=== PATIENT | male | born 1965 | race Caucasian/White ===

== ENCOUNTER → 2017-09-06 10:21 | Outpatient (POV) | payer BC, SELFPAY ==
[2017-09-06 10:32] VITALS: BP 177/105; PULSE 80; RESP 18; O2SAT 98
--- NOTE | 2017-09-06 13:16 | HMH.PMCON ---
Assessment and Plan (1) Degenerative disc disease Current visit: Yes Status: Chronic Category: Medical - Assessment and plan all Dx Assessment and Plan for all problems:: Patient is not a narcotic candidate I encouraged him to keep his neurosurgical appointment. I discussed possible interventional treatment such as injections and nerve stimulation. Patient is uninterested in that at this time. This note was dictated using voice recognition software and may contain errors or omissions HPI - Data of Consult Consult date: 09/06/17 Requesting Physician: Bing Mejia APRN Primary Care Provider: Randy Escalante Family Provider: Silvio Klein - Consult Narrative Reason for consult: low back pain History of present illness: Mr. Hurley is a 52 year old male who presents today for consultation in regards to his low back pain. Patient has an appointment with Dr. Goodson on the for consultation. Patient does have an MRI showing degenerative disc disease and spondylosis. Patient also has a disc protrusion at L5-L6. Patient rates his pain 8 out of 10 today. Patient is on Lyrica 150 mg 1 p.o. twice daily. Patient states that this does not help. Patient's tried and failed chiropractic therapy along with physical therapy. Patient states that lifting increases his pain while heat and rest decreases pain. Patient states most of it in his low back radiating down his left leg. States he is unable to take any injection therapy due to his diabetes. Patient states he is concerned about this. Patient was getting narcotics from pain management in [place] however he was discharged due to failed pill count. I discussed with the patient that we will be unable to continue writing narcotic medications but we will be more than happy to do injective therapies along with potential nerve stimulation in the future. Patient is uninterested in this at this time. CC: Bing Mejia APRN [facility] History I have reviewed the patient's past medical history: Yes 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: Reports:: Diabetes Mellitus Type 2, Hyperlipidemia, Hypertension Denies:: Diabetes Mellitus Type 1 Other 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: Reports: Arthritis Other Surgeries: Yes: Cholecystectomy - *Social History Smoking Status: Current every day smoker Tobacco Type: cigarettes # Packs/Day (cigarettes): 2 Alcohol Intake: never Occupational Status: employed Housing: house - Psychiatric History Expresses thoughts of harming self/others: None Suicide Plan Description: No Plan *Family Hx:: Unable to obtain Review of Systems - Review of Systems ROS General: no recent weight change, no fever, no sleep disturbances Respiratory: no cough, no shortness of air, no recurring pulmonary infections Cardiovascular/Peripheral Vascular: No chest pain, No palpitations, no edema, no shortness of breath. Gastrointestinal: no incontinence, normal bowel movements reported Genitourinary: no incontinence Musculoskeletal: Back pain Psychiatric: normal mood/ affect Neurological: [denies weakness in extremities], [denies balance issues] Meds Allergies Allergy/AdvReac Type Severity Reaction Status Date / Time No Known Allergies Allergy Unverified 03/16/17 14:11 Objective Vital signs: Pulse Resp BP Pulse Ox 80 18 177/105 98 09/06/17 10:32 09/06/17 10:32 09/06/17 10:32 09/06/17 10:32 Narrative: Physical Exam General: Alert and oriented x3, no acute distress, pleasant and cooperative, [on room air] Lungs: Resps E/U, Symmetrical chest expansion, Eyes: PERRL Musculoskeletal: Flexion and extension of lumbar spine somewhat guarded secondary to pain, deep tendon reflexes normal, strength in upper and lower extremities [5/5], [abnormal gait noted] Neurological: speech clear, drafter marine equal, no gross sensory deficits Opioid Risk Tool - Opioid Risk Tool-Male Family hx alcohol abuse: N Family hx illegal drugs: N Family hx rx
--- NOTE | 2017-09-06 13:19 | P.CONS_ITS ---
Assessment and Plan (1) Degenerative disc disease Current visit: Yes Status: Chronic Category: Medical - Assessment and plan all Dx Assessment and Plan for all problems:: Patient is not a narcotic candidate I encouraged him to keep his neurosurgical appointment. I discussed possible interventional treatment such as injections and nerve stimulation. Patient is uninterested in that at this time. This note was dictated using voice recognition software and may contain errors or omissions HPI - Data of Consult Consult date: 09/06/17 Requesting Physician: Bing Mejia APRN Primary Care Provider: Randy Escalante Family Provider: Silvio Klein - Consult Narrative Reason for consult: low back pain History of present illness: Mr. Hurley is a 52 year old male who presents today for consultation in regards to his low back pain. Patient has an appointment with Dr. Goodson on the for consultation. Patient does have an MRI showing degenerative disc disease and spondylosis. Patient also has a disc protrusion at L5-L6. Patient rates his pain 8 out of 10 today. Patient is on Lyrica 150 mg 1 p.o. twice daily. Patient states that this does not help. Patient's tried and failed chiropractic therapy along with physical therapy. Patient states that lifting increases his pain while heat and rest decreases pain. Patient states most of it in his low back radiating down his left leg. States he is unable to take any injection therapy due to his diabetes. Patient states he is concerned about this. Patient was getting narcotics from pain management in [place] however he was discharged due to failed pill count. I discussed with the patient that we will be unable to continue writing narcotic medications but we will be more than happy to do injective therapies along with potential nerve stimulation in the future. Patient is uninterested in this at this time. CC: Bing Mejia APRN [facility] History I have reviewed the patient's past medical history: Yes 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: Reports:: Diabetes Mellitus Type 2, Hyperlipidemia, Hypertension Denies:: Diabetes Mellitus Type 1 Other 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: Reports: Arthritis Other Surgeries: Yes: Cholecystectomy - *Social History Smoking Status: Current every day smoker Tobacco Type: cigarettes # Packs/Day (cigarettes): 2 Alcohol Intake: never Occupational Status: employed Housing: house - Psychiatric History Expresses thoughts of harming self/others: None Suicide Plan Description: No Plan *Family Hx:: Unable to obtain Review of Systems - Review of Systems ROS General: no recent weight change, no fever, no sleep disturbances Respiratory: no cough, no shortness of air, no recurring pulmonary infections Cardiovascular/Peripheral Vascular: No chest pain, No palpitations, no edema, no shortness of breath. Gastrointestinal: no incontinence, normal bowel movements reported Genitourinary: no incontinence Musculoskeletal: Back pain Psychiatric: normal mood/ affect Neurological: [denies weakness in extremities], [denies balance issues] Meds Allergies Allergy/AdvReac Type Severity Reaction Status Date / Time No Known Allergies Allergy Unverified 03/16/17 14:11 Objective Vital signs: Pulse Resp BP Pulse Ox 80 18 177/105 98 09/06/17 10:32 09/06/17 10:32 09/06/17 10:32 09/06/17 10:32 Narrative: Physical Exam General: Alert and
== END ==
PROVIDERS: Family Provider Internal Medicine; PCP Family Medicine; Visit Provider Clinical Nurse Specialist Family Health
DX: M51.36 Other intervertebral disc degeneration, lumbar region (principal)
CPT/HCPCS: 99202

== ENCOUNTER 2023-04-06 04:21 | Inpatient (IN) | payer MEDICARE, MEDICAID, SELFPAY ==
[2023-04-06 04:26] VITALS: PULSE 60
--- NOTE | 2023-04-06 04:29 | PC.NURSE ---
pt arrived to floor at this time
[2023-04-06 04:44] VITALS: BMI 28.3
[2023-04-06] MEDS: FUROSEMIDE 40MG/4ML VIAL 40 MG IV ×3 (04:54→15:51)
[2023-04-06 05:00] VITALS: BP 136/80; PULSE 68; RESP 20; TEMP 36.6; O2SAT 100
--- NOTE | 2023-04-06 05:13 | P.HP_ITS ---
History of Present Illness *Admission Date: 04/06/23 *Reason for visit:: Elevated troponin *History of present illness: This is a 57-year-old male with past medical history of COPD, CAD, HTN, HLD, DM, CHF, former smoker who presents as a transfer from [facility] for further evaluation of NSTEMI. Patient reportedly was admitted to [facility] this week with CHF exacerbation. He was IV diuresed and sent home. He was home less than 12 hours before he woke up with extreme shortness of breath again. He presented to the ER at [facility] and respiratory distress requiring CPAP. He underwent DuoNeb, IV Lasix and Solu-Medrol and had improvement in respiratory symptoms. He denies any chest pain at the time of his episode and still denies chest pain. He also reports that he was worked up recently at for evaluation of troponins and was told that his heart workup was okay Emergency department workup was notable for elevated troponin of 1406 with a change to 1449. Given patient's elevated troponins. Patient was transferred here for further evaluation of NSTEMI. Attempts were made prior to transfer here to transfer to but they were on diversion. Dr. Mcfadden called prior to transfer and is agreeable to see patient here. [facility] Disclaimer: The information contained in this section may have been updated after the patient was seen, as this information can be updated by other users. 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 (Updated 04/06/23 @ 14:21 by Enedelia Ron APRN) Above knee amputation of left lower extremity Asthma Atypical angina CAD in [place] artery Congestive heart failure COPD (chronic obstructive pulmonary disease) Diabetes mellitus Diabetes mellitus, type 2 History of left heart catheterization (LHC) Hyperlipidemia Hypertension Surgical History (Updated 04/06/23 @ 05:28 by MARGE Winchester) History of cholecystectomy Family History (Updated 04/06/23 @ 05:28 by MARGE Winchester) Family history of cancer Social History (Updated 04/06/23 @ 05:28 by MARGE Winchester) Smoking Status: Former smoker tobacco type: cigarettes packs per day: 2 alcohol intake: never current occupational status: employed and disabled Travel in the last 8 weeks: None housing: house current occupational exposures/hazards: No Review of Systems Constitutional Constitutional: Reports system reviewed and no additional complaints, except as documented, Reports body ache(s) and Reports chills Eyes Eyes: Reports system reviewed and no additional complaints, except as documented ENT Ears, Nose, Mouth, and Throat: Reports system reviewed and no additional complaints, except as documented *Cardiovascular Cardiovascular: Reports dyspnea, Reports dyspnea on exertion and Reports edema *Respiratory Respiratory: Reports dyspnea and Reports dyspnea on exertion *Gastrointestinal Gastrointestinal: Reports system reviewed and no additional complaints, except as documented *Genitourinary Genitourinary: Reports system reviewed and no additional complaints, except as documented *Musculoskeletal Musculoskeletal: Reports system reviewed and no additional complaints, except as documented *Neurologic Neurologic: Reports system reviewed and no additional complaints, except as documented Meds Home Medications and Allergies Home Medications Medication Instructions Recorded Confirmed Type atorvastatin 80 mg tablet 80 mg PO DAILY 09/06/17 04/06/23 History gabapentin 600 mg tablet 600 mg PO TID 09/06/17 04/06/23 History albuterol sulfate 90 mcg/actuation 1 puff inhalation DAILYP PRN 04/06/23 04/06/23 History aerosol inhaler Shortness Of Breath Or Wheezing aspirin 81 mg chewable tablet 81 mg PO DAILY 04/06/23 04/06/23 History carvedilol 12.5 mg tablet 12.5 mg PO BID 04/06/23 04/06/23 History dapagliflozin propanediol 10 mg 10 mg PO DAILY 04/06/23 04/06/23 History tablet (Farxiga) entecavir 0.5 mg tablet 0.5 mg PO DIRECTED 04/06/23 04/06/23 History furosemide 40 mg tablet 40 mg PO DAILY 04/06/23 04/06/23 History hydralazine 50 mg tablet 50 mg PO TID 04/06/23 04/06/23 History hydrochlorothiazide 25 mg tablet 25 mg PO DAILY 04/06/23 04/06/23 History insulin aspart U-100 100 unit/mL 5 unit SQ TIDWMEAL 04/06/23 04/06/23 History (3 mL) subcutaneous pen (Novolog FlexPen U-100 Insulin aspart) insulin detemir U-100 100 unit/mL 13 unit SQ HS 04/06/23 04/06/23 History (3 mL) subcutaneous pen (Levemir FlexPen) isosorbide mononitrate 60 mg 60 mg PO DAILY 04/06/23 04/06/23 History tablet,extended release 24 hr loperamide 2 mg capsule 2 mg PO DAILYP PRN Diarrhea 04/06/23 04/06/23 History nitroglycerin 0.4 mg sublingual 0.4 mg sublingual Q5M PRN Chest 04/06/23 04/06/23 History tablet Pain umeclidinium 62.5 mcg/actuation 1 inh inhalation DAILY 04/06/23 04/06/23 History blister powder for inhalation (Incruse Ellipta) New Prescriptions to Start Prescriptions: Allergies Allergy/AdvReac Type Severity Reaction Status Date / Time No Known Allergies Allergy Unverified 03/16/17 14:11 Exam Data for Last 24 hours I & O for Last 24 hours: Intake & Output 04/03/23 04/04/23 04/05/23 04/06/23 23:59 23:59 23:59 23:59 Weight 94.801 kg Constitutional Constitutional: no acute distress *Routine HEENT Exam Head: Present normocephalic and atraumatic Eye: Present EOMI and PERRL ENT: Present mucous membranes moist *Routine Neck Exam Neck: Present supple, full ROM and JVD *Routine Respiratory Exam Respiratory: Present wheezes and normal respiratory effort Comments: Requiring 6 L nasal *Routine Cardiovascular Exam Cardiovascular: Present RRR, Normal S1 and Normal S2 *Routine Abdominal Exam Abdominal: Present soft and normoactive bowel sounds *Routine Rectal Exam Rectal:: deferred *Routine Genitalia Exam Genitalia:: deferred *Routine Extremities Exam Extremities: Present full ROM, normal capillary refill and amputation (Left AKA) *Routine Skin Exam Skin: Present intact and dry *Routine Neurological Exam Neurological: Present alert, oriented X3 and CN II-XII intact Assessment and Plan *Assessment and plan (1) Acute exacerbation of CHF (congestive heart failure): Status: Acute Qualifiers: Heart failure type: unspecified Qualified Code(s): I50.9 - Heart failure, unspecified Category: Medical Code(s): I50.9 - Heart failure, unspecified (2) Non-STEMI (non-ST elevated myocardial infarction): Status: Acute Category: Medical Code(s): I21.4 - Non-ST elevation (NSTEMI) myocardial infarction (3) COPD (chronic obstructive pulmonary disease): Status: Acute Qualifiers: COPD type: chronic bronchitis Chronic bronchitis type: unspecified Dann lified Code(s): J42 - Unspecified chronic bronchitis Category: Medical Code(s): J44.9 - Chronic obstructive pulmonary disease, unspecified (4) Hypertension: Status: Acute Qualifiers: Hypertension type: primary hypertension Qualified Code(s): I10 - Essential (primary) hypertension Category: Medical Code(s): I10 - Essential (primary) hypertension (5) Diabetes mellitus: Status: Acute Qualifiers: Diabetes mellitus complication status: without complication Diabetes mellitus medical terminologist insulin use: with medical terminologist use Diabetes mellitus type: type 2 Qualified Code(s): E11.9 - Type 2 diabetes mellitus without complications; Z79.4 - assisted (current) use of insulin Category: Medical Code(s): E11.9 - Type 2 diabetes mellitus without complications Plan Case discussed with ER physician, request admission for further management of CHF exacerbation, NSTEMI, KKOO versus CKD. Medicine agreed to admit. CHF exacerbation, unspecified Edema of the right lower extremity with pulmonary vascular congestion on x-ray BNP elevated at outside hospital at 1000 Will initiate IV Lasix twice daily Formal echo in a.m. NSTEMI Likely demand given respiratory distress at outside hospital Does have a history of CAD with last stent placement 7 years ago Cardiology consulted Trend tropinins, initial troponin elevated Continue Heparin gtt Nitro for chest pain EKG for worsenign or new chest pain Continue ASA daily Continue antiplatelet therapy A1c and Lipid panel pending HTN HLD CAD Continue DAPT Continue carvedilol Continue statin medication Continue amlodipine DM2 Continue long acting and sliding scale insulin A1C pending DVT PPx Heparin gtt Full Code Rounded on patient after nurse practitioner. Personally examined and interviewed patient. Agree with exam findings and care plan as documented. Cardiology consulted. Will hold on heart cath today given creatinine. Working on obtaining records from [facility] to see if this is his baseline. Patient making urine. A1c 7.5. Troponin stable at 1.6. BNP severely elevated at 43,000
[2023-04-06] MEDS: HEPARIN SODIUM,PORCINE/D5W 500 ML 20 UNIT IV (05:32)
[2023-04-06 05:41] LABS: Basophils % 0.1 % (0.1-2.0); Eosinophils % 0.1 % (0.1-12.0); Hemoglobin 10.3 g/dL (14.1-18.0); Lymphocytes # 0.7 K/mm3 (0.7-4.5); Lymphocytes % 9.2 % (10-50); Mean Corpuscular HGB Conc 33.2 g/dL (31.8-35.4); Mean Corpuscular Hemoglobin 29.7 pg (27.0-31.2); Mean Corpuscular Volume 89.6 fl (80-94); Mean Platelet Volume 9.8 fl (7.4-10.4); Monocytes # 0.1 K/mm3 (0.1-1.0); Monocytes % 1.3 % (1.7-9.3); Neutrophils # 6.7 K/mm3 (1.8-7.8); Neutrophils % 89.3 % (37.0-80.0); Platelet Count 185 K/mm3 (142-424); Red Blood Count 3.47 M/mm3 (4.60-6.20); Red Cell Distribution Width 14.8 % (11.5-17.5); White Blood Count 7.5 K/mm3 (4.8-10.8)
[2023-04-06 05:42] LABS: MANUAL DIFFERENTIAL MANUAL DIFFERENTIAL (MANUAL DIFF)
[2023-04-06 05:47] LABS: Lactic Acid 1.3 mmol/L (0.7-2.1)
[2023-04-06 05:48] LABS: Anion Gap 11.8 mEq/L (5-15); Blood Urea Nitrogen 68 mg/dl (9-20); Calcium 7.9 mg/dl (8.4-10.2); Carbon Dioxide 24 mmol/L (22.0-30.0); Chloride 102 mmol/L (98-107); Chol/HDL Ratio 2.4 (1-3.5); Cholesterol 184 mg/dl (140-200); Creatinine Clearance Estimated 39 mL/min (50-200); Estimated Glomerular Filt Rate 23 ml/min (>60); GFR (African American) 27 ML/MIN (>60); Glucose 292 mg/dl (74-100); HDL Cholesterol 77 mg/dl (40-60); Potassium 4.8 mmoL/L (3.5-5.1); Sodium 133 mmol/L (136-145); Triglycerides 65 mg/dl (30-150); VLDL Cholesterol 13 mg/dL (0-40)
[2023-04-06 05:50] LABS: Lymphocytes % 10 % (10-50); Monocytes % 2 % (2-9); Neutrophils % 88 % (42-76); Platelet Estimate Normal; Prothrombin Time 11.8 seconds (10.1-12.5); RBC Morphology Normal; Total Cells Counted 100
[2023-04-06 05:55] LABS: Hemoglobin A1C 7.5 % (4.0-6.0)
[2023-04-06 06:05] LABS: Procalcitonin 0.169 ng/mL (0.0-2.0)
[2023-04-06 06:12] LABS: POC Glucose,Bedside 310 (70-110)
[2023-04-06 06:14] LABS: Troponin I 1.59 ng/ml (0.00-0.034)
--- NOTE | 2023-04-06 06:19 | ECG_ITS ---
APPROVED REPORT Exam: Resting ECG HR:72 bpm ECG Measurements Heart Rate 72 AXES DE 146 P 51 QRSd 110 QRS -3 QT 425 T 167 QTc [address] DEVIATION AND MODERATE T-WAVE ABNORMALITY, CONSIDER LATERAL ISCHEMIA [-0.1+ mV T-WAVE IN I/aVL/V5/V6] ABNORMAL ECG UNCONFIRMED REPORT Electronically signed by : Ajay Ware MD 04/06/2023 20:39:15
[2023-04-06] MEDS: humaLOG 100 UNITS/ML 3ML VIAL (SSI) SQ ×4 (06:20→20:28)
--- NOTE | 2023-04-06 06:39 | PC.NURSE ---
Pt A&Ox4. Pt has not complained of any pain since arriving to the floor. Above knee amputation to the left leg. Right leg 1+ edema, dry, flaky skin noted to extremity, with some scabs on the lower leg. Lung sounds wheezing. Bowel sounds active. Pt started on heparin drip per Roman from pharmacy.
--- NOTE | 2023-04-06 07:49 | HMH.PHAHEP ---
[facility] Pharmacy Heparin Dosing Demographic Data Admission date:: 04/06/23 Date: 04/06/23 Time: 07:49 Allergies Allergy/AdvReac Type Severity Reaction Status Date / Time No Known Allergies Allergy Unverified 03/16/17 14:11 Height: 1.83 m Weight: 94.8 kg Indication Medication therapy:: Heparin Current Active Problems (Updated 04/08/23 @ 08:11 by Marco Antonio Valentine MD) Anemia (Acute) Acute blood loss anemia (Acute) HFrEF (heart failure with reduced ejection fraction) (Acute) Peripheral arterial disease (Acute) Congestive heart failure (Acute) Atypical angina (Acute) Hyperlipidemia (Acute) Diabetes mellitus (Acute) COPD (chronic obstructive pulmonary disease) (Acute) Hypertension (Acute) CAD in [place] artery (Acute) Non-STEMI (non-ST elevated myocardial infarction) (Acute) Acute exacerbation of CHF (congestive heart failure) (Acute) CVA?: No Bleeding problem?: No Kidney disease?: No LA?: No Desired PTT range:: 50-75 seconds Labs Anticoagulation Lab Results:: 04/06/23 05:31 Hgb 10.3 L Hct 31.0 L Plt Count 185 Monitoring Dose Monitor 1: Date: 04/06/23 Time: 05:30 PTT Result:: 47.0 Infusion Rate:: 1,000 UNITS/HR Dose Monitor 2: Date: 04/06/23 Time: 11:30 PTT Result:: 42.3 Infusion Rate:: INCREASE RATE TO 1,200 UNITS/HR Comment:: 3,000 UNIT BOLUS Dose Monitor 3: Date: 04/06/23 Time: 18:30 PTT Result:: 65.9 Infusion Rate:: 1,200 UNITS/HR Dose Monitor 4: Date: 04/07/23 Time: 01:30 PTT Result:: 24.4 Infusion Rate:: 1,200 UNITS/HR Comment:: 4,000 UNIT BOLUS. PATIENT'S IV HAD INFILTRATED. Dose Monitor 5: Date: 04/07/23 Time: 09:10 PTT Result:: 62.0 Infusion Rate:: 1,200 UNITS/HR Dose Monitor 6: Date: 04/07/23 Time: 16:07 PTT Result:: 53.5 Infusion Rate:: 1,200 UNITS/HR Dose Monitor 7: Date: 04/07/23 Time: 22:02 PTT Result:: 51.3 Infusion Rate:: 1,200 UNITS/HR Dose Monitor 8: Date: 04/08/23 Time: 04:10 PTT Result:: 50.4 Infusion Rate:: 1,200 UNITS/HR Dose Monitor 9: Date: 04/08/23 Time: 11:15 PTT Result:: 56.7 Infusion Rate:: 1,200 UNITS/HR Dose Monitor 10: Date: 04/08/23 Time: 20:27 Comment:: DRIP STOPPED AFTER CATH Core Measures Is INR > or = 2 at discharge?: No Most Recent Labs:: Laboratory Results - last 24 hr 04/06/23 05:31: WBC 7.5, RBC 3.47 L, Hgb 10.3 L, Hct 31.0 L, MCV 89.6, MCH 29.7, MCHC 33.2, RDW 14.8, Plt Count 185, MPV 9.8, Neut % (Auto) 89.3 H, Lymph % (Auto) 9.2 L, [place] % (Auto) 1.3 L, Eos % (Auto) 0.1, Baso % (Auto) 0.1, Neut # (Auto) 6.7, Lymph # (Auto) 0.7, [place] # (Auto) 0.1, Eos # (Auto) 0.0, Baso # (Auto) 0.0, Total Counted 100, Neutrophils % (Manual) 88 H, Lymphocytes % (Manual) 10, Monocytes % (Manual) 2, Platelet Estimate Normal, RBC Morphology Normal, PT 11.8, INR 1.10, APTT 47.0 H, Sodium 133 L, Potassium 4.8, Chloride 102, Carbon Dioxide 24, Anion Gap 11.8, BUN 68 H, Creatinine 2.90 H, Estimated Creat Clear 39, Estimated GFR 23 L, Est GFR ( Amer) 27 L, Glucose 292 H, Hemoglobin A1c 7.5 H, Lactate 1.3, Calcium 7.9 L, Troponin I 1.59 H, Triglycerides 65, Cholesterol 184, LDL Cholesterol Direct 80.60 L, VLDL Cholesterol 13, HDL Cholesterol 77 H, Cholesterol/HDL Ratio 2.4, Procalcitonin 0.169 04/06/23 06:00: POC Glucose 310 H* If INR was < than 2.0 why was therapy stopped?: DRIP STOPPED AFTER CATH Were Heparin and Warfarin started on the same day?: No If not, why?: DRIP STOPPED AFTER CATH
[2023-04-06 08:00] VITALS: BP 148/81; PULSE 60; PULSE 71; RESP 19; TEMP 36.5; O2SAT 100
[2023-04-06] MEDS: CLOPIDOGREL 75MG TAB 75 MG PO (09:12)
[2023-04-06] MEDS: CARVEDILOL 6.25MG TABLET 6.25 MG PO ×2 (09:12→20:28)
[2023-04-06] MEDS: GABAPENTIN 300MG CAPSULE 300 MG PO ×3 (09:12→20:28)
[2023-04-06] MEDS: ISOSORBIDE MONO 60MG TAB.ER.24H 60 MG PO (09:12)
[2023-04-06] MEDS: ASPIRIN 81MG CHEWABLE TABLET 81 MG PO (09:13)
[2023-04-06 09:15] LABS: NT Pro Brain Natriuretic Pep. 42600 pg/mL (0-125)
[2023-04-06 09:20] LABS: Troponin I 1.59 ng/ml (0.00-0.034)
--- OUTSIDE RECORDS SUMMARY | 2023-04-06 10:20 | XMS_ITS | Continuity of Care Document ---
Author Name Unknown Address [address] [place] [address] [phone] Organization [facility] Phone Care Team Providers Care Medical Imaging Technologist Name Role Phone JOSE ORLANDO Admitting DECLINED, PCP Primary Care Unavailable JOSE ORLANDO Unavailable JOSE ORLANDO Primary Attending ALLERGIES AND ADVERSE REACTIONS ALLERGIES AND ADVERSE REACTIONS Code System Allergy Substance Adverse Reaction Date Reaction (Severity) Comment Status Reported By Updated By [id number] RXNorm PENICILLIN Rash (Moderate) active [id number] on March 23, 2023 8:30:57 AM UT FAMILY HISTORY RELATION: Father Status: Cause of : Malignant neoplastic disease Age at : 60 SNOMED-CT Diagnosis Age At Onset [id number] Malignant neoplastic disease RELATION: Mother Status: Cause of : Congestive heart failure Age at : 58 SNOMED-CT Diagnosis Age At Onset [id number] Congestive heart failure RESULTS Patient: WANDER JONES RAY Date of : May [birth year] LABORATORY RESULTS ORDER 200: ARTERIAL BLOOD GA S (LOINC: 49638-5) ORDER DATE: March 23, 2023 8:27:00 AM UTC Specimen Source: Whole Blood PERFORMING LAB: [address] [id number] Result Comment: Final Result Date: March 23, 2023 8:45:00 AM UTC (TECH: TS1) LOINC TEST FLAG [place] [address]-7 Specimen source subject [Type] N ARTERIAL March 23, 2023 8:45:00 AM UTC (TECH: TS1) 25831-0 Arterial patency Wrist artery --pre arterial puncture N YES March 23, 2023 8:45:00 AM UTC (TECH: TS1) 2744-1 pH of Arterial blood L 7.340 7.35 - 7. 45 March 23, 2023 8:45:00 AM UTC (TECH: TS1) 2019-8 Carbon dioxide [Partial pressure] in Arterial blood H 58 mmHg 35 mmHg - 45 mmHg March 23, 2023 8:45:00 AM UTC (TECH: TS1) 2703-7 Oxygen [Partial pressure] in Arterial blood H 188.0 mmHg 80 mmHg - 100 mmHg March 23, 2023 8:45:00 AM UTC (TECH: TS1) 11065-4 Bicarbonate [Moles/volume] standard in Arterial blood H 28.2 mEq/L 21 mEq/L - 25 mEq/L March 23, 2023 8:45:00 AM UTC (TECH: TS1) 59005-4 Base excess standard in Arterial blood by calculation N 4.1 March 23, 2023 8:45:00 AM UTC (TECH: TS1) 2714-4 Fractional oxyhemoglobin in Arterial blood N 100 % March 23, 2023 8:45:00 AM UTC (TECH: TS1) 3150-0 Inhaled oxygen concentration N 100.0 % March 23, 2023 8:45:00 AM UTC (TECH: TS1) 06497-9 Oxygen gas flow Oxygen delivery system N BIPAP March 23, 2023 8:45:00 AM UTC (TECH: TS1) 10989-3 Room temperature N 37.0 Dec emb 2022 8:45:00 AM UTC (TECH: TS1) ORDER 300: B-TYPE NATRIURETI C PEPTIDE BNP (LOINC: 46844-5) ORDER DATE: March 23, 2023 8:27:00 AM UT Specimen Source: Whole Blood PERFORMING LAB: [address] [id number] Result Comment: Final Result Date: March 23, 2023 9:19:00 AM UT (TECH: RJV) LOINC TEST FLAG [place] [address]-7 Natriuretic peptide B [Mass/volume] in Serum or Plasma H 1770.0 pg/mL 0.0 pg/mL - 100 pg/mL March 23, 2023 9:19:00 AM UTC (TECH: RJV) ORDER 600: CBC AUTO W DIFF ( LOINC: 35244-0) ORDER DATE: March 23, 2023 8:27:00 AM UTC Specimen Source: Whole Blood PERFORMING LAB: [address] [id number] Result Comment: Final Result Date: March 23, 2023 8:59:00 AM UTC (TECH: [employer]) LOINC TEST FLAG RESULT REFERENCE RANGE UPDA YOAV BY 6690-2 Leukocytes [#/volume] in Blood by Automated count H 14.7 10^3/uL 4.5 10^3/uL - 11.5 10^3/uL March 23, 2023 8:59:00 AM UTC (TECH: [employer]) 789-8 Erythrocytes [#/volume] in Blood by Automated count N 4.37 10^6/uL 4.25 10^6/uL - 5.57 10^6/uL March 23, 2023 8:59:00 AM UTC (TECH: [employer]) 718-7 Hemoglobin [Mass/volume] in Blood L 12.3 g/dL 13.5 g/dL - 17.2 g/dL March 23, 2023 8:59:00 AM UTC (TECH: [employer]) 24235-5 Hematocrit [Volume Fraction] of Blood L 39.5 % 42.0 % - 52.0 % March 23, 2023 8:59:00 AM UTC (TECH: [employer]) 787-2 Erythrocyte mean corpuscular volume [Entitic volume] by Automated count N 90.4 fl 80 fl - 95 fl March 23, 2023 8:59:00 AM UTC (TECH: [employer]) 53371-7 Erythrocyte mean corpuscular hemoglobin [Entitic mass] in Blood from [place] by Automated count N 28.1 pg 27.0 pg - 34.0 pg March 23, 2023 8:59:00 AM UTC (TECH: [employer]) 03602-1 Erythrocyte mean corpuscular hemoglobin concentration [Mass/volume] in Blood from [place] by Automated count L 31.1 g/dL 32.0 g/dL - 36.0 g/dL March 23, 2023 8:59:00 AM UTC (TECH: [employer]) 38257-2 Platelets [#/volume] in Blood N 337 10^3/uL 150 10^3/uL - 450 10^3/uL March 23, 2023 8:59:00 AM UTC (TECH: [employer]) 33649-2 Erythrocyte distribution width [Ratio] N 13.9 % 12.3 % - 15.1 % March 23, 2023 8:59:00 AM UTC (TECH: RJV) 51326-3 Platelet mean volume [Entitic volume] in Blood by Automated count H 11.6 fl 7.4 fl - 10.4 fl March 23, 2023 8:59:00 AM UTC (TECH: RJV) 72612-4 Granulocytes/100 leukocytes in Blood by Automated count N 41.0 % 40 % - 75 % March 23, 2023 8:59:00 AM UTC (TECH: RJV) 736-9 Lymphocytes/100 leukocytes in Blood by Automated count N 45.8 % 15 % - 57 % March 23, 2023 8:59:00 AM UTC (TECH: RJV) 5905-5 Monocytes/100 leukocytes in Blood by Automated count N 11.0 % 4.0 % - 12.0 % March 23, 2023 8:59:00 AM UTC (TECH: RJV) 713-8 Eosinophils/100 leukocytes in Blood by Automated count N 1.2 % 0.0 % - 4.0 % March 23, 2023 8:59:00 AM UTC (TECH: RJV) 706-2 Basophils/100 leukocytes in Blood by Automated count N 0.5 % 0.0 % - 1.0 % March 23, 2023 8:59:00 AM UTC (TECH: RJV) 56689-9 Immature granulocytes [#/volume] in Blood N 0.5 % 0.0 % - 0.8 % March 23, 2023 8:59:00 AM UTC (TECH: RJV) 61706-0 Granulocytes [#/volume] in Blood by Automated count N 6.04 10^3/uL March 23, 2023 8:59:00 AM UTC (TECH: RJV) 731-0 Lymphocytes [#/volume] in Blood by Automated count N 6.74 10^3/uL March 23, 2023 8:59:00 AM UTC (TECH: RJV) 742-7 Monocytes [#/volume] in Blood by Automated count N 1.62 10^3/uL March 23, 2023 8:59:00 AM UTC (TECH: RJV) 711-2 Eosinophils [#/volume] in Blood by Automated count N 0.17 10^3/uL March 23, 2023 8:59:00 AM UT (TECH: [employer]) 704-7 Basophils [#/volume] in Blood by Automated count N 0.07 10^3/uL March 23, 2023 8:59:00 AM UT (TECH: [employer]) 30147-1 Immature granulocytes [#/volume] in Blood N 0.08 10^3/uL March 23, 2023 8:59:00 AM UT (TECH: [employer]) 81525-0 Manual differential performed [Presence] in Blood N NO March 23, 2023 8:59:00 AM UT (TECH: [employer]) ORDER 700: COMP METABOLIC PA LINDA (LOINC: 98425-7) ORDER DATE: March 23, 2023 8:27:00 AM UT Specimen Source: Plasma PERFORMING LAB: [address] [id number] Result Comment: Final Result Date: March 23, 2023 9:13:00 AM UT (TECH: [employer]) LOINC TEST FLAG RESULT REFERENCE RANGE UPDA YOAV BY 2951-2 Sodium [Moles/volume ] in Serum or Plasma N 143 mmol/L 136 mmol/L - 145 mmol/L March 23, 2023 9:13:00 AM UT (TECH: [employer]) 2823-3 Potassium [Moles/volume] in Serum or Plasma N 4.7 mmol/L 3.5 mmol/L - 5.1 mmol/L March 23, 2023 9:13:00 AM UT (TECH: [employer]) 5-0 Chloride [Moles/volu me] in Serum or Plasma N 105 mmol/L 98 mmol/L - 107 mmol/L March 23, 2023 9:13:00 AM UT (TECH: [employer]) 8-9 Carbon dioxide, tota l [Moles/volume] in Serum or Plasma N 30 mmol/L 21 mmol/L - 32 mmol/L March 23, 2023 9:13:00 AM UT (TECH: [employer]) 75391-9 Anion gap 3 in Serum or Plasma N 8.0 March 23, 2023 9:13:00 AM UT (TECH: [employer]) 2345-7 Glucose [Mass/volume ] in Serum or Plasma H 287 mg/dL 70 mg/dL - 110 mg/dL March 23, 2023 9:13:00 AM [facility] (TECH: [employer]) 3094-0 Urea nitrogen [Mass/volume] in Serum or Plasma H 67 mg/dL 7 mg/dL - 18 mg/dL March 23, 2023 9:13:00 AM [facility] (TECH: [employer]) 2160-0 Creatinine [Mass/volume] in Serum or Plasma H 3.4 mg/dL 0.8 mg/dL - 1.3 mg/dL March 23, 2023 9:13:00 AM [facility] (TECH: [employer]) 3097-3 Urea nitrogen/Creatinine [Mass Ratio] in Serum or Plasma N 19.7 Ratio 9 Ratio - 21 Ratio March 23, 2023 9:13:00 AM [facility] ([employer]: [employer]) 30505-5 Glomerular filtratio n rate/1.73 sq M.predicted by Creatinine-based formula (MDRD) L 20 mL/min >60 March 23, 2023 9:13:00 AM [facility] (TECH: [employer]) 2885-2 Protein [Mass/volume ] in Serum or Plasma N 7.0 g/dL 6.4 g/dL - 8.2 g/dL March 23, 2023 9:13:00 AM [facility] (TECH: [employer]) 1751-7 Albumin [Mass/volume ] in Serum or Plasma L 3.1 g/dL 3.4 g/dL - 5.0 g/dL March 23, 2023 9:13:00 AM [facility] ([employer]: [employer]) 61013-5 Calcium [Mass/volume ] in Serum or Plasma N 8.7 mg/dL 8.5 mg/dL - 10.1 mg/dL March 23, 2023 9:13:00 AM [facility] (TECH: [employer]) 51446-6 Calcium [Mass/volume ] corrected for total protein in Serum or Plasma N 9.4 mg/dL 8.5 mg/dL - 10.1 mg/dL March 23, 2023 9:13:00 AM [facility] (TECH: [employer]) 1975-2 Bilirubin.total [Mass/volume] in Serum or Plasma N 0.6 mg/dL 0.4 mg/dL - 1.5 mg/dL March 23, 2023 9:13:00 AM [facility] (TECH: RJV) 1920-8 Aspartate aminotransferase [Enzymatic activity/volume] in Serum or Plasma H 48 U/L 15 U/L - 37 U/L March 23, 2023 9:13:00 AM UT (TECH: [employer]) 1742-6 Alanine aminotransferase [Enzymatic activity/volume] in Serum or Plasma N 31 U/L 12 U/L - 78 U/L March 23, 2023 9:13:00 AM UT (TECH: [employer]) 6768-6 Alkaline phosphatase [Enzymatic activity/volume] in Serum or Plasma H 232 U/L 50 U/L - 170 U/L March 23, 2023 9:13:00 AM UT (TECH: [employer]) ORDER 800: CK MB (LOINC: 326 73-6) ORDER DATE: March 23, 2023 8:27:00 AM UT Specimen Source: Plasma PERFORMING LAB: [place] [address] Result Comment: Final Result Date: March 23, 2023 9:13:00 AM [facility] (TECH: [employer]) LOINC TEST FLAG [place] [address]-4 Creatine kinase.MB [Enzymatic activity/volume] in Serum or Plasma N 2.3 ng/mL 0.0 ng/mL - 3.6 ng/mL March 23, 2023 9:13:00 AM UT (TECH: [employer]) ORDER 900: D-DIMER QUANTITAT ADAM (LOINC: 7799-0) ORDER DATE: March 23, 2023 8:27:00 AM UT Specimen Source: Plasma PERFORMING LAB: [address] [id number] Result Comment: Final Result Date: March 23, 2023 9:12:00 AM UT (TECH: [employer]) LOINC TEST FLAG RESULT REFERENCE RANGE UPDA YOAV BY 7799-0 Fibrin D-dimer [Units/volume] in Platelet poor plasma HH 1467.26 ng/mL 0 ng/mL - 500 ng/mL March 23, 2023 9:12:00 AM UT (TECH: RJV) ORDER 1000: LACTIC ACID (PARI NC: 96173-2) ORDER DATE: March 23, 2023 8:27:00 AM UT Specimen Source: Serum/Plasm a PERFORMING LAB: [place] [address] Result Comment: Final Result Date: March 23, 2023 9:19:00 AM UTC (TECH: RJV) LOINC TEST FLAG [place] [address]-5 Lactate [Mass/volume] in Serum or Plasma H 2.1 mmole/L 0.4 mmole/L - 2.0 mmole/L March 23, 2023 9:19:00 AM UTC (TECH: RJV) ORDER 1100: PT PROTHROMBIN T VINCENT W INR (LOINC: 80950-2) ORDER DATE: March 23, 2023 8:27:00 AM UTC Specimen Source: Plasma PERFORMING LAB: [address] [id number] Result Comment: Final Result Date: March 23, 2023 8:59:00 AM UTC (TECH: RJV) LOINC TEST FLAG [place] [address]-9 INR in Platelet poor plasma or blood by Coagulation assay N 10.0 seconds 9.1 seconds - 12.0 seconds March 23, 2023 8:59:00 AM UTC (TECH: RJV) 6301-6 INR in Platelet poor plasma by Coagulation assay N 0.91 0.9 - 1.1 March 23, 2023 8:59:00 AM UTC (TECH: RJV) ORDER 1200: PTT PARTIAL THRO MB TIME (LOINC: 62132-7) ORDER DATE: March 23, 2023 8:27:00 AM UTC Specimen Source: Plasma PERFORMING LAB: [address] [id number] Result Comment: Final Result Date: March 23, 2023 8:59:00 AM UTC (TECH: RJV) LOINC TEST FLAG [place] [address]-7 Activated partial thromboplastin time (aPTT) in Platelet poor plasma by Coagulation assay L 20.5 seconds 24.5 seconds - 32.8 seconds March 23, 2023 8:59:00 AM UTC (TECH: RJV) ORDER 1300: TROPONIN QUANT ( LOINC: 87683-1) ORDER DATE: March 23, 2023 8:27:00 AM UTC Specimen Source: Plasma PERFORMING LAB: [address] [id number] Result Comment: Final Result Date: March 23, 2023 9:14:00 AM UTC (TECH: RJV) LOINC TEST FLAG [place] [address]-3 Troponin I.cardiac panel - Serum or Plasma by High sensitivity method HH 138 ng/L 0 ng/L - 76 ng/L March 23, 2023 9:14:00 AM UTC (TECH: [employer]) ORDER 1400: INFLUENZA A/B SC REEN (LOINC: 94930-2) ORDER DATE: March 23, 2023 8:27:00 AM UTC Specimen Source: Swab PERFORMING LAB: [address] [id number] Result Comment: Final Result Date: March 23, 2023 9:11:00 AM UTC (TECH: [employer]) LOINC TEST FLAG [place] [address]-2 Influenza virus A Ag [Presence] in Nose N negative NEGATIVE March 23, 2023 9:11:00 AM UTC (TECH: [employer]) 26764-5 Haemophilus influenzae B Ag [Presence] in Serum N negative NEGATIVE March 23, 2023 9:11:00 AM UTC (TECH: [employer]) 99065-0 Internal control result N PASS PASS March 23, 2023 9:11:00 AM UTC (TECH: [employer]) ORDER 1500: UA AND MICRO/CUL T IF INDICATED (LOINC: 50608-0) ORDER DATE: March 23, 2023 8:27:00 AM UTC Specimen Source: URINE PERFORMING LAB: [address] [id number] Result Comment: Final Result Date: March 23, 2023 9:47:00 AM UTC (TECH: [employer]) LOINC TEST FLAG RESULT REFERENCE RANGE UPDA YOAV BY 5778-6 Color of Urine N STRAW YELLOW Decem 2022 9:47:00 AM UTC (TECH: RJV) 5767-9 Appearance of Urine N CLEAR CLEAR March 23, 2023 9:47:00 AM UTC (TECH: RJV) 5792-7 Glucose [Mass/volume] in Urine by Test strip N 100 NORMAL March 23, 2023 9:47:00 AM UTC (TECH: RJV) 00053-8 Bilirubin.total [Mass/volume] in Urine by Automated test strip N NEGATIVE NEGATIVE March 23, 2023 9:47:00 AM UTC (TECH: RJV) 5797-6 Ketones [Mass/volume] in Urine by Test strip N NEGATIVE NEGATIVE March 23, 2023 9:47:00 AM UTC (TECH: [employer]) 2965-2 Specific gravity of Urine N 1.010 1.005 - 1.035 March 23, 2023 9:47:00 AM UTC (TECH: [employer]) 43407-2 Erythrocytes [#/volume] in Urine by Automated test strip N 25 (1+) /mcL NEGATIVE March 23, 2023 9:47:00 AM UTC (TECH: [employer]) 57932-7 pH of Urine by Automated test strip N 6.00 5.0 - 7.5 March 23, 2023 9:47:00 AM UTC (TECH: [employer]) 31345-6 Protein [Presence] in Urine by Test strip N 30 (1+) mg/dL NEGATIVE March 23, 2023 9:47:00 AM UTC (TECH: [employer]) 88760-9 Urobilinogen [Mass/volume] in Urine by Automated test strip N NORM NORMAL March 23, 2023 9:47:00 AM UTC (TECH: [employer]) 99765-0 Nitrate [Presence] in Urine N NEGATIVE NEGATIVE March 23, 2023 9:47:00 AM UTC (TECH: [employer]) 34382-1 Leukocytes [#/volume] in Urine by Test strip N NEGATIVE NEGATIVE March 23, 2023 9:47:00 AM UTC (TECH: [employer]) 92096-6 Other elements in Urine sediment N NOT REQUIRED March 23, 2023 9:47:00 AM UTC (TECH: [employer]) 65186-1 Microscopic observation [Identifier] in Urine sediment by Light microscopy N YES March 23, 2023 9:47:00 AM UTC (TECH: [employer]) 07962-7 Erythrocytes [#/area] in Urine sediment by Microscopy high power field N 1-5 0-3 March 23, 2023 9:47:00 AM UTC (TECH: [employer]) 5821-4 Leukocytes [#/area] in Urine sediment by Microscopy high power field N NONE SEEN NONE SEEN March 23, 2023 9:47:00 AM UTC (TECH: [employer]) 55664-4 Epithelial cells.squamous [#/area] in Urine sediment by Microscopy high power field N NONE SEEN NONE SEEN March 23, 2023 9:47:00 AM UTC (TECH: [employer]) 5769-5 Bacteria [#/area] in Urine sediment by Microscopy high power field N NONE SEEN NONE SEEN March 23, 2023 9:47:00 AM UTC (TECH: RJV) ORDER 1600: SARS-COV-2 SOLAN A IN HOUSE (LOINC: 44169-2) ORDER DATE: March 23, 2023 8:27:00 AM UTC Specimen Source: Nasopharyng eal PERFORMING LAB: [place] [address] Result Comment: Final Result Date: March 23, 2023 9:57:00 AM UTC (TECH: RJV) LOINC TEST FLAG [place] [address]-1 SARS-CoV-2 (COVID-19) RNA [Presence] in Respiratory specimen by MAE with probe detection N NEGATIVE NEGATIVE March 23, 2023 9:57:00 AM UTC (TECH: RJV) ORDER 1900: ALCOHOL QUANT (L OINC: 5645-7) ORDER DATE: March 23, 2023 8:29:00 AM UTC Specimen Source: Serum/Plasm a PERFORMING LAB: [place] [address] Result Comment: Final Result Date: March 23, 2023 9:14:00 AM UTC (TECH: RJV) LOINC TEST FLAG RESULT REFERENCE RANGE UPDA YOAV BY 5645-7 Ethanol [Mass/volume] in Urine N <3 mg/dL 0 mg/dL - 10 mg/dL March 23, 2023 9:14:00 AM UTC (TECH: RJV) ORDER 2100: TROPONIN I 1 LARISSA R PROTOCOL (LOINC: 06064-9) ORDER DATE: March 23, 2023 8:31:00 AM UTC Specimen Source: Plasma PERFORMING LAB: [address] [id number] Result Comment: Final Result Date: March 23, 2023 9:50:00 AM UTC (TECH: RJV) LOINC TEST [place] [address]-5 Troponin I.cardiac panel - Serum or Plasma by High sensitivity method HH 135 ng/L 0 ng/L - 76 ng/L March 23, 2023 9:50:00 AM UTC (TECH: RJV) ORDER 2200: URINE DRUG SCREE N - MEDTOX (LOINC: 77564-7) ORDER DATE: March 23, 2023 9:15:00 AM UTC Specimen Source: URINE PERFORMING LAB: [address] [id number] Result Comment: Final Result Date: March 23, 2023 9:48:00 AM UTC (TECH: RJV) LOINC TEST FLAG RESULT REFERENCE RANGE UPDATED BY 3530-3 Tetrahydrocannabinol [Mass/volume] in Urine N NEGATIVE NEGATIVE March 23, 2023 9:48:00 AM UTC (TECH: RJV) 3937-0 Phencyclidine [Mass/ volume] in Urine N NEGATIVE NEGATIVE March 23, 2023 9:48:00 AM UTC (TECH: RJV) 3398-5 Cocaine [Mass/volume] in Urine N NEGATIVE NEGATIVE March 23, 2023 9:48:00 AM UTC (TECH: RJV) 48824-7 Methylenedioxymetham phetamine [Mass/volume] in Urine N NEGATIVE NEGATIVE March 23, 2023 9:48:00 AM UTC (TECH: RJV) 8220-6 Opiates [Mass/volume] in Urine N NEGATIVE NEGATIVE March 23, 2023 9:48:00 AM UTC (TECH: RJV) 22122-5 Amphetamine [Mass/vo lume] in Urine N NEGATIVE NEGATIVE March 23, 2023 9:48:00 AM UTC (TECH: RJV) 9428-4 Benzodiazepines [Mas s/volume] in Urine N NEGATIVE NEGATIVE March 23, 2023 9:48:00 AM UTC (TECH: RJV) 29226-7 Tricyclic antidepres sants [Mass/volume] in Urine N NEGATIVE NEGATIVE March 23, 2023 9:48:00 AM UTC (TECH: RJV) 3774-7 Methadone [Mass/volume] in Urine N NEGATIV E NEGATIVE March 23, 2023 9:48:00 AM UTC (TECH: RJV) 9426-8 Barbiturates [Mass/v olume] in Urine N NEGATIVE NEGATIVE March 23, 2023 9:48:00 AM UTC (TECH: RJV) 43754-9 Oxycodone [Mass/volume] in Urine N NEGATIV E NEGATIVE March 23, 2023 9:48:00 AM UTC (TECH: RJV) 3415-7 Buprenorphine [Mass/ volume] in Urine N NEGATIVE NEGATIVE March 23, 2023 9:48:00 AM UT (TECH: RJV) ORDER 2300: LACTIC ACID 3 HR REFLEX (LOINC: 68861-2) ORDER DATE: March 23, 2023 9:19:00 AM UT Specimen Source: Plasma PERFORMING LAB: [address] [id number] Result Comment: Final Result Date: March 23, 2023 11:45:00 AM UT (TECH: LT) LOINC TEST FLAG [place] [address]-2 Lactate [Moles/volume] in Plasma venous N 0.8 MMOLE/L 0.4 MMOLE/L - 2.0 MMOLE/L March 23, 2023 11:45:00 AM UT (TECH: LT) LABORATORY NARRATIVE RESULTS Information is not available RADIOLOGY RESULTS ORDER 1700: CHEST SINGLE VIE W/PORTABLE (LOINC: 81144-1) ORDER DATE: March 23, 2023 8:27:00 AM UT PATHOLOGY NARRATIVE RESULTS Information is not available MICROBIOLOGY RESULTS No Micro Labs/Results Exist for Patient BLOOD ADMIN RESULTS Information is not available TREATMENT PLAN DISCHARGE MEDICATIONS Status RXNORM Medication Dose Route Frequency Dates Comments U pdated By Patient discharge medication information is not available. PATIENT OPEN ORDERS Code System Description Frequency Occurrences Priority [place] [address]-0 [facility] Stat March 23, 2023 8:26:00 AM [facility] JOSE JACKSON [id number] on March 23, 2023 8:26:00 AM [facility] 600-7 INC Bacteria identified in Blood by Culture ONE TIME 0 Stat March 23, 2023 8:27:00 AM [facility] JOSE DO 5011 on March 23, 2023 8:27:00 AM [facility] 600-7 LOINC Bacteria identified in Blood by Culture ONE TIME 0 Stat March 23, 2023 8:27:00 AM [facility] 5011 on March 23, 2023 8:27:00 AM [facility] 11887-9 [facility] 0 Stat March 23, 2023 8:31:00 AM [facility] 5011 on March 23, 2023 8:31:00 AM [facility] 74654-2 [facility] Clinical sepsis symptoms present [ESRD] ONE TIME 0 Routine March 23, 2023 9:19:00 AM [facility] DARION JOHNSON on March 23, 2023 9:19:00 AM [facility] SCHEDULED PROCEDURES Code System Description Status Scheduled Date Upd ated By Patient scheduled procedure information is not available. MEDICATIONS HOME MEDICATIONS Status RXNORM Medication Dose Route Frequency Dates Comments R eported By Updated By Active 141874 amLODIPine Besylate Tablet 10 MG 10.0 MG PO DAILY Last Dose: [id number] on March 23, 2023 8:30:58 AM [facility] Active ASPIR-LOW 81.0 MG PO DAILY Last Dose: [id number] on March 23, 2023 8:30:59 AM [facility] Active 341116 atorvastatin calcium (LIPITOR) 40.0 MG PO DAILY Last Dose: [id number] on March 23, 2023 8:30:59 AM [facility] Active 454659 Carvedilol Tablet 6.25 MG 6.25 MG PO BID Last Dose: [id number] on March 23, 2023 8:30:59 AM [facility] Active 861726 Clopidogrel Bisulfate Tablet 75 MG 75.0 MG PO DAILY Last Dose: [id number] on March 23, 2023 8:31:00 AM [facility] Active 790801 Entecavir Tablet 0.5 MG 0.5 GM PO Q72H Last Dose: [id number] on March 23, 2023 8:31:00 AM [facility] Active 755762 Furosemide Tablet 20 MG 20.0 MG PO DAILY Last Dose: [id number] on March 23, 2023 8:31:00 AM [facility] Active 828415 Gabapentin Tablet 600 MG 600.0 MG PO TID Last Dose: [id number] on March 23, 2023 8:31:00 AM [facility] Active 897992 isosorbide mononitrate SR 24HR 60.0 MG PO DAILY Last Dose: [id number] on March 23, 2023 8:31:00 AM [facility] Active 255993 Levemir Solution 100 UNIT/ML 12.0 UNT SUBCUT BEDTIME Last Dose: [id number] on March 23, 2023 8:31:00 AM [facility] Active 002140 Nitroglycerin Tablet 0.4 MG 0.4 MG SUBLING [id number] Last Dose: Max 3 doses [id number] on March 23, 2023 8:31:00 AM [facility] Active 2866027 NovoLOG FlexPen Solution Pen-injector 100 UNIT/ML 5.0 UNT SUBCUT TIDWM Last Dose: [id number] on March 23, 2023 8:31:01 AM UTC DISCHARGE MEDICATIONS Status RXNORM Medication Dose Route Frequency Dates Comments Physic maia Updated By No Discharge Medication Info rmation Available INPATIENT MEDICATIONS Status RXNORM Medication Dose Route Frequency Rate Quantity Dates Comments Physician Updated By Discont inued aspirin childrens chewable 81 MG CHEW 81.0 MG BY MOUTH ONE TIME ONLY Start: [facility] 2022 9:18:0 0 AM UTC End: [facility] 2022 9:18:0 0 AM [facility] on March 23, 2023 9:17:00 AM UTC Discont inued [id number] sodium chloride MINI-BAG PLUS 0.9 % 100 ML MBP KEMI 100.0 ML INTRAV ENOUS ONE TIME ONLY Start: [facility] 2022 9:48:0 0 AM UTC End: [facility] 2022 9:48:0 0 AM [facility] on March 23, 2023 9:46:00 AM UTC Discont inued [id number] cefTRIAXone (ROCEPHIN) 2 GM SOLR 2.0 GM ONE TIME ONLY Start: [facility] 2022 9:48:0 0 AM UTC End: [facility] 2022 9:48:0 0 AM [facility] on March 23, 2023 9:46:00 AM UTC Discont inued [id number] cefepime (MAXIPIME) 1 GM SOLR 1.0 GM ONE TIME ONLY Start: [facility] 2022 9:48:0 0 AM UTC End: [facility] 2022 9:48:0 0 AM [facility] on March 23, 2023 9:47:00 AM UTC Discont inued [id number] hydrALAZINE (APRESOLINE ) 25 MG TABS 25.0 MG BY MOUTH ONE TIME ONLY Start: [facility] 2022 10:04: 00 AM UTC End: [facility] 2022 10:04: 00 AM [facility] on March 23, 2023 10:03:00 AM UTC Discont inued [id number] amLODIPine (NORVASC) 5 MG TABS 5.0 MG BY MOUTH ONE TIME ONLY [facility] 10:[facility] 00 AM [facility] 10[facility]04[facility] 00 [facility] on March 23, 2023 10:04:00 AM UTC Discont inued 120153 isosorbide dinitrate (ISORDIL) 20 MG TABS 20.0 MG BY MOUTH ONE TIME ONLY [facility] 10:10: 00 AM UTC [facility] 10:10: 00 AM [facility] on March 23, 2023 10:08:00 AM UTC Discont inued [id number] losartan potassium (COZAAR) 50 MG TABS 50.0 MG BY MOUTH ONE TIME ONLY Start: [facility] er 2022 10:10: 00 AM UTC [facility] 10[facility]10: 00 [facility] March [facility], 2023 10:08:00 AM UTC Discont inued [id number] LEVOFLOXACI N IN D5W 750 MG/150ML SOLN 750.0 MG INTRAV ENOUS ONE TIME ONLY Start: [facility] er 2022 10:30: 00 AM UTC End: [facility] 10:30: 00 AM [facility] ED on March 23, 2023 10:29:00 AM UTC Discont inued [id number] DUONEB 0.5-2.5 MG/3 ML SOLN 1.0 NEB INHALE D ONE TIME ONLY [facility] 12:40: 00 PM UTC [facility] 12:40: 00 PM [facility] on March 23, 2023 12:40:00 PM UTC Discont inued 907657 furosemide (LASIX) 40 MG TABS 40.0 MG BY MOUTH ONE TIME ONLY [facility] 12:46: 00 PM UTC [facility] 12:46: 00 PM [facility] on March 23, 2023 12:46:00 PM UT SOCIAL HISTORY SOCIAL HISTORY SNOMED-CT Social History Element Description Effective Dates Offered Cessation Comment UpdatedBy [id number] Historical Tobacco smoking status Former Smoker End: February 18, 2023 5:00:00 AM UT Not Applicable [id number] on March 21, 2023 3:04:25 PM UT [id number] Historical Tobacco smoking status Current Every Day Smoker Refused [id number] on February 01, 2023 3:49:56 PM UT SOCIAL HISTORY - Gender Sex: Male SOCIAL HISTORY - Sexual Behavior Sexual Orientation Gender Identity SNOMED-CT Description SNO MED -CT Description Activity Level No of Partners Partner Type UpdatedBy VITAL SIGNS PATIENT VITAL SIGNS This section displays the mo st recent value for each vital sign as of March 23, 2023 1:55:06 PM UT Loinc Code Vital Sign Activity Date Result Updated By 8310-5 Body temperature March 23 8:22:00 AM UTC 97.8 [degF] [id number] on March 23, 2023 8:27:15 AM UT 8462-4 Diastolic blood pressure March 23, 2023 12:45:00 PM UTC 74.0 mm[Hg] [id number] on March 23, 2023 12:51:55 PM UT 8867-4 Heart rate March 23 12:45:00 PM UTC 80 /min [id number] on March 23, 2023 12:51:[place] [address]-5 Oxygen saturation in Arterial blood by Pulse oximetry March 23, 2023 12:45:00 PM UTC 99.0 % [id number] on March 23, 2023 12:51:55 PM UT 9279-1 Respiratory rate March 23 12:45:00 PM UTC 17 /min [id number] on March 23, 2023 12:51:55 PM UT 8480-6 Systolic blood pressure March 23, 2023 12:45:00 PM UTC 139.0 mm[Hg] [id number] on March 23, 2023 12:51:55 PM UT PEDIATRIC GROWTH CHART - VITAL SIGNS This section displays Head C ircumference Percentile, Weight for Length Percentile and BMI Percentile Loinc Code Pediatric Measure Age (Months) Result Updat ed By HEALTH CONCERNS Problems Concern Status Health Concern problem infor mation not available. Smoking Status Status Years Used Consumed packs p er day Health Concern smoking histo ry information not available. Family History Concern Status Health Concern family histor y information not available. ENCOUNTERS ENCOUNTER INFORMATION Reason for Visit SHORTNESS OF BREATH Admission March 23, 2023 8:16:00 AM [facility] [id number] Discharge March 23, 2023 12:55:00 PM UT C ANOTHER SHORT-TERM [facility] ENCOUNTER DIAGNOSES Notes information is not bartolome ilable. Code System Diagnosis Onset Date Diagnosis information is not available. ABSTRACT DIAGNOSES Code System Diagnosis Updated By Abstract Diagnosis informati on is not available. CARE TEAM Care Medical Imaging Technologist Role JOSE ORLANDO Admitting PCP DECLINED Primary Care JOSE ORLANDO Referring JOSE ORLANDO Primary Attending CARE TEAM CARE rigging man Role on Team Status Start Date End Date Update d By DARION GARCIA DO Referring normal February 8:22:48 AM UT March 23, 2023 12:55:00 PM UT [id number] on March 23, 2023 8:22:48 AM [facility] DARION GARCIA DO Attending normal February 8:22:48 AM UT March 23, 2023 12:55:00 PM UTC [id number] on March 23, 2023 8:22:48 AM [facility] DARION GARCIA DO Admitting normal February 8:22:47 AM UTC March 23, 2023 12:55:00 PM UTC [id number] on March 23, 2023 8:22:48 AM UT DECLINED PCP PCP normal March 23, 2023 8:17:17 AM UTC March 23, 2023 12:55:00 PM UTC [id number] on March 23, 2023 8:22:48 AM [facility]
--- OUTSIDE RECORDS SUMMARY | 2023-04-06 10:20 | XMS_ITS | Continuity of Care Document ---
Author Name Unknown Address [address] [place] [phone] [facility] Phone Care Team Providers Care Developer Automatic Name Role Phone DAVION, NEETA E Unavailable Unavailable DAVION, NEETA E Primary Attending Unavailable DECLINED, PCP Primary Care Unavailable DAVION NEETA E Admitting Unavailable ALLERGIES AND ADVERSE REACTIONS ALLERGIES AND ADVERSE REACTIONS Code System Allergy Substance Adverse Reaction Date Reaction (Severity) Comment Status Reported By Updated By [id number] RXNorm PENICILLIN Rash (Moderate) active [id number] on April 06, 2023 4:35:56 AM UTC FAMILY HISTORY RELATION: Father Status: Cause of : Malignant neoplastic disease Age at : 60 SNOMED-CT Diagnosis Age At Onset [id number] Malignant neoplastic disease RELATION: Mother Status: Cause of : Congestive heart failure Age at : 58 SNOMED-CT Diagnosis Age At Onset [id number] Congestive heart failure RESULTS Patient: WANDER VANN Date of : [birth year] LABORATORY RESULTS ORDER 100: ARTERIAL BLOOD GA S (LOINC: 60877-4) ORDER DATE: April 06, 2023 4:35:00 AM UTC Specimen Source: Whole Blood PERFORMING LAB: [address] [id number] Result Comment: Final Result Date: April 06, 2023 5:14:00 AM UTC (TECH: TS1) LOINC TEST [place] [address]-5 Specimen source subject [Type] N ARTERIAL April 06, 2023 5:14:00 AM UTC (TECH: TS1) 72931-7 Arterial patency Wrist artery --pre arterial puncture N YES April 06, 2023 5:14:00 AM UTC (TECH: TS1) 60319-3 Body site N RIGHT RADIAL April 06, 2023 5:14:00 AM UTC (TECH: TS1) 2744-1 pH of Arterial blood N 7.400 7.35 - 7. 45 April 06, 2023 5:14:00 AM UTC (TECH: TS1) 2019-8 Carbon dioxide [Partial pressure] in Arterial blood N 44 mmHg 35 mmHg - 45 mmHg April 06, 2023 5:14:00 AM UTC (TECH: TS1) 2703-7 Oxygen [Partial pressure] in Arterial blood L 78.0 mmHg 80 mmHg - 100 mmHg April 06, 2023 5:14:00 AM UTC (TECH: TS1) 40456-8 Bicarbonate [Moles/volume] standard in Arterial blood H 26.5 mEq/L 21 mEq/L - 25 mEq/L April 06, 2023 5:14:00 AM UTC (TECH: TS1) 28687-8 Base excess standard in Arterial blood by calculation N 2.1 April 06, 2023 5:14:00 AM UTC (TECH: TS1) 2714-4 Fractional oxyhemoglobin in Arterial blood N 95 % April 06, 2023 5:14:00 AM UTC (TECH: TS1) 3150-0 Inhaled oxygen concentration N 60.0 % April 06, 2023 5:14:00 AM UTC (TECH: TS1) 09965-1 Oxygen gas flow Oxygen delivery system N BIPAP April 06, 2023 5:14:00 AM UTC (TECH: TS1) 47479-7 Room temperature N 37.0 Eric [facility] 2023 5:14:00 AM UTC (TECH: TS1) ORDER 200: CBC AUTO W DIFF ( LOINC: 63709-3) ORDER DATE: April 06, 2023 4:41:00 AM UTC Specimen Source: Whole Blood PERFORMING LAB: [address] [id number] Result Comment: Final Result Date: April 06, 2023 5:05:00 AM UTC (TECH: RJV) LOINC TEST FLAG RESULT REFERENCE RANGE UPDA YOAV BY 6690-2 Leukocytes [#/volume] in Blood by Automated count N 6.6 10^3/uL 4.5 10^3/uL - 11.5 10^3/uL April 06, 2023 5:05:00 AM UTC (TECH: RJV) 789-8 Erythrocytes [#/volume] in Blood by Automated count L 3.43 10^6/uL 4.25 10^6/uL - 5.57 10^6/uL April 06, 2023 5:05:00 AM UTC (TECH: NearWoo) 718-7 Hemoglobin [Mass/volume] in Blood L 9.8 g/dL 13.5 g/dL - 17.2 g/dL April 06, 2023 5:05:00 AM UTC (TECH: NearWoo) 70613-5 Hematocrit [Volume Fraction] of Blood L 29.7 % 42.0 % - 52.0 % April 06, 2023 5:05:00 AM UTC (TECH: NearWoo) 787-2 Erythrocyte mean corpuscular volume [Entitic volume] by Automated count N 86.6 fl 80 fl - 95 fl April 06, 2023 5:05:00 AM UTC (TECH: NearWoo) 41789-7 Erythrocyte mean corpuscular hemoglobin [Entitic mass] in Blood from Fetus by Automated count N 28.6 pg 27.0 pg - 34.0 pg April 06, 2023 5:05:00 AM UTC (TECH: NearWoo) 11026-9 Erythrocyte mean corpuscular hemoglobin concentration [Mass/volume] in Blood from Fetus by Automated count N 33.0 g/dL 32.0 g/dL - 36.0 g/dL April 06, 2023 5:05:00 AM UTC (TECH: NearWoo) 85805-3 Platelets [#/volume] in Blood N 171 10^3/uL 150 10^3/uL - 450 10^3/uL April 06, 2023 5:05:00 AM UTC (TECH: NearWoo) 94118-9 Erythrocyte distribution width [Ratio] N 13.3 % 12.3 % - 15.1 % April 06, 2023 5:05:00 AM UTC (TECH: NearWoo) 85893-5 Platelet mean volume [Entitic volume] in Blood by Automated count H 11.8 fl 7.4 fl - 10.4 fl April 06, 2023 5:05:00 AM UTC (TECH: NearWoo) 83808-9 Granulocytes/100 leukocytes in Blood by Automated count H 75.7 % 40 % - 75 % April 06, 2023 5:05:00 AM UTC (TECH: NearWoo) 736-9 Lymphocytes/100 leukocytes in Blood by Automated count N 17.9 % 15 % - 57 % April 06, 2023 5:05:00 AM UTC (TECH: RJV) 5905-5 Monocytes/100 leukocytes in Blood by Automated count N 5.8 % 4.0 % - 12.0 % April 06, 2023 5:05:00 AM UTC (TECH: RJV) 713-8 Eosinophils/100 leukocytes in Blood by Automated count N 0.2 % 0.0 % - 4.0 % April 06, 2023 5:05:00 AM UTC (TECH: RJV) 706-2 Basophils/100 leukocytes in Blood by Automated count N 0.2 % 0.0 % - 1.0 % April 06, 2023 5:05:00 AM UTC (TECH: RJV) 80956-4 Immature granulocytes [#/volume] in Blood N 0.2 % 0.0 % - 0.8 % April 06, 2023 5:05:00 AM UTC (TECH: RJV) 18682-7 Granulocytes [#/volume] in Blood by Automated count N 5.01 10^3/uL April 06, 2023 5:05:00 AM UTC (TECH: RJV) 731-0 Lymphocytes [#/volume] in Blood by Automated count N 1.18 10^3/uL April 06, 2023 5:05:00 AM UTC (TECH: RJV) 742-7 Monocytes [#/volume] in Blood by Automated count N 0.38 10^3/uL April 06, 2023 5:05:00 AM UTC (TECH: RJV) 711-2 Eosinophils [#/volume] in Blood by Automated count N 0.01 10^3/uL April 06, 2023 5:05:00 AM UTC (TECH: RJV) 704-7 Basophils [#/volume] in Blood by Automated count N 0.01 10^3/uL April 06, 2023 5:05:00 AM UTC (TECH: RJV) 18943-0 Immature granulocytes [#/volume] in Blood N 0.01 10^3/uL April 06, 2023 5:05:00 AM UTC (TECH: RJV) 97159-2 Manual differential performed [Presence] in Blood N NO April 06, 2023 5:05:00 AM UTC (TECH: RJV) ORDER 300: COMP METABOLIC PA LINDA (LOINC: 61989-6) ORDER DATE: April 06, 2023 4:41:00 AM UTC Specimen Source: Serum/Plasm a PERFORMING LAB: [address] [id number] Result Comment: Final Result Date: April 06, 2023 5:18:00 AM UT (TECH: RJV) LOINC TEST FLAG RESULT REFERENCE RANGE UPDA YOAV BY 2951-2 Sodium [Moles/volume ] in Serum or Plasma N 139 mmol/L 136 mmol/L - 145 mmol/L April 06, 2023 5:18:00 AM UT (TECH: EvergigV) 2823-3 Potassium [Moles/volume] in Serum or Plasma N 4.4 mmol/L 3.5 mmol/L - 5.1 mmol/L April 06, 2023 5:18:00 AM UT (TECH: RJV) 2075-0 Chloride [Moles/volu me] in Serum or Plasma N 101 mmol/L 98 mmol/L - 107 mmol/L April 06, 2023 5:18:00 AM UT (TECH: RJV) 8-9 Carbon dioxide, tota l [Moles/volume] in Serum or Plasma N 27 mmol/L 21 mmol/L - 32 mmol/L April 06, 2023 5:18:00 AM UT (TECH: EvergigV) 71750-3 Anion gap 3 in Serum or Plasma N 11.0 April 06, 2023 5:18:00 AM UT (TECH: RJV) 2345-7 Glucose [Mass/volume ] in Serum or Plasma H 237 mg/dL 70 mg/dL - 110 mg/dL April 06, 2023 5:18:00 AM UT (TECH: RJV) 3094-0 Urea nitrogen [Mass/volume] in Serum or Plasma H 84 mg/dL 7 mg/dL - 18 mg/dL April 06, 2023 5:18:00 AM UT (TECH: RJV) 2160-0 Creatinine [Mass/volume] in Serum or Plasma H 3.8 mg/dL 0.8 mg/dL - 1.3 mg/dL April 06, 2023 5:18:00 AM UT (TECH: RJV) 3097-3 Urea nitrogen/Creatinine [Mass Ratio] in Serum or Plasma H 22.1 Ratio 9 Ratio - 21 Ratio April 06, 2023 5:18:00 AM UT (Readyforce: NearWoo) 03197-4 Glomerular filtratio n rate/1.73 sq M.predicted by Creatinine-based formula (MDRD) L 18 mL/min >60 April 06, 2023 5:18:00 AM UT (TECH: NearWoo) 2885-2 Protein [Mass/volume ] in Serum or Plasma L 6.3 g/dL 6.4 g/dL - 8.2 g/dL April 06, 2023 5:18:00 AM UT (TECH: NearWoo) 1751-7 Albumin [Mass/volume ] in Serum or Plasma L 2.9 g/dL 3.4 g/dL - 5.0 g/dL April 06, 2023 5:18:00 AM [facility] (Readyforce: NearWoo) 95084-0 Calcium [Mass/volume ] in Serum or Plasma L 8.4 mg/dL 8.5 mg/dL - 10.1 mg/dL April 06, 2023 5:18:00 AM [facility] (Readyforce: NearWoo) 69828-6 Calcium [Mass/volume ] corrected for total protein in Serum or Plasma N 9.3 mg/dL 8.5 mg/dL - 10.1 mg/dL April 06, 2023 5:18:00 AM UT (Readyforce: NearWoo) 1975-2 Bilirubin.total [Mass/volume] in Serum or Plasma N 0.6 mg/dL 0.4 mg/dL - 1.5 mg/dL April 06, 2023 5:18:00 AM UT (TECH: NearWoo) 1920-8 Aspartate aminotransferase [Enzymatic activity/volume] in Serum or Plasma N 32 U/L 15 U/L - 37 U/L April 06, 2023 5:18:00 AM UT (TECH: NearWoo) 1742-6 Alanine aminotransferase [Enzymatic activity/volume] in Serum or Plasma N 25 U/L 12 U/L - 78 U/L April 06, 2023 5:18:00 AM UT (TECH: NearWoo) 6768-6 Alkaline phosphatase [Enzymatic activity/volume] in Serum or Plasma N 163 U/L 50 U/L - 170 U/L April 06, 2023 5:18:00 AM UTC (TECH: RJV) ORDER 400: TROPONIN I 1 HOUR PROTOCOL (LOINC: 28890-1) ORDER DATE: April 06, 2023 4:41:00 AM UTC Specimen Source: Plasma PERFORMING LAB: [address] [id number] Result Comment: Final Result Date: April 06, 2023 6:19:00 AM UTC (TECH: RJV) LOINC TEST FLAG [place] [address]-8 Troponin I.cardiac panel - Serum or Plasma by High sensitivity method HH 1446 ng/L 0 ng/L - 76 ng/L April 06 6:19:00 AM UTC (TECH: RJV) ORDER 500: TROPONIN QUANT (L OINC: 36759-7) ORDER DATE: April 06, 2023 4:41:00 AM UTC Specimen Source: Serum/Plasm a PERFORMING LAB: [address] [id number] Result Comment: Final Result Date: April 06, 2023 5:19:00 AM UTC (TECH: RJV) LOINC TEST [place] [address]-1 Troponin I.cardiac panel - Serum or Plasma by High sensitivity method HH 1409 ng/L 0 ng/L - 76 ng/L April 06 5:19:00 AM UT (TECH: RJV) ORDER 600: B-TYPE NATRIURETI C PEPTIDE BNP (LOINC: 21764-6) ORDER DATE: April 06, 2023 4:41:00 AM UTC Specimen Source: Whole Blood PERFORMING LAB: [address] [id number] Result Comment: Final Result Date: April 06, 2023 5:23:00 AM UTC (TECH: RJV) LOINC TEST FLAG [place] [address]-6 Natriuretic peptide B [Mass/volume] in Serum or Plasma H 1690.0 pg/mL 0.0 pg/mL - 100 pg/mL April 06, 2023 5:23:00 AM UT (TECH: RJV) ORDER 700: LACTIC ACID (LOIN C: 93942-6) ORDER DATE: April 06, 2023 4:41:00 AM UTC Specimen Source: Serum/Plasm a PERFORMING LAB: [address] [id number] Result Comment: Final Result Date: April 06, 2023 5:23:00 AM [facility] (TECH: RJV) [facility] TEST FLAG [place] [address]-7 Lactate [Mass/volume] in Serum or Plasma N 0.9 mmole/L 0.4 mmole/L - 2.0 mmole/L April 06, 2023 5:23:00 AM [facility] (TECH: RJV) LABORATORY NARRATIVE RESULTS Information is not available RADIOLOGY RESULTS Information is not available PATHOLOGY NARRATIVE RESULTS Information is not available MICROBIOLOGY RESULTS No Micro Labs/Results Exist for Patient BLOOD ADMIN RESULTS Information is not available TREATMENT PLAN DISCHARGE MEDICATIONS Status RXNORM Medication Dose Route Frequency Dates Comments U pdated By Patient discharge medication information is not available. PATIENT OPEN ORDERS Code System Description Frequency Occurrences Priority [place] [address] [facility] EKG study ONE TIME 0 Stat April 06, 2023 5:34:00 AM [facility] DAVION Castillo MD [id number] on April 06, 2023 5:34:00 AM [facility] 82496-1 [facility] Chest X-ray AP portable single view ONE TIME 0 Stat April 06, 2023 7:22:00 AM [facility] DAVION Castillo MD [id number] on April 06, 2023 7:36:00 AM [facility] 45149-6 [facility] EKG study ONE TIME 0 Stat April 06, 2023 7:28:00 AM [facility] DAVION Castillo MD [id number] on April 06, 2023 7:28:00 AM [facility] SCHEDULED PROCEDURES Code System Description Status Scheduled Date Upd ated By Patient scheduled procedure information is not available. MEDICATIONS HOME MEDICATIONS Status RXNORM Medication Dose Route Frequency Dates Comments R eported By Updated By Active [id number] Albuterol Sulfate HFA Inhalation Aerosol Solution 108 (90 Base) MCG/ACT 2.0 PUF INHALED Q4HPRN Last Dose: [id number] on April 06, 2023 4:35:56 AM [facility] Active 807807 amLODIPine Besylate Tablet 10 MG 10.0 MG PO DAILY Last Dose: [id number] on April 06, 2023 4:35:56 AM [facility] Active ASPIR-LOW 81.0 MG PO DAILY Last Dose: [id number] on April 06, 2023 4:35:56 AM [facility] Active 998966 atorvastatin calcium (LIPITOR) 40.0 MG PO DAILY Last Dose: [id number] on April 06, 2023 4:35:57 AM [facility] Active 056811 Carvedilol Tablet 6.25 MG 6.25 MG PO BID Last Dose: [id number] on April 06, 2023 4:35:57 AM [facility] Active 182175 Clopidogrel Bisulfate Tablet 75 MG 75.0 MG PO DAILY Last Dose: [id number] on April 06, 2023 4:35:57 AM [facility] Active 140063 Entecavir Tablet 0.5 MG 0.5 GM PO Q72H Last Dose: [id number] on April 06, 2023 4:35:57 AM [facility] Active 599334 Furosemide Tablet 40 MG 1.0 TAB PO DAILY Last Dose: [id number] on April 06, 2023 4:35:57 AM [facility] Active 276978 Gabapentin Tablet 600 MG 600.0 MG PO TID Last Dose: [id number] on April 06, 2023 4:35:57 AM [facility] Active 789030 isosorbide mononitrate SR 24HR 60.0 MG PO DAILY Last Dose: [id number] on April 06, 2023 4:35:57 AM [facility] Active 703274 Levemir Solution 100 UNIT/ML 12.0 UNT SUBCUT BEDTIME Last Dose: [id number] on April 06, 2023 4:35:57 AM [facility] Active 902665 Losartan Potassium Tablet 50 MG 1.0 TAB PO DAILY Last Dose: [id number] on April 06, 2023 4:35:57 AM [facility] Active 010209 Nitroglycerin Tablet 0.4 MG 0.4 MG SUBLING [id number] Last Dose: Max 3 doses [id number] on April 06, 2023 4:35:58 AM [facility] Active 7422987 NovoLOG FlexPen Solution Pen-injector 100 UNIT/ML 5.0 UNT SUBCUT TIDWM Last Dose: [id number] on April 06, 2023 4:35:58 AM [facility] DISCHARGE MEDICATIONS Status RXNORM Medication Dose Route Frequency Dates Comments Physic maia Updated By No Discharge Medication Info rmation Available INPATIENT MEDICATIONS Status RXNORM Medication Dose Route Frequency Rate Quantity Dates Comments Physician Updated [facility] 042790 nitroglycer in oint (NITRO-BID) 2 % OINT 1.0 IN TOPICA L ONE TIME ONLY Start: 2023 4:58:0 0 AM UTC End: 2023 4:58:0 0 AM UTC DAVION Castillo MD INTERF[facility] ED on April 06, 2023 4:56:00 AM UTC Discont inued 8779570 HEPARIN DRIP 52931 UNIT/ 1/2NS SOLN 20628 .0 UNT INTRAV ENOUS ONE TIME ONLY Start: 2023 7:47:0 0 AM UTC End: 2023 7:47:0 0 AM UTC DAVION Castillo MD [facility] ED on April 06, 2023 7:46:00 AM UTC Discont inued 3654758 heparin sodium (porcine) 5000 UNIT/ML SOLN 5000. 0 UNT SUBCUT ANEOUS ONE TIME ONLY Start: 2023 7:57:0 0 AM UTC End: 2023 7:57:0 0 AM UTC DAVION Castillo MD [facility] ED on April 06, 2023 7:55:00 AM UTC SOCIAL HISTORY SOCIAL HISTORY SNOMED-CT Social History Element Description Effective Dates Offered Cessation Comment UpdatedBy [id number] Historical Tobacco smoking status Former Smoker [id number] on April 02, 2023 9:54:08 AM UTC [id number] Historical Tobacco smoking status Current Every Day Smoker Refused [id number] on February 01, 2023 3:49:56 PM UTC SOCIAL HISTORY - Gender Sex: Male SOCIAL HISTORY - Sexual Behavior Sexual Orientation Gender Identity SNOMED-CT Description SNO MED -CT Description Activity Level No of Partners Partner Type UpdatedBy VITAL SIGNS PATIENT VITAL SIGNS This section displays the mo st recent value for each vital sign as of April 06, 2023 9:57:05 AM UT Loinc Code Vital Sign Activity Date Result Updated By 8310-5 Body temperature April 06, 2023 4:29:00 AM UTC 98.1 [degF] [id number] on April 06, 2023 4:31:59 AM UTC 8462-4 Diastolic blood pressure April 06, 2023 5:00:00 AM UTC 78.0 mm[Hg] [id number] on April 06, 2023 7:17:35 AM UTC 8867-4 Heart rate April 06, 2023 8:00:00 AM UTC 62 /min [id number] on April 06, 2023 8:28:41 AM [facility] 54818-4 Oxygen saturation in Arterial blood by Pulse oximetry April 06, 2023 8:00:00 AM UTC 100.0 % [id number] on April 06, 2023 8:28:41 AM [facility] 9279-1 Respiratory rate April 06, 2023 4:29:00 AM UTC 95 /min [id number] on April 06, 2023 4:31:59 AM [facility] 8480-6 Systolic blood pressure April 06, 2023 5:00:00 AM UTC 141.0 mm[Hg] [id number] on April 06, 2023 7:17:35 AM [facility] PEDIATRIC GROWTH CHART - VITAL SIGNS This [...] available. ENCOUNTERS ENCOUNTER INFORMATION Reason for Visit DIFFICULTY BREATHING Admission April 06, 2023 4:25:00 AM [place] B [address] [address] Discharge April 06, 2023 8:57:00 AM [facility] ENCOUNTER DIAGNOSES Notes information is not bartolome ilable. Code System Diagnosis Onset Date Diagnosis information is not available. ABSTRACT DIAGNOSES Code System Diagnosis Updated By Abstract Diagnosis informati on is not available. CARE TEAM Care Developer Automatic Role NEETA RICARDO Referring NEETA RICARDO Primary Attending PCP DECLINED Primary Care NEETA RICARDO Admitting CARE TEAM CARE rod placer Role on Team Status Start Date End Date Update d By DAVION Castillo MD Referring normal April 06, 2023 4:49:31 AM [facility] April 06, 2023 8:57:00 AM [facility] [id number] on April 06, 2023 4:49:31 AM [facility] DAVION Castillo MD Attending normal April 06, 2023 4:49:31 AM [facility] April 06, 2023 8:57:00 AM [facility] [id number] on April 06, 2023 4:49:31 AM [facility] DAVION Castillo MD Admitting normal April 06, 2023 4:49:31 AM [place] April 06, 2023 8:57:00 AM [facility] [id number] on April 06, 2023 4:49:31 AM [place] DECLINED PCP PCP normal April 06, 2023 4:25:52 AM [place] April 06, 2023 8:57:00 AM [facility] [id number] on April 06, 2023 4:49:31 AM [facility]
--- OUTSIDE RECORDS SUMMARY | 2023-04-06 10:20 | XMS_ITS | Continuity of Care Document ---
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 Phone TIAN ARMENDARIZ Admitting DECLINED, PCP Primary Care Unavailable TIAN ARMENDARIZ Unavailable TIAN ARMENDARIZ Primary Attending ALLERGIES AND ADVERSE REACTIONS ALLERGIES AND ADVERSE REACTIONS Code System Allergy Substance Adverse Reaction Date Reaction (Severity) Comment Status Reported By Updated By [id number] RXNorm PENICILLIN Rash (Moderate) active [id number] on February 03, 2023 8:20:15 AM UT FAMILY HISTORY RELATION: Father Status: Cause of : Malignant neoplastic disease Age at : 60 SNOMED-CT Diagnosis Age At Onset [id number] Malignant neoplastic disease RELATION: Mother Status: Cause of : Congestive heart failure Age at : 58 SNOMED-CT Diagnosis Age At Onset [id number] Congestive heart failure RESULTS Patient: WANDER VANN Date of : May [birth year] LABORATORY RESULTS ORDER 200: ARTERIAL BLOOD GA S (LOINC: 70567-7) ORDER DATE: February 03, 2023 8:17:00 AM UTC Specimen Source: Whole Blood PERFORMING LAB: [address] [id number] Result Comment: Final Result Date: February 03, 2023 9:17:00 AM UTC (TECH: TS1) LOINC TEST FLAG [place] [address]-7 Specimen source subject [Type] N ARTERIAL February 03, 2023 9:17:00 AM UTC (TECH: TS1) 87370-3 Arterial patency Wrist artery --pre arterial puncture N YES February 03, 2023 9:17:00 AM UTC (TECH: TS1) 42136-0 Body site N RIGHT RADIAL Novembe r 2022 9:17:00 AM UTC (TECH: TS1) 2744-1 pH of Arterial blood LL 7.260 7.35 - 7. 45 February 03, 2023 9:17:00 AM UTC (TECH: TS1) 2019-8 Carbon dioxide [Partial pressure] in Arterial blood H 57 mmHg 35 mmHg - 45 mmHg February 03, 2023 9:17:00 AM UTC (TECH: TS1) 2703-7 Oxygen [Partial pressure] in Arterial blood L 67.0 mmHg 80 mmHg - 100 mmHg February 03, 2023 9:17:00 AM UTC (TECH: TS1) 59149-7 Bicarbonate [Moles/volume] standard in Arterial blood N 23.0 mEq/L 21 mEq/L - 25 mEq/L February 03, 2023 9:17:00 AM UTC (TECH: TS1) 85422-5 Base excess standard in Arterial blood by calculation N -2.3 February 03, 2023 9:17:00 AM UTC (TECH: TS1) 2714-4 Fractional oxyhemoglobin in Arterial blood N 90 % February 03, 2023 9:17:00 AM UTC (TECH: TS1) 3150-0 Inhaled oxygen concentration N 70.0 % February 03, 2023 9:17:00 AM UTC (TECH: TS1) 89783-8 Oxygen gas flow Oxygen delivery system N BIPAP February 03, 2023 9:17:00 AM UTC (TECH: TS1) 92249-0 Room temperature N 37.0 Nov [facility] 2022 9:17:00 AM UTC (TECH: TS1) ORDER 300: CBC AUTO W DIFF ( LOINC: 45316-0) ORDER DATE: February 03, 2023 8:17:00 AM UTC Specimen Source: Whole Blood PERFORMING LAB: [address] [id number] Result Comment: Final Result Date: February 03, 2023 8:28:00 AM UTC (TECH: RJV) LOINC TEST FLAG RESULT REFERENCE RANGE UPDA YOAV BY 6690-2 Leukocytes [#/volume] in Blood by Automated count H 21.9 10^3/uL 4.5 10^3/uL - 11.5 10^3/uL February 03, 2023 8:28:00 AM UTC (TECH: RJV) 789-8 Erythrocytes [#/volume] in Blood by Automated count N 4.78 10^6/uL 4.25 10^6/uL - 5.57 10^6/uL February 03, 2023 8:28:00 AM UTC (TECH: DramaFever) 718-7 Hemoglobin [Mass/volume] in Blood N 13.7 g/dL 13.5 g/dL - 17.2 g/dL February 03, 2023 8:28:00 AM UTC (TECH: DramaFever) 15569-6 Hematocrit [Volume Fraction] of Blood N 42.9 % 42.0 % - 52.0 % February 03, 2023 8:28:00 AM UTC (TECH: DramaFever) 787-2 Erythrocyte mean corpuscular volume [Entitic volume] by Automated count N 89.7 fl 80 fl - 95 fl February 03, 2023 8:28:00 AM UTC (TECH: DramaFever) 58897-7 Erythrocyte mean corpuscular hemoglobin [Entitic mass] in Blood from Fetus by Automated count N 28.7 pg 27.0 pg - 34.0 pg February 03, 2023 8:28:00 AM UTC (TECH: DramaFever) 91862-9 Erythrocyte mean corpuscular hemoglobin concentration [Mass/volume] in Blood from Fetus by Automated count L 31.9 g/dL 32.0 g/dL - 36.0 g/dL February 03, 2023 8:28:00 AM UTC (TECH: DramaFever) 32061-6 Platelets [#/volume] in Blood N 333 10^3/uL 150 10^3/uL - 450 10^3/uL February 03, 2023 8:28:00 AM UTC (TECH: DramaFever) 59337-1 Erythrocyte distribution width [Ratio] N 14.2 % 12.3 % - 15.1 % February 03, 2023 8:28:00 AM UTC (TECH: DramaFever) 78397-3 Platelet mean volume [Entitic volume] in Blood by Automated count H 11.4 fl 7.4 fl - 10.4 fl February 03, 2023 8:28:00 AM UTC (TECH: DramaFever) 45952-9 Granulocytes/100 leukocytes in Blood by Automated count H 83.0 % 40 % - 75 % February 03, 2023 8:28:00 AM UTC (TECH: RJV) 736-9 Lymphocytes/100 leukocytes in Blood by Automated count L 11.3 % 15 % - 57 % February 03, 2023 8:28:00 AM UTC (TECH: RJV) 5905-5 Monocytes/100 leukocytes in Blood by Automated count N 5.2 % 4.0 % - 12.0 % February 03, 2023 8:28:00 AM UTC (TECH: RJV) 713-8 Eosinophils/100 leukocytes in Blood by Automated count N 0.0 % 0.0 % - 4.0 % February 03, 2023 8:28:00 AM UTC (TECH: RJV) 706-2 Basophils/100 leukocytes in Blood by Automated count N 0.0 % 0.0 % - 1.0 % February 03, 2023 8:28:00 AM UTC (TECH: RJV) 06710-4 Immature granulocytes [#/volume] in Blood N 0.5 % 0.0 % - 0.8 % February 03, 2023 8:28:00 AM UTC (TECH: RJV) 94058-3 Granulocytes [#/volume] in Blood by Automated count N 18.14 10^3/uL February 03, 2023 8:28:00 AM UTC (TECH: RJV) 731-0 Lymphocytes [#/volume] in Blood by Automated count N 2.48 10^3/uL February 03, 2023 8:28:00 AM UTC (TECH: RJV) 742-7 Monocytes [#/volume] in Blood by Automated count N 1.13 10^3/uL February 03, 2023 8:28:00 AM UTC (TECH: RJV) 711-2 Eosinophils [#/volume] in Blood by Automated count N 0.00 10^3/uL February 03, 2023 8:28:00 AM UTC (TECH: RJV) 704-7 Basophils [#/volume] in Blood by Automated count N 0.01 10^3/uL February 03, 2023 8:28:00 AM UTC (TECH: RJV) 57972-7 Immature granulocytes [#/volume] in Blood N 0.12 10^3/uL February 03, 2023 8:28:00 AM UTC (TECH: RJV) 50800-0 Manual differential performed [Presence] in Blood N NO February 03, 2023 8:28:00 AM UT (TECH: DramaFever) ORDER 400: COMP METABOLIC PA LINDA (LOINC: 92620-2) ORDER DATE: February 03, 2023 8:17:00 AM UT Specimen Source: Serum/Plasm a PERFORMING LAB: [address] [id number] Result Comment: Final Result Date: February 03, 2023 8:49:00 AM UT (TECH: DramaFever) LOINC TEST FLAG RESULT REFERENCE RANGE UPDA YOAV BY 2951-2 Sodium [Moles/volume ] in Serum or Plasma N 139 mmol/L 136 mmol/L - 145 mmol/L February 03, 2023 8:49:00 AM UT (TECH: DramaFever) 2823-3 Potassium [Moles/volume] in Serum or Plasma H 5.3 mmol/L 3.5 mmol/L - 5.1 mmol/L February 03, 2023 8:49:00 AM UT (TECH: DramaFever) 2075-0 Chloride [Moles/volu me] in Serum or Plasma N 102 mmol/L 98 mmol/L - 107 mmol/L February 03, 2023 8:49:00 AM UT (TECH: DramaFever) 2027-9 Carbon dioxide, tota l [Moles/volume] in Serum or Plasma N 26 mmol/L 21 mmol/L - 32 mmol/L February 03, 2023 8:49:00 AM UT (TECH: DramaFever) 27602-5 Anion gap 3 in Serum or Plasma N 11.0 February 03, 2023 8:49:00 AM UT (TECH: beSUCCESSV) 2345-7 Glucose [Mass/volume ] in Serum or Plasma H 236 mg/dL 70 mg/dL - 110 mg/dL February 03, 2023 8:49:00 AM UT (TECH: DramaFever) 3094-0 Urea nitrogen [Mass/volume] in Serum or Plasma H 72 mg/dL 7 mg/dL - 18 mg/dL February 03, 2023 8:49:00 AM UT (TECH: beSUCCESSV) 2160-0 Creatinine [Mass/volume] in Serum or Plasma H 3.8 mg/dL 0.8 mg/dL - 1.3 mg/dL February 03, 2023 8:49:00 AM UTC ([employer]: DramaFever) 3097-3 Urea nitrogen/Creatinine [Mass Ratio] in Serum or Plasma N 18.9 Ratio 9 Ratio - 21 Ratio February 03, 2023 8:49:00 AM [facility] ([employer]: DramaFever) 21106-0 Glomerular filtratio n rate/1.73 sq M.predicted by Creatinine-based formula (MDRD) L 18 mL/min >60 February 03, 2023 8:49:00 AM [facility] (TECH: DramaFever) 2885-2 Protein [Mass/volume ] in Serum or Plasma N 7.5 g/dL 6.4 g/dL - 8.2 g/dL February 03, 2023 8:49:00 AM [facility] ([employer]: DramaFever) 1751-7 Albumin [Mass/volume ] in Serum or Plasma L 2.9 g/dL 3.4 g/dL - 5.0 g/dL February 03, 2023 8:49:00 AM [facility] ([employer]: DramaFever) 52173-8 Calcium [Mass/volume ] in Serum or Plasma N 8.6 mg/dL 8.5 mg/dL - 10.1 mg/dL February 03, 2023 8:49:00 AM [facility] ([employer]: DramaFever) 99818-5 Calcium [Mass/volume ] corrected for total protein in Serum or Plasma N 9.5 mg/dL 8.5 mg/dL - 10.1 mg/dL February 03, 2023 8:49:00 AM [facility] ([employer]: DramaFever) 1975-2 Bilirubin.total [Mass/volume] in Serum or Plasma N 0.4 mg/dL 0.4 mg/dL - 1.5 mg/dL February 03, 2023 8:49:00 AM [facility] (TECH: DramaFever) 1920-8 Aspartate aminotransferase [Enzymatic activity/volume] in Serum or Plasma H 38 U/L 15 U/L - 37 U/L February 03, 2023 8:49:00 AM [facility] ([employer]: Drama[employer]ever) 1742-6 Alanine aminotransferase [Enzymatic activity/volume] in Serum or Plasma N 17 U/L 12 U/L - 78 U/L February 03, 2023 8:49:00 AM [facility] (TECH: DramaFever) 6768-6 Alkaline phosphatase [Enzymatic activity/volume] in Serum or Plasma N 155 U/L 50 U/L - 170 U/L February 03, 2023 8:49:00 AM UTC (TECH: RJV) ORDER 700: LACTIC ACID (LOIN C: 75914-8) ORDER DATE: February 03, 2023 8:17:00 AM UTC Specimen Source: Serum/Plasm a PERFORMING LAB: [address] [id number] Result Comment: Final Result Date: February 03, 2023 8:40:00 AM UTC (TECH: RJV) LOINC TEST FLAG [place] [address]-4 Lactate [Mass/volume] in Serum or Plasma H 2.4 mmole/L 0.4 mmole/L - 2.0 mmole/L February 03, 2023 8:40:00 AM UTC (TECH: RJV) ORDER 800: PT PROTHROMBIN TI ME W INR (LOINC: 87463-0) ORDER DATE: February 03, 2023 8:17:00 AM UTC Specimen Source: Plasma PERFORMING LAB: [address] [id number] Result Comment: Final Result Date: February 03, 2023 8:35:00 AM UTC (TECH: RJV) LOINC TEST [place] [address]-9 INR in Platelet poor plasma or blood by Coagulation assay N 10.2 seconds 9.3 seconds - 11.4 seconds February 03, 2023 8:35:00 AM UTC (TECH: RJV) 6301-6 INR in Platelet poor plasma by Coagulation assay N 0.96 0.9 - 1.1 February 03, 2023 8:35:00 AM UTC (TECH: RJV) ORDER 900: PTT PARTIAL THROM B TIME (LOINC: 20312-9) ORDER DATE: February 03, 2023 8:17:00 AM UTC Specimen Source: Plasma PERFORMING LAB: [address] [id number] Result Comment: Final Result Date: February 03, 2023 8:35:00 AM UTC (TECH: RJV) LOINC TEST FLAG [place] [address]-6 Activated partial thromboplastin time (aPTT) in Platelet poor plasma by Coagulation assay L 21.9 seconds 24.5 seconds - 32.8 seconds February 03, 2023 8:35:00 AM UTC (TECH: RJV) ORDER 1000: PROCALCITONIN (L OINC: 10588-4) ORDER DATE: February 03, 2023 8:17:00 AM UTC Specimen Source: Serum/Plasm a PERFORMING LAB: [address] [id number] Result Comment: Final Result Date: February 03, 2023 9:41:00 AM UTC (TECH: RJV) LOINC TEST [place] [address]-2 Procalcitonin [Mass/volume] in Serum or Plasma N 0.29 ng/ml 0.00 ng/ml - 0.5 ng/ml February 03, 2023 9:41:00 AM UTC (TECH: RJV) ORDER 1100: UA AND MICRO/CUL T IF INDICATED (LOINC: 02762-8) ORDER DATE: February 03, 2023 8:17:00 AM UTC Specimen Source: URINE PERFORMING LAB: [address] [id number] Result Comment: Final Result Date: February 03, 2023 9:06:00 AM UTC (TECH: beSUCCESSV) LOINC TEST FLAG RESULT REFERENCE RANGE UPDA YOAV BY 5778-6 Color of Urine N YELLOW YELLOW Novem 2022 9:04:00 AM UTC (TECH: RJV) 5767-9 Appearance of Urine N CLEAR CLEAR February 03, 2023 9:04:00 AM UTC (TECH: RJV) 5792-7 Glucose [Mass/volume] in Urine by Test strip N 50 NORMAL February 03, 2023 9:04:00 AM UTC (TECH: DramaFever) 86515-1 Bilirubin.total [Mass/volume] in Urine by Automated test strip N NEGATIVE NEGATIVE February 03, 2023 9:04:00 AM UTC (TECH: RJV) 5797-6 Ketones [Mass/volume] in Urine by Test strip N NEGATIVE NEGATIVE February 03, 2023 9:04:00 AM UTC (TECH: RJV) 2965-2 Specific gravity of Urine N 1.025 1.005 - 1.035 February 03, 2023 9:04:00 AM UTC (TECH: RJV) 58958-4 Erythrocytes [#/volume] in Urine by Automated test strip N 150 (3+) /mcL NEGATIVE February 03, 2023 9:04:00 AM UTC (TECH: DramaFever) 31516-2 pH of Urine by Automated test strip N 5.00 5.0 - 7.5 February 03, 2023 9:04:00 AM UTC (TECH: DramaFever) 45322-2 Protein [Presence] in Urine by Test strip N 100 (2+) mg/dL NEGATIVE February 03, 2023 9:04:00 AM UTC (TECH: DramaFever) 45019-2 Urobilinogen [Mass/volume] in Urine by Automated test strip N NORM NORMAL February 03, 2023 9:04:00 AM UTC (TECH: DramaFever) 87664-6 Nitrate [Presence] in Urine N NEGATIVE NEGATIVE February 03, 2023 9:04:00 AM UTC (TECH: DramaFever) 21700-5 Leukocytes [#/volume] in Urine by Test strip N NEGATIVE NEGATIVE February 03, 2023 9:04:00 AM UTC (TECH: DramaFever) 36836-7 Other elements in Urine sediment N NOT REQUIRED February 03, 2023 9:04:00 AM UTC (TECH: DramaFever) 40276-1 Microscopic observation [Identifier] in Urine sediment by Light microscopy N YES February 03, 2023 9:04:00 AM UTC (TECH: DramaFever) 17745-0 Erythrocytes [#/area] in Urine sediment by Microscopy high power field N 5-10 0-3 February 03, 2023 9:04:00 AM UTC (TECH: DramaFever) 5821-4 Leukocytes [#/area] in Urine sediment by Microscopy high power field N 1-5 NONE SEEN February 03, 2023 9:06:00 AM UTC (TECH: DramaFever) 97067-0 Epithelial cells.squamous [#/area] in Urine sediment by Microscopy high power field N RARE NONE SEEN February 03, 2023 9:04:00 AM UTC (TECH: DramaFever) 5769-5 Bacteria [#/area] in Urine sediment by Microscopy high power field N NONE SEEN NONE SEEN February 03, 2023 9:04:00 AM UTC (TECH: DramaFever) 96303-9 Fine Granular Casts [Presence] in Urine sediment by Light microscopy N RARE NONE SEEN February 03, 2023 9:04:00 AM UTC (TECH: DramaFever) 8246-1 Amorphous sediment [Presence] in Urine sediment by Light microscopy TRACE NONE SEEN February 03, 2023 9:04:00 AM UT (TECH: RJV) ORDER 1500: B-TYPE NATRIURET IC PEPTIDE BNP (LOINC: 95351-6) ORDER DATE: February 03, 2023 8:20:00 AM UTC Specimen Source: Whole Blood PERFORMING LAB: [address] [id number] Result Comment: Final Result Date: February 03, 2023 8:48:00 AM UTC (TECH: RJV) LOINC TEST FLAG [place] [address]-2 Natriuretic peptide B [Mass/volume] in Serum or Plasma H 1590.0 pg/mL 0.0 pg/mL - 100 pg/mL February 03, 2023 8:48:00 AM UT (TECH: RJV) ORDER 1600: TROPONIN QUANT ( LOINC: 25420-4) ORDER DATE: February 03, 2023 8:32:00 AM UTC Specimen Source: Plasma PERFORMING LAB: [address] [id number] Result Comment: Final Result Date: February 03, 2023 8:50:00 AM UT (TECH: RJV) LOINC TEST FLAG [place] [address]-1 Troponin I.cardiac p reed - Serum or Plasma by High sensitivity method HH 906 ng/L 0 ng/L - 76 ng/L February 03, 2023 8:50:00 AM UT (TECH: RJV) LABORATORY NARRATIVE RESULTS Information is [...] Priority [place] [address]-0 [facility] Biphasic positive airway pressure (BIPAP) activ ONE TIME 0 Stat February 03, 2023 8:13:00 AM UT KALA Dao MD [id number] on February 03, 2023 8:13:00 AM [facility] 600-7 [facility] Bacteria identified in Blood by Culture ONE TIME 0 Stat February 03, 2023 8:17:00 AM [facility] KALA Dao MD 473 on February 03, 2023 8:17:00 AM [facility] 600-7 [facility] Bacteria identified in Blood by Culture ONE TIME 0 Stat February 03, 2023 8:17:00 AM [facility] KALA Dao MD 473 on February 03, 2023 8:17:00 AM [facility] 03664-9 [facility] EKG study ONE TIME 0 Stat February 03, 2023 8:17:00 AM [facility] KALA Dao MD 473 on February 03, 2023 8:17:00 AM [facility] 25769-9 [facility] Clinical sepsis symptoms present [ESRD] ONE TIME 0 Stat February 03, 2023 8:17:00 AM [facility] KALA Dao MD 473 on February 03, 2023 8:17:00 AM [facility] 34040-3 [facility] Chest X-ray AP portable single view ONE TIME 0 Stat February 03, 2023 8:17:00 AM [facility] KALA Dao MD [id number] on February 03, 2023 8:59:00 AM [facility] 12371-1 [facility] Clinical sepsis symptoms present [ESRD] ONE TIME 0 Routine February 03, 2023 8:40:00 AM [facility] KALA Dao MD [id number] on February 03, 2023 8:40:00 AM [facility] SCHEDULED PROCEDURES Code System Description Status Scheduled Date Upd ated By Patient scheduled procedure information is not available. MEDICATIONS HOME MEDICATIONS Status RXNORM Medication Dose Route Frequency Dates Comments R eported By Updated By Active amLODIPine (NORVASC) 10.0 MG PO DAILY Last Dose: [id number] on February 03, 2023 8:20:16 AM [facility] Active Aspirin 81 Tablet Chewable 81 MG 1.0 TAB PO DAILY Last Dose: [id number] on February 03, 2023 8:20:18 AM [facility] Active 999200 atorvastatin calcium (LIPITOR) 40.0 MG PO DAILY Last Dose: [id number] on February 03, 2023 8:20:18 AM [facility] Active 101968 Carvedilol Tablet 6.25 MG 1.0 TAB PO BID Last Dose: [id number] on February 03, 2023 8:20:18 AM [facility] Active 117151 Clopidogrel Bisulfate Tablet 75 MG 1.0 TAB PO DAILY Last Dose: [id number] on February 03, 2023 8:20:20 AM [facility] Active 025368 Entecavir Tablet 1 MG 0.5 MG PO DAILY Last Dose: [id number] on February 03, 2023 8:20:20 AM UT Active gabapentin (NEURONTIN) 600.0 MG PO TID Last Dose: [id number] on February 03, 2023 8:20:21 AM UT Active hydrochlorothi azide (HCTZ) 25.0 MG PO DAILY Last Dose: [id number] on February 03, 2023 8:20:21 AM UT Active losartan potassium (COZAAR) 50.0 MG PO BID Last Dose: [id number] on February 03, 2023 8:20:21 AM UT Active 437330 Nitroglycerin Tablet 0.4 MG 1.0 TAB SUBLING [id number] Last Dose: Max 3 doses [id number] on February 03, 2023 8:20:22 AM [facility] Active 2589663 NovoLOG FlexPen Solution Pen-injector 100 UNIT/ML 20.0 UNT SUBCUT TID Last Dose: [id number] on February 03, 2023 8:20:22 AM UT DISCHARGE MEDICATIONS Status RXNORM Medication Dose Route Frequency Dates Comments Physic maia Updated By No Discharge Medication Info rmation Available INPATIENT MEDICATIONS Status RXNORM Medication Dose Route Frequency Rate Quantity Dates Comments Physician Updated By Discont inued 6103252 LORazepam (ATIVAN) 2 MG/ML SOLN 2.0 MG IV PUSH ONE TIME ONLY Start: 2022 8:25:0 0 AM UT End: 2022 8:25:0 0 AM UT KALA Dao MD INTERFAC ED on February 03, 2023 8:24:00 AM UT Discont inued 0536439 furosemide 40mg vial (LASIX) 10 MG/ML SOLN 40.0 MG IV PUSH ONE TIME ONLY Start: 2022 8:43:0 0 AM UTC End: 2022 8:43:0 0 AM UTC KALA Dao MD INTERFAC ED on February 03, 2023 8:41:00 AM UT Discont inued 3974660 sodium chloride MINI-BAG PLUS 0.9 % 100 ML MBP KEMI 100.0 ML INTRAV ENOUS ONE TIME ONLY Start: 2022 8:47:0 0 AM UTC End: 2022 8:47:0 0 AM UT KALA Dao MD INTERFAC ED on February 03, 2023 8:45:00 AM UTC Discont inued 3770232 cefTRIAXone (ROCEPHIN) 1 GM SOLR 1.0 GM ONE TIME ONLY Start: 2022 8:47:0 0 AM UTC End: 2022 8:47:0 0 AM UTC KALA Dao MD INTERFAC ED on February 03, 2023 8:46:00 AM UTC Discont inued 8409038 azithromyci n (ZITHROMAX) 500 MG SOLR 500.0 MG INTRAV ENOUS ONE TIME ONLY Start: 2022 8:47:0 0 AM UTC End: 2022 8:47:0 0 AM UTC KALA Dao MD INTERFAC ED on February 03, 2023 8:46:00 AM UTC Discont inued 422789 nitroglycer in oint (NITRO-BID) 2 % OINT 1.0 IN TOPICA L ONE TIME ONLY Start: 2022 9:13:0 0 AM UTC End: 2022 9:13:0 0 AM UTC KALA Dao MD INTERFAC ED on February 03, 2023 9:12:00 AM UT SOCIAL HISTORY SOCIAL HISTORY SNOMED-CT Social History Element Description Effective Dates Offered Cessation Comment UpdatedBy [id number] Historical Tobacco smoking status Current Every Day Smoker Refused [id number] on February 01, 2023 3:49:56 PM UT [id number] Historical Tobacco smoking status Former Smoker [id number] on March 01, 2017 7:49:12 AM UT SOCIAL HISTORY - Gender Sex: Male SOCIAL HISTORY - Sexual Behavior Sexual Orientation Gender Identity SNOMED-CT Description SNO MED -CT Description Activity Level No of Partners Partner Type UpdatedBy VITAL SIGNS PATIENT VITAL SIGNS This section displays the mo st recent value for each vital sign as of February 03, 2023 11:51:04 AM [facility] Loinc Code Vital Sign Activity Date Result Updated By 8310-5 Body temperature February 03 8:29:00 AM UTC 97.0 [degF] [id number] on February 03, 2023 8:29:38 AM [place] 8462-4 Diastolic blood pressure February 03, 2023 8:30:00 AM UTC 79.0 mm[Hg] [id number] on February 03, 2023 9:02:37 AM [facility] 8867-4 Heart rate February 03, 2023 10:44:00 AM UTC 83 /min [id number] on February 03, 2023 10:46:19 AM [facility] 65143-9 Oxygen saturation in Arterial blood by Pulse oximetry February 03, 2023 10:44:00 AM UTC 96.0 % [id number] on February 03, 2023 10:46:19 AM [facility] 9279-1 Respiratory rate February 03 8:03:00 AM UTC 30 /min [id number] on February 03, 2023 8:34:37 AM [facility] 8480-6 Systolic blood pressure February 03, 2023 8:30:00 AM UTC 136.0 mm[Hg] [id number] on February 03, 2023 9:02:37 AM [facility] PEDIATRIC GROWTH CHART - VITAL SIGNS This [...] available. ENCOUNTERS ENCOUNTER INFORMATION Reason for Visit SOB Admission February 03, 2023 8:03:[address] [id number] Discharge February 03, 2023 10:51:00 AM [facility] ANOTHER SHORT-TERM [facility] HOSPITAL ENCOUNTER DIAGNOSES Notes information is not bartolome ilable. Code System Diagnosis Onset Date Diagnosis information is not available. ABSTRACT DIAGNOSES Code System Diagnosis Updated By Abstract Diagnosis informati on is not available. 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 TIAN ARMENDARIZ Admitting PCP DECLINED Primary Care TIAN ARMENDARIZ Referring TIAN ARMENDARIZ Primary Attending CARE TEAM CARE spanish translator Role on Team Status Start Date End Date Update d By KALA Dao MD Referring normal January 8:08:05 AM [facility] February 03, 2023 10:51:00 AM [facility] [id number] on February 03, 2023 8:08:05 AM [facility] KALA Dao MD Attending normal January 8:08:05 AM [facility] February 03, 2023 10:51:00 AM [facility] [id number] on February 03, 2023 8:08:05 AM [facility] KALA Dao MD Admitting normal January 8:08:05 AM [facility] February 03, 2023 10:51:00 AM [facility] [id number] on February 03, 2023 8:08:05 AM [facility] DECLINED PCP PCP normal February 03 8:04:09 AM [facility] February 03, 2023 10:51:00 AM [facility] [id number] on February 03, 2023 8:08:05 AM [facility]
--- OUTSIDE RECORDS SUMMARY | 2023-04-06 10:20 | XMS_ITS | Continuity of Care Document ---
Author Name Unknown Address [address], [place] [id number] Organization [facility] [employer] Phone Care Team Providers Care Teacher Lip Reading Name Role Phone KEISHA ANDINO Primary Attending KEISHA ANDINO Unavailable KEISHA ANDINO Admitting DECLINED, PCP Primary Care Unavailable ALLERGIES AND ADVERSE REACTIONS ALLERGIES AND ADVERSE REACTIONS Code System Allergy Substance Adverse Reaction Date Reaction (Severity) Comment Status Reported By Updated By [id number] RXNorm PENICILLIN Rash (Moderate) active [id number] on March 20, 2023 4:11:46 PM UT ASSESSMENTS Congestive heart failure ; Chronic obstructive lung disease ; Coronary arteriosclerosis ; Hypertensive disorder ; Hyperlipidemia ; Myocardial infarction ; Nonalcoholic steatohepatitis ; Diabetes mellitus ; Neuropathy ; FAMILY HISTORY RELATION: Father Status: Cause of : Malignant neoplastic disease Age at : 60 SNOMED-CT Diagnosis Age At Onset [id number] Malignant neoplastic disease RELATION: Mother Status: Cause of : Congestive heart failure Age at : 58 SNOMED-CT Diagnosis Age At Onset [id number] Congestive heart failure PROBLEMS PATIENT PROBLEMS Code Description/Comments Status Updated By [id number] Congestive heart failure active euf 9798 on March 20, 2023 3:45:36 PM [facility] [id number] Chronic obstructive lung disease active [id number] on March 20, 2023 5:51:12 PM UT [id number] Coronary arteriosclerosis active HG E4588 on March 20, 2023 5:51:27 PM UT [id number] Hypertensive disorder active [id number] 8 on March 20, 2023 5:51:38 PM UT [id number] Hyperlipidemia active ODS6622 on 2022 5:52:17 PM UT [id number] Myocardial infarction active [id number] 8 on March 20, 2023 5:52:38 PM UT [id number] Nonalcoholic steatohepatitis active [id number] on March 20, 2023 5:52:56 PM UT [id number] Diabetes mellitus active [id number] on March 20, 2023 5:53:04 PM UT [id number] Neuropathy active WHN1265 on Dece mb2022 5:53:16 PM UT RESULTS Patient: WANDER VANN Date of : [birth year] LABORATORY RESULTS ORDER 100: COMP METABOLIC PA LINDA (LOINC: 49848-8) ORDER DATE: March 20, 2023 10:41:00 AM UT Specimen Source: Serum/Plasm a PERFORMING LAB: [address] [id number] Result Comment: Final Result Date: March 20, 2023 11:11:00 AM [facility] (TECH: [facility]) LOINC TEST FLAG RESULT REFERENCE RANGE UPDA YOAV BY 2951-2 Sodium [Moles/volume ] in Serum or Plasma N 145 mmol/L 136 mmol/L - 145 mmol/L March 20, 2023 11:11:00 AM UT (TECH: [facility]) 2823-3 Potassium [Moles/volume] in Serum or Plasma N 4.5 mmol/L 3.5 mmol/L - 5.1 mmol/L March 20, 2023 11:11:00 AM [facility] ([facility]) 2075-0 Chloride [Moles/volu me] in Serum or Plasma N 107 mmol/L 98 mmol/L - 107 mmol/L March 20, 2023 11:11:00 AM [facility]) 8-9 Carbon dioxide, tota l [Moles/volume] in Serum or Plasma N 29 mmol/L 21 mmol/L - 32 mmol/L March 20, 2023 11:11:00 AM UT (TECH: [facility]) 05989-2 Anion gap 3 in Serum or Plasma N 9.0 March 20, 2023 11:11:00 AM [facility] ([facility] 2345-7 Glucose [Mass/volume ] in Serum or Plasma H 164 mg/dL 70 mg/dL - 110 mg/dL March 20, 2023 11:11:00 AM UT (TECH: [facility]) 3094-0 Urea nitrogen [Mass/volume] in Serum or Plasma H 42 mg/dL 7 mg/dL - 18 mg/dL March 20, 2023 11:11:00 AM [facility] (TECH: [facility]) 2160-0 Creatinine [Mass/volume] in Serum or Plasma H 2.5 mg/dL 0.8 mg/dL - 1.3 mg/dL March 20, 2023 11:11:00 AM [facility] ([place]) 3097-3 Urea nitrogen/Creatinine [Mass Ratio] in Serum or Plasma N 16.8 Ratio 9 Ratio - 21 Ratio March 20, 2023 11:11:00 AM [facility] ([employer]: [facility]) 70389-9 Glomerular filtratio n rate/1.73 sq M.predicted by Creatinine-based formula (MDRD) L 29 mL/min >60 March 20, 2023 11:11:00 AM [facility] ([employer]: [facility]) 2885-2 Protein [Mass/volume ] in Serum or Plasma N 6.9 g/dL 6.4 g/dL - 8.2 g/dL March 20, 2023 11:11:00 AM [facility] ([employer]: [facility]) 1751-7 Albumin [Mass/volume ] in Serum or Plasma L 2.8 g/dL 3.4 g/dL - 5.0 g/dL March 20, 2023 11:11:00 AM [facility] ([place]) 96285-8 Calcium [Mass/volume ] in Serum or Plasma N 8.7 mg/dL 8.5 mg/dL - 10.1 mg/dL March 20, 2023 11:11:00 AM [facility] ([employer]: [facility]) 84702-1 Calcium [Mass/volume ] corrected for total protein in Serum or Plasma N 9.7 mg/dL 8.5 mg/dL - 10.1 mg/dL March 20, 2023 11:11:00 AM [facility] ([employer]: [facility]) 1975-2 Bilirubin.total [Mass/volume] in Serum or Plasma N 0.8 mg/dL 0.4 mg/dL - 1.5 mg/dL March 20, 2023 11:11:00 AM [facility] (TECH: [facility]) 1920-8 Aspartate aminotransferase [Enzymatic activity/volume] in Serum or Plasma H 39 U/L 15 U/L - 37 U/L March 20, 2023 11:11:00 AM [facility] (TECH: [facility]) 1742-6 Alanine aminotransferase [Enzymatic activity/volume] in Serum or Plasma N 25 U/L 12 U/L - 78 U/L March 20, 2023 11:11:00 AM UT (TECH: [facility]) 6768-6 Alkaline phosphatase [Enzymatic activity/volume] in Serum or Plasma H 204 U/L 50 U/L - 170 U/L March 20, 2023 11:11:00 AM UT (TECH: [facility]) ORDER 200: CBC AUTO W DIFF ( LOINC: 56478-5) ORDER DATE: March 20, 2023 10:41:00 AM UT Specimen Source: Whole Blood PERFORMING LAB: [address] [id number] Result Comment: Final Result Date: March 20, 2023 10:55:00 AM UT (TECH: [facility]) LOINC TEST FLAG RESULT REFERENCE RANGE UPDA YOAV BY 6690-2 Leukocytes [#/volume] in Blood by Automated count N 11.0 10^3/uL 4.5 10^3/uL - 11.5 10^3/uL March 20, 2023 10:55:00 AM UT (TECH: [facility]) 789-8 Erythrocytes [#/volume] in Blood by Automated count N 4.55 10^6/uL 4.25 10^6/uL - 5.57 10^6/uL March 20, 2023 10:55:00 AM UT (TECH: [facility]) 718-7 Hemoglobin [Mass/volume] in Blood L 12.9 g/dL 13.5 g/dL - 17.2 g/dL March 20, 2023 10:55:00 AM [facility] (TECH: [facility]) 86192-6 Hematocrit [Volume Fraction] of Blood L 40.6 % 42.0 % - 52.0 % March 20, 2023 10:55:00 AM UTC (TECH: [facility]) 787-2 Erythrocyte mean corpuscular volume [Entitic volume] by Automated count N 89.2 fl 80 fl - 95 fl March 20, 2023 10:55:00 AM [place] (TECH: [facility]) 92804-9 Erythrocyte mean corpuscular hemoglobin [Entitic mass] in Blood from [place] by Automated count N 28.4 pg 27.0 pg - 34.0 pg March 20, 2023 10:55:00 AM UTC (TECH: [facility]) 49548-7 Erythrocyte mean corpuscular hemoglobin concentration [Mass/volume] in Blood from [place] by Automated count L 31.8 g/dL 32.0 g/dL - 36.0 g/dL March 20, 2023 10:55:00 AM UTC (TECH: [facility]) 13612-2 Platelets [#/volume] in Blood N 317 10^3/uL 150 10^3/uL - 450 10^3/uL March 20, 2023 10:55:00 AM UTC (TECH: [facility]) 07952-5 Erythrocyte distribution width [Ratio] N 13.8 % 12.3 % - 15.1 % March 20, 2023 10:55:00 AM UTC (TECH: [facility]) 41799-0 Platelet mean volume [Entitic volume] in Blood by Automated count H 11.2 fl 7.4 fl - 10.4 fl March 20, 2023 10:55:00 AM UTC (TECH: [facility]) 66016-7 Granulocytes/100 leukocytes in Blood by Automated count N 42.7 % 40 % - 75 % March 20, 2023 10:55:00 AM UTC (TECH: [facility]) 736-9 Lymphocytes/100 leukocytes in Blood by Automated count N 47.5 % 15 % - 57 % March 20, 2023 10:55:00 AM UTC (TECH: [facility]) 5905-5 Monocytes/100 leukocytes in Blood by Automated count N 6.8 % 4.0 % - 12.0 % March 20, 2023 10:55:00 AM UTC (TECH: [facility]) 713-8 Eosinophils/100 leukocytes in Blood by Automated count N 2.0 % 0.0 % - 4.0 % March 20, 2023 10:55:00 AM UTC (TECH: [facility]) 706-2 Basophils/100 leukocytes in Blood by Automated count N 0.5 % 0.0 % - 1.0 % March 20, 2023 10:55:00 AM UTC (TECH: [facility]) 71024-0 Immature granulocytes [#/volume] in Blood N 0.5 % 0.0 % - 0.8 % March 20, 2023 10:55:00 AM UTC (TECH: [facility]) 40387-6 Granulocytes [#/volume] in Blood by Automated count N 4.70 10^3/uL March 20, 2023 10:55:00 AM UTC (TECH: [facility]) 731-0 Lymphocytes [#/volume] in Blood by Automated count N 5.22 10^3/uL March 20, 2023 10:55:00 AM UTC (TECH: [facility]) 742-7 Monocytes [#/volume] in Blood by Automated count N 0.75 10^3/uL March 20, 2023 10:55:00 AM UTC (TECH: [facility]) 711-2 Eosinophils [#/volume] in Blood by Automated count N 0.22 10^3/uL March 20, 2023 10:55:00 AM UTC (TECH: AC) 704-7 Basophils [#/volume] in Blood by Automated count N 0.06 10^3/uL March 20, 2023 10:55:00 AM UTC (TECH: [facility]) 33880-9 Immature granulocytes [#/volume] in Blood N 0.05 10^3/uL March 20, 2023 10:55:00 AM UTC (TECH: AC) 86894-0 Manual differential performed [Presence] in Blood N NO March 20, 2023 10:55:00 AM UTC (TECH: AC) ORDER 400: TROPONIN QUANT (L OINC: 00607-6) ORDER DATE: March 20, 2023 10:41:00 AM UTC Specimen Source: Serum/Plasm a PERFORMING LAB: [address] [id number] Result Comment: Final Result Date: March 20, 2023 11:12:00 AM UTC (TECH: [facility]) LOINC TEST [place] [address]-6 Troponin I.cardiac panel - Serum or Plasma by High sensitivity method HH 316 ng/L 0 ng/L - 76 ng/L March 20, 2023 11:12:00 AM UTC (TECH: [facility]) ORDER 500: MAGNESIUM (LOINC: 89326-0) ORDER DATE: March 20, 2023 10:41:00 AM UTC Specimen Source: Serum/Plasm a PERFORMING LAB: [address] [id number] Result Comment: Final Result Date: March 20, 2023 11:12:00 AM UTC (TECH: [facility]) LOINC TEST [place] [address]-0 Magnesium [Mass/volume] in Serum or Plasma N 2.1 mg/dL 1.8 mg/dL - 2.4 mg/dL March 20, 2023 11:12:00 AM UTC (TECH: [facility]) ORDER 600: LACTIC ACID (LOIN C: 60740-4) ORDER DATE: March 20, 2023 10:41:00 AM UTC Specimen Source: Serum/Plasm a PERFORMING LAB: [address] [id number] Result Comment: Final Result Date: March 20, 2023 11:12:00 AM UTC (TECH: [facility]) LOINC TEST FLAG [place] [address]-7 Lactate [Mass/volume] in Serum or Plasma N 1.8 mmole/L 0.4 mmole/L - 2.0 mmole/L March 20, 2023 11:12:00 AM UTC (TECH: [facility]) ORDER 1200: TROPONIN I 1 LARISSA R PROTOCOL (LOINC: 97552-9) ORDER DATE: March 20, 2023 12:10:00 PM UTC Specimen Source: Plasma PERFORMING LAB: [address] [id number] Result Comment: Final Result Date: March 20, 2023 12:39:00 PM UTC (TECH: [facility]) LOINC TEST [place] [address]-1 Troponin I.cardiac panel - Serum or Plasma by High sensitivity method HH 295 ng/L 0 ng/L - 76 ng/L March 20, 2023 12:39:00 PM UTC (TECH: [facility]) ORDER 1300: B-TYPE NATRIURET IC PEPTIDE BNP (LOINC: 17924-3) ORDER DATE: March 20, 2023 12:10:00 PM UTC Specimen Source: Whole Blood PERFORMING LAB: [address] [id number] Result Comment: Final Result Date: March 20, 2023 12:34:00 PM UTC (TECH: [facility]) LOINC TEST FLAG [place] [address]-5 Natriuretic peptide B [Mass/volume] in Serum or Plasma H 2900.0 pg/mL 0.0 pg/mL - 100 pg/mL March 20, 2023 12:34:00 PM UTC (TECH: [facility]) ORDER 1400: PROCALCITONIN (L OINC: 30381-9) ORDER DATE: March 20, 2023 12:11:00 PM UTC Specimen Source: Serum/Plasm a PERFORMING LAB: [address] [id number] Result Comment: Final Result Date: March 20, 2023 12:35:00 PM UTC (TECH: [facility]) LOINC TEST FLAG [place] [address]-4 Procalcitonin [Mass/volume] in Serum or Plasma N <0.05 ng/ml 0.00 ng/ml - 0.5 ng/ml March 20, 2023 12:35:00 PM UTC (TECH: [facility]) ORDER 3100: COMP METABOLIC P CECILIA (LOINC: 09763-2) ORDER DATE: March 20, 2023 3:49:00 PM UTC Specimen Source: Serum/Plasm a PERFORMING LAB: [address] [id number] Result Comment: Final Result Date: March 21, 2023 11:49:00 AM UTC (TECH: [facility]) LOINC TEST FLAG RESULT REFERENCE RANGE UPDA YOAV BY 2951-2 Sodium [Moles/volume ] in Serum or Plasma N 139 mmol/L 136 mmol/L - 145 mmol/L March 21, 2023 11:49:00 AM UTC (TECH: [facility]) 2823-3 Potassium [Moles/volume] in Serum or Plasma N 4.8 mmol/L 3.5 mmol/L - 5.1 mmol/L March 21, 2023 11:49:00 AM UT (TECH: [facility]) 5-0 Chloride [Moles/volu me] in Serum or Plasma N 105 mmol/L 98 mmol/L - 107 mmol/L March 21, 2023 11:49:00 AM UTC (TECH: [facility]) 8-9 Carbon dioxide, tota l [Moles/volume] in Serum or Plasma N 26 mmol/L 21 mmol/L - 32 mmol/L March 21, 2023 11:49:00 AM UT (TECH: [facility]) 22788-4 Anion gap 3 in Serum or Plasma N 8.0 March 21, 2023 11:49:00 AM UT (TECH: [facility]) 2345-7 Glucose [Mass/volume ] in Serum or Plasma H 135 mg/dL 70 mg/dL - 110 mg/dL March 21, 2023 11:49:00 AM [facility] (TECH: [facility]) 3094-0 Urea nitrogen [Mass/volume] in Serum or Plasma H 65 mg/dL 7 mg/dL - 18 mg/dL March 21, 2023 11:49:00 AM [facility] (TECH: [facility]) 2160-0 Creatinine [Mass/volume] in Serum or Plasma H 3.3 mg/dL 0.8 mg/dL - 1.3 mg/dL March 21, 2023 11:49:00 AM [facility] (TECH: [facility]) 3097-3 Urea nitrogen/Creatinine [Mass Ratio] in Serum or Plasma N 19.7 Ratio 9 Ratio - 21 Ratio March 21, 2023 11:49:00 AM [facility] ([employer]: [facility]) 93733-1 Glomerular filtratio n rate/1.73 sq M.predicted by Creatinine-based formula (MDRD) L 21 mL/min >60 March 21, 2023 11:49:00 AM [facility] (TECH: [facility]) 2885-2 Protein [Mass/volume ] in Serum or Plasma L 5.4 g/dL 6.4 g/dL - 8.2 g/dL March 21, 2023 11:49:00 AM [facility] ([employer]: [facility]) 1751-7 Albumin [Mass/volume ] in Serum or Plasma L 2.3 g/dL 3.4 g/dL - 5.0 g/dL March 21, 2023 11:49:00 AM [facility] ([employer]: [facility]) 05009-6 Calcium [Mass/volume ] in Serum or Plasma L 8.3 mg/dL 8.5 mg/dL - 10.1 mg/dL March 21, 2023 11:49:00 AM [facility] ([employer]: [facility]) 60659-0 Calcium [Mass/volume ] corrected for total protein in Serum or Plasma N 9.7 mg/dL 8.5 mg/dL - 10.1 mg/dL March 21, 2023 11:49:00 AM [facility] ([employer]: [facility]) 1975-2 Bilirubin.total [Mass/volume] in Serum or Plasma N 0.5 mg/dL 0.4 mg/dL - 1.5 mg/dL March 21, 2023 11:49:00 AM [facility] (TECH: [facility]) 1920-8 Aspartate aminotransferase [Enzymatic activity/volume] in Serum or Plasma N 26 U/L 15 U/L - 37 U/L March 21, 2023 11:49:00 AM UTC (TECH: [facility]) 1742-6 Alanine aminotransferase [Enzymatic activity/volume] in Serum or Plasma N 18 U/L 12 U/L - 78 U/L March 21, 2023 11:49:00 AM UTC (TECH: [facility]) 6768-6 Alkaline phosphatase [Enzymatic activity/volume] in Serum or Plasma N 139 U/L 50 U/L - 170 U/L March 21, 2023 11:49:00 AM UTC (TECH: [facility]) ORDER 3200: MAGNESIUM (LOINC : 66405-9) ORDER DATE: March 20, 2023 3:49:00 PM UTC Specimen Source: Serum/Plasm a PERFORMING LAB: [address] [id number] Result Comment: Final Result Date: March 21, 2023 11:49:00 AM UTC (TECH: [facility]) LOINC TEST FLAG [place] [address]-6 Magnesium [Mass/volume] in Serum or Plasma N 2.0 mg/dL 1.8 mg/dL - 2.4 mg/dL March 21, 2023 11:49:00 AM UTC (TECH: [facility]) ORDER 3300: GLUCOSE BLD METE R (LOINC: 38842-9) ORDER DATE: March 20, 2023 5:05:00 PM UTC Specimen Source: Whole Blood PERFORMING LAB: [address] [id number] Result Comment: March 20, 2023 5:05:00 PM UTC Test performed by: [id number] ; Instrument: [id number] Final Result Date: March 20, 2023 5:05:00 PM UTC (TECH: [facility]) LOINC TEST FLAG [place] [address]-0 Glucose [Mass/volume] in Capillary blood by Glucometer H 167 mg/dl 70 mg/dl - 115 mg/dl March 20, 2023 5:05:00 PM UTC (TECH: [facility]) ORDER 3800: GLUCOSE BLD METE R (LOINC: 94891-4) ORDER DATE: March 20, 2023 9:08:00 PM UTC Specimen Source: Whole Blood PERFORMING LAB: [address] [id number] Result Comment: March 20, 2023 9:09:00 PM UTC Test performed by: [id number] ; Instrument: [id number] Final Result Date: March 20, 2023 9:08:00 PM UTC (TECH: [facility]) LOINC TEST FLAG [place] [address]-7 Glucose [Mass/volume] in Capillary blood by Glucometer H 351 mg/dl 70 mg/dl - 115 mg/dl March 20, 2023 9:08:00 PM UTC (TECH: [facility]) ORDER 4100: GLUCOSE BLD METE R (LOINC: 09227-8) ORDER DATE: March 21, 2023 1:12:00 AM UTC Specimen Source: Whole Blood PERFORMING LAB: [address] [id number] Result Comment: March 21, 2023 1:16:00 AM UTC Test performed by: [id number] ; Instrument: [id number] Final Result Date: March 21, 2023 1:12:00 AM UTC (TECH: [facility]) LOINC TEST FLAG [place] [address]-2 Glucose [Mass/volume] in Capillary blood by Glucometer H 418 mg/dl 70 mg/dl - 115 mg/dl March 21, 2023 1:12:00 AM UTC (TECH: [facility]) ORDER 4200: GLUCOSE BLD METE R (LOINC: 41784-8) ORDER DATE: March 21, 2023 2:15:00 AM UTC Specimen Source: Whole Blood PERFORMING LAB: [address] [id number] Result Comment: March 21, 2023 2:55:00 AM UTC Test performed by: [id number] ; Instrument: [id number] Final Result Date: March 21, 2023 2:15:00 AM UTC (TECH: [facility]) LOINC TEST FLAG [place] [address]-9 Glucose [Mass/volume] in Capillary blood by Glucometer H 393 mg/dl 70 mg/dl - 115 mg/dl March 21, 2023 2:15:00 AM UTC (TECH: [facility]) ORDER 4300: GLUCOSE BLD METE R (LOINC: 43225-0) ORDER DATE: March 21, 2023 4:11:00 AM UTC Specimen Source: Whole Blood PERFORMING LAB: [address] [id number] Result Comment: March 21, 2023 8:03:00 AM UTC Test performed by: [id number] ; Instrument: [id number] Final Result Date: March 21, 2023 4:11:00 AM UTC (TECH: [facility]) [facility] TEST FLAG [place]ULT [place] [address]-4 Glucose [Mass/volume ] in Capillary blood by Glucometer H 250 mg/dl 70 mg/dl - 115 mg/dl February 4:11:00 AM UTC (TECH: [facility]) LABORATORY NARRATIVE RESULTS Information is not available RADIOLOGY RESULTS ORDER 700: CHEST SINGLE VIEW /PORTABLE ([facility]: 09517-9) ORDER DATE: March 20, 2023 10:41:00 AM UTC PATHOLOGY NARRATIVE RESULTS Information is not available MICROBIOLOGY RESULTS No Micro Labs/Results Exist for Patient BLOOD ADMIN RESULTS Information is not available TREATMENT PLAN DISCHARGE MEDICATIONS Status RXNORM Medication Dose Route Frequency Dates Comments U pdated By Patient discharge medication information is not available. PATIENT OPEN ORDERS Code System Description Frequency Occurrences Priority [place] [address]-2 [facility] EKG study ONE TIME 0 Stat March 20, 2023 10:41:00 AM [facility] ALBINO HERNANDEZ MD [id number] on March 20, 2023 10:41:00 AM [place] 600-7 [facility] Bacteria identified in Blood by Culture ONE TIME 0 Stat March 20, 2023 10:42:00 AM [facility] ALBINO HERNANDEZ MD [id number] on March 20, 2023 5:00:00 AM UT 600-7 LOINC Bacteria identified in Blood by Culture ONE TIME 0 Stat March 20, 2023 10:42:00 AM [facility] ALBINO HERNANDEZ MD [id number] on March 20, 2023 10:03:[place] [address]-6 LOINC Biphasic positive airway pressure (BIPAP) activ ONE TIME 0 Routine March 20, 2023 11:09:00 AM [facility] ALBINO HERNANDEZ MD [id number] on March 20, 2023 11:09:00 AM [facility] 71395-7 LOINC Admitted as an inpatient ONE TIME 0 Stat March 20, 2023 1:55:00 PM UT MARLENA Reynoso MD 2255 on March 20, 2023 1:55:00 PM UT RFSO2 [facility] CARDIOPULMO NARY OXYGEN ONE TIME 0 Stat March 20, 2023 1:55:00 PM UT MARLENA Reynoso MD 2255 on March 20, 2023 1:55:[place] [address]-9 LOINC Provider orders ONE TIME 0 Stat March 20, 2023 1:55:00 PM UT MARLENA Reynoso MD 2255 on March 20, 2023 1:55:[place] [address]-0 LOINC Diagnosis ONE TIME 0 Stat March 20, 2023 1:55:00 PM UT MARLENA Reynoso MD 2255 on March 20, 2023 1:55:00 PM UT 8716-3 [facility] Vital signs ONE TIME 0 Stat March 20, 2023 1:55:00 PM UT MARLENA Reynoso MD 2255 on March 20, 2023 1:55:[place] [address]-9 [facility] Current activity level ONE TIME 0 Stat March 20, 2023 1:55:00 PM UT MARLENA Reynoso MD 2255 on March 20, 2023 1:55:[place] [address]-1 LOINC Condition ONE TIME 0 Stat March 20, 2023 1:55:00 PM [place] MARLENA Reynoso MD 2255 on March 20, 2023 1:55:[place] [address]-9 LOINC Diet [Type] ONE TIME 0 Stat March 20, 2023 1:55:00 PM UT MARLENA Ryenoso MD 2255 on March 20, 2023 1:55:[place] [address]-1 LOINC Admission Information ONE TIME 0 Routine March 20, 2023 3:45:00 PM UT THU Reynoso MD [id number] on March 20, 2023 3:49:00 PM UT 143058-5 LOINC Cardiopulmo nary resuscitati on orders ONE TIME 0 Routine March 20, 2023 3:45:00 PM UT THU Reynoso MD [id number] on March 20, 2023 3:49:[place] [address]-7 LOINC Provider orders ONE TIME 0 Routine March 20, 2023 3:45:00 PM UT THU Reynoso MD [id number] on March 20, 2023 3:49:00 PM [facility] 081856-5 LOINC Inspiratory reserve [Volume] Respiratory system ONE TIME 0 Routine March 20, 2023 3:45:00 PM [facility] THU Reynoso MD [id number] on March 20, 2023 3:49:00 PM [facility] 97599-4 LOINC Diet [Type] ONE TIME 0 Routine March 20, 2023 3:45:00 PM [facility] THU Reynoso MD [id number] on March 20, 2023 3:49:00 PM [facility] 90315-3 LOINC History of Tobacco use ONE TIME 0 Routine March 20, 2023 3:45:00 PM [facility] THU Reynoso MD [id number] on March 20, 2023 3:49:00 PM [facility] RFSO2 [facility] CARDIOPULMO NARY OXYGEN ONE TIME 0 Routine March 20, 2023 3:45:00 PM [facility] THU Reynoso MD [id number] on March 20, 2023 3:49:00 PM [facility] 07847-9 [facility] CBC W Auto Differentia l panel - Blood IN AM 1 Routine March 21, 2023 10:00:00 AM [facility] THU Reynoso MD [id number] on March 21, 2023 10:55:00 AM [facility] CONSCR [facility] CONSULT CARDIAC REHAB ONE TIME 0 Routine March 20, 2023 6:39:00 PM [facility] THU Reynoso MD [id number] on March 20, 2023 6:39:00 PM [facility] REQNUT [facility] CONSULT HAND TOUCH UP PAINTER ONE TIME 0 Routine March 20, 2023 6:39:00 PM [facility] THU Reynoso MD [id number] on March 20, 2023 6:39:00 PM [facility] CONSPR [facility] CONSULT PULMONARY REHAB ONE TIME 0 Routine March 20, 2023 6:39:00 PM [facility] THU Reynoso MD [id number] on March 20, 2023 6:39:00 PM [facility] CONCOPD [facility] COPD EDUCATION FROM [employer] ONE TIME 0 Routine March 20, 2023 6:39:00 PM [facility] THU Reynoso MD [id number] on March 20, 2023 6:39:00 PM [facility] [id number] [facility] (C) OXYGEN PER DAY ONE TIME 0 Routine March 20, 2023 11:03:00 PM [facility] THU Reynoso MD [id number] on March 20, 2023 11:03:00 PM [facility] 03366-5 [facility] Risk for venous thromboembo lism ONE TIME 0 Routine March 21, 2023 12:07:00 AM [facility] THU Reynoso MD [id number] on March 21, 2023 12:07:00 AM [facility] [id number] [facility] Collection method - Specimen ONE TIME 0 Routine March 21, 2023 10:00:00 AM [facility] THU Reynoso MD [id number] on March 21, 2023 10:55:00 AM [facility] SCHEDULED PROCEDURES Code System Description Status Scheduled Date Upd ated By Patient scheduled procedure information is not available. MEDICATIONS HOME MEDICATIONS Status RXNORM Medication Dose Route Frequency Dates Comments R eported By Updated By Active 021497 atorvastatin calcium (LIPITOR) 40.0 MG PO DAILY Last Dose: [id number] on March 20, 2023 11:00:32 AM [facility] Active 096037 Carvedilol Tablet 6.25 MG 6.25 MG PO BID Last Dose: [id number] on March 20, 2023 4:23:07 PM [facility] Active 863820 Clopidogrel Bisulfate Tablet 75 MG 75.0 MG PO DAILY Last Dose: [id number] on March 20, 2023 4:23:17 PM [facility] Active [id number] Furosemide Tablet 20 MG 20.0 MG PO DAILY Last Dose: [id number] on March 20, 2023 4:24:22 PM [facility] Active 174491 Nitroglycerin Tablet 0.4 MG 0.4 MG SUBLING [id number] Last Dose: Max 3 doses [id number] on March 20, 2023 4:25:05 PM [facility] Active [id number] NovoLOG FlexPen Solution Pen-injector 100 UNIT/ML 5.0 UNT SUBCUT TIDWM Last Dose: [id number] on March 20, 2023 3:44:54 PM [facility] Active 047205 Levemir Subcutaneous Solution 100 UNIT/ML 12.0 UNT SUBCUT BEDTIME Last Dose: PATIENT [id number] on March 20, 2023 3:44:49 PM [facility] Active 989527 amLODIPine Besylate Oral Tablet 10 MG 10.0 MG PO DAILY Last Dose: [id number] on March 20, 2023 4:22:09 PM [facility] Active [id number] ASPIR-LOW 81.0 MG PO DAILY Last Dose: [id number] on March 20, 2023 4:22:42 PM [place] Active 547371 Entecavir Oral Tablet 0.5 MG 0.5 GM PO Q72H Last Dose: [id number] on March 20, 2023 4:23:59 PM UT Active 595410 Gabapentin Oral Tablet 600 MG 600.0 MG PO TID Last Dose: [id number] on March 20, 2023 4:24:48 PM UT DISCHARGE MEDICATIONS Status RXNORM Medication Dose Route Frequency Dates Comments Physic maia Updated By No Discharge Medication Info rmation Available INPATIENT MEDICATIONS Status RXNORM Medication Dose Route Frequency Rate Quantity Dates Comments Physician Updated By Discont inued [id number] nitroglycer in SL (NITROSTAT) 0.4 MG SUBL 0.4 MG SUBLIN GUAL ONE TIME ONLY Start: [facility] er 2022 10:40: 00 AM UT End: [facility] er 2022 10:40: 00 AM UT ALBINO HERNANDEZ MD INTERFAC ED on March 20, 2023 10:40:00 AM UT Discont inued [id number] LORazepam (ATIVAN) 2 MG/ML SOLN 2.0 MG IV PUSH ONE TIME ONLY Start: [facility] er 2022 10:44: 00 AM UT End: [facility] er 2022 10:44: 00 AM UT ALBINO HERNANDEZ MD INTERFAC ED on March 20, 2023 10:43:00 AM UT Discont inued [id number] furosemide 40mg vial (LASIX) 10 MG/ML SOLN 40.0 MG IV PUSH ONE TIME ONLY Start: [facility] er 2022 10:46: 00 AM UT End: [facility] er 2022 10:46: 00 AM UT ALBINO HERNANDEZ MD INTERFAC ED on March 20, 2023 10:45:00 AM UT Discont inued [id number] amLODIPine (NORVASC) 5 MG TABS 5.0 MG BY MOUTH ONE TIME ONLY Start: [facility] er 2022 12:02: 00 PM UT End: [facility] er 2022 12:02: 00 PM UT ALBINO HERNANDEZ MD INTERFAC ED on March 20, 2023 12:01:00 PM UTC Discont inued [id number] furosemide 40mg vial (LASIX) 10 MG/ML SOLN 40.0 MG IV PUSH ONE TIME ONLY Start: [facility] 2022 12:02: 00 PM UTC End: [facility] 2022 12:02: 00 PM UTC ALBINO HERNANDEZ MD INTERFAC ED on March 20, 2023 12:02:00 PM UTC Discont inued [id number] hydrALAZINE (APRESOLINE ) 25 MG TABS 25.0 MG BY MOUTH ONE TIME ONLY Start: [facility] 2022 12:48: 00 PM UTC End: [facility] er 2022 12:48: 00 PM UTC ALBINO HERNANDEZ MD INTERFAC ED on March 20, 2023 12:47:00 PM UTC Discont inued [id number] metolazone (ZAROXOLYN) 5 MG TABS 5.0 MG BY MOUTH ONE TIME ONLY Start: [facility] 2022 1:06:0 0 PM UTC End: [facility] er 2022 1:06:0 0 PM UTC ALBINO HERNANDEZ MD INTERFAC ED on March 20, 2023 1:05:00 PM UTC Discont inued [id number] losartan potassium (COZAAR) 50 MG TABS 50.0 MG BY MOUTH ONE TIME ONLY Start: [facility] 2022 1:06:0 0 PM UTC End: [facility] er 2022 1:06:0 0 PM UTC ALBINO HERNANDEZ MD INTERFAC ED on March 20, 2023 1:06:00 PM UTC Discont inued [id number] isosorbide mononitrate SR 24HR 60 MG TB24 60.0 MG BY MOUTH ONE TIME ONLY Start: [facility] 2022 1:19:0 0 PM UTC End: [facility] 2022 1:19:0 0 PM UTC ALBINO HERNANDEZ MD INTERFAC ED on March 20, 2023 1:18:00 PM UTC Active 226678 carvedilol (COREG) 6.25 MG TABS 6.25 MG BY MOUTH TWICE A DAY Start: [facility] 2022 2:00:0 0 AM UTC End: Januar y 2023 2:00:0 0 PM UTC THU Reynoso MD [id number] on March 20, 2023 3:44:00 PM UTC Discont inued Aspirin 81 Tablet Chewable 81 MG 1.0 TAB BY MOUTH ONCE DAILY Start: [facility] er 2022 2:00:0 0 PM UTC End: [facility] er 2022 2:00:0 0 PM UTC THU Reynoso MD [id number] on March 20, 2023 4:12:00 PM UTC Discont inued gabapentin (NEURONTIN) 600.0 MG BY MOUTH THREE TIMES A DAY Start: [facility] er 2022 8:00:0 0 PM UTC End: [facility] er 2022 8:00:0 0 PM UTC THU Reynoso MD [id number] on March 20, 2023 4:16:00 PM UTC Active 520611 atorvastati n calcium (LIPITOR) 40 MG TABS 40.0 MG BY MOUTH ONCE DAILY Start: [facility] 2022 2:00:0 0 PM UTC End: 2023 2:00:0 0 PM UTC THU Reynoso MD [id number] on March 20, 2023 3:44:00 PM UTC Discont inued amLODIPine (NORVASC) 10.0 MG BY MOUTH ONCE DAILY Start: [facility] 2022 2:00:0 0 PM UTC End: [facility] 2022 2:00:0 0 PM UTC THU Reynoso MD [id number] on March 20, 2023 4:12:00 PM UTC Active 603706 clopidogrel (PLAVIX) 75 MG TABS 75.0 MG BY MOUTH ONCE DAILY Start: [facility] 2022 2:00:0 0 PM UTC End: r y 2023 2:00:0 0 PM UTC THU Reynoso MD [id number] on March 20, 2023 3:44:00 PM UTC Discont inued Levemir Subcutaneou s Solution 100 UNIT/ML 12.0 UNT SUBCUT ANEOUS AT BEDTIME Start: [facility] er 2022 2:00:0 0 AM UTC End: [facility] er 2022 2:00:0 0 AM UTC THU Reynoso MD [id number] on March 20, 2023 4:18:00 PM UTC Active 631745 insulin lispro(DAVID LOG) 100 UNIT/ML SOLN 1.0 UNT SUBCUT ANEOUS SLIDING SCALE NEEDED Start: [facility] er 2022 3:45:0 0 PM UTC End: Maruar y 2023 3:44:0 0 PM UTC THU Reynoso MD [id number] on March 20, 2023 3:45:00 PM UTC Active 0125722 dextrose SYR (D50) PFS 50 % SOLN 50.0 ML IV PUSH NEEDED Start: [facility] er 2022 3:45:0 0 PM UTC End: Maruar y 2023 3:44:0 0 PM UTC THU Reynoso MD [id number] on March 20, 2023 3:45:00 PM UTC Active MONOJECT FLUSH SYRINGE 0.9 % SOLN 10.0 ML IV FLUSH TWICE A DAY Start: [facility] er 2022 2:00:0 0 AM UTC End: r 2023 2:00:0 0 PM UTC THU Reynoso MD [id number] on March 20, 2023 3:47:00 PM UTC Active 324308 hydrALAZINE (APRESOLINE ) 20 MG/ML SOLN 10.0 MG IV PUSH EVERY FOUR HOURS NEEDED Start: [facility] er 2022 3:45:0 0 PM UTC End: 2023 3:44:0 0 PM UTC THU Reynoso MD [id number] on March 20, 2023 3:47:00 PM UTC Active 7850945 LABETALOL 5 MG/ML SOLN 10.0 MG IV PUSH EVERY TWO HOURS NEEDED Start: [facility] er 2022 3:45:0 0 PM UTC End: Maruar y 2023 3:44:0 0 PM UTC THU Reynoso MD [id number] on March 20, 2023 3:47:00 PM UTC Active 706514 ACETAMINOPH EN 325 MG TABS 650.0 MG BY MOUTH EVERY SIX HOURS NEEDED Start: [facility] er 2022 3:45:0 0 PM UTC End: Maruar y 2023 3:44:0 0 PM UTC THU Reynoso MD [id number] on March 20, 2023 3:47:00 PM UTC Active 587979 traZODone (DESYREL) 50 MG TABS 50.0 MG BY MOUTH AT BEDTIME NEEDED Start: [facility] er 2022 3:45:0 0 PM UTC End: 2023 3:44:0 0 PM UTC THU Reynoso MD [id number] on March 20, 2023 3:47:00 PM UTC Active 885423 enoxaparin (LOVENOX) 30 MG/0.3ML SOSY 30.0 MG SUBCUT ANEOUS ONCE DAILY Start: [facility] er 2022 2:00:0 0 PM UTC End: 2023 2:00:0 0 PM UTC THU Reynoso MD [id number] on March 20, 2023 3:47:00 PM UTC Active 1385942 ondansetron (ZOFRAN) 4 MG/2ML SOLN 4.0 MG IV PUSH EVERY EIGHT HOURS NEEDED Start: [facility] er 2022 3:45:0 0 PM UTC End: 2023 3:44:0 0 PM UTC THU Reynoso MD [id number] on March 20, 2023 3:47:00 PM UTC Active 470117 ondansetron (ZOFRAN) 4 MG TBDP 4.0 MG SUBLIN GUAL EVERY EIGHT HOURS NEEDED Start: [facility] er 2022 3:45:0 0 PM UTC End: 2023 3:44:0 0 PM UTC THU Reynoso MD [id number] on March 20, 2023 3:47:00 PM UTC Discont inued 7763220 furosemide 40mg vial (LASIX) 10 MG/ML SOLN 80.0 MG IV PUSH ONCE DAILY Start: [facility] er 2022 2:00:0 0 PM UTC End: [facility] er 2022 2:00:0 0 PM UTC THU Reynoso MD [id number] on March 20, 2023 4:16:00 PM UTC Active 192912 isosorbide mononitrate SR 24HR 60 MG TB24 60.0 MG BY MOUTH ONCE DAILY Start: [facility] 2022 3:48:0 0 PM UTC End: 2023 2:00:0 0 PM UTC THU Reynoso MD [id number] on March 20, 2023 3:48:00 PM UTC Active 042012 hydrALAZINE (APRESOLINE ) 25 MG TABS 50.0 MG BY MOUTH THREE TIMES A DAY Start: [facility] 2022 3:48:0 0 PM UTC End: 2023 2:00:0 0 AM UTC THU Reynoso MD [id number] on March 20, 2023 3:48:00 PM UTC Active 420577 amLODIPine (NORVASC) 5 MG TABS 10.0 MG BY MOUTH ONCE DAILY Start: [facility] 2022 2:00:0 0 PM UTC End: 2023 2:00:0 0 PM UTC THU Reynoso MD [id number] on March 20, 2023 4:12:00 PM UTC Active 1267590 ASPIR-LOW 81 MG TBEC 81.0 MG BY MOUTH ONCE DAILY Start: [facility] 2022 2:00:0 0 PM UTC End: 2023 2:00:0 0 PM UTC THU Reynoso MD [id number] on March 20, 2023 4:12:00 PM UTC Active 0237811 furosemide 100mg vial (LASIX) 10 MG/ML SOLN 80.0 MG IV PUSH ONCE DAILY Start: [facility] 2022 2:00:0 0 PM UTC End: 2023 2:00:0 0 PM UTC THU Reynoso MD [id number] on March 20, 2023 4:16:00 PM UTC Active 769926 gabapentin (NEURONTIN) 300 MG CAPS 600.0 MG BY MOUTH THREE TIMES A DAY Start: [facility] 2022 8:00:0 0 PM UTC End: 2023 2:00:0 0 PM UTC THU Reynoso MD [id number] on March 20, 2023 4:16:00 PM UTC Active 0814816 insulin glargine-YF GN 100 UNIT/ML SOLN 12.0 UNT SUBCUT ANEOUS AT BEDTIME Start: [facility] 2022 2:00:0 0 AM UTC End: Zoyar y 2023 2:00:0 0 AM UTC THU Reynoso MD [id number] on March 20, 2023 4:18:00 PM UTC SOCIAL HISTORY SOCIAL HISTORY SNOMED-CT Social History Element Description Effective Dates Offered Cessation Comment UpdatedBy [id number] Current Tobacco smoking status Former Smoker End: February 18, 2023 5:00:00 AM UTC Not Applicable [id number] on March 20, 2023 5:46:03 PM UTC [id number] Historical Tobacco smoking status Current Every Day Smoker Refused [id number] on February 01, 2023 3:49:56 PM UTC SOCIAL HISTORY - Gender Sex: Male SOCIAL HISTORY - Sexual Behavior Sexual Orientation Gender Identity SNOMED-CT Description SNO MED -CT Description Activity Level No of Partners Partner Type UpdatedBy VITAL SIGNS PATIENT VITAL SIGNS This section displays the mo st recent value for each vital sign as of March 22, 2023 2:14:48 AM UTC Loinc Code Vital Sign Activity Date Result Updated By 8302-2 Body height March 20 5:44:57 PM UTC 177.8 cm (70.0 in) [id number] on March 20, 2023 5:44:57 PM UTC 33076-2 Body mass index (BMI ) [Ratio] March 20, 2023 5:44:57 PM UTC 27.833 kg/m2 [id number] on March 20, 2023 5:44:57 PM UTC 3140-1 Body Surface Area Derived From Formula March 20, 2023 5:44:57 PM UTC 2.0605 m2 [id number] on March 20, 2023 5:44:57 PM UTC 8310-5 Body temperature March 21 8:54:00 AM UTC 98.3 [degF] [id number] on March 21, 2023 8:54:30 AM UTC 99505-8 Body weight Measured February 5:44:57 PM UTC 87.997 kg (194.0 lb) [id number] on March 20, 2023 5:44:57 PM UTC 8462-4 Diastolic blood pressure March 21, 2023 8:54:00 AM UTC 70.0 mm[Hg] [id number] on March 21, 2023 8:54:30 AM [facility] 8867-4 Heart rate March 21 8:54:00 AM UT 75 /min [id number] on March 21, 2023 8:54:30 AM [facility] 01591-5 Oxygen saturation in Arterial blood by Pulse oximetry March 21, 2023 8:54:00 AM UT 98.0 % [id number] on March 21, 2023 8:54:30 AM [facility] 9279-1 Respiratory rate March 21 8:54:00 AM UT 16 /min [id number] on March 21, 2023 8:54:30 AM [facility] 74531-2 Spirometry panel March 21 12:32:00 AM UT 8.0 {score} [id number] on March 21, 2023 3:03:02 AM [facility] 8480-6 Systolic blood pressure March 21, 2023 8:54:00 AM UT 138.0 mm[Hg] [id number] on March 21, 2023 8:54:30 AM [facility] PEDIATRIC GROWTH CHART - VITAL SIGNS This section displays Head C ircumference Percentile, Weight for Length Percentile and BMI Percentile Loinc Code Pediatric Measure Age (Months) Result Updat ed By GOALS PATIENT GOALS Goal Assigned Date Updated By *ROBERT VIRAMONTES JR WILL RECE [facility] FOR MED-SURG March 20, 2023 [id number] on February 272022 6:42:03 PM UT *ROBERT VIRAMONTES JR WILL SILVA IN FREE FROM FALLS March 20, 2023 [id number] on March 20, 2023 6:42:04 PM UT *ROBERT VIRAMONTES JR WILL SILVA IN FREE OF VTE March 20, 2023 [id number] on March 20, 2023 6:42:04 PM UT *ROBERT VIRAMONTES JR WILL RECE [facility] FOR VTE March 20, 2023 [id number] on March 20 6:42:04 PM UT *ROBERT VIRAMONTES JR WILL RECI GAGANDEEP ORAL CARE EVERY SHIFT March 20, 2023 [id number] on March 20, 2023 6:42:04 PM UT *ROBERT VIRAMONTES JR MAINTAINS OPTIMAL GAS EXCHANGE March 20, 2023 [id number] on March 20, 2023 6:46:03 PM UT *ROBERT VIRAMONTES JR MAINTAINS ADEQUATE FLUID VOLUME AND ELECTROLYTE BALANCE March 20, 2023 [id number] on [facility] 2022 6:46:04 PM UTC *ROBERT VIRAMONTES JR WILL MAIN TAIN ADEQUATE NUTRITION FOR BODY REQUIREMENTS March 20, 2023 [id number] on March 20, 2023 6:46:04 PM UTC *ROBERT VIRAMONTES JR OR FAMILY VERBALIZES OR DEMONSTRATES KNOWLEDGE OF DIABETES March 20, 2023 [id number] on March 20, 2023 6:46:04 PM UTC *ROBERT VIRAMONTES JR WILL RECE [facility] FOR BRONCHIAL HYGIENE March 20, 2023 [id number] on March 20, 2023 10:09:17 PM UTC *ROBERT VIRAMONTES JR WILL BE A SSESSED FOR CARDIOPULMONARY FUNCTION March 20, 2023 [id number] on March 20 10:09:17 PM UTC *ROBERT VIRAMONTES JR WILL RECE [facility] FOR OXYGEN MONITORING March 20, 2023 [id number] on March 20, 2023 10:09:17 PM UTC HEALTH CONCERNS Problems Concern Status Health Concern problem infor mation not available. Smoking Status Status Years Used Consumed packs p er day Health Concern smoking histo ry information not available. Family History Concern Status Health Concern family histor y information not available. ENCOUNTERS ENCOUNTER INFORMATION Reason for Visit PULMONARY EDEMA Admission March 20, 2023 1:57:[address] [id number] Discharge Patient Not Discharg ed ENCOUNTER DIAGNOSES Notes information is not bartolome ilable. Code System Diagnosis Onset Date Diagnosis information is not available. ABSTRACT DIAGNOSES Code System Diagnosis Updated By Abstract Diagnosis informati on is not available. CARE TEAM Care Teacher Lip Reading Role KEISHA ANDINO Primary Attending KEISHA ANDINO Referring KEISHA ANDINO Admitting PCP DECLINED Primary [facility] [place] [facility] DISCHARGE INSTRUCTION DISCHARGE INSTRUCTION Encounter [id number] Admit Date March 20, 2023 1: 57:00 PM UT HISTORY AND PHYSICAL NOTE HISTORY AND PHYSICAL NOTE Note Title Nurse Intake Note Date Of Service March 20, 2023 5: 50:40 PM UTC Created By [id number] on March 20, 2023 5:50:40 PM UTC Signed By [id number] on March 20, 2023 5:53:58 PM UT Problems Chronic obstructive lung disease Coronary arteriosclerosis Neuropathy Past 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 Headache, FEQUENT Non-alcoholic fatty liver Neuropathy Coronary arteriosclerosis Smoker H/O: depression Jaundice Restless legs Essential hypertension Hyperlipidemia Atelectasis, following procedure done at hospital per patient Congestive heart failure Type 2 diabetes mellitus Chronic obstructive lung disease Coronary artery finding Myocardial infarction @ 2014 Past Surgical History Cholecystectomy in 1998 Closure of amputation stump of right below knee amputation Cardiac catheterization, STENTS Colonoscopy Family History Parents Father Malignant neoplastic disease @ 60 Malignant neoplastic disease Mother Congestive heart failure @ 58 Congestive heart failure Social History tobacco use Former Smoker, 0 yrs, Ended , Smoking Cessation Not Applicable alcohol use No Known Use drug use No Known Use marital status sexual behavior Identifies as Male education Some College Procedures and Surgeries (Current Encounter) None Electronically signed by AMISH Carvalho RN RN on 1253 Note Title Admission History an d Physical Date Of Service March 20, 2023 3: 51:20 PM UTC Created By [id number] on March 20, 2023 3:51:20 PM UTC Signed By [id number] on March 20, 2023 4:01:12 PM UTC Chief Complaint Shortness of air History of Present Illness 57-year-old gentleman with poorly-controlled insulin-dependent diabetes mellitus, related peripheral neuropathy and peripheral vascular disease status post L AKA, tobacco abuse, coronary artery disease, HFrEF (32% 02/18 EDD @ [facility]), AI/MR, essential hypertension, COPD, NAFLD, Chronic Hepatitis B, CKD IIIreturns to emergency department with 24 hour history of severe dyspnea while at rest and certainly made worse with any exertion. He also describes orthopnea. No other exacerbating or alleviating factors. No other associated symptoms. ROS: Denies headache vision changes, focal weakness or numbness rash myalgias new arthralgias chest pain palpitations night sweats weight changes easy bruisability early satiety dyspepsia melena constipation diarrhea hematuria or dysuria. The balance systems have been reviewed and are negative. Past 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 Headache, FEQUENT Non-alcoholic fatty liver Neuropathy Coronary arteriosclerosis Smoker H/O: depression Jaundice Restless legs Essential hypertension Hyperlipidemia Atelectasis, following procedure done at hospital per patient Congestive heart failure Type 2 diabetes mellitus Chronic obstructive lung disease Coronary artery finding Myocardial infarction @ 2014 Past Surgical History Cholecystectomy in 1998 Closure of amputation stump of right below knee amputation Cardiac catheterization, STENTS Colonoscopy Social History alcohol use No Known Use drug use No Known Use marital status sexual behavior Identifies as Male education Some College Family History Parents Father Malignant neoplastic disease @ 60 Malignant neoplastic disease Mother Congestive heart failure @ 58 Congestive heart failure Allergies PENICILLIN - Rash Home Medications amLODIPine (NORVASC) Dose: 10 MG BY MOUTH ONCE DAILY Aspirin 81 Tablet Chewable 81 MG Dose: 1 TAB BY MOUTH ONCE DAILY atorvastatin calcium (LIPITOR) Dose: 40 MG BY MOUTH ONCE DAILY Carvedilol Tablet 6.25 MG Dose: 1 TAB BY MOUTH TWICE A DAY Clopidogrel Bisulfate Tablet 75 MG Dose: 1 TAB BY MOUTH ONCE DAILY Entecavir Tablet 1 MG Dose: 0.5 MG BY MOUTH EVERY 72 HOURS Furosemide Tablet 20 MG Dose: 1 TAB BY MOUTH ONCE DAILY gabapentin (NEURONTIN) Dose: 600 MG BY MOUTH THREE TIMES A DAY Levemir Subcutaneous Solution 100 UNIT/ML Dose: 12 UNT SUBCUTANEOUS AT BEDTIME Nitroglycerin Tablet 0.4 MG Dose: 1 TAB SUBLINGUAL EVERY FIVE MINUTES NEEDED NovoLOG FlexPen Solution Pen-injector 100 UNIT/ML Dose: 5 UNT SUBCUTANEOUS THREE TIMES DAILY WITH MEALS Vital Signs 0933 HR 79 RR 19 BP 145 / 88 O2Sat 99 0830 BP 154 / 92 0819 HR 78 0600 O2Sat 89 0542 T 98.1 RR 28 Physical Exam General Alert, Acute respiratory distress Negative For: Lethargic Neck Jugular Venous Distention Negative For: Bruit Respiratory Symmetry of chest movement, Tachypnea Bilateral Wheezing, Rhonchi Cardiovascular Normal first heart sound, S>1<, Normal second heart sound, S>2< Negative For: Systolic murmur, Tachycardia Abdomen Abdomen soft, Bowel sounds normal Negative For: Abdominal tenderness Musculoskelatal Normal Tone Left AKA Peripheral Vascular/Extremities Brawny discoloration of chronic venous stasis. Trace dorsalis pedis pulse palpable. Left AKA of course. Lab Results 0713 Chemistry TROPONIN 295 (H) 0544 Chemistry SODIUM 145 K 4.5 CHLORIDE 107 CO2 29 A GAP 9.0 GLUCOSE 164 (H) BUN 42 (H) CREA 2.5 (H) BUN/CREA 16.8 EGFR 29 (L) PROTEIN 6.9 ALBUMIN 2.8 (L) CALCIUM 8.7 ZENAIDA COR 9.7 BILI TOT 0.8 AST/SGOT 39 (H) ALT/SGPT 25 ALK PHOS 204 (H) MG 2.1 TROPONIN 316 (H) LACTATE 1.8 44 Special Chemistry PROCALCI <0.05 44 Hematology WBC 11.0 RBC 4.55 HGB 12.9 (L) HCT 40.6 (L) MCV 89.2 MCH 28.4 MCHC 31.8 (L) PLT S 317 RDW 13.8 MPV 11.2 (H) GRAN% 42.7 LYMPH% 47.5 MONO% 6.8 EOS% 2.0 BASO% 0.5 IG% 0.5 GRAN# 4.70 LYMPH# 5.22 MONO# 0.75 EOS# 0.22 BASO# 0.06 IG# 0.05 MANDIFF? No 0544 Triage Meter BNP 2900.0 (H) Procedures and Surgeries None Assessment/Plan 57-year-old gentleman with poorly-controlled insulin-dependent diabetes mellitus, related peripheral neuropathy and peripheral vascular disease status post L AKA, tobacco abuse, coronary artery disease, HFrEF (32% 02/18 EDD @ [facility]), AI/MR, essential hypertension, COPD, NAFLD, Chronic Hepatitis B, CKD III 1. Acute on chronic hypoxemic respiratory failure due to 2. Acute on chronic systolic congestive heart failure 3. COPD with exacerbation 4. Acute renal failure overlying chronic kidney disease stage 3 C due to cardiorenal 5. Valvular heart disease with aortic insufficiency and mitral regurgitation 6. Nonalcoholic fatty liver disease and chronic hepatitis-B 7. Poorly-controlled insulin-dependent diabetes mellitus with neuropathy and peripheral vascular disease and nephropathy 8. Acute non ST segment elevation MO Differential includes atypical infection, STEMI, pulmonary embolism. He had a protracted ER treatment course and although there has been some interval improvement attributable to afterload reduction and diuresis, he is still requiring BiPAP upon arrival to the floor. Continue afterload reduction with hydralazine and long-acting nitrates as well as his home regimen of beta-stacy which may need to be reduced. Will also treat non STEMI with aspirin, Plavix and Lovenox. Although he does not need heart catheterization urgently I do think optimization of his kidney function in the near term and heart catheterization within the next couple weeks is indicated. He will need an aggressive medical regimen to keep him out of trouble between now and then. Time Spent With Patient Time Spent with Patient: [50] Minutes Medication Reconciliation Certification: I have utilized all available immediate resources to obtain, update, or review the patient's current medications. Advance Care Planning Certification: [] I confirmed that the patient's Advance Care Plan is present, code status is documented or surrogate decision make is listed in the patient's medical record. [] The patient's Advance Care Plan is not present because: [] I confirmed today that the patient does not wish or was not able to name a surrogate decision maker or provide an Advance Care Plan Electronically signed by THU RED on 1101 CARE TEAM CARE real estate recruiter Role on Team Status Start Date End Date Update d By THU RED Referring normal March 20, 2023 1:58:15 PM [facility] [id number] on March 20, 2023 1:58:15 PM [facility] THU RED Attending normal March 20, 2023 1:58:15 PM [facility] [id number] on March 20, 2023 1:58:15 PM [facility] THU RED Admitting normal March 20, 2023 1:58:15 PM [facility] [id number] on March 20, 2023 1:58:15 PM [facility] ALBINO HERNANDEZ MD Referring normal March 20, 2023 1:41:30 PM [facility] March 20, 2023 1:57:56 PM [facility] [id number] on March 20, 2023 1:58:15 PM [facility] ALBINO HERNANDEZ MD Attending normal March 20, 2023 1:41:30 PM [facility] March 20, 2023 1:57:56 PM [facility] [id number] on March 20, 2023 1:58:15 PM [facility] ALBINO HERNANDEZ MD Admitting normal March 20, 2023 1:41:30 PM [facility] March 20, 2023 1:57:56 PM [facility] [id number] on March 20, 2023 1:58:15 PM UTC DECLINED PCP PCP normal March 20, 2023 10:38:30 AM UTC March 20, 2023 1:57:56 PM [facility] [id number] on March 20, 2023 1:58:15 PM [facility]
--- OUTSIDE RECORDS SUMMARY | 2023-04-06 10:20 | XMS_ITS | Continuity of Care Document ---
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 Role Phone KEISHA ANDINO Primary Attending KEISHA ANDINO Unavailable KEISHA ANDINO Admitting DECLINED, PCP Primary Care Unavailable ALLERGIES AND ADVERSE REACTIONS ALLERGIES AND ADVERSE REACTIONS Code System Allergy Substance Adverse Reaction Date Reaction (Severity) Comment Status Reported By Updated By [id number] RXNorm PENICILLIN Rash (Moderate) active [id number] on March 20, 2023 4:11:46 PM UTC ASSESSMENTS Congestive heart failure ; Chronic obstructive lung disease ; Coronary arteriosclerosis ; Hypertensive disorder ; Hyperlipidemia ; Myocardial infarction ; Nonalcoholic steatohepatitis ; Diabetes mellitus ; Neuropathy ; FAMILY HISTORY RELATION: Father Status: Cause of : Malignant neoplastic disease Age at : 60 SNOMED-CT Diagnosis Age At Onset [id number] Malignant neoplastic disease RELATION: Mother Status: Cause of : Congestive heart failure Age at : 58 SNOMED-CT Diagnosis Age At Onset [id number] Congestive heart failure FUNCTIONAL STATUS Note Title Nurse Discharge Note Date Of Service March 21, 2023 4: 36:46 PM UTC Created By [id number] on March 21, 2023 4:36:46 PM UTC Signed By [id number] on March 21, 2023 4:37:13 PM UTC FUNCTIONAL STATUS Section: Functional Status Comments: MENTAL STATUS Note Title Nurse Discharge Note Date Of Service March 21, 2023 4: 36:46 PM UTC Created By [id number] on March 21, 2023 4:36:46 PM UTC Signed By [id number] on March 21, 2023 4:37:13 PM UTC MENTAL STATUS Section: Cognitive Status Comments: PROBLEMS PATIENT PROBLEMS Code Description/Comments Status Updated By [id number] Congestive heart failure active euf [id number] on March 20, 2023 3:45:36 PM UT [id number] Chronic obstructive lung disease active [id number] on March 20, 2023 5:51:12 PM UT [id number] Coronary arteriosclerosis active HG E4588 on March 20, 2023 5:51:27 PM UT [id number] Hypertensive disorder active [id number] on March 20, 2023 5:51:38 PM UT [id number] Hyperlipidemia active [id number] on 2022 5:52:17 PM UT [id number] Myocardial infarction active [id number] 8 on March 20, 2023 5:52:38 PM UT [id number] Nonalcoholic steatohepatitis active [id number] on March 20, 2023 5:52:56 PM UT [id number] Diabetes mellitus active [id number] on March 20, 2023 5:53:04 PM UT [id number] Neuropathy active [id number] on 2022 5:53:16 PM [place] RESULTS Patient: WANDER VANN Date of : [birth year] LABORATORY RESULTS ORDER 100: COMP METABOLIC PA LINDA (LOINC: 27581-3) ORDER DATE: March 20, 2023 10:41:00 AM [place] Specimen Source: Serum/Plasm a PERFORMING LAB: [address] [id number] Result Comment: Final Result Date: March 20, 2023 11:11:00 AM [facility] (TECH: [employer]) LOINC TEST FLAG RESULT REFERENCE RANGE UPDA YOAV BY 2951-2 Sodium [Moles/volume ] in Serum or Plasma N 145 mmol/L 136 mmol/L - 145 mmol/L March 20, 2023 11:11:00 AM [facility] (TECH: KSM) 2823-3 Potassium [Moles/volume] in Serum or Plasma N 4.5 mmol/L 3.5 mmol/L - 5.1 mmol/L March 20, 2023 11:11:00 AM [facility] (TECH: KSM) 5-0 Chloride [Moles/volu me] in Serum or Plasma N 107 mmol/L 98 mmol/L - 107 mmol/L March 20, 2023 11:11:00 AM [facility] (TECH: KSM) 2027-9 Carbon dioxide, tota l [Moles/volume] in Serum or Plasma N 29 mmol/L 21 mmol/L - 32 mmol/L March 20, 2023 11:11:00 AM [facility] ([employer]: Measy) 73023-3 Anion gap 3 in Serum or Plasma N 9.0 March 20, 2023 11:11:00 AM [facility] (TECH: Measy) 2345-7 Glucose [Mass/volume ] in Serum or Plasma H 164 mg/dL 70 mg/dL - 110 mg/dL March 20, 2023 11:11:00 AM [facility] (TECH: Measy) 3094-0 Urea nitrogen [Mass/volume] in Serum or Plasma H 42 mg/dL 7 mg/dL - 18 mg/dL March 20, 2023 11:11:00 AM [facility] (TECH: Measy) 2160-0 Creatinine [Mass/volume] in Serum or Plasma H 2.5 mg/dL 0.8 mg/dL - 1.3 mg/dL March 20, 2023 11:11:00 AM [facility] ([employer]: Measy) 3097-3 Urea nitrogen/Creatinine [Mass Ratio] in Serum or Plasma N 16.8 Ratio 9 Ratio - 21 Ratio March 20, 2023 11:11:00 AM [facility] ([employer]: Measy) 07758-3 Glomerular filtratio n rate/1.73 sq M.predicted by Creatinine-based formula (MDRD) L 29 mL/min >60 March 20, 2023 11:11:00 AM [facility] (TECH: Measy) 2885-2 Protein [Mass/volume ] in Serum or Plasma N 6.9 g/dL 6.4 g/dL - 8.2 g/dL March 20, 2023 11:11:00 AM [facility] (TECH: Measy) 1751-7 Albumin [Mass/volume ] in Serum or Plasma L 2.8 g/dL 3.4 g/dL - 5.0 g/dL March 20, 2023 11:11:00 AM [facility] (TECH: Measy) 08351-8 Calcium [Mass/volume ] in Serum or Plasma N 8.7 mg/dL 8.5 mg/dL - 10.1 mg/dL March 20, 2023 11:11:00 AM [facility] (TECH: Measy) 01184-8 Calcium [Mass/volume ] corrected for total protein in Serum or Plasma N 9.7 mg/dL 8.5 mg/dL - 10.1 mg/dL March 20, 2023 11:11:00 AM [facility] (TECH: Measy) 1975-2 Bilirubin.total [Mass/volume] in Serum or Plasma N 0.8 mg/dL 0.4 mg/dL - 1.5 mg/dL March 20, 2023 11:11:00 AM [facility] (TECH: Measy) 1920-8 Aspartate aminotransferase [Enzymatic activity/volume] in Serum or Plasma H 39 U/L 15 U/L - 37 U/L March 20, 2023 11:11:00 AM [facility] (TECH: Measy) 1742-6 Alanine aminotransferase [Enzymatic activity/volume] in Serum or Plasma N 25 U/L 12 U/L - 78 U/L March 20, 2023 11:11:00 AM [facility] (TECH: Measy) 6768-6 Alkaline phosphatase [Enzymatic activity/volume] in Serum or Plasma H 204 U/L 50 U/L - 170 U/L March 20, 2023 11:11:00 AM [facility] (TECH: Measy) ORDER 200: CBC AUTO W DIFF ( LOINC: 65095-8) ORDER DATE: March 20, 2023 10:41:00 AM [place] Specimen Source: Whole Blood PERFORMING LAB: [address] [id number] Result Comment: Final Result Date: March 20, [...] 17.2 g/dL March 20, 2023 10:55:00 AM UTC (TECH: AC) 43098-7 Hematocrit [Volume Fraction] of Blood L 40.6 % 42.0 % - 52.0 % March 20, 2023 10:55:00 AM UTC (TECH: AC) 787-2 Erythrocyte mean corpuscular volume [Entitic volume] by Automated count N 89.2 fl 80 fl - 95 fl March 20, 2023 10:55:00 AM UTC (TECH: AC) 22001-0 Erythrocyte mean corpuscular hemoglobin [Entitic mass] in Blood from Fetus by Automated count N 28.4 pg 27.0 pg - 34.0 pg March 20, 2023 10:55:00 AM UTC (TECH: AC) 68243-0 Erythrocyte mean corpuscular hemoglobin concentration [Mass/volume] in Blood from Fetus by Automated count L 31.8 g/dL 32.0 g/dL - 36.0 g/dL March 20, 2023 10:55:00 AM UTC (TECH: AC) 55359-6 Platelets [#/volume] in Blood N 317 10^3/uL 150 10^3/uL - 450 10^3/uL March 20, 2023 10:55:00 AM UTC (TECH: AC) 96273-6 Erythrocyte distribution width [Ratio] N 13.8 % 12.3 % - 15.1 % March 20, 2023 10:55:00 AM UTC (TECH: AC) 18441-5 Platelet mean volume [Entitic volume] in Blood by Automated count H 11.2 fl 7.4 fl - 10.4 fl March 20, 2023 10:55:00 AM UTC (TECH: AC) 88701-7 Granulocytes/100 leukocytes in Blood by Automated count [...] 20, 2023 10:55:00 AM UTC (TECH: AC) 53353-7 Immature granulocytes [#/volume] in Blood N 0.5 % 0.0 % - 0.8 % March 20, 2023 10:55:00 AM UTC (TECH: AC) 15280-6 Granulocytes [#/volume] in Blood by Automated count [...] 20, 2023 10:55:00 AM UTC (TECH: AC) 70066-4 Immature granulocytes [#/volume] in Blood N 0.05 10^3/uL March 20, 2023 10:55:00 AM UTC (TECH: AC) 48328-2 Manual differential performed [Presence] in Blood N NO March 20, 2023 10:55:00 AM UTC (TECH: AC) ORDER 400: TROPONIN QUANT (L OINC: 88906-0) ORDER DATE: March 20, 2023 10:41:00 AM UTC Specimen Source: Serum/Plasm a PERFORMING LAB: [address] [id number] Result Comment: Final Result Date: March 20, 2023 11:12:00 AM UTC (TECH: KSM) LOINC TEST [place] [address]-1 Troponin I.cardiac panel - Serum or Plasma by High sensitivity method HH 316 ng/L 0 ng/L - 76 ng/L March 20, 2023 11:12:00 AM UTC (TECH: [employer]) ORDER 500: MAGNESIUM (LOINC: 65332-4) ORDER DATE: March 20, 2023 10:41:00 AM UTC Specimen Source: Serum/Plasm a PERFORMING LAB: [address] [id number] Result Comment: Final Result Date: March 20, 2023 11:12:00 AM UTC (TECH: KSM) LOINC TEST [place] [address]-0 Magnesium [Mass/volume] in Serum or Plasma N 2.1 mg/dL 1.8 mg/dL - 2.4 mg/dL March 20, 2023 11:12:00 AM UTC (TECH: KSM) ORDER 600: LACTIC ACID (LOIN C: 65019-0) ORDER DATE: March 20, 2023 10:41:00 AM UTC Specimen Source: Serum/Plasm a PERFORMING LAB: [address] [id number] Result Comment: Final Result Date: March 20, 2023 11:12:00 AM UTC (TECH: KSM) LOINC TEST [place] [address]-0 Lactate [Mass/volume] in Serum or Plasma N 1.8 mmole/L 0.4 mmole/L - 2.0 mmole/L March 20, 2023 11:12:00 AM UTC (TECH: KSM) ORDER 1200: TROPONIN I 1 LARISSA R PROTOCOL (LOINC: 25514-6) ORDER DATE: March 20, 2023 12:10:00 PM UTC Specimen Source: Plasma PERFORMING LAB: [address] [id number] Result Comment: Final Result Date: March 20, 2023 12:39:00 PM UTC (TECH: KSM) LOINC TEST FLAG [place] [address]-8 Troponin I.cardiac panel - Serum or Plasma by High sensitivity method HH 295 ng/L 0 ng/L - 76 ng/L March 20, 2023 12:39:00 PM UTC (TECH: KSM) ORDER 1300: B-TYPE NATRIURET IC PEPTIDE BNP (LOINC: 70468-5) ORDER DATE: March 20, 2023 12:10:00 PM UTC Specimen Source: Whole Blood PERFORMING LAB: [address] [id number] Result Comment: Final Result Date: March 20, 2023 12:34:00 PM UTC (TECH: KSM) LOINC TEST FLAG [place] [address]-1 Natriuretic peptide B [Mass/volume] in Serum or Plasma H 2900.0 pg/mL 0.0 pg/mL - 100 pg/mL March 20, 2023 12:34:00 PM UTC (TECH: KSM) ORDER 1400: PROCALCITONIN (L OINC: 08346-5) ORDER DATE: March 20, 2023 12:11:00 PM UTC Specimen Source: Serum/Plasm a PERFORMING LAB: [address] [id number] Result Comment: Final Result Date: March 20, 2023 12:35:00 PM UTC (TECH: KSM) LOINC TEST FLAG [place] [address]-4 Procalcitonin [Mass/volume] in Serum or Plasma N <0.05 ng/ml 0.00 ng/ml - 0.5 ng/ml March 20, 2023 12:35:00 PM UTC (TECH: KSM) ORDER 3000: CBC AUTO W DIFF (LOINC: 65527-2) ORDER DATE: March 20, 2023 3:49:00 PM UTC Specimen Source: Whole Blood PERFORMING LAB: [address] [id number] Result Comment: Final Result Date: March 21, 2023 11:50:00 AM UTC (TECH: KSM) LOINC TEST FLAG RESULT REFERENCE RANGE UPDA YOAV BY 6690-2 Leukocytes [#/volume] in Blood by Automated count N 8.4 10^3/uL 4.5 10^3/uL - 11.5 10^3/uL March 21, 2023 11:50:00 AM UTC (TECH: KSM) 789-8 Erythrocytes [#/volume] in Blood by Automated count L 3.33 10^6/uL 4.25 10^6/uL - 5.57 10^6/uL March 21, 2023 11:50:00 AM UTC (TECH: KSM) 718-7 Hemoglobin [Mass/volume] in Blood L 9.6 g/dL 13.5 g/dL - 17.2 g/dL March 21, 2023 11:50:00 AM UTC (TECH: Measy) 28789-0 Hematocrit [Volume Fraction] of Blood L 28.8 % 42.0 % - 52.0 % March 21, 2023 11:50:00 AM UTC (TECH: Measy) 787-2 Erythrocyte mean corpuscular volume [Entitic volume] by Automated count N 86.5 fl 80 fl - 95 fl March 21, 2023 11:50:00 AM UTC (TECH: Measy) 62522-0 Erythrocyte mean corpuscular hemoglobin [Entitic mass] in Blood from Fetus by Automated count N 28.8 pg 27.0 pg - 34.0 pg March 21, 2023 11:50:00 AM UTC (TECH: Measy) 30507-1 Erythrocyte mean corpuscular hemoglobin concentration [Mass/volume] in Blood from Fetus by Automated count N 33.3 g/dL 32.0 g/dL - 36.0 g/dL March 21, 2023 11:50:00 AM UTC (TECH: Measy) 01307-0 Platelets [#/volume] in Blood N 194 10^3/uL 150 10^3/uL - 450 10^3/uL March 21, 2023 11:50:00 AM UTC (TECH: Measy) 96631-7 Erythrocyte distribution width [Ratio] N 13.5 % 12.3 % - 15.1 % March 21, 2023 11:50:00 AM UTC (TECH: Measy) 95804-1 Platelet mean volume [Entitic volume] in Blood by Automated count H 11.5 fl 7.4 fl - 10.4 fl March 21, 2023 11:50:00 AM UTC (TECH: Measy) 02631-3 Granulocytes/100 leukocytes in Blood by Automated count H 76.3 % 40 % - 75 % March 21, 2023 11:50:00 AM UTC (TECH: Measy) 736-9 Lymphocytes/100 leukocytes in Blood by Automated count N 15.9 % 15 % - 57 % March 21, 2023 11:50:00 AM UTC (TECH: Measy) 5905-5 Monocytes/100 leukocytes in Blood by Automated count N 7.5 % 4.0 % - 12.0 % March 21, 2023 11:50:00 AM UTC (TECH: KSM) 713-8 Eosinophils/100 leukocytes in Blood by Automated count N 0.1 % 0.0 % - 4.0 % March 21, 2023 11:50:00 AM UTC (TECH: KSM) 706-2 Basophils/100 leukocytes in Blood by Automated count N 0.1 % 0.0 % - 1.0 % March 21, 2023 11:50:00 AM UTC (TECH: KSM) 41871-9 Immature granulocytes [#/volume] in Blood N 0.1 % 0.0 % - 0.8 % March 21, 2023 11:50:00 AM UTC (TECH: KSM) 74528-8 Granulocytes [#/volume] in Blood by Automated count N 6.39 10^3/uL March 21, 2023 11:50:00 AM UTC (TECH: KSM) 731-0 Lymphocytes [#/volume] in Blood by Automated count N 1.33 10^3/uL March 21, 2023 11:50:00 AM UTC (TECH: KSM) 742-7 Monocytes [#/volume] in Blood by Automated count N 0.63 10^3/uL March 21, 2023 11:50:00 AM UTC (TECH: KSM) 711-2 Eosinophils [#/volume] in Blood by Automated count N 0.01 10^3/uL March 21, 2023 11:50:00 AM UTC (TECH: KSM) 704-7 Basophils [#/volume] in Blood by Automated count N 0.01 10^3/uL March 21, 2023 11:50:00 AM UTC (TECH: [employer]) 13687-2 Immature granulocytes [#/volume] in Blood N 0.01 10^3/uL March 21, 2023 11:50:00 AM UTC (TECH: KSM) 13107-7 Manual differential performed [Presence] in Blood N NO March 21, 2023 11:50:00 AM UTC (TECH: KSM) ORDER 3100: COMP METABOLIC P CECILIA (LOINC: 56175-0) ORDER DATE: March 20, 2023 3:49:00 PM UTC Specimen Source: Serum/Plasm a PERFORMING LAB: [address] [id number] Result Comment: Final Result Date: March 21, 2023 11:49:00 AM UT (TECH: Measy) LOINC TEST FLAG RESULT REFERENCE RANGE UPDA YOAV BY 2951-2 Sodium [Moles/volume ] in Serum or Plasma N 139 mmol/L 136 mmol/L - 145 mmol/L March 21, 2023 11:49:00 AM UTC (TECH: Measy) 2823-3 Potassium [Moles/volume] in Serum or Plasma N 4.8 mmol/L 3.5 mmol/L - 5.1 mmol/L March 21, 2023 11:49:00 AM UTC (TECH: Measy) 2075-0 Chloride [Moles/volu me] in Serum or Plasma N 105 mmol/L 98 mmol/L - 107 mmol/L March 21, 2023 11:49:00 AM UT (TECH: Measy) 2027-9 Carbon dioxide, tota l [Moles/volume] in Serum or Plasma N 26 mmol/L 21 mmol/L - 32 mmol/L March 21, 2023 11:49:00 AM [facility] (TECH: Measy) 37350-7 Anion gap 3 in Serum or Plasma N 8.0 March 21, 2023 11:49:00 AM UT (TECH: Measy) 2345-7 Glucose [Mass/volume ] in Serum or Plasma H 135 mg/dL 70 mg/dL - 110 mg/dL March 21, 2023 11:49:00 AM UT (TECH: Measy) 3094-0 Urea nitrogen [Mass/volume] in Serum or Plasma H 65 mg/dL 7 mg/dL - 18 mg/dL March 21, 2023 11:49:00 AM UTC (TECH: Measy) 2160-0 Creatinine [Mass/volume] in Serum or Plasma H 3.3 mg/dL 0.8 mg/dL - 1.3 mg/dL March 21, 2023 11:49:00 AM UTC (TECH: [employer]) 3097-3 Urea nitrogen/Creatinine [Mass Ratio] in Serum or Plasma N 19.7 Ratio 9 Ratio - 21 Ratio March 21, 2023 11:49:00 AM UTC (TECH: Measy) 63324-8 Glomerular filtratio n rate/1.73 sq M.predicted by Creatinine-based formula (MDRD) L 21 mL/min >60 March 21, 2023 11:49:00 AM UT (TECH: Measy) 2885-2 Protein [Mass/volume ] in Serum or Plasma L 5.4 g/dL 6.4 g/dL - 8.2 g/dL March 21, 2023 11:49:00 AM UT (TECH: Measy) 1751-7 Albumin [Mass/volume ] in Serum or Plasma L 2.3 g/dL 3.4 g/dL - 5.0 g/dL March 21, 2023 11:49:00 AM UT (TECH: Measy) 22276-5 Calcium [Mass/volume ] in Serum or Plasma L 8.3 mg/dL 8.5 mg/dL - 10.1 mg/dL March 21, 2023 11:49:00 AM UT (TECH: Measy) 68386-9 Calcium [Mass/volume ] corrected for total protein in Serum or Plasma N 9.7 mg/dL 8.5 mg/dL - 10.1 mg/dL March 21, 2023 11:49:00 AM UT (TECH: Measy) 1975-2 Bilirubin.total [Mass/volume] in Serum or Plasma N 0.5 mg/dL 0.4 mg/dL - 1.5 mg/dL March 21, 2023 11:49:00 AM UT (TECH: Measy) 1920-8 Aspartate aminotransferase [Enzymatic activity/volume] in Serum or Plasma N 26 U/L 15 U/L - 37 U/L March 21, 2023 11:49:00 AM UT (TECH: Measy) 1742-6 Alanine aminotransferase [Enzymatic activity/volume] in Serum or Plasma N 18 U/L 12 U/L - 78 U/L March 21, 2023 11:49:00 AM UT (TECH: Measy) 6768-6 Alkaline phosphatase [Enzymatic activity/volume] in Serum or Plasma N 139 U/L 50 U/L - 170 U/L March 21, 2023 11:49:00 AM UT (TECH: Measy) ORDER 3200: MAGNESIUM (LOINC : 19550-9) ORDER DATE: March 20, 2023 3:49:00 PM UT Specimen Source: Serum/Plasm a PERFORMING LAB: [address] [id number] Result Comment: Final Result Date: March 21, 2023 11:49:00 AM UTC (TECH: KSM) LOINC TEST FLAG [place] [address]-1 Magnesium [Mass/volume] in Serum or Plasma N 2.0 mg/dL 1.8 mg/dL - 2.4 mg/dL March 21, 2023 11:49:00 AM UTC (TECH: KSM) ORDER 3300: GLUCOSE BLD METE R (LOINC: 47102-1) ORDER DATE: March 20, 2023 5:05:00 PM UTC Specimen Source: Whole Blood PERFORMING LAB: [address] [id number] Result Comment: March 20, 2023 5:05:00 PM UTC Test performed by: [id number] ; Instrument: [id number] Final Result Date: March 20, 2023 5:05:00 PM UTC (TECH: HL7) LOINC TEST FLAG [place] [address]-1 Glucose [Mass/volume] in Capillary blood by Glucometer H 167 mg/dl 70 mg/dl - 115 mg/dl March 20, 2023 5:05:00 PM UTC (TECH: HL7) ORDER 3800: GLUCOSE BLD METE R (LOINC: 02745-2) ORDER DATE: March 20, 2023 9:08:00 PM UTC Specimen Source: Whole Blood PERFORMING LAB: [address] [id number] Result Comment: March 20, 2023 9:09:00 PM UTC Test performed by: [id number] ; Instrument: [id number] Final Result Date: March 20, 2023 9:08:00 PM UTC (TECH: HL7) LOINC TEST FLAG [place] [address]-8 Glucose [Mass/volume] in Capillary blood by Glucometer H 351 mg/dl 70 mg/dl - 115 mg/dl March 20, 2023 9:08:00 PM UTC (TECH: HL7) ORDER 4100: GLUCOSE BLD METE R (LOINC: 90261-8) ORDER DATE: March 21, 2023 1:12:00 AM UTC Specimen Source: Whole Blood PERFORMING LAB: [address] [id number] Result Comment: March 21, 2023 1:16:00 AM UTC Test performed by: [id number] ; Instrument: [id number] Final Result Date: March 21, 2023 1:12:00 AM UTC (TECH: HL7) LOINC TEST FLAG [place] [address]-9 Glucose [Mass/volume] in Capillary blood by Glucometer H 418 mg/dl 70 mg/dl - 115 mg/dl March 21, 2023 1:12:00 AM UTC (TECH: HL7) ORDER 4200: GLUCOSE BLD METE R (LOINC: 24216-1) ORDER DATE: March 21, 2023 2:15:00 AM UTC Specimen Source: Whole Blood PERFORMING LAB: [address] [id number] Result Comment: March 21, 2023 2:55:00 AM UTC Test performed by: [id number] ; Instrument: [id number] Final Result Date: March 21, 2023 2:15:00 AM UTC (TECH: HL7) LOINC TEST FLAG [place] [address]-0 Glucose [Mass/volume] in Capillary blood by Glucometer H 393 mg/dl 70 mg/dl - 115 mg/dl March 21, 2023 2:15:00 AM UTC (TECH: HL7) ORDER 4300: GLUCOSE BLD METE R (LOINC: 92505-7) ORDER DATE: March 21, 2023 4:11:00 AM UTC Specimen Source: Whole Blood PERFORMING LAB: [address] [id number] Result Comment: March 21, 2023 8:03:00 AM UTC Test performed by: [id number] ; Instrument: [id number] Final Result Date: March 21, 2023 4:11:00 AM UTC (TECH: HL7) LOINC TEST FLAG [place] [address]-8 Glucose [Mass/volume ] in Capillary blood by Glucometer H 250 mg/dl 70 mg/dl - 115 mg/dl February 4:11:00 AM UTC (TECH: HL7) LABORATORY NARRATIVE RESULTS Information is not available RADIOLOGY RESULTS ORDER 700: CHEST SINGLE VIEW /PORTABLE (LOINC: 96651-2) ORDER DATE: March 20, 2023 10:41:00 AM [facility] PATHOLOGY NARRATIVE RESULTS Information is not available MICROBIOLOGY RESULTS No Micro Labs/Results Exist for Patient BLOOD ADMIN RESULTS Information is not available TREATMENT PLAN DISCHARGE MEDICATIONS Status RXNORM Medication Dose Route Frequency Dates Comments U pdated By Continued 152046 Levemir Subcutaneous Solution 100 UNIT/ML 12 UNT SUBCUTANEOU S AT BEDTIME Prescribe d: March 21, 2023 4:11:04 PM [facility] [id number] on March 21, 2023 4:11:04 PM [facility] Continued 089096 isosorbide mononitrate SR 24HR 60 MG BY MOUTH ONCE DAILY Prescribe d: March 21, 2023 4:11:04 PM [facility] [id number] on March 21, 2023 4:11:04 PM [facility] Continued 3700871 NovoLOG FlexPen Solution Pen-injector 100 UNIT/ML 5 UNT SUBCUTANEOU S THREE TIMES DAILY WITH MEALS Prescribe d: March 21, 2023 4:11:04 PM [facility] [id number] on March 21, 2023 4:11:04 PM [facility] Continued 055849 Gabapentin Oral Tablet 600 MG 600 MG BY MOUTH THREE TIMES A DAY Prescribe d: March 21, 2023 4:11:04 PM [facility] [id number] on March 21, 2023 4:11:04 PM [facility] Continued 818294 Entecavir Oral Tablet 0.5 MG 0.5 GM BY MOUTH EVERY 72 HOURS Prescribe d: March 21, 2023 4:11:04 PM [facility] [id number] on March 21, 2023 4:11:04 PM [facility] Continued 888137 Furosemide Tablet 20 MG 20 MG BY MOUTH ONCE DAILY Prescribe d: March 21, 2023 4:11:04 PM [facility] [id number] on March 21, 2023 4:11:04 PM [facility] Continued 376449 Carvedilol Tablet 6.25 MG 6.25 MG BY MOUTH TWICE A DAY Prescribe d: March 21, 2023 4:11:04 PM [facility] [id number] on March 21, 2023 4:11:04 PM [facility] Continued 436417 Clopidogrel Bisulfate Tablet 75 MG 75 MG BY MOUTH ONCE DAILY Prescribe d: March 21, 2023 4:11:04 PM [facility] [id number] on March 21, 2023 4:11:04 PM [facility] Continued 011768 Nitroglyceri n Tablet 0.4 MG 0.4 MG SUBLINGUAL EVERY FIVE MINUTES NEEDED Prescribe d: March 21, 2023 4:11:04 PM [facility] Max 3 doses [id number] on March 21, 2023 4:11:04 PM [facility] Continued 795553 ASPIR-LOW 81 MG BY MOUTH ONCE DAILY Prescrib e d: March 21, 2023 4:11:04 PM [facility] [id number] on March 21, 2023 4:11:04 PM [facility] Continued 647403 amLODIPine Besylate Oral Tablet 10 MG 10 MG BY MOUTH ONCE DAILY Prescribe d: March 21, 2023 4:11:04 PM [facility] [id number] on March 21, 2023 4:11:04 PM [facility] Continued 677731 atorvastatin calcium (LIPITOR) 40 MG BY MOUTH ONCE DAILY Prescribe d: March 21, 2023 4:11:04 PM [facility] [id number] on March 21, 2023 4:11:04 PM [facility] PATIENT OPEN ORDERS Code System Description Frequency Occurrences Priority [place] [address]-1 [facility] EKG study ONE TIME 0 Stat March 20, 2023 10:41:00 AM [facility] ALBINO HERNANDEZ MD [id number] on March 20, 2023 10:41:00 AM [facility] 600-7 [facility] Bacteria identified in Blood by Culture ONE TIME 0 Stat March 20, 2023 10:42:00 AM [facility] ALBINO HERNANDEZ MD [id number] on March 20, 2023 5:00:00 AM [facility] 600-7 [facility] Bacteria identified in Blood by Culture ONE TIME 0 Stat March 20, 2023 10:42:00 AM [facility] ALBINO HERNANDEZ MD [id number] on March 20, 2023 10:03:00 AM [facility] 81407-3 [facility] Biphasic positive airway pressure (BIPAP) activ ONE TIME 0 Routine March 20, 2023 11:09:00 AM [facility] ALBINO HERNANDEZ MD [id number] on March 20, 2023 11:09:00 AM [facility] 92942-6 [facility] Admitted as an inpatient ONE TIME 0 Stat March 20, 2023 1:55:00 PM [facility] MARLENA Reynoso MD 2256 on March 20, 2023 1:55:00 PM [facility] [id number] [facility] CONSULT CARDIOPULMO NARY OXYGEN ONE TIME 0 Stat March 20, 2023 1:55:00 PM [facility] MARLENA Reynoso MD 2255 on March 20, 2023 1:55:[place] [address]-9 [facility] Provider orders ONE TIME 0 Stat March 20, 2023 1:55:00 PM [facility] MARLENA Reynoso MD 2255 on March 20, 2023 1:55:[place] [address]-9 [facility] Diagnosis ONE TIME 0 Stat March 20, 2023 1:55:00 PM [facility] MARLENA Reynoso MD 2255 on March 20, 2023 1:55:00 PM [place] 8716-3 [facility] Vital signs ONE TIME 0 Stat March 20, 2023 1:55:00 PM [facility] MAR[facility]NA Reynoso MD 2255 on March 20, 2023 1:55:[place] [address]-5 [facility] Current activity level ONE TIME 0 Stat March 20, 2023 1:55:00 PM [facility] MAR[facility]NA Reynoso MD 2255 on March 20, 2023 1:55:[place] [address]-6 [facility] Condition ONE TIME 0 Stat March 20, 2023 1:55:00 PM [facility] MAR[facility] Reynoso MD 2255 on March 20, 2023 1:55:[place] [address]-7 [facility] Diet [Type] ONE TIME 0 Stat March 20, 2023 1:55:00 PM [facility] MAR[facility]NA Reynoso MD 2255 on March 20, 2023 1:55:[place] [address]-6 [facility] Admission Information ONE TIME 0 Routine March 20, 2023 3:45:00 PM [facility]U Reynoso MD [id number] on March 20, 2023 3:49:00 PM [place] 500460-5 [facility] Cardiopulmo nary resuscitati on orders ONE TIME 0 Routine March 20, 2023 3:45:00 PM [place] THU Reynoso MD [id number] on March 20, 2023 3:49:[place] [address]-9 [facility] Provider orders ONE TIME 0 Routine March 20, 2023 3:45:00 PM [place] THU Reynoso MD [id number] on March 20, 2023 3:49:00 PM UT 871342-1 [facility] Inspiratory reserve [Volume] Respiratory system ONE TIME 0 Routine March 20, 2023 3:45:00 PM [facility] THU Reynoso MD [id number] on March 20, 2023 3:49:00 PM [facility] 53392-6 [facility] Diet [Type] ONE TIME 0 Routine March 20, 2023 3:45:00 PM [facility] THU Reynoso MD [id number] on March 20, 2023 3:49:00 PM [facility] 71425-4 [facility] History of Tobacco use ONE TIME 0 Routine March 20, 2023 3:45:00 PM [facility] THU Reynoso MD [id number] on March 20, 2023 3:49:00 PM [facility] [id number] [facility] CONSULT CARDIOPULMO NARY OXYGEN ONE TIME 0 Routine March 20, 2023 3:45:00 PM [facility] THU Reynoso MD [id number] on March 20, 2023 3:49:00 PM [facility] CONSCR [facility] CONSULT CARDIAC REHAB ONE TIME 0 Routine March 20, 2023 6:39:00 PM [facility] THU Reynoso MD [id number] on March 20, 2023 6:39:00 PM [facility] REQNUT [facility] CONSULT END FINDER TWISTING DEPARTMENT ONE TIME 0 Routine March 20, 2023 6:39:00 PM [facility] THU Reynoso MD [id number] on March 20, 2023 6:39:00 PM [facility] CONSPR [facility] CONSULT PULMONARY REHAB ONE TIME 0 Routine March 20, 2023 6:39:00 PM [facility] THU Reynoso MD [id number] on March 20, 2023 6:39:00 PM [facility] CONCOPD [facility] COPD EDUCATION FROM EXITCARE ONE TIME 0 Routine March 20, 2023 6:39:00 PM [facility] THU Reynoso MD [id number] on March 20, 2023 6:39:00 PM [facility] [id number] [facility] (C) OXYGEN PER DAY ONE TIME 0 Routine March 20, 2023 11:03:00 PM [facility] THU Reynoso MD [id number] on March 20, 2023 11:03:00 PM [facility] 80663-2 [facility] Risk for venous thromboembo lism ONE TIME 0 Routine March 21, 2023 12:07:00 AM [facility] THU Reynoso MD [id number] on March 21, 2023 12:07:00 AM [facility] 91463-5 [facility] Collection method - Specimen ONE TIME 0 Routine March 21, 2023 10:00:00 AM [facility] THU Reynoso MD [id number] on March 21, 2023 10:55:00 AM [facility] 15060-3 [facility] Risk for venous thromboembo lism ONE TIME 0 Routine March 21, 2023 1:15:00 PM [facility] THU Reynoso MD [id number] on March 21, 2023 1:15:00 PM [facility] 87568-9 [facility] Provider orders ONE TIME 0 Routine March 21, 2023 4:11:00 PM [facility] THU Reynoso MD [id number] on March 21, 2023 4:12:00 PM [facility] 66917-6 [facility] History of Tobacco use ONE TIME 0 Routine March 21, 2023 4:11:00 PM [facility] THU Reynoso MD [id number] on March 21, 2023 4:12:00 PM [facility] 87091-2 [facility] Diet [Type] ONE TIME 0 Routine March 21, 2023 4:11:00 PM [facility] THU Reynoso MD [id number] on March 21, 2023 4:12:00 PM [facility] 96744-6 [facility] Discharge diagnosis Narrative ONE TIME 0 Routine March 21, 2023 4:11:00 PM [facility] THU Reynoso MD [id number] on March 21, 2023 4:12:00 PM [facility] SCHEDULED PROCEDURES Code System Description Status Scheduled Date Upd ated By Patient scheduled procedure information is not available. MEDICATIONS HOME MEDICATIONS Status RXNORM Medication Dose Route Frequency Dates Comments R eported By Updated By Active [id number] atorvastatin calcium (LIPITOR) 40.0 MG PO DAILY Last Dose: [id number] on March 20, 2023 11:00:32 AM [facility] Active 217880 Carvedilol Tablet 6.25 MG 6.25 MG PO BID Last Dose: [id number] on March 20, 2023 4:23:07 PM [facility] Active 790506 Clopidogrel Bisulfate Tablet 75 MG 75.0 MG PO DAILY Last Dose: [id number] on March 20, 2023 4:23:17 PM [facility] Active 337102 Furosemide Tablet 20 MG 20.0 MG PO DAILY Last Dose: [id number] on March 20, 2023 4:24:22 PM [facility] Active 587373 Nitroglycerin Tablet 0.4 MG 0.4 MG SUBLING [id number] Last Dose: Max 3 doses [id number] on March 21, 2023 4:10:16 PM [place] Active [id number] NovoLOG FlexPen Solution Pen-injector 100 UNIT/ML 5.0 UNT SUBCUT TIDWM Last Dose: [id number] on March 20, 2023 3:44:54 PM UT Active 280730 Levemir Subcutaneous Solution 100 UNIT/ML 12.0 UNT SUBCUT BEDTIME Last Dose: PATIENT [id number] on March 20, 2023 3:44:49 PM [place] Active 834675 amLODIPine Besylate Oral Tablet 10 MG 10.0 MG PO DAILY Last Dose: [id number] on March 20, 2023 4:22:09 PM UT Active 1633737 ASPIR-LOW 81.0 MG PO DAILY Last Dose: [id number] on March 20, 2023 4:22:42 PM UT Active 320580 Entecavir Oral Tablet 0.5 MG 0.5 GM PO Q72H Last Dose: [id number] on March 20, 2023 4:23:59 PM UT Active 735069 Gabapentin Oral Tablet 600 MG 600.0 MG PO TID Last Dose: [id number] on March 20, 2023 4:24:48 PM [facility] DISCHARGE MEDICATIONS Status RXNORM Medication Dose Route Frequency Dates Comments Physic maia Updated By Continue d 643647 Levemir Subcutaneous Solution 100 UNIT/ML 12.0 UNT SUBCUTA NEOUS AT BEDTIME Prescri bed: [facility] 2022 4:11:04 PM [place] THU Reynoso MD PHY [id number] on March 21, 2023 4:11:04 PM [facility] Continue d 630667 isosorbide mononitrate SR 24HR 60.0 MG BY MOUTH ONCE DAILY Prescri bed: [facility] 2022 4:11:04 PM [place] THU Reynoso MD PHY [id number] on March 21, 2023 4:11:04 PM [facility] Continue d 5863224 NovoLOG FlexPen Solution Pen-injector 100 UNIT/ML 5.0 UNT SUBCUTA NEOUS THREE TIMES DAILY WITH MEALS Prescri bed: [facility] 2022 4:11:04 PM [facility] THU Reynoso MD PHY [id number] on March 21, 2023 4:11:04 PM UTC Continue d 021960 Gabapentin Oral Tablet 600 MG 600.0 MG BY MOUTH THREE TIMES A DAY Prescri bed: [facility] 2022 4:11:04 PM [place] THU Reynoso MD PHY [id number] on March 21, 2023 4:11:04 PM UTC Continue d 465998 Entecavir Oral Tablet 0.5 MG 0.5 GM BY MOUTH EVERY 72 HOURS Prescri bed: [facility] 2022 4:11:04 PM [place] THU Reynoso MD PHY [id number] on March 21, 2023 4:11:04 PM UTC Continue d 613544 Furosemide Tablet 20 MG 20.0 MG BY MOUTH ONCE DAILY Prescri bed: [facility] 2022 4:11:04 PM [place] THU Reynoso MD, PHY [id number] on March 21, 2023 4:11:04 PM UT Continue d 137053 Carvedilol Tablet 6.25 MG 6.25 MG BY MOUTH TWICE A DAY Prescri bed: [facility] 2022 4:11:04 PM [place] THU Reynoso MD PHY [id number] on March 21, 2023 4:11:04 PM UTC Continue d 756873 Clopidogrel Bisulfate Tablet 75 MG 75.0 MG BY MOUTH ONCE DAILY Prescri bed: [facility] 2022 4:11:04 PM [place] THU Reynoso MD PHY [id number] on March 21, 2023 4:11:04 PM UTC Continue d 386676 Nitroglyceri n Tablet 0.4 MG 0.4 MG SUBLING UAL EVERY FIVE MINUTES NEEDED Prescri bed: [facility] 2022 4:11:04 PM UT Max 3 doses THU Reynoso MD PHY [id number] on March 21, 2023 4:11:04 PM UTC Continue d 104416 ASPIR-LOW 81.0 MG BY MOUTH ONCE DAILY Prescri bed: [facility] 2022 4:11:04 PM [place] THU Reynoso MD PHY [id number] on March 21, 2023 4:11:04 PM UTC Continue d 395902 amLODIPine Besylate Oral Tablet 10 MG 10.0 MG BY MOUTH ONCE DAILY Prescri bed: [facility] 2022 4:11:04 PM [place] THU Reynoso MD PHY [id number] on March 21, 2023 4:11:04 PM [facility] Continue d 622447 atorvastatin calcium (LIPITOR) 40.0 MG BY MOUTH ONCE DAILY Prescri bed: [facility] 2022 4:11:04 PM [facility] THU Reynoso MD PHY [id number] on March 21, 2023 4:11:04 PM [facility] INPATIENT MEDICATIONS Status RXNORM Medication Dose Route Frequency Rate Quantity Dates Comments Physician Updated By Discont inued [id number] nitroglycer in SL (NITROSTAT) 0.4 MG SUBL 0.4 MG SUBLIN GUAL ONE TIME ONLY Start: [facility] 2022 10:40: 00 AM [place] End: [facility] 2022 10:40: 00 AM [facility] ALBINO HERNANDEZ MD INTERFAC ED on March 20, 2023 10:40:00 AM [place] Discont inued [id number] LORazepam (ATIVAN) 2 MG/ML SOLN 2.0 MG IV PUSH ONE TIME ONLY Start: [facility] er 2022 10:44: 00 AM UT End: [facility] 2022 10:44: 00 AM [place] ALBINO HERNANDEZ MD INTERFAC ED on March 20, 2023 10:43:00 AM UT Discont inued [id number] furosemide 40mg vial (LASIX) 10 MG/ML SOLN 40.0 MG IV PUSH ONE TIME ONLY Start: [facility] er 2022 10:46: 00 AM UTC End: [facility] 2022 10:46: 00 AM [place] ALBINO HERNANDEZ MD INTERFAC ED on March 20, 2023 10:45:00 AM UT Discont inued [id number] amLODIPine (NORVASC) 5 MG TABS 5.0 MG BY MOUTH ONE TIME ONLY Start: [facility] 2022 12:02: 00 PM UTC End: [facility] 2022 12:02: 00 PM [place] ALBINO HERNANDEZ MD INTERFAC ED on March 20, 2023 12:01:00 PM UT Discont inued [id number] furosemide 40mg vial (LASIX) 10 MG/ML SOLN 40.0 MG IV PUSH ONE TIME ONLY Start: [facility] 2022 12:02: 00 PM UTC End: [facility] 2022 12:02: 00 PM UTC ALBINO HERNANDEZ MD INTERFAC ED on March 20, 2023 12:02:00 PM UTC Discont inued 117699 hydrALAZINE (APRESOLINE ) 25 MG TABS 25.0 MG BY MOUTH ONE TIME ONLY Start: [facility] 2022 12:48: 00 PM UTC End: [facility] 2022 12:48: 00 PM UTC ALBINO HERNANDEZ MD INTERFAC ED on March 20, 2023 12:47:00 PM UTC Discont inued [id number] metolazone (ZAROXOLYN) 5 MG TABS 5.0 MG BY MOUTH ONE TIME ONLY Start: [facility] 2022 1:06:0 0 PM UTC End: [facility] 2022 1:06:0 0 PM UTC ALBINO HERNANDEZ MD INTERFAC ED on March 20, 2023 1:05:00 PM UTC Discont inued 768764 losartan potassium (COZAAR) 50 MG TABS 50.0 MG BY MOUTH ONE TIME ONLY Start: [facility] 2022 1:06:0 0 PM UTC End: [facility] 2022 1:06:0 0 PM UTC ALBINO HERNANDEZ MD INTERFAC ED on March 20, 2023 1:06:00 PM UTC Discont inued 826356 isosorbide mononitrate SR 24HR 60 MG TB24 60.0 MG BY MOUTH ONE TIME ONLY Start: [facility] 2022 1:19:0 0 PM UTC End: [facility] 2022 1:19:0 0 PM UTC ALBINO HERNANDEZ MD INTERFAC ED on March 20, 2023 1:18:00 PM UTC Active 249707 carvedilol (COREG) 6.25 MG TABS 6.25 MG BY MOUTH TWICE A DAY Start: [facility] 2022 2:00:0 0 AM UTC End: [facility] 2022 5:00:0 0 PM UTC THU Reynoso MD [id number] on March 20, 2023 3:44:00 PM UTC Discont inued Aspirin 81 Tablet Chewable 81 MG 1.0 TAB BY MOUTH ONCE DAILY Start: [facility] 2022 2:00:0 0 PM UTC End: [facility] 2022 2:00:0 0 PM UTC THU Reynoso MD [id number] on March 20, 2023 4:12:00 PM UTC Discont inued gabapentin (NEURONTIN) 600.0 MG BY MOUTH THREE TIMES A DAY Start: [facility] 2022 8:00:0 0 PM UTC End: [facility] 2022 8:00:0 0 PM UTC THU Reynoso MD [id number] on March 20, 2023 4:16:00 PM UTC Active 856208 atorvastati n calcium (LIPITOR) 40 MG TABS 40.0 MG BY MOUTH ONCE DAILY Start: [facility] 2022 2:00:0 0 PM UTC End: [facility] 2022 5:00:0 0 PM UTC THU Reynoso MD [id number] on March 20, 2023 3:44:00 PM UTC Discont inued amLODIPine (NORVASC) 10.0 MG BY MOUTH ONCE DAILY Start: [facility] 2022 2:00:0 0 PM UTC End: [facility] 2022 2:00:0 0 PM UTC THU Reynoso MD [id number] on March 20, 2023 4:12:00 PM UTC Active 903886 clopidogrel (PLAVIX) 75 MG TABS 75.0 MG BY MOUTH ONCE DAILY Start: [facility] 2022 2:00:0 0 PM UTC End: [facility] 2022 5:00:0 0 PM UTC THU Reynoso MD [id number] on March 20, 2023 3:44:00 PM UTC Discont inued Levemir Subcutaneou s Solution 100 UNIT/ML 12.0 UNT SUBCUT ANEOUS AT BEDTIME Start: [facility] 2022 2:00:0 0 AM UTC End: [facility] 2022 2:00:0 0 AM UTC THU Reynoso MD [id number] on March 20, 2023 4:18:00 PM UTC Discont inued [id number] insulin lispro(DAVID LOG) 100 UNIT/ML SOLN 1.0 UNT SUBCUT ANEOUS SLIDING SCALE NEEDED Start: [facility] 2022 3:45:0 0 PM UTC End: [facility] 20[facility] 4:11:0 4 PM UTC THU Reynoso MD [id number] on March 20, 2023 3:45:00 PM UTC Discont inued 3002676 dextrose SYR (D50) PFS 50 % SOLN 50.0 ML IV PUSH NEEDED Start: [facility] 2022 3:45:0 0 PM UTC End: [facility] 2022 4:11:0 4 PM UTC THU Reynoso MD [id number] on March 20, 2023 3:45:00 PM UTC Discont inued MONOJECT FLUSH SYRINGE 0.9 % SOLN 10.0 ML IV FLUSH TWICE A DAY Start: [facility] 2022 2:00:0 0 AM UTC End: [facility] 2022 4:11:0 4 PM UTC THU Reynoso MD [id number] on March 20, 2023 3:47:00 PM UTC Discont inued 866083 hydrALAZINE (APRESOLINE ) 20 MG/ML SOLN 10.0 MG IV PUSH EVERY FOUR HOURS NEEDED Start: [facility] 2022 3:45:0 0 PM UTC End: [facility] 2022 4:11:0 4 PM UTC THU Reynoso MD [id number] on March 20, 2023 3:47:00 PM UTC Discont inued [id number] LABETALOL 5 MG/ML SOLN 10.0 MG IV PUSH EVERY TWO HOURS NEEDED Start: [facility] 2022 3:45:0 0 PM UTC End: [facility] 2022 4:11:0 4 PM UTC THU Reynoso MD [id number] on March 20, 2023 3:47:00 PM UTC Discont inued 623895 ACETAMINOPH EN 325 MG TABS 650.0 MG BY MOUTH EVERY SIX HOURS NEEDED Start: [facility] 2022 3:45:0 0 PM UTC End: [facility] 2022 4:11:0 4 PM UTC THU Reynoso MD [id number] on March 20, 2023 3:47:00 PM UTC Discont inued [id number] traZODone (DESYREL) 50 MG TABS 50.0 MG BY MOUTH AT BEDTIME NEEDED Start: [facility] 2022 3:45:0 0 PM UTC End: [facility] 2022 4:11:0 4 PM UTC THU Reynoso MD [id number] on March 20, 2023 3:47:00 PM UTC Discont inued 871211 enoxaparin (LOVENOX) 30 MG/0.3ML SOSY 30.0 MG SUBCUT ANEOUS ONCE DAILY Start: [facility] 2022 2:00:0 0 PM UTC End: [facility] 2022 4:11:0 4 PM UTC THU Reynoso MD [id number] on March 20, 2023 3:47:00 PM UTC Discont inued [id number] ondansetron (ZOFRAN) 4 MG/2ML SOLN 4.0 MG IV PUSH EVERY EIGHT HOURS NEEDED Start: [facility] 2022 3:45:0 0 PM UTC End: [facility] 2022 4:11:0 4 PM UTC THU Reynoso MD [id number] on March 20, 2023 3:47:00 PM UTC Discont inued 260804 ondansetron (ZOFRAN) 4 MG TBDP 4.0 MG SUBLIN GUAL EVERY EIGHT HOURS NEEDED Start: [facility] 2022 3:45:0 0 PM UTC End: [facility] 2022 4:11:0 4 PM UTC THU Reynoso MD [id number] on March 20, 2023 3:47:00 PM UTC Discont inued [id number] furosemide 40mg vial (LASIX) 10 MG/ML SOLN 80.0 MG IV PUSH ONCE DAILY Start: [facility] 2022 2:00:0 0 PM UTC End: [facility] 2022 2:00:0 0 PM UTC THU Reynoso MD [id number] on March 20, 2023 4:16:00 PM UTC Active 787951 isosorbide mononitrate SR 24HR 60 MG TB24 60.0 MG BY MOUTH ONCE DAILY Start: [facility] 2022 3:48:0 0 PM UTC End: [facility] 2022 5:00:0 0 PM UTC THU Reynoso MD [id number] on March 20, 2023 3:48:00 PM UTC Discont inued [id number] hydrALAZINE (APRESOLINE ) 25 MG TABS 50.0 MG BY MOUTH THREE TIMES A DAY Start: [facility] 2022 3:48:0 0 PM UTC End: [facility] 2022 4:11:0 4 PM UTC THU Reynoso MD [id number] on March 20, 2023 3:48:00 PM UTC Discont inued [id number] amLODIPine (NORVASC) 5 MG TABS 10.0 MG BY MOUTH ONCE DAILY Start: [facility] 2022 2:00:0 0 PM UTC End: [facility] 2022 4:11:0 4 PM UTC THU Reynoso MD [id number] on March 20, 2023 4:12:00 PM UTC Active 3519408 ASPIR-LOW 81 MG TBEC 81.0 MG BY MOUTH ONCE DAILY Start: [facility] 2022 2:00:0 0 PM UTC End: [facility] 2022 5:00:0 0 PM UTC THU Reynoso MD [id number] on March 20, 2023 4:12:00 PM UTC Discont inued [id number] furosemide 100mg vial (LASIX) 10 MG/ML SOLN 80.0 MG IV PUSH ONCE DAILY Start: [facility] 2022 2:00:0 0 PM UTC End: [facility] 2022 2:00:0 0 PM UTC THU Reynoso MD [id number] on March 21, 2023 1:19:00 PM UTC Discont inued [id number] gabapentin (NEURONTIN) 300 MG CAPS 600.0 MG BY MOUTH THREE TIMES A DAY Start: [facility] 2022 8:00:0 0 PM UTC End: [facility] 2022 4:11:0 4 PM UTC THU Reynoso MD [id number] on March 20, 2023 4:16:00 PM UTC Discont inued 7257045 insulin glargine-YF GN 100 UNIT/ML SOLN 12.0 UNT SUBCUT ANEOUS AT BEDTIME Start: [facility] 2022 2:00:0 0 AM UTC End: [facility] 2022 2:06:2 6 PM UTC THU Reynoso MD [id number] on March 21, 2023 2:06:00 PM UTC Discont inued [id number] furosemide 40mg vial (LASIX) 10 MG/ML SOLN 80.0 MG IV PUSH ONCE DAILY Start: [facility] 2022 2:00:0 0 PM UTC End: [facility] 2022 2:06:2 6 PM UTC THU Reynoso MD [id number] on March 21, 2023 2:06:00 PM UTC Discont inued 9951720 insulin glargine-YF GN 100 UNIT/ML SOLN 20.0 UNT SUBCUT ANEOUS AT BEDTIME Start: [facility] 2022 4:11:0 4 PM UTC End: [facility] 2022 4:11:0 4 PM UTC THU Reynoso MD [id number] on March 21, 2023 2:05:00 PM UTC Active *PATIENT INFORMATION MISC 1.0 EA SEE COMMEN TS NEEDED Start: [facility] 2022 4:11:0 0 PM UTC End: [facility] 2022 5:00:0 0 PM UTC THU Reynoso MD [id number] on March 21, 2023 4:12:00 PM UTC SOCIAL HISTORY SOCIAL HISTORY SNOMED-CT Social History Element Description Effective Dates Offered Cessation Comment UpdatedBy [id number] Current Tobacco smoking status Former Smoker End: February 18, 2023 5:00:00 AM UTC Not Applicable [id number] on March 21, 2023 3:04:25 PM UT [id number] Historical Tobacco smoking status Current Every Day Smoker Refused [id number] on February 01, 2023 3:49:56 PM [place] SOCIAL HISTORY - Gender Sex: Male SOCIAL HISTORY - Sexual Behavior Sexual Orientation Gender Identity SNOMED-CT Description SNO MED -CT Description Activity Level No of Partners Partner Type UpdatedBy VITAL SIGNS PATIENT VITAL SIGNS This section displays the mo st recent value for each vital sign as of March 21, 2023 6:00:19 PM [place] Loinc Code Vital Sign Activity Date Result Updated By 8302-2 Body height March 20 5:44:57 PM UTC 177.8 cm (70.0 in) [id number] on March 20, 2023 5:44:57 PM UTC 91666-3 Body mass index (BMI ) [Ratio] March 20, 2023 5:44:57 PM UTC 27.833 kg/m2 [id number] on March 20, 2023 5:44:57 PM UTC 3140-1 Body Surface Area Derived From Formula March 20, 2023 5:44:57 PM UTC 2.0605 m2 [id number] on March 20, 2023 5:44:57 PM UTC 8310-5 Body temperature March 21 12:09:00 PM UTC 97.4 [degF] [id number] on March 21, 2023 12:18:01 PM UTC 90003-5 Body weight Measured February 5:44:57 PM UTC 87.997 kg (194.0 lb) [id number] on March 20, 2023 5:44:57 PM UTC 8462-4 Diastolic blood pressure March 21, 2023 12:09:00 PM UTC 71.0 mm[Hg] [id number] on March 21, 2023 12:18:01 PM UTC 8867-4 Heart rate March 21 1:36:00 PM UTC 82 /min [id number] on March 21, 2023 1:36:14 PM UTC 30421-1 Oxygen saturation in Arterial blood by Pulse oximetry March 21, 2023 1:36:00 PM UTC 96.0 % [id number] on March 21, 2023 1:36:14 PM UTC 9279-1 Respiratory rate March 21 1:36:00 PM UTC 14 /min [id number] on March 21, 2023 1:36:14 PM UTC 53786-9 Spirometry panel March 21 1:36:00 PM UTC 10.0 {score} [id number] on March 21, 2023 1:36:14 PM UTC 8480-6 Systolic blood pressure March 21, 2023 12:09:00 PM UTC 140.0 mm[Hg] [id number] on March 21, 2023 12:18:01 PM UTC PEDIATRIC GROWTH CHART - VITAL SIGNS This section displays Head C ircumference Percentile, Weight for Length Percentile and BMI Percentile Loinc Code Pediatric Measure Age (Months) Result Updat ed By GOALS PATIENT GOALS Goal Assigned Date Updated By *ROBERT VIRAMONTES JR MAINTAINS OPTIMAL GAS EXCHANGE March 20, 2023 [id number] on March 20, 2023 6:46:03 PM UT *ROBERT VIRAMONTES JR OR FAMILY VERBALIZES OR DEMONSTRATES KNOWLEDGE OF DIABETES March 20, 2023 [id number] on March 20, 2023 6:46:04 PM UTC *ROBERT VIRAMONTES JR WILL RECE [facility] FOR BRONCHIAL HYGIENE March 20, 2023 [id number] on March 20, 2023 10:09:17 PM UT *ROBERT VIRAMONTES JR WILL BE A SSESSED FOR CARDIOPULMONARY FUNCTION March 20, 2023 [id number] on March 20 023 10:09:17 PM UT *ROBERT VIRAMONTES JR WILL RECE [facility] FOR OXYGEN MONITORING March 20, 2023 [id number] on March 20, 2023 10:09:17 PM [place] HEALTH CONCERNS Problems Concern Status Health Concern problem infor mation not available. Smoking Status Status Years Used Consumed packs p er day Health Concern smoking histo ry information not available. Family History Concern Status Health Concern family histor y information not available. ENCOUNTERS ENCOUNTER INFORMATION Reason for Visit PULMONARY EDEMA Admission March 20, 2023 1:57:[address] [address] Discharge March 21, 2023 5:00:00 PM [facility] DISCHARGED TO HOME OR SELF CARE ENCOUNTER DIAGNOSES Notes information is not bartolome ilable. Code System Diagnosis Onset Date Diagnosis information is not available. ABSTRACT DIAGNOSES Code System Diagnosis Updated By Abstract Diagnosis informati on is not available. CARE TEAM Care Monotype Machinist Role KEISHA ANDINO Primary Attending KEISHA ANDINO Referring KEISHA ANDINO Admitting PCP DECLINED Primary Care HOSPITAL DISCHARGE INSTRUCTION DISCHARGE INSTRUCTION Encounter [id number] Admit Date March 20, 2023 1: 57:00 PM [place] Discharge Date March 21, 2023 5: 00:00 PM [facility] HISTORY AND PHYSICAL NOTE HISTORY AND PHYSICAL NOTE Note Title Nurse Intake Note Date Of Service March 20, 2023 5: 50:40 PM UT Created By [id number] on March 20, 2023 5:50:40 PM UT Signed By [id number] on March 20, 2023 5:53:58 PM UT [...] 2023 3: 51:20 PM UTC Created By [id number] on March 20, 2023 3:51:20 PM UTC Signed By [id number] on March 20, 2023 4:01:12 PM UTC Chief Complaint Shortness of air History of Present Illness 57-year-old gentleman with poorly-controlled insulin-dependent diabetes mellitus, related peripheral neuropathy and peripheral vascular disease status post L AKA, tobacco abuse, coronary artery disease, HFrEF (32% 02/18 EDD @ [facility]), AI/MR, essential hypertension, COPD, NAFLD, [...] artery disease, HFrEF (32% 02/18 EDD @ [facility]), AI/MR, essential hypertension, COPD, NAFLD, [...] nephropathy 8. Acute non ST segment elevation [place] Differential includes atypical infection, STEMI, pulmonary embolism. [...] Electronically signed by THU RED on 1101 DISCHARGE SUMMARY NOTE DISCHARGE SUMMARY NOTE Note Title Nurse Discharge Note Date Of Service March 21, 2023 4: 36:46 PM UTC Created By [id number] on March 21, 2023 4:36:46 PM UTC Signed By [id number] on March 21, 2023 4:37:13 PM UTC Cognitive Status Alert, Oriented x4 Functional Status Difficulty performing ADL's Discharge Diagnosis Neuropathy Diabetes mellitus Nonalcoholic steatohepatitis Myocardial infarction Hyperlipidemia Hypertensive disorder Coronary arteriosclerosis Chronic obstructive lung disease Congestive heart failure Electronically signed by AMISH Mitchell RN on 1137 CARE TEAM CARE size maker Role on Team Status Start Date End Date Update d By THU RED Referring normal March 20, 2023 1:58:15 PM [place] March 21, 2023 5:00:00 PM [facility] [id number] on March 20, 2023 1:58:15 PM [facility] THU RED Attending normal March 20, 2023 1:58:15 PM [facility] March 21, 2023 5:00:00 PM [facility] [id number] on March 20, 2023 1:58:15 PM [facility] THU RED Admitting normal March 20, 2023 1:58:15 PM [facility] March 21, 2023 5:00:00 PM [facility] [id number] on March 20, 2023 1:58:15 PM UTC ALBINO HERNANDEZ MD Referring normal March 20, 2023 1:41:30 PM UTC March 20, 2023 1:57:56 PM UTC [id number] on March 20, 2023 1:58:15 PM UTC ALBINO HERNANDEZ MD Attending normal March 20, 2023 1:41:30 PM UTC March 20, 2023 1:57:56 PM UTC [id number] on March 20, 2023 1:58:15 PM UTC ALBINO HERNANDEZ MD Admitting normal March 20, 2023 1:41:30 PM UTC March 20, 2023 1:57:56 PM UTC [id number] on March 20, 2023 1:58:15 PM UTC DECLINED PCP PCP normal March 20, 2023 10:38:30 AM UTC March 20, 2023 1:57:56 PM UTC [id number] on March 20, 2023 1:58:15 PM UTC
--- OUTSIDE RECORDS SUMMARY | 2023-04-06 10:21 | XMS_ITS | Continuity of Care Document ---
Author Name Unknown Address [address] [place] [phone] Organization [facility] Phone Care Team Providers Care Stock Roller Name Role Phone JOSE ORLANDO Admitting DECLINED, PCP Primary Care Unavailable JOSE ORLANDO Unavailable JOSE ORLANDO Primary Attending ALLERGIES AND ADVERSE REACTIONS ALLERGIES AND ADVERSE REACTIONS Code System Allergy Substance Adverse Reaction Date Reaction (Severity) Comment Status Reported By Updated By [id number] RXNorm PENICILLIN Rash (Moderate) active [id number] on March 23, 2023 8:30:57 AM UT FAMILY HISTORY RELATION: Father Status: Cause of : Malignant neoplastic disease Age at : 60 SNOMED-CT Diagnosis Age At Onset [id number] Malignant neoplastic disease RELATION: Mother Status: Cause of : Congestive heart failure Age at : 58 SNOMED-CT Diagnosis Age At Onset [id number] Congestive heart failure RESULTS Patient: WANDER JONES RAY Date of : May [birth year] LABORATORY RESULTS ORDER 200: ARTERIAL BLOOD GA S (LOINC: 22396-6) ORDER DATE: March 23, 2023 8:27:00 AM UTC Specimen Source: Whole Blood PERFORMING LAB: [address] [id number] Result Comment: Final Result Date: March 23, 2023 8:45:00 AM UTC (TECH: TS1) LOINC TEST [place] [address]-9 Specimen source subject [Type] N ARTERIAL March 23, 2023 8:45:00 AM UTC (TECH: TS1) 71565-2 Arterial patency Wrist artery --pre arterial puncture [...] 23, 2023 8:45:00 AM UTC (TECH: TS1) 56307-6 Bicarbonate [Moles/volume] standard in Arterial blood H 28.2 mEq/L 21 mEq/L - 25 mEq/L March 23, 2023 8:45:00 AM UTC (TECH: TS1) 35131-6 Base excess standard in Arterial blood by calculation N 4.1 March 23, 2023 8:45:00 AM UTC (TECH: TS1) 2714-4 Fractional oxyhemoglobin in Arterial blood N 100 % March 23, 2023 8:45:00 AM UTC (TECH: TS1) 3150-0 Inhaled oxygen concentration N 100.0 % March 23, 2023 8:45:00 AM UTC (TECH: TS1) 69838-6 Oxygen gas flow Oxygen delivery system N BIPAP March 23, 2023 8:45:00 AM UTC (TECH: TS1) 20223-0 Room temperature N 37.0 Dec emb 2022 8:45:00 AM UTC (TECH: TS1) ORDER 300: B-TYPE NATRIURETI C PEPTIDE BNP (LOINC: 92502-8) ORDER DATE: March 23, 2023 8:27:00 AM UT Specimen Source: Whole Blood PERFORMING LAB: [address] [id number] Result Comment: Final Result Date: March 23, 2023 9:19:00 AM UT (TECH: RJV) LOINC TEST FLAG [place] [address]-3 Natriuretic peptide B [Mass/volume] in Serum or Plasma H 1770.0 pg/mL 0.0 pg/mL - 100 pg/mL March 23, 2023 9:19:00 AM UTC (TECH: RJV) ORDER 600: CBC AUTO W DIFF ( LOINC: 48542-6) ORDER DATE: March 23, 2023 8:27:00 AM UTC Specimen Source: Whole Blood PERFORMING LAB: [address] [id number] Result Comment: Final Result Date: March 23, 2023 8:59:00 AM UTC (TECH: [employer]) LOINC TEST FLAG RESULT REFERENCE RANGE UPDA YOAV BY 6690-2 Leukocytes [#/volume] in Blood by Automated count H 14.7 10^3/uL 4.5 10^3/uL - 11.5 10^3/uL March 23, 2023 8:59:00 AM UTC (TECH: [employer]) 789-8 Erythrocytes [#/volume] in Blood by Automated count N 4.37 10^6/uL 4.25 10^6/uL - 5.57 10^6/uL March 23, 2023 8:59:00 AM UTC (TECH: [employer]) 718-7 Hemoglobin [Mass/volume] in Blood L 12.3 g/dL 13.5 g/dL - 17.2 g/dL March 23, 2023 8:59:00 AM UTC (TECH: [employer]) 07481-5 Hematocrit [Volume Fraction] of Blood L 39.5 % 42.0 % - 52.0 % March 23, 2023 8:59:00 AM UTC (TECH: [employer]) 787-2 Erythrocyte mean corpuscular volume [Entitic volume] by Automated count N 90.4 fl 80 fl - 95 fl March 23, 2023 8:59:00 AM UTC (TECH: [employer]) 70349-5 Erythrocyte mean corpuscular hemoglobin [Entitic mass] in Blood from [place]etus by Automated count N 28.1 pg 27.0 pg - 34.0 pg March 23, 2023 8:59:00 AM UTC (TECH: [employer]) 08179-9 Erythrocyte mean corpuscular hemoglobin concentration [Mass/volume] in Blood from Fetus by Automated count L 31.1 g/dL 32.0 g/dL - 36.0 g/dL March 23, 2023 8:59:00 AM UTC (TECH: [employer]) 04699-3 Platelets [#/volume] in Blood N 337 10^3/uL 150 10^3/uL - 450 10^3/uL March 23, 2023 8:59:00 AM UTC (TECH: [employer]) 32404-3 Erythrocyte distribution width [Ratio] N 13.9 % 12.3 % - 15.1 % March 23, 2023 8:59:00 AM UTC (TECH: RJV) 71761-4 Platelet mean volume [Entitic volume] in Blood by Automated count H 11.6 fl 7.4 fl - 10.4 fl March 23, 2023 8:59:00 AM UTC (TECH: RJV) 36365-8 Granulocytes/100 leukocytes in Blood by Automated count [...] 23, 2023 8:59:00 AM UTC (TECH: RJV) 52768-3 Immature granulocytes [#/volume] in Blood N 0.5 % 0.0 % - 0.8 % March 23, 2023 8:59:00 AM UTC (TECH: RJV) 03023-9 Granulocytes [#/volume] in Blood by Automated count [...] March 23, 2023 8:59:00 AM UT (TECH: [employer]) 704-7 Basophils [#/volume] in Blood by Automated count N 0.07 10^3/uL March 23, 2023 8:59:00 AM UT (TECH: [employer]) 47901-8 Immature granulocytes [#/volume] in Blood N 0.08 10^3/uL March 23, 2023 8:59:00 AM UT (TECH: [employer]) 68468-6 Manual differential performed [Presence] in Blood N NO March 23, 2023 8:59:00 AM UT (TECH: [employer]) ORDER 700: COMP METABOLIC PA LINDA (LOINC: 87445-0) ORDER DATE: March 23, 2023 8:27:00 AM UT Specimen Source: Plasma PERFORMING LAB: [address] [id number] Result Comment: Final Result Date: March 23, 2023 9:13:00 AM UT (TECH: [employer]) LOINC TEST FLAG RESULT REFERENCE RANGE UPDA YOAV BY 2951-2 Sodium [Moles/volume ] in Serum or Plasma N 143 mmol/L 136 mmol/L - 145 mmol/L March 23, 2023 9:13:00 AM UT (TECH: [employer]) 2823-3 Potassium [Moles/volume] in Serum or Plasma N 4.7 mmol/L 3.5 mmol/L - 5.1 mmol/L March 23, 2023 9:13:00 AM UT (TECH: [employer]) 5-0 Chloride [Moles/volu me] in Serum or Plasma N 105 mmol/L 98 mmol/L - 107 mmol/L March 23, 2023 9:13:00 AM UT (TECH: [employer]) 8-9 Carbon dioxide, tota l [Moles/volume] in Serum or Plasma N 30 mmol/L 21 mmol/L - 32 mmol/L March 23, 2023 9:13:00 AM UT (TECH: [employer]) 15636-5 Anion gap 3 in Serum or Plasma N 8.0 March 23, 2023 9:13:00 AM UT (TECH: [employer]) 2345-7 Glucose [Mass/volume ] in Serum or Plasma H 287 mg/dL 70 mg/dL - 110 mg/dL March 23, 2023 9:13:00 AM [facility] (TECH: [employer]) 3094-0 Urea nitrogen [Mass/volume] in Serum or Plasma H 67 mg/dL 7 mg/dL - 18 mg/dL March 23, 2023 9:13:00 AM [facility] (TECH: [employer]) 2160-0 Creatinine [Mass/volume] in Serum or Plasma H 3.4 mg/dL 0.8 mg/dL - 1.3 mg/dL March 23, 2023 9:13:00 AM [facility] (TECH: [employer]) 3097-3 Urea nitrogen/Creatinine [Mass Ratio] in Serum or Plasma N 19.7 Ratio 9 Ratio - 21 Ratio March 23, 2023 9:13:00 AM [facility] ([employer]: [employer]) 60953-9 Glomerular filtratio n rate/1.73 sq M.predicted by Creatinine-based formula (MDRD) L 20 mL/min >60 March 23, 2023 9:13:00 AM [facility] (TECH: [employer]) 2885-2 Protein [Mass/volume ] in Serum or Plasma N 7.0 g/dL 6.4 g/dL - 8.2 g/dL March 23, 2023 9:13:00 AM [facility] (TECH: [employer]) 1751-7 Albumin [Mass/volume ] in Serum or Plasma L 3.1 g/dL 3.4 g/dL - 5.0 g/dL March 23, 2023 9:13:00 AM [facility] ([employer]: [employer]) 68813-7 Calcium [Mass/volume ] in Serum or Plasma N 8.7 mg/dL 8.5 mg/dL - 10.1 mg/dL March 23, 2023 9:13:00 AM [facility] (TECH: [employer]) 67198-6 Calcium [Mass/volume ] corrected for total protein in Serum or Plasma N 9.4 mg/dL 8.5 mg/dL - 10.1 mg/dL March 23, 2023 9:13:00 AM [facility] (TECH: [employer]) 1975-2 Bilirubin.total [Mass/volume] in Serum or Plasma N 0.6 mg/dL 0.4 mg/dL - 1.5 mg/dL March 23, 2023 9:13:00 AM [facility] (TECH: RJV) 1920-8 Aspartate aminotransferase [Enzymatic activity/volume] in Serum or Plasma H 48 U/L 15 U/L - 37 U/L March 23, 2023 9:13:00 AM UT (TECH: [employer]) 1742-6 Alanine aminotransferase [Enzymatic activity/volume] in Serum or Plasma N 31 U/L 12 U/L - 78 U/L March 23, 2023 9:13:00 AM UT (TECH: [employer]) 6768-6 Alkaline phosphatase [Enzymatic activity/volume] in Serum or Plasma H 232 U/L 50 U/L - 170 U/L March 23, 2023 9:13:00 AM UT (TECH: [employer]) ORDER 800: CK MB (LOINC: 326 73-6) ORDER DATE: March 23, 2023 8:27:00 AM UT Specimen Source: Plasma PERFORMING LAB: [place] [id number] Result Comment: Final Result Date: March 23, 2023 9:13:00 AM [facility] (TECH: [employer]) LOINC TEST [place] [address]-9 Creatine kinase.MB [Enzymatic activity/volume] in Serum or Plasma N 2.3 ng/mL 0.0 ng/mL - 3.6 ng/mL March 23, 2023 9:13:00 AM UT (TECH: [employer]) ORDER 900: D-DIMER QUANTITAT ADAM (LOINC: 7799-0) ORDER DATE: March 23, 2023 8:27:00 AM UT Specimen Source: Plasma PERFORMING LAB: [address] [id number] Result Comment: Final Result Date: March 23, 2023 9:12:00 AM UT (TECH: [employer]) LOINC TEST FLAG RESULT REFERENCE RANGE UPDA YOAV BY 7799-0 Fibrin D-dimer [Units/volume] in Platelet poor plasma HH 1467.26 ng/mL 0 ng/mL - 500 ng/mL March 23, 2023 9:12:00 AM UT (TECH: RJV) ORDER 1000: LACTIC ACID (PARI NC: 67767-4) ORDER DATE: March 23, 2023 8:27:00 AM UT Specimen Source: Serum/Plasm a PERFORMING LAB: [place] [id number] Result Comment: Final Result Date: March 23, 2023 9:19:00 AM UTC (TECH: RJV) LOINC TEST [place] [address]-4 Lactate [Mass/volume] in Serum or Plasma H 2.1 mmole/L 0.4 mmole/L - 2.0 mmole/L March 23, 2023 9:19:00 AM UTC (TECH: RJV) ORDER 1100: PT PROTHROMBIN T VINCENT W INR (LOINC: 27636-0) ORDER DATE: March 23, 2023 8:27:00 AM UTC Specimen Source: Plasma PERFORMING LAB: [address] [id number] Result Comment: Final Result Date: March 23, 2023 8:59:00 AM UTC (TECH: RJV) LOINC TEST [place] [address]-7 INR in Platelet poor plasma or blood by Coagulation assay N 10.0 seconds 9.1 seconds - 12.0 seconds March 23, 2023 8:59:00 AM UTC (TECH: RJV) 6301-6 INR in Platelet poor plasma by Coagulation assay N 0.91 0.9 - 1.1 March 23, 2023 8:59:00 AM UTC (TECH: RJV) ORDER 1200: PTT PARTIAL THRO MB TIME (LOINC: 79891-8) ORDER DATE: March 23, 2023 8:27:00 AM UTC Specimen Source: Plasma PERFORMING LAB: [address] [id number] Result Comment: Final Result Date: March 23, 2023 8:59:00 AM UTC (TECH: RJV) LOINC TEST [place] [address]-6 Activated partial thromboplastin time (aPTT) in Platelet poor plasma by Coagulation assay L 20.5 seconds 24.5 seconds - 32.8 seconds March 23, 2023 8:59:00 AM UTC (TECH: RJV) ORDER 1300: TROPONIN QUANT ( LOINC: 19672-5) ORDER DATE: March 23, 2023 8:27:00 AM UTC Specimen Source: Plasma PERFORMING LAB: [address] [id number] Result Comment: Final Result Date: March 23, 2023 9:14:00 AM UTC (TECH: RJV) LOINC TEST [place] [address]-8 Troponin I.cardiac panel - Serum or Plasma by High sensitivity method HH 138 ng/L 0 ng/L - 76 ng/L March 23, 2023 9:14:00 AM UTC (TECH: [employer]) ORDER 1400: INFLUENZA A/B SC REEN (LOINC: 65283-8) ORDER DATE: March 23, 2023 8:27:00 AM UTC Specimen Source: Swab PERFORMING LAB: [address] [id number] Result Comment: Final Result Date: March 23, 2023 9:11:00 AM UTC (TECH: [employer]) LOINC TEST [place] [address]-2 Influenza virus A Ag [Presence] in Nose N negative NEGATIVE March 23, 2023 9:11:00 AM UTC (TECH: [employer]) 80385-5 Haemophilus influenzae B Ag [Presence] in Serum N negative NEGATIVE March 23, 2023 9:11:00 AM UTC (TECH: [employer]) 41556-4 Internal control result N PASS PASS March 23, 2023 9:11:00 AM UTC (TECH: [employer]) ORDER 1500: UA AND MICRO/CUL T IF INDICATED (LOINC: 08095-9) ORDER DATE: March 23, 2023 8:27:00 AM UTC Specimen Source: URINE PERFORMING LAB: [address] [id number] Result Comment: Final Result Date: March 23, 2023 9:47:00 AM UTC (TECH: [employer]) LOINC TEST FLAG RESULT REFERENCE RANGE UPDA YOAV BY 5778-6 Color of Urine N STRAW YELLOW Decem 2022 9:47:00 AM UTC (TECH: RJV) 5767-9 Appearance of Urine N CLEAR CLEAR March 23, 2023 9:47:00 AM UTC (TECH: RJV) 5792-7 Glucose [Mass/volume] in Urine by Test strip N 100 NORMAL March 23, 2023 9:47:00 AM UTC (TECH: RJV) 11526-4 Bilirubin.total [Mass/volume] in Urine by Automated test strip N NEGATIVE NEGATIVE March 23, 2023 9:47:00 AM UTC (TECH: RJV) 5797-6 Ketones [Mass/volume] in Urine by Test strip N NEGATIVE NEGATIVE March 23, 2023 9:47:00 AM UTC (TECH: [employer]) 2965-2 Specific gravity of Urine N 1.010 1.005 - 1.035 March 23, 2023 9:47:00 AM UTC (TECH: [employer]) 35088-9 Erythrocytes [#/volume] in Urine by Automated test strip N 25 (1+) /mcL NEGATIVE March 23, 2023 9:47:00 AM UTC (TECH: [employer]) 64593-5 pH of Urine by Automated test strip N 6.00 5.0 - 7.5 March 23, 2023 9:47:00 AM UTC (TECH: [employer]) 60438-8 Protein [Presence] in Urine by Test strip N 30 (1+) mg/dL NEGATIVE March 23, 2023 9:47:00 AM UTC (TECH: [employer]) 54982-7 Urobilinogen [Mass/volume] in Urine by Automated test strip N NORM NORMAL March 23, 2023 9:47:00 AM UTC (TECH: [employer]) 29400-4 Nitrate [Presence] in Urine N NEGATIVE NEGATIVE March 23, 2023 9:47:00 AM UTC (TECH: [employer]) 25964-9 Leukocytes [#/volume] in Urine by Test strip N NEGATIVE NEGATIVE March 23, 2023 9:47:00 AM UTC (TECH: [employer]) 96520-0 Other elements in Urine sediment N NOT REQUIRED March 23, 2023 9:47:00 AM UTC (TECH: [employer]) 31735-7 Microscopic observation [Identifier] in Urine sediment by Light microscopy N YES March 23, 2023 9:47:00 AM UTC (TECH: [employer]) 54877-8 Erythrocytes [#/area] in Urine sediment by Microscopy high power field N 1-5 0-3 March 23, 2023 9:47:00 AM UTC (TECH: [employer]) 5821-4 Leukocytes [#/area] in Urine sediment by Microscopy high power field N NONE SEEN NONE SEEN March 23, 2023 9:47:00 AM UTC (TECH: [employer]) 28957-2 Epithelial cells.squamous [#/area] in Urine sediment by Microscopy high power field N NONE SEEN NONE SEEN March 23, 2023 9:47:00 AM UTC (TECH: [employer]) 5769-5 Bacteria [#/area] in Urine sediment by Microscopy high power field N NONE SEEN NONE SEEN March 23, 2023 9:47:00 AM UTC (TECH: RJV) ORDER 1600: SARS-COV-2 SOLAN A IN HOUSE (LOINC: 05194-7) ORDER DATE: March 23, 2023 8:27:00 AM UTC Specimen Source: Nasopharyng eal PERFORMING LAB: [place] [id number] Result Comment: Final Result Date: March 23, 2023 9:57:00 AM UTC (TECH: RJV) LOINC TEST FLAG [place] [address]-5 SARS-CoV-2 (COVID-19) RNA [Presence] in Respiratory specimen by MAE with probe detection N NEGATIVE NEGATIVE March 23, 2023 9:57:00 AM UTC (TECH: RJV) ORDER 1900: ALCOHOL QUANT (L OINC: 5645-7) ORDER DATE: March 23, 2023 8:29:00 AM UTC Specimen Source: Serum/Plasm a PERFORMING LAB: [place] [id number] Result Comment: Final Result Date: March 23, 2023 9:14:00 AM UTC (TECH: RJV) LOINC TEST FLAG RESULT REFERENCE RANGE UPDA YOAV BY 5645-7 Ethanol [Mass/volume] in Urine N <3 mg/dL 0 mg/dL - 10 mg/dL March 23, 2023 9:14:00 AM UTC (TECH: RJV) ORDER 2100: TROPONIN I 1 LARISSA R PROTOCOL (LOINC: 14163-7) ORDER DATE: March 23, 2023 8:31:00 AM UTC Specimen Source: Plasma PERFORMING LAB: [address] [id number] Result Comment: Final Result Date: March 23, 2023 9:50:00 AM UTC (TECH: RJV) LOINC TEST [place] [address]-5 Troponin I.cardiac panel - Serum or Plasma by High sensitivity method HH 135 ng/L 0 ng/L - 76 ng/L March 23, 2023 9:50:00 AM UTC (TECH: RJV) ORDER 2200: URINE DRUG SCREE N - MEDTOX (LOINC: 49541-4) ORDER DATE: March 23, 2023 9:15:00 AM UTC Specimen Source: URINE PERFORMING LAB: [address] [id number] Result Comment: Final Result Date: March 23, 2023 9:48:00 AM UTC (TECH: RJV) LOINC TEST FLAG RESULT REFERENCE RANGE UPDA YOAV BY 3530-3 Tetrahydrocannabinol [Mass/volume] in Urine N NEGATIVE NEGATIVE March 23, 2023 9:48:00 AM UTC (TECH: RJV) 3937-0 Phencyclidine [Mass/ volume] in Urine N NEGATIVE NEGATIVE March 23, 2023 9:48:00 AM UTC (TECH: RJV) 3398-5 Cocaine [Mass/volume] in Urine N NEGATIVE NEGATIVE March 23, 2023 9:48:00 AM UTC (TECH: RJV) 11607-0 Methylenedioxymetham phetamine [Mass/volume] in Urine N NEGATIVE NEGATIVE March 23, 2023 9:48:00 AM UTC (TECH: RJV) 8220-6 Opiates [Mass/volume] in Urine N NEGATIVE NEGATIVE March 23, 2023 9:48:00 AM UTC (TECH: RJV) 13735-5 Amphetamine [Mass/volume] in Urine N NEGAT ADAM NEGATIVE March 23, 2023 9:48:00 AM UTC (TECH: RJV) 9428-4 Benzodiazepines [Mas s/volume] in Urine N NEGATIVE NEGATIVE March 23, 2023 9:48:00 AM UTC (TECH: RJV) 50748-2 Tricyclic antidepres sants [Mass/volume] in Urine N NEGATIVE NEGATIVE March 23, 2023 9:48:00 AM UTC (TECH: RJV) 3774-7 Methadone [Mass/volume] in Urine N NEGATIV E NEGATIVE March 23, 2023 9:48:00 AM UTC (TECH: RJV) 9426-8 Barbiturates [Mass/volume] in Urine N NEGA TIVE NEGATIVE March 23, 2023 9:48:00 AM UTC (TECH: RJV) 44294-4 Oxycodone [Mass/volume] in Urine N NEGATIV E NEGATIVE March 23, 2023 9:48:00 AM UTC (TECH: RJV) 3415-7 Buprenorphine [Mass/ volume] in Urine N NEGATIVE NEGATIVE March 23, 2023 9:48:00 AM UT (TECH: HUGH) LABORATORY NARRATIVE RESULTS Information is not available [...] Priority [place] [address]-3 LOINC EKG study ONE TIME 0 Stat March 23, 2023 8:26:00 AM [facility] JOSE [id number] on March 23, 2023 8:26:00 AM [facility] 600-7 LOINC Bacteria identified in Blood by Culture ONE TIME 0 Stat March 23, 2023 8:27:00 AM [facility] 5011 on March 23, 2023 8:27:00 AM [facility] 600-7 LOINC Bacteria identified in Blood by Culture ONE TIME 0 Stat March 23, 2023 8:27:00 AM [facility] 5011 on March 23, 2023 8:27:00 AM [facility] 58024-6 [facility] Chest X-ray AP portable single view ONE TIME 0 Stat March 23, 2023 8:27:00 AM [facility] [id number] on March 23, 2023 8:38:00 AM [facility] 59578-8 [facility] EKG study ONE TIME 0 Stat March 23, 2023 8:31:00 AM [facility] 5011 on March 23, 2023 8:31:00 AM [facility] 71111-3 [facility] Lactate [Moles/volum e] in Plasma venous ONE TIME 0 Routine March 23, 2023 11:15:00 AM [facility] [id number] on March 23, 2023 9:20:00 AM [facility] 38786-1 [facility] Clinical sepsis symptoms present [ESRD] ONE TIME 0 Routine March 23, 2023 9:19:00 AM [facility] DSRULE on March 23, 2023 9:19:00 AM [facility] SCHEDULED PROCEDURES Code System Description Status Scheduled Date Upd ated By Patient scheduled procedure information is not available. MEDICATIONS HOME MEDICATIONS Status RXNORM Medication Dose Route Frequency Dates Comments R eported By Updated By Active 180884 amLODIPine Besylate Tablet 10 MG 10.0 MG PO DAILY Last Dose: [id number] on March 23, 2023 8:30:58 AM [facility] Active ASPIR-LOW 81.0 MG PO DAILY Last Dose: [id number] on March 23, 2023 8:30:59 AM [facility] Active 447845 atorvastatin calcium (LIPITOR) 40.0 MG PO DAILY Last Dose: [id number] on March 23, 2023 8:30:59 AM [facility] Active 192887 Carvedilol Tablet 6.25 MG 6.25 MG PO BID Last Dose: [id number] on March 23, 2023 8:30:59 AM [facility] Active 897706 Clopidogrel Bisulfate Tablet 75 MG 75.0 MG PO DAILY Last Dose: [id number] on March 23, 2023 8:31:00 AM [facility] Active 171540 Entecavir Tablet 0.5 MG 0.5 GM PO Q72H Last Dose: [id number] on March 23, 2023 8:31:00 AM [facility] Active 309122 Furosemide Tablet 20 MG 20.0 MG PO DAILY Last Dose: [id number] on March 23, 2023 8:31:00 AM [facility] Active 494583 Gabapentin Tablet 600 MG 600.0 MG PO TID Last Dose: [id number] on March 23, 2023 8:31:00 AM [facility] Active 632680 isosorbide mononitrate SR 24HR 60.0 MG PO DAILY Last Dose: [id number] on March 23, 2023 8:31:00 AM [facility] Active 681829 Levemir Solution 100 UNIT/ML 12.0 UNT SUBCUT BEDTIME Last Dose: [id number] on March 23, 2023 8:31:00 AM [facility] Active 377547 Nitroglycerin Tablet 0.4 MG 0.4 MG SUBLING [id number] Last Dose: Max 3 doses [id number] on March 23, 2023 8:31:00 AM [facility] Active 9239225 NovoLOG FlexPen Solution Pen-injector 100 UNIT/ML 5.0 UNT SUBCUT TIDWM Last Dose: [id number] on March 23, 2023 8:31:01 AM [facility] DISCHARGE MEDICATIONS Status RXNORM Medication Dose Route Frequency Dates Comments Physic maia Updated By No Discharge Medication Info rmation Available INPATIENT MEDICATIONS Status RXNORM Medication Dose Route Frequency Rate Quantity Dates Comments Physician Updated By Discont inued aspirin childrens chewable 81 MG CHEW 81.0 MG BY MOUTH ONE TIME ONLY Start: [facility] 2022 9:18:0 0 AM UTC End: [facility] 20[facility] 9:18:0 0 [facility] March [facility], [facility] 9:17:00 AM UTC Discont inued 7697335 sodium chloride MINI-BAG PLUS 0.9 % 100 ML MBP KEMI 100.0 ML INTRAV ENOUS ONE TIME ONLY Start: [facility] 2022 9:48:0 0 AM UTC End: [facility] 2022 9:48:0 0 AM UTC [facility] on March 23, 2023 9:46:00 AM UTC Discont inued [id number] cefTRIAXone (ROCEPHIN) 2 GM SOLR 2.0 GM ONE TIME ONLY Start: [facility] 2022 9:48:0 0 AM UTC End: [facility] 2022 9:48:0 0 AM UTC [facility] on March 23, 2023 9:46:00 AM UTC Discont inued 0686720 cefepime (MAXIPIME) 1 GM SOLR 1.0 GM ONE TIME ONLY Start: [facility] 2022 9:48:0 0 AM UTC End: [facility] 2022 9:48:0 0 [facility] March 23, 2023 9:47:00 AM [facility] SOCIAL HISTORY SOCIAL HISTORY SNOMED-CT Social History Element Description Effective Dates Offered Cessation Comment UpdatedBy [id number] Historical Tobacco smoking status Former Smoker End: February 18, 2023 5:00:00 AM UT Not Applicable [id number] on March 21, 2023 3:04:25 PM UT [id number] Historical Tobacco smoking status Current Every Day Smoker Refused [id number] on February 01, 2023 3:49:56 PM UT SOCIAL HISTORY - Gender Sex: Male SOCIAL HISTORY - Sexual Behavior Sexual Orientation Gender Identity SNOMED-CT Description SNO MED -CT Description Activity Level No of Partners Partner Type UpdatedBy VITAL SIGNS PATIENT VITAL SIGNS This section displays the mo st recent value for each vital sign as of March 24, 2023 2:14:48 AM [facility] Loinc Code Vital Sign Activity Date Result Updated By 8310-5 Body temperature March 23 8:22:00 AM UTC 97.8 [degF] [id number] on March 23, 2023 8:27:15 AM UTC 8462-4 Diastolic blood pressure March 23, 2023 8:30:00 AM UTC 90.0 mm[Hg] [id number] on March 23, 2023 9:15:27 AM [place] 8867-4 Heart rate March 23 8:22:00 AM UTC 98 /min [id number] on March 23, 2023 8:27:15 AM [facility] 80792-6 Oxygen saturation in Arterial blood by Pulse oximetry March 23, 2023 8:22:00 AM UTC 100.0 % [id number] on March 23, 2023 8:27:15 AM [facility] 9279-1 Respiratory rate March 23 8:22:00 AM UTC 24 /min [id number] on March 23, 2023 8:27:15 AM [place] 8480-6 Systolic blood pressure March 23, 2023 8:30:00 AM UTC 164.0 mm[Hg] [id number] on March 23, 2023 9:15:27 AM [facility] PEDIATRIC GROWTH [...] BREATH Admission March 23, 2023 8:16:[address] [address] Discharge Patient Not Discharg ed ENCOUNTER DIAGNOSES Notes information is not bartolome ilable. Code System Diagnosis Onset Date Diagnosis information is not available. ABSTRACT DIAGNOSES Code System Diagnosis Updated By Abstract Diagnosis informati on is not available. CARE TEAM Care Stock Roller Role JOSE ORLANDO Admitting PCP DECLINED Primary Care JOSE ORLANDO Referring JOSE ORLANDO Primary Attending CARE TEAM CARE information assurance officer Role on Team Status Start Date End Date Update d By DARION GARCIA DO Referring normal February 8:22:48 AM [facility] [id number] on March 23, 2023 8:22:48 AM [facility] DARION GARCIA DO Attending normal February 8:22:48 AM [facility] [id number] on March 23, 2023 8:22:48 AM [facility] DARION GARCIA DO Admitting normal February 8:22:47 AM [facility] [id number] on March 23, 2023 8:22:48 AM [facility] DECLINED PCP PCP normal March 23 8:17:17 AM [facility] [facility] [id number] on March 23, 2023 8:22:48 AM [facility]
--- OUTSIDE RECORDS SUMMARY | 2023-04-06 10:21 | XMS_ITS | Continuity of Care Document ---
Author Name Unknown Address [address], [place] [id number] Organization [facility] Phone Care Team Providers Care Junior Copywriter Name Role Phone KEISHA ANDINO Primary Attending KEISHA ANDINO Unavailable KEISHA ANDINO Admitting DECLINED, PCP Primary Care Unavailable ALLERGIES AND ADVERSE REACTIONS ALLERGIES AND ADVERSE REACTIONS Code System Allergy Substance Adverse Reaction Date Reaction (Severity) Comment Status Reported By Updated By [id number] RXNorm PENICILLIN Rash (Moderate) active [id number] on March 23, 2023 8:30:57 AM UTC ASSESSMENTS Congestive heart failure ; Chronic obstructive lung disease ; Coronary arteriosclerosis ; Hypertensive disorder ; Hyperlipidemia ; Myocardial infarction ; Nonalcoholic steatohepatitis ; Diabetes mellitus ; Neuropathy ; FAMILY HISTORY RELATION: Father Status: Cause of : Malignant neoplastic disease Age at : 60 SNOMED-CT Diagnosis Age At Onset [id number] Malignant neoplastic disease RELATION: Mother Status: Cause of : Congestive heart failure Age at : 58 SNOMED-CT Diagnosis Age At Onset [id number] Congestive heart failure FUNCTIONAL STATUS Note Title Nurse Discharge Note Date Of Service March 21, 2023 4: 36:46 PM UTC Created By [id number] on March 21, 2023 4:36:46 PM UTC Signed By [id number] on March 21, 2023 4:37:13 PM UTC FUNCTIONAL STATUS Section: Functional Status Comments: MENTAL STATUS Note Title Nurse Discharge Note Date Of Service March 21, 2023 4: 36:46 PM UTC Created By [id number] on March 21, 2023 4:36:46 PM UTC Signed By [id number] on March 21, 2023 4:37:13 PM UTC MENTAL STATUS Section: Cognitive Status Comments: PROBLEMS PATIENT PROBLEMS Code Description/Comments Status Updated By [id number] Congestive heart failure active euf 9798 on March 20, 2023 3:45:36 PM UT [id number] Chronic obstructive lung disease active [id number] on March 20, 2023 5:51:12 PM UT [id number] Coronary arteriosclerosis active HG E4588 on March 20, 2023 5:51:27 PM UT [id number] Hypertensive disorder active [id number] 8 on March 20, 2023 5:51:38 PM UT [id number] Hyperlipidemia active [id number] on 2022 5:52:17 PM UT [id number] Myocardial infarction active [id number] 8 on March 20, 2023 5:52:38 PM UT [id number] Nonalcoholic steatohepatitis active ZEC1929 on March 20, 2023 5:52:56 PM UT [id number] Diabetes mellitus active [id number] on March 20, 2023 5:53:04 PM UT [id number] Neuropathy active [id number] on 2022 5:53:16 PM [place] RESULTS Patient: WANDER VANN Date of : [birth year] LABORATORY RESULTS ORDER 100: COMP METABOLIC PA LINDA (LOINC: 33597-0) ORDER DATE: March 20, 2023 10:41:00 AM [place] Specimen Source: Serum/Plasm a PERFORMING LAB: [address] [id number] Result Comment: Final Result Date: March 20, 2023 11:11:00 AM [facility] (TECH: [employer]) LOINC TEST FLAG RESULT REFERENCE RANGE UPDA [...] 32 mmol/L March 20, 2023 11:11:00 AM [facility] ([employer]: [employer]) 29616-3 Anion gap 3 in Serum or Plasma N 9.0 March 20, 2023 11:11:00 AM [facility] (TECH: [employer]) 2345-7 Glucose [Mass/volume ] in Serum or Plasma H 164 mg/dL 70 mg/dL - 110 mg/dL March 20, 2023 11:11:00 AM [facility] (TECH: [employer]) 3094-0 Urea nitrogen [Mass/volume] in Serum or Plasma H 42 mg/dL 7 mg/dL - 18 mg/dL March 20, 2023 11:11:00 AM [facility] (TECH: [employer]) 2160-0 Creatinine [Mass/volume] in Serum or Plasma H 2.5 mg/dL 0.8 mg/dL - 1.3 mg/dL March 20, 2023 11:11:00 AM [facility] ([employer]: [employer]) 3097-3 Urea nitrogen/Creatinine [Mass Ratio] in Serum or Plasma N 16.8 Ratio 9 Ratio - 21 Ratio March 20, 2023 11:11:00 AM [facility] ([employer]: [employer]) 56528-1 Glomerular filtratio n rate/1.73 sq M.predicted by Creatinine-based formula (MDRD) L 29 mL/min >60 March 20, 2023 11:11:00 AM [facility] (TECH: [employer]) 2885-2 Protein [Mass/volume ] in Serum or Plasma N 6.9 g/dL 6.4 g/dL - 8.2 g/dL March 20, 2023 11:11:00 AM [facility] (TECH: [employer]) 1751-7 Albumin [Mass/volume ] in Serum or Plasma L 2.8 g/dL 3.4 g/dL - 5.0 g/dL March 20, 2023 11:11:00 AM [facility] (TECH: [employer]) 70731-4 Calcium [Mass/volume ] in Serum or Plasma N 8.7 mg/dL 8.5 mg/dL - 10.1 mg/dL March 20, 2023 11:11:00 AM [facility] (TECH: [employer]) 04818-9 Calcium [Mass/volume ] corrected for total protein in Serum or Plasma N 9.7 mg/dL 8.5 mg/dL - 10.1 mg/dL March 20, 2023 11:11:00 AM [facility] (TECH: [employer]) 1975-2 Bilirubin.total [Mass/volume] in Serum or Plasma N 0.8 mg/dL 0.4 mg/dL - 1.5 mg/dL March 20, 2023 11:11:00 AM [facility] (TECH: [employer]) 1920-8 Aspartate aminotransferase [Enzymatic activity/volume] in Serum or Plasma H 39 U/L 15 U/L - 37 U/L March 20, 2023 11:11:00 AM [facility] (TECH: [employer]) 1742-6 Alanine aminotransferase [Enzymatic activity/volume] in Serum or Plasma N 25 U/L 12 U/L - 78 U/L March 20, 2023 11:11:00 AM [facility] (TECH: [employer]) 6768-6 Alkaline phosphatase [Enzymatic activity/volume] in Serum or Plasma H 204 U/L 50 U/L - 170 U/L March 20, 2023 11:11:00 AM [facility] (TECH: [employer]) ORDER 200: CBC AUTO W DIFF ( LOINC: 76825-6) ORDER DATE: March 20, 2023 10:41:00 AM [place] Specimen Source: Whole Blood PERFORMING LAB: [address] [id number] Result Comment: Final Result Date: March 20, [...] 20, 2023 10:55:00 AM UTC (TECH: AC) 46394-5 Hematocrit [Volume Fraction] of Blood L 40.6 % 42.0 % - 52.0 % March 20, 2023 10:55:00 AM UTC (TECH: AC) 787-2 Erythrocyte mean corpuscular volume [Entitic volume] by Automated count N 89.2 fl 80 fl - 95 fl March 20, 2023 10:55:00 AM UTC (TECH: AC) 72540-5 Erythrocyte mean corpuscular hemoglobin [Entitic mass] in Blood from Fetus by Automated count N 28.4 pg 27.0 pg - 34.0 pg March 20, 2023 10:55:00 AM UTC (TECH: AC) 10189-5 Erythrocyte mean corpuscular hemoglobin concentration [Mass/volume] in Blood from Fetus by Automated count L 31.8 g/dL 32.0 g/dL - 36.0 g/dL March 20, 2023 10:55:00 AM UTC (TECH: AC) 56592-0 Platelets [#/volume] in Blood N 317 10^3/uL 150 10^3/uL - 450 10^3/uL March 20, 2023 10:55:00 AM UTC (TECH: AC) 95237-5 Erythrocyte distribution width [Ratio] N 13.8 % 12.3 % - 15.1 % March 20, 2023 10:55:00 AM UTC (TECH: AC) 31501-3 Platelet mean volume [Entitic volume] in Blood by Automated count H 11.2 fl 7.4 fl - 10.4 fl March 20, 2023 10:55:00 AM UTC (TECH: AC) 44314-5 Granulocytes/100 leukocytes in Blood by Automated count [...] 20, 2023 10:55:00 AM UTC (TECH: AC) 33754-2 Immature granulocytes [#/volume] in Blood N 0.5 % 0.0 % - 0.8 % March 20, 2023 10:55:00 AM UTC (TECH: AC) 38502-0 Granulocytes [#/volume] in Blood by Automated count [...] 20, 2023 10:55:00 AM UTC (TECH: AC) 09153-4 Immature granulocytes [#/volume] in Blood N 0.05 10^3/uL March 20, 2023 10:55:00 AM UTC (TECH: AC) 14314-1 Manual differential performed [Presence] in Blood N NO March 20, 2023 10:55:00 AM UTC (TECH: AC) ORDER 400: TROPONIN QUANT (L OINC: 80116-7) ORDER DATE: March 20, 2023 10:41:00 AM UTC Specimen Source: Serum/Plasm a PERFORMING LAB: [address] [id number] Result Comment: Final Result Date: March 20, 2023 11:12:00 AM UTC (TECH: KSM) LOINC TEST [place] [address]-8 Troponin I.cardiac panel - Serum or Plasma by High sensitivity method HH 316 ng/L 0 ng/L - 76 ng/L March 20, 2023 11:12:00 AM UTC (TECH: [employer]) ORDER 500: MAGNESIUM (LOINC: 82686-3) ORDER DATE: March 20, 2023 10:41:00 AM UTC Specimen Source: Serum/Plasm a PERFORMING LAB: [address] [id number] Result Comment: Final Result Date: March 20, 2023 11:12:00 AM UTC (TECH: KSM) LOINC TEST [place] [address]-5 Magnesium [Mass/volume] in Serum or Plasma N 2.1 mg/dL 1.8 mg/dL - 2.4 mg/dL March 20, 2023 11:12:00 AM UTC (TECH: KSM) ORDER 600: LACTIC ACID (LOIN C: 70498-7) ORDER DATE: March 20, 2023 10:41:00 AM UTC Specimen Source: Serum/Plasm a PERFORMING LAB: [address] [id number] Result Comment: Final Result Date: March 20, 2023 11:12:00 AM UTC (TECH: KSM) LOINC TEST [place] [address]-2 Lactate [Mass/volume] in Serum or Plasma N 1.8 mmole/L 0.4 mmole/L - 2.0 mmole/L March 20, 2023 11:12:00 AM UTC (TECH: KSM) ORDER 1200: TROPONIN I 1 LARISSA R PROTOCOL (LOINC: 03981-7) ORDER DATE: March 20, 2023 12:10:00 PM UTC Specimen Source: Plasma PERFORMING LAB: [address] [id number] Result Comment: Final Result Date: March 20, 2023 12:39:00 PM UTC (TECH: KSM) LOINC TEST [place] [address]-8 Troponin I.cardiac panel - Serum or Plasma by High sensitivity method HH 295 ng/L 0 ng/L - 76 ng/L March 20, 2023 12:39:00 PM UTC (TECH: KSM) ORDER 1300: B-TYPE NATRIURET IC PEPTIDE BNP (LOINC: 45376-0) ORDER DATE: March 20, 2023 12:10:00 PM UTC Specimen Source: Whole Blood PERFORMING LAB: [address] [id number] Result Comment: Final Result Date: March 20, 2023 12:34:00 PM UTC (TECH: KSM) LOINC TEST FLAG [place] [address]-5 Natriuretic peptide B [Mass/volume] in Serum or Plasma H 2900.0 pg/mL 0.0 pg/mL - 100 pg/mL March 20, 2023 12:34:00 PM UTC (TECH: KSM) ORDER 1400: PROCALCITONIN (L OINC: 04261-1) ORDER DATE: March 20, 2023 12:11:00 PM UTC Specimen Source: Serum/Plasm a PERFORMING LAB: [address] [id number] Result Comment: Final Result Date: March 20, 2023 12:35:00 PM UTC (TECH: KSM) LOINC TEST [place] [address]-6 Procalcitonin [Mass/volume] in Serum or Plasma N <0.05 ng/ml 0.00 ng/ml - 0.5 ng/ml March 20, 2023 12:35:00 PM UTC (TECH: KSM) ORDER 3000: CBC AUTO W DIFF (LOINC: 30261-4) ORDER DATE: March 20, 2023 3:49:00 PM UTC Specimen Source: Whole Blood PERFORMING LAB: [address] [id number] Result Comment: Final Result Date: March 21, [...] March 21, 2023 11:50:00 AM UTC (TECH: [employer]) 54458-5 Hematocrit [Volume Fraction] of Blood L 28.8 % 42.0 % - 52.0 % March 21, 2023 11:50:00 AM UTC (TECH: [employer]) 787-2 Erythrocyte mean corpuscular volume [Entitic volume] by Automated count N 86.5 fl 80 fl - 95 fl March 21, 2023 11:50:00 AM UTC (TECH: [employer]) 71762-0 Erythrocyte mean corpuscular hemoglobin [Entitic mass] in Blood from Fetus by Automated count N 28.8 pg 27.0 pg - 34.0 pg March 21, 2023 11:50:00 AM UTC (TECH: [employer]) 50092-1 Erythrocyte mean corpuscular hemoglobin concentration [Mass/volume] in Blood from Fetus by Automated count N 33.3 g/dL 32.0 g/dL - 36.0 g/dL March 21, 2023 11:50:00 AM UTC (TECH: [employer]) 46145-8 Platelets [#/volume] in Blood N 194 10^3/uL 150 10^3/uL - 450 10^3/uL March 21, 2023 11:50:00 AM UTC (TECH: [employer]) 39060-6 Erythrocyte distribution width [Ratio] N 13.5 % 12.3 % - 15.1 % March 21, 2023 11:50:00 AM UTC (TECH: [employer]) 37659-9 Platelet mean volume [Entitic volume] in Blood by Automated count H 11.5 fl 7.4 fl - 10.4 fl March 21, 2023 11:50:00 AM UTC (TECH: [employer]) 31826-7 Granulocytes/100 leukocytes in Blood by Automated count H 76.3 % 40 % - 75 % March 21, 2023 11:50:00 AM UTC (TECH: [employer]) 736-9 Lymphocytes/100 leukocytes in Blood by Automated count N 15.9 % 15 % - 57 % March 21, 2023 11:50:00 AM UTC (TECH: [employer]) 5905-5 Monocytes/100 leukocytes in Blood by Automated [...] 21, 2023 11:50:00 AM UTC (TECH: KSM) 15545-6 Immature granulocytes [#/volume] in Blood N 0.1 % 0.0 % - 0.8 % March 21, 2023 11:50:00 AM UTC (TECH: KSM) 91314-0 Granulocytes [#/volume] in Blood by Automated count [...] March 21, 2023 11:50:00 AM UTC (TECH: Interview RocketM) 25826-8 Immature granulocytes [#/volume] in Blood N 0.01 10^3/uL March 21, 2023 11:50:00 AM UTC (TECH: KSM) 97881-6 Manual differential performed [Presence] in Blood N NO March 21, 2023 11:50:00 AM UTC (TECH: KSM) ORDER 3100: COMP METABOLIC P CECILIA (LOINC: 58940-6) ORDER DATE: March 20, 2023 3:49:00 PM UTC Specimen Source: Serum/Plasm a PERFORMING LAB: [address] [id number] Result Comment: Final Result Date: March 21, 2023 11:49:00 AM UT (TECH: [employer]) LOINC TEST FLAG RESULT REFERENCE RANGE UPDA YOAV BY 2951-2 Sodium [Moles/volume ] in Serum or Plasma N 139 mmol/L 136 mmol/L - 145 mmol/L March 21, 2023 11:49:00 AM UTC (TECH: [employer]) 2823-3 Potassium [Moles/volume] in Serum or Plasma N 4.8 mmol/L 3.5 mmol/L - 5.1 mmol/L March 21, 2023 11:49:00 AM UTC (TECH: [employer]) 2075-0 Chloride [Moles/volu me] in Serum or Plasma N 105 mmol/L 98 mmol/L - 107 mmol/L March 21, 2023 11:49:00 AM UT (TECH: [employer]) 2027-9 Carbon dioxide, tota l [Moles/volume] in Serum or Plasma N 26 mmol/L 21 mmol/L - 32 mmol/L March 21, 2023 11:49:00 AM UT (TECH: [employer]) 94733-9 Anion gap 3 in Serum or Plasma N 8.0 March 21, 2023 11:49:00 AM UT (TECH: [employer]) 2345-7 Glucose [Mass/volume ] in Serum or Plasma H 135 mg/dL 70 mg/dL - 110 mg/dL March 21, 2023 11:49:00 AM UT (TECH: [employer]) 3094-0 Urea nitrogen [Mass/volume] in Serum or Plasma H 65 mg/dL 7 mg/dL - 18 mg/dL March 21, 2023 11:49:00 AM UTC (TECH: [employer]) 2160-0 Creatinine [Mass/volume] in Serum or Plasma H 3.3 mg/dL 0.8 mg/dL - 1.3 mg/dL March 21, 2023 11:49:00 AM UTC (TECH: Interview Rocket[employer]) 3097-3 Urea nitrogen/Creatinine [Mass Ratio] in Serum or Plasma N 19.7 Ratio 9 Ratio - 21 Ratio March 21, 2023 11:49:00 AM UTC (TECH: [employer]) 02359-0 Glomerular filtratio n rate/1.73 sq M.predicted by Creatinine-based formula (MDRD) L 21 mL/min >60 March 21, 2023 11:49:00 AM UT (TECH: [employer]) 2885-2 Protein [Mass/volume ] in Serum or Plasma L 5.4 g/dL 6.4 g/dL - 8.2 g/dL March 21, 2023 11:49:00 AM UT (TECH: [employer]) 1751-7 Albumin [Mass/volume ] in Serum or Plasma L 2.3 g/dL 3.4 g/dL - 5.0 g/dL March 21, 2023 11:49:00 AM UT (TECH: [employer]) 87661-5 Calcium [Mass/volume ] in Serum or Plasma L 8.3 mg/dL 8.5 mg/dL - 10.1 mg/dL March 21, 2023 11:49:00 AM UT (TECH: [employer]) 06664-5 Calcium [Mass/volume ] corrected for total protein in Serum or Plasma N 9.7 mg/dL 8.5 mg/dL - 10.1 mg/dL March 21, 2023 11:49:00 AM UT (TECH: [employer]) 1975-2 Bilirubin.total [Mass/volume] in Serum or Plasma N 0.5 mg/dL 0.4 mg/dL - 1.5 mg/dL March 21, 2023 11:49:00 AM UT (TECH: [employer]) 1920-8 Aspartate aminotransferase [Enzymatic activity/volume] in Serum or Plasma N 26 U/L 15 U/L - 37 U/L March 21, 2023 11:49:00 AM UT (TECH: [employer]) 1742-6 Alanine aminotransferase [Enzymatic activity/volume] in Serum or Plasma N 18 U/L 12 U/L - 78 U/L March 21, 2023 11:49:00 AM UT (TECH: [employer]) 6768-6 Alkaline phosphatase [Enzymatic activity/volume] in Serum or Plasma N 139 U/L 50 U/L - 170 U/L March 21, 2023 11:49:00 AM UT (TECH: [employer]) ORDER 3200: MAGNESIUM (LOINC : 92107-9) ORDER DATE: March 20, 2023 3:49:00 PM UT Specimen Source: Serum/Plasm a PERFORMING LAB: [address] [id number] Result Comment: Final Result Date: March 21, 2023 11:49:00 AM UTC (TECH: KSM) LOINC TEST FLAG [place] [address]-7 Magnesium [Mass/volume] in Serum or Plasma N 2.0 mg/dL 1.8 mg/dL - 2.4 mg/dL March 21, 2023 11:49:00 AM UTC (TECH: KSM) ORDER 3300: GLUCOSE BLD METE R (LOINC: 74835-1) ORDER DATE: March 20, 2023 5:05:00 PM UTC Specimen Source: Whole Blood PERFORMING LAB: [address] [id number] Result Comment: March 20, 2023 5:05:00 PM UTC Test performed by: [id number] ; Instrument: [id number] Final Result Date: March 20, 2023 5:05:00 PM UTC (TECH: HL7) LOINC TEST FLAG [place] [address]-8 Glucose [Mass/volume] in Capillary blood by Glucometer H 167 mg/dl 70 mg/dl - 115 mg/dl March 20, 2023 5:05:00 PM UTC (TECH: HL7) ORDER 3800: GLUCOSE BLD METE R (LOINC: 36842-2) ORDER DATE: March 20, 2023 9:08:00 PM UTC Specimen Source: Whole Blood PERFORMING LAB: [address] [id number] Result Comment: March 20, 2023 9:09:00 PM UTC Test performed by: [id number] ; Instrument: [id number] Final Result Date: March 20, 2023 9:08:00 PM UTC (TECH: HL7) LOINC TEST [place] [address]-7 Glucose [Mass/volume] in Capillary blood by Glucometer H 351 mg/dl 70 mg/dl - 115 mg/dl March 20, 2023 9:08:00 PM UTC (TECH: HL7) ORDER 4100: GLUCOSE BLD METE R (LOINC: 23265-8) ORDER DATE: March 21, 2023 1:12:00 AM UTC Specimen Source: Whole Blood PERFORMING LAB: [address] [id number] Result Comment: March 21, 2023 1:16:00 AM UTC Test performed by: [id number] ; Instrument: [id number] Final Result Date: March 21, 2023 1:12:00 AM UTC (TECH: HL7) LOINC TEST FLAG [place] [address]-9 Glucose [Mass/volume] in Capillary blood by Glucometer H 418 mg/dl 70 mg/dl - 115 mg/dl March 21, 2023 1:12:00 AM UTC (TECH: HL7) ORDER 4200: GLUCOSE BLD METE R (LOINC: 76987-3) ORDER DATE: March 21, 2023 2:15:00 AM UTC Specimen Source: Whole Blood PERFORMING LAB: [address] [id number] Result Comment: March 21, 2023 2:55:00 AM UTC Test performed by: [id number] ; Instrument: [id number] Final Result Date: March 21, 2023 2:15:00 AM UTC (TECH: HL7) LOINC TEST FLAG [place] [address]-3 Glucose [Mass/volume] in Capillary blood by Glucometer H 393 mg/dl 70 mg/dl - 115 mg/dl March 21, 2023 2:15:00 AM UTC (TECH: HL7) ORDER 4300: GLUCOSE BLD METE R (LOINC: 88098-5) ORDER DATE: March 21, 2023 4:11:00 AM UTC Specimen Source: Whole Blood PERFORMING LAB: [address] [id number] Result Comment: March 21, 2023 8:03:00 AM UTC Test performed by: [id number] ; Instrument: [id number] Final Result Date: March 21, 2023 4:11:00 AM UTC (TECH: HL7) LOINC TEST FLAG [place] [address]-2 Glucose [Mass/volume ] in Capillary blood by Glucometer H 250 mg/dl 70 mg/dl - 115 mg/dl February 4:11:00 AM UTC (TECH: HL7) LABORATORY NARRATIVE RESULTS Information is not available RADIOLOGY RESULTS ORDER 700: CHEST SINGLE VIEW /PORTABLE (LOINC: 87962-3) ORDER DATE: March 20, 2023 10:41:00 AM [facility] PATHOLOGY NARRATIVE RESULTS Information is not available MICROBIOLOGY RESULTS No Micro Labs/Results Exist for Patient BLOOD ADMIN RESULTS Information is not available TREATMENT PLAN DISCHARGE MEDICATIONS Status RXNORM Medication Dose Route Frequency Dates Comments U pdated By Continued 081890 Levemir Subcutaneous Solution 100 UNIT/ML 12 UNT SUBCUTANEOU S AT BEDTIME Prescribe d: March 21, 2023 4:11:04 PM [facility] [id number] on March 21, 2023 4:11:04 PM [facility] Continued 973172 isosorbide mononitrate SR 24HR 60 MG BY MOUTH ONCE DAILY Prescribe d: March 21, 2023 4:11:04 PM [facility] [id number] on March 21, 2023 4:11:04 PM [facility] Continued 6079332 NovoLOG FlexPen Solution Pen-injector 100 UNIT/ML 5 UNT SUBCUTANEOU S THREE TIMES DAILY WITH MEALS Prescribe d: March 21, 2023 4:11:04 PM [facility] [id number] on March 21, 2023 4:11:04 PM [facility] Continued 098298 Gabapentin Oral Tablet 600 MG 600 MG BY MOUTH THREE TIMES A DAY Prescribe d: March 21, 2023 4:11:04 PM [facility] [id number] on March 21, 2023 4:11:04 PM [facility] Continued 368948 Entecavir Oral Tablet 0.5 MG 0.5 GM BY MOUTH EVERY 72 HOURS Prescribe d: March 21, 2023 4:11:04 PM [facility] [id number] on March 21, 2023 4:11:04 PM [facility] Continued 967650 Furosemide Tablet 20 MG 20 MG BY MOUTH ONCE DAILY Prescribe d: March 21, 2023 4:11:04 PM [facility] [id number] on March 21, 2023 4:11:04 PM [facility] Continued 007459 Carvedilol Tablet 6.25 MG 6.25 MG BY MOUTH TWICE A DAY Prescribe d: March 21, 2023 4:11:04 PM [facility] [id number] on March 21, 2023 4:11:04 PM [facility] Continued 611225 Clopidogrel Bisulfate Tablet 75 MG 75 MG BY MOUTH ONCE DAILY Prescribe d: March 21, 2023 4:11:04 PM [facility] [id number] on March 21, 2023 4:11:04 PM [facility] Continued 545132 Nitroglyceri n Tablet 0.4 MG 0.4 MG SUBLINGUAL EVERY FIVE MINUTES NEEDED Prescribe d: March 21, 2023 4:11:04 PM [facility] Max 3 doses [id number] on March 21, 2023 4:11:04 PM [facility] Continued 725511 ASPIR-LOW 81 MG BY MOUTH ONCE DAILY Prescrib e d: March 21, 2023 4:11:04 PM [place] [id number] on March 21, 2023 4:11:04 PM [facility] Continued 822402 amLODIPine Besylate Oral Tablet 10 MG 10 MG BY MOUTH ONCE DAILY Prescribe d: March 21, 2023 4:11:04 PM [facility] [id number] on March 21, 2023 4:11:04 PM [facility] Continued 021389 atorvastatin calcium (LIPITOR) 40 MG BY MOUTH ONCE DAILY Prescribe d: March 21, 2023 4:11:04 PM [facility] [id number] on March 21, 2023 4:11:04 PM [facility] PATIENT OPEN ORDERS Code System Description Frequency Occurrences Priority [place] [address]-7 [facility] EKG study ONE TIME 0 Stat March 20, 2023 10:41:00 AM [facility] ALBINO HERNANDEZ MD 4970 on March 20, 2023 10:41:00 AM [facility] 600-7 [facility] Bacteria identified in Blood by Culture ONE TIME 0 Stat March 20, 2023 10:42:00 AM [facility] ALBINO HERNANDEZ MD [id number] on March 20, 2023 5:00:00 AM [facility] 600-7 [facility] Bacteria identified in Blood by Culture ONE TIME 0 Stat March 20, 2023 10:42:00 AM [facility] ALBINO HERNANDEZ MD [id number] on March 20, 2023 10:03:00 AM [facility] 39947-8 [facility] Biphasic positive airway pressure (BIPAP) activ ONE TIME 0 Routine March 20, 2023 11:09:00 AM [facility] ALBINO HERNANDEZ MD [id number] on March 20, 2023 11:09:00 AM [facility] 77861-6 [facility] Admitted as an inpatient ONE TIME 0 Stat March 20, 2023 1:55:00 PM [facility] MARLENA Reynoso MD 2256 on March 20, 2023 1:55:00 PM [facility] [id number] [facility] CONSULT CARDIOPULMO NARY OXYGEN ONE TIME 0 Stat March 20, 2023 1:55:00 PM [facility] MARLENA Reynoso MD 2255 on March 20, 2023 1:55:[place] [address]-3 [facility] Provider orders ONE TIME 0 Stat March 20, 2023 1:55:00 PM [place] MARLENA Reynoso MD 2255 on March 20, 2023 1:55:[place] [address]-6 LOINC Diagnosis ONE TIME 0 Stat March 20, 2023 1:55:00 PM [place] MARLENA Reynoso MD 2255 on March 20, 2023 1:55:00 PM [place] 8716-3 [facility] Vital signs ONE TIME 0 Stat March 20, 2023 1:55:00 PM [place] MARLENA Reynoso MD 2255 on March 20, 2023 1:55:[place] [address]-3 [facility] Current activity level ONE TIME 0 Stat March 20, 2023 1:55:00 PM [place] MARLENA Reynoso MD 2255 on March 20, 2023 1:55:[place] [address]-1 [facility] Condition ONE TIME 0 Stat March 20, 2023 1:55:00 PM [place] MARLENA Reynoso MD 2255 on March 20, 2023 1:55:[place] [address]-3 [facility] Diet [Type] ONE TIME 0 Stat March 20, 2023 1:55:00 PM [place] MARLENA Reynoso MD 2255 on March 20, 2023 1:55:[place] [address]-8 [facility] Admission Information ONE TIME 0 Routine March 20, 2023 3:45:00 PM [place] THU Reynoso MD [id number] on March 20, 2023 3:49:00 PM UT 378980-1 [facility] Cardiopulmo nary resuscitati on orders ONE TIME 0 Routine March 20, 2023 3:45:00 PM [facility] THU Reynoso MD [id number] on March 20, 2023 3:49:[place] [address]-0 [facility] Provider orders ONE TIME 0 Routine March 20, 2023 3:45:00 PM [facility] THU Reynoso MD [id number] on March 20, 2023 3:49:00 PM UT [id number] [facility] Inspiratory reserve [Volume] Respiratory system ONE TIME 0 Routine March 20, 2023 3:45:00 PM [facility] THU Reynoso MD [id number] on March 20, 2023 3:49:00 PM [facility] 93281-6 [facility] Diet [Type] ONE TIME 0 Routine March 20, 2023 3:45:00 PM [facility] THU Reynoso MD [id number] on March 20, 2023 3:49:00 PM [facility] 50163-4 [facility] History of Tobacco use ONE TIME 0 Routine March 20, 2023 3:45:00 PM [facility] THU Reynoso MD [id number] on March 20, 2023 3:49:00 PM [facility] [id number] [facility] CONSULT CARDIOPULMO NARY OXYGEN ONE TIME 0 Routine March 20, 2023 3:45:00 PM [facility] THU Reynoso MD [id number] on March 20, 2023 3:49:00 PM [facility] CONSCR [facility] CONSULT CARDIAC REHAB ONE TIME 0 Routine March 20, 2023 6:39:00 PM [facility] THU Reynoso MD [id number] on March 20, 2023 6:39:00 PM [facility] REQNUT [facility] CONSULT GENERAL SALES MANAGER ONE TIME 0 Routine March 20, 2023 6:39:00 PM [facility] THU Reynoso MD [id number] on March 20, 2023 6:39:00 PM [facility] CONSPR [facility] CONSULT PULMONARY REHAB ONE TIME 0 Routine March 20, 2023 6:39:00 PM [facility] THU Reynoso MD [id number] on March 20, 2023 6:39:00 PM [facility] CONCOPD [facility] COPD EDUCATION FROM EXITCARE ONE TIME 0 Routine March 20, 2023 6:39:00 PM [facility] THU Reynoso MD [id number] on March 20, 2023 6:39:00 PM [facility] [id number] [facility] (C) OXYGEN PER DAY ONE TIME 0 Routine March 20, 2023 11:03:00 PM [facility] THU Reynoso MD [id number] on March 20, 2023 11:03:00 PM [facility] 50397-0 [facility] Risk for venous thromboembo lism ONE TIME 0 Routine March 21, 2023 12:07:00 AM [facility] THU Reynoso MD [id number] on March 21, 2023 12:07:00 AM [facility] 08598-5 [facility] Collection method - Specimen ONE TIME 0 Routine March 21, 2023 10:00:00 AM [facility] THU Reynoso MD [id number] on March 21, 2023 10:55:00 AM [facility] 47836-7 [facility] Risk for venous thromboembo lism ONE TIME 0 Routine March 21, 2023 1:15:00 PM [facility] THU Reynoso MD [id number] on March 21, 2023 1:15:00 PM [facility] 25266-8 [facility] Provider orders ONE TIME 0 Routine March 21, 2023 4:11:00 PM [facility] THU Reynoso MD [id number] on March 21, 2023 4:12:00 PM [facility] 32301-3 [facility] History of Tobacco use ONE TIME 0 Routine March 21, 2023 4:11:00 PM [facility] THU Reynoso MD [id number] on March 21, 2023 4:12:00 PM [facility] 83291-4 [facility] Diet [Type] ONE TIME 0 Routine March 21, 2023 4:11:00 PM [facility] THU Reynoso MD [id number] on March 21, 2023 4:12:00 PM [facility] 94402-6 [facility] Discharge diagnosis Narrative ONE TIME 0 Routine March 21, 2023 4:11:00 PM [facility] THU Reynoso MD [id number] on March 21, 2023 4:12:00 PM [facility] SCHEDULED PROCEDURES Code System Description Status Scheduled Date Upd ated By Patient scheduled procedure information is not available. 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 Acute on chronic hypoxemic respiratory failure due to 2. Acute on chronic systolic congestive heart failure3. COPD with exacerbation4. Acute renal failure overlying chronic kidney disease stage 3 C due to cardiorenal5. Valvular heart disease with aortic insufficiency and mitral regurgitation6. Nonalcoholic fatty liver disease and chronic hepatitis-B7. Poorly-controlled insulin-dependent diabetes mellitus with neuropathy and peripheral vascular disease and nephropathy8. Acute non ST segment elevation [place] Differential includes atypical infection, STEMI, pulmonary embolism. He had a protracted ER treatment course and although there has been some interval improvement attributable to afterload reduction and diuresis, he is still requiring BiPAP upon arrival to the floor. Continue afterload reduction with hydralazine and long- acting nitrates as well as his home regimen [...] him out of trouble between now and then.Hospitalization: As above, this severely chronically ill gentleman with very likely critical coronary artery disease, advanced chronic kidney disease, poorly-controlled diabetes mellitus, medical noncompliance, chronic ischemic and valvular cardiomyopathy came in with acute hypoxemic respiratory failure requiring BiPAP due to CHF exacerbation and non ST segment elevation VT. the plan was to treat him medically for both non STEMI as well as his CHF exacerbation. He received IV Lasix, beta-stacy, aspirin, Plavix, Lovenox and aggressive afterload reduction resulting in complete symptom relief. He also had a modest increase in his serum creatinine attributed to this diuresis. I had recommended he stay through the holiday weekend so that I could optimize his kidney function and that he could be more directly and more assuredly referred for heart catheterization which he does need. However, despite counseling otherwise he is insistent upon returning home today. MEDICATIONS HOME MEDICATIONS Status RXNORM Medication Dose Route Frequency Dates Comments R eported By Updated By Active [id number] atorvastatin calcium (LIPITOR) 40.0 MG PO DAILY Last Dose: [id number] on March 20, 2023 11:00:32 AM [facility] Active [id number] Carvedilol Tablet 6.25 MG 6.25 MG PO BID Last Dose: [id number] on March 20, 2023 4:23:07 PM [facility] Active 638963 Clopidogrel Bisulfate Tablet 75 MG 75.0 MG PO DAILY Last Dose: [id number] on March 20, 2023 4:23:17 PM [facility] Active 575665 Furosemide Tablet 20 MG 20.0 MG PO DAILY Last Dose: [id number] on March 20, 2023 4:24:22 PM [place] Active 352651 Nitroglycerin Tablet 0.4 MG 0.4 MG SUBLING [id number] Last Dose: Max 3 doses [id number] on March 21, 2023 4:10:16 PM [place] Active [id number] NovoLOG FlexPen Solution Pen-injector 100 UNIT/ML 5.0 UNT SUBCUT TIDWM Last Dose: [id number] on March 20, 2023 3:44:54 PM [place] Active [id number] Levemir Subcutaneous Solution 100 UNIT/ML 12.0 UNT SUBCUT BEDTIME Last Dose: PATIENT [id number] on March 20, 2023 3:44:49 PM [place] Active [id number] amLODIPine Besylate Oral Tablet 10 MG 10.0 MG PO DAILY Last Dose: [id number] on March 20, 2023 4:22:09 PM [place] Active [id number] ASPIR-LOW 81.0 MG PO DAILY Last Dose: [id number] on March 20, 2023 4:22:42 PM [place] Active [id number] Entecavir Oral Tablet 0.5 MG 0.5 GM PO Q72H Last Dose: [id number] on March 20, 2023 4:23:59 PM [place] Active [id number] Gabapentin Oral Tablet 600 MG 600.0 MG PO TID Last Dose: [id number] on March 20, 2023 4:24:48 PM [facility] DISCHARGE MEDICATIONS Status RXNORM Medication Dose Route Frequency Dates Comments Physic maia Updated By Continue d [id number] Levemir Subcutaneous Solution 100 UNIT/ML 12.0 UNT SUBCUTA NEOUS AT BEDTIME Prescri bed: [facility] 2022 4:11:04 PM [place] THU Reynoso MD PHY [id number] on March 21, 2023 4:11:04 PM [facility] Continue d 178184 isosorbide mononitrate SR 24HR 60.0 MG BY MOUTH ONCE DAILY Prescri bed: [facility] 2022 4:11:04 PM [facility] THU Reynoso MD PHY [id number] on March 21, 2023 4:11:04 PM [facility] Continue d [id number] NovoLOG FlexPen Solution Pen-injector 100 UNIT/ML 5.0 UNT SUBCUTA NEOUS THREE TIMES DAILY WITH MEALS Prescri bed: [facility] 2022 4:11:04 PM [place] THU Reynoso MD PHY [id number] on March 21, 2023 4:11:04 PM UTC Continue d [id number] Gabapentin Oral Tablet 600 MG 600.0 MG BY MOUTH THREE TIMES A DAY Prescri bed: [facility] 2022 4:11:04 PM [place] THU Reynoso MD, PHY [id number] on March 21, 2023 4:11:04 PM UTC Continue d [id number] Entecavir Oral Tablet 0.5 MG 0.5 GM BY MOUTH EVERY 72 HOURS Prescri bed: [facility] 2022 4:11:04 PM [place] THU Reynoso MD, PHY [id number] on March 21, 2023 4:11:04 PM UTC Continue d [id number] Furosemide Tablet 20 MG 20.0 MG BY MOUTH ONCE DAILY Prescri bed: [facility] 2022 4:11:04 PM [place] THU Reynoso MD PHY [id number] on March 21, 2023 4:11:04 PM UTC Continue d [id number] Carvedilol Tablet 6.25 MG 6.25 MG BY MOUTH TWICE A DAY Prescri bed: [facility] 2022 4:11:04 PM [place] THU Reynoso MD PHY [id number] on March 21, 2023 4:11:04 PM UTC Continue d 852818 Clopidogrel Bisulfate Tablet 75 MG 75.0 MG BY MOUTH ONCE DAILY Prescri bed: [facility] 2022 4:11:04 PM [place] THU Reynoso MD PHY [id number] on March 21, 2023 4:11:04 PM UTC Continue d [id number] Nitroglyceri n Tablet 0.4 MG 0.4 MG SUBLING UAL EVERY FIVE MINUTES NEEDED Prescri bed: [facility] 2022 4:11:04 PM UTC Max 3 doses THU Reynoso MD PHY [id number] on March 21, 2023 4:11:04 PM UTC Continue d [id number] ASPIR-LOW 81.0 MG BY MOUTH ONCE DAILY Prescri bed: [facility] 2022 4:11:04 PM [place] THU Reynoso MD PHY [id number] on March 21, 2023 4:11:04 PM UTC Continue d [id number] amLODIPine Besylate Oral Tablet 10 MG 10.0 MG BY MOUTH ONCE DAILY Prescri bed: [facility] 2022 4:11:04 PM [place] THU Reynoso MD, PHY [id number] on March 21, 2023 4:11:04 PM [facility] Continue d [id number] atorvastatin calcium (LIPITOR) 40.0 MG BY MOUTH ONCE DAILY Prescri bed: [facility] 2022 4:11:04 PM [facility] THU Reynoso MD, PHY [id number] on March 21, 2023 4:11:04 PM [facility] INPATIENT MEDICATIONS Status RXNORM Medication Dose Route Frequency Rate Quantity Dates Comments Physician Updated By Discont inued [id number] nitroglycer in SL (NITROSTAT) 0.4 MG SUBL 0.4 MG SUBLIN GUAL ONE TIME ONLY Start: [facility] 2022 10:40: 00 AM UTC End: [facility] 2022 10:40: 00 AM [place] ALBINO HERNANDEZ MD INTERFAC ED on March 20, 2023 10:40:00 AM [place] Discont inued [id number] LORazepam (ATIVAN) 2 MG/ML SOLN 2.0 MG IV PUSH ONE TIME ONLY Start: [facility] er 2022 10:44: 00 AM UTC End: [facility] er 2022 10:44: 00 AM UTC ALBINO HERNANDEZ MD INTERFAC ED on March 20, 2023 10:43:00 AM UTC Discont inued [id number] furosemide 40mg vial (LASIX) 10 MG/ML SOLN 40.0 MG IV PUSH ONE TIME ONLY Start: [facility] er 2022 10:46: 00 AM UTC End: [facility] er 2022 10:46: 00 AM UTC ALBINO HERNANDEZ MD INTERFAC ED on March 20, 2023 10:45:00 AM UTC Discont inued [id number] amLODIPine (NORVASC) 5 MG TABS 5.0 MG BY MOUTH ONE TIME ONLY Start: [facility] er 2022 12:02: 00 PM UTC End: [facility] er 2022 12:02: 00 PM UTC ALBINO HERNANDEZ MD INTERFAC ED on March 20, 2023 12:01:00 PM UTC Discont inued [id number] furosemide 40mg vial (LASIX) 10 MG/ML SOLN 40.0 MG IV PUSH ONE TIME ONLY Start: [facility] 12:02: 00 PM UTC End: [facility] 2022 12:02: 00 PM UTC ALBINO HERNANDEZ MD INTERFAC ED on March 20, 2023 12:02:00 PM UTC Discont inued [id number] hydrALAZINE (APRESOLINE ) 25 MG TABS 25.0 MG BY MOUTH ONE TIME ONLY Start: [facility] 2022 12:48: 00 PM UTC End: [facility] 2022 12:48: 00 PM UTC ALBINO HERNANDEZ MD INTERFAC ED on March 20, 2023 12:47:00 PM UTC Discont inued [id number] metolazone (ZAROXOLYN) 5 MG TABS 5.0 MG BY MOUTH ONE TIME ONLY Start: [facility] 20[facility] 1:06:0 0 PM UTC End: [facility] 2022 1:06:0 0 PM UTC ALBINO HERNANDEZ MD INTERFAC ED on March 20, 2023 1:05:00 PM UTC Discont inued [id number] losartan potassium (COZAAR) 50 MG TABS 50.0 MG BY MOUTH ONE TIME ONLY Start: [facility] 2022 1:06:0 0 PM UTC End: [facility] 2022 1:06:0 0 PM UTC ALBINO HERNANDEZ MD INTERFAC ED on March 20, 2023 1:06:00 PM UTC Discont inued [id number] isosorbide mononitrate SR 24HR 60 MG TB24 60.0 MG BY MOUTH ONE TIME ONLY Start: [facility] 2022 1:19:0 0 PM UTC End: [facility] 2022 1:19:0 0 PM UTC ALBINO HERNANDEZ MD INTERFAC ED on March 20, 2023 1:18:00 PM UTC Discont inued [id number] carvedilol (COREG) 6.25 MG TABS 6.25 MG BY MOUTH TWICE A DAY Start: [facility] 20[facility] 2:00:0 0 AM UTC End: [facility] 2022 5:00:0 0 PM UTC THU Reynoso MD [id number] on March 22, 2023 5:25:00 AM UTC Discont inued Aspirin 81 Tablet Chewable 81 MG 1.0 TAB BY MOUTH ONCE DAILY Start: [facility] 2022 2:00:0 0 PM UTC End: [facility] 2022 2:00:0 0 PM UTC THU Reynoso MD [id number] on March 20, 2023 4:12:00 PM UTC Discont inued gabapentin (NEURONTIN) 600.0 MG BY MOUTH THREE TIMES A DAY Start: [facility] 2022 8:00:0 0 PM UTC End: [facility] 2022 8:00:0 0 PM UTC THU Reynoso MD [id number] on March 20, 2023 4:16:00 PM UTC Discont inued [id number] atorvastati n calcium (LIPITOR) 40 MG TABS 40.0 MG BY MOUTH ONCE DAILY Start: [facility] 2022 2:00:0 0 PM UTC End: [facility] 2022 5:00:0 0 PM UTC THU Reynoso MD [id number] on March 22, 2023 5:25:00 AM UTC Discont inued amLODIPine (NORVASC) 10.0 MG BY MOUTH ONCE DAILY Start: [facility] 2022 2:00:0 0 PM UTC End: [facility] 2022 2:00:0 0 PM UTC THU Reynoso MD [id number] on March 20, 2023 4:12:00 PM UTC Discont inued [id number] clopidogrel (PLAVIX) 75 MG TABS 75.0 MG BY MOUTH ONCE DAILY Start: [facility] 2022 2:00:0 0 PM UTC End: [facility] 2022 5:00:0 0 PM UTC THU Reynoso MD [id number] on March 22, 2023 5:25:00 AM UTC Discont inued Levemir Subcutaneou s Solution 100 UNIT/ML 12.0 UNT SUBCUT ANEOUS AT BEDTIME Start: [facility] 2022 2:00:0 0 AM UTC End: [facility] 2022 2:00:0 0 AM UTC THU Reynoso MD [id number] on March 20, 2023 4:18:00 PM UTC Discont inued [id number] insulin lispro(DAVID LOG) 100 UNIT/ML SOLN 1.0 UNT SUBCUT ANEOUS SLIDING SCALE NEEDED Start: [facility] 2022 3:45:0 0 PM UTC End: [facility] 2022 4:11:0 4 PM UTC THU Reynoso MD [id number] on March 22, 2023 5:25:00 AM UTC Discont inued [id number] dextrose SYR (D50) PFS 50 % SOLN 50.0 ML IV PUSH NEEDED Start: [facility] 2022 3:45:0 0 PM UTC End: [facility] 2022 4:11:0 4 PM UTC THU Reynoso MD [id number] on March 22, 2023 5:25:00 AM UTC Discont inued MONOJECT FLUSH SYRINGE 0.9 % SOLN 10.0 ML IV FLUSH TWICE A DAY Start: [facility] 2022 2:00:0 0 AM UTC End: [facility] 2022 4:11:0 4 PM UTC THU Reynoso MD [id number] on March 22, 2023 5:25:00 AM UTC Discont inued [id number] hydrALAZINE (APRESOLINE ) 20 MG/ML SOLN 10.0 MG IV PUSH EVERY FOUR HOURS NEEDED Start: [facility] 2022 3:45:0 0 PM UTC End: [facility] 2022 4:11:0 4 PM UTC THU Reynoso MD [id number] on March 22, 2023 5:25:00 AM UTC Discont inued [id number] LABETALOL 5 MG/ML SOLN 10.0 MG IV PUSH EVERY TWO HOURS NEEDED Start: [facility] 2022 3:45:0 0 PM UTC End: [facility] 2022 4:11:0 4 PM UTC THU Reynoso MD [id number] on March 22, 2023 5:25:00 AM UTC Discont inued [id number] ACETAMINOPH EN 325 MG TABS 650.0 MG BY MOUTH EVERY SIX HOURS NEEDED Start: [facility] 2022 3:45:0 0 PM UTC End: [facility] 2022 4:11:0 4 PM UTC THU Reynoso MD [id number] on March 22, 2023 5:25:00 AM UTC Discont inued [id number] traZODone (DESYREL) 50 MG TABS 50.0 MG BY MOUTH AT BEDTIME NEEDED Start: [facility] 2022 3:45:0 0 PM UTC End: [facility] 2022 4:11:0 4 PM UTC THU Reynoso MD [id number] on March 22, 2023 5:25:00 AM UTC Discont inued [id number] enoxaparin (LOVENOX) 30 MG/0.3ML SOSY 30.0 MG SUBCUT ANEOUS ONCE DAILY Start: [facility] 20[facility] 2:00:0 0 PM UTC End: [facility] 2022 4:11:0 4 PM UTC THU Reynoso MD [id number] on March 22, 2023 5:25:00 AM UTC Discont inued [id number] ondansetron (ZOFRAN) 4 MG/2ML SOLN 4.0 MG IV PUSH EVERY EIGHT HOURS NEEDED Start: [facility] 2022 3:45:0 0 PM UTC End: [facility] 2022 4:11:0 4 PM UTC THU Reynoso MD [id number] on March 22, 2023 5:25:00 AM UTC Discont inued [id number] ondansetron (ZOFRAN) 4 MG TBDP 4.0 MG SUBLIN GUAL EVERY EIGHT HOURS NEEDED Start: [facility] 2022 3:45:0 0 PM UTC End: [facility] 2022 4:11:0 4 PM UTC THU Reynoso MD [id number] on March 22, 2023 5:25:00 AM UTC Discont inued [id number] furosemide 40mg vial (LASIX) 10 MG/ML SOLN 80.0 MG IV PUSH ONCE DAILY Start: [facility] 2022 2:00:0 0 PM UTC End: [facility] 2022 2:00:0 0 PM UTC THU Reynoso MD [id number] on March 20, 2023 4:16:00 PM UTC Discont inued [id number] isosorbide mononitrate SR 24HR 60 MG TB24 60.0 MG BY MOUTH ONCE DAILY Start: [facility] er 2022 3:48:0 0 PM UTC End: [facility] er 2022 5:00:0 0 PM UTC THU Reynoso MD [id number] on March 22, 2023 5:25:00 AM UTC Discont inued [id number] hydrALAZINE (APRESOLINE ) 25 MG TABS 50.0 MG BY MOUTH THREE TIMES A DAY Start: [facility] er 2022 3:48:0 0 PM UTC End: [facility] er 2022 4:11:0 4 PM UTC THU Reynoso MD [id number] on March 22, 2023 5:25:00 AM UTC Discont inued [id number] amLODIPine (NORVASC) 5 MG TABS 10.0 MG BY MOUTH ONCE DAILY Start: [facility] er 2022 2:00:0 0 PM UTC End: [facility] er 2022 4:11:0 4 PM UTC THU Reynoso MD [id number] on March 22, 2023 5:25:00 AM UTC Discont inued [id number] ASPIR-LOW 81 MG TBEC 81.0 MG BY MOUTH ONCE DAILY Start: [facility] er 2022 2:00:0 0 PM UTC End: [facility] er 2022 5:00:0 0 PM UTC THU Reynoso MD [id number] on March 22, 2023 5:25:00 AM UTC Discont inued [id number] furosemide 100mg vial (LASIX) 10 MG/ML SOLN 80.0 MG IV PUSH ONCE DAILY Start: [facility] er 2022 2:00:0 0 PM UTC End: [facility] er 2022 2:00:0 0 PM UTC THU Reynoso MD [id number] on March 21, 2023 1:19:00 PM UTC Discont inued [id number] gabapentin (NEURONTIN) 300 MG CAPS 600.0 MG BY MOUTH THREE TIMES A DAY Start: [facility] er 2022 8:00:0 0 PM UTC End: [facility] er 2022 4:11:0 4 PM UTC THU Reynoso MD [id number] on March 22, 2023 5:25:00 AM UTC Discont inued [id number] insulin glargine-YF GN 100 UNIT/ML SOLN 12.0 UNT SUBCUT ANEOUS AT BEDTIME Start: [facility] 2022 2:00:0 0 AM UTC End: [facility] 2022 2:06:2 6 PM UTC THU Reynoso MD [id number] on March 21, 2023 2:06:00 PM UTC Discont inued [id number] furosemide 40mg vial (LASIX) 10 MG/ML SOLN 80.0 MG IV PUSH ONCE DAILY Start: [facility] 2022 2:00:0 0 PM UTC End: [facility] er 2022 2:06:2 6 PM UTC THU Reynoso MD [id number] on March 21, 2023 2:06:00 PM UTC Discont inued [id number] insulin glargine-YF GN 100 UNIT/ML SOLN 20.0 UNT SUBCUT ANEOUS AT BEDTIME Start: [facility] 2022 4:11:0 4 PM UTC End: [facility] 2022 4:11:0 4 PM UTC THU Reynoso MD [id number] on March 22, 2023 5:25:00 AM UTC Discont inued *PATIENT INFORMATION MISC 1.0 EA SEE COMMEN TS NEEDED Start: [facility] 2022 4:11:0 0 PM UTC End: [facility] 2022 5:00:0 0 PM UTC THU Reynoso MD [id number] on March 22, 2023 5:25:00 AM UTC SOCIAL HISTORY SOCIAL HISTORY SNOMED-CT Social History Element Description Effective Dates Offered Cessation Comment UpdatedBy [id number] Current Tobacco smoking status Former Smoker End: February 18, 2023 5:00:00 AM UTC Not Applicable [id number] on March 21, 2023 3:04:25 PM UT [id number] Historical Tobacco smoking status Current Every Day Smoker Refused [id number] on February 01, 2023 3:49:56 PM [place] SOCIAL HISTORY - Gender Sex: Male SOCIAL HISTORY - Sexual Behavior Sexual Orientation Gender Identity SNOMED-CT Description SNO MED -CT Description Activity Level No of Partners Partner Type UpdatedBy VITAL SIGNS PATIENT VITAL SIGNS This section displays the mo st recent value for each vital sign as of March 23, 2023 5:47:44 PM UTC Loinc Code Vital Sign Activity Date Result Updated By 8302-2 Body height March 20 5:44:57 PM UTC 177.8 cm (70.0 in) [id number] on March 20, 2023 5:44:57 PM UTC 26206-3 Body mass index (BMI ) [Ratio] March 20, 2023 5:44:57 PM UTC 27.833 kg/m2 [id number] on March 20, 2023 5:44:57 PM UTC 3140-1 Body Surface Area Derived From Formula March 20, 2023 5:44:57 PM UTC 2.0605 m2 [id number] on March 20, 2023 5:44:57 PM UTC 8310-5 Body temperature March 21 12:09:00 PM UTC 97.4 [degF] [id number] on March 21, 2023 12:18:01 PM UTC 30867-6 Body weight Measured February 5:44:57 PM UTC 87.997 kg (194.0 lb) [id number] on March 20, 2023 5:44:57 PM UTC 8462-4 Diastolic blood pressure March 21, 2023 12:09:00 PM UTC 71.0 mm[Hg] [id number] on March 21, 2023 12:18:01 PM UTC 8867-4 Heart rate March 21 1:36:00 PM UTC 82 /min [id number] on March 21, 2023 1:36:14 PM UTC 12704-7 Oxygen saturation in Arterial blood by Pulse oximetry March 21, 2023 1:36:00 PM UTC 96.0 % [id number] on March 21, 2023 1:36:14 PM UTC 9279-1 Respiratory rate March 21 1:36:00 PM UTC 14 /min [id number] on March 21, 2023 1:36:14 PM UTC 14565-2 Spirometry panel March 21 1:36:00 PM UTC 10.0 {score} [id number] on March 21, 2023 1:36:14 PM UTC 8480-6 Systolic blood pressure March 21, 2023 12:09:00 PM UTC 140.0 mm[Hg] [id number] on March 21, 2023 12:18:01 PM [facility] PEDIATRIC GROWTH CHART - VITAL SIGNS This section displays Head C ircumference Percentile, Weight for Length Percentile and BMI Percentile Loinc Code Pediatric Measure Age (Months) Result Updat ed By GOALS PATIENT GOALS Goal Assigned Date Updated By *ROBERT VIRAMONTES JR MAINTAINS OPTIMAL GAS EXCHANGE March 20, 2023 [id number] on March 20, 2023 6:46:03 PM [facility] *ROBERT VIRAMONTES JR OR FAMILY VERBALIZES OR DEMONSTRATES KNOWLEDGE OF DIABETES March 20, 2023 [id number] on March 20, 2023 6:46:04 PM [facility] HEALTH CONCERNS Problems Concern Status Health Concern problem infor mation not available. Smoking Status Status Years Used Consumed packs p er day Health Concern smoking histo ry information not available. Family History Concern Status Health Concern family histor y information not available. ENCOUNTERS ENCOUNTER INFORMATION Reason for Visit PULMONARY EDEMA Admission March 20, 2023 3:49:[address] [address] Discharge March 21, 2023 5:00:00 PM [facility] DISCHARGED TO HOME OR SELF CARE ENCOUNTER DIAGNOSES Notes information is not bartolome ilable. Code System Diagnosis Onset Date Diagnosis information is not available. ABSTRACT DIAGNOSES Code System Diagnosis Updated By I13.0 ICD10 HYPERTENSIVE HEA RT AND CHRONIC KIDNEY DISEASE WITH HEART FAILURE AND STAGE 1 THROUGH STAGE 4 CHRONIC KIDNEY DISEASE, OR UNSPECIFIED CHRONIC KIDNEY DISEASE [id number] on March 23, 2023 5:47:04 PM [facility] I13.0 ICD10 HYPERTENSIVE HEA RT AND CHRONIC KIDNEY DISEASE WITH HEART FAILURE AND STAGE 1 THROUGH STAGE 4 CHRONIC KIDNEY DISEASE, OR UNSPECIFIED CHRONIC KIDNEY DISEASE [id number] on March 23, 2023 5:47:04 PM [facility] I50.23 ICD10 ACUTE ON CHRONIC SYSTOLIC (CONGESTIVE) HEART FAILURE [id number] on March 23, 2023 5:47:04 PM [facility] I21.4 ICD10 NON-ST ELEVATION (NSTEMI) MYOCARDIAL INFARCTION [id number] on March 23, 2023 5:47:04 PM [facility] J96.21 ICD10 ACUTE AND CHRONI C RESPIRATORY FAILURE WITH HYPOXIA [id number] on March 23, 2023 5:47:04 PM [facility] B18.1 ICD10 CHRONIC VIRAL HE PATITIS B WITHOUT DELTA-AGENT [id number] on March 23, 2023 5:47:04 PM UTC N17.9 ICD10 ACUTE KIDNEY FAILURE, UNSPEC IFIED [id number] on March 23, 2023 5:47:04 PM UTC N18.30 ICD10 CHRONIC KIDNEY D ISEASE, STAGE 3 UNSPECIFIED [id number] on March 23, 2023 5:47:04 PM UTC E11.22 ICD10 TYPE 2 DIABETES MELLITUS WITH DIABETIC CHRONIC KIDNEY DISEASE [id number] on March 23, 2023 5:47:04 PM UTC 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, UNSPECIFIED [id number] on March 23, 2023 5:47:04 PM [place] E11.51 ICD10 TYPE 2 DIABETES MELLITUS WITH DIABETIC PERIPHERAL ANGIOPATHY WITHOUT GANGRENE [id number] on March 23, 2023 5:47:04 PM UT Z89.612 ICD10 ACQUIRED ABSENCE OF LEFT LEG ABOVE KNEE [id number] on March 23, 2023 5:47:04 PM UT F17.200 ICD10 NICOTINE DEPENDE NCE, UNSPECIFIED, UNCOMPLICATED [id number] on March 23, 2023 5:47:04 PM UT I25.10 ICD10 ATHEROSCLEROTIC HEART DISEASE OF [place] CORONARY ARTERY WITHOUT ANGINA PECTORIS [id number] on March 23, 2023 5:47:04 PM UT I08.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 [id number] on March 23, 2023 5:47:04 PM UT J44.9 ICD10 CHRONIC OBSTRUCT ADAM PULMONARY DISEASE, UNSPECIFIED [id number] on March 23, 2023 5:47:04 PM [place] Z91.199 ICD10 PATIENT'S NONCOM PLIANCE WITH OTHER MEDICAL TREATMENT AND REGIMEN DUE TO UNSPECIFIED REASON [id number] on March 23, 2023 5:47:04 PM [place] I25.5 ICD10 ISCHEMIC CARDIOMYOPATHY [id number] on March 23, 2023 5:47:04 PM UT Z79.82 ICD10 [facility] (CURRENT) USE OF A SPIRIN [id number] on March 23, 2023 5:47:04 PM [place] Z79.899 ICD10 OTHER [facility] (CURRENT) DR RAJENDRA THERAPY [id number] on March 23, 2023 5:47:04 PM UT Z79.02 ICD10 MCFP (CURRE NT) USE OF ANTITHROMBOTICS/ANTIPLATELETS [id number] on March 23, 2023 5:47:04 PM UTC E78.00 ICD10 PURE HYPERCHOLESTEROLEMIA, U NSPECIFIED [id number] on March 23, 2023 5:47:04 PM UTC Z95.5 ICD10 PRESENCE OF NEETA NARY ANGIOPLASTY IMPLANT AND GRAFT [id number] on March 23, 2023 5:47:04 PM UTC G25.81 ICD10 RESTLESS LEGS SYNDROME [id number] on March 23, 2023 5:47:04 PM UTC 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 NSULIN [id number] on March 23, 2023 5:47:04 PM UTC CARE TEAM Care Junior Copywriter Role KEISHA ANDINO Primary Attending KEISHA ANDINO Referring KEISHA ANDINO Admitting PCP DECLINED Primary Care HOSPITAL DISCHARGE INSTRUCTION DISCHARGE INSTRUCTION Encounter [id number] Admit Date March 20, 2023 3: 49:00 PM UTC Discharge Date March 21, 2023 5: 00:00 PM UTC HISTORY AND PHYSICAL NOTE HISTORY AND PHYSICAL NOTE Note Title Nurse Intake Note Date Of Service March 20, 2023 5: 50:40 PM UTC Created By [id number] on March 20, 2023 5:50:40 PM UTC Signed By [id number] on March 20, 2023 5:53:58 PM UTC Problems Chronic obstructive lung disease Coronary arteriosclerosis Neuropathy Past 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 Headache, FEQUENT Non-alcoholic fatty liver Neuropathy Coronary arteriosclerosis Smoker H/O: depression Jaundice Restless legs Essential hypertension Hyperlipidemia Atelectasis, following procedure done at hospital per patient Congestive heart failure Type 2 diabetes mellitus Chronic obstructive lung disease Coronary artery finding Myocardial infarction @ 2015 Past Surgical History Cholecystectomy in 1998 Closure [...] 2023 3: 51:20 PM UTC Created By [id number] on March 20, 2023 3:51:20 PM [facility] Signed By [id number] on March 20, 2023 4:01:12 PM [facility] Chief Complaint Shortness of air History of Present Illness 57-year-old gentleman with poorly-controlled insulin-dependent diabetes mellitus, related peripheral neuropathy and peripheral vascular disease status post L AKA, tobacco abuse, coronary artery disease, HFrEF (32% 02/18 EDD @ [facility]), 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, essential hypertension, COPD, NAFLD, Chronic Hepatitis [...] Lab Results 0713 Chemistry TROPONIN 295 (H) 05 Chemistry SODIUM 145 K 4.5 CHLORIDE 107 CO2 29 A GAP 9.0 GLUCOSE 164 (H) BUN 42 (H) CREA 2.5 (H) BUN/CREA 16.8 EGFR 29 (L) PROTEIN 6.9 ALBUMIN 2.8 (L) CALCIUM 8.7 ZENAIDA COR 9.7 BILI TOT 0.8 AST/SGOT 39 (H) ALT/SGPT 25 ALK PHOS 204 (H) MG 2.1 TROPONIN 316 (H) LACTATE 1.8 0544 Special Chemistry PROCALCI <0.05 05 Hematology WBC 11.0 RBC 4.55 HGB 12.9 [...] artery disease, HFrEF (32% 02/18 EDD @ [facility]), 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 Acute non ST segment elevation VT Differential includes atypical infection, STEMI, pulmonary embolism. He had a protracted ER treatment course and although there has been some interval improvement attributable to afterload reduction and diuresis, he is still requiring BiPAP upon arrival to the floor. Continue afterload reduction with hydralazine and long-acting nitrates as well as his home regimen of beta-stcay which may need to be reduced. Will [...] SUMMARY NOTE DISCHARGE SUMMARY NOTE Note Title Discharge Summary Date Of Service March 21, 2023 7: 44:01 PM UTC Created By [email or web address] on March 21, 2023 7:44:01 PM UTC Signed By [id number] on March 21, 2023 7:47:11 PM UTC Admit Date Admit Date: Discharge Date Discharge Date: Patient Care Team Admitting Provider: THU RED Attending Provider:THU RED Consulting Provider: Hospital Course 57-year-old gentleman with poorly-controlled insulin-dependent diabetes mellitus, related peripheral neuropathy and peripheral vascular disease status post L AKA, tobacco abuse, coronary artery disease, HFrEF (32% 02/18 EDD @ [facility]), 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 Acute non ST segment elevation VT Differential includes atypical infection, STEMI, pulmonary embolism. [...] out of trouble between now and then. Hospitalization: As above, this severely chronically ill gentleman with very likely critical coronary artery disease, advanced chronic kidney disease, poorly-controlled diabetes mellitus, medical noncompliance, chronic ischemic and valvular cardiomyopathy came in with acute hypoxemic respiratory failure requiring BiPAP due to CHF exacerbation and non ST segment elevation VT. the plan was to treat him medically for both non STEMI as well as his CHF exacerbation. He received IV Lasix, beta-stacy, aspirin, Plavix, Lovenox and aggressive afterload reduction resulting in complete symptom relief. He also had a modest increase in his serum creatinine attributed to this diuresis. I had recommended he stay through the holiday weekend so that I could optimize his kidney function and that he could be more directly and more assuredly referred for heart catheterization which he does need. However, despite counseling otherwise he is insistent upon returning home today. Vital Signs 0836 HR 82 RR 14 O2Sat 96 0709 T 97.4 HR 86 RR 18 BP 140 / 71 O2Sat 99 0354 T 98.3 BP 138 / 70 Intake and Output previous current encounter day day cumulative Intake 5879 756 3966 Output 700 1000 1700 Balance 620 (-640) (-20) Physical Exam General Alert Negative For: Acute respiratory distress, Lethargic Neck Negative For: Jugular Venous Distention, Bruit Respiratory Symmetry of chest movement Bilateral Rhonchi Negative For: Tachypnea, Wheezing Cardiovascular Normal first heart sound, S>1<, Normal second heart sound, S>2< Negative For: Systolic murmur, Tachycardia Abdomen Abdomen soft, Bowel sounds normal Negative For: Abdominal tenderness Musculoskelatal Normal Tone Left AKA Peripheral Vascular/Extremities Brawny discoloration of chronic venous stasis. Trace dorsalis pedis pulse palpable. Left AKA of course. Lab Results 0555 Chemistry SODIUM 139 K 4.8 CHLORIDE 105 CO2 26 A GAP 8.0 GLUCOSE 135 (H) BUN 65 (H) CREA 3.3 (H) BUN/CREA 19.7 EGFR 21 (L) PROTEIN 5.4 (L) ALBUMIN 2.3 (L) CALCIUM 8.3 (L) ZENAIDA COR 9.7 BILI TOT 0.5 AST/SGOT 26 ALT/SGPT 18 ALK PHOS 139 MG 2.0 0548 Hematology WBC 8.4 RBC 3.33 (L) HGB 9.6 (L) HCT 28.8 (L) MCV 86.5 MCH 28.8 MCHC 33.3 PLT S 194 RDW 13.5 MPV 11.5 (H) GRAN% 76.3 (H) LYMPH% 15.9 MONO% 7.5 EOS% 0.1 BASO% 0.1 IG% 0.1 GRAN# 6.39 LYMPH# 1.33 MONO# 0.63 EOS# 0.01 BASO# 0.01 IG# 0.01 MANDIFF? No 2311 Point Of Care GLUMETER 250 (H) 2114 Point Of Care GLUMETER 393 (H) 2011 Point Of Care GLUMETER 418 (H) 1608 Point Of Care GLUMETER 351 (H) Procedures and Surgeries None Condition at Discharge Good Discharge Medications <style size='11'>amLODIPine Besylate Oral Tablet 10 MG</style><style size='9' forecolor='#875920'>10 MG BY MOUTH ONCE DAILY </style> <style size='11'>ASPIR-LOW</style><style size='9' forecolor='#835332'>81 MG BY MOUTH ONCE DAILY </style> <style size='11'>atorvastatin calcium (LIPITOR)</style><style size='9' forecolor='#702512'>40 MG BY MOUTH ONCE DAILY </style> <style size='11'>Carvedilol Tablet 6.25 MG</style><style size='9' forecolor='#968653'>6.25 MG BY MOUTH TWICE A DAY </style> <style size='11'>Clopidogrel Bisulfate Tablet 75 MG</style><style size='9' forecolor='#110414'>75 MG BY MOUTH ONCE DAILY </style> <style size='11'>Entecavir Oral Tablet 0.5 MG</style><style size='9' forecolor='#910865'>0.5 GM BY MOUTH EVERY 72 HOURS </style> <style size='11'>Furosemide Tablet 20 MG</style><style size='9' forecolor='#919153'>20 MG BY MOUTH ONCE DAILY (ePrescribed by THU RED on 1111)</style> <style size='11'>Gabapentin Oral Tablet 600 MG</style><style size='9' forecolor='#110915'>600 MG BY MOUTH THREE TIMES A DAY </style> <style size='11'>isosorbide mononitrate SR 24HR</style><style size='9' forecolor='#517654'>60 MG BY MOUTH ONCE DAILY (ePrescribed by THU RED on 1111)</style> <style size='11'>Levemir Subcutaneous Solution 100 UNIT/ML</style><style size='9' forecolor='#397390'>12 UNT SUBCUTANEOUS AT BEDTIME </style> <style size='11'>Nitroglycerin Tablet 0.4 MG</style><style size='9' forecolor='#122824'>0.4 MG SUBLINGUAL EVERY FIVE MINUTES NEEDED for CHEST PAIN </style> <style size='11'>NovoLOG FlexPen Solution Pen-injector 100 UNIT/ML</style><style size='9' forecolor='#128882'>5 UNT SUBCUTANEOUS THREE TIMES DAILY WITH MEALS </style> Discharge Instructions Basic metabolic panel on Wednesday. Follow-up PCP. Diabetic 2 g sodium restricted diet. Daily weights. FSBS q.a.c. and HS. Time spent with Patient 35 minutes Electronically signed by THU RED on 3186 Note Title Nurse Discharge Note Date Of Service March 21, 2023 4: 36:46 PM UTC Created By [email or web address] on March 21, 2023 4:36:46 PM UTC Signed By [id number] on March 21, 2023 4:37:13 PM UTC Cognitive Status Alert, Oriented x4 Functional Status Difficulty performing ADL's Discharge Diagnosis Neuropathy Diabetes mellitus Nonalcoholic steatohepatitis Myocardial infarction Hyperlipidemia Hypertensive disorder Coronary arteriosclerosis Chronic obstructive lung disease Congestive heart failure Electronically signed by AMISH Mitchell RN on 1137 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 Role on Team Status Start Date End Date Update d By THU RED Referring normal March 20, 2023 1:58:15 PM UTC March 20, 2023 5:00:00 AM UTC [id number] on March 20, 2023 1:58:15 PM UTC THU RED Attending normal March 20, 2023 1:58:15 PM UTC March 20, 2023 5:00:00 AM UTC [id number] on March 20, 2023 1:58:15 PM UTC THU RED Admitting normal March 20, 2023 1:58:15 PM UTC March 20, 2023 5:00:00 AM UTC [id number] on March 20, 2023 1:58:15 PM UTC ALBINO HERNANDEZ MD Referring normal March 20, 2023 1:41:30 PM UTC March 20, 2023 1:57:56 PM UTC [id number] on March 20, 2023 1:58:15 PM UTC ALBINO HERNANDEZ MD Attending normal March 20, 2023 1:41:30 PM UTC March 20, 2023 1:57:56 PM UTC [id number] on March 20, 2023 1:58:15 PM UTC ALBINO HERNANDEZ MD Admitting normal March 20, 2023 1:41:30 PM UTC March 20, 2023 1:57:56 PM UTC [id number] on March 20, 2023 1:58:15 PM UTC DECLINED PCP PCP normal March 20, 2023 10:38:30 AM UTC March 20, 2023 1:57:56 PM UTC [id number] on March 20, 2023 1:58:15 PM UTC
--- OUTSIDE RECORDS SUMMARY | 2023-04-06 10:21 | XMS_ITS | Continuity of Care Document ---
Author Name Unknown Address [address] [place] [address] [phone] Organization [facility] Phone Care Team Providers Care Eligibility Manager Name Role Phone JOSE ORLANDO Admitting DECLINED, PCP Primary Care Unavailable JOSE ORLANDO Unavailable JOSE ORLANDO Primary Attending ALLERGIES AND ADVERSE REACTIONS ALLERGIES AND ADVERSE REACTIONS Code System Allergy Substance Adverse Reaction Date Reaction (Severity) Comment Status Reported By Updated By [id number] RXNorm PENICILLIN Rash (Moderate) active [id number] on March 23, 2023 8:30:57 AM UT FAMILY HISTORY RELATION: Father Status: Cause of : Malignant neoplastic disease Age at : 60 SNOMED-CT Diagnosis Age At Onset [id number] Malignant neoplastic disease RELATION: Mother Status: Cause of : Congestive heart failure Age at : 58 SNOMED-CT Diagnosis Age At Onset [id number] Congestive heart failure RESULTS Patient: WANDER JONES RAY Date of : [birth year] LABORATORY RESULTS ORDER 200: ARTERIAL BLOOD GA S (LOINC: 94221-8) ORDER DATE: March 23, 2023 8:27:00 AM UTC Specimen Source: Whole Blood PERFORMING LAB: [address] [id number] Result Comment: Final Result Date: March 23, 2023 8:45:00 AM UTC (TECH: TS1) LOINC TEST FLAG [place] [address]-7 Specimen source subject [Type] N ARTERIAL March 23, 2023 8:45:00 AM UTC (TECH: TS1) 97205-3 Arterial patency Wrist artery --pre arterial puncture [...] 23, 2023 8:45:00 AM UTC (TECH: TS1) 39723-2 Bicarbonate [Moles/volume] standard in Arterial blood H 28.2 mEq/L 21 mEq/L - 25 mEq/L March 23, 2023 8:45:00 AM UTC (TECH: TS1) 58159-3 Base excess standard in Arterial blood by calculation N 4.1 March 23, 2023 8:45:00 AM UTC (TECH: TS1) 2714-4 Fractional oxyhemoglobin in Arterial blood N 100 % March 23, 2023 8:45:00 AM UTC (TECH: TS1) 3150-0 Inhaled oxygen concentration N 100.0 % March 23, 2023 8:45:00 AM UTC (TECH: TS1) 96234-1 Oxygen gas flow Oxygen delivery system N BIPAP March 23, 2023 8:45:00 AM UTC (TECH: TS1) 31054-3 Room temperature N 37.0 Dec emb 2022 8:45:00 AM UTC (TECH: TS1) ORDER 300: B-TYPE NATRIURETI C PEPTIDE BNP (LOINC: 21527-8) ORDER DATE: March 23, 2023 8:27:00 AM UT Specimen Source: Whole Blood PERFORMING LAB: [address] [id number] Result Comment: Final Result Date: March 23, 2023 9:19:00 AM UT (TECH: RJV) LOINC TEST FLAG [place] [address]-8 Natriuretic peptide B [Mass/volume] in Serum or Plasma H 1770.0 pg/mL 0.0 pg/mL - 100 pg/mL March 23, 2023 9:19:00 AM UTC (TECH: RJV) ORDER 600: CBC AUTO W DIFF ( LOINC: 44296-2) ORDER DATE: March 23, 2023 8:27:00 AM UTC Specimen Source: Whole Blood PERFORMING LAB: [address] [id number] Result Comment: Final Result Date: March 23, 2023 8:59:00 AM UTC (TECH: Hittahem) LOINC TEST FLAG RESULT REFERENCE RANGE UPDA YOAV BY 6690-2 Leukocytes [#/volume] in Blood by Automated count H 14.7 10^3/uL 4.5 10^3/uL - 11.5 10^3/uL March 23, 2023 8:59:00 AM UTC (TECH: Hittahem) 789-8 Erythrocytes [#/volume] in Blood by Automated count N 4.37 10^6/uL 4.25 10^6/uL - 5.57 10^6/uL March 23, 2023 8:59:00 AM UTC (TECH: Hittahem) 718-7 Hemoglobin [Mass/volume] in Blood L 12.3 g/dL 13.5 g/dL - 17.2 g/dL March 23, 2023 8:59:00 AM UTC (TECH: Hittahem) 88035-5 Hematocrit [Volume Fraction] of Blood L 39.5 % 42.0 % - 52.0 % March 23, 2023 8:59:00 AM UTC (TECH: Hittahem) 787-2 Erythrocyte mean corpuscular volume [Entitic volume] by Automated count N 90.4 fl 80 fl - 95 fl March 23, 2023 8:59:00 AM UTC (TECH: Hittahem) 88992-1 Erythrocyte mean corpuscular hemoglobin [Entitic mass] in Blood from Fetus by Automated count N 28.1 pg 27.0 pg - 34.0 pg March 23, 2023 8:59:00 AM UTC (TECH: Hittahem) 07384-3 Erythrocyte mean corpuscular hemoglobin concentration [Mass/volume] in Blood from Fetus by Automated count L 31.1 g/dL 32.0 g/dL - 36.0 g/dL March 23, 2023 8:59:00 AM UTC (TECH: Hittahem) 81025-9 Platelets [#/volume] in Blood N 337 10^3/uL 150 10^3/uL - 450 10^3/uL March 23, 2023 8:59:00 AM UTC (TECH: Hittahem) 90086-9 Erythrocyte distribution width [Ratio] N 13.9 % 12.3 % - 15.1 % March 23, 2023 8:59:00 AM UTC (TECH: RJV) 54078-9 Platelet mean volume [Entitic volume] in Blood by Automated count H 11.6 fl 7.4 fl - 10.4 fl March 23, 2023 8:59:00 AM UTC (TECH: RJV) 51803-0 Granulocytes/100 leukocytes in Blood by Automated count [...] 23, 2023 8:59:00 AM UTC (TECH: RJV) 12216-9 Immature granulocytes [#/volume] in Blood N 0.5 % 0.0 % - 0.8 % March 23, 2023 8:59:00 AM UTC (TECH: RJV) 19316-3 Granulocytes [#/volume] in Blood by Automated count [...] March 23, 2023 8:59:00 AM UT (TECH: Hittahem) 704-7 Basophils [#/volume] in Blood by Automated count N 0.07 10^3/uL March 23, 2023 8:59:00 AM UT (TECH: Hittahem) 92990-1 Immature granulocytes [#/volume] in Blood N 0.08 10^3/uL March 23, 2023 8:59:00 AM UT (TECH: Hittahem) 29452-7 Manual differential performed [Presence] in Blood N NO March 23, 2023 8:59:00 AM UT (TECH: Hittahem) ORDER 700: COMP METABOLIC PA LINDA (LOINC: 17012-0) ORDER DATE: March 23, 2023 8:27:00 AM UT Specimen Source: Plasma PERFORMING LAB: [address] [id number] Result Comment: Final Result Date: March 23, 2023 9:13:00 AM UT (TECH: Hittahem) LOINC TEST FLAG RESULT REFERENCE RANGE UPDA YOAV BY 2951-2 Sodium [Moles/volume ] in Serum or Plasma N 143 mmol/L 136 mmol/L - 145 mmol/L March 23, 2023 9:13:00 AM UT (TECH: Hittahem) 2823-3 Potassium [Moles/volume] in Serum or Plasma N 4.7 mmol/L 3.5 mmol/L - 5.1 mmol/L March 23, 2023 9:13:00 AM UT (TECH: Hittahem) 5-0 Chloride [Moles/volu me] in Serum or Plasma N 105 mmol/L 98 mmol/L - 107 mmol/L March 23, 2023 9:13:00 AM UT (TECH: foc.usV) 8-9 Carbon dioxide, tota l [Moles/volume] in Serum or Plasma N 30 mmol/L 21 mmol/L - 32 mmol/L March 23, 2023 9:13:00 AM UT (TECH: Hittahem) 94692-9 Anion gap 3 in Serum or Plasma N 8.0 March 23, 2023 9:13:00 AM UT (TECH: foc.usV) 2345-7 Glucose [Mass/volume ] in Serum or Plasma H 287 mg/dL 70 mg/dL - 110 mg/dL March 23, 2023 9:13:00 AM [facility] (TECH: Hittahem) 3094-0 Urea nitrogen [Mass/volume] in Serum or Plasma H 67 mg/dL 7 mg/dL - 18 mg/dL March 23, 2023 9:13:00 AM [facility] (TECH: foc.usV) 2160-0 Creatinine [Mass/volume] in Serum or Plasma H 3.4 mg/dL 0.8 mg/dL - 1.3 mg/dL March 23, 2023 9:13:00 AM [facility] (TECH: Hittahem) 3097-3 Urea nitrogen/Creatinine [Mass Ratio] in Serum or Plasma N 19.7 Ratio 9 Ratio - 21 Ratio March 23, 2023 9:13:00 AM [facility] ([employer]: Hittahem) 57561-7 Glomerular filtratio n rate/1.73 sq M.predicted by Creatinine-based formula (MDRD) L 20 mL/min >60 March 23, 2023 9:13:00 AM [facility] (TECH: Hittahem) 2885-2 Protein [Mass/volume ] in Serum or Plasma N 7.0 g/dL 6.4 g/dL - 8.2 g/dL March 23, 2023 9:13:00 AM [facility] (TECH: Hittahem) 1751-7 Albumin [Mass/volume ] in Serum or Plasma L 3.1 g/dL 3.4 g/dL - 5.0 g/dL March 23, 2023 9:13:00 AM [facility] ([employer]: Hittahem) 86591-9 Calcium [Mass/volume ] in Serum or Plasma N 8.7 mg/dL 8.5 mg/dL - 10.1 mg/dL March 23, 2023 9:13:00 AM [facility] (TECH: Hittahem) 91405-1 Calcium [Mass/volume ] corrected for total protein in Serum or Plasma N 9.4 mg/dL 8.5 mg/dL - 10.1 mg/dL March 23, 2023 9:13:00 AM [facility] (TECH: Hittahem) 1975-2 Bilirubin.total [Mass/volume] in Serum or Plasma N 0.6 mg/dL 0.4 mg/dL - 1.5 mg/dL March 23, 2023 9:13:00 AM [facility] (TECH: RJV) 1920-8 Aspartate aminotransferase [Enzymatic activity/volume] in Serum or Plasma H 48 U/L 15 U/L - 37 U/L March 23, 2023 9:13:00 AM UT (TECH: foc.usV) 1742-6 Alanine aminotransferase [Enzymatic activity/volume] in Serum or Plasma N 31 U/L 12 U/L - 78 U/L March 23, 2023 9:13:00 AM UT (TECH: Hittahem) 6768-6 Alkaline phosphatase [Enzymatic activity/volume] in Serum or Plasma H 232 U/L 50 U/L - 170 U/L March 23, 2023 9:13:00 AM UT (TECH: foc.usV) ORDER 800: CK MB (LOINC: 326 73-6) ORDER DATE: March 23, 2023 8:27:00 AM UT Specimen Source: Plasma PERFORMING LAB: [place] [id number] Result Comment: Final Result Date: March 23, 2023 9:13:00 AM [facility] (TECH: Hittahem) LOINC TEST FLAG [place] [address]-5 Creatine kinase.MB [Enzymatic activity/volume] in Serum or Plasma N 2.3 ng/mL 0.0 ng/mL - 3.6 ng/mL March 23, 2023 9:13:00 AM UT (TECH: foc.usV) ORDER 900: D-DIMER QUANTITAT ADAM (LOINC: 7799-0) ORDER DATE: March 23, 2023 8:27:00 AM UT Specimen Source: Plasma PERFORMING LAB: [address] [id number] Result Comment: Final Result Date: March 23, 2023 9:12:00 AM UT (TECH: foc.usV) LOINC TEST FLAG RESULT REFERENCE RANGE UPDA YOAV BY 7799-0 Fibrin D-dimer [Units/volume] in Platelet poor plasma HH 1467.26 ng/mL 0 ng/mL - 500 ng/mL March 23, 2023 9:12:00 AM UT (TECH: RJV) ORDER 1000: LACTIC ACID (PARI NC: 33103-0) ORDER DATE: March 23, 2023 8:27:00 AM UT Specimen Source: Serum/Plasm a PERFORMING LAB: [place] [id number] Result Comment: Final Result Date: March 23, 2023 9:19:00 AM UTC (TECH: RJV) LOINC TEST [place] [address]-0 Lactate [Mass/volume] in Serum or Plasma H 2.1 mmole/L 0.4 mmole/L - 2.0 mmole/L March 23, 2023 9:19:00 AM UTC (TECH: RJV) ORDER 1100: PT PROTHROMBIN T VINCENT W INR (LOINC: 35297-2) ORDER DATE: March 23, 2023 8:27:00 AM UTC Specimen Source: Plasma PERFORMING LAB: [address] [id number] Result Comment: Final Result Date: March 23, 2023 8:59:00 AM UTC (TECH: RJV) LOINC TEST [place] [address]-9 INR in Platelet poor plasma or blood by Coagulation assay N 10.0 seconds 9.1 seconds - 12.0 seconds March 23, 2023 8:59:00 AM UTC (TECH: RJV) 6301-6 INR in Platelet poor plasma by Coagulation assay N 0.91 0.9 - 1.1 March 23, 2023 8:59:00 AM UTC (TECH: RJV) ORDER 1200: PTT PARTIAL THRO MB TIME (LOINC: 74000-8) ORDER DATE: March 23, 2023 8:27:00 AM UTC Specimen Source: Plasma PERFORMING LAB: [address] [id number] Result Comment: Final Result Date: March 23, 2023 8:59:00 AM UTC (TECH: RJV) LOINC TEST FLAG [place] [address]-5 Activated partial thromboplastin time (aPTT) in Platelet poor plasma by Coagulation assay L 20.5 seconds 24.5 seconds - 32.8 seconds March 23, 2023 8:59:00 AM UTC (TECH: RJV) ORDER 1300: TROPONIN QUANT ( LOINC: 89544-1) ORDER DATE: March 23, 2023 8:27:00 AM UTC Specimen Source: Plasma PERFORMING LAB: [address] [id number] Result Comment: Final Result Date: March 23, 2023 9:14:00 AM UTC (TECH: RJV) LOINC TEST FLAG [place] [address]-2 Troponin I.cardiac panel - Serum or Plasma by High sensitivity method HH 138 ng/L 0 ng/L - 76 ng/L March 23, 2023 9:14:00 AM UTC (TECH: foc.usV) ORDER 1400: INFLUENZA A/B SC REEN (LOINC: 14394-8) ORDER DATE: March 23, 2023 8:27:00 AM UTC Specimen Source: Swab PERFORMING LAB: [address] [id number] Result Comment: Final Result Date: March 23, 2023 9:11:00 AM UTC (TECH: foc.usV) LOINC TEST [place] [address]-5 Influenza virus A Ag [Presence] in Nose N negative NEGATIVE March 23, 2023 9:11:00 AM UTC (TECH: foc.usV) 49535-0 Haemophilus influenzae B Ag [Presence] in Serum N negative NEGATIVE March 23, 2023 9:11:00 AM UTC (TECH: Hittahem) 65587-3 Internal control result N PASS PASS March 23, 2023 9:11:00 AM UTC (TECH: foc.usV) ORDER 1500: UA AND MICRO/CUL T IF INDICATED (LOINC: 59718-5) ORDER DATE: March 23, 2023 8:27:00 AM UTC Specimen Source: URINE PERFORMING LAB: [address] [id number] Result Comment: Final Result Date: March 23, 2023 9:47:00 AM UTC (TECH: foc.usV) LOINC TEST FLAG RESULT REFERENCE RANGE UPDA YOAV BY 5778-6 Color of Urine N STRAW YELLOW Decem 2022 9:47:00 AM UTC (TECH: RJV) 5767-9 Appearance of Urine N CLEAR CLEAR March 23, 2023 9:47:00 AM UTC (TECH: RJV) 5792-7 Glucose [Mass/volume] in Urine by Test strip N 100 NORMAL March 23, 2023 9:47:00 AM UTC (TECH: RJV) 16852-2 Bilirubin.total [Mass/volume] in Urine by Automated test strip N NEGATIVE NEGATIVE March 23, 2023 9:47:00 AM UTC (TECH: RJV) 5797-6 Ketones [Mass/volume] in Urine by Test strip N NEGATIVE NEGATIVE March 23, 2023 9:47:00 AM UTC (TECH: Hittahem) 2965-2 Specific gravity of Urine N 1.010 1.005 - 1.035 March 23, 2023 9:47:00 AM UTC (TECH: Hittahem) 30183-4 Erythrocytes [#/volume] in Urine by Automated test strip N 25 (1+) /mcL NEGATIVE March 23, 2023 9:47:00 AM UTC (TECH: Hittahem) 71700-2 pH of Urine by Automated test strip N 6.00 5.0 - 7.5 March 23, 2023 9:47:00 AM UTC (TECH: Hittahem) 43049-6 Protein [Presence] in Urine by Test strip N 30 (1+) mg/dL NEGATIVE March 23, 2023 9:47:00 AM UTC (TECH: Hittahem) 14308-6 Urobilinogen [Mass/volume] in Urine by Automated test strip N NORM NORMAL March 23, 2023 9:47:00 AM UTC (TECH: Hittahem) 27656-9 Nitrate [Presence] in Urine N NEGATIVE NEGATIVE March 23, 2023 9:47:00 AM UTC (TECH: Hittahem) 47858-8 Leukocytes [#/volume] in Urine by Test strip N NEGATIVE NEGATIVE March 23, 2023 9:47:00 AM UTC (TECH: Hittahem) 65618-1 Other elements in Urine sediment N NOT REQUIRED March 23, 2023 9:47:00 AM UTC (TECH: Hittahem) 94749-3 Microscopic observation [Identifier] in Urine sediment by Light microscopy N YES March 23, 2023 9:47:00 AM UTC (TECH: Hittahem) 79708-8 Erythrocytes [#/area] in Urine sediment by Microscopy high power field N 1-5 0-3 March 23, 2023 9:47:00 AM UTC (TECH: foc.usV) 5821-4 Leukocytes [#/area] in Urine sediment by Microscopy high power field N NONE SEEN NONE SEEN March 23, 2023 9:47:00 AM UTC (TECH: foc.usV) 32966-7 Epithelial cells.squamous [#/area] in Urine sediment by Microscopy high power field N NONE SEEN NONE SEEN March 23, 2023 9:47:00 AM UTC (TECH: [employer]) 5769-5 Bacteria [#/area] in Urine sediment by Microscopy high power field N NONE SEEN NONE SEEN March 23, 2023 9:47:00 AM UTC (TECH: RJV) ORDER 1600: SARS-COV-2 SOLAN A IN HOUSE (LOINC: 09316-9) ORDER DATE: March 23, 2023 8:27:00 AM UTC Specimen Source: Nasopharyng eal PERFORMING LAB: [place] [address] Result Comment: Final Result Date: March 23, 2023 9:57:00 AM UTC (TECH: RJV) LOINC TEST FLAG [place] [address]-9 SARS-CoV-2 (COVID-19) RNA [Presence] in Respiratory specimen by MAE with probe detection N NEGATIVE NEGATIVE March 23, 2023 9:57:00 AM UTC (TECH: RJV) ORDER 1900: ALCOHOL QUANT (L OINC: 5645-7) ORDER DATE: March 23, 2023 8:29:00 AM UTC Specimen Source: Serum/Plasm a PERFORMING LAB: [place] [id number] Result Comment: Final Result Date: March 23, 2023 9:14:00 AM UTC (TECH: RJV) LOINC TEST FLAG RESULT REFERENCE RANGE UPDA YOAV BY 5645-7 Ethanol [Mass/volume] in Urine N <3 mg/dL 0 mg/dL - 10 mg/dL March 23, 2023 9:14:00 AM UTC (TECH: RJV) ORDER 2100: TROPONIN I 1 LARISSA R PROTOCOL (LOINC: 00616-2) ORDER DATE: March 23, 2023 8:31:00 AM UTC Specimen Source: Plasma PERFORMING LAB: [address] [id number] Result Comment: Final Result Date: March 23, 2023 9:50:00 AM UTC (TECH: RJV) LOINC TEST FLAG [place] [address]-5 Troponin I.cardiac panel - Serum or Plasma by High sensitivity method HH 135 ng/L 0 ng/L - 76 ng/L March 23, 2023 9:50:00 AM UTC (TECH: RJV) ORDER 2200: URINE DRUG SCREE N - MEDTOX (LOINC: 82686-3) ORDER DATE: March 23, 2023 9:15:00 AM UTC Specimen Source: URINE PERFORMING LAB: [address] [id number] Result Comment: Final Result Date: March 23, [...] 23, 2023 9:48:00 AM UTC (TECH: RJV) 69583-1 Methylenedioxymetham phetamine [Mass/volume] in Urine N NEGATIVE NEGATIVE March 23, 2023 9:48:00 AM UTC (TECH: RJV) 8220-6 Opiates [Mass/volume] in Urine N NEGATIVE NEGATIVE March 23, 2023 9:48:00 AM UTC (TECH: RJV) 91880-9 Amphetamine [Mass/vo lume] in Urine N NEGATIVE NEGATIVE March 23, 2023 9:48:00 AM UTC (TECH: RJV) 9428-4 Benzodiazepines [Mas s/volume] in Urine N NEGATIVE NEGATIVE March 23, 2023 9:48:00 AM UTC (TECH: RJV) 35544-9 Tricyclic antidepres sants [Mass/volume] in Urine N NEGATIVE NEGATIVE March 23, 2023 9:48:00 AM UTC (TECH: RJV) 3774-7 Methadone [Mass/volume] in Urine N NEGATIV E NEGATIVE March 23, 2023 9:48:00 AM UTC (TECH: RJV) 9426-8 Barbiturates [Mass/v olume] in Urine N NEGATIVE NEGATIVE March 23, 2023 9:48:00 AM UTC (TECH: RJV) 78738-7 Oxycodone [Mass/volume] in Urine N NEGATIV E NEGATIVE March 23, 2023 9:48:00 AM UTC (TECH: RJV) 3415-7 Buprenorphine [Mass/ volume] in Urine N NEGATIVE NEGATIVE March 23, 2023 9:48:00 AM UT (TECH: RJV) ORDER 2300: LACTIC ACID 3 HR REFLEX (LOINC: 99074-9) ORDER DATE: March 23, 2023 9:19:00 AM UT Specimen Source: Plasma PERFORMING LAB: [address] [id number] Result Comment: Final Result Date: March 23, 2023 11:45:00 AM UT (TECH: LT) LOINC TEST FLAG [place] [address]-1 Lactate [Moles/volume] in Plasma venous N 0.8 MMOLE/L 0.4 MMOLE/L - 2.0 MMOLE/L March 23, 2023 11:45:00 AM UT (TECH: LT) LABORATORY NARRATIVE RESULTS Information is not available RADIOLOGY RESULTS ORDER 1700: CHEST SINGLE VIE W/PORTABLE (LOINC: 31090-2) ORDER DATE: March 23, 2023 8:27:00 AM [...] Priority [place] [address] [facility] EKG study ONE TIME 0 Stat March 23, 2023 8:26:00 AM [facility] JOSE JACKSON [id number] on March 23, 2023 8:26:00 AM [facility] 600-7 INC Bacteria identified in Blood by Culture ONE TIME 0 Stat March 23, 2023 8:27:00 AM [facility] JOSE DO 5011 on March 23, 2023 8:27:00 AM [facility] 600-7 LOINC Bacteria identified in Blood by Culture ONE TIME 0 Stat March 23, 2023 8:27:00 AM [facility] 5[facility] on March 23, 2023 8:27:00 AM [facility] 52327-8 [facility] EKG study ONE TIME 0 Stat March 23, 2023 8:31:00 AM [facility] 5011 on March 23, 2023 8:31:00 AM [facility] 36277-4 [facility] Clinical sepsis symptoms present [ESRD] ONE TIME 0 Routine March 23, 2023 9:19:00 AM [facility] DARION JOHNSON on March 23, 2023 9:19:00 AM [facility] SCHEDULED PROCEDURES Code System Description Status Scheduled Date Upd ated By Patient scheduled procedure information is not available. MEDICATIONS HOME MEDICATIONS Status RXNORM Medication Dose Route Frequency Dates Comments R eported By Updated By Active 468424 amLODIPine Besylate Tablet 10 MG 10.0 MG PO DAILY Last Dose: [id number] on March 23, 2023 8:30:58 AM [facility] Active ASPIR-LOW 81.0 MG PO DAILY Last Dose: [id number] on March 23, 2023 8:30:59 AM [facility] Active 438282 atorvastatin calcium (LIPITOR) 40.0 MG PO DAILY Last Dose: [id number] on March 23, 2023 8:30:59 AM [facility] Active 200571 Carvedilol Tablet 6.25 MG 6.25 MG PO BID Last Dose: [id number] on March 23, 2023 8:30:59 AM [facility] Active 900610 Clopidogrel Bisulfate Tablet 75 MG 75.0 MG PO DAILY Last Dose: [id number] on March 23, 2023 8:31:00 AM [facility] Active 454484 Entecavir Tablet 0.5 MG 0.5 GM PO Q72H Last Dose: [id number] on March 23, 2023 8:31:00 AM [facility] Active 411991 Furosemide Tablet 20 MG 20.0 MG PO DAILY Last Dose: [id number] on March 23, 2023 8:31:00 AM [facility] Active 060793 Gabapentin Tablet 600 MG 600.0 MG PO TID Last Dose: [id number] on March 23, 2023 8:31:00 AM [facility] Active 974122 isosorbide mononitrate SR 24HR 60.0 MG PO DAILY Last Dose: [id number] on March 23, 2023 8:31:00 AM [facility] Active 037119 Levemir Solution 100 UNIT/ML 12.0 UNT SUBCUT BEDTIME Last Dose: [id number] on March 23, 2023 8:31:00 AM [facility] Active 677890 Nitroglycerin Tablet 0.4 MG 0.4 MG SUBLING [id number] Last Dose: Max 3 doses [id number] on March 23, 2023 8:31:00 AM [facility] Active 0825882 NovoLOG FlexPen Solution Pen-injector 100 UNIT/ML 5.0 UNT SUBCUT TIDWM Last Dose: [id number] on March 23, 2023 8:31:01 AM UTC DISCHARGE MEDICATIONS Status RXNORM Medication Dose Route Frequency Dates Comments Physic maia Updated By No Discharge Medication Info rmation Available INPATIENT MEDICATIONS Status RXNORM Medication Dose Route Frequency Rate Quantity Dates Comments Physician Updated By Discont inued aspirin childrens chewable 81 MG CHEW 81.0 MG BY MOUTH ONE TIME ONLY Start: [facility] 2022 9:18:0 0 AM UTC End: [facility] 2022 9:18:0 0 AM [facility] ED on March 23, 2023 9:17:00 AM UTC Discont inued 3921025 sodium chloride MINI-BAG PLUS 0.9 % 100 ML MBP KEMI 100.0 ML INTRAV ENOUS ONE TIME ONLY Start: [facility] 2022 9:48:0 0 AM UTC End: [facility] 2022 9:48:0 0 AM [facility] on March 23, 2023 9:46:00 AM UTC Discont inued 7708251 cefTRIAXone (ROCEPHIN) 2 GM SOLR 2.0 GM ONE TIME ONLY Start: [facility] 2022 9:48:0 0 AM UTC End: [facility] 2022 9:48:0 0 AM [facility] ED on March 23, 2023 9:46:00 AM UTC Discont inued 5058404 cefepime (MAXIPIME) 1 GM SOLR 1.0 GM ONE TIME ONLY Start: [facility] 2022 9:48:0 0 AM UTC End: [facility] 2022 9:48:0 0 AM [facility] INTER[facility]AC ED on March 23, 2023 9:47:00 AM UTC Discont inued 741826 hydrALAZINE (APRESOLINE ) 25 MG TABS 25.0 MG BY MOUTH ONE TIME ONLY Start: [facility] 2022 10:04: 00 AM UTC End: [facility] 2022 10:04: 00 AM [facility] ED on March 23, 2023 10:03:00 AM UTC Discont inued 624015 amLODIPine (NORVASC) 5 MG TABS 5.0 MG BY MOUTH ONE TIME ONLY [facility]: 00 AM [facility] 10:04: 00 AM [facility] ED on March 23, 2023 10:04:00 AM UTC Discont inued 263625 isosorbide dinitrate (ISORDIL) 20 MG TABS 20.0 MG BY MOUTH ONE TIME ONLY [facility] 10:10: 00 AM UTC [facility] 10:10: 00 AM [facility] ED on March 23, 2023 10:08:00 AM UTC Discont inued 976144 losartan potassium (COZAAR) 50 MG TABS 50.0 MG BY MOUTH ONE TIME ONLY Start: [facility] 2022 10:10: 00 AM UTC [facility]23 10:08:00 AM UTC Discont inued [id number] LEVOFLOXACI N IN D5W 750 MG/150ML SOLN 750.0 MG INTRAV ENOUS ONE TIME ONLY Start: [facility] [place] [facility] er 2022 10:30: 00 AM UTC End[facility] 10:30: 00 AM [facility] ED on March 23, 2023 10:29:00 AM UTC Discont inued [id number] DUONEB 0.5-2.5 MG/3 ML SOLN 1.0 NEB INHALE D ONE TIME ONLY [facility] 12:40: 00 PM UTC End[facility] 12:40: 00 PM [facility] ED on March 23, 2023 12:40:00 PM UTC Discont inued [id number] furosemide (LASIX) 40 MG TABS 40.0 MG BY MOUTH ONE TIME ONLY [facility] 12:46: 00 PM UTC [facility] 12:46: 00 PM [facility] ED on March 23, 2023 12:46:00 PM [place] SOCIAL HISTORY SOCIAL HISTORY SNOMED-CT Social History Element Description Effective Dates Offered Cessation Comment UpdatedBy [id number] Historical Tobacco smoking status Former Smoker End: February 18, 2023 5:00:00 AM [place] Not Applicable [id number] on March 21, 2023 3:04:25 PM [place] [id number] Historical Tobacco smoking status Current Every Day Smoker Refused [id number] on February 01, 2023 3:49:56 PM [place] SOCIAL HISTORY - Gender Sex: Male SOCIAL HISTORY - Sexual Behavior Sexual Orientation Gender Identity SNOMED-CT Description SNO MED -CT Description Activity Level No of Partners Partner Type UpdatedBy VITAL SIGNS PATIENT VITAL SIGNS This section displays the mo st recent value for each vital sign as of March 25, 2023 10:33:33 AM [place] Loinc Code Vital Sign Activity Date Result Updated By 8310-5 Body temperature March 23 8:22:45 AM UTC 97.8 [degF] [id number] on March 24, 2023 12:56:14 PM UT 8462-4 Diastolic blood pressure March 23, 2023 12:45:06 PM UTC 74.0 mm[Hg] [id number] on March 24, 2023 12:56:54 PM UT 8867-4 Heart rate March 23 12:45:06 PM UTC 80 /min [id number] on March 24, 2023 12:56:[place] [address]-8 Oxygen saturation in Arterial blood by Pulse oximetry March 23, 2023 12:45:06 PM UTC 99.0 % [id number] on March 24, 2023 12:56:54 PM UT 9279-1 Respiratory rate March 23 12:45:06 PM UTC 17 /min [id number] on March 24, 2023 12:56:54 PM UT 8480-6 Systolic blood pressure March 23, 2023 12:45:06 PM UTC 139.0 mm[Hg] [id number] on March 24, 2023 12:56:54 PM [place] PEDIATRIC GROWTH CHART - VITAL [...] BREATH Admission March 23, 2023 8:16:[address] [id number] Discharge March 23, 2023 12:55:00 PM [place] [facility] ENCOUNTER DIAGNOSES Notes information is not bartolome ilable. Code System Diagnosis Onset Date Diagnosis information is not available. ABSTRACT DIAGNOSES Code System Diagnosis Updated By R06.02 ICD10 SHORTNESS OF BREATH [id number] on March 25, 2023 10:32:57 AM [facility] J96.21 ICD10 ACUTE AND CHRONI C RESPIRATORY FAILURE WITH HYPOXIA [id number] on March 25, 2023 10:32:57 AM [facility] I21.4 ICD10 NON-ST ELEVATION (NSTEMI) MYOCARDIAL INFARCTION [id number] on March 25, 2023 10:32:57 AM [facility] I13.10 ICD10 HYPERTENSIVE HEA RT AND CHRONIC KIDNEY DISEASE WITHOUT HEART FAILURE, WITH STAGE 1 THROUGH STAGE 4 CHRONIC KIDNEY DISEASE, OR UNSPECIFIED CHRONIC KIDNEY DISEASE [id number] on March 25, 2023 10:32:57 AM [facility] E11.22 ICD10 TYPE 2 DIABETES MELLITUS WITH DIABETIC CHRONIC KIDNEY DISEASE [id number] on March 25, 2023 10:32:57 AM [facility] N18.9 ICD10 CHRONIC KIDNEY DISEASE, UNSP ECIFIED [id number] on March 25, 2023 10:32:57 AM [facility] Z11.52 ICD10 ENCOUNTER FOR SCREENING FOR COVID-19 [id number] on March 25, 2023 10:32:57 AM [facility] 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 WITHOUT ANGINA PECTORIS [id number] on March 25, 2023 10:32:57 AM [facility] 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, UNSPECIFIED [id number] on March 25, 2023 10:32:57 AM [facility] E78.5 ICD10 HYPERLIPIDEMIA, UNSPECIFIED [id number] on March 25, 2023 10:32:57 AM [facility] G25.81 ICD10 RESTLESS LEGS SYNDROME [id number] on March 25, 2023 10:32:57 AM [facility] K76.0 ICD10 FATTY (CHANGE OF ) LIVER, NOT ELSEWHERE CLASSIFIED [id number] on March 25, 2023 10:32:57 AM [place] J44.9 ICD10 CHRONIC OBSTRUCT ADAM PULMONARY DISEASE, UNSPECIFIED [id number] on March 25, 2023 10:32:57 AM [place] 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 PQ E7261 on March 25, 2023 10:32:57 AM [place] Z72.0 ICD10 TOBACCO USE [id number] on Dece mb2022 10:32:57 AM [place] 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0 ICD10 ALLERGY STATUS TO PENICILLIN [id number] on March 25, 2023 10:32:57 AM [facility] CARE TEAM Care Eligibility Manager Role JOSE ORLANDO Admitting PCP DECLINED Primary Care JOSE ORLANDO Referring JOSE ORLANDO Primary Attending CARE TEAM CARE 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 Role on Team Status Start Date End Date Update d By DARION GARCIA DO Referring normal February 8:22:48 AM [place] March 23, 2023 5:00:00 AM [place] [id number] on March 23, 2023 8:22:48 AM [facility] DARION GARCIA DO Attending normal February 8:22:48 AM [place] March 23, 2023 5:00:00 AM [place] [id number] on March 23, 2023 8:22:48 AM [facility] MATZEN JOSE DO Admitting normal February 8:22:47 AM UTC March 23, 2023 5:00:00 AM [place] [id number] on March 23, 2023 8:22:48 AM [place] DECLINED PCP PCP normal March 23, 2023 8:17:17 AM UTC March 23, 2023 5:00:00 AM [facility] [id number] on March 23, 2023 8:22:48 AM [facility]
--- OUTSIDE RECORDS SUMMARY | 2023-04-06 10:21 | XMS_ITS | Continuity of Care Document ---
Author Name Unknown Address [address] [place] [address] [phone] Organization [facility] Phone Care Team Providers Care Metal Grinder Name Role Phone TIAN ARMENDARIZ Admitting DECLINED, PCP Primary Care Unavailable TIAN ARMENDARIZ Unavailable TIAN ARMENDARIZ Primary Attending ALLERGIES AND ADVERSE REACTIONS ALLERGIES AND ADVERSE REACTIONS Code System Allergy Substance Adverse Reaction Date Reaction (Severity) Comment Status Reported By Updated By [id number] RXNorm PENICILLIN Rash (Moderate) active [id number] on February 03, 2023 8:20:15 AM UT FAMILY HISTORY RELATION: Father Status: Cause of : Malignant neoplastic disease Age at : 60 SNOMED-CT Diagnosis Age At Onset [id number] Malignant neoplastic disease RELATION: Mother Status: Cause of : Congestive heart failure Age at : 58 SNOMED-CT Diagnosis Age At Onset [id number] Congestive heart failure RESULTS Patient: WANDER VANN Date of : [birth year] LABORATORY RESULTS ORDER 200: ARTERIAL BLOOD GA S (LOINC: 79004-4) ORDER DATE: February 03, 2023 8:17:00 AM UTC Specimen Source: Whole Blood PERFORMING LAB: [address] [id number] Result Comment: Final Result Date: February 03, 2023 9:17:00 AM UTC (TECH: TS1) LOINC TEST FLAG [place] [address]-4 Specimen source subject [Type] N ARTERIAL February 03, 2023 9:17:00 AM UTC (TECH: TS1) 98850-7 Arterial patency Wrist artery --pre arterial puncture N YES February 03, 2023 9:17:00 AM UTC (TECH: TS1) 18056-2 Body site N RIGHT RADIAL Novembe r [...] 03, 2023 9:17:00 AM UTC (TECH: TS1) 49087-2 Bicarbonate [Moles/volume] standard in Arterial blood N 23.0 mEq/L 21 mEq/L - 25 mEq/L February 03, 2023 9:17:00 AM UTC (TECH: TS1) 57395-3 Base excess standard in Arterial blood by calculation N -2.3 February 03, 2023 9:17:00 AM UTC (TECH: TS1) 2714-4 Fractional oxyhemoglobin in Arterial blood N 90 % February 03, 2023 9:17:00 AM UTC (TECH: TS1) 3150-0 Inhaled oxygen concentration N 70.0 % February 03, 2023 9:17:00 AM UTC (TECH: TS1) 46564-6 Oxygen gas flow Oxygen delivery system N BIPAP February 03, 2023 9:17:00 AM UTC (TECH: TS1) 46981-0 Room temperature N 37.0 Nov [facility] 2022 9:17:00 AM UTC (TECH: TS1) ORDER 300: CBC AUTO W DIFF ( LOINC: 46001-6) ORDER DATE: February 03, 2023 8:17:00 AM UTC Specimen Source: Whole Blood PERFORMING LAB: [address] [id number] Result Comment: Final Result Date: February 03, [...] February 03, 2023 8:28:00 AM UTC (TECH: Apica) 718-7 Hemoglobin [Mass/volume] in Blood N 13.7 g/dL 13.5 g/dL - 17.2 g/dL February 03, 2023 8:28:00 AM UTC (TECH: Apica) 73471-5 Hematocrit [Volume Fraction] of Blood N 42.9 % 42.0 % - 52.0 % February 03, 2023 8:28:00 AM UTC (TECH: Apica) 787-2 Erythrocyte mean corpuscular volume [Entitic volume] by Automated count N 89.7 fl 80 fl - 95 fl February 03, 2023 8:28:00 AM UTC (TECH: Apica) 60647-0 Erythrocyte mean corpuscular hemoglobin [Entitic mass] in Blood from Fetus by Automated count N 28.7 pg 27.0 pg - 34.0 pg February 03, 2023 8:28:00 AM UTC (TECH: Apica) 04563-1 Erythrocyte mean corpuscular hemoglobin concentration [Mass/volume] in Blood from Fetus by Automated count L 31.9 g/dL 32.0 g/dL - 36.0 g/dL February 03, 2023 8:28:00 AM UTC (TECH: Apica) 46838-0 Platelets [#/volume] in Blood N 333 10^3/uL 150 10^3/uL - 450 10^3/uL February 03, 2023 8:28:00 AM UTC (TECH: Apica) 94550-6 Erythrocyte distribution width [Ratio] N 14.2 % 12.3 % - 15.1 % February 03, 2023 8:28:00 AM UTC (TECH: Apica) 10901-4 Platelet mean volume [Entitic volume] in Blood by Automated count H 11.4 fl 7.4 fl - 10.4 fl February 03, 2023 8:28:00 AM UTC (TECH: Apica) 45837-9 Granulocytes/100 leukocytes in Blood by Automated count [...] 03, 2023 8:28:00 AM UTC (TECH: RJV) 65646-7 Immature granulocytes [#/volume] in Blood N 0.5 % 0.0 % - 0.8 % February 03, 2023 8:28:00 AM UTC (TECH: RJV) 10276-6 Granulocytes [#/volume] in Blood by Automated count [...] 03, 2023 8:28:00 AM UTC (TECH: RJV) 45470-2 Immature granulocytes [#/volume] in Blood N 0.12 10^3/uL February 03, 2023 8:28:00 AM UTC (TECH: RJV) 62230-4 Manual differential performed [Presence] in Blood N NO February 03, 2023 8:28:00 AM UT (TECH: Apica) ORDER 400: COMP METABOLIC PA LINDA (LOINC: 27655-5) ORDER DATE: February 03, 2023 8:17:00 AM UT Specimen Source: Serum/Plasm a PERFORMING LAB: [address] [id number] Result Comment: Final Result Date: February 03, 2023 8:49:00 AM UT (TECH: Apica) LOINC TEST FLAG RESULT REFERENCE RANGE UPDA YOAV BY 2951-2 Sodium [Moles/volume ] in Serum or Plasma N 139 mmol/L 136 mmol/L - 145 mmol/L February 03, 2023 8:49:00 AM UT (TECH: Apica) 2823-3 Potassium [Moles/volume] in Serum or Plasma H 5.3 mmol/L 3.5 mmol/L - 5.1 mmol/L February 03, 2023 8:49:00 AM UT (TECH: Apica) 2075-0 Chloride [Moles/volu me] in Serum or Plasma N 102 mmol/L 98 mmol/L - 107 mmol/L February 03, 2023 8:49:00 AM UT (TECH: Apica) 2027-9 Carbon dioxide, tota l [Moles/volume] in Serum or Plasma N 26 mmol/L 21 mmol/L - 32 mmol/L February 03, 2023 8:49:00 AM UT (TECH: Apica) 93110-2 Anion gap 3 in Serum or Plasma N 11.0 February 03, 2023 8:49:00 AM UT (TECH: DandelionV) 2345-7 Glucose [Mass/volume ] in Serum or Plasma H 236 mg/dL 70 mg/dL - 110 mg/dL February 03, 2023 8:49:00 AM UT (TECH: Apica) 3094-0 Urea nitrogen [Mass/volume] in Serum or Plasma H 72 mg/dL 7 mg/dL - 18 mg/dL February 03, 2023 8:49:00 AM UT (TECH: DandelionV) 2160-0 Creatinine [Mass/volume] in Serum or Plasma H 3.8 mg/dL 0.8 mg/dL - 1.3 mg/dL February 03, 2023 8:49:00 AM UTC (Emerging Threats: Apica) 3097-3 Urea nitrogen/Creatinine [Mass Ratio] in Serum or Plasma N 18.9 Ratio 9 Ratio - 21 Ratio February 03, 2023 8:49:00 AM [facility] (Emerging Threats: Apica) 67559-2 Glomerular filtratio n rate/1.73 sq M.predicted by Creatinine-based formula (MDRD) L 18 mL/min >60 February 03, 2023 8:49:00 AM [facility] (TECH: Apica) 2885-2 Protein [Mass/volume ] in Serum or Plasma N 7.5 g/dL 6.4 g/dL - 8.2 g/dL February 03, 2023 8:49:00 AM [facility] (Emerging Threats: Apica) 1751-7 Albumin [Mass/volume ] in Serum or Plasma L 2.9 g/dL 3.4 g/dL - 5.0 g/dL February 03, 2023 8:49:00 AM [facility] (Emerging Threats: Apica) 82611-3 Calcium [Mass/volume ] in Serum or Plasma N 8.6 mg/dL 8.5 mg/dL - 10.1 mg/dL February 03, 2023 8:49:00 AM [facility] (Emerging Threats: Apica) 28458-2 Calcium [Mass/volume ] corrected for total protein in Serum or Plasma N 9.5 mg/dL 8.5 mg/dL - 10.1 mg/dL February 03, 2023 8:49:00 AM [facility] (Emerging Threats: Apica) 1975-2 Bilirubin.total [Mass/volume] in Serum or Plasma N 0.4 mg/dL 0.4 mg/dL - 1.5 mg/dL February 03, 2023 8:49:00 AM [facility] (TECH: Apica) 1920-8 Aspartate aminotransferase [Enzymatic activity/volume] in Serum or Plasma H 38 U/L 15 U/L - 37 U/L February 03, 2023 8:49:00 AM [facility] (Emerging Threats: Apica) 1742-6 Alanine aminotransferase [Enzymatic activity/volume] in Serum or Plasma N 17 U/L 12 U/L - 78 U/L February 03, 2023 8:49:00 AM [facility] (TECH: Apica) 6768-6 Alkaline phosphatase [Enzymatic activity/volume] in Serum or Plasma N 155 U/L 50 U/L - 170 U/L February 03, 2023 8:49:00 AM UTC (TECH: RJV) ORDER 700: LACTIC ACID (LOIN C: 04690-6) ORDER DATE: February 03, 2023 8:17:00 AM UTC Specimen Source: Serum/Plasm a PERFORMING LAB: [address] [id number] Result Comment: Final Result Date: February 03, 2023 8:40:00 AM UTC (TECH: RJV) LOINC TEST FLAG [place] [address]-5 Lactate [Mass/volume] in Serum or Plasma H 2.4 mmole/L 0.4 mmole/L - 2.0 mmole/L February 03, 2023 8:40:00 AM UTC (TECH: RJV) ORDER 800: PT PROTHROMBIN TI ME W INR (LOINC: 93257-4) ORDER DATE: February 03, 2023 8:17:00 AM UTC Specimen Source: Plasma PERFORMING LAB: [address] [id number] Result Comment: Final Result Date: February 03, 2023 8:35:00 AM UTC (TECH: RJV) LOINC TEST FLAG [place] [address]-8 INR in Platelet poor plasma or blood by Coagulation assay N 10.2 seconds 9.3 seconds - 11.4 seconds February 03, 2023 8:35:00 AM UTC (TECH: RJV) 6301-6 INR in Platelet poor plasma by Coagulation assay N 0.96 0.9 - 1.1 February 03, 2023 8:35:00 AM UTC (TECH: RJV) ORDER 900: PTT PARTIAL THROM B TIME (LOINC: 09455-4) ORDER DATE: February 03, 2023 8:17:00 AM UTC Specimen Source: Plasma PERFORMING LAB: [address] [id number] Result Comment: Final Result Date: February 03, 2023 8:35:00 AM UTC (TECH: RJV) LOINC TEST FLAG [place] [address]-0 Activated partial thromboplastin time (aPTT) in Platelet poor plasma by Coagulation assay L 21.9 seconds 24.5 seconds - 32.8 seconds February 03, 2023 8:35:00 AM UTC (TECH: RJV) ORDER 1000: PROCALCITONIN (L OINC: 35956-0) ORDER DATE: February 03, 2023 8:17:00 AM UTC Specimen Source: Serum/Plasm a PERFORMING LAB: [address] [id number] Result Comment: Final Result Date: February 03, 2023 9:41:00 AM UTC (TECH: RJV) LOINC TEST FLAG [place] [address]-5 Procalcitonin [Mass/volume] in Serum or Plasma N 0.29 ng/ml 0.00 ng/ml - 0.5 ng/ml February 03, 2023 9:41:00 AM UTC (TECH: RJV) ORDER 1100: UA AND MICRO/CUL T IF INDICATED (LOINC: 41009-1) ORDER DATE: February 03, 2023 8:17:00 AM UTC Specimen Source: URINE PERFORMING LAB: [address] [id number] Result Comment: Final Result Date: February 03, 2023 9:06:00 AM UTC (TECH: DandelionV) LOINC TEST FLAG RESULT REFERENCE RANGE UPDA YOAV BY 5778-6 Color of Urine N YELLOW YELLOW Novem 2022 9:04:00 AM UTC (TECH: RJV) 5767-9 Appearance of Urine N CLEAR CLEAR February 03, 2023 9:04:00 AM UTC (TECH: RJV) 5792-7 Glucose [Mass/volume] in Urine by Test strip N 50 NORMAL February 03, 2023 9:04:00 AM UTC (TECH: Apica) 42558-4 Bilirubin.total [Mass/volume] in Urine by Automated test strip N NEGATIVE NEGATIVE February 03, 2023 9:04:00 AM UTC (TECH: RJV) 5797-6 Ketones [Mass/volume] in Urine by Test strip N NEGATIVE NEGATIVE February 03, 2023 9:04:00 AM UTC (TECH: RJV) 2965-2 Specific gravity of Urine N 1.025 1.005 - 1.035 February 03, 2023 9:04:00 AM UTC (TECH: RJV) 20142-6 Erythrocytes [#/volume] in Urine by Automated test strip N 150 (3+) /mcL NEGATIVE February 03, 2023 9:04:00 AM UTC (TECH: Apica) 89535-7 pH of Urine by Automated test strip N 5.00 5.0 - 7.5 February 03, 2023 9:04:00 AM UTC (TECH: Apica) 27141-9 Protein [Presence] in Urine by Test strip N 100 (2+) mg/dL NEGATIVE February 03, 2023 9:04:00 AM UTC (TECH: Apica) 65516-3 Urobilinogen [Mass/volume] in Urine by Automated test strip N NORM NORMAL February 03, 2023 9:04:00 AM UTC (TECH: Apica) 61440-6 Nitrate [Presence] in Urine N NEGATIVE NEGATIVE February 03, 2023 9:04:00 AM UTC (TECH: Apica) 06298-1 Leukocytes [#/volume] in Urine by Test strip N NEGATIVE NEGATIVE February 03, 2023 9:04:00 AM UTC (TECH: Apica) 30700-3 Other elements in Urine sediment N NOT REQUIRED February 03, 2023 9:04:00 AM UTC (TECH: Apica) 22668-2 Microscopic observation [Identifier] in Urine sediment by Light microscopy N YES February 03, 2023 9:04:00 AM UTC (TECH: Apica) 37112-7 Erythrocytes [#/area] in Urine sediment by Microscopy high power field N 5-10 0-3 February 03, 2023 9:04:00 AM UTC (TECH: Apica) 5821-4 Leukocytes [#/area] in Urine sediment by Microscopy high power field N 1-5 NONE SEEN February 03, 2023 9:06:00 AM UTC (TECH: Apica) 34876-0 Epithelial cells.squamous [#/area] in Urine sediment by Microscopy high power field N RARE NONE SEEN February 03, 2023 9:04:00 AM UTC (TECH: Apica) 5769-5 Bacteria [#/area] in Urine sediment by Microscopy high power field N NONE SEEN NONE SEEN February 03, 2023 9:04:00 AM UTC (TECH: Apica) 44409-1 Fine Granular Casts [Presence] in Urine sediment by Light microscopy N RARE NONE SEEN February 03, 2023 9:04:00 AM UTC (TECH: Apica) 8246-1 Amorphous sediment [Presence] in Urine sediment by Light microscopy TRACE NONE SEEN February 03, 2023 9:04:00 AM UTC (TECH: RJV) ORDER 1500: B-TYPE NATRIURET IC PEPTIDE BNP (LOINC: 55911-4) ORDER DATE: February 03, 2023 8:20:00 AM UTC Specimen Source: Whole Blood PERFORMING LAB: [address] [id number] Result Comment: Final Result Date: February 03, 2023 8:48:00 AM UTC (TECH: RJV) LOINC TEST FLAG [place] [address]-8 Natriuretic peptide B [Mass/volume] in Serum or Plasma H 1590.0 pg/mL 0.0 pg/mL - 100 pg/mL February 03, 2023 8:48:00 AM UT (TECH: RJV) ORDER 1600: TROPONIN QUANT ( LOINC: 29044-5) ORDER DATE: February 03, 2023 8:32:00 AM UTC Specimen Source: Plasma PERFORMING LAB: [address] [id number] Result Comment: Final Result Date: February 03, 2023 8:50:00 AM UT (TECH: RJV) LOINC TEST FLAG [place] [address]-5 Troponin I.cardiac p reed - Serum or Plasma by High sensitivity method HH 906 ng/L 0 ng/L - 76 ng/L February 03, 2023 8:50:00 AM UT (TECH: RJV) LABORATORY NARRATIVE RESULTS Information is not available RADIOLOGY RESULTS ORDER 1400: CHEST SINGLE VIE W/PORTABLE (LOINC: 73330-3) ORDER DATE: February 03, 2023 8:17:00 AM UT PATHOLOGY NARRATIVE RESULTS Information is not available MICROBIOLOGY RESULTS No Micro Labs/Results Exist for Patient BLOOD ADMIN RESULTS Information is not available TREATMENT PLAN DISCHARGE MEDICATIONS Status RXNORM Medication Dose Route Frequency Dates Comments U pdated By Patient discharge medication information is not available. PATIENT OPEN ORDERS Code System Description Frequency Occurrences Priority [place] [address]-3 LOINC Biphasic positive airway pressure (BIPAP) activ ONE TIME 0 Stat February 03, 2023 8:13:00 AM UT KALA Dao MD [id number] on February 03, 2023 8:13:00 AM UT 600-7 LOINC Bacteria identified in Blood by Culture ONE TIME 0 Stat February 03, 2023 8:17:00 AM [facility] KALA Dao MD 473 on February 03, 2023 8:17:00 AM [facility] 600-7 [facility] Bacteria identified in Blood by Culture ONE TIME 0 Stat February 03, 2023 8:17:00 AM [facility] KALA Dao MD 473 on February 03, 2023 8:17:00 AM [facility] 59477-5 [facility] EKG study ONE TIME 0 Stat February 03, 2023 8:17:00 AM [facility] KALA Dao MD 473 on February 03, 2023 8:17:00 AM [facility] 60636-2 [facility] Clinical sepsis symptoms present [ESRD] ONE TIME 0 Stat February 03, 2023 8:17:00 AM [facility] KALA Dao MD 473 on February 03, 2023 8:17:00 AM [facility] 73765-8 [facility] Clinical sepsis symptoms present [ESRD] ONE TIME 0 Routine February 03, 2023 8:40:00 AM [facility] KALA Dao MD DSRULE on February 03, 2023 8:40:00 AM [facility] SCHEDULED PROCEDURES Code System Description Status Scheduled Date Upd ated By Patient scheduled procedure information is not available. MEDICATIONS HOME MEDICATIONS Status RXNORM Medication Dose Route Frequency Dates Comments R eported By Updated By Active amLODIPine (NORVASC) 10.0 MG PO DAILY Last Dose: [id number] on February 03, 2023 8:20:16 AM [facility] Active Aspirin 81 Tablet Chewable 81 MG 1.0 TAB PO DAILY Last Dose: [id number] on February 03, 2023 8:20:18 AM [facility] Active 762978 atorvastatin calcium (LIPITOR) 40.0 MG PO DAILY Last Dose: [id number] on February 03, 2023 8:20:18 AM [facility] Active 548149 Carvedilol Tablet 6.25 MG 1.0 TAB PO BID Last Dose: [id number] on February 03, 2023 8:20:18 AM [facility] Active 269189 Clopidogrel Bisulfate Tablet 75 MG 1.0 TAB PO DAILY Last Dose: [id number] on February 03, 2023 8:20:20 AM [facility] Active 503291 Entecavir Tablet 1 MG 0.5 MG PO DAILY Last Dose: [id number] on February 03, 2023 8:20:20 AM [facility] Active gabapentin (NEURONTIN) 600.0 MG PO TID Last Dose: [id number] on February 03, 2023 8:20:21 AM UT Active hydrochlorothi azide (HCTZ) 25.0 MG PO DAILY Last Dose: [id number] on February 03, 2023 8:20:21 AM UT Active losartan potassium (COZAAR) 50.0 MG PO BID Last Dose: [id number] on February 03, 2023 8:20:21 AM [facility] Active 891604 Nitroglycerin Tablet 0.4 MG 1.0 TAB SUBLING [id number] Last Dose: Max 3 doses [id number] on February 03, 2023 8:20:22 AM UT Active 0808287 NovoLOG FlexPen Solution Pen-injector 100 UNIT/ML 20.0 UNT SUBCUT TID Last Dose: [id number] on February 03, 2023 8:20:22 AM UT DISCHARGE MEDICATIONS Status RXNORM Medication Dose Route Frequency Dates Comments Physic maia Updated By No Discharge Medication Info rmation Available INPATIENT MEDICATIONS Status RXNORM Medication Dose Route Frequency Rate Quantity Dates Comments Physician Updated By Discont inued [id number] LORazepam (ATIVAN) 2 MG/ML SOLN 2.0 MG IV PUSH ONE TIME ONLY Start: 2022 8:25:0 0 AM UT End: 2022 8:25:0 0 AM UT KALA Dao MD INTERFAC ED on February 03, 2023 8:24:00 AM UT Discont inued 6671257 furosemide 40mg vial (LASIX) 10 MG/ML SOLN 40.0 MG IV PUSH ONE TIME ONLY Start: 2022 8:43:0 0 AM UTC End: [facility] 2022 8:43:0 0 AM UTC KALA Dao MD INTERFAC ED on February 03, 2023 8:41:00 AM UT Discont inued 0007704 sodium chloride MINI-BAG PLUS 0.9 % 100 ML MBP KEMI 100.0 ML INTRAV ENOUS ONE TIME ONLY Start: 2022 8:47:0 0 AM UTC End: [facility]2022 8:47:0 0 AM UTC KALA Dao MD INTERFAC ED on February 03, 2023 8:45:00 AM UTC Discont inued 2620839 cefTRIAXone (ROCEPHIN) 1 GM SOLR 1.0 GM ONE TIME ONLY Start: 2022 8:47:0 0 AM UTC End: 2022 8:47:0 0 AM UTC KALA Doa MD INTERFAC ED on February 03, 2023 8:46:00 AM UTC Discont inued 9743607 azithromyci n (ZITHROMAX) 500 MG SOLR 500.0 MG INTRAV ENOUS ONE TIME ONLY Start: 2022 8:47:0 0 AM UTC End: 2022 8:47:0 0 AM UTC KALA Dao MD INTERFAC ED on February 03, 2023 8:46:00 AM UTC Discont inued 542193 nitroglycer in oint (NITRO-BID) 2 % OINT 1.0 IN TOPICA L ONE TIME ONLY Start: 2022 9:13:0 0 AM UTC End: 2022 9:13:0 0 AM UTC KALA Dao MD INTERFAC ED on February 03, 2023 9:12:00 AM UTC SOCIAL HISTORY SOCIAL HISTORY SNOMED-CT Social History Element Description Effective Dates Offered Cessation Comment UpdatedBy [id number] Historical Tobacco smoking status Current Every Day Smoker Refused [id number] on February 01, 2023 3:49:56 PM UTC 6001378 Historical Tobacco smoking status Former Smoker [id number] on March 01, 2017 7:49:12 AM UTC SOCIAL HISTORY - Gender Sex: Male SOCIAL HISTORY - Sexual Behavior Sexual Orientation Gender Identity SNOMED-CT Description SNO MED -CT Description Activity Level No of Partners Partner Type UpdatedBy VITAL SIGNS PATIENT VITAL SIGNS This section displays the mo st recent value for each vital sign as of February 06, 2023 2:16:55 AM UTC Loinc Code Vital Sign Activity Date Result Updated By 8310-5 Body temperature February 03 8:29:15 AM UTC 97.0 [degF] [id number] on February 04, 2023 10:51:34 AM UTC 8462-4 Diastolic blood pressure February 03, 2023 10:00:00 AM UTC 59.0 mm[Hg] GBC4750 on February 04, 2023 10:51:52 AM UTC 8867-4 Heart rate February 03, 2023 10:44:00 AM UT 83 /min [id number] on February 04, 2023 10:51:53 AM [facility] 74898-0 Oxygen saturation in Arterial blood by Pulse oximetry February 03, 2023 10:44:00 AM UTC 96.0 % [id number] on February 04, 2023 10:51:53 AM [facility] 9279-1 Respiratory rate February 03 8:08:00 AM UTC 26 /min [id number] on February 04, 2023 10:51:31 AM [facility] 8480-6 Systolic blood pressure February 03, 2023 10:00:00 AM UT 106.0 mm[Hg] [id number] on February 04, 2023 10:51:52 AM [facility] PEDIATRIC GROWTH CHART - VITAL SIGNS [...] SOB Admission February 03, 2023 8:03:[address] [address] Discharge February 03, 2023 10:51:00 AM [facility] ENCOUNTER DIAGNOSES Notes information is not bartolome ilable. Code System Diagnosis Onset Date Diagnosis information is not available. ABSTRACT DIAGNOSES Code System Diagnosis Updated By R06.02 ICD10 SHORTNESS OF BREATH [id number] on February 05, 2023 10:54:55 AM [facility] J96.00 ICD10 ACUTE RESPIRATOR Y FAILURE, UNSPECIFIED WHETHER WITH HYPOXIA OR HYPERCAPNIA [id number] on February 05, 2023 10:54:55 AM [facility] I21.4 ICD10 NON-ST ELEVATION (NSTEMI) MYOCARDIAL INFARCTION [id number] on February 05, 2023 10:54:55 AM [facility] I13.2 ICD10 HYPERTENSIVE HEA RT AND CHRONIC KIDNEY DISEASE WITH HEART FAILURE AND WITH STAGE 5 CHRONIC KIDNEY DISEASE, OR END STAGE RENAL DISEASE [id number] on February 05, 2023 10:54:55 AM UTC I50.43 ICD10 ACUTE ON CHRONIC COMBINED SYSTOLIC (CONGESTIVE) AND DIASTOLIC (CONGESTIVE) HEART FAILURE [id number] on February 05, 2023 10:54:55 AM UTC E11.22 ICD10 TYPE 2 DIABETES MELLITUS WITH DIABETIC CHRONIC KIDNEY DISEASE [id number] on February 05, 2023 10:54:55 AM UTC N18.5 ICD10 CHRONIC KIDNEY DISEASE, STAG E 5 [id number] on February 05, 2023 10:54:55 AM UTC J44.1 ICD10 CHRONIC OBSTRUCT ADAM PULMONARY DISEASE WITH (ACUTE) EXACERBATION [id number] on February 05, 2023 10:54:55 AM UTC I25.10 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 [id number] on February 05, 2023 10:54:55 AM UTC 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, UNSPECIFIED [id number] on February 05, 2023 10:54:55 AM UT E78.5 ICD10 HYPERLIPIDEMIA, UNSPECIFIED [id number] on February 05, 2023 10:54:55 AM UT K76.0 ICD10 FATTY (CHANGE OF ) LIVER, NOT ELSEWHERE CLASSIFIED [id number] on February 05, 2023 10:54:55 AM UT G25.81 ICD10 RESTLESS LEGS SYNDROME [id number] 61 on February 05, 2023 10:54:55 AM UTC F17.200 ICD10 NICOTINE DEPENDE NCE, UNSPECIFIED, UNCOMPLICATED [id number] on February 05, 2023 10:54:55 AM UT 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 PQ E7261 on February 05, 2023 10:54:55 AM UT F32.A ICD10 DEPRESSION, UNSPECIFIED PQE7 261 on February 05, 2023 10:54:55 AM UTC Z79.4 ICD10 SAPPHIRE STYLUS GRINDER (CURRENT) USE OF I NSULIN [id number] on February 05, 2023 10:54:55 AM UTC Z79.82 ICD10 SAPPHIRE STYLUS GRINDER (CURRENT) USE OF A SPIRIN [id number] on February 05, 2023 10:54:55 AM UTC Z79.899 ICD10 OTHER SKILLED NURSING (CURRENT) DR UG THERAPY [id number] on February 05, 2023 10:54:55 AM UT Z79.02 ICD10 SAPPHIRE STYLUS GRINDER (CURRE NT) USE OF ANTITHROMBOTICS/ANTIPLATELETS [id number] on February 05, 2023 10:54:55 AM [facility] 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 KNEE [id number] on February 05, 2023 10:54:55 AM [place] Z88.0 ICD10 ALLERGY STATUS TO PENICILLIN [id number] on February 05, 2023 10:54:55 AM [facility] CARE TEAM Care Metal Grinder Role TIAN ARMENDARIZ Admitting PCP DECLINED Primary Care TIAN ARMENDARIZ Referring TIAN ARMENDARIZ 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 Role on Team Status Start Date End Date Update d By KALA Dao MD Referring normal January 8:08:05 AM [facility] February 03, 2023 5:00:00 AM [place] [id number] on February 03, 2023 8:08:05 AM [facility] KALA Dao MD Attending normal January 8:08:05 AM [facility] February 03, 2023 5:00:00 AM [facility] [id number] on February 03, 2023 8:08:05 AM [facility] KALA Dao MD Admitting normal January 8:08:05 AM [facility] February 03, 2023 5:00:00 AM [place] [id number] on February 03, 2023 8:08:05 AM [facility] DECLINED PCP PCP normal February 03 8:04:09 AM [facility] February 03, 2023 5:00:00 AM [place] [id number] on February 03, 2023 8:08:05 AM [facility]
--- OUTSIDE RECORDS SUMMARY | 2023-04-06 10:21 | XMS_ITS | Continuity of Care Document ---
Author Name Unknown Address [address] [place] [address] [phone] Organization [facility] Phone Care Team Providers Care Cork Molder Name Role Phone JOSE ORLANDO Admitting DECLINED, PCP Primary Care Unavailable JOSE ORLANDO Unavailable JOSE ORLANDO Primary Attending ALLERGIES AND ADVERSE REACTIONS ALLERGIES AND ADVERSE REACTIONS Code System Allergy Substance Adverse Reaction Date Reaction (Severity) Comment Status Reported By Updated By [id number] RXNorm PENICILLIN Rash (Moderate) active [id number] on March 23, 2023 8:30:57 AM UT FAMILY HISTORY RELATION: Father Status: Cause of : Malignant neoplastic disease Age at : 60 SNOMED-CT Diagnosis Age At Onset [id number] Malignant neoplastic disease RELATION: Mother Status: Cause of : Congestive heart failure Age at : 58 SNOMED-CT Diagnosis Age At Onset [id number] Congestive heart failure RESULTS Patient: WANDER JONES RAY Date of : May [birth year] LABORATORY RESULTS ORDER 200: ARTERIAL BLOOD GA S (LOINC: 64968-8) ORDER DATE: March 23, 2023 8:27:00 AM UTC Specimen Source: Whole Blood PERFORMING LAB: [address] [id number] Result Comment: Final Result Date: March 23, 2023 8:45:00 AM UTC (TECH: TS1) LOINC TEST FLAG [place] [address]-3 Specimen source subject [Type] N ARTERIAL March 23, 2023 8:45:00 AM UTC (TECH: TS1) 47617-0 Arterial patency Wrist artery --pre arterial puncture [...] 23, 2023 8:45:00 AM UTC (TECH: TS1) 38069-9 Bicarbonate [Moles/volume] standard in Arterial blood H 28.2 mEq/L 21 mEq/L - 25 mEq/L March 23, 2023 8:45:00 AM UTC (TECH: TS1) 19177-3 Base excess standard in Arterial blood by calculation N 4.1 March 23, 2023 8:45:00 AM UTC (TECH: TS1) 2714-4 Fractional oxyhemoglobin in Arterial blood N 100 % March 23, 2023 8:45:00 AM UTC (TECH: TS1) 3150-0 Inhaled oxygen concentration N 100.0 % March 23, 2023 8:45:00 AM UTC (TECH: TS1) 24055-5 Oxygen gas flow Oxygen delivery system N BIPAP March 23, 2023 8:45:00 AM UTC (TECH: TS1) 22062-3 Room temperature N 37.0 Dec emb 2022 8:45:00 AM UTC (TECH: TS1) ORDER 300: B-TYPE NATRIURETI C PEPTIDE BNP (LOINC: 03510-2) ORDER DATE: March 23, 2023 8:27:00 AM UT Specimen Source: Whole Blood PERFORMING LAB: [address] [id number] Result Comment: Final Result Date: March 23, 2023 9:19:00 AM UT (TECH: RJV) LOINC TEST FLAG [place] [address]-5 Natriuretic peptide B [Mass/volume] in Serum or Plasma H 1770.0 pg/mL 0.0 pg/mL - 100 pg/mL March 23, 2023 9:19:00 AM UTC (TECH: RJV) ORDER 600: CBC AUTO W DIFF ( LOINC: 57674-8) ORDER DATE: March 23, 2023 8:27:00 AM UTC Specimen Source: Whole Blood PERFORMING LAB: [address] [id number] Result Comment: Final Result Date: March 23, 2023 8:59:00 AM UTC (TECH: Rx Network) LOINC TEST FLAG RESULT REFERENCE RANGE UPDA YOAV BY 6690-2 Leukocytes [#/volume] in Blood by Automated count H 14.7 10^3/uL 4.5 10^3/uL - 11.5 10^3/uL March 23, 2023 8:59:00 AM UTC (TECH: Rx Network) 789-8 Erythrocytes [#/volume] in Blood by Automated count N 4.37 10^6/uL 4.25 10^6/uL - 5.57 10^6/uL March 23, 2023 8:59:00 AM UTC (TECH: Rx Network) 718-7 Hemoglobin [Mass/volume] in Blood L 12.3 g/dL 13.5 g/dL - 17.2 g/dL March 23, 2023 8:59:00 AM UTC (TECH: Rx Network) 74988-0 Hematocrit [Volume Fraction] of Blood L 39.5 % 42.0 % - 52.0 % March 23, 2023 8:59:00 AM UTC (TECH: Rx Network) 787-2 Erythrocyte mean corpuscular volume [Entitic volume] by Automated count N 90.4 fl 80 fl - 95 fl March 23, 2023 8:59:00 AM UTC (TECH: Rx Network) 27877-1 Erythrocyte mean corpuscular hemoglobin [Entitic mass] in Blood from Fetus by Automated count N 28.1 pg 27.0 pg - 34.0 pg March 23, 2023 8:59:00 AM UTC (TECH: Rx Network) 55976-0 Erythrocyte mean corpuscular hemoglobin concentration [Mass/volume] in Blood from Fetus by Automated count L 31.1 g/dL 32.0 g/dL - 36.0 g/dL March 23, 2023 8:59:00 AM UTC (TECH: Rx Network) 40336-1 Platelets [#/volume] in Blood N 337 10^3/uL 150 10^3/uL - 450 10^3/uL March 23, 2023 8:59:00 AM UTC (TECH: Rx Network) 73083-3 Erythrocyte distribution width [Ratio] N 13.9 % 12.3 % - 15.1 % March 23, 2023 8:59:00 AM UTC (TECH: RJV) 43144-4 Platelet mean volume [Entitic volume] in Blood by Automated count H 11.6 fl 7.4 fl - 10.4 fl March 23, 2023 8:59:00 AM UTC (TECH: RJV) 32846-1 Granulocytes/100 leukocytes in Blood by Automated count [...] 23, 2023 8:59:00 AM UTC (TECH: RJV) 43729-8 Immature granulocytes [#/volume] in Blood N 0.5 % 0.0 % - 0.8 % March 23, 2023 8:59:00 AM UTC (TECH: RJV) 17940-2 Granulocytes [#/volume] in Blood by Automated count [...] March 23, 2023 8:59:00 AM UT (TECH: Rx Network) 704-7 Basophils [#/volume] in Blood by Automated count N 0.07 10^3/uL March 23, 2023 8:59:00 AM UT (TECH: Rx Network) 45065-0 Immature granulocytes [#/volume] in Blood N 0.08 10^3/uL March 23, 2023 8:59:00 AM UT (TECH: Rx Network) 71684-0 Manual differential performed [Presence] in Blood N NO March 23, 2023 8:59:00 AM UT (TECH: Rx Network) ORDER 700: COMP METABOLIC PA LINDA (LOINC: 94426-7) ORDER DATE: March 23, 2023 8:27:00 AM UT Specimen Source: Plasma PERFORMING LAB: [address] [id number] Result Comment: Final Result Date: March 23, 2023 9:13:00 AM UT (TECH: Rx Network) LOINC TEST FLAG RESULT REFERENCE RANGE UPDA YOAV BY 2951-2 Sodium [Moles/volume ] in Serum or Plasma N 143 mmol/L 136 mmol/L - 145 mmol/L March 23, 2023 9:13:00 AM UT (TECH: Rx Network) 2823-3 Potassium [Moles/volume] in Serum or Plasma N 4.7 mmol/L 3.5 mmol/L - 5.1 mmol/L March 23, 2023 9:13:00 AM UT (TECH: Rx Network) 5-0 Chloride [Moles/volu me] in Serum or Plasma N 105 mmol/L 98 mmol/L - 107 mmol/L March 23, 2023 9:13:00 AM UT (TECH: High FidelityV) 8-9 Carbon dioxide, tota l [Moles/volume] in Serum or Plasma N 30 mmol/L 21 mmol/L - 32 mmol/L March 23, 2023 9:13:00 AM UT (TECH: Rx Network) 71541-2 Anion gap 3 in Serum or Plasma N 8.0 March 23, 2023 9:13:00 AM UT (TECH: High FidelityV) 2345-7 Glucose [Mass/volume ] in Serum or Plasma H 287 mg/dL 70 mg/dL - 110 mg/dL March 23, 2023 9:13:00 AM [facility] (TECH: Rx Network) 3094-0 Urea nitrogen [Mass/volume] in Serum or Plasma H 67 mg/dL 7 mg/dL - 18 mg/dL March 23, 2023 9:13:00 AM [facility] (TECH: High FidelityV) 2160-0 Creatinine [Mass/volume] in Serum or Plasma H 3.4 mg/dL 0.8 mg/dL - 1.3 mg/dL March 23, 2023 9:13:00 AM [facility] (TECH: Rx Network) 3097-3 Urea nitrogen/Creatinine [Mass Ratio] in Serum or Plasma N 19.7 Ratio 9 Ratio - 21 Ratio March 23, 2023 9:13:00 AM [facility] (Alector: Rx Network) 34347-1 Glomerular filtratio n rate/1.73 sq M.predicted by Creatinine-based formula (MDRD) L 20 mL/min >60 March 23, 2023 9:13:00 AM [facility] (TECH: Rx Network) 2885-2 Protein [Mass/volume ] in Serum or Plasma N 7.0 g/dL 6.4 g/dL - 8.2 g/dL March 23, 2023 9:13:00 AM [facility] (TECH: Rx Network) 1751-7 Albumin [Mass/volume ] in Serum or Plasma L 3.1 g/dL 3.4 g/dL - 5.0 g/dL March 23, 2023 9:13:00 AM [facility] (Alect[place]: Rx Network) 50561-5 Calcium [Mass/volume ] in Serum or Plasma N 8.7 mg/dL 8.5 mg/dL - 10.1 mg/dL March 23, 2023 9:13:00 AM [facility] (TECH: Rx Network) 21889-4 Calcium [Mass/volume ] corrected for total protein in Serum or Plasma N 9.4 mg/dL 8.5 mg/dL - 10.1 mg/dL March 23, 2023 9:13:00 AM [facility] (TECH: Rx Network) 1975-2 Bilirubin.total [Mass/volume] in Serum or Plasma N 0.6 mg/dL 0.4 mg/dL - 1.5 mg/dL March 23, 2023 9:13:00 AM [facility] (TECH: RJV) 1920-8 Aspartate aminotransferase [Enzymatic activity/volume] in Serum or Plasma H 48 U/L 15 U/L - 37 U/L March 23, 2023 9:13:00 AM UT (TECH: High FidelityV) 1742-6 Alanine aminotransferase [Enzymatic activity/volume] in Serum or Plasma N 31 U/L 12 U/L - 78 U/L March 23, 2023 9:13:00 AM UT (TECH: Rx Network) 6768-6 Alkaline phosphatase [Enzymatic activity/volume] in Serum or Plasma H 232 U/L 50 U/L - 170 U/L March 23, 2023 9:13:00 AM UT (TECH: High FidelityV) ORDER 800: CK MB (LOINC: 326 73-6) ORDER DATE: March 23, 2023 8:27:00 AM UT Specimen Source: Plasma PERFORMING LAB: [place] [address] Result Comment: Final Result Date: March 23, 2023 9:13:00 AM [facility] (TECH: Rx Network) LOINC TEST FLAG [place] [address]-4 Creatine kinase.MB [Enzymatic activity/volume] in Serum or Plasma N 2.3 ng/mL 0.0 ng/mL - 3.6 ng/mL March 23, 2023 9:13:00 AM UT (TECH: High FidelityV) ORDER 900: D-DIMER QUANTITAT ADAM (LOINC: 7799-0) ORDER DATE: March 23, 2023 8:27:00 AM UT Specimen Source: Plasma PERFORMING LAB: [address] [id number] Result Comment: Final Result Date: March 23, 2023 9:12:00 AM UT (TECH: High FidelityV) LOINC TEST FLAG RESULT REFERENCE RANGE UPDA YOAV BY 7799-0 Fibrin D-dimer [Units/volume] in Platelet poor plasma HH 1467.26 ng/mL 0 ng/mL - 500 ng/mL March 23, 2023 9:12:00 AM UT (TECH: RJV) ORDER 1000: LACTIC ACID (PARI NC: 23727-2) ORDER DATE: March 23, 2023 8:27:00 AM UT Specimen Source: Serum/Plasm a PERFORMING LAB: [place] [address] Result Comment: Final Result Date: March 23, 2023 9:19:00 AM UTC (TECH: RJV) LOINC TEST FLAG [place] [address]-5 Lactate [Mass/volume] in Serum or Plasma H 2.1 mmole/L 0.4 mmole/L - 2.0 mmole/L March 23, 2023 9:19:00 AM UTC (TECH: RJV) ORDER 1100: PT PROTHROMBIN T VINCENT W INR (LOINC: 35031-4) ORDER DATE: March 23, 2023 8:27:00 AM UTC Specimen Source: Plasma PERFORMING LAB: [address] [id number] Result Comment: Final Result Date: March 23, 2023 8:59:00 AM UTC (TECH: RJV) LOINC TEST [place] [address]-6 INR in Platelet poor plasma or blood by Coagulation assay N 10.0 seconds 9.1 seconds - 12.0 seconds March 23, 2023 8:59:00 AM UTC (TECH: RJV) 6301-6 INR in Platelet poor plasma by Coagulation assay N 0.91 0.9 - 1.1 March 23, 2023 8:59:00 AM UTC (TECH: RJV) ORDER 1200: PTT PARTIAL THRO MB TIME (LOINC: 55425-5) ORDER DATE: March 23, 2023 8:27:00 AM UTC Specimen Source: Plasma PERFORMING LAB: [address] [id number] Result Comment: Final Result Date: March 23, 2023 8:59:00 AM UTC (TECH: RJV) LOINC TEST FLAG [place] [address]-1 Activated partial thromboplastin time (aPTT) in Platelet poor plasma by Coagulation assay L 20.5 seconds 24.5 seconds - 32.8 seconds March 23, 2023 8:59:00 AM UTC (TECH: RJV) ORDER 1300: TROPONIN QUANT ( LOINC: 31002-8) ORDER DATE: March 23, 2023 8:27:00 AM UTC Specimen Source: Plasma PERFORMING LAB: [address] [id number] Result Comment: Final Result Date: March 23, 2023 9:14:00 AM UTC (TECH: RJV) LOINC TEST [place] [address]-2 Troponin I.cardiac panel - Serum or Plasma by High sensitivity method HH 138 ng/L 0 ng/L - 76 ng/L March 23, 2023 9:14:00 AM UTC (TECH: High FidelityV) ORDER 1400: INFLUENZA A/B SC REEN (LOINC: 87499-4) ORDER DATE: March 23, 2023 8:27:00 AM UTC Specimen Source: Swab PERFORMING LAB: [address] [id number] Result Comment: Final Result Date: March 23, 2023 9:11:00 AM UTC (TECH: High FidelityV) LOINC TEST FLAG [place] [address]-4 Influenza virus A Ag [Presence] in Nose N negative NEGATIVE March 23, 2023 9:11:00 AM UTC (TECH: High FidelityV) 43439-2 Haemophilus influenzae B Ag [Presence] in Serum N negative NEGATIVE March 23, 2023 9:11:00 AM UTC (TECH: Rx Network) 47242-9 Internal control result N PASS PASS March 23, 2023 9:11:00 AM UTC (TECH: High FidelityV) ORDER 1500: UA AND MICRO/CUL T IF INDICATED (LOINC: 88707-3) ORDER DATE: March 23, 2023 8:27:00 AM UTC Specimen Source: URINE PERFORMING LAB: [address] [id number] Result Comment: Final Result Date: March 23, 2023 9:47:00 AM UTC (TECH: High FidelityV) LOINC TEST FLAG RESULT REFERENCE RANGE UPDA YOAV BY 5778-6 Color of Urine N STRAW YELLOW Decem 2022 9:47:00 AM UTC (TECH: RJV) 5767-9 Appearance of Urine N CLEAR CLEAR March 23, 2023 9:47:00 AM UTC (TECH: RJV) 5792-7 Glucose [Mass/volume] in Urine by Test strip N 100 NORMAL March 23, 2023 9:47:00 AM UTC (TECH: RJV) 01597-9 Bilirubin.total [Mass/volume] in Urine by Automated test strip N NEGATIVE NEGATIVE March 23, 2023 9:47:00 AM UTC (TECH: RJV) 5797-6 Ketones [Mass/volume] in Urine by Test strip N NEGATIVE NEGATIVE March 23, 2023 9:47:00 AM UTC (TECH: Rx Network) 2965-2 Specific gravity of Urine N 1.010 1.005 - 1.035 March 23, 2023 9:47:00 AM UTC (TECH: Rx Network) 48992-1 Erythrocytes [#/volume] in Urine by Automated test strip N 25 (1+) /mcL NEGATIVE March 23, 2023 9:47:00 AM UTC (TECH: Rx Network) 87496-3 pH of Urine by Automated test strip N 6.00 5.0 - 7.5 March 23, 2023 9:47:00 AM UTC (TECH: Rx Network) 02986-8 Protein [Presence] in Urine by Test strip N 30 (1+) mg/dL NEGATIVE March 23, 2023 9:47:00 AM UTC (TECH: Rx Network) 63288-3 Urobilinogen [Mass/volume] in Urine by Automated test strip N NORM NORMAL March 23, 2023 9:47:00 AM UTC (TECH: Rx Network) 75526-5 Nitrate [Presence] in Urine N NEGATIVE NEGATIVE March 23, 2023 9:47:00 AM UTC (TECH: Rx Network) 25396-3 Leukocytes [#/volume] in Urine by Test strip N NEGATIVE NEGATIVE March 23, 2023 9:47:00 AM UTC (TECH: Rx Network) 67066-6 Other elements in Urine sediment N NOT REQUIRED March 23, 2023 9:47:00 AM UTC (TECH: Rx Network) 37702-2 Microscopic observation [Identifier] in Urine sediment by Light microscopy N YES March 23, 2023 9:47:00 AM UTC (TECH: Rx Network) 92545-3 Erythrocytes [#/area] in Urine sediment by Microscopy high power field N 1-5 0-3 March 23, 2023 9:47:00 AM UTC (TECH: High FidelityV) 5821-4 Leukocytes [#/area] in Urine sediment by Microscopy high power field N NONE SEEN NONE SEEN March 23, 2023 9:47:00 AM UTC (TECH: High FidelityV) 85316-7 Epithelial cells.squamous [#/area] in Urine sediment by Microscopy high power field N NONE SEEN NONE SEEN March 23, 2023 9:47:00 AM UTC (TECH: RJLIFEMODELER) 5769-5 Bacteria [#/area] in Urine sediment by Microscopy high power field N NONE SEEN NONE SEEN March 23, 2023 9:47:00 AM UTC (TECH: RJV) ORDER 1600: SARS-COV-2 SOLAN A IN HOUSE (LOINC: 61530-1) ORDER DATE: March 23, 2023 8:27:00 AM UTC Specimen Source: Nasopharyng eal PERFORMING LAB: [place] [address] Result Comment: Final Result Date: March 23, 2023 9:57:00 AM UTC (TECH: RJV) LOINC TEST FLAG [place] [address]-5 SARS-CoV-2 (COVID-19) RNA [Presence] in Respiratory specimen by MEA with probe detection N NEGATIVE NEGATIVE March 23, 2023 9:57:00 AM UTC (TECH: RJV) ORDER 1900: ALCOHOL QUANT (L OINC: 5645-7) ORDER DATE: March 23, 2023 8:29:00 AM UTC Specimen Source: Serum/Plasm a PERFORMING LAB: [place] [address] Result Comment: Final Result Date: March 23, 2023 9:14:00 AM UTC (TECH: RJV) LOINC TEST FLAG RESULT REFERENCE RANGE UPDA YOAV BY 5645-7 Ethanol [Mass/volume] in Urine N <3 mg/dL 0 mg/dL - 10 mg/dL March 23, 2023 9:14:00 AM UTC (TECH: RJV) ORDER 2100: TROPONIN I 1 LARISSA R PROTOCOL (LOINC: 09128-9) ORDER DATE: March 23, 2023 8:31:00 AM UTC Specimen Source: Plasma PERFORMING LAB: [address] [id number] Result Comment: Final Result Date: March 23, 2023 9:50:00 AM UTC (TECH: RJV) LOINC TEST FLAG [place] [address]-8 Troponin I.cardiac panel - Serum or Plasma by High sensitivity method HH 135 ng/L 0 ng/L - 76 ng/L March 23, 2023 9:50:00 AM UTC (TECH: RJV) ORDER 2200: URINE DRUG SCREE N - MEDTOX (LOINC: 74525-6) ORDER DATE: March 23, 2023 9:15:00 AM UTC Specimen Source: URINE PERFORMING LAB: [address] [id number] Result Comment: Final Result Date: March 23, [...] 23, 2023 9:48:00 AM UTC (TECH: RJV) 61530-6 Methylenedioxymetham phetamine [Mass/volume] in Urine N NEGATIVE NEGATIVE March 23, 2023 9:48:00 AM UTC (TECH: RJV) 8220-6 Opiates [Mass/volume] in Urine N NEGATIVE NEGATIVE March 23, 2023 9:48:00 AM UTC (TECH: RJV) 39783-2 Amphetamine [Mass/vo lume] in Urine N NEGATIVE NEGATIVE March 23, 2023 9:48:00 AM UTC (TECH: RJV) 9428-4 Benzodiazepines [Mas s/volume] in Urine N NEGATIVE NEGATIVE March 23, 2023 9:48:00 AM UTC (TECH: RJV) 73907-1 Tricyclic antidepres sants [Mass/volume] in Urine N NEGATIVE NEGATIVE March 23, 2023 9:48:00 AM UTC (TECH: RJV) 3774-7 Methadone [Mass/volume] in Urine N NEGATIV E NEGATIVE March 23, 2023 9:48:00 AM UTC (TECH: RJV) 9426-8 Barbiturates [Mass/v olume] in Urine N NEGATIVE NEGATIVE March 23, 2023 9:48:00 AM UTC (TECH: RJV) 67962-8 Oxycodone [Mass/volume] in Urine N NEGATIV E NEGATIVE March 23, 2023 9:48:00 AM UTC (TECH: RJV) 3415-7 Buprenorphine [Mass/ volume] in Urine N NEGATIVE NEGATIVE March 23, 2023 9:48:00 AM [facility] (TECH: RJV) ORDER 2300: LACTIC ACID 3 HR REFLEX (LOINC: 32672-8) ORDER DATE: March 23, 2023 9:19:00 AM [facility] Specimen Source: Plasma PERFORMING LAB: [address] [id number] Result Comment: Final Result Date: March 23, 2023 11:45:00 AM [facility] (TECH: LT) [facility] TEST FLAG [place] [address]-9 Lactate [Moles/volume] in Plasma venous N 0.8 MMOLE/L 0.4 MMOLE/L - 2.0 MMOLE/L March 23, 2023 11:45:00 AM [facility] (TECH: LT) LABORATORY NARRATIVE RESULTS Information is not available RADIOLOGY RESULTS ORDER 1700: CHEST SINGLE VIE W/PORTABLE (INC: 77541-1) ORDER DATE: March 23, 2023 8:27:00 AM [facility] PATHOLOGY NARRATIVE RESULTS Information is not available MICROBIOLOGY RESULTS No Micro Labs/Results Exist for Patient BLOOD ADMIN RESULTS Information is not available TREATMENT PLAN DISCHARGE MEDICATIONS Status RXNORM Medication Dose Route Frequency Dates Comments U pdated By Patient discharge medication information is not available. PATIENT OPEN ORDERS Code System Description Frequency Occurrences Priority [place] [address]-9 [facility] EKG study ONE TIME 0 Stat March 23, 2023 8:26:00 [id number] on March 23, 2023 8:26:00 AM [facility] 26995-4 [facility] EKG study ONE TIME 0 Stat March 23, 2023 8:31:00 AM [facility] 5011 on March 23, 2023 8:31:00 AM [facility] 88220-6 [facility] Clinical sepsis symptoms present [ESRD] ONE TIME 0 Routine March 23, 2023 9:19:00 AM [facility] JOSE JACKSON DSRULE on March 23, 2023 9:19:00 AM [facility] SCHEDULED PROCEDURES Code System Description Status Scheduled Date Upd ated By Patient scheduled procedure information is not available. MEDICATIONS HOME MEDICATIONS Status RXNORM Medication Dose Route Frequency Dates Comments R eported By Updated By Active 902222 amLODIPine Besylate Tablet 10 MG 10.0 MG PO DAILY Last Dose: [id number] on March 23, 2023 8:30:58 AM [facility] Active ASPIR-LOW 81.0 MG PO DAILY Last Dose: [id number] on March 23, 2023 8:30:59 AM [facility] Active 133268 atorvastatin calcium (LIPITOR) 40.0 MG PO DAILY Last Dose: [id number] on March 23, 2023 8:30:59 AM [facility] Active 315517 Carvedilol Tablet 6.25 MG 6.25 MG PO BID Last Dose: [id number] on March 23, 2023 8:30:59 AM [facility] Active 000207 Clopidogrel Bisulfate Tablet 75 MG 75.0 MG PO DAILY Last Dose: [id number] on March 23, 2023 8:31:00 AM [facility] Active 830438 Entecavir Tablet 0.5 MG 0.5 GM PO Q72H Last Dose: [id number] on March 23, 2023 8:31:00 AM [facility] Active 698220 Furosemide Tablet 20 MG 20.0 MG PO DAILY Last Dose: [id number] on March 23, 2023 8:31:00 AM [facility] Active 608018 Gabapentin Tablet 600 MG 600.0 MG PO TID Last Dose: [id number] on March 23, 2023 8:31:00 AM [facility] Active 645190 isosorbide mononitrate SR 24HR 60.0 MG PO DAILY Last Dose: [id number] on March 23, 2023 8:31:00 AM [facility] Active 262595 Levemir Solution 100 UNIT/ML 12.0 UNT SUBCUT BEDTIME Last Dose: [id number] on March 23, 2023 8:31:00 AM [facility] Active 427149 Nitroglycerin Tablet 0.4 MG 0.4 MG SUBLING [id number] Last Dose: Max 3 doses [id number] on March 23, 2023 8:31:00 AM [facility] Active 8176659 NovoLOG FlexPen Solution Pen-injector 100 UNIT/ML 5.0 UNT SUBCUT TIDWM Last Dose: [id number] on March 23, 2023 8:31:01 AM [facility] DISCHARGE MEDICATIONS Status RXNORM Medication Dose Route Frequency Dates Comments Physic maia Updated By No Discharge Medication Info rmation Available INPATIENT MEDICATIONS Status RXNORM Medication Dose Route Frequency Rate Quantity Dates Comments Physician Updated By Iliana inued aspirin childrens chewable 81 MG CHEW 81.0 MG BY MOUTH ONE TIME ONLY [facility]0 0 AM UTC End: [facility] er 2022 9:18:0 0 AM UTC [facility] ED on March 23, 2023 9:17:00 AM UTC Discont inued 0620016 sodium chloride MINI-BAG PLUS 0.9 % 100 ML MBP KEMI 100.0 ML INTRAV ENOUS ONE TIME ONLY Start: [facility] er 2022 9:48:0 0 AM UTC End: Dece[facility] er 2022 9:48:0 0 AM UTC [facility] INTER[facility] ED on March 23, 2023 9:46:00 AM UTC Discont inued 0978702 cefTRIAXone (ROCEPHIN) 2 GM SOLR 2.0 GM ONE TIME ONLY Start: [facility] 2022 9:48:0 0 AM [facility] 9:48:0 0 AM UTC [facility] INTER[facility] ED on March 23, 2023 9:46:00 AM UTC Discont inued 6701493 cefepime (MAXIPIME) 1 GM SOLR 1.0 GM ONE TIME ONLY Start: [facility] er 2022 9:48:0 0 AM [facility] 9:48:0 0 AM UTC [facility] INTER[facility] ED on March 23, 2023 9:47:00 AM UTC Discont inued 341248 hydrALAZINE (APRESOLINE ) 25 MG TABS 25.0 MG BY MOUTH ONE TIME ONLY Start: [facility] 2022 10:04: 00 AM [facility] 10:04: 00 AM UTC [facility] INTER[facility] ED on March 23, 2023 10:03:00 AM UTC Discont inued 568238 amLODIPine (NORVASC) 5 MG TABS 5.0 MG BY MOUTH ONE TIME ONLY Start: [facility] er 2022 10:04: 00 AM UTC End: [facility] er 2022 10:04: 00 AM UTC [facility] INTER[facility]AC ED on March 23, 2023 10:04:00 AM UTC Discont inued 586447 isosorbide dinitrate (ISORDIL) 20 MG TABS 20.0 MG BY MOUTH ONE TIME ONLY Start: [facility] 2022 10:10: 00 AM UTC End: [facility] 2022 10:10: 00 [facility] March 23, 2023 10:08:00 AM UTC Discont inued 056227 losartan potassium (COZAAR) 50 MG TABS 50.0 MG BY MOUTH ONE TIME ONLY Start: [facility] 2022 10:10: 00 AM UTC End: [facility] 2022 10:10: 00 [facility] on March 23, 2023 10:08:00 AM UTC Discont inued 8923806 LEVOFLOXACI N IN D5W 750 MG/150ML SOLN 750.0 MG INTRAV ENOUS ONE TIME ONLY Start: [facility] 2022 10:30: 00 AM UTC End: [facility] 10:30: [facility], [facility] 10:29:00 AM UTC Discont inued [id number] DUONEB 0.5-2.5 MG/3 ML SOLN 1.0 NEB INHALE D ONE TIME ONLY Start: [facility] 2022 12:40: 00 PM UTC End: [facility] 2022 12:40: 00 [facility] on March 23, 2023 12:40:00 PM UTC Discont inued [id number] furosemide (LASIX) 40 MG TABS 40.0 MG BY MOUTH ONE TIME ONLY Start: [facility] 2022 12:46: 00 PM UTC End: [facility] 2022 12:46: 00 PM UTC [facility] ED on March 23, 2023 12:46:00 PM UT SOCIAL HISTORY SOCIAL HISTORY SNOMED-CT Social History Element Description Effective Dates Offered Cessation Comment UpdatedBy [id number] Historical Tobacco smoking status Former Smoker End: February 18, 2023 5:00:00 AM UTC Not Applicable [id number] on March 21, 2023 3:04:25 PM [place] [id number] Historical Tobacco smoking status Current Every Day Smoker Refused [id number] on February 01, 2023 3:49:56 PM UTC SOCIAL HISTORY - Gender Sex: Male SOCIAL HISTORY - Sexual Behavior Sexual Orientation Gender Identity SNOMED-CT Description SNO MED -CT Description Activity Level No of Partners Partner Type UpdatedBy VITAL SIGNS PATIENT VITAL SIGNS This section displays the mo st recent value for each vital sign as of March 29, 2023 2:15:40 AM UTC Loinc Code Vital Sign Activity Date Result Updated By [id number] Body temperature March 23 8:22:45 AM UTC 97.8 [degF] [id number] on March 24, 2023 12:56:14 PM UTC 8462-4 Diastolic blood pressure March 23, 2023 12:45:06 PM UTC 74.0 mm[Hg] [id number] on March 24, 2023 12:56:54 PM UTC 8867-4 Heart rate March 23 12:45:06 PM UTC 80 /min [id number] on March 24, 2023 12:56:54 PM UTC 60612-0 Oxygen saturation in Arterial blood by Pulse oximetry March 23, 2023 12:45:06 PM UTC 99.0 % [id number] on March 24, 2023 12:56:54 PM UTC 9279-1 Respiratory rate March 23 12:45:06 PM UTC 17 /min [id number] on March 24, 2023 12:56:54 PM UTC 8480-6 Systolic blood pressure March 23, 2023 12:45:06 PM UTC 139.0 mm[Hg] [id number] on March 24, 2023 12:56:54 PM UTC PEDIATRIC GROWTH CHART - VITAL [...] BREATH Admission March 23, 2023 8:16:00 AM UTC [address] [id number] Discharge March 23, 2023 12:55:00 PM [facility] C [facility] ENCOUNTER DIAGNOSES Notes information is not bartolome ilable. Code System Diagnosis Onset Date Diagnosis information is not available. 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 [id number] on March 25, 2023 10:32:57 AM UT N18.9 ICD10 CHRONIC KIDNEY DISEASE, UNSP ECIFIED [id number] on March 25, 2023 10:32:57 AM UT Z11.52 ICD10 ENCOUNTER FOR SCREENING FOR COVID-19 [id number] on March 25, 2023 10:32:57 AM UT I25.10 ICD10 ATHEROSCLEROTIC HEART DISEASE OF [place] CORONARY ARTERY WITHOUT ANGINA PECTORIS [id number] on March 25, 2023 10:32:57 AM UT 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, UNSPECIFIED [id number] on March 25, 2023 10:32:57 AM UT E78.5 ICD10 HYPERLIPIDEMIA, UNSPECIFIED [id number] on March 25, 2023 10:32:57 AM UT G25.81 ICD10 RESTLESS LEGS SYNDROME [id number] on March 25, 2023 10:32:57 AM UT K76.0 ICD10 FATTY (CHANGE OF ) LIVER, NOT ELSEWHERE CLASSIFIED [id number] on March 25, 2023 10:32:57 AM UT J44.9 ICD10 CHRONIC OBSTRUCT ADAM PULMONARY DISEASE, UNSPECIFIED [id number] on March 25, 2023 10:32:57 AM UT 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 PQ [id number] on March 25, 2023 10:32:57 AM UT Z72.0 ICD10 TOBACCO USE [id number] on Dece mb2022 10:32:57 AM UT 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 [id number] on March 25, 2023 10:32:57 AM UTC Z79.82 ICD10 STEWARD/STEWARDESS SECOND (CURRENT) USE OF A SPIRIN [id number] on March 25, 2023 10:32:57 AM UTC Z79.4 ICD10 STEWARD/STEWARDESS SECOND (CURRENT) USE OF I NSULIN [id number] on March 25, 2023 10:32:57 AM UTC Z79.899 ICD10 OTHER STEWARD/STEWARDESS SECOND (CURRENT) DR RAJENDRA THERAPY [id number] on March 25, 2023 10:32:57 AM UT Z79.02 ICD10 USP (CURRE NT) USE OF ANTITHROMBOTICS/ANTIPLATELETS [id number] on March 25, 2023 10:32:57 AM UT Z95.818 ICD10 PRESENCE OF OTHE R CARDIAC IMPLANTS AND GRAFTS [id number] on March 25, 2023 10:32:57 AM UT Z88.0 ICD10 ALLERGY STATUS TO PENICILLIN [id number] on March 25, 2023 10:32:57 AM UT CARE TEAM Care [place] Molder Role JOSE ORLANDO Admitting PCP DECLINED Primary Care JOSE ORLANDO Referring JOSE ORLANDO Primary Attending CARE TEAM CARE [facility] letter carrier Role on Team Status Start Date End Date Update d By DARION GARCIA DO Referring normal February 8:22:48 AM [facility] March 23, 2023 5:00:00 AM [place] [id number] on March 23, 2023 8:22:48 AM [facility] DARION GARCIA DO Attending normal February 8:22:48 AM [facility] March 23, 2023 5:00:00 AM UT [id number] on March 23, 2023 8:22:48 AM [facility] DARION GARCIA DO Admitting normal February 8:22:47 AM UT March 23, 2023 5:00:00 AM UT [id number] on March 23, 2023 8:22:48 AM [facility] DECLINED PCP PCP normal March 23, 2023 8:17:17 AM UT March 23, 2023 5:00:00 AM UT [id number] on March 23, 2023 8:22:48 AM [facility]
--- OUTSIDE RECORDS SUMMARY | 2023-04-06 10:21 | XMS_ITS | Continuity of Care Document ---
Author Name Unknown Address [address], [place] [id number] Organization [facility] SPIBufferBox Phone Care Team Providers Care Bolt Maker Name Role Phone KEISHA ANDINO Primary Attending KEISHA ANDINO Unavailable KEISHA ANDINO Admitting DAVID POSADA Surgeon DECLINED, PCP Primary Care Unavailable ALLERGIES AND ADVERSE REACTIONS ALLERGIES AND ADVERSE REACTIONS Code System Allergy Substance Adverse Reaction Date Reaction (Severity) Comment Status Reported By Updated By [id number] RXNorm PENICILLIN Rash (Moderate) active [id number] on March 23, 2023 8:30:57 AM UTC ASSESSMENTS Congestive heart failure ; Chronic obstructive lung disease ; Coronary arteriosclerosis ; Hypertensive disorder ; Hyperlipidemia ; Myocardial infarction ; Nonalcoholic steatohepatitis ; Diabetes mellitus ; Neuropathy ; FAMILY HISTORY RELATION: Father Status: Cause of : Malignant neoplastic disease Age at : 60 SNOMED-CT Diagnosis Age At Onset [id number] Malignant neoplastic disease RELATION: Mother Status: Cause of : Congestive heart failure Age at : 58 SNOMED-CT Diagnosis Age At Onset [id number] Congestive heart failure FUNCTIONAL STATUS Note Title Nurse Discharge Note Date Of Service March 21, 2023 4: 36:46 PM UTC Created By [id number] on March 21, 2023 4:36:46 PM UTC Signed By [id number] on March 21, 2023 4:37:13 PM UTC FUNCTIONAL STATUS Section: Functional Status Comments: MENTAL STATUS Note Title Nurse Discharge Note Date Of Service March 21, 2023 4: 36:46 PM UTC Created By [id number] on March 21, 2023 4:36:46 PM UTC Signed By [id number] on March 21, 2023 4:37:13 PM UTC MENTAL STATUS Section: Cognitive Status Comments: PROBLEMS PATIENT PROBLEMS Code Description/Comments Status Updated By [id number] Congestive heart failure active euf [id number] on March 20, 2023 3:45:36 PM UT [id number] Chronic obstructive lung disease active [id number] on March 20, 2023 5:51:12 PM UT [id number] Coronary arteriosclerosis active HG E4588 on March 20, 2023 5:51:27 PM UT [id number] Hypertensive disorder active [id number] on March 20, 2023 5:51:38 PM UT [id number] Hyperlipidemia active [id number] on 2022 5:52:17 PM UT [id number] Myocardial infarction active [id number] on March 20, 2023 5:52:38 PM UT [id number] Nonalcoholic steatohepatitis active [id number] on March 20, 2023 5:52:56 PM UT [id number] Diabetes mellitus active [id number] on March 20, 2023 5:53:04 PM UT [id number] Neuropathy active [id number] on 2022 5:53:16 PM [facility] RESULTS Patient: WANDER VANN Date of : [birth year] LABORATORY RESULTS ORDER 100: COMP METABOLIC PA LINDA (LOINC: 33240-8) ORDER DATE: March 20, 2023 10:41:00 AM [facility] Specimen Source: Serum/Plasm a PERFORMING LAB: [address] [id number] Result Comment: Final Result Date: March 20, 2023 11:11:00 AM [facility] (TECH: [employer]) LOINC TEST FLAG RESULT REFERENCE RANGE UPDA YOAV BY 2951-2 Sodium [Moles/volume ] in Serum or Plasma N 145 mmol/L 136 mmol/L - 145 mmol/L March 20, 2023 11:11:00 AM [place] (TECH: [employer]) 2823-3 Potassium [Moles/volume] in Serum or Plasma N 4.5 mmol/L 3.5 mmol/L - 5.1 mmol/L March 20, 2023 11:11:00 AM [facility] (TECH: [employer]) 2075-0 Chloride [Moles/volu me] in Serum or Plasma N 107 mmol/L 98 mmol/L - 107 mmol/L March 20, 2023 11:11:00 AM [place] (TECH: [employer]) 8-9 Carbon dioxide, tota l [Moles/volume] in Serum or Plasma N 29 mmol/L 21 mmol/L - 32 mmol/L March 20, 2023 11:11:00 AM [facility] (TECH: [employer]) 09044-2 Anion gap 3 in Serum or Plasma N 9.0 March 20, 2023 11:11:00 AM [facility] (TECH: [employer]) 2345-7 Glucose [Mass/volume ] in Serum or Plasma H 164 mg/dL 70 mg/dL - 110 mg/dL March 20, 2023 11:11:00 AM [place] (TECH: [employer]) 3094-0 Urea nitrogen [Mass/volume] in Serum or Plasma H 42 mg/dL 7 mg/dL - 18 mg/dL March 20, 2023 11:11:00 AM [facility] (TECH: [employer]) 2160-0 Creatinine [Mass/volume] in Serum or Plasma H 2.5 mg/dL 0.8 mg/dL - 1.3 mg/dL March 20, 2023 11:11:00 AM [facility] (TECH: [employer]) 3097-3 Urea nitrogen/Creatinine [Mass Ratio] in Serum or Plasma N 16.8 Ratio 9 Ratio - 21 Ratio March 20, 2023 11:11:00 AM [facility] ([employer]: [employer]) 76683-8 Glomerular filtratio n rate/1.73 sq M.predicted by Creatinine-based formula (MDRD) L 29 mL/min >60 March 20, 2023 11:11:00 AM [facility] (TECH: [employer]) 2885-2 Protein [Mass/volume ] in Serum or Plasma N 6.9 g/dL 6.4 g/dL - 8.2 g/dL March 20, 2023 11:11:00 AM [place] (TECH: [employer]) 1751-7 Albumin [Mass/volume ] in Serum or Plasma L 2.8 g/dL 3.4 g/dL - 5.0 g/dL March 20, 2023 11:11:00 AM [facility] (TECH: [employer]) 45044-9 Calcium [Mass/volume ] in Serum or Plasma N 8.7 mg/dL 8.5 mg/dL - 10.1 mg/dL March 20, 2023 11:11:00 AM [place] (TECH: [employer]) 49175-7 Calcium [Mass/volume ] corrected for total protein in Serum or Plasma N 9.7 mg/dL 8.5 mg/dL - 10.1 mg/dL March 20, 2023 11:11:00 AM [facility] (TECH: [employer]) 1975-2 Bilirubin.total [Mass/volume] in Serum or Plasma N 0.8 mg/dL 0.4 mg/dL - 1.5 mg/dL March 20, 2023 11:11:00 AM [facility] (TECH: [employer]) 1920-8 Aspartate aminotransferase [Enzymatic activity/volume] in Serum or Plasma H 39 U/L 15 U/L - 37 U/L March 20, 2023 11:11:00 AM [facility] (TECH: [employer]) 1742-6 Alanine aminotransferase [Enzymatic activity/volume] in Serum or Plasma N 25 U/L 12 U/L - 78 U/L March 20, 2023 11:11:00 AM [facility] (TECH: [employer]) 6768-6 Alkaline phosphatase [Enzymatic activity/volume] in Serum or Plasma H 204 U/L 50 U/L - 170 U/L March 20, 2023 11:11:00 AM [facility] (TECH: [employer]) ORDER 200: CBC AUTO W DIFF ( LOINC: 97865-9) ORDER DATE: March 20, 2023 10:41:00 AM [facility] Specimen Source: Whole Blood PERFORMING LAB: [address] [id number] Result Comment: Final Result Date: March 20, 2023 10:55:00 AM [facility] (TECH: AC) LOINC TEST FLAG RESULT REFERENCE [...] 20, 2023 10:55:00 AM UTC (TECH: AC) 25560-7 Hematocrit [Volume Fraction] of Blood L 40.6 % 42.0 % - 52.0 % March 20, 2023 10:55:00 AM UTC (TECH: AC) 787-2 Erythrocyte mean corpuscular volume [Entitic volume] by Automated count N 89.2 fl 80 fl - 95 fl March 20, 2023 10:55:00 AM UTC (TECH: AC) 29400-0 Erythrocyte mean corpuscular hemoglobin [Entitic mass] in Blood from Fetus by Automated count N 28.4 pg 27.0 pg - 34.0 pg March 20, 2023 10:55:00 AM UTC (TECH: AC) 43855-1 Erythrocyte mean corpuscular hemoglobin concentration [Mass/volume] in Blood from Fetus by Automated count L 31.8 g/dL 32.0 g/dL - 36.0 g/dL March 20, 2023 10:55:00 AM UTC (TECH: AC) 20179-0 Platelets [#/volume] in Blood N 317 10^3/uL 150 10^3/uL - 450 10^3/uL March 20, 2023 10:55:00 AM UTC (TECH: AC) 98106-7 Erythrocyte distribution width [Ratio] N 13.8 % 12.3 % - 15.1 % March 20, 2023 10:55:00 AM UTC (TECH: AC) 50069-3 Platelet mean volume [Entitic volume] in Blood by Automated count H 11.2 fl 7.4 fl - 10.4 fl March 20, 2023 10:55:00 AM UTC (TECH: AC) 46245-4 Granulocytes/100 leukocytes in Blood by Automated count [...] 20, 2023 10:55:00 AM UTC (TECH: AC) 04860-0 Immature granulocytes [#/volume] in Blood N 0.5 % 0.0 % - 0.8 % March 20, 2023 10:55:00 AM UTC (TECH: AC) 28717-2 Granulocytes [#/volume] in Blood by Automated count [...] 20, 2023 10:55:00 AM UTC (TECH: AC) 79741-1 Immature granulocytes [#/volume] in Blood N 0.05 10^3/uL March 20, 2023 10:55:00 AM UTC (TECH: AC) 10965-7 Manual differential performed [Presence] in Blood N NO March 20, 2023 10:55:00 AM UTC (TECH: AC) ORDER 400: TROPONIN QUANT (L OINC: 02355-0) ORDER DATE: March 20, 2023 10:41:00 AM UTC Specimen Source: Serum/Plasm a PERFORMING LAB: [address] [id number] Result Comment: Final Result Date: March 20, 2023 11:12:00 AM UTC (TECH: [employer]) LOINC TEST [place] [address]-7 Troponin I.cardiac panel - Serum or Plasma by High sensitivity method HH 316 ng/L 0 ng/L - 76 ng/L March 20, 2023 11:12:00 AM UTC (TECH: [employer]) ORDER 500: MAGNESIUM (LOINC: 11815-2) ORDER DATE: March 20, 2023 10:41:00 AM UTC Specimen Source: Serum/Plasm a PERFORMING LAB: [place] [id number] Result Comment: Final Result Date: March 20, 2023 11:12:00 AM UTC (TECH: [employer]) LOINC TEST FLAG [place] [address]-1 Magnesium [Mass/volume] in Serum or Plasma N 2.1 mg/dL 1.8 mg/dL - 2.4 mg/dL March 20, 2023 11:12:00 AM UTC (TECH: [employer]) ORDER 600: LACTIC ACID (LOIN C: 19943-0) ORDER DATE: March 20, 2023 10:41:00 AM UTC Specimen Source: Serum/Plasm a PERFORMING LAB: [place] [id number] Result Comment: Final Result Date: March 20, 2023 11:12:00 AM UTC (TECH: [employer]) LOINC TEST FLAG [place] [address]-7 Lactate [Mass/volume] in Serum or Plasma N 1.8 mmole/L 0.4 mmole/L - 2.0 mmole/L March 20, 2023 11:12:00 AM UTC (TECH: [employer]) ORDER 1200: TROPONIN I 1 LARISSA R PROTOCOL (LOINC: 76799-5) ORDER DATE: March 20, 2023 12:10:00 PM UTC Specimen Source: Plasma PERFORMING LAB: [address] [id number] Result Comment: Final Result Date: March 20, 2023 12:39:00 PM UTC (TECH: [employer]) LOINC TEST [place] [address]-5 Troponin I.cardiac panel - Serum or Plasma by High sensitivity method HH 295 ng/L 0 ng/L - 76 ng/L March 20, 2023 12:39:00 PM UTC (TECH: KSM) ORDER 1300: B-TYPE NATRIURET IC PEPTIDE BNP (LOINC: 31558-6) ORDER DATE: March 20, 2023 12:10:00 PM UTC Specimen Source: Whole Blood PERFORMING LAB: [address] [id number] Result Comment: Final Result Date: March 20, 2023 12:34:00 PM UTC (TECH: [employer]) LOINC TEST FLAG [place] [address]-9 Natriuretic peptide B [Mass/volume] in Serum or Plasma H 2900.0 pg/mL 0.0 pg/mL - 100 pg/mL March 20, 2023 12:34:00 PM UTC (TECH: [employer]SM) ORDER 1400: PROCALCITONIN (L OINC: 85785-2) ORDER DATE: March 20, 2023 12:11:00 PM UTC Specimen Source: Serum/Plasm a PERFORMING LAB: [address] [id number] Result Comment: Final Result Date: March 20, 2023 12:35:00 PM UTC (TECH: [employer]) LOINC TEST [place] [address]-4 Procalcitonin [Mass/volume] in Serum or Plasma N <0.05 ng/ml 0.00 ng/ml - 0.5 ng/ml March 20, 2023 12:35:00 PM UTC (TECH: [employer]SM) ORDER 3000: CBC AUTO W DIFF (LOINC: 46279-7) ORDER DATE: March 20, 2023 3:49:00 PM UTC Specimen Source: Whole Blood PERFORMING LAB: [address] [id number] Result Comment: Final Result Date: March 21, [...] March 21, 2023 11:50:00 AM UTC (TECH: [employer]) 718-7 Hemoglobin [Mass/volume] in Blood L 9.6 g/dL 13.5 g/dL - 17.2 g/dL March 21, 2023 11:50:00 AM UTC (TECH: [employer]) 06429-4 Hematocrit [Volume Fraction] of Blood L 28.8 % 42.0 % - 52.0 % March 21, 2023 11:50:00 AM UTC (TECH: [employer]) 787-2 Erythrocyte mean corpuscular volume [Entitic volume] by Automated count N 86.5 fl 80 fl - 95 fl March 21, 2023 11:50:00 AM UTC (TECH: [employer]) 13132-4 Erythrocyte mean corpuscular hemoglobin [Entitic mass] in Blood from Fetus by Automated count N 28.8 pg 27.0 pg - 34.0 pg March 21, 2023 11:50:00 AM UTC (TECH: [employer]) 63075-7 Erythrocyte mean corpuscular hemoglobin concentration [Mass/volume] in Blood from Fetus by Automated count N 33.3 g/dL 32.0 g/dL - 36.0 g/dL March 21, 2023 11:50:00 AM UTC (TECH: [employer]) 23757-3 Platelets [#/volume] in Blood N 194 10^3/uL 150 10^3/uL - 450 10^3/uL March 21, 2023 11:50:00 AM UTC (TECH: [employer]) 05398-9 Erythrocyte distribution width [Ratio] N 13.5 % 12.3 % - 15.1 % March 21, 2023 11:50:00 AM UTC (TECH: [employer]) 33680-9 Platelet mean volume [Entitic volume] in Blood by Automated count H 11.5 fl 7.4 fl - 10.4 fl March 21, 2023 11:50:00 AM UTC (TECH: [employer]) 82855-3 Granulocytes/100 leukocytes in Blood by Automated count H 76.3 % 40 % - 75 % March 21, 2023 11:50:00 AM UTC (TECH: [employer]) 736-9 Lymphocytes/100 leukocytes in Blood by Automated count N 15.9 % 15 % - 57 % March 21, 2023 11:50:00 AM UTC (TECH: [employer]) 5905-5 Monocytes/100 leukocytes in Blood by Automated count N 7.5 % 4.0 % - 12.0 % March 21, 2023 11:50:00 AM UTC (TECH: [employer]) 713-8 Eosinophils/100 leukocytes in Blood by Automated count N 0.1 % 0.0 % - 4.0 % March 21, 2023 11:50:00 AM UTC (TECH: [employer]) 706-2 Basophils/100 leukocytes in Blood by Automated count N 0.1 % 0.0 % - 1.0 % March 21, 2023 11:50:00 AM UTC (TECH: [employer]) 45979-2 Immature granulocytes [#/volume] in Blood N 0.1 % 0.0 % - 0.8 % March 21, 2023 11:50:00 AM UTC (TECH: [employer]) 58197-0 Granulocytes [#/volume] in Blood by Automated count N 6.39 10^3/uL March 21, 2023 11:50:00 AM UTC (TECH: [employer]) 731-0 Lymphocytes [#/volume] in Blood by Automated count N 1.33 10^3/uL March 21, 2023 11:50:00 AM UTC (TECH: [employer]) 742-7 Monocytes [#/volume] in Blood by Automated count N 0.63 10^3/uL March 21, 2023 11:50:00 AM UTC (TECH: [employer]) 711-2 Eosinophils [#/volume] in Blood by Automated count N 0.01 10^3/uL March 21, 2023 11:50:00 AM UTC (TECH: [employer]) 704-7 Basophils [#/volume] in Blood by Automated count N 0.01 10^3/uL March 21, 2023 11:50:00 AM UTC (TECH: [employer]) 53757-8 Immature granulocytes [#/volume] in Blood N 0.01 10^3/uL March 21, 2023 11:50:00 AM UTC (TECH: [employer]) 27619-9 Manual differential performed [Presence] in Blood N NO March 21, 2023 11:50:00 AM UTC (TECH: [employer]) ORDER 3100: COMP METABOLIC P CECILIA (LOINC: 26166-3) ORDER DATE: March 20, 2023 3:49:00 PM UTC Specimen Source: Serum/Plasm a PERFORMING LAB: [facility] [address] [facility] [id number] Result Comment: Final Result Date: March 21, 2023 11:49:00 AM UT (TECH: [employer]) LOINC TEST FLAG RESULT REFERENCE RANGE UPDA YOAV BY 2951-2 Sodium [Moles/volume ] in Serum or Plasma N 139 mmol/L 136 mmol/L - 145 mmol/L March 21, 2023 11:49:00 AM UTC (TECH: [employer]) 2823-3 Potassium [Moles/volume] in Serum or Plasma N 4.8 mmol/L 3.5 mmol/L - 5.1 mmol/L March 21, 2023 11:49:00 AM UT (TECH: [employer]) 2075-0 Chloride [Moles/volu me] in Serum or Plasma N 105 mmol/L 98 mmol/L - 107 mmol/L March 21, 2023 11:49:00 AM UT (TECH: [employer]) 2027-9 Carbon dioxide, tota l [Moles/volume] in Serum or Plasma N 26 mmol/L 21 mmol/L - 32 mmol/L March 21, 2023 11:49:00 AM UT (TECH: [employer]) 88511-8 Anion gap 3 in Serum or Plasma N 8.0 March 21, 2023 11:49:00 AM UT (TECH: [employer]) 2345-7 Glucose [Mass/volume ] in Serum or Plasma H 135 mg/dL 70 mg/dL - 110 mg/dL March 21, 2023 11:49:00 AM UTC (TECH: [employer]) 3094-0 Urea nitrogen [Mass/volume] in Serum or Plasma H 65 mg/dL 7 mg/dL - 18 mg/dL March 21, 2023 11:49:00 AM UTC (TECH: [employer]) 2160-0 Creatinine [Mass/volume] in Serum or Plasma H 3.3 mg/dL 0.8 mg/dL - 1.3 mg/dL March 21, 2023 11:49:00 AM UT (TECH: [employer]) 3097-3 Urea nitrogen/Creatinine [Mass Ratio] in Serum or Plasma N 19.7 Ratio 9 Ratio - 21 Ratio March 21, 2023 11:49:00 AM UTC (TECH: [employer]) 92196-0 Glomerular filtratio n rate/1.73 sq M.predicted by Creatinine-based formula (MDRD) L 21 mL/min >60 March 21, 2023 11:49:00 AM [facility] ([employer]) 2885-2 Protein [Mass/volume ] in Serum or Plasma L 5.4 g/dL 6.4 g/dL - 8.2 g/dL March 21, 2023 11:49:00 AM [facility] ([employer]) 1751-7 Albumin [Mass/volume ] in Serum or Plasma L 2.3 g/dL 3.4 g/dL - 5.0 g/dL March 21, 2023 11:49:00 AM [facility] ([employer]) 07255-5 Calcium [Mass/volume ] in Serum or Plasma L 8.3 mg/dL 8.5 mg/dL - 10.1 mg/dL March 21, 2023 11:49:00 AM [facility] ([employer]) 19510-9 Calcium [Mass/volume ] corrected for total protein in Serum or Plasma N 9.7 mg/dL 8.5 mg/dL - 10.1 mg/dL March 21, 2023 11:49:00 AM [facility] ([employer]) 1975-2 Bilirubin.total [Mass/volume] in Serum or Plasma N 0.5 mg/dL 0.4 mg/dL - 1.5 mg/dL March 21, 2023 11:49:00 AM [facility] ([employer]) 1920-8 Aspartate aminotransferase [Enzymatic activity/volume] in Serum or Plasma N 26 U/L 15 U/L - 37 U/L March 21, 2023 11:49:00 AM [facility] ([employer]) 1742-6 Alanine aminotransferase [Enzymatic activity/volume] in Serum or Plasma N 18 U/L 12 U/L - 78 U/L March 21, 2023 11:49:00 AM [facility] ([employer]) 6768-6 Alkaline phosphatase [Enzymatic activity/volume] in Serum or Plasma N 139 U/L 50 U/L - 170 U/L March 21, 2023 11:49:00 AM [facility] ([employer]) ORDER 3200: MAGNESIUM (LOINC : 04739-5) ORDER DATE: March 20, 2023 3:49:00 PM UTC Specimen Source: Serum/Plasm a PERFORMING LAB: [address] [id number] Result Comment: Final Result Date: March 21, 2023 11:49:00 AM UTC (TECH: [employer]) LOINC TEST FLAG [place] [address]-9 Magnesium [Mass/volume] in Serum or Plasma N 2.0 mg/dL 1.8 mg/dL - 2.4 mg/dL March 21, 2023 11:49:00 AM UTC (TECH: [employer]) ORDER 3300: GLUCOSE BLD METE R (LOINC: 20294-2) ORDER DATE: March 20, 2023 5:05:00 PM UTC Specimen Source: Whole Blood PERFORMING LAB: [address] [id number] Result Comment: March 20, 2023 5:05:00 PM UTC Test performed by: [id number] ; Instrument: [id number] Final Result Date: March 20, 2023 5:05:00 PM UTC (TECH: [employer]) LOINC TEST FLAG [place] [address]-1 Glucose [Mass/volume] in Capillary blood by Glucometer H 167 mg/dl 70 mg/dl - 115 mg/dl March 20, 2023 5:05:00 PM UTC (TECH: [employer]) ORDER 3800: GLUCOSE BLD METE R (LOINC: 12195-3) ORDER DATE: March 20, 2023 9:08:00 PM UTC Specimen Source: Whole Blood PERFORMING LAB: [address] [id number] Result Comment: March 20, 2023 9:09:00 PM UTC Test performed by: [id number] ; Instrument: [id number] Final Result Date: March 20, 2023 9:08:00 PM UTC (TECH: [employer]) LOINC TEST [place] [address]-9 Glucose [Mass/volume] in Capillary blood by Glucometer H 351 mg/dl 70 mg/dl - 115 mg/dl March 20, 2023 9:08:00 PM UTC (TECH: [employer]) ORDER 4100: GLUCOSE BLD METE R (LOINC: 14957-5) ORDER DATE: March 21, 2023 1:12:00 AM UTC Specimen Source: Whole Blood PERFORMING LAB: [address] [id number] Result Comment: March 21, 2023 1:16:00 AM UTC Test performed by: [id number] ; Instrument: [id number] Final Result Date: March 21, 2023 1:12:00 AM UTC (TECH: [employer]) LOINC TEST FLAG [place] [address]-2 Glucose [Mass/volume] in Capillary blood by Glucometer H 418 mg/dl 70 mg/dl - 115 mg/dl March 21, 2023 1:12:00 AM UTC (TECH: [employer]) ORDER 4200: GLUCOSE BLD METE R (LOINC: 60825-1) ORDER DATE: March 21, 2023 2:15:00 AM UTC Specimen Source: Whole Blood PERFORMING LAB: [address] [id number] Result Comment: March 21, 2023 2:55:00 AM UTC Test performed by: [id number] ; Instrument: [id number] Final Result Date: March 21, 2023 2:15:00 AM UTC (TECH: [employer]) LOINC TEST FLAG [place] [address]-8 Glucose [Mass/volume] in Capillary blood by Glucometer H 393 mg/dl 70 mg/dl - 115 mg/dl March 21, 2023 2:15:00 AM UTC (TECH: HL7) ORDER 4300: GLUCOSE BLD METE R (LOINC: 97779-6) ORDER DATE: March 21, 2023 4:11:00 AM UTC Specimen Source: Whole Blood PERFORMING LAB: [address] [id number] Result Comment: March 21, 2023 8:03:00 AM UTC Test performed by: [id number] ; Instrument: [id number] Final Result Date: March 21, 2023 4:11:00 AM UTC (TECH: HL[employer]) LOINC TEST FLAG [place] [address]-2 Glucose [Mass/volume ] in Capillary blood by Glucometer H 250 mg/dl 70 mg/dl - 115 mg/dl February 4:11:00 AM UTC (TECH: HL7) LABORATORY NARRATIVE RESULTS Information is not available RADIOLOGY RESULTS ORDER 700: CHEST SINGLE VIEW /PORTABLE ([facility]: 63165-8) ORDER DATE: March 20, 2023 10:41:00 AM [facility] PATHOLOGY NARRATIVE RESULTS Information is not available MICROBIOLOGY RESULTS No Micro Labs/Results Exist for Patient BLOOD ADMIN RESULTS Information is not available TREATMENT PLAN DISCHARGE MEDICATIONS Status RXNORM Medication Dose Route Frequency Dates Comments U pdated By Continued 784173 Levemir Subcutaneous Solution 100 UNIT/ML 12 UNT SUBCUTANEOU S AT BEDTIME Prescribe d: March 21, 2023 4:11:04 PM [facility] [id number] on March 21, 2023 4:11:04 PM [facility] Continued 499561 isosorbide mononitrate SR 24HR 60 MG BY MOUTH ONCE DAILY Prescribe d: March 21, 2023 4:11:04 PM [facility] [id number] on March 21, 2023 4:11:04 PM [facility] Continued [id number] NovoLOG FlexPen Solution Pen-injector 100 UNIT/ML 5 UNT SUBCUTANEOU S THREE TIMES DAILY WITH MEALS Prescribe d: March 21, 2023 4:11:04 PM [facility] [id number] on March 21, 2023 4:11:04 PM [facility] Continued 806334 Gabapentin Oral Tablet 600 MG 600 MG BY MOUTH THREE TIMES A DAY Prescribe d: March 21, 2023 4:11:04 PM [facility] [id number] on March 21, 2023 4:11:04 PM [facility] Continued 440699 Entecavir Oral Tablet 0.5 MG 0.5 GM BY MOUTH EVERY 72 HOURS Prescribe d: March 21, 2023 4:11:04 PM [facility] [id number] on March 21, 2023 4:11:04 PM [facility] Continued 396160 Furosemide Tablet 20 MG 20 MG BY MOUTH ONCE DAILY Prescribe d: March 21, 2023 4:11:04 PM [facility] [id number] on March 21, 2023 4:11:04 PM [facility] Continued 766960 Carvedilol Tablet 6.25 MG 6.25 MG BY MOUTH TWICE A DAY Prescribe d: March 21, 2023 4:11:04 PM [facility] [id number] on March 21, 2023 4:11:04 PM [facility] Continued 400995 Clopidogrel Bisulfate Tablet 75 MG 75 MG BY MOUTH ONCE DAILY Prescribe d: March 21, 2023 4:11:04 PM [facility] [id number] on March 21, 2023 4:11:04 PM [facility] Continued [id number] Nitroglyceri n Tablet 0.4 MG 0.4 MG SUBLINGUAL EVERY FIVE MINUTES NEEDED Prescribe d: March 21, 2023 4:11:04 PM [facility] Max 3 doses [id number] on March 21, 2023 4:11:04 PM [facility] Continued [id number] ASPIR-LOW 81 MG BY MOUTH ONCE DAILY Prescrib e d: March 21, 2023 4:11:04 PM [facility] [id number] on March 21, 2023 4:11:04 PM [facility] Continued [id number] amLODIPine Besylate Oral Tablet 10 MG 10 MG BY MOUTH ONCE DAILY Prescribe d: March 21, 2023 4:11:04 PM [facility] [id number] on March 21, 2023 4:11:04 PM [facility] Continued [id number] atorvastatin calcium (LIPITOR) 40 MG BY MOUTH ONCE DAILY Prescribe d: March 21, 2023 4:11:04 PM [facility] [id number] on March 21, 2023 4:11:04 PM [facility] PATIENT OPEN ORDERS Code System Description Frequency Occurrences Priority [place] [address]-8 [facility] EKG study ONE TIME 0 Stat March 20, 2023 10:41:00 AM [facility] ALBINO HERNANDEZ [id number] on March 20, 2023 10:41:00 AM [facility] [id number] [facility] Bacteria identified in Blood by Culture ONE TIME 0 Stat March 20, 2023 10:42:00 AM [facility] ALBINO HERNANDEZ MD [id number] on March 20, 2023 5:00:00 AM [facility] 600-7 INC Bacteria identified in Blood by Culture ONE TIME 0 Stat March 20, 2023 10:42:00 AM [facility] ALBINO HERNANDEZ MD [id number] on March 20, 2023 10:03:00 AM [facility] 69134-1 [facility] Biphasic positive airway pressure (BIPAP) activ ONE TIME 0 Routine March 20, 2023 11:09:00 AM [facility] ALBINO HERNANDEZ MD [id number] on March 20, 2023 11:09:00 AM [facility] 83421-8 [facility] Admitted as an inpatient ONE TIME 0 Stat March 20, 2023 1:55:00 PM [facility] MARLENA Reynoso MD [id number] on March 20, 2023 1:55:00 PM [facility] [id number] [facility] CONSULT CARDIOPULMO NARY OXYGEN ONE TIME 0 Stat March 20, 2023 1:55:00 PM [place] MARLENA Reynoso MD [id number] on March 20, 2023 1:55:00 PM [facility] 36521-9 [facility] Provider orders ONE TIME 0 Stat March 20, 2023 1:55:00 PM [facility] MARLENA Reynoso MD 2255 on March 20, 2023 1:55:00 PM [facility] 91102-8 LOINC Diagnosis ONE TIME 0 Stat March 20, 2023 1:55:00 PM [facility] MARLENA Reynoso MD 2255 on March 20, 2023 1:55:00 PM [facility] 8716-3 [facility] Vital signs ONE TIME 0 Stat March 20, 2023 1:55:00 PM [facility] MARLENA Reynoso MD [id number] on March 20, 2023 1:55:00 PM [facility] 04404-4 [facility] Current activity level ONE TIME 0 Stat March 20, 2023 1:55:00 PM [facility] MARLENA Reynoso MD 2255 on March 20, 2023 1:55:00 PM [facility] 51154-5 LOINC Condition ONE TIME 0 Stat March 20, 2023 1:55:00 PM [place] MARLENA Reynoso MD 2255 on March 20, 2023 1:55:00 PM [facility] 52263-7 [facility] Diet [Type] ONE TIME 0 Stat March 20, 2023 1:55:00 PM [facility] MARLENA Reynoso MD 2255 on March 20, 2023 1:55:00 PM [facility] 17821-0 [facility] Admission Information ONE TIME 0 Routine March 20, 2023 3:45:00 PM [facility] THU Reynoso MD [id number] on March 20, 2023 3:49:00 PM [facility] 809724-0 [facility] Cardiopulmo nary resuscitati on orders ONE TIME 0 Routine March 20, 2023 3:45:00 PM [facility] THU Reynoso MD [id number] on March 20, 2023 3:49:00 PM [facility] 97052-0 [facility] Provider orders ONE TIME 0 Routine March 20, 2023 3:45:00 PM [facility] THU Reynoso MD [id number] on March 20, 2023 3:49:00 PM [facility] [id number] [facility] Inspiratory reserve [Volume] Respiratory system ONE TIME 0 Routine March 20, 2023 3:45:00 PM [facility] THU Reynoso MD [id number] on March 20, 2023 3:49:00 PM [facility] 16372-5 [facility] Diet [Type] ONE TIME 0 Routine March 20, 2023 3:45:00 PM [facility] THU Reynoso MD [id number] on March 20, 2023 3:49:00 PM [facility] 26761-7 [facility] History of Tobacco use ONE TIME 0 Routine March 20, 2023 3:45:00 PM [facility] THU Reynoso MD [id number] on March 20, 2023 3:49:00 PM [facility] [id number] [facility] CONSULT CARDIOPULMO NARY OXYGEN ONE TIME 0 Routine March 20, 2023 3:45:00 PM [facility] THU Reynoso MD [id number] on March 20, 2023 3:49:00 PM [facility] CONSCR [facility] CONSULT CARDIAC REHAB ONE TIME 0 Routine March 20, 2023 6:39:00 PM [facility] THU Reynoso MD [id number] on March 20, 2023 6:39:00 PM [facility] REQNUT [facility] CONSULT APPLICATIONS ENGINEERING MANAGER ONE TIME 0 Routine March 20, 2023 6:39:00 PM [facility] THU Reynoso MD [id number] on March 20, 2023 6:39:00 PM [facility] CONSPR [facility] CONSULT PULMONARY REHAB ONE TIME 0 Routine March 20, 2023 6:39:00 PM [facility] THU Reynoso MD [id number] on March 20, 2023 6:39:00 PM [facility] CONCOPD MEDHOST COPD EDUCATION FROM [employer] ONE TIME 0 Routine March 20, 2023 6:39:00 PM [facility] THU Reynoso MD [id number] on March 20, 2023 6:39:00 PM [facility] [id number] MEDHOST (C) OXYGEN PER DAY ONE TIME 0 Routine March 20, 2023 11:03:00 PM [facility] THU Reynoso MD [id number] on March 20, 2023 11:03:00 PM [facility] 42806-9 [facility] Risk for venous thromboembo lism ONE TIME 0 Routine March 21, 2023 12:07:00 AM [facility] THU Reynoso MD [id number] on March 21, 2023 12:07:00 AM [facility] 90796-8 [facility] Collection method - Specimen ONE TIME 0 Routine March 21, 2023 10:00:00 AM [facility] THU Reynoso MD [id number] on March 21, 2023 10:55:00 AM [facility] 75256-4 [facility] Risk for venous thromboembo lism ONE TIME 0 Routine March 21, 2023 1:15:00 PM [facility] THU Reynoso MD [id number] on March 21, 2023 1:15:00 PM [facility] 68785-2 [facility] Provider orders ONE TIME 0 Routine March 21, 2023 4:11:00 PM [facility] THU Reynoso MD [id number] on March 21, 2023 4:12:00 PM [facility] 56233-5 [facility] History of Tobacco use ONE TIME 0 Routine March 21, 2023 4:11:00 PM [facility] THU Reynoso MD [id number] on March 21, 2023 4:12:00 PM [facility] 59194-2 [facility] Diet [Type] ONE TIME 0 Routine March 21, 2023 4:11:00 PM [facility] THU Reynoso MD [id number] on March 21, 2023 4:12:00 PM [facility] 02913-7 [facility] Discharge diagnosis Narrative ONE TIME 0 Routine March 21, 2023 4:11:00 PM [facility] THU Reynoso MD [id number] on March 21, 2023 4:12:00 PM [facility] SCHEDULED PROCEDURES Code System Description Status Scheduled Date Upd ated By Patient scheduled procedure information is not available. HOSPITAL COURSE HOSPITAL COURSE Note Title Discharge Summary Date Of Service March 21, 2023 7: 44:01 PM [facility] Created By [id number] on March 21, 2023 7:44:01 PM [facility] Signed By [id number] on March 21, 2023 7:47:11 PM [facility] 57-year-old gentleman with p oorly-controlled insulin-dependent diabetes mellitus, related peripheral neuropathy and peripheral vascular disease status post L AKA, tobacco abuse, coronary artery disease, HFrEF (32% 02/[address] 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 Acute non ST segment elevation ME Differential includes atypical infection, STEMI, pulmonary embolism. [...] CHF exacerbation and non ST segment elevation ME. the plan was to treat him medically [...] Comments R eported By Updated By Active [id number] atorvastatin calcium (LIPITOR) 40.0 MG PO DAILY Last Dose: [id number] on March 20, 2023 11:00:32 AM [facility] Active [id number] Carvedilol Tablet 6.25 MG 6.25 MG PO BID Last Dose: [id number] on March 20, 2023 4:23:07 PM [facility] Active [id number] Clopidogrel Bisulfate Tablet 75 MG 75.0 MG PO DAILY Last Dose: [id number] on March 20, 2023 4:23:17 PM UT Active [id number] Furosemide Tablet 20 MG 20.0 MG PO DAILY Last Dose: [id number] on March 20, 2023 4:24:22 PM UT Active [id number] Nitroglycerin Tablet 0.4 MG 0.4 MG SUBLING [id number] Last Dose: Max 3 doses [id number] on March 21, 2023 4:10:16 PM UT Active [id number] NovoLOG FlexPen Solution Pen-injector 100 UNIT/ML 5.0 UNT SUBCUT TIDWM Last Dose: [id number] on March 20, 2023 3:44:54 PM UT Active [id number] Levemir Subcutaneous Solution 100 UNIT/ML 12.0 UNT SUBCUT BEDTIME Last Dose: PATIENT [id number] on March 20, 2023 3:44:49 PM UT Active [id number] amLODIPine Besylate Oral Tablet 10 MG 10.0 MG PO DAILY Last Dose: [id number] on March 20, 2023 4:22:09 PM UT Active [id number] ASPIR-LOW 81.0 MG PO DAILY Last Dose: [id number] on March 20, 2023 4:22:42 PM UT Active [id number] Entecavir Oral Tablet 0.5 MG 0.5 GM PO Q72H Last Dose: [id number] on March 20, 2023 4:23:59 PM UT Active [id number] Gabapentin Oral Tablet 600 MG 600.0 MG PO TID Last Dose: [id number] on March 20, 2023 4:24:48 PM UT DISCHARGE MEDICATIONS Status RXNORM Medication Dose Route Frequency Dates Comments Physic maia Updated By Continue d [id number] Levemir Subcutaneous Solution 100 UNIT/ML 12.0 UNT SUBCUTA NEOUS AT BEDTIME Prescri bed: [facility] 2022 4:11:04 PM UT THU Reynoso MD PHY [id number] on March 21, 2023 4:11:04 PM [facility] Continue d [id number] isosorbide mononitrate SR 24HR 60.0 MG BY MOUTH ONCE DAILY Prescri bed: [facility] 2022 4:11:04 PM UT THU Reynoso MD, PHY [id number] on March 21, 2023 4:11:04 PM [facility] Continue d [id number] NovoLOG FlexPen Solution Pen-injector 100 UNIT/ML 5.0 UNT SUBCUTA NEOUS THREE TIMES DAILY WITH MEALS Prescri bed: [facility] 2022 4:11:04 PM UT THU Reynoso MD PHY [id number] on March 21, 2023 4:11:04 PM UTC Continue d [id number] Gabapentin Oral Tablet 600 MG 600.0 MG BY MOUTH THREE TIMES A DAY Prescri bed: [facility] 2022 4:11:04 PM UT THU Reynoso MD PHY [id number] on March 21, 2023 4:11:04 PM UTC Continue d [id number] Entecavir Oral Tablet 0.5 MG 0.5 GM BY MOUTH EVERY 72 HOURS Prescri bed: [facility] 2022 4:11:04 PM UT THU Reynoso MD PHY [id number] on March 21, 2023 4:11:04 PM UTC Continue d [id number] Furosemide Tablet 20 MG 20.0 MG BY MOUTH ONCE DAILY Prescri bed: [facility] 2022 4:11:04 PM UT THU Reynoso MD PHY [id number] on March 21, 2023 4:11:04 PM UTC Continue d [id number] Carvedilol Tablet 6.25 MG 6.25 MG BY MOUTH TWICE A DAY Prescri bed: [facility] 2022 4:11:04 PM UT THU Reynoso MD PHY [id number] on March 21, 2023 4:11:04 PM UTC Continue d [id number] Clopidogrel Bisulfate Tablet 75 MG 75.0 MG BY MOUTH ONCE DAILY Prescri bed: [facility] 2022 4:11:04 PM UT THU Reynoso MD PHY [id number] on March 21, 2023 4:11:04 PM UTC Continue d [id number] Nitroglyceri n Tablet 0.4 MG 0.4 MG SUBLING UAL EVERY FIVE MINUTES NEEDED Prescri bed: [facility] 2022 4:11:04 PM UTC Max 3 doses THU Reynoso MD PHY [id number] on March 21, 2023 4:11:04 PM UTC Continue d [id number] ASPIR-LOW 81.0 MG BY MOUTH ONCE DAILY Prescri bed: [facility] 2022 4:11:04 PM UT THU Reynoso MD PHY [id number] on March 21, 2023 4:11:04 PM [facility] Continue d [id number] amLODIPine Besylate Oral Tablet 10 MG 10.0 MG BY MOUTH ONCE DAILY Prescri bed: [facility] 2022 4:11:04 PM UT THU Reynoso MD PHY [id number] on March 21, 2023 4:11:04 PM [facility] Continue d [id number] atorvastatin calcium (LIPITOR) 40.0 MG BY MOUTH ONCE DAILY Prescri bed: [facility] 2022 4:11:04 PM UT THU Reynoso MD PHY [id number] on March 21, 2023 4:11:04 PM [facility] INPATIENT MEDICATIONS Status RXNORM Medication Dose Route Frequency Rate Quantity Dates Comments Physician Updated By Discont inued [id number] nitroglycer in SL (NITROSTAT) 0.4 MG SUBL 0.4 MG SUBLIN GUAL ONE TIME ONLY Start: [facility] 2022 10:40: 00 AM UT End: [facility] 2022 10:40: 00 AM UT ALBINO HERNANDEZ MD INTERFAC ED on March 20, 2023 10:40:00 AM UT Discont inued [id number] LORazepam (ATIVAN) 2 MG/ML SOLN 2.0 MG IV PUSH ONE TIME ONLY Start: [facility] er 2022 10:44: 00 AM UTC End: [facility] 2022 10:44: 00 AM UT ALBINO HERNANDEZ MD INTERFAC ED on March 20, 2023 10:43:00 AM UT Discont inued [id number] furosemide 40mg vial (LASIX) 10 MG/ML SOLN 40.0 MG IV PUSH ONE TIME ONLY Start: [facility] er 2022 10:46: 00 AM UTC End: [facility] er 2022 10:46: 00 AM UT ALBINO HERNANDEZ MD INTERFAC ED on March 20, 2023 10:45:00 AM UT Discont inued [id number] amLODIPine (NORVASC) 5 MG TABS 5.0 MG BY MOUTH ONE TIME ONLY Start: [facility] er 2022 12:02: 00 PM UT End: [facility] 2022 12:02: 00 PM UT ALBINO HERNANDEZ MD INTERFAC ED on March 20, 2023 12:01:00 PM UTC Discont inued [id number] furosemide 40mg vial (LASIX) 10 MG/ML SOLN 40.0 MG IV PUSH ONE TIME ONLY [facility]: [facility] 12:02: 00 PM UTC End: [facility] 2022 12:02: 00 PM UTC ALBINO HERNANDEZ MD INTERFAC ED on March 20, 2023 12:02:00 PM UTC Discont inued [id number] hydrALAZINE (APRESOLINE ) 25 MG TABS 25.0 MG BY MOUTH ONE TIME ONLY Start: [facility] 20[facility] 12:48: 00 PM UTC End: [facility] 2022 12:48: 00 PM UTC ALBINO HERNANDEZ MD INTERFAC ED on March 20, 2023 12:47:00 PM UTC Discont inued [id number] metolazone (ZAROXOLYN) 5 MG TABS 5.0 MG BY MOUTH ONE TIME ONLY Start: [facility] 20[facility] 1:06:0 0 PM UTC End: [facility] 2022 1:06:0 0 PM UTC ALBINO HERNANDEZ MD INTERFAC ED on March 20, 2023 1:05:00 PM UTC Discont inued [id number] losartan potassium (COZAAR) 50 MG TABS 50.0 MG BY MOUTH ONE TIME ONLY Start: [facility] 2022 1:06:0 0 PM UTC End: [facility] 2022 1:06:0 0 PM UTC ALBINO HERNANDEZ MD INTERFAC ED on March 20, 2023 1:06:00 PM UTC Discont inued [id number] isosorbide mononitrate SR 24HR 60 MG TB24 60.0 MG BY MOUTH ONE TIME ONLY Start: [facility] 20[facility] 1:19:0 0 PM UTC End: [facility] 2022 1:19:0 0 PM UTC ALBINO HERNANDEZ MD INTERFAC ED on March 20, 2023 1:18:00 PM UTC Discont inued [id number] carvedilol (COREG) 6.25 MG TABS 6.25 MG BY MOUTH TWICE A DAY Start: [facility] 20[facility] 2:00:0 0 AM UTC End: [facility] 2022 5:00:0 0 PM UTC THU Reynoso MD [id number] on March 22, 2023 5:25:00 AM UTC Discont inued Aspirin 81 Tablet Chewable 81 MG 1.0 TAB BY MOUTH ONCE DAILY Start: [facility] 2022 2:00:0 0 PM UTC End: [facility] 2022 2:00:0 0 PM UTC THU Reynoso MD [id number] on March 20, 2023 4:12:00 PM UTC Discont inued gabapentin (NEURONTIN) 600.0 MG BY MOUTH THREE TIMES A DAY Start: [facility] 2022 8:00:0 0 PM UTC End: [facility] 2022 8:00:0 0 PM UTC THU Reynoso MD [id number] on March 20, 2023 4:16:00 PM UTC Discont inued [id number] atorvastati n calcium (LIPITOR) 40 MG TABS 40.0 MG BY MOUTH ONCE DAILY Start: [facility] 2022 2:00:0 0 PM UTC End: [facility] 2022 5:00:0 0 PM UTC THU Reynoso MD [id number] on March 22, 2023 5:25:00 AM UTC Discont inued amLODIPine (NORVASC) 10.0 MG BY MOUTH ONCE DAILY Start: [facility] 2022 2:00:0 0 PM UTC End: [facility] 2022 2:00:0 0 PM UTC THU Reynoso MD [id number] on March 20, 2023 4:12:00 PM UTC Discont inued [id number] clopidogrel (PLAVIX) 75 MG TABS 75.0 MG BY MOUTH ONCE DAILY Start: [facility] 2022 2:00:0 0 PM UTC End: [facility] 2022 5:00:0 0 PM UTC THU Reynoso MD [id number] on March 22, 2023 5:25:00 AM UTC Discont inued Levemir Subcutaneou s Solution 100 UNIT/ML 12.0 UNT SUBCUT ANEOUS AT BEDTIME Start: [facility] 2022 2:00:0 0 AM UTC End: [facility] 2022 2:00:0 0 AM UTC THU Reynoso MD [id number] on March 20, 2023 4:18:00 PM UTC Discont inued [id number] insulin lispro(DAVID LOG) 100 UNIT/ML SOLN 1.0 UNT SUBCUT ANEOUS SLIDING SCALE NEEDED Start: [facility] 20[facility] 3:45:0 0 PM UTC End: [facility] 2022 4:11:0 4 PM UTC THU Reynoso MD [id number] on March 22, 2023 5:25:00 AM UTC Discont inued [id number] dextrose SYR (D50) PFS 50 % SOLN [...] 22, 2023 5:25:00 AM UTC Discont inued [id number] hydrALAZINE (APRESOLINE ) 20 MG/ML SOLN 10.0 MG IV PUSH EVERY FOUR HOURS NEEDED Start: [facility] 2022 3:45:0 0 PM UTC End: [facility] 2022 4:11:0 4 PM UTC THU Reynoso MD [id number] on March 22, 2023 5:25:00 AM UTC Discont inued [id number] LABETALOL 5 MG/ML SOLN 10.0 MG IV PUSH EVERY TWO HOURS NEEDED Start: [facility] 2022 3:45:0 0 PM UTC End: [facility] 2022 4:11:0 4 PM UTC THU Reynoso MD [id number] on March 22, 2023 5:25:00 AM UTC Discont inued [id number] ACETAMINOPH EN 325 MG TABS 650.0 MG BY MOUTH EVERY SIX HOURS NEEDED Start: [facility] 2022 3:45:0 0 PM UTC End: [facility] 2022 4:11:0 4 PM UTC THU Reynoso MD [id number] on March 22, 2023 5:25:00 AM UTC Discont inued [id number] traZODone (DESYREL) 50 MG TABS 50.0 MG BY MOUTH AT BEDTIME NEEDED Start: [facility] 2022 3:45:0 0 PM UTC End: [facility] 2022 4:11:0 4 PM UTC THU Reynoso MD [id number] on March 22, 2023 5:25:00 AM UTC Discont inued [id number] enoxaparin (LOVENOX) 30 MG/0.3ML SOSY 30.0 MG SUBCUT ANEOUS ONCE DAILY Start: [facility] 20[facility] 2:00:0 0 PM UTC End: [facility] 2022 4:11:0 4 PM UTC THU Reynoso MD [id number] on March 22, 2023 5:25:00 AM UTC Discont inued [id number] ondansetron (ZOFRAN) 4 MG/2ML SOLN 4.0 MG IV PUSH EVERY EIGHT HOURS NEEDED Start: [facility] 20[facility] 3:45:0 0 PM UTC End: [facility] 2022 4:11:0 4 PM UTC THU Reynoso MD [id number] on March 22, 2023 5:25:00 AM UTC Discont inued [id number] ondansetron (ZOFRAN) 4 MG TBDP 4.0 MG SUBLIN GUAL EVERY EIGHT HOURS NEEDED Start: [facility] 2022 3:45:0 0 PM UTC End: [facility] 2022 4:11:0 4 PM UTC THU Reynoso MD [id number] on March 22, 2023 5:25:00 AM UTC Discont inued [id number] furosemide 40mg vial (LASIX) 10 MG/ML SOLN 80.0 MG IV PUSH ONCE DAILY Start: [facility] 20[facility] 2:00:0 0 PM UTC End: [facility] 2022 2:00:0 0 PM UTC THU Reynoso MD [id number] on March 20, 2023 4:16:00 PM UTC Discont inued [id number] isosorbide mononitrate SR 24HR 60 MG TB24 60.0 MG BY MOUTH ONCE DAILY Start: [facility] 2022 3:48:0 0 PM UTC End: [facility] 2022 5:00:0 0 PM UTC THU Reynoso MD [id number] on March 22, 2023 5:25:00 AM UTC Discont inued [id number] hydrALAZINE (APRESOLINE ) 25 MG TABS 50.0 MG BY MOUTH THREE TIMES A DAY Start: [facility] 2022 3:48:0 0 PM UTC End: [facility] 2022 4:11:0 4 PM UTC THU Reynoso MD [id number] on March 22, 2023 5:25:00 AM UTC Discont inued [id number] amLODIPine (NORVASC) 5 MG TABS 10.0 MG BY MOUTH ONCE DAILY Start: [facility] 2022 2:00:0 0 PM UTC End: [facility] 2022 4:11:0 4 PM UTC THU Reynoso MD [id number] on March 22, 2023 5:25:00 AM UTC Discont inued [id number] ASPIR-LOW 81 MG TBEC 81.0 MG BY MOUTH ONCE DAILY Start: [facility] 2022 2:00:0 0 PM UTC End: [facility] 2022 5:00:0 0 PM UTC THU Reynoso MD [id number] on March 22, 2023 5:25:00 AM UTC Discont inued [id number] furosemide 100mg vial (LASIX) 10 MG/ML SOLN 80.0 MG IV PUSH ONCE DAILY Start: [facility] 2022 2:00:0 0 PM UTC End: [facility] 2022 2:00:0 0 PM UTC THU Reynoso MD [id number] on March 21, 2023 1:19:00 PM UTC Discont inued [id number] gabapentin (NEURONTIN) 300 MG CAPS 600.0 MG BY MOUTH THREE TIMES A DAY Start: [facility] 2022 8:00:0 0 PM UTC End: [facility] 2022 4:11:0 4 PM UTC THU Reynoso MD [id number] on March 22, 2023 5:25:00 AM UTC Discont inued [id number] insulin glargine-YF GN 100 UNIT/ML SOLN 12.0 UNT SUBCUT ANEOUS AT BEDTIME Start: [facility] 2022 2:00:0 0 AM UTC End: [facility] 2022 2:06:2 6 PM UTC THU Reynoso MD [id number] on March 21, 2023 2:06:00 PM UTC Discont inued [id number] furosemide 40mg vial (LASIX) 10 MG/ML SOLN 80.0 MG IV PUSH ONCE DAILY Start: [facility] 2022 2:00:0 0 PM UTC End: [facility] 2022 2:06:2 6 PM UTC THU Reynoso MD [id number] on March 21, 2023 2:06:00 PM UTC Discont inued [id number] insulin glargine-YF GN 100 UNIT/ML SOLN 20.0 UNT SUBCUT ANEOUS AT BEDTIME Start: [facility] 2022 4:11:0 4 PM UTC End: [facility] 2022 4:11:0 4 PM UTC THU Reynoso MD [id number] on March 22, 2023 5:25:00 AM UTC Discont inued *PATIENT INFORMATION MISC 1.0 EA SEE COMMEN TS NEEDED Start: [facility] 2022 4:11:0 0 PM UTC End: [facility] 2022 5:00:0 0 PM UTC THU Reynoso MD [id number] on March 22, 2023 5:25:00 AM UTC SOCIAL HISTORY SOCIAL HISTORY SNOMED-CT Social History Element Description Effective Dates Offered Cessation Comment UpdatedBy [id number] Current Tobacco smoking status Former Smoker End: February 18, 2023 5:00:00 AM UTC Not Applicable [id number] on March 21, 2023 3:04:25 PM UTC [id number] Historical Tobacco smoking status Current Every Day Smoker Refused [id number] on February 01, 2023 3:49:56 PM UTC SOCIAL HISTORY - Gender Sex: Male SOCIAL HISTORY - Sexual Behavior Sexual Orientation Gender Identity SNOMED-CT Description SNO MED -CT Description Activity Level No of Partners Partner Type UpdatedBy VITAL SIGNS PATIENT VITAL SIGNS This section displays the mo st recent value for each vital sign as of March 23, 2023 1:25:19 PM UTC Loinc Code Vital Sign Activity Date Result Updated By 8302-2 Body height March 20 5:44:57 PM UTC 177.8 cm (70.0 in) [id number] on March 20, 2023 5:44:57 PM UTC 09959-1 Body mass index (BMI ) [Ratio] March 20, 2023 5:44:57 PM UTC 27.833 kg/m2 [id number] on March 20, 2023 5:44:57 PM UTC 3140-1 Body Surface Area Derived From Formula March 20, 2023 5:44:57 PM UTC 2.0605 m2 [id number] on March 20, 2023 5:44:57 PM UTC 8310-5 Body temperature March 21 12:09:00 PM UTC 97.4 [degF] [id number] on March 21, 2023 12:18:01 PM UTC 57174-4 Body weight Measured February 5:44:57 PM UTC 87.997 kg (194.0 lb) [id number] on March 20, 2023 5:44:57 PM UTC 8462-4 Diastolic blood pressure March 21, 2023 12:09:00 PM UTC 71.0 mm[Hg] [id number] on March 21, 2023 12:18:01 PM UTC 8867-4 Heart rate March 21 1:36:00 PM UTC 82 /min [id number] on March 21, 2023 1:36:14 PM UTC 59686-0 Oxygen saturation in Arterial blood by Pulse oximetry March 21, 2023 1:36:00 PM UTC 96.0 % [id number] on March 21, 2023 1:36:14 PM UTC 9279-1 Respiratory rate March 21 1:36:00 PM UTC 14 /min [id number] on March 21, 2023 1:36:14 PM UTC 57657-8 Spirometry panel March 21 1:36:00 PM UTC 10.0 {score} [id number] on March 21, 2023 1:36:14 PM UTC 8480-6 Systolic blood pressure March 21, 2023 12:09:00 PM [facility] 140.0 mm[Hg] [id number] on March 21, 2023 12:18:01 PM [facility] PEDIATRIC GROWTH CHART - VITAL SIGNS This section displays Head C ircumference Percentile, Weight for Length Percentile and BMI Percentile Loinc Code Pediatric Measure Age (Months) Result Updat ed By GOALS PATIENT GOALS Goal Assigned Date Updated By *ROBERT VIRAMONTES JR MAINTAINS OPTIMAL GAS EXCHANGE March 20, 2023 [id number] on March 20, 2023 6:46:03 PM [facility] *ROBERT VIRAMONTES JR OR FAMILY VERBALIZES OR DEMONSTRATES KNOWLEDGE OF DIABETES March 20, 2023 [id number] on March 20, 2023 6:46:04 PM [facility] [facility] Problems Concern Status Health Concern problem infor mation not available. Smoking Status Status Years Used Consumed packs p er day Health Concern smoking histo ry information not available. Family History Concern Status Health Concern family histor y information not available. ENCOUNTERS ENCOUNTER INFORMATION Reason for Visit PULMONARY EDEMA Admission March 20, 2023 1:57:[address] [id number] Discharge March 21, 2023 5:00:00 PM [facility] DISCHARGED TO HOME OR SELF CARE ENCOUNTER DIAGNOSES Notes information is not bartolome ilable. Code System Diagnosis Onset Date Diagnosis information is not available. ABSTRACT DIAGNOSES Code System Diagnosis Updated By I13.0 ICD10 HYPERTENSIVE HEA RT AND CHRONIC KIDNEY DISEASE WITH HEART FAILURE AND STAGE 1 THROUGH STAGE 4 CHRONIC KIDNEY DISEASE, OR UNSPECIFIED CHRONIC KIDNEY DISEASE [id number] on March 23, 2023 1:24:21 PM [facility] I13.0 ICD10 HYPERTENSIVE HEA RT AND CHRONIC KIDNEY DISEASE WITH HEART FAILURE AND STAGE 1 THROUGH STAGE 4 CHRONIC KIDNEY DISEASE, OR UNSPECIFIED CHRONIC KIDNEY DISEASE [id number] on March 23, 2023 1:24:21 PM [facility] I50.23 ICD10 ACUTE ON CHRONIC SYSTOLIC (CONGESTIVE) HEART FAILURE [id number] on March 23, 2023 1:24:21 PM [facility] I21.4 ICD10 NON-ST ELEVATION (NSTEMI) MYOCARDIAL INFARCTION [id number] on March 23, 2023 1:24:21 PM [facility] J96.21 ICD10 ACUTE AND CHRONI C RESPIRATORY FAILURE WITH HYPOXIA [id number] on March 23, 2023 1:24:21 PM [facility] B18.1 ICD10 CHRONIC VIRAL HE PATITIS B WITHOUT DELTA-AGENT [id number] on March 23, 2023 1:24:21 PM [place] N17.9 ICD10 ACUTE KIDNEY FAILURE, UNSPEC IFIED [id number] on March 23, 2023 1:24:21 PM [place] N18.30 ICD10 CHRONIC KIDNEY D ISEASE, STAGE 3 UNSPECIFIED [id number] on March 23, 2023 1:24:21 PM [place] E11.22 ICD10 TYPE 2 DIABETES MELLITUS WITH DIABETIC CHRONIC KIDNEY DISEASE [id number] on March 23, 2023 1:24:21 PM [place] 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, UNSPECIFIED [id number] on March 23, 2023 1:24:21 PM [facility] E11.51 ICD10 TYPE 2 DIABETES MELLITUS WITH DIABETIC PERIPHERAL ANGIOPATHY WITHOUT GANGRENE [id number] on March 23, 2023 1:24:21 PM [facility] Z89.612 ICD10 ACQUIRED ABSENCE OF LEFT LEG ABOVE KNEE [id number] on March 23, 2023 1:24:21 PM [facility] F17.200 ICD10 NICOTINE DEPENDE NCE, UNSPECIFIED, UNCOMPLICATED [id number] on March 23, 2023 1:24:21 PM [facility] I25.10 ICD10 ATHEROSCLEROTIC HEART DISEASE OF [place] CORONARY ARTERY WITHOUT ANGINA PECTORIS [id number] on March 23, 2023 1:24:21 PM [facility] 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.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 [id number] on March 23, 2023 1:24:21 PM [facility] J44.9 ICD10 CHRONIC OBSTRUCT ADAM PULMONARY DISEASE, UNSPECIFIED [id number] on March 23, 2023 1:24:21 PM [facility] Z91.199 ICD10 PATIENT'S NONCOM PLIANCE WITH OTHER MEDICAL TREATMENT AND REGIMEN DUE TO UNSPECIFIED REASON [id number] on March 23, 2023 1:24:21 PM [place] I25.5 ICD10 ISCHEMIC CARDIOMYOPATHY [id number] on March 23, 2023 1:24:21 PM [facility] Z79.82 ICD10 RESIDENTIAL (CURRENT) USE OF A SPIRIN [id number] on March 23, 2023 1:24:21 PM [facility] Z79.899 ICD10 OTHER RESIDENTIAL (CURRENT) DR DREW THERAPY [id number] on March 23, 2023 1:24:21 PM [facility] Z79.02 ICD10 RESIDENTIAL (CURRE NT) USE OF ANTITHROMBOTICS/ANTIPLATELETS [id number] on March 23, 2023 1:24:21 PM [place] E78.00 ICD10 PURE HYPERCHOLESTEROLEMIA, U NSPECIFIED [id number] on March 23, 2023 1:24:21 PM [place] Z95.5 ICD10 PRESENCE OF NEETA NARY ANGIOPLASTY IMPLANT AND GRAFT [id number] on March 23, 2023 1:24:21 PM [place] G25.81 ICD10 RESTLESS LEGS SYNDROME [id number] on March 23, 2023 1:24:21 PM [place] Z79.4 ICD10 RESIDENTIAL (CURRENT) USE OF I NSULIN [id number] on March 23, 2023 1:24:21 PM [place] CARE TEAM Care Bolt Maker Role KEISHA ANDINO Primary Attending KEISHA ANDINO Referring KEISHA ANDINO Admitting DAVID POSADA Surgeon PCP DECLINED Primary Care HOSPITAL DISCHARGE INSTRUCTION DISCHARGE INSTRUCTION Encounter [id number] Admit Date March 20, 2023 1: 57:00 PM [place] Discharge Date March 21, 2023 5: 00:00 PM UTC HISTORY AND PHYSICAL NOTE HISTORY AND PHYSICAL NOTE Note Title Nurse Intake Note Date Of Service March 20, 2023 5: 50:40 PM [place] Created By [id number] on March 20, 2023 5:50:40 PM UTC Signed By [email or web address] on March 20, 2023 5:53:58 PM UT [...] Service March 20, 2023 3: 51:20 PM [facility] Created By [id number] on March 20, 2023 3:51:20 PM UT Signed By [id number] on March 20, 2023 4:01:12 PM [facility] Chief Complaint Shortness of air History of Present Illness 57-year-old gentleman with poorly-controlled insulin-dependent diabetes mellitus, related peripheral neuropathy and peripheral vascular disease status post L AKA, tobacco abuse, coronary artery disease, HFrEF (32% 02/[address] 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), 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 Acute non ST segment elevation ME Differential includes atypical infection, STEMI, pulmonary embolism. [...] 2023 7: 44:01 PM UTC Created By [email or web address] on March 21, 2023 7:44:01 PM UTC Signed By [id number] on March 21, 2023 7:47:11 PM UTC Admit Date Admit Date: Discharge Date Discharge Date: Patient Care Team Admitting Provider: THU RED Attending Provider:THU RED Consulting Provider: Hospital Course 57-year-old gentleman with poorly-controlled insulin-dependent diabetes mellitus, related peripheral neuropathy and peripheral vascular disease status post L AKA, tobacco abuse, coronary artery disease, HFrEF (32% 02/[address] [facility]), 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 Acute non ST segment elevation ME Differential includes atypical infection, STEMI, pulmonary embolism. [...] CHF exacerbation and non ST segment elevation ME. the plan was to treat him medically [...] Intake and Output previous current encounter day cumulative Intake 4916 968 4941 Output 700 1000 1700 Balance 620 (-640) [...] palpable. Left AKA of course. Lab Results 0551 Chemistry SODIUM 139 K 4.8 CHLORIDE 105 CO2 26 A GAP 8.0 GLUCOSE 135 (H) BUN 65 (H) CREA 3.3 (H) BUN/CREA 19.7 EGFR 21 (L) PROTEIN 5.4 (L) ALBUMIN 2.3 (L) CALCIUM 8.3 (L) ZENAIDA COR 9.7 BILI TOT 0.5 AST/SGOT 26 ALT/SGPT 18 ALK PHOS 139 MG 2.0 0555 Hematology WBC 8.4 RBC 3.33 (L) HGB 9.6 (L) HCT 28.8 (L) MCV 86.5 MCH 28.8 MCHC 33.3 PLT S 194 RDW 13.5 MPV 11.5 (H) GRAN% 76.3 (H) LYMPH% 15.9 MONO% 7.5 EOS% 0.1 BASO% 0.1 IG% 0.1 GRAN# 6.39 LYMPH# 1.33 MONO# 0.63 EOS# 0.01 BASO# 0.01 IG# 0.01 MANDIFF? No 2310 Point Of Care GLUMETER 250 (H) 2114 Point Of Care GLUMETER 393 (H) 2011 Point Of Care GLUMETER 418 (H) 1608 Point Of Care GLUMETER 351 (H) Procedures and Surgeries None Condition at Discharge Good Discharge Medications <style size='11'>amLODIPine Besylate Oral Tablet 10 MG</style><style size='9' forecolor='#254580'>10 MG BY MOUTH ONCE DAILY </style> <style size='11'>ASPIR-LOW</style><style size='9' forecolor='#966921'>81 MG BY MOUTH ONCE DAILY </style> <style size='11'>atorvastatin calcium (LIPITOR)</style><style size='9' forecolor='#204527'>40 MG BY MOUTH ONCE DAILY </style> <style size='11'>Carvedilol Tablet 6.25 MG</style><style size='9' forecolor='#279328'>6.25 MG BY MOUTH TWICE A DAY </style> <style size='11'>Clopidogrel Bisulfate Tablet 75 MG</style><style size='9' forecolor='#819989'>75 MG BY MOUTH ONCE DAILY </style> <style size='11'>Entecavir Oral Tablet 0.5 MG</style><style size='9' forecolor='#857622'>0.5 GM BY MOUTH EVERY 72 HOURS </style> <style size='11'>Furosemide Tablet 20 MG</style><style size='9' forecolor='#141342'>20 MG BY MOUTH ONCE DAILY (ePrescribed by THU RED on 1111)</style> <style size='11'>Gabapentin Oral Tablet 600 MG</style><style size='9' forecolor='#292168'>600 MG BY MOUTH THREE TIMES A DAY </style> <style size='11'>isosorbide mononitrate SR 24HR</style><style size='9' forecolor='#782796'>60 MG BY MOUTH ONCE DAILY (ePrescribed by THU RED on 1111)</style> <style size='11'>Levemir Subcutaneous Solution 100 UNIT/ML</style><style size='9' forecolor='#065107'>12 UNT SUBCUTANEOUS AT BEDTIME </style> <style size='11'>Nitroglycerin Tablet 0.4 MG</style><style size='9' forecolor='#786810'>0.4 MG SUBLINGUAL EVERY FIVE MINUTES NEEDED for CHEST PAIN </style> <style size='11'>NovoLOG FlexPen Solution Pen-injector 100 UNIT/ML</style><style size='9' forecolor='#755278'>5 UNT SUBCUTANEOUS THREE TIMES DAILY WITH MEALS </style> Discharge Instructions Basic metabolic panel on Wednesday. Follow-up PCP. Diabetic 2 g sodium restricted diet. Daily weights. FSBS q.a.c. and HS. Time spent with Patient 35 minutes Electronically signed by THU RED on 5547 Note Title Nurse Discharge Note Date Of Service March 21, 2023 4: 36:46 PM UTC Created By [id number] on March 21, 2023 4:36:46 PM UTC Signed By [id number] on March 21, 2023 4:37:13 PM UTC Cognitive Status Alert, Oriented x4 Functional Status Difficulty performing ADL's Discharge Diagnosis Neuropathy Diabetes mellitus Nonalcoholic steatohepatitis Myocardial infarction Hyperlipidemia Hypertensive disorder Coronary arteriosclerosis Chronic obstructive lung disease Congestive heart failure Electronically signed by AMISH Mitchell RN on 1137 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 Role on Team Status Start Date End Date Update d By ALBINO HERNANDEZ MD Surgeon normal March 20, 2023 1:57:00 PM UTC March 21, 2023 5:00:00 PM UTC [id number] on March 23, 2023 1:24:41 PM UTC THU Reynoso MD PHEsha Referring normal March 20, 2023 1:58:15 PM UTC March 21, 2023 5:00:00 PM UTC [id number] on March 23, 2023 1:24:41 PM UTC THU Reynoso MD PHY Attending normal March 20, 2023 1:58:15 PM UTC March 21, 2023 5:00:00 PM UTC [id number] on March 23, 2023 1:24:41 PM UTC THU Reynoso MD PHY Admitting normal March 20, 2023 1:58:15 PM UTC March 21, 2023 5:00:00 PM UTC [id number] on March 23, 2023 1:24:41 PM UTC ALBINO HERNANDEZ MD Referring normal March 20, 2023 1:41:30 PM UTC March 20, 2023 1:57:56 PM UTC [id number] on March 23, 2023 1:24:41 PM UTC ALBINO HERNANDEZ MD Attending normal March 20, 2023 1:41:30 PM UTC March 20, 2023 1:57:56 PM UTC [id number] on March 23, 2023 1:24:41 PM UTC ALBINO HERNANDEZ MD Admitting normal March 20, 2023 1:41:30 PM UTC March 20, 2023 1:57:56 PM UTC [id number] on March 23, 2023 1:24:41 PM UTC DECLINED PCP PCP normal March 20, 2023 10:38:30 AM UTC March 20, 2023 1:57:56 PM UTC [id number] on March 23, 2023 1:24:41 PM UTC
--- NOTE | 2023-04-06 11:11 | CA_ITS ---
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 2D Dimensions Left Atrium 4.35 cm M: 3.0 - 4.0 LA Volume 54.80 mL LVOT 2.06 cm (M/F) 1.5-2.5 LA Volume Index 25.25 mL/m2 (M/F) 16-34 EF AP4 38.30 % GL Strain -14.5 % M-Mode Dimensions RVDd 3.15 cm (0.9-2.6) LVDd 6.10 cm (3.5-5.7) Ao Diam 3.09 cm (2.0-3.7) LVDs 4.66 cm (3.5-5.7) IVSd 0.95 cm (0.6-1.1) PWd 0.80 cm (0.6-1.1) EF (Teich) 46.30% FS 23.60% EDV (Teich) 186.90 mL TAPSE 1.67 (<1.7) ESV (Teich) 100.30 mL LV Diastology E Decel Time 381 (160-240 msec) E/A Ratio 2.0 MED E' 7.5 (>= 7 cm/sec) E'/MED E' Ratio 19.25 (<= 14) LAT E' 8.8 (>= 10 cm/sec) E/LAT E' Ratio 16.41 (<= 14) Aortic Valve LVOT Max 106.0 (70-110 cm/s) MATEO Index 0.60 cm2/m2 LVOT VTI 22.23 cm AoV Peak Yinka. 272.0 (50-130 cm/s) AO Mean GR. 14.50 (<5 mmHg) AO VTI 56.8 (18-25 cm) MATEO (VTI) 1.30 (2.5-4.5 cm2) Mitral Valve MV E Max Yinka. 144.0 (40-130 cm/s) MV A Velocity 71.0 (40-130 cm/s) E/A Ratio 2.02 MV Decel. Time 381 (160-240 ms) Left Ventricle The left ventricle is normal size. Left ventricular systolic function is moderate to severely decreased. There is increased LV wall thickness. There is moderate to severe global hypokinesis present. The mid to distal septal and inferoseptal LV taylor are nearly akinetic. Diastolic function is indeterminate. LVEF is 30%. Right Ventricle The right ventricle is mildly dilated. The right ventricular systolic function is normal. Atria Left atrium is mildly dilated. Right atrium is mildly dilated. There is no Doppler evidence of interatrial shunt. Aortic Valve The aortic valve is moderately thickened. Moderate aortic stenosis. MATEO by continuity equation is 1.3 cm.. Peak velocity 2.7 m/s. Mean AV gradient 15 mmHg. Max AV gradient 30 mmHg. DI=0.39. Mild aortic regurgitation. Mitral Valve The mitral valve leaflets are mildly thickened. No evidence of mitral valve stenosis. Moderate mitral regurgitation. Tricuspid Valve The tricuspid valve leaflets are thin and pliable. Mild tricuspid regurgitation. Pulmonic Valve The pulmonary valve is normal in structure. Trace pulmonic regurgitation. Great Vessels The aortic root is normal in size. There is borderline dilated ascending aorta, measuring 3.7 cm in diameter. IVC is normal in size and collapses >50% with inspiration. Pericardium There is no pericardial effusion. Other Information Study Quality: Fair Conclusion Moderate to severe reduction in LV systolic function (LVEF 30%). Near akinesis of the mid to distal septal and inferoseptal LV taylor Mildly dilated RV with normal RV function. Moderate ( MATEO by continuity equation is 1.3 cm2 (peak velocity 2.7 m/s. Mean AV gradient 15 mmHg. Max AV gradient 30 mmHg. DI=0.39) Mild AI Moderate MR. Mild TR. Borderline dilated ascending aorta, measuring 3.7 cm in diameter. Electronically signed by : Yazmin Palm MD 04/08/2023 15:57:30
--- NOTE | 2023-04-06 11:42 | HMH.PHAINT1 ---
Pharmacy Intervention Comments: Home med list verified with patient at bedside and with external pharmacy list.
[2023-04-06 12:00] VITALS: BP 125/70; PULSE 60; RESP 17; O2SAT 100
[2023-04-06 12:25] LABS: PTT Heparin (inpatient only) 42.3 Seconds (23.6-34.0)
[2023-04-06] MEDS: HEPARIN SODIUM 5,000 UNIT/ML VIAL 3000 UNIT IV (13:30)
--- NOTE | 2023-04-06 13:32 | PC.NURSE ---
heparin increased from 20 ml/hr to 24 ml/hr verified with Geraldine KILGORE.
--- NOTE | 2023-04-06 14:15 | P.CONCA_ITS ---
History of Present Illness History of Present Illness Consult date: 04/06/23 Requesting physician: Nidia Desai Consult reason: shortness of breath Chief complaint: SOB History of present illness: This is a 57-year-old white gentleman who was admitted to the hospital for non- STEMI. He has a past medical history of CAD, hypertension, hyperlipidemia, COPD, diabetes and CHF. The patient was previously admitted to [facility] last week for CHF exacerbation. The patient reports that he was diuresed with IV Lasix and then discharged home. He states he was home for less than 12 hours before he started to have extreme shortness of breath again. He states that his shortness of breath was worse than prior to him being admitted to the hospital. He states that he felt like he was smothering. He denied any chest pain or pressure. He states that the shortness of breath was severe. It was worse with exertion and nothing was really helping to improve his chest pain. He went back to the emergency department at [facility] and was found to have an elevated troponin consistent with a non-STEMI. The patient was then transferred here to [facility] for further evaluation and keven atment of the non-STEMI. The patient still denies having any chest pain or pressure. He does report still feeling short of breath but it has improved since he came into the hospital. The patient was also found to have a creatinine of 2.9 and he is also anemic. The patient is a very poor historian and is unable to give me much information. He states he thinks he has some underlying kidney disease but he is not sure. He denies ever being told that he has been anemic. We will try to request records from his primary care provider's office. The patient denies any lower extremity edema. He denies any fever, chills, nausea, vomiting, diarrhea, PND orthopnea. [facility] Disclaimer: The information contained in this section may have been updated after the patient was seen, as this information can be updated by other users. 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 (Updated 04/06/23 @ 14:21 by Enedelia Ron APRN) Above knee amputation of left lower extremity Asthma Atypical angina CAD in [place] artery Congestive heart failure COPD (chronic obstructive pulmonary disease) Diabetes mellitus Diabetes mellitus, type 2 History of left heart catheterization (LHC) Hyperlipidemia Hypertension Surgical History (Updated 04/06/23 @ 05:28 by MARGE Winchester) History of cholecystectomy Family History (Updated 04/06/23 @ 05:28 by MARGE Winchester) Other Family history of cancer Social History (Updated 04/06/23 @ 05:28 by MARGE Winchester) Smoking Status: Former smoker tobacco type: cigarettes packs per day: 2 alcohol intake: never current occupational status: employed and disabled Travel in the last 8 weeks: None housing: house current occupational exposures/hazards: No Review of Systems Review of Systems Review of systems:: pertinent systems reviewed and negative unless documented below Constitutional Constitutional: Reports system reviewed and no additional complaints, except as documented, Reports fatigue and Reports lethargy Eyes Eyes: Reports system reviewed and no additional complaints, except as documented ENT Ears, Nose, Mouth, and Throat: Reports system reviewed and no additional complaints, except as documented *Cardiovascular Cardiovascular: Reports system reviewed and no additional complaints, except as documented, Denies chest pain, Reports dyspnea and Reports dyspnea on exertion *Respiratory Respiratory: Reports system reviewed and no additional complaints, except as documented, Denies cough, Reports dyspnea and Reports dyspnea on exertion *Gastrointestinal Gastrointestinal: Reports system reviewed and no additional complaints, except as documented *Genitourinary Genitourinary: Reports system reviewed and no additional complaints, except as documented *Musculoskeletal Musculoskeletal: Reports system reviewed and no additional complaints, except as documented Integumentary/Breasts Skin/Breast: Reports system reviewed and no additional complaints, except as documented *Neurologic Neurologic: Reports system reviewed and no additional complaints, except as documented Psychiatric Psychiatric: Reports system reviewed and no additional complaints, except as documented Endocrine Endocrine: Reports system reviewed and no additional complaints, except as documented and Reports fatigue Hematologic/Lymphatic Hematologic/Lymphatic: Reports system reviewed and no additional complaints, except as documented Allergic/Immunologic Allergic/Immunologic: Reports system reviewed and no additional complaints, except as documented Exam Data for Last 24 hours Vital signs and Labs for Last 24 Hours: Temp Pulse Resp BP Pulse Ox O2 Del Method O2 Flow Rate 97.7 F 60 17 125/70 100 Nasal Cannula 2 04/06/23 08:00 04/06/23 12:00 04/06/23 12:00 04/06/23 12:00 04/06/23 12:00 04/06/23 14:12 04/06/23 14:12 Laboratory Results - last 24 hr 04/06/23 05:31: WBC 7.5, RBC 3.47 L, Hgb 10.3 L, Hct 31.0 L, MCV 89.6, MCH 29.7, MCHC 33.2, RDW 14.8, Plt Count 185, MPV 9.8, Neut % (Auto) 89.3 H, Lymph % (Auto) 9.2 L, [place] % (Auto) 1.3 L, Eos % (Auto) 0.1, Baso % (Auto) 0.1, Neut # (Auto) 6.7, Lymph # (Auto) 0.7, [place] # (Auto) 0.1, Eos # (Auto) 0.0, Baso # (Auto) 0.0, Total Counted 100, Neutrophils % (Manual) 88 H, Lymphocytes % (Manual) 10, Monocytes % (Manual) 2, Platelet Estimate Normal, RBC Morphology Normal, PT 11.8, INR 1.10, APTT 47.0 H, Sodium 133 L, Potassium 4.8, Chloride 102, Carbon Dioxide 24, Anion Gap 11.8, BUN 68 H, Creatinine 2.90 H, Estimated Creat Clear 39, Estimated GFR 23 L, Est GFR ( Amer) 27 L, Glucose 292 H, Hemoglobin A1c 7.5 H, Lactate 1.3, Calcium 7.9 L, Troponin I 1.59 H, NT-Pro-B Natriuret Pep 27685 H, Triglycerides 65, Cholesterol 184, LDL Cholesterol Direct 80.60 L, VLDL Cholesterol 13, HDL Cholesterol 77 H, Cholesterol/HDL Ratio 2.4, Procalcitonin 0.169 04/06/23 06:00: POC Glucose 310 H* 04/06/23 08:33: Troponin I 1.59 H 04/06/23 11:20: APTT 42.3 H I & O for Last 24 hours: Intake & Output 04/03/23 04/04/23 04/05/23 04/06/23 23:59 23:59 23:59 23:59 Output Total 1575 / 1575 Balance -1575 / -1575 Weight 208 lb 15.971 oz Constitutional Constitutional: no acute distress and average body habitus *Routine HEENT Exam Head: Present normocephalic and atraumatic ENT: Present mucous membranes moist *Routine Neck Exam Neck: Present supple, full ROM and normal carotid upstroke; Absent JVD, carotid bruit or lymphadenopathy *Routine Respiratory Exam Respiratory: Present CTA bilaterally, normal respiratory effort, able to speak in complete sentences and symmetric chest movement *Routine Cardiovascular Exam Cardiovascular: Present RRR, Normal S1 and Normal S2; Absent murmur or gallop *Routine Abdominal Exam Abdominal: Present soft and normoactive bowel sounds; Absent tenderness, distended or organomegaly *Routine Extremities Exam Extremities: Present full ROM, pulses intact, normal capillary refill and amputation (Left soydc-rvh-htlj amputee); Absent cyanosis, clubbing or edema *Routine Skin Exam Skin: Present intact and warm; Absent erythema *Routine Neurological Exam Neurological: Present alert, oriented X3 and CN II-XII intact; Absent sensory deficit or motor deficit Routine Psychiatric Exam Psychiatric: Present normal affect Meds Home Medications and Allergies Home Medications Medication Instructions Recorded Confirmed Type atorvastatin 80 mg tablet 80 mg PO DAILY 09/06/17 04/06/23 History gabapentin 600 mg tablet 600 mg PO TID 09/06/17 04/06/23 History albuterol sulfate 90 mcg/actuation 1 puff inhalation DAILYP PRN 04/06/23 04/06/23 History aerosol inhaler Shortness Of Breath Or Wheezing aspirin 81 mg chewable tablet 81 mg PO DAILY 04/06/23 04/06/23 History carvedilol 12.5 mg tablet 12.5 mg PO BID 04/06/23 04/06/23 History dapagliflozin propanediol 10 mg 10 mg PO DAILY 04/06/23 04/06/23 History tablet (Farxiga) entecavir 0.5 mg tablet 0.5 mg PO DIRECTED 04/06/23 04/06/23 History furosemide 40 mg tablet 40 mg PO DAILY 04/06/23 04/06/23 History hydralazine 50 mg tablet 50 mg PO TID 04/06/23 04/06/23 History hydrochlorothiazide 25 mg tablet 25 mg PO DAILY 04/06/23 04/06/23 History insulin aspart U-100 100 unit/mL 5 unit SQ TIDWMEAL 04/06/23 04/06/23 History (3 mL) subcutaneous pen (Novolog FlexPen U-100 Insulin aspart) insulin detemir U-100 100 unit/mL 13 unit SQ HS 04/06/23 04/06/23 History (3 mL) subcutaneous pen (Levemir FlexPen) isosorbide mononitrate 60 mg 60 mg PO DAILY 04/06/23 04/06/23 History tablet,extended release 24 hr loperamide 2 mg capsule 2 mg PO DAILYP PRN Diarrhea 04/06/23 04/06/23 History nitroglycerin 0.4 mg sublingual 0.4 mg sublingual Q5M PRN Chest 04/06/23 04/06/23 History tablet Pain umeclidinium 62.5 mcg/actuation 1 inh inhalation DAILY 04/06/23 04/06/23 History blister powder for inhalation (Incruse Ellipta) New Prescriptions to Start Prescriptions: Allergies Allergy/AdvReac Type Severity Reaction Status Date / Time No Known Allergies Allergy Unverified 03/16/17 14:11 Assessment and Plan *Assessment and plan (1) Non-STEMI (non-ST elevated myocardial infarction): Status: Acute Category: Medical Code(s): I21.4 - Non-ST elevation (NSTEMI) myocardial infarction (2) Atypical angina: Status: Acute Category: Medical Code(s): I20.89 - Other forms of angina pectoris (3) CAD in [place] artery: Status: Acute Category: Medical Code(s): I25.10 - Atherosclerotic heart disease of [place] coronary artery without angina pectoris (4) COPD (chronic obstructive pulmonary disease): Status: Acute Qualifiers: COPD type: chronic bronchitis Chronic bronchitis type: unspecified Qualified Code(s): J42 - Unspecified chronic bronchitis Category: Medical Code(s): J44.9 - Chronic obstructive pulmonary disease, unspecified (5) Diabetes mellitus: Status: Acute Qualifiers: Diabetes mellitus type: type 2 Diabetes mellitus director long term care insulin use: with director long term care use Diabetes mellitus complication status: without complication Qualified Code(s): E11.9 - Type 2 diabetes mellitus without complications; Z79.4 - jail (current) use of insulin Category: Medical Code(s): E11.9 - Type 2 diabetes mellitus without complications (6) Hyperlipidemia: Status: Acute Qualifiers: Hyperlipidemia type: mixed hyperlipidemia Qualified Code(s): E78.2 - Mixed hyperlipidemia Category: Medical Code(s): E78.5 - Hyperlipidemia, unspecified (7) Congestive heart failure: Status: Acute Qualifiers: Heart failure type: unspecified Heart failure chronicity: acute on chronic Qualified Code(s): I50.9 - Heart failure, unspecified Category: Medical Code(s): I50.9 - Heart failure, unspecified Plan Plan: 1. This is a 57-year-old gentleman who was admitted to the hospital for non- STEMI. The patient does have an elevated troponin at 1.59. The patient does have Nitropaste in place as well and is on a heparin drip. He is currently on a statin and aspirin as well for his non-STEMI. The patient will need left cardiac catheterization at some time during this hospitalization to evaluate his coronary disease. But given his renal function we will have to hold off on his left cardiac catheterization at this time to avoid contrast nephropathy as long as his symptoms remain stable. 2. The patient's creatinine is 2.9. At this point we do not know with the patient's baseline renal function is. He states that he has been told he has some kidney disease but he is not sure how bad his kidney disease is and is unable to tell us any further information on this. Will try to get records from his primary care provider's office and labs to see where his baseline creatinine is. Once the patient has had an improvement in his renal function then we can consider left cardiac catheterization at that time for further evaluation of his non-STEMI and CAD. 3. Continue with heparin drip for the non-STEMI as well as nitro. 4. Coronary artery disease is present and will need left cardiac catheterization once he has had improvement in his renal function. 5. His blood pressure is acceptable. Will continue to follow. Continue carvedilol, hydralazine and isosorbide. 6. His LDL goal is less than 55. He is on a statin. 7. Will obtain an echocardiogram to evaluate his LV function due to his non- STEMI and shortness of breath. 8. The patient does have an elevated BNP over 42,000 consistent with CHF exacerbation. Will give him Lasix 40 mg IV twice daily for diuresis. We will also restart his Farxiga for CHF. 9. The patient is diabetic. He will need aggressive control of his diabetes. Will defer management this to the hospitalist. 10. We have requested records from his primary care provider's office Dr. Erik Hurley. 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 Hernandez. Will also try to obtain any recent cardiology testing. 11. Further recommendations will be made pending the patient's response to treatment and the results of his echocardiogram today. Will review records from his primary care provider once they are received to try to determine his baseline renal function to determine when we will proceed with left cardiac catheterization. Thank you for the opportunity to help participate in the care of this patient. All recommendations and orders are per Dr. Palm.
--- NOTE | 2023-04-06 14:53 | PC.NURSE ---
Pt. aox 4, up with assist times one, on 02-2l nc sats in the 90's, on heparin gtt, no pain at this time.
[2023-04-06] MEDS: DAPAGLIFLOZIN PROPANEDIOL 10 MG TABLET PO (15:51)
[2023-04-06 16:00] VITALS: BP 132/66; PULSE 56; PULSE 80; RESP 18; TEMP 36.6; O2SAT 98
[2023-04-06 16:00] LABS: POC Glucose,Bedside 403 (70-110)
[2023-04-06 19:40] LABS: PTT Heparin (inpatient only) 65.9 Seconds (23.6-34.0)
[2023-04-06 20:00] VITALS: BP 145/78; PULSE 80; PULSE 91; RESP 20; TEMP 36.8; O2SAT 99
--- NOTE | 2023-04-06 20:12 | XR_ITS ---
PROCEDURE INFORMATION: Exam: XR Chest Exam date and time: 04/06/2023 4:55 AM Age: 57 years old Clinical indication: Other: Hypoxia TECHNIQUE: Imaging protocol: Radiologic exam of the chest. Views: 1 view. COMPARISON: No relevant prior studies available. FINDINGS: Tubes, catheters and devices: Monitor leads project over the chest. Lungs: Bilateral atelectasis or scarring. Pleural spaces: No significant costophrenic angle blunting. No pneumothorax. Heart/Mediastinum: Heart size appears prominent but is likely exaggerated by the portable AP technique. Bones/joints: No acute osseous abnormality. IMPRESSION: Bilateral atelectasis or scarring.
[2023-04-06] MEDS: HYDRALAZINE HCL 25MG TABLET 50 MG PO (20:28)
[2023-04-06] MEDS: ATORVASTATIN 40MG TABLET 40 MG PO (20:28)
[2023-04-06] MEDS: INSULIN GLARGINE 100 UNITS/ML 3ML FLEXPEN 12 UNIT SQ (20:29)
--- NOTE | 2023-04-06 22:45 | PC.NURSE ---
spoke with Raf[facility] pharmacist re Ptt 65.9. Pharmacist Rafiq said Ptt in range and he would order the next Ptt.
[2023-04-07] VITALS (9 sets, daily range): BP systolic 127–140; BP diastolic 69–84; PULSE 64–86; RESP 18–20; TEMP 36.6–37.1; O2SAT 96–100; BMI 27.2
[2023-04-07] MEDS: HEPARIN SODIUM,PORCINE/D5W 500 ML 24 UNIT IV ×2 (01:27→23:55)
[2023-04-07 02:32] LABS: PTT Heparin (inpatient only) 24.4 Seconds (23.6-34.0)
[2023-04-07] MEDS: HEPARIN SODIUM 5,000 UNIT/ML VIAL 4000 UNIT IV (03:11)
--- NOTE | 2023-04-07 03:29 | PC.NURSE ---
at the same time PTT was drawn at around 0130 a new iv had to be started as iv was found to be infiltrated. [facility] pharmacist called and was informed. Ptt for 0130 was 24.4. Ordered Heparin Bolus 4,000 units and resume Heparin drip at current rate.
--- NOTE | 2023-04-07 03:34 | PC.NURSE ---
next Ptt due at 0900.
[2023-04-07 05:19] LABS: POC Glucose,Bedside 442 (70-110)
[2023-04-07 05:19] LABS: POC Glucose,Bedside 234 (70-110)
[2023-04-07] MEDS: humaLOG 100 UNITS/ML 3ML VIAL (SSI) SQ ×4 (05:29→21:18)
[2023-04-07 07:59] LABS: Basophils % 0.2 % (0.1-2.0); Eosinophils % 0.2 % (0.1-12.0); Hematocrit 27.1 % (42.0-52.0); Hemoglobin 9.2 g/dL (14.1-18.0); Lymphocytes # 1.7 K/mm3 (0.7-4.5); Lymphocytes % 28.7 % (10-50); Mean Corpuscular HGB Conc 33.8 g/dL (31.8-35.4); Mean Corpuscular Hemoglobin 29.3 pg (27.0-31.2); Mean Corpuscular Volume 86.8 fl (80-94); Mean Platelet Volume 9.7 fl (7.4-10.4); Monocytes # 0.3 K/mm3 (0.1-1.0); Monocytes % 5.7 % (1.7-9.3); Neutrophils # 3.9 K/mm3 (1.8-7.8); Neutrophils % 65.2 % (37.0-80.0); Platelet Count 162 K/mm3 (142-424); Red Blood Count 3.12 M/mm3 (4.60-6.20); Red Cell Distribution Width 14.7 % (11.5-17.5)
[2023-04-07 08:02] LABS: Calcium 7.9 mg/dl (8.4-10.2); Carbon Dioxide 26 mmol/L (22.0-30.0); Chloride 101 mmol/L (98-107); Creatinine Clearance Estimated 37 mL/min (50-200); Estimated Glomerular Filt Rate 23 ml/min (>60); GFR (African American) 27 ML/MIN (>60); Glucose 188 mg/dl (74-100); Sodium 132 mmol/L (136-145)
[2023-04-07 08:12] LABS: Blood Urea Nitrogen 86 mg/dl (9-20)
[2023-04-07] MEDS: DAPAGLIFLOZIN PROPANEDIOL 10 MG TABLET PO (09:31)
[2023-04-07] MEDS: GABAPENTIN 300MG CAPSULE 300 MG PO ×3 (09:31→21:02)
[2023-04-07] MEDS: CLOPIDOGREL 75MG TAB 75 MG PO (09:32)
[2023-04-07] MEDS: ISOSORBIDE MONO 60MG TAB.ER.24H 60 MG PO (09:32)
[2023-04-07] MEDS: CARVEDILOL 6.25MG TABLET 6.25 MG PO ×2 (09:32→21:02)
[2023-04-07] MEDS: HYDRALAZINE HCL 25MG TABLET 50 MG PO ×3 (09:32→21:02)
[2023-04-07] MEDS: ASPIRIN 81MG CHEWABLE TABLET 81 MG PO (09:32)
[2023-04-07] MEDS: CALCIUM POLYCARBOPHIL 625MG TAB 1250 MG PO (09:32)
[2023-04-07] MEDS: LOPERAMIDE 2MG CAPSULE 2 MG PO (09:33)
--- NOTE | 2023-04-07 09:55 | PC.NURSE ---
aptt 62 this morning. per pharm, leave heparin gtt at 1200units/hr at this time.
--- NOTE | 2023-04-07 11:14 | PC.NURSE ---
pt ra o2 sat 98%. pt called out stating o2 is not working and i feel short of breath . md aware, pt placed on 1l nc for comfort.
[2023-04-07 11:56] LABS: POC Glucose,Bedside 243 (70-110)
[2023-04-07 12:26] LABS: Iron 62 ug/dL (49-181)
[2023-04-07 12:36] LABS: Total Iron Binding Capacity 234 ug/dL (261-462)
[2023-04-07 13:02] LABS: Ferritin 102 ng/ml (17.9-464)
--- NOTE | 2023-04-07 13:06 | P.PN_ITS ---
Subjective Subjective Date: 04/07/23 Time: 10:00 Principal diagnosis: nonstemi, CKD Interval history: This is a 57-year-old gentleman who is noted to the hospital for a non-STEMI. The patient's left cardiac catheterization has been postponed due to his elevated creatinine. His baseline creatinine is around 2.2. The patient is anemic. His hemoglobin today is 9.2. His hemoglobin back in September 2022 was greater than 13. This does appear to be a new onset anemia which needs to be further investigated prior to proceeding with left cardiac catheterization per Dr. Schofield. This morning he is still complaining of shortness of breath. He is short of breath at rest. It is worse with exertion. It improves with rest but does not completely resolve. He denies a cough. He denies chest pain or pressure. He denies any lower extremity edema. He denies any fever, chills, nausea, vomiting, diarrhea. Exam Data for Last 24 hours Vital signs and Labs for Last 24 Hours: Temp Pulse Resp BP Pulse Ox O2 Del Method O2 Flow Rate 97.9 F 80 18 132/72 99 Nasal Cannula 2 04/07/23 11:10 04/07/23 12:00 04/07/23 11:10 04/07/23 11:10 04/07/23 11:10 04/07/23 11:10 04/07/23 11:10 Laboratory Results - last 24 hr 04/06/23 15:47: POC Glucose 403 H* 04/06/23 18:30: APTT 65.9 H* 04/06/23 20:22: POC Glucose 442 H* 04/07/23 01:30: APTT 24.4 04/07/23 05:10: POC Glucose 234 H 04/07/23 06:55: WBC 6.0, RBC 3.12 L, Hgb 9.2 L, Hct 27.1 L, MCV 86.8, MCH 29.3, MCHC 33.8, RDW 14.7, Plt Count 162, MPV 9.7, Neut % (Auto) 65.2, Lymph % (Auto) 28.7, [place] % (Auto) 5.7, Eos % (Auto) 0.2, Baso % (Auto) 0.2, Neut # (Auto) 3.9, Lymph # (Auto) 1.7, [place] # (Auto) 0.3, Eos # (Auto) 0.0, Baso # (Auto) 0.0, Sodium 132 L, Potassium 4.0, Chloride 101, Carbon Dioxide 26, Anion Gap 9.0, BUN 86 H D, Creatinine 2.90 H, Estimated Creat Clear 37, Estimated GFR 23 L, Est GFR ( Amer) 27 L, Glucose 188 H, Calcium 7.9 L 04/07/23 09:10: APTT 62.0 H*, Iron 62, TIBC 234 L, Iron Saturation 26.24011 04/07/23 11:33: POC Glucose 243 H I & O for Last 24 hours: Intake & Output 04/04/23 04/05/23 04/06/23 04/07/23 23:59 23:59 23:59 23:59 Intake Total 1104 / 1813 1309 / 1309 Output Total 2275 / 2375 975 / 975 Balance -1171 / -562 334 / 334 Weight 208 lb 15.971 oz 201 lb 1.6 oz Constitutional Constitutional: no acute distress and average body habitus *Routine HEENT Exam Head: Present normocephalic and atraumatic ENT: Present mucous membranes moist *Routine Neck Exam Neck: Present supple, full ROM and normal carotid upstroke; Absent JVD, carotid bruit or lymphadenopathy *Routine Respiratory Exam Respiratory: Present CTA bilaterally, normal respiratory effort, able to speak in complete sentences and symmetric chest movement *Routine Cardiovascular Exam Cardiovascular: Present RRR, Normal S1 and Normal S2; Absent murmur or gallop *Routine Abdominal Exam Abdominal: Present soft and normoactive bowel sounds; Absent tenderness, distended or organomegaly *Routine Extremities Exam Extremities: Present full ROM, pulses intact, normal capillary refill and amputation (Left ynkwa-xgk-uptz amputee); Absent cyanosis, clubbing or edema *Routine Skin Exam Skin: Present intact and warm; Absent erythema *Routine Neurological Exam Neurological: Present alert, oriented X3 and CN II-XII intact; Absent sensory deficit or motor deficit Routine Psychiatric Exam Psychiatric: Present normal affect Progress Note: A&P Assessment and plan (1) Non-STEMI (non-ST elevated myocardial infarction): Status: Acute (2) Atypical angina: Status: Acute (3) Acute exacerbation of CHF (congestive heart failure): Status: Acute (4) COPD (chronic obstructive pulmonary disease): Status: Acute (5) Hypertension: Status: Acute (6) Diabetes mellitus: Status: Acute (7) CAD in [place] artery: Status: Acute (8) Hyperlipidemia: Status: Acute (9) Stenosis of carotid artery: Status: Acute (10) Peripheral arterial disease: Status: Acute (11) Status post above-knee amputation of left lower extremity: Status: Acute (12) HFrEF (heart failure with reduced ejection fraction): Status: Acute (13) Acute blood loss anemia: Status: Acute Assessment and Plan Assessment and Plan for All Diagnoses:: Plan: 1. This is a 57-year-old gentleman who was admitted to the hospital for non- STEMI. The patient does have an elevated troponin at 1.59. The patient is on a heparin drip as well as aspirin and a statin. The patient will need to have a left cardiac catheterization during this hospitalization to evaluate his coronary artery disease. But his left cardiac catheterization has been postponed due to his chronic kidney disease and new onset anemia. The patient will need further evaluation of his anemia before proceeding with left cardiac catheterization per Dr. Arce. 2. The patient has a history of chronic kidney disease. His baseline creatinine in September 2022 was around 2.2. His creatinine is 2.9 at this time which is likely stable. 3. The patient is anemic. His hemoglobin is down to 9.2 today. His hematocrit is 27.1. In September 2022 his hemoglobin was greater than 13. This does look like a new onset anemia due to acute blood loss anemia. The patient denies ever being told he was anemic in the past. Will obtain iron studies. Will also get a Hemoccult stool. Dr. Arce would like to repeat a CBC in the morning. If his hemoglobin is stable in the morning and his Hemoccult stool is negative then we will likely plan to proceed with left cardiac catheterization tomorrow. 4. Coronary artery disease is present. He did have previous stenting to his right coronary artery in either 2014 or 2015. As mentioned above he will need left cardiac catheterization during this admission. 5. His blood pressure is well-controlled. Continue hydralazine and isosorbide. 6. His LDL goal is less than 55. His LDL is 80. He is on a statin. 7. The patient does have a history of congestive heart failure. His preliminary echocardiogram shows an ejection fraction of 30%. His records from his previous rn clinical resource does not indicate that he had a cardiomyopathy or reduced ejection fraction, but the last time he saw cardiology was in [address] Hernandez's office. 8. Continue Farxiga, carvedilol for HFrEF. 9. We are currently holding Lasix in preparation for left cardiac ca theterization. 10. No NARESH, ARB or Entresto due to his renal function. 11. The patient does have severe LV dysfunction. Consider LifeVest prior to discharge home. He is at increased risk for sudden cardiac due to his severe LV dysfunction. 12. Patient is diabetic. He will need aggressive control of his diabetes. Will defer management of this to the hospitalist. 13. Further recommendations be made pending the patient's response to treatment. Thank you for the opportunity to participate in the care of this patient. All recommendations and orders are per Dr. Palm.
[2023-04-07 16:50] LABS: PTT Heparin (inpatient only) 53.5 Seconds (23.6-34.0)
[2023-04-07 17:47] LABS: POC Glucose,Bedside 356 (70-110)
--- NOTE | 2023-04-07 19:55 | EXP.ACUTE.PN ---
Subjective *Date: 04/07/23 *Time: 22:42 Interval history: Patient tolerating 2 L nasal cannula today, turned oxygen off and his sats remained between 88 and 92 but he felt short of breath. Resumed oxygen after rounds. Denies any black stools or hematochezia. No chest pain at this time. Making urine. Tolerating p.o. intake. Medical Exam Vital signs and Labs for Last 24 Hours: Vital Signs Temp Pulse Pulse Resp BP Pulse Ox O2 Del Method 04/07/23 18:18 Nasal Cannula 04/07/23 17:00 Nasal Cannula 04/07/23 16:00 64 04/07/23 15:25 98.5 F 72 18 133/84 100 Nasal Cannula 04/07/23 15:00 Nasal Cannula 04/07/23 13:00 Nasal Cannula 04/07/23 12:00 80 04/07/23 11:00 Nasal Cannula 04/07/23 11:10 97.9 F 69 18 132/72 99 Nasal Cannula 04/07/23 08:00 97 Room Air 04/07/23 09:00 Room Air 04/07/23 08:00 70 04/07/23 08:00 98.7 F 75 18 127/69 99 Nasal Cannula 04/07/23 06:27 Nasal Cannula 04/07/23 05:00 Nasal Cannula 04/07/23 04:00 98.2 F 72 20 128/74 96 Nasal Cannula 04/07/23 04:00 75 04/07/23 03:00 Nasal Cannula 04/07/23 02:50 86 04/07/23 00:00 79 04/07/23 01:00 Nasal Cannula 04/06/23 23:00 Nasal Cannula 04/06/23 21:00 Nasal Cannula 04/06/23 20:00 99 Nasal Cannula 04/07/23 00:00 98.0 F 73 18 128/74 100 Nasal Cannula 04/06/23 20:00 80 04/06/23 20:00 98.3 F 91 H 20 145/78 H 99 Nasal Cannula O2 Flow Rate 04/07/23 18:18 1 04/07/23 17:00 1 04/07/23 16:00 04/07/23 15:25 1 04/07/23 15:00 1 04/07/23 13:00 1 04/07/23 12:00 04/07/23 11:00 1 04/07/23 11:10 2 04/07/23 08:00 04/07/23 09:00 04/07/23 08:00 04/07/23 08:00 2 04/07/23 06:27 2 04/07/23 05:00 2 04/07/23 04:00 2 04/07/23 04:00 04/07/23 03:00 2 04/07/23 02:50 04/07/23 00:00 04/07/23 01:00 2 04/06/23 23:00 2 04/06/23 21:00 100 04/06/23 20:00 2 04/07/23 00:00 2 04/06/23 20:00 04/06/23 20:00 Intake and Output 04/07/23 04/07/23 04/07/23 07:59 15:59 23:59 Intake Total 709 / 1549 600 / 1549 240 / 1549 Output Total 600 / 975 375 / 975 Balance 109 / 574 225 / 574 240 / 574 Intake: Intake, Oral Amount 480 / 1320 600 / 1320 240 / 1320 Intake, Total IV Amount 229 / 229 Heparin Sodium,Porcine/D5w 500 229 / 229 ml @ 1,200 UNITS/HR 24 mls/hr IV .[id number] [facility] Rx#:[id number] Output: Output, Urine Amount 600 / 975 375 / 975 Other: Number of Unmeasured Voids 2 Number of Bowel Movements 2 Weight 91.217 kg Patient Weight 04/07/23 23:59 Weight 91.217 kg Laboratory Results - last 24 hr 04/06/23 20:22: POC Glucose 442 H* 04/07/23 01:30: APTT 24.4 04/07/23 05:10: POC Glucose 234 H 04/07/23 06:55: WBC 6.0, RBC 3.12 L, Hgb 9.2 L, Hct 27.1 L, MCV 86.8, MCH 29.3, MCHC 33.8, RDW 14.7, Plt Count 162, MPV 9.7, Neut % (Auto) 65.2, Lymph % (Auto) 28.7, [place] % (Auto) 5.7, Eos % (Auto) 0.2, Baso % (Auto) 0.2, Neut # (Auto) 3.9, Lymph # (Auto) 1.7, [place] # (Auto) 0.3, Eos # (Auto) 0.0, Baso # (Auto) 0.0, Sodium 132 L, Potassium 4.0, Chloride 101, Carbon Dioxide 26, Anion Gap 9.0, BUN 86 H D, Creatinine 2.90 H, Estimated Creat Clear 37, Estimated GFR 23 L, Est GFR ( Amer) 27 L, Glucose 188 H, Calcium 7.9 L 04/07/23 09:10: APTT 62.0 H*, Iron 62, TIBC 234 L, Iron Saturation 26.75689, Ferritin 102 04/07/23 11:33: POC Glucose 243 H 04/07/23 16:07: APTT 53.5 H* 04/07/23 16:24: POC Glucose 356 H* I & O for Labs for Last 24 Hours: Intake & Output 04/04/23 04/05/23 04/06/23 04/07/23 23:59 23:59 23:59 23:59 Intake Total 1104 / 1813 1549 / 1549 Output Total 2275 / 2375 975 / 975 Balance -1171 / -562 574 / 574 Weight 94.8 kg 91.217 kg Constitutional: Present no acute distress and chronically ill appearing Head: Present atraumatic and normocephalic ENT: Present normal exam Neck: Present normal inspection Respiratory: Present prolonged expiratory phase and diminished air movement; Absent rhonchi, wheezes or crackles Cardiac: Present Reg Rate and Rhythm GI: Present soft and normal bowel sounds; Absent distention or tenderness Extremities: Present normal inspection and full ROM Comment:: Left AKA Skin: Present intact; Absent erythema Neuro: Present Grossly Intact and moves all extremities Assessment and Plan *Assessment and plan (1) Acute exacerbation of CHF (congestive heart failure): Status: Acute Qualifiers: Heart failure type: unspecified Qualified Code(s): I50.9 - Heart failure, unspecified Category: Medical Code(s): I50.9 - Heart failure, unspecified (2) Non-STEMI (non-ST elevated myocardial infarction): Status: Acute Category: Medical Code(s): I21.4 - Non-ST elevation (NSTEMI) myocardial infarction (3) COPD (chronic obstructive pulmonary disease): Status: Acute Qualifiers: COPD type: chronic bronchitis Chronic bronchitis type: unspecified Qualified Code(s): J42 - Unspecified chronic bronchitis Category: Medical Code(s): J44.9 - Chronic obstructive pulmonary disease, unspecified (4) Hypertension: Status: Acute Qualifiers: Hypertension type: primary hypertension Qualified Code(s): I10 - Essential (primary) hypertension Category: Medical Code(s): I10 - Essential (primary) hypertension (5) Diabetes mellitus: Status: Acute Qualifiers: Diabetes mellitus type: type 2 Diabetes mellitus parts counterman insulin use: with parts counterman use Diabetes mellitus complication status: without complication Qualified Code(s): E11.9 - Type 2 diabetes mellitus without complications; Z79.4 - retirement (current) use of insulin Category: Medical Code(s): E11.9 - Type 2 diabetes mellitus without complications (6) HFrEF (heart failure with reduced ejection fraction): Status: Acute Category: Medical Code(s): I50.20 - Unspecified systolic (congestive) heart failure (7) Acute blood loss anemia: Status: Acute Category: Medical Code(s): D62 - Acute posthemorrhagic anemia (8) Peripheral arterial disease: Status: Acute Category: Medical Code(s): I73.9 - Peripheral vascular disease, unspecified Plan 57-year-old male with peripheral artery disease, diabetes, heart failure with reduced ejection fraction. Admitted for CHF exacerbation and NSTEMI. Cardiology consulted, appreciate their recommendations. Problems addressed as follows: Acute on chronic heart failure with reduced ejection fraction NSTEMI Hypertension Hyperlipidemia -Patient has diuresed well. Volume status negative. Holding further Lasix in anticipation for heart cath. -Given reduction in ejection fraction, would benefit from left heart cath, needs further workup of his anemia first per cardiology recommendations. -Continue Farxiga, carvedilol per cardiology recommendations. -Echo obtained with preliminary read showing EF of 30%. Will need consideration for LifeVest prior to discharge home. -Continue hydralazine and isosorbide for blood pressure control. -Continue Plavix 75 mg daily, Lipitor 40 mg nightly, aspirin 81 mg daily. KOKO versus CKD -Creatinine elevated to 2.9, BUN 86. Previous creatinine has been 2.2. At last month per chart review patient's creatinine was as high as 3.5. This is suspicious for his baseline. Has previously been referred to nephrology and not kept appointment. -Caution with nephrotoxins, monitor creatinine daily. CMP ordered for the morning. Iron deficient anemia -Iron studies show low levels in the setting of CKD. Hemoglobin 9.2 today. Hemoccult pending -Will consult surgery to evaluate for possible GI source with possible EGD. N.p.o. at midnight Diabetes: Basal insulin increase to glargine 25 units nightly. Continue with sliding scale insulin ACHS. A1c elevated at 7.5 DVT PPx Heparin gtt Full Code
[2023-04-07] MEDS: ATORVASTATIN 40MG TABLET 40 MG PO (21:02)
[2023-04-07] MEDS: INSULIN GLARGINE 100 UNITS/ML 3ML FLEXPEN 25 UNIT SQ (21:18)
[2023-04-07 21:39] LABS: POC Glucose,Bedside 221 (70-110)
[2023-04-07 22:20] LABS: PTT Heparin (inpatient only) 51.3 Seconds (23.6-34.0)
[2023-04-08] VITALS (19 sets, daily range): BP systolic 128–158; BP diastolic 70–97; PULSE 55–80; RESP 15–20; TEMP 36.4–37; O2SAT 92–100; BMI 27.2
--- NOTE | 2023-04-08 00:42 | PC.NURSE ---
NOTIFIED [facility] RE PTT 51.3. NO NEW ORDERS. REPEAT PTT AT [facility].
[2023-04-08 04:31] LABS: Basophils % 0.3 % (0.1-2.0); Eosinophils # 0.1 K/mm3 (0.0-0.4); Hematocrit 28.3 % (42.0-52.0); Hemoglobin 9.4 g/dL (14.1-18.0); Lymphocytes # 1.7 K/mm3 (0.7-4.5); Lymphocytes % 35.5 % (10-50); Mean Corpuscular HGB Conc 33.1 g/dL (31.8-35.4); Mean Corpuscular Hemoglobin 29.3 pg (27.0-31.2); Mean Corpuscular Volume 88.6 fl (80-94); Mean Platelet Volume 9.9 fl (7.4-10.4); Monocytes # 0.4 K/mm3 (0.1-1.0); Monocytes % 7.5 % (1.7-9.3); Neutrophils # 2.6 K/mm3 (1.8-7.8); Neutrophils % 55.6 % (37.0-80.0); Platelet Count 162 K/mm3 (142-424); Red Cell Distribution Width 14.9 % (11.5-17.5); White Blood Count 4.7 K/mm3 (4.8-10.8)
[2023-04-08 04:44] LABS: PTT Heparin (inpatient only) 50.4 Seconds (23.6-34.0)
[2023-04-08 04:45] LABS: Chloride 105 mmol/L (98-107); Sodium 140 mmol/L (136-145)
[2023-04-08 04:46] LABS: Potassium 4.1 mmoL/L (3.5-5.1)
[2023-04-08 04:48] LABS: Alanine Aminotransferase 21 U/L (12-78); Albumin Level 3.1 g/dl (3.5-5.0); Albumin/Globulin Ratio 1.3 (1.1-1.8); Alkaline Phosphatase 131 U/L (38-126); Anion Gap 10.1 mEq/L (5-15); Aspartate Amino Transferase 33 U/L (17-59); Bilirubin,Total 0.5 mg/dl (0.2-1.3); Blood Urea Nitrogen 76 mg/dl (9-20); Calcium 8.3 mg/dl (8.4-10.2); Carbon Dioxide 29 mmol/L (22.0-30.0); Creatinine Clearance Estimated 37 mL/min (50-200); Estimated Glomerular Filt Rate 23 ml/min (>60); GFR (African American) 27 ML/MIN (>60); Globulin 2.4 g/dL (1.3-3.2); Glucose 116 mg/dl (74-100); Total Protein,Serum 5.5 g/dl (6.3-8.2)
[2023-04-08 04:49] LABS: Magnesium 2.4 mg/dl (1.6-2.3)
--- NOTE | 2023-04-08 05:01 | PC.NURSE ---
0400 PTT 50.4. [facility] CONSULTED. IS STILL IN TARGET RANGE. CONTINUE HEPARINE DRIP AT 24ML/HR (1200 UNITS/HR). NEXT PTT DUE AT 1100.
[2023-04-08 05:20] LABS: POC Glucose,Bedside 115 (70-110)
--- NOTE | 2023-04-08 07:31 | P.CONS_ITS ---
History of Present Illness *Admission Date: 04/06/23 *Reason for visit:: Anemia *History of present illness: Patient is a 57-year-old male from [facility] with a history of COPD, coronary artery disease, hypertension, hyperlipidemia, diabetes mellitus, congestive heart failure, former smoker (quit about 1 month ago), who had presented to [facility] this week with CHF exacerbation. He was diuresed and discharged. After about 12 hours post discharge he had extreme shortness of breath. He presented to the emergency department at [facility] with respiratory distress requiring CPAP for oxygenation. He was administered DuoNebs, intravenous diuretic, Solu-Medrol and had some improvement in his symptoms. He never had any chest pain. Of note, patient had been worked up recently at [facility] for evaluation of troponins. Exact details unknown. Emergency department evaluation and [facility] revealed elevated troponins. He was therefore transferred to [facility] for further evaluation of possible non-STEMI as [facility] was on diversion. Patient was accepted by Dr. Mcfadden for transfer and was admitted to the hospitalist service a couple of days ago. Upon admission he had a hemoglobin of 10.3 with hematocrit of 31%. This has decreased to 9.4 and 28.3%. He has a BUN of 76 with a creatinine of 2.9. According to the record, prior outpatient lab from September 2022 revealed hemoglobin 13.4 with hematocrit of 40.9%. He states that he did have a colonoscopy years ago . Denies any history of ulcer disease. Denies any symptoms of hematemesis or melena. [facility] Disclaimer: The information contained in this section may have been updated after the patient was seen, as this information can be updated by other users. 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 (Updated 04/08/23 @ 08:11 by Marco Antonio Valentine MD) Above knee amputation of left lower extremity Acute blood loss anemia Asthma Atypical angina CAD in [place] artery Congestive heart failure COPD (chronic obstructive pulmonary disease) Diabetes mellitus Diabetes mellitus, type 2 HFrEF (heart failure with reduced ejection fraction) History of left heart catheterization (LHC) Hyperlipidemia Hypertension Peripheral arterial disease Stenosis of carotid artery Surgical History (Updated 04/07/23 @ 13:08 by Enedelia Ron APRN) History of cholecystectomy Status post above-knee amputation of left lower extremity Family History (Updated 04/06/23 @ 05:28 by MARGE Winchester) Family history of cancer Social History (Updated 04/06/23 @ 05:28 by MARGE Winchester) Smoking Status: Former smoker tobacco type: cigarettes packs per day: 2 alcohol intake: never current occupational status: employed and disabled Travel in the last 8 weeks: None housing: house current occupational exposures/hazards: No Review of Systems *Neurologic Neurologic: Reports system reviewed and no additional complaints, except as documented Meds Home Medications and Allergies Home Medications Medication Instructions Recorded Confirmed Type atorvastatin 80 mg tablet 80 mg PO DAILY 09/06/17 04/06/23 History gabapentin 600 mg tablet 600 mg PO TID 09/06/17 04/06/23 History albuterol sulfate 90 mcg/actuation 1 puff inhalation DAILYP PRN 04/06/23 04/06/23 History aerosol inhaler Shortness Of Breath Or Wheezing aspirin 81 mg chewable tablet 81 mg PO DAILY 04/06/23 04/06/23 History carvedilol 12.5 mg tablet 12.5 mg PO BID 04/06/23 04/06/23 History dapagliflozin propanediol 10 mg 10 mg PO DAILY 04/06/23 04/06/23 History tablet (Farxiga) entecavir 0.5 mg tablet 0.5 mg PO DIRECTED 04/06/23 04/06/23 History furosemide 40 mg tablet 40 mg PO DAILY 04/06/23 04/06/23 History hydralazine 50 mg tablet 50 mg PO TID 04/06/23 04/06/23 History hydrochlorothiazide 25 mg tablet 25 mg PO DAILY 04/06/23 04/06/23 History insulin aspart U-100 100 unit/mL 5 unit SQ TIDWMEAL 04/06/23 04/06/23 History (3 mL) subcutaneous pen (Novolog FlexPen U-100 Insulin aspart) insulin detemir U-100 100 unit/mL 13 unit SQ HS 04/06/23 04/06/23 History (3 mL) subcutaneous pen (Levemir FlexPen) isosorbide mononitrate 60 mg 60 mg PO DAILY 04/06/23 04/06/23 History tablet,extended release 24 hr loperamide 2 mg capsule 2 mg PO DAILYP PRN Diarrhea 04/06/23 04/06/23 History nitroglycerin 0.4 mg sublingual 0.4 mg sublingual Q5M PRN Chest 04/06/23 04/06/23 History tablet Pain umeclidinium 62.5 mcg/actuation 1 inh inhalation DAILY 04/06/23 04/06/23 History blister powder for inhalation (Incruse Ellipta) New Prescriptions to Start Prescriptions: Allergies Allergy/AdvReac Type Severity Reaction Status Date / Time No Known Allergies Allergy Unverified 03/16/17 14:11 Exam (Inpt) Vital signs and Labs for Last 24 Hours: Temp Pulse Resp BP Pulse Ox O2 Del Method O2 Flow Rate 98 F 80 17 138/74 98 Nasal Cannula 1 04/08/23 04:00 04/08/23 04:00 04/08/23 04:00 04/08/23 04:00 04/08/23 04:00 04/08/23 06:22 04/08/23 06:22 Laboratory Results - last 24 hr 04/07/23 06:55: WBC 6.0, RBC 3.12 L, Hgb 9.2 L, Hct 27.1 L, MCV 86.8, MCH 29.3, MCHC 33.8, RDW 14.7, Plt Count 162, MPV 9.7, Neut % (Auto) 65.2, Lymph % (Auto) 28.7, [place] % (Auto) 5.7, Eos % (Auto) 0.2, Baso % (Auto) 0.2, Neut # (Auto) 3.9, Lymph # (Auto) 1.7, [place] # (Auto) 0.3, Eos # (Auto) 0.0, Baso # (Auto) 0.0, Sodium 132 L, Potassium 4.0, Chloride 101, Carbon Dioxide 26, Anion Gap 9.0, BUN 86 H D, Creatinine 2.90 H, Estimated Creat Clear 37, Estimated GFR 23 L, Est GFR ( Amer) 27 L, Glucose 188 H, Calcium 7.9 L 04/07/23 09:10: APTT 62.0 H*, Iron 62, TIBC 234 L, Iron Saturation 26.54709, Ferritin 102 04/07/23 11:33: POC Glucose 243 H 04/07/23 16:07: APTT 53.5 H* 04/07/23 16:24: POC Glucose 356 H* 04/07/23 21:08: POC Glucose 221 H 04/07/23 22:02: APTT 51.3 H* 04/08/23 04:10: WBC 4.7 L, RBC 3.20 L, Hgb 9.4 L, Hct 28.3 L, MCV 88.6, MCH 29.3, MCHC 33.1, RDW 14.9, Plt Count 162, MPV 9.9, Neut % (Auto) 55.6, Lymph % (Auto) 35.5, [place] % (Auto) 7.5, Eos % (Auto) 1.0, Baso % (Auto) 0.3, Neut # (Auto) 2.6, Lymph # (Auto) 1.7, [place] # (Auto) 0.4, Eos # (Auto) 0.1, Baso # (Auto) 0.0, APTT 50.4 H*, Sodium 140, Potassium 4.1, Chloride 105, Carbon Dioxide 29, Anion Gap 10.1, BUN 76 H, Creatinine 2.90 H, Estimated Creat Clear 37, Estimated GFR 23 L, Est GFR ( Amer) 27 L, Glucose 116 H D, Calcium 8.3 L, Magnesium 2.4 H, Total Bilirubin 0.5, AST 33, ALT 21, Alkaline Phosphatase 131 H, Total Protein 5.5 L, Albumin 3.1 L, Globulin 2.4, Albumin/Globulin Ratio 1.3 04/08/23 05:12: POC Glucose 115 H I & O for Labs for Last 24 Hours: Intake & Output 04/05/23 04/06/23 04/07/23 04/08/23 11:59 11:59 11:59 11:59 Intake Total 2052 / 2052 1248 / 1248 Output Total 800 / 1250 2450 / 2450 250 / 250 Balance -800 / -1250 -397 / -397 998 / 998 Weight 208 lb 15.971 oz 201 lb 1.6 oz 201 lb 1.585 oz Constitutional: chronically ill appearing Head: Present normocephalic Respiratory: Present decreased breath sounds GI: Present soft; Absent tenderness Results Labs 04/08/23 04:10 04/08/23 04:10 Labs: Laboratory Results - last 24 hr 04/07/23 06:55: WBC 6.0, RBC 3.12 L, Hgb 9.2 L, Hct 27.1 L, MCV 86.8, MCH 29.3, MCHC 33.8, RDW 14.7, Plt Count 162, MPV 9.7, Neut % (Auto) 65.2, Lymph % (Auto) 28.7, [place] % (Auto) 5.7, Eos % (Auto) 0.2, Baso % (Auto) 0.2, Neut # (Auto) 3.9, Lymph # (Auto) 1.7, [place] # (Auto) 0.3, Eos # (Auto) 0.0, Baso # (Auto) 0.0, Sodium 132 L, Potassium 4.0, Chloride 101, Carbon Dioxide 26, Anion Gap 9.0, BUN 86 H D, Creatinine 2.90 H, Estimated Creat Clear 37, Estimated GFR 23 L, Est GFR ( Amer) 27 L, Glucose 188 H, Calcium 7.9 L 04/07/23 09:10: APTT 62.0 H*, Iron 62, TIBC 234 L, Iron Saturation 26.36435, Ferritin 102 04/07/23 11:33: POC Glucose 243 H 04/07/23 16:07: APTT 53.5 H* 04/07/23 16:24: POC Glucose 356 H* 04/07/23 21:08: POC Glucose 221 H 04/07/23 22:02: APTT 51.3 H* 04/08/23 04:10: WBC 4.7 L, RBC 3.20 L, Hgb 9.4 L, Hct 28.3 L, MCV 88.6, MCH 29.3, MCHC 33.1, RDW 14.9, Plt Count 162, MPV 9.9, Neut % (Auto) 55.6, Lymph % (Auto) 35.5, [place] % (Auto) 7.5, Eos % (Auto) 1.0, Baso % (Auto) 0.3, Neut # (Auto) 2.6, Lymph # (Auto) 1.7, [place] # (Auto) 0.4, Eos # (Auto) 0.1, Baso # (Auto) 0.0, APTT 50.4 H*, Sodium 140, Potassium 4.1, Chloride 105, Carbon Dioxide 29, Anion Gap 10.1, BUN 76 H, Creatinine 2.90 H, Estimated Creat Clear 37, Estimated GFR 23 L, Est GFR ( Amer) 27 L, Glucose 116 H D, Calcium 8. 3 L, Magnesium 2.4 H, Total Bilirubin 0.5, AST 33, ALT 21, Alkaline Phosphatase 131 H, Total Protein 5.5 L, Albumin 3.1 L, Globulin 2.4, Albumin/Globulin Ratio 1.3 04/08/23 05:12: POC Glucose 115 H Assessment and Plan *Assessment and plan (1) Anemia: Status: Acute Category: Medical Code(s): D64.9 - Anemia, unspecified Plan Unclear as to the etiology of the patient's anemia. Unclear if this is blood loss anemia such as gastrointestinal loss. Hemoglobin has been stable on heparin drip. Patient gives no history of melena or hematochezia or hematemesis. Etiology for anemia more likely related to chronic kidney disease. May be relatively low yield at this time to perform urgent upper endoscopy. I will send a stool Hemoccult. May need endoscopy with or without colonoscopy in the near future but not necessarily urgently.
[2023-04-08] MEDS: HYDRALAZINE HCL 25MG TABLET 50 MG PO ×2 (08:33→20:33)
[2023-04-08] MEDS: CALCIUM POLYCARBOPHIL 625MG TAB 1250 MG PO (08:34)
[2023-04-08] MEDS: CARVEDILOL 6.25MG TABLET 6.25 MG PO ×2 (08:34→20:33)
[2023-04-08] MEDS: ASPIRIN 81MG CHEWABLE TABLET 81 MG PO (08:34)
[2023-04-08] MEDS: ISOSORBIDE MONO 60MG TAB.ER.24H 60 MG PO (08:34)
[2023-04-08] MEDS: GABAPENTIN 300MG CAPSULE 300 MG PO ×2 (08:34→20:33)
[2023-04-08] MEDS: CLOPIDOGREL 75MG TAB 75 MG PO (08:34)
[2023-04-08] MEDS: DAPAGLIFLOZIN PROPANEDIOL 10 MG TABLET PO (08:50)
[2023-04-08 11:20] LABS: POC Glucose,Bedside 97 (70-110)
--- NOTE | 2023-04-08 11:45 | IR_ITS ---
APPROVED REPORT Patient Location: Inpatient [facility] Worker: SHARRI Reid RT (R) PROCEDURES Selective coronary angiogram Drug-eluting stent deployment to the proximal mid LAD with 3 drug-eluting stents in a contiguous manner INDICATION Acute non-ST elevation myocardial infarction, Coronary artery disease Informed consent was obtained prior to the procedure. COMPLICATIONS NONE Estimated Blood Loss: LESS THAN 10 ML TECHNIQUE One percent lidocaine used to anesthetize the right anterior aspect of the wrist. The right radial artery was accessed via the Seldinger technique. A 6 Japanese sheath was placed in the right radial artery. 2.5 mg of Verapamil, 800 mcg of nitroglycerin, 1mg Lidocaine and 5000 U Heparin were given through the arterial sheath. The papa catheter was also used to perform selective coronary angiogram. At the end of the diagnostic angiogram therapeutic heparin was administered giving a therapeutic ACT and the guide catheter was placed in the LAD followed by Choice PT extra-support wire plane distally. Primary stenting could not be performed therefore 2.5 x 20 mm noncompliant balloon was deployed at 24 christine throughout the mid LAD predilated the stenosis. A 3 mm x 38 mm [place] frontier stent was deployed at 20 christine in the mid LAD reducing the stenosis. An additional 3.5 x 26 mm [place] frontier stent was deployed at 24 christine proximal to this 3 mm stent yet still overlapping it. The balloon was advanced into the midportion of the 3 mm stent and then deployed at 20 christine to post dilate. An additional 2.75 x 15 mm [place] frontier stent was placed distal to the 3 mm stent yet still overlapping it and deployed at 16 christine. The balloon was brought back and deployed at 24 christine to mesh the 2 stents. A 3.75 x 12 mm noncompliant balloon was deployed in the proximal LAD at 24 christine to post dilate further. Excellent angiograph results were obtained with SNEHAL-3 flow being present down the LAD before and after the procedure. There was a heavily diseased calcified first diagonal artery which was lost during the procedure due to jailing. ANGIOGRAPHIC RESULTS The left main artery Normal The left anterior descending artery Has proximal 80% stenosis with a mid vessel 90% stenosis moderate-sized first diagonal artery has an ostial calcified 80 to 90% stenosis with distal 60 and 70% stenosis The circumflex artery Is a large dominant vessel and has 50 to 60% stenosis in a moderate-sized first obtuse marginal artery with a 30% stenosis in the terminal obtuse marginal artery. The right coronary artery Nondominant and proximally occluded The [place] ventriculogram reveals Not performed The left ventricular end-diastolic pressure Not measured IMPRESSION Critical proximal to mid LAD disease as described above Successful reconstruction of the proximal to mid LAD critical disease reduced to 0% with 3 contiguous drug-eluting stents Interval loss of a heavily diseased calcified moderate-sized first diagonal artery which was jailed due to heavy LAD plaque burden Moderate disease in a large first obtuse marginal artery which is best managed medically PLAN 1. Dual antiplatelet therapy 2. IV fluids 3. Chemistry panel in the morning 4. Recommend renal duplex. Patient has a high likelihood for renal artery stenosis based on multivessel disease and renal failure at such a young age 5. LDL less than 55 to be achieved with high intensity statin 6. Avoidance of tobacco products Electronically signed by : Robert Mcfadden MD 04/08/2023 17:03:46
[2023-04-08 12:02] LABS: PTT Heparin (inpatient only) 56.7 Seconds (23.6-34.0)
--- NOTE | 2023-04-08 13:23 | EXP.CARD.PN ---
Subjective Subjective Date: 04/08/23 Time: 09:30 Principal diagnosis: nonstemi, CKD Interval history: This is a 57-year-old gentleman who was admitted to the hospital for a non-STEMI. The patient's left cardiac catheterization had been postponed because of his elevated creatinine and anemia. The patient's creatinine is likely his baseline. His anemia is relatively new since September of this year. He has been evaluated by surgery and an urgent EGD/colonoscopy is not indicated at this time. They do plan to continue with outpatient workup on this patient. He denies any chest pain or pressure this morning. He states that he is still short of breath although it was slightly improved today. It is worse with exertion and improves with rest. He denies cough. He denies any lower extremity edema. He denies any fever, chills, nausea, vomiting, diarrhea, PND or orthopnea. Exam Data for Last 24 hours Vital signs and Labs for Last 24 Hours: Temp Pulse Resp BP Pulse Ox O2 Del Method O2 Flow Rate 98.0 F 68 17 128/70 98 Nasal Cannula 1 04/08/23 11:10 04/08/23 11:10 04/08/23 11:10 04/08/23 11:10 04/08/23 11:10 04/08/23 11:10 04/08/23 11:10 Laboratory Results - last 24 hr 04/07/23 16:07: APTT 53.5 H* 04/07/23 16:24: POC Glucose 356 H* 04/07/23 21:08: POC Glucose 221 H 04/07/23 22:02: APTT 51.3 H* 04/08/23 04:10: WBC 4.7 L, RBC 3.20 L, Hgb 9.4 L, Hct 28.3 L, MCV 88.6, MCH 29.3, MCHC 33.1, RDW 14.9, Plt Count 162, MPV 9.9, Neut % (Auto) 55.6, Lymph % (Auto) 35.5, [place] % (Auto) 7.5, Eos % (Auto) 1.0, Baso % (Auto) 0.3, Neut # (Auto) 2.6, Lymph # (Auto) 1.7, [place] # (Auto) 0.4, Eos # (Auto) 0.1, Baso # (Auto) 0.0, APTT 50.4 H*, Sodium 140, Potassium 4.1, Chloride 105, Carbon Dioxide 29, Anion Gap 10.1, BUN 76 H, Creatinine 2.90 H, Estimated Creat Clear 37, Estimated GFR 23 L, Est GFR ( Amer) 27 L, Glucose 116 H D, Calcium 8.3 L, Magnesium 2.4 H, Total Bilirubin 0.5, AST 33, ALT 21, Alkaline Phosphatase 131 H, Total Protein 5.5 L, Albumin 3.1 L, Globulin 2.4, Albumin/Globulin Ratio 1.3 04/08/23 05:12: POC Glucose 115 H 04/08/23 11:13: POC Glucose 97 04/08/23 11:15: APTT 56.7 H* I & O for Last 24 hours: Intake & Output 04/05/23 04/06/23 04/07/23 04/08/23 23:59 23:59 23:59 23:59 Intake Total 1104 / 1813 1549 / 2197 648 / 648 Output Total 2275 / 2375 1225 / 1225 1475 / 1475 Balance -1171 / -562 324 / 972 -827 / -827 Weight 208 lb 15.971 oz 201 lb 1.6 oz 201 lb 0.985 oz Constitutional Constitutional: no acute distress and average body habitus *Routine HEENT Exam Head: Present normocephalic and atraumatic ENT: Present mucous membranes moist *Routine Neck Exam Neck: Present supple, full ROM and normal carotid upstroke; Absent JVD, carotid bruit or lymphadenopathy *Routine Respiratory Exam Respiratory: Present CTA bilaterally, normal respiratory effort, able to speak in complete sentences and symmetric chest movement *Routine Cardiovascular Exam Cardiovascular: Present RRR, Normal S1 and Normal S2; Absent murmur or gallop *Routine Abdominal Exam Abdominal: Present soft and normoactive bowel sounds; Absent tenderness, distended or organomegaly *Routine Extremities Exam Extremities: Present full ROM, pulses intact, normal capillary refill and amputation (Left [id number] amputee); Absent cyanosis, clubbing or edema *Routine Skin Exam Skin: Present intact and warm; Absent erythema *Routine Neurological Exam Neurological: Present alert, oriented X3 and CN II-XII intact; Absent sensory deficit or motor deficit Routine Psychiatric Exam Psychiatric: Present normal affect Progress Note: A&P Assessment and plan (1) Non-STEMI (non-ST elevated myocardial infarction): Status: Acute (2) Atypical angina: Status: Acute (3) CAD in [place] artery: Status: Acute (4) HFrEF (heart failure with reduced ejection fraction): Status: Acute (5) Acute blood loss anemia: Status: Acute (6) Status post above-knee amputation of left lower extremity: Status: Acute (7) Peripheral arterial disease: Status: Acute (8) Stenosis of carotid artery: Status: Acute (9) Hyperlipidemia: Status: Acute (10) Diabetes mellitus: Status: Acute (11) COPD (chronic obstructive pulmonary disease): Status: Acute (12) Hypertension: Status: Acute Assessment and Plan Assessment and Plan for All Diagnoses:: Plan: 1. This is a 57-year-old gentleman who was admitted to the hospital for non-STEMI. He did have an elevated troponin at 1.59. He remains on a heparin drip. Will plan to proceed with left cardiac catheterization today to evaluate his coronary arteries. The patient has a known history of CAD with coronary stenting in either 2014 or 2015. 2. The patient has been educated the risk and benefits of proceeding with left cardiac catheterization. The patient verbalized understanding and is agreeable in proceeding with the procedure. 3. The patient will be n.p.o. in preparation for left cardiac catheterization. 4. The patient does have chronic kidney disease. His creatinine is 2.9 and has remained stable. Will use as little contrast as possible to avoid contrast nephropathy. 5. The patient is anemic. His hemoglobin today is 9.4. His hemoglobin in September 2022 was 13.4. He has been evaluated by general surgery and no EGD or colonoscopy is indicated while he is hospitalized. They will continue their workup on an outpatient basis. The patient would also likely benefit from hematology consult as an outpatient as well. 6. Coronary artery disease is present. Will plan to proceed with left cardiac catheterization as mentioned above. 7. His blood pressure is well-controlled. 8. His LDL goal is less than 55. His LDL is 80. He is on a statin. 9. The patient has a history of congestive heart failure. Preliminary echocardiogram shows his ejection fraction is at 30%. This is likely new onset HFrEF. As mentioned above we will proceed with left cardiac catheterization to make sure that his HFrEF is not ischemically mediated. 10. The patient has severe LV dysfunction. He is at increased risk for sudden cardiac due to his severe LV dysfunction. LifeVest should be in place prior to discharge home. 11. No NARESH, ARB or Entresto due to his renal function. 12. Continue Farxiga and carvedilol for HFrEF. 13. Will restart his Lasix following his left cardiac catheterization for HFrEF. 14. The patient is diabetic. He needs aggressive control of his diabetes. Will defer management this to the hospitalist. 15. Further recommendations will be made pending the patient's response to treatment and the results of his left cardiac catheterization today. Thank you for the opportunity to help participate in the care of this patient. All recommendations and orders are per Dr. Palm.
[2023-04-08] MEDS: 0.9 % SODIUM CHLORIDE 500 ML 25 ML IV (15:29)
[2023-04-08] MEDS: HEPARIN 1,000 UNITS/500ML NS (CATH LAB) 3000 UNIT IV (15:29)
[2023-04-08] MEDS: HEPARIN 1,000 UNITS/ML 10ML VIAL (CATH LAB) 10000 UNIT IV (15:29)
[2023-04-08] MEDS: VERAPAMIL 2.5MG/ML 2ML VIAL 2.5 MG IV (15:29)
[2023-04-08] MEDS: NITROGLYCERIN 800MCG/8ML SYR (CATH LAB) 800 MCG IA (15:29)
[2023-04-08] MEDS: diphenhydrAMINE 50MG/ML VIAL 50 MG IV (15:29)
[2023-04-08] MEDS: LIDOCAINE 1% 10ML MDV 20 ML IJ (15:30)
--- NOTE | 2023-04-08 16:04 | P.PN_ITS ---
Subjective *Date: 04/08/23 *Time: 16:04 Interval history: Patient with no chest pain today. Stable on 1 L nasal cannula oxygen. Kidney function stable. No signs of bleeding. Tolerating heparin drip without any melena or drop in hemoglobin. Tolerating p.o. intake until made n.p.o. last night. No nausea or vomiting. Afebrile. Medical Exam Vital signs and Labs for Last 24 Hours: Vital Signs Temp Pulse Pulse Resp BP Pulse Ox O2 Del Method 04/08/23 15:00 Nasal Cannula 04/08/23 12:00 60 04/08/23 13:00 Nasal Cannula 04/08/23 11:00 Nasal Cannula 04/08/23 11:10 98.0 F 68 17 128/70 98 Nasal Cannula 04/08/23 09:00 Nasal Cannula 04/08/23 08:00 Room Air 04/08/23 08:00 70 04/08/23 08:00 97.7 F 71 17 158/97 H 100 Nasal Cannula 04/08/23 06:22 Nasal Cannula 04/08/23 04:51 Nasal Cannula 04/08/23 04:00 55 L 04/08/23 04:00 98 F 80 17 138/74 98 04/08/23 03:00 Nasal Cannula 04/08/23 01:00 Nasal Cannula 04/08/23 00:00 66 04/07/23 23:00 Nasal Cannula 04/07/23 21:00 Nasal Cannula 04/07/23 20:00 97 Nasal Cannula 04/08/23 00:00 98 F 66 17 141/78 H 99 04/07/23 20:00 76 04/07/23 20:00 98 F 77 18 140/73 97 Room Air 04/07/23 18:18 Nasal Cannula 04/07/23 17:00 Nasal Cannula O2 Flow Rate 04/08/23 15:00 2 04/08/23 12:00 04/08/23 13:00 1 04/08/23 11:00 1 04/08/23 11:10 1 04/08/23 09:00 1 04/08/23 08:00 04/08/23 08:00 04/08/23 08:00 1 04/08/23 06:22 1 04/08/23 04:51 1 04/08/23 04:00 04/08/23 04:00 04/08/23 03:00 1 04/08/23 01:00 1 04/08/23 00:00 04/07/23 23:00 1 04/07/23 21:00 1 04/07/23 20:00 1 04/08/23 00:00 04/07/23 20:00 04/07/23 20:00 04/07/23 18:18 1 04/07/23 17:00 1 Intake and Output 04/08/23 04/08/23 04/08/23 07:59 15:59 23:59 Intake Total 648 / 648 0 / 648 Output Total 600 / 1475 875 / 1475 Balance 48 / -827 -875 / -827 Intake: Intake, Oral Amount 0 / 0 Intake, Total IV Amount 648 / 648 Heparin Sodium,Porcine/D5w 500 648 / 648 ml @ 1,200 UNITS/HR 24 mls/hr IV .[id number] [facility] Rx#:[id number] Output: Output, Urine Amount 600 / 1475 875 / 1475 Other: Number of Unmeasured Voids 0 Weight 91.217 kg 91.2 kg Patient Weight 04/08/23 23:59 Weight 91.2 kg Laboratory Results - last 24 hr 04/07/23 16:07: APTT 53.5 H* 04/07/23 16:24: POC Glucose 356 H* 04/07/23 21:08: POC Glucose 221 H 04/07/23 22:02: APTT 51.3 H* 04/08/23 04:10: WBC 4.7 L, RBC 3.20 L, Hgb 9.4 L, Hct 28.3 L, MCV 88.6, MCH 29.3, MCHC 33.1, RDW 14.9, Plt Count 162, MPV 9.9, Neut % (Auto) 55.6, Lymph % (Auto) 35.5, [place] % (Auto) 7.5, Eos % (Auto) 1.0, Baso % (Auto) 0.3, Neut # (Auto) 2.6, Lymph # (Auto) 1.7, [place] # (Auto) 0.4, Eos # (Auto) 0.1, Baso # (Auto) 0.0, APTT 50.4 H*, Sodium 140, Potassium 4.1, Chloride 105, Carbon Dioxide 29, Anion Gap 10.1, BUN 76 H, Creatinine 2.90 H, Estimated Creat Clear 37, Estimated GFR 23 L, Est GFR ( Amer) 27 L, Glucose 116 H D, Calcium 8.3 L, Magnesium 2.4 H, Total Bilirubin 0.5, AST 33, ALT 21, Alkaline Phosphatase 131 H, Total Protein 5.5 L, Albumin 3.1 L, Globulin 2.4, Albumin/Globulin Ratio 1.3 04/08/23 05:12: POC Glucose 115 H 04/08/23 11:13: POC Glucose 97 04/08/23 11:15: APTT 56.7 H* I & O for Labs for Last 24 Hours: Intake & Output 04/05/23 04/06/23 04/07/23 04/08/23 23:59 23:59 23:59 23:59 Intake Total 1104 / 1813 1549 / 2197 648 / 648 Output Total 2275 / 2375 1225 / 1225 1475 / 1475 Balance -1171 / -562 324 / 972 -827 / -827 Weight 94.8 kg 91.217 kg 91.2 kg Constitutional: Present no acute distress and chronically ill appearing Head: Present atraumatic and normocephalic ENT: Present normal exam Neck: Present normal inspection Respiratory: Present prolonged expiratory phase and diminished air movement; Absent rhonchi, wheezes or crackles Cardiac: Present Reg Rate and Rhythm GI: Present soft and normal bowel sounds; Absent distention or tenderness Extremities: Present normal inspection and full ROM Comment:: Left AKA Skin: Present intact; Absent erythema Neuro: Present Grossly Intact and moves all extremities Assessment and Plan *Assessment and plan (1) Acute exacerbation of CHF (congestive heart failure): Status: Acute Qualifiers: Heart failure type: unspecified Qualified Code(s): I50.9 - Heart failure, unspecified Category: Medical Code(s): I50.9 - Heart failure, unspecified (2) Non-STEMI (non-ST elevated myocardial infarction): Status: Acute Category: Medical Code(s): I21.4 - Non-ST elevation (NSTEMI) myocardial infarction (3) COPD (chronic obstructive pulmonary disease): Status: Acute Qualifiers: COPD type: chronic bronchitis Chronic bronchitis type: unspecified Qualified Code(s): J42 - Unspecified chronic bronchitis Category: Medical Code(s): J44.9 - Chronic obstructive pulmonary disease, unspecified (4) Hypertension: Status: Acute Qualifiers: Hypertension type: primary hypertension Qualified Code(s): I10 - Essential (primary) hypertension Category: Medical Code(s): I10 - Essential (primary) hypertension (5) Diabetes mellitus: Status: Acute Qualifiers: Diabetes mellitus type: type 2 Diabetes mellitus bed bug exterminator insulin use: with bed bug exterminator use Diabetes mellitus complication status: without complication Qualified Code(s): E11.9 - Type 2 diabetes mellitus without complications; Z79.4 - FDC (current) use of insulin Category: Medical Code(s): E11.9 - Type 2 diabetes mellitus without complications (6) HFrEF (heart failure with reduced ejection fraction): Status: Acute Category: Medical Code(s): I50.20 - Unspecified systolic (congestive) heart failure (7) Acute blood loss anemia: Status: Acute Category: Medical Code(s): D62 - Acute posthemorrhagic anemia (8) Peripheral arterial disease: Status: Acute Category: Medical Code(s): I73.9 - Peripheral vascular disease, unspecified Plan 57-year-old male with peripheral artery disease, diabetes, heart failure with reduced ejection fraction. Admitted for CHF exacerbation and NSTEMI. Cardiology consulted, appreciate their recommendations. Continues to require patient management. Planning for heart cath. Problems addressed as follows: Acute on chronic heart failure with reduced ejection fraction NSTEMI Hypertension Hyperlipidemia -Patient has diuresed well. Volume status negative. Holding further Lasix in anticipation for heart cath. -Discussed case with cardiology today, recommend proceeding with left heart cath today. -Continue Farxiga, carvedilol per cardiology recommendations. -Echo obtained with preliminary read showing EF of 30%. Will need consideration for LifeVest prior to discharge home. -Continue hydralazine and isosorbide for blood pressure control. -Continue Plavix 75 mg daily, Lipitor 40 mg nightly, aspirin 81 mg daily. KOKO versus CKD -Creatinine 2.9, BUN 76. Previous creatinine has been 2.2. At last month per chart review patient's creatinine was as high as 3.5. This is suspicious for his baseline. Has previously been referred to nephrology and not kept appointment. -Caution with nephrotoxins, monitor creatinine daily. CMP ordered for the morning. -Avoiding NARESH/ARB/Entresto at this time Iron deficient anemia, most consistent with secondary chronic kidney disease -Iron studies show low levels in the setting of CKD. Hemoglobin 9.2 today. Hemoccult pending; no signs of GI bleed even while on heparin drip -Consulted surgery, discussed case today, recommend that EGD would be of low yield. Recommend proceeding with left heart cath. Hemoglobin has been stable. Diabetes: Basal insulin increase to glargine 25 units nightly. Continue with sliding scale insulin ACHS. A1c elevated at 7.5 DVT PPx Heparin gtt Full Code
[2023-04-08] MEDS: MIDAZOLAM HCL 1MG/1ML 5ML VIAL 1 MG IV (16:26)
[2023-04-08] MEDS: FENTANYL 100MCG/2ML VIAL 50 MCG IV (16:27)
[2023-04-08 16:39] LABS: CATHL Activated Clotting Time 292 SEC (74-125)
[2023-04-08] MEDS: IOPAMIDOL-370 (76%);100ML BOTTLE 175 ML IV (16:40)
[2023-04-08 18:35] LABS: POC Glucose,Bedside 81 (70-110)
[2023-04-08 20:29] LABS: POC Glucose,Bedside 199 (70-110)
[2023-04-08] MEDS: humaLOG 100 UNITS/ML 3ML VIAL (SSI) SQ (20:32)
[2023-04-08] MEDS: INSULIN GLARGINE 100 UNITS/ML 3ML FLEXPEN 25 UNIT SQ (20:32)
[2023-04-08] MEDS: ATORVASTATIN 40MG TABLET 40 MG PO (20:33)
[2023-04-08] MEDS: LOPERAMIDE 2MG CAPSULE 2 MG PO (20:39)
[2023-04-08 22:40] LABS: Occult Blood,Stool Negative (Negative)
--- NOTE | 2023-04-08 22:42 | PC.NURSE ---
2100 REMOVAL OF AIR FROM TRACELET COMPLETE. NO S/S OF SWELLING OR BLEEDING AT THE RIGHT RADIAL CATH SITE. 2X2 GAUZE COVERED WITH TEGADERM APPLIED TI SITE.
[2023-04-08 22:52] LABS: PTT Heparin (inpatient only) 26.1 Seconds (23.6-34.0)
[2023-04-09] VITALS (7 sets, daily range): BP systolic 130–155; BP diastolic 75–89; PULSE 66–80; RESP 16–18; TEMP 36.6–37; O2SAT 95–99; BMI 27.3
[2023-04-09 05:06] LABS: POC Glucose,Bedside 158 (70-110)
[2023-04-09] MEDS: humaLOG 100 UNITS/ML 3ML VIAL (SSI) SQ ×2 (05:06→21:51)
[2023-04-09 07:16] LABS: Basophils % 0.3 % (0.1-2.0); Eosinophils # 0.1 K/mm3 (0.0-0.4); Eosinophils % 1.8 % (0.1-12.0); Hematocrit 30.7 % (42.0-52.0); Hemoglobin 10.2 g/dL (14.1-18.0); Lymphocytes # 1.3 K/mm3 (0.7-4.5); Lymphocytes % 24.9 % (10-50); Mean Corpuscular HGB Conc 33.3 g/dL (31.8-35.4); Mean Corpuscular Hemoglobin 29.6 pg (27.0-31.2); Mean Corpuscular Volume 88.9 fl (80-94); Monocytes # 0.4 K/mm3 (0.1-1.0); Monocytes % 6.9 % (1.7-9.3); Neutrophils # 3.4 K/mm3 (1.8-7.8); Neutrophils % 66.1 % (37.0-80.0); Platelet Count 171 K/mm3 (142-424); Red Blood Count 3.45 M/mm3 (4.60-6.20); Red Cell Distribution Width 14.9 % (11.5-17.5); White Blood Count 5.1 K/mm3 (4.8-10.8)
[2023-04-09 08:28] LABS: Chloride 108 mmol/L (98-107)
[2023-04-09 08:29] LABS: Potassium 4.7 mmoL/L (3.5-5.1); Sodium 139 mmol/L (136-145)
[2023-04-09 08:31] LABS: Alanine Aminotransferase 25 U/L (12-78); Alkaline Phosphatase 123 U/L (38-126); Aspartate Amino Transferase 70 U/L (17-59); Bilirubin,Total 0.6 mg/dl (0.2-1.3); Blood Urea Nitrogen 62 mg/dl (9-20); Creatinine Clearance Estimated 45 mL/min (50-200); Estimated Glomerular Filt Rate 28 ml/min (>60); GFR (African American) 34 ML/MIN (>60)
[2023-04-09 08:32] LABS: Albumin Level 3.1 g/dl (3.5-5.0); Albumin/Globulin Ratio 1.1 (1.1-1.8); Anion Gap 10.7 mEq/L (5-15); Calcium 8.3 mg/dl (8.4-10.2); Carbon Dioxide 25 mmol/L (22.0-30.0); Globulin 2.7 g/dL (1.3-3.2); Glucose 131 mg/dl (74-100); Magnesium 2.3 mg/dl (1.6-2.3); Total Protein,Serum 5.8 g/dl (6.3-8.2)
[2023-04-09] MEDS: HYDRALAZINE HCL 25MG TABLET 50 MG PO ×3 (08:50→21:11)
[2023-04-09] MEDS: CLOPIDOGREL 75MG TAB 75 MG PO (08:50)
[2023-04-09] MEDS: GABAPENTIN 300MG CAPSULE 300 MG PO ×3 (08:50→21:11)
[2023-04-09] MEDS: ASPIRIN 81MG CHEWABLE TABLET 81 MG PO (08:50)
[2023-04-09] MEDS: ISOSORBIDE MONO 60MG TAB.ER.24H 60 MG PO (08:50)
[2023-04-09] MEDS: CALCIUM POLYCARBOPHIL 625MG TAB 1250 MG PO (08:50)
[2023-04-09] MEDS: CARVEDILOL 6.25MG TABLET 6.25 MG PO (08:50)
[2023-04-09] MEDS: DAPAGLIFLOZIN PROPANEDIOL 10 MG TABLET PO (08:50)
[2023-04-09 10:12] LABS: POC Glucose,Bedside 115 (70-110)
[2023-04-09] MEDS: CARVEDILOL 12.5MG TABLET 12.5 MG PO ×2 (11:50→21:11)
--- NOTE | 2023-04-09 13:07 | EXP.CARD.PN ---
Subjective Subjective Date: 04/09/23 Time: 11:30 Principal diagnosis: nonstemi, CKD, anemia, HFrEF Interval history: This is a 57-year-old gentleman who was admitted to the hospital with a non-STEMI. The patient underwent left cardiac catheterization yesterday and had stenting to his LAD with 3 drug-eluting stents. There was interval loss of a heavily diseased calcified moderate-sized first diagonal artery which was jailed due to the heavy LAD plaque burden. There was moderate disease in the left first obtuse marginal artery which is best managed medically. The patient will be on Plavix and aspirin for dual antiplatelet therapy. This morning he denies any chest pain or pressure. He states that his shortness of breath has improved. He denies any lower extremity edema. He denies any fever, chills, nausea, vomiting, diarrhea, PND or orthopnea. The patient reports that he is ready to be discharged home. The patient does have HFrEF with an ejection fraction of approximately 30%. Exam Data for Last 24 hours Vital signs and Labs for Last 24 Hours: Temp Pulse Resp BP Pulse Ox O2 Del Method O2 Flow Rate 98.6 F 76 18 151/85 H 98 Nasal Cannula 1 04/09/23 12:00 04/09/23 12:00 04/09/23 12:00 04/09/23 12:00 04/09/23 12:00 04/09/23 12:00 04/09/23 12:00 Laboratory Results - last 24 hr 04/08/23 16:59: Activated Clotting Time 292 H* 04/08/23 17:08: POC Glucose 81 04/08/23 20:19: Stool Occult Blood Negative 04/08/23 20:20: POC Glucose 199 H 04/08/23 22:15: APTT 26.1 04/09/23 04:59: POC Glucose 158 H 04/09/23 06:47: WBC 5.1, RBC 3.45 L, Hgb 10.2 L, Hct 30.7 L, MCV 88.9, MCH 29.6, MCHC 33.3, RDW 14.9, Plt Count 171, MPV 10.0, Neut % (Auto) 66.1, Lymph % (Auto) 24.9, [place] % (Auto) 6.9, Eos % (Auto) 1.8, Baso % (Auto) 0.3, Neut # (Auto) 3.4, Lymph # (Auto) 1.3, [place] # (Auto) 0.4, Eos # (Auto) 0.1, Baso # (Auto) 0.0, Sodium 139, Potassium 4.7, Chloride 108 H, Carbon Dioxide 25, Anion Gap 10.7, BUN 62 H, Creatinine 2.40 H, Estimated Creat Clear 45, Estimated GFR 28 L, Est GFR ( Amer) 34 L D, Glucose 131 H, Calcium 8.3 L, Magnesium 2.3, Total Bilirubin 0.6, AST 70 H D, ALT 25, Alkaline Phosphatase 123, Total Protein 5.8 L, Albumin 3.1 L, Globulin 2.7, Albumin/Globulin Ratio 1.1 04/09/23 10:02: POC Glucose 115 H I & O for Last 24 hours: Intake & Output 04/06/23 04/07/23 04/08/23 04/09/23 23:59 23:59 23:59 23:59 Intake Total 1104 / 1813 1549 / 2197 1188 / 1188 210 / 210 Output Total 2275 / 2375 1225 / 1225 1675 / 1675 1675 / 1675 Balance -1171 / -562 324 / 972 -487 / -487 -1465 / -1465 Weight 208 lb 15.971 oz 201 lb 1.6 oz 201 lb 0.985 oz 202 lb 3.2 oz Constitutional Constitutional: no acute distress and average body habitus *Routine HEENT Exam Head: Present normocephalic and atraumatic ENT: Present mucous membranes moist *Routine Neck Exam Neck: Present supple, full ROM and normal carotid upstroke; Absent JVD, carotid bruit or lymphadenopathy *Routine Respiratory Exam Respiratory: Present CTA bilaterally, normal respiratory effort, able to speak in complete sentences and symmetric chest movement *Routine Cardiovascular Exam Cardiovascular: Present RRR, Normal S1 and Normal S2; Absent murmur or gallop *Routine Abdominal Exam Abdominal: Present soft and normoactive bowel sounds; Absent tenderness, distended or organomegaly *Routine Extremities Exam Extremities: Present full ROM, pulses intact, normal capillary refill and amputation (Left [id number] amputee); Absent cyanosis, clubbing or edema *Routine Skin Exam Skin: Present intact and warm; Absent erythema *Routine Neurological Exam Neurological: Present alert, oriented X3 and CN II-XII intact; Absent sensory deficit or motor deficit Routine Psychiatric Exam Psychiatric: Present normal affect Progress Note: A&P Assessment and plan (1) Non-STEMI (non-ST elevated myocardial infarction): Status: Acute (2) HFrEF (heart failure with reduced ejection fraction): Status: Acute (3) CAD in [place] artery: Status: Acute (4) Ischemic cardiomyopathy: Status: Acute (5) LV dysfunction: Status: Acute (6) Stented coronary artery: Status: Acute (7) COPD (chronic obstructive pulmonary disease): Status: Acute (8) Hypertension: Status: Acute (9) Diabetes mellitus: Status: Acute (10) Acute blood loss anemia: Status: Acute (11) Peripheral arterial disease: Status: Acute (12) Hyperlipidemia: Status: Acute (13) Stenosis of carotid artery: Status: Acute (14) Status post above-knee amputation of left lower extremity: Status: Acute (15) Thoracic aneurysm without mention of rupture: Status: Acute Assessment and Plan Assessment and Plan for All Diagnoses:: Plan: 1. The patient was admitted to the hospital for non-STEMI. He did have an elevated troponin but his left cardiac catheterization was initially postponed due to his renal function and new onset anemia. However, the patient did undergo a left cardiac catheterization yesterday and had stenting to his LAD with 3 drug-eluting stents. The patient tolerated the procedure well and will be on dual antiplatelet therapy with Plavix and aspirin. 2. The patient does have chronic kidney disease. His creatinine is down to 2.4 today and stable. 3. The patient did have new onset anemia. His hemoglobin is stable at 10.2. He has been evaluated by general surgery during his hospitalization and will be worked up on an outpatient basis with EGD and colonoscopy. He would also benefit from a hematology referral on an outpatient basis as well. 4. The patient's echocardiogram did show an ejection fraction of 30%. The patient has severe LV dysfunction. He had his increased risk for sudden cardiac due to his severe LV dysfunction. We do recommend a LifeVest to be in place prior to discharge home. His LifeVest has been ordered. And the patient is agreeable and wearing this. 5. Coronary artery disease is stable. 6. His blood pressure is elevated today. Will increase his carvedilol to 12.5 mg p.o. twice daily. Continue hydralazine and isosorbide. 7. His LDL goal is less than 55. His LDL is 80. He has been started on a statin. 8. No NARESH, ARB or Entresto due to his renal function. 9. Continue Farxiga and carvedilol for HFrEF. 10. Will restart his Lasix at this time. Will give him Lasix 40 mg p.o. daily. No spironolactone due to his renal function. 11. The patient is diabetic. He will need aggressive control of his diabetes. Will defer management of this to the hospitalist. 12. Echocardiogram showed a borderline dilated ascending aorta measuring 3.7 cm. The patient will need a CTA of the chest for further evaluation of the thoracic aneurysm. This can be done on an outpatient basis. 13. The patient is stable for discharge home today from a cardiac standpoint. The patient will need to be sent home on the following cardiac medications: Aspirin 81 mg daily, atorvastatin 40 mg p.o. nightly, carvedilol 12.5 mg p.o. twice daily, Plavix 75 mg daily, Farxiga 10 mg daily, Lasix 40 mg daily, isosorbide 30 mg daily, hydralazine 50 mg p.o. 3 times daily. The patient will need to follow-up in cardiology clinic next week. Thank you for the opportunity to participate in the care of this patient. All recommendations and orders are per Dr. Palm.
[2023-04-09] MEDS: FUROSEMIDE 40 MG TABLET PO (13:40)
--- NOTE | 2023-04-09 14:14 | SW/DCPLANNER ---
Addendum entered by Nupur Klein 04/09/23 14:45: [facility] accept [facility] patient. Patient's insurance is not in network w/ any agencies at this time. I have updated patient's nurse and patient. Original Note: I spoke w/ this patient regarding plans once medically stable for discharge. MD has recommended that patient return home w/ home health services: patient is agreeable. Due to patient's insurance information/order will be faxed to [facility]. I will follow up w/ [facility] once information/order is reviewed. Patient will discharge home tomorrow morning 04/10/23.
--- NOTE | 2023-04-09 15:42 | PC.NURSE ---
Pt. doesn't have a ride home today or keys to get into his house. He is to be discharged in the am.
--- NOTE | 2023-04-09 16:46 | PC.NURSE ---
Pt. called out said he was bleeding. He had pulled out his iv and a new one will be placed.
--- NOTE | 2023-04-09 16:53 | P.PN_ITS ---
Subjective *Date: 04/09/23 *Time: 17:04 Interval history: Patient is weaned to room air. Tolerating p.o. intake. Denies any nausea, chest pain, vomiting. Does complain of feeling weak however. Extensive discussion on rounds, patient's son is unable to pick him up today and he does not have a way to get into his home as he does not have a padilla, his family is the padilla. Discussed discharging today first tomorrow. Medical Exam Vital signs and Labs for Last 24 Hours: Vital Signs Temp Pulse Pulse Resp BP Pulse Ox O2 Del Method 04/09/23 16:00 98.2 F 69 18 144/79 H 99 Nasal Cannula 04/09/23 16:12 Room Air 04/09/23 14:05 Room Air 04/09/23 12:00 80 04/09/23 12:00 98.6 F 76 18 151/85 H 98 Nasal Cannula 04/09/23 11:53 Room Air 04/09/23 09:53 Nasal Cannula 04/09/23 08:00 80 04/09/23 08:00 98.1 F 77 18 155/87 H 95 Room Air 04/09/23 08:00 97 Nasal Cannula 04/09/23 08:57 Nasal Cannula 04/09/23 06:20 Room Air 04/09/23 05:00 Room Air 04/09/23 04:00 97.9 F 72 16 150/84 H 97 04/09/23 04:00 70 04/09/23 03:00 Room Air 04/09/23 01:00 Room Air 04/09/23 00:00 98 F 79 16 139/83 96 04/09/23 00:00 66 04/08/23 22:40 Room Air 04/08/23 21:45 97.6 F 67 18 143/86 H 97 Room Air 04/08/23 21:00 Room Air 04/08/23 20:00 96 Room Air 04/08/23 20:45 97.8 F 70 20 137/83 96 Room Air 04/08/23 19:45 98.0 F 65 18 145/87 H 97 Room Air 04/08/23 19:15 98.6 F 72 20 142/86 H 92 L Room Air 04/08/23 20:00 70 04/08/23 18:45 97.9 F 62 16 141/81 H 98 Room Air 04/08/23 18:21 Room Air 04/08/23 17:30 98.3 F 72 16 139/80 96 Room Air 04/08/23 17:15 98.0 F 68 16 153/86 H 97 Room Air 04/08/23 17:00 98.0 F 62 16 140/80 97 Room Air 04/08/23 17:00 Room Air O2 Flow Rate 04/09/23 16:00 1 04/09/23 16:12 04/09/23 14:05 04/09/23 12:00 04/09/23 12:00 1 04/09/23 11:53 04/09/23 09:53 2 04/09/23 08:00 04/09/23 08:00 04/09/23 08:00 2 04/09/23 08:57 2 04/09/23 06:20 04/09/23 05:00 04/09/23 04:00 04/09/23 04:00 04/09/23 03:00 04/09/23 01:00 04/09/23 00:00 04/09/23 00:00 04/08/23 22:40 04/08/23 21:45 04/08/23 21:00 04/08/23 20:00 04/08/23 20:45 04/08/23 19:45 04/08/23 19:15 04/08/23 20:00 04/08/23 18:45 04/08/23 18:21 04/08/23 17:30 04/08/23 17:15 04/08/23 17:00 04/08/23 17:00 Intake and Output 04/09/23 04/09/23 04/09/23 07:59 15:59 23:59 Intake Total 270 / 270 Output Total 2024 772024 350 2024 Balance -900 / -1755 -505 / -1755 -350 / -1755 Intake: Intake, Oral Amount 270 / 270 Output: Output, Urine Amount / 2024 772024 350 2024 Other: Number of Unmeasured Voids 2 Weight 91.716 kg Patient Weight 04/09/23 23:59 Weight 91.716 kg Laboratory Results - last 24 hr 04/08/23 17:08: POC Glucose 81 04/08/23 20:19: Stool Occult Blood Negative 04/08/23 20:20: POC Glucose 199 H 04/08/23 22:15: APTT 26.1 04/09/23 04:59: POC Glucose 158 H 04/09/23 06:47: WBC 5.1, RBC 3.45 L, Hgb 10.2 L, Hct 30.7 L, MCV 88.9, MCH 29.6, MCHC 33.3, RDW 14.9, Plt Count 171, MPV 10.0, Neut % (Auto) 66.1, Lymph % (Auto) 24.9, [place] % (Auto) 6.9, Eos % (Auto) 1.8, Baso % (Auto) 0.3, Neut # (Auto) 3.4, Lymph # (Auto) 1.3, [place] # (Auto) 0.4, Eos # (Auto) 0.1, Baso # (Auto) 0.0, Sodium 139, Potassium 4.7, Chloride 108 H, Carbon Dioxide 25, Anion Gap 10.7, BUN 62 H, Creatinine 2.40 H, Estimated Creat Clear 45, Estimated GFR 28 L, Est GFR ( Amer) 34 L D, Glucose 131 H, Calcium 8.3 L, Magnesium 2.3, Total Bilirubin 0.6, AST 70 H D, ALT 25, Alkaline Phosphatase 123, Total Protein 5.8 L , Albumin 3.1 L, Globulin 2.7, Albumin/Globulin Ratio 1.1 04/09/23 10:02: POC Glucose 115 H I & O for Labs for Last 24 Hours: Intake & Output 04/06/23 04/07/23 04/08/23 04/09/23 23:59 23:59 23:59 23:59 Intake Total 1104 / 1813 1549 / 2197 1188 / 1188 270 / 270 Output Total 2275 / 2375 1225 / 1225 1675 / 1675 2024 / 2024 Balance -1171 / -562 324 / 972 -487 / -487 -1755 / -1755 Weight 94.8 kg 91.217 kg 91.2 kg 91.716 kg Constitutional: Present no acute distress and chronically ill appearing Head: Present atraumatic and normocephalic ENT: Present normal exam Neck: Present normal inspection Respiratory: Present prolonged expiratory phase and diminished air movement; Absent rhonchi, wheezes or crackles Cardiac: Present Reg Rate and Rhythm GI: Present soft and normal bowel sounds; Absent distention or tenderness Extremities: Present normal inspection and full ROM Comment:: Left AKA Skin: Present intact; Absent erythema Neuro: Present Grossly Intact and moves all extremities Assessment and Plan *Assessment and plan (1) Acute exacerbation of CHF (congestive heart failure): Status: Acute Qualifiers: Heart failure type: unspecified Qualified Code(s): I50.9 - Heart failure, unspecified Category: Medical Code(s): I50.9 - Heart failure, unspecified (2) Non-STEMI (non-ST elevated myocardial infarction): Status: Acute Category: Medical Code(s): I21.4 - Non-ST elevation (NSTEMI) myocardial infarction (3) COPD (chronic obstructive pulmonary disease): Status: Acute Qualifiers: COPD type: chronic bronchitis Chronic bronchitis type: unspecified Qualified Code(s): J42 - Unspecified chronic bronchitis Category: Medical Code(s): J44.9 - Chronic obstructive pulmonary disease, unspecified (4) Hypertension: Status: Acute Qualifiers: Hypertension type: primary hypertension Qualified Code(s): I10 - Essential (primary) hypertension Category: Medical Code(s): I10 - Essential (primary) hypertension (5) Diabetes mellitus: Status: Acute Qualifiers: Diabetes mellitus complication status: without complication Diabetes mellitus halfway insulin use: with terminal operations supervisor use Diabetes mellitus type: type 2 Qualified Code(s): E11.9 - Type 2 diabetes mellitus without complications; Z79.4 - intermodal customer service (current) use of insulin Category: Medical Code(s): E11.9 - Type 2 diabetes mellitus without complications (6) HFrEF (heart failure with reduced ejection fraction): Status: Acute Category: Medical Code(s): I50.20 - Unspecified systolic (congestive) heart failure (7) Acute blood loss anemia: Status: Acute Category: Medical Code(s): D62 - Acute posthemorrhagic anemia (8) Peripheral arterial disease: Status: Acute Category: Medical Code(s): I73.9 - Peripheral vascular disease, unspecified Plan 57-year-old male with peripheral artery disease, diabetes, heart failure with reduced ejection fraction. Admitted for CHF exacerbation and NSTEMI. Cardiology consulted, appreciate their recommendations. Continues to require patient management. Planning for discharge tomorrow if remains stable. Problems addressed as follows: Acute on chronic heart failure with reduced ejection fraction NSTEMI Hypertension Hyperlipidemia -Cardiology consulted, appreciate their recommendations. Patient underwent left heart cath yesterday, 3 contiguous stents to the LAD. Tolerated procedure well. Continue dual antiplatelet therapy with Plavix 75 mg daily and aspirin 81 mg daily. - Echocardiogram with a EF of 30%. LifeVest to be provided prior to discharge home. - Blood pressure still elevated, increase carvedilol to 12.5 mg twice daily, continue hydralazine and isosorbide. - Continue Lasix 40 mg daily. -Continue Lipitor 40 mg nightly. KOKO versus CKD -Creatinine 2.4, BUN 62. Doing well during admission. This appears to be his baseline range -Caution with nephrotoxins, monitor creatinine daily. CMP ordered for the morning. -Avoiding NARESH/ARB/Entresto at this time Iron deficient anemia, most consistent with secondary chronic kidney disease -Iron studies show low levels in the setting of CKD. Hemoglobin 9.2 today. Hemoccult pending; no signs of GI bleed even while on heparin drip -Consulted surgery, discussed case today, recommend that EGD would be of low yield. Recommend proceeding with left heart cath. Hemoglobin has been stable. Diabetes: Basal insulin glargine 25 units nightly. Continue with sliding scale insulin ACHS. A1c elevated at 7.5 cardiac diet Full Code
--- NOTE | 2023-04-09 16:55 | PC.NURSE ---
Pt. refused a new iv and wants to wait until later to try.
--- NOTE | 2023-04-09 17:51 | PC.NURSE ---
pt. made aware two of his bed are covered by his insurance and the rutledge will be 1.91l The other 2 medicines aren't covered. He still wishes to wait until later to try and start another iv.
--- NOTE | 2023-04-09 19:15 | CA_ITS ---
FINAL REPORT TECHNIQUE: Grayscale, color Doppler and duplex Doppler ultrasound of the kidneys, aorta and renal arteries was performed. Multiple velocities were measured. CLINICAL HISTORY: CKD, 140/73-HTN, COPD, CHF, DM, HLD COMPARISON: None FINDINGS: Aorta velocity: 85 cm/sec Right kidney: 10.6 cm. No evidence of hydronephrosis or mass. Right intrarenal RI: 0.74-0.84 Right renal artery velocity: 116 cm/sec. Right RAR (Renal artery-Aortic Ratio): 1.36 Left Kidney: 11.0 cm. No evidence of hydronephrosis or mass. Left intrarenal RI: 0.77-0.79 Left renal artery velocity: 145 cm/sec. Left RAR (Renal Artery-Aortic Ratio): 1.70 IMPRESSION: No evidence of significant renal artery stenosis. CT angiogram or postcontrast MR angiogram would be more sensitive for evaluation of possible renal artery stenosis. Reviewed, Interpreted and Dictated by Marco Antonio Matt III, MD Transcribed by Regina Neely Authenticated and [facility]
[2023-04-09] MEDS: ATORVASTATIN 40MG TABLET 40 MG PO (21:10)
[2023-04-09] MEDS: INSULIN GLARGINE 100 UNITS/ML 3ML FLEXPEN 25 UNIT SQ (21:51)
[2023-04-10 02:36] LABS: POC Glucose,Bedside 199 (70-110)
--- NOTE | 2023-04-10 03:25 | PC.NURSE ---
Pt A&Ox4 and currently on 1L of O2 and sating in the high 90s. Pt removed telemetry and states that he dose not need it. attempts made to put leads back on are not successful. Nurse from previous shift reported pt had no IV and refused to allow staff to access another, multiple attempts have been made this shift to start and IV on pt, pt continues to refuse IV. Pt required 5 units of insulin and also was given long acting insulin as well. Pt denies needs and pain at this time.
[2023-04-10 03:59] VITALS: BP 137/82; PULSE 76; RESP 18; TEMP 36.8; O2SAT 99; BMI 27.3
[2023-04-10 05:07] LABS: POC Glucose,Bedside 79 (70-110)
--- NOTE | 2023-04-10 06:49 | PC.NURSE ---
Pt refused Morning labs despite staff x 2 attempts
--- NOTE | 2023-04-10 07:49 | P.DS_ITS ---
General Admission date:: 04/06/23 Discharge date: 04/10/23 HPI HPI HPI: Patient is a 57-year-old male from [facility] with a history of COPD, coronary artery disease, hypertension, hyperlipidemia, diabetes mellitus, congestive heart failure, former smoker (quit about 1 month ago), who had presented to [facility] this week with CHF exacerbation. He was diuresed and discharged. After about 12 hours post discharge he had extreme shortness of breath. He presented to the emergency department at [facility] with respiratory distress requiring CPAP for oxygenation. He was administered DuoNebs, intravenous diuretic, Solu-Medrol and had some improvement in his symptoms. He never had any chest pain. Of note, patient had been worked up recently at [facility] for evaluation of troponins. Exact details unknown. Emergency department evaluation and [facility] revealed elevated troponins. He was therefore transferred to [facility] for further evaluation of possible non-STEMI as [facility] was on diversion. Patient was accepted by Dr. Mcfadden for transfer and was admitted to the hospitalist service a couple of days ago. Upon admission he had a hemoglobin of 10.3 with hematocrit of 31%. This has decreased to 9.4 and 28.3%. He has a BUN of 76 with a creatinine of 2.9. According to the record, prior outpatient lab from September 2022 revealed hemoglobin 13.4 with hematocrit of 40.9%. He states that he did have a colonoscopy years ago . Denies any history of ulcer disease. Denies any symptoms of hematemesis or melena. Hospital Course Hospital Course Hospital Course: 57-year-old male with peripheral artery disease, diabetes, heart failure with reduced ejection fraction. Admitted for CHF exacerbation and NSTEMI. Cardiology consulted, appreciate their recommendations. Patient underwent left heart cath, received 3 stents to his LAD. Stable on room air during the day. Meeting criteria for discharge home. Problems addressed as follows: Acute on chronic heart failure with reduced ejection fraction NSTEMI Hypertension Hyperlipidemia -Cardiology consulted, appreciate their recommendations. Patient underwent left heart cath 04/08/2023, 3 contiguous stents to the LAD. Tolerated procedure well. Continue dual antiplatelet therapy with Plavix 75 mg daily and aspirin 81 mg daily. Echocardiogram with a EF of 30%. LifeVest provided on 04/09. Patient's blood pressure has remained stable. Increased his carvedilol to 12.5 mg twice daily. Continue hydralazine and isosorbide. Continue Lasix and Lipitor. Medications provided prior to discharge home. Plan for close follow-up with cardiology. Renal artery duplex obtained during admission, no significant stenosis noted. KOKO versus CKD -Creatinine remained elevated during admission. Unclear patient's baseline however appears to have chronic kidney disease. Creatinine stable at 2.4 with BUN of 62 on day before discharge. Creatinine remained between 2.2 and 2.5 during admission. Will need repeat labs at follow-up with CBC, CMP, magnesium. Consider NARESH ARB/Entresto if blood pressure improves after discharge home. Attempts previously to refer patient to nephrology, patient has unfortunately not kept these appointments. Iron deficient anemia, most consistent with secondary chronic kidney disease -Iron studies show low levels in the setting of CKD. Hemoglobin 9.2 today. Stool occult negative. No bleeding while on heparin drip. No signs of GI bleed at this time. Surgery was consulted, recommended not pursuing EGD as it would be of low yield at this time. Would benefit from consideration as an outpatient for upper and lower scopes. Anemia presumed related to his CKD at this time Diabetes: Basal insulin glargine 25 units nightly. Continue with sliding scale insulin ACHS. A1c elevated at 7.5. Resume home regimen at discharge Spent 30 minutes in discharge counseling, documentation, chart review, and direct care with patient. Exam Data for Last 24 hours Vital signs and Labs for Last 24 Hours: Temp Pulse Resp BP Pulse Ox O2 Del Method O2 Flow Rate 98.1 F 77 18 155/87 H 97 Nasal Cannula 2 04/09/23 08:00 04/09/23 08:00 04/09/23 08:00 04/09/23 08:00 04/09/23 08:00 04/09/23 09:53 04/09/23 09:53 Laboratory Results - last 24 hr 04/08/23 11:13: POC Glucose 97 04/08/23 11:15: APTT 56.7 H* 04/08/23 16:59: Activated Clotting Time 292 H* 04/08/23 17:08: POC Glucose 81 04/08/23 20:19: Stool Occult Blood Negative 04/08/23 20:20: POC Glucose 199 H 04/08/23 22:15: APTT 26.1 04/09/23 04:59: POC Glucose 158 H 04/09/23 06:47: WBC 5.1, RBC 3.45 L, Hgb 10.2 L, Hct 30.7 L, MCV 88.9, MCH 29.6, MCHC 33.3, RDW 14.9, Plt Count 171, MPV 10.0, Neut % (Auto) 66.1, Lymph % (Auto) 24.9, Fleming % (Auto) 6.9, Eos % (Auto) 1.8, Baso % (Auto) 0.3, Neut # (Auto) 3.4, Lymph # (Auto) 1.3, Fleming # (Auto) 0.4, Eos # (Auto) 0.1, Baso # (Auto) 0.0, Sodium 139, Potassium 4.7, Chloride 108 H, Carbon Dioxide 25, Anion Gap 10.7, BUN 62 H, Creatinine 2.40 H, Estimated Creat Clear 45, Estimated GFR 28 L, Est GFR ( Amer) 34 L D, Glucose 131 H, Calcium 8.3 L, Magnesium 2.3, Total Bilirubin 0.6, AST 70 H D, ALT 25, Alkaline Phosphatase 123, Total Protein 5.8 L , Albumin 3.1 L, Globulin 2.7, Albumin/Globulin Ratio 1.1 04/09/23 10:02: POC Glucose 115 H I & O for Last 24 hours: Intake & Output 04/06/23 04/07/23 04/08/23 04/09/23 23:59 23:59 23:59 23:59 Intake Total 1104 / 1813 1549 / 2197 1188 / 1188 210 / 210 Output Total 2275 / 2375 1225 / 1225 1675 / 1675 1450 / 1450 Balance -1171 / -562 324 / 972 -487 / -487 -1240 / -1240 Weight 94.8 kg 91.217 kg 91.2 kg 91.716 kg Constitutional Constitutional: no acute distress, average body habitus, chronically ill appeari ng and cooperative *Routine HEENT Exam Head: Present normocephalic Eye: Present EOMI and PERRL ENT: Present mucous membranes moist *Routine Neck Exam Neck: Present supple; Absent lymphadenopathy *Routine Respiratory Exam Respiratory: Present CTA bilaterally; Absent rhonchi, wheezes or crackles *Routine Cardiovascular Exam Cardiovascular: Present RRR *Routine Abdominal Exam Abdominal: Present soft and normoactive bowel sounds; Absent tenderness *Routine Extremities Exam Extremities: Present edema (Trace in right lower extremity); Absent cyanosis or clubbing Comments: Left AKA; thenar wasting bilaterally *Routine Skin Exam Skin: Present warm; Absent rash *Routine Neurological Exam Neurological: Present alert, oriented X3 and moving all extremities; Absent altered mental status Results Data Completed and Pending Labs on day of discharge: Labs from last 24 hours 04/09/23 04/09/23 04/09/23 10:02 06:47 04:59 WBC 5.1 RBC 3.45 L Hgb 10.2 L Hct 30.7 L MCV 88.9 MCH 29.6 MCHC 33.3 RDW 14.9 Plt Count 171 MPV 10.0 Neut % (Auto) 66.1 Lymph % (Auto) 24.9 Fleming % (Auto) 6.9 Eos % (Auto) 1.8 Baso % (Auto) 0.3 Neut # (Auto) 3.4 Lymph # (Auto) 1.3 Fleming # (Auto) 0.4 Eos # (Auto) 0.1 Baso # (Auto) 0.0 APTT Activated Clotting Time Sodium 139 Potassium 4.7 Chloride 108 H Carbon Dioxide 25 Anion Gap 10.7 BUN 62 H Creatinine 2.40 H Estimated Creat Clear 45 Estimated GFR 28 L Est GFR ( Amer) 34 L D Glucose 131 H POC Glucose 115 H 158 H Calcium 8.3 L Magnesium 2.3 Total Bilirubin 0.6 AST 70 H D ALT 25 Alkaline Phosphatase 123 Total Protein 5.8 L Albumin 3.1 L Globulin 2.7 Albumin/Globulin Ratio 1.1 Stool Occult Blood 04/08/23 04/08/23 04/08/23 22:15 20:20 20:19 WBC RBC Hgb Hct MCV MCH MCHC RDW Plt Count MPV Neut % (Auto) Lymph % (Auto) Fleming % (Auto) Eos % (Auto) Baso % (Auto) Neut # (Auto) Lymph # (Auto) Fleming # (Auto) Eos # (Auto) Baso # (Auto) APTT 26.1 Activated Clotting Time Sodium Potassium Chloride Carbon Dioxide Anion Gap BUN Creatinine Estimated Creat Clear Estimated GFR Est GFR ( Amer) Glucose POC Glucose 199 H Calcium Magnesium Total Bilirubin AST ALT Alkaline Phosphatase Total Protein Albumin Globulin Albumin/Globulin Ratio Stool Occult Blood Negative 04/08/23 04/08/23 04/08/23 17:08 16:59 11:15 WBC RBC Hgb Hct MCV MCH MCHC RDW Plt Count MPV Neut % (Auto) Lymph % (Auto) Fleming % (Auto) Eos % (Auto) Baso % (Auto) Neut # (Auto) Lymph # (Auto) Fleming # (Auto) Eos # (Auto) Baso # (Auto) APTT 56.7 H* Activated Clotting Time 292 H* Sodium Potassium Chloride Carbon Dioxide Anion Gap BUN Creatinine Estimated Creat Clear Estimated GFR Est GFR ( Amer) Glucose POC Glucose 81 Calcium Magnesium Total Bilirubin AST ALT Alkaline Phosphatase Total Protein Albumin Globulin Albumin/Globulin Ratio Stool Occult Blood 04/08/23 11:13 WBC RBC Hgb Hct MCV MCH MCHC RDW Plt Count MPV Neut % (Auto) Lymph % (Auto) Fleming % (Auto) Eos % (Auto) Baso % (Auto) Neut # (Auto) Lymph # (Auto) Fleming # (Auto) Eos # (Auto) Baso # (Auto) APTT Activated Clotting Time Sodium Potassium Chloride Carbon Dioxide Anion Gap BUN Creatinine Estimated Creat Clear Estimated GFR Est GFR ( Amer) Glucose POC Glucose 97 Calcium Magnesium Total Bilirubin AST ALT Alkaline Phosphatase Total Protein Albumin Globulin Albumin/Globulin Ratio Stool Occult Blood DS: Diagnosis Discharge Diagnosis (1) Acute exacerbation of CHF (congestive heart failure): Status: Acute Code(s): I50.9 - Heart failure, unspecified Qualifiers: Heart failure type: unspecified Qualified Code(s): I50.9 - Heart failure, unspecified (2) Non-STEMI (non-ST elevated myocardial infarction): Status: Acute Code(s): I21.4 - Non-ST elevation (NSTEMI) myocardial infarction (3) COPD (chronic obstructive pulmonary disease): Status: Acute Code(s): J44.9 - Chronic obstructive pulmonary disease, unspecified Qualifiers: COPD type: chronic bronchitis Chronic bronchitis type: unspecified Qualified Code(s): J42 - Unspecified chronic bronchitis (4) Hypertension: Status: Acute Code(s): I10 - Essential (primary) hypertension Qualifiers: Hypertension type: primary hypertension Qualified Code(s): I10 - Essential (primary) hypertension (5) Diabetes mellitus: Status: Acute Code(s): E11.9 - Type 2 diabetes mellitus without complications Qualifiers: Diabetes mellitus complication status: without complication Diabetes mellitus half-way insulin use: with intermediate project manager use Diabetes mellitus type: type 2 Qualified Code(s): E11.9 - Type 2 diabetes mellitus without complications; Z79.4 - intermediate project manager (current) use of insulin (6) HFrEF (heart failure with reduced ejection fraction): Status: Acute Code(s): I50.20 - Unspecified systolic (congestive) heart failure (7) Acute blood loss anemia: Status: Acute Code(s): D62 - Acute posthemorrhagic anemia (8) Peripheral arterial disease: Status: Acute Code(s): I73.9 - Peripheral vascular disease, unspecified Meds Home Medications and Allergies Home Medications Medication Instructions Recorded Confirmed Type gabapentin 600 mg tablet 600 mg PO TID 09/06/17 04/06/23 History albuterol sulfate 90 mcg/actuation 1 puff inhalation DAILYP PRN 04/06/23 04/06/23 History aerosol inhaler Shortness Of Breath Or Wheezing dapagliflozin propanediol 10 mg 10 mg PO DAILY 04/06/23 04/06/23 History tablet (Farxiga) entecavir 0.5 mg tablet 0.5 mg PO DIRECTED 04/06/23 04/06/23 History furosemide 40 mg tablet 40 mg PO DAILY 04/06/23 04/06/23 History hydralazine 50 mg tablet 50 mg PO TID 04/06/23 04/06/23 History hydrochlorothiazide 25 mg tablet 25 mg PO DAILY 04/06/23 04/06/23 History insulin aspart U-100 100 unit/mL 5 unit SQ TIDWMEAL 04/06/23 04/06/23 History (3 mL) subcutaneous pen (Novolog FlexPen U-100 Insulin aspart) insulin detemir U-100 100 unit/mL 13 unit SQ HS 04/06/23 04/06/23 History (3 mL) subcutaneous pen (Levemir FlexPen) isosorbide mononitrate 60 mg 60 mg PO DAILY 04/06/23 04/06/23 History tablet,extended release 24 hr loperamide 2 mg capsule 2 mg PO DAILYP PRN Diarrhea 04/06/23 04/06/23 History nitroglycerin 0.4 mg sublingual 0.4 mg sublingual Q5M PRN Chest 04/06/23 04/06/23 History tablet Pain umeclidinium 62.5 mcg/actuation 1 inh inhalation DAILY 04/06/23 04/06/23 History blister powder for inhalation (Incruse Ellipta) aspirin 81 mg chewable tablet 81 mg PO DAILY 30 days #30 tabs 04/09/23 Rx atorvastatin 80 mg tablet 80 mg PO DAILY 30 days #30 tabs 04/09/23 Rx carvedilol 12.5 mg tablet 12.5 mg PO BID 30 days #60 tabs 04/09/23 Rx clopidogrel 75 mg tablet 75 mg PO DAILY 30 days #30 tabs 04/09/23 Rx New Prescriptions to Start Prescriptions: alycia Duke,Gurinder atorvastatin Leilani,Gurinder carvedilol Leilani,Gurinder clopidogrel Leilani,Gurinder Allergies Allergy/AdvReac Type Severity Reaction Status Date / Time No Known Allergies Allergy Unverified 03/16/17 14:11 Discharge Plan Disposition Patient Disposition: Home Health Service Condition: Fair Discharge Order Discharge Orders: Discharge Order (Routine); Ordered 04/10/23 Ordered By: Gurinder Duke Follow up Plan Follow up with: Robert Mcfadden MD [Staff Physician] - 04/15/23 1:00 pm Prescriptions/Medication Reconciliation: New clopidogrel 75 mg Tablet 75 mg PO DAILY 30 Days Qty: 30 0RF Continued gabapentin 600 MG tablet 600 mg PO TID furosemide 40 mg tablet 40 mg PO DAILY loperamide 2 mg capsule 2 mg PO DAILYP PRN (Reason: Diarrhea) isosorbide mononitrate 60 mg tablet extended release 24 hr 60 mg PO DAILY nitroglycerin 0.4 mg Tablet, Sublingual 0.4 mg SUBLINGUAL Q5M PRN (Reason: Chest Pain) Rx Instructions: Do not exceed 3 doses per episode hydralazine 50 mg tablet 50 mg PO TID hydrochlorothiazide 25 mg tablet 25 mg PO DAILY albuterol sulfate 90 mcg/actuation HFA aerosol inhaler 1 puff INHALATION DAILYP PRN (Reason: Shortness Of Breath Or Wheezing) insulin aspart U-100 [Novolog FlexPen U-100 Insulin] 100 unit/mL (3 mL) insulin pen 5 unit SQ TIDWMEAL entecavir 0.5 mg tablet 0.5 mg PO DIRECTED Rx Instructions: Take one tablet every 3 days Levemir FlexPen 100 unit/mL (3 mL) insulin pen 13 unit SQ HS Farxiga 10 mg tablet 10 mg PO DAILY Incruse Ellipta 62.5 mcg/actuation blister with device 1 inh INHALATION DAILY atorvastatin 80 MG tablet 80 mg PO DAILY 30 Days Qty: 30 0RF carvedilol 12.5 mg tablet 12.5 mg PO BID 30 Days Qty: 60 0RF aspirin 81 mg Tablet,Chewable 81 mg PO DAILY 30 Days Qty: 30 0RF Problem Reconciliation Problems Reviewed?: Yes Patient Discharge Instructions ACTIVITY: Continue current activity DIET: continue same diet Patient Instructions: DI for Heart Attack, DI for Heart Failure, DI for Cardiac Catheterization, DI for Surgical Site Infection Providers Primary Care Provider: Erik Hurley Admit Provider: Nidia Desai Attending Provider: Nidia Desai
[2023-04-10 08:00] VITALS: BP 165/85; PULSE 83; RESP 20; TEMP 36.9; O2SAT 98
--- NOTE | 2023-04-10 08:32 | PC.NURSE ---
RA O2 sat obtained. Pt is 96%.
[2023-04-10 08:33] VITALS: O2SAT 96
[2023-04-10] MEDS: ASPIRIN 81MG CHEWABLE TABLET 81 MG PO (09:25)
[2023-04-10] MEDS: CARVEDILOL 12.5MG TABLET 12.5 MG PO (09:26)
[2023-04-10] MEDS: FUROSEMIDE 40 MG TABLET PO (09:26)
[2023-04-10] MEDS: CLOPIDOGREL 75MG TAB 75 MG PO (09:26)
[2023-04-10] MEDS: DAPAGLIFLOZIN PROPANEDIOL 10 MG TABLET PO (09:26)
[2023-04-10] MEDS: CALCIUM POLYCARBOPHIL 625MG TAB 1250 MG PO (09:26)
[2023-04-10] MEDS: ISOSORBIDE MONO 60MG TAB.ER.24H 60 MG PO (09:27)
[2023-04-10] MEDS: GABAPENTIN 300MG CAPSULE 300 MG PO (09:27)
[2023-04-10] MEDS: HYDRALAZINE HCL 25MG TABLET 50 MG PO (09:27)
--- NOTE | 2023-04-12 15:00 | CARE MANAGER ---
Patient back in hospital during time for follow up call.
== END 2023-04-10 09:41 | disposition home or self-care (01) | DRG 321 ==
PROVIDERS: Internal Medicine; Internal Medicine Adolescent Medicine; Nurse Practitioner Acute Care; Nurse Practitioner Family; Surgery; Admitting Provider Internal Medicine; PCP Family Medicine; Visit Provider Internal Medicine
PROC: 027036Z Dilation of Coronary Artery, One Artery with Three Drug-eluting Intraluminal Devices, Percutaneous Approach (ICD-10-PCS; principal; 2023-04-08 14:45)
DX: I21.4 Non-ST elevation (NSTEMI) myocardial infarction (principal); I50.23 Acute on chronic systolic (congestive) heart failure; D62 Acute posthemorrhagic anemia; N17.9 Acute kidney failure, unspecified; I25.119 Atherosclerotic heart disease of native coronary artery with unspecified angina pectoris; I11.0 Hypertensive heart disease with heart failure; I73.9 Peripheral vascular disease, unspecified; J44.9 Chronic obstructive pulmonary disease, unspecified; D63.1 Anemia in chronic kidney disease
CPT/HCPCS: 36415; 71045; 80048; 80053; 80061; 82272; 82728; 82962; 83036; 83540; 83550; 83605; 83735; 83880; 84145; 84484; 85007; 85025; 85347; 85610; 85730; 92928; 93005; 93306; 93454; 93976; 99152; 99153; C1725; C1769; C1874; C1876; C9600; G0328; J1644; Q9967

== ENCOUNTER 2023-04-11 11:04 | Observation (INO) | payer MEDICARE, MEDICAID, SELFPAY ==
[2023-04-11] VITALS (20 sets, daily range): BP systolic 121–159; BP diastolic 63–126; PULSE 63–83; RESP 15–26; TEMP 36.5–37.2; O2SAT 95–100; BMI 27.1; BMI 26.9
--- NOTE | 2023-04-11 11:18 | ECG_ITS ---
APPROVED REPORT Exam: Resting ECG HR:76 bpm ECG Measurements Heart Rate 76 AXES UT 152 P 56 QRSd 113 QRS -25 QT 417 T 144 QTc 447 Conclusion SINUS RHYTHM BORDERLINE LEFT AXIS DEVIATION [QRS AXIS < -20] MODERATE INTRAVENTRICULAR CONDUCTION DELAY [110+ ms QRS DURATION] ST DEVIATION AND MODERATE T-WAVE ABNORMALITY, CONSIDER LATERAL ISCHEMIA [-0.1+ mV T-WAVE IN I/aVL/V5/V6] ABNORMAL ECG UNCONFIRMED REPORT Electronically signed by : Ajay Ware MD 04/11/2023 15:10:05
--- NOTE | 2023-04-11 11:22 | XR_ITS ---
PROCEDURE INFORMATION: Exam: XR Chest Exam date and time: 04/11/2023 11:25 AM Age: 57 years old Clinical indication: Dyspnea TECHNIQUE: Imaging protocol: Radiologic exam of the chest. Views: 1 view. COMPARISON: CR XR CHEST PORTABLE 04/06/2023 4:55 AM FINDINGS: Lungs: Bibasilar atelectasis versus parenchymal scarring. Bilateral regions of bronchiectasis with peribronchial thickening. Mild prominence of the interstitial markings. Pleural spaces: Unremarkable. No pleural effusion. No pneumothorax. Heart/Mediastinum: Unremarkable. No cardiomegaly. Bones/joints: Unremarkable. IMPRESSION: Findings compatible with bronchiectasis. Superimposed findings suggesting bronchitis and possible developing interstitial pneumonitis.
--- NOTE | 2023-04-11 11:26 | ED_ITS ---
Discharge Plan Disposition Patient Disposition: Admitted Prescriptions Prescriptions: No Action gabapentin 600 MG tablet 600 mg PO TID furosemide 40 mg tablet 40 mg PO DAILY loperamide 2 mg capsule 2 mg PO DAILYP PRN (Reason: Diarrhea) isosorbide mononitrate 60 mg tablet extended release 24 hr 60 mg PO DAILY nitroglycerin 0.4 mg Tablet, Sublingual 0.4 mg SUBLINGUAL Q5M PRN (Reason: Chest Pain) Rx Instructions: Do not exceed 3 doses per episode hydralazine 50 mg tablet 50 mg PO TID hydrochlorothiazide 25 mg tablet 25 mg PO DAILY albuterol sulfate 90 mcg/actuation HFA aerosol inhaler 1 puff INHALATION DAILYP PRN (Reason: Shortness Of Breath Or Wheezing) insulin aspart U-100 [Novolog FlexPen U-100 Insulin] 100 unit/mL (3 mL) insulin pen 5 unit SQ TIDWMEAL entecavir 0.5 mg tablet 0.5 mg PO DIRECTED Rx Instructions: Take one tablet every 3 days Levemir FlexPen 100 unit/mL (3 mL) insulin pen 13 unit SQ HS Farxiga 10 mg tablet 10 mg PO DAILY Incruse Ellipta 62.5 mcg/actuation blister with device 1 inh INHALATION DAILY clopidogrel 75 mg Tablet 75 mg PO DAILY 30 Days Qty: 30 0RF atorvastatin 80 MG tablet 80 mg PO DAILY 30 Days Qty: 30 0RF carvedilol 12.5 mg tablet 12.5 mg PO BID 30 Days Qty: 60 0RF aspirin 81 mg Tablet,Chewable 81 mg PO DAILY 30 Days Qty: 30 0RF Referrals Follow up/Referrals: Provider,Referral, MD [Primary Care Provider] - See instructions Clinical Impressions Clinical Impression: Flash pulmonary edema, Myocardial injury Discharge ED Provider: Rodrigo Kaiser HPI General Chief Complaint: Shortness of Breath/Dyspnea Stated Complaint: Shortness of breath Time Seen by Provider: 04/11/23 11:06 Mode of Arrival: EMS Source of Information: Patient and EMS Limitations: No Limitations Description of Symptoms (Recalled from ER Triage Doc. by RN): [facility] brought patient in with increased SOA. Patient states he just had stents placed at [facility] last week. Patient states he is always short of air but seems to be increased more today. History of Present Illness HPI narrative: Patient is a 57-year-old male with a known history of heart failure with reduced ejection fraction as well as COPD presents today with shortness of breath. Was recently admitted in the hospital with PCI intervention from cardiology with an NSTEMI. States he has not had any significant chest pain since that time. States that his shortness of breath began about an hour ago relatively suddenly. Denies any significant cough fevers sputum production or wheezing. Denies any significant increase in his weight or lower extremity edema. Related Data Home Medications Medication Instructions Recorded Confirmed gabapentin 600 mg tablet 600 mg PO TID 09/06/17 04/06/23 albuterol sulfate 90 mcg/actuation 1 puff inhalation DAILYP PRN 04/06/23 04/06/23 aerosol inhaler Shortness Of Breath Or Wheezing dapagliflozin propanediol 10 mg 10 mg PO DAILY 04/06/23 04/06/23 tablet (Farxiga) entecavir 0.5 mg tablet 0.5 mg PO DIRECTED 04/06/23 04/06/23 furosemide 40 mg tablet 40 mg PO DAILY 04/06/23 04/06/23 hydralazine 50 mg tablet 50 mg PO TID 04/06/23 04/06/23 hydrochlorothiazide 25 mg tablet 25 mg PO DAILY 04/06/23 04/06/23 insulin aspart U-100 100 unit/mL 5 unit SQ TIDWMEAL 04/06/23 04/06/23 (3 mL) subcutaneous pen (Novolog FlexPen U-100 Insulin aspart) insulin detemir U-100 100 unit/mL 13 unit SQ HS 04/06/23 04/06/23 (3 mL) subcutaneous pen (Levemir FlexPen) isosorbide mononitrate 60 mg 60 mg PO DAILY 04/06/23 04/06/23 tablet,extended release 24 hr loperamide 2 mg capsule 2 mg PO DAILYP PRN Diarrhea 04/06/23 04/06/23 nitroglycerin 0.4 mg sublingual 0.4 mg sublingual Q5M PRN Chest 04/06/23 04/06/23 tablet Pain umeclidinium 62.5 mcg/actuation 1 inh inhalation DAILY 04/06/23 04/06/23 blister powder for inhalation (Incruse Ellipta) Previous Rx's Medication Instructions Recorded aspirin 81 mg chewable tablet 81 mg PO DAILY 30 days #30 tabs 04/09/23 atorvastatin 80 mg tablet 80 mg PO DAILY 30 days #30 tabs 04/09/23 carvedilol 12.5 mg tablet 12.5 mg PO BID 30 days #60 tabs 04/09/23 clopidogrel 75 mg tablet 75 mg PO DAILY 30 days #30 tabs 04/09/23 Allergies Allergy/AdvReac Type Severity Reaction Status Date / Time No Known Allergies Allergy Unverified 03/16/17 14:11 [facility] Disclaimer: The information contained in this section may have been updated after the patient was seen, as this information can be updated by other users. 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 (Updated 04/11/23 @ 12:42 by Baljeet Kaiser MD) Above knee amputation of left lower extremity Acute blood loss anemia Asthma Atypical angina CAD in [place] artery Congestive heart failure COPD (chronic obstructive pulmonary disease) Diabetes mellitus Diabetes mellitus, type 2 HFrEF (heart failure with reduced ejection fraction) History of left heart catheterization (LHC) Hyperlipidemia Hypertension Ischemic cardiomyopathy LV dysfunction Peripheral arterial disease Stenosis of carotid artery Thoracic aneurysm without mention of rupture Surgical History (Updated 04/09/23 @ 13:10 by Enedelia Ron APRN) History of cholecystectomy Status post above-knee amputation of left lower extremity Stented coronary artery Family History (Updated 04/06/23 @ 05:28 by MARGE Winchester) Other Family history of cancer Social History (Updated 04/06/23 @ 05:28 by MARGE Winchester) Smoking Status: Former smoker tobacco type: cigarettes packs per day: 2 alcohol intake: never current occupational status: employed and disabled Travel in the last 8 weeks: None housing: house current occupational exposures/hazards: No ROS Obtained: Yes All systems reviewed & no additional complaints except as documented Physical Exam General General appearance: alert Respiratory Respiratory exam: Present other (No significant respiratory distress mildly tachypneic with diffuse coarse breath sounds bibasilar crackles) Cardiovascular Cardiovascular exam: Present regular rate Neurological Exam Neurological exam: Present alert HEART Score HEART Score HEART Score assessment performed?: No Procedures Miscellaneous Procedure Procedure Performed: Limited cardiac ultrasound Indication: Dyspnea Identified structures: The heart was visualized in the parasternal long axis, parastenal short axis, apical four chamber and subxyphiod views. The IVC was visualized in the short axis and long axis at its entry into the right atrium. Findings: LVEF moderately depressed consistent with recent echo there is apical akinesis no significant or severe right heart strain no pericardial effusion IVC is less than 2 cm with normal respirophasic variation Impression: Moderately depressed LVEF otherwise unremarkable emergency bedside cardiac ultrasound Images were saved to permanent archive The study was technically adequate CPT: 43705-59 This study was performed by me, and I personally interpreted all images/videos. Based on my clinical judgement, these images were adequate and did not necessitate further imaging. Limited lung ultrasound A focused ultrasound exam of the pleural spaces was performed to evaluate for pneumothorax, pulmonary edema, pleural effusion and/or consolidation. The ultrasound was performed with the following indications, as noted in the H&P: Dyspnea Identified structures: [RIGHT and/or LEFT] thoracic cavities were examined. Findings: Diffuse B-lines present in all lung pandey on the right and left pleural effusions noted on the right and left Impression: Diffuse B-lines on the right and left with small pleural effusions consistent with pulmonary edema from cardiogenic cause Images are saved to permanent archive The study was technically adequate CPT 73366-13 This study was performed by me, and I personally interpreted all images/videos. Based on my clinical judgement, these images were adequate and did not necessitate further imaging. Critical Care Critical Care Time Critical Care Time: Yes Attestation: On 04/11/23, the high probability of a clinically significant, sudden or life threatening deterioration of the following system(s) required my full and direct attention, intervention and personal management. The time I documented below is in addition to time spent performing reported procedures but includes the following listed in this critical care notation. Total Time Total Critical Care Time: 35 Medical Decision Making Pedrito Inquiry Pt receiving controlled substance: No Vital Signs Vital Signs: 04/11/23 11:04 04/11/23 11:29 04/11/23 11:30 Temperature 98.7 F Temperature Source Oral Pulse Rate 79 Pulse Rate [Right Brachial] 83 Respiratory Rate 26 H Blood Pressure 157/88 H 148/126 H Blood Pressure [Right Arm] 159/97 H Blood Pressure Mean 132 Blood Pressure Mean [Right Arm] 117 Blood Pressure Source [Right Arm] Automatic Cuff Blood Pressure Position [Right Arm] Supine 02 Sat by Pulse Oximetry 95 96 Oxygen Delivery Method Nasal Cannula Oxygen Flow Rate (LPM) 3 04/11/23 11:40 Temperature Temperature Source Pulse Rate Pulse Rate [Right Brachial] Respiratory Rate Blood Pressure 154/88 H Blood Pressure [Right Arm] Blood Pressure Mean 125 Blood Pressure Mean [Right Arm] Blood Pressure Source [Right Arm] Blood Pressure Position [Right Arm] 02 Sat by Pulse Oximetry Oxygen Delivery Method Oxygen Flow Rate (LPM) Lab Data Lab results reviewed: Yes I reviewed the patient's lab results. Labs: Lab Results 04/11/23 11:11: WBC 6.2, RBC 3.78 L, Hgb 11.3 L, Hct 33.5 L, MCV 88.5, MCH 29.9, MCHC 33.7, RDW 14.9, Plt Count 200, MPV 10.0, Neut % (Auto) 67.9, Lymph % (Auto) 24.7, [place] % (Auto) 6.0, Eos % (Auto) 1.2, Baso % (Auto) 0.3, Neut # (Auto) 4.2, Lymph # (Auto) 1.5, [place] # (Auto) 0.4, Eos # (Auto) 0.1, Baso # (Auto) 0.0, S odium 140, Potassium 5.1, Chloride 108 H, Carbon Dioxide 25, Anion Gap 12.1, BUN 48 H, Creatinine 2.50 H, Estimated Creat Clear 43, Estimated GFR 27 L, Est GFR ( Amer) 33 L, Glucose 127 H, Calcium 8.8, Total Bilirubin 1.7 H, AST 70 H , ALT 28, Alkaline Phosphatase 155 H, Troponin I 10.10 H, NT-Pro-B Natriuret Pep 89146 H, Total Protein 6.7, Albumin 3.5, Globulin 3.2, Albumin/Globulin Ratio 1.1 04/11/23 11:11 04/11/23 11:11 Response Orders (Tests/Meds): ED MEDICATIONS Generic Name Dose Route Start Last Admin Trade Name Freq PRN Reason Stop Dose Admin Nitroglycerin/Dextrose 250 mls @ 6 mls/hr 04/11/23 11:30 04/11/23 12:13 Nitroglycerin 50mg/250ml D5w IV 05/11/23 11:29 30 mcg/min .Q24H ARIEL 9 mls/hr Titration Protocol 20 MCG/MIN Discontinued Medications Generic Name Dose Route Start Last Admin Trade Name Freq PRN Reason Stop Dose Admin Furosemide 80 mg 04/11/23 11:24 04/11/23 11:43 Furosemide 40mg/4ml Vial IV 04/11/23 11:25 80 mg ONCE ONE Administration ORDERS Category Date Time Status CXR --portable [XR chest portable] Stat Exams 04/11/23 11:22 Completed POCUS Point of Care (ER Only) Stat Exams 04/11/23 11:09 Taken BNP [Brain Natriuretic Peptide] Stat Lab 04/11/23 11:11 Completed CBC w/Auto Diff [Complete Blood Count Auto Diff] Stat Lab 04/11/23 11:11 Completed CMP [Comprehensive Metabolic Panel] Stat Lab 04/11/23 11:11 Completed Trop I [Troponin I] Stat Lab 04/11/23 11:11 Completed Troponin I Q3H Lab 04/11/23 14:30 Ordered Troponin I Q3H Lab 04/11/23 17:30 Ordered MDM Narrative Medical Decision Narrative: Patient is a 57-year-old male with a history of coronary disease and heart failure with reduced ejection fraction presenting today with acute dyspnea he is mildly hypertensive differential primarily was COPD versus CHF exacerbation. Limited bedside ultrasound was done please see procedure notes. With a moderately depressed LVEF with diffuse pulmonary edema and bilateral pleural effusions this is most consistent with flash pulmonary edema given the sudden onset of this. Will give him nitroglycerin infusion to get his preload down and I do believe he is relatively euvolemic therefore we will also give him a dose of Lasix that is 2 times his oral daily dose at home and will reassess. He does have renal insufficiency and the dose of effective diuretic likely will be very high. If we have a good diuretic response is possible we can get him home otherwise he may need to come in for blood pressure management and titration of his diuretic and further monitoring of his renal function. EKG was performed which I first interpreted which shows a ventricular rate of [address] segment elevations or depressions to suggest acute ischemia some Q waves noted in the anterior leads there is negative deflection lead aVF consistent with left axis deviation overall nonspecific EKG. Reassessment 1243 patient's respiratory status still the same he still feels very dyspneic is mildly tachypneic. Does not have any new oxygen requirement does not have pulmonary edema both on the bedside ultrasound and chest x-ray which was performed I personally interpreted shows interstitial edema. Troponin significantly elevated he had a jailed diagonal on recent cath I discussed the case with Dr. Mcfadden and this is to be expected with that finding. Likely nothing else to do particular in the setting of his renal function without the need for further contrast bolus with a heart cath standpoint. Patient need to be admitted for diuresis and blood pressure management. I spoke with Dr. Duke who agreed to this plan.
--- NOTE | 2023-04-11 11:30 | PC.NURSE ---
RAD at BS
[2023-04-11 11:33] LABS: Basophils % 0.3 % (0.1-2.0); Chloride 108 mmol/L (98-107); Eosinophils # 0.1 K/mm3 (0.0-0.4); Eosinophils % 1.2 % (0.1-12.0); Hematocrit 33.5 % (42.0-52.0); Hemoglobin 11.3 g/dL (14.1-18.0); Lymphocytes # 1.5 K/mm3 (0.7-4.5); Lymphocytes % 24.7 % (10-50); Mean Corpuscular HGB Conc 33.7 g/dL (31.8-35.4); Mean Corpuscular Hemoglobin 29.9 pg (27.0-31.2); Mean Corpuscular Volume 88.5 fl (80-94); Monocytes # 0.4 K/mm3 (0.1-1.0); Neutrophils # 4.2 K/mm3 (1.8-7.8); Neutrophils % 67.9 % (37.0-80.0); Platelet Count 200 K/mm3 (142-424); Potassium 5.1 mmoL/L (3.5-5.1); Red Blood Count 3.78 M/mm3 (4.60-6.20); Red Cell Distribution Width 14.9 % (11.5-17.5); Sodium 140 mmol/L (136-145); White Blood Count 6.2 K/mm3 (4.8-10.8)
[2023-04-11 11:35] LABS: Blood Urea Nitrogen 48 mg/dl (9-20); Creatinine Clearance Estimated 43 mL/min (50-200); Estimated Glomerular Filt Rate 27 ml/min (>60); GFR (African American) 33 ML/MIN (>60)
--- NOTE | 2023-04-11 11:35 | PC.NURSE ---
per wants to titrate Nitro to keep SBP <125. Called Pharmacy to verify new order.
[2023-04-11 11:36] LABS: Alanine Aminotransferase 28 U/L (12-78); Albumin Level 3.5 g/dl (3.5-5.0); Albumin/Globulin Ratio 1.1 (1.1-1.8); Alkaline Phosphatase 155 U/L (38-126); Anion Gap 12.1 mEq/L (5-15); Aspartate Amino Transferase 70 U/L (17-59); Bilirubin,Total 1.7 mg/dl (0.2-1.3); Calcium 8.8 mg/dl (8.4-10.2); Carbon Dioxide 25 mmol/L (22.0-30.0); Globulin 3.2 g/dL (1.3-3.2); Glucose 127 mg/dl (74-100); Total Protein,Serum 6.7 g/dl (6.3-8.2)
[2023-04-11] MEDS: NITROGLYCERIN IN 5 % DEXTROSE 250 ML 6 MG IV (11:38)
--- NOTE | 2023-04-11 11:40 | PC.NURSE ---
Nitro drip started at 11:38, patient is tolerating well.
[2023-04-11] MEDS: FUROSEMIDE 40MG/4ML VIAL 80 MG IV ×2 (11:43→16:45)
--- NOTE | 2023-04-11 11:49 | PC.NURSE ---
CRITICAL TROP 10.10 RECEIVED FROM YOUNG IN LAB. PT NAME AND R/V. DR LIU NOTIFIED. NO NEW ORDERS
[2023-04-11 12:22] LABS: NT Pro Brain Natriuretic Pep. 52000 pg/mL (0-125)
--- NOTE | 2023-04-11 12:42 | PC.NURSE ---
DR LIU AT BEDSIDE TO UPDATE PT
--- NOTE | 2023-04-11 13:17 | PC.NURSE ---
SERVICE OR WORK DISPATCHER NOTIFIED OF ADMISSION
--- NOTE | 2023-04-11 13:28 | EXP.HP ---
History of Present Illness *Admission Date: 04/11/23 *Reason for visit:: dyspnea *History of present illness: Mr. Hurley is a 57-year-old male with past medical history of COPD, CAD, HTN, HLD, DM, CHF, former smoker who presents via [facility] for further evaluation of dyspnea. Patient was just discharged yesterday after being admitted for NSTEMI, dyspnea, volume overload. Found to have worsening acute on chronic heart failure with reduced ejection fraction, status post heart cath on 04/08/2023. Was on room air doing well and had diuresed well during last admission. He presents today to the ER for increased shortness of breath. Normally wears 2 to 3 L of oxygen at night. He was stable on room air during the day for over 48 hours prior to discharge home just yesterday. Has increased shortness of breath necessitated 2 L on transport. States has been compliant with his medications including diuretics. In the ER he denies chest pain, cough, nausea, vomiting. Reports his shortness of breath was relatively sudden an hour or 2 before coming into the hospital. No significant change in weight or increase in lower extremity edema per his report however his right lower leg is more edematous than my exam yesterday. Workup in ER showed elevated BNP greater than 55,000, troponin of 10, chest imaging concern for pulmonary edema. Patient initiated on nitro drip and diuretics. Cardiology consulted and recommended admission. Medicine consulted for admission. After arriving to the floor, patient was weaned to 1 L nasal cannula oxygen due to his saturations of 100% on 2 to 3 L. Does not appear in any respiratory distress. Appears at his baseline chronic status. Of note, patient was very hesitant to go home during last admission and did not want to call family to come pick him up even though he was meeting criteria for discharge home. Concerned about patient's compliance with complex medication regimen. Noted to have stable chronic kidney disease with creatinine greater than 2. Patient appears very anxious. [facility] Disclaimer: The information contained in this section may have been updated after the patient was seen, as this information can be updated by other users. 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 Above knee amputation of left lower extremity Acute blood loss anemia Asthma Atypical angina CAD in [place] artery Congestive heart failure COPD (chronic obstructive pulmonary disease) Diabetes mellitus Diabetes mellitus, type 2 HFrEF (heart failure with reduced ejection fraction) History of left heart catheterization (LHC) Hyperlipidemia Hypertension Ischemic cardiomyopathy LV dysfunction Peripheral arterial disease Stenosis of carotid artery Thoracic aneurysm without mention of rupture Surgical History History of cholecystectomy Status post above-knee amputation of left lower extremity Stented coronary artery Family History Family history of cancer Social History Smoking Status: Former smoker tobacco type: cigarettes packs per day: 2 alcohol intake: never current occupational status: employed and disabled Travel in the last 8 weeks: None housing: house current occupational exposures/hazards: No Review of Systems Review of Systems Review of systems (narrative): 14 point review of systems performed, pertinent positives and negatives as per [facility] Meds Home Medications and Allergies Home Medications Medication Instructions Recorded Confirmed Type gabapentin 600 mg tablet 600 mg PO TID 09/06/17 04/11/23 History albuterol sulfate 90 mcg/actuation 1 puff inhalation DAILYP PRN 04/06/23 04/11/23 History aerosol inhaler Shortness Of Breath Or Wheezing dapagliflozin propanediol 10 mg 10 mg PO DAILY 04/06/23 04/11/23 History tablet (Farxiga) entecavir 0.5 mg tablet 0.5 mg PO DIRECTED 04/06/23 04/11/23 History furosemide 40 mg tablet 40 mg PO DAILY 04/06/23 04/11/23 History hydralazine 50 mg tablet 50 mg PO TID 04/06/23 04/11/23 History hydrochlorothiazide 25 mg tablet 25 mg PO DAILY 04/06/23 04/11/23 History insulin aspart U-100 100 unit/mL 5 unit SQ TIDWMEAL 04/06/23 04/11/23 History (3 mL) subcutaneous pen (Novolog FlexPen U-100 Insulin aspart) insulin detemir U-100 100 unit/mL 13 unit SQ HS 04/06/23 04/11/23 History (3 mL) subcutaneous pen (Levemir FlexPen) isosorbide mononitrate 60 mg 60 mg PO DAILY 04/06/23 04/11/23 History tablet,extended release 24 hr loperamide 2 mg capsule 2 mg PO DAILYP PRN Diarrhea 04/06/23 04/11/23 History nitroglycerin 0.4 mg sublingual 0.4 mg sublingual Q5M PRN Chest 04/06/23 04/11/23 History tablet Pain umeclidinium 62.5 mcg/actuation 1 inh inhalation DAILY 04/06/23 04/11/23 History blister powder for inhalation (Incruse Ellipta) aspirin 81 mg chewable tablet 81 mg PO DAILY 30 days #30 tabs 04/09/23 04/11/23 Rx atorvastatin 80 mg tablet 80 mg PO DAILY 30 days #30 tabs 04/09/23 04/11/23 Rx carvedilol 12.5 mg tablet 12.5 mg PO BID 30 days #60 tabs 04/09/23 04/11/23 Rx clopidogrel 75 mg tablet 75 mg PO DAILY 30 days #30 tabs 04/09/23 04/11/23 Rx New Prescriptions to Start Prescriptions: Allergies Allergy/AdvReac Type Severity Reaction Status Date / Time Penicillins Allergy Verified 04/11/23 14:42 Exam Data for Last 24 hours Vital signs and Labs for Last 24 Hours: Temp Pulse Resp BP Pulse Ox O2 Del Method O2 Flow Rate 98.7 F 69 20 139/81 98 Nasal Cannula 3 04/11/23 11:04 04/11/23 13:16 04/11/23 13:16 04/11/23 13:16 04/11/23 13:16 04/11/23 13:16 04/11/23 13:16 Laboratory Results - last 24 hr 04/11/23 11:11: WBC 6.2, RBC 3.78 L, Hgb 11.3 L, Hct 33.5 L, MCV 88.5, MCH 29.9, MCHC 33.7, RDW 14.9, Plt Count 200, MPV 10.0, Neut % (Auto) 67.9, Lymph % (Auto) 24.7, Cloud % (Auto) 6.0, Eos % (Auto) 1.2, Baso % (Auto) 0.3, Neut # (Auto) 4.2, Lymph # (Auto) 1.5, Cloud # (Auto) 0.4, Eos # (Auto) 0.1, Baso # (Auto) 0.0, Sodium 140, Potassium 5.1, Chloride 108 H, Carbon Dioxide 25, Anion Gap 12.1, BUN 48 H, Creatinine 2.50 H, Estimated Creat Clear 43, Estimated GFR 27 L, Est GFR ( Amer) 33 L, Glucose 127 H, Calcium 8.8, Total Bilirubin 1.7 H, AST 70 H, ALT 28, Alkaline Phosphatase 155 H, Troponin I 10.10 H, NT-Pro-B Natriuret Pep 92559 H, Total Protein 6.7, Albumin 3.5, Globulin 3.2, Albumin/Globulin Ratio 1.1 I & O for Last 24 hours: Intake & Output 04/08/23 04/09/23 04/10/23 04/11/23 23:59 23:59 23:59 23:59 Intake Total 10.25 / 10.25 Output Total 700 / 700 Balance -689.75 / -689.75 Weight 90.718 kg Constitutional Constitutional: no acute distress, average body habitus, chronically ill appearing and cooperative *Routine HEENT Exam Head: Present normocephalic and atraumatic Eye: Present EOMI and PERRL ENT: Present mucous membranes moist *Routine Neck Exam Neck: Present supple, full ROM and JVD *Routine Respiratory Exam Respiratory: Present prolonged expiratory phase, crackles (diffuse in bilateral lung pandey) and normal respiratory effort; Absent rhonchi or wheezes Comments: Requiring 6 L nasal *Routine Cardiovascular Exam Cardiovascular: Present RRR, Normal S1, Normal S2 and murmur *Routine Abdominal Exam Abdominal: Present soft and normoactive bowel sounds *Routine Rectal Exam Rectal:: deferred *Routine Genitalia Exam Genitalia:: deferred *Routine Extremities Exam Extremities: Present edema (2+ to knee on right lower extremity), full ROM, normal capillary refill and amputation (Left AKA) Comments: Thenar wasting bilaterally *Routine Skin Exam Skin: Present intact and dry *Routine Neurological Exam Neurological: Present alert, oriented X3, CN II-XII intact and moving all extremities; Absent altered mental status Routine Psychiatric Exam Psychiatric: Present anxious Assessment and Plan *Assessment and plan (1) Acute exacerbation of CHF (congestive heart failure): Status: Acute Qualifiers: Heart failure type: systolic Qualified Code(s): I50.23 - Acute on chronic systolic (congestive) heart failure Category: Medical Code(s): I50.9 - Heart failure, unspecified (2) HFrEF (heart failure with reduced ejection fraction): Status: Acute Category: Medical Code(s): I50.20 - Unspecified systolic (congestive) heart failure (3) Flash pulmonary edema: Status: Acute Category: Medical Code(s): J81.0 - Acute pulmonary edema (4) COPD (chronic obstructive pulmonary disease): Status: Acute Qualifiers: COPD type: chronic bronchitis Chronic bronchitis type: unspecified Qualified Code(s): J42 - Unspecified chronic bronchitis Category: Medical Code(s): J44.9 - Chronic obstructive pulmonary disease, unspecified (5) Hypertension: Status: Acute Qualifiers: Hypertension type: primary hypertension Qualified Code(s): I10 - Essential (primary) hypertension Category: Medical Code(s): I10 - Essential (primary) hypertension (6) Diabetes mellitus: Status: Acute Qualifiers: Diabetes mellitus type: type 2 Diabetes mellitus prison insulin use: with intermediate manager use Diabetes mellitus complication status: without complication Qualified Code(s): E11.9 - Type 2 diabetes mellitus without complications; Z79.4 - skilled nursing (current) use of insulin Category: Medical Code(s): E11.9 - Type 2 diabetes mellitus without complications (7) Peripheral arterial disease: Status: Acute Category: Medical Code(s): I73.9 - Peripheral vascular disease, unspecified (8) Anemia: Status: Acute Category: Medical Code(s): D64.9 - Anemia, unspecified Plan 57-year-old male with peripheral artery disease, diabetes, heart failure with reduced ejection fraction. Admitted for CHF exacerbation and flash pulmonary edema. Discussed case with ER, request admission for diuresis and cardiology evaluation. Medicine agreed to admit for further management. Problems addressed as follows: Flash pulmonary edema Acute on chronic heart failure with reduced ejection fraction Status post left heart cath with stents placed last week Hypertension Hyperlipidemia -Cardiology consulted, will see patient in the morning - Initial troponin of 10, repeat 8.8. Chest pain-free, in the setting of recent stent, flash pulmonary edema, chronic kidney disease, low concern for new myocardial injury -Continue nitroglycerin drip. Blood pressure goal with systolic less than 130. -Lasix 80 mg IV x 1 in the ER, responding well. Aggressively diuresed, goal -2 L today. Repeat 80 mg IV Lasix x 1 6 hours after first dose -Patient just received 3 contiguous stents to the LAD on 04/08/23, Tolerated procedure well. Continue dual antiplatelet therapy with Plavix 75 mg daily and aspirin 81 mg daily. - Echocardiogram with a EF of 30%. LifeVest to be provided prior to discharge home at last visit -Continuous to -Continue carvedilol 12.5 mg twice daily, hydralazine 3 times daily, isosorbide mononitrate 60 mg daily -Continue Lipitor 40 mg nightly. CKD -Caution with nephrotoxins, monitor creatinine daily. CMP ordered for the morning. -Avoiding NARESH/ARB/Entresto at this time - Creatinine 2.5, BUN 48. Within range of previous eval for patient. Electrolytes stable with potassium 5.1 and chloride 108. Iron deficient anemia, most consistent with secondary chronic kidney disease -Iron studies performed last week or at low levels consistent with anemia of chronic disease. -Clinically no concern for GI bleed. Hemoglobin today of 11, improved from yesterday. Diabetes: Insulin detemir 20 units nightly, Continue with sliding scale insulin ACHS. A1c elevated at 7.5 last week cardiac diet Full Code
--- NOTE | 2023-04-11 13:50 | PC.NURSE ---
Gave report to JAME Black on second floor.
--- NOTE | 2023-04-11 14:26 | PC.NURSE ---
PT ADMITTED TO 217 FROM ED VIA STRETCHER, PT HAS 20G PIV LEFT FOREARM, CALL LIGHT WITHIN REACH
[2023-04-11 15:17] LABS: Troponin I 8.79 ng/ml (0.00-0.034)
[2023-04-11] MEDS: IPRATROPIUM/ALBUTEROL 3 ML NEB IH (15:23)
[2023-04-11 16:31] LABS: POC Glucose,Bedside 197 (70-110)
[2023-04-11] MEDS: humaLOG 100 UNITS/ML 3ML VIAL (SSI) SQ ×2 (16:45→20:52)
[2023-04-11 20:38] LABS: POC Glucose,Bedside 302 (70-110)
[2023-04-11] MEDS: INSULIN DETEMIR 100 UNIT/ML 3ML FLEXPEN 20 UNIT SQ (20:51)
[2023-04-11] MEDS: HYDRALAZINE HCL 25MG TABLET 50 MG PO (20:52)
[2023-04-11] MEDS: CARVEDILOL 12.5MG TABLET 12.5 MG PO (20:52)
[2023-04-11] MEDS: GABAPENTIN 600MG TABLET 600 MG PO (20:52)
[2023-04-12] VITALS (14 sets, daily range): BP systolic 94–132; BP diastolic 39–81; PULSE 58–70; RESP 12–20; TEMP 36.5–36.9; O2SAT 96–100; BMI 26.5
[2023-04-12] MEDS: humaLOG 100 UNITS/ML 3ML VIAL (SSI) SQ ×2 (06:03→11:42)
[2023-04-12 06:08] LABS: POC Glucose,Bedside 255 (70-110)
[2023-04-12 07:26] LABS: Basophils % 0.1 % (0.1-2.0); Eosinophils % 0.1 % (0.1-12.0); Hematocrit 27.7 % (42.0-52.0); Lymphocytes # 0.8 K/mm3 (0.7-4.5); Lymphocytes % 11.1 % (10-50); Mean Corpuscular HGB Conc 34.5 g/dL (31.8-35.4); Mean Corpuscular Hemoglobin 29.8 pg (27.0-31.2); Mean Corpuscular Volume 86.5 fl (80-94); Mean Platelet Volume 9.9 fl (7.4-10.4); Monocytes # 0.3 K/mm3 (0.1-1.0); Monocytes % 4.1 % (1.7-9.3); Neutrophils # 5.8 K/mm3 (1.8-7.8); Neutrophils % 84.6 % (37.0-80.0); Platelet Count 202 K/mm3 (142-424); Red Cell Distribution Width 14.9 % (11.5-17.5); White Blood Count 6.9 K/mm3 (4.8-10.8)
[2023-04-12 07:39] LABS: Alanine Aminotransferase 20 U/L (12-78); Albumin/Globulin Ratio 1.2 (1.1-1.8); Alkaline Phosphatase 107 U/L (38-126); Aspartate Amino Transferase 44 U/L (17-59); Bilirubin,Total 0.8 mg/dl (0.2-1.3); Blood Urea Nitrogen 63 mg/dl (9-20); Carbon Dioxide 28 mmol/L (22.0-30.0); Chloride 104 mmol/L (98-107); Creatinine Clearance Estimated 39 mL/min (50-200); Estimated Glomerular Filt Rate 25 ml/min (>60); GFR (African American) 30 ML/MIN (>60); Globulin 2.6 g/dL (1.3-3.2); Glucose 222 mg/dl (74-100); Magnesium 2.1 mg/dl (1.6-2.3); Sodium 136 mmol/L (136-145); Total Protein,Serum 5.6 g/dl (6.3-8.2)
[2023-04-12] MEDS: NITROGLYCERIN IN 5 % DEXTROSE 250 ML 13.5 MG IV (07:41)
--- NOTE | 2023-04-12 07:54 | HMH.PHAINT1 ---
Pharmacy Intervention Comments: Home med list verified with patient at bedside and with external pharmacy list.
[2023-04-12 08:06] LABS: Hemoglobin 9.5 g/dL (14.1-18.0)
[2023-04-12] MEDS: HYDRALAZINE HCL 25MG TABLET 50 MG PO (09:39)
[2023-04-12] MEDS: hydroCHLOROthiazide 25MG TABLET 25 MG PO (09:39)
[2023-04-12] MEDS: CLOPIDOGREL 75MG TAB 75 MG PO (09:39)
[2023-04-12] MEDS: ASPIRIN 81MG CHEWABLE TABLET 81 MG PO (09:39)
[2023-04-12] MEDS: CARVEDILOL 12.5MG TABLET 12.5 MG PO (09:39)
[2023-04-12] MEDS: ISOSORBIDE MONO 60MG TAB.ER.24H 60 MG PO (09:39)
[2023-04-12] MEDS: DAPAGLIFLOZIN PROPANEDIOL 10 MG TABLET PO (09:39)
[2023-04-12] MEDS: GABAPENTIN 600MG TABLET 600 MG PO ×2 (09:39→14:38)
[2023-04-12] MEDS: FUROSEMIDE 40MG/4ML VIAL 80 MG IV (09:40)
--- NOTE | 2023-04-12 11:17 | HMH.OTEV ---
OT Inpatient Evaluation Rehab OT IP Evaluation Start: 04/11/23 12:52 Freq: ONCE Status: Active Protocol: Document [facility]12/23 11:[address] [address] (Rec: 04/12/23 11:16 [facility] [id number]) Rehab OT IP Assessment Subjective History Pt oriented x 3 on arrival. Pt agreeable to engage in therapy evaluation. Pt admitted on 04/11/23 due to flash pulmonary edema. Prior to being in the hospital, pt lived at home alone. He lived on a first floor apartment. Pt claims he is normally independent with all ADLs and IADLS. He does have a prosthesis on his left leg for an AKA. He reports he normally uses a cane during functional transfers. History and physcial report: Mr. Hurley is a 57-year-old male with past medical history of COPD, CAD, HTN, HLD, DM, CHF, former smoker who presents via [facility] for further evaluation of dyspnea. Patient was just discharged yesterday after being admitted for NSTEMI, dyspnea, volume overload. Found to have worsening acute on chronic heart failure with reduced ejection fraction, status post heart cath on 04/08. Was on room air doing well and had diuresed well during last admission. He presents today to the ER for increased shortness of breath. Normally wears 2 to 3 L of oxygen at night. He was stable on room air during the day for over 48 hours prior to discharge home just yesterday . Has increased shortness of breath necessitated 2 L on transport. States has been compliant with his medications including diuretics. In the ER he denies chest pain, cough , nausea, vomiting. Reports his shortness of breath was relatively sudden an hour or 2 before coming into the hospital. No significant change in weight or increase in lower extremity edema per his report however his right lower leg is more edematous than my exam yesterday. Workup in ER showed elevated BNP greater than 55,000, troponin of 10, chest imaging concern for pulmonary edema. Patient initiated on nitro drip and diuretics. Cardiology consulted and recommended admission. Medicine consulted for admission Subjective I haven't been up much. Objective Patient Orientation Person,Place,Birthday Right Upper Extremity Gross ROM WFL Left Upper Extremity Gross ROM WFL Bed Mobility bed mobility-scooting,bed mobility - supine/sit Assist Level Contact Guard/Hand Hold Transfer Training Sit/Stand Transfer Assist Level Contact Guard/Hand Hold Chair Transfer Ability Contact Guard/Hand Hold Chair Transfer Technique Sit to/from Ambulatory Chair Transfer Assistive Devices Rolling Walker Rehab OT IP prob,goals,plan Problems Date of Evaluation: 04/12/23 OT IP Problems Bed Mobility,Transfers,Balance ,Self care,Safety Rehab Potential Rehab Potential Good Equipment Needs Assistive Devices Straight Cane,Rolling / Wheeled Walker Plan OT intervention Plan Bed Mobility,Transfers,Balance ,Self care,Safety,Therapeutic Exercise OT Plan Frequency BID Duration LOS Discharge Goals Bed Mobility Ability Standby Assistance Sit to Stand Chair Transfer Ability Supervision/Stand by Chair Transfer Ability Supervision/Stand by Chair Transfer Technique Sit to/from Ambulatory Chair Transfer Assistive Devices Straight Cane,Rolling Walker Feeding Ability Independent Lower Body Dressing Ability Standby Assistance Upper Body Dressing Ability Standby Assistance Bathing Ability Standby Assistance Overall Commode/Toilet Transfer Ability Standby Assistance Commode/Toilet Transfer Technique Sit to/from Ambulatory Commode/Toilet Transfer Assistive Grab Bars Devices Oral Care Assist Standby Assistance Decrease in Endurance Yes Discharge Plan OT Discharge Plan Pt will continue to be seen for OT services while at [facility]. Pt appears to be close to baseline with functional transfers and ADL independence . Pt can return home once he is medically stable per physician. Therapist does recommend OT evaluation for continued skilled therapy. Eval Complexity Eval Charge Codes 18009 - Moderate Complexity PHYSICIAN CERTIFICATION: I certify the specified therapy services for Buzz Hurley JR are required, authorized, and reviewed every 30 days.
--- NOTE | 2023-04-12 11:18 | EXP.CARD.CON ---
History of Present Illness History of Present Illness Consult date: 04/12/23 Requesting physician: Gurinder Duke Consult reason: shortness of breath Chief complaint: soa History of present illness: Hospitalist note: Mr. Hurley is a 57-year-old male with past medical history of COPD, CAD, HTN, HLD, DM, HFrEF former smoker who presents via [facility] for further evaluation of dyspnea. Patient was just discharged yesterday after being admitted for NSTEMI, dyspnea, volume overload. Found to have worsening acute on chronic heart failure with reduced ejection fraction, status post heart cath on 04/08/2023. Was on room air doing well and had diuresed well during last admission. He presents today to the ER for increased shortness of breath. Normally wears 2 to 3 L of oxygen at night. He was stable on room air during the day for over 48 hours prior to discharge home just yesterday. Has increased shortness of breath necessitated 2 L on transport. States has been compliant with his medications including diuretics. In the ER he denies chest pain, cough, nausea, vomiting. Reports his shortness of breath was relatively sudden an hour or 2 before coming into the hospital. No significant change in weight or increase in lower extremity edema per his report however his right lower leg is more edematous than my exam yesterday. Workup in ER showed elevated BNP greater than 55,000, troponin of 10, chest imaging concern for pulmonary edema. Patient initiated on nitro drip and diuretics. Cardiology consulted and recommended admission. Medicine consulted for admission. After arriving to the floor, patient was weaned to 1 L nasal cannula oxygen due to his saturations of 100% on 2 to 3 L. Does not appear in any respiratory distress. Appears at his baseline chronic status. Of note, patient was very hesitant to go home during last admission and did not want to call family to come pick him up even though he was meeting criteria for discharge home. Concerned about patient's compliance with complex medication regimen. Noted to have stable chronic kidney disease with creatinine greater than 2. Patient appears very anxious. Cardiology note: 57 year-old white male with past medical history of heart failure with reduced ejection fraction with an EF of 30% currently wearing LifeVest, coronary artery disease status post recent stent to LAD with moderate disease noted in a large first obtuse, and chronic kidney disease presented to hospital yesterday with complaints of sudden onset of worsening shortness of breath as detailed above. Initial ER evaluation showed a BNP greater than 55,000, a troponin of 10 and a chest x-ray that was concerning for pulmonary edema. Patient was started on a nitro drip and diuresed throughout yesterday into this morning. Patient has diuresed over 2.3 liters and reports shortness of breath is greatly improved. Patient denies any chest pain or lower extremity edema. [facility] Disclaimer: The information contained in this section may have been updated after the patient was seen, as this information can be updated by other users. 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 Above knee amputation of left lower extremity Acute blood loss anemia Asthma Atypical angina CAD in eek artery Congestive heart failure COPD (chronic obstructive pulmonary disease) Diabetes mellitus Diabetes mellitus, type 2 HFrEF (heart failure with reduced ejection fraction) History of left heart catheterization (LHC) Hyperlipidemia Hypertension Ischemic cardiomyopathy LV dysfunction Peripheral arterial disease Stenosis of carotid artery Thoracic aneurysm without mention of rupture Surgical History History of cholecystectomy Status post above-knee amputation of left lower extremity Stented coronary artery Family History Family history of cancer Social History Smoking Status: Former smoker tobacco type: cigarettes packs per day: 2 alcohol intake: never current occupational status: employed and disabled Travel in the last 8 weeks: None housing: house current occupational exposures/hazards: No Review of Systems Review of Systems Review of systems:: pertinent systems reviewed and negative unless documented below *Cardiovascular Cardiovascular: Denies chest pain and Reports dyspnea *Respiratory Respiratory: Reports dyspnea Exam Data for Last 24 hours Vital signs and Labs for Last 24 Hours: Temp Pulse Resp BP Pulse Ox O2 Del Method O2 Flow Rate 98.4 F 59 L 18 95/42 L 96 Room Air 1 04/12/23 07:57 04/12/23 10:40 04/12/23 10:40 04/12/23 10:40 04/12/23 10:40 04/12/23 10:53 04/12/23 09:00 Laboratory Results - last 24 hr 04/11/23 11:11: WBC 6.2, RBC 3.78 L, Hgb 11.3 L, Hct 33.5 L, MCV 88.5, MCH 29.9, MCHC 33.7, RDW 14.9, Plt Count 200, MPV 10.0, Neut % (Auto) 67.9, Lymph % (Auto) 24.7, [place] % (Auto) 6.0, Eos % (Auto) 1.2, Baso % (Auto) 0.3, Neut # (Auto) 4.2, Lymph # (Auto) 1.5, [place] # (Auto) 0.4, Eos # (Auto) 0.1, Baso # (Auto) 0.0, Sodium 140, Potassium 5.1, Chloride 108 H, Carbon Dioxide 25, Anion Gap 12.1, BUN 48 H, Creatinine 2.50 H, Estimated Creat Clear 43, Estimated GFR 27 L, Est GFR ( Amer) 33 L, Glucose 127 H, Calcium 8.8, Total Bilirubin 1.7 H, AST 70 H, ALT 28, Alkaline Phosphatase 155 H, Troponin I 10.10 H, NT-Pro-B Natriuret Pep 75599 H, Total Protein 6.7, Albumin 3.5, Globulin 3.2, Albumin/Globulin Ratio 1.1 04/11/23 14:37: Troponin I 8.79 H 04/11/23 16:23: POC Glucose 197 H 04/11/23 17:33: Troponin I 8.70 H 04/11/23 20:30: POC Glucose 302 H* 04/12/23 05:48: POC Glucose 255 H 04/12/23 06:52: WBC 6.9, RBC 3.20 L, Hgb 9.5 L D, Hct 27.7 L, MCV 86.5, MCH 29.8, MCHC 34.5, RDW 14.9, Plt Count 202, MPV 9.9, Neut % (Auto) 84.6 H, Lymph % (Auto) 11.1, [place] % (Auto) 4.1, Eos % (Auto) 0.1, Baso % (Auto) 0.1, Neut # (Auto) 5.8, Lymph # (Auto) 0.8, [place] # (Auto) 0.3, Eos # (Auto) 0.0, Baso # (Auto) 0.0, Sodium 136, Potassium 5.0, Chloride 104, Carbon Dioxide 28, Anion Gap 9.0, BUN 63 H D, Creatinine 2.70 H, Estimated Creat Clear 39, Estimated GFR 25 L, Est GFR ( Amer) 30 L, Glucose 222 H D, Calcium 8.0 L, Magnesium 2.1, Total Bilirubin 0.8, AST 44 D, ALT 20 D, Alkaline Phosphatase 107, Total Protein 5.6 L, Albumin 3.0 L D, Globulin 2.6, Albumin/Globulin Ratio 1.2 I & O for Last 24 hours: Intake & Output 04/09/23 04/10/23 04/11/23 04/12/23 23:59 23:59 23:59 23:59 Intake Total 837.70 / 1069.70 389.025 / 389.025 Output Total 2300 / 2900 1350 / 1350 Balance -1462.30 / -1830.30 -960.975 / -960.975 Weight 198 lb 7 oz 196 lb 3 oz Constitutional Constitutional: no acute distress *Routine Respiratory Exam Respiratory: Present CTA bilaterally and symmetric chest movement *Routine Cardiovascular Exam Cardiovascular: Present RRR, Normal S1 and Normal S2 *Routine Abdominal Exam Abdominal: Present soft and normoactive bowel sounds; Absent tenderness *Routine Extremities Exam Extremities: Present full ROM and normal capillary refill; Absent edema *Routine Skin Exam Skin: Present intact, dry and warm Detailed Neck Exam: Thyroids Thyroid: Absent bruit Meds Home Medications and Allergies Home Medications Medication Instructions Recorded Confirmed Type gabapentin 600 mg tablet 600 mg PO TID 09/06/17 04/11/23 History albuterol sulfate 90 mcg/actuation 1 puff inhalation DAILY PRN 04/06/23 04/12/23 History aerosol inhaler Shortness Of Breath Or Wheezing dapagliflozin propanediol 10 mg 10 mg PO DAILY 04/06/23 04/11/23 History tablet (Farxiga) entecavir 0.5 mg tablet 0.5 mg PO DIRECTED 04/06/23 04/11/23 History insulin aspart U-100 100 unit/mL 5 unit SQ TIDWMEAL 04/06/23 04/11/23 History (3 mL) subcutaneous pen (Novolog FlexPen U-100 Insulin aspart) insulin detemir U-100 100 unit/mL 13 unit SQ HS 04/06/23 04/11/23 History (3 mL) subcutaneous pen (Levemir FlexPen) isosorbide mononitrate 60 mg 60 mg PO DAILY 04/06/23 04/11/23 History tablet,extended release 24 hr loperamide 2 mg capsule 2 mg PO DAILY PRN Diarrhea 04/06/23 04/12/23 History nitroglycerin 0.4 mg sublingual 0.4 mg sublingual Q5M PRN Chest 04/06/23 04/11/23 History tablet Pain umeclidinium 62.5 mcg/actuation 1 inh inhalation DAILY 04/06/23 04/11/23 History blister powder for inhalation (Incruse Ellipta) aspirin 81 mg chewable tablet 81 mg PO DAILY 30 days #30 tabs 04/09/23 04/11/23 Rx atorvastatin 80 mg tablet 80 mg PO DAILY 30 days #30 tabs 04/09/23 04/11/23 Rx carvedilol 12.5 mg tablet 12.5 mg PO BID 30 days #60 tabs 04/09/23 04/11/23 Rx clopidogrel 75 mg tablet 75 mg PO DAILY 30 days #30 tabs 04/09/23 04/11/23 Rx furosemide 40 mg tablet 40 mg PO BIDL 30 days #60 tabs 04/12/23 Rx hydralazine 100 mg tablet 100 mg PO TID 30 days #90 tabs 04/12/23 Rx New Prescriptions to Start Prescriptions: Gurinder Shea hydralazine Gurinder Duke Allergies Allergy/AdvReac Type Severity Reaction Status Date / Time Penicillins Allergy Verified 04/11/23 14:42 Assessment and Plan *Assessment and plan (1) Flash pulmonary edema: Status: Acute Category: Medical Code(s): J81.0 - Acute pulmonary edema (2) Myocardial injury: Status: Acute Category: Medical Code(s): I5A - Non-ischemic myocardial injury (non-traumatic) (3) Thoracic aneurysm without mention of rupture: Status: Acute Category: Medical Code(s): I71.20 - Thoracic aortic aneurysm, without rupture, unspecified (4) Ischemic cardiomyopathy: Status: Acute Category: Medical Code(s): I25.5 - Ischemic cardiomyopathy (5) HFrEF (heart failure with reduced ejection fraction): Status: Acute Category: Medical Code(s): I50.20 - Unspecified systolic (congestive) heart failure (6) CAD in eek artery: Status: Acute Category: Medical Code(s): I25.10 - Atherosclerotic heart disease of eek coronary artery without angina pectoris (7) Hypertension: Status: Acute Qualifiers: Hypertension type: primary hypertension Qualified Code(s): I10 - Essential (primary) hypertension Category: Medical Code(s): I10 - Essential (primary) hypertension (8) Hyperlipidemia: Status: Acute Qualifiers: Hyperlipidemia type: mixed hyperlipidemia Qualified Code(s): E78.2 - Mixed hyperlipidemia Category: Medical Code(s): E78.5 - Hyperlipidemia, unspecified Plan Acute on Chronic HFrEF Ischemic cardiomyopathy Pulmonary vascular congestion Dyspnea -Patient has diuresed 2.3 L and symptoms are resolving -Will continue patient on Lasix 40 mg p.o. BID at discharge -No NARESH/ARB/ARNI or aldacone due to renal function -Wean from nitro drip. Increase hydralazine to 100 mg 3 times daily in addition to Imdur 60 mg daily. Continue Coreg 12.5 mg p.o. twice daily and Farxiga 10 mg daily. -Continue with LifeVest -Repeat limited echo is pending but prelim shows ef of 30 with no change. Coronary artery disease Status post recent NSTEMI -Underwent recent left heart catheterization with stenting to LAD with 3 drug-eluting stents. Moderate disease noted to large first obtuse which will be managed medically. -Continue aspirin 81 mg p.o. daily, Plavix 75 mg p.o. daily, carvedilol 12.5 mg p.o. twice daily and atorvastatin 40 mg p.o. daily Hyperlipidemia -LDL goal less than 55, LDL is 80 -Continue atorvastatin 40 mg p.o. daily Hypertension -Will increase isosorbide and hydralazine as listed above Thoracic aneurysm -Echocardiogram showed borderline dilated ascending aorta measuring 3.7 cm. -Recommend outpatient CTA to further evaluate. Chronic kidney disease -Creatinine 2.7 -Patient needs outpatient nephrology follow-up Patient is CV stable for discharge home. Repeat echocardiogram is pending. Please discharge patient home with below listed cardiac meds and have patient follow-up in cardiology clinic later this week for reevaluation. Cardiac meds: Hydralazine 100 mg p.o. 3 times daily Imdur 60 mg p.o. daily Coreg 12.5 mg p.o. twice daily Farxiga 10 mg p.o. daily Plavix 75 mg p.o. daily Aspirin 81 mg p.o. daily Atorvastatin 40 mg p.o. daily Lasix 40 mg p.o. BID
--- NOTE | 2023-04-12 11:26 | CA_ITS ---
APPROVED REPORT EXAM: Limited 2D and color flow Echocardiogram Director Of [employer]: Liliana Haynes RDCS Ht: 6 ft 0 in Wt: 196lbs BSA: 2.11 BP: 95/49 mmHg Indications: EF CHECK, CM,CAD M-Mode Dimensions RVDd 2.05 cm (0.9-2.6) LA Diam 4.27 cm (1.9-4.0) LVDd 6.53 cm (3.5-5.7) LVDs 5.16 cm (3.5-5.7) IVSd 0.76 cm (0.6-1.1) PWd 0.95 cm (0.6-1.1) EF (Teich) 41.70% FS 21.00% EDV (Teich) 218.30 mL ESV (Teich) 127.20 mL Conclusion Limited TTE to evaluate for LVEF. Limited windows were obtained. The left ventricle is severely dilated. There is moderate to severe reduction in LV systolic function. The mid to distal inferior and inferoseptal LV taylor are nearly akinetic. LVEF is 30%. Compared to prior study from 04/06/2023, there are no significant changes. Electronically signed by : Yazmin Palm MD 04/13/2023 04:15:00
[2023-04-12 11:47] LABS: POC Glucose,Bedside 201 (70-110)
--- NOTE | 2023-04-12 11:56 | HMH.PTEV ---
Physical Therapy Evaluation Rehab PT IP Evaluation Start: 04/11/23 12:52 Freq: ONCE Status: Active Protocol: Document 04/12/23 11:53 LITA (Rec: 04/12/23 11:56 [email or web address] [id number]) Subjective/History History History 57 yowm adm to [facility] with flash pulmonary edema. He has PMH of COPD, CAD, HTN, HLD, DM, CHF, L AKA. He reports he lives alone, 1-2 steps to enter the home, and he is generally independent with all mobility using a quad cane. Subjective Subjective Currently he reports feeling better, no new c/o, agrees to mobility assessment. New diagnosis of cancer in past 12 No months? Rehab PT IP Eval Objective Appearance Patient Behavior Appropriate Patient Orientation Person,Place,Time Difficulty following instructions none Speech Pattern Clear Ambulation Patient Able to Ambulate Yes Ambulation Observation Ambulation Distance (feet) 15 Ambulation Assistive Device Rolling Walker Ambulation Ability Supervision/Stand by Balance Ability to Arise Able, uses arms to help Sitting Balance Steady, safe Standing Balance Steady, wide stance Dynamic Sitting Balance Ability Good Dynamic Standing Balance Ability Good Transfers Sit to Stand Bed Transfer Ability Supervision/Stand by Sit to Stand Chair Transfer Ability Supervision/Stand by Rehab PT IP prob,goals,plan Problems Date of Evaluation: 04/12/23 PT IP Problems Bed Mobility,Transfers,Gait Rehab Potential Rehab Potential Good Plan PT Intervention Plan Bed Mobility,Transfers,Gait, Therapeutic Exercise PT Plan Frequency Daily Discharge Goals Bed Transfer Ability Independent Sit to Stand Chair Transfer Ability Independent Ambulation Assistive Device Rolling Walker Ambulation Distance (feet) 30 Discharge Plan PT Discharge Plan Pt is appropriate to return home once medically stable for d/c, Skilled intervention is necessary to prevent further debility, falls, wounds, or injury. Eval Complexity Eval Charge Codes 26658 - High Complexity PHYSICIAN CERTIFICATION: I certify the specified therapy services for Buzz Hurley are required, authorized, and reviewed every 30 days.
--- NOTE | 2023-04-12 12:48 | EXP.DC.SUM ---
General Admission date:: 04/11/23 Discharge date: 04/12/23 HPI HPI HPI: Mr. Hurley is a 57-year-old male with past medical history of COPD, CAD, HTN, HLD, DM, CHF, former smoker who presents via [facility] for further evaluation of dyspnea. Patient was just discharged yesterday after being admitted for NSTEMI, dyspnea, volume overload. Found to have worsening acute on chronic heart failure with reduced ejection fraction, status post heart cath on 04/08/2023. Was on room air doing well and had diuresed well during last admission. He presents today to the ER for increased shortness of breath. Normally wears 2 to 3 L of oxygen at night. He was stable on room air during the day for over 48 hours prior to discharge home just yesterday. Has increased shortness of breath necessitated 2 L on transport. States has been compliant with his medications including diuretics. In the ER he denies chest pain, cough, nausea, vomiting. Reports his shortness of breath was relatively sudden an hour or 2 before coming into the hospital. No significant change in weight or increase in lower extremity edema per his report however his right lower leg is more edematous than my exam yesterday. Workup in ER showed elevated BNP greater than 55,000, troponin of 10, chest imaging concern for pulmonary edema. Patient initiated on nitro drip and diuretics. Cardiology consulted and recommended admission. Medicine consulted for admission. After arriving to the floor, patient was weaned to 1 L nasal cannula oxygen due to his saturations of 100% on 2 to 3 L. Does not appear in any respiratory distress. Appears at his baseline chronic status. Of note, patient was very hesitant to go home during last admission and did not want to call family to come pick him up even though he was meeting criteria for discharge home. Concerned about patient's compliance with complex medication regimen. Noted to have stable chronic kidney disease with creatinine greater than 2. Patient appears very anxious. Hospital Course Hospital Course Hospital Course: 57-year-old male with peripheral artery disease, diabetes, heart failure with reduced ejection fraction. Admitted for CHF exacerbation and NSTEMI. Cardiology consulted, appreciate their recommendations. Patient had undergone left heart cath at previous admission. No further plan for intervention at this time. Medications were adjusted to optimize fluid management. Stable to discharge home. Patient not meeting criteria for discharge to rehab or nursing facility. Provided with walker prior to discharge home. Problems addressed as follows: Acute on chronic heart failure with reduced ejection fraction NSTEMI Hypertension Hyperlipidemia - Cardiology consulted, appreciate their recommendations. Patient underwent left heart cath 04/08/2023 at previous admission with 3 contiguous stents to the LAD. Tolerated procedure well. During this admission we continued his dual antiplatelet therapy consisting of Plavix 75 mg daily and aspirin 81 mg daily. Echocardiogram with a EF of 30% on repeat this admission. LifeVest provided at last visit. Patient not wearing regularly, encouraged to wear. Has it at home. Patient's blood pressure has remained stable. Continue carvedilol 12.5 mg twice daily. Continue hydralazine with dosage increase. Continue isosorbide. Lasix increased. Medications provided prior to discharge home. Plan for close follow-up with cardiology. Renal artery duplex reviewed from previous admission showing no significant stenosis. KOKO versus CKD -Creatinine remained elevated during admission. Unclear patient's baseline however appears to have chronic kidney disease. Creatinine stable at 2.7 with BUN of 632 on day before discharge. Will need repeat labs at follow-up with CBC, CMP, magnesium. Consider NARESH ARB/Entresto if blood pressure improves after discharge home. Attempts previously to refer patient to nephrology, patient has unfortunately not kept these appointments. Diabetes: Basal insulin glargine 25 units nightly. Continue with sliding scale insulin ACHS. A1c elevated at 7.5. Resume home regimen at discharge Spent 30 minutes in discharge counseling, documentation, chart review, and direct care with patient. Exam Data for Last 24 hours Vital signs and Labs for Last 24 Hours: Temp Pulse Resp BP Pulse Ox O2 Del Method O2 Flow Rate 98.4 F 68 18 115/71 97 Room Air 1 04/12/23 11:34 04/12/23 12:24 04/12/23 12:24 04/12/23 12:24 04/12/23 12:24 04/12/23 12:24 04/12/23 09:00 Laboratory Results - last 24 hr 04/11/23 14:37: Troponin I 8.79 H 04/11/23 16:23: POC Glucose 197 H 04/11/23 17:33: Troponin I 8.70 H 04/11/23 20:30: POC Glucose 302 H* 04/12/23 05:48: POC Glucose 255 H 04/12/23 06:52: WBC 6.9, RBC 3.20 L, Hgb 9.5 L D, Hct 27.7 L, MCV 86.5, MCH 29.8, MCHC 34.5, RDW 14.9, Plt Count 202, MPV 9.9, Neut % (Auto) 84.6 H, Lymph % (Auto) 11.1, Williams % (Auto) 4.1, Eos % (Auto) 0.1, Baso % (Auto) 0.1, Neut # (Auto) 5.8, Lymph # (Auto) 0.8, Williams # (Auto) 0.3, Eos # (Auto) 0.0, Baso # (Auto) 0.0, Sodium 136, Potassium 5.0, Chloride 104, Carbon Dioxide 28, Anion Gap 9.0, BUN 63 H D, Creatinine 2.70 H, Estimated Creat Clear 39, Estimated GFR 25 L, Est GFR ( Amer) 30 L, Glucose 222 H D, Calcium 8.0 L, Magnesium 2.1, Total Bilirubin 0.8, AST 44 D, ALT 20 D, Alkaline Phosphatase 107, Total Protein 5.6 L, Albumin 3.0 L D, Globulin 2.6, Albumin/Globulin Ratio 1.2 04/12/23 11:39: POC Glucose 201 H I & O for Last 24 hours: Intake & Output 04/09/23 04/10/23 04/11/23 04/12/23 23:59 23:59 23:59 23:59 Intake Total 837.70 / 1069.70 933.475 / 933.475 Output Total 2300 / 2900 1500 / 1500 Balance -1462.30 / -1830.30 -566.525 / -566.525 Weight 90.01 kg 88.989 kg Constitutional Constitutional: no acute distress, average body habitus, chronically ill appearing and cooperative *Routine HEENT Exam Head: Present normocephalic Eye: Present EOMI and PERRL ENT: Present mucous membranes moist *Routine Neck Exam Neck: Present supple; Absent lymphadenopathy *Routine Respiratory Exam Respiratory: Present CTA bilaterally; Absent rhonchi, wheezes or crackles *Routine Cardiovascular Exam Cardiovascular: Present RRR *Routine Abdominal Exam Abdominal: Present soft and normoactive bowel sounds; Absent tenderness *Routine Extremities Exam Extremities: Present edema (Trace in right lower extremity); Absent cyanosis or clubbing Comments: Left AKA; thenar wasting bilaterally *Routine Skin Exam Skin: Present warm; Absent rash *Routine Neurological Exam Neurological: Present alert, oriented X3 and moving all extremities; Absent altered mental status Results Data Completed and Pending Labs on day of discharge: Labs from last 24 hours 04/12/23 04/12/23 04/12/23 11:39 06:52 05:48 WBC 6.9 RBC 3.20 L Hgb 9.5 L D Hct 27.7 L MCV 86.5 MCH 29.8 MCHC 34.5 RDW 14.9 Plt Count 202 MPV 9.9 Neut % (Auto) 84.6 H Lymph % (Auto) 11.1 Williams % (Auto) 4.1 Eos % (Auto) 0.1 Baso % (Auto) 0.1 Neut # (Auto) 5.8 Lymph # (Auto) 0.8 Williams # (Auto) 0.3 Eos # (Auto) 0.0 Baso # (Auto) 0.0 Sodium 136 Potassium 5.0 Chloride 104 Carbon Dioxide 28 Anion Gap 9.0 BUN 63 H D Creatinine 2.70 H Estimated Creat Clear 39 Estimated GFR 25 L Est GFR ( Amer) 30 L Glucose 222 H D POC Glucose 201 H 255 H Calcium 8.0 L Magnesium 2.1 Total Bilirubin 0.8 AST 44 D ALT 20 D Alkaline Phosphatase 107 Troponin I Total Protein 5.6 L Albumin 3.0 L D Globulin 2.6 Albumin/Globulin Ratio 1.2 04/11/23 04/11/23 04/11/23 20:30 17:33 16:23 WBC RBC Hgb Hct MCV MCH MCHC RDW Plt Count MPV Neut % (Auto) Lymph % (Auto) Williams % (Auto) Eos % (Auto) Baso % (Auto) Neut # (Auto) Lymph # (Auto) Williams # (Auto) Eos # (Auto) Baso # (Auto) Sodium Potassium Chloride Carbon Dioxide Anion Gap BUN Creatinine Estimated Creat Clear Estimated GFR Est GFR ( Amer) Glucose POC Glucose 302 H* 197 H Calcium Magnesium Total Bilirubin AST ALT Alkaline Phosphatase Troponin I 8.70 H Total Protein Albumin Globulin Albumin/Globulin Ratio 04/11/23 14:37 WBC RBC Hgb Hct MCV MCH MCHC RDW Plt Count MPV Neut % (Auto) Lymph % (Auto) Williams % (Auto) Eos % (Auto) Baso % (Auto) Neut # (Auto) Lymph # (Auto) Williams # (Auto) Eos # (Auto) Baso # (Auto) Sodium Potassium Chloride Carbon Dioxide Anion Gap BUN Creatinine Estimated Creat Clear Estimated GFR Est GFR ( Amer) Glucose POC Glucose Calcium Magnesium Total Bilirubin AST ALT Alkaline Phosphatase Troponin I 8.79 H Total Protein Albumin Globulin Albumin/Globulin Ratio DS: Diagnosis Discharge Diagnosis (1) Flash pulmonary edema: Status: Acute Code(s): J81.0 - Acute pulmonary edema (2) Myocardial injury: Status: Acute Code(s): I5A - Non-ischemic myocardial injury (non-traumatic) (3) Thoracic aneurysm without mention of rupture: Status: Acute Code(s): I71.20 - Thoracic aortic aneurysm, without rupture, unspecified (4) Ischemic cardiomyopathy: Status: Acute Code(s): I25.5 - Ischemic cardiomyopathy (5) HFrEF (heart failure with reduced ejection fraction): Status: Acute Code(s): I50.20 - Unspecified systolic (congestive) heart failure (6) CAD in [place] artery: Status: Acute Code(s): I25.10 - Atherosclerotic heart disease of [place] coronary artery without angina pectoris (7) Hypertension: Status: Acute Code(s): I10 - Essential (primary) hypertension Qualifiers: Hypertension type: primary hypertension Qualified Code(s): I10 - Essential (primary) hypertension (8) Hyperlipidemia: Status: Acute Code(s): E78.5 - Hyperlipidemia, unspecified Qualifiers: Hyperlipidemia type: mixed hyperlipidemia Qualified Code(s): E78.2 - Mixed hyperlipidemia Meds Home Medications and Allergies Home Medications Medication Instructions Recorded Confirmed Type gabapentin 600 mg tablet 600 mg PO TID 09/06/17 04/11/23 History albuterol sulfate 90 mcg/actuation 1 puff inhalation DAILY PRN 04/06/23 04/12/23 History aerosol inhaler Shortness Of Breath Or Wheezing dapagliflozin propanediol 10 mg 10 mg PO DAILY 04/06/23 04/11/23 History tablet (Farxiga) entecavir 0.5 mg tablet 0.5 mg PO DIRECTED 04/06/23 04/11/23 History insulin aspart U-100 100 unit/mL 5 unit SQ TIDWMEAL 04/06/23 04/11/23 History (3 mL) subcutaneous pen (Novolog FlexPen U-100 Insulin aspart) insulin detemir U-100 100 unit/mL 13 unit SQ HS 04/06/23 04/11/23 History (3 mL) subcutaneous pen (Levemir FlexPen) isosorbide mononitrate 60 mg 60 mg PO DAILY 04/06/23 04/11/23 History tablet,extended release 24 hr loperamide 2 mg capsule 2 mg PO DAILY PRN Diarrhea 04/06/23 04/12/23 History nitroglycerin 0.4 mg sublingual 0.4 mg sublingual Q5M PRN Chest 04/06/23 04/11/23 History tablet Pain umeclidinium 62.5 mcg/actuation 1 inh inhalation DAILY 04/06/23 04/11/23 History blister powder for inhalation (Incruse Ellipta) aspirin 81 mg chewable tablet 81 mg PO DAILY 30 days #30 tabs 04/09/23 04/11/23 Rx atorvastatin 80 mg tablet 80 mg PO DAILY 30 days #30 tabs 04/09/23 04/11/23 Rx carvedilol 12.5 mg tablet 12.5 mg PO BID 30 days #60 tabs 04/09/23 04/11/23 Rx clopidogrel 75 mg tablet 75 mg PO DAILY 30 days #30 tabs 04/09/23 04/11/23 Rx furosemide 40 mg tablet 40 mg PO BIDL 30 days #60 tabs 04/12/23 Rx hydralazine 100 mg tablet 100 mg PO TID 30 days #90 tabs 04/12/23 Rx New Prescriptions to Start Prescriptions: furosemide Gurinder Duke hydralazine Gurinder Duke Allergies Allergy/AdvReac Type Severity Reaction Status Date / Time Penicillins Allergy Verified 04/11/23 14:42 Discharge Plan Disposition Patient Disposition: Home, Self-Care Condition: Fair Follow up Plan Follow up with: Erik Hurley [Referring] - 2 weeks (please call for appointment as office is closed) Robert Mcfadden MD [Staff Physician] - 04/21/23 1:15 pm Prescriptions/Medication Reconciliation: New hydralazine 100 mg tablet 100 mg PO TID 30 Days Qty: 90 0RF furosemide 40 mg Tablet 40 mg PO BIDL 30 Days Qty: 60 0RF Continued gabapentin 600 MG tablet 600 mg PO TID loperamide 2 mg capsule 2 mg PO DAILY PRN (Reason: Diarrhea ) isosorbide mononitrate 60 mg tablet extended release 24 hr 60 mg PO DAILY nitroglycerin 0.4 mg Tablet, Sublingual 0.4 mg SUBLINGUAL Q5M PRN (Reason: Chest Pain) Rx Instructions: Do not exceed 3 doses per episode albuterol sulfate 90 mcg/actuation HFA aerosol inhaler 1 puff INHALATION DAILY PRN (Reason: Shortness Of Breath Or Wheezing) insulin aspart U-100 [Novolog FlexPen U-100 Insulin] 100 unit/mL (3 mL) insulin pen 5 unit SQ TIDWMEAL entecavir 0.5 mg tablet 0.5 mg PO DIRECTED Rx Instructions: Take one tablet every 3 days Levemir FlexPen 100 unit/mL (3 mL) insulin pen 13 unit SQ HS Farxiga 10 mg tablet 10 mg PO DAILY Incruse Ellipta 62.5 mcg/actuation blister with device 1 inh INHALATION DAILY clopidogrel 75 mg Tablet 75 mg PO DAILY 30 Days Qty: 30 0RF atorvastatin 80 MG tablet 80 mg PO DAILY 30 Days Qty: 30 0RF carvedilol 12.5 mg tablet 12.5 mg PO BID 30 Days Qty: 60 0RF aspirin 81 mg Tablet,Chewable 81 mg PO DAILY 30 Days Qty: 30 0RF Discontinued furosemide 40 mg tablet 40 mg PO DAILY hydralazine 50 mg tablet 50 mg PO TID hydrochlorothiazide 25 mg tablet 25 mg PO DAILY Other Ambulatory Orders: Home Medical Equipment (Routine) Location: None Selected Ordered By: Gurinder Duke Problem Reconciliation Problems Reviewed?: Yes Patient Discharge Instructions ACTIVITY: Continue current activity DIET: continue same diet Patient Instructions: Essential Hypertension, Acute Respiratory Distress Syndrome, DI for Shortness of Breath Providers Primary Care Provider: Provider,Referral Admit Provider: Gurinder Duke Attending Provider: Gurinder Duke
--- NOTE | 2023-04-12 13:34 | PC.NURSE ---
advised pt that MD has entered discharge order for him at this time. pt states that he is unable to leave until tomorrow morning as his son is at work until 1130p. pt states the he also does not have a padilla to his home at this time. states that while he is in the hospital, he gives his house padilla to his son to keep as well.
[2023-04-12] MEDS: HYDRALAZINE HCL 25MG TABLET 100 MG PO (14:39)
--- NOTE | 2023-04-12 14:43 | PC.NURSE ---
ok to transfer out of stepdown to [facility]
--- NOTE | 2023-04-12 15:22 | CARE MANAGER ---
Addendum entered by Nupur Klein 04/13/23 07:27: Regina w/ [facility] w/ [facility] will be assisting this patient w/ [facility] Waiver services. Original Note: Patient in need of walker. States Olaf is good to use. Faxed information
--- NOTE | 2023-04-15 13:34 | CARE MANAGER ---
Attempted to contact patient x2 related to hospital discharge. Left VM. JAME Hurst
== END 2023-04-12 16:02 | disposition home or self-care (01) ==
LOC: ER 12:43 → 2ND 13:24
PROVIDERS: Student in an Organized Health Care Education/Training Program; Admitting Provider Internal Medicine Adolescent Medicine; Emergency Provider Ophthalmology; Visit Provider Internal Medicine Adolescent Medicine
DX: I50.23 Acute on chronic systolic (congestive) heart failure (principal); E11.22 Type 2 diabetes mellitus with diabetic chronic kidney disease; Z79.4 Long term (current) use of insulin; I5A Non-ischemic myocardial injury (non-traumatic); I71.20 Thoracic aortic aneurysm, without rupture, unspecified; I25.5 Ischemic cardiomyopathy; I25.10 Atherosclerotic heart disease of native coronary artery without angina pectoris; E78.2 Mixed hyperlipidemia; Z79.899 Other long term (current) drug therapy; Z95.5 Presence of coronary angioplasty implant and graft; N18.9 Chronic kidney disease, unspecified; I13.0 Hypertensive heart and chronic kidney disease with heart failure and stage 1 through stage 4 chronic kidney disease, or unspecified chronic kidney disease; D63.1 Anemia in chronic kidney disease
CPT/HCPCS: 36415; 71045; 80053; 82962; 83735; 83880; 84484; 85025; 93005; 93308; 94640; 97110; 97163; 97166; 99291; G0378

== ENCOUNTER 2024-02-23 18:46 | Inpatient (IN) | payer MEDICARE, MEDICAID, SELFPAY ==
--- OUTSIDE RECORDS SUMMARY | 2024-02-23 18:52 | XMS_ITS | Summary of Care ---
Author Organization [facility] Address [address] [place] [address]- Care Team Providers Care Gem Cutter Name Role Phone Erik Hurley Primary Care Physician Unavailab le Encounter 03/10/19 - 03/25/19 [facility] [address] [place] [address] Encounter Diagnosis L AKA(Discharge Diagnosis) - 03/09/19 Discharge Disposition: Home with Home Health Care Attending Physician: Divya Leon DO Admitting Physician: Divya Leon DO Allergies, Adverse Reactions, Alerts Substance Reaction Severity Status penicillin Shortness of breath Active Medications acetaminophen 325 mg oral tablet 650 mg = 2 tab, Tab, Oral, q4hr PRN, 0 Refill(s), PAIN (Scale 4-6) Start Date: 03/23/19 Status: Ordered ammonium lactate 12% topical lotion 1 harjeet, Lotion, TOP BID, 140 gm, Refill(s) 2, Print Requisition Start Date: 03/24/19 Status: Ordered aspirin 81 mg oral tablet, chewable 81 mg = 1 tab, Tab-Chew, Oral, Daily, 30 tab, 0 Refill(s), Print Requisition Start Date: 03/23/19 Status: Ordered atorvastatin 80 mg oral tablet 80 mg = 1 tab, Tab, Oral, Daily, 30 tab, 0 Refill(s), Print Requisition Start Date: 03/23/19 Status: Ordered Basaglar KwikPen 100 units/mL subcutaneous solution 14 units, Subcutaneous, Daily, 10 mL, 0 Refill(s), Print Requisition Start Date: 03/23/19 Status: Ordered Basaglar KwikPen 100 units/mL subcutaneous solution 28 units, Injection-Insulin (soln), Subcutaneous, QHS, 10 mL, 0 Refill(s), Print Requisition Start Date: 03/23/19 Status: Ordered cholecalciferol 1000 intl units oral tablet 2,000 IntlUnit = 2 tab, Tab, Oral, Daily, 60 tab, 0 Refill(s), Print Requisition Start Date: 03/23/19 Status: Ordered Cymbalta 30 mg oral delayed release capsule 30 mg = 1 cap, Cap-DR, Oral, Daily, 30 cap, 0 Refill(s), Print Requisition Start Date: 03/23/19 Status: Ordered insulin aspart 100 units/mL injectable solution 10 units, Injection-Insulin (soln), Subcutaneous, TIDmeals, 10 mL, 0 Refill(s), Print Requisition Start Date: 03/23/19 Status: Ordered losartan 25 mg oral tablet 25 mg = 1 tab, Tab, Oral, Daily, 30 tab, 0 Refill(s), Print Requisition Start Date: 03/23/19 Status: Ordered Lyrica 150 mg oral capsule 150 mg = 1 cap, Cap, Oral, BID, 60 cap, 0 Refill(s), Print Requisition Start Date: 03/23/19 Status: Ordered magnesium oxide 400 mg (241.3 mg elemental magnesium) oral tablet 400 mg = 1 tab, Tab, Oral, Daily, 30 tab, 0 Refill(s), Dispense: 30 day, Stop date 04/22/19 17:59:00 EST, Print Requisition Start Date: 03/23/19 Stop Date: 04/22/19 Status: Ordered Multiple Vitamins oral tablet 1 tab, Tab, Oral, Daily, 30 tab, 0 Refill(s), Print Requisition Start Date: 03/23/19 Stop Date: 04/22/19 Status: Ordered nortriptyline 10 mg oral capsule 10 mg = 1 cap, Cap, Oral, QHS, 30 cap, 0 Refill(s), Print Requisition Start Date: 03/23/19 Status: Ordered oxyCODONE 5 mg oral tablet 5 mg = 1 tab, Tab, Oral, q4hr PRN, 20 tab, 0 Refill(s), PAIN (Scale 7-10), Print Requisition Start Date: 03/23/19 Status: Ordered Problem List Condition Effective Dates Status Health Status Inform ant ADL impairment(Confirmed) Active Impaired mobility(Confirmed) Active Results Laboratory List Name Date Glucose, POC 03/25/19 Glucose, POC 03/24/19 Glucose, POC 03/24/19 Automated Diff HSL 03/23/19 Complete Blood Count w/Auto Diff HSL (CB C w/Auto Diff HSL) 03/23/19 Comprehensive Metabolic Panel HSL (CMP H SL) 03/23/19 Vancomycin Trough HSL 03/21/19 Automated Diff HSL 03/20/19 Complete Blood Count w/Auto Diff HSL (CB C w/Auto Diff HSL) 03/20/19 Comprehensive Metabolic Panel HSL (CMP H SL) 03/20/19 Automated Diff HSL 03/16/19 Complete Blood Count w/Auto Diff HSL (CB C w/Auto Diff HSL) 03/16/19 Comprehensive Metabolic Panel HSL (CMP H SL) 03/16/19 Vancomycin Trough HSL 03/16/19 Vancomycin Trough HSL (Trough Vancomycin Level HSL) 03/14/19 Urinalysis Complete w/Rflx Culture HSL 1 05/12/18 C-Reactive Protein HSL (CRP HSL) 9 Folate (Folic Acid), Serum - QST 9 Magnesium HSL 03/11/19 Phosphorus HSL 03/11/19 Prealbumin HSL 03/11/19 Sedimentation Rate HSL (Erythrocyte Sed Rate HSL) 03/11/19 Vitamin B12 - QST 03/11/19 Vitamin D 25-OH D/D2/D3 LC/MS/MS - QST 1 05/12/18 TSH - QST 03/10/19 LABORATORY Most recent to oldest [Reference Range]: 1 2 3 4 Folate, Serum - QST 5.9 ng/mL 1 *NA* (03/11/19 6:45 AM) TSH - QST [0.40-4.50 mIUnits/L] 3.66 mIUnits/L 2 *NA* (03/10/19 6:45 AM) C-Reactive Protein HSL [<=1.0 mg/dL] 4.5 mg/dL *HI* (03/11/19 6:45 AM) Vitamin B12 - QST [200-1100 pg/mL] 1837 pg/mL 3 *HI* (03/11/19 6:45 AM) Vitamin D, 25-OH, Total - QST [30-100 ng/mL] 16 ng/mL 4 *LOW* (03/11/19 6:45 AM) Vitamin D, 25-OH, D3 - QST 16 ng/mL 5 *NA* (03/11/19 6:45 AM) Vitamin D, 25-OH, D2 - QST <4 ng/mL 6 *NA* (03/11/19 6:45 AM) Glucose POC RALS [74-106 mg/dL] 205 mg/dL *HI* (03/25/19 7:23 AM) 185 mg/dL *HI* (03/24/19 8:47 PM) 306 mg/dL *HI* (03/24/19 4:58 PM) Blood Glucose, Capillary [74-106 mg/dL] 125 mg/dL *HI* (03/23/19 12:49 PM) 344 mg/dL *HI* (03/18/19 10:32 PM) 195 mg/dL *HI* (03/13/19 10:19 PM) Vancomycin Trough HSL [12.0-18.0 mcg/mL] 18.0 mcg/mL (03/21/19 10:25 AM) 13.3 mcg/mL (03/16/19 9:30 AM) 22.4 mcg/mL *HI* (03/14/19 5:00 AM) WBC HSL [4.5-11.5 x10(3)/mcL] 3.9 x10(3)/mcL *LOW* (03/23/19 5:55 AM) 4.2 x10(3)/mcL *LOW* (03/20/19 6:22 AM) 4.4 x10(3)/mcL *LOW* (03/16/19 9:30 AM) RBC HSL [4.10-5.80 x10(6)/mcL] 3.21 x10(6)/mcL *LOW* (03/23/19 5:55 AM) 3.21 x10(6)/mcL *LOW* (03/20/19 6:22 AM) 3.07 x10(6)/mcL *LOW* (03/16/19 9:30 AM) Hemoglobin HSL [13.5-17.5 gm/dL] 9.0 gm/dL *LOW* (03/23/19 5:55 AM) 8.9 gm/dL *LOW* (03/20/19 6:22 AM) 8.4 gm/dL *LOW* (03/16/19 9:30 AM) Hematocrit HSL [40.0-53.0 %] 29.8 % *LOW* (03/23/19 5:55 AM) 29.8 % *LOW* (03/20/19 6:22 AM) 28.1 % *LOW* (03/16/19 9:30 AM) MCV HSL [80.0-103.4 fL] 92.8 fL (03/23/19 5:55 AM) 92.8 fL (03/20/19 6:22 AM) 91.5 fL (03/16/19 9:30 AM) MCH HSL [26.0-34.0 pg] 28.0 pg (03/23/19 5:55 AM) 27.7 pg (03/20/19 6:22 AM) 27.4 pg (03/16/19 9:30 AM) MCHC HSL [31.5-35.0 gm/dL] 30.2 gm/dL *LOW* (03/23/19 5:55 AM) 29.9 gm/dL *LOW* (03/20/19 6:22 AM) 29.9 gm/dL *LOW* (03/16/19 9:30 AM) Platelet HSL [150-450 x10(3)/mcL] 323 x10(3)/mcL (03/23/19 5:55 AM) 344 x10(3)/mcL (03/20/19 6:22 AM) 389 x10(3)/mcL (03/16/19 9:30 AM) RDW-CV% HSL [11.6-14.4 %] 16.7 % *HI* (03/23/19 5:55 AM) 16.6 % *HI* (03/20/19 6:22 AM) 15.8 % *HI* (03/16/19 9:30 AM) RDW-SD HSL [35.1-43.9 fL] 54.5 fL *HI* (03/23/19 5:55 AM) 54.5 fL *HI* (03/23/19 5:55 AM) 53.7 fL *HI* (03/20/19 6:22 AM) 53.7 fL *HI* (03/20/19 6:22 AM) MPV HSL 9.5 *NA* (03/23/19 5:55 AM) 9.4 *NA* (03/20/19 6:22 AM) 8.7 *NA* (03/16/19 9:30 AM) Neutrophil Auto HSL [39.7-77.3 %] 33.4 % *LOW* (03/23/19 5:55 AM) 38.1 % *LOW* (03/20/19 6:22 AM) 54.8 % (03/16/19 9:30 AM) Lymphocyte Auto HSL [17.8-51.8 %] 50.9 % (03/23/19 5:55 AM) 47.1 % (03/20/19 6:22 AM) 35.8 % (03/16/19 9:30 AM) Monocyte Auto HSL [3.0-10.4 %] 11.5 % *HI* (03/23/19 5:55 AM) 11.9 % *HI* (03/20/19 6:22 AM) 6.4 % (03/16/19 9:30 AM) Eosinophil Auto HSL [0.0-7.0 %] 3.1 % (03/23/19 5:55 AM) 1.7 % (03/20/19 6:22 AM) 1.6 % (03/16/19 9:30 AM) Basophil Auto HSL [0.0-0.9 %] 0.8 % (03/23/19 5:55 AM) 0.7 % (03/20/19 6:22 AM) 0.9 % (03/16/19 9:30 AM) Immature Gran Auto HSL [0.0-0.5 %] 0.3 % (03/23/19 5:55 AM) 0.5 % (03/20/19 6:22 AM) 0.5 % (03/16/19 9:30 AM) Neutrophil Absolute HSL [1.20-5.30 x10(3)/mcL] 1.31 x10(3)/mcL (03/23/19 5:55 AM) 1.60 x10(3)/mcL (03/20/19 6:22 AM) 2.40 x10(3)/mcL (03/16/19 9:30 AM) Lymphocyte Absolute HSL [0.8-2.7 x10(3)/mcL] 2.0 x10(3)/mcL (03/23/19 5:55 AM) 2.0 x10(3)/mcL (03/20/19 6:22 AM) 1.6 x10(3)/mcL (03/16/19 9:30 AM) Monocyte Absolute HSL [<=1.00 x10(3)/mcL] 0.45 x10(3)/mcL (03/23/19 5:55 AM) 0.50 x10(3)/mcL (03/20/19 6:22 AM) 0.28 x10(3)/mcL (03/16/19 9:30 AM) Eosinophil Absolute HSL [0.00-0.40 x10(3)/mcL] 0.12 x10(3)/mcL (03/23/19 5:55 AM) 0.07 x10(3)/mcL (03/20/19 6:22 AM) 0.07 x10(3)/mcL (03/16/19 9:30 AM) Basophil Absolute HSL [0.00-0.05 x10(3)/mcL] 0.03 x10(3)/mcL (03/23/19 5:55 AM) 0.03 x10(3)/mcL (03/20/19 6:22 AM) 0.04 x10(3)/mcL (03/16/19 9:30 AM) Immature Gran Absolute HSL [0.00-0.04 x10(3)/mcL] 0.01 x10(3)/mcL (03/23/19 5:55 AM) 0.02 x10(3)/mcL (03/20/19 6:22 AM) 0.02 x10(3)/mcL (03/16/19 9:30 AM) Color UR HSL [yellow] yellow (03/10/19 5:30 PM) Appearance UR HSL [clear] clear (03/10/19 5:30 PM) Specific [place] UR HSL [1.010-1.040] 1.005 (03/10/19 5:30 PM) pH UR HSL [5] 7 (03/10/19 5:30 PM) Glucose UR HSL norm *NA* (03/10/19 5:30 PM) Bilirubin UR HSL neg *NA* (03/10/19 5:30 PM) Ketones UR HSL neg *NA* (03/10/19 5:30 PM) Blood UR HSL [Neg unit/L] 50 unit/L *ABN* (03/10/19 5:30 PM) Protein UR HSL neg *NA* (03/10/19 5:30 PM) Urobilinogen UR HSL [Normal mg/dL] 1 mg/dL *ABN* (03/10/19 5:30 PM) Nitrite UR HSL neg *NA* (03/10/19 5:30 PM) Leukocyte Esterase UR HSL [Neg mg/dL] 100 mg/dL *ABN* (03/10/19 5:30 PM) Squamous Epithelials UR HSL [0-5] Rare (03/10/19 5:30 PM) Bacteria UR HSL Rare /HPF *ABN* (03/10/19 5:30 PM) WBC UR HSL [None Seen /HPF] 3-4 /HPF (03/10/19 5:30 PM) RBC UR HSL [None Seen] None Seen (03/10/19 5:30 PM) Specimen Source UR HSL Clean Catch (03/10/19 5:30 PM) Sedimentation Rate HSL [0-20 mm/hr] 60 mm/hr *HI* (03/11/19 6:45 AM) Estimated Creatinine Clearance 139.16 mL/min (03/23/19 9:08 AM) 125.04 mL/min (03/20/19 10:28 AM) 126.88 mL/min (03/18/19 6:19 AM) Creatinine Level 0.62 mg/dL (03/23/19 5:55 AM) 0.69 mg/dL (03/20/19 6:22 AM) 0.68 mg/dL (03/16/19 9:30 AM) Sodium HSL [138-146 mmol/L] 137 mmol/L *LOW* (03/23/19 5:55 AM) 139 mmol/L (03/20/19 6:22 AM) 138 mmol/L (03/16/19 9:30 AM) Potassium HSL [3.6-5.1 mmol/L] 3.9 mmol/L (03/23/19 5:55 AM) 3.7 mmol/L (03/20/19 6:22 AM) 4.0 mmol/L (03/16/19 9:30 AM) Chloride HSL [101-111 mmol/L] 106 mmol/L (03/23/19 5:55 AM) 106 mmol/L (03/20/19 6:22 AM) 103 mmol/L (03/16/19 9:30 AM) Carbon Dioxide HSL [22.0-32.0 mmol/L] 26.0 mmol/L (03/23/19 5:55 AM) 27.0 mmol/L (03/20/19 6:22 AM) 32.0 mmol/L (03/16/19 9:30 AM) Anion Gap HSL [8-16 mmol/L] 9 mmol/L (03/23/19 5:55 AM) 10 mmol/L (03/20/19 6:22 AM) 7 mmol/L *LOW* (03/16/19 9:30 AM) Glucose HSL [74-118 mg/dL] 97 mg/dL (03/23/19 5:55 AM) 77 mg/dL (03/20/19 6:22 AM) 165 mg/dL *HI* (03/16/19 9:30 AM) BUN HSL [8.0-26.0 mg/dL] 19.0 mg/dL (03/23/19 5:55 AM) 17.0 mg/dL (03/20/19 6:22 AM) 20.0 mg/dL (03/16/19 9:30 AM) Creatinine HSL [0.61-1.24 mg/dL] 0.62 mg/dL (03/23/19 5:55 AM) 0.69 mg/dL (03/20/19 6:22 AM) 0.68 mg/dL (03/16/19 9:30 AM) eGFR-AA HSL 116 *NA* (03/23/19 5:55 AM) 102 *NA* (03/20/19 6:22 AM) 104 *NA* (03/16/19 9:30 AM) eGFR-Non AA HSL 137 *NA* (03/23/19 5:55 AM) 121 *NA* (03/20/19 6:22 AM) 123 *NA* (03/16/19 9:30 AM) BUN/Creat Ratio HSL [5.0-20.0 ratio] 30.6 ratio *HI* (03/23/19 5:55 AM) 24.6 ratio *HI* (03/20/19 6:22 AM) 29.4 ratio *HI* (03/16/19 9:30 AM) Calcium Total HSL [8.9-10.3 mg/dL] 8.4 mg/dL *LOW* (03/23/19 5:55 AM) 8.2 mg/dL *LOW* (03/20/19 6:22 AM) 8.3 mg/dL *LOW* (03/16/19 9:30 AM) Albumin HSL [3.5-5.0 gm/dL] 2.5 gm/dL *LOW* (03/23/19 5:55 AM) 2.4 gm/dL *LOW* (03/20/19 6:22 AM) 2.0 gm/dL *LOW* (03/16/19 9:30 AM) Prealbumin HSL [18-38 mg/dL] 6 mg/dL *LOW* (03/11/19 6:45 AM) Protein Total HSL [6.5-8.1 gm/dL] 7.2 gm/dL (03/23/19 5:55 AM) 7.4 gm/dL (03/20/19 6:22 AM) 7.6 gm/dL (03/16/19 9:30 AM) Bilirubin Total HSL [0.30-1.20 mg/dL] 0.64 mg/dL (03/23/19 5:55 AM) 0.59 mg/dL (03/20/19 6:22 AM) 0.68 mg/dL (03/16/19 9:30 AM) Magnesium HSL [1.8-2.5 mg/dL] 1.5 mg/dL *LOW* (03/11/19 6:45 AM) Phosphorus HSL [2.5-4.6 mg/dL] 3.5 mg/dL (03/11/19 6:45 AM) Alkaline Phosphatase HSL [32-91 IU/L] 199 IU/L *HI* (03/23/19 5:55 AM) 188 IU/L *HI* (03/20/19 6:22 AM) 247 IU/L *HI* (03/16/19 9:30 AM) AST HSL [15-41 IU/L] 60 IU/L *HI* (03/23/19 5:55 AM) 58 IU/L *HI* (03/20/19 6:22 AM) 64 IU/L *HI* (03/16/19 9:30 AM) ALT HSL [17-63 IU/L] 51 IU/L (03/23/19 5:55 AM) 44 IU/L (03/20/19 6:22 AM) 33 IU/L (03/16/19 9:30 AM) 1Result Comment: Reference Range Low: <3.4 Borderline: 3.4-5.4 Normal: >5.4 Lab test performed by: Lab Mnemonic: [facility] [address] [place] [address] CASIMIRO ALEJANDRE MD 2Result Comment: Lab test performed by: Lab Mnemonic: [facility] [address] [place] [address] CASIMIRO ALEJANDRE MD 3Result Comment: Lab test performed by: Lab Mnemonic: [facility] [address] [facility] [place] [address] CASIMIRO ALEJANDRE MD 4Result Comment: For more information on this test, go to: http://education.[employer]/faq/VBI298 (This link is being provided for informational/educational purposes only.) 25-OHD3 indicates both endogenous production and supplementation. 25-OHD2 is an indicator of exogenous sources, such as diet or supplementation. Therapy is based on measurement of Total 25-OHD, with levels <20 ng/mL indicative of Vitamin D deficiency, while levels between 20 ng/mL and 30 ng/mL suggest insufficiency. Optimal levels are > or = 30 ng/mL. 5Result Comment: Reference Range Not established This test was developed and its analytical performance characteristics have been determined by [facility]. It has not been cleared or approved by the FDA. This assay has been validated pursuant to the CLIA regulations and is used for clinical purposes. 6Result Comment: Reference Range Not established This test was developed and its analytical performance characteristics have been determined by [facility]. It has not been cleared or approved by the FDA. This assay has been validated pursuant to the CLIA regulations and is used for clinical purposes. Lab test performed by: Lab Mnemonic: [facility] [place] [address] [place] [address] CASIMIRO ALEJANDRE MD Orders for Microbiology Reports Name Date Culture Urine HSL 03/11/19 Microbiology Reports TEST:Culture Urine HSL STATUS:Auth (Verified) BODY SITE: SOURCE:Urine COLLECTED DATE/TIME:03/10/19 5:30 PM FINAL REPORT No growth at 2 days. Vital Signs Most recent to oldest [Reference Range]: 1 2 3 Temperature Oral F [96.4-99.1 DegF] 97.5 DegF (03/25/19 7:42 AM) 98.5 DegF (03/24/19 7:43 PM) 98.4 DegF (03/24/19 7:39 AM) Peripheral Pulse Rate [60-100 bpm] 77 bpm (03/25/19 7:42 AM) 76 bpm (03/24/19 7:43 PM) 83 bpm (03/24/19 7:39 AM) Respiratory Rate [14-20 br/min] 18 br/min (03/25/19 7:42 AM) 18 br/min (03/24/19 7:43 PM) 16 br/min (03/24/19 7:39 AM) Blood Pressure [90-140/60-90 mmHg] 155/98mmHg *HI* (03/25/19 7:42 AM) 127/76mmHg (03/24/19 7:43 PM) 136/89mmHg (03/24/19 7:39 AM) Extremity used to obtain blood pressure Right Arm (03/25/19 7:42 AM) Right Arm (03/24/19 7:43 PM) Right Arm (03/24/19 7:39 AM) Cuff Size. Medium (03/25/19 7:42 AM) Medium (03/24/19 7:43 PM) Medium (03/24/19 7:39 AM) Temperature Oral [35.8-37.3 DegC] 36.6 DegC (03/16/19 2:37 PM) 36.9 DegC (03/10/19 8:22 PM) 36.9 DegC (03/10/19 4:25 PM)
--- OUTSIDE RECORDS SUMMARY | 2024-02-23 18:52 | XMS_ITS | Summary of Care ---
Author Organization [facility] Address [address] [place] [address]- Care Team Providers Care Ingot Car Operator Name Role Phone Erik Hurley Primary Care Physician Unavailab le Encounter 08/30/19 - 08/30/19 [facility] [address] [place] [address] Discharge Disposition: Discharged to Home or Self Care Attending Physician: Divya Conrad DO Admitting Physician: Divya Conrad DO Referring Physician: Divya Conrad DO Allergies, Adverse Reactions, Alerts Substance Reaction Severity Status penicillin Shortness of breath Active Medications ammonium lactate 12% topical lotion 1 harjeet, [...] Ordered Basaglar KwikPen 100 units/mL subcutaneous solution 38 units, Subcutaneous, QHS, 0 Refill(s) Start Date: 05/17/19 Status: Ordered cholecalciferol 1000 intl units oral tablet 2,000 IntlUnit = 2 tab, Tab, Oral, Daily, 60 tab, 0 Refill(s), Print Requisition Start Date: 03/23/19 Status: Ordered Cymbalta 60 mg oral delayed release capsule 60 mg = 1 cap, Cap-DR, Oral, Daily, 30 cap, 0 Refill(s), (do not crush or chew) Start Date: 05/17/19 Status: Ordered gabapentin 300 mg oral capsule 300 mg, 1 cap, Cap, Oral, TID, 90 cap, 0 Refill(s) Start Date: 08/30/19 Status: Ordered losartan 25 mg oral tablet 25 mg = 1 tab, Tab, Oral, Daily, 30 tab, 0 Refill(s), Print Requisition Start Date: 03/23/19 Status: Ordered Lyrica 150 mg oral capsule 150 mg = 1 cap, Cap, Oral, BID, 60 cap, 0 Refill(s), Print Requisition Start Date: 03/23/19 Status: Ordered Miscellaneous Non Medication See Instructions, L AKA, diabetic peripheral polyneuroapthy, K2 potential ambulator L AK socket, pin locking suspension system, stance control knee, dynamic response foot, 1, EA, 0 Refill(s), Maintenance, Print Requisition, Instructions Replace Req... Start Date: 05/17/19 Status: Ordered Multiple Vitamins oral tablet 1 [...] ADL impairment(Confirmed) Active Impaired mobility(Confirmed) Active Results LABORATORY Most recent to oldest [Reference Range]: 1 Estimated Creatinine Clearance 143.12 mL /min (08/30/19 1:54 PM) Vital Signs Most recent to oldest [Reference Range]: 1 Temperature Tympanic F [96.4-99.1 DegF] 98.7 DegF (08/30/19 1:40 PM) Peripheral Pulse Rate [60-100 bpm] 76 bp m (08/30/19 1:40 PM) Respiratory Rate [14-20 br/min] 20 br/mi n (08/30/19 1:40 PM) Blood Pressure [90-140/60-90 mmHg] 171/9 8mmHg *HI* (08/30/19 1:40 PM) Temperature Tympanic [35.8-37.3 DegC] 37 .1 DegC (08/30/19 1:40 PM)
--- OUTSIDE RECORDS SUMMARY | 2024-02-23 18:52 | XMS_ITS | Encounter Summary ---
Author Organization [facility] Address [address] [place] [address] Care Team Providers Care Corporate Director Talent Assessment Name Role Phone Provider, No Known Primary Care Provider Unavail able Encounter Details Date Type Department Care Team (Late st Contact Info) Description 04/06/2023 5:00 AM EST Outside Facility Service [facility] [address] [place] [address] Marcie Del Castillo MD [address] [place] [address] Social History Tobacco Use Types Packs/Day Years Used Date Smoking Tobacco: Every Day Cigarettes Smokeless Tobacco: Never Abuse Screen Answer Date Recorded Unsafe at Home or Work/School Not on file Feels Threatened by Someone? Not on file 01/2023 Does Anyone Keep You from Co ntacting Others or Doint Things Outside the Home? Not on file 01/06/2023 Physical Sign of Abuse Present Not on file 1 Housing Stability Answer Date Recorded Current Living Arrangements Not on file 12/27 Potentially Unsafe Housing Conditions Not on maia e 01/06/2023 Family and Community Support Answer Raf e Recorded Help with Day-to-Day Activities Not on file 01/06/2023 Lonely or Isolated Not on file 01/06/2023 Employment Answer Date Recorded Do you want help finding or keeping work or a yeny b? Not on file 01/06/2023 Disabilities Answer Date Recorded Concentrating, Remembering, or Making Decisions Difficulty Not on file 01/06/2023 Doing Errands Independently Difficulty Not on fi le 01/06/2023 Education Answer Date Recorded Help with school or training? Not on file 10 /01/2023 Preferred Language Not on file 01/06/2023 Sex and Gender Information Value Date Recorded Sex Assigned at Not on file Legal Sex Male 4:53 PM EDT Gender Identity Not on file Sexual Orientation Not on file documented as of this encounter Plan of Treatment Not on file documented as of this encounter Visit Diagnoses Not on filedocumented in this encounter Care Teams Corporate Director Talent Assessment Relationship Specialty Start Date End Date Provider, [place] [address] PCP - General 04/06/23 documented as of this encounter
--- OUTSIDE RECORDS SUMMARY | 2024-02-23 18:52 | XMS_ITS | Encounter Summary ---
[facility] Address [address] [place] [address] Care Team Providers Care Gluer Machine Operator Name Role Phone Randy Escalante MD Primary Care Provider Encounter Details Date Type Department Care Team (Late st Contact Info) Description 02/05/2023 5:00 AM EST Outside Facility Service [facility] CARD[facility]OLOG[facility] [address] [place] [address] Marcie Del Castillo MD [address] [place] [address] Social History Tobacco Use Types [...] with school or training? Not on file Preferred Language Not on file 01/06/2023 Sex and Gender Information Value Date Recorded Sex Assigned at Not on file Legal Sex Male 4:53 PM EDT Gender Identity Not on file Sexual Orientation Not on file documented as of this encounter Plan of Treatment Not on file documented as of this encounter Visit Diagnoses Not on filedocumented in this encounter Care Teams Gluer Machine Operator Relationship Specialty Start Date End Date Randy Escalante MD PCP - General Family Medicine 09/17/17 04/05/23 documented as of this encounter
--- OUTSIDE RECORDS SUMMARY | 2024-02-23 18:52 | XMS_ITS | Encounter Summary ---
Author Organization [facility] Address [address] [place] [address] Care Team Providers Care Certified Hyperbaric Technician Name Role Phone Randy Escalante MD Primary Care Provider Reason for Visit * Reason Onset Date Comments TAYO FERRARA APRN-- HOME HEALTH 02/12/2023 Encounter Details Date Type Department Care Team (Late st Contact Info) Description 02/12/2023 Telephone [facility] CARDIOLOGY [address] [place] [address] Tayo Ferrara APRN [address] [place] [address] TAYO FERRARA APRN-- HOME HEALTH Social History Tobacco Use Types Packs/Day Years [...] on file documented as of this encounter Miscellaneous Notes * Telephone Encounter - Alan Valdovinos CMA - 02/15/2023 1:18 PM EST LVM with Leia informing her that we have never seen this patient before, so our providers will be unable to sign anything for home health. * Telephone Encounter - Mariaelena Wilcox RegSched Rep - 02/12/2023 2:20 PM EST Caller: LEIA-[facility] Relationship: Other Best call back number: [phone] What is the best time to reach you: ANYTIME Who are you requesting to speak with (clinical staff, provider, specific staff member): CLINICAL What was the call regarding: LEIA WITH [facility] CALLED ASKING FOR TAYO FERRARA APRN TO CALL AND LET THEM KNOW IF TAYO FERRARA APRN WILL BE THE PHYSICAN THAT WILL BE AUTHORIZING AND SIGNING FOR PATIENT TO HAVE HOME HEALTH. PLEASE REACH OUT TO ANABEL WITH [facility]. PATIENT IS DISCHARGING FROM [facility] 02-12-23 Is it okay if the provider responds through MyChart: CALL documented in this encounter Plan of Treatment Not on file documented as of this encounter Visit Diagnoses Not on filedocumented in this encounter Care Teams Certified Hyperbaric Technician Relationship Specialty Start Date End Date Randy Escalante MD PCP - General Family Medicine 09/17/17 04/05/23 documented as of this encounter
--- OUTSIDE RECORDS SUMMARY | 2024-02-23 18:52 | XMS_ITS | Clinical Summary ---
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 Active aspirin 81 MG EC tablet Take 1 tablet (81 mg total) by mouth daily. Active isosorbide dinitrate (ISORDIL) 40 MG tablet Take 1 tablet (40 mg total) by mouth 3 (three) times daily. Active gabapentin (NEURONTIN) 600 MG tablet Take 1 tablet (600 mg total) by mouth 3 (three) times daily. Active furosemide (LASIX) 40 MG tablet Take 1 tablet (40 mg total) by mouth daily as needed (Edema). Active albuterol HFA (VENTOLIN HFA) 90 mcg/actuation inhaler Inhale 1 puff by mouth via inhaler every 6 (six) hours as needed for wheezing. Active hydrALAZINE (APRESOLINE) 50 MG tablet Take 1 tablet (50 mg total) by mouth 3 (three) times daily Look-alike/Sound -alike medication. Active insulin detemir U-100 (LEVEMIR) 100 unit/mL (3 mL) InPn injection Inject 0.13 mLs (13 Units total) subcutaneously nightly. Active Active Problems Patient Care Coordination No te Formatting of this note migh t be different from the original. CAD and PAD w/ CHR: s/p stents; asa 81mg qd, atorvastatin 80qhs, furosemide 40qd, isordil 40qd, metoprolol 25qd COPD: albuterol DM: levemir Neuropathy: jeanie 600 Depression: Problem Noted Date Diagnosed Date Acute blood loss anemia 11/10/2023 11/10/19 Anemia 11/10/2023 11/10/2023 Atypical angina 11/10/2023 11/10/2023 Degeneration of intervertebral disc 11/10/2023 11/10/2023 Encounter for general adult medical examination without abnormal findings 11/10/2023 11/10/2023 Flash pulmonary edema 11/10/2023 11/10/2023 Non-STEMI (non-ST elevated myocardial infarction ) 11/10/2023 11/10/2023 Peripheral arterial disease 11/10/202310/27 Shortness of breath 11/10/2023 11/10/2023 Status post above-knee amputation of left lower extremity 11/10/2023 11/10/2023 Stenosis of carotid artery 11/10/202311/09 Stented coronary artery 11/10/2023 11/10/19 Thoracic aortic aneurysm (TAA) 11/10/2023 0 11/10/2023 Acute on chronic diastolic CHF (congestive heart failure) 10/29/2023 LV dysfunction 09/29/2023 11/10/2023 Mixed hyperlipidemia 09/29/2023 11/10/2023 Acute on chronic congestive heart failure 202211/10/2023 HFrEF (heart failure with reduced ejection fract ion) 03/23/2023 11/10/2023 Acute respiratory failure with hypoxia 11/10/2023 Impaired mobility 03/11/2022 11/10/2023 Above-knee amputation 03/19/2020 11/10/2023 Elevated liver enzymes 01/17/2020 Hepatitis B 01/17/2020 11/10/2023 Arteriosclerosis of coronary artery 01/16/2020 11/10/2023 Body mass index 25.0-25.9, adult 01/16/2020 11/10/2023 COPD with emphysema 01/16/2020 11/10/2023 Depression 01/16/2020 11/10/2023 Diabetic neuropathy 01/16/2020 11/10/2023 Myocardial injury 01/16/2020 11/10/2023 Presence of other cardiac implants and grafts 11/10/2023 Type 2 diabetes mellitus 01/16/2020 024 Immunizations Name Administration Dates Next Due Hepatitis A Adult 07/07/2018 Influenza Four-qiv Pf 03/08/2020,03/02/2017 Influenza Three-tiv Pf 04/13/2015 PPD Test 08/04/2018,07/27/2017,07/24/2016 Pneumococcal Polysaccharide (Pneumovax) 03/02/2017(Deferred: Patient Refused),04/13/2015 Social History Tobacco Use Types Packs/Day Years Used Date Smoking Tobacco: Every Day Cigarettes Smokeless Tobacco: Never Tobacco Cessation:Ready to Q uit: Not Asked; Counseling Given: Not Answered Alcohol Use Standard Drinks/Week Comments Not Currently 0 (1 standard drink = 0.6 oz pur e alcohol) Utilities Answer Date Recorded In the past 12 months, has t he electric, gas, oil, or water company threatened to shut off services in your home? No 10/29/2023 Interpersonal Safety Answer Date Record ed How often does anyone, angelica ybarra family and friends, physically hurt you? Never 10/29/2023 How often does anyone, angelica ybarra family and friends, insult or talk down to you? Never 10/29/2023 How often does anyone, angelica ybarra family and friends, threaten you with harm? Never 10/29/2023 How often does anyone, angelica ybarra family and friends, scream or curse at you? Never 10/29/2023 Housing Stability Answer Date Recorded What is your living situation today? I have a [facility] place to live 10/29/[address] you li ve. Do you have problems with any of the following? None of the above 10/29/2023 Food Insecurity Answer Date Recorded Within the past 12 months, y ou worried that your food would run out before you got money to buy more. Sometimes true 2023 Within the past 12 months, t he food you bought just didn't last and you didn't have money to get more. Never true 04/2023 Transportation Needs Answer Date Record ed In the past 12 months, has l ack of reliable transportation kept you from medical appointments, meetings, work or from getting things needed for daily living? Yes 10/29/2023 Financial Resource Strain Answer Date R ecorded How hard is it for you to pa y for the very basics like food, housing, medical care, and heating? Would you say it is: Somewhat hard 10/29/2023 Employment Answer Date Recorded Do you want help finding or keeping work or a job? I do not need or want help 10/29/2023 Family and Community Support Answer Raf e Recorded If for any reason you need h elp with day-to-day activities such as bathing, preparing meals, shopping, managing finances, etc., do you get the help you need? I don't need any help 10/29/2023 Feeling Lonely or Isolated 0 10/28 Educational Attainment Answer Date Melo rded Do you speak a language other than Moroc[place] at [facility]? No 10/29/2023 Do you want help with school or training? For example, starting or completing job training or getting a high school diploma, GED or equivalent. No 10/29/2023 Physical Activity Answer Date Recorded Number of minutes of exercise per week 0 10/29/2023 Alcohol Use Answer Date Recorded 5 or More Drinks Per Day Past 12 Months 0 02/12/2024 Depression Answer Date Recorded Calculation of above two rows 0 Stress Answer Date Recorded Stress means a situation in which a person feels tense, restless, nervous, or anxious, or is unable to sleep at night because his or her mind is troubled all the time. Do you feel this kind of stress these days? Not at all 10/29/2023 Disabilities Answer Date Recorded Because of a physical, menta l, or emotional condition, do you have serious difficulty concentrating, remembering, or making decisions? (5 years or older) No 10/29/2023 Because of a physical, menta l, or emotional condition, do you have difficulty doing errands alone such as visiting a doctor's office or shopping? (15 years or older) Yes 10/29/2023 Substance Use Answer Date Recorded How many times in the past y ear have you used prescription drugs for non-medical reasons? Never 10/29/2023 How many times in the past year have you used [place] legal drugs? Never 10/29/2023 Sex and Gender Information Value Date Recorded Sex Assigned at Not on file Legal Sex Male 5:33 PM CDT Gender Identity Not on file Sexual Orientation Not on file Last Filed Vital Signs Vital Sign Reading Time Taken Comments Blood Pressure 130/84 11/08/2023 2:10 PM EDT Pulse 68 11/08/2023 2:10 PM EDT Temperature 36.6 ??C (97.9 ??F) 11/08/2023 1 2:25 PM EDT Respiratory Rate 18 11/08/2023 12:2 5 PM EDT Oxygen Saturation 100% 11/08/2023 12: 25 PM EDT Inhaled Oxygen Concentration - - Weight 80.7 kg (177 lb 14.6 oz) 11/07/2023 4:00 AM EDT Height 185.4 cm (6' 1 ) 10/29/2023 2:38 PM EDT Body Mass Index 23.47 10/29/2023 2:38 PM EDT Plan of Treatment Health Maintenance Due Date Last Done Comments CT Colonography 1967 Colonoscopy 1967 Colorectal Cancer Screening 1967 FOBT/FIT 1967 Fit-DNA (Cologuard) 1967 Sigmoidoscopy 1967 Diabetic Eye Exam 05/29/1977 Diabetic foot exam 05/29/1977 HIV Screening 05/29/1982 Hepatitis C Screening 05/29/1985 DTAP/TDAP/TD VACCINES (1 - Tdap) 05/29/1986 Pneumococcal Vaccine: 0-64 Y ears (2 of 2 - PCV) 04/13/2016 04/13/2015 Shingles Vaccine (Zoster) (1 of 2) 05/29/2017 Medicare Initial AWV [id number] 08/28/2022 Hemoglobin A1C 11/10/2023 COVID-19 VACCINE (2 - 2023- season) 2023 Influenza Vaccine (#1) 2023 Tobacco Cessation Counseling and Screening (12+) 10/28/2024 10/29/2023 Lipid Panel 10/29/2026 10/30/2023, 06/16/2023 Procedures Procedure Name Priority Date/Time Associated Diagnosis Comments LIPID PANEL Add-On 10/30/2023 4:39 AM EDT from Last 3 Months or Most Recently Relevant to Health Maintenance Results * (ABNORMAL) Lipid panel (10/30/2023 4:39 AM EDT) Triglycerides 120 0 - 249 mg/dL 10/30/2023 10:14 AM EDT [facility] Cholesterol 195 0 - 199 mg/dL 10/30/2023 10:14 AM EDT [facility] Comment: 200 to 239 mg/dL = ??Moderate (borderline) >239 mg/dL ? = ??High HDL 56 >=40 mg/dL 10/30/2023 10:14 AM EDT [facility] Comment: >=60 mg/dL = Desirable <40 mg/dL ??= Increased Risk All other components are listed individually or are calculations VLDL 24 5 - 40 mg/dL 10/30/2023 10:14 AM EDT [facility] Cholesterol/HDL ratio 3.5(H) 0.0 - 3.2 10/30/2023 10:14 AM EDT [facility] LDl/HDL Ratio 2 0 - 4 10/30/2023 10:14 AM EDT [facility] RISK COMP 3 10/30/2023 10:14 AM EDT [facility] LDL Cholesterol, Calculated 115(H) 0 - 99 mg/dL 10/30/2023 10:14 AM [facility] Blood Venipuncture / Unknown 10/30/2023 4:39 AM EDT 10/30/2023 5:25 AM EDT Everett Reed APRN LAB BLOOD ORDERABLES Final Result [facility] [address] [phone] from Last 3 Months or Most Recently Relevant to Health Maintenance Insurance MEDICAID OF [place] MEDICARE PART A B Advance Directives For more information, please contact: [phone] * Full Code (Latest Code Status on File) Date Activated Date Inactivated Comments 12/08/2023 8:20 PM * Full Code Date Activated Date Inactivated Comments 10/29/2023 3:09 PM 11/08/2023 4:20 PM
--- OUTSIDE RECORDS SUMMARY | 2024-02-23 18:52 | XMS_ITS | Referral Summary ---
Author Organization [employer] Address [address] [place] [address] Care Team Providers Care Waste Specialist Name Role Phone Unavailable Primary Care Provider [...] your living situation today? I have a [facility] place to live 10/29/2023 Think about [...] Do you speak a language other than [place] [facility]? No 10/29/2023 Do you want help with [...] Mass Index 23.47 10/29/2023 2:38 PM EDT Functional Status * Are you deaf or do you have serious difficulty hearing? Answer Date of Assessment Author No 11/08/2023 1:05 PM CDT Thais Lopez RN * Are you blind or do you have serious difficulty seeing, even when wearing glasses? Answer Date of Assessment Author No 11/08/2023 1:05 PM CDT Thais Lopez RN * Do you have serious difficulty walking or climbing stairs? Answer Date of Assessment Author Yes 11/08/2023 1:05 PM CDT Thais Lopez RN * Do you have serious difficulty dressing or bathing? Answer Date of Assessment Author No 11/08/2023 1:05 PM VIOLETAT Thais Lopez RN * Because of a physical, mental, or emotional condition, do you have serious difficulty doing errandsalone such as visiting the doctor? Answer Date of Assessment Author Yes 11/08/2023 1:05 PM CDT Thais Lopez RN Mental Status * Because of a physical, mental, or emotional condition, do you have serious difficulty concentrating, remembering, or making decisions? (5 years old or older) Answer Entry Date Author Yes 11/08/2023 1:05 PM Thais Butt RN Plan of Treatment Not on file Procedures Procedure Name Priority Date/Time Associated Diagnosis Comments LIPID PANEL Add-On 10/30/2023 4:39 AM EDT from Last 3 Months or Most Recently Relevant to Health Maintenance Results * (ABNORMAL) Lipid panel (10/30/2023 4:39 AM EDT) Triglycerides 120 0 - 249 mg/dL 10/30/2023 10:14 AM EDT [facility] Cholesterol 195 0 - 199 mg/dL 10/30/2023 10:14 AM EDT [facility] Comment: 200 to 239 mg/dL = ??Moderate (borderline) >239 mg/dL ? = ??High HDL 56 >=40 mg/dL 10/30/2023 10:14 AM EDT [facility] Comment: >=60 mg/dL = Desirable <40 mg/dL ??= Increased Risk All other components are listed individually or are calculations VLDL 24 5 - 40 mg/dL 10/30/2023 10:14 AM EDT [facility] Cholesterol/HDL ratio 3.5(H) 0.0 - 3.2 10/30/2023 10:14 AM EDT [facility] LDl/HDL Ratio 2 0 - 4 10/30/2023 10:14 AM EDT [facility] RISK COMP 3 10/30/2023 10:14 AM EDT [facility] LDL Cholesterol, Calculated 115(H) 0 - 99 mg/dL 10/30/2023 10:14 AM [facility] Blood Venipuncture / Unknown 10/30/2023 4:39 AM EDT 10/30/2023 5:25 AM EDT Everett Reed APRN LAB BLOOD ORDERABLES Final Result [facility] [address] [place] [address], [facility] [phone] from Last 3 Months or Most Recently Relevant to Health Maintenance Insurance MEDICAID OF [place] MEDICARE PART A B Advance Directives For more information, please contact: [phone] * Full Code (Latest Code Status on File) Date Activated Date Inactivated Comments 12/08/2023 8:20 PM * Full Code Date Activated Date Inactivated Comments 10/29/2023 3:09 PM 11/08/2023 4:20 PM
--- OUTSIDE RECORDS SUMMARY | 2024-02-23 18:52 | XMS_ITS | Clinical Summary ---
Author Organization [facility] Address [address] [place] [address] Care Team Providers Care Medical Field Representative Name Role Phone Provider, No Known Primary Care Provider Unavail able Allergies No known active allergies Medications metoprolol succinate XL (TOPROL-XL) 50 MG 24 hr tablet Take 50 mg by mouth Daily. Active tiZANidine (ZANAFLEX) 4 MG tablet Take 4 mg by mouth At Night As Needed for Muscle Spasms. Active isosorbide mononitrate (IMDUR) 60 MG 24 hr tablet Take 60 mg by mouth Daily. Active atorvastatin (LIPITOR) 80 MG tablet Take 80 mg by mouth Daily. Active lisinopril (PRINIVIL,ZESTRIL ) 20 MG tablet Take 20 mg by mouth Daily. Active DULoxetine (CYMBALTA) 60 MG capsule Take 60 mg by mouth Daily. Active rOPINIRole (REQUIP) 0.5 MG tablet Take 0.5 mg by mouth Every Night. Take 1 hour before bedtime. Active nitroglycerin (NITROSTAT) 0.[address] 0.4 mg under the tongue Every 5 (Five) Minutes As Needed for Chest Pain. Take no more than 3 doses in 15 minutes. Active amLODIPine (NORVASC) 10 MG tablet Take 10 mg by mouth Daily. Active fenofibrate micronized (LOFIBRA) 134 MG capsule Take 134 mg by mouth Every Morning Before Breakfast. Active Fluticasone Furoate-Vilantero l (BREO ELLIPTA IN) Inhale. Active FLUoxetine (PROzac) 20 MG capsule Take 20 mg by mouth Daily. 8 Active gabapentin (NEURONTIN) 600 MG tablet Take 600 mg by mouth. 8 Active metFORMIN ER (GLUCOPHAGE-XR) 500 MG 24 hr tablet Take 500 mg by mouth 2 (Two) Times a Day. 8 Active LYRICA 150 MG capsule Take 150 mg by mouth 2 (Two) Times a Day. 8 Active aspirin 325 MG tablet Take 325 mg by mouth Daily. Active clindamycin (CLEOCIN) 300 MG capsule Take 300 mg by mouth 3 (Three) Times a Day. Active clopidogrel (PLAVIX) 75 MG tablet Take 75 mg by mouth Daily. Active diazePAM (VALIUM) 10 MG tablet Take 10 mg by mouth 2 (Two) Times a Day As Needed for Anxiety. Active insulin regular (humuLIN R,novoLIN R) 100 UNIT/ML injection Inject under the skin 3 (Three) Times a Day Before Meals. Active Empagliflozin (JARDIANCE PO) Take 10 mg by mouth. Active potassium chloride (K-DUR,KLOR-CON) 20 MEQ CR tablet Take 20 mEq by mouth 2 (Two) Times a Day. Active HUMULIN R U-500 KWIKPEN 500 UNIT/ML solution pen-injector CONCENTRATED injection 3 9 Active Active Problems No known active problems Immunizations Name Administration Dates Next Due PPD Test 08/04/2018,07/27/2017,07/24/2016 Family History 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 Relation Name Comments Cancer Father Hypertension Mother Relation Name Status Comments Father Mother Social History Tobacco Use Types Packs/Day Years [...] Sign Reading Time Taken Comments Blood Pressure - - Pulse - - Temperature 36.6 ??C (97.9 ??F) 09/17/2017 11:30 AM E DT Respiratory Rate - - Oxygen Saturation - - Inhaled Oxygen Concentration - - Weight 103 kg (228 lb) 09/17/2017 11:30 AM EDT Height 182.9 cm (6') 09/17/2017 11:30 AM EDT Body Mass Index 30.92 09/17/2017 11:30 AM EDT Plan of Treatment Health Maintenance Due Date Last Done Comments COLOGUARD 1965 COLON CANCER SCREENING 5 BELÉN R SIGMOIDOSCOPY 1967 COLONOSCOPY 1967 COL[address]ECTAL CANCER SCREENING 1967 CT COLONOGRAPHY 1967 FECAL OCCULT BLOOD TEST 1967 FIT Testing (1 year) 1967 Pneumococcal Vaccine 0-64 (1 of 2 - PCV) 05/29/1973 TDAP/TD VACCINES (1 - Tdap) 05/29/1986 ANNUAL PHYSICAL 07/24/2016 ZOSTER VACCINE (1 of 2) 05/29/2017 INFLUENZA VACCINE 10/28/2023 03/08/2020, , 04/13/2015 COVID-19 Vaccine ( season) 2023 LIPID PANEL 12/16/2024 12/17/2023, 06/16/2023 HEPATITIS C SCREENING Completed 02/03/2023 Insurance MEDICARE A ONLY [place]ICAID [place] Care Teams Medical Field Representative Relationship Specialty Start Date End Date Provider, No Known [facility] [place] [address] PCP - General 04/06/23
--- OUTSIDE RECORDS SUMMARY | 2024-02-23 18:52 | XMS_ITS | Encounter Summary ---
Author Organization [facility] Address [address] [place] [address] Care Team Providers Care Social Science Professor Name Role Phone Randy Escalante MD Primary Care Provider Reason for Visit * Consultation (Routine) - Closed Specialty Diagnoses / Procedures Referred By Neno noel Referred To Contact Neurosurgery Diagnoses DDD (degenerative disc disease), lumbar Protruded lumbar disc Procedures CONSULT Randy Escalante MD Phone: tel: fax: Jesus Israel MD [address] [place] [address] Phone: tel: fax: Referral ID Status Reason Start Date Expiration Date Visits Re quested Visits Authorized [id number] Closed 08/21/2017 08/21/2018 1 1 Encounter Details Date Type Department Care Team (Late st Contact Info) Description 09/17/2017 11:30 AM EDT Office Visit [facility] [address] [place] [id number] Jesus Israel MD [address] [place] [address] Lumbar radiculopathy (Primary Dx); Bulging lumbar disc; Numbness in both legs; Degenerative disc disease, lumbar; Facet arthritis of lumbar region (CMS/HCC) Social History Tobacco Use Types Packs/Day Years Used Date Smoking Tobacco: Every Day Cigarettes Smokeless Tobacco: Never Sex and Gender Information Value Date Recorded Sex Assigned at Not on file Legal Sex Male 4:53 PM EDT Gender Identity Not on file Sexual Orientation Not on file documented as of this encounter Last Filed Vital Signs Vital Sign Reading [...] Mass Index 30.92 09/17/2017 11:30 AM EDT documented in this encounter Progress Notes * Jesus Israel MD - 09/17/2017 11:30 AM EDT Patient: Buzz Hurley : 1965 Primary Care Provider: Randy Escalante MD Requesting Provider: As above History Chief Complaint: Back and left leg pain. 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 As of late he is starting have some symptoms in his right thigh. He has undergone chiropractic treatment and physical therapy. He was treated in pain management but injections were avoided given his diabetes. His symptoms are worse at night. Nothing really makes them better. He is worse with walking. He has a stocking distribution numbness that he attributes to his neuropathy. He deniesbowel or bladder dysfunction. He smokes heavily despite a number of medical comorbidities. Apparently he was discharged from the pain clinic given that he missed a pill count. Review of Systems Constitutional: Positive for activity change and fatigue. Negative for appetite change, chills, diaphoresis, fever and unexpected weight change. HENT: Negative for congestion, dental problem, drooling, ear discharge, ear pain, facial swelling, hearing loss, mouth sores, nosebleeds, postnasal drip, rhinorrhea, sinus pressure, sneezing, sore throat, tinnitus, trouble swallowing and voice change. Eyes: Negative for photophobia, pain, discharge, redness, itching and visual disturbance. Respiratory: Positive for apnea and shortness of breath. Negative for cough, choking, chest tightness, wheezing and stridor. Cardiovascular: Negative for chest pain, palpitations and leg swelling. Gastrointestinal: Negative for abdominal distention, abdominal pain, anal bleeding, blood in stool,constipation, diarrhea, nausea, rectal pain and vomiting. Endocrine: Negative for cold intolerance, heat intolerance, polydipsia, polyphagia and polyuria. Genitourinary: Negative for decreased urine volume, difficulty urinating, dysuria, enuresis, flank pain, frequency, genital sores, hematuria and urgency. Musculoskeletal: Positive for back pain, myalgias and neck pain. Negative for arthralgias, gait problem, joint swelling and neck stiffness. Skin: Negative for color change, pallor, rash and wound. Allergic/Immunologic: Negative for environmental allergies, food allergies and immunocompromised state. Neurological: Positive for numbness. Negative for dizziness, tremors, seizures, syncope, facial asymmetry, speech difficulty, weakness, light-headedness and headaches. Hematological: Negative for adenopathy. Does not bruise/bleed easily. Psychiatric/Behavioral: Positive for dysphoric mood and sleep disturbance. Negative for agitation, behavioral problems, confusion, decreased concentration, hallucinations, self-injury and suicidal ideas. The patient is not nervous/anxious and is not hyperactive. The patient's past medical history, past surgical history, family history, and social history have been reviewed at length in the electronic medical record. Physical Exam: Temp 97.9 ??F (36.6 ??C) Ht 182.9 cm (72 ) Wt 103 kg (228 lb) BMI 30.92 kg/m?? CONSTITUTIONAL: Patient is well-nourished, pleasant and appears older than his stated age. CV: Heart regular rate and rhythm without murmur, rub, or gallop. PULMONARY: Lungs are clear to ascultation. MUSCULOSKELETAL: Straight leg raising is negative. Rom's Sign is negative. ROM in back is limited in all directions. Tenderness in the back to palpation is not observed. NEUROLOGICAL: Orientation, memory, attention span, language function, and cognition have been examined and are intact. Strength is intact in the lower extremities to direct testing. Muscle tone is normal throughout. Station and gait are normal. Sensation is intact to light touch testing except in a stocking distribution where it is diminished. Deep tendon reflexes are difficult to elicit throughout. Coordination is intact. Medical Decision Making Data Review: Lumbar MRI dated 04/09/17 demonstrates some disc bulging into the recess and proximal foramen on theleft at what I'm calling L4-5. Diagnosis: Mechanical low back pain due to degenerative disc disease and possibly some degree of radiculopathy. Treatment Options: I'm going to set up electrodiagnostic studies of both lower extremities as well as a lumbar CT myelogram to see whether there is actual nerve root compromise. Given his medical comorbidities he is not an optimal surgical candidate although it's probably not out of the question. Diagnosis Plan 1. Lumbar radiculopathy 2. Bulging lumbar disc 3. Numbness in both legs EMG & Nerve Conduction Test 4. Degenerative disc disease, lumbar 5. Facet arthritis of lumbar region Scribed for Jesus Israel MD by Kely Pinzon CMA on 09/17/2017 at 11:04 AM I, Dr. Israel, personally performed the services described in the documentation, as scribed in my presence, and it is both accurate and complete. documented in this encounter Plan of Treatment Not on file documented as of this encounter Visit Diagnoses Diagnosis Lumbar radiculopathy- Primary Thoracic or lumbosacral neuritis or radiculitis, unspecified Bulging lumbar disc Numbness in both legs Disturbance of skin sensation Degenerative disc disease, lumbar Facet arthritis of lumbar region documented in this encounter Care Teams Social Science Professor Relationship Specialty Start Date End Date Randy Escalante MD PCP - General Family Medicine 09/17/17 04/05/23 documented as of this encounter
--- OUTSIDE RECORDS SUMMARY | 2024-02-23 18:52 | XMS_ITS | Encounter Summary ---
Author Organization [facility] Address [address] [place] [address] Care Team Providers Care Ream Cutter Name Role Phone Randy Escalante MD Primary Care Provider Reason for Visit * Reason Comments TB Test Encounter Details Date Type Department Care Team (Latest Contact Info) Description 08/04/2018 9:15 AM EDT Clinical Support [facility] [address] [place] [address] Visit for TB skin test (Primary Dx) Social History Tobacco Use Types Packs/Day Years Used Date Smoking Tobacco: Every Day Cigarettes Smokeless Tobacco: Never Sex and Gender Information Value Date Recorded Sex Assigned at Not on file Legal Sex Male 4:53 PM EDT Gender Identity Not on file Sexual Orientation Not on file documented as of this encounter Progress Notes * Mushtaq Lockwood APRN - 08/04/2018 9:15 AM EDT Patient presents to clinic with request for a TB skin test. Denies any previous positive test. Denies any current steroid use. documented in this encounter Plan of Treatment Not on file documented as of this encounter Procedures Procedure Name Priority Date/Time Associated Diagnosis Comments POCT TB SKIN TEST Routine 08/06/2018 9:0 2 AM EDT Visit for TB skin test documented in this encounter Results * TB Skin Test (08/06/2018 9:02 AM EDT) TB Skin Test Negative [facility] Induration 0 0 - 10 mm [facility] Injection Date & Time 08/04/18 9am [facility] Read Date & Time 08/06/18 9:02 am [facility] Blood 08/06/2018 9:02 AM EDT us Mushtaq Mandie V, SENIOR MANAGER [employer]ALITY [employer]URANCE POINT OF CARE TEST ORDERABL ES Final Result [facility]
[address] [place] [address], documented in this encounter Visit Diagnoses Diagnosis Visit for TB skin test- Primary documented in this encounter Care Teams Ream Cutter Relationship Specialty Start Date End Date Randy Escalante MD PCP - General Family Medicine 09/17/17 04/05/23 documented as of this encounter
--- OUTSIDE RECORDS SUMMARY | 2024-02-23 18:52 | XMS_ITS | Summary of Care ---
Author Organization [facility] Address [address] [place] [address]- Care Team Providers Care Jailer Chief Name Role Phone Erik Hurley Primary Care Physician Unavailab le Encounter 05/17/19 - 05/17/19 [facility] [address] [place] [address] Discharge Disposition: Discharged to [...] or chew) Start Date: 05/17/19 Status: Ordered losartan 25 mg oral tablet [...] oldest [Reference Range]: 1 Estimated Creatinine Clearance 143.15 mL /min (05/17/19 1:30 PM) Vital Signs Most recent to oldest [Reference Range]: 1 Peripheral Pulse Rate [60-100 bpm] 83 bp m (05/17/19 1:13 PM) Blood Pressure [90-140/60-90 mmHg] 154/9 7mmHg *HI* (05/17/19 1:13 PM)
--- OUTSIDE RECORDS SUMMARY | 2024-02-23 18:52 | XMS_ITS | Encounter Summary ---
Author Organization [facility] Address [address] [place] [address] Care Team Providers Care Truck Driver Heavy Name Role Phone Unavailable Primary Care Provider Unavailabl e Reason for Visit * Reason Comments TB Test Encounter Details Date Type Department Care Team (Late st Contact Info) Description 07/24/2016 5:00 PM EDT Office Visit [facility] [address] [place] [address] Visit for TB skin test (Primary Dx) Social History Tobacco Use Types Packs/Day Years Used Date Smoking Tobacco: Never Assessed Sex and Gender Information Value Date Recorded Sex Assigned at Not on file Legal Sex Male 4:53 PM EDT Gender Identity Not on file Sexual Orientation Not on file documented as of this encounter Progress Notes * Mushtaq Lockwood APRN - 07/24/2016 5:00 PM EDT Patient presents to clinic with request for a TB skin test. Denies any previous positive test. Denies any current steroid use. documented in this encounter Plan of Treatment Not on file documented as of this encounter Visit Diagnoses Diagnosis Visit for TB skin test- Primary documented in this encounter
--- OUTSIDE RECORDS SUMMARY | 2024-02-23 18:52 | XMS_ITS | Encounter Summary ---
Author Organization [facility] Address [address] [place] [address] Care Team Providers Care Weave Room Supervisor Name Role Phone Unavailable Primary Care Provider Unavailabl e Reason for Visit * Reason Comments TB Test Encounter Details Date Type Department Care Team (Latest Contact Info) Description 07/27/2017 4:00 PM EDT Clinical Support [facility] [address] [place] [address] Visit for TB skin test (Primary Dx) Social History Tobacco Use Types Packs/Day Years Used Date Smoking Tobacco: Never Assessed Sex and Gender Information Value Date Recorded Sex Assigned at Not on file Legal Sex Male 4:53 PM EDT Gender Identity Not on file Sexual Orientation Not on file documented as of this encounter Progress Notes * Holly Livingston APRN - 07/27/2017 4:00 PM EDT Patient presents to clinic with request for a TB skin test. Denies any previous positive test. Denies any current steroid use. documented in this encounter Plan of Treatment Not on file documented as of this encounter Procedures Procedure Name Priority Date/Time Associated Diagnosis Comments POCT TB SKIN TEST Routine 07/29/2017 2:4 5 PM EDT Visit for TB skin test documented in this encounter Results * TB Skin Test (07/29/2017 2:45 PM EDT) [facility] Signature TB Skin Test Negative [facility] Induration 0 0 - 10 mm [facility] Blood 07/29/2017 2:45 PM EDT Holly Livingston VISCERA WASHER POINT OF CARE TEST OR DERABLES Final Result [facility]
[address] [place] [address], documented in this encounter Visit Diagnoses Diagnosis Visit for TB skin test- Primary documented in this encounter
--- OUTSIDE RECORDS SUMMARY | 2024-02-23 18:52 | XMS_ITS | Summary of Care ---
Author Organization [facility] Address [address] [place] [address]- Care Team Providers Care Applications Development Consultant Name Role Phone Xavi Erik Primary Care Physician Unavailab le Encounter 09/11/19 - 09/20/19 [facility] [address] [place] [address] Discharge Disposition: Home with Home Health Care Attending Physician: Divya Conrad DO Admitting Physician: Divya Conrad DO Referring Physician: Divya Conrad DO Allergies, Adverse Reactions, Alerts Substance Reaction Severity Status penicillin Shortness of breath Active Assessment and Plan Extracted from: Title:Inpatient Clinical Summary Author:Silvio Elias Date:09/19/19 [facility] [address] [facility] [place] [id number] Clinical Discharge Summary PERSON INFORMATION Name ROBERT HURLEY [id number] Sex Male Age 54 Years Race White Admitted 09/11/2019 10:55:00 Discharged [address]: [address] [place] [address] PROVIDER INFORMATION Attending Physician: Divya Conrad DO Consulting Physician: DIAGNOSIS Current Vitals Temp Oral: 98.4 DegF Temp Tympanic: Temp Axillary: Temp Rectal: SPO2 : 95 % Respiratory Rate: 19 br/min Peripheral Pulse Rate: 84 bpm Apical Heart Rate: Blood Pressure: 132 mmHg / 85 mmHg Discharge Orders ??Order Name Order Details : Electronically Signed By: Discharge Followup 09/11/19 12:37:00 EDT, Dr. Leon in 4-6 weeks after discharge from Alfred Ruiz MD Discharge Followup 09/11/19 12:37:00 EDT, PCP days of discharge from Alfred Ruiz MD MEDICAL INFORMATION Allergy Info: penicillin Medications: ammonium??lactate??topical??(ammonium??lactate??12%??topical??lotion) 1??Application??Topical??Two??Times??Per??Day.??Refills:??1. aspirin??(aspirin??81??mg??oral??tablet,??chewable) 1??tab(s)??Oral??every??day.??Refills:??1. atorvastatin??(atorvastatin??80??mg??oral??tablet) 1??tab(s)??Oral??every??day.??Refills:??1. cetirizine??(cetirizine??10??mg??oral??tablet) 1??tab(s)??Oral??every??day., Look??Alike??Sound??Alike??(LASA) cholecalciferol??(cholecalciferol??1000??intl??units??(25??mcg)??oral??tablet) 2??tab(s)??Oral??every??day.??Refills:??1. gabapentin??(gabapentin??300??mg??oral??capsule) 1??cap??Oral??3??times??a??day.??Refills:??1. insulin??aspart??(insulin??aspart??100??units/mL??injectable??solution) Standard??Subcutaneous??four??times??a??day??(with??meals??&??at??bedtim.??For?? BS??<200??=??0??U BS??200-250??=??2??U BS??251-300??=??4??U?? BS??301-350??=??6??U BS??>350??=??8??U.??Refills:??1. insulin??aspart??(insulin??aspart??100??units/mL??injectable??solution) 15??unit(s)??Subcutaneous??3??times??a??day??after??meals.??Hold??if??patient??d oes??not??complete??at??least??50%??of??meal..??Refills:??1. insulin??detemir??(insulin??detemir??100??units/mL??subcutaneous??solution) 42??unit(s)??Subcutaneous??once??a??day??(at??bedtime).??Refills:??1. ketoconazole??topical??(ketoconazole??2%??topical??shampoo) 1??Application??Topical??every??day??for??14??Days.??Refills:??0. Taking??For:??Empiric??Therapy losartan??(losartan??25??mg??oral??tablet) 1??tab(s)??Oral??every??day.??Refills:??1. magnesium??oxide??(magnesium??oxide??400??mg??(240??mg??elemental??magnesium)??o ral??tablet) 1??tab(s)??Oral??every??day. Miscellaneous??Non-Medication??(Miscellaneous??Non??Medication) adequate??quantity??of??lancets??and??test??strips??for??insulin??sliding??scale ??ACHS??for??30??days..??Refills:??0. Miscellaneous??Non-Medication??(Miscellaneous??Non??Medication) adequate??quantity??of??insulin??needles??and??syringes??for??TID??postprandial? ?insulin,??sliding??scale??ACHS,??and??long- acting??QHS??for??30??days..??Refills:??0. Miscellaneous??Non-Medication??(Miscellaneous??Non??Medication) Glucometer..??Refills:??0. multivitamin??(Multiple??Vitamins??oral??tablet) 1??tab(s)??Oral??every??day??for??30??Days.??Refills:??1. traZODone??(traZODone??50??mg??oral??tablet) 1??tab(s)??Oral??once??a??day??(at??bedtime)., Look??Alike??Sound??Alike??(LASA)?Do??Not??Crush.?Swallow? ?whole;??tablets??may??be??broken??in??half??at??the??score??line. Patient Care Team Discharge Instructions: 09/19/19 16:22 EDT Performed by Tasha DACOSTA, Alfred Sheikh Physician Discharge Instructions Home Health Services Physical Therapy: Yes Occupational Therapy: Yes Activity/Driving Restrictions Driving: No Work: No PowerTools: No Ladders: No MD Diet Instructions: Continue recommended diet. Other Instructions: Take medications as prescribed. Follow up with doctors as scheduled. Follow up with PCP or board certified arts therapist soon for DM check as your meds were adjusted while at . Other Instructions 2: Continue fall precautions. Refer to therapy note(s) for activity recommendations and restrictions. 09/19/19 14:53 EDT Performed by Shae Hurst OT Updated on 09/19/19 23:21 EDT by Silvio Pryor PT Continuity of Care Patient/Family Goal and Desired Outcome: to learn to walk Emergency Contacts GRID Emergency Name-Emergency Saurabh Hurley Relationship to Patient-Emergency brother Primary Phone #-Emergency [phone] Device Type-Emergency Mobile Allergies Allergy / Reaction penicillin Shortness of breath Self Care Self Care Grid [id number] Eating: Ind GT6666 Oral Hygiene: Ind HF5591 Toileting Hygiene: Ind RC9745 Toilet Transfer: Ind NH7824 Upper Body Dressing: Ind WY1664 Lower Body Dressing: Ind JN1063 Putting On, Taking Off Footwear: Ind MU8958 Shower, Bathe Self: Ind Additional Self Care Grid Wash/Dry hands Functional Status: Ind Wash/Dry face Functional Status: Ind Comb/[place] hair Functional Status: Ind Tub/Shower Transfer: Ind NX0061 Expression of Ideas and Wants: Expresses w/o difficulty & with clear speech - 4 RN1608 Understanding Verbal Content: Understands -4 Cognitive Functional Goals Grid Attention - OT: Independent Short Term Memory - OT: Independent Safety Awareness/Insight - OT: Independent Simple Problem Solving - OT: Independent Complex Problem Solving - OT: Independent Reviewed Basic ADL's: Yes DME OT OT Equipment Anticipated, Recommended: None OT Equipment Issued: None OT Recommendations IP Patient Impairments/Limitations-OT: Balance deficits, Impaired activity tolerance, IADL deficits, Mobility deficits OT Anticipated Treatments, Needs: Balance training, Basic activities of daily living, Group therapy, Home management, Home program, Patient education, Prosthetic training, Therapeutic exercises OT Team Notes Current: Yes Mobility Mobility/Transfers Grid [id number] Roll Left and Right: Ind XA0369 Sit to Lying: Ind HZ4756 Lying to Sitting on Side of Bed: Ind ZT0079 Sit to Stand: Ind XU9398 Chair,Bed to Chair Transfer: Ind WA4041 Car Transfer: Ind IM5790 Walk 10 Feet: Ind MO3601 Walk 50 Feet with Two Turns: Ind IS0630 Walk 150 Feet: Ind AT0118 Walk 10 Feet Uneven Surfaces: Sup/Touch A EU6970 1 Step (Curb): Sup/Touch A ZD9201 4 Steps: Sup/Touch A [id number] 12 Steps: Not Thaddeus GZ7530 Picking Up Object: Ind CW3509 Patient Use Wheelchair,Scooter: Yes NM3134 Wheel 50 Feet with Two Turns: Ind HC8506 Wheel 150 feet: Ind HY0168 Type Wheelchair,Scooter Use 50ft: Manual wheelchair TS2950 Type Wheelchair,Scooter Use 150ft: Manual wheelchair Mobility/Transfers Details Grid Mobility/Transfer Chair/bed to [facility] Chair/bed to chair Assistance Provided Supervision Chair/bed to chair transfer Comments squat pivot with prosthetic Mobility/Transfer WC-Level Surfaces WC Mobility- Level Skilled Assist No Assistance Mobility/Transfer WC-Uneven Surfaces WC Mobility- Uneven Skilled Assist No Assistance Orthotic,Prosthetic Use: Above knee amputation prosthesis Cogntive Functional Status Grid PT Simple Problem Solving - PT: Independent Reviewed Mobility: Yes WC Management WC Management Grid Lock Wheels: IND Unlock Wheels: IND Swing Away Leg Rests: IND Remove Leg Rests: IND Apply Leg Rests: IND Apply Arm Rests: IND Ability to remove seatbelt: No DME PT Equipment Anticipated or Recommended: None PT Equipment Issued Rehab: Manual wheelchair, Rolling walker, Wheel extension, Wheelchair anti- tippers, Wheelchair cushion PT Recommendations IP Patient Impairments/Limitations-PT: Impaired gait, Balance deficits, Impaired activity tolerance, Strength deficits, Transfer deficits PT Anticipated Treatments, Needs: Balance training, Bed mobility training, Environment Change, Equipment training, Gait training, Group therapy, Heat, Ice, Manual therapy, Neuromuscular reeducation, Patient education, Positioning/Repositioning/Elevation, Posture/Body mechanics training, Prosthetic training, Stair training, Stretching, Therapeutic exercises, Transfer training Recommendations Comment PT: Continue balance training, strength, hip flexor stretching, weight shift, gait mechanics PT Team Notes Current: Yes IADL IADL Functional Status Grid Shave: Independent Meal Prep: Independent Writing: Independent Keyboarding: Independent Phone Use: Independent Money Management: Independent Grocery Shopping: Sup/touching assist Clothing Care: Independent Light Cleaning: Independent Heavy Cleaning: Independent Community Mobility, Safety: Independent Medication Management: Independent Leisure Skills: Independent Other IADL Information: See recomendations section for details. Documented at least 1 IADL LTG: Yes 09/19/19 23:18 EDT Performed by Silvio Pryor PT Physical Therapy Discharge Instructions Safety and Weight Bearing: You can bear full weight on your legs Getting In and Out of Bed: You can get in and out of bed independently On Level Surfaces Indoors: You can walk or use a wheelchair independently Level Surfaces Special Instructions: Inside you house, you can walk by yourself with the walker. Don't try a cane until you get more practice with therapy. On Pavement Outdoors: You can walk or use a wheelchair independently, See Special Instructions Pavement Special Instructions: Use your walker when walking, take your time, have someone with you on uneven surfaces. Always keep your cell phone with you. On Curbs: You must have someone with you Curbs Special Instructions: Use the walker and have someone with you. On Stairs: You must have someone with you Stairs Special Instructions: Take your time and have someone with you. PT Home Program: Continue with your exercises provided to you during your stay 09/19/19 14:54 EDT Performed by Shae Hurst OT Occupational Therapy Discharge Instructions OT Safety and Weight Bearing: Follow safety instructions/precautions provided to you during your stay Safety and Wt Bearing Special Inst: Please remember to have someone without the first couple times you go grocery shopping with your prosthesis and walker. Getting on and off a toilet: You can get on and off the toilet independently PATIENT FOLLOW-UP INFORMATION With: Address: When: Dr Erik Hurley [address] [place], [place] [id number] 10/09/2019 3:30 PM Comments: PCP Medications ammonium lactate 12% topical lotion 1 thaddeus, Lotion, TOP BID, 1 EA, Refill(s) 1, Route to Pharmacy Electronically, [facility] Start Date: 09/19/19 Status: Ordered aspirin 81 mg oral tablet, chewable 81 mg = 1 tab, Tab-Chew, Oral, Daily, 30 tab, 1 Refill(s), Route to Pharmacy Electronically, [facility] Start Date: 09/19/19 Status: Ordered atorvastatin 80 mg oral tablet 80 mg = 1 tab, Tab, Oral, Daily, 30 tab, 1 Refill(s), Route to Pharmacy Electronically, [facility] Start Date: 09/19/19 Status: Ordered cetirizine 10 mg oral tablet 10 mg = 1 tab, Oral, Daily, 30 tab, 0 Refill(s) Start Date: 09/12/19 Status: Ordered cholecalciferol 1000 intl units (25 mcg) oral tablet 2,000 IntlUnit = 2 tab, Tab, Oral, Daily, 60 tab, 1 Refill(s), Route to Pharmacy Electronically, [facility] Start Date: 09/19/19 Status: Ordered gabapentin 300 mg oral capsule 300 mg, 1 cap, Cap, Oral, TID, 90 cap, 1 Refill(s), Route to Pharmacy Electronically, [facility] Start Date: 09/19/19 Status: Ordered insulin aspart 100 units/mL injectable solution Standard, Injection-Insulin (soln), Subcutaneous, WMHS, 10 mL, 1 Refill(s), For BS <200 = 0 U [id number] = 2 U BS 251-300 = 4 U BS 301-350 = 6 U BS >350 = 8 U, Route to Pharmacy Electronically,[facility] Start Date: 09/19/19 Status: Ordered insulin aspart 100 units/mL injectable solution 15 units, Injection-Insulin (soln), Subcutaneous, TIDPC, 15 mL, 1 Refill(s), Hold if patient does not complete at least 50% of meal., Route to Pharmacy Electronically, [facility] Start Date: 09/19/19 Status: Ordered insulin detemir 100 units/mL subcutaneous solution 42 units, Injection-Insulin (soln), Subcutaneous, QHS, 15 mL, 1 Refill(s), Route to Pharmacy Electronically, [facility] Start Date: 09/19/19 Status: Ordered ketoconazole 2% topical shampoo 1 thaddeus, Shampoo, TOP Daily, 1 bottle, 0 Refill(s), Dispense: 14 day, Indication: Empiric Therapy, Stop date 10/03/19 14:34:00 EDT, Route to Pharmacy Electronically, [facility] Start Date: 09/19/19 Stop Date: 10/03/19 Status: Ordered losartan 25 mg oral tablet 25 mg = 1 tab, Tab, Oral, Daily, 30 tab, 1 Refill(s), Route to Pharmacy Electronically, [facility] Start Date: 09/19/19 Status: Ordered magnesium oxide 400 mg (240 mg elemental magnesium) oral tablet 400 mg, 1 tab, Oral, Daily, 0 Refill(s) Start Date: 09/12/19 Status: Ordered Miscellaneous Non Medication See Instructions, Glucometer., 1, EA, 0 Refill(s), Maintenance, Route to Pharmacy Electronically, [facility]-[id number], Instructions Replace Required Details, Constant Indicator, [facility] Start Date: 09/19/19 Status: Ordered Miscellaneous Non Medication See Instructions, adequate quantity of insulin needles and syringes for TID postprandial insulin, sliding scale ACHS, and long-acting QHS for 30 days., 1, EA, 0 Refill(s), Maintenance, Route to Pharmacy Electronically, [facility]- [id number], Instructions R... Start Date: 09/19/19 Status: Ordered Miscellaneous Non Medication See Instructions, adequate quantity of lancets and test strips for insulin sliding scale ACHS for 30 days., 1, EA, 0 Refill(s), Maintenance, [id number], Instructions Replace Required Details, Constant Indicator,... Start Date: 09/19/19 Status: Ordered Multiple Vitamins oral tablet 1 tab, Tab, Oral, Daily, 30 tab, 1 Refill(s), Route to Pharmacy Electronically, [facility] Start Date: 09/19/19 Stop Date: 11/18/19 Status: Ordered traZODone 50 mg oral tablet 50 mg = 1 tab, Tab, Oral, QHS, 30 tab, 0 Refill(s) Start Date: 09/12/19 Status: Ordered Problem List Condition Effective Dates Status Health Status Inform ant ADL impairment(Confirmed) Active Impaired mobility(Confirmed) Active Instrumental activities of d aily living(Confirmed) Active Results Laboratory List Name Date Glucose, POC 09/20/19 Glucose, POC 09/19/19 Glucose, POC 09/19/19 Automated Diff [facility] 09/18/19 Complete Blood Count w/Auto Diff [facility] (CB C w/Auto Diff [facility]) 09/18/19 Comprehensive Metabolic Panel [facility] (CMP H [facility]) 09/18/19 Automated Diff [facility] 09/14/19 Complete Blood Count w/Auto Diff [facility] (CB C w/Auto Diff [facility]) 09/14/19 Comprehensive Metabolic Panel [facility] (CMP H [facility]) 09/14/19 Automated Diff [facility] 09/12/19 Complete Blood Count w/Auto Diff [facility] (CB C w/Auto Diff [facility]) 09/12/19 Comprehensive Metabolic Panel [facility] (CMP H [facility]) 09/12/19 Folate (Folic Acid), Serum - QST 09/12/19 Magnesium [facility] 09/12/19 Phosphorus [facility] 09/12/19 Prealbumin [facility] 09/12/19 TSH - QST 09/12/19 Vitamin B12 - QST 09/12/19 Vitamin D 25-OH D/D2/D3 LC/MS/MS - QST Urinalysis Complete w/Rflx Culture [facility] Most recent to oldest [Reference Range]: 1 2 3 4 Folate, Serum - QST 9.4 ng/mL 1 *NA* (09/12/19 6:52 AM) TSH - QST [0.40-4.50 mIUnits/L] 2.31 mIUnits/L 2 *NA* (09/12/19 6:52 AM) Vitamin B12 - QST [200-1100 pg/mL] 651 pg/mL 3 *NA* (09/12/19 6:52 AM) Vitamin D, 25-OH, Total - QST [30-100 ng/mL] 20 ng/mL 4 *LOW* (09/12/19 6:52 AM) Vitamin D, 25-OH, D3 - QST 20 ng/mL 5 *NA* (09/12/19 6:52 AM) Vitamin D, 25-OH, D2 - QST <4 ng/mL 6 *NA* (09/12/19 6:52 AM) Glucose POC RALS [74-106 mg/dL] 246 mg/dL *HI* (09/20/19 7:31 AM) 172 mg/dL *HI* (09/19/19 10:29 PM) 383 mg/dL *HI* (09/19/19 6:05 PM) Blood Glucose, Capillary [74-106 mg/dL] 318 mg/dL *HI* (09/17/19 1:29 PM) 318 mg/dL *HI* (09/17/19 1:29 PM) 233 mg/dL *HI* (09/16/19 6:39 PM) 233 mg/dL *HI* (09/16/19 6:39 PM) WBC [facility] [4.5-11.5 x10(3)/mcL] 4.3 x10(3)/mcL *LOW* (09/18/19 6:59 AM) 4.7 x10(3)/mcL (09/14/19 7:07 AM) 4.2 x10(3)/mcL *LOW* (09/12/19 6:52 AM) RBC [facility] [4.10-5.80 x10(6)/mcL] 4.57 x10(6)/mcL (09/18/19 6:59 AM) 4.69 x10(6)/mcL (09/14/19 7:07 AM) 4.42 x10(6)/mcL (09/12/19 6:52 AM) Hemoglobin [facility] [13.5-17.5 gm/dL] 13.4 gm/dL *LOW* (09/18/19 6:59 AM) 13.8 gm/dL (09/14/19 7:07 AM) 13.0 gm/dL *LOW* (09/12/19 6:52 AM) Hematocrit [facility] [40.0-53.0 %] 41.1 % (09/18/19 6:59 AM) 42.0 % (09/14/19 7:07 AM) 39.0 % *LOW* (09/12/19 6:52 AM) MCV [facility] [80.0-103.4 fL] 89.9 fL (09/18/19 6:59 AM) 89.6 fL (09/14/19 7:07 AM) 88.2 fL (09/12/19 6:52 AM) MCH [facility] [26.0-34.0 pg] 29.3 pg (09/18/19 6:59 AM) 29.4 pg (09/14/19 7:07 AM) 29.4 pg (09/12/19 6:52 AM) MCHC [facility] [31.5-35.0 gm/dL] 32.6 gm/dL (09/18/19 6:59 AM) 32.9 gm/dL (09/14/19 7:07 AM) 33.3 gm/dL (09/12/19 6:52 AM) Platelet [facility] [150-450 x10(3)/mcL] 199 x10(3)/mcL (09/18/19 6:59 AM) 217 x10(3)/mcL (09/14/19 7:07 AM) 204 x10(3)/mcL (09/12/19 6:52 AM) RDW-CV% [facility] [11.6-14.4 %] 13.5 % (09/18/19 6:59 AM) 13.6 % (09/14/19 7:07 AM) 13.2 % (09/12/19 6:52 AM) RDW-SD [facility] [35.1-43.9 fL] 43.6 fL (09/18/19 6:59 AM) 43.6 fL (09/18/19 6:59 AM) 43.6 fL (09/14/19 7:07 AM) 43.6 fL (09/14/19 7:07 AM) MPV [facility] 10.3 *NA* (09/18/19 6:59 AM) 10.5 *NA* (09/14/19 7:07 AM) 10.7 *NA* (09/12/19 6:52 AM) Neutrophil Auto [facility] [39.7-77.3 %] 46.0 % (09/18/19 6:59 AM) 41.6 % (09/14/19 7:07 AM) 42.1 % (09/12/19 6:52 AM) Lymphocyte Auto [facility] [17.8-51.8 %] 39.2 % (09/18/19 6:59 AM) 44.6 % (09/14/19 7:07 AM) 43.6 % (09/12/19 6:52 AM) Monocyte Auto [facility] [3.0-10.4 %] 11.1 % *HI* (09/18/19 6:59 AM) 10.1 % (09/14/19 7:07 AM) 11.0 % *HI* (09/12/19 6:52 AM) Eosinophil Auto [facility] [0.0-7.0 %] 2.8 % (09/18/19 6:59 AM) 2.5 % (09/14/19 7:07 AM) 2.6 % (09/12/19 6:52 AM) Basophil Auto [facility] [0.0-0.9 %] 0.7 % (09/18/19 6:59 AM) 0.6 % (09/14/19 7:07 AM) 0.5 % (09/12/19 6:52 AM) Immature Gran Auto [facility] [0.0-0.5 %] 0.2 % (09/18/19 6:59 AM) 0.6 % *HI* (09/14/19 7:07 AM) 0.2 % (09/12/19 6:52 AM) Neutrophil Absolute [facility] [1.20-5.30 x10(3)/mcL] 2.00 x10(3)/mcL (09/18/19 6:59 AM) 1.96 x10(3)/mcL (09/14/19 7:07 AM) 1.75 x10(3)/mcL (09/12/19 6:52 AM) Lymphocyte Absolute [facility] [0.8-2.7 x10(3)/mcL] 1.7 x10(3)/mcL (09/18/19 6:59 AM) 2.1 x10(3)/mcL (09/14/19 7:07 AM) 1.8 x10(3)/mcL (09/12/19 6:52 AM) Monocyte Absolute [facility] [<=1.00 x10(3)/mcL] 0.48 x10(3)/mcL (09/18/19 6:59 AM) 0.48 x10(3)/mcL (09/14/19 7:07 AM) 0.46 x10(3)/mcL (09/12/19 6:52 AM) Eosinophil Absolute [facility] [0.00-0.40 x10(3)/mcL] 0.12 x10(3)/mcL (09/18/19 6:59 AM) 0.12 x10(3)/mcL (09/14/19 7:07 AM) 0.11 x10(3)/mcL (09/12/19 6:52 AM) Basophil Absolute [facility] [0.00-0.05 x10(3)/mcL] 0.03 x10(3)/mcL (09/18/19 6:59 AM) 0.03 x10(3)/mcL (09/14/19 7:07 AM) 0.02 x10(3)/mcL (09/12/19 6:52 AM) Immature Gran Absolute [facility] [0.00-0.04 x10(3)/mcL] 0.01 x10(3)/mcL (09/18/19 6:59 AM) 0.03 x10(3)/mcL (09/14/19 7:07 AM) 0.01 x10(3)/mcL (09/12/19 6:52 AM) Color UR [facility] [yellow] yellow (09/11/19 6:45 AM) Appearance UR [facility] [clear] clear (09/11/19 6:45 AM) Specific [place] UR HSL [1.010-1.040] 1.015 (09/11/19 6:45 AM) pH UR [facility] [5] 6.5 (09/11/19 6:45 AM) Glucose UR [facility] [Normal] 1000 *ABN* (09/11/19 6:45 AM) Bilirubin UR [facility] neg *NA* (09/11/19 6:45 AM) Ketones UR [facility] neg *NA* (09/11/19 6:45 AM) Blood UR [facility] [Neg units/L] 50 units/L *ABN* (09/11/19 6:45 AM) Protein UR [facility] [Neg mg/dL] 100 mg/dL *ABN* (09/11/19 6:45 AM) Urobilinogen UR [facility] norm *NA* (09/11/19 6:45 AM) Nitrite UR [facility] neg *NA* (09/11/19 6:45 AM) Leukocyte Esterase UR [facility] [Neg mg/dL] 25 mg/dL *ABN* (09/11/19 6:45 AM) Squamous Epithelials UR [facility] [0-5] Rare (09/11/19 6:45 AM) Bacteria UR [facility] None Seen (09/11/19 6:45 AM) WBC UR [facility] [None Seen] None Seen (09/11/19 6:45 AM) RBC UR [facility] [None Seen] Rare (09/11/19 6:45 AM) Specimen Source UR [facility] Clean Catch (09/11/19 6:45 AM) Estimated Creatinine Clearance 107.79 mL/min (09/18/19 12:11 PM) 107.79 mL/min (09/18/19 9:07 AM) 86.86 mL/min (09/18/19 6:09 AM) Creatinine Level 0.83 mg/dL (09/18/19 6:59 AM) 1.03 mg/dL (09/14/19 7:07 AM) 0.99 mg/dL (09/12/19 6:52 AM) Sodium HSL [138-146 mmol/L] 134 mmol/L *LOW* (09/18/19 6:59 AM) 137 mmol/L *LOW* (09/14/19 7:07 AM) 134 mmol/L *LOW* (09/12/19 6:52 AM) Potassium H[facility] [3.6-5.1 mmol/L] 4.4 mmol/L (09/18/19 6:59 AM) 4.2 mmol/L (09/14/19 7:07 AM) 4.0 mmol/L (09/12/19 6:52 AM) Chloride H[facility] [101-111 mmol/L] 103 mmol/L (09/18/19 6:59 AM) 103 mmol/L (09/14/19 7:07 AM) 102 mmol/L (09/12/19 6:52 AM) Carbon Dioxide H[facility] [22.0-32.0 mmol/L] 26.0 mmol/L (09/18/19 6:59 AM) 27.0 mmol/L (09/14/19 7:07 AM) 24.0 mmol/L (09/12/19 6:52 AM) Anion Gap [facility] [8-16 mmol/L] 9 mmol/L (09/18/19 6:59 AM) 11 mmol/L (09/14/19 7:07 AM) 12 mmol/L (09/12/19 6:52 AM) Glucose [facility] [74-118 mg/dL] 239 mg/dL *HI* (09/18/19 6:59 AM) 297 mg/dL *HI* (09/14/19 7:07 AM) 258 mg/dL *HI* (09/12/19 6:52 AM) BUN [facility] [8.0-26.0 mg/dL] 22.0 mg/dL (09/18/19 6:59 AM) 23.0 mg/dL (09/14/19 7:07 AM) 24.0 mg/dL (09/12/19 6:52 AM) Creatinine [facility] [0.61-1.24 mg/dL] 0.83 mg/dL (09/18/19 6:59 AM) 1.03 mg/dL (09/14/19 7:07 AM) 0.99 mg/dL (09/12/19 6:52 AM) eGFR-AA [facility]SL 82 *NA* (09/18/19 6:59 AM) 64 *NA* (09/14/19 7:07 AM) 67 *NA* (09/12/19 6:52 AM) eGFR-Non AA [facility] 97 *NA* (09/18/19 6:59 AM) 76 *NA* (09/14/19 7:07 AM) 79 *NA* (09/12/19 6:52 AM) BUN/Creat Ratio [facility] [5.0-20.0 ratio] 26.5 ratio *HI* (09/18/19 6:59 AM) 22.3 ratio *HI* (09/14/19 7:07 AM) 24.2 ratio *HI* (09/12/19 6:52 AM) Calcium Total [facility] [8.9-10.3 mg/dL] 8.5 mg/dL *LOW* (09/18/19 6:59 AM) 9.0 mg/dL (09/14/19 7:07 AM) 8.7 mg/dL *LOW* (09/12/19 6:52 AM) Albumin [facility] [3.5-5.0 gm/dL] 3.0 gm/dL *LOW* (09/18/19 6:59 AM) 3.2 gm/dL *LOW* (09/14/19 7:07 AM) 2.9 gm/dL *LOW* (09/12/19 6:52 AM) Protein Total [facility] [6.5-8.1 gm/dL] 7.7 gm/dL (09/18/19 6:59 AM) 8.1 gm/dL (09/14/19 7:07 AM) 7.7 gm/dL (09/12/19 6:52 AM) Prealbumin [facility] [18-38 mg/dL] 12 mg/dL *LOW* (09/12/19 6:52 AM) Bilirubin Total [facility] [0.30-1.20 mg/dL] 0.74 mg/dL (09/18/19 6:59 AM) 0.75 mg/dL (09/14/19 7:07 AM) 0.64 mg/dL (09/12/19 6:52 AM) Magnesium [facility] [1.8-2.5 mg/dL] 1.8 mg/dL (09/12/19 6:52 AM) Phosphorus [facility] [2.5-4.6 mg/dL] 4.5 mg/dL (09/12/19 6:52 AM) Alkaline Phosphatase HSL [32-91 IU/L] 144 IU/L *HI* (09/18/19 6:59 AM) 174 IU/L *HI* (09/14/19 7:07 AM) 143 IU/L *HI* (09/12/19 6:52 AM) AST HSL [15-41 IU/L] 79 IU/L *HI* (09/18/19 6:59 AM) 54 IU/L *HI* (09/14/19 7:07 AM) 47 IU/L *HI* (09/12/19 6:52 AM) ALT HSL [17-63 IU/L] 71 IU/L *HI* (09/18/19 6:59 AM) 50 IU/L (09/14/19 7:07 AM) 44 IU/L (09/12/19 6:52 AM) 1Result Comment: Reference Range Low: <3.4 Borderline: 3.4-5.4 Normal: >5.4 Lab test performed by: Lab Mnemonic: [facility] [address] [place] [address] CASIMIRO ALEJANDRE MD 2Result Comment: Lab test performed by: Lab Mnemonic: [facility] [address] [facility] [place] [address] CASIMIRO ALEJANDRE MD 3Result Comment: Lab test performed by: Lab Mnemonic: [facility] [address] [facility] [place] [address] CASIMIRO ALEJANDRE MD 4Result Comment: Vitamin D, 25-Hydroxy reports concentrations of two common forms, 25-OHD2 and 25-OHD3. 25-OHD3 indicates both endogenous production and supplementation. 25-OHD2 is an indicator of exogenous sources, such as diet or supplementation. Therapy is based on measurement of Total 25-OHD, with levels <20 ng/mL indicative of Vitamin D deficiency, while levels between 20 ng/mL and 30 ng/mL suggest insufficiency. Optimal levels are > or = 30 ng/mL. Vitamin D is fat-soluble and therefore inadvertent or intentional ingestion of excessively high amounts could be toxic. Studies in children and adults suggest blood levels would need to exceed 150 ng/mL before there is any concern. Joseph MF, Maria D NC, Winsome COLLAZO, et al., Evaluation, treatment, and prevention of vitamin D deficiency: an Endocrine Society clinical practice guideline. J Clin. Endocrinol. Metab. 2011;96(7):1911-30. 5Result Comment: Reference Range Not established This test was developed and its analytical performance characteristics have been determined by [facility]. It has not been cleared or approved by the FDA. This assay has been validated pursuant to the CLIA regulations and is used for clinical purposes. 6Result Comment: Reference Range Not established This test was developed and its analytical performance characteristics have been determined by [facility]. It has not been cleared or approved by the FDA. This assay has been validated pursuant to the CLIA regulations and is used for clinical purposes. See Note 1 Note 1 For additional information, please refer to http://education.[employer].PurePlay/faq/TWB642 (This link is being provided for informational/ educational purposes only.) Lab test performed by: Lab Mnemonic: [facility], a division of [employer] [facility] [place] [address] CASIMIRO ALEJANDRE MD Vital Signs Most recent to oldest [Reference Range]: 1 2 3 Temperature Oral F [96.4-99.1 DegF] 97.7 DegF (09/20/19 7:13 AM) 98.4 DegF (09/19/19 6:10 PM) 97.6 DegF (09/19/19 6:00 AM) Peripheral Pulse Rate [60-100 bpm] 78 bpm (09/20/19 7:13 AM) 84 bpm (09/19/19 6:10 PM) 73 bpm (09/19/19 6:00 AM) Respiratory Rate [14-20 br/min] 18 br/min (09/20/19 7:13 AM) 19 br/min (09/19/19 6:10 PM) 18 br/min (09/19/19 6:00 AM) Blood Pressure [90-140/60-90 mmHg] 159/96mmHg *HI* (09/20/19 7:13 AM) 132/85mmHg (09/19/19 6:10 PM) Systolic Blood Pressure [90-140 mmHg] 151 mmHg *HI* (09/19/19 6:00 AM) Diastolic Blood Pressure [60-90 mmHg] 90 mmHg (09/19/19 6:00 AM) Mean Arterial Pressure, Cuff 104 mmHg (09/16/19 5:16 AM) Extremity used to obtain blood pressure Right Arm (09/20/19 7:13 AM) Left Arm (09/19/19 6:10 PM) Right Arm (09/18/19 7:17 PM) Cuff Size. Medium (09/20/19 7:13 AM) Medium (09/19/19 6:10 PM) Medium (09/18/19 7:17 PM) Temperature Oral 36.5 DegC 1 (09/20/19 7:13 AM) 36.9 DegC 2 (09/19/19 6:10 PM) 36.8 DegC 3 (09/18/19 7:17 PM) 1Result Comment: Charted by SYSTEM secondary to charting of Temperature Oral F in [employer]. Rule: CARETRACKER_CALCULATIONS 2Result Comment: Charted by SYSTEM secondary to charting of Temperature Oral F in [employer]. Rule: CARETRACKER_CALCULATIONS 3Result Comment: Charted by SYSTEM secondary to charting of Temperature Oral F in [employer]. Rule: CARETRACKER_CALCULATIONS
--- OUTSIDE RECORDS SUMMARY | 2024-02-23 18:53 | XMS_ITS | Encounter Summary ---
Author [facility] Address [address] [place] [address] Care Team Providers Care Wheel And Axle Inspector Name Role Phone Unavailable Primary Care Provider Unavailabl e Encounter Details Date Type Department Care Team (Latest Contact Info) Description 10/29/2023 Travel Social History Tobacco Use Types Packs/Day Years Used Date Smoking Tobacco: Every Day Cigarettes Smokeless Tobacco: Never Alcohol Use Standard Drinks/Week Comments Not Currently [...] your living situation today? I have a [facility] place to live 10/29/2023 Think about the [...] Isolated 0 10/28 Educational Attainment Answer Date Mleo rded Do you speak a language other than Maltese at [facility]? No 10/29/2023 Do you want help with school or training? For example, starting or completing job training or getting a high school diploma, GED or equivalent. No 10/29/2023 Physical Activity Answer Date Recorded Number of minutes of exercise per week 0 10/29/2023 Alcohol Use Answer Date Recorded 5 or More Drinks Per Day Past 12 Months 0 10/29/2023 Depression Answer Date Recorded Calculation of above [...]
--- OUTSIDE RECORDS SUMMARY | 2024-02-23 18:53 | XMS_ITS | Encounter Summary ---
Author Organization [facility] Address [address] [place] [address] Care Team Providers Care Template Inspector Name Role Phone Unavailable Primary Care Provider Unavailabl e Encounter Details Date Type Department Care Team (Late st Contact Info) Description 07/20/2019 Historic Encounter [address] [id number] ProviderKesha Historical Social History Tobacco Use Types Packs/Day Years [...] Procedure Name Priority Date/Time Associated Diagnosis Comments CBC W/ AUTO DIFF ([facility] BKR DATA CONV) Routine 07/20/2019 2:33 PM EDT AUTOMATED DIFFERENTIAL ([facility] BKR DATA CONV) Routine 07/20/2019 2:33 PM EDT BMP BASIC METABOLIC PANEL ([facility] BKR DATA CONV) Routine 07/20/2019 2:33 PM EDT documented in this encounter Results * (ABNORMAL) BMP BASIC METABOLIC PANEL ([facility] BKR DATA CONV) (07/20/2019 2:33 PM EDT) Glucose Level 446(H) 74 - 106 mg/dL 07/21/2019 2:11 AM EDT Comment: [facility] has become aware of sulfasalazine and sulfapyridine drug interference in the assays ALT, AST, T4, CKMB, glucose, and ammonia. The probability of misinterpretation of results for the assays is remote and would be limited to scenarios where a patient has taken the drug and had a blood sample drawn before clearance of the drug to a level that does not interfere with laboratory testing. Venipuncture should occur prior to administration of the drug. Blood Urea Nitrogen 25(H) 7 - 22 mg/dL 07/21/2019 2:11 AM EDT Creatinine Level 0.98 0.70 - 1.30 mg/dL 07/21/2019 2:11 AM EDT Sodium Level 133(L) 136 - 146 mmol/L 07/21/2019 2:11 AM EDT Potassium Level 4.8 3.5 - 5.1 mmol/L 07/21/2019 2:11 AM EDT Chloride Level 100(L) 102 - 112 mmol/L 07/21/2019 2:11 AM EDT Carbon Dioxide Level 28 21 - 32 mmol/L 07/21/2019 2:11 AM EDT Anion Gap 10 9 - 20 07/21/2019 2:11 AM EDT Calcium Level 8.7 8.5 - 10.1 mg/dL 07/21/2019 2:11 AM EDT Bun/Creatinine 25.5(H) 8.0 - 20.0 07/21/2019 2:11 AM EDT eGFR NonAfrican >60 >=60 mL/min/1. 73m2 07/21/2019 2:11 AM EDT Comment: GFR <60 suggests chronic kidney disease, if found over 3 month period. GFR <15 indicates renal failure. eGFR >60 >=60 mL/min/1. 73m2 07/21/2019 2:11 AM EDT Comment: GFR <60 suggests chronic kidney disease, if found over 3 month period. GFR <15 indicates renal failure. Blood 07/20/2019 2:33 PM EDT 07/21/2019 1:59 AM EDT [facility] Historical Provider LAB BLOOD ORDERABLES Fi nal Result [facility] [address] [place] [address], [facility] [phone] * AUTOMATED DIFFERENTIAL ([facility] BKR DATA CONV) (07/20/2019 2:33 PM EDT) Neut% 55.2 34.0 - 71.0 % 07/21/2019 2:01 AM EDT Lymph% 35.2 19.3 - 53.0 % 07/21/2019 2:01 AM EDT Erath% 6.9 4.7 - 12.5 % 07/21/2019 2 :01 AM EDT Eos% 1.5 1.0 - 7.0 % 07/21/2019 2: 01 AM EDT Baso% 0.8 0.0 - 1.0 % 07/21/2019 2: 01 AM EDT IG% 0 0 - 1 % 07/21/2019 2:0 1 AM EDT Neut# 2.87 1.56 - 6.13 K/uL 07/21/2019 2:01 AM EDT Lymph# 1.83 1.18 - 3.74 K/uL 07/21/2019 2:01 AM EDT Erath# 0.36 0.24 - 0.82 K/uL 07/21/2019 2:01 AM EDT Eos# 0.08 0.04 - 0.54 K/uL 07/21/2019 2:01 AM EDT Baso# 0.04 0.01 - 0.08 K/uL 07/21/2019 2:01 AM EDT IG# 0 0 - 0 x10(3)/uL 07/21/2019 2:01 AM EDT Blood 07/20/2019 2:33 PM EDT 07/21/2019 1:57 AM EDT Narrative [facility] - 07/21/2019 2:07 AM EDT Added by Discern Expert [facility] Historical Provider LAB BLOOD ORDERABLES Fi nal Result [facility] [address] [place] [address], [facility] [phone] * (ABNORMAL) CBC W/ AUTO DIFF ([facility] BKR DATA CONV) (07/20/2019 2:33 PM EDT) WBC 5.2 3.9 - 10.0 K/uL 07/21/2019 2:01 AM EDT RBC 5.01 4.63 - 6.08 Million/uL 07/21/2019 2:01 AM EDT Comment: No Red Blood Cell reference ranges defined for patients with an ? Unknown? gender. Please apply existing Male/Female reference ranges as clinically indicated. Assay ?RBC Male ??0 ??Minutes ??2 ??Months ??4.8 7.1 Female ??0 ??Minutes ??2 ??Months ??4.8 7.1 Male ??2 ??Months ??12 ??Years ??4 5.5 Female ??2 ??Months ??12 ??Years ??4 5.5 Male ??12 ??Years ??150 ??Years ??4.63 6.08 Female ??12 ??Years ??150 ??Years ??3.93 5.22 Hgb 14.7 13.7 - 17.5 Gram/dL 07/21/2019 2:01 AM EDT Comment: No Hemoglobin reference ranges defined for patients with an ? Unknown? gender. Please apply existing Male/Female reference ranges as clinically indicated. Assay ?HGB Male ??0 ??Days ??1 ??Months ??12 23 Female ??0 ??Days ??1 ??Months ??12 23 Male ??1 ??Months ??2 ??Years ??10 14 Female ??1 ??Months ??2 ??Years ??10 14 Male ??2 ??Years ??12 ??Years ??11 16 Female ??2 ??Years ??12 ??Years ??11 16 Male ??12 ??Years ??150 ??Years ??13.7 17.5 Female ??12 ??Years ??150 ??Years ??11.2 15.7 Hct 44.2 40.1 - 51.0 % 07/21/2019 2:01 AM EDT Comment: No Hematocrit reference ranges defined for patients with an ? Unknown? gender. Please apply existing Male/Female reference ranges as clinically indicated. Assay ?HCT Male ??0 ??Minutes ??1 ??Months ??42 66 Female ??0 ??Minutes ??1 ??Months ??42 66 Male ??1 ??Months ??2 ??Years ??31 42 Female ??1 ??Months ??2 ??Years ??31 42 Male ??2 ??Years ??12 ??Years ??33 46 Female ??2 ??Years ??12 ??Years ??33 46 Male ??12 ??Years ??150 ??Years ??40.1 51 Female ??12 ??Years ??150 ??Years ??34.1 44.9 MCV 88.2 79.0 - 94.8 fL 07/21/2019 2:01 AM EDT MCH 29.3 25.6 - 32.2 pg 07/21/2019 2:01 AM EDT MCHC 33.3 32.3 - 36.5 Gram/dL 07/21/2019 2:01 AM EDT RDW 14.5(H) 11.6 - 14.4 % 07/21/2019 2:01 AM EDT Platelet Count 236 163 - 369 K/uL 07/21/2019 2:01 AM EDT MPV 10.5 9.4 - 12.4 fL 07/21/2019 2:01 AM EDT Slide Review No 07/21/2019 2:07 AM EDT Blood 07/20/2019 2:33 PM EDT 07/21/2019 1:57 AM EDT [facility] Historical Provider LAB BLOOD ORDERABLES Fi nal Result [facility] [address] [place] [address], [facility] [phone] documented in this encounter Visit Diagnoses Not on filedocumented in this encounter
--- OUTSIDE RECORDS SUMMARY | 2024-02-23 18:53 | XMS_ITS | Encounter Summary ---
Author Organization [email or web address] [facility] Address [address] [place] [id number] Care Team Providers Care Special Procedure Tech Name Role Phone Unavailable Primary Care Provider Unavailabl e Reason for Visit * Auth/Cert (Routine) Specialty Diagnoses / Procedures Referred By Conternestine t Referred To Contact Diagnoses Acute on chronic diastolic CHF (congestive heart failure) (HCC) CHF [place] [address] [address] [place] [phone] Phone: tel: fax: [place] [address] [address] [place] [phone] Phone: tel: fax: Referral ID Status Reason Start Date Expiration Date Visits Re quested Visits Authorized [id number] 1 1 Encounter Details Date Type Department Care Team (Late st Contact Info) Description 10/29/2023 2:26 PM EDT - 11/08/2023 3:20 PM EDT Hospital Encounter [place] [address] Interventional [address] 1 [place] [address] Nohelia Deutsch, DO [facility] [address] [address] Bing Sebastian, DO [address] [address] Acute on chronic diastolic CHF (congestive heart failure) (HCC) (Primary Dx) Discharge Disposition: Home or Self Care Social History Tobacco Use Types Packs/Day Years [...] your living situation today? I have a [facility] to live 10/29/2023 Think about [...] Do you speak a language other than C[facility] at [facility]? No 10/29/2023 Do you want help [...] Mass Index 23.47 10/29/2023 2:38 PM EDT documented in this encounter Functional Status * Are you deaf or do you have serious difficulty hearing? Answer Date of Assessment Author No 11/08/2023 1:05 PM Thais Butt RN * Are you blind or do you have serious difficulty seeing, even when wearing glasses? Answer Date of Assessment Author No 11/08/2023 1:05 PM Thais Butt RN * Do you have serious difficulty walking or climbing stairs? Answer Date of Assessment Author Yes 11/08/2023 1:05 PM Thais Butt RN * Do you have serious difficulty dressing or bathing? Answer Date of Assessment Author No 11/08/2023 1:05 PM Thais Butt RN * Because of a physical, mental, or emotional condition, do you have serious difficulty doing errandsalone such as visiting the doctor? Answer Date of Assessment Author Yes 11/08/2023 1:05 PM Thais Butt RN documented as of this encounter Mental Status * Because of a physical, mental, or emotional condition, do you have serious difficulty concentrating, remembering, or making decisions? (5 years old or older) Answer Entry Date Author Yes 11/08/2023 1:05 PM Thais Butt RN documented in this encounter Discharge Summaries * Bing Sebastian, - 11/08/2023 3:20 PM EDT [facility] physicians discharge summary Patient Name: Robert Hurley Jr. : 1965 Date of Admission: 10/29/2023 Date of Discharge: 11/08/2023 3:20 PM Primary Care Physician: No primary care provider on file. Consultations: Treatment Team: Consulting Physician: Gilbert Dailey MD Consulting Physician: Monika Pennington MD Discharge Diagnoses: #Acute on chronic systolic decompensated HF: NYHA III, stage D #Anasarca #KOKO on CKD: #RLE cellulitis: #Aortic stenosis: #Tobacco use disorder: #LECHUGA Cirrhosis: #Diabetes: Reason for Admission: Shortness of breath Hospital Course: Mr. Hurley is a 58-year-old male with past medical history of CKD, heart failure, diabetes and peripheral vascular disease who presented to the hospital with shortness of breath and scrotal edema. He has been taking Lasix at home but despite this has worsening symptoms. He was admitted to [facility] initially for heart failure exacerbation and upon further evaluation had an EF of 2024% was transferred to our facility for AICD evaluation. Workup at outside hospital notable at that time for serum creatinine of 3.3. Upon arrival to our facility he was seen and evaluated by cardiology, EP and nephrology. He received IV diuretic therapy with marked improvement of his renal function. His GDMT was limited unfortunately due to his renal insufficiency and he was started on Toprol, Isordil and hydralazine. He had repeat echo with EF of 15% at our facility. Plan of care will be to continue current GDMT and have patient follow-up as an outpatient to determine if he had any improvement of his cardiac function prior to AICD placement for primary prevention. In addition while he was here he was noted to have evidence of aortic stenosis with concern for low-flow low gradient AAS which she will need outpatient follow-up for as well. EP recommended LifeVest and this was obtained per case management and EP assistance. Nephrology was consulted as well. Recommendations were to hold Entresto and Jardiance. Initially plan of care was to get patient to rehab however unfortunately this was challenging due to his LifeVest and facilities being reluctant to accept him as a result. He continue to work with PTOT and was transition to p.o. diuretic therapy. Also during his course he was noted to have evidence of right lower extremity cellulitis and was initially on ceftriaxone. He has underlying chronic venous stasis. Cultures from outside hospital demonstrated Klebsiella and Enterobacter which were superficial cultures. He was transitioned to p.o. Doxy and Keflex after 3 days of IV antibiotics for a total of 8 days of empiric coverage with resolution of his leukocytosis and clinical improvement. Eventually patient made decision to return home. We will continue to work on rehab and although it was challenging case management went to speak to the patient and he decided that he would return home. He is definitely limited with his amputation but does have a prosthetic device. He is able to make his own medical decisions and has medical decision-making capacity at this time. Home health will be resumed per case management. Studies Performed: XR chest AP portable Final Result Stable cardiomegaly with increased interstitial markings, may represent mild pulmonary edema. Small bilateral pleural effusions. Images reviewed, interpreted, and dictated by Dr. Cathryn Leone. Transcribed by Lia Hawk PA-C. XR chest AP portable Final Result No significant interval change. Images reviewed, interpreted, and dictated by Dr. Enzo Alonso. Transcribed by Kayla Shaffer PA-C. XR chest AP portable Final Result Mild improvement in the pulmonary vascular congestion. Images reviewed, interpreted, and dictated by Dr. Enzo Alonso. Transcribed by Kayla Shaffer PA-C. XR chest AP portable Final Result Worsening interstitial opacities which may be secondary to edema. Images reviewed, interpreted, and dictated by Dr. Stephon Cedillo. Transcribed by Isma Brian PA-C XR chest AP portable Final Result Improving aeration. Images reviewed, interpreted, and dictated by Dr. Frandy Stauffer. Transcribed by Brad Hernandez PA-C. XR chest AP portable Final Result Vascular congestion and interstitial opacity likely related to mild edema. Images reviewed, interpreted, and dictated by Dr. Stephon Cedillo. Transcribed by Brad Hernandez PA-C. XR chest AP portable Final Result Mild cardiomegaly with pulmonary vascular congestion. Images reviewed, interpreted, and dictated by Dr. Stephon Cedillo. Transcribed by Lia Hawk PA-C. ECHO COMPLETE (DOPPLER / COLOR) W OR WO CONTRAST Final Result XR chest AP portable Final Result 1. Cardiomegaly and mild interstitial opacity favored to be chronic. Follow-up better inflated PA and lateral chest radiograph may be of value. Images reviewed, interpreted, and dictated by Stephon Cedillo MD Procedures Performed: Discharge Medications: Your medication list START taking these medications Instructions Comments Quantity Refills metoprolol succinate 25 MG 24 hr tablet Commonly known as: TOPROL-XL Take 3 tablets (75 mg total) by mouth daily for 30 days. 90 tablet 0 CONTINUE taking these medications Instructions Comments Quantity Refills albuterol HFA 90 mcg/actuation inhaler Commonly known as: VENTOLIN HFA Inhale 1 puff by mouth via inhaler every 6 (six) hours as needed for wheezing. 0 aspirin 81 MG EC tablet Take 1 tablet (81 mg total) by mouth daily. 0 atorvastatin 80 MG tablet Commonly known as: LIPITOR Take 1 tablet (80 mg total) by mouth nightly. 0 furosemide 40 MG tablet Commonly known as: LASIX Take 1 tablet (40 mg total) by mouth daily as needed (Edema). 0 gabapentin 600 MG tablet Commonly known as: NEURONTIN Take 1 tablet (600 mg total) by mouth 3 (three) times daily. 0 hydrALAZINE 50 MG tablet Commonly known as: APRESOLINE Take 1 tablet (50 mg total) by mouth 3 (three) times daily Look-alike/Sound-alike medication. 0 insulin detemir U-100 100 unit/mL (3 mL) Inpn injection Commonly known as: LEVEMIR Inject 0.13 mLs (13 Units total) subcutaneously nightly. 0 isosorbide dinitrate 40 MG tablet Commonly known as: ISORDIL Take 1 tablet (40 mg total) by mouth 3 (three) times daily. 0 STOP taking these medications carvediloL 12.5 MG tablet Commonly known as: COREG Where to Get Your Medications These medications were sent to [facility] at [address] [facility] [address], [facility] [phone] ?? metoprolol succinate 25 MG 24 hr tablet Physical exam: Gen: Chronically ill appearing disheveled male resting comfortably, no acute distress HEENT: PERRL, EOMI CVS: RRR, no murmurs, no edema Lung: Bibasilar crackles, no increased WOB, nasal cannula in place Abd: Soft non-distended Skin: Chronic venous stasis in RLE, extensive, onychomycosis RLE MSK: Left AKA Discharge Instructions Please take your medications as prescribed Discharge condition: Stable and improved Discharge Diet: Cardiac Discharge Activity: As tolerated Discharge Follow UP: Contact information for follow-up Gilbert Dailey MD Specialty: Cardiology, Respiratory Therapy, Electrophysiology, Electrophysiology - Cardiac [address] [facility] [address] [facility] [address] Next Steps: Go in 1 month(s) Instructions: EP follow up 12/06/23 @3:00pm [facility] Specialty: Home Health Services, Home Therapy Services, Home Living Aide Services [address] [facility], [address] [facility] [address] Next Steps: Follow up Instructions: Home health agency [facility] [phone] Next Steps: Follow up Instructions: Company supplying oxygen Douglas Hurst MD Specialty: Family Medicine [address] [facility] [address] [facility] [address] Next Steps: Go on 11/11/2023 Instructions: Appt time is 1pm Please arrive 30 minutes early for registration. Bring photo ID and insurance card (if applicable) and all current medications. Time Spent: 35 min Electronically signed by Bing Sebastian DO, 11/08/23, 4:08 PM EDT documented in this encounter Discharge Instructions * Attachments The following attachments cannot be sent through Care Everywhere. * Heart Failure Diagnosis [id number] ([employer]) * Heart Failure Action Plan ([employer]) * Heart Failure Self-Care [id number] ([employer]) documented in this encounter Medications at Time of Discharge albuterol HFA (VENTOLIN HFA) 90 mcg/actuation inhaler Inhale 1 puff by mouth via inhaler every 6 (six) hours as needed for wheezing. aspirin 81 MG EC tablet Take 1 tablet (81 mg total) by mouth daily. atorvastatin (LIPITOR) 80 MG tablet Take 1 tablet (80 mg total) by mouth nightly. furosemide (LASIX) 40 MG tablet Take 1 tablet (40 mg total) by mouth daily as needed (Edema). gabapentin (NEURONTIN) 600 MG tablet Take 1 tablet (600 mg total) by mouth 3 (three) times daily. hydrALAZINE (APRESOLINE) 50 MG tablet Take 1 tablet (50 mg total) by mouth 3 (three) times daily Look-alike/Sound- alike medication. insulin detemir U-100 (LEVEMIR) 100 unit/mL (3 mL) InPn injection Inject 0.13 mLs (13 Units total) subcutaneously nightly. isosorbide dinitrate (ISORDIL) 40 MG tablet Take 1 tablet (40 mg total) by mouth 3 (three) times daily. metoprolol succinate (TOPROL-XL) 25 MG 24 hr tabletIndicatio ns:Acute on chronic diastolic CHF (congestive heart failure) (HCC) Take 3 tablets (75 mg total) by mouth daily for 30 days. 90 tablet 11/08/2023 documented as of this encounter Progress Notes * Gilbert Dailey MD - 11/08/2023 3:20 PM EDT Store Operations Manager: Chief Complaint: No chief complaint on file. Subjective: NAD Social History: Social History Socioeconomic History ??? Marital status: Unknown Spouse name: Not on file ??? Number of children: Not on file ??? Years of education: Not on file ??? Highest education level: Not on file Occupational History ??? Not on file Tobacco Use ??? Smoking status: Every Day Types: Cigarettes ??? Smokeless tobacco: Never Substance and Sexual Activity ??? Alcohol use: Not Currently ??? Drug use: Never ??? Sexual activity: Not on file Other Topics Concern ??? Not on file Social History Narrative ??? Not on file Social Determinants of Health Financial Resource Strain: High Risk (10/29/2023) Financial Resource Strain ??? : 1 Food Insecurity: Food Insecurity Present (10/29/2023) Food Insecurity ??? : 1 ??? : 0 Transportation Needs: Unmet Transportation Needs (10/29/2023) Transportation Needs ??? : 1 Physical Activity: Inactive (10/29/2023) Physical Activity ??? : 0 Stress: No Stress Concern Present (10/29/2023) Stress ??? : 1 Social Connections: Low Risk (10/29/2023) Family and Community Support ??? : 0 ??? : 0 Intimate Partner Violence: Not on file Housing Stability: Low Risk (10/29/2023) Housing Stability ??? : 0 ??? : 0 Living Arrangements: Alone Type of Residence: Private residence Family History: No family history on file. Medications: No current facility-administered medications on file prior to encounter. Current Outpatient Medications on File Prior to Encounter Medication Sig Dispense Refill ??? albuterol HFA (VENTOLIN HFA) 90 mcg/actuation inhaler Inhale 1 puff by mouth via inhaler every 6 (six) hours as needed for wheezing. ??? aspirin 81 MG EC tablet Take 1 tablet (81 mg total) by mouth daily. ??? atorvastatin (LIPITOR) 80 MG tablet Take 1 tablet (80 mg total) by mouth nightly. ??? furosemide (LASIX) 40 MG tablet Take 1 tablet (40 mg total) by mouth daily as needed (Edema). ??? gabapentin (NEURONTIN) 600 MG tablet Take 1 tablet (600 mg total) by mouth 3 (three) times daily. ??? hydrALAZINE (APRESOLINE) 50 MG tablet Take 1 tablet (50 mg total) by mouth 3 (three) times daily Look-alike/Sound-alike medication. ??? insulin detemir U-100 (LEVEMIR) 100 unit/mL (3 mL) InPn injection Inject 0.13 mLs (13 Units total) subcutaneously nightly. ??? isosorbide dinitrate (ISORDIL) 40 MG tablet Take 1 tablet (40 mg total) by mouth 3 (three) times daily. ??? [DISCONTINUED] carvediloL (COREG) 12.5 MG tablet Take 1 tablet (12.5 mg total) by mouth 2 (two)times daily with breakfast and dinner. Review of Systems: Pertinent items are noted in HPI. Physical Exam: Physical Exam Constitutional: General: He is not in acute distress. Appearance: Normal appearance. He is not toxic-appearing or diaphoretic. HENT: Head: Normocephalic and atraumatic. Nose: Nose normal. Mouth/Throat: Mouth: Mucous membranes are moist. Pharynx: Oropharynx is clear. Eyes: Extraocular Movements: Extraocular movements intact. Conjunctiva/sclera: Conjunctivae normal. Pupils: Pupils are equal, round, and reactive to light. Cardiovascular: Rate and Rhythm: Normal rate and regular rhythm. Heart sounds: Normal heart sounds. No murmur heard. No gallop. Pulmonary: Effort: Pulmonary effort is normal. No respiratory distress. Breath sounds: Normal breath sounds. Abdominal: General: Abdomen is flat. Bowel sounds are normal. There is no distension. Palpations: Abdomen is soft. Tenderness: There is no abdominal tenderness. There is no guarding. Musculoskeletal: General: Deformity present. No swelling. Normal range of motion. Cervical back: Normal range of motion and neck supple. Left lower leg: No edema. Comments: Left BKA Skin: General: Skin is warm and dry. Coloration: Skin is not pale. Findings: No erythema. Neurological: General: No focal deficit present. Mental Status: He is alert and oriented to person, place, and time. Cranial Nerves: No cranial nerve deficit. Motor: No weakness. Psychiatric: Mood and Affect: Mood normal. Behavior: Behavior normal. Judgment: Judgment normal. Vitals: Hemodynamic parameters reviewed for last 24 hours. Blood pressure 130/84, pulse 68, temperature 97.9 ??F (36.6 ??C), temperature source Oral, resp. rate 18, height 1.854 m (6' 1 ), weight 80.7 kg (177 lb 14.6 oz), SpO2 100 %. Assessment and Plan: ?? *Ischemic cardiomyopathy, Acute on chronic systolic/diastolic CHF / NYHA class III stage D For volume overload with anasarca on admission LVEF 20 to 25% per OSH echo, 15% reported here as per ECHO 10/29/2023 *Scrotal edema *ASCVD History of prior PCI History of non-STEMI *VHD With aortic regurgitation and mitral regurgitation (echo pending) *Hypertension *Hyperlipidemia *Diabetes mellitus type 2 Insulin-dependent *Peripheral vascular disease History of left talth-rjb-voqe amputation (uses a prosthesis) *LECHUGA cirrhosis *COPD With acute on chronic hypoxemic respiratory failure *Noncompliance *KOKO on CKD stage IV *Cellulitis of the right calf Skin culture obtained on 730 showed Klebsiella and Enterobacter species *Low flow low gradient ?? PLAN: 11/08/2023 Labs and telemetry reviewed, scrotal edema significantly better, may DC home with lifevest on GDMT.Scheduled for outpatient subcutaneous ICD after completing cellulitis treatment. 11/06/2023 Labs and telemetry reviewed. No new events overnight. Some PAC and PVC on the monitor. Keep potassium above 4 and magnesium above 2. 11/05/2023 Labs and telemetry reviewed. Creatinine improving slightly at 3.22. EKG shows sinus rhythm with heart rate in the 60s. 11/04/2023 Labs and telemetry reviewed, creatinine 3.6, continue BB, imdur/hydralazine, additional GDMT can not be introduced due to CKD, he is on Cephalexin and Doxycycline for cellulitis. 11/03/2023 Labs and telemetry reviewed. Life vest provided to patient. Continue diuresis and management of CHFas percardiology team. 11/02/2023 Labs and telemetry reviewed, life vest ordered. Continue Diuresis. Management of cellulitis as per primary team. 11/01/2023 Labs and telemetry reviewed, management of cellulitis as per primary team, will order LifeVest and schedule subcutaneous ICD implant as an outpatient Case discussed with who is the referring physician. 10/31/2023 Labs and tele reviewed, NSVT last night, continue diuresis with monitoring of renal function. Discussed with , patient is not sure what medications he takes, he needs to be on GDMT (BB at least given his renal failure) and needs to show compliance, Also given cellulitis it would be most appropriate at this point to prescribe life vest and have him follow up as outpatient. 10/30/2023 Patient has been placed on GDMT, limitations of increasing and adding guideline directed medical therapy is his renal failure, will increase Toprol-XL dose. Echocardiogram here showed ejection fraction of 15% low-flow low gradient aortic stenosis, patient will require an ICD for primary prevention of sudden cardiac however given recent skin cultures that showed Klebsiella and Enterobacter species, will hold off until we are sure there is no ongoing infection, I examined his right leg which showed no open wounds. I will consider him for subcutaneous ICD once cellulitis/infection is addressed. Continue diuresis and management of congestive heart failure as per cardiology team, nephrology was consulted. 10/29/2023 Telemetry reviewed. Will obtain twelve-lead EKG. We will obtain complete echocardiogram. Agree with initiation of GDMT. Agree with diuresis. We will consult cardiology for assistance with CHF management. We will consult nephrology for assistance with KOKO on CKD. Monitor and replace electrolytes as needed to keep potassium level greater than 4.0 and magnesium greater than 2.0 at all times. BMP and magnesium level pending. Will check TSH and free T4. Discussed wit . Further recommendations pending testing results, clinical course, and response to therapy. Signed: Gilbert Dailey MD 11/08/2023 8:27 PM * Tamara Winters RN - 11/08/2023 1:51 PM EDT 11/08/23 1348 Final Discharge Plan PCP referral provided? No Community Referral Discussed with Patient? Yes Patient appealing discharge? No Does the patient have the ability to fill and receive their discharge medications? Yes Patient returning to prior living situation? Yes Support Systems Family members Discharge Disposition Home;Home Health Agency Type Home Health;Home Oxygen Home Health Name and Number [facility]xygen Name and Number [facility] [place] [phone] Transportation Provider Cleve Date of wind up operator 11/08/23 Time of wind up operator 1500 11/08/23 1348 Final Discharge Plan PCP referral provided? No Community Referral Discussed with Patient? Yes Patient appealing discharge? No Does the patient have the ability to fill and receive their discharge medications? Yes Patient returning to prior living situation? Yes Support Systems Family members Discharge Disposition Home;Home Health Agency Type Home Health;Home Oxygen Home Health Name and Number [facility] Name and Number [facility] [phone] Transportation Provider [place]ve Date of wind up operator 11/08/23 Time of wind up operator 1500 Care Coordination Final Discharge Plan Final Discharge Plan PCP referral provided? No Community Referral Discussed with patient: Yes Patient Appealing Discharge: No Does the patient have ability to fill and recive their discharge medications? Yes Patient returning to prior living situation: Yes Support Systems: Family members Discharge Disposition: Home, Home Health Services Arranged for Discharge: Contact information for follow-up Gilbert Dailey MD Specialty: Cardiology, Respiratory Therapy, Electrophysiology, Electrophysiology - Cardiac [address] [place] [address] [place] [address] Next Steps: Go in 1 month(s) Instructions: EP follow up 12/06/23 @3:00pm Transporation Provider: (Alvin) Cleve CRHISTY Transporation Contact Name: Transportation Provider Phone: Date of wind up operator: (P) 11/08/23 Time of wind up operator: (P) 1500 Patient medically ready for discharge to home. Transportation arranged for 11/08/23 at 1500 via Cleve CHRISTY. MD, patient and RN notified. Patient needs home health and home oxygen. Patient/family provided information to access Medicare.gov Care Compare website to review potential post-acute providers. Choice provided to patient/family, and patient preferences received and referral(s) submitted to requested providers. Care Coordination has seen this patient and completed the need for which we wereconsulted. We will sign off. Please enter a new consult if any further needs arise. Referral(s) submitted to: Home health services arranged with [facility] and home oxygen arranged with [facility]. Tamara Winters RN * Dipika Ron, OTR/Ann - 11/08/2023 12:08 PM EDT Images from the original note were not included. Inpatient Occupational Therapy Treatment Note Patient Name: Robert Hurley Jr. Date of : 1965 Date of Treatment: 11/08/23 Start Time: 1128 Stop Time: 1210 Session Duration: 42 minutes This patient is a 58 y.o. male admitted on 10/29/2023 with Acute on chronic diastolic CHF (congestiveheart failure) ([facility]) [I50.33]. Past 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: Diagnosis Date ??? CHF (congestive heart failure) ([facility]) ??? CKD (chronic kidney disease) ??? COPD (chronic obstructive pulmonary disease) ([facility]) ??? Hx of AKA (above knee amputation), left ([facility]) No past surgical history on file. General Visit type: Treatment Approved by: Nurse Khan Patient disposition upon entry: Patient verified by name, Patient verified by date of , Supinein bed, Call light/pull cord in reach, Head of bed >30 degrees Co-treated by: PT Assisted by: Therapy student Precautions Weightbearing status: Pt with LLE AKA and prosthetic Precautions: Fall risk Isolation precautions: Standard LDA/Brace/Protective equipment: Lines, drains, and airways: pulse oximeter , telemetry Subjective Subjective: Pt agreeable Pain No-patient has no complaints of pain Cognition Cognition: Overall cognitive status: WFL Arousal/alertness: Appropriate response to stimuli Orientation level: Oriented x4 Following commands: Follows all commands and directions without difficulty Deficits: Fully aware of deficits Impulsive: Within functional limits (WFL) Objective Bed mobility:Supine to sit: Contact guard assistance , Head of bed elevated, Use of bedrails Transfers:Sit to stand:Minimal assistance, 2 person assist, Gait belt used Stand to sit:Minimal assistance, 2 person assist, Gait belt used Functional mobility:Contact guard, Gait belt used, Rolling walker used ADLs:Lower body dressing:Minimal Assistance Balance:Static sitting balance:Good: Patient able to maintain balance without handheld support; limited postural sway Dynamic sitting balance:Good: Patient accepts moderate challenge; able to maintain balance while picking object off the floor Static standing balance:Fair: Patient able to maintain balance with handheld support, may require occasional minimal assistance Dynamic standing balance:Fair: Patient accepts minimal challenge; able to maintain balance while turning head/trunk Therapeutic Exercise:UE therapeutic exercise AROM, Shoulder horizontal abduction, Shoulder horizontal adduction, Tricep extension, Green theraband, Other: All therex performed 5 reps x1 set Activity Tolerance Patient limited with activity/intervention due to anxiety Treatment Pt semi supine in bed on arrival and agreed to participate reporting that they are planning to discharge him home his date. Pt agreeable to dressing and fxl mobility. While semi supine in bed, pt required Min A to don shorts with cues for initiation, able to roll and bridge to pull them over hips with cues. Pt then CGA to sit EOB. After sitting EOB, pt donned prosthetic in standing with Min A x. Pt then able to complete fxl mobility short household distance with use of CGA/Min A and RWx as wellas LLE prosthetic. Upon return to room, agreed to sit in chair. Pt was becoming anxious per his report about his discharge home as his equipment is in his home and he is currently needing either a walker to walk to door or roll himself to the door/through the door duing the wheelchair. Message alsosent to case specialist regarding these potential barriers, as well as use of a BSC from over the toilet to assist with getting off of the toilet. Pt stated his shorts were too big and falling off, so paper scrubs were obtained and pt was Max A for donning scrub pants after doffing shorts with Min A. Pt demonstrates potential to complete LB dressing tasks more independently with cues in future sessions. Pt left semi supine in bed with all needs met and call light in reach. Assessment Assessment Pt demonstrated good participation, effort, and motivation throughout treatment session, although requires cues for initiation for LB dressing tasks; however, did have good/approriate flexibility/strength needed for LB dressing tasks. Pt continues to benefit from skilled OT services during acute care stay to promote best functional outcome and is making progress toward goals. Plan Recommendations Discharge recommendations: Patient would benefit from 3 hours of intensive multidisciplinary therapy per day to maximize functional outcomes and address functional limitations to return to highest level of functioning. DME recommendations: Patient would benefit from bedside commode at discharge. Treatment Plan: Adaptive equipment training, ADL training, Co-treat with physical therapy, DME recommendations , Functional mobility/transfer training, Home modification recommendations , Home program instruction, Other activities to increase UE function, Patient/family/caregiver education, Safety training, Strengthening OT Frequency/Duration: 3x/week for 14 days Goals Bathing:sponge bath seated??with modified independence. Lower body dressing:??donning and doffing lower body clothing, at bed level??with modified independence. Functional transfers:??stand pivot transfer,??with rolling walker??with modified independence. ?? Target Date:?11/14/2023 Goals were discussed with patient Progress towards goals: progressing Education Patient educated on safety, use of call light, role of occupational therapy, patient's plan of care, ADLs and following, they were able to verbalize understanding. Patient Disposition Upon Leaving Patient Disposition: Sitting in bedside chair, All needs met and within reach, Call light/pull cordin reach, Feet lowered, Nursing aware/notified If this patient discharges prior to next therapy session, this note serves as the patient's discharge summary. Electronically signed by Dipika Ron OTR/L - 11/08/2023 - 2:14 PM EDT * Julitete Brandt, PT - 11/08/2023 11:28 AM EDT Images from the original note were not included. Inpatient Physical Therapy Treatment Patient Name: Robert Hurley Jr. Date of : 1965 Date of Treatment: 11/08/23 Start Time 1128 Stop Time 1210 Session Duration 42 minutes General Visit Type: Treatment Approved by: Nurse Khan Patient Disposition Upon Entry: Supine in bed, Nursing aware/notified, Bed Alarm applied Patient Verified By: Name and Date of Co-treated by: OT Assisted by: PT student Precautions Weight-Bearing Status: No Restrictions Precautions: Fall risk Isolation Precautions: Standard Lines, tubes, drains, airway: nasal cannula , telemetry Subjective Subjective: Patient agreeable to physical therapy treatment. Reports he is supposed to discharge home today and does not have anyone to help him get into his home and he has 2-3 stairs to enter. He reports he would like help getting his prosthetic on. Pain No - Patient not reporting pain at this time Cognition Overall cognitive status: WFL Arousal/Alertness: Appropriate response to stimuli Attention Span: Appears intact Following commands: Follows all commands and directions without difficulty Safety Judgment: Decreased awareness of need for assistance Objective Vitals Functional Mobility Bed Mobility: Supine to Sit: contact guard assist, HOB elevated, use of bed features Transfers Sit to Stand: minimal assistance, 2-person assist, gait belt used, rolling walker used (from EOB, min A x 1 from chair) Stand to Sit: minimal assistance, 1-person assist, gait belt used, rolling walker used Gait Gait Assistance: contact guard assist Assistive Device: Gait Belt, Rolling walker Distance: 30 ft Gait speed: slow dilshad Deviation(s): left decreased stance time, increased trunk flexion Stair Management Unable to assess due to weakness and impaired balance . Wheelchair Mobility Not assessed, patient ambulatory. AM-PAC Basic Mobility Inpatient Short Form How much difficulty does the patient currently have: Turning over in bed (including adjusting bedclothes, sheets, and blankets)? (2) A lot (can do the activity without assistive devices or help from another person, but requires A LOT more effort and/ortime) Sitting down on and standing up from a chair with arms (e.g., wheelchair, bedside commode, etc.)? (1) Total/Unable (not able to do the activity or can only perform the activity using assistive devices or requires assistance from another person, including supervision or cueing for safety) Moving from lying on back to sitting on side of bed? (1) Total/Unable (not able to do the activity or can only perform the activity using assistive devices or requires assistance from another person,including supervision or cueing for safety) How much help from another person does the patient currently need: Moving to and from a bed to a chair (including a wheelchair)? (3) A little (Minimal/Contact guard/Supervision/Setup) Need to walk in hospital room? (3) A little (Minimal/Contact guard/Supervision/Setup) Climbing 3-5 steps with a railing? (1) Total/Unable (Total assist/dependent) Score Raw score=11 t-Scale score=33.86 Standard error=3.22 CMS 0-100%=72.57% MDC=4.72 A raw score of >= 16 is significantly associated with increased odds of discharge to home in addition to consideration made for the patient's cognition and social determinants of health. Balance Static/dynamic sitting and static/dynamic standing balance grades Balance Grade Sitting Static Good - patient able to maintain balance without handhold support, limited postural sway Sitting Dynamic Good - patient accepts moderate challenge; able to maintain balance while picking object off floor Standing Static Fair - patient able to maintain balance with handhold support; may require occasional minimal assistance Standing Dynamic Fair - patient accepts minimal challenge; able to maintain balance while turning head/trunk Activity Tolerance Patient limited with activity/intervention due to fatigue Treatment Pt assisted with donning shorts in supine, assisted supine to sit. Pt able to partially don prosthetic with set-up, complete sit to stand and fully don prosthetic in standing with RWx. Pt amb as described above then completed stand to sit in bedside chair. Pt c/o his shorts being too loose and falling down and did not want to wear these home so offered pt disposable scrub pants. Pt stood 2 more times from chair to doff shorts and don disposable scrub pants. Pt then stood partially a 3rd time for chair alarm to be placed. Assessment Pt is progressing and was able to ambulate a short distance with his prosthetic donned today, but fatigues quickly and is unsteady. Pt can benefit from continued PTx if he does not discharge as planned. Pt could benefit from rehab. Problems: Decreased functional mobility, Decreased gait tolerance, Decreased strength, Decreased activity tolerance, Impaired sitting balance, Impaired standing balance, Impaired dynamic balance, Gait impairment Rehab potential: Good for stated goals Plan Treatment plan: Continue per POC. PT Frequency/Duration: 5x/week for 14 days Recommendations Discharge recommendations: Patient would benefit from 3 hours of intensive multidisciplinary therapy per day to maximize functional outcomes and address functional limitations to return to highest level of functioning. DME recommendations: Patient would benefit from the use of a BSC upon discharge. Per the patient, the patient does not have access to the recommended DME/adaptive equipment. Due to pt's current mobility status he would be confined to one room and in need of a BSC to decrease fall risk. Goals Supine to/from sit:??Complete ind?? Gait:??complete 50' with min A x1 with RWx with or without prosthesis (revised 11/08/23) Stair Negotiation:??complete 3 steps with Min A x1 with RWx without prosthesis Transfer:??complete Calista with RWx bed to/from Target Date:?11/14/2023 Progress towards goals: progressing Education Patient educated on safety, use of call button, role of physical therapy, plan of care, ambulation,transfers and bed mobility and following, they were able to verbalize and demonstrate understanding. No further questions or concerns stated. Patient Disposition Upon Leaving Patient in bedside chair, Call Light/Pull Cord in reach, All needs met and within reach, Nursing aware/notified, Chair Alarm applied If this patient discharges prior to next therapy session, this note serves as the patient's discharge summary. Electronically signed by Juliette Brandt PT - 11/08/23 - 1:24 PM EDT * Tamara Winters RN - 11/08/2023 11:17 AM EDT Patient Name: Robert Hurley Jr. Date of : 1965 Insurance: Primary Coverage (Medicaid) Authorization number: [id number] Subscriber number: [id number] Admission Date: 10/29/2023 Admission Diagnosis: Acute on chronic diastolic CHF (congestive heart failure) (HCC) [I50.33] Hospital Room: [address] [place] [address] Requesting Transport Tamara Winters RN Oxygen Documentation from Nursing Flowsheets: Oxygen Therapy/Pulse Ox Oxygen Therapy: Supplemental oxygen O2 Delivery Method: Nasal cannula O2 Flow Rate (L/min): 2 L/min SpO2: 96 % Patient Activity During SpO2 Measurement: At rest Safety Instructions: Yes (Comment) $ Oxygen per 12 hours: Yes $ Pulse Oximetry Spot Check: Single $0 Patient Assessment Charge: Subsequent Ht Readings from Last 3 Encounters: 10/29/23 1.854 m (6' 1 ) Wt Readings from Last 3 Encounters: 11/07/23 80.7 kg (177 lb 14.6 oz) Current Code Status Full code Isolation precautions: No active isolations Transport Type Requested: [facility] W/C PCS Justification: PCS Justification: Significant Weakness Monitoring Required: Oxygen Administration Destination Type: Destination Types: Home Destination Address: [address] [place] [address] Destination Date Transport is Needed: 11/08/23 Phone Number for [facility]: [phone] Can the patient pay for transportation? No * Monika Pennington MD - 11/07/2023 7:06 PM EDT Subjective History of Present Illness: Patient is very poor historian Robert Hurley Jr. is a 58 y.o. male with history of CKD 4 with base creatinine close to ~3, DM,HTN,CHF, left AKA ,difficulty accessing health care resources and keeping follow ups,noncompliance??who presented to [facility] on 10/25 for evaluation of several days of worsening shortness ofbreath and scrotal edema. [facility] as above ,He had echocardiogram done showing EF of 20-25% and was transferred to [facility] for EP evaluation of AICD. ? Yesterday Labs at OSH showed wbc 3.5, hgb 10.5, plt 201, sodium 138, potassium 5.0, creatinine 3.3,mag 2.0. Nephrology was consulted for Renal failure and Volume management 11/06: resting on bed , no new issues Review of Systems Constitutional: Negative. HENT: Negative. Eyes: Negative. Respiratory: Positive for shortness of breath. Cardiovascular: Negative. Gastrointestinal: Negative. Genitourinary: Negative. Skin: Negative. Neurological: Positive for weakness. Psychiatric/Behavioral: Negative. Objective Last Recorded Vitals Blood pressure (!) 149/95, pulse 69, temperature 98.1 ??F (36.7 ??C), temperature source Oral, resp. rate 16, height 1.854 m (6' 1 ), weight 80.7 kg (177 lb 14.6 oz), SpO2 98 %. Physical Exam Constitutional: Appearance: Normal appearance. HENT: Head: Normocephalic and atraumatic. Nose: Nose normal. Mouth/Throat: Mouth: Mucous membranes are moist. Eyes: Extraocular Movements: Extraocular movements intact. Pupils: Pupils are equal, round, and reactive to light. Cardiovascular: Rate and Rhythm: Normal rate and regular rhythm. Heart sounds: Normal heart sounds. Pulmonary: Breath sounds: Normal breath sounds. Abdominal: General: Abdomen is flat. Palpations: Abdomen is soft. Musculoskeletal: Cervical back: Normal range of motion and neck supple. Skin: General: Skin is warm and dry. Neurological: Mental Status: He is alert and oriented to person, place, and time. Psychiatric: Mood and Affect: Mood normal. Behavior: Behavior normal. Labs: Results for orders placed or performed during the hospital encounter of 10/29/23 (from the past 24 hour(s)) Glucose, Nova Meter Status: Abnormal Collection Time: 11/06/23 7:51 PM Result Value Ref Range POC-GLUCOSE 163 (H) 70 - 110 mg/dL Loom Operator Apprentice [id number] Glucose, Nova Meter Status: Abnormal Collection Time: 11/07/23 7:38 AM Result Value Ref Range POC-GLUCOSE 115 (H) 70 - 110 mg/dL Loom Operator Apprentice [id number] Magnesium Status: Normal Collection Time: 11/07/23 8:39 AM Result Value Ref Range Magnesium 2.0 1.5 - 2.4 mg/dL CBC with automated diff Status: Abnormal Collection Time: 11/07/23 8:39 AM Result Value Ref Range WBC 4.3 4.2 - 9.1 K/??L RBC 4.31 (L) 4.63 - 6.08 M/??L Hemoglobin 10.5 (L) 13.7 - 17.5 GM/DL Hematocrit 34.9 (L) 40.1 - 51.0 % MCV 81 79 - 92 fL MCH 24.4 (L) 25.7 - 32.2 pg MCHC 30.1 (L) 32.3 - 36.5 GM/DL RDW 16.7 (H) 11.6 - 14.4 % Platelets 191 140 - 375 K/CU MM MPV 10.6 9.4 - 12.4 fL % Neutros 58 34 - 68 % % Lymphs 30 22 - 53 % % Monos 10 5 - 12 % % Eos 2 1 - 7 % % Baso 1 0 - 1 % NRBC Absolute <0.01 0 - 0.012 K/ul # Neutros 2.48 1.78 - 5.38 K/??L # Lymphs 1.27 (L) 1.32 - 3.57 K/??L # Monos 0.43 0.30 - 0.82 K/??L # Eos 0.08 0.04 - 0.54 K/??L # Baso <0.03 0.01 - 0.08 K/??L Immature Granulocytes-Relative 0.50 (H) 0.01 - 0.43 % # IG <0.03 0.00 - 0.03 K/uL Basic Metabolic Panel Status: Abnormal Collection Time: 11/07/23 8:39 AM Result Value Ref Range Sodium 137 136 - 146 meq/L Potassium 4.6 3.5 - 5.1 meq/L Chloride 105 102 - 112 meq/L CO2 29 21 - 32 meq/L Anion Gap 8 (L) 9 - 20 BUN 61 (H) 7 - 22 mg/dL Creatinine 3.00 (H) 0.70 - 1.30 mg/dL BUN/Creatinine 20 8 - 20 Glucose 118 (H) 74 - 106 mg/dL Calcium 8.6 8.4 - 10.1 mg/dL Osmolality Calc 292.2 eGFR (mL/min/1.73m2) 24 (L) >=60 mL/min/1.73m2 Glucose, Nova Meter Status: Abnormal Collection Time: 11/07/23 11:15 AM Result Value Ref Range POC-GLUCOSE 180 (H) 70 - 110 mg/dL Loom Operator Apprentice [id number] Glucose, Nova Meter Status: Abnormal Collection Time: 11/07/23 5:39 PM Result Value Ref Range POC-GLUCOSE 165 (H) 70 - 110 mg/dL Loom Operator Apprentice [id number] XR chest AP portable Narrative: PORTABLE CHEST. 11/07/2023 7:11 AM HISTORY: Shortness of breath, CHF. COMPARISON: 1 day prior. FINDINGS: The cardiac silhouette demonstrates cardiomegaly. The mediastinum is unremarkable. There is no change in the pulmonary vascular congestion and probable mild interstitial edema. There are no significant pleural effusions. There is no pneumothorax. Impression: No significant interval change. Images reviewed, interpreted, and dictated by Dr. Enzo Alonso. Transcribed by Kayla Shaffer PA-C. Assessment 1. Acute on chronic CKD stage IV, secondary to cardiorenal syndrome type I 2. Chronic kidney disease stage IV secondary to type II cardiorenal, syndrome/hypertensive nephrosclerosis and diabetic nephropathy Repeated Echo with EF:~10-15 %, base creatine ~3 3. Volume overload 4. Anemia 5. Acute combined systolic and diastolic exacerbation of CHF with repeated ejection fraction of 10-15% 6. Type 2 diabetes 7. Peripheral vascular disease/coronary artery disease 8. Hypertension 9. History of COPD Plan -Optimization of cardiac function as per cardiology, patient is on cardioprotective medications, Entresto, Jardiance on hold due to worsening kidney function -Continue with loop diuretics Bumex 2 mg q am -Creatinine 3.0 at base ,electrolytes are okay -Avoid nephrotoxins, keep MAP above 65 -Strict intake and output -Renally dose medications -No need for CONSTRUCTION ENGINEERING MANAGER at present time. -Thanks for consultation for along with you ?? [facility] [address] [place] [place], [place], [address] Phone #[phone] Fax #[phone] High complex case * Bing Sebastian, - 11/07/2023 12:14 PM EDT [employer] Progress Note Patient: Robert Hurley Jr. Subjective Chief Complaint / Reason for Follow-Up Robert Hurley Jr. is a 58 y.o. male on hospital day 9. The principal reason for today's follow up visit is Acute on chronic diastolic CHF (congestive heart failure) (HCC). Interval History Patient seen and evaluated this morning No acute events overnight Hemodynamics and labs for past 24 hours reviewed Patient still wanting rehab placement today, I discussed with him that we are still awaiting as it is challenging sometimes when patients are being discharged with a Life[employer]est Review of Systems denies Objective Vitals: Temp: [97.9 ??F (36.6 ??C)-98.4 ??F (36.9 ??C)] 97.9 ??F (36.6 ??C) Pulse: [53-72] 70 Resp: [16-18] 16 BP: (131-156)/(87-106) 150/103 Intake/Output: Intake/Output Summary (Last 24 hours) at 11/07/2023 1214 Last data filed at 11/07/2023 0900 Gross per 24 hour Intake 440 ml Output 150 ml Net 290 ml Physical exam: Gen: Chronically ill appearing disheveled male resting comfortably, no acute distress HEENT: PERRL, EOMI CVS: RRR, no murmurs, no edema Lung: Bibasilar crackles, no increased WOB, nasal cannula in place Abd: Soft non-distended Skin: Chronic venous stasis in RLE, extensive, onychomycosis RLE MSK: Left AKA Labs: Recent Labs Lab(s) Units 11/07/23 1115 11/07/23 0839 11/07/23 0738 11/06/23 0713 11/06/23 0458 11/06/23 0457 11/05/23 0730 11/05/23 0327 WBC K/??L -- 4.3 -- -- -- 3.6* -- 3.8* HGB GM/DL -- 10.5* -- -- -- 10.5* -- 10.4* HCT % -- 34.9* -- -- -- 35.2* -- 34.8* PLT K/CU MM -- 191 -- -- -- 199 -- 194 MG mg/dL -- 2.0 -- -- 2.1 -- -- 2.2 NA meq/L -- 137 -- -- 136 -- -- 138 K meq/L -- 4.6 -- -- 4.8 -- -- 4.3 CL meq/L -- 105 -- -- 102 -- -- 102 CO2 meq/L -- 29 -- -- 31 -- -- 32 BUN mg/dL -- 61* -- -- 61* -- -- 58* CREATININE mg/dL -- 3.00* -- -- 3.43* -- -- 3.25* EGFR mL/min/1.73m2 -- 24* -- -- 20* -- -- 21* GLUCOSE mg/dL 180* 118* 115* < > 135* -- < > 103 CALCIUM mg/dL -- 8.6 -- -- 8.9 -- -- 9.0 < > = values in this interval not displayed. Results for orders placed or performed during the hospital encounter of 10/29/23 (from the past 24 hour(s)) Glucose, Nova Meter Status: Abnormal Collection Time: 11/06/23 4:17 PM Result Value Ref Range POC-GLUCOSE 156 (H) 70 - 110 mg/dL Loom Operator Apprentice [id number] Glucose, Nova Meter Status: Abnormal Collection Time: 11/06/23 7:51 PM Result Value Ref Range POC-GLUCOSE 163 (H) 70 - 110 mg/dL Loom Operator Apprentice [id number] Glucose, Nova Meter Status: Abnormal Collection Time: 11/07/23 7:38 AM Result Value Ref Range POC-GLUCOSE 115 (H) 70 - 110 mg/dL Loom Operator Apprentice [id number] Magnesium Status: Normal Collection Time: 11/07/23 8:39 AM Result Value Ref Range Magnesium 2.0 1.5 - 2.4 mg/dL CBC with automated diff Status: Abnormal Collection Time: 11/07/23 8:39 AM Result Value Ref Range WBC 4.3 4.2 - 9.1 K/??L RBC 4.31 (L) 4.63 - 6.08 M/??L Hemoglobin 10.5 (L) 13.7 - 17.5 GM/DL Hematocrit 34.9 (L) 40.1 - 51.0 % MCV 81 79 - 92 fL MCH 24.4 (L) 25.7 - 32.2 pg MCHC 30.1 (L) 32.3 - 36.5 GM/DL RDW 16.7 (H) 11.6 - 14.4 % Platelets 191 140 - 375 K/CU MM MPV 10.6 9.4 - 12.4 fL % Neutros 58 34 - 68 % % Lymphs 30 22 - 53 % % Monos 10 5 - 12 % % Eos 2 1 - 7 % % Baso 1 0 - 1 % NRBC Absolute <0.01 0 - 0.012 K/ul # Neutros 2.48 1.78 - 5.38 K/??L # Lymphs 1.27 (L) 1.32 - 3.57 K/??L # Monos 0.43 0.30 - 0.82 K/??L # Eos 0.08 0.04 - 0.54 K/??L # Baso <0.03 0.01 - 0.08 K/??L Immature Granulocytes-Relative 0.50 (H) 0.01 - 0.43 % # IG <0.03 0.00 - 0.03 K/uL Basic Metabolic Panel Status: Abnormal Collection Time: 11/07/23 8:39 AM Result Value Ref Range Sodium 137 136 - 146 meq/L Potassium 4.6 3.5 - 5.1 meq/L Chloride 105 102 - 112 meq/L CO2 29 21 - 32 meq/L Anion Gap 8 (L) 9 - 20 BUN 61 (H) 7 - 22 mg/dL Creatinine 3.00 (H) 0.70 - 1.30 mg/dL BUN/Creatinine 20 8 - 20 Glucose 118 (H) 74 - 106 mg/dL Calcium 8.6 8.4 - 10.1 mg/dL Osmolality Calc 292.2 eGFR (mL/min/1.73m2) 24 (L) >=60 mL/min/1.73m2 Glucose, Nova Meter Status: Abnormal Collection Time: 11/07/23 11:15 AM Result Value Ref Range POC-GLUCOSE 180 (H) 70 - 110 mg/dL Loom Operator Apprentice [id number] Radiology: XR chest AP portable Final Result No significant interval change. Images reviewed, interpreted, and dictated by Dr. Enzo Alonso. Transcribed by Kayla Shaffer PA-C. XR chest AP portable Final Result Mild improvement in the pulmonary vascular congestion. Images reviewed, interpreted, and dictated by Dr. Enzo Alonso. Transcribed by Kayla Shaffer PA-C. XR chest AP portable Final Result Worsening interstitial opacities which may be secondary to edema. Images reviewed, interpreted, and dictated by Dr. Stephon Cedillo. Transcribed by Isma Brian PA-C XR chest AP portable Final Result Improving aeration. Images reviewed, interpreted, and dictated by Dr. Frandy Stauffer. Transcribed by Brad Hernandez PA-C. XR chest AP portable Final Result Vascular congestion and interstitial opacity likely related to mild edema. Images reviewed, interpreted, and dictated by Dr. Stephon Cedillo. Transcribed by Brad Hernandez PA-C. XR chest AP portable Final Result Mild cardiomegaly with pulmonary vascular congestion. Images reviewed, interpreted, and dictated by Dr. Stephon Cedillo. Transcribed by Lia Hawk PA-C. ECHO COMPLETE (DOPPLER / COLOR) W OR WO CONTRAST Final Result XR chest AP portable Final Result 1. Cardiomegaly and mild interstitial opacity favored to be chronic. Follow-up better inflated PA and lateral chest radiograph may be of value. Images reviewed, interpreted, and dictated by Stephon Cedillo MD Medications: Scheduled Meds: ??? ammonium lactate topical BID Given at 11/07/23 0814 ??? aspirin 81 mg oral Daily 81 mg at 11/07/23 08 ??? atorvastatin 80 mg oral Every Night 80 mg at 11/06/232145 ??? bumetanide 2 mg oral Daily 2 mg at 11/07/23 08 ??? cephalexin 250 mg oral Q8H 250 mg at 11/07/23 0405 ??? doxycycline 100 mg oral Q12H 100 mg at 11/07/23 08 ??? [Held by provider] empagliflozin 10 mg oral Daily 10 mg at 10/30/23 0831 ??? heparin 5,000 Units subcutaneous Q12H 5,000 Units at 11/07/23 0814 ??? hydrALAZINE 10 mg oral Q8H 10 mg at 11/07/23 0405 ??? hydrocortisone topical BID Given at 11/07/23 0814 ??? insulin glargine 10 Units subcutaneous Every Night 10 Units at 11/06/23 2146 ??? insulin lispro 0-18 Units subcutaneous 4x Daily AC 3 Units at 11/07/23 1149 ??? isosorbide dinitrate 10 mg oral TID 10 mg at 11/07/23 08 ??? loratadine 10 mg oral Daily 10 mg at 11/07/23 08 ??? melatonin 3 mg oral Every Night 3 mg at 11/06/236 ??? metoprolol succinate 75 mg oral Daily 75 mg at 11/07/23 08 ??? nicotine 1 patch transdermal Daily ??? [Held by provider] sacubitriL-valsartan 1 tablet oral BID 1 tablet at 10/30/23 0831 Continuous Infusions: PRN Meds: ??? acetaminophen ??? dextrose ??? glucagon ??? glucose ??? hydrOXYzine ??? ipratropium-albuteroL ??? ondansetron Or ??? ondansetron PF ??? oxyCODONE ??? oxyCODONE Assessment and Plan Primary Diagnosis: Acute decompensated HF Secondary Diagnosis: Principal Problem: Acute on chronic diastolic CHF (congestive heart failure) (HCC) #Acute on chronic systolic decompensated HF: #Anasarca - NYHA III, stage D - EF 20-25% at OSH-->15% at our facility - Continue Toprol 75 mg daily - Continue isordil 10 mg TID - Continue hydralazine 10 mg daily - Lifevest delivered and at bedside - EP and cardiology following - GDMT limited in setting of renal insufficiency - Continue p.o. Bumex 1 mg twice daily - Labs reviewed: Serum creatinine improved down to 3.0, potassium 4.6, BUN 61, magnesium 2.0 #KOKO on CKD: - External records from [facility] ; baseline appears to be 2.6-3.0 from earlier 2023 in may - Serum creatinine improved down to baseline now at 3.0 #RLE cellulitis: - Baseline chronic venous stasis with superimposed cellulitis - Cultures from OSH with klebsiella and enterobacter - Continue p.o. Doxy and Keflex end date 11/07, last day is today #Aortic stenosis: EF 15% on echo with low flow low gradient #Tobacco use disorder: - Continue NRT #LECHUGA Cirrhosis: - Outpatient follow up #Diabetes: - Continue lantus 10 units qhs - Continue SSI Diet: Orders Placed This Encounter Procedures ??? Consistent Carbohydrate Additional Modifiers: Heart Healthy, 2 gram Sodium DVT ppx: SQH Code Status: Full Code Discharge Planning: Barriers to discharge: awaiting IPR, medically ready Expected (tentative) discharge in 2-3 days Expected discharge disposition (home, SNF/Rehab, etc): [facility] Additional discharge needs or delays: TBD Signed: DO [facility] * Monika Pennington MD - 11/06/2023 8:13 PM EDT Subjective History of Present Illness: Patient is very poor historian Robert Hurley Jr. is a 58 y.o. male with history of CKD 4 with base creatinine close to ~3, DM,HTN,CHF, left AKA ,difficulty accessing health care resources and keeping follow ups,noncompliance??who presented to [facility] on 10/25 for evaluation of several days of worsening shortness ofbreath and scrotal edema. [facility] as above ,He had echocardiogram done showing EF of 20-25% and was transferred to [facility] for EP evaluation of AICD. ? Yesterday Labs at OSH showed wbc 3.5, hgb 10.5, plt 201, sodium 138, potassium 5.0, creatinine 3.3,mag 2.0. Nephrology was consulted for Renal failure and Volume management 11/05: resting on bed , no new issues Review of Systems Constitutional: Negative. HENT: Negative. Eyes: Negative. Respiratory: Positive for shortness of breath. Cardiovascular: Negative. Gastrointestinal: Negative. Genitourinary: Negative. Skin: Negative. Neurological: Positive for weakness. Psychiatric/Behavioral: Negative. Objective Last Recorded Vitals Blood pressure (!) 159/106, pulse 70, temperature 98 ??F (36.7 ??C), temperature source Oral, resp.rate 18, height 1.854 m (6' 1 ), weight 82.8 kg (182 lb 8 oz), SpO2 96 %. Physical Exam Constitutional: Appearance: Normal appearance. HENT: Head: Normocephalic and atraumatic. Nose: Nose normal. Mouth/Throat: Mouth: Mucous membranes are moist. Eyes: Extraocular Movements: Extraocular movements intact. Pupils: Pupils are equal, round, and reactive to light. Cardiovascular: Rate and Rhythm: Normal rate and regular rhythm. Heart sounds: Normal heart sounds. Pulmonary: Breath sounds: Normal breath sounds. Abdominal: General: Abdomen is flat. Palpations: Abdomen is soft. Musculoskeletal: Cervical back: Normal range of motion and neck supple. Skin: General: Skin is warm and dry. Neurological: Mental Status: He is alert and oriented to person, place, and time. Psychiatric: Mood and Affect: Mood normal. Behavior: Behavior normal. Labs: Results for orders placed or performed during the hospital encounter of 10/29/23 (from the past 24 hour(s)) CBC with automated diff Status: Abnormal Collection Time: 11/06/23 4:57 AM Result Value Ref Range WBC 3.6 (L) 4.2 - 9.1 K/??L RBC 4.29 (L) 4.63 - 6.08 M/??L Hemoglobin 10.5 (L) 13.7 - 17.5 GM/DL Hematocrit 35.2 (L) 40.1 - 51.0 % MCV 82 79 - 92 fL MCH 24.5 (L) 25.7 - 32.2 pg MCHC 29.8 (L) 32.3 - 36.5 GM/DL RDW 16.7 (H) 11.6 - 14.4 % Platelets 199 140 - 375 K/CU MM MPV 11.3 9.4 - 12.4 fL NRBC Absolute <0.01 0 - 0.012 K/ul Manual Differential Status: Abnormal Collection Time: 11/06/23 4:57 AM Result Value Ref Range Total Counted 100 % Neutros (manual) 62 50 - 65 % % Lymphs (manual) 29 24 - 44 % % Monos (manual) 6 (H) 4 - 5 % % Eos (manual) 3 0 - 3 % RBC Morphology abnormal (A) Normal Platelet Estimate Adequate Adequate Anisocytosis 1+ Ovalocytes 1+ ANC# 2.23 K/??L Basic Metabolic Panel Status: Abnormal Collection Time: 11/06/23 4:58 AM Result Value Ref Range Sodium 136 136 - 146 meq/L Potassium 4.8 3.5 - 5.1 meq/L Chloride 102 102 - 112 meq/L CO2 31 21 - 32 meq/L Anion Gap 8 (L) 9 - 20 BUN 61 (H) 7 - 22 mg/dL Creatinine 3.43 (H) 0.70 - 1.30 mg/dL BUN/Creatinine 18 8 - 20 Glucose 135 (H) 74 - 106 mg/dL Calcium 8.9 8.4 - 10.1 mg/dL Osmolality Calc 291.2 eGFR (mL/min/1.73m2) 20 (L) >=60 mL/min/1.73m2 Magnesium Status: Normal Collection Time: 11/06/23 4:58 AM Result Value Ref Range Magnesium 2.1 1.5 - 2.4 mg/dL Glucose, Nova Meter Status: Abnormal Collection Time: 11/06/23 7:13 AM Result Value Ref Range POC-GLUCOSE 121 (H) 70 - 110 mg/dL Loom Operator Apprentice [id number] Glucose, Nova Meter Status: Abnormal Collection Time: 11/06/23 11:03 AM Result Value Ref Range POC-GLUCOSE 166 (H) 70 - 110 mg/dL Loom Operator Apprentice [id number] Glucose, Nova Meter Status: Abnormal Collection Time: 11/06/23 4:17 PM Result Value Ref Range POC-GLUCOSE 156 (H) 70 - 110 mg/dL Loom Operator Apprentice [id number] Glucose, Nova Meter Status: Abnormal Collection Time: 11/06/23 7:51 PM Result Value Ref Range POC-GLUCOSE 163 (H) 70 - 110 mg/dL Loom Operator Apprentice [id number] XR chest AP portable Narrative: PORTABLE CHEST. 11/06/2023 8:00 AM HISTORY: Shortness of breath, CHF. COMPARISON: 1 day prior. FINDINGS: The cardiac silhouette demonstrates cardiomegaly. The mediastinum is unremarkable. There is mild improvement in the pulmonary vascular congestion. There is no pulmonary edema. There is no pneumothorax. Impression: Mild improvement in the pulmonary vascular congestion. Images reviewed, interpreted, and dictated by Dr. Enzo Alonso. Transcribed by Kayla Shaffer PA-C. Assessment 1. Acute on chronic CKD stage IV, secondary to cardiorenal syndrome type I 2. Chronic kidney disease stage IV secondary to type II cardiorenal, syndrome/hypertensive nephrosclerosis and diabetic nephropathy Repeated Echo with EF:~10-15 %, base creatine ~3 3. Volume overload 4. Anemia 5. Acute combined systolic and diastolic exacerbation of CHF with repeated ejection fraction of 10-15% 6. Type 2 diabetes 7. Peripheral vascular disease/coronary artery disease 8. Hypertension 9. History of COPD Plan -Optimization of cardiac function as per cardiology, patient is on cardioprotective medications, Entresto, Jardiance on hold due to worsening kidney function -Continue with loop diuretics Bumex 2 mg q am,UOP?could adjust up if needed ,received an extra doseof IV Bumex -Creatinine 3.4 close to base ,electrolytes are okay -Avoid nephrotoxins, keep MAP above 65 -Strict intake and output -Renally dose medications -No need for CONSTRUCTION ENGINEERING MANAGER at present time. -Thanks for consultation for along with you ?? [facility] [address] [place], [place], [address] Phone #[phone] Fax #[phone] High complex case * Bing Sebastian, DO - 11/06/2023 1:41 PM EDT [facility] Progress Note Patient: Robert Hurley Jr. Subjective Chief Complaint / Reason for Follow-Up Robert Hurley Jr. is a 58 y.o. male on hospital day 8. The principal reason for today's follow up visit is Acute on chronic diastolic CHF (congestive heart failure) (HCC). Interval History Patient seen and evaluated this morning No acute events overnight Hemodynamics and labs for past 24 hours reviewed Review of Systems denies Objective Vitals: Temp: [97.9 ??F (36.6 ??C)-98.1 ??F (36.7 ??C)] 98 ??F (36.7 ??C) Pulse: [53-70] 70 Resp: [18] 18 BP: (118-159)/(85-106) 159/106 Intake/Output: Intake/Output Summary (Last 24 hours) at 11/06/2023 1341 Last data filed at 11/06/2023 0000 Gross per 24 hour Intake 240 ml Output 0 ml Net 240 ml Physical exam: Gen: Chronically ill appearing disheveled male resting comfortably, no acute distress HEENT: PERRL, EOMI CVS: RRR, no murmurs, no edema Lung: Bibasilar crackles, no increased WOB, nasal cannula in place Abd: Soft non-distended Skin: Chronic venous stasis in RLE, extensive, onychomycosis RLE MSK: Left AKA Labs: Recent Labs Lab(s) Units 11/06/23 1103 11/06/23 0713 11/06/23 0458 11/06/23 0457 11/05/23 0730 11/05/23 0327 11/04/23 1619 11/04/23 1448 WBC K/??L -- -- -- 3.6* -- 3.8* -- 4.0* HGB GM/DL -- -- -- 10.5* -- 10.4* -- 10.5* HCT % -- -- -- 35.2* -- 34.8* -- 34.8* PLT K/CU MM -- -- -- 199 -- 194 -- 196 MG mg/dL -- -- 2.1 -- -- 2.2 -- 2.2 NA meq/L -- -- 136 -- -- 138 -- 137 K meq/L -- -- 4.8 -- -- 4.3 -- 4.8 CL meq/L -- -- 102 -- -- 102 -- 100* CO2 meq/L -- -- 31 -- -- 32 -- 33* BUN mg/dL -- -- 61* -- -- 58* -- 56* CREATININE mg/dL -- -- 3.43* -- -- 3.25* -- 3.46* EGFR mL/min/1.73m2 -- -- 20* -- -- 21* -- 20* GLUCOSE mg/dL 166* 121* 135* -- < > 103 < > 108* CALCIUM mg/dL -- -- 8.9 -- -- 9.0 -- 9.1 < > = values in this interval not displayed. Results for orders placed or performed during the hospital encounter of 10/29/23 (from the past 24 hour(s)) Glucose, Nova Meter Status: Abnormal Collection Time: 11/05/23 5:14 PM Result Value Ref Range POC-GLUCOSE 185 (H) 70 - 110 mg/dL Loom Operator Apprentice [id number] Glucose, Nova Meter Status: None Collection Time: 11/05/23 7:28 PM Result Value Ref Range POC-GLUCOSE 95 70 - 110 mg/dL Loom Operator Apprentice [id number] CBC with automated diff Status: Abnormal Collection Time: 11/06/23 4:57 AM Result Value Ref Range WBC 3.6 (L) 4.2 - 9.1 K/??L RBC 4.29 (L) 4.63 - 6.08 M/??L Hemoglobin 10.5 (L) 13.7 - 17.5 GM/DL Hematocrit 35.2 (L) 40.1 - 51.0 % MCV 82 79 - 92 fL MCH 24.5 (L) 25.7 - 32.2 pg MCHC 29.8 (L) 32.3 - 36.5 GM/DL RDW 16.7 (H) 11.6 - 14.4 % Platelets 199 140 - 375 K/CU MM MPV 11.3 9.4 - 12.4 fL NRBC Absolute <0.01 0 - 0.012 K/ul Manual Differential Status: Abnormal Collection Time: 11/06/23 4:57 AM Result Value Ref Range Total Counted 100 % Neutros (manual) 62 50 - 65 % % Lymphs (manual) 29 24 - 44 % % Monos (manual) 6 (H) 4 - 5 % % Eos (manual) 3 0 - 3 % RBC Morphology abnormal (A) Normal Platelet Estimate Adequate Adequate Anisocytosis 1+ Ovalocytes 1+ ANC# 2.23 K/??L Basic Metabolic Panel Status: Abnormal Collection Time: 11/06/23 4:58 AM Result Value Ref Range Sodium 136 136 - 146 meq/L Potassium 4.8 3.5 - 5.1 meq/L Chloride 102 102 - 112 meq/L CO2 31 21 - 32 meq/L Anion Gap 8 (L) 9 - 20 BUN 61 (H) 7 - 22 mg/dL Creatinine 3.43 (H) 0.70 - 1.30 mg/dL BUN/Creatinine 18 8 - 20 Glucose 135 (H) 74 - 106 mg/dL Calcium 8.9 8.4 - 10.1 mg/dL Osmolality Calc 291.2 eGFR (mL/min/1.73m2) 20 (L) >=60 mL/min/1.73m2 Magnesium Status: Normal Collection Time: 11/06/23 4:58 AM Result Value Ref Range Magnesium 2.1 1.5 - 2.4 mg/dL Glucose, Nova Meter Status: Abnormal Collection Time: 11/06/23 7:13 AM Result Value Ref Range POC-GLUCOSE 121 (H) 70 - 110 mg/dL Loom Operator Apprentice [id number] Glucose, Nova Meter Status: Abnormal Collection Time: 11/06/23 11:03 AM Result Value Ref Range POC-GLUCOSE 166 (H) 70 - 110 mg/dL Loom Operator Apprentice [id number] Radiology: XR chest AP portable Final Result Mild improvement in the pulmonary vascular congestion. Images reviewed, interpreted, and dictated by Dr. Enzo Alonso. Transcribed by Kayla Edmund, PA-C. XR chest AP portable Final Result Worsening interstitial opacities which may be secondary to edema. Images reviewed, interpreted, and dictated by Dr. Stephon Cedillo. Transcribed by Isma Brian PA-C XR chest AP portable Final Result Improving aeration. Images reviewed, interpreted, and dictated by Dr. Frandy Stauffer. Transcribed by Brad Hernandez PA-C. XR chest AP portable Final Result Vascular congestion and interstitial opacity likely related to mild edema. Images reviewed, interpreted, and dictated by Dr. Stephon Cedillo. Transcribed by Brad Hernandez PA-C. XR chest AP portable Final Result Mild cardiomegaly with pulmonary vascular congestion. Images reviewed, interpreted, and dictated by Dr. Stephon Cedillo. Transcribed by Lia Hawk PA-C. ECHO COMPLETE (DOPPLER / COLOR) W OR WO CONTRAST Final Result XR chest AP portable Final Result 1. Cardiomegaly and mild interstitial opacity favored to be chronic. Follow-up better inflated PA and lateral chest radiograph may be of value. Images reviewed, interpreted, and dictated by Stephon Cedillo MD Medications: Scheduled Meds: ??? ammonium lactate topical BID Given at 11/06/23 0902 ??? aspirin 81 mg oral Daily 81 mg at 11/06/23 08 ??? atorvastatin 80 mg oral Every Night 80 mg at 11/05/238 ??? bumetanide 2 mg oral Daily 2 mg at 11/05/23 0900 ??? cephalexin 250 mg oral Q8H 250 mg at 11/06/23 1251 ??? doxycycline 100 mg oral Q12H 100 mg at 11/06/23 0858 ??? [Held by provider] empagliflozin 10 mg oral Daily 10 mg at 10/30/23 0831 ??? heparin 5,000 Units subcutaneous Q12H 5,000 Units at 11/05/23 2149 ??? hydrALAZINE 10 mg oral Q8H 10 mg at 11/06/23 1251 ??? hydrocortisone topical BID Given at 11/06/23 0901 ??? insulin glargine 10 Units subcutaneous Every Night 10 Units at 11/04/23 2051 ??? insulin lispro 0-18 Units subcutaneous 4x Daily AC 6 Units at 11/05/23 1720 ??? isosorbide dinitrate 10 mg oral TID 10 mg at 11/06/23 0858 ??? loratadine 10 mg oral Daily 10 mg at 11/06/23 0858 ??? melatonin 3 mg oral Every Night 3 mg at 11/05/238 ??? metoprolol succinate 75 mg oral Daily 75 mg at 11/06/23 0858 ??? nicotine 1 patch transdermal Daily ??? [Held by provider] sacubitriL-valsartan 1 tablet oral BID 1 tablet at 10/30/23 0831 Continuous Infusions: PRN Meds: ??? acetaminophen ??? dextrose ??? glucagon ??? glucose ??? hydrOXYzine ??? ipratropium-albuteroL ??? ondansetron Or ??? ondansetron PF ??? oxyCODONE ??? oxyCODONE Assessment and Plan Primary Diagnosis: Acute decompensated HF Secondary Diagnosis: Principal Problem: Acute on chronic diastolic CHF (congestive heart failure) (HCC) #Acute on chronic systolic decompensated HF: #Anasarca - NYHA III, stage D - EF 20-25% at OSH-->15% at our facility - Continue Toprol 75 mg daily - Continue isordil 10 mg TID - Continue hydralazine 10 mg daily - Lifevest delivered and at bedside - EP and cardiology following - GDMT limited in setting of renal insufficiency - Continue p.o. Bumex 1 mg twice daily - Labs reviewed: Sodium 136, serum creatinine 3.43, magnesium 2.1 #KOKO on CKD: - External records from [facility] ; baseline appears to be 2.6-3.0 from earlier 2023 in may - Serum creatinine slightly fluctuating day by day #RLE cellulitis: - Baseline chronic venous stasis with superimposed cellulitis - Cultures from OSH with klebsiella and enterobacter - Continue p.o. Doxy and Keflex end date 11/07 #Aortic stenosis: EF 15% on echo with low flow low gradient #Tobacco use disorder: - Continue NRT #LECHUGA Cirrhosis: - Outpatient follow up #Diabetes: - Continue lantus 10 units qhs - Continue SSI Diet: Orders Placed This Encounter Procedures ??? Consistent Carbohydrate Additional Modifiers: Heart Healthy, 2 gram Sodium DVT ppx: SQH Code Status: Full Code Discharge Planning: Barriers to discharge: awaiting IPR, medically ready Expected (tentative) discharge in 2-3 days Expected discharge disposition (home, SNF/Rehab, etc): [facility] Additional discharge needs or delays: TBD Signed: DO [facility] * Everardo Trinidad MD - 11/06/2023 11:21 AM EDT Store Operations Manager: Chief Complaint: No chief complaint on file. Subjective: NAD Social History: Social History Socioeconomic History ??? Marital status: Unknown Spouse name: Not on file ??? Number of children: Not on file ??? Years of education: Not on file ??? Highest education level: Not on file Occupational History ??? Not on file Tobacco Use ??? Smoking status: Every Day Types: Cigarettes ??? Smokeless tobacco: Never Substance and Sexual Activity ??? Alcohol use: Not Currently ??? Drug use: Never ??? Sexual activity: Not on file Other Topics Concern ??? Not on file Social History Narrative ??? Not on file Social Determinants of Health Financial Resource Strain: High Risk (10/29/2023) Financial Resource Strain ??? : 1 Food Insecurity: Food Insecurity Present (10/29/2023) Food Insecurity ??? : 1 ??? : 0 Transportation Needs: Unmet Transportation Needs (10/29/2023) Transportation Needs ??? : 1 Physical Activity: Inactive (10/29/2023) Physical Activity ??? : 0 Stress: No Stress Concern Present (10/29/2023) Stress ??? : 1 Social Connections: Low Risk (10/29/2023) Family and Community Support ??? : 0 ??? : 0 Intimate Partner Violence: Not on file Housing Stability: Low Risk (10/29/2023) Housing Stability ??? : 0 ??? : 0 Living Arrangements: Alone Type of Residence: Private residence Family History: No family history on file. Medications: No current facility-administered medications on file prior to encounter. Current Outpatient Medications on File Prior to Encounter Medication Sig Dispense Refill ??? albuterol HFA (VENTOLIN HFA) 90 mcg/actuation inhaler Inhale 1 puff by mouth via inhaler every 6 (six) hours as needed for wheezing. ??? aspirin 81 MG EC tablet Take 1 tablet (81 mg total) by mouth daily. ??? atorvastatin (LIPITOR) 80 MG tablet Take 1 tablet (80 mg total) by mouth nightly. ??? carvediloL (COREG) 12.5 MG tablet Take 1 tablet (12.5 mg total) by mouth 2 (two) times daily with breakfast and dinner. ??? furosemide (LASIX) 40 MG tablet Take 1 tablet (40 mg total) by mouth daily as needed (Edema). ??? gabapentin (NEURONTIN) 600 MG tablet Take 1 tablet (600 mg total) by mouth 3 (three) times daily. ??? hydrALAZINE (APRESOLINE) 50 MG tablet Take 1 tablet (50 mg total) by mouth 3 (three) times daily Look-alike/Sound-alike medication. ??? insulin detemir U-100 (LEVEMIR) 100 unit/mL (3 mL) InPn injection Inject 0.13 mLs (13 Units total) subcutaneously nightly. ??? isosorbide dinitrate (ISORDIL) 40 MG tablet Take 1 tablet (40 mg total) by mouth 3 (three) times daily. Review of Systems: Pertinent items are noted in HPI. Physical Exam: Physical Exam Constitutional: General: He is not in acute distress. Appearance: Normal appearance. He is not toxic-appearing or diaphoretic. HENT: Head: Normocephalic and atraumatic. Nose: Nose normal. Mouth/Throat: Mouth: Mucous membranes are moist. Pharynx: Oropharynx is clear. Eyes: Extraocular Movements: Extraocular movements intact. Conjunctiva/sclera: Conjunctivae normal. Pupils: Pupils are equal, round, and reactive to light. Cardiovascular: Rate and Rhythm: Normal rate and regular rhythm. Heart sounds: Normal heart sounds. No murmur heard. No gallop. Pulmonary: Effort: Pulmonary effort is normal. No respiratory distress. Breath sounds: Normal breath sounds. Abdominal: General: Abdomen is flat. Bowel sounds are normal. There is no distension. Palpations: Abdomen is soft. Tenderness: There is no abdominal tenderness. There is no guarding. Musculoskeletal: General: Deformity present. No swelling. Normal range of motion. Cervical back: Normal range of motion and neck supple. Left lower leg: No edema. Comments: Left BKA Skin: General: Skin is warm and dry. Coloration: Skin is not pale. Findings: No erythema. Neurological: General: No focal deficit present. Mental Status: He is alert and oriented to person, place, and time. Cranial Nerves: No cranial nerve deficit. Motor: No weakness. Psychiatric: Mood and Affect: Mood normal. Behavior: Behavior normal. Judgment: Judgment normal. Vitals: Hemodynamic parameters reviewed for last 24 hours. Blood pressure (!) 159/106, pulse 70, temperature 98 ??F (36.7 ??C), temperature source Oral, resp.rate 18, height 1.854 m (6' 1 ), weight 82.8 kg (182 lb 8 oz), SpO2 96 %. Assessment and Plan: ?? *Acute on chronic systolic/diastolic CHF / NYHA class III stage D For volume overload with anasarca on admission LVEF 20 to 25% per OSH echo, 15% reported here as per ECHO 10/29/2023 *Scrotal edema *ASCVD History of prior PCI History of non-STEMI *VHD With aortic regurgitation and mitral regurgitation (echo pending) *Hypertension *Hyperlipidemia *Diabetes mellitus type 2 Insulin-dependent *Peripheral vascular disease History of left [id number] amputation (uses a prosthesis) *LECHUGA cirrhosis *COPD With acute on chronic hypoxemic respiratory failure *Noncompliance *KOKO on CKD stage IV *Cellulitis of the right calf Skin culture obtained on 730 showed Klebsiella and Enterobacter species *Low flow low gradient ?? PLAN: 11/06/2023 Labs and telemetry reviewed. No new events overnight. Some PAC and PVC on the monitor. Keep potassium above 4 and magnesium above 2. 11/05/2023 Labs and telemetry reviewed. Creatinine improving slightly at 3.22. EKG shows sinus rhythm with heart rate in the 60s. 11/04/2023 Labs and telemetry reviewed, creatinine 3.6, continue BB, imdur/hydralazine, additional GDMT can not be introduced due to CKD, he is on Cephalexin and Doxycycline for cellulitis. 11/03/2023 Labs and telemetry reviewed. Life vest provided to patient. Continue diuresis and management of CHFas percardiology team. 11/02/2023 Labs and telemetry reviewed, life vest ordered. Continue Diuresis. Management of cellulitis as per primary team. 11/01/2023 Labs and telemetry reviewed, management of cellulitis as per primary team, will order LifeVest and schedule subcutaneous ICD implant as an outpatient Case discussed with who is the referring physician. 10/31/2023 Labs and tele reviewed, NSVT last night, continue diuresis with monitoring of renal function. Discussed with , patient is not sure what medications he takes, he needs to be on GDMT (BB at least given his renal failure) and needs to show compliance, Also given cellulitis it would be most appropriate at this point to prescribe life vest and have him follow up as outpatient. 10/30/2023 Patient has been placed on GDMT, limitations of increasing and adding guideline directed medical therapy is his renal failure, will increase Toprol-XL dose. Echocardiogram here showed ejection fraction of 15% low-flow low gradient aortic stenosis, patient will require an ICD for primary prevention of sudden cardiac however given recent skin cultures that showed Klebsiella and Enterobacter species, will hold off until we are sure there is no ongoing infection, I examined his right leg which showed no open wounds. I will consider him for subcutaneous ICD once cellulitis/infection is addressed. Continue diuresis and management of congestive heart failure as per cardiology team, nephrology was consulted. 10/29/2023 Telemetry reviewed. Will obtain twelve-lead EKG. We will obtain complete echocardiogram. Agree with initiation of GDMT. Agree with diuresis. We will consult cardiology for assistance with CHF management. We will consult nephrology for assistance with KOKO on CKD. Monitor and replace electrolytes as needed to keep potassium level greater than 4.0 and magnesium greater than 2.0 at all times. BMP and magnesium level pending. Will check TSH and free T4. Discussed wit . Further recommendations pending testing results, clinical course, and response to therapy. Signed: Everardo Trinidad MD 11/06/2023 8:27 PM * Tamara Winters RN - 11/05/2023 2:30 PM EDT Discharge Plan Progress Note [facility] unable to accommodate Life Vest patient. [facility] will re-evaluate to see if he is good candidate for them. Will need transportation. CM to follow. Tamara Winters RN * Everardo Trinidad MD - 11/05/2023 1:04 PM EDT Store Operations Manager: Chief Complaint: No chief complaint on file. Subjective: NAD Social History: Social History Socioeconomic History ??? Marital status: Unknown Spouse name: Not on file ??? Number of children: Not on file ??? Years of education: Not on file ??? Highest education level: Not on file Occupational History ??? Not on file Tobacco Use ??? Smoking status: Every Day Types: Cigarettes ??? Smokeless tobacco: Never Substance and Sexual Activity ??? Alcohol use: Not Currently ??? Drug use: Never ??? Sexual activity: Not on file Other Topics Concern ??? Not on file Social History Narrative ??? Not on file Social Determinants of Health Financial Resource Strain: High Risk (10/29/2023) Financial Resource Strain ??? : 1 Food Insecurity: Food Insecurity Present (10/29/2023) Food Insecurity ??? : 1 ??? : 0 Transportation Needs: Unmet Transportation Needs (10/29/2023) Transportation Needs ??? : 1 Physical Activity: Inactive (10/29/2023) Physical Activity ??? : 0 Stress: No Stress Concern Present (10/29/2023) Stress ??? : 1 Social Connections: Low Risk (10/29/2023) Family and Community Support ??? : 0 ??? : 0 Intimate Partner Violence: Not on file Housing Stability: Low Risk (10/29/2023) Housing Stability ??? : 0 ??? : 0 Living Arrangements: Alone Type of Residence: Private residence Family History: No family history on file. Medications: No current facility-administered medications on file prior to encounter. Current Outpatient Medications on File Prior to Encounter Medication Sig Dispense Refill ??? albuterol HFA (VENTOLIN HFA) 90 mcg/actuation inhaler Inhale 1 puff by mouth via inhaler every 6 (six) hours as needed for wheezing. ??? aspirin 81 MG EC tablet Take 1 tablet (81 mg total) by mouth daily. ??? atorvastatin (LIPITOR) 80 MG tablet Take 1 tablet (80 mg total) by mouth nightly. ??? carvediloL (COREG) 12.5 MG tablet Take 1 tablet (12.5 mg total) by mouth 2 (two) times daily with breakfast and dinner. ??? furosemide (LASIX) 40 MG tablet Take 1 tablet (40 mg total) by mouth daily as needed (Edema). ??? gabapentin (NEURONTIN) 600 MG tablet Take 1 tablet (600 mg total) by mouth 3 (three) times daily. ??? hydrALAZINE (APRESOLINE) 50 MG tablet Take 1 tablet (50 mg total) by mouth 3 (three) times daily Look-alike/Sound-alike medication. ??? insulin detemir U-100 (LEVEMIR) 100 unit/mL (3 mL) InPn injection Inject 0.13 mLs (13 Units total) subcutaneously nightly. ??? isosorbide dinitrate (ISORDIL) 40 MG tablet Take 1 tablet (40 mg total) by mouth 3 (three) times daily. Review of Systems: Pertinent items are noted in HPI. Physical Exam: Physical Exam Constitutional: General: He is not in acute distress. Appearance: Normal appearance. He is not toxic-appearing or diaphoretic. HENT: Head: Normocephalic and atraumatic. Nose: Nose normal. Mouth/Throat: Mouth: Mucous membranes are moist. Pharynx: Oropharynx is clear. Eyes: Extraocular Movements: Extraocular movements intact. Conjunctiva/sclera: Conjunctivae normal. Pupils: Pupils are equal, round, and reactive to light. Cardiovascular: Rate and Rhythm: Normal rate and regular rhythm. Heart sounds: Normal heart sounds. No murmur heard. No gallop. Pulmonary: Effort: Pulmonary effort is normal. No respiratory distress. Breath sounds: Normal breath sounds. Abdominal: General: Abdomen is flat. Bowel sounds are normal. There is no distension. Palpations: Abdomen is soft. Tenderness: There is no abdominal tenderness. There is no guarding. Musculoskeletal: General: Deformity present. No swelling. Normal range of motion. Cervical back: Normal range of motion and neck supple. Left lower leg: No edema. Comments: Left BKA Skin: General: Skin is warm and dry. Coloration: Skin is not pale. Findings: No erythema. Neurological: General: No focal deficit present. Mental Status: He is alert and oriented to person, place, and time. Cranial Nerves: No cranial nerve deficit. Motor: No weakness. Psychiatric: Mood and Affect: Mood normal. Behavior: Behavior normal. Judgment: Judgment normal. Vitals: Hemodynamic parameters reviewed for last 24 hours. Blood pressure 129/87, pulse 73, temperature 98.2 ??F (36.8 ??C), temperature source Oral, resp. rate 18, height 1.854 m (6' 1 ), weight 82.8 kg (182 lb 8 oz), SpO2 100 %. Assessment and Plan: ?? *Acute on chronic systolic/diastolic CHF / NYHA class III stage D For volume overload with anasarca on admission LVEF 20 to 25% per OSH echo, 15% reported here as per ECHO 10/29/2023 *Scrotal edema *ASCVD History of prior PCI History of non-STEMI *VHD With aortic regurgitation and mitral regurgitation (echo pending) *Hypertension *Hyperlipidemia *Diabetes mellitus type 2 Insulin-dependent *Peripheral vascular disease History of left [id number] amputation (uses a prosthesis) *LECHUGA cirrhosis *COPD With acute on chronic hypoxemic respiratory failure *Noncompliance *KOKO on CKD stage IV *Cellulitis of the right calf Skin culture obtained on 730 showed Klebsiella and Enterobacter species *Low flow low gradient ?? PLAN: 11/05/2023 Labs and telemetry reviewed. Creatinine improving slightly at 3.22. EKG shows sinus rhythm with heart rate in the 60s. 11/04/2023 Labs and telemetry reviewed, creatinine 3.6, continue BB, imdur/hydralazine, additional GDMT can not be introduced due to CKD, he is on Cephalexin and Doxycycline for cellulitis. 11/03/2023 Labs and telemetry reviewed. Life vest provided to patient. Continue diuresis and management of CHFas percardiology team. 11/02/2023 Labs and telemetry reviewed, life vest ordered. Continue Diuresis. Management of cellulitis as per primary team. 11/01/2023 Labs and telemetry reviewed, management of cellulitis as per primary team, will order LifeVest and schedule subcutaneous ICD implant as an outpatient Case discussed with who is the referring physician. 10/31/2023 Labs and tele reviewed, NSVT last night, continue diuresis with monitoring of renal function. Discussed with , patient is not sure what medications he takes, he needs to be on GDMT (BB at least given his renal failure) and needs to show compliance, Also given cellulitis it would be most appropriate at this point to prescribe life vest and have him follow up as outpatient. 10/30/2023 Patient has been placed on GDMT, limitations of increasing and adding guideline directed medical therapy is his renal failure, will increase Toprol-XL dose. Echocardiogram here showed ejection fraction of 15% low-flow low gradient aortic stenosis, patient will require an ICD for primary prevention of sudden cardiac however given recent skin cultures that showed Klebsiella and Enterobacter species, will hold off until we are sure there is no ongoing infection, I examined his right leg which showed no open wounds. I will consider him for subcutaneous ICD once cellulitis/infection is addressed. Continue diuresis and management of congestive heart failure as per cardiology team, nephrology was consulted. 10/29/2023 Telemetry reviewed. Will obtain twelve-lead EKG. We will obtain complete echocardiogram. Agree with initiation of GDMT. Agree with diuresis. We will consult cardiology for assistance with CHF management. We will consult nephrology for assistance with KOKO on CKD. Monitor and replace electrolytes as needed to keep potassium level greater than 4.0 and magnesium greater than 2.0 at all times. BMP and magnesium level pending. Will check TSH and free T4. Discussed wit . Further recommendations pending testing results, clinical course, and response to therapy. Signed: Everardo Trinidad MD 11/05/2023 8:27 PM * Bing Sebastian, - 11/05/2023 12:50 PM EDT [facility] Progress Note Patient: Robert Hurley Jr. Subjective Chief Complaint / Reason for Follow-Up Robert Hurley Jr. is a 58 y.o. male on hospital day 7. The principal reason for today's follow up visit is Acute on chronic diastolic CHF (congestive heart failure) (HCC). Interval History Patient seen and evaluated this morning No acute events overnight Hemodynamics and labs for past 24 hours reviewed Review of Systems weakness and malaise Objective Vitals: Temp: [97.8 ??F (36.6 ??C)-98.2 ??F (36.8 ??C)] 98.2 ??F (36.8 ??C) Pulse: [65-73] 73 Resp: [18] 18 BP: (128-140)/(84-88) 129/87 Intake/Output: Intake/Output Summary (Last 24 hours) at 11/05/2023 1250 Last data filed at 11/05/2023 0100 Gross per 24 hour Intake 200 ml Output 200 ml Net 0 ml Physical exam: Gen: Chronically ill appearing disheveled male resting comfortably, no acute distress HEENT: PERRL, EOMI CVS: RRR, no murmurs, no edema Lung: Bibasilar crackles, no increased WOB, nasal cannula in place Abd: Soft non-distended Skin: Chronic venous stasis in RLE, extensive, onychomycosis RLE MSK: Left AKA Labs: Recent Labs Lab(s) Units 11/05/23 1110 11/05/23 0730 11/05/23 0327 11/04/23 1619 11/04/23 1448 11/04/23 0840 11/04/23 0455 11/03/23 0810 11/03/23 0538 11/01/23 0744 11/01/23 0529 10/30/23 0736 10/30/23 0439 WBC K/??L -- -- 3.8* -- 4.0* -- -- -- -- -- 4.1* < > 4.5 HGB GM/DL -- -- 10.4* -- 10.5* -- -- -- -- -- 10.3* < > 10.5* HCT % -- -- 34.8* -- 34.8* -- -- -- -- -- 34.0* < > 35.6* PLT K/CU MM -- -- 194 -- 196 -- -- -- -- -- 200 < > 231 MG mg/dL -- -- 2.2 -- 2.2 -- 2.3 -- 2.3 < > 2.2 < > 2.4 NA meq/L -- -- 138 -- 137 -- -- -- 137 < > 138 < > 138 K meq/L -- -- 4.3 -- 4.8 -- -- -- 4.1 < > 4.4 < > 4.8 CL meq/L -- -- 102 -- 100* -- -- -- 99* < > 100* < > 105 CO2 meq/L -- -- 32 -- 33* -- -- -- 32 < > 31 < > 27 BUN mg/dL -- -- 58* -- 56* -- -- -- 57* < > 52* < > 43* CREATININE mg/dL -- -- 3.25* -- 3.46* -- -- -- 3.60* < > 3.54* < > 3.35* EGFR mL/min/1.73m2 -- -- 21* -- 20* -- -- -- 19* < > 19* < > 21* GLUCOSE mg/dL 139* 98 103 < > 108* < > -- < > 119* < > 118* < > 88 CALCIUM mg/dL -- -- 9.0 -- 9.1 -- -- -- 8.9 < > 8.8 < > 9.1 ALKPHOS U/L -- -- -- -- -- -- -- -- -- -- -- -- 171* BILITOT mg/dL -- -- -- -- -- -- -- -- -- -- -- -- 1.1 PROT gm/dL -- -- -- -- -- -- -- -- -- -- -- -- 6.5 ALT U/L -- -- -- -- -- -- -- -- -- -- -- -- 15* AST U/L -- -- -- -- -- -- -- -- -- -- -- -- 34 < > = values in this interval not displayed. Results for orders placed or performed during the hospital encounter of 10/29/23 (from the past 24 hour(s)) Basic Metabolic Panel Status: Abnormal Collection Time: 11/04/23 2:48 PM Result Value Ref Range Sodium 137 136 - 146 meq/L Potassium 4.8 3.5 - 5.1 meq/L Chloride 100 (L) 102 - 112 meq/L CO2 33 (H) 21 - 32 meq/L Anion Gap 9 9 - 20 BUN 56 (H) 7 - 22 mg/dL Creatinine 3.46 (H) 0.70 - 1.30 mg/dL BUN/Creatinine 16 8 - 20 Glucose 108 (H) 74 - 106 mg/dL Calcium 9.1 8.4 - 10.1 mg/dL Osmolality Calc 289.8 eGFR (mL/min/1.73m2) 20 (L) >=60 mL/min/1.73m2 CBC with automated diff Status: Abnormal Collection Time: 11/04/23 2:48 PM Result Value Ref Range WBC 4.0 (L) 4.2 - 9.1 K/??L RBC 4.26 (L) 4.63 - 6.08 M/??L Hemoglobin 10.5 (L) 13.7 - 17.5 GM/DL Hematocrit 34.8 (L) 40.1 - 51.0 % MCV 82 79 - 92 fL MCH 24.6 (L) 25.7 - 32.2 pg MCHC 30.2 (L) 32.3 - 36.5 GM/DL RDW 16.6 (H) 11.6 - 14.4 % Platelets 196 140 - 375 K/CU MM MPV 10.8 9.4 - 12.4 fL % Neutros 62 34 - 68 % % Lymphs 26 22 - 53 % % Monos 9 5 - 12 % % Eos 3 1 - 7 % % Baso 1 0 - 1 % NRBC Absolute <0.01 0 - 0.012 K/ul # Neutros 2.50 1.78 - 5.38 K/??L # Lymphs 1.03 (L) 1.32 - 3.57 K/??L # Monos 0.37 0.30 - 0.82 K/??L # Eos 0.10 0.04 - 0.54 K/??L # Baso <0.03 0.01 - 0.08 K/??L Immature Granulocytes-Relative 0.20 0.01 - 0.43 % # IG <0.03 0.00 - 0.03 K/uL Magnesium Status: Normal Collection Time: 11/04/23 2:48 PM Result Value Ref Range Magnesium 2.2 1.5 - 2.4 mg/dL Glucose, Nova Meter Status: Abnormal Collection Time: 11/04/23 4:19 PM Result Value Ref Range POC-GLUCOSE 119 (H) 70 - 110 mg/dL Loom Operator Apprentice [id number] Glucose, Nova Meter Status: Abnormal Collection Time: 11/04/23 8:25 PM Result Value Ref Range POC-GLUCOSE 159 (H) 70 - 110 mg/dL Loom Operator Apprentice [id number] Basic Metabolic Panel Status: Abnormal Collection Time: 11/05/23 3:27 AM Result Value Ref Range Sodium 138 136 - 146 meq/L Potassium 4.3 3.5 - 5.1 meq/L Chloride 102 102 - 112 meq/L CO2 32 21 - 32 meq/L Anion Gap 8 (L) 9 - 20 BUN 58 (H) 7 - 22 mg/dL Creatinine 3.25 (H) 0.70 - 1.30 mg/dL BUN/Creatinine 18 8 - 20 Glucose 103 74 - 106 mg/dL Calcium 9.0 8.4 - 10.1 mg/dL Osmolality Calc 292.1 eGFR (mL/min/1.73m2) 21 (L) >=60 mL/min/1.73m2 CBC with automated diff Status: Abnormal Collection Time: 11/05/23 3:27 AM Result Value Ref Range WBC 3.8 (L) 4.2 - 9.1 K/??L RBC 4.28 (L) 4.63 - 6.08 M/??L Hemoglobin 10.4 (L) 13.7 - 17.5 GM/DL Hematocrit 34.8 (L) 40.1 - 51.0 % MCV 81 79 - 92 fL MCH 24.3 (L) 25.7 - 32.2 pg MCHC 29.9 (L) 32.3 - 36.5 GM/DL RDW 16.7 (H) 11.6 - 14.4 % Platelets 194 140 - 375 K/CU MM MPV 11.4 9.4 - 12.4 fL NRBC Absolute <0.01 0 - 0.012 K/ul Magnesium Status: Normal Collection Time: 11/05/23 3:27 AM Result Value Ref Range Magnesium 2.2 1.5 - 2.4 mg/dL Manual Differential Status: Abnormal Collection Time: 11/05/23 3:27 AM Result Value Ref Range Total Counted 100 % Neutros (manual) 60 50 - 65 % % Lymphs (manual) 32 24 - 44 % % Monos (manual) 3 (L) 4 - 5 % % Eos (manual) 5 (H) 0 - 3 % Reactive Lymphocytes Present RBC Morphology Normal Normal Platelet Estimate Adequate Adequate Hypochromia 1+ ANC# 2.28 K/??L Glucose, Nova Meter Status: None Collection Time: 11/05/23 7:30 AM Result Value Ref Range POC-GLUCOSE 98 70 - 110 mg/dL Loom Operator Apprentice [id number] Glucose, Nova Meter Status: Abnormal Collection Time: 11/05/23 11:10 AM Result Value Ref Range POC-GLUCOSE 139 (H) 70 - 110 mg/dL Loom Operator Apprentice [id number] Radiology: XR chest AP portable Final Result Worsening interstitial opacities which may be secondary to edema. Images reviewed, interpreted, and dictated by Dr. Stephon Cedillo. Transcribed by Isma Brian PA-C XR chest AP portable Final Result Improving aeration. Images reviewed, interpreted, and dictated by Dr. Frandy Stauffer. Transcribed by Brad Hernandez PA-C. XR chest AP portable Final Result Vascular congestion and interstitial opacity likely related to mild edema. Images reviewed, interpreted, and dictated by Dr. Stephon Cedillo. Transcribed by Brad Hernandez PA-C. XR chest AP portable Final Result Mild cardiomegaly with pulmonary vascular congestion. Images reviewed, interpreted, and dictated by Dr. Stephon Cedillo. Transcribed by Lia Hawk PA-C. ECHO COMPLETE (DOPPLER / COLOR) W OR WO CONTRAST Final Result XR chest AP portable Final Result 1. Cardiomegaly and mild interstitial opacity favored to be chronic. Follow-up better inflated PA and lateral chest radiograph may be of value. Images reviewed, interpreted, and dictated by Stephon Cedillo MD Medications: Scheduled Meds: ??? ammonium lactate topical BID Given at 11/05/23901 ??? aspirin 81 mg oral Daily 81 mg at 11/05/23900 ??? atorvastatin 80 mg oral Every Night 80 mg at 11/04/232049 ??? bumetanide 2 mg oral Daily 2 mg at 11/05/23 0900 ??? cephalexin 250 mg oral Q8H 250 mg at 11/05/23440 ??? doxycycline 100 mg oral Q12H 100 mg at 11/05/23 0901 ??? [Held by provider] empagliflozin 10 mg oral Daily 10 mg at 10/30/23 08 ??? heparin 5,000 Units subcutaneous Q12H 5,000 Units at 11/05/23 0900 ??? hydrALAZINE 10 mg oral Q8H 10 mg at 11/05/23 044 ??? hydrocortisone topical BID Given at 11/04/232051 ??? insulin glargine 10 Units subcutaneous Every Night 10 Units at 11/04/232050 ??? insulin lispro 0-18 Units subcutaneous 4x Daily AC 3 Units at 11/04/232051 ??? isosorbide dinitrate 10 mg oral TID 10 mg at 11/05/23899 ??? loratadine 10 mg oral Daily 10 mg at 11/05/23899 ??? melatonin 3 mg oral Every Night 3 mg at 11/04/232050 ??? metoprolol succinate 75 mg oral Daily 75 mg at 11/05/23 0859 ??? nicotine 1 patch transdermal Daily ??? [Held by provider] sacubitriL-valsartan 1 tablet oral BID 1 tablet at 10/30/23830 Continuous Infusions: PRN Meds: ??? acetaminophen ??? dextrose ??? glucagon ??? glucose ??? hydrOXYzine ??? ipratropium-albuteroL ??? ondansetron Or ??? ondansetron PF ??? oxyCODONE ??? oxyCODONE Assessment and Plan Primary Diagnosis: Acute decompensated HF Secondary Diagnosis: Principal Problem: Acute on chronic diastolic CHF (congestive heart failure) (HCC) #Acute on chronic systolic decompensated HF: #Anasarca - NYHA III, stage D - EF 20-25% at OSH-->15% at our facility - Continue Toprol 75 mg daily - Continue isordil 10 mg TID - Continue hydralazine 10 mg daily - Lifevest delivered and at bedside - EP and cardiology following - GDMT limited in setting of renal insufficiency - Continue p.o. Bumex 1 mg twice daily -Labs reviewed: Serum creatinine 3.25 slightly improved, BUN 58, magnesium 2.2, potassium 4.3 -Chest x-ray independently reviewed dated 11/04: Slight increased interstitial markings may be consistent with developing pulmonary edema, will give one-time dose of IV Bumex 2 mg this evening -Continue monitoring carefully for drug toxicities and adverse side effects and electrolytes with IV diuretic therapy and renal insufficiency - Careful I&O monitoring #KOKO on CKD: - External records from [facility] ; baseline appears to be 2.6-3.0 from earlier 2023 in may - Serum creatinine improved #RLE cellulitis: - Baseline chronic venous stasis with superimposed cellulitis - Cultures from OSH with klebsiella and enterobacter - Continue p.o. Doxy and Keflex end date 11/07 #Aortic stenosis: EF 15% on echo with low flow low gradient #Tobacco use disorder: - Continue NRT #LECHUGA Cirrhosis: - Outpatient follow up #Diabetes: - Continue lantus 10 units qhs - Continue SSI Diet: Orders Placed This Encounter Procedures ??? Consistent Carbohydrate Additional Modifiers: Heart Healthy, 2 gram Sodium DVT ppx: SQH Code Status: Full Code Discharge Planning: Barriers to discharge: awaiting IPR Expected (tentative) discharge in 2-3 days Expected discharge disposition (home, SNF/Rehab, etc): [facility] Additional discharge needs or delays: TBD Signed: Bing Sebastian DO [facility] * Monika Pennington MD - 11/05/2023 11:57 AM EDT Subjective History of Present Illness: Patient is very poor historian Robert Hurley Jr. is a 58 y.o. male with history of CKD 4 with base creatinine close to ~3, DM,HTN,CHF, left AKA ,difficulty accessing health care resources and keeping follow ups,noncompliance??who presented to [facility] on 10/25 for evaluation of several days of worsening shortness ofbreath and scrotal edema. [facility] as above ,He had echocardiogram done showing EF of 20-25% and was transferred to [facility] for EP evaluation of AICD. ? Yesterday Labs at OSH showed wbc 3.5, hgb 10.5, plt 201, sodium 138, potassium 5.0, creatinine 3.3,mag 2.0. Nephrology was consulted for Renal failure and Volume management 11/04: resting on bed , no new issues Review of Systems Constitutional: Negative. HENT: Negative. Eyes: Negative. Respiratory: Positive for shortness of breath. Cardiovascular: Negative. Gastrointestinal: Negative. Genitourinary: Negative. Skin: Negative. Neurological: Positive for weakness. Psychiatric/Behavioral: Negative. Objective Last Recorded Vitals Blood pressure (!) 159/106, pulse 70, temperature 98 ??F (36.7 ??C), temperature source Oral, resp.rate 18, height 1.854 m (6' 1 ), weight 82.8 kg (182 lb 8 oz), SpO2 96 %. Physical Exam Constitutional: Appearance: Normal appearance. HENT: Head: Normocephalic and atraumatic. Nose: Nose normal. Mouth/Throat: Mouth: Mucous membranes are moist. Eyes: Extraocular Movements: Extraocular movements intact. Pupils: Pupils are equal, round, and reactive to light. Cardiovascular: Rate and Rhythm: Normal rate and regular rhythm. Heart sounds: Normal heart sounds. Pulmonary: Breath sounds: Normal breath sounds. Abdominal: General: Abdomen is flat. Palpations: Abdomen is soft. Musculoskeletal: Cervical back: Normal range of motion and neck supple. Skin: General: Skin is warm and dry. Neurological: Mental Status: He is alert and oriented to person, place, and time. Psychiatric: Mood and Affect: Mood normal. Behavior: Behavior normal. Labs: Results for orders placed or performed during the hospital encounter of 10/29/23 (from the past 24 hour(s)) Glucose, Nova Meter Status: Abnormal Collection Time: 11/05/23 5:14 PM Result Value Ref Range POC-GLUCOSE 185 (H) 70 - 110 mg/dL Loom Operator Apprentice [id number] Glucose, Nova Meter Status: None Collection Time: 11/05/23 7:28 PM Result Value Ref Range POC-GLUCOSE 95 70 - 110 mg/dL Loom Operator Apprentice [id number] CBC with automated diff Status: Abnormal Collection Time: 11/06/23 4:57 AM Result Value Ref Range WBC 3.6 (L) 4.2 - 9.1 K/??L RBC 4.29 (L) 4.63 - 6.08 M/??L Hemoglobin 10.5 (L) 13.7 - 17.5 GM/DL Hematocrit 35.2 (L) 40.1 - 51.0 % MCV 82 79 - 92 fL MCH 24.5 (L) 25.7 - 32.2 pg MCHC 29.8 (L) 32.3 - 36.5 GM/DL RDW 16.7 (H) 11.6 - 14.4 % Platelets 199 140 - 375 K/CU MM MPV 11.3 9.4 - 12.4 fL NRBC Absolute <0.01 0 - 0.012 K/ul Manual Differential Status: Abnormal Collection Time: 11/06/23 4:57 AM Result Value Ref Range Total Counted 100 % Neutros (manual) 62 50 - 65 % % Lymphs (manual) 29 24 - 44 % % Monos (manual) 6 (H) 4 - 5 % % Eos (manual) 3 0 - 3 % RBC Morphology abnormal (A) Normal Platelet Estimate Adequate Adequate Anisocytosis 1+ Ovalocytes 1+ ANC# 2.23 K/??L Basic Metabolic Panel Status: Abnormal Collection Time: 11/06/23 4:58 AM Result Value Ref Range Sodium 136 136 - 146 meq/L Potassium 4.8 3.5 - 5.1 meq/L Chloride 102 102 - 112 meq/L CO2 31 21 - 32 meq/L Anion Gap 8 (L) 9 - 20 BUN 61 (H) 7 - 22 mg/dL Creatinine 3.43 (H) 0.70 - 1.30 mg/dL BUN/Creatinine 18 8 - 20 Glucose 135 (H) 74 - 106 mg/dL Calcium 8.9 8.4 - 10.1 mg/dL Osmolality Calc 291.2 eGFR (mL/min/1.73m2) 20 (L) >=60 mL/min/1.73m2 Magnesium Status: Normal Collection Time: 11/06/23 4:58 AM Result Value Ref Range Magnesium 2.1 1.5 - 2.4 mg/dL Glucose, Nova Meter Status: Abnormal Collection Time: 11/06/23 7:13 AM Result Value Ref Range POC-GLUCOSE 121 (H) 70 - 110 mg/dL Loom Operator Apprentice [id number] Glucose, Nova Meter Status: Abnormal Collection Time: 11/06/23 11:03 AM Result Value Ref Range POC-GLUCOSE 166 (H) 70 - 110 mg/dL Loom Operator Apprentice [id number] XR chest AP portable Narrative: PORTABLE CHEST. 11/06/2023 8:00 AM HISTORY: Shortness of breath, CHF. COMPARISON: 1 day prior. FINDINGS: The cardiac silhouette demonstrates cardiomegaly. The mediastinum is unremarkable. There is mild improvement in the pulmonary vascular congestion. There is no pulmonary edema. There is no pneumothorax. Impression: Mild improvement in the pulmonary vascular congestion. Images reviewed, interpreted, and dictated by Dr. Enzo Alonso. Transcribed by Kayla Shaffer PA-C. Assessment 1. Acute on chronic CKD stage IV, secondary to cardiorenal syndrome type I 2. Chronic kidney disease stage IV secondary to type II cardiorenal, syndrome/hypertensive nephrosclerosis and diabetic nephropathy Repeated Echo with EF:~10-15 %, base creatine ~3 3. Volume overload 4. Anemia 5. Acute combined systolic and diastolic exacerbation of CHF with repeated ejection fraction of 10-15% 6. Type 2 diabetes 7. Peripheral vascular disease/coronary artery disease 8. Hypertension 9. History of COPD Plan -Optimization of cardiac function as per cardiology, patient is on cardioprotective medications, Entresto, Jardiance on hold due to worsening kidney function -Continue with loop diuretics Bumex 2 mg q am,UOP?could adjust up if needed -Creatinine 3.5 close to base ,electrolytes are okay -Avoid nephrotoxins, keep MAP above 65 -Strict intake and output -Renally dose medications -No need for CONSTRUCTION ENGINEERING MANAGER at present time. -Thanks for consultation for along with you ?? [facility] [address] [place] [place], [place], [address] Phone #[phone] Fax #[phone] High complex case * Monika Pennington MD - 11/04/2023 5:48 PM EDT Subjective History of Present Illness: Patient is very poor historian Robert Hurley Jr. is a 58 y.o. male with history of CKD 4 with base creatinine close to ~3, DM,HTN,CHF, left AKA ,difficulty accessing health care resources and keeping follow ups,noncompliance??who presented to [facility] on 10/25 for evaluation of several days of worsening shortness ofbreath and scrotal edema. [facility] as above ,He had echocardiogram done showing EF of 20-25% and was transferred to [facility] for EP evaluation of AICD. ? Yesterday Labs at OSH showed wbc 3.5, hgb 10.5, plt 201, sodium 138, potassium 5.0, creatinine 3.3,mag 2.0. Nephrology was consulted for Renal failure and Volume management 11/03: resting on bed , no new issues Review of Systems Constitutional: Negative. HENT: Negative. Eyes: Negative. Respiratory: Positive for shortness of breath. Cardiovascular: Negative. Gastrointestinal: Negative. Genitourinary: Negative. Skin: Negative. Neurological: Positive for weakness. Psychiatric/Behavioral: Negative. Objective Last Recorded Vitals Blood pressure (!) 142/97, pulse 70, temperature 98.1 ??F (36.7 ??C), temperature source Oral, resp. rate 18, height 1.854 m (6' 1 ), weight 83.5 kg (184 lb), SpO2 100 %. Physical Exam Constitutional: Appearance: Normal appearance. HENT: Head: Normocephalic and atraumatic. Nose: Nose normal. Mouth/Throat: Mouth: Mucous membranes are moist. Eyes: Extraocular Movements: Extraocular movements intact. Pupils: Pupils are equal, round, and reactive to light. Cardiovascular: Rate and Rhythm: Normal rate and regular rhythm. Heart sounds: Normal heart sounds. Pulmonary: Breath sounds: Normal breath sounds. Abdominal: General: Abdomen is flat. Palpations: Abdomen is soft. Musculoskeletal: Cervical back: Normal range of motion and neck supple. Skin: General: Skin is warm and dry. Neurological: Mental Status: He is alert and oriented to person, place, and time. Psychiatric: Mood and Affect: Mood normal. Behavior: Behavior normal. Labs: Results for orders placed or performed during the hospital encounter of 10/29/23 (from the past 24 hour(s)) Glucose, Nova Meter Status: Abnormal Collection Time: 11/03/23 8:34 PM Result Value Ref Range POC-GLUCOSE 127 (H) 70 - 110 mg/dL Loom Operator Apprentice [id number] Magnesium Status: Normal Collection Time: 11/04/23 4:55 AM Result Value Ref Range Magnesium 2.3 1.5 - 2.4 mg/dL Glucose, Nova Meter Status: Abnormal Collection Time: 11/04/23 8:40 AM Result Value Ref Range POC-GLUCOSE 130 (H) 70 - 110 mg/dL Loom Operator Apprentice [id number] Glucose, Nova Meter Status: Abnormal Collection Time: 11/04/23 10:47 AM Result Value Ref Range POC-GLUCOSE 200 (H) 70 - 110 mg/dL Loom Operator Apprentice [id number] Basic Metabolic Panel Status: Abnormal Collection Time: 11/04/23 2:48 PM Result Value Ref Range Sodium 137 136 - 146 meq/L Potassium 4.8 3.5 - 5.1 meq/L Chloride 100 (L) 102 - 112 meq/L CO2 33 (H) 21 - 32 meq/L Anion Gap 9 9 - 20 BUN 56 (H) 7 - 22 mg/dL Creatinine 3.46 (H) 0.70 - 1.30 mg/dL BUN/Creatinine 16 8 - 20 Glucose 108 (H) 74 - 106 mg/dL Calcium 9.1 8.4 - 10.1 mg/dL Osmolality Calc 289.8 eGFR (mL/min/1.73m2) 20 (L) >=60 mL/min/1.73m2 CBC with automated diff Status: Abnormal Collection Time: 11/04/23 2:48 PM Result Value Ref Range WBC 4.0 (L) 4.2 - 9.1 K/??L RBC 4.26 (L) 4.63 - 6.08 M/??L Hemoglobin 10.5 (L) 13.7 - 17.5 GM/DL Hematocrit 34.8 (L) 40.1 - 51.0 % MCV 82 79 - 92 fL MCH 24.6 (L) 25.7 - 32.2 pg MCHC 30.2 (L) 32.3 - 36.5 GM/DL RDW 16.6 (H) 11.6 - 14.4 % Platelets 196 140 - 375 K/CU MM MPV 10.8 9.4 - 12.4 fL % Neutros 62 34 - 68 % % Lymphs 26 22 - 53 % % Monos 9 5 - 12 % % Eos 3 1 - 7 % % Baso 1 0 - 1 % NRBC Absolute <0.01 0 - 0.012 K/ul # Neutros 2.50 1.78 - 5.38 K/??L # Lymphs 1.03 (L) 1.32 - 3.57 K/??L # Monos 0.37 0.30 - 0.82 K/??L # Eos 0.10 0.04 - 0.54 K/??L # Baso <0.03 0.01 - 0.08 K/??L Immature Granulocytes-Relative 0.20 0.01 - 0.43 % # IG <0.03 0.00 - 0.03 K/uL Magnesium Status: Normal Collection Time: 11/04/23 2:48 PM Result Value Ref Range Magnesium 2.2 1.5 - 2.4 mg/dL XR chest AP portable Narrative: PORTABLE CHEST HISTORY: Hypoxia. COMPARISON: One day prior. FINDINGS: The heart is normal in size. There is mildly improved aeration with decrease in left lung atelectasis. The lungs are clear. There is no pneumothorax. Impression: Improving aeration. Images reviewed, interpreted, and dictated by Dr. Frandy Stauffer. Transcribed by Brad Hernandez PA-C. Assessment 1. Acute on chronic CKD stage IV, secondary to cardiorenal syndrome type I 2. Chronic kidney disease stage IV secondary to type II cardiorenal, syndrome/hypertensive nephrosclerosis and diabetic nephropathy Repeated Echo with EF:~10-15 %, base creatine ~3 3. Volume overload 4. Anemia 5. Acute combined systolic and diastolic exacerbation of CHF with repeated ejection fraction of 10-15% 6. Type 2 diabetes 7. Peripheral vascular disease/coronary artery disease 8. Hypertension 9. History of COPD Plan -Optimization of cardiac function as per cardiology, patient is on cardioprotective medications, Entresto, Jardiance on hold due to worsening kidney function -Continue with loop diuretics Bumex 2 mg q am -Creatinine 3.4 close to base ,electrolytes are okay -Avoid nephrotoxins, keep MAP above 65 -Strict intake and output -Renally dose medications -No need for CONSTRUCTION ENGINEERING MANAGER at present time. -Thanks for consultation for along with you ?? [facility] [address] [place] [place], [place], [address] Phone #[phone] Fax #[phone] High complex case * Yousef Polat, MD - 11/04/2023 4:49 PM EDT Store Operations Manager: Chief Complaint: No chief complaint on file. Subjective: NAD Social History: Social History Socioeconomic History ??? Marital status: Unknown Spouse name: Not on file ??? Number of children: Not on file ??? Years of education: Not on file ??? Highest education level: Not on file Occupational History ??? Not on file Tobacco Use ??? Smoking status: Every Day Types: Cigarettes ??? Smokeless tobacco: Never Substance and Sexual Activity ??? Alcohol use: Not Currently ??? Drug use: Never ??? Sexual activity: Not on file Other Topics Concern ??? Not on file Social History Narrative ??? Not on file Social Determinants of Health Financial Resource Strain: High Risk (10/29/2023) Financial Resource Strain ??? : 1 Food Insecurity: Food Insecurity Present (10/29/2023) Food Insecurity ??? : 1 ??? : 0 Transportation Needs: Unmet Transportation Needs (10/29/2023) Transportation Needs ??? : 1 Physical Activity: Inactive (10/29/2023) Physical Activity ??? : 0 Stress: No Stress Concern Present (10/29/2023) Stress ??? : 1 Social Connections: Low Risk (10/29/2023) Family and Community Support ??? : 0 ??? : 0 Intimate Partner Violence: Not on file Housing Stability: Low Risk (10/29/2023) Housing Stability ??? : 0 ??? : 0 Living Arrangements: Alone Type of Residence: Private residence Family History: No family history on file. Medications: No current facility-administered medications on file prior to encounter. Current Outpatient Medications on File Prior to Encounter Medication Sig Dispense Refill ??? albuterol HFA (VENTOLIN HFA) 90 mcg/actuation inhaler Inhale 1 puff by mouth via inhaler every 6 (six) hours as needed for wheezing. ??? aspirin 81 MG EC tablet Take 1 tablet (81 mg total) by mouth daily. ??? atorvastatin (LIPITOR) 80 MG tablet Take 1 tablet (80 mg total) by mouth nightly. ??? carvediloL (COREG) 12.5 MG tablet Take 1 tablet (12.5 mg total) by mouth 2 (two) times daily with breakfast and dinner. ??? furosemide (LASIX) 40 MG tablet Take 1 tablet (40 mg total) by mouth daily as needed (Edema). ??? gabapentin (NEURONTIN) 600 MG tablet Take 1 tablet (600 mg total) by mouth 3 (three) times daily. ??? hydrALAZINE (APRESOLINE) 50 MG tablet Take 1 tablet (50 mg total) by mouth 3 (three) times daily Look-alike/Sound-alike medication. ??? insulin detemir U-100 (LEVEMIR) 100 unit/mL (3 mL) InPn injection Inject 0.13 mLs (13 Units total) subcutaneously nightly. ??? isosorbide dinitrate (ISORDIL) 40 MG tablet Take 1 tablet (40 mg total) by mouth 3 (three) times daily. Review of Systems: Pertinent items are noted in HPI. Physical Exam: Physical Exam Constitutional: General: He is not in acute distress. Appearance: Normal appearance. He is not toxic-appearing or diaphoretic. HENT: Head: Normocephalic and atraumatic. Nose: Nose normal. Mouth/Throat: Mouth: Mucous membranes are moist. Pharynx: Oropharynx is clear. Eyes: Extraocular Movements: Extraocular movements intact. Conjunctiva/sclera: Conjunctivae normal. Pupils: Pupils are equal, round, and reactive to light. Cardiovascular: Rate and Rhythm: Normal rate and regular rhythm. Heart sounds: Normal heart sounds. No murmur heard. No gallop. Pulmonary: Effort: Pulmonary effort is normal. No respiratory distress. Breath sounds: Normal breath sounds. Abdominal: General: Abdomen is flat. Bowel sounds are normal. There is no distension. Palpations: Abdomen is soft. Tenderness: There is no abdominal tenderness. There is no guarding. Musculoskeletal: General: Deformity present. No swelling. Normal range of motion. Cervical back: Normal range of motion and neck supple. Left lower leg: No edema. Comments: Left BKA Skin: General: Skin is warm and dry. Coloration: Skin is not pale. Findings: No erythema. Neurological: General: No focal deficit present. Mental Status: He is alert and oriented to person, place, and time. Cranial Nerves: No cranial nerve deficit. Motor: No weakness. Psychiatric: Mood and Affect: Mood normal. Behavior: Behavior normal. Judgment: Judgment normal. Vitals: Hemodynamic parameters reviewed for last 24 hours. Blood pressure (!) 142/97, pulse 70, temperature 98.1 ??F (36.7 ??C), temperature source Oral, resp. rate 18, height 1.854 m (6' 1 ), weight 83.5 kg (184 lb), SpO2 100 %. Assessment and Plan: ?? *Acute on chronic systolic/diastolic CHF / NYHA class III stage D For volume overload with anasarca on admission LVEF 20 to 25% per OSH echo, 15% reported here as per ECHO 10/29/2023 *Scrotal edema *ASCVD History of prior PCI History of non-STEMI *VHD With aortic regurgitation and mitral regurgitation (echo pending) *Hypertension *Hyperlipidemia *Diabetes mellitus type 2 Insulin-dependent *Peripheral vascular disease History of left cxyyd-tle-lieu amputation (uses a prosthesis) *LECHUGA cirrhosis *COPD With acute on chronic hypoxemic respiratory failure *Noncompliance *KOKO on CKD stage IV *Cellulitis of the right calf Skin culture obtained on 730 showed Klebsiella and Enterobacter species *Low flow low gradient ?? PLAN: 11/04/2023 Labs and telemetry reviewed, creatinine 3.6, continue BB, imdur/hydralazine, additional GDMT can not be introduced due to CKD, he is on Cephalexin and Doxycycline for cellulitis. 11/03/2023 Labs and telemetry reviewed. Life vest provided to patient. Continue diuresis and management of CHFas percardiology team. 11/02/2023 Labs and telemetry reviewed, life vest ordered. Continue Diuresis. Management of cellulitis as per primary team. 11/01/2023 Labs and telemetry reviewed, management of cellulitis as per primary team, will order LifeVest and schedule subcutaneous ICD implant as an outpatient Case discussed with who is the referring physician. 10/31/2023 Labs and tele reviewed, NSVT last night, continue diuresis with monitoring of renal function. Discussed with , patient is not sure what medications he takes, he needs to be on GDMT (BB at least given his renal failure) and needs to show compliance, Also given cellulitis it would be most appropriate at this point to prescribe life vest and have him follow up as outpatient. 10/30/2023 Patient has been placed on GDMT, limitations of increasing and adding guideline directed medical therapy is his renal failure, will increase Toprol-XL dose. Echocardiogram here showed ejection fraction of 15% low-flow low gradient aortic stenosis, patient will require an ICD for primary prevention of sudden cardiac however given recent skin cultures that showed Klebsiella and Enterobacter species, will hold off until we are sure there is no ongoing infection, I examined his right leg which showed no open wounds. I will consider him for subcutaneous ICD once cellulitis/infection is addressed. Continue diuresis and management of congestive heart failure as per cardiology team, nephrology was consulted. 10/29/2023 Telemetry reviewed. Will obtain twelve-lead EKG. We will obtain complete echocardiogram. Agree with initiation of GDMT. Agree with diuresis. We will consult cardiology for assistance with CHF management. We will consult nephrology for assistance with KOKO on CKD. Monitor and replace electrolytes as needed to keep potassium level greater than 4.0 and magnesium greater than 2.0 at all times. BMP and magnesium level pending. Will check TSH and free T4. Discussed wit . Further recommendations pending testing results, clinical course, and response to therapy. Signed: Gilbert Dailey MD 11/04/2023 8:27 PM * Tamara Winters RN - 11/04/2023 3:44 PM EDT Discharge Plan Progress Note Bed accepted at [facility]. Will arrange transportation when insurance approval obtained. CM to follow. Tamara Winters RN * Bing Sebastian DO - 11/04/2023 2:10 PM EDT [facility] Progress Note Patient: Robert Hurley Jr. Subjective Chief Complaint / Reason for Follow-Up Robert Hurley Jr. is a 58 y.o. male on hospital day 6. The principal reason for today's follow up visit is Acute on chronic diastolic CHF (congestive heart failure) (HCC). Interval History Patient seen and evaluated this morning No acute events overnight Hemodynamics and labs for past 24 hours reviewed Patient remains on 3 L nasal cannula this morning saturating at 100% Remains afebrile Blood pressures remain well-controlled between 1 20-1 40s over the past 24 hours Per case management, [facility] provider has noted that he does not feel patient is ready given his clinical status and poor participation in PT Review of Systems weakness and malaise Objective Vitals: Temp: [97.7 ??F (36.5 ??C)-98.2 ??F (36.8 ??C)] 98.1 ??F (36.7 ??C) Pulse: [67-70] 70 Resp: [18] 18 BP: (124-142)/(84-97) 142/97 Intake/Output: Intake/Output Summary (Last 24 hours) at 11/04/2023 1410 Last data filed at 11/04/2023 0923 Gross per 24 hour Intake 580 ml Output 400 ml Net 180 ml Physical exam: Gen: Chronically ill appearing disheveled male resting comfortably, no acute distress HEENT: PERRL, EOMI CVS: RRR, no murmurs, no edema Lung: Bibasilar crackles, no increased WOB, nasal cannula in place Abd: Soft non-distended Skin: Chronic venous stasis in RLE, extensive, onychomycosis RLE MSK: Left AKA Labs: Recent Labs Lab(s) Units 11/04/23 1047 11/04/23 0840 11/04/23 0455 11/03/23 2034 11/03/23 0810 11/03/23 0538 11/02/23 0738 11/02/23 0430 11/01/23 0744 11/01/23 0529 10/31/23 0753 10/31/23 0436 10/30/23 0736 10/30/23 0439 WBC K/??L -- -- -- -- -- -- -- -- -- 4.1* -- 4.6 -- 4.5 HGB GM/DL -- -- -- -- -- -- -- -- -- 10.3* -- 11.5* -- 10.5* HCT % -- -- -- -- -- -- -- -- -- 34.0* -- 38.4* -- 35.6* PLT K/CU MM -- -- -- -- -- -- -- -- -- 200 -- 241 -- 231 MG mg/dL -- -- 2.3 -- -- 2.3 -- 2.0 -- 2.2 -- 2.3 -- 2.4 NA meq/L -- -- -- -- -- 137 -- 136 -- 138 -- 137 -- 138 K meq/L -- -- -- -- -- 4.1 -- 4.3 -- 4.4 -- 4.6 -- 4.8 CL meq/L -- -- -- -- -- 99* -- 97* -- 100* -- 101* -- 105 CO2 meq/L -- -- -- -- -- 32 -- 33* -- 31 -- 31 -- 27 BUN mg/dL -- -- -- -- -- 57* -- 56* -- 52* -- 47* -- 43* CREATININE mg/dL -- -- -- -- -- 3.60* -- 3.89* -- 3.54* -- 3.38* -- 3.35* EGFR mL/min/1.73m2 -- -- -- -- -- 19* -- 17* -- 19* -- 20* -- 21* GLUCOSE mg/dL 200* 130* -- 127* < > 119* < > 161* < > 118* < > 132* < > 88 CALCIUM mg/dL -- -- -- -- -- 8.9 -- 8.9 -- 8.8 -- 9.1 -- 9.1 ALKPHOS U/L -- -- -- -- -- -- -- -- -- -- -- -- -- 171* BILITOT mg/dL -- -- -- -- -- -- -- -- -- -- -- -- -- 1.1 PROT gm/dL -- -- -- -- -- -- -- -- -- -- -- -- -- 6.5 ALT U/L -- -- -- -- -- -- -- -- -- -- -- -- -- 15* AST U/L -- -- -- -- -- -- -- -- -- -- -- -- -- 34 < > = values in this interval not displayed. Results for orders placed or performed during the hospital encounter of 10/29/23 (from the past 24 hour(s)) Glucose, Nova Meter Status: Abnormal Collection Time: 11/03/23 4:53 PM Result Value Ref Range POC-GLUCOSE 186 (H) 70 - 110 mg/dL Loom Operator Apprentice [id number] Glucose, Nova Meter Status: Abnormal Collection Time: 11/03/23 8:34 PM Result Value Ref Range POC-GLUCOSE 127 (H) 70 - 110 mg/dL Loom Operator Apprentice [id number] Magnesium Status: Normal Collection Time: 11/04/23 4:55 AM Result Value Ref Range Magnesium 2.3 1.5 - 2.4 mg/dL Glucose, Nova Meter Status: Abnormal Collection Time: 11/04/23 8:40 AM Result Value Ref Range POC-GLUCOSE 130 (H) 70 - 110 mg/dL Loom Operator Apprentice [id number] Glucose, Nova Meter Status: Abnormal Collection Time: 11/04/23 10:47 AM Result Value Ref Range POC-GLUCOSE 200 (H) 70 - 110 mg/dL Loom Operator Apprentice [id number] Radiology: XR chest AP portable Preliminary Result Improving aeration. Images reviewed, interpreted, and dictated by Dr. Frandy Stauffer. Transcribed by Brad Hernandez PA-C. XR chest AP portable Final Result Vascular congestion and interstitial opacity likely related to mild edema. Images reviewed, interpreted, and dictated by Dr. Stephon Cedillo. Transcribed by Brad Hernandez PA-C. XR chest AP portable Final Result Mild cardiomegaly with pulmonary vascular congestion. Images reviewed, interpreted, and dictated by Dr. Stephon Cedillo. Transcribed by Lia Hawk PA-C. ECHO COMPLETE (DOPPLER / COLOR) W OR WO CONTRAST Final Result XR chest AP portable Final Result 1. Cardiomegaly and mild interstitial opacity favored to be chronic. Follow-up better inflated PA and lateral chest radiograph may be of value. Images reviewed, interpreted, and dictated by Stephon Cedillo MD Medications: Scheduled Meds: ??? ammonium lactate topical BID Given at 11/03/232028 ??? aspirin 81 mg oral Daily 81 mg at 11/04/23 0846 ??? atorvastatin 80 mg oral Every Night 80 mg at 11/03/23 2030 ??? bumetanide 1 mg oral BID 1 mg at 11/03/23 0827 ??? cephalexin 250 mg oral Q8H 250 mg at 11/04/23 1301 ??? doxycycline 100 mg oral Q12H 100 mg at 11/04/23 0846 ??? [Held by provider] empagliflozin 10 mg oral Daily 10 mg at 10/30/23 0831 ??? guaiFENesin 600 mg oral BID 600 mg at 11/04/23 0846 ??? heparin 5,000 Units subcutaneous Q12H 5,000 Units at 11/04/23 0846 ??? hydrALAZINE 10 mg oral Q8H 10 mg at 11/04/23 1302 ??? hydrocortisone topical BID Given at 11/03/23 203 ??? insulin glargine 10 Units subcutaneous Every Night 10 Units at 11/03/232028 ??? insulin lispro 0-18 Units subcutaneous 4x Daily AC 6 Units at 11/04/23 1115 ??? isosorbide dinitrate 10 mg oral TID 10 mg at 11/04/23 0846 ??? loratadine 10 mg oral Daily 10 mg at 11/04/23 0852 ??? melatonin 3 mg oral Every Night 3 mg at 11/03/23 2030 ??? metoprolol succinate 75 mg oral Daily 75 mg at 11/04/23 0846 ??? nicotine 1 patch transdermal Daily ??? [Held by provider] sacubitriL-valsartan 1 tablet oral BID 1 tablet at 10/30/23 0831 Continuous Infusions: PRN Meds: ??? acetaminophen ??? dextrose ??? glucagon ??? glucose ??? hydrOXYzine ??? ipratropium-albuteroL ??? ondansetron Or ??? ondansetron PF ??? oxyCODONE ??? oxyCODONE Assessment and Plan Primary Diagnosis: Acute decompensated HF Secondary Diagnosis: Principal Problem: Acute on chronic diastolic CHF (congestive heart failure) (HCC) #Acute on chronic systolic decompensated HF: #Anasarca - NYHA III, stage D - EF 20-25% at OSH-->15% at our facility - Continue Toprol 75 mg daily - Continue isordil 10 mg TID - Continue hydralazine 10 mg daily - Lifevest delivered and at bedside - EP and cardiology following - GDMT limited in setting of renal insufficiency - Continue p.o. Bumex 1 mg twice daily - Labs reviewed: Magnesium 2.3, serum creatinine pending currently - AM magnesium, BMP ordered - Chest x-ray independently reviewed dated 11/03: No evidence pulmonary edema, mild cardiomegaly withno pleural effusions or other infiltrates noted - Careful I&O monitoring #KOKO on CKD: - External records from [facility] ; baseline appears to be 2.6-3.0 from earlier 2023 in may - Serum creatinine pending #RLE cellulitis: - Baseline chronic venous stasis with superimposed cellulitis - Cultures from OSH with klebsiella and enterobacter - Continue p.o. Doxy and Keflex end date 11/07 #Aortic stenosis: EF 15% on echo with low flow low gradient #Tobacco use disorder: - Continue NRT #LECHUGA Cirrhosis: - Outpatient follow up #Diabetes: - Continue lantus 10 units qhs - Continue SSI Diet: Orders Placed This Encounter Procedures ??? Consistent Carbohydrate Additional Modifiers: Heart Healthy, 2 gram Sodium DVT ppx: SQH Code Status: Full Code Discharge Planning: Barriers to discharge: Medically ready for discharge Expected (tentative) discharge in 2-3 days Expected discharge disposition (home, SNF/Rehab, etc): [facility] Additional discharge needs or delays: TBD Signed: Bing Sebastian DO [facility] Hospitalist * HENRIETTA Garcia/Ann - 11/04/2023 11:06 AM EDT Images from the original note were not included. Inpatient Occupational Therapy Treatment Note Patient Name: Robert Hurley Jr. Date of : 1965 Date of Treatment: 11/04/23 Start Time: 11:05 Stop Time: 11:30 Session Duration: 25 minutes This patient is a 58 y.o. male admitted on 10/29/2023 with Acute on chronic diastolic CHF (congestiveheart failure) ([facility]) [I50.33]. Past 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: Diagnosis Date ??? CHF (congestive heart failure) ([facility]) ??? CKD (chronic kidney disease) ??? COPD (chronic obstructive pulmonary disease) ([facility]) ??? Hx of AKA (above knee amputation), left ([facility]) No past surgical history on file. General Visit Type: Treatment Approved by: Nurse bates Patient Disposition Upon Entry: Supine in bed Patient Verified By: Name and Date of Co-treated by: PT due to level of assistance required for mobility ?? Precautions Weight-Bearing Status: Previous L AKA Precautions: Fall risk Isolation Precautions: Standard Subjective Subjective: Pt agreeable, understand that participation is important despite pain Pain 0-10 SCALE Pain location: groin area 11/05. Pain intervention: Medication (See eMAR). Response to intervention:Not changed Cognition Cognition: Overall cognitive status: mildly impaired Arousal/alertness: Appropriate response to stimuli Attention span: Attends with cues to redirect Memory: Decreased recall of precautions Orientation level: Oriented x4 Following commands: Able to follow commands appropriately with verbal cueing Safety judgment: Good awareness of safety precautions Awareness of errors: Assistance require to identify errors made Deficits: aware of deficits Impulsive: Within functional limits (WFL) Appears to have poor health literacy, needs assistance to manage health condition, and the benefitsof therapy for heart failure Objective Vitals: WNL Bed Mobility: Supine to Sit: stand by assist Sit to Supine: stand by assist ?? Transfers Sit to Stand: moderate assistance, 2-person assist, gait belt used, rolling walker used Stand to Sit: moderate assistance, 2-person assist, gait belt used, rolling walker used W/o prosthetic d/t pain/swelling ?? ADLs:Lower body dressing: can assist with partial completion of sock donning in long sitting Balance:Static sitting balance:Good: Patient able to maintain balance without handheld support; limited postural sway Dynamic sitting balance:Fair: Patient accepts minimal challenge; able to maintain balance while turning head/trunk Static standing balance:Poor: Patient required handheld support and moderate to maximal support to maintain position Dynamic standing balance:Poor: Patient unable to accept challenge or move without loss of balance Activity Tolerance Was able to tolerate this activity: stood twice at side of bed Would be able to tolerate more: yes Barriers to activity: client with pain in groin area and fatigue Treatment Skilled service: Therapist facilitated performance of ADLs by providing verbal cues for body positioning/body mechanics, monitoring response in terms of BP/shortness of breath/fatigue/ and other symptoms, providing physical support as needed. With this support, client was able to participate in donning sock on R LE, sitting edge of bed, and standing (one R LE, using rolling walker) twice, with therapist providing cues for safety, posture, cueing client to tighten bottom, use arms for support. Assessment Assessment Therapist engaged client in ADLs and mobility to assess changes in current ability/performance compared to known baseline. Client appears to have the following new challenges: client unable to wear prosthetic leg, deconditioned, fatigued, with groin pain, which affect this patient's ability to complete basic toileting, self-feeding, simple hygiene/bathing, and basic dressing at the prior level offunction and in the prior living environment, in this case: home. In this context, it is recommended to continue inpatient OT services. Plan Recommendations Discharge recommendations:??Patient would benefit from 1-2 hours of multidisciplinary therapy per day upon discharge from acute care setting to assist with returning to prior level of functioning. DME recommendations:??Patient would benefit from??hospital bed??at discharge. ?? Treatment Plan:??Adaptive equipment training, ADL training, Co-treat with physical therapy, DME recommendations , Energy conservation instruction, Functional mobility/transfer training, Home program instruction, Other activities to increase UE function, Patient/family/caregiver education, Precaution education/training, Safety training, Strengthening?? OT Frequency/Duration:??3x/week for 14 days ?? Goals Bathing:sponge bath seated??with modified independence. Lower body dressing:??donning and doffing lower body clothing, at bed level??with modified independence. Functional transfers:??stand pivot transfer,??with rolling walker??with modified independence. ?? Target Date:?11/14/2023 Goals were discussed with??patient ?? Education Patient??educated on safety, use of call light, role of occupational therapy, patient's plan of care, ADLs, functional mobility??and following, they were??able to verbalize understanding, nod head tounderstanding. ?? Patient Disposition Upon Leaving Sitting upright in bed, Call Light/Pull Cord in reach, All needs met and within reach, Nursing??at bedside, Side rails up,??tray table in front ?? If this patient discharges prior to next therapy session, this note serves as the patient's discharge summary. Electronically signed by LIZZY Garcia - 11/04/2023 - 12:55 PM EDT * Rajeev Walton, PT - 11/04/2023 11:05 AM EDT Images from the original note were not included. Inpatient Physical Therapy Treatment Patient Name: Robert Hulrey Jr. Date of : 1965 Date of Treatment: 11/04/23 Start Time 1105 Stop Time 1130 Session Duration 25 minutes General Visit Type: Treatment Approved by: Nurse bates Patient Disposition Upon Entry: Supine in bed Patient Verified By: Name and Date of Co-treated by: OT Precautions Weight-Bearing Status: Previous L AKA Precautions: Fall risk Isolation Precautions: Standard Subjective Subjective: Patient agreeable to physical therapy treatment. Pain Groin pain but did not rate Cognition Arousal/Alertness: Appropriate response to stimuli Following commands: Able to follow commands appropriately with tactile cueing Able to follow commands appropriately with verbal cueing Objective Functional Mobility Bed Mobility: Supine to Sit: stand by assist Sit to Supine: stand by assist Transfers Sit to Stand: moderate assistance, 2-person assist, gait belt used, rolling walker used Stand to Sit: moderate assistance, 2-person assist, gait belt used, rolling walker used W/o prosthetic d/t pain/swelling Gait Unable to assess due to weakness Stair Management Unable to assess due to weakness. Wheelchair Mobility Unable to assess due to weakness. AM-PAC Basic Mobility Inpatient Short Form How much difficulty does the patient currently have: Turning over in bed (including adjusting bedclothes, sheets, and blankets)? (1) Total/Unable (not able to do the activity or can only perform the activity using assistive devices or requires assistance from another person, including supervision or cueing for safety) Sitting down on and standing up from a chair with arms (e.g., wheelchair, bedside commode, etc.)? (1) Total/Unable (not able to do the activity or can only perform the activity using assistive devices or requires assistance from another person, including supervision or cueing for safety) Moving from lying on back to sitting on side of bed? (1) Total/Unable (not able to do the activity or can only perform the activity using assistive devices or requires assistance from another person,including supervision or cueing for safety) How much help from another person does the patient currently need: Moving to and from a bed to a chair (including a wheelchair)? (2) A lot (Maximal/Moderate assist) Need to walk in hospital room? (1) Total/Unable (Total assist/dependent) Climbing 3-5 steps with a railing? (1) Total/Unable (Total assist/dependent) Score Raw score=7 t-scale score=26.42 Standard error=4.33 CMS 0-100%=92.36% MDC=4.72 A raw score of >= 16 is significantly associated with increased odds of discharge to home in addition to consideration made for the patient's cognition and social determinants of health. Balance Static/dynamic sitting and static/dynamic standing balance grades Balance Grade Sitting Static Good - patient able to maintain balance without handhold support, limited postural sway Sitting Dynamic Fair - patient accepts minimal challenge; able to maintain balance while turning head/trunk Standing Static Fair - patient able to maintain balance with handhold support; may require occasional minimal assistance Standing Dynamic Fair - patient accepts minimal challenge; able to maintain balance while turning head/trunk Activity Tolerance Patient limited with activity/intervention due to pain, deconditioning and weakness Treatment Patient sat EOB and performed 2 sit to stands w/ RWx as described above. Patient remained standing for ~30 seconds each repetition. Once back to supine, patient was instructed in side lying hip extension for LLE. Assessment Patient participated well in therapy demonstrating improvements in transfers. Patient remains limited by deficits listed above and would cont to benefit from skilled IPPT. Plan Treatment plan: Continue per POC. PT Frequency/Duration: 5x/week for 14 days Recommendations Discharge recommendations: Patient would benefit from 1-2 hours of multidisciplinary therapy per day upon discharge from acute care setting to assist with returning to prior level of functioning. DME recommendations: Unable to make recommendations at this time. Goals Supine to/from sit:??Complete ind?? Gait:??complete 50' with min A x1 with RWx without prosthesis Stair Negotiation:??complete 3 steps with Min A x1 with RWx without prosthesis Transfer:??complete Calista with RWx bed to/from Target Date:?11/14/2023 Progress towards goals: progressing Education Patient educated on safety, use of call button, role of physical therapy, therapeutic exercise, transfers and bed mobility and following, they were able to verbalize and demonstrate understanding. Nofurther questions or concerns stated. Patient Disposition Upon Leaving Supine in bed, Call Light/Pull Cord in reach, All needs met and within reach, Nursing aware/notified If this patient discharges prior to next therapy session, this note serves as the patient's discharge summary. Electronically signed by Rajeev Walton PT - 11/04/23 - 11:39 AM EDT * Kacy Montez MD - 11/04/2023 8:43 AM EDT [facility] -progress note Subjective: He feels relatively better today Health Status: Allergies Penicillin Home Medications: Prior to Admission medications Medication Sig Start Date End Date Taking? Authorizing Provider dapagliflozin propanediol (FARXIGA) 10 mg tablet Take 1 tablet (10 mg total) by mouth daily. Yes Historical Provider, albuterol HFA (VENTOLIN HFA) 90 mcg/actuation inhaler Inhale 1 puff by mouth via inhaler every 6 (six) hours as needed for wheezing. Historical Provider, aspirin 81 MG EC tablet Take 1 tablet (81 mg total) by mouth daily. Historical Provider, atorvastatin (LIPITOR) 80 MG tablet Take 1 tablet (80 mg total) by mouth nightly. Historical Provider, carvediloL (COREG) 12.5 MG tablet Take 1 tablet (12.5 mg total) by mouth 2 (two) times daily with breakfast and dinner. Historical Provider, clopidogreL (PLAVIX) 75 mg tablet Take 1 tablet (75 mg total) by mouth daily Look-alike/Sound-alike medication. Historical Provider, furosemide (LASIX) 40 MG tablet Take 1 tablet (40 mg total) by mouth daily as needed (Edema). Historical Provider, gabapentin (NEURONTIN) 600 MG tablet Take 1 tablet (600 mg total) by mouth 3 (three) times daily. Historical Provider, hydrALAZINE (APRESOLINE) 50 MG tablet Take 1 tablet (50 mg total) by mouth 3 (three) times daily Look-alike/Sound-alike medication. Historical Provider, insulin detemir U-100 (LEVEMIR) 100 unit/mL (3 mL) InPn injection Inject 0.13 mLs (13 Units total) subcutaneously nightly. Historical Provider, isosorbide dinitrate (ISORDIL) 40 MG tablet Take 1 tablet (40 mg total) by mouth 3 (three) times daily. Historical Provider, Past 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: Pt has a past medical history of CHF (congestive heart failure) ([facility]), CKD (chronic kidney disease), COPD (chronic obstructive pulmonary disease) ([facility]), and AKA (above knee amputation), left ([facility]). Surgical History: left heart catheterization Tobacco History Pt reports that he has been smoking cigarettes. He has never used smokeless tobacco. Alcohol History Pt reports that he does not currently use alcohol. Drug Use History Pt reports no history of drug use. Family History Noncontributory OBJECTIVE Vital ranges lat 24 hours Temp: [97.7 ??F (36.5 ??C)-98.2 ??F (36.8 ??C)] 97.7 ??F (36.5 ??C) Pulse: [67-69] 67 Resp: [18] 18 BP: (124-139)/(84-95) 139/93 Intake and Output 24 hours: Intake/Output Summary (Last 24 hours) at 11/04/2023 0843 Last data filed at 11/04/2023 0500 Gross per 24 hour Intake 340 ml Output 400 ml Net -60 ml Net I&O this admission: Net IO Since Admission: -2,550 mL [11/04/23 0843] PHYSICAL EXAMINATION General: Lethargic, ill-appearing HEENT: atraumatic and normocephalic, no conjunctival injection, no icterus Neck: supple, no JVD Chest/Resp: Chest is clear bilaterally. Cardio: S1 and S2 normal, systolic murmur, l Abdomen/GI: The abdomen is soft without tenderness Extremities: ++ edema, cellulitis in the right leg,, left above-knee amputation. Skin: no rashes Neuro: no focal neurologic deficits grossly AOx3 Inpatient Medications ammonium lactate, , topical, BID aspirin, 81 mg, oral, Daily atorvastatin, 80 mg, oral, Every Night bumetanide, 1 mg, oral, BID cephalexin, 250 mg, oral, Q8H doxycycline, 100 mg, oral, Q12H [Held by provider] empagliflozin, 10 mg, oral, Daily guaiFENesin, 600 mg, oral, BID heparin, 5,000 Units, subcutaneous, Q12H hydrALAZINE, 10 mg, oral, Q8H hydrocortisone, , topical, BID insulin glargine, 10 Units, subcutaneous, Every Night insulin lispro, 0-18 Units, subcutaneous, 4x Daily AC isosorbide dinitrate, 10 mg, oral, TID loratadine, 10 mg, oral, Daily melatonin, 3 mg, oral, Every Night metoprolol succinate, 75 mg, oral, Daily nicotine, 1 patch, transdermal, Daily [Held by provider] sacubitriL-valsartan, 1 tablet, oral, BID Results Review: Labs: WBC Date Value Ref Range Status 11/01/2023 4.1 (L) 4.2 - 9.1 K/??L Final 10/31/2023 4.6 4.2 - 9.1 K/??L Final 10/30/2023 4.5 4.2 - 9.1 K/??L Final Hemoglobin Date Value Ref Range Status 11/01/2023 10.3 (L) 13.7 - 17.5 GM/DL Final 10/31/2023 11.5 (L) 13.7 - 17.5 GM/DL Final 10/30/2023 10.5 (L) 13.7 - 17.5 GM/DL Final Platelets Date Value Ref Range Status 11/01/2023 200 140 - 375 K/CU MM Final 10/31/2023 241 140 - 375 K/CU MM Final 10/30/2023 231 140 - 375 K/CU MM Final Creatinine Date Value Ref Range Status 11/03/2023 3.60 (H) 0.70 - 1.30 mg/dL Final 11/02/2023 3.89 (H) 0.70 - 1.30 mg/dL Final 11/01/2023 3.54 (H) 0.70 - 1.30 mg/dL Final BUN Date Value Ref Range Status 11/03/2023 57 (H) 7 - 22 mg/dL Final 11/02/2023 56 (H) 7 - 22 mg/dL Final 11/01/2023 52 (H) 7 - 22 mg/dL Final Potassium Date Value Ref Range Status 11/03/2023 4.1 3.5 - 5.1 meq/L Final 11/02/2023 4.3 3.5 - 5.1 meq/L Final 11/01/2023 4.4 3.5 - 5.1 meq/L Final Sodium Date Value Ref Range Status 11/03/2023 137 136 - 146 meq/L Final 11/02/2023 136 136 - 146 meq/L Final 11/01/2023 138 136 - 146 meq/L Final Magnesium Date Value Ref Range Status 11/04/2023 2.3 1.5 - 2.4 mg/dL Final 11/03/2023 2.3 1.5 - 2.4 mg/dL Final 11/02/2023 2.0 1.5 - 2.4 mg/dL Final AST Date Value Ref Range Status 10/30/2023 34 5 - 37 U/L Final ALT Date Value Ref Range Status 10/30/2023 15 (L) 16 - 61 U/L Final Alkaline Phosphatase Date Value Ref Range Status 10/30/2023 171 (H) 27 - 136 U/L Final TSH Date Value Ref Range Status 10/29/2023 2.420 0.358 - 3.740 uIU/mL Final Imaging: XR chest AP portable Narrative: PORTABLE CHEST HISTORY: Hypoxia. COMPARISON: One day prior. FINDINGS: The heart is upper limits of normal in size. There is mild vascular congestion and interstitial opacity. Findings likely secondary to mild edema. There is no pneumothorax. Impression: Vascular congestion and interstitial opacity likely related to mild edema. Images reviewed, interpreted, and dictated by Dr. Stephon Cedillo. Transcribed by Brad Hernandez PA-C. Problem list: Principal Problem: Acute on chronic diastolic CHF (congestive heart failure) (HCC) Impression and Plan: IMPRESSION: * Acute combined systolic and diastolic heart failure with reduced ejection fraction, stage C, NYHAclass III A. EF 20-25% per echocardiogram at outside facility * NSVT * Atherosclerotic cardiovascular disease with history of PCI * Valvular heart disease history of AR/MR * Hypertension * Dyslipidemia * Diabetes mellitus type 2 * Peripheral vascular disease with history of AKA * LECHUGA cirrhosis * KOKO on CKD stage IV * COPD * History of medical noncompliance Transition to oral diuretics today Electrophysiology planning for LifeVest and outpatient subcutaneous ICD implantation Heart failure education provided Further recommendation pending response Continue to hold Jardiance and Entresto for now PLAN: 11/04/2023 -Will transition the patient to oral diuretics today - For his cardiomyopathy, given his acute on chronic kidney disease, would recommend to continue tohold on any nephrotoxic medication, continue to hold Jardiance and Entresto. -He is not a candidate for spironolactone giving severe kidney disease -Would recommend to continue hydralazine/Isorbid dinitrate at the current dose -Continue metoprolol succinate -Electrophysiology planning for LifeVest and outpatient subcutaneous ICD placement -Would recommend follow-up in the cardiology clinic in few weeks after discharge - No further cardiac testing/imaging and medication at this time, his heart failure medication can be adjusted as an outpatient when he is more stable -Will sign off, please call cardiology service if you have any further question or concern. 11/03/2023 -Would recommend to continue IV diuresis today, plan to switch to oral tomorrow -For his cardiomyopathy, given his acute on chronic kidney disease, would recommend to continue to hold on any nephrotoxic medication, continue to hold Jardiance and Entresto. -He is not a candidate for spironolactone giving severe kidney disease -Would recommend to continue hydralazine/Isorbid dinitrate at the current dose -Continue metoprolol succinate -Overall poor prognosis 11/02/2023 -Patient continued to be volume overloaded, renal function has worsened, will recommend to continueIV diuresis, appreciate nephrology recommendation. -Continue to hold nephrotoxic medication -Overall poor prognosis 11/01/2023 -Patient still volume overloaded, worsening renal function, would recommend to continue IV diuresis -Appreciate nephrology consult. -Will continue to hold on any nephrotoxic medications at this point. -Further recommendation pending clinical course. 10/31/2023 -Would recommend to continue IV diuresis with Bumex 2 mg twice daily, close monitoring of ins and outs, electrolytes, renal function -Replace potassium and magnesium, keep potassium between 4 and 5, magnesium above 2 -Acute kidney injury, worsening renal function, would recommend to hold on any nephrotoxic medication (hold Jardiance and Entresto). Would recommend nephrology consult -Blood pressure was slight elevated today, adding hydralazine and nitrate for now. -Further recommendation pending clinical course. 10/30/2023 -Patient with acute on chronic combined systolic and diastolic heart failure, EF of 20%, ischemic cardiomyopathy, acute on chronic severe chronic kidney disease stage IV would recommend to continue diuresis with IV Bumex 2 mg twice daily, close monitoring of ins and outs, electrolytes, renal function. -Would recommend nephrology consultation -Would recommend to hold nephrotoxic medication (will hold Entresto and Jardiance at this point) -BB for ICD consideration -Further recommendation pending his clinical course * Gilbert Dailey MD - 11/03/2023 8:21 PM EDT Store Operations Manager: Chief Complaint: No chief complaint on file. Subjective: NAD Social History: Social History Socioeconomic History ??? Marital status: Unknown Spouse name: Not on file ??? Number of children: Not on file ??? Years of education: Not on file ??? Highest education level: Not on file Occupational History ??? Not on file Tobacco Use ??? Smoking status: Every Day Types: Cigarettes ??? Smokeless tobacco: Never Substance and Sexual Activity ??? Alcohol use: Not Currently ??? Drug use: Never ??? Sexual activity: Not on file Other Topics Concern ??? Not on file Social History Narrative ??? Not on file Social Determinants of Health Financial Resource Strain: High Risk (10/29/2023) Financial Resource Strain ??? : 1 Food Insecurity: Food Insecurity Present (10/29/2023) Food Insecurity ??? : 1 ??? : 0 Transportation Needs: Unmet Transportation Needs (10/29/2023) Transportation Needs ??? : 1 Physical Activity: Inactive (10/29/2023) Physical Activity ??? : 0 Stress: No Stress Concern Present (10/29/2023) Stress ??? : 1 Social Connections: Low Risk (10/29/2023) Family and Community Support ??? : 0 ??? : 0 Intimate Partner Violence: Not on file Housing Stability: Low Risk (10/29/2023) Housing Stability ??? : 0 ??? : 0 Living Arrangements: Alone Type of Residence: Private residence Family History: No family history on file. Medications: No current facility-administered medications on file prior to encounter. Current Outpatient Medications on File Prior to Encounter Medication Sig Dispense Refill ??? albuterol HFA (VENTOLIN HFA) 90 mcg/actuation inhaler Inhale 1 puff by mouth via inhaler every 6 (six) hours as needed for wheezing. ??? aspirin 81 MG EC tablet Take 1 tablet (81 mg total) by mouth daily. ??? atorvastatin (LIPITOR) 80 MG tablet Take 1 tablet (80 mg total) by mouth nightly. ??? carvediloL (COREG) 12.5 MG tablet Take 1 tablet (12.5 mg total) by mouth 2 (two) times daily with breakfast and dinner. ??? furosemide (LASIX) 40 MG tablet Take 1 tablet (40 mg total) by mouth daily as needed (Edema). ??? gabapentin (NEURONTIN) 600 MG tablet Take 1 tablet (600 mg total) by mouth 3 (three) times daily. ??? hydrALAZINE (APRESOLINE) 50 MG tablet Take 1 tablet (50 mg total) by mouth 3 (three) times daily Look-alike/Sound-alike medication. ??? insulin detemir U-100 (LEVEMIR) 100 unit/mL (3 mL) InPn injection Inject 0.13 mLs (13 Units total) subcutaneously nightly. ??? isosorbide dinitrate (ISORDIL) 40 MG tablet Take 1 tablet (40 mg total) by mouth 3 (three) times daily. Review of Systems: Pertinent items are noted in HPI. Physical Exam: Physical Exam Constitutional: General: He is not in acute distress. Appearance: Normal appearance. He is not toxic-appearing or diaphoretic. HENT: Head: Normocephalic and atraumatic. Nose: Nose normal. Mouth/Throat: Mouth: Mucous membranes are moist. Pharynx: Oropharynx is clear. Eyes: Extraocular Movements: Extraocular movements intact. Conjunctiva/sclera: Conjunctivae normal. Pupils: Pupils are equal, round, and reactive to light. Cardiovascular: Rate and Rhythm: Normal rate and regular rhythm. Heart sounds: Normal heart sounds. No murmur heard. No gallop. Pulmonary: Effort: Pulmonary effort is normal. No respiratory distress. Breath sounds: Normal breath sounds. Abdominal: General: Abdomen is flat. Bowel sounds are normal. There is no distension. Palpations: Abdomen is soft. Tenderness: There is no abdominal tenderness. There is no guarding. Musculoskeletal: General: Deformity present. No swelling. Normal range of motion. Cervical back: Normal range of motion and neck supple. Left lower leg: No edema. Comments: Left BKA Skin: General: Skin is warm and dry. Coloration: Skin is not pale. Findings: No erythema. Neurological: General: No focal deficit present. Mental Status: He is alert and oriented to person, place, and time. Cranial Nerves: No cranial nerve deficit. Motor: No weakness. Psychiatric: Mood and Affect: Mood normal. Behavior: Behavior normal. Judgment: Judgment normal. Vitals: Hemodynamic parameters reviewed for last 24 hours. Blood pressure 125/85, pulse 68, temperature 98.1 ??F (36.7 ??C), temperature source Oral, resp. rate 18, height 1.854 m (6' 1 ), weight 92.8 kg (204 lb 8 oz), SpO2 97 %. Assessment and Plan: ?? *Acute on chronic systolic/diastolic CHF / NYHA class III stage D For volume overload with anasarca on admission LVEF 20 to 25% per OSH echo, 15% reported here as per ECHO 10/29/2023 *Scrotal edema *ASCVD History of prior PCI History of non-STEMI *VHD With aortic regurgitation and mitral regurgitation (echo pending) *Hypertension *Hyperlipidemia *Diabetes mellitus type 2 Insulin-dependent *Peripheral vascular disease History of left [id number] amputation (uses a prosthesis) *LECHUGA cirrhosis *COPD With acute on chronic hypoxemic respiratory failure *Noncompliance *KOKO on CKD stage IV *Cellulitis of the right calf Skin culture obtained on 730 showed Klebsiella and Enterobacter species *Low flow low gradient ?? PLAN: 11/03/2023 Labs and telemetry reviewed. Life vest provided to patient. Continue diuresis and management of CHFas percardiology team. 11/02/2023 Labs and telemetry reviewed, life vest ordered. Continue Diuresis. Management of cellulitis as per primary team. 11/01/2023 Labs and telemetry reviewed, management of cellulitis as per primary team, will order LifeVest and schedule subcutaneous ICD implant as an outpatient Case discussed with who is the referring physician. 10/31/2023 Labs and tele reviewed, NSVT last night, continue diuresis with monitoring of renal function. Discussed with , patient is not sure what medications he takes, he needs to be on GDMT (BB at least given his renal failure) and needs to show compliance, Also given cellulitis it would be most appropriate at this point to prescribe life vest and have him follow up as outpatient. 10/30/2023 Patient has been placed on GDMT, limitations of increasing and adding guideline directed medical therapy is his renal failure, will increase Toprol-XL dose. Echocardiogram here showed ejection fraction of 15% low-flow low gradient aortic stenosis, patient will require an ICD for primary prevention of sudden cardiac however given recent skin cultures that showed Klebsiella and Enterobacter species, will hold off until we are sure there is no ongoing infection, I examined his right leg which showed no open wounds. I will consider him for subcutaneous ICD once cellulitis/infection is addressed. Continue diuresis and management of congestive heart failure as per cardiology team, nephrology was consulted. 10/29/2023 Telemetry reviewed. Will obtain twelve-lead EKG. We will obtain complete echocardiogram. Agree with initiation of GDMT. Agree with diuresis. We will consult cardiology for assistance with CHF management. We will consult nephrology for assistance with KOKO on CKD. Monitor and replace electrolytes as needed to keep potassium level greater than 4.0 and magnesium greater than 2.0 at all times. BMP and magnesium level pending. Will check TSH and free T4. Discussed wit . Further recommendations pending testing results, clinical course, and response to therapy. Signed: Gilbert Dailey MD 11/03/2023 8:27 PM * Monika Pennington MD - 11/03/2023 5:44 PM EDT Subjective History of Present Illness: Patient is very poor historian Robert Hurley Jr. is a 58 y.o. male with history of CKD 4 with base creatinine close to ~3, DM,HTN,CHF, left AKA ,difficulty accessing health care resources and keeping follow ups,noncompliance??who presented to [facility] on 10/25 for evaluation of several days of worsening shortness ofbreath and scrotal edema. [facility] as above ,He had echocardiogram done showing EF of 20-25% and was transferred to [facility] for EP evaluation of AICD. ? Yesterday Labs at OSH showed wbc 3.5, hgb 10.5, plt 201, sodium 138, potassium 5.0, creatinine 3.3,mag 2.0. Nephrology was consulted for Renal failure and Volume management 11/02: resting on bed , no new issues Review of Systems Constitutional: Negative. HENT: Negative. Eyes: Negative. Respiratory: Positive for shortness of breath. Cardiovascular: Negative. Gastrointestinal: Negative. Genitourinary: Negative. Skin: Negative. Neurological: Positive for weakness. Psychiatric/Behavioral: Negative. Objective Last Recorded Vitals Blood pressure (!) 142/97, pulse 70, temperature 98.1 ??F (36.7 ??C), temperature source Oral, resp. rate 18, height 1.854 m (6' 1 ), weight 83.5 kg (184 lb), SpO2 100 %. Physical Exam Constitutional: Appearance: Normal appearance. HENT: Head: Normocephalic and atraumatic. Nose: Nose normal. Mouth/Throat: Mouth: Mucous membranes are moist. Eyes: Extraocular Movements: Extraocular movements intact. Pupils: Pupils are equal, round, and reactive to light. Cardiovascular: Rate and Rhythm: Normal rate and regular rhythm. Heart sounds: Normal heart sounds. Pulmonary: Breath sounds: Normal breath sounds. Abdominal: General: Abdomen is flat. Palpations: Abdomen is soft. Musculoskeletal: Cervical back: Normal range of motion and neck supple. Skin: General: Skin is warm and dry. Neurological: Mental Status: He is alert and oriented to person, place, and time. Psychiatric: Mood and Affect: Mood normal. Behavior: Behavior normal. Labs: Results for orders placed or performed during the hospital encounter of 10/29/23 (from the past 24 hour(s)) Glucose, Nova Meter Status: Abnormal Collection Time: 11/03/23 8:34 PM Result Value Ref Range POC-GLUCOSE 127 (H) 70 - 110 mg/dL Loom Operator Apprentice [id number] Magnesium Status: Normal Collection Time: 11/04/23 4:55 AM Result Value Ref Range Magnesium 2.3 1.5 - 2.4 mg/dL Glucose, Nova Meter Status: Abnormal Collection Time: 11/04/23 8:40 AM Result Value Ref Range POC-GLUCOSE 130 (H) 70 - 110 mg/dL Loom Operator Apprentice [id number] Glucose, Nova Meter Status: Abnormal Collection Time: 11/04/23 10:47 AM Result Value Ref Range POC-GLUCOSE 200 (H) 70 - 110 mg/dL Loom Operator Apprentice [id number] Basic Metabolic Panel Status: Abnormal Collection Time: 11/04/23 2:48 PM Result Value Ref Range Sodium 137 136 - 146 meq/L Potassium 4.8 3.5 - 5.1 meq/L Chloride 100 (L) 102 - 112 meq/L CO2 33 (H) 21 - 32 meq/L Anion Gap 9 9 - 20 BUN 56 (H) 7 - 22 mg/dL Creatinine 3.46 (H) 0.70 - 1.30 mg/dL BUN/Creatinine 16 8 - 20 Glucose 108 (H) 74 - 106 mg/dL Calcium 9.1 8.4 - 10.1 mg/dL Osmolality Calc 289.8 eGFR (mL/min/1.73m2) 20 (L) >=60 mL/min/1.73m2 CBC with automated diff Status: Abnormal Collection Time: 11/04/23 2:48 PM Result Value Ref Range WBC 4.0 (L) 4.2 - 9.1 K/??L RBC 4.26 (L) 4.63 - 6.08 M/??L Hemoglobin 10.5 (L) 13.7 - 17.5 GM/DL Hematocrit 34.8 (L) 40.1 - 51.0 % MCV 82 79 - 92 fL MCH 24.6 (L) 25.7 - 32.2 pg MCHC 30.2 (L) 32.3 - 36.5 GM/DL RDW 16.6 (H) 11.6 - 14.4 % Platelets 196 140 - 375 K/CU MM MPV 10.8 9.4 - 12.4 fL % Neutros 62 34 - 68 % % Lymphs 26 22 - 53 % % Monos 9 5 - 12 % % Eos 3 1 - 7 % % Baso 1 0 - 1 % NRBC Absolute <0.01 0 - 0.012 K/ul # Neutros 2.50 1.78 - 5.38 K/??L # Lymphs 1.03 (L) 1.32 - 3.57 K/??L # Monos 0.37 0.30 - 0.82 K/??L # Eos 0.10 0.04 - 0.54 K/??L # Baso <0.03 0.01 - 0.08 K/??L Immature Granulocytes-Relative 0.20 0.01 - 0.43 % # IG <0.03 0.00 - 0.03 K/uL Magnesium Status: Normal Collection Time: 11/04/23 2:48 PM Result Value Ref Range Magnesium 2.2 1.5 - 2.4 mg/dL XR chest AP portable Narrative: PORTABLE CHEST HISTORY: Hypoxia. COMPARISON: One day prior. FINDINGS: The heart is normal in size. There is mildly improved aeration with decrease in left lung atelectasis. The lungs are clear. There is no pneumothorax. Impression: Improving aeration. Images reviewed, interpreted, and dictated by Dr. Frandy Stauffer. Transcribed by Brad Hernandez PA-C. Assessment 1. Acute on chronic CKD stage IV, secondary to cardiorenal syndrome type I 2. Chronic kidney disease stage IV secondary to type II cardiorenal, syndrome/hypertensive nephrosclerosis and diabetic nephropathy Repeated Echo with EF:~10-15 %, base creatine ~3 3. Volume overload 4. Anemia 5. Acute combined systolic and diastolic exacerbation of CHF with repeated ejection fraction of 10-15% 6. Type 2 diabetes 7. Peripheral vascular disease/coronary artery disease 8. Hypertension 9. History of COPD Plan -Optimization of cardiac function as per cardiology, patient is on cardioprotective medications -Continue with loop diuretics Bumex 03/29 -Creatinine 3.6 improved from yesterday ,electrolytes are okay -Avoid nephrotoxins, keep MAP above 65 -Strict intake and output -Renally dose medications -No need for CONSTRUCTION ENGINEERING MANAGER at present time. -Thanks for consultation for along with you ?? [facility] [address] [place] [place], [place], [address] Phone #[phone] Fax #[phone] High complex case * Bing Sebastian, - 11/03/2023 5:26 PM EDT [facility] Progress Note Patient: Robert Hurley Jr. Subjective Chief Complaint / Reason for Follow-Up Robert Hurley Jr. is a 58 y.o. male on hospital day 5. The principal reason for today's follow up visit is Acute on chronic diastolic CHF (congestive heart failure) (HCC). Interval History Patient seen and evaluated this morning No acute events overnight Hemodynamics and labs for past 24 hours reviewed Patient on 3 L nasal cannula today, his respiratory status is improved He is now amenable to placement on discharge Review of Systems Gen: negative for fevers or chills CVS: negative for palpitations, chest pain, lower extremity edema Respiratory: negative for cough or dyspnea Gastrointestinal: negative for nausea, vomiting, diarrhea, constipation Skin: negative for rash or erythema Objective Vitals: Temp: [97.7 ??F (36.5 ??C)-98.4 ??F (36.9 ??C)] 98.1 ??F (36.7 ??C) Pulse: [68-70] 68 Resp: [18-22] 18 BP: (123-139)/(80-85) 125/85 Intake/Output: Intake/Output Summary (Last 24 hours) at 11/03/2023 1726 Last data filed at 11/03/2023 0600 Gross per 24 hour Intake -- Output 200 ml Net -200 ml Physical exam: Gen: Chronically ill appearing disheveled male resting comfortably, no acute distress HEENT: PERRL, EOMI CVS: RRR, no murmurs, no edema Lung: Bibasilar crackles, no increased WOB, nasal cannula in place Abd: Soft non-distended Skin: Chronic venous stasis in RLE, extensive, onychomycosis RLE MSK: Left AKA Labs: Recent Labs Lab(s) Units 11/03/23 1653 11/03/23 1123 11/03/23 0810 11/03/23 0538 11/02/23 0738 11/02/23 0430 11/01/23 0744 11/01/23 0529 10/31/23 0753 10/31/23 0436 10/30/23 0736 10/30/23 0439 WBC K/??L -- -- -- -- -- -- -- 4.1* -- 4.6 -- 4.5 HGB GM/DL -- -- -- -- -- -- -- 10.3* -- 11.5* -- 10.5* HCT % -- -- -- -- -- -- -- 34.0* -- 38.4* -- 35.6* PLT K/CU MM -- -- -- -- -- -- -- 200 -- 241 -- 231 MG mg/dL -- -- -- 2.3 -- 2.0 -- 2.2 -- 2.3 -- 2.4 NA meq/L -- -- -- 137 -- 136 -- 138 -- 137 -- 138 K meq/L -- -- -- 4.1 -- 4.3 -- 4.4 -- 4.6 -- 4.8 CL meq/L -- -- -- 99* -- 97* -- 100* -- 101* -- 105 CO2 meq/L -- -- -- 32 -- 33* -- 31 -- 31 -- 27 BUN mg/dL -- -- -- 57* -- 56* -- 52* -- 47* -- 43* CREATININE mg/dL -- -- -- 3.60* -- 3.89* -- 3.54* -- 3.38* -- 3.35* EGFR mL/min/1.73m2 -- -- -- 19* -- 17* -- 19* -- 20* -- 21* GLUCOSE mg/dL 186* 153* 110 119* < > 161* < > 118* < > 132* < > 88 CALCIUM mg/dL -- -- -- 8.9 -- 8.9 -- 8.8 -- 9.1 -- 9.1 ALKPHOS U/L -- -- -- -- -- -- -- -- -- -- -- 171* BILITOT mg/dL -- -- -- -- -- -- -- -- -- -- -- 1.1 PROT gm/dL -- -- -- -- -- -- -- -- -- -- -- 6.5 ALT U/L -- -- -- -- -- -- -- -- -- -- -- 15* AST U/L -- -- -- -- -- -- -- -- -- -- -- 34 < > = values in this interval not displayed. Results for orders placed or performed during the hospital encounter of 10/29/23 (from the past 24 hour(s)) Magnesium Status: Normal Collection Time: 11/03/23 5:38 AM Result Value Ref Range Magnesium 2.3 1.5 - 2.4 mg/dL Basic Metabolic Panel Status: Abnormal Collection Time: 11/03/23 5:38 AM Result Value Ref Range Sodium 137 136 - 146 meq/L Potassium 4.1 3.5 - 5.1 meq/L Chloride 99 (L) 102 - 112 meq/L CO2 32 21 - 32 meq/L Anion Gap 10 9 - 20 BUN 57 (H) 7 - 22 mg/dL Creatinine 3.60 (H) 0.70 - 1.30 mg/dL BUN/Creatinine 16 8 - 20 Glucose 119 (H) 74 - 106 mg/dL Calcium 8.9 8.4 - 10.1 mg/dL Osmolality Calc 290.8 eGFR (mL/min/1.73m2) 19 (L) >=60 mL/min/1.73m2 Glucose, Nova Meter Status: None Collection Time: 11/03/23 8:10 AM Result Value Ref Range POC-GLUCOSE 110 70 - 110 mg/dL Loom Operator Apprentice [id number] Glucose, Nova Meter Status: Abnormal Collection Time: 11/03/23 11:23 AM Result Value Ref Range POC-GLUCOSE 153 (H) 70 - 110 mg/dL Loom Operator Apprentice [id number] Glucose, Nova Meter Status: Abnormal Collection Time: 11/03/23 4:53 PM Result Value Ref Range POC-GLUCOSE 186 (H) 70 - 110 mg/dL Loom Operator Apprentice [id number] Radiology: XR chest AP portable Final Result Vascular congestion and interstitial opacity likely related to mild edema. Images reviewed, interpreted, and dictated by Dr. Stephon Cedillo. Transcribed by Brad Hernandez PA-C. XR chest AP portable Final Result Mild cardiomegaly with pulmonary vascular congestion. Images reviewed, interpreted, and dictated by Dr. Stephon Cedillo. Transcribed by Lia Hawk PA-C. ECHO COMPLETE (DOPPLER / COLOR) W OR WO CONTRAST Final Result XR chest AP portable Final Result 1. Cardiomegaly and mild interstitial opacity favored to be chronic. Follow-up better inflated PA and lateral chest radiograph may be of value. Images reviewed, interpreted, and dictated by Stephon Cedillo MD Medications: Scheduled Meds: ??? ammonium lactate topical BID Given at 11/03/23827 ??? aspirin 81 mg oral Daily 81 mg at 11/03/23826 ??? atorvastatin 80 mg oral Every Night 80 mg at 11/02/232027 ??? bumetanide 1 mg oral BID 1 mg at 11/03/23826 ??? [Held by provider] empagliflozin 10 mg oral Daily 10 mg at 10/30/23 08 ??? guaiFENesin 600 mg oral BID 600 mg at 11/03/23825 ??? heparin 5,000 Units subcutaneous Q12H 5,000 Units at 11/03/23826 ??? hydrALAZINE 10 mg oral Q8H 10 mg at 11/03/23 1406 ??? hydrocortisone topical BID Given at 11/03/23827 ??? insulin glargine 10 Units subcutaneous Every Night 10 Units at 11/02/232028 ??? insulin lispro 0-18 Units subcutaneous 4x Daily AC 6 Units at 11/03/23 1701 ??? isosorbide dinitrate 10 mg oral TID 10 mg at 11/03/23 1408 ??? loratadine 10 mg oral Daily 10 mg at 11/03/23826 ??? melatonin 3 mg oral Every Night 3 mg at 11/02/232025 ??? metoprolol succinate 75 mg oral Daily 75 mg at 11/03/23825 ??? nicotine 1 patch transdermal Daily ??? [Held by provider] sacubitriL-valsartan 1 tablet oral BID 1 tablet at 10/30/23 0831 Continuous Infusions: PRN Meds: ??? acetaminophen ??? dextrose ??? glucagon ??? glucose ??? hydrOXYzine ??? ipratropium-albuteroL ??? ondansetron Or ??? ondansetron PF ??? oxyCODONE ??? oxyCODONE Assessment and Plan Primary Diagnosis: Acute decompensated HF Secondary Diagnosis: Principal Problem: Acute on chronic diastolic CHF (congestive heart failure) (HCC) #Acute on chronic systolic decompensated HF: #Anasarca - NYHA III, stage D - EF 20-25% at OSH-->15% at our facility - Continue Toprol 75 mg daily - Continue isordil 10 mg TID - Continue hydralazine 10 mg daily - Lifevest delivered and at bedside - EP and cardiology following - GDMT limited in setting of renal insufficiency - Labs reviewed; Scr improved at 3.6, BUN 57, bicarb 32, Mg 2.4, K 4.1 - Switch to PO diuretics with bumex 1 mg BID - Careful I&O monitoring #KOKO on CKD: - External records from [facility] ; baseline appears to be 2.6-3.0 from earlier 2023 in may - Labs reviewed; Scr improved at noted above #RLE cellulitis: - Baseline chronic venous stasis with superimposed cellulitis - Cultures from OSH with klebsiella and enterobacter - DC CTX, transition to keflex and doxy for additional 5 days #Aortic stenosis: EF 15% on echo with low flow low gradient #Tobacco use disorder: - Continue NRT #LECHUGA Cirrhosis: - Outpatient follow up #Diabetes: - Continue lantus 10 units qhs - Continue SSI Diet: Orders Placed This Encounter Procedures ??? Consistent Carbohydrate Additional Modifiers: Heart Healthy, 2 gram Sodium DVT ppx: SQH Code Status: Full Code Discharge Planning: Barriers to discharge: Pending medical improvement, medically ready today can d/c to [facility] whenever pre-cert and bed ready Expected (tentative) discharge in 2-3 days Expected discharge disposition (home, SNF/Rehab, etc): [facility] Additional discharge needs or delays: TBD Signed: DO [facility] * Tamara Winters RN - 11/03/2023 3:16 PM EDT Discharge Plan Progress Note Patient is agreeable to go to [facility] upon discharge. They will start precert process. He is nearing medical readiness for discharge. Will need transportation. CM to follow. Tamara Winters RN * Gonzalo Eaton, PT - 11/03/2023 2:34 PM EDT Images from the original note were not included. Inpatient Physical Therapy Treatment Patient Name: Robert Hurley Jr. Date of : 1965 Date of Treatment: 11/03/23 Start Time 1419 Stop Time 1434 Session Duration 15 minutes General Visit Type: Treatment Approved by: Nurse Bates Patient Disposition Upon Entry: Supine in bed, Call Light/Pull Cord in reach, All needs met and within reach Patient Verified By: Name and Date of Co-treated by: OT Precautions Weight-Bearing Status: Comment: Pt is Ann MANZO Precautions: Fall risk Isolation Precautions: Standard Lines, tubes, drains, airway: nasal cannula Subjective Subjective: Patient agreeable to physical therapy treatment. Pain No - Patient not reporting pain at this time Cognition Overall cognitive status: WFL Objective Vitals Stable. Functional Mobility Bed Mobility: Rolling Left: modified independent, HOB elevated, use of bed features Rolling Right: modified independent, HOB elevated, use of bed features Transfers Patient declined to attempt this date. Gait Patient declined to attempt this date. Stair Management Patient declined to attempt this date. Wheelchair Mobility Patient declined to attempt this date. AM-PAC Basic Mobility Inpatient Short Form How much difficulty does the patient currently have: Turning over in bed (including adjusting bedclothes, sheets, and blankets)? (1) Total/Unable (not able to do the activity or can only perform the activity using assistive devices or requires assistance from another person, including supervision or cueing for safety) Sitting down on and standing up from a chair with arms (e.g., wheelchair, bedside commode, etc.)? (1) Total/Unable (not able to do the activity or can only perform the activity using assistive devices or requires assistance from another person, including supervision or cueing for safety) Moving from lying on back to sitting on side of bed? (1) Total/Unable (not able to do the activity or can only perform the activity using assistive devices or requires assistance from another person,including supervision or cueing for safety) How much help from another person does the patient currently need: Moving to and from a bed to a chair (including a wheelchair)? (1) Total/Unable (Total assist/dependent) Need to walk in hospital room? (1) Total/Unable (Total assist/dependent) Climbing 3-5 steps with a railing? (1) Total/Unable (Total assist/dependent) Score Raw score=6 t-Scale score=23.55 Standard error=4.57 CMS 0-100%=100.00% MDC=4.72 A raw score of >= 16 is significantly associated with increased odds of discharge to home in addition to consideration made for the patient's cognition and social determinants of health. Balance Unable to assess Activity Tolerance Patient limited with activity/intervention due to fatigue Treatment Pt supine in bed, alert and oriented upon entry. Pt informed of role of physical therapy and importance of PT during hospitalization. Pt verbalized agreeance and understanding. Pt politely declined to participate in transfer training stating he had a long night d/t pain. Pt very fatigued during treatment. Pt educated on UE theraband exercises and LE exercises and verbalized understanding of their importance and reason for doing so. Pt states he has been doing his exercises. Pt educated on pressure relief and practice while in the bed. Pt was left with all needs met and call light within reach prior to dep[arture. UE therapeutic exercise Shoulder abduction, Shoulder flexion, Shoulder horizontal abduction, Tricep extension, Green theraband, All exercises performed for 1 set of 10 reps LE therapeutic exercise quad set, glute set, ankle pumps, short-arc quad, SLR Assessment Pt presents to therapy following Dx of scrotal edema, CHF, and pruritis. Pt presents with L AKA andprosthesis in the room. Pt unable to fit into prosthesis d/t swelling. Pt presents with deficits including limited activity tolerance and impaired functional mobility, impaired balance, and generalized weakness. Pt is at an increased risk of falls d/t deficits. Pt deficits limit his ability to perform all ADLs. Pt would benefit from PT services to address these benefits and increase his functional independence and maximize his QOL and safety. Problems: Decreased core stability, Decreased functional mobility, Decreased gait tolerance, Decreased strength, Decreased activity tolerance, Impaired sitting balance, Impaired standing balance, Impaired dynamic balance, Gait impairment Rehab potential: Good for stated goals Plan Treatment plan: Therapeutic Exercise, Therapeutic Activity, Gait Training, Neuromuscular Re-education, Transfer Training, Balance Training, Stair Training, Strengthening, Home Exercise Program, ROM PT Frequency/Duration: 5x/week for 14 days Recommendations Discharge recommendations: Patient would benefit from 1-2 hours of multidisciplinary therapy per day upon discharge from acute care setting to assist with returning to prior level of functioning. DME recommendations: Unable to make recommendations at this time. Goals Supine to/from sit:??Complete ind?? Gait:??complete 50' with min A x1 with RWx without prosthesis Stair Negotiation:??complete 3 steps with Min A x1 with RWx without prosthesis Transfer:??complete Calista with RWx bed to/from WC Target Date:?11/14/2023 Progress towards goals: progressing Education Patient educated on safety, use of call button, role of physical therapy, plan of care and therapeutic exercise and following, they were able to verbalize understanding. No further questions or concerns stated. Patient Disposition Upon Leaving Supine in bed, Call Light/Pull Cord in reach, All needs met and within reach If this patient discharges prior to next therapy session, this note serves as the patient's discharge summary. Electronically signed by Robby Mejia PT Student - 11/03/23 - 3:04 PM EDT This note written by PT student. PT has reviewed the above documentation and agrees. Electronically signed by Gonzalo Eaton PT, DPT - 11/03/23 - 3:19 PM EST * HENRIETTA Garcia/Ann - 11/03/2023 2:19 PM EDT Images from the original note were not included. Inpatient Occupational Therapy Treatment Note Patient Name: Robert Hurley Jr. Date of : 1965 Date of Treatment: 11/03/23 Start Time: 14:19 Stop Time: 14:34 Session Duration: 15 minutes This patient is a 58 y.o. male admitted on 10/29/2023 with Acute on chronic diastolic CHF (congestiveheart failure) ([facility]) [I50.33]. Past 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: Diagnosis Date ??? CHF (congestive heart failure) (HCC) ??? CKD (chronic kidney disease) ??? COPD (chronic obstructive pulmonary disease) (HCC) ??? Hx of AKA (above knee amputation), left (HCC) No past surgical history on file. General Visit Type:??Treatment Approved by: Nurse??Juliette Patient Disposition Upon Entry:??Supine in bed, Call Light/Pull Cord in reach, HOB >30 degrees Patient Verified By:??Name and Date of ? Precautions Weight-Bearing Status: No Restrictions,??Hx of R AKA/RLE prosthesis in room Precautions: Fall risk?? Isolation Precautions: Standard ?? Subjective Subjective: Pt states that he has just worked with PT and is very tired at this time. ?? Pain No-patient has no complaints of pain ?? Cognition Cognition: Overall cognitive status: WFL ?? Objective Vitals: stable ?? Activity Tolerance Was able to tolerate this activity: client declined transfer/ADLs training but agreed to therapeutic exercises from bed Would be able to tolerate more: unclear Barriers to activity: client declined ?? Treatment Skilled service: Therapist guided client through therapeutic exercises for UEs and core, with emphasis on exercises that he could perform on his own in the room, in between therapy visits. Client instructed to use guard rails to lean forward, and series of exercises at elbow and shoulder level. Client instructed in breathing technique throughout activity. Therapist also guided client to perform pressure relief and work on side to side bed mobility, as well as pulling into long sitting, to increase functional endurance - client able to return demonstrate. Client appears to have shortness of breath after each exercise/activity. ?? Assessment Assessment Therapist engaged client in ADLs and mobility to assess changes in current ability/performance compared to known baseline. Client appears to have the following new challenges: fatigue, shortness of breath, discomfort at effort, which affect this patient's ability to complete basic toileting, self-feeding, simple hygiene/bathing, and basic dressing at the prior level of function and in the prior living environment, in this case: home. In this context, it is recommended to continue inpatient OT services. ? Plan Recommendations Discharge recommendations:??Patient would benefit from 1-2 hours of multidisciplinary therapy per day upon discharge from acute care setting to assist with returning to prior level of functioning. DME recommendations:??Patient would benefit from??hospital bed??at discharge. ?? Treatment Plan:??Adaptive equipment training, ADL training, Co-treat with physical therapy, DME recommendations , Energy conservation instruction, Functional mobility/transfer training, Home program instruction, Other activities to increase UE function, Patient/family/caregiver education, Precaution education/training, Safety training, Strengthening?? OT Frequency/Duration:??3x/week for 14 days ?? Goals Bathing:sponge bath seated??with modified independence. Lower body dressing:??donning and doffing lower body clothing, at bed level??with modified independence. Functional transfers:??stand pivot transfer,??with rolling walker??with modified independence. ?? Target Date:?11/14/2023 Goals were discussed with??patient ?? Education Patient??educated on safety, use of call light, role of occupational therapy, patient's plan of care, ADLs, functional mobility??and following, they were??able to verbalize understanding, nod head tounderstanding. ?? Patient Disposition Upon Leaving Sitting upright in bed, Call Light/Pull Cord in reach, All needs met and within reach, Nursing??at bedside, Side rails up,??tray table in front ?? If this patient discharges prior to next therapy session, this note serves as the patient's discharge summary. ?? Electronically signed by HENRIETTA Garcia/Ann - 11/03/2023 - 4:41 PM EDT * Kacy Montez MD - 11/03/2023 9:01 AM EDT [facility] - Consult Note Subjective: Patient continues to feel lethargic, looks depressed. Health Status: Allergies Penicillin Home Medications: Prior to Admission medications Medication Sig Start Date End Date Taking? Authorizing Provider dapagliflozin propanediol (FARXIGA) 10 mg tablet Take 1 tablet (10 mg total) by mouth daily. Yes Historical Provider, albuterol HFA (VENTOLIN HFA) 90 mcg/actuation inhaler Inhale 1 puff by mouth via inhaler every 6 (six) hours as needed for wheezing. Historical Provider, aspirin 81 MG EC tablet Take 1 tablet (81 mg total) by mouth daily. Historical Provider, atorvastatin (LIPITOR) 80 MG tablet Take 1 tablet (80 mg total) by mouth nightly. Historical Provider, carvediloL (COREG) 12.5 MG tablet Take 1 tablet (12.5 mg total) by mouth 2 (two) times daily with breakfast and dinner. Historical Provider, clopidogreL (PLAVIX) 75 mg tablet Take 1 tablet (75 mg total) by mouth daily Look-alike/Sound-alike medication. Historical Provider, furosemide (LASIX) 40 MG tablet Take 1 tablet (40 mg total) by mouth daily as needed (Edema). Historical Provider, gabapentin (NEURONTIN) 600 MG tablet Take 1 tablet (600 mg total) by mouth 3 (three) times daily. Historical Provider, hydrALAZINE (APRESOLINE) 50 MG tablet Take 1 tablet (50 mg total) by mouth 3 (three) times daily Look-alike/Sound-alike medication. Historical Provider, insulin detemir U-100 (LEVEMIR) 100 unit/mL (3 mL) InPn injection Inject 0.13 mLs (13 Units total) subcutaneously nightly. Historical Provider, isosorbide dinitrate (ISORDIL) 40 MG tablet Take 1 tablet (40 mg total) by mouth 3 (three) times daily. Historical Provider, Past 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: Pt has a past medical history of CHF (congestive heart failure) ([facility]), CKD (chronic kidney disease), COPD (chronic obstructive pulmonary disease) ([facility]), and AKA (above knee amputation), left ([facility]). Surgical History: left heart catheterization Tobacco History Pt reports that he has been smoking cigarettes. He has never used smokeless tobacco. Alcohol History Pt reports that he does not currently use alcohol. Drug Use History Pt reports no history of drug use. Family History Noncontributory OBJECTIVE Vital ranges lat 24 hours Temp: [97.7 ??F (36.5 ??C)-98.4 ??F (36.9 ??C)] 97.7 ??F (36.5 ??C) Pulse: [64-99] 68 Resp: [18-22] 18 BP: (123-139)/(80-92) 139/85 Intake and Output 24 hours: Intake/Output Summary (Last 24 hours) at 11/03/2023 09 Last data filed at 11/03/2023 0600 Gross per 24 hour Intake -- Output 900 ml Net -900 ml Net I&O this admission: Net IO Since Admission: -2,490 mL [11/03/23 0901] PHYSICAL EXAMINATION General: Lethargic, ill-appearing HEENT: atraumatic and normocephalic, no conjunctival injection, no icterus Neck: supple, no JVD Chest/Resp: Chest is clear bilaterally. Cardio: S1 and S2 normal, systolic murmur, l Abdomen/GI: The abdomen is soft without tenderness Extremities: ++ edema, cellulitis in the right leg,, left above-knee amputation. Skin: no rashes Neuro: no focal neurologic deficits grossly AOx3 Inpatient Medications ammonium lactate, , topical, BID aspirin, 81 mg, oral, Daily atorvastatin, 80 mg, oral, Every Night bumetanide, 1 mg, oral, BID cefTRIAXone, 1 g, intravenous, Q24H [Held by provider] empagliflozin, 10 mg, oral, Daily guaiFENesin, 600 mg, oral, BID heparin, 5,000 Units, subcutaneous, Q12H hydrALAZINE, 10 mg, oral, Q8H hydrocortisone, , topical, BID insulin glargine, 10 Units, subcutaneous, Every Night insulin lispro, 0-18 Units, subcutaneous, 4x Daily AC isosorbide dinitrate, 10 mg, oral, TID loratadine, 10 mg, oral, Daily melatonin, 3 mg, oral, Every Night metoprolol succinate, 75 mg, oral, Daily nicotine, 1 patch, transdermal, Daily [Held by provider] sacubitriL-valsartan, 1 tablet, oral, BID Results Review: Labs: WBC Date Value Ref Range Status 11/01/2023 4.1 (L) 4.2 - 9.1 K/??L Final 10/31/2023 4.6 4.2 - 9.1 K/??L Final 10/30/2023 4.5 4.2 - 9.1 K/??L Final Hemoglobin Date Value Ref Range Status 11/01/2023 10.3 (L) 13.7 - 17.5 GM/DL Final 10/31/2023 11.5 (L) 13.7 - 17.5 GM/DL Final 10/30/2023 10.5 (L) 13.7 - 17.5 GM/DL Final Platelets Date Value Ref Range Status 11/01/2023 200 140 - 375 K/CU MM Final 10/31/2023 241 140 - 375 K/CU MM Final 10/30/2023 231 140 - 375 K/CU MM Final Creatinine Date Value Ref Range Status 11/02/2023 3.89 (H) 0.70 - 1.30 mg/dL Final 11/01/2023 3.54 (H) 0.70 - 1.30 mg/dL Final 10/31/2023 3.38 (H) 0.70 - 1.30 mg/dL Final BUN Date Value Ref Range Status 11/02/2023 56 (H) 7 - 22 mg/dL Final 11/01/2023 52 (H) 7 - 22 mg/dL Final 10/31/2023 47 (H) 7 - 22 mg/dL Final Potassium Date Value Ref Range Status 11/02/2023 4.3 3.5 - 5.1 meq/L Final 11/01/2023 4.4 3.5 - 5.1 meq/L Final 10/31/2023 4.6 3.5 - 5.1 meq/L Final Sodium Date Value Ref Range Status 11/02/2023 136 136 - 146 meq/L Final 11/01/2023 138 136 - 146 meq/L Final 10/31/2023 137 136 - 146 meq/L Final Magnesium Date Value Ref Range Status 11/03/2023 2.3 1.5 - 2.4 mg/dL Final 11/02/2023 2.0 1.5 - 2.4 mg/dL Final 11/01/2023 2.2 1.5 - 2.4 mg/dL Final AST Date Value Ref Range Status 10/30/2023 34 5 - 37 U/L Final ALT Date Value Ref Range Status 10/30/2023 15 (L) 16 - 61 U/L Final Alkaline Phosphatase Date Value Ref Range Status 10/30/2023 171 (H) 27 - 136 U/L Final TSH Date Value Ref Range Status 10/29/2023 2.420 0.358 - 3.740 uIU/mL Final Imaging: XR chest AP portable Narrative: PORTABLE CHEST; HISTORY: Shortness of air. COMPARISON: October 30, 2023. FINDINGS: The heart is mildly enlarged. The mediastinum is unremarkable. There is pulmonary vascular congestion. There is no evidence of acute infiltrate or effusion. There is no pneumothorax. Impression: Mild cardiomegaly with pulmonary vascular congestion. Images reviewed, interpreted, and dictated by Dr. Stephon Cedillo. Transcribed by Lia Hawk PA-C. Problem list: Principal Problem: Acute on chronic diastolic CHF (congestive heart failure) ([facility]) Impression and Plan: IMPRESSION: * Acute combined systolic and diastolic heart failure with reduced ejection fraction, stage C, NYHAclass III A. EF 20-25% per echocardiogram at outside facility * NSVT * Atherosclerotic cardiovascular disease with history of PCI * Valvular heart disease history of AR/MR * Hypertension * Dyslipidemia * Diabetes mellitus type 2 * Peripheral vascular disease with history of AKA * LECHUGA cirrhosis * KOKO on CKD stage IV * COPD * History of medical noncompliance Continue IV diuresis Electrophysiology planning for LifeVest and outpatient subcutaneous ICD implantation Heart failure education provided Further recommendation pending response Continue to hold Jardiance and Entresto for now PLAN: 11/03/2023 -Would recommend to continue IV diuresis today, plan to switch to oral tomorrow -For his cardiomyopathy, given his acute on chronic kidney disease, would recommend to continue to hold on any nephrotoxic medication, continue to hold Jardiance and Entresto. -He is not a candidate for spironolactone giving severe kidney disease -Would recommend to continue hydralazine/Isorbid dinitrate at the current dose -Continue metoprolol succinate -Overall poor prognosis 11/02/2023 -Patient continued to be volume overloaded, renal function has worsened, will recommend to continueIV diuresis, appreciate nephrology recommendation. -Continue to hold nephrotoxic medication -Overall poor prognosis 11/01/2023 -Patient still volume overloaded, worsening renal function, would recommend to continue IV diuresis -Appreciate nephrology consult. -Will continue to hold on any nephrotoxic medications at this point. -Further recommendation pending clinical course. 10/31/2023 -Would recommend to continue IV diuresis with Bumex 2 mg twice daily, close monitoring of ins and outs, electrolytes, renal function -Replace potassium and magnesium, keep potassium between 4 and 5, magnesium above 2 -Acute kidney injury, worsening renal function, would recommend to hold on any nephrotoxic medication (hold Jardiance and Entresto). Would recommend nephrology consult -Blood pressure was slight elevated today, adding hydralazine and nitrate for now. -Further recommendation pending clinical course. 10/30/2023 -Patient with acute on chronic combined systolic and diastolic heart failure, EF of 20%, ischemic cardiomyopathy, acute on chronic severe chronic kidney disease stage IV would recommend to continue diuresis with IV Bumex 2 mg twice daily, close monitoring of ins and outs, electrolytes, renal function. -Would recommend nephrology consultation -Would recommend to hold nephrotoxic medication (will hold Entresto and Jardiance at this point) -BB for ICD consideration -Further recommendation pending his clinical course * Monika Pennington MD - 11/02/2023 6:47 PM EDT Subjective History of Present Illness: Patient is very poor historian Robert Shola Xavi Gilbert. is a 58 y.o. male with history of CKD 4 with base creatinine close to ~3, DM,HTN,CHF, left AKA ,difficulty accessing health care resources and keeping follow ups,noncompliance??who presented to [facility] on 10/25 for evaluation of several days of worsening shortness ofbreath and scrotal edema. [facility] as above ,He had echocardiogram done showing EF of 20-25% and was transferred to [facility] for EP evaluation of AICD. ? Yesterday Labs at OSH showed wbc 3.5, hgb 10.5, plt 201, sodium 138, potassium 5.0, creatinine 3.3,mag 2.0. Nephrology was consulted for Renal failure and Volume management 11/01: resting on bed , no new issues Review of Systems Constitutional: Negative. HENT: Negative. Eyes: Negative. Respiratory: Positive for shortness of breath. Cardiovascular: Negative. Gastrointestinal: Negative. Genitourinary: Negative. Skin: Negative. Neurological: Positive for weakness. Psychiatric/Behavioral: Negative. Objective Last Recorded Vitals Blood pressure (!) 134/92, pulse 99, temperature 98.2 ??F (36.8 ??C), temperature source Oral, resp. rate 18, height 1.854 m (6' 1 ), weight 92.8 kg (204 lb 8 oz), SpO2 94 %. Physical Exam Constitutional: Appearance: Normal appearance. HENT: Head: Normocephalic and atraumatic. Nose: Nose normal. Mouth/Throat: Mouth: Mucous membranes are moist. Eyes: Extraocular Movements: Extraocular movements intact. Pupils: Pupils are equal, round, and reactive to light. Cardiovascular: Rate and Rhythm: Normal rate and regular rhythm. Heart sounds: Normal heart sounds. Pulmonary: Breath sounds: Normal breath sounds. Abdominal: General: Abdomen is flat. Palpations: Abdomen is soft. Musculoskeletal: Cervical back: Normal range of motion and neck supple. Skin: General: Skin is warm and dry. Neurological: Mental Status: He is alert and oriented to person, place, and time. Psychiatric: Mood and Affect: Mood normal. Behavior: Behavior normal. Labs: Results for orders placed or performed during the hospital encounter of 10/29/23 (from the past 24 hour(s)) Glucose, Nova Meter Status: Abnormal Collection Time: 11/01/23 7:28 PM Result Value Ref Range POC-GLUCOSE 137 (H) 70 - 110 mg/dL Loom Operator Apprentice [id number] Basic Metabolic Panel Status: Abnormal Collection Time: 11/02/23 4:30 AM Result Value Ref Range Sodium 136 136 - 146 meq/L Potassium 4.3 3.5 - 5.1 meq/L Chloride 97 (L) 102 - 112 meq/L CO2 33 (H) 21 - 32 meq/L Anion Gap 10 9 - 20 BUN 56 (H) 7 - 22 mg/dL Creatinine 3.89 (H) 0.70 - 1.30 mg/dL BUN/Creatinine 14 8 - 20 Glucose 161 (H) 74 - 106 mg/dL Calcium 8.9 8.4 - 10.1 mg/dL Osmolality Calc 290.9 eGFR (mL/min/1.73m2) 17 (L) >=60 mL/min/1.73m2 Magnesium Status: Normal Collection Time: 11/02/23 4:30 AM Result Value Ref Range Magnesium 2.0 1.5 - 2.4 mg/dL Glucose, Nova Meter Status: Abnormal Collection Time: 11/02/23 7:38 AM Result Value Ref Range POC-GLUCOSE 143 (H) 70 - 110 mg/dL Loom Operator Apprentice [id number] Glucose, Nova Meter Status: Abnormal Collection Time: 11/02/23 12:14 PM Result Value Ref Range POC-GLUCOSE 155 (H) 70 - 110 mg/dL Loom Operator Apprentice [id number] Glucose, Nova Meter Status: Abnormal Collection Time: 11/02/23 4:40 PM Result Value Ref Range POC-GLUCOSE 181 (H) 70 - 110 mg/dL Loom Operator Apprentice [id number] XR chest AP portable Narrative: PORTABLE CHEST; HISTORY: Shortness of air. COMPARISON: October 30, 2023. FINDINGS: The heart is mildly enlarged. The mediastinum is unremarkable. There is pulmonary vascular congestion. There is no evidence of acute infiltrate or effusion. There is no pneumothorax. Impression: Mild cardiomegaly with pulmonary vascular congestion. Images reviewed, interpreted, and dictated by Dr. Stephon Cedillo. Transcribed by Lia Hawk PA-C. Assessment 1. Acute on chronic CKD stage IV, secondary to cardiorenal syndrome type I 2. Chronic kidney disease stage IV secondary to type II cardiorenal syndrome/hypertensive nephrosclerosis and diabetic nephropathy Repeated Echo with EF:~10-15 % 3. Volume overload 4. Anemia 5. Acute combined systolic and diastolic exacerbation of CHF with repeated ejection fraction of 10-15% 6. Type 2 diabetes 7. Peripheral vascular disease/coronary artery disease 8. Hypertension 9. History of COPD Plan -Optimization of cardiac function as per cardiology, patient is on cardioprotective medications -Continue with loop diuretics , will decrease the dose of Bumex to 1 mg Twice daily for now and this can be adjusted as needed depending on the urine output -Creatinine 3.89 somewhat worse,electrolytes are okay -Avoid nephrotoxins, keep MAP above 65 -Strict intake and output -Renally dose medications -No need for CONSTRUCTION ENGINEERING MANAGER at present time,high risk of deterioration and needing CONSTRUCTION ENGINEERING MANAGER -Thanks for consultation for along with you ?? [facility] [address] [place] [place], [place], [address] Phone #[phone] Fax #[phone] High complex case * Antoinette Jaeger OTR/Ann - 11/02/2023 3:30 PM EDT Images from the original note were not included. Inpatient Occupational Therapy Treatment Note Patient Name: Robert Hurley Jr. Date of : 1965 Date of Treatment: 11/02/23 Start Time: 15:35 Stop Time: 15:47 Session Duration: 12 minutes This patient is a 58 y.o. male admitted on 10/29/2023 with Acute on chronic diastolic CHF (congestiveheart failure) ([facility]) [I50.33]. Past 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: Diagnosis Date ??? CHF (congestive heart failure) ([facility]) ??? CKD (chronic kidney disease) ??? COPD (chronic obstructive pulmonary disease) ([facility]) ??? Hx of AKA (above knee amputation), left ([facility]) No past surgical history on file. General Visit Type: Treatment Approved by: Nurse Segovia Patient Disposition Upon Entry: Supine in bed, Call Light/Pull Cord in reach, HOB >30 degrees Patient Verified By: Name and Date of ?? Precautions Weight-Bearing Status: No Restrictions, Hx of R AKA/RLE prosthesis in room Precautions: Fall risk Isolation Precautions: Standard Subjective Subjective: Pt states that he has just worked with PT and is very tired at this time. Pain No-patient has no complaints of pain Cognition Cognition: Overall cognitive status: WFL Objective Vitals: stable Activity Tolerance Was able to tolerate this activity: client declined transfer/ADLs training but agreed to therapeutic exercises from bed Would be able to tolerate more: unclear Barriers to activity: client declined Treatment Skilled service: Therapist guided client through therapeutic exercises for UEs and core, with emphasis on exercises that he could perform on his own in the room, in between therapy visits. Client instructed to use guard rails to lean forward, and series of exercises at elbow and shoulder level. Client instructed in breathing technique throughout activity. Assessment Assessment Therapist engaged client in ADLs and mobility to assess changes in current ability/performance compared to known baseline. Client appears to have the following new challenges: fatigue, shortness of breath, discomfort at effort, which affect this patient's ability to complete basic toileting, self-feeding, simple hygiene/bathing, and basic dressing at the prior level of function and in the prior living environment, in this case: home. In this context, it is recommended to continue inpatient OT services. Plan Recommendations Discharge recommendations: Patient would benefit from 1-2 hours of multidisciplinary therapy per day upon discharge from acute care setting to assist with returning to prior level of functioning. DME recommendations: Patient would benefit from hospital bed at discharge. ?? Treatment Plan: Adaptive equipment training, ADL training, Co-treat with physical therapy, DME recommendations , Energy conservation instruction, Functional mobility/transfer training, Home program instruction, Other activities to increase UE function, Patient/family/caregiver education, Precautioneducation/training, Safety training, Strengthening OT Frequency/Duration: 3x/week for 14 days ?? Goals Bathing:sponge bath seated with modified independence. Lower body dressing: donning and doffing lower body clothing, at bed level with modified independence. Functional transfers: stand pivot transfer, with rolling walker with modified independence. ?? Target Date: 11/14/2023 Goals were discussed with patient ?? Education Patient educated on safety, use of call light, role of occupational therapy, patient's plan of care, ADLs, functional mobility and following, they were able to verbalize understanding, nod head to understanding. ?? Patient Disposition Upon Leaving Sitting upright in bed, Call Light/Pull Cord in reach, All needs met and within reach, Nursing at bedside, Side rails up,??tray table in front ?? If this patient discharges prior to next therapy session, this note serves as the patient's discharge summary. Electronically signed by LIZZY Garcia - 11/02/2023 - 4:14 PM EDT * Tamara Winters RN - 11/02/2023 3:24 PM EDT Discharge Plan Progress Note Met with patient today to discuss DCP. He is agreeable to sending SNF referrals but doesn't commit to going, states will see how I feel in few days . Referrals sent within 25 miles of patient's home. [facility] is patient's first choice. Will need transportation upon discharge. CM to follow. Tamara Winters RN * Harish Shannon, PT - 11/02/2023 3:13 PM EDT Images from the original note were not included. Inpatient Physical Therapy Treatment Patient Name: Robert Hurley Jr. Date of : 1965 Date of Treatment: 11/02/23 Start Time 1513 Stop Time 1525 Session Duration 12 minutes General Visit Type: Treatment Approved by: Nurse Segovia Patient Disposition Upon Entry: Supine in bed, Call Light/Pull Cord in reach, HOB >30 degrees Patient Verified By: Name and Date of Precautions Weight-Bearing Status: No Restrictions, Hx of R AKA/RLE prosthesis in room Precautions: Fall risk Isolation Precautions: Standard Subjective Subjective: Pt agreeable to therapeutic ex only I am so tired today Pain No s/s of increased physical distress Cognition Cooperative with therapeutic ex attempt Objective Functional Mobility Bed Mobility: Patient declined to attempt this date. Transfers Patient declined to attempt this date. Gait Not assessed this date due to inability to fit into prosthesis d/t swelling. Stair Management Not assessed this date due to inability to fit into prosthesis d/t swelling. Wheelchair Mobility Not assessed, patient ambulatory. AM-PAC Basic Mobility Inpatient Short Form How much difficulty does the patient currently have: Turning over in bed (including adjusting bedclothes, sheets, and blankets)? (1) Total/Unable (not able to do the activity or can only perform the activity using assistive devices or requires assistance from another person, including supervision or cueing for safety) Sitting down on and standing up from a chair with arms (e.g., wheelchair, bedside commode, etc.)? (1) Total/Unable (not able to do the activity or can only perform the activity using assistive devices or requires assistance from another person, including supervision or cueing for safety) Moving from lying on back to sitting on side of bed? (1) Total/Unable (not able to do the activity or can only perform the activity using assistive devices or requires assistance from another person,including supervision or cueing for safety) How much help from another person does the patient currently need: Moving to and from a bed to a chair (including a wheelchair)? (1) Total/Unable (Total assist/dependent) Need to walk in hospital room? (1) Total/Unable (Total assist/dependent) Climbing 3-5 steps with a railing? (1) Total/Unable (Total assist/dependent) Score Raw score=6 t-Scale score=23.55 Standard error=4.57 CMS 0-100%=100.00% MDC=4.72 A raw score of >= 16 is significantly associated with increased odds of discharge to home in addition to consideration made for the patient's cognition and social determinants of health. Balance Unable to assess Activity Tolerance Patient limited with activity/intervention due to fatigue, deconditioning, weakness and anxiety Treatment Attempted several times for importance of mobility and reviewed therapy note from 10/31 and attempts for sit to stand transfer with RWx maxA x2. However, pt declined mobility due to fatigue/weakness. With encouragement, pt cooperative with therapeutic ex including BLE RLE AP, HS and BLE SLR and hip ABD Assessment Patient demonstrates impairments and functional limitations of weakness, limited endurance, decreased mobility and impaired safety. Patient able to demonstrate therapeutic ex this session but declined mobility at this time. Patient would benefit from continued skilled PT services due to cooperationto improve functional mobility, activity tolerance, pain management to return to PLOF. Plan Treatment plan: Therapeutic Exercise, Therapeutic Activity, Gait Training, Neuromuscular Re-education, Transfer Training, Balance Training, Stair Training, Strengthening, Home Exercise Program PT Frequency/Duration: 5x/week for 14 days ?? Recommendations Discharge recommendations: Patient would benefit from 1-2 hours of multidisciplinary therapy per day upon discharge from acute care setting to assist with returning to prior level of functioning. ?? DME recommendations: Unable to make recommendations at this time. ?? Goals Supine to/from sit:??Complete ind?? Gait:??complete 50' with min A x1 with RWx without prosthesis Stair Negotiation:??complete 3 steps with Min A x1 with RWx without prosthesis Transfer:??complete Calista with RWx bed to/from WC Target Date:?11/14/2023 Progress towards goals: progressing ?? Education Patient educated on safety, use of call button, role of physical therapy, plan of care, therapeuticexercise, HEP packet and risk for falls and following, they were able to verbalize understanding. No further questions or concerns stated. ?? Patient Disposition Upon Leaving Patient supine with HOB elevated, Call Light/Pull Cord in reach, All needs met and within reach ?? If this patient discharges prior to next therapy session, this note serves as the patient's discharge summary. Electronically signed by Harish Shannon PT - 11/02/23 - 3:56 PM EDT * Gilbert Dailey MD - 11/02/2023 1:59 PM EDT Store Operations Manager: Chief Complaint: No chief complaint on file. Subjective: Reports that scrotal swelling has improved Social History: Social History Socioeconomic History ??? Marital status: Unknown Spouse name: Not on file ??? Number of children: Not on file ??? Years of education: Not on file ??? Highest education level: Not on file Occupational History ??? Not on file Tobacco Use ??? Smoking status: Every Day Types: Cigarettes ??? Smokeless tobacco: Never Substance and Sexual Activity ??? Alcohol use: Not Currently ??? Drug use: Never ??? Sexual activity: Not on file Other Topics Concern ??? Not on file Social History Narrative ??? Not on file Social Determinants of Health Financial Resource Strain: High Risk (10/29/2023) Financial Resource Strain ??? : 1 Food Insecurity: Food Insecurity Present (10/29/2023) Food Insecurity ??? : 1 ??? : 0 Transportation Needs: Unmet Transportation Needs (10/29/2023) Transportation Needs ??? : 1 Physical Activity: Inactive (10/29/2023) Physical Activity ??? : 0 Stress: No Stress Concern Present (10/29/2023) Stress ??? : 1 Social Connections: Low Risk (10/29/2023) Family and Community Support ??? : 0 ??? : 0 Intimate Partner Violence: Not on file Housing Stability: Low Risk (10/29/2023) Housing Stability ??? : 0 ??? : 0 Living Arrangements: Alone Type of Residence: Private residence Family History: No family history on file. Medications: No current facility-administered medications on file prior to encounter. Current Outpatient Medications on File Prior to Encounter Medication Sig Dispense Refill ??? albuterol HFA (VENTOLIN HFA) 90 mcg/actuation inhaler Inhale 1 puff by mouth via inhaler every 6 (six) hours as needed for wheezing. ??? aspirin 81 MG EC tablet Take 1 tablet (81 mg total) by mouth daily. ??? atorvastatin (LIPITOR) 80 MG tablet Take 1 tablet (80 mg total) by mouth nightly. ??? carvediloL (COREG) 12.5 MG tablet Take 1 tablet (12.5 mg total) by mouth 2 (two) times daily with breakfast and dinner. ??? furosemide (LASIX) 40 MG tablet Take 1 tablet (40 mg total) by mouth daily as needed (Edema). ??? gabapentin (NEURONTIN) 600 MG tablet Take 1 tablet (600 mg total) by mouth 3 (three) times daily. ??? hydrALAZINE (APRESOLINE) 50 MG tablet Take 1 tablet (50 mg total) by mouth 3 (three) times daily Look-alike/Sound-alike medication. ??? insulin detemir U-100 (LEVEMIR) 100 unit/mL (3 mL) InPn injection Inject 0.13 mLs (13 Units total) subcutaneously nightly. ??? isosorbide dinitrate (ISORDIL) 40 MG tablet Take 1 tablet (40 mg total) by mouth 3 (three) times daily. Review of Systems: Pertinent items are noted in HPI. Physical Exam: Physical Exam Constitutional: General: He is not in acute distress. Appearance: Normal appearance. He is not toxic-appearing or diaphoretic. HENT: Head: Normocephalic and atraumatic. Nose: Nose normal. Mouth/Throat: Mouth: Mucous membranes are moist. Pharynx: Oropharynx is clear. Eyes: Extraocular Movements: Extraocular movements intact. Conjunctiva/sclera: Conjunctivae normal. Pupils: Pupils are equal, round, and reactive to light. Cardiovascular: Rate and Rhythm: Normal rate and regular rhythm. Heart sounds: Normal heart sounds. No murmur heard. No gallop. Pulmonary: Effort: Pulmonary effort is normal. No respiratory distress. Breath sounds: Normal breath sounds. Abdominal: General: Abdomen is flat. Bowel sounds are normal. There is no distension. Palpations: Abdomen is soft. Tenderness: There is no abdominal tenderness. There is no guarding. Musculoskeletal: General: Deformity present. No swelling. Normal range of motion. Cervical back: Normal range of motion and neck supple. Left lower leg: No edema. Comments: Left BKA Skin: General: Skin is warm and dry. Coloration: Skin is not pale. Findings: No erythema. Neurological: General: No focal deficit present. Mental Status: He is alert and oriented to person, place, and time. Cranial Nerves: No cranial nerve deficit. Motor: No weakness. Psychiatric: Mood and Affect: Mood normal. Behavior: Behavior normal. Judgment: Judgment normal. Vitals: Hemodynamic parameters reviewed for last 24 hours. Blood pressure 131/83, pulse 64, temperature 97.9 ??F (36.6 ??C), temperature source Oral, resp. rate 18, height 1.854 m (6' 1 ), weight 92.8 kg (204 lb 8 oz), SpO2 100 %. Assessment and Plan: ?? *Acute on chronic systolic/diastolic CHF / NYHA class III stage D For volume overload with anasarca on admission LVEF 20 to 25% per OSH echo, 15% reported here as per ECHO 10/29/2023 *Scrotal edema *ASCVD History of prior PCI History of non-STEMI *VHD With aortic regurgitation and mitral regurgitation (echo pending) *Hypertension *Hyperlipidemia *Diabetes mellitus type 2 Insulin-dependent *Peripheral vascular disease History of left lvxvo-nap-tcsm amputation (uses a prosthesis) *LECHUGA cirrhosis *COPD With acute on chronic hypoxemic respiratory failure *Noncompliance *KOKO on CKD stage IV *Cellulitis of the right calf Skin culture obtained on 730 showed Klebsiella and Enterobacter species *Low flow low gradient ?? PLAN: 11/02/2023 Labs and telemetry reviewed, life vest ordered. Continue Diuresis. Management of cellulitis as per primary team. 11/01/2023 Labs and telemetry reviewed, management of cellulitis as per primary team, will order LifeVest and schedule subcutaneous ICD implant as an outpatient Case discussed with who is the referring physician. 10/31/2023 Labs and tele reviewed, NSVT last night, continue diuresis with monitoring of renal function. Discussed with , patient is not sure what medications he takes, he needs to be on GDMT (BB at least given his renal failure) and needs to show compliance, Also given cellulitis it would be most appropriate at this point to prescribe life vest and have him follow up as outpatient. 10/30/2023 Patient has been placed on GDMT, limitations of increasing and adding guideline directed medical therapy is his renal failure, will increase Toprol-XL dose. Echocardiogram here showed ejection fraction of 15% low-flow low gradient aortic stenosis, patient will require an ICD for primary prevention of sudden cardiac however given recent skin cultures that showed Klebsiella and Enterobacter species, will hold off until we are sure there is no ongoing infection, I examined his right leg which showed no open wounds. I will consider him for subcutaneous ICD once cellulitis/infection is addressed. Continue diuresis and management of congestive heart failure as per cardiology team, nephrology was consulted. 10/29/2023 Telemetry reviewed. Will obtain twelve-lead EKG. We will obtain complete echocardiogram. Agree with initiation of GDMT. Agree with diuresis. We will consult cardiology for assistance with CHF management. We will consult nephrology for assistance with KOKO on CKD. Monitor and replace electrolytes as needed to keep potassium level greater than 4.0 and magnesium greater than 2.0 at all times. BMP and magnesium level pending. Will check TSH and free T4. Discussed wit . Further recommendations pending testing results, clinical course, and response to therapy. Signed: Gilbert Dailey MD 11/02/2023 8:27 PM * Bing Sebastian DO - 11/02/2023 10:01 AM EDT [facility] [place] [facility] Progress Note Patient: Robert Hurley Jr. Subjective Chief Complaint / Reason for Follow-Up Robert Hurley Jr. is a 58 y.o. male on hospital day 4. The principal reason for today's follow up visit is Acute on chronic diastolic CHF (congestive heart failure) (HCC). Interval History Patient seen and evaluated this morning No acute events overnight Hemodynamics and labs for past 24 hours reviewed Resting comfortably on 2 L nasal cannula States his shortness of breath is improving Per CM, does not want placement or her to send referrals for SNF at this time Review of Systems Gen: negative for fevers or chills CVS: negative for palpitations, chest pain, lower extremity edema Respiratory: negative for cough or dyspnea Gastrointestinal: negative for nausea, vomiting, diarrhea, constipation Skin: negative for rash or erythema Objective Vitals: Temp: [97.7 ??F (36.5 ??C)-98.6 ??F (37 ??C)] 98.6 ??F (37 ??C) Pulse: [64-94] 64 Resp: [18] 18 BP: (119-136)/(69-90) 131/85 Intake/Output: Intake/Output Summary (Last 24 hours) at 11/02/2023 1003 Last data filed at 11/02/2023 0900 Gross per 24 hour Intake 240 ml Output 650 ml Net -410 ml Physical exam: Gen: Chronically ill appearing disheveled male resting comfortably, no acute distress HEENT: PERRL, EOMI CVS: RRR, no murmurs, no edema Lung: Bibasilar crackles, no increased WOB, nasal cannula in place Abd: Soft non-distended Skin: Chronic venous stasis in RLE, extensive, onychomycosis RLE MSK: Left AKA Labs: Recent Labs Lab(s) Units 11/02/23 0738 11/02/23 0430 11/01/23 1928 11/01/23 0744 11/01/23 0529 10/31/23 0753 10/31/23 0436 10/30/23 0736 10/30/23 0439 WBC K/??L -- -- -- -- 4.1* -- 4.6 -- 4.5 HGB GM/DL -- -- -- -- 10.3* -- 11.5* -- 10.5* HCT % -- -- -- -- 34.0* -- 38.4* -- 35.6* PLT K/CU MM -- -- -- -- 200 -- 241 -- 231 MG mg/dL -- 2.0 -- -- 2.2 -- 2.3 -- 2.4 NA meq/L -- 136 -- -- 138 -- 137 -- 138 K meq/L -- 4.3 -- -- 4.4 -- 4.6 -- 4.8 CL meq/L -- 97* -- -- 100* -- 101* -- 105 CO2 meq/L -- 33* -- -- 31 -- 31 -- 27 BUN mg/dL -- 56* -- -- 52* -- 47* -- 43* CREATININE mg/dL -- 3.89* -- -- 3.54* -- 3.38* -- 3.35* EGFR mL/min/1.73m2 -- 17* -- -- 19* -- 20* -- 21* GLUCOSE mg/dL 143* 161* 137* < > 118* < > 132* < > 88 CALCIUM mg/dL -- 8.9 -- -- 8.8 -- 9.1 -- 9.1 ALKPHOS U/L -- -- -- -- -- -- -- -- 171* BILITOT mg/dL -- -- -- -- -- -- -- -- 1.1 PROT gm/dL -- -- -- -- -- -- -- -- 6.5 ALT U/L -- -- -- -- -- -- -- -- 15* AST U/L -- -- -- -- -- -- -- -- 34 < > = values in this interval not displayed. Results for orders placed or performed during the hospital encounter of 10/29/23 (from the past 24 hour(s)) Glucose, Nova Meter Status: Abnormal Collection Time: 11/01/23 11:49 AM Result Value Ref Range POC-GLUCOSE 147 (H) 70 - 110 mg/dL [employer]ice [id number] Glucose, Nova Meter Status: Abnormal Collection Time: 11/01/23 3:59 PM Result Value Ref Range POC-GLUCOSE 155 (H) 70 - 110 mg/dL [employer]ice [id number] Glucose, Nova Meter Status: Abnormal Collection Time: 11/01/23 7:28 PM Result Value Ref Range POC-GLUCOSE 137 (H) 70 - 110 mg/dL [employer] App[employer]ice [id number] Basic Metabolic Panel Status: Abnormal Collection Time: 11/02/23 4:30 AM Result Value Ref Range Sodium 136 136 - 146 meq/L Potassium 4.3 3.5 - 5.1 meq/L Chloride 97 (L) 102 - 112 meq/L CO2 33 (H) 21 - 32 meq/L Anion Gap 10 9 - 20 BUN 56 (H) 7 - 22 mg/dL Creatinine 3.89 (H) 0.70 - 1.30 mg/dL BUN/Creatinine 14 8 - 20 Glucose 161 (H) 74 - 106 mg/dL Calcium 8.9 8.4 - 10.1 mg/dL Osmolality Calc 290.9 eGFR (mL/min/1.73m2) 17 (L) >=60 mL/min/1.73m2 Magnesium Status: Normal Collection Time: 11/02/23 4:30 AM Result Value Ref Range Magnesium 2.0 1.5 - 2.4 mg/dL Glucose, Nova Meter Status: Abnormal Collection Time: 11/02/23 7:38 AM Result Value Ref Range POC-GLUCOSE 143 (H) 70 - 110 mg/dL [employer] App[employer]ice [id number] Radiology: ECHO COMPLETE (DOPPLER / COLOR) W OR WO CONTRAST Final Result XR chest AP portable Final Result 1. Cardiomegaly and mild interstitial opacity favored to be chronic. Follow-up better inflated PA and lateral chest radiograph may be of value. Images reviewed, interpreted, and dictated by Stephon Cedillo MD Medications: Scheduled Meds: ??? ammonium lactate topical BID Given at 11/02/23818 ??? aspirin 81 mg oral Daily 81 mg at 11/02/23817 ??? atorvastatin 80 mg oral Every Night 80 mg at 11/01/232228 ??? bumetanide 2 mg intravenous BID 2 mg at 11/02/23 08 ??? cefTRIAXone 1 g intravenous Q24H IVPB Stopped at 11/01/23 1750 ??? [Held by provider] empagliflozin 10 mg oral Daily 10 mg at 10/30/23 0831 ??? guaiFENesin 600 mg oral BID 600 mg at 11/02/23 08 ??? heparin 5,000 Units subcutaneous Q12H 5,000 Units at 11/02/23 0817 ??? hydrALAZINE 10 mg oral Q8H 10 mg at 11/02/23 0546 ??? hydrocortisone topical BID Given at 11/02/23818 ??? insulin glargine 10 Units subcutaneous Every Night 10 Units at 11/01/232228 ??? insulin lispro 0-18 Units subcutaneous 4x Daily AC 3 Units at 11/02/23 0816 ??? isosorbide dinitrate 10 mg oral TID 10 mg at 11/02/23 0818 ??? loratadine 10 mg oral Daily 10 mg at 11/02/23 0818 ??? melatonin 3 mg oral Every Night 3 mg at 11/01/239 ??? metoprolol succinate 75 mg oral Daily 75 mg at 11/02/23 0818 ??? nicotine 1 patch transdermal Daily ??? [Held by provider] sacubitriL-valsartan 1 tablet oral BID 1 tablet at 10/30/23 0831 Continuous Infusions: PRN Meds: ??? acetaminophen ??? dextrose ??? glucagon ??? glucose ??? hydrOXYzine ??? ipratropium-albuteroL ??? ondansetron Or ??? ondansetron PF ??? oxyCODONE ??? oxyCODONE Assessment and Plan Primary Diagnosis: Acute decompensated HF Secondary Diagnosis: Principal Problem: Acute on chronic diastolic CHF (congestive heart failure) (HCC) #Acute on chronic systolic decompensated HF: #Anasarca - NYHA III, stage D - EF 20-25% at OSH-->15% at our facility - Continue Toprol 75 mg daily - Continue isordil 10 mg TID - Continue hydralazine 10 mg daily - Will need lifevest, discussed with CM - EP and cardiology following - GDMT limited in setting of renal insufficiency - Labs reviewed; Bicarb 33, Scr 3.89, BUN 56, Mg 2.0, K 4.3 - Continue IV diuretics, monitor for drug toxicity and adverse side effects with careful electrolyte monitoring and renal insuffiency - Careful I&O monitoring; per documentation net negative 1590 cc thus far during hospital stay #KOKO on CKD: - External records from [facility] reviewed; baseline appears to be 2.6-3.0 from earlier 2023 in may - Labs reviewed; Scr today 3.89, BUN 56 #RLE cellulitis: - Baseline chronic venous stasis with superimposed cellulitis - Cultures from OSH with klebsiella and enterobacter - Continue IV ceftriaxone #Aortic stenosis: EF 15% on echo with low flow low gradient #Tobacco use disorder: - Continue NRT #LECHUGA Cirrhosis: - Outpatient follow up #Diabetes: - Continue lantus 10 units qhs - Continue SSI Diet: Orders Placed This Encounter Procedures ??? Consistent Carbohydrate Additional Modifiers: Heart Healthy, 2 gram Sodium DVT ppx: SQH Code Status: Full Code Discharge Planning: Barriers to discharge: Pending medical improvement Expected (tentative) discharge in 2-3 days Expected discharge disposition (home, SNF/Rehab, etc): Home Additional discharge needs or delays: TBD Signed: DO [facility] * Kacy Montez MD - 11/02/2023 8:50 AM EDT [facility] - Consult Note Subjective: Patient looks lethargic, ill-appearing, no change in his shortness of breath. Denied any chest pain. Health Status: Allergies Penicillin Home Medications: Prior to Admission medications Medication Sig Start Date End Date Taking? Authorizing Provider dapagliflozin propanediol (FARXIGA) 10 mg tablet Take 1 tablet (10 mg total) by mouth daily. Yes Historical Provider, albuterol HFA (VENTOLIN HFA) 90 mcg/actuation inhaler Inhale 1 puff by mouth via inhaler every 6 (six) hours as needed for wheezing. Historical Provider, aspirin 81 MG EC tablet Take 1 tablet (81 mg total) by mouth daily. Historical Provider, atorvastatin (LIPITOR) 80 MG tablet Take 1 tablet (80 mg total) by mouth nightly. Historical Provider, carvediloL (COREG) 12.5 MG tablet Take 1 tablet (12.5 mg total) by mouth 2 (two) times daily with breakfast and dinner. Historical Provider, clopidogreL (PLAVIX) 75 mg tablet Take 1 tablet (75 mg total) by mouth daily Look-alike/Sound-alike medication. Historical Provider, furosemide (LASIX) 40 MG tablet Take 1 tablet (40 mg total) by mouth daily as needed (Edema). Historical Provider, gabapentin (NEURONTIN) 600 MG tablet Take 1 tablet (600 mg total) by mouth 3 (three) times daily. Historical Provider, hydrALAZINE (APRESOLINE) 50 MG tablet Take 1 tablet (50 mg total) by mouth 3 (three) times daily Look-alike/Sound-alike medication. Historical Provider, insulin detemir U-100 (LEVEMIR) 100 unit/mL (3 mL) InPn injection Inject 0.13 mLs (13 Units total) subcutaneously nightly. Historical Provider, isosorbide dinitrate (ISORDIL) 40 MG tablet Take 1 tablet (40 mg total) by mouth 3 (three) times daily. Historical Provider, Past 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: Pt has a past medical history of CHF (congestive heart failure) ([facility]), CKD (chronic kidney disease), COPD (chronic obstructive pulmonary disease) ([facility]), and AKA (above knee amputation), left ([facility]). Surgical History: left heart catheterization Tobacco History Pt reports that he has been smoking cigarettes. He has never used smokeless tobacco. Alcohol History Pt reports that he does not currently use alcohol. Drug Use History Pt reports no history of drug use. Family History Noncontributory OBJECTIVE Vital ranges lat 24 hours Temp: [97.7 ??F (36.5 ??C)-98.4 ??F (36.9 ??C)] 97.7 ??F (36.5 ??C) Pulse: [66-94] 66 Resp: [18] 18 BP: (119-136)/(69-90) 127/88 Intake and Output 24 hours: Intake/Output Summary (Last 24 hours) at 11/02/2023 0850 Last data filed at 11/01/2023 1200 Gross per 24 hour Intake 240 ml Output 650 ml Net -410 ml Net I&O this admission: Net IO Since Admission: -1,830 mL [11/02/23 0850] PHYSICAL EXAMINATION General: Lethargic, ill-appearing HEENT: atraumatic and normocephalic, no conjunctival injection, no icterus Neck: supple, no JVD Chest/Resp: Chest is clear bilaterally. Cardio: S1 and S2 normal, systolic murmur, l Abdomen/GI: The abdomen is soft without tenderness Extremities: ++ edema, left above-knee amputation. Skin: no rashes Neuro: no focal neurologic deficits grossly AOx3 Inpatient Medications ammonium lactate, , topical, BID aspirin, 81 mg, oral, Daily atorvastatin, 80 mg, oral, Every Night bumetanide, 2 mg, intravenous, BID cefTRIAXone, 1 g, intravenous, Q24H [Held by provider] empagliflozin, 10 mg, oral, Daily guaiFENesin, 600 mg, oral, BID heparin, 5,000 Units, subcutaneous, Q12H hydrALAZINE, 10 mg, oral, Q8H hydrocortisone, , topical, BID insulin glargine, 10 Units, subcutaneous, Every Night insulin lispro, 0-18 Units, subcutaneous, 4x Daily AC isosorbide dinitrate, 10 mg, oral, TID loratadine, 10 mg, oral, Daily melatonin, 3 mg, oral, Every Night metoprolol succinate, 75 mg, oral, Daily nicotine, 1 patch, transdermal, Daily [Held by provider] sacubitriL-valsartan, 1 tablet, oral, BID Results Review: Labs: WBC Date Value Ref Range Status 11/01/2023 4.1 (L) 4.2 - 9.1 K/??L Final 10/31/2023 4.6 4.2 - 9.1 K/??L Final 10/30/2023 4.5 4.2 - 9.1 K/??L Final Hemoglobin Date Value Ref Range Status 11/01/2023 10.3 (L) 13.7 - 17.5 GM/DL Final 10/31/2023 11.5 (L) 13.7 - 17.5 GM/DL Final 10/30/2023 10.5 (L) 13.7 - 17.5 GM/DL Final Platelets Date Value Ref Range Status 11/01/2023 200 140 - 375 K/CU MM Final 10/31/2023 241 140 - 375 K/CU MM Final 10/30/2023 231 140 - 375 K/CU MM Final Creatinine Date Value Ref Range Status 11/02/2023 3.89 (H) 0.70 - 1.30 mg/dL Final 11/01/2023 3.54 (H) 0.70 - 1.30 mg/dL Final 10/31/2023 3.38 (H) 0.70 - 1.30 mg/dL Final BUN Date Value Ref Range Status 11/02/2023 56 (H) 7 - 22 mg/dL Final 11/01/2023 52 (H) 7 - 22 mg/dL Final 10/31/2023 47 (H) 7 - 22 mg/dL Final Potassium Date Value Ref Range Status 11/02/2023 4.3 3.5 - 5.1 meq/L Final 11/01/2023 4.4 3.5 - 5.1 meq/L Final 10/31/2023 4.6 3.5 - 5.1 meq/L Final Sodium Date Value Ref Range Status 11/02/2023 136 136 - 146 meq/L Final 11/01/2023 138 136 - 146 meq/L Final 10/31/2023 137 136 - 146 meq/L Final Magnesium Date Value Ref Range Status 11/02/2023 2.0 1.5 - 2.4 mg/dL Final 11/01/2023 2.2 1.5 - 2.4 mg/dL Final 10/31/2023 2.3 1.5 - 2.4 mg/dL Final AST Date Value Ref Range Status 10/30/2023 34 5 - 37 U/L Final ALT Date Value Ref Range Status 10/30/2023 15 (L) 16 - 61 U/L Final Alkaline Phosphatase Date Value Ref Range Status 10/30/2023 171 (H) 27 - 136 U/L Final TSH Date Value Ref Range Status 10/29/2023 2.420 0.358 - 3.740 uIU/mL Final Imaging: XR chest AP portable Narrative: Name: ROBERT HURLEY JR. : 1965 CHEST SINGLE VIEW COMPARISON: Chest from 12 April 2015 HISTORY: Shortness of breath. FINDINGS: Cardiac silhouette is moderately enlarged. Lungs are underinflated. Mild interstitial opacities seen in both lungs, probably chronic. Impression: 1. Cardiomegaly and mild interstitial opacity favored to be chronic. Follow-up better inflated PA and lateral chest radiograph may be of value. 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 Patient Status: Routine [facility] Adequate [facility] History/Tech Notes: Indication: shortness of breath R06.02 Impression: ######################################## Normal sized left ventricle. Moderate left ventricular hypertrophy. Visually estimated ejection fraction 15% +/- 5%. Abnormal left ventricular systolic function; abnormal systolic strain pattern. Increased left atrial pressure (Grade II diastolic dysfunction). Dilated right ventricle. Abnormal TAPSE; abnormal right ventricular function. Moderate (2+) mitral regurgitation. Mild aortic valve regurgitation. Suspect low-flow low-gradient aortic stenosis. Aortic stenosis likely underestimated due to low stroke volume index. 25.56ml/m2 Peak P.00mmHg Mean P.97mmHg . Dimensionless index: 0.47 . Moderate (2+) tricuspid regurgitation. Moderate pulmonary hypertension. Elevated central venous pressure (>15mmHg). ######################################## Measurements Summary: LVEDd: 5.28 cm LVESd: 4.56 cm IVSEd: 1.31 cm AO Root:2.82 cm LVPWd: 1.47 cm Contractility Score Global Left Ventricular Hypokinesis was noted. LV regional wall motion: (0-Not visualized 1-Normal 2-Hypokinesis 3-Akinesis 4-Dyskinesis 5-Aneurysm) Left Ventricle Peak E-wave: 0.82 Peak A-wave: 0.69 m/s E/A ratio: 1.2 m/s Volume [id number] LV length: 10.08 ml cm Volume [id number] ml LVOT diameter: 2.19 cm Normal sized left ventricle. Moderate left ventricular hypertrophy. Visually estimated ejection fraction 15% +/- 5%. Abnormal left ventricular systolic function; abnormal systolic strain pattern. Increased left atrial pressure (Grade II diastolic dysfunction). No left ventricular masses or thrombi. Right Ventricle Diastolic dimension: 5.49 RV systolic pressure: 51.72 mmHg cm Dilated right ventricle. Abnormal TAPSE; abnormal right ventricular function. Left Atrium LA dimension: 4.1 cm LA volume:87.91 ml LA/Aorta: 1.45 Mildly dilated left atrium. Abnormal left atrial volume index 40.32ml/m2. Intact atrial septum. No atrial mass or thrombus. Right Atrium Mildly dilated right atrium. Dilated IVC with no inspiratory collapse. Intact atrial septum. No atrial mass or thrombus. Mitral Valve Deceleration time: 146.29 msec MR velocity: 4.83 m/s Thickened leaflets; no stenosis. Mild mitral valve annulus calcification. Moderate (2+) mitral regurgitation. No mitral stenosis. No masses or vegetations seen. Aortic Valve AI P1/2t: Area continuity: Peak velocity: 1.94 m/s 1117.21 msec 1.75 cm^2 Peak gradient: 15.05 AV VTI: 31.76 cm Mean velocity: 1.24 mmHg LVOT VTI: 14.74 m/s Mean gradient: 7.12 mmHg cm Deceleration time: 3852.45 msec Three cusped aortic valve Calcified aortic valve leaflets. Aortic annulus calcification. Mild aortic valve regurgitation. Moderately restricted aortic valve opening of the RCC and NCC. Suspect low-flow low-gradient aortic stenosis. Aortic stenosis likely underestimated due to low stroke volume index. 25.56ml/m2 Peak P.00mmHg Mean P.97mmHg . Dimensionless index: 0.47 . No masses or vegetations seen. Tricuspid Valve TR velocity: 3.03 m/s TR gradient: 36.7236 mmHg Estimated RAP: 15 mmHg RVSP: 51.78 mmHg Thick tricuspid valve leaflets. Moderate (2+) tricuspid regurgitation. Moderate pulmonary hypertension. No tricuspid stenosis. No masses or vegetations seen. Pulmonic Valve PASP: 51.72 mmHg Structurally normal pulmonic valve. Abnormal pulmonary acceleration time. Mild pulmonic regurgitation. No pulmonic stenosis. No masses or vegetations seen. Great Vessels Aorta Aortic Root: 2.82 cm Ascending Aorta: 3.44 cm LVOT Diameter: 2.19 cm Visualized aorta is normal. Normal aortic root. No evidence of dissection. Dilated IVC with no inspiratory collapse. Elevated central venous pressure (>15mmHg). Pericardium / Pleura No pericardial effusion. Problem list: Principal Problem: Acute on chronic diastolic CHF (congestive heart failure) ([facility]) Impression and Plan: IMPRESSION: * Acute combined systolic and diastolic heart failure with reduced ejection fraction, stage C, NYHAclass III A. EF 20-25% per echocardiogram at outside facility * NSVT * Atherosclerotic cardiovascular disease with history of PCI * Valvular heart disease history of AR/MR * Hypertension * Dyslipidemia * Diabetes mellitus type 2 * Peripheral vascular disease with history of AKA * LECHUGA cirrhosis * KOKO on CKD stage IV * COPD * History of medical noncompliance Continue IV diuresis Electrophysiology planning for LifeVest and outpatient subcutaneous ICD implantation Heart failure education provided Further recommendation pending response Continue to hold Jardiance and Entresto for now PLAN: 11/02/2023 -Patient continued to be volume overloaded, renal function has worsened, will recommend to continueIV diuresis, appreciate nephrology recommendation. -Continue to hold nephrotoxic medication -Overall poor prognosis 11/01/2023 -Patient still volume overloaded, worsening renal function, would recommend to continue IV diuresis -Appreciate nephrology consult. -Will continue to hold on any nephrotoxic medications at this point. -Further recommendation pending clinical course. 10/31/2023 -Would recommend to continue IV diuresis with Bumex 2 mg twice daily, close monitoring of ins and outs, electrolytes, renal function -Replace potassium and magnesium, keep potassium between 4 and 5, magnesium above 2 -Acute kidney injury, worsening renal function, would recommend to hold on any nephrotoxic medication (hold Jardiance and Entresto). Would recommend nephrology consult -Blood pressure was slight elevated today, adding hydralazine and nitrate for now. -Further recommendation pending clinical course. 10/30/2023 -Patient with acute on chronic combined systolic and diastolic heart failure, EF of 20%, ischemic cardiomyopathy, acute on chronic severe chronic kidney disease stage IV would recommend to continue diuresis with IV Bumex 2 mg twice daily, close monitoring of ins and outs, electrolytes, renal function. -Would recommend nephrology consultation -Would recommend to hold nephrotoxic medication (will hold Entresto and Jardiance at this point) -BB for ICD consideration -Further recommendation pending his clinical course * Gilbert Dailey MD - 11/01/2023 3:21 PM EDT Store Operations Manager: Chief Complaint: No chief complaint on file. Subjective: Reports that scrotal swelling has improved Social History: Social History Socioeconomic History ??? Marital status: Unknown Spouse name: Not on file ??? Number of children: Not on file ??? Years of education: Not on file ??? Highest education level: Not on file Occupational History ??? Not on file Tobacco Use ??? Smoking status: Every Day Types: Cigarettes ??? Smokeless tobacco: Never Substance and Sexual Activity ??? Alcohol use: Not Currently ??? Drug use: Never ??? Sexual activity: Not on file Other Topics Concern ??? Not on file Social History Narrative ??? Not on file Social Determinants of Health Financial Resource Strain: High Risk (10/29/2023) Financial Resource Strain ??? : 1 Food Insecurity: Food Insecurity Present (10/29/2023) Food Insecurity ??? : 1 ??? : 0 Transportation Needs: Unmet Transportation Needs (10/29/2023) Transportation Needs ??? : 1 Physical Activity: Inactive (10/29/2023) Physical Activity ??? : 0 Stress: No Stress Concern Present (10/29/2023) Stress ??? : 1 Social Connections: Low Risk (10/29/2023) Family and Community Support ??? : 0 ??? : 0 Intimate Partner Violence: Not on file Housing Stability: Low Risk (10/29/2023) Housing Stability ??? : 0 ??? : 0 Living Arrangements: Alone Type of Residence: Private residence Family History: No family history on file. Medications: No current facility-administered medications on file prior to encounter. Current Outpatient Medications on File Prior to Encounter Medication Sig Dispense Refill ??? [DISCONTINUED] dapagliflozin propanediol (FARXIGA) 10 mg tablet Take 1 tablet (10 mg total) by mouth daily. ??? albuterol HFA (VENTOLIN HFA) 90 mcg/actuation inhaler Inhale 1 puff by mouth via inhaler every 6 (six) hours as needed for wheezing. ??? aspirin 81 MG EC tablet Take 1 tablet (81 mg total) by mouth daily. ??? atorvastatin (LIPITOR) 80 MG tablet Take 1 tablet (80 mg total) by mouth nightly. ??? carvediloL (COREG) 12.5 MG tablet Take 1 tablet (12.5 mg total) by mouth 2 (two) times daily with breakfast and dinner. ??? furosemide (LASIX) 40 MG tablet Take 1 tablet (40 mg total) by mouth daily as needed (Edema). ??? gabapentin (NEURONTIN) 600 MG tablet Take 1 tablet (600 mg total) by mouth 3 (three) times daily. ??? hydrALAZINE (APRESOLINE) 50 MG tablet Take 1 tablet (50 mg total) by mouth 3 (three) times daily Look-alike/Sound-alike medication. ??? insulin detemir U-100 (LEVEMIR) 100 unit/mL (3 mL) InPn injection Inject 0.13 mLs (13 Units total) subcutaneously nightly. ??? isosorbide dinitrate (ISORDIL) 40 MG tablet Take 1 tablet (40 mg total) by mouth 3 (three) times daily. ??? [DISCONTINUED] clopidogreL (PLAVIX) 75 mg tablet Take 1 tablet (75 mg total) by mouth daily Look-alike/Sound-alike medication. Review of Systems: Pertinent items are noted in HPI. Physical Exam: Physical Exam Constitutional: General: He is not in acute distress. Appearance: Normal appearance. He is not toxic-appearing or diaphoretic. HENT: Head: Normocephalic and atraumatic. Nose: Nose normal. Mouth/Throat: Mouth: Mucous membranes are moist. Pharynx: Oropharynx is clear. Eyes: Extraocular Movements: Extraocular movements intact. Conjunctiva/sclera: Conjunctivae normal. Pupils: Pupils are equal, round, and reactive to light. Cardiovascular: Rate and Rhythm: Normal rate and regular rhythm. Heart sounds: Normal heart sounds. No murmur heard. No gallop. Pulmonary: Effort: Pulmonary effort is normal. No respiratory distress. Breath sounds: Normal breath sounds. Abdominal: General: Abdomen is flat. Bowel sounds are normal. There is no distension. Palpations: Abdomen is soft. Tenderness: There is no abdominal tenderness. There is no guarding. Musculoskeletal: General: Deformity present. No swelling. Normal range of motion. Cervical back: Normal range of motion and neck supple. Left lower leg: No edema. Comments: Left BKA Skin: General: Skin is warm and dry. Coloration: Skin is not pale. Findings: No erythema. Neurological: General: No focal deficit present. Mental Status: He is alert and oriented to person, place, and time. Cranial Nerves: No cranial nerve deficit. Motor: No weakness. Psychiatric: Mood and Affect: Mood normal. Behavior: Behavior normal. Judgment: Judgment normal. Vitals: Hemodynamic parameters reviewed for last 24 hours. Blood pressure 136/89, pulse 68, temperature 98.1 ??F (36.7 ??C), temperature source Oral, resp. rate 18, height 1.854 m (6' 1 ), weight 92.8 kg (204 lb 8 oz), SpO2 100 %. Assessment and Plan: ?? *Acute on chronic systolic/diastolic CHF / NYHA class III stage D For volume overload with anasarca on admission LVEF 20 to 25% per OSH echo, 15% reported here as per ECHO 10/29/2023 *Scrotal edema *ASCVD History of prior PCI History of non-STEMI *VHD With aortic regurgitation and mitral regurgitation (echo pending) *Hypertension *Hyperlipidemia *Diabetes mellitus type 2 Insulin-dependent *Peripheral vascular disease History of left [id number] amputation (uses a prosthesis) *LECHUGA cirrhosis *COPD With acute on chronic hypoxemic respiratory failure *Noncompliance *KOKO on CKD stage IV *Cellulitis of the right calf Skin culture obtained on 730 showed Klebsiella and Enterobacter species *Low flow low gradient ?? PLAN: 11/01/2023 Labs and telemetry reviewed, management of cellulitis as per primary team, will order LifeVest and schedule subcutaneous ICD implant as an outpatient Case discussed with who is the referring physician. 10/31/2023 Labs and tele reviewed, NSVT last night, continue diuresis with monitoring of renal function. Discussed with , patient is not sure what medications he takes, he needs to be on GDMT (BB at least given his renal failure) and needs to show compliance, Also given cellulitis it would be most appropriate at this point to prescribe life vest and have him follow up as outpatient. 10/30/2023 Patient has been placed on GDMT, limitations of increasing and adding guideline directed medical therapy is his renal failure, will increase Toprol-XL dose. Echocardiogram here showed ejection fraction of 15% low-flow low gradient aortic stenosis, patient will require an ICD for primary prevention of sudden cardiac however given recent skin cultures that showed Klebsiella and Enterobacter species, will hold off until we are sure there is no ongoing infection, I examined his right leg which showed no open wounds. I will consider him for subcutaneous ICD once cellulitis/infection is addressed. Continue diuresis and management of congestive heart failure as per cardiology team, nephrology was consulted. 10/29/2023 Telemetry reviewed. Will obtain twelve-lead EKG. We will obtain complete echocardiogram. Agree with initiation of GDMT. Agree with diuresis. We will consult cardiology for assistance with CHF management. We will consult nephrology for assistance with KOKO on CKD. Monitor and replace electrolytes as needed to keep potassium level greater than 4.0 and magnesium greater than 2.0 at all times. BMP and magnesium level pending. Will check TSH and free T4. Discussed wit . Further recommendations pending testing results, clinical course, and response to therapy. Signed: Gilbert Dailey MD 11/01/2023 8:27 PM * Tamara Winters RN - 11/01/2023 1:11 PM EDT 11/01/23 6647 Home Environment Type of Residence Private residence Living Arrangements Alone Support Systems Children Accessibilty Issues None Patient returning to prior living situation? Unknown Affect Behavior Appropriate Prior/Regular Transportation Public transportation;Family Needs Assistance with Transportation Yes ADL Assessment Current Sensory Deficits None Patient's Vision Adequate to Safely Complete Daily Activities 1 Patient's Judgement Adequate to Safely Complete Daily Activities 1 Dressing Independent Current Home Care Services None Assistive Devices Wheelchair;Walker Transition Needs Home or Post Acute Services Post acute facilities (Rehab/SNF/etc);In home services Type of Home Care Services Home Health Agency (Comment) Type of Post Acute Facility Services Rehab Does the patient have the ability to fill and receive their discharge medications? No Discharge Plan Discussed The discharge plan was discussed with patient. Discharge Plan Outcome Disagrees with the discharge plan (Comment) (Not sure he wants rehab at this time) Discharge Barriers Activity Type of Assistive Devices Needed for Discharge None Patient Discharge Goal Home Mandated Reporting Not applicable 11/01/23 1307 Home Environment Type of Residence Private residence Living Arrangements Alone Support Systems Children Accessibilty Issues None Patient returning to prior living situation? Unknown Affect Behavior Appropriate Prior/Regular Transportation Public transportation;Family Needs Assistance with Transportation Yes ADL Assessment Current Sensory Deficits None Patient's Vision Adequate to Safely Complete Daily Activities 1 Patient's Judgement Adequate to Safely Complete Daily Activities 1 Dressing Independent Current Home Care Services None Assistive Devices Wheelchair;Walker Transition Needs Home or Post Acute Services Post acute facilities (Rehab/SNF/etc);In home services Type of Home Care Services Home Health Agency (Comment) Type of Post Acute Facility Services Rehab Does the patient have the ability to fill and receive their discharge medications? No Discharge Plan Discussed The discharge plan was discussed with patient. Discharge Plan Outcome Disagrees with the discharge plan (Comment) (Not sure he wants rehab at this time) Discharge Barriers Activity Type of Assistive Devices Needed for Discharge None Patient Discharge Goal Home Mandated Reporting Not applicable Care Coordination Initial Assessment Home Environment Type of Residence: (P) Private residence Living Arrangements: (P) Alone Support System: (P) Children Home Caregiver: Accessibility Issues: (P) None Current Agency Name & Number: Patient returning to prior living situation? (P) Unknown Compliance: Motivation: Affect/Behavior: (P) Appropriate Prior/Regular Transportation: (P) Public transportation, Family Current Transportation Agency Information: Needs assistance with transportation:(P) Yes ADL Screen Current Sensory Deficits: (P) None Patient's Vision Adequate to Safely complete ADLs:(P) Yes Patient's Judgement Adequate to safely completed ADLs: (P) Yes Dressing: (P) Independent Current Home Care Services: Current Home Care Services: (P) None Assistive Devices(P) Yes Patient's Judgement Adequate to Safely Complete Daily Activities: (P) Yes Dressing: (P) Independent Current Lines, Tubes: Special/Community Services: Transition Needs Expected Discharge Date: 11/02/2023 Home or Post Acute Services Needed: (P) Post acute facilities (Rehab/SNF/etc), In home services Does the patient have the ability to fill and receive their discharge medications: (P) No Discharge plan discussed: (P) The discharge plan was discussed with patient. Discharge Barriers: (P) Activity Type of Assistive Devices Needed for Discharge: (P) None Patient Discharge Goal: (P) Home Mandated Reporting: (P) Not applicable PT/OT/PRINCIPAL EXAMINER Recommendations PT Recommendations: 1-2 hours physical therapy per day OT Recommendations: PRINCIPAL EXAMINER Recommendations: CM consulted for DCP and possible SNF placement vs home health. Spoke with patient. He currently lives alone. PLOF is independent with mobile devices, wheelchair and walker. His LNOK is son Robert Hurley III. He uses family and public transportation. He states he currently uses home oxygen that he purchased himself from online marketplace . May need walk test prior to discharge. Cardiology ordered LifeVest, [employer] rep Bhargavi Toscano notified, . He states that he doesn't want to go to rehab unless he has to and wants to wait for couple days to see if he gets better after scrotal edema improves. If rehab is necessary, his first choice is [facility]. Will wait to send referral. May need home health. Will re-evaluate at a later date. Will need transportation upon discharge whether to home orfacility. CM to follow. Tamara Winters RN * Gonzalo Eaton, PT - 11/01/2023 11:30 AM EDT Images from the original note were not included. Inpatient Physical Therapy Treatment Patient Name: Robert Hurley Jr. Date of : 1965 Date of Treatment: 11/01/23 Start Time 1101 Stop Time 1130 Session Duration 29 minutes General Visit Type: Treatment Approved by: Nursing Patient Disposition Upon Entry: Supine in bed, Call Light/Pull Cord in reach, All needs met and within reach Patient Verified By: Name and Date of Assisted by: Physical therapist Precautions Weight-Bearing Status: No Restrictions Precautions: Fall risk Isolation Precautions: Standard Lines, tubes, drains, airway: nasal cannula Subjective Subjective: Patient agreeable to physical therapy treatment. Pain Yes. 0-10 SCALE Pain location: Scrotum 10/05. Pain intervention: Ambulation/increased activity. Response to intervention: Not changed Cognition Overall cognitive status: WFL Arousal/Alertness: Appropriate response to stimuli Attention Span: Appears intact Memory: Appears intact Orientation Level: Oriented x4 Following commands: Follows all commands and directions without difficulty Objective Vitals Pre-intervention vitals Heart rate: 69 beats per minute Blood pressure: 147/100 mmHg SpO2: 100% O2: 3 (L/min) nasal cannula Post-intervention vitals Heart rate: 72 beats per minute Blood pressure: 134/83 mmHg SpO2: 100% O2 : 3 (L/min) nasal cannula Functional Mobility Bed Mobility: Rolling Right: modified independent, HOB elevated, use of bed features Supine to Sit: minimal assistance, 1-person assist, HOB elevated, use of bed features Bed Scooting: minimal assistance, 1-person assist, HOB elevated Transfers Sit to Stand: maximal assistance, 2-person assist, gait belt used, rolling walker used Stand to Sit: maximal assistance, 2-person assist, gait belt used, rolling walker used Gait Not assessed this date due to inability to fit into prosthesis d/t swelling. Stair Management Not assessed this date due to inability to fit into prosthesis d/t swelling. Wheelchair Mobility Not assessed, patient ambulatory. AM-PAC Basic Mobility Inpatient Short Form How much difficulty does the patient currently have: Turning over in bed (including adjusting bedclothes, sheets, and blankets)? (1) Total/Unable (not able to do the activity or can only perform the activity using assistive devices or requires assistance from another person, including supervision or cueing for safety) Sitting down on and standing up from a chair with arms (e.g., wheelchair, bedside commode, etc.)? (1) Total/Unable (not able to do the activity or can only perform the activity using assistive devices or requires assistance from another person, including supervision or cueing for safety) Moving from lying on back to sitting on side of bed? (1) Total/Unable (not able to do the activity or can only perform the activity using assistive devices or requires assistance from another person,including supervision or cueing for safety) How much help from another person does the patient currently need: Moving to and from a bed to a chair (including a wheelchair)? (2) A lot (Maximal/Moderate assist) Need to walk in hospital room? (1) Total/Unable (Total assist/dependent) Climbing 3-5 steps with a railing? (1) Total/Unable (Total assist/dependent) Score Raw score=7 t-scale score=26.42 Standard error=4.33 CMS 0-100%=92.36% MDC=4.72 A raw score of >= 16 is significantly associated with increased odds of discharge to home in addition to consideration made for the patient's cognition and social determinants of health. Balance Static/dynamic sitting and static/dynamic standing balance grades Balance Grade Sitting Static Good - patient able to maintain balance without handhold support, limited postural sway Sitting Dynamic Fair - patient accepts minimal challenge; able to maintain balance while turning head/trunk Standing Static Fair - patient able to maintain balance with handhold support; may require occasional minimal assistance Standing Dynamic Poor - patient unable to accept challenge or move without loss of balance Activity Tolerance Patient limited with activity/intervention due to pain and weakness Treatment Pt supine in bed, alert and oriented x4. Pt able to roll to his R side Calista with use of bed features. Pt required ModAx1 with HOB elevated to sit EOB. Gait belt was paced on pt and RWx in front of pt. Pt required MaxAx2 to stand with gait belt and RWx. Pt requested to sit d/t weakness and pain, requiring MaxAx2 to sit with gait belt and RWx. Pt then stood with omar steady, requiring MaxAx2 to stand with gait belt. Pt was transferred to bedside recliner with omar rajan. Pt educated on UE theraband exercises and HEP. Pt left with call light within reach and all needs met prior to departure. Assessment Pt presents to therapy following Dx of scrotal edema, CHF, and pruritis. Pt also present with L AKA, prosthesis present in room. Pt deficits include impaired balance, general weakness, pain, impairedfunctional mobility, and limited tolerance to activity. Pt deficits place him at a high risk of falls. Pt deficits impair his ability to perform ADLs such as dressing and bathing. Pt would benefit from skilled PT in order to address the aforementioned deficits as well as maximize his functional independence, safety, and QOL. Problems: Decreased core stability, Decreased functional mobility, Decreased gait tolerance, Decreased strength, Decreased activity tolerance, Impaired sitting balance, Impaired standing balance, Impaired dynamic balance, Gait impairment, Edema Rehab potential: Good for stated goals Plan Treatment plan: Therapeutic Exercise, Therapeutic Activity, Gait Training, Neuromuscular Re-education, Transfer Training, Balance Training, Stair Training, Strengthening, Home Exercise Program PT Frequency/Duration: 5x/week for 14 days Recommendations Discharge recommendations: Patient would benefit from 1-2 hours of multidisciplinary therapy per day upon discharge from acute care setting to assist with returning to prior level of functioning. DME recommendations: Unable to make recommendations at this time. Goals Supine to/from sit: Complete ind Gait: complete 50' with min A x1 with RWx without prosthesis Stair Negotiation: complete 3 steps with Min A x1 with RWx without prosthesis Transfer: complete Calista with RWx bed to/from [employer] Date: 11/14/2023 Progress towards goals: progressing Education Patient educated on safety, use of call button, role of physical therapy, plan of care, therapeuticexercise, HEP packet and risk for falls and following, they were able to verbalize understanding. No further questions or concerns stated. Patient Disposition Upon Leaving Patient in bedside chair, Call Light/Pull Cord in reach, All needs met and within reach If this patient discharges prior to next therapy session, this note serves as the patient's discharge summary. Electronically signed by Robby Mejia PT Student - 11/01/23 - 12:38 PM EDT This note written by PT student. PT has reviewed the above documentation and agrees. Electronically signed by Gonzalo Eaton PT, DPT - 11/01/23 - 3:40 PM EST * Monika Pennington MD - 11/01/2023 10:38 AM EDT Subjective History of Present Illness: Patient is very poor historian Robert Hurley Jr. is a 58 y.o. male with history of CKD 4 with base creatinine close to ~3, DM,HTN,CHF, left AKA ,difficulty accessing health care resources and keeping follow ups,noncompliance??who presented to [facility] on 10/25 for evaluation of several days of worsening shortness ofbreath and scrotal edema. [facility] as above ,He had echocardiogram done showing EF of 20-25% and was transferred to [facility] for EP evaluation of AICD. ? Yesterday Labs at OSH showed wbc 3.5, hgb 10.5, plt 201, sodium 138, potassium 5.0, creatinine 3.3,mag 2.0. Nephrology was consulted for Renal failure and Volume management 10/31: resting on bed , no new issues Review of Systems Constitutional: Negative. HENT: Negative. Eyes: Negative. Respiratory: Positive for shortness of breath. Cardiovascular: Positive for leg swelling. Gastrointestinal: Negative. Genitourinary: Negative. Skin: Negative. Neurological: Positive for weakness. Psychiatric/Behavioral: Negative. Objective Last Recorded Vitals Blood pressure 131/85, pulse 64, temperature 98.6 ??F (37 ??C), temperature source Oral, resp. rate18, height 1.854 m (6' 1 ), weight 92.8 kg (204 lb 8 oz), SpO2 98 %. Physical Exam Constitutional: Appearance: Normal appearance. HENT: Head: Normocephalic and atraumatic. Nose: Nose normal. Mouth/Throat: Mouth: Mucous membranes are moist. Eyes: Extraocular Movements: Extraocular movements intact. Pupils: Pupils are equal, round, and reactive to light. Cardiovascular: Rate and Rhythm: Normal rate and regular rhythm. Heart sounds: Normal heart sounds. Pulmonary: Breath sounds: Normal breath sounds. Abdominal: General: Abdomen is flat. Palpations: Abdomen is soft. Musculoskeletal: Cervical back: Normal range of motion and neck supple. Skin: General: Skin is warm and dry. Neurological: Mental Status: He is alert and oriented to person, place, and time. Psychiatric: Mood and Affect: Mood normal. Behavior: Behavior normal. Labs: Results for orders placed or performed during the hospital encounter of 10/29/23 (from the past 24 hour(s)) Glucose, Nova Meter Status: Abnormal Collection Time: 11/01/23 11:49 AM Result Value Ref Range POC-GLUCOSE 147 (H) 70 - 110 mg/dL Loom Operator Apprentice [id number] Glucose, Nova Meter Status: Abnormal Collection Time: 11/01/23 3:59 PM Result Value Ref Range POC-GLUCOSE 155 (H) 70 - 110 mg/dL Loom Operator Apprentice [id number] Glucose, Nova Meter Status: Abnormal Collection Time: 11/01/23 7:28 PM Result Value Ref Range POC-GLUCOSE 137 (H) 70 - 110 mg/dL Loom Operator Apprentice [id number] Basic Metabolic Panel Status: Abnormal Collection Time: 11/02/23 4:30 AM Result Value Ref Range Sodium 136 136 - 146 meq/L Potassium 4.3 3.5 - 5.1 meq/L Chloride 97 (L) 102 - 112 meq/L CO2 33 (H) 21 - 32 meq/L Anion Gap 10 9 - 20 BUN 56 (H) 7 - 22 mg/dL Creatinine 3.89 (H) 0.70 - 1.30 mg/dL BUN/Creatinine 14 8 - 20 Glucose 161 (H) 74 - 106 mg/dL Calcium 8.9 8.4 - 10.1 mg/dL Osmolality Calc 290.9 eGFR (mL/min/1.73m2) 17 (L) >=60 mL/min/1.73m2 Magnesium Status: Normal Collection Time: 11/02/23 4:30 AM Result Value Ref Range Magnesium 2.0 1.5 - 2.4 mg/dL Glucose, Nova Meter Status: Abnormal Collection Time: 11/02/23 7:38 AM Result Value Ref Range POC-GLUCOSE 143 (H) 70 - 110 mg/dL Loom Operator Apprentice [id number] XR chest AP portable Narrative: Name: ROEBRT HURLEY JRLeonid : 1965 CHEST SINGLE VIEW COMPARISON: Chest from 12 April 2015 HISTORY: Shortness of breath. FINDINGS: Cardiac silhouette is moderately enlarged. Lungs are underinflated. Mild interstitial opacities seen in both lungs, probably chronic. Impression: 1. Cardiomegaly and mild interstitial opacity favored to be chronic. Follow-up better inflated PA and lateral chest radiograph may be of value. 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 Patient Status: Routine [facility] History/Tech Notes: Indication: shortness of breath R06.02 Impression: ######################################## Normal sized left ventricle. Moderate left ventricular hypertrophy. Visually estimated ejection fraction 15% +/- 5%. Abnormal left ventricular systolic function; abnormal systolic strain pattern. Increased left atrial pressure (Grade II diastolic dysfunction). Dilated right ventricle. Abnormal TAPSE; abnormal right ventricular function. Moderate (2+) mitral regurgitation. Mild aortic valve regurgitation. Suspect low-flow low-gradient aortic stenosis. Aortic stenosis likely underestimated due to low stroke volume index. 25.56ml/m2 Peak P.00mmHg Mean P.97mmHg . Dimensionless index: 0.47 . Moderate (2+) tricuspid regurgitation. Moderate pulmonary hypertension. Elevated central venous pressure (>15mmHg). ######################################## Measurements Summary: LVEDd: 5.28 cm LVESd: 4.56 cm IVSEd: 1.31 cm AO Root:2.82 cm LVPWd: 1.47 cm Contractility Score Global Left Ventricular Hypokinesis was noted. LV regional wall motion: (0-Not visualized 1-Normal 2-Hypokinesis 3-Akinesis 4-Dyskinesis 5-Aneurysm) Left Ventricle Peak E-wave: 0.82 Peak A-wave: 0.69 m/s E/A ratio: 1.2 m/s Volume [id number] LV length: 10.08 ml cm Volume [id number] ml LVOT diameter: 2.19 cm Normal sized left ventricle. Moderate left ventricular hypertrophy. Visually estimated ejection fraction 15% +/- 5%. Abnormal left ventricular systolic function; abnormal systolic strain pattern. Increased left atrial pressure (Grade II diastolic dysfunction). No left ventricular masses or thrombi. Right Ventricle Diastolic dimension: 5.49 RV systolic pressure: 51.72 mmHg cm Dilated right ventricle. Abnormal TAPSE; abnormal right ventricular function. Left Atrium LA dimension: 4.1 cm LA volume:87.91 ml LA/Aorta: 1.45 Mildly dilated left atrium. Abnormal left atrial volume index 40.32ml/m2. Intact atrial septum. No atrial mass or thrombus. Right Atrium Mildly dilated right atrium. Dilated IVC with no inspiratory collapse. Intact atrial septum. No atrial mass or thrombus. Mitral Valve Deceleration time: 146.29 msec MR velocity: 4.83 m/s Thickened leaflets; no stenosis. Mild mitral valve annulus calcification. Moderate (2+) mitral regurgitation. No mitral stenosis. No masses or vegetations seen. Aortic Valve AI P1/2t: Area continuity: Peak velocity: 1.94 m/s 1117.21 msec 1.75 cm^2 Peak gradient: 15.05 AV VTI: 31.76 cm Mean velocity: 1.24 mmHg LVOT VTI: 14.74 m/s Mean gradient: 7.12 mmHg cm Deceleration time: 3852.45 msec Three cusped aortic valve Calcified aortic valve leaflets. Aortic annulus calcification. Mild aortic valve regurgitation. Moderately restricted aortic valve opening of the RCC and NCC. Suspect low-flow low-gradient aortic stenosis. Aortic stenosis likely underestimated due to low stroke volume index. 25.56ml/m2 Peak P.00mmHg Mean P.97mmHg . Dimensionless index: 0.47 . No masses or vegetations seen. Tricuspid Valve TR velocity: 3.03 m/s TR gradient: 36.7236 mmHg Estimated RAP: 15 mmHg RVSP: 51.78 mmHg Thick tricuspid valve leaflets. Moderate (2+) tricuspid regurgitation. Moderate pulmonary hypertension. No tricuspid stenosis. No masses or vegetations seen. Pulmonic Valve PASP: 51.72 mmHg Structurally normal pulmonic valve. Abnormal pulmonary acceleration time. Mild pulmonic regurgitation. No pulmonic stenosis. No masses or vegetations seen. Great Vessels Aorta Aortic Root: 2.82 cm Ascending Aorta: 3.44 cm LVOT Diameter: 2.19 cm Visualized aorta is normal. Normal aortic root. No evidence of dissection. Dilated IVC with no inspiratory collapse. Elevated central venous pressure (>15mmHg). Pericardium / Pleura No pericardial effusion. Assessment 1. Acute on chronic CKD stage IV, secondary to cardiorenal syndrome type I 2. Chronic kidney disease stage IV secondary to type II cardiorenal syndrome/hypertensive nephrosclerosis and diabetic nephropathy Repeated Echo with EF:~10-15 % 3. Volume overload 4. Anemia 5. Acute combined systolic and diastolic exacerbation of CHF with repeated ejection fraction of 10-15% 6. Type 2 diabetes 7. Peripheral vascular disease/coronary artery disease 8. Hypertension 9. History of COPD Plan -Optimization of cardiac function as per cardiology, patient is on cardioprotective medications -Continue with loop diuretics Bumex 2 mg Twice daily for now and this can be adjusted as needed depending on the urine output -Creatinine 3.5 close to base, electrolytes are okay -Avoid nephrotoxins, keep MAP above 65 -Strict intake and output -Renally dose medications -No need for CONSTRUCTION ENGINEERING MANAGER at present time,high risk of deterioration and needing CONSTRUCTION ENGINEERING MANAGER -Thanks for consultation for along with you ?? [facility] [address] [place], [place], [address] Phone #[phone] Fax #[phone] High complex case * Nohelia La Nena, - 11/01/2023 10:19 AM EDT [facility] HOSPITAL[facility] PROGRESS NOTE Patient: Robert Hurley Jr. Date: 11/01/2023 Subjective CC: scrotal edema Date of Service: 11/01/2023 Patient seen and examined at bedside this AM with RN present. He tells me that his scrotal swellingis improving, sob improving. Back was itching yesterday, that is also improving. He tells me that he still feels weak, he lives by himself and is agreeable to SNF on dc if remains this week. Objective Vitals: Temp: [97.3 ??F (36.3 ??C)-98.4 ??F (36.9 ??C)] 98.4 ??F (36.9 ??C) Pulse: [64-68] 68 Resp: [16-20] 16 BP: (110-139)/(66-95) 139/94 Intake/Output: Intake/Output Summary (Last 24 hours) at 11/01/2023 1019 Last data filed at 11/01/2023 0900 Gross per 24 hour Intake 240 ml Output 400 ml Net -160 ml Physical exam: General: Alert and oriented, no acute distress, appears older than stated age, lying in bed Neurologic: Awake, alert, and oriented X3, no apparent focal deficits Lungs: Clear to auscultation, non-labored respiration, on nc, no wheezing or rhonchi Heart: Normal rate, regular rhythm, right calf trace edema Abdomen: Soft, non-tender, non-distended, normal bowel sounds : minimal scrotal swelling, no erythema or drainage Musculoskeletal: left AKA present Skin: Skin is warm and dry, patchy erythema to lower back. Right foot with dry skin and scaling, right foot edema present, thickened toenails on right, no open ulcers on right. Psychiatric: Cooperative, appropriate mood and affect Labs: Results for orders placed or performed during the hospital encounter of 10/29/23 (from the past 24 hour(s)) Glucose, Nova Meter Status: Abnormal Collection Time: 10/31/23 12:13 PM Result Value Ref Range POC-GLUCOSE 207 (H) 70 - 110 mg/dL Loom Operator Apprentice [id number] Glucose, Nova Meter Status: Abnormal Collection Time: 10/31/23 4:37 PM Result Value Ref Range POC-GLUCOSE 176 (H) 70 - 110 mg/dL Loom Operator Apprentice [id number] Glucose, Nova Meter Status: Abnormal Collection Time: 10/31/23 7:47 PM Result Value Ref Range POC-GLUCOSE 149 (H) 70 - 110 mg/dL Loom Operator Apprentice [id number] Magnesium Status: Normal Collection Time: 11/01/23 5:29 AM Result Value Ref Range Magnesium 2.2 1.5 - 2.4 mg/dL Basic Metabolic Panel Status: Abnormal Collection Time: 11/01/23 5:29 AM Result Value Ref Range Sodium 138 136 - 146 meq/L Potassium 4.4 3.5 - 5.1 meq/L Chloride 100 (L) 102 - 112 meq/L CO2 31 21 - 32 meq/L Anion Gap 11 9 - 20 BUN 52 (H) 7 - 22 mg/dL Creatinine 3.54 (H) 0.70 - 1.30 mg/dL BUN/Creatinine 15 8 - 20 Glucose 118 (H) 74 - 106 mg/dL Calcium 8.8 8.4 - 10.1 mg/dL Osmolality Calc 290.8 eGFR (mL/min/1.73m2) 19 (L) >=60 mL/min/1.73m2 CBC - Hemogram (SJ-BKR) Status: Abnormal Collection Time: 11/01/23 5:29 AM Result Value Ref Range WBC 4.1 (L) 4.2 - 9.1 K/??L RBC 4.22 (L) 4.63 - 6.08 M/??L Hemoglobin 10.3 (L) 13.7 - 17.5 GM/DL Hematocrit 34.0 (L) 40.1 - 51.0 % MCV 81 79 - 92 fL MCH 24.4 (L) 25.7 - 32.2 pg MCHC 30.3 (L) 32.3 - 36.5 GM/DL RDW 16.6 (H) 11.6 - 14.4 % Platelets 200 140 - 375 K/CU MM MPV 11.1 9.4 - 12.4 fL Glucose, Nova Meter Status: Abnormal Collection Time: 11/01/23 7:44 AM Result Value Ref Range POC-GLUCOSE 112 (H) 70 - 110 mg/dL Loom Operator Apprentice [id number] Radiology: Radiology Results (last 3 days) Procedure Component Value Units Date/Time XR chest AP portable [[id number]] Collected: 10/30/23 1454 Order Status: Completed Updated: 10/30/23 1531 Narrative: Name: ROBERT HURLEY JR. : 1965 CHEST SINGLE VIEW COMPARISON: Chest from 12 April 2015 HISTORY: Shortness of breath. FINDINGS: Cardiac silhouette is moderately enlarged. Lungs are underinflated. Mild interstitial opacities seen in both lungs, probably chronic. Impression: 1. Cardiomegaly and mild interstitial opacity favored to be chronic. Follow-up better inflated PA and lateral chest radiograph may be of value. Images reviewed, interpreted, and dictated by Stephon Cedillo MD Medications: Scheduled Meds: ??? ammonium lactate topical BID ??? aspirin 81 mg oral Daily 81 mg at 11/01/23 0812 ??? atorvastatin 80 mg oral Every Night 80 mg at 10/31/232011 ??? bumetanide 2 mg intravenous BID 2 mg at 11/01/23 0808 ??? cefTRIAXone 1 g intravenous Q24H IVPB Stopped at 10/31/23 1715 ??? [Held by provider] empagliflozin 10 mg oral Daily 10 mg at 10/30/23 0831 ??? guaiFENesin 600 mg oral BID 600 mg at 11/01/23 0809 ??? heparin 5,000 Units subcutaneous Q12H 5,000 Units at 11/01/23 0806 ??? hydrALAZINE 10 mg oral Q8H 10 mg at 10/31/232012 ??? hydrocortisone topical BID Given at 11/01/23 0813 ??? insulin glargine 10 Units subcutaneous Every Night 10 Units at 10/31/232012 ??? insulin lispro 0-18 Units subcutaneous 4x Daily AC 3 Units at 10/31/232013 ??? isosorbide dinitrate 10 mg oral TID 10 mg at 11/01/23 0810 ??? loratadine 10 mg oral Daily 10 mg at 11/01/23 0809 ??? melatonin 3 mg oral Every Night 3 mg at 10/31/232012 ??? metoprolol succinate 75 mg oral Daily 75 mg at 11/01/23 0809 ??? nicotine 1 patch transdermal Daily ??? [Held by provider] sacubitriL-valsartan 1 tablet oral BID 1 tablet at 10/30/23 0831 Continuous Infusions: PRN Meds: ??? acetaminophen ??? dextrose ??? glucagon ??? glucose ??? hydrOXYzine ??? ipratropium-albuteroL ??? ondansetron Or ??? ondansetron PF ??? oxyCODONE ??? oxyCODONE Assessment and Plan Acute on chronic HFrEF - ef of 20-25% on echo at OSH - metoprolol started here - entresto and jardiance on hold due to renal function - continue bumex bid - cardiology consult appreciated. - strict I&O - CHF admission order set used - hold on spironolactone due to hyperkalemia - he came to [facility] for EP eval for AICD, d/w dr dailey today, recommends lifevest on discharge and AICD if EF fails to improve after goal directed therapy as he was not on medications on admission. Pruritis, improved - continue hydrocortisone to back and prn hydroxyzine Scrotal edema, improved - from above - no open abscess or lesions - does not need urology consult at this time ?? LEFT AKA - s/p LEFT AKA 3 years ago - has prosthesis, consult pt/ot Diabetes mellitus - continue ssi and lantus LECHUGA cirrhosis - noted CKD 4 - monitor renal function with diuresis, creatinine 3.3 at OSH on 10/28 - creatinine 3.54 today - nephrology consult appreciated ?? Cellulitis right calf - right calf with chronic skin wound and cellulitis, skin culture from [facility] on 10/25 showed klebsiella and enterobacter- sensistive to all but amp/cefazolin/cefoxitin. - no open ulcers or drainage, I am unsure what the other hospital cultured. - started empiric rocephin on 10/28 for a few days while in hospital - consult wound care ?? Suspected COPD - nebs prn Chronic hypoxic resp failure? - possible on home o2 from private pay? - continue NC and monitor Diet: Orders Placed This Encounter Procedures ??? Consistent Carbohydrate Additional Modifiers: Heart Healthy, 2 gram Sodium Code Status: Current Code Status Full code Medical Decision Making: High complexity medical decision making required due to chf exac which is slowly improving, creatinine bump today to 3.54, on bid bumex, monitor closely. D/w dr dailey and needs lifevest ondischarge. Patient weak, agreeable to snf Discharge Planning: Barriers to discharge: Diuresis and renal function Expected (tentative) discharge in 2-3 days Expected discharge disposition (home, SNF/Rehab, etc): snf Discussed with nurse and case management. Signed: Nohelia Santos Physician Hospitalist Pager [phone] 11/01/2023, 10:23 AM * Kacy Montez MD - 11/01/2023 7:39 AM EDT [facility] - Consult Note Subjective: Feeling better Health Status: Allergies Penicillin Home Medications: Prior to Admission medications Medication Sig Start Date End Date Taking? Authorizing Provider dapagliflozin propanediol (FARXIGA) 10 mg tablet Take 1 tablet (10 mg total) by mouth daily. Yes Historical Provider, albuterol HFA (VENTOLIN HFA) 90 mcg/actuation inhaler Inhale 1 puff by mouth via inhaler every 6 (six) hours as needed for wheezing. Historical Provider, aspirin 81 MG EC tablet Take 1 tablet (81 mg total) by mouth daily. Historical Provider, atorvastatin (LIPITOR) 80 MG tablet Take 1 tablet (80 mg total) by mouth nightly. Historical Provider, carvediloL (COREG) 12.5 MG tablet Take 1 tablet (12.5 mg total) by mouth 2 (two) times daily with breakfast and dinner. Historical Provider, clopidogreL (PLAVIX) 75 mg tablet Take 1 tablet (75 mg total) by mouth daily Look-alike/Sound-alike medication. Historical Provider, furosemide (LASIX) 40 MG tablet Take 1 tablet (40 mg total) by mouth daily as needed (Edema). Historical Provider, gabapentin (NEURONTIN) 600 MG tablet Take 1 tablet (600 mg total) by mouth 3 (three) times daily. Historical Provider, hydrALAZINE (APRESOLINE) 50 MG tablet Take 1 tablet (50 mg total) by mouth 3 (three) times daily Look-alike/Sound-alike medication. Historical Provider, insulin detemir U-100 (LEVEMIR) 100 unit/mL (3 mL) InPn injection Inject 0.13 mLs (13 Units total) subcutaneously nightly. Historical Provider, isosorbide dinitrate (ISORDIL) 40 MG tablet Take 1 tablet (40 mg total) by mouth 3 (three) times daily. Historical Provider, Past 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: Pt has a past medical history of CHF (congestive heart failure) ([facility]), CKD (chronic kidney disease), COPD (chronic obstructive pulmonary disease) ([facility]), and AKA (above knee amputation), left ([facility]). Surgical History: left heart catheterization Tobacco History Pt reports that he has been smoking cigarettes. He has never used smokeless tobacco. Alcohol History Pt reports that he does not currently use alcohol. Drug Use History Pt reports no history of drug use. Family History Noncontributory OBJECTIVE Vital ranges lat 24 hours Temp: [97.3 ??F (36.3 ??C)-97.9 ??F (36.6 ??C)] 97.7 ??F (36.5 ??C) Pulse: [64-81] 64 Resp: [20] 20 BP: (110-155)/(66-111) 115/73 Intake and Output 24 hours: Intake/Output Summary (Last 24 hours) at 11/01/2023 0839 Last data filed at 11/01/2023 0500 Gross per 24 hour Intake -- Output 400 ml Net -400 ml Net I&O this admission: Net IO Since Admission: -1,420 mL [11/01/23 0839] PHYSICAL EXAMINATION General: AOx3, in no acute distress HEENT: atraumatic and normocephalic, no conjunctival injection, no icterus Neck: supple, no JVD Chest/Resp: Chest is clear bilaterally. Cardio: S1 and S2 normal, systolic murmur, l Abdomen/GI: The abdomen is soft without tenderness Extremities: ++ edema, left above-knee amputation. Skin: no rashes Neuro: no focal neurologic deficits grossly AOx3 Inpatient Medications ammonium lactate, , topical, BID aspirin, 81 mg, oral, Daily atorvastatin, 80 mg, oral, Every Night bumetanide, 2 mg, intravenous, BID cefTRIAXone, 1 g, intravenous, Q24H [Held by provider] empagliflozin, 10 mg, oral, Daily guaiFENesin, 600 mg, oral, BID heparin, 5,000 Units, subcutaneous, Q12H hydrALAZINE, 10 mg, oral, Q8H hydrocortisone, , topical, BID insulin glargine, 10 Units, subcutaneous, Every Night insulin lispro, 0-18 Units, subcutaneous, 4x Daily AC isosorbide dinitrate, 10 mg, oral, TID loratadine, 10 mg, oral, Daily melatonin, 3 mg, oral, Every Night metoprolol succinate, 75 mg, oral, Daily nicotine, 1 patch, transdermal, Daily [Held by provider] sacubitriL-valsartan, 1 tablet, oral, BID Results Review: Labs: WBC Date Value Ref Range Status 11/01/2023 4.1 (L) 4.2 - 9.1 K/??L Final 10/31/2023 4.6 4.2 - 9.1 K/??L Final 10/30/2023 4.5 4.2 - 9.1 K/??L Final Hemoglobin Date Value Ref Range Status 11/01/2023 10.3 (L) 13.7 - 17.5 GM/DL Final 10/31/2023 11.5 (L) 13.7 - 17.5 GM/DL Final 10/30/2023 10.5 (L) 13.7 - 17.5 GM/DL Final Platelets Date Value Ref Range Status 11/01/2023 200 140 - 375 K/CU MM Final 10/31/2023 241 140 - 375 K/CU MM Final 10/30/2023 231 140 - 375 K/CU MM Final Creatinine Date Value Ref Range Status 11/01/2023 3.54 (H) 0.70 - 1.30 mg/dL Final 10/31/2023 3.38 (H) 0.70 - 1.30 mg/dL Final 10/30/2023 3.35 (H) 0.70 - 1.30 mg/dL Final BUN Date Value Ref Range Status 11/01/2023 52 (H) 7 - 22 mg/dL Final 10/31/2023 47 (H) 7 - 22 mg/dL Final 10/30/2023 43 (H) 7 - 22 mg/dL Final Potassium Date Value Ref Range Status 11/01/2023 4.4 3.5 - 5.1 meq/L Final 10/31/2023 4.6 3.5 - 5.1 meq/L Final 10/30/2023 4.8 3.5 - 5.1 meq/L Final Sodium Date Value Ref Range Status 11/01/2023 138 136 - 146 meq/L Final 10/31/2023 137 136 - 146 meq/L Final 10/30/2023 138 136 - 146 meq/L Final Magnesium Date Value Ref Range Status 11/01/2023 2.2 1.5 - 2.4 mg/dL Final 10/31/2023 2.3 1.5 - 2.4 mg/dL Final 10/30/2023 2.4 1.5 - 2.4 mg/dL Final AST Date Value Ref Range Status 10/30/2023 34 5 - 37 U/L Final ALT Date Value Ref Range Status 10/30/2023 15 (L) 16 - 61 U/L Final Alkaline Phosphatase Date Value Ref Range Status 10/30/2023 171 (H) 27 - 136 U/L Final TSH Date Value Ref Range Status 10/29/2023 2.420 0.358 - 3.740 uIU/mL Final Imaging: XR chest AP portable Narrative: Name: ROBERT HURLEY JR. : 1965 CHEST SINGLE VIEW COMPARISON: Chest from 12 April 2015 HISTORY: Shortness of breath. FINDINGS: Cardiac silhouette is moderately enlarged. Lungs are underinflated. Mild interstitial opacities seen in both lungs, probably chronic. Impression: 1. Cardiomegaly and mild interstitial opacity favored to be chronic. Follow-up better inflated PA and lateral chest radiograph may be of value. 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 Patient Status: [facility]ine [facility] History/Tech Notes: Indication: shortness of breath R06.02 Impression: ######################################## Normal sized left ventricle. Moderate left ventricular hypertrophy. Visually estimated ejection fraction 15% +/- 5%. Abnormal left ventricular systolic function; abnormal systolic strain pattern. Increased left atrial pressure (Grade II diastolic dysfunction). Dilated right ventricle. Abnormal TAPSE; abnormal right ventricular function. Moderate (2+) mitral regurgitation. Mild aortic valve regurgitation. Suspect low-flow low-gradient aortic stenosis. Aortic stenosis likely underestimated due to low stroke volume index. 25.56ml/m2 Peak P.00mmHg Mean P.97mmHg . Dimensionless index: 0.47 . Moderate (2+) tricuspid regurgitation. Moderate pulmonary hypertension. Elevated central venous pressure (>15mmHg). ######################################## Measurements Summary: LVEDd: 5.28 cm LVESd: 4.56 cm IVSEd: 1.31 cm AO Root:2.82 cm LVPWd: 1.47 cm Contractility Score Global Left Ventricular Hypokinesis was noted. LV regional wall motion: (0-Not visualized 1-Normal 2-Hypokinesis 3-Akinesis 4-Dyskinesis 5-Aneurysm) Left Ventricle Peak E-wave: 0.82 Peak A-wave: 0.69 m/s E/A ratio: 1.2 m/s Volume [id number] LV length: 10.08 ml cm Volume dzqahfpf59.45 ml LVOT diameter: 2.19 cm Normal sized left ventricle. Moderate left ventricular hypertrophy. Visually estimated ejection fraction 15% +/- 5%. Abnormal left ventricular systolic function; abnormal systolic strain pattern. Increased left atrial pressure (Grade II diastolic dysfunction). No left ventricular masses or thrombi. Right Ventricle Diastolic dimension: 5.49 RV systolic pressure: 51.72 mmHg cm Dilated right ventricle. Abnormal TAPSE; abnormal right ventricular function. Left Atrium LA dimension: 4.1 cm LA volume:87.91 ml LA/Aorta: 1.45 Mildly dilated left atrium. Abnormal left atrial volume index 40.32ml/m2. Intact atrial septum. No atrial mass or thrombus. Right Atrium Mildly dilated right atrium. Dilated IVC with no inspiratory collapse. Intact atrial septum. No atrial mass or thrombus. Mitral Valve Deceleration time: 146.29 msec MR velocity: 4.83 m/s Thickened leaflets; no stenosis. Mild mitral valve annulus calcification. Moderate (2+) mitral regurgitation. No mitral stenosis. No masses or vegetations seen. Aortic Valve AI P1/2t: Area continuity: Peak velocity: 1.94 m/s 1117.21 msec 1.75 cm^2 Peak gradient: 15.05 AV VTI: 31.76 cm Mean velocity: 1.24 mmHg LVOT VTI: 14.74 m/s Mean gradient: 7.12 mmHg cm Deceleration time: 3852.45 msec Three cusped aortic valve Calcified aortic valve leaflets. Aortic annulus calcification. Mild aortic valve regurgitation. Moderately restricted aortic valve opening of the RCC and NCC. Suspect low-flow low-gradient aortic stenosis. Aortic stenosis likely underestimated due to low stroke volume index. 25.56ml/m2 Peak P.00mmHg Mean P.97mmHg . Dimensionless index: 0.47 . No masses or vegetations seen. Tricuspid Valve TR velocity: 3.03 m/s TR gradient: 36.7236 mmHg Estimated RAP: 15 mmHg RVSP: 51.78 mmHg Thick tricuspid valve leaflets. Moderate (2+) tricuspid regurgitation. Moderate pulmonary hypertension. No tricuspid stenosis. No masses or vegetations seen. Pulmonic Valve PASP: 51.72 mmHg Structurally normal pulmonic valve. Abnormal pulmonary acceleration time. Mild pulmonic regurgitation. No pulmonic stenosis. No masses or vegetations seen. Great Vessels Aorta Aortic Root: 2.82 cm Ascending Aorta: 3.44 cm LVOT Diameter: 2.19 cm Visualized aorta is normal. Normal aortic root. No evidence of dissection. Dilated IVC with no inspiratory collapse. Elevated central venous pressure (>15mmHg). Pericardium / Pleura No pericardial effusion. Problem list: Principal Problem: Acute on chronic diastolic CHF (congestive heart failure) ([facility]) Impression and Plan: IMPRESSION: * Acute combined systolic and diastolic heart failure with reduced ejection fraction, stage C, NYHAclass III A. EF 20-25% per echocardiogram at outside facility * Atherosclerotic cardiovascular disease with history of PCI * Valvular heart disease history of AR/MR * Hypertension * Dyslipidemia * Diabetes mellitus type 2 * Peripheral vascular disease with history of AKA * LECHUGA cirrhosis * KOKO on CKD stage IV * COPD * History of medical noncompliance Continue IV diuresis Heart failure education provided Further recommendation pending response Continue to hold Jardiance and Entresto for now PLAN: 11/01/2023 -Patient still volume overloaded, worsening renal function, would recommend to continue IV diuresis -Appreciate nephrology consult. -Will continue to hold on any nephrotoxic medications at this point. -Further recommendation pending clinical course. 10/31/2023 -Would recommend to continue IV diuresis with Bumex 2 mg twice daily, close monitoring of ins and outs, electrolytes, renal function -Replace potassium and magnesium, keep potassium between 4 and 5, magnesium above 2 -Acute kidney injury, worsening renal function, would recommend to hold on any nephrotoxic medication (hold Jardiance and Entresto). Would recommend nephrology consult -Blood pressure was slight elevated today, adding hydralazine and nitrate for now. -Further recommendation pending clinical course. 10/30/2023 -Patient with acute on chronic combined systolic and diastolic heart failure, EF of 20%, ischemic cardiomyopathy, acute on chronic severe chronic kidney disease stage IV would recommend to continue diuresis with IV Bumex 2 mg twice daily, close monitoring of ins and outs, electrolytes, renal function. -Would recommend nephrology consultation -Would recommend to hold nephrotoxic medication (will hold Entresto and Jardiance at this point) -BB for ICD consideration -Further recommendation pending his clinical course * Gilbert Dailey MD - 10/31/2023 6:06 PM EDT Store Operations Manager: Chief Complaint: No chief complaint on file. Subjective: Reports that scrotal swelling has improved Social History: Social History Socioeconomic History ??? Marital status: Unknown Spouse name: Not on file ??? Number of children: Not on file ??? Years of education: Not on file ??? Highest education level: Not on file Occupational History ??? Not on file Tobacco Use ??? Smoking status: Every Day Types: Cigarettes ??? Smokeless tobacco: Never Substance and Sexual Activity ??? Alcohol use: Not Currently ??? Drug use: Never ??? Sexual activity: Not on file Other Topics Concern ??? Not on file Social History Narrative ??? Not on file Social Determinants of Health Financial Resource Strain: High Risk (10/29/2023) Financial Resource Strain ??? : 1 Food Insecurity: Food Insecurity Present (10/29/2023) Food Insecurity ??? : 1 ??? : 0 Transportation Needs: Unmet Transportation Needs (10/29/2023) Transportation Needs ??? : 1 Physical Activity: Inactive (10/29/2023) Physical Activity ??? : 0 Stress: No Stress Concern Present (10/29/2023) Stress ??? : 1 Social Connections: Low Risk (10/29/2023) Family and Community Support ??? : 0 ??? : 0 Intimate Partner Violence: Not on file Housing Stability: Low Risk (10/29/2023) Housing Stability ??? : 0 ??? : 0 Living Arrangements: Alone Type of Residence: Private residence Family History: No family history on file. Medications: No current facility-administered medications on file prior to encounter. Current Outpatient Medications on File Prior to Encounter Medication Sig Dispense Refill ??? dapagliflozin propanediol (FARXIGA) 10 mg tablet Take 1 tablet (10 mg total) by mouth daily. ??? albuterol HFA (VENTOLIN HFA) 90 mcg/actuation inhaler Inhale 1 puff by mouth via inhaler every 6 (six) hours as needed for wheezing. ??? aspirin 81 MG EC tablet Take 1 tablet (81 mg total) by mouth daily. ??? atorvastatin (LIPITOR) 80 MG tablet Take 1 tablet (80 mg total) by mouth nightly. ??? carvediloL (COREG) 12.5 MG tablet Take 1 tablet (12.5 mg total) by mouth 2 (two) times daily with breakfast and dinner. ??? clopidogreL (PLAVIX) 75 mg tablet Take 1 tablet (75 mg total) by mouth daily Look-alike/Sound-alike medication. ??? furosemide (LASIX) 40 MG tablet Take 1 tablet (40 mg total) by mouth daily as needed (Edema). ??? gabapentin (NEURONTIN) 600 MG tablet Take 1 tablet (600 mg total) by mouth 3 (three) times daily. ??? hydrALAZINE (APRESOLINE) 50 MG tablet Take 1 tablet (50 mg total) by mouth 3 (three) times daily Look-alike/Sound-alike medication. ??? insulin detemir U-100 (LEVEMIR) 100 unit/mL (3 mL) InPn injection Inject 0.13 mLs (13 Units total) subcutaneously nightly. ??? isosorbide dinitrate (ISORDIL) 40 MG tablet Take 1 tablet (40 mg total) by mouth 3 (three) times daily. Review of Systems: Pertinent items are noted in HPI. Physical Exam: Physical Exam Constitutional: General: He is not in acute distress. Appearance: Normal appearance. He is not toxic-appearing or diaphoretic. HENT: Head: Normocephalic and atraumatic. Nose: Nose normal. Mouth/Throat: Mouth: Mucous membranes are moist. Pharynx: Oropharynx is clear. Eyes: Extraocular Movements: Extraocular movements intact. Conjunctiva/sclera: Conjunctivae normal. Pupils: Pupils are equal, round, and reactive to light. Cardiovascular: Rate and Rhythm: Normal rate and regular rhythm. Heart sounds: Normal heart sounds. No murmur heard. No gallop. Pulmonary: Effort: Pulmonary effort is normal. No respiratory distress. Breath sounds: Normal breath sounds. Abdominal: General: Abdomen is flat. Bowel sounds are normal. There is no distension. Palpations: Abdomen is soft. Tenderness: There is no abdominal tenderness. There is no guarding. Musculoskeletal: General: Deformity present. No swelling. Normal range of motion. Cervical back: Normal range of motion and neck supple. Left lower leg: No edema. Comments: Left BKA Skin: General: Skin is warm and dry. Coloration: Skin is not pale. Findings: No erythema. Neurological: General: No focal deficit present. Mental Status: He is alert and oriented to person, place, and time. Cranial Nerves: No cranial nerve deficit. Motor: No weakness. Psychiatric: Mood and Affect: Mood normal. Behavior: Behavior normal. Judgment: Judgment normal. Vitals: Hemodynamic parameters reviewed for last 24 hours. Blood pressure (!) 139/95, pulse 68, temperature 97.9 ??F (36.6 ??C), temperature source Oral, resp. rate 20, height 1.854 m (6' 1 ), weight 92.8 kg (204 lb 8 oz), SpO2 96 %. Assessment and Plan: ?? *Acute on chronic systolic/diastolic CHF / NYHA class III stage D For volume overload with anasarca on admission LVEF 20 to 25% per OSH echo, 15% reported here as per ECHO 10/29/2023 *Scrotal edema *ASCVD History of prior PCI History of non-STEMI *VHD With aortic regurgitation and mitral regurgitation (echo pending) *Hypertension *Hyperlipidemia *Diabetes mellitus type 2 Insulin-dependent *Peripheral vascular disease History of left [id number] amputation (uses a prosthesis) *LECHUGA cirrhosis *COPD With acute on chronic hypoxemic respiratory failure *Noncompliance *KOKO on CKD stage IV *Cellulitis of the right calf Skin culture obtained on 730 showed Klebsiella and Enterobacter species *Low flow low gradient ?? PLAN: 10/31/2023 Labs and tele reviewed, NSVT last night, continue diuresis with monitoring of renal function. Discussed with , patient is not sure what medications he takes, he needs to be on GDMT (BB at least given his renal failure) and needs to show compliance, Also given cellulitis it would be most appropriate at this point to prescribe life vest and have him follow up as outpatient. 10/30/2023 Patient has been placed on GDMT, limitations of increasing and adding guideline directed medical therapy is his renal failure, will increase Toprol-XL dose. Echocardiogram here showed ejection fraction of 15% low-flow low gradient aortic stenosis, patient will require an ICD for primary prevention of sudden cardiac however given recent skin cultures that showed Klebsiella and Enterobacter species, will hold off until we are sure there is no ongoing infection, I examined his right leg which showed no open wounds. I will consider him for subcutaneous ICD once cellulitis/infection is addressed. Continue diuresis and management of congestive heart failure as per cardiology team, nephrology was consulted. 10/29/2023 Telemetry reviewed. Will obtain twelve-lead EKG. We will obtain complete echocardiogram. Agree with initiation of GDMT. Agree with diuresis. We will consult cardiology for assistance with CHF management. We will consult nephrology for assistance with KOKO on CKD. Monitor and replace electrolytes as needed to keep potassium level greater than 4.0 and magnesium greater than 2.0 at all times. BMP and magnesium level pending. Will check TSH and free T4. Discussed wit . Further recommendations pending testing results, clinical course, and response to therapy. Signed: Gilbert Dailey MD 10/31/2023 8:27 PM * Monika Pennington MD - 10/31/2023 4:30 PM EDT Subjective History of Present Illness: Patient is very poor historian Robert Hurley Jr. is a 58 y.o. male with history of CKD 4 with base creatinine close to ~3, DM,HTN,CHF, left AKA ,difficulty accessing health care resources and keeping follow ups,noncompliance??who presented to [facility] on 10/25 for evaluation of several days of worsening shortness ofbreath and scrotal edema. [facility] as above ,He had echocardiogram done showing EF of 20-25% and was transferred to [facility] for EP evaluation of AICD. ? Yesterday Labs at OSH showed wbc 3.5, hgb 10.5, plt 201, sodium 138, potassium 5.0, creatinine 3.3,mag 2.0. Nephrology was consulted for Renal failure and Volume management 10/30: resting on bed , no new issues Review of Systems Constitutional: Negative. HENT: Negative. Eyes: Negative. Respiratory: Positive for shortness of breath. Cardiovascular: Positive for leg swelling. Gastrointestinal: Negative. Genitourinary: Negative. Skin: Negative. Neurological: Positive for weakness. Psychiatric/Behavioral: Negative. Objective Last Recorded Vitals Blood pressure (!) 155/111, pulse 81, temperature 98.1 ??F (36.7 ??C), temperature source Oral, resp. rate 18, height 1.854 m (6' 1 ), weight 92.8 kg (204 lb 8 oz), SpO2 97 %. Physical Exam Constitutional: Appearance: Normal appearance. HENT: Head: Normocephalic and atraumatic. Nose: Nose normal. Mouth/Throat: Mouth: Mucous membranes are moist. Eyes: Extraocular Movements: Extraocular movements intact. Pupils: Pupils are equal, round, and reactive to light. Cardiovascular: Rate and Rhythm: Normal rate and regular rhythm. Heart sounds: Normal heart sounds. Pulmonary: Breath sounds: Normal breath sounds. Abdominal: General: Abdomen is flat. Palpations: Abdomen is soft. Musculoskeletal: Cervical back: Normal range of motion and neck supple. Skin: General: Skin is warm and dry. Neurological: Mental Status: He is alert and oriented to person, place, and time. Psychiatric: Mood and Affect: Mood normal. Behavior: Behavior normal. Labs: Results for orders placed or performed during the hospital encounter of 10/29/23 (from the past 24 hour(s)) Glucose, Nova Meter Status: None Collection Time: 10/30/23 4:33 PM Result Value Ref Range POC-GLUCOSE 99 70 - 110 mg/dL Loom Operator Apprentice [id number] Glucose, Nova Meter Status: None Collection Time: 10/30/23 8:43 PM Result Value Ref Range POC-GLUCOSE 73 70 - 110 mg/dL Loom Operator Apprentice [id number] Magnesium Status: Normal Collection Time: 10/31/23 4:36 AM Result Value Ref Range Magnesium 2.3 1.5 - 2.4 mg/dL Basic Metabolic Panel Status: Abnormal Collection Time: 10/31/23 4:36 AM Result Value Ref Range Sodium 137 136 - 146 meq/L Potassium 4.6 3.5 - 5.1 meq/L Chloride 101 (L) 102 - 112 meq/L CO2 31 21 - 32 meq/L Anion Gap 10 9 - 20 BUN 47 (H) 7 - 22 mg/dL Creatinine 3.38 (H) 0.70 - 1.30 mg/dL BUN/Creatinine 14 8 - 20 Glucose 132 (H) 74 - 106 mg/dL Calcium 9.1 8.4 - 10.1 mg/dL Osmolality Calc 287.9 eGFR (mL/min/1.73m2) 20 (L) >=60 mL/min/1.73m2 CBC - Hemogram (SJ-BKR) Status: Abnormal Collection Time: 10/31/23 4:36 AM Result Value Ref Range WBC 4.6 4.2 - 9.1 K/??L RBC 4.75 4.63 - 6.08 M/??L Hemoglobin 11.5 (L) 13.7 - 17.5 GM/DL Hematocrit 38.4 (L) 40.1 - 51.0 % MCV 81 79 - 92 fL MCH 24.2 (L) 25.7 - 32.2 pg MCHC 29.9 (L) 32.3 - 36.5 GM/DL RDW 16.6 (H) 11.6 - 14.4 % Platelets 241 140 - 375 K/CU MM MPV 11.2 9.4 - 12.4 fL Glucose, Nova Meter Status: Abnormal Collection Time: 10/31/23 7:53 AM Result Value Ref Range POC-GLUCOSE 131 (H) 70 - 110 mg/dL Loom Operator Apprentice [id number] Glucose, Nova Meter Status: Abnormal Collection Time: 10/31/23 12:13 PM Result Value Ref Range POC-GLUCOSE 207 (H) 70 - 110 mg/dL Loom Operator Apprentice [id number] XR chest AP portable Narrative: Name: ROBERT HURLEY JR. : 1965 CHEST SINGLE VIEW COMPARISON: Chest from 12 April 2015 HISTORY: Shortness of breath. FINDINGS: Cardiac silhouette is moderately enlarged. Lungs are underinflated. Mild interstitial opacities seen in both lungs, probably chronic. Impression: 1. Cardiomegaly and mild interstitial opacity favored to be chronic. Follow-up better inflated PA and lateral chest radiograph may be of value. Images reviewed, interpreted, and dictated by Stephon Cedillo MD ECHO COMPLETE (DOPPLER / COLOR) W OR WO CONTRAST TRANSTHORACIC ECHOCARDIOGRAPHY REPORT Demographics Patient Name: XAVI VANN : 1965 JR. Age: 58 year(s) Corporate ID Number: [id number] Gender Male Acetylene Burner: LILLIAN Phillip Height: 73 inches Referring Physician: KATHRYN CASTANEDA Weight: 206 pounds Interpreting GILBERT DAILEY MD BMI: 27.18 kg/m^2 Physician: Date of Service: 10/30/2023 Blood Pressure: 147/99 mmHg Room Number: 3158 Type of Study: TTE procedure: ECHO COMPLETE (DOPPLER / COLOR) W OR WO CONTRAST. Patient Status: Routine IP Study Location: [facility] Quality: Adequate visualization History/Tech Notes: Indication: shortness of breath R06.02 Impression: ######################################## Normal sized left ventricle. Moderate left ventricular hypertrophy. Visually estimated ejection fraction 15% +/- 5%. Abnormal left ventricular systolic function; abnormal systolic strain pattern. Increased left atrial pressure (Grade II diastolic dysfunction). Dilated right ventricle. Abnormal TAPSE; abnormal right ventricular function. Moderate (2+) mitral regurgitation. Mild aortic valve regurgitation. Suspect low-flow low-gradient aortic stenosis. Aortic stenosis likely underestimated due to low stroke volume index. 25.56ml/m2 Peak P.00mmHg Mean P.97mmHg . Dimensionless index: 0.47 . Moderate (2+) tricuspid regurgitation. Moderate pulmonary hypertension. Elevated central venous pressure (>15mmHg). ######################################## Measurements Summary: LVEDd: 5.28 cm LVESd: 4.56 cm IVSEd: 1.31 cm AO Root:2.82 cm LVPWd: 1.47 cm Contractility Score Global Left Ventricular Hypokinesis was noted. LV regional wall motion: (0-Not visualized 1-Normal 2-Hypokinesis 3-Akinesis 4-Dyskinesis 5-Aneurysm) Left Ventricle Peak E-wave: 0.82 Peak A-wave: 0.69 m/s E/A ratio: 1.2 m/s Volume [id number] LV length: 10.08 ml cm Volume [id number] ml LVOT diameter: 2.19 cm Normal sized left ventricle. Moderate left ventricular hypertrophy. Visually estimated ejection fraction 15% +/- 5%. Abnormal left ventricular systolic function; abnormal systolic strain pattern. Increased left atrial pressure (Grade II diastolic dysfunction). No left ventricular masses or thrombi. Right Ventricle Diastolic dimension: 5.49 RV systolic pressure: 51.72 mmHg cm Dilated right ventricle. Abnormal TAPSE; abnormal right ventricular function. Left Atrium LA dimension: 4.1 cm LA volume:87.91 ml LA/Aorta: 1.45 Mildly dilated left atrium. Abnormal left atrial volume index 40.32ml/m2. Intact atrial septum. No atrial mass or thrombus. Right Atrium Mildly dilated right atrium. Dilated IVC with no inspiratory collapse. Intact atrial septum. No atrial mass or thrombus. Mitral Valve Deceleration time: 146.29 msec MR velocity: 4.83 m/s Thickened leaflets; no stenosis. Mild mitral valve annulus calcification. Moderate (2+) mitral regurgitation. No mitral stenosis. No masses or vegetations seen. Aortic Valve AI P1/2t: Area continuity: Peak velocity: 1.94 m/s 1117.21 msec 1.75 cm^2 Peak gradient: 15.05 AV VTI: 31.76 cm Mean velocity: 1.24 mmHg LVOT VTI: 14.74 m/s Mean gradient: 7.12 mmHg cm Deceleration time: 3852.45 msec Three cusped aortic valve Calcified aortic valve leaflets. Aortic annulus calcification. Mild aortic valve regurgitation. Moderately restricted aortic valve opening of the RCC and NCC. Suspect low-flow low-gradient aortic stenosis. Aortic stenosis likely underestimated due to low stroke volume index. 25.56ml/m2 Peak P.00mmHg Mean P.97mmHg . Dimensionless index: 0.47 . No masses or vegetations seen. Tricuspid Valve TR velocity: 3.03 m/s TR gradient: 36.7236 mmHg Estimated RAP: 15 mmHg RVSP: 51.78 mmHg Thick tricuspid valve leaflets. Moderate (2+) tricuspid regurgitation. Moderate pulmonary hypertension. No tricuspid stenosis. No masses or vegetations seen. Pulmonic Valve PASP: 51.72 mmHg Structurally normal pulmonic valve. Abnormal pulmonary acceleration time. Mild pulmonic regurgitation. No pulmonic stenosis. No masses or vegetations seen. Great Vessels Aorta Aortic Root: 2.82 cm Ascending Aorta: 3.44 cm LVOT Diameter: 2.19 cm Visualized aorta is normal. Normal aortic root. No evidence of dissection. Dilated IVC with no inspiratory collapse. Elevated central venous pressure (>15mmHg). Pericardium / Pleura No pericardial effusion. Assessment 1. Acute on chronic CKD stage IV, secondary to cardiorenal syndrome type I 2. Chronic kidney disease stage IV secondary to type II cardiorenal syndrome/hypertensive nephrosclerosis and diabetic nephropathy Repeated Echo with EF:~10-15 % 3. Volume overload 4. Anemia 5. Acute combined systolic and diastolic exacerbation of CHF with repeated ejection fraction of 10-15% 6. Type 2 diabetes 7. Peripheral vascular disease/coronary artery disease 8. Hypertension 9. History of COPD Plan -Optimization of cardiac function as per cardiology, patient is on cardioprotective medications -Continue with loop diuretics to Bumex 2 mg p.o. daily for now and this can be adjusted as needed depending on the urine output -Creatinine 3.3 close to base, electrolytes are okay -Avoid nephrotoxins, keep MAP above 65 -Strict intake and output -Renally dose medications -No need for CONSTRUCTION ENGINEERING MANAGER at present time -Thanks for consultation for along with you ?? [facility] [address] [place], [place], [address] Phone #[phone] Fax #[phone] High complex case * Nohelia José Manuelsuzanne, DO - 10/31/2023 10:07 AM EDT T[facility] HOSPITALIST PROGRESS NOTE Patient: Robert Hurley Jr. Date: 10/31/2023 Subjective CC: scrotal edema Date of Service: 10/31/2023 Patient seen and examined at bedside this AM with RN present. Therapy working with patient helping to get him cleaned up. He is sitting on the side of the bed. His main complaint is itching back,he tells me that he has itching frequently. Sob improved, scrotal edema improved. Objective Vitals: Temp: [97.5 ??F (36.4 ??C)-98.1 ??F (36.7 ??C)] 98.1 ??F (36.7 ??C) Pulse: [65-81] 81 Resp: [16-20] 18 BP: (123-155)/(93-111) 155/111 Intake/Output: Intake/Output Summary (Last 24 hours) at 10/31/2023 1007 Last data filed at 10/30/2023 2100 Gross per 24 hour Intake 240 ml Output 1000 ml Net -760 ml Physical exam: General: Alert and oriented, no acute distress, appears older than stated age, sitting up on side of bed. Neurologic: Awake, alert, and oriented X3, no apparent focal deficits Lungs: Clear to auscultation, non-labored respiration, on nc, no wheezing or rhonchi Heart: Normal rate, regular rhythm, right calf trace edema Abdomen: Soft, non-tender, non-distended, normal bowel sounds Musculoskeletal: left AKA present Skin: Skin is warm and dry, patchy erythema to lower back. Right foot with dry skin and scaling, right foot edema present, thickened toenails on right, no open ulcers on right. Psychiatric: Cooperative, appropriate mood and affect Labs: Results for orders placed or performed during the hospital encounter of 10/29/23 (from the past 24 hour(s)) Glucose, Nova Meter Status: Abnormal Collection Time: 10/30/23 11:15 AM Result Value Ref Range POC-GLUCOSE 117 (H) 70 - 110 mg/dL Loom Operator Apprentice [id number] Glucose, Nova Meter Status: None Collection Time: 10/30/23 4:33 PM Result Value Ref Range POC-GLUCOSE 99 70 - 110 mg/dL Loom Operator Apprentice [id number] Glucose, Nova Meter Status: None Collection Time: 10/30/23 8:43 PM Result Value Ref Range POC-GLUCOSE 73 70 - 110 mg/dL Loom Operator Apprentice [id number] Magnesium Status: Normal Collection Time: 10/31/23 4:36 AM Result Value Ref Range Magnesium 2.3 1.5 - 2.4 mg/dL Basic Metabolic Panel Status: Abnormal Collection Time: 10/31/23 4:36 AM Result Value Ref Range Sodium 137 136 - 146 meq/L Potassium 4.6 3.5 - 5.1 meq/L Chloride 101 (L) 102 - 112 meq/L CO2 31 21 - 32 meq/L Anion Gap 10 9 - 20 BUN 47 (H) 7 - 22 mg/dL Creatinine 3.38 (H) 0.70 - 1.30 mg/dL BUN/Creatinine 14 8 - 20 Glucose 132 (H) 74 - 106 mg/dL Calcium 9.1 8.4 - 10.1 mg/dL Osmolality Calc 287.9 eGFR (mL/min/1.73m2) 20 (L) >=60 mL/min/1.73m2 CBC - Hemogram (SJ-BKR) Status: Abnormal Collection Time: 10/31/23 4:36 AM Result Value Ref Range WBC 4.6 4.2 - 9.1 K/??L RBC 4.75 4.63 - 6.08 M/??L Hemoglobin 11.5 (L) 13.7 - 17.5 GM/DL Hematocrit 38.4 (L) 40.1 - 51.0 % MCV 81 79 - 92 fL MCH 24.2 (L) 25.7 - 32.2 pg MCHC 29.9 (L) 32.3 - 36.5 GM/DL RDW 16.6 (H) 11.6 - 14.4 % Platelets 241 140 - 375 K/CU MM MPV 11.2 9.4 - 12.4 fL Glucose, Nova Meter Status: Abnormal Collection Time: 10/31/23 7:53 AM Result Value Ref Range POC-GLUCOSE 131 (H) 70 - 110 mg/dL Loom Operator Apprentice [id number] Radiology: Radiology Results (last 3 days) Procedure Component Value Units Date/Time XR chest AP portable [[id number]] Collected: 10/30/23 1454 Order Status: Completed Updated: 10/30/23 1531 Narrative: Name: ROBERT HURLEY JR. : 1965 CHEST SINGLE VIEW COMPARISON: Chest from 12 April 2015 HISTORY: Shortness of breath. FINDINGS: Cardiac silhouette is moderately enlarged. Lungs are underinflated. Mild interstitial opacities seen in both lungs, probably chronic. Impression: 1. Cardiomegaly and mild interstitial opacity favored to be chronic. Follow-up better inflated PA and lateral chest radiograph may be of value. Images reviewed, interpreted, and dictated by Stephon Cedillo MD Medications: Scheduled Meds: ??? aspirin 81 mg oral Daily 81 mg at 10/31/23 0808 ??? atorvastatin 80 mg oral Every Night 80 mg at 10/30/232120 ??? bumetanide 2 mg intravenous BID 2 mg at 10/31/23 0808 ??? cefTRIAXone 1 g intravenous Q24H IVPB Stopped at 10/30/23 1800 ??? [Held by provider] empagliflozin 10 mg oral Daily 10 mg at 10/30/23 0831 ??? guaiFENesin 600 mg oral BID 600 mg at 10/31/23 0808 ??? heparin 5,000 Units subcutaneous Q12H 5,000 Units at 10/31/23 0807 ??? hydrALAZINE 10 mg oral Q8H ??? hydrocortisone topical BID ??? insulin glargine 10 Units subcutaneous Every Night 10 Units at 10/29/232120 ??? insulin lispro 0-18 Units subcutaneous 4x Daily AC 3 Units at 10/29/23 2218 ??? isosorbide dinitrate 10 mg oral TID 10 mg at 10/31/23 0912 ??? loratadine 10 mg oral Daily ??? melatonin 3 mg oral Every Night 3 mg at 10/30/232120 ??? metoprolol succinate 75 mg oral Daily 75 mg at 10/31/23 0807 ??? nicotine 1 patch transdermal Daily ??? [Held by provider] sacubitriL-valsartan 1 tablet oral BID 1 tablet at 10/30/23 0831 Continuous Infusions: PRN Meds: ??? acetaminophen ??? dextrose ??? glucagon ??? glucose ??? hydrOXYzine ??? ipratropium-albuteroL ??? ondansetron Or ??? ondansetron PF ??? oxyCODONE ??? oxyCODONE Assessment and Plan Acute on chronic HFrEF - ef of 20-25% on echo at OSH - metoprolol increased - entresto and jardiance on hold due to renal function - increase bumex to bid dosing - cardiology consult appreciated. - strict I&O - CHF admission order set used - hold on spironolactone due to hyperkalemia - he came to [facility] for EP eval for AICD, d/w dr dailey yesterday, no plans for AICD at this time due to right leg cellulitis Pruritis, worse - add topical hydrocortisone to back - add prn hydroxyzine Scrotal edema, improved - from above - no open abscess or lesions - does not need urology consult at this time ?? LEFT AKA - s/p LEFT AKA 3 years ago - has prosthesis, consult pt/ot Diabetes mellitus - continue ssi and lantus LECHUGA cirrhosis - noted CKD 4 - monitor renal function with diuresis, creatinine 3.3 at OSH on 10/28 - creatinine 3.38 today - nephrology consult pending ?? Cellulitis right calf - right calf with chronic skin wound and cellulitis, skin culture from [facility] on 10/25 showed klebsiella and enterobacter- sensistive to all but amp/cefazolin/cefoxitin. - no open ulcers or drainage, I am unsure what the other hospital cultured. - started empiric rocephin on 10/28 for a few days while in hospital - consult wound care ?? Suspected COPD - nebs prn Chronic hypoxic resp failure? - possible on home o2 from private pay? - continue NC and monitor Diet: Orders Placed This Encounter Procedures ??? Consistent Carbohydrate Additional Modifiers: Heart Healthy, 2 gram Sodium Code Status: Current Code Status Full code Medical Decision Making: High complexity medical decision making required due to chf exac, per patient scrotal edema improved, not examined bc working with therapy. Add medications for pruritis, increased bumex. Cards/nephro/ep consults appreciated. Discharge Planning: Barriers to discharge: above Expected (tentative) discharge in 2-3 days Expected discharge disposition (home, SNF/Rehab, etc): home Discussed with nurse and case management. Signed: Nohelia Santos Physician Hospitalist Pager [phone] 10/31/2023, 10:12 AM * Ruth Ann Manjarrez, PT - 10/31/2023 9:25 AM EDTSummary: EVAL Images from the original note were not included. Inpatient Physical Therapy Initial Evaluation Patient Name: Robert Hurley Jr. Date of : 1965 Date of Evaluation: 10/31/23 In Time 08:48 Out Time 09:25 Session Duration 37 minutes Time spent for nursing collaboration, chart and systems review, and clinical reasoning. 10 minutes Total Time 47 minutes Pt is a 58 y.o. male admitted on 10/29/2023 with Acute on chronic diastolic CHF (congestive heart failure) ([facility]) [I50.33]. Past 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: Diagnosis Date ??? CHF (congestive heart failure) (HCC) ??? CKD (chronic kidney disease) ??? COPD (chronic obstructive pulmonary disease) (HCC) ??? Hx of AKA (above knee amputation), left (HCC) No past surgical history on file. General Visit Type: Initial Evaluation Approved By: Nurse Otero Patient Disposition Upon Entry: Supine in bed, Call Light/Pull Cord in reach, All needs met and within reach, Nursing aware/notified, Side rails up Patient Verified By: Name and Date of Co-treated by: Shakira RANGEL Assisted by: dealer support technician, PT student Dennis Precautions Weight-Bearing Status: No Restrictions Precautions: Fall risk Isolation Precautions: Standard Lines, tubes, drains, airway: nasal cannula Subjective Subjective: Patient agreeable to physical therapy evaluation and treatment. Pain Yes. 10/05 in groin area - nursing gave meds following session Cognition Overall cognitive status: WFL Orientation Level: Oriented x4 Following commands: Follows one step commands consistently Safety Judgment: Good awareness of safety precautions Home Living Lives with: Alone Home Type: Apartment Home Layout: One level Stairs to enter: 3 step(s) Stairs inside home: none Home Equipment: Rolling walker, Quad cane, Manual wheelchair Functional Mobility PLOF: Patient reports being complete independent with all functional mobility prior to onset. Activities of Daily Living PLOF: Patient reports being complete independent with all ADL's prior toonset. Objective Vitals Stable Basic Strength Assessment BUE, RLE decreased Range of Motion Assessment WFL for all extremities Sensation NT Coordination NT Functional Mobility Bed Mobility Rolling Left: modified independent Rolling Right: modified independent Supine to Sit: modified independent Transfers Patient declined to attempt this date. Gait Patient declined to attempt this date. Stair Management Patient declined to attempt this date. Wheelchair Mobility Patient declined to attempt this date. Outcome Measures NT AM-PAC Basic Mobility Inpatient Short Form How much difficulty does the patient currently have: Turning over in bed (including adjusting bedclothes, sheets, and blankets)? (1) Total/Unable (not able to do the activity or can only perform the activity using assistive devices or requires assistance from another person, including supervision or cueing for safety) Sitting down on and standing up from a chair with arms (e.g., wheelchair, bedside commode, etc.)? (1) Total/Unable (not able to do the activity or can only perform the activity using assistive devices or requires assistance from another person, including supervision or cueing for safety) Moving from lying on back to sitting on side of bed? (1) Total/Unable (not able to do the activity or can only perform the activity using assistive devices or requires assistance from another person,including supervision or cueing for safety) How much help from another person does the patient currently need: Moving to and from a bed to a chair (including a wheelchair)? (1) Total/Unable (Total assist/dependent) Need to walk in hospital room? (1) Total/Unable (Total assist/dependent) Climbing 3-5 steps with a railing? (1) Total/Unable (Total assist/dependent) Score Raw score=6 t-Scale score=23.55 Standard error=4.57 CMS 0-100%=100.00% MDC=4.72 A raw score of >= 16 is significantly associated with increased odds of discharge to home in addition to consideration made for the patient's cognition and social determinants of health. Balance Sitting balance good to normal, Standing balance unassessed due to pt declining Activity Tolerance Patient tolerated activity/intervention well with no complaints or adverse events. Treatment Pt started supine in bed, then proceeded to roll left then right in order for PT/OT/Tech to change sheets. Pt then sat up to edge of bed with RLE on ground for OT to clean and MD to analyze rash on pt's back and receive meds from RN. Pt then returned to supine in bed. All assistance levels noted above. Assessment Pt accomplished all tasks with ease and no signs of fatigue. Pt would benefit from continued therapy to increase strength, gait tolerance, and safety with ADLs. Problems: Decreased functional mobility, Decreased gait tolerance, Decreased strength, Impaired standing balance, Impaired dynamic balance Rehab potential: Good for stated goals Plan Treatment Plan: Therapeutic Exercise, Therapeutic Activity, Gait Training, Transfer Training, Wheelchair Management/Mobility Training PT Frequency/Duration: 5x/week for 14 days Recommendations Discharge recommendations: Patient would benefit from 1-2 hours of multidisciplinary therapy per day upon discharge from acute care setting to assist with returning to prior level of functioning. DME recommendations: Patient would benefit from the use of a Hospital bed upon discharge. Per the patient, the patient does not have access to the recommended DME/adaptive equipment. Goals Supine to/from sit: Complete ind Gait: complete 50' with min A x1 with RWx without prosthesis Stair Negotiation: complete 3 steps with Min A x1 with RWx without prosthesis Transfer: complete Calista with RWx bed to/from WC Target Date: 11/14/2023 Goals were discussed with patient Education Patient educated on safety, role of physical therapy, transfers and bed mobility and following, they were able to verbalize understanding. No further questions or concerns stated. Patient Disposition Upon Leaving Supine in bed, Call Light/Pull Cord in reach, All needs met and within reach, Nursing aware/notified, Side rails up, tray table in front If this patient discharges prior to next therapy session, this note serves as the patient's discharge summary. (PT/[employer] student assisted with the treatment of this patient under the direct supervision of the Physical Therapist. PT is dropping 5 zero charges for multimedia author supervision of PT/[employer] student this date) Electronically signed by Ruth Ann Manjarrez, PT - 10/31/23 - 10:04 AM EDT * Shakira Duran OTR/Ann - 10/31/2023 9:24 AM EDT Images from the original note were not included. Inpatient Occupational Therapy Initial Evaluation Patient Name: Rboert Hurley Jr. Date of : 1965 Date of Evaluation: 10/31/23 Start Time: 8:48 Stop Time: 9:24 Session Duration: 36 minutes Total time: 46 minutes spent, including 10 minutes for nursing collaboration, thorough chart and systems review, and clinical reasoning. This patient is a 58 y.o. male admitted on 10/29/2023 with Acute on chronic diastolic CHF (congestiveheart failure) (HCC) [I50.33]. Past 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: Diagnosis Date ??? CHF (congestive heart failure) ([facility]) ??? CKD (chronic kidney disease) ??? COPD (chronic obstructive pulmonary disease) ([facility]) ??? Hx of AKA (above knee amputation), left ([facility]) No past surgical history on file. General Visit Type: Initial Evaluation Approved By: Nurse Otero Patient Disposition Upon Entry: Supine in bed, Call Light/Pull Cord in reach, All needs met and within reach, Nursing aware/notified, Side rails up Patient Verified By: Name and Date of Co-treated by: PT student Assisted by: dealer support technician ?? Precautions Weight-Bearing Status: No Restrictions Precautions: Fall risk Isolation Precautions: Standard Lines, tubes, drains, airway: nasal cannula Comment: Ann MANZO. Has his prosthetic in room. Subjective Subjective: Pt agreeable Pain 7/10 pain from scrotal swelling. Cognition Overall cognitive status: WFL Orientation Level: Oriented x4 Following commands: Follows one step commands consistently Safety Judgment: Good awareness of safety precautions Vision/Hearing History Visual/Hearing History: Current Vision: No visual deficits Current Hearing: No hearing deficits Home Living Lives with: Alone Home Type: Apartment Home Layout: One level Stairs to enter: 3 step(s) Stairs inside home: none Home Equipment: Rolling walker, Quad cane, Manual wheelchair Bathroom layout: Sink baths only Functional Mobility PLOF: Patient reports being modified independent with all functional mobility prior to onset with use of prosthetic and rolling walker Activities of Daily Living PLOF: Patient reports being complete independent with all ADL's prior toonset. Objective Vitals Heart rate: 81 beats per minute Blood pressure: 155/111 mmHg O2 (L/min): 3 (L/min) nasal cannula Comment: On 3 L/min at home Range of Motion Assessment Patient's ROM is within functional limits in bilateral upper extremities Strength Assessment Patient's strength is within functional limits in bilateral upper extremities Bed Mobility Rolling: Supervision, Head of bed flat Supine to sit: Supervision, Head of bed elevated Sit to supine: Supervision, Head of bed flat Transfers Pt declined to attempt. ADLs Feeding:Independent Patient is a feeder: No Grooming:Setup Bathing:Moderate Assistance Upper body dressing:Setup Lower body dressing:Maximal Assistance Toileting:Total Assistance Outcome Measures [facility] Daily Living Functional Assessment How much help from another person does the patient currently need: Putting on and taking off regular lower body clothing? 2 Bathing, including washing, rinsing, and drying? 2 Toileting, including using toilet, bedpan or urinal? 1 Putting on and taking off regular upper body clothing? 3 Taking care of personal grooming such as brushing teeth? 3 Eating meals? 4 1=Total/Unable (Total assist/Dependent) 2=A lot (Maximal/Moderate assist) 3=A little (Minimal/Contact guard/Supervision/Setup) 4=None (Modified independent/Independent) The patient's [facility] raw score is 15. The patient currently has 56.46% functional impairment. A raw score of >= 19 is significantly associated with increased odds of discharge to home in addition to consideration made for the patient's cognition and social determinants of health. Balance Static sitting balance:Good: Patient able to maintain balance without handheld support; limited postural sway Dynamic sitting balance:Fair: Patient accepts minimal challenge; able to maintain balance while turning head/trunk Activity Tolerance Patient limited with activity/intervention due to pain, fatigue and weakness Treatment Pt semi supine at beginning of session. Pt able to answer all interview questions without difficulty. Pt's bed noted to be soiled. Pt agreeable to bed change. Pt able to roll L and R with supervisionwhile linens were changed. Pt required total assist to doff shorts. Pt transitioned from supine to sitting EOB with supervision. Pt able to doff shirt with supervision. Pt completed grooming and upper body bathing with setup. Deodorant application with setup completed next. Clean hospital gown donned with setup. Pt able to sit statically with supervision for ~15 minutes for ADL routine. OT thoroughly washed patients back and applied lotion, as pt reports that chief complaint is itchiness. MD not ified. Pt returned to supine with supervision. Pt left in semi supine, CL in lap, all needs met. RNentering room at the end of session. Assessment Assessment Pt presents with the deficits outlined above. These deficits will limit his I in home environment. Recommending that pt is seen by OT services during acute care stay with then transition to rehab prior to returning home. Problems: Difficulty with ADLs, Fall risk, Impaired endurance, Impaired functional mobility, Lack of knowledge of adaptive equipment options Rehab potential: Good for stated goals Plan Recommendations Discharge recommendations: Patient would benefit from 1-2 hours of multidisciplinary therapy per day upon discharge from acute care setting to assist with returning to prior level of functioning. DME recommendations: Patient would benefit from hospital bed at discharge. Treatment Plan: Adaptive equipment training, ADL training, Co-treat with physical therapy, DME recommendations , Energy conservation instruction, Functional mobility/transfer training, Home program instruction, Other activities to increase UE function, Patient/family/caregiver education, Precautioneducation/training, Safety training, Strengthening OT Frequency/Duration: 3x/week for 14 days Goals Bathing:sponge bath seated with modified independence. Lower body dressing: donning and doffing lower body clothing, at bed level with modified independence. Functional transfers: stand pivot transfer, with rolling walker with modified independence. Target Date: 11/14/2023 Goals were discussed with patient Education Patient educated on safety, use of call light, role of occupational therapy, patient's plan of care, ADLs, functional mobility and following, they were able to verbalize understanding, nod head to understanding. Patient Disposition Upon Leaving Sitting upright in bed, Call Light/Pull Cord in reach, All needs met and within reach, Nursing at bedside, Side rails up, tray table in front If this patient discharges prior to next therapy session, this note serves as the patient's discharge summary. Electronically signed by LIZZY Burton - 10/31/2023 - 1:32 PM EDT * Kacy Montez MD - 10/31/2023 4:18 AM EDT [facility] - Consult Note Subjective: Shortness of breath has improved Health Status: Allergies Penicillin Home Medications: Prior to Admission medications Medication Sig Start Date End Date Taking? Authorizing Provider dapagliflozin propanediol (FARXIGA) 10 mg tablet Take 1 tablet (10 mg total) by mouth daily. Yes Historical Provider, albuterol HFA (VENTOLIN HFA) 90 mcg/actuation inhaler Inhale 1 puff by mouth via inhaler every 6 (six) hours as needed for wheezing. Historical Provider, aspirin 81 MG EC tablet Take 1 tablet (81 mg total) by mouth daily. Historical Provider, atorvastatin (LIPITOR) 80 MG tablet Take 1 tablet (80 mg total) by mouth nightly. Historical Provider, carvediloL (COREG) 12.5 MG tablet Take 1 tablet (12.5 mg total) by mouth 2 (two) times daily with breakfast and dinner. Historical Provider, clopidogreL (PLAVIX) 75 mg tablet Take 1 tablet (75 mg total) by mouth daily Look-alike/Sound-alike medication. Historical Provider, furosemide (LASIX) 40 MG tablet Take 1 tablet (40 mg total) by mouth daily as needed (Edema). Historical Provider, gabapentin (NEURONTIN) 600 MG tablet Take 1 tablet (600 mg total) by mouth 3 (three) times daily. Historical Provider, hydrALAZINE (APRESOLINE) 50 MG tablet Take 1 tablet (50 mg total) by mouth 3 (three) times daily Look-alike/Sound-alike medication. Historical Provider, insulin detemir U-100 (LEVEMIR) 100 unit/mL (3 mL) InPn injection Inject 0.13 mLs (13 Units total) subcutaneously nightly. Historical Provider, isosorbide dinitrate (ISORDIL) 40 MG tablet Take 1 tablet (40 mg total) by mouth 3 (three) times daily. Historical Provider, Past 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: Pt has a past medical history of CHF (congestive heart failure) ([facility]), CKD (chronic kidney disease), COPD (chronic obstructive pulmonary disease) ([facility]), and AKA (above knee amputation), left ([facility]). Surgical History: left heart catheterization Tobacco History Pt reports that he has been smoking cigarettes. He has never used smokeless tobacco. Alcohol History Pt reports that he does not currently use alcohol. Drug Use History Pt reports no history of drug use. Family History Noncontributory OBJECTIVE Vital ranges lat 24 hours Temp: [97.5 ??F (36.4 ??C)-98.1 ??F (36.7 ??C)] 97.5 ??F (36.4 ??C) Pulse: [65-73] 65 Resp: [16-20] 20 BP: (123-155)/(93-103) 150/101 Intake and Output 24 hours: Intake/Output Summary (Last 24 hours) at 10/31/2023817 Last data filed at 10/30/2023 2100 Gross per 24 hour Intake 480 ml Output 1400 ml Net -920 ml Net I&O this admission: Net IO Since Admission: -1,020 mL [10/31/23817] PHYSICAL EXAMINATION General: AOx3, in no acute distress HEENT: atraumatic and normocephalic, no conjunctival injection, no icterus Neck: supple, no JVD Chest/Resp: Chest is clear bilaterally. Cardio: S1 and S2 normal, systolic murmur, l Abdomen/GI: The abdomen is soft without tenderness Extremities: ++ edema, left above-knee amputation. Skin: no rashes Neuro: no focal neurologic deficits grossly AOx3 Inpatient Medications aspirin, 81 mg, oral, Daily atorvastatin, 80 mg, oral, Every Night bumetanide, 2 mg, intravenous, BID cefTRIAXone, 1 g, intravenous, Q24H [Held by provider] empagliflozin, 10 mg, oral, Daily guaiFENesin, 600 mg, oral, BID heparin, 5,000 Units, subcutaneous, Q12H insulin glargine, 10 Units, subcutaneous, Every Night insulin lispro, 0-18 Units, subcutaneous, 4x Daily AC melatonin, 3 mg, oral, Every Night metoprolol succinate, 75 mg, oral, Daily nicotine, 1 patch, transdermal, Daily [Held by provider] sacubitriL-valsartan, 1 tablet, oral, BID Results Review: Labs: WBC Date Value Ref Range Status 10/31/2023 4.6 4.2 - 9.1 K/??L Final 10/30/2023 4.5 4.2 - 9.1 K/??L Final 07/20/2019 5.2 3.9 - 10.0 K/uL Final Hemoglobin Date Value Ref Range Status 10/31/2023 11.5 (L) 13.7 - 17.5 GM/DL Final 10/30/2023 10.5 (L) 13.7 - 17.5 GM/DL Final Hgb Date Value Ref Range Status 07/20/2019 14.7 13.7 - 17.5 Gram/dL Final Comment: No Hemoglobin reference ranges defined for patients with an ???Unknown?? gender. Please apply existing Male/Female reference ranges as clinically indicated. Assay HGB Male 0 Days 1 Months 12 23 Female 0 Days 1 Months 12 23 Male 1 Months 2 Years 10 14 Female 1 Months 2 Years 10 14 Male 2 Years 12 Years 11 16 Female 2 Years 12 Years 11 16 Male 12 Years 150 Years 13.7 17.5 Female 12 Years 150 Years 11.2 15.7 Platelets Date Value Ref Range Status 10/31/2023 241 140 - 375 K/CU MM Final 10/30/2023 231 140 - 375 K/CU MM Final Creatinine Date Value Ref Range Status 10/31/2023 3.38 (H) 0.70 - 1.30 mg/dL Final 10/30/2023 3.35 (H) 0.70 - 1.30 mg/dL Final Creatinine Level Date Value Ref Range Status 07/20/2019 0.98 0.70 - 1.30 mg/dL Final BUN Date Value Ref Range Status 10/31/2023 47 (H) 7 - 22 mg/dL Final 10/30/2023 43 (H) 7 - 22 mg/dL Final Blood Urea Nitrogen Date Value Ref Range Status 07/20/2019 25 (H) 7 - 22 mg/dL Final Potassium Date Value Ref Range Status 10/31/2023 4.6 3.5 - 5.1 meq/L Final 10/30/2023 4.8 3.5 - 5.1 meq/L Final Sodium Date Value Ref Range Status 10/31/2023 137 136 - 146 meq/L Final 10/30/2023 138 136 - 146 meq/L Final Magnesium Date Value Ref Range Status 10/31/2023 2.3 1.5 - 2.4 mg/dL Final 10/30/2023 2.4 1.5 - 2.4 mg/dL Final 10/29/2023 2.3 1.5 - 2.4 mg/dL Final AST Date Value Ref Range Status 10/30/2023 34 5 - 37 U/L Final ALT Date Value Ref Range Status 10/30/2023 15 (L) 16 - 61 U/L Final Alkaline Phosphatase Date Value Ref Range Status 10/30/2023 171 (H) 27 - 136 U/L Final TSH Date Value Ref Range Status 10/29/2023 2.420 0.358 - 3.740 uIU/mL Final Imaging: XR chest AP portable Narrative: Name: ROBERT HURLEY JR. : 1965 CHEST SINGLE VIEW COMPARISON: Chest from 12 April 2015 HISTORY: Shortness of breath. FINDINGS: Cardiac silhouette is moderately enlarged. Lungs are underinflated. Mild interstitial opacities seen in both lungs, probably chronic. Impression: 1. Cardiomegaly and mild interstitial opacity favored to be chronic. Follow-up better inflated PA and lateral chest radiograph may be of value. Images reviewed, interpreted, and dictated by Stephon Cedillo MD ECHO COMPLETE (DOPPLER / COLOR) W OR WO CONTRAST TRANSTHORACIC ECHOCARDIOGRAPHY REPORT Demographics Patient Name: XAVI VANN : 1965 Age: 58 year(s) Corporate ID Number: [id number] Gender Male Acetylene Burner: LILLIAN Phillip Height: 73 inches Referring Physician: KATHRYN CASTANEDA Weight: 206 pounds Interpreting GILBERT DAILEY MD BMI: 27.18 kg/m^2 Physician: Date of Service: 10/30/2023 Blood Pressure: 147/99 mmHg Room Number: 3158 Type of Study: TTE procedure: ECHO COMPLETE (DOPPLER / COLOR) W OR WO CONTRAST. Patient Status: Routine IP Study Location: PortableTechnical Quality: Adequate visualization History/Tech Notes: Indication: shortness of breath R06.02 Impression: ######################################## Normal sized left ventricle. Moderate left ventricular hypertrophy. Visually estimated ejection fraction 15% +/- 5%. Abnormal left ventricular systolic function; abnormal systolic strain pattern. Increased left atrial pressure (Grade II diastolic dysfunction). Dilated right ventricle. Abnormal TAPSE; abnormal right ventricular function. Moderate (2+) mitral regurgitation. Mild aortic valve regurgitation. Suspect low-flow low-gradient aortic stenosis. Aortic stenosis likely underestimated due to low stroke volume index. 25.56ml/m2 Peak P.00mmHg Mean P.97mmHg . Dimensionless index: 0.47 . Moderate (2+) tricuspid regurgitation. Moderate pulmonary hypertension. Elevated central venous pressure (>15mmHg). ######################################## Measurements Summary: LVEDd: 5.28 cm LVESd: 4.56 cm IVSEd: 1.31 cm AO Root:2.82 cm LVPWd: 1.47 cm Contractility Score Global Left Ventricular Hypokinesis was noted. LV regional wall motion: (0-Not visualized 1-Normal 2-Hypokinesis 3-Akinesis 4-Dyskinesis 5-Aneurysm) Left Ventricle Peak E-wave: 0.82 Peak A-wave: 0.69 m/s E/A ratio: 1.2 m/s Volume [id number] LV length: 10.08 ml cm Volume [id number] ml LVOT diameter: 2.19 cm Normal sized left ventricle. Moderate left ventricular hypertrophy. Visually estimated ejection fraction 15% +/- 5%. Abnormal left ventricular systolic function; abnormal systolic strain pattern. Increased left atrial pressure (Grade II diastolic dysfunction). No left ventricular masses or thrombi. Right Ventricle Diastolic dimension: 5.49 RV systolic pressure: 51.72 mmHg cm Dilated right ventricle. Abnormal TAPSE; abnormal right ventricular function. Left Atrium LA dimension: 4.1 cm LA volume:87.91 ml LA/Aorta: 1.45 Mildly dilated left atrium. Abnormal left atrial volume index 40.32ml/m2. Intact atrial septum. No atrial mass or thrombus. Right Atrium Mildly dilated right atrium. Dilated IVC with no inspiratory collapse. Intact atrial septum. No atrial mass or thrombus. Mitral Valve Deceleration time: 146.29 msec MR velocity: 4.83 m/s Thickened leaflets; no stenosis. Mild mitral valve annulus calcification. Moderate (2+) mitral regurgitation. No mitral stenosis. No masses or vegetations seen. Aortic Valve AI P1/2t: Area continuity: Peak velocity: 1.94 m/s 1117.21 msec 1.75 cm^2 Peak gradient: 15.05 AV VTI: 31.76 cm Mean velocity: 1.24 mmHg LVOT VTI: 14.74 m/s Mean gradient: 7.12 mmHg cm Deceleration time: 3852.45 msec Three cusped aortic valve Calcified aortic valve leaflets. Aortic annulus calcification. Mild aortic valve regurgitation. Moderately restricted aortic valve opening of the RCC and NCC. Suspect low-flow low-gradient aortic stenosis. Aortic stenosis likely underestimated due to low stroke volume index. 25.56ml/m2 Peak P.00mmHg Mean P.97mmHg . Dimensionless index: 0.47 . No masses or vegetations seen. Tricuspid Valve TR velocity: 3.03 m/s TR gradient: 36.7236 mmHg Estimated RAP: 15 mmHg RVSP: 51.78 mmHg Thick tricuspid valve leaflets. Moderate (2+) tricuspid regurgitation. Moderate pulmonary hypertension. No tricuspid stenosis. No masses or vegetations seen. Pulmonic Valve PASP: 51.72 mmHg Structurally normal pulmonic valve. Abnormal pulmonary acceleration time. Mild pulmonic regurgitation. No pulmonic stenosis. No masses or vegetations seen. Great Vessels Aorta Aortic Root: 2.82 cm Ascending Aorta: 3.44 cm LVOT Diameter: 2.19 cm Visualized aorta is normal. Normal aortic root. No evidence of dissection. Dilated IVC with no inspiratory collapse. Elevated central venous pressure (>15mmHg). Pericardium / Pleura No pericardial effusion. Problem list: Principal Problem: Acute on chronic diastolic CHF (congestive heart failure) ([facility]) Impression and Plan: IMPRESSION: * Acute combined systolic and diastolic heart failure with reduced ejection fraction, stage C, NYHAclass III A. EF 20-25% per echocardiogram at outside facility * Atherosclerotic cardiovascular disease with history of PCI * Valvular heart disease history of AR/MR * Hypertension * Dyslipidemia * Diabetes mellitus type 2 * Peripheral vascular disease with history of AKA * LECHUGA cirrhosis * KOKO on CKD stage IV * COPD * History of medical noncompliance PLAN: 10/31/2023 -Would recommend to continue IV diuresis with Bumex 2 mg twice daily, close monitoring of ins and outs, electrolytes, renal function -Replace potassium and magnesium, keep potassium between 4 and 5, magnesium above 2 -Acute kidney injury, worsening renal function, would recommend to hold on any nephrotoxic medication (hold Jardiance and Entresto). Would recommend nephrology consult -Blood pressure was slight elevated today, adding hydralazine and nitrate for now. -Further recommendation pending clinical course. 10/30/2023 -Patient with acute on chronic combined systolic and diastolic heart failure, EF of 20%, ischemic cardiomyopathy, acute on chronic severe chronic kidney disease stage IV would recommend to continue diuresis with IV Bumex 2 mg twice daily, close monitoring of ins and outs, electrolytes, renal function. -Would recommend nephrology consultation -Would recommend to hold nephrotoxic medication (will hold Entresto and Jardiance at this point) -BB for ICD consideration -Further recommendation pending his clinical course * Gilbert Dailey MD - 10/30/2023 8:27 PM EDT Store Operations Manager: Chief Complaint: No chief complaint on file. Subjective: Reports that scrotal swelling has improved Social History: Social History Socioeconomic History ??? Marital status: Unknown Spouse name: Not on file ??? Number of children: Not on file ??? Years of education: Not on file ??? Highest education level: Not on file Occupational History ??? Not on file Tobacco Use ??? Smoking status: Every Day Types: Cigarettes ??? Smokeless tobacco: Never Substance and Sexual Activity ??? Alcohol use: Not Currently ??? Drug use: Never ??? Sexual activity: Not on file Other Topics Concern ??? Not on file Social History Narrative ??? Not on file Social Determinants of Health Financial Resource Strain: High Risk (10/30/2023) Financial Resource Strain ??? : 1 Food Insecurity: Food Insecurity Present (10/30/2023) Food Insecurity ??? : 1 ??? : 0 Transportation Needs: Unmet Transportation Needs (10/30/2023) Transportation Needs ??? : 1 Physical Activity: Inactive (10/29/2023) Physical Activity ??? : 0 Stress: No Stress Concern Present (10/30/2023) Stress ??? : 1 Social Connections: Low Risk (10/30/2023) Family and Community Support ??? : 0 ??? : 0 Intimate Partner Violence: Not on file Housing Stability: Low Risk (10/30/2023) Housing Stability ??? : 0 ??? : 0 Living Arrangements: Alone Type of Residence: Private residence Family History: No family history on file. Medications: No current facility-administered medications on file prior to encounter. Current Outpatient Medications on File Prior to Encounter Medication Sig Dispense Refill ??? dapagliflozin propanediol (FARXIGA) 10 mg tablet Take 1 tablet (10 mg total) by mouth daily. ??? albuterol HFA (VENTOLIN HFA) 90 mcg/actuation inhaler Inhale 1 puff by mouth via inhaler every 6 (six) hours as needed for wheezing. ??? aspirin 81 MG EC tablet Take 1 tablet (81 mg total) by mouth daily. ??? atorvastatin (LIPITOR) 80 MG tablet Take 1 tablet (80 mg total) by mouth nightly. ??? carvediloL (COREG) 12.5 MG tablet Take 1 tablet (12.5 mg total) by mouth 2 (two) times daily with breakfast and dinner. ??? clopidogreL (PLAVIX) 75 mg tablet Take 1 tablet (75 mg total) by mouth daily Look-alike/Sound-alike medication. ??? furosemide (LASIX) 40 MG tablet Take 1 tablet (40 mg total) by mouth daily as needed (Edema). ??? gabapentin (NEURONTIN) 600 MG tablet Take 1 tablet (600 mg total) by mouth 3 (three) times daily. ??? hydrALAZINE (APRESOLINE) 50 MG tablet Take 1 tablet (50 mg total) by mouth 3 (three) times daily Look-alike/Sound-alike medication. ??? insulin detemir U-100 (LEVEMIR) 100 unit/mL (3 mL) InPn injection Inject 0.13 mLs (13 Units total) subcutaneously nightly. ??? isosorbide dinitrate (ISORDIL) 40 MG tablet Take 1 tablet (40 mg total) by mouth 3 (three) times daily. Review of Systems: Pertinent items are noted in HPI. Physical Exam: Physical Exam Constitutional: General: He is not in acute distress. Appearance: Normal appearance. He is not toxic-appearing or diaphoretic. HENT: Head: Normocephalic and atraumatic. Nose: Nose normal. Mouth/Throat: Mouth: Mucous membranes are moist. Pharynx: Oropharynx is clear. Eyes: Extraocular Movements: Extraocular movements intact. Conjunctiva/sclera: Conjunctivae normal. Pupils: Pupils are equal, round, and reactive to light. Cardiovascular: Rate and Rhythm: Normal rate and regular rhythm. Heart sounds: Normal heart sounds. No murmur heard. No gallop. Pulmonary: Effort: Pulmonary effort is normal. No respiratory distress. Breath sounds: Normal breath sounds. Abdominal: General: Abdomen is flat. Bowel sounds are normal. There is no distension. Palpations: Abdomen is soft. Tenderness: There is no abdominal tenderness. There is no guarding. Musculoskeletal: General: Deformity present. No swelling. Normal range of motion. Cervical back: Normal range of motion and neck supple. Left lower leg: No edema. Comments: Left BKA Skin: General: Skin is warm and dry. Coloration: Skin is not pale. Findings: No erythema. Neurological: General: No focal deficit present. Mental Status: He is alert and oriented to person, place, and time. Cranial Nerves: No cranial nerve deficit. Motor: No weakness. Psychiatric: Mood and Affect: Mood normal. Behavior: Behavior normal. Judgment: Judgment normal. Vitals: Hemodynamic parameters reviewed for last 24 hours. Blood pressure (!) 151/103, pulse 73, temperature 97.7 ??F (36.5 ??C), resp. rate 16, height 1.854 m (6' 1 ), weight 93.8 kg (206 lb 14.4 oz), SpO2 98 %. Assessment and Plan: ?? *Acute on chronic systolic/diastolic CHF / NYHA class III stage D For volume overload with anasarca on admission LVEF 20 to 25% per OSH echo, 15% reported here as per ECHO 10/29/2023 *Scrotal edema *ASCVD History of prior PCI History of non-STEMI *VHD With aortic regurgitation and mitral regurgitation (echo pending) *Hypertension *Hyperlipidemia *Diabetes mellitus type 2 Insulin-dependent *Peripheral vascular disease History of left [id number]-wtc-[id number] amputation (uses a prosthesis) *LECHUGA cirrhosis *COPD With acute on chronic hypoxemic respiratory failure *Noncompliance *KOKO on CKD stage IV *Cellulitis of the right calf Skin culture obtained on 730 showed Klebsiella and Enterobacter species *Low flow low gradient ?? PLAN: 10/30/2023 Patient has been placed on GDMT, limitations of increasing and adding guideline directed medical therapy is his renal failure, will increase Toprol-XL dose. Echocardiogram here showed ejection fraction of 15% low-flow low gradient aortic stenosis, patient will require an ICD for primary prevention of sudden cardiac however given recent skin cultures that showed Klebsiella and Enterobacter species, will hold off until we are sure there is no ongoing infection, I examined his right leg which showed no open wounds. I will consider him for subcutaneous ICD once cellulitis/infection is addressed. Continue diuresis and management of congestive heart failure as per cardiology team, nephrology was consulted. 10/29/2023 Telemetry reviewed. Will obtain twelve-lead EKG. We will obtain complete echocardiogram. Agree with initiation of GDMT. Agree with diuresis. We will consult cardiology for assistance with CHF management. We will consult nephrology for assistance with KOKO on CKD. Monitor and replace electrolytes as needed to keep potassium level greater than 4.0 and magnesium greater than 2.0 at all times. BMP and magnesium level pending. Will check TSH and free T4. Discussed wit . Further recommendations pending testing results, clinical course, and response to therapy. Signed: Gilbert Dailey MD 10/30/2023 8:27 PM * Nohelia Deutsch, DO - 10/30/2023 10:50 AM EDT [facility] PROGRESS NOTE Patient: Robert Hurley Jr. Date: 10/30/2023 Subjective CC: scrotal edema Date of Service: 10/30/2023 Patient seen and examined at bedside this AM with RN present. patient tells me taht he feels not good today, he is having cough productive of some phlegm, no n/v, no chest pain. Scrotal edema stillpresent and tender posteriorly. Objective Vitals: Temp: [97.7 ??F (36.5 ??C)-98.6 ??F (37 ??C)] 97.7 ??F (36.5 ??C) Pulse: [64-85] 70 Resp: [16-20] 18 BP: (133-151)/(89-99) 149/99 Intake/Output: Intake/Output Summary (Last 24 hours) at 10/30/2023 1051 Last data filed at 10/30/2023 1000 Gross per 24 hour Intake 240 ml Output 100 ml Net 140 ml Physical exam: General: Alert and oriented, no acute distress, appears older than stated age Neurologic: Awake, alert, and oriented X3, no apparent focal deficits Lungs: Clear to auscultation, non-labored respiration, on nc, no wheezing or rhonchi Heart: Normal rate, regular rhythm, right calf trace edema Abdomen: Soft, non-tender, non-distended, normal bowel sounds : scrotal edema, no erythema or drainage- edema improved from yesterday. Musculoskeletal: left AKA present Skin: Skin is warm and dry Psychiatric: Cooperative, appropriate mood and affect Labs: Results for orders placed or performed during the hospital encounter of 10/29/23 (from the past 24 hour(s)) Glucose, Nova Meter Status: Abnormal Collection Time: 10/29/23 4:28 PM Result Value Ref Range POC-GLUCOSE 136 (H) 70 - 110 mg/dL Loom Operator Apprentice [id number] PROBNP Status: Abnormal Collection Time: 10/29/23 5:50 PM Result Value Ref Range ProBNP (pg/mL) 81,260 (H) 0 - 125 pg/mL TSH with Reflex FT4 Status: Normal Collection Time: 10/29/23 5:50 PM Result Value Ref Range TSH 2.420 0.358 - 3.740 uIU/mL Magnesium Status: Normal Collection Time: 10/29/23 5:50 PM Result Value Ref Range Magnesium 2.3 1.5 - 2.4 mg/dL ECG 12 lead Status: None (In process) Collection Time: 10/29/23 6:24 PM Result Value Ref Range VENTRICULAR RATE EKG/MIN 84 BPM ATRIAL RATE (MCT) 84 BPM TN Interval 150 ms QRS-INTERVAL (MSEC) 120 ms QT Interval 410 ms QTC Interval 484 ms P Arab 55 degrees R AXIS (MCT) -9 degrees T Wave Arab 124 degrees [place] Diagnosis Suspect unspecified pacemaker failure Normal sinus rhythm Cannot rule out Anterior infarct , age undetermined Abnormal ECG No previous ECGs available Glucose, Nova Meter Status: Abnormal Collection Time: 10/29/23 7:23 PM Result Value Ref Range POC-GLUCOSE 158 (H) 70 - 110 mg/dL Loom Operator Apprentice [id number] Glucose, Nova Meter Status: Abnormal Collection Time: 10/29/23 8:37 PM Result Value Ref Range POC-GLUCOSE 165 (H) 70 - 110 mg/dL Loom Operator Apprentice [id number] Comprehensive metabolic panel Status: Abnormal Collection Time: 10/30/23 4:39 AM Result Value Ref Range Sodium 138 136 - 146 meq/L Potassium 4.8 3.5 - 5.1 meq/L Chloride 105 102 - 112 meq/L CO2 27 21 - 32 meq/L Calcium 9.1 8.4 - 10.1 mg/dL Glucose 88 74 - 106 mg/dL BUN 43 (H) 7 - 22 mg/dL Creatinine 3.35 (H) 0.70 - 1.30 mg/dL BUN/Creatinine 13 8 - 20 Albumin 2.6 (L) 3.4 - 5.0 g/dL Alkaline Phosphatase 171 (H) 27 - 136 U/L ALT 15 (L) 16 - 61 U/L AST 34 5 - 37 U/L Total Bilirubin 1.1 0.2 - 1.2 mg/dL Protein, Total 6.5 6.4 - 8.2 gm/dL Anion Gap 11 9 - 20 A/G Ratio 0.7 (L) 1.1 - 2.5 Globulin 3.9 1.5 - 4.5 g/dL Osmolality Calc 285.9 eGFR (mL/min/1.73m2) 21 (L) >=60 mL/min/1.73m2 CBC with automated diff Status: Abnormal Collection Time: 10/30/23 4:39 AM Result Value Ref Range WBC 4.5 4.2 - 9.1 K/??L RBC 4.33 (L) 4.63 - 6.08 M/??L Hemoglobin 10.5 (L) 13.7 - 17.5 GM/DL Hematocrit 35.6 (L) 40.1 - 51.0 % MCV 82 79 - 92 fL MCH 24.2 (L) 25.7 - 32.2 pg MCHC 29.5 (L) 32.3 - 36.5 GM/DL RDW 16.7 (H) 11.6 - 14.4 % Platelets 231 140 - 375 K/CU MM MPV 11.0 9.4 - 12.4 fL Nucleated Red Blood Cell 0.0 0 - 0.2 % % Neutros 63 34 - 68 % % Lymphs 25 22 - 53 % % Monos 9 5 - 12 % % Eos 2 1 - 7 % % Baso 1 0 - 1 % NRBC Absolute <0.01 0 - 0.012 K/ul # Neutros 2.87 1.78 - 5.38 K/??L # Lymphs 1.13 (L) 1.32 - 3.57 K/??L # Monos 0.42 0.30 - 0.82 K/??L # Eos 0.07 0.04 - 0.54 K/??L # Baso 0.04 0.01 - 0.08 K/??L Immature Granulocytes-Relative 0.20 0.01 - 0.43 % # IG <0.03 0.00 - 0.03 K/uL Magnesium Status: Normal Collection Time: 10/30/23 4:39 AM Result Value Ref Range Magnesium 2.4 1.5 - 2.4 mg/dL Lipid panel Status: Abnormal Collection Time: 10/30/23 4:39 AM Result Value Ref Range Triglycerides 120 0 - 249 mg/dL Cholesterol 195 0 - 199 mg/dL HDL 56 >=40 mg/dL VLDL 24 5 - 40 mg/dL Cholesterol/HDL ratio 3.5 (H) 0.0 - 3.2 LDl/HDL Ratio 2 0 - 4 RISK COMP 3 LDL Cholesterol, Calculated 115 (H) 0 - 99 mg/dL Glucose, Nova Meter Status: None Collection Time: 10/30/23 7:36 AM Result Value Ref Range POC-GLUCOSE 87 70 - 110 mg/dL Loom Operator Apprentice [id number] Radiology: Radiology Results (last 3 days) Procedure Component Value Units Date/Time XR chest AP portable [[id number]] Resulted: 10/30/23956 Order Status: Sent Updated: 10/30/23957 Medications: Scheduled Meds: ??? aspirin 81 mg oral Daily 81 mg at 10/30/23 1023 ??? atorvastatin 80 mg oral Every Night ??? bumetanide 2 mg oral Daily 2 mg at 10/30/23 0831 ??? cefTRIAXone 1 g intravenous Q24H IVPB Stopped at 10/29/23 1741 ??? empagliflozin 10 mg oral Daily 10 mg at 10/30/23 0831 ??? guaiFENesin 600 mg oral BID 600 mg at 10/30/23 1023 ??? heparin 5,000 Units subcutaneous Q12H 5,000 Units at 10/30/23830 ??? insulin glargine 10 Units subcutaneous Every Night 10 Units at 10/29/232120 ??? insulin lispro 0-18 Units subcutaneous 4x Daily AC 3 Units at 10/29/23 2218 ??? melatonin 3 mg oral Every Night 3 mg at 10/29/232119 ??? metoprolol succinate 50 mg oral Daily 50 mg at 10/30/23 0831 ??? nicotine 1 patch transdermal Daily ??? sacubitriL-valsartan 1 tablet oral BID 1 tablet at 10/30/23830 Continuous Infusions: PRN Meds: ??? acetaminophen ??? dextrose ??? glucagon ??? glucose ??? ipratropium-albuteroL ??? ondansetron Or ??? ondansetron PF ??? oxyCODONE ??? oxyCODONE Assessment and Plan Acute on chronic HFrEF - ef of 20-25% on echo at OSH - started entresto, metoprolol, jardiance - bumex 2 mg daily, now - strict I&O - CHF admission order set used - hold on spironolactone at potassium 5.0 at OSH this am - he came to [facility] for EP eval for AICD, d/w dr dailey yesterday, no plans for AICD at this time. ?? - cards consult pending Scrotal edema, improved - from above - no open abscess or lesions - does not need urology consult at this time ?? LEFT AKA - s/p LEFT AKA 3 years ago - has prosthesis, consult pt/ot Diabetes mellitus - continue ssi and lantus LECHUGA cirrhosis - noted CKD 4 - monitor renal function with diuresis, creatinine 3.3 at OSH on 10/28 - creatinine 3.35 today ?? Cellulitis right calf - right calf with chronic skin wound and cellulitis, skin culture from [facility] on 10/25 showed klebsiella and enterobacter- sensistive to all but amp/cefazolin/cefoxitin. - no open ulcers or drainage, I am unsure what the other hospital cultured. - started empiric rocephin on 10/28 for a few days while in hospital - consult wound care ?? Suspected COPD - nebs prn Chronic hypoxic resp failure? - possible on home o2 from private pay? - continue NC and monitor Diet: Orders Placed This Encounter Procedures ??? Consistent Carbohydrate Additional Modifiers: Heart Healthy, 2 gram Sodium Code Status: Current Code Status Full code Medical Decision Making: High complexity medical decision making required due to chf exac, scrotal edema improved today. bp still slightly high, cards consult pending. Creatinine stable today Discharge Planning: Barriers to discharge: above Expected (tentative) discharge in 2-3 days Expected discharge disposition (home, SNF/Rehab, etc): home Discussed with nurse and case management. Signed: Nohelia Santos Physician Hospitalist Pager [phone] 10/30/2023, 10:51 AM documented in this encounter H&P Notes * Nohelia Deutsch DO - 10/29/2023 2:56 PM EDT Images from the original note were not included. [facility] PHYSICIAN HOSPITALIST HISTORY AND PHYSICAL Patient: Robert Hurley Jr. Date: 10/29/2023 PCP: none Date of Service: 10/29/2023 Chief Complaint: sob, scrotal edema PMH: systolic chf, dm, ckd 4, left AKA Home meds: unknown Not on File History of Present Illness Robert Hurley Jr. is a 58 y.o. male with history of chf, ckd 4, DM, htn, left AKA who lives by himself who presented to [facility] on 10/25 for evaluation of 4 days of worsening shortness of breath and scrotal edema. He is a poor historian. 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 He tells me that he has home o2, he reports he buys from the internet but does tell me that preivously o2 levels were in the 70's and he was prescribed it. He is unsure if he takes water pills but thinks its lasix once daily at home but was supposed to be twice daily, again, he is a poor historian. He does have chronic right calf ulcer, occasionally it drains, he dresses himself. He was admitted to [facility] for chf exacerbation, he was given iv lasix and then this was decreased as thought euvolemic. He had echocardiogram done showing EF of 20-25% and was transferred to [facility] for EP evaluation of AICD. 10/28 Labs at OSH showed wbc 3.5, hgb 10.5, plt 201, sodium 138, potassium 5.0, creatinine 3.3, mag 2.0. Objective Vitals: Temp: [98 ??F (36.7 ??C)] 98 ??F (36.7 ??C) Pulse: [85] 85 Resp: [18] 18 BP: (138)/(91) 138/91 Intake/Output: No intake or output data in the 24 hours ending 10/29/23 1456 Physical exam: General: Alert and oriented, no acute distress, older than stated age Neurologic: Awake, alert, and oriented X3, no apparent focal deficits Lungs: decreased breath sounds at bases, no wheezing, on nc Heart: Normal rate, regular rhythm, +systolic murmur Abdomen: Soft, non-tender, non-distended, normal bowel sounds : nontense scrotal edema, no open ulcers or drainage, no erythema. JAME Santillan present with me whenI saw patient. Musculoskeletal: left AKA Skin: dry skin to right calf, no open ulcers or drainage. Psychiatric: Cooperative, appropriate mood and affect Above pictures are right calf wound Labs: No results found for this visit on 10/29/23 (from the past 24 hour(s)). Radiology: Radiology Results (last day) No results found for the last 24 hours. Medications: Home Medications: No current facility-administered medications on file prior to encounter. No current outpatient medications on file prior to encounter. Scheduled Meds: Continuous Infusions: PRN Meds: Assessment and Plan Acute on chronic HFrEF - ef of 20-25% on echo at OSH - start entresto, metoprolol, jardiance - bumex 2 mg daily, now - strict I&O - CHF admission order set used - hold on spironolactone at potassium 5.0 at OSH this am - he came to [facility] for EP eval for AICD, d/w dr dailey, no plans for AICD at this time. Scrotal edema - from above - no open abscess or lesions - does not need urology consult at this time LEFT AKA - s/p LEFT AKA 3 years ago - has prosthesis, consult pt/ot Diabetes mellitus - start ssi and lantus LECHUAG cirrhosis - noted CKD 4 - monitor renal function with diuresis, creatinine 3.3 this am at [facility] Cellulitis right calf - right calf with chronic skin wound and cellulitis, skin culture from [facility] on 10/25 showed klebsiella and enterobacter- sensistive to all but amp/cefazolin/cefoxitin. - no open ulcers or drainage, I am unsure what OSH cultures really.... - start empiric rocephin for a few days while in hospital - consult wound care Suspects COPD - nebs prn Chronic hypoxic resp failure? - possible on home o2 from private pay? - continue NC and monitor Patient requires complex medical decision making details of which are outlined in above assessment and plan. Diet: Orders Placed This Encounter Procedures ??? Consistent Carbohydrate Additional Modifiers: Heart Healthy, 2 gram Sodium Code Status: Current Code Status Full code patient seen by RN Julissa, he tells me that he wants his oldest son, Robert Hurley III to make decisions for him if he is unable. Disposition: admit to [facility] for chf exac, patient to require greater than 2 midnight hospital stay. Signed: Nohelia Santos Hospitalist Physician Pager [phone] 10/29/2023, 2:56 PM documented in this encounter Consult Notes * Lia Eaton RD - 11/05/2023 11:55 AM EDT [facility] NUTRITION ASSESSMENT The patient is a 58 y.o. male presenting with c/o SOB and scrotal edema. Present on Admission: ?? Acute on chronic HFrEF ?? Scrotal edema ?? LEFT AKA Nutrition Evaluation Type: Initial Assessment Reason for Evaluation: LOS Subjective Comments: 11/04: Pt currently on a consistent carb, heart healthy diet. Eating very well, 85-100% intakes x4 meals per nsg documentation. LBM 11/01. WOCN following, pt with dry legs to BLE. Labs and meds reviewed.No nutrition dx at this time. ?D/c today. RD to rescreen in 7-10 days or available prn. Past Medical/Surgical History: Past 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: Diagnosis Date ??? CHF (congestive heart failure) (HCC) ??? CKD (chronic kidney disease) ??? COPD (chronic obstructive pulmonary disease) (HCC) ??? Hx of AKA (above knee amputation), left (HCC) No past surgical history on file. Wt Readings from Last 10 Encounters: 11/05/23 82.8 kg (182 lb 8 oz) Nutrition Monitoring and Goals: 1. Continue a heart healthy, consistent carb diet. RD to add ONS prn. Goal: intakes >50% Nutrition Risk Level: No Risk Lia Eaton RDN, LD * Kacy Montez MD - 10/30/2023 8:52 AM EDTAssociated Order(s): FS_MODEL_IP IP CONSULT TO CARDIOLOGY [facility] - Consult Note Basic Information: Name Robert Hurley , 1965, 58 y.o., male cardiology PCP: No primary care provider on file. Admit Date 10/29/2023 Patient Location [id number] Chief Complaint/Consult reason: Shortness of air History of Present Illness: Robert Hurley is an unfortunate 58-year-old gentleman with a known history of atherosclerotic cardiovascular disease with history of PCI, valvular heart disease with history of aortic and mitral regurgitation, hypertension, dyslipidemia, ischemic cardiomyopathy with ejection fraction proximal 25%, ch ronic systolic heart failure, peripheral arterial disease with history of left AKA, Lechuga cirrhosis,chronic kidney disease, as well has a history of medical noncompliance who presented to [facility] via outside facility for evaluation for ICD placement and for management of heart failure. Cardiology has been asked to see and assist in management of his care during the stay for assistance with heart failure therapy. Currently the patient denies chest pain, but admits to some mild shortness of air. He is significantly volume overloaded, but states this is improving. He otherwise has no complaints. At the time of this assessment he is resting comfortably no acute distress Review of Sytems: Complete 10 point ROS Normal or Non-contributory except complaints described in HPI or other sections of this note. Health Status: Allergies Penicillin Home Medications: Prior to Admission medications Medication Sig Start Date End Date Taking? Authorizing Provider dapagliflozin propanediol (FARXIGA) 10 mg tablet Take 1 tablet (10 mg total) by mouth daily. Yes Historical Provider, albuterol HFA (VENTOLIN HFA) 90 mcg/actuation inhaler Inhale 1 puff by mouth via inhaler every 6 (six) hours as needed for wheezing. Historical Provider, aspirin 81 MG EC tablet Take 1 tablet (81 mg total) by mouth daily. Historical Provider, atorvastatin (LIPITOR) 80 MG tablet Take 1 tablet (80 mg total) by mouth nightly. Historical Provider, carvediloL (COREG) 12.5 MG tablet Take 1 tablet (12.5 mg total) by mouth 2 (two) times daily with breakfast and dinner. Historical Provider, clopidogreL (PLAVIX) 75 mg tablet Take 1 tablet (75 mg total) by mouth daily Look-alike/Sound-alike medication. Historical Provider, furosemide (LASIX) 40 MG tablet Take 1 tablet (40 mg total) by mouth daily as needed (Edema). Historical Provider, gabapentin (NEURONTIN) 600 MG tablet Take 1 tablet (600 mg total) by mouth 3 (three) times daily. Historical Provider, hydrALAZINE (APRESOLINE) 50 MG tablet Take 1 tablet (50 mg total) by mouth 3 (three) times daily Look-alike/Sound-alike medication. Historical Provider, insulin detemir U-100 (LEVEMIR) 100 unit/mL (3 mL) InPn injection Inject 0.13 mLs (13 Units total) subcutaneously nightly. Historical Provider, isosorbide dinitrate (ISORDIL) 40 MG tablet Take 1 tablet (40 mg total) by mouth 3 (three) times daily. Historical Provider, Past 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: Pt has a past medical history of CHF (congestive heart failure) ([facility]), CKD (chronic kidney disease), COPD (chronic obstructive pulmonary disease) ([facility]), and AKA (above knee amputation), left ([facility]). Surgical History: left heart catheterization Tobacco History Pt reports that he has been smoking cigarettes. He has never used smokeless tobacco. Alcohol History Pt reports that he does not currently use alcohol. Drug Use History Pt reports no history of drug use. Family History Noncontributory OBJECTIVE Vital ranges lat 24 hours Temp: [97.9 ??F (36.6 ??C)-98.6 ??F (37 ??C)] 98.6 ??F (37 ??C) Pulse: [64-85] 70 Resp: [16-20] 20 BP: (133-151)/(89-99) 149/99 Intake and Output 24 hours: Intake/Output Summary (Last 24 hours) at 10/30/2023 0852 Last data filed at 10/29/2023 1631 Gross per 24 hour Intake -- Output 100 ml Net -100 ml Net I&O this admission: Net IO Since Admission: -100 mL [10/30/23 0852] PHYSICAL EXAMINATION General: AOx3, in no acute distress HEENT: atraumatic and normocephalic, no conjunctival injection, no icterus Neck: supple, no JVD Chest/Resp: Chest is clear bilaterally. Cardio: S1 and S2 normal, systolic murmur, l Abdomen/GI: The abdomen is soft without tenderness Extremities: ++ edema, left above-knee amputation. Skin: no rashes Neuro: no focal neurologic deficits grossly AOx3 Inpatient Medications bumetanide, 2 mg, oral, Daily cefTRIAXone, 1 g, intravenous, Q24H empagliflozin, 10 mg, oral, Daily heparin, 5,000 Units, subcutaneous, Q12H insulin glargine, 10 Units, subcutaneous, Every Night insulin lispro, 0-18 Units, subcutaneous, 4x Daily AC melatonin, 3 mg, oral, Every Night metoprolol succinate, 50 mg, oral, Daily nicotine, 1 patch, transdermal, Daily sacubitriL-valsartan, 1 tablet, oral, BID Results Review: Labs: WBC Date Value Ref Range Status 10/30/2023 4.5 4.2 - 9.1 K/??L Final 07/20/2019 5.2 3.9 - 10.0 K/uL Final Hemoglobin Date Value Ref Range Status 10/30/2023 10.5 (L) 13.7 - 17.5 GM/DL Final Hgb Date Value Ref Range Status 07/20/2019 14.7 13.7 - 17.5 Gram/dL Final Comment: No Hemoglobin reference ranges defined for patients with an ???Unknown?? gender. Please apply existing Male/Female reference ranges as clinically indicated. Assay HGB Male 0 Days 1 Months 12 23 Female 0 Days 1 Months 12 23 Male 1 Months 2 Years 10 14 Female 1 Months 2 Years 10 14 Male 2 Years 12 Years 11 16 Female 2 Years 12 Years 11 16 Male 12 Years 150 Years 13.7 17.5 Female 12 Years 150 Years 11.2 15.7 Platelets Date Value Ref Range Status 10/30/2023 231 140 - 375 K/CU MM Final Creatinine Date Value Ref Range Status 10/30/2023 3.35 (H) 0.70 - 1.30 mg/dL Final Creatinine Level Date Value Ref Range Status 07/20/2019 0.98 0.70 - 1.30 mg/dL Final BUN Date Value Ref Range Status 10/30/2023 43 (H) 7 - 22 mg/dL Final Blood Urea Nitrogen Date Value Ref Range Status 07/20/2019 25 (H) 7 - 22 mg/dL Final Potassium Date Value Ref Range Status 10/30/2023 4.8 3.5 - 5.1 meq/L Final Sodium Date Value Ref Range Status 10/30/2023 138 136 - 146 meq/L Final Magnesium Date Value Ref Range Status 10/30/2023 2.4 1.5 - 2.4 mg/dL Final 10/29/2023 2.3 1.5 - 2.4 mg/dL Final AST Date Value Ref Range Status 10/30/2023 34 5 - 37 U/L Final ALT Date Value Ref Range Status 10/30/2023 15 (L) 16 - 61 U/L Final Alkaline Phosphatase Date Value Ref Range Status 10/30/2023 171 (H) 27 - 136 U/L Final TSH Date Value Ref Range Status 10/29/2023 2.420 0.358 - 3.740 uIU/mL Final Imaging: No image results found. Problem list: Principal Problem: Acute on chronic diastolic CHF (congestive heart failure) (HCC) Impression and Plan: IMPRESSION: * Acute combined systolic and diastolic heart failure with reduced ejection fraction, stage C, NYHAclass III A. EF 20-25% per echocardiogram at outside facility * Atherosclerotic cardiovascular disease with history of PCI * Valvular heart disease history of AR/MR * Hypertension * Dyslipidemia * Diabetes mellitus type 2 * Peripheral vascular disease with history of AKA * LECHUGA cirrhosis * KOKO on CKD stage IV * COPD * History of medical noncompliance PLAN: -Patient with acute on chronic combined systolic and diastolic heart failure, EF of 20%, ischemic cardiomyopathy, acute on chronic severe chronic kidney disease stage IV would recommend to continue diuresis with IV Bumex 2 mg twice daily, close monitoring of ins and outs, electrolytes, renal function. -Would recommend nephrology consultation -Would recommend to hold nephrotoxic medication (will hold Entresto and Jardiance at this point) -BB for ICD consideration -Further recommendation pending his clinical course * Monika Pennington MD - 10/30/2023 8:12 AM EDT Consults CKD stage 4 History of Present Illness: Patient is very poor historian Robert Hurley Jr. is a 58 y.o. male with history of CKD 4 with base creatinine close to ~3, DM,HTN,CHF, left AKA ,difficulty accessing health care resources and keeping follow ups,noncompliance??who presented to [facility] on 10/25 for evaluation of several days of worsening shortness ofbreath and scrotal edema. [facility] as above ,He had echocardiogram done showing EF of 20-25% and was transferred to [facility] for EP evaluation of AICD. Yesterday Labs at OSH showed wbc 3.5, hgb 10.5, plt 201, sodium 138, potassium 5.0, creatinine 3.3,mag 2.0. Nephrology was consulted for Renal failure and Volume management Past 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: He has a past medical history of CHF (congestive heart failure) ([facility]), CKD (chronic kidney disease), COPD (chronic obstructive pulmonary disease) ([facility]), and AKA (above knee amputation), left ([facility]). Past Surgical History: He has no past surgical history on file. Social History: He reports that he has been smoking cigarettes. He has never used smokeless tobacco. He reports that he does not currently use alcohol. He reports that he does not use drugs. Family History: His family history is not on file. Allergies: Penicillin Medications: Medications Prior to Admission Medication Sig Dispense Refill Last Dose ??? dapagliflozin propanediol (FARXIGA) 10 mg tablet Take 1 tablet (10 mg total) by mouth daily. 10/28/2023 ??? albuterol HFA (VENTOLIN HFA) 90 mcg/actuation inhaler Inhale 1 puff by mouth via inhaler every 6 (six) hours as needed for wheezing. Unknown ??? aspirin 81 MG EC tablet Take 1 tablet (81 mg total) by mouth daily. Unknown ??? atorvastatin (LIPITOR) 80 MG tablet Take 1 tablet (80 mg total) by mouth nightly. Unknown ??? carvediloL (COREG) 12.5 MG tablet Take 1 tablet (12.5 mg total) by mouth 2 (two) times daily with breakfast and dinner. Unknown ??? clopidogreL (PLAVIX) 75 mg tablet Take 1 tablet (75 mg total) by mouth daily Look-alike/Sound-alike medication. Unknown ??? furosemide (LASIX) 40 MG tablet Take 1 tablet (40 mg total) by mouth daily as needed (Edema). Unknown ??? gabapentin (NEURONTIN) 600 MG tablet Take 1 tablet (600 mg total) by mouth 3 (three) times daily. Unknown ??? hydrALAZINE (APRESOLINE) 50 MG tablet Take 1 tablet (50 mg total) by mouth 3 (three) times daily Look-alike/Sound-alike medication. Unknown ??? insulin detemir U-100 (LEVEMIR) 100 unit/mL (3 mL) InPn injection Inject 0.13 mLs (13 Units total) subcutaneously nightly. Unknown ??? isosorbide dinitrate (ISORDIL) 40 MG tablet Take 1 tablet (40 mg total) by mouth 3 (three) times daily. Unknown Review of Systems Constitutional: Positive for activity change and appetite change. HENT: Negative. Respiratory: Positive for shortness of breath. Cardiovascular: Negative. Gastrointestinal: Negative. Genitourinary: Negative. Skin: Negative. Neurological: Positive for weakness. Hematological: Negative. Psychiatric/Behavioral: Negative. Vitals: Blood pressure (!) 151/89, pulse 64, temperature 98.6 ??F (37 ??C), temperature source Oral, resp. rate 20, height 1.854 m (6' 1 ), weight 93.8 kg (206 lb 14.4 oz), SpO2 100 %. Physical Exam Constitutional: Appearance: Normal appearance. HENT: Head: Normocephalic and atraumatic. Nose: Nose normal. Cardiovascular: Rate and Rhythm: Normal rate and regular rhythm. Heart sounds: Murmur heard. Pulmonary: Breath sounds: Rhonchi and rales present. Abdominal: Palpations: Abdomen is soft. Musculoskeletal: Cervical back: Normal range of motion and neck supple. Skin: General: Skin is warm and dry. Neurological: Mental Status: He is alert and oriented to person, place, and time. Relevant Results: Results for orders placed or performed during the hospital encounter of 10/29/23 (from the past 24 hour(s)) Glucose, Nova Meter Status: Abnormal Collection Time: 10/29/23 4:28 PM Result Value Ref Range POC-GLUCOSE 136 (H) 70 - 110 mg/dL Loom Operator Apprentice [id number] PROBNP Status: Abnormal Collection Time: 10/29/23 5:50 PM Result Value Ref Range ProBNP (pg/mL) 81,260 (H) 0 - 125 pg/mL TSH with Reflex FT4 Status: Normal Collection Time: 10/29/23 5:50 PM Result Value Ref Range TSH 2.420 0.358 - 3.740 uIU/mL Magnesium Status: Normal Collection Time: 10/29/23 5:50 PM Result Value Ref Range Magnesium 2.3 1.5 - 2.4 mg/dL ECG 12 lead Status: None (In process) Collection Time: 10/29/23 6:24 PM Result Value Ref Range VENTRICULAR RATE EKG/MIN 84 BPM ATRIAL RATE (MCT) 84 BPM TN Interval 150 ms QRS-INTERVAL (MSEC) 120 ms QT Interval 410 ms QTC Interval 484 ms P Arab 55 degrees R AXIS (MCT) -9 degrees T Wave Arab 124 degrees [place] Diagnosis Suspect unspecified pacemaker failure Normal sinus rhythm Cannot rule out Anterior infarct , age undetermined Abnormal ECG No previous ECGs available Glucose, Nova Meter Status: Abnormal Collection Time: 10/29/23 7:23 PM Result Value Ref Range POC-GLUCOSE 158 (H) 70 - 110 mg/dL Loom Operator Apprentice [id number] Glucose, Nova Meter Status: Abnormal Collection Time: 10/29/23 8:37 PM Result Value Ref Range POC-GLUCOSE 165 (H) 70 - 110 mg/dL Loom Operator Apprentice [id number] Comprehensive metabolic panel Status: Abnormal Collection Time: 10/30/23 4:39 AM Result Value Ref Range Sodium 138 136 - 146 meq/L Potassium 4.8 3.5 - 5.1 meq/L Chloride 105 102 - 112 meq/L CO2 27 21 - 32 meq/L Calcium 9.1 8.4 - 10.1 mg/dL Glucose 88 74 - 106 mg/dL BUN 43 (H) 7 - 22 mg/dL Creatinine 3.35 (H) 0.70 - 1.30 mg/dL BUN/Creatinine 13 8 - 20 Albumin 2.6 (L) 3.4 - 5.0 g/dL Alkaline Phosphatase 171 (H) 27 - 136 U/L ALT 15 (L) 16 - 61 U/L AST 34 5 - 37 U/L Total Bilirubin 1.1 0.2 - 1.2 mg/dL Protein, Total 6.5 6.4 - 8.2 gm/dL Anion Gap 11 9 - 20 A/G Ratio 0.7 (L) 1.1 - 2.5 Globulin 3.9 1.5 - 4.5 g/dL Osmolality Calc 285.9 eGFR (mL/min/1.73m2) 21 (L) >=60 mL/min/1.73m2 CBC with automated diff Status: Abnormal Collection Time: 10/30/23 4:39 AM Result Value Ref Range WBC 4.5 4.2 - 9.1 K/??L RBC 4.33 (L) 4.63 - 6.08 M/??L Hemoglobin 10.5 (L) 13.7 - 17.5 GM/DL Hematocrit 35.6 (L) 40.1 - 51.0 % MCV 82 79 - 92 fL MCH 24.2 (L) 25.7 - 32.2 pg MCHC 29.5 (L) 32.3 - 36.5 GM/DL RDW 16.7 (H) 11.6 - 14.4 % Platelets 231 140 - 375 K/CU MM MPV 11.0 9.4 - 12.4 fL Nucleated Red Blood Cell 0.0 0 - 0.2 % % Neutros 63 34 - 68 % % Lymphs 25 22 - 53 % % Monos 9 5 - 12 % % Eos 2 1 - 7 % % Baso 1 0 - 1 % NRBC Absolute <0.01 0 - 0.012 K/ul # Neutros 2.87 1.78 - 5.38 K/??L # Lymphs 1.13 (L) 1.32 - 3.57 K/??L # Monos 0.42 0.30 - 0.82 K/??L # Eos 0.07 0.04 - 0.54 K/??L # Baso 0.04 0.01 - 0.08 K/??L Immature Granulocytes-Relative 0.20 0.01 - 0.43 % # IG <0.03 0.00 - 0.03 K/uL Magnesium Status: Normal Collection Time: 10/30/23 4:39 AM Result Value Ref Range Magnesium 2.4 1.5 - 2.4 mg/dL Glucose, Nova Meter Status: None Collection Time: 10/30/23 7:36 AM Result Value Ref Range POC-GLUCOSE 87 70 - 110 mg/dL Loom Operator Apprentice [id number] Assessment & Plan Principal Problem: Acute on chronic diastolic CHF (congestive heart failure) (HCC) 1. Acute on chronic CKD stage IV, secondary to cardiorenal syndrome type I 2. Chronic kidney disease stage IV secondary to type II cardiorenal syndrome/hypertensive nephrosclerosis and diabetic nephropathy Repeated Echo with EF:~10-15 % 3. Volume overload 4. Anemia 5. Acute combined systolic and diastolic exacerbation of CHF with repeated ejection fraction of 10-15% 6. Type 2 diabetes 7. Peripheral vascular disease/coronary artery disease 8. Hypertension 9. History of COPD -Optimization of cardiac function as per cardiology, patient is on cardioprotective medications -Agree with loop diuretics to Bumex 2 mg p.o. daily for now and this can be adjusted as needed depending on the urine output -Creatinine 3.3 close to base, electrolytes are okay -Avoid nephrotoxins, keep MAP above 65 -Strict intake and output -Renally dose medications -No need for CONSTRUCTION ENGINEERING MANAGER at present time -Thanks for consultation for along with you [facility] [address] [place] [place], [place], [address] Phone #[phone] Fax #[phone] High complex case Electronically signed by Monika Pennington MD 10/30/2023 at 8:12 AM * Gilbert Dailey MD - 10/29/2023 4:47 PM EDTAssociated Order(s): FS_MODEL_IP IP CONSULT TO ELECTROPHYSIOLOGY EP Consult Note Patient Name: Robert Hurley Jr. Admission Date: 10/29/2023 Primary Care Provider: No primary care provider on file. Primary Store Operations Manager: Previously seen per [facility]ian[facility] cardiology at cardiology Primary Software Consultant: NONE Chief Complaint/Reason for Consult: Acute on chronic mixed CHF. Patient for possible AICD placement. History of Present Illness: Robert Hurley Jr. is a 58 y.o. male with PMH of ASCVD, history of non-STEMI, history of PCI, VHDwith aortic regurgitation and mitral regurgitation, hypertension, hyperlipidemia, diabetes mellitustype 2, peripheral vascular disease with history of left [id number] amputation (uses prosthesis), LECHUGA cirrhosis, CKD stage III-IV, and medical noncompliance. Patient admitted on: 10/29/2023 2:26 PM in transfer from [facility] for further evaluation and management of acute on chronic systolic congestive heart failure with reported LVEF of 20 to 25% per echo at OSH. Electrophysiology consultation been requested for further evaluation and consideration for possible AICD placement. has requested transfer to [facility] from [facility]. Time of this exam patient is awake, alert, and in no acute distress. He is currently hemodynamically stable without need for pressors. No current complaints of chest pain, nausea, vomiting, diaphoresis, or perceivable palpitations. ekg monitor is currently showing sinus rhythm with a heart rate in the 80s without ectopy. Medications: Prior to Admission Medications: Medications Prior to Admission Medication Sig Dispense Refill Last Dose ??? amLODIPine (NORVASC) 5 MG tablet Take 1 tablet (5 mg total) by mouth daily. 10/29/2023 Scheduled Medications: ??? bumetanide 2 mg oral Daily ??? cefTRIAXone 1 g intravenous Q24H ??? empagliflozin 10 mg oral Daily ??? heparin 5,000 Units subcutaneous Q12H ??? insulin glargine 10 Units subcutaneous Every Night ??? insulin lispro 0-18 Units subcutaneous 4x Daily AC ??? melatonin 3 mg oral Every Night ??? metoprolol succinate 50 mg oral Daily ??? nicotine 1 patch transdermal Daily ??? sacubitriL-valsartan 1 tablet oral BID Current Infusions: More meds No current facility-administered medications on file prior to encounter. Current Outpatient Medications on File Prior to Encounter Medication Sig Dispense Refill ??? amLODIPine (NORVASC) 5 MG tablet Take 1 tablet (5 mg total) by mouth daily. Problem list and diagnosis Patient Active Problem List Diagnosis ??? Acute on chronic diastolic CHF (congestive heart failure) ([facility]) No diagnosis found. Past 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: Past 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: Diagnosis Date ??? CHF (congestive heart failure) (HCC) ??? CKD (chronic kidney disease) ??? COPD (chronic obstructive pulmonary disease) (HCC) ??? Hx of AKA (above knee amputation), left (HCC) Past Surgical History: No past surgical history on file. Allergies: Allergies Allergen Reactions ??? Penicillin Rash as a child Social History: Tobacco Use ??? Smoking status: Every Day Types: Cigarettes ??? Smokeless tobacco: Never Substance Use Topics ??? Alcohol use: Not Currently ??? Drug use: Never Marital Status: Unknown Family History: No family history on file. Review of Systems: Constitutional: Negative except as documented in history of present illness. Eye: Negative except as documented in history of present illness. Ear/Nose/Mouth/Throat: Negative except as documented in history of present illness. Respiratory: Negative except as documented in history of present illness. Cardiovascular: Negative except as documented in history of present illness. Gastrointestinal: Negative except as documented in history of present illness. Genitourinary: Negative except as documented in history of present illness. Hematology/Lymphatics: Negative except as documented in history of present illness. Endocrine: Negative except as documented in history of present illness. Immunologic: Negative except as documented in history of present illness. Musculoskeletal: Negative except as documented in history of present illness. Integumentary: Negative except as documented in history of present illness. Neurologic: Negative except as documented in history of present illness. Psychiatric: Negative except as documented in history of present illness. Physical Exam: Blood pressure (!) 142/93, pulse 85, temperature 97.9 ??F (36.6 ??C), temperature source Oral, resp. rate 16, height 1.854 m (6' 1 ), weight 96 kg (211 lb 9.6 oz), SpO2 100 %. General: Alert and oriented, No acute distress. HENT: Normocephalic, Oral mucosa is moist. Neck: Supple, Non-tender, No carotid bruit, No jugular venous distention. Respiratory: Lungs are clear to auscultation, Respirations are non-labored, Symmetrical chest wall expansion. Cardiovascular: Normal rate, regular rhythm, No murmur, Good left AKA Gastrointestinal: Soft, Non-distended, Normal bowel sounds. Musculoskeletal: Normal range of motion, Normal strength. Integumentary: Warm, Dry, [place]. Neurologic: Alert, Oriented. Psychiatric: Cooperative, Appropriate mood & affect. Labs, Imaging, and Other Studies: Echo Results (last 7 days) No results found for the last 168 hours. Blood Urea Nitrogen Date Value Ref Range Status 07/20/2019 25 (H) 7 - 22 mg/dL Final Creatinine Level Date Value Ref Range Status 07/20/2019 0.98 0.70 - 1.30 mg/dL Final Calcium Level Date Value Ref Range Status 07/20/2019 8.7 8.5 - 10.1 mg/dL Final WBC Date Value Ref Range Status 07/20/2019 5.2 3.9 - 10.0 K/uL Final RBC Date Value Ref Range Status 07/20/2019 5.01 4.63 - 6.08 Million/uL Final Comment: No Red Blood Cell reference ranges defined for patients with an ???Unknown?? gender. Please apply existing Male/Female reference ranges as clinically indicated. Assay RBC Male 0 Minutes 2 Months 4.8 7.1 Female 0 Minutes 2 Months 4.8 7.1 Male 2 Months 12 Years 4 5.5 Female 2 Months 12 Years 4 5.5 Male 12 Years 150 Years 4.63 6.08 Female 12 Years 150 Years 3.93 5.22 Hgb Date Value Ref Range Status 07/20/2019 14.7 13.7 - 17.5 Gram/dL Final Comment: No Hemoglobin reference ranges defined for patients with an ???Unknown?? gender. Please apply existing Male/Female reference ranges as clinically indicated. Assay HGB Male 0 Days 1 Months 12 23 Female 0 Days 1 Months 12 23 Male 1 Months 2 Years 10 14 Female 1 Months 2 Years 10 14 Male 2 Years 12 Years 11 16 Female 2 Years 12 Years 11 16 Male 12 Years 150 Years 13.7 17.5 Female 12 Years 150 Years 11.2 15.7 Hct Date Value Ref Range Status 07/20/2019 44.2 40.1 - 51.0 % Final Comment: No Hematocrit reference ranges defined for patients with an ???Unknown?? gender. Please apply existing Male/Female reference ranges as clinically indicated. Assay HCT Male 0 Minutes 1 Months 42 66 Female 0 Minutes 1 Months 42 66 Male 1 Months 2 Years 31 42 Female 1 Months 2 Years 31 42 Male 2 Years 12 Years 33 46 Female 2 Years 12 Years 33 46 Male 12 Years 150 Years 40.1 51 Female 12 Years 150 Years 34.1 44.9 No results found for: TSH , MAGNESIUM .lastlab No results found for: K Lab Results Component Value Date CREATININE 0.98 07/20/2019 No results found for: TSH No results found for: MAGNESIUM No results found for: AST , ALT Assessment and Plan: *Acute on chronic systolic/diastolic CHF / NYHA class III stage D For volume overload with anasarca on admission LVEF 20 to 25% per OSH echo *Scrotal edema *ASCVD History of prior PCI History of non-STEMI *VHD With aortic regurgitation and mitral regurgitation (echo pending) *Hypertension *Hyperlipidemia *Diabetes mellitus type 2 Insulin-dependent *Peripheral vascular disease History of left [id number] amputation (uses a prosthesis) *LECHUGA cirrhosis *COPD With acute on chronic hypoxemic respiratory failure *Noncompliance *KOKO on CKD stage IV *Cellulitis of the right calf Skin culture obtained on 730 showed Klebsiella and Enterobacter species PLAN: 10/29/2023 Telemetry reviewed. Will obtain twelve-lead EKG. We will obtain complete echocardiogram. Agree with initiation of GDMT. Agree with diuresis. We will consult cardiology for assistance with CHF management. We will consult nephrology for assistance with KOKO on CKD. Monitor and replace electrolytes as needed to keep potassium level greater than 4.0 and magnesium greater than 2.0 at all times. BMP and magnesium level pending. Will check TSH and free T4. Discussed wit . Further recommendations pending testing results, clinical course, and response to therapy. documented in this encounter Miscellaneous Notes * Plan of Care - Ame Lopez RN - 11/08/2023 11:41 AM EDT Problem: Compromised Skin Integrity Goal: LTG - Patient will be free from infection Outcome: Progressing Goal: LTG - Patient will maintain/improve skin integrity through proper skin care techniques Outcome: Progressing Goal: LTG - Patient will demonstrate appropriate pressure relief techniques Outcome: Progressing Goal: LTG - Patient will demonstrate appropriate skin care techniques Outcome: Progressing Goal: LTG - Patient will be free from infection Outcome: Progressing Goal: STG - Patient demonstrates skin care/treatment/dressing change Outcome: Progressing Goal: STG - Patient will maintain good skin integrity Outcome: Progressing Goal: STG - Patient exhibits signs of wound healing. Outcome: Progressing Goal: STG - Patient demonstrates pressure reduction techniques Outcome: Progressing Goal: STG - Patient demonstrates preventative skin care measures Outcome: Progressing Problem: Knowledge Deficit Goal: Patient/family/caregiver demonstrates understanding of disease process, treatment plan, medications, and discharge instructions Description: Complete learning assessment and assess knowledge base. Outcome: Progressing Problem: Potential for Falls Goal: Patient will remain free of falls Description: Assess and monitor vitals signs, neurological status including level of consciousness and orientation. Reassess fall risk per hospital policy. Ensure arm band on, uncluttered walking paths in room, adequate room lighting, call light and overbed table within reach, bed in low position, wheels locked, side rails up per policy, and non-skid footwear provided. Outcome: Progressing Problem: Anxiety Goal: Anxiety is at manageable level Description: Assess and monitor patient's anxiety level. Monitor for signs and symptoms of anxiety both physical and emotional (heart palpitations, chest pain, shortness of breath, headaches, nausea,feeling jumpy, restlessness, irritable, apprehensive). Collaborate with interdisciplinary team and initiate plan and interventions as ordered. Outcome: Progressing Problem: Hemodynamic Status Goal: Patient's vitals signs are stable Description: Assess and monitor patient's heart rate, rhythm, respiratory rate, peripheral pulses, capillary refill, color, body temperature, intake and output, labs and physical activity tolerance. Observe for signs of chest pain (note location, duration, severity, radiation and associated symptoms such as diaphoresis, nausea, indigestion). Monitor for signs and symptoms of heart failure (eg. shortness of breath, edema of feet/ankles/legs, rapid irregular heart rate, coughing, wheezing, white/pink blood tinged sputum, sudden weight gain, chest pain). Collaborate with interdisciplinary team and initiate plan and interventions as ordered. Outcome: Progressing Problem: Activity Intolerance/Impaired Mobility Goal: Mobility/activity is maintained at optimum level for patient Description: Assess and monitor patient barriers to mobility and need for assistive/adaptive devices. Assess patient's emotional response to limitations. Collaborate with interdisciplinary team and initiate plans and interventions as ordered. Outcome: Progressing Problem: Nutrition Goal: Nutritional status is improving Description: Monitor and assess patient for malnutrition (ex- brittle hair, bruises, dry skin, paleskin and conjunctiva, muscle wasting, smooth red tongue, and disorientation). Collaborate with interdisciplinary team and initiate plan and interventions as ordered. Monitor patient's weight and dietary intake as ordered or per policy. Utilize nutrition screening tool and intervene per policy. Determine patient's food preferences and provide high-protein, high- caloric foods as appropriate. Outcome: Progressing Problem: CV: Dysrhythmia Goal: Patient achieves/maintains stable cardiac rhythm Outcome: Progressing Problem: Inadequate Tissue Perfusion - Arterial Goal: Tissue perfusion is adequate - arterial Description: Assess and monitor skin color and temperature, skin integrity, pulses, capillary refill, edema, pain in extremities, and labs. Assess patients feelings of being cold and apply more clothing/blankets as needed to maintain vasodilation. Collaborate with interdisciplinary team and initiate plans and interventions as needed. Outcome: Progressing Problem: Inadequate Tissue Perfusion - Venous Goal: Tissue perfusion is adequate - venous Description: Assess and monitor skin color and temperature, skin integrity, pulses, capillary refill, edema, pain in extremities, Homans' sign, labs (D- dimer), and diagnostic tests (ultrasound, CT scan, VQ scan). Monitor for signs and symptoms of deep vein thrombosis (swelling of calf/thigh, redness, pain, tenderness). Monitor for signs and symptoms of pulmonary embolism (dyspnea, tachypnea, tachycardia). Collaborate with interdisciplinary team and initiate plans and interventions as needed. Outcome: Progressing Problem: Pain Goal: Patient's pain/discomfort is manageable Description: Assess and monitor patient's pain using appropriate pain scale. Collaborate with interdisciplinary team and initiate plan and interventions as ordered. Re-assess patient's pain level after pain management intervention. Outcome: Progressing Problem: Safety Goal: Patient will be injury free during hospitalization Description: Assess and monitor vitals signs, neurological status including level of consciousness and orientation. Assess patient's risk for falls and implement fall prevention plan of care and interventions per hospital policy. Ensure arm band on, uncluttered walking paths in room, adequate room lighting, call light and overbed table within reach, bed in low position, wheels locked, side rails up per policy, and non-skid footwear provided. Outcome: Progressing Problem: Potential for Developing a Blood Clot Goal: Tissue perfusion is adequate - venous Description: Assess and monitor skin color and temperature, skin integrity, pulses, capillary refill, edema, pain in extremities, Homans' sign, labs (D- dimer), and diagnostic tests (ultrasound, CT scan, VQ scan). Monitor for signs and symptoms of deep vein thrombosis (swelling of calf/thigh, redness, pain, tenderness). Monitor for signs and symptoms of pulmonary embolism (dyspnea, tachypnea, tachycardia). Collaborate with interdisciplinary team and initiate plans and interventions as needed Outcome: Progressing * Plan of Care - Tess Robin RN - 11/07/2023 11:38 PM EDT Problem: Compromised Skin Integrity Goal: LTG - Patient will be free from infection Outcome: Progressing Goal: LTG - Patient will maintain/improve skin integrity through proper skin care techniques Outcome: Progressing Goal: LTG - Patient will demonstrate appropriate pressure relief techniques Outcome: Progressing Goal: LTG - Patient will demonstrate appropriate skin care techniques Outcome: Progressing Goal: LTG - Patient will be free from infection Outcome: Progressing Goal: STG - Patient demonstrates skin care/treatment/dressing change Outcome: Progressing Goal: STG - Patient will maintain good skin integrity Outcome: Progressing Goal: STG - Patient exhibits signs of wound healing. Outcome: Progressing Goal: STG - Patient demonstrates pressure reduction techniques Outcome: Progressing Goal: STG - Patient demonstrates preventative skin care measures Outcome: Progressing Problem: Knowledge Deficit Goal: Patient/family/caregiver demonstrates understanding of disease process, treatment plan, medications, and discharge instructions Description: Complete learning assessment and assess knowledge base. Outcome: Progressing Problem: Potential for Falls Goal: Patient will remain free of falls Description: Assess and monitor vitals signs, neurological status including level of consciousness and orientation. Reassess fall risk per hospital policy. Ensure arm band on, uncluttered walking paths in room, adequate room lighting, call light and overbed table within reach, bed in low position, wheels locked, side rails up per policy, and non-skid footwear provided. Outcome: Progressing Problem: Anxiety Goal: Anxiety is at manageable level Description: Assess and monitor patient's anxiety level. Monitor for signs and symptoms of anxiety both physical and emotional (heart palpitations, chest pain, shortness of breath, headaches, nausea,feeling jumpy, restlessness, irritable, apprehensive). Collaborate with interdisciplinary team and initiate plan and interventions as ordered. Outcome: Progressing Problem: Hemodynamic Status Goal: Patient's vitals signs are stable Description: Assess and monitor patient's heart rate, rhythm, respiratory rate, peripheral pulses, capillary refill, color, body temperature, intake and output, labs and physical activity tolerance. Observe for signs of chest pain (note location, duration, severity, radiation and associated symptoms such as diaphoresis, nausea, indigestion). Monitor for signs and symptoms of heart failure (eg. shortness of breath, edema of feet/ankles/legs, rapid irregular heart rate, coughing, wheezing, white/pink blood tinged sputum, sudden weight gain, chest pain). Collaborate with interdisciplinary team and initiate plan and interventions as ordered. Outcome: Progressing Problem: Activity Intolerance/Impaired Mobility Goal: Mobility/activity is maintained at optimum level for patient Description: Assess and monitor patient barriers to mobility and need for assistive/adaptive devices. Assess patient's emotional response to limitations. Collaborate with interdisciplinary team and initiate plans and interventions as ordered. Outcome: Progressing Problem: Nutrition Goal: Nutritional status is improving Description: Monitor and assess patient for malnutrition (ex- brittle hair, bruises, dry skin, paleskin and conjunctiva, muscle wasting, smooth red tongue, and disorientation). Collaborate with interdisciplinary team and initiate plan and interventions as ordered. Monitor patient's weight and dietary intake as ordered or per policy. Utilize nutrition screening tool and intervene per policy. Determine patient's food preferences and provide high-protein, high- caloric foods as appropriate. Outcome: Progressing Problem: CV: Dysrhythmia Goal: Patient achieves/maintains stable cardiac rhythm Outcome: Progressing Problem: Inadequate Tissue Perfusion - Arterial Goal: Tissue perfusion is adequate - arterial Description: Assess and monitor skin color and temperature, skin integrity, pulses, capillary refill, edema, pain in extremities, and labs. Assess patients feelings of being cold and apply more clothing/blankets as needed to maintain vasodilation. Collaborate with interdisciplinary team and initiate plans and interventions as needed. Outcome: Progressing Problem: Inadequate Tissue Perfusion - Venous Goal: Tissue perfusion is adequate - venous Description: Assess and monitor skin color and temperature, skin integrity, pulses, capillary refill, edema, pain in extremities, Homans' sign, labs (D- dimer), and diagnostic tests (ultrasound, CT scan, VQ scan). Monitor for signs and symptoms of deep vein thrombosis (swelling of calf/thigh, redness, pain, tenderness). Monitor for signs and symptoms of pulmonary embolism (dyspnea, tachypnea, tachycardia). Collaborate with interdisciplinary team and initiate plans and interventions as needed. Outcome: Progressing Problem: Pain Goal: Patient's pain/discomfort is manageable Description: Assess and monitor patient's pain using appropriate pain scale. Collaborate with interdisciplinary team and initiate plan and interventions as ordered. Re-assess patient's pain level after pain management intervention. Outcome: Progressing Problem: Safety Goal: Patient will be injury free during hospitalization Description: Assess and monitor vitals signs, neurological status including level of consciousness and orientation. Assess patient's risk for falls and implement fall prevention plan of care and interventions per hospital policy. Ensure arm band on, uncluttered walking paths in room, adequate room lighting, call light and overbed table within reach, bed in low position, wheels locked, side rails up per policy, and non-skid footwear provided. Outcome: Progressing Problem: Potential for Developing a Blood Clot Goal: Tissue perfusion is adequate - venous Description: Assess and monitor skin color and temperature, skin integrity, pulses, capillary refill, edema, pain in extremities, Homans' sign, labs (D- dimer), and diagnostic tests (ultrasound, CT scan, VQ scan). Monitor for signs and symptoms of deep vein thrombosis (swelling of calf/thigh, redness, pain, tenderness). Monitor for signs and symptoms of pulmonary embolism (dyspnea, tachypnea, tachycardia). Collaborate with interdisciplinary team and initiate plans and interventions as needed Outcome: Progressing * Plan of Care - Cathy Ragland RN - 11/07/2023 6:22 PM EDT Problem: Compromised Skin Integrity Goal: LTG - Patient will be free from infection Outcome: Progressing Goal: LTG - Patient will maintain/improve skin integrity through proper skin care techniques Outcome: Progressing Goal: LTG - Patient will demonstrate appropriate pressure relief techniques Outcome: Progressing Goal: LTG - Patient will demonstrate appropriate skin care techniques Outcome: Progressing Goal: LTG - Patient will be free from infection Outcome: Progressing Goal: STG - Patient demonstrates skin care/treatment/dressing change Outcome: Progressing Goal: STG - Patient will maintain good skin integrity Outcome: Progressing Goal: STG - Patient exhibits signs of wound healing. Outcome: Progressing Goal: STG - Patient demonstrates pressure reduction techniques Outcome: Progressing Goal: STG - Patient demonstrates preventative skin care measures Outcome: Progressing Problem: Knowledge Deficit Goal: Patient/family/caregiver demonstrates understanding of disease process, treatment plan, medications, and discharge instructions Description: Complete learning assessment and assess knowledge base. Outcome: Progressing Problem: Potential for Falls Goal: Patient will remain free of falls Description: Assess and monitor vitals signs, neurological status including level of consciousness and orientation. Reassess fall risk per hospital policy. Ensure arm band on, uncluttered walking paths in room, adequate room lighting, call light and overbed table within reach, bed in low position, wheels locked, side rails up per policy, and non-skid footwear provided. Outcome: Progressing Problem: Anxiety Goal: Anxiety is at manageable level Description: Assess and monitor patient's anxiety level. Monitor for signs and symptoms of anxiety both physical and emotional (heart palpitations, chest pain, shortness of breath, headaches, nausea,feeling jumpy, restlessness, irritable, apprehensive). Collaborate with interdisciplinary team and initiate plan and interventions as ordered. Outcome: Progressing Problem: Hemodynamic Status Goal: Patient's vitals signs are stable Description: Assess and monitor patient's heart rate, rhythm, respiratory rate, peripheral pulses, capillary refill, color, body temperature, intake and output, labs and physical activity tolerance. Observe for signs of chest pain (note location, duration, severity, radiation and associated symptoms such as diaphoresis, nausea, indigestion). Monitor for signs and symptoms of heart failure (eg. shortness of breath, edema of feet/ankles/legs, rapid irregular heart rate, coughing, wheezing, white/pink blood tinged sputum, sudden weight gain, chest pain). Collaborate with interdisciplinary team and initiate plan and interventions as ordered. Outcome: Progressing Problem: Activity Intolerance/Impaired Mobility Goal: Mobility/activity is maintained at optimum level for patient Description: Assess and monitor patient barriers to mobility and need for assistive/adaptive devices. Assess patient's emotional response to limitations. Collaborate with interdisciplinary team and initiate plans and interventions as ordered. Outcome: Progressing Problem: Nutrition Goal: Nutritional status is improving Description: Monitor and assess patient for malnutrition (ex- brittle hair, bruises, dry skin, paleskin and conjunctiva, muscle wasting, smooth red tongue, and disorientation). Collaborate with interdisciplinary team and initiate plan and interventions as ordered. Monitor patient's weight and dietary intake as ordered or per policy. Utilize nutrition screening tool and intervene per policy. Determine patient's food preferences and provide high-protein, high- caloric foods as appropriate. Outcome: Progressing Problem: CV: Dysrhythmia Goal: Patient achieves/maintains stable cardiac rhythm Outcome: Progressing Problem: Inadequate Tissue Perfusion - Arterial Goal: Tissue perfusion is adequate - arterial Description: Assess and monitor skin color and temperature, skin integrity, pulses, capillary refill, edema, pain in extremities, and labs. Assess patients feelings of being cold and apply more clothing/blankets as needed to maintain vasodilation. Collaborate with interdisciplinary team and initiate plans and interventions as needed. Outcome: Progressing Problem: Inadequate Tissue Perfusion - Venous Goal: Tissue perfusion is adequate - venous Description: Assess and monitor skin color and temperature, skin integrity, pulses, capillary refill, edema, pain in extremities, Homans' sign, labs (D- dimer), and diagnostic tests (ultrasound, CT scan, VQ scan). Monitor for signs and symptoms of deep vein thrombosis (swelling of calf/thigh, redness, pain, tenderness). Monitor for signs and symptoms of pulmonary embolism (dyspnea, tachypnea, tachycardia). Collaborate with interdisciplinary team and initiate plans and interventions as needed. Outcome: Progressing Problem: Pain Goal: Patient's pain/discomfort is manageable Description: Assess and monitor patient's pain using appropriate pain scale. Collaborate with interdisciplinary team and initiate plan and interventions as ordered. Re-assess patient's pain level after pain management intervention. Outcome: Progressing Problem: Safety Goal: Patient will be injury free during hospitalization Description: Assess and monitor vitals signs, neurological status including level of consciousness and orientation. Assess patient's risk for falls and implement fall prevention plan of care and interventions per hospital policy. Ensure arm band on, uncluttered walking paths in room, adequate room lighting, call light and overbed table within reach, bed in low position, wheels locked, side rails up per policy, and non-skid footwear provided. Outcome: Progressing Problem: Potential for Developing a Blood Clot Goal: Tissue perfusion is adequate - venous Description: Assess and monitor skin color and temperature, skin integrity, pulses, capillary refill, edema, pain in extremities, Homans' sign, labs (D- dimer), and diagnostic tests (ultrasound, CT scan, VQ scan). Monitor for signs and symptoms of deep vein thrombosis (swelling of calf/thigh, redness, pain, tenderness). Monitor for signs and symptoms of pulmonary embolism (dyspnea, tachypnea, tachycardia). Collaborate with interdisciplinary team and initiate plans and interventions as needed Outcome: Progressing * Plan of Care - Cathy Ragland RN - 11/06/2023 5:46 PM EDT Problem: Compromised Skin Integrity Goal: LTG - Patient will be free from infection Outcome: Progressing Goal: LTG - Patient will maintain/improve skin integrity through proper skin care techniques Outcome: Progressing Goal: LTG - Patient will demonstrate appropriate pressure relief techniques Outcome: Progressing Goal: LTG - Patient will demonstrate appropriate skin care techniques Outcome: Progressing Goal: LTG - Patient will be free from infection Outcome: Progressing Goal: STG - Patient demonstrates skin care/treatment/dressing change Outcome: Progressing Goal: STG - Patient will maintain good skin integrity Outcome: Progressing Goal: STG - Patient exhibits signs of wound healing. Outcome: Progressing Goal: STG - Patient demonstrates pressure reduction techniques Outcome: Progressing Goal: STG - Patient demonstrates preventative skin care measures Outcome: Progressing Problem: Knowledge Deficit Goal: Patient/family/caregiver demonstrates understanding of disease process, treatment plan, medications, and discharge instructions Description: Complete learning assessment and assess knowledge base. Outcome: Progressing Problem: Potential for Falls Goal: Patient will remain free of falls Description: Assess and monitor vitals signs, neurological status including level of consciousness and orientation. Reassess fall risk per hospital policy. Ensure arm band on, uncluttered walking paths in room, adequate room lighting, call light and overbed table within reach, bed in low position, wheels locked, side rails up per policy, and non-skid footwear provided. Outcome: Progressing Problem: Anxiety Goal: Anxiety is at manageable level Description: Assess and monitor patient's anxiety level. Monitor for signs and symptoms of anxiety both physical and emotional (heart palpitations, chest pain, shortness of breath, headaches, nausea,feeling jumpy, restlessness, irritable, apprehensive). Collaborate with interdisciplinary team and initiate plan and interventions as ordered. Outcome: Progressing Problem: Hemodynamic Status Goal: Patient's vitals signs are stable Description: Assess and monitor patient's heart rate, rhythm, respiratory rate, peripheral pulses, capillary refill, color, body temperature, intake and output, labs and physical activity tolerance. Observe for signs of chest pain (note location, duration, severity, radiation and associated symptoms such as diaphoresis, nausea, indigestion). Monitor for signs and symptoms of heart failure (eg. shortness of breath, edema of feet/ankles/legs, rapid irregular heart rate, coughing, wheezing, white/pink blood tinged sputum, sudden weight gain, chest pain). Collaborate with interdisciplinary team and initiate plan and interventions as ordered. Outcome: Progressing Problem: Activity Intolerance/Impaired Mobility Goal: Mobility/activity is maintained at optimum level for patient Description: Assess and monitor patient barriers to mobility and need for assistive/adaptive devices. Assess patient's emotional response to limitations. Collaborate with interdisciplinary team and initiate plans and interventions as ordered. Outcome: Progressing Problem: Nutrition Goal: Nutritional status is improving Description: Monitor and assess patient for malnutrition (ex- brittle hair, bruises, dry skin, paleskin and conjunctiva, muscle wasting, smooth red tongue, and disorientation). Collaborate with interdisciplinary team and initiate plan and interventions as ordered. Monitor patient's weight and dietary intake as ordered or per policy. Utilize nutrition screening tool and intervene per policy. Determine patient's food preferences and provide high-protein, high- caloric foods as appropriate. Outcome: Progressing Problem: CV: Dysrhythmia Goal: Patient achieves/maintains stable cardiac rhythm Outcome: Progressing Problem: Inadequate Tissue Perfusion - Arterial Goal: Tissue perfusion is adequate - arterial Description: Assess and monitor skin color and temperature, skin integrity, pulses, capillary refill, edema, pain in extremities, and labs. Assess patients feelings of being cold and apply more clothing/blankets as needed to maintain vasodilation. Collaborate with interdisciplinary team and initiate plans and interventions as needed. Outcome: Progressing Problem: Inadequate Tissue Perfusion - Venous Goal: Tissue perfusion is adequate - venous Description: Assess and monitor skin color and temperature, skin integrity, pulses, capillary refill, edema, pain in extremities, Homans' sign, labs (D- dimer), and diagnostic tests (ultrasound, CT scan, VQ scan). Monitor for signs and symptoms of deep vein thrombosis (swelling of calf/thigh, redness, pain, tenderness). Monitor for signs and symptoms of pulmonary embolism (dyspnea, tachypnea, tachycardia). Collaborate with interdisciplinary team and initiate plans and interventions as needed. Outcome: Progressing Problem: Pain Goal: Patient's pain/discomfort is manageable Description: Assess and monitor patient's pain using appropriate pain scale. Collaborate with interdisciplinary team and initiate plan and interventions as ordered. Re-assess patient's pain level after pain management intervention. Outcome: Progressing Problem: Safety Goal: Patient will be injury free during hospitalization Description: Assess and monitor vitals signs, neurological status including level of consciousness and orientation. Assess patient's risk for falls and implement fall prevention plan of care and interventions per hospital policy. Ensure arm band on, uncluttered walking paths in room, adequate room lighting, call light and overbed table within reach, bed in low position, wheels locked, side rails up per policy, and non-skid footwear provided. Outcome: Progressing Problem: Potential for Developing a Blood Clot Goal: Tissue perfusion is adequate - venous Description: Assess and monitor skin color and temperature, skin integrity, pulses, capillary refill, edema, pain in extremities, Homans' sign, labs (D- dimer), and diagnostic tests (ultrasound, CT scan, VQ scan). Monitor for signs and symptoms of deep vein thrombosis (swelling of calf/thigh, redness, pain, tenderness). Monitor for signs and symptoms of pulmonary embolism (dyspnea, tachypnea, tachycardia). Collaborate with interdisciplinary team and initiate plans and interventions as needed Outcome: Progressing * Plan of Care - Ame Lopez RN - 11/04/2023 10:48 PM EDT Problem: Pain Goal: Patient's pain/discomfort is manageable Description: Assess and monitor patient's pain using appropriate pain scale. Collaborate with interdisciplinary team and initiate plan and interventions as ordered. Re-assess patient's pain level after pain management intervention. Intervention: Asssess pain level utilizing 0-10 scale Recent Flowsheet Documentation Taken 11/04/20232052 by Ame Lopez RN Pain Score: Zero Problem: Safety Goal: Patient will be injury free during hospitalization Description: Assess and monitor vitals signs, neurological status including level of consciousness and orientation. Assess patient's risk for falls and implement fall prevention plan of care and interventions per hospital policy. Ensure arm band on, uncluttered walking paths in room, adequate room lighting, call light and overbed table within reach, bed in low position, wheels locked, side rails up per policy, and non-skid footwear provided. Intervention: Assess patient's risk for falls and implement fall prevention plan of care per policy Recent Flowsheet Documentation Taken 11/04/20232199 by Ame Lopez RN History of Fallin Secondary Diagnosis: 15 Ambulatory Aids: 0 Intravenous Therapy/Intravenous Access: 20 Gait/Transferrin Mental Status: 0 Score: 55 Intervention: Provide and maintain safe environment Recent Flowsheet Documentation Taken 11/04/20232199 by Aem Lopez RN Side Rails/Bed Safety: 05/30 Taken 11/04/20231999 by Ame Lopez RN Side Rails/Bed Safety: 05/30 Intervention: Ensure appropriate safety devices are available at the bedside Recent Flowsheet Documentation Taken 11/04/20232199 by Ame Lopez RN Safety Equipment at Bedside: O2 Regulator Taken 11/04/20231999 by Ame Lopez RN Safety Equipment at Bedside: O2 Regulator Problem: Safety Goal: Patient will be injury free during hospitalization Description: Assess and monitor vitals signs, neurological status including level of consciousness and orientation. Assess patient's risk for falls and implement fall prevention plan of care and interventions per hospital policy. Ensure arm band on, uncluttered walking paths in room, adequate room lighting, call light and overbed table within reach, bed in low position, wheels locked, side rails up per policy, and non-skid footwear provided. Intervention: Provide and maintain safe environment Recent Flowsheet Documentation Taken 11/04/20232199 by Ame Lopez RN Side Rails/Bed Safety: 05/30 Taken 11/04/20231999 by Ame Lopez RN Side Rails/Bed Safety: 05/30 Problem: Safety Goal: Patient will be injury free during hospitalization Description: Assess and monitor vitals signs, neurological status including level of consciousness and orientation. Assess patient's risk for falls and implement fall prevention plan of care and interventions per hospital policy. Ensure arm band on, uncluttered walking paths in room, adequate room lighting, call light and overbed table within reach, bed in low position, wheels locked, side rails up per policy, and non-skid footwear provided. Intervention: Ensure appropriate safety devices are available at the bedside Recent Flowsheet Documentation Taken 11/04/20232199 by Ame Lopez RN Safety Equipment at Bedside: O2 Regulator Taken 11/04/20231999 by Ame Lopez RN Safety Equipment at Bedside: O2 Regulator * Plan of Care - Ame Lopez RN - 11/04/2023 2:09 AM EDT Problem: Compromised Skin Integrity Goal: LTG - Patient will be free from infection Outcome: Progressing Goal: LTG - Patient will maintain/improve skin integrity through proper skin care techniques Outcome: Progressing Goal: LTG - Patient will demonstrate appropriate pressure relief techniques Outcome: Progressing Goal: LTG - Patient will demonstrate appropriate skin care techniques Outcome: Progressing Goal: LTG - Patient will be free from infection Outcome: Progressing Goal: STG - Patient demonstrates skin care/treatment/dressing change Outcome: Progressing Goal: STG - Patient will maintain good skin integrity Outcome: Progressing Goal: STG - Patient exhibits signs of wound healing. Outcome: Progressing Goal: STG - Patient demonstrates pressure reduction techniques Outcome: Progressing Goal: STG - Patient demonstrates preventative skin care measures Outcome: Progressing Problem: Compromised Skin Integrity Goal: LTG - Patient will be free from infection Outcome: Progressing Problem: Knowledge Deficit Goal: Patient/family/caregiver demonstrates understanding of disease process, treatment plan, medications, and discharge instructions Description: Complete learning assessment and assess knowledge base. Outcome: Progressing Problem: Potential for Falls Goal: Patient will remain free of falls Description: Assess and monitor vitals signs, neurological status including level of consciousness and orientation. Reassess fall risk per hospital policy. Ensure arm band on, uncluttered walking paths in room, adequate room lighting, call light and overbed table within reach, bed in low position, wheels locked, side rails up per policy, and non-skid footwear provided. Outcome: Progressing Problem: Anxiety Goal: Anxiety is at manageable level Description: Assess and monitor patient's anxiety level. Monitor for signs and symptoms of anxiety both physical and emotional (heart palpitations, chest pain, shortness of breath, headaches, nausea,feeling jumpy, restlessness, irritable, apprehensive). Collaborate with interdisciplinary team and initiate plan and interventions as ordered. Outcome: Progressing Problem: Inadequate Tissue Perfusion - Arterial Goal: Tissue perfusion is adequate - arterial Description: Assess and monitor skin color and temperature, skin integrity, pulses, capillary refill, edema, pain in extremities, and labs. Assess patients feelings of being cold and apply more clothing/blankets as needed to maintain vasodilation. Collaborate with interdisciplinary team and initiate plans and interventions as needed. Outcome: Progressing Problem: Inadequate Tissue Perfusion - Venous Goal: Tissue perfusion is adequate - venous Description: Assess and monitor skin color and temperature, skin integrity, pulses, capillary refill, edema, pain in extremities, Homans' sign, labs (D- dimer), and diagnostic tests (ultrasound, CT scan, VQ scan). Monitor for signs and symptoms of deep vein thrombosis (swelling of calf/thigh, redness, pain, tenderness). Monitor for signs and symptoms of pulmonary embolism (dyspnea, tachypnea, tachycardia). Collaborate with interdisciplinary team and initiate plans and interventions as needed. Outcome: Progressing Problem: Compromised Skin Integrity Goal: LTG - Patient will be free from infection Outcome: Progressing Goal: LTG - Patient will maintain/improve skin integrity through proper skin care techniques Outcome: Progressing Goal: LTG - Patient will demonstrate appropriate pressure relief techniques Outcome: Progressing Goal: LTG - Patient will demonstrate appropriate skin care techniques Outcome: Progressing Goal: LTG - Patient will be free from infection Outcome: Progressing Goal: STG - Patient demonstrates skin care/treatment/dressing change Outcome: Progressing Goal: STG - Patient will maintain good skin integrity Outcome: Progressing Goal: STG - Patient exhibits signs of wound healing. Outcome: Progressing Goal: STG - Patient demonstrates pressure reduction techniques Outcome: Progressing Goal: STG - Patient demonstrates preventative skin care measures Outcome: Progressing Problem: Knowledge Deficit Goal: Patient/family/caregiver demonstrates understanding of disease process, treatment plan, medications, and discharge instructions Description: Complete learning assessment and assess knowledge base. Outcome: Progressing Problem: Potential for Falls Goal: Patient will remain free of falls Description: Assess and monitor vitals signs, neurological status including level of consciousness and orientation. Reassess fall risk per hospital policy. Ensure arm band on, uncluttered walking paths in room, adequate room lighting, call light and overbed table within reach, bed in low position, wheels locked, side rails up per policy, and non-skid footwear provided. Outcome: Progressing Problem: Anxiety Goal: Anxiety is at manageable level Description: Assess and monitor patient's anxiety level. Monitor for signs and symptoms of anxiety both physical and emotional (heart palpitations, chest pain, shortness of breath, headaches, nausea,feeling jumpy, restlessness, irritable, apprehensive). Collaborate with interdisciplinary team and initiate plan and interventions as ordered. Outcome: Progressing Problem: Hemodynamic Status Goal: Patient's vitals signs are stable Description: Assess and monitor patient's heart rate, rhythm, respiratory rate, peripheral pulses, capillary refill, color, body temperature, intake and output, labs and physical activity tolerance. Observe for signs of chest pain (note location, duration, severity, radiation and associated symptoms such as diaphoresis, nausea, indigestion). Monitor for signs and symptoms of heart failure (eg. shortness of breath, edema of feet/ankles/legs, rapid irregular heart rate, coughing, wheezing, white/pink blood tinged sputum, sudden weight gain, chest pain). Collaborate with interdisciplinary team and initiate plan and interventions as ordered. Outcome: Progressing Problem: Activity Intolerance/Impaired Mobility Goal: Mobility/activity is maintained at optimum level for patient Description: Assess and monitor patient barriers to mobility and need for assistive/adaptive devices. Assess patient's emotional response to limitations. Collaborate with interdisciplinary team and initiate plans and interventions as ordered. Outcome: Progressing Problem: Nutrition Goal: Nutritional status is improving Description: Monitor and assess patient for malnutrition (ex- brittle hair, bruises, dry skin, paleskin and conjunctiva, muscle wasting, smooth red tongue, and disorientation). Collaborate with interdisciplinary team and initiate plan and interventions as ordered. Monitor patient's weight and dietary intake as ordered or per policy. Utilize nutrition screening tool and intervene per policy. Determine patient's food preferences and provide high-protein, high- caloric foods as appropriate. Outcome: Progressing Problem: CV: Dysrhythmia Goal: Patient achieves/maintains stable cardiac rhythm Outcome: Progressing Problem: Inadequate Tissue Perfusion - Arterial Goal: Tissue perfusion is adequate - arterial Description: Assess and monitor skin color and temperature, skin integrity, pulses, capillary refill, edema, pain in extremities, and labs. Assess patients feelings of being cold and apply more clothing/blankets as needed to maintain vasodilation. Collaborate with interdisciplinary team and initiate plans and interventions as needed. Outcome: Progressing Problem: Inadequate Tissue Perfusion - Venous Goal: Tissue perfusion is adequate - venous Description: Assess and monitor skin color and temperature, skin integrity, pulses, capillary refill, edema, pain in extremities, Homans' sign, labs (D- dimer), and diagnostic tests (ultrasound, CT scan, VQ scan). Monitor for signs and symptoms of deep vein thrombosis (swelling of calf/thigh, redness, pain, tenderness). Monitor for signs and symptoms of pulmonary embolism (dyspnea, tachypnea, tachycardia). Collaborate with interdisciplinary team and initiate plans and interventions as needed. Outcome: Progressing * Plan of Care - Juliette Bonds RN - 11/02/2023 6:50 PM EDT Problem: Compromised Skin Integrity Goal: LTG - Patient will be free from infection Outcome: Progressing Goal: LTG - Patient will maintain/improve skin integrity through proper skin care techniques Outcome: Progressing Goal: LTG - Patient will demonstrate appropriate pressure relief techniques Outcome: Progressing Goal: LTG - Patient will demonstrate appropriate skin care techniques Outcome: Progressing Goal: LTG - Patient will be free from infection Outcome: Progressing Goal: STG - Patient demonstrates skin care/treatment/dressing change Outcome: Progressing Goal: STG - Patient will maintain good skin integrity Outcome: Progressing Goal: STG - Patient exhibits signs of wound healing. Outcome: Progressing Goal: STG - Patient demonstrates pressure reduction techniques Outcome: Progressing Goal: STG - Patient demonstrates preventative skin care measures Outcome: Progressing Problem: Knowledge Deficit Goal: Patient/family/caregiver demonstrates understanding of disease process, treatment plan, medications, and discharge instructions Description: Complete learning assessment and assess knowledge base. Outcome: Progressing Problem: Potential for Falls Goal: Patient will remain free of falls Description: Assess and monitor vitals signs, neurological status including level of consciousness and orientation. Reassess fall risk per hospital policy. Ensure arm band on, uncluttered walking paths in room, adequate room lighting, call light and overbed table within reach, bed in low position, wheels locked, side rails up per policy, and non-skid footwear provided. Outcome: Progressing Problem: Anxiety Goal: Anxiety is at manageable level Description: Assess and monitor patient's anxiety level. Monitor for signs and symptoms of anxiety both physical and emotional (heart palpitations, chest pain, shortness of breath, headaches, nausea,feeling jumpy, restlessness, irritable, apprehensive). Collaborate with interdisciplinary team and initiate plan and interventions as ordered. Outcome: Progressing Problem: Hemodynamic Status Goal: Patient's vitals signs are stable Description: Assess and monitor patient's heart rate, rhythm, respiratory rate, peripheral pulses, capillary refill, color, body temperature, intake and output, labs and physical activity tolerance. Observe for signs of chest pain (note location, duration, severity, radiation and associated symptoms such as diaphoresis, nausea, indigestion). Monitor for signs and symptoms of heart failure (eg. shortness of breath, edema of feet/ankles/legs, rapid irregular heart rate, coughing, wheezing, white/pink blood tinged sputum, sudden weight gain, chest pain). Collaborate with interdisciplinary team and initiate plan and interventions as ordered. Outcome: Progressing Problem: Activity Intolerance/Impaired Mobility Goal: Mobility/activity is maintained at optimum level for patient Description: Assess and monitor patient barriers to mobility and need for assistive/adaptive devices. Assess patient's emotional response to limitations. Collaborate with interdisciplinary team and initiate plans and interventions as ordered. Outcome: Progressing Problem: Nutrition Goal: Nutritional status is improving Description: Monitor and assess patient for malnutrition (ex- brittle hair, bruises, dry skin, paleskin and conjunctiva, muscle wasting, smooth red tongue, and disorientation). Collaborate with interdisciplinary team and initiate plan and interventions as ordered. Monitor patient's weight and dietary intake as ordered or per policy. Utilize nutrition screening tool and intervene per policy. Determine patient's food preferences and provide high-protein, high- caloric foods as appropriate. Outcome: Progressing Problem: CV: Dysrhythmia Goal: Patient achieves/maintains stable cardiac rhythm Outcome: Progressing Problem: Inadequate Tissue Perfusion - Arterial Goal: Tissue perfusion is adequate - arterial Description: Assess and monitor skin color and temperature, skin integrity, pulses, capillary refill, edema, pain in extremities, and labs. Assess patients feelings of being cold and apply more clothing/blankets as needed to maintain vasodilation. Collaborate with interdisciplinary team and initiate plans and interventions as needed. Outcome: Progressing Problem: Inadequate Tissue Perfusion - Venous Goal: Tissue perfusion is adequate - venous Description: Assess and monitor skin color and temperature, skin integrity, pulses, capillary refill, edema, pain in extremities, Homans' sign, labs (D- dimer), and diagnostic tests (ultrasound, CT scan, VQ scan). Monitor for signs and symptoms of deep vein thrombosis (swelling of calf/thigh, redness, pain, tenderness). Monitor for signs and symptoms of pulmonary embolism (dyspnea, tachypnea, tachycardia). Collaborate with interdisciplinary team and initiate plans and interventions as needed. Outcome: Progressing * Nursing Progress Notes - Rosmery Bowie RN - 11/01/2023 11:52 AM EDTSummary: Wound Care Note Images from the original note were not included. WCN consulted to assess BLE. WCN performed assessment via EHR photos and made recommendations for dry legs to BLE. If any changes to skin integrity please consult wound care dept. Ongoing POC. * Plan of Care - Kobe Garcia - 10/31/2023 12:25 AM EDT Problem: Compromised Skin Integrity Goal: LTG - Patient will be free from infection Outcome: Progressing Goal: LTG - Patient will maintain/improve skin integrity through proper skin care techniques Outcome: Progressing Goal: LTG - Patient will demonstrate appropriate pressure relief techniques Outcome: Progressing Goal: LTG - Patient will demonstrate appropriate skin care techniques Outcome: Progressing Goal: LTG - Patient will be free from infection Outcome: Progressing Goal: STG - Patient demonstrates skin care/treatment/dressing change Outcome: Progressing Goal: STG - Patient will maintain good skin integrity Outcome: Progressing Goal: STG - Patient exhibits signs of wound healing. Outcome: Progressing Goal: STG - Patient demonstrates pressure reduction techniques Outcome: Progressing Goal: STG - Patient demonstrates preventative skin care measures Outcome: Progressing Problem: Knowledge Deficit Goal: Patient/family/caregiver demonstrates understanding of disease process, treatment plan, medications, and discharge instructions Description: Complete learning assessment and assess knowledge base. Outcome: Progressing Problem: Potential for Falls Goal: Patient will remain free of falls Description: Assess and monitor vitals signs, neurological status including level of consciousness and orientation. Reassess fall risk per hospital policy. Ensure arm band on, uncluttered walking paths in room, adequate room lighting, call light and overbed table within reach, bed in low position, wheels locked, side rails up per policy, and non-skid footwear provided. Outcome: Progressing Problem: Anxiety Goal: Anxiety is at manageable level Description: Assess and monitor patient's anxiety level. Monitor for signs and symptoms of anxiety both physical and emotional (heart palpitations, chest pain, shortness of breath, headaches, nausea,feeling jumpy, restlessness, irritable, apprehensive). Collaborate with interdisciplinary team and initiate plan and interventions as ordered. Outcome: Progressing Problem: Hemodynamic Status Goal: Patient's vitals signs are stable Description: Assess and monitor patient's heart rate, rhythm, respiratory rate, peripheral pulses, capillary refill, color, body temperature, intake and output, labs and physical activity tolerance. Observe for signs of chest pain (note location, duration, severity, radiation and associated symptoms such as diaphoresis, nausea, indigestion). Monitor for signs and symptoms of heart failure (eg. shortness of breath, edema of feet/ankles/legs, rapid irregular heart rate, coughing, wheezing, white/pink blood tinged sputum, sudden weight gain, chest pain). Collaborate with interdisciplinary team and initiate plan and interventions as ordered. Outcome: Progressing Problem: Activity Intolerance/Impaired Mobility Goal: Mobility/activity is maintained at optimum level for patient Description: Assess and monitor patient barriers to mobility and need for assistive/adaptive devices. Assess patient's emotional response to limitations. Collaborate with interdisciplinary team and initiate plans and interventions as ordered. Outcome: Progressing Problem: Nutrition Goal: Nutritional status is improving Description: Monitor and assess patient for malnutrition (ex- brittle hair, bruises, dry skin, paleskin and conjunctiva, muscle wasting, smooth red tongue, and disorientation). Collaborate with interdisciplinary team and initiate plan and interventions as ordered. Monitor patient's weight and dietary intake as ordered or per policy. Utilize nutrition screening tool and intervene per policy. Determine patient's food preferences and provide high-protein, high- caloric foods as appropriate. Outcome: Progressing Problem: CV: Dysrhythmia Goal: Patient achieves/maintains stable cardiac rhythm Outcome: Progressing Problem: Inadequate Tissue Perfusion - Arterial Goal: Tissue perfusion is adequate - arterial Description: Assess and monitor skin color and temperature, skin integrity, pulses, capillary refill, edema, pain in extremities, and labs. Assess patients feelings of being cold and apply more clothing/blankets as needed to maintain vasodilation. Collaborate with interdisciplinary team and initiate plans and interventions as needed. Outcome: Progressing Problem: Inadequate Tissue Perfusion - Venous Goal: Tissue perfusion is adequate - venous Description: Assess and monitor skin color and temperature, skin integrity, pulses, capillary refill, edema, pain in extremities, Homans' sign, labs (D- dimer), and diagnostic tests (ultrasound, CT scan, VQ scan). Monitor for signs and symptoms of deep vein thrombosis (swelling of calf/thigh, redness, pain, tenderness). Monitor for signs and symptoms of pulmonary embolism (dyspnea, tachypnea, tachycardia). Collaborate with interdisciplinary team and initiate plans and interventions as needed. Outcome: Progressing Problem: Compromised Skin Integrity Goal: LTG - Patient will be free from infection Outcome: Progressing Goal: LTG - Patient will maintain/improve skin integrity through proper skin care techniques Outcome: Progressing Goal: LTG - Patient will demonstrate appropriate pressure relief techniques Outcome: Progressing Goal: LTG - Patient will demonstrate appropriate skin care techniques Outcome: Progressing Goal: LTG - Patient will be free from infection Outcome: Progressing Goal: STG - Patient demonstrates skin care/treatment/dressing change Outcome: Progressing Goal: STG - Patient will maintain good skin integrity Outcome: Progressing Goal: STG - Patient exhibits signs of wound healing. Outcome: Progressing Goal: STG - Patient demonstrates pressure reduction techniques Outcome: Progressing Goal: STG - Patient demonstrates preventative skin care measures Outcome: Progressing Problem: Knowledge Deficit Goal: Patient/family/caregiver demonstrates understanding of disease process, treatment plan, medications, and discharge instructions Description: Complete learning assessment and assess knowledge base. Outcome: Progressing Problem: Potential for Falls Goal: Patient will remain free of falls Description: Assess and monitor vitals signs, neurological status including level of consciousness and orientation. Reassess fall risk per hospital policy. Ensure arm band on, uncluttered walking paths in room, adequate room lighting, call light and overbed table within reach, bed in low position, wheels locked, side rails up per policy, and non-skid footwear provided. Outcome: Progressing Problem: Anxiety Goal: Anxiety is at manageable level Description: Assess and monitor patient's anxiety level. Monitor for signs and symptoms of anxiety both physical and emotional (heart palpitations, chest pain, shortness of breath, headaches, nausea,feeling jumpy, restlessness, irritable, apprehensive). Collaborate with interdisciplinary team and initiate plan and interventions as ordered. Outcome: Progressing Problem: Hemodynamic Status Goal: Patient's vitals signs are stable Description: Assess and monitor patient's heart rate, rhythm, respiratory rate, peripheral pulses, capillary refill, color, body temperature, intake and output, labs and physical activity tolerance. Observe for signs of chest pain (note location, duration, severity, radiation and associated symptoms such as diaphoresis, nausea, indigestion). Monitor for signs and symptoms of heart failure (eg. shortness of breath, edema of feet/ankles/legs, rapid irregular heart rate, coughing, wheezing, white/pink blood tinged sputum, sudden weight gain, chest pain). Collaborate with interdisciplinary team and initiate plan and interventions as ordered. Outcome: Progressing Problem: Activity Intolerance/Impaired Mobility Goal: Mobility/activity is maintained at optimum level for patient Description: Assess and monitor patient barriers to mobility and need for assistive/adaptive devices. Assess patient's emotional response to limitations. Collaborate with interdisciplinary team and initiate plans and interventions as ordered. Outcome: Progressing Problem: Nutrition Goal: Nutritional status is improving Description: Monitor and assess patient for malnutrition (ex- brittle hair, bruises, dry skin, paleskin and conjunctiva, muscle wasting, smooth red tongue, and disorientation). Collaborate with interdisciplinary team and initiate plan and interventions as ordered. Monitor patient's weight and dietary intake as ordered or per policy. Utilize nutrition screening tool and intervene per policy. Determine patient's food preferences and provide high-protein, high- caloric foods as appropriate. Outcome: Progressing Problem: CV: Dysrhythmia Goal: Patient achieves/maintains stable cardiac rhythm Outcome: Progressing Problem: Inadequate Tissue Perfusion - Arterial Goal: Tissue perfusion is adequate - arterial Description: Assess and monitor skin color and temperature, skin integrity, pulses, capillary refill, edema, pain in extremities, and labs. Assess patients feelings of being cold and apply more clothing/blankets as needed to maintain vasodilation. Collaborate with interdisciplinary team and initiate plans and interventions as needed. Outcome: Progressing Problem: Inadequate Tissue Perfusion - Venous Goal: Tissue perfusion is adequate - venous Description: Assess and monitor skin color and temperature, skin integrity, pulses, capillary refill, edema, pain in extremities, Homans' sign, labs (D- dimer), and diagnostic tests (ultrasound, CT scan, VQ scan). Monitor for signs and symptoms of deep vein thrombosis (swelling of calf/thigh, redness, pain, tenderness). Monitor for signs and symptoms of pulmonary embolism (dyspnea, tachypnea, tachycardia). Collaborate with interdisciplinary team and initiate plans and interventions as needed. Outcome: Progressing * Plan of Care - Jacque Flores RN - 10/29/2023 3:38 PM EDT Problem: Compromised Skin Integrity Goal: LTG - Patient will be free from infection Outcome: Progressing Goal: LTG - Patient will maintain/improve skin integrity through proper skin care techniques Outcome: Progressing Goal: LTG - Patient will demonstrate appropriate pressure relief techniques Outcome: Progressing Goal: LTG - Patient will demonstrate appropriate skin care techniques Outcome: Progressing Goal: LTG - Patient will be free from infection Outcome: Progressing Goal: STG - Patient demonstrates skin care/treatment/dressing change Outcome: Progressing Goal: STG - Patient will maintain good skin integrity Outcome: Progressing Goal: STG - Patient exhibits signs of wound healing. Outcome: Progressing Goal: STG - Patient demonstrates pressure reduction techniques Outcome: Progressing Goal: STG - Patient demonstrates preventative skin care measures Outcome: Progressing Problem: Knowledge Deficit Goal: Patient/family/caregiver demonstrates understanding of disease process, treatment plan, medications, and discharge instructions Description: Complete learning assessment and assess knowledge base. Outcome: Progressing Problem: Potential for Falls Goal: Patient will remain free of falls Description: Assess and monitor vitals signs, neurological status including level of consciousness and orientation. Reassess fall risk per hospital policy. Ensure arm band on, uncluttered walking paths in room, adequate room lighting, call light and overbed table within reach, bed in low position, wheels locked, side rails up per policy, and non-skid footwear provided. Outcome: Progressing Problem: Anxiety Goal: Anxiety is at manageable level Description: Assess and monitor patient's anxiety level. Monitor for signs and symptoms of anxiety both physical and emotional (heart palpitations, chest pain, shortness of breath, headaches, nausea,feeling jumpy, restlessness, irritable, apprehensive). Collaborate with interdisciplinary team and initiate plan and interventions as ordered. Outcome: Progressing Problem: Hemodynamic Status Goal: Patient's vitals signs are stable Description: Assess and monitor patient's heart rate, rhythm, respiratory rate, peripheral pulses, capillary refill, color, body temperature, intake and output, labs and physical activity tolerance. Observe for signs of chest pain (note location, duration, severity, radiation and associated symptoms such as diaphoresis, nausea, indigestion). Monitor for signs and symptoms of heart failure (eg. shortness of breath, edema of feet/ankles/legs, rapid irregular heart rate, coughing, wheezing, white/pink blood tinged sputum, sudden weight gain, chest pain). Collaborate with interdisciplinary team and initiate plan and interventions as ordered. Outcome: Progressing Problem: Activity Intolerance/Impaired Mobility Goal: Mobility/activity is maintained at optimum level for patient Description: Assess and monitor patient barriers to mobility and need for assistive/adaptive devices. Assess patient's emotional response to limitations. Collaborate with interdisciplinary team and initiate plans and interventions as ordered. Outcome: Progressing Problem: Nutrition Goal: Nutritional status is improving Description: Monitor and assess patient for malnutrition (ex- brittle hair, bruises, dry skin, paleskin and conjunctiva, muscle wasting, smooth red tongue, and disorientation). Collaborate with interdisciplinary team and initiate plan and interventions as ordered. Monitor patient's weight and dietary intake as ordered or per policy. Utilize nutrition screening tool and intervene per policy. Determine patient's food preferences and provide high-protein, high- caloric foods as appropriate. Outcome: Progressing Problem: CV: Dysrhythmia Goal: Patient achieves/maintains stable cardiac rhythm Outcome: Progressing Problem: Inadequate Tissue Perfusion - Arterial Goal: Tissue perfusion is adequate - arterial Description: Assess and monitor skin color and temperature, skin integrity, pulses, capillary refill, edema, pain in extremities, and labs. Assess patients feelings of being cold and apply more clothing/blankets as needed to maintain vasodilation. Collaborate with interdisciplinary team and initiate plans and interventions as needed. Outcome: Progressing Problem: Inadequate Tissue Perfusion - Venous Goal: Tissue perfusion is adequate - venous Description: Assess and monitor skin color and temperature, skin integrity, pulses, capillary refill, edema, pain in extremities, Homans' sign, labs (D- dimer), and diagnostic tests (ultrasound, CT scan, VQ scan). Monitor for signs and symptoms of deep vein thrombosis (swelling of calf/thigh, redness, pain, tenderness). Monitor for signs and symptoms of pulmonary embolism (dyspnea, tachypnea, tachycardia). Collaborate with interdisciplinary team and initiate plans and interventions as needed. Outcome: Progressing documented in this encounter Plan of Treatment Not on file documented as of this encounter Procedures Procedure Name Priority Date/Time Associated Diagnosis Comments NOVA GLUCOSE POC Routine 11/08/2023 12:1 1 PM EDT XR CHEST AP PORTABLE Routine 11/08/2023 8:15 AM EDT NOVA GLUCOSE POC Routine 11/08/2023 7:31 AM EDT CBC W/ AUTO DIFF Routine 11/08/2023 5:47 AM EDT MAGNESIUM Routine 11/08/2023 5:47 AM EDT BASIC METABOLIC PANEL Routine 11/08/2023 5:47 AM EDT NOVA GLUCOSE POC Routine 11/07/2023 9:47 PM EDT NOVA GLUCOSE POC Routine 11/07/2023 5:39 PM EDT NOVA GLUCOSE POC Routine 11/07/2023 11:1 5 AM EDT CBC W/ AUTO DIFF Routine 11/07/2023 8:39 AM EDT MAGNESIUM Routine 11/07/2023 8:39 AM EDT BASIC METABOLIC PANEL Routine 11/07/2023 8:39 AM EDT NOVA GLUCOSE POC Routine 11/07/2023 7:38 AM EDT XR CHEST AP PORTABLE Routine 11/07/2023 7:16 AM EDT NOVA GLUCOSE POC Routine 11/06/2023 7:51 PM EDT NOVA GLUCOSE POC Routine 11/06/2023 4:17 PM EDT NOVA GLUCOSE POC Routine 11/06/2023 11:0 3 AM EDT XR CHEST AP PORTABLE Routine 11/06/2023 8:05 AM EDT NOVA GLUCOSE POC Routine 11/06/2023 7:13 AM EDT MAGNESIUM Routine 11/06/2023 4:58 AM EDT BASIC METABOLIC PANEL Routine 11/06/2023 4:58 AM EDT CBC W/ AUTO DIFF Routine 11/06/2023 4:57 AM EDT MANUAL DIFFERENTIAL Routine 11/06/2023 4 :57 AM EDT NOVA GLUCOSE POC Routine 11/05/2023 7:28 PM EDT NOVA GLUCOSE POC Routine 11/05/2023 5:14 PM EDT NOVA GLUCOSE POC Routine 11/05/2023 11:1 0 AM EDT XR CHEST AP PORTABLE Routine 11/05/2023 7:45 AM EDT NOVA GLUCOSE POC Routine 11/05/2023 7:30 AM EDT CBC W/ AUTO DIFF Routine 11/05/2023 3:27 AM EDT MANUAL DIFFERENTIAL Routine 11/05/2023 3 :27 AM EDT MAGNESIUM Routine 11/05/2023 3:27 AM EDT BASIC METABOLIC PANEL Routine 11/05/2023 3:27 AM EDT NOVA GLUCOSE POC Routine 11/04/2023 8:25 PM EDT NOVA GLUCOSE POC Routine 11/04/2023 4:19 PM EDT CBC W/ AUTO DIFF Routine 11/04/2023 2:48 PM EDT MAGNESIUM Routine 11/04/2023 2:48 PM EDT BASIC METABOLIC PANEL Routine 11/04/2023 2:48 PM EDT NOVA GLUCOSE POC Routine 11/04/2023 10:4 7 AM EDT NOVA GLUCOSE POC Routine 11/04/2023 8:40 AM EDT XR CHEST AP PORTABLE Routine 11/04/2023 8:05 AM EDT MAGNESIUM Routine 11/04/2023 4:55 AM EDT NOVA GLUCOSE POC Routine 11/03/2023 8:34 PM EDT NOVA GLUCOSE POC Routine 11/03/2023 4:53 PM EDT NOVA GLUCOSE POC Routine 11/03/2023 11:2 3 AM EDT XR CHEST AP PORTABLE Routine 11/03/2023 9:53 AM EDT NOVA GLUCOSE POC Routine 11/03/2023 8:10 AM EDT MAGNESIUM Routine 11/03/2023 5:38 AM EDT BASIC METABOLIC PANEL Add-On 11/03/2023 5:38 AM EDT NOVA GLUCOSE POC Routine 11/02/2023 4:40 PM EDT NOVA GLUCOSE POC Routine 11/02/2023 12:1 4 PM EDT XR CHEST AP PORTABLE STAT 11/02/2023 10:42 AM EDT NOVA GLUCOSE POC Routine 11/02/2023 7:38 AM EDT MAGNESIUM Routine 11/02/2023 4:30 AM EDT BASIC METABOLIC PANEL Routine 11/02/2023 4:30 AM EDT NOVA GLUCOSE POC Routine 11/01/2023 7:28 PM EDT NOVA GLUCOSE POC Routine 11/01/2023 3:59 PM EDT NOVA GLUCOSE POC Routine 11/01/2023 11:4 9 AM EDT NOVA GLUCOSE POC Routine 11/01/2023 7:44 AM EDT CBC HEMOGRAM (SJ-BKR) Routine 11/01/2023 5:29 AM EDT MAGNESIUM Routine 11/01/2023 5:29 AM EDT BASIC METABOLIC PANEL Routine 11/01/2023 5:29 AM EDT NOVA GLUCOSE POC Routine 10/31/2023 7:47 PM EDT NOVA GLUCOSE POC Routine 10/31/2023 4:37 PM EDT NOVA GLUCOSE POC Routine 10/31/2023 12:1 3 PM EDT NOVA GLUCOSE POC Routine 10/31/2023 7:53 AM EDT CBC HEMOGRAM (SJ-BKR) Routine 10/31/2023 4:36 AM EDT MAGNESIUM Routine 10/31/2023 4:36 AM EDT BASIC METABOLIC PANEL Routine 10/31/2023 4:36 AM EDT NOVA GLUCOSE POC Routine 10/30/2023 8:43 PM EDT NOVA GLUCOSE POC Routine 10/30/2023 4:33 PM EDT ECHO COMPLETE (DOPPLER / COLOR) WO CONTRAST Routine 10/30/2023 1:00 PM EDT NOVA GLUCOSE POC Routine 10/30/2023 11:1 5 AM EDT XR CHEST AP PORTABLE Routine 10/30/2023 9:57 AM EDT NOVA GLUCOSE POC Routine 10/30/2023 7:36 AM EDT CBC W/ AUTO DIFF Routine 10/30/2023 4:39 AM EDT MAGNESIUM Routine 10/30/2023 4:39 AM EDT LIPID PANEL Add-On 10/30/2023 4:39 AM EDT COMPREHENSIVE METABOLIC PANEL Routine 10/30/2023 4:39 AM EDT NOVA GLUCOSE POC Routine 10/29/2023 8:37 PM EDT NOVA GLUCOSE POC Routine 10/29/2023 7:23 PM EDT FS_MODEL_IP_ECG 12-LEAD Routine 10/29/2023 6:24 PM EDT TSH W REFLEX FT4 Routine 10/29/2023 5:50 PM EDT PROBNP Routine 10/29/2023 5:50 PM EDT MAGNESIUM Routine 10/29/2023 5:50 PM EDT NOVA GLUCOSE POC Routine 10/29/2023 4:28 PM EDT EKG-SCANNED 10/29/2023 documented in this encounter Results * (ABNORMAL) Glucose, Nova Meter (11/08/2023 12:11 PM EDT) [facility] POC-GLUCOSE 142(H) 70 - 110 mg/dL 11/08/2023 12:[address] [facility] Comment: In the event of poor peripheral blood flow, venous or arterial blood should be used due to the potential of erroneous results. Notified Nurse RBV Loom Operator Apprentice [phone] 11/08/2023 12:[address] [facility] Blood WHOLE BLOOD / Unknown 11/08/2023 12:11 PM EDT 11/08/2023 12:[address] [facility] - 11/08/2023 12:12 PM EDT Loom Operator Apprentice ID is - [id number] us Ismaeel Romulo DO POINT OF CARE TEST ORDERABLES Final Result [facility] [address] [phone] * XR chest AP portable (11/08/2023 8:15 AM EDT) Anatomical Region Laterality Modality Chest X-Ray 11/08/2023 9:30 AM EDT Impressions 11/08/2023 10:32 AM EDT Stable cardiomegaly with increased interstitial markings, may represent mild pulmonary edema. Small bilateral pleural effusions. Images reviewed, interpreted, and dictated by Dr. Cathryn Leone. Transcribed by Lia Hawk PA-C. Narrative 11/08/2023 10:32 AM EDT PORTABLE CHEST; ?? HISTORY: Respiratory failure. COMPARISON: 1 day prior. FINDINGS: The heart is enlarged and stable in size. ??The mediastinum is unremarkable. There are increased interstitial markings that appear unchanged and may represent mild edema. There are small bilateral pleural effusions. There is no pneumothorax. ?? Procedure Note Cathryn Leone MD - 11/08/2023 PORTABLE CHEST; HISTORY: Respiratory failure. COMPARISON: 1 day prior. FINDINGS: The heart is enlarged and stable in size. The mediastinum is unremarkable. There are increased interstitial markings that appear unchanged and may represent mild edema. There are small bilateral pleural effusions. There is no pneumothorax. IMPRESSION: Stable cardiomegaly with increased interstitial markings, may represent mild pulmonary edema. Small bilateral pleural effusions. Images reviewed, interpreted, and dictated by Dr. Cathryn Leone. Transcribed by Lia Hawk PA-C. us Ismaeel Romulo DO IMG DIAGNOSTIC IMAGING ORDERA BLES Final Result * Glucose, Nova Meter (11/08/2023 7:31 AM EDT) Pathologist [facility] POC-GLUCOSE 98 70 - 110 mg/dL 11/08/2023 7:[address] [facility] Comment: In the event of poor peripheral blood flow, venous or arterial blood should be used due to the potential of erroneous results. Notified Nurse RBV Loom Operator Apprentice [phone] 11/08/2023 7:[address] [facility] Blood WHOLE BLOOD / Unknown 11/08/2023 7:31 AM EDT 11/08/2023 7:[address] [facility] - 11/08/2023 7:33 AM EDT Loom Operator Apprentice ID is - [id number] us Ismaeel Romulo DO POINT OF CARE TEST ORDERABLES Final Result [facility] [address] [phone] * (ABNORMAL) Basic Metabolic Panel (11/08/2023 5:47 AM EDT) [facility] Sodium 139 136 - 146 meq/L 11/08/2023 7:[address] [facility] Potassium 4.9 3.5 - 5.1 meq/L 11/08/2023 7:[address] [facility] Chloride 104 102 - 112 meq/L 11/08/2023 7:[address] [facility] CO2 31 21 - 32 meq/L 11/08/2023 7:[address] [facility] Anion Gap 9 9 - 20 11/08/2023 7:[address] [facility] BUN 66(H) 7 - 22 mg/dL 11/08/2023 7:[address] [facility] Creatinine 3.16(H) 0.70 - 1.30 mg/dL 11/08/2023 7:[address] [facility] BUN/Creatinine 21(H) 8 - 20 11/08/2023 7:[address] [facility] Glucose 108(H) 74 - 106 mg/dL 11/08/2023 7:[address] [facility] Calcium 9.1 8.4 - 10.1 mg/dL 11/08/2023 7:[address] [facility] Osmolality Calc 297.1 7:[address] [facility] eGFR (mL/min/1.73m2) 22(L) >=60 mL/min/1.7 3m2 11/08/2023 7:[address] [facility] Comment:eGFR of <60 suggests chronic kidney disease if found over a 3 month period of time. eGFR <15 indicates renal failure. Blood Venipuncture / Unknown 11/08/2023 5:47 AM EDT 11/08/2023 6:12 AM EDT us Ismaeel Romulo DO LAB BLOOD ORDERABLES Final Re sult [facility] [address] [place] [address] * (ABNORMAL) CBC with automated diff (11/08/2023 5:47 AM EDT) WBC 4.4 4.2 - 9.1 K/??L 11/08/2023 6:[address] [facility] RBC 4.09(L) 4.63 - 6.08 M/??L 11/08/2023 6:[address] [facility] Hemoglobin 10.0(L) 13.7 - 17.5 GM/DL 11/08/2023 6:[address] [facility] Hematocrit 33.2(L) 40.1 - 51.0 % 11/08/2023 6:[address] [facility] MCV 81 79 - 92 fL 11/08/2023 6:[address] [facility] MCH 24.4(L) 25.7 - 32.2 pg 11/08/2023 6:[address] [facility] MCHC 30.1(L) 32.3 - 36.5 GM/DL 11/08/2023 6:[address] [facility] RDW 16.7(H) 11.6 - 14.4 % 11/08/2023 6:[address] [facility] Platelets 198 140 - 375 K/CU MM 11/08/2023 6:[address] [facility] MPV 11.2 9.4 - 12.4 fL 11/08/2023 6:[address] [facility] % Neutros 55 34 - 68 % 11/08/2023 6:[address] [facility] % Lymphs 31 22 - 53 % 11/08/2023 6:[address] [facility] % Monos 10 5 - 12 % 11/08/2023 6:[address] [facility] % Eos 3 1 - 7 % 11/08/2023 6:[address] [facility] % Baso 1 0 - 1 % 11/08/2023 6:[address] [facility] NRBC Absolute <0.01 0 - 0.012 K/ul 11/08/2023 6:[address] [facility] # Neutros 2.41 1.78 - 5.38 K/??L 11/08/2023 6:[address] [facility] # Lymphs 1.34 1.32 - 3.57 K/??L 11/08/2023 6:[address] [facility] # Monos 0.45 0.30 - 0.82 K/??L 11/08/2023 6:[address] [facility] # Eos 0.14 0.04 - 0.54 K/??L 11/08/2023 6:[address] [facility] # Baso 0.03 0.01 - 0.08 K/??L 11/08/2023 6:[address] [facility] Immature Granulocytes-Re lative 0.20 0.01 - 0.43 % 11/08/2023 6:[address] [facility] # IG <0.03 0.00 - 0.03 K/uL 11/08/2023 6:[address] [facility] Blood Venipuncture / Unknown 11/08/2023 5:47 AM EDT 11/08/2023 6:[address] [facility] - 11/08/2023 6:25 AM EDT When CBC w/ Auto Diff is ordered the lab will add a Manual Differential as a quality check at no additional charge if: Lymphocytes greater than seventy five percent with normal or increased WBC Monocytes greater than Fifteen percent Basophil greater than four percent Bands >10% or several immature myeloids are seen on scan Blast? Flag noted Atypical Lymph flag noted Note: reference ranges were changed on 04/27/2023. us Ismaeel Romulo DO LAB BLOOD ORDERABLES Final Re sult Performing Organization Address [facility]/ZIP Co de Phone Number [facility] [address] [phone] * Magnesium (11/08/2023 5:47 AM EDT) Pathologist [facility] Magnesium 2.0 1.5 - 2.4 mg/dL 11/08/2023 7:[address] [facility] Blood Venipuncture / Unknown 11/08/2023 5:47 AM EDT 11/08/2023 6:12 AM EDT us Ismaeel Romulo DO LAB BLOOD ORDERABLES Final Re sult Performing Organization Address [facility]/State/ZIP Co de Phone Number [facility] [address] [phone] * (ABNORMAL) Glucose, Nova Meter (11/07/2023 9:47 PM EDT) POC-GLUCOSE 191(H) 70 - 110 mg/dL 11/07/2023 9:[address] [facility] Comment:In the event of poor peripheral blood flow, venous or arterial blood should be used due to the potential of erroneous results. Loom Operator Apprentice [phone] 11/07/2023 9:[address] [facility] Blood WHOLE BLOOD / Unknown 11/07/2023 9:47 PM EDT 11/07/2023 9:[address] [facility] - 11/07/2023 9:48 PM EDT Loom Operator Apprentice ID is - [id number] us Ismaeel Romulo DO POINT OF CARE TEST ORDERABLES Final Result Performing Organization Address [facility] Co de Phone Number [facility] [address] [phone] * (ABNORMAL) Glucose, Nova Meter (11/07/2023 5:39 PM EDT) POC-GLUCOSE 165(H) 70 - 110 mg/dL 11/07/2023 5:[address] [facility] Comment: In the event of poor peripheral blood flow, venous or arterial blood should be used due to the potential of erroneous results. Notified Nurse RBV Loom Operator Apprentice [phone] 11/07/2023 5:[address] [facility] Blood WHOLE BLOOD / Unknown 11/07/2023 5:39 PM EDT 11/07/2023 5:[address] [facility] - 11/07/2023 5:41 PM EDT Loom Operator Apprentice ID is - [id number] us IsksNewstagl Romulo DO POINT OF CARE TEST ORDERABLES Final Result Performing Organization Address [facility] [place] [facility] Co de Phone Number [facility] [address] [place] [address], [facility] [phone] * (ABNORMAL) Glucose, Nova Meter (11/07/2023 11:15 AM EDT) POC-GLUCOSE 180(H) 70 - 110 mg/dL 11/07/2023 11:[address] [facility] Comment: In the event of poor peripheral blood flow, venous or arterial blood should be used due to the potential of erroneous results. Notified Nurse RBV Loom Operator Apprentice [phone] 11/07/2023 11:[address] [facility] Blood WHOLE BLOOD / Unknown 11/07/2023 11:15 AM EDT 11/07/2023 11:[address] [facility] - 11/07/2023 11:20 AM EDT Loom Operator Apprentice ID is - [id number] Ismaeel Romulo DO POINT OF CARE TEST ORDERABLES Final Result [facility] [address] [phone] * (ABNORMAL) Basic Metabolic Panel (11/07/2023 8:39 AM EDT) Sodium 137 136 - 146 meq/L 11/07/2023 9:[address] [facility] Potassium 4.6 3.5 - 5.1 meq/L 11/07/2023 9:[address] [facility] Chloride 105 102 - 112 meq/L 11/07/2023 9:[address] [facility] CO2 29 21 - 32 meq/L 11/07/2023 9:[address] [facility] Anion Gap 8(L) 9 - 20 11/07/2023 9:[address] [facility] BUN 61(H) 7 - 22 mg/dL 11/07/2023 9:[address] [facility] Creatinine 3.00(H) 0.70 - 1.30 mg/dL 11/07/2023 9:[address] [facility] BUN/Creatinine 20 8 - 20 11/07/2023 9:[address] [facility] Glucose 118(H) 74 - 106 mg/dL 11/07/2023 9:[address] [facility] Calcium 8.6 8.4 - 10.1 mg/dL 11/07/2023 9:[address] [facility] Osmolality Calc 292.2 9:[address] [facility] eGFR (mL/min/1.73m2) 24(L) >=60 mL/min/1.7 3m2 11/07/2023 9:[address] [facility] Comment:eGFR of <60 suggests chronic kidney disease if found over a 3 month period of time. eGFR <15 indicates renal failure. Blood Venipuncture / Unknown 11/07/2023 8:39 AM EDT 11/07/2023 8:49 AM EDT us Ismaeel Romulo DO LAB BLOOD ORDERABLES Final Re sult [facility] [address] [phone] * (ABNORMAL) CBC with automated diff (11/07/2023 8:39 AM EDT) WBC 4.3 4.2 - 9.1 K/??L 11/07/2023 8:[address] [facility] RBC 4.31(L) 4.63 - 6.08 M/??L 11/07/2023 8:[address] [facility] Hemoglobin 10.5(L) 13.7 - 17.5 GM/DL 11/07/2023 8:[address] [facility] Hematocrit 34.9(L) 40.1 - 51.0 % 11/07/2023 8:[address] [facility] MCV 81 79 - 92 fL 11/07/2023 8:[address] [facility] MCH 24.4(L) 25.7 - 32.2 pg 11/07/2023 8:[address] [facility] MCHC 30.1(L) 32.3 - 36.5 GM/DL 11/07/2023 8:[address] [facility] RDW 16.7(H) 11.6 - 14.4 % 11/07/2023 8:[address] [facility] Platelets 191 140 - 375 K/CU MM 11/07/2023 8:[address] [facility] MPV 10.6 9.4 - 12.4 fL 11/07/2023 8:[address] [facility] % Neutros 58 34 - 68 % 11/07/2023 8:[address] [facility] % Lymphs 30 22 - 53 % 11/07/2023 8:[address] [facility] % Monos 10 5 - 12 % 11/07/2023 8:[address] [facility] % Eos 2 1 - 7 % 11/07/2023 8:[address] [facility] % Baso 1 0 - 1 % 11/07/2023 8:[address] [facility] NRBC Absolute <0.01 0 - 0.012 K/ul 11/07/2023 8:[address] [facility] # Neutros 2.48 1.78 - 5.38 K/??L 11/07/2023 8:[address] [facility] # Lymphs 1.27(L) 1.32 - 3.57 K/??L 11/07/2023 8:[address] [facility] # Monos 0.43 0.30 - 0.82 K/??L 11/07/2023 8:[address] [facility] # Eos 0.08 0.04 - 0.54 K/??L 11/07/2023 8:[address] [facility] # Baso <0.03 0.01 - 0.08 K/??L 11/07/2023 8:[address] [facility] Immature Granulocytes-Re lative 0.50(H) 0.01 - 0.43 % 11/07/2023 8:[address] [facility] # IG <0.03 0.00 - 0.03 K/uL 11/07/2023 8:[address] [facility] Blood Venipuncture / Unknown 11/07/2023 8:39 AM EDT 11/07/2023 8:49 AM EDT [facility] - 11/07/2023 8:53 AM EDT When CBC w/ Auto Diff is ordered the lab will add a Manual Differential as a quality check at no additional charge if: Lymphocytes greater than seventy five percent with normal or increased WBC Monocytes greater than Fifteen percent Basophil greater than four percent Bands >10% or several immature myeloids are seen on scan Blast? Flag noted Atypical Lymph flag noted Note: reference ranges were changed on 04/27/2023. us Ismaeel Romulo DO LAB BLOOD ORDERABLES Final Re sult Performing Organization Address City/[facility]/ZIP Co de Phone Number [facility] [address] [phone] * Magnesium (11/07/2023 8:39 AM EDT) [facility] Magnesium 2.0 1.5 - 2.4 mg/dL 11/07/2023 9:[address] [facility] Blood Venipuncture / Unknown 11/07/2023 8:39 AM EDT 11/07/2023 8:49 AM EDT us Ismaeel Romulo DO LAB BLOOD ORDERABLES Final Re sult Performing Organization Address [facility] Co de Phone Number [facility] [address] [phone] * (ABNORMAL) Glucose, Nova Meter (11/07/2023 7:38 AM EDT) [facility] POC-GLUCOSE 115(H) 70 - 110 mg/dL 11/07/2023 7:[address] [facility] Comment: In the event of poor peripheral blood flow, venous or arterial blood should be used due to the potential of erroneous results. Notified Nurse RBV Loom Operator Apprentice [phone] 11/07/2023 7:[address] [facility] Blood WHOLE BLOOD / Unknown 11/07/2023 7:38 AM EDT 11/07/2023 7:[address] [facility] - 11/07/2023 7:40 AM EDT Loom Operator Apprentice ID is - [id number] us Ismaeel Romulo DO POINT OF CARE TEST ORDERABLES Final Result [facility] [address] [phone] * XR chest AP portable (11/07/2023 7:16 AM EDT) Anatomical Region Laterality Modality Chest X-Ray 11/07/2023 8:43 AM EDT Impressions 11/07/2023 9:03 AM EDT No significant interval change. Images reviewed, interpreted, and dictated by Dr. Enzo Alonso. Transcribed by Kayla Shaffer PA-C. Narrative 11/07/2023 9:03 AM EDT PORTABLE CHEST. ?11/07/2023 7:11 AM HISTORY: Shortness of breath, CHF. COMPARISON: 1 day prior. FINDINGS: The cardiac silhouette demonstrates cardiomegaly. The mediastinum is unremarkable. There is no change in the pulmonary vascular congestion and probable mild interstitial edema. There are no significant pleural effusions. There is no pneumothorax. Procedure Note Enzo Alonso MD - 11/07/2023 PORTABLE CHEST. 11/07/2023 7:11 AM HISTORY: Shortness of breath, CHF. COMPARISON: 1 day prior. FINDINGS: The cardiac silhouette demonstrates cardiomegaly. The mediastinum is unremarkable. There is no change in the pulmonary vascular congestion and probable mild interstitial edema. There are no significant pleural effusions. There is no pneumothorax. IMPRESSION: No significant interval change. Images reviewed, interpreted, and dictated by Dr. Enzo Alonso. Transcribed by Kayla Shaffer PA-C. us Ismaeel Romulo DO IMG DIAGNOSTIC IMAGING ORDERA BLES Final Result * (ABNORMAL) Glucose, Nova Meter (11/06/2023 7:51 PM EDT) POC-GLUCOSE 163(H) 70 - 110 mg/dL 11/06/2023 7:[address] [facility] Comment: In the event of poor peripheral blood flow, venous or arterial blood should be used due to the potential of erroneous results. Notified Nurse RBV Loom Operator Apprentice [phone] 11/06/2023 7:[address] [facility] Blood WHOLE BLOOD / Unknown 11/06/2023 7:51 PM EDT 11/06/2023 7:[address] [facility] - 11/06/2023 7:53 PM EDT Loom Operator Apprentice ID is - [id number] us Ismaeel Romulo DO POINT OF CARE TEST ORDERABLES Final Result Performing Organization Address [facility] Co de Phone Number [facility] [address] [phone] * (ABNORMAL) Glucose, Nova Meter (11/06/2023 4:17 PM EDT) POC-GLUCOSE 156(H) 70 - 110 mg/dL 11/06/2023 4:[address] [facility] Comment: In the event of poor peripheral blood flow, venous or arterial blood should be used due to the potential of erroneous results. Notified Nurse RBV Loom Operator Apprentice [phone] 11/06/2023 4:[address] [facility] Blood WHOLE BLOOD / Unknown 11/06/2023 4:17 PM EDT 11/06/2023 4:[address] [facility] - 11/06/2023 4:19 PM EDT Loom Operator Apprentice ID is - [id number] us Ismaeel Romulo DO POINT OF CARE TEST ORDERABLES Final Result Performing Organization Address [facility] Co de Phone Number [facility] [address] [phone] * (ABNORMAL) Glucose, Nova Meter (11/06/2023 11:03 AM EDT) POC-GLUCOSE 166(H) 70 - 110 mg/dL 11/06/2023 11:[address] [facility] Comment: In the event of poor peripheral blood flow, venous or arterial blood should be used due to the potential of erroneous results. Notified Nurse RBV Loom Operator Apprentice [phone] 11/06/2023 11:[address] [facility] Blood WHOLE BLOOD / Unknown 11/06/2023 11:03 AM EDT 11/06/2023 11:[address] [facility] - 11/06/2023 11:05 AM EDT Loom Operator Apprentice ID is - [id number] us Ismaeel Romulo DO POINT OF CARE TEST ORDERABLES Final Result [facility] [address] [phone] * XR chest AP portable (11/06/2023 8:05 AM EDT) Anatomical Region Laterality Modality Chest X-Ray 11/06/2023 10:2 8 AM EDT Impressions 11/06/2023 10:30 AM EDT Mild improvement in the pulmonary vascular congestion. Images reviewed, interpreted, and dictated by Dr. Enzo Alonso. Transcribed by Kayla Shaffer PA-C. Narrative 11/06/2023 10:30 AM EDT PORTABLE CHEST. ?11/06/2023 8:00 AM HISTORY: Shortness of breath, CHF. COMPARISON: 1 day prior. FINDINGS: The cardiac silhouette demonstrates cardiomegaly. The mediastinum is unremarkable. There is mild improvement in the pulmonary vascular congestion. There is no pulmonary edema. There is no pneumothorax. Procedure Note Enzo Alonso MD - 11/06/2023 PORTABLE CHEST. 11/06/2023 8:00 AM HISTORY: Shortness of breath, CHF. COMPARISON: 1 day prior. FINDINGS: The cardiac silhouette demonstrates cardiomegaly. The mediastinum is unremarkable. There is mild improvement in the pulmonary vascular congestion. There is no pulmonary edema. There is no pneumothorax. IMPRESSION: Mild improvement in the pulmonary vascular congestion. Images reviewed, interpreted, and dictated by Dr. Enzo Alonso. Transcribed by Kayla Shaffer PA-C. us Ismaeel Romulo DO IMG DIAGNOSTIC IMAGING ORDERA BLES Final Result * (ABNORMAL) Glucose, Nova Meter (11/06/2023 7:13 AM EDT) [facility] POC-GLUCOSE 121(H) 70 - 110 mg/dL 11/06/2023 7:[address] [facility] Comment: In the event of poor peripheral blood flow, venous or arterial blood should be used due to the potential of erroneous results. Notified Nurse RBV Loom Operator Apprentice [phone] 11/06/2023 7:[address] [facility] Blood WHOLE BLOOD / Unknown 11/06/2023 7:13 AM EDT 11/06/2023 7:[address] [facility] - 11/06/2023 7:14 AM EDT Loom Operator Apprentice ID is - [id number] us Ismaeel Romulo DO POINT OF CARE TEST ORDERABLES Final Result Performing Organization Address City/[facility]/ZIP Co de Phone Number [facility] [address] [phone] * Magnesium (11/06/2023 4:58 AM EDT) [facility] Magnesium 2.1 1.5 - 2.4 mg/dL 11/06/2023 6:[address] [facility] Blood Venipuncture / Unknown 11/06/2023 4:58 AM EDT 11/06/2023 5:38 AM EDT us Ismaeel Romulo DO LAB BLOOD ORDERABLES Final Re sult [facility] [address] [phone] * (ABNORMAL) Basic Metabolic Panel (11/06/2023 4:58 AM EDT) [facility] Sodium 136 136 - 146 meq/L 11/06/2023 6:[address] [facility] Potassium 4.8 3.5 - 5.1 meq/L 11/06/2023 6:[address] [facility] Chloride 102 102 - 112 meq/L 11/06/2023 6:[address] [facility] CO2 31 21 - 32 meq/L 11/06/2023 6:[address] [facility] Anion Gap 8(L) 9 - 20 11/06/2023 6:[address] [facility] BUN 61(H) 7 - 22 mg/dL 11/06/2023 6:[address] [facility] Creatinine 3.43(H) 0.70 - 1.30 mg/dL 11/06/2023 6:[address] [facility] BUN/Creatinine 18 8 - 20 11/06/2023 6:[address] [facility] Glucose 135(H) 74 - 106 mg/dL 11/06/2023 6:[address] [facility] Calcium 8.9 8.4 - 10.1 mg/dL 11/06/2023 6:[address] [facility] Osmolality Calc 291.2 6:[address] [facility] eGFR (mL/min/1.73m2) 20(L) >=60 mL/min/1.7 3m2 11/06/2023 6:[address] [facility] Comment:eGFR of <60 suggests chronic kidney disease if found over a 3 month period of time. eGFR <15 indicates renal failure. Blood Venipuncture / Unknown 11/06/2023 4:58 AM EDT 11/06/2023 5:38 AM EDT us Ismaeel Romulo DO LAB BLOOD ORDERABLES Final Re sult [facility] [address] [phone] * (ABNORMAL) Manual Differential (11/06/2023 4:57 AM EDT) Total Counted 100 11/06/2023 8:[address] [facility] % Neutros (manual) 62 50 - 65 % 11/06/2023 8:[address] [facility] % Lymphs (manual) 29 24 - 44 % 11/06/2023 8:[address] [facility] % Monos (manual) 6(H) 4 - 5 % 11/06/19 8:[address] [facility] % Eos (manual) 3 0 - 3 % 11/06/2023 8:[address] [facility] RBC Morphology abnormal(A) Normal 8:[address] [facility] Platelet Estimate Adequate Adequate 11/06/2023 8:[address] [facility] Anisocytosis 1+ 11/06/2023 8:[address] [facility] Ovalocytes 1+ 11/06/2023 8:[address] [facility] ANC# 2.23 K/??L 11/06/2023 8:[address] [facility] Blood Venipuncture / Unknown 11/06/2023 4:57 AM EDT 11/06/2023 5:43 AM EDT us Ismaeel Romulo DO LAB BLOOD ORDERABLES Final Re sult [facility] [address] [phone] * (ABNORMAL) CBC with automated diff (11/06/2023 4:57 AM EDT) WBC 3.6(L) 4.2 - 9.1 K/??L 11/06/2023 6:[address] [facility] RBC 4.29(L) 4.63 - 6.08 M/??L 11/06/2023 6:[address] [facility] Hemoglobin 10.5(L) 13.7 - 17.5 GM/DL 11/06/2023 6:[address] [facility] Hematocrit 35.2(L) 40.1 - 51.0 % 11/06/2023 6:[address] [facility] MCV 82 79 - 92 fL 11/06/2023 6:[address] [facility] MCH 24.5(L) 25.7 - 32.2 pg 11/06/2023 6:[address] [facility] MCHC 29.8(L) 32.3 - 36.5 GM/DL 11/06/2023 6:[address] [facility] RDW 16.7(H) 11.6 - 14.4 % 11/06/2023 6:[address] [facility] Platelets 199 140 - 375 K/CU MM 11/06/2023 6:[address] [facility] MPV 11.3 9.4 - 12.4 fL 11/06/2023 6:[address] [facility] NRBC Absolute <0.01 0 - 0.012 K/ul 11/06/2023 6:[address] [facility] Blood Venipuncture / Unknown 11/06/2023 4:57 AM EDT 11/06/2023 5:[address] [facility] - 11/06/2023 6:07 AM EDT When CBC w/ Auto Diff is ordered the lab will add a Manual Differential as a quality check at no additional charge if: Lymphocytes greater than seventy five percent with normal or increased WBC Monocytes greater than Fifteen percent Basophil greater than four percent Bands >10% or several immature myeloids are seen on scan Blast? Flag noted Atypical Lymph flag noted Note: reference ranges were changed on 04/27/2023. us Ismaeel Romulo DO LAB BLOOD ORDERABLES Final Re sult [facility] [address] [phone] * Glucose, Nova Meter (11/05/2023 7:28 PM EDT) POC-GLUCOSE 95 70 - 110 mg/dL 11/05/2023 7:[address] [facility] Comment: In the event of poor peripheral blood flow, venous or arterial blood should be used due to the potential of erroneous results. Notified Nurse RBV Loom Operator Apprentice [phone] 11/05/2023 7:[address] [facility] Blood WHOLE BLOOD / Unknown 11/05/2023 7:28 PM EDT 11/05/2023 7:[address] [facility] - 11/05/2023 7:30 PM EDT Loom Operator Apprentice ID is - [id number] us Ismaeel Romulo DO POINT OF CARE TEST ORDERABLES Final Result Performing Organization Address [facility]/ZIP Co de Phone Number [facility] [address] [phone] * (ABNORMAL) Glucose, Nova Meter (11/05/2023 5:14 PM EDT) POC-GLUCOSE 185(H) 70 - 110 mg/dL 11/05/2023 5:[address] [facility] Comment: In the event of poor peripheral blood flow, venous or arterial blood should be used due to the potential of erroneous results. Notified Nurse RBV Loom Operator Apprentice [phone] 11/05/2023 5:[address] [facility] Blood WHOLE BLOOD / Unknown 11/05/2023 5:14 PM EDT 11/05/2023 5:[address] [facility] - 11/05/2023 5:15 PM EDT Loom Operator Apprentice ID is - [id number] us Ismaeel Romulo DO POINT OF CARE TEST ORDERABLES Final Result Performing Organization Address [facility]/ZIP Co de Phone Number [facility] [address] [phone] * (ABNORMAL) Glucose, Nova Meter (11/05/2023 11:10 AM EDT) POC-GLUCOSE 139(H) 70 - 110 mg/dL 11/05/2023 11:[address] [facility] Comment: In the event of poor peripheral blood flow, venous or arterial blood should be used due to the potential of erroneous results. Notified Nurse RBV Loom Operator Apprentice [phone] 11/05/2023 11:[address] [facility] Blood WHOLE BLOOD / Unknown 11/05/2023 11:10 AM EDT 11/05/2023 11:[address] [facility] - 11/05/2023 11:11 AM EDT Loom Operator Apprentice ID is - [id number] us Ismaeel Romulo DO POINT OF CARE TEST ORDERABLES Final Result [facility] [address] [phone] * XR chest AP portable (11/05/2023 7:45 AM EDT) Anatomical Region Laterality Modality Chest X-Ray 11/05/2023 9:09 AM EDT Impressions 11/05/2023 9:29 AM EDT Worsening interstitial opacities which may be secondary to edema. Images reviewed, interpreted, and dictated by Dr. Stephon Cedillo. Transcribed by Isma Brian PA-C Narrative 11/05/2023 9:29 AM EDT PORTABLE CHEST ?11/05/2023 7:40 AM HISTORY: Acute shortness of breath. COMPARISON: November 04, 2023. FINDINGS: The heart is mildly to moderately enlarged. ??The mediastinum is unremarkable . Mild interstitial opacities appear increased compared to prior. ??There is no pneumothorax . Procedure Note Stephon Cedillo MD - 11/05/2023 PORTABLE CHEST 11/05/2023 7:40 AM HISTORY: Acute shortness of breath. COMPARISON: November 04, 2023. FINDINGS: The heart is mildly to moderately enlarged. The mediastinum is unremarkable . Mild interstitial opacities appear increased compared to prior. There is no pneumothorax . IMPRESSION: Worsening interstitial opacities which may be secondary to edema. Images reviewed, interpreted, and dictated by Dr. Stephon Cedillo. Transcribed by Isma Brian PA-C us Ismaeel Romulo DO IMG DIAGNOSTIC IMAGING ORDERA BLES Final Result * Glucose, Nova Meter (11/05/2023 7:30 AM EDT) POC-GLUCOSE 98 70 - 110 mg/dL 11/05/2023 7:[address] [facility] Comment: In the event of poor peripheral blood flow, venous or arterial blood should be used due to the potential of erroneous results. Notified Nurse RBV Loom Operator Apprentice [phone] 11/05/2023 7:[address] [facility] Blood WHOLE BLOOD / Unknown 11/05/2023 7:30 AM EDT 11/05/2023 7:[address] [facility] - 11/05/2023 7:32 AM EDT Loom Operator Apprentice ID is - [id number] us Ismaeel Romulo DO POINT OF CARE TEST ORDERABLES Final Result [facility] [address] [phone] * (ABNORMAL) Manual Differential (11/05/2023 3:27 AM EDT) Pathologist [facility] Total Counted 100 11/05/2023 6:[address] [facility] % Neutros (manual) 60 50 - 65 % 11/05/2023 6:[address] [facility] % Lymphs (manual) 32 24 - 44 % 11/05/2023 6:[address] [facility] % Monos (manual) 3(L) 4 - 5 % 11/05/2023 6:[address] [facility] % Eos (manual) 5(H) 0 - 3 % 11/05/2023 6:[address] [facility] Reactive Lymphocytes Present 11/05/2023 6:[address] [facility] Comment:Occasional RBC Morphology Normal Normal 11/05/2023 6:[address] [facility] Platelet Estimate Adequate Adequate 11/05/2023 6:[address] [facility] Hypochromia 1+ 11/05/2023 6:[address] [facility] ANC# 2.28 K/??L 11/05/2023 6:[address] [facility] Blood Venipuncture / Unknown 11/05/2023 3:27 AM EDT 11/05/2023 3:41 AM EDT us Ismaeel Romulo DO LAB BLOOD ORDERABLES Final Re sult Performing Organization Address [facility]/ZIP Co de Phone Number [facility] [address] [phone] * Magnesium (11/05/2023 3:27 AM EDT) Magnesium 2.2 1.5 - 2.4 mg/dL 11/05/2023 4:[address] [facility] Blood Venipuncture / Unknown 11/05/2023 3:27 AM EDT 11/05/2023 3:42 AM EDT us Iskseel Romulo DO LAB BLOOD ORDERABLES Final Re sult Performing Organization Address [facility] Co de Phone Number [facility] [address] [phone] * (ABNORMAL) CBC with automated diff (11/05/2023 3:27 AM EDT) WBC 3.8(L) 4.2 - 9.1 K/??L 11/05/2023 6:[address] [facility] RBC 4.28(L) 4.63 - 6.08 M/??L 11/05/2023 6:[address] [facility] Hemoglobin 10.4(L) 13.7 - 17.5 GM/DL 11/05/2023 6:[address] [facility] [facility] Hematocrit 34.8(L) 40.1 - 51.0 % 11/05/2023 6:[address] [facility] MCV 81 79 - 92 fL 11/05/2023 6:[address] [facility] MCH 24.3(L) 25.7 - 32.2 pg 11/05/2023 6:[address] [facility] MCHC 29.9(L) 32.3 - 36.5 GM/DL 11/05/2023 6:[address] [facility] RDW 16.7(H) 11.6 - 14.4 % 11/05/2023 6:[address] [facility] Platelets 194 140 - 375 K/CU MM 11/05/2023 6:[address] [facility] MPV 11.4 9.4 - 12.4 fL 11/05/2023 6:[address] [facility] NRBC Absolute <0.01 0 - 0.012 K/ul 11/05/2023 6:[address] [facility] Blood Venipuncture / Unknown 11/05/2023 3:27 AM EDT 11/05/2023 3:[address] [facility] - 11/05/2023 6:42 AM EDT When CBC w/ Auto Diff is ordered the lab will add a Manual Differential as a quality check at no additional charge if: Lymphocytes greater than seventy five percent with normal or increased WBC Monocytes greater than Fifteen percent Basophil greater than four percent Bands >10% or several immature myeloids are seen on scan Blast? Flag noted Atypical Lymph flag noted Note: reference ranges were changed on 04/27/2023. us Ismaeel Romulo DO LAB BLOOD ORDERABLES Final Re sult [facility] [address] [phone] * (ABNORMAL) Basic Metabolic Panel (11/05/2023 3:27 AM EDT) Sodium 138 136 - 146 meq/L 11/05/2023 4:[address] [facility] Potassium 4.3 3.5 - 5.1 meq/L 11/05/2023 4:[address] [facility] Chloride 102 102 - 112 meq/L 11/05/2023 4:[address] [facility] CO2 32 21 - 32 meq/L 11/05/2023 4:[address] [facility] Anion Gap 8(L) 9 - 20 11/05/2023 4:[address] [facility] BUN 58(H) 7 - 22 mg/dL 11/05/2023 4:[address] [facility] Creatinine 3.25(H) 0.70 - 1.30 mg/dL 11/05/2023 4:[address] [facility] BUN/Creatinine 18 8 - 20 11/05/2023 4:[address] [facility] Glucose 103 74 - 106 mg/dL 11/05/2023 4:[address] [facility] Calcium 9.0 8.4 - 10.1 mg/dL 11/05/2023 4:[address] [facility] Osmolality Calc 292.1 4:[address] [facility] eGFR (mL/min/1.73m2) 21(L) >=60 mL/min/1.7 3m2 11/05/2023 4:[address] [facility] Comment:eGFR of <60 suggests chronic kidney disease if found over a 3 month period of time. eGFR <15 indicates renal failure. Blood Venipuncture / Unknown 11/05/2023 3:27 AM EDT 11/05/2023 3:42 AM EDT us Ismaeel Romulo DO LAB BLOOD ORDERABLES Final Re sult [facility] [address] [phone] * (ABNORMAL) Glucose, Nova Meter (11/04/2023 8:25 PM EDT) POC-GLUCOSE 159(H) 70 - 110 mg/dL 11/04/2023 8:[address] [facility] Comment: In the event of poor peripheral blood flow, venous or arterial blood should be used due to the potential of erroneous results. Notified Nurse RBV Loom Operator Apprentice [phone] 11/04/2023 8:[address] [facility] Blood WHOLE BLOOD / Unknown 11/04/2023 8:25 PM EDT 11/04/2023 8:[address] [facility] - 11/04/2023 8:26 PM EDT Loom Operator Apprentice ID is - [id number] us Ismaeel Romulo DO POINT OF CARE TEST ORDERABLES Final Result Performing Organization Address City/[facility]/ZIP Co de Phone Number [facility] [address] [phone] * (ABNORMAL) Glucose, Nova Meter (11/04/2023 4:19 PM EDT) POC-GLUCOSE 119(H) 70 - 110 mg/dL 11/05/2023 8:[address] [facility] Comment:In the event of poor peripheral blood flow, venous or arterial blood should be used due to the potential of erroneous results. Loom Operator Apprentice [phone] 11/05/2023 8:[address] [facility] Blood WHOLE BLOOD / Unknown 11/04/2023 4:19 PM EDT 11/05/2023 8:[address] [facility] - 11/05/2023 8:46 AM EDT Loom Operator Apprentice ID is - [id number] us Ismaeel Romulo DO POINT OF CARE TEST ORDERABLES Final Result Performing Organization Address City/[facility]/ZIP Co de Phone Number [facility] [address] [phone] * Magnesium (11/04/2023 2:48 PM EDT) Magnesium 2.2 1.5 - 2.4 mg/dL 11/04/2023 3:[address] [facility] Blood Venipuncture / Unknown 11/04/2023 2:48 PM EDT 11/04/2023 2:56 PM EDT us Ismaeel Romulo DO LAB BLOOD ORDERABLES Final Re sult [facility] [address] [place] [address], [facility] [phone] * (ABNORMAL) CBC with automated diff (11/04/2023 2:48 PM EDT) WBC 4.0(L) 4.2 - 9.1 K/??L 11/04/2023 2:[address] [facility] RBC 4.26(L) 4.63 - 6.08 M/??L 11/04/2023 2:[address] [facility] Hemoglobin 10.5(L) 13.7 - 17.5 GM/DL 11/04/2023 2:[address] [facility] Hematocrit 34.8(L) 40.1 - 51.0 % 11/04/2023 2:[address] [facility] MCV 82 79 - 92 fL 11/04/2023 2:[address] [facility] MCH 24.6(L) 25.7 - 32.2 pg 11/04/2023 2:[address] [facility] MCHC 30.2(L) 32.3 - 36.5 GM/DL 11/04/2023 2:[address] [facility] RDW 16.6(H) 11.6 - 14.4 % 11/04/2023 2:[address] [facility] Platelets 196 140 - 375 K/CU MM 11/04/2023 2:[address] [facility] MPV 10.8 9.4 - 12.4 fL 11/04/2023 2:[address] [facility] % Neutros 62 34 - 68 % 11/04/2023 2:[address] [facility] % Lymphs 26 22 - 53 % 11/04/2023 2:[address] [facility] % Monos 9 5 - 12 % 11/04/2023 2:[address] [facility] % Eos 3 1 - 7 % 11/04/2023 2:[address] [facility] % Baso 1 0 - 1 % 11/04/2023 2:[address] [facility] NRBC Absolute <0.01 0 - 0.012 K/ul 11/04/2023 2:[address] [facility] # Neutros 2.50 1.78 - 5.38 K/??L 11/04/2023 2:[address] [facility] # Lymphs 1.03(L) 1.32 - 3.57 K/??L 11/04/2023 2:[address] [facility] # Monos 0.37 0.30 - 0.82 K/??L 11/04/2023 2:[address] [facility] # Eos 0.10 0.04 - 0.54 K/??L 11/04/2023 2:[address] [facility] # Baso <0.03 0.01 - 0.08 K/??L 11/04/2023 2:[address] [facility] Immature Granulocytes-Re lative 0.20 0.01 - 0.43 % 11/04/2023 2:[address] [facility] # IG <0.03 0.00 - 0.03 K/uL 11/04/2023 2:[address] [facility] Blood Venipuncture / Unknown 11/04/2023 2:48 PM EDT 11/04/2023 2:[address] [facility] - 11/04/2023 2:59 PM EDT When CBC w/ Auto Diff is ordered the lab will add a Manual Differential as a quality check at no additional charge if: Lymphocytes greater than seventy five percent with normal or increased WBC Monocytes greater than Fifteen percent Basophil greater than four percent Bands >10% or several immature myeloids are seen on scan Blast? Flag noted Atypical Lymph flag noted Note: reference ranges were changed on 04/27/2023. us Ismaeel Romulo DO LAB BLOOD ORDERABLES Final Re sult [facility] [address] [phone] * (ABNORMAL) Basic Metabolic Panel (11/04/2023 2:48 PM EDT) Sodium 137 136 - 146 meq/L 11/04/2023 3:[address] [facility] Potassium 4.8 3.5 - 5.1 meq/L 11/04/2023 3:[address] [facility] Chloride 100(L) 102 - 112 meq/L 11/04/2023 3:[address] [facility] CO2 33(H) 21 - 32 meq/L 11/04/2023 3:[address] [facility] Anion Gap 9 9 - 20 11/04/2023 3:[address] [facility] BUN 56(H) 7 - 22 mg/dL 11/04/2023 3:[address] [facility] Creatinine 3.46(H) 0.70 - 1.30 mg/dL 11/04/2023 3:[address] [facility] BUN/Creatinine 16 8 - 20 11/04/2023 3:[address] [facility] Glucose 108(H) 74 - 106 mg/dL 11/04/2023 3:[address] [facility] Calcium 9.1 8.4 - 10.1 mg/dL 11/04/2023 3:[address] [facility] Osmolality Calc 289.8 3:[address] [facility] eGFR (mL/min/1.73m2) 20(L) >=60 mL/min/1.7 3m2 11/04/2023 3:[address] [facility] Comment:eGFR of <60 suggests chronic kidney disease if found over a 3 month period of time. eGFR <15 indicates renal failure. Blood Venipuncture / Unknown 11/04/2023 2:48 PM EDT 11/04/2023 2:56 PM EDT us Ismaeel Romulo DO LAB BLOOD ORDERABLES Final Re sult [facility] [address] [phone] * (ABNORMAL) Glucose, Nova Meter (11/04/2023 10:47 AM EDT) POC-GLUCOSE 200(H) 70 - 110 mg/dL 11/04/2023 11:[address] [facility] Comment: In the event of poor peripheral blood flow, venous or arterial blood should be used due to the potential of erroneous results. Notified Nurse RBV Loom Operator Apprentice [phone] 11/04/2023 11:[address] [facility] Blood WHOLE BLOOD / Unknown 11/04/2023 10:47 AM EDT 11/04/2023 11:[address] [facility] - 11/04/2023 11:00 AM EDT Loom Operator Apprentice ID is - [id number] us Ismaeel Romulo DO POINT OF CARE TEST ORDERABLES Final Result Performing Organization Address [facility] de Phone Number [facility] [address] [phone] * (ABNORMAL) Glucose, Nova Meter (11/04/2023 8:40 AM EDT) POC-GLUCOSE 130(H) 70 - 110 mg/dL 11/04/2023 8:[address] [facility] Comment: In the event of poor peripheral blood flow, venous or arterial blood should be used due to the potential of erroneous results. Notified Nurse RBV Loom Operator Apprentice [phone] 11/04/2023 8:[address] [facility] Blood WHOLE BLOOD / Unknown 11/04/2023 8:40 AM EDT 11/04/2023 8:[address] [facility] - 11/04/2023 8:41 AM EDT Loom Operator Apprentice ID is - [id number] us Ismaeel Romulo DO POINT OF CARE TEST ORDERABLES Final Result Performing Organization Address [facility] Co de Phone Number [facility] [address] [phone] * XR chest AP portable (11/04/2023 8:05 AM EDT) Anatomical Region Laterality Modality Chest X-Ray 11/04/2023 9:18 AM EDT Impressions 11/04/2023 3:32 PM EDT Improving aeration. Images reviewed, interpreted, and dictated by Dr. Frandy Stauffer. Transcribed by Brad Hernandez PA-C. Narrative 11/04/2023 3:32 PM EDT PORTABLE CHEST HISTORY: Hypoxia. COMPARISON: One day prior. FINDINGS: The heart is normal in size. There is mildly improved aeration with decrease in left lung atelectasis. The lungs are clear. There is no pneumothorax. Procedure Note Frandy Stauffer MD - 11/04/2023 PORTABLE CHEST HISTORY: Hypoxia. COMPARISON: One day prior. FINDINGS: The heart is normal in size. There is mildly improved aeration with decrease in left lung atelectasis. The lungs are clear. There is no pneumothorax. IMPRESSION: Improving aeration. Images reviewed, interpreted, and dictated by Dr. Frandy Stauffer. Transcribed by Brad Hernandez PA-C. Bing Sebastian DO IMG DIAGNOSTIC IMAGING ORDERA BLES Final Result * Magnesium (11/04/2023 4:55 AM EDT) [facility] Magnesium 2.3 1.5 - 2.4 mg/dL 11/04/2023 6:[address] [facility] Blood Venipuncture / Unknown 11/04/2023 4:55 AM EDT 11/04/2023 5:45 AM EDT Gurinder Samayoa APRN LAB BLOOD ORDERABLES Final Result [facility] [address] [place] [address], [facility] [phone] * (ABNORMAL) Glucose, Nova Meter (11/03/2023 8:34 PM EDT) [facility] POC-GLUCOSE 127(H) 70 - 110 mg/dL 11/03/2023 8:[address] [facility] Comment: In the event of poor peripheral blood flow, venous or arterial blood should be used due to the potential of erroneous results. Notified Nurse RBV Loom Operator Apprentice [phone] 11/03/2023 8:[address] [facility] Blood WHOLE BLOOD / Unknown 11/03/2023 8:34 PM EDT 11/03/2023 8:[address] [facility] - 11/03/2023 8:35 PM EDT Loom Operator Apprentice ID is - [id number] Ismaeel Romulo DO POINT OF CARE TEST ORDERABLES Final Result Performing Organization Address [facility] de Phone Number [facility] [address] [phone] * (ABNORMAL) Glucose, Nova Meter (11/03/2023 4:53 PM EDT) POC-GLUCOSE 186(H) 70 - 110 mg/dL 11/03/2023 4:[address] [facility] Comment: In the event of poor peripheral blood flow, venous or arterial blood should be used due to the potential of erroneous results. Notified Nurse RBV Loom Operator Apprentice [phone] 11/03/2023 4:[address] [facility] Blood WHOLE BLOOD / Unknown 11/03/2023 4:53 PM EDT 11/03/2023 4:[address] [facility] - 11/03/2023 4:55 PM EDT Loom Operator Apprentice ID is - [id number] [facility] DO POINT OF CARE TEST ORDERABLES Final Result Performing Organization Address City/[facility] Co de Phone Number [facility] [address] [phone] * (ABNORMAL) Glucose, Nova Meter (11/03/2023 11:23 AM EDT) POC-GLUCOSE 153(H) 70 - 110 mg/dL 11/03/2023 11:[address] [facility] Comment: In the event of poor peripheral blood flow, venous or arterial blood should be used due to the potential of erroneous results. Notified Nurse RBV Loom Operator Apprentice [phone] 11/03/2023 11:[address] [facility] Blood WHOLE BLOOD / Unknown 11/03/2023 11:23 AM EDT 11/03/2023 11:[address] [facility] - 11/03/2023 11:25 AM EDT Loom Operator Apprentice ID is - [id number] us Ismaeel Romulo DO POINT OF CARE TEST ORDERABLES Final Result [facility] [address] [phone] * XR chest AP portable (11/03/2023 9:53 AM EDT) Anatomical Region Laterality Modality Chest X-Ray 11/03/2023 11:0 5 AM EDT Impressions 11/03/2023 11:06 AM EDT Vascular congestion and interstitial opacity likely related to mild edema. Images reviewed, interpreted, and dictated by Dr. Stephon Cedillo. Transcribed by Brad Hernandez PA-C. Narrative 11/03/2023 11:06 AM EDT PORTABLE CHEST HISTORY: Hypoxia. COMPARISON: One day prior. FINDINGS: The heart is upper limits of normal in size. There is mild vascular congestion and interstitial opacity. Findings likely secondary to mild edema. There is no pneumothorax. Procedure Note Stephon Cedillo MD - 11/03/2023 PORTABLE CHEST HISTORY: Hypoxia. COMPARISON: One day prior. FINDINGS: The heart is upper limits of normal in size. There is mild vascular congestion and interstitial opacity. Findings likely secondary to mild edema. There is no pneumothorax. IMPRESSION: Vascular congestion and interstitial opacity likely related to mild edema. Images reviewed, interpreted, and dictated by Dr. Stephon Cedillo. Transcribed by Brad Hernandez PA-C. us Ismaeel Romulo DO IMG DIAGNOSTIC IMAGING ORDERA BLES Final Result * Glucose, Nova Meter (11/03/2023 8:10 AM EDT) POC-GLUCOSE 110 70 - 110 mg/dL 11/03/2023 8:[address] [facility] Comment: In the event of poor peripheral blood flow, venous or arterial blood should be used due to the potential of erroneous results. Notified Nurse RBV Loom Operator Apprentice [phone] 11/03/2023 8:[address] [facility] Blood WHOLE BLOOD / Unknown 11/03/2023 8:10 AM EDT 11/03/2023 8:[address] [facility] - 11/03/2023 8:11 AM EDT Loom Operator Apprentice ID is - [id number] us Ismaeel Romulo DO POINT OF CARE TEST ORDERABLES Final Result Performing Organization Address City/State/[facility] Co de Phone Number [facility] [address] [phone] * (ABNORMAL) Basic Metabolic Panel (11/03/2023 5:38 AM EDT) Pathologist [facility] Sodium 137 136 - 146 meq/L 11/03/2023 9:[address] [facility] Potassium 4.1 3.5 - 5.1 meq/L 11/03/2023 9:[address] [facility] Chloride 99(L) 102 - 112 meq/L 11/03/2023 9:[address] [facility] CO2 32 21 - 32 meq/L 11/03/2023 9:[address] [facility] Anion Gap 10 9 - 20 11/03/2023 9:[address] [facility] BUN 57(H) 7 - 22 mg/dL 11/03/2023 9:[address] [facility] Creatinine 3.60(H) 0.70 - 1.30 mg/dL 11/03/2023 9:[address] [facility] BUN/Creatinine 16 8 - 20 11/03/2023 9:[address] [facility] Glucose 119(H) 74 - 106 mg/dL 11/03/2023 9:[address] [facility] Calcium 8.9 8.4 - 10.1 mg/dL 11/03/2023 9:[address] [facility] Osmolality Calc 290.8 9:[address] [facility] eGFR (mL/min/1.73m2) 19(L) >=60 mL/min/1.7 3m2 11/03/2023 9:[address] [facility] Comment:eGFR of <60 suggests chronic kidney disease if found over a 3 month period of time. eGFR <15 indicates renal failure. Blood Venipuncture / Unknown 11/03/2023 5:38 AM EDT 11/03/2023 5:52 AM EDT Bing Sebastian DO LAB BLOOD ORDERABLES Final Re sult [facility] [address] [phone] * Magnesium (11/03/2023 5:38 AM EDT) Pathologist [facility] Magnesium 2.3 1.5 - 2.4 mg/dL 11/03/2023 6:[address] [facility] Blood Venipuncture / Unknown 11/03/2023 5:38 AM EDT 11/03/2023 5:52 AM EDT us Gurinder Samayoa APRN LAB BLOOD ORDERABLES Final Result [facility] [address] [phone] * (ABNORMAL) Glucose, Nova Meter (11/02/2023 4:40 PM EDT) POC-GLUCOSE 181(H) 70 - 110 mg/dL 11/02/2023 4:[address] [facility] Comment: In the event of poor peripheral blood flow, venous or arterial blood should be used due to the potential of erroneous results. Notified Nurse RBV Loom Operator Apprentice [phone] 11/02/2023 4:[address] [facility] Blood WHOLE BLOOD / Unknown 11/02/2023 4:40 PM EDT 11/02/2023 4:[address] [facility] - 11/02/2023 4:41 PM EDT Loom Operator Apprentice ID is - [id number] us Ismaeel Romulo DO POINT OF CARE TEST ORDERABLES Final Result [facility] [address] [phone] * (ABNORMAL) Glucose, Nova Meter (11/02/2023 12:14 PM EDT) POC-GLUCOSE 155(H) 70 - 110 mg/dL 11/02/2023 12:[address] [facility] Comment: In the event of poor peripheral blood flow, venous or arterial blood should be used due to the potential of erroneous results. Notified Nurse RBV Loom Operator Apprentice [phone] 11/02/2023 12:[address] [facility] Blood WHOLE BLOOD / Unknown 11/02/2023 12:14 PM EDT 11/02/2023 12:[address] [facility] - 11/02/2023 12:15 PM EDT Loom Operator Apprentice ID is - [phone] us Ismaeel Romulo DO POINT OF CARE TEST ORDERABLES Final Result [facility] [address] [phone] * XR chest AP portable (11/02/2023 10:42 AM EDT) Anatomical Region Laterality Modality Chest X-Ray 11/02/2023 11:1 0 AM EDT Impressions 11/02/2023 11:56 AM EDT Mild cardiomegaly with pulmonary vascular congestion. Images reviewed, interpreted, and dictated by Dr. Stephon Cedillo. Transcribed by Lia Hawk PA-C. Narrative 11/02/2023 11:56 AM EDT PORTABLE CHEST; ?? HISTORY: Shortness of air. COMPARISON: October 30, 2023. FINDINGS: The heart is mildly enlarged. ??The mediastinum is unremarkable. There is pulmonary vascular congestion. There is no evidence of acute infiltrate or effusion. There is no pneumothorax. ?? Procedure Note Stephon Cedillo MD - 11/02/2023 PORTABLE CHEST; HISTORY: Shortness of air. COMPARISON: October 30, 2023. FINDINGS: The heart is mildly enlarged. The mediastinum is unremarkable. There is pulmonary vascular congestion. There is no evidence of acute infiltrate or effusion. There is no pneumothorax. IMPRESSION: Mild cardiomegaly with pulmonary vascular congestion. Images reviewed, interpreted, and dictated by Dr. Stephon Cedillo. Transcribed by Lia Hawk PA-C. us Ismaeel Romulo DO IMG DIAGNOSTIC IMAGING ORDERA BLES Final Result * (ABNORMAL) Glucose, Nova Meter (11/02/2023 7:38 AM EDT) POC-GLUCOSE 143(H) 70 - 110 mg/dL 11/02/2023 7:[address] [facility] Comment: In the event of poor peripheral blood flow, venous or arterial blood should be used due to the potential of erroneous results. Notified Nurse RBV Loom Operator Apprentice [phone] 11/02/2023 7:[address] [facility] Blood WHOLE BLOOD / Unknown 11/02/2023 7:38 AM EDT 11/02/2023 7:[address] [facility] - 11/02/2023 7:39 AM EDT Loom Operator Apprentice ID is - [phone] us Ismaeel Romulo DO POINT OF CARE TEST ORDERABLES Final Result [facility] [address] [phone] * Magnesium (11/02/2023 4:30 AM EDT) Magnesium 2.0 1.5 - 2.4 mg/dL 11/02/2023 5:[address] [facility] Blood Venipuncture / Unknown 11/02/2023 4:30 AM EDT 11/02/2023 5:29 AM EDT us Gurinder Samayoa LEGAL COMPLIANCE OFFICER LAB BLOOD ORDERABLES Final Result [facility] [address] [phone] * (ABNORMAL) Basic Metabolic Panel (11/02/2023 4:30 AM EDT) Pathologist [facility] Sodium 136 136 - 146 meq/L 11/02/2023 5:[address] [facility] Potassium 4.3 3.5 - 5.1 meq/L 11/02/2023 5:[address] [facility] Chloride 97(L) 102 - 112 meq/L 11/02/2023 5:[address] [facility] CO2 33(H) 21 - 32 meq/L 11/02/2023 5:[address] [facility] Anion Gap 10 9 - 20 11/02/2023 5:[address] [facility] BUN 56(H) 7 - 22 mg/dL 11/02/2023 5:[address] [facility] Creatinine 3.89(H) 0.70 - 1.30 mg/dL 11/02/2023 5:[address] [facility] BUN/Creatinine 14 8 - 20 11/02/2023 5:[address] [facility] Glucose 161(H) 74 - 106 mg/dL 11/02/2023 5:[address] [facility] Calcium 8.9 8.4 - 10.1 mg/dL 11/02/2023 5:[address] [facility] Osmolality Calc 290.9 5:[address] [facility] eGFR (mL/min/1.73m2) 17(L) >=60 mL/min/1.7 3m2 11/02/2023 5:52 AM EDT [facility] Comment:eGFR of <60 suggests chronic kidney disease if found over a 3 month period of time. eGFR <15 indicates renal failure. Blood Venipuncture / Unknown 11/02/2023 4:30 AM EDT 11/02/2023 5:29 AM EDT us Gurinder Samayoa LEGAL COMPLIANCE OFFICER LAB BLOOD ORDERABLES Final Result [facility] [address] [place] [address], [facility] [phone] * (ABNORMAL) Glucose, Nova Meter (11/01/2023 7:28 PM EDT) POC-GLUCOSE 137(H) 70 - 110 mg/dL 11/01/2023 7:[address] [facility] Comment: In the event of poor peripheral blood flow, venous or arterial blood should be used due to the potential of erroneous results. Notified Nurse RBV Loom Operator Apprentice [phone] 11/01/2023 7:[address] [facility] Blood WHOLE BLOOD / Unknown 11/01/2023 7:28 PM EDT 11/01/2023 7:[address] [facility] - 11/01/2023 7:30 PM EDT Loom Operator Apprentice ID is - [id number] us Nohelia Deutsch DO POINT OF CARE TEST ORDERABLE S Final Result [facility] [address] [place] [address], [facility] [phone] * (ABNORMAL) Glucose, Nova Meter (11/01/2023 3:59 PM EDT) POC-GLUCOSE 155(H) 70 - 110 mg/dL 11/01/2023 4:[address] [facility] Comment: In the event of poor peripheral blood flow, venous or arterial blood should be used due to the potential of erroneous results. Notified Nurse RBV Loom Operator Apprentice [phone] 11/01/2023 4:[address] [facility] Blood WHOLE BLOOD / Unknown 11/01/2023 3:59 PM EDT 11/01/2023 4:[address] [facility] - 11/01/2023 4:00 PM EDT Loom Operator Apprentice ID is - [id number] Nohelia PalWhite Skya DO POINT OF CARE TEST ORDERABLE S Final Result Performing Organization Address City/State/[facility] Co de Phone Number [facility] [address] [phone] * (ABNORMAL) Glucose, Nova Meter (11/01/2023 11:49 AM EDT) POC-GLUCOSE 147(H) 70 - 110 mg/dL 11/01/2023 11:[address] [facility] Comment: In the event of poor peripheral blood flow, venous or arterial blood should be used due to the potential of erroneous results. Notified Nurse RBV Loom Operator Apprentice [phone] 11/01/2023 11:[address] [facility] Blood WHOLE BLOOD / Unknown 11/01/2023 11:49 AM EDT 11/01/2023 11:[address] [facility] - 11/01/2023 11:50 AM EDT Loom Operator Apprentice ID is - [id number] Nohelia PalWhite Skya DO POINT OF CARE TEST ORDERABLE S Final Result [facility] [address] [place] [address], [facility] [phone] * (ABNORMAL) Glucose, Nova Meter (11/01/2023 7:44 AM EDT) POC-GLUCOSE 112(H) 70 - 110 mg/dL 11/01/2023 7:[address] [facility] Comment: In the event of poor peripheral blood flow, venous or arterial blood should be used due to the potential of erroneous results. Notified Nurse RBV Loom Operator Apprentice [id number] 11/01/2023 7:[address] [facility] Blood WHOLE BLOOD / Unknown 11/01/2023 7:44 AM EDT 11/01/2023 7:[address] [facility] - 11/01/2023 7:46 AM EDT Loom Operator Apprentice ID is - [id number] us Nohelia Deutsch DO POINT OF CARE TEST ORDERABLE S Final Result [facility] [address] [phone] * (ABNORMAL) CBC - Hemogram (SJ-BKR) (11/01/2023 5:29 AM EDT) WBC 4.1(L) 4.2 - 9.1 K/??L 11/01/2023 6:[address] [facility] RBC 4.22(L) 4.63 - 6.08 M/??L 11/01/2023 6:[address] [facility] Hemoglobin 10.3(L) 13.7 - 17.5 GM/DL 11/01/2023 6:[address] [facility] Hematocrit 34.0(L) 40.1 - 51.0 % 11/01/2023 6:[address] [facility] MCV 81 79 - 92 fL 11/01/2023 6:[address] [facility] MCH 24.4(L) 25.7 - 32.2 pg 11/01/2023 6:[address] [facility] MCHC 30.3(L) 32.3 - 36.5 GM/DL 11/01/2023 6:[address] [facility] RDW 16.6(H) 11.6 - 14.4 % 11/01/2023 6:[address] [facility] Platelets 200 140 - 375 K/CU MM 11/01/2023 6:[address] [facility] MPV 11.1 9.4 - 12.4 fL 11/01/2023 6:[address] [facility] Blood Venipuncture / Unknown 11/01/2023 5:29 AM EDT 11/01/2023 5:[address] [facility] - 11/01/2023 6:02 AM EDT Note: reference ranges were changed on 04/27/2023. us Nohelia Deutsch DO LAB BLOOD ORDERABLES Final R esult [facility] [address] [phone] * (ABNORMAL) Basic Metabolic Panel (11/01/2023 5:29 AM EDT) Sodium 138 136 - 146 meq/L 11/01/2023 6:[address] [facility] Potassium 4.4 3.5 - 5.1 meq/L 11/01/2023 6:[address] [facility] Chloride 100(L) 102 - 112 meq/L 11/01/2023 6:[address] [facility] CO2 31 21 - 32 meq/L 11/01/2023 6:[address] [facility] Anion Gap 11 9 - 20 11/01/2023 6:[address] [facility] BUN 52(H) 7 - 22 mg/dL 11/01/2023 6:[address] [facility] Creatinine 3.54(H) 0.70 - 1.30 mg/dL 11/01/2023 6:[address] [facility] BUN/Creatinine 15 8 - 20 11/01/2023 6:[address] [facility] Glucose 118(H) 74 - 106 mg/dL 11/01/2023 6:[address] [facility] Calcium 8.8 8.4 - 10.1 mg/dL 11/01/2023 6:[address] [facility] Osmolality Calc 290.8 6:[address] [facility] eGFR (mL/min/1.73m2) 19(L) >=60 mL/min/1.7 3m2 11/01/2023 6:[address] [facility] Comment:eGFR of <60 suggests chronic kidney disease if found over a 3 month period of time. eGFR <15 indicates renal failure. Blood Venipuncture / Unknown 11/01/2023 5:29 AM EDT 11/01/2023 5:52 AM EDT Gurinder Samayoa APRN LAB BLOOD ORDERABLES Final Result Performing Organization Address [facility]/ZIP Co de Phone Number [facility] [address] [phone] * Magnesium (11/01/2023 5:29 AM EDT) Pathologist [facility] Magnesium 2.2 1.5 - 2.4 mg/dL 11/01/2023 6:[address] [facility] Blood Venipuncture / Unknown 11/01/2023 5:29 AM EDT 11/01/2023 5:52 AM EDT Gurinder Samayoa APRN LAB BLOOD ORDERABLES Final Result Performing Organization Address [facility] Co de Phone Number [facility] [address] [phone] * (ABNORMAL) Glucose, Nova Meter (10/31/2023 7:47 PM EDT) POC-GLUCOSE 149(H) 70 - 110 mg/dL 10/31/2023 7:[address] [facility] Comment: In the event of poor peripheral blood flow, venous or arterial blood should be used due to the potential of erroneous results. Protocols Followed Loom Operator Apprentice [phone] 10/31/2023 7:[address] [facility] Blood WHOLE BLOOD / Unknown 10/31/2023 7:47 PM EDT 10/31/2023 7:[address] [facility] - 10/31/2023 7:48 PM EDT Loom Operator Apprentice ID is - [id number] Nohelia Hernandeza DO POINT OF CARE TEST ORDERABLE S Final Result Performing Organization Address [facility] Co de Phone Number [facility] [address] [place] [address], [facility] [phone] * (ABNORMAL) Glucose, Nova Meter (10/31/2023 4:37 PM EDT) POC-GLUCOSE 176(H) 70 - 110 mg/dL 10/31/2023 4:[address] [facility] Comment: In the event of poor peripheral blood flow, venous or arterial blood should be used due to the potential of erroneous results. Notified Nurse RBV Loom Operator Apprentice [phone] 10/31/2023 4:[address] [facility] Blood WHOLE BLOOD / Unknown 10/31/2023 4:37 PM EDT 10/31/2023 4:[address] [facility] - 10/31/2023 4:38 PM EDT Loom Operator Apprentice ID is - [id number] [facility] POINT OF CARE TEST ORDERABLE S Final Result Performing Organization Address [facility] Co de Phone Number [facility] [address] [place] [address], [facility] [phone] * (ABNORMAL) Glucose, Nova Meter (10/31/2023 12:13 PM EDT) POC-GLUCOSE 207(H) 70 - 110 mg/dL 10/31/2023 12:[address] [facility] Comment: In the event of poor peripheral blood flow, venous or arterial blood should be used due to the potential of erroneous results. Notified Nurse RBV Loom Operator Apprentice [phone] 10/31/2023 12:[address] [facility] Blood WHOLE BLOOD / Unknown 10/31/2023 12:13 PM EDT 10/31/2023 12:[address] [facility] - 10/31/2023 12:14 PM EDT Loom Operator Apprentice ID is - [id number] Nohelia Georgessuzanne DO POINT OF CARE TEST ORDERABLE S Final Result Performing Organization Address [facility] Co de Phone Number [facility] [address] [place] [address], [facility] [phone] * (ABNORMAL) Glucose, Nova Meter (10/31/2023 7:53 AM EDT) POC-GLUCOSE 131(H) 70 - 110 mg/dL 10/31/2023 7:[address] [facility] Comment: In the event of poor peripheral blood flow, venous or arterial blood should be used due to the potential of erroneous results. Notified Nurse RBV Loom Operator Apprentice [phone] 10/31/2023 7:[address] [facility] Blood WHOLE BLOOD / Unknown 10/31/2023 7:53 AM EDT 10/31/2023 7:[address] [facility] - 10/31/2023 7:55 AM EDT Loom Operator Apprentice ID is - [id number] Nohelia Deutsch DO POINT OF CARE TEST ORDERABLE S Final Result Performing Organization Address [facility] Co de Phone Number [facility] [address] [phone] * (ABNORMAL) CBC - Hemogram (SJ-BKR) (10/31/2023 4:36 AM EDT) WBC 4.6 4.2 - 9.1 K/??L 10/31/2023 5:[address] [facility] RBC 4.75 4.63 - 6.08 M/??L 10/31/2023 5:[address] [facility] Hemoglobin 11.5(L) 13.7 - 17.5 GM/DL 10/31/2023 5:[address] [facility] Hematocrit 38.4(L) 40.1 - 51.0 % 10/31/2023 5:[address] [facility] MCV 81 79 - 92 fL 10/31/2023 5:[address] [facility] MCH 24.2(L) 25.7 - 32.2 pg 10/31/2023 5:[address] [facility] MCHC 29.9(L) 32.3 - 36.5 GM/DL 10/31/2023 5:[address] [facility] RDW 16.6(H) 11.6 - 14.4 % 10/31/2023 5:[address] [facility] Platelets 241 140 - 375 K/CU MM 10/31/2023 5:[address] [facility] MPV 11.2 9.4 - 12.4 fL 10/31/2023 5:[address] [facility] Blood Venipuncture / Unknown 10/31/2023 4:36 AM EDT 10/31/2023 5:[address] [facility] - 10/31/2023 5:08 AM EDT Note: reference ranges were changed on 04/27/2023. us Nohelia Deutsch DO LAB BLOOD ORDERABLES Final R esult [facility] [address] [phone] * (ABNORMAL) Basic Metabolic Panel (10/31/2023 4:36 AM EDT) Sodium 137 136 - 146 meq/L 10/31/2023 5:[address] [facility] Potassium 4.6 3.5 - 5.1 meq/L 10/31/2023 5:[address] [facility] Chloride 101(L) 102 - 112 meq/L 10/31/2023 5:[address] [facility] CO2 31 21 - 32 meq/L 10/31/2023 5:[address] [facility] Anion Gap 10 9 - 20 10/31/2023 5:[address] [facility] BUN 47(H) 7 - 22 mg/dL 10/31/2023 5:[address] [facility] Creatinine 3.38(H) 0.70 - 1.30 mg/dL 10/31/2023 5:[address] [facility] BUN/Creatinine 14 8 - 20 10/31/2023 5:[address] [facility] Glucose 132(H) 74 - 106 mg/dL 10/31/2023 5:[address] [facility] Calcium 9.1 8.4 - 10.1 mg/dL 10/31/2023 5:[address] [facility] Osmolality Calc 287.9 5:[address] [facility] eGFR (mL/min/1.73m2) 20(L) >=60 mL/min/1.7 3m2 10/31/2023 5:[address] [facility] Comment:eGFR of <60 suggests chronic kidney disease if found over a 3 month period of time. eGFR <15 indicates renal failure. Blood Venipuncture / Unknown 10/31/2023 4:36 AM EDT 10/31/2023 5:09 AM EDT us Gurinder Samayoa APRN LAB BLOOD ORDERABLES Final Result Performing Organization Address City/[facility]/ZIP Co de Phone Number [facility] [address] [phone] * Magnesium (10/31/2023 4:36 AM EDT) Magnesium 2.3 1.5 - 2.4 mg/dL 10/31/2023 5:[address] [facility] Blood Venipuncture / Unknown 10/31/2023 4:36 AM EDT 10/31/2023 5:09 AM EDT us Gurinder Samayoa LEGAL COMPLIANCE OFFICER LAB BLOOD ORDERABLES Final Result [facility] [address] [phone] * Glucose, Nova Meter (10/30/2023 8:43 PM EDT) POC-GLUCOSE 73 70 - 110 mg/dL 10/30/2023 8:[address] [facility] Comment: In the event of poor peripheral blood flow, venous or arterial blood should be used due to the potential of erroneous results. Notified Nurse RBV Loom Operator Apprentice [phone] 10/30/2023 8:[address] [facility] Blood WHOLE BLOOD / Unknown 10/30/2023 8:43 PM EDT 10/30/2023 8:[address] [facility] - 10/30/2023 8:45 PM EDT Loom Operator Apprentice ID is - [id number] [facility] DO POINT OF CARE TEST ORDERABLE S Final Result Performing Organization Address [facility]/ZIP Co de Phone Number [facility] [address] [phone] * Glucose, Nova Meter (10/30/2023 4:33 PM EDT) POC-GLUCOSE 99 70 - 110 mg/dL 10/30/2023 4:[address] [facility] Comment: In the event of poor peripheral blood flow, venous or arterial blood should be used due to the potential of erroneous results. Notified Nurse RBV Loom Operator Apprentice [phone] 10/30/2023 4:[address] [facility] Blood WHOLE BLOOD / Unknown 10/30/2023 4:33 PM EDT 10/30/2023 4:[address] [facility] - 10/30/2023 4:35 PM EDT Loom Operator Apprentice ID is - [id number] [email or web address] DO POINT OF CARE TEST ORDERABLE S Final Result Performing Organization Address City/[facility]/ZIP Co de Phone Number [facility] [address] [phone] * ECHO COMPLETE (DOPPLER / COLOR) WO CONTRAST (10/30/2023 1:00 PM EDT) Anatomical Region Laterality Modality Heart Vascular Ultraso und 10/30/2023 8:48 AM EDT Narrative 10/30/2023 1:07 PM EDT TRANSTHORACIC ECHOCARDIOGRAPHY REPORT Demographics Patient Name: ?XAVI ROBERT RAY ?: ?1965 ?JR. ?Age: ?58 year(s) Corporate ID Number: ?? [id number] ?Gender ?Male Acetylene Burner: ? LILLIAN Phillip ?Height: ? 73 inches Referring Physician: ?? KATHRYN CASTANEDA ?? Weight: ? 206 pounds ?MD Interpreting ? GILBERT DAILEY MD ?BMI: ?27.18 kg/m^2 Physician: Date of Service: ? 10/30/2023 ?Blood Pressure: 147/99 mmHg Room Number: ? 3158 Type of Study: TTE procedure: ECHO COMPLETE (DOPPLER / COLOR) W OR WO CONTRAST. Patient Status: Routine IP Study Location: PortableTechnical Quality: Adequate visualization History/Tech Notes: Indication: shortness of breath R06.02 Impression: ######################################## Normal sized left ventricle. Moderate left ventricular hypertrophy. Visually estimated ejection fraction 15% +/- 5%. Abnormal left ventricular systolic function; abnormal systolic strain pattern. Increased left atrial pressure (Grade II diastolic dysfunction). Dilated right ventricle. Abnormal TAPSE; abnormal right ventricular function. Moderate (2+) mitral regurgitation. Mild aortic valve regurgitation. Suspect low-flow low-gradient aortic stenosis. Aortic stenosis likely underestimated due to low stroke volume index. 25.56ml/m2 Peak P.00mmHg Mean P.97mmHg . Dimensionless index: 0.47 . Moderate (2+) tricuspid regurgitation. Moderate pulmonary hypertension. Elevated central venous pressure (>15mmHg). ######################################## Measurements Summary: LVEDd: 5.28 cm ? LVESd: 4.56 cm ?IVSEd: 1.31 cm AO Root:2.82 cm ?LVPWd: 1.47 cm Contractility Score Global Left Ventricular Hypokinesis was noted. LV regional wall motion: (0-Not visualized 1-Normal 2-Hypokinesis 3-Akinesis 4-Dyskinesis 5-Aneurysm) Left Ventricle Peak E-wave: 0.82 ?? Peak A-wave: 0.69 m/s ?? E/A ratio: 1.2 m/s ? Volume [id number] ??LV length: 10.08 ml ?cm Volume riikvixe56.45 ml LVOT diameter: 2.19 cm Normal sized left ventricle. Moderate left ventricular hypertrophy. Visually estimated ejection fraction 15% +/- 5%. Abnormal left ventricular systolic function; abnormal systolic strain pattern. Increased left atrial pressure (Grade II diastolic dysfunction). No left ventricular masses or thrombi. Right Ventricle Diastolic dimension: 5.49 ? RV systolic pressure: 51.72 mmHg cm Dilated right ventricle. Abnormal TAPSE; abnormal right ventricular function. Left Atrium LA dimension: 4.1 cm ? LA volume:87.91 ml LA/Aorta: 1.45 Mildly dilated left atrium. Abnormal left atrial volume index 40.32ml/m2. Intact atrial septum. No atrial mass or thrombus. Right Atrium Mildly dilated right atrium. Dilated IVC with no inspiratory collapse. Intact atrial septum. No atrial mass or thrombus. Mitral Valve Deceleration time: 146.29 msec ? MR velocity: 4.83 m/s Thickened leaflets; no stenosis. Mild mitral valve annulus calcification. Moderate (2+) mitral regurgitation. No mitral stenosis. No masses or vegetations seen. Aortic Valve AI P1/2t: ?Area continuity: ? Peak velocity: 1.94 m/s 1117.21 msec ? 1.75 cm^2 ?Peak gradient: 15.05 AV VTI: 31.76 cm Mean velocity: 1.24 ??mmHg LVOT VTI: 14.74 ??m/s ?Mean gradient: 7.12 mmHg cm ?Deceleration time: 3852.45 msec Three cusped aortic valve Calcified aortic valve leaflets. Aortic annulus calcification. Mild aortic valve regurgitation. Moderately restricted aortic valve opening of the RCC and NCC. Suspect low-flow low-gradient aortic stenosis. Aortic stenosis likely underestimated due to low stroke volume index. 25.56ml/m2 Peak P.00mmHg Mean P.97mmHg . Dimensionless index: 0.47 . No masses or vegetations seen. Tricuspid Valve TR velocity: 3.03 m/s ? TR gradient: 36.7236 mmHg Estimated RAP: 15 mmHg ?RVSP: 51.78 mmHg Thick tricuspid valve leaflets. Moderate (2+) tricuspid regurgitation. Moderate pulmonary hypertension. No tricuspid stenosis. No masses or vegetations seen. Pulmonic Valve PASP: 51.72 mmHg Structurally normal pulmonic valve. Abnormal pulmonary acceleration time. Mild pulmonic regurgitation. No pulmonic stenosis. No masses or vegetations seen. Great Vessels Aorta Aortic Root: 2.82 cm Ascending Aorta: 3.44 cm LVOT Diameter: 2.19 cm Visualized aorta is normal. Normal aortic root. No evidence of dissection. Dilated IVC with no inspiratory collapse. Elevated central venous pressure (>15mmHg). Pericardium / Pleura No pericardial effusion. Procedure Note Gilbert Dailey MD - 10/30/2023 TRANSTHORACIC ECHOCARDIOGRAPHY REPORT Demographics Patient Name: XAVI VANN : 1965 . 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 Patient Status: Routine IP Study Location: PortableTechnical Quality: Adequate visualization History/Tech Notes: Indication: shortness of breath R06.02 Impression: ######################################## Normal sized left ventricle. Moderate left ventricular hypertrophy. Visually estimated ejection fraction 15% +/- 5%. Abnormal left ventricular systolic function; abnormal systolic strain pattern. Increased left atrial pressure (Grade II diastolic dysfunction). Dilated right ventricle. Abnormal TAPSE; abnormal right ventricular function. Moderate (2+) mitral regurgitation. Mild aortic valve regurgitation. Suspect low-flow low-gradient aortic stenosis. Aortic stenosis likely underestimated due to low stroke volume index. 25.56ml/m2 Peak P.00mmHg Mean P.97mmHg . Dimensionless index: 0.47 . Moderate (2+) tricuspid regurgitation. Moderate pulmonary hypertension. Elevated central venous pressure (>15mmHg). ######################################## Measurements Summary: LVEDd: 5.28 cm LVESd: 4.56 cm IVSEd: 1.31 cm AO Root:2.82 cm LVPWd: 1.47 cm Contractility Score Global Left Ventricular Hypokinesis was noted. LV regional wall motion: (0-Not visualized 1-Normal 2-Hypokinesis 3-Akinesis 4-Dyskinesis 5-Aneurysm) Left Ventricle Peak E-wave: 0.82 Peak A-wave: 0.69 m/s E/A ratio: 1.2 m/s Volume [id number] LV length: 10.08 ml cm Volume bmumnnrr28.45 ml LVOT diameter: 2.19 cm Normal sized left ventricle. Moderate left ventricular hypertrophy. Visually estimated ejection fraction 15% +/- 5%. Abnormal left ventricular systolic function; abnormal systolic strain pattern. Increased left atrial pressure (Grade II diastolic dysfunction). No left ventricular masses or thrombi. Right Ventricle Diastolic dimension: 5.49 RV systolic pressure: 51.72 mmHg cm Dilated right ventricle. Abnormal TAPSE; abnormal right ventricular function. Left Atrium LA dimension: 4.1 cm LA volume:87.91 ml LA/Aorta: 1.45 Mildly dilated left atrium. Abnormal left atrial volume index 40.32ml/m2. Intact atrial septum. No atrial mass or thrombus. Right Atrium Mildly dilated right atrium. Dilated IVC with no inspiratory collapse. Intact atrial septum. No atrial mass or thrombus. Mitral Valve Deceleration time: 146.29 msec MR velocity: 4.83 m/s Thickened leaflets; no stenosis. Mild mitral valve annulus calcification. Moderate (2+) mitral regurgitation. No mitral stenosis. No masses or vegetations seen. Aortic Valve AI P1/2t: Area continuity: Peak velocity: 1.94 m/s 1117.21 msec 1.75 cm^2 Peak gradient: 15.05 AV VTI: 31.76 cm Mean velocity: 1.24 mmHg LVOT VTI: 14.74 m/s Mean gradient: 7.12 mmHg cm Deceleration time: 3852.45 msec Three cusped aortic valve Calcified aortic valve leaflets. Aortic annulus calcification. Mild aortic valve regurgitation. Moderately restricted aortic valve opening of the RCC and NCC. Suspect low-flow low-gradient aortic stenosis. Aortic stenosis likely underestimated due to low stroke volume index. 25.56ml/m2 Peak P.00mmHg Mean P.97mmHg . Dimensionless index: 0.47 . No masses or vegetations seen. Tricuspid Valve TR velocity: 3.03 m/s TR gradient: 36.7236 mmHg Estimated RAP: 15 mmHg RVSP: 51.78 mmHg Thick tricuspid valve leaflets. Moderate (2+) tricuspid regurgitation. Moderate pulmonary hypertension. No tricuspid stenosis. No masses or vegetations seen. Pulmonic Valve PASP: 51.72 mmHg Structurally normal pulmonic valve. Abnormal pulmonary acceleration time. Mild pulmonic regurgitation. No pulmonic stenosis. No masses or vegetations seen. Great Vessels Aorta Aortic Root: 2.82 cm Ascending Aorta: 3.44 cm LVOT Diameter: 2.19 cm Visualized aorta is normal. Normal aortic root. No evidence of dissection. Dilated IVC with no inspiratory collapse. Elevated central venous pressure (>15mmHg). Pericardium / Pleura No pericardial effusion. us Gurinder Samayoa APRN CV ECHO ORDERABLES Final Re sult * (ABNORMAL) Glucose, Nova Meter (10/30/2023 11:15 AM EDT) POC-GLUCOSE 117(H) 70 - 110 mg/dL 10/30/2023 11:[address] [facility] Comment: In the event of poor peripheral blood flow, venous or arterial blood should be used due to the potential of erroneous results. Notified Nurse RBV Loom Operator Apprentice [phone] 10/30/2023 11:[address] [facility] Blood WHOLE BLOOD / Unknown 10/30/2023 11:15 AM EDT 10/30/2023 11:[address] [facility] - 10/30/2023 11:17 AM EDT Loom Operator Apprentice ID is - [id number] us Nohelia Deutsch DO POINT OF CARE TEST ORDERABLE S Final Result [facility] [address] [phone] * XR chest AP portable (10/30/2023 9:57 AM EDT) Anatomical Region Laterality Modality Chest X-Ray 10/30/2023 2:54 PM EDT Impressions 10/30/2023 3:29 PM EDT 1. Cardiomegaly and mild interstitial opacity favored to be chronic. Follow-up better inflated PA and lateral chest radiograph may be of value. Images reviewed, interpreted, and dictated by Stephon Cedillo MD Narrative 10/30/2023 3:29 PM EDT Name: ROBERT HURLEY JR. : 1965 CHEST SINGLE VIEW COMPARISON: Chest from 12 April 2015 HISTORY: Shortness of breath. FINDINGS: Cardiac silhouette is moderately enlarged. Lungs are underinflated. Mild interstitial opacities seen in both lungs, probably chronic. Procedure Note Stephon Cedillo MD - 10/30/2023 Name: ROBERT HURLEY JR. : 1965 CHEST SINGLE VIEW COMPARISON: Chest from 12 April 2015 HISTORY: Shortness of breath. FINDINGS: Cardiac silhouette is moderately enlarged. Lungs are underinflated. Mild interstitial opacities seen in both lungs, probably chronic. IMPRESSION: 1. Cardiomegaly and mild interstitial opacity favored to be chronic. Follow-up better inflated PA and lateral chest radiograph may be of value. Images reviewed, interpreted, and dictated by Stephon Cedillo MD Nohelia Deutsch DO IMG DIAGNOSTIC IMAGING ORDER [place] Final Result * Glucose, Nova Meter (10/30/2023 7:36 AM EDT) Pathologist [facility] POC-GLUCOSE 87 70 - 110 mg/dL 10/30/2023 8:[address] [facility] Comment:In the event of poor peripheral blood flow, venous or arterial blood should be used due to the potential of erroneous results. Loom Operator Apprentice [phone] 10/30/2023 8:[address] [facility] Blood WHOLE BLOOD / Unknown 10/30/2023 7:36 AM EDT 10/30/2023 8:[address] [facility] - 10/30/2023 8:07 AM EDT Loom Operator Apprentice ID is - [id number] Nohelia Deutsch DO POINT OF CARE TEST ORDERABLE S Final Result [facility] [address] [phone] * (ABNORMAL) Lipid panel (10/30/2023 4:39 AM EDT) Pathologist [facility] Triglycerides 120 0 - 249 mg/dL 10/30/2023 10:[address] [facility] Cholesterol 195 0 - 199 mg/dL 10/30/2023 10:[address] [facility] Comment: 200 to 239 mg/dL = ??Moderate (borderline) >239 mg/dL ? = ??High HDL 56 >=40 mg/dL 10/30/2023 10:[address] [facility] Comment: >=60 mg/dL = Desirable <40 mg/dL ??= Increased Risk All other components are listed individually or are calculations VLDL 24 5 - 40 mg/dL 10/30/2023 10:[address] [facility] Cholesterol/HDL ratio 3.5(H) 0.0 - 3.2 10/30/2023 10:[address] [facility] LDl/HDL Ratio 2 0 - 4 10/30/2023 10:[address] [facility] RISK COMP 3 10/30/2023 10:[address] [facility] LDL Cholesterol, Calculated 115(H) 0 - 99 mg/dL 10/30/2023 10:[address] [facility] Blood Venipuncture / Unknown 10/30/2023 4:39 AM EDT 10/30/2023 5:25 AM EDT us Everett Reed LEGAL COMPLIANCE OFFICER LAB BLOOD ORDERABLES Final Result Performing Organization Address [facility]/ZIP Co de Phone Number [facility] [address] [phone] * Magnesium (10/30/2023 4:39 AM EDT) Magnesium 2.4 1.5 - 2.4 mg/dL 10/30/2023 5:[address] [facility] Blood Venipuncture / Unknown 10/30/2023 4:39 AM EDT 10/30/2023 5:25 AM EDT us Gurinder Samayoa LEGAL COMPLIANCE OFFICER LAB BLOOD ORDERABLES Final Result [facility] [address] [phone] * (ABNORMAL) CBC with automated diff (10/30/2023 4:39 AM EDT) WBC 4.5 4.2 - 9.1 K/??L 10/30/2023 5:[address] [facility] RBC 4.33(L) 4.63 - 6.08 M/??L 10/30/2023 5:[address] [facility] Hemoglobin 10.5(L) 13.7 - 17.5 GM/DL 10/30/2023 5:[address] [facility] Hematocrit 35.6(L) 40.1 - 51.0 % 10/30/2023 5:[address] [facility] MCV 82 79 - 92 fL 10/30/2023 5:[address] [facility] MCH 24.2(L) 25.7 - 32.2 pg 10/30/2023 5:[address] [facility] MCHC 29.5(L) 32.3 - 36.5 GM/DL 10/30/2023 5:[address] [facility] RDW 16.7(H) 11.6 - 14.4 % 10/30/2023 5:[address] [facility] Platelets 231 140 - 375 K/CU MM 10/30/2023 5:[address] [facility] MPV 11.0 9.4 - 12.4 fL 10/30/2023 5:[address] [facility] Nucleated Red Blood Cell 0.0 0 - 0.2 % 10/30/2023 5:[address] [facility] % Neutros 63 34 - 68 % 10/30/2023 5:[address] [facility] % Lymphs 25 22 - 53 % 10/30/2023 5:[address] [facility] % Monos 9 5 - 12 % 10/30/2023 5:[address] [facility] % Eos 2 1 - 7 % 10/30/2023 5:[address] [facility] % Baso 1 0 - 1 % 10/30/2023 5:[address] [facility] NRBC Absolute <0.01 0 - 0.012 K/ul 10/30/2023 5:[address] [facility] # Neutros 2.87 1.78 - 5.38 K/??L 10/30/2023 5:[address] [facility] # Lymphs 1.13(L) 1.32 - 3.57 K/??L 10/30/2023 5:[address] [facility] # Monos 0.42 0.30 - 0.82 K/??L 10/30/2023 5:[address] [facility] # Eos 0.07 0.04 - 0.54 K/??L 10/30/2023 5:[address] [facility] # Baso 0.04 0.01 - 0.08 K/??L 10/30/2023 5:[address] [facility] Immature Granulocytes-Re lative 0.20 0.01 - 0.43 % 10/30/2023 5:[address] [facility] # IG <0.03 0.00 - 0.03 K/uL 10/30/2023 5:[address] [facility] Blood Venipuncture / Unknown 10/30/2023 4:39 AM EDT 10/30/2023 5:[address] [facility] - 10/30/2023 5:44 AM EDT When CBC w/ Auto Diff is ordered the lab will add a Manual Differential as a quality check at no additional charge if: Lymphocytes greater than seventy five percent with normal or increased WBC Monocytes greater than Fifteen percent Basophil greater than four percent Bands >10% or several immature myeloids are seen on scan Blast? Flag noted Atypical Lymph flag noted Note: reference ranges were changed on 04/27/2023. us Nohelia Deutsch DO LAB BLOOD ORDERABLES Final R esult [facility] [address] [phone] * (ABNORMAL) Comprehensive metabolic panel (10/30/2023 4:39 AM EDT) Sodium 138 136 - 146 meq/L 10/30/2023 5:[address] [facility] Potassium 4.8 3.5 - 5.1 meq/L 10/30/2023 5:[address] [facility] Chloride 105 102 - 112 meq/L 10/30/2023 5:[address] [facility] CO2 27 21 - 32 meq/L 10/30/2023 5:58 AM [facility] Calcium 9.1 8.4 - 10.1 mg/dL 10/30/2023 5:58 AM [facility] Glucose 88 74 - 106 mg/dL 10/30/2023 5:58 AM [facility] BUN 43(H) 7 - 22 mg/dL 10/30/2023 5:58 AM [facility] Creatinine 3.35(H) 0.70 - 1.30 mg/dL 10/30/2023 5:58 AM [facility] BUN/Creatinine 13 8 - 20 10/30/2023 5:58 AM [facility] Albumin 2.6(L) 3.4 - 5.0 g/dL 10/30/2023 5:58 AM [facility] Alkaline Phosphatase 171(H) 27 - 136 U/L 10/30/2023 5:58 AM [facility] ALT 15(L) 16 - 61 U/L 10/30/2023 5:58 AM [facility] AST 34 5 - 37 U/L 10/30/2023 5:58 AM [facility] Total Bilirubin 1.1 0.2 - 1.2 mg/dL 10/30/2023 5:58 AM [facility] Protein, Total 6.5 6.4 - 8.2 gm/dL 10/30/2023 5:58 AM [facility] Anion Gap 11 9 - 20 10/30/2023 5:58 AM [facility] A/G Ratio 0.7(L) 1.1 - 2.5 10/30/2023 5:58 AM [facility] Globulin 3.9 1.5 - 4.5 g/dL 10/30/2023 5:58 AM [facility] Osmolality Calc 285.9 5:58 AM [facility] eGFR (mL/min/1.73m2) 21(L) >=60 mL/min/1.7 3m2 10/30/2023 5:58 AM [facility] Comment:ESTIMATED GFR IS NOT ACCURATE CREATININE CLEARANCE IN PREDICTING GLOMERULAR FILTRATION RATE. ESTIMATED GFR IS NOT APPLICABLE FOR DIALYSIS PATIENTS. Blood Venipuncture / Unknown 10/30/2023 4:39 AM EDT 10/30/2023 5:25 AM EDT Nohelia Deutsch DO LAB BLOOD ORDERABLES Final R esult Performing Organization Address City/[facility]/ZIP Co de Phone Number [facility] [address] [phone] * (ABNORMAL) Glucose, Nova Meter (10/29/2023 8:37 PM EDT) POC-GLUCOSE 165(H) 70 - 110 mg/dL 10/29/2023 8:[address] [facility] Comment: In the event of poor peripheral blood flow, venous or arterial blood should be used due to the potential of erroneous results. Notified Nurse RBV Loom Operator Apprentice [phone] 10/29/2023 8:[address] [facility] Blood WHOLE BLOOD / Unknown 10/29/2023 8:37 PM EDT 10/29/2023 8:[address] [facility] - 10/29/2023 8:37 PM EDT Loom Operator Apprentice ID is - [id number] Nohelia Deutsch DO POINT OF CARE TEST ORDERABLE S Final Result Performing Organization Address City/[facility] Co de Phone Number [facility] [address] [phone] * (ABNORMAL) Glucose, Nova Meter (10/29/2023 7:23 PM EDT) POC-GLUCOSE 158(H) 70 - 110 mg/dL 10/29/2023 7:[address] [facility] Comment: In the event of poor peripheral blood flow, venous or arterial blood should be used due to the potential of erroneous results. Notified Nurse RBV Loom Operator Apprentice [phone] 10/29/2023 7:[address] [facility] Blood WHOLE BLOOD / Unknown 10/29/2023 7:23 PM EDT 10/29/2023 7:[address] [facility] - 10/29/2023 7:25 PM EDT Loom Operator Apprentice ID is - [id number] Nohelia Hernandezpankaj DO POINT OF CARE TEST ORDERABLE S Final Result [facility] [address] [phone] * ECG 12 lead (10/29/2023 6:24 PM EDT) VENTRICULAR RATE EKG/MIN 84 BPM GE MUSE ATRIAL RATE (MCT) 84 BPM GE MUSE TN Interval 150 ms GE MUSE QRS-INTERVAL (MSEC) 120 ms GE MUSE QT Interval 410 ms GE MUSE QTC Interval 484 ms GE MUSE P Arab 55 degrees GE MUSE R AXIS (MCT) -9 degrees GE MUSE T Wave Arab 124 degrees GE MUSE [place] Diagnosis Normal sinus rhythm Cannot rule out Anterior infarct , age undetermined Abnormal ECG No previous ECGs available Confirmed by Kacy Montez ([id number]) on 11/05/2023 8:13:43 PM GE MUSE 10/29/2023 6:24 PM EDT 11/05/2023 8:13 PM EDT Gurinder Samayoa APRN ECG ORDERABLES Final Resul t Performing Organization Address City/[facility]/ZIP Co de Phone Number GE MUSE * Magnesium (10/29/2023 5:50 PM EDT) Magnesium 2.3 1.5 - 2.4 mg/dL 10/29/2023 6:[address] [facility] Blood Venipuncture / Unknown 10/29/2023 5:50 PM EDT 10/29/2023 5:53 PM EDT Gurinder Samayoa APRN LAB BLOOD ORDERABLES Final Result [facility] [address] [phone] * TSH with Reflex FT4 (10/29/2023 5:50 PM EDT) [facility] TSH 2.420 0.358 - 3.740 uIU/mL 10/29/2023 6:[address] [facility] Blood Venipuncture / Unknown 10/29/2023 5:50 PM EDT 10/29/2023 5:[address] [facility] - 10/29/2023 6:42 PM EDT Biotin supplements can cause clinically significant incorrect lab results. The FDA has seen an increase in the number of adverse events related to Biotin interference with lab tests. us Gurinder Samayoa APRN LAB BLOOD ORDERABLES Final Result Performing Organization Address [facility] Co de Phone Number [facility] [address] [phone] * (ABNORMAL) PROBNP (10/29/2023 5:50 PM EDT) [facility] ProBNP (pg/mL) 81,260(H) 0 - 125 pg/mL 10/29/2023 6:[address] [facility] Blood Venipuncture / Unknown 10/29/2023 5:50 PM EDT 10/29/2023 5:53 PM EDT us Nohelia Deutsch DO LAB BLOOD ORDERABLES Final R esult Performing Organization Address [facility]/ZIP Co de Phone Number [facility] [address] [phone] * (ABNORMAL) Glucose, Nova Meter (10/29/2023 4:28 PM EDT) [facility] POC-GLUCOSE 136(H) 70 - 110 mg/dL 10/29/2023 4:[address] [facility] Comment: In the event of poor peripheral blood flow, venous or arterial blood should be used due to the potential of erroneous results. Notified Nurse RBV Loom Operator Apprentice [phone] 10/29/2023 4:[address] [facility] Blood WHOLE BLOOD / Unknown 10/29/2023 4:28 PM EDT 10/29/2023 4:[address] [facility] - 10/29/2023 4:29 PM EDT Loom Operator Apprentice ID is - [id number] us Nohelia Deutsch DO POINT OF CARE TEST ORDERABLE S Final Result [facility] [address] [phone] * EKG-SCANNED (10/29/2023) Narrative 10/29/2023 Ordered by an unspecified provider. us Default Scanning Provider SCAN ORDERS Final Result documented in this encounter Visit Diagnoses Diagnosis Acute on chronic diastolic CHF (congestive heart failure) (HCC)- Primary Acute on chronic diastolic CHF (congestive heart failure) (HCC) documented in this encounter Admitting Diagnoses Diagnosis Acute on chronic diastolic CHF (congestive heart failure) (HCC) documented in this encounter Administered Medications Inactive Administered Medications - up to 3 most recent administrations Medication Order MAR Action Action Date Dose Rate Site acetaminophen (TYLENOL) tablet 650 mg 650 mg Every 6 hours PRN, oral, mild pain (1-3), moderate pain (4-6), Starting on Wed10/29/23 at 1617, Recommended maximum dose of acetaminophen is 4000 mg from all sources in 24 hours Given 11/02/2023 11:22 PM EDT 650 mg ammonium lactate (LAC-HYDRIN) topical lotion 12% topical, 2 times daily, First dose (after last modification) on 11/01/23 at 0900, Wash BLE with warm soap and water and rub generous amount of Lac-Hydrin to BLE BID Given 11/08/2023 8:31 AM EDT Given 11/07/2023 9:50 PM EDT Given 11/07/2023 8:14 AM EDT aspirin EC tablet 81 mg 81 mg Daily, oral, First dose on Wed10/30/23 at 1030, * DO NOT CRUSH THIS DOSAGE FORM * Given 11/08/2023 8:29 AM EDT 81 m g Given 11/07/2023 8:13 AM EDT 81 mg Given 11/06/2023 8:58 AM EDT 81 mg atorvastatin (LIPITOR) tablet 80 mg 80 mg Every Night, oral, First dose on Wed10/30/23 at 2100 Given 11/07/2023 9:48 PM EDT 80 mg Given 11/06/2023 9:46 PM EDT 80 mg Given 11/05/2023 9:48 PM EDT 80 mg bumetanide (BUMEX) injection 2 mg 2 mg 2 times daily diuretic, intravenous, First dose on Wed10/31/23 at 0900 Given 11/02/2023 8:19 AM EDT 2 mg Given 11/01/2023 4:08 PM EDT 2 mg Given 11/01/2023 8:08 AM EDT 2 mg bumetanide (BUMEX) injection 2 mg 2 mg Once, intravenous, On Wed11/05/23 at 1700, For 1 dose Given 11/05/2023 5:19 PM EDT 2 mg bumetanide (BUMEX) tablet 1 mg 1 mg 2 times daily diuretic, oral, First dose on Wed11/03/23 at 0900 Given 11/03/2023 8:27 AM EDT 1 mg bumetanide (BUMEX) tablet 2 mg 2 mg Daily, oral, First dose on Wed10/29/23 at 1630 Given 10/30/2023 8:31 AM EDT 2 mg Given 10/29/2023 5:10 PM EDT 2 mg bumetanide (BUMEX) tablet 2 mg 2 mg Daily, oral, First dose (after last modification) on Wed11/05/23 at 0900 Given 11/08/2023 8:28 AM EDT 2 mg Given 11/07/2023 8:13 AM EDT 2 mg Given 11/05/2023 9:00 AM EDT 2 mg cefTRIAXone (ROCEPHIN) 1 g in sodium chloride 0.9% (NS) 50 mL DI IVPB 1 g Every 24 hours, intravenous, at 100 mL/hr, First dose on Wed10/29/23 at 1630, Please choose an indication: Skin/Soft Tissue Infection IVPB Started 11/02/2023 3:56 PM EDT 1 g 100 mL/hr IVPB Started 11/01/2023 4:08 PM EDT 1 g 100 mL/hr IVPB Started 10/31/2023 4:36 PM EDT 1 g 100 mL/hr cephalexin (KEFLEX) capsule 250 mg 250 mg Every 8 hours scheduled, oral, First dose on Wed11/03/23 at 2100, Please choose an indication: Skin/Soft Tissue Infection Given 11/08/2023 1:01 PM EDT 250 m g Given 11/08/2023 4:25 AM EDT 250 mg Given 11/07/2023 9:48 PM EDT 250 mg dextrose 50% (D50W) injection 25 g 25 g Every 15 min PRN, intravenous, low blood glucose (specify value in prn comments), less than 41 mg/dL or 41-69 mg/dL and unable to take PO, Starting on Wed10/29/23 at 1606, Repeat blood glucose every 15 minutes until blood glucose greater than 70 mg/dL. Call Provider if not resolved after 2 treatments Repeat BS in 1 hour, retime for 1 hour after blood sugar greater than 70 mg/dL If less than 41: Repeat Finger stick within 5 minutes with same machine Send serum glucose level: Do not wait on lab to treat doxycycline (VIBRAMYCIN) capsule 100 mg 100 mg Every 12 hours scheduled, oral, First dose on Wed11/03/23 at 2100, For 5 days, Please choose an indication: Skin/Soft Tissue Infection Given 11/07/2023 9:48 PM EDT 100 mg Given 11/07/2023 8:13 AM EDT 100 mg Given 11/06/2023 9:46 PM EDT 100 mg empagliflozin (JARDIANCE) tablet 10 mg 10 mg Daily, oral, First dose on Wed10/29/23 at 1630, Therapeutic Interchange for SGLT2 Inhibitors., Is the patient scheduled for surgery in the next 3 days? No, On hold since 10/30/2023 at 1616 until manually unheld Given 10/30/2023 8:31 AM EDT 1 0 mg Given 10/29/2023 5:10 PM EDT 10 mg glucagon injection 1 mg 1 mg Every 15 min PRN, intraMUSCULAR, low blood glucose (specify value in prn comments), For Patients without IV access and blood glucose 41-69 mg/dL AND unable to take PO OR Less than 41 mg/dL, Starting on Wed10/29/23 at 1606, Caution: glucagon . Roll patient on their side when administering to prevent aspiration. Call Provider if not resolved after 2 treatments Repeat BS in 1 hour, retime for 1 hour after blood sugar greater than 70 mg/dL glucose chewable tablet 16 g 16 g Every 15 min PRN, oral, low blood glucose (specify value in prn comments), 41-69 mg/dL, Starting on Wed10/29/23 at 1606, For Patients who can take oral AND blood glucose 41-69 mg/dL Give 4 Tabs every 15 minutes. Recheck blood glucose every 15 minutes and repeat 15 grams of carbohydrates until blood glucose is above 70 mg/dL. Give Meal or Snack Call Provider if not resolved after 3 treatments Repeat BS in 1 hour, retime for 1 hour after blood sugar greater than 70 mg/dL guaiFENesin (mucINEX) 12 hr tablet 600 mg 600 mg 2 times daily, oral, First dose on Wed10/30/23 at 1000, * DO NOT CRUSH THIS DOSAGE FORM * Look-alike/Sound-alike medication Given 11/04/2023 8:46 AM EDT 600 mg Given 11/03/2023 8:29 PM EDT 600 mg Given 11/03/2023 8:26 AM EDT 600 mg heparin injection 5,000 Units 5,000 Units Every 12 hours scheduled, subcutaneous, First dose on Wed10/29/23 at 2100 Given 11/08/2023 8:30 AM EDT 5,000 Units Abdominal Tissue Given 11/07/2023 9:49 PM EDT 5,000 Units A bdominal Tissue Given 11/07/2023 8:14 AM EDT 5,000 Units A bdominal Tissue hydrALAZINE (APRESOLINE) tablet 10 mg 10 mg Every 8 hours scheduled, oral, First dose on Wed10/31/23 at 1300, Antihypertensive - Check BP - Check Pulse Look-alike/Sound-alike medication Given 11/08/2023 1:01 PM EDT 10 mg Given 11/08/2023 4:25 AM EDT 10 mg Given 11/07/2023 9:49 PM EDT 10 mg hydrocortisone cream 0.5% topical, 2 times daily, First dose on Wed10/31/23 at 0930, To back Given 11/08/2023 8:31 AM EDT Given 11/07/2023 9:50 PM EDT Given 11/07/2023 8:14 AM EDT hydrOXYzine (ATARAX) tablet 25 mg 25 mg 3 times daily PRN, oral, itching, Starting on 10/31/23 at 0911, Look-alike/Sound-alike medication Given 10/31/2023 10:43 AM EDT 25 mg insulin glargine-yfgn (SEMGLEE) solution 10 Units 10 Units Every Night, subcutaneous, First dose on Wed10/29/23 at 2100 Given 11/07/2023 9:49 PM EDT 10 Units Abdominal Tissue Given 11/06/2023 9:46 PM EDT 10 Units Ab dominal Tissue Given 11/04/2023 8:51 PM EDT 10 Units Le ft Arm insulin lispro (HUMALOG, ADMELOG) injection 0-18 Units 0-18 Units 4 times daily (before meals and nightly), subcutaneous, First dose on Wed10/29/23 at 1630, If Blood Sugar is less than 180 beteween 0255-4119, DO NOT give corrective insulin unless otherwise ordered. Corrective Scale C 0 units for fingerstick blood glucose LESS than 140 mg/dL 3 units subcutaneously once for fingerstick blood glucose [140] - [180] mg/dL 6 units subcutaneously once for fingerstick blood glucose [181] - [220] mg/dL 9 units subcutaneously once for fingerstick blood glucose [221] - [260] mg/dL 12 units subcutaneously once for fingerstick blood glucose [261] - [300] mg/dL 15 units subcutaneously once for fingerstick blood glucose [301] - [350] mg/dL 18 units subcutaneously once for fingerstick blood glucose [351] - [400] mg/dL Notify provider of glucose levels LESS than [70] and GREATER than [400] Given 11/07/2023 9:50 PM EDT 6 Units Abdominal Tissue Given 11/07/2023 5:42 PM EDT 3 Units Le ft Arm Given 11/07/2023 11:49 AM EDT 3 Units L eft Arm ipratropium-albuteroL (DUO-NEB) 0.5 mg-3 mg(2.5 mg base)/3 mL nebulizer solution 3 mL 3 mL Every 6 hours PRN, nebulization, wheezing, Starting on Wed10/29/23 at 1617, RESPIRATORY THERAPY TREATMENT Protect from Light, What is the respiratory therapy Modality? Small volume Nebulization Given 11/07/2023 4:34 AM EDT 3 mLs isosorbide dinitrate (ISORDIL) tablet 10 mg 10 mg 3 times daily, oral, First dose on Wed10/31/23 at 0900 Given 11/08/2023 2:37 PM EDT 10 mg Given 11/08/2023 8:28 AM EDT 10 mg Given 11/07/2023 9:48 PM EDT 10 mg loratadine (CLARITIN) tablet 10 mg 10 mg Daily, oral, First dose on Wed10/31/23 at 1030 Given 11/08/2023 8:30 AM EDT 10 mg Given 11/07/2023 8:13 AM EDT 10 mg Given 11/06/2023 8:58 AM EDT 10 mg melatonin tablet 3 mg 3 mg Every Night, oral, First dose on Wed10/29/23 at 2100 Given 11/07/2023 9:48 PM EDT 3 mg Given 11/06/2023 9:46 PM EDT 3 mg Given 11/05/2023 9:48 PM EDT 3 mg metoprolol succinate (TOPROL-XL) 24 hr tablet 50 mg 50 mg Daily, oral, First dose on Wed10/29/23 at 1630, Hold for systolic BP < 90 mmHg or for HR < 50 BPM Do Not Crush or Chew (Tablet may be split) Given 10/30/2023 8:31 AM EDT 50 mg Given 10/29/2023 5:11 PM EDT 50 mg metoprolol succinate (TOPROL-XL) 24 hr tablet 75 mg 75 mg Daily, oral, First dose (after last modification) on Wed10/31/23 at 0900, Hold for systolic BP < 90 mmHg or for HR < 50 BPM Do Not Crush or Chew (Tablet may be split)Indications:Acute on chronic diastolic CHF (congestive heart failure) (HCC) Given 11/08/2023 8:29 AM EDT 75 mg Given 11/07/2023 8:13 AM EDT 75 mg Given 11/06/2023 8:58 AM EDT 75 mg nicotine (NICODERM CQ) patch 21 mg/24 hr 1 patch Daily, transdermal, Administer over 24 Hours, First dose on Wed10/29/23 at 1630, For 14 days ondansetron (ZOFRAN-ODT) disintegrating tablet 4 mg 4 mg Every 8 hours PRN, oral, nausea, vomiting, Starting on Wed10/29/23 at 1608, 1st line. If inadequate response within 60 minutes, proceed to next-line agent for same PRN reason or contact provider if no further options ordered. ondansetron PF (ZOFRAN) injection 4 mg 4 mg Every 8 hours PRN, intravenous, nausea, vomiting, Starting on Wed10/29/23 at 1608, Give IV if patient is unable to take orally. 1st line If inadequate response within 60 minutes, proceed to next-line agent for same PRN reason or contact provider if no further options ordered. For IV push, give over 2 - 5 minutes. oxyCODONE (ROXICODONE) immediate release tablet 10 mg 10 mg Every 6 hours PRN, oral, severe pain (7-10), Starting on Wed10/29/23 at 1617, Look-alike/Sound-alike medication Given 11/03/2023 11:16 AM EDT 10 mg Given 11/03/2023 3:59 AM EDT 10 mg Given 11/02/2023 8:28 PM EDT 10 mg oxyCODONE (ROXICODONE) immediate release tablet 5 mg 5 mg Every 6 hours PRN, oral, moderate pain (4-6), Starting on Wed10/29/23 at 1617, Look-alike/Sound-alike medication sacubitriL-valsartan (ENTRESTO) 24-26 mg tablet 1 tablet 1 tablet 2 times daily, oral, First dose on Wed10/29/23 at 2100, Hold if SBP < 90 mmHg, or patient is on pressor Caution: Recommend wearing gloves during administration. DO NOT BREAK/CRUSH/CHEW. Employees who are , trying to become , or should not handle this medication. Dispose of trace medication (including packaging) in the BLACK waste bin., Has the patient been on an NARESH inhibitor in the past 36 hours? (Patient must have 36 hour washout period between stopping NARESH inhibitor and starting Entresto.): No, On hold since 10/30/2023 at 1616 until manually unheld Given 10/30/2023 8:31 AM EDT 1 tablet Given 10/29/2023 9:20 PM EDT 1 tablet documented in this encounter Active and Recently Administered Medications Times are shown in EDT. Scheduled Medication Order 11/06/2023 11/07/2023 11/08/2023 ammonium lactate (LAC-HYDRIN) topical lotion 12% topical, 2 times daily, First dose (after last modification) on Wed11/01/23 at 0900, Wash BLE with warm soap and water and rub generous amount of Lac-Hydrin to BLE BID 0902 (Given - Provider: Cathy Ragland RN)214 (Given - Provider: Sarah Caro) 0814 (Given - Provider: Cathy Ragland, JAME)2150 (Given - Provider: Tess Robin, JAME) 0831 (Given - Provider: Ame Lopez, RN) aspirin EC tablet 81 mg 81 mg Daily, oral, First dose on 10/30/23 at 1030, * DO NOT CRUSH THIS DOSAGE FORM * 0858 (Given - Provider: Cathy Ragland RN) 0813 (Given - Provider: Cathy Ragland RN) 0829 (Given - Provider: Ame Lopez, JAME) atorvastatin (LIPITOR) tablet 80 mg 80 mg Every Night, oral, First dose on 10/30/23 at 2100 2146 (Given - Provider: Sarah Caro) 2148 (Given - Provider: Tess Robin, JAME) bumetanide (BUMEX) tablet 2 mg 2 mg Daily, oral, First dose (after last modification) on Wed11/05/23 at 0900 0900 (Not Given - Provider: Cathy Ragland RN - Reason: Patient/family refused) 0813 (Given - Provider: Cathy Ragland RN) 0828 (Given - Provider: Ame Lopez, JAME) cephalexin (KEFLEX) capsule 250 mg 250 mg Every 8 hours scheduled, oral, First dose on Wed11/03/23 at 2100, Please choose an indication: Skin/Soft Tissue Infection 0408 (Given - Provider: Sarah Caro)1251 (Given - Provider: Cathy Ragland RN)2146 (Given - Provider: Sarah Caro) 0405 (Given - Provider: Sarah Caro)1314 (Given - Provider: Cathy Ragland RN)2148 (Given - Provider: Tess Robin, JAME) 0425 (Given - Provider: Tess Robin, JAME)1301 (Given - Provider: Ame Lopez RN) doxycycline (VIBRAMYCIN) capsule 100 mg 100 mg Every 12 hours scheduled, oral, First dose on Wed11/03/23 at 2100, For 5 days, Please choose an indication: Skin/Soft Tissue Infection 0858 (Given - Provider: Cathy Ragland RN)2146 (Given - Provider: Sarah Caro) 0813 (Given - Provider: Cathy Ragland RN)214 (Given - Provider: Tess Robin, JAME) 1654 (Not Given - Provider: Ame Lopez RN - Reason: Medication/ Dose Unavailable) empagliflozin (JARDIANCE) tablet 10 mg 10 mg Daily, oral, First dose on Wed10/29/23 at 1630, Therapeutic Interchange for SGLT2 Inhibitors., Is the patient scheduled for surgery in the next 3 days? No, On hold since Wed10/30/2023 at 1616 until manually unheld 0900 (Automatically Held) 0900 (Automatically Held) 0900 (Hold - Provider: Ame Lopez RN - Reason: Per MD Order)1550 (Unheld by provider - Provider: Automatic Discharge Provider) heparin injection 5,000 Units 5,000 Units Every 12 hours scheduled, subcutaneous, First dose on Wed10/29/23 at 2100 0901 (Not Given - Provider: Cathy Ragland RN - Reason: Patient/family refused)2146 (Given - Provider: Sarah Caro) 0814 (Given - Provider: Cathy Ragland RN)2149 (Given - Provider: Tess Robin, JAME) 0830 (Given - Provider: Ame Lpoez RN) hydrALAZINE (APRESOLINE) tablet 10 mg 10 mg Every 8 hours scheduled, oral, First dose on Wed10/31/23 at 1300, Antihypertensive - Check BP - Check Pulse Look-alike/Sound-alike medication 0408 (Given - Provider: Sarah Caro)1251 (Given - Provider: Cathy Ragland RN)2145 (Given - Provider: Sarah Caro) 0405 (Given - Provider: Sarah Caro)1309 (Given - Provider: Cathy Ragland RN)214 (Given - Provider: Tess Robin, JAME) 0425 (Given - Provider: Tess Robin RN)1301 (Given - Provider: Ame Lopez RN) hydrocortisone cream 0.5% topical, 2 times daily, First dose on Wed10/31/23 at 0930, To back 0901 (Given - Provider: Cathy Ragland RN)2146 (Given - Provider: Sarah Caro) 0814 (Given - Provider: Cathy Ragland RN)2150 (Given - Provider: Tess Robin RN) 0831 (Given - Provider: Ame Lopez RN) insulin glargine-yfgn (SEMGLEE) solution 10 Units 10 Units Every Night, subcutaneous, First dose on Wed10/29/23 at 2100 214 (Given - Provider: Sarah Caro) 214 (Given - Provider: Tess Robin RN) insulin lispro (HUMALOG, ADMELOG) injection 0-18 Units 0-18 Units 4 times daily (before meals and nightly), subcutaneous, First dose on Wed10/29/23 at 1630, If Blood Sugar is less than 180 beteween 0667-4500, DO NOT give corrective insulin unless otherwise ordered. Corrective Scale C 0 units for fingerstick blood glucose LESS than 140 mg/dL 3 units subcutaneously once for fingerstick blood glucose [140] - [180] mg/dL 6 units subcutaneously once for fingerstick blood glucose [181] - [220] mg/dL 9 units subcutaneously once for fingerstick blood glucose [221] - [260] mg/dL 12 units subcutaneously once for fingerstick blood glucose [261] - [300] mg/dL 15 units subcutaneously once for fingerstick blood glucose [301] - [350] mg/dL 18 units subcutaneously once for fingerstick blood glucose [351] - [400] mg/dL Notify provider of glucose levels LESS than [70] and GREATER than [400] 0842 (Not Given - Provider: Cathy Ragland RN - Reason: Within Medication Parameters)1113 (Not Given - Provider: Cathy Ragland RN - Reason: Patient/family refused)1721 (Given - Provider: Cathy Ragland RN)2146 (Given - Provider: Sarah Caro) 0801 (Not Given - Provider: Cathy Ragland RN - Reason: Within Medication Parameters)1149 (Given - Provider: Cathy Ragland RN)1742 (Given - Provider: Cathy Ragland RN)2150 (Given - Provider: Tess Robin RN) 0751 (Not Given - Provider: Ame Lopez RN - Reason: VS / Lab Parameters not met)1302 (Not Given - Provider: Ame Lopez RN - Reason: Patient/family refused) isosorbide dinitrate (ISORDIL) tablet 10 mg 10 mg 3 times daily, oral, First dose on 10/31/23 at 0900 0858 (Given - Provider: Cathy Ragland RN)1522 (Given - Provider: Cathy Ragland RN)2145 (Given - Provider: Sarah Caro) 0813 (Given - Provider: Cathy Ragland RN)1541 (Given - Provider: Cathy Ragland RN)2148 (Given - Provider: Tess Robin, JAME) 0828 (Given - Provider: Ame Lopez RN)1437 (Given - Provider: Ame Lopez RN) loratadine (CLARITIN) tablet 10 mg 10 mg Daily, oral, First dose on 10/31/23 at 1030 0858 (Given - Provider: Cathy Ragland RN) 0813 (Given - Provider: Cathy Ragland RN) 0830 (Given - Provider: Ame Lopez RN) melatonin tablet 3 mg 3 mg Every Night, oral, First dose on Wed10/29/23 at 2100 2146 (Given - Provider: Sarah Caro) 2148 (Given - Provider: Tess Robin, JAME) metoprolol succinate (TOPROL-XL) 24 hr tablet 75 mg 75 mg Daily, oral, First dose (after last modification) on 10/31/23 at 0900, Hold for systolic BP < 90 mmHg or for HR < 50 BPM Do Not Crush or Chew (Tablet may be split) 0858 (Given - Provider: Cathy Ragland RN) 0813 (Given - Provider: Cathy Ragland, RN) 0829 (Given - Provider: Ame Lopez RN) nicotine (NICODERM CQ) patch 21 mg/24 hr 1 patch Daily, transdermal, Administer over 24 Hours, First dose on Wed10/29/23 at 1630, For 14 days 0901 (Not Given - Provider: Cathy Ragland RN - Reason: Patient/family refused) 0814 (Not Given - Provider: Cathy Ragland RN - Reason: Patient/family refused) 0828 (Not Given - Provider: Ame Lopez RN - Reason: Patient/family refused) sacubitriL-valsartan (ENTRESTO) 24-26 mg tablet 1 tablet 1 tablet 2 times daily, oral, First dose on Wed10/29/23 at 2100, Hold if SBP < 90 mmHg, or patient is on pressor Caution: Recommend wearing gloves during administration. DO NOT BREAK/CRUSH/CHEW. Employees who are , trying to become , or should not handle this medication. Dispose of trace medication (including packaging) in the BLACK waste bin., Has the patient been on an NARESH inhibitor in the past 36 hours? (Patient must have 36 hour washout period between stopping NARESH inhibitor and starting Entresto.): No, On hold since 10/30/2023 at 1616 until manually unheld 0900 (Automatically Held)2100 (Automatically Held) 0900 (Automatically Held)2100 (Automatically Held) 0900 (Not Given - Provider: Ame Lopez RN - Reason: Per MD Order)1550 (Unheld by provider - Provider: Automatic Discharge Provider) PRN Medication Order 11/06/2023 11/07/2023 11/08/2023 acetaminophen (TYLENOL) tablet 650 mg 650 mg Every 6 hours PRN, oral, mild pain (1-3), moderate pain (4-6), Starting on Wed10/29/23 at 1617, Recommended maximum dose of acetaminophen is 4000 mg from all sources in 24 hours dextrose 50% (D50W) injection 25 g 25 g Every 15 min PRN, intravenous, low blood glucose (specify value in prn comments), less than 41 mg/dL or 41-69 mg/dL and unable to take PO, Starting on Wed10/29/23 at 1606, Repeat blood glucose every 15 minutes until blood glucose greater than 70 mg/dL. Call Provider if not resolved after 2 treatments Repeat BS in 1 hour, retime for 1 hour after blood sugar greater than 70 mg/dL If less than 41: Repeat Finger stick within 5 minutes with same machine Send serum glucose level: Do not wait on lab to treat glucagon injection 1 mg 1 mg Every 15 min PRN, intraMUSCULAR, low blood glucose (specify value in prn comments), For Patients without IV access and blood glucose 41-69 mg/dL AND unable to take PO OR Less than 41 mg/dL, Starting on Wed10/29/23 at 1606, Caution: glucagon . Roll patient on their side when administering to prevent aspiration. Call Provider if not resolved after 2 treatments Repeat BS in 1 hour, retime for 1 hour after blood sugar greater than 70 mg/dL glucose chewable tablet 16 g 16 g Every 15 min PRN, oral, low blood glucose (specify value in prn comments), 41-69 mg/dL, Starting on Wed10/29/23 at 1606, For Patients who can take oral AND blood glucose 41-69 mg/dL Give 4 Tabs every 15 minutes. Recheck blood glucose every 15 minutes and repeat 15 grams of carbohydrates until blood glucose is above 70 mg/dL. Give Meal or Snack Call Provider if not resolved after 3 treatments Repeat BS in 1 hour, retime for 1 hour after blood sugar greater than 70 mg/dL hydrOXYzine (ATARAX) tablet 25 mg 25 mg 3 times daily PRN, oral, itching, Starting on Wed10/31/23 at 0911, Look-alike/Sound-alike medication ipratropium-albuteroL (DUO-NEB) 0.5 mg-3 mg(2.5 mg base)/3 mL nebulizer solution 3 mL 3 mL Every 6 hours PRN, nebulization, wheezing, Starting on Wed10/29/23 at 1617, RESPIRATORY THERAPY TREATMENT Protect from Light, What is the respiratory therapy Modality? Small volume Nebulization 2344 (Given - Provider: Valentino Vogt, CONSTRUCTION ENGINEERING MANAGER) ondansetron (ZOFRAN-ODT) disintegrating tablet 4 mg(Linked Group 1) 4 mg Every 8 hours PRN, oral, nausea, vomiting, Starting on Wed10/29/23 at 1608, 1st line. If inadequate response within 60 minutes, proceed to next-line agent for same PRN reason or contact provider if no further options ordered. ondansetron PF (ZOFRAN) injection 4 mg(Linked Group 1) 4 mg Every 8 hours PRN, intravenous, nausea, vomiting, Starting on Wed10/29/23 at 1608, Give IV if patient is unable to take orally. 1st line If inadequate response within 60 minutes, proceed to next-line agent for same PRN reason or contact provider if no further options ordered. For IV push, give over 2 - 5 minutes. oxyCODONE (ROXICODONE) immediate release tablet 10 mg 10 mg Every 6 hours PRN, oral, severe pain (7-10), Starting on Wed10/29/23 at 1617, Look-alike/Sound-alike medication oxyCODONE (ROXICODONE) immediate release tablet 5 mg 5 mg Every 6 hours PRN, oral, moderate pain (4-6), Starting on Wed10/29/23 at 1617, Look-alike/Sound-alike medication Linked Groups Order Group 1: ondansetron (ZOFRAN-ODT) disintegrating tablet 4 mgJump to med 4 mg Every 8 hours PRN, oral, nausea, vomiting, Starting on Wed10/29/23 at 1608, 1st line. If inadequate response within 60 minutes, proceed to next-line agent for same PRN reason or contact provider if no further options ordered. Or ondansetron PF (ZOFRAN) injection 4 mgJump to med 4 mg Every 8 hours PRN, intravenous, nausea, vomiting, Starting on Wed10/29/23 at 1608, Give IV if patient is unable to take orally. 1st line If inadequate response within 60 minutes, proceed to next-line agent for same PRN reason or contact provider if no further options ordered. For IV push, give over 2 - 5 minutes. documented in this encounter
--- OUTSIDE RECORDS SUMMARY | 2024-02-23 18:54 | XMS_ITS | Encounter Summary ---
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 Role Phone Pcp, No Primary Care Provider Unavailabl e Ceci Greene LPN Unavailable Unavailable Reason for Visit * Reason Comments TCM Call Encounter Details Date Type Department Care Team (Late st Contact Info) Description 02/08/2024 Patient Outreach POPULATION [address] [address] Ceci Greene LPN VALUE-BASED [place] [address] TCM Call Social History Tobacco Use Types Packs/Day Years Used Date Smoking Tobacco: Every Day Cigarettes Smokeless Tobacco: Never Alcohol Use Standard Drinks/Week Comments No 0 (1 standard drink = 0.6 oz pur e alcohol) Humiliation, Afraid, Rape, and Kick questionnair e Answer Date Recorded Within the last year, have y ou been afraid of your partner or ex-partner? No 06/16/2023 Within the last year, have y ou been humiliated or emotionally abused in other ways by your partner or ex-partner? No Within the last year, have y ou been kicked, hit, slapped, or otherwise physically hurt by your partner or ex-partner? No 06/16/2023 Within the last year, have y ou been raped or forced to have any kind of sexual activity by your partner or ex-partner? No 06/16/2023 Overall Financial Resource Strain (CARDIA) Answe r Date Recorded How hard is it for you to pa y for the very basics like food, housing, medical care, and heating? Not hard at all 03/24/2023 Hunger Vital Sign Answer Date Recorded Within the past 12 months, y ou worried that your food would run out before you got the money to buy more. Never true 02/01/20 24 Within the past 12 months, t he food you bought just didn't last and you didn't have money to get more. Never true 02/01/2024 PRAPARE - Transportation Answer Date Re corded In the past 12 months, has l ack of transportation kept you from medical appointments or from getting medications? No 07/2023 In the past 12 months, has l ack of transportation kept you from meetings, work, or from getting things needed for daily living? No 02/01/2024 Housing Stability Vital Sign Answer Raf e Recorded In the last 12 months, was t here a time when you were not able to pay the mortgage or rent on time? No 02/01/2024 In the last 12 months, how many places have you lived? 2 02/01/2024 In the last 12 months, was t here a time when you did not have a steady place to sleep or slept in a jail (including now)? No 02/01/2024 CAGE ASSESSMENT Answer Date Recorded Cage unable to access Not on file 02/05/2023 Cage max number of drinks Not on file 2022 Cage Beverages a week Not on file 02/05/2023 Have you ever felt you should CUT down on your d rinking? 0 02/05/2023 Have you been ANNOYED by people criticizing your drinking? 0 02/05/2023 Have you felt GUILTY about your drinking? 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 0 02/05/2023 CAGE Questionnaire Score 0 023 Utilities Answer Date Recorded In the past 12 months has th e electric, gas, oil, or water company threatened to shut off services in your home? No 02/01/2024 Sex and Gender Information Value Date Recorded Sex Assigned at Not on file Legal Sex Male 8:15 PM EDT Gender Identity Not on file Sexual Orientation Not on file documented as of this encounter Miscellaneous Notes * Progress Notes - Ceci Greene LPN - 02/08/2024 11:16 AM EST Admit Date: 01/30/24 Discharge Date: 02/05/24 Hospital Service: Cardiology Discharge Diagnosis: Heart Failure ([facility]) 02/08/2024 TCM call # 2 Patient Reached: No Outcome: Unable to reach this patient for a [facility] nurses call. There was no voice mail option to leave a message. Action: N/A Medication changes: Start taking:New Atorvastatin 80 mg every night Hydralazine 25 mg three times daily Isosorbide Dinitrate 10 mg three times daily Semaglutide 0.25 or 0.5 mg/DOS 2 mg/3 ml solution pen injector. Inject 0.25 once a week for 28 daysTHEN 0.5 mg once a week. Changes: Bumetanide 2 mg once daily (Change) If you gain more than 3 pounds in 1 day or 5 pounds in 1 week take an extra dose of 2 mg as needed Insulin Glargine inject 5 units every night Stop Taking: Clopidogrel 75 mg Losartan 25 mg [facility] appointment: 02/11/24 @ 11:[address] Ayo Joyner Items to address at [facility]: N/A documented in this encounter Plan of Treatment Upcoming Encounters Date Type Department Care Team ([facility] st Contact Info) Description 03/07/2024 1:40 PM EST Office Visit [facility] [place] [address], [address] [place] [id number] Naeem Blunt MD [address] [place] [address] documented as of this encounter Visit Diagnoses Not on filedocumented in this encounter Additional Health Concerns Infection Onset Date Last Indicated Resolved Time MRSA Comment:Positive blood culture 03/03/2019 01/30/2024 Assessment Noted Time A Body Mass Index follow-up plan has been documented for the patient 02/05/2024 9:34 AM EST documented as of this encounter Care Teams Restaurant Server Relationship Specialty Start Date End Date Pcp, No [address] [place] [address] PCP - General Family Medicine 01/30/24 Ceci Greene LPN VAL[employer] [place] [address] TCM Nurse 02/07/24 03/08/24 documented as of this encounter
--- OUTSIDE RECORDS SUMMARY | 2024-02-23 18:54 | XMS_ITS | Encounter Summary ---
Author Organization Healthcare Address [address] [place] [address] Care Team Providers Care Supervisor Ticket Sales Name Role Phone Pcp, No Primary Care Provider Unavailabl e Ceci Greene LPN Unavailable Unavailable Reason for Visit * Reason Comments TCM Call Encounter Details Date Type Department Care Team (Late st Contact Info) Description 02/07/2024 Patient Outreach POPULATION [address] [phone] Ceci Greene LPN VAL[employer] [place] [address] TCM Call Social History Tobacco Use Types [...] place to sleep or slept in a [place] (including now)? 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) to steady your nerves or to get [...] Progress Notes - Ceci Greene LPN - 02/07/2024 10:40 AM EST Admit Date: 01/30/24 Discharge Date: 02/05/24 Hospital Service: Cardiology Discharge Diagnosis: Heart Failure ([facility]) 02/07/2024 TCM call # 1 Patient Reached: No Outcome: Unable to reach [...] Upcoming Encounters Date Type Department Care Team ([facility] st Contact Info) Description 03/07/2024 1:40 PM EST Office Visit [facility] [place] [address], [address] [place] [id number] Naeem Blunt MD [address] [place] [address] documented as of this encounter Visit Diagnoses Not on filedocumented in this encounter Additional Health Concerns Infection Onset Date Last Indicated Resolved Time MRSA Comment:Positive blood culture 03/03/2019 01/30/2024 Assessment Noted Time A Body Mass Index follow-up plan has been documented for the patient 02/05/2024 9:34 AM EST documented as of this encounter Care Teams Supervisor Ticket Sales Relationship Specialty Start Date End Date Pcp, No [address] [place] [address] PCP - General Family Medicine 01/30/24 Ceci Greene LPN VAL[employer] [place] [address] TCM Nurse 02/07/24 03/08/24 documented as of this encounter
--- OUTSIDE RECORDS SUMMARY | 2024-02-23 18:54 | XMS_ITS | Encounter Summary ---
Author Organization Healthcare Address [address] [place] [address] Care Team Providers Care Iron Caster Name Role Phone Pcp, No Primary Care Provider Unavailabl e Ceci Greene LPN Unavailable Unavailable Reason for Visit * Reason Comments TCM Call Encounter Details Date Type Department Care Team (Late st Contact Info) Description 02/09/2024 Patient Outreach POPULATION [address] [phone] Ceci Greene LPN VALUE-[employer]ED [place] [address] TCM Call Social History Tobacco Use Types [...] place to sleep or slept in a senior living (including now)? 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 Patient was called on three separate occasions and was not able to connect. Action: N/A Medication changes: Start taking:New Atorvastatin [...] Upcoming Encounters Date Type Department Care Team (Late st Contact Info) Description 03/07/2024 1:40 PM EST Office Visit [facility] [place] [address], [address] [place] [id number] Naeem Blunt MD [address] [place] [address] documented as of this encounter Visit Diagnoses Not on filedocumented in this encounter Additional Health Concerns Infection Onset Date Last Indicated Resolved Time MRSA Comment:Positive blood culture 03/03/2019 01/30/2024 Assessment Noted Time A Body Mass Index follow-up plan has been documented for the patient 02/05/2024 9:34 AM EST documented as of this encounter Care Teams Iron Caster Relationship Specialty Start Date End Date Pcp, No [address] [place] [address] PCP - General Family Medicine 01/30/24 Ceci Greene LPN VALUE-[employer]ED [place] [address] TCM Nurse 02/07/24 03/08/24 documented as of this encounter
--- OUTSIDE RECORDS SUMMARY | 2024-02-23 18:54 | XMS_ITS | Encounter Summary ---
Author Organization [facility] Address [address] [place] [address] Care Team Providers Care Senior User Experience Architect Name Role Phone Pcp, No Primary Care Provider Ceci Pereira LPN Unavailable Unavailable Encounter Details Date Type Department Care Team (Latest Contact Info) Description 02/20/2024 Travel Social History Tobacco Use Types Packs/Day [...] money to buy more. Never true 02/01/20 Within the past 12 months, t he [...] place to sleep or slept in a [facility] (including now)? 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 0 02/05/2023 CAGE Questionnaire Score 0 023 Utilities Answer Date Recorded In the past 12 months has th e [employer], gas, oil, or water company threatened to shut off services in your home? No 02/01/2024 Sex and Gender Information Value Date Recorded Sex Assigned at Not on file Legal Sex Male 8:15 PM EDT Gender Identity Not on file Sexual Orientation Not on file documented as of this encounter Plan of Treatment Upcoming Encounters Date Type Department Care Team (Late st Contact Info) Description 03/07/2024 1:40 PM EST Office Visit [facility] [place] [address], [address] [place] [address] Naeem Blunt MD [address] [place] [address] documented as of this encounter Visit Diagnoses Not on filedocumented in this encounter Additional Health Concerns Infection Onset Date Last Indicated Resolved Time MRSA Comment:Positive blood culture 03/03/2019 01/30/2024 Assessment Noted Time A Body Mass Index follow-up plan has been documented for the patient 02/05/2024 9:34 AM EST documented as of this encounter Care Teams Senior User Experience Architect Relationship Specialty Start Date End Date Pcp, Ebony [address] [place] [address] PCP - General Family Medicine 01/30/24 Ceci Greene LPN [employer] [place] [address] TCM Nurse 02/07/24 03/08/24 documented as of this encounter
--- OUTSIDE RECORDS SUMMARY | 2024-02-23 18:54 | XMS_ITS | Clinical Summary ---
Author Organization [facility] Address [address] [place] [address] Care Team Providers Care E Mail System Administrator Name Role Phone Pcp, No Primary Care Provider Ceci Pereira LPN Unavailable Unavailable Allergies Active Allergy Reactions Criticality Noted Date Comments Penicillins Nausea,Rash Medium 03/02/2019 Rash as a child. Has received ceftriaxone in past without reaction Medications nitroglycerin (Nitrostat) 0.[address] 1 tablet (0.4 mg) under the tongue every 5 (five) minutes if needed for chest pain. Active albuterol 108 (90 Base) MCG/ACT inhaler Inhale 2 puffs 4 (four) times a day if needed for wheezing. Active metoprolol succinate XL (Toprol-XL) 50 MG 24 hr tablet Take 1 tablet (50 mg) by mouth 1 (one) time each day. Do not crush or chew. 90 tablet 1 12/25/19 24 Active dapagliflozin (Farxiga) 10 MG tablet Take 1 tablet (10 mg) by mouth 1 (one) time each day. 90 tablet 1 12/25/19 24 Active ocular lubricant (Artificial Tears) 0.2-0.2-1 % solution ophthalmic solution Administer 1 drop into both eyes if needed for irritation. Active hydrALAZINE (Apresoline) 25 MG tablet Take 1 tablet (25 mg) by mouth 3 (three) times a day. 270 tablet 3 02/05/20 24 025 Active isosorbide dinitrate (Isordil) 10 MG tablet Take 1 tablet (10 mg) by mouth 3 (three) times a day. 270 tablet 3 02/05/20 24 025 Active insulin glargine (Lantus SoloStar, Basaglar) 100 UNIT/ML injection pen Inject 5 Units under the skin every night. 15 mL 3 02/05/20 24 Active Insulin Pen Needle (Pen [place]) 32G X 4 MM misc Use up to 1 time(s) daily to administer insulin with insulin pen. 100 each 3 02/05/20 Active mometasone-for moterol (Dulera 100) 100-5 MCG/ACT inhaler Inhale 2 puffs 2 (two) times a day. Rinse mouth with water after use to reduce aftertaste and incidence of candidiasis. Do not swallow. 39 g 3 02/05/20 24 025 Active Umeclidinium [place] (Incruse Ellipta) 62.5 MCG/ACT aerosol powder Inhale 1 Inhalation 1 (one) time each day. 90 each 3 02/05/20 24 025 Active Lancets misc Use up to 4 time(s) daily to check blood glucose 100 each 3 02/05/20 24 Active glucose blood (OneTouch Ultra Test) test strip Use up to 4 time(s) daily to check blood glucose 100 each 12 02/05/20 24 Active Blood Glucose Monitoring Suppl (ONE TOUCH ULTRA 2) w/Device kit device kit Use as instructed to check blood glucose 1 kit 02/05/20 Active Semaglutide,0. 25 or 0.5MG/DOS, 2 MG/3ML solution pen-injector Inject 0.25 mg under the skin 1 (one) time per week for 28 days, THEN 0.5 mg 1 (one) time per week. 3 mL 11 02/05/20 24 025 Active bumetanide (Bumex) 2 MG tabletIndicati ons:Heart Failure Take 1 tablet (2 mg) by mouth 1 (one) time each day. If you gain more than 3 pounds in 1 day or 5 pounds in 1 week, take one extra dose of 2mg bumex as needed. 135 tablet 1 02/05/20 Active atorvastatin (Lipitor) 80 MG tablet Take 1 tablet (80 mg) by mouth every night. 90 tablet 3 02/05/20 Active aspirin 81 MG chewable tablet Chew 1 tablet (81 mg) 1 (one) time each day. 30 tablet 11 02/13/20 23 Umeclidinium [place] (Incruse Ellipta) 62.5 MCG/ACT aerosol powder Inhale 1 Inhalation 1 (one) time each day. 7 each 1 02/13/20 23 Discontinued gabapentin (Neurontin) 600 MG tablet Take 1 tablet (600 mg) by mouth 3 (three) times a day. Discontinued(En tered in Error) mometasone-for moterol (Dulera 100) 100-5 MCG/ACT inhaler Inhale 2 puffs 2 (two) times a day. Rinse mouth with water after use to reduce aftertaste and incidence of candidiasis. Do not swallow. 13 g 2 06/17/19 24 Discontinued insulin detemir (Levemir) 100 UNIT/ML injection pen Inject 7-8 Units under the skin every night. 06/13/19 Discontinued(En tered in Error) bumetanide (Bumex) 2 MG tablet Take 1 tablet (2 mg) by mouth 1 (one) time each day. 90 tablet 1 12/25/19 24 Discontinued clopidogrel (Plavix) 75 MG tablet Take 1 tablet (75 mg) by mouth 1 (one) time each day. 90 tablet 1 12/25/19 24 Discontinued(St op Taking at Discharge) losartan (Cozaar) 25 MG tablet Take 1 tablet (25 mg) by mouth 1 (one) time each day. 90 tablet 1 12/25/19 24 Discontinued(St op Taking at Discharge) insulin glargine (Lantus SoloStar, Basaglar) 100 UNIT/ML injection pen Inject 12 Units under the skin every night. Discontinued Active Problems Problem Noted Date Diagnosed Date Heart failure 01/30/2024 Acute decompensated heart failure 12/17/2023 Coronary artery disease invo lving [place] coronary artery of [place] heart without angina pectoris 09/29/2023 Cardiomyopathy, ischemic 09/29/2023 Follow-up for acute coronary syndrome 09/29/2023 Hyperlipidemia 04/06/2023 Acute on chronic congestive heart failure 2022 HFrEF (heart failure with reduced ejection fract ion) 03/23/2023 Acute respiratory failure with hypoxia Above knee amputation of left lower extremity Impaired mobility 03/11/2022 Hypertension 02/07/2016 Type 2 diabetes mellitus 02/07/2016 Shortness of breath Encounters Date Type Department Care Team Description 02/20/2024 2:58 AM EST - 02/20/2024 6:35 AM EST Emergency [facility] [address] [place] [phone] Jakob Phipps MD Anxiety about health (Primary Dx); COPD without exacerbation (CMS/HCC); Uncontrolled type 2 diabetes mellitus with hyperglycemia (CMS/HCC) Discharge Disposition: Home or Self Care 02/20/2024 Travel 02/09/2024 [place] [phone] Ceci Greene LPN TCM Call 02/08/2024 [place] [address] Ceci Greene MACHINE SHOP INSPECTOR TCM Call 02/07/2024 Patient Outreach POPULATION [address] [phone] Ceci Greene MACHINE SHOP INSPECTOR TCM Call 02/01/2024 Travel 01/30/2024 8:34 AM EST - 02/05/2024 10:23 AM EST Hospital Encounter [facility] [address] [place] [id number] Carmencita Slaughter MD McClure, Rick R, MD Sorour, Nouran A, MD Acute on chronic systolic congestive heart failure (CMS/HCC) (Primary Dx); Acute decompensated heart failure (CMS/HCC) Discharge Disposition: Home or Self Care 01/30/2024 Travel 12/28/2023 Telephone [facility]patient [address] [place] [phone] Laura Singleton 12/20/2023 Travel 12/17/2023 Travel 12/16/2023 5:50 PM EDT - 12/25/2023 2:06 PM EDT Hospital Encounter [facility] Inpatient [address] [place] [phone] Carmencita Slaughter MD Prabhu, MD Srinivasan Apodaca John R, MD Sheets, Jonny Gamboa MD Acute on chronic systolic congestive heart failure (CMS/HCC) (Primary Dx); Acute decompensated heart failure ([facility]/HCC) Discharge Disposition: Home or Self Care 12/16/2023 Orders Only External Location [address] [place] [phone] Provider, External 12/16/2023 Travel from Last 3 Months Immunizations Name Administration Dates Next Due Hep A, Adult 07/07/2018 Influenza, injectable, quadrivalent, preservativ e free 03/08/2020,03/02/2017 Influenza, seasonal, injectable, preservative fr ee 04/13/2015 Pneumococcal Polysaccharide PPV23 04/13/2015 Family History 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 Relation Name Comments Conversions - Other Father Heart tr ouble Hyperlipidemia Father Hypertension Father Other cancer Father Conversions - Other Mother Heart tr ouble Diabetes Mother Hypertension Mother Obesity Mother Relation Name Status Comments Father Mother Social History Tobacco Use Types Packs/Day Years Used Date Smoking Tobacco: Every Day Cigarettes Smokeless Tobacco: Never Tobacco Cessation:Ready to Q uit: Not Asked; Counseling Given: Not Answered Alcohol Use Standard Drinks/Week Comments No 0 [...] place to sleep or slept in a correction (including now)? No 02/01/2024 CAGE ASSESSMENT Answer [...] drink first t erin in the morning (E[employer]OV[employer]VOCATE) to steady your nerves or to get [...] Sign Reading Time Taken Comments Blood Pressure 134/97 02/20/2024 6:00 AM EST Pulse 85 02/20/2024 6:00 AM EST Temperature 36.8 ??C (98.2 ??F) 02/20/2024 6:00 AM ES T Respiratory Rate 23 02/20/2024 6:00 AM EST Oxygen Saturation 100% 02/20/2024 6:00 AM EST Inhaled Oxygen Concentration - - Weight 85.6 kg (188 lb 11.4 oz) 02/01/2024 5:00 AM EST Height 182.9 cm (6' 0.01 ) 01/31/2024 1 1:16 AM EST Body Mass Index 25.59 01/31/2024 11:16 AM EST Plan of Treatment Upcoming Encounters Date Type Department Care Team (Late st Contact Info) Description 03/07/2024 1:40 PM EST Office Visit [facility] [place] [address] [facility], [address] [place] [address] Naeem Blunt MD [address] [place] [address] Health Maintenance Due Date Last Done Comments [facility]-Depression Screening 1965 [facility]-Medicare Annual Wellness (AWV) 1965 [facility]-Infant/Child/Adol SDOH Screenings 1965 Diabetes: Dental Exam 05/29/1977 [facility]-DTaP,Tdap,and Td Vaccines (1 - Tdap) 05/29/1986 [facility]-Hepatitis B Vaccines (1 of 3 - 19+ 3-dose series) 05/29/1986 04/05/2020 [facility]-Zoster Vaccines (1 of 2) 05/29/1986 CT Colonography 05/29/2012 Colonoscopy 05/29/2012 FIT-DNA 05/29/2012 FIT 05/29/2012 FOBT 05/29/2012 Sigmoidoscopy 05/29/2012 [facility]-Colorectal Cancer Screening 05/29/2012 [facility]-Pneumococcal Vaccine: Pediatrics (0 to 5 Years) and At-Risk Patients (6 to 64 Years) (2 of 2 - PCV) 04/13/2016 04/13/2015 [facility]-Hepatitis A Vaccines (2 of 2 - Risk 2-dose series) 01/06/2019 07/07/2018 [id number] Vaccine (2 - Aston risk series) 09/07/2020 08/10/2020 [facility]-Influenza Vaccine (#1) 11/28/202303/08, 03/02/2017, 04/13/2015 [facility]- SDOH Screenings 12/17/2023 [facility]-Adult SDOH Screenings 12/17/2023 06/16/2023 [facility]-Diabetes: Hemoglobin A1C 03/17/2024, 06/16/2023, 02/03/2023, Additional history exists [facility]-RSV Vaccine: 60+ Years or (1 - 1-dose 75+ series) 05/29/2042 [facility]-HIV Screening Completed 02/03/2023, , 03/08/2020 [facility]-Hepatitis C Screening Completed 02/03/2023, 07/2018 [facility]-Obesity Intervention Completed 024, 12/16/2023, 06/15/2023, Additional history exists [facility]-HIB Vaccines Aged Out No longer e ligible based on patient's age to complete this topic [facility]-HPV Vaccines Aged Out No longer e ligible based on patient's age to complete this topic [facility]-IPV Vaccines Aged Out No longer e ligible based on patient's age to complete this topic [facility]-Rotavirus Vaccines Aged Out No lo nger eligible based on patient's age to complete this topic Procedures Procedure Name Priority Date/Time Associated Diagnosis Comments EXTRA TUBE RED TOP Routine 02/20/2024 4: 29 AM EST EXTRA TUBES Routine 02/20/2024 4:29 AM EST BASIC METABOLIC PANEL, PLASMA STAT 02/20/2024 4:15 AM EST CBC WITH AUTO DIFFERENTIAL STAT 02/20/2024 4:15 AM EST BLOOD GAS PANEL, VENOUS STAT 02/20/2024 4:15 AM EST ECG ADULT STAT 02/20/2024 3:15 AM EST POCT GLUCOSE METER UNSOLICITED RESULTS Routine 02/05/2024 8:27 AM EST CBC W/O DIFFERENTIAL Routine 02/05/2024 3:55 AM EST MAGNESIUM, PLASMA Routine 02/05/2024 3:5 5 AM EST BASIC METABOLIC PANEL, PLASMA Routine 02/05/2024 3:55 AM EST POCT GLUCOSE METER UNSOLICITED RESULTS Routine 02/04/2024 8:26 PM EST POCT GLUCOSE METER UNSOLICITED RESULTS Routine 02/04/2024 5:37 PM EST POCT GLUCOSE METER UNSOLICITED RESULTS Routine 02/04/2024 1:07 PM EST POCT GLUCOSE METER UNSOLICITED RESULTS Routine 02/04/2024 8:58 AM EST NON-INVASIVE VENTILATION Routine 02/04/2024 8:00 AM EST EXTRA TUBE LAVENDER TOP Routine 02/04/2024 3:47 AM EST EXTRA TUBES Routine 02/04/2024 3:47 AM EST BASIC METABOLIC PANEL, PLASMA Routine 02/04/2024 3:47 AM EST POCT GLUCOSE METER UNSOLICITED RESULTS Routine 02/03/2024 8:58 PM EST NON-INVASIVE VENTILATION Routine 02/03/2024 8:00 PM EST POCT GLUCOSE METER UNSOLICITED RESULTS Routine 02/03/2024 5:59 PM EST POCT GLUCOSE METER UNSOLICITED RESULTS Routine 02/03/2024 12:56 PM EST POCT GLUCOSE METER UNSOLICITED RESULTS Routine 02/03/2024 8:55 AM EST NON-INVASIVE VENTILATION Routine 02/03/2024 8:00 AM EST TOTAL BILIRUBIN, PLASMA Add-On 02/03/2024 2:26 AM EST ALANINE AMINOTRANSFERASE, PLASMA Add-On 02/03/2024 2:26 AM EST ALKALINE PHOSPHATASE, PLASMA Add-On 02/03/2024 2:26 AM EST ASPARTATE AMINOTRANSFERASE, PLASMA Add-On 02/03/2024 2:26 AM EST EXTRA TUBE LAVENDER TOP Routine 02/03/2024 2:26 AM EST EXTRA TUBES Routine 02/03/2024 2:26 AM EST BASIC METABOLIC PANEL, PLASMA Routine 02/03/2024 2:26 AM EST POCT GLUCOSE METER UNSOLICITED RESULTS Routine 02/02/2024 8:35 PM EST NON-INVASIVE VENTILATION Routine 02/02/2024 8:00 PM EST POCT GLUCOSE METER UNSOLICITED RESULTS Routine 02/02/2024 5:39 PM EST POCT GLUCOSE METER UNSOLICITED RESULTS Routine 02/02/2024 12:10 PM EST POCT GLUCOSE METER UNSOLICITED RESULTS Routine 02/02/2024 8:33 AM EST NON-INVASIVE VENTILATION Routine 02/02/2024 8:00 AM EST POCT GLUCOSE METER UNSOLICITED RESULTS Routine 02/02/2024 4:16 AM EST MAGNESIUM, PLASMA Add-On 02/02/2024 1:2 1 AM EST BASIC METABOLIC PANEL, PLASMA Routine 02/02/2024 1:21 AM EST NON-INVASIVE VENTILATION Routine 02/01/2024 8:51 PM EST NON-INVASIVE VENTILATION Routine 02/01/2024 8:51 PM EST NON-INVASIVE VENTILATION Routine 02/01/2024 8:51 PM EST POCT GLUCOSE METER UNSOLICITED RESULTS Routine 02/01/2024 8:46 PM EST POCT GLUCOSE METER UNSOLICITED RESULTS Routine 02/01/2024 4:49 PM EST MAGNESIUM, PLASMA Add-On 02/01/2024 12:24 PM EST BASIC METABOLIC PANEL, PLASMA Routine 02/01/2024 12:24 PM EST POCT GLUCOSE METER UNSOLICITED RESULTS Routine 02/01/2024 12:18 PM EST POCT GLUCOSE METER UNSOLICITED RESULTS Routine 02/01/2024 12:03 PM EST POCT GLUCOSE METER UNSOLICITED RESULTS Routine 02/01/2024 8:27 AM EST VAS US VENOUS DUPLEX LOWER EXTREMITY UNILATERAL Routine 02/01/2024 8:03 AM EST COMPREHENSIVE METABOLIC PANEL, PLASMA Routine 02/01/2024 4:55 AM EST POCT GLUCOSE METER UNSOLICITED RESULTS Routine 01/31/2024 8:31 PM EST POCT GLUCOSE METER UNSOLICITED RESULTS Routine 01/31/2024 5:29 PM EST BASIC METABOLIC PANEL, PLASMA Routine 01/31/2024 4:44 PM EST WOUND OSTOMY EVAL AND TREAT Routine 01/31/2024 3:44 PM EST POCT GLUCOSE METER UNSOLICITED RESULTS Routine 01/31/2024 12:19 PM EST POCT GLUCOSE METER UNSOLICITED RESULTS Routine 01/31/2024 8:30 AM EST BASIC METABOLIC PANEL, PLASMA STAT 01/31/2024 7:45 AM EST POCT GLUCOSE METER UNSOLICITED RESULTS Routine 01/31/2024 3:27 AM EST POCT GLUCOSE METER UNSOLICITED RESULTS Routine 01/30/2024 7:52 PM EST COMPREHENSIVE METABOLIC PANEL, PLASMA Routine 01/30/2024 7:51 PM EST MAGNESIUM, PLASMA Routine 01/30/2024 7:5 1 PM EST POCT GLUCOSE METER UNSOLICITED RESULTS Routine 01/30/2024 5:42 PM EST TROPONIN T, HIGH SENSITIVITY, 2 HOUR, PLASMA Timed 01/30/2024 1:20 PM EST POCT GLUCOSE METER UNSOLICITED RESULTS Routine 01/30/2024 1:14 PM EST MULTI DRUG RESISTANCE TEST Routine 01/30/2024 12:32 PM EST POTASSIUM, PLASMA STAT 01/30/2024 10:32 AM EST TROPONIN T, HIGH SENSITIVITY, 0 HOUR, PLASMA, REFLEX TO 2 HOUR STAT 01/30/2024 10:32 AM EST EXTRA TUBE LIGHT GREEN TOP Routine 01/30/2024 9:55 AM EST EXTRA TUBES Routine 01/30/2024 9:55 AM EST POTASSIUM, PLASMA STAT 01/30/2024 9:5 5 AM EST XR CHEST 1 VIEW STAT 01/30/2024 9:20 AM EST N-TERMINAL PROBNP, PLASMA STAT 01/30/2024 9:13 AM EST COMPREHENSIVE METABOLIC PANEL, PLASMA STAT 01/30/2024 9:13 AM EST CBC WITH AUTO DIFFERENTIAL STAT 01/30/2024 9:13 AM EST SARS-COV-2, FLU A, FLU B, AND RSV - RAPID STAT 01/30/2024 9:13 AM EST ECG ADULT STAT 01/30/2024 9:05 AM EST POCT GLUCOSE METER UNSOLICITED RESULTS Routine 01/30/2024 8:43 AM EST POCT GLUCOSE METER UNSOLICITED RESULTS Routine 12/25/2023 9:10 AM EDT CBC WITH AUTO DIFFERENTIAL Pending Discharge 12/25/2023 3:08 AM EDT PHOSPHORUS, PLASMA Pending Discharge 12/25/2023 3:08 AM EDT MAGNESIUM, PLASMA Pending Discharge 12/25/2023 3:08 AM EDT BASIC METABOLIC PANEL, PLASMA Pending Discharge 12/25/2023 3:08 AM EDT POCT GLUCOSE METER UNSOLICITED RESULTS Routine 12/24/2023 7:22 PM EDT POCT GLUCOSE METER UNSOLICITED RESULTS Routine 12/24/2023 5:50 PM EDT POCT GLUCOSE METER UNSOLICITED RESULTS Routine 12/24/2023 12:35 PM EDT POCT GLUCOSE METER UNSOLICITED RESULTS Routine 12/24/2023 8:45 AM EDT OXYGEN THERAPY Routine 12/24/2023 8:00 AM EDT MORPHOLOGY STAT 12/24/2023 4:31 AM EDT MANUAL DIFFERENTIAL STAT 12/24/2023 4 :31 AM EDT CBC WITH AUTO DIFFERENTIAL Pending Discharge 12/24/2023 4:31 AM EDT PHOSPHORUS, PLASMA Pending Discharge 12/24/2023 4:31 AM EDT MAGNESIUM, PLASMA Pending Discharge 12/24/2023 4:31 AM EDT BASIC METABOLIC PANEL, PLASMA Pending Discharge 12/24/2023 4:31 AM EDT OXYGEN THERAPY Routine 12/23/2023 8:00 PM EDT POCT GLUCOSE METER UNSOLICITED RESULTS Routine 12/23/2023 7:28 PM EDT POCT GLUCOSE METER UNSOLICITED RESULTS Routine 12/23/2023 5:45 PM EDT POCT GLUCOSE METER UNSOLICITED RESULTS Routine 12/23/2023 12:50 PM EDT POCT GLUCOSE METER UNSOLICITED RESULTS Routine 12/23/2023 8:48 AM EDT OXYGEN THERAPY Routine 12/23/2023 8:00 AM EDT N-TERMINAL PROBNP, PLASMA Pending Discharge 12/23/2023 4:10 AM EDT CBC WITH AUTO DIFFERENTIAL Pending Discharge 12/23/2023 4:10 AM EDT PHOSPHORUS, PLASMA Pending Discharge 12/23/2023 4:10 AM EDT MAGNESIUM, PLASMA Pending Discharge 12/23/2023 4:10 AM EDT BASIC METABOLIC PANEL, PLASMA Pending Discharge 12/23/2023 4:10 AM EDT OXYGEN THERAPY Routine 12/22/2023 8:00 PM EDT POCT GLUCOSE METER UNSOLICITED RESULTS Routine 12/22/2023 7:45 PM EDT POCT GLUCOSE METER UNSOLICITED RESULTS Routine 12/22/2023 5:41 PM EDT POCT GLUCOSE METER UNSOLICITED RESULTS Routine 12/22/2023 12:40 PM EDT POCT GLUCOSE METER UNSOLICITED RESULTS Routine 12/22/2023 8:45 AM EDT OXYGEN THERAPY Routine 12/22/2023 8:00 AM EDT CBC WITH AUTO DIFFERENTIAL Pending Discharge 12/22/2023 3:33 AM EDT PHOSPHORUS, PLASMA Pending Discharge 12/22/2023 3:33 AM EDT MAGNESIUM, PLASMA Pending Discharge 12/22/2023 3:33 AM EDT BASIC METABOLIC PANEL, PLASMA Pending Discharge 12/22/2023 3:33 AM EDT OXYGEN THERAPY Routine 12/21/2023 8:00 PM EDT POCT GLUCOSE METER UNSOLICITED RESULTS Routine 12/21/2023 8:00 PM EDT POCT GLUCOSE METER UNSOLICITED RESULTS Routine 12/21/2023 5:26 PM EDT POCT GLUCOSE METER UNSOLICITED RESULTS Routine 12/21/2023 12:10 PM EDT POCT GLUCOSE METER UNSOLICITED RESULTS Routine 12/21/2023 8:11 AM EDT OXYGEN THERAPY Routine 12/21/2023 8:00 AM EDT CBC WITH AUTO DIFFERENTIAL Routine 12/21/2023 3:46 AM EDT PHOSPHORUS, PLASMA Routine 12/21/2023 3: 46 AM EDT MAGNESIUM, PLASMA Routine 12/21/2023 3:4 6 AM EDT BASIC METABOLIC PANEL, PLASMA Routine 12/21/2023 3:46 AM EDT POCT GLUCOSE METER UNSOLICITED RESULTS Routine 12/20/2023 8:09 PM EDT OXYGEN THERAPY Routine 12/20/2023 8:00 PM EDT POCT GLUCOSE METER UNSOLICITED RESULTS Routine 12/20/2023 5:55 PM EDT WOUND OSTOMY EVAL AND TREAT Routine 12/20/2023 3:00 PM EDT POCT GLUCOSE METER UNSOLICITED RESULTS Routine 12/20/2023 12:13 PM EDT ECHO, ADULT TRANSTHORACIC COMPLETE Routine 12/20/2023 9:34 AM EDT POCT GLUCOSE METER UNSOLICITED RESULTS Routine 12/20/2023 8:19 AM EDT OXYGEN THERAPY Routine 12/20/2023 8:00 AM EDT CBC WITH AUTO DIFFERENTIAL Routine 12/20/2023 3:43 AM EDT PHOSPHORUS, PLASMA Routine 12/20/2023 3: 43 AM EDT MAGNESIUM, PLASMA Routine 12/20/2023 3:4 3 AM EDT BASIC METABOLIC PANEL, PLASMA Routine 12/20/2023 3:43 AM EDT OXYGEN THERAPY Routine 12/19/2023 8:00 PM EDT POCT GLUCOSE METER UNSOLICITED RESULTS Routine 12/19/2023 7:21 PM EDT POCT GLUCOSE METER UNSOLICITED RESULTS Routine 12/19/2023 5:04 PM EDT BASIC METABOLIC PANEL, PLASMA Routine 12/19/2023 1:06 PM EDT POCT GLUCOSE METER UNSOLICITED RESULTS Routine 12/19/2023 12:34 PM EDT POCT GLUCOSE METER UNSOLICITED RESULTS Routine 12/19/2023 8:49 AM EDT OXYGEN THERAPY Routine 12/19/2023 8:00 AM EDT CBC WITH AUTO DIFFERENTIAL Routine 12/19/2023 4:26 AM EDT PHOSPHORUS, PLASMA Routine 12/19/2023 4: 26 AM EDT MAGNESIUM, PLASMA Routine 12/19/2023 4:2 6 AM EDT BASIC METABOLIC PANEL, PLASMA Routine 12/19/2023 4:26 AM EDT POCT GLUCOSE METER UNSOLICITED RESULTS Routine 12/18/2023 8:42 PM EDT OXYGEN THERAPY Routine 12/18/2023 8:00 PM EDT POCT GLUCOSE METER UNSOLICITED RESULTS Routine 12/18/2023 5:34 PM EDT MAGNESIUM, PLASMA Routine 12/18/2023 3:0 6 PM EDT BASIC METABOLIC PANEL, PLASMA Routine 12/18/2023 3:06 PM EDT ECG ADULT STAT 12/18/2023 2:08 PM EDT POCT GLUCOSE METER UNSOLICITED RESULTS Routine 12/18/2023 12:32 PM EDT POCT GLUCOSE METER UNSOLICITED RESULTS Routine 12/18/2023 8:45 AM EDT OXYGEN THERAPY Routine 12/18/2023 8:00 AM EDT CBC WITH AUTO DIFFERENTIAL Routine 12/18/2023 4:43 AM EDT MAGNESIUM, PLASMA Routine 12/18/2023 4:4 2 AM EDT BASIC METABOLIC PANEL, PLASMA Routine 12/18/2023 4:42 AM EDT EXTRA TUBE LAVENDER TOP Routine 12/17/2023 9:37 PM EDT EXTRA TUBES Routine 12/17/2023 9:37 PM EDT PHOSPHORUS, PLASMA Routine 12/17/2023 9: 11 PM EDT MAGNESIUM, PLASMA Routine 12/17/2023 9:1 1 PM EDT BASIC METABOLIC PANEL, PLASMA Routine 12/17/2023 9:11 PM EDT BLOOD CULTURE (AEROBIC/ANAEROBIC SET) Routine 12/17/2023 9:11 PM EDT OXYGEN THERAPY Routine 12/17/2023 8:00 PM EDT POCT GLUCOSE METER UNSOLICITED RESULTS Routine 12/17/2023 7:32 PM EDT POCT GLUCOSE METER UNSOLICITED RESULTS Routine 12/17/2023 6:01 PM EDT BASIC METABOLIC PANEL, PLASMA Routine 12/17/2023 2:19 PM EDT POCT GLUCOSE METER UNSOLICITED RESULTS Routine 12/17/2023 12:56 PM EDT WOUND OSTOMY EVAL AND TREAT Routine 12/17/2023 11:20 AM EDT FERRITIN, SERUM Routine 12/17/2023 9:51 AM EDT BLOOD GAS PANEL, VENOUS Routine 12/17/2023 9:51 AM EDT POCT GLUCOSE METER UNSOLICITED RESULTS Routine 12/17/2023 8:46 AM EDT US ABDOMEN DOPPLER LIMITED Routine 12/17/2023 8:31 AM EDT OXYGEN THERAPY Routine 12/17/2023 8:00 AM EDT PROTEIN, URINE, RANDOM WITH CREATININE Routine 12/17/2023 6:18 AM EDT LACTATE, VENOUS Routine 12/17/2023 5:10 AM EDT APTT Routine 12/17/2023 4:00 AM EDT PROTHROMBIN TIME(PT) / INR Routine 12/17/2023 4:00 AM EDT LIPID PROFILE, PLASMA Add-On 12/17/2023 1:47 AM EDT IRON & TOTAL IRON BINDING CAPACITY, PLASMA (INCLUDES TRANSFERRIN) Add-On 12/17/2023 1:47 AM EDT HEMOGLOBIN A1C STAT Add-on 12/17/2023 1:47 AM EDT URINALYSIS, DIPSTICK STAT 12/17/2023 1:47 AM EDT N-TERMINAL PROBNP, PLASMA STAT 12/17/2023 1:47 AM EDT MAGNESIUM, PLASMA STAT 12/17/2023 1:4 7 AM EDT COMPREHENSIVE METABOLIC PANEL, PLASMA STAT 12/17/2023 1:47 AM EDT CBC W/O DIFFERENTIAL STAT 12/17/2023 1:47 AM EDT SARS COV-2/COVID-19 BY PCR Routine 12/17/2023 1:47 AM EDT MULTI DRUG RESISTANCE TEST Routine 12/17/2023 1:47 AM EDT BACTERIAL ID GRAM POSITIVE Routine 12/17/2023 1:36 AM EDT BLOOD CULTURE (AEROBIC/ANAEROBIC SET) Routine 12/17/2023 1:36 AM EDT POCT GLUCOSE METER UNSOLICITED RESULTS Routine 12/17/2023 1:22 AM EDT ECG ADULT STAT 12/17/2023 1:08 AM EDT OXYGEN THERAPY Routine 12/17/2023 12:49 AM EDT OXYGEN THERAPY Routine 12/17/2023 12:49 AM EDT OXYGEN THERAPY Routine 12/17/2023 12:49 AM EDT TROPONIN T, HIGH SENSITIVITY, 2 HOUR, PLASMA Timed 12/16/2023 8:54 PM EDT ECG ADULT Routine 12/16/2023 8:29 PM EDT XR CHEST 1 VIEW STAT 12/16/2023 7:05 PM EDT FREE T4, PLASMA STAT 12/16/2023 6:42 PM EDT TSH STAT 12/16/2023 6:42 PM EDT N-TERMINAL PROBNP, PLASMA STAT 12/16/2023 6:42 PM EDT TROPONIN T, HIGH SENSITIVITY, 0 HOUR, PLASMA, REFLEX TO 2 HOUR STAT 12/16/2023 6:42 PM EDT CBC WITH AUTO DIFFERENTIAL STAT 12/16/2023 6:42 PM EDT COMPREHENSIVE METABOLIC PANEL, PLASMA STAT 12/16/2023 6:42 PM EDT POCT GLUCOSE METER UNSOLICITED RESULTS Routine 12/16/2023 6:00 PM EDT [facility] ED POCUS PROCDOC Routine 12/16/2023 5:49 PM EDT POC ULTRASOUND 12/16/2023 HEPATITIS C ANTIBODY - ED W/REFLEX TO HCV QUANT PCR STAT 02/03/2023 6:48 AM EST ED PROTOCOL HIV 1/2 ANTIBODY/ANTIGEN SCREEN W/REFLEX TO HIV 1/2 ANTIBODY DIFFERENTIATION STAT 02/03/2023 6:48 AM EST from Last 3 Months or Most Recently Relevant to Health Maintenance Results * Red Top (02/20/2024 4:29 AM EST) Extra Hold for add-ons 02/20/2024 7:01 AM EST [facility] Comment:Auto resulted. Blood Venous blood specimen / Unknown 02/20/2024 4:29 AM EST 02/20/2024 4:29 AM EST us Jakob Phipps MD LAB BLOOD ORDERABLES Final Re sult [facility] [address] [place] [address] * (ABNORMAL) CBC w/diff (02/20/2024 4:15 AM EST) Only the most recent of11 resultswithin the time period is included. WBC Count 4.44 3.70 - 10.30 10*3/uL LAB HEMATOLOGY METHOD 02/20/2024 4:30 AM EST [facility] RBC Count 4.85 4.60 - 6.10 10*6/uL LAB HEMATOLOGY METHOD 02/20/2024 4:30 AM EST [facility] HGB 12.8(L) 13.7 - 17.5 g/dL LAB HEMATOLOGY METHOD 02/20/2024 4:30 AM EST [facility] HCT 41.3 40.0 - 51.0 % LAB HEMATOLOGY METHOD 02/20/2024 4:30 AM EST [facility] Platelet Count 193 155 - 369 10*3/uL LAB HEMATOLOGY METHOD 02/20/2024 4:30 AM EST [facility] MCV 85 79 - 98 fL LAB HEMATOLOGY METHOD 02/20/2024 4:30 AM EST [facility] MCH 26.4 26.0 - 32.0 pg LAB HEMATOLOGY METHOD 02/20/2024 4:30 AM EST [facility] MCHC 31.0 30.7 - 35.5 g/dL LAB HEMATOLOGY METHOD 02/20/2024 4:30 AM EST [facility] RDW 18.1(H) 11.5 - 14.5 % LAB HEMATOLOGY METHOD 02/20/2024 4:30 AM EST [facility] MPV 11.0 8.8 - 12.5 fL LAB HEMATOLOGY METHOD 02/20/2024 4:30 AM EST [facility] nRBC 0.0 <=0.0 per 100 WBCs LAB HEMATOLOGY METHOD 02/20/2024 4:30 AM EST [facility] Differential Type Automated LAB HEMATOLOGY METHOD 02/20/2024 4:30 AM EST [facility] Neutrophils % 68 % LAB HEMATOLOGY METHOD 02/20/2024 4:30 AM EST [facility] Lymphocytes % 23 % LAB HEMATOLOGY METHOD 02/20/2024 4:30 AM EST [facility] Monocytes % 7 % LAB HEMATOLOGY METHOD 02/20/2024 4:30 AM EST [facility] Eosinophils % 1 % LAB HEMATOLOGY METHOD 02/20/2024 4:30 AM EST [facility] Basophils % 1 % LAB HEMATOLOGY METHOD 02/20/2024 4:30 AM EST [facility] Immature Granulocytes % 0 % LAB HEMATOLOGY METHOD 02/20/2024 4:30 AM EST [facility] Neutrophils Absolute 3.02 1.60 - 6.10 10*3/uL LAB HEMATOLOGY METHOD 02/20/2024 4:30 AM EST [facility] Lymphocytes Absolute 1.01(L) 1.20 - 3.90 10*3/uL LAB HEMATOLOGY METHOD 02/20/2024 4:30 AM EST [facility] Monocytes Absolute 0.31 0.30 - 0.90 10*3/uL LAB HEMATOLOGY METHOD 02/20/2024 4:30 AM EST [facility] Eosinophils Absolute 0.06 0.00 - 0.50 10*3/uL LAB HEMATOLOGY METHOD 02/20/2024 4:30 AM EST [facility] Basophils Absolute 0.03 0.00 - 0.10 10*3/uL LAB HEMATOLOGY METHOD 02/20/2024 4:30 AM [facility] Immature Granulocytes Absolute 0.01 0.00 - 0.06 10*3/uL LAB HEMATOLOGY METHOD 02/20/2024 4:30 AM EST [facility] Blood Venous blood specimen / Unknown Venipuncture / Unknown 02/20/2024 4:15 AM EST 02/20/2024 4:[address] [facility] - 02[facility]20/[facility]24 4:30 AM EST Therapeutic decision making should be based on absolute values, rather than percentages. us Jakob Phipps MD LAB BLOOD ORDERABLES Final Re sult [facility] [address] [place] [address] * (ABNORMAL) Blood gas panel, venous (02/20/2024 4:15 AM EST) Only the most recent of2 resultswithin the time period is included. pH, Venous 7.35 7.32 - 7.43 LAB HEMATOLOGY METHOD 02/20/2024 4:42 AM [facility] pCO2, Venous 50 40 - 55 mmHg LAB HEMATOLOGY METHOD 02/20/2024 4:42 AM [facility] pO2, Venous 17(L) 25 - 40 mmHg LAB HEMATOLOGY METHOD 02/20/2024 4:42 AM [facility] SO2, Measured, Venous 14(L) 65 - 80 % LAB HEMATOLOGY METHOD 02/20/2024 4:42 AM [facility] Base Excess, Venous 1.5 -2.0 - 3.0 mmol/L LAB HEMATOLOGY METHOD 02/20/2024 4:42 AM [facility] Bicarbonate, Calculated, Venous 28(H) 22 - 26 mmol/L LAB HEMATOLOGY METHOD 02/20/2024 4:42 AM [facility] Hematocrit, Whole Blood 39.7(L) 40.0 - 51.0 % LAB HEMATOLOGY METHOD 02/20/2024 4:42 AM [facility] Sodium, Whole Blood 141 136 - 145 mmol/L LAB HEMATOLOGY METHOD 02/20/2024 4:42 AM [facility] Potassium, Whole Blood 5.4(H) 3.6 - 4.9 mmol/L LAB HEMATOLOGY METHOD 02/20/2024 4:42 AM [facility] Chloride, Whole Blood 104 97 - 107 mmol/L LAB HEMATOLOGY METHOD 02/20/2024 4:42 AM [facility] Glucose, Whole Blood 186(H) 74 - 99 mg/dL LAB HEMATOLOGY METHOD 02/20/2024 4:42 AM [facility] Lactate, Venous, Whole Blood 1.2 0.5 - 2.2 mmol/L LAB HEMATOLOGY METHOD 02/20/2024 4:42 AM [facility] Ionized Calcium, Whole Blood 4.7 4.6 - 5.1 mg/dL LAB HEMATOLOGY METHOD 02/20/2024 4:42 AM [facility] Blood Venous blood specimen / Unknown Venipuncture / Unknown 02/20/2024 4:15 AM EST 02/20/2024 4:40 AM EST us Jakob Phipps MD LAB BLOOD ORDERABLES Final Re sult [facility] [address] [place] [address] * (ABNORMAL) BMP (02/20/2024 4:15 AM EST) Only the most recent of20 resultswithin the time period is included. Glucose, Plasma 190(H) 74 - 99 mg/dL 02/20/2024 5:08 AM EST [facility] BUN, Plasma 44(H) 7 - 21 mg/dL 02/20/2024 5:08 AM EST [facility] Creatinine, Plasma 2.93(H) 0.70 - 1.20 mg/dL 02/20/2024 5:08 AM EST [facility] BUN/Creatinine Ratio 15 02/20/2024 5:08 AM EST [facility] Sodium, Plasma 138 136 - 145 mmol/L 02/20/2024 5:08 AM EST [facility] Potassium, Plasma 5.6(H) 3.6 - 4.9 mmol/L 02/20/2024 5:08 AM EST [facility] Chloride, Plasma 102 97 - 107 mmol/L 02/20/2024 5:08 AM EST [facility] CO2, Plasma 25 22 - 29 mmol/L 02/20/2024 5:08 AM EST [facility] Anion Gap 11 6 - 16 mmol/L 02/20/2024 5:08 AM EST [facility] Total Calcium, Plasma 9.2 8.9 - 10.2 mg/dL 02/20/2024 5:08 AM EST [facility] eGFRcr 24.3 mL/min/1.7 3m*2 02/20/2024 5:08 AM EST [facility] Comment:Reported eGFRcr in m L/min/1.73m2 is based the CKD-EPI 2020 equation that does not use a race coefficient. Blood Venous blood specimen / Unknown Venipuncture / Unknown 02/20/2024 4:15 AM EST 02/20/2024 4:39 AM EST Jakob Phipps MD LAB BLOOD ORDERABLES Final Re sult [facility] [address] [place] [address] * ECG Adult (02/20/2024 3:15 AM EST) Only the most recent of5 resultswithin the time period is included. EKG DIAGNOSIS CLASS Abnormal MUSE ECG Ventricular Rate 93 BPM MUSE ECG Atrial Rate 93 BPM MUSE ECG NM Interval 160 ms MUSE ECG QRSD Interval 116 ms MUSE ECG QT Interval 386 ms MUSE ECG QTC Interval 479 ms MUSE ECG P Reliance 48 degrees MUSE ECG R Reliance -28 degrees MUSE ECG T Wave Reliance 123 degrees MUSE ECG Diagnosis Normal sinus rhythm MUSE ECG Diagnosis Minimal voltage criteria for LVH, may be normal variant ( Uzair product ) with repolarization abnormality MUSE ECG Diagnosis Poor R-wave progression MUSE ECG Diagnosis Abnormal ECG MUSE ECG Diagnosis MUSE ECG Diagnosis Confirmed by Ayo Joyner ([id number]) on 02/20/2024 12:59:07 PM MUSE ECG 02/20/2024 3:15 AM EST 02/20/2024 12:59 PM EST Jakob Phipps MD ECG ORDERABLES Final Result Performing Organization Address [facility] Co de Phone Number MUSE ECG * (ABNORMAL) POCT glucose meter (02/05/2024 8:27 AM EST) Only the most recent of63 resultswithin the time period is included. Pathologist [facility] POCT Glucose 152(H) 74 - 99 mg/dL 02/05/2024 8:28 AM EST [facility] Comment:Accuracy of a glucos e result obtained from a capillary whole blood specimen relies upon adequate, non-compromised capillary blood flow. If the capillary glucose result is not consistent with the patient's clinical signs and symptoms, glucose testing should be repeated with either an arterial or venous sample on the glucometer or sent to the main labortory for testing. Comment 02/05/2024 8:28 AM EST [facility] Writing Tutor ID Jose J Yumi 8:28 AM EST [facility] Device ID [id number] 02/05/2024 8:28 AM EST HEALTHCARE LAB Specimen Type POC Capillary 02/05/2024 8:28 AM EST [facility] Blood Capillary blood specimen / Unknown 02/05/2024 8:27 AM EST 02/05/2024 8:28 AM EST Dustin Barakat MD LAB POINT OF CARE TE ST DOCKED DEVICE UNSOLICITED RESULTS Final Result [facility] [address] [place] [address] * (ABNORMAL) CBC W/O Differential (02/05/2024 3:55 AM EST) Only the most recent of2 resultswithin the time period is included. WBC Count 4.07 3.70 - 10.30 10*3/uL LAB HEMATOLOGY METHOD 02/05/2024 4:35 AM EST [facility] RBC Count 4.16(L) 4.60 - 6.10 10*6/uL LAB HEMATOLOGY METHOD 02/05/2024 4:35 AM EST [facility] HGB 11.0(L) 13.7 - 17.5 g/dL LAB HEMATOLOGY METHOD 02/05/2024 4:35 AM EST [facility] HCT 34.8(L) 40.0 - 51.0 % LAB HEMATOLOGY METHOD 02/05/2024 4:35 AM EST [facility] Platelet Count 200 155 - 369 10*3/uL LAB HEMATOLOGY METHOD 02/05/2024 4:35 AM EST [facility] MCV 84 79 - 98 fL LAB HEMATOLOGY METHOD 02/05/2024 4:35 AM EST [facility] MCH 26.4 26.0 - 32.0 pg LAB HEMATOLOGY METHOD 02/05/2024 4:35 AM EST [facility] MCHC 31.6 30.7 - 35.5 g/dL LAB HEMATOLOGY METHOD 02/05/2024 4:35 AM EST [facility] RDW 19.7(H) 11.5 - 14.5 % LAB HEMATOLOGY METHOD 02/05/2024 4:35 AM EST [facility] MPV 10.6 8.8 - 12.5 fL LAB HEMATOLOGY METHOD 02/05/2024 4:35 AM EST [facility] nRBC 0.0 <=0.0 per 100 WBCs LAB HEMATOLOGY METHOD 02/05/2024 4:35 AM EST [facility] Blood Venous blood specimen / Unknown Venipuncture / Unknown 02/05/2024 3:55 AM EST 02/05/2024 4:27 AM EST us Dustin Barakat MD LAB BLOOD ORDERABLES Final Re sult [facility] [address] [place] [address] * (ABNORMAL) Magnesium (02/05/2024 3:55 AM EST) Only the most recent of15 resultswithin the time period is included. Magnesium, Plasma 2.5(H) 1.9 - 2.4 mg/dL 02/05/2024 4:52 AM EST [facility] Blood Venous blood specimen / Unknown Venipuncture / Unknown 02/05/2024 3:55 AM EST 02/05/2024 4:23 AM EST us Dustin Barakat MD LAB BLOOD ORDERABLES Final Re sult Performing Organization Address [facility] Co de Phone Number [facility] [address] [place] [address] * Lavender Top (02/04/2024 3:47 AM EST) Only the most recent of3 resultswithin the time period is included. Extra Hold for add-ons 02/04/2024 7:01 AM EST [facility] Comment:Auto resulted. Blood Venous blood specimen / Unknown 02/04/2024 3:47 AM EST 02/04/2024 4:39 AM EST us Dustin Barakat MD LAB BLOOD ORDERABLES Final Re sult Performing Organization Address City/[facility]/ZIP Co de Phone Number [facility] [address] [place] [address] * Aspartate Aminotransferase, Plasma (02/03/2024 2:26 AM EST) AST, Plasma 35 10 - 50 U/L 02/03/2024 9:01 AM EST [facility] Blood Venous blood specimen / Unknown Venipuncture / Unknown 02/03/2024 2:26 AM EST 02/03/2024 2:37 AM EST Dustin Barakat MD LAB BLOOD ORDERABLES Final Re sult [facility] [address] [place] [address] * Alanine Aminotransferase, Plasma (02/03/2024 2:26 AM EST) ALT, Plasma 23 10 - 50 U/L 02/03/2024 9:01 AM EST [facility] Blood Venous blood specimen / Unknown Venipuncture / Unknown 02/03/2024 2:26 AM EST 02/03/2024 2:37 AM EST Dustin Barakat MD LAB BLOOD ORDERABLES Final Re sult Performing Organization Address City/[facility]/[place] [address] * (ABNORMAL) Alkaline Phosphatase (02/03/2024 2:26 AM EST) Alkaline Phosphatase, Plasma 317(H) 40 - 115 U/L 02/03/2024 9:01 AM EST [facility] Blood Venous blood specimen / Unknown Venipuncture / Unknown 02/03/2024 2:26 AM EST 02/03/2024 2:37 AM EST Dustin Barakat MD LAB BLOOD ORDERABLES Final Re sult Performing Organization Address City/[facility]/ZIP Co de Phone Number [address] [address] * Bilirubin, total (02/03/2024 2:26 AM EST) Total Bilirubin, Plasma 0.8 0.2 - 1.1 mg/dL 02/03/2024 9:01 AM EST [facility] Blood Venous blood specimen / Unknown Venipuncture / Unknown 02/03/2024 2:26 AM EST 02/03/2024 2:37 AM EST us Dustin Barakat MD LAB BLOOD ORDERABLES Final Re sult [facility] [address] [place] [address] * VAS US Venous Duplex Lower Extremity Unilateral Right (02/01/2024 8:03 AM EST) Anatomical Region Laterality Modality Lower Extremities Ultrasound Impressions 02/02/2024 9:39 AM EST Right: Normal study; no evidence of acute DVT is identified. ? COMMUNICATION: Per this written report. Preliminary report signed by Tania Rodriguez RVT on 02/01/2024 9:23 AM By electronically signing this report, I, the attending physician, attest that I have personally reviewed the images/data for the above examination(s) and agree with the final edited report. Drafted by Tania Rodriguez RVT on 02/01/2024 9:18 AM Final report signed by Mayela Duenas MD on 02/02/2024 9:39 AM Narrative 02/02/2024 9:39 AM EST CLINICAL INDICATION: Acute Limb Swelling. TECHNIQUE: Non-invasive, real time duplex exam of the lower extremity venous circulation with Doppler ultrasonic waveform and spectral analysis was performed. COMPARISON: None. FINDINGS: Right: Venous duplex demonstrates compressible common femoral, femoral, popliteal, posterior tibial and peroneal veins. ??The venous spectral analysis demonstrates a spontaneous, phasic, augmentable and nonpulsatile flow signal. 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 Procedure Note Mayela Duenas MD - 02/02/2024 CLINICAL INDICATION: Acute Limb Swelling. TECHNIQUE: Non-invasive, real time duplex exam of the lower extremity venouscirculation with Doppler ultrasonic waveform and spectral analysis wasperformed. COMPARISON: None. FINDINGS: Right: Venous duplex demonstrates compressible common femoral, femoral,popliteal, posterior tibial and peroneal veins. The venous spectralanalysis demonstrates a spontaneous, phasic, augmentable and nonpulsatileflow signal. Left: Unable to visualize common femoral vein for comparison due toamputation. IMPRESSION: Right: Normal study; no evidence of acute DVT is identified. COMMUNICATION: Per this written report. Preliminary report signed by Tania Rodriguez RVT on 02/01/2024 9:23 AM By electronically signing this report, I, the attending physician, attestthat I have personally reviewed the images/data for the aboveexamination(s) and agree with the final edited report. Drafted by Tania Rodriguez RVT on 02/01/2024 9:18 AM Final report signed by Mayela Duenas MD on 02/02/2024 9:39 AM us Darrin Mitchell MD CV VASCULAR PROCEDURES Final R esult * (ABNORMAL) Comprehensive metabolic panel (02/01/2024 4:55 AM EST) Only the most recent of5 resultswithin the time period is included. Glucose, Plasma 183(H) 74 - 99 mg/dL 02/01/2024 5:33 AM [facility] BUN, Plasma 53(H) 7 - 21 mg/dL 02/01/2024 5:33 AM EST [facility] Creatinine, Plasma 2.75(H) 0.70 - 1.20 mg/dL 02/01/2024 5:33 AM EST [facility] BUN/Creatinine Ratio 19 02/01/2024 5:33 AM EST [facility] Sodium, Plasma 138 136 - 145 mmol/L 02/01/2024 5:33 AM [facility] Potassium, Plasma 4.3 3.6 - 4.9 mmol/L 02/01/2024 5:33 AM EST [facility] Chloride, Plasma 99 97 - 107 mmol/L 02/01/2024 5:33 AM EST [facility] CO2, Plasma 26 22 - 29 mmol/L 02/01/2024 5:33 AM EST [facility] Anion Gap 13 6 - 16 mmol/L 02/01/2024 5:33 AM [facility] Total Calcium, Plasma 9.1 8.9 - 10.2 mg/dL 02/01/2024 5:33 AM EST [facility] Total Protein 6.4 6.3 - 7.9 g/dL 02/01/2024 5:33 AM EST [facility] Albumin, Plasma 3.3(L) 3.5 - 5.2 g/dL 02/01/2024 5:33 AM EST [facility] AST, Plasma 39 10 - 50 U/L 02/01/2024 5:33 AM EST [facility] ALT, Plasma 26 10 - 50 U/L 02/01/2024 5:33 AM EST [facility] Alkaline Phosphatase, Plasma 331(H) 40 - 115 U/L 02/01/2024 5:33 AM EST [facility] Total Bilirubin, Plasma 1.0 0.2 - 1.1 mg/dL 02/01/2024 5:33 AM EST [facility] eGFRcr 26.2 mL/min/1.7 3m*2 02/01/2024 5:33 AM EST [facility] Comment:Reported eGFRcr in m L/min/1.73m2 is based the CKD-EPI 2020 equation that does not use a race coefficient. Blood Venous blood specimen / Unknown Venipuncture / Unknown 02/01/2024 4:55 AM EST 02/01/2024 5:05 AM EST us Darrin Mitchell MD LAB BLOOD ORDERABLES Final Res ult [facility] [address] [place] [address] * (ABNORMAL) Troponin T, High Sensitivity, 2 Hour, Plasma (01/30/2024 1:20 PM EST) Only the most recent of2 resultswithin the time period is included. Troponin T, High Sensitivity, 2 Hour 65(H) <19 ng/L 01/30/2024 2:24 PM EST [facility] Troponin Delta 6 <10 ng/L 01/30/2024 2:24 PM EST [facility] Troponin Delta Interpretation Not Significant 01/30/2024 2:24 PM EST [facility] Comment:Not Significant. No acute change in troponin observed between the baseline and 2 hour samples. Blood Venous blood specimen / Unknown Venipuncture / Unknown 01/30/2024 1:20 PM EST 01/30/2024 1:32 PM EST us Carmencita Slaughter MD LAB BLOOD ORDERABLES Final Res ult Performing Organization Address [facility] Co de Phone Number [facility] [address] [place] [address] * (ABNORMAL) Multi Drug Resistance Test (01/30/2024 12:32 PM EST) Only the most recent of2 resultswithin the time period is included. Culture Methicillin-Resist ant Staphylococcus aureus(AA) 01/31/2024 12:14 PM EST [facility] Comment:Previously isolated, still present in culture. Swab Both anterior nares / Unknown Non-blood Collection / Unknown 01/30/2024 12:32 PM EST 01/30/2024 12:57 PM EST us Darrin Mitchell MD LAB MICROBIOLOGY - GENERAL ORD ERABLES Final Result Performing Organization Address [facility] Co de Phone Number [facility] [address] [place] [address] * (ABNORMAL) Troponin now and 120 min (01/30/2024 10:32 AM EST) Only the most recent of2 resultswithin the time period is included. Troponin T, High Sensitivity, 0 Hour 71(H) <19 ng/L 01/30/2024 10:59 AM EST [facility] Blood Venous blood specimen / Unknown Venipuncture / Unknown 01/30/2024 10:32 AM EST 01/30/2024 10:34 AM EST Carmencita Slaughter MD LAB BLOOD ORDERABLES Final Res ult Performing Organization Address City/[facility] Co de Phone Number [facility] [address] [place] [address] * (ABNORMAL) Potassium (01/30/2024 10:32 AM EST) Only the most recent of2 resultswithin the time period is included. Potassium, Plasma 5.1(H) 3.6 - 4.9 mmol/L 01/30/2024 10:59 AM EST [facility] Blood Venous blood specimen / Unknown Venipuncture / Unknown 01/30/2024 10:32 AM EST 01/30/2024 10:34 AM EST Carmencita Slaughter MD LAB BLOOD ORDERABLES Final Res ult Performing Organization Address City/[facility]/ZIP Co de Phone Number [facility] [address] [place] [address] * Light Green Top (01/30/2024 9:55 AM EST) Extra Hold for add-ons 01/30/2024 12:01 PM EST [facility] Comment:Auto resulted. Blood Venous blood specimen / Unknown 01/30/2024 9:55 AM EST 01/30/2024 9:58 AM EST Carmencita Slaughter MD LAB BLOOD ORDERABLES Final Res ult Performing Organization Address [facility] de Phone Number [facility] [address] [place] [address] * XR Chest 1 View (01/30/2024 9:20 AM EST) Only the most recent of2 resultswithin the time period is included. Anatomical Region Laterality Modality Chest Digital Radiogra phy Impressions 01/30/2024 9:37 AM EST Possible small left-sided pleural effusion. Otherwise, no acute findings. CRITICAL RESULT: ?? No. COMMUNICATION: Per this written report. Preliminary report signed by Maco Norman M.D. on 01/30/2024 9:26 AM By electronically signing this report, I, the attending physician, attest that I have personally reviewed the images/data for the above examination(s) and agree with the final edited report. Drafted by Maco Norman M.D. on 01/30/2024 9:24 AM Final report signed by Zia Hansen MD on 01/30/2024 9:37 AM Narrative 01/30/2024 9:37 AM EST CLINICAL INDICATION: sob TECHNIQUE: XR CHEST 1 VIEW COMPARISON: 12/16/2023 FINDINGS: Possible small left-sided pleural effusion. No consolidation or pneumothorax. The cardiac silhouette is mildly enlarged. Prior coronary stenting. No acute osseous findings. Procedure Note Zia Hansen MD - 01/30/2024 CLINICAL INDICATION: sob TECHNIQUE: XR CHEST 1 VIEW COMPARISON: 12/16/2023 FINDINGS: Possible small left-sided pleural effusion. No consolidation orpneumothorax. The cardiac silhouette is mildly enlarged. Prior coronarystenting. No acute osseous findings. IMPRESSION: Possible small left-sided pleural effusion. Otherwise, no acutefindings. CRITICAL RESULT: No. COMMUNICATION: Per this written report. Preliminary report signed by Maco Norman M.D. on 01/30/2024 9:26 AM By electronically signing this report, I, the attending physician, attestthat I have personally reviewed the images/data for the aboveexamination(s) and agree with the final edited report. Drafted by Maco Norman M.D. on 01/30/2024 9:24 AM Final report signed by Zia Hansen MD on 01/30/2024 9:37 AM Carmencita Slaughter MD IMG XR PROCEDURES Final Result * SARS-CoV-2, Flu A, Flu B, and RSV - Rapid (01/30/2024 9:13 AM EST) SARS CoV-2/COVID-19 RNA PCR Result Not Detected Not Detected 01/30/2024 10:18 AM EST [facility] Influenza A Virus PCR Result Not Detected Not Detected 01/30/2024 10:18 AM EST [facility] Influenza B Virus PCR Result Not Detected Not Detected 01/30/2024 10:18 AM EST [facility] Respiratory Syncytial Virus (RSV) PCR Result Not Detected Not Detected 01/30/2024 10:18 AM EST [facility] Swab Nasopharyngeal structure / Unknown Non-blood Collection / Unknown 01/30/2024 9:13 AM EST 01/30/2024 9:33 AM EST Narrative [facility] - 01/30/2024 10:18 AM EST This test is FDA approved for use with nasopharyngeal specimens in Viral Transport Media (VTM). This test is used for clinical purposes. It should not be regarded as investigational or for research. This laboratory is certified under the Clinical Laboratory improvement Amendments of 1988 (CLIA-88 as qualified to perform high complexity clinical laboratory testing. This test was performed on the Xpert Xpress SARS CoV-2 Plus assay test, a PCR- based method. Negative results should be considered presumptive and do not preclude current or future infection obtained through community transmission or other exposures. Negative results must be considered in the context of an individual's recent exposures, history, presence of clinical signs and symptoms consistent with COVID-19. Carmencita Slaughter MD LAB MICROBIOLOGY - GENERAL ORD ERABLES Final Result Performing Organization Address City/[facility]/ZIP Co de Phone Number [facility] [address] [place] [address] * (ABNORMAL) BNP (01/30/2024 9:13 AM EST) Only the most recent of4 resultswithin the time period is included. N-Terminal, PROBNP, Plasma >70,000(H) 0 - 899 pg/mL 01/30/2024 9:53 AM EST [facility] Blood Venous blood specimen / Unknown Venipuncture / Unknown 01/30/2024 9:13 AM EST 01/30/2024 9:18 AM EST Carmencita Slaughter MD LAB BLOOD ORDERABLES Final Res ult [facility] [address] [place] [address] * (ABNORMAL) Phosphorus (12/25/2023 3:08 AM EDT) Only the most recent of8 resultswithin the time period is included. Phosphorus, Plasma 4.6(H) 2.5 - 4.5 mg/dL 12/25/2023 4:13 AM EDT [facility] Blood Venous blood specimen / Unknown Venipuncture / Unknown 12/25/2023 3:08 AM EDT 12/25/2023 3:43 AM EDT us John Mattson MD LAB BLOOD ORDERABLES Final Resu lt Performing Organization Address [facility]/ZIP Co de Phone Number [facility] [address] [place] [address] * Morphology (12/24/2023 4:31 AM EDT) Elliptocytes/O valocytes Present LAB HEMATOLOGY METHOD 12/24/2023 6:21 AM EDT [facility] RBC Morphology Slide Reviewed LAB HEMATOLOGY METHOD 12/24/2023 6:21 AM EDT [facility] Platelet Estimate Platelet smear estimate consistent with automated count LAB HEMATOLOGY METHOD 12/24/2023 6:21 AM EDT [facility] Blood Venous blood specimen / Unknown Venipuncture / Unknown 12/24/2023 4:31 AM EDT 12/24/2023 4:38 AM EDT us John Mattson MD LAB BLOOD ORDERABLES Final Resu lt Performing Organization Address City/[facility]/ZIP Co de Phone Number [facility] [address] [place] [address] * (ABNORMAL) Manual Differential (12/24/2023 4:31 AM EDT) Blasts % 0 % LAB HEMATOLOGY METHOD 12/24/2023 6:21 AM EDT [facility] Promyelocytes % 0 % LAB HEMATOLOGY METHOD 12/24/2023 6:21 AM EDT [facility] Myelocytes % 0 % LAB HEMATOLOGY METHOD 12/24/2023 6:21 AM EDT [facility] Metamyelocytes % 0 % LAB HEMATOLOGY METHOD 12/24/2023 6:21 AM EDT [facility] Neutrophils % 72 % LAB HEMATOLOGY METHOD 12/24/2023 6:21 AM EDT [facility] Lymphocytes % 18 % LAB HEMATOLOGY METHOD 12/24/2023 6:21 AM EDT [facility] Reactive Lymphocytes % 3 % LAB HEMATOLOGY METHOD 12/24/2023 6:21 AM EDT [facility] Monocytes % 3 % LAB HEMATOLOGY METHOD 12/24/2023 6:21 AM EDT [facility] Eosinophils % 1 % LAB HEMATOLOGY METHOD 12/24/2023 6:21 AM EDT [facility] Basophils % 3 % LAB HEMATOLOGY METHOD 12/24/2023 6:21 AM EDT [facility] Plasma Cells % LAB HEMATOLOGY METHOD 12/24/2023 6:21 AM EDT [facility] Lymphoma Cells % LAB HEMATOLOGY METHOD 12/24/2023 6:21 AM EDT [facility] Hairy Cell % LAB HEMATOLOGY METHOD 12/24/2023 6:21 AM EDT [facility] Other Cells % LAB HEMATOLOGY METHOD 12/24/2023 6:21 AM EDT [facility] Blasts Absolute 0.00 10*3/UL LAB HEMATOLOGY METHOD 12/24/2023 6:21 AM EDT [facility] Promyelocytes Absolute 0.00 10*3/uL LAB HEMATOLOGY METHOD 12/24/2023 6:21 AM EDT [facility] Myelocytes Absolute 0.00 10*3/uL LAB HEMATOLOGY METHOD 12/24/2023 6:21 AM EDT [facility] Metamyelocytes Absolute 0.00 10*3/uL LAB HEMATOLOGY METHOD 12/24/2023 6:21 AM EDT [facility] Neutrophils Absolute 3.78 1.60 - 6.10 10*3/uL LAB HEMATOLOGY METHOD 12/24/2023 6:21 AM EDT [facility] Lymphocytes Absolute 0.95(L) 1.20 - 3.90 10*3/uL LAB HEMATOLOGY METHOD 12/24/2023 6:21 AM EDT [facility] Reactive Lymphocytes Absolute 0.16 10*3/uL LAB HEMATOLOGY METHOD 12/24/2023 6:21 AM EDT [facility] Monocytes Absolute 0.16(L) 0.30 - 0.90 10*3/uL LAB HEMATOLOGY METHOD 12/24/2023 6:21 AM EDT [facility] Eosinophils Absolute 0.05 0.00 - 0.50 10*3/uL LAB HEMATOLOGY METHOD 12/24/2023 6:21 AM EDT [facility] Basophils Absolute 0.16(H) 0.00 - 0.10 10*3/uL LAB HEMATOLOGY METHOD 12/24/2023 6:21 AM EDT [facility] Plasma Cells Absolute LAB HEMATOLOGY METHOD 12/24/2023 6:21 AM EDT [facility] Lymphoma Cells Absolute LAB HEMATOLOGY METHOD 12/24/2023 6:21 AM EDT [facility] Hairy Cells Absolute LAB HEMATOLOGY METHOD 12/24/2023 6:21 AM EDT [facility] Other Cells Absolute LAB HEMATOLOGY METHOD 12/24/2023 6:21 AM EDT [facility] Blood Venous blood specimen / Unknown Venipuncture / Unknown 12/24/2023 4:31 AM EDT 12/24/2023 4:38 AM EDT us John Mattson MD LAB BLOOD ORDERABLES Final Resu lt [facility] [address] [place] [address] * ECHO, ADULT TRANSTHORACIC COMPLETE (12/20/2023 9:34 AM EDT) BSA 2.13 m2 WILLIAM ISCV Baseline Systolic BP 126 WILLIAM ISCV Baseline Diastolic BP 76 WILLIAM ISCV Height 182.9 WILLIAM ISCV Weight 90.7 WILLIAM ISCV MV E Vmax 133.0 cm/s WILLIAM ISCV MV A Vmax 111.0 cm/s WILLIAM ISCV MV E/A 1.2 cm/s WILLIAM ISCV TR Vmax 295.0 cm/s WILLIAM ISCV RV s' Yinka 10.1 cm/s WILLIAM ISCV TAPSE 23 mm WILLIAM ISCV TR Max PG 35 mmHG WILLIAM ISCV PA acc time 80 msec WILLIAM ISCV mean PAP 43 mmHg WILLIAM ISCV PA NM(ACCEL) 44.4 mmHg WILLIAM ISCV Heart Rate 89 WILLIAM ISCV Ao Root Diam 38 mm WILLIAM ISCV LVOT diam 22 mm WILLIAM ISCV LVOT AREA 3.8 cm2 WILLIAM ISCV LAV(MOD-4ch) 73 mL WILLIAM ISCV RA MOD 4Ch 50 mL WILLIAM ISCV NAHUN 23 mL/m2 WILLIAM ISCV RVSP 43 mmHg WILLIAM ISCV RAP systole 8 mmHg WILLIAM ISCV LAV(MOD-bp) Indexed 35 mL/m2 WILLIAM ISCV LAV(MOD-2ch) 76 mL WILLIAM ISCV Ao V2 VTI 49.6 cm WILLIAM ISCV Ao mean PG 18 mmHg WILLIAM ISCV Ao V2 Vmax 277.5 cm/s WILLIAM ISCV Ao max PG 31 mmHg WILLIAM ISCV Ao V2 mean 200.3 cm/s WILLIAM ISCV LV V1 VTI 21.1 cm WILLIAM ISCV SV(LVOT) 80 mL WILLIAM ISCV LV V1 Vmax 109.5 cm/s WILLIAM ISCV AV VTI Index 0.43 WILLIAM ISCV MATEO(I,D) 1.6 cm2 WILLIAM ISCV MATEO(VTI)/BSA_ph l 0.8 cm2/m2 WILLIAM ISCV LV mean PG 2.6 mmHG WILLIAM ISCV LV V1 mean 75.8 cm/sec WILLIAM ISCV LV max PG 4.8 mmHg WILLIAM ISCV LVIDd 54 mm WILLIAM ISCV IVSd 10 mm WILLIAM ISCV LVPWd 13 mm WILLIAM ISCV LV MASS(C)D 250 g WILLIAM ISCV LV RWT 0.43 mm WILLIAM ISCV LVIDs 47 mm WILLIAM ISCV LA dimension 44 mm WILLIAM ISCV LV EDV(MOD-4ch) 195 mL WILLIAM ISCV LV ESV(MOD4ch) 125 mL WILLIAM ISCV EF(MOD-sp4) 36 % WILLIAM ISCV LV EDV(MOD-2ch) 264 mL WILLIAM ISCV EDV(MOD-bp) 230 mL WILLIAM ISCV LV ESV(MOD2ch) 181 mL WILLIAM ISCV EF(MOD-sp2) 31 % WILLIAM ISCV ESV(MOD-bp) 153 mL WILLIAM ISCV EF(MOD-bp) 33 % WILLIAM ISCV LVLs ap2 9.7 mm WILLIAM ISCV LV Lat e' Velocity 5.5 cm/s WILLIAM ISCV LV Sept e' Yinka 5.0 cm/s WILLIAM ISCV Lat E/e' 24.2 WILLIAM ISCV Sep E/e' 26.6 WILLIAM ISCV Avg E/e' 25.4 WILLIAM ISCV Anatomical Region Laterality Modality Echocardiography Narrative 12/20/2023 11:32 AM EDT ?Left??Ventricle: Based on the linear dimension and/or 2D volumes, the left ventricle is severely dilated in size. There is normal left ventricular myocardial thickness and mass. The left ventricular systolic function is moderately reduced. ??The LVEF as measured by biplane volume is 33%. The diastolic function is abnormal. There is grade II (moderate) diastolic dysfunction. The left ventricular filling pressure is elevated. ?Right??Ventricle: The right ventricle is normal in size. The right ventricular systolic function is normal. Right ventricular systolic pressure is mildly elevated (35-50mmHg). The estimated right ventricular systolic pressure is 43 mmHg. ?Aortic??Valve: There is mild aortic valve regurgitation. There is mild to moderate aortic stenosis. There is moderate (0.25-0.5) valvular aortic stenosis based upon the dimensionless index (LVOT / AV ratio). The peak gradient is 31 mmHg. The mean gradient is 18 mmHg. The estimated aortic valve area by the continuity equation is 1.6 cm2. ?Mitral??Valve: There is moderate mitral regurgitation. ?Compared to the most recently available prior study, and allowing for differences in image quality and technique, AoV gradients have increased. ?? Left Ventricle Based on the linear dimension and/or 2D volumes, the left ventricle is severely dilated in size. There is normal left ventricular myocardial thickness and mass. The left ventricular systolic function is moderately reduced. The LVEF as measured by biplane volume is 33%. The diastolic function is abnormal. There is grade II (moderate) diastolic dysfunction. The left ventricular filling pressure is elevated. See diagram below for wall motion findings. The anterior, anterolateral and inferolateral taylor are akinetic. Right Ventricle The right ventricle is normal in size. The right ventricular systolic function is normal. Right ventricular systolic pressure is mildly elevated (35-50mmHg). The estimated right ventricular systolic pressure is 43 mmHg. Left Atrium The left atrial size is mildly increased with an indexed volume of 35-41 mL/m2. The interatrial septum is intact with no evidence for an atrial septal defect. Right Atrium The right atrial volume index is normal (18-32mL/m2). IVC/SVC Based on the IVC size and respiratory variation, the estimated right atrial pressure is 8mmHg. Mitral Valve There is calcification on the mitral valve leaflets. There is mild mitral annular calcification. The mitral valve chordae are thickened and/or calcified. A b-bump is present indicating elevated left ventricular end-diastolic pressure. There is moderate mitral regurgitation. There is no mitral stenosis. Tricuspid Valve The tricuspid valve is normal in appearance. There is trace tricuspid regurgitation. There is no tricuspid stenosis. Aortic Valve There is calcification of the aortic valve leaflets. There is aortic annular calcfication present. There is mild aortic valve regurgitation. There is mild to moderate aortic stenosis. There is moderate (0.25-0.5) valvular aortic stenosis based upon the dimensionless index (LVOT / AV ratio). The peak gradient is 31 mmHg. The mean gradient is 18 mmHg. The estimated aortic valve area by the continuity equation is 1.6 cm2. Pulmonic Valve The pulmonic valve is normal in appearance. There is trace pulmonic regurgitation. There is no pulmonic stenosis. Pericardium There is a trace pericardial effusion. There is no echocardiographic evidence of cardiac tamponade. Great Vessels The aortic root is normal in size. The sinus of Valsalva (aortic root) diameter is 38 mm by leading edge to leading edge method. The main pulmonary artery is normal in size. Study Details A complete transthoracic echocardiogram using two-dimensional (2D), m-mode, color and spectral flow Doppler imaging was performed. During the study the apical, parasternal, subcostal and suprasternal view was captured. Overall the study quality was good. BP: 126/76 mmHg. Heart Rate: 89 bpm. Heart rate was normal. Height: 182.9 cm. Weight: 90.7 kg. BSA: 2.13 m2. The heart rhythm during this exam was most suggestive of a sinus rhythm. Study Recommendation Compared to the most recently available prior study, and allowing for differences in image quality and technique, AoV gradients have increased. Wall Scoring Baseline Score Index: 1.59 The following segments are akinetic: mid anterior, mid inferolateral, mid anterolateral, apical anterior and apical lateral. All other segments are normal. us Jakob Phipps MD CV ECHO PROCEDURES Final Resu lt * Blood Culture (Aerobic/Anaerobet Set) (12/17/2023 9:11 PM EDT) Only the most recent of2 resultswithin the time period is included. Culture No growth at day 5 MIKE 12/22/2023 10:01 PM EDT [facility] Blood Structure of antecubital vein / Unknown Venipuncture / Unknown 12/17/2023 9:11 PM EDT 12/17/2023 9:47 PM EDT us John Mattson MD LAB MICROBIOLOGY - GENERAL ORDE RABLES Final Result [facility] [address] [place] [address] * Ferritin (12/17/2023 9:51 AM EDT) Ferritin, Serum 131 20 - 400 ng/mL 12/17/2023 10:34 AM EDT [facility] Blood Venous blood specimen / Unknown Venipuncture / Unknown 12/17/2023 9:51 AM EDT 12/17/2023 9:59 AM EDT us John Mattson MD LAB BLOOD ORDERABLES Final Resu lt Performing Organization Address [facility]/ZIP Co de Phone Number [facility] [address] [place] [address] * US Abdomen Doppler Limited (12/17/2023 8:31 AM EDT) Anatomical Region Laterality Modality Abdomen Ultrasound Impressions 12/17/2023 8:42 AM EDT Patent hepatic vasculature with appropriate flow directionality. CRITICAL RESULT: No. COMMUNICATION: Per this written report. Preliminary report signed by Kane Alvarenga DO on 12/17/2023 8:41 AM By electronically signing this report, I, the attending physician, attest that I have personally reviewed the images/data for the above examination(s) and agree with the final edited report. Drafted by Kane Alvarenga DO on 12/17/2023 8:37 AM Final report signed by Camilla Barbosa MD on 12/17/2023 8:42 AM Narrative 12/17/2023 8:42 AM EDT CLINICAL INDICATION: portal venous thrombus TECHNIQUE: Multiplanar evaluation of the hepatic vasculature was undertaken, including the acquisition of Color and Spectral Doppler images. Limited grayscale images were also obtained. COMPARISON: CTA chest February 03, 2023. FINDINGS: Grayscale: The liver is mildly coarse consistent with parenchymal disease. Duplex: Portal Vein: There is antegrade flow within the main portal vein with a velocity of 26-33 cm/sec. Hepatic Artery: The main hepatic artery is patent with normal direction of flow. The resistive index is 0.82. Peak systolic velocity is 64 cm/sec. There is no evidence of obvious stenosis. Hepatic Veins: The hepatic veins are patent with normal direction of flow. Procedure Note Camilla Barbosa MD - 12/17/2023 CLINICAL INDICATION: portal venous thrombus TECHNIQUE: Multiplanar evaluation of the hepatic vasculature was undertaken,including the acquisition of Color and Spectral Doppler images. Limitedgrayscale images were also obtained. COMPARISON: CTA chest February 03, 2023. FINDINGS: Grayscale: The liver is mildly coarse consistent with parenchymal disease. Duplex: Portal Vein: There is antegrade flow within the main portal vein with avelocity of 26-33 cm/sec. Hepatic Artery: The main hepatic artery is patent with normal direction offlow. The resistive index is 0.82. Peak systolic velocity is 64 cm/sec.There is no evidence of obvious stenosis. Hepatic Veins: The hepatic veins are patent with normal direction of flow. IMPRESSION: Patent hepatic vasculature with appropriate flow directionality. CRITICAL RESULT: No. COMMUNICATION: Per this written report. Preliminary report signed by Kane Alvarenga DO on 12/17/2023 8:41 AM By electronically signing this report, I, the attending physician, attestthat I have personally reviewed the images/data for the aboveexamination(s) and agree with the final edited report. Drafted by Kane Alvarenga DO on 12/17/2023 8:37 AM Final report signed by Camilla Barbosa MD on 12/17/2023 8:42 AM John Mattson MD [facility] [place] Final Result * Protein, Random, Urine with Creatinine (12/17/2023 6:18 AM EDT) Protein, Urine 116 mg/dL 12/17/2023 7:46 AM EDT [facility] Creatinine, Urine 37 mg/dL 12/17/2023 7:46 AM EDT [facility] Protein/Creatin ine Ratio 3.1 mg/mg Creat 12/17/2023 7:46 AM EDT [facility] Urine Urine specimen obtained by clean catch procedure / Unknown Non-blood Collection / Unknown 12/17/2023 6:18 AM EDT 12/17/2023 6:22 AM EDT us John Mattson MD LAB URINE ORDERABLES Final Resu lt Performing Organization Address [facility] Co de Phone Number [facility] [address] [place] [address] * Lactate, venous (12/17/2023 5:10 AM EDT) Lactate, Venous, Whole Blood 1.0 0.5 - 2.2 mmol/L LAB HEMATOLOGY METHOD 12/17/2023 5:19 AM EDT [facility] Blood Venous blood specimen / Unknown Venipuncture / Unknown 12/17/2023 5:10 AM EDT 12/17/2023 5:18 AM EDT John Mattson MD LAB BLOOD ORDERABLES Final Resu lt Performing Organization Address [facility] Co de Phone Number [facility] [address] [place] [address] * APTT (12/17/2023 4:00 AM EDT) aPTT 30 25 - 35 sec 12/17/2023 4:16 AM EDT [facility] Blood Venous blood specimen / Unknown Venipuncture / Unknown 12/17/2023 4:00 AM EDT 12/17/2023 4:02 AM EDT Result [facility] us John Mattson MD LAB BLOOD ORDERABLES Final Resu lt Performing Organization Address [facility] Co de Phone Number [facility] [address] [place] [address] * (ABNORMAL) Protime-INR (12/17/2023 4:00 AM EDT) Prothrombin Time 15.3(H) 12.0 - 14.3 sec 12/17/2023 4:16 AM EDT [facility] INR 1.2(H) 0.9 - 1.1 12/17/2023 4:16 AM EDT [facility] Blood Venous blood specimen / Unknown Venipuncture / Unknown 12/17/2023 4:00 AM EDT 12/17/2023 4:02 AM EDT [facility] - 12/17/2023 4:16 AM EDT OPTIMAL INR RANGES FOR PATIENT ON ORAL ANTICOAGULANT THERAPY Prevention of venous thromboembolism ?INR 2.0 to 3.0 In patients with heart disease: Atrial fibrillation ?INR 2.0 to 3.0 Valvular heart disease ? INR 2.0 to 3.0 Tissue heart valves ?INR 2.0 to 3.0 Mechanical prosthetic valves ? INR 2.5 to 3.5 Prevention of recurrent LA ? INR 2.5 to 3.5 us John Mattson MD LAB BLOOD ORDERABLES Final Resu lt [facility] [address] [place] [address] * SARS CoV-2/COVID-19 by PCR (12/17/2023 1:47 AM EDT) SARS CoV-2/COVID-1 9 RNA PCR Result Not Detected Not Detected 12/17/2023 2:54 AM EDT [facility] Swab Nasopharyngeal structure / Unknown Non-blood Collection / Unknown 12/17/2023 1:47 AM EDT 12/17/2023 2:10 AM EDT [facility] - 12/17/2023 2:54 AM EDT This test is FDA approved for use with nasopharyngeal specimens in [employer] (VTM). This test is used for clinical purposes. It should not be regarded as investigational or for research. This laboratory is certified under the Clinical Laboratory improvement Amendments of 1988 (CLIA-88 as qualified to perform high complexity clinical laboratory testing. This test was performed on the Xpert Xpress SARS CoV-2 Plus assay test, a PCR- based method. Negative results should be considered presumptive and do not preclude current or future infection obtained through community transmission or other exposures. Negative results must be considered in the context of an individual's recent exposures, history, presence of clinical signs and symptoms consistent with COVID-19. John Mattson MD LAB MICROBIOLOGY - GENERAL ORDE [facility] Final Result Performing Organization Address [facility] Phone Number [facility] [address] [place] [address] * (ABNORMAL) Iron & Total Iron Binding Capacity, Plasma (Includes Transferrin) (12/17/2023 1:47 AM EDT) Iron, Plasma 23(L) 50 - 170 ug/dL 12/17/2023 10:51 AM EDT [facility] Transferrin, Plasma 202 200 - 360 mg/dL 12/17/2023 10:51 AM EDT [facility] Total Iron Binding Capacity, Plasma 253 240 - 450 ug/mL 12/17/2023 10:51 AM EDT [facility] Transferrin Saturation 9(L) 14 - 50 % 12/17/2023 10:51 AM EDT [facility] Blood Venous blood specimen / Unknown Venipuncture / Unknown 12/17/2023 1:47 AM EDT 12/17/2023 1:57 AM EDT John Mattson MD LAB BLOOD ORDERABLES Final Resu lt Performing Organization Address [facility] de Phone Number [facility] [address] [place] [address] * (ABNORMAL) Urinalysis, manual only (12/17/2023 1:47 AM EDT) Color, Urine Yellow LAB URINALYSIS - AUTOMATED METHOD 12/17/2023 1:53 AM EDT [facility] Clarity, Urine Clear LAB URINALYSIS - AUTOMATED METHOD 12/17/2023 1:53 AM EDT [facility] Spec [place], Urine 1.020 1.005 - 1.030 LAB URINALYSIS - AUTOMATED METHOD 12/17/2023 1:53 AM EDT [facility] pH, Urine 5.5 4.5 to 8 LAB URINALYSIS - AUTOMATED METHOD 12/17/2023 1:53 AM EDT [facility] Protein, Urine >=300(A) Negative mg/dL LAB URINALYSIS - AUTOMATED METHOD 12/17/2023 1:53 AM EDT [facility] Glucose, Urine 500(A) Negative mg/dL LAB URINALYSIS - AUTOMATED METHOD 12/17/2023 1:53 AM EDT [facility] Ketones, Urine Negative Negative mg/dL LAB URINALYSIS - AUTOMATED METHOD 12/17/2023 1:53 AM EDT [facility] Blood, Urine Small(A) Negative LAB URINALYSIS - AUTOMATED METHOD 12/17/2023 1:53 AM EDT [facility] Bilirubin, Urine Negative Negative LAB URINALYSIS - AUTOMATED METHOD 12/17/2023 1:53 AM EDT [facility] Urobilinogen, Urine 0.2 0.2 to 1.0 mg/dL LAB URINALYSIS - AUTOMATED METHOD 12/17/2023 1:53 AM EDT [facility] Leukocytes, Urine Negative Negative LAB URINALYSIS - AUTOMATED METHOD 12/17/2023 1:53 AM EDT [facility] Nitrite, Urine Negative Negative LAB URINALYSIS - AUTOMATED METHOD 12/17/2023 1:53 AM EDT [facility] Urine Urine specimen obtained by clean catch procedure / Unknown Non-blood Collection / Unknown 12/17/2023 1:47 AM EDT 12/17/2023 1:50 AM EDT us John Mattson MD LAB URINE ORDERABLES Final Resu lt [facility] [address] [place] [address] * (ABNORMAL) Hemoglobin A1c (12/17/2023 1:47 AM EDT) Hemoglobin A1c 8.0(H) <5.7 % 12/17/2023 9:23 AM EDT [facility] Blood Venous blood specimen / Unknown Venipuncture / Unknown 12/17/2023 1:47 AM EDT 12/17/2023 1:50 AM EDT Narrative [facility] - 12/17/2023 9:23 AM EDT HA1C Interpretive Data: Diagnosis of Diabetes: Diabetic > or = 6.5% Pre-diabetic 5.7 to 6.4% Non-diabetic < or = 5.6% Glycemic Targets for Type I and Type II Diabetics: Non- Adults <7.0% Adults <6.0% Children and Adolescents <7.5% Source: ??[place] [employer]. Standards of medical care in diabetes,2017. Diabetes Care.2017:40 (suppl 1):S1-S135. HbA1c assay performed by an ion-exchange chromatography method that is certified traceable to the DCCT. us John Mattson MD LAB BLOOD ORDERABLES Final Resu lt [facility] [address] [place] [address] * Lipid panel (12/17/2023 1:47 AM EDT) Cholesterol, Plasma 136 <200 mg/dL 12/17/2023 1:36 PM EDT [facility] Comment: Cholesterol Reference Range (age >17 years): Desirable ? <200 mg/dL Borderline ? 200 to 239 mg/dL Undesirable ? >239 mg/dL HDL 51 >=40 mg/dL 12/17/2023 1:36 PM EDT [facility] Comment: HDL Cholesterol Reference Ranges (age >17 years): Female, acceptable ?? > or = 50 mg/dL Male, acceptable ? > or = 40 mg/dL Triglycerides, Plasma 112 <150 mg/dL 12/17/2023 1:36 PM EDT [facility] Comment: Triglyceride Reference Range (age >17 years): Desirable: ??<150 mg/dL Borderline high: ??150 to 199 mg/dL High: ??200 to 499 mg/dL Very high: ??>499 mg/dL Increased risk of pancreatitis: ??>1000 mg/dL Cholesterol/HDL Ratio 3 12/17/2023 1:36 PM EDT [facility] LDL, Calculated 65 <100 mg/dL 1:36 PM EDT [facility] Comment: LDL Cholesterol Reference Range (age >17 years): Optimal: ??<100 mg/dL Near or above optimal: 100 - 129 mg/dL Borderline high: 130 - 159 mg/dL High: 160 - 189 mg/dL Very high: >189 mg/dL LDL Cholesterol Reference Range (age <18 years): Desirable: ? <110 mg/dL Borderline: ?110 - 129 mg/dL Undesirable: ?? >130 mg/dL LDL Cholesterol is calculated using the Ver[place]/NIH equation. Fasting greater than or equal to 12 hours? Unknown 12/17/2023 1:36 PM EDT [facility] Blood Venous blood specimen / Unknown Venipuncture / Unknown 12/17/2023 1:47 AM EDT 12/17/2023 1:57 AM EDT us John Mattson MD LAB BLOOD ORDERABLES Final Resu lt [facility] [address] [place] [address] * (ABNORMAL) Bacterial ID Gram Positive (12/17/2023 1:36 AM EDT) Pathologist [facility] Staphylococcus Result Detected( A) Not Detected 12/17/2023 10:00 PM EDT [facility] Comment:Assess if contaminan t or clinically relevant pathogen. Consider clinical stability and immune status of patient. Staphylococcus epidermidis Result Detected( A) Not Detected 12/17/2023 10:00 PM EDT [facility] Comment:Assess if contaminan t or clinically relevant pathogen. Consider clinical stability and immune status of patient. MECA Result Detected( A) Not Detected 12/17/2023 10:00 PM EDT [facility] Blood Structure of antecubital vein / Unknown Venipuncture / Unknown 12/17/2023 1:36 AM EDT 12/17/2023 2:09 AM EDT Narrative [facility] - 12/17/2023 10:00 PM EDT Analytes include: Bacillus cereus group, Bacillus subtilis group, Corynebacterium, Cutibacterium acnes (P acnes), Enterococcus, Enterococcus faecalis, Enterococcus faecium, Lactobacillus, Listeria, Listeria monocytogenes, Micrococcus, Staphylococcus, Staphylococcus aureus, Staphylococcus epidermidis, Stapylcoccus lugdunesis, Streptococcus, Streptococcus agalactiae, Streptococcus anginosus group, Streptococcus pneumoniae, Streptococcus pyogenes, Yuan gram negative target, Yuan Saritha target and mecA, mecC, Dustin and vanB resistance genes. ?? NOTE: A Not Detected result for result for a resistance gene does not indicate susceptibility to antimicrobials by mechanisms other than carrying the resistance genes detected by the BCID-GP assay. . YUAN SARITHA: Inclusive of Saritha albicans, Saritha glabrata, Pichia kudriavzevii (formerly Saritha krusei) and Saritha parapsilosis only. . YUAN GRAM NEGATIVE: Includes but not limited to Acinetobacter, Bacteroides, Enterobacteriaceae, Neisseria, Pseudomonas, Serratia, Stenotrophomonas maltophilia. . Reference Value: Not detected for all analytes tested. us John Mattson MD LAB MICROBIOLOGY - GENERAL OSEAS ALLEN Final Result Performing Organization Address City/[facility]/ZIP Co de Phone Number [facility] [address] [place] [address] * Thyroid Stimulating Hormone, Plasma (12/16/2023 6:42 PM EDT) [facility] Thyroid Stimulating Hormone, Plasma 2.51 0.40 - 4.20 uIU/mL 12/16/2023 7:38 PM EDT [facility] Blood Venous blood specimen / Unknown Venipuncture / Unknown 12/16/2023 6:42 PM EDT 12/16/2023 6:52 PM EDT Carmencita Slaughter MD LAB BLOOD ORDERABLES Final Res ult [facility] [address] [place] [address] * Free T4, Plasma (12/16/2023 6:42 PM EDT) [facility] Free T4, Plasma 1.6 0.8 - 1.7 ng/dL 12/16/2023 8:51 PM EDT [facility] Blood Venous blood specimen / Unknown Venipuncture / Unknown 12/16/2023 6:42 PM EDT 12/16/2023 6:52 PM EDT us Carmencita Slaughter MD LAB BLOOD ORDERABLES Final Res ult [facility] [address] [place] [address] * [facility] ED POCUS PROCDOC (12/16/2023 5:49 PM EDT) Narrative Carmencita Slaughter MD - 12/16/2023 5:49 PM EDT Pipo Moya, DO ? 12/28/2023 ??1:13 PM POCUS - ED USE ONLY Performed by: Pipo Moya, DO Authorized by: Jakob Phipps MD ?? Procedure specific details: ?? Limited Cardiac Ultrasound A focused ultrasound of the heart was performed to evaluate for pericardial effusion, tamponade, severe hypovolemia, or gross abnormalities of cardiac anatomy or function in this patient. The ultrasound was performed with the following indications, as noted in the H&P: Lower Extremity Edema Identified structures: The pericardial sac, myocardium, and 4 chambers were identified using the following views: Subxiphoid, Parasternal long axis, Parasternal short axis, and Apical 4 chamber Findings Exam of the above structures revealed the following findings: Pericardial Effusion: Absent Pericardial tamponade: absent Visual estimation of LV function: Severely depressed Visual estimation of RV size: less than 1:1 RV/LV ratio Other: ?? Impression: Severely Diminished LV function The images were Saved in PACS. The study was technically adequate. Comments: us Jakob Phipps MD IN CLINIC/BEDSIDE ORDERABLES Final Result * POC Imaging (12/16/2023) Anatomical Region Laterality Modality Pelvis Other 12/16/2023 us External Provider IMG POINT OF CARE ULTRASOUND F inal Result * Hepatitis C Antibody - ED (02/03/2023 6:48 AM EST) Hepatitis C Antibody Negative Negative 02/03/2023 7:53 AM EST [facility] Blood Venous blood specimen / Unknown Venipuncture / Unknown 02/03/2023 6:48 AM EST 02/03/2023 7:09 AM EST us Don Jeffries MD LAB BLOOD ORDERABLES Final R esult [facility] [address] [place] [address] from Last 3 Months or Most Recently Relevant to Health Maintenance Additional Health Concerns Infection Onset Date Last Indicated MRSA Comment:Positive blood culture 03/03/2019 01/30/2024 Insurance [place] MEDICARE Advance Directives * Full Code (Latest Code Status on File) Date Activated Date Inactivated Comments 01/30/2024 11:44 AM 02/05/2024 12:28 PM Question Answer Comments Patient has decision-making capacity? Yes * Full Code Date Activated Date Inactivated Comments 12/17/2023 12:49 AM 12/25/2023 4:11 PM After discu ssion regarding the risks and benefits of available cardiopulmonary resuscitative measures, including CPR, medications, electric shocks, intubation, and ventilation, at this time pt has elected to remain FULL CODE. Question Answer Comments Patient has decision-making capacity? Yes * Full Code Date Activated Date Inactivated Comments 06/15/2023 10:25 PM 06/17/2023 5:15 PM Question Answer Comments Patient has decision-making capacity? Yes * Full Code Date Activated Date Inactivated Comments 03/23/2023 3:40 PM 03/25/2023 4:49 PM Question Answer Comments Patient has decision-making capacity? Yes * Full Code Date Activated Date Inactivated Comments 02/03/2023 12:04 PM 02/12/2023 5:06 PM Question Answer Comments Patient has decision-making capacity? Yes Care Teams E Mail System Administrator Relationship Specialty Start Date End Date Pcp, No [address] [place] [address] PCP - General Family Medicine 01/30/24 Ceci Greene LPN [employer] [place] [address] TCM Nurse 02/07/24 03/08/24
--- OUTSIDE RECORDS SUMMARY | 2024-02-23 18:54 | XMS_ITS | Encounter Summary ---
Author Organization Healthcare Address [address] [id number] Care Team Providers Care Web Assistant Name Role Phone Pcp, No Primary Care Provider Ceci Pereira LPN Unavailable Unavailable Reason for Visit * Reason Comments Shortness of Breath Encounter Details Date Type Department Care Team ([facility] st Contact Info) Description 02/20/2024 2:58 AM EST - 02/20/2024 6:35 AM EST Emergency [facility] Emergency Department [address] [place] [address] Tawanna Phipps MD [address] [place] [address] Anxiety about health (Primary Dx); COPD without exacerbation (CMS/HCC); Uncontrolled type 2 diabetes mellitus with hyperglycemia (CMS/HCC) Discharge Disposition: Home or Self Care Social [...] place to sleep or slept in a mcfp (including now)? No 02/01/2024 CAGE ASSESSMENT Answer [...] drink first t erin in the morning (EYE-PRINTED CIRCUIT BOARD PANELS DEBURRER) to steady your nerves or to get rid of a hangover? 0 02/05/2023 CAGE Questionnaire Score 0 023 Utilities Answer Date Recorded In the past 12 months has th e Single Digits, gas, oil, or water G-mode threatened to shut off services in your [...] EST Inhaled Oxygen Concentration - - Weight - - Height - - Body Mass Index - - documented in this encounter Discharge Instructions * Discharge Instructions* Mari Ladd MD - 02/20/2024 5:25 AM EST Continue your medications as prescribed. At this time, there is no concern for COPD exacerbation asyou where not requiring oxygen. You may be suffering from anxiety with regards to your health. Follow-up with your primary care provider in the next 3 days for further management of these conditions.Please return to ED if your symptoms worsen, change in location, change in severity, new symptoms develop or if you become concerned for your health. documented in this encounter Medications at Time of Discharge albuterol 108 (90 Base) MCG/ACT inhaler Inhale 2 puffs 4 (four) times a day if needed for wheezing. atorvastatin (Lipitor) 80 MG tablet Take 1 tablet (80 mg) by mouth every night. 90 tablet 3 02/05/2024 Blood Glucose Monitoring Suppl (ONE TOUCH ULTRA 2) w/Device kit device kit Use as instructed to check blood glucose 1 kit 02/05/2024 bumetanide (Bumex) 2 MG tabletIndication s:Heart Failure Take 1 tablet (2 mg) by mouth 1 (one) time each day. If you gain more than 3 pounds in 1 day or 5 pounds in 1 week, take one extra dose of 2mg bumex as needed. 135 tablet 1 02/05/2024 dapagliflozin (Farxiga) 10 MG tablet Take 1 tablet (10 mg) by mouth 1 (one) time each day. 90 tablet 1 12/25/2023 glucose blood (OneTouch Ultra Test) test strip Use up to 4 time(s) daily to check blood glucose 100 each 12 02/05/2024 hydrALAZINE (Apresoline) 25 MG tablet Take 1 tablet (25 mg) by mouth 3 (three) times a day. 270 tablet 3 02/05/2024 5 insulin glargine (Lantus SoloStar, Basaglar) 100 UNIT/ML injection pen Inject 5 Units under the skin every night. 15 mL 3 02/05/2024 Insulin Pen Needle (Pen Axtell) 32G X 4 MM misc Use up to 1 time(s) daily to administer insulin with insulin pen. 100 each 3 02/05/2024 isosorbide dinitrate (Isordil) 10 MG tablet Take 1 tablet (10 mg) by mouth 3 (three) times a day. 270 tablet 3 02/05/2024 5 Lancets misc Use up to 4 time(s) daily to check blood glucose 100 each 3 02/05/2024 metoprolol succinate XL (Toprol-XL) 50 MG 24 hr tablet Take 1 tablet (50 mg) by mouth 1 (one) time each day. Do not crush or chew. 90 tablet 1 12/25/2023 mometasone-formo terol (Dulera 100) 100-5 MCG/ACT inhaler Inhale 2 puffs 2 (two) times a day. Rinse mouth with water after use to reduce aftertaste and incidence of candidiasis. Do not swallow. 39 g 3 02/05/2024 5 nitroglycerin (Nitrostat) 0.[address] 1 tablet (0.4 mg) under the tongue every 5 (five) minutes if needed for chest pain. ocular lubricant (Artificial Tears) 0.2-0.2-1 % solution ophthalmic solution Administer 1 drop into both eyes if needed for irritation. Semaglutide,0.25 or 0.5MG/DOS, 2 MG/3ML solution pen-injector Inject 0.25 mg under the skin 1 (one) time per week for 28 days, THEN 0.5 mg 1 (one) time per week. 3 mL 11 02/05/2024 5 Umeclidinium Dauphin (Incruse Ellipta) 62.5 MCG/ACT aerosol powder Inhale 1 Inhalation 1 (one) time each day. 90 each 3 02/05/2024 5 documented as of this encounter Miscellaneous Notes * ED Notes - Nell Anglin RN - 02/20/2024 6:30 AM EST Patient ready for discharge at this time - RN asked patient if he had someone to come get him and he states no. Discussed options and patient states he does not need oxygen to come home since its almost day time and I don't need oxygen in the daylight. RN placed call to ED social sciences chair for ride back to listed address on [facility] [place]. SW gave RN make / model of arranged ride home andpatient wheeled to lobby per NCT to meet ride. Nell Anglin RN 02/20/24 0633 * Progress Notes - Madelyn Cheng - 02/20/2024 6:28 AM EST Case Management Note Patient Identification: Buzz Hurley Jr. 58 y.o. male CSN: [id number] Admission: 02/20/2024 2:58 AM Primary Problem: No Principal Problem: There is no principal problem currently on the Problem List.Please update the Problem List and refresh. ED SW responded to a request to assist pt with discharge transportation. Address verified as [address] [address], [place] [address]. Ride requested. Pt picked-up and taken to address. No further needs identified. Madelyn Cheng CAPSULE FILLING MACHINE OPERATOR, [employer] [facility] Machine Sander Senior Case Management Case Management Main Office Mon-Wed * Mari Palacio MD - 02/20/2024 5:24 AM EST Images from the original note were not included. [id number] Anxiety Reaction Anxiety is the feeling we all get when we think something bad might happen. It is a normal responseto stress. It most often causes only a mild reaction. But it can interfere with daily life when anxiety is more severe. In some cases, you may not know what you?re anxious about. Anxiety seems to have both mental and physical triggers. You may have stress from home and family. Or work and social relationships. Anxiety tends to run in families. This may mean it?s linked to genes. During an anxiety reaction, you may feel: ?? Helpless ?? Nervous ?? Depressed ?? Grouchy Your body may show signs of anxiety in many ways. You may have: ?? Dry mouth ?? Shakiness ?? Dizziness ?? Weakness ?? Trouble breathing ?? Fast breathing ?? Chest pressure ?? Sweating ?? Headache ?? Nausea ?? Diarrhea ?? Tiredness ?? Inability to sleep ?? Sexual problems Home care Try to find those things that set off anxiety in your life. They may not be obvious. They may include: ?? Daily hassles of life. This can include traffic jams, missed appointments, or car troubles. ?? Major life changes. This means both good changes, such as a new baby or job promotion. This can also mean tough life changes, such as loss of a job or loss of a loved one. ?? Overload. This means feeling that you have too many responsibilities. And that you can't take care of all of them. ?? Feeling helpless. You may feel you don?t have any control or choices. You may feel that your problems can't be solved. Notice how your body reacts to stress. This will help you take action before the stress sets off anxiety. When you can, make changes to reduce the sources of your stress. But stress in life often can't be prevented. It is important to learn how to manage stress to reduce anxiety. There are many proven methods that will reduce your anxiety. These include: ?? Exercise ?? Good nutrition ?? Getting enough sleep ?? Relaxation methods ?? Breathing exercises ?? Visualization ?? Biofeedback ?? Meditation ?? Counseling ?? Medicine For more information about this, talk with your healthcare provider. Or check online or at your local library or bookstore. You'll find many books and audiobooks on this subject. Follow-up care If you feel your anxiety is not getting better with self-help, call your healthcare provider. Or make an appointment with a counselor. You may need short-term counseling or medicine to help you manage anxiety. Call 911 Call 911 if any of the following occur: ?? Trouble breathing ?? Confusion ?? Drowsiness or trouble waking up ?? Fainting ?? Rapid heart rate ?? Seizure ?? New chest pain that becomes more severe, lasts longer, or spreads into your shoulder, arm, neck,jaw, or back Call or text [phone] if you have thoughts of harming yourself or others. You will be connected to trained crisis counselors at the National Suicide Prevention Lifeline. An online chat option is also available at www.suicidepreCareCentrix.org. You can also call Lifeline at 934-223-THGV (447-603-4231). Lifeline is free and available 19/10. When to get medical advice Call your healthcare provider right away if any of the following occur: ?? Symptoms that don't improve or get worse, such as feelings of hopelessness or overwhelming sadness ?? Severe headache not eased by rest and mild pain medicine The National Suicide Prevention Lifeline is available at 930-432-ZKBM (251-329-6437). The Lifeline is available 19/10 and provides free and confidential support. The Lifeline also has an online chat at www.suicideCool Lumens.org. Last Reviewed Date: 2021 00:00:00 ?? 7025-4915 The [employer]. All rights reserved. This information is not intended as a substitute for professional medical care. Always follow your healthcare professional's instructions. * ED Notes - Nell Anglin RN - 02/20/2024 3:37 AM EST Patient on room air at time of arrival with o2 sat of 100%, patient states he has to wear 2 LPM nasal cannula at home or he gets short of breath. RN attempted education regarding correct use of oxygen and patient refused teaching. RN observed patient squeezing the hand with the pulse ox probe tightly into a fist and pressing the finger with the probe on it into the bed several times - Patients oxygen saturation remained >96% on room air while oxygen was off. Later RN noted patients oxygen had been turned back on and was at 8 LPM via nasal cannula. RN attempted to walk past the bed and patient stuck his arm out to block this RN's path to flow meter. After education patient allowed this RNto decrease oxygen to safe levels but refused to allow this RN to fully turn off the oxygen. Resident MD notified via secure chat message. Nell Anglin RN 02/20/24 0358 * ED Provider Notes - Mari Ladd MD - 02/20/2024 2:58 AM EST Images from the original note were not included. - HPI Chief Complaint Patient presents with Shortness of Breath HPI Buzz Hurley is a 58 y/o male presenting with shortness of breath. Patient states he called EMS because a few hours prior to their arrival he had shortness of breath. Patient has a prescription for 2L nasal cannula at home due to his COPD and states that it was difficult to sleep tonight. Patient denies chest pain, headache, nausea, diaphoresis, abdominal pain, bowel or bladder dysfunction. Patient takes clopidogrel and aspirin. Patient History Past 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: Diagnosis Date Personal history of other diseases of the circulatory system History of congestive heart failure Personal history of other diseases of the circulatory system History of other diseases of the circulatory system, not elsewhere classified Personal history of other diseases of the digestive system History of hepatic disease Personal history of other diseases of the musculoskeletal system and connective tissue History of arthritis Personal history of other diseases of the nervous system and sense organs History of sleep apnea Personal history of other diseases of the respiratory system History of asthma Personal history of other diseases of the respiratory system History of chronic obstructive lung disease Personal history of other mental and behavioral disorders History of depression Past Surgical History: Procedure Laterality Date CATH STENT PLACEMENT/ CATH PLACEMENT OF STENT N/A Cath Stent Placement from [facility] CHOLECYSTECTOMY N/A Cholecystectomy from [facility] Family History Problem Relation Name Age of Onset Diabetes Mother Hypertension Mother Hypertension Father Other cancer Father Obesity Mother Conversions - Other Mother Heart trouble Conversions - Other Father Heart trouble Hyperlipidemia Father Tobacco Use Smoking status: Every Day Types: Cigarettes Smokeless tobacco: Never Vaping Use Vaping status: Never Used Substance Use Topics Alcohol use: No Drug use: Never Comment: Drug use: No drug use Allergies: Allergies Allergen Reactions Penicillins Nausea and Rash Rash as a child. Has received ceftriaxone in past without reaction Physical Exam ED Triage Vitals Temp Heart Rate Resp BP 02/20/2430602/20/2430602/20/2430602/20/24306 36.9 ??C (98.5 ??F) 98 20 (!) 151/99 SpO2 Temp Source Heart Rate Source Patient Position 02/20/24 0259 02/20/2430602/20/2430602/20/24306 100 % Oral Monitor Lying BP Location FiO2 (%) 02/20/24306 -- Right arm Physical Exam Vitals and nursing note reviewed. Constitutional: General: He is not in acute distress. Appearance: He is well-developed. HENT: Head: Normocephalic and atraumatic. Eyes: Conjunctiva/sclera: Conjunctivae normal. Cardiovascular: Rate and Rhythm: Normal rate and regular rhythm. Heart sounds: No murmur heard. Pulmonary: Effort: Pulmonary effort is normal. No tachypnea, accessory muscle usage or respiratory distress. Breath sounds: Normal breath sounds. No wheezing. Abdominal: Palpations: Abdomen is soft. Tenderness: There is no abdominal tenderness. Musculoskeletal: General: No swelling. Cervical back: Neck supple. Comments: Amputation of left lower extremity Skin: General: Skin is warm and dry. Capillary Refill: Capillary refill takes less than 2 seconds. Neurological: Mental Status: He is alert. Psychiatric: Mood and Affect: Mood normal. No data recorded ED Course & MDM - Assessment: 58 y.o. male presents to ED with complaint of shortness of breath. It should be noted that the chronic conditions includes COPD, DM, HTN, anxiety, which currently is not at goal therapy. This complicates the clinical picture because it Comorbidities: may be exacerbating symptoms and increases the risk for morbidity Differential Diagnosis: Differential diagnosis includes but is not limited to COPD exacerbation, pleural effusion, noncardiogenic edema, pneumonia, CHF exacerbation, acute coronary syndrome, health anxiety, panic attack. In order to fully explore the differential diagnosis the following treatments and tests were ordered: ED Medication Administration from 02/20/2024 0258 to 02/20/2024 0611 Date/Time Order Dose Route Action 02/20/2024 0414 EST LORazepam (Ativan) tablet 1 mg 1 mg Oral Given 02/20/2024 0525 EST hydrALAZINE (Apresoline) tablet 25 mg -- Oral Canceled Entry All Other Orders Ordered Status Ordering Provider 02/20/24 042 Extra Tubes Once In process TAWANNA PHIPPS 02/20/24 042 Red Top PROCEDURE ONCE In process TAWANNA PHIPPS 02/20/24 0341 Blood gas panel, venous STAT Final result MARI LADD 02/20/24 0341 CBC w/diff STAT Final result MARI LADD 02/20/24 0341 BMP STAT Final result MARI LADD 02/20/24 0305 ECG Adult Once Preliminary result TAWANNA PHIPPS ED Course as of 02/20/24 0611 Sun Feb 20, 2024 0320 On initial evaluation, patient hemodynamically stable, saturating 100% on room air. Patient's nasal cannula is in place, however oxygen is not turned on. Patient does intermittently wear 2 L at home for which he is prescribed for his COPD. Patient appears anxious. [MR] 0341 ECG Adult NSR with rate of 93, no QTC prolongation, no significant ST elevation/depressions or evidence of acute ischemia. [MR] 0520 pCO2, Venous: 50 [MR] 0520 Lactate: 1.2 [MR] 0520 Creatinine(!): 2.93 Improved from 2 weeks prior [MR] 0520 Potassium(!): 5.6 Asymptomatic hyperkalemia without EKG changes [MR] ED Course User Index [MR] Mari Ladd MD Clinical Impressions as of 02/20/24 0611 Anxiety about health COPD without exacerbation (CMS/HCC) Uncontrolled type 2 diabetes mellitus with hyperglycemia (CMS/HCC) Social Determinates of Health Risks (including Economic Stability, Education and level of understanding, Healthcare access and quality and concerning social factors): None identified on this visit Ultimately, this patient was Was discharged Home (Discharge) The primary encounter diagnosis was Anxiety about health. Diagnoses of COPD without exacerbation (CMS/HCC) and Uncontrolled type 2 diabetes mellitus with hyperglycemia (CMS/HCC) were alsopertinent to this visit. Patient was counseled on the diagnoses. Discharge medications if any are listed below. Listed medications are thought be either curative for listed diagnoses or will help control ongoing symptoms. Patient is requested to follow up with Patient's Primary Care Provider in order to obtain routine follow-up. Instructions on follow up as well as precautions to return to the ERprovided verbally by the EM provider, as well as written in patients discharge education packet. ED Prescriptions None Discharge Instructions Continue your medications as prescribed. At this time, there is no concern for COPD exacerbation asyou where not requiring oxygen. You may be suffering from anxiety with regards to your health. Follow-up with your primary care provider in the next 3 days for further management of these conditions.Please return to ED if your symptoms worsen, change in location, change in severity, new symptoms develop or if you become concerned for your health. Disposition Discharge - Mari Ladd MD Resident 02/20/24611 Cosigned by Tawanna Phipps MD at 02/20/2024 6:34 AM EST Associated attestation - Tawanna Phipps MD - 02/20/2024 6:34 AM EST I saw and evaluated the patient with the resident/fellow. I discussed the case with the resident/fellow and agree with the findings and plan as documented. * ED Triage Notes - Juliette Guido RN - 02/20/2024 2:58 AM EST Pt arrives via EMS from home. Per EMS, pt was experiencing SOA & anxiety. Pt was 100% on RA, EMS placed on 2L NC for comfort. EMS reports pt anxiety resolved in route. Pt denies any pain/complaints in triage. documented in this encounter Plan of Treatment Upcoming Encounters Date Type Department Care Team (Late st Contact Info) Description 03/07/2024 1:40 PM EST Office Visit [facility] [address] [facility] [address], [address] [place] [address] Naeem Blunt MD [address] [place] [address] documented as of this encounter Procedures Procedure Name Priority Date/Time Associated Diagnosis Comments EXTRA TUBE RED TOP Routine 02/20/2024 4: 29 AM EST EXTRA TUBES Routine 02/20/2024 4:29 AM EST CBC WITH AUTO DIFFERENTIAL STAT 02/20/2024 4:15 AM EST BLOOD GAS PANEL, VENOUS STAT 02/20/2024 4:15 AM EST BASIC METABOLIC PANEL, PLASMA STAT 02/20/2024 4:15 AM EST ECG ADULT STAT 02/20/2024 3:15 AM EST documented in this encounter Results * Red Top (02/20/2024 4:29 AM EST) Extra Hold for add-ons 02/20/2024 7:01 AM EST [facility] Comment:Auto resulted. Blood Venous blood specimen / Unknown 02/20/2024 4:29 AM EST 02/20/2024 4:29 AM EST us Tawanna Phipps MD LAB BLOOD ORDERABLES Final Re sult [facility] [address] [place] [address] * (ABNORMAL) BMP (02/20/2024 4:15 AM EST) Glucose, Plasma 190(H) 74 - 99 mg/dL 02/20/2024 5:08 AM EST [facility] BUN, Plasma 44(H) 7 - 21 mg/dL 02/20/2024 5:08 AM EST [facility] Creatinine, Plasma 2.93(H) 0.70 - 1.20 mg/dL 02/20/2024 5:08 AM EST [facility] BUN/Creatinine Ratio 15 02/20/2024 5:08 AM EST [facility] Sodium, Plasma 138 136 - 145 mmol/L 02/20/2024 5:08 AM EST [facility] Potassium, Plasma 5.6(H) 3.6 - 4.9 mmol/L 02/20/2024 5:08 AM EST [facility] Chloride, Plasma 102 97 - 107 mmol/L 02/20/2024 5:08 AM EST [facility] CO2, Plasma 25 22 - 29 mmol/L 02/20/2024 5:08 AM EST [facility] Anion Gap 11 6 - 16 mmol/L 02/20/2024 5:08 AM EST [facility] Total Calcium, Plasma 9.2 8.9 - 10.2 mg/dL 02/20/2024 5:08 AM EST [facility] eGFRcr 24.3 mL/min/1.7 3m*2 02/20/2024 5:08 AM EST [facility] Comment:Reported eGFRcr in m L/min/1.73m2 is based the CKD-EPI 2020 equation that does not use a race coefficient. Blood Venous blood specimen / Unknown Venipuncture / Unknown 02/20/2024 4:15 AM EST 02/20/2024 4:39 AM EST us Tawanna Phipps MD LAB BLOOD ORDERABLES Final Re sult [facility] [address] [place] [address] * (ABNORMAL) CBC w/diff (02/20/2024 4:15 AM EST) WBC Count 4.44 3.70 - 10.30 10*3/uL LAB HEMATOLOGY METHOD 02/20/2024 4:30 AM EST [facility] RBC Count 4.85 4.60 - 6.10 10*6/uL LAB HEMATOLOGY METHOD 02/20/2024 4:30 AM EST [facility] HGB 12.8(L) 13.7 - 17.5 g/dL LAB HEMATOLOGY METHOD 02/20/2024 4:30 AM EST [facility] HCT 41.3 40.0 - 51.0 % LAB HEMATOLOGY METHOD 02/20/2024 4:30 AM [facility] Platelet Count 193 155 - 369 10*3/uL LAB HEMATOLOGY METHOD 02/20/2024 4:30 AM EST [facility] MCV 85 79 - 98 fL LAB HEMATOLOGY METHOD 02/20/2024 4:30 AM EST [facility] MCH 26.4 26.0 - 32.0 pg LAB HEMATOLOGY METHOD 02/20/2024 4:30 AM EST [facility] MCHC 31.0 30.7 - 35.5 g/dL LAB HEMATOLOGY METHOD 02/20/2024 4:30 AM [facility] RDW 18.1(H) 11.5 - 14.5 % LAB HEMATOLOGY METHOD 02/20/2024 4:30 AM EST [facility] MPV 11.0 8.8 - 12.5 fL LAB HEMATOLOGY METHOD 02/20/2024 4:30 AM [facility] nRBC 0.0 <=0.0 per 100 WBCs LAB HEMATOLOGY METHOD 02/20/2024 4:30 AM [facility] Differential Type Automated LAB HEMATOLOGY METHOD 02/20/2024 4:30 AM [facility] Neutrophils % 68 % LAB HEMATOLOGY METHOD 02/20/2024 4:30 AM [facility] Lymphocytes % 23 % LAB HEMATOLOGY METHOD 02/20/2024 4:30 AM [facility] Monocytes % 7 % LAB HEMATOLOGY METHOD 02/20/2024 4:30 AM [facility] Eosinophils % 1 % LAB HEMATOLOGY METHOD 02/20/2024 4:30 AM [facility] Basophils % 1 % LAB HEMATOLOGY METHOD 02/20/2024 4:30 AM [facility] Immature Granulocytes % 0 % LAB HEMATOLOGY METHOD 02/20/2024 4:30 AM [facility] Neutrophils Absolute 3.02 1.60 - 6.10 10*3/uL LAB HEMATOLOGY METHOD 02/20/2024 4:30 AM [facility] Lymphocytes Absolute 1.01(L) 1.20 - 3.90 10*3/uL LAB HEMATOLOGY METHOD 02/20/2024 4:30 AM EST [facility] Monocytes Absolute 0.31 0.30 - 0.90 10*3/uL LAB HEMATOLOGY METHOD 02/20/2024 4:30 AM EST [facility] Eosinophils Absolute 0.06 0.00 - 0.50 10*3/uL LAB HEMATOLOGY METHOD 02/20/2024 4:30 AM EST [facility] Basophils Absolute 0.03 0.00 - 0.10 10*3/uL LAB HEMATOLOGY METHOD 02/20/2024 4:30 AM EST [facility] Immature Granulocytes Absolute 0.01 0.00 - 0.06 10*3/uL LAB HEMATOLOGY METHOD 02/20/2024 4:30 AM EST [facility] Blood Venous blood specimen / Unknown Venipuncture / Unknown 02/20/2024 4:15 AM EST 02/20/2024 4:28 AM EST Narrative [facility] - 02/20/2024 4:30 AM EST Therapeutic decision making should be based on absolute values, rather than percentages. us Tawanna Phipps MD LAB BLOOD ORDERABLES Final Re sult [facility] [address] [place] [address] * (ABNORMAL) Blood gas panel, venous (02/20/2024 4:15 AM EST) pH, Venous 7.35 7.32 - 7.43 LAB HEMATOLOGY METHOD 02/20/2024 4:42 AM EST [facility] pCO2, Venous 50 40 - 55 mmHg LAB HEMATOLOGY METHOD 02/20/2024 4:42 AM EST [facility] pO2, Venous 17(L) 25 - 40 mmHg LAB HEMATOLOGY METHOD 02/20/2024 4:42 AM EST [facility] SO2, Measured, Venous 14(L) 65 - 80 % LAB HEMATOLOGY METHOD 02/20/2024 4:42 AM EST [facility] Base Excess, Venous 1.5 -2.0 - 3.0 mmol/L LAB HEMATOLOGY METHOD 02/20/2024 4:42 AM EST [facility] [facility] Bicarbonate, Calculated, Venous 28(H) 22 - 26 mmol/L LAB HEMATOLOGY METHOD 02/20/2024 4:42 AM EST [facility] Hematocrit, Whole Blood 39.7(L) 40.0 - 51.0 % LAB HEMATOLOGY METHOD 02/20/2024 4:42 AM EST [facility] Sodium, Whole Blood 141 136 - 145 mmol/L LAB HEMATOLOGY METHOD 02/20/2024 4:42 AM EST [facility] Potassium, Whole Blood 5.4(H) 3.6 - 4.9 mmol/L LAB HEMATOLOGY METHOD 02/20/2024 4:42 AM EST [facility] Chloride, Whole Blood 104 97 - 107 mmol/L LAB HEMATOLOGY METHOD 02/20/2024 4:42 AM EST [facility] Glucose, Whole Blood 186(H) 74 - 99 mg/dL LAB HEMATOLOGY METHOD 02/20/2024 4:42 AM EST [facility] Lactate, Venous, Whole Blood 1.2 0.5 - 2.2 mmol/L LAB HEMATOLOGY METHOD 02/20/2024 4:42 AM EST [facility] Ionized Calcium, Whole Blood 4.7 4.6 - 5.1 mg/dL LAB HEMATOLOGY METHOD 02/20/2024 4:42 AM EST [facility] Blood Venous blood specimen / Unknown Venipuncture / Unknown 02/20/2024 4:15 AM EST 02/20/2024 4:40 AM EST us Tawanna Phipps MD LAB BLOOD ORDERABLES Final Re sult [facility] [address] [place] [address] * ECG Adult (02/20/2024 3:15 AM EST) EKG DIAGNOSIS CLASS Abnormal MUSE ECG Ventricular Rate 93 BPM MUSE ECG Atrial Rate 93 BPM MUSE ECG AL Interval 160 ms MUSE ECG QRSD Interval 116 ms MUSE ECG QT Interval 386 ms MUSE ECG QTC Interval 479 ms MUSE ECG P [place] 48 degrees MUSE ECG R [place] -28 degrees MUSE ECG T Wave [place] 123 degrees MUSE ECG Diagnosis Normal sinus rhythm MUSE ECG Diagnosis Minimal voltage criteria for LVH, may be normal variant ( [employer] product ) with repolarization abnormality MUSE ECG Diagnosis Poor R-wave progression MUSE ECG Diagnosis Abnormal ECG MUSE ECG Diagnosis MUSE ECG Diagnosis Confirmed by Ayo Joyner ([id number]) on 02/20/2024 12:59:07 PM MUSE ECG 02/20/2024 3:15 AM EST 02/20/2024 12:59 PM EST us Tawanna Phipps MD ECG ORDERABLES Final Result MUSE ECG documented in this encounter Visit Diagnoses Diagnosis Anxiety about health- Primary COPD without exacerbation (CMS/HCC) Uncontrolled type 2 diabetes mellitus with hyperglycemia (CMS/HCC) documented in this encounter Administered Medications Inactive Administered Medications - up to 3 most recent administrations Medication Order MAR Action Action Date Dose Rate Site LORazepam (Ativan) tablet 1 mg 1 mg, Oral, Once, 1 dose, On 02/20/24 at 0345, STAT Given 02/20/2024 4:14 AM EST 1 mg documented in this encounter Active and Recently Administered Medications Times are shown in EST. Scheduled Medication Order 02/18/2024 02/19/2024 02/20/2024 LORazepam (Ativan) tablet 1 mg (COMPLETED) 1 mg, Oral, Once, 1 dose, On 02/20/24 at 0345, STAT 0414 (Given - Provid er: Juliette Guido RN) documented in this encounter Additional Health Concerns Infection Onset Date Last Indicated Resolved Time MRSA Comment:Positive blood culture 03/03/2019 01/30/2024 Assessment Noted Time A Body Mass Index follow-up plan has been documented for the patient 02/05/2024 9:34 AM EST documented as of this encounter Care Teams Web Assistant Relationship Specialty Start Date End Date Pcp, Ebony [address] [place] [address] PCP - General Family Medicine 01/30/24 Ceci Greene LPN [employer] [place] [address] TCM Nurse 02/07/24 03/08/24 documented as of this encounter
--- OUTSIDE RECORDS SUMMARY | 2024-02-23 18:55 | XMS_ITS | Encounter Summary ---
Author Organization [facility] Address [address] [place] [address] Care Team Providers Care Ice Cream Man Name Role Phone Pcp, No Primary Care Provider Unavailabl e Encounter Details Date Type Department Care Team (Latest Contact Info) Description 02/01/2024 Travel Social History Tobacco Use Types Packs/Day [...] place to sleep or slept in a fdc (including now)? No 02/01/2024 CAGE ASSESSMENT Answer [...] drink first t erin in the morning ([employer]) to steady your nerves or to get [...] Upcoming Encounters Date Type Department Care Team ([facility] st Contact Info) Description 03/07/2024 1:40 PM EST Office Visit [facility] [address] [facility], [address] [place] [address] Naeem Blunt MD [address] [place] [address] documented as of this encounter Visit Diagnoses Not on filedocumented in this encounter Additional Health Concerns Infection Onset Date Last Indicated Resolved Time MRSA Comment:Positive blood culture 03/03/2019 01/30/2024 MRSA Escalation Plan Comment:MRSA Escalation Plan is in effect as of 12/30/2023. Patient will require contact precautions for the duration of the hospital admission, regardless of movement to another unit. This infection may be resolved upon discharge from the hospital. 02/01/2024 02/01/20242023 5:23 AM EST Assessment Noted Time A Body Mass Index follow-up plan has been documented for the patient 02/05/2024 9:34 AM EST documented as of this encounter Care Teams Ice Cream Man Relationship Specialty Start Date End Date [place] [address] PCP - General Family Medicine 01/30/24 documented as of this encounter
--- OUTSIDE RECORDS SUMMARY | 2024-02-23 18:55 | XMS_ITS | Encounter Summary ---
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 Phone Pcp, No Primary Care Provider Unavailabl e Reason for Referral * Consultation (Routine) - Authorized Specialty Diagnoses / Procedures Referred By Contac t Referred To Contact Primary Care Diagnoses Acute on chronic systolic congestive heart failure (CMS/HCC) Dustin Barakat MD [address] [place] [address] Phone: tel: fax: [address] [address] Phone: tel: Referral ID Status Reason Start Date Expiration Date Visits Requested Visits Authorized [id number] Authorized Specialty Services Required 02/04/2024 08/05/2025 1 1 * Home Health (Routine) - Authorized Specialty Diagnoses / Procedures Referred By Contac t Referred To Contact Home Health Services / Cardiology Diagnoses Acute on chronic systolic congestive heart failure (CMS/HCC) Darrin Griffin MD [address] [place] [address] Phone: tel: fax: Referral ID Status Reason Start Date Expiration Date Visits Requested Visits Authorized [id number] Authorized Specialty Services Required 02/03/2024 08/04/2025 999 999 Reason for Visit * Reason Comments Shortness of Breath * Auth/Cert (Routine) Specialty Diagnoses / Procedures Referred By Neno t Referred To Contact Diagnoses Heart failure ([facility]) Darrin Griffin MD [address] [place] [address] Phone: tel: fax: [facility] Inpatient [address] [place] [address] Phone: tel: Referral ID Status Reason Start Date Expiration Date Visits Re quested Visits Authorized [id number] 1 1 Encounter Details Date Type Department Care Team (Latest Contact Info) Description 01/30/2024 8:34 AM EST - 02/05/2024 10:23 AM EST Hospital Encounter [facility] Inpatient [address] [place] [address] Carmencita Slaughter MD [address] [place] [address] Darrin Griffin MD [address] [place] [address] Dustin Barakat MD [address] [place] [address] Acute on chronic systolic congestive heart failure ([facility]) (Primary Dx); Acute decompensated heart failure ([facility]) Discharge Disposition: Home or Self Care Social [...] place to sleep or slept in a group home (including now)? 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 0 02/05/2023 CAGE Questionnaire Score 0 023 Utilities Answer Date Recorded In the past 12 months has th e electric, gas, oil, or water [employer] threatened to shut off services in your home? No 02/01/2024 Sex and Gender Information Value Date Recorded Sex Assigned at Not on file Legal Sex Male 8:15 PM EDT Gender Identity Not on file Sexual Orientation Not on file documented as of this encounter Last Filed Vital Signs Vital Sign Reading Time Taken Comments Blood Pressure 110/79 02/05/2024 7:30 AM EST Pulse 78 02/05/2024 7:30 AM EST Temperature 36.6 ??C (97.8 ??F) 02/05/2024 7:30 AM ES T Respiratory Rate 22 02/05/2024 7:30 AM EST Oxygen Saturation 99% 02/05/2024 7:30 AM EST Inhaled Oxygen Concentration - - Weight 85.6 kg (188 lb 11.4 oz) 02/01/2024 5:00 AM EST Height 182.9 cm (6' 0.01 ) 01/31/2024 1 1:16 AM EST Body Mass Index 25.59 01/31/2024 11:16 AM EST documented in this encounter Discharge Instructions * Discharge Instructions* John Phillips MD - 02/05/2024 9:08 AM EST You were admitted with an acute heart failure exacerbation. Moving forward, it is important for youto continue to take all of your medicines and to present to follow up appointments. If you have trouble getting to appointments, please call the office and we can try to arrange for telehealth appointments. It is imperative that you take Bumex 2mg every day to keep fluid off. Weigh yourself everyday, if you notice you're gaining more than 3lb in 1 day or 5lb in 1 week, please take an extra dose of 2mg bumex in the afternoon. You will start taking: Atorvastatin 80mg nightly for cholesterol Hydralazine 25mg three times daily for blood pressure and heart failure Isordil 10mg three times daily for blood pressure and heart failure Semaglutide 0.25 mg weekly for 4 weeks then increase to 0.5mg per week for diabetes and glucose We switched your home insulin dose to 5u every night since we started Semaglutide You will stop taking: Plavix 75mg Losartan 25mg due to hyperkalemia Please follow up in high risk discharge clinic in 1 week for repeat labs to monitor K Please follow up with Dr. Barakat for cardiology in 2-3 weeks for continued management of heart failure. If you cannot make this appointment, please call the office and we can do telehealth. It is important to continue to increase your heart failure medications Please follow up with your PCP close to home for continued management of chronic conditions documented in this encounter Medications at Time [...] day. 90 tablet 1 12/25/2023 glucose blood (RentJuiceuch Ultra Test) test strip Use up to 4 time(s) daily to check blood glucose 100 each 12 02/05/2024 hydrALAZINE (Apresoline) 25 MG tablet Take 1 tablet (25 mg) by mouth 3 (three) times a day. 270 tablet 3 02/05/2024 11/09/202 5 insulin glargine (Lantus SoloStar, Basaglar) 100 UNIT/ML injection pen Inject 5 Units under the skin every night. 15 mL 3 02/05/2024 Insulin Pen Needle (Pen Maquon) 32G X 4 MM misc Use up [...] week. 3 mL 11 02/05/2024 5 Umeclidinium Kremlin (Incruse Ellipta) 62.5 MCG/ACT aerosol powder Inhale 1 Inhalation 1 (one) time each day. 90 each 3 02/05/2024 5 aspirin 81 MG chewable tablet Chew 1 tablet (81 mg) 1 (one) time each day. 30 tablet 11 02/12/2023 4 documented as of this encounter Miscellaneous Notes * Query Clarification Note - Dustin Barakat MD - 02/05/2024 10:23 AM EST Physician Clarification [x] Yes, the diagnosis was present on admission [] No, the diagnosis was not present on admission [] Unable to determine if diagnosis was present on admission This documentation will become part of the patient's medical record. * Discharge Summary - John Phillips MD - 02/05/2024 10:23 AM EST Images from the original note were not included. Hospitalization Admit Date/Time: 01/30/2024 8:34 AM Admitting Attending: Darrin Griffin Discharge Date: 02/05/2024 Discharge Attending Physician: Dustin Barakat MD PCP name and Address: Pcp, Ebony [address] [place] [address] Referring provider name and address: No referring provider defined for this encounter. Chief Concern, Brief History of Present Illness, and Hospital Course Discharge Hospital Course Patient: Robert Hurley Date of Service: 02/05/2024 Admit Date: 01/30/2024 [facility] Day: 6 [facility] Attending Provider: No att. providers found Primary Care Provider: Pcp, No CODE STATUS: Prior Robert Hurley is a 58 y.o. male with Shortness of Breath admitted with Heart failure ([facility]) Inpatient Medication Changes: -2mg bumex daily with additional 2mg PRN for weight gain of more than 3lb in 1 day or 5lb in 1 week -Start atorvastatin 80mg nightly for cholesterol -Start hydralazine 25mg TID for blood pressure and heart failure -Start Isordil 10mg TID for blood pressure and heart failure -Semaglutide 0.25 mg weekly for 4 weeks then increase to 0.5mg per week for diabetes and glucose -Decrease insulin to 5u nightly given we started semaglutide -STOP Taking plavix 75mg -STOP taking losartan due to hyperkalemia Items for Follow-Up After Hospital Discharge: - Please follow up in high risk discharge clinic in 1 week for repeat labs to monitor K - Please follow up with Dr. Barakat for cardiology in 2-3 weeks for continued management of heart failure. Counseled on the necessity of follow up and instructed to call the office for telehealth if unable to find transportation - Please follow up with your PCP close to home for continued management of chronic conditions Full Hospital Course by Problem: Robert Hurley is a 58 y.o. male with significant PMHx of HFrEF (33%) reportedly due to ischemic cardiomyopathy, CAD s/p remote PCI, suspected COPD, CAMACHO cirrhosis, T2DM, CKD4, and prior L AKA who presented to [facility] on 01/30/2024 with worsening shortness of breath secondary to heart failure exacerbation. #HFrEF (33%) presumed 2/2 ischemic cardiomyopathy with acute exacerbation #Acute on chronic hypoxic respiratory failure -Recent discharge from [facility] for similar presentation. Was discharged on Bumex 2mg daily with PRN extra dose for increased swelling. Reports taking Bumex every other day since discharge. Has had progressive SOA -Does not meet requirements for home O2 given saturations >88% on RA, but notes he bought a concentrator from [employer] -Echo from 12/19 with LVEF 33% -Consulted [facility] given history of multiple admissions. Patient determined to not be a candidate for advanced therapy given documented history of noncompliance and other co morbidities. -Diuresed aggressively, anticipate dry weight 188lb END RESULT: -Continue 2mg bumex every day with PRN 2mg if weight gain >3lb in 1 day or >5lb in 1 week. Discussed with patient the importance of continuing to take this medicine daily -GDMT with Metoprolol 50mg, Farxiga 10mg; Start Isordil/Hydralazine due to inability to tolerate MRA/ARNI due to hyperkalemia -Follow up in high risk discharge clinic in 1 week, with home PCP in 1-[address] Barakat in 2-3 weeks -Given patient's inability to make appointments due to travel costs, we counseled that if he cannotmake appointments in person, he should call for a telehealth appointment #Hyperkalemia -K 5.1 on admission, initially required lokelma stable at 4.7 prior to discharge w/o Lokelma END RESULT: -STOP Losartan due to hyperkalemia -Follow up with [facility] for repeat BMP, K in 1 week #CAD -NSTEMI 01/2023, on DAPT PLAN: -continuing ASA -START atorvastatin 80mg at bedtime -STOP Plavix as NSTEMI was medically managed #Suspected COPD -long reported history of COPD though has never had PFTs and 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 Takes Dulera and albuterol outpatient. -Continued Dulera, Spiriva Respimat and albuterol #T2DM -continuing home Farxiga -Start Ozempic 0.24 mg for 4 weeks then increase to 0.5mg -Decrease home insulin regimen to 5u nightly #MASH cirrhosis, compensated -found on ultrasound 2020, no follow-ups since that time, no hx of HE/ascites/EV/SBP/HCC -LFTs elevated, likely due to congestion secondary to heart failure given the improvement after diuresis #CKD4 -Cr appears to be stable when compared to values over the past year -STOP Losartan END RESULT: -Patient should follow up with nephrology outpatient - he has been previously scheduled but unable to make appointment #HTN -Stop Losartan -START Isordil, Hydralazine Surgeries and Procedures Medication List .. albuterol 108 (90 Base) MCG/ACT inhaler Inhale 2 puffs 4 (four) times a day if needed for wheezing. aspirin 81 MG chewable tablet Chew 1 tablet (81 mg) 1 (one) time each day. atorvastatin 80 MG tablet Commonly known as: Lipitor Take 1 tablet (80 mg) by mouth every night. bumetanide 2 MG tablet Commonly known as: Bumex Take 1 tablet (2 mg) by mouth 1 (one) time each day. If you gain more than 3 pounds in 1 day or 5 pounds in 1 week, take one extra dose of 2mg bumex as needed. dapagliflozin 10 MG tablet Commonly known as: Farxiga Take 1 tablet (10 mg) by mouth 1 (one) time each day. hydrALAZINE 25 MG tablet Commonly known as: Apresoline Take 1 tablet (25 mg) by mouth 3 (three) times a day. Incruse Ellipta 62.5 MCG/ACT aerosol powder Generic drug: Umeclidinium Kremlin Inhale 1 Inhalation 1 (one) time each day. insulin glargine 100 UNIT/ML injection pen Commonly known as: Lantus SoloStar, Basaglar Inject 5 Units under the skin every night. isosorbide dinitrate 10 MG tablet Commonly known as: Isordil Take 1 tablet (10 mg) by mouth 3 (three) times a day. Lancets misc Use up to 4 time(s) daily to check blood glucose metoprolol succinate XL 50 MG 24 hr tablet Commonly known as: Toprol-XL Take 1 tablet (50 mg) by mouth 1 (one) time each day. Do not crush or chew. mometasone-formoterol 100-5 MCG/ACT inhaler Commonly known as: Dulera 100 Inhale 2 puffs 2 (two) times a day. Rinse mouth with water after use to reduce aftertaste and incidence of candidiasis. Do not swallow. nitroglycerin 0.4 MG SL tablet Commonly known as: Nitrostat Place 1 tablet (0.4 mg) under the tongue every 5 (five) minutes if needed for chest pain. ocular lubricant 0.2-0.2-1 % solution ophthalmic solution Commonly known as: Artificial Tears Administer 1 drop into both eyes if needed for irritation. ONE TOUCH ULTRA 2 w/Device kit device kit Use as instructed to check blood glucose OneTouch Ultra Test test strip Generic drug: glucose blood Use up to 4 time(s) daily to check blood glucose Pen Maquon 32G X 4 MM misc Use up to 1 time(s) daily to administer insulin with insulin pen. Semaglutide(0.25 or 0.5MG/DOS) 2 MG/3ML solution pen-injector Inject 0.25 mg under the skin 1 (one) time per week for 28 days, THEN 0.5 mg 1 (one) time per week. Start taking on: February 05, 2024 Where to Get Your Medications These medications were sent to [facility] - [place], [place] - [address], [facility] [id number] atorvastatin 80 MG tablet bumetanide 2 MG tablet hydrALAZINE 25 MG tablet Incruse Ellipta 62.5 MCG/ACT aerosol powder insulin glargine 100 UNIT/ML injection pen isosorbide dinitrate 10 MG tablet Lancets misc mometasone-formoterol 100-5 MCG/ACT inhaler ONE TOUCH ULTRA 2 w/Device kit device kit OneTouch Ultra Test test strip Pen Maquon 32G X 4 MM misc Semaglutide(0.25 or 0.5MG/DOS) 2 MG/3ML solution pen-injector Discharge Diagnosis Medical Problems Active and Resolved Hospital Problems Hospital * (Principal) Heart failure ([facility]) Post Discharge Instructions You were admitted with an acute heart failure exacerbation. Moving forward, it is important for youto continue to take all of your medicines and to present to follow up appointments. If you have trouble getting to appointments, please call the office and we can try to arrange for telehealth appointments. It is imperative that you take Bumex 2mg every day to keep fluid off. Weigh yourself everyday, if you notice you're gaining more than 3lb in 1 day or 5lb in 1 week, please take an extra dose of 2mg bumex in the afternoon. You will start taking: Atorvastatin 80mg nightly for cholesterol Hydralazine 25mg three times daily for blood pressure and heart failure Isordil 10mg three times daily for blood pressure and heart failure Semaglutide 0.25 mg weekly for 4 weeks then increase to 0.5mg per week for diabetes and glucose We switched your home insulin dose to 5u every night since we started Semaglutide You will stop taking: Plavix 75mg Losartan 25mg due to hyperkalemia Please follow up in high risk discharge clinic in 1 week for repeat labs to monitor K Please follow up with Dr. Barakat for cardiology in 2-3 weeks for continued management of heart failure. If you cannot make this appointment, please call the office and we can do telehealth. It is important to continue to increase your heart failure medications Please follow up with your PCP close to home for continued management of chronic conditions Outpatient Follow-Up No future appointments. Test Results Pending At Discharge Pertinent Physical Exam At Time of Discharge Physical Exam Vitals reviewed. Constitutional: Appearance: Normal appearance. Comments: Appears older than stated age HENT: Head: Normocephalic and atraumatic. Nose: Nose normal. Mouth/Throat: Mouth: Mucous membranes are moist. Pharynx: Oropharynx is clear. No oropharyngeal exudate. Eyes: Extraocular Movements: Extraocular movements intact. Pupils: Pupils are equal, round, and reactive to light. Cardiovascular: Rate and Rhythm: Normal rate and regular rhythm. Pulses: Normal pulses. Heart sounds: Normal heart sounds. No murmur heard. Pulmonary: Effort: Pulmonary effort is normal. No respiratory distress. Breath sounds: Normal breath sounds. Abdominal: General: Abdomen is flat. Bowel sounds are normal. There is no distension. Palpations: Abdomen is soft. Musculoskeletal: Right lower leg: No edema. Skin: General: Skin is warm and dry. Capillary Refill: Capillary refill takes less than 2 seconds. Coloration: Skin is not jaundiced. Neurological: General: No focal deficit present. Mental Status: He is alert and oriented to person, place, and time. Discharge Disposition/Condition Disposition: Home Condition: Stable (s/sx potential problems absent or manageable) I spent >30 minutes of patient care and instruction time in preparation for this discharge. John Phillips MD Internal Medicine, PGY-1 Pager: [phone] Cosigned by Dustin Barakat MD at 02/12/2024 9:03 PM EST Associated attestation - Dustin Barakat MD - 02/12/2024 9:03 PM EST I saw and evaluated the patient with the resident/fellow. I discussed the case with the resident/fellow and agree with the findings and plan as documented. Patient presenting for his 6th [facility] admission in the setting of medication non compliance and missing his clinic appointments. I had a detailed discussion with him regarding his heart condition and the importance for taking his medications. Our case management team provided him with transportation options for his appointments. * Charlotte Vasquez RN - 02/05/2024 9:33 AM EST Images from the original note were not included. [id number] Hyperkalemia ([place]) Hyperkalemia is a condition caused by too much potassium in the blood. Most often this occurs in persons taking potassium supplements, or those with severe kidney disease. Mild hyperkalemia usually causes no symptoms. It is only discovered with a blood test. As the potassium level rises, symptoms may include weakness, heart palpitations (rapid or irregular heartbeats),nausea, vomiting, or diarrhea. Home care 1. Follow your doctor?s advice about any potassium supplements and diuretics (water pills) you may be taking. 2. Additional prescription medicines may also be given to remove excess potassium. 3. Follow your doctor's orders about diet. You may need to limit the high- potassium food you eat, such as bananas, citrus fruit or tomatoes. Follow up Follow up with your doctor for a repeat blood test within the next 7 days, unless told otherwise. Get medical help right away if you have any of the following ?? Weakness, dizziness ?? Irregular heartbeat, extra beats, very fast or very slow heart rate ?? Fainting spell ?? Nausea, vomiting, or diarrhea ?? Chest, arm, shoulder, neck or upper back pain, or shortness of breath ?? Reduced urination 04/08 ?? [id number] [employer]. All rights reserved. This information is not intended as a substitute for professional medical care. Always follow your healthcare professional's instructions. This information has been modified by your health care provider with permission from the publisher. * Gabbi Starks - Charlotte Cooper RN - 02/05/2024 9:33 AM EST Images from the original note were not included. [id number] Chronic Kidney Disease (CKD) The role of the kidneys is to remove waste products and extra water from the blood. When the kidneys don't work as they should, waste products start to build up in the blood. This is called chronic kidney disease (CKD). CKD means that you have kidney damage or a decrease in kidney function lasting at least 3 months. CKD allows extra water, waste, and toxins to build up in the body. This can eventually become life-threatening. You might need dialysis or a kidney transplant to stay alive. This most severe form is called end-stage renal disease. Diabetes is one of the leading causes of chronic renal failure. Other causes include high blood pressure, hardening of the arteries (atherosclerosis), lupus, inflammation of the blood vessels (vasculitis), and past viral or bacterial infections. Certain laxu-gdi-qhvuaov pain medicines can cause renal failure when taken often over a long period of time. These include aspirin, ibuprofen, and related anti-inflammatory medicines called NSAIDs (nonsteroidal anti- inflammatory drugs). Home care These guidelines will help you care for yourself at home: ?? If you have diabetes, talk with your healthcare provider about keeping your blood sugar under control. Ask if you need to make and changes to your diet, lifestyle, or medicines. ?? If you have high blood pressure: o Take prescribed medicine to lower your blood pressure to the recommended goal of less than 130/80. o Start a regular exercise program that you enjoy. Check with your healthcare provider to be sure your planned exercise program is right for you. o Eat less salt (sodium). Your healthcare provider can tell you how much salt per day is safe for you. ?? If you are overweight, talk with your healthcare provider about a weight loss plan. ?? If you smoke, you must quit. Smoking makes kidney disease worse and puts you at risk for developing other serious illnesses. Talk with your healthcare provider about ways to help you quit. For more information, visit the following links: o www.smokefree.gov/sites/default/files/pdf/wmbepuuv-ewd-jix-accessible.pdf o www.smokefree.gov o www.cancer.org/healthy/stayawayfromtobacco/guidetoquittingsmoking ?? Most people with CKD need to follow a special diet. Make sure you understand yours. In general, you will need to limit protein, salt, potassium, and phosphorus. You also need to limit how much fluid you drink. ?? CKD is a risk factor for heart disease. Talk with your healthcare provider about any other risk factors you might have and what you can do to lessen them. ?? Talk with your healthcare provider about any medicines you are taking to find out if they need to be reduced or stopped. ?? For your own safety, check with your healthcare provider before taking any medicines or supplements. Don't use the following dkoj-kgq-jkamzfq medicines. Or consult your healthcare provider before using them: o Aspirin and NSAIDs such as ibuprofen or naproxen. Using acetaminophen for fever or pain is OK. o Laxatives and antacids containing magnesium or aluminum o Fleet or phospho-soda enemas containing phosphorus o Certain stomach acid-blocking medicine such as cimetidine or ranitidine o Decongestants containing pseudoephedrine o Herbal supplements Follow-up care Follow up with your healthcare provider as advised. Visit these websites to learn more: ?? [place] [employer] at www.aakp.org ?? National Kidney Foundation at www.kidney.org ?? [place] [employer] at www.kidneyfund.org ?? National Kidney Disease Education Program at www.nkdep.nih.gov If an X-ray, ECG (electrocardiogram), or other diagnostic test was taken, you'll be told of any newfindings that may affect your care. Call 911 Call 911 right away if any of these occur: ?? Severe weakness, dizziness, fainting, drowsiness, or confusion ?? Chest pain or shortness of breath ?? Heart beating fast, slow, or irregularly When to get medical advice Call your healthcare provider right away if you have any of these: ?? Upset stomach (nausea) or vomiting ?? Fever of 100.4??F (38??C) or higher, or as advised by your provider ?? Unexpected weight gain or swelling in the legs, ankles, or around the eyes ?? Not peeing a lot, or not peeing at all ?? New symptoms or symptoms that get worse Last Reviewed Date: 2021 00:00:00 ?? [id number] The [employer]. All rights reserved. This information is not intended as a substitute for professional medical care. Always follow your healthcare professional's instructions. * Gabbi ShoemakerFLO - Charlotte Cooper RN - 02/05/2024 9:33 AM EST Images from the original note were not included. [id number] Atorvastatin Brand Name(s): Atorvaliq??, Lipitor??, Caduet?? (as a combination product containing Amlodipine, Atorvastatin), Lipqozet?? (as a combination product containing Atorvastatin, Ezetimibe), Liptruzet?? (as a combination product containing Atorvastatin, Ezetimibe); also available generically WHY is this medicine prescribed? Atorvastatin is used together with diet, weight loss, and exercise to reduce the risk of heart attack and stroke and to decrease the chance that heart surgery will be needed in people who have heart disease or who are at risk of developing heart disease. Atorvastatin is also used to decrease the amount of fatty substances such as low-density lipoprotein (LDL) cholesterol ('bad cholesterol') and triglycerides in the blood and to increase the amount of high-density lipoprotein (HDL) cholesterol ('good cholesterol') in the blood. Atorvastatin may also be used to decrease the amount of cholesterol and other fatty substances in the blood in children and teenagers 10 to 17 years of age who have familial heterozygous hypercholesterolemia (an inherited condition in which cholesterol cannot be removed from the body normally). Atorvastatin is in a class of medications called HMG-CoA reductase inhibitors (statins). It works by slowing the production of cholesterol in the body to decrease the amount of cholesterol that may build up on the taylor of the arteries and block blood flow to the heart,brain, and other parts of the body. Accumulation of cholesterol and fats along the taylor of your arteries (a process known as atherosclerosis) decreases blood flow and, therefore, the oxygen supply to your heart, brain, and other partsof your body. Lowering your blood level of cholesterol and fats with atorvastatin has been shown toprevent heart disease, angina (chest pain), strokes, and heart attacks. HOW should this medicine be used? Atorvastatin comes as a tablet and suspension (liquid) to take by mouth. The tablet is usually taken once a day with or without food. The suspension is usually taken once a day on an empty stomach (at least 1 hour before or 2 hours after a meal).Take atorvastatin at around the same time every day. Follow the directions on your prescription label carefully, and ask your doctor or pharmacist to explain any part you do not understand. Take atorvastatin exactly as directed. Do not take more or lessof it or take it more often than prescribed by your doctor. Your doctor may start you on a low dose of atorvastatin and gradually increase your dose, not more than once every 2 to 4 weeks. If you are taking the suspension, do not use a household spoon to measure your dose. Use a properlymarked measuring device such as a medicine spoon or oral syringe. Ask your doctor or pharmacist if you need help getting or using a measuring device. Continue to take atorvastatin even if you feel well. Do not stop taking atorvastatin without talking to your doctor. Are there OTHER USES for this medicine? This medication may be prescribed for other uses; ask your doctor or pharmacist for more information. What SPECIAL PRECAUTIONS should I follow? Before taking atorvastatin, ?? tell your doctor and pharmacist if you are allergic to atorvastatin, any other medications, or any of the ingredients in atorvastatin tablets and suspension. Ask your pharmacist for a list of the ingredients. ?? Tell your doctor and pharmacist what prescription and nonprescription medications, vitamins, nutritional supplements, and herbal products you are taking or plan to take while taking atorvastatin. Your doctor may need to change the doses of your medications or monitor you carefully for side effects. ?? The following nonprescription products may interact with atorvastatin: cimetidine (Tagamet), andniacin. Be sure to let your doctor and pharmacist know that you are taking these medications beforeyou start taking atorvastatin. Do not start any of these medications while taking atorvastatin without discussing with your healthcare provider. ?? tell your doctor if you have or ever had liver disease. Your doctor will order laboratory tests to see how well your liver is working even if you do not think you have liver disease. Your doctor will probably tell you not to take atorvastatin if you have liver disease or if the tests show you may be developing liver disease. ?? tell your doctor if you drink more than 2 alcoholic beverages daily, if you are 65 years of age or older, and if you have or have ever had muscle aches or weakness, diabetes, seizures, low blood pressure, or thyroid or kidney disease. ?? tell your doctor if you are or plan to become . If you become while taking atorvastatin, stop taking atorvastatin and call your doctor immediately. Atorvastatin may harm the fetus. ?? tell your doctor if you are or plan to breastfeed. You should not breastfeed whileyou are taking this medication. ?? if you are having surgery, including dental surgery, tell the doctor or dentist that you are taking atorvastatin. If you are hospitalized due to serious injury or infection, tell the doctor who treats you that you are taking atorvastatin. ?? ask your doctor about the safe use of alcoholic beverages while you are taking atorvastatin. Alcohol can increase the risk of serious side effects. What SPECIAL DIETARY instructions should I follow? Eat a low-fat, low-cholesterol diet. Be sure to follow all exercise and dietary recommendations made by your doctor or dietitian. You can also visit the National Cholesterol Education Program (NCEP) website for additional dietary information at https://www.nhlbi.nih.gov/health/public/heart/chol/chol_tlc.pdf. Avoid drinking large amounts [more than 1.2 liter (approximately 1 quart) per day] of grapefruit juice while taking atorvastatin. What should I do IF I FORGET to take a dose? If you miss a dose of the tablet, skip the missed dose and continue your regular dosing schedule. Do not take a double dose to make up for a missed one. If you miss a dose of the suspension, take the missed dose as soon as you remember it. However, if it is less than 12 hours until your next scheduled dose, skip the missed dose and continue your regular dosing schedule. Do not take a double dose to make up for a missed one. What SIDE EFFECTS can this medicine cause? Atorvastatin may cause side effects. Tell your doctor if any of these symptoms are severe or do notgo away: ?? diarrhea ?? heartburn ?? gas ?? joint pain ?? forgetfulness or memory loss ?? confusion Some side effects can be serious. The following symptoms are uncommon, but if you experience any ofthem, call your doctor or get emergency medical help immediately: ?? muscle pain, tenderness, or weakness ?? lack of energy ?? fever ?? chest pain ?? nausea ?? extreme tiredness ?? weakness ?? unusual bleeding or bruising ?? loss of appetite ?? pain in the upper right part of the stomach ?? flu-like symptoms ?? dark colored urine ?? yellowing of the skin or eyes ?? rash ?? hives ?? itching ?? difficulty breathing or swallowing ?? swelling of the face, throat, tongue, lips, eyes, hands, feet, ankles, or lower legs ?? hoarseness Atorvastatin may cause other side effects. Call your doctor if you have any unusual problems while taking this medication. If you experience a serious side effect, you or your doctor may send a report to the Food and Drug Administration's (FDA) MedWatch Adverse Event Reporting program online (https://www.fda.gov/Safety/MedWatch) or by phone ( ). What should I know about STORAGE and DISPOSAL of this medication? Keep this medication in the container it came in, tightly closed, and out of reach of children. Store it at room temperature and away from excess heat and moisture (not in the bathroom). Unneeded medications should be disposed of in special ways to ensure that pets, children, and otherpeople cannot consume them. However, you should not flush this medication down the toilet. Instead,the best way to dispose of your medication is through a medicine take-back program. Talk to your pharmacist or contact your local garbage/recycling department to learn about take-back programs in your community. See the FDA's Safe Disposal of Medicines website (https://goo.gl/c4Rm4p) for more information if you do not have access to a take-back program. It is important to keep all medication out of sight and reach of children as many containers (such as weekly pill minders and those for eye drops, creams, patches, and inhalers) are not child-resistant and young children can open them easily. To protect young children from poisoning, always lock safety caps and immediately place the medication in a safe location - one that is up and away and out of their sight and reach. https://www.upandaway.org What should I do in case of OVERDOSE? In case of overdose, call the poison control helpline at . Information is also available online at https://www.poisonhelp.org/help. If the victim has collapsed, had a seizure, has trouble breathing, or can't be awakened, immediately call emergency services at [phone]. What OTHER INFORMATION should I know? Keep all appointments with your doctor and the laboratory. Your doctor may order certain lab tests during your treatment , especially if you develop symptoms of liver damage. Before having any laboratory test, tell your doctor and the laboratory personnel that you are taking atorvastatin. Do not let anyone else take your medication. Ask your pharmacist any questions you have about refilling your prescription. It is important for you to keep a written list of all of the prescription and nonprescription (kgyr-onb-rszksik) medicines you are taking, as well as any products such as vitamins, minerals, or otherdietary supplements. You should bring this list with you each time you visit a doctor or if you areadmitted to a hospital. It is also important information to carry with you in case of emergencies. This report on medications is for your information only, and is not considered individual patient advice. Because of the changing nature of drug information, please consult your physician or pharmacist about specific clinical use. The [place] [employer] represents that the information provided hereunder was formulated with a reasonable standard of care, and in conformity with professional standards in the field. The [place] [employer] makes no representations or warranties, express or implied, including, but not limited to, any implied warranty of merchantability and/or fitness for a particular purpose, with respect to such information and specifically disclaims all such warranties. Users are advised that decisions regarding drug therapy are complex medical decisions requiring the independent, informed decision of an appropriate health child care associate, and the information is provided for informational purposes only. The entire monograph for a drug should be reviewed for a thorough understanding of the drug's actions, uses and side effects. The [place] [employer] does not endorse or recommend the use of any drug.The information is not a substitute for medical care. AHFS?? Patient Medication Information?. ?? Copyright, 2023. The [place]??, [address], [address], [place], [place]. All Rights Reserved. Duplication for commercial use must be authorized by [facility]. Selected Revisions: October 16, 2023. AHFS?? Patient Medication Information?. ?? Copyright, 2023 * Gabbi Starks - Charlotte Cooper RN - 02/05/2024 9:32 AM EST Images from the original note were not included. [id number] Isosorbide Brand Name(s): Dilatrate??-SR, Imdur??, Ismo??, Ismotic??, Isoditrate??, Isordil??, Monoket??, BiDil?? (as a combination product containing Hydralazine and Isosorbide Dinitrate); also available generically ISDN, ISMN WHY is this medicine prescribed? Isosorbide immediate-release tablets are used for the management of angina (chest pain) in people who have coronary artery disease (narrowing of the blood vessels that supply blood to the heart). Isosorbide extended-release (long- acting) tablets and extended-release capsules are used for the management of chest pain in people who have coronary artery disease. Isosorbide can only be used to prevent angina; it cannot be used to treat an episode of angina once it has begun. Isosorbide is in a class of medications called vasodilators. It works by relaxing the blood vessels so the heart does not need to work as hard and therefore does not need as much oxygen. HOW should this medicine be used? Isosorbide comes as a tablet, an extended-release (long-acting) tablet, and an extended-release capsule to take by mouth. The tablet usually is taken two or three times daily. The extended-release tablet usually is taken once daily in the morning. The extended-release capsule usually is taken once daily. Swallow the extended-release tablets or capsules whole; do not crush, chew, or divide them. Follow the directions on your prescription label carefully, and ask your doctor or pharmacist to explain any part you do not understand. Take isosorbide exactly as directed. Do not take more or less of it ortake it more often than prescribed by your doctor. Isosorbide controls chest pain but does not cure coronary artery disease. Continue to take isosorbide even if you feel well. Do not stop taking isosorbide without talking to your doctor. Isosorbide may not work as well after you have taken it for some time or if you have taken many doses. Your doctor will schedule your doses so that there is a period of time every day when you are not exposed to isosorbide. If your chest pain attacks happen more often, last longer, or become more severe at any time during your treatment, call your doctor. Are there OTHER USES for this medicine? Isosorbide tablets are also used with other medications to treat heart failure. Talk to your doctorabout the possible risks of using this medication for your condition. This medication is sometimes prescribed for other uses; ask your doctor or pharmacist for more information. What SPECIAL PRECAUTIONS should I follow? Before taking isosorbide, ?? tell your doctor and pharmacist if you are allergic to isosorbide; nitroglycerin tablets, patches, or ointment; any other medications, or any of the ingredients in isosorbide tablets, extended-release tablets, or extended- release capsules. Ask your pharmacist for a list of the ingredients. ?? some medications should not be taken with isosorbide. Other medications may cause dosing changesor extra monitoring when taken with isosorbide. Make sure you have discussed any medications you are currently taking or plan to take before starting isosorbide with your doctor and pharmacist. Before starting, stopping, or changing any medications while taking isosorbide, please get the advice of your doctor or pharmacist. ?? tell your doctor if you may be dehydrated, if you have recently had a heart attack, or if you have or have ever had heart failure, low blood pressure, or hypertrophic cardiomyopathy (thickening ofthe heart muscles). ?? tell your doctor if you are , plan to become , or are breast- feeding. If you become while taking isosorbide, call your doctor. ?? if you are having surgery, including dental surgery, tell the doctor or dentist that you are taking isosorbide. ?? ask your doctor about the safe use of alcoholic beverages while you are taking isosorbide. Alcohol can make the side effects from isosorbide worse. ?? you should know that isosorbide may cause dizziness, lightheadedness, and fainting when you get up too quickly from a lying position, or at any time, especially if you have been drinking alcoholicbeverages. To avoid this problem, get up slowly, resting your feet on the floor for a few minutes before standing up. Take extra precautions to avoid falling during your treatment with isosorbide. ?? you should know that you may experience headaches every day during your treatment with isosorbide. These headaches may be a sign that the medication is working as it should. Do not try to change the times or the way that you take isosorbide in order to avoid headaches because then the medicationmay not work as well. Your doctor may tell you to take a pain reliever to treat your headaches. What SPECIAL DIETARY instructions should I follow? Unless your doctor tells you otherwise, continue your normal diet. What should I do IF I FORGET to take a dose? Take the missed dose as soon as you remember it. However, if it is almost time for the next dose, skip the missed dose and continue your regular dosing schedule. Do not take a double dose to make up for a missed one. What SIDE EFFECTS can this medicine cause? Isosorbide may cause side effects. Tell your doctor if any of these symptoms or those listed in theSPECIAL PRECAUTIONS section are severe or do not go away: ?? nausea Some side effects can be serious. If you experience any of these symptoms, call your doctor immediately or get emergency medical treatment: ?? worsening chest pain ?? rash ?? hives ?? itching ?? difficulty breathing or swallowing Isosorbide may cause other side effects. Call your doctor if you have any unusual problems while you are taking this medication. If you experience a serious side effect, you or your doctor may send a report to the Food and Drug Administration's (FDA) MedWatch Adverse Event Reporting program online (https://www.fda.gov/Safety/MedWatch) or by phone ( ). What should I know about STORAGE and DISPOSAL of this medication? Keep this medication in the container it came in, tightly closed, and out of reach of children. Store it at room temperature and away from excess heat and moisture (not in the bathroom). It is important to keep all medication out of sight and reach of children as many containers (such as weekly pill minders and those for eye drops, creams, patches, and inhalers) are not child-resistant and young children can open them easily. To protect young children from poisoning, always lock safety caps and immediately place the medication in a safe location - one that is up and away and out of their sight and reach. https://www.[employer].org Unneeded medications should be disposed of in special ways to ensure that pets, children, and otherpeople cannot consume them. However, you should not flush this medication down the toilet. Instead,the best way to dispose of your medication is through a medicine take-back program. Talk to your pharmacist or contact your local garbage/recycling department to learn about take-back programs in your community. See the FDA's Safe Disposal of Medicines website (https://goo.gl/c4Rm4p) for more information if you do not have access to a take-back program. What should I do in case of OVERDOSE? In case of overdose, call the poison control helpline at . Information is also available online at https://www.poisonhelp.org/help. If the victim has collapsed, had a seizure, has trouble breathing, or can't be awakened, immediately call emergency services at 911. Symptoms of overdose may include: ?? headache ?? confusion ?? fever ?? dizziness ?? slow or pounding heartbeat ?? nausea ?? vomiting ?? bloody diarrhea ?? fainting ?? shortness of breath ?? sweating ?? flushing ?? cold, clammy skin ?? loss of ability to move the body ?? coma (loss of consciousness for a period of time) ?? seizures What OTHER INFORMATION should I know? Keep all appointments with your doctor. Do not let anyone else take your medication. Ask your pharmacist any questions you have about refilling your prescription. It is important for you to keep a written list of all of the prescription and nonprescription (fhgk-zds-ojxymku) medicines you are taking, as well as any products such as vitamins, minerals, or otherdietary supplements. You should bring this list with you each time you visit a doctor or if you areadmitted to a hospital. It is also important information to carry with you in case of emergencies. This report on medications is for your information only, and is not considered individual patient advice. Because of the changing nature of drug information, please consult your physician or pharmacist about specific clinical use. The [place] [employer] represents that the information provided hereunder was formulated with a reasonable standard of care, and in conformity with professional standards in the field. [employer] [place] [employer] makes no representations or warranties, express or implied, including, but not limited to, any implied warranty of merchantability and/or fitness for a particular purpose, with respect to such information and specifically disclaims all such warranties. Users are advised that decisions regarding drug therapy are complex medical decisions requiring the independent, informed decision of an appropriate health child care associate, and the information is provided for informational purposes only. The entire monograph for a drug should be reviewed for a thorough understanding of the drug's actions, uses and side effects. The [place] [employer] does not endorse or recommend the use of any drug.The information is not a substitute for medical care. AHFS?? Patient Medication Information?. ?? Copyright, 2023. The [place] [employer]??, [address], [address], [place], [place]. All Rights Reserved. Duplication for commercial use must be authorized by [facility]. Selected Revisions: December 11, 2018. AHFS?? Patient Medication Information?. ?? Copyright, 2023 * Gabbi Starks - Charlotte Cooper RN - 02/05/2024 9:32 AM EST Images from the original note were not included. [id number] Semaglutide Injection Brand Name(s): Ozempic??, Wegovy?? IMPORTANT WARNING: Semaglutide injection may increase the risk that you will develop tumors of the thyroid gland, including medullary thyroid carcinoma (MTC; a type of thyroid cancer). Laboratory animals who were givensemaglutide developed tumors, but it is not known if this medication increases the risk of tumors in humans. Tell your doctor if you or anyone in your family has or has ever had MTC or Multiple Endocrine Neoplasia syndrome type 2 (MEN 2; condition that causes tumors in more than one gland in the body). If so, your doctor will probably tell you not to use semaglutide injection. If you experience any of the following symptoms, call your doctor immediately: a lump or swelling in the neck; hoarseness; difficulty swallowing; or shortness of breath. Keep all appointments with your doctor and the laboratory. Your doctor may order certain tests to check your body's response to semaglutide injection. Your doctor or pharmacist will give you the commercial project manager's patient information sheet (Medication Guide) when you begin treatment with semaglutide injection and each time you refill your prescription.Read the information carefully and ask your doctor or pharmacist if you have any questions. You canalso visit the Food and Drug Administration (FDA) website (https://www.fda.gov/Drugs/DrugSafety/ucm0 68469.htm) or the commercial project manager's website to obtain the Medication Guide. Talk to your doctor about the risks of using semaglutide injection. WHY is this medicine prescribed? Semaglutide injection (Ozempic) is used along with a diet and exercise program to control blood sugar levels in adults with type 2 diabetes (condition in which the body does not use insulin normally and therefore cannot control the amount of sugar in the blood) when other medications did not control the sugar levels well enough. Semaglutide injection (Ozempic) is also used to reduce the risk of astroke, heart attack, or in adults who have type 2 diabetes along with heart and blood vesseldisease. It is not used to treat type 1 diabetes (condition in which the body does not produce insulin and therefore cannot control the amount of sugar in the blood) or diabetic ketoacidosis (a serious condition that may develop if high blood sugar is not treated). Semaglutide injection is not usedinstead of insulin to treat people with diabetes who need insulin. Semaglutide injection (Wegovy) is used to reduce the risk of a stroke, heart attack, or in adults who are overweight or obese along with heart and blood vessel disease. Semaglutide injection (Wegovy) is used along with an individualized low-calorie, low-fat diet and exercise program to help with weight loss in obese adults or overweight adults who may also have high blood pressure, diabetes, or high cholesterol. Semaglutide injection (Wegovy) is also used along with an individualized low-calorie, low-fat diet and exercise program to help with weight loss in obese children 12 years of age or older. Semaglutide injection is in a class of medications called incretin mimetics. It works by helping the pancreas to release the right amount of insulin when blood sugar levels are high. Insulin helps move sugar from the blood into other body tissues where it is used for energy. Semaglutide injection also works by slowing the movement of food through the stomach and may decrease appetite and cause ady ght loss. Over time, people who have diabetes and high blood sugar can develop serious or life-threatening complications, including heart disease, stroke, kidney problems, nerve damage, and eye problems. Usingmedication(s), making lifestyle changes (e.g., diet, exercise, quitting smoking), and regularly checking your blood sugar may help to manage your diabetes and improve your health. This therapy may also decrease your chances of having a heart attack, stroke, or other diabetes-related complications such as kidney failure, nerve damage (numb, cold legs or feet; decreased sexual ability in men and women), eye problems, including changes or loss of vision, or gum disease. Your doctor and other healthcare providers will talk to you about the best way to manage your diabetes. HOW should this medicine be used? Semaglutide injection comes as a solution (liquid) in a prefilled dosing pen to inject subcutaneously (under the skin). It is usually injected once a week without regard to meals. Use semaglutide injection on the same day each week at any time of day. You may change the day of the week that you usesemaglutide as long as it has been 2 or more days (48 or more hours) since you used your last dose.Follow the directions on your prescription label carefully, and ask your doctor or pharmacist to explain any part you do not understand. Use semaglutide injection exactly as directed. Do not use moreor less of it or use it more often than prescribed by your doctor. Your doctor will probably start you on a low dose of semaglutide injection and increase your dose after 4 weeks. Your doctor may increase your dose again after another 4 weeks based on your body's response to the medication. Semaglutide injection helps to control diabetes and weight loss, but it is not a cure. Continue to use semaglutide injection even if you feel well. Do not stop using semaglutide injection without talking to your doctor. Carefully read the commercial project manager's instructions for use that comes with the medication. These instructions describe how to inject a dose of semaglutide injection. Be sure to ask your pharmacist or doctor if you have any questions about how to inject this medication. Always look at the semaglutide solution before you inject it. It should be clear, colorless, and free of particles. Do not use semaglutide if it is colored, cloudy, thickened, or contains solid particles, or if the expiration date on the bottle has passed. Never reuse needles and never share needles or pens. Always remove the needle right after you inject your dose. Dispose of needles in a puncture-resistant container. Ask your doctor or pharmacist howto dispose of the puncture resistant container. You can inject semaglutide in your upper arm, thigh, or stomach area. Change (rotate) the injectionsite with each injection. You can inject semaglutide and insulin in the same body area, but you should not give the injections right next to each other. Allow the pen to warm to room temperature before injecting if the pen was stored in the refrigerator. Are there OTHER USES for this medicine? This medication may be prescribed for other uses; ask your doctor or pharmacist for more information. What SPECIAL PRECAUTIONS should I follow? Before taking semaglutide injection, ?? tell your doctor and pharmacist if you are allergic to semaglutide (Rybelsus, Ozempic, Wegovy), albiglutide (Tanzeum; no longer available in the [place]), dulaglutide (Trulicity), exenatide (Bydureon, Byetta), liraglutide (Saxenda, Victoza), lixisenatide (Adlyxin, in [place]), any other medications, or any of the ingredients in semaglutide injection. Ask your pharmacist or check the Medication Guide for a list of the ingredients. ?? tell your doctor and pharmacist what prescription and nonprescription medications, vitamins, nutritional supplements, and herbal products you are taking or plan to take. It is especially importantto tell your doctor about all the medications you take by mouth because semaglutide may change the way your body absorbs these medications. ?? tell your doctor if you have or have ever had pancreatitis (inflammation of the pancreas), diabetic retinopathy (damage to the eyes caused by diabetes), gallbladder disease, or kidney disease. Also tell your doctor if you have recently had diarrhea, nausea, or vomiting or if you cannot drink liquids by mouth, which may cause dehydration (loss of a large amount of body fluids). ?? tell your doctor if you plan to become . Your doctor may tell you to stop using semaglutide injection for 2 months before a planned . ?? tell your doctor if you are or are . If you become while using semaglutide injection, call your doctor. ?? ask your doctor what to do if there is a large change in your diet, exercise, or weight; or if you get sick, develop an infection or fever, experience unusual stress, or are injured. These changesand conditions can affect your blood sugar and the amount of semaglutide injection you may need. ?? you should know that your mental health may change in unexpected ways and you may become suicidal (thinking about harming or killing yourself or planning or trying to do so) while you are using semaglutide injection for weight loss. You, your family, or your caregiver should call your doctor right away if you experience any of the following symptoms: depression; talking or thinking about wanting to hurt yourself or end your life; withdrawing from friends and family; preoccupation with and dying; or any other unusual changes in behavior or mood. Be sure that your family or caregiver knows which symptoms may be serious so they can call the doctor if you are unable to seek treatment on your own. What SPECIAL DIETARY instructions should I follow? Be sure to follow all exercise and dietary recommendations made by your doctor or dietitian. What should I do IF I FORGET to take a dose? If you are using semaglutide injection (Ozempic), inject the missed dose as soon as you remember it. However, if more than 5 days passed since the missed dose, skip the missed dose and continue your regular dosing schedule. Do not inject a double dose to make up for a missed one. If you are using semaglutide injection (Wegovy) and the next dose is more than 2 days away (48 hours), use the missed dose as soon as possible. If you miss a dose of semaglutide injection (Wegovy) and the next scheduled dose is less than 2 days away (48 hours), skip the missed dose and continue your regular dosing schedule. If you miss a dose of semaglutide injection (Wegovy) for more than 2 weeks, call your doctor or pharmacist. What SIDE EFFECTS can this medicine cause? Semaglutide injection may cause side effects. Tell your doctor if any of these symptoms are severe or do not go away: ?? nausea ?? vomiting ?? diarrhea ?? abdominal pain ?? constipation ?? heartburn ?? burping Some side effects can be serious. If you experience any of these symptoms call your doctor immediately or get emergency medical treatment: ?? ongoing pain that begins in the upper left or middle of the stomach but may spread to the back, with or without vomiting ?? rash; itching; swelling of the eyes, face, mouth, tongue, or throat; or difficulty breathing or swallowing ?? decreased urination; or swelling of legs, ankles, or feet ?? vision changes ?? fainting or dizziness ?? pain in upper stomach; yellowing of skin or eyes; fever; or oleg-colored stools (in those receiving semaglutide [Wegovy] for management of weight loss) ?? rapid heartbeat ?? dizziness, light-headedness, sweating, confusion or drowsiness, headache, blurred vision, slurred speech, shakiness, fast heartbeat, anxiety or irritability or mood changes, hunger, weakness, or feeling jittery Semaglutide injection may cause other side effects. Call your doctor if you have any unusual problems while using this medication. If you experience a serious side effect, you or your doctor may send a report to the Food and Drug Administration's (FDA) MedWatch Adverse Event Reporting program online (https://www.fda.gov/Safety/MedWatch) or by phone ( ). What should I know about STORAGE and DISPOSAL of this medication? Keep this medication in the container it came in and out of reach of children. Store it away from light and heat, with the pen cap on. Store unused semaglutide pens (Ozempic) in the refrigerator (36??F to 46??F [2??C to 8??C]) but do not place them near the refrigerator cooling element. Once a semaglutide pen is in use you can storeit at room temperature (59??F to 86??F [15??C to 30??C]) or in the refrigerator. Do not freeze. Do not use semaglutide if it has been frozen. When traveling, pens that are in use can be stored at room temperature (59??F to 86??F [15??C to 30??C]) (not in a car glove compartment or other hot place).Make a note of the date you first use a semaglutide pen, and dispose of the pen after 56 days, evenif there is some solution left in the pen. Store semaglutide pens (Wegovy) in the refrigerator (36??F to 46??F [2??C to 8??C]). Before removing the cap, it can be stored or from 46??F to 86??F [8??C to 30??C]) in the original carton for up to28 days. Do not freeze. Do not use semaglutide if it has been frozen. It is important to keep all medication out of sight and reach of children as many containers (such as weekly pill minders and those for eye drops, creams, patches, and inhalers) are not child-resistant and young children can open them easily. To protect young children from poisoning, always lock safety caps and immediately place the medication in a safe location - one that is up and away and out of their sight and reach. https://www.upandaway.org Unneeded medications should be disposed of in special ways to ensure that pets, children, and otherpeople cannot consume them. However, you should not flush this medication down the toilet. Instead,the best way to dispose of your medication is through a medicine take-back program. Talk to your pharmacist or contact your local garbage/recycling department to learn about take-back programs in your community. See the FDA's Safe Disposal of Medicines website (https://goo.gl/c4Rm4p) for more information if you do not have access to a take-back program. What should I do in case of OVERDOSE? In case of overdose, call the poison control helpline at . Information is also available online at https://www.poisonhelp.org/help. If the victim has collapsed, had a seizure, has trouble breathing, or can't be awakened, immediately call emergency services at 201. What OTHER INFORMATION should I know? Do not let anyone else take your medication. Ask your pharmacist any questions you have about refilling your prescription. It is important for you to keep a written list of all of the prescription and nonprescription ([id number]) medicines you are taking, as well as any products such as vitamins, minerals, or otherdietary supplements. You should bring this list with you each time you visit a doctor or if you areadmitted to a hospital. It is also important information to carry with you in case of emergencies. This report on medications is for your information only, and is not considered individual patient advice. Because of the changing nature of drug information, please consult your physician or pharmacist about specific clinical use. The [place] [employer] represents that the information provided hereunder was formulated with a reasonable standard of care, and in conformity with professional standards in the field. The [place] [employer] makes no representations or warranties, express or implied, including, but not limited to, any implied warranty of merchantability and/or fitness for a particular purpose, with respect to such information and specifically disclaims all such warranties. Users are advised that decisions regarding drug therapy are complex medical decisions requiring the independent, informed decision of an appropriate health child care associate, and the information is provided for informational purposes only. The entire monograph for a drug should be reviewed for a thorough understanding of the drug's actions, uses and side effects. The [place] [employer] does not endorse or recommend the use of any drug.The information is not a substitute for medical care. AHFS?? Patient Medication Information?. ?? Copyright, 2023. The [place] [employer]??, [address], [address], [place], [place]. All Rights Reserved. Duplication for commercial use must be authorized by [facility]. Selected Revisions: July 17, 2023. AHFS?? Patient Medication Information?. ?? Copyright, 2023 * Care Plan - Michelle Andrews RN - 02/04/2024 10:37 PM EST Problem: Adult Inpatient Plan of Care Goal: Plan of Care Review Outcome: Ongoing, Progressing Goal: Patient-Specific Goal (Individualized) Outcome: Ongoing, Progressing Goal: Absence of Hospital-Acquired Illness or Injury Outcome: Ongoing, Progressing Goal: Optimal Comfort and Wellbeing Outcome: Ongoing, Progressing Goal: Readiness for Transition of Care Outcome: Ongoing, Progressing Problem: Infection Goal: Absence of Infection Signs and Symptoms Outcome: Ongoing, Progressing Problem: Fluid Volume Excess Goal: Fluid Balance Outcome: Ongoing, Progressing * Progress Notes - John Phillips MD - 02/04/2024 1:30 PM EST Images from the original note were not included. INPATIENT CARDIOLOGY (CA3) DAILY PROGRESS NOTE SUBJECTIVE Overview: Robert Hurley is a 58 y.o. male with significant PMHx of HFrEF (33%) reportedly due to ischemic cardiomyopathy, CAD s/p remote PCI, suspected COPD, CAMACHO cirrhosis, T2DM, CKD4, and prior L AKA who presented to [facility] on 01/30/2024 with worsening shortness of breath secondary to heart failure exacerbation. Last 24 hours: He feels a little better today, but said not great overall. He is saturating 99% on 1-2L. Edema improved. OBJECTIVE Blood pressure (!) 132/96, pulse 79, temperature 36.7 ??C (98 ??F), temperature source Oral, resp. rate 14, height 1.829 m (6' 0.01 ), weight 85.6 kg (188 lb 11.4 oz), SpO2 99%. GENERAL: no acute distress, cooperative SKIN: warm and dry, RLE with dressing due to skin dryness and flaking EYES: EOMI ENT: intact, mucous membranes moist, no apparent injury CARDIO: 1+ RLE edema, RRR no MRG RESPIRATORY/THORAX: bibasilar crackles improved GASTROINTESTINAL: soft NEUROLOGICAL: Alert and able to answer questions appropriately Results / Imaging CBC: No results found for: WBC , HGB , HCT , PLT , MCV , MCH , MCHC , RDW , NRBC Differential: No results found for: WBC , NEUTOPHILPCT , LYMPHOPCT , MONOPCT , EOSPCT , NEUTROABS Coagulation: No results found for: INR , PT , PTT , CLFGN Renal: Lab Results Component Value Date NA 136 02/04/2024 K 4.3 02/04/2024 CL 93 (L) 02/04/2024 CO2 29 02/04/2024 BUN 77 (H) 02/04/2024 CREATININE 3.04 (H) 02/04/2024 GLUCOSE 269 (H) 02/04/2024 CALCIUM 8.7 (L) 02/04/2024 Liver: No results found for: AST , ALT , ALPHO , BILITOT , BILIDIR Glucose: Lab Results Component Value Date PGLU 256 (H) 02/04/2024 PGLU 224 (H) 02/04/2024 PGLU 135 (H) 02/03/2024 PGLU 216 (H) 02/03/2024 Lab Results Component Value Date HGBA1C 8.0 (H) 12/17/2023 Most recent Echocardiogram (12/20/23): Interpretation Summary Left Ventricle: Based on the linear dimension and/or 2D volumes, the left ventricle is severely dilated in size. There is normal left ventricular myocardial thickness and mass. The left ventricular systolic function is moderately reduced. The LVEF as measured by biplane volume is 33%. The diastolic function is abnormal. There is grade II (moderate) diastolic dysfunction. The left ventricular filling pressure is elevated. Right Ventricle: The right ventricle is normal in size. The right ventricular systolic function is normal. Right ventricular systolic pressure is mildly elevated (35-50mmHg). The estimated right ventricular systolic pressure is 43 mmHg. Aortic Valve: There is mild aortic valve regurgitation. There is mild to moderate aortic stenosis. There is moderate (0.25-0.5) valvular aortic stenosis based upon the dimensionless index (LVOT / AV ratio). The peak gradient is 31 mmHg. The mean gradient is 18 mmHg. The estimated aortic valve area by the continuity equation is 1.6 cm2. Mitral Valve: There is moderate mitral regurgitation. Compared to the most recently available prior study, and allowing for differences in image quality and technique, AoV gradients have increased. ASSESSMENT/PLAN Robert Hurley is a 58 y.o. male with significant PMHx of HFrEF (33%) reportedly due to ischemic cardiomyopathy, CAD s/p remote PCI, suspected COPD, CAMACHO cirrhosis, T2DM, CKD4, and prior L AKA who presented to [facility] on 01/30/2024 with worsening shortness of breath secondary to heart failure exacerbation. #HFrEF (33%) presumed 2/2 ischemic cardiomyopathy with acute exacerbation #Acute on chronic hypoxic respiratory failure -recent discharge from [facility] for similar presentation. Was discharged on Bumex 2mg daily with PRN extra dose for increased swelling. Reports taking Bumex every other day since discharge. Has had progressive SOA -Echo from 12/19 with LVEF 33% PLAN -Decrease Bumex to 1mg daily due to continued high UOP; suspect continued volume overload related to poor adherence rather than medication ineffectiveness as he has been diuresing well; will assess UOP this afternoon and re-dose if needed -Electrolyte monitoring with daily BMP -GDMT: Farxiga 10mg, Metoprolol succinate 25mg; holding MRA and NARESH/ARB/ARNI due to hyperkalemia and inconsistent medication adherence -Consulted ADHF given history of multiple admissions; patient determined to not be a candidate for advanced therapy given documented history of noncompliance and other co morbidities -Hydralazine 25mg Q8hr + isosorbide dinitrate 10mg Q8hr -Anticipate discharge in AM #Hyperkalemia -K 5.1 on admission, initially required lokelma but has been stable -Will diurese and continue to monitor #CAD -NSTEMI 01/2023, on DAPT -Continuing ASA, starting atorvastatin 80mg at bedtime. Patient on statin in the past, but ran out. 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 Takes Dulera and albuterol outpatient. -Continue Dulera, Spiriva Respimat, and DuoNebs PRN #T2DM -continuing home Farxiga -insulin regimen 3U JAVED nightly + 3U at mealtime + SSI, will continue to adjust regimen as needed. #MASH cirrhosis, compensated -found on ultrasound 2020, no follow-ups since that time, no hx of HE/ascites/EV/SBP/HCC -LFTs elevated, likely due to congestion secondary to heart failure given the improvement after diuresis -will continue to monitor #CKD4 -Cr baseline for past year appears to be roughly 3 -avoiding nephrotoxins as able -holding home losartan due to hyperkalemia -monitoring with BMP #L AKA with chronic debility (POA) -PT/OT Consulted; pt with [facility] recs, but prefers home health Diet: Reg, Carb-1, 1.5L fluid restriction DVT ppx: subcutaneous heparin Code Status: Full Dispo: CA3, progressive. Has [facility] recs but prefers home health John Phillips MD Internal Medicine, PGY-1 Pager: [phone] Cosigned by Dustin Barakat MD at 02/12/2024 8:51 PM EST Associated attestation - Dustin Barakat MD - 02/12/2024 8:51 PM EST I saw and evaluated the patient with the resident/fellow. I discussed the case with the resident/fellow and agree with the findings and plan as documented. * Query Clarification Note - Darrin Griffin MD - 02/04/2024 12:43 PM EST chronic hypoxic respiratory failure * Progress Notes - Cameron Cabrera - 02/04/2024 12:04 PM EST Case Management Discharge Note Robert Hurley 58 y.o. male CSN: [id number] Admission: 01/30/2024 8:34 AM Primary Problem: Heart failure (CMS/HCC) Primary Rounder And Backer: Primary Caregiver: Self Assistance Available at Discharge: Availability of Care Givers (#Hours): 1-4 hours Family/Rounder And Backer(s) Willingness Assessed to care for patient at home: Yes Family/Rounder And Backer(s) Readiness Assessed to care for patient at home: Yes Housing Circumstances-Z Codes: Housing Circumstances (select all that apply): Low Income (101-300% Federal Poverty Guidlines) - Z596 Patient Referred to Financial or Community Resources: Meets 300%[facility] [facility] transport home upon discharge Discharge Facility/Level of Care Needs: Discharge Facility/Level of Care Needs: 1-Home or Self Care Patient's Choice of Community Agency(s): Patient/Family Anticipated Services at Transition: Patient/Family Anticipated Services at Transition: home health care DME/Equipment Needed after Discharge: Equipment Currently Used at Home: prosthesis, oxygen, wheelchair, manual Equipment Needed After Discharge: none Readmission Within the Last 30 Days: Readmission Within the Last 30 Days: no previous admission in last 30 days Medicare Documentation: Follow-up: No follow-up provider specified. Discharge Transportation: Transportation Anticipated: medical transport Transportation Home at Discharge: Medical Transport ([facility] wheelchair transport) Has discharge transport been arranged?: No What day is the transport expected?: 02/05/24 What time is the transport expected?: 1000 Follow Up Transport: Transportation Needed to Follow up Appoinments: Medical Transport Additional Comments: Meets 300%[facility] transport WC home upon discharge 10 am 02/05/2024 Cameron Cabrera * Progress Notes - Julia Mejia - 02/04/2024 11:25 AM EST Occupational Therapy Treatment Patient Name: Robert Hurley Today's Date: 02/04/2024 OT Discharge Recommendations: Subacute rehab Equipment Recommended: Defer to facility Subjective Pt reports plan to d/c home today if he can find a ride. Participants in Care Family/Caregiver Present: No Presentation Oxygen Therapy: Supplemental oxygen O2 Delivery Method: Nasal cannula 2 L/min Lines and Tubes: Peripheral IV 01/30/24 Right Antecubital (Active) Pre-Session: Head of bed elevated, Lines intact Pre-Session Comments: Patient had left prosthetic leg donned upon arrival Post-Session: Head of bed elevated, Lines intact, RN notified, Call light in reach Post-Session Comments: Educated patient on importance of doffing LLE prosthetic due to 8/10 pain inresidual limb when doing steps. Noted redness present on distal end, however blanchable. Precautions Medical Precautions: Fall precautions Objective Pain Pt reports 8/10 pain on residual limb when doing steps. Noted redness present on distal end, however blanchable. Delirium Screening Mckinley Agitation Sedation Scale (RASS): Alert and calm Confusion Assessment Method-ICU (CAM-ICU/PCAM-ICU) Feature 3: Altered Level of Consciousness: Negative Cognition Cognition Overall Cognitive Status: Impaired Arousal/Alertness: Appropriate responses to stimuli Mood/Behavior: Alert Orientation Level: Oriented X4 Single Step Commands: Consistently Multi-Step Commands: Consistently Method of Communication: Verbal Safety Judgment: Decreased awareness of need for assistance Awareness of Errors: Assistance required to identify errors made Deficit Awareness: Decreased awareness of deficits Attention Span: Appears intact Bed Mobility Bed Mobility Exam: Supine to Sit Level of [place]: Stand-by assist Physical/Nonphysical Assist: Verbal Cues (HOB flat) Bed Mobility Exam: Sit to Supine Level of [place]: Stand-by assist Physical/Nonphysical Assist: Verbal Cues (HOB flat) Transfers Transfer Exam: Sit to stand Level of [place]: Stand-by assist Physical/Nonphysical Assist: Minimal cues Assistive Device: Walker, rolling Transfer Exam: Stand to Sit Level of [place]: Stand-by assist Physical/Nonphysical Assist: Minimal cues Assistive Device: Walker, rolling Toilet Transfer Level of [place]: Stand-by assist Physical/Nonphysical Assist: Verbal Cues, Nonverbal cues (demo/gestures) Type of Transfer: Ambulation, To toilet Assistive Device: Grab bar Functional Mobility Device: Rolling walker Assistance: Standby assist Distance : 15ft to bathroom and 15ft from bathroom Self-Care Interventions Self Care/Home Management (ADLs) Time Entry: 44 Pt. participated in functional endurance tasks in preparation for high level ADL routines. Pt. completed supine>sit EOB with SBA with HOB flat, followed by sit>stand from EOB with SBA + RW. Pt.completed navigation task 15 ft to the bathroom and 15 ft back to bed with SBA + RW. Pt reports baseline distance for functional mobility ~15-20 ft with patient mostly using his wheel chair. Lower Extremity Dressing Shoe Level of Assistance: Close supervision Prosthetic Level of Assistance: Close supervision Pt with prosthesis donned upon entry and patient demonstrating ability to doff prosthesis without assistance in long sitting position in bed. LE Dressing Where Assessed: Edge of bed Toileting Toileting Level of Assistance: SBA Where Assessed: Toilet Pt completed toilet transfer with SBA + grab bar, however pt reporting lower toilet seat at home and no grabs. OT anticipates patient will have difficulty standing from lower commode at home. Community Re-entry: OT facilitated community re-entry challenge with patient performing steps. Pt able to complete 1 step up with RW supported on the step and Min assist. Pt unable to complete stair challenge with stepping down forward due to shakiness and increased LLE pain. Patient stepped down backwards with LLE leading and Mod assist for added stability and managing AD. Pt currently unable to safely and independently enter and exit his apartment. Assessment Pt. tolerated OT session fair, demonstrating good progress towards OT POC goals. Pt limited this date due to pain with sequential ADL routines on left residual limb impacting standing activity tolerance, functional mobility and ability to perform steps for entry/exit into his apartment. Pt reports living alone with minimal functional mobility at baseline and mostly uses his w/c for mobility. Pt most appropriate for subacute rehab due to inability to complete IADL routines independently and safely negotiate steps to enter and exit his apartment. Pt. continues to benefit from skilled OT services to address decreased safety and independence with ADL's and functional mobility. OT Recommendations Discharge Destination: Subacute rehab Discharge Equipment: Defer to facility Plan Progress activity tolerance and independence in self care tasks. Goals OT GOAL DETAILS Goal Established Date Time Frame Goal Status OT Goal 1: Patient will complete functional ambulation to toilet and all toileting tasks with SBA. 01/31/24 2 weeks OT Goal 2: Patient will complete full body dressing with SBA. 01/31/24 2 weeks OT Goal 3: Patient will complete 3-step grooming routine while standing sinkside with SBA. 01/31/24 2 weeks Written by Julia Mejia on 02/04/24 at 3:15 PM. * Progress Notes - Radha Ocampo - 02/04/2024 11:24 AM EST Physical Therapy Treatment Patient Name: Robert Hurley Today's Date: 02/04/2024 PT Discharge Recommendations: Subacute rehab Equipment Recommended: Defer to facility Subjective Patient agreeable to PT session. Participants in Care Family/Caregiver Present: No House Superintendent: Not Applicable Presentation Oxygen Therapy: Supplemental oxygen O2 Delivery Method: Nasal cannula O2 Flow Rate (L/min): 2 L/min Lines and Tubes: (pulse oximeter) Pre-Session: Head of bed elevated, Lines intact Pre-Session Comments: Patient had left prosthetic leg donned upon arrival; Post-Session: Head of bed elevated, Lines intact, RN notified, Call light in reach Post-Session Comments: Educated patient on importance of doffing LLE prosthetic due to 8/10 pain inresidual limb when doing steps. Noted redness present on distal end, however blanchable. Peripheral IV 01/30/24 Right Antecubital (Active) Precautions Medical Precautions: Fall precautions Objective Pain 8/10 residual limb pain post attempting step. RN notified. Delirium Screening Mckinley Agitation Sedation Scale (RASS): Alert and calm Confusion Assessment Method-ICU (CAM-ICU/PCAM-ICU) Feature 3: Altered Level of Consciousness: Negative THERAPEUTIC ACTIVITY Treatment Minutes 34 Interventions Patient participated in PT interventions targeting strength, endurance, and range of motion to improve functional mobility and activity. See bed mobility, transfers, and ambulation sections for details. Additional time required for line management and room set-up for safe mobility. Patient's vital signs monitored intermittently for signs of intolerance to activity throughout session. Bed Mobility Bed Mobility Exam: Supine to Sit Level of [place]: Stand-by assist Physical/Nonphysical Assist: (HOB flat) Bed Mobility Exam: Sit to Supine Level of [place]: Stand-by assist Physical/Nonphysical Assist: (HOB flat) Transfers Transfer Exam: Sit to stand Level of [place]: Stand-by assist Physical/Nonphysical Assist: Minimal cues Assistive Device: Walker, rolling Transfer Exam: Stand to Sit Level of [place]: Stand-by assist Physical/Nonphysical Assist: Minimal cues Assistive Device: Walker, rolling Toilet Transfer Level of [place]: Stand-by assist Assistive Device: Grab bar Ambulation Device: Rolling walker Assistance: Standby assist, no LOB Distance : 15ft to bathroom and 15ft from bathroom Ambulation Comments: Decreased dilshad, mild trunk flexion, downward gaze. Noted L AKA prosthesis already donned prior to entering room. Gait Training (9 minutes) Stairs Device: Walker Apparatus: (L AKA prosthetic) Assistance: Minimum assistance, Moderate assistance, Additional assist utilized for safety- Verbal cues for safety Number of Stairs: 1 step Stair Training Interventions: Patient required min A ascending platform step using RWx and mod A descending platform step backwards- unable to attempt additional step due to L residual limb pain. Doffed L AKA prosthesis independently at end of session noting redness present on distal end of residual limb- blanchable. Assessment Per CM note 02/02 patient declining subacute rehab recommendations and requests to return home. Patient reports only having to ambulate short distances inside home approx. 15-20ft using RW and also has wheelchair he uses in home. Patient does have 2 platform steps to enter/ exit home without handrails, however can use RW because the steps fit the width of Rw. Attempted steps today with patient only able to complete one step with RW min A ascending and mod A descending backwards- limited due to pain in distal end of residual limb- therapist examined noting red blanchable area. Max education given to patient of having prosthesis only donned when needing to ambulate right now to reduce chances of skin breakdown- patient agreeable to leave L AKA prosthesis off at end of session. RN notified ofabove treatment and importance of patient leaving prosthesis off unless ambulating- RN agrees. Patient able to ambulate short distances safely using RW SBA no LOB and is probably near baseline, however unable to fully complete steps this date. Additionally updated CM on above treatment. Patient will continue to benefit from acute PT focusing on improving functional mobilities and progressing towards prior level of function during hospital stay. PT Recommendations Discharge Destination: Subacute rehab Discharge Equipment: Defer to facility Plan Will continue per PT plan of care 2 - 5 times per week. PT Goals PT GOAL DETAILS Goal Established Date Time Frame Goal Status PT Goal 1: Patient will be Modified Independent with all bed mobility to return to PLOF. 01/31/24 2weeks PT Goal 2: Patient will transfer sit < > stand with Modified Independent with appropriate assistive device to reduce caregiver burden. 01/31/24 2 weeks PT Goal 3: Patient will ambulate 150' with RWx SBA for household distances. 01/31/24 2 weeks PT Goal 4: Patient will ascend/descend 2 stairs with Min A to access home. (ONLY IF D/C HOME) 01/31/24 2 weeks Goal ongoing Written by Radha Ocampo on 02/04/24 at 2:15 PM. * Progress Notes - Abby Blood - 02/04/2024 10:23 AM EST Inpatient Cardiac Rehab Assessment Patient Name: Robert Hurley Subjective: Mr. Hurley qualifies for outpatient cardiac rehab due to HFrEF. I/R/P: Robert Hurley qualifies for outpatient cardiac rehab. Mr. Hurley was discharged with HH / PT and isnot appropriate for a cardiac rehab referral at this time. He could be referred at a later date if appropriate. * Progress Notes - Cameron Cabrera - 02/03/2024 1:52 PM EST Case Management Adult Progress Note Robert Hurley 58 y.o. male CSN: [id number] Admission: 01/30/2024 8:34 AM Primary Problem: Heart failure (CMS/HCC) Anticipated Discharge Date: TBD Additional Comments Chart review completed. FRANCISCO JAVIER WHITMORE attended rounding this AM to discuss POC with MD. Per the team, the patient is not medically ready for discharge at this time and the team continues to medically manage and monitor the patient. FRANCISCO JAVIER CM spoke with Pt today re: subacute rehab recommendations and Pt declined; requests to return home. Pt meets 300%FPG and will require [employer] wheelchair transport home.SW/RN CM will follow and arrange any discharge needs closer to discharge. Cameron Cabrera * Progress Notes - Sheri Alexandre - 02/03/2024 1:09 PM EST [facility] patient enrolled in WES/BT for 6 week transition period. Transitions assist with education and support post hospital stay. Home career coach will see the patient within 48 hours of discharge and follow at home and telephonically for 6 weeks. Patient is agreeable to the program. * Progress Notes - Anastasia Parmar MD - 02/03/2024 10:02 AM EST Images from the original note were not included. INPATIENT CARDIOLOGY (CA3) DAILY PROGRESS NOTE SUBJECTIVE Overview: Robert Hurley is a 58 y.o. male with significant PMHx of HFrEF (33%) reportedly due to ischemic cardiomyopathy, CAD s/p remote PCI, suspected COPD, CAMACHO cirrhosis, T2DM, CKD4, and prior L AKA who presented to [facility] on 01/30/2024 with worsening shortness of breath secondary to heart failure exacerbation. Last 24 hours: Patient reports shortness of breath is stable. Denies any chest pain. No nausea. Reports no other concerns. OBJECTIVE Blood pressure (!) 135/93, pulse 85, temperature 36.8 ??C (98.3 ??F), temperature source Oral, resp. rate 18, height 1.829 m (6' 0.01 ), weight 85.6 kg (188 lb 11.4 oz), SpO2 100%. GENERAL: no acute distress, cooperative SKIN: warm and dry, RLE with dressing due to skin dryness and flaking EYES: EOMI ENT: intact, mucous membranes moist, no apparent injury CARDIO: 1+ RLE edema, RRR no MRG RESPIRATORY/THORAX: bibasilar crackles improved, increased work of breathing with transfer from chair to bed GASTROINTESTINAL: soft NEUROLOGICAL: Alert and able to answer questions appropriately Results / Imaging CBC: No results found for: WBC , HGB , HCT , PLT , MCV , MCH , MCHC , RDW , NRBC Differential: No results found for: WBC , NEUTOPHILPCT , LYMPHOPCT , MONOPCT , EOSPCT , NEUTROABS Coagulation: No results found for: INR , PT , PTT , CLFGN Renal: Lab Results Component Value Date NA 137 02/03/2024 K 4.5 02/03/2024 CL 94 (L) 02/03/2024 CO2 30 (H) 02/03/2024 BUN 72 (H) 02/03/2024 CREATININE 3.14 (H) 02/03/2024 GLUCOSE 309 (H) 02/03/2024 CALCIUM 8.7 (L) 02/03/2024 Liver: Lab Results Component Value Date AST 35 02/03/2024 ALT 23 02/03/2024 BILITOT 0.8 02/03/2024 Glucose: Lab Results Component Value Date PGLU 177 (H) 02/03/2024 PGLU 152 (H) 02/02/2024 PGLU 204 (H) 02/02/2024 PGLU 249 (H) 02/02/2024 Lab Results Component Value Date HGBA1C 8.0 (H) 12/17/2023 Most recent Echocardiogram (12/20/23): Interpretation Summary Left Ventricle: Based on the linear dimension and/or 2D volumes, the left ventricle is severely dilated in size. There is normal left ventricular myocardial thickness and mass. The left ventricular systolic function is moderately reduced. The LVEF as measured by biplane volume is 33%. The diastolic function is abnormal. There is grade II (moderate) diastolic dysfunction. The left ventricular filling pressure is elevated. Right Ventricle: The right ventricle is normal in size. The right ventricular systolic function is normal. Right ventricular systolic pressure is mildly elevated (35-50mmHg). The estimated right ventricular systolic pressure is 43 mmHg. Aortic Valve: There is mild aortic valve regurgitation. There is mild to moderate aortic stenosis. There is moderate (0.25-0.5) valvular aortic stenosis based upon the dimensionless index (LVOT / AV ratio). The peak gradient is 31 mmHg. The mean gradient is 18 mmHg. The estimated aortic valve area by the continuity equation is 1.6 cm2. Mitral Valve: There is moderate mitral regurgitation. Compared to the most recently available prior study, and allowing for differences in image quality and technique, AoV gradients have increased. ASSESSMENT/PLAN Robert Hurley is a 58 y.o. male with significant PMHx of HFrEF (33%) reportedly due to ischemic cardiomyopathy, CAD s/p remote PCI, suspected COPD, CAMACHO cirrhosis, T2DM, CKD4, and prior L AKA who presented to [facility] on 01/30/2024 with worsening shortness of breath secondary to heart failure exacerbation. HFrEF (33%) presumed 2/2 ischemic cardiomyopathy with acute exacerbation Acute on chronic hypoxic respiratory failure -recent discharge from [facility] for similar presentation. Was discharged on Bumex 2mg daily with PRN extra dose for increased swelling. Reports taking Bumex every other day since discharge. Has had progressive SOA. PLAN -PO 2mg bumex today given patient is clinically euvolemic with increased creatinine today -daily BMP -restarted beta stacy given patient is clinically euvolemic, increasing metoprolol to 25 mg daily. -continue home farxiga -holding NARESH/ARB/ARNI and spironolactone given hyperkalemia and inconsistent medication adherence, can consider in the future when patient has reliable follow-up. Discussing access to transport with case-management. -consulted [facility] given history of multiple admissions. Patient determined to not be a candidate for advanced therapy given documented history of noncompliance and other co morbidities. HTN -start hydralazine 25mg Q8hr + isosorbide dinitrate 10mg Q8hr Hyperkalemia -K 5.1 on admission, initially required lokelma but has been stable today -will diurese and continue to monitor -will plan to hold medications that may cause hyperkalemia CAD -NSTEMI 01/2023, on DAPT -continuing ASA, starting atorvastatin 80mg at bedtime. Patient on statin in the past, but ran out. 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 Takes Dulera and albuterol outpatient. -Continue Dulera, Spiriva Respimat, and DuoNebs PRN T2DM -continuing home Farxiga -increasing insulin regimen to 3U at night + 3U at mealtime + SSI, will continue to adjust regimen as needed. CAMACHO cirrhosis, compensated -found on ultrasound 2020, no follow-ups since that time, no hx of HE/ascites/EV/SBP/HCC -LFTs elevated, likely due to congestion secondary to heart failure given the improvement after diuresis -will continue to monitor CKD4 -Cr appears to be stable when compared to values over the past year -avoiding nephrotoxins as able -holding home losartan due to hyperkalemia -monitoring with BMP Diet: regular DVT ppx: heparin Code Status: Full Dispo: CA3, progressive. Has [facility] recs but prefers home health. Anastasia Parmar MD Internal Medicine PGY-1 Cosigned by Dustin Barakat MD at 02/12/2024 8:53 PM EST Associated attestation - Dustin Barakat MD - 02/12/2024 8:53 PM EST I saw and evaluated the patient with the resident/fellow. I discussed the case with the resident/fellow and agree with the findings and plan as documented. * Progress Notes - Therese Maza - 02/03/2024 9:32 AM EST Physical Therapy Treatment Patient Name: Robert Hurley Today's Date: 02/03/2024 PT Discharge Recommendations: Subacute rehab Equipment Recommended: Defer to facility Subjective The patient states, I don't feel good today. Participants in Care Family/Caregiver Present: No House Superintendent: Not Applicable Presentation Oxygen: Supplemental oxygen Nasal cannula 2 L/min Telemetry: Yes Lines and Tube: Peripheral IV 01/30/24 Right Antecubital (Active) Pre-Session: Supine, Head of bed elevated, Lines intact Patient had left prosthetic leg donned uponPTA arrival; Post-Session: Sitting in chair, Call light in reach, Lines intact, Chair alarm, RN notified Left prosthetic leg doffed at end of session; RN and medical team made aware patient complaining of pain with ambulation in left prosthetic limb and there was a blanchable red spot noted on distal end of left residual limb and patient complaining of pain there as well. Patient positioned for comfort and pressure relief. Precautions Medical Precautions: Fall precautions Objective Pain Patient complained of pain at the distal end of left residual limb with and without left prosthesisdonned; RN and medical team made aware; Delirium Screening Mckinley Agitation Sedation Scale (RASS): Alert and calm Confusion Assessment Method-ICU (CAM-ICU/PCAM-ICU) Feature 3: Altered Level of Consciousness: Negative Therapeutic Activity (29 minutes) The patient sat edge of bed for improved activity tolerance to upright position with CGA of 1 person progressing to SBA of 1 person approximately 8-10 minutes; Verbal, visual, and tactile cues provided throughout treatment session for self- pacing, fall prevention, pursed lip breathing; Therapist monitored patient's vital signs intermittently during session to assess patient's continued tolerance to activity. Please see bed mobility and transfer section for further details. Bed Mobility Bed Mobility Interventions: Verbal cues provided for correct BUE placement and for sequencing. Bed Mobility Exam: Rolling/Turning Level of [place]: Minimum assist (75% patient effort) Physical/Nonphysical Assist: Additional assist utilized for safety, Verbal Cues, Set-up required Assistive Device: Bed rails Bed Mobility Exam: Scooting/Bridging Level of [place]: Contact guard (to scoot to edge of bed) Physical/Nonphysical Assist: Verbal Cues, Set-up required Assistive Device: Bed rails Bed Mobility Exam: Supine to Sit Level of [place]: Minimum assist (75% patient's effort) Physical/Nonphysical Assist: Additional assist utilized for safety, HOB elevated, Verbal Cues, Set-up required Assistive Device: Bed rails Transfers Transfer Intervention: Verbal cues provided for correct bilateral hand and foot placement during sit to stand transfers. Transfer Exam: Sit to stand Level of [place]: Minimum assist (75% patient's effort) Physical/Nonphysical Assist: Additional assist utilized for safety, Verbal Cues, Set-up required Assistive Device: Walker, rolling Transfer Exam: Stand to Sit Level of [place]: Minimum assist (75% patient's effort) Physical/Nonphysical Assist: Additional assist utilized for safety, Verbal Cues, Set-up required Assistive Device: Walker, rolling Gait Training (15 minutes) Device: Rolling walker Assistance: Contact guard assist, Additional assist utilized for safety, Minimal verbal cues, Minimal tactile cues Distance: 15ft Gait Analysis: mild forward trunk lean, unsteady gait, decreased dilshad, inconsistent walker placement; Gait Training Interventions: Verbal cues provided for upright posture, increased stride, improved bilateral foot clearance, safe rolling walker management and increased body awareness related to walker position. Assessment The patient required an increase in the amount of assistance needed to complete bed mobility and transfers on this date than the previous session. The patient demonstrates decreased balance with transfers and gait and is a fall risk. The patient received multiple cues for safe/improved quality of gait pattern and safe walker management. PRIMARY SCHOOL TEACHER LIBRARIAN discussed with the patient his need for continued rehab once he discharges from the hospital due to the patient has steps he must navigate to enter the home, he is not ambulating household distances safely,he lives alone, he demonstrates decreased balance and quick fatigue with all activities. The patient continues to present with the following impairments: decreased strength, decreased balance, decreased activity tolerance and decreased safety awareness. The patient will continue to benefit from skilled PT services to address deficits listed to decrease fall risk and maximize functional mobility levels to promote a safe return to the home. PT Recommendations Discharge Destination: Subacute rehab Discharge Equipment: Defer to facility Plan Continue with established PT plan of care 2 - 5 times per week to progress towards PT goals. PT Goals PT GOAL DETAILS Goal Established Date Time Frame Goal Status PT Goal 1: Patient will be Modified Independent with all bed mobility to return to OF. 01/31/24 2weeks PT Goal 2: Patient will transfer sit < > stand with Modified Independent with appropriate assistive device to reduce caregiver burden. 01/31/24 2 weeks PT Goal 3: Patient will ambulate 150' with RWx SBA for household distances. 01/31/24 2 weeks PT Goal 4: Patient will ascend/descend 2 stairs with Min A to access home. (ONLY IF D/C HOME) 01/31/24 2 weeks Written by Therese Maza on 02/03/24 at 1:12 PM. * Progress Notes - Stephanie Goddard - 02/03/2024 9:31 AM EST Occupational Therapy Treatment Patient Name: Robert Hurley Today's Date: 02/03/2024 OT Discharge Recommendations: Subacute rehab Equipment Recommended: Defer to facility Subjective Pt consent to tx but verbalizes he is not feeling well. Participants in Care Family/Caregiver Present: No House Superintendent: Not Applicable Presentation Oxygen Therapy: Supplemental oxygen O2 Delivery Method: Nasal cannula O2 Flow Rate (L/min): 2 L/min Pre-Session: Supine, Head of bed elevated, Lines intact Pre-Session Comments: Patient had left prosthetic leg donned upon OT arrival; Post-Session: Sitting in chair, Call light in reach, Lines intact, Chair alarm, RN notified Post-Session Comments: Left prosthetic leg doffed at end of session; RN and medical team made awarepatient complaining of pain with ambulation in left prosthetic limb and there was a blanchable red spot noted on distal end of left residual limb and patient complaining of pain there as well. Precautions Medical Precautions: Fall precautions Objective Pain Patient complained of pain at the distal end of left residual limb with and without left prosthesisdonned; RN and medical team made aware. Therapist encouraged mobility as tolerated, pt positioned for comfort at end of session. Delirium Screening Mckinley Agitation Sedation Scale (RASS): Alert and calm Confusion Assessment Method-ICU (CAM-ICU/PCAM-ICU) Feature 3: Altered Level of Consciousness: Negative Cognition Cognition Cognitive Skill Development Intervention: Pt demonstrates decreased awareness of deficits as well as need for assistance. Additionally, pt received in bed with soiled linens with pt unaware. With skilled OT assist and cues, pt able to safely engage in BADL/mobility, however, pt does not demonstratethe ability to safely and independently engage in BADL/mobility considering cognitive impairments. Overall Cognitive Status: Impaired Arousal/Alertness: Appropriate responses to stimuli Mood/Behavior: Alert Single Step Commands: Consistently Multi-Step Commands: Consistently Method of Communication: Verbal Safety Judgment: Decreased awareness of need for assistance Deficit Awareness: Decreased awareness of deficits Attention Span: Appears intact Bed Mobility Bed Mobility Exam: Rolling/Turning Level of [place]: Minimum assist (75% patient effort) Physical/Nonphysical Assist: Additional assist utilized for safety, Verbal Cues, Set-up required Assistive Device: Bed rails Bed Mobility Exam: Scooting/Bridging Level of [place]: Contact guard (to scoot to edge of bed) Physical/Nonphysical Assist: Verbal Cues, Set-up required Assistive Device: Bed rails Bed Mobility Exam: Supine to Sit Level of [place]: Minimum assist (75% patient's effort) Physical/Nonphysical Assist: Additional assist utilized for safety, HOB elevated, Verbal Cues, Set-up required Assistive Device: Bed rails Transfers Transfer Exam: Sit to stand Level of [place]: Minimum assist (75% patient's effort) Physical/Nonphysical Assist: Additional assist utilized for safety, Verbal Cues, Set-up required Assistive Device: Walker, rolling Transfer Exam: Stand to Sit Level of [place]: Minimum assist (75% patient's effort) Physical/Nonphysical Assist: Additional assist utilized for safety, Verbal Cues, Set-up required Assistive Device: Walker, rolling Toilet Transfer Level of [place]: Minimum assist (75% patient's effort) (anticipated) Physical/Nonphysical Assist: Verbal Cues, Set-up required, Additional assist utilized for safety Type of Transfer: Ambulation, To toilet Assistive Device: Walker, rolling Self-Care Interventions Self Care/Home Management (ADLs) Time Entry: 41 Self_Care Interventions: Pt received in soiled linens at start of tx; pt unaware. OT assists pt to sit EOB to change chucks, pt stands with assist as OT provides total assist for posterior pericare, pt completes anterior pericare while sitting EOB with encouragement and SBA due to pt initial refusal to complete task due to not feeling well. Pt demonstrates impaired balance throughout task, requiring assistance to maintain balance in sitting and in standing. Prior to standing, OT assist pt to don L shoe while sitting at EOB; With skilled OT assist, pt able to complete toilet hygeine at EOB safely. OT provides MASON assist for item retrieval and provides max assist for shoe don; OT stabilizes shoe as pt pushes foot into shoe and ties laces due to pt decreased mobility preventing pt from reaching shoe as well as due to pt limited dynamic sitting balance. Following all mobility, pt requires total assist to doff prosthesis, with OT completing skin check of residual limb due to pt c/o pain at distal end of LLE. Of note, distal end of residual limb red with blanching (medical team made aware). OT inquires about pt skin check routine and educates pt on the importance of skin checks as well as allowing the skin to breathe when resting; pt verbalizes understanding. Pt defers all other BADLparticipation due to not feeling well and fatigue. Lower Extremity Dressing Shoe Level of Assistance: Maximum assistance Prosthetic Level of Assistance: Maximum assistance Toileting Toileting Level of Assistance: Moderate assistance Where Assessed: Bed level (pt received by therapist with soiled linens, pt unaware) Community Re-entry: Training provided to physical activity for the purpose of supporting endurance-based training to improve health and decrease risk of health decline in setting of prolonged hospital-based recover. Pt achieves a distance of 15' in room with CGA, RW, and cues for safe RW management, posture, and pacing, with pt demonstrating increased dilshad near end of activity due to pt fatigue and limited functional endurance, putting pt at higher risk of falls. OT educates pt on the importance of developing functional activity tolerance prior to return home and the role of physical rehabconsidering pt does not demonstrate the ability to safely ambulate household distances safety and does not have reliable/consistent assistance upon return home; pt verbalizes understanding. Additionally, pt verbalizes feeling sad following inquiry from OT due to pt affect and facial expressions throughout tx; pt verbalizes he will consider requesting Lapper services following education on theirservices. Standardized Assessments [facility] 6-Click Daily Activities Help from Other: Don/Doff Regular Lower Body Clothings: A lot Help From Other: Bathing: A lot Help From Other: Toileting: A lot Help From Other: Don/Doff Upper Body Clothings: Little Help From Other: Grooming: Little Help From Other: Eating Meals: None [facility] 6 Click - Daily Activities Score: 16 Assessment Pt responds fairly to tx, limited by fatigue; benefits from skilled OT assist throughout BADL/mobility due to pt limited activity tolerance, impaired balance, limited functional endurance, pain in residual limb, decreased awareness of deficits and need for assistance, and to promote pt safety/reduce risk of falls/adverse events. OT provides education regarding skin checks and allowing residual limb to breathe with prosthesis doffed due to pt report of pain at distal end with blanchable redness present during skin check performed by therapist (RN made aware). Additionally, pt re-educated on the purpose of physical rehab considering pt does not demonstrate the ability to ambulate household distances and lacks the physical and cognitive skills needed to safely complete BADLs independently as well as pt lack of support/assistance upon d/c. Pt will continue to benefit from skilled OT services while in-house to address the findings below. OT Recommendations Discharge Destination: Subacute rehab Discharge Equipment: Defer to facility Plan Progress pt in BADL/mobility as he is able. Goals OT GOAL DETAILS Goal Established Date Time Frame Goal Status OT Goal 1: Patient will complete functional ambulation to toilet and all toileting tasks with SBA. 01/31/24 2 weeks OT Goal 2: Patient will complete full body dressing with SBA. 01/31/24 2 weeks OT Goal 3: Patient will complete 3-step grooming routine while standing sinkside with SBA. 01/31/24 2 weeks Written by Stephanie Goddard on 02/03/24 at 3:29 PM. Cosigned by Helga Page at 02/03/2024 3:46 PM EST Associated attestation - Helga Page - 02/03/2024 3:46 PM EST I saw and evaluated the patient with the OTD student. I discussed the case with the OTD student andagree with the findings and plan as documented. * Consults - Venus Bellamy RN - 02/02/2024 4:18 PM ESTAssociated Order(s): IP CONSULT TO DIABETIC EDUCATION Adult Diabetes Education Team Note Robert Hurley 58 y.o. male CSN: [id number] This is a 58 y.o. male patient was admitted to [facility] with the diagnosis of Heart Failure, DM education was consulted for Cardiovascular event. Labs: A1C 8% FSBG-PRN FSBG FSBG Other FSBG-AC FSBG-HS FSBG-3a POCBG Ranges:124-183 Current Diabetes Regimen: Farxiga 10 mg daily, Lispro 3 units TID ac, Lispro 1:50>150 ac Home Monitoring Of Diabetes Home Monitoring Meter Type: has one touch meter, needs strips Home Monitoring Frequency: Twice a day (BID) Home Monitoring Average: 200's Home Medications for Diabetes: Lantus 12 units nightly, Humalog 5-6 units TID ac ( not going by a specific order goes by how he feels), forgets doses daily usually his fast acting insulin. Any barriers/issues getting DM/RX Supplies? Yes, no PCP , limited transportation and income Education Diabetic Education Performed with patient, Dx type 2 x20 years. Pt currently doesn't have PCP. States he has went to [facility] in the past but is not in network with his insurance and he can't afford it. Pt prefers PCP in [facility] as he has transportation issues. Medication Education instructions given: The use of oral medication The use of insulin Injection sites and rotation Importance of taking basal insulin Pt stores insulin in the refrigerator, typically gives injection in arms and abdomen, forgets does daily. Discussed setting alarms on his phone to help remind him Diabetic Monitoring Education instructions given: Appropriate meter for for situation Test Times Target Goals Action to take for results outside the 80-180 Hyperglycemia causes, signs, symptoms and treatment Encouraged ac snd hs fsbs, prn symptoms, provided bs log. Pt will need test strips for one touch meter Hypoglycemia Management instructions given: Symptoms, causes, and treatment, rarely has low bs Nutrition instructions given: Appropriate meal schedule Carbohydrate containing foods Pt reports he typically eats 2 meals per day, usually skips breakfast. His meals are usually frozendinners or microwave meals like pasta. Pt reports he is on limited and relies on others to go to the store for him. Diabetic food is too expensive . Typically drinks Dt Pepsi, unsweet tea, or milk Sick Day Management instructions given: Importance of always taking basal insulin When to call the doctor Complications and Hygiene instructions given: A1C Complications Prevention Follow Ups: Provided with educational literature and the diabetic Diabetes basic booklet, gabbi hypoglycemia, cc2 diet handout, plate method Diabetes Education Team Recommendations: DM education completed. Pt needs insulin pens, test stripsfor one touch meter, would benefit from getting [facility] Anastasia Parmar made aware of education completion and findings Education Time 30 minutes Venus Bellamy RN * Progress Notes - Wei Arshad RN - 02/02/2024 12:05 PM EST Images from the original note were not included. Wound Care Consult Visit Date: 02/02/2024 Patient Name: Robert Hurley Date of : 1965 Admit Date: 01/30/2024 Reason for Consult: IP Wound Orders (From admission, onward) Start Ordered 01/31/24 154 Wound ostomy eval and treat Pressure Injury Left Buttocks Once Comments: Nursing documenting PI buttocks, left. POA 01/31/24 1544 Wound History: worsening shortness of breath. PMHx of HFrEF (33%) reportedly due to ischemic cardiomyopathy, Wound Assessment: Wound Team Summary Assessment: pt seen, able to turn himself, left buttocks with a hyperpigmented area intact and blanchable pt states no pain, not consistent with a PI, cavalon applied and offered allevyn application, however pt declined. Wound Team Plan: no further follow up needed at this time. Wei Arshad RN CWOCN 02/02/2024 12:05 PM * Progress Notes - Cameron Cabrera - 02/02/2024 11:59 AM EST Case Management Adult Progress Note Robert Hurley 58 y.o. male CSN: [id number] Admission: 01/30/2024 8:34 AM Primary Problem: Heart failure (CMS/HCC) Anticipated Discharge Date: TBD Additional Comments FRANCISCO JAVIER WHITMORE spoke with Pt re: subacute rehab recommendations. Pt declined subacute rehab and requested HHPT/OT. FRANCISCO JAVIER WHITMORE spoke with Pt re: transportation difiiculties. Pt stated he has a transport service he can call and pay a small rutledge for his transport. FRANCISCO JAVIER WHITMORE to continue to follow for discharge planning needs. Cameron Cabrera * Progress Notes - Anastasia Parmar MD - 02/02/2024 11:29 AM EST Images from the original note were not included. INPATIENT CARDIOLOGY (CA3) DAILY PROGRESS NOTE SUBJECTIVE Overview: Robert Hurley is a 58 y.o. male with significant PMHx of HFrEF (33%) reportedly due to ischemic cardiomyopathy, CAD s/p remote PCI, suspected COPD, CAMACHO cirrhosis, T2DM, CKD4, and prior L AKA who presented to [facility] on 01/30/2024 with worsening shortness of breath secondary to heart failure exacerbation. Last 24 hours: Patient reports breathing is some improved. Denies any chest pain. Appetite is good. OBJECTIVE Blood pressure (!) 148/92, pulse 84, temperature 36.7 ??C (98 ??F), temperature source Oral, resp. rate 20, height 1.829 m (6' 0.01 ), weight 85.6 kg (188 lb 11.4 oz), SpO2 100%. GENERAL: no acute distress, cooperative SKIN: warm and dry, RLE dry and scaly. EYES: EOMI ENT: intact, mucous membranes moist, no apparent injury CARDIO: 1+ RLE edema, RRR no MRG RESPIRATORY/THORAX: bibasilar crackles appreciated GASTROINTESTINAL: nondistended, soft NEUROLOGICAL: Alert and able to answer questions appropriately Results / Imaging CBC: No results found for: WBC , HGB , HCT , PLT , MCV , MCH , MCHC , RDW , NRBC Differential: No results found for: WBC , NEUTOPHILPCT , LYMPHOPCT , MONOPCT , EOSPCT , NEUTROABS Coagulation: No results found for: INR , PT , PTT , CLFGN Renal: Lab Results Component Value Date NA 136 02/02/2024 K 4.2 02/02/2024 CL 95 (L) 02/02/2024 CO2 25 02/02/2024 BUN 61 (H) 02/02/2024 CREATININE 2.97 (H) 02/02/2024 GLUCOSE 281 (H) 02/02/2024 CALCIUM 8.6 (L) 02/02/2024 MG 1.9 02/02/2024 Liver: No results found for: AST , ALT , ALPHO , BILITOT , BILIDIR Glucose: Lab Results Component Value Date PGLU 153 (H) 02/02/2024 PGLU 191 (H) 02/02/2024 PGLU 199 (H) 02/01/2024 PGLU 168 (H) 02/01/2024 PGLU 149 (H) 02/01/2024 PGLU 171 (H) 02/01/2024 Lab Results Component Value Date HGBA1C 8.0 (H) 12/17/2023 Most recent Echocardiogram (12/20/23): Interpretation Summary Left Ventricle: Based on the linear dimension and/or 2D volumes, the left ventricle is severely dilated in size. There is normal left ventricular myocardial thickness and mass. The left ventricular systolic function is moderately reduced. The LVEF as measured by biplane volume is 33%. The diastolic function is abnormal. There is grade II (moderate) diastolic dysfunction. The left ventricular filling pressure is elevated. Right Ventricle: The right ventricle is normal in size. The right ventricular systolic function is normal. Right ventricular systolic pressure is mildly elevated (35-50mmHg). The estimated right ventricular systolic pressure is 43 mmHg. Aortic Valve: There is mild aortic valve regurgitation. There is mild to moderate aortic stenosis. There is moderate (0.25-0.5) valvular aortic stenosis based upon the dimensionless index (LVOT / AV ratio). The peak gradient is 31 mmHg. The mean gradient is 18 mmHg. The estimated aortic valve area by the continuity equation is 1.6 cm2. Mitral Valve: There is moderate mitral regurgitation. Compared to the most recently available prior study, and allowing for differences in image quality and technique, AoV gradients have increased. ASSESSMENT/PLAN Robert Hurley is a 58 y.o. male with significant PMHx of HFrEF (33%) reportedly due to ischemic cardiomyopathy, CAD s/p remote PCI, suspected COPD, CAMACHO cirrhosis, T2DM, CKD4, and prior L AKA who presented to [facility] on 01/30/2024 with worsening shortness of breath secondary to heart failure exacerbation. HFrEF (33%) presumed 2/2 ischemic cardiomyopathy with acute exacerbation Acute on chronic hypoxic respiratory failure -recent discharge from [facility] for similar presentation. Was discharged on Bumex 2mg daily with PRN extra dose for increased swelling. Reports taking Bumex every other day since discharge. Has had progressive SOA. PLAN -Transition to PO 4mg bumex today given patient is clinically euvolemic -twice daily BMP during aggressive diuresis -restarting beta stacy given patient is clinically euvolemic, starting 12.5 mg daily with plan toincrease to 25 mg tomorrow if patient tolerates. -continue home farxiga -holding NARESH/ARB/ARNI and spironolactone given hyperkalemia and inconsistent medication adherence, can consider in the future when patient has reliable follow-up. Discussing access to transport with case-management. -consulted [facility] given history of multiple admissions. Patient determined to not be a candidate for advanced therapy given documented history of noncompliance and other co morbidities. 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 Takes Dulera and albuterol outpatient. -Continue Dulera, Spiriva Respimat, and DuoNebs PRN T2DM -continuing home Farxiga -continuing insulin regimen with 3U at mealtime + SSI, will continue to adjust regimen as needed CAMACHO cirrhosis, compensated -found on ultrasound 2020, no follow-ups since that time, no hx of HE/ascites/EV/SBP/HCC -LFTs elevated, likely due to congestion secondary to heart failure given the improvement after diuresis -will continue to monitor CKD4 -Cr appears to be stable when compared to values over the past year -avoiding nephrotoxins as able -holding home losartan due to hyperkalemia -monitoring with BMP Diet: regular DVT ppx: heparin Code Status: Full Dispo: CA3, progressive. Has [facility] recs but prefers home health. Anastasia Parmar MD Internal Medicine PGY-1 Cosigned by Dustin Barakat MD at 02/12/2024 8:52 PM EST Associated attestation - Dustin Barakat MD - 02/12/2024 8:52 PM EST I saw and evaluated the patient with the resident/fellow. I discussed the case with the resident/fellow and agree with the findings and plan as documented. * Clinician Note - Ena Slaughter - 02/02/2024 9:54 AM EST Occupational Therapy Attempt Patient Name: Robert Hurley Today's Date: 02/02/2024 Patient was attempted to be seen by occupational therapy 02/02/2024 for OT Treatment however patientrefused. Occupational therapy team will follow-up as patient is agreeable (and as schedule permits). Written by Ena Slaughter on 02/02/24 at 9:54 AM. * Clinician Note - Therese Maza - 02/02/2024 9:48 AM EST Physical Therapy Attempt Patient Name: Robert Hurley Today's Date: 02/02/2024 Patient was attempted to be seen by physical therapy 02/02/2024 for PT Treatment however patient refused (RN made aware). Physical therapy team will follow-up as schedule permits. Written by Therese Maza on 02/02/24 at 11:58 AM. * Progress Notes - Charito Luna MD - 02/01/2024 2:05 PM EST Images from the original note were not included. INPATIENT CARDIOLOGY (CA3) DAILY PROGRESS NOTE SUBJECTIVE Overview: Robert Hurley is a 58 y.o. male with significant PMHx of HFrEF (33%) reportedly due to ischemic cardiomyopathy, CAD s/p remote PCI, suspected COPD, CAMACHO cirrhosis, T2DM, CKD4, and prior L AKA who presented to [facility] on 01/30/2024 with worsening shortness of breath secondary to heart failure exacerbation. Last 24 hours: Patient reports breathing is some improved. Denies any chest pain. OBJECTIVE Blood pressure (!) 140/92, pulse 95, temperature 36.6 ??C (97.8 ??F), temperature source Oral, resp. rate 26, height 1.829 m (6' 0.01 ), weight 85.6 kg (188 lb 11.4 oz), SpO2 98%. GENERAL: no acute distress, cooperative SKIN: warm and dry EYES: EOMI ENT: intact, mucous membranes moist, no apparent injury CARDIO: 2+ RLE edema, RRR no MRG RESPIRATORY/THORAX: bibasilar crackles appreciated GASTROINTESTINAL: nondistended, soft NEUROLOGICAL: Alert and able to answer questions appropriately Results / Imaging CBC: No results found for: WBC , HGB , HCT , PLT , MCV , MCH , MCHC , RDW , NRBC Differential: No results found for: WBC , NEUTOPHILPCT , LYMPHOPCT , MONOPCT , EOSPCT , NEUTROABS Coagulation: No results found for: INR , PT , PTT , CLFGN Renal: Lab Results Component Value Date NA 138 02/01/2024 K 4.1 02/01/2024 CL 96 (L) 02/01/2024 CO2 29 02/01/2024 BUN 55 (H) 02/01/2024 CREATININE 2.77 (H) 02/01/2024 GLUCOSE 164 (H) 02/01/2024 CALCIUM 9.4 02/01/2024 Liver: Lab Results Component Value Date AST 39 02/01/2024 ALT 26 02/01/2024 BILITOT 1.0 02/01/2024 Glucose: Lab Results Component Value Date PGLU 149 (H) 02/01/2024 PGLU 171 (H) 02/01/2024 PGLU 169 (H) 02/01/2024 PGLU 124 (H) 01/31/2024 PGLU 172 (H) 01/31/2024 Lab Results Component Value Date HGBA1C 8.0 (H) 12/17/2023 Most recent Echocardiogram (12/20/23): Interpretation Summary Left Ventricle: Based on the linear dimension and/or 2D volumes, the left ventricle is severely dilated in size. There is normal left ventricular myocardial thickness and mass. The left ventricular systolic function is moderately reduced. The LVEF as measured by biplane volume is 33%. The diastolic function is abnormal. There is grade II (moderate) diastolic dysfunction. The left ventricular filling pressure is elevated. Right Ventricle: The right ventricle is normal in size. The right ventricular systolic function is normal. Right ventricular systolic pressure is mildly elevated (35-50mmHg). The estimated right ventricular systolic pressure is 43 mmHg. Aortic Valve: There is mild aortic valve regurgitation. There is mild to moderate aortic stenosis. There is moderate (0.25-0.5) valvular aortic stenosis based upon the dimensionless index (LVOT / AV ratio). The peak gradient is 31 mmHg. The mean gradient is 18 mmHg. The estimated aortic valve area by the continuity equation is 1.6 cm2. Mitral Valve: There is moderate mitral regurgitation. Compared to the most recently available prior study, and allowing for differences in image quality and technique, AoV gradients have increased. ASSESSMENT/PLAN Robert Hurley is a 58 y.o. male with significant PMHx of HFrEF (33%) reportedly due to ischemic cardiomyopathy, CAD s/p remote PCI, suspected COPD, CAMACHO cirrhosis, T2DM, CKD4, and prior L AKA who presented to [facility] on 01/30/2024 with worsening shortness of breath secondary to heart failure exacerbation. HFrEF (33%) presumed 2/2 ischemic cardiomyopathy with acute exacerbation Acute on chronic hypoxic respiratory failure -recent discharge from [facility] for similar presentation. Was discharged on Bumex 2mg daily with PRN extra dose for increased swelling. Reports taking Bumex every other day since discharge. Has had progressive SOA. PLAN -Continue IV 4mg bumex BID today given good response yesterday, may be able to transition to PO tomorrow -twice daily BMP during aggressive diuresis -holding home beta stacy due to inconsistent medication history -continue home farxiga -holding NARESH/ARB/ARNI given hyperkalemia -consulted [facility] given history of multiple admissions Hyperkalemia -K 5.1 on admission, initially required lokelma but has been stable today -will diurese and continue to monitor CAD s/p remote PCI -NSTEMI 01/2023, on DAPT -continuing DAPT w/ASA and plavix Suspected COPD -long reported history of COPD though has never had PFTs and 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 Takes Dulera and albuterol outpatient. -DuoNebs PRN T2DM -restarted home Farxiga -started insulin regimen with 3U at mealtime + SSI, will continue to adjust regimen as needed CAMACHO cirrhosis, compensated -found on ultrasound 2020, no follow-ups since that time, no hx of HE/ascites/EV/SBP/HCC -LFTs elevated, likely due to congestion secondary to heart failure -will continue to monitor CKD4 -Cr appears to be stable when compared to values over the past year -avoiding nephrotoxins as able -holding home losartan, will plan to restart NARESH/ARB once potassium stable -monitoring with BMP Diet: regular DVT ppx: heparin Code Status: Full Dispo: CA3, progressive. Charito Luna PGY-5 Microbiology Analyst Cosigned by Dustin Barakat MD at 02/12/2024 8:52 PM EST Associated attestation - Dustin Barakat MD - 02/12/2024 8:52 PM EST I saw and evaluated the patient with the resident/fellow. I discussed the case with the resident/fellow and agree with the findings and plan as documented. * Consults - Agatha Wilcox MD - 02/01/2024 12:01 PM ESTAssociated Order(s): Inpatient consult to cardiology Images from the original note were not included. Inpatient consult to cardiology Consult performed by: Agatha Wilcox MD Consult ordered by: Darrin Griffin MD Advanced Heart Failure Consult Note Chief Complaint Patient presents with Shortness of Breath Robert Hurley is a 58 y.o. male with HFrEF (LVEF 33%) reportedly due to ischemic cardiomyopathy, CAD s/p PCI 01/2023, CAMACHO cirrhosis, T2DM, CKD4, suspected COPD and prior L AKA. He has had multiple prior admission for decompensated heart failure. Mr. Hurley was most recently was admitted to [facility] service 12/15 - 12/24 for decompensated CHF. He required bumex gtt prior tor transition to oral diuretics. Additional GDMT was initiated; there was concern that patient had been noncompliant with medications. Prior cardiology notes state that He was discharged home from that admission with LifeVest, which he has since lost. Suspected etiology of current decompensation is poor compliance with home medication regimen. Discussion for ICD given LVEF 33%, however was felt that he should have prolonged period of sustained compliance with GDMT before re-considering this as an outpatient. His most recent GDMT includes losartan 25mg daily (previously on hydralazine/isordil but poor compliance with TID dosing), metoprolol succinate 25mg daily (increase dose at last visit), and dapagliflozin 10mg daily(new from recent hospitalization). He was also discharged on bumex 2mg daily with additional PRN dose based on weight gain/ swelling. Mr. Hurley presented back to [facility] on 01/29 for shortness of breath and lower extremity edema. Per initial H&P, he had reported taking most of his medications, but unsure for all medications. Notedthat he was taking his bumex about every other day, however was prescribed to be taken daily with additional PRN afternoon dose. Workup in ED included Hgb 11.6, Na 133, K 5.1, Cr 2.37, AST 93, ALP 368, and tbili 1.8. proBNP was >70,000; was 55k prior to recent discharge. CXR showed possible small left-sided pleural effusion and otherwise, no acute findings. He was admitted to [facility] service for diuresis. He had been diuresied with IV bumex BID with good UOP,currently net negative 6L for stay. Initially home GDMT was held; however, farxiga has since been resumed. His home beta stacy has been held given unclear compliance at home. Losartan also being held given hyperkalemia. Today, Mr. Hurley states he is feeling improved overall compared to admission. He states that his breathing is improved and right leg swelling is also much better than prior. Mr. Hurley states that he only takes his medications about 50% of the time. He reports having issues remembering to take daily medications and describes a cost barrier as well. Of note, Mr. Hurley is wheelchair bound at baseline. Review of symptoms Constitutional: +weigh gain, + fatigue, negative for decreased appetite. Cardiovascular: + SOA, + leg swelling (right), negative for chest pain, negative for syncope. Respiratory: + cough- chronic, + shortness of breath. Gastrointestinal: Negative for bloating. No N/V or diarrhea. 14 Point ROS reviewed and is otherwise negative except as per HPI. Past 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 Past 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: Diagnosis Date Personal [...] mental and behavioral disorders History of depression Surgical History Past Surgical History: Procedure Laterality Date CATH STENT PLACEMENT/ CATH PLACEMENT OF STENT N/A Cath Stent Placement from [facility] CHOLECYSTECTOMY N/A Cholecystectomy from [facility] Family History family history includes Conversions - Other in his father and mother; Diabetes in his mother; Hyperlipidemia in his father; Hypertension in his father and mother; Obesity in his mother; Other cancer in his father. Social History reports that he has been smoking cigarettes. He has never used smokeless tobacco. He reports that he does not drink alcohol and does not use drugs. Medications Current Facility-Administered Medications Medication Dose Route Frequency Provider Last Rate Last Admin acetaminophen (Tylenol) tablet 650 mg 650 mg Oral q8h PRN Anastasia Parmar MD aspirin chewable tablet 81 mg 81 mg Oral Daily Anastasia Parmar MD 81 mg at 02/01/24 0831 clopidogrel (Plavix) tablet 75 mg 75 mg Oral Daily Anastasia Parmar MD 75 mg at 02/01/24 0831 dapagliflozin (Farxiga) tablet 10 mg 10 mg Oral Daily Darrin Griffin MD 10 mg at 02/01/24 0831 glucose (Glutose) 40 % oral gel 15 grams of glucose 15 grams of glucose Sublingual q15 min PRN Anastasia Parmar MD Or dextrose 10 % (D10W) bolus 125 mL 125 mL Intravenous q15 min PRN Anastasia Parmar MD Or glucagon (human recombinant) injection 1 mg 1 mg Intramuscular q15 min PRN Anastasia Parmar MD heparin (porcine) injection 5,000 Units 5,000 Units Subcutaneous q8h [facility] Anastasia Parmar MD 5,000 Units at 02/01/24 0621 insulin lispro (Admelog) 100 units/mL injection - Correction - Standard Dose 0-5 Units SubcutaneousTID with meals Anastasia Parmar MD 1 Units at 02/01/24 0937 insulin lispro (Admelog) injection - Correction - Nighttime Dose 0-3 Units Subcutaneous Twice at night Anastasia Parmar MD Insulin Lispro (Admelog, HumaLOG) 100 UNIT/ML injection 3 Units 3 Units Subcutaneous TID with mealsAqAnastasia kaufman MD 3 Units at 02/01/24 0937 ipratropium-albuterol (Duo-Neb) 0.5-2.5 mg/3 mL nebulizer solution 3 mL 3 mL Nebulization q6h PRN Anastasia Parmar MD 3 mL at 01/30/24 2142 melatonin tablet 3 mg 3 mg Oral Nightly PRN Anastasia Parmar MD 3 mg at 01/31/24 1958 polyethylene glycol (Miralax) packet 17 g 17 g Oral Daily Anastasia Parmar MD 17 g at 01/31/24 0852 senna (Senokot) tablet 17.2 mg 2 tablet Oral Nightly Anastasia Parmar MD 17.2 mg at 01/30/242009 sodium chloride 0.9 % flush 10 mL 10 mL Intravenous q12h Anastasia Parmar MD 10 mL at 01/31/24 2325 And sodium chloride 0.9 % flush 10 mL 10 mL Intravenous PRN Anastasia Parmar MD tetrahydrozoline 0.05 % ophthalmic solution 1 drop 1 drop Both Eyes TID PRN Juan Lopez MD 1 drop at 01/31/242001 Physical Exam Constitutional: General: He is not in acute distress. Appearance: He is ill-appearing (chronically ill appearing). Comments: Appears much older than stated age, in NAD, watching TV HENT: Head: Normocephalic and atraumatic. Eyes: General: No scleral icterus. Conjunctiva/sclera: Conjunctivae normal. Cardiovascular: Rate and Rhythm: Tachycardia present. Pulmonary: Effort: Pulmonary effort is normal. Comments: Breathing comfortably on 2L NC Abdominal: General: There is no distension. Palpations: Abdomen is soft. Musculoskeletal: Right lower leg: Edema present. Comments: Left leg AKA Skin: General: Skin is warm and dry. Findings: No lesion or rash. Neurological: General: No focal deficit present. Mental Status: He is alert and oriented to person, place, and time. Psychiatric: Mood and Affect: Mood normal. Behavior: Behavior normal. Visit Vitals BP (!) 140/92 (BP Location: Left arm, Patient Position: Lying) Pulse 95 Temp 36.6 ??C (97.8 ??F) (Oral) Ht 1.829 m (6' 0.01 ) Wt 85.6 kg (188 lb 11.4 oz) SpO2 98% BMI 25.59 kg/m?? Imaging Echo, Adult Transthoracic Complete Result Date: 12/20/2023 Left Ventricle: Based on the linear dimension and/or 2D volumes, the left ventricle is severely dilated in size. There is normal left ventricular myocardial thickness and mass. The left ventricular systolic function is moderately reduced. The LVEF as measured by biplane volume is 33%. The diastolic function is abnormal. There is grade II (moderate) diastolic dysfunction. The left ventricular filling pressure is elevated. Right Ventricle: The right ventricle is normal in size. The right ventricular systolic function is normal. Right ventricular systolic pressure is mildly elevated (35-50mmHg).The estimated right ventricular systolic pressure is 43 mmHg. Aortic Valve: There is mild aortic valve regurgitation. There is mild to moderate aortic stenosis. There is moderate (0.25-0.5) valvular aortic stenosis based upon the dimensionless index (LVOT / AV ratio). The peak gradient is 31 mmHg. The mean gradient is 18 mmHg. The estimated aortic valve area by the continuity equation is 1.6 cm2.Mitral Valve: There is moderate mitral regurgitation. Compared to the most recently available priorstudy, and allowing for differences in image quality and technique, AoV gradients have increased. Echo, Adult Transesophageal (EDD) Result Date: 02/10/2023 Left Ventricle: The left ventricle is not well visualized, but is grossly normal in size. The left ventricular systolic function is mildly reduced. The LVEF is visually estimated at 40 - 45%. Unable to assess diastolic function. There is global hypokinesis of the left ventricle. Left Atrium: The left atrial size is normal. The left atrial appendage exit velocity is normal at greater than 40 cm/sec. The left atrial appendage was evaluated in multiple views and there is no thrombus seen. Intravenous injection of agitated saline demonstrates no evidence of intracardiac or intrapulmonary shunt. There is no atrial septal defect. Normal flow patterns in the pulmonary veins. Mitral Valve: The mitral valve leaflets are normal in appearance with no evidence of mitral valve prolapse. There is mild mitral regurgitation. There is no mitral stenosis. Aortic Valve: The aortic valve appears to be trileaflet. The left, right and non-coronary cusps are calcified. There is no aortic valve vegetation. There is mild aortic valve regurgitation with a centrally directed jet. There is no hemodynamically significant valvular aortic stenosis. Pericardium: No pericardial effusion. There is no recent study available for direct [id number] comparison. Echo, Adult Transthoracic Complete Result Date: 02/04/2023 Left Ventricle: The left ventricle is dilated. There is concentric hypertrophy. No left ventricularmass or thrombus is seen. The LVEF as measured by biplane volume is 32%. SV index: 44 cc/m2; cardiac index: 3.8 liters/min/m2 using the continuity equation and an LVOT dmension of 24mm. The diastolicfunction is abnormal. See diagram below for wall motion findings. Right Ventricle: The right ventricle is normal in size. The right ventricular systolic function is normal. Aortic Valve: The aortic valve appears to be trileaflet. The cusp(s) are thickened. The cusp(s) are calcified. There is aorticannular calcfication present. The noncoronary cusp is partially flail. There is a possible mass or v egetation on the aortic valve. There is moderate aortic valve regurgitation. There is calcific aortic sclerosis without hemodynamically significant aortic stenosis. The peak gradient is 22 mmHg. The mean gradient is 12 mmHg. The estimated aortic valve area by the continuity equation is 2.4 cm2. Mitral Valve: There is moderate to severe mitral regurgitation with a central jet. The estimated mitralvalve regurgitant fraction is in the severe (>/=50%) range. The mechanism for the mitral regurgitation is likely secondary to LV chamber dilatation. There is no recent study available for direct [id number] comparison. Consider further evaluation with a transesophageal echocardiogram if clinically indicated. CXR 01/29: Possible small left-sided pleural effusion. No consolidation or pneumothorax. The cardiac silhouette is mildly enlarged. Prior coronary stenting. No acute osseous findings. Labs Lab Results Component Value Date HGB 11.6 (L) 01/30/2024 HCT 37.8 (L) 01/30/2024 PLT 245 01/30/2024 CHOL 136 12/17/2023 TRIG 112 12/17/2023 HDL 51 12/17/2023 LDLCALC 65 12/17/2023 ALT 26 02/01/2024 AST 39 02/01/2024 NA 138 02/01/2024 K 4.3 02/01/2024 CREATININE 2.75 (H) 02/01/2024 BUN 53 (H) 02/01/2024 CO2 26 02/01/2024 TSH 2.51 12/16/2023 INR 1.2 (H) 12/17/2023 HGBA1C 8.0 (H) 12/17/2023 Assessment and Plan Mr. Robert Hurley is a 58 y.o. male with HFrEF (LVEF 33%) reportedly due to ischemic cardiomyopathy,CAD s/p PCI 01/2023, CAMACHO cirrhosis, T2DM, CKD4, suspected COPD and prior L AKA. HFrEF likley 2/2 ICM CAD s/p PCI 01/2023 CAMACHO cirrhosis CKD4 Suspected COPD His most recent GDMT includes losartan 25mg daily (previously on hydralazine/isordil but poor compliance with TID dosing), metoprolol succinate 25mg daily (increase dose at last visit), and dapagliflozin 10mg daily (new from recent hospitalization). He was also discharged on bumex 2mg daily with add itional PRN dose based on weight gain/ swelling. Mr. Hurley states today he is only able to take hismedications ~50% of the time due to 'not remembering' and cost. Of note, prior cardiology notes state that He was discharged home from that admission with LifeVest, which he has since lost. Suspected etiology of current decompensation is poor compliance with home medication regimen. There was a adiscussion for ICD placement given LVEF 33%, however was felt that he should have prolonged periodof sustained compliance with GDMT before re- considering this as an outpatient. Given his known noncompliance, Mr. Hurley would not be a candidate for advanced therapies or transplant evaluation. Even if was compliant on all GDMT, patient would likely need heart, liver, and kidney transplant which is not an available option at . Given CKD4 and cirrhosis, he would also not be a likely LVAD candidate. Of note, patient is also wheelchair bound with reported decreased mobility and function at home given his AKA. On brief discussion, Mr. Hurley lives alone and does not appear to have good social support. This also presents another major barrier to advanced therapies. Recommendations - Agree with ongoing diuresis with IV bumex per primary team - Current in patient GDMT: farxiga 10mg daily - As patient now closer to euvolemic status, would resume beta stacy (can start at lower dose andtitrate throughout hospitalization), has been held on admission as unsure compliance at home - Given hyperkalemia (cr at baseline), agree with holding home losartan; can consider afterload reduction with hydralazine while inpatient if needed; when possible initiate losartan for GDMT - Patient is not a candidate for advanced therapies or transplant at this time given documented history of noncompliance and additional comorbidities Patient will be seen and formally staffed within 24 hours and assessed in collaboration with Dr. Hodgson. Recommendations are not finalized until signed by attending. Agatha Wilcox MD Microbiology Analyst PGY-4 Pager [phone] or via [employer] chat Cosigned by Maritza Hodgson MD at 02/02/2024 12:36 PM EST Associated attestation - Maritza Hodgson MD - 02/02/2024 12:36 PM EST I saw and evaluated the patient with the resident/fellow. I discussed the case with the resident/fellow and agree with the findings and plan as documented. * Progress Notes - Rom Carlisle RN - 02/01/2024 11:58 AM EST Case Management Adult Initial Progress Note Robert Hurley 58 y.o. male CSN: [id number] Admission: 01/30/2024 8:34 AM Primary Problem: Heart failure (CMS/HCC) Drywall Hanger reviewed chart and spoke with patient to complete this Initial Case Management Assessment. PCP: Pcp, No Emergency Contact: No emergency contact information on file. Insurance: Primary Visit Coverage Payer Plan Sponsor Code Group Number Group Name MEDICARE MEDICARE A & B Primary Visit Coverage Subscriber Subscriber ID Subscriber Name Subscriber SSN Subscriber Address [id number] ROBERT HURLEY [phone] [place] [address] Secondary Visit Coverage Payer Plan Sponsor Code Group Number Group Name MEDICAID-[facility] MEDICAID TRADITIONAL Secondary Visit Coverage Subscriber Subscriber ID Subscriber Name Subscriber SSN Subscriber Address [id number] ROBERT HURLEY [id number] [place] [address] Patient information: Primary Caregiver: Self Daily Living Activities: Functional Status: Independent Living Arrangements: Alone Type of Residence: Private residence, Single Level [address] [address] Current DME: Equipment Currently Used at Home: prosthesis, oxygen, wheelchair, manual Income Information: Income Source: Disabled Income/Expense Information: Income meets expenses Current Resources Utilized: None Housing Circumstances-Z Codes: Housing Circumstances (select all that apply): Low Income (101-300% Federal Poverty Guidlines) - Z596 Anticipated Discharge Date: TBD Patient's Discharge Goal: Patient/Family Anticipates Transition to: home Assistance Available at Discharge: Availability of Care Givers (#Hours): 1-4 hours Discharge Transport: Transportation Anticipated: medical transport Follow Up Transport: Transportation Needed to Follow up Appoinments: Medical Transport Living Will/Advance Directive/Power of Parking Enforcement Officer /Guardian: Unable to assess: No Have you reviewed your Advance Directive and is it valid for this stay?: No Advance Directive: Patient would not like information Information Provided on Healthcare Directives: No Pre-existing DNR/DNI Order: No Patient Requests Assistance: No Additional Comments: Cm spoke to patient at bedside about Cm role in discharge planning. Cm verified Emergency contact and patient address as [address] Patient is independent with ADLs prior to admission. Patient denies use of any HH or dialysis prior to admission, but uses a Left BKA prosthetic, wheelchair, and oxygen. Patient lives alone and has family/ friends that are agreeable and able to provide support if needed. Patient has Medicare A and B/ Medicaid insurance and has prescription coverage. Patient pharmacy is [facility]. Medicaid transport will transport home when medicallyready for discharge. Cm will follow. No RN CM/SW needs identified. Will continue to follow and assist. Patient was agreeable to answer SDOH questions and no help is needed at this time. Rom Carlisle, RN * Nursing Note - Laura Singleton - 01/31/2024 3:57 PM EST Date Falls Tips discussed with patient: 01/31/24 Fall Risk Prevention territory representative discussed and understanding verbalized: yes Fall Prevention flyer discussed with patient/family and left at bedside: yes Personalized Fall Risks identified and discussed with patient and marked on territory representative: yes Personalized Fall Interventions identified and discussed with patient and marked on territory representative: yes-Patient agreed to zone 1. Placed on territory representative and bedside RN informed. Fall Risk Prevention territory representative placed on bathroom door and bedside staff informed: yes * Care Plan - Lynda Gtz RN - 01/31/2024 1:14 PM EST Problem: Adult Inpatient Plan of Care Goal: Plan of Care Review Outcome: Ongoing, Progressing Goal: Patient-Specific Goal (Individualized) Outcome: Ongoing, Progressing Goal: Absence of Hospital-Acquired Illness or Injury Outcome: Ongoing, Progressing Goal: Optimal Comfort and Wellbeing Outcome: Ongoing, Progressing Goal: Readiness for Transition of Care Outcome: Ongoing, Progressing * Progress Notes - Anastasia Parmar MD - 01/31/2024 10:37 AM EST Images from the original note were not included. INPATIENT CARDIOLOGY ([facility]3) DAILY PROGRESS NOTE SUBJECTIVE Overview: Robert Hurley is a 58 y.o. male with significant PMHx of HFrEF (33%) reportedly due to ischemic cardiomyopathy, CAD s/p remote PCI, suspected COPD, CAMACHO cirrhosis, T2DM, CKD4, and prior L AKA who presented to [facility] on 01/30/2024 with worsening shortness of breath likely secondary to heart failure exacerbation. Last 24 hours: Reports stable to slightly improved shortness of breath. No chest pain. Appetite is good. OBJECTIVE Blood pressure (!) 127/101, pulse 75, temperature 37.1 ??C (98.7 ??F), temperature source Oral, resp. rate 13, height 1.829 m (6'), weight 87 kg (191 lb 12.8 oz), SpO2 100%. GENERAL: no acute distress, cooperative SKIN: warm and dry, no rashes, wounds, ulcers EYES: EOMI ENT: intact, mucous membranes moist, no apparent injury CARDIO: 3+ BLE edema, RRR no MRG RESPIRATORY/THORAX: respirations non-labored, good air movement with end- expiratory wheeze GASTROINTESTINAL: nondistended, soft NEUROLOGICAL: CN II-IX intact grossly, interactive and normal tone PSYCHOLOGICAL: appropriate mood and behavior Results / Imaging CBC: No results found for: WBC , HGB , HCT , PLT , MCV , MCH , MCHC , RDW , NRBC Differential: No results found for: WBC , NEUTOPHILPCT , LYMPHOPCT , MONOPCT , EOSPCT , NEUTROABS Coagulation: No results found for: INR , PT , PTT , CLFGN Renal: Lab Results Component Value Date NA 134 (L) 01/31/2024 K 5.1 (H) 01/31/2024 CL 98 01/31/2024 CO2 23 01/31/2024 BUN 46 (H) 01/31/2024 CREATININE 2.72 (H) 01/31/2024 GLUCOSE 248 (H) 01/31/2024 CALCIUM 8.4 (L) 01/31/2024 MG 2.1 01/30/2024 Liver: Lab Results Component Value Date AST 47 01/30/2024 ALT 36 01/30/2024 BILITOT 1.5 (H) 01/30/2024 Glucose: Lab Results Component Value Date PGLU 249 (H) 01/31/2024 PGLU 212 (H) 01/31/2024 PGLU 355 (H) 01/30/2024 PGLU 426 (H) 01/30/2024 PGLU 243 (H) 01/30/2024 Lab Results Component Value Date HGBA1C 8.0 (H) 12/17/2023 Most recent Echocardiogram (12/20/23): Interpretation Summary Left Ventricle: Based on the linear dimension and/or 2D volumes, the left ventricle is severely dilated in size. There is normal left ventricular myocardial thickness and mass. The left ventricular systolic function is moderately reduced. The LVEF as measured by biplane volume is 33%. The diastolic function is abnormal. There is grade II (moderate) diastolic dysfunction. The left ventricular filling pressure is elevated. Right Ventricle: The right ventricle is normal in size. The right ventricular systolic function is normal. Right ventricular systolic pressure is mildly elevated (35-50mmHg). The estimated right ventricular systolic pressure is 43 mmHg. Aortic Valve: There is mild aortic valve regurgitation. There is mild to moderate aortic stenosis. There is moderate (0.25-0.5) valvular aortic stenosis based upon the dimensionless index (LVOT / AV ratio). The peak gradient is 31 mmHg. The mean gradient is 18 mmHg. The estimated aortic valve area by the continuity equation is 1.6 cm2. Mitral Valve: There is moderate mitral regurgitation. Compared to the most recently available prior study, and allowing for differences in image quality and technique, AoV gradients have increased. ECG/Telemetry: 01/30/24: NSR, possible left atrial enlargement, left axis deviation, left ventricular hypertrophy with QRS widening, t-wave abnormality, consider lateral ischemia. CXR 01/29 Possible small left-sided pleural effusion. ASSESSMENT/PLAN Robert Hurley is a 58 y.o. male with significant PMHx of HFrEF (33%) reportedly due to ischemic cardiomyopathy, CAD s/p remote PCI, suspected COPD, CAMACHO cirrhosis, T2DM, CKD4, and prior L AKA who presented to [facility] on 01/30/2024 with worsening shortness of breath likely secondary to heart failure exacerbation. HFrEF (33%) presumed 2/2 ischemic cardiomyopathy with acute exacerbation Acute on chronic hypoxic respiratory failure -recent discharge from [facility] for similar presentation. Was discharged on Bumex 2mg daily with PRN extra dose for increased swelling. Reports taking Bumex every other day since discharge. Has had progressive SOA. 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 Takes Dulera and albuterol outpatient. -started DuoNebs PRN -as patient is presenting with cough and respiratory symptoms will monitor this closely for signs of developing COPD exacerbation. No concern for PNA noted on CXR. T2DM -restarted home Farxiga -started insulin regimen with 3U at mealtime + SSI, will continue to adjust regimen as needed CAMACHO cirrhosis, compensated -found on ultrasound 2020, no follow-ups since that time, no hx of HE/ascites/EV/SBP/HCC -LFTs elevated, likely due to congestion secondary to heart failure -will continue to monitor with am CMP CKD4 -Cr appears to be stable when compared to values over the past year -avoiding nephrotoxins as able -holding home losartan, will plan to restart tomorrow -monitoring with BMP Diet: regular DVT ppx: heparin Code Status: Full Dispo: CA3, progressive. Anastasia Parmar MD, PGY-1 Internal Medicine 01/31/2024 10:37 AM Cosigned by Dustin Barakat MD at 02/12/2024 8:54 PM EST Associated attestation - Dustin Barakat MD - 02/12/2024 8:54 PM EST I saw and evaluated the patient with the resident/fellow. I discussed the case with the resident/fellow and agree with the findings and plan as documented. * Progress Notes - Ena Slaughter - 01/31/2024 10:16 AM EST OCCUPATIONAL THERAPY EVALUATION PATIENT DATA Patient Name Robert Hurley Session Date 01/31/2024 OT Discharge Recommendations Subacute rehab Equipment Recommendations Defer to facility HISTORY Robert Hurley is 58 y.o. male admitted 01/30/2024 for work-up of Heart failure ([facility]). Hospital Course 1. Acute on chronic systolic congestive heart failure ([facility]) Procedures Past 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 Patient has a past medical history of Personal history of other diseases of the circulatory system,Personal history of other diseases of the circulatory system, Personal history of other diseases ofthe digestive system, Personal history of other diseases of the musculoskeletal system and connective tissue, Personal history of other diseases of the nervous system and sense organs, Personal history of other diseases of the respiratory system, Personal history of other diseases of the respiratory system, and Personal history of other mental and behavioral disorders. Past Surgical History Patient has a past surgical history that includes Cholecystectomy (N/A) and cath stent placement/ cath placement of stent (N/A). PRECAUTIONS Medical Precautions Medical Precautions: Fall precautions SUBJECTIVE PARTICIPANTS IN CARE Patient/Caregiver Comments RN cleared pt for therapy. Patient agreeable for OT evaluation this morning. Visitors Present Family/Caregiver Present: No PRESENTATION Oxygen Supplemental oxygen Nasal cannula 2 L/min Lines and Tubes Peripheral IV 01/30/24 Right Antecubital (Active) Pre-Session Sitting: edge of bed, Lines intact RN cleared pt for therapy. Post-Session Sitting in chair, Chair alarm, Lines intact, RN notified, Call light in reach Patient positioned for comfort, all needs within reach. HOME LIVING/SET-UP Lives With Alone Home Type Apartment Home Equipment Rolling walker, Quad cane, Wheelchair-manual, shower chair (left prosthetic) Home Layout One level, Stairs to enter without rails Number of Stairs: 2 Bathroom Layout Tub/Shower combo Bathroom: Toilet: Standard Additional Comments 2L O2 at baseline PRIOR LEVEL OF FUNCTION Receives help from Friend (friend assists with laundry and transport to MD appts) Level of Mobility Ambulatory- household only Mobility [place] Independent transfers without device (Uses wheel chair majority of the time, can ambulate with rolling walker short distances) History of Falls No ADL Performance ADL Performance: Independent PATIENT/FAMILY GOALS No goals stated at this time. OBJECTIVE PAIN Patient initially denies pain, however reports 8/10 pain in left residual limb during ambulation. Patient positioned for comfort at end of session. DELIRIUM SCREENING Mckinley Agitation Sedation Scale (RASS): Alert and calm Confusion Assessment Method-ICU (CAM-ICU/PCAM-ICU) Feature 3: Altered Level of Consciousness: Negative COGNITION Overall Cognitive Status Within Functional Limits Arousal/Alertness Appropriate responses to stimuli Mood/Behavior Alert Orientation x4 Command Following Single Step Commands: Consistently Multi-Step Commands: Consistently Method of Communication Verbal Additional Observations Attention Span: Appears intact VISION Baseline Vision Glasses reading Current Vision (if different) Intact RIGHT UPPER EXTREMITY EXAMINATION Range of Motion Within Functional Limits Manual Muscle Testing Within functional limits Light Touch Sensation Mild impairment (Baseline neuropathy) LEFT UPPER EXTREMITY EXAMINATION Range of Motion Within Functional Limits Manual Muscle Testing Within functional limits Light Touch Sensation Mild impairment (Baseline neuropathy) RIGHT LOWER EXTREMITY EXAMINATION Range of Motion Within Functional Limits Manual Muscle Testing Within functional limits Light Touch Sensation Mild impairment (baseline neuropathy) LEFT LOWER EXTREMITY EXAMINATION Range of Motion Within Functional Limits (Hip ROM, h/o L AKA) Manual Muscle Testing Manual Muscle Testing: Within functional limits (Hip WFL, h/o L AKA) Light Touch Sensation Intact BED MOBILITY Level of [place] Physical/Non-physical Assist Adaptive Equipment Utilized Comments Patient was received sitting EOB upon therapist arrival. TRANSFERS Level of [place] Physical/Non-physical Assist Adaptive Equipment Utilized Sit to Stand Contact guard Verbal Cues, Nonverbal cues (demo/gestures), 1 person + 1 person to manage equipment, Set-up required Walker, rolling Stand to sit Contact guard Set-up required, Verbal Cues, Nonverbal cues (demo/gestures), 1 person +1 person to manage equipment Walker, rolling FUNCTIONAL MOBILITY Ambulation Contact guard assist, Minimal verbal cues 50ft Rolling walker Comments BALANCE Postural Appearance Posture: Stooped posture, Forward head Level of [place] Balance Support Static Sit Standby assist Feet supported, Right upper extremity support, Left upper extremity support Dynamic Sit Standby assisst Feet supported Static Stand Contact guard Right upper extremity support, Left upper extremity support (via RW) Dynamic Stand Minimum assistance Right upper extremity support, Left upper extremity support (via RW) STANDARDIZED ASSESSMENTS [facility] 6-Click Daily Activities Help from Other: Don/Doff Regular Lower Body Clothings: A lot Help From Other: Bathing: A lot Help From Other: Toileting: A lot Help From Other: Don/Doff Upper Body Clothings: Little Help From Other: Grooming: Little Help From Other: Eating Meals: None [facility] 6 Click - Daily Activities Score: 16 OT INTERVENTIONS SELF-CARE Treatment Minutes (if applicable) 10 Comments: The patient engaged in skilled intervention for progression towards independence in basicself-cares and in preparation for functional ADL transfers. The patient benefited from the following OT interventions: Increased time provided for completion of task and to optimize participation. Skilled management of medical lines/tubes to reduce fall risk with functional ADL transfers. Increased skilled time provided for monitoring of vitals for patient tolerance to activity - pt on 2L O2 via NC, VSS throughout session. Encouragement and therapeutic use of self for maximized volitional effort and task attempts. Environmental set-up to ensure safety and accessibility to all needed areas of treatment space. Level of [place] Interventions Grooming Setup, SBA Chair level Patient performed facial hygiene in supported sit s/p provision of washcloth. Lower Body Dressing Pants Level of Assistance: Moderate assistance Prosthetic Level of Assistance: Maximum assistance Anticipated, per clinical judgement. Toileting Patient completes sit<>stand and ambulation of partial household distance with CGA in order to simulate functional toilet transfers. Household/ Community Re-Entry Patient challenged to perform functional mobility in hallway to address functional endurance, environmental navigation, and prepare patient for community re-entry. Pt navigated a distance of 50 ft with use of four wheeled walker. Therapist provided MIN verbal and visual cues for postural control, hand placement, device management, pacing and weight shifting to improve dynamic balance and safety awareness. ASSESSMENT OT FINDINGS The patient is a 58 yo M, seen today for OT evaluation. The patient was admitted due to HFrEF 2/2 ischemic cardiomyopathy with acute exacerbation. The patient tolerated OT evaluation fairly, with full participation limited by rapid onset of fatigue. The patient is currently performing below functional baseline, with independence mainly limited by deficits as listed below: Impaired ADL performance, Impaired IADL performance, Decreased endurance/ventilation/gas exchange, Impaired functional mobility, Impaired balance Compared to functional baseline, patient now requires increased assist for all BADLs, IADLs, and functional mobility. Due to deficits, continued skilled OT warranted for maximized independence and participation in valued occupations, and to optimize safety with return to routines. The patient wouldbe unsafe to return home if they were to need to have quick access to exit routes within home, to bathroom if experiencing bowel/bladder urgency, and with other home safety scenarios. Recommend discharge to subacute rehab for optimal progression towards therapy goals. Rehab Potential (if identified) Good, to achieve stated therapy goals Barriers to Discharge (if identified) Comorbidities, Lack of family support EVAL COMPLEXITY Occupational Profile Expanded review of medical/therapy records and additional review of physical, cognitive, or psychosocial history Performance Deficits Performance Deficits: Activities of daily living (ADLs), Body functions, Personal, Physical, Body structures, Instrumental activities of daily living (IADLs), Motor skills, Social, Temporal, Process skills, Habits, Routines, Roles, Social participation, Leisure Clinical Decision Making Moderate Overall Eval Complexity Moderate OT RECOMMENDATIONS Discharge Destination Subacute rehab Discharge Equipment Defer to facility PLAN Planned OT Interventions ADL retraining, IADL retraining, Balance training, Bed mobility Training, Transfer training, Functional mobility, Strengthening OT Frequency 2 - 5 times per week OT Duration 2 weeks GOALS OT GOAL DETAILS Time Frame OT Goal 1: Patient will complete functional ambulation to toilet and all toileting tasks with SBA. 2 weeks OT Goal 2: Patient will complete full body dressing with SBA. 2 weeks OT Goal 3: Patient will complete 3-step grooming routine while standing sinkside with SBA. 2 weeks Written by Ena Slaughter on 01/31/24 at 1:49 PM. * Progress Notes - Enedelia Nino, PT - 01/31/2024 10:15 AM EST Physical Therapy Evaluation Patient Name: Robert Hurley Today's Date: 01/31/2024 PT Discharge Recommendations: Subacute rehab Equipment Recommended: Defer to facility History Robert Hurley is 58 y.o. male admitted 01/30/2024 for work-up of Heart failure ([facility]). Problem List Active Hospital Problems Diagnosis Date Noted Heart failure (CMS/HCC) 01/30/2024 Procedures Past 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 Patient has a past medical history of Personal history of other diseases of the circulatory system,Personal history of other diseases of the circulatory system, Personal history of other diseases ofthe digestive system, Personal history of other diseases of the musculoskeletal system and connective tissue, Personal history of other diseases of the nervous system and sense organs, Personal history of other diseases of the respiratory system, Personal history of other diseases of the respiratory system, and Personal history of other mental and behavioral disorders. Past Surgical History Patient has a past surgical history that includes Cholecystectomy (N/A) and cath stent placement/ cath placement of stent (N/A). Precautions Medical Precautions: Fall precautions Subjective Patient reports he is afraid of heights and that is why he doesn't want his blinds opened in his room. Participants in Care Family/Caregiver Present: No House Superintendent: Not Applicable Presentation Oxygen Therapy: Supplemental oxygen O2 Delivery Method: Nasal cannula O2 Flow Rate (L/min): 2 L/min Lines and Tubes: Intravenous access, Telemetry (pulse ox) Pre-Session: Sitting: edge of bed, Lines intact Pre-Session Comments: RN cleared pt for therapy. Patient already wearing his left prosthetic leg upon arrival to room. Post-Session: Sitting in chair, Chair alarm, Lines intact, RN notified, Call light in reach Post-Session Comments: Patient positioned for comfort, all needs within reach. Home Living/Set-up Lives With: Alone Home Type: Apartment Home Adaptive Equipment: Rolling walker, Quad cane, Wheelchair-manual, shower chair (left prosthetic) Home Layout: One level, Stairs to enter without rails Number of Stairs: 2 Bathroom: Tub/Shower: Tub/Shower combo Bathroom: Toilet: Standard Home Living Comments: 2L O2 at baseline. Patient reports he has had L AKA x 3 years. Patient reports he needs a hospital bed because he can't breathe laying flat and has had to sleep in a recliner chair at times. Prior Level of Function Receives Help From: Friend (friend assists with laundry and transport to MD appts) Level of Mobility: Ambulatory- household only Mobility [place]: Independent transfers without device (Uses wheel chair majority of the time,can ambulate with rolling walker short distances) History of Falls: No ADL Performance: Independent Patient/Family Goals None stated. Objective Vital Signs Pre-Session Post-Session Heart Rate (BPM) 80 87 O2 Saturation (%) 100 100 Resp Rate (BPM) 23 17 Pain Patient reported no pain at rest, but 8/10 pain in his left leg when weight bearing during ambulation. Patient states he didn't notice any wounds/redness on his residual limb when he got his leg on this morning. Patient declined to remove his prosthesis once up in chair after walk. RN aware. Delirium Screening Mckinley Agitation Sedation Scale (RASS): Alert and calm Confusion Assessment Method-ICU (CAM-ICU/PCAM-ICU) Feature 3: Altered Level of Consciousness: Negative Cognition Overall Cognitive Status: Within Functional Limits Arousal/Alertness: Appropriate responses to stimuli Mood/Behavior: Alert Orientation Level: Oriented X4 Single Step Commands: Consistently Multi-Step Commands: Consistently Method of Communication: Verbal Vision - Basic Assessment Baseline Vision: Glasses reading Current Vision: Intact Right Upper Extremity Examination RUE Assessment: Within Functional Limits Manual Muscle Testing - RUE: Within functional limits Sensation Light Touch: Right Upper Extremity: Mild impairment (baseline neuropathy) Left Upper Extremity Examination LUE ROM Assessment LUE Assessment: Within Functional Limits Manual Muscle Testing - LUE Manual Muscle Testing - LUE: Within functional limits Sensation Light Touch: Left Upper Extremity: Mild impairment (baseline neuropathy) Right Lower Extremity Examination RLE ROM Assessment RLE Assessment: Within Functional Limits Manual Muscle Testing - RLE Manual Muscle Testing - RLE: Within functional limits Sensation Light Touch: Right Lower Extremity: Mild impairment (baseline neuropathy) Left Lower Extremity Examination LLE Assessment: Within Functional Limits (Hip ROM, h/o L AKA) Manual Muscle Testing: Within functional limits (Hip WFL, h/o L AKA) Sensation Light Touch: Left Lower Extremity: (Residual limb intact; AKA) Therapeutic Activity (10 minutes) Patient participated in PT interventions targeting functional strength and endurance to improve mobility. See bed mobility, transfers, and ambulation sections for details. Additional time required for line management and room set- up for safe mobility. Bed Mobility Bed Mobility Interventions: Patient sitting up on EOB upon arrival to room and left sitting up in chair at end of session. Transfers Transfer Exam: Sit to stand Level of [place]: Contact guard Physical/Nonphysical Assist: Verbal Cues, Nonverbal cues (demo/gestures), 1 person + 1 person to manage equipment, Set-up required Assistive Device: Walker, rolling Transfer Exam: Stand to Sit Level of [place]: Contact guard Physical/Nonphysical Assist: Set-up required, Verbal Cues, Nonverbal cues (demo/gestures), 1 person+ 1 person to manage equipment Assistive Device: Walker, rolling Ambulation Device: Rolling walker Assistance: Contact guard assist, Minimal verbal cues Distance : x 50 feet Ambulation Comments: Patient with mild forward flexed posture, decreased foot clearance, slower dilshad, wears shoe on right foot loose (laces not tied), varying step lengths, downward gaze, L AKA prosthesis. Balance Postural Appearance Posture: Stooped posture, Forward head Static Sitting Balance Static Sitting-Balance Support: Feet supported, Right upper extremity support, Left upper extremitysupport Static Sitting-Level of Assistance: Standby assist Dynamic Sitting Balance Dynamic Sitting-Balance Support: Feet supported Level of Assistance: Standby assisst Static Standing Balance Static Standing-Balance Support: Right upper extremity support, Left upper extremity support (via RW) Static Standing-Level of Assistance: Contact guard Dynamic Standing Balance Dynamic Standing-Balance Support: Right upper extremity support, Left upper extremity support (via RW) Dynamic Standing Level of Assistance: Minimum assistance Standardized Assessments [facility] 6-Clicks Mobility Assessment Difficulty patient has turning over in bed (including adjusting bedclothes, sheets, and blankets)?:A little Difficulty patient has sitting down on and standing up from a chair with arms (wheelchair, bedside commode, etc.)?: A little Difficulty patient has moving from lying on back to sitting on the side of the bed?: A little How much help does the patient need moving to and from a bed to a chair (including a wheelchair)?: A little How much help does the patient need to walk in hospital room?: A little How much help does the patient need climbing 3-5 steps with a railing?: A lot [facility] 6-Clicks Mobility Assessment Total : 17 Assessment Patient is not at his baseline and will continue to benefit from further skilled inpatient PT intervention during remainder of hospital stay to address identified impairments and progress towards independence with functional mobility. Impairments: Decreased endurance, ventilation, and/or gas exchange, Impaired functional mobility/transfers, Decreased strength, Impaired vision/visual processing, Impaired balance, Impaired gait dynamics/performance, Impaired postural/trunk control, Impaired sensation/sensory processing, Pain Activity Limitations: Inability to ambulate community distances, Inability to complete ADLs independently, Inability to ambulate household distances, Inability to transfer independently, Inability toambulate independently Participation Restrictions: Self-care, Home management, Community leisure Activity Tolerance: Tolerates 30 min activity with multiple rests Evaluation/Treatment Tolerance: Patient limited by fatigue Rehab Potential: Good, to achieve stated therapy goals Eval Complexity History Profile: 1 - 2 personal factors and/or comorbidities Clinical Presentation: Evolving clinical presentation with changing characteristics Clinical Decision Making: Moderate complexity PT Recommendations Discharge Destination: Subacute rehab Discharge Equipment: Defer to facility Plan Planned PT Interventions Balance training, Bed mobility training, Gait training, Transfer training, Prosthetic fitting/training, Strengthening, Functional Mobility, Caregiver training PT Frequency 2 - 5 times per week PT Duration 2 weeks Goals PT GOAL DETAILS Time Frame PT Goal 1: Patient will be Modified Independent with all bed mobility to return to PLOF. 2 weeks PT Goal 2: Patient will transfer sit < > stand with Modified Independent with appropriate assistive device to reduce caregiver burden. 2 weeks PT Goal 3: Patient will ambulate 150' with RWx SBA for household distances. 2 weeks PT Goal 4: Patient will ascend/descend 2 stairs with Min A to access home. (ONLY IF D/C HOME) 2 weeks Written by Enedelia Nino, PT on 01/31/24 at 2:33 PM. * Hospital Course - John Phillips MD - 01/30/2024 4:19 PM EST Discharge Hospital Course Patient: Robert Hurley Date of Service: 02/05/2024 Admit Date: 01/30/2024 Hospital Day: 6 Location: 126/126A Attending Provider: No att. providers found Primary Care Provider: Pcp, No CODE STATUS: Prior Robert Hurley is a 58 y.o. male with Shortness of Breath admitted with Heart failure ([facility]) Inpatient Medication Changes: -2mg bumex daily with additional 2mg PRN for weight gain of more than 3lb in 1 day or 5lb in 1 week -Start atorvastatin 80mg nightly for cholesterol -Start hydralazine 25mg TID for blood pressure and heart failure -Start Isordil 10mg TID for blood pressure and heart failure -Semaglutide 0.25 mg weekly for 4 weeks then increase to 0.5mg per week for diabetes and glucose -Decrease insulin to 5u nightly given we started semaglutide -STOP Taking plavix 75mg -STOP taking losartan due to hyperkalemia Items for Follow-Up After Hospital Discharge: - Please follow up in high risk discharge clinic in 1 week for repeat labs to monitor K - Please follow up with Dr. Barakat for cardiology in 2-3 weeks for continued management of heart failure. Counseled on the necessity of follow up and instructed to call the office for telehealth if unable to find transportation - Please follow up with your PCP close to home for continued management of chronic conditions Full Hospital Course by Problem: Robert Hurley is a 58 y.o. male with significant PMHx of HFrEF (33%) reportedly due to ischemic cardiomyopathy, CAD s/p remote PCI, suspected COPD, CAMACHO cirrhosis, T2DM, CKD4, and prior L AKA who presented to [facility] on 01/30/2024 with worsening shortness of breath secondary to heart failure exacerbation. #HFrEF (33%) presumed 2/2 ischemic cardiomyopathy with acute exacerbation #Acute on chronic hypoxic respiratory failure -Recent discharge from [facility] for similar presentation. Was discharged on Bumex 2mg daily with PRN extra dose for increased swelling. Reports taking Bumex every other day since discharge. Has had progressive SOA -Does not meet requirements for home O2 given saturations >88% on RA, but notes he bought a concentrator from [employer] -Echo from 12/19 with LVEF 33% -Consulted [facility] given history of multiple admissions. Patient determined to not be a candidate for advanced therapy given documented history of noncompliance and other co morbidities. -Diuresed aggressively, anticipate dry weight 188lb END RESULT: -Continue 2mg bumex every day with PRN 2mg if weight gain >3lb in 1 day or >5lb in 1 week. Discussed with patient the importance of continuing to take this medicine daily -GDMT with Metoprolol 50mg, Farxiga 10mg; Start Isordil/Hydralazine due to inability to tolerate MRA/ARNI due to hyperkalemia -Follow up in high risk discharge clinic in 1 week, with home PCP in 1-[address] Barakat in 2-3 weeks -Given patient's inability to make appointments due to travel costs, we counseled that if he cannotmake appointments in person, he should call for a telehealth appointment #Hyperkalemia -K 5.1 on admission, initially required lokelma stable at 4.7 prior to discharge w/o Lokelma END RESULT: -STOP Losartan due to hyperkalemia -Follow up with [facility] for repeat BMP, K in 1 week #CAD -NSTEMI 01/2023, on DAPT PLAN: -continuing ASA -START atorvastatin 80mg at bedtime -STOP Plavix as NSTEMI was medically managed #Suspected COPD -long reported history of COPD though has never had PFTs and 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 Takes Dulera and albuterol outpatient. -Continued Dulera, Spiriva Respimat and albuterol #T2DM -continuing home Farxiga -Start Ozempic 0.24 mg for 4 weeks then increase to 0.5mg -Decrease home insulin regimen to 5u nightly #MASH cirrhosis, compensated -found on ultrasound 2020, no follow-ups since that time, no hx of HE/ascites/EV/SBP/HCC -LFTs elevated, likely due to congestion secondary to heart failure given the improvement after diuresis #CKD4 -Cr appears to be stable when compared to values over the past year -STOP Losartan END RESULT: -Patient should follow up with nephrology outpatient - he has been previously scheduled but unable to make appointment #HTN -Stop Losartan -START Isordil, Hydralazine * H&P - Anastasia Parmar MD - 01/30/2024 1:14 PM EST Images from the original note were not included. INPATIENT CARDIOLOGY ([facility]) HISTORY & PHYSICAL History Of Present Illness Robert Hurley is a 58 y.o. male with significant PMHx of HFrEF (33%) reportedly due to ischemic cardiomyopathy, CAD s/p remote PCI, suspected COPD, CAMACHO cirrhosis, T2DM, CKD4, and prior L AKA who presented to [facility] on 01/30/2024 with worsening shortness of breath. He said his shortness of breath started yesterday at 9:30 when he got into bed. He had to get up to his wheelchair and sleep that way to achieve relief. At baseline, he sleeps on 2 pillows and said this has been his normal for a few years. He is on 2L O2 at home and has not had to increase his O2, but feels like he was gasping for air while lying in bed. He has not noticed worsening fluid buildup on his right lower extremity. He said his dry weight, that he knows of, is about 170lb. He reports compliance to medications, but was unsure if he had taken his blood thinners. He takes his water pill, Bumex 2mg, about every other day.He denies fever, chills, but endorses cough with clear sputum production that is near baseline. He was recently admitted to [facility] from 12/15 to 12/24 for decompensated HFrEF exacerbation. Echocardiogram at the time revealed LVEF 33% with mild-moderate aortic stenosis. He responded well to IV Bumex and appeared euvolemic, weighing 192lb on day of discharge. Discussion regarding permanent Icd placement was had, but ultimately agreed upon with patient that he should have prolonged period of sustained compliance with GDMT prior to consideration. He had JOSE recommendation from PT/OT, but electedto home instead. ED Course: He is HDS and afebrile with mild tachycardia and elevated BP, saturating 100% on home 2L. Nasal cannula removed and patient saturated >96% on RA, but stated he felt like he smothering, so 2LNC was replaced. Labs significant for Hgb 11.6, Na 133, K 5.1, Cr 2.37, AST 93, ALP 368, and tbili 1.8. Past 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 Past 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: Diagnosis Date Personal [...] mental and behavioral disorders History of depression Surgical History Past Surgical History: Procedure Laterality Date CATH STENT PLACEMENT/ CATH PLACEMENT OF STENT N/A Cath Stent Placement from [facility] CHOLECYSTECTOMY N/A Cholecystectomy from [facility] Family History family history includes Conversions - Other in his father and mother; Diabetes in his mother; Hyperlipidemia in his father; Hypertension in his father and mother; Obesity in his mother; Other cancer in his father. Social History Tobacco use: Denies. Alcohol use: Denies any significant recent usage. Other: Denies any recent illicit drug use. Allergies Penicillins Home Medications Current Outpatient Medications Medication Instructions albuterol 108 (90 Base) MCG/ACT inhaler 2 puffs, Inhalation, 4 times daily PRN aspirin 81 mg, Oral, Daily bumetanide (BUMEX) 2 mg, Oral, Daily clopidogrel (PLAVIX) 75 mg, Oral, Daily dapagliflozin (FARXIGA) 10 mg, Oral, Daily gabapentin (NEURONTIN) 600 mg, Oral, 3 times daily insulin detemir (LEVEMIR) 13 Units, Subcutaneous, Nightly losartan (COZAAR) 25 mg, Oral, Daily metoprolol succinate XL (TOPROL-XL) 50 mg, Oral, Daily, Do not crush or chew. mometasone-formoterol (Dulera 100) 100-5 MCG/ACT inhaler 2 puffs, Inhalation, 2 times daily, Rinse mouth with water after use to reduce aftertaste and incidence of candidiasis. Do not swallow. nitroglycerin (NITROSTAT) 0.4 mg, Sublingual, Every 5 min PRN Umeclidinium Kremlin (Incruse Ellipta) 62.5 MCG/ACT aerosol powder 1 Inhalation, Inhalation, Daily OBJECTIVE Blood pressure (!) 157/104, pulse 99, temperature 36.6 ??C (97.8 ??F), temperature source Oral, resp. rate 18, height 1.829 m (6'), weight 87 kg (191 lb 12.8 oz), SpO2 100%. Physical Exam Constitutional: General: He is not in acute distress. Appearance: He is ill-appearing. He is not toxic-appearing or diaphoretic. HENT: Head: Normocephalic and atraumatic. Nose: Nose normal. Mouth/Throat: Mouth: Mucous membranes are moist. Eyes: Extraocular Movements: Extraocular movements intact. Conjunctiva/sclera: Conjunctivae normal. Cardiovascular: Rate and Rhythm: Normal rate. Rhythm irregular. Heart sounds: No murmur heard. No friction rub. No gallop. Pulmonary: Effort: Pulmonary effort is normal. No respiratory distress. Breath sounds: Normal breath sounds. Abdominal: Palpations: Abdomen is soft. Musculoskeletal: Right lower leg: Edema present. Left lower leg: Edema present. Skin: General: Skin is warm and dry. Neurological: General: No focal deficit present. Mental Status: He is alert. Psychiatric: Mood and Affect: Mood normal. Behavior: Behavior normal. CBC: Lab Results Component Value Date WBC 3.68 (L) 01/30/2024 HGB 11.6 (L) 01/30/2024 HCT 37.8 (L) 01/30/2024 PLT 245 01/30/2024 MCV 84 01/30/2024 MCH 25.9 (L) 01/30/2024 MCHC 30.7 01/30/2024 RDW 19.9 (H) 01/30/2024 NRBC 0.0 01/30/2024 Differential: Lab Results Component Value Date WBC 3.68 (L) 01/30/2024 NEUTOPHILPCT 76 01/30/2024 LYMPHOPCT 17 01/30/2024 MONOPCT 4 01/30/2024 EOSPCT 2 01/30/2024 NEUTROABS 2.79 01/30/2024 Coagulation: No results found for: INR , PT , PTT , CLFGN Renal: Lab Results Component Value Date NA 133 (L) 01/30/2024 K 5.1 (H) 01/30/2024 CL 101 01/30/2024 CO2 26 01/30/2024 BUN 35 (H) 01/30/2024 CREATININE 2.37 (H) 01/30/2024 GLUCOSE 165 (H) 01/30/2024 CALCIUM 8.5 (L) 01/30/2024 Liver: Lab Results Component Value Date AST 93 (H) 01/30/2024 ALT 40 01/30/2024 BILITOT 1.8 (H) 01/30/2024 Glucose: Lab Results Component Value Date PGLU 164 (H) 01/30/2024 Lab Results Component Value Date HGBA1C 8.0 (H) 12/17/2023 Results / Imaging Most recent Echocardiogram (12/20/23): Interpretation Summary Left Ventricle: Based on the linear dimension and/or 2D volumes, the left ventricle is severely dilated in size. There is normal left ventricular myocardial thickness and mass. The left ventricular systolic function is moderately reduced. The LVEF as measured by biplane volume is 33%. The diastolic function is abnormal. There is grade II (moderate) diastolic dysfunction. The left ventricular filling pressure is elevated. Right Ventricle: The right ventricle is normal in size. The right ventricular systolic function is normal. Right ventricular systolic pressure is mildly elevated (35-50mmHg). The estimated right ventricular systolic pressure is 43 mmHg. Aortic Valve: There is mild aortic valve regurgitation. There is mild to moderate aortic stenosis. There is moderate (0.25-0.5) valvular aortic stenosis based upon the dimensionless index (LVOT / AV ratio). The peak gradient is 31 mmHg. The mean gradient is 18 mmHg. The estimated aortic valve area by the continuity equation is 1.6 cm2. Mitral Valve: There is moderate mitral regurgitation. Compared to the most recently available prior study, and allowing for differences in image quality and technique, AoV gradients have increased. ECG/Telemetry: 01/30/24: NSR, possible left atrial enlargement, left axis deviation, left ventricular hypertrophy with QRS widening, t-wave abnormality, consider lateral ischemia. CXR 01/29 Possible small left-sided pleural effusion. ASSESSMENT/PLAN Robert Hurley is a 58 y.o. male with significant PMHx of HFrEF (33%) reportedly due to ischemic cardiomyopathy, CAD s/p remote PCI, suspected COPD, CAMACHO cirrhosis, T2DM, CKD4, and prior L AKA who presented to [facility] on 01/30/2024 with worsening shortness of breath likely secondary to heart failure exacerbation. HFrEF (33%) presumed 2/2 ischemic cardiomyopathy with acute exacerbation Acute on chronic hypoxic respiratory failure -recent discharge from [facility] for similar presentation. Was discharged on Bumex 2mg daily with PRN extra dose for increased swelling. Reports taking Bumex every other day since discharge. Has had progressive SOA. -2mg IV Bumex given in ED -after inadequate UOP, gave additional 4mg IV Bumex at 12:30 -Rechecking labs this afternoon and if UOP is not >1L will follow with 5mg PO metolazone + 4mg IV Bumex. If UOP adequate, will give 4mg IV Bumex alone. -holding home beta stacy due to inconsistent medication history -obtaining ultrasound of RLE due to right limb swelling ISO L AKA. 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 Takes Dulera and albuterol outpatient. -started DuoNebs PRN -as patient is presenting with cough and respiratory symptoms will monitor this closely for signs of developing COPD exacerbation. No concern for PNA noted on CXR. T2DM -Holding home farxiga -BG 400s this afternoon -Started SSI and gave 5U now with plan to give additional units if recheck is not <200 CAMACHO cirrhosis, compensated -found on ultrasound 2020, no follow-ups since that time, no hx of HE/ascites/EV/SBP/HCC -LFTs elevated, likely due to congestion secondary to heart failure -will continue to monitor with CMP in the morning CKD4 -Cr appears to be stable when compared to values over the past year -avoiding nephrotoxins as able -holding home losartan -monitoring with BMP Diet: regular DVT ppx: heparin Code Status: Full Dispo: Admit to [facility]. Anastasia Parmar MD, PGY-1 Internal Medicine 01/30/2024 1:14 PM Cosigned by Darrin Griffin MD at 01/30/2024 7:56 PM EST Associated attestation - Darrin Griffin MD - 01/30/2024 7:56 PM EST I saw and evaluated the patient with the resident/fellow. I discussed the case with the resident/fellow and agree with the findings and plan as documented. * ED Provider Notes - Cash Maradiaga DO - 01/30/2024 8:34 AM EST Images from the original note were not included. - HPI Chief Complaint Patient presents with Shortness of Breath HPI Robert Hurley is a 58 y.o. male with past medical history of HFrEF (20-25%) reportedly due to ischemic cardiomyopathy, CAD, COPD, cirrhosis, T2DM, CKD, and prior L AKA who presents to the emergency department with complaints of shortness of breath. Patient reports last night prior to going to sleep he developed acute on chronic dyspnea. Patient states he wears 2 L of oxygen at baseline and has been compliant. On arrival to our ED, patient was not wearing his home O2. He denies any cough, chestpain, fever, chills, lower extremity edema, nausea, vomiting, diaphoresis, or other acute symptoms at this time. On review of his past medical records, patient has experienced recurrent dyspnea on exertion that has been worked up multiple times. He has a history of systolic heart failure and cardiology had plans to optimize him medically in hopes of placing an AICD. He was recently discharged with a LifeVest but patient reports it did not fit him well and he did not complete wearing it. Patient History Past 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: Diagnosis Date [...] OF STENT N/A Cath Stent Placement from [facility] CHOLECYSTECTOMY N/A Cholecystectomy from [facility] Family History Problem Relation Name Age of [...] drug use Allergies: Allergies Allergen Reactions Penicillins Shortness of breath, Nausea and Swelling Rash as a child. Has received ceftriaxone in past without reaction Physical Exam ED Triage Vitals [01/30/24 0841] Temp Heart Rate Resp BP 36.5 ??C (97.7 ??F) 85 26 (!) 149/108 SpO2 Temp src Heart Rate Source Patient Position 100 % -- Monitor -- BP Location FiO2 (%) -- -- Physical Exam Vitals and nursing note reviewed. Constitutional: General: He is not in acute distress. Appearance: He is well-developed. HENT: Head: Normocephalic and atraumatic. Eyes: Conjunctiva/sclera: Conjunctivae normal. Cardiovascular: Rate and Rhythm: Normal rate and regular rhythm. Heart sounds: No murmur heard. Pulmonary: Effort: Pulmonary effort is normal. No respiratory distress. Breath sounds: Decreased breath sounds present. Abdominal: Palpations: Abdomen is soft. Tenderness: There is no abdominal tenderness. Musculoskeletal: General: No swelling. Cervical back: Neck supple. Comments: Left AKA. Chronic venous stasis changes to the right lower extremity without significant edema. Skin: General: Skin is warm and dry. Capillary Refill: Capillary refill takes less than 2 seconds. Neurological: Mental Status: He is alert. Psychiatric: Mood and Affect: Mood normal. Mariela Coma Scale Score: 15 ED Course & MDM - Assessment: 58 y.o. male presents to ED with complaint of shortness of breath. It should be noted that the chronic conditions includes HFrEF (20-25%) reportedly due to ischemic cardiomyopathy, CAD, COPD, cirrhosis, T2DM, CKD, and prior L AKA , which currently is not at goal therapy. This complicates the clinical picture because it Comorbidities: may be exacerbating symptoms, increases the amount and complexity of data to be reviewed, complicates the clinical workup, and increases the risk for morbidity Differential Diagnosis: Differential diagnosis includes but is not limited to COVID-19, asthma, pulmonary embolism, COPD exacerbation, pleural effusion, noncardiogenic edema, pneumonia, CHF exacerbation, acute coronary syndrome, arrhythmia, valvular dysfunction, anemia, and toxins. In order to fully explore the differential diagnosis the following treatments and tests were ordered: ED Medication Administration from 01/30/2024 0834 to 01/30/2024 1144 Date/Time Order Dose Route Action 01/30/2024 1023 EST bumetanide (Bumex) injection 2 mg 2 mg Intravenous Given 01/30/2024 1045 EST calcium gluconate 10 % injection 2 g -- Intravenous Canceled Entry 01/30/2024 1045 EST dextrose 10 % (D10W) bolus 250 mL -- Intravenous Canceled Entry 01/30/2024 1045 EST insulin regular (HumuLIN R,NovoLIN R) 100 UNIT/ML injection 5 Units -- Intravenous Canceled Entry All Other Orders Ordered Status Ordering Provider 01/30/24 1059 Troponin T, High Sensitivity, 2 Hour, Plasma PROCEDURE ONCE Final result CASH MARADIAGA 01/30/24 1144 Vital Signs Every 4 hours Placed in And Linked Group Acknowledged PARMAR, ANASTASIA E 01/30/24 1144 Pulse Oximetry Every 4 hours Placed in And Linked Group Acknowledged PARMAR, ANASTASIA E 01/30/24 1144 Okay To Give Nicotine Replacement Until discontinued Acknowledged PARMAR, ANASTASIA E 01/30/24 1144 Adult diet Diet texture: Regular; Sodium restriction: 2,000 mg Na; Dietary fluid restriction / 24h: 1500 ml Fluid Diet effective now Acknowledged PARMAR, ANASTASIA E 01/30/24 1144 Admit to inpatient Once Completed PARAMR, ANASTASIA E 01/30/24 1144 Mobility Orders Until discontinued Acknowledged PARMAR, ANASTASIA E 01/30/24 1144 Notify physician (specify parameters) Until discontinued Acknowledged PARMAR, ANASTASIA E 01/30/24 1144 Insert peripheral IV Once Placed in And Linked Group Completed PARMAR, ANASTASIA E 01/30/24 1144 Saline lock IV Once Placed in And Linked Group Completed PARMAR, ANASTASIA E 01/30/24 1144 Multi Drug Resistance Test Once In process PARMAR, ANASTASIA E 01/30/24 1144 Full code Continuous Acknowledged PARMAR, ANASTASIA E 01/30/24 1103 Consult to Cardiology Once Specialty: Cardiology Provider: (Not yet assigned) Acknowledged CASH MARADIAGA 01/30/24 1052 Once Specialty: Cardiology Provider: (Not yet assigned) Canceled CASH MARADIAGA C 01/30/24 1040 Every 1 hour Comments: Obtain blood glucose every hour following insulin + dextrose IV treatment for hyperkalemia. Order ID Start Status Ordering Provider [id number] 01/30/24 1039 Canceled CASH MARADIAGA [id number] 01/30/24 1100 Canceled LILLIAM MARADIAGAR Abigail [id number] 01/30/24 1200 Canceled CASH MARADIAGA Canceled LILLIAM MARADIAGAR C 01/30/24 1040 Until discontinued Canceled REINACHAYITO CASH C 01/30/24 1040 Until discontinued Comments: If patient is able to take PO (does not have NPO order) give 15 -20 gm of carbohydrate plus protein snack. Options include: 3 kahlil crackers (15 gm); 2 pkg. saltine crackers (16 gm); 4 oz cup applesauce (17 gm); ?? oz peanut butter,1 container (5 gm); 1 cup regular pudding (21 gm); or 1 cup sugar free pudding (10 gm). Recheck POC BG 30 minutes after administration and follow hypoglycemia prevention protocol. Canceled LILLIAM MARADIAGAR C 01/30/24 1040 Until discontinued Comments: If patient is able to take PO (does not have NPO order) give 15gm of fast acting carbohydrates. Options include 4 oz of juice (apple juice preferred in renal patients), 4 oz non-diet soda or 8 oz milk. Recheck POC BG 15 minutes after administration and retreat if necessary until POC BG is> 100. Canceled LILLIAM MARADIAGAR C 01/30/24 1040 Until discontinued Comments: After patient receives 25gm Dextrose and patient alert and can take PO (does not have NPOorder) give 30gm fast acting carbohydrates. Options include 8 oz of juice (apple juice preferred inrenal patients), 8 oz non-diet soda or 16 oz milk. Recheck POC BG 15 minutes after administration and repeat if necessary until POC BG >100. Canceled LILLIAM MARADIAGAR C 01/30/24 1040 As needed Comments: Recheck POC BG 15 minutes after any hypoglycemia treatment. Continue until POC BG is greater than 100 mg/dL. Canceled LILLIAM MARADIAGAR C 01/30/24 1028 STAT Canceled LILLIAM MARADIAGAR C 01/30/24 1023 Potassium STAT Final result CARMENCITA SLAUGHTER 01/30/24 0858 Troponin now and 120 min STAT Final result CASH MARADIAGA C 01/30/24 0958 Extra Tubes Once Final result CARMENCITA SLAUGHTER 01/30/24 0958 Light Green Top PROCEDURE ONCE Final result CARMENCITA SLAUGHTER 01/30/24 0947 Potassium STAT Final result CASH MARADIAGA 01/30/24 0858 CBC w/diff STAT Final result CASH MARADIAGA 01/30/24 0858 CMP STAT Final result CASH MARADIAGA 01/30/24 0858 BNP STAT Final result CASH MARADIAGA 01/30/24 0858 SARS-CoV-2, Flu A, Flu B, and RSV - Rapid STAT Final result CASH MARADIAGA 01/30/24 0858 EKG now - STAT (adult) Once Preliminary result CASH MARADIAGA 01/30/24 0858 XR Chest 1 View One time imaging Final result CASH MARADIAGA 01/30/24 0843 POCT glucose meter PROCEDURE ONCE Final result POCT, GENERIC PROVIDER ED Course as of 01/30/24 142 Sun Jan 30, 2024 0938 I independently interpreted CXR which shows some evidence of left sided fluid. No obvious focal consolidation, pneumothorax or other acute cardiopulmonary process. Please see final radiology read for details. [TK] 0951 Potassium(!!): 8.2 I was notified of a critical result for hyperkalemia. We will obtain a repeat potassium to determine if result was hemolyzed. [TK] 0957 N-Terminal, PROBNP, Plasma(!): >70,000 Elevated from prior [TK] 1058 Paged cardiology for admisison, they agree to evaluate the patient in the ED. [TK] 1118 Potassium(!): 5.1 [TK] ED Course User Index [TK] Cash Maradiaga DO Clinical Impressions as of 01/30/241428 Acute on chronic systolic congestive heart failure (CMS/HCC) Social Determinates of Health Risks (including Economic Stability, Education and level of understanding, Healthcare access and quality and concerning social factors): Poor health literacy Ultimately, this patient was Was admitted (Admission) The encounter diagnosis was Acute on chronic systolic congestive heart failure (CMS/HCC).. Patient believed to require admission for the listed diagnoses. The Cardiology service was consulted for admission and was agreeable to admit to Acute Floor (Med/Surg). ED Prescriptions None Disposition Admit Admitting/Attending Physician: DARRIN GRIFFIN [[id number]] Provider Care Team: CAR FLOOR/OBSERVATION [33] Are they the primary team?: Yes [1] - Cash Maradiaga DO Resident 01/30/241428 Cosigned by Carmencita Slaughter MD at 01/30/2024 3:36 PM EST Associated attestation - Carmencita Slaughter MD - 01/30/2024 3:36 PM EST I saw and evaluated the patient with the resident/fellow. I discussed the case with the resident/fellow and agree with the findings and plan as documented. * ED Triage Notes - Vamsi Denney - 01/30/2024 8:34 AM EST EMS called for SOA, on arrival patient off his baseline 2L NC. NAD on arrival. Hx- COPD documented in this encounter Plan of Treatment Upcoming Encounters Date Type Department Care Team (Late st Contact Info) Description 03/07/2024 1:40 PM EST Office Visit [facility] [place] [facility] [address], [address] [place] [address] Naeem Blunt MD [address] [place] [id number] Scheduled Orders Name Type Priority Associated Diagnoses Orde r Schedule Basic metabolic panel Lab Routine Acute on chronic systolic congestive heart failure ([facility]/HCC) Expected: 02/12/2024 (Approximate), Expires: 08/04/2025 Scheduled Referrals Name Type Priority Associated Diagnoses Order Schedule Discharge Ambulatory referral to NON Home Health Outpatient Referral Routine Acute on chronic systolic congestive heart failure (CMS/HCC) Expected: 02/03/2024 (Approximate), Expires: 08/02/2025 Discharge Ambulatory referral - High Risk Outpatient Referral Routine Acute on chronic systolic congestive heart failure (CMS/HCC) Expected: 02/11/2024, Expires: 08/03/2025 documented as of this encounter Procedures Procedure Name Priority Date/Time Associated Diagnosis Comments POCT GLUCOSE METER UNSOLICITED RESULTS Routine 02/05/2024 [...] NON-INVASIVE VENTILATION Routine 02/03/2024 8:00 AM EST EXTRA TUBE LAVENDER TOP Routine 02/03/2024 2:26 AM EST EXTRA TUBES Routine 02/03/2024 2:26 AM EST ASPARTATE AMINOTRANSFERASE, PLASMA Add-On 02/03/2024 2:26 AM EST ALANINE AMINOTRANSFERASE, PLASMA Add-On 02/03/2024 2:26 AM EST ALKALINE PHOSPHATASE, PLASMA Add-On 02/03/2024 2:26 AM EST TOTAL BILIRUBIN, PLASMA Add-On 02/03/2024 2:26 AM EST BASIC METABOLIC PANEL, [...] 4:49 PM EST MAGNESIUM, PLASMA Add-On 02/01/2024 12: 24 PM EST BASIC METABOLIC PANEL, PLASMA Routine [...] UNSOLICITED RESULTS Routine 01/30/2024 7:52 PM EST MAGNESIUM, PLASMA Routine 01/30/2024 7:5 1 PM EST COMPREHENSIVE METABOLIC PANEL, PLASMA Routine 01/30/2024 7:51 PM EST POCT GLUCOSE METER UNSOLICITED RESULTS Routine 01/30/2024 5:42 PM EST TROPONIN T, HIGH SENSITIVITY, 2 HOUR, PLASMA Timed 01/30/2024 1:20 PM EST POCT GLUCOSE METER UNSOLICITED RESULTS Routine 01/30/2024 1:14 PM EST MULTI DRUG RESISTANCE TEST Routine 01/30/2024 12:32 PM EST TROPONIN T, HIGH SENSITIVITY, 0 HOUR, PLASMA, REFLEX TO 2 HOUR STAT 01/30/2024 10:32 AM EST POTASSIUM, PLASMA STAT 01/30/2024 10: 32 AM EST EXTRA TUBE LIGHT GREEN TOP Routine 01/30/2024 9:55 AM EST EXTRA TUBES Routine 01/30/2024 9:55 AM EST POTASSIUM, PLASMA STAT 01/30/2024 9:5 5 AM EST XR CHEST 1 VIEW STAT 01/30/2024 9:20 AM EST SARS-COV-2, FLU A, FLU B, AND RSV - RAPID STAT 01/30/2024 9:13 AM EST N-TERMINAL PROBNP, PLASMA STAT 01/30/2024 9:13 AM EST CBC WITH AUTO DIFFERENTIAL STAT 01/30/2024 9:13 AM EST COMPREHENSIVE METABOLIC PANEL, PLASMA STAT 01/30/2024 9:13 AM EST ECG ADULT STAT 01/30/2024 9:05 AM EST POCT GLUCOSE METER UNSOLICITED RESULTS Routine 01/30/2024 8:43 AM EST documented in this encounter Results * (ABNORMAL) POCT glucose meter (02/05/2024 8:27 AM EST) [facility] POCT Glucose 152(H) 74 - 99 mg/dL 02/05/2024 8:28 AM EST [facility] Comment:Accuracy of a glucos e result [...] for testing. Comment 02/05/2024 8:28 AM EST [facility] Shot Blaster ID Yumi Lux 8:28 AM EST [facility] Device ID [id number] 02/05/2024 8:28 AM EST [facility] Specimen Type POC Capillary 02/05/2024 8:28 AM EST [facility] Blood Capillary blood specimen / Unknown 02/05/2024 8:27 AM EST 02/05/2024 8:28 AM EST Dustin Barakat MD LAB POINT OF CARE TE ST DOCKED DEVICE UNSOLICITED RESULTS Final Result [facility] [address] [place] [id number] * (ABNORMAL) CBC W/O Differential (02/05/2024 3:55 AM EST) [facility] WBC Count 4.07 3.70 - 10.30 10*3/uL LAB HEMATOLOGY METHOD 02/05/2024 4:35 AM EST [facility] RBC Count 4.16(L) 4.60 - 6.10 10*6/uL LAB HEMATOLOGY METHOD 02/05/2024 4:35 AM EST [facility] HGB 11.0(L) 13.7 - 17.5 g/dL LAB HEMATOLOGY METHOD 02/05/2024 4:35 AM EST [facility] HCT 34.8(L) 40.0 - 51.0 % LAB HEMATOLOGY METHOD 02/05/2024 4:35 AM EST [facility] Platelet Count 200 155 - 369 10*3/uL LAB HEMATOLOGY METHOD 02/05/2024 4:35 AM EST [facility] MCV 84 79 - 98 fL LAB HEMATOLOGY METHOD 02/05/2024 4:35 AM EST [facility] MCH 26.4 26.0 - 32.0 pg LAB HEMATOLOGY METHOD 02/05/2024 4:35 AM EST [facility] MCHC 31.6 30.7 - 35.5 g/dL LAB HEMATOLOGY METHOD 02/05/2024 4:35 AM EST [facility] RDW 19.7(H) 11.5 - 14.5 % LAB HEMATOLOGY METHOD 02/05/2024 4:35 AM EST [facility] MPV 10.6 8.8 - 12.5 fL LAB HEMATOLOGY METHOD 02/05/2024 4:35 AM EST [facility] nRBC 0.0 <=0.0 per 100 WBCs LAB HEMATOLOGY METHOD 02/05/2024 4:35 AM EST [facility] Blood Venous blood specimen / Unknown Venipuncture / Unknown 02/05/2024 3:55 AM EST 02/05/2024 4:27 AM EST Dustin Barakat MD LAB BLOOD ORDERABLES Final Re sult [facility] [address] [place] [address] * (ABNORMAL) Magnesium (02/05/2024 3:55 AM EST) Magnesium, Plasma 2.5(H) 1.9 - 2.4 mg/dL 02/05/2024 4:52 AM EST [facility] Blood Venous blood specimen / Unknown Venipuncture / Unknown 02/05/2024 3:55 AM EST 02/05/2024 4:23 AM EST us Dustin Barakat MD LAB BLOOD ORDERABLES Final Re sult [facility] [address] [place] [address] * (ABNORMAL) Basic metabolic panel (02/05/2024 3:55 AM EST) Glucose, Plasma 187(H) 74 - 99 mg/dL 02/05/2024 4:52 AM EST [facility] BUN, Plasma 80(H) 7 - 21 mg/dL 02/05/2024 4:52 AM EST [facility] Creatinine, Plasma 3.12(H) 0.70 - 1.20 mg/dL 02/05/2024 4:52 AM EST [facility] BUN/Creatinine Ratio 26 02/05/2024 4:52 AM EST [facility] Sodium, Plasma 138 136 - 145 mmol/L 02/05/2024 4:52 AM EST [facility] Potassium, Plasma 4.7 3.6 - 4.9 mmol/L 02/05/2024 4:52 AM EST [facility] Chloride, Plasma 99 97 - 107 mmol/L 02/05/2024 4:52 AM EST [facility] CO2, Plasma 27 22 - 29 mmol/L 02/05/2024 4:52 AM EST [facility] Anion Gap 12 6 - 16 mmol/L 02/05/2024 4:52 AM EST [facility] Total Calcium, Plasma 8.9 8.9 - 10.2 mg/dL 02/05/2024 4:52 AM EST [facility] eGFRcr 22.5 mL/min/1.7 3m*2 02/05/2024 4:52 AM EST [facility] Comment:Reported eGFRcr in m L/min/1.73m2 is based the CKD-EPI 2020 equation that does not use a race coefficient. Blood Venous blood specimen / Unknown Venipuncture / Unknown 02/05/2024 3:55 AM EST 02/05/2024 4:23 AM EST Dustin Barakat MD LAB BLOOD ORDERABLES Final Re sult [facility] [address] [place] [address] * (ABNORMAL) POCT glucose meter (02/04/2024 8:26 PM EST) [facility] POCT Glucose 194(H) 74 - 99 mg/dL 02/04/2024 8:28 PM EST [facility] Comment:Accuracy of a glucos e result obtained from a capillary whole blood specimen relies upon adequate, non-compromised capillary blood flow. If the capillary glucose result is not consistent with the patient's clinical signs and symptoms, glucose testing should be repeated with either an arterial or venous sample on the glucometer or sent to the main labortory for testing. Comment 02/04/2024 8:28 PM EST [facility] Shot Blaster ID KalaCharito roger 8:28 PM EST [facility] Device ID [id number] 02/04/2024 8:28 PM EST [facility] Specimen Type POC Capillary 02/04/2024 8:28 PM EST [facility] Blood Capillary blood specimen / Unknown 02/04/2024 8:26 PM EST 02/04/2024 8:28 PM EST Dustin Barakat MD LAB POINT OF CARE TE ST DOCKED DEVICE UNSOLICITED RESULTS Final Result Performing Organization Address [facility] Co de Phone Number [facility] [address] [place] [address] * (ABNORMAL) POCT glucose meter (02/04/2024 5:37 PM EST) [facility] POCT Glucose 135(H) 74 - 99 mg/dL 02/04/2024 5:39 PM EST [facility] Comment:Accuracy of a glucos e result obtained from a capillary whole blood specimen relies upon adequate, non-compromised capillary blood flow. If the capillary glucose result is not consistent with the patient's clinical signs and symptoms, glucose testing should be repeated with either an arterial or venous sample on the glucometer or sent to the main labortory for testing. Comment 02/04/2024 5:39 PM EST [facility] Shot Blaster ID Alma Faulkner 5:39 PM EST [facility] Device ID [id number] 02/04/2024 5:39 PM EST [facility] Specimen Type POC Capillary 02/04/2024 5:39 PM EST [facility] Blood Capillary blood specimen / Unknown 02/04/2024 5:37 PM EST 02/04/2024 5:39 PM EST Dustin Barakat MD LAB POINT OF CARE TE ST DOCKED DEVICE UNSOLICITED RESULTS Final Result Performing Organization Address City/[facility] Co de Phone Number [facility] [address] [place] [address] * (ABNORMAL) POCT glucose meter (02/04/2024 1:07 PM EST) POCT Glucose 256(H) 74 - 99 mg/dL 02/04/2024 1:08 PM EST [facility] Comment:Accuracy of a glucos e result obtained from a capillary whole blood specimen relies upon adequate, non-compromised capillary blood flow. If the capillary glucose result is not consistent with the patient's clinical signs and symptoms, glucose testing should be repeated with either an arterial or venous sample on the glucometer or sent to the main labortory for testing. Comment 02/04/2024 1:08 PM EST [facility] Shot Blaster ID Alma Faulkner [id number] 1:08 PM EST [facility] Device ID [id number] 02/04/2024 1:08 PM EST [facility] Specimen Type POC Capillary 02/04/2024 1:08 PM EST [facility] Blood Capillary blood specimen / Unknown 02/04/2024 1:07 PM EST 02/04/2024 1:08 PM EST Dustin Barakat MD LAB POINT OF CARE TE ST DOCKED DEVICE UNSOLICITED RESULTS Final Result Performing Organization Address City/[facility] Co de Phone Number [facility] [address] [place] [address] * (ABNORMAL) POCT glucose meter (02/04/2024 8:58 AM EST) POCT Glucose 224(H) 74 - 99 mg/dL 02/04/2024 9:00 AM EST [facility] Comment:Accuracy of a glucos e result obtained from a capillary whole blood specimen relies upon adequate, non-compromised capillary blood flow. If the capillary glucose result is not consistent with the patient's clinical signs and symptoms, glucose testing should be repeated with either an arterial or venous sample on the glucometer or sent to the main labortory for testing. Comment 02/04/2024 9:00 AM EST [facility] Shot Blaster ID Alma Faulkner 024 9:00 AM EST [facility] Device ID [id number] 02/04/2024 9:00 AM EST [facility] Specimen Type POC Capillary 02/04/2024 9:00 AM EST [facility] Blood Capillary blood specimen / Unknown 02/04/2024 8:58 AM EST 02/04/2024 9:00 AM EST us Dustin Barakat MD LAB POINT OF CARE TE ST DOCKED DEVICE UNSOLICITED RESULTS Final Result Performing Organization Address [facility] Co de Phone Number [facility] [address] [place] [address] * Lavender Top (02/04/2024 3:47 AM EST) Extra Hold for add-ons 02/04/2024 7:01 AM EST [facility] Comment:Auto resulted. Blood Venous blood specimen / Unknown 02/04/2024 3:47 AM EST 02/04/2024 4:39 AM EST us Dustin Barakat MD LAB BLOOD ORDERABLES Final Re sult [facility] [address] [place] [address] * (ABNORMAL) Basic metabolic panel (02/04/2024 3:47 AM EST) Glucose, Plasma 269(H) 74 - 99 mg/dL 02/04/2024 4:37 AM EST [facility] BUN, Plasma 77(H) 7 - 21 mg/dL 02/04/2024 4:37 AM EST [facility] Creatinine, Plasma 3.04(H) 0.70 - 1.20 mg/dL 02/04/2024 4:37 AM EST [facility] BUN/Creatinine Ratio 25 02/04/2024 4:37 AM EST [facility] Sodium, Plasma 136 136 - 145 mmol/L 02/04/2024 4:37 AM EST [facility] Potassium, Plasma 4.3 3.6 - 4.9 mmol/L 02/04/2024 4:37 AM EST [facility] Chloride, Plasma 93(L) 97 - 107 mmol/L 02/04/2024 4:37 AM EST [facility] CO2, Plasma 29 22 - 29 mmol/L 02/04/2024 4:37 AM EST [facility] Anion Gap 14 6 - 16 mmol/L 02/04/2024 4:37 AM EST [facility] Total Calcium, Plasma 8.7(L) 8.9 - 10.2 mg/dL 02/04/2024 4:37 AM EST [facility] eGFRcr 23.3 mL/min/1.7 3m*2 02/04/2024 4:37 AM EST [facility] Comment:Reported eGFRcr in m L/min/1.73m2 is based the CKD-EPI 2020 equation that does not use a race coefficient. Blood Venous blood specimen / Unknown Venipuncture / Unknown 02/04/2024 3:47 AM EST 02/04/2024 4:06 AM EST us Dustin Barakat MD LAB BLOOD ORDERABLES Final Re sult [facility] [address] [place] [address] * (ABNORMAL) POCT glucose meter (02/03/2024 8:58 PM EST) POCT Glucose 135(H) 74 - 99 mg/dL 02/03/2024 9:05 PM [facility] Comment:Accuracy of a glucos e result obtained from a capillary whole blood specimen relies upon adequate, non-compromised capillary blood flow. If the capillary glucose result is not consistent with the patient's clinical signs and symptoms, glucose testing should be repeated with either an arterial or venous sample on the glucometer or sent to the main labortory for testing. Comment 02/03/2024 9:05 PM EST [facility] Shot Blaster ID Dedrick Wilcox 02/03/2024 9:05 PM EST [facility] Device ID [id number] 02/03/2024 9:05 PM EST [facility] Specimen Type POC Capillary 02/03/2024 9:05 PM EST [facility] Blood Capillary blood specimen / Unknown 02/03/2024 8:58 PM EST 02/03/2024 9:05 PM EST Dustin Barakat MD LAB POINT OF CARE TE ST DOCKED DEVICE UNSOLICITED RESULTS Final Result Performing Organization Address City/[facility] Co de Phone Number [facility] [address] [place] [address] * (ABNORMAL) POCT glucose meter (02/03/2024 5:59 PM EST) POCT Glucose 216(H) 74 - 99 mg/dL 02/03/2024 6:00 PM EST [facility] Comment:Accuracy of a glucos e result obtained from a capillary whole blood specimen relies upon adequate, non-compromised capillary blood flow. If the capillary glucose result is not consistent with the patient's clinical signs and symptoms, glucose testing should be repeated with either an arterial or venous sample on the glucometer or sent to the main labortory for testing. Comment 02/03/2024 6:00 PM EST [facility] Shot Blaster ID Shakira Trejo 6:00 PM EST [facility] Device ID [id number] 02/03/2024 6:00 PM EST [facility] Specimen Type POC Capillary 02/03/2024 6:00 PM EST [facility] Blood Capillary blood specimen / Unknown 02/03/2024 5:59 PM EST 02/03/2024 6:00 PM EST Dustin Barakat MD LAB POINT OF CARE TE ST DOCKED DEVICE UNSOLICITED RESULTS Final Result Performing Organization Address City/[facility]/ZIP Co de Phone Number [facility] [address] [place] [address] * (ABNORMAL) POCT glucose meter (02/03/2024 12:56 PM EST) [facility] POCT Glucose 241(H) 74 - 99 mg/dL 02/03/2024 12:58 PM EST [facility] Comment:Accuracy of a glucos e result obtained from a capillary whole blood specimen relies upon adequate, non-compromised capillary blood flow. If the capillary glucose result is not consistent with the patient's clinical signs and symptoms, glucose testing should be repeated with either an arterial or venous sample on the glucometer or sent to the main labortory for testing. Comment 02/03/2024 12:58 PM EST [facility] Shot Blaster ID Shakira Trejo 12:58 PM EST [facility] Device ID [id number] 02/03/2024 12:58 PM EST [facility] Specimen Type POC Capillary 02/03/2024 12:58 PM EST [facility] Blood Capillary blood specimen / Unknown 02/03/2024 12:56 PM EST 02/03/2024 12:58 PM EST Darrin Griffin MD LAB POINT OF CARE TE ST DOCKED DEVICE UNSOLICITED RESULTS Final Result Performing Organization Address City/State/[facility] Co de Phone Number [facility] [address] [place] [address] * (ABNORMAL) POCT glucose meter (02/03/2024 8:55 AM EST) [facility] POCT Glucose 177(H) 74 - 99 mg/dL 02/03/2024 8:57 AM EST [facility] Comment:Accuracy of a glucos e result obtained from a capillary whole blood specimen relies upon adequate, non-compromised capillary blood flow. If the capillary glucose result is not consistent with the patient's clinical signs and symptoms, glucose testing should be repeated with either an arterial or venous sample on the glucometer or sent to the main labortory for testing. Comment 02/03/2024 8:57 AM EST [facility] Shot Blaster ID Charito Griffin 02/03/2024 8:57 AM EST [facility] Device ID [id number] 02/03/2024 8:57 AM EST [facility] Specimen Type POC Capillary 02/03/2024 8:57 AM EST [facility] Blood Capillary blood specimen / Unknown 02/03/2024 8:55 AM EST 02/03/2024 8:57 AM EST Darrin Griffin MD LAB POINT OF CARE TE ST DOCKED DEVICE UNSOLICITED RESULTS Final Result Performing Organization Address City/[facility]/ZIP Co de Phone Number [facility] [address] [place] [address] * Bilirubin, total (02/03/2024 2:26 AM EST) Total Bilirubin, Plasma 0.8 0.2 - 1.1 mg/dL 02/03/2024 9:[address] [facility] Blood Venous blood specimen / Unknown Venipuncture / Unknown 02/03/2024 2:26 AM EST 02/03/2024 2:37 AM EST Dustin Barakat MD LAB BLOOD ORDERABLES Final Re sult Performing Organization Address City/[facility] Co de Phone Number [facility] [address] [place] [address] * Alanine Aminotransferase, Plasma (02/03/2024 2:26 AM EST) ALT, Plasma 23 10 - 50 U/L 02/03/2024 9:[address] [facility] Blood Venous blood specimen / Unknown Venipuncture / Unknown 02/03/2024 2:26 AM EST 02/03/2024 2:37 AM EST Dustin Barakat MD LAB BLOOD ORDERABLES Final Re sult Performing Organization Address City/[facility] Co de Phone Number [facility] [address] [place] [address] * (ABNORMAL) Alkaline Phosphatase (02/03/2024 2:26 AM EST) Alkaline Phosphatase, Plasma 317(H) 40 - 115 U/L 02/03/2024 9:[address] [facility] Blood Venous blood specimen / Unknown Venipuncture / Unknown 02/03/2024 2:26 AM EST 02/03/2024 2:37 AM EST us Dustin Barakat MD LAB BLOOD ORDERABLES Final Re sult [facility] [address] [place] [address] * Aspartate Aminotransferase, Plasma (02/03/2024 2:26 AM EST) AST, Plasma 35 10 - 50 U/L 02/03/2024 9:01 AM EST [facility] Blood Venous blood specimen / Unknown Venipuncture / Unknown 02/03/2024 2:26 AM EST 02/03/2024 2:37 AM EST us Dustin Barakat MD LAB BLOOD ORDERABLES Final Re sult Performing Organization Address [facility] Co de Phone Number [facility] [address] [place] [address] * Lavender Top (02/03/2024 2:26 AM EST) Extra Hold for add-ons 02/03/2024 5:01 AM EST [facility] Comment:Auto resulted. Blood Venous blood specimen / Unknown 02/03/2024 2:26 AM EST 02/03/2024 2:35 AM EST us Darrin Griffin MD LAB BLOOD ORDERABLES Final Res ult Performing Organization Address City/[facility]/ZIP Co de Phone Number [facility] [address] [place] [address] * (ABNORMAL) Basic metabolic panel (02/03/2024 2:26 AM EST) Glucose, Plasma 309(H) 74 - 99 mg/dL 02/03/2024 3:04 AM EST [facility] BUN, Plasma 72(H) 7 - 21 mg/dL 02/03/2024 3:04 AM EST [facility] Creatinine, Plasma 3.14(H) 0.70 - 1.20 mg/dL 02/03/2024 3:04 AM EST [facility] BUN/Creatinine Ratio 23 02/03/2024 3:04 AM EST [facility] Sodium, Plasma 137 136 - 145 mmol/L 02/03/2024 3:04 AM EST [facility] Potassium, Plasma 4.5 3.6 - 4.9 mmol/L 02/03/2024 3:04 AM EST [facility] Chloride, Plasma 94(L) 97 - 107 mmol/L 02/03/2024 3:04 AM EST [facility] CO2, Plasma 30(H) 22 - 29 mmol/L 02/03/2024 3:04 AM EST [facility] Anion Gap 13 6 - 16 mmol/L 02/03/2024 3:04 AM EST [facility] Total Calcium, Plasma 8.7(L) 8.9 - 10.2 mg/dL 02/03/2024 3:04 AM EST [facility] eGFRcr 22.4 mL/min/1.7 3m*2 02/03/2024 3:04 AM EST [facility] Comment:Reported eGFRcr in m L/min/1.73m2 is based the CKD-EPI 2020 equation that does not use a race coefficient. Blood Venous blood specimen / Unknown Venipuncture / Unknown 02/03/2024 2:26 AM EST 02/03/2024 2:37 AM EST us Darrin Griffin MD LAB BLOOD ORDERABLES Final Res ult [facility] [address] [place] [address] * (ABNORMAL) POCT glucose meter (02/02/2024 8:35 PM EST) POCT Glucose 152(H) 74 - 99 mg/dL 02/02/2024 8:39 PM EST [facility] Comment:Accuracy of a glucos e result obtained from a capillary whole blood specimen relies upon adequate, non-compromised capillary blood flow. If the capillary glucose result is not consistent with the patient's clinical signs and symptoms, glucose testing should be repeated with either an arterial or venous sample on the glucometer or sent to the main labortory for testing. Comment 02/02/2024 8:39 PM EST [facility] Shot Blaster ID Dedrick Wilcox 02/02/2024 8:39 PM EST [facility] Device ID [id number] 02/02/2024 8:39 PM EST [facility] Specimen Type POC Capillary 02/02/2024 8:39 PM EST [facility] Blood Capillary blood specimen / Unknown 02/02/2024 8:35 PM EST 02/02/2024 8:39 PM EST us Darrin Griffin MD LAB POINT OF CARE TE ST DOCKED DEVICE UNSOLICITED RESULTS Final Result Performing Organization Address City/[facility] Co de Phone Number [facility] [address] [place] [address] * (ABNORMAL) POCT glucose meter (02/02/2024 5:39 PM EST) POCT Glucose 204(H) 74 - 99 mg/dL 02/02/2024 5:40 PM EST [facility] Comment:Accuracy of a glucos e result obtained from a capillary whole blood specimen relies upon adequate, non-compromised capillary blood flow. If the capillary glucose result is not consistent with the patient's clinical signs and symptoms, glucose testing should be repeated with either an arterial or venous sample on the glucometer or sent to the main labortory for testing. Comment 02/02/2024 5:40 PM EST [facility] Shot Blaster ID Divya Malloy 02/02/2024 5:40 PM EST [facility] Device ID [id number] 02/02/2024 5:40 PM EST [facility] Specimen Type POC Capillary 02/02/2024 5:40 PM EST [facility] Blood Capillary blood specimen / Unknown 02/02/2024 5:39 PM EST 02/02/2024 5:40 PM EST us Darrin Griffin MD LAB POINT OF CARE TE ST DOCKED DEVICE UNSOLICITED RESULTS Final Result Performing Organization Address City/[facility] Co de Phone Number [facility] [address] [place] [address] * (ABNORMAL) POCT glucose meter (02/02/2024 12:10 PM EST) POCT Glucose 249(H) 74 - 99 mg/dL 02/02/2024 12:12 PM EST [facility] Comment:Accuracy of a glucos e result obtained from a capillary whole blood specimen relies upon adequate, non-compromised capillary blood flow. If the capillary glucose result is not consistent with the patient's clinical signs and symptoms, glucose testing should be repeated with either an arterial or venous sample on the glucometer or sent to the main labortory for testing. Comment 02/02/2024 12:12 PM EST [facility] Shot Blaster ID Divya Malloy 02/02/2024 12:12 PM EST [facility] Device ID [id number] 02/02/2024 12:12 PM EST [facility] Specimen Type POC Capillary 02/02/2024 12:12 PM EST [facility] Blood Capillary blood specimen / Unknown 02/02/2024 12:10 PM EST 02/02/2024 12:12 PM EST Darrin Griffin MD LAB POINT OF CARE TE ST DOCKED DEVICE UNSOLICITED RESULTS Final Result Performing Organization Address City/State/[facility] Co de Phone Number [facility] [address] [place] [address] * (ABNORMAL) POCT glucose meter (02/02/2024 8:33 AM EST) [facility] POCT Glucose 153(H) 74 - 99 mg/dL 02/02/2024 8:37 AM EST [facility] Comment:Accuracy of a glucos e result obtained from a capillary whole blood specimen relies upon adequate, non-compromised capillary blood flow. If the capillary glucose result is not consistent with the patient's clinical signs and symptoms, glucose testing should be repeated with either an arterial or venous sample on the glucometer or sent to the main labortory for testing. Comment 02/02/2024 8:37 AM EST [facility] Shot Blaster ID Holly Marcial 02/02/20 8:37 AM EST [facility] Device ID [id number] 02/02/2024 8:37 AM EST [facility] Specimen Type POC Capillary 02/02/2024 8:37 AM EST [facility] Blood Capillary blood specimen / Unknown 02/02/2024 8:33 AM EST 02/02/2024 8:37 AM EST us Darrin Griffin MD LAB POINT OF CARE TE ST DOCKED DEVICE UNSOLICITED RESULTS Final Result Performing Organization Address [facility] de Phone Number [facility] [address] [place] [address] * (ABNORMAL) POCT glucose meter (02/02/2024 4:16 AM EST) POCT Glucose 191(H) 74 - 99 mg/dL 02/02/2024 4:19 AM EST [facility] Comment:Accuracy of a glucos e result obtained from a capillary whole blood specimen relies upon adequate, non-compromised capillary blood flow. If the capillary glucose result is not consistent with the patient's clinical signs and symptoms, glucose testing should be repeated with either an arterial or venous sample on the glucometer or sent to the main labortory for testing. Comment 02/02/2024 4:19 AM EST [facility] Shot Blaster ID Neo Curtis 02/02/2024 4:19 AM EST [facility] Device ID [id number] 02/02/2024 4:19 AM EST [facility] Specimen Type POC Capillary 02/02/2024 4:19 AM EST [facility] Blood Capillary blood specimen / Unknown 02/02/2024 4:16 AM EST 02/02/2024 4:19 AM EST us Darrin Griffin MD LAB POINT OF CARE TE ST DOCKED DEVICE UNSOLICITED RESULTS Final Result Performing Organization Address [facility] Phone Number [facility] [address] [place] [address] * Magnesium (02/02/2024 1:21 AM EST) Magnesium, Plasma 1.9 1.9 - 2.4 mg/dL 02/02/2024 3:29 AM EST [facility] Blood Venous blood specimen / Unknown Venipuncture / Unknown 02/02/2024 1:21 AM EST 02/02/2024 1:31 AM EST us Darrin Griffin MD LAB BLOOD ORDERABLES Final Res ult Performing Organization Address City/[facility]/ZIP Co de Phone Number [facility] [address] [place] [address] * (ABNORMAL) Basic metabolic panel (02/02/2024 1:21 AM EST) Glucose, Plasma 281(H) 74 - 99 mg/dL 02/02/2024 2:24 AM EST [facility] BUN, Plasma 61(H) 7 - 21 mg/dL 02/02/2024 2:24 AM EST [facility] Creatinine, Plasma 2.97(H) 0.70 - 1.20 mg/dL 02/02/2024 2:24 AM EST [facility] BUN/Creatinine Ratio 21 02/02/2024 2:24 AM EST [facility] Sodium, Plasma 136 136 - 145 mmol/L 02/02/2024 2:24 AM EST [facility] Potassium, Plasma 4.2 3.6 - 4.9 mmol/L 02/02/2024 2:24 AM EST [facility] Chloride, Plasma 95(L) 97 - 107 mmol/L 02/02/2024 2:24 AM EST [facility] CO2, Plasma 25 22 - 29 mmol/L 02/02/2024 2:24 AM EST [facility] Anion Gap 16 6 - 16 mmol/L 02/02/2024 2:24 AM EST [facility] Total Calcium, Plasma 8.6(L) 8.9 - 10.2 mg/dL 02/02/2024 2:24 AM EST [facility] eGFRcr 23.9 mL/min/1.7 3m*2 02/02/2024 2:24 AM EST [facility] Comment:Reported eGFRcr in m L/min/1.73m2 is based the CKD-EPI 2020 equation that does not use a race coefficient. Blood Venous blood specimen / Unknown Venipuncture / Unknown 02/02/2024 1:21 AM EST 02/02/2024 1:31 AM EST us Darrin Griffin MD LAB BLOOD ORDERABLES Final Res ult [facility] [address] [place] [address] * (ABNORMAL) POCT glucose meter (02/01/2024 8:46 PM EST) POCT Glucose 199(H) 74 - 99 mg/dL 02/01/2024 8:48 PM EST [facility] Comment:Accuracy of a glucos e result obtained from a capillary whole blood specimen relies upon adequate, non-compromised capillary blood flow. If the capillary glucose result is not consistent with the patient's clinical signs and symptoms, glucose testing should be repeated with either an arterial or venous sample on the glucometer or sent to the main labortory for testing. Comment 02/01/2024 8:48 PM EST [facility] Shot Blaster ID Cammie Hernandez 02/01/2024 8:48 PM EST [facility] Device ID [id number] 02/01/2024 8:48 PM EST [facility] Specimen Type POC Capillary 02/01/2024 8:48 PM EST [facility] Blood Capillary blood specimen / Unknown 02/01/2024 8:46 PM EST 02/01/2024 8:48 PM EST Darrin Griffin MD LAB POINT OF CARE TE ST DOCKED DEVICE UNSOLICITED RESULTS Final Result Performing Organization Address City/State/[facility] Co de Phone Number [facility] [address] [place] [id number] * (ABNORMAL) POCT glucose meter (02/01/2024 4:49 PM EST) Pathologist [facility] POCT Glucose 168(H) 74 - 99 mg/dL 02/01/2024 4:59 PM EST [facility] Comment:Accuracy of a glucos e result obtained from a capillary whole blood specimen relies upon adequate, non-compromised capillary blood flow. If the capillary glucose result is not consistent with the patient's clinical signs and symptoms, glucose testing should be repeated with either an arterial or venous sample on the glucometer or sent to the main labortory for testing. Comment 02/01/2024 4:59 PM EST [facility] Shot Blaster ID Monserrat Wilcox 02/01/2024 4:59 PM EST [facility] Device ID [id number] 02/01/2024 4:59 PM EST [facility] Specimen Type POC Capillary 02/01/2024 4:59 PM EST [facility] Blood Capillary blood specimen / Unknown 02/01/2024 4:49 PM EST 02/01/2024 4:59 PM EST us Darrin Griffin MD LAB POINT OF CARE TE ST DOCKED DEVICE UNSOLICITED RESULTS Final Result Performing Organization Address [facility]/ZIP Co de Phone Number [facility] [address] [place] [address] * Magnesium (02/01/2024 12:24 PM EST) Magnesium, Plasma 2.1 1.9 - 2.4 mg/dL 02/01/2024 11:36 PM EST [facility] Blood Venous blood specimen / Unknown Venipuncture / Unknown 02/01/2024 12:24 PM EST 02/01/2024 12:45 PM EST us Dustin Barakat MD LAB BLOOD ORDERABLES Final Re sult Performing Organization Address City/[facility]/ZIP Co de Phone Number [facility] [address] [place] [address] * (ABNORMAL) Basic metabolic panel (02/01/2024 12:24 PM EST) Glucose, Plasma 164(H) 74 - 99 mg/dL 02/01/2024 1:16 PM EST [facility] BUN, Plasma 55(H) 7 - 21 mg/dL 02/01/2024 1:16 PM EST [facility] Creatinine, Plasma 2.77(H) 0.70 - 1.20 mg/dL 02/01/2024 1:16 PM EST [facility] BUN/Creatinine Ratio 20 02/01/2024 1:16 PM EST [facility] Sodium, Plasma 138 136 - 145 mmol/L 02/01/2024 1:16 PM EST [facility] Potassium, Plasma 4.1 3.6 - 4.9 mmol/L 02/01/2024 1:16 PM EST [facility] Chloride, Plasma 96(L) 97 - 107 mmol/L 02/01/2024 1:16 PM EST [facility] CO2, Plasma 29 22 - 29 mmol/L 02/01/2024 1:16 PM EST [facility] Anion Gap 13 6 - 16 mmol/L 02/01/2024 1:16 PM EST [facility] Total Calcium, Plasma 9.4 8.9 - 10.2 mg/dL 02/01/2024 1:16 PM EST [facility] eGFRcr 26.0 mL/min/1.7 3m*2 02/01/2024 1:16 PM EST [facility] Comment:Reported eGFRcr in m L/min/1.73m2 is based the CKD-EPI 2020 equation that does not use a race coefficient. Blood Venous blood specimen / Unknown Venipuncture / Unknown 02/01/2024 12:24 PM EST 02/01/2024 12:45 PM EST us Darrin Griffin MD LAB BLOOD ORDERABLES Final Res ult [facility] [address] [place] [address] * (ABNORMAL) POCT glucose meter (02/01/2024 12:18 PM EST) POCT Glucose 149(H) 74 - 99 mg/dL 02/01/2024 12:26 PM EST [facility] Comment:Accuracy of a glucos e result obtained from a capillary whole blood specimen relies upon adequate, non-compromised capillary blood flow. If the capillary glucose result is not consistent with the patient's clinical signs and symptoms, glucose testing should be repeated with either an arterial or venous sample on the glucometer or sent to the main labortory for testing. Comment 02/01/2024 12:26 PM EST [facility] Shot Blaster ID Casi Sharpe 12:26 PM EST [facility] Device ID [id number] 02/01/2024 12:26 PM EST [facility] Specimen Type POC Capillary 02/01/2024 12:26 PM EST [facility] Blood Capillary blood specimen / Unknown 02/01/2024 12:18 PM EST 02/01/2024 12:26 PM EST us Darrin Griffin MD LAB POINT OF CARE TE ST DOCKED DEVICE UNSOLICITED RESULTS Final Result Performing Organization Address City/[facility]/ZIP Co de Phone Number [facility] [address] [place] [address] * (ABNORMAL) POCT glucose meter (02/01/2024 12:03 PM EST) POCT Glucose 171(H) 74 - 99 mg/dL 02/01/2024 12:15 PM EST [facility] Comment:Accuracy of a glucos e result obtained from a capillary whole blood specimen relies upon adequate, non-compromised capillary blood flow. If the capillary glucose result is not consistent with the patient's clinical signs and symptoms, glucose testing should be repeated with either an arterial or venous sample on the glucometer or sent to the main labortory for testing. Comment 02/01/2024 12:15 PM EST [facility] Shot Blaster ID Monserrat Wilcox 02/01/2024 12:15 PM EST [facility] Device ID [id number] 02/01/2024 12:15 PM EST [facility] Specimen Type POC Capillary 02/01/2024 12:15 PM EST [facility] Blood Capillary blood specimen / Unknown 02/01/2024 12:03 PM EST 02/01/2024 12:15 PM EST us Darrin Griffin MD LAB POINT OF CARE TE ST DOCKED DEVICE UNSOLICITED RESULTS Final Result Performing Organization Address City/[facility] Co de Phone Number [facility] [address] [place] [address] * (ABNORMAL) POCT glucose meter (02/01/2024 8:27 AM EST) POCT Glucose 169(H) 74 - 99 mg/dL 02/01/2024 8:29 AM EST [facility] Comment:Accuracy of a glucos e result obtained from a capillary whole blood specimen relies upon adequate, non-compromised capillary blood flow. If the capillary glucose result is not consistent with the patient's clinical signs and symptoms, glucose testing should be repeated with either an arterial or venous sample on the glucometer or sent to the main labortory for testing. Comment 02/01/2024 8:29 AM EST [facility] Shot Blaster ID Alma Faulkner [id number] 8:29 AM EST [facility] Device ID [id number] 02/01/2024 8:29 AM EST [facility] Specimen Type POC Capillary 02/01/2024 8:29 AM EST [facility] Blood Capillary blood specimen / Unknown 02/01/2024 8:27 AM EST 02/01/2024 8:29 AM EST us Darrin Griffin MD LAB POINT OF CARE TE ST DOCKED DEVICE UNSOLICITED RESULTS Final Result [facility] [address] [place] [address] * VAS US Venous Duplex Lower Extremity [...] MD on 02/02/2024 9:39 AM us Darrin Griffin MD CV VASCULAR PROCEDURES Final R esult * (ABNORMAL) Comprehensive metabolic panel (02/01/2024 4:55 AM EST) Glucose, Plasma 183(H) 74 - 99 mg/dL 02/01/2024 5:33 AM EST [facility] BUN, Plasma 53(H) 7 - 21 mg/dL 02/01/2024 5:33 AM EST [facility] Creatinine, Plasma 2.75(H) 0.70 - 1.20 mg/dL 02/01/2024 5:33 AM EST [facility] BUN/Creatinine Ratio 19 02/01/2024 5:33 AM EST [facility] Sodium, Plasma 138 136 - 145 mmol/L 02/01/2024 5:33 AM EST [facility] Potassium, Plasma 4.3 3.6 - 4.9 mmol/L 02/01/2024 5:33 AM [facility] Chloride, Plasma 99 97 - 107 mmol/L 02/01/2024 5:33 AM EST [facility] CO2, Plasma 26 22 - 29 mmol/L 02/01/2024 5:33 AM EST [facility] Anion Gap 13 6 - 16 mmol/L 02/01/2024 5:33 AM [facility] Total Calcium, Plasma 9.1 8.9 - 10.2 mg/dL 02/01/2024 5:33 AM EST [facility] Total Protein 6.4 6.3 - 7.9 g/dL 02/01/2024 5:33 AM EST [facility] Albumin, Plasma 3.3(L) 3.5 - 5.2 g/dL 02/01/2024 5:33 AM EST [facility] AST, Plasma 39 10 - 50 U/L 02/01/2024 5:33 AM EST [facility] ALT, Plasma 26 10 - 50 U/L 02/01/2024 5:33 AM EST [facility] Alkaline Phosphatase, Plasma 331(H) 40 - 115 U/L 02/01/2024 5:33 AM EST [facility] Total Bilirubin, Plasma 1.0 0.2 - 1.1 mg/dL 02/01/2024 5:33 AM EST [facility] eGFRcr 26.2 mL/min/1.7 3m*2 02/01/2024 5:33 AM EST [facility] Comment:Reported eGFRcr in m L/min/1.73m2 is based the CKD-EPI 2020 equation that does not use a race coefficient. Blood Venous blood specimen / Unknown Venipuncture / Unknown 02/01/2024 4:55 AM EST 02/01/2024 5:05 AM EST us Darrin Griffin MD LAB BLOOD ORDERABLES Final Res ult [facility] [address] [place] [address] * (ABNORMAL) POCT glucose meter (01/31/2024 8:31 PM EST) POCT Glucose 124(H) 74 - 99 mg/dL 01/31/2024 8:33 PM EST [facility] Comment:Accuracy of a glucos e result obtained from a capillary whole blood specimen relies upon adequate, non-compromised capillary blood flow. If the capillary glucose result is not consistent with the patient's clinical signs and symptoms, glucose testing should be repeated with either an arterial or venous sample on the glucometer or sent to the main labortory for testing. Comment 01/31/2024 8:33 PM EST [facility] Shot Blaster ID Neo Curtis 01/31/2024 8:33 PM EST [facility] Device ID [id number] 01/31/2024 8:33 PM EST [facility] Specimen Type POC Capillary 01/31/2024 8:33 PM EST [facility] Blood Capillary blood specimen / Unknown 01/31/2024 8:31 PM EST 01/31/2024 8:33 PM EST us Darrin Griffin MD LAB POINT OF CARE TE ST DOCKED DEVICE UNSOLICITED RESULTS Final Result Performing Organization Address City/[facility] Co de Phone Number [facility] [address] [place] [address] * (ABNORMAL) POCT glucose meter (01/31/2024 5:29 PM EST) POCT Glucose 172(H) 74 - 99 mg/dL 01/31/2024 5:34 PM EST [facility] Comment:Accuracy of a glucos e result obtained from a capillary whole blood specimen relies upon adequate, non-compromised capillary blood flow. If the capillary glucose result is not consistent with the patient's clinical signs and symptoms, glucose testing should be repeated with either an arterial or venous sample on the glucometer or sent to the main labortory for testing. Comment 01/31/2024 5:34 PM EST [facility] Shot Blaster ID Monserrat Wilcox 01/31/2024 5:34 PM EST [facility] Device ID [id number] 01/31/2024 5:34 PM EST [facility] Specimen Type POC Capillary 01/31/2024 5:34 PM EST [facility] Blood Capillary blood specimen / Unknown 01/31/2024 5:29 PM EST 01/31/2024 5:34 PM EST us Darrin Griffin MD LAB POINT OF CARE TE ST DOCKED DEVICE UNSOLICITED RESULTS Final Result [facility] [address] [place] [address] * (ABNORMAL) Basic metabolic panel (01/31/2024 4:44 PM EST) Glucose, Plasma 161(H) 74 - 99 mg/dL 01/31/2024 5:22 PM EST [facility] BUN, Plasma 50(H) 7 - 21 mg/dL 01/31/2024 5:22 PM EST [facility] Creatinine, Plasma 2.78(H) 0.70 - 1.20 mg/dL 01/31/2024 5:22 PM EST [facility] BUN/Creatinine Ratio 18 01/31/2024 5:22 PM EST [facility] Sodium, Plasma 136 136 - 145 mmol/L 01/31/2024 5:22 PM EST [facility] Potassium, Plasma 4.3 3.6 - 4.9 mmol/L 01/31/2024 5:22 PM EST [facility] Chloride, Plasma 98 97 - 107 mmol/L 01/31/2024 5:22 PM EST [facility] CO2, Plasma 27 22 - 29 mmol/L 01/31/2024 5:22 PM EST [facility] Anion Gap 11 6 - 16 mmol/L 01/31/2024 5:22 PM EST [facility] Total Calcium, Plasma 8.9 8.9 - 10.2 mg/dL 01/31/2024 5:22 PM EST [facility] eGFRcr 25.9 mL/min/1.7 3m*2 01/31/2024 5:22 PM EST [facility] Comment:Reported eGFRcr in m L/min/1.73m2 is based the CKD-EPI 2020 equation that does not use a race coefficient. Blood Venous blood specimen / Unknown Venipuncture / Unknown 01/31/2024 4:44 PM EST 01/31/2024 4:52 PM EST us Darrin Griffin MD LAB BLOOD ORDERABLES Final Res ult [facility] [address] [place] [address] * (ABNORMAL) POCT glucose meter (01/31/2024 12:19 PM EST) POCT Glucose 206(H) 74 - 99 mg/dL 01/31/2024 12:27 PM EST [facility] Comment:Accuracy of a glucos e result obtained from a capillary whole blood specimen relies upon adequate, non-compromised capillary blood flow. If the capillary glucose result is not consistent with the patient's clinical signs and symptoms, glucose testing should be repeated with either an arterial or venous sample on the glucometer or sent to the main labortory for testing. Comment 01/31/2024 12:27 PM EST [facility] Shot Blaster ID Monserrat Wilcox 01/31/2024 12:27 PM EST [facility] Device ID [id number] 01/31/2024 12:27 PM EST [facility] Specimen Type POC Capillary 01/31/2024 12:27 PM EST [facility] Blood Capillary blood specimen / Unknown 01/31/2024 12:19 PM EST 01/31/2024 12:27 PM EST Darrin Griffin MD LAB POINT OF CARE TE ST DOCKED DEVICE UNSOLICITED RESULTS Final Result Performing Organization Address City/State/[facility] Co de Phone Number [facility] [address] [place] [address] * (ABNORMAL) POCT glucose meter (01/31/2024 8:30 AM EST) POCT Glucose 249(H) 74 - 99 mg/dL 01/31/2024 8:38 AM EST [facility] Comment:Accuracy of a glucos e result obtained from a capillary whole blood specimen relies upon adequate, non-compromised capillary blood flow. If the capillary glucose result is not consistent with the patient's clinical signs and symptoms, glucose testing should be repeated with either an arterial or venous sample on the glucometer or sent to the main labortory for testing. Comment 01/31/2024 8:38 AM EST [facility] Shot Blaster ID Monserrat Wilcox 01/31/2024 8:38 AM EST [facility] Device ID [id number] 01/31/2024 8:38 AM EST [facility] Specimen Type POC Capillary 01/31/2024 8:38 AM EST [facility] Blood Capillary blood specimen / Unknown 01/31/2024 8:30 AM EST 01/31/2024 8:38 AM EST us Darrin Griffin MD LAB POINT OF CARE TE ST DOCKED DEVICE UNSOLICITED RESULTS Final Result [facility] [address] [place] [address] * (ABNORMAL) Basic metabolic panel (01/31/2024 7:45 AM EST) Glucose, Plasma 248(H) 74 - 99 mg/dL 01/31/2024 8:37 AM EST [facility] BUN, Plasma 46(H) 7 - 21 mg/dL 01/31/2024 8:37 AM EST [facility] Creatinine, Plasma 2.72(H) 0.70 - 1.20 mg/dL 01/31/2024 8:37 AM EST [facility] BUN/Creatinine Ratio 17 01/31/2024 8:37 AM EST [facility] Sodium, Plasma 134(L) 136 - 145 mmol/L 01/31/2024 8:37 AM EST [facility] Potassium, Plasma 5.1(H) 3.6 - 4.9 mmol/L 01/31/2024 8:37 AM EST [facility] Chloride, Plasma 98 97 - 107 mmol/L 01/31/2024 8:37 AM EST [facility] CO2, Plasma 23 22 - 29 mmol/L 01/31/2024 8:37 AM EST [facility] Anion Gap 13 6 - 16 mmol/L 01/31/2024 8:37 AM EST [facility] Total Calcium, Plasma 8.4(L) 8.9 - 10.2 mg/dL 01/31/2024 8:37 AM EST [facility] eGFRcr 26.6 mL/min/1.7 3m*2 01/31/2024 8:37 AM EST [facility] Comment:Reported eGFRcr in m L/min/1.73m2 is based the CKD-EPI 2020 equation that does not use a race coefficient. Blood Venous blood specimen / Unknown Venipuncture / Unknown 01/31/2024 7:45 AM EST 01/31/2024 8:05 AM EST us Darrin Griffin MD LAB BLOOD ORDERABLES Final Res ult Performing Organization Address City/[facility]/ZIP Co de Phone Number [facility] [address] [place] [address] * (ABNORMAL) POCT glucose meter (01/31/2024 3:27 AM EST) POCT Glucose 212(H) 74 - 99 mg/dL 01/31/2024 3:30 AM EST [facility] Comment:Accuracy of a glucos e result obtained from a capillary whole blood specimen relies upon adequate, non-compromised capillary blood flow. If the capillary glucose result is not consistent with the patient's clinical signs and symptoms, glucose testing should be repeated with either an arterial or venous sample on the glucometer or sent to the main labortory for testing. Comment 01/31/2024 3:30 AM EST [facility] Shot Blaster ID Chrissy Hicks 01/31/2024 3:30 AM EST [facility] Device ID [id number] 01/31/2024 3:30 AM EST [facility] Specimen Type POC Capillary 01/31/2024 3:30 AM EST [facility] Blood Capillary blood specimen / Unknown 01/31/2024 3:27 AM EST 01/31/2024 3:30 AM EST us Darrin Griffin MD LAB POINT OF CARE TE ST DOCKED DEVICE UNSOLICITED RESULTS Final Result Performing Organization Address City/[facility]/ZIP Co de Phone Number [facility] [address] [place] [address] * (ABNORMAL) POCT glucose meter (01/30/2024 7:52 PM EST) POCT Glucose 355(H) 74 - 99 mg/dL 01/30/2024 7:54 PM EST [facility] Comment:Accuracy of a glucos e result obtained from a capillary whole blood specimen relies upon adequate, non-compromised capillary blood flow. If the capillary glucose result is not consistent with the patient's clinical signs and symptoms, glucose testing should be repeated with either an arterial or venous sample on the glucometer or sent to the main labortory for testing. Comment 01/30/2024 7:54 PM EST [facility] Shot Blaster ID Neo Curtis 01/30/2024 7:54 PM EST [facility] Device ID [id number] 01/30/2024 7:54 PM EST [facility] Specimen Type POC Capillary 01/30/2024 7:54 PM EST [facility] Blood Capillary blood specimen / Unknown 01/30/2024 7:52 PM EST 01/30/2024 7:54 PM EST Darrin Griffin MD LAB POINT OF CARE TE ST DOCKED DEVICE UNSOLICITED RESULTS Final Result [facility] [address] [place] [address] * (ABNORMAL) Comprehensive metabolic panel (01/30/2024 7:51 PM EST) Glucose, Plasma 348(H) 74 - 99 mg/dL 01/30/2024 8:52 PM EST [facility] BUN, Plasma 39(H) 7 - 21 mg/dL 01/30/2024 8:52 PM EST [facility] Creatinine, Plasma 2.73(H) 0.70 - 1.20 mg/dL 01/30/2024 8:52 PM EST [facility] BUN/Creatinine Ratio 14 01/30/2024 8:52 PM EST [facility] Sodium, Plasma 133(L) 136 - 145 mmol/L 01/30/2024 8:52 PM EST [facility] Potassium, Plasma 5.8(H) 3.6 - 4.9 mmol/L 01/30/2024 8:52 PM EST [facility] Chloride, Plasma 99 97 - 107 mmol/L 01/30/2024 8:52 PM EST [facility] CO2, Plasma 19(L) 22 - 29 mmol/L 01/30/2024 8:52 PM EST [facility] Anion Gap 15 6 - 16 mmol/L 01/30/2024 8:52 PM EST [facility] Total Calcium, Plasma 8.6(L) 8.9 - 10.2 mg/dL 01/30/2024 8:52 PM EST [facility] Total Protein 6.2(L) 6.3 - 7.9 g/dL 01/30/2024 8:52 PM EST [facility] Albumin, Plasma 3.2(L) 3.5 - 5.2 g/dL 01/30/2024 8:52 PM EST [facility] AST, Plasma 47 10 - 50 U/L 01/30/2024 8:52 PM EST [facility] Comment:Hemolyzed, result ma y be falsely increased. ALT, Plasma 36 10 - 50 U/L 01/30/2024 8:52 PM EST [facility] Alkaline Phosphatase, Plasma 357(H) 40 - 115 U/L 01/30/2024 8:52 PM EST [facility] Total Bilirubin, Plasma 1.5(H) 0.2 - 1.1 mg/dL 01/30/2024 8:52 PM EST [facility] eGFRcr 26.5 mL/min/1.7 3m*2 01/30/2024 8:52 PM EST [facility] Comment:Reported eGFRcr in m L/min/1.73m2 is based the CKD-EPI 2020 equation that does not use a race coefficient. Blood Venous blood specimen / Unknown Venipuncture / Unknown 01/30/2024 7:51 PM EST 01/30/2024 7:58 PM EST us Darrin Griffin MD LAB BLOOD ORDERABLES Final Res ult Performing Organization Address City/[facility]/ZIP Co de Phone Number [facility] [address] [place] [address] * Magnesium (01/30/2024 7:51 PM EST) Magnesium, Plasma 2.1 1.9 - 2.4 mg/dL 01/30/2024 8:52 PM EST [facility] Blood Venous blood specimen / Unknown Venipuncture / Unknown 01/30/2024 7:51 PM EST 01/30/2024 7:58 PM EST us Darrin Griffin MD LAB BLOOD ORDERABLES Final Res ult Performing Organization Address City/[facility]/ZIP Co de Phone Number [facility] [address] [place] [address] * (ABNORMAL) POCT glucose meter (01/30/2024 5:42 PM EST) POCT Glucose 426(H) 74 - 99 mg/dL 01/30/2024 5:44 PM EST [facility] Comment:Accuracy of a glucos e result obtained from a capillary whole blood specimen relies upon adequate, non-compromised capillary blood flow. If the capillary glucose result is not consistent with the patient's clinical signs and symptoms, glucose testing should be repeated with either an arterial or venous sample on the glucometer or sent to the main labortory for testing. Comment 01/30/2024 5:44 PM EST [facility] Shot Blaster ID Dottie Collazo 01/30/2024 5:44 PM EST [facility] Device ID [id number] 01/30/2024 5:44 PM EST [facility] Specimen Type POC Capillary 01/30/2024 5:44 PM EST [facility] Blood Capillary blood specimen / Unknown 01/30/2024 5:42 PM EST 01/30/2024 5:44 PM EST us Darrin Griffin MD LAB POINT OF CARE TE ST DOCKED DEVICE UNSOLICITED RESULTS Final Result Performing Organization Address City/State/[facility] Co de Phone Number [facility] [address] [place] [address] * (ABNORMAL) Troponin T, High Sensitivity, 2 Hour, Plasma (01/30/2024 1:20 PM EST) [facility] Troponin T, High Sensitivity, 2 Hour 65(H) <19 ng/L 01/30/2024 2:24 PM EST [facility] Troponin Delta 6 <10 ng/L 01/30/2024 2:24 PM EST [facility] Troponin Delta Interpretation Not Significant 01/30/2024 2:24 PM EST [facility] Comment:Not Significant. No acute change in troponin observed between the baseline and 2 hour samples. Blood Venous blood specimen / Unknown Venipuncture / Unknown 01/30/2024 1:20 PM EST 01/30/2024 1:32 PM EST us Carmencita Slaughter MD LAB BLOOD ORDERABLES Final Res ult Performing Organization Address City/[facility]/ZIP Co de Phone Number [facility] [address] [place] [address] * (ABNORMAL) POCT glucose meter (01/30/2024 1:14 PM EST) [facility] POCT Glucose 243(H) 74 - 99 mg/dL 01/30/2024 1:16 PM EST [facility] Comment:Accuracy of a glucos e result obtained from a capillary whole blood specimen relies upon adequate, non-compromised capillary blood flow. If the capillary glucose result is not consistent with the patient's clinical signs and symptoms, glucose testing should be repeated with either an arterial or venous sample on the glucometer or sent to the main labortory for testing. Comment 01/30/2024 1:16 PM EST [facility] Shot Blaster ID Jennifer Goddard 01/30/2024 1:16 PM EST [facility] Device ID [id number] 01/30/2024 1:16 PM EST [facility] Specimen Type POC Capillary 01/30/2024 1:16 PM EST [facility] Blood Capillary blood specimen / Unknown 01/30/2024 1:14 PM EST 01/30/2024 1:16 PM EST us Darrin Griffin MD LAB POINT OF CARE TE ST DOCKED DEVICE UNSOLICITED RESULTS Final Result Performing Organization Address [facility] Co de Phone Number [facility] [address] [place] [address] * (ABNORMAL) Multi Drug Resistance Test (01/30/2024 12:32 PM EST) [facility] Culture Methicillin-Resist ant Staphylococcus aureus(AA) 01/31/2024 12:14 PM EST [facility] Comment:Previously isolated, still present in culture. Swab Both anterior nares / Unknown Non-blood Collection / Unknown 01/30/2024 12:32 PM EST 01/30/2024 12:57 PM EST us Darrin Griffin MD LAB MICROBIOLOGY - GENERAL ORD ERABLES Final Result Performing Organization Address City/[facility]/ZIP Co de Phone Number [facility] [address] [place] [address] * (ABNORMAL) Potassium (01/30/2024 10:32 AM EST) Potassium, Plasma 5.1(H) 3.6 - 4.9 mmol/L 01/30/2024 10:[address] [facility] Blood Venous blood specimen / Unknown Venipuncture / Unknown 01/30/2024 10:32 AM EST 01/30/2024 10:34 AM EST Carmencita Slaughter MD LAB BLOOD ORDERABLES Final Res ult [facility] [address] [place] [address] * (ABNORMAL) Troponin now and 120 min (01/30/2024 10:32 AM EST) Pathologist [facility] Troponin T, High Sensitivity, 0 Hour 71(H) <19 ng/L 01/30/2024 10:[address] [facility] Blood Venous blood specimen / Unknown Venipuncture / Unknown 01/30/2024 10:32 AM EST 01/30/2024 10:34 AM EST Carmencita Slaughter MD LAB BLOOD ORDERABLES Final Res ult [facility] [address] [place] [address] * Light Green Top (01/30/2024 9:55 AM EST) Pathologist [facility] Extra Hold for add-ons 01/30/2024 12:01 PM EST [facility] Comment:Auto resulted. Blood Venous blood specimen / Unknown 01/30/2024 9:55 AM EST 01/30/2024 9:58 AM EST us Carmencita Slaughter MD LAB BLOOD ORDERABLES Final Res ult [facility] [address] [place] [address] * (ABNORMAL) Potassium (01/30/2024 9:55 AM EST) Potassium, Plasma 6.3(H) 3.6 - 4.9 mmol/L 01/30/2024 10:19 AM EST [facility] Comment:Hemolyzed, result ma y be falsely increased. Blood Venous blood specimen / Unknown Venipuncture / Unknown 01/30/2024 9:55 AM EST 01/30/2024 9:57 AM EST us Carmencita Slaughter MD LAB BLOOD ORDERABLES Final Res ult [facility] [address] [place] [address] * XR Chest 1 View (01/30/2024 9:20 AM EST) Anatomical Region Laterality Modality Chest Digital Radiogra [...] Detected Not Detected 01/30/2024 10:18 AM EST [facility] Influenza A Virus PCR Result Not Detected Not Detected 01/30/2024 10:18 AM EST [facility] Influenza B Virus PCR Result Not Detected Not Detected 01/30/2024 10:18 AM EST [facility] Respiratory Syncytial Virus (RSV) PCR Result Not Detected Not Detected 01/30/2024 10:18 AM EST [facility] Swab Nasopharyngeal structure / Unknown Non-blood Collection / Unknown 01/30/2024 9:13 AM EST 01/30/2024 9:33 AM EST [facility] - 01/30/2024 10:18 AM EST This [...] clinical signs and symptoms consistent with COVID-19. us Carmencita Slaughter MD LAB MICROBIOLOGY - GENERAL ORD ERABLES Final Result [facility] [address] [place] [address] * (ABNORMAL) BNP (01/30/2024 9:13 AM EST) N-Terminal, PROBNP, Plasma >70,000(H) 0 - 899 pg/mL 01/30/2024 9:53 AM EST [facility] Blood Venous blood specimen / Unknown Venipuncture / Unknown 01/30/2024 9:13 AM EST 01/30/2024 9:18 AM EST us Carmencita Slaughter MD LAB BLOOD ORDERABLES Final Res ult Performing Organization Address City/[facility]/ZIP Co de Phone Number [facility] [address] [place] [address] * (ABNORMAL) CMP (01/30/2024 9:13 AM EST) Glucose, Plasma 165(H) 74 - 99 mg/dL 01/30/2024 9:43 AM EST [facility] BUN, Plasma 35(H) 7 - 21 mg/dL 01/30/2024 9:43 AM EST [facility] Creatinine, Plasma 2.37(H) 0.70 - 1.20 mg/dL 01/30/2024 9:43 AM EST [facility] BUN/Creatinine Ratio 15 01/30/2024 9:43 AM EST [facility] Sodium, Plasma 133(L) 136 - 145 mmol/L 01/30/2024 9:43 AM EST [facility] Potassium, Plasma 8.2(HH) 3.6 - 4.9 mmol/L 01/30/2024 9:43 AM EST [facility] Comment:Hemolyzed, result ma y be falsely increased. Chloride, Plasma 101 97 - 107 mmol/L 01/30/2024 9:43 AM EST [facility] CO2, Plasma 26 22 - 29 mmol/L 01/30/2024 9:43 AM EST [facility] Anion Gap 6 6 - 16 mmol/L 01/30/2024 9:43 AM EST [facility] Total Calcium, Plasma 8.5(L) 8.9 - 10.2 mg/dL 01/30/2024 9:43 AM EST [facility] Total Protein 7.0 6.3 - 7.9 g/dL 01/30/2024 9:43 AM EST [facility] Albumin, Plasma 3.2(L) 3.5 - 5.2 g/dL 01/30/2024 9:43 AM EST [facility] AST, Plasma 93(H) 10 - 50 U/L 01/30/2024 9:43 AM EST [facility] Comment:Hemolyzed, result ma y be falsely increased. ALT, Plasma 40 10 - 50 U/L 01/30/2024 9:43 AM EST [facility] Comment:Hemolyzed, result ma y be falsely increased or decreased. Alkaline Phosphatase, Plasma 368(H) 40 - 115 U/L 01/30/2024 9:43 AM EST [facility] Comment:Hemolyzed, result ma y be falsely decreased. Total Bilirubin, Plasma 1.8(H) 0.2 - 1.1 mg/dL 01/30/2024 9:43 AM EST [facility] eGFRcr 31.4 mL/min/1.7 3m*2 01/30/2024 9:43 AM EST [facility] Comment:Reported eGFRcr in m L/min/1.73m2 is based the CKD-EPI 2020 equation that does not use a race coefficient. Blood Venous blood specimen / Unknown Venipuncture / Unknown 01/30/2024 9:13 AM EST 01/30/2024 9:18 AM EST us Carmencita Slaughter MD LAB BLOOD ORDERABLES Final Res ult [facility] [address] [place] [address] * (ABNORMAL) CBC w/diff (01/30/2024 9:13 AM EST) WBC Count 3.68(L) 3.70 - 10.30 10*3/uL LAB HEMATOLOGY METHOD 01/30/2024 9:22 AM EST [facility] RBC Count 4.48(L) 4.60 - 6.10 10*6/uL LAB HEMATOLOGY METHOD 01/30/2024 9:22 AM EST [facility] HGB 11.6(L) 13.7 - 17.5 g/dL LAB HEMATOLOGY METHOD 01/30/2024 9:22 AM EST [facility] HCT 37.8(L) 40.0 - 51.0 % LAB HEMATOLOGY METHOD 01/30/2024 9:22 AM EST [facility] Platelet Count 245 155 - 369 10*3/uL LAB HEMATOLOGY METHOD 01/30/2024 9:22 AM EST [facility] MCV 84 79 - 98 fL LAB HEMATOLOGY METHOD 01/30/2024 9:22 AM [facility] MCH 25.9(L) 26.0 - 32.0 pg LAB HEMATOLOGY METHOD 01/30/2024 9:22 AM EST [facility] MCHC 30.7 30.7 - 35.5 g/dL LAB HEMATOLOGY METHOD 01/30/2024 9:22 AM [facility] RDW 19.9(H) 11.5 - 14.5 % LAB HEMATOLOGY METHOD 01/30/2024 9:22 AM [facility] MPV 10.7 8.8 - 12.5 fL LAB HEMATOLOGY METHOD 01/30/2024 9:22 AM [facility] nRBC 0.0 <=0.0 per 100 WBCs LAB HEMATOLOGY METHOD 01/30/2024 9:22 AM [facility] Differential Type Automated LAB HEMATOLOGY METHOD 01/30/2024 9:22 AM [facility] Neutrophils % 76 % LAB HEMATOLOGY METHOD 01/30/2024 9:22 AM [facility] Lymphocytes % 17 % LAB HEMATOLOGY METHOD 01/30/2024 9:22 AM [facility] Monocytes % 4 % LAB HEMATOLOGY METHOD 01/30/2024 9:22 AM [facility] Eosinophils % 2 % LAB HEMATOLOGY METHOD 01/30/2024 9:22 AM [facility] Basophils % 1 % LAB HEMATOLOGY METHOD 01/30/2024 9:22 AM [facility] Immature Granulocytes % 0 % LAB HEMATOLOGY METHOD 01/30/2024 9:22 AM EST [facility] Neutrophils Absolute 2.79 1.60 - 6.10 10*3/uL LAB HEMATOLOGY METHOD 01/30/2024 9:22 AM EST [facility] Lymphocytes Absolute 0.61(L) 1.20 - 3.90 10*3/uL LAB HEMATOLOGY METHOD 01/30/2024 9:22 AM EST [facility] Monocytes Absolute 0.15(L) 0.30 - 0.90 10*3/uL LAB HEMATOLOGY METHOD 01/30/2024 9:22 AM EST [facility] Eosinophils Absolute 0.09 0.00 - 0.50 10*3/uL LAB HEMATOLOGY METHOD 01/30/2024 9:22 AM EST [facility] Basophils Absolute 0.03 0.00 - 0.10 10*3/uL LAB HEMATOLOGY METHOD 01/30/2024 9:22 AM EST [facility] Immature Granulocytes Absolute 0.01 0.00 - 0.06 10*3/uL LAB HEMATOLOGY METHOD 01/30/2024 9:22 AM EST [facility] Blood Venous blood specimen / Unknown Venipuncture / Unknown 01/30/2024 9:13 AM EST 01/30/2024 9:18 AM EST Narrative [facility] - 01/30/2024 9:22 AM EST Therapeutic decision making should be based on absolute values, rather than percentages. us Carmencita Slaughter MD LAB BLOOD ORDERABLES Final Res ult Performing Organization Address City/State/[facility] Co de Phone Number [facility] [address] [place] [address] * EKG now - STAT (adult) (01/30/2024 9:05 AM EST) EKG DIAGNOSIS CLASS Abnormal MUSE ECG Ventricular Rate 84 BPM MUSE ECG Atrial Rate 84 BPM MUSE ECG WY Interval 152 ms MUSE ECG QRSD Interval 120 ms MUSE ECG QT Interval 408 ms MUSE ECG QTC Interval 482 ms MUSE ECG P Amery 51 degrees MUSE ECG R Amery -41 degrees MUSE ECG T Wave Amery 123 degrees MUSE ECG Diagnosis Normal sinus rhythm MUSE ECG Diagnosis Possible Left atrial enlargement MUSE ECG Diagnosis Left axis deviation MUSE ECG Diagnosis Left ventricular hypertrophy with QRS widening ( Uzair product ) MUSE ECG Diagnosis T wave abnormality, consider lateral ischemia MUSE ECG Diagnosis MUSE ECG Diagnosis MUSE ECG Diagnosis Confirmed by Heather Dan ([id number]) on 01/30/2024 4:54:24 PM MUSE ECG 01/30/2024 9:05 AM EST 01/30/2024 4:54 PM EST us Carmencita Slaughter MD ECG ORDERABLES Final Result MUSE ECG * (ABNORMAL) POCT glucose meter (01/30/2024 8:43 AM EST) POCT Glucose 164(H) 74 - 99 mg/dL 01/30/2024 8:45 AM EST [facility] Comment:Accuracy of a glucos e result obtained from a capillary whole blood specimen relies upon adequate, non-compromised capillary blood flow. If the capillary glucose result is not consistent with the patient's clinical signs and symptoms, glucose testing should be repeated with either an arterial or venous sample on the glucometer or sent to the main labortory for testing. Comment 01/30/2024 8:45 AM EST [facility] Shot Blaster ID Macrina Roman 8:45 AM EST [facility] Device ID [id number] 01/30/2024 8:45 AM EST [facility] Specimen Type POC Capillary 01/30/2024 8:45 AM EST [facility] Blood Capillary blood specimen / Unknown 01/30/2024 8:43 AM EST 01/30/2024 8:45 AM EST us Generic Provider Poct LAB POINT OF CARE TEST DOCKED DEVICE UNSOLICITED RESULTS Final Result [facility] [address] [place] [address] documented in this encounter Visit Diagnoses Diagnosis Heart failure (CMS/HCC)- Primary Unspecified heart failure Acute on chronic systolic congestive heart failure (CMS/HCC) Acute decompensated heart failure (CMS/HCC) documented in this encounter Admitting Diagnoses Diagnosis Heart failure (CMS/HCC) Unspecified heart failure documented in this encounter Administered Medications Inactive Administered Medications - up to 3 most recent administrations Medication Order MAR Action Action Date Dose Rate Site acetaminophen (Tylenol) tablet 650 mg 650 mg, Oral, Every 8 hours PRN, Starting on 01/30/24 at 1143, Until 02/05/24 at 1223, Routine, mild pain Given 02/01/2024 11:21 PM EST 650 mg aspirin chewable tablet 81 mg 81 mg, Oral, Daily, First dose on 01/30/24 at 1600, Until Discontinued, Routine Given 02/05/2024 8:12 AM EST 81 mg Given 02/04/2024 9:30 AM EST 81 mg Given 02/03/2024 8:19 AM EST 81 mg atorvastatin (Lipitor) tablet 80 mg 80 mg, Oral, Nightly, First dose (after last modification) on Chelita 02/03/24 at 2100, Until Discontinued, Routine Given 02/04/2024 9:16 PM EST 80 mg Given 02/03/2024 9:09 PM EST 80 mg bumetanide (Bumex) injection 2 mg 2 mg, Intravenous, Once, 1 dose, On 01/30/24 at 1010, Routine Given 01/30/2024 10:23 AM EST 2 mg bumetanide (Bumex) injection 4 mg 4 mg, Intravenous, Once, 1 dose, On 01/30/24 at 1150, Routine Given 01/30/2024 12:39 PM EST 4 mg bumetanide (Bumex) injection 4 mg 4 mg, Intravenous, Once, 1 dose, On Wed01/31/24 at 1145, Routine Given 01/31/2024 12:45 PM EST 4 mg bumetanide (Bumex) injection 4 mg 4 mg, Intravenous, Once, 1 dose, On Wed01/31/24 at 1800, Routine Given 01/31/2024 6:28 PM EST 4 mg bumetanide (Bumex) injection 4 mg 4 mg, Intravenous, Once, 1 dose, On Wed02/01/24 at 0730, Routine Given 02/01/2024 8:31 AM EST 4 mg bumetanide (Bumex) injection 4 mg 4 mg, Intravenous, Once, 1 dose, On Wed02/01/24 at 1500, Routine Given 02/01/2024 3:01 PM EST 4 mg bumetanide (Bumex) tablet 1 mg 1 mg, Oral, Once, 1 dose, On Wed02/04/24 at 1045, STAT Given 02/04/2024 10:15 AM EST 1 mg bumetanide (Bumex) tablet 2 mg 2 mg, Oral, Once, 1 dose, On Chelita 02/03/24 at 1030, Routine Given 02/03/2024 10:09 AM EST 2 mg bumetanide (Bumex) tablet 2 mg 2 mg, Oral, Daily, First dose on 02/05/24 at 0900, Until Discontinued, Routine Given 02/05/2024 8:12 AM EST 2 mg bumetanide (Bumex) tablet 4 mg 4 mg, Oral, Daily, First dose on 02/02/24 at 1230, Until Discontinued, Routine Given 02/02/2024 12:28 PM EST 4 mg clopidogrel (Plavix) tablet 75 mg 75 mg, Oral, Daily, First dose on 01/30/24 at 1600, Until Discontinued, Routine Given 02/03/2024 8:19 AM EST 75 mg Given 02/02/2024 8:43 AM EST 75 mg Given 02/01/2024 8:31 AM EST 75 mg dapagliflozin (Farxiga) tablet 10 mg 10 mg, Oral, Daily, First dose on 01/31/24 at 1145, Until Discontinued, RoutineIndications:Left Systolic Heart Failure Given 02/05/2024 8: 12 AM EST 10 mg Given 02/04/2024 9:31 AM EST 10 mg Given 02/03/2024 8:25 AM EST 10 mg dextrose 10 % (D10W) bolus 125 mL 125 mL, Intravenous, Every 15 min PRN, Starting on 01/31/24 at 1121, Until 02/05/24 at 1223, Administer over 15 Minutes, Routine, low blood sugar per Hypoglycemia Prevention and Treatment protocol. gabapentin (Neurontin) capsule 600 mg 600 mg, Oral, Once, 1 dose, On 01/30/24 at 2045, Routine Given 01/30/2024 8:10 PM EST 600 mg glucagon (human recombinant) injection 1 mg 1 mg, Intramuscular, Every 15 min PRN, Starting on 01/31/24 at 1121, Until 02/05/24 at 1223, Routine, low blood sugar per Hypoglycemia Prevention and Treatment protocol glucose (Glutose) 40 % oral gel 15 grams of glucose 15 grams of glucose, Sublingual, Every 15 min PRN, Starting on Wed01/31/24 at 1121, Until 02/05/24 at 1223, Routine, low blood sugar, per Hypoglycemia Prevention and Treatment protocol heparin (porcine) injection 5,000 Units 5,000 Units, Subcutaneous, Every 8 hours scheduled, First dose on 01/30/24 at 1145, Until Discontinued, Routine Given 02/05/2024 6:26 AM EST 5,000 Units Left Upper Abdomen Given 02/04/2024 9:15 PM EST 5,000 Units L eft Upper Arm (Back) Given 02/04/2024 1:47 PM EST 5,000 Units L eft Lower Abdomen hydrALAZINE (Apresoline) tablet 25 mg 25 mg, Oral, Every 8 hours scheduled, First dose on Chelita 02/03/24 at 1000, Until Discontinued, Routine Given 02/05/2024 6:26 AM EST 25 mg Given 02/04/2024 9:16 PM EST 25 mg Given 02/04/2024 1:47 PM EST 25 mg hydrOXYzine pamoate (Vistaril) capsule 50 mg 50 mg, Oral, Every 6 hours PRN, Starting on Wed02/01/24 at 2055, Until 02/05/24 at 1223, Routine, anxiety Given 02/04/2024 9:16 PM EST 50 mg Given 02/04/2024 9:30 AM EST 50 mg Given 02/04/2024 12:39 AM EST 50 mg insulin glargine-yfgn 100 UNIT/ML injection 3 Units 3 Units, Subcutaneous, Nightly, First dose on Chelita 02/03/24 at 2100, Until Discontinued, Routine Given 02/03/2024 9:12 PM EST 3 Units Left Upper Arm (Back ) insulin glargine-yfgn 100 UNIT/ML injection 5 Units 5 Units, Subcutaneous, Nightly, First dose (after last modification) on Wed02/04/24 at 2100, Until Discontinued, Routine Given 02/04/2024 9:16 PM EST 5 Units Left Upper Arm (Back ) insulin lispro (Admelog) 100 units/mL injection - Correction - Standard Dose 0-5 Units, Subcutaneous, 3 times daily with meals, First dose on 01/30/24 at 1900, Until Discontinued, Routine Given 01/31/2024 8:52 AM EST 2 Units Left Lower Abdomen Given 01/30/2024 6:19 PM EST 5 Units Le ft Upper Arm (Back) insulin lispro (Admelog) 100 units/mL injection - Correction - Standard Dose 0-5 Units, Subcutaneous, 3 times daily with meals, First dose on Wed01/31/24 at 1230, Until Discontinued, Routine Given 02/05/2024 8:51 AM EST 1 Units Left Lower Abdomen Given 02/04/2024 1:46 PM EST 3 Units Le ft Lower Abdomen Given 02/04/2024 9:35 AM EST 2 Units Le ft Lower Abdomen insulin lispro (Admelog) injection - Correction - Nighttime Dose 0-3 Units, Subcutaneous, 2 times nightly (2100 & 0300), First dose on Wed01/31/24 at 2100, Until Discontinued, Routine Insulin Lispro (Admelog, HumaLOG) 100 UNIT/ML injection 3 Units 3 Units, Subcutaneous, 3 times daily with meals, First dose on Wed01/31/24 at 1230, Until Discontinued, Routine Given 02/05/2024 8:50 AM EST 3 Units Left Lower Abdomen Given 02/04/2024 5:58 PM EST 3 Units Le ft Lower Abdomen Given 02/04/2024 1:46 PM EST 3 Units Le ft Lower Abdomen Insulin Lispro (Admelog, HumaLOG) 100 UNIT/ML injection 5 Units 5 Units, Subcutaneous, Once, 1 dose, On 01/30/24 at 1900, Routine Given 01/30/2024 6:19 PM EST 5 Units Left Upper Arm (Back ) Insulin Lispro (Admelog, HumaLOG) 100 UNIT/ML injection 5 Units 5 Units, Subcutaneous, Once, 1 dose, On 01/30/24 at 2045, Routine Given 01/30/2024 8:10 PM EST 5 Units Right Upper Arm (Raghav k) ipratropium-albuterol (Duo-Neb) 0.5-2.5 mg/3 mL nebulizer solution 3 mL 3 mL, Nebulization, Every 6 hours PRN, Starting on 01/30/24 at 1503, Until 02/05/24 at 1223, Routine, wheezing Given 02/02/2024 9:29 PM EST 3 mL Given 02/01/2024 10:24 PM EST 3 mL Given 02/01/2024 3:28 PM EST 3 mL isosorbide dinitrate (Isordil) tablet 10 mg 10 mg, Oral, Every 8 hours scheduled, First dose on Chelita 02/03/24 at 1030, Until Discontinued, Routine Given 02/05/2024 6:26 AM EST 10 mg Given 02/04/2024 9:16 PM EST 10 mg Given 02/04/2024 1:47 PM EST 10 mg melatonin tablet 3 mg 3 mg, Oral, Nightly PRN, Starting on 01/30/24 at 1143, Until 02/05/24 at 1223, Routine, sleep Given 02/04/2024 9:15 PM EST 3 mg Given 02/02/2024 8:36 PM EST 3 mg Given 02/01/2024 8:41 PM EST 3 mg metoprolol succinate XL (Toprol-XL) 24 hr tablet 12.5 mg 12.5 mg, Oral, Daily, First dose on Wed02/02/24 at 1230, Until Discontinued, Routine Given 02/03/2024 8:19 AM EST 12.5 mg Given 02/02/2024 12:28 PM EST 12.5 mg metoprolol succinate XL (Toprol-XL) 24 hr tablet 12.5 mg 12.5 mg, Oral, Once, 1 dose, On Chelita 02/03/24 at 1030, Routine Given 02/03/2024 10:09 AM EST 12.5 mg metoprolol succinate XL (Toprol-XL) 24 hr tablet 25 mg 25 mg, Oral, Daily, First dose (after last modification) on Wed02/04/24 at 0900, Until Discontinued, Routine Given 02/05/2024 8:12 AM EST 25 mg Given 02/04/2024 9:32 AM EST 25 mg mineral oil-hydrophilic petrolatum (Aquaphor) ointment 1 Application Topical, As needed, Starting on Wed02/02/24 at 1414, Until 02/05/24 at 1223, Routine, dry skin mometasone-formoterol (Dulera 100) 100-5 MCG/ACT inhaler 2 puff 2 puff, Inhalation, 2 times daily, First dose on Wed02/01/24 at 2100, Until Discontinued, Routine Given 02/05/2024 8:12 AM EST 2 puffs Given 02/04/2024 9:16 PM EST 2 puffs Given 02/03/2024 9:12 PM EST 2 puffs polyethylene glycol (Miralax) packet 17 g 17 g, Oral, Daily, First dose on Wed01/30/24 at 1145, Until Discontinued, Routine Given 01/31/2024 8:52 AM EST 17 g Given 01/30/2024 12:39 PM EST 17 g Povidone-Iodine 5 % swab solution 1 Swab Nasal, Daily, 5 doses, First dose on Wed02/01/24 at 1600, Last dose on Wed02/05/24 at 0900, Routine Given 02/03/2024 8:20 AM EST 1 Swab Given 02/02/2024 8:43 AM EST 1 Swab Given 02/01/2024 5:45 PM EST 1 Swab senna (Senokot) tablet 17.2 mg 17.2 mg (2 tablet), Oral, Nightly, First dose on Wed01/30/24 at 2100, Until Discontinued, Routine Given 01/30/2024 8:10 PM EST 17.2 mg sodium chloride 0.9 % flush 10 mL 10 mL, Intravenous, Every 12 hours, First dose on Wed01/30/24 at 1145, Until Discontinued, Routine Given 02/05/2024 8:13 AM EST 10 mL Given 02/04/2024 10:56 PM EST 10 mL Given 02/04/2024 1:49 PM EST 10 mL sodium chloride 0.9 % flush 10 mL 10 mL, Intravenous, As needed, Starting on Wed01/30/24 at 1142, Until 02/05/24 at 1223, Routine, line care sodium zirconium cyclosilicate (Lokelma) packet 10 g 10 g, Oral, 3 times daily before meals, 3 doses, First dose on Wed01/31/24 at 0830, Last dose on Wed01/31/24 at 1700, Routine Given 01/31/2024 6:28 PM EST 10 g Given 01/31/2024 12:45 PM EST 10 g Given 01/31/2024 8:51 AM EST 10 g tetrahydrozoline 0.05 % ophthalmic solution 1 drop 1 drop, Both Eyes, 3 times daily PRN, Starting on 01/30/24 at 1907, Until 02/05/24 at 1223, Routine, irritation Given 01/31/2024 8:02 PM EST 1 drop Given 01/30/2024 10:44 PM EST 1 drop Tiotropium Kremlin Monohydrate (Spiriva Respimat) 2.5 MCG/ACT inhaler 2 puff 2 puff, Inhalation, Daily, First dose on Wed02/02/24 at 0900, Until Discontinued Given 02/05/2024 8:12 AM EST 2 puffs Given 02/03/2024 8:22 AM EST 2 puffs Given 02/02/2024 8:42 AM EST 2 puffs documented in this encounter Active and Recently Administered Medications Times are shown in EST. Scheduled Medication Order 02/03/2024 02/04/2024 02/05/2024 aspirin chewable tablet 81 mg 81 mg, Oral, Daily, First dose on 01/30/24 at 1600, Until Discontinued, Routine 08 (Given - Provider: Charito Griffin RN) 929 (Given - Provider: Abby Rider, JAME) 811 (Given - Provider: Charlotte Cooper, JAME) atorvastatin (Lipitor) tablet 80 mg 80 mg, Oral, Nightly, First dose (after last modification) on Chelita 02/03/24 at 2100, Until Discontinued, Routine 2108 (Given - Provider: Gurinder Pierre, JAME) 2115 (Given - Provider: Michelle Andrews RN) bumetanide (Bumex) tablet 1 mg (COMPLETED) 1 mg, Oral, Once, 1 dose, On Wed02/04/24 at 1045, STAT 1015 (Given - Provider: Abby Ridre, JAME) bumetanide (Bumex) tablet 2 mg (COMPLETED) 2 mg, Oral, Once, 1 dose, On Chelita 02/03/24 at 1030, Routine 1009 (Given - Provider: Charito Griffin RN) bumetanide (Bumex) tablet 2 mg 2 mg, Oral, Daily, First dose on 02/05/24 at 0900, Until Discontinued, Routine 08 (Given - Provider: Charlotte Cooper RN) clopidogrel (Plavix) tablet 75 mg (CANCELED) 75 mg, Oral, Daily, First dose on Wed01/30/24 at 1600, Until Discontinued, Routine 0819 (Given - Provider: Charito Griffin RN) dapagliflozin (Farxiga) tablet 10 mg 10 mg, Oral, Daily, First dose on Wed01/31/24 at 1145, Until Discontinued, Routine 0825 (Given - Provider: Charito Griffin RN) 0931 (Given - Provider: Abby Rider, RN) 0812 (Given - Provider: Charlotte Cooper RN) heparin (porcine) injection 5,000 Units 5,000 Units, Subcutaneous, Every 8 hours scheduled, First dose on Wed01/30/24 at 1145, Until Discontinued, Routine 0622 (Given - Provider: Lizet Joseph RN)1307 (Not Given - Provider: Charito Griffin RN - Reason: Patient/family refused)2112 (Given - Provider: Gurinder Pierre RN) 06 (Given - Provider: Gurinder Pierre RN)1347 (Given - Provider: Abby Rider, JAME)2114 (Given - Provider: Michelle Andrews, JAME) 0626 (Given - Provider: Michelle Andrews RN) hydrALAZINE (Apresoline) tablet 25 mg 25 mg, Oral, Every 8 hours scheduled, First dose on Wed02/03/24 at 1000, Until Discontinued, Routine 1009 (Given - Provider: Charito Griffin RN)2111 (Given - Provider: Gurinder Pierre RN) 06 (Given - Provider: Gurinder Pierre RN)1347 (Given - Provider: Abby Rider, JAME)2115 (Given - Provider: Michelle Andrews, JAME) 0626 (Given - Provider: Michelle Andrews RN) insulin glargine-yfgn 100 UNIT/ML injection 3 Units (CANCELED) 3 Units, Subcutaneous, Nightly, First dose on Wed02/03/24 at 2100, Until Discontinued, Routine 2111 (Given - Provider: Gurinder Pierre RN) insulin glargine-yfgn 100 UNIT/ML injection 5 Units 5 Units, Subcutaneous, Nightly, First dose (after last modification) on Wed02/04/24 at 2100, Until Discontinued, Routine 2115 (Given - Provider: Michelle Andrews, JAME) insulin lispro (Admelog) 100 units/mL injection - Correction - Standard Dose 0-5 Units, Subcutaneous, 3 times daily with meals, First dose on Wed01/31/24 at 1230, Until Discontinued, Routine 0944 (Given - Provider: Charito Griffin RN)1307 (Given - Provider: Charito Griffin RN)1813 (Given - Provider: Charito Griffin RN) 0935 (Given - Provider: Abby Rider RN - Comment: breakfast late)1346 (Given - Provider: Abby Rider RN - Comment: lunch late)1748 (Not Given - Provider: Abby Rider RN - Reason: Order parameters not met) 0851 (Given - Provider: Charlotte Cooper RN) insulin lispro (Admelog) injection - Correction - Nighttime Dose 0-3 Units, Subcutaneous, 2 times nightly (2099 & 0), First dose on Wed01/31/24 at 2100, Until Discontinued, Routine 0258 (Not Given - Provider: Lizet Joseph RN - Reason: Order parameters not met)210 (Not Given - Provider: Gurinder Pierre RN - Reason: Order parameters not met) 0330 (Not Given - Provider: Gurinder Pierre RN - Reason: Order parameters not met)2115 (Not Given - Provider: Michelle Andrews RN - Reason: Order parameters not met) 020 (Not Given - Provider: Michelle Andrews RN - Reason: Order parameters not met) Insulin Lispro (Admelog, HumaLOG) 100 UNIT/ML injection 3 Units 3 Units, Subcutaneous, 3 times daily with meals, First dose on Wed01/31/24 at 1230, Until Discontinued, Routine 0944 (Given - Provider: Charito Griffin RN)1307 (Given - Provider: Charito Griffin RN)1813 (Given - Provider: Charito Griffin RN) 0935 (Given - Provider: Abby Rider RN - Comment: breakfast late)1346 (Given - Provider: Abby Rider RN - Comment: lunch late)1758 (Given - Provider: Abby Rider, JAME) 0850 (Given - Provider: Charlotte Cooper, JAME) isosorbide dinitrate (Isordil) tablet 10 mg 10 mg, Oral, Every 8 hours scheduled, First dose on Wed02/03/24 at 1030, Until Discontinued, Routine 1009 (Given - Provider: Charito Griffin RN)2109 (Given - Provider: Gurinder Pierre, JAME) 06 (Given - Provider: Gurinder Pierre, JAME)134 (Given - Provider: Abby Rider, JAME)2115 (Given - Provider: Michelle Andrews, RN) 06 (Given - Provider: Michelle Andrews, RN) metoprolol succinate XL (Toprol-XL) 24 hr tablet 12.5 mg (CANCELED) 12.5 mg, Oral, Daily, First dose on Wed02/02/24 at 1230, Until Discontinued, Routine 0819 (Given - Provider: Charito Griffin RN) metoprolol succinate XL (Toprol-XL) 24 hr tablet 12.5 mg (COMPLETED) 12.5 mg, Oral, Once, 1 dose, On Wed02/03/24 at 1030, Routine 1009 (Given - Provider: Charito Griffin RN) metoprolol succinate XL (Toprol-XL) 24 hr tablet 25 mg 25 mg, Oral, Daily, First dose (after last modification) on Wed02/04/24 at 0900, Until Discontinued, Routine 0932 (Given - Provider: Abby Rider, JAME) 0812 (Given - Provider: Charlotte Cooper, JAME) mometasone-formoterol (Dulera 100) 100-5 MCG/ACT inhaler 2 puff 2 puff, Inhalation, 2 times daily, First dose on Wed02/01/24 at 2100, Until Discontinued, Routine 0821 (Given - Provider: Charito Griffin RN)2111 (Given - Provider: Gurinder Pierre RN) 0931 (Not Given - Provider: Abby Rider, JAME - Reason: Patient/family refused)2115 (Given - Provider: Michelle Andrews, RN) 08 (Given - Provider: Charlotte Cooper, JAME) polyethylene glycol (Miralax) packet 17 g 17 g, Oral, Daily, First dose on 01/30/24 at 1145, Until Discontinued, Routine 0820 (Not Given - Provider: Charito Griffin RN - Reason: Patient/family refused) 0932 (Not Given - Provider: Abby Rider RN - Reason: Patient/family refused) 0812 (Not Given - Provider: Charlotte Cooper, JAME - Reason: Patient/family refused) Povidone-Iodine 5 % swab solution 1 Swab Nasal, Daily, 5 doses, First dose on Wed02/01/24 at 1600, Last dose on Wed02/05/24 at 0900, Routine 0820 (Given - Provider: Charito Griffin RN) 0932 (Not Given - Provider: Abby Rider RN - Reason: Patient/family refused) 0813 (Not Given - Provider: Charlotte Cooper RN - Reason: Patient/family refused) senna (Senokot) tablet 17.2 mg 17.2 mg (2 tablet), Oral, Nightly, First dose on 01/30/24 at 2100, Until Discontinued, Routine 211 (Not Given - Provider: Gurinder Pierre RN - Reason: Patient/family refused) 211 (Not Given - Provider: Michelle Andrews RN - Reason: Patient/family refused) sodium chloride 0.9 % flush 10 mL(Linked Group 1) 10 mL, Intravenous, Every 12 hours, First dose on 01/30/24 at 1145, Until Discontinued, Routine 1106 (Canceled Entry - Provider: Charito Griffin RN - Comment: flushed during assessment)2344 (Given - Provider: Gurinder Pierre RN) 1349 (Given - Provider: Abby Rider, JAME)2256 (Given - Provider: Michelle Andrews, JAME) 0813 (Given - Provider: Charlotte Cooper, JAME) Tiotropium Kremlin Monohydrate (Spiriva Respimat) 2.5 MCG/ACT inhaler 2 puff 2 puff, Inhalation, Daily, First dose on Wed02/02/24 at 0900, Until Discontinued 0822 (Given - Provider: Charito Griffin RN) 0931 (Not Given - Provider: Abby Rider RN - Reason: Patient/family refused) 0812 (Given - Provider: Charlotte Cooper, JAME) PRN Medication Order 02/03/2024 02/04/2024 02/05/2024 acetaminophen (Tylenol) tablet 650 mg 650 mg, Oral, Every 8 hours PRN, Starting on 01/30/24 at 1143, Until 02/05/24 at 1223, Routine, mild pain dextrose 10 % (D10W) bolus 125 mL(Linked Group 2) 125 mL, Intravenous, Every 15 min PRN, Starting on 01/31/24 at 1121, Until 02/05/24 at 1223, Administer over 15 Minutes, Routine, low blood sugar per Hypoglycemia Prevention and Treatment protocol. glucagon (human recombinant) injection 1 mg(Linked Group 2) 1 mg, Intramuscular, Every 15 min PRN, Starting on 01/31/24 at 1121, Until 02/05/24 at 1223, Routine, low blood sugar per Hypoglycemia Prevention and Treatment protocol glucose (Glutose) 40 % oral gel 15 grams of glucose(Linked Group 2) 15 grams of glucose, Sublingual, Every 15 min PRN, Starting on 01/31/24 at 1121, Until 02/05/24 at 1223, Routine, low blood sugar, per Hypoglycemia Prevention and Treatment protocol hydrOXYzine pamoate (Vistaril) capsule 50 mg 50 mg, Oral, Every 6 hours PRN, Starting on 02/01/24 at 2055, Until 02/05/24 at 1223, Routine, anxiety 0425 (Given - Provider: Lizet Joseph, JAME) 0039 (Given - Provider: Gurinder Pierre, JAME)0930 (Given - Provider: Abby Rider, RN)2116 (Given - Provider: Michelle Andrews, JAME) ipratropium-albuterol (Duo-Neb) 0.5-2.5 mg/3 mL nebulizer solution 3 mL 3 mL, Nebulization, Every 6 hours PRN, Starting on 01/30/24 at 1503, Until 02/05/24 at 1223, Routine, wheezing melatonin tablet 3 mg 3 mg, Oral, Nightly PRN, Starting on 01/30/24 at 1143, Until 02/05/24 at 1223, Routine, sleep 2115 (Given - Provider: Michelle Andrews RN) mineral oil-hydrophilic petrolatum (Aquaphor) ointment 1 Application Topical, As needed, Starting on Wed02/02/24 at 1414, Until 02/05/24 at 1223, Routine, dry skin sodium chloride 0.9 % flush 10 mL(Linked Group 1) 10 mL, Intravenous, As needed, Starting on 01/30/24 at 1142, Until 02/05/24 at 1223, Routine, line care tetrahydrozoline 0.05 % ophthalmic solution 1 drop 1 drop, Both Eyes, 3 times daily PRN, Starting on 01/30/24 at 1907, Until 02/05/24 at 1223, Routine, irritation Linked Groups Order Group 1: Insert peripheral IV (COMPLETED) Once, On 01/30/24 at 1143, For 1 occurrence And Saline lock IV (COMPLETED) Once, On 01/30/24 at 1143, For 1 occurrence And sodium chloride 0.9 % flush 10 mLJump to med 10 mL, Intravenous, Every 12 hours, First dose on 01/30/24 at 1145, Until Discontinued, Routine And sodium chloride 0.9 % flush 10 mLJump to med 10 mL, Intravenous, As needed, Starting on 01/30/24 at 1142, Until 02/05/24 at 1223, Routine, line care Group 2: glucose (Glutose) 40 % oral gel 15 grams of glucoseJump to med 15 grams of glucose, Sublingual, Every 15 min PRN, Starting on 01/31/24 at 1121, Until 02/05/24 at 1223, Routine, low blood sugar, per Hypoglycemia Prevention and Treatment protocol Or dextrose 10 % (D10W) bolus 125 mLJump to med 125 mL, Intravenous, Every 15 min PRN, Starting on 01/31/24 at 1121, Until 02/05/24 at 1223, Administer over 15 Minutes, Routine, low blood sugar per Hypoglycemia Prevention and Treatment protocol. Or glucagon (human recombinant) injection 1 mgJump to med 1 mg, Intramuscular, Every 15 min PRN, Starting on 01/31/24 at 1121, Until 02/05/24 at 1223, Routine, low blood sugar per Hypoglycemia Prevention and Treatment protocol documented in this encounter Additional Health Concerns [...] documented as of this encounter Care Teams Type Bar And Segment Assembler Relationship Specialty Start Date End Date Pcp, [place] [address] PCP - General Family Medicine 01/30/24 documented as of this encounter
--- OUTSIDE RECORDS SUMMARY | 2024-02-23 18:55 | XMS_ITS | Encounter Summary ---
Author Organization [facility] Address [address] [place] [address] Care Team Providers Care Principal Consulting Engineer Name Role Phone Pcp, No Primary Care Provider Unavailabl e Encounter Details Date Type Department Care Team (Latest Contact Info) Description 01/30/2024 Travel Social History Tobacco Use Types Packs/Day [...] the money to buy more. Never true 12/17/19 24 Within the past 12 months, t he food you bought just didn't last and you didn't have money to get more. Never true 12/17/2023 PRAPARE - Transportation Answer Date Re corded In the past 12 months, has l ack of transportation kept you from medical appointments or from getting medications? No 11/28 In the past 12 months, has l ack of transportation kept you from meetings, work, or from getting things needed for daily living? No 12/17/2023 Housing Stability Vital Sign Answer Raf e Recorded In the last 12 months, was t here a time when you were not able to pay the mortgage or rent on time? No 12/17/2023 In the last 12 months, how many places have you lived? 2 12/17/2023 In the last 12 months, was t here a time when you did not have a steady place to sleep or slept in a residential (including now)? No 12/17/2023 CAGE ASSESSMENT Answer Date Recorded Cage unable [...] first t erin in the morning (EYE-FISH WARDEN) to steady your nerves or to get rid of a hangover? 0 02/05/2023 CAGE Questionnaire Score 0 023 Utilities Answer Date Recorded In the past 12 months has th e electric, gas, oil, or water company threatened to shut off services in your home? No 12/17/2023 Sex and Gender Information Value Date Recorded Sex Assigned at Not on file Legal Sex Male 8:15 PM EDT Gender Identity Not on file Sexual Orientation Not on file documented as of this encounter Plan of Treatment Upcoming Encounters Date Type Department Care Team ([facility] st Contact Info) Description 03/07/2024 1:40 PM EST Office Visit [facility] [place] [address], [address] [place] [address] Naeem Blunt MD [address] [place] [address] documented as of this encounter Visit Diagnoses Not on filedocumented in this encounter Additional Health Concerns Infection Onset Date Last Indicated Resolved Time MRSA Comment:Positive blood culture 03/03/2019 01/30/2024 Assessment Noted Time A Body Mass Index follow-up plan has been documented for the patient 02/05/2024 9:34 AM EST documented as of this encounter Care Teams Principal Consulting Engineer Relationship Specialty Start Date End Date Pcp, [place] [address] PCP - General Family Medicine 01/30/24 documented as of this encounter
--- OUTSIDE RECORDS SUMMARY | 2024-02-23 18:55 | XMS_ITS | Encounter Summary ---
Author Organization [facility] Address [address] [place] [address] Care Team Providers Care Shoe Parts Caser Name Role Phone Erik Hurley MD Primary Care Provider [phone] Encounter Details Date Type Department Care Team (Late st Contact Info) Description 12/28/2023 Telephone [facility] A Inpatient [address] [place] [address] Laura Singleton CV TELE-PROGRESSIVE Social History Tobacco Use Types Packs/Day Years [...] place to sleep or slept in a fci (including now)? No 12/17/2023 CAGE ASSESSMENT Answer [...] drink first t erin in the morning (EYE-SALES ASSOCIATE CASHIER) to steady your nerves or to get [...] Upcoming Encounters Date Type Department Care Team ([facility] Contact Info) Description 03/07/2024 1:40 PM EST Office Visit [facility] [place] [address], [address] [place] [address] Naeem Blunt MD [address] [place] [address] documented as of this encounter Visit Diagnoses Not on filedocumented in this encounter Additional Health Concerns Infection Onset Date Last Indicated Resolved Time MRSA Comment:Positive blood culture 03/03/2019 01/30/2024 Assessment Noted Time A Body Mass Index follow-up plan has been documented for the patient 12/25/2023 10:38 AM EDT documented as of this encounter Care Teams Shoe Parts Caser Relationship Specialty Start Date End Date Erik Hurley MD [address] [place] [address] PCP - General 06/18/23 01/29/24 documented as of this encounter
--- OUTSIDE RECORDS SUMMARY | 2024-02-23 18:56 | XMS_ITS | Encounter Summary ---
Author Organization [facility] Address [address] [place] [address] Care Team Providers Care Coupler Name Role Phone Erik Hurley MD Primary Care Provider [phone] Encounter Details Date Type Department Care Team (Latest Contact Info) Description 12/17/2023 Travel Social History Tobacco Use Types Packs/Day [...] place to sleep or slept in a alf (including now)? No 12/17/2023 CAGE ASSESSMENT Answer [...] drink first t erin in the morning (EYE-FACTORY MANAGER) to steady your nerves or to get [...] Description 03/07/2024 1:40 PM EST Office Visit [facility] [place] [address], [address] [place] [address] Naeem Blunt MD [address] [place] [phone] documented as of this encounter Visit Diagnoses Not on filedocumented in this encounter Additional Health Concerns Infection Onset Date Last Indicated Resolved Time MRSA Comment:Positive blood culture 03/03/2019 01/30/2024 MRSA Escalation Plan Comment:MRSA Escalation Plan is in effect as of 05/10/2023. Patient will require contact precautions for the duration of the hospital admission. 06/16/2023 06/16/2023 12/17/2023 6:08 AM E DT Assessment Noted Time A Body Mass Index follow-up plan has been documented for the patient 12/25/2023 10:38 AM EDT documented as of this encounter Care Teams Coupler Relationship Specialty Start Date End Date Erik Hurley MD [address] [place] [address] PCP - General 06/18/23 01/29/24 documented as of this encounter
--- OUTSIDE RECORDS SUMMARY | 2024-02-23 18:56 | XMS_ITS | Encounter Summary ---
Author Organization [facility] Address [address] [place] [address] Care Team Providers Care Hot Baller Name Role Phone Pcp, No Primary Care Provider Unavailabl e Encounter Details Date Type Department Care Team (Latest Contact Info) Description 06/15/2023 Travel Social History Tobacco Use Types Packs/Day [...] the money to buy more. Never true 06/16/19 24 Within the past 12 months, t he food you bought just didn't last and you didn't have money to get more. Never true 06/16/2023 PRAPARE - Transportation Answer Date Re corded In the past 12 months, has l ack of transportation kept you from medical appointments or from getting medications? No 05/28 In the past 12 months, has l ack of transportation kept you from meetings, work, or from getting things needed for daily living? No 06/16/2023 Housing Stability Vital Sign Answer Raf e Recorded In the last 12 months, was t here a time when you were not able to pay the mortgage or rent on time? No 06/16/2023 In the last 12 months, how many places have you lived? 2 06/16/2023 In the last 12 months, was t here a time when you did not have a steady place to sleep or slept in a chcf (including now)? No 06/16/2023 CAGE ASSESSMENT Answer Date Recorded Cage unable [...] drink first t erin in the morning (EYE-BUILDING SERVICES SUPERVISOR) to steady your nerves or to get rid of a hangover? 0 02/05/2023 CAGE Questionnaire Score 0 023 Utilities Answer Date Recorded In the past 12 months has th e electric, gas, oil, or water company threatened to shut off services in your home? No 06/16/2023 Sex and Gender Information Value Date Recorded Sex Assigned at Not on file Legal Sex Male 8:15 PM EDT Gender Identity Not on file Sexual Orientation Not on file documented as of this encounter Plan of Treatment Upcoming Encounters Date Type Department Care Team ([facility] st Contact Info) Description 03/07/2024 1:40 PM EST Office Visit [facility] [place] [address], [address] [place] [address] Naeem Blunt MD [address] [place] [address] documented as of this encounter Visit Diagnoses Not on filedocumented in this encounter Additional Health Concerns Infection Onset Date Last Indicated Resolved Time MRSA Comment:Positive blood culture 03/03/2019 01/30/2024 Respiratory Rule-Out 06/15/2023 06/16/2023 024 6:08 AM EDT Assessment Noted Time A Body Mass Index follow-up plan has been documented for the patient 06/17/2023 2:37 PM EDT documented as of this encounter Care Teams Hot Baller Relationship Specialty Start Date End Date Pcp, [place] [address] PCP - General Family Medicine 06/14/23 06/17/23 documented as of this encounter
--- OUTSIDE RECORDS SUMMARY | 2024-02-23 18:56 | XMS_ITS | Encounter Summary ---
Author Organization [facility] Address [address] [id number] Care Team Providers Care Dive Superintendent Name Role Phone Pcp, No Primary Care Provider Cierra Rutledge LPN Unavailable Erik Plunkett MD Primary Care Provider [phone] Reason for Visit * Reason Onset Date Comments HCN Clinical Concern/Question 06/14/2023 Encounter Details Date Type Department Care Team ([facility] st Contact Info) Description 06/14/2023 Telephone [facility] [place] [address], [address] [place] [address] Harlan Ricketts MD [address] [place] [address] HCN Clinical Concern/Question Social History Tobacco Use Types Packs/Day Years [...] place to sleep or slept in a assisted (including now)? No 06/16/2023 CAGE ASSESSMENT Answer [...] drink first t erin in the morning (EYE-LATHE WINDER) to steady your nerves or to get rid of a hangover? 0 02/05/2023 CAGE Questionnaire Score 0 023 Utilities Answer Date Recorded In the past 12 months has th e [place], gas, oil, or water company threatened to shut off services in your home? No 06/16/2023 Sex and Gender Information Value Date Recorded Sex Assigned at Not on file Legal Sex Male 8:15 PM EDT Gender Identity Not on file Sexual Orientation Not on file documented as of this encounter Miscellaneous Notes * Telephone Encounter - Mayela Pate - 06/14/2023 8:54 AM EDT Clinical Concern/Question Reason for Call: Patient would like to know if Dr. Ricketts could help him get an o2 concentrator for home use. Best contact number: [phone] Optimal time of day to reach caller: ANYTIME Additional comments/information from caller: None Note: Please do not reply to this message. Follow-up communication and further actions as a result of this message need to be communicated with the patient directly, if the patient is not active onMyChart. If the patient is active on MyChart, they will receive notification of the communication/outcome via MyChart. documented in this encounter Plan of Treatment Upcoming Encounters Date Type Department Care Team (Late st Contact Info) Description 03/07/2024 1:40 PM EST Office Visit [facility] [place] [address], [address] [place] [address] Naeem Blunt MD [address] [place] [address] documented as of this encounter Visit Diagnoses Not on filedocumented in this encounter Additional Health Concerns Infection Onset Date Last Indicated Resolved Time MRSA Comment:Positive blood culture 03/03/2019 01/30/2024 Respiratory Rule-Out 06/15/2023 06/16/2023 024 6:08 AM EDT MRSA Escalation Plan Comment:MRSA Escalation Plan is in effect as of 05/10/2023. Patient will require contact precautions for the duration of the hospital admission. 06/16/2023 06/16/2023 12/17/2023 6:08 AM E DT Assessment Noted Time A Body Mass Index follow-up plan has been documented for the patient 03/25/2023 11:58 AM EST documented as of this encounter Care Teams Dive Superintendent Relationship Specialty Start Date End Date Pcp, No [address] [place] [address] PCP - General Family Medicine 06/14/23 06/17/23 Erik Hurley MD [address] [place] [address] PCP - General 06/18/23 01/29/24 Cierra Evans LPN [employer]UE[employer] [place] [address] TCM Nurse 06/18/23 06/18/23 documented as of this encounter
--- OUTSIDE RECORDS SUMMARY | 2024-02-23 18:56 | XMS_ITS | Encounter Summary ---
Author Organization [facility] Address [address] [place] [address] Care Team Providers Care Rn Imaging Name Role Phone Pcp, No Primary Care Provider Unavailabl e Encounter Details Date Type Department Care Team ([facility] st Contact Info) Description 06/15/2023 Telephone [facility] [place] [address], [address] [place] [address] Jerel Robertson, DO [address] [place] [address] Social History Tobacco Use Types Packs/Day Years [...] money to buy more. Never true 06/16/19 Within the past 12 months, t he [...] slept in a m[facility]p (including now)? No 06/16/2023 CAGE ASSESSMENT Answer [...] drink first t erin in the morning (EYE-COORDINATE MEASURING MACHINE PROGRAMMER) to steady your nerves or to get [...] encounter Miscellaneous Notes * Telephone Encounter - Enedelia Medley, RN - 06/15/2023 9:20 AM EDT Called patient and left VM regarding home oxygen. Advised him to reach out to PCP since he has not established care in the clinic with a college of education dean. Enedelia RN * Telephone Encounter - Leah Hall - 06/15/2023 8:23 AM EDT Patient Phone Message Reason for Call: Patient calling to request call back from provider, patient is trying to see if he can get help with ordering a oxygen machine for his house Best contact number and optimal time of day to reach caller: [phone] Note: Please do not reply to this message. Follow-up communication and further actions as a result of this message need to be communicated with the patient directly, if the patient is not active onMyChart. If the patient is active on MyChart, they will receive notification of the communication/outcome via [employer]. documented in this encounter Plan of Treatment Upcoming Encounters Date Type Department Care Team (Late st Contact Info) Description 03/07/2024 1:40 PM EST Office Visit [facility] [place] [address], [address] [place] [address] Naeem Blunt MD [address] [place] [id number] documented as of this encounter Visit Diagnoses Not on filedocumented in this encounter Additional Health Concerns Infection Onset Date Last Indicated Resolved Time MRSA Comment:Positive blood culture 03/03/2019 01/30/2024 Assessment Noted Time A Body Mass Index follow-up plan has been documented for the patient 06/17/2023 2:37 PM EDT documented as of this encounter Care Teams Rn Imaging Relationship Specialty Start Date End Date Pcp, No [address] [place] [address] PCP - General Family Medicine 06/14/23 06/17/23 documented as of this encounter
--- OUTSIDE RECORDS SUMMARY | 2024-02-23 18:56 | XMS_ITS | Encounter Summary ---
Author Organization [facility] Address [address] [place] [address] Care Team Providers Care Plasterer Stucco Name Role Phone Pcp, No Primary Care Provider Unavailabl e Reason for Referral * Consultation (Routine) - Authorized Specialty Diagnoses / Procedures Referred By Neno t Referred To Contact Nephrology Diagnoses Chronic kidney disease, unspecified CKD stage John Mattson MD [address] [place] [address] Phone: tel: fax: [facility] Nephrology, Bone & Mineral Metabolism [address], [address] [place] [address] Phone: tel: fax: Referral ID Status Reason Start Date Expiration Date Visits Requested Visits Authorized [id number] Authorized Specialty Services Required 06/17/2023 12/16/2024 1 1 Scheduling Instructions CKD * Consultation (Routine) - Authorized Specialty Diagnoses / Procedures Referred By Contac t Referred To Contact Primary Care Diagnoses Acute on chronic congestive heart failure, unspecified heart failure type (CMS/HCC) John Mattson MD [address] [place] [address] Phone: tel: fax: [address] [address] Phone: tel: Referral ID Status Reason Start Date Expiration Date Visits Requested Visits Authorized [id number] Authorized Specialty Services Required 06/17/2023 12/16/2024 1 1 * Home Health (Routine) - Authorized Specialty Diagnoses / Procedures Referred By Neno noel Referred To Contact Home Health Services Diagnoses Shortness of breath John Mattson MD [address] [place] [address] Phone: tel: fax: Referral ID Status Reason Start Date Expiration Date Visits Requested Visits Authorized [id number] Authorized Specialty Services Required 06/17/2023 12/16/2024 999 999 Reason for Visit * Reason Comments Shortness of Breath * Auth/Cert (Routine) Specialty Diagnoses / Procedures Referred By Neno noel Referred To Contact Diagnoses Shortness of breath John Mattson MD [address] [place] [address] Phone: tel: fax: [facility] [address] [place] [phone] Phone: tel: Referral ID Status Reason Start Date Expiration Date Visits Re quested Visits Authorized [id number] 1 1 Encounter Details Date Type Department Care Team (Latest Contact Info) Description 06/15/2023 1:04 PM EDT - 06/17/2023 3:15 PM EDT Hospital Encounter [facility] In[facility] [address] [place] [address] Nell Baxter DO [address] [place] [address] Regina Arrington MD [address] [place] [address] John Mattson MD [address] [place] [address] Shortness of breath (Primary Dx); Acute on chronic congestive heart failure, unspecified heart failure type (CMS/HCC); Chronic kidney disease, unspecified CKD stage Discharge Disposition: Home-Health Care [facility] [place] Social History Tobacco Use Types Packs/Day Years [...] place to sleep or slept in a fpc (including now)? No 06/16/2023 CAGE ASSESSMENT Answer [...] drink first t erin in the morning (E[employer]-MEMBER SERVICES COORDINATOR) to steady your nerves or to get rid of a hangover? 0 02/05/2023 CAGE Questionnaire Score 0 023 Utilities Answer Date Recorded In the past 12 months has e [employer], gas, oil, or water [employer] threatened to shut off services in your home? No 06/16/2023 Sex and Gender Information Value Date Recorded Sex Assigned at Not on file Legal Sex Male 8:15 PM EDT Gender Identity Not on file Sexual Orientation Not on file documented as of this encounter Last Filed Vital Signs Vital Sign Reading Time Taken Comments Blood Pressure 121/67 06/17/2023 11:30 AM EDT Pulse 60 06/17/2023 11:30 AM EDT Temperature 36.5 ??C (97.7 ??F) 06/17/2023 11:30 AM E DT Respiratory Rate 15 06/17/2023 11:30 AM EDT Oxygen Saturation 97% 06/17/2023 11:30 AM EDT Inhaled Oxygen Concentration - - Weight 104 kg (228 lb 2.8 oz) 06/16/2023 6:30 AM EDT Height - - Body Mass Index 30.95 03/23/2023 7:02 PM EST documented in this encounter Discharge Instructions * Attachments The following attachments cannot be sent through Care Everywhere. * Dapagliflozin Oral Tablet (Monegasque) * Mometasone/Formoterol Metered Dose Inhaler (Monegasque) * Insulin Glargine Injectable Solution (Monegasque) documented in this encounter Medications at Time of Discharge nitroglycerin (Nitrostat) 0.[address] 1 tablet (0.4 mg) under the tongue every 5 (five) minutes if needed for chest pain. aspirin 81 MG chewable tablet Chew 1 tablet (81 mg) 1 (one) time each day. 30 tablet 11 02/12/2023 4 atorvastatin (Lipitor) 80 MG tablet Take 1 tablet (80 mg) by mouth 1 (one) time each day. 30 tablet 11 02/12/2023 4 carvedilol (Coreg) 12.5 MG tablet Take 1 tablet (12.5 mg) by mouth 2 (two) times a day. 60 tablet 11 02/12/2023 4 clopidogrel (Plavix) 75 MG tablet Take 1 tablet (75 mg) by mouth 1 (one) time each day. 4 dapagliflozin (Farxiga) 10 MG tabletIndication s:Left Systolic Heart Failure Take 1 tablet (10 mg) by mouth 1 (one) time each day. 30 tablet 3 06/17/2023 4 entecavir (Baraclude) 0.5 MG tablet Take 1 tablet (0.5 mg) by mouth every other day. 15 tablet 2 03/25/2023 4 furosemide (Lasix) 40 MG tablet Take 1 tablet (40 mg) by mouth daily. Take an additional 1 tablet (40 mg) by mouth once daily as needed for weight gain of 3 pounds in 1 day or 5 pounds in 1 week. 60 tablet 1 06/17/2023 4 gabapentin (Neurontin) 600 MG tablet Take 1 tablet (600 mg) by mouth 3 (three) times a day. 4 hydrALAZINE (Apresoline) 100 MG tablet Take 1 tablet (100 mg) by mouth 3 (three) times a day. 04/12/2023 4 hydrALAZINE (Apresoline) 50 MG tablet Take 1 tablet (50 mg) by mouth 3 (three) times a day. 90 tablet 11 02/12/2023 4 insulin aspart (NovoLOG FlexPen ReliOn) 100 UNIT/ML injection pen Inject 6 Units under the skin 3 (three) times a day. 15 mL 1 03/25/2023 4 insulin detemir (Levemir) 100 UNIT/ML injection pen Inject 7-8 Units under the skin every night. 06/12/2020 4 insulin glargine (Lantus) 100 UNIT/ML injection vial Inject 0.13 mL (13 Units) under the skin every night. 10 mL 06/17/2023 4 isosorbide dinitrate (Isordil) 40 MG tablet Take 1 tablet (40 mg) by mouth 3 (three) times a day. 90 tablet 11 02/12/2023 4 mometasone-formo terol (Dulera 100) 100-5 MCG/ACT inhaler Inhale 2 puffs 2 (two) times a day. Rinse mouth with water after use to reduce aftertaste and incidence of candidiasis. Do not swallow. 13 g 2 06/17/2023 4 Umeclidinium [place] (Incruse Ellipta) 62.5 MCG/ACT aerosol powder Inhale 1 Inhalation 1 (one) time each day. 7 each 1 02/12/2023 4 documented as of this encounter Miscellaneous Notes * Discharge Summary - Zia Gomez MD - 06/17/2023 2:19 PM EDT Hospitalization Admit Date/Time: 06/15/2023 1:04 PM Admitting Attending: John Mattson Discharge Date: 06/17/2023 Discharge Attending Physician: John Mattson MD PCP name and Address: Pcp, Ebony [address] [place] [address] Referring provider name and address: No referring provider defined for this encounter. Chief Concern, Brief History of Present Illness, and Hospital Course Robert Hurley is a 58 y.o. male w/HFrEF, suspected COPD, CAMACHO cirrhosis, DM2, CKD4, prior L AKA, and suspected difficulty accessing health care resources who initially presented to the [facility] on 06/14 with chief complaint of acute dyspnea. He was admitted for similar complaints in 02/2023 and discharged after management of acute HF exacerbation, with additional admission in 01/2023. #Acute on chronic hypoxic respiratory failure -Pt reports history of COPD (undiagnosed formally) as well as HF (on home diuresis) -Uses home O2 purchased online -Reports he has been using his medications since his recent discharge on in 03/20 -Had increased O2 requirements on initial evaluation with worsening subjective SoB -He improved with duoneb and furosemide (40 IV) -Denied increased cough/sputum production -Lack of increased cough/sputum - less likely to be COPD -Rapid improvement, more likely to be COPD exacerbation -Further management was completed with PO diuresis (at home dose) and supportive care -Pt reported some subjective shortness of breath on day of discharge but he was unwilling to go to rehab for further care Discharge plan -Labs after discharge -Follow-up with high risk discharge clinic #Chronic conditions and social determinants of health -Pt lives at home, alone without significant support -Reports regular use of all medication, but some concerns based on fill history History of type 2 dabetse on insulin -CKD w/o renal follow-up Discharge plan -Refer to nephrology outpt -Continue home meds We made referral to high risk discharge clinic, however, pt reported he had limited ability to come to [place]. His PCP is in [facility], but that office is closed until 06/16, [facility] with office of Erik Hurley MD for follow-up. Surgeries and Procedures Medication List .. aspirin 81 MG chewable tablet Chew 1 tablet (81 mg) 1 (one) time each day. atorvastatin 80 MG tablet Commonly known as: Lipitor Take 1 tablet (80 mg) by mouth 1 (one) time each day. carvedilol 12.5 MG tablet Commonly known as: Coreg Take 1 tablet (12.5 mg) by mouth 2 (two) times a day. clopidogrel 75 MG tablet Commonly known as: Plavix Take 1 tablet (75 mg) by mouth 1 (one) time each day. dapagliflozin 10 MG tablet Commonly known as: Farxiga Take 1 tablet (10 mg) by mouth 1 (one) time each day. entecavir 0.5 MG tablet Commonly known as: Baraclude Take 1 tablet (0.5 mg) by mouth every other day. furosemide 40 MG tablet Commonly known as: Lasix Take 1 tablet (40 mg) by mouth daily. Take an additional 1 tablet (40 mg) by mouth once daily as needed for weight gain of 3 pounds in 1 day or 5 pounds in 1 week. gabapentin 600 MG tablet Commonly known as: Neurontin Take 1 tablet (600 mg) by mouth 3 (three) times a day. hydrALAZINE 50 MG tablet Commonly known as: Apresoline Take 1 tablet (50 mg) by mouth 3 (three) times a day. Incruse Ellipta 62.5 MCG/ACT aerosol powder Generic drug: Umeclidinium [place] Inhale 1 Inhalation 1 (one) time each day. insulin glargine 100 UNIT/ML injection vial Commonly known as: Lantus Inject 0.13 mL (13 Units) under the skin every night. isosorbide dinitrate 40 MG tablet Commonly known as: Isordil Take 1 tablet (40 mg) by mouth 3 (three) times a day. mometasone-formoterol 100-5 MCG/ACT inhaler Commonly known as: Dulera 100 Inhale 2 puffs 2 (two) times a day. Rinse mouth with water after use to reduce aftertaste and incidence of candidiasis. Do not swallow. nitroglycerin 0.4 MG SL tablet Commonly known as: Nitrostat Place 1 tablet (0.4 mg) under the tongue every 5 (five) minutes if needed for chest pain. NovoLOG FlexPen ReliOn 100 UNIT/ML injection pen Generic drug: insulin aspart Inject 6 Units under the skin 3 (three) times a day. Where to Get Your Medications These medications were sent to [facility] - [place], [place] - [address] [facility] [id number] dapagliflozin 10 MG tablet furosemide 40 MG tablet insulin glargine 100 UNIT/ML injection vial mometasone-formoterol 100-5 MCG/ACT inhaler Discharge Diagnosis Medical Problems Active and Resolved Hospital Problems Hospital * (Principal) Shortness of breath Post Discharge Instructions Please check labs on pt to evaluate how he is doing with new medications. We would like RFP, Mag, and BNP. Results should be Cced to Dr. Ricketts at Cardiology. Outpatient Follow-Up Future Appointments Date Time Provider Department [place] 06/25/2023 10:20 AM Marco Antonio Heath MD [facility] 10/01/2023 11:00 AM Harlan Ricketts MD [facility] Test Results Pending At Discharge Pending Labs Order Current Status Multi Drug Resistance Test In process Pertinent Physical Exam At Time of Discharge Physical Exam Constitutional: General: He is not in acute distress. Appearance: He is ill-appearing. HENT: Head: Normocephalic and atraumatic. Cardiovascular: Rate and Rhythm: Normal rate. Pulses: Normal pulses. Pulmonary: Effort: Pulmonary effort is normal. No respiratory distress. Breath sounds: No wheezing. Abdominal: General: There is no distension. Palpations: Abdomen is soft. Skin: General: Skin is warm and dry. Neurological: Mental Status: He is alert. Comments: Able to ambulate with prosthetics w/o difficulty Psychiatric: Behavior: Behavior normal. Thought Content: Thought content normal. Discharge Disposition/Condition Disposition: Home Condition: Stable (s/sx potential problems absent or manageable) I spent >30 minutes of patient care and instruction time in preparation for this discharge. Cosigned by John Mattson MD at 06/18/2023 12:08 PM EDT Associated attestation - John Mattson MD - 06/18/2023 12:08 PM EDT I saw and evaluated the patient with the resident/fellow. I discussed the case with the resident/fellow and agree with the findings and plan as documented. I spent < 30 minutes of patient care and instruction time in preparation for this discharge. * Hospital Course - Zia Gomez MD - 06/17/2023 2:05 PM EDT Robert Hurley is a 58 y.o. male w/HFrEF, suspected COPD, CAMACHO cirrhosis, DM2, CKD4, prior L AKA, and suspected difficulty accessing health care resources who initially presented to the [facility] on 06/14 with chief complaint of acute dyspnea. He was admitted for similar complaints in 02/2023 and discharged after management of acute HF exacerbation, with additional admission in 01/2023. #Acute on chronic hypoxic respiratory failure -Pt reports history of COPD (undiagnosed formally) as well as HF (on home diuresis) -Uses home O2 purchased online -Reports he has been using his medications since his recent discharge on in 03/20 -Had increased O2 requirements on initial evaluation with worsening subjective SoB -He improved with duoneb and furosemide (40 IV) -Denied increased cough/sputum production -Lack of increased cough/sputum - less likely to be COPD -Rapid improvement, more likely to be COPD exacerbation -Further management was completed with PO diuresis (at home dose) and supportive care -Pt reported some subjective shortness of breath on day of discharge but he was unwilling to go to rehab for further care Discharge plan -Labs after discharge -Follow-up with high risk discharge clinic #Chronic conditions and social determinants of health -Pt lives at home, alone without significant support -Reports regular use of all medication, but some concerns based on fill history History of type 2 dabetse on insulin -CKD w/o renal follow-up Discharge plan -Refer to nephrology outpt -Continue home meds We made referral to high risk discharge clinic, however, pt reported he had limited ability to come to [place]. His PCP is in [facility], but that office is closed until 06/16, [facility] will [facility]up with office of Erik Hurley MD for follow-up. * Progress Notes - Cameron Cabrera - 06/17/2023 1:10 PM EDT Case Management Discharge Note Robert Hurley 58 y.o. male CSN: [id number] Admission: 06/15/2023 1:04 PM Primary Problem: Shortness of breath Primary Rod Cup Filler: Primary Caregiver: Self Assistance Available at Discharge: Current Outpatient/Agency/Support Group: OT,PT,LATHE SETUP OPERATOR, homecare agency Availability of Care Givers (#Hours): 1-4 hours [facility] [place] ( ) Housing Circumstances-Z Codes: Housing Circumstances (select all that apply): Low Income (101-300% Federal Poverty Guidlines) - Z596 Patient Referred to Financial or Community Resources: Discharge Facility/Level of Care Needs: Discharge Facility/Level of Care Needs: 1-Home or Self Care Patient's Choice of Community Agency(s): Patient/Family Anticipated Services at Transition: Patient/Family Anticipated Services at Transition: home health care DME/Equipment Needed after Discharge: Equipment Currently Used at Home: cane, straight Readmission Within the Last 30 Days: Readmission Within the Last 30 Days: no previous admission in last 30 days Medicare Documentation: Follow-up: [facility] Follow up today PT/OT [facility] Discharge Transportation: Transportation Anticipated: other (see comments) (medicaid transport) Transportation Home at Discharge: (Medicaid transport) Follow Up Transport: Transportation Needed to Follow up Appoinments: Family/Friend will Provide, Other(Comment) (medicaid transport) Additional Comments: Pt declined subacute rehab. HH PT/OT and SN to be provided by [facility] (his current HH agency) New referral sent Pt to be transported home by Medicaid transport from the Discharge Lounge. Cameron Cabrera * Progress Notes - Cathy Osullivan RN - 06/17/2023 9:02 AM EDT Case Management Adult Progress Note Robert Hurley 58 y.o. male CSN: [id number] Admission: 06/15/2023 1:04 PM Primary Problem: Shortness of breath Cm sent order and referral for patient current hh agency. Cathy Osullivan RN * Care Plan - Juliette Ochoa - 06/16/2023 9:07 PM EDT Problem: Adult Inpatient Plan of Care Goal: Optimal Comfort and Wellbeing Outcome: Ongoing, Progressing Goal: Readiness for Transition of Care Outcome: Ongoing, Progressing * Progress Notes - Zia Gomez MD - 06/16/2023 12:45 PM EDT Images from the original note were not included. INPATIENT CARDIOLOGY ([facility]3) DAILY PROGRESS NOTE SUBJECTIVE Overview: Robert Hurley is a 58 y.o. male w/HFrEF, suspected COPD, CAMACHO cirrhosis, DM2, CKD4, prior L AKA who initially presented to the [facility] on 06/14 with chief complaint of acute dyspnea. Last 24 hours: 58 y/o with PMH of HRmrEF, COPD, CAMACHO, DM2, CKD4 and L AKA with suspected difficulty accessing health care resources. He developed acute onset dyspnea in the AM prior to presentation, with chronic cough of white sputum (unchanged). He has been w/o maint inhaler for ~3 weeks. Some utilization of home O2 via O2 concentrator he purchased online Admitted in 02/2023 for CHF exacerbation, was unable to attend clinic appointment with cards since this discharge. Talked to him this morning, he reported no acute distress. Reported he had acute on chronic shortness of breath yesterday, including at rest, which prompted his presentation to the ED yesterday and his admission. He reports he has been taking his medications at home, he reports he has enough of his medicines. Ispecifically ask about his furosemide, he reports he has been taking it daily, and he has ~20 pill left. He has not been taking extra doses based on weight gain. Review of Systems Cardiovascular: Negative for chest pain. Respiratory: Cough: stable. Shortness of breath: Improved. Sputum production: stable. Gastrointestinal: Negative for abdominal pain, nausea and vomiting. OBJECTIVE Vitals Visit Vitals BP 120/74 (BP Location: Left arm, Patient Position: Lying) Pulse 75 Temp 36.6 ??C (97.8 ??F) (Oral) Wt 104 kg (228 lb 2.8 oz) SpO2 95% BMI 30.95 kg/m?? Intake/Output Summary (Last 24 hours) at 06/16/2023 1246 Last data filed at 06/16/2023 0900 Gross per 24 hour Intake 480 ml Output 700 ml Net -220 ml Net IO Since Admission: -220 mL [06/16/23 1246] O2 Delivery Method: Nasal cannula MD SUP: 8 cm H20 FiO2 (%): 28 % MD SUP: 8 cm H20 MAP (cm H2O): 10 Physical Exam: Physical Exam Constitutional: General: He is not in acute distress. Appearance: He is ill-appearing. HENT: Head: Normocephalic and atraumatic. Cardiovascular: Rate and Rhythm: Normal rate and regular rhythm. Pulmonary: Effort: No respiratory distress. Breath sounds: No wheezing. Abdominal: General: There is no distension. Palpations: Abdomen is soft. Tenderness: There is no abdominal tenderness. Musculoskeletal: Comments: Significant wounds on R leg Skin: General: Skin is warm and dry. Neurological: Mental Status: He is alert. Comments: Goal directed movement of bilateral upper extremities, Movement of R LE, LLE s/p amputation Psychiatric: Behavior: Behavior normal. Thought Content: Thought content normal. Labs and Imaging Labs in last 18 hours CBC WBC 3.91 Hb 11.0 (L) Plt 208 Hct 34.7 (L) ANC ?? INR ??, PTT ??, Anti-Xa ?? BMP Na 136 Cl 98 BUN 36 (H) Glu 344 (H) K 4.6 Co2 21 (L) Cr 2.52 (H) Ca 9.2 iCa ?? Mg 2.2, Phos 4.8 (H) Lactate ?? LFT AST ?? AlkPhos ?? T Prot ?? ALK ?? Bili ?? Alb ?? D.Bili ?? Echo (02/10/2023) EDD: The LVEF is visually estimated at 40 - 45%. There is global hypokinesis of the left ventricle. ASSESSMENT/PLAN Robert Hurley is a 58 y.o. male w/HFrEF, suspected COPD, CAMACHO cirrhosis, DM2, CKD4, prior L AKA who initially presented to the [facility] on 06/14 with chief complaint of acute dyspnea. #Acute on chronic hypoxic respiratory failure -Pt reports history of COPD (undiagnosed formally) as well as HF (on home diuresis) -Uses home O2 purchased online -Reports he has been using his medications since his recent discharge on in 03/20 -Had increased O2 requirements on initial evaluation with woresning -Improved with duonebs and with furosemide -Reports no increase cough or sputum production -Lack of increased cough/sputum - less likely to be COPD -Rapid improvement, more likely to be COPD exacerbation Plan -Wean O2 as tolerated -PRN duo neb -Continue diuresis, 40 PO (daily home does) -Supportive care -Restart home meds as able #Chronic conditions and social determinants of health -Pt lives at home, alone without significant support -Reports regular use of all medication, but some concerns based on fill history History of type 2 dabetse on insulin -CKD w/o renal follow-up Plan -Modified insulin reg while admitted F: PO E: PRN N: PO DVT ppx: Heparin Code Status: Full Dispo: PT recs subacute Please note that all recommendations should be considered preliminary until this note is cosigned by the attending physician. Patient was seen and plan discussed with Dr. Mattson. Zia Gomez MD PGY-1, Internal Medicine Cosigned by John Mattson MD at 06/16/2023 4:36 PM EDT Associated attestation - John Mattson MD - 06/16/2023 4:36 PM EDT Signature Only * Progress Notes - Wei Arshad RN - 06/16/2023 12:23 PM EDT Images from the original note were not included. Wound Care Consult Visit Date: 06/16/2023 Patient Name: Robert Hurley Date of : 1965 Admit Date: 06/15/2023 Reason for Consult: IP Wound Orders (From admission, onward) Start Ordered 06/16/23313 Wound ostomy eval and treat Once Comments: See above Question Answer Comment Reason for consult: Other Comment: RLE scaly with some broken areas 06/16/23314 Wound History: Hx of venous stasis ulcers RLE Wound Assessment: Wound 06/16/23 Pretibial Right (Active) Date First Assessed/Time First Assessed: 06/16/23316 Present on Original Admission: Yes Location:Pretibial Wound Location Orientation: Right Assessments 06/16/2023 10:57 AM Wound Image Wound Assessment Dry;Intact;[place];Red (blanchable) Margins Well-defined edges Josefina-Wound Assessment Dry Wound Length (cm) 10 cm Wound Width (cm) 3 cm Wound Surface Area (cm^2) 30 cm^2 Drainage Amount None Dressing Status Open to air No associated orders. Wound Team Summary Assessment: pt seen and assessed pt with known Lt BKA, and RLE venous stasis ulcers HX. RLE with dry intact red/pink blanchable areas consistent with healed wounds, surrounding dryflaking skin. Recommend aquaphor BID for dry scaly skin. Wound Team Plan: no further follow up needed at this time. If new concerns or issues arise please re-consult. Wei Arshad RNCWOCN 06/16/2023 12:23 PM * Progress Notes - Ann Marie Garcia - 06/16/2023 9:53 AM EDT Hospital visit made. Went over [facility] program. Patient verbalized understanding and agreed to program. Enrolled patient in [facility] Transitional Care program under Transitional Care Model. Transitions will assist with support and education at time of discharge. Hospital assistant track and field coach will follow thr oughout stay. Home assistant track and field coach will see patient within 48 hours of discharge and follow with home visits and telephone contact times 6 weeks. Provided [facility] [facility] with brochure, educational materials, and contact information to patient. * Progress Notes - Cameron Cabrera - 06/16/2023 9:30 AM EDT Case Management Adult Initial Progress Note Robert Hurley 58 y.o. male CSN: [id number] Admission: 06/15/2023 1:04 PM Primary Problem: Shortness of breath Crusher Tender reviewed chart and spoke with patient to complete this Initial Case Management Assessment. PCP: Pcp, No Emergency Contact: Extended Emergency Contact Information Primary Emergency Contact: XaviSaurabh Mobile Relation: Other Preferred language: Monegasque Easement Man needed? No Insurance: Primary Visit Coverage Payer Plan Sponsor Code Group Number Group Name MEDICARE MEDICARE PART A ONLY Primary Visit Coverage Subscriber Subscriber ID Subscriber Name Subscriber SSN Subscriber Address [id number] ROBERT HURLEY JR [id number] [place] [id number] Secondary Visit Coverage Payer Plan Sponsor Code Group Number Group Name MEDICAID-[facility] MEDICAID TRADITIONAL Secondary Visit Coverage Subscriber Subscriber ID Subscriber Name Subscriber SSN Subscriber Address [id number] ROBERT HURLEY [id number] [address] Patient information: Primary Caregiver: Self Support System: Immediate family Daily Living Activities: Functional Status: Independent Living Arrangements: Alone Type of Residence: Private residence, Single Level [address] [address] Current DME: Equipment Currently Used at Home: cane, straight Income Information: Income Source: Disabled Income/Expense Information: Income meets expenses Current Resources Utilized: None Housing Circumstances-Z Codes: Housing Circumstances (select all that apply): Low Income (101-300% Federal Poverty Guidlines) - Z596 Patient Referred to: Anticipated Discharge Date: TBD Patient's Discharge Goal: Home Assistance Available at Discharge: family Discharge Transport: family/lmedicaid transport Follow Up Transport: family/medicaid transport Home Health / Home Infusion / Outpatient Dialysis Services: Uses his own O2 concentrator at night purchased through [employer]. Was current with [facility] for Nursing and Pt. Will need new referral upon discharge. Living Will/Advance Directive/Power of Carpet Cleaner /Guardian: None Additional Comments: Confirmed address: [facility] [place], [place]. Lives alone in a ground floor apartment. States prior to admit he was getting nursing and PT via [facility], uses a cane as needed, hasa LLE prosthetic, and uses 2L O2 at night via an O2 concentrator he bought off [employer]. States he has had a sleep study in [place] and CPAP in the past. No POA/LW/AD established. Has Me dicare Part A + Medicaid. States he is able to obtain meds through Medicaid. Meets [employer]. Uses [facility] pharmacy in [facility]. On Disability. States if son cannot transport he will need transport assist home. No SDOH needs identified. Cameron Cabrera * Progress Notes - LinusAmanda - 06/16/2023 9:02 AM EDT Occupational Therapy Evaluation Patient Name: Robert Hurley Today's Date: 06/16/2023 OT Discharge Recommendations: Subacute rehab Equipment Recommended: Defer to facility History Robert Hurley is 58 y.o. male admitted 06/15/2023 for work-up of Shortness of breath. Problem List Active Hospital Problems Diagnosis Date Noted Shortness of breath Procedures Past 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 Patient has a [...] (N/A). Precautions Medical Precautions: Fall precautions Subjective Pt agreeable to OT assessment. Participants in Care Family/Caregiver Present: No Presentation Oxygen Therapy: None (Room air) Lines and Tubes: Intravenous access, Telemetry Pre-Session: Supine, Head of bed elevated, Lines intact, Chair alarm Post-Session: Sitting in chair, Lines intact, RN notified, Call light in reach, Chair alarm Home Living/Set-up Lives With: Alone (reports he does not have assist available) Home Type: Apartment Home Adaptive Equipment: Quad cane, Rolling walker, Wheelchair-manual Home Layout: Stairs to enter without rails Number of Stairs: 2 Home Living Comments: questionable historian Prior Level of Function Receives Help From: No assist required prior to admission Level of Mobility: Wheelchair/Scooter Mobility [place]: Independent transfers with device History of Falls: Yes (slip and fall) ADL Performance: Independent Patient/Family Goals Statement Pt agreeable to OT POC. Objective Pain No complaints of pain. Delirium Screening Mckinley Agitation Sedation Scale (RASS): Alert and calm Confusion Assessment Method-ICU (CAM-ICU/PCAM-ICU) Feature 3: Altered Level of Consciousness: Negative Cognition Overall Cognitive Status: Impaired Arousal/Alertness: Appropriate responses to stimuli Mood/Behavior: Alert (decreased safety awareness, lacks insight into deficits) Orientation Level: Oriented X4 Single Step Commands: Consistently Multi-Step Commands: Consistently Method of Communication: Verbal Right Upper Extremity Examination RUE ROM Assessment RUE Assessment: Within Functional Limits Manual Muscle Testing - RUE: Within functional limits Sensation Light Touch: Right Upper Extremity: Moderate impairment Left Upper Extremity Examination LUE ROM Assessment LUE Assessment: Within Functional Limits Manual Muscle Testing - LUE: Within functional limits Sensation Light Touch: Left Upper Extremity: Moderate impairment Right Lower Extremity Examination RLE ROM Assessment RLE Assessment: Within Functional Limits Manual Muscle Testing - RLE: Within functional limits Sensation Light Touch: Right Lower Extremity: Moderate impairment Left Lower Extremity Examination LLE ROM Assessment LLE Assessment: Within Functional Limits (left BKA) Manual Muscle Testing: Within functional limits (left BKA) Sensation Light Touch: Left Lower Extremity: Moderate impairment (left BKA) Bed Mobility Bed Mobility Exam: Scooting/Bridging Level of [place]: Contact guard (to scoot to EOB while seated) Physical/Nonphysical Assist: Verbal Cues, Nonverbal cues (demo/gestures) Bed Mobility Exam: Supine to Sit Level of [place]: Contact guard Physical/Nonphysical Assist: Verbal Cues, Nonverbal cues (demo/gestures), HOB elevated Transfers Transfer Exam: Sit to stand Level of [place]: Minimum assist (75% patient's effort) Physical/Nonphysical Assist: Verbal Cues, Nonverbal cues (demo/gestures) Assistive Device: Cane, quad Transfer Exam: Stand to Sit Level of [place]: Minimum assist (75% patient's effort) Physical/Nonphysical Assist: Verbal Cues, Nonverbal cues (demo/gestures) Assistive Device: Cane, quad Functional Mobility Device: Quad cane Apparatus: Chair follow Assistance: Minimum assistance Distance : 15 ft Balance Static Sitting Balance Static Sitting-Level of Assistance: Standby assist Dynamic Sitting Balance Level of Assistance: Contact guard Static Standing Balance Static Standing-Level of Assistance: Minimum assistance Dynamic Standing Balance Dynamic Standing Level of Assistance: Minimum assistance Therapeutic Activity (10 minutes) Pt participated in functional endurance tasks in prep for high level ADLs. Performed functional mobility tasks with min a using quad cane + chair follow for safety. Cues required to promote upright posture and safety. Pt navigated ~15 ft during session. Self-Care Interventions Lower Extremity Dressing Shoe Level of Assistance: Maximum assistance LE Dressing Where Assessed: Edge of bed Standardized Assessments Joon Index Feeding: Independent Bathing: Dependent Grooming: Independent face/hair/teeth/shaving (implements provided) Dressing: Needs help but can do about half unaided Bowels: Occasional accident Bladder: Occassional accident Toilet Use: Needs some help but can do some things alone Transfers (Bed to Chair and Back): Minor help (verbal or physical) Mobility (on Level Surfaces): Immobile or < 50 yards Stairs: Unable Total Score: 45 Assessment Pt limited during assessment by deficits listed below. Currently lives alone and is unable to complete ADLs independently and navigate safely within home. Pt is at high fall risk due to deconditioning. Pt currently most appropriate for subacute rehab services to progress ADLs and mobility tasks. OT Findings: Impaired ADL performance, Impaired IADL performance, Decreased endurance/ventilation/gas exchange, Impaired functional mobility, Impaired balance, Impaired judgment during ADL Evaluation/Treatment Tolerance: Patient limited by fatigue Rehab Potential: Good, to achieve stated therapy goals Eval Complexity Occupational Profile: Review of medical/therapy records and extensive additional review of physical, cognitive, or psychosocial history Performance Deficits: Activities of daily living (ADLs), Instrumental activities of daily living (IADLs) Clinical Decision Making: Moderate Overall Eval complexity: Moderate OT Recommendations Discharge Destination: Subacute rehab Discharge Equipment: Defer to facility Plan Planned OT Interventions ADL retraining, IADL retraining, Balance training, Bed mobility Training, ROM, Strengthening, Transfer training, Functional mobility OT Frequency 2 - 5 times per week OT Duration 2 weeks Goals OT GOAL DETAILS Time Frame OT Goal 1: Pt will complete toilet transfers with SBA. 2 weeks OT Goal 2: Pt will complete toilet hygiene with SBA. 2 weeks OT Goal 3: Pt will complete all LB dressing tasks with SBA. 2 weeks Written by Amanda Barriga on 06/16/23 at 9:19 AM. * Progress Notes - Rosalind Sanchez, PT - 06/16/2023 9:01 AM EDT Physical Therapy Evaluation Patient Name: Robert Hurley Today's Date: 06/16/2023 PT Discharge Recommendations: Subacute rehab Equipment Recommended: Defer to facility History Robert Hurley is 58 y.o. male admitted 06/15/2023 for work-up of Shortness of breath. Problem List Active Hospital Problems Diagnosis Date Noted Shortness of breath Past 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 Patient has a past [...] (N/A). Precautions Medical Precautions: Fall precautions Subjective I get around okay. Pt and RN agreeable to PT services this date. Participants in Care Family/Caregiver Present: No Presentation Oxygen Therapy: None (Room air) Lines and Tubes: Intravenous access, Telemetry Pre-Session: Supine, Head of bed elevated, Lines intact, Chair alarm Post-Session: Sitting in chair, Lines intact, RN notified, Call light in reach, Chair alarm Home Living/Set-up Lives With: Alone (reports he does not have assist available) Home Type: Apartment Home Adaptive Equipment: Quad cane, Rolling walker, Wheelchair-manual Home Layout: Stairs to enter without rails Number of Stairs: 2 Home Living Comments: questionable historian Prior Level of Function Receives Help From: No assist required prior to admission Level of Mobility: Wheelchair/Scooter Mobility [place]: Independent transfers with device History of Falls: Yes (slip and fall) ADL Performance: Independent Patient/Family Goals to return home Objective Pain Pt with no c/o pain this session. Delirium Screening Mckinley Agitation Sedation Scale (RASS): Alert and calm Confusion Assessment Method-ICU (CAM-ICU/PCAM-ICU) Feature 3: Altered Level of Consciousness: Negative Cognition Overall Cognitive Status: Impaired Arousal/Alertness: Appropriate responses to stimuli Mood/Behavior: Alert (decreased safety awareness, lacks insight into deficits) Orientation Level: Oriented X4 Single Step Commands: Consistently Multi-Step Commands: Consistently Method of Communication: Verbal Right Upper Extremity Examination RUE Assessment: Within Functional Limits Manual Muscle Testing - RUE: Within functional limits Sensation Light Touch: Right Upper Extremity: Moderate impairment Left Upper Extremity Examination LUE ROM Assessment LUE Assessment: Within Functional Limits Manual Muscle Testing - LUE Manual Muscle Testing - LUE: Within functional limits Sensation Light Touch: Left Upper Extremity: Moderate impairment Right Lower Extremity Examination RLE ROM Assessment RLE Assessment: Within Functional Limits Manual Muscle Testing - RLE Manual Muscle Testing - RLE: Within functional limits Sensation Light Touch: Right Lower Extremity: Moderate impairment Left Lower Extremity Examination LLE Assessment: Within Functional Limits (left BKA) Manual Muscle Testing: Within functional limits (left BKA) Sensation Light Touch: Left Lower Extremity: Moderate impairment (left BKA) Bed Mobility Bed Mobility Exam: Scooting/Bridging Level of [place]: Contact guard (to scoot to EOB while seated) Physical/Nonphysical Assist: Verbal Cues, Nonverbal cues (demo/gestures) Bed Mobility Exam: Supine to Sit Level of [place]: Contact guard Physical/Nonphysical Assist: Verbal Cues, Nonverbal cues (demo/gestures), HOB elevated Assistive Device: Bed rails Transfers Transfer Exam: Sit to stand Level of [place]: Minimum assist (75% patient's effort) Physical/Nonphysical Assist: Verbal Cues, Nonverbal cues (demo/gestures) Assistive Device: Cane, quad Transfer Exam: Stand to Sit Level of [place]: Minimum assist (75% patient's effort) Physical/Nonphysical Assist: Verbal Cues, Nonverbal cues (demo/gestures) Assistive Device: Cane, quad Balance Static Sitting Balance Static Sitting-Level of Assistance: Standby assist Dynamic Sitting Balance Level of Assistance: Contact guard Static Standing Balance Static Standing-Level of Assistance: Minimum assistance Dynamic Standing Balance Dynamic Standing Level of Assistance: Minimum assistance Gait Training (10 minutes) Device: Quad cane Apparatus: Chair follow Assistance: Minimum assistance Distance: 15 ft Gait Analysis: decreased gait speed, inconsistent foot placement, excessive lateral weight shifting, mild to moderate forward trunk lean, overall unsteady gait Gait Training Interventions: cues provided for posture, foot placement, and safe use of quad cane Pt required cueing for safe navigation of obstacles in room/hallway during ambulation. Further mobility deferred 2/2 fatigue. PT encouraged use of RW this date, however pt declined reporting the quadcane provided more stability. Standardized Assessments Standardized Assessments Standardized Assessments: [facility] 6-Clicks Mobility Assessment [facility] 6-Clicks Mobility Assessment Difficulty patient has turning [...] 3-5 steps with a railing?: A lot [facility] 6-Clicks Mobility Assessment Total : 17 Assessment Pt requires physical assist with transfers/ambulation secondary to decreased strength, balance, motor control, and activity tolerance. VSS. Pt is a fall risk. Will progress mobility as appropriate. Pt would continue to benefit from skilled PT services to decrease fall risk and promote independence with functional mobility, in order to maximize potential level of function. Impairments: Decreased endurance, ventilation, and/or gas exchange, Impaired gait dynamics/performance, Impaired functional mobility/transfers, Impaired balance, Impaired cognition/safety awareness, Impaired motor cordination/control Activity Limitations: Inability to ambulate independently, Inability to ambulate community distances, Inability to ambulate household distances, Inability to transfer independently, Inability to complete ADLs independently Participation Restrictions: Self-care, Home management, Community leisure Activity Tolerance: Tolerates 10 - 20 min activity with multiple rests Evaluation/Treatment Tolerance: Patient limited by fatigue Diagnosis: impaired functional mobility Rehab Potential: Good, to achieve stated therapy goals Eval Complexity History Profile: 1 - 2 personal factors and/or comorbidities Clinical Presentation: Evolving clinical presentation with changing characteristics Clinical Decision Making: Moderate complexity PT Recommendations Discharge Destination: Subacute rehab Discharge Equipment: Defer to facility Plan Planned PT Interventions Balance training, Bed mobility training, Gait training, Transfer training, Functional Mobility, Strengthening PT Frequency 2 - 5 times per week PT Duration 2 weeks Goals PT GOAL DETAILS Time Frame PT Goal 1: Pt will perform supine<>sit transfers independently with HOB flat, no use of bed rails. 2 weeks PT Goal 2: Pt will perform sit to stand and bed to chair transfers with Magaly and LRD. 2 weeks PT Goal 3: Pt will ambulate 150 ft with Magaly and LRD. 2 weeks PT Goal 4: Pt will safely ascend/descend 2 steps with SBA, no handrail. 2 weeks Written by Rosalind Sanchez, PT on 06/16/23 at 9:13 AM. * Nursing Note - Miranda Lee RN - 06/16/2023 4:04 AM EDT Noted to be mumbling to himself and picking dry flakes of skin and scabs from RLE and throwing theminto the floor. * H&P - Linda Georges MD - 06/15/2023 10:28 PM EDT Images from the original note were not included. CA3 H&P 06/15/23 SUBJECTIVE Robert Hurley is a 58 y.o. male w/HFrEF, suspected COPD, CAMACHO cirrhosis, DM2, CKD4, prior L AKA who initially [facility] on 06/14 with chief complaint of acute dyspnea. Patient states he developed sudden onset dyspnea at 10am. Notes he was at rest. Denies fevers, chills, sick contacts, chest pain, and palpitations. States he has chronic cough productive of white sputum, which has not changed. No recent abx/steroid courses for COPD exacerbation. Has rescue and maintenance inhaler, unable to name them. His maintenance inhaler is broken, and he has not used it for 3 weeks. Does use rescue inhaler 2-3x/d. Did not require rescue inhaler for episode of dyspnea today. He wears 2L NC at night while sleeping only. Patient obtains home oxygen w/o Rx. Describes 20lb weight gain and RLE edema. Taking 40mg PO lasix daily. Has not taken extra doses. Patient called EMS for evaluation. Chart indicates he was hypoxic and given meds for possible COPD exacerbation. Brought to ED. Quickly weaned to NC. BNP and trops elevated, but CXR and EKG unremarkable. Cardiology was consulted for concern for CHF exacerbation. At time of evaluation, patient is HD stable on 2L NC with sats above goal. His only complaint at this time is fatigue and requests a CPAP for undiagnosed sleep apnea. He endorses chronic, sporadic orthopnea but was asleep supine at time of evaluation. He has never seen a terry cloth cutter hand or had formal PFTs. Reports having no PCP. Recent admission 02/2023 for CHF exac. Has not been seen in Cardiology clinic outpatient since discharge. Also has not yet established with Nephrology for CKD. Review of Systems Constitutional: Negative for chills and diaphoresis. HENT: Negative. Negative for stridor. Eyes: Negative. Cardiovascular: Negative for chest pain, leg swelling and palpitations. Respiratory: Positive for cough (chronic) and shortness of breath. Negative for wheezing. Endocrine: Negative. Hematologic/Lymphatic: Negative. Skin: Xerosis, skin picking lesions Musculoskeletal: Negative. Gastrointestinal: Negative. Genitourinary: Negative. Neurological: Negative. Psychiatric/Behavioral: Negative. Allergic/Immunologic: Negative. Past 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: Diagnosis Date Personal history [...] OF STENT N/A Cath Stent Placement from [facility] CHOLECYSTECTOMY N/A Cholecystectomy from [facility] Family History Problem Relation Name Age of Onset Diabetes Mother Hypertension Mother Hypertension Father Other cancer Father Obesity Mother Conversions - Other Mother Heart trouble Conversions - Other Father Heart trouble Hyperlipidemia Father Social History Tobacco Use Smoking status: Every Day Types: Cigarettes Smokeless tobacco: Never Vaping Use Vaping Use: Never used Substance Use Topics Alcohol use: No Drug use: Never Comment: Drug use: No drug use Allergies Allergen Reactions Penicillins Shortness of breath Patient received 1g of ceftriaxone at OSH and had no issues Current Outpatient Medications Medication Instructions aspirin 81 mg, Oral, Daily atorvastatin (LIPITOR) 80 mg, Oral, Daily carvedilol (COREG) 12.5 mg, Oral, 2 times daily clopidogrel (PLAVIX) 75 mg, Oral, Daily dapagliflozin (FARXIGA) 10 mg, Oral, Daily entecavir (BARACLUDE) 0.5 mg, Oral, Every other day furosemide (LASIX) 40 mg, Oral, Daily gabapentin (NEURONTIN) 600 mg, Oral, 3 times daily hydrALAZINE (APRESOLINE) 50 mg, Oral, 3 times daily (0600, 1200 & 1800) isosorbide dinitrate (ISORDIL) 40 mg, Oral, 3 times daily (0600, 1200 & 1800) Levemir 18 Units, Subcutaneous, Daily nitroglycerin (NITROSTAT) 0.4 mg, Sublingual, Every 5 min PRN NovoLOG FlexPen ReliOn 6 Units, Subcutaneous, 3 times daily Umeclidinium [place] (Incruse Ellipta) 62.5 MCG/ACT aerosol powder 1 Inhalation, Inhalation, Daily OBJECTIVE Vitals Visit Vitals BP (!) 164/91 Pulse 74 Temp 36.7 ??C (98 ??F) (Oral) Wt 91.1 kg (200 lb 13.4 oz) SpO2 99% BMI 27.24 kg/m?? Intake/Output Summary (Last 24 hours) at 06/15/20232231 Last data filed at 06/15/2023 1930 Gross per 24 hour Intake -- Output 550 ml Net -550 ml Net IO Since Admission: -550 mL [06/15/232231] O2 Delivery Method: Nasal cannula MD SUP: 8 cm H20 FiO2 (%): 28 % MD SUP: 8 cm H20 MAP (cm H2O): 10 Physical Exam Vitals reviewed. Constitutional: General: He is not in acute distress. Appearance: He is not ill-appearing, toxic-appearing or diaphoretic. Comments: Disheveled. HENT: Head: Normocephalic. Eyes: General: No scleral icterus. Extraocular Movements: Extraocular movements intact. Conjunctiva/sclera: Conjunctivae normal. Pupils: Pupils are equal, round, and reactive to light. Cardiovascular: Rate and Rhythm: Regular rhythm. Tachycardia present. Pulses: Normal pulses. Heart sounds: Normal heart sounds. No murmur heard. Pulmonary: Effort: Pulmonary effort is normal. No respiratory distress. Breath sounds: Normal breath sounds. No wheezing, rhonchi or rales. Comments: On 2L NC with sats 100%. No respiratory distress. No tripoding. No accessory muscle use. Abdominal: General: There is no distension. Palpations: Abdomen is soft. Tenderness: There is no abdominal tenderness. Musculoskeletal: Right lower leg: No edema. Comments: Surgically acquired LLE amputation Skin: General: Skin is warm and dry. Comments: Severe xerosis RLE with chronic dermatitis associated with recurrent peripheral edema. Small circular lesions c/w excoriation diffusely on body. Neurological: General: No focal deficit present. Mental Status: He is alert and oriented to person, place, and time. Psychiatric: Mood and Affect: Mood normal. Behavior: Behavior normal. Laboratory Studies: I personally reviewed recent lab work today in [facility] in last 18 hours CBC WBC 5.31 Hb 11.9 (L) Plt 250 Hct 37.3 (L) ANC 3.31 INR 1.1, PTT ??, Anti-Xa ?? BMP Na 140 Cl 101 BUN 27 (H) Glu 181 (H) K 4.6 Co2 26 Cr 2.26 (H) Ca 9.5 iCa 4.8 Mg 1.8 (L), Phos ?? Lactate ?? LFT AST 28 AlkPhos 157 (H) T Prot 7.0 ALK 8 (L) Bili 1.1 Alb ?? D.Bili ?? Cardiology Studies: Most recent Echocardiogram: Echo, Adult Transesophageal (EDD) Result Date: 02/10/2023 [...] is no recent study available for direct [id number] comparison. Echo, Adult Transthoracic Complete Result Date: [...] is no recent study available for direct [id number] comparison. Consider further evaluation with a transesophageal echocardiogram if clinically indicated. ECG/Telemetry: Encounter Date: 06/15/23 EKG now - STAT (adult) Result Value EKG DIAGNOSIS CLASS Abnormal Ventricular Rate 63 Atrial Rate 63 MD Interval 144 QRSD Interval 112 QT Interval 454 QTC Interval 464 P [place] 58 R [place] -22 T Wave [place] 146 Diagnosis Normal sinus rhythm Diagnosis Minimal voltage criteria for LVH, may be normal variant Diagnosis ( Diagnosis Uzair product Diagnosis ) Diagnosis Anterior infarct Diagnosis , age undetermined Diagnosis ST & Diagnosis T wave abnormality, consider lateral ischemia Diagnosis Abnormal ECG Diagnosis Confirmed by Zia Bradford ([id number]) on 06/15/2023 3:25:32 PM *Note: Due to a large number of results and/or encounters for the requested time period, some results have not been displayed. A complete set of results can be found in Results Review. Radiology Results Imaging (past 24h): I personally visualized and interpreted all of the imaging studies below and I agree with formal interpretation: no airspace disease, no pulm edema, no PTX XR Chest 1 View Result Date: 06/15/2023 Small left pleural effusion. CRITICAL RESULT: No. COMMUNICATION: Per this written report. By electronically signing this report, I, the attending physician, attest that I have personally reviewed theimages/data for the above examination(s) and agree with the final edited report. Drafted by Matthew Gonzalez DO on 06/15/2023 1:30 PM Final report signed by Kurt Hightower MD on 06/15/2023 1:39 PM MEDICATIONS (facility administered) aspirin, 81 mg, Oral, Daily [START ON 06/16/2023] atorvastatin, 80 mg, Oral, Daily carvedilol, 12.5 mg, Oral, BID [START ON 06/16/2023] clopidogrel, 75 mg, Oral, Daily [START ON 06/16/2023] entecavir, 0.5 mg, Oral, Every other day [START ON 06/16/2023] furosemide, 40 mg, Oral, Daily gabapentin, 300 mg, Oral, TID [START ON 06/16/2023] hydrALAZINE, 50 mg, Oral, TID (0600, 1200 & 1800) [START ON 06/16/2023] isosorbide dinitrate, 40 mg, Oral, TID (0600, 1200 & 1800) mometasone-formoterol, 2 puff, Inhalation, BID polyethylene glycol, 17 g, Oral, Daily senna, 2 tablet, Oral, Nightly sodium chloride, 10 mL, Intravenous, q12h Tiotropium [place] Monohydrate, 2 puff, Inhalation, Daily PRN medications: acetaminophen, ipratropium-albuterol, [COMPLETED] Insert peripheral IV AND [COMPLETED] Saline lock IV AND sodium chloride AND sodium chloride ASSESSMENT/PLAN Robert Hurley is a 58 y.o. male who initially presented to [facility] on 06/14 withchief complaint of acute dyspnea. 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 - wears oxygen at night only for suspected sleep apnea that he obtains without Rx - nonadherent to inhaler therapy - presented to ED today via EMS for acute dyspnea/?hypoxia; initially required NRB and bipap b ut no desaturations were documented so unclear veracity - EMS gave solumedrol and nebulizer treatment with improvement and weaned to NC rapidly upon arrival to ED - dyspnea appears at baseline and there is no change sputum production or quality: clinical pictureinconsistent with acute exacerbation or with severe/end stage COPD - BNP is elevated and patient describes weight gain and peripheral edema, however exam and imaging inconsistent with CHF exac - HD stable, in no respiratory distress without air hunger, on 2L NC with sats 100% at time of initial evaluation, now on RA with sats 98% PLAN: - sent nasopharyngeal panel though seems noninfectious - would favor sat goal of 88-92% if COPD diagnosis is true (past imaging does support this but cannot confirm obstructive physiology without PFTs at this time) and can use suppl O2 for this effect - wean oxygen to off given sats above goal - no si/sx of COPD exacerbation: defer steroids and antibiotics - resume home inhaler equivalents - prn duo nebs - needs pulmonology referral and formal PFTs/6MW - has a pending referral to Sleep Medicine given concern for sleep apnea: reiterated that we cannotsupply a home machine without formal evaluation and encouraged to schedule sleep study to get CPAP Possible acute HFrEF exacerbation CAD - does not follow with Cardiology - presumed ICM - EF 40-45% per 01/2023 echo - medical managed NSTEMI 01/2023, on DAPT - recent admission for HF exac 02/2023 - presented today with acute dyspnea/?hypoxia - reports weight gain and peripheral edema but exam inconsistent and weight is stable at approx 210lb per chart review over last 5 months - CXR w/o pulm edema - BNP 58k on admission - trop 94 --> 73, EKG negative, no CP - received 40mg IV lasix in ED - now on RA PLAN: - resume PO lasix 40mg daily - GDMT: holding ACEi/ARB/ARNI, SGLT2i, and MRA due to renal dysfunction; continue Coreg 12.5mg BID - continue hydralazine and isordil for afterload reduction - resume DAPT w/ASA and plavix - resume statin Complex social determinants of health Functional decline - lives alone, seems unable to care for himself, disheveled with soiled clothes - states he has HHPT at present: unclear if this is the case, documentation in the chart that he phoned outside Cardiology group for approval of HH referral but was not a patient at that practice - has been referred to several subspecialists for management of severe organ dysfunction but has not attended appointments: unclear reasons - of note, patient is 3mo out from last discharge, suspect he has run out of refills on medications - would benefit from SW and PT/OT evaluation - needs PCP referral Chronic HTN: hypertensive on admission, adherence unclear; resume coreg, hydral, isordil DM2: holding Farxiga for renal dysfunction, start SSI and scheduled insulin Chronic Hep B: continue entecavir, does not follow with ID, unclear if taking Normocytic anemia iso CKD: Hg above goal of 10 CKD 4: BL Cr 2.5 w/ GFR 25; previously referred to Nephrology, did not attend, monitor UOP and Cr closely, holding Farxiga for renal dysfunction CAMACHO cirrhosis, compensated: found on ultrasound 2020, no follow-ups since that time, no hx of HE/ascites/EV/SBP/HCC, MELD 3.0: 16; no home meds L AKA due cellulitis and abscess 2018 F: PO E: monitor and replete as needed N: PO DVT ppx: hep ppx Code Status: full Dispo: Admit to ANGELA Georges MD Internal Medicine PGY3 Pager# [phone] Cosigned by John Mattson MD at 06/16/2023 4:34 PM EDT Associated attestation - John Mattson MD - 06/16/2023 4:34 PM EDT I saw and evaluated the patient with the resident/fellow. I discussed the case with the resident/fellow and agree with the findings and plan as documented. Decompensated combined heart failure in the setting of multiple comorbidities. Will optimize medical therapy. * ED Provider Notes - Ajay Cutler MD - 06/15/2023 1:01 PM EDT - HPI Chief Complaint Patient presents with Shortness of Breath Robert Hurley is a 58 yoM with PMH of CAD s/p PCI, HFmrEF, COPD, DM2, CAMACHO cirrhosis, and left AKA who presented today with shortness of breath. Patient states symptoms began this morning and he has been unable to catch his breath. Patient called EMS who gave the patient 125 mg Solu-Medrol, DuoNebs.Initial wheezing improved however patient continued to complain of shortness of breath. Patient wasplaced on CPAP for transport and tolerated this well. At time of arrival, patient was awake and alert. Patient does report some leg swelling as remaining right leg despite daily Lasix. Patient deniesheadache, lightheadedness, chest pain, shortness of breath, or numbness/weakness. No data recorded Patient History Past 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: Diagnosis Date [...] Placement from [facility] CHOLECYSTECTOMY N/A Cholecystectomy from [facility] Family History Problem Relation Name Age of Onset Diabetes Mother Hypertension Mother Hypertension Father Other cancer Father Obesity Mother Conversions - Other Mother Heart trouble Conversions - Other Father Heart trouble Hyperlipidemia Father Tobacco Use Smoking status: Every Day Types: Cigarettes Smokeless tobacco: Never Vaping Use Vaping Use: Never used Substance Use Topics Alcohol use: No Drug use: Never Comment: Drug use: No drug use Immunization History Immunization History: reviewed Allergies: Allergies Allergen Reactions Penicillins Shortness of breath Patient received 1g of ceftriaxone at OSH and had no issues Review of Systems Review of Systems Constitutional: Negative for chills and fever. HENT: Negative for ear pain and sore throat. Eyes: Negative for pain and visual disturbance. Respiratory: Negative for cough and shortness of breath. Cardiovascular: Negative for chest pain and palpitations. Gastrointestinal: Negative for abdominal pain and vomiting. Genitourinary: Negative for dysuria and hematuria. Musculoskeletal: Negative for arthralgias and back pain. Skin: Negative for color change and rash. Neurological: Negative for seizures and syncope. All other systems reviewed and are negative. Physical Exam ED Triage Vitals Temp Heart Rate Resp BP 06/15/23 1306 06/15/23 1306 06/15/23 1306 06/15/23 1306 36.6 ??C (97.9 ??F) 71 20 (!) 177/94 SpO2 Temp Source Heart Rate Source Patient Position 06/15/23 1306 06/15/23 1306 -- -- 100 % Oral BP Location FiO2 (%) 06/15/23 1306 06/15/23 1305 Right arm 30 % Physical Exam Vitals and nursing note reviewed. Constitutional: General: He is not in acute distress. Appearance: He is not toxic-appearing. HENT: Head: Normocephalic and atraumatic. Nose: Nose normal. Mouth/Throat: Mouth: Mucous membranes are moist. Pharynx: Oropharynx is clear. No oropharyngeal exudate or posterior oropharyngeal erythema. Eyes: General: No scleral icterus. Extraocular Movements: Extraocular movements intact. Conjunctiva/sclera: Conjunctivae normal. Pupils: Pupils are equal, round, and reactive to light. Cardiovascular: Rate and Rhythm: Normal rate and regular rhythm. Pulses: Normal pulses. Heart sounds: No murmur heard. No friction rub. No gallop. Pulmonary: Effort: Pulmonary effort is normal. No tachypnea or respiratory distress. Breath sounds: Wheezing present. No decreased breath sounds, rhonchi or rales. Abdominal: General: Abdomen is flat. There is no distension. Palpations: Abdomen is soft. There is no mass. Tenderness: There is no abdominal tenderness. Musculoskeletal: General: No swelling, tenderness or deformity. Normal range of motion. Cervical back: Normal range of motion and neck supple. No tenderness. Skin: General: Skin is warm and dry. Capillary Refill: Capillary refill takes less than 2 seconds. Findings: No lesion or rash. Neurological: General: No focal deficit present. Mental Status: He is alert and oriented to person, place, and time. Cranial Nerves: No cranial nerve deficit. Gait: Gait normal. Psychiatric: Mood and Affect: Mood normal. Behavior: Behavior normal. Thought Content: Thought content normal. ED Course & MDM Clinical Impressions as of 06/15/23 1541 Shortness of breath - Medical Decision Making Robert Hurley is a 58 yoM with PMH of CAD s/p PCI, HFmrEF, COPD, DM2, CAMACHO cirrhosis, and left AKA who presented today with shortness of breath. Differential diagnosis includes but is not limited to COPD exacerbation, CHF exacerbation, pneumonia, pleural effusion, among others. In order to explore th is differential further, CBC, CMP, troponins, magnesium, BNP, PT INR, VBG were obtained. Chest x-ray was obtained. Laboratory workup, personally interpreted notable for mild elevation in serum troponin, elevation in BNP above baseline, VBG with normal pH, normal pCO2, normal lactate. Patient was given DuoNebs, IV magnesium, IV Lasix. Patient was transitioned from BiPAP to 2 L nasal cannula. Care for this patient transferred to oncoming resident physician pending reassessment and final disposition. ED Prescriptions None Sign Off Checklist Clinical Impression: Complete ED Disposition: See Transfer of Care note for ED Disposition - Ajay Cutler MD Resident 06/15/23 2919 Cosigned by Nell Baxter DO at 06/16/2023 7:18 AM EDT Associated attestation - Nell Baxter DO - 06/16/2023 7:18 AM EDT I saw and evaluated the patient with the resident/fellow. I discussed the case with the resident/fellow and agree with the findings and plan as documented. * ED Triage Notes - Raji Lakhani RN - 06/15/2023 1:01 PM EDT Pt arive via [facility] SOA worsening since 10am this datte. Per ems ptt was hypoxic upon arrival. Pt arrrives on 15lpm nrb * Progress Notes - Krystle Ambrosio, - 06/15/2023 1:01 PM EDT I received sign-out and accepted care of this patient from the departing Drs: resident Dr. Cutler and attending at 2pm. Please see the primary providers??? note for complete elements of the history,physical exam, and ED course. Illness Severity: Stable Patient Summary: Robert Hurley is a 58 y.o. male with a PMHx of Past 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: Diagnosis Date Personal history [...] mental and behavioral disorders History of depression presented to the ED SOB. Please see initial provider note for more details. Most recent vital signs: Visit Vitals BP (!) 151/94 (BP Location: Right arm, Patient Position: Lying) Pulse 72 Temp 36.6 ??C (97.8 ??F) (Oral) Resp 16 Wt 91.1 kg (200 lb 13.4 oz) SpO2 98% BMI 27.24 kg/m?? Smoking Status Every Day BSA 2.15 m?? Lab and imaging results: Reviewed. Action plan (To Do): Dispo pending reassessment and 2nd troponin. Delta troponin 21. I discussed with patient and Cardiology given significant delta trop. Cardiology agreed to evaluate the patient. Disposition: Patient admitted to cardiology given likely COPD versus CHF exacerbation. ED Course as of 06/16/2320Jun 15, 2023 181 Troponin Delta(!): 21 [CS] ED Course User Index [CS] Krystle Ambrosio DO Clinical Impressions as of 06/16/23 0021 Shortness of breath - Cosigned by Regina Arrington MD at 06/21/2023 6:46 PM EDT Associated attestation - Regina Arrington MD - 06/21/2023 6:46 PM EDT I saw and evaluated the patient with the resident/fellow. I discussed the case with the resident/fellow and agree with the findings and plan as documented. documented in this encounter Plan of Treatment Upcoming Encounters Date Type Department Care Team (Late st Contact Info) Description 03/07/2024 1:40 PM EST Office Visit [facility] [address], [address] [place] [address] Naeem Blunt MD [address] [place] [address] Scheduled Orders Name Type Priority Associated Diagnoses Orde r Schedule N-Terminal Probnp Lab Routine Acute on chronic congestive heart failure, unspecified heart failure type (CMS/HCC) Expected: 06/17/2023 (Approximate), Expires: 12/17/2024 Magnesium Lab Routine Acute on chronic congestive heart failure, unspecified heart failure type (CMS/HCC) Expected: 06/17/2023 (Approximate), Expires: 12/17/2024 Renal function panel Lab Routine Acute on chronic congestive heart failure, unspecified heart failure type (CMS/HCC) Expected: 06/17/2023 (Approximate), Expires: 12/17/2024 Scheduled Referrals Name Type Priority Associated Diagnoses Order Schedule Discharge Ambulatory referral to [facility] Outpatient Referral Routine Shortness of breath Expected: 06/18/2023, Expires: 12/17/2024 Discharge Ambulatory referral - High Risk Outpatient Referral Routine Acute on chronic congestive heart failure, unspecified heart failure type (CMS/HCC) 1 Occurrences starting 06/17/2023 until 12/17/2024 Discharge Ambulatory referral to Nephrology Clinic Outpatient Referral Routine Chronic kidney disease, unspecified CKD stage 1 Occurrences starting 06/17/2023 until 12/17/2024 documented as of this encounter Procedures Procedure Name Priority Date/Time Associated Diagnosis Comments POCT GLUCOSE METER UNSOLICITED RESULTS Routine 06/17/2023 1:18 PM EDT MULTI DRUG RESISTANCE TEST Routine 06/17/2023 11:48 AM EDT POCT GLUCOSE METER UNSOLICITED RESULTS Routine 06/17/2023 8:54 AM EDT CBC W/O DIFFERENTIAL Routine 06/17/2023 4:57 AM EDT PHOSPHORUS, PLASMA Routine 06/17/2023 4: 57 AM EDT MAGNESIUM, PLASMA Routine 06/17/2023 4:5 7 AM EDT BASIC METABOLIC PANEL, PLASMA Routine 06/17/2023 4:57 AM EDT POCT GLUCOSE METER UNSOLICITED RESULTS Routine 06/16/2023 8:22 PM EDT POCT GLUCOSE METER UNSOLICITED RESULTS Routine 06/16/2023 5:51 PM EDT POCT GLUCOSE METER UNSOLICITED RESULTS Routine 06/16/2023 1:34 PM EDT POCT GLUCOSE METER UNSOLICITED RESULTS Routine 06/16/2023 9:01 AM EDT OXYGEN THERAPY Routine 06/16/2023 8:00 AM EDT CBC W/O DIFFERENTIAL Routine 06/16/2023 3:58 AM EDT PHOSPHORUS, PLASMA Routine 06/16/2023 3: 58 AM EDT MAGNESIUM, PLASMA Routine 06/16/2023 3:5 8 AM EDT HEMOGLOBIN A1C Add-On 06/16/2023 3:58 AM EDT LIPID PROFILE, PLASMA Add-On 06/16/2023 3:58 AM EDT BASIC METABOLIC PANEL, PLASMA Routine 06/16/2023 3:58 AM EDT NASOPHARYNGEAL RESPIRATORY PANEL Routine 06/16/2023 3:57 AM EDT WOUND OSTOMY EVAL AND TREAT Routine 06/16/2023 3:15 AM EDT OXYGEN THERAPY Routine 06/15/2023 10:28 PM EDT OXYGEN THERAPY Routine 06/15/2023 10:28 PM EDT TROPONIN T, HIGH SENSITIVITY, 2 HOUR, PLASMA Timed 06/15/2023 5:22 PM EDT XR CHEST 1 VIEW STAT 06/15/2023 1:27 PM EDT ECG ADULT STAT 06/15/2023 1:12 PM EDT BLOOD GAS PANEL, VENOUS STAT 06/15/19 1:11 PM EDT NON-INVASIVE VENTILATION Routine 06/15/2023 1:09 PM EDT TROPONIN T, HIGH SENSITIVITY, 0 HOUR, PLASMA, REFLEX TO 2 HOUR STAT 06/15/2023 1:09 PM EDT N-TERMINAL PROBNP, PLASMA STAT 06/15/2023 1:09 PM EDT PROTHROMBIN TIME(PT) / INR STAT 06/15/2023 1:09 PM EDT CBC WITH AUTO DIFFERENTIAL STAT 06/15/2023 1:09 PM EDT MAGNESIUM, PLASMA STAT 06/15/2023 1:0 9 PM EDT COMPREHENSIVE METABOLIC PANEL, PLASMA STAT 06/15/2023 1:09 PM EDT documented in this encounter Results * (ABNORMAL) POCT glucose meter (06/17/2023 1:18 PM EDT) [facility] POCT Glucose 119(H) 74 - 99 mg/dL 06/17/2023 1:20 PM EDT [facility] Comment:Accuracy of a glucos e result obtained from a capillary whole blood specimen relies upon adequate, non-compromised capillary blood flow. If the capillary glucose result is not consistent with the patient's clinical signs and symptoms, glucose testing should be repeated with either an arterial or venous sample on the glucometer or sent to the main labortory for testing. Comment 06/17/2023 1:20 PM EDT [facility] Eyewear Manufacturing Tech ID Holly Parsons 06/17/2023 1:20 PM EDT [facility] Device ID [id number] 06/17/2023 1:20 PM EDT [facility] Specimen Type POC Capillary 06/17/2023 1:20 PM EDT [facility] Blood Capillary blood specimen / Unknown 06/17/2023 1:18 PM EDT 06/17/2023 1:20 PM EDT us John Mattson MD LAB POINT OF CARE TE ST DOCKED DEVICE UNSOLICITED RESULTS Final Result [facility] [address] [place] [address] * (ABNORMAL) Multi Drug Resistance Test (06/17/2023 11:48 AM EDT) [facility] Culture Methicillin-Resis tant Staphylococcus aureus(AA) 06/18/2023 12:58 PM EDT [facility] Comment: The organism value for this result has been updated. These results have been appended to the previously preliminary verified report. <null> has been updated to reportable. Swab (Nares and Josefina Rectal) Non-blood Collection / Unknown 06/17/2023 11:48 AM EDT 06/17/2023 12:08 PM EDT us John Mattson MD LAB MICROBIOLOGY - GENERAL ORDAnna ALLEN Final Result Performing Organization Address City/[facility]/ZIP Co de Phone Number [facility] [address] [place] [address] * (ABNORMAL) POCT glucose meter (06/17/2023 8:54 AM EDT) [facility] POCT Glucose 247(H) 74 - 99 mg/dL 06/17/2023 8:55 AM EDT [facility] Comment:Accuracy of a glucos e result obtained from a capillary whole blood specimen relies upon adequate, non-compromised capillary blood flow. If the capillary glucose result is not consistent with the patient's clinical signs and symptoms, glucose testing should be repeated with either an arterial or venous sample on the glucometer or sent to the main labortory for testing. Comment 06/17/2023 8:55 AM EDT [facility] Eyewear Manufacturing Tech ID Holly Parsons 06/17/2023 8:55 AM EDT [facility] Device ID [id number] 06/17/2023 8:55 AM EDT [facility] Specimen Type POC Capillary 06/17/2023 8:55 AM EDT [facility] Blood Capillary blood specimen / Unknown 06/17/2023 8:54 AM EDT 06/17/2023 8:55 AM EDT us John Mattson MD LAB POINT OF CARE TE ST DOCKED DEVICE UNSOLICITED RESULTS Final Result Performing Organization Address City/[facility]/ZIP Co de Phone Number [facility] [address] [place] [address] * (ABNORMAL) CBC W/O Differential (06/17/2023 4:57 AM EDT) WBC Count 6.14 3.70 - 10.30 10*3/uL LAB HEMATOLOGY METHOD 06/17/2023 6:23 AM EDT [facility] RBC Count 3.70(L) 4.60 - 6.10 10*6/uL LAB HEMATOLOGY METHOD 06/17/2023 6:23 AM EDT [facility] HGB 10.1(L) 13.7 - 17.5 g/dL LAB HEMATOLOGY METHOD 06/17/2023 6:23 AM EDT [facility] HCT 31.4(L) 40.0 - 51.0 % LAB HEMATOLOGY METHOD 06/17/2023 6:23 AM EDT [facility] Platelet Count 204 155 - 369 10*3/uL LAB HEMATOLOGY METHOD 06/17/2023 6:23 AM EDT [facility] MCV 85 79 - 98 fL LAB HEMATOLOGY METHOD 06/17/2023 6:23 AM EDT [facility] MCH 27.3 26.0 - 32.0 pg LAB HEMATOLOGY METHOD 06/17/2023 6:23 AM EDT [facility] MCHC 32.2 30.7 - 35.5 g/dL LAB HEMATOLOGY METHOD 06/17/2023 6:23 AM EDT [facility] RDW 13.6 11.5 - 14.5 % LAB HEMATOLOGY METHOD 06/17/2023 6:23 AM EDT [facility] MPV 11.4 8.8 - 12.5 fL LAB HEMATOLOGY METHOD 06/17/2023 6:23 AM EDT [facility] nRBC 0.0 <=0.0 per 100 WBCs LAB HEMATOLOGY METHOD 06/17/2023 6:23 AM EDT [facility] Blood Venous blood specimen / Unknown Venipuncture / Unknown 06/17/2023 4:57 AM EDT 06/17/2023 5:17 AM EDT us John Mattson MD LAB BLOOD ORDERABLES Final Resu lt [facility] [address] [place] [address] * Phosphorus (06/17/2023 4:57 AM EDT) Phosphorus, Plasma 3.8 2.5 - 4.5 mg/dL 06/17/2023 5:42 AM EDT [facility] Blood Venous blood specimen / Unknown Venipuncture / Unknown 06/17/2023 4:57 AM EDT 06/17/2023 5:13 AM EDT John Mattson MD LAB BLOOD ORDERABLES Final Resu lt Performing Organization Address City/[facility]/ZIP Co de Phone Number [facility] [address] [place] [address] * Magnesium (06/17/2023 4:57 AM EDT) Magnesium, Plasma 2.3 1.9 - 2.4 mg/dL 06/17/2023 5:42 AM EDT [facility] Blood Venous blood specimen / Unknown Venipuncture / Unknown 06/17/2023 4:57 AM EDT 06/17/2023 5:13 AM EDT John Mattson MD LAB BLOOD ORDERABLES Final Resu lt Performing Organization Address City/[facility] Co de Phone Number [facility] [address] [place] [phone] * (ABNORMAL) Basic metabolic panel (06/17/2023 4:57 AM EDT) Glucose, Plasma 158(H) 74 - 99 mg/dL 06/17/2023 5:42 AM EDT [facility] BUN, Plasma 46(H) 7 - 21 mg/dL 06/17/2023 5:42 AM EDT [facility] Creatinine, Plasma 2.98(H) 0.80 - 1.30 mg/dL 06/17/2023 5:42 AM EDT [facility] BUN/Creatinine Ratio 15 06/17/2023 5:42 AM EDT [facility] Sodium, Plasma 140 136 - 145 mmol/L 06/17/2023 5:42 AM EDT [facility] Potassium, Plasma 4.0 3.7 - 4.8 mmol/L 06/17/2023 5:42 AM EDT [facility] Chloride, Plasma 100 97 - 107 mmol/L 06/17/2023 5:42 AM EDT [facility] CO2, Plasma 27 22 - 29 mmol/L 06/17/2023 5:42 AM EDT [facility] Anion Gap 13 6 - 16 mmol/L 06/17/2023 5:42 AM EDT [facility] Total Calcium, Plasma 8.6(L) 8.9 - 10.2 mg/dL 06/17/2023 5:42 AM EDT [facility] eGFRcr 23.8 mL/min/1.7 3m*2 06/17/2023 5:42 AM EDT [facility] Comment:Reported eGFRcr in m L/min/1.73m2 is based the CKD-EPI 2020 equation that does not use a race coefficient. Blood Venous blood specimen / Unknown Venipuncture / Unknown 06/17/2023 4:57 AM EDT 06/17/2023 5:13 AM EDT us John Mattson MD LAB BLOOD ORDERABLES Final Resu lt [facility] [address] [place] [address] * (ABNORMAL) POCT glucose meter (06/16/2023 8:22 PM EDT) POCT Glucose 182(H) 74 - 99 mg/dL 06/16/2023 8:25 PM EDT [facility] Comment:Accuracy of a glucos e result obtained from a capillary whole blood specimen relies upon adequate, non-compromised capillary blood flow. If the capillary glucose result is not consistent with the patient's clinical signs and symptoms, glucose testing should be repeated with either an arterial or venous sample on the glucometer or sent to the main labortory for testing. Comment 06/16/2023 8:25 PM EDT [facility] Eyewear Manufacturing Tech ID Juliette Ochoa 06/16/2023 8:25 PM EDT [facility] Device ID [id number] 06/16/2023 8:25 PM EDT [facility] Specimen Type POC Capillary 06/16/2023 8:25 PM EDT [facility] Blood Capillary blood specimen / Unknown 06/16/2023 8:22 PM EDT 06/16/2023 8:25 PM EDT us John Mattson MD LAB POINT OF CARE TE ST DOCKED DEVICE UNSOLICITED RESULTS Final Result [facility] [address] [place] [address] * (ABNORMAL) POCT glucose meter (06/16/2023 5:51 PM EDT) Pathologist [facility] POCT Glucose 179(H) 74 - 99 mg/dL 06/16/2023 5:57 PM EDT [facility] Comment:Accuracy of a glucos e result obtained from a capillary whole blood specimen relies upon adequate, non-compromised capillary blood flow. If the capillary glucose result is not consistent with the patient's clinical signs and symptoms, glucose testing should be repeated with either an arterial or venous sample on the glucometer or sent to the main labortory for testing. Comment 06/16/2023 5:57 PM EDT [facility] [employer] Tech ID Monserrat Wilcox 06/16/2023 5:57 PM EDT [facility] Device ID [id number] 06/16/2023 5:57 PM EDT [facility] Specimen Type POC Capillary 06/16/2023 5:57 PM EDT [facility] Blood Capillary blood specimen / Unknown 06/16/2023 5:51 PM EDT 06/16/2023 5:57 PM EDT us John Mattson MD LAB POINT OF CARE TE ST DOCKED DEVICE UNSOLICITED RESULTS Final Result [facility] [address] [place] [address] * (ABNORMAL) POCT glucose meter (06/16/2023 1:34 PM EDT) [facility] POCT Glucose 116(H) 74 - 99 mg/dL 06/16/2023 1:37 PM EDT [facility] Comment:Accuracy of a glucos e result obtained from a capillary whole blood specimen relies upon adequate, non-compromised capillary blood flow. If the capillary glucose result is not consistent with the patient's clinical signs and symptoms, glucose testing should be repeated with either an arterial or venous sample on the glucometer or sent to the main labortory for testing. Comment 06/16/2023 1:37 PM EDT [facility] [employer] ID Monserrat Wilcox 06/16/2023 1:37 PM EDT [facility] Device ID [id number] 06/16/2023 1:37 PM EDT [facility] Specimen Type POC Capillary 06/16/2023 1:37 PM EDT [facility] Blood Capillary blood specimen / Unknown 06/16/2023 1:34 PM EDT 06/16/2023 1:37 PM EDT John Mattson MD LAB POINT OF CARE TE ST DOCKED DEVICE UNSOLICITED RESULTS Final Result Performing Organization Address City/[facility] Co de Phone Number [facility] [address] [place] [address] * (ABNORMAL) POCT glucose meter (06/16/2023 9:01 AM EDT) [facility] POCT Glucose 209(H) 74 - 99 mg/dL 06/16/2023 9:03 AM EDT [facility] Comment:Accuracy of a glucos e result obtained from a capillary whole blood specimen relies upon adequate, non-compromised capillary blood flow. If the capillary glucose result is not consistent with the patient's clinical signs and symptoms, glucose testing should be repeated with either an arterial or venous sample on the glucometer or sent to the main labortory for testing. Comment 06/16/2023 9:03 AM EDT [facility] [employer] Tech ID Monserrat Wilcox 06/16/2023 9:03 AM EDT [facility] Device ID [id number] 06/16/2023 9:03 AM EDT [facility] Specimen Type POC Capillary 06/16/2023 9:03 AM EDT [facility] Blood Capillary blood specimen / Unknown 06/16/2023 9:01 AM EDT 06/16/2023 9:03 AM EDT us John Mattson MD LAB POINT OF CARE TE ST DOCKED DEVICE UNSOLICITED RESULTS Final Result Performing Organization Address City/[facility]/ZIP Co de Phone Number [facility] [address] [place] [address] * (ABNORMAL) Lipid panel (06/16/2023 3:58 AM EDT) Cholesterol, Plasma 237(H) <200 mg/dL 06/16/2023 8:01 AM EDT [facility] Comment: Cholesterol Reference Range (age >17 years): Desirable? <200 mg/dL Borderline? 200 to 239 mg/dL Undesirable? >239 mg/dL HDL 53 >=40 mg/dL 06/16/2023 8:01 AM EDT [facility] Comment: HDL Cholesterol Reference Ranges (age >17 years): Female, acceptable? > or = 50 mg/dL Male, acceptable? > or = 40 mg/dL Triglycerides, Plasma 188(H) <150 mg/dL 06/16/2023 8:01 AM EDT [facility] Comment: Triglyceride Reference Range (age >17 years): Desirable:?? <150 mg/dL Borderline high:?? 150 to 199 mg/dL High:?? 200 to 499 mg/dL Very high:?? >499 mg/dL Increased risk of pancreatitis:?? >1000 mg/dL Cholesterol/HDL Ratio 4 06/16/2023 8:01 AM EDT [facility] LDL, Calculated 150(H) <100 mg/dL 8:01 AM EDT [facility] Comment: LDL Cholesterol Reference Range (age [...] than or equal to 12 hours? Unknown 06/16/2023 8:01 AM EDT [facility] Blood Venous blood specimen / Unknown Venipuncture / Unknown 06/16/2023 3:58 AM EDT 06/16/2023 4:10 AM EDT John Mattson MD LAB BLOOD ORDERABLES Final Resu lt Performing Organization Address [facility] de Phone Number [facility] [address] [place] [address] * (ABNORMAL) Hemoglobin A1c (06/16/2023 3:58 AM EDT) Hemoglobin A1c 6.6(H) <5.7 % 06/16/2023 9:18 AM EDT [facility] Blood Venous blood specimen / Unknown Venipuncture / Unknown 06/16/2023 3:58 AM EDT 06/16/2023 4:08 AM EDT Narrative [facility] - 06/16/2023 9:18 AM EDT HA1C Interpretive Data: Diagnosis of Diabetes: Diabetic > or = 6.5% Pre-diabetic 5.7 to 6.4% Non-diabetic < or = 5.6% Glycemic Targets for Type I and Type II Diabetics: Non- Adults <7.0% Adults <6.0% Children and Adolescents <7.5% Source: ??[place] [employer]. Standards of medical care in diabetes,2017. Diabetes Care.2017:40 (suppl 1):S1-S135. HbA1c assay performed by an ion-exchange chromatography method that is certified traceable to the DCCT. John Mattson MD LAB BLOOD ORDERABLES Final Resu lt Performing Organization Address [facility] de Phone Number [facility] [address] [place] [address] * (ABNORMAL) CBC W/O Differential (06/16/2023 3:58 AM EDT) WBC Count 3.91 3.70 - 10.30 10*3/uL LAB HEMATOLOGY METHOD 06/16/2023 4:25 AM EDT [facility] RBC Count 4.15(L) 4.60 - 6.10 10*6/uL LAB HEMATOLOGY METHOD 06/16/2023 4:25 AM EDT [facility] HGB 11.0(L) 13.7 - 17.5 g/dL LAB HEMATOLOGY METHOD 06/16/2023 4:25 AM EDT [facility] HCT 34.7(L) 40.0 - 51.0 % LAB HEMATOLOGY METHOD 06/16/2023 4:25 AM EDT [facility] Platelet Count 208 155 - 369 10*3/uL LAB HEMATOLOGY METHOD 06/16/2023 4:25 AM EDT [facility] MCV 84 79 - 98 fL LAB HEMATOLOGY METHOD 06/16/2023 4:25 AM EDT [facility] MCH 26.5 26.0 - 32.0 pg LAB HEMATOLOGY METHOD 06/16/2023 4:25 AM EDT [facility] MCHC 31.7 30.7 - 35.5 g/dL LAB HEMATOLOGY METHOD 06/16/2023 4:25 AM EDT [facility] RDW 13.5 11.5 - 14.5 % LAB HEMATOLOGY METHOD 06/16/2023 4:25 AM EDT [facility] MPV 11.3 8.8 - 12.5 fL LAB HEMATOLOGY METHOD 06/16/2023 4:25 AM EDT [facility] nRBC 0.0 <=0.0 per 100 WBCs LAB HEMATOLOGY METHOD 06/16/2023 4:25 AM EDT [facility] Blood Venous blood specimen / Unknown Venipuncture / Unknown 06/16/2023 3:58 AM EDT 06/16/2023 4:08 AM EDT us John Mattson MD LAB BLOOD ORDERABLES Final Resu lt Performing Organization Address City/State/[facility] Co de Phone Number [facility] [address] [place] [id number] * (ABNORMAL) Phosphorus (06/16/2023 3:58 AM EDT) [facility] Phosphorus, Plasma 4.8(H) 2.5 - 4.5 mg/dL 06/16/2023 5:00 AM EDT [facility] Blood Venous blood specimen / Unknown Venipuncture / Unknown 06/16/2023 3:58 AM EDT 06/16/2023 4:10 AM EDT us John Mattson MD LAB BLOOD ORDERABLES Final Resu lt Performing Organization Address City/[facility]/ZIP Co de Phone Number [facility] [address] [place] [address] * Magnesium (06/16/2023 3:58 AM EDT) Pathologist [facility] Magnesium, Plasma 2.2 1.9 - 2.4 mg/dL 06/16/2023 5:00 AM EDT [facility] Blood Venous blood specimen / Unknown Venipuncture / Unknown 06/16/2023 3:58 AM EDT 06/16/2023 4:10 AM EDT John Mattson MD LAB BLOOD ORDERABLES Final Resu lt Performing Organization Address [facility] Co de Phone Number [facility] [address] [place] [address] * (ABNORMAL) Basic metabolic panel (06/16/2023 3:58 AM EDT) Pathologist [facility] Glucose, Plasma 344(H) 74 - 99 mg/dL 06/16/2023 5:00 AM EDT [facility] BUN, Plasma 36(H) 7 - 21 mg/dL 06/16/2023 5:00 AM EDT [facility] Creatinine, Plasma 2.52(H) 0.80 - 1.30 mg/dL 06/16/2023 5:00 AM EDT [facility] BUN/Creatinine Ratio 14 06/16/2023 5:00 AM EDT [facility] Sodium, Plasma 136 136 - 145 mmol/L 06/16/2023 5:00 AM EDT [facility] Potassium, Plasma 4.6 3.7 - 4.8 mmol/L 06/16/2023 5:00 AM EDT [facility] Chloride, Plasma 98 97 - 107 mmol/L 06/16/2023 5:00 AM EDT [facility] CO2, Plasma 21(L) 22 - 29 mmol/L 06/16/2023 5:00 AM EDT [facility] Anion Gap 17(H) 6 - 16 mmol/L 06/16/2023 5:00 AM EDT [facility] Total Calcium, Plasma 9.2 8.9 - 10.2 mg/dL 06/16/2023 5:00 AM EDT [facility] eGFRcr 29.1 mL/min/1.7 3m*2 06/16/2023 5:00 AM EDT [facility] Comment:Reported eGFRcr in m L/min/1.73m2 is based the CKD-EPI 2020 equation that does not use a race coefficient. Blood Venous blood specimen / Unknown Venipuncture / Unknown 06/16/2023 3:58 AM EDT 06/16/2023 4:10 AM EDT John Mattson MD LAB BLOOD ORDERABLES Final Resu lt [facility] [address] [place] [address] * Nasopharyngeal Respiratory Panel (06/16/2023 3:57 AM EDT) Nasopharyngeal Respiratory PCR Interpretation Not Detected for all analytes Not Detected for all analytes 06/16/2023 6:08 AM EDT [facility] Swab Nasopharyngeal structure / Unknown Non-blood Collection / Unknown 06/16/2023 3:57 AM EDT 06/16/2023 4:21 AM EDT Narrative [facility] - 06/16/2023 6:08 AM EDT This assay can detect Adenovirus, Coronavirus, Human Metapneumovirus, Human Rhino/Enterovirus, Influenza A, Influenza A H1, Influenza A H1 2009, Influenza A H3, Influenza B, Parainfluenza Virus 1, Parainfluenza Virus 2, Parainfluenza Virus 3, Parainfluenza Virus 4, Respiratory Syncytial Virus A, Respiratory Syncytial Virus B, Chlamydia pneumoniae, and Mycoplasma pneumoniae. Note: This assay does NOT detect SARS/CoV, novel Coronavirus 2019-nCoV, Bordetella pertussis or Bordetella parapertussis. Nasopharyngeal Respiratory PCR Panel is performed using the Goji instrument. This assay is for in vitro diagnostic use under the FDA Emergency Use Authorization (EUA) only. The [facility] Clinical Microbiology Laboratory is certified under the Clinical Laboratory Improvement Amendments of 1988 (CLIA-88) as qualified to perform high complexity clinical laboratory testing. John Mattson MD LAB MICROBIOLOGY - GENERAL OSEAS ALLEN Final Result Performing Organization Address [facility] Co de Phone Number [facility] [address] [place] [address] * (ABNORMAL) Troponin T, High Sensitivity, 2 Hour, Plasma (06/15/2023 5:22 PM EDT) Troponin T, High Sensitivity, 2 Hour 73(H) <19 ng/L 06/15/2023 6:00 PM EDT [facility] Troponin Delta 21(H) <10 ng/L 06/15/2023 6:00 PM EDT [facility] Troponin Delta Interpretation Significant 06/15/2023 6:00 PM EDT [facility] Comment:Significant change i n Troponin observed (from baseline). Troponin values greater than the 99th%ile with a rising or falling pattern (a change of >= 10 ng/L between the baseline and 2 hour samples) highly suggests acute cardiac injury. Acute cardiac injury does not equate to acute myocardial infarction. Additional clinical criteria are necessary for the diagnosis of acute myocardial infarction. Blood Venous blood specimen / Unknown Venipuncture / Unknown 06/15/2023 5:22 PM EDT 06/15/2023 5:25 PM EDT Nell Baxter DO LAB BLOOD ORDERABLES Final Re sult Performing Organization Address [facility] Co de Phone Number [facility] [address] [place] [address] * XR Chest 1 View (06/15/2023 1:27 PM EDT) Anatomical Region Laterality Modality Chest Digital Radiogra phy Impressions 06/15/2023 1:39 PM EDT Small left pleural effusion. CRITICAL RESULT: ?? No. COMMUNICATION: Per this written report. By electronically signing this report, I, the attending physician, attest that I have personally reviewed the images/data for the above examination(s) and agree with the final edited report. Drafted by Matthew Menjivar DO on 06/15/2023 1:30 PM Final report signed by Kurt Hightower MD on 06/15/2023 1:39 PM Narrative 06/15/2023 1:39 PM EDT CLINICAL INDICATION: dyspnea TECHNIQUE: XR CHEST 1 VIEW COMPARISON: Chest radiograph March 23, 2023 FINDINGS: Unchanged cardiac and mediastinal contours. Small left pleural effusion.. No lobar consolidation or pneumothorax. Procedure Note Kurt Hightower MD - 06/15/2023 CLINICAL INDICATION: dyspnea TECHNIQUE: XR CHEST 1 VIEW COMPARISON: Chest radiograph March 23, 2023 FINDINGS: Unchanged cardiac and mediastinal contours. Small left pleural effusion..No lobar consolidation or pneumothorax. IMPRESSION: Small left pleural effusion. CRITICAL RESULT: No. COMMUNICATION: Per this written report. By electronically signing this report, I, the attending physician, nicko I have personally reviewed the images/data for the aboveexamination(s) and agree with the final edited report. Drafted by Matthew Menjivar DO on 06/15/2023 1:30 PM Final report signed by Kurt Hightower MD on 06/15/2023 1:39 PM us Nell Baxter DO IMG XR PROCEDURES Final Resul t * EKG now - STAT (adult) (06/15/2023 1:12 PM EDT) EKG DIAGNOSIS CLASS Abnormal MUSE ECG Ventricular Rate 63 BPM MUSE ECG Atrial Rate 63 BPM MUSE ECG MD Interval 144 ms MUSE ECG QRSD Interval 112 ms MUSE ECG QT Interval 454 ms MUSE ECG QTC Interval 464 ms MUSE ECG P [place] 58 degrees MUSE ECG R [place] -22 degrees MUSE ECG T Wave [place] 146 degrees MUSE ECG Diagnosis Normal sinus rhythm MUSE ECG Diagnosis Minimal voltage criteria for LVH, may be normal variant MUSE ECG Diagnosis ( MUSE ECG Diagnosis Uzair product MUSE ECG Diagnosis ) MUSE ECG Diagnosis Anterior infarct MUSE ECG Diagnosis , age undetermined MUSE ECG Diagnosis ST & MUSE ECG Diagnosis T wave abnormality, consider lateral ischemia MUSE ECG Diagnosis Abnormal ECG MUSE ECG Diagnosis Confirmed by Zia Bradford ([id number]) on 06/15/2023 3:25:32 PM MUSE ECG 06/15/2023 1:12 PM EDT 06/15/2023 3:25 PM EDT us Nell Baxter DO ECG ORDERABLES Final Result MUSE ECG * (ABNORMAL) Blood gas panel, venous (06/15/2023 1:11 PM EDT) pH, Venous 7.39 7.32 - 7.43 LAB HEMATOLOGY METHOD 06/15/2023 1:15 PM EDT [facility] pCO2, Venous 48 40 - 55 mmHg LAB HEMATOLOGY METHOD 06/15/2023 1:15 PM EDT [facility] pO2, Venous 22(L) 25 - 40 mmHg LAB HEMATOLOGY METHOD 06/15/2023 1:15 PM EDT [facility] SO2, Measured, Venous 32(L) 65 - 80 % LAB HEMATOLOGY METHOD 06/15/2023 1:15 PM EDT [facility] Base Excess, Venous 3.3(H) -2.0 - 3.0 mmol/L LAB HEMATOLOGY METHOD 06/15/2023 1:15 PM EDT [facility] Bicarbonate, Calculated, Venous 29(H) 22 - 26 mmol/L LAB HEMATOLOGY METHOD 06/15/2023 1:15 PM EDT [facility] Hematocrit, Whole Blood 37.9(L) 40.0 - 51.0 % LAB HEMATOLOGY METHOD 06/15/2023 1:15 PM EDT [facility] Sodium, Whole Blood 143 136 - 145 mmol/L LAB HEMATOLOGY METHOD 06/15/2023 1:15 PM EDT [facility] Potassium, Whole Blood 4.4 3.6 - 4.9 mmol/L LAB HEMATOLOGY METHOD 06/15/2023 1:15 PM EDT [facility] Chloride, Whole Blood 103 97 - 107 mmol/L LAB HEMATOLOGY METHOD 06/15/2023 1:15 PM EDT [facility] Glucose, Whole Blood 175(H) 74 - 99 mg/dL LAB HEMATOLOGY METHOD 06/15/2023 1:15 PM EDT [facility] Lactate, Venous, Whole Blood 1.7 0.5 - 2.2 mmol/L LAB HEMATOLOGY METHOD 06/15/2023 1:15 PM EDT [facility] Ionized Calcium, Whole Blood 4.8 4.6 - 5.1 mg/dL LAB HEMATOLOGY METHOD 06/15/2023 1:15 PM EDT [facility] Blood Venous blood specimen / Unknown Venipuncture / Unknown 06/15/2023 1:11 PM EDT 06/15/2023 1:12 PM EDT us Nell Juarez [employer] DO LAB BLOOD ORDERABLES Final Re sult Performing Organization Address [facility] Co de Phone Number [facility] [address] [place] [address] * (ABNORMAL) BNP (06/15/2023 1:09 PM EDT) N-Terminal, PROBNP, Plasma 58,765(H) 0 - 899 pg/mL 06/15/2023 1:45 PM EDT [facility] Blood Venous blood specimen / Unknown Venipuncture / Unknown 06/15/2023 1:09 PM EDT 06/15/2023 1:13 PM EDT us Nell Juarez [employer] DO LAB BLOOD ORDERABLES Final Re sult Performing Organization Address [facility] Co de Phone Number [facility] [address] [place] [address] * (ABNORMAL) Troponin now and 120 min (06/15/2023 1:09 PM EDT) Troponin T, High Sensitivity, 0 Hour 94(H) <19 ng/L 06/15/2023 1:37 PM EDT [facility] Blood Venous blood specimen / Unknown Venipuncture / Unknown 06/15/2023 1:09 PM EDT 06/15/2023 1:13 PM EDT us Nell Juarez [employer] DO LAB BLOOD ORDERABLES Final Re sult Performing Organization Address City/[facility] Co de Phone Number [facility] [address] [place] [address] * (ABNORMAL) Magnesium (06/15/2023 1:09 PM EDT) Magnesium, Plasma 1.8(L) 1.9 - 2.4 mg/dL 06/15/2023 1:37 PM EDT [facility] Blood Venous blood specimen / Unknown Venipuncture / Unknown 06/15/2023 1:09 PM EDT 06/15/2023 1:13 PM EDT us Nell Baxter DO LAB BLOOD ORDERABLES Final Re sult [facility] [address] [place] [address] * (ABNORMAL) CMP (06/15/2023 1:09 PM EDT) Glucose, Plasma 181(H) 74 - 99 mg/dL 06/15/2023 1:37 PM EDT [facility] BUN, Plasma 27(H) 7 - 21 mg/dL 06/15/2023 1:37 PM EDT [facility] Creatinine, Plasma 2.26(H) 0.80 - 1.30 mg/dL 06/15/2023 1:37 PM EDT [facility] BUN/Creatinine Ratio 12 06/15/2023 1:37 PM EDT [facility] Sodium, Plasma 140 136 - 145 mmol/L 06/15/2023 1:37 PM EDT [facility] Potassium, Plasma 4.6 3.7 - 4.8 mmol/L 06/15/2023 1:37 PM EDT [facility] Chloride, Plasma 101 97 - 107 mmol/L 06/15/2023 1:37 PM EDT [facility] CO2, Plasma 26 22 - 29 mmol/L 06/15/2023 1:37 PM EDT [facility] Anion Gap 13 6 - 16 mmol/L 06/15/2023 1:37 PM EDT [facility] Total Calcium, Plasma 9.5 8.9 - 10.2 mg/dL 06/15/2023 1:37 PM EDT [facility] Total Protein 7.0 6.3 - 7.9 g/dL 06/15/2023 1:37 PM EDT [facility] Albumin, Plasma 3.9 3.5 - 5.2 g/dL 06/15/2023 1:37 PM EDT [facility] AST, Plasma 28 10 - 50 U/L 06/15/2023 1:37 PM EDT [facility] ALT, Plasma 8(L) 10 - 50 U/L 06/15/2023 1:37 PM EDT [facility] Alkaline Phosphatase, Plasma 157(H) 40 - 115 U/L 06/15/2023 1:37 PM EDT [facility] Total Bilirubin, Plasma 1.1 0.2 - 1.1 mg/dL 06/15/2023 1:37 PM EDT [facility] eGFRcr 33.2 mL/min/1.7 3m*2 06/15/2023 1:37 PM EDT [facility] Comment:Reported eGFRcr in m L/min/1.73m2 is based the CKD-EPI 2020 equation that does not use a race coefficient. Blood Venous blood specimen / Unknown Venipuncture / Unknown 06/15/2023 1:09 PM EDT 06/15/2023 1:13 PM EDT us Nell Baxter DO LAB BLOOD ORDERABLES Final Re sult [facility] [address] [place] [address] * PT-INR (06/15/2023 1:09 PM EDT) Prothrombin Time 13.5 12.0 - 14.3 sec 06/15/2023 1:26 PM EDT [facility] INR 1.1 0.9 - 1.1 06/15/2023 1:26 PM EDT [facility] Blood Venous blood specimen / Unknown Venipuncture / Unknown 06/15/2023 1:09 PM EDT 06/15/2023 1:13 PM EDT Narrative [facility] - 06/15/2023 1:26 PM EDT OPTIMAL INR RANGES FOR PATIENT ON ORAL ANTICOAGULANT THERAPY Prevention of venous thromboembolism ?INR 2.0 to 3.0 In patients with heart disease: Atrial fibrillation ?INR 2.0 to 3.0 Valvular heart disease ? INR 2.0 to 3.0 Tissue heart valves ?INR 2.0 to 3.0 Mechanical prosthetic valves ? INR 2.5 to 3.5 Prevention of recurrent VA ? INR 2.5 to 3.5 us Nell L Vee DO LAB BLOOD ORDERABLES Final Re sult [facility] [address] [place] [address] * (ABNORMAL) CBC w/diff (06/15/2023 1:09 PM EDT) WBC Count 5.31 3.70 - 10.30 10*3/uL LAB HEMATOLOGY METHOD 06/15/2023 1:15 PM EDT [facility] RBC Count 4.46(L) 4.60 - 6.10 10*6/uL LAB HEMATOLOGY METHOD 06/15/2023 1:15 PM EDT [facility] HGB 11.9(L) 13.7 - 17.5 g/dL LAB HEMATOLOGY METHOD 06/15/2023 1:15 PM EDT [facility] HCT 37.3(L) 40.0 - 51.0 % LAB HEMATOLOGY METHOD 06/15/2023 1:15 PM EDT [facility] Platelet Count 250 155 - 369 10*3/uL LAB HEMATOLOGY METHOD 06/15/2023 1:15 PM EDT [facility] MCV 84 79 - 98 fL LAB HEMATOLOGY METHOD 06/15/2023 1:15 PM EDT [facility] MCH 26.7 26.0 - 32.0 pg LAB HEMATOLOGY METHOD 06/15/2023 1:15 PM EDT [facility] MCHC 31.9 30.7 - 35.5 g/dL LAB HEMATOLOGY METHOD 06/15/2023 1:15 PM EDT [facility] RDW 13.5 11.5 - 14.5 % LAB HEMATOLOGY METHOD 06/15/2023 1:15 PM EDT [facility] MPV 10.5 8.8 - 12.5 fL LAB HEMATOLOGY METHOD 06/15/2023 1:15 PM EDT [facility] nRBC 0.0 <=0.0 per 100 WBCs LAB HEMATOLOGY METHOD 06/15/2023 1:15 PM EDT [facility] Differential Type Automated LAB HEMATOLOGY METHOD 06/15/2023 1:15 PM EDT [facility] Neutrophils % 62.0 % LAB HEMATOLOGY METHOD 06/15/2023 1:15 PM EDT [facility] Lymphocytes % 29.0 % LAB HEMATOLOGY METHOD 06/15/2023 1:15 PM EDT [facility] Monocytes % 6.0 % LAB HEMATOLOGY METHOD 06/15/2023 1:15 PM EDT [facility] Eosinophils % 2.0 % LAB HEMATOLOGY METHOD 06/15/2023 1:15 PM EDT [facility] Basophils % 1.0 % LAB HEMATOLOGY METHOD 06/15/2023 1:15 PM EDT [facility] Immature Granulocytes % 0.0 % LAB HEMATOLOGY METHOD 06/15/2023 1:15 PM EDT [facility] Neutrophils Absolute 3.31 1.60 - 6.10 10*3/uL LAB HEMATOLOGY METHOD 06/15/2023 1:15 PM EDT [facility] Lymphocytes Absolute 1.55 1.20 - 3.90 10*3/uL LAB HEMATOLOGY METHOD 06/15/2023 1:15 PM EDT [facility] Monocytes Absolute 0.31 0.30 - 0.90 10*3/uL LAB HEMATOLOGY METHOD 06/15/2023 1:15 PM EDT [facility] Eosinophils Absolute 0.08 0.00 - 0.50 10*3/uL LAB HEMATOLOGY METHOD 06/15/2023 1:15 PM EDT [facility] Basophils Absolute 0.05 0.00 - 0.10 10*3/uL LAB HEMATOLOGY METHOD 06/15/2023 1:15 PM EDT [facility] Immature Granulocytes Absolute 0.01 0.00 - 0.06 10*3/uL LAB HEMATOLOGY METHOD 06/15/2023 1:15 PM EDT [facility] Blood Venous blood specimen / Unknown Venipuncture / Unknown 06/15/2023 1:09 PM EDT 06/15/2023 1:13 PM EDT Narrative [facility] - 06/15/2023 1:15 PM EDT Therapeutic decision making should be based on absolute values, rather than percentages. us Nell Baxter DO LAB BLOOD ORDERABLES Final Re sult [facility] [address] [place] [address] documented in this encounter Visit Diagnoses Diagnosis Shortness of breath- Primary Shortness of breath Acute on chronic congestive heart failure, unspecified heart failure type (CMS/HCC) Chronic kidney disease, unspecified CKD stage documented in this encounter Admitting Diagnoses Diagnosis Shortness of breath documented in this encounter Administered Medications Inactive Administered Medications - up to 3 most recent administrations Medication Order MAR Action Action Date Dose Rate Site acetaminophen (Tylenol) tablet 650 mg 650 mg, Oral, Every 4 hours PRN, Starting on Wed06/15/23 at 2225, Until Wed06/17/23 at 1715, Routine, mild pain, fever Given 06/16/2023 3:52 AM EDT 650 mg aspirin chewable tablet 81 mg 81 mg, Oral, Daily, First dose on Wed06/15/23 at 2230, Until Discontinued, Routine Given 06/17/2023 9:32 AM EDT 81 mg Given 06/16/2023 9:27 AM EDT 81 mg Given 06/15/2023 11:06 PM EDT 81 mg atorvastatin (Lipitor) tablet 80 mg 80 mg, Oral, Daily, First dose on Wed06/16/23 at 0900, Until Discontinued Given 06/17/2023 9:32 AM EDT 80 mg Given 06/16/2023 9:27 AM EDT 80 mg carvedilol (Coreg) tablet 12.5 mg 12.5 mg, Oral, 2 times daily, First dose on Wed06/15/23 at 2230, Until Discontinued, Routine Given 06/17/2023 9:32 AM EDT 12.5 mg Given 06/16/2023 8:27 PM EDT 12.5 mg Given 06/16/2023 9:27 AM EDT 12.5 mg clopidogrel (Plavix) tablet 75 mg 75 mg, Oral, Daily, First dose on Wed06/16/23 at 0900, Until Discontinued, Routine Given 06/17/2023 9:32 AM EDT 75 mg Given 06/16/2023 9:26 AM EDT 75 mg dapagliflozin (Farxiga) tablet 10 mg 10 mg, Oral, Daily, First dose on Wed06/16/23 at 1515, Until Discontinued, RoutineIndications:Left Systolic Heart Failure Given 06/17/2023 9: 31 AM EDT 10 mg Given 06/16/2023 4:22 PM EDT 10 mg dextrose 10 % (D10W) bolus 125 mL 125 mL (12.5 g), Intravenous, Every 15 min PRN, Starting on Wed06/16/23 at 0004, Until Wed06/17/23 at 1715, Administer over 15 Minutes, Routine, POC BG 71 to 89 mg/dL dextrose 10 % (D10W) bolus 125 mL 125 mL (12.5 g), Intravenous, Every 15 min PRN, Starting on Wed06/16/23 at 0004, Until Wed06/17/23 at 1715, Administer over 15 Minutes, Routine, POC BG 51 to 70 mg/dL dextrose 10 % (D10W) bolus 250 mL 250 mL (25 g), Intravenous, Every 15 min PRN, Starting on Wed06/16/23 at 0004, Until Wed06/17/23 at 1715, Administer over 15 Minutes, Routine, POC BG is less than or equal to 50 mg/dL enoxaparin (Lovenox) syringe 40 mg 40 mg, Subcutaneous, Daily, First dose on Wed06/16/23 at 1500, Until Discontinued, Routine Given 06/17/2023 9:32 AM EDT 40 mg Left Lower Abdomen Given 06/16/2023 4:22 PM EDT 40 mg Le ft Lower Abdomen entecavir (Baraclude) tablet 0.5 mg 0.5 mg, Oral, Every other day, First dose on Wed06/16/23 at 0900, Until Discontinued, Routine Given 06/16/2023 9:27 AM EDT 0.5 mg furosemide (Lasix) injection 40 mg 40 mg, Intravenous, Once, 1 dose, On Wed06/15/23 at 1450, STAT Given 06/15/2023 2:55 PM EDT 40 mg furosemide (Lasix) tablet 40 mg 40 mg, Oral, Daily, First dose on Wed06/16/23 at 0900, Until Discontinued, Routine Given 06/17/2023 9:31 AM EDT 40 mg Given 06/16/2023 9:26 AM EDT 40 mg furosemide (Lasix) tablet 40 mg 40 mg, Oral, Once, 1 dose, On Wed06/16/23 at 1715, Routine Given 06/16/2023 5:30 PM EDT 40 mg gabapentin (Neurontin) capsule 300 mg 300 mg, Oral, 3 times daily, First dose on Wed06/15/23 at 2230, Until Discontinued Given 06/17/2023 9:31 AM EDT 300 mg Given 06/16/2023 8:27 PM EDT 300 mg Given 06/16/2023 4:22 PM EDT 300 mg glucagon (human recombinant) injection 1 mg 1 mg, Intramuscular, Every 15 min PRN, Starting on Wed06/16/23 at 0004, Until Wed06/17/23 at 1715, Routine, If patient NPO, lacks IV access, May Give IM and POC BG less than or equal to 70 mg/dL, glucose (Glutose) 40 % oral gel 15 grams of glucose 15 grams of glucose, Sublingual, Every 15 min PRN, Starting on Wed06/16/23 at 0004, Until Wed06/17/23 at 1715, Routine, low blood sugar, POC BG 71 to 89 mg/dL glucose (Glutose) 40 % oral gel 15 grams of glucose 15 grams of glucose, Sublingual, Every 15 min PRN, Starting on Wed06/16/23 at 0004, Until Wed06/17/23 at 1715, Routine, low blood sugar, BG 51?to 70 mg/dL glucose (Glutose) 40 % oral gel 30 grams of glucose 30 grams of glucose, Sublingual, Every 15 min PRN, Starting on Wed06/16/23 at 0004, Until Wed06/17/23 at 1715, Routine, low blood sugar, POC BG is less than or equal to 50 mg/dL heparin (porcine) injection 5,000 Units 5,000 Units, Subcutaneous, Every 8 hours scheduled, First dose on Wed06/15/23 at 2245, Until Discontinued, Routine Given 06/16/2023 5:40 AM EDT 5,000 Units Left Upper Arm (Back ) Given 06/15/2023 11:06 PM EDT 5,000 Units Right Upper Abdomen hydrALAZINE (Apresoline) tablet 50 mg 50 mg, Oral, 3 times daily (0600, 1200 & 1800), First dose on Wed06/16/23 at 0600, Until Discontinued, Routine Given 06/17/2023 12:05 PM EDT 50 mg Given 06/17/2023 5:00 AM EDT 50 mg Given 06/16/2023 5:30 PM EDT 50 mg insulin glargine-yfgn 100 UNIT/ML injection 10 Units 10 Units, Subcutaneous, Nightly, First dose on Wed06/16/23 at 2100, Until Discontinued, Routine Given 06/16/2023 8:27 PM EDT 10 Units Left Lower Abdomen insulin glargine-yfgn 100 UNIT/ML injection 6 Units 6 Units, Subcutaneous, Once, 1 dose, On Wed06/16/23 at 0915, Routine Given 06/16/2023 10:21 AM EDT 6 Units Left Upper Arm (Back ) insulin lispro (Admelog) 100 units/mL injection - Correction - Resistant Dose 0-10 Units, Subcutaneous, 3 times daily with meals, First dose on Wed06/16/23 at 0830, Until Discontinued, Routine Given 06/17/2023 9:34 AM EDT 4 Units Left Lower Abdomen Given 06/16/2023 6:11 PM EDT 2 Units Le ft Lower Abdomen Given 06/16/2023 9:52 AM EDT 4 Units Le ft Upper Arm (Back) insulin lispro (Admelog) injection - Correction - Nighttime Dose 0-3 Units, Subcutaneous, 2 times nightly (2100 & 0300), First dose on Wed06/16/23 at 2100, Until Discontinued, Routine Insulin Lispro (Admelog, HumaLOG) 100 UNIT/ML injection 2 Units 2 Units, Subcutaneous, 3 times daily with meals, First dose on Wed06/16/23 at 1730, Until Discontinued, Routine Given 06/17/2023 1:47 PM EDT 2 Units Left Lower Abdomen Given 06/17/2023 9:34 AM EDT 2 Units Le ft Lower Abdomen Given 06/16/2023 6:11 PM EDT 2 Units Le ft Lower Abdomen Insulin Lispro (Admelog, HumaLOG) 100 UNIT/ML injection 5 Units 5 Units, Subcutaneous, Once, 1 dose, On Wed06/16/23 at 0545, Routine Given 06/16/2023 5:38 AM EDT 5 Units Right Lower Abdomen ipratropium-albuterol (Duo-Neb) 0.5-2.5 mg/3 mL nebulizer solution 3 mL 3 mL, Nebulization, Once, 1 dose, On Wed06/15/23 at 1325, STAT Given 06/15/2023 1:35 PM EDT 3 mL ipratropium-albuterol (Duo-Neb) 0.5-2.5 mg/3 mL nebulizer solution 3 mL 3 mL, Nebulization, Every 4 hours PRN, Starting on Wed06/15/23 at 2227, Until Wed06/17/23 at 1715, Routine, wheezing, shortness of breath isosorbide dinitrate (Isordil) tablet 40 mg 40 mg, Oral, 3 times daily (0600, 1200 & 1800), First dose on Wed06/16/23 at 0600, Until Discontinued Given 06/17/2023 12:05 PM EDT 40 mg Given 06/17/2023 5:00 AM EDT 40 mg Given 06/16/2023 5:30 PM EDT 40 mg magnesium sulfate IVPB 2 g 2 g, Intravenous, Once, 1 dose, On Wed06/15/23 at 1325, STAT New Bag 06/15/2023 1:53 PM EDT 2 g 25 mL/hr mineral oil-hydrophilic petrolatum (Aquaphor) ointment 1 Application Topical, 2 times daily, First dose on Wed06/16/23 at 1245, Until Discontinued, Routine Given 06/17/2023 9:32 AM EDT 1 Application Given 06/16/2023 8:28 PM EDT 1 Application Given 06/16/2023 4:23 PM EDT 1 Application mometasone-formoterol (Dulera 100) 100-5 MCG/ACT inhaler 2 puff 2 puff, Inhalation, 2 times daily, First dose on Wed06/15/23 at 2230, Until Discontinued, Routine Given 06/17/2023 9:32 AM EDT 2 puffs Given 06/16/2023 8:27 PM EDT 2 puffs polyethylene glycol (Miralax) packet 17 g 17 g, Oral, Daily, First dose on Wed06/15/23 at 2230, Until Discontinued, Routine Povidone-Iodine 5 % swab solution 1 Swab Nasal, Daily, 5 doses, First dose on Wed06/16/23 at 0900, Last dose on Wed06/20/23 at 0900, Routine Given 06/17/2023 9:35 AM EDT 1 Swab Given 06/16/2023 12:20 PM EDT 1 Swab senna (Senokot) tablet 17.2 mg 17.2 mg (2 tablet), Oral, Nightly, First dose on Wed06/15/23 at 2230, Until Discontinued, Routine sodium chloride 0.9 % flush 10 mL 10 mL, Intravenous, Every 12 hours, First dose on Wed06/15/23 at 2230, Until Discontinued, Routine Given 06/17/2023 9:35 AM EDT 10 mL Given 06/16/2023 9:38 PM EDT 10 mL Given 06/16/2023 12:21 PM EDT 10 mL sodium chloride 0.9 % flush 10 mL 10 mL, Intravenous, As needed, Starting on Wed06/15/23 at 2224, Until Wed06/17/23 at 1715, Routine, line care Tiotropium [place] Monohydrate (Spiriva Respimat) 2.5 MCG/ACT inhaler 2 puff 2 puff, Inhalation, Daily, First dose on Wed06/15/23 at 2230, Until Discontinued Given 06/17/2023 9:32 AM EDT 2 puffs Given 06/16/2023 9:27 AM EDT 2 puffs documented in this encounter Active and Recently Administered Medications Times are shown in EDT. Scheduled Medication Order 06/15/2023 06/16/2023 06/17/2023 aspirin chewable tablet 81 mg 81 mg, Oral, Daily, First dose on Wed06/15/23 at 2230, Until Discontinued, Routine 2305 (Given - Provider: Dayami Adams RN) 926 (Given - Provider: Lia Lemus RN)2304 (Override Pull - Provider: Dayami Adams RN) 09 (Given - Provider: Lia Lemus RN) atorvastatin (Lipitor) tablet 80 mg 80 mg, Oral, Daily, First dose on Wed06/16/23 at 0900, Until Discontinued 926 (Given - Provider: Lia Lemus RN) 09 (Given - Provider: Lia Lemus RN) carvedilol (Coreg) tablet 12.5 mg 12.5 mg, Oral, 2 times daily, First dose on Wed06/15/23 at 2230, Until Discontinued, Routine 2305 (Given - Provider: Dayami Adams RN) 926 (Given - Provider: Lia Lemus RN)2026 (Given - Provider: Juliette Ochoa)2304 (Override Pull - Provider: Dayami Adams RN) 0932 (Given - Provider: Lia Lemus RN) clopidogrel (Plavix) tablet 75 mg 75 mg, Oral, Daily, First dose on Wed06/16/23 at 0900, Until Discontinued, Routine 925 (Given - Provider: Lia Lemus RN) 0932 (Given - Provider: Lia Lemus RN) dapagliflozin (Farxiga) tablet 10 mg 10 mg, Oral, Daily, First dose on Wed06/16/23 at 1515, Until Discontinued, Routine 162 (Given - Provider: Lia Lemus RN) 0931 (Given - Provider: Lia Lemus RN) enoxaparin (Lovenox) syringe 40 mg 40 mg, Subcutaneous, Daily, First dose on Wed06/16/23 at 1500, Until Discontinued, Routine 1621 (Given - Provider: Lia Lemus RN) 32 (Given - Provider: Lia Lemus RN) entecavir (Baraclude) tablet 0.5 mg 0.5 mg, Oral, Every other day, First dose on Wed06/16/23 at 0900, Until Discontinued, Routine 926 (Given - Provider: Lia Lemus RN) furosemide (Lasix) injection 40 mg (COMPLETED) 40 mg, Intravenous, Once, 1 dose, On Wed06/15/23 at 1450, STAT 1455 (Given - Provider: Raji Lakhani RN) furosemide (Lasix) tablet 40 mg 40 mg, Oral, Daily, First dose on Wed06/16/23 at 0900, Until Discontinued, Routine 925 (Given - Provider: Lia Lemus RN) 930 (Given - Provider: Lia Lemus RN) furosemide (Lasix) tablet 40 mg (COMPLETED) 40 mg, Oral, Once, 1 dose, On Wed06/16/23 at 1715, Routine 1730 (Given - Provider: Lia Lemus RN) gabapentin (Neurontin) capsule 300 mg 300 mg, Oral, 3 times daily, First dose on Wed06/15/23 at 2230, Until Discontinued 2306 (Given - Provider: Dayami Adams RN) 926 (Given - Provider: Lia Lemus RN)1621 (Given - Provider: Lia Lemus RN)2026 (Given - Provider: Juliette Ochoa)2305 (Override Pull - Provider: Dayami Adams RN) 0931 (Given - Provider: Lia Lemus RN)1600 (Canceled Entry - Provider: Automatic Discharge Provider - Comment: Automatically canceled at discontinue of medication order) heparin (porcine) injection 5,000 Units (CANCELED) 5,000 Units, Subcutaneous, Every 8 hours scheduled, First dose on Wed06/15/23 at 2245, Until Discontinued, Routine 2305 (Override Pull - Provider: Dayami Adams RN)2306 (Given - Provider: Dayami Adams RN) 0540 (Given - Provider: Miranda Lee RN)1417 (Not Given - Provider: Lia Lemus RN - Reason: Order changed) hydrALAZINE (Apresoline) tablet 50 mg 50 mg, Oral, 3 times daily (0600, 1200 & 1800), First dose on Wed06/16/23 at 0600, Until Discontinued, Routine 0538 (Given - Provider: Miranda Lee RN)1220 (Given - Provider: Pat Davalos)1730 (Given - Provider: Lia Lemus RN) 0500 (Given - Provider: Juliette Ochoa)1205 (Given - Provider: Lia Lemus RN) insulin glargine-yfgn 100 UNIT/ML injection 10 Units 10 Units, Subcutaneous, Nightly, First dose on Wed06/16/23 at 2100, Until Discontinued, Routine 2026 (Given - Provider: Juliette Ochoa) insulin glargine-yfgn 100 UNIT/ML injection 6 Units (COMPLETED) 6 Units, Subcutaneous, Once, 1 dose, On Wed06/16/23 at 0915, Routine 1021 (Given - Provider: Pat Davalos) insulin lispro (Admelog) 100 units/mL injection - Correction - Resistant Dose 0-10 Units, Subcutaneous, 3 times daily with meals, First dose on Wed06/16/23 at 0830, Until Discontinued, Routine 0952 (Given - Provider: Lia Lemus RN)1343 (Not Given - Provider: Lia Lemus RN - Reason: Order parameters not met)1811 (Given - Provider: Lia Lemus RN) 0934 (Given - Provider: Lia Lemus RN)1318 (Not Given - Provider: Lia Lemus RN - Reason: Order parameters not met) insulin lispro (Admelog) injection - Correction - Nighttime Dose 0-3 Units, Subcutaneous, 2 times nightly (2100 & 0300), First dose on Wed06/16/23 at 2100, Until Discontinued, Routine 2022 (Not Given - Provider: Juliette Ochoa - Reason: Order parameters not met) 020 (Not Given - Provider: Juliette Ochoa - Reason: Order parameters not met) Insulin Lispro (Admelog, HumaLOG) 100 UNIT/ML injection 2 Units 2 Units, Subcutaneous, 3 times daily with meals, First dose on Wed06/16/23 at 1730, Until Discontinued, Routine 1810 (Given - Provider: Lia Lemus RN) 0934 (Given - Provider: Lia Lemus RN)1347 (Given - Provider: Lia Lemus RN) Insulin Lispro (Admelog, HumaLOG) 100 UNIT/ML injection 5 Units (COMPLETED) 5 Units, Subcutaneous, Once, 1 dose, On Wed06/16/23 at 0545, Routine 0538 (Given - Provider: Miranda Lee RN) ipratropium-albuterol (Duo-Neb) 0.5-2.5 mg/3 mL nebulizer solution 3 mL (COMPLETED) 3 mL, Nebulization, Once, 1 dose, On Wed06/15/23 at 1325, STAT 1335 (Given - Provider: Azalia Ridley) isosorbide dinitrate (Isordil) tablet 40 mg 40 mg, Oral, 3 times daily (0600, 1200 & 1800), First dose on Wed06/16/23 at 0600, Until Discontinued 0538 (Given - Provider: Miranda Lee RN)1220 (Given - Provider: Pat Davalos)1730 (Given - Provider: Lia Lemus RN) 0500 (Given - Provider: Juliette Ochoa)1205 (Given - Provider: Lia Lemus RN) magnesium sulfate IVPB 2 g (COMPLETED) 2 g, Intravenous, Once, 1 dose, On Wed06/15/23 at 1325, STAT 1353 (New Bag - Provider: Linda Ng RN)1723 (Stopped - Provider: Linda Ng RN) mineral oil-hydrophilic petrolatum (Aquaphor) ointment 1 Application Topical, 2 times daily, First dose on Wed06/16/23 at 1245, Until Discontinued, Routine 1623 (Given - Provider: Lia Lemus RN)2027 (Given - Provider: Juliette Ochoa) 0932 (Given - Provider: Lia Lemus RN) mometasone-formoterol (Dulera 100) 100-5 MCG/ACT inhaler 2 puff 2 puff, Inhalation, 2 times daily, First dose on Wed06/15/23 at 2230, Until Discontinued, Routine 0803 (Not Given - Provider: Lia Lemus RN - Reason: Unreviewed Transfer Orders)1504 (Not Given - Provider: Lia Lemus RN - Reason: Medication not available)2026 (Given - Provider: Juliette Ochoa) 0932 (Given - Provider: Lia Lemus RN) polyethylene glycol (Miralax) packet 17 g 17 g, Oral, Daily, First dose on Wed06/15/23 at 2230, Until Discontinued, Routine 2306 (Not Given - Provider: Dayami Adams RN - Reason: Patient/family refused) 0926 (Not Given - Provider: Lia Lemus RN - Reason: Patient/family refused) 0935 (Not Given - Provider: Lia Lemus RN - Reason: Patient/family refused) Povidone-Iodine 5 % swab solution 1 Swab Nasal, Daily, 5 doses, First dose on Wed06/16/23 at 0900, Last dose on Wed06/20/23 at 0900, Routine 1220 (Given - Provider: Pat Davalos) 0935 (Given - Provider: Lia Lemus RN) senna (Senokot) tablet 17.2 mg 17.2 mg (2 tablet), Oral, Nightly, First dose on Wed06/15/23 at 2230, Until Discontinued, Routine 2307 (Not Given - Provider: Dayami Adams RN - Reason: Patient/family refused) 2012 (Not Given - Provider: Juliette Ochoa - Reason: Patient/family refused) sodium chloride 0.9 % flush 10 mL(Linked Group 1) 10 mL, Intravenous, Every 12 hours, First dose on Wed06/15/23 at 2230, Until Discontinued, Routine 2319 (Given - Provider: Dayami Adams RN) 1221 (Given - Provider: Pat Davalos)2138 (Given - Provider: Juliette Ochoa) 0935 (Given - Provider: Lia Lemus RN) Tiotropium [place] Monohydrate (Spiriva Respimat) 2.5 MCG/ACT inhaler 2 puff 2 puff, Inhalation, Daily, First dose on Wed06/15/23 at 2230, Until Discontinued 0803 (Not Given - Provider: Lia Lemus, JAME - Reason: Unreviewed Transfer Orders)0927 (Given - Provider: Lia Lemus RN) 0932 (Given - Provider: Lia Lemus RN) PRN Medication Order 06/15/2023 06/16/2023 06/17/2023 acetaminophen (Tylenol) tablet 650 mg 650 mg, Oral, Every 4 hours PRN, Starting on Wed06/15/23 at 2225, Until Wed06/17/23 at 1715, Routine, mild pain, fever 0352 (Given - Provider: Kevin Alamo RN) dextrose 10 % (D10W) bolus 125 mL(Linked Group 2) 125 mL (12.5 g), Intravenous, Every 15 min PRN, Starting on Wed06/16/23 at 0004, Until Wed06/17/23 at 1715, Administer over 15 Minutes, Routine, POC BG 71 to 89 mg/dL dextrose 10 % (D10W) bolus 125 mL(Linked Group 3) 125 mL (12.5 g), Intravenous, Every 15 min PRN, Starting on Wed06/16/23 at 0004, Until Chelita 06/17/23 at 1715, Administer over 15 Minutes, Routine, POC BG 51 to 70 mg/dL dextrose 10 % (D10W) bolus 250 mL(Linked Group 4) 250 mL (25 g), Intravenous, Every 15 min PRN, Starting on Wed06/16/23 at 0004, Until Chelita 06/17/23 at 1715, Administer over 15 Minutes, Routine, POC BG is less than or equal to 50 mg/dL glucagon (human recombinant) injection 1 mg 1 mg, Intramuscular, Every 15 min PRN, Starting on Wed06/16/23 at 0004, Until Wed06/17/23 at 1715, Routine, If patient NPO, lacks IV access, May Give IM and POC BG less than or equal to 70 mg/dL, glucose (Glutose) 40 % oral gel 15 grams of glucose(Linked Group 2) 15 grams of glucose, Sublingual, Every 15 min PRN, Starting on Wed06/16/23 at 0004, Until Wed06/17/23 at 1715, Routine, low blood sugar, POC BG 71 to 89 mg/dL glucose (Glutose) 40 % oral gel 15 grams of glucose(Linked Group 3) 15 grams of glucose, Sublingual, Every 15 min PRN, Starting on Wed06/16/23 at 0004, Until Wed06/17/23 at 1715, Routine, low blood sugar, BG 51?to 70 mg/dL glucose (Glutose) 40 % oral gel 30 grams of glucose(Linked Group 4) 30 grams of glucose, Sublingual, Every 15 min PRN, Starting on Wed06/16/23 at 0004, Until Wed06/17/23 at 1715, Routine, low blood sugar, POC BG is less than or equal to 50 mg/dL ipratropium-albuterol (Duo-Neb) 0.5-2.5 mg/3 mL nebulizer solution 3 mL 3 mL, Nebulization, Every 4 hours PRN, Starting on Wed06/15/23 at 2227, Until Wed06/17/23 at 1715, Routine, wheezing, shortness of breath sodium chloride 0.9 % flush 10 mL(Linked Group 1) 10 mL, Intravenous, As needed, Starting on Wed06/15/23 at 2224, Until Wed06/17/23 at 1715, Routine, line care Linked Groups Order Group 1: Insert peripheral IV (COMPLETED) Once, On Wed06/15/23 at 222, For 1 occurrence And Saline lock IV (COMPLETED) Once, On Wed06/15/23 at 2224, For 1 occurrence And sodium chloride 0.9 % flush 10 mLJump to med 10 mL, Intravenous, Every 12 hours, First dose on Wed06/15/23 at 2230, Until Discontinued, Routine And sodium chloride 0.9 % flush 10 mLJump to med 10 mL, Intravenous, As needed, Starting on Wed06/15/23 at 2224, Until Wed06/17/23 at 1715, Routine, line care Group 2: glucose (Glutose) 40 % oral gel 15 grams of glucoseJump to med 15 grams of glucose, Sublingual, Every 15 min PRN, Starting on Wed06/16/23 at 0004, Until Wed06/17/23 at 1715, Routine, low blood sugar, POC BG 71 to 89 mg/dL Or dextrose 10 % (D10W) bolus 125 mLJump to med 125 mL (12.5 g), Intravenous, Every 15 min PRN, Starting on Wed06/16/23 at 0004, Until Wed06/17/23 at 1715, Administer over 15 Minutes, Routine, POC BG 71 to 89 mg/dL Group 3: glucose (Glutose) 40 % oral gel 15 grams of glucoseJump to med 15 grams of glucose, Sublingual, Every 15 min PRN, Starting on Wed06/16/23 at 0004, Until Wed06/17/23 at 1715, Routine, low blood sugar, BG 51?to 70 mg/dL Or dextrose 10 % (D10W) bolus 125 mLJump to med 125 mL (12.5 g), Intravenous, Every 15 min PRN, Starting on Wed06/16/23 at 0004, Until Wed06/17/23 at 1715, Administer over 15 Minutes, Routine, POC BG 51 to 70 mg/dL Group 4: dextrose 10 % (D10W) bolus 250 mLJump to med 250 mL (25 g), Intravenous, Every 15 min PRN, Starting on Wed06/16/23 at 0004, Until Wed06/17/23 at 1715, Administer over 15 Minutes, Routine, POC BG is less than or equal to 50 mg/dL Or glucose (Glutose) 40 % oral gel 30 grams of glucoseJump to med 30 grams of glucose, Sublingual, Every 15 min PRN, Starting on Wed06/16/23 at 0004, Until Wed06/17/23 at 1715, Routine, low blood sugar, POC BG is less than or equal to 50 mg/dL documented in this encounter Additional Health Concerns [...] documented as of this encounter Care Teams [employer] Relationship Specialty Start [place] [address] PCP - General Family Medicine 06/14/23 06/17/23 documented as of this encounter
--- OUTSIDE RECORDS SUMMARY | 2024-02-23 18:56 | XMS_ITS | Encounter Summary ---
Author Organization Healthcare Address [address] [place] [address] Care Team Providers Care Physical Security Specialist Name Role Phone Erik Hurley MD Primary Care Provider [phone] Encounter Details Date Type Department Care Team (Late st Contact Info) Description 03/26/2023 Telephone [facility] Inpatient [address] [place] [address] Laura Singleton CV TELE-PROGRESSIVE Social History Tobacco Use Types Packs/Day Years Used Date Smoking Tobacco: Every Day Cigarettes Smokeless Tobacco: Never Alcohol Use Standard Drinks/Week Comments No 0 (1 standard drink = 0.6 oz pur e alcohol) Humiliation, Afraid, Rape, and Kick questionnair e Answer Date Recorded Within the last year, have y ou been afraid of your partner or ex-partner? No 03/24/2023 Within the last year, have y ou been humiliated or emotionally abused in other ways by your partner or ex-partner? No Within the last year, have y ou been kicked, hit, slapped, or otherwise physically hurt by your partner or ex-partner? No 03/24/2023 Within the last year, have y ou been raped or forced to have any kind of sexual activity by your partner or ex-partner? No 03/24/2023 Overall Financial Resource Strain (CARDIA) Answe r [...] the money to buy more. Never true 03/24/20 Within the past 12 months, t he food you bought just didn't last and you didn't have money to get more. Never true 03/24/2023 PRAPARE - Transportation Answer Date Re corded In the past 12 months, has l ack of transportation kept you from medical appointments or from getting medications? No 02/27 In the past 12 months, has l ack of transportation kept you from meetings, work, or from getting things needed for daily living? No 03/24/2023 Housing Stability Vital Sign Answer Raf e Recorded In the last 12 months, was t here a time when you were not able to pay the mortgage or rent on time? No 03/24/2023 In the last 12 months, how many places have you lived? 2 03/24/2023 In the last 12 months, was t here a time when you did not have a steady place to sleep or slept in a mcc (including now)? No 03/24/2023 CAGE ASSESSMENT Answer Date Recorded Cage unable [...] drink first t erin in the morning ([employer]) to steady your nerves or to get rid of a hangover? 0 02/05/2023 CAGE Questionnaire Score 0 023 Utilities Answer Date Recorded In the past 12 months has th e electric, gas, oil, or water company threatened to shut off services in your home? No 03/24/2023 Sex and Gender Information Value Date Recorded Sex Assigned at Not on file Legal Sex Male 8:15 PM EDT Gender Identity Not on file Sexual Orientation Not on file documented as of this encounter Plan of Treatment Upcoming Encounters Date Type Department Care Team ([facility] Contact Info) Description 03/07/2024 1:40 PM EST Office Visit [facility] Kake Mcgraw [address], [address] [place] [address] Naeem Blunt MD [address] [place] [address] documented as of this encounter Visit Diagnoses Not on filedocumented in this encounter Additional Health Concerns Infection Onset Date Last Indicated Resolved Time MRSA Comment:Positive blood culture 03/03/2019 01/30/2024 Assessment Noted Time A Body Mass Index follow-up plan has been documented for the patient 03/25/2023 11:58 AM EST documented as of this encounter Care Teams Physical Security Specialist Relationship Specialty Start Date End Date Erik Hurley MD [address] [place] [address] PCP - General 03/24/23 06/13/23 documented as of this encounter
--- OUTSIDE RECORDS SUMMARY | 2024-02-23 18:56 | XMS_ITS | Encounter Summary ---
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 Role Phone Erik Hurley MD Primary Care Provider [phone] Reason for Referral * Home Health (Routine) - Authorized Specialty Diagnoses / Procedures Referred By Neno noel Referred To Contact Home Health Services Diagnoses Acute decompensated heart failure (CMS/HCC) Jonny Broussard MD [address] [place] [address] Phone: tel: fax: Referral ID Status Reason Start Date Expiration Date Visits Requested Visits Authorized [id number] Authorized Consult and Treat 12/25/2023 06/25/2025 999 999 Reason for Visit * Reason Comments Swelling * Auth/Cert (Routine) Specialty Diagnoses / Procedures Referred By Neno noel Referred To Contact Diagnoses Acute decompensated heart failure (CMS/HCC) Tian Mattson MD [address] [place] [address] Phone: tel: fax: [facility] Inpatient [address] [place] [address] Phone: tel: Referral ID Status Reason Start Date Expiration Date Visits Re quested Visits Authorized [id number] 1 1 Encounter Details Date Type Department Care Team (Latest Contact Info) Description 12/16/2023 5:50 PM EDT - 12/25/2023 2:06 PM EDT Hospital Encounter [facility] Inpatient [address] [place] [address] Carmencita Slaughter MD [address] [place] [address] Jakob Phipps MD [address] [place] [address] Tian Mattson MD [address] [place] [address] Jonny Broussard MD [address] [place] [address] Acute on chronic systolic congestive [...] place to sleep or slept in a snf (including now)? 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 0 02/05/2023 CAGE Questionnaire Score 0 023 Utilities Answer Date Recorded In the past 12 months has th e [employer], gas, oil, or water company threatened to shut off services in your home? No 12/17/2023 Sex and Gender Information Value Date Recorded Sex Assigned at Not on file Legal Sex Male 8:15 PM EDT Gender Identity Not on file Sexual Orientation Not on file documented as of this encounter Last Filed Vital Signs Vital Sign Reading Time Taken Comments Blood Pressure 150/87 12/25/2023 8:20 AM EDT Pulse 71 12/25/2023 8:20 AM EDT Temperature 36.6 ??C (97.9 ??F) 12/25/2023 8:20 AM ED T Respiratory Rate 13 12/25/2023 3:06 AM EDT Oxygen Saturation 100% 12/25/2023 8:20 AM EDT Inhaled Oxygen Concentration - - Weight 87.3 kg (192 lb 7.4 oz) 12/25/2023 5:32 A M EDT Height 182.9 cm (6') 12/20/2023 9:25 AM EDT Body Mass Index 26.1 12/20/2023 9:25 AM EDT documented in this encounter Discharge Instructions * Discharge Instructions* Robert Nevarez MD - 12/25/2023 8:10 AM EDT Medications: -Please start taking your clopidogrel (Plavix) 75 mg daily. -Pleast start taking losartan (Cozaar) 25 mg daily. -Please start taking dapagliflozin (Farxiga) 10 mg daily. -Please start taking bumetanide (Bumex) 2 mg daily. This is your new water pill, and will replace your Lasix. Do not continue taking your Lasix. If you notice increased swelling, take an extra dose of your Bumex for two days. -Please stop taking your hydralazine and isosorbide dinitrate. Follow-Up: -Please follow-up with our Transitions of Care clinic at [facility]. If you do not hear about your appointment by Wednesday, please call the [facility] at [phone] Call your Primary Care Provider/Return to the Emergency Department: -For any chest pain or pressure -For any difficulty breathing documented in this encounter Medications at Time of Discharge albuterol 108 (90 Base) MCG/ACT inhaler Inhale 2 puffs 4 (four) times a day if needed for wheezing. dapagliflozin (Farxiga) 10 MG tablet Take 1 tablet (10 mg) by mouth 1 (one) time each day. 90 tablet 1 12/25/2023 metoprolol succinate XL (Toprol-XL) 50 MG 24 hr tablet Take 1 tablet (50 mg) by mouth 1 (one) time each day. Do not crush or chew. 90 tablet 1 12/25/2023 nitroglycerin (Nitrostat) 0.[address] 1 tablet (0.4 mg) under the tongue every 5 (five) minutes if needed for chest pain. aspirin 81 MG chewable tablet Chew 1 tablet (81 mg) 1 (one) time each day. 30 tablet 11 02/12/2023 4 bumetanide (Bumex) 2 MG tablet Take 1 tablet (2 mg) by mouth 1 (one) time each day. 90 tablet 1 12/25/2023 4 clopidogrel (Plavix) 75 MG tablet Take 1 tablet (75 mg) by mouth 1 (one) time each day. 90 tablet 1 12/25/2023 4 gabapentin (Neurontin) 600 MG tablet Take 1 tablet (600 mg) by mouth 3 (three) times a day. 4 insulin detemir (Levemir) 100 UNIT/ML injection pen Inject 7-8 Units under the skin every night. 06/12/2020 4 losartan (Cozaar) 25 MG tablet Take 1 tablet (25 mg) by mouth 1 (one) time each day. 90 tablet 1 12/25/2023 4 mometasone-formo terol (Dulera 100) 100-5 MCG/ACT inhaler Inhale 2 puffs 2 (two) times a day. Rinse mouth with water after use to reduce aftertaste and incidence of candidiasis. Do not swallow. 13 g 2 06/17/2023 4 Umeclidinium [place] (Incruse Ellipta) 62.5 MCG/ACT aerosol powder Inhale 1 Inhalation 1 (one) time each day. 7 each 1 02/12/2023 4 documented as of this encounter Miscellaneous Notes * Discharge Summary - Robert Nevarez MD - 12/25/2023 11:15 AM EDT Hospitalization Admit Date/Time: 12/16/2023 5:50 PM Admitting Attending: Tian Mattson Discharge Date: 12/25/2023 Discharge Attending Physician: Jonny Broussard MD PCP name and Address: Erik Hurley MD [address] [facility] [address] Referring provider name and address: No referring provider defined for this encounter. Chief Concern, Brief History of Present Illness, and Hospital Course Robert Hurley is a 58 y.o. male with a past medical history of HFrEF, suspected COPD, CAMACHO cirrhosis, DM2, CKD4, prior L AKA, who presented to ED on 12/15 with worsening SOB and scrotal edema. Subsequently admitted to Cards for ADHF. #Decompensated HFrEF - Patient was last admitted to Cardiology in May of this year 06/14-. At that point in time was noted to have been admitted in February of 2023 with acute HF exacerbation. In May was treated for acute on chronic hypoxic respiratory failure and discharged with follow-up the high-risk discharge clinic. More recently, patient presented to [facility] with symptoms of acute heart failure exacerbation. Was transferred to [facility] from the facility. Was admitted at [facility] between 10/28 through 11/07 of this year. As per [facility] notes, admitted to [facility] initially for heart failure exacerbation and upon further evaluation had an EF of 20-25% was transferred to our facility for AICD evaluation . At [facility], pt was noted to have (1) EF of 15% , (2) evidence of aortic stenosis with concern for low-flow low gradient AAS, (3) was discharged with a lifevest with outpatient follow up for AICD. On interview, patient reports that since discharge he has been experiencing worsening shortness of breath, worsening edema, reports that he is unsure how he lost his life vest. Reports that he lives by himself at home, uses a wheelchair at home, is on 2-3 L of oxygen at home. - Labs in the ED for were significant a lactate of 1, potassium elevated to 5.1, initial troponin 98, repeat 94 with a delta of 4, NT proBNP at 64,000, chest x- ray with signs of volume overload and bilateral pleural effusions. After admission patient was initially diuresed diuresed with Bumex drip,however after one day this was transitioned to Bumex 2 mg IV bid until 12/20. On 12/20 he was transitioned to oral diuresis with Bumex 2mg bid. Throughout his hospitalization patient did complain of some scrotal edema that was causing him significant difficulty with movement, however this had resolved by the day of discharge. - On the day of discharge patient remained afebrile, HDS, saturating well on 2L which is what he wears at home. He was successfully diuresed with a net negative fluid balance of over 23L. His home medications were changed with an increased dose of metoprolol to 50 mg daily, change in his daily diuretic from Lasix 40 mg daily to Bumex 2 mg daily, discontinuation of his hydralazine IDN to losartan 25 mg daily, and transition to losartan 25 mg daily. Patient was educated on these changes and MONIK follow-up was arranged for him with date and time of appointment to be determined. Surgeries and Procedures Medication List .. albuterol 108 (90 Base) MCG/ACT inhaler Inhale 2 puffs 4 (four) times a day if needed for wheezing. aspirin 81 MG chewable tablet Chew 1 tablet (81 mg) 1 (one) time each day. bumetanide 2 MG tablet Commonly known as: Bumex Take 1 tablet (2 mg) by mouth 1 (one) time each day. clopidogrel 75 MG tablet Commonly known as: Plavix Take 1 tablet (75 mg) by mouth 1 (one) time each day. dapagliflozin 10 MG tablet Commonly known as: Farxiga Take 1 tablet (10 mg) by mouth 1 (one) time each day. gabapentin 600 MG tablet Commonly known as: Neurontin Take 1 tablet (600 mg) by mouth 3 (three) times a day. Incruse Ellipta 62.5 MCG/ACT aerosol powder Generic drug: Umeclidinium [place] Inhale 1 Inhalation 1 (one) time each day. insulin detemir 100 UNIT/ML injection pen Commonly known as: Levemir Inject 13 Units under the skin every night. losartan 25 MG tablet Commonly known as: Cozaar Take 1 tablet (25 mg) by mouth 1 (one) time each day. metoprolol succinate XL 50 MG 24 hr [...] (five) minutes if needed for chest pain. Where to Get Your Medications These medications were sent to [facility] - [place], [place] - [address] [facility] [id number] bumetanide 2 MG tablet clopidogrel 75 MG tablet dapagliflozin 10 MG tablet losartan 25 MG tablet metoprolol succinate XL 50 MG 24 hr tablet Discharge Diagnosis Medical Problems Active and Resolved Hospital Problems Hospital * (Principal) Acute decompensated heart failure (CMS/HCC) Post Discharge Instructions Medications: -Please start taking your clopidogrel (Plavix) 75 mg daily. -Pleast start taking losartan (Cozaar) 25 mg daily. -Please start taking dapagliflozin (Farxiga) 10 mg daily. -Please start taking bumetanide (Bumex) 2 mg daily. This is your new water pill, and will replace your Lasix. Do not continue taking your Lasix. If you notice increased swelling, take an extra dose of your Bumex for two days. -Please stop taking your hydralazine and isosorbide dinitrate. Follow-Up: -Please follow-up with our Transitions of Care clinic at [facility]. If you do not hear about your appointment by Wednesday, please call the [facility] at [phone] Call your Primary Care Provider/Return to the Emergency Department: -For any chest pain or pressure -For any difficulty breathing Outpatient Follow-Up No future appointments. Test Results Pending At Discharge None Pertinent Physical Exam At Time of Discharge Physical Exam Vitals reviewed. Constitutional: General: He is not in acute distress. Appearance: Normal appearance. HENT: Nose: Nose normal. Mouth/Throat: Mouth: Mucous membranes are moist. Pharynx: Oropharynx is clear. Eyes: General: No scleral icterus. Extraocular Movements: Extraocular movements intact. Conjunctiva/sclera: Conjunctivae normal. Cardiovascular: Rate and Rhythm: Normal rate and regular rhythm. Heart sounds: Normal heart sounds. No murmur heard. Pulmonary: Effort: Pulmonary effort is normal. Breath sounds: Normal breath sounds. Abdominal: General: Abdomen is flat. Bowel sounds are normal. Palpations: Abdomen is soft. Skin: General: Skin is warm and dry. Capillary Refill: Capillary refill takes less than 2 seconds. Neurological: General: No focal deficit present. Mental Status: He is alert and oriented to person, place, and time. Psychiatric: Mood and Affect: Mood normal. Behavior: Behavior normal. Thought Content: Thought content normal. Discharge Disposition/Condition Disposition: Home Condition: Stable (s/sx potential problems absent or manageable) I spent >30 minutes of patient care and instruction time in preparation for this discharge. Cosigned by Jonny Broussard MD at 12/25/2023 2:46 PM EDT Associated attestation - Jonny Broussard MD - 12/25/2023 2:46 PM EDT I saw and evaluated the patient with the resident/fellow. I discussed the case with the resident/fellow and agree with the findings and plan as documented. 58 yo M with history of HFrEF (20-25%) reportedly due to ischemic cardiomyopathy, CAD s/p remote PCI, suspected COPD, CAMACHO cirrhosis, T2DM, CKD4, and prior L AKA who presented to emergency department on Dec 15 with acute on chronic decompensated heart failure. Of note, he has multiple prior admissions for heart failure, most recently in October at [facility]. He was discharged home from that admission with LifeVest, which he has since lost. Suspected etiology of current decompensation is poor compliance with home medication regimen. Echocardiogram showed LVEF 33% and mild-moderate aortic stenosis (no concern for LFLG severe as had previously been mentioned). He ultimately responded well to IV diuresis with Bumetanide and by day of discharge appeared near euvolemic (dry weight 192 lbs, down from admission weight 227 lbs). His home GDMT regimen was adjusted as outlined below. His baseline CKD remained stable. Discussed possibility of permanent ICD placement for primary pr evention but agreed with patient that he would have a prolonged period of sustained compliance withGDMT before re-considering this as an outpatient. He was evaluated by PT/OT teams throughout admission who recommended subacute rehab placement, however patient refused this and preferred to discharge home. Medication Changes: Changed Lasix to Bumetanide 2mg once daily with second daily dose prn for swelling Started Dapaglifozin 10mg Stopped Hydralazine/Isordil due to compliance issues with tid dosing Started Losartan 25mg Increased Metoprolol XL to 25mg Follow-Up: Transitions of care clinic within 1-2 weeks for symptom check and diuretic titration * Tamara Downing RN - 12/25/2023 10:31 AM EDT Images from the original note were not included. [id number] Clopidogrel Brand Name(s): Plavix??; also available generically IMPORTANT WARNING: Clopidogrel must be changed to an active form in your body so that it can treat your condition. Some people do not change clopidogrel to its active form in the body as well as other people. Because the medication does not work as well in these people, they may be at a higher risk of having a heart attack or stroke. There are tests available to identify people who have trouble changing clopidogrelto an active form. Talk to your doctor about whether you should be tested. If you are found to havedifficulty converting clopidogrel to its active form, your doctor may change your dose of clopidogrel or tell you not to take clopidogrel. Your doctor or pharmacist will give you the event sales representative's patient information sheet (Medication Guide) when you begin treatment with clopidogrel and each time you refill your prescription. Read the information carefully and ask your doctor or pharmacist if you have any questions. You can also visit the Food and Drug Administration (FDA) website (https://www.fda.gov/Drugs/DrugSafety/yuh371994.htm) or the event sales representative's website to obtain the Medication Guide. Talk to your doctor about the risks of taking clopidogrel. WHY is this medicine prescribed? Clopidogrel is used alone or with aspirin to prevent serious or life-threatening problems with the heart and blood vessels in people who have had a stroke, heart attack, or severe chest pain. This includes people who have percutaneous coronary intervention (PCI; angioplasty; a type of heart surgery) that may involve inserting coronary stents (metal tubes surgically placed in clogged blood vesselsto improve blood flow) or who have coronary artery bypass grafting (CABG; a type of heart surgery).Clopidogrel is also used to prevent serious or life-threatening problems with the heart and blood vessels in people who have peripheral arterial disease (poor circulation in the blood vessels that supply blood to the legs). Clopidogrel is in a class of medications called antiplatelet medications. It works by preventing platelets (a type of blood cell) from collecting and forming clots that may cause a heart attack or stroke. HOW should this medicine be used? Clopidogrel comes as a tablet to take by mouth. It is usually taken once a day with or without food. Take clopidogrel at around the same time every day. Follow the directions on your prescription label carefully, and ask your doctor or pharmacist to explain any part you do not understand. Take clopidogrel exactly as directed. Do not take more or less of it or take it more often than prescribed byyour doctor. Clopidogrel will help prevent serious problems with your heart and blood vessels only as long as you take the medication. Continue to take clopidogrel even if you feel well. Do not stop taking clopidogrel without talking to your doctor. If you stop taking clopidogrel, there is a higher risk that you may have a heart attack or stroke. If you have a stent, there is also a higher risk that you coulddevelop a blood clot in the stent if you stop taking clopidogrel too soon. Are there OTHER USES for this medicine? Clopidogrel is also sometimes used to prevent blood clots in people with atrial fibrillation (a condition in which the heart beats irregularly). Talk to your doctor about the possible risks of using this medication for your condition. This medication may be prescribed for other uses; ask your doctor or pharmacist for more information. What SPECIAL PRECAUTIONS should I follow? Before taking clopidogrel, ?? tell your doctor and pharmacist if you are allergic to clopidogrel, prasugrel (Effient), ticlopidine, any other medications, or any ingredient in clopidogrel tablets. Ask your pharmacist or check the Medication Guide for a list of the ingredients. ?? tell your doctor and pharmacist what other prescription and nonprescription medications, vitamins, nutritional supplements, and herbal products you are taking or plan to take while taking clopidogrel. Your doctor may need to change the doses of your medications or monitor you carefully for side effects. . ?? The following nonprescription products may interact with clopidogrel: omeprazole (Prilosec, Prilosec OTC, Zegerid); esomeprazole (Nexium); aspirin and other nonsteroidal anti-inflammatory drugs (NSAIDs) such as ibuprofen (Advil, Motrin) and naproxen (Aleve, Naprosyn). Be sure to let your doctor and pharmacist know that you are taking these medications before you start taking clopidogrel. Do not start any of these medications while taking clopidogrel without discussing with your healthcare provider. ?? tell your doctor if you have bleeding ulcers (sores in the lining of the stomach or small intestine that are bleeding), bleeding in the brain, or any other condition that causes severe bleeding. Your doctor may tell you that you should not take clopidogrel. ?? tell your doctor if you have recently been injured and if you have or have ever had liver or kidney disease or any condition that may cause bleeding, including stomach problems such as ulcers. ?? tell your doctor if you are , plan to become , or are breast- feeding. If you become while taking clopidogrel, call your doctor. ?? if you are having surgery, including dental surgery, tell the doctor or dentist that you are taking clopidogrel. Your doctor may tell you to stop taking clopidogrel at least 5 days prior to your surgery to avoid excessive bleeding during surgery. Your doctor will tell you when to start taking clopidogrel again after your surgery. ?? you should know that you may bleed more easily or for a longer time than usual while you are taking clopidogrel. Be careful not to cut or hurt yourself while you are taking clopidogrel. What SPECIAL DIETARY instructions should I follow? [...] What SIDE EFFECTS can this medicine cause? Clopidogrel may cause side effects. Tell your doctor if any of these symptoms are severe or do not go away: ?? excessive tiredness ?? headache ?? dizziness ?? nausea ?? vomiting ?? stomach pain ?? diarrhea ?? nosebleed ?? Some side effects can be serious. If you experience any of the following symptoms, call your doctor immediately: ?? hives ?? rash ?? itching ?? difficulty breathing or swallowing ?? swelling of the face, throat, tongue, lips, eyes, hands, feet, ankles, or lower legs ?? hoarseness ?? black and tarry stools ?? red blood in stools ?? bloody vomit ?? vomit that looks like coffee grounds ?? unusual bleeding or bruising ?? pink or brown urine ?? slow or difficult speech ?? weakness or numbness of an arm or a leg ?? changes in vision ?? fever ?? shortness of breath ?? fast heartbeat ?? pale skin ?? purple patches or bleeding under the skin ?? confusion ?? yellowing of the skin or eyes ?? seizures Clopidogrel may cause other side effects. Call your [...] services at 911. Symptoms of overdose may include the following: ?? unusual bruising or bleeding What OTHER INFORMATION should I know? Keep all appointments with your doctor. Do not let anyone else take your medication. Ask your pharmacist any questions you have about refilling your prescription. It is important for you to keep a written list of all of the prescription and nonprescription ([id number]-[id number]) medicines you are taking, as well as [...] or pharmacist about specific clinical use. The [employer] represents that the information provided hereunder was formulated with a reasonable standard of care, and in conformity with professional standards in the field. [employer] makes no representations or warranties, express or implied, including, but not limited to, any implied warranty of merchantability and/or fitness for a particular purpose, with respect to such information and specifically disclaims all such warranties. Users are advised that decisions regarding drug therapy are complex medical decisions requiring the independent, informed decision of an appropriate health customer care associate, and the information is provided for informational purposes only. The entire monograph for a drug should be reviewed for a thorough understanding of the drug's actions, uses and side effects. The [employer] does not endorse or recommend the use of any drug.The information is not a substitute for medical care. AHFS?? Patient Medication Information?. ?? Copyright, 2023. [employer]??, [address], [address], [place], [place]. All Rights Reserved. Duplication for commercial use must be authorized by [facility]. Selected Revisions: September 16, 2023. AHFS?? Patient Medication Information?. ?? Copyright, 2023 * Gabbi Starks - Tamara Horne RN - 12/25/2023 10:31 AM EDT Images from the original note were not included. [id number] Dapagliflozin Brand Name(s): Farxiga??, Qtern?? (as a combination product containing Dapagliflozin, Saxagliptin),Qternmet?? XR (as a combination product containing Dapagliflozin, Metformin, Saxagliptin), Xigduo??XR (as a combination product containing Dapagliflozin, Metformin) WHY is this medicine prescribed? Dapagliflozin is used along with diet and exercise, and sometimes with other medications, to lower blood sugar levels in adults with type 2 diabetes (condition in which blood sugar is too high because the body does not produce or use insulin normally). It is also used to reduce the risk of needing to be hospitalized for heart failure in adults who have type 2 diabetes along with heart and blood vessel disease or who have multiple risk factors for developing heart and blood vessel disease. Dapagliflozin is also used in adults with heart failure to reduce the risk of needing to be hospitalized and due to heart and blood vessel disease. It is also used to reduce the risk of worsening kidney disease, the need to be hospitalized for heart failure, and the risk of due to heart disease in adults with kidney disease. Dapagliflozin is in a class of medications called sodium-glucose co-transporter 2 (SGLT2) inhibitors. It lowers blood sugar by causing the kidneys to get rid of more glucose in the urine. Dapagliflozin is not used to treat type 1 diabetes (condition in which the body does not produce insulin and, therefore, cannot control the amount of sugar in the blood) or diabetic ketoacidosis (a serious condition that may develop if high blood sugar is not treated). Over time, people who have diabetes and high blood sugar can develop serious or life-threatening complications, including heart disease, stroke, kidney problems, nerve damage, and eye problems. Taking dapagliflozin, making lifestyle changes (e.g., diet, exercise, quitting [...] or gum disease. Your doctor and other healt hcare providers will talk to you about the best way to manage your diabetes. HOW should this medicine be used? Dapagliflozin comes as a tablet to take by mouth. It is taken usually with or without food once a day. Take dapagliflozin at around the same time every day. Follow the directions on your prescriptionlabel carefully, and ask your doctor or pharmacist to explain any part you do not understand. Take dapagliflozin exactly as directed. Do not take more or less of it or take it more often than prescribed by your doctor. Your doctor may start you on a low dose of dapagliflozin and increase your dose if needed. Dapagliflozin helps to control your condition, but does not cure it. Continue to take dapagliflozineven if you feel well. Do not stop taking dapagliflozin without talking to your doctor. Your doctor or pharmacist will give you the event sales representative's patient information sheet (Medication Guide) when you begin treatment with dapagliflozin and each time you refill your prescription. Read the information carefully and ask your doctor or pharmacist if you have any questions. You can also visit the Food and Drug Administration (FDA) website (https://www.fda.gov/Drugs/DrugSafety/esb121673.htm) to obtain the Medication Guide. Are there OTHER USES for this medicine? This medication may be prescribed for other uses; ask your doctor or pharmacist for more information. What SPECIAL PRECAUTIONS should I follow? Before taking dapagliflozin, ?? tell your doctor and pharmacist if you are allergic to dapagliflozin, any other medications, or any of the ingredients in dapagliflozin tablets. Ask your pharmacist or check the Medication Guide for a list of the ingredients. ?? tell your doctor and pharmacist what other prescription and nonprescription medications, vitamins, nutritional supplements, and herbal products you are taking or plan to take. Your doctor may needto change the doses of your medications or monitor you carefully for side effects. ?? tell your doctor if you regularly drink alcohol or sometimes drink large amounts of alcohol in ashort time (binge drinking), if you are on a low sodium diet, or if you have an infection. Also tell your doctor if you have or have ever had heart failure, pancreatic disease including pancreatitis (swelling of the pancreas) or have had surgery on your pancreas, urinary tract infections or problems urinating, low blood pressure, yeast infections in the genital area, or kidney or liver disease. If you are male, tell your doctor if you have never been circumcised. Also, tell your doctor if you are eating or drinking less due to illness, surgery or a change in your diet; if you are following a ketogenic diet (a high fat, low carbohydrate diet); or have recently had diarrhea, vomiting, been inthe sun too long, or have been sweating a lot, which may cause dehydration (loss of a large amount of body fluids). ?? tell your doctor if you are , plan to become , or are . Do not breastfeed while you are taking dapagliflozin. If you become while taking dapagliflozin, call your doctor. ?? if you are having surgery, including dental surgery, tell the doctor or dentist that you are taking dapagliflozin. Your doctor will probably tell you to stop taking dapagliflozin at least 3 days before a surgery. ?? alcohol may cause a change in blood sugar. Ask your doctor about the safe use of alcoholic beverages while you are taking dapagliflozin. ?? you should know that dapagliflozin may cause dizziness, lightheadedness, and fainting when you get up too quickly from a lying position. If you have this problem, call your doctor. This problem ismore common when you first start taking dapagliflozin. To avoid this problem, get out of bed slowly, resting your feet on the floor for a few minutes before standing up. ?? ask your doctor what to do if you get sick, develop an infection or fever, experience unusual stress, or are injured. These conditions can affect your blood sugar and the amount of dapagliflozin you may need. What SPECIAL DIETARY instructions should I follow? Be sure to follow all exercise and dietary recommendations made by your doctor or dietitian. It is important to eat a healthful diet and exercise regularly. Follow your doctor's instructions about drinking enough fluids throughout the day while you are on this medication. What should I do IF I FORGET to take a dose? Take the missed dose as soon as you remember it. However, if it is almost time for the next dose, skip the missed dose and continue your regular dosing schedule. Do not take a double dose to make up for a missed one. What SIDE EFFECTS can this medicine cause? ?? urinating a lot, including at night ?? stuffy or runny nose ?? sore throat ?? leg or arm pain ?? constipation Dapagliflozin may cause side effects. Tell your doctor if any of these symptoms are severe or do not go away: ?? Some side effects can be serious. If you experience any of these symptoms, call your doctor immediately: ?? frequent, urgent, burning, or painful urination ?? urine that is cloudy, red, pink, or brown ?? strong smelling urine ?? decrease in amount of urine ?? fever, back pain, nausea or vomiting ?? dry mouth, dark urine, decreased sweating, dry skin, and other signs of dehydration ?? pelvic or rectal pain ?? (in women) vaginal odor, white or yellowish vaginal discharge (may be lumpy or look like cottagecheese), or vaginal itching ?? (in men) redness, itching, or swelling of the penis; rash on the penis; foul smelling discharge from the penis; or pain in the skin around the penis ?? feeling tired, weak, or uncomfortable; along with a fever and pain, tenderness, redness, and swelling of the genitals or the area between the genitals and the rectum ?? If you experience any of the following symptoms, stop taking dapagliflozin and call your doctor immediately or get emergency medical treatment: ?? rash ?? hives ?? itching ?? difficulty breathing or swallowing ?? swelling of the face, throat, tongue, lips, mouth, or eyes ?? hoarseness ?? If you experience any of the following symptoms of ketoacidosis, stop taking dapagliflozin and call your doctor immediately or get emergency medical treatment. If possible, check for ketones in your urine if you have these symptoms, even if your blood sugar is less than 250 mg/dL: ?? nausea ?? vomiting ?? stomach-area pain ?? tiredness ?? difficulty breathing Dapagliflozin can cause dehydration. It is important that you drink plenty of water while taking dapagliflozin. Talk to your doctor or pharmacist about the right amount of water to drink to prevent dehydration while taking dapagliflozin. Dapagliflozin may cause other side effects. Call your doctor if you have any unusual problems whiletaking this medication. If you experience a serious [...] awakened, immediately call emergency services at 911. What OTHER INFORMATION should I know? Keep all appointments with your doctor and the laboratory. Your doctor will probably order certain laboratory test before and during your treatment to check your body's response to dapagliflozin. Your blood sugar levels should be checked regularly to determine your response to dapagliflozin. Your doctor will order other lab tests, including glycosylated hemoglobin (HbA1c), to check your response to dapagliflozin. Your doctor will also tell you how to check your response to this medication by measuring your blood sugar levels at home. Follow these instructions carefully. Before having any laboratory test, tell your doctor and the laboratory personnel that you are taking dapagliflozin. Because of the way this medication works, your urine may test positive for glucose. You should always wear a diabetic identification bracelet to be sure you get proper treatment in anemergency. Do not let anyone else take your medication. Ask your pharmacist any questions you have about refilling your prescription. It is important for you to keep a written list of all of the prescription and nonprescription (dabp-wth-upaqorr) medicines you are taking, as well as [...] or pharmacist about specific clinical use. The [employer] represents that the information provided hereunder was formulated with a reasonable standard of care, and in conformity with professional standards in the field. [employer] makes no representations or warranties, express or implied, including, but not limited to, any implied warranty of merchantability and/or fitness for a particular purpose, with respect to such information and specifically disclaims all such warranties. Users are advised that decisions regarding drug therapy are complex medical decisions requiring the independent, informed decision of an appropriate health customer care associate, and the information is provided for informational purposes only. The entire monograph for a drug should be reviewed for a thorough understanding of the drug's actions, uses and side effects. The [employer] does not endorse or recommend the use of any drug.The information is not a substitute for medical care. AHFS?? Patient Medication Information?. ?? Copyright, 2023. [employer]??, [address], [address], [place], [place]. All Rights Reserved. Duplication for commercial use must be authorized by [facility]. Selected Revisions: May 13, 2023. AHFS?? Patient Medication Information?. ?? Copyright, 2023 * Gabbi Starks - Tamara Horne RN - 12/25/2023 10:31 AM EDT Images from the original note were not included. [id number] Bumetanide Brand Name(s): Bumex??; also available generically IMPORTANT WARNING: Bumetanide is a strong diuretic ('water pill') and may cause dehydration and electrolyte imbalance.It is important that you take it exactly as told by your doctor. If you experience any of the following symptoms, call your doctor immediately: rapid, excessive weight loss; decreased urination; dry mouth; thirst; nausea; vomiting; weakness; drowsiness; confusion; muscle pain or cramps; or rapid orpounding heartbeats. WHY is this medicine prescribed? Bumetanide is used to treat edema (fluid retention; excess fluid held in body tissues) caused by various medical problems, including heart, kidney, and liver disease. Bumetanide is in a class of medications called diuretics ('water pills'). It works by causing the kidneys to get rid of unneeded water and salt from the body into the urine. HOW should this medicine be used? Bumetanide comes as a tablet to take by mouth. It usually is taken once a day. When used to treat edema, a second or third dose may be given every 4 to 5 hours depending on the amount of swelling. Follow the directions on your prescription label carefully, and ask your doctor or pharmacist to explain any part you do not understand. Take bumetanide exactly as directed. Do not take more or less of it or take it more often than prescribed by your doctor. Bumetanide controls edema but does not cure it. Continue to take bumetanide even if you feel well. Do not stop taking bumetanide without talking to your doctor. Are there OTHER USES for this medicine? Bumetanide is also sometimes used to treat high blood pressure. Talk to your doctor about the risksof using this medication for your condition. This medicine is sometimes prescribed for other uses; ask your doctor or pharmacist for more information. What SPECIAL PRECAUTIONS should I follow? Before taking bumetanide, ?? tell your doctor and pharmacist if you are allergic to bumetanide, sulfonamide medications, any other medications, or any ingredients in bumetanide tablets. Ask your pharmacist or check the patient information for a list of the ingredients. ?? tell your doctor and pharmacist what prescription and nonprescription medications, vitamins, nutritional supplements, and herbal products you are taking or plan to take. Be sure to mention any of the following: medications for high blood pressure; aminoglycoside antibiotics such as amikacin, gentamicin (Garamycin), or tobramycin (Bethkis, Lwe); corticosteroids (e.g., prednisone), digoxin (Lanoxin); indomethacin (Indocin, Tivorbex); lithium (Lithobid), and probenecid (Probalan, Probenemid). Your doctor may need to change the doses of your medications or monitor you carefully for side effects. ?? tell your doctor if you have kidney disease. Your doctor may tell you not to take bumetanide. ?? tell your doctor if you have or have ever had diabetes, or heart, or liver disease. ?? tell your doctor if you are , plan to become , or are breast- feeding. Do not breast-feed while taking this medicine. If you become while taking bumetanide, call your doctor. ?? if you are having surgery, including dental surgery, tell the doctor or dentist that you are taking bumetanide. What SPECIAL DIETARY instructions should I follow? If your doctor prescribes a low-salt or low-sodium diet, or to eat or drink increased amounts of potassium-rich foods (e.g., bananas, prunes, raisins, and orange juice) in your diet, follow these instructions carefully. What should I do IF I FORGET to take a dose? Take the missed dose as soon as you remember it. However, if it is almost time for your next dose, skip the missed dose and continue your regular dosing schedule. Do not take a double dose to make upfor a missed one. What SIDE EFFECTS can this medicine cause? Tell your doctor if any of these symptoms are severe or do not go away: ?? frequent urination ?? dizziness ?? upset stomach ?? diarrhea ?? Some side effects can be serious. If you have any of these symptoms or those listed in the IMPORTANT WARNING section, call your doctor immediately or get emergency medical treatment:: ?? ringing in ears ?? loss of hearing ?? unusual bleeding or bruising ?? severe rash with peeling skin ?? difficulty breathing or swallowing ?? hives If you experience a serious side effect, you or your doctor may send a report to the Food and Drug Administration's (FDA) MedWatch Adverse Event Reporting program online (https://www.fda.gov/Safety/MedWatch) or by phone ( ). What should I know about STORAGE and DISPOSAL of this medication? Keep this medicine in the container it came in, tightly closed, and out of reach of children. Storeit at room temperature and away from excess [...] 911. Symptoms of overdose may include: ?? weakness ?? dizziness ?? confusion ?? extreme tiredness ?? loss of appetite ?? vomiting ?? stomach cramps What OTHER INFORMATION should I know? Keep all appointments with your doctor and the laboratory. Before having any laboratory test, tell your doctor and the laboratory personnel that you are taking bumetanide. Do not let anyone else take your medicine. Ask your pharmacist any questions you have about refilling your prescription. It is important for you to keep a written list of all of the prescription and nonprescription (klvp-ptt-lgkxhbl) medicines you are taking, as well as [...] or pharmacist about specific clinical use. The [employer] represents that the information provided hereunder was formulated with a reasonable standard of care, and in conformity with professional standards in the field. [employer] makes no representations or warranties, express or implied, including, but not limited to, any implied warranty of merchantability and/or fitness for a particular purpose, with respect to such information and specifically disclaims all such warranties. Users are advised that decisions regarding drug therapy are complex medical decisions requiring the independent, informed decision of an appropriate health customer care associate, and the information is provided for informational purposes only. The entire monograph for a drug should be reviewed for a thorough understanding of the drug's actions, uses and side effects. The [employer] does not endorse or recommend the use of any drug.The information is not a substitute for medical care. AHFS?? Patient Medication Information?. ?? Copyright, 2023. [employer]??, [address], [address], [place], [place]. All Rights Reserved. Duplication for commercial use must be authorized by [facility]. Selected Revisions: January 10, 2017. AHFS?? Patient Medication Information?. ?? Copyright, 2023 * Gabbi Starks - Tamara Horne RN - 12/25/2023 10:31 AM EDT Images from the original note were not included. [id number] Discharge Instructions: Taking Diuretics Your healthcare provider prescribed a type of medicine called a diuretic for you. Diuretics help reduce the amount of water in the body. They make you pee more often, flushing water and salts from your body. Diuretics are a treatment for high blood pressure (hypertension) and conditions such as heart failure, liver failure, and swelling (edema). The name of your diuretic is: Home care ?? Follow the fact sheet that came with your medicine. It tells you when and how to take your medicine. Ask for a sheet if you didn?t get one. ?? Tell your healthcare provider if you are taking any other medicines, including herbal remedies or wxfk-qcb-kqnexzz medicines. ?? Plan your activities in advance until you know how this medicine affects you. ?? Take your diuretic in the morning. This medicine makes you pee more. If you take it in the morning, you may not need to use the bathroom during the night. That way, the medicine won?t interfere with a good night?s sleep. ?? Take your medicine exactly as directed, even if you feel fine. ?? Learn to take your own pulse and blood pressure. Keep a record of your results. Ask your healthcare provider which readings mean that you need medical attention. Possible side effects Tell your healthcare provider if you have any of these side effects. Don?t stop taking the medicineuntil your healthcare provider tells you to. Mild side effects include the following: ?? Dizziness or lightheadedness ?? Headache ?? Loss of appetite ?? Diarrhea ?? Increased sensitivity to light ?? Nervousness ?? Stomach cramps with mild pain ?? New rash When to call your healthcare provider Call your healthcare provider right away if any of these occur: ?? Blood in your urine or stool or black, tarry stool ?? Cough or hoarseness ?? Fever or chills ?? Lower back or side pain, or muscle cramps or pain ?? Trouble peeing, pain when you pee, or dark urine ?? Pinpoint red spots on skin ?? Ringing or buzzing in your ears or any hearing loss ?? Skin rash or hives ?? Severe stomach pain with nausea and vomiting ?? Unusual bleeding or bruising ?? Yellow vision or yellowing of your eyes or skin (jaundice) ?? Increased thirst ?? Irregular heartbeat or weak pulse ?? Palpitations Last Reviewed Date: 2021 00:00:00 ?? [id number] [employer]. All rights reserved. This information is not intended as a substitute for professional medical care. Always follow your healthcare professional's instructions. * Hospital Course - Robert Nevarez MD - 12/25/2023 8:40 AM EDT Robert Hurley is a 58 y.o. male with a past medical history of HFrEF, suspected COPD, CAMACHO cirrhosis, DM2, CKD4, prior L AKA, who presented to ED on 12/15 with worsening SOB and scrotal edema. Subsequently admitted to [facility] for ADHF. #Decompensated HFrEF - Patient was last admitted to Cardiology in May of this year 06/14-. At that point in time was noted to have been admitted in February of 2023 with acute HF exacerbation. In May was treated for acute on chronic hypoxic respiratory failure and discharged with follow-up the high-risk discharge clinic. More recently, patient presented to [facility] with symptoms of acute heart failure exacerbation. Was transferred to [facility] from the facility. Was admitted at [facility] between 10/28 through 11/07 of this year. As per [facility] notes, admitted to [facility] initially for heart failure exacerbation and upon further evaluation had an EF of 20-25% was transferred to our facility for AICD evaluation . At [facility], pt was noted to have (1) EF of 15% , (2) evidence of aortic stenosis with concern for low-flow low gradient AAS, (3) was discharged with a lifevest with outpatient follow up for AICD. On interview, patient reports that since discharge he has been experiencing worsening shortness of breath, worsening edema, reports that he is unsure how he lost his life vest. Reports that he lives by himself at home, uses a wheelchair at home, is on 2-3 L of oxygen at home. - Labs in the ED for were significant a lactate of 1, potassium elevated to 5.1, initial troponin 98, repeat 94 with a delta of 4, NT proBNP at 64,000, chest x- ray with signs of volume overload and bilateral pleural effusions. After admission patient was initially diuresed diuresed with Bumex drip,however after one day this was transitioned to Bumex 2 mg IV bid until 12/20. On 12/20 he was transitioned to oral diuresis with Bumex 2mg bid. Throughout his hospitalization patient did complain of some scrotal edema that was causing him significant difficulty with movement, however this had resolved by the day of discharge. - On the day of discharge patient remained afebrile, HDS, saturating well on 2L which is what he wears at home. He was successfully diuresed with a net negative fluid balance of over 23L. His home medications were changed with an increased dose of metoprolol to 50 mg daily, change in his daily diuretic from Lasix 40 mg daily to Bumex 2 mg daily, discontinuation of his hydralazine IDN to losartan 25 mg daily, and transition to losartan 25 mg daily. Patient was educated on these changes and MONIK follow-up was arranged for him with date and time of appointment to be determined. * Care Plan - Lai Billingsley RN - 12/24/2023 9:40 PM EDT Problem: Adult Inpatient Plan of [...] Excess Goal: Fluid Balance Outcome: Ongoing, Progressing Problem: Self-Care Deficit Goal: Improved Ability to Complete Activities of Daily Living Outcome: Ongoing, Progressing * Progress Notes - Robert Nevarez MD - 12/24/2023 1:01 PM EDT Images from the original note were not included. INPATIENT CARDIOLOGY (CA3) DAILY PROGRESS NOTE SUBJECTIVE NAEO. Scrotal edema improved today. Patient wishing to go home and adamantly denies rehab recommendations. Review of Systems All other systems reviewed and are negative. OBJECTIVE Vitals Visit Vitals BP 122/87 (BP Location: Left arm, Patient Position: Lying) Pulse 67 Temp 36.8 ??C (98.2 ??F) (Oral) Ht 1.829 m (6') Wt 89.4 kg (197 lb 1.5 oz) SpO2 97% BMI 26.73 kg/m?? Intake/Output Summary (Last 24 hours) at 12/24/2023 1302 Last data filed at 12/24/2023 0900 Gross per 24 hour Intake 1764 ml Output 3050 ml Net -1286 ml Net IO Since Admission: -21,875.74 mL [12/24/23 1302] O2 Delivery Method: Nasal cannula Physical Exam: Physical Exam Vitals reviewed. Constitutional: Appearance: Normal appearance. He is obese. He is not ill-appearing. HENT: Head: Normocephalic. Nose: No congestion. Mouth/Throat: Mouth: Mucous membranes are moist. Pharynx: Oropharynx is clear. Eyes: Extraocular Movements: Extraocular movements intact. Pupils: Pupils are equal, round, and reactive to light. Cardiovascular: Rate and Rhythm: Normal rate and regular rhythm. Heart sounds: Murmur heard. No friction rub. No gallop. Pulmonary: Effort: Pulmonary effort is normal. Breath sounds: Rales present. No wheezing or rhonchi. Abdominal: General: There is distension. Palpations: Abdomen is soft. Tenderness: There is no abdominal tenderness. There is no guarding. Genitourinary: Comments: Scrotal, if present, at a minimal level compared to prior. Musculoskeletal: Comments: 1+ edema noted to the dependent, very proximal portions of the superior thigh L AKA noted Skin: General: Skin is warm and dry. Findings: No rash. Neurological: General: No focal deficit present. Mental Status: He is alert. Mental status is at baseline. Psychiatric: Mood and Affect: Mood normal. Behavior: Behavior normal. Labs and Imaging Labs in last 18 hours CBC WBC 5.25 Hb 8.8 (L)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 vest- plan for outpatient AICD f/u - Hx of NSTEMI 02/18- on DAPT for a period of time - TTE with results as above, EF improved compared to prior. PLAN: - Diuresis: Bumex 2mg PO today. - GDMT: -Maintain losartan 25 mg, will consider increasing. Discontinued hydralazine, IDN. -Increased metoprolol to 50 mg daily today. -Maintain Jardiance 10 mg daily. #Debility - Patient reporting that he is unable to move d/t pain in his scrotum and has refused to work with PT/OT since admssion. - Though his scrotal swelling has improved he does not believe that he will be able to use his prosthesis for ambulation. PLAN: - Had a lengthy conversation today that if he is unable to leave the bed he will need to go to subacute rehab for further strengthening. He has denied subacute rehab recently stating he does not wantto go and would rather go home, however he does not feel that he would be back to such functional status to allow him to go home. This is all secondary to his scrotal edema. Informed him that unless he is able to move around that this dependent edema will not improve and that it does appear he no longer required IV diuresis. - Will allow him to weigh his options and attempt to work with PT/OT today. We do not expect a change in recommendations, rather wish that the patient would attempt to improve his functional status. #KOKO on CKD stage 4 (resolved) - sCr on presentation 3.32/BUN 74- baseline sCr appears to be around 2.8-3.2 - urine with large amount of protein and glucose - asymptomatic froma uremia standpoint PLAN: - Continue to monitor. #T2DM - on lantus 10units HS and SSI at [facility] - A1C 6.6 in 06/19, now 8.0 11/2023 PLAN: - Lantus 12u qhs + SSI - Jardiance 10 mg daily. 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 PLAN: - Distension appears to be improving with diuresis. 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 Robert Nevarez MD, PGY-1 Internal Medicine 12/23/2023 12:03 PM Cosigned by Jonny Broussard MD at 12/23/2023 12:42 PM EDT Associated attestation - Jonny Broussard MD - 12/23/2023 12:42 PM EDT I saw and evaluated the patient with the resident/fellow. I discussed the case with the resident/fellow and agree with the findings and plan as documented. * Progress Notes - Eliseo Louis - 12/23/2023 11:12 AM EDT Music Therapy Note Missed Opportunity: Yes Missed Opportunity Reason: Patient unavailable. Pt receiving bedside care. Plan of Care: Plan of Care: Will return at another time Cosigned by Madelyn Angulo at 12/24/2023 10:45 AM EDT Associated attestation - Madelyn Angulo - 12/24/2023 10:45 AM EDT Note reviewed and approved by music therapy commander internal affairs mapping supervisor. * Care Plan - Lai Billingsley RN - 12/22/2023 10:03 PM EDT Problem: Adult Inpatient Plan of [...] Outcome: Ongoing, Progressing * Progress Notes - Robert Nevarez MD - 12/22/2023 11:09 AM EDT Images from the original note were not included. INPATIENT CARDIOLOGY ([facility]) DAILY PROGRESS NOTE SUBJECTIVE NAEO. Still continuing to endorse scrotal pain and edema, although improved today. Friend has not yet brought his prosthetic and states he might bring it this weekend of he is still here. Review of Systems All other systems reviewed and are negative. OBJECTIVE Vitals Visit Vitals BP 127/70 Pulse 79 Temp 36.7 ??C (98 ??F) (Oral) Ht 1.829 m (6') Wt 95.5 kg (210 lb 8.6 oz) SpO2 97% BMI 28.55 kg/m?? Intake/Output Summary (Last 24 hours) at 12/22/2023 1109 Last data filed at 12/22/2023 1000 Gross per 24 hour Intake 1060 ml Output 4230 ml Net -3170 ml Net IO Since Admission: -18,409.74 mL [12/22/23 1109] O2 Delivery Method: Nasal cannula Physical Exam: Physical Exam Vitals reviewed. Constitutional: Appearance: Normal appearance. He is obese. He is not ill-appearing. HENT: Head: Normocephalic. Nose: No congestion. Mouth/Throat: Mouth: Mucous membranes are moist. Pharynx: Oropharynx is clear. Eyes: Extraocular Movements: Extraocular movements intact. Pupils: Pupils are equal, round, and reactive to light. Cardiovascular: Rate and Rhythm: Normal rate and regular rhythm. Heart sounds: Murmur heard. No friction rub. No gallop. Pulmonary: Effort: Pulmonary effort is normal. Breath sounds: Rales present. No wheezing or rhonchi. Abdominal: General: There is distension. Palpations: Abdomen is soft. Tenderness: There is no abdominal tenderness. There is no guarding. Genitourinary: Comments: Scrotal edema present, improving Musculoskeletal: Comments: Trace pitting edema to the thigh L AKA noted Skin: General: Skin is warm and dry. Findings: No rash. Neurological: General: No focal deficit present. Mental Status: He is alert. Mental status is at baseline. Psychiatric: Mood and Affect: Mood normal. Behavior: Behavior normal. Labs and Imaging Labs in last 18 hours CBC WBC 4.56 Hb 8.5 (L) Plt 197 Hct 27.6 (L) ANC 3.29 INR ??, PTT ??, Anti-Xa ?? BMP Na 139 Cl 97 BUN 74 (H) Glu 154 (H) K 3.5 (L) Co2 31 (H) Cr 3.20 (H) Ca 8.7 (L) iCa ?? Mg 2.0, Phos 4.3 Lactate ?? LFT AST ?? AlkPhos ?? T Prot ?? ALK ?? Bili ?? Alb ?? D.Bili ?? CXR: Cardiomegaly with atelectatic changes in the lung bases. Small bilateral pleural effusions. Echo: Pending Echocardiogram (10/30/23): Normal sized left ventricle. Moderate left ventricular hypertrophy. Visually estimated ejection fraction 15% +/- 5%. Increased left atrial pressure (Grade II diastolic dysfunction). Dilated right ventricle. Moderate (2+) mitral regurgitation. Mild aortic valve regurgitation. Suspect low-flow low-gradient aortic stenosis. Moderate (2+) tricuspid regurgitation. Moderate pulmonary hypertension. Echocardiogram (12/20/2023): Left Ventricle: Based on the linear dimension [...] and technique, AoV gradients have increased. ECG/Telemetry: Normal sinus rhythm, no acute signs of ischemia RUQ U/S: FINDINGS: Grayscale: The liver is mildly coarse [...] Patent hepatic vasculature with appropriate flow directionality. ASSESSMENT/PLAN Robert Hurley is a 58 y.o. male with a past medical history of HFrEF, suspected COPD, CAMACHO cirrhosis, DM2, CKD4, prior L AKA, who presented to ED on 12/15 with worsening SOB and scrotal edema. Subsequently admitted to [facility] for ADHF. # Acute on chronic decompensated HF 2/2 ICM # AHRF - NYHA III, Stage D - Recent admission to [facility] with ADHF, TTE at facility with EF 15%, concern for aortic insufficiency- discharged on life vest although he has apparently lost this - On Toprol 75 mg daily, Isordil 10 mg TID, Hydralazine 10 mg daily with Bumex 1mg BID day before discharge from [facility]. Discharged med- rec unclear. Pt states he is taking meds consistently - Reports worsening SOB post discharge, CXR [place] [address], Trops flat, increasing O2 req ED- 4l via NC (on 2l outpatient), clinical signs of volume on exam - Was seen by EP at [facility], lost life vest- plan for outpatient AICD f/u - Hx of NSTEMI 02/18- on DAPT for a period of time - TTE with results as above, EF improved compared to prior. PLAN: - Diuresis: Bumex 2mg IV bid today. - GDMT: -Hydralazine, IDN maximized, will start losartan 25 mg today. -Increased metoprolol to 50 mg daily today. -Maintain Jardiance 10 mg daily. # KOKO on CKD stage 4 - sCr on presentation 3.32/BUN 74- baseline sCr appears to be around 2.8-3.2 - urine with large amount of protein and glucose - asymptomatic froma uremia standpoint PLAN: - Continue to monitor. # T2DM - on lantus 10units HS and SSI at [facility] - A1C 6.6 in 06/19, now 8.0 11/2023 PLAN: - Lantus 12u qhs + SSI - Jardiance 10 mg daily today. 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 PLAN: - Distension appears to be improving with diuresis. Chronic Diabetic Neuropathy- Gabapentin reinitiated HTN: hypertensive on admission, adherence unclear Chronic Hep B: previously on entecavir Normocytic anemia iso CKD and CHF- IV iron complete L AKA due cellulitis and abscess 2018 COPD- unclear if pt has had PFTs, long hx of tobacco use, quit smoking since 08/19- PRN duo-nebs ordered DVT ppx: Heparin Code Status: Full Dispo: Admit to CA3. Robert Nevarez MD, PGY-1 Internal Medicine 12/22/2023 11:09 AM Cosigned by Jonny Broussard MD at 12/22/2023 4:07 PM EDT Associated attestation - Jonny Broussard MD - 12/22/2023 4:07 PM EDT I saw and evaluated the patient with the resident/fellow. I discussed the case with the resident/fellow and agree with the findings and plan as documented. * Clinician Note - Nell Judge - 12/22/2023 11:04 AM EDT Occupational Therapy Attempt Patient Name: Robert Hurley Today's Date: 12/22/2023 Patient was attempted to be seen by occupational therapy 12/22/2023 for OT Treatment however patientpolitely declined (Pt reports frequent BM's since last night and is having abdominal pain. Pt requests therapy return tomorrow for mobility.). Occupational therapy team will follow-up as schedule permits. Written by Nell Judge on 12/22/23 at 11:04 AM. * Clinician Note - Therese Maza - 12/22/2023 10:15 AM EDT Physical Therapy Attempt Patient Name: Robert Hurley Today's Date: 12/22/2023 Patient was attempted to be seen by physical therapy 12/22/2023 for PT Treatment however patient politely declined (patient not feeling well; RN and patient reports the patient has had 6 bowel movements this morning.). Physical therapy team will follow-up as schedule permits. Written by Therese Maza on 12/22/23 at 10:41 AM. * Care Plan - Lai Billingsley RN - 12/21/2023 9:54 PM EDT Problem: Adult Inpatient Plan of [...] Outcome: Ongoing, Progressing * Progress Notes - Wei Arshad RN - 12/21/2023 3:50 PM EDT Images from the original note were not included. Wound Care Consult Visit Date: 12/21/2023 Patient Name: Robert Hurley Date of : 1965 Admit Date: 12/16/2023 Reason for Consult: IP Wound Orders (From admission, onward) Start Ordered 12/20/23 1500 Wound ostomy eval and treat Right Buttocks Once Comments: Non-blanchable redness right gluteal. Possible stage 1 Question: Reason for consult: Answer: Wound/pressure injury 12/20/23 1500 12/17/23 1120 Wound ostomy eval and treat 8 Wounds Associated Once Comments: Patient with multiple ulcerations over body, MASD groin area Question: Reason for consult: Answer: Wound/pressure injury 12/17/23 1120 Wound History: HFrEF, suspected COPD, CAMACHO cirrhosis, DM2, CKD4, prior L AKA, Wound Assessment: Wound 12/20/23 Buttocks Right (Active) Date First Assessed/Time First Assessed: 12/20/23 0800 Location: Buttocks Wound Location Orientation: Right Assessments 12/21/2023 2:40 PM Wound Assessment Intact;Tedrow Josefina-Wound Assessment Intact Drainage Amount None Dressing Status Open to air Wound 12/21/23 Pressure Injury Buttocks Left (Active) Date First Assessed: 12/21/23 Present on Original Admission: No Primary Wound Type: Pressure InjuryPressure Injury Stage: Deep Tissue Injury Location: Buttocks Wound Location Orientation: Left WoundDescription (Comments): purple/brown intact ... Assessments 12/21/2023 2:40 PM Wound Image Wound Assessment Purple;Brown;Intact (non blanching) Margins Well-defined edges Josefina-Wound Assessment Intact Wound Length (cm) 2 cm Wound Width (cm) 5 cm Wound Surface Area (cm^2) 10 cm^2 Drainage Amount None Dressing Silicone dressing;Foam Dressing Changed Changed Dressing Status Intact Pressure Injury Stage Deep Tissue Active Orders Date Order Priority Status Authorizing Provider 12/21/23 1532 Apply/Change Wound Dressing Routine Active Jonny Broussard MD - Dressing Type: Other Dressings - Other: Other (Comment) - Other dressing (comment):: Pad and protect Left buttocks with Allevyn foam. Peel back and assess every shift. Change every 3 days and PRN if soiled or saturated. Do not use on incontinent patient. Wound Team Summary Assessment: pt seen and assessed, previous Lt AKA, RLE with hemosiderin staining, scattered scabbed areas and dry skin consistent with Hx of venous stasis and CHF, recommend aquaphor BID, BUEs with scattered scabbed areas to forearms & elbows, etiology unknown, pt cannot attribute to cause, consistent possible picking vs traumatic injuries, presently stable and dry no drainage or erythema, leave [employer]CH[employer]. Right buttocks intact and pink however left buttocks with an intact purple brown non blanching area consistent with a HAPI DTI, allevyn recommended and changed.pt was adequately turned/off loaded Wound Team Plan: Wound care will follow up at regular intervals while inpatient; bedside nursing tofollow wound care recommendations as ordered and please re- consult sooner for new changes or concerns prior to follow up. Wei Arshad RN CWOCN 12/21/2023 3:50 PM * Progress Notes - Lopez Poe MD - 12/21/2023 2:01 PM EDT Images from the original note were not included. INPATIENT CARDIOLOGY ([facility]) DAILY PROGRESS NOTE SUBJECTIVE Overnight, there was concern for urinary retention and pt had I&O cath perfromed x1. This am, he reports he is feeling better. He still endorses scrotal edema and is concerned about going home due to poor mobility. Review of Systems All other systems reviewed and are negative. OBJECTIVE Vitals Visit Vitals BP 131/77 (BP Location: Left arm, Patient Position: Lying) Pulse 81 Temp 36.5 ??C (97.7 ??F) (Oral) Ht 1.829 m (6') Wt 99.6 kg (219 lb 9.3 oz) SpO2 98% BMI 29.78 kg/m?? Intake/Output Summary (Last 24 hours) at 12/21/2023 1401 Last data filed at 12/21/2023 1229 Gross per 24 hour Intake 1422 ml Output 4000 ml Net -2578 ml Net IO Since Admission: -15,614.74 mL [12/21/23 1401] O2 Delivery Method: Nasal cannula Physical Exam: Physical Exam Vitals reviewed. Constitutional: Appearance: Normal appearance. He is obese. He is not ill-appearing. HENT: Head: Normocephalic. Nose: No congestion. Mouth/Throat: Mouth: Mucous membranes are moist. Pharynx: Oropharynx is clear. Eyes: Extraocular Movements: Extraocular movements intact. Pupils: Pupils are equal, round, and reactive to light. Cardiovascular: Rate and Rhythm: Normal rate and regular rhythm. Heart sounds: Murmur heard. No friction rub. No gallop. Pulmonary: Effort: Pulmonary effort is normal. Breath sounds: Rales present. No wheezing or rhonchi. Abdominal: General: There is distension. Palpations: Abdomen is soft. Tenderness: There is no abdominal tenderness. There is no guarding. Genitourinary: Comments: Scrotal edema present Musculoskeletal: Comments: 1+ pitting edema to the thigh L AKA noted Skin: General: Skin is warm and dry. Findings: No rash. Neurological: General: No focal deficit present. Mental Status: He is alert. Mental status is at baseline. Psychiatric: Mood and Affect: Mood normal. Behavior: Behavior normal. Labs and Imaging Labs in last 18 hours CBC WBC 4.18 Hb 8.8 (L) Plt 215 Hct 29.2 (L) ANC 3.00 INR ??, PTT ??, Anti-Xa ?? BMP Na 140 Cl 99 BUN 73 (H) Glu 147 (H) K 3.9 Co2 33 (H) Cr 3.14 (H) Ca 8.6 (L) iCa ?? Mg 2.0, Phos 4.1 Lactate ?? LFT AST ?? AlkPhos ?? T Prot ?? ALK ?? Bili ?? Alb ?? D.Bili ?? CXR: Cardiomegaly with atelectatic changes in the lung bases. Small bilateral pleural effusions. Echo: Pending Echocardiogram (10/30/23): Normal sized left ventricle. Moderate left ventricular hypertrophy. Visually estimated ejection fraction 15% +/- 5%. Increased left atrial pressure (Grade II diastolic dysfunction). Dilated right ventricle. Moderate (2+) mitral regurgitation. Mild aortic valve regurgitation. Suspect low-flow low-gradient aortic stenosis. Moderate (2+) tricuspid regurgitation. Moderate pulmonary hypertension. Echocardiogram (12/20/2023): Left Ventricle: Based on the linear dimension [...] the continuity equation is 1.6 cm2. Mitral Valv/e: There is moderate mitral regurgitation. Compared to the most recently available prior study, and allowing for differences in image quality and technique, AoV gradients have increased. ECG/Telemetry: Normal sinus rhythm, no acute signs of ischemia RUQ U/S: FINDINGS: Grayscale: The liver is mildly coarse [...] Patent hepatic vasculature with appropriate flow directionality. ASSESSMENT/PLAN Robert Hurley is a 58 y.o. male with a past medical history of HFrEF, suspected COPD, CAMACHO cirrhosis, DM2, CKD4, prior L AKA, who presented to ED on 12/15 with worsening SOB and scrotal edema. Subsequently admitted to [facility] for ADHF. # Acute on chronic decompensated HF presumed ICM # HFrEF of unclear etiology # AHRF -Admitted on 12/15 due to concerns of volume overload in setting of HFrEF exacerbation, new oxygen requirement -Categorization: NYHA III, Stage D. Etiology: Suspected Ischemic Cardiomyopathy -During this admission: Aggressive diuresis with bumex IV bolus dosing, then transitioned over to PO Bumex - - Reports worsening SOB post discharge, CXR [place] [id number], Trops flat, increasing O2 req ED- 4l via NC (on 2l outpatient), clinical signs of volume on exam - Was seen by EP at [facility], lost life vest- plan for outpatient AICD f/u - Hx of NSTEMI 02/18- on DAPT for a period of time PLAN: -GDMT: -Isordil/Hydral - plan to transition off prior to discharge due to poor compliance -Farxiga 10mg daily -Metoprolol succinate 50 daily, will up-titrate while inpatient -MRA: Contraindicated given renal function -Diuresis plan: Bumex PO this am, given still have significant edema, will give IV diuresis this afternoon. Can likely transition to Bumex 1mg PO BID on discharge #Urinary retention -Difficulty urinating today/last night. Bladder scan showing 475cc urine this afternoon -Will place becerra this afternoon -Flomax 0.4mg nightly starting tonight # KOKO on CKD stage 4 - sCr on presentation 3.32/BUN 74- baseline sCr appears to be around 2.8-3.2 - urine with large amount of protein and glucose - asymptomatic froma uremia standpoint PLAN: - Continue to monitor. # T2DM - on lantus 10units HS and SSI at [facility] - A1C 6.6 in 06/19, now 8.0 11/2023 PLAN: - Lantus 12u qhs + SSI - Starting Jardiance 10 mg daily today. 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 PLAN: - Distension appears to be improving with diuresis. Chronic Diabetic Neuropathy- Gabapentin reinitiated HTN: hypertensive on admission, adherence unclear Chronic Hep B: previously on entecavir Normocytic anemia iso CKD and CHF- IV iron L AKA due cellulitis and abscess 2018 COPD- unclear if pt has had PFTs, long hx of tobacco use, quit smoking since 08/19- PRN duo-nebs ordered DVT ppx: Heparin Code Status: Full Dispo: Admit to CA3. Lopez Poe MD, PGY-3 Internal Medicine 12/21/2023 2:01 PM Cosigned by Jonny Broussard MD at 12/22/2023 7:59 AM EDT Associated attestation - Jonny Broussard MD - 12/22/2023 7:59 AM EDT I saw and evaluated the patient with the resident/fellow. I discussed the case with the resident/fellow and agree with the findings and plan as documented. * Care Plan - Vikram Messer, RN - 12/21/2023 11:36 AM EDT Problem: Adult Inpatient Plan of Care Goal: Plan of Care Review Outcome: Ongoing, Progressing Flowsheets (Taken 12/20/[id number] by Tania Ott, RN) Progress: no change Plan of Care Reviewed With: patient Goal: Patient-Specific Goal (Individualized) Outcome: Ongoing, Progressing Goal: Absence of Hospital-Acquired Illness or Injury Outcome: Ongoing, Progressing Goal: Optimal Comfort and Wellbeing Outcome: Ongoing, Progressing Goal: Readiness for Transition of Care Outcome: Ongoing, Progressing Problem: Infection Goal: Absence of Infection Signs and Symptoms Outcome: Ongoing, Progressing Problem: Fluid Volume Excess Goal: Fluid Balance Outcome: Ongoing, Progressing * Clinician Note - Rosalind Sanchez PT - 12/21/2023 10:03 AM EDT Physical Therapy Attempt Patient Name: Robert Hurley Today's Date: 12/21/2023 Patient was attempted to be seen by physical therapy 12/21/2023 for PT Treatment however patient refused. Physical therapy team will follow-up as patient is agreeable. Written by Rosalind Sanchez PT on 12/21/23 at 11:55 AM. * Clinician Note - Amanda Barriga - 12/21/2023 10:02 AM EDT Occupational Therapy Attempt Patient Name: Robert Hurley Today's Date: 12/21/2023 Patient was attempted to be seen by occupational therapy 12/21/2023 for OT however patient refused. Occupational therapy team will follow-up . Written by Amanda Barriga on 12/21/23 at 10:39 AM. * Care Plan - Tania Ott RN - 12/20/2023 10:20 PM EDT Problem: Adult Inpatient Plan of Care Goal: Plan of Care Review Outcome: Ongoing, Progressing Flowsheets (Taken 12/20/2023 2220) Progress: no change Plan of Care Reviewed With: patient * Care Plan - Vikram Messer RN - 12/20/2023 2:32 PM EDT Problem: Adult Inpatient Plan of Care Goal: Plan of Care Review Outcome: Ongoing, Progressing Flowsheets Taken 12/20/2023 1431 by Vikram Messer, RN Progress: improving Taken 12/19/2023 1018 by Susan Iraheta Plan of Care Reviewed With: patient Goal: Patient-Specific Goal (Individualized) Outcome: Ongoing, Progressing Goal: Absence of Hospital-Acquired Illness or Injury Outcome: Ongoing, Progressing Goal: Optimal Comfort and Wellbeing Outcome: Ongoing, Progressing Goal: Readiness for Transition of Care Outcome: Ongoing, Progressing Problem: Infection Goal: Absence of Infection Signs and Symptoms Outcome: Ongoing, Progressing Problem: Fluid Volume Excess Goal: Fluid Balance Outcome: Ongoing, Progressing * Consults - Neeta Hicks RD - 12/20/2023 1:34 PM EDTAssociated Order(s): IP CONSULT TO NUTRITION SERVICES Nutrition Education Consult Met with pt to provide HF nutrition instruction, per consult: 2 gram Na, 2 L fluid per day, or as otherwise instructed by MD/team. Discussed food/beverage selection, cooking/preparation techniques, label reading, and proper portioning. Pt stated that he prepares his own meals, and stated that he was sort of already following a low sodium diet, by avoiding salt and pepper. Assisted with modifiedmeal planning and encouraged less use of highly processed food/ingredients, and avoidance of salty seasonings. Pt stated that he understood. Provided written materials with RD contact information forfurther questions, should they arise. Neeta Hicks RD * Progress Notes - Robert Nevarez MD - 12/20/2023 12:16 PM EDT Images from the original note were not included. INPATIENT CARDIOLOGY ([facility]) DAILY PROGRESS NOTE SUBJECTIVE NAEO. Patient does not feel that he is back to his baseline volume status at this point and feels quite weak from lying in bed. He does still complain of some scrotal pain and swelling although is hesitant to get out of bed because of this. Review of Systems All other systems reviewed and are negative. OBJECTIVE Vitals Visit Vitals BP (!) 142/79 Pulse 84 Temp 36.6 ??C (97.8 ??F) Ht 1.829 m (6') Wt 90.7 kg (200 lb) SpO2 99% BMI 27.12 kg/m?? Intake/Output Summary (Last 24 hours) at 12/20/2023 1216 Last data filed at 12/20/2023 1000 Gross per 24 hour Intake 826 ml Output 3400 ml Net -2574 ml Net IO Since Admission: -13,176.74 mL [12/20/23 1216] Physical Exam: Physical Exam Vitals reviewed. Constitutional: Appearance: Normal appearance. He is obese. He is not ill-appearing. HENT: Head: Normocephalic. Nose: No congestion. Mouth/Throat: Mouth: Mucous membranes are moist. Pharynx: Oropharynx is clear. Eyes: Extraocular Movements: Extraocular movements intact. Pupils: Pupils are equal, round, and reactive to light. Cardiovascular: Rate and Rhythm: Normal rate and regular rhythm. Heart sounds: Murmur heard. No friction rub. No gallop. Pulmonary: Effort: Pulmonary effort is normal. Breath sounds: Rales present. No wheezing or rhonchi. Abdominal: General: There is distension. Palpations: Abdomen is soft. Tenderness: There is no abdominal tenderness. There is no guarding. Genitourinary: Comments: Scrotal edema present Musculoskeletal: Comments: 1+ pitting edema to the thigh L AKA noted Skin: General: Skin is warm and dry. Findings: No rash. Neurological: General: No focal deficit present. Mental Status: He is alert. Mental status is at baseline. Psychiatric: Mood and Affect: Mood normal. Behavior: Behavior normal. Labs and Imaging Labs in last 18 hours CBC WBC 4.20 Hb 8.8 (L) Plt 201 Hct 28.1 (L) ANC 2.89 INR ??, PTT ??, Anti-Xa ?? BMP Na 136 Cl 97 BUN 72 (H) Glu 195 (H) K 4.5 Co2 30 (H) Cr 3.17 (H) Ca 8.5 (L) iCa ?? Mg 1.9, Phos 3.8 Lactate ?? LFT AST ?? AlkPhos ?? T Prot ?? ALK ?? Bili ?? Alb ?? D.Bili ?? CXR: Cardiomegaly with atelectatic changes in the lung bases. Small bilateral pleural effusions. Echo: Pending Echocardiogram (10/30/23): Normal sized left ventricle. Moderate left ventricular hypertrophy. Visually estimated ejection fraction 15% +/- 5%. Increased left atrial pressure (Grade II diastolic dysfunction). Dilated right ventricle. Moderate (2+) mitral regurgitation. Mild aortic valve regurgitation. Suspect low-flow low-gradient aortic stenosis. Moderate (2+) tricuspid regurgitation. Moderate pulmonary hypertension. Echocardiogram (12/20/2023): Left Ventricle: Based on the linear dimension [...] and technique, AoV gradients have increased. ECG/Telemetry: Normal sinus rhythm, no acute signs of ischemia RUQ U/S: FINDINGS: Grayscale: The liver is mildly coarse [...] Patent hepatic vasculature with appropriate flow directionality. ASSESSMENT/PLAN Robert Hurley is a 58 y.o. male with a past medical history of HFrEF, suspected COPD, CAMACHO cirrhosis, DM2, CKD4, prior L AKA, who presented to ED on 12/15 with worsening SOB and scrotal edema. Subsequently admitted to [facility] for ADHF. # Acute on chronic decompensated HF presumed ICM # HFrEF of unclear etiology # AHRF - NYHA III, Stage D - Recent admission to [facility] with ADHF, TTE at facility with EF 15%, concern for aortic insufficiency- discharged on life vest although he has apparently lost this - On Toprol 75 mg daily, Isordil 10 mg TID, Hydralazine 10 mg daily with Bumex 1mg BID day before discharge from [facility]. Discharged med- rec unclear. Pt states he is taking meds consistently - Reports worsening SOB post discharge, CXR [place] [id number], Trops flat, increasing O2 req ED- 4l via NC (on 2l outpatient), clinical signs of volume on exam - Was seen by EP at [facility], lost life vest- plan for outpatient AICD f/u - Hx of NSTEMI 02/18- on DAPT for a period of time - TTE with results as above, EF improved compared to prior. PLAN: - Transitioning to Bumex 1 mg PO bid today and monitor response. - Hydralazine, IDN maximized. Adding metoprolol 25 mg today with possible increase tomorrow. Add Jardiance 10 mg daily today. # KOKO on CKD stage 4 - sCr on presentation 3.32/BUN 74- baseline sCr appears to be around 2.8-3.2 - urine with large amount of protein and glucose - asymptomatic froma uremia standpoint PLAN: - Continue to monitor. # T2DM - on lantus 10units HS and SSI at [facility] - A1C 6.6 in 06/19, now 8.0 11/2023 PLAN: - Lantus 12u qhs + SSI - Starting Jardiance 10 mg daily today. 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 PLAN: - Distension appears to be improving with diuresis. Chronic Diabetic Neuropathy- Gabapentin reinitiated HTN: hypertensive on admission, adherence unclear Chronic Hep B: previously on entecavir Normocytic anemia iso CKD and CHF- IV iron L AKA due cellulitis and abscess 2019 COPD- unclear if pt has had PFTs, long hx of tobacco use, quit smoking since 08/19- PRN duo-nebs ordered DVT ppx: Heparin Code Status: Full Dispo: Admit to [facility]. Robert Nevarez MD, PGY-1 Internal Medicine 12/20/2023 12:16 PM Cosigned by Jonny Broussard MD at 12/20/2023 12:59 PM EDT Associated attestation - Jonny Broussard MD - 12/20/2023 12:59 PM EDT I saw and evaluated the patient with the resident/fellow. I discussed the case with the resident/fellow and agree with the findings and plan as documented. * Clinician Note - Rosalind Sanchez PT - 12/20/2023 8:33 AM EDT Physical Therapy Attempt Patient Name: Robert Hurley Today's Date: 12/20/2023 Patient was attempted to be seen by physical therapy 12/20/2023 for PT Treatment however patient refused. Physical therapy team will follow-up as patient is agreeable. Written by Rosalind Sanchez PT on 12/20/23 at 8:33 AM. * Clinician Note - Amanda Barriga - 12/20/2023 8:30 AM EDT Occupational Therapy Attempt Patient Name: Robert Hurley Today's Date: 12/20/2023 Patient was attempted to be seen by occupational therapy 12/20/2023 for OT however patient refused. Occupational therapy team will follow-up . Written by Amanda Barriga on 12/20/23 at 8:30 AM. * Care Plan - Jason Pedro - 12/20/2023 5:10 AM EDT Problem: Adult Inpatient Plan of Care [...] Outcome: Ongoing, Progressing * Progress Notes - Robert Nevarez MD - 12/19/2023 12:57 PM EDT Images from the original note were not included. INPATIENT CARDIOLOGY ([facility]) DAILY PROGRESS NOTE SUBJECTIVE NAEO. Patient continues to report some improvement in his pain, swelling, respiratory status. Review of Systems All other systems reviewed and are negative. OBJECTIVE Vitals Visit Vitals BP (!) 145/83 Pulse 92 Temp 36.7 ??C (98.1 ??F) Ht 1.829 m (6') Wt 101 kg (222 lb 3.6 oz) SpO2 97% BMI 30.14 kg/m?? Intake/Output Summary (Last 24 hours) at 12/19/2023 1258 Last data filed at 12/19/2023 1254 Gross per 24 hour Intake 929.93 ml Output 5500 ml Net -4570.07 ml Net IO Since Admission: -10,592.74 mL [12/19/23 1258] O2 Delivery Method: Nasal cannula Physical Exam: Physical Exam Vitals reviewed. Constitutional: Appearance: Normal appearance. He is obese. He is not ill-appearing. HENT: Head: Normocephalic. Nose: No congestion. Mouth/Throat: Mouth: Mucous membranes are moist. Pharynx: Oropharynx is clear. Eyes: Extraocular Movements: Extraocular movements intact. Pupils: Pupils are equal, round, and reactive to light. Cardiovascular: Rate and Rhythm: Normal rate and regular rhythm. Heart sounds: Murmur heard. No friction rub. No gallop. Pulmonary: Effort: Pulmonary effort is normal. Breath sounds: Rales present. No wheezing or rhonchi. Abdominal: General: There is distension. Palpations: Abdomen is soft. Tenderness: There is no abdominal tenderness. There is no guarding. Genitourinary: Comments: Scrotal edema present Musculoskeletal: Comments: 1-2+ pitting edema to the thigh L AKA noted Skin: General: Skin is warm and dry. Findings: No rash. Neurological: General: No focal deficit present. Mental Status: He is alert. Mental status is at baseline. Psychiatric: Mood and Affect: Mood normal. Behavior: Behavior normal. Labs and Imaging Labs in last 18 hours CBC WBC 4.07 Hb 8.9 (L) Plt 211 Hct 29.5 (L) ANC 2.60 INR ??, PTT ??, Anti-Xa ?? BMP Na 139 Cl 101 BUN 69 (H) Glu 148 (H) K 4.6 Co2 27 Cr 3.07 (H) Ca 8.4 (L) iCa ?? Mg 2.0, Phos 3.5 Lactate ?? LFT AST ?? AlkPhos ?? T Prot ?? ALK ?? Bili ?? Alb ?? D.Bili ?? CXR: Cardiomegaly with atelectatic changes in the lung bases. Small bilateral pleural effusions. Echo: Pending Most recent Echocardiogram (10/30/23): Normal sized left ventricle. Moderate left ventricular hypertrophy. Visually estimated ejection fraction 15% +/- 5%. Increased left atrial pressure (Grade II diastolic dysfunction). Dilated right ventricle. Moderate (2+) mitral regurgitation. Mild aortic valve regurgitation. Suspect low-flow low-gradient aortic stenosis. Moderate (2+) tricuspid regurgitation. Moderate pulmonary hypertension. ECG/Telemetry: Normal sinus rhythm, no acute signs of ischemia RUQ U/S: FINDINGS: Grayscale: The liver is mildly coarse [...] Patent hepatic vasculature with appropriate flow directionality. ASSESSMENT/PLAN Robert Hurley is a 58 y.o. male with a past medical history of HFrEF, suspected COPD, CAMACHO cirrhosis, DM2, CKD4, prior L AKA, who presented to ED on 12/15 with worsening SOB and scrotal edema. Subsequently admitted to [facility] for ADHF. # Acute on chronic decompensated HF presumed ICM # HFrEF of unclear etiology # AHRF - NYHA III, Stage D - Recent admission to [facility] with ADHF, TTE at facility with EF 15%, concern for aortic insufficiency- discharged on life vest although he has apparently lost this - On Toprol 75 mg daily, Isordil 10 mg TID, Hydralazine 10 mg daily with Bumex 1mg BID day before discharge from [facility]. Discharged med- rec unclear. Pt states he is taking meds consistently - Reports worsening SOB post discharge, CXR [place] signs [place] [id number], Trops flat, increasing O2 req ED- 4l via NC (on 2l outpatient), clinical signs of volume on exam - Was seen by EP at [facility], lost life vest- plan for outpatient AICD f/u - Hx of NSTEMI 02/18- on DAPT for a period of time - Diuresed with Bumex 2mg IV overnight. PLAN: - Continue bolus strategy of IV diuresis with Bumex 4 mg. - Increasing hydralazine and IDN for afterload reduction, restart metoprolol tomorrow; will consider further uptitration of GDMT as volume status improves - Resume statin - EP recommening ICD placement early next week. - TTE ordered # KOKO on CKD stage 4 - sCr on presentation 3.32/BUN 74- baseline sCr appears to be around 2.8-3.2 - urine with large amount of protein and glucose - asymptomatic froma uremia standpoint PLAN: - Diuresis as above # T2DM - on lantus 10units HS and SSI at [facility] - A1C 6.6 in 06/19, now 8.0 11/2023 PLAN: - Increase Lantus to 12u qhs + SSI # CAMACHO Cirrhosis - MELD 20 - found on ultrasound 2020, no follow-ups since that time, - no known hx of HE/EV/SBP/HCC, - does report paracentesis recently- unclear hx - RUQ U/S results as above. PLAN: - Distension appears to be improving with diuresis. Chronic Diabetic Neuropathy- Gabapentin reinitiated HTN: hypertensive on admission, adherence unclear Chronic Hep B: previously on entecavir Normocytic anemia iso CKD and CHF- IV iron L AKA due cellulitis and abscess 2018 COPD- unclear if pt has had PFTs, long hx of tobacco use, quit smoking since 08/19- PRN duo-nebs ordered DVT ppx: Heparin Code Status: Full Dispo: Admit to [facility]. Robert Nevarez MD, PGY-1 Internal Medicine 12/19/2023 12:58 PM Cosigned by Tian Mattson MD at 12/19/2023 3:26 PM EDT Associated attestation - Tian Mattson MD - 12/19/2023 3:26 PM EDT I saw and evaluated the patient with the resident/fellow. I discussed the case with the resident/fellow and agree with the findings and plan as documented. * Care Plan - ReinaSusan freeman - 12/19/2023 10:18 AM EDT Problem: Adult Inpatient Plan of Care Goal: Plan of Care Review Outcome: Ongoing, Progressing Flowsheets (Taken 12/19/2023 1018) Progress: no change Plan of Care Reviewed With: patient Goal: Patient-Specific Goal (Individualized) Outcome: Ongoing, Progressing Goal: Absence of Hospital-Acquired Illness or Injury Outcome: Ongoing, Progressing Goal: Optimal Comfort and Wellbeing Outcome: Ongoing, Progressing Goal: Readiness for Transition of Care Outcome: Ongoing, Progressing Problem: Infection Goal: Absence of Infection Signs and Symptoms Outcome: Ongoing, Progressing Problem: Fluid Volume Excess Goal: Fluid Balance Outcome: Ongoing, Progressing * Progress Notes - Robert Nevarez MD - 12/18/2023 3:50 PM EDT Images from the original note were not included. INPATIENT CARDIOLOGY ([facility]) DAILY PROGRESS NOTE SUBJECTIVE This afternoon did experience some chest pain that was relieved with belching and was reproducible with palpation. EKG performed and did not show any new changes compared with prior. Patient given lidocaine patch and GI cocktail. NAEO. Swelling has minimally improved with Bumex gtt. Review of Systems All other systems reviewed and are negative. OBJECTIVE Vitals Visit Vitals BP (!) 141/77 Pulse 96 Temp 36.7 ??C (98.1 ??F) (Oral) Ht 1.829 m (6') Wt 103 kg (227 lb 15.3 oz) SpO2 98% BMI 30.92 kg/m?? Intake/Output Summary (Last 24 hours) at 12/18/2023 1551 Last data filed at 12/18/2023 1500 Gross per 24 hour Intake 1004.26 ml Output 6250 ml Net -5245.74 ml Net IO Since Admission: -6,954.74 mL [12/18/23 1551] O2 Delivery Method: Nasal cannula FiO2 (%): 28 % Physical Exam: Physical Exam Vitals reviewed. Constitutional: Appearance: Normal appearance. He is obese. He is not ill-appearing. HENT: Head: Normocephalic. Nose: No congestion. Mouth/Throat: Mouth: Mucous membranes are moist. Pharynx: Oropharynx is clear. Eyes: Extraocular Movements: Extraocular movements intact. Pupils: Pupils are equal, round, and reactive to light. Cardiovascular: Rate and Rhythm: Normal rate and regular rhythm. Heart sounds: Murmur heard. No friction rub. No gallop. Pulmonary: Effort: Pulmonary effort is normal. Breath sounds: Rales present. No wheezing or rhonchi. Abdominal: General: There is distension. Palpations: Abdomen is soft. Tenderness: There is no abdominal tenderness. There is no guarding. Genitourinary: Comments: Scrotal edema present Musculoskeletal: Comments: 3+ pitting edema to the adomen L AKA noted Skin: General: Skin is warm and dry. Findings: No rash. Neurological: General: No focal deficit present. Mental Status: He is alert. Mental status is at baseline. Psychiatric: Mood and Affect: Mood normal. Behavior: Behavior normal. Labs and Imaging Labs in last 18 hours CBC WBC 3.82 Hb 8.7 (L) Plt 201 Hct 28.1 (L) ANC 2.27 INR ??, PTT ??, Anti-Xa ?? BMP Na 139 Cl 104 BUN 68 (H) Glu 157 (H) K 4.8 Co2 25 Cr 3.19 (H) Ca 8.0 (L) iCa ?? Mg 1.9, Phos ?? Lactate ?? LFT AST ?? AlkPhos ?? T Prot ?? ALK ?? Bili ?? Alb ?? D.Bili ?? CXR: Cardiomegaly with atelectatic changes in the lung bases. Small bilateral pleural effusions. Echo: Pending Most recent Echocardiogram (10/30/23): Normal sized left ventricle. Moderate left ventricular hypertrophy. Visually estimated ejection fraction 15% +/- 5%. Increased left atrial pressure (Grade II diastolic dysfunction). Dilated right ventricle. Moderate (2+) mitral regurgitation. Mild aortic valve regurgitation. Suspect low-flow low-gradient aortic stenosis. Moderate (2+) tricuspid regurgitation. Moderate pulmonary hypertension. ECG/Telemetry: Normal sinus rhythm, no acute signs of ischemia RUQ U/S: FINDINGS: Grayscale: The liver is mildly coarse [...] Patent hepatic vasculature with appropriate flow directionality. ASSESSMENT/PLAN Robert Hurley is a 58 y.o. male with a past medical history of HFrEF, suspected COPD, CAMACHO cirrhosis, DM2, CKD4, prior L AKA, who presented to ED on 12/15 with worsening SOB and scrotal edema. Subsequently admitted to [facility] for ADHF. # Acute on chronic decompensated HF presumed ICM # HFrEF of unclear etiology # AHRF - NYHA III, Stage D - Recent admission to [facility] with ADHF, TTE at facility with EF 15%, concern for aortic insufficiency- discharged on life vest although he has apparently lost this - On Toprol 75 mg daily, Isordil 10 mg TID, Hydralazine 10 mg daily with Bumex 1mg BID day before discharge from [facility]. Discharged med- rec unclear. Pt states he is taking meds consistently - Reports worsening SOB post discharge, CXR [place] signs [place] [address], Trops flat, increasing O2 req ED- 4l via NC (on 2l outpatient), clinical signs of volume on exam - Was seen by EP at [facility], lost life vest- plan for outpatient AICD f/u - Hx of NSTEMI 02/18- on DAPT for a period of time - Diuresed with Bumex 2mg IV overnight. PLAN: - Bumex gtt transitioned to 4 mg IV, will attempt to diurese him multiple times per day. - Increasing hydralazine and IDN for afterload reduction; will consider further uptitration of GDMTas volume status improves - Resume statin - EP recommening ICD placement early next week. - TTE ordered # KOKO on CKD stage 4 - c/f cardiorenal syndrome - sCr on presentation 3.32/BUN 74- baseline sCr appears to be around 2.8-3.2 - urine with large amount of protein and glucose - asymptomatic froma uremia standpoint PLAN: - diuresis as above - Upr/CR and studies ordered # T2DM - on lantus 10units HS and SSI at [facility] - A1C 6.6 in 06/19, now 8.0 11/2023 PLAN: - will start with Lantus 5 units HS + SSI # CAMACHO Cirrhosis - MELD 20 - found on ultrasound 2020, no follow-ups since that time, - no known hx of HE/EV/SBP/HCC, - does report paracentesis recently- unclear hx - RUQ U/S results as above. PLAN: - clarify hx of paracentesis with patient - Will continue to monitor his distension with diuresis Chronic Diabetic Neuropathy- Gabapentin reinitiated HTN: hypertensive on admission, adherence unclear; await med-rec Chronic Hep B: previously on entecavir, unclear if taking- await med-rec Normocytic anemia iso CKD and CHF- IV iron L AKA due cellulitis and abscess 2019 COPD- unclear if pt has had PFTs, long hx of tobacco use, quit smoking since 08/19- PRN duo-nebs ordered DVT ppx: Heparin Code Status: Full Dispo: Admit to [facility]. Robert Nevarez MD, PGY-1 Internal Medicine 12/18/2023 3:51 PM Cosigned by Tian Mattson MD at 12/19/2023 3:26 PM EDT Associated attestation - Tian Mattson MD - 12/19/2023 3:26 PM EDT I saw and evaluated the patient with the resident/fellow. I discussed the case with the resident/fellow and agree with the findings and plan as documented. * Care Plan - Susan Iraheta - 12/18/2023 9:57 AM EDT Problem: Adult Inpatient Plan of Care Goal: Plan of Care Review Outcome: Ongoing, Progressing Flowsheets (Taken 12/18/2023 0956) Progress: no change Plan of Care Reviewed With: patient Goal: Patient-Specific Goal (Individualized) Outcome: Ongoing, Progressing Goal: Absence of Hospital-Acquired Illness or Injury Outcome: Ongoing, Progressing Goal: Optimal Comfort and Wellbeing Outcome: Ongoing, Progressing Goal: Readiness for Transition of Care Outcome: Ongoing, Progressing Problem: Infection Goal: Absence of Infection Signs and Symptoms Outcome: Ongoing, Progressing Problem: Fluid Volume Excess Goal: Fluid Balance Outcome: Ongoing, Progressing * Progress Notes - Estelle Mejias - 12/18/2023 8:57 AM EDT Case Management Adult Progress Note Robert Hurley 58 y.o. male CSN: [id number] Admission: 12/16/2023 5:50 PM Primary Problem: Acute decompensated heart failure (CMS/HCC) Additional Comments SW reviewed CM handoff tool. POC discussed with pt's primary team. Per MD, this pt is not medicallyready for discharge on today. CM will continue to follow for discharge needs. Estelle Mejias * Progress Notes - Zach Ruvalcaba PharmD - 12/17/2023 10:09 PM EDT Medication Dosing Consult HPI and Hospital Course: Robert Hurley is a 58 y.o. male admitted for Acute decompensated heart failure (CMS/HCC). Pharmacy consulted to assist with management of vancomycin indicated for bacteremia. An individualized dose was entered on behalf of the requesting MD/MARILUZ. Details are listed below: Ht: Ht Readings from Last 1 Encounters: 12/17/23 1.829 m (6') Wt: Wt Readings from Last 1 Encounters: 12/17/23 103 kg (227 lb 15.3 oz) Creatinine: Creatinine, Plasma (mg/dL) Date/Time Value 12/17/2023 1419 2.81 (H) 12/17/2023 0147 3.18 (H) WBC: WBC Count (10*3/uL) Date/Time Value 12/17/2023 0147 5.24 12/16/2023 1842 6.37 CrCl: Estimated Creatinine Clearance: 36.5 mL/min (A) (by C-G formula based on SCr of 2.81 mg/dL (H)). Dose/Route/Frequency: Vancomycin 1750 mg IV once (~22 mg/kg AdjBW) Vancomycin 1000 mg IV every 24 hours (~12 mg/kg AdjBW) Comments: Recent vancomycin history in chart: No. Based on patient age and creatinine clearance, opted for q24h regimen. Kinetics navigator predicts AUC of 494 on this regimen. Patient also qualifiesas obese with BMI of 31, vancomycin obesity calculator also recommends this maintenance regimen with Clv of 2. Primary team pharmacist will continue to follow with dosing and monitoring recommendations as appropriate. Thank you, Zach Ruvalcaba PharmD, BCPS 12/17/23 10:07 PM * Consults - Neeta Hicks RD - 12/17/2023 3:41 PM EDT Nutrition Education Consult Multiple attempts to visit with pt to provide HF nutrition teaching, per consult. Pt has been busy with other staff/providers at each attempt. Will follow up prior to discharge. Neeta Hicks RD * Consults - Tiera Bellamy RD - 12/17/2023 1:46 PM EDT Adult Nutrition Evaluation Note Robert Hurley 58 y.o. male CSN: [id number] Room/Bed 674/674B Nutrition evaluation type: assessment Reason for evaluation: nurse consult - burn/pressure injury/non-healing wound, poor appetite Hospital course: 58 y.o. male with PMH significant for HFrEF, suspected COPD, CAMACHO cirrhosis, DM2, CKD4, prior L AKA, who presented to ED on 12/15 with worsening SOB and scrotal edema. Subsequently admitted to [facility] for ADHF. Past medical/ surgical history: Past 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: Diagnosis Date Personal history [...] mental and behavioral disorders History of depression HFrEF, suspected COPD, CAMACHO cirrhosis, DM2, CKD4, prior L AKA noted per H&P Past Surgical History: Procedure Laterality Date CATH STENT PLACEMENT/ CATH PLACEMENT OF STENT N/A Cath Stent Placement from [facility] CHOLECYSTECTOMY N/A Cholecystectomy from [facility] Social history: Smoker Additional comments: Other staff working with pt at time of attempted visit this morning. RD will attempt to visit pt/complete NFPE again on follow-up as able. Pt noted with fair intakes per flowsheet documentation - 75% of last 2 intakes documented, will continue to monitor. Vitals and Basic Assessment: BP: (!) 154/89 Temp: 36.6 ??C (97.9 ??F) Oxygen Therapy: Supplemental oxygen O2 Delivery Method: Nasal cannula Mariela Coma Scale Score: 15 Prashanth Scale Score: 15 Last BM Date: 12/17/23 Edema: Generalized, Right upper extremity, Left upper extremity, Right lower extremity, Left lower extremity (scrotum) Allergies: NKFA Medications: aspirin, 81 mg, Oral, Daily atorvastatin, 80 mg, Oral, Nightly gabapentin, 400 mg, Oral, TID heparin (porcine), 5,000 Units, Subcutaneous, q8h ARIEL hydrALAZINE, 50 mg, Oral, q8h ARIEL insulin glargine-yfgn, 5 Units, Subcutaneous, Nightly insulin lispro, 0-5 Units, Subcutaneous, TID with meals insulin lispro, 0-3 Units, Subcutaneous, Twice at night ipratropium-albuterol, 3 mL, Nebulization, q6h RT isosorbide dinitrate, 20 mg, Oral, q8h ARIEL Povidone-Iodine, 1 Swab, Nasal, Daily sodium chloride, 10 mL, Intravenous, q12h bumetanide, 1 mg/hr, Last Rate: 1 mg/hr (12/17/23 0952) PRN medications: acetaminophen, albuterol, glucose OR dextrose 10 % OR glucagon (human recombinant), guaiFENesin, [COMPLETED] Insert peripheral IV AND [COMPLETED] Saline lock IV AND sodium chloride AND sodium chloride Meds were reviewed: Yes Labs: Labs in last 18 hours CBC WBC 5.24 Hb 9.8 (L) Plt 210 Hct 31.2 (L) ANC ?? INR 1.2 (H), PTT 30, Anti-Xa ?? BMP Na 139 Cl 108 (H) BUN 70 (H) Glu 267 (H) K 5.1 (H) Co2 22 Cr 3.18 (H) Ca 8.1 (L) iCa 4.5 (L) Mg 2.1, Phos ?? Lactate ?? LFT AST 32 AlkPhos 154 (H) T Prot 5.6 (L) ALK 11 Bili 0.4 Alb ?? D.Bili ?? High K+ (5.1) noted 12/16 - monitor trends BUN/Cr elevated Lab Results Component Value Date HGBA1C 8.0 (H) 12/17/2023 Pt's A1C in diabetic range Lab Results Component Value Date CALCIUM 8.1 (L) 12/17/2023 PHOS 3.8 06/17/2023 Lab Results Component Value Date ALBUMIN 2.9 (L) 12/17/2023 Albumin is a negative acute-phase reactant, so it is not a good indicator of nutrition status. No results found for: CRP Lab Results Component Value Date CHOL 136 12/17/2023 CHOL 237 (H) 06/16/2023 CHOL 141 04/05/2019 TRIG 112 12/17/2023 TRIG 188 (H) 06/16/2023 TRIG 141 04/05/2019 HDL 51 12/17/2023 HDL 53 06/16/2023 HDL 51 04/05/2019 LDLCALC 65 12/17/2023 LDLCALC 150 (H) 06/16/2023 LDLCALC 62 04/05/2019 Anthropometrics: Height: 182.9 cm (6') Weight: 103 kg (227 lb 15.3 oz) BMI (Calculated): 30.91 Weight Evaluation: Obese-Class 1 (BMI 30-34.9) [place] Body Weight (kg): 72 (adjusted for AKA) Percent [place] Body Weight: 143 Adjusted Body Weight (kg): 79.8 Wt Readings from Last 10 Encounters: 12/17/23 103 kg (227 lb 15.3 oz) 06/16/23 104 kg (228 lb 2.8 oz) 03/23/23 92.1 kg (203 lb 0.7 oz) 02/11/23 79.5 kg (175 lb 4.3 oz) 03/08/20 89.2 kg (196 lb 9.4 oz) 04/19/19 72.6 kg (160 lb 0.2 oz) 06/23/17 112 kg (246 lb 7.6 oz) 05/25/17 104 kg (228 lb 6.3 oz) 05/11/17 101 kg (222 lb 3.6 oz) 02/07/16 90.8 kg (200 lb 2.1 oz) Estimated Needs: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 once daily as needed for weight gain of 3 pounds in 1 day or 5 pounds in 1 week. gabapentin (NEURONTIN) 600 mg, Oral, 3 times daily hydrALAZINE (APRESOLINE) 50 mg, Oral, 3 times daily (0600, 1200 & 1800) insulin glargine (LANTUS) 13 Units, Subcutaneous, Nightly isosorbide dinitrate (ISORDIL) 40 mg, Oral, 3 times daily (0600, 1200 & 1800) mometasone-formoterol (Dulera 100) 100-5 MCG/ACT inhaler 2 puffs, Inhalation, 2 times daily, Rinse mouth with water after use to reduce aftertaste and incidence of candidiasis. Do not swallow. nitroglycerin (NITROSTAT) 0.4 mg, Sublingual, Every 5 min PRN NovoLOG FlexPen ReliOn 6 Units, Subcutaneous, 3 times daily Umeclidinium [place] (Incruse Ellipta) 62.5 MCG/ACT aerosol powder 1 Inhalation, Inhalation, Daily OBJECTIVE Blood pressure (!) 155/90, pulse 84, temperature 36.8 ??C (98.2 ??F), resp. rate 20, height 1.829 m(6'), weight 103 kg (227 lb 15.3 oz), SpO2 97%. Physical Exam Constitutional: Appearance: He is toxic-appearing. Cardiovascular: Rate and Rhythm: Tachycardia present. Comments: Systolic murmur 2/6 auscultated Pulmonary: Effort: Respiratory distress present. Breath sounds: Rhonchi present. Abdominal: General: There is distension. Musculoskeletal: Right lower leg: Edema present. Comments: L AKA R limb with chronic venous stasis, weeping edema, woody induration Skin: General: Skin is warm. Capillary Refill: Capillary refill takes 2 to 3 seconds. Neurological: Mental Status: He is oriented to person, place, and time. Results / Imaging Results from last 7 days Lab Units 12/17/23 0147 SODIUM mmol/L 139 POTASSIUM mmol/L 5.1* CHLORIDE mmol/L 108* CO2 mmol/L 22 BUN mg/dL 70* CREATININE mg/dL 3.18* CALCIUM mg/dL 8.1* BILIRUBIN TOTAL mg/dL 0.4 ALKALINE PHOSPHATASE U/L 154* ALT U/L 11 AST U/L 32 GLUCOSE mg/dL 267* Results from last 7 days Lab Units 12/17/23 0147 WBC 10*3/uL 5.24 HEMOGLOBIN g/dL 9.8* HEMATOCRIT % 31.2* PLATELETS 10*3/uL 210 Most recent Echocardiogram (10/30/23): Normal sized left ventricle. Moderate left ventricular hypertrophy. Visually estimated ejection fraction 15% +/- 5%. Increased left atrial pressure (Grade II diastolic dysfunction). Dilated right ventricle. Moderate (2+) mitral regurgitation. Mild aortic valve regurgitation. Suspect low-flow low-gradient aortic stenosis. Moderate (2+) tricuspid regurgitation. Moderate pulmonary hypertension. ECG/Telemetry: Normal sinus rhythm, no acute signs of ischemia ASSESSMENT/PLAN Robert Hurley is a 58 y.o. male with a past medical history of HFrEF, suspected COPD, CAMACHO cirrhosis, DM2, CKD4, prior L AKA, who presented to ED on 12/15 with worsening SOB and scrotal edema. Subsequently admitted to [facility] for ADHF. # Acute on chronic decompensated HF presumed ICM # HFrEF of unclear etiology # AHRF - NYHA III, Stage D - recent admission to [facility] with ADHF, TTE at facility with EF 15%, concern for aortic insufficiency- discharged on life vest - on Toprol 75 mg daily, Isordil 10 mg TID, Hydralazine 10 mg daily with Bumex 1mg BID day before discharge from [facility]. Discharged med- rec unclear. Pt states he is taking meds consistently - reports worsening SOB post discharge, CXR [place] signs [place] [id number], Trops flat, increasing O2 req ED- 4l via NC (on 2l outpatient), clinical signs of volume on exam - was seen by EP at [facility], lost life vest- plan for outpatient AICD f/u - Hx of NSTEMI 02/18- on DAPT for a period of time P/ - diuresed with Bumex 2mg IV - will hold all other meds until futher med-rec - resume statin - consider EP consult (AICD) - TTE ordered # KOKO on CKD stage 4 - c/f cardiorenal syndrome - sCr on presentation 3.32/BUN 74- baseline sCr appears to be around 2.8-3.2 - urine with large amount of protein and glucose - asymptomatic froma uremia standpoint P/ - diuresis as above - Upr/CR and studies ordered # T2DM - on lantus 10units HS and SSI at [facility] - A1C 6.6 in 06/19 P/ - will start with Lantus 5 units HS + SSI - A1C ordered # CAMACHO Cirrhosis - MELD 20 - found on ultrasound 2020, no follow-ups since that time, - no known hx of HE/EV/SBP/HCC, - does report paracentesis recently- unclear hx P/ - RUQ US ordered - clarify hx of paracentesis with patient Chronic Diabetic Neuropathy- Gabapentin reinitiated HTN: hypertensive on admission, adherence unclear; await med-rec Chronic Hep B: previously on entecavir, unclear if taking- await med-rec Normocytic anemia iso CKD and CHF- iron studies ordered L AKA due cellulitis and abscess 2018 COPD- unclear if pt has had PFTs, long hx of tobacco use, quit smoking since 08/19- PRN duo-nebs ordered DVT ppx: Heparin Code Status: Full Dispo: Admit to [facility] PGY4, IM-Psych Cosigned by Tian Mattson MD at 12/19/2023 3:20 PM EDT Associated attestation - Tian Mattson MD - 12/19/2023 3:20 PM EDT I saw and evaluated the patient with the resident/fellow. I discussed the case with the resident/fellow and agree with the findings and plan as documented. Acute on chronic combined heart failure with severe volume overload complicated by CKD stage IV. Diuresis with monitoring of electrolytes and renal function. * ED Procedure Note - Parag Kirkpatrick DO - 12/16/2023 5:49 PM EDTAssociated Order(s): POCUS - ED USE ONLY Procedure Reason: Lower Extremity Edema POCUS - ED USE ONLY Performed by: Parag Kirkpatrick DO Authorized by: Jakob Phipps MD Procedure specific details: Limited Cardiac Ultrasound A focused ultrasound of [...] size: less than 1:1 RV/LV ratio Other: Impression: Severely Diminished LV function The images were Saved in PACS. The study was technically adequate. Comments: Parag Kirkpatrick DO Resident 12/28/23 1313 Cosigned by Carmencita Slaughter MD at 12/28/2023 4:24 PM EDT Associated attestation - Carmencita Slaughter MD - 12/28/2023 4:24 PM EDT By electronically signing this report, I, the attending physician, attest that I have personally reviewed the image(s) for the above examination(s) and agree with the final edited report. * ED Provider Notes - Parag Kirkpatrick DO - 12/16/2023 5:49 PM EDT Images from the original note were not included. - HPI Chief Complaint Patient presents with Swelling This is a 58-year-old male patient, with past medical history of systolic heart failure, CKD, aortic stenosis, MASH cirrhosis, and diabetes, who is presenting to the emergency department today with complaints of edema. The patient was recently admitted to [facility] and found to have an EF of 20-25% he was then transferred to [facility] with a repeated an echo and found himhaving an EF of 15%. At that time their plan was to optimize him medically and eventually place an AICD. He ended up being discharged with a life vest. During admission he also was treated for chronic venous stasis and superficial ulcers isolated Klebsiella and Enterobacter for which he was treated with doxy and Keflex. Today the patient presents for severe scrotal swelling with swelling of his right lower extremity extending up to the level of his abdomen. He tells me that he does have a history of MASH cirrhosis but has never required a paracentesis in the past. Patient states that he stopped wearing his LifeVest after being discharged from the outside hospital because it did not fit me . He is currently not feeling a subjective sense of dyspnea and he is not having chest pain or palpitations. Patient History Past 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: Diagnosis Date [...] drug use Allergies: Allergies Allergen Reactions Penicillins Rash Rash as a child. Has received ceftriaxone in past without reaction Physical Exam ED Triage Vitals [12/16/23 1759] Temp Heart Rate Resp BP 36.7 ??C (98 ??F) 90 18 (!) 148/93 SpO2 Temp Source Heart Rate Source Patient Position 97 % Oral -- Sitting BP Location FiO2 (%) Right arm -- Physical Exam Vitals and nursing note reviewed. Constitutional: General: He is not in acute distress. Appearance: He is well-developed. HENT: Head: Normocephalic and atraumatic. Eyes: Conjunctiva/sclera: Conjunctivae normal. Cardiovascular: Rate and Rhythm: Normal rate and regular rhythm. Heart sounds: No murmur heard. Pulmonary: Effort: Pulmonary effort is normal. Comments: Decreased breath sounds in lung pandey bilateral Abdominal: Palpations: Abdomen is soft. Tenderness: There is no abdominal tenderness. Musculoskeletal: Cervical back: Neck supple. Comments: Significant right lower extremity edema extending up to the level of the abdomen Skin: General: Skin is warm and dry. Capillary Refill: Capillary refill takes less than 2 seconds. Neurological: Mental Status: He is alert. Psychiatric: Mood and Affect: Mood normal. [place] Coma Scale Score: 15 ED Course & MDM - Assessment: 58 y.o. male presents to ED with complaint of severe lower extremity swelling and scrotal. It should be noted that the chronic conditions includes heart failure with reduced ejection fraction, which currently is not at goal therapy. This complicates the clinical picture because it Comorbidities: may be exacerbating symptoms and increases the risk for morbidity On initial evaluation of the patient he was sitting upright no acute distress and was nontoxic in appearance. He is hemodynamically stable, saturating well on room air, in his neurologically intact. The patient does have significant penile scrotal swelling as well as swelling of his right lower extremity with venous stasis dermatitis present. Differential Diagnosis: Heart failure exacerbation, ACS/OR, pulmonary edema, pleural effusion, pneumonia, spontaneous bacterial peritonitis, others In order to fully explore the differential diagnosis the following treatments and tests were ordered: All Other Orders Ordered Status Ordering Provider 12/17/23 0049 Basic metabolic panel Morning draw Order ID Start Status Ordering Provider [id number] 12/18/23 0400 Acknowledged KALEKA, KULTAJ 12/19/23 0400 Scheduled KALEKA, KULTAJ 12/20/23 0400 Scheduled KALEKA, KULTAJ 12/21/23 0400 Scheduled KALEKA, KULTAJ 12/22/23 0400 Scheduled KALEKA, KULTAJ 12/23/23 0400 Scheduled KALEKA, KULTAJ 12/24/23 0400 Scheduled KALEKA, KULTAJ 12/25/23 0400 Scheduled KALEKA, KULTAJ 12/26/23 0400 Scheduled KALEKA, KULTAJ 12/27/23 0400 Scheduled KALEKA, KULTAJ Acknowledged KALEKA, KULTAJ 12/17/23 0049 Magnesium Morning draw Order ID Start Status Ordering Provider [id number] 12/18/23 0400 Acknowledged KALEKA, KULTAJ 12/19/23 0400 Scheduled KALEKA, KULTAJ 12/20/23 0400 Scheduled KALEKA, KULTAJ 12/21/23 0400 Scheduled KALEKA, KULTAJ 12/22/23 0400 Scheduled KALEKA, KULTAJ 12/23/23 0400 Scheduled KALEKA, KULTAJ 12/24/23 0400 Scheduled KALEKA, KULTAJ 12/25/23 0400 Scheduled KALEKA, KULTAJ 12/26/23 0400 Scheduled KALEKA, KULTAJ 12/27/23 0400 Scheduled KALEKA, KULTAJ Acknowledged KALEKA, KULTAJ 12/17/23 0049 Phosphorus Morning draw Order ID Start Status Ordering Provider [id number] 12/18/23 0400 Acknowledged KALEKA, KULTAJ 12/19/23 0400 Scheduled KALEKA, KULTAJ 12/20/23 0400 Scheduled KALEKA, KULTAJ 12/21/23 0400 Scheduled KALEKA, KULTAJ 12/22/23 0400 Scheduled KALEKA, KULTAJ 12/23/23 0400 Scheduled KALEKA, KULTAJ 12/24/23 0400 Scheduled KALEKA, KULTAJ 12/25/23 0400 Scheduled KALEKA, KULTAJ 12/26/23 0400 Scheduled KALEKA, KULTAJ 12/27/23 0400 Scheduled KALEKA, KULTAJ Acknowledged KALEKA, KULTAJ 12/17/23 0049 CBC W/O Differential Morning draw Order ID Start Status Ordering Provider [id number] 12/18/23 0400 Canceled KALEKA, KULTAJ 12/19/23 0400 Scheduled KALEKA, KULTAJ 12/20/23 0400 Scheduled KALEKA, KULTAJ 12/21/23 0400 Scheduled KALEKA, KULTAJ 12/22/23 0400 Scheduled KALEKA, KULTAJ 12/23/23 0400 Scheduled KALEKA, KULTAJ 12/24/23 0400 Scheduled KALEKA, KULTAJ 12/25/23 0400 Scheduled KALEKA, KULTAJ 12/26/23 0400 Scheduled KALEKA, KULTAJ 12/27/23 0400 Scheduled KALEKA, KULTAJ Acknowledged KALEKA, KULTAJ 12/17/23 0049 Morning draw Canceled KALEKA, KULTAJ 12/17/23 0049 Vital Signs Every 4 hours Comments: Do not awaken patient during the night for vital sign checks. Acknowledged KALEKA KULTAJ 12/17/23 0049 Check pulse oximetry Every 4 hours Acknowledged KALDARRENA KULTAJ 12/17/23 0049 Intake and output Every 4 hours Acknowledged KALDARRENALAURALTAJ 12/17/23 004 Daily weights Daily Comments: Patient should be weighed every morning after their first void. Acknowledged MARCIO SCRUGGS 12/17/23 004 Oxygen Therapy - Device: Nasal Cannula Continuous Comments: Please place on supplemental O2 for SpO2 <93% on room air. Order ID Start Status Ordering Provider [id number] 12/17/23 0050 Completed MARCIO SCRUGGS [id number] 12/17/23 08 Completed CONSUELOEKAMAIRAABaljeet [id number] 12/17/231999 Completed CONSUELOMARCIO TREVINO [id number] 12/18/23 0800 Acknowledged CONSUELOEKALAURALTAJ 12/18/231999 Scheduled KALEKALAURALTAJ 12/19/23 0800 Scheduled KALEKA, LAURALTAJ 12/19/231999 Scheduled CONSUELOEKALAURALTAJ 12/20/23 0800 Scheduled KALEKA, LAURALTAJ 12/20/231999 Scheduled KALEKALAURALTAJ 12/21/23 0800 Scheduled KALEKA, KULTAJ 12/21/231999 Scheduled KALEKA, KULTAJ Acknowledged JUAN DIEGOALAURALTAJ 12/17/23 004 SARS CoV-2/COVID-19 by PCR Once Final result MARCIO SCRUGGS 12/17/23 004 Adult ICU/PC Low-Intensity Electrolyte Replacement Protocol Until discontinued Acknowledged MAIRA SCRUGGSABaljeet 12/17/2348 Do Not Give Nicotine Replacement Until discontinued Acknowledged MAIRA SCRUGGSABaljeet 12/17/23 004 Diet effective now Canceled MAIRA SCRUGGSABaljeet 12/17/2348 Admit to inpatient Once Completed MAIRA SCRUGGSABaljeet 12/17/23 004 Mobility Orders Until discontinued Acknowledged MAIRA SCRUGGSABaljeet 12/17/2348 Notify physician (specify parameters) Until discontinued Acknowledged MAIRA SCRUGGSABaljeet 12/17/2348 Telemetry Monitoring for Acute Heart Failure/Pulmonary Edema Until discontinued Acknowledged MAIRA SCRUGGSABaljeet 12/17/2348 Insert peripheral IV Once Placed in And Linked Group Completed MAIRA SCRUGGSABaljeet 09/20/24 0049 Saline lock IV Once Placed in And Linked Group Completed SHARITA SCRUGGSBaljeet 12/17/23 004 Inpatient Consult to Nutrition Services Once Comments: Patient Education: Heart failure dietary education (sodium limits, reading labels, etc). Provider: (Not yet assigned) Acknowledged MARCIO SCRUGGS 12/17/23 0049 PT eval and treat Until therapy completed Acknowledged JUAN DIEGOChet SHARITABaljeet 12/17/23 0049 CBC W/O Differential STAT Final result SHARITA SCRUGGSBaljeet 12/17/23 004 Comprehensive metabolic panel STAT Final result SHARITA SCRUGGSBaljeet 12/17/23 004 Magnesium STAT Comments: If not done in ED. Final result SHARITA SCRUGGSBaljeet 12/17/23 004 N-Terminal Probnp STAT Comments: If not done in ED. Final result SHARITA SCRUGGSBaljeet 12/17/23 0049 Urinalysis, manual only STAT Final result SHARITA SCRUGGSBaljeet 12/17/23 004 Multi Drug Resistance Test Once In process CONSUELOURIEL SHARITABaljeet 12/17/23 004 ECG Adult Once Final result SHARITA SCRUGGSBaljeet 12/17/23 004 Sequential compression device Until discontinued Comments: SCDs must be in place and turned on EXCEPT when ACTIVELY ambulating. Acknowledged CONSUELOMARCIO TREVINO 12/17/23 004 Full code Continuous Comments: After discussion regarding the risks and benefits of available cardiopulmonary resuscitative measures, including CPR, medications, electric shocks, intubation, and ventilation, at this timept has elected to remain FULL CODE. Acknowledged MARCIO SCRUGGS 12/16/232055 Once Specialty: Cardiology Provider: (Not yet assigned) Canceled PARAG KIRKPATRICK 12/16/23 1938 Troponin T, High Sensitivity, 2 Hour, Plasma PROCEDURE ONCE Final result PARAG KIRKPATRICK 12/16/23 2020 ECG Adult Once Final result PARAG KIRKPATRICK 12/16/23 1833 XR Chest 1 View One time imaging Final result PARAG KIRKPATRICK 12/16/23 1833 CMP STAT Final result PARAG KIRKPATRICK 12/16/23 1833 CBC w/diff STAT Final result PARAG KIRKPATRICK 12/16/23 1833 Troponin now and 120 min STAT Final result PARAG KIRKPATRICK 12/16/23 1833 BNP STAT Final result PARAG KIRKPATRICK 12/16/23 1833 Thyroid Stimulating Hormone, Plasma STAT Final result PARAG KIRKPATRICK 12/16/23 1833 Free T4, Plasma STAT Final result PARAG KIRKPATRICK 12/16/23 1800 POCT glucose meter PROCEDURE ONCE Final result POCT, GENERIC PROVIDER I have performed a bedside ultrasound of the patient's heart which shows an extremely depressed ejection fraction. The RV to LV ratio is approximately 1 and there was no pericardial effusion. I have also performed a bedside ultrasound of the patient's abdomen and there was no significant ascites present which would be safe to perform a paracentesis 4. Labs personally interpreted by me demonstrate a proBNP of 64,000, the patient also has a bump in his creatinine with prerenal azotemia. Otherwise there was no actionable abnormalities at this time. Chest x-ray personally interpreted by me demonstrates no lobar consolidation. Official radiology read in agreement states that they are small bilateral pleural effusions. Clinical Impressions as of 12/17/231949 Acute on chronic systolic congestive heart failure (CMS/HCC) EKG personally interpreted by me demonstrates normal sinus rhythm with a rate of 90 beats per minute, borderline left axis, no OR prolongation, narrow QRS, no QTC prolongation. There was no ST elevation or deviation Social Determinates of Health Risks (including Economic Stability, Education and level of understanding, Healthcare access and quality and concerning social factors): None identified on this visit Ultimately, this patient was Was admitted (Admission) The encounter diagnosis was Acute on chronic systolic congestive heart failure (CMS/HCC).. Patient believed to require admission for the listed diagnoses. The Cardiology service was consulted for admission and was agreeable to admit to Acute Floor (Med/Surg). ED Prescriptions None Disposition Admit Admitting/Attending Physician: TIAN MATTSON [[id number]] Provider Care Team: CAR FLOOR/OBSERVATION [33] Are they the primary team?: Yes [1] - Parag Kirkpatrick DO Resident 12/17/231949 Cosigned by Carmencita Slaughter MD at 12/17/2023 9:58 PM EDT Associated attestation - Carmencita Slaughter MD - 12/17/2023 9:58 PM EDT I saw and evaluated the patient with the resident/fellow. I discussed the case with the resident/fellow and agree with the findings and plan as documented. * ED Triage Notes - Francisca Rodriguez, RN - 12/16/2023 5:49 PM EDT Pt presents for scrotal swelling for several weeks. Pt reports he was recently admitted at OSH for CHF exacerbation. Pt reports he is currently on lasix. PMH CHF COPD DM documented in this encounter Plan of Treatment Upcoming Encounters Date Type Department Care Team (Late st Contact Info) Description 03/07/2024 1:40 PM EST Office Visit [facility] [place] [address], [address] [place] [address] Naeem Blunt MD [address] [place] [address] Scheduled Referrals Name Type Priority Associated Diagnoses Orde r Schedule Discharge Ambulatory referral to [facility] Outpatient Referral Routine Acute decompensated heart failure (CMS/HCC) 1 Occurrences starting 12/25/2023 until 06/23/2025 documented as of this encounter Procedures Procedure Name Priority Date/Time Associated Diagnosis Comments POCT GLUCOSE METER UNSOLICITED RESULTS Routine 12/25/2023 [...] EXTRA TUBES Routine 12/17/2023 9:37 PM EDT BLOOD CULTURE (AEROBIC/ANAEROBIC SET) Routine 12/17/2023 9:11 PM EDT PHOSPHORUS, PLASMA Routine 12/17/2023 9: 11 PM EDT MAGNESIUM, PLASMA Routine 12/17/2023 9:1 1 PM EDT BASIC METABOLIC PANEL, PLASMA Routine 12/17/2023 9:11 PM EDT OXYGEN THERAPY Routine 12/17/2023 8:00 PM EDT POCT GLUCOSE METER UNSOLICITED RESULTS Routine 12/17/2023 7:32 PM EDT POCT GLUCOSE METER UNSOLICITED RESULTS Routine 12/17/2023 6:01 PM EDT BASIC METABOLIC PANEL, PLASMA Routine 12/17/2023 2:19 PM EDT POCT GLUCOSE METER UNSOLICITED RESULTS Routine 12/17/2023 12:56 PM EDT WOUND OSTOMY EVAL AND TREAT Routine 12/17/2023 11:20 AM EDT BLOOD GAS PANEL, VENOUS Routine 12/17/2023 9:51 AM EDT FERRITIN, SERUM Routine 12/17/2023 9:51 AM EDT POCT GLUCOSE METER UNSOLICITED RESULTS Routine 12/17/2023 8:46 AM EDT US ABDOMEN DOPPLER LIMITED Routine 12/17/2023 8:31 AM EDT OXYGEN THERAPY Routine 12/17/2023 8:00 AM EDT PROTEIN, URINE, RANDOM WITH CREATININE Routine 12/17/2023 6:18 AM EDT LACTATE, VENOUS Routine 12/17/2023 5:10 AM EDT APTT Routine 12/17/2023 4:00 AM EDT PROTHROMBIN TIME(PT) / INR Routine 12/17/2023 4:00 AM EDT SARS COV-2/COVID-19 BY PCR Routine 12/17/2023 1:47 AM EDT MULTI DRUG RESISTANCE TEST Routine 12/17/2023 1:47 AM EDT N-TERMINAL PROBNP, PLASMA STAT 12/17/2023 1:47 AM EDT IRON & TOTAL IRON BINDING CAPACITY, PLASMA (INCLUDES TRANSFERRIN) Add-On 12/17/2023 1:47 AM EDT URINALYSIS, DIPSTICK STAT 12/17/2023 1:47 AM EDT CBC W/O DIFFERENTIAL STAT 12/17/2023 1:47 AM EDT MAGNESIUM, PLASMA STAT 12/17/2023 1:4 7 AM EDT HEMOGLOBIN A1C STAT Add-on 12/17/2023 1:47 AM EDT LIPID PROFILE, PLASMA Add-On 12/17/2023 1:47 AM EDT COMPREHENSIVE METABOLIC PANEL, PLASMA STAT 12/17/2023 1:47 AM EDT BACTERIAL ID GRAM [...] 1 VIEW STAT 12/16/2023 7:05 PM EDT TROPONIN T, HIGH SENSITIVITY, 0 HOUR, PLASMA, REFLEX TO 2 HOUR STAT 12/16/2023 6:42 PM EDT N-TERMINAL PROBNP, PLASMA STAT 12/16/2023 6:42 PM EDT CBC WITH AUTO DIFFERENTIAL STAT 12/16/2023 6:42 PM EDT TSH STAT 12/16/2023 6:42 PM EDT FREE T4, PLASMA STAT 12/16/2023 6:42 PM EDT COMPREHENSIVE METABOLIC PANEL, PLASMA STAT 12/16/2023 6:42 PM EDT POCT GLUCOSE METER UNSOLICITED RESULTS Routine 12/16/2023 6:00 PM EDT [facility] ED POCUS PROCDOC Routine 12/16/2023 5:49 PM EDT documented in this encounter Results * (ABNORMAL) POCT glucose meter (12/25/2023 9:10 AM EDT) POCT Glucose 135(H) 74 - 99 mg/dL 12/25/2023 9:12 AM EDT [facility] Comment:Accuracy of a glucos e result obtained from a capillary whole blood specimen relies upon adequate, non-compromised capillary blood flow. If the capillary glucose result is not consistent with the patient's clinical signs and symptoms, glucose testing should be repeated with either an arterial or venous sample on the glucometer or sent to the main labortory for testing. Comment 12/25/2023 9:12 AM EDT [facility] [employer] Infrastructure Engineer ID Dottie Uriarte 12/25/2023 9:12 AM EDT [facility] Device ID [id number] 12/25/2023 9:12 AM EDT [facility] Specimen Type POC Capillary 12/25/2023 9:12 AM EDT [facility] Blood Capillary blood specimen / Unknown 12/25/2023 9:10 AM EDT 12/25/2023 9:12 AM EDT us Jonny Broussard MD LAB POINT OF CARE TE ST DOCKED DEVICE UNSOLICITED RESULTS Final Result [facility] [address] [place] [id number] * (ABNORMAL) CBC and differential (12/25/2023 3:08 AM EDT) WBC Count 5.32 3.70 - 10.30 10*3/uL LAB HEMATOLOGY METHOD 12/25/2023 4:51 AM EDT [facility] RBC Count 3.88(L) 4.60 - 6.10 10*6/uL LAB HEMATOLOGY METHOD 12/25/2023 4:51 AM EDT [facility] HGB 9.5(L) 13.7 - 17.5 g/dL LAB HEMATOLOGY METHOD 12/25/2023 4:51 AM EDT [facility] HCT 31.6(L) 40.0 - 51.0 % LAB HEMATOLOGY METHOD 12/25/2023 4:51 AM EDT [facility] Platelet Count 211 155 - 369 10*3/uL LAB HEMATOLOGY METHOD 12/25/2023 4:51 AM EDT [facility] MCV 81 79 - 98 fL LAB HEMATOLOGY METHOD 12/25/2023 4:51 AM EDT [facility] MCH 24.5(L) 26.0 - 32.0 pg LAB HEMATOLOGY METHOD 12/25/2023 4:51 AM EDT [facility] MCHC 30.1(L) 30.7 - 35.5 g/dL LAB HEMATOLOGY METHOD 12/25/2023 4:51 AM EDT [facility] RDW 18.6(H) 11.5 - 14.5 % LAB HEMATOLOGY METHOD 12/25/2023 4:51 AM EDT [facility] MPV 11.1 8.8 - 12.5 fL LAB HEMATOLOGY METHOD 12/25/2023 4:51 AM EDT [facility] nRBC 0.0 <=0.0 per 100 WBCs LAB HEMATOLOGY METHOD 12/25/2023 4:51 AM EDT [facility] Differential Type Automated LAB HEMATOLOGY METHOD 12/25/2023 4:51 AM EDT [facility] Neutrophils % 63.0 % LAB HEMATOLOGY METHOD 12/25/2023 4:51 AM EDT [facility] Lymphocytes % 26.0 % LAB HEMATOLOGY METHOD 12/25/2023 4:51 AM EDT [facility] Monocytes % 8.0 % LAB HEMATOLOGY METHOD 12/25/2023 4:51 AM EDT [facility] Eosinophils % 1.0 % LAB HEMATOLOGY METHOD 12/25/2023 4:51 AM EDT [facility] Basophils % 1.0 % LAB HEMATOLOGY METHOD 12/25/2023 4:51 AM EDT [facility] Immature Granulocytes % 1.0 % LAB HEMATOLOGY METHOD 12/25/2023 4:51 AM EDT [facility] Neutrophils Absolute 3.41 1.60 - 6.10 10*3/uL LAB HEMATOLOGY METHOD 12/25/2023 4:51 AM EDT [facility] Lymphocytes Absolute 1.36 1.20 - 3.90 10*3/uL LAB HEMATOLOGY METHOD 12/25/2023 4:51 AM EDT [facility] Monocytes Absolute 0.41 0.30 - 0.90 10*3/uL LAB HEMATOLOGY METHOD 12/25/2023 4:51 AM EDT [facility] Eosinophils Absolute 0.07 0.00 - 0.50 10*3/uL LAB HEMATOLOGY METHOD 12/25/2023 4:51 AM EDT [facility] Basophils Absolute 0.03 0.00 - 0.10 10*3/uL LAB HEMATOLOGY METHOD 12/25/2023 4:51 AM EDT [facility] Immature Granulocytes Absolute 0.04 0.00 - 0.06 10*3/uL LAB HEMATOLOGY METHOD 12/25/2023 4:51 AM EDT [facility] Blood Venous blood specimen / Unknown Venipuncture / Unknown 12/25/2023 3:08 AM EDT 12/25/2023 3:43 AM EDT Narrative [facility] - 12/25/2023 4:51 AM EDT Therapeutic decision making should be based on absolute values, rather than percentages. us Tian Mattson MD LAB BLOOD ORDERABLES Final Resu lt [facility] [address] [place] [address] * (ABNORMAL) Phosphorus (12/25/2023 3:08 AM EDT) Phosphorus, Plasma 4.6(H) 2.5 - 4.5 mg/dL 12/25/2023 4:13 AM EDT [facility] Blood Venous blood specimen / Unknown Venipuncture / Unknown 12/25/2023 3:08 AM EDT 12/25/2023 3:43 AM EDT us Tian Mattson MD LAB BLOOD ORDERABLES Final Resu lt Performing Organization Address City/[facility]/ZIP Co de Phone Number [facility] [address] [place] [address] * Magnesium (12/25/2023 3:08 AM EDT) Magnesium, Plasma 2.1 1.9 - 2.4 mg/dL 12/25/2023 4:13 AM EDT [facility] Blood Venous blood specimen / Unknown Venipuncture / Unknown 12/25/2023 3:08 AM EDT 12/25/2023 3:43 AM EDT us Tian Mattson MD LAB BLOOD ORDERABLES Final Resu lt Performing Organization Address [facility]/ZIP Co de Phone Number [facility] [address] [place] [address] * (ABNORMAL) Basic metabolic panel (12/25/2023 3:08 AM EDT) Glucose, Plasma 173(H) 74 - 99 mg/dL 12/25/2023 4:13 AM EDT [facility] BUN, Plasma 74(H) 7 - 21 mg/dL 12/25/2023 4:13 AM EDT [facility] Creatinine, Plasma 3.13(H) 0.70 - 1.20 mg/dL 12/25/2023 4:13 AM EDT [facility] BUN/Creatinine Ratio 24 12/25/2023 4:13 AM EDT [facility] Sodium, Plasma 141 136 - 145 mmol/L 12/25/2023 4:13 AM EDT [facility] Potassium, Plasma 3.9 3.6 - 4.9 mmol/L 12/25/2023 4:13 AM EDT [facility] Chloride, Plasma 98 97 - 107 mmol/L 12/25/2023 4:13 AM EDT [facility] CO2, Plasma 31(H) 22 - 29 mmol/L 12/25/2023 4:13 AM EDT [facility] Anion Gap 12 6 - 16 mmol/L 12/25/2023 4:13 AM EDT [facility] Total Calcium, Plasma 8.8(L) 8.9 - 10.2 mg/dL 12/25/2023 4:13 AM EDT [facility] eGFRcr 22.5 mL/min/1.7 3m*2 12/25/2023 4:13 AM EDT [facility] Comment:Reported eGFRcr in m L/min/1.73m2 is based the CKD-EPI 2020 equation that does not use a race coefficient. Blood Venous blood specimen / Unknown Venipuncture / Unknown 12/25/2023 3:08 AM EDT 12/25/2023 3:43 AM EDT us Tian Mattson MD LAB BLOOD ORDERABLES Final Resu lt Performing Organization Address City/[facility] Co de Phone Number [facility] [address] [place] [address] * (ABNORMAL) POCT glucose meter (12/24/2023 7:22 PM EDT) POCT Glucose 142(H) 74 - 99 mg/dL 12/24/2023 7:23 PM EDT [facility] Comment:Accuracy of a glucos e result obtained from a capillary whole blood specimen relies upon adequate, non-compromised capillary blood flow. If the capillary glucose result is not consistent with the patient's clinical signs and symptoms, glucose testing should be repeated with either an arterial or venous sample on the glucometer or sent to the main labortory for testing. Comment 12/24/2023 7:23 PM EDT [facility] Energy Infrastructure Engineer ID Michele Carmona II 12/24/2023 7:23 PM EDT [facility] Device ID [id number] 12/24/2023 7:23 PM EDT [facility] Specimen Type POC Capillary 12/24/2023 7:23 PM EDT [facility] Blood Capillary blood specimen / Unknown 12/24/2023 7:22 PM EDT 12/24/2023 7:23 PM EDT us Jonny Broussard MD LAB POINT OF CARE TE ST DOCKED DEVICE UNSOLICITED RESULTS Final Result Performing Organization Address City/[facility]/ZIP Co de Phone Number [facility] [address] [place] [address] * (ABNORMAL) POCT glucose meter (12/24/2023 5:50 PM EDT) [facility] POCT Glucose 105(H) 74 - 99 mg/dL 12/24/2023 5:52 PM EDT [facility] Comment:Accuracy of [...] to the main labortory for testing. Comment 12/24/2023 5:52 PM EDT [facility] Energy Infrastructure Engineer ID Miranda Bear 12/24/2023 5:52 PM EDT [facility] Device ID [id number] 12/24/2023 5:52 PM EDT [facility] Specimen Type POC Capillary 12/24/2023 5:52 PM EDT [facility] Blood Capillary blood specimen / Unknown 12/24/2023 5:50 PM EDT 12/24/2023 5:52 PM EDT us Jonny Broussard MD LAB POINT OF CARE TE ST DOCKED DEVICE UNSOLICITED RESULTS Final Result [facility] [address] [place] [address] * (ABNORMAL) POCT glucose meter (12/24/2023 12:35 PM EDT) [facility] POCT Glucose 153(H) 74 - 99 mg/dL 12/24/2023 12:37 PM EDT [facility] Comment:Accuracy of [...] to the main labortory for testing. Comment 12/24/2023 12:37 PM EDT [facility] Energy Infrastructure Engineer ID Dottie Uriarte 12/24/2023 12:37 PM EDT [facility] Device ID [id number] 12/24/2023 12:37 PM EDT [facility] Specimen Type POC Capillary 12/24/2023 12:37 PM EDT [facility] Blood Capillary blood specimen / Unknown 12/24/2023 12:35 PM EDT 12/24/2023 12:37 PM EDT Jonny Broussard MD LAB POINT OF CARE TE ST DOCKED DEVICE UNSOLICITED RESULTS Final Result Performing Organization Address City/[facility]/ZIP Co de Phone Number [facility] [address] [place] [address] * (ABNORMAL) POCT glucose meter (12/24/2023 8:45 AM EDT) POCT Glucose 102(H) 74 - 99 mg/dL 12/24/2023 8:46 AM EDT [facility] Comment:Accuracy of a glucos e result obtained from a capillary whole blood specimen relies upon adequate, non-compromised capillary blood flow. If the capillary glucose result is not consistent with the patient's clinical signs and symptoms, glucose testing should be repeated with either an arterial or venous sample on the glucometer or sent to the main labortory for testing. Comment 12/24/2023 8:46 AM EDT [facility] Energy Infrastructure Engineer ID Dottie Uriarte 12/24/2023 8:46 AM EDT [facility] Device ID [id number] 12/24/2023 8:46 AM EDT [facility] Specimen Type POC Capillary 12/24/2023 8:46 AM EDT [facility] Blood Capillary blood specimen / Unknown 12/24/2023 8:45 AM EDT 12/24/2023 8:46 AM EDT us Jonny Broussard MD LAB POINT OF CARE TE ST DOCKED DEVICE UNSOLICITED RESULTS Final Result [facility] [address] [place] [address] * Morphology (12/24/2023 4:31 AM EDT) Elliptocytes/O valocytes Present LAB HEMATOLOGY METHOD 12/24/2023 6:21 AM EDT [facility] RBC Morphology Slide Reviewed LAB HEMATOLOGY METHOD 12/24/2023 6:21 AM EDT [facility] Platelet Estimate Platelet smear estimate consistent with automated count LAB HEMATOLOGY METHOD 12/24/2023 6:21 AM EDT [facility] Blood Venous blood specimen / Unknown Venipuncture / Unknown 12/24/2023 4:31 AM EDT 12/24/2023 4:38 AM EDT us Tian Mattson MD LAB BLOOD ORDERABLES Final Resu lt [facility] [address] [place] [address] * (ABNORMAL) Manual Differential (12/24/2023 4:31 AM EDT) Blasts % 0 % LAB HEMATOLOGY METHOD 12/24/2023 6:21 AM EDT [facility] Promyelocytes % 0 % LAB HEMATOLOGY METHOD 12/24/2023 6:21 AM EDT [facility] Myelocytes % 0 % LAB HEMATOLOGY METHOD 12/24/2023 6:21 AM EDT [facility] Metamyelocytes % 0 % LAB HEMATOLOGY METHOD 12/24/2023 6:21 AM EDT [facility] Neutrophils % 72 % LAB HEMATOLOGY METHOD 12/24/2023 6:21 AM EDT [facility] Lymphocytes % 18 % LAB HEMATOLOGY METHOD 12/24/2023 6:21 AM EDT [facility] Reactive Lymphocytes % 3 % LAB HEMATOLOGY METHOD 12/24/2023 6:21 AM EDT [facility] Monocytes % 3 % LAB HEMATOLOGY METHOD 12/24/2023 6:21 AM EDT [facility] Eosinophils % 1 % LAB HEMATOLOGY METHOD 12/24/2023 6:21 AM EDT [facility] Basophils % 3 % LAB HEMATOLOGY METHOD 12/24/2023 6:21 AM EDT [facility] Plasma Cells % LAB HEMATOLOGY METHOD 12/24/2023 6:21 AM EDT [facility] Lymphoma Cells % LAB HEMATOLOGY METHOD 12/24/2023 6:21 AM EDT [facility] Hairy Cell % LAB HEMATOLOGY METHOD 12/24/2023 6:21 AM EDT [facility] Other Cells % LAB HEMATOLOGY METHOD 12/24/2023 6:21 AM EDT [facility] Blasts Absolute 0.00 10*3/UL LAB HEMATOLOGY METHOD 12/24/2023 6:21 AM EDT [facility] Promyelocytes Absolute 0.00 10*3/uL LAB HEMATOLOGY METHOD 12/24/2023 6:21 AM EDT [facility] Myelocytes Absolute 0.00 10*3/uL LAB HEMATOLOGY METHOD 12/24/2023 6:21 AM EDT [facility] Metamyelocytes Absolute 0.00 10*3/uL LAB HEMATOLOGY METHOD 12/24/2023 6:21 AM EDT [facility] Neutrophils Absolute 3.78 1.60 - 6.10 10*3/uL LAB HEMATOLOGY METHOD 12/24/2023 6:21 AM EDT [facility] Lymphocytes Absolute 0.95(L) 1.20 - 3.90 10*3/uL LAB HEMATOLOGY METHOD 12/24/2023 6:21 AM EDT [facility] Reactive Lymphocytes Absolute 0.16 10*3/uL LAB HEMATOLOGY METHOD 12/24/2023 6:21 AM EDT [facility] Monocytes Absolute 0.16(L) 0.30 - 0.90 10*3/uL LAB HEMATOLOGY METHOD 12/24/2023 6:21 AM EDT [facility] Eosinophils Absolute 0.05 0.00 - 0.50 10*3/uL LAB HEMATOLOGY METHOD 12/24/2023 6:21 AM EDT [facility] Basophils Absolute 0.16(H) 0.00 - 0.10 10*3/uL LAB HEMATOLOGY METHOD 12/24/2023 6:21 AM EDT [facility] Plasma Cells Absolute LAB HEMATOLOGY METHOD 12/24/2023 6:21 AM EDT [facility] Lymphoma Cells Absolute LAB HEMATOLOGY METHOD 12/24/2023 6:21 AM EDT [facility] Hairy Cells Absolute LAB HEMATOLOGY METHOD 12/24/2023 6:21 AM EDT [facility] Other Cells Absolute LAB HEMATOLOGY METHOD 12/24/2023 6:21 AM EDT [facility] Blood Venous blood specimen / Unknown Venipuncture / Unknown 12/24/2023 4:31 AM EDT 12/24/2023 4:38 AM EDT us Tian Mattson MD LAB BLOOD ORDERABLES Final Resu lt [facility] [address] [place] [address] * (ABNORMAL) CBC and differential (12/24/2023 4:31 AM EDT) WBC Count 5.25 3.70 - 10.30 10*3/uL LAB HEMATOLOGY METHOD 12/24/2023 6:21 AM EDT [facility] RBC Count 3.54(L) 4.60 - 6.10 10*6/uL LAB HEMATOLOGY METHOD 12/24/2023 6:21 AM EDT [facility] HGB 8.8(L) 13.7 - 17.5 g/dL LAB HEMATOLOGY METHOD 12/24/2023 6:21 AM EDT [facility] HCT 28.6(L) 40.0 - 51.0 % LAB HEMATOLOGY METHOD 12/24/2023 6:21 AM EDT [facility] Platelet Count 210 155 - 369 10*3/uL LAB HEMATOLOGY METHOD 12/24/2023 6:21 AM EDT [facility] MCV 81 79 - 98 fL LAB HEMATOLOGY METHOD 12/24/2023 6:21 AM EDT [facility] MCH 24.9(L) 26.0 - 32.0 pg LAB HEMATOLOGY METHOD 12/24/2023 6:21 AM EDT [facility] MCHC 30.8 30.7 - 35.5 g/dL LAB HEMATOLOGY METHOD 12/24/2023 6:21 AM EDT [facility] RDW 18.1(H) 11.5 - 14.5 % LAB HEMATOLOGY METHOD 12/24/2023 6:21 AM EDT [facility] MPV 10.9 8.8 - 12.5 fL LAB HEMATOLOGY METHOD 12/24/2023 6:21 AM EDT [facility] nRBC 0.0 <=0.0 per 100 WBCs LAB HEMATOLOGY METHOD 12/24/2023 6:21 AM EDT [facility] Differential Type Manual LAB HEMATOLOGY METHOD 12/24/2023 6:21 AM EDT [facility] Blood Venous blood specimen / Unknown Venipuncture / Unknown 12/24/2023 4:31 AM EDT 12/24/2023 4:38 AM EDT Narrative [facility] - 12/24/2023 6:21 AM EDT Therapeutic decision making should be based on absolute values, rather than percentages. The previously reported component Neutrophils % is no longer being reported.The previously reported component Lymphocytes % is no longer being reported.The previously reported component Monocytes % is no longer being reported.The previously reported component Eosinophils % is no longer being reported.The previously reported component Basophils % is no longer being reported.The previously reported component Immature Granulocytes % is no longer being reported.The previously reported component Absolute Neutrophils is no longer being reported.The previously reported component Absolute Lymphocytes is no longer being reported.The previously reported component Absolute Monocytes is no longer being reported.The previously reported component Absolute Eosinophils is no longer being reported.The previously reported component Absolute Basophils is no longer being reported.The previously reported component Absolute Immature Granulocytes is no longer being reported. Tian Mattson MD LAB BLOOD ORDERABLES Final Resu lt Performing Organization Address City/[facility]/ZIP Co de Phone Number [facility] [address] [place] [address] * Phosphorus (12/24/2023 4:31 AM EDT) Phosphorus, Plasma 4.0 2.5 - 4.5 mg/dL 12/24/2023 5:07 AM EDT [facility] Blood Venous blood specimen / Unknown Venipuncture / Unknown 12/24/2023 4:31 AM EDT 12/24/2023 4:38 AM EDT Tian Mattson MD LAB BLOOD ORDERABLES Final Resu lt [facility] [address] [place] [address] * Magnesium (12/24/2023 4:31 AM EDT) Magnesium, Plasma 2.0 1.9 - 2.4 mg/dL 12/24/2023 5:07 AM EDT [facility] Blood Venous blood specimen / Unknown Venipuncture / Unknown 12/24/2023 4:31 AM EDT 12/24/2023 4:38 AM EDT us Tian Mattson MD LAB BLOOD ORDERABLES Final Resu lt [facility] [address] [place] [address] * (ABNORMAL) Basic metabolic panel (12/24/2023 4:31 AM EDT) Glucose, Plasma 192(H) 74 - 99 mg/dL 12/24/2023 5:07 AM EDT [facility] BUN, Plasma 73(H) 7 - 21 mg/dL 12/24/2023 5:07 AM EDT [facility] Creatinine, Plasma 3.26(H) 0.70 - 1.20 mg/dL 12/24/2023 5:07 AM EDT [facility] BUN/Creatinine Ratio 22 12/24/2023 5:07 AM EDT [facility] Sodium, Plasma 141 136 - 145 mmol/L 12/24/2023 5:07 AM EDT [facility] Potassium, Plasma 3.7 3.6 - 4.9 mmol/L 12/24/2023 5:07 AM EDT [facility] Chloride, Plasma 100 97 - 107 mmol/L 12/24/2023 5:07 AM EDT [facility] CO2, Plasma 29 22 - 29 mmol/L 12/24/2023 5:07 AM EDT [facility] Anion Gap 12 6 - 16 mmol/L 12/24/2023 5:07 AM EDT [facility] Total Calcium, Plasma 8.1(L) 8.9 - 10.2 mg/dL 12/24/2023 5:07 AM EDT [facility] eGFRcr 21.4 mL/min/1.7 3m*2 12/24/2023 5:07 AM EDT [facility] Comment:Reported eGFRcr in m L/min/1.73m2 is based the CKD-EPI 2020 equation that does not use a race coefficient. Blood Venous blood specimen / Unknown Venipuncture / Unknown 12/24/2023 4:31 AM EDT 12/24/2023 4:38 AM EDT us Tian Mattson MD LAB BLOOD ORDERABLES Final Resu lt [facility] [address] [place] [address] * (ABNORMAL) POCT glucose meter (12/23/2023 7:28 PM EDT) POCT Glucose 175(H) 74 - 99 mg/dL 12/23/2023 7:29 PM EDT [facility] Comment:Accuracy of [...] to the main labortory for testing. Comment 12/23/2023 7:29 PM EDT [facility] Energy Infrastructure Engineer ID Michele Carmona II 12/23/2023 7:29 PM EDT [facility] Device ID [id number] 12/23/2023 7:29 PM EDT [facility] Specimen Type POC Capillary 12/23/2023 7:29 PM EDT [facility] Blood Capillary blood specimen / Unknown 12/23/2023 7:28 PM EDT 12/23/2023 7:29 PM EDT us Jonny Broussard MD LAB POINT OF CARE TE ST DOCKED DEVICE UNSOLICITED RESULTS Final Result Performing Organization Address City/[facility]/ZIP Co de Phone Number [facility] [address] [place] [address] * (ABNORMAL) POCT glucose meter (12/23/2023 5:45 PM EDT) Pathologist [facility] POCT Glucose 170(H) 74 - 99 mg/dL 12/23/2023 5:47 PM EDT [facility] Comment:Accuracy of [...] to the main labortory for testing. Comment 12/23/2023 5:47 PM EDT [facility] Energy Infrastructure Engineer ID Dottie Uriarte 12/23/2023 5:47 PM EDT [facility] Device ID [id number] 12/23/2023 5:47 PM EDT [facility] Specimen Type POC Capillary 12/23/2023 5:47 PM EDT [facility] Blood Capillary blood specimen / Unknown 12/23/2023 5:45 PM EDT 12/23/2023 5:47 PM EDT us Jonny Broussard MD LAB POINT OF CARE TE ST DOCKED DEVICE UNSOLICITED RESULTS Final Result [facility] [address] [place] [address] * (ABNORMAL) POCT glucose meter (12/23/2023 12:50 PM EDT) [facility] POCT Glucose 119(H) 74 - 99 mg/dL 12/23/2023 12:52 PM EDT [facility] Comment:Accuracy of [...] to the main labortory for testing. Comment 12/23/2023 12:52 PM EDT [facility] Energy Infrastructure Engineer ID Dottie Uriarte 12/23/2023 12:52 PM EDT [facility] Device ID [id number] 12/23/2023 12:52 PM EDT [facility] Specimen Type POC Capillary 12/23/2023 12:52 PM EDT [facility] Blood Capillary blood specimen / Unknown 12/23/2023 12:50 PM EDT 12/23/2023 12:52 PM EDT us Jonny Broussard MD LAB POINT OF CARE TE ST DOCKED DEVICE UNSOLICITED RESULTS Final Result [facility] [address] [place] [address] * (ABNORMAL) POCT glucose meter (12/23/2023 8:48 AM EDT) [facility] POCT Glucose 108(H) 74 - 99 mg/dL 12/23/2023 8:49 AM EDT [facility] Comment:Accuracy of a glucos e result obtained from a capillary whole blood specimen relies upon adequate, non-compromised capillary blood flow. If the capillary glucose result is not consistent with the patient's clinical signs and symptoms, glucose testing should be repeated with either an arterial or venous sample on the glucometer or sent to the main labortory for testing. Comment 12/23/2023 8:49 AM EDT [facility] Energy Infrastructure Engineer ID Miranda Bear 12/23/2023 8:49 AM EDT [facility] Device ID [id number] 12/23/2023 8:49 AM EDT [facility] Specimen Type POC Capillary 12/23/2023 8:49 AM EDT [facility] Blood Capillary blood specimen / Unknown 12/23/2023 8:48 AM EDT 12/23/2023 8:49 AM EDT Jonny Broussard MD LAB POINT OF CARE TE ST DOCKED DEVICE UNSOLICITED RESULTS Final Result [facility] [address] [place] [address] * (ABNORMAL) CBC and differential (12/23/2023 4:10 AM EDT) [facility] WBC Count 4.81 3.70 - 10.30 10*3/uL LAB HEMATOLOGY METHOD 12/23/2023 4:23 AM EDT [facility] RBC Count 3.43(L) 4.60 - 6.10 10*6/uL LAB HEMATOLOGY METHOD 12/23/2023 4:23 AM EDT [facility] HGB 8.4(L) 13.7 - 17.5 g/dL LAB HEMATOLOGY METHOD 12/23/2023 4:23 AM EDT [facility] HCT 27.3(L) 40.0 - 51.0 % LAB HEMATOLOGY METHOD 12/23/2023 4:23 AM EDT [facility] Platelet Count 192 155 - 369 10*3/uL LAB HEMATOLOGY METHOD 12/23/2023 4:23 AM EDT [facility] MCV 80 79 - 98 fL LAB HEMATOLOGY METHOD 12/23/2023 4:23 AM EDT [facility] MCH 24.5(L) 26.0 - 32.0 pg LAB HEMATOLOGY METHOD 12/23/2023 4:23 AM EDT [facility] MCHC 30.8 30.7 - 35.5 g/dL LAB HEMATOLOGY METHOD 12/23/2023 4:23 AM EDT [facility] RDW 18.0(H) 11.5 - 14.5 % LAB HEMATOLOGY METHOD 12/23/2023 4:23 AM EDT [facility] MPV 10.2 8.8 - 12.5 fL LAB HEMATOLOGY METHOD 12/23/2023 4:23 AM EDT [facility] nRBC 0.0 <=0.0 per 100 WBCs LAB HEMATOLOGY METHOD 12/23/2023 4:23 AM EDT [facility] Differential Type Automated LAB HEMATOLOGY METHOD 12/23/2023 4:23 AM EDT [facility] Neutrophils % 69.0 % LAB HEMATOLOGY METHOD 12/23/2023 4:23 AM EDT [facility] Lymphocytes % 21.0 % LAB HEMATOLOGY METHOD 12/23/2023 4:23 AM EDT [facility] Monocytes % 8.0 % LAB HEMATOLOGY METHOD 12/23/2023 4:23 AM EDT [facility] Eosinophils % 2.0 % LAB HEMATOLOGY METHOD 12/23/2023 4:23 AM EDT [facility] Basophils % 0.0 % LAB HEMATOLOGY METHOD 12/23/2023 4:23 AM EDT [facility] Immature Granulocytes % 0.0 % LAB HEMATOLOGY METHOD 12/23/2023 4:23 AM EDT [facility] Neutrophils Absolute 3.31 1.60 - 6.10 10*3/uL LAB HEMATOLOGY METHOD 12/23/2023 4:23 AM EDT [facility] Lymphocytes Absolute 1.00(L) 1.20 - 3.90 10*3/uL LAB HEMATOLOGY METHOD 12/23/2023 4:23 AM EDT [facility] Monocytes Absolute 0.39 0.30 - 0.90 10*3/uL LAB HEMATOLOGY METHOD 12/23/2023 4:23 AM EDT [facility] Eosinophils Absolute 0.07 0.00 - 0.50 10*3/uL LAB HEMATOLOGY METHOD 12/23/2023 4:23 AM EDT [facility] Basophils Absolute 0.02 0.00 - 0.10 10*3/uL LAB HEMATOLOGY METHOD 12/23/2023 4:23 AM EDT [facility] Immature Granulocytes Absolute 0.02 0.00 - 0.06 10*3/uL LAB HEMATOLOGY METHOD 12/23/2023 4:23 AM EDT [facility] Blood Venous blood specimen / Unknown Venipuncture / Unknown 12/23/2023 4:10 AM EDT 12/23/2023 4:15 AM EDT Narrative [facility] - 12/23/2023 4:23 AM EDT Therapeutic decision making should be based on absolute values, rather than percentages. us Tian Mattson MD LAB BLOOD ORDERABLES Final Resu lt [facility] [address] [place] [address] * Phosphorus (12/23/2023 4:10 AM EDT) Phosphorus, Plasma 4.1 2.5 - 4.5 mg/dL 12/23/2023 4:45 AM EDT [facility] Blood Venous blood specimen / Unknown Venipuncture / Unknown 12/23/2023 4:10 AM EDT 12/23/2023 4:15 AM EDT us Tian Mattson MD LAB BLOOD ORDERABLES Final Resu lt [facility] [address] [place] [address] * Magnesium (12/23/2023 4:10 AM EDT) Magnesium, Plasma 2.0 1.9 - 2.4 mg/dL 12/23/2023 4:45 AM EDT [facility] Blood Venous blood specimen / Unknown Venipuncture / Unknown 12/23/2023 4:10 AM EDT 12/23/2023 4:15 AM EDT us Tian Mattson MD LAB BLOOD ORDERABLES Final Resu lt [facility] [address] [place] [address] * (ABNORMAL) Basic metabolic panel (12/23/2023 4:10 AM EDT) Glucose, Plasma 126(H) 74 - 99 mg/dL 12/23/2023 4:45 AM EDT [facility] BUN, Plasma 74(H) 7 - 21 mg/dL 12/23/2023 4:45 AM EDT [facility] Creatinine, Plasma 3.28(H) 0.70 - 1.20 mg/dL 12/23/2023 4:45 AM EDT [facility] BUN/Creatinine Ratio 23 12/23/2023 4:45 AM EDT [facility] Sodium, Plasma 139 136 - 145 mmol/L 12/23/2023 4:45 AM EDT [facility] Potassium, Plasma 4.0 3.6 - 4.9 mmol/L 12/23/2023 4:45 AM EDT [facility] Chloride, Plasma 99 97 - 107 mmol/L 12/23/2023 4:45 AM EDT [facility] CO2, Plasma 29 22 - 29 mmol/L 12/23/2023 4:45 AM EDT [facility] Anion Gap 11 6 - 16 mmol/L 12/23/2023 4:45 AM EDT [facility] Total Calcium, Plasma 8.1(L) 8.9 - 10.2 mg/dL 12/23/2023 4:45 AM EDT [facility] eGFRcr 21.2 mL/min/1.7 3m*2 12/23/2023 4:45 AM EDT [facility] Comment:Reported eGFRcr in m L/min/1.73m2 is based the CKD-EPI 2020 equation that does not use a race coefficient. Blood Venous blood specimen / Unknown Venipuncture / Unknown 12/23/2023 4:10 AM EDT 12/23/2023 4:15 AM EDT us Tian Mattson MD LAB BLOOD ORDERABLES Final Resu lt Performing Organization Address [facility] Co de Phone Number [facility] [address] [place] [address] * (ABNORMAL) N-Terminal Probnp (12/23/2023 4:10 AM EDT) Pathologist [facility] N-Terminal, PROBNP, Plasma 55,429(H) 0 - 899 pg/mL 12/23/2023 4:56 AM EDT [facility] Blood Venous blood specimen / Unknown Venipuncture / Unknown 12/23/2023 4:10 AM EDT 12/23/2023 4:15 AM EDT us Jonny Broussard MD LAB BLOOD ORDERABLES Final Resu lt Performing Organization Address [facility] Co de Phone Number [facility] [address] [place] [address] * (ABNORMAL) POCT glucose meter (12/22/2023 7:45 PM EDT) [facility] POCT Glucose 167(H) 74 - 99 mg/dL 12/22/2023 7:47 PM EDT [facility] Comment:Accuracy of [...] to the main labortory for testing. Comment 12/22/2023 7:47 PM EDT [facility] Energy Infrastructure Engineer ID Mamta Scruggs 12/22/19 7:47 PM EDT [facility] Device ID [id number] 12/22/2023 7:47 PM EDT [facility] Specimen Type POC Capillary 12/22/2023 7:47 PM EDT [facility] Blood Capillary blood specimen / Unknown 12/22/2023 7:45 PM EDT 12/22/2023 7:47 PM EDT Jonny Broussard MD LAB POINT OF CARE TE ST DOCKED DEVICE UNSOLICITED RESULTS Final Result Performing Organization Address [facility] de Phone Number [facility] [address] [place] [address] * (ABNORMAL) POCT glucose meter (12/22/2023 5:41 PM EDT) [facility] POCT Glucose 197(H) 74 - 99 mg/dL 12/22/2023 5:43 PM EDT [facility] Comment:Accuracy of [...] to the main labortory for testing. Comment 12/22/2023 5:43 PM EDT [facility] Energy Infrastructure Engineer ID Dottie Uriarte 12/22/2023 5:43 PM EDT [facility] Device ID [id number] 12/22/2023 5:43 PM EDT [facility] Specimen Type POC Capillary 12/22/2023 5:43 PM EDT [facility] Blood Capillary blood specimen / Unknown 12/22/2023 5:41 PM EDT 12/22/2023 5:43 PM EDT Jonny Broussard MD LAB POINT OF CARE TE ST DOCKED DEVICE UNSOLICITED RESULTS Final Result Performing Organization Address City/[facility] Co de Phone Number [facility] [address] [place] [address] * (ABNORMAL) POCT glucose meter (12/22/2023 12:40 PM EDT) [facility] POCT Glucose 172(H) 74 - 99 mg/dL 12/22/2023 12:42 PM EDT [facility] Comment:Accuracy of [...] to the main labortory for testing. Comment 12/22/2023 12:42 PM EDT [facility] Energy Infrastructure Engineer ID Miranda Bear 12/22/2023 12:42 PM EDT [facility] Device ID [id number] 12/22/2023 12:42 PM EDT [facility] Specimen Type POC Capillary 12/22/2023 12:42 PM EDT [facility] Blood Capillary blood specimen / Unknown 12/22/2023 12:40 PM EDT 12/22/2023 12:42 PM EDT us Jonny Broussard MD LAB POINT OF CARE TE ST DOCKED DEVICE UNSOLICITED RESULTS Final Result Performing Organization Address City/[facility] Co wy Phone Number [facility] [address] [place] [address] * (ABNORMAL) POCT glucose meter (12/22/2023 8:45 AM EDT) POCT Glucose 121(H) 74 - 99 mg/dL 12/22/2023 8:47 AM EDT [facility] Comment:Accuracy of [...] to the main labortory for testing. Comment 12/22/2023 8:47 AM EDT [facility] Energy Infrastructure Engineer ID Dottie Uriarte 12/22/2023 8:47 AM EDT [facility] Device ID [id number] 12/22/2023 8:47 AM EDT [facility] Specimen Type POC Capillary 12/22/2023 8:47 AM EDT [facility] Blood Capillary blood specimen / Unknown 12/22/2023 8:45 AM EDT 12/22/2023 8:47 AM EDT us Jonny Broussard MD LAB POINT OF CARE TE ST DOCKED DEVICE UNSOLICITED RESULTS Final Result [facility] [address] [place] [address] * (ABNORMAL) CBC and differential (12/22/2023 3:33 AM EDT) WBC Count 4.56 3.70 - 10.30 10*3/uL LAB HEMATOLOGY METHOD 12/22/2023 4:21 AM EDT [facility] RBC Count 3.48(L) 4.60 - 6.10 10*6/uL LAB HEMATOLOGY METHOD 12/22/2023 4:21 AM EDT [facility] HGB 8.5(L) 13.7 - 17.5 g/dL LAB HEMATOLOGY METHOD 12/22/2023 4:21 AM EDT [facility] HCT 27.6(L) 40.0 - 51.0 % LAB HEMATOLOGY METHOD 12/22/2023 4:21 AM EDT [facility] Platelet Count 197 155 - 369 10*3/uL LAB HEMATOLOGY METHOD 12/22/2023 4:21 AM EDT [facility] MCV 79 79 - 98 fL LAB HEMATOLOGY METHOD 12/22/2023 4:21 AM EDT [facility] MCH 24.4(L) 26.0 - 32.0 pg LAB HEMATOLOGY METHOD 12/22/2023 4:21 AM EDT [facility] MCHC 30.8 30.7 - 35.5 g/dL LAB HEMATOLOGY METHOD 12/22/2023 4:21 AM EDT [facility] RDW 18.1(H) 11.5 - 14.5 % LAB HEMATOLOGY METHOD 12/22/2023 4:21 AM EDT [facility] MPV 10.4 8.8 - 12.5 fL LAB HEMATOLOGY METHOD 12/22/2023 4:21 AM EDT [facility] nRBC 0.0 <=0.0 per 100 WBCs LAB HEMATOLOGY METHOD 12/22/2023 4:21 AM EDT [facility] Differential Type Automated LAB HEMATOLOGY METHOD 12/22/2023 4:21 AM EDT [facility] Neutrophils % 74.0 % LAB HEMATOLOGY METHOD 12/22/2023 4:21 AM EDT [facility] Lymphocytes % 16.0 % LAB HEMATOLOGY METHOD 12/22/2023 4:21 AM EDT [facility] Monocytes % 9.0 % LAB HEMATOLOGY METHOD 12/22/2023 4:21 AM EDT [facility] Eosinophils % 1.0 % LAB HEMATOLOGY METHOD 12/22/2023 4:21 AM EDT [facility] Basophils % 0.0 % LAB HEMATOLOGY METHOD 12/22/2023 4:21 AM EDT [facility] Immature Granulocytes % 0.0 % LAB HEMATOLOGY METHOD 12/22/2023 4:21 AM EDT [facility] Neutrophils Absolute 3.29 1.60 - 6.10 10*3/uL LAB HEMATOLOGY METHOD 12/22/2023 4:21 AM EDT [facility] Lymphocytes Absolute 0.75(L) 1.20 - 3.90 10*3/uL LAB HEMATOLOGY METHOD 12/22/2023 4:21 AM EDT [facility] Monocytes Absolute 0.43 0.30 - 0.90 10*3/uL LAB HEMATOLOGY METHOD 12/22/2023 4:21 AM EDT [facility] Eosinophils Absolute 0.05 0.00 - 0.50 10*3/uL LAB HEMATOLOGY METHOD 12/22/2023 4:21 AM EDT [facility] Basophils Absolute 0.02 0.00 - 0.10 10*3/uL LAB HEMATOLOGY METHOD 12/22/2023 4:21 AM EDT [facility] Immature Granulocytes Absolute 0.02 0.00 - 0.06 10*3/uL LAB HEMATOLOGY METHOD 12/22/2023 4:21 AM EDT [facility] Blood Venous blood specimen / Unknown Venipuncture / Unknown 12/22/2023 3:33 AM EDT 12/22/2023 4:10 AM EDT Narrative [facility] - 12/22/2023 4:21 AM EDT Therapeutic decision making should be based on absolute values, rather than percentages. us Tian Mattson MD LAB BLOOD ORDERABLES Final Resu lt [facility] [address] [place] [address] * Phosphorus (12/22/2023 3:33 AM EDT) Phosphorus, Plasma 4.3 2.5 - 4.5 mg/dL 12/22/2023 5:01 AM EDT [facility] Blood Venous blood specimen / Unknown Venipuncture / Unknown 12/22/2023 3:33 AM EDT 12/22/2023 4:10 AM EDT us Tian Mattson MD LAB BLOOD ORDERABLES Final Resu lt Performing Organization Address City/[facility]/ZIP Co de Phone Number [facility] [address] [place] [address] * Magnesium (12/22/2023 3:33 AM EDT) Magnesium, Plasma 2.0 1.9 - 2.4 mg/dL 12/22/2023 5:01 AM EDT [facility] Blood Venous blood specimen / Unknown Venipuncture / Unknown 12/22/2023 3:33 AM EDT 12/22/2023 4:10 AM EDT us Tian Mattson MD LAB BLOOD ORDERABLES Final Resu lt [facility] [address] [place] [address] * (ABNORMAL) Basic metabolic panel (12/22/2023 3:33 AM EDT) Glucose, Plasma 154(H) 74 - 99 mg/dL 12/22/2023 5:01 AM EDT [facility] BUN, Plasma 74(H) 7 - 21 mg/dL 12/22/2023 5:01 AM EDT [facility] Creatinine, Plasma 3.20(H) 0.70 - 1.20 mg/dL 12/22/2023 5:01 AM EDT [facility] BUN/Creatinine Ratio 23 12/22/2023 5:01 AM EDT [facility] Sodium, Plasma 139 136 - 145 mmol/L 12/22/2023 5:01 AM EDT [facility] Potassium, Plasma 3.5(L) 3.6 - 4.9 mmol/L 12/22/2023 5:01 AM EDT [facility] Chloride, Plasma 97 97 - 107 mmol/L 12/22/2023 5:01 AM EDT [facility] CO2, Plasma 31(H) 22 - 29 mmol/L 12/22/2023 5:01 AM EDT [facility] Anion Gap 11 6 - 16 mmol/L 12/22/2023 5:01 AM EDT [facility] Total Calcium, Plasma 8.7(L) 8.9 - 10.2 mg/dL 12/22/2023 5:01 AM EDT [facility] eGFRcr 21.9 mL/min/1.7 3m*2 12/22/2023 5:01 AM EDT [facility] Comment:Reported eGFRcr in m L/min/1.73m2 is based the CKD-EPI 2020 equation that does not use a race coefficient. Blood Venous blood specimen / Unknown Venipuncture / Unknown 12/22/2023 3:33 AM EDT 12/22/2023 4:10 AM EDT us Tian Mattson MD LAB BLOOD ORDERABLES Final Resu lt [facility] [address] [place] [address] * (ABNORMAL) POCT glucose meter (12/21/2023 8:00 PM EDT) POCT Glucose 157(H) 74 - 99 mg/dL 12/21/2023 8:02 PM EDT [facility] Comment:Accuracy of a glucos e result obtained from a capillary whole blood specimen relies upon adequate, non-compromised capillary blood flow. If the capillary glucose result is not consistent with the patient's clinical signs and symptoms, glucose testing should be repeated with either an arterial or venous sample on the glucometer or sent to the main labortory for testing. Comment 12/21/2023 8:02 PM EDT [facility] Energy Infrastructure Engineer ID Mamta Scruggs 12/21/19 8:02 PM EDT [facility] Device ID [id number] 12/21/2023 8:02 PM EDT [facility] Specimen Type POC Capillary 12/21/2023 8:02 PM EDT [facility] Blood Capillary blood specimen / Unknown 12/21/2023 8:00 PM EDT 12/21/2023 8:02 PM EDT Jonny Broussard MD LAB POINT OF CARE TE ST DOCKED DEVICE UNSOLICITED RESULTS Final Result Performing Organization Address City/[facility]/ZIP Co de Phone Number [facility] [address] [place] [address] * (ABNORMAL) POCT glucose meter (12/21/2023 5:26 PM EDT) POCT Glucose 147(H) 74 - 99 mg/dL 12/21/2023 5:28 PM EDT [facility] Comment:Accuracy of [...] to the main labortory for testing. Comment 12/21/2023 5:28 PM EDT [facility] Energy Infrastructure Engineer ID Gurinder García 5:28 PM EDT [facility] Device ID [id number] 12/21/2023 5:28 PM EDT [facility] Specimen Type POC Capillary 12/21/2023 5:28 PM EDT [facility] Blood Capillary blood specimen / Unknown 12/21/2023 5:26 PM EDT 12/21/2023 5:28 PM EDT Jonny Broussard MD LAB POINT OF CARE TE ST DOCKED DEVICE UNSOLICITED RESULTS Final Result [facility] [address] [place] [address] * (ABNORMAL) POCT glucose meter (12/21/2023 12:10 PM EDT) POCT Glucose 178(H) 74 - 99 mg/dL 12/21/2023 12:12 PM EDT [facility] Comment:Accuracy of [...] to the main labortory for testing. Comment 12/21/2023 12:12 PM EDT [facility] Energy Infrastructure Engineer ID Gurinder García Landry 12:12 PM EDT [facility] Device ID [id number] 12/21/2023 12:12 PM EDT [facility] Specimen Type POC Capillary 12/21/2023 12:12 PM EDT [facility] Blood Capillary blood specimen / Unknown 12/21/2023 12:10 PM EDT 12/21/2023 12:12 PM EDT us Jonny Broussard MD LAB POINT OF CARE TE ST DOCKED DEVICE UNSOLICITED RESULTS Final Result Performing Organization Address City/State/[facility] Co de Phone Number [facility] [address] [place] [address] * (ABNORMAL) POCT glucose meter (12/21/2023 8:11 AM EDT) [facility] POCT Glucose 155(H) 74 - 99 mg/dL 12/21/2023 8:13 AM EDT [facility] Comment:Accuracy of a glucos e result obtained from a capillary whole blood specimen relies upon adequate, non-compromised capillary blood flow. If the capillary glucose result is not consistent with the patient's clinical signs and symptoms, glucose testing should be repeated with either an arterial or venous sample on the glucometer or sent to the main labortory for testing. Comment 12/21/2023 8:13 AM EDT [facility] Energy Infrastructure Engineer ID Gurinder García Landry 8:13 AM EDT [facility] Device ID [id number] 12/21/2023 8:13 AM EDT [facility] Specimen Type POC Capillary 12/21/2023 8:13 AM EDT [facility] Blood Capillary blood specimen / Unknown 12/21/2023 8:11 AM EDT 12/21/2023 8:13 AM EDT us Jonny Broussard MD LAB POINT OF CARE TE ST DOCKED DEVICE UNSOLICITED RESULTS Final Result [facility] [address] [place] [address] * (ABNORMAL) CBC and differential (12/21/2023 3:46 AM EDT) WBC Count 4.18 3.70 - 10.30 10*3/uL LAB HEMATOLOGY METHOD 12/21/2023 3:57 AM EDT [facility] RBC Count 3.62(L) 4.60 - 6.10 10*6/uL LAB HEMATOLOGY METHOD 12/21/2023 3:57 AM EDT [facility] HGB 8.8(L) 13.7 - 17.5 g/dL LAB HEMATOLOGY METHOD 12/21/2023 3:57 AM EDT [facility] HCT 29.2(L) 40.0 - 51.0 % LAB HEMATOLOGY METHOD 12/21/2023 3:57 AM EDT [facility] Platelet Count 215 155 - 369 10*3/uL LAB HEMATOLOGY METHOD 12/21/2023 3:57 AM EDT [facility] MCV 81 79 - 98 fL LAB HEMATOLOGY METHOD 12/21/2023 3:57 AM EDT [facility] MCH 24.3(L) 26.0 - 32.0 pg LAB HEMATOLOGY METHOD 12/21/2023 3:57 AM EDT [facility] MCHC 30.1(L) 30.7 - 35.5 g/dL LAB HEMATOLOGY METHOD 12/21/2023 3:57 AM EDT [facility] RDW 17.9(H) 11.5 - 14.5 % LAB HEMATOLOGY METHOD 12/21/2023 3:57 AM EDT [facility] MPV 10.6 8.8 - 12.5 fL LAB HEMATOLOGY METHOD 12/21/2023 3:57 AM EDT [facility] nRBC 0.0 <=0.0 per 100 WBCs LAB HEMATOLOGY METHOD 12/21/2023 3:57 AM EDT [facility] Differential Type Automated LAB HEMATOLOGY METHOD 12/21/2023 3:57 AM EDT [facility] Neutrophils % 73.0 % LAB HEMATOLOGY METHOD 12/21/2023 3:57 AM EDT [facility] Lymphocytes % 15.0 % LAB HEMATOLOGY METHOD 12/21/2023 3:57 AM EDT [facility] Monocytes % 10.0 % LAB HEMATOLOGY METHOD 12/21/2023 3:57 AM EDT [facility] Eosinophils % 1.0 % LAB HEMATOLOGY METHOD 12/21/2023 3:57 AM EDT [facility] Basophils % 0.0 % LAB HEMATOLOGY METHOD 12/21/2023 3:57 AM EDT [facility] Immature Granulocytes % 1.0 % LAB HEMATOLOGY METHOD 12/21/2023 3:57 AM EDT [facility] Neutrophils Absolute 3.00 1.60 - 6.10 10*3/uL LAB HEMATOLOGY METHOD 12/21/2023 3:57 AM EDT [facility] Lymphocytes Absolute 0.64(L) 1.20 - 3.90 10*3/uL LAB HEMATOLOGY METHOD 12/21/2023 3:57 AM EDT [facility] Monocytes Absolute 0.43 0.30 - 0.90 10*3/uL LAB HEMATOLOGY METHOD 12/21/2023 3:57 AM EDT [facility] Eosinophils Absolute 0.05 0.00 - 0.50 10*3/uL LAB HEMATOLOGY METHOD 12/21/2023 3:57 AM EDT [facility] Basophils Absolute 0.01 0.00 - 0.10 10*3/uL LAB HEMATOLOGY METHOD 12/21/2023 3:57 AM EDT [facility] Immature Granulocytes Absolute 0.05 0.00 - 0.06 10*3/uL LAB HEMATOLOGY METHOD 12/21/2023 3:57 AM EDT [facility] Blood Venous blood specimen / Unknown Venipuncture / Unknown 12/21/2023 3:46 AM EDT 12/21/2023 3:49 AM EDT Narrative [facility] - 12/21/2023 3:57 AM EDT Therapeutic decision making should be based on absolute values, rather than percentages. us Tian Mattson MD LAB BLOOD ORDERABLES Final Resu lt [facility] [address] [place] [address] * Phosphorus (12/21/2023 3:46 AM EDT) Phosphorus, Plasma 4.1 2.5 - 4.5 mg/dL 12/21/2023 4:21 AM EDT [facility] Blood Venous blood specimen / Unknown Venipuncture / Unknown 12/21/2023 3:46 AM EDT 12/21/2023 3:49 AM EDT Tian Mattson MD LAB BLOOD ORDERABLES Final Resu lt Performing Organization Address [facility] Co de Phone Number [facility] [address] [place] [address] * Magnesium (12/21/2023 3:46 AM EDT) Magnesium, Plasma 2.0 1.9 - 2.4 mg/dL 12/21/2023 4:21 AM EDT [facility] Blood Venous blood specimen / Unknown Venipuncture / Unknown 12/21/2023 3:46 AM EDT 12/21/2023 3:49 AM EDT us Tian Mattson MD LAB BLOOD ORDERABLES Final Resu lt Performing Organization Address City/[facility] Co de Phone Number [facility] [address] [place] [address] * (ABNORMAL) Basic metabolic panel (12/21/2023 3:46 AM EDT) Glucose, Plasma 147(H) 74 - 99 mg/dL 12/21/2023 4:21 AM EDT [facility] BUN, Plasma 73(H) 7 - 21 mg/dL 12/21/2023 4:21 AM EDT [facility] Creatinine, Plasma 3.14(H) 0.70 - 1.20 mg/dL 12/21/2023 4:21 AM EDT [facility] BUN/Creatinine Ratio 23 12/21/2023 4:21 AM EDT [facility] Sodium, Plasma 140 136 - 145 mmol/L 12/21/2023 4:21 AM EDT [facility] Potassium, Plasma 3.9 3.6 - 4.9 mmol/L 12/21/2023 4:21 AM EDT [facility] Chloride, Plasma 99 97 - 107 mmol/L 12/21/2023 4:21 AM EDT [facility] CO2, Plasma 33(H) 22 - 29 mmol/L 12/21/2023 4:21 AM EDT [facility] Anion Gap 8 6 - 16 mmol/L 12/21/2023 4:21 AM EDT [facility] Total Calcium, Plasma 8.6(L) 8.9 - 10.2 mg/dL 12/21/2023 4:21 AM EDT [facility] eGFRcr 22.4 mL/min/1.7 3m*2 12/21/2023 4:21 AM EDT [facility] Comment:Reported eGFRcr in m L/min/1.73m2 is based the CKD-EPI 2020 equation that does not use a race coefficient. Blood Venous blood specimen / Unknown Venipuncture / Unknown 12/21/2023 3:46 AM EDT 12/21/2023 3:49 AM EDT us Tian Mattson MD LAB BLOOD ORDERABLES Final Resu lt [facility] [address] [place] [address] * (ABNORMAL) POCT glucose meter (12/20/2023 8:09 PM EDT) POCT Glucose 233(H) 74 - 99 mg/dL 12/20/2023 8:12 PM EDT [facility] Comment:Accuracy of a glucos e result obtained from a capillary whole blood specimen relies upon adequate, non-compromised capillary blood flow. If the capillary glucose result is not consistent with the patient's clinical signs and symptoms, glucose testing should be repeated with either an arterial or venous sample on the glucometer or sent to the main labortory for testing. Comment 12/20/2023 8:12 PM EDT [facility] Energy Infrastructure Engineer ID Mamta Scruggs 12/20/19 8:12 PM EDT [facility] Device ID [id number] 12/20/2023 8:12 PM EDT [facility] Specimen Type POC Capillary 12/20/2023 8:12 PM EDT [facility] Blood Capillary blood specimen / Unknown 12/20/2023 8:09 PM EDT 12/20/2023 8:12 PM EDT Jonny Broussard MD LAB POINT OF CARE TE ST DOCKED DEVICE UNSOLICITED RESULTS Final Result Performing Organization Address City/[facility]/ZIP Co de Phone Number [facility] [address] [place] [address] * (ABNORMAL) POCT glucose meter (12/20/2023 5:55 PM EDT) POCT Glucose 202(H) 74 - 99 mg/dL 12/20/2023 5:56 PM EDT [facility] Comment:Accuracy of [...] to the main labortory for testing. Comment 12/20/2023 5:56 PM EDT [facility] Energy Infrastructure Engineer ID Gurinder García 5:56 PM EDT [facility] Device ID [id number] 12/20/2023 5:56 PM EDT [facility] Specimen Type POC Capillary 12/20/2023 5:56 PM EDT [facility] Blood Capillary blood specimen / Unknown 12/20/2023 5:55 PM EDT 12/20/2023 5:56 PM EDT Jonny Broussard MD LAB POINT OF CARE TE ST DOCKED DEVICE UNSOLICITED RESULTS Final Result [facility] [address] [place] [address] * (ABNORMAL) POCT glucose meter (12/20/2023 12:13 PM EDT) POCT Glucose 166(H) 74 - 99 mg/dL 12/20/2023 12:15 PM EDT [facility] Comment:Accuracy of [...] to the main labortory for testing. Comment 12/20/2023 12:15 PM EDT [facility] Energy Infrastructure Engineer ID Vikram Messer 12/20/2023 12:15 PM EDT [facility] Device ID [id number] 12/20/2023 12:15 PM EDT [facility] Specimen Type POC Capillary 12/20/2023 12:15 PM EDT [facility] Blood Capillary blood specimen / Unknown 12/20/2023 12:13 PM EDT 12/20/2023 12:15 PM EDT us Jonny Broussard MD LAB POINT OF CARE TE ST DOCKED DEVICE UNSOLICITED RESULTS Final Result Performing Organization Address City/State/[facility] Co de Phone Number [facility] [address] [place] [address] * ECHO, ADULT TRANSTHORACIC COMPLETE (12/20/2023 9:34 [...] mean PAP 43 mmHg WILLIAM ISCV PA OR(ACCEL) 44.4 mmHg WILLIAM ISCV Heart Rate 89 [facility] ISCV Ao Root Diam 38 mm WILLIAM ISCV LVOT diam 22 mm WILLIAM ISCV LVOT AREA 3.8 cm2 [facility] ISC[facility] LAV(MOD-4ch) 73 mL WILLIAM ISCV RA MOD 4Ch 50 mL WILLIAM ISCV NAUHN 23 mL/m2 WILLIAM ISCV RVSP 43 mmHg [...] CV ECHO PROCEDURES Final Resu lt * (ABNORMAL) POCT glucose meter (12/20/2023 8:19 AM EDT) POCT Glucose 150(H) 74 - 99 mg/dL 12/20/2023 8:21 AM EDT [facility] Comment:Accuracy of a glucos e result obtained from a capillary whole blood specimen relies upon adequate, non-compromised capillary blood flow. If the capillary glucose result is not consistent with the patient's clinical signs and symptoms, glucose testing should be repeated with either an arterial or venous sample on the glucometer or sent to the main labortory for testing. Comment 12/20/2023 8:21 AM EDT [facility] Energy Infrastructure Engineer ID Vikram Messer 12/20/2023 8:21 AM EDT [facility] Device ID [id number] 12/20/2023 8:21 AM EDT [facility] Specimen Type POC Capillary 12/20/2023 8:21 AM EDT [facility] Blood Capillary blood specimen / Unknown 12/20/2023 8:19 AM EDT 12/20/2023 8:21 AM EDT us Jonny Broussard MD LAB POINT OF CARE TE ST DOCKED DEVICE UNSOLICITED RESULTS Final Result [facility] [address] [place] [address] * (ABNORMAL) CBC and differential (12/20/2023 3:43 AM EDT) WBC Count 4.20 3.70 - 10.30 10*3/uL LAB HEMATOLOGY METHOD 12/20/2023 4:11 AM EDT [facility] RBC Count 3.56(L) 4.60 - 6.10 10*6/uL LAB HEMATOLOGY METHOD 12/20/2023 4:11 AM EDT [facility] HGB 8.8(L) 13.7 - 17.5 g/dL LAB HEMATOLOGY METHOD 12/20/2023 4:11 AM EDT [facility] HCT 28.1(L) 40.0 - 51.0 % LAB HEMATOLOGY METHOD 12/20/2023 4:11 AM EDT [facility] Platelet Count 201 155 - 369 10*3/uL LAB HEMATOLOGY METHOD 12/20/2023 4:11 AM EDT [facility] MCV 79 79 - 98 fL LAB HEMATOLOGY METHOD 12/20/2023 4:11 AM EDT [facility] MCH 24.7(L) 26.0 - 32.0 pg LAB HEMATOLOGY METHOD 12/20/2023 4:11 AM EDT [facility] MCHC 31.3 30.7 - 35.5 g/dL LAB HEMATOLOGY METHOD 12/20/2023 4:11 AM EDT [facility] RDW 17.8(H) 11.5 - 14.5 % LAB HEMATOLOGY METHOD 12/20/2023 4:11 AM EDT [facility] MPV 10.4 8.8 - 12.5 fL LAB HEMATOLOGY METHOD 12/20/2023 4:11 AM EDT [facility] nRBC 0.0 <=0.0 per 100 WBCs LAB HEMATOLOGY METHOD 12/20/2023 4:11 AM EDT [facility] Differential Type Automated LAB HEMATOLOGY METHOD 12/20/2023 4:11 AM EDT [facility] Neutrophils % 69.0 % LAB HEMATOLOGY METHOD 12/20/2023 4:11 AM EDT [facility] Lymphocytes % 16.0 % LAB HEMATOLOGY METHOD 12/20/2023 4:11 AM EDT [facility] Monocytes % 13.0 % LAB HEMATOLOGY METHOD 12/20/2023 4:11 AM EDT [facility] Eosinophils % 1.0 % LAB HEMATOLOGY METHOD 12/20/2023 4:11 AM EDT [facility] Basophils % 0.0 % LAB HEMATOLOGY METHOD 12/20/2023 4:11 AM EDT [facility] Immature Granulocytes % 1.0 % LAB HEMATOLOGY METHOD 12/20/2023 4:11 AM EDT [facility] Neutrophils Absolute 2.89 1.60 - 6.10 10*3/uL LAB HEMATOLOGY METHOD 12/20/2023 4:11 AM EDT [facility] Lymphocytes Absolute 0.68(L) 1.20 - 3.90 10*3/uL LAB HEMATOLOGY METHOD 12/20/2023 4:11 AM EDT [facility] Monocytes Absolute 0.53 0.30 - 0.90 10*3/uL LAB HEMATOLOGY METHOD 12/20/2023 4:11 AM EDT [facility] Eosinophils Absolute 0.04 0.00 - 0.50 10*3/uL LAB HEMATOLOGY METHOD 12/20/2023 4:11 AM EDT [facility] Basophils Absolute 0.01 0.00 - 0.10 10*3/uL LAB HEMATOLOGY METHOD 12/20/2023 4:11 AM EDT [facility] Immature Granulocytes Absolute 0.05 0.00 - 0.06 10*3/uL LAB HEMATOLOGY METHOD 12/20/2023 4:11 AM EDT [facility] Blood Venous blood specimen / Unknown Venipuncture / Unknown 12/20/2023 3:43 AM EDT 12/20/2023 4:02 AM EDT Narrative [facility] - 12/20/2023 4:11 AM EDT Therapeutic decision making should be based on absolute values, rather than percentages. us Tian Mattson MD LAB BLOOD ORDERABLES Final Resu lt Performing Organization Address City/[facility]/ZIP Co de Phone Number [facility] [address] [place] [address] * Phosphorus (12/20/2023 3:43 AM EDT) Phosphorus, Plasma 3.8 2.5 - 4.5 mg/dL 12/20/2023 4:28 AM EDT [facility] Blood Venous blood specimen / Unknown Venipuncture / Unknown 12/20/2023 3:43 AM EDT 12/20/2023 4:00 AM EDT Tian Mattson MD LAB BLOOD ORDERABLES Final Resu lt Performing Organization Address [facility]/ZIP Co de Phone Number [facility] [address] [place] [address] * Magnesium (12/20/2023 3:43 AM EDT) Magnesium, Plasma 1.9 1.9 - 2.4 mg/dL 12/20/2023 4:28 AM EDT [facility] Blood Venous blood specimen / Unknown Venipuncture / Unknown 12/20/2023 3:43 AM EDT 12/20/2023 4:00 AM EDT Tian Mattson MD LAB BLOOD ORDERABLES Final Resu lt Performing Organization Address City/[facility]/ZIP Co de Phone Number [facility] [address] [place] [address] * (ABNORMAL) Basic metabolic panel (12/20/2023 3:43 AM EDT) Glucose, Plasma 195(H) 74 - 99 mg/dL 12/20/2023 4:28 AM EDT [facility] BUN, Plasma 72(H) 7 - 21 mg/dL 12/20/2023 4:28 AM EDT [facility] Creatinine, Plasma 3.17(H) 0.70 - 1.20 mg/dL 12/20/2023 4:28 AM EDT [facility] BUN/Creatinine Ratio 12/20/2023 4:28 AM EDT [facility] Sodium, Plasma 136 136 - 145 mmol/L 12/20/2023 4:28 AM EDT [facility] Potassium, Plasma 4.5 3.6 - 4.9 mmol/L 12/20/2023 4:28 AM EDT [facility] Chloride, Plasma 97 97 - 107 mmol/L 12/20/2023 4:28 AM EDT [facility] CO2, Plasma 30(H) 22 - 29 mmol/L 12/20/2023 4:28 AM EDT [facility] Anion Gap 9 6 - 16 mmol/L 12/20/2023 4:28 AM EDT [facility] Total Calcium, Plasma 8.5(L) 8.9 - 10.2 mg/dL 12/20/2023 4:28 AM EDT [facility] eGFRcr 22.1 mL/min/1.7 3m*2 12/20/2023 4:28 AM EDT [facility] Comment:Reported eGFRcr in m L/min/1.73m2 is based the CKD-EPI 2020 equation that does not use a race coefficient. Blood Venous blood specimen / Unknown Venipuncture / Unknown 12/20/2023 3:43 AM EDT 12/20/2023 4:00 AM EDT us Tian Mattson MD LAB BLOOD ORDERABLES Final Resu lt [facility] [address] [place] [address] * (ABNORMAL) POCT glucose meter (12/19/2023 7:21 PM EDT) [facility] POCT Glucose 207(H) 74 - 99 mg/dL 12/19/2023 7:23 PM EDT [facility] Comment:Accuracy of [...] to the main labortory for testing. Comment 12/19/2023 7:23 PM EDT [facility] Energy Infrastructure Engineer ID Miriam Enamorado 12/19/19 7:23 PM EDT [facility] Device ID [id number] 12/19/2023 7:23 PM EDT [facility] Specimen Type POC Capillary 12/19/2023 7:23 PM EDT [facility] Blood Capillary blood specimen / Unknown 12/19/2023 7:21 PM EDT 12/19/2023 7:23 PM EDT Tian Mattson MD LAB POINT OF CARE TE ST DOCKED DEVICE UNSOLICITED RESULTS Final Result Performing Organization Address City/State/[facility] Co de Phone Number [facility] [address] [place] [address] * (ABNORMAL) POCT glucose meter (12/19/2023 5:04 PM EDT) [facility] POCT Glucose 237(H) 74 - 99 mg/dL 12/19/2023 5:06 PM EDT [facility] Comment:Accuracy of [...] to the main labortory for testing. Comment 12/19/2023 5:06 PM EDT [facility] Energy Infrastructure Engineer ID Dottie Uriarte 12/19/2023 5:06 PM EDT [facility] Device ID [id number] 12/19/2023 5:06 PM EDT [facility] Specimen Type POC Capillary 12/19/2023 5:06 PM EDT [facility] Blood Capillary blood specimen / Unknown 12/19/2023 5:04 PM EDT 12/19/2023 5:06 PM EDT Tian Mattson MD LAB POINT OF CARE TE ST DOCKED DEVICE UNSOLICITED RESULTS Final Result [facility] [address] [place] [address] * (ABNORMAL) Basic metabolic panel (12/19/2023 1:06 PM EDT) Glucose, Plasma 157(H) 74 - 99 mg/dL 12/19/2023 1:47 PM EDT [facility] BUN, Plasma 71(H) 7 - 21 mg/dL 12/19/2023 1:47 PM EDT [facility] Creatinine, Plasma 3.10(H) 0.70 - 1.20 mg/dL 12/19/2023 1:47 PM EDT [facility] BUN/Creatinine Ratio 23 12/19/2023 1:47 PM EDT [facility] Sodium, Plasma 139 136 - 145 mmol/L 12/19/2023 1:47 PM EDT [facility] Potassium, Plasma 4.4 3.6 - 4.9 mmol/L 12/19/2023 1:47 PM EDT [facility] Chloride, Plasma 99 97 - 107 mmol/L 12/19/2023 1:47 PM EDT [facility] CO2, Plasma 28 22 - 29 mmol/L 12/19/2023 1:47 PM EDT [facility] Anion Gap 12 6 - 16 mmol/L 12/19/2023 1:47 PM EDT [facility] Total Calcium, Plasma 8.8(L) 8.9 - 10.2 mg/dL 12/19/2023 1:47 PM EDT [facility] eGFRcr 22.7 mL/min/1.7 3m*2 12/19/2023 1:47 PM EDT [facility] Comment:Reported eGFRcr in m L/min/1.73m2 is based the CKD-EPI 2020 equation that does not use a race coefficient. Blood Venous blood specimen / Unknown Venipuncture / Unknown 12/19/2023 1:06 PM EDT 12/19/2023 1:17 PM EDT Tian Mattson MD LAB BLOOD ORDERABLES Final Resu lt [facility] [address] [place] [address] * (ABNORMAL) POCT glucose meter (12/19/2023 12:34 PM EDT) POCT Glucose 143(H) 74 - 99 mg/dL 12/19/2023 12:36 PM EDT [facility] Comment:Accuracy of [...] to the main labortory for testing. Comment 12/19/2023 12:36 PM EDT [facility] Energy Infrastructure Engineer ID Dottie Uriarte 12/19/2023 12:36 PM EDT [facility] Device ID [id number] 12/19/2023 12:36 PM EDT [facility] Specimen Type POC Capillary 12/19/2023 12:36 PM EDT [facility] Blood Capillary blood specimen / Unknown 12/19/2023 12:34 PM EDT 12/19/2023 12:36 PM EDT Tian Mattson MD LAB POINT OF CARE TE ST DOCKED DEVICE UNSOLICITED RESULTS Final Result [facility] [address] [place] [address] * (ABNORMAL) POCT glucose meter (12/19/2023 8:49 AM EDT) POCT Glucose 145(H) 74 - 99 mg/dL 12/19/2023 8:50 AM EDT [facility] Comment:Accuracy of [...] to the main labortory for testing. Comment 12/19/2023 8:50 AM EDT [facility] Energy Infrastructure Engineer ID Dottie Uriarte 12/19/2023 8:50 AM EDT [facility] Device ID [id number] 12/19/2023 8:50 AM EDT [facility] Specimen Type POC Capillary 12/19/2023 8:50 AM EDT [facility] Blood Capillary blood specimen / Unknown 12/19/2023 8:49 AM EDT 12/19/2023 8:50 AM EDT us Tian Mattson MD LAB POINT OF CARE TE ST DOCKED DEVICE UNSOLICITED RESULTS Final Result [facility] [address] [place] [address] * (ABNORMAL) CBC and differential (12/19/2023 4:26 AM EDT) [facility] WBC Count 4.07 3.70 - 10.30 10*3/uL LAB HEMATOLOGY METHOD 12/19/2023 4:45 AM EDT [facility] RBC Count 3.67(L) 4.60 - 6.10 10*6/uL LAB HEMATOLOGY METHOD 12/19/2023 4:45 AM EDT [facility] HGB 8.9(L) 13.7 - 17.5 g/dL LAB HEMATOLOGY METHOD 12/19/2023 4:45 AM EDT [facility] HCT 29.5(L) 40.0 - 51.0 % LAB HEMATOLOGY METHOD 12/19/2023 4:45 AM EDT [facility] Platelet Count 211 155 - 369 10*3/uL LAB HEMATOLOGY METHOD 12/19/2023 4:45 AM EDT [facility] MCV 80 79 - 98 fL LAB HEMATOLOGY METHOD 12/19/2023 4:45 AM EDT [facility] MCH 24.3(L) 26.0 - 32.0 pg LAB HEMATOLOGY METHOD 12/19/2023 4:45 AM EDT [facility] MCHC 30.2(L) 30.7 - 35.5 g/dL LAB HEMATOLOGY METHOD 12/19/2023 4:45 AM EDT [facility] RDW 17.8(H) 11.5 - 14.5 % LAB HEMATOLOGY METHOD 12/19/2023 4:45 AM EDT [facility] MPV 10.9 8.8 - 12.5 fL LAB HEMATOLOGY METHOD 12/19/2023 4:45 AM EDT [facility] nRBC 0.0 <=0.0 per 100 WBCs LAB HEMATOLOGY METHOD 12/19/2023 4:45 AM EDT [facility] Differential Type Automated LAB HEMATOLOGY METHOD 12/19/2023 4:45 AM EDT [facility] Neutrophils % 64.0 % LAB HEMATOLOGY METHOD 12/19/2023 4:45 AM EDT [facility] Lymphocytes % 19.0 % LAB HEMATOLOGY METHOD 12/19/2023 4:45 AM EDT [facility] Monocytes % 13.0 % LAB HEMATOLOGY METHOD 12/19/2023 4:45 AM EDT [facility] Eosinophils % 2.0 % LAB HEMATOLOGY METHOD 12/19/2023 4:45 AM EDT [facility] Basophils % 1.0 % LAB HEMATOLOGY METHOD 12/19/2023 4:45 AM EDT [facility] Immature Granulocytes % 1.0 % LAB HEMATOLOGY METHOD 12/19/2023 4:45 AM EDT [facility] Neutrophils Absolute 2.60 1.60 - 6.10 10*3/uL LAB HEMATOLOGY METHOD 12/19/2023 4:45 AM EDT [facility] Lymphocytes Absolute 0.77(L) 1.20 - 3.90 10*3/uL LAB HEMATOLOGY METHOD 12/19/2023 4:45 AM EDT [facility] Monocytes Absolute 0.54 0.30 - 0.90 10*3/uL LAB HEMATOLOGY METHOD 12/19/2023 4:45 AM EDT [facility] Eosinophils Absolute 0.09 0.00 - 0.50 10*3/uL LAB HEMATOLOGY METHOD 12/19/2023 4:45 AM EDT [facility] Basophils Absolute 0.02 0.00 - 0.10 10*3/uL LAB HEMATOLOGY METHOD 12/19/2023 4:45 AM EDT [facility] Immature Granulocytes Absolute 0.05 0.00 - 0.06 10*3/uL LAB HEMATOLOGY METHOD 12/19/2023 4:45 AM EDT [facility] Blood Venous blood specimen / Unknown Venipuncture / Unknown 12/19/2023 4:26 AM EDT 12/19/2023 4:32 AM EDT Narrative [facility] - 12/19/2023 4:45 AM EDT Therapeutic decision making should be based on absolute values, rather than percentages. us Tian Mattson MD LAB BLOOD ORDERABLES Final Resu lt Performing Organization Address City/[facility]/ZIP Co de Phone Number [facility] [address] [place] [address] * Phosphorus (12/19/2023 4:26 AM EDT) Phosphorus, Plasma 3.5 2.5 - 4.5 mg/dL 12/19/2023 5:00 AM EDT [facility] Blood Venous blood specimen / Unknown Venipuncture / Unknown 12/19/2023 4:26 AM EDT 12/19/2023 4:32 AM EDT us Tian Mattson MD LAB BLOOD ORDERABLES Final Resu lt Performing Organization Address [facility]/[place] [address] * Magnesium (12/19/2023 4:26 AM EDT) Magnesium, Plasma 2.0 1.9 - 2.4 mg/dL 12/19/2023 5:00 AM EDT [facility] Blood Venous blood specimen / Unknown Venipuncture / Unknown 12/19/2023 4:26 AM EDT 12/19/2023 4:32 AM EDT us Tian Mattson MD LAB BLOOD ORDERABLES Final Resu lt Performing Organization Address City/[facility]/ZIP Co de Phone Number [facility] [address] [place] [address] * (ABNORMAL) Basic metabolic panel (12/19/2023 4:26 AM EDT) Glucose, Plasma 148(H) 74 - 99 mg/dL 12/19/2023 5:00 AM EDT [facility] BUN, Plasma 69(H) 7 - 21 mg/dL 12/19/2023 5:00 AM EDT [facility] Creatinine, Plasma 3.07(H) 0.70 - 1.20 mg/dL 12/19/2023 5:00 AM EDT [facility] BUN/Creatinine Ratio 12/19/2023 5:00 AM EDT [facility] Sodium, Plasma 139 136 - 145 mmol/L 12/19/2023 5:00 AM EDT [facility] Potassium, Plasma 4.6 3.6 - 4.9 mmol/L 12/19/2023 5:00 AM EDT [facility] Chloride, Plasma 101 97 - 107 mmol/L 12/19/2023 5:00 AM EDT [facility] CO2, Plasma 27 22 - 29 mmol/L 12/19/2023 5:00 AM EDT [facility] Anion Gap 11 6 - 16 mmol/L 12/19/2023 5:00 AM EDT [facility] Total Calcium, Plasma 8.4(L) 8.9 - 10.2 mg/dL 12/19/2023 5:00 AM EDT [facility] eGFRcr 23.0 mL/min/1.7 3m*2 12/19/2023 5:00 AM EDT [facility] Comment:Reported eGFRcr in m L/min/1.73m2 is based the CKD-EPI 2020 equation that does not use a race coefficient. Blood Venous blood specimen / Unknown Venipuncture / Unknown 12/19/2023 4:26 AM EDT 12/19/2023 4:32 AM EDT us Tian Mattson MD LAB BLOOD ORDERABLES Final Resu lt [facility] [address] [place] [address] * (ABNORMAL) POCT glucose meter (12/18/2023 8:42 PM EDT) [facility] POCT Glucose 189(H) 74 - 99 mg/dL 12/18/2023 8:44 PM EDT [facility] Comment:Accuracy of a glucos e result obtained from a capillary whole blood specimen relies upon adequate, non-compromised capillary blood flow. If the capillary glucose result is not consistent with the patient's clinical signs and symptoms, glucose testing should be repeated with either an arterial or venous sample on the glucometer or sent to the main labortory for testing. Comment 12/18/2023 8:44 PM EDT [facility] Energy Infrastructure Engineer ID GianfrancoRuth Ann 024 8:44 PM EDT [facility] Device ID [id number] 12/18/2023 8:44 PM EDT [facility] Specimen Type POC Capillary 12/18/2023 8:44 PM EDT [facility] Blood Capillary blood specimen / Unknown 12/18/2023 8:42 PM EDT 12/18/2023 8:44 PM EDT Tian Mattson MD LAB POINT OF CARE TE ST DOCKED DEVICE UNSOLICITED RESULTS Final Result Performing Organization Address City/State/[facility] Co de Phone Number [facility] [address] [place] [address] * (ABNORMAL) POCT glucose meter (12/18/2023 5:34 PM EDT) [facility] POCT Glucose 209(H) 74 - 99 mg/dL 12/18/2023 5:36 PM EDT [facility] Comment:Accuracy of [...] to the main labortory for testing. Comment 12/18/2023 5:36 PM EDT [facility] Energy Infrastructure Engineer ID Gurinder García 5:36 PM EDT [facility] Device ID [id number] 12/18/2023 5:36 PM EDT [facility] Specimen Type POC Capillary 12/18/2023 5:36 PM EDT [facility] Blood Capillary blood specimen / Unknown 12/18/2023 5:34 PM EDT 12/18/2023 5:36 PM EDT Tian Mattson MD LAB POINT OF CARE TE ST DOCKED DEVICE UNSOLICITED RESULTS Final Result Performing Organization Address City/[facility]/ZIP Co de Phone Number [facility] [address] [place] [address] * Magnesium (12/18/2023 3:06 PM EDT) Magnesium, Plasma 2.2 1.9 - 2.4 mg/dL 12/18/2023 6:06 PM EDT [facility] Blood Venous blood specimen / Unknown Venipuncture / Unknown 12/18/2023 3:06 PM EDT 12/18/2023 3:16 PM EDT Tian Mattson MD LAB BLOOD ORDERABLES Final Resu lt [facility] [address] [place] [address] * (ABNORMAL) Basic metabolic panel (12/18/2023 3:06 PM EDT) Glucose, Plasma 212(H) 74 - 99 mg/dL 12/18/2023 4:02 PM EDT [facility] BUN, Plasma 63(H) 7 - 21 mg/dL 12/18/2023 4:02 PM EDT [facility] Creatinine, Plasma 2.91(H) 0.70 - 1.20 mg/dL 12/18/2023 4:02 PM EDT [facility] BUN/Creatinine Ratio 22 12/18/2023 4:02 PM EDT [facility] Sodium, Plasma 137 136 - 145 mmol/L 12/18/2023 4:02 PM EDT [facility] Potassium, Plasma 4.3 3.6 - 4.9 mmol/L 12/18/2023 4:02 PM EDT [facility] Chloride, Plasma 102 97 - 107 mmol/L 12/18/2023 4:02 PM EDT [facility] CO2, Plasma 25 22 - 29 mmol/L 12/18/2023 4:02 PM EDT [facility] Anion Gap 10 6 - 16 mmol/L 12/18/2023 4:02 PM EDT [facility] Total Calcium, Plasma 7.8(L) 8.9 - 10.2 mg/dL 12/18/2023 4:02 PM EDT [facility] eGFRcr 24.5 mL/min/1.7 3m*2 12/18/2023 4:02 PM EDT [facility] Comment:Reported eGFRcr in m L/min/1.73m2 is based the CKD-EPI 2020 equation that does not use a race coefficient. Blood Venous blood specimen / Unknown Venipuncture / Unknown 12/18/2023 3:06 PM EDT 12/18/2023 3:16 PM EDT us Tian Mattson MD LAB BLOOD ORDERABLES Final Resu lt [facility] [address] [place] [address] * ECG Adult (12/18/2023 2:08 PM EDT) EKG DIAGNOSIS CLASS Abnormal MUSE ECG Ventricular Rate 92 BPM MUSE ECG Atrial Rate 92 BPM MUSE ECG OR Interval 156 ms MUSE ECG QRSD Interval 120 ms MUSE ECG QT Interval 372 ms MUSE ECG QTC Interval 460 ms MUSE ECG P [address] 60 degrees MUSE ECG R [address] 5 degrees MUSE ECG T Wave [address] 139 degrees MUSE ECG Diagnosis Normal sinus rhythm MUSE ECG Diagnosis Minimal voltage criteria for LVH, may be normal variant MUSE ECG Diagnosis ( MUSE ECG Diagnosis [place] product MUSE ECG Diagnosis ) MUSE ECG Diagnosis Possible MUSE ECG Diagnosis Anterior infarct MUSE ECG Diagnosis , age undetermined MUSE ECG Diagnosis Abnormal ECG MUSE ECG Diagnosis Confirmed by Harlan Ricketts ([id number]) on 12/19/2023 5:59:03 PM MUSE ECG 12/18/2023 2:08 PM EDT 12/19/2023 5:59 PM EDT us Tian Mattson MD ECG ORDERABLES Final Result Performing Organization Address City/[facility]/ZIP Co de Phone Number MUSE ECG * (ABNORMAL) POCT glucose meter (12/18/2023 12:32 PM EDT) [facility] POCT Glucose 198(H) 74 - 99 mg/dL 12/18/2023 12:34 PM EDT [facility] Comment:Accuracy of [...] to the main labortory for testing. Comment 12/18/2023 12:34 PM EDT [facility] Energy Infrastructure Engineer ID Gurinder García 12:34 PM EDT [facility] Device ID [id number] 12/18/2023 12:34 PM EDT [facility] Specimen Type POC Capillary 12/18/2023 12:34 PM EDT [facility] Blood Capillary blood specimen / Unknown 12/18/2023 12:32 PM EDT 12/18/2023 12:34 PM EDT Tian Mattson MD LAB POINT OF CARE TE ST DOCKED DEVICE UNSOLICITED RESULTS Final Result Performing Organization Address [facility] Co de Phone Number [facility] [address] [place] [address] * (ABNORMAL) POCT glucose meter (12/18/2023 8:45 AM EDT) [facility] POCT Glucose 196(H) 74 - 99 mg/dL 12/18/2023 8:47 AM EDT [facility] Comment:Accuracy of [...] to the main labortory for testing. Comment 12/18/2023 8:47 AM EDT [facility] Energy Infrastructure Engineer ID Gurinder García 8:47 AM EDT [facility] Device ID [id number] 12/18/2023 8:47 AM EDT [facility] Specimen Type POC Capillary 12/18/2023 8:47 AM EDT [facility] Blood Capillary blood specimen / Unknown 12/18/2023 8:45 AM EDT 12/18/2023 8:47 AM EDT us Tian Mattson MD LAB POINT OF CARE TE ST DOCKED DEVICE UNSOLICITED RESULTS Final Result [facility] [address] [place] [id number] * (ABNORMAL) CBC and differential (12/18/2023 4:43 AM EDT) WBC Count 3.82 3.70 - 10.30 10*3/uL LAB HEMATOLOGY METHOD 12/18/2023 4:58 AM EDT [facility] RBC Count 3.54(L) 4.60 - 6.10 10*6/uL LAB HEMATOLOGY METHOD 12/18/2023 4:58 AM EDT [facility] HGB 8.7(L) 13.7 - 17.5 g/dL LAB HEMATOLOGY METHOD 12/18/2023 4:58 AM EDT [facility] HCT 28.1(L) 40.0 - 51.0 % LAB HEMATOLOGY METHOD 12/18/2023 4:58 AM EDT [facility] Platelet Count 201 155 - 369 10*3/uL LAB HEMATOLOGY METHOD 12/18/2023 4:58 AM EDT [facility] MCV 79 79 - 98 fL LAB HEMATOLOGY METHOD 12/18/2023 4:58 AM EDT [facility] MCH 24.6(L) 26.0 - 32.0 pg LAB HEMATOLOGY METHOD 12/18/2023 4:58 AM EDT [facility] MCHC 31.0 30.7 - 35.5 g/dL LAB HEMATOLOGY METHOD 12/18/2023 4:58 AM EDT [facility] RDW 17.8(H) 11.5 - 14.5 % LAB HEMATOLOGY METHOD 12/18/2023 4:58 AM EDT [facility] MPV 10.7 8.8 - 12.5 fL LAB HEMATOLOGY METHOD 12/18/2023 4:58 AM EDT [facility] nRBC 0.0 <=0.0 per 100 WBCs LAB HEMATOLOGY METHOD 12/18/2023 4:58 AM EDT [facility] Differential Type Automated LAB HEMATOLOGY METHOD 12/18/2023 4:58 AM EDT [facility] Neutrophils % 59.0 % LAB HEMATOLOGY METHOD 12/18/2023 4:58 AM EDT [facility] Lymphocytes % 23.0 % LAB HEMATOLOGY METHOD 12/18/2023 4:58 AM EDT [facility] Monocytes % 15.0 % LAB HEMATOLOGY METHOD 12/18/2023 4:58 AM EDT [facility] Eosinophils % 2.0 % LAB HEMATOLOGY METHOD 12/18/2023 4:58 AM EDT [facility] Basophils % 0.0 % LAB HEMATOLOGY METHOD 12/18/2023 4:58 AM EDT [facility] Immature Granulocytes % 1.0 % LAB HEMATOLOGY METHOD 12/18/2023 4:58 AM EDT [facility] Neutrophils Absolute 2.27 1.60 - 6.10 10*3/uL LAB HEMATOLOGY METHOD 12/18/2023 4:58 AM EDT [facility] Lymphocytes Absolute 0.86(L) 1.20 - 3.90 10*3/uL LAB HEMATOLOGY METHOD 12/18/2023 4:58 AM EDT [facility] Monocytes Absolute 0.58 0.30 - 0.90 10*3/uL LAB HEMATOLOGY METHOD 12/18/2023 4:58 AM EDT [facility] Eosinophils Absolute 0.08 0.00 - 0.50 10*3/uL LAB HEMATOLOGY METHOD 12/18/2023 4:58 AM EDT [facility] Basophils Absolute 0.01 0.00 - 0.10 10*3/uL LAB HEMATOLOGY METHOD 12/18/2023 4:58 AM EDT [facility] Immature Granulocytes Absolute 0.02 0.00 - 0.06 10*3/uL LAB HEMATOLOGY METHOD 12/18/2023 4:58 AM EDT [facility] Blood Venous blood specimen / Unknown Venipuncture / Unknown 12/18/2023 4:43 AM EDT 12/18/2023 4:50 AM EDT Narrative [facility] - 12/18/2023 4:58 AM EDT Therapeutic decision making should be based on absolute values, rather than percentages. us Tina Mattson MD LAB BLOOD ORDERABLES Final Resu lt Performing Organization Address [facility]/ZIP Co de Phone Number [facility] [address] [place] [address] * Magnesium (12/18/2023 4:42 AM EDT) Magnesium, Plasma 1.9 1.9 - 2.4 mg/dL 12/18/2023 5:27 AM EDT [facility] [facility] Blood Venous blood specimen / Unknown Venipuncture / Unknown 12/18/2023 4:42 AM EDT 12/18/2023 4:49 AM EDT us Tian Mattson MD LAB BLOOD ORDERABLES Final Resu lt Performing Organization Address [facility] Co de Phone Number [facility] [address] [place] [address] * (ABNORMAL) Basic metabolic panel (12/18/2023 4:42 AM EDT) Glucose, Plasma 157(H) 74 - 99 mg/dL 12/18/2023 5:27 AM EDT [facility] BUN, Plasma 68(H) 7 - 21 mg/dL 12/18/2023 5:27 AM EDT [facility] Creatinine, Plasma 3.19(H) 0.70 - 1.20 mg/dL 12/18/2023 5:27 AM EDT [facility] BUN/Creatinine Ratio 12/18/2023 5:27 AM EDT [facility] Sodium, Plasma 139 136 - 145 mmol/L 12/18/2023 5:27 AM EDT [facility] Potassium, Plasma 4.8 3.6 - 4.9 mmol/L 12/18/2023 5:27 AM EDT [facility] Chloride, Plasma 104 97 - 107 mmol/L 12/18/2023 5:27 AM EDT [facility] CO2, Plasma 25 22 - 29 mmol/L 12/18/2023 5:27 AM EDT [facility] Anion Gap 10 6 - 16 mmol/L 12/18/2023 5:27 AM EDT [facility] Total Calcium, Plasma 8.0(L) 8.9 - 10.2 mg/dL 12/18/2023 5:27 AM EDT [facility] eGFRcr 22.0 mL/min/1.7 3m*2 12/18/2023 5:27 AM EDT [facility] Comment:Reported eGFRcr in m L/min/1.73m2 is based the CKD-EPI 2020 equation that does not use a race coefficient. Blood Venous blood specimen / Unknown Venipuncture / Unknown 12/18/2023 4:42 AM EDT 12/18/2023 4:49 AM EDT us Tian Mattson MD LAB BLOOD ORDERABLES Final Resu lt Performing Organization Address [facility]/ZIP Co de Phone Number [facility] [address] [place] [address] * Lavender Top (12/17/2023 9:37 PM EDT) Extra Hold for add-ons 12/18/2023 12:02 AM EDT [facility] Comment:Auto resulted. Blood Venous blood specimen / Unknown 12/17/2023 9:37 PM EDT 12/17/2023 9:57 PM EDT us Tian Mattson MD LAB BLOOD ORDERABLES Final Resu lt [facility] [address] [place] [address] * Blood Culture (Aerobic/Anaerobet Set) (12/17/2023 9:11 PM EDT) Culture No growth at day 5 MIKE 12/22/2023 10:01 PM EDT [facility] Blood Structure of antecubital vein / Unknown Venipuncture / Unknown 12/17/2023 9:11 PM EDT 12/17/2023 9:47 PM EDT us Tian Mattson MD LAB MICROBIOLOGY - GENERAL ORDE MARYURILES Final Result Performing Organization Address [facility]/ZIP Co de Phone Number [facility] [address] [place] [address] * Phosphorus (12/17/2023 9:11 PM EDT) Phosphorus, Plasma 3.5 2.5 - 4.5 mg/dL 12/17/2023 10:33 PM EDT [facility] Blood Venous blood specimen / Unknown Venipuncture / Unknown 12/17/2023 9:11 PM EDT 12/17/2023 9:57 PM EDT us Tian Mattson MD LAB BLOOD ORDERABLES Final Resu lt Performing Organization Address [facility] Co de Phone Number [facility] [address] [place] [address] * Magnesium (12/17/2023 9:11 PM EDT) Magnesium, Plasma 1.9 1.9 - 2.4 mg/dL 12/17/2023 10:33 PM EDT [facility] Blood Venous blood specimen / Unknown Venipuncture / Unknown 12/17/2023 9:11 PM EDT 12/17/2023 9:57 PM EDT us Tian Mattson MD LAB BLOOD ORDERABLES Final Resu lt Performing Organization Address [facility] Co de Phone Number [facility] [address] [place] [address] * (ABNORMAL) Basic metabolic panel (12/17/2023 9:11 PM EDT) Glucose, Plasma 205(H) 74 - 99 mg/dL 12/17/2023 10:33 PM EDT [facility] BUN, Plasma 68(H) 7 - 21 mg/dL 12/17/2023 10:33 PM EDT [facility] Creatinine, Plasma 3.04(H) 0.70 - 1.20 mg/dL 12/17/2023 10:33 PM EDT [facility] BUN/Creatinine Ratio 22 12/17/2023 10:33 PM EDT [facility] Sodium, Plasma 138 136 - 145 mmol/L 12/17/2023 10:33 PM EDT [facility] Potassium, Plasma 4.7 3.6 - 4.9 mmol/L 12/17/2023 10:33 PM EDT [facility] Chloride, Plasma 103 97 - 107 mmol/L 12/17/2023 10:33 PM EDT [facility] CO2, Plasma 25 22 - 29 mmol/L 12/17/2023 10:33 PM EDT [facility] Anion Gap 10 6 - 16 mmol/L 12/17/2023 10:33 PM EDT [facility] Total Calcium, Plasma 8.3(L) 8.9 - 10.2 mg/dL 12/17/2023 10:33 PM EDT [facility] eGFRcr 23.3 mL/min/1.7 3m*2 12/17/2023 10:33 PM EDT [facility] Comment:Reported eGFRcr in m L/min/1.73m2 is based the CKD-EPI 2020 equation that does not use a race coefficient. Blood Venous blood specimen / Unknown Venipuncture / Unknown 12/17/2023 9:11 PM EDT 12/17/2023 9:57 PM EDT us Tian Mattson MD LAB BLOOD ORDERABLES Final Resu lt [facility] [address] [place] [address] * (ABNORMAL) POCT glucose meter (12/17/2023 7:32 PM EDT) POCT Glucose 198(H) 74 - 99 mg/dL 12/17/2023 7:34 PM EDT [facility] Comment:Accuracy of a glucos e result obtained from a capillary whole blood specimen relies upon adequate, non-compromised capillary blood flow. If the capillary glucose result is not consistent with the patient's clinical signs and symptoms, glucose testing should be repeated with either an arterial or venous sample on the glucometer or sent to the main labortory for testing. Comment 12/17/2023 7:34 PM EDT [facility] Energy Infrastructure Engineer ID Michele Carmona II 12/17/2023 7:34 PM EDT [facility] Device ID [id number] 12/17/2023 7:34 PM EDT [facility] Specimen Type POC Capillary 12/17/2023 7:34 PM EDT [facility] Blood Capillary blood specimen / Unknown 12/17/2023 7:32 PM EDT 12/17/2023 7:34 PM EDT us Tian Mattson MD LAB POINT OF CARE TE ST DOCKED DEVICE UNSOLICITED RESULTS Final Result Performing Organization Address City/[facility] Co de Phone Number [facility] [address] [place] [address] * (ABNORMAL) POCT glucose meter (12/17/2023 6:01 PM EDT) [facility] Signature POCT Glucose 215(H) 74 - 99 mg/dL 12/17/2023 6:03 PM EDT [facility] Comment:Accuracy of [...] to the main labortory for testing. Comment 12/17/2023 6:03 PM EDT [facility] Energy Infrastructure Engineer ID Dottie Uriarte 12/17/2023 6:03 PM EDT [facility] Device ID [id number] 12/17/2023 6:03 PM EDT [facility] Specimen Type POC Capillary 12/17/2023 6:03 PM EDT [facility] Blood Capillary blood specimen / Unknown 12/17/2023 6:01 PM EDT 12/17/2023 6:03 PM EDT us Tian Mattson MD LAB POINT OF CARE TE ST DOCKED DEVICE UNSOLICITED RESULTS Final Result Performing Organization Address City/[facility]/ZIP Co de Phone Number [facility] [address] [place] [address] * (ABNORMAL) Basic metabolic panel (12/17/2023 2:19 PM EDT) Glucose, Plasma 263(H) 74 - 99 mg/dL 12/17/2023 3:16 PM EDT [facility] BUN, Plasma 68(H) 7 - 21 mg/dL 12/17/2023 3:16 PM EDT [facility] Creatinine, Plasma 2.81(H) 0.70 - 1.20 mg/dL 12/17/2023 3:16 PM EDT [facility] BUN/Creatinine Ratio 24 12/17/2023 3:16 PM EDT [facility] Sodium, Plasma 135(L) 136 - 145 mmol/L 12/17/2023 3:16 PM EDT [facility] Potassium, Plasma 5.5(H) 3.6 - 4.9 mmol/L 12/17/2023 3:16 PM EDT [facility] Chloride, Plasma 103 97 - 107 mmol/L 12/17/2023 3:16 PM EDT [facility] CO2, Plasma 26 22 - 29 mmol/L 12/17/2023 3:16 PM EDT [facility] Anion Gap 6 6 - 16 mmol/L 12/17/2023 3:16 PM EDT [facility] Total Calcium, Plasma 8.1(L) 8.9 - 10.2 mg/dL 12/17/2023 3:16 PM EDT [facility] eGFRcr 25.6 mL/min/1.7 3m*2 12/17/2023 3:16 PM EDT [facility] Comment:Reported eGFRcr in m L/min/1.73m2 is based the CKD-EPI 2020 equation that does not use a race coefficient. Blood Venous blood specimen / Unknown Venipuncture / Unknown 12/17/2023 2:19 PM EDT 12/17/2023 2:58 PM EDT us Tian Mattson MD LAB BLOOD ORDERABLES Final Resu lt [facility] [address] [place] [address] * (ABNORMAL) POCT glucose meter (12/17/2023 12:56 PM EDT) [facility] POCT Glucose 217(H) 74 - 99 mg/dL 12/17/2023 12:58 PM EDT [facility] Comment:Accuracy of a glucos e result obtained from a capillary whole blood specimen relies upon adequate, non-compromised capillary blood flow. If the capillary glucose result is not consistent with the patient's clinical signs and symptoms, glucose testing should be repeated with either an arterial or venous sample on the glucometer or sent to the main labortory for testing. Comment 12/17/2023 12:58 PM EDT [facility] Energy Infrastructure Engineer ID Dottie Uriarte 12/17/2023 12:58 PM EDT [facility] Device ID [id number] 12/17/2023 12:58 PM EDT [facility] Specimen Type POC Capillary 12/17/2023 12:58 PM EDT [facility] Blood Capillary blood specimen / Unknown 12/17/2023 12:56 PM EDT 12/17/2023 12:58 PM EDT us Tian Mattson MD LAB POINT OF CARE TE ST DOCKED DEVICE UNSOLICITED RESULTS Final Result Performing Organization Address City/[facility]/ZIP Co de Phone Number [facility] [address] [place] [address] * Ferritin (12/17/2023 9:51 AM EDT) [facility] Ferritin, Serum 131 20 - 400 ng/mL 12/17/2023 10:34 AM EDT [facility] Blood Venous blood specimen / Unknown Venipuncture / Unknown 12/17/2023 9:51 AM EDT 12/17/2023 9:59 AM EDT us Tian Mattson MD LAB BLOOD ORDERABLES Final Resu lt [facility] [address] [place] [address] * (ABNORMAL) Blood gas panel, venous (12/17/2023 9:51 AM EDT) pH, Venous 7.35 7.32 - 7.43 LAB HEMATOLOGY METHOD 12/17/2023 10:03 AM EDT [facility] pCO2, Venous 47 40 - 55 mmHg LAB HEMATOLOGY METHOD 12/17/2023 10:03 AM EDT [facility] pO2, Venous 44(H) 25 - 40 mmHg LAB HEMATOLOGY METHOD 12/17/2023 10:03 AM EDT [facility] SO2, Measured, Venous 75 65 - 80 % LAB HEMATOLOGY METHOD 12/17/2023 10:03 AM EDT [facility] Base Excess, Venous -0.1 -2.0 - 3.0 mmol/L LAB HEMATOLOGY METHOD 12/17/2023 10:03 AM EDT [facility] Bicarbonate, Calculated, Venous 26 22 - 26 mmol/L LAB HEMATOLOGY METHOD 12/17/2023 10:03 AM EDT [facility] Hematocrit, Whole Blood 28.3(L) 40.0 - 51.0 % LAB HEMATOLOGY METHOD 12/17/2023 10:03 AM EDT [facility] Sodium, Whole Blood 138 136 - 145 mmol/L LAB HEMATOLOGY METHOD 12/17/2023 10:03 AM EDT [facility] Potassium, Whole Blood 4.6 3.6 - 4.9 mmol/L LAB HEMATOLOGY METHOD 12/17/2023 10:03 AM EDT [facility] Chloride, Whole Blood 106 97 - 107 mmol/L LAB HEMATOLOGY METHOD 12/17/2023 10:03 AM EDT [facility] Glucose, Whole Blood 196(H) 74 - 99 mg/dL LAB HEMATOLOGY METHOD 12/17/2023 10:03 AM EDT [facility] Lactate, Venous, Whole Blood 0.8 0.5 - 2.2 mmol/L LAB HEMATOLOGY METHOD 12/17/2023 10:03 AM EDT [facility] Ionized Calcium, Whole Blood 4.5(L) 4.6 - 5.1 mg/dL LAB HEMATOLOGY METHOD 12/17/2023 10:03 AM EDT [facility] Blood Venous blood specimen / Unknown Venipuncture / Unknown 12/17/2023 9:51 AM EDT 12/17/2023 10:01 AM EDT Tian Mattson MD LAB BLOOD ORDERABLES Final Resu lt Performing Organization Address [facility] Co de Phone Number [facility] [address] [place] [address] * (ABNORMAL) POCT glucose meter (12/17/2023 8:46 AM EDT) POCT Glucose 190(H) 74 - 99 mg/dL 12/17/2023 8:48 AM EDT [facility] Comment:Accuracy of a glucos e result obtained from a capillary whole blood specimen relies upon adequate, non-compromised capillary blood flow. If the capillary glucose result is not consistent with the patient's clinical signs and symptoms, glucose testing should be repeated with either an arterial or venous sample on the glucometer or sent to the main labortory for testing. Comment 12/17/2023 8:48 AM EDT [facility] Energy Infrastructure Engineer ID Miranda Bear 12/17/2023 8:48 AM EDT [facility] Device ID [id number] 12/17/2023 8:48 AM EDT [facility] Specimen Type POC Capillary 12/17/2023 8:48 AM EDT [facility] Blood Capillary blood specimen / Unknown 12/17/2023 8:46 AM EDT 12/17/2023 8:48 AM EDT Tian Mattson MD LAB POINT OF CARE TE ST DOCKED DEVICE UNSOLICITED RESULTS Final Result Performing Organization Address [facility] Co de Phone Number [facility] [address] [place] [address] * US Abdomen Doppler Limited (12/17/2023 8:31 [...] Camilla Barbosa MD on 12/17/2023 8:42 AM us Tian Mattson MD IMG US PROCEDURES Final Result * Protein, Random, Urine with Creatinine (12/17/2023 6:18 AM EDT) Protein, Urine 116 mg/dL 12/17/2023 7:46 AM EDT [facility] Creatinine, Urine 37 mg/dL 12/17/2023 7:46 AM EDT [facility] Protein/Creatin ine Ratio 3.1 mg/mg Creat 12/17/2023 7:46 AM EDT [facility] Urine Urine specimen obtained by clean catch procedure / Unknown Non-blood Collection / Unknown 12/17/2023 6:18 AM EDT 12/17/2023 6:22 AM EDT us Tian Mattson MD LAB URINE ORDERABLES Final Resu lt Performing Organization Address City/[facility]/ZIP Co de Phone Number [facility] [address] [place] [address] * Lactate, venous (12/17/2023 5:10 AM EDT) Lactate, Venous, Whole Blood 1.0 0.5 - 2.2 mmol/L LAB HEMATOLOGY METHOD 12/17/2023 5:19 AM EDT [facility] Blood Venous blood specimen / Unknown Venipuncture / Unknown 12/17/2023 5:10 AM EDT 12/17/2023 5:18 AM EDT us Tian Mattson MD LAB BLOOD ORDERABLES Final Resu lt [facility] [address] [place] [address] * APTT (12/17/2023 4:00 AM EDT) aPTT 30 25 - 35 sec 12/17/2023 4:16 AM EDT [facility] Blood Venous blood specimen / Unknown Venipuncture / Unknown 12/17/2023 4:00 AM EDT 12/17/2023 4:02 AM EDT us Tian Mattson MD LAB BLOOD ORDERABLES Final Resu lt [facility] [address] [place] [address] * (ABNORMAL) Protime-INR (12/17/2023 4:00 AM EDT) Prothrombin Time 15.3(H) 12.0 - 14.3 sec 12/17/2023 4:16 AM EDT [facility] INR 1.2(H) 0.9 - 1.1 12/17/2023 4:16 AM EDT [facility] Blood Venous blood specimen / Unknown Venipuncture / Unknown 12/17/2023 4:00 AM EDT 12/17/2023 4:02 AM EDT Narrative [facility] - 12/17/2023 4:16 AM EDT OPTIMAL INR RANGES FOR PATIENT ON ORAL ANTICOAGULANT THERAPY Prevention of venous thromboembolism ?INR 2.0 to 3.0 In patients with heart disease: Atrial fibrillation ?INR 2.0 to 3.0 Valvular heart disease ? INR 2.0 to 3.0 Tissue heart valves ?INR 2.0 to 3.0 Mechanical prosthetic valves ? INR 2.5 to 3.5 Prevention of recurrent OR ? INR 2.5 to 3.5 us Tian Mattson MD LAB BLOOD ORDERABLES Final Resu lt [facility] [address] [place] [address] * Lipid panel (12/17/2023 1:47 AM EDT) Cholesterol, Plasma 136 <200 mg/dL 12/17/2023 1:36 PM EDT [facility] Comment: Cholesterol Reference Range (age >17 years): Desirable ? <200 mg/dL Borderline ? 200 to 239 mg/dL Undesirable ? >239 mg/dL HDL 51 >=40 mg/dL 12/17/2023 1:36 PM EDT [facility] Comment: HDL Cholesterol Reference Ranges (age >17 years): Female, acceptable ?? > or = 50 mg/dL Male, acceptable ? > or = 40 mg/dL Triglycerides, Plasma 112 <150 mg/dL 12/17/2023 1:36 PM EDT [facility] Comment: Triglyceride Reference Range (age >17 years): Desirable: ??<150 mg/dL Borderline high: ??150 to 199 mg/dL High: ??200 to 499 mg/dL Very high: ??>499 mg/dL Increased risk of pancreatitis: ??>1000 mg/dL Cholesterol/HDL Ratio 3 12/17/2023 1:36 PM EDT [facility] LDL, Calculated 65 <100 mg/dL 1:36 PM EDT [facility] Comment: LDL Cholesterol Reference [...] 12 hours? Unknown 12/17/2023 1:36 PM EDT [facility] Blood Venous blood specimen / Unknown Venipuncture / Unknown 12/17/2023 1:47 AM EDT 12/17/2023 1:57 AM EDT us Tian Mattson MD LAB BLOOD ORDERABLES Final Resu lt [facility] [address] [place] [address] * (ABNORMAL) Iron & Total Iron Binding Capacity, Plasma (Includes Transferrin) (12/17/2023 1:47 AM EDT) Iron, Plasma 23(L) 50 - 170 ug/dL 12/17/2023 10:51 AM EDT [facility] Transferrin, Plasma 202 200 - 360 mg/dL 12/17/2023 10:51 AM EDT [facility] Total Iron Binding Capacity, Plasma 253 240 - 450 ug/mL 12/17/2023 10:51 AM EDT [facility] Transferrin Saturation 9(L) 14 - 50 % 12/17/2023 10:51 AM EDT [facility] Blood Venous blood specimen / Unknown Venipuncture / Unknown 12/17/2023 1:47 AM EDT 12/17/2023 1:57 AM EDT us Tian Mattson MD LAB BLOOD ORDERABLES Final Resu lt [facility] [address] [place] [address] * (ABNORMAL) Hemoglobin A1c (12/17/2023 1:47 AM EDT) Hemoglobin A1c 8.0(H) <5.7 % 12/17/2023 9:23 AM EDT [facility] Blood Venous blood specimen / Unknown Venipuncture / Unknown 12/17/2023 1:47 AM EDT 12/17/2023 1:50 AM EDT Narrative [facility] - 12/17/2023 9:23 AM EDT HA1C Interpretive Data: Diagnosis of Diabetes: Diabetic > or = 6.5% Pre-diabetic 5.7 to 6.4% Non-diabetic < or = 5.6% Glycemic Targets for Type I and Type II Diabetics: Non- Adults <7.0% Adults <6.0% Children and Adolescents <7.5% Source: ??[place] [employer]. Standards of medical care in diabetes,2017. Diabetes Care.2017:40 (suppl 1):S1-S135. HbA1c assay performed by an ion-exchange chromatography method that is certified traceable to the [facility]. Tian Mattson MD LAB BLOOD ORDERABLES Final Resu lt Performing Organization Address [facility] de Phone Number [facility] [address] [place] [address] * SARS CoV-2/COVID-19 by PCR (12/17/2023 1:47 AM EDT) Pathologist [facility] SARS CoV-2/COVID-1 9 RNA PCR Result Not Detected Not Detected 12/17/2023 2:54 AM EDT [facility] Swab Nasopharyngeal structure / Unknown Non-blood Collection / Unknown 12/17/2023 1:47 AM EDT 12/17/2023 2:10 AM EDT Narrative [facility] - 12/17/2023 2:54 AM EDT This [...] clinical signs and symptoms consistent with COVID-19. Tian Mattson MD LAB MICROBIOLOGY - GENERAL ORDE [facility] Final Result Performing Organization Address [facility] Co de Phone Number [facility] [address] [place] [address] * Multi Drug Resistance Test (12/17/2023 1:47 AM EDT) [facility] Culture No Multi Drug Resistant Organisms Isolated 12/18/2023 10:51 AM EDT [facility] Swab (Nares and Josefina Rectal) Non-blood Collection / Unknown 12/17/2023 1:47 AM EDT 12/17/2023 2:09 AM EDT us Tian Mattson MD LAB MICROBIOLOGY - GENERAL OSEAS ALLEN Final Result [facility] [address] [place] [address] * (ABNORMAL) Urinalysis, manual only (12/17/2023 1:47 AM EDT) Color, Urine Yellow LAB URINALYSIS - AUTOMATED METHOD 12/17/2023 1:53 AM EDT [facility] Clarity, Urine Clear LAB URINALYSIS - AUTOMATED METHOD 12/17/2023 1:53 AM EDT [facility] Spec Iota, Urine 1.020 1.005 - 1.030 LAB URINALYSIS - AUTOMATED METHOD 12/17/2023 1:53 AM EDT [facility] pH, Urine 5.5 4.5 to 8 LAB URINALYSIS - AUTOMATED METHOD 12/17/2023 1:53 AM EDT [facility] Protein, Urine >=300(A) Negative mg/dL LAB URINALYSIS - AUTOMATED METHOD 12/17/2023 1:53 AM EDT [facility] Glucose, Urine 500(A) Negative mg/dL LAB URINALYSIS - AUTOMATED METHOD 12/17/2023 1:53 AM EDT [facility] Ketones, Urine Negative Negative mg/dL LAB URINALYSIS - AUTOMATED METHOD 12/17/2023 1:53 AM EDT [facility] Blood, Urine Small(A) Negative LAB URINALYSIS - AUTOMATED METHOD 12/17/2023 1:53 AM EDT [facility] Bilirubin, Urine Negative Negative LAB URINALYSIS - AUTOMATED METHOD 12/17/2023 1:53 AM EDT [facility] Urobilinogen, Urine 0.2 0.2 to 1.0 mg/dL LAB URINALYSIS - AUTOMATED METHOD 12/17/2023 1:53 AM EDT [facility] Leukocytes, Urine Negative Negative LAB URINALYSIS - AUTOMATED METHOD 12/17/2023 1:53 AM EDT [facility] Nitrite, Urine Negative Negative LAB URINALYSIS - AUTOMATED METHOD 12/17/2023 1:53 AM EDT [facility] Urine Urine specimen obtained by clean catch procedure / Unknown Non-blood Collection / Unknown 12/17/2023 1:47 AM EDT 12/17/2023 1:50 AM EDT Tian Mattson MD LAB URINE ORDERABLES Final Resu lt Performing Organization Address City/[facility]/ZIP Co de Phone Number [facility] [address] [place] [address] * (ABNORMAL) N-Terminal Probnp (12/17/2023 1:47 AM EDT) N-Terminal, PROBNP, Plasma 64,759(H) 0 - 899 pg/mL 12/17/2023 2:43 AM EDT [facility] Blood Venous blood specimen / Unknown Venipuncture / Unknown 12/17/2023 1:47 AM EDT 12/17/2023 1:57 AM EDT Tian Mattson MD LAB BLOOD ORDERABLES Final Resu lt Performing Organization Address City/[facility]/ZIP Co de Phone Number [facility] [address] [place] [address] * Magnesium (12/17/2023 1:47 AM EDT) Magnesium, Plasma 2.1 1.9 - 2.4 mg/dL 12/17/2023 2:40 AM EDT [facility] Blood Venous blood specimen / Unknown Venipuncture / Unknown 12/17/2023 1:47 AM EDT 12/17/2023 1:57 AM EDT Tian Mattson MD LAB BLOOD ORDERABLES Final Resu lt [facility] [address] [place] [address] * (ABNORMAL) Comprehensive metabolic panel (12/17/2023 1:47 AM EDT) Glucose, Plasma 267(H) 74 - 99 mg/dL 12/17/2023 2:40 AM EDT [facility] BUN, Plasma 70(H) 7 - 21 mg/dL 12/17/2023 2:40 AM EDT [facility] Creatinine, Plasma 3.18(H) 0.70 - 1.20 mg/dL 12/17/2023 2:40 AM EDT [facility] BUN/Creatinine Ratio 22 12/17/2023 2:40 AM EDT [facility] Sodium, Plasma 139 136 - 145 mmol/L 12/17/2023 2:40 AM EDT [facility] Potassium, Plasma 5.1(H) 3.6 - 4.9 mmol/L 12/17/2023 2:40 AM EDT [facility] Chloride, Plasma 108(H) 97 - 107 mmol/L 12/17/2023 2:40 AM EDT [facility] CO2, Plasma 22 22 - 29 mmol/L 12/17/2023 2:40 AM EDT [facility] Anion Gap 9 6 - 16 mmol/L 12/17/2023 2:40 AM EDT [facility] Total Calcium, Plasma 8.1(L) 8.9 - 10.2 mg/dL 12/17/2023 2:40 AM EDT [facility] Total Protein 5.6(L) 6.3 - 7.9 g/dL 12/17/2023 2:40 AM EDT [facility] Albumin, Plasma 2.9(L) 3.5 - 5.2 g/dL 12/17/2023 2:40 AM EDT [facility] AST, Plasma 32 10 - 50 U/L 12/17/2023 2:40 AM EDT [facility] ALT, Plasma 11 10 - 50 U/L 12/17/2023 2:40 AM EDT [facility] Alkaline Phosphatase, Plasma 154(H) 40 - 115 U/L 12/17/2023 2:40 AM EDT [facility] Total Bilirubin, Plasma 0.4 0.2 - 1.1 mg/dL 12/17/2023 2:40 AM EDT [facility] eGFRcr 22.0 mL/min/1.7 3m*2 12/17/2023 2:40 AM EDT [facility] Comment:Reported eGFRcr in m L/min/1.73m2 is based the CKD-EPI 2020 equation that does not use a race coefficient. Blood Venous blood specimen / Unknown Venipuncture / Unknown 12/17/2023 1:47 AM EDT 12/17/2023 1:57 AM EDT us Tian Mattson MD LAB BLOOD ORDERABLES Final Resu lt [facility] [address] [place] [address] * (ABNORMAL) CBC W/O Differential (12/17/2023 1:47 AM EDT) WBC Count 5.24 3.70 - 10.30 10*3/uL LAB HEMATOLOGY METHOD 12/17/2023 1:52 AM EDT [facility] RBC Count 3.99(L) 4.60 - 6.10 10*6/uL LAB HEMATOLOGY METHOD 12/17/2023 1:52 AM EDT [facility] HGB 9.8(L) 13.7 - 17.5 g/dL LAB HEMATOLOGY METHOD 12/17/2023 1:52 AM EDT [facility] HCT 31.2(L) 40.0 - 51.0 % LAB HEMATOLOGY METHOD 12/17/2023 1:52 AM EDT [facility] Platelet Count 210 155 - 369 10*3/uL LAB HEMATOLOGY METHOD 12/17/2023 1:52 AM EDT [facility] MCV 78(L) 79 - 98 fL LAB HEMATOLOGY METHOD 12/17/2023 1:52 AM EDT [facility] MCH 24.6(L) 26.0 - 32.0 pg LAB HEMATOLOGY METHOD 12/17/2023 1:52 AM EDT [facility] MCHC 31.4 30.7 - 35.5 g/dL LAB HEMATOLOGY METHOD 12/17/2023 1:52 AM EDT [facility] RDW 17.8(H) 11.5 - 14.5 % LAB HEMATOLOGY METHOD 12/17/2023 1:52 AM EDT [facility] MPV 10.8 8.8 - 12.5 fL LAB HEMATOLOGY METHOD 12/17/2023 1:52 AM EDT [facility] nRBC 0.0 <=0.0 per 100 WBCs LAB HEMATOLOGY METHOD 12/17/2023 1:52 AM EDT [facility] Blood Venous blood specimen / Unknown Venipuncture / Unknown 12/17/2023 1:47 AM EDT 12/17/2023 1:50 AM EDT us Tian Mattson MD LAB BLOOD ORDERABLES Final Resu lt [facility] [address] [place] [address] * (ABNORMAL) Bacterial ID Gram Positive (12/17/2023 1:36 AM EDT) [facility] Staphylococcus Result Detected( A) Not Detected 12/17/2023 10:00 PM EDT [facility] Comment:Assess if contaminan t or clinically relevant pathogen. Consider clinical stability and immune status of patient. Staphylococcus epidermidis Result Detected( A) Not Detected 12/17/2023 10:00 PM EDT [facility] Comment:Assess if contaminan t or clinically relevant pathogen. Consider clinical stability and immune status of patient. MECA Result Detected( A) Not Detected 12/17/2023 10:00 PM EDT [facility] Blood Structure of antecubital vein / Unknown Venipuncture / Unknown 12/17/2023 1:36 AM EDT 12/17/2023 2:09 AM EDT Narrative [facility] - 12/17/2023 10:00 PM EDT Analytes include: Bacillus cereus group, Bacillus subtilis group, Corynebacterium, Cutibacterium acnes (P acnes), Enterococcus, Enterococcus faecalis, Enterococcus faecium, Lactobacillus, Listeria, Listeria monocytogenes, Micrococcus, Staphylococcus, Staphylococcus aureus, Staphylococcus epidermidis, Stapylcoccus lugdunesis, Streptococcus, Streptococcus agalactiae, Streptococcus anginosus group, Streptococcus pneumoniae, Streptococcus pyogenes, Yuan gram negative target, Yuan Ricco target and mecA, mecC, Dustin and vanB resistance genes. ?? NOTE: A Not Detected result for result for a resistance gene does not indicate susceptibility to antimicrobials by mechanisms other than carrying the resistance genes detected by the BCID-GP assay. . YUAN RICCO: Inclusive of Ricco albicans, Ricco glabrata, Pichia kudriavzevii (formerly Ricco krusei) and Ricco parapsilosis only. . YUAN GRAM NEGATIVE: Includes but not limited to Acinetobacter, Bacteroides, Enterobacteriaceae, Neisseria, Pseudomonas, Serratia, Stenotrophomonas maltophilia. . Reference Value: Not detected for all analytes tested. Tian Mattson MD LAB MICROBIOLOGY - [facility] Final Result [facility] [address] [place] [address] * (ABNORMAL) Blood Culture (Aerobic/Anaerobet Set) (12/17/2023 1:36 AM EDT) [facility] Culture Biotype 1 Staphylococcus coagulase negative(AA) 12/24/2023 11:44 AM EDT [facility] Comment: Isolated from aerobic culture bottle only. Isolated from one bottle only in a 24-hour period. If workup required, contact bacteriology at [phone]. This organism may be associated with a contaminated culture. The organism value for this result has been updated. These results have been appended to the previously preliminary verified report. Culture Biotype 2 Staphylococcus coagulase negative(AA) 12/24/2023 11:44 AM EDT [facility] Comment: Isolated from aerobic culture bottle only. Isolated from one bottle only in a 24-hour period. If workup required, contact bacteriology at [phone]. This organism may be associated with a contaminated culture. The organism value for this result has been updated. These results have been appended to the previously preliminary verified report. Gram Stain Gram positive cocci in clusters(AA) 12/24/2023 11:44 AM EDT [facility] Comment: Organism seen in Aerobic Blood Culture Bottle. Positivity Date and Time to Detection: 12/17/2023 at 00 Day(s) and 17 Hour(s). This is an appended report. These results have been appended to a previously preliminary verified report. Blood Structure of antecubital vein / Unknown Venipuncture / Unknown 12/17/2023 1:36 AM EDT 12/17/2023 2:[facility] AM [facility] 12/24/[facility] 11:44 AM EDT Low blood volume submitted, results may be compromised us Tian Mattson MD LAB MICROBIOLOGY - GENERAL ORDAnna ALLEN Final Result Performing Organization Address [facility] Co de Phone Number [facility] [address] [place] [address] * (ABNORMAL) POCT glucose meter (12/17/2023 1:22 AM EDT) [facility] POCT Glucose 260(H) 74 - 99 mg/dL 12/17/2023 1:24 AM EDT [facility] Comment:Accuracy of a glucos e result obtained from a capillary whole blood specimen relies upon adequate, non-compromised capillary blood flow. If the capillary glucose result is not consistent with the patient's clinical signs and symptoms, glucose testing should be repeated with either an arterial or venous sample on the glucometer or sent to the main labortory for testing. Comment 12/17/2023 1:24 AM EDT [facility] Energy Infrastructure Engineer ID Oscar White 12/17/2023 1:24 AM EDT [facility] Device ID [id number] 12/17/2023 1:24 AM EDT [facility] Specimen Type POC Capillary 12/17/2023 1:24 AM EDT [facility] Blood Capillary blood specimen / Unknown 12/17/2023 1:22 AM EDT 12/17/2023 1:24 AM EDT us Tian Mattson MD LAB POINT OF CARE TE ST DOCKED DEVICE UNSOLICITED RESULTS Final Result Performing Organization Address City/[facility] Co de Phone Number [facility] [address] [place] [address] * ECG Adult (12/17/2023 1:08 AM EDT) Pathologist [facility] EKG DIAGNOSIS CLASS Abnormal MUSE ECG Ventricular Rate 87 BPM MUSE ECG Atrial Rate 87 BPM MUSE ECG OR Interval 166 ms MUSE ECG QRSD Interval 114 ms MUSE ECG QT Interval 368 ms MUSE ECG QTC Interval 442 ms MUSE ECG P [address] 77 degrees MUSE ECG R [address] -1 degrees MUSE ECG T Wave [address] 144 degrees MUSE ECG Diagnosis Normal sinus rhythm MUSE ECG Diagnosis Incomplete left bundle branch block MUSE ECG Diagnosis Nonspecific T wave abnormality MUSE ECG Diagnosis Abnormal ECG MUSE ECG Diagnosis Confirmed by Zia Bradford ([id number]) on 12/17/2023 10:51:50 AM MUSE ECG 12/17/2023 1:08 AM EDT 12/17/2023 10:51 AM EDT us Tian Mattson MD ECG ORDERABLES Final Result Performing Organization Address City/[facility]/ZIP Co de Phone Number MUSE ECG * (ABNORMAL) Troponin T, High Sensitivity, 2 Hour, Plasma (12/16/2023 8:54 PM EDT) Troponin T, High Sensitivity, 2 Hour 94(H) <19 ng/L 12/16/2023 9:20 PM EDT [facility] Troponin Delta 4 <10 ng/L 12/16/2023 9:20 PM EDT [facility] Troponin Delta Interpretation Not Significant 12/16/2023 9:20 PM EDT [facility] Comment:Not Significant. No acute change in troponin observed between the baseline and 2 hour samples. Blood Venous blood specimen / Unknown Venipuncture / Unknown 12/16/2023 8:54 PM EDT 12/16/2023 8:57 PM EDT us Carmencita Slaughter MD LAB BLOOD ORDERABLES Final Res ult Performing Organization Address City/[facility]/ZIP Co de Phone Number [facility] [address] [place] [address] * ECG Adult (12/16/2023 8:29 PM EDT) EKG DIAGNOSIS CLASS Abnormal MUSE ECG Ventricular Rate 92 BPM MUSE ECG Atrial Rate 92 BPM MUSE ECG OR Interval 154 ms MUSE ECG QRSD Interval 116 ms MUSE ECG QT Interval 360 ms MUSE ECG QTC Interval 445 ms MUSE ECG P [address] 62 degrees MUSE ECG R [address] -4 degrees MUSE ECG T Wave [address] 111 degrees MUSE ECG Diagnosis Normal sinus rhythm MUSE ECG Diagnosis Anterior infarct MUSE ECG Diagnosis , age undetermined MUSE ECG Diagnosis Abnormal ECG MUSE ECG Diagnosis Confirmed by Darrin Mitchell ([id number]) on 12/17/2023 9:21:17 AM MUSE ECG 12/16/2023 8:29 PM EDT 12/17/2023 9:21 AM EDT Carmencita Slaughter MD ECG ORDERABLES Final Result MUSE ECG * XR Chest 1 View (12/16/2023 7:05 PM EDT) Anatomical Region Laterality Modality Chest Digital Radiogra phy Impressions 12/16/2023 7:17 PM EDT Cardiomegaly with atelectatic changes in the lung bases. Small bilateral pleural effusions. CRITICAL RESULT: ?? No. COMMUNICATION: Per this written report. Drafted by Kurt Hightower MD on 12/16/2023 7:16 PM Final report signed by Kurt Hightower MD on 12/16/2023 7:17 PM Narrative 12/16/2023 7:17 PM EDT CLINICAL INDICATION: Fluid overload TECHNIQUE: XR CHEST 1 VIEW COMPARISON: 08/15/2023 FINDINGS: Hypoventilatory changes. Mild cardiomegaly. Atelectatic changes in both lower lung zones. Small bilateral pleural effusions. No evidence of pneumothorax, or acute osseous abnormality. Procedure Note Kurt Hightower MD - 12/16/2023 CLINICAL INDICATION: Fluid overload TECHNIQUE: XR CHEST 1 VIEW COMPARISON: 08/15/2023 FINDINGS: Hypoventilatory changes. Mild cardiomegaly. Atelectatic changes in bothlower lung zones. Small bilateral pleural effusions. No evidence ofpneumothorax, or acute osseous abnormality. IMPRESSION: Cardiomegaly with atelectatic changes in the lung bases. Small bilateralpleural effusions. CRITICAL RESULT: No. COMMUNICATION: Per this written report. Drafted by Kurt Hightower MD on 12/16/2023 7:16 PM Final report signed by Kurt Hightower MD on 12/16/2023 7:17 PM Carmencita Slaughter MD IMG XR PROCEDURES Final Result * Free T4, Plasma (12/16/2023 6:42 PM EDT) Free T4, Plasma 1.6 0.8 - 1.7 ng/dL 12/16/2023 8:51 PM EDT [facility] Blood Venous blood specimen / Unknown Venipuncture / Unknown 12/16/2023 6:42 PM EDT 12/16/2023 6:52 PM EDT us Carmencita Slaughter MD LAB BLOOD ORDERABLES Final Res ult Performing Organization Address City/[facility]/ZIP Co de Phone Number [facility] [address] [place] [address] * Thyroid Stimulating Hormone, Plasma (12/16/2023 6:42 PM EDT) Pathologist [facility] Thyroid Stimulating Hormone, Plasma 2.51 0.40 - 4.20 uIU/mL 12/16/2023 7:38 PM EDT [facility] Blood Venous blood specimen / Unknown Venipuncture / Unknown 12/16/2023 6:42 PM EDT 12/16/2023 6:52 PM EDT us Carmencita Slaughter MD LAB BLOOD ORDERABLES Final Res ult Performing Organization Address [facility] [place] [address] * (ABNORMAL) BNP (12/16/2023 6:42 PM EDT) N-Terminal, PROBNP, Plasma 58,349(H) 0 - 899 pg/mL 12/16/2023 8:28 PM EDT [facility] Blood Venous blood specimen / Unknown Venipuncture / Unknown 12/16/2023 6:42 PM EDT 12/16/2023 6:52 PM EDT us Carmencita Slaughter MD LAB BLOOD ORDERABLES Final Res ult Performing Organization Address City/[facility]/[place] [address] * (ABNORMAL) Troponin now and 120 min (12/16/2023 6:42 PM EDT) Pathologist [facility] Troponin T, High Sensitivity, 0 Hour 98(H) <19 ng/L 12/16/2023 7:38 PM EDT [facility] Blood Venous blood specimen / Unknown Venipuncture / Unknown 12/16/2023 6:42 PM EDT 12/16/2023 6:52 PM EDT us Carmencita Slaughter MD LAB BLOOD ORDERABLES Final Res ult [facility] [address] [place] [address] * (ABNORMAL) CBC w/diff (12/16/2023 6:42 PM EDT) [facility] WBC Count 6.37 3.70 - 10.30 10*3/uL LAB HEMATOLOGY METHOD 12/16/2023 6:55 PM EDT [facility] RBC Count 4.14(L) 4.60 - 6.10 10*6/uL LAB HEMATOLOGY METHOD 12/16/2023 6:55 PM EDT [facility] HGB 10.1(L) 13.7 - 17.5 g/dL LAB HEMATOLOGY METHOD 12/16/2023 6:55 PM EDT [facility] HCT 33.1(L) 40.0 - 51.0 % LAB HEMATOLOGY METHOD 12/16/2023 6:55 PM EDT [facility] Platelet Count 202 155 - 369 10*3/uL LAB HEMATOLOGY METHOD 12/16/2023 6:55 PM EDT [facility] MCV 80 79 - 98 fL LAB HEMATOLOGY METHOD 12/16/2023 6:55 PM EDT [facility] MCH 24.4(L) 26.0 - 32.0 pg LAB HEMATOLOGY METHOD 12/16/2023 6:55 PM EDT [facility] MCHC 30.5(L) 30.7 - 35.5 g/dL LAB HEMATOLOGY METHOD 12/16/2023 6:55 PM EDT [facility] RDW 17.6(H) 11.5 - 14.5 % LAB HEMATOLOGY METHOD 12/16/2023 6:55 PM EDT [facility] MPV 11.1 8.8 - 12.5 fL LAB HEMATOLOGY METHOD 12/16/2023 6:55 PM EDT [facility] nRBC 0.0 <=0.0 per 100 WBCs LAB HEMATOLOGY METHOD 12/16/2023 6:55 PM EDT [facility] Differential Type Automated LAB HEMATOLOGY METHOD 12/16/2023 6:55 PM EDT [facility] Neutrophils % 76.0 % LAB HEMATOLOGY METHOD 12/16/2023 6:55 PM EDT [facility] Lymphocytes % 10.0 % LAB HEMATOLOGY METHOD 12/16/2023 6:55 PM EDT [facility] Monocytes % 12.0 % LAB HEMATOLOGY METHOD 12/16/2023 6:55 PM EDT [facility] Eosinophils % 2.0 % LAB HEMATOLOGY METHOD 12/16/2023 6:55 PM EDT [facility] Basophils % 0.0 % LAB HEMATOLOGY METHOD 12/16/2023 6:55 PM EDT [facility] Immature Granulocytes % 0.0 % LAB HEMATOLOGY METHOD 12/16/2023 6:55 PM EDT [facility] Neutrophils Absolute 4.81 1.60 - 6.10 10*3/uL LAB HEMATOLOGY METHOD 12/16/2023 6:55 PM EDT [facility] Lymphocytes Absolute 0.65(L) 1.20 - 3.90 10*3/uL LAB HEMATOLOGY METHOD 12/16/2023 6:55 PM EDT [facility] Monocytes Absolute 0.79 0.30 - 0.90 10*3/uL LAB HEMATOLOGY METHOD 12/16/2023 6:55 PM EDT [facility] Eosinophils Absolute 0.10 0.00 - 0.50 10*3/uL LAB HEMATOLOGY METHOD 12/16/2023 6:55 PM EDT [facility] Basophils Absolute 0.00 0.00 - 0.10 10*3/uL LAB HEMATOLOGY METHOD 12/16/2023 6:55 PM EDT [facility] Immature Granulocytes Absolute 0.02 0.00 - 0.06 10*3/uL LAB HEMATOLOGY METHOD 12/16/2023 6:55 PM EDT [facility] Blood Venous blood specimen / Unknown Venipuncture / Unknown 12/16/2023 6:42 PM EDT 12/16/2023 6:53 PM EDT Narrative [facility] - 12/16/2023 6:55 PM EDT Therapeutic decision making should be based on absolute values, rather than percentages. us Carmencita Slaughter MD LAB BLOOD ORDERABLES Final Res ult [facility] [address] [place] [address] * (ABNORMAL) CMP (12/16/2023 6:42 PM EDT) Glucose, Plasma 290(H) 74 - 99 mg/dL 12/16/2023 7:38 PM EDT [facility] BUN, Plasma 74(H) 7 - 21 mg/dL 12/16/2023 7:38 PM EDT [facility] Creatinine, Plasma 3.32(H) 0.70 - 1.20 mg/dL 12/16/2023 7:38 PM EDT [facility] BUN/Creatinine Ratio 22 12/16/2023 7:38 PM EDT [facility] Sodium, Plasma 135(L) 136 - 145 mmol/L 12/16/2023 7:38 PM EDT [facility] Potassium, Plasma 5.4(H) 3.6 - 4.9 mmol/L 12/16/2023 7:38 PM EDT [facility] Chloride, Plasma 104 97 - 107 mmol/L 12/16/2023 7:38 PM EDT [facility] CO2, Plasma 20(L) 22 - 29 mmol/L 12/16/2023 7:38 PM EDT [facility] Anion Gap 11 6 - 16 mmol/L 12/16/2023 7:38 PM EDT [facility] Total Calcium, Plasma 8.0(L) 8.9 - 10.2 mg/dL 12/16/2023 7:38 PM EDT [facility] Total Protein 6.0(L) 6.3 - 7.9 g/dL 12/16/2023 7:38 PM EDT [facility] Albumin, Plasma 3.0(L) 3.5 - 5.2 g/dL 12/16/2023 7:38 PM EDT [facility] AST, Plasma 39 10 - 50 U/L 12/16/2023 7:38 PM EDT [facility] Comment:Hemolyzed, result ma y be falsely increased. ALT, Plasma 9(L) 10 - 50 U/L 12/16/2023 7:38 PM EDT [facility] Alkaline Phosphatase, Plasma 172(H) 40 - 115 U/L 12/16/2023 7:38 PM EDT [facility] Total Bilirubin, Plasma 0.4 0.2 - 1.1 mg/dL 12/16/2023 7:38 PM EDT [facility] eGFRcr 20.9 mL/min/1.7 3m*2 12/16/2023 7:38 PM EDT [facility] Comment:Reported eGFRcr in m L/min/1.73m2 is based the CKD-EPI 2020 equation that does not use a race coefficient. Blood Venous blood specimen / Unknown Venipuncture / Unknown 12/16/2023 6:42 PM EDT 12/16/2023 6:52 PM EDT us Carmencita Slaughter MD LAB BLOOD ORDERABLES Final Res ult [facility] [address] [place] [address] * (ABNORMAL) POCT glucose meter (12/16/2023 6:00 PM EDT) POCT Glucose 271(H) 74 - 99 mg/dL 12/16/2023 6:03 PM EDT [facility] Comment:Accuracy of a glucos e result obtained from a capillary whole blood specimen relies upon adequate, non-compromised capillary blood flow. If the capillary glucose result is not consistent with the patient's clinical signs and symptoms, glucose testing should be repeated with either an arterial or venous sample on the glucometer or sent to the main labortory for testing. Comment 12/16/2023 6:03 PM EDT [facility] Energy Infrastructure Engineer ID Cierra Jolley 12/16/2023 6:03 PM EDT [facility] Device ID [id number] 12/16/2023 6:03 PM EDT [facility] Specimen Type POC Capillary 12/16/2023 6:03 PM EDT [facility] Blood Capillary blood specimen / Unknown 12/16/2023 6:00 PM EDT 12/16/2023 6:03 PM EDT us Generic Provider Poct LAB POINT OF CARE TEST DOCKED DEVICE UNSOLICITED RESULTS Final Result Performing Organization Address City/State/[facility] Co de Phone Number [facility] [address] [place] [phone] * [facility] ED POCUS PROCDOC (12/16/2023 5:49 PM EDT) Narrative Carmencita Slaughter MD - 12/16/2023 5:49 PM EDT Parag Kirkpatrick, DO ? 12/28/2023 ??1:13 PM POCUS - ED USE ONLY Performed by: Parag Kirkpatrick, DO Authorized by: Jakob Phipps MD ?? [...] Phipps MD IN CLINIC/BEDSIDE ORDERABLES Final Result documented in this encounter Visit Diagnoses Diagnosis Acute decompensated heart failure (CMS/HCC)- Primary Acute on chronic systolic congestive heart failure (CMS/HCC) Acute decompensated heart failure (CMS/HCC) documented in this encounter Admitting Diagnoses Diagnosis Acute decompensated heart failure (CMS/HCC) documented in this encounter Administered Medications Inactive Administered Medications - up to 3 most recent administrations Medication Order MAR Action Action Date Dose Rate Site acetaminophen (Tylenol) tablet 650 mg 650 mg, Oral, Every 8 hours PRN, Starting on Wed12/17/23 at 1412, Until 12/25/23 at 1606, Routine, mild pain, moderate pain Given 12/22/2023 8:00 PM EDT 650 mg Given 12/21/2023 8:27 PM EDT 650 mg Given 12/20/2023 9:35 PM EDT 650 mg albuterol 108 (90 Base) MCG/ACT inhaler 2 puff 2 puff, Inhalation, Every 6 hours PRN, Starting on Wed12/17/23 at 0052, Until 12/25/23 at 1606, Routine, wheezing, shortness of breath aspirin chewable tablet 81 mg 81 mg, Oral, Daily, First dose on Wed12/17/23 at 0900, Until Discontinued, Routine Given 12/25/2023 9:18 AM EDT 81 mg Given 12/24/2023 8:40 AM EDT 81 mg Given 12/23/2023 8:42 AM EDT 81 mg atorvastatin (Lipitor) tablet 80 mg 80 mg, Oral, Nightly, First dose on Wed12/17/23 at 0055, Until Discontinued, Routine Given 12/24/2023 8:04 PM EDT 80 mg Given 12/23/2023 8:32 PM EDT 80 mg Given 12/22/2023 8:00 PM EDT 80 mg bumetanide (Bumex) 25 mg, empty bag 1 each 100 mL (0.25 mg/mL) infusion (undiluted in viaflex bag) 1 mg/hr (4 mL/hr), 250 mcg/mL, Intravenous, Continuous, Starting on Wed12/17/23 at 0830, Until Wed12/18/23 at 1204, Routine New Bag 12/18/2023 5:33 AM EDT 1 mg/hr 4 mL/h r New Bag 12/17/2023 9:52 AM EDT 1 mg/hr 4 mL/hr bumetanide (Bumex) 4 mg in sodium chloride 0.9 % 50 mL IVPB 4 mg, Intravenous, Once, 1 dose, On 12/18/23 at 1300, at 284 mL/hr, Routine New Bag 12/18/2023 12:56 PM EDT 4 mg 284 mL/hr bumetanide (Bumex) 4 mg in sodium chloride 0.9 % 50 mL IVPB 4 mg, Intravenous, Once, 1 dose, On Wed12/19/23 at 0630, at 284 mL/hr, Routine New Bag 12/19/2023 6:16 AM EDT 4 mg 284 mL/hr bumetanide (Bumex) injection 2 mg 2 mg, Intravenous, Once, 1 dose, On Wed12/17/23 at 0325, Routine Given 12/17/2023 3:56 AM EDT 2 mg bumetanide (Bumex) injection 2 mg 2 mg, Intravenous, Once, 1 dose, On Wed12/19/23 at 1500, Routine Given 12/19/2023 3:46 PM EDT 2 mg bumetanide (Bumex) injection 2 mg 2 mg, Intravenous, Once, 1 dose, On Wed12/21/23 at 1400, Routine Given 12/21/2023 3:25 PM EDT 2 mg bumetanide (Bumex) injection 2 mg 2 mg, Intravenous, 2 times daily, First dose on Wed12/22/23 at 0900, Until Discontinued, Routine Given 12/23/2023 8:42 AM EDT 2 mg Given 12/22/2023 3:27 PM EDT 2 mg Given 12/22/2023 9:52 AM EDT 2 mg bumetanide (Bumex) tablet 1 mg 1 mg, Oral, 2 times daily (0900 & 1500), First dose on Wed12/20/23 at 0900, Until Discontinued, Routine Given 12/20/2023 2:37 PM EDT 1 mg Given 12/20/2023 10:06 AM EDT 1 mg bumetanide (Bumex) tablet 2 mg 2 mg, Oral, Once, 1 dose, On Wed12/20/23 at 1530, Routine Given 12/20/2023 4:17 PM EDT 2 mg bumetanide (Bumex) tablet 2 mg 2 mg, Oral, Daily, First dose on Wed12/21/23 at 0900, Until Discontinued, Routine Given 12/21/2023 8:38 AM EDT 2 mg bumetanide (Bumex) tablet 2 mg 2 mg, Oral, Daily, First dose on Wed12/23/23 at 1500, Until Discontinued, Routine Given 12/25/2023 9:18 AM EDT 2 mg Given 12/24/2023 8:39 AM EDT 2 mg Given 12/23/2023 3:10 PM EDT 2 mg bumetanide (Bumex) tablet 2 mg 2 mg, Oral, Once, 1 dose, On Wed12/24/23 at 1500, Routine Given 12/24/2023 4:00 PM EDT 2 mg carboxymethylcellulose PF (Refresh Plus) 0.5 % ophthalmic solution 1 drop 1 drop, Both Eyes, 3 times daily PRN, Starting on Wed12/20/23 at 1118, Until Wed12/25/23 at 1606, Routine, dry eyes Given 12/24/2023 7:58 PM EDT 1 drop Given 12/22/2023 8:01 PM EDT 1 drop Given 12/21/2023 8:28 PM EDT 1 drop clopidogrel (Plavix) tablet 75 mg 75 mg, Oral, Daily, First dose on Wed12/20/23 at 1530, Until Discontinued, Routine Given 12/25/2023 9:19 AM EDT 75 mg Given 12/24/2023 8:39 AM EDT 75 mg Given 12/23/2023 8:42 AM EDT 75 mg dapagliflozin (Farxiga) tablet 10 mg 10 mg, Oral, Daily, First dose on Wed12/21/23 at 0900, Until Discontinued, RoutineIndications:Left Systolic Heart Failure Given 12/25/2023 9: 19 AM EDT 10 mg Given 12/24/2023 8:39 AM EDT 10 mg Given 12/23/2023 8:42 AM EDT 10 mg dextrose 10 % (D10W) bolus 125 mL 125 mL, Intravenous, Every 15 min PRN, Starting on Wed12/17/23 at 0050, Until Wed12/25/23 at 1606, Administer over 15 Minutes, Routine, low blood sugar per Hypoglycemia Prevention and Treatment protocol. empagliflozin (Jardiance) tablet 10 mg 10 mg, Oral, Daily, First dose on Wed12/20/23 at 1030, Until Discontinued, RoutineIndications:Chronic Renal Failure,Left Systolic Heart Failure Given 12/20/2023 10:34 AM EDT 10 mg gabapentin (Neurontin) capsule 300 mg 300 mg, Oral, 3 times daily, First dose (after last modification) on Wed12/20/23 at 1030, Until Discontinued, Routine Given 12/25/2023 9:19 AM EDT 300 mg Given 12/24/2023 8:04 PM EDT 300 mg Given 12/24/2023 4:01 PM EDT 300 mg gabapentin (Neurontin) capsule 400 mg 400 mg, Oral, 3 times daily, First dose on Wed12/17/23 at 0900, Until Discontinued, Routine Given 12/19/2023 9:42 PM EDT 400 mg Given 12/19/2023 3:46 PM EDT 400 mg Given 12/19/2023 8:25 AM EDT 400 mg gi cocktail oral solution 30 mL 30 mL, Oral, Once, 1 dose, On 12/18/23 at 1500, Routine Given 12/18/2023 3:07 PM EDT 30 mL glucagon (human recombinant) injection 1 mg 1 mg, Intramuscular, Every 15 min PRN, Starting on Wed12/17/23 at 0050, Until 12/25/23 at 1606, Routine, low blood sugar per Hypoglycemia Prevention and Treatment protocol glucose (Glutose) 40 % oral gel 15 grams of glucose 15 grams of glucose, Sublingual, Every 15 min PRN, Starting on Wed12/17/23 at 0050, Until 12/25/23 at 1606, Routine, low blood sugar, per Hypoglycemia Prevention and Treatment protocol guaiFENesin (Mucinex) 12 hr tablet 600 mg 600 mg, Oral, 2 times daily PRN, Starting on Wed12/17/23 at 0552, Until 12/25/23 at 1606, Routine, cough Given 12/24/2023 7:59 PM EDT 600 mg Given 12/22/2023 8:01 PM EDT 600 mg Given 12/21/2023 8:27 PM EDT 600 mg heparin (porcine) injection 5,000 Units 5,000 Units, Subcutaneous, Every 8 hours scheduled, First dose on Wed12/17/23 at 0615, Until Discontinued, Routine Given 12/24/2023 6:31 AM EDT 5,000 Units Left Lower Abdomen Given 12/23/2023 10:59 PM EDT 5,000 Units Left Lower Abdomen Given 12/23/2023 3:10 PM EDT 5,000 Units L eft Lower Abdomen hydrALAZINE (Apresoline) tablet 100 mg 100 mg, Oral, Every 8 hours scheduled, First dose (after last modification) on 12/19/23 at 1400, Until Discontinued, Routine Self Administered Via Pump 12/23/2023 5:06 AM EDT 100 mg Given 12/22/2023 10:12 PM EDT 100 mg Given 12/22/2023 1:53 PM EDT 100 mg hydrALAZINE (Apresoline) tablet 50 mg 50 mg, Oral, Every 8 hours scheduled, First dose on Wed12/17/23 at 1230, Until Discontinued, Routine Given 12/18/2023 5:32 AM EDT 50 mg Given 12/17/2023 9:17 PM EDT 50 mg Given 12/17/2023 12:29 PM EDT 50 mg hydrALAZINE (Apresoline) tablet 75 mg 75 mg, Oral, Every 8 hours scheduled, First dose (after last modification) on 12/18/23 at 1400, Until Discontinued, Routine Given 12/19/2023 6:16 AM EDT 75 mg Given 12/18/2023 9:20 PM EDT 75 mg Given 12/18/2023 1:56 PM EDT 75 mg insulin glargine-yfgn 100 UNIT/ML injection 10 Units 10 Units, Subcutaneous, Nightly, First dose (after last modification) on Wed12/17/23 at 2100, Until Discontinued, Routine Given 12/18/2023 9:21 PM EDT 10 Units Left Upper Arm (Back ) Given 12/17/2023 9:18 PM EDT 10 Units Le ft Upper Arm (Back) insulin glargine-yfgn 100 UNIT/ML injection 12 Units 12 Units, Subcutaneous, Nightly, First dose (after last modification) on 12/19/23 at 2100, Until Discontinued, Routine Given 12/24/2023 8:04 PM EDT 12 Units Left Upper Arm (Back ) Given 12/23/2023 8:32 PM EDT 12 Units Le ft Lower Abdomen Given 12/22/2023 8:00 PM EDT 12 Units Ri ght Upper Arm (Back) insulin glargine-yfgn 100 UNIT/ML injection 5 Units 5 Units, Subcutaneous, Nightly, First dose on Wed12/17/23 at 0055, Until Discontinued, Routine Given 12/17/2023 1:37 AM EDT 5 Units Left Upper Arm (Back ) insulin lispro (Admelog) 100 units/mL injection - Correction - Standard Dose 0-5 Units, Subcutaneous, 3 times daily with meals, First dose on Wed12/17/23 at 0830, Until Discontinued, Routine Given 12/24/2023 1:16 PM EDT 1 Units Left Lower Abdomen Given 12/23/2023 6:02 PM EDT 1 Units Le ft Upper Arm (Back) Given 12/22/2023 6:08 PM EDT 1 Units Le ft Upper Arm (Back) insulin lispro (Admelog) injection - Correction - Nighttime Dose 0-3 Units, Subcutaneous, 2 times nightly (2100 & 0300), First dose on Wed12/17/23 at 0300, Until Discontinued, Routine ipratropium-albuterol (Duo-Neb) 0.5-2.5 mg/3 mL nebulizer solution 3 mL 3 mL, Nebulization, Every 6 hours RT, First dose on Wed12/17/23 at 0900, Until Discontinued, Routine Given 12/18/2023 2:10 PM EDT 3 mL Given 12/18/2023 10:25 AM EDT 3 mL Given 12/18/2023 2:25 AM EDT 3 mL ipratropium-albuterol (Duo-Neb) 0.5-2.5 mg/3 mL nebulizer solution 3 mL 3 mL, Nebulization, Every 6 hours PRN, Starting on 12/19/23 at 0700, Until 12/25/23 at 1606, Routine, wheezing iron sucrose (Venofer) injection 200 mg 200 mg, Intravenous, Daily, Administer undiluted by IV push over 2 to 5 minutes, First dose on Wed12/17/23 at 1530, For 5 doses Given 12/21/2023 8:39 AM EDT 200 mg Given 12/20/2023 10:07 AM EDT 200 mg Given 12/19/2023 8:26 AM EDT 200 mg isosorbide dinitrate (Isordil) tablet 20 mg 20 mg, Oral, Every 8 hours scheduled, First dose on Wed12/17/23 at 1230, Until Discontinued, Routine Given 12/19/2023 6:16 AM EDT 20 mg Given 12/18/2023 9:21 PM EDT 20 mg Given 12/18/2023 1:56 PM EDT 20 mg isosorbide dinitrate (Isordil) tablet 40 mg 40 mg, Oral, Every 8 hours scheduled, First dose (after last modification) on 12/19/23 at 1400, Until Discontinued, Routine Self Administered Via Pump 12/23/2023 5:06 AM EDT 40 mg Given 12/22/2023 10:11 PM EDT 40 mg Given 12/22/2023 1:53 PM EDT 40 mg lidocaine (Lidoderm) 5 % patch 1 patch 1 patch, Apply externally, Every 24 hours, First dose on 12/18/23 at 0500, Until Discontinued, Administer over 12 Hours, Routine Medication Applied 12/21/2023 5:11 AM EDT 1 patch Other Medication Applied 12/20/2023 5:35 AM EDT 1 patch Other Medication Applied 12/18/2023 5:32 AM EDT 1 patch Other lidocaine (Lidoderm) 5 % patch 1 patch 1 patch, Apply externally, Every 24 hours, First dose on 12/18/23 at 1430, Until Discontinued, Administer over 12 Hours, Routine Medication Applied 12/20/2023 1:45 PM EDT 1 patch Other Medication Applied 12/19/2023 2:48 PM EDT 1 patch Other Medication Applied 12/18/2023 2:17 PM EDT 1 patch Chest losartan (Cozaar) tablet 25 mg 25 mg, Oral, Daily, First dose on Wed12/22/23 at 1200, Until Discontinued, Routine Given 12/25/2023 9:19 AM EDT 25 mg Given 12/24/2023 8:39 AM EDT 25 mg Given 12/23/2023 8:42 AM EDT 25 mg magnesium sulfate IVPB 2 g 2 g, Intravenous, Once, 1 dose, On 12/18/23 at 0630, Routine New Bag 12/18/2023 6:47 AM EDT 2 g 25 mL/hr metoprolol succinate XL (Toprol-XL) 24 hr tablet 25 mg 25 mg, Oral, Daily, First dose (after last modification) on 12/20/23 at 1030, Until Discontinued, Routine Given 12/21/2023 8:38 AM EDT 25 mg Given 12/20/2023 10:34 AM EDT 25 mg metoprolol succinate XL (Toprol-XL) 24 hr tablet 50 mg 50 mg, Oral, Daily, First dose (after last modification) on Wed12/22/23 at 0900, Until Discontinued, Routine Given 12/25/2023 9:19 AM EDT 50 mg Given 12/24/2023 8:39 AM EDT 50 mg Given 12/23/2023 8:42 AM EDT 50 mg mineral oil-hydrophilic petrolatum (Aquaphor) ointment Topical, 2 times daily, First dose on Wed12/21/23 at 2100, Until Discontinued, Routine Given 12/24/2023 8:03 PM EDT Given 12/24/2023 8:47 AM EDT Given 12/23/2023 8:32 PM EDT 1 Application polyethylene glycol (Miralax) packet 17 g 17 g, Oral, Daily, First dose on Wed12/21/23 at 1815, Until Discontinued, Routine Given 12/21/2023 6:13 PM EDT 17 g polyethylene glycol (Miralax) packet 17 g 17 g, Oral, Daily PRN, Starting on Wed12/23/23 at 1745, Until 12/25/23 at 1606, Routine, constipation potassium chloride CR (Klor-Con) ER tablet 40 mEq 40 mEq, Oral, Once, 1 dose, On Wed12/22/23 at 0900, Routine Given 12/22/2023 9:53 AM EDT 40 mEq potassium chloride CR (Klor-Con) ER tablet 40 mEq 40 mEq, Oral, Once, 1 dose, On Wed12/24/23 at 0700, Routine Given 12/24/2023 8:46 AM EDT 40 mEq Povidone-Iodine 5 % swab solution 1 Swab Nasal, Daily, 5 doses, First dose on Wed12/17/23 at 0900, Last dose on Wed12/21/23 at 0900, Routine Given 12/21/2023 8:39 AM EDT 1 Swab Given 12/20/2023 10:34 AM EDT 1 Swab Given 12/19/2023 8:26 AM EDT 1 Swab senna (Senokot) tablet 17.2 mg 17.2 mg (2 tablet), Oral, Nightly, First dose on Wed12/21/23 at 2100, Until Discontinued, Routine Given 12/21/2023 8:27 PM EDT 17.2 mg senna (Senokot) tablet 17.2 mg 17.2 mg (2 tablet), Oral, Nightly PRN, Starting on Chelita 12/23/23 at 1745, Until 12/25/23 at 1606, Routine, constipation sodium chloride 0.9 % flush 10 mL 10 mL, Intravenous, Every 12 hours, First dose on Wed12/17/23 at 0050, Until Discontinued, Routine Given 12/25/2023 12:54 AM EDT 10 mL Given 12/24/2023 4:00 PM EDT 10 mL Given 12/23/2023 11:55 PM EDT 10 mL sodium chloride 0.9 % flush 10 mL 10 mL, Intravenous, As needed, Starting on Wed12/17/23 at 0047, Until 12/25/23 at 1606, Routine, line care tamsulosin (Flomax) 24 hr capsule 0.4 mg 0.4 mg, Oral, Daily with dinner, First dose on Wed12/21/23 at 1800, Until Discontinued, Routine Given 12/24/2023 6:22 PM EDT 0.4 mg Given 12/23/2023 6:03 PM EDT 0.4 mg Given 12/22/2023 6:08 PM EDT 0.4 mg vancomycin IVPB 1750 mg in 250 mL NS IVPB 1,750 mg (rounded from 1,756 mg = 20 mg/kg ? 87.8 kg Adjusted weight), Intravenous, Once, 1 dose, On Wed12/17/23 at 2115, at 167.4 mL/hr, STAT New Bag 12/17/2023 9:17 PM EDT 1,750 mg 167.4 mL/hr documented in this encounter Active and Recently Administered Medications Times are shown in EDT. Scheduled Medication Order 12/23/2023 12/24/2023 12/25/2023 aspirin chewable tablet 81 mg 81 mg, Oral, Daily, First dose on Wed12/17/23 at 0900, Until Discontinued, Routine 0842 (Given - Provider: Caternia Bradley RN) 0840 (Given - Provider: Tamara Horne RN) 0918 (Given - Provider: Tamara Horne RN) atorvastatin (Lipitor) tablet 80 mg 80 mg, Oral, Nightly, First dose on Wed12/17/23 at 0055, Until Discontinued, Routine 2031 (Given - Provider: Obi Hutton RN) 2003 (Given - Provider: Lai Billingsley RN) bumetanide (Bumex) injection 2 mg (CANCELED) 2 mg, Intravenous, 2 times daily, First dose on Wed12/22/23 at 0900, Until Discontinued, Routine 0842 (Given - Provider: Caterina Bradley RN) bumetanide (Bumex) tablet 2 mg 2 mg, Oral, Daily, First dose on Wed12/23/23 at 1500, Until Discontinued, Routine 1510 (Given - Provider: Caterina Bradley RN) 0839 (Given - Provider: Tamara Horne RN) 0918 (Given - Provider: Tamara Horne RN) bumetanide (Bumex) tablet 2 mg (COMPLETED) 2 mg, Oral, Once, 1 dose, On Wed12/24/23 at 1500, Routine 1600 (Given - Provider: Tamara Horne RN) clopidogrel (Plavix) tablet 75 mg 75 mg, Oral, Daily, First dose on Wed12/20/23 at 1530, Until Discontinued, Routine 0842 (Given - Provider: Caterina Bradley RN) 0839 (Given - Provider: Tamara Horne RN) 0919 (Given - Provider: Tamara Horne RN) dapagliflozin (Farxiga) tablet 10 mg 10 mg, Oral, Daily, First dose on Wed12/21/23 at 0900, Until Discontinued, Routine 0842 (Given - Provider: Caterina Bradley RN) 0839 (Given - Provider: Tamara Horne RN) 0919 (Given - Provider: Tamara Horne RN) gabapentin (Neurontin) capsule 300 mg 300 mg, Oral, 3 times daily, First dose (after last modification) on Wed12/20/23 at 1030, Until Discontinued, Routine 0843 (Given - Provider: Caterina Bradley RN)1510 (Given - Provider: Caterina Bradley RN)2031 (Given - Provider: Obi Hutton RN) 0839 (Given - Provider: Tamara Horne RN)1601 (Given - Provider: Tamara Horne, JAME)2003 (Given - Provider: Lai Billingsley RN) 0919 (Given - Provider: Tamara Horne RN)1600 (Canceled Entry - Provider: Automatic Discharge Provider - Comment: Automatically canceled at discontinue of medication order) heparin (porcine) injection 5,000 Units 5,000 Units, Subcutaneous, Every 8 hours scheduled, First dose on Wed12/17/23 at 0615, Until Discontinued, Routine 0506 (Self Administered Via Pump - Provider: Lai Billingsley RN)1510 (Given - Provider: Caterina Bradley, JAME)2259 (Given - Provider: Obi Hutton RN) 0631 (Given - Provider: Obi Hutton RN)1437 (Not Given - Provider: Tamara Horne RN - Reason: Patient/family refused - Comment: eduation provided)2102 (Not Given - Provider: Lai Billingsley RN - Reason: Patient/family refused) 0502 (Not Given - Provider: Lai Billingsley RN - Reason: Patient/family refused)1400 (Canceled Entry - Provider: Automatic Discharge Provider - Comment: Automatically canceled at discontinue of medication order) hydrALAZINE (Apresoline) tablet 100 mg (CANCELED) 100 mg, Oral, Every 8 hours scheduled, First dose (after last modification) on Wed12/19/23 at 1400, Until Discontinued, Routine 0506 (Self Administered Via Pump - Provider: Lai Billingsley RN) insulin glargine-yfgn 100 UNIT/ML injection 12 Units 12 Units, Subcutaneous, Nightly, First dose (after last modification) on Wed12/19/23 at 2100, Until Discontinued, Routine 203 (Given - Provider: Obi Hutton RN) 2003 (Given - Provider: Lai Billingsley RN) insulin lispro (Admelog) 100 units/mL injection - Correction - Standard Dose 0-5 Units, Subcutaneous, 3 times daily with meals, First dose on Wed12/17/23 at 0830, Until Discontinued, Routine 0849 (Not Given - Provider: Caterina Bradley RN - Reason: Order parameters not met)1253 (Not Given - Provider: Caterina Bradley RN - Reason: Order parameters not met)1802 (Given - Provider: Caterina Bradley RN) 0851 (Not Given - Provider: Tamara Horne RN - Reason: Order parameters not met)1316 (Given - Provider: Tamara Horne RN)1813 (Not Given - Provider: Tamara Horne RN - Reason: Order parameters not met) 0912 (Not Given - Provider: Tamara Horne RN - Reason: Order parameters not met)1230 (Canceled Entry - Provider: Automatic Discharge Provider - Comment: Automatically canceled at discontinue of medication order) insulin lispro (Admelog) injection - Correction - Nighttime Dose 0-3 Units, Subcutaneous, 2 times nightly (2100 & 0300), First dose on Wed12/17/23 at 0300, Until Discontinued, Routine 0259 (Not Given - Provider: Lai Billingsley RN - Reason: Order parameters not met)2003 (Not Given - Provider: Obi Hutton RN - Reason: Order parameters not met) 206 (Not Given - Provider: Obi Hutton RN - Reason: Order parameters not met)2004 (Not Given - Provider: Lai Billingsley RN - Reason: Order parameters not met) 020 (Not Given - Provider: Lai Billingsley RN - Reason: Order parameters not met) isosorbide dinitrate (Isordil) tablet 40 mg (CANCELED) 40 mg, Oral, Every 8 hours scheduled, First dose (after last modification) on Wed12/19/23 at 1400, Until Discontinued, Routine 0506 (Self Administered Via Pump - Provider: Lai Billingsley RN) lidocaine (Lidoderm) 5 % patch 1 patch 1 patch, Apply externally, Every 24 hours, First dose on 12/18/23 at 0500, Until Discontinued, Administer over 12 Hours, Routine 0508 (Not Given - Provider: Lai Billingsely RN - Reason: Patient/family refused) 0431 (Not Given - Provider: Obi Hutton RN - Reason: Patient/family refused) 0401 (Not Given - Provider: Lai Billingsley RN - Reason: Patient/family refused) lidocaine (Lidoderm) 5 % patch 1 patch 1 patch, Apply externally, Every 24 hours, First dose on 12/18/23 at 1430, Until Discontinued, Administer over 12 Hours, Routine 1512 (Not Given - Provider: Caterina Bradley RN - Reason: Patient/family refused) 1438 (Not Given - Provider: Tamara Horne RN - Reason: Patient/family refused) 1430 (Canceled Entry - Provider: Automatic Discharge Provider - Comment: Automatically canceled at discontinue of medication order) losartan (Cozaar) tablet 25 mg 25 mg, Oral, Daily, First dose on Wed12/22/23 at 1200, Until Discontinued, Routine 0842 (Given - Provider: Caterina Bradley RN) 0839 (Given - Provider: Tamara Horne RN) 0919 (Given - Provider: Tamara Horne RN) metoprolol succinate XL (Toprol-XL) 24 hr tablet 50 mg 50 mg, Oral, Daily, First dose (after last modification) on Wed12/22/23 at 0900, Until Discontinued, Routine 0842 (Given - Provider: Caterina Bradley RN) 0839 (Given - Provider: Tamara Horne RN) 0919 (Given - Provider: Tamara Horne RN) mineral oil-hydrophilic petrolatum (Aquaphor) ointment Topical, 2 times daily, First dose on Wed12/21/23 at 2100, Until Discontinued, Routine 0843 (Given - Provider: Caterina rBadley RN)2031 (Given - Provider: Obi Hutton RN) 0847 (Given - Provider: Tamara Horne RN)2002 (Given - Provider: Lai Billingsley RN) 09 (Not Given - Provider: Tamara Horne RN - Reason: Patient/family refused) potassium chloride CR (Klor-Con) ER tablet 40 mEq (COMPLETED) 40 mEq, Oral, Once, 1 dose, On Wed12/24/23 at 0700, Routine 0846 (Given - Provider: Tamara Horne RN) sodium chloride 0.9 % flush 10 mL(Linked Group 1) 10 mL, Intravenous, Every 12 hours, First dose on Wed12/17/23 at 0050, Until Discontinued, Routine 0006 (Given - Provider: Lai Billingsley RN)1341 (Given - Provider: Caterina Bradley, JAME)2355 (Given - Provider: Obi Hutton, JAME) 1600 (Given - Provider: Tamara Horne, JAME) 0054 (Given - Provider: Lai Billingsley RN)1250 (Canceled Entry - Provider: Automatic Discharge Provider - Comment: Automatically canceled at discontinue of medication order) tamsulosin (Flomax) 24 hr capsule 0.4 mg 0.4 mg, Oral, Daily with dinner, First dose on Wed12/21/23 at 1800, Until Discontinued, Routine 1803 (Given - Provider: Caterina Bradley, JAME) 1822 (Given - Provider: Tamara Horne, JAME) PRN Medication Order 12/23/2023 12/24/2023 12/25/2023 acetaminophen (Tylenol) tablet 650 mg 650 mg, Oral, Every 8 hours PRN, Starting on Wed12/17/23 at 1412, Until 12/25/23 at 1606, Routine, mild pain, moderate pain 2004 (Not Given - Provider: Lai Billingsley RN - Reason: Patient/family refused) albuterol 108 (90 Base) MCG/ACT inhaler 2 puff 2 puff, Inhalation, Every 6 hours PRN, Starting on Wed12/17/23 at 0052, Until 12/25/23 at 1606, Routine, wheezing, shortness of breath carboxymethylcellulose PF (Refresh Plus) 0.5 % ophthalmic solution 1 drop 1 drop, Both Eyes, 3 times daily PRN, Starting on 12/20/23 at 1118, Until 12/25/23 at 1606, Routine, dry eyes 1958 (Given - Provider: Lance Billingsley RN) dextrose 10 % (D10W) bolus 125 mL(Linked Group 2) 125 mL, Intravenous, Every 15 min PRN, Starting on Wed12/17/23 at 0050, Until 12/25/23 at 1606, Administer over 15 Minutes, Routine, low blood sugar per Hypoglycemia Prevention and Treatment protocol. glucagon (human recombinant) injection 1 mg(Linked Group 2) 1 mg, Intramuscular, Every 15 min PRN, Starting on Wed12/17/23 at 0050, Until 12/25/23 at 1606, Routine, low blood sugar per Hypoglycemia Prevention and Treatment protocol glucose (Glutose) 40 % oral gel 15 grams of glucose(Linked Group 2) 15 grams of glucose, Sublingual, Every 15 min PRN, Starting on Wed12/17/23 at 0050, Until 12/25/23 at 1606, Routine, low blood sugar, per Hypoglycemia Prevention and Treatment protocol guaiFENesin (Mucinex) 12 hr tablet 600 mg 600 mg, Oral, 2 times daily PRN, Starting on Wed12/17/23 at 0552, Until 12/25/23 at 1606, Routine, cough 1958 (Given - Provider: Lance Billingsley RN) ipratropium-albuterol (Duo-Neb) 0.5-2.5 mg/3 mL nebulizer solution 3 mL 3 mL, Nebulization, Every 6 hours PRN, Starting on Wed12/19/23 at 0700, Until 12/25/23 at 1606, Routine, wheezing polyethylene glycol (Miralax) packet 17 g 17 g, Oral, Daily PRN, Starting on Wed12/23/23 at 1745, Until 12/25/23 at 1606, Routine, constipation senna (Senokot) tablet 17.2 mg 17.2 mg (2 tablet), Oral, Nightly PRN, Starting on Wed12/23/23 at 1745, Until 12/25/23 at 1606, Routine, constipation sodium chloride 0.9 % flush 10 mL(Linked Group 1) 10 mL, Intravenous, As needed, Starting on Wed12/17/23 at 0047, Until 12/25/23 at 1606, Routine, line care Linked Groups Order Group 1: Insert peripheral IV (COMPLETED) Once, On Wed12/17/23 at 0048, For 1 occurrence And Saline lock IV (COMPLETED) Once, On Wed12/17/23 at 0048, For 1 occurrence And sodium chloride 0.9 % flush 10 mLJump to med 10 mL, Intravenous, Every 12 hours, First dose on Wed12/17/23 at 0050, Until Discontinued, Routine And sodium chloride 0.9 % flush 10 mLJump to med 10 mL, Intravenous, As needed, Starting on Wed12/17/23 at 0047, Until 12/25/23 at 1606, Routine, line care Group 2: glucose (Glutose) 40 % oral gel 15 grams of glucoseJump to med 15 grams of glucose, Sublingual, Every 15 min PRN, Starting on Wed12/17/23 at 0050, Until 12/25/23 at 1606, Routine, low blood sugar, per Hypoglycemia Prevention and Treatment protocol Or dextrose 10 % (D10W) bolus 125 mLJump to med 125 mL, Intravenous, Every 15 min PRN, Starting on Wed12/17/23 at 0050, Until 12/25/23 at 1606, Administer over 15 Minutes, Routine, low blood sugar per Hypoglycemia Prevention and Treatment protocol. Or glucagon (human recombinant) injection 1 mgJump to med 1 mg, Intramuscular, Every 15 min PRN, Starting on Wed12/17/23 at 0050, Until 12/25/23 at 1606, Routine, low blood sugar per Hypoglycemia Prevention [...] documented as of this encounter Care Teams Cold Food Packer Relationship Specialty Start Date End Date Erik Hurley MD [address] [place] [address] PCP - General 06/18/23 01/29/24 documented as of this encounter
--- OUTSIDE RECORDS SUMMARY | 2024-02-23 18:56 | XMS_ITS | Encounter Summary ---
Author Organization [facility] Address [address] [place] [address] Care Team Providers Care Seismic Prospecting Observer Helper Name Role Phone Erik Hurley MD Primary Care Provider [phone] Encounter Details Date Type Department Care Team (Latest Contact Info) Description 12/20/2023 Travel Social History Tobacco Use Types Packs/Day [...] slept in a mcc (including now)? No 12/17/2023 CAGE ASSESSMENT Answer [...] drink first t erin in the morning (EYE-LENS GRINDER ROUGH) to steady your nerves or to get [...] Description 03/07/2024 1:40 PM EST Office Visit [facility] [address], [address] [place] [address] Naeem Blunt MD [address] [place] [phone] documented as of this encounter Visit Diagnoses Not on filedocumented in this encounter Additional Health Concerns Infection Onset Date Last Indicated Resolved Time MRSA Comment:Positive blood culture 03/03/2019 01/30/2024 Assessment Noted Time A Body Mass Index follow-up plan has been documented for the patient 12/25/2023 10:38 AM EDT documented as of this encounter Care Teams Seismic Prospecting Observer Helper Relationship Specialty Start Date End Date Erik Hurley MD [address] [place] [address] PCP - General 06/18/23 01/29/24 documented as of this encounter
--- OUTSIDE RECORDS SUMMARY | 2024-02-23 18:56 | XMS_ITS | Encounter Summary ---
Author Organization Healthcare Address [address] [place] [address] Care Team Providers Care Hosted Services Analyst Name Role Phone Cierra Evans LPN [facility] e Erik Hurley MD Primary Care Provider [phone] Reason for Visit * Reason Comments TCM Call Encounter Details Date Type Department Care Team (Late st Contact Info) Description 06/18/2023 Patient Outreach POPULATION [facility] [address] [place] [address] Cierra Evans LPN [employer] [place] [address] TCM Call Social History Tobacco Use Types [...] place to sleep or slept in a prison (including now)? No 06/16/2023 CAGE ASSESSMENT Answer [...] drink first t erin in the morning (EYE-GLOVE BOARDER) to steady your nerves or to get rid of a hangover? 0 02/05/2023 CAGE Questionnaire Score 0 023 Utilities Answer Date Recorded In the past 12 months has th e [employer], gas, oil, or water company threatened to shut off services in your home? No 06/16/2023 Sex and Gender Information Value Date Recorded Sex Assigned at Not on file Legal Sex Male 8:15 PM EDT Gender Identity Not on file Sexual Orientation Not on file documented as of this encounter Miscellaneous Notes * Progress Notes - Evans, Cierra S, CARPENTER MATE - 06/18/2023 11:56 AM EDT Admission Date: 06/15/23 Discharge Date: 06/17/23 Hospital Service: Hospital Medicine Discharge Diagnosis: Shortness of breath ----- Medications: START taking: dapagliflozin (Farxiga) insulin glargine (Lantus) This replaces a similar medication. See the full medication list for instructions. mometasone-formoterol (Dulera 100) CHANGE how you take: furosemide (Lasix) hydrALAZINE (Apresoline) STOP taking: Levemir 100 UNIT/ML injection vial (insulin detemir) Replaced by a similar medication. ----- Per Discharge Summary: Patient is a 58 y.o. male w/HFrEF, suspected COPD, CAMACHO cirrhosis, DM2, CKD4, prior L AKA, and suspected difficulty accessing health care resources who initially presented to the [facility] on 06/14 with chief complaint of acute dyspnea. He was admitted for similar complaints in 02/2023 and discharged after management of acute HF exacerbation, with additional admission in 01/2023. CX MONIK appt patient is going to see his PCP the week of June. ----- Post Discharge Instructions: Please check labs on pt to evaluate how he is doing with new medications. We would like RFP, Mag, and BNP. Results should be Cced to Dr. Ricketts at Cardiology. documented in this encounter Plan of Treatment Upcoming Encounters Date Type Department Care Team (Late st Contact Info) Description 03/07/2024 1:40 PM EST Office Visit [facility] [address], [address] [place] [address] Naeem Blunt MD [address] [place] [address] documented as of this encounter [...] documented as of this encounter Care Teams Hosted Services Analyst Relationship Specialty Start Date End Date Erik Hurley MD [address] [place] [address] PCP - General 06/18/23 01/29/24 Cierra Evans LPN [employer] [place] [address] TCM Nurse 06/18/23 06/18/23 documented as of this encounter
--- OUTSIDE RECORDS SUMMARY | 2024-02-23 18:56 | XMS_ITS | Encounter Summary ---
Author Organization Healthcare Address [address] [place] [address] Care Team Providers Care Pluck Separator Name Role Phone Erik Hurley MD Primary Care Provider [phone] Encounter Details Date Type Department Care Team (Late st Contact Info) Description 12/16/2023 Orders Only External Location [address] [place] [address] Provider, External Social History Tobacco Use Types Packs/Day Years [...] to sleep or slept in a senior care (including now)? No 12/17/2023 CAGE ASSESSMENT Answer [...] drink first t erin in the morning (EYE-DRAIN TILER) to steady your nerves or to get [...] Upcoming Encounters Date Type Department Care Team ([facility] st Contact Info) Description 03/07/2024 1:40 PM EST Office Visit [facility] [place] [address], [address] [place] [address] Naeem Blunt MD [address] [place] [address] documented as of this encounter Procedures Procedure Name Priority Date/Time Associated Diagnosis Comments POC ULTRASOUND 12/16/2023 documented in this encounter Results * POC Imaging (12/16/2023) Anatomical Region Laterality Modality Pelvis Other 12/16/2023 us External Provider IMG POINT OF CARE ULTRASOUND F inal Result documented in this encounter Visit Diagnoses Not [...] documented as of this encounter Care Teams Pluck Separator Relationship Specialty Start Date End Date Erik Hurley MD [address] [place] [address] PCP - General 06/18/23 01/29/24 documented as of this encounter
--- OUTSIDE RECORDS SUMMARY | 2024-02-23 18:56 | XMS_ITS | Encounter Summary ---
Author Organization Healthcare Address [address] [place] [address] Care Team Providers Care Barrel Liner Name Role Phone Pcp, No Primary Care Provider Cierra Rutledge LPN Unavailable Erik Plunkett MD Primary Care Provider [phone] Encounter Details Date Type Department Care Team (Late st Contact Info) Description 06/15/2023 Orders Only External Location [address] [place] [id number] Provider, External Social History Tobacco Use Types [...] place to sleep or slept in a skilled nursing (including now)? No 06/16/2023 CAGE ASSESSMENT Answer [...] drink first t erin in the morning (EYE-CUTTER HEAD SHARPENER) to steady your nerves or to get [...] Description 03/07/2024 1:40 PM EST Office Visit [facility] [place] [address], [address] [place] [id number] Naeem Blunt MD [address] [place] [address] documented as of this encounter Procedures Procedure Name Priority Date/Time Associated Diagnosis Comments POC ULTRASOUND 06/15/2023 documented in this encounter Results * POC Imaging (06/15/2023) Anatomical Region Laterality Modality Pelvis Other 06/15/2023 us External Provider IMG POINT OF CARE [...] documented as of this encounter Care Teams Barrel Liner Relationship Specialty Start Date End Date Pcp, No [address] [place] [address] PCP - General Family Medicine 06/14/23 06/17/23 Erik Hurley MD [address] [place] [address] PCP - General 06/18/23 01/29/24 Cierra Evans LPN [employer] [place] [address] TCM Nurse 06/18/23 06/18/23 documented as of this encounter
--- OUTSIDE RECORDS SUMMARY | 2024-02-23 18:56 | XMS_ITS | Encounter Summary ---
Author Organization [facility] Address [address] [place] [address] Care Team Providers Care Dye Reel Operator Name Role Phone Erik Hurley MD Primary Care Provider [phone] Encounter Details Date Type Department Care Team (Latest Contact Info) Description 12/16/2023 Travel Social History Tobacco Use Types Packs/Day [...] place to sleep or slept in a retirement (including now)? No 12/17/2023 CAGE ASSESSMENT Answer [...] drink first t erin in the morning (EYE-DIRECTOR [employer]ULATORY AGENCY) to steady your nerves or to get [...] Description 03/07/2024 1:40 PM EST Office Visit [facility] [place] [address], [address] [place] [address] Naeem Blunt MD [address] [place] [phone] documented as of this encounter Visit Diagnoses [...] documented as of this encounter Care Teams Dye Reel Operator Relationship Specialty Start Date End Date Erik Hurley MD [address] [place] [address] PCP - General 06/18/23 01/29/24 documented as of this encounter
--- OUTSIDE RECORDS SUMMARY | 2024-02-23 18:57 | XMS_ITS | Encounter Summary ---
Author Organization [facility] Address [address] [place] [address] Care Team Providers Care Clerical Adjudicator Name Role Phone Terence Ring Primary Care Provider [phone] Erik Hurley MD Primary Care Provider [phone] Reason for Referral * Other Medical (Routine) - Pending Review Specialty Diagnoses / Procedures Referred By Neno noel Referred To Contact Diagnoses ALEXANDRE (obstructive sleep apnea) Procedures Overnight Polysomnography (Sleep Study) - Outside Facility Jerel Robertson DO [address] [place] [address] Phone: tel: fax: Referral ID Status Reason Start Date Expiration Date V isits Requested Visits Authorized [id number] Pending Review 03/25/2023 09/23/2024 1 1 * Home Health (Routine) - Authorized Specialty Diagnoses / Procedures Referred By Neno noel Referred To Contact Home Health Services Diagnoses Acute on chronic congestive heart failure, unspecified heart failure type (CMS/HCC) Jerel Robertson DO [address] [place] [address] Phone: tel: fax: Referral ID Status Reason Start Date Expiration Date Visits Requested Visits Authorized [id number] Authorized Specialty Services Required 09/23/2024 999 999 Reason for Visit * Reason Comments Shortness of Breath * Auth/Cert (Routine) Specialty Diagnoses / Procedures Referred By Contac t Referred To Contact Diagnoses HFrEF (heart failure with reduced ejection fraction) ([facility]) Pulmonary Edema on Bipap 40% Jerel Robertson DO [address] [place] [address] Phone: tel: fax: [facility] Emergency Department [address] [place] [id number] Phone: tel: Referral ID Status Reason Start Date Expiration Date Visits Re quested Visits Authorized [id number] 1 1 Encounter Details Date Type Department Care Team (Latest Contact Info) Description 03/23/2023 9:10 AM EST - 03/25/2023 2:43 PM EST Hospital Encounter [facility] Inpatient [address] [place] [id number] Amrit Marlow MD [address] [place] [address] Jerel Robertson DO [address] [place] [address] Acute on chronic congestive heart failure, unspecified heart failure type (CMS/HCC) (Primary Dx); ALEXANDRE (obstructive sleep apnea) Discharge Disposition: Home-Health Care Svc Social History Tobacco Use Types Packs/Day Years [...] money to buy more. Never true 03/24/20 23 Within the past 12 months, t he [...] slept in a chcf (including now)? 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 0 02/05/2023 CAGE Questionnaire Score 0 023 Utilities Answer Date Recorded In the past 12 months has th e Mister Spex, gas, oil, or water Nifti threatened to shut off services in your home? No 03/24/2023 Sex and Gender Information Value Date Recorded Sex Assigned at Not on file Legal Sex Male 8:15 PM EDT Gender Identity Not on file Sexual Orientation Not on file documented as of this encounter Last Filed Vital Signs Vital Sign Reading Time Taken Comments Blood Pressure 132/75 03/25/2023 11:05 AM EST Pulse 71 03/25/2023 7:35 AM EST Temperature 36.7 ??C (98.1 ??F) 03/25/2023 11:[address] Respiratory Rate 18 03/25/2023 11:05 AM EST Oxygen Saturation 100% 03/25/2023 11:05 AM EST Inhaled Oxygen Concentration - - Weight 92.1 kg (203 lb 0.7 oz) 03/23/2023 7:02 P M EST Height 182.9 cm (6') 03/23/2023 7:02 PM EST Body Mass Index 27.54 03/23/2023 7:02 PM EST documented in this encounter Discharge Instructions * Attachments The following attachments cannot be sent through Care Everywhere. * Aspirin Chewable Tablet ([place]) (Qatari) * Atorvastatin tablets (Qatari) * Carvedilol tablets ([place]ari) * Clopidogrel tablets ([place]) * Dapagliflozin tablets ([place]) * Entecavir tablets (Qatari) * Furosemide tablets (Qatari) * Gabapentin capsules or tablets (Qatari) * Hydralazine tablets (Qatari) * Umeclidinium inhalation powder (Qatari) * Isosorbide Dinitrate Oral Tablet (Qatari) * Insulin Detemir injection ([place]) * Nitroglycerin Sublingual Tablet ([place]) ([place]) * Insulin Aspart Pen Injector 100 UNT/mL (3 mL) (Qatari) documented in this encounter Medications at Time [...] (one) time each day. 30 tablet 3 03/26/2023 4 entecavir (Baraclude) 0.5 MG tablet Take 1 tablet (0.5 mg) by mouth every other day. 15 tablet 2 03/25/2023 4 furosemide (Lasix) 40 MG tablet Take 1 tablet (40 mg) by mouth 1 (one) time each day. 30 tablet 3 03/25/2023 4 gabapentin (Neurontin) 600 MG tablet Take 1 tablet (600 mg) by mouth 3 (three) times a day. 4 hydrALAZINE (Apresoline) 50 MG tablet Take [...] the skin every night. 06/12/2020 4 insulin detemir (Levemir) 100 UNIT/ML injection vial Inject 18 Units under the skin 1 (one) time each day. 10 mL 1 03/25/2023 4 isosorbide dinitrate (Isordil) 40 MG tablet Take 1 tablet (40 mg) by mouth 3 (three) times a day. 90 tablet 11 02/12/2023 4 Umeclidinium [place] (Incruse Ellipta) 62.5 MCG/ACT aerosol powder Inhale 1 Inhalation 1 (one) time each day. 7 each 1 02/12/2023 4 documented as of this encounter Miscellaneous Notes * Progress Notes - Wei Arshad RN - 03/25/2023 1:28 PM EST Images from the original note were not included. Wound Care Consult Visit Date: 03/25/2023 Patient Name: Robert Hurley Date of : 1965 Admit Date: 03/23/2023 Reason for Consult: IP Wound Orders (From admission, onward) Start Ordered 03/24/23 1247 Wound ostomy eval and treat Once Comments: Assess for treatment plan. Question: Reason for consult: Answer: Wound/pressure injury 03/24/23 1247 Wound History: CHF, CAD, DM, lt AKA Wound Assessment: Wound 02/03/23 Pretibial Right (Active) Date First Assessed/Time First Assessed: 02/03/23 1506 Location: Pretibial Wound Location Orientation: Right Assessments 03/25/2023 11:15 AM Wound Image Wound Assessment Red;Pale (partial to full thickness open weeping areas) Margins Poorly defined Josefina-Wound Assessment Intact;Hyperpigmented Drainage Description Serosanguineous Drainage Amount Small Treatments Cleansed;Saline Dressing Non adherent;Gauze Dressing Changed Changed Dressing Status Intact;Old drainage Active Orders Date Order Priority Status Authorizing Provider 03/25/23 1326 Apply/Change Wound Dressing Routine Active Jerel Robertson DO - Dressing Type: Other Dressings - Other: Other (Comment) - Other dressing (comment):: RLE: wash with soap and water pat dry, apply adaptic dry gauze and wrap daily Wound Team Summary Assessment: pt seen and assessed, found pt bent over in chair picking/scratchingRLE, tegaderm in place with serosanguinous drainage noted. RLE with slight edema, evidence of hemosiderin staining,scattered partial to full thickness skin loss over lower 3rd of leg, given pt's Hx of CAD, CHF, CKD, DM areas are consistent with vasc insuff with venous stasis ulcerations, cleansed and adaptic gauze, 4x4s and kerlix applied. Pt states he uses neosporin at home. Recommended pt cleanse daily with soap and water and applied a dressing, do not scratch etc. Wound Team Plan: pt will be d/c'd later today, no further follow up needed Wei Arshad RN 03/25/2023 1:28 PM * Discharge Instr - Diet - Laura Singleton RN - 03/25/2023 11:42 AM EST Resume diet as instructed. A sodium/fluid restricted diet is recommended for patients with heart failure. Try to restrict sodium to no more than 2000 mg/day and fluid to no more than 2 liters/day. * Discharge Instr - Activity - Laura Singleton RN - 03/25/2023 11:42 AM EST Activity as tolerated. Weigh yourself every day after you get up and go to the bathroom. Write it down to bring with you when you follow up with your provider. Notify your provider if you gain >2 lb in one day or 5lb in1 week, feel more short of breath,or have increased swelling in your feet, legs, or abdomen. * Discharge Instr - AVS First Page - Laura Singleton RN - 03/25/2023 11:42 AM EST Please call for any questions/concerns regarding your hospital stay. Call the Cardiology clinic during the day at [phone]. If you need to speak to a physician and the clinic is closed please call the paging underground drill operator at [phone] and ask to speak to the Chainstitch Felled Seam Operator acute care occupational therapist. * Discharge Summary - Josh Mcmanus MD - 03/25/2023 11:23 AM EST Hospitalization Admit Date/Time: 03/23/2023 9:10 AM Admitting Attending: Jerel Robertson Discharge Date: 03/25/23 Discharge Attending Physician: Jerel Robertson DO PCP name and Address: Erik Hurley MD [address] [facility] [address] Referring provider name and address: John Sue MD [address] [place] [address] Chief Concern, Brief History of Present Illness, and Hospital Course Robert Hurley is a 57 y.o. male with significant PMH of CAD s/p PCI, HFmrEF, COPD, DM2, CAMACHO cirrhosis, and left AKA who presented to [facility] on 03/23/2023 with shortness of breath. Pt was recently discharged from cardiology service and was treated for HFrEF exacerbation. He presented to OSH due to recurrent dyspnea, LE edema, and orthopnea. Pt was discharged on Lasix 40, however was recently change d on 03/15 to Lasix 20 daily. Upon admission, pt was on BiPAP and was weaned to 2L of NC. BNP was noted at 35,000, negative troponin and Cr of 2.83. CXR displayed mild pulmonary edema. While admitted, pt was diuresed with IV 40 Lasix with adequate UO along with resolution of signs and symptoms of volume overload. GDMT was reviewed and continued with Hydralazine 50 TID and Isordil 40 TID and Coreg12.5 BID. Farxiga was started during hospitalization and was continued upon discharge. Due to CKD with unknown Cr baseline, NARESH/ARB and Spironolactone was deferred and to be reviewed in an outpatientsetting with repeat labs. Pt continued to improve with diuresis and was promoted appropriate for discharge. Hospital course was complicated by elevated glucose secondary to T2DM. Insulin regimen was increased from previous dosage with long activing 18 and short acting 6 TID. Along with this, pt wasnoted to have desaturation of oxygen at night, without daytime and exertion desaturation. Referral for outpatient sleep study was made and pt to follow-up with PCP regarding results and intervention. On day of discharge, pt promotes he feels well without feeling of SOA or dyspnea. Promoted working with PT/OT without difficulty. States his swelling is at his baseline. Pt is ready to go home. # Acute HFrEF Exacerbation # Acute on Chronic Respiratory Failure - EDD noted on 02/10/23 displayed EF of 40-45% at last admission. Pt was since discharged and was placed on 40 Lasix daily. However, pt was switched to 20 daily from [facility] on 03/15/23. - Etiology secondary to Lasix change not meeting threshold. - Currently on 2L at night- which is patient's home regimen. - Pt received 1x Lasix 40 yesterday with -175 mL net. Clinically improving from orthopnea and SOA standpoint. - Diuresis with 40 Lasix IV. Transitioned to PO Lasix 40 with adequate UO response. Plan: - GDMT: Currently on Hydralazine and Isordil due to renal function. Continued Coreg 12.5. Will continue SGLT-2 at discharge. - Will hold NARESH/ARB and Spironolactone due to renal function, to be re-visited as an outpatient. - PT/OT promoted home health- ordered. - To continue Lasix 40 PO daily. - To follow-up with [facility] in [place], [place]. Appointment made on Wednesday at 2:00. # Normocytic Anemia - Hgb noted to be 8-9 during hospitalization - Pt denies melena or signs of bleeding. - Iron of 48 with TIBC of 205. Ferritin of 165. - Pt to follow-up with PCP regarding colonoscopy and further work-up and management. # T2DM - Insulin regimen of 13 daily with Lispro 5 TID with SSI. Will increase to 18 nightly with 6 with meals. - Will continue Farxiga during hospitalization and discharge. - Will increase to 18 nightly with 6 with meals. # Suspected ALEXANDRE - Desaturation at night without signs of desaturation throughout the day or with exertion. - Ordered Sleep Study- to follow-up with PCP regarding results and intervention. # Chronic Hepatitis B - Will continue Entecavir # CKD Stage 4 - GFR of 23.9 along with Cr of 2.98. - Previously hospitalization displayed Cr of >3.5. Unknown baseline. - Previously referred to [facility], however pt did not attend. - To follow-up with PCP regarding nephrology follow-up. # Medically Managed NSTEMI History - Medically managed in January. - Will continue Plavix/ASA along with Atorvastatin Surgeries and Procedures Medication List . aspirin 81 MG chewable tablet Chew 1 [...] 1 tablet (0.5 mg) by mouth every 3rd (third) day. furosemide 40 MG tablet Commonly known as: Lasix Take 1 tablet (40 mg) by mouth 1 (one) time each day if needed (for weight gain of 3 lbs in 1 day or 5 lbs in 1 week). hydrALAZINE 50 MG tablet Commonly known as: Apresoline Take 1 tablet (50 mg) by mouth 3 (three) times a day. Incruse Ellipta 62.5 MCG/ACT aerosol powder Generic drug: Umeclidinium [place] Inhale 1 Inhalation 1 (one) time each day. isosorbide dinitrate 40 MG tablet Commonly known as: Isordil Take 1 tablet (40 mg) by mouth 3 (three) times a day. Levemir 100 UNIT/ML injection vial Generic drug: insulin detemir Inject 13 Units under the skin 1 (one) time each day. nitroglycerin 0.4 MG SL tablet Commonly known as: Nitrostat Place 1 tablet (0.4 mg) under the tongue every 5 (five) minutes if needed for chest pain. NovoLOG FlexPen ReliOn 100 UNIT/ML injection pen Generic drug: insulin aspart Inject 5 Units under the skin 3 (three) times a day. Discharge Diagnosis Medical Problems Active and Resolved Hospital Problems Hospital * (Principal) HFrEF (heart failure with reduced ejection fraction) (CMS/[facility]) Post Discharge Instructions Follow-up with Cardiology on 03/30/22 To follow-up with PCP in 2-4 weeks TO complete Sleep Study when available. Take Lasix 40 PO Daily. Home health to see patient. Outpatient Follow-Up No future appointments. Test Results Pending At Discharge None. Pertinent Physical Exam At Time of Discharge Physical Exam Constitutional: General: He is not in acute distress. HENT: Mouth/Throat: Mouth: Mucous membranes are moist. Cardiovascular: Rate and Rhythm: Normal rate. Pulmonary: Effort: Pulmonary effort is normal. No respiratory distress. Breath sounds: Normal breath sounds. Abdominal: General: Abdomen is flat. Bowel sounds are normal. Palpations: Abdomen is soft. Musculoskeletal: Comments: Right LE without edema present. Multiple wounds present without signs of infection. Skin: General: Skin is warm. Neurological: General: No focal deficit present. Mental Status: He is alert and oriented to person, place, and time. Psychiatric: Mood and Affect: Mood normal. Discharge Disposition/Condition Disposition: Home with Home Health Condition: Stable (s/sx potential problems absent or manageable) I spent >30 minutes of patient care and instruction time in preparation for this discharge. Cosigned by Jerel Robertson DO at 03/25/2023 11:54 AM EST Associated attestation - Jerel Robertson DO - 03/25/2023 11:54 AM EST I saw and evaluated the patient with the resident/fellow. I discussed the case with the resident/fellow and agree with the findings and plan as documented. * Care Plan - Lynda Gtz RN - 03/25/2023 9:42 AM EST Problem: Adult Inpatient Plan of Care Goal: Plan of Care Review Outcome: Ongoing, Progressing Goal: Patient-Specific Goal (Individualized) Outcome: Ongoing, Progressing Goal: Absence of Hospital-Acquired Illness or Injury Outcome: Ongoing, Progressing Goal: Optimal Comfort and Wellbeing Outcome: Ongoing, Progressing Goal: Readiness for Transition of Care Outcome: Ongoing, Progressing Problem: Fluid Volume Excess Goal: Fluid Balance Outcome: Ongoing, Progressing * Progress Notes - Nell Judge - 03/25/2023 8:51 AM EST Occupational Therapy Evaluation Patient Name: Robert Hurley Today's Date: 03/25/2023 OT Discharge Recommendations: Home with assistance, Home health PT, Home health OT Equipment Recommended: Rollator History Robert Hurley is 57 y.o. male admitted 03/23/2023 for work-up of HFrEF (heart failure with reducedejection fraction) ([facility]). Problem List Active Hospital Problems Diagnosis Date Noted Acute on chronic congestive heart failure ([facility]) 03/25/2023 HFrEF (heart failure with reduced ejection fraction) ([facility]) 03/23/2023 Past 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 Patient has a past [...] Precautions Medical Precautions: Fall precautions Subjective I feel safe to go home. Participants in Care Family/Caregiver Present: No Presentation Oxygen Therapy: Supplemental oxygen O2 Delivery Method: Nasal cannula O2 Flow Rate (L/min): 2 L/min Lines and Tubes: Peripheral IV 03/23/23 Right Antecubital (Active) Peripheral IV 03/23/23 Left Antecubital (Active) Pre-Session: Supine, Head of bed elevated, Lines intact Post-Session: Sitting in chair, RN notified, Lines intact, Call light in reach Home Living/Set-up Lives With: Alone Home Type: Apartment Home Adaptive Equipment: Quad cane, Wheelchair-manual, Rolling walker, shower chair (oxygen at homeat night.) Home Layout: One level Prior Level of Function Receives Help From: Son Level of Mobility: Ambulatory- household only Mobility Brewster: Independent gait with device History of Falls: No ADL Performance: Needs assistance Bathing: Needs device Upper Body Dressing: Independent Lower Body Dressing: Independent Grooming: Independent Toileting: Independent Eating: Independent Home Management Skills: Needs assist (Pt's son assist with driving to appointments and grocery shopping.) Patient/Family Goals Statement To get better and go home. Objective Pain Pt denied pain. Delirium Screening Mckinley Agitation Sedation Scale (RASS): Alert and calm Confusion Assessment Method-ICU (CAM-ICU/PCAM-ICU) Feature 3: Altered Level of Consciousness: Negative Cognition Overall Cognitive Status: Within Functional Limits Arousal/Alertness: Appropriate responses to stimuli Mood/Behavior: Alert Orientation Level: Oriented X4 Single Step Commands: Consistently Method of Communication: Verbal Right Upper Extremity Examination RUE ROM Assessment RUE Assessment: Within Functional Limits Manual Muscle Testing - RUE: Within functional limits Sensation Light Touch: Right Upper Extremity: Mild impairment (chronic neuropathy) Left Upper Extremity Examination LUE ROM Assessment LUE Assessment: Within Functional Limits Manual Muscle Testing - LUE: Within functional limits Sensation Light Touch: Left Upper Extremity: Mild impairment (chronic neuropathy) Right Lower Extremity Examination RLE ROM Assessment RLE Assessment: Within Functional Limits Manual Muscle Testing - RLE: Within functional limits Sensation Light Touch: Right Lower Extremity: Mild impairment (chronic neuropathy) Left Lower Extremity Examination LLE ROM Assessment LLE Assessment: Within Functional Limits (AKA) Manual Muscle Testing: Within functional limits (AKA) Sensation Light Touch: Left Lower Extremity: Severe impairment (AKA) Bed Mobility Bed Mobility Exam: Supine to Sit Level of Brewster: Modified Brewster Physical/Nonphysical Assist: HOB elevated Transfers Transfer Exam: Sit to stand Level of Brewster: Stand-by assist Physical/Nonphysical Assist: Supervision Transfer Exam: Stand to Sit Level of Brewster: Stand-by assist Physical/Nonphysical Assist: Supervision Balance Postural Appearance Posture: Stooped posture, Forward head Static Sitting Balance Static Sitting-Balance Support: Feet supported Static Sitting-Level of Assistance: Independent Dynamic Sitting Balance Dynamic Sitting-Balance Support: Feet supported Level of Assistance: Independent Static Standing Balance Static Standing-Balance Support: Right upper extremity support, Left upper extremity support Static Standing-Level of Assistance: Supervision Dynamic Standing Balance Dynamic Standing-Balance Support: Right upper extremity support, Left upper extremity support Dynamic Standing Level of Assistance: Contact guard Participation in Functional Tasks: Contact guard Self-Care Interventions Self Care/Home Management (ADLs) Time Entry: 10 Self-Care Interventions: Pt educated on rollator vs quad cane and educated on fall prevention. Pt initially requiring close CGA to walk with cane progressing to SBA with rollator. Pt required cues for locking brakes and proximity to rollator for improved safety. Pt also educated on ways to utilize rollator for home management tasks and energy conservation techniques while using rollator in home. Pt verbalized understanding. Pt completed bathing tasks for sponge bath with s/u assistance. Pt required A to don gown but anticipated ot be independent with UB dressing with a thread puller shirt. Standardized Assessments [facility] 6-Click Daily Activities Help from Other: Don/Doff Regular Lower Body Clothings: Little Help From Other: Bathing: Little Help From Other: Toileting: None Help From Other: Don/Doff Upper Body Clothings: None Help From Other: Grooming: None Help From Other: Eating Meals: None [facility] 6 Click - Daily Activities Score: 22 Assessment In addition to OT evaluation, pt participated in OT session with a focus on ADL retraining and functional endurance. Pt tolerated session with fair energy for task. Pt is most limited by endurance and pain. Pt would benefit from continued skilled OT services to address AE/DME training, activity tolerance, and overall muscle power needed for increased independence with ADLs and functional mobility. OT Findings: Impaired ADL performance, Impaired IADL performance, Impaired judgment during ADL, Decreased endurance/ventilation/gas exchange, Impaired functional mobility, Impaired balance Evaluation/Treatment Tolerance: Patient limited by fatigue Rehab Potential: Good, to achieve stated therapy goals Eval Complexity Occupational Profile: Brief history including review of medical/therapy records relating to presenting problem Performance Deficits: Instrumental activities of daily living (IADLs), Activities of daily living (ADLs), Personal, Physical Clinical Decision Making: Moderate Overall Eval complexity: Moderate OT Recommendations Discharge Destination: Home with assistance, Home health PT, Home health OT Discharge Equipment: Rollator Plan Planned OT Interventions ADL retraining, IADL retraining, Bed mobility Training, Balance training, Strengthening, Transfer training, Functional mobility, Caregiver education OT Frequency 2 - 5 times per week OT Duration 2 weeks Goals OT GOAL DETAILS Time Frame OT Goal 1: Pt will complete total body dressing skills with modified independence and appropriate adaptive device. 2 weeks OT Goal 2: Pt will complete toileting skills with modified independence and appropriate adaptive device. 2 weeks OT Goal 3: Pt will complete functional transfers with modified independence and appropriate adaptive device to increase independence with toilet transfers. 2 weeks Written by Nell Judge on 03/25/23 at 1:36 PM. * Progress Notes - Harjinder Heath - 03/25/2023 8:50 AM EST Physical Therapy Evaluation Patient Name: Robert Hurley Today's Date: 03/25/2023 PT Discharge Recommendations: Home with assistance Equipment Recommended: Rollator History Robert Hurley is 57 y.o. male admitted 03/23/2023 for work-up of HFrEF (heart failure with reducedejection fraction) ([facility]). Problem List Active Hospital Problems Diagnosis Date Noted Acute on chronic congestive heart failure ([facility]) 03/25/2023 HFrEF (heart failure with reduced ejection fraction) ([facility]) 03/23/2023 Procedures Past 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 Patient has a [...] Precautions Medical Precautions: Fall precautions Subjective Patient motivated to return home. Participants in Care Family/Caregiver Present: No Presentation Oxygen Therapy: Supplemental oxygen O2 Delivery Method: Nasal cannula O2 Flow Rate (L/min): 2 L/min Lines and Tubes: Peripheral IV 03/23/23 Right Antecubital (Active) Peripheral IV 03/23/23 Left Antecubital (Active) Pre-Session: Supine, Head of bed elevated, Lines intact Post-Session: Sitting in chair, RN notified, Lines intact, Call light in reach Home Living/Set-up Lives With: Alone Home Type: Apartment Home Adaptive Equipment: Quad cane, Wheelchair-manual, Rolling walker, shower chair (oxygen at homeat night.) Home Layout: One level Prior Level of Function Receives Help From: Son Level of Mobility: Ambulatory- household only Mobility Brewster: Independent gait with device History of Falls: No ADL Performance: Needs assistance Bathing: Needs device Upper Body Dressing: Independent Lower Body Dressing: Independent Grooming: Independent Toileting: Independent Eating: Independent Home Management Skills: Needs assist (Pt's son assist with driving to appointments and grocery shopping.) Patient/Family Goals Objective Pain Pt denied pain. Delirium Screening Mckinley Agitation Sedation Scale (RASS): Alert and calm Confusion Assessment Method-ICU (CAM-ICU/PCAM-ICU) Feature 3: Altered Level of Consciousness: Negative Cognition Overall Cognitive Status: Within Functional Limits Arousal/Alertness: Appropriate responses to stimuli Mood/Behavior: Alert Orientation Level: Oriented X4 Single Step Commands: Consistently Method of Communication: Verbal Right Upper Extremity Examination RUE Assessment: Within Functional Limits Manual Muscle Testing - RUE: Within functional limits Sensation Light Touch: Right Upper Extremity: Mild impairment (chronic neuropathy) Left Upper Extremity Examination LUE ROM Assessment LUE Assessment: Within Functional Limits Manual Muscle Testing - LUE Manual Muscle Testing - LUE: Within functional limits Sensation Light Touch: Left Upper Extremity: Mild impairment (chronic neuropathy) Right Lower Extremity Examination RLE ROM Assessment RLE Assessment: Within Functional Limits Manual Muscle Testing - RLE Manual Muscle Testing - RLE: Within functional limits Sensation Light Touch: Right Lower Extremity: Mild impairment (chronic neuropathy) Left Lower Extremity Examination LLE Assessment: Within Functional Limits (AKA) Manual Muscle Testing: Within functional limits (AKA) Sensation Light Touch: Left Lower Extremity: Severe impairment (AKA) Bed Mobility Bed Mobility Exam: Supine to Sit Level of Brewster: Modified Brewster Physical/Nonphysical Assist: HOB elevated Transfers Transfer Exam: Sit to stand Level of Brewster: Stand-by assist Physical/Nonphysical Assist: Supervision Transfer Exam: Stand to Sit Level of Brewster: Stand-by assist Physical/Nonphysical Assist: Supervision Ambulation Device: Quad cane, Rollator Assistance: Contact guard assist, Standby assist, Minimal verbal cues Distance : 50'x2 Ambulation Comments: Patient initially ambulated with quad cane but was intermittently unsteady. Therapist provided patient with rollator with significantly improved gait quality and balance. Balance Postural Appearance Posture: Stooped posture, Forward head Static Sitting Balance Static Sitting-Balance Support: Feet supported Static Sitting-Level of Assistance: Independent Dynamic Sitting Balance Dynamic Sitting-Balance Support: Feet supported Level of Assistance: Independent Static Standing Balance Static Standing-Balance Support: Right upper extremity support, Left upper extremity support Static Standing-Level of Assistance: Supervision Dynamic Standing Balance Dynamic Standing-Balance Support: Right upper extremity support, Left upper extremity support Dynamic Standing Level of Assistance: Contact guard Participation in Functional Tasks: Contact guard Therapeutic Activity (8 minutes) Patient required brief breaks and increased time throughout session due to decreased endurance and gait training. Therapist provided cues for focus on pacing and energy conservation in order to improve endurance/activity tolerance this session. Patient was able to ambulate 50'x2 with quad cane and rollator with 1 seated rest break. Therapist educated patient on rollator safety including brake management, positioning/hand placement during gait and transfers to/from the rollator seat. Discussed discharge recommendations with patient who is in agreement with current recommendations and express no concerns regarding safety/mobility upon return home. Standardized Assessments Standardized Assessments Standardized Assessments: [facility] 6-Clicks Mobility Assessment [facility] 6-Clicks Mobility Assessment Difficulty patient has turning over in bed (including adjusting bedclothes, sheets, and blankets)?:None Difficulty patient has sitting down on and standing up from a chair with arms (wheelchair, bedside commode, etc.)?: None Difficulty patient has moving from lying on back to sitting on the side of the bed?: None How much help does the patient need moving to and from a bed to a chair (including a wheelchair)?: None How much help does the patient need to walk in hospital room?: A little How much help does the patient need climbing 3-5 steps with a railing?: A little [facility] 6-Clicks Mobility Assessment Total : 22 Standardized Assessments Standardized Assessments Standardized Assessments: [facility] 6-Clicks Mobility Assessment [facility] 6-Clicks Mobility Assessment Difficulty patient has turning over in bed (including adjusting bedclothes, sheets, and blankets)?:None Difficulty patient has sitting down on and standing up from a chair with arms (wheelchair, bedside commode, etc.)?: None Difficulty patient has moving from lying on back to sitting on the side of the bed?: None How much help does the patient need moving to and from a bed to a chair (including a wheelchair)?: None How much help does the patient need to walk in hospital room?: A little How much help does the patient need climbing 3-5 steps with a railing?: A little [facility] 6-Clicks Mobility Assessment Total : 22 Assessment Patient remains unsteady 2/2 AKA and decreased balance leading to increased fall risk, however patient reports that he is at his baseline level of mobility and expresses no concerns regarding return home. Eval Complexity History Profile: 1 - 2 personal factors and/or comorbidities Clinical Presentation: Evolving clinical presentation with changing characteristics Clinical Decision Making: Moderate complexity PT Recommendations Discharge Destination: Home with assistance Discharge Equipment: Rollator Plan Patient no longer demonstrates need for inpatient physical therapy services, patient discharged from hospital this date. Patient to be discharged from physical therapy. Written by Harjinder Heath on 03/25/23 at 3:11 PM. * Care Plan - Lynda Gtz RN - 03/24/2023 6:14 PM EST Problem: Adult Inpatient Plan of Care Goal: Plan of Care Review Outcome: Ongoing, Progressing Goal: Patient-Specific Goal (Individualized) Outcome: Ongoing, Progressing Goal: Absence of Hospital-Acquired Illness or Injury Outcome: Ongoing, Progressing Goal: Optimal Comfort and Wellbeing Outcome: Ongoing, Progressing Goal: Readiness for Transition of Care Outcome: Ongoing, Progressing * Progress Notes - Josh Mcmanus MD - 03/24/2023 11:47 AM EST Images from the original note were not included. INPATIENT CARDIOLOGY ([facility]) DAILY PROGRESS NOTE SUBJECTIVE No acute events overnight. Pt states he slept well and denies SOA or orthopnea. Pt is currently on 2L at night, as he is at home. Pt is sitting up in bed without difficulty. Discussion was made to diurese patient today with possible discharge tomorrow- pt agreed. Great discussion was made to follow-up with [facility] in [place]- as [place] is too far for pt to go to- pt agreed. No acute events on telemetry ROS: Pertinent ROS obtained, as noted above. OBJECTIVE Vitals Visit Vitals BP 121/68 (BP Location: Left arm, Patient Position: Lying) Pulse 69 Temp 36.6 ??C (97.8 ??F) (Oral) Ht 1.829 m (6') Wt 92.1 kg (203 lb 0.7 oz) SpO2 99% BMI 27.54 kg/m?? Intake/Output Summary (Last 24 hours) at 03/24/2023 1147 Last data filed at 03/24/2023 0950 Gross per 24 hour Intake 1200 ml Output 1375 ml Net -175 ml Net IO Since Admission: -475 mL [03/24/23 1147] O2 Delivery Method: Nasal cannula Physical Exam: GENERAL: no acute distress, cooperative SKIN: warm and dry, no rashes, wounds, ulcers EYES: conjunctiva clear, EOMI, PERRLA ENT: intact, mucous membranes moist, no apparent injury HEAD/NECK: neck supple, no apparent injury, no cervical lymphadenopathy RESPIRATORY/THORAX: breath sounds equal, respirations non-labored, no wheezes, rales, rhonchi CARDIOVASCULAR: regular rate and rhythm, normal S1 and S2, no murmurs, pulses 2+, trace edema GASTROINTESTINAL: bowel sounds normal, soft, non-tender, no hepatosplenomegaly MUSCULOSKELETAL: no joint swelling, full range of motion in all extremities NEUROLOGICAL: CN II-IX intact grossly, interactive and normal tone PSYCHOLOGICAL: Alert & Oriented x4, appropriate mood and behavior Labs CBC: Lab Results Component Value Date WBC 6.91 03/24/2023 HGB 8.8 (L) 03/24/2023 HCT 27.4 (L) 03/24/2023 PLT 193 03/24/2023 MCV 88 03/24/2023 MCH 28.1 03/24/2023 MCHC 32.1 03/24/2023 RDW 13.6 03/24/2023 NRBC 0.0 03/24/2023 Differential: Lab Results Component Value Date WBC 6.91 03/24/2023 Coagulation: No results found for: INR , PT , PTT , CLFGN Renal: Lab Results Component Value Date NA 139 03/24/2023 K 5.1 (H) 03/24/2023 CL 101 03/24/2023 CO2 26 03/24/2023 BUN 76 (H) 03/24/2023 CREATININE 2.99 (H) 03/24/2023 GLUCOSE 298 (H) 03/24/2023 CALCIUM 8.5 (L) 03/24/2023 MG 2.3 03/24/2023 Liver: No results found for: AST , ALT , ALPHO , BILITOT , BILIDIR Glucose: Lab Results Component Value Date PGLU 226 (H) 03/24/2023 PGLU 260 (H) 03/24/2023 PGLU 460 (H) 03/23/2023 PGLU 434 (H) 03/23/2023 Lab Results Component Value Date HGBA1C 6.6 (H) 02/03/2023 Imaging XR Chest 1 View Final Result Bilateral lower lobe predominant opacities which could represent multifocal infection versus pulmonary edema. Blunting of the right costophrenic angle consistent with small pulmonary effusion. CRITICAL RESULT: No. COMMUNICATION: Per this written report. Preliminary report signed by Chito Scruggs DO on 03/23/2023 9:50 AM By electronically signing this report, I, the attending physician, attest that I have personally reviewed the images/data for the above examination(s) and agree with the final edited report. Drafted by Chito Scruggs DO on 03/23/2023 9:39 AM Final report signed by Gurinder Ortiz MD on 03/23/2023 9:53 AM ASSESSMENT/PLAN Robert Hurley is a 57 y.o. male with significant PMH of CAD s/p PCI, HFmrEF, COPD, DM2, CAMACHO cirrhosis, and left AKA who presented to [facility] on 03/23/2023 with shortness of breath. # Acute on Chronic HFrEF Exacerbation # Acute on Chronic Respiratory Failure - EDD noted on 02/10/23 displayed EF of 40-45% at last admission. Pt was since discharged and was placed on 40 Lasix daily. However, pt was switched to 20 daily from [facility] on 03/15/23. - Etiology secondary to Lasix change not meeting threshold. - Currently on 2L at night- which is patient's home regimen. - Pt received 1x Lasix 40 yesterday with -175 mL net. Clinically improving from orthopnea and SOA standpoint. Plan: - Will IV diurese today with 40 lasix this morning. Will give PO Lasix this afternoon for possible discharge tomorrow- pending response to PO Lasix. - GDMT: Currently on Hydralazine and Isordil due to renal function. Continued Coreg 12.5. Will start SGLT-2 today- to be discharged on Jardiance. - Will hold NARESH/ARB and Spironolactone due to renal function, to be re-visited as an outpatient. - Will have PT/OT see patient. - Will have Oxygen Evaluation completed. - Possible discharge tomorrow- pending status of patient. # Normocytic Anemia - Hgb noted to drop from 11.1 to 8.8 overnight. - Pt denies melena or signs of bleeding. - Will recheck CBC. # T2DM - Insulin regimen of 13 daily with Lispro 5 TID with SSI. Will increase to 18 nightly with 6 with meals. - Will start Farxiga during hospitalization. # Chronic Hepatitis B - Will continue Entecavir # CKD Stage 4 - GFR of 23.9 along with Cr of 2.99. - Previously hospitalization displayed Cr of >3.5. Unknown baseline. - Previously referred to Nephrology, however pt did not attend. - Will discuss with nephrology with possible online platform for appointment. # Medically Managed NSTEMI History - Medically managed in January. - Will continue Plavix/ASA along with Atorvastatin F: PO E: monitor and replete PRN N: Sodium restriction DVT ppx: Heparin Code Status: Full Dispo: Diurese with possible D/C tomorrow. Josh Mcmanus MD Internal Medicine, PGY-1 Cosigned by Jreel Robertson DO at 03/24/2023 4:30 PM EST Associated attestation - Jerel Robertson DO - 03/24/2023 4:30 PM EST I saw and evaluated the patient with the resident/fellow. I discussed the case with the resident/fellow and agree with the findings and plan as documented. * Progress Notes - Juan See - 03/24/2023 10:04 AM EST Case Management Adult Initial Progress Note Robert Hurley 57 y.o. male CSN: [id number] Admission: 03/23/2023 9:10 AM Primary Problem: HFrEF (heart failure with reduced ejection fraction) (CMS/[facility]) Decay Control Operator reviewed chart and spoke with patient at bedside to complete this Initial Case Management Assessment. PCP: Erik Hurley MD in [facility] Emergency Contact: Extended Emergency Contact Information Primary Emergency Contact: Saurabh Hurley Mobile Relation: Other Preferred language: Qatari Light Fixture Servicer needed? No Insurance: Primary Visit Coverage Payer Plan Sponsor Code Group Number Group Name MEDICARE MEDICARE PART A ONLY Primary Visit Coverage Subscriber Subscriber ID Subscriber Name Subscriber SSN Subscriber Address [id number] ROBERT HURLEY JR R [id number] [place] [address] Secondary Visit Coverage Payer Plan Sponsor Code Group Number Group Name [facility]ID[facility]MET [facility] MEDICAID TRADITIONAL Secondary Visit Coverage Subscriber Subscriber ID Subscriber Name Subscriber SSN Subscriber Address [id number] WANDERROBERT R [id number] [place] [address] Patient information: Primary Caregiver: Self Accompanied by/Relationship: N/A Support System: Immediate family Daily Living Activities: Functional Status: Independent Living Arrangements: Alone Type of Residence: Private residence, Single Level [address] [place] [address] Current DME: Equipment Currently Used at Home: cane, straight, oxygen Current DME Provider: Uses his own O2 concentrator at night purchased through [employer] Income Information: Income Source: Disabled Current Resources Utilized: None Housing Circumstances-Z Codes: Housing Circumstances (select all that apply): Low Income (101-300% Federal Poverty Guidlines) - Z596 Patient Referred to: N/A Anticipated Discharge Date: TBD Patient's Discharge Goal: Return home Assistance Available at Discharge: ~Son Discharge Transport: Son Follow Up Transport: Son/Self Home Health / Home Infusion / Outpatient Dialysis Services: Current DME Provider: Uses his own O2 concentrator at night purchased through [employer] Living Will/Advance Directive/Power of Project Administrative Assistant /Guardian: Have you reviewed your Advance Directive and is it valid for this stay?: No Advance Directive: Patient would not like information Information Provided on Healthcare Directives: No Pre-existing DNR/DNI Order: No Patient Requests Assistance: No Additional Comments: SW met w/ [facility] team to discuss pt's plan of care. Per team patient admitted with HFrEF and currentlybeing diuresed, not medically appropriate for discharge. SW met w/ patient at bedside for initial eval. Confirmed address: [address], [place]. Lives alone in a ground floor apartment. States prior to admit he was getting home health nursing via [facility], uses a cane as needed, has a LLE prosthetic, and uses 2L O2 at night via an O2 concentrator he bought off [employer] - said he has not been set up properly with an O2 supplier and says he had a CPAP in the past. PCP is Dr Erik Hurley in [place]. No POA/LW/AD established. Has Medicare Part A + [place] Medicaid. Meets 300% [employer]PG. Uses [facility] in [facility]. States he is on disability. Went to [facility] about 3 years ago after getting his LLE prosthetic. Son to transport and assist as needed at discharge. No current SW/CM needs identified, will continue to follow and assist. ANDREWS Rojo * H&P - Alfred Sandoval MD - 03/23/2023 3:43 PM EST Images from the original note were not included. INPATIENT CARDIOLOGY ([facility]) HISTORY & PHYSICAL History Of Present Illness Robert Hurley is a 57 y.o. male with significant PMH of CAD s/p PCI, HFmrEF, COPD, DM2, CAMACHO cirrhosis, and left AKA who presented to [facility] on 03/23/2023 with shortness of breath. Patient was just recently discharged from [facility] in January where he was treated for HFrEF exacerbation. More recently he presented to OSH on [address] for shortness of breath and was discharged the next morning. He now represents to after waking up early this morning with recurrent dyspnea. He denies any chest pain or discomfort, cough, fevers, chills, or other infectious symptoms. Endorsessome lower extremity swelling in his right lower leg. He was discharged from one month ago with Lasix 40mg to be taken daily. An outside provider then wrote him for Lasix 20mg on 03/15 but the patient explicitly states that he only responds to 40mg dosing. He is HDS on arrival with BP 150/93 but required intermittent BiPAP. At the time of our initial evaluation he has been weaned back to 2L NC and is in no acute respiratory distress. BNP is 35k from 30k at discharge last month but was as high as 67k at that admission. Initial troponin 206 with trend to 185; Cr 2.83 from 3.28 in January; slightly hyperkalemic with K 5.4. CXR showing SAN[place]NA pulmonary edema and small right pleural effusion. Admit to cardiology floor for further medical management. ROS: 14-point ROS obtained and negative other than what is noted in HPI. Past 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 Past 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: [...] OF STENT N/A Cath Stent Placement from [facility] CHOLECYSTECTOMY N/A Cholecystectomy from [facility] Family History family history includes Conversions - Other in his father and mother; Diabetes in his mother; Hyperlipidemia in his father; Hypertension in his father and mother; Obesity in his mother; Other cancer in his father. Social History Tobacco use: PPD Alcohol use: Denies any significant recent usage. Other: Denies any recent illicit drug use. Allergies Penicillins Home Medications Current Outpatient Medications Medication Instructions aspirin 81 mg, Oral, Daily atorvastatin (LIPITOR) 80 mg, Oral, Daily carvedilol (COREG) 12.5 mg, Oral, 2 times daily clopidogrel (PLAVIX) 75 mg, Oral, Daily entecavir (BARACLUDE) 0.5 mg, Oral, Every 72 hours furosemide (LASIX) 40 mg, Oral, Daily PRN hydrALAZINE (APRESOLINE) 50 mg, Oral, 3 times daily (0600, 1200 & 1800) isosorbide dinitrate (ISORDIL) 40 mg, Oral, 3 times daily (0600, 1200 & 1800) Levemir 13 Units, Subcutaneous, Daily nitroglycerin (NITROSTAT) 0.4 mg, Sublingual, Every 5 min PRN NovoLOG FlexPen ReliOn 5 Units, Subcutaneous, 3 times daily Umeclidinium [place] (Incruse Ellipta) 62.5 MCG/ACT aerosol powder 1 Inhalation, Inhalation, Daily OBJECTIVE Blood pressure 130/76, pulse 80, temperature 36.4 ??C (97.6 ??F), temperature source Oral, resp. rate 15, height 1.829 m (6'), weight 96 kg (211 lb 10.3 oz), SpO2 97 %. GENERAL: no acute distress, cooperative SKIN: warm and dry, no rashes, wounds, ulcers EYES: conjunctiva clear, EOMI, PERRLA ENT: intact, mucous membranes moist, no apparent injury HEAD/NECK: neck supple, no apparent injury, no cervical lymphadenopathy RESPIRATORY/THORAX: breath sounds equal, respirations non-labored, no wheezes, rales, rhonchi CARDIOVASCULAR: regular rate and rhythm, normal S1 and S2, no murmurs, pulses 2+, no edema GASTROINTESTINAL: bowel sounds normal, soft, non-tender, no hepatosplenomegaly MUSCULOSKELETAL: no joint swelling, full range of motion in all extremities NEUROLOGICAL: CN II-IX intact grossly, interactive and normal tone PSYCHOLOGICAL: Alert & Oriented x4, appropriate mood and behavior Results / Imaging CBC: Lab Results Component Value Date WBC 5.74 03/23/2023 HGB 11.1 (L) 03/23/2023 HCT 35.0 (L) 03/23/2023 PLT 234 03/23/2023 MCV 89 03/23/2023 MCH 28.1 03/23/2023 MCHC 31.7 03/23/2023 RDW 13.8 03/23/2023 NRBC 0.0 03/23/2023 Differential: Lab Results Component Value Date WBC 5.74 03/23/2023 NEUTOPHILPCT 84.0 03/23/2023 LYMPHOPCT 13.0 03/23/2023 MONOPCT 2.0 03/23/2023 EOSPCT 0.0 03/23/2023 NEUTROABS 4.79 03/23/2023 Coagulation: Lab Results Component Value Date INR 1.1 03/23/2023 Renal: Lab Results Component Value Date NA 138 03/23/2023 K 5.4 (H) 03/23/2023 CL 100 03/23/2023 CO2 28 03/23/2023 BUN 63 (H) 03/23/2023 CREATININE 2.83 (H) 03/23/2023 GLUCOSE 269 (H) 03/23/2023 CALCIUM 9.1 03/23/2023 MG 2.1 03/23/2023 PHOS 4.8 (H) 03/23/2023 Liver: Lab Results Component Value Date AST 49 03/23/2023 ALT 26 03/23/2023 BILITOT 0.7 03/23/2023 Glucose: Lab Results Component Value Date PGLU 238 (H) 03/23/2023 Lab Results Component Value Date HGBA1C 6.6 (H) 02/03/2023 Most recent Echocardiogram (02/10/23): Left Ventricle: The left ventricle is not [...] trileaflet. The left, right and non-coronary cusps arecalcified. There is no aortic valve vegetation. There is mild aortic valve regurgitation with a centrally directed jet. There is no hemodynamically significant valvular aortic stenosis. Pericardium: No pericardial effusion. There is no recent study available for direct seaw-hh-osub comparison. ECG/Telemetry: NSR with LVH and repolarization abnormality ASSESSMENT/PLAN Robert Hurley is a 57 y.o. male with significant PMH of CAD s/p PCI, HFmrEF, COPD, DM2, CAMACHO cirrhosis, and left AKA who presented to [facility] on 03/23/2023 with shortness of breath. #Acute on chronic HFrEF exacerbation #Acute hypoxic respiratory failure - EDD from 02/10 showing EF 40-45%; TTE 02/04 had previously shown EF 32% - Recurrent HF admission including Nov to [facility] and earlier this week to OSH - Requiring BiPAP on arrival, now weaned to 2L NC; HDS - BNP 35k and CXR with pulmonary edema and small right pleural effusion - On 2L nocturnal oxygen at home, currently stable on 2L here - Deferred SGLT2, losartan, spironolactone at last discharge due to renal funciton PLAN - Begin diuresis with IV Lasix 40mg - Continue afterload reduction with hydralazine 50mg and Isordil 40mg TID - Continue home Coreg 12.5mg BID - 2g Na and 1.5L fluid restrictions - Strict I/O's, daily weights - Wean oxygen as able #Coronary artery disease w/ concern for recent NSTEMI - Treated medically for NSTEMI at Nov hospitalization, was outside window for cath - Continue with DAPT therapy with ASA/Plavix - Atorvastatin 80mg #Hypertension - Hydralazine 50mg and Isordil 40mg TID - Coreg 12.5mg #Type 2 diabetes - Last A1c 6.6%, BG 269 on arrival - Continue long acting insulin 13u QH and Lispro 5u TID w/ meals - Continue gabapentin 600mg TID for neuropathy #Chronic kidney disease - Admission Cr 2.83 from 3.28 last month F: PO E: monitor and replete PRN N: Cardiac diet DVT ppx: SQH Code Status: Full Dispo: Admit to [facility] Alfred Sandoval MD Internal Medicine (PGY-1) Cosigned by Jerel Robertson DO at 03/24/2023 4:29 PM EST Associated attestation - Jerel Robertson DO - 03/24/2023 4:29 PM EST I saw and evaluated the patient with the resident/fellow. I discussed the case with the resident/fellow and agree with the findings and plan as documented. 57-year-old gentleman with known heart failure and recent admission to cardiology service presents with acute on chronic shortness of breath after diuretics were decreased as an outpatient. Feeling significantly improved with IV diuresis. * ED Provider Notes - Rohit Fitzpatrick, DO - 03/23/2023 9:10 AM EST Images from the original note were not included. - HPI Chief Complaint Patient presents with Shortness of Breath This is a 57-year-old male with history of CHF and COPD who presents with shortness a breath. Started earlier this morning. Happened suddenly. Called EMS and they found him 50% on room air. Taken to his local emergency department. Her review, appears to be volume overload. Placed on BiPAP pain and given nitro. No fever or chills. No cough. Mariela Coma Scale Score: 15 Patient History Past 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: Diagnosis Date [...] OF STENT N/A Cath Stent Placement from [facility] CHOLECYSTECTOMY N/A Cholecystectomy from [facility] Family History Problem Relation Name Age of [...] No drug use Immunization History Immunization History: not reviewed Allergies: Allergies Allergen Reactions Penicillins Shortness of breath Patient received 1g of ceftriaxone at OSH and had no issues Review of Systems Review of Systems All other systems reviewed and are negative. Physical Exam ED Triage Vitals Temp Heart Rate Resp BP 03/23/23 0917 03/23/2391603/23/2391603/23/23916 36.6 ??C (97.8 ??F) 93 12 (!) 150/93 SpO2 Temp Source Heart Rate Source Patient Position 03/23/2391603/23/2391603/23/2391603/23/23916 96 % Oral Monitor Lying BP Location FiO2 (%) 03/23/2391603/23/23927 Left arm 50 % Physical Exam Vitals reviewed. Constitutional: General: He is in acute distress. Appearance: He is not toxic-appearing. HENT: Head: Normocephalic and atraumatic. Mouth/Throat: Mouth: Mucous membranes are moist. Pharynx: Oropharynx is clear. Eyes: Extraocular Movements: Extraocular movements intact. Cardiovascular: Rate and Rhythm: Normal rate. Pulmonary: Effort: Pulmonary effort is normal. Breath sounds: Rales present. Abdominal: Palpations: Abdomen is soft. Musculoskeletal: General: No swelling. Cervical back: Neck supple. Skin: General: Skin is warm and dry. Capillary Refill: Capillary refill takes less than 2 seconds. Neurological: General: No focal deficit present. Mental Status: He is oriented to person, place, and time. Sensory: No sensory deficit. Motor: No weakness. ED Course & MDM ED Course as of 03/24/23707Mar 23, 2023 1301 Immature Granulocyte Absolute: 0.04 [JA] ED Course User Index [JA] Rohit Fitzpatrick, DO Clinical Impressions as of 03/24/23707 Acute on chronic congestive heart failure, unspecified heart failure type (CMS/HCC) - Medical Decision Making This patient was seen and staffed with ED attending, Dr. Marlow. In summary, this is a 57 y.o. male presenting for evaluation of Shortness of Breath. Patient arrived hemodynamically stable. Exam notable for above. Based on his history and physical exam, my differential diagnosis included CHF exacerbation, ACS, COPD exacerbation. Ruling out the most morbid conditions drove my clinical assessment. Given this, workup included above. Therapy included BiPAP. It should be noted that his chronic conditions includes CHF, which currently is not at goal therapy. This complicates his clinical picture because it may be exacerbating symptoms. Additional history was provided by EMS I reviewed prior records including his note prior to transfer which documented initiation of BiPAP and nitro paste. On reassessment, patient feeling better. Is not requiring BiPAP for oxygenation. He is quite comfortable. He did have B-lines and diminished EF on bedside ultrasound. Symptoms and physical consistentwith CHF exacerbation. BNP 96455. Troponin elevated with significant delta. He does have some lateral ST depression. He has not having any chest pain and no shortness a breath he states is feeling much better. I do not think this is a heart attack or a type 1 NSTEMI. Believe this is likely demand ischemia. I reviewed his chest x-ray which does show pulmonary edema. I consulted and had an interactive discussion with Cardiology who agreed to accept to their service. ED Prescriptions None Disposition Admit Admitting/Attending Physician: JEREL ROBERTSON [[id number]] Provider Care Team: CAR FLOOR/OBSERVATION [33] Are they the primary team?: Yes [1] Sign Off Checklist Clinical Impression: Complete ED Disposition: Complete - Rohit Fitzpatrick DO Resident 03/24/23 0708 Cosigned by Amrit Marlow MD at 03/24/2023 8:46 AM EST Associated attestation - Amrit Marlow MD - 03/24/2023 8:46 AM EST I saw and evaluated the patient with the resident/fellow. I discussed the case with the resident/fellow and agree with the findings and plan as documented. * ED Triage Notes - Bridget Aguirre RN - 03/23/2023 9:10 AM EST Presented to OSH for sudden onset of SOA at 0300. Hx of COPD, CHF, HTN. Has had similar episodes inpast. Elevated D-dimer at OSH. Denies CP, edema, weight gain. documented in this encounter Plan of Treatment Upcoming Encounters Date Type Department Care Team (Late st Contact Info) Description 03/07/2024 1:40 PM EST Office Visit [facility] [address], [address] [place] [address] Naeem Blunt MD [address] [place] [address] Scheduled Orders Name Type Priority Associated Diagnoses Orde r Schedule Overnight Polysomnography (Sleep Study) - Outside Facility Procedures Routine ALEXANDRE (obstructive sleep apnea) 1 Occurrences starting 03/25/2023 until 03/25/2024 Scheduled Referrals Name Type Priority Associated Diagnoses Orde r Schedule Discharge Ambulatory referral to NON [facility] Out[facility] Referral Routine Acute on chronic congestive heart failure, unspecified heart failure type (CMS/HCC) Expected: 03/26/2023, Expires: 09/23/2024 documented as of this encounter Procedures Procedure Name Priority Date/Time Associated Diagnosis Comments POCT GLUCOSE METER UNSOLICITED RESULTS Routine 03/25/2023 12:35 PM EST POCT GLUCOSE METER UNSOLICITED RESULTS Routine 03/25/2023 9:02 AM EST CBC W/O DIFFERENTIAL Routine 03/25/2023 5:02 AM EST MAGNESIUM, PLASMA Routine 03/25/2023 5:0 2 AM EST BASIC METABOLIC PANEL, PLASMA Routine 03/25/2023 5:02 AM EST POCT GLUCOSE METER UNSOLICITED RESULTS Routine 03/24/2023 8:21 PM EST POCT GLUCOSE METER UNSOLICITED RESULTS Routine 03/24/2023 5:17 PM EST WOUND OSTOMY EVAL AND TREAT Routine 03/24/2023 12:47 PM EST POCT GLUCOSE METER UNSOLICITED RESULTS Routine 03/24/2023 12:04 PM EST FERRITIN, SERUM Routine 03/24/2023 9:26 AM EST VITAMIN B12, SERUM Add-On 03/24/2023 9: 26 AM EST POCT GLUCOSE METER UNSOLICITED RESULTS Routine 03/24/2023 8:25 AM EST NON-INVASIVE VENTILATION Routine 03/24/2023 8:00 AM EST POCT GLUCOSE METER UNSOLICITED RESULTS Routine 03/24/2023 3:20 AM EST IRON & TOTAL IRON BINDING CAPACITY, PLASMA (INCLUDES TRANSFERRIN) Add-On 03/24/2023 3:08 AM EST CBC W/O DIFFERENTIAL Routine 03/24/2023 3:08 AM EST MAGNESIUM, PLASMA Routine 03/24/2023 3:0 8 AM EST BASIC METABOLIC PANEL, PLASMA Routine 03/24/2023 3:08 AM EST POCT GLUCOSE METER UNSOLICITED RESULTS Routine 03/23/2023 8:47 PM EST MULTI DRUG RESISTANCE TEST Routine 03/23/2023 8:13 PM EST NON-INVASIVE VENTILATION Routine 03/23/2023 8:00 PM EST POCT GLUCOSE METER UNSOLICITED RESULTS Routine 03/23/2023 4:55 PM EST TROPONIN T, HIGH SENSITIVITY, 2 HOUR, PLASMA Timed 03/23/2023 11:34 AM EST ECG ADULT STAT 03/23/2023 10:46 AM EST ECG ADULT STAT 03/23/2023 9:57 AM EST XR CHEST 1 VIEW STAT 03/23/2023 9:38 AM EST TROPONIN T, HIGH SENSITIVITY, 0 HOUR, PLASMA, REFLEX TO 2 HOUR STAT 03/23/2023 9:29 AM EST D DIMER, QUANTITATIVE STAT Add-on 03/23/2023 9:29 AM EST N-TERMINAL PROBNP, PLASMA STAT 03/23/2023 9:29 AM EST PROTHROMBIN TIME(PT) / INR STAT 03/23/2023 9:29 AM EST CBC WITH AUTO DIFFERENTIAL STAT 03/23/2023 9:29 AM EST PHOSPHORUS, PLASMA STAT 03/23/2023 9: 29 AM EST MAGNESIUM, PLASMA STAT 03/23/2023 9:2 9 AM EST BLOOD GAS PANEL, VENOUS STAT 03/23/2023 9:29 AM EST COMPREHENSIVE METABOLIC PANEL, PLASMA STAT 03/23/2023 9:29 AM EST NON-INVASIVE VENTILATION Routine 03/23/2023 9:23 AM EST NON-INVASIVE VENTILATION Routine 03/23/2023 9:23 AM EST NON-INVASIVE VENTILATION Routine 03/23/2023 9:23 AM EST POCT GLUCOSE METER UNSOLICITED RESULTS Routine 03/23/2023 9:16 AM EST documented in this encounter Results * POCT glucose meter (03/25/2023 12:35 PM EST) POCT Glucose 99 74 - 99 mg/dL 03/25/2023 12:36 PM EST [facility] Comment:Accuracy of a glucos e result obtained from a capillary whole blood specimen relies upon adequate, non-compromised capillary blood flow. If the capillary glucose result is not consistent with the patient's clinical signs and symptoms, glucose testing should be repeated with either an arterial or venous sample on the glucometer or sent to the main labortory for testing. Comment 03/25/2023 12:36 PM EST [facility] Certified Dental Assistant ID Holly Parsons 03/25/2023 12:36 PM EST [facility] Device ID [id number] 03/25/2023 12:36 PM EST [facility] Specimen Type POC Capillary 03/25/2023 12:36 PM EST [facility] Blood Capillary blood specimen / Unknown 03/25/2023 12:35 PM EST 03/25/2023 12:36 PM EST Jerel Robertson DO LAB POINT OF CARE TE ST DOCKED DEVICE UNSOLICITED RESULTS Final Result Performing Organization Address City/[facility] Co de Phone Number [facility] [address] [place] [address] * (ABNORMAL) POCT glucose meter (03/25/2023 9:02 AM EST) POCT Glucose 178(H) 74 - 99 mg/dL 03/25/2023 9:04 AM EST [facility] Comment:Accuracy of [...] to the main labortory for testing. Comment 03/25/2023 9:04 AM EST [facility] Certified Dental Assistant ID Holly Parsons 03/25/2023 9:04 AM EST [facility] Device ID [id number] 03/25/2023 9:04 AM EST [facility] Specimen Type POC Capillary 03/25/2023 9:04 AM EST [facility] Blood Capillary blood specimen / Unknown 03/25/2023 9:02 AM EST 03/25/2023 9:04 AM EST us Jerel Robertson DO LAB POINT OF CARE TE ST DOCKED DEVICE UNSOLICITED RESULTS Final Result Performing Organization Address City/[facility] Co de Phone Number [facility] [address] [place] [address] * Magnesium (03/25/2023 5:02 AM EST) Magnesium, Plasma 2.3 1.9 - 2.4 mg/dL 03/25/2023 5:47 AM EST [facility] Blood Venous blood specimen / Unknown Venipuncture / Unknown 03/25/2023 5:02 AM EST 03/25/2023 5:15 AM EST us Jerel Robertson DO LAB BLOOD ORDERABLES Final R esult [facility] [address] [place] [address] * (ABNORMAL) CBC (03/25/2023 5:02 AM EST) WBC Count 5.48 3.70 - 10.30 10*3/uL LAB HEMATOLOGY METHOD 03/25/2023 5:55 AM EST [facility] RBC Count 3.30(L) 4.60 - 6.10 10*6/uL LAB HEMATOLOGY METHOD 03/25/2023 5:55 AM EST [facility] HGB 9.2(L) 13.7 - 17.5 g/dL LAB HEMATOLOGY METHOD 03/25/2023 5:55 AM EST [facility] HCT 29.2(L) 40.0 - 51.0 % LAB HEMATOLOGY METHOD 03/25/2023 5:55 AM EST [facility] Platelet Count 179 155 - 369 10*3/uL LAB HEMATOLOGY METHOD 03/25/2023 5:55 AM EST [facility] MCV 89 79 - 98 fL LAB HEMATOLOGY METHOD 03/25/2023 5:55 AM EST [facility] MCH 27.9 26.0 - 32.0 pg LAB HEMATOLOGY METHOD 03/25/2023 5:55 AM EST [facility] MCHC 31.5 30.7 - 35.5 g/dL LAB HEMATOLOGY METHOD 03/25/2023 5:55 AM EST [facility] RDW 13.6 11.5 - 14.5 % LAB HEMATOLOGY METHOD 03/25/2023 5:55 AM EST [facility] MPV 11.7 8.8 - 12.5 fL LAB HEMATOLOGY METHOD 03/25/2023 5:55 AM EST [facility] nRBC 0.0 <=0.0 per 100 WBCs LAB HEMATOLOGY METHOD 03/25/2023 5:55 AM EST [facility] Blood Venous blood specimen / Unknown Venipuncture / Unknown 03/25/2023 5:02 AM EST 03/25/2023 5:45 AM EST us Jerel Robertson DO LAB BLOOD ORDERABLES Final R esult [facility] [address] [place] [address] * (ABNORMAL) Basic metabolic panel (03/25/2023 5:02 AM EST) Glucose, Plasma 194(H) 74 - 99 mg/dL 03/25/2023 5:47 AM EST [facility] BUN, Plasma 77(H) 7 - 21 mg/dL 03/25/2023 5:47 AM EST [facility] Creatinine, Plasma 2.98(H) 0.80 - 1.30 mg/dL 03/25/2023 5:47 AM EST [facility] BUN/Creatinine Ratio 26 03/25/2023 5:47 AM EST [facility] Sodium, Plasma 136 136 - 145 mmol/L 03/25/2023 5:47 AM EST [facility] Potassium, Plasma 4.3 3.7 - 4.8 mmol/L 03/25/2023 5:47 AM EST [facility] Chloride, Plasma 99 97 - 107 mmol/L 03/25/2023 5:47 AM EST [facility] CO2, Plasma 26 22 - 29 mmol/L 03/25/2023 5:47 AM EST [facility] Anion Gap 11 6 - 16 mmol/L 03/25/2023 5:47 AM EST [facility] Total Calcium, Plasma 8.7(L) 8.9 - 10.2 mg/dL 03/25/2023 5:47 AM EST [facility] eGFRcr 24.0 mL/min/1.7 3m*2 03/25/2023 5:47 AM EST [facility] Comment:Reported eGFRcr in m L/min/1.73m2 is based the CKD-EPI 2020 equation that does not use a race coefficient. Blood Venous blood specimen / Unknown Venipuncture / Unknown 03/25/2023 5:02 AM EST 03/25/2023 5:15 AM EST us Jerel Robertson DO LAB BLOOD ORDERABLES Final R esult [facility] [address] [place] [address] * (ABNORMAL) POCT glucose meter (03/24/2023 8:21 PM EST) [facility] POCT Glucose 248(H) 74 - 99 mg/dL 03/24/2023 8:23 PM EST [facility] Comment:Accuracy of [...] to the main labortory for testing. Comment 03/24/2023 8:23 PM EST [facility] Certified Dental Assistant ID Macrina Landa 8:23 PM EST [facility] Device ID [id number] 03/24/2023 8:23 PM EST [facility] Specimen Type POC Capillary 03/24/2023 8:23 PM EST [facility] Blood Capillary blood specimen / Unknown 03/24/2023 8:21 PM EST 03/24/2023 8:23 PM EST us Jerel Robertson DO LAB POINT OF CARE TE ST DOCKED DEVICE UNSOLICITED RESULTS Final Result Performing Organization Address City/State/[facility] Co de Phone Number [facility] [address] [place] [address] * (ABNORMAL) POCT glucose meter (03/24/2023 5:17 PM EST) [facility] POCT Glucose 159(H) 74 - 99 mg/dL 03/24/2023 5:18 PM EST [facility] Comment:Accuracy of [...] to the main labortory for testing. Comment 03/24/2023 5:18 PM EST [facility] Certified Dental Assistant ID Holly Parsons 03/24/2023 5:18 PM EST [facility] Device ID [id number] 03/24/2023 5:18 PM EST [facility] Specimen Type POC Capillary 03/24/2023 5:18 PM EST [facility] Blood Capillary blood specimen / Unknown 03/24/2023 5:17 PM EST 03/24/2023 5:18 PM EST Jerel Robertson DO LAB POINT OF CARE TE ST DOCKED DEVICE UNSOLICITED RESULTS Final Result Performing Organization Address [facility] de Phone Number [facility] [address] [place] [address] * (ABNORMAL) POCT glucose meter (03/24/2023 12:04 PM EST) POCT Glucose 302(H) 74 - 99 mg/dL 03/24/2023 12:05 PM EST [facility] Comment:Accuracy of [...] to the main labortory for testing. Comment 03/24/2023 12:05 PM EST [facility] Certified Dental Assistant ID Holly Parsons 03/24/2023 12:05 PM EST [facility] Device ID [id number] 03/24/2023 12:05 PM EST [facility] Specimen Type POC Capillary 03/24/2023 12:05 PM EST [facility] Blood Capillary blood specimen / Unknown 03/24/2023 12:04 PM EST 03/24/2023 12:05 PM EST us Jerel Robertson DO LAB POINT OF CARE TE ST DOCKED DEVICE UNSOLICITED RESULTS Final Result Performing Organization Address City/[facility] Co de Phone Number [facility] [address] [place] [address] * Vitamin B12 (03/24/2023 9:26 AM EST) Vitamin B12, Serum 513 210 - 1,033 pg/mL 03/25/2023 8:33 AM EST [facility] Blood Venous blood specimen / Unknown Venipuncture / Unknown 03/24/2023 9:26 AM EST 03/24/2023 9:42 AM EST us Jerel Robertson DO LAB BLOOD ORDERABLES Final R esult Performing Organization Address City/[facility]/ZIP Co de Phone Number [facility] [address] [place] [address] * Ferritin (03/24/2023 9:26 AM EST) Pathologist [facility] Ferritin, Serum 165 20 - 400 ng/mL 03/24/2023 10:21 AM EST [facility] Blood Venous blood specimen / Unknown Venipuncture / Unknown 03/24/2023 9:26 AM EST 03/24/2023 9:42 AM EST us Jerel Robertson DO LAB BLOOD ORDERABLES Final R esult Performing Organization Address [facility] de Phone Number [facility] [address] [place] [address] * (ABNORMAL) POCT glucose meter (03/24/2023 8:25 AM EST) [facility] POCT Glucose 226(H) 74 - 99 mg/dL 03/24/2023 8:26 AM EST [facility] Comment:Accuracy of a glucos e result obtained from a capillary whole blood specimen relies upon adequate, non-compromised capillary blood flow. If the capillary glucose result is not consistent with the patient's clinical signs and symptoms, glucose testing should be repeated with either an arterial or venous sample on the glucometer or sent to the main labortory for testing. Comment 03/24/2023 8:26 AM EST [facility] Certified Dental Assistant ID Holly Parsons 03/24/2023 8:26 AM EST [facility] Device ID [id number] 03/24/2023 8:26 AM EST [facility] Specimen Type POC Capillary 03/24/2023 8:26 AM EST [facility] Blood Capillary blood specimen / Unknown 03/24/2023 8:25 AM EST 03/24/2023 8:26 AM EST us Jerel Robertson DO LAB POINT OF CARE TE ST DOCKED DEVICE UNSOLICITED RESULTS Final Result Performing Organization Address City/[facility] Co de Phone Number [facility] [address] [place] [address] * (ABNORMAL) POCT glucose meter (03/24/2023 3:20 AM EST) POCT Glucose 260(H) 74 - 99 mg/dL 03/24/2023 3:23 AM EST [facility] Comment:Accuracy of a glucos e result obtained from a capillary whole blood specimen relies upon adequate, non-compromised capillary blood flow. If the capillary glucose result is not consistent with the patient's clinical signs and symptoms, glucose testing should be repeated with either an arterial or venous sample on the glucometer or sent to the main labortory for testing. Comment 03/24/2023 3:23 AM EST [facility] Certified Dental Assistant ID Cristina Bailon 3:23 AM EST [facility] Device ID [id number] 03/24/2023 3:23 AM EST [facility] Specimen Type POC Capillary 03/24/2023 3:23 AM EST [facility] Blood Capillary blood specimen / Unknown 03/24/2023 3:20 AM EST 03/24/2023 3:23 AM EST us Jerel Robertson DO LAB POINT OF CARE TE ST DOCKED DEVICE UNSOLICITED RESULTS Final Result Performing Organization Address City/State/[facility] Co de Phone Number [facility] [address] [place] [address] * (ABNORMAL) Iron & Total Iron Binding Capacity, Plasma (Includes Transferrin) (03/24/2023 3:08 AM EST) Iron, Plasma 48(L) 50 - 170 ug/dL 03/24/2023 9:15 AM EST [facility] Transferrin, Plasma 164(L) 200 - 360 mg/dL 03/24/2023 9:15 AM EST [facility] Total Iron Binding Capacity, Plasma 205(L) 240 - 450 ug/mL 03/24/2023 9:15 AM EST [facility] Transferrin Saturation 23 14 - 50 % 03/24/2023 9:15 AM EST [facility] Blood Venous blood specimen / Unknown Venipuncture / Unknown 03/24/2023 3:08 AM EST 03/24/2023 3:12 AM EST us Jerel Robertson DO LAB BLOOD ORDERABLES Final R esult [facility] [address] [place] [address] * Magnesium (03/24/2023 3:08 AM EST) Magnesium, Plasma 2.3 1.9 - 2.4 mg/dL 03/24/2023 3:41 AM EST [facility] Blood Venous blood specimen / Unknown Venipuncture / Unknown 03/24/2023 3:08 AM EST 03/24/2023 3:12 AM EST Jerel Robertson LAB BLOOD ORDERABLES Final R esult Performing Organization Address City/[facility]/ZIP Co de Phone Number [facility] [address] [place] [address] * (ABNORMAL) CBC (03/24/2023 3:08 AM EST) WBC Count 6.91 3.70 - 10.30 10*3/uL LAB HEMATOLOGY METHOD 03/24/2023 3:20 AM EST [facility] RBC Count 3.13(L) 4.60 - 6.10 10*6/uL LAB HEMATOLOGY METHOD 03/24/2023 3:20 AM EST [facility] HGB 8.8(L) 13.7 - 17.5 g/dL LAB HEMATOLOGY METHOD 03/24/2023 3:20 AM EST [facility] HCT 27.4(L) 40.0 - 51.0 % LAB HEMATOLOGY METHOD 03/24/2023 3:20 AM EST [facility] Platelet Count 193 155 - 369 10*3/uL LAB HEMATOLOGY METHOD 03/24/2023 3:20 AM EST [facility] MCV 88 79 - 98 fL LAB HEMATOLOGY METHOD 03/24/2023 3:20 AM EST [facility] MCH 28.1 26.0 - 32.0 pg LAB HEMATOLOGY METHOD 03/24/2023 3:20 AM EST [facility] MCHC 32.1 30.7 - 35.5 g/dL LAB HEMATOLOGY METHOD 03/24/2023 3:20 AM EST [facility] RDW 13.6 11.5 - 14.5 % LAB HEMATOLOGY METHOD 03/24/2023 3:20 AM EST [facility] MPV 11.8 8.8 - 12.5 fL LAB HEMATOLOGY METHOD 03/24/2023 3:20 AM EST [facility] nRBC 0.0 <=0.0 per 100 WBCs LAB HEMATOLOGY METHOD 03/24/2023 3:20 AM EST [facility] Blood Venous blood specimen / Unknown Venipuncture / Unknown 03/24/2023 3:08 AM EST 03/24/2023 3:12 AM EST us Jerel Robertson DO LAB BLOOD ORDERABLES Final R esult [facility] [address] [place] [address] * (ABNORMAL) Basic metabolic panel (03/24/2023 3:08 AM EST) Glucose, Plasma 298(H) 74 - 99 mg/dL 03/24/2023 3:41 AM EST [facility] BUN, Plasma 76(H) 7 - 21 mg/dL 03/24/2023 3:41 AM EST [facility] Creatinine, Plasma 2.99(H) 0.80 - 1.30 mg/dL 03/24/2023 3:41 AM EST [facility] BUN/Creatinine Ratio 25 03/24/2023 3:41 AM EST [facility] Sodium, Plasma 139 136 - 145 mmol/L 03/24/2023 3:41 AM EST [facility] Potassium, Plasma 5.1(H) 3.7 - 4.8 mmol/L 03/24/2023 3:41 AM EST [facility] Chloride, Plasma 101 97 - 107 mmol/L 03/24/2023 3:41 AM EST [facility] CO2, Plasma 26 22 - 29 mmol/L 03/24/2023 3:41 AM EST [facility] Anion Gap 12 6 - 16 mmol/L 03/24/2023 3:41 AM EST [facility] Total Calcium, Plasma 8.5(L) 8.9 - 10.2 mg/dL 03/24/2023 3:41 AM EST [facility] eGFRcr 23.9 mL/min/1.7 3m*2 03/24/2023 3:41 AM EST [facility] Comment:Reported eGFRcr in m L/min/1.73m2 is based the CKD-EPI 2020 equation that does not use a race coefficient. Blood Venous blood specimen / Unknown Venipuncture / Unknown 03/24/2023 3:08 AM EST 03/24/2023 3:12 AM EST Jerel Robertson DO LAB BLOOD ORDERABLES Final R esult Performing Organization Address City/[facility] Co de Phone Number [facility] [address] [place] [address] * (ABNORMAL) POCT glucose meter (03/23/2023 8:47 PM EST) POCT Glucose 460(H) 74 - 99 mg/dL 03/23/2023 8:50 PM EST [facility] Comment:Accuracy of a glucos e result obtained from a capillary whole blood specimen relies upon adequate, non-compromised capillary blood flow. If the capillary glucose result is not consistent with the patient's clinical signs and symptoms, glucose testing should be repeated with either an arterial or venous sample on the glucometer or sent to the main labortory for testing. Comment 03/23/2023 8:50 PM EST [facility] Certified Dental Assistant ID Cammie Hernandez 03/23/2023 8:50 PM EST [facility] Device ID [id number] 03/23/2023 8:50 PM EST [facility] Specimen Type POC Capillary 03/23/2023 8:50 PM EST [facility] Blood Capillary blood specimen / Unknown 03/23/2023 8:47 PM EST 03/23/2023 8:50 PM EST Jerel Robertson DO LAB POINT OF CARE TE ST DOCKED DEVICE UNSOLICITED RESULTS Final Result Performing Organization Address City/[facility] Co de Phone Number HEALTHCARE LAB [address] [place] [address] * Multi Drug Resistance Test (03/23/2023 8:13 PM EST) Culture No Multi Drug Resistant Organisms Isolated 03/25/2023 6:45 AM EST [facility] Swab (Nares and Josefina Rectal) Non-blood Collection / Unknown 03/23/2023 8:13 PM EST 03/23/2023 8:30 PM EST us Jerel Robertson DO LAB MICROBIOLOGY - GENERAL O RDERABLES Final Result Performing Organization Address [facility] de Phone Number [facility] [address] [place] [address] * (ABNORMAL) POCT glucose meter (03/23/2023 4:55 PM EST) Pathologist [facility] POCT Glucose 434(H) 74 - 99 mg/dL 03/23/2023 4:56 PM EST [facility] Comment:Accuracy of a glucos e result obtained from a capillary whole blood specimen relies upon adequate, non-compromised capillary blood flow. If the capillary glucose result is not consistent with the patient's clinical signs and symptoms, glucose testing should be repeated with either an arterial or venous sample on the glucometer or sent to the main labortory for testing. Comment 03/23/2023 4:56 PM EST [facility] Certified Dental Assistant ID Bisi Hurley 03/23/2023 4:56 PM EST [facility] Device ID [id number] 03/23/2023 4:56 PM EST [facility] Specimen Type POC Capillary 03/23/2023 4:56 PM EST [facility] Blood Capillary blood specimen / Unknown 03/23/2023 4:55 PM EST 03/23/2023 4:56 PM EST us Jerel Robertson DO LAB POINT OF CARE TE ST DOCKED DEVICE UNSOLICITED RESULTS Final Result Performing Organization Address [facility] de Phone Number [facility] [address] [place] [address] * (ABNORMAL) Troponin T, High Sensitivity, 2 Hour, Plasma (03/23/2023 11:34 AM EST) [facility] Troponin T, High Sensitivity, 2 Hour 185(H) <19 ng/L 03/23/2023 11:58 AM EST [facility] Troponin Delta 21(H) <10 ng/L 03/23/2023 11:58 AM EST [facility] Troponin Delta Interpretation Significant 03/23/2023 11:58 AM EST [facility] Comment:Significant change i n Troponin observed [...] blood specimen / Unknown Venipuncture / Unknown 03/23/2023 11:34 AM EST 03/23/2023 11:38 AM EST us Amrit Marlow MD LAB BLOOD ORDERABLES Final Result Performing Organization Address City/[facility]/ZIP Co de Phone Number [facility] [address] [place] [id number] * EKG now - STAT (adult) (03/23/2023 10:46 AM EST) EKG DIAGNOSIS CLASS Abnormal MUSE ECG Ventricular Rate 73 BPM MUSE ECG Atrial Rate 73 BPM MUSE ECG DE Interval 140 ms MUSE ECG QRSD Interval 102 ms MUSE ECG QT Interval 416 ms MUSE ECG QTC Interval 458 ms MUSE ECG P [place] 42 degrees MUSE ECG R [place] -6 degrees MUSE ECG T Wave [place] 190 degrees MUSE ECG Diagnosis Normal sinus rhythm MUSE ECG Diagnosis Left ventricular hypertrophy MUSE ECG Diagnosis with repolarization abnormality MUSE ECG Diagnosis ( MUSE ECG Diagnosis [place] product MUSE ECG Diagnosis ) MUSE ECG Diagnosis Abnormal ECG MUSE ECG Diagnosis Confirmed by Zia Bradford ([id number]) on 03/23/2023 11:49:40 AM MUSE ECG 03/23/2023 10:4 6 AM EST 03/23/2023 11:49 AM EST us Amrit Marlow MD ECG ORDERABLES Final Resul t MUSE ECG * EKG now - STAT (adult) (03/23/2023 9:57 AM EST) EKG DIAGNOSIS CLASS Abnormal MUSE ECG Ventricular Rate 75 BPM MUSE ECG Atrial Rate 75 BPM MUSE ECG DE Interval 144 ms MUSE ECG QRSD Interval 100 ms MUSE ECG QT Interval 414 ms MUSE ECG QTC Interval 462 ms MUSE ECG P [place] 49 degrees MUSE ECG R [place] -9 degrees MUSE ECG T Wave [place] 198 degrees MUSE ECG Diagnosis Normal sinus rhythm MUSE ECG Diagnosis Left ventricular hypertrophy MUSE ECG Diagnosis with repolarization abnormality MUSE ECG Diagnosis ( MUSE ECG Diagnosis [place] product MUSE ECG Diagnosis ) MUSE ECG Diagnosis Abnormal ECG MUSE ECG Diagnosis Confirmed by Zia Bradford ([id number]) on 03/23/2023 10:31:04 AM MUSE ECG 03/23/2023 9:57 AM EST 03/23/2023 10:31 AM EST us Amrit Marlow MD ECG ORDERABLES Final Resul t MUSE ECG * XR Chest 1 View (03/23/2023 9:38 AM EST) Anatomical Region Laterality Modality Chest Digital Radiogra phy Impressions 03/23/2023 9:53 AM EST Bilateral lower lobe predominant opacities which could represent multifocal infection versus pulmonary edema. Blunting of the right costophrenic angle consistent with small pulmonary effusion. CRITICAL RESULT: ?? No. COMMUNICATION: Per this written report. Preliminary report signed by Chito Scruggs DO on 03/23/2023 9:50 AM By electronically signing this report, I, the attending physician, attest that I have personally reviewed the images/data for the above examination(s) and agree with the final edited report. Drafted by Chito Scruggs DO on 03/23/2023 9:39 AM Final report signed by Gurinder Ortiz MD on 03/23/2023 9:53 AM Narrative 03/23/2023 9:53 AM EST CLINICAL INDICATION: soa TECHNIQUE: XR CHEST 1 VIEW COMPARISON: February 04, 2023. March 23, 2023 from outside institution. FINDINGS: Bilateral lower lobe predominant opacities. Elevation of left hemidiaphragm. Heart and mediastinal contours are within normal limits. No pneumothorax. Blunting of the right costophrenic angle. Bony structures are unremarkable. Procedure Note Gurinder Ortiz MD - 03/23/2023 CLINICAL INDICATION: soa TECHNIQUE: XR CHEST 1 VIEW COMPARISON: February 04, 2023. March 23, 2023 from outside institution. FINDINGS: Bilateral lower lobe predominant opacities. Elevation of lefthemidiaphragm. Heart and mediastinal contours are within normal limits. Nopneumothorax. Blunting of the right costophrenic angle. Bony structuresare unremarkable. IMPRESSION: Bilateral lower lobe predominant opacities which could representmultifocal infection versus pulmonary edema. Blunting of the right costophrenic angle consistent with small pulmonaryeffusion. CRITICAL RESULT: No. COMMUNICATION: Per this written report. Preliminary report signed by Chito Scruggs DO on 03/23/2023 9:50 AM By electronically signing this report, I, the attending physician, attestthat I have personally reviewed the images/data for the aboveexamination(s) and agree with the final edited report. Drafted by Chito Scruggs DO on 03/23/2023 9:39 AM Final report signed by Gurinder Ortiz MD on 03/23/2023 9:53 AM Amrit Marlow MD IMG XR PROCEDURES Final Res ult * (ABNORMAL) D-Dimer, Quantitative (03/23/2023 9:29 AM EST) D Dimer, Quantitative 3.01(H) <0.50 ug/mL FEU 03/23/2023 11:23 AM EST [facility] Blood Venous blood specimen / Unknown Venipuncture / Unknown 03/23/2023 9:29 AM EST 03/23/2023 9:32 AM EST Narrative [facility] - 03/23/2023 11:23 AM EST Test performed by [facility] D-dimer assay. Values greater than 0.50 ug/mL FEU should be evaluated for risk stratification of patients with possible venous thromboembolism. In addition to expected elevations following injury or surgery, D-dimer levels increase in normal and increase steadily with normal aging. Values in healthy individuals often exceed the VTE exclusion cutoff value, and should be considered in the clinical context. us Amrit Marlow MD LAB BLOOD ORDERABLES Final Result [facility] [address] [place] [address] * PT-INR (03/23/2023 9:29 AM EST) Pathologist [facility] Prothrombin Time 13.3 12.0 - 14.3 sec 03/23/2023 9:44 AM EST [facility] INR 1.1 0.9 - 1.1 03/23/2023 9:44 AM EST [facility] Blood Venous blood specimen / Unknown Venipuncture / Unknown 03/23/2023 9:29 AM EST 03/23/2023 9:32 AM EST Narrative [facility] - 03/23/2023 9:44 AM EST OPTIMAL INR RANGES FOR PATIENT ON ORAL ANTICOAGULANT THERAPY Prevention of venous thromboembolism ?INR 2.0 to 3.0 In patients with heart disease: Atrial fibrillation ?INR 2.0 to 3.0 Valvular heart disease ? INR 2.0 to 3.0 Tissue heart valves ?INR 2.0 to 3.0 Mechanical prosthetic valves ? INR 2.5 to 3.[address] ? INR 2.5 to 3.5 Amrit Marlow MD LAB BLOOD ORDERABLES Final Result Performing Organization Address City/State/[facility] Co de Phone Number [facility] [address] [place] [address] * (ABNORMAL) CBC w/diff (03/23/2023 9:29 AM EST) [facility] WBC Count 5.74 3.70 - 10.30 10*3/uL LAB HEMATOLOGY METHOD 03/23/2023 9:35 AM EST [facility] RBC Count 3.95(L) 4.60 - 6.10 10*6/uL LAB HEMATOLOGY METHOD 03/23/2023 9:35 AM EST [facility] HGB 11.1(L) 13.7 - 17.5 g/dL LAB HEMATOLOGY METHOD 03/23/2023 9:35 AM EST [facility] HCT 35.0(L) 40.0 - 51.0 % LAB HEMATOLOGY METHOD 03/23/2023 9:35 AM EST [facility] Platelet Count 234 155 - 369 10*3/uL LAB HEMATOLOGY METHOD 03/23/2023 9:35 AM EST [facility] MCV 89 79 - 98 fL LAB HEMATOLOGY METHOD 03/23/2023 9:35 AM EST [facility] MCH 28.1 26.0 - 32.0 pg LAB HEMATOLOGY METHOD 03/23/2023 9:35 AM EST [facility] MCHC 31.7 30.7 - 35.5 g/dL LAB HEMATOLOGY METHOD 03/23/2023 9:35 AM [facility] RDW 13.8 11.5 - 14.5 % LAB HEMATOLOGY METHOD 03/23/2023 9:35 AM EST [facility] MPV 11.0 8.8 - 12.5 fL LAB HEMATOLOGY METHOD 03/23/2023 9:35 AM [facility] nRBC 0.0 <=0.0 per 100 WBCs LAB HEMATOLOGY METHOD 03/23/2023 9:35 AM [facility] Differential Type Automated LAB HEMATOLOGY METHOD 03/23/2023 9:35 AM [facility] Neutrophils % 84.0 % LAB HEMATOLOGY METHOD 03/23/2023 9:35 AM [facility] Lymphocytes % 13.0 % LAB HEMATOLOGY METHOD 03/23/2023 9:35 AM [facility] Monocytes % 2.0 % LAB HEMATOLOGY METHOD 03/23/2023 9:35 AM EST [facility] Eosinophils % 0.0 % LAB HEMATOLOGY METHOD 03/23/2023 9:35 AM [facility] Basophils % 0.0 % LAB HEMATOLOGY METHOD 03/23/2023 9:35 AM [facility] Immature Granulocytes % 1.0 % LAB HEMATOLOGY METHOD 03/23/2023 9:35 AM [facility] Neutrophils Absolute 4.79 1.60 - 6.10 10*3/uL LAB HEMATOLOGY METHOD 03/23/2023 9:35 AM EST [facility] Lymphocytes Absolute 0.74(L) 1.20 - 3.90 10*3/uL LAB HEMATOLOGY METHOD 03/23/2023 9:35 AM EST [facility] Monocytes Absolute 0.14(L) 0.30 - 0.90 10*3/uL LAB HEMATOLOGY METHOD 03/23/2023 9:35 AM EST [facility] Eosinophils Absolute 0.01 0.00 - 0.50 10*3/uL LAB HEMATOLOGY METHOD 03/23/2023 9:35 AM [facility] Basophils Absolute 0.02 0.00 - 0.10 10*3/uL LAB HEMATOLOGY METHOD 03/23/2023 9:35 AM EST [facility] Immature Granulocytes Absolute 0.04 0.00 - 0.06 10*3/uL LAB HEMATOLOGY METHOD 03/23/2023 9:35 AM EST [facility] Blood Venous blood specimen / Unknown Venipuncture / Unknown 03/23/2023 9:29 AM EST 03/23/2023 9:32 AM EST Narrative [facility] - 03/23/2023 9:35 AM EST Therapeutic decision making should be based on absolute values, rather than percentages. us Amrit Marlow MD LAB BLOOD ORDERABLES Final Result [facility] [address] [place] [id number] * (ABNORMAL) Blood gas panel, venous (03/23/2023 9:29 AM EST) pH, Venous 7.35 7.32 - 7.43 LAB HEMATOLOGY METHOD 03/23/2023 9:42 AM EST [facility] pCO2, Venous 55 40 - 55 mmHg LAB HEMATOLOGY METHOD 03/23/2023 9:42 AM EST [facility] pO2, Venous 27 25 - 40 mmHg LAB HEMATOLOGY METHOD 03/23/2023 9:42 AM EST [facility] SO2, Measured, Venous 41(L) 65 - 80 % LAB HEMATOLOGY METHOD 03/23/2023 9:42 AM EST [facility] Base Excess, Venous 3.4(H) -2.0 - 3.0 mmol/L LAB HEMATOLOGY METHOD 03/23/2023 9:42 AM EST [facility] Bicarbonate, Calculated, Venous 30(H) 22 - 26 mmol/L LAB HEMATOLOGY METHOD 03/23/2023 9:42 AM EST [facility] Hematocrit, Whole Blood 34.4(L) 40.0 - 51.0 % LAB HEMATOLOGY METHOD 03/23/2023 9:42 AM EST [facility] Sodium, Whole Blood 141 136 - 145 mmol/L LAB HEMATOLOGY METHOD 03/23/2023 9:42 AM EST [facility] Potassium, Whole Blood 5.1(H) 3.6 - 4.9 mmol/L LAB HEMATOLOGY METHOD 03/23/2023 9:42 AM EST [facility] Chloride, Whole Blood 101 97 - 107 mmol/L LAB HEMATOLOGY METHOD 03/23/2023 9:42 AM EST [facility] Glucose, Whole Blood 267(H) 74 - 99 mg/dL LAB HEMATOLOGY METHOD 03/23/2023 9:42 AM EST [facility] Lactate, Venous, Whole Blood 1.7 0.5 - 2.2 mmol/L LAB HEMATOLOGY METHOD 03/23/2023 9:42 AM EST [facility] Ionized Calcium, Whole Blood 4.6 4.6 - 5.1 mg/dL LAB HEMATOLOGY METHOD 03/23/2023 9:42 AM EST [facility] Blood Venous blood specimen / Unknown Venipuncture / Unknown 03/23/2023 9:29 AM EST 03/23/2023 9:40 AM EST us Amrit Marlow MD LAB BLOOD ORDERABLES Final Result Performing Organization Address City/[facility]/ZIP Co de Phone Number [facility] [address] [place] [address] * (ABNORMAL) Troponin now and 120 min (03/23/2023 9:29 AM EST) Troponin T, High Sensitivity, 0 Hour 206(H) <19 ng/L 03/23/2023 10:00 AM EST [facility] Blood Venous blood specimen / Unknown Venipuncture / Unknown 03/23/2023 9:29 AM EST 03/23/2023 9:32 AM EST us Amrit Marlow MD LAB BLOOD ORDERABLES Final Result [facility] [address] [place] [address] * (ABNORMAL) BNP (03/23/2023 9:29 AM EST) N-Terminal, PROBNP, Plasma 35,083(H) 0 - 899 pg/mL 03/23/2023 10:06 AM EST [facility] Blood Venous blood specimen / Unknown Venipuncture / Unknown 03/23/2023 9:29 AM EST 03/23/2023 9:32 AM EST us Amrit Marlow MD LAB BLOOD ORDERABLES Final Result Performing Organization Address City/[facility] Co de Phone Number [facility]ARE [facility] [address] [place] [address] * (ABNORMAL) Phosphorus (03/23/2023 9:29 AM EST) Phosphorus, Plasma 4.8(H) 2.5 - 4.5 mg/dL 03/23/2023 10:00 AM EST [facility] Blood Venous blood specimen / Unknown Venipuncture / Unknown 03/23/2023 9:29 AM EST 03/23/2023 9:32 AM EST us Amrit Marlow MD LAB BLOOD ORDERABLES Final Result Performing Organization Address [facility] Co de Phone Number [facility] [address] [place] [address] * Magnesium (03/23/2023 9:29 AM EST) Magnesium, Plasma 2.1 1.9 - 2.4 mg/dL 03/23/2023 10:00 AM EST [facility] Blood Venous blood specimen / Unknown Venipuncture / Unknown 03/23/2023 9:29 AM EST 03/23/2023 9:32 AM EST us Amrit Marlow MD LAB BLOOD ORDERABLES Final Result Performing Organization Address City/[facility] Phone Number [facility] [address] [place] [address] * (ABNORMAL) CMP (03/23/2023 9:29 AM EST) Glucose, Plasma 269(H) 74 - 99 mg/dL 03/23/2023 10:00 AM EST [facility] BUN, Plasma 63(H) 7 - 21 mg/dL 03/23/2023 10:00 AM EST [facility] Creatinine, Plasma 2.83(H) 0.80 - 1.30 mg/dL 03/23/2023 10:00 AM EST [facility] BUN/Creatinine Ratio 22 03/23/2023 10:00 AM EST [facility] Sodium, Plasma 138 136 - 145 mmol/L 03/23/2023 10:00 AM [facility] Potassium, Plasma 5.4(H) 3.7 - 4.8 mmol/L 03/23/2023 10:00 AM [facility] Chloride, Plasma 100 97 - 107 mmol/L 03/23/2023 10:00 AM [facility] CO2, Plasma 28 22 - 29 mmol/L 03/23/2023 10:00 AM [facility] Anion Gap 10 6 - 16 mmol/L 03/23/2023 10:00 AM [facility] Total Calcium, Plasma 9.1 8.9 - 10.2 mg/dL 03/23/2023 10:00 AM [facility] Total Protein 6.8 6.3 - 7.9 g/dL 03/23/2023 10:00 AM [facility] Albumin, Plasma 3.6 3.5 - 5.2 g/dL 03/23/2023 10:00 AM [facility] AST, Plasma 49 10 - 50 U/L 03/23/2023 10:00 AM [facility] Comment:Hemolyzed, result ma y be falsely increased. ALT, Plasma 26 10 - 50 U/L 03/23/2023 10:00 AM [facility] Alkaline Phosphatase, Plasma 188(H) 40 - 115 U/L 03/23/2023 10:00 AM [facility] Total Bilirubin, Plasma 0.7 0.2 - 1.1 mg/dL 03/23/2023 10:00 AM [facility] eGFRcr 25.5 mL/min/1.7 3m*2 03/23/2023 10:00 AM [facility] Comment:Reported eGFRcr in m L/min/1.73m2 is based the CKD-EPI 2020 equation that does not use a race coefficient. Blood Venous blood specimen / Unknown Venipuncture / Unknown 03/23/2023 9:29 AM EST 03/23/2023 9:32 AM EST us Amrit Marlow MD LAB BLOOD ORDERABLES Final Result [facility] [address] [place] [phone] * (ABNORMAL) POCT glucose meter (03/23/2023 9:16 AM EST) POCT Glucose 238(H) 74 - 99 mg/dL 03/23/2023 9:18 AM EST [facility] Comment:Accuracy of a glucos e result obtained from a capillary whole blood specimen relies upon adequate, non-compromised capillary blood flow. If the capillary glucose result is not consistent with the patient's clinical signs and symptoms, glucose testing should be repeated with either an arterial or venous sample on the glucometer or sent to the main labortory for testing. Comment 03/23/2023 9:18 AM EST [facility] Certified Dental Assistant ID Shabana Augustin 03/23/2023 9:18 AM EST [facility] Device ID [id number] 03/23/2023 9:18 AM EST [facility] Specimen Type POC Capillary 03/23/2023 9:18 AM EST [facility] Blood Capillary blood specimen / Unknown 03/23/2023 9:16 AM EST 03/23/2023 9:18 AM EST us Generic Provider Poct LAB POINT OF CARE TEST DOCKED DEVICE UNSOLICITED RESULTS Final Result Performing Organization Address City/State/[facility] Co de Phone Number [facility] [address] [place] [phone] documented in this encounter Visit Diagnoses Diagnosis HFrEF (heart failure with reduced ejection fraction) (CMS/HCC)- Primary Acute on chronic congestive heart failure, unspecified heart failure type (CMS/HCC) ALEXANDRE (obstructive sleep apnea) Obstructive sleep apnea (adult) (pediatric) Acute on chronic congestive heart failure (CMS/HCC) documented in this encounter Admitting Diagnoses Diagnosis HFrEF (heart failure with reduced ejection fraction) (CMS/HCC) documented in this encounter Administered Medications Inactive Administered Medications - up to 3 most recent administrations Medication Order MAR Action Action Date Dose Rate Site acetaminophen (Tylenol) tablet 650 mg 650 mg, Oral, Every 6 hours PRN, Starting on Wed03/23/23 at 1720, Until Chelita 03/25/23 at 1644, Routine, mild pain, moderate pain Given 03/23/2023 5:27 PM EST 650 mg aspirin chewable tablet 81 mg 81 mg, Oral, Daily, First dose on Wed03/23/23 at 1605, Until Discontinued, Routine Given 03/25/2023 8:12 AM EST 81 mg Given 03/24/2023 8:59 AM EST 81 mg Given 03/23/2023 4:17 PM EST 81 mg atorvastatin (Lipitor) tablet 80 mg 80 mg, Oral, Nightly, First dose on Wed03/23/23 at 2100, Until Discontinued Given 03/24/2023 8:22 PM EST 80 mg Given 03/23/2023 8:09 PM EST 80 mg carvedilol (Coreg) tablet 12.5 mg 12.5 mg, Oral, 2 times daily, First dose on Wed03/23/23 at 2100, Until Discontinued, Routine Given 03/25/2023 8:12 AM EST 12.5 mg Given 03/24/2023 8:22 PM EST 12.5 mg Given 03/24/2023 8:59 AM EST 12.5 mg clopidogrel (Plavix) tablet 75 mg 75 mg, Oral, Daily, First dose on Wed03/23/23 at 1605, Until Discontinued, Routine Given 03/25/2023 8:12 AM EST 75 mg Given 03/24/2023 8:59 AM EST 75 mg Given 03/23/2023 4:17 PM EST 75 mg dapagliflozin (Farxiga) tablet 10 mg 10 mg, Oral, Daily, First dose on Wed03/24/23 at 1000, Until Discontinued, RoutineIndications:Left Systolic Heart Failure Given 03/25/2023 8: 12 AM EST 10 mg Given 03/24/2023 12:14 PM EST 10 mg dextrose 10 % (D10W) bolus 125 mL 125 mL (12.5 g), Intravenous, Every 15 min PRN, Starting on Wed03/23/23 at 1611, Until Chelita 03/25/23 at 1644, Administer over 15 Minutes, Routine, POC BG 51 to 70 mg/dL dextrose 10 % (D10W) bolus 250 mL 250 mL (25 g), Intravenous, Every 15 min PRN, Starting on Wed03/23/23 at 1611, Until Chelita 03/25/23 at 1644, Administer over 15 Minutes, Routine, POC BG is less than or equal to 50 mg/dL entecavir (Baraclude) tablet 0.5 mg 0.5 mg, Oral, Every 48 hours, First dose on Wed03/24/23 at 0900, Until Discontinued, Routine Given 03/24/2023 9:26 AM EST 0.5 mg furosemide (Lasix) injection 40 mg 40 mg, Intravenous, Once, 1 dose, On Wed03/23/23 at 1545, Routine Given 03/23/2023 4:18 PM EST 40 mg furosemide (Lasix) injection 40 mg 40 mg, Intravenous, Once, 1 dose, On Wed03/24/23 at 0900, Routine Given 03/24/2023 8:59 AM EST 40 mg furosemide (Lasix) tablet 40 mg 40 mg, Oral, Once, 1 dose, On Wed03/24/23 at 1715, Routine Given 03/24/2023 5:34 PM EST 40 mg furosemide (Lasix) tablet 40 mg 40 mg, Oral, Daily, First dose on Wed03/25/23 at 0900, Until Discontinued, Routine Given 03/25/2023 8:1 2 AM EST 40 mg gabapentin (Neurontin) capsule 600 mg 600 mg, Oral, 3 times daily, First dose on Wed03/23/23 at 1640, Until Discontinued, Routine Given 03/25/2023 8:12 AM EST 600 mg Given 03/24/2023 8:22 PM EST 600 mg Given 03/24/2023 5:35 PM EST 600 mg glucose (Glutose) 40 % oral gel 15 grams of glucose 15 grams of glucose, Sublingual, Every 15 min PRN, Starting on Wed03/23/23 at 1611, Until Wed03/25/23 at 1644, Routine, low blood sugar, BG 51?to 70 mg/dL glucose (Glutose) 40 % oral gel 30 grams of glucose 30 grams of glucose, Sublingual, Every 15 min PRN, Starting on Wed03/23/23 at 1611, Until Wed03/25/23 at 1644, Routine, low blood sugar, POC BG is less than or equal to 50 mg/dL heparin (porcine) injection 5,000 Units 5,000 Units, Subcutaneous, Every 8 hours, First dose on Wed03/23/23 at 2200, Until Discontinued, Routine Given 03/25/2023 5:02 AM EST 5,000 Units Left Upper Arm (Back ) Given 03/24/2023 10:45 PM EST 5,000 Units Right Upper Arm (Back) Given 03/24/2023 2:30 PM EST 5,000 Units L eft Lower Abdomen hydrALAZINE (Apresoline) tablet 50 mg 50 mg, Oral, 3 times daily (0600, 1200 & 1800), First dose on Wed03/23/23 at 1800, Until Discontinued, Routine Given 03/25/2023 12:42 PM EST 50 mg Given 03/25/2023 5:03 AM EST 50 mg Given 03/24/2023 6:04 PM EST 50 mg insulin glargine-yfgn 100 UNIT/ML injection 13 Units 13 Units, Subcutaneous, Nightly, First dose on Wed03/23/23 at 2100, Until Discontinued, Routine Given 03/23/2023 8:09 PM EST 13 Units Left Upper Arm (Back ) insulin glargine-yfgn 100 UNIT/ML injection 18 Units 18 Units, Subcutaneous, Nightly, First dose (after last modification) on Wed03/24/23 at 2100, Until Discontinued, Routine Given 03/24/2023 8:23 PM EST 18 Units Left Upper Arm (Back ) insulin lispro (Admelog) 100 units/mL injection - Correction - Standard Dose 0-5 Units, Subcutaneous, 3 times daily with meals, First dose on Wed03/23/23 at 1730, Until Discontinued, Routine Given 03/25/2023 9:30 AM EST 1 Units Left Lower Abdomen Given 03/24/2023 6:08 PM EST 1 Units Le ft Lower Abdomen Given 03/24/2023 12:15 PM EST 4 Units L eft Lower Abdomen insulin lispro (Admelog) injection - Correction - Nighttime Dose 0-3 Units, Subcutaneous, 2 times nightly (2100 & 0300), First dose on Wed03/23/23 at 2100, Until Discontinued, Routine Given 03/24/2023 3:28 AM EST 1 Units Left Upper Arm (Back ) Given 03/23/2023 9:30 PM EST 3 Units Le ft Lower Abdomen Insulin Lispro (Admelog, HumaLOG) 100 UNIT/ML injection 4 Units 4 Units, Subcutaneous, Once, 1 dose, On Wed03/23/23 at 2130, Routine Given 03/23/2023 9:29 PM EST 4 Units Left Lower Abdomen Insulin Lispro (Admelog, HumaLOG) 100 UNIT/ML injection 5 Units 5 Units, Subcutaneous, 3 times daily with meals, First dose on Wed03/23/23 at 1730, Until Discontinued, Routine Given 03/24/2023 9:00 AM EST 5 Units Left Lower Abdomen Given 03/23/2023 5:26 PM EST 5 Units Ri ght Upper Arm (Back) Insulin Lispro (Admelog, HumaLOG) 100 UNIT/ML injection 6 Units 6 Units, Subcutaneous, 3 times daily with meals, First dose (after last modification) on Wed03/24/23 at 1230, Until Discontinued, Routine Given 03/25/2023 12:43 PM EST 6 Units Left Lower Abdomen Given 03/25/2023 9:30 AM EST 6 Units Le ft Lower Abdomen Given 03/24/2023 6:08 PM EST 6 Units Le ft Lower Abdomen isosorbide dinitrate (Isordil) tablet 40 mg 40 mg, Oral, 3 times daily (0600, 1200 & 1800), First dose on Wed03/23/23 at 1800, Until Discontinued Given 03/25/2023 12:42 PM EST 40 mg Given 03/25/2023 5:02 AM EST 40 mg Given 03/24/2023 6:04 PM EST 40 mg Povidone-Iodine 5 % swab solution 1 Swab Nasal, Daily, 5 doses, First dose on Wed03/23/23 at 1930, Last dose on Wed03/27/23 at 0900, Routine Given 03/24/2023 9:26 AM EST 1 Swab Given 03/23/2023 8:09 PM EST 1 Swab sodium chloride 0.9 % flush 10 mL 10 mL, Intravenous, Every 8 hours PRN, Starting on Wed03/23/23 at 1537, Until Wed03/25/23 at 1644, Routine, line care sodium chloride 0.9 % flush 10 mL 10 mL, Intravenous, As needed, Starting on Wed03/23/23 at 1537, Until Wed03/25/23 at 1644, Routine, line care Tiotropium [place] Monohydrate (Spiriva Respimat) 2.5 MCG/ACT inhaler 2 puff 2 puff, Inhalation, Daily, First dose on Wed03/24/23 at 1530, Until Discontinued Given 03/25/2023 8:12 AM EST 2 puffs Given 03/24/2023 10:45 PM EST 2 puffs documented in this encounter Active and Recently Administered Medications Times are shown in EST. Scheduled Medication Order 03/23/2023 03/24/2023 03/25/2023 aspirin chewable tablet 81 mg 81 mg, Oral, Daily, First dose on Wed03/23/23 at 1605, Until Discontinued, Routine 1617 (Given - Provider: Radha Esposito RN) 0859 (Given - Provider: Lynda Gtz RN) 08 (Given - Provider: Macrina Landa RN) atorvastatin (Lipitor) tablet 80 mg 80 mg, Oral, Nightly, First dose on Wed03/23/23 at 2100, Until Discontinued 2008 (Given - Provider: Charlotte Cooper RN) 2021 (Given - Provider: Macrina Landa RN) carvedilol (Coreg) tablet 12.5 mg 12.5 mg, Oral, 2 times daily, First dose on Wed03/23/23 at 2100, Until Discontinued, Routine 2008 (Given - Provider: Charlotte Cooper RN) 0859 (Given - Provider: Lynda Gtz RN)2021 (Given - Provider: Macrina Landa RN) 08 (Given - Provider: Macrina Landa RN) clopidogrel (Plavix) tablet 75 mg 75 mg, Oral, Daily, First dose on Wed03/23/23 at 1605, Until Discontinued, Routine 1617 (Given - Provider: Radha Esposito RN) 0859 (Given - Provider: Lynda Gtz RN) 08 (Given - Provider: Macrina Landa RN) dapagliflozin (Farxiga) tablet 10 mg 10 mg, Oral, Daily, First dose on Wed03/24/23 at 1000, Until Discontinued, Routine 1214 (Given - Provider: Lynda Gtz RN) 08 (Given - Provider: Macrina Landa RN) entecavir (Baraclude) tablet 0.5 mg 0.5 mg, Oral, Every 48 hours, First dose on Wed03/24/23 at 0900, Until Discontinued, Routine 0926 (Given - Provider: Lynda Gtz RN) furosemide (Lasix) injection 40 mg (COMPLETED) 40 mg, Intravenous, Once, 1 dose, On Wed03/23/23 at 1545, Routine 1618 (Given - Provider: Radha Esposito RN) furosemide (Lasix) injection 40 mg (COMPLETED) 40 mg, Intravenous, Once, 1 dose, On Wed03/24/23 at 0900, Routine 0859 (Given - Provider: Lynda Gtz RN) furosemide (Lasix) tablet 40 mg (COMPLETED) 40 mg, Oral, Once, 1 dose, On Wed03/24/23 at 1715, Routine 1734 (Given - Provider: Lynda Gtz RN) furosemide (Lasix) tablet 40 mg 40 mg, Oral, Daily, First dose on Wed03/25/23 at 0900, Until Discontinued, Routine 0812 (Given - Provid er: Macrina Landa RN) gabapentin (Neurontin) capsule 600 mg 600 mg, Oral, 3 times daily, First dose on Wed03/23/23 at 1640, Until Discontinued, Routine 1726 (Given - Provider: Enedelia Carmona)2009 (Given - Provider: Charlotte Cooper RN) 0859 (Given - Provider: Lynda Gtz RN)1735 (Given - Provider: Lynda Gtz RN)2022 (Given - Provider: Macrina Landa RN) 0812 (Given - Provider: Macrina Landa RN)1600 (Canceled Entry - Provider: Automatic Discharge Provider - Comment: Automatically canceled at discontinue of medication order) heparin (porcine) injection 5,000 Units 5,000 Units, Subcutaneous, Every 8 hours, First dose on Wed03/23/23 at 2200, Until Discontinued, Routine 2130 (Given - Provider: Charlotte Cooper RN) 0509 (Given - Provider: Charlotte Cooper RN)1430 (Given - Provider: Lynda Gtz RN)2245 (Given - Provider: Macrina Landa RN) 0502 (Given - Provider: Macrina Landa RN)1425 (Not Given - Provider: Lynda Gtz RN - Reason: Patient/family refused) hydrALAZINE (Apresoline) tablet 50 mg 50 mg, Oral, 3 times daily (0600, 1200 & 1800), First dose on Wed03/23/23 at 1800, Until Discontinued, Routine 172 (Given - Provider: Enedelia Carmona) 0509 (Given - Provider: Charlotte Cooper, JAME)1214 (Given - Provider: Lynda Gtz, JAME)1804 (Given - Provider: Lynda Gtz RN) 0503 (Given - Provider: Macrina Landa RN)1242 (Given - Provider: Lynda Gtz RN) insulin glargine-yfgn 100 UNIT/ML injection 13 Units (CANCELED) 13 Units, Subcutaneous, Nightly, First dose on Wed03/23/23 at 2100, Until Discontinued, Routine 2008 (Given - Provider: Charlotte Cooper RN) insulin glargine-yfgn 100 UNIT/ML injection 18 Units 18 Units, Subcutaneous, Nightly, First dose (after last modification) on Wed03/24/23 at 2100, Until Discontinued, Routine 2022 (Given - Provider: Macrina Landa RN) insulin lispro (Admelog) 100 units/mL injection - Correction - Standard Dose 0-5 Units, Subcutaneous, 3 times daily with meals, First dose on Wed03/23/23 at 1730, Until Discontinued, Routine 1726 (Given - Provider: Enedelia Carmona) 0859 (Given - Provider: Lynda Gtz RN)1215 (Given - Provider: Lynda Gtz RN)1808 (Given - Provider: Lynda Gtz RN) 0930 (Given - Provider: Lynda Gtz RN)1243 (Not Given - Provider: Lynda Gtz RN - Reason: Hold for condition: must add comment ) insulin lispro (Admelog) injection - Correction - Nighttime Dose 0-3 Units, Subcutaneous, 2 times nightly (2100 & 0300), First dose on Wed03/23/23 at 2100, Until Discontinued, Routine 2129 (Given - Provider: Charlotte Cooper, JAME - Comment: tapan WOO) 0328 (Given - Provider: Charlotte Cooper RN)2022 (Not Given - Provider: Macrina Landa, JAME - Reason: Order parameters not met) 024 (Not Given - Provider: Macrina Landa RN - Reason: Order parameters not met) Insulin Lispro (Admelog, HumaLOG) 100 UNIT/ML injection 4 Units (COMPLETED) 4 Units, Subcutaneous, Once, 1 dose, On Wed03/23/23 at 2130, Routine 2128 (Given - Provider: Charlotte Cooper RN) Insulin Lispro (Admelog, HumaLOG) 100 UNIT/ML injection 5 Units (CANCELED) 5 Units, Subcutaneous, 3 times daily with meals, First dose on Wed03/23/23 at 1730, Until Discontinued, Routine 172 (Given - Provider: Enedelia Carmona) 0900 (Given - Provider: Lynda Gtz RN) Insulin Lispro (Admelog, HumaLOG) 100 UNIT/ML injection 6 Units 6 Units, Subcutaneous, 3 times daily with meals, First dose (after last modification) on Wed03/24/23 at 1230, Until Discontinued, Routine 121 (Given - Provider: Lynda Gtz RN)1808 (Given - Provider: Lynda Gtz RN) 0930 (Given - Provider: Lynda Gtz RN)1243 (Given - Provider: Lynda Gtz RN) isosorbide dinitrate (Isordil) tablet 40 mg 40 mg, Oral, 3 times daily (0600, 1200 & 1800), First dose on Wed03/23/23 at 1800, Until Discontinued 172 (Given - Provider: Enedelia Carmona) 0509 (Given - Provider: Charlotte Cooper RN)1214 (Given - Provider: Lynda Gtz, JAME)1804 (Given - Provider: Lynda Gtz RN) 0502 (Given - Provider: Macrina Landa, JAME)1242 (Given - Provider: Lynda Gtz RN) Povidone-Iodine 5 % swab solution 1 Swab Nasal, Daily, 5 doses, First dose on Wed03/23/23 at 1930, Last dose on Wed03/27/23 at 0900, Routine 2008 (Given - Provider: Charlotte Cooper, JAME) 925 (Given - Provider: Lynda Gtz, JAME) 811 (Not Given - Provider: Macrina Landa, JAME - Reason: Patient/family refused) Tiotropium [place] Monohydrate (Spiriva Respimat) 2.5 MCG/ACT inhaler 2 puff 2 puff, Inhalation, Daily, First dose on Wed03/24/23 at 1530, Until Discontinued 2245 (Given - Provider: Macrina Landa, JAME) 811 (Given - Provider: Macrina Landa, JAME) PRN Medication Order 03/23/2023 03/24/2023 03/25/2023 acetaminophen (Tylenol) tablet 650 mg 650 mg, Oral, Every 6 hours PRN, Starting on Wed03/23/23 at 1720, Until Chelita 03/25/23 at 1644, Routine, mild pain, moderate pain 1727 (Given - Provider: Enedelia Carmona) dextrose 10 % (D10W) bolus 125 mL(Linked Group 1) 125 mL (12.5 g), Intravenous, Every 15 min PRN, Starting on Wed03/23/23 at 1611, Until Chelita 03/25/23 at 1644, Administer over 15 Minutes, Routine, POC BG 51 to 70 mg/dL dextrose 10 % (D10W) bolus 250 mL(Linked Group 2) 250 mL (25 g), Intravenous, Every 15 min PRN, Starting on Wed03/23/23 at 1611, Until Chelita 03/25/23 at 1644, Administer over 15 Minutes, Routine, POC BG is less than or equal to 50 mg/dL glucagon (human recombinant) injection 1 mg 1 mg, Intramuscular, Every 15 min PRN, Starting on Wed03/23/23 at 1611, Until Chelita 03/25/23 at 1644, Routine, If patient NPO, lacks IV access, May Give IM and POC BG less than or equal to 70 mg/dL, glucose (Glutose) 40 % oral gel 15 grams of glucose 15 grams of glucose, Sublingual, Every 15 min PRN, Starting on Wed03/23/23 at 1611, Until Chelita 03/25/23 at 1644, Routine, low blood sugar, POC BG 71 to 89 mg/dL glucose (Glutose) 40 % oral gel 15 grams of glucose(Linked Group 1) 15 grams of glucose, Sublingual, Every 15 min PRN, Starting on Wed03/23/23 at 1611, Until Chelita 03/25/23 at 1644, Routine, low blood sugar, BG 51?to 70 mg/dL glucose (Glutose) 40 % oral gel 30 grams of glucose(Linked Group 2) 30 grams of glucose, Sublingual, Every 15 min PRN, Starting on Wed03/23/23 at 1611, Until Chelita 03/25/23 at 1644, Routine, low blood sugar, POC BG is less than or equal to 50 mg/dL sodium chloride 0.9 % flush 10 mL(Linked Group 3) 10 mL, Intravenous, Every 8 hours PRN, Starting on Wed03/23/23 at 1537, Until Chelita 03/25/23 at 1644, Routine, line care sodium chloride 0.9 % flush 10 mL(Linked Group 3) 10 mL, Intravenous, As needed, Starting on Wed03/23/23 at 1537, Until Chleita 03/25/23 at 1644, Routine, line care Linked Groups Order Group 1: glucose (Glutose) 40 % oral gel 15 grams of glucoseJump to med 15 grams of glucose, Sublingual, Every 15 min PRN, Starting on Wed03/23/23 at 1611, Until Chelita 03/25/23 at 1644, Routine, low blood sugar, BG 51?to 70 mg/dL Or dextrose 10 % (D10W) bolus 125 mLJump to med 125 mL (12.5 g), Intravenous, Every 15 min PRN, Starting on Wed03/23/23 at 1611, Until Chelita 03/25/23 at 1644, Administer over 15 Minutes, Routine, POC BG 51 to 70 mg/dL Group 2: dextrose 10 % (D10W) bolus 250 mLJump to med 250 mL (25 g), Intravenous, Every 15 min PRN, Starting on Wed03/23/23 at 1611, Until Chelita 03/25/23 at 1644, Administer over 15 Minutes, Routine, POC BG is less than or equal to 50 mg/dL Or glucose (Glutose) 40 % oral gel 30 grams of glucoseJump to med 30 grams of glucose, Sublingual, Every 15 min PRN, Starting on Wed03/23/23 at 1611, Until Chelita 03/25/23 at 1644, Routine, low blood sugar, POC BG is less than or equal to 50 mg/dL Group 3: Insert peripheral IV (COMPLETED) Once, On Wed03/23/23 at 1538, For 1 occurrence And Saline lock IV (COMPLETED) Once, On Wed03/23/23 at 1538, For 1 occurrence And sodium chloride 0.9 % flush 10 mLJump to med 10 mL, Intravenous, Every 8 hours PRN, Starting on Wed03/23/23 at 1537, Until Chelita 03/25/23 at 1644, Routine, line care And sodium chloride 0.9 % flush 10 mLJump to med 10 mL, Intravenous, As needed, Starting on Wed03/23/23 at 1537, Until Chleita 03/25/23 at 1644, Routine, line care documented in this encounter Additional Health Concerns Infection Onset Date Last Indicated Resolved Time MRSA Comment:Positive blood culture 03/03/2019 01/30/2024 Assessment Noted Time A Body Mass Index follow-up plan has been documented for the patient 03/25/2023 11:58 AM EST documented as of this encounter Care Teams Clerical Adjudicator Relationship Specialty Start Date End Date Terence Ring [address] [place] [id number] PCP - General 08/09/20 03/23/23 Erik Hurley MD [address] [place] [id number] PCP - General 03/24/23 06/13/23 documented as of this encounter
--- OUTSIDE RECORDS SUMMARY | 2024-02-23 18:57 | XMS_ITS | Encounter Summary ---
Author Organization [facility] Address [address] [place] [address] Care Team Providers Care Production Floater Name Role Phone Jhonathan Terence Covarrubias Primary Care Provider [phone] Encounter Details Date Type Department Care Team (Latest Contact Info) Description 03/23/2023 Travel Social History Tobacco Use Types Packs/Day [...] in a skilled nursing (including now)? No 03/24/2023 CAGE ASSESSMENT Answer [...] drink first t erin in the morning (EYE-LEATHER WHITENER) to steady your nerves or to get [...] Description 03/07/2024 1:40 PM EST Office Visit [facility] [place] [address], [address] [place] [address] Naeem Blunt MD [address] [place] [phone] documented as of this encounter Visit Diagnoses Not on filedocumented in this encounter Additional Health Concerns Infection Onset Date Last Indicated Resolved Time MRSA Comment:Positive blood culture 03/03/2019 01/30/2024 Assessment Noted Time A Body Mass Index follow-up plan has been documented for the patient 03/25/2023 11:58 AM EST documented as of this encounter Care Teams Production Floater Relationship Specialty Start Date End Date Terence Ring [address] [place] [id number] PCP - General 08/09/20 03/23/23 documented as of this encounter
--- OUTSIDE RECORDS SUMMARY | 2024-02-23 18:57 | XMS_ITS | Encounter Summary ---
Author Organization Healthcare Address [address] [place] [address] Care Team Providers Care Head Grinder Name Role Phone Jhonathan Terence Covarrubias Primary Care Provider [phone] Judy Minaya LPN Unavailable Unavailable Encounter Details Date Type Department Care Team ([facility] st Contact Info) Description 03/11/2023 Telephone [facility] [address], [address] [place] [address] Tamara Muñoz, POLICY ADVISER GS - 7 MAIN MEDICAL-SURGICAL Social History Tobacco Use Types Packs/Day Years Used Date Smoking Tobacco: Every Day Cigarettes Smokeless Tobacco: Never Alcohol Use Standard Drinks/Week Comments No 0 (1 standard drink = 0.6 oz pur e alcohol) Humiliation, Afraid, Rape, and Kick questionnair e Answer Date Recorded Within the last year, have y ou been afraid of your partner or ex-partner? No 02/05/2023 Within the last year, have y ou been humiliated or emotionally abused in other ways by your partner or ex-partner? No Within the last year, have y ou been kicked, hit, slapped, or otherwise physically hurt by your partner or ex-partner? No 02/05/2023 Within the last year, have y ou been raped or forced to have any kind of sexual activity by your partner or ex-partner? No 02/05/2023 Hunger Vital Sign Answer Date Recorded Within the past 12 months, y ou worried that your food would run out before you got the money to buy more. Never true 02/06/20 23 Within the past 12 months, t he food you bought just didn't last and you didn't have money to get more. Never true 02/05/2023 PRAPARE - Transportation Answer Date Re corded In the past 12 months, has l ack of transportation kept you from medical appointments or from getting medications? No 01/27 In the past 12 months, has l ack of transportation kept you from meetings, work, or from getting things needed for daily living? No 02/05/2023 Housing Stability Vital Sign Answer Raf e Recorded In the last 12 months, was t here a time when you were not able to pay the mortgage or rent on time? No 02/05/2023 In the last 12 months, how many places have you lived? 2 02/05/2023 In the last 12 months, was t here a time when you did not have a steady place to sleep or slept in a residential (including now)? No 02/05/2023 CAGE ASSESSMENT Answer Date Recorded Cage unable [...] drink first t erin in the morning (EYE-VETERANS ADVISER) to steady your nerves or to get rid of a hangover? 0 02/05/2023 CAGE Questionnaire Score 0 023 Utilities Answer Date Recorded In the past 12 months has th e [employer], gas, oil, or water company threatened to shut off services in your home? No 02/05/2023 Sex and Gender Information Value Date Recorded Sex Assigned at Not on file Legal Sex Male 8:15 PM EDT Gender Identity Not on file Sexual Orientation Not on file documented as of this encounter Miscellaneous Notes * Telephone Encounter - Tamara Muñoz - 03/11/2023 4:24 PM EST 03/11/23 called and comfried appt for 03/15/23.ar. documented in this encounter Plan of Treatment Upcoming Encounters Date Type Department Care Team (Late st Contact Info) Description 03/07/2024 1:40 PM EST Office Visit [facility] [place] [address], [address] [place] [address] Naeem Blunt MD [address] [place] [address] documented as of this encounter Visit Diagnoses Not on filedocumented in this encounter Additional Health Concerns Infection Onset Date Last Indicated Resolved Time MRSA Comment:Positive blood culture 03/03/2019 01/30/2024 Assessment Noted Time A Body Mass Index follow-up plan has been documented for the patient 02/12/2023 12:32 PM EST documented as of this encounter Care Teams Head Grinder Relationship Specialty Start Date End Date Terence Ring [address] [place] [id number] PCP - General 08/09/20 03/23/23 Judy Minaya LPN VALUE-BASED [place] [address] TCM Nurse 02/16/23 03/18/23 documented as of this encounter
--- OUTSIDE RECORDS SUMMARY | 2024-02-23 18:57 | XMS_ITS | Encounter Summary ---
Author Organization [facility] Address [address] [place] [address] Care Team Providers Care Patient Scheduler Name Role Phone Terence Ring Primary Care Provider [phone] Judy Minaya LPN Unavailable Unavailable Encounter Details Date Type Department Care Team (Late st Contact Info) Description 03/18/2023 Patient Outreach POPULATION [address] [phone] Judy Minaya LPN VALUE-BASED [place] [address] Social History Tobacco Use Types Packs/Day Years [...] slept in a fdc (including now)? No 02/05/2023 CAGE ASSESSMENT Answer [...] drink first t erin in the morning (EYE-CONCRETE PIPE MACHINE OPERATOR) to steady your nerves or to get [...] Upcoming Encounters Date Type Department Care Team ([facility] st Contact Info) Description 03/07/2024 1:40 PM EST Office Visit [facility] [place] [address], [address] [place] [address] Naeem Blunt MD [address] [place] [phone] documented as of this encounter Visit Diagnoses Not on filedocumented in this encounter Additional Health Concerns Infection Onset Date Last Indicated Resolved Time MRSA Comment:Positive blood culture 03/03/2019 01/30/2024 Assessment Noted Time A Body Mass Index follow-up plan has been documented for the patient 02/12/2023 12:32 PM EST documented as of this encounter Care Teams Patient Scheduler Relationship Specialty Start Date End Date Terence Ring [address] [place] [id number] PCP - General 08/09/20 03/23/23 Judy Minaya LPN VALUE-BASED [place] [address] TCM Nurse 02/16/23 03/18/23 documented as of this encounter
--- OUTSIDE RECORDS SUMMARY | 2024-02-23 18:57 | XMS_ITS | Encounter Summary ---
Author Organization [facility] Address [address] [place] [address] Care Team Providers Care Desk Clerk Name Role Phone JhonathanTerence Marci Primary Care Provider [phone] Judy Minaya LPN Unavailable Unavailable Reason for Visit * Reason Comments TCM Call Encounter Details Date Type Department Care Team (Late st Contact Info) Description 02/16/2023 Patient Outreach POPULATION [facility] [address] [place] [address] Judy Minaya LPN VALUE-[employer]ED [place] [address] TCM Call Social History Tobacco Use Types [...] in a senior living (including now)? No 02/05/2023 CAGE ASSESSMENT Answer [...] drink first t erin in the morning (EYE-SILVERSMITH APPRENTICE) to steady your nerves or to get rid of a hangover? 0 02/05/2023 CAGE Questionnaire Score 0 023 Utilities Answer Date Recorded In the past 12 months has th e [employer], gas, oil, or water company threatened to shut off services in your home? No 02/05/2023 Sex and Gender Information Value Date Recorded Sex Assigned at Not on file Legal Sex Male 8:15 PM EDT Gender Identity Not on file Sexual Orientation Not on file documented as of this encounter Miscellaneous Notes * Progress Notes - Judy Minaya LPN - 02/16/2023 2:34 PM EST Admission Date: 02/03/2023 Discharge Date: 02/12/2023 Hospital Service: Cardiology Discharge Diagnosis: Acute respiratory failure with hypoxia ----- MONIK appointment scheduled on 02/26/2023 @ 3:[address] Joyner. Buzz Hurley is a 57 y.o. male with a PMH of COPD, HTN, HFrEF (unknown EF), T2DM, HLD, CAD c/b Mis/p 2x stents (most recently ~2017 per patient), cirrhosis, depression, and left AKA who presents from OSH with SOA and acute respiratory distress. #HFrEF # HFrEF Exacerbation- Resolved. # Acute Hypoxic Respiratory Failure- Resolved. - LVEF noted >50% at OSH prior to this admission on 02/03/23. Noted to be 32% with recent TTE. With elevated troponin and ST depressions- ischemic mediated injury as leading cause of reduction of EF. - Pt had adequately been diuresed with adequate urine output. - Upon admission, BNP of 67,730 with possible CAP component- CAP treated. - Required BiPAP, HFNC and transitioned to NC. Currently on 2L with 100% saturation. - 1.8 L UO yesterday. - Echo noted at 32% and was noted to be 50% at OSH 2 days ago. - EDD with EF of 40-45% with LV global hypokinesis - Pt appeared to be euvolemic with lung and peripheral examination. - Will continue Isordil and increase Hydralazine for afterload reduction. - Will increase Coreg to 12.5. - Will defer Losartan, SGLT-2, and Spironolactone at this time due to kidney function. Will reassess kidney function. If stable then would start GDMT, as possibly pt's baseline kidney function secondary to CKD. - Follow up with cardiology ; will make diuretic PRN until follow-up. * Progress Notes - Ceci Greene LPN - 02/16/2023 2:34 PM EST Unable to reach this patient. Call went to voicemail. Patient was left a message indicating the date and time of his MONIK appointment as well as my name and if he had any questions. documented in this encounter Plan of Treatment Upcoming Encounters Date Type Department Care Team (Late st Contact Info) Description 03/07/2024 1:40 PM EST Office Visit [facility] [place] [address], [address] [place] [phone] Naeem Blunt MD [address] [place] [address] documented as of this encounter Visit Diagnoses Not on filedocumented in this encounter Additional Health Concerns Infection Onset Date Last Indicated Resolved Time MRSA Comment:Positive blood culture 03/03/2019 01/30/2024 Assessment Noted Time A Body Mass Index follow-up plan has been documented for the patient 02/12/2023 12:32 PM EST documented as of this encounter Care Teams Desk Clerk Relationship Specialty Start Date End Date Terence Ring [facility] [place] [address] PCP - General 08/09/20 03/23/23 Judy Minaya LPN VALUE-[place]ED [place] [address] TCM Nurse 02/16/23 03/18/23 documented as of this encounter
--- OUTSIDE RECORDS SUMMARY | 2024-02-23 18:58 | XMS_ITS | Encounter Summary ---
Author Organization [facility] Address [address] [place] [address] Care Team Providers Care Transition Teacher Name Role Phone Terence Ring Primary Care Provider [phone] Encounter Details Date Type Department Care Team (Latest Contact Info) Description 09/23/2022 Travel Social History Tobacco Use Types Packs/Day Years Used Date Smoking Tobacco: Former Alcohol Use Standard Drinks/Week Comments No 0 (1 standard drink = 0.6 oz pur e alcohol) Sex and Gender Information Value Date Recorded Sex Assigned at Not on file Legal Sex Male 8:15 PM EDT Gender Identity Not on file Sexual Orientation Not on file documented as of this encounter Plan of Treatment Upcoming Encounters Date Type Department Care Team (Late st Contact Info) Description 03/07/2024 1:40 PM EST Office Visit [facility] [place] [address] [facility], [address] [place] [address] Naeem Blunt MD [address] [place] [address] documented as of this encounter Visit Diagnoses Not on filedocumented in this encounter Additional Health Concerns Infection Onset Date Last Indicated Resolved Time MRSA Comment:Positive blood culture 03/03/2019 01/30/2024 documented as of this encounter Care Teams Transition Teacher Relationship Specialty Start Date End Date Terence Ring [facility] [address] PCP - General 08/09/20 03/23/23 documented as of this encounter
--- OUTSIDE RECORDS SUMMARY | 2024-02-23 18:58 | XMS_ITS | Encounter Summary ---
Author Organization [facility] Address [address] [place] [address] Care Team Providers Care Floor Coverings Installer Name Role Phone Jhonathan Terence Covarrubias Primary Care Provider [phone] Encounter Details Date Type Department Care Team (Latest Contact Info) Description 02/10/2023 Travel Social History Tobacco Use Types Packs/Day [...] drink first t erin in the morning ([employer]) to steady your nerves or to get [...] Description 03/07/2024 1:40 PM EST Office Visit [facility] [place] [address] [address] [facility] [address] [facility], [address] [place] [address] Naeem Blunt MD [address] [place] [address] documented as of this encounter Visit Diagnoses Not on filedocumented in this encounter Additional Health Concerns Infection Onset Date Last Indicated Resolved Time MRSA Comment:Positive blood culture 03/03/2019 01/30/2024 Assessment Noted Time A Body Mass Index follow-up plan has been documented for the patient 02/12/2023 12:32 PM EST documented as of this encounter Care Teams Floor Coverings Installer Relationship Specialty Start Date End Date Terence Ring [address] [place], [place] [id number] PCP - General 08/09/20 03/23/23 documented as of this encounter
--- OUTSIDE RECORDS SUMMARY | 2024-02-23 18:58 | XMS_ITS | Encounter Summary ---
Author Organization [facility] Address [address] [place] [address] Care Team Providers Care Knowledge Management Advisor Name Role Phone Terence Ring Primary Care Provider [phone] Reason for Referral * Home Health (Routine) - Authorized Specialty Diagnoses / Procedures Referred By Contac t Referred To Contact Home Health Services / Case Management Diagnoses Acute respiratory failure with hypoxia (CMS/HCC) Harlan Ricketts MD [address] [place] [phone] Phone: tel: fax: Referral ID Status Reason Start Date Expiration Date Visits Requested Visits Authorized Authorized Specialty Services Required 3 08/13/2024 999 999 * Consultation (Routine) - Authorized Specialty Diagnoses / Procedures Referred By Contac t Referred To Contact Nephrology Diagnoses Acute respiratory failure with hypoxia (CMS/HCC) Harlan Ricketts MD [address] [place] [phone] Phone: tel: fax: [facility] Nephrology, Bone & Mineral Metabolism [address], [address] [place] [address] Phone: tel: fax: Referral ID Status Reason Start Date Expiration Date Visits Requested Visits Authorized [id number] Authorized Specialty Services Required 3 08/13/2024 1 1 Reason for Visit * Reason Comments Shortness of Breath * Auth/Cert (Routine) Specialty Diagnoses / Procedures Referred By Contac t Referred To Contact Diagnoses Acute respiratory failure with hypoxia (CMS/HCC) n-stemi and COPD exacerbation Cary Restrepo MD [address] [place] [address] Phone: tel: fax: [facility] Emergency Department [address] [place] [address] Phone: tel: Referral ID Status Reason Start Date Expiration Date Visits Re quested Visits Authorized [id number] 1 1 Encounter Details Date Type Department Care Team (Late st Contact Info) Description 02/03/2023 6:36 AM EST - 02/12/2023 3:01 PM EST Hospital Encounter [facility] Inpatient [address] [place] [address] Don Jeffries MD [facility] [place] [address] Niko Rodriguez MD [facility] [place] [id number] Cary Restrepo MD [address] [place] [address] Darrin Mitchell MD [address] [place] [address] Harlan Ricketts MD [address] [place] [address] Shortness of breath (Primary Dx); Acute respiratory failure with hypoxia (CMS/HCC) Discharge Disposition: Home-Health Care c Social History Tobacco Use Types Packs/Day Years [...] slept in a prison (including now)? No 02/05/2023 CAGE ASSESSMENT Answer [...] drink first t erin in the morning (EYE-WASH TANK TENDER) to steady your nerves or to get rid of a hangover? 0 02/05/2023 CAGE Questionnaire Score 0 023 Utilities Answer Date Recorded In the past 12 months has th e [employer], gas, oil, or water company threatened to shut off services in your home? No 02/05/2023 Sex and Gender Information Value Date Recorded Sex Assigned at Not on file Legal Sex Male 8:15 PM EDT Gender Identity Not on file Sexual Orientation Not on file documented as of this encounter Last Filed Vital Signs Vital Sign Reading Time Taken Comments Blood Pressure 129/80 02/12/2023 11:12 AM EST Pulse 73 02/12/2023 11:12 AM EST Temperature 36.8 ??C (98.2 ??F) 02/12/2023 11:[address] Respiratory Rate 16 02/12/2023 4:41 AM EST Oxygen Saturation 100% 02/12/2023 11:12 AM EST Inhaled Oxygen Concentration - - Weight 79.5 kg (175 lb 4.3 oz) 02/11/2023 6:00 A M EST Height 182.9 cm (6') 02/05/2023 3:27 PM EST Body Mass Index 23.77 02/05/2023 3:27 PM EST documented in this encounter Discharge Instructions * Attachments The following attachments cannot be sent through Care Everywhere. * Taking Your Medicines After a Heart Attack (Luxembourger) * Aspirin Chewable Tablet (UK) (Luxembourger) * Clopidogrel Bisulfate Oral Tablet (UK) (Luxembourger) * Atorvastatin Calcium Oral Tablet (UK) (Luxembourger) * Carvedilol Oral Tablet (UK) (Luxembourger) * Nitroglycerin Sublingual Tablet (UK) (Luxembourger) * Hydralazine Oral Tablet (Luxembourger) * Isosorbide Dinitrate Oral Tablet (Luxembourger) documented in this encounter Medications at Time [...] mouth 1 (one) time each day. 4 entecavir (Baraclude) 0.5 MG tablet Take 1 tablet (0.5 mg) by mouth every 3rd (third) day. 10 tablet 1 02/12/2023 3 furosemide (Lasix) 40 MG tablet Take 1 tablet (40 mg) by mouth 1 (one) time each day if needed (for weight gain of 3 lbs in 1 day or 5 lbs in 1 week). 30 tablet 1 02/12/2023 3 hydrALAZINE (Apresoline) 50 MG tablet Take 1 tablet (50 mg) by mouth 3 (three) times a day. 90 tablet 11 02/12/2023 4 insulin aspart (NovoLOG FlexPen ReliOn) 100 UNIT/ML injection pen Inject 5 Units under the skin 3 (three) times a day. 15 mL 1 02/12/2023 3 insulin detemir (Levemir) 100 UNIT/ML injection pen Inject 7-8 Units under the skin every night. 06/12/2020 4 insulin detemir (Levemir) 100 UNIT/ML injection vial Inject 13 Units under the skin 1 (one) time each day. 10 mL 1 02/12/2023 3 isosorbide dinitrate (Isordil) 40 MG tablet Take 1 tablet (40 mg) by mouth 3 (three) times a day. 90 tablet 11 02/12/2023 4 Umeclidinium Orma (Incruse Ellipta) 62.5 MCG/ACT aerosol powder Inhale 1 Inhalation 1 (one) time each day. 7 each 1 02/12/2023 4 documented as of this encounter Miscellaneous Notes * Progress Notes - Sirisha Chong RN - 02/12/2023 1:43 PM EST Case Management Adult Progress Note Robert Hurley 57 y.o. male CSN: [id number] Admission: 02/03/2023 6:36 AM Primary Problem: Acute respiratory failure with hypoxia (CMS/HCC) Anticipated Discharge Date: Today Additional Comments: RN CM sent Home Health PT/OT referrals via [employer]. Acceptance is pending. SW/RN CM will follow and arrange any discharge needs closer to discharge. Sirisha Chong RN * Discharge Summary - Josh Mcmanus MD - 02/12/2023 1:32 PM EST Hospitalization Admit Date/Time: 02/03/2023 6:36 AM Admitting Attending: Cary Restrepo Discharge Date: 02/12/23 Discharge Attending Physician: Harlan Ricketts MD PCP name and Address: Terence Ring [facility] [address] [place] [address] Referring provider name and address: John Odom MD [place], [place] Chief Concern, Brief History of Present Illness, and Hospital Course Robert Hurley is a 57 y.o. male with a PMH of COPD, HTN, HFrEF (unknown EF), T2DM, HLD, CAD c/b Mis/p 2x stents (most recently ~2017 per patient), cirrhosis, depression, and left AKA who presents from OSH with SOA and acute respiratory distress. Pt was admitted on 02/01 at OSH ICU for suspected pneumonia and being treated with Azithromycin and Rocephin but left AMA on 02/02. Overnight his SOA worsened at which point he went to OSH ED and was then transferred to ED on 02/03/23. Pt was transferred due to troponin increase from 200 to 900 and for PCI-capable facility. Pt was admitted to the hospital medicine team and was found to be hypoxic requiring BiPAP and high flow along with bilateral pleural effusions and reticular opacities. BNP of 67,760. Pt was diuresed due to presumed heart failure exacerbation along with continuation of antibiotic of Rocephin and Azithromycin for CAP. Pt continued to improve and was weaned down to RA with IV diuresis. Pt was transferred to cardiology service due to echocardiogram findings and concern for Type 1 NSTEMI. Echo displayed EF of 32% with moderate aortic regurgitation and moderate to severe mitral regurgitation. Aortic valve appear calcified with possible mass on valve. Echo prior to admission, EF was noted above 50%. Pt was placed on GDMT for afterload reduction with Isordil and Hydralazine along with Coreg. Due to kidney function, farxiga, NARESH/ARB and Spironolactone were held. EDD was ordered and completed to evaluate mass which displayed calcified aortic valve without vegetation. Pt was also evaluated for possible heart cath due to possible NSTEMI with elevated troponin and diffuse T wave inversions. However, pt's creatinine continued after euvolemia was met and diuretics were discontinued. Cr baseline was difficult to determinedue to lack of past medical labs. However, Cr leveled off at 3.1-3.2. Renal US, doppler and urine protein was examined without acute findings. Determination was made to discharge patient on medical therapy for NSTEMI, as he was out of the window for intervention due to lack of ability for cath due to acute on chronic kidney disease. Pt was discharged with Coreg, Hydralazine and Isordil. Losartan,SGLT-2, and Spironolactone were held due to kidney function to be reviewed as outpatient for CKD. Diuretic was made as PRN dosage. He was continued on medical therapy for NSTEMI with aspirin, plavix,atorvastatin and Coreg. Pt to follow-up with cardiology and nephrology. #HFrEF # HFrEF Exacerbation- Resolved. # Acute [...] ; will make diuretic PRN until follow-up. # Possible Non-ST elevation acute myocardial infarction # Peripheral Arterial Disease s/p L AKA -- Pt has established history of CAD with PCI 2017 - aspirin 81 mg daily - plavix 75 mg daily - Atorvastatin 80 - Continued Coreg 12.5 dose - Due to kidney function, will defer cath at this time. To follow-up in cardiology clinic for further work-up. Treat with medical management as seen above. # KOKO due to ATN on CKD -- secondary to diabetic nephropathy and HTN nephropathy with acute tubular necrosis -- Renal US without acute findings. - liberal oral fluids and allow for slightly higher blood pressure to encourage renal recovery - Will have pt followup with renal. # Calcified Aortic Valve Mass # Moderate Aortic Regurgitation with flail NC cusp # Moderate to severe Mitral Regurgitation (Terrence 3b) - Blood cultures negative - EDD displayed calcified aortic valve. # T2DM - Will continue insulin therapy # HTN - Pt was previously on clonidine at home; tapered. - Will continue Hydralazine 50 TID and Isoridil. Coreg 12.5 - Will hold Losartan 20 and Amlodipine and hydrochlorothiazide 25 # COPD - schedule tiotropium - albuterol PRN - consider LABA # Cirrhosis -- CAMACHO vs Chronic Hep B: - Will continue Entecavir tomorrow after kidney function review; renally dosed. Surgeries and Procedures Procedures performed in this encounter Procedures POC Ultrasound - Bedside Medication List .. aspirin 81 MG chewable [...] 62.5 MCG/ACT aerosol powder Generic drug: Umeclidinium Orma Inhale 1 Inhalation 1 (one) time each [...] Your Medications These medications were sent to [facility] [place], [place] - [address] [facility] [address] [facility] [id number] aspirin 81 MG chewable tablet atorvastatin 80 MG tablet carvedilol 12.5 MG tablet entecavir 0.5 MG tablet furosemide 40 MG tablet hydrALAZINE 50 MG tablet Incruse Ellipta 62.5 MCG/ACT aerosol powder isosorbide dinitrate 40 MG tablet Levemir 100 UNIT/ML injection vial NovoLOG FlexPen ReliOn 100 UNIT/ML injection pen Discharge Diagnosis Medical Problems Active and Resolved Hospital Problems Hospital * (Principal) Acute respiratory failure with hypoxia (CMS/HCC) Shortness of breath Post Discharge Instructions Cardiology Appointment on 02/16 Renal Appointment on 12/18 Outpatient Follow-Up Future Appointments Date Time Provider Department Center 03/15/2023 3:00 PM [facility] (2) [facility] PAC Test Results Pending At Discharge None. Pertinent Physical Exam At Time of Discharge Physical Exam Constitutional: Appearance: Normal appearance. HENT: Nose: Nose normal. Mouth/Throat: Mouth: Mucous membranes are moist. Cardiovascular: Rate and Rhythm: Normal rate. Pulmonary: Effort: Pulmonary effort is normal. Breath sounds: Normal breath sounds. Abdominal: General: Abdomen is flat. Bowel sounds are normal. Palpations: Abdomen is soft. Musculoskeletal: General: Normal range of motion. Right lower leg: No edema. Comments: Chronic venous stasis dermatitis on right LE Skin: General: Skin is warm. Neurological: General: No focal deficit present. Mental Status: He is alert and oriented to person, place, and time. Psychiatric: Mood and Affect: Mood normal. Discharge Disposition/Condition Disposition: Home Condition: Stable (s/sx potential problems absent or manageable) I spent >30 minutes of patient care and instruction time in preparation for this discharge. Cosigned by Harlan Ricketts MD at 02/12/2023 3:53 PM EST Associated attestation - Harlan Ricketts MD - 02/12/2023 3:53 PM EST I saw and evaluated the patient with the resident/fellow. I discussed the case with the resident/fellow and agree with the findings and plan as documented. I spent >30 minutes of patient care and instruction time in preparation for this discharge. Patient is a 57 yo M a/w respiratory failure 2/2 pulm edema on 02/03 to [facility]. He has a PMH of CADs/p PCI, HFmrEF, COPD, DMII, CAMACHO cirrhosis, left AKA. He required BiPAP for resp support and high dose diuretics. Pt Transferred to [facility] on 02/05 due to concern for type I NSTEMI and echo showing EF 32% (previously 50% per OSH report), 3+ MR, and possible AV mass. By personal review of TTE, EF is moderately reduced and there is mild MR and mild to moderate AR. The AV was calcified and there was apossible mass. Presentation is not consistent with infective endocarditis. Course was complicated by KOKO due to ATN. EDD showed no evidence of aortic valve mass. The leaflets were calcified. Both aortic and mitral regurgitation were mild in severity. LV systolic function modestly improved compared to recent transthoracic. LVEF is likely around 40-45% with regional wall motion abnormalities involving the inferior and inferolateral taylor. Unfortunately renal function plateaued with a serum creatinine around 3.0-3.2. Suspect that this may be his baseline creatinine now. We discussed the utility of cardiac catheterization for a possible NSTEMI event that occurred > a week ago. Given that we are out of the acute window and he has advanced renal disease, decided to manage medically and forego cardiac catheterization. Patient was agreeable to this plan. He was euvolemic appearing on the dayof discharge. He will need close follow up with local head cashier and nephrology, with close monitoring of renal function as an outpatient. * Progress Notes - Amanda Barriga - 02/12/2023 1:27 PM EST Occupational Therapy Treatment Patient Name: Robert Hurley Today's Date: 02/12/2023 OT Discharge Recommendations: Home with assistance, Home health PT, Home health OT Equipment Recommended: Patient owns appropriate equipment Subjective Pt agreeable to OT session. Participants in Care Family/Caregiver Present: No Presentation Oxygen Therapy: None (Room air) Lines and Tubes: Intravenous access Pre-Session: Sitting in chair Post-Session: Lines intact, Sitting in chair, RN notified, Call light in reach Precautions Medical Precautions: Fall precautions Objective Pain No complaints of pain. Delirium Screening Mckinley Agitation Sedation Scale (RASS): Alert and calm Confusion Assessment Method-ICU (CAM-ICU/PCAM-ICU) Feature 3: Altered Level of Consciousness: Negative Cognition Cognition Overall Cognitive Status: Within Functional Limits Arousal/Alertness: Appropriate responses to stimuli Mood/Behavior: Alert Orientation Level: Oriented X4 Single Step Commands: Consistently Multi-Step Commands: Consistently Method of Communication: Verbal Therapeutic Activity (14 minutes) Pt participated in functional endurance tasks in preparation for high level ADLs. Pt completed sit to stand transfers with CGA and cues for safety. Pt navigated in hallway to simulate home environment. Pt required CGA using RW. Cues provided for safety and sequencing. Pt navigated ~20 ft during session. Assessment Pt seen for mobility tasks during session in anticipation of DC home. Discussed home safety techniques and DME use. Pt reports he predominately transfers to wheelchair only and ambulates very little.Pt with plan to DC today. OT Recommendations Discharge Destination: Home with assistance, Home health PT, Home health OT Discharge Equipment: Patient owns appropriate equipment Plan Continue OT POC during admission. Goals OT GOAL DETAILS Goal Established Date Time Frame Goal Status OT Goal 1: Pt will complete toilet transfers with modified independence. 02/12/23 2 weeks OT Goal 2: Pt will complete LB dressing tasks independently. 02/12/23 2 weeks OT Goal 3: Pt will complete toileting tasks independently. 02/12/23 2 weeks Written by Amanda Barriga on 02/12/23 at 1:31 PM. * Progress Notes - Rosalind Sanchez, PT - 02/12/2023 1:26 PM EST Physical Therapy Evaluation Patient Name: Robert Hurley Today's Date: 02/12/2023 PT Discharge Recommendations: Home with assistance, Outpatient OT, Home health PT Equipment Recommended: Patient owns appropriate equipment (recommended use of RW upon d/c) History Robert Hurley is 57 y.o. male admitted 02/03/2023 for work-up of Acute respiratory failure with hypoxia (CMS/HCC). Problem List Active Hospital Problems Diagnosis Date Noted Shortness of breath Acute respiratory failure with hypoxia (CMS/HCC) 02/03/2023 Past 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 Patient has a past [...] (N/A). Precautions Medical Precautions: Fall precautions Subjective My leg is charged up. Pt and RN agreeable to PT services this date. Participants in Care Family/Caregiver Present: No Presentation Oxygen Therapy: None (Room air) O2 Delivery Method: Nasal cannula O2 Flow Rate (L/min): 2 L/min Lines and Tubes: Intravenous access Pre-Session: Sitting in chair Post-Session: Lines intact, Sitting in chair, RN notified, Call light in reach Home Living/Set-up Lives With: Alone Home Type: Apartment Home Adaptive Equipment: Cane, Wheelchair-manual, shower chair Home Layout: One level Home Living Comments: son can provide assist Prior Level of Function Receives Help From: No assist required prior to admission Level of Mobility: Ambulatory- household only Mobility Summit: Independent gait with device History of Falls: No ADL Performance: Independent Patient/Family Goals to return home Objective Pain Pt endorsed pain at PIV. RN aware. Pt positioned for comfort at [...] limits Sensation Light Touch: Right Lower Extremity: Intact Left Lower Extremity Examination LLE Assessment: Within Functional Limits Manual Muscle Testing: (L AKA, hip WFL) Sensation Light Touch: Left Lower Extremity: Intact Transfers Transfer Exam: Sit to stand Level of Summit: Contact guard (x2 reps; requiring increased time to achieve 100% upright) Physical/Nonphysical Assist: Verbal Cues Transfer Exam: Stand to Sit Level of Summit: Contact guard Physical/Nonphysical Assist: Verbal Cues Gait Training (10 minutes) Device: Rolling walker Assistance: Contact guard assist Distance: 20 ft Gait Analysis: excessive lateral weight shifting, decreased LLE stance time, mild to moderate forward trunk lean, shuffling gait, decreased gait speed Gait Training Interventions: cues provided for upright posture and safe use of RW during ambulation Pt required cueing for safe navigation of obstacles in room/hallway during ambulation. Pt initiallybegan ambulation with use of SPC on right side. Demo'd heavy lateral lean onto cane as well as difficulty advancing LLE. RW introduced and overall quality of gait significantly improved. Standardized Assessments Standardized Assessments Standardized Assessments: [facility] 6-Clicks Mobility Assessment [facility] 6-Clicks Mobility Assessment Difficulty patient has [...] 3-5 steps with a railing?: A lot [facility] 6-Clicks Mobility Assessment Total : 17 Assessment Most limited by decreased balance and activity tolerance. VSS. Pt is a fall risk. Will progress mobility as appropriate. Pt would continue to benefit from skilled PT services to decrease fall risk and promote independence with functional mobility, in order to maximize potential level of function. Impairments: Decreased endurance, ventilation, and/or gas exchange, Impaired gait dynamics/performance, Impaired functional mobility/transfers, Impaired balance Activity Limitations: Inability to sit independently, Inability [...] stated therapy goals Eval Complexity History Profile: No personal factors and/or comorbidities Clinical Presentation: Stable and/or uncomplicated characteristics Clinical Decision Making: Low complexity PT Recommendations Discharge Destination: Home with assistance, Outpatient OT, Home health PT Discharge Equipment: Patient owns appropriate equipment (recommended use of RW upon d/c) Plan Planned PT Interventions Balance training, Bed mobility training, Gait training, Transfer training, Functional Mobility PT Frequency 2 - 5 times per week PT Duration 2 weeks Goals PT GOAL DETAILS Time Frame PT Goal 1: Pt will be independent with HEP and d/c recs. 2 weeks PT Goal 2: Pt will perform sit to stand and bed to chair transfers with Magaly and LRD. 2 weeks PT Goal 3: Pt will ambulate 150 ft with Magaly and LRD. 2 weeks Written by Rosalind Sanchez, PT on 02/12/23 at 2:49 PM. * Progress Notes - Sirisha Chong RN - 02/12/2023 11:02 AM EST Case Management Discharge Note Robert Hurley 57 y.o. male CSN: [id number] Admission: 02/03/2023 6:36 AM Primary Problem: Acute respiratory failure with hypoxia (CMS/HCC) Primary Tool Crib Attendant: Primary Caregiver: Self Assistance Available at Discharge: Availability of Care Givers (#Hours): 5-9 hours Family/Tool Crib Attendant(s) Willingness Assessed to care for patient at home: Yes Housing Circumstances-Z Codes: Housing Circumstances (select all that apply): Low Income (101-300% Federal Poverty Guidlines) - Z596 Discharge Facility/Level of Care Needs: Discharge Facility/Level of Care Needs: 1-Home or Self Care Patient's Choice of Community Agency(s): Patient's Choice of Community Agency(s): N/A Patient/Family Anticipated Services at Transition: Patient/Family Anticipated Services at Transition: none DME/Equipment Needed after Discharge: Equipment Currently Used at Home: prosthesis Equipment Needed After Discharge: none Readmission Within the Last 30 Days: Readmission Within the Last 30 Days: no previous admission in last 30 days Follow-up: John Odom MD [facility] [facility] Nephrology, Bone & Mineral Metabolism [address], [address] [facility] [address] Discharge Transportation: Transportation Anticipated: family or friend will provide Transportation Home at Discharge: Family/Friend will Provide Has discharge transport been arranged?: No Follow Up Transport: Transportation Needed to Follow up Appoinments: Family/Friend will Provide Additional Comments: Chart review completed. JAME WHITMORE attended rounding this AM to discuss POC with MD. The patient is expected to be discharged today. The patient has agreed to the plan. The patient's family will provide transport at discharge. JAME WHITMORE provided a one month medication voucher for Isordil #90. Patient meets 300% FPG. FPL form in chart. Voucher sent to Meds to Beds. The patient is enrolled in the [facility] Transitional Care program under the Transitional Care Model. Transitions will assist with support and education at the time of discharge. Patient states that his prosthesis cloth shrinking tester is missing currently. Per bedside nurse, the PT team was trying to locate the cloth shrinking tester. RN MYRANDA reached out to the Process Development Technician, Lost and Found, Housekeeping, and EVS but all stated they didn't have a cloth shrinking tester matching the description. There are no further discharge needs to be identified. The JAME WHITMORE will continue to monitor the patient's progress and provide assistance with discharge as necessary. Sirisha Chong RN UPDATE: The patient's cloth shrinking tester was found and returned to him. * Care Plan - Ashley Rodriguez RN - 02/12/2023 9:48 AM EST Problem: Adult Inpatient Plan of Care Goal: Plan of Care Review Outcome: Ongoing, Progressing Goal: Patient-Specific Goal (Individualized) Outcome: Ongoing, Progressing Goal: Absence of Hospital-Acquired Illness or Injury Outcome: Ongoing, Progressing Goal: Optimal Comfort and Wellbeing Outcome: Ongoing, Progressing Goal: Readiness for Transition of Care Outcome: Ongoing, Progressing * Progress Notes - Amanda Barriga - 02/12/2023 8:28 AM EST Occupational Therapy Evaluation Patient Name: Robert Hurley Today's Date: 02/12/2023 OT Discharge Recommendations: Pending progress Equipment Recommended: Patient owns appropriate equipment History Robert Hurley is 57 y.o. male admitted 02/03/2023 for work-up of Acute respiratory failure with hypoxia ([facility]). Problem List Active Hospital Problems Diagnosis Date Noted Shortness of breath Acute respiratory failure with hypoxia (CMS/HCC) 02/03/2023 Procedures Past 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 Patient has a [...] (N/A). Precautions Medical Precautions: Fall precautions Subjective They lost my cloth shrinking tester for my leg when they moved me rooms. Participants in Care Family/Caregiver Present: No Presentation Oxygen Therapy: Supplemental oxygen O2 Delivery Method: Nasal cannula O2 Flow Rate (L/min): 2 L/min Lines and Tubes: Intravenous access, Telemetry Pre-Session: Sitting in chair Post-Session: Sitting in chair, Lines intact, RN notified, Call light in reach Home Living/Set-up Lives With: Alone Home Type: Apartment Home Adaptive Equipment: Cane, Wheelchair-manual, shower chair Home Layout: One level Home Living Comments: son can provide assist Prior Level of Function Receives Help From: No assist required prior to admission Level of Mobility: Ambulatory- household only Mobility Summit: Independent gait with device History of Falls: No ADL Performance: Independent Patient/Family Goals Statement Pt [...] limits Sensation Light Touch: Right Lower Extremity: Intact Left Lower Extremity Examination LLE ROM Assessment LLE Assessment: Within Functional Limits Manual Muscle Testing: (L AKA, hip WFL) Sensation Light Touch: Left Lower Extremity: Intact Transfers Transfer Exam: Sit to stand Level of Summit: Contact guard Physical/Nonphysical Assist: Verbal Cues Transfer Exam: Stand to Sit Level of Summit: Contact guard Physical/Nonphysical Assist: Verbal Cues Functional Mobility Device: (pt deferred due to prosthesis cloth shrinking tester currently missing and risk of prosthesis losing charge during mobility tasks) Self-Care Interventions Grooming Grooming Level of Assistance: Independent Grooming Where Assessed: Chair level Standardized Assessments Joon Index Feeding: Independent Bathing: Dependent Grooming: Independent face/hair/teeth/shaving (implements provided) Dressing: Needs help but can do about half unaided Bowels: Continent Bladder: Continent Toilet Use: Needs some help but can do some things alone Transfers (Bed to Chair and Back): Minor help (verbal or physical) Mobility (on Level Surfaces): Immobile or < 50 yards Stairs: Unable Total Score: 55 Assessment Unable to assess ADL and mobility tasks due to pt with missing prosthesis cloth shrinking tester. Will further assess mobility as appropriate. OT Findings: Impaired ADL performance, Impaired IADL performance, Decreased endurance/ventilation/gas exchange, Impaired balance, Impaired functional mobility Evaluation/Treatment Tolerance: Other (Comment) (issues with prosthesis) Rehab Potential: Good, to achieve stated therapy goals Eval Complexity Occupational Profile: Brief history including review of medical/therapy records relating to presenting problem Performance Deficits: Activities of daily living (ADLs), Instrumental activities of daily living (IADLs) Clinical Decision Making: Low Overall Eval complexity: Low OT Recommendations Discharge Destination: Pending progress Discharge Equipment: Patient owns appropriate equipment Plan Planned OT Interventions ADL retraining, IADL retraining, Balance training, Bed mobility Training, ROM, Strengthening, Transfer training, Functional mobility OT Frequency 2 - 5 times per week OT Duration 2 weeks Goals OT GOAL DETAILS Time Frame OT Goal 1: Pt will complete toilet transfers with modified independence. 2 weeks OT Goal 2: Pt will complete LB dressing tasks independently. 2 weeks OT Goal 3: Pt will complete toileting tasks independently. 2 weeks Written by Amanda Barriga on 02/12/23 at 9:17 AM. * Care Plan - Joanie Warren RN - 02/11/2023 10:52 PM EST Problem: Adult Inpatient Plan of Care Goal: Plan of Care Review Outcome: Ongoing, Progressing Goal: Patient-Specific Goal (Individualized) Outcome: Ongoing, Progressing Goal: Absence of Hospital-Acquired Illness or Injury Outcome: Ongoing, Progressing Goal: Optimal Comfort and Wellbeing Outcome: Ongoing, Progressing Goal: Readiness for Transition of Care Outcome: Ongoing, Progressing * Progress Notes - Cameron Cabrera - 02/11/2023 2:43 PM EST Case Management Adult Progress Note Robert Hurley 57 y.o. male CSN: [id number] Admission: 02/03/2023 6:36 AM Primary Problem: Acute respiratory failure with hypoxia (CMS/HCC) Anticipated Discharge Date: TBD Additional Comments Chart review completed. SW CM attended rounding this AM to discuss POC with MD.Per the team, the patient is not medically ready for discharge at this time and the team continues to medically manage and monitor the patient. SW/RN CM will follow and arrange any discharge needs closer to discharge. Cameron Cabrera * Progress Notes - Josh Mcmanus MD - 02/11/2023 2:29 PM EST Images from the original note were not included. INPATIENT CARDIOLOGY (CA3) DAILY PROGRESS NOTE Patient is a 57 yo M a/w respiratory failure 2/2 pulm edema on 02/03 to [facility]. He has a PMH of CADs/p PCI, HFmrEF, COPD, DMII, CAMACHO cirrhosis, left AKA. He required BiPAP for resp support and high dose diuretics. Pt Tx to CA3 on 02/05 due to concern for type I NSTEMI and echo showing EF 32% (previously 50%), 3+ MR, and possible AV mass. By personal review of TTE, EF is moderately reduced and there is mild MR and mild to moderate AR. The AV is calcified and there is a possible mass. Presentation is not consistent with infective endocarditis. Course has been complicated by KOKO likely now ATN. SUBJECTIVE No acute events overnight. Pt states he is walking around without difficulty. Denies chest pain or SOA. Discussion with patient promoted discharge tomorrow after PT/OT evaluates. ROS: Pertinent ROS obtained, as noted above. OBJECTIVE Vitals Visit Vitals BP 124/75 (BP Location: Right arm, Patient Position: Sitting) Pulse 69 Temp 36.9 ??C (98.4 ??F) (Oral) Ht 1.829 m (6') Wt 79.5 kg (175 lb 4.3 oz) SpO2 97% BMI 23.77 kg/m?? Intake/Output Summary (Last 24 hours) at 02/11/2023 1430 Last data filed at 02/11/2023 0801 Gross per 24 hour Intake 290 ml Output 850 ml Net -560 ml Net IO Since Admission: -12,144.19 mL [02/11/23 1430] O2 Delivery Method: Nasal cannula Physical Exam: GENERAL: no acute distress, cooperative SKIN: warm and dry, no rashes, wounds, ulcers EYES: conjunctiva clear, EOMI, PERRLA ENT: intact, mucous membranes moist, no apparent injury HEAD/NECK: neck supple, no apparent injury, no cervical lymphadenopathy RESPIRATORY/THORAX: breath sounds equal. Nonlabored. Inspiratory/expiratory wheezes noted. Clear toauscultation. CARDIOVASCULAR: regular rate and rhythm, normal S1 and S2, no murmurs, pulses 2+, no edema noted onexamination. GASTROINTESTINAL: bowel sounds normal, soft, non-tender, no hepatosplenomegaly MUSCULOSKELETAL: no joint swelling, full range of motion in all extremities. Left leg AKA. trace pitting edema to knee on right leg- much improved from day prior. Chronic venous stasis dermatitis present on RLE. NEUROLOGICAL: CN II-IX intact grossly, interactive and normal tone PSYCHOLOGICAL: Alert & Oriented x4, appropriate mood and behavior Labs CBC: Lab Results Component Value Date WBC 5.96 02/11/2023 HGB 11.9 (L) 02/11/2023 HCT 36.3 (L) 02/11/2023 PLT 247 02/11/2023 MCV 89 02/11/2023 MCH 29.2 02/11/2023 MCHC 32.8 02/11/2023 RDW 13.5 02/11/2023 NRBC 0.0 02/11/2023 Differential: Lab Results Component Value Date WBC 5.96 02/11/2023 NEUTOPHILPCT 55.0 02/11/2023 LYMPHOPCT 31.0 02/11/2023 MONOPCT 11.0 02/11/2023 EOSPCT 2.0 02/11/2023 NEUTROABS 3.32 02/11/2023 Coagulation: No results found for: INR , PT , PTT , CLFGN Renal: Lab Results Component Value Date NA 142 02/11/2023 K 4.5 02/11/2023 CL 105 02/11/2023 CO2 23 02/11/2023 BUN 59 (H) 02/11/2023 CREATININE 3.19 (H) 02/11/2023 GLUCOSE 156 (H) 02/11/2023 CALCIUM 9.1 02/11/2023 MG 2.3 02/11/2023 Liver: Lab Results Component Value Date AST 47 02/11/2023 ALT 26 02/11/2023 BILITOT 0.7 02/11/2023 Glucose: Lab Results Component Value Date PGLU 111 (H) 02/11/2023 PGLU 127 (H) 02/11/2023 PGLU 183 (H) 02/10/2023 PGLU 151 (H) 02/10/2023 PGLU 115 (H) 02/10/2023 Lab Results Component Value Date HGBA1C 6.6 (H) 02/03/2023 Imaging Echo, Adult Transesophageal (EDD) Final Result VAS US Renal Artery Duplex Final Result Right: No evidence of a hemodynamically significant renal artery stenosis. Kidney size is within normal limits. Parenchymal flow is not detected. Left: No evidence of a hemodynamically significant renal artery stenosis. Kidney size is within normal limits. COMMUNICATION: Per this written report. Preliminary report signed by CAROLE BLANTON on 02/08/2023 4:27 PM By electronically signing this report, I, the attending physician, attest that I have personally reviewed the images/data for the above examination(s) and I agree with the final edited report. Drafted by CAROLE BLANTON on 02/08/2023 4:24 PM Final report signed by Clementina Galeano MD on 02/08/2023 6:28 PM US Renal Complete Final Result No hydronephrosis. CRITICAL RESULT: No. COMMUNICATION: Per this written report. Drafted by Kamila Mackenzie MD on 02/06/2023 4:32 PM Final report signed by Kamila Mackenzie MD on 02/06/2023 4:33 PM Echo, Adult Transthoracic Complete Final Result XR Chest 1 View Final Result Redemonstrated bilateral airspace opacities, improved on the left. CRITICAL RESULT: No. COMMUNICATION: Per this written report. By electronically signing this report, I, the attending physician, attest that I have personally reviewed the images/data for the above examination(s) and agree with the final edited report. Drafted by Macrina Dao MD on 02/04/2023 8:37 AM Final report signed by Douglas Norman MD on 02/04/2023 9:29 AM XR Chest 1 View Final Result Cardiomegaly with pulmonary vascular congestion. Bilateral ill-defined airspace opacities and diffuse interstitial opacification similar to the previous CT scan from February 2019. Most likely there is underlying chronic lung disease. Consider pulmonary edema versus multifocal infection. CRITICAL RESULT: No. COMMUNICATION: Per this written report. By electronically signing this report, I, the attending physician, attest that I have personally reviewed the images/data for the above examination(s) and agree with the final edited report. Drafted by Macrina Dao MD on 02/03/2023 8:08 AM Final report signed by Tess Connelly MD on 02/03/2023 10:[address] Angio Pulmonary Embolism Final Result No pulmonary embolism. Diffuse pulmonary edema/pneumonia as described above. Small bilateral pleural fluid collections. Several intermediate size lymph nodes in the mediastinum are most likely reactive. Mild cardiomegaly. Calcifications in the coronary arteries. CRITICAL RESULT: No. COMMUNICATION: Per this written report. Drafted by Tess Connelly MD on 02/03/2023 8:49 AM Final report signed by Tess Connelly MD on 02/03/2023 8:59 AM ASSESSMENT/PLAN Robert Hurley is a 57 yoM with PMH COPD, HTN, HFrEF, T2DM, HLD, CAD s/p stents, [place], CAMACHO cirrhosis, depression, and left AKA presents with acute hypoxic respiratory failure secondary to HFrEF exacerbation and possible Type 1 NSTEMI. #HFrEF # HFrEF Exacerbation- Resolved. # Acute [...] EF of 40-45% with LV global hypokinesis Plan: - Pt appears to be euvolemic with lung and peripheral examination. - Will continue Isordil and increase Hydralazine for afterload reduction. - Will increase Coreg to 12.5. - Will defer Losartan, SGLT-2, and Spironolactone at this time due to kidney function. Will reassess kidney function. If stable then would start GDMT, as possibly pt's baseline kidney function secondary to CKD. - Discharge tomorrow - Follow up with cardiology ; will make diuretic PRN until follow-up. # Possible Non-ST elevation acute myocardial infarction # Peripheral Arterial Disease s/p L AKA -- Pt has established history of CAD with PCI 2017 - aspirin 81 mg daily - plavix 75 mg daily - Atorvastatin 80 - s/p heparin GTT for 48 hrs - Continued Coreg 12.5 dose - Due to kidney function, will defer cath at this time. To follow-up in cardiology clinic for further work-up. # KOKO due to ATN on CKD -- secondary to diabetic nephropathy and HTN nephropathy with acute tubular necrosis -- Renal US without acute findings. - liberal oral fluids and allow for slightly higher blood pressure to encourage renal recovery - Will have pt followup with renal. # Calcified Aortic Valve Mass # Moderate Aortic Regurgitation with flail NC cusp # Moderate to severe Mitral Regurgitation (Terrence 3b) - Blood cultures negative - EDD displayed calcified aortic valve. # T2DM - Will continue insulin therapy # HTN - Pt was previously on clonidine at home; tapered. - Will continue Hydralazine 50 TID and Isoridil. Coreg 12.5 - Will hold Losartan 20 and Amlodipine and hydrochlorothiazide 25 # COPD - schedule tiotropium - albuterol PRN - consider LABA # Cirrhosis -- CAMACHO vs Chronic Hep B: - Will continue Entecavir tomorrow after kidney function review F: PO E: monitor and replete PRN N: NPO DVT ppx: Heparin Code Status: full Dispo: D/C Tomorrow. Cosigned by Harlan Ricketts MD at 02/11/2023 4:30 PM EST Associated attestation - Harlan Ricketts MD - 02/11/2023 4:30 PM EST I saw and evaluated the patient with the resident/fellow. I discussed the case with the resident/fellow and agree with the findings and plan as documented. EDD completed yesterday and showed no evidence of aortic valve mass. The leaflets are calcified. Both aortic and mitral regurgitation were mild in severity. LV systolic function modestly improved compared to recent transthoracic. LVEF is likely around 40-45% with regional wall motion abnormalities involving the inferior and inferolateral taylor. Unfortunately renal function seems to have plateauedwith a serum creatinine around 3.0. Suspect that this may be his baseline creatinine now. We discussed the utility of cardiac catheterization for a possible NSTEMI event that occurred > a week ago. Given that we are out of the acute window and he has advanced renal disease, decided to manage medically and forego cardiac catheterization. Patient was agreeable to this plan. * Care Plan - Radha Crowley - 02/11/2023 10:49 AM EST Problem: Adult Inpatient Plan of Care Goal: Absence of Hospital-Acquired Illness or Injury Outcome: Ongoing, Progressing Goal: Optimal Comfort and Wellbeing Outcome: Ongoing, Progressing Goal: Readiness for Transition of Care Outcome: Ongoing, Progressing * Care Plan - Joanie Warren RN - 02/10/2023 9:50 PM EST Problem: Adult Inpatient Plan of Care Goal: Plan of Care Review Outcome: Ongoing, Progressing Goal: Patient-Specific Goal (Individualized) Outcome: Ongoing, Progressing Goal: Absence of Hospital-Acquired Illness or Injury Outcome: Ongoing, Progressing Goal: Optimal Comfort and Wellbeing Outcome: Ongoing, Progressing Goal: Readiness for Transition of Care Outcome: Ongoing, Progressing * Progress Notes - Josh Mcmanus MD - 02/10/2023 1:15 PM EST Images from the original note were not included. INPATIENT CARDIOLOGY (CA3) DAILY PROGRESS NOTE Patient is a 57 yo M a/w respiratory failure 2/2 pulm edema on 02/03 to [facility]. He has a PMH of CADs/p PCI, HFmrEF, COPD, DMII, CAMACHO cirrhosis, left AKA. He required BiPAP for resp support and high dose diuretics. Pt Tx to CA3 on 02/05 due to concern for type I NSTEMI and echo showing EF 32% (previously 50%), 3+ MR, and possible AV mass. By personal review of TTE, EF is moderately reduced and there is mild MR and mild to moderate AR. The AV is calcified and there is a possible mass. Presentation is not consistent with infective endocarditis. Course has been complicated by KOKO likely now ATN. SUBJECTIVE No acute events overnight. Pt is doing well and on 2L of NC with >95%. Pt denies chest pain or SOA. Cr has improved today. EDD today. ROS: Pertinent ROS obtained, as noted above. OBJECTIVE Vitals Visit Vitals BP 101/72 Pulse 81 Temp 36.7 ??C (98 ??F) (Oral) Ht 1.829 m (6') Wt 84.5 kg (186 lb 4.6 oz) SpO2 100% BMI 25.27 kg/m?? Intake/Output Summary (Last 24 hours) at 02/10/2023 1315 Last data filed at 02/10/2023 0900 Gross per 24 hour Intake 720 ml Output 1675 ml Net -955 ml Net IO Since Admission: -11,584.19 mL [02/10/23 1315] O2 Delivery Method: Nasal cannula Physical Exam: GENERAL: no acute distress, cooperative SKIN: warm and dry, no rashes, wounds, ulcers EYES: conjunctiva clear, EOMI, PERRLA ENT: intact, mucous membranes moist, no apparent injury HEAD/NECK: neck supple, no apparent injury, no cervical lymphadenopathy RESPIRATORY/THORAX: breath sounds equal. Nonlabored. Inspiratory/expiratory wheezes noted. Clear toauscultation. CARDIOVASCULAR: regular rate and rhythm, normal S1 and S2, no murmurs, pulses 2+, no edema noted onexamination. GASTROINTESTINAL: bowel sounds normal, soft, non-tender, no hepatosplenomegaly MUSCULOSKELETAL: no joint swelling, full range of motion in all extremities. Left leg AKA. trace pitting edema to knee on right leg- much improved from day prior. Chronic venous stasis dermatitis present on RLE. NEUROLOGICAL: CN II-IX intact grossly, interactive and normal tone PSYCHOLOGICAL: Alert & Oriented x4, appropriate mood and behavior Labs CBC: Lab Results Component Value Date WBC 4.96 02/10/2023 HGB 10.9 (L) 02/10/2023 HCT 33.4 (L) 02/10/2023 PLT 203 02/10/2023 MCV 88 02/10/2023 MCH 28.6 02/10/2023 MCHC 32.6 02/10/2023 RDW 13.5 02/10/2023 NRBC 0.0 02/10/2023 Differential: Lab Results Component Value Date WBC 4.96 02/10/2023 Coagulation: No results found for: INR , PT , PTT , CLFGN Renal: Lab Results Component Value Date NA 142 02/10/2023 K 4.4 02/10/2023 CL 107 02/10/2023 CO2 27 02/10/2023 BUN 64 (H) 02/10/2023 CREATININE 3.02 (H) 02/10/2023 GLUCOSE 86 02/10/2023 CALCIUM 8.8 (L) 02/10/2023 MG 2.4 02/10/2023 Liver: Lab Results Component Value Date AST 44 02/10/2023 ALT 28 02/10/2023 BILITOT 0.6 02/10/2023 Glucose: Lab Results Component Value Date PGLU 91 02/10/2023 PGLU 213 (H) 02/09/2023 PGLU 118 (H) 02/09/2023 Lab Results Component Value Date HGBA1C 6.6 (H) 02/03/2023 Imaging VAS US Renal Artery Duplex Final Result Right: No evidence of a hemodynamically significant renal artery stenosis. Kidney size is within normal limits. Parenchymal flow is not detected. Left: No evidence of a hemodynamically significant renal artery stenosis. Kidney size is within normal limits. COMMUNICATION: Per this written report. Preliminary report signed by CAROLE BLANTON on 02/08/2023 4:27 PM By electronically signing this report, I, the attending physician, attest that I have personally reviewed the images/data for the above examination(s) and I agree with the final edited report. Drafted by CAROLE BLANTON on 02/08/2023 4:24 PM Final report signed by Clementina Galeano MD on 02/08/2023 6:28 PM US Renal Complete Final Result No hydronephrosis. CRITICAL RESULT: No. COMMUNICATION: Per this written report. Drafted by Kamila Mackenzie MD on 02/06/2023 4:32 PM Final report signed by Kamila Mackenzie MD on 02/06/2023 4:33 PM Echo, Adult Transthoracic Complete Final Result XR Chest 1 View Final Result Redemonstrated bilateral airspace opacities, improved on the left. CRITICAL RESULT: No. COMMUNICATION: Per this written report. By electronically signing this report, I, the attending physician, attest that I have personally reviewed the images/data for the above examination(s) and agree with the final edited report. Drafted by Macrina Dao MD on 02/04/2023 8:37 AM Final report signed by Douglas Norman MD on 02/04/2023 9:29 AM XR Chest 1 View Final Result Cardiomegaly with pulmonary vascular congestion. Bilateral ill-defined airspace opacities and diffuse interstitial opacification similar to the previous CT scan from February 2019. Most likely there is underlying chronic lung disease. Consider pulmonary edema versus multifocal infection. CRITICAL RESULT: No. COMMUNICATION: Per this written report. By electronically signing this report, I, the attending physician, attest that I have personally reviewed the images/data for the above examination(s) and agree with the final edited report. Drafted by Macrina Dao MD on 02/03/2023 8:08 AM Final report signed by Tess Connelly MD on 02/03/2023 10:[address] Angio Pulmonary Embolism Final Result No pulmonary embolism. Diffuse pulmonary edema/pneumonia as described above. Small bilateral pleural fluid collections. Several intermediate size lymph nodes in the mediastinum are most likely reactive. Mild cardiomegaly. Calcifications in the coronary arteries. CRITICAL RESULT: No. COMMUNICATION: Per this written report. Drafted by Tess Connelly MD on 02/03/2023 8:49 AM Final report signed by Tess Connelly MD on 02/03/2023 8:59 AM Echo, Adult Transesophageal (EDD) (Results Pending) Echo, Adult Transesophageal (EDD) (Results Pending) ASSESSMENT/PLAN Robert Hurley is a 57 yoM with PMH COPD, HTN, HFrEF, T2DM, HLD, CAD s/p stents, [place], CAMACHO cirrhosis, depression, and left AKA presents with acute hypoxic respiratory failure secondary to HFrEF exacerbation and possible Type 1 NSTEMI. #Acute Heart Failure - LVEF noted >50% at OSH prior [...] be 50% at OSH 2 days ago. Plan: - Pt appears to be euvolemic with lung and peripheral examination. Will hold diuretic today and assess volume status and Cr tomorrow. - Will continue Isordil and increase Hydralazine for afterload reduction. Possibly will increase Coreg Dose. - Will defer spironolactone at this time and Losartan due to KOKO - Pharmacy to review SGLT-2 Options. # Non-ST elevation acute myocardial infarction # Peripheral Arterial Disease s/p L AKA -- Pt has established history of CAD with PCI 2018 - aspirin 81 mg daily - plavix 75 mg daily - Atorvastatin 80 - s/p heparin GTT for 48 hrs - Continued Coreg 6.25 home dose; possibly increase. - Cath pending renal recovery # KOKO due to ATN on CKD -- secondary to diabetic nephropathy and HTN nephropathy with acute tubular necrosis -- Renal US without acute findings. - liberal oral fluids and allow for slightly higher blood pressure to encourage renal recovery # Calcified Aortic Valve Mass # Moderate Aortic Regurgitation with flail NC cusp # Moderate to severe Mitral Regurgitation (Terrence 3b) - Blood cultures negative - EDD today # T2DM - Will continue insulin therapy # HTN - Pt was previously on clonidine at home. - Will start patient on taper for clonidine, to be completed on Wednesday. - Will continue Hydralazine 50 TID and Isoridil. - Will hold Losartan 20 and Amlodipine and hydrochlorothiazide 25 # COPD - schedule tiotropium - albuterol PRN - consider LABA # Cirrhosis -- CAMACHO vs Chronic Hep B: - Will continue Entecavir tomorrow after kidney function review F: PO E: monitor and replete PRN N: NPO DVT ppx: Heparin Code Status: full Dispo: EDD today. Cosigned by Harlan Ricketts MD at 02/10/2023 2:28 PM EST Associated attestation - Harlan Ricketts MD - 02/10/2023 2:28 PM EST I saw and evaluated the patient with the resident/fellow. I discussed the case with the resident/fellow and agree with the findings and plan as documented. Renal function improving with holding diuretics and ad diana PO intake. Still would like cath prior to discharge, but unknown sCr baseline. Plan for EDD to assess AV mass and define severity and mechanism of * Consults - Tiera Bellamy, RD - 02/10/2023 12:08 PM EST Adult Nutrition Evaluation Note Robert Hurley 57 y.o. male CSN: [id number] Room/Bed 133/133A Nutrition evaluation type: assessment Reason for evaluation: [facility] course: 57 yoM with PMH COPD, HTN, HFrEF, T2DM, HLD, CAD s/p stents, [place], CAMACHO cirrhosis, depression, and left AKA who presented to 02/03 with acute hypoxic respiratory failure secondary toHFrEF exacerbation and possible Type 1 NSTEMI. Past medical/ surgical history: Past 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: [...] mental and behavioral disorders History of depression COPD, HTN, HFrEF, T2DM, HLD, CAD c/b Mi s/p 2x stents, cirrhosis, depression, and left AKA noted per H&P Past Surgical History: Procedure Laterality Date CATH STENT PLACEMENT/ CATH PLACEMENT OF STENT N/A Cath Stent Placement from [facility] CHOLECYSTECTOMY N/A Cholecystectomy from [facility] Social history: Smoker Additional comments: Visited with pt this morning. Pt reported that he is NPO today for a procedurelater this afternoon. Reported that his appetite varies; stated that how much he eats depends on what the food is/how hungry he feels. Pt reported that he likes the food here alright. 67% averageof last 12 intakes documented in flowsheets before going NPO. Pt reported that he has tried Boost in the past but that he does not like it; however, agreeable to try sugar free vanilla Magic Cup. Reported that he doesn't know if he has lost any weight recently, but reported that he thinks his UBW is ~200#. Pt reported that he has been feeling nauseous recently, but denied V/D/C. Denied chewing/swallowing issues. Vitals and Basic Assessment: BP: 132/77 Temp: 36.7 ??C (98 ??F) Oxygen Therapy: Supplemental oxygen O2 Delivery Method: Nasal cannula Mariela Coma Scale Score: 15 Prashanth Scale Score: 18 Last BM Date: 02/09/23 Edema: Generalized, Right lower extremity Allergies: NKFA Medications: aspirin, 81 mg, Oral, Daily atorvastatin, 80 mg, Oral, Daily carvedilol, 6.25 mg, Oral, BID clopidogrel, 75 mg, Oral, Daily emollient, , Topical, BID [START ON 02/11/2023] entecavir, 0.5 mg, Oral, q48h heparin (porcine), 5,000 Units, Subcutaneous, q8h ARIEL hydrALAZINE, 50 mg, Oral, TID insulin glargine-yfgn, 13 Units, Subcutaneous, Nightly insulin lispro, 0-5 Units, Subcutaneous, TID with meals insulin lispro, 0-3 Units, Subcutaneous, Twice at night Insulin Lispro, 5 Units, Subcutaneous, TID with meals isosorbide dinitrate, 40 mg, Oral, TID Tiotropium Orma Monohydrate, 2 puff, Inhalation, Daily PRN medications: acetaminophen, albuterol, glucose OR dextrose 10 %, dextrose 10 % OR glucose, glucagon (human recombinant), glucose, hydrOXYzine pamoate, nitroglycerin, ocular lubricant, [COMPLETED] Insert peripheral IV AND [COMPLETED] Saline lock IV AND sodium chloride AND sodium chloride Meds were reviewed: Yes Labs: Labs in last 18 hours CBC WBC 4.96 Hb 10.9 (L) Plt 203 Hct 33.4 (L) ANC ?? INR ??, PTT ??, Anti-Xa ?? BMP Na 142 Cl 107 BUN 64 (H) Glu 86 K 4.4 Co2 27 Cr 3.02 (H) Ca 8.8 (L) iCa ?? Mg 2.4, Phos ?? Lactate ?? LFT AST 44 AlkPhos 157 (H) T Prot 5.9 (L) ALK 28 Bili 0.6 Alb ?? D.Bili ?? BUN/Cr elevated Lab Results Component Value Date CALCIUM 8.8 (L) 02/10/2023 PHOS 4.6 (H) 02/05/2023 Lab Results Component Value Date HGBA1C 6.6 (H) 02/03/2023 Pt's A1C in diabetic range Lab Results Component Value Date ALBUMIN 3.3 (L) 02/10/2023 Albumin is a negative acute-phase reactant, so it is not a good indicator of nutrition-status. Lab Results Component Value Date CHOL 141 04/05/2019 TRIG 141 04/05/2019 HDL 51 04/05/2019 LDLCALC 62 04/05/2019 Anthropometrics: Height: 182.9 cm (6') Weight: 84.5 kg (186 lb 4.6 oz) BMI (Calculated): 25.26 Weight Evaluation: Overweight (BMI 25-29.9) Delta Body Weight (kg): 72 (adjusted for AKA) Percent Delta Body Weight: 117 Wt Readings from Last 10 Encounters: 02/08/23 84.5 kg (186 lb 4.6 oz) 03/08/20 89.2 kg (196 lb 9.4 oz) 04/19/19 72.6 kg (160 lb 0.2 oz) 06/23/17 112 kg (246 lb 7.6 oz) 05/25/17 104 kg (228 lb 6.3 oz) 05/11/17 101 kg (222 lb 3.6 oz) 02/07/16 90.8 kg (200 lb 2.1 oz) Estimated Needs: Kcal/ K-27 Kcal Provided: 0581-3068 Kcal Needs Based On: Current weight (84.5 kg) Metabolic Cart Study Results: Current Nutrition Intake: Diet Supplements: None Diet Order: NPO Percent Meals Eaten (%): ~67% avg of last 12 intakes documented from 02/04-02/09 before going NPO Diet Experience and Nutrition History: Diet Education Provided: Will monitor Pertinent home medications: Noted [employer] needs: None noted Nutrition Focused Physical Exam: Physical exam performed on (date): 02/10 Temples (muscles): None Clavicle (muscle): None Shoulder (muscle): None Orbital (fat): None Triceps (fat): Mild Energy Intake: Pt reported that his appetite varies and that how much he eats depends on what thefood is/how hungry he feels; 67% average of last 12 intakes documented in flowsheets Weight Loss: Pt reported that he doesn't know if he has lost any weight recently, but reported thathe thinks his UBW is ~2--#; pt currently weighs 186# per last weight record - 14# (7%) weight loss if accurate; however, pt also noted with fluid shifts Assessment of Malnutrition: Malnutrition Identified: No Nutrition Problem: Predicted suboptimal energy intake related to acute on chronic illness as evidenced by pt reported that his appetite varies during RD interview and 67% average of last 12 intakes documented in flowsheets. Status of Nutrition Diagnosis: New Altered nutrition related laboratory values, A1C related to T2DM as evidenced by A1C of 6.6. Status of Nutrition Diagnosis: New Nutrition Interventions and Recommendations: Advance diet from NPO as tolerated and as appropriate. Diet advancement/texture per team. Recommend adding CHO2 and cardiac restrictions as appropriate once diet advances. Recommend adding SF vanilla Magic Cup BID with meals once diet advances to encourage PO intake and to help with meeting energy and protein needs. Recommend obtaining daily weights to monitor for any weight loss or weight changes. Please document all PO intakes in flowsheets and monitor. Nutrition Monitoring and Goals: Tolerate >75% PO intake. Electrolytes WNL. Monitor BG/A1C. RD will monitor PO intake/EN infusion, weight, skin, labs, I/O's and nutrition status. Acuity Level: [address], LD * Progress Notes - Anthony Matias DO - 02/09/2023 6:52 PM EST Images from the original note were not included. INPATIENT CARDIOLOGY (CA3) DAILY PROGRESS NOTE Patient is a 57 yo M a/w respiratory failure 2/2 pulm edema on 02/03 to gen med. He has a PMH of CADs/p PCI, HFmrEF, COPD, DMII, CAMACHO cirrhosis, left AKA. He required BiPAP for resp support and high dose diuretics. Pt Tx to CA3 on 02/05 due to concern for type I NSTEMI and echo showing EF 32% (previously 50%), 3+ MR, and possible AV mass. By personal review of TTE, EF is moderately reduced and there is mild MR and mild to moderate AR. The AV is calcified and there is a possible mass. Presentation is not consistent with infective endocarditis. Course has been complicated by KOKO likely now ATN. SUBJECTIVE Feels well today. EDD bumped to tomorrow. Patient upset but understanding. Denies new complaints. Workup significant for ATN, encouraged judicious PO fluid intake and will supplement with IVF if necessary. ROS: Pertinent ROS obtained, as noted above. OBJECTIVE Vitals Visit Vitals BP (!) 158/89 (BP Location: Right arm) Pulse 79 Temp 37.1 ??C (98.7 ??F) (Oral) Ht 1.829 m (6') Wt 84.5 kg (186 lb 4.6 oz) SpO2 97% BMI 25.27 kg/m?? Intake/Output Summary (Last 24 hours) at 02/09/20231851 Last data filed at 02/09/2023 1820 Gross per 24 hour Intake 720 ml Output 1450 ml Net -730 ml Net IO Since Admission: -10,899.19 mL [02/09/231851] O2 Delivery Method: Nasal cannula Physical Exam: GENERAL: no acute distress, cooperative SKIN: warm and dry, no rashes, wounds, ulcers EYES: conjunctiva clear, EOMI, PERRLA ENT: intact, mucous membranes moist, no apparent injury HEAD/NECK: neck supple, no apparent injury, no cervical lymphadenopathy RESPIRATORY/THORAX: breath sounds equal. Nonlabored. Inspiratory/expiratory wheezes noted. Mild crackles appreciated in lower lung bases bilaterally. CARDIOVASCULAR: regular rate and rhythm, normal S1 and S2, no murmurs, pulses 2+, no edema noted onexamination. GASTROINTESTINAL: bowel sounds normal, soft, non-tender, no hepatosplenomegaly MUSCULOSKELETAL: no joint swelling, full range of motion in all extremities. Left leg AKA. trace pitting edema to knee on right leg- much improved from day prior. Chronic venous stasis dermatitis present on RLE. NEUROLOGICAL: CN II-IX intact grossly, interactive and normal tone PSYCHOLOGICAL: Alert & Oriented x4, appropriate mood and behavior Labs CBC: Lab Results Component Value Date WBC 5.24 02/09/2023 HGB 10.8 (L) 02/09/2023 HCT 33.1 (L) 02/09/2023 PLT 194 02/09/2023 MCV 88 02/09/2023 MCH 28.8 02/09/2023 MCHC 32.6 02/09/2023 RDW 13.5 02/09/2023 NRBC 0.0 02/09/2023 Differential: Lab Results Component Value Date WBC 5.24 02/09/2023 NEUTOPHILPCT 50.0 02/09/2023 LYMPHOPCT 35.0 02/09/2023 MONOPCT 12.0 02/09/2023 EOSPCT 3.0 02/09/2023 NEUTROABS 2.59 02/09/2023 Coagulation: No results found for: INR , PT , PTT , CLFGN Renal: Lab Results Component Value Date NA 141 02/09/2023 K 4.3 02/09/2023 CL 105 02/09/2023 CO2 26 02/09/2023 BUN 74 (H) 02/09/2023 CREATININE 3.15 (H) 02/09/2023 GLUCOSE 102 (H) 02/09/2023 CALCIUM 8.4 (L) 02/09/2023 MG 2.1 02/09/2023 Liver: Lab Results Component Value Date AST 51 (H) 02/09/2023 ALT 32 02/09/2023 BILITOT 0.4 02/09/2023 Glucose: Lab Results Component Value Date PGLU 118 (H) 02/09/2023 PGLU 218 (H) 02/09/2023 PGLU 122 (H) 02/09/2023 PGLU 118 (H) 02/08/2023 Lab Results Component Value Date HGBA1C 6.6 (H) 02/03/2023 Imaging VAS US Renal Artery Duplex Final Result Right: No evidence of a hemodynamically significant renal artery stenosis. Kidney size is within normal limits. Parenchymal flow is not detected. Left: No evidence of a hemodynamically significant renal artery stenosis. Kidney size is within normal limits. COMMUNICATION: Per this written report. Preliminary report signed by CAROLE BLANTON on 02/08/2023 4:27 PM By electronically signing this report, I, the attending physician, attest that I have personally reviewed the images/data for the above examination(s) and I agree with the final edited report. Drafted by CAROLE BLANTON on 02/08/2023 4:24 PM Final report signed by Clementina Galeano MD on 02/08/2023 6:28 PM US Renal Complete Final Result No hydronephrosis. CRITICAL RESULT: No. COMMUNICATION: Per this written report. Drafted by Kamila Mackenzie MD on 02/06/2023 4:32 PM Final report signed by Kamila Mackenzie MD on 02/06/2023 4:33 PM Echo, Adult Transthoracic Complete Final Result XR Chest 1 View Final Result Redemonstrated bilateral airspace opacities, improved on the left. CRITICAL RESULT: No. COMMUNICATION: Per this written report. By electronically signing this report, I, the attending physician, attest that I have personally reviewed the images/data for the above examination(s) and agree with the final edited report. Drafted by Macrina Dao MD on 02/04/2023 8:37 AM Final report signed by Douglas Norman MD on 02/04/2023 9:29 AM XR Chest 1 View Final Result Cardiomegaly with pulmonary vascular congestion. Bilateral ill-defined airspace opacities and diffuse interstitial opacification similar to the previous CT scan from February 2019. Most likely there is underlying chronic lung disease. Consider pulmonary edema versus multifocal infection. CRITICAL RESULT: No. COMMUNICATION: Per this written report. By electronically signing this report, I, the attending physician, attest that I have personally reviewed the images/data for the above examination(s) and agree with the final edited report. Drafted by Macrina Dao MD on 02/03/2023 8:08 AM Final report signed by Tess Connelly MD on 02/03/2023 10:[address] Angio Pulmonary Embolism Final Result No pulmonary embolism. Diffuse pulmonary edema/pneumonia as described above. Small bilateral pleural fluid collections. Several intermediate size lymph nodes in the mediastinum are most likely reactive. Mild cardiomegaly. Calcifications in the coronary arteries. CRITICAL RESULT: No. COMMUNICATION: Per this written report. Drafted by Tess Connelly MD on 02/03/2023 8:49 AM Final report signed by Tess Connelly MD on 02/03/2023 8:59 AM Echo, Adult Transesophageal (EDD) (Results Pending) ASSESSMENT/PLAN Robert Hurley is a 57 yoM with PMH COPD, HTN, HFrEF, T2DM, HLD, CAD s/p stents, TX, CAMACHO cirrhosis, depression, and left AKA presents with acute hypoxic respiratory failure secondary to HFrEF exacerbation and possible Type 1 NSTEMI. #Acute Heart Failure - LVEF noted >50% at OSH prior [...] Currently on 2L with 100% saturation. - 1.775 L UO yesterday. - Echo noted at 32% and was noted to be 50% at OSH 2 days ago. Plan: - Pt appears to be euvolemic with lung and peripheral examination. Will hold diuretic today and assess volume status and Cr tomorrow. - Will increase Isordil today and keep Hydralazine for afterload reduction. Possibly will increase Coreg Dose. - Will defer spironolactone at this time and Losartan due to KOKO - Pharmacy to review SGLT-2 Options. # Non-ST elevation acute myocardial infarction # Peripheral Arterial Disease s/p L AKA -- Pt has established history of CAD with PCI 2017 - aspirin 81 mg daily - plavix 75 mg daily - Atorvastatin 80 - s/p heparin GTT for 48 hrs - Continued Coreg 6.25 home dose; possibly increase tomorrow. - Cath pending renal recovery # KOKO due to ATN on CKD -- secondary to diabetic nephropathy and HTN nephropathy with acute tubular necrosis -- Renal US without acute findings. - liberal oral fluids and allow for slightly higher blood pressure to encourage renal recovery # Calcified Aortic Valve Vegetation # Moderate Aortic Regurgitation with flail NC cusp # Moderate to severe Mitral Regurgitation (Terrence 3b) - Blood cultures negative - EDD tomorrow; npo at midnight # T2DM - Will continue insulin therapy; will possibly adjust since patient is no longer NPO # HTN - Pt was previously on clonidine at home. - Will start patient on taper for clonidine, to be completed on Wednesday. - Will continue Hydralazine 25 TID and Isoridil. - Will hold Losartan 20 and Amlodipine and hydrochlorothiazide 25 # COPD - schedule tiotropium - albuterol PRN - consider LABA # Cirrhosis -- CAMACHO vs Chronic Hep B: - Will continue Entecavir tomorrow after kidney function review F: PO E: monitor and replete PRN N: NPO DVT ppx: Heparin Code Status: full Dispo: EDD tomorrow. Brad Matias DO PGY5 Direct Sales Representative Cosigned by Harlan Ricketts MD at 02/10/2023 1:49 PM EST Associated attestation - Harlan Ricketts MD - 02/10/2023 1:49 PM EST I saw and evaluated the patient with the resident/fellow. I discussed the case with the resident/fellow and agree with the findings and plan as documented. * Pre-Sedation Documentation - Anthony Matias DO - 02/09/2023 8:16 AM EST Images from the original note were not included. Cardiology Pre-procedural Assessment And Sedation Plan Indication for procedure: The encounter diagnosis was Shortness of breath. Planned Procedure: transesophgeal echocardiogram Relevant past medical history: calcified endocarditis Relevant review of systems: NA Relevant Labs: Lab Results Component Value Date CREATININE 3.15 (H) 02/09/2023 EGFR 22.4 02/09/2023 INR 1.1 02/04/2023 Planned Sedation/Anesthesia: Moderate Airway assessment: normal Mallampati Score: III (soft and hard palate and base of uvula visible) ASA: ASA 3 - Patient with moderate systemic disease with functional limitations Directed physical examination: See H&P Benefits, risks and alternatives of procedure and planned sedation have been discussed with the patient and/or their bilingual inside sales representative. All questions answered and they agree to proceed. * Care Plan - Juliette Ochoa - 02/08/2023 9:28 PM EST Problem: Adult Inpatient Plan of Care Goal: Optimal Comfort and Wellbeing Outcome: Ongoing, Progressing Goal: Readiness for Transition of Care Outcome: Ongoing, Progressing * Progress Notes - Josh Mcmanus MD - 02/08/2023 3:36 PM EST Images from the original note were not included. INPATIENT CARDIOLOGY (CA3) DAILY PROGRESS NOTE SUBJECTIVE No acute events overnight. Pt denies chest pain or SOA. Pt is currently on RA with >95% oxygenation. Pt to possibly undergo EDD tomorrow for valvular disease. ROS: Pertinent ROS obtained, as noted above. OBJECTIVE Vitals Visit Vitals BP (!) 158/83 (BP Location: Right arm, Patient Position: Sitting) Pulse 78 Temp 36.8 ??C (98.2 ??F) (Oral) Ht 1.829 m (6') Wt 84.5 kg (186 lb 4.6 oz) SpO2 99% BMI 25.27 kg/m?? Intake/Output Summary (Last 24 hours) at 02/08/2023 1537 Last data filed at 02/08/2023 1320 Gross per 24 hour Intake 740 ml Output 2575 ml Net -1835 ml Net IO Since Admission: -10,019.19 mL [02/08/23 1537] O2 Delivery Method: Nasal cannula Physical Exam: GENERAL: no acute distress, cooperative SKIN: warm and dry, no rashes, wounds, ulcers EYES: conjunctiva clear, EOMI, PERRLA ENT: intact, mucous membranes moist, no apparent injury HEAD/NECK: neck supple, no apparent injury, no cervical lymphadenopathy RESPIRATORY/THORAX: breath sounds equal. Nonlabored. Inspiratory/expiratory wheezes noted. Mild crackles appreciated in lower lung bases bilaterally. CARDIOVASCULAR: regular rate and rhythm, normal S1 and S2, no murmurs, pulses 2+, no edema noted onexamination. GASTROINTESTINAL: bowel sounds normal, soft, non-tender, no hepatosplenomegaly MUSCULOSKELETAL: no joint swelling, full range of motion in all extremities. Left leg AKA. trace pitting edema to knee on right leg- much improved from day prior. Chronic venous stasis dermatitis present on RLE. NEUROLOGICAL: CN II-IX intact grossly, interactive and normal tone PSYCHOLOGICAL: Alert & Oriented x4, appropriate mood and behavior Labs CBC: Lab Results Component Value Date WBC 6.20 02/08/2023 HGB 10.3 (L) 02/08/2023 HCT 32.1 (L) 02/08/2023 PLT 202 02/08/2023 MCV 88 02/08/2023 MCH 28.1 02/08/2023 MCHC 32.1 02/08/2023 RDW 13.5 02/08/2023 NRBC 0.0 02/08/2023 Differential: Lab Results Component Value Date WBC 6.20 02/08/2023 NEUTOPHILPCT 58.0 02/08/2023 LYMPHOPCT 29.0 02/08/2023 MONOPCT 10.0 02/08/2023 EOSPCT 3.0 02/08/2023 NEUTROABS 3.62 02/08/2023 Coagulation: No results found for: INR , PT , PTT , CLFGN Renal: Lab Results Component Value Date NA 143 02/08/2023 K 4.6 02/08/2023 CL 103 02/08/2023 CO2 29 02/08/2023 BUN 90 (H) 02/08/2023 CREATININE 3.88 (H) 02/08/2023 GLUCOSE 65 (L) 02/08/2023 CALCIUM 8.6 (L) 02/08/2023 MG 2.5 (H) 02/08/2023 Liver: Lab Results Component Value Date AST 52 (H) 02/08/2023 ALT 30 02/08/2023 BILITOT 0.3 02/08/2023 Glucose: Lab Results Component Value Date PGLU 159 (H) 02/08/2023 PGLU 81 02/08/2023 PGLU 71 (L) 02/08/2023 PGLU 175 (H) 02/07/2023 PGLU 224 (H) 02/07/2023 Lab Results Component Value Date HGBA1C 6.6 (H) 02/03/2023 Imaging US Renal Complete Final Result No hydronephrosis. CRITICAL RESULT: No. COMMUNICATION: Per this written report. Drafted by Kamila Mackenzie MD on 02/06/2023 4:32 PM Final report signed by Kamila Mackenzie MD on 02/06/2023 4:33 PM Echo, Adult Transthoracic Complete Final Result XR Chest 1 View Final Result Redemonstrated bilateral airspace opacities, improved on the left. CRITICAL RESULT: No. COMMUNICATION: Per this written report. By electronically signing this report, I, the attending physician, attest that I have personally reviewed the images/data for the above examination(s) and agree with the final edited report. Drafted by Macrina Dao MD on 02/04/2023 8:37 AM Final report signed by Douglas Norman MD on 02/04/2023 9:29 AM XR Chest 1 View Final Result Cardiomegaly with pulmonary vascular congestion. Bilateral ill-defined airspace opacities and diffuse interstitial opacification similar to the previous CT scan from February 2019. Most likely there is underlying chronic lung disease. Consider pulmonary edema versus multifocal infection. CRITICAL RESULT: No. COMMUNICATION: Per this written report. By electronically signing this report, I, the attending physician, attest that I have personally reviewed the images/data for the above examination(s) and agree with the final edited report. Drafted by Macrina Dao MD on 02/03/2023 8:08 AM Final report signed by Tess Connelly MD on 02/03/2023 10:[address] Angio Pulmonary Embolism Final Result No pulmonary embolism. Diffuse pulmonary edema/pneumonia as described above. Small bilateral pleural fluid collections. Several intermediate size lymph nodes in the mediastinum are most likely reactive. Mild cardiomegaly. Calcifications in the coronary arteries. CRITICAL RESULT: No. COMMUNICATION: Per this written report. Drafted by Tess Connelly MD on 02/03/2023 8:49 AM Final report signed by Tess Connelly MD on 02/03/2023 8:59 AM VAS US Renal Artery Duplex (Results Pending) ASSESSMENT/PLAN Robert Hurley is a 57 yoM with PMH COPD, HTN, HFrEF, T2DM, HLD, CAD s/p stents, TX, CAMACHO cirrhosis, depression, and left AKA presents with acute hypoxic respiratory failure secondary to HFrEF exacerbation and possible Type 1 NSTEMI. # Acute Hypoxic Respiratory Failure- Resolved # HFrEF Exacerbation- Resolved # HFrEF - EF noted >50% at OSH prior to this admission on 02/03/23. Noted to be >30% with recent TTE. With elevated troponin and ST depressions- ischemic mediated injury as leading cause of reduction ofEF. - Pt had adequately been diuresed with adequate urine output. - Upon admission, BNP of 67,730 with possible CAP component- CAP treated. - Required BiPAP, HFNC and transitioned to NC. Currently on 2L with 100% saturation. - 1.775 L UO yesterday. - Echo noted at 32% and was noted to be 50% at OSH 2 days ago. Plan: - Pt appears to be euvolemic with lung and peripheral examination. Will hold diuretic today and assess volume status and Cr tomorrow. - Will increase Isordil today and keep Hydralazine for afterload reduction. Possibly will increase Coreg Dose. - Will defer spironolactone at this time and Losartan due to KOKO - Pharmacy to review SGLT-2 Options. # Possible Type 1 NSTEMI - Pt has established history of CAD with PCI 2018 - Calcified coronary vessels as seen on CT. - Troponin at OSH from 200 to 900. 218 to 198 trops at [facility] - Will hold off on cardiac cath technologist due to renal function. - Pt was loaded with aspirin. Maintenance of Aspirin and Plavix. - Pt is currently on Atorvastatin 80. - Place patient on Heparin Drip- d/c at 48 hours. - Will continue nitroglycerin as needed - Continued Coreg 6.25 home dose; possibly increase tomorrow. - Possibly cardiac cath technologist next week with review of KOKO. # KOKO on CKD - Cr has been trending downward at 4.12 from 3.49 - Bl unknown; however CKD secondary to diabetic nephropathy and HTN nephropathy probable. - Renal US without acute findings. - Initially cardiorenal, now due to hypovolemia from diuretic. Will hold off and review tomorrow. - If not downtrending, will consult nephrology. - Will order FeUREA # Aortic Valve Vegetation - Noted on TTE - Blood cultures collected. Does not appear to have bacteremia. - Possibly will have EDD tomorrow. Will continue to monitor clinical status- as patient does not look toxic appearing, is afebrile, hemodynamically stable and clinically looks well. # T2DM - Will continue insulin therapy; will possibly adjust since patient is no longer NPO # HTN - Pt was previously on clonidine at home. - Will start patient on taper for clonidine, to be completed on Wednesday. - Will continue Hydralazine 25 TID and Isoridil. - Will hold Losartan 20 and Amlodipine and hydrochlorothiazide 25 Chronic Conditions # COPD- Duoneb therapy # Cirrhosis, CAMACHO vs Chronic Hep B: Will continue Entecavir tomorrow after kidney function review F: PO E: monitor and replete PRN N: NPO DVT ppx: Heparin Code Status: full Dispo: EDD tomorrow. Josh Mcmanus MD Internal Medicine, PGY-1 Cosigned by Harlan Ricketts MD at 02/08/2023 5:07 PM EST Associated attestation - Harlan Ricketts MD - 02/08/2023 5:07 PM EST I saw and evaluated the patient with the resident/fellow. I discussed the case with the resident/fellow and agree with the findings and plan as documented. Patient is a 57 yo M a/w respiratory failure 2/2 pulm edema on 02/03 to gen med. He has a PMH of CADs/p PCI, HFmrEF, COPD, DMII, CAMACHO cirrhosis, left AKA. He required BiPAP for resp support and high dose diuretics. Pt Tx to CA3 on 02/05 due to concern for type I NSTEMI and echo showing EF 32% (previously 50%), 3+ MR, and possible AV mass. By personal review of TTE, EF is moderately reduced and there is mild MR and mild to moderate AR. The AV is calcified and there is a possible mass. Presentation is not consistent with infective endocarditis. Course has been complicated by KOKO likely now ATN.On physical exam he appears near euvolemic. Plan for EDD for evaluation of aortic valve and to define severity of MR. Patient will need cath when renal function recovers. * Progress Notes - Ann Marie Garcia - 02/08/2023 2:45 PM EST Hospital visit made. Went over [facility] program. Patient verbalized understanding and agreed to program. Enrolled patient in [facility] Transitional Care program under Transitional Care Model. Transitions will assist with support and education at time of discharge. Hospital executive coach will follow thr oughout stay. Home executive coach will see patient within 48 hours of discharge and follow with home visits and telephone contact times 6 weeks. Provided [facility] folder with brochure, educational materials, and contact information to patient. * Progress Notes - Sirisha Chong RN - 02/08/2023 10:36 AM EST Case Management Adult Progress Note Robert Hurley 57 y.o. male CSN: [id number] Admission: 02/03/2023 6:36 AM Primary Problem: Acute respiratory failure with hypoxia (CMS/HCC) Anticipated Discharge Date: 02/07/2023 Additional Comments: Chart review completed. The patient transferred to [facility] due to concern for NSTEMI and for further cardiology evaluation and management. JAME WHITMORE attended rounding this AM to discuss POC. The patient has mentioned that he lives alone. Although his son provides some assistance, he works and cannot be present for 24 hours. The patient states he has a cane, wheelchair, and a rollatorwalker at his home. He either drives himself or his son assists him with transportation. Per the team, the patient is not medically ready for discharge at this time and the team continues to medically manage and monitor the patient. Sirisha Chong RN * Progress Notes - Josh Mcmanus MD - 02/07/2023 3:57 PM EST Images from the original note were not included. INPATIENT CARDIOLOGY ([facility]) DAILY PROGRESS NOTE SUBJECTIVE No acute events overnight. Pt was -2.2L overnight. Pt is doing well. States he is breathing well without SOA. Denies chest pain. Able to get up and move without difficulty. ROS: Pertinent ROS obtained, as noted above. OBJECTIVE Vitals Visit Vitals BP 126/69 (BP Location: Right arm, Patient Position: Lying) Pulse 73 Temp 36.7 ??C (98 ??F) (Oral) Ht 1.829 m (6') Wt 84 kg (185 lb 3 oz) SpO2 96% BMI 25.12 kg/m?? Intake/Output Summary (Last 24 hours) at 02/07/2023 1557 Last data filed at 02/07/2023 0535 Gross per 24 hour Intake -- Output 1100 ml Net -1100 ml Net IO Since Admission: -8,184.19 mL [02/07/23 1557] O2 Delivery Method: Nasal cannula Physical Exam: GENERAL: no acute distress, cooperative SKIN: warm and dry, no rashes, wounds, ulcers EYES: conjunctiva clear, EOMI, PERRLA ENT: intact, mucous membranes moist, no apparent injury HEAD/NECK: neck supple, no apparent injury, no cervical lymphadenopathy RESPIRATORY/THORAX: breath sounds equal. Nonlabored. Inspiratory/expiratory wheezes noted. No crackles appreciated. CARDIOVASCULAR: regular rate and rhythm, normal S1 and S2, no murmurs, pulses 2+, no edema GASTROINTESTINAL: bowel sounds normal, soft, non-tender, no hepatosplenomegaly MUSCULOSKELETAL: no joint swelling, full range of motion in all extremities. Left leg AKA. trace pitting edema to knee on right leg- much improved from day prior. Chronic venous stasis dermatitis present on RLE. NEUROLOGICAL: CN II-IX intact grossly, interactive and normal tone PSYCHOLOGICAL: Alert & Oriented x4, appropriate mood and behavior Labs CBC: Lab Results Component Value Date WBC 5.25 02/07/2023 HGB 10.6 (L) 02/07/2023 HCT 32.8 (L) 02/07/2023 PLT 188 02/07/2023 MCV 88 02/07/2023 MCH 28.3 02/07/2023 MCHC 32.3 02/07/2023 RDW 13.5 02/07/2023 NRBC 0.0 02/07/2023 Differential: Lab Results Component Value Date WBC 5.25 02/07/2023 NEUTOPHILPCT 49.0 02/07/2023 LYMPHOPCT 37.0 02/07/2023 MONOPCT 10.0 02/07/2023 EOSPCT 3.0 02/07/2023 NEUTROABS 2.61 02/07/2023 Coagulation: No results found for: INR , PT , PTT , CLFGN Renal: Lab Results Component Value Date NA 140 02/07/2023 K 4.8 02/07/2023 CL 101 02/07/2023 CO2 28 02/07/2023 BUN 98 (H) 02/07/2023 CREATININE 4.12 (H) 02/07/2023 GLUCOSE 132 (H) 02/07/2023 CALCIUM 8.4 (L) 02/07/2023 MG 2.6 (H) 02/07/2023 Liver: Lab Results Component Value Date AST 42 02/07/2023 ALT 26 02/07/2023 BILITOT 0.2 02/07/2023 Glucose: Lab Results Component Value Date PGLU 245 (H) 02/07/2023 PGLU 117 (H) 02/07/2023 PGLU 162 (H) 02/06/2023 PGLU 155 (H) 02/06/2023 Lab Results Component Value Date HGBA1C 6.6 (H) 02/03/2023 Imaging US Renal Complete Final Result No hydronephrosis. CRITICAL RESULT: No. COMMUNICATION: Per this written report. Drafted by Kamila Mackenzie MD on 02/06/2023 4:32 PM Final report signed by Kamila Mackenzie MD on 02/06/2023 4:33 PM Echo, Adult Transthoracic Complete Final Result XR Chest 1 View Final Result Redemonstrated bilateral airspace opacities, improved on the left. CRITICAL RESULT: No. COMMUNICATION: Per this written report. By electronically signing this report, I, the attending physician, attest that I have personally reviewed the images/data for the above examination(s) and agree with the final edited report. Drafted by Macrina Dao MD on 02/04/2023 8:37 AM Final report signed by Douglas Norman MD on 02/04/2023 9:29 AM XR Chest 1 View Final Result Cardiomegaly with pulmonary vascular congestion. Bilateral ill-defined airspace opacities and diffuse interstitial opacification similar to the previous CT scan from February 2019. Most likely there is underlying chronic lung disease. Consider pulmonary edema versus multifocal infection. CRITICAL RESULT: No. COMMUNICATION: Per this written report. By electronically signing this report, I, the attending physician, attest that I have personally reviewed the images/data for the above examination(s) and agree with the final edited report. Drafted by Macrina Dao MD on 02/03/2023 8:08 AM Final report signed by Tess Connelly MD on 02/03/2023 10:[address] Angio Pulmonary Embolism Final Result No pulmonary embolism. Diffuse pulmonary edema/pneumonia as described above. Small bilateral pleural fluid collections. Several intermediate size lymph nodes in the mediastinum are most likely reactive. Mild cardiomegaly. Calcifications in the coronary arteries. CRITICAL RESULT: No. COMMUNICATION: Per this written report. Drafted by Tess Connelly MD on 02/03/2023 8:49 AM Final report signed by Tess Connelly MD on 02/03/2023 8:59 AM VAS US Renal Artery Duplex (Results Pending) ASSESSMENT/PLAN Robert Hurley is a 57 yoM with PMH COPD, HTN, HFrEF, T2DM, HLD, CAD s/p stents, TX, CAMACHO cirrhosis, depression, and left AKA presents with acute hypoxic respiratory failure secondary to HFrEF exacerbation and possible Type 1 NSTEMI. # Acute Hypoxic Respiratory Failure # HFrEF Exacerbation # HFrEF - EF noted >50% at OSH prior to this admission on 02/03/23. Noted to be >30% with recent TTE. With elevated troponin and ST depressions- ischemic mediated injury as leading cause of reduction ofEF. - Pt had adequately been diuresed with adequate urine output. - Upon admission, BNP of 67,730 with possible CAP component- CAP treated. - Required BiPAP, HFNC and transitioned to NC. Currently on 2L with 100% saturation. - 1.7 L UO yesterday. - Echo noted at 32% and was noted to be 50% at OSH 2 days ago. Plan: - Pt appears to be euvolemic with lung and peripheral examination. Will hold diuretic today and assess volume status and Cr tomorrow. - Will increase Coreg tomorrow and continue Hydralazine and Isordil. - Will defer spironolactone at this time and Losartan due to KOKO - Pharmacy to review SGLT-2 Options. # Possible Type 1 NSTEMI - Pt has established history of CAD with PCI 2018 - Calcified coronary vessels as seen on CT. - Troponin at OSH from 200 to 900. 218 to 198 trops at [facility] - Will hold off on cardiac cath technologist due to renal function. - Pt was loaded with aspirin. Maintenance of Aspirin and Plavix. - Pt is currently on Atorvastatin 80. - Place patient on Heparin Drip- d/c at 48 hours. - Will continue nitroglycerin as needed - Restart Coreg 6.25 home dose; possibly increase tomorrow. - Possibly cardiac cath technologist next week with review of KOKO. # KOKO on CKD - Cr has been trending downward at 4.12 from 3.49 - Bl unknown; however CKD secondary to diabetic nephropathy and HTN nephropathy probable. - Renal US without acute findings. - Initially cardiorenal, now due to hypovolemia from diuretic. Will hold off and review tomorrow. - If not downtrending, will consult nephrology. # Aortic Valve Vegetation - Noted on TTE - Blood cultures collected. Does not appear to have bacteremia. - Possibly will have EDD next week. Will continue to monitor clinical status- as patient does not look toxic appearing, is afebrile, hemodynamically stable and clinically looks well. # T2DM - Will continue insulin therapy; will possibly adjust since patient is no longer NPO - Pt is NPO, will have to adjust with PO intake. # HTN - Pt was previously on clonidine at home. - Will start patient on taper for clonidine, to be completed on Wednesday. - Will start Hydralazine 25 TID. - Will hold Losartan 20 and Amlodipine and hydrochlorothiazide 25 Chronic Conditions # COPD- Duoneb therapy # Cirrhosis, CAMACHO vs Chronic Hep B: Continue Entecavir F: PO E: monitor and replete PRN N: Regular Diet. DVT ppx: Heparin Code Status: full Dispo: Admit to [facility] Josh Mcmanus MD Internal Medicine, PGY-1 Cosigned by Darrin Mitchell MD at 02/08/2023 1:04 PM EST Associated attestation - Darrin Mitchell MD - 02/08/2023 1:04 PM EST I saw and evaluated the patient with the resident/fellow. I discussed the case with the resident/fellow and agree with the findings and plan as documented. * Progress Notes - Josh Mcmanus MD - 02/06/2023 1:38 PM EST Images from the original note were not included. INPATIENT CARDIOLOGY ([facility]) DAILY PROGRESS NOTE SUBJECTIVE No acute events overnight. Pt denies chest pain or SOA overnight. He is doing well. Negative 1.7 L of UO yesterday with 4 mg Bumex. Pt is currently on 2L with >95% Saturation. ROS: Pertinent ROS obtained, as noted above. OBJECTIVE Vitals Visit Vitals BP (!) 141/82 (BP Location: Right arm, Patient Position: Lying) Pulse 80 Temp 36.9 ??C (98.5 ??F) (Oral) Ht 1.829 m (6') Wt 84.8 kg (186 lb 15.2 oz) Comment: with prothstetic leg SpO2 95% BMI 25.35 kg/m?? Intake/Output Summary (Last 24 hours) at 02/06/2023 1339 Last data filed at 02/06/2023 1055 Gross per 24 hour Intake 1296.41 ml Output 2150 ml Net -853.59 ml Net IO Since Admission: -5,909.19 mL [02/06/23 1339] O2 Delivery Method: Nasal cannula Physical Exam: GENERAL: no acute distress, cooperative SKIN: warm and dry, no rashes, wounds, ulcers EYES: conjunctiva clear, EOMI, PERRLA ENT: intact, mucous membranes moist, no apparent injury HEAD/NECK: neck supple, no apparent injury, no cervical lymphadenopathy RESPIRATORY/THORAX: breath sounds equal. Nonlabored. Inspiratory/expiratory wheezes noted. No crackles appreciated. CARDIOVASCULAR: regular rate and rhythm, normal S1 and S2, no murmurs, pulses 2+, no edema GASTROINTESTINAL: bowel sounds normal, soft, non-tender, no hepatosplenomegaly MUSCULOSKELETAL: no joint swelling, full range of motion in all extremities. Left leg AKA. trace pitting edema to knee on right leg- much improved from day prior. Chronic venous stasis dermatitis present on RLE. NEUROLOGICAL: CN II-IX intact grossly, interactive and normal tone PSYCHOLOGICAL: Alert & Oriented x4, appropriate mood and behavior Labs CBC: Lab Results Component Value Date WBC 4.25 02/06/2023 HGB 9.4 (L) 02/06/2023 HCT 29.4 (L) 02/06/2023 PLT 156 02/06/2023 MCV 88 02/06/2023 MCH 28.2 02/06/2023 MCHC 32.0 02/06/2023 RDW 13.8 02/06/2023 NRBC 0.0 02/06/2023 Differential: Lab Results Component Value Date WBC 4.25 02/06/2023 NEUTOPHILPCT 48.0 02/06/2023 LYMPHOPCT 36.0 02/06/2023 MONOPCT 12.0 02/06/2023 EOSPCT 3.0 02/06/2023 NEUTROABS 2.07 02/06/2023 Coagulation: No results found for: INR , PT , PTT , CLFGN Renal: Lab Results Component Value Date NA 143 02/06/2023 K 3.8 02/06/2023 CL 109 (H) 02/06/2023 CO2 24 02/06/2023 BUN 83 (H) 02/06/2023 CREATININE 3.49 (H) 02/06/2023 GLUCOSE 117 (H) 02/06/2023 CALCIUM 6.9 (L) 02/06/2023 MG 1.9 02/06/2023 Liver: Lab Results Component Value Date AST 32 02/06/2023 ALT 21 02/06/2023 BILITOT 0.2 02/06/2023 Glucose: Lab Results Component Value Date PGLU 125 (H) 02/06/2023 PGLU 185 (H) 02/05/2023 PGLU 240 (H) 02/05/2023 Lab Results Component Value Date HGBA1C 6.6 (H) 02/03/2023 Imaging Echo, Adult Transthoracic Complete Final Result XR Chest 1 View Final Result Redemonstrated bilateral airspace opacities, improved on the left. CRITICAL RESULT: No. COMMUNICATION: Per this written report. By electronically signing this report, I, the attending physician, attest that I have personally reviewed the images/data for the above examination(s) and agree with the final edited report. Drafted by Macrina Dao MD on 02/04/2023 8:37 AM Final report signed by Douglas Norman MD on 02/04/2023 9:29 AM XR Chest 1 View Final Result Cardiomegaly with pulmonary vascular congestion. Bilateral ill-defined airspace opacities and diffuse interstitial opacification similar to the previous CT scan from February 2019. Most likely there is underlying chronic lung disease. Consider pulmonary edema versus multifocal infection. CRITICAL RESULT: No. COMMUNICATION: Per this written report. By electronically signing this report, I, the attending physician, attest that I have personally reviewed the images/data for the above examination(s) and agree with the final edited report. Drafted by Macrina Dao MD on 02/03/2023 8:08 AM Final report signed by Tess Connelly MD on 02/03/2023 10:[address] Angio Pulmonary Embolism Final Result No pulmonary embolism. Diffuse pulmonary edema/pneumonia as described above. Small bilateral pleural fluid collections. Several intermediate size lymph nodes in the mediastinum are most likely reactive. Mild cardiomegaly. Calcifications in the coronary arteries. CRITICAL RESULT: No. COMMUNICATION: Per this written report. Drafted by Tess Connelly MD on 02/03/2023 8:49 AM Final report signed by Tess Connelly MD on 02/03/2023 8:59 AM ASSESSMENT/PLAN Robert Hurley is a 57 yoM with PMH COPD, HTN, HFrEF, T2DM, HLD, CAD s/p stents, TX, CAMACHO cirrhosis, depression, and left AKA presents with acute hypoxic respiratory failure secondary to HFrEF exacerbation and possible Type 1 NSTEMI. # Acute Hypoxic Respiratory Failure # HFrEF Exacerbation # HFrEF - EF noted >50% at OSH prior to this admission on 02/03/23. Noted to be >30% with recent TTE. With elevated troponin and ST depressions- ischemic mediated injury as leading cause of reduction ofEF. - Pt had adequately been diuresed with adequate urine output. - Upon admission, BNP of 67,730 with possible CAP component- CAP treated. - Required BiPAP, HFNC and transitioned to NC. Currently on 2L with 100% saturation. - 1.7 L UO yesterday. - Echo noted at 32% and was noted to be 50% at OSH 2 days ago. Plan: - Pt appears to be euvolemic with lung and peripheral examination. Will hold diuretic this morning.Will monitor UO for possible dose this afternoon. - Will start Coreg 6.25, and afterload reduction with hydralazine and Isordil. - Will start Spironolactone 12.5. Will continue to hold Losartan due to KOKO. - Pharmacy to review SGLT-2 Options. # Possible Type 1 NSTEMI - Pt has established history of CAD with PCI 2018 - Calcified coronary vessels as seen on CT. - Troponin at OSH from 200 to 900. 218 to 198 trops at [facility] - Will hold off on cardiac cath technologist due to renal function. - Pt was loaded with aspirin. Maintenance of Aspirin and Plavix. - Pt is currently on Atorvastatin 80. - Place patient on Heparin Drip- d/c at 48 hours. - Will continue nitroglycerin as needed - Restart Coreg 6.25 home dose. - Possibly cardiac cath technologist next week. # KOKO on CKD - Cr has been trending downward at 3.49 from 4.01 - Bl unknown; however CKD secondary to diabetic nephropathy and HTN nephropathy probable. - Possible cardiorenal will assess, will follow as patient has been adequately diuresed. - Will order renal US and doppler. # Aortic Valve Vegetation - Noted on TTE - Blood cultures collected. Does not appear to have bacteremia. - Possibly will have EDD next week. Will continue to monitor clinical status- as patient does not look toxic appearing, is afebrile, hemodynamically stable and clinically looks well. # T2DM - Will continue insulin therapy; will possibly adjust since patient is no longer NPO - Pt is NPO, will have to adjust with PO intake. # HTN - Pt was previously on clonidine at home. - Will start patient on taper for clonidine, to be completed on Wednesday. - Will start Hydralazine 25 TID. - Will hold Losartan 20 and Amlodipine and hydrochlorothiazide 25 Chronic Conditions # COPD- Duoneb therapy # Cirrhosis, CAMACHO vs Chronic Hep B: Continue Entecavir F: PO E: monitor and replete PRN N: Regular Diet. DVT ppx: Heparin Code Status: full Dispo: Admit to [facility] F: PO E: monitor and replete PRN N: Regular Diet DVT ppx: Eliquis Code Status: Full Dispo: Floor [facility] Josh Mcmanus MD Internal Medicine, PGY-1 Cosigned by Darrin Mitchell MD at 02/08/2023 10:58 AM EST Associated attestation - Darrin Mitchell MD - 02/08/2023 10:58 AM EST I saw and evaluated the patient with the resident/fellow. I discussed the case with the resident/fellow and agree with the findings and plan as documented. * Care Plan - Ge Fisher MD - 02/05/2023 1:42 PM EST Brief Cardiology Note Patient is having improvement with dyspnea after diuresis. States that he will still have intermittent SOA with lying completely flat, though better able to tolerate this today. Has had some intermittent chest pain that seems to be associated with coughing and does not sound cardiac in etiology. Patient would benefit from angiogram for evaluation of recent elevated troponin with lateral ST depressions, though these have changes have resolved with downtrending troponin levels and patient has hadno evidence of ongoing ischemia so patient does not require emergent evaluation. Additionally, patient has worsening renal function with creatinine trending up to 4 despite diuresis, which could be fu rther worsened by contrast during angiogram. TTE also showed newly reduced EF of 32% and concern for lesions on the aortic valve of unclear etiology that may require further evaluation with EDD at some point during hospitalization. Since this patient has significant cardiac disease and may require multiple interventions and continued management from a cardiovascular standpoint, recommend that he be transferred to the cardiologyservice for further evaluation and management. This has been discussed with the primary team and they are in agreement with this plan. Lopez Fisher MD Department of Cardiovascular Disease Fellow, PGY-4 * Transfer of Care - Josh Mcmanus MD - 02/05/2023 1:23 PM EST Images from the original note were not included. INPATIENT CARDIOLOGY ([facility]) HISTORY & PHYSICAL History Of Present Illness Robert Hurley is a 57 yoM with PMH COPD, HTN, HFrEF, T2DM, HLD, CAD s/p stents, TX, CAMACHO cirrhosis, depression, and left AKA who presented to [facility] on 02/03 for acute hypoxic respiratory failure. He was recently admitted at 02/01 for suspected bilateral CAP and placed on BiPAP, but left AMA. At this visit, Troponin was noted to be 200 and reached 900, but left hospital. SOA promoted him to return on 02/03. While at , pt was transitioned on BiPAP and was transitioned to high flow NC. CTPE was performed that displayed bilateral effusions and diffuse reticular opacities concerning for pneumonia with possible CHF exacerbation. Pt was started on Rocephin 7 days (until 02/05) and IV diuresis with net 1-2L. Rapid response was called on patient at 02/03 due to labored breathing and saturation of 87-88% and tachypneic on 6L and was placed on BiPAP. Pt improved and was weaned to HFNC and eventually to NC. Hospital medicine team consulted and transferred pt to [facility] due to recent echocardiogram and concernfor Type 1 NSTEMI. Echocardiogram displayed possible vegetation/mass on aortic leaflet with decreased EF of 32%. Moderate aortic valve regurgitation and moderate to severe mitral regurg. When seeing patient, he was 2L with 100% saturation- weaned without oxygen to >95%. Siting comfortably without distress. Denies chest pain, SOA or difficulty breathing. ROS: 14-point ROS obtained and negative other [...] OF STENT N/A Cath Stent Placement from [facility] CHOLECYSTECTOMY N/A Cholecystectomy from [facility] Family History family history includes Conversions - Other in his father and mother; Diabetes in his mother; Hyperlipidemia in his father; Hypertension in his father and mother; Obesity in his mother; Other cancer in his father. Social History Tobacco use: 1ppd Alcohol use: Denies any significant recent usage. Other: Denies any recent illicit drug use. Allergies Penicillins Home Medications Current Outpatient Medications Medication Instructions amLODIPine (NORVASC) 10 mg, Oral, Daily atorvastatin (LIPITOR) 40 mg, Oral, Daily carvedilol (COREG) 6.25 mg, Oral, 2 times daily cloNIDine (CATAPRES) 0.2 mg, Oral, 2 times daily clopidogrel (PLAVIX) 75 mg, Oral, Daily entecavir (BARACLUDE) 0.5 mg, Oral, Daily gabapentin (NEURONTIN) 600 mg, Oral, 3 times daily hydroCHLOROthiazide (HYDRODIURIL) 25 mg, Oral, Daily Levemir 50 Units, Subcutaneous, Daily losartan (COZAAR) 50 mg, Oral, 2 times daily nitroglycerin (NITROSTAT) 0.4 mg, Sublingual, Every 5 min PRN NovoLOG FlexPen ReliOn 20 Units, Subcutaneous, 3 times daily OBJECTIVE Blood pressure (!) 155/92, pulse 83, temperature 36.7 ??C (98.1 ??F), temperature source Oral, resp. rate 15, height 1.753 m (5' 9 ), weight 92.6 kg (204 lb 2.3 oz), SpO2 98 %. GENERAL: no acute distress, cooperative SKIN: warm and dry, no rashes, wounds, ulcers EYES: conjunctiva clear, EOMI, PERRLA ENT: intact, mucous membranes moist, no apparent injury HEAD/NECK: neck supple, no apparent injury, no cervical lymphadenopathy RESPIRATORY/THORAX: breath sounds equal. Nonlabored. Inspiratory/expiratory wheezes noted. No crackles appreciated. CARDIOVASCULAR: regular rate and rhythm, normal S1 and S2, no murmurs, pulses 2+, no edema GASTROINTESTINAL: bowel sounds normal, soft, non-tender, no hepatosplenomegaly MUSCULOSKELETAL: no joint swelling, full range of motion in all extremities. Left leg AKA. 1+ pitting edema to knee on right leg. Chronic venous stasis dermatitis present on RLE. NEUROLOGICAL: CN II-IX intact grossly, interactive and normal tone PSYCHOLOGICAL: Alert & Oriented x4, appropriate mood and behavior Results / Imaging CBC: Lab Results Component Value Date WBC 6.24 02/05/2023 HGB 11.3 (L) 02/05/2023 HCT 35.0 (L) 02/05/2023 PLT 190 02/05/2023 MCV 87 02/05/2023 MCH 28.1 02/05/2023 MCHC 32.3 02/05/2023 RDW 13.9 02/05/2023 NRBC 0.0 02/05/2023 Differential: Lab Results Component Value Date WBC 6.24 02/05/2023 Coagulation: No results found for: INR , PT , PTT , CLFGN Renal: Lab Results Component Value Date NA 140 02/05/2023 K 4.3 02/05/2023 CL 104 02/05/2023 CO2 25 02/05/2023 BUN 92 (H) 02/05/2023 CREATININE 4.01 (H) 02/05/2023 GLUCOSE 103 (H) 02/05/2023 CALCIUM 8.4 (L) 02/05/2023 MG 2.2 02/05/2023 PHOS 4.6 (H) 02/05/2023 Liver: No results found for: AST , ALT , ALPHO , BILITOT , BILIDIR Glucose: Lab Results Component Value Date PGLU 78 02/05/2023 PGLU 89 02/05/2023 PGLU 195 (H) 02/05/2023 PGLU 76 02/05/2023 PGLU 144 (H) 02/04/2023 PGLU 179 (H) 02/04/2023 Lab Results Component Value Date HGBA1C 6.6 (H) 02/03/2023 Most recent Echocardiogram (02/04/23): Left Ventricle: The left ventricle is dilated. [...] trileaflet. The cusp(s) are thickened. The cusp(s) arecalcified. There is aortic annular calcfication present. The noncoronary cusp is partially flail. There is a possible mass or vegetation on the aortic valve. There is moderate aortic valve regurgitation. There is calcific aortic sclerosis without hemodynamically significant aortic stenosis. The peak gradient is 22 mmHg. The mean gradient is 12 mmHg. The estimated aortic valve area by the continuity equation is 2.4 cm2. Mitral Valve: There is moderate to severe mitral regurgitation with a central jet. The estimated mitral valve regurgitant fraction is in the severe (>/=50%) range. The mechanism for the mitral regurgitation is likely secondary to LV chamber dilatation. There is no recent study available for direct [id number] comparison. Consider further evaluation with a transesophageal echocardiogram if clinically indicated. ECG/Telemetry: - Sinus rhythm with diffuse T wave inversions. ASSESSMENT/PLAN Robert Hurley is a 57 yoM with PMH COPD, HTN, HFrEF, T2DM, HLD, CAD s/p stents, TX, CAMACHO cirrhosis, depression, and left AKA presents with acute hypoxic respiratory failure secondary to HFrEF exacerbation and possible Type 1 NSTEMI. # Acute Hypoxic Respiratory Failure # HFrEF Exacerbation - Pt had adequately been diuresed with adequate urine output. - Upon admission, BNP of 67,730. - Required BiPAP, HFNC and transitioned to NC. Currently on 2L with 100% saturation. - 4.3 L UO yesterday. - Echo noted at 32% and was noted to be 50% at OSH 2 days ago. Plan: - Will continue to monitor volume status including peripheral edema and respiratory status. Will monitor UO. - Will given 4mg of Bumex to monitor output. - Will consider BB after review of volume status today. Pharmacy to review SGLT- 2 options. # Possible Type 1 NSTEMI - Pt has established history of CAD with PCI 2018 - Calcified coronary vessels as seen on CT. - Troponin at OSH from 200 to 900. 218 to 198 trops at [facility] - Will hold off on cardiac cath technologist due to renal function. - Pt was loaded with aspirin. Maintenance of Aspirin and Plavix. - Pt is currently on Atorvastatin 80. - Place patient on Heparin Drip. - Will continue nitroglycerin - Possibly will restart Coreg 6.25 home dose. - Possibly cardiac cath technologist next week. # KOKO on CKD - Cr has been trending upward at 4.01 from 3.93 - Bl unknown; however CKD secondary to diabetic nephropathy and HTN nephropathy probable. - Possible cardiorenal will assess, possibly will hold diuretic tomorrow to monitor kidney function. # Aortic Valve Vegetation - Noted on TTE - Blood cultures collected. Does not appear to have bacteremia. - Possibly will have EDD next week. Will continue to monitor clinical status- as patient does not look toxic appearing, is afebrile, hemodynamically stable and clinically looks well. # T2DM - Will continue insulin therapy - Pt is NPO, will have to adjust with PO intake. # HTN - Pt was previously on clonidine at home. - Will start patient on taper for clonidine, to be completed on Wednesday. - Will start Hydralazine 25 TID. - Will hold Losartan 20 and Carvedilol 6.25, Amlodipine and hydrochlorothiazide 25 Chronic Conditions # COPD- Duoneb therapy # Cirrhosis, CAMACHO vs Chronic Hep B: Continue Entecavir F: PO E: monitor and replete PRN N: Regular Diet. DVT ppx: Hep drip Code Status: full Dispo: Admit to [facility] Josh Mcmanus MD Internal Medicine, PGY-1 * Progress Notes - Madelyn Jolley RN - 02/05/2023 12:11 PM EST Case Management Adult Initial Progress Note Robert Hurley 57 y.o. male CSN: [id number] Admission: 02/03/2023 6:36 AM Primary Problem: Acute respiratory failure with hypoxia (CMS/HCC) Technical Sales Representative reviewed chart and spoke with patient to complete this Initial Case Management Assessment. PCP: Terence Ring Emergency Contact: Extended Emergency Contact Information Primary Emergency Contact: Saurabh Hurley Mobile Relation: Other Preferred language: Luxembour[place] Technician Assistant needed? No Insurance: Primary Visit Coverage Payer Plan Sponsor Code Group Number Group Name MEDICARE MEDICARE PART A ONLY Primary Visit Coverage Subscriber Subscriber ID Subscriber Name Subscriber N Subscriber Address [id number] ROBERT HURLEY JR [id number] [place] [address] Secondary Visit Coverage Payer Plan Sponsor Code Group Number Group Name [place] Secondary Visit Coverage Subscriber Subscriber ID Subscriber Name Subscriber SSN Subscriber Address [id number] ROBERT HURLEY [id number] [address] Patient information: Primary Caregiver: Self Support System: Immediate family Daily Living Activities: Functional Status: Independent Living Arrangements: Alone Type of Residence: Private residence [address] [address] Smoker in the Home?: N/A Current DME: Equipment Currently Used at Home: cane, straight, walker, rolling, wheelchair, manual Income Information: Housing Circumstances-Z Codes: Patient Referred to: Anticipated Discharge Date: TBD Patient's Discharge Goal: Patient/Family Anticipates Transition to: home with family Assistance Available at Discharge: Availability of Care Givers (#Hours): 5-9 hours Discharge Transport: Transportation Anticipated: family or friend will provide Follow Up Transport: Transportation Needed to Follow up Appoinments: Family/Friend will Provide Home Health / Home Infusion / Outpatient Dialysis Services: none Living Will/Advance Directive/Power of Shovel Oiler /Guardian: Additional Comments: Patient states he lives alone. He son provides some assistance but works and cannot provide 24 hourassistance. He denies any HH at this time. States he has a cane, wheelchair and RW at home. He drives or son provides assistance with transportation. CM will continue to follow. Madelyn Jolley RN * Progress Notes - Gonzalo Velazquez MD - 02/05/2023 7:32 AM EST Images from the original note were not included. Hospital Medicine Transfer Note Subjective Length of stay: 2 days Brief Patient Summary: 57M w/ CAD s/p stents, HFrEF, COPD, CKD, IDDM, LLE AKA presenting w/ suspected ACS, HFrEF exacerbation, KOKO. Diuresing. On DAPT/heparin gtt. Also treating for CAP w/ rocephin. Edited by: Jake Saunders MD at 02/03/2023 5264 Presentation and Hospital Course Robert Hurley is a 57 y.o. male with a PMH of COPD, HTN, HFrEF (unknown EF), T2DM, HLD, CAD c/b Mis/p 2x stents (most recently ~2018 per patient), cirrhosis, depression, and left AKA who presents from OSH with SOA and acute respiratory distress. Pt was admitted on 02/01 at OSH ICU for AHRF in setting of bilateral pneumonia. He was treated on BiPAP with azithromycin and recophin in their ICU. He was also diagnosed with NSTEMI with troponin's trending from 200>900. After he began to feel better, he left AMA before being transferred to PCI-capable facility 02/02. That night, his SOA worsened at which point he went to OSH ED and was then transferred to ED. At ED, pt had GCS 15 and was saturating poorly at around 91% on high flow NC and was transitioned to BiPAP. From BiPAP he was switched to high flow NC 25 L, currently on 6 L. CTPE showed bilateraleffusions and diffuse bilateral reticular opacities concerning for pneumonia. Workup showed WBC 17.9, Serum Cr 3.61, K 6.1, BNP 67,730, Troponin 218. VBG 7.26/54/29/24. Pt was given Vanc, Rocephin, and ativan. Cardiology consulted and patient admitted to hospital medicine service. Patient was continued on IV Rocephin for possible CAP. Patient diuresed with net negative 6L duringadmission with clinical improvement of his respiratory status. He was started on DAPT and heparin gtt for presumed Type 1 NSTEMI. PCI deferred by cardiology team due to lack of persistent ischemia. TTE obtain 02/04/23 showed possible vegetation/mass on aortic leaflet with partial flail. Also with si gnificantly decreased EF compared to a few days ago 50%->30%. Diastolic dysfunction also noted .Blood cultures collected. Potassium level normalized with IV diuresis. KOKO initially presumed to besecondary to cardiorenal syndrome, however creatinine did not improve with diuresis. Formal workup for KOKO obtained 02/05/2023 and is pending. Patient is hemodynamically stable for transfer to Cardiology service at this time for remainder of care and coordination of additional cardiac workup. Review of Systems Review of Systems Constitutional: Negative for chills and fever. Respiratory: Negative for shortness of breath. Cardiovascular: Positive for leg swelling. Negative for chest pain. Gastrointestinal: Negative for abdominal pain. Genitourinary: Negative for difficulty urinating. Psychiatric/Behavioral: Negative. Objective Objective Last Recorded Vitals Blood pressure (!) 153/95, pulse 79, temperature 36.7 ??C (98.1 ??F), temperature source Oral, resp. rate 16, height 1.753 m (5' 9 ), weight 92.6 kg (204 lb 2.3 oz), SpO2 98 %. Physical Exam Constitutional: General: He is not in acute distress. HENT: Head: Normocephalic and atraumatic. Right Ear: External ear normal. Left Ear: External ear normal. Cardiovascular: Rate and Rhythm: Normal rate and regular rhythm. Heart sounds: Murmur (systolic murmur best heard in RUSB) heard. Pulmonary: Breath sounds: Wheezing (mild intermittent wheezing) present. Abdominal: General: Bowel sounds are normal. There is no distension. Palpations: Abdomen is soft. Tenderness: There is no abdominal tenderness. Musculoskeletal: Right lower leg: Edema (2+ pitting to knee) present. Comments: Left leg s/p AKA Skin: Comments: Improvement of desquamating rash on RLE Neurological: General: No focal deficit present. Mental Status: He is oriented to person, place, and time. Psychiatric: Mood and Affect: Mood normal. Behavior: Behavior normal. Relevant Results Labs in last 18 hours CBC WBC 6.24 Hb 11.3 (L) Plt 190 Hct 35.0 (L) ANC ?? INR ??, PTT ??, Anti-Xa ?? BMP Na 140 Cl 104 BUN 92 (H) Glu 103 (H) K 4.3 Co2 25 Cr 4.01 (H) Ca 8.4 (L) iCa ?? Mg 2.2, Phos 4.6 (H) Lactate ?? LFT AST ?? AlkPhos ?? T Prot ?? ALK ?? Bili ?? Alb ?? D.Bili ?? IMAGING (past 24h): ECHO: Possible vegetation/mass on aortic leaflet with partial flail. Also with significantly decreased EF compared to a few days ago 50%->30%. Diastolic dysfunction also noted. Assessment/Plan Assessment & Plan Principal Problem: Acute respiratory failure with hypoxia (CMS/HCC) Robert Hurley is a 57 y.o. male with PMH as per above who presents with acute worsening of SOA dueto NSTEMI Type I resulting in HFrEF exacerbation. Pt has improved clinically and respiratory statusstable at this time on 2LNC. Patient will be transferred to cardiology service at this time for coordination of cardiac work up and remainder of care. #Mass/vegetation seen on aortic valve leaflet- thrombus vs infection vs marantic No fever, hemodynamics have improved significantly since admission and is on Rocephin. PLAN - Blood cultures pending - Continue DAPT and Heparin gtt while monitoring for toxicity with Xa levels regularly - Continue current abx - Transfer to cardiology service for coordination of cardiac workup #Acute Hypoxic Respiratory Failure iso HFrEF exacerbation due to NSTEMI, very concerning for Type I PMHx, symptoms, and labs consistent with HFrEF exacerbation as cause of respiratory failure. Troponin 218 to 198 at , BNP 67,730 Pt has not been on home O2 for 2 years. Completed 3 days of Azithromycin at OSH O2 sat 94% on 3L NC Has responded well to high dose diuretics PLAN -Cardiology consulted, appreciate recommendations. Continue real time conversations with cards fellow despite no note from them today. They are giving advice via phone/[employer] chat -DAPT (Plavix and ASA-81) and Heparin gtt (for total of 48 hours) -ContinueAtorvastatin to 80mg for high-intensity dose -Holding IV Diuresis iso KOKO as patient has had good response and is net negative 6L since admission. -Continue Rocephin for total course of 7 days (end 02/05) -Restarted home nitroglycerin -Titrate supplemental oxygen as needed to maintain O2 sats >88% #KOKO due to suspected cardiorenal syndrome in the setting of CKD due to hypertensive and diabetic nephropathy Serum Cr 4.01 (unknown baseline) S/p IV diuresis in ED with improvement in potassium (now at 4.3 from 5.6) PLAN -Formal KOKO w/u including UA with microscopy, urine protein/creatinine ratio, urine sodium -Holding IV Diuresis (4 mg Bumex) -follow potassium with BMP- ordered for tomorrow -Holding other nephrotoxic medications Chronic Management -COPD- PRN Duonebs -HTN: hold amplodipine, carvidelol, HCTZ, losartan -DM2 c/b peripheral neuropathy s/p L AKA: 20 Units basal, Sliding scale insulin; holding gabapentin -HLD: Continue high-intensity atorvastatin to 80mg -Cirrhosis, CAMACHO vs Chronic Hep B: Holding Entecavir Fluids: PO DVT Ppx: Currently on heparin gtt Diet: Diabetic diet 2g Na, 1500ml fluid restriction Code status: Full Code Dispo: Transfer to Cardiology Gonzalo Velazquez MD Internal Medicine-Pediatrics, PGY-1 [facility] Cosigned by Cary Restrepo MD at 02/07/2023 3:23 PM EST Associated attestation - Cary Restrepo MD - 02/07/2023 3:23 PM EST I saw and evaluated the patient with the resident/fellow. I discussed the case with the resident/fellow and agree with the findings and plan as documented. * Progress Notes - Gonzalo Velazquez MD - 02/04/2023 10:44 AM EST Images from the original note were not included. Hospital Medicine Progress Note Subjective Length of stay: 1 day Brief Patient Summary: 57M w/ CAD s/p stents, HFrEF, COPD, CKD, IDDM, LLE AKA presenting w/ suspected ACS, HFrEF exacerbation, KOKO. Diuresing. On DAPT/heparin gtt. Also treating for CAP w/ rocephin. Edited by: Jake Saunders MD at 02/03/2023 1239 Subjective Pt is breathing well, no fevers or chills, no chest pain, and making urine appropriately. Sitting up in bed on room air satting >92%. Reports he feels like it is easier to breath. Review of Systems Review of Systems Constitutional: Negative for chills and fever. Respiratory: Negative for shortness of breath. Cardiovascular: Positive for leg swelling. Negative for chest pain. Gastrointestinal: Negative for abdominal pain. Genitourinary: Negative for difficulty urinating. Psychiatric/Behavioral: Negative. Objective Objective Last Recorded Vitals Blood pressure 112/72, pulse 84, temperature 36.8 ??C (98.2 ??F), temperature source Oral, resp. rate 15, height 1.753 m (5' 9 ), weight 92.6 kg (204 lb 2.3 oz), SpO2 94 %. Physical Exam Constitutional: General: He is not in acute distress. HENT: Head: Normocephalic and atraumatic. Right Ear: External ear normal. Left Ear: External ear normal. Cardiovascular: Rate and Rhythm: Normal rate and regular rhythm. Pulmonary: Breath sounds: Examination of the right-middle field reveals rales. Examination of the left-middle field reveals rales. Examination of the right-lower field reveals rales. Examination of the left-lower field reveals rales. Rales present. Abdominal: General: Bowel sounds are normal. There is no distension. Palpations: Abdomen is soft. Tenderness: There is no abdominal tenderness. Musculoskeletal: Right lower leg: Edema (2+ pitting to knee) present. Comments: Left leg s/p AKA Skin: Comments: Improvement of desquamating rash on RLE Neurological: General: No focal deficit present. Mental Status: He is oriented to person, place, and time. Psychiatric: Mood and Affect: Mood normal. Behavior: Behavior normal. Relevant Results Labs in last 18 hours CBC WBC 16.27 (H) Hb 12.4 (L) Plt 270 Hct 38.0 (L) ANC ?? INR 1.1, PTT ??, Anti-Xa ?? BMP Na 140 Cl 102 BUN 83 (H) Glu 141 (H) K 5.2 (H) Co2 23 Cr 3.93 (H) Ca 8.4 (L) iCa 4.3 (L) Mg 2.4, Phos 5.1 (H) Lactate ?? LFT AST ?? AlkPhos ?? T Prot ?? ALK ?? Bili ?? Alb ?? D.Bili ?? IMAGING (past 24h): XR Chest 1 View Result Date: 02/04/2023 Impression: Redemonstrated bilateral airspace opacities, improved on the left. CRITICAL RESULT: No.COMMUNICATION: Per this written report. By electronically signing this report, I, the attending physician, attest that I have personally reviewed the images/data for the above examination(s) and agree with the final edited report. Drafted by Macrina Dao MD on 02/04/2023 8:37 AM Final report signed by Douglas Norman MD on 02/04/2023 9:29 AM ECHO: Possible vegetation/mass on aortic leaflet with partial flail. Also with significantly decreased EF compared to a few days ago 50%->30%. Diastolic dysfunction also noted. Assessment/Plan Assessment & Plan Principal Problem: Acute respiratory failure with hypoxia (CMS/HCC) Robert Hurley is a 57 y.o. male with PMH as per above who presents with acute worsening of SOA dueto NSTEMI Type I resulting in HFrEF exacerbation. Pt has improved clinically. He has difficulty tolerating BiPAP machine and removed the HFNC as well, however was satting well this morning on RA. #Mass/vegetation seen on aortic valve leaflet- thrombus vs infection vs marantic No fever, hemodynamics have improved significantly since admission and is on Rocephin. Will obtain blood cultures and continue current abx, DAPT and heparin. Will discuss with cards- ?EDD #Acute Hypoxic Respiratory Failure iso HFrEF exacerbation due to NSTEMI, very concerning for Type I PMHx, symptoms, and labs consistent with HFrEF exacerbation as cause of respiratory failure. Troponin 218 to 198 at , BNP 67,730 Pt has not been on home O2 for 2 years. Completed 3 days of Azithromycin at OSH O2 sat 94% on 3L NC Has responded well to high dose diuretics PLAN -Cardiology consulted, appreciate recommendations. Continue real time conversations with cards fellow despite no note from them today. They are giving advice via phone/[employer] chat -DAPT (Plavix and ASA-81) and Heparin gtt (for total of 48 hours) -Will increase Atorvastatin to 80mg for high-intensity dose -IV Diuresis with goal net neg 1-2L/day (will give additional 4 mg Bumex and 10mg metolazone) -Continue Rocephin for total course of 7 days (end 02/05) -Restarted home nitroglycerin -Titrate supplemental oxygen as needed to maintain O2 sats >88% #KOKO on CKD due to likely cardiorenal syndrome c/b hyperkalemia Serum Cr 3.91 (unknown baseline) S/p IV diuresis in ED with improvement in potassium (now at 5.2 from 5.6) PLAN -Continue IV Diuresis (4 mg Bumex) and monitor renal function on daily BMP -follow potassium with BMP- ordered for tomorrow -Holding other nephrotoxic medications Chronic Management -COPD- PRN Duonebs -HTN: hold amplodipine, carvidelol, HCTZ, losartan -DM2 c/b peripheral neuropathy s/p L AKA: 20 Units basal, Sliding scale insulin; holding gabapentin -HLD: Continue high-intensity atorvastatin to 80mg -Cirrhosis, CAMACHO vs Chronic Hep B: continue Entecavir Fluids: PO DVT Ppx: Currently on heparin gtt Diet: Diabetic diet 2g Na, 1500ml fluid restriction Code status: Full Code Discharge Planning: Anticipated discharge to: TBD Anticipated discharge needs: TBD Family Contact: Saurabh Hurley Follow-up: TBD No future appointments. Electronically Signed by: Rosaline Ovalles - 02/04/2023 - 10:44 AM I saw and evaluated the patient with the medical student. I discussed the case with the medical student and agree with the findings and plan as documented. I personally performed the Exam and MedicalDecision Making. Gonzalo Velazquez MD Internal Medicine-Pediatrics, PGY-1 [facility] Cosigned by Cary Restrepo MD at 02/04/2023 7:59 PM EST Associated attestation - Cary Restrepo MD - 02/04/2023 7:59 PM EST I saw and evaluated the patient. I discussed the case with the medical student and resident/fellow and agree with the findings and plan as documented. I personally participated in the management of the patient. * Significant Event - Rohit Marin MD - 02/04/2023 2:19 AM EST Patient admitted on 02/03/23 for acute hypoxic and hypercapnic respiratory failure 2/2 acute decompensated HF (unknown EF, BNP 67k). On arrival, MICU was consulted for evaluation. At the time of theirevaluation, he was on BiPAP 40% 12/6 saturating 100%, VBG 7.26/54. They recommended short term NIPPV for volume overload and hypoxic respiratory failure with transition to HFNC as tolerated; he did not meet criteria for MICU admission. He was initially treated with 160mg IV Lasix with 1L UOP. Laterin the afternoon, he was re-dosed with 160mg IV Lasix with only 200cc UOP. At 9pm, he was re-dosed with 4mg IV Bumex and 10mg metolazone. Patient had 300+ml UOP. Patient intermittently refused BiPAP at which time he was placed on 6L NC. While on NC, he saturated 87-88% and became tachypneic with increased WOB. He was eventually convinced to wear continuous BiPAP which he wore for approximately 4-5 hours. Upon re-evaluation, patient was no longer tachypneic (RR 12-20), saturations 100%, and VBG improved to 7.32/44. The decision was made to trial the patient on HFNC. While the patient was intermittently refusing BiPAP and becoming tachypneic with increased WOB on NC, I personally spoke with both the CCU and MICU services. The patient remained non-oliguric and after convincing him to wear BiPAP continuously for a short period of time, he showed marked improvement as discussed above, thus he did not meet criteria for admission to their services. It was recommended to trial him off BiPAP, so he was transitioned to HFNC 40% 30L which he tolerated well. Additional diuretics were given to maintain UOP. Rohit Marin MD Internal Medicine PGY-1 * Significant Event - Eva Robin RN - 02/03/2023 10:25 PM EST 02/03/23194902/03/23199902/03/230 Event/Notification Description Event Location -- -- [place] Department and Room Number -- -- 214 ED Reason for Rapid Response Team notification -- -- RN concern Is the patient a DNR? -- -- No Type of Event -- -- Concern noted Method of Notification -- -- Nurse (specify) Vitals Heart Rate 94 93 -- Heart Rate Source Monitor -- -- Resp 26 23 -- SpO2 97 % 95 % -- BP (!) 155/92 (!) 150/88 -- MAP (mmHg) (!) 111 (!) 107 -- BP Method Automatic -- -- Patient Position Lying -- -- Onset and Notification Specifics Time BRAKE REPAIRER HYDRAULIC RN Notified -- -- 2129 Time BRAKE REPAIRER HYDRAULIC RN Arrived -- -- -- Monitoring Data For Monitoring Data, See: -- -- -- Rapid Response Outcome Rapid Response Termination Due to -- -- -- Provider Notification Shift Event -- -- -- 02/03/23213902/03/232214 Event/Notification Description Event Location -- -- Department and Room Number -- -- Reason for Rapid Response Team notification -- -- Is the patient a DNR? -- -- Type of Event -- -- Method of Notification -- -- Vitals Heart Rate -- 95 Heart Rate Source -- Monitor Resp -- 18 SpO2 -- 95 % BP -- -- MAP (mmHg) -- -- BP Method -- -- Patient Position -- -- Onset and Notification Specifics Time BRAKE REPAIRER HYDRAULIC RN Notified -- -- Time BRAKE REPAIRER HYDRAULIC RN Arrived 2139 -- Monitoring Data For Monitoring Data, See: Assessment flowsheet;I/O flowsheet -- Rapid Response Outcome Rapid Response Termination Due to Patient remained on floor -- Provider Notification Shift Event Rapid response -- CODE STATUS: Full Code [place] Coma Scale Score: 15 Cardiac Rhythm: Normal sinus rhythm Deterioration Index Score: 38.49 (02/03/232215) Initiation: BRAKE REPAIRER HYDRAULIC received page r/t concern noted. BRAKE REPAIRER HYDRAULIC advised of pt with potential for deterioration. RN concern r/t acute respiratory distress, increased work of breathing, and volume overload. BRAKE REPAIRER HYDRAULIC en route. Assessment: Upon arrival: Pt's baseline and trends reviewed via EMR. Upon review of pt chart, current patient status is consistent with trending baseline. VS are stable . Pt exhibits: on going hypertension, significant tachypnea, and increased WOB. Airway: Airway patent. With no obstruction noted. Pt is awake, alert, oriented, and anxious. Responding to verbal stimuli.. Breathing: Pt oxygen requirements: Upon BRAKE REPAIRER HYDRAULIC arrival, pt maintaining adequate oxygen saturation on 6 liters/min via nasal cannula. Currently: 6 liters/min via nasal cannula Placed on: 40% O2 via Bipap Respirations are labored , shallow, and rapid . Use of accessory muscles noted . Pt maintaining tripod position . Pt appears to be in moderate respiratory distress at this time. Lungs sounds: significant coarse crackles heard through out and wheezing bilaterally, upon auscultation. Pt has non-productive weak cough. Circulation: Pt's skin is pink and diaphoretic. Disability: GCS:15. (4 - Opens eyes on own / 5 - Alert and oriented / 6 - Follows simple motor commands). Exam: GI/: minimally responsive to diuresis efforts. Interventions: Pharmaceutical Intervention: 4 mg bumetanide administered (prior to BRAKE REPAIRER HYDRAULIC arrival). 10 mg metolazone given (prior to BRAKE REPAIRER HYDRAULIC arrival). Pt educated (by BRAKE REPAIRER HYDRAULIC) on importance of plan of care compliance (foremost positive pressure NIV). Pt verbalizes understanding significance of bipap and agrees to comply with MD order. BRAKE REPAIRER HYDRAULIC proposed initiating fluid restriction with strict I&Os. Requested MD to also consider additional medication for pulmonary congestion and BP control r/t extensive cardiac hx . Reassessment: VS are stable. Outcome: No further orders at this time. Anjum Combs - Primary RN, denies any further need of assistance from BRAKE REPAIRER HYDRAULIC at this time. VS stable upon BRAKE REPAIRER HYDRAULIC departure. Pt will continue to be closely monitored. Primary RN agrees to notify BRAKE REPAIRER HYDRAULIC and primaryprovider with any acute changes in status or further concerns. Follow up: No additional interventions warranted at this time. Will relay current pt status & concerns with oncoming BRAKE REPAIRER HYDRAULIC team. Additional staff involvement: Anjum Combs - Primary RN Anjum Marin MD - Internal Medicine - Senior Administrative Assistant Provider Hx: Robert Hurley is a 57 y.o. male with PMH of: Patient Active Problem List Diagnosis 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) Impaired mobility Acute respiratory failure with hypoxia (CMS/HCC) Meds: Current ABX: cefTRIAXone (Rocephin) IVPB 2 g (Mini-Bag Plus) entecavir Current Anticoagulant: heparin (Porcine) heparin (porcine) - COM Adult Full Dose Protocol - MAR Re-bolus Calculator ED Events None Trending Results: Patient Vitals for the past 24 hrs: BP Temp Temp src Pulse Resp SpO2 Height Weight 02/03/23 2215 -- -- -- 95 18 95 % -- -- 02/03/231999 (!) 150/88 -- -- 93 23 95 % -- -- 02/03/23 1950 (!) 155/92 -- -- 94 26 97 % -- -- 02/03/23 1947 -- -- -- 93 25 95 % -- -- 02/03/23 1836 -- -- -- 93 20 (!) 88 % -- -- 02/03/23 1626 -- -- -- -- -- -- -- 92.6 kg (204 lb 2.3 oz) 02/03/23 1600 (!) 142/96 36.8 ??C (98.2 ??F) Oral 98 22 91 % -- -- 02/03/23 1534 -- -- -- 99 (!) 27 91 % -- -- 02/03/23 1520 -- -- -- -- -- 92 % -- -- 02/03/23 1517 -- -- -- -- -- 90 % -- -- 02/03/23 1510 -- -- -- -- -- 90 % -- -- 02/03/23 1505 -- -- -- -- -- 95 % -- -- 02/03/23 1407 (!) 142/89 36.5 ??C (97.7 ??F) Oral 94 23 95 % -- -- 02/03/23 1042 (!) 144/86 36.8 ??C (98.3 ??F) Oral 84 21 94 % -- -- 02/03/23 1033 -- 36.7 ??C (98 ??F) Oral -- -- -- -- -- 02/03/23 1030 (!) 144/86 -- -- 84 19 95 % -- -- 02/03/23 1002 (!) 143/83 -- -- 83 (!) 27 96 % -- -- 02/03/23 0900 137/81 -- -- 82 20 95 % -- -- 02/03/23 0830 (!) 136/91 -- -- 81 18 95 % -- -- 02/03/23 0813 121/79 -- -- 85 26 98 % -- -- 02/03/23 0800 (!) 67/52 -- -- 93 (!) 35 90 % -- -- 02/03/23 0740 (!) 120/109 -- -- 96 (!) 27 90 % -- -- 11/08/23 0739 -- -- -- -- (!) 32 91 % -- -- 02/03/23 0730 (!) 120/109 -- -- 99 17 91 % -- -- 02/03/23 0700 124/79 -- -- 84 26 93 % -- -- 02/03/23 0641 (!) 137/97 36.4 ??C (97.5 ??F) Oral 86 26 91 % 1.753 m (5' 9 ) 97.2 kg (214 lb 4.6 oz) 02/03/2340 -- -- -- -- -- 91 % -- -- 02/03/23636 -- -- -- 85 24 91 % -- -- Intake/Output Summary (Last 24 hours) at 02/03/20232224 Last data filed at 02/03/2023 1629 Gross per 24 hour Intake 675 ml Output 1200 ml Net -525 ml Net IO Since Admission: -525 mL [02/03/232224] Results from last 7 days Lab Units 02/03/23195202/03/23112202/03/23 0648 PH ROSA 7.29* 7.29* 7.26* PCO2 ROSA mmHg 45 50 54 PO2 ROSA mmHg 42* 39 29 O2 SAT, VENS, COLE % 72 61* 39* Results from last 7 days Lab Units 02/03/23195202/03/23112202/03/23 0850 02/03/23 0648 BASE EXC mmol/L -5.2* -3.3* -- -3.3* HCO3 ROSA mmol/L 21* 24 -- 24 TROPONIN T2 ng/L -- -- 198* -- TROPONIN T DELTA ng/L -- -- 20* -- NT PROBNP pg/mL -- -- -- 67,730* LACTATE mmol/L 4.0* 2.1 -- 2.1 PROCALCITONIN ng/mL -- -- -- 0.34* HEPATITIS C AB INT -- -- -- Negative Results from last 7 days Lab Units 02/03/23195202/03/23195102/03/236 02/03/23 1123 02/03/23 0648 WBC 10*3/uL -- -- 17.41* -- 17.93* HEMOGLOBIN g/dL -- -- 12.2* -- 12.9* HEMATOCRIT % -- -- 38.8* -- 41.0 HEMATOCRIT, WHOLE BLOOD % 36.7* -- -- 36.7* 39.9* CREATININE mg/dL -- 3.77* -- -- 3.61* BUN / CREAT RATIO -- 21 -- -- 19 ANION GAP mmol/L -- 14 -- -- 12 CO2 mmol/L -- 19* -- -- 21* AST U/L -- -- -- -- 43 ALT U/L -- -- -- -- 19 ALKALINE PHOSPHATASE U/L -- -- -- -- 137* Results from last 7 days Lab Units 02/03/23195202/03/23195102/03/23 1403 02/03/23 1123 02/03/23 0648 GLUCOSE mg/dL -- 422* -- -- 227* GLUCOSE, WHOLE BLOOD mg/dL 413* -- -- 260* 208* POTASSIUM mmol/L -- 5.6* 5.6* -- 6.1* POTASSIUM, WHOLE BLOOD mmol/L 5.5* -- -- 4.8 5.8* MAGNESIUM mg/dL -- 2.2 -- -- 2.3 CALCIUM IONIZED WB mg/dL 4.2* -- -- 4.3* 4.4* SODIUM mmol/L -- 134* -- -- 135* Lab Results Component Value Date WBC 17.41 (H) 02/03/2023 WBC 17.93 (H) 02/03/2023 WBC 3.36 (L) 03/08/2020 LACTATE 1.9 07/12/2019 LACTATE 2.1 03/02/2019 TROPONINT0 218 (H) 02/03/2023 TROPONINT2 198 (H) 02/03/2023 TROPD 20 (H) 02/03/2023 BNP 67,730 (H) 02/03/2023 PROCAL 0.34 (H) 02/03/2023 CK 60 07/12/2019 ANIONGAP 14 02/03/2023 ANIONGAP 12 02/03/2023 ANIONGAP 10 03/08/2020 PLT 302 02/03/2023 PLT 249 02/03/2023 PT1 14.4 (H) 02/03/2023 PT1 12.3 (L) 03/08/2020 INR 1.2 (H) 02/03/2023 INR 0.9 03/08/2020 No results found for: INTERLEUKIN , NARESH , CYTOGENINTER , IGM , IGG , IGE , CEA , CA153 , WZ844SR , CA125 , LABCA2 , HSTCAPSTUMID , ANTIGEN , TGPCR , TOXOGONDII Predictive Models: Predictive Model Details 5 (Medium) Factor Value Calculated 02/03/2023 22:17 22% SIRS pulse criterion met Early Detection of Sepsis Model 14% Number of active cephalosporin orders 2 14% SIRS WBC criterion met 12% Procalcitonin high (0.34 ng/mL) 10% Age 57 4% MCHC normal (31.4 g/dL) 4% Neutrophils normal (91.0 %) 3% Number of active analgesic antipyretic orders 3 3% RDW normal (14.1 %) 2% Number of active vancomycin orders 1 2% Hematocrit low (36.7 %) 2% Diagnosis of obesity present 2% Number of active beta-adrenergic agent orders 3 1% Clinically Relevant Sex not female 1% Hemoglobin A1C high (6.6 %) 1% Number of peripheral IVs 2 1% Number of active saline orders 6 1% Hemoglobin low (12.2 g/dL) 1% Number of active loop diuretic orders 4 0% Lymphocytes normal (5.0 %) 0% Number of active antianginal orders 1 0% Monocytes normal (3.0 %) MELD 3.0: 22 at 02/03/2023 7:52 PM MELD-Na: 23 at 02/03/2023 7:52 PM Calculated from: Serum Creatinine: 3.77 mg/dL (Using max of 3 mg/dL) at 02/03/2023 7:52 PM Serum Sodium: 134 mmol/L at 02/03/2023 7:52 PM Total Bilirubin: 0.3 mg/dL (Using min of 1 mg/dL) at 02/03/2023 6:48 AM Serum Albumin: 3.4 g/dL at 02/03/2023 6:48 AM INR(ratio): 1.2 at 02/03/2023 4:20 PM Age at listing (hypothetical): 57 years Sex: Male at 02/03/2023 7:52 PM * ED Notes - John Combs RN - 02/03/2023 10:05 PM EST Patient placed back on BiPAP @ this time, RT @ bedside John Combs RN 02/03/232205 * ED Notes - John Combs RN - 02/03/2023 9:55 PM EST Rapid response tennis desk team member @ bedside assessing patient, no rapid has been called, BRAKE REPAIRER HYDRAULIC was notified prior of poor patient condition and to be aware of the patient John Combs RN 02/03/232154 * ED Notes - John Combs RN - 02/03/2023 9:39 PM EST Rapid Response team notified of patient status @ this time as precaution in case patient decompensates d/t poor ability to adhere to recommended treatment from providers John Combs RN 02/03/232139 * ED Notes - John Combs RN - 02/03/2023 9:07 PM EST freight caller provider notified of O2 sats in high 80s%, as well as increased work of breathing after self removing BiPAP John Combs RN 02/03/232106 * ED Notes - John Combs RN - 02/03/2023 8:30 PM EST Patient removed BiPAP due to inability to tolerate @ this time, MD notified. Patient placed back on7L NC @ the bedside John Combs RN 02/03/232044 * ED Notes - John Combs RN - 02/03/2023 7:57 PM EST Patient placed on BiPAP @ this time by RT. John Combs RN 02/03/232043 * Consults - Juan Griffith MD - 02/03/2023 1:23 PM ESTAssociated Order(s): Consult to Cardiology Images from the original note were not included. CARDIOLOGY NEW CONSULT NOTE Consult to Cardiology Consult performed by: Juan Griffith MD Consult ordered by: Niko Rodriguez MD Reason For Consult: Elevated Troponin Requesting Attending/Service: Dr. Rodriguez; Emergency Medicine Requested Date/Time: 02/03/23; 1200 SUBJECTIVE History Of Present Illness Robert Hurley is a 57 y.o. male with a past medical history of CAD s/p PCI x 2, ICM with HFrEF (unclear EF), COPD, Diabetes Mellitus s/p LLE AKA, HLD, and HTN who initially presented to the [facility] with a chief complaint of progressive shortness of breath. Cardiology is being consulted for evaluation and recommendations regarding CAD in the setting of elevated troponin. Mr. Hurley was recently evaluated in the [facility] for sudden onset shortness of breath. He was found to have bilateral pneumonia with acute hypoxic respiratory failure. He was placed onbipap and subsequently placed in their ICU. He was also diagnosed with NSTEMI with initial high sensitivity troponin of 200 that reached up to 900. After increasing troponin, the plan was to transferMr. Hurley over to a PCI capable facility to assess for acute coronary syndrome however patient leftagainst medical advice to return home. He then returned to [facility] as shortness of breath returned. He was then transferred from their emergency department to . Upon his arrival to , patient was being treated with Bipap but was subsequently transitioned to HFNC. Review of Systems 14 point ROS reviewed and is otherwise negative except that which is mentioned in the HPI. Past 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 Past 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: [...] OF STENT N/A Cath Stent Placement from [facility] CHOLECYSTECTOMY N/A Cholecystectomy from [facility] Family History Reviewed and non-contributory. Social History Tobacco use: Denies any significant recent usage. Alcohol use: Denies any significant recent usage. Other: Denies any recent illicit drug use. Allergies Penicillins Home Medications Current Outpatient Medications Medication Instructions amLODIPine (NORVASC) 10 mg, Oral, Daily atorvastatin (LIPITOR) 40 mg, Oral, Daily carvedilol (COREG) 6.25 mg, Oral, 2 times daily cloNIDine (CATAPRES) 0.2 mg, Oral, 2 times daily clopidogrel (PLAVIX) 75 mg, Oral, Daily entecavir (BARACLUDE) 0.5 mg, Oral, Daily gabapentin (NEURONTIN) 600 mg, Oral, 3 times daily hydroCHLOROthiazide (HYDRODIURIL) 25 mg, Oral, Daily Levemir 50 Units, Subcutaneous, Daily losartan (COZAAR) 50 mg, Oral, 2 times daily nitroglycerin (NITROSTAT) 0.4 mg, Sublingual, Every 5 min PRN NovoLOG FlexPen ReliOn 20 Units, Subcutaneous, 3 times daily OBJECTIVE Physical Exam Visit Vitals BP (!) 144/86 Pulse 84 Temp 36.8 ??C (98.3 ??F) (Oral) Resp 21 Ht 1.753 m (5' 9 ) Wt 97.2 kg (214 lb 4.6 oz) SpO2 94% BMI 31.64 kg/m?? Smoking Status Every Day BSA 2.18 m?? Physical Exam Constitutional: He appears chronically ill and acutely ill. Eyes: Pupils are equal, round, and reactive to light. Conjunctivae are normal. Neck: No JVD present. Cardiovascular: Normal rate, regular rhythm, S1 normal and S2 normal. Exam reveals no gallop. No murmur heard. Pulmonary/Chest: No stridor. Increased effort noted. He has no rales. He has diffuse wheezes. He exhibits no tenderness. Abdominal: Soft. He exhibits no distension. There is no abdominal tenderness. Musculoskeletal: General: Edema present. Neurological: He is alert and oriented to person, place, and time. Skin: Skin is warm and dry. Primary Study Review: I personally reviewed the the images/tracings of the following studies: ECG Lab Review I personally reviewed the pertinent labs and are notable for elevated troponin with delta (218 to 198), BNP of 67,730, lactate of 2.1, K of 6.1, creatinine of 3.61). Most recent Echocardiogram: - Formal echocardiogram pending. ECG/Telemetry: - Sinus rhythm, diffuse T wave inversions likely indicative of global ischemia, lateral ST segment depressions. ASSESSMENT/PLAN Robert Hurley is a 57 y.o. male who initially presented to the [facility] for acute hypoxic respiratory failure. Cardiology is being consulted for recommendations and management of elevated troponin in setting of mvCAD. 1) Acute on Chronic Hypoxic Respiratory Failure 2) Bilateral Pneumonia 3) mvCAD s/p PCI (unclear intervention anatomy) 4) ICM, HFrEF (unknown EF) 5) KOKO on CKD 6) NSTEMI, Type 1 ACS vs Demand Ischemia Patient presents with acute hypoxic respiratory failure. Troponin is elevated here at [facility] (218 to 198). Reportedly troponin was as high as 900 at the outside facility. Patient denies acute chest pain.Troponin elevation can be attributed to acute hypoxic respiratory failure in the setting of KOKO on CKD, however unable to rule out ACS event at outside facility. CT chest shows mvCAD which likely contributes to degree of demand ischemia. Patient would benefit from further diuresis at this time as well as treatment of pneumonia. Would obtain formal echocardiogram. Do not feel that patient requiresinvasive coronary evaluation at this time, but would be reasonable to pursue as patient's clinical status improves. May perform as outpatient or prior to patient's discharge. Given patient was started on DAPT at the other facility and has not been evaluated with invasive coronary testing, would be reasonable to continue treatment with DAPT and even heparin gtt. Heparin gtt should be given for a to barry of 48 hours. Recommendations: - Continue IV diuresis with goal net negative 1-2L per day. - ECG and presentation are not indicative of acute STEMI so patient should not be rushed to coronary angiography at this time. - Given degree of mvCAD on CT and outside troponin elevation (200 to 900), would be reasonable to treat as NSTEMI Type I with DAPT and heparin gtt. - Will discuss coronary angiography with interventional team as patient's acute hypoxic respiratoryfailure improves. - Obtain formal echocardiogram. If patient does indeed have HFrEF, would plan to begin GDMT as patient's clinical status improves. - Would begin high intensity statin. This consult will be seen and staffed with the following attending physician: Dr. Mitchell. Please page the on-call printing equipment mechanic apprentice with any further questions. I spent 55 minutes performing the following components of the encounter (on the day of the encounter): reviewing History, examining the patient, reviewing imaging and/or labs, Independently interpreting echocardiogram, ECG and/or other imaging results, counseling the patient and family/caregiver, communicating with other health physician assistant primary care, care coordination, and entering clinical information in the EHR. Greater than 50% of the time spent on the encounter was face to face providing direct patient care, counseling for the patient/caregiver, and care coordination. Juan Griffith MD Cardiovascular Disease Fellow, PGY-5 Pager: [phone] Cosigned by Darrin Mitchell MD at 02/05/2023 1:59 PM EST Associated attestation - Darrin Mitchell MD - 02/05/2023 1:59 PM EST I saw and evaluated the patient with the resident/fellow. I discussed the case with the resident/fellow and agree with the findings and plan as documented. * H&P - Gonzalo Velazquez MD - 02/03/2023 12:19 PM ESTAssociated Order(s): Consult to [facility] Images from the original note were not included. Consult to [facility] Consult performed by: Rosaline Ovalles Consult ordered by: Niko Rodriguez MD [facility] Medicine History & Physical Subjective 02/03/2023 Chief Complaint: Chief Complaint Patient presents with Shortness of Breath History Of Present Illness Robert Hurley is a 57 y.o. male with a PMH of COPD, HTN, HFrEF (unknown EF), T2DM, HLD, CAD c/b Mis/p 2x stents (most recently ~2018 per patient), cirrhosis, depression, and left AKA who presents from OSH with SOA and acute respiratory distress. Pt was admitted on 02/01 at OSH ICU for suspected pneumonia and being treated with Azithromycin and Rocephin but left AMA yesterday 02/02. Overnight his SOA worsened at which point he went to OSH ED and was then transferred to ED. Per conversation with cardiology and review of their documentation, patient was recently evaluated at outside hospital and diagnosed with AHRF in setting of bilateral pneumonia. He was treated on BiPAP in their ICU. He was also diagnosed with NSTEMI with troponin's trending from 200>900. Patientleft AMA prior to being transferred to PCI-capable facility. He later returned to OSH with shortness of breath and was transferred to . At ED, pt had GCS 15 and was saturating poorly at around 91% on high flow NC and was transitioned to BiPAP. From BiPAP he was switched to high flow NC 25 L, currently on 6 L. CTPE showed bilateraleffusions and diffuse bilateral reticular opacities concerning for pneumonia. Workup showed WBC 17.9, Serum Cr 3.61, K 6.1, BNP 67,730, Troponin 218. VBG 7.26/54/29/24. Pt was given Vanc, Rocephin, and ativan. On evaluation by medicine, pt reports pleuritic chest pain. He also describes chest pain of 3 months duration localized to his central chest area, does not radiate, and worse when he swallows. Also reports difficulty swallowing both solids and liquids, coughs up food at times, and associated nausea. Does not have difficulty with BM. Old medical records reviewed. Cr three days ago was within normal limits. Past 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 Past 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: Diagnosis [...] OF STENT N/A Cath Stent Placement from [facility] CHOLECYSTECTOMY N/A Cholecystectomy from [facility] I have reviewed this patient's past surgical history Family History Family History Problem Relation Name Age of Onset Diabetes Mother Hypertension Mother Hypertension Father Other cancer Father Obesity Mother Conversions - Other Mother Heart trouble Conversions - Other Father Heart trouble Hyperlipidemia Father Social History Social History Tobacco Use Smoking status: Every Day Types: Cigarettes Smokeless tobacco: Never Vaping Use Vaping Use: Never used Substance Use Topics Alcohol use: No Drug use: Never Comment: Drug use: No drug use Smoked 1 packs per day for 20 years Travel History Travel Screening Question Response Have you been in contact with someone who was sick? No / Unsure Do you have any of the following new or worsening symptoms? None of these Have you traveled internationally or domestically in the last month? No Travel History Travel since 01/03/23 No documented travel since 01/03/23 Immunizations Immunization History Administered Date(s) Administered Influenza, injectable, quadrivalent, preservative free 03/08/2020 [place] COVID-19 Vaccine (Blue Cap) 18+ 08/10/2020 Allergies Penicillins Home Medications Current Outpatient Medications Medication Instructions amLODIPine (NORVASC) 10 mg, Oral, Daily atorvastatin (LIPITOR) 40 mg, Oral, Daily carvedilol (COREG) 6.25 mg, Oral, 2 times daily cloNIDine (CATAPRES) 0.2 mg, Oral, 2 times daily clopidogrel (PLAVIX) 75 mg, Oral, Daily entecavir (BARACLUDE) 0.5 mg, Oral, Daily gabapentin (NEURONTIN) 600 mg, Oral, 3 times daily hydroCHLOROthiazide (HYDRODIURIL) 25 mg, Oral, Daily Levemir 50 Units, Subcutaneous, Daily losartan (COZAAR) 50 mg, Oral, 2 times daily nitroglycerin (NITROSTAT) 0.4 mg, Sublingual, Every 5 min PRN NovoLOG FlexPen ReliOn 20 Units, Subcutaneous, 3 times daily Review of Systems Review of Systems Constitutional: Positive for chills. Negative for fever. Respiratory: Positive for cough and shortness of breath. Cardiovascular: Positive for chest pain and leg swelling. Gastrointestinal: Positive for nausea. Negative for abdominal pain, constipation and diarrhea. Genitourinary: Negative for difficulty urinating. Skin: Positive for rash. Objective Last Recorded Vitals Blood pressure (!) 144/86, pulse 84, temperature 36.8 ??C (98.3 ??F), temperature source Oral, resp. rate 21, height 1.753 m (5' 9 ), weight 97.2 kg (214 lb 4.6 oz), SpO2 94 %. Physical Exam Constitutional: General: He is in acute distress. Appearance: He is ill-appearing. HENT: Head: Normocephalic and atraumatic. Right Ear: External ear normal. Left Ear: External ear normal. Cardiovascular: Rate and Rhythm: Normal rate and regular rhythm. Comments: RLE with diminished DP and PT pulses Pulmonary: Effort: Respiratory distress present. Breath sounds: Examination of the right-middle field reveals rales. Examination of the left-middle field reveals rales. Examination of the right-lower field reveals rales. Examination of the left-lower field reveals rales. Rales present. Abdominal: General: There is no distension. Palpations: Abdomen is soft. Tenderness: There is no abdominal tenderness. Musculoskeletal: Right lower le+ Pitting Edema present. Skin: General: Skin is warm. Comments: Desquamating rash on RLE with multiple sores and thickened yellow great toenail Neurological: General: No focal deficit present. Mental Status: He is oriented to person, place, and time. Psychiatric: Mood and Affect: Mood normal. Behavior: Behavior normal. Data Labs in last 18 hours CBC WBC 17.93 (H) Hb 12.9 (L) Plt 249 Hct 41.0 ANC 16.39 (H) INR ??, PTT ??, Anti-Xa ?? BMP Na 135 (L) Cl 102 BUN 70 (H) Glu 227 (H) K 6.1 (H) Co2 21 (L) Cr 3.61 (H) Ca 8.4 (L) iCa 4.3 (L) Mg 2.3, Phos 5.3 (H) Lactate ?? LFT AST 43 AlkPhos 137 (H) T Prot 7.1 ALK 19 Bili 0.3 Alb ?? D.Bili ?? IMAGING (past 24h): CXR reviewed by me: cardiomegaly, bilateral small pleural effusions, pulmonary vascular congestion consistent with volume overload CT pulmonary angiography: No pulmonary embolism. Diffuse pulmonary edema/pneumonia as described above. Small bilateral pleural fluid collections. Several intermediate size lymph nodes in the mediastinum are most likely reactive. Mild cardiomegaly. Calcifications in the coronary arteries. Assessment/Plan Assessment/ Plan Principal Problem: Acute respiratory failure with hypoxia (CMS/HCC) Robert Hurley is a 57 y.o. male with PMH as per above who presents with acute worsening of SOA with elevated cardiac markers (BNP and Troponin) in setting of HFrEF exacerbation and recent treatment of CAP. #Acute Hypoxic Respiratory Failure iso HFrEF exacerbation vs CAP #NSTEMI, concern for Type I PMHx, symptoms, and labs consistent with either HFrEF exacerbation (more likely) and/or pneumonia as cause of respiratory failure. Troponin 218 to 198 at , BNP 67,730 Pt has not been on O2 for 2 years. Completed 3 days of Azithromycin at OSH O2 sat 91% on 40% FiO2 venturi mask S/p 160mg Lasix in ED with good response PLAN -Cardiology consulted, appreciate recommendations -DAPT (Plavix and ASA-81) and Heparin gtt (for total of 48 hours) -Will obtain formal echocardiogram -Will increase Atorvastatin to 80mg for high-intensity dose -IV Diuresis with goal net neg 1-2L/day (will give additional Lasix 160mg) -Continue Rocephin for total course of 7 days (end 02/05) -Restarted home nitroglycerin -O2 goal>88% #KOKO on CKD due to likely cardiorenal syndrome c/b hyperkalemia Serum Cr 3.61 (unknown baseline) S/p IV diuresis in ED with improvement in potassium (6.1 > 5.6) PLAN -Continue IV Diuresis -Recheck potassium AM -Holding other nephrotoxic medications Chronic Management -COPD- PRN Duonebs -HTN: hold amplodipine, carvidelol, HCTZ, losartan -DM2 c/b peripheral neuropathy s/p L AKA: 20 Units basal, Sliding scale insulin; holding gabapentin -HLD: Increased atorvastatin to 80mg -Cirrhosis, CAMACHO vs Chronic Hep B: hold Entecavir, will discuss with pharmacy in AM Fluids: PO DVT Ppx: None Diet: Regular diet 2g Na Code status: Full Code Dispo: Admit to Floor Electronically Signed by: Rosaline Charlette - 02/03/2023 - 12:19 PM I saw and evaluated the patient with the medical student. I discussed the case with the medical student and agree with the findings and plan as documented. I personally performed the Exam and MedicalDecision Making. Gonzalo Velazquez MD Internal Medicine-Pediatrics, PGY-1 [facility] Cosigned by Cary Restrepo MD at 02/07/2023 3:37 PM EST Associated attestation - Cary Restrepo MD - 02/07/2023 3:37 PM EST I saw and evaluated the patient with the medical student and resident/fellow. I discussed the case with the medical student and resident/fellow and agree with the findings and plan as documented and participated in the medical decision making. * Consults - Gonzlao Fairchild APRN - 02/03/2023 8:51 AM ESTAssociated Order(s): Consult to MICU Consult to MICU Consult performed by: Gonzalo Fairchild APRN Consult ordered by: Niko Rodriguez MD Reason for consult: acute hypoxic respiratory failure Chief Complaint Chief Complaint Patient presents with Shortness of Breath History Of Present Illness Robert Hurley is a 57 yoM with PMH COPD, HTN, HFrEF, T2DM, HLD, CAD s/p stents, [place], CAMACHO cirrhosis, depression, and left AKA who presented to [facility] this morning for shortness of breath and acute respiratory distress. His troponin was noted to be 900 (up from 200 from 02/01). He received Rocephin and Azithromycin and was transferred to ED via EMS on bipap. Of note, patient was hospitalized Thursday 02/01 at [facility]SH ICU for suspected pneumonia, however left AMA yesterday (02/02). Patient stated that he left because he was feeling better, but returned when he could not lie down without feeling short of breath. On arrival to ED, patient GCS 15 and he was hemodynamically stable. He was transitioned from bipap to HFNC 25L, 60%. On exam, he denies chest pain. He was noted to have bilateral rhonchi. Significant workup demonstrated: WBC 17.9k, Scr 3.61, K 6.1, BNP 67,730. Initial troponin 218 VBG 7.26/54/29/24. CT PE demonstrated bilateral pleural effusions (right greater than left) and bilateral infiltrates concerning for pneumonia. Bedside POCUS demonstrated moderately decreased LVEF. He was given Vanc and Rocephin. Patient was given 80 mg lasix, 1 mg ativan and placed back on Bipap. MICU was consulted for ICU admission. 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 HR 90, BP 120's/70. He states he has had productive cough, no fevers or chills. CT PE negative for PE. Past 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 He has a past medical history of Personal history of other diseases of the circulatory system, Personal history of other diseases of the circulatory system, Personal history of other diseases of the digestive system, Personal history of other diseases of the musculoskeletal system and connective tissue, Personal history of other diseases of the nervous system and sense organs, Personal history ofother diseases of the respiratory system, Personal history of other diseases of the respiratory system, and Personal history of other mental and behavioral disorders. Surgical History He has a past surgical history that includes Cholecystectomy (N/A) and cath stent placement/ cath placement of stent (N/A). Family History Family History Problem Relation Name Age of Onset Diabetes Mother Hypertension Mother Hypertension Father Other cancer Father Obesity Mother Conversions - Other Mother Heart trouble Conversions - Other Father Heart trouble Hyperlipidemia Father Social History He reports that he has been smoking cigarettes. He has never used smokeless tobacco. He reports that he does not drink alcohol and does not use drugs. Review of Systems Complete 14 Point Review of Systems is negative except for aforementioned in HPI. Physical Exam GENERAL: chronically ill appearing male lying in bed. No acute distress on BIPAP EYES: PERRL; anicteric sclerae; moist conjunctivae; no nystagmus or lid-lag HENT: Atraumatic, oropharynx clear, moist mucous membranes, no mucosal ulcerations, normal hard andsoft palate, NECK: Trachea midline, supple neck, no thyromegaly or lymphadenopathy RESP: Airway patent, good air movement, respirations non-labored, breath sounds with course rhonchithroughout lung pandey, no wheezing CARD: RRR; no murmur, rubs, or gallop TELE: Normal sinus rhythm Extremities: +2 edema, no cyanosis or clubbing; pulses palpable +2 GI: No organomegaly or masses; abdomen is soft, nontender and nondistended; bowel sounds present x 4 quadrants SKIN: Normal temperature, turgor and texture; no rashes, ulcers or subcutaneous nodules : Voids NEURO: Awake and following commands, moves all extremities, no focal deficits Physical Exam Last Recorded Vitals Blood pressure 121/79, pulse 85, temperature 36.4 ??C (97.5 ??F), temperature source Oral, resp. rate 26, height 1.753 m (5' 9 ), weight 97.2 kg (214 lb 4.6 oz), SpO2 98 %. Imaging: CT Angio Pulmonary Embolism Result Date: 02/03/2023 Impression: No pulmonary embolism. Diffuse pulmonary edema/pneumonia as described above. Small bilateral pleural fluid collections. Several intermediate size lymph nodes in the mediastinum are most likely reactive. Mild cardiomegaly. Calcifications in the coronary arteries. CRITICAL RESULT: No. COMMUNICATION: Per this written report. Drafted by Tess Connelly MD on 02/03/2023 8:49 AM Final report signed by Tess Connelly MD on 02/03/2023 8:59 AM Assessment/Plan Robert Hurley is a 57 yoM with PMH COPD, HTN, HFrEF, T2DM, HLD, CAD s/p stents, TX, CAMACHO cirrhosis, depression, and left AKA who presented to [facility] this morning for shortness of breath and acute respiratory distress. MICU consulted for further evaluation and management. Acute hypoxic respiratory failure requiring HFNC/NIPPV (POA) Volume Overload (POA) CHF (POA) Pulmonary Edema (POA) Bilateral Pleural Effusions (POA) CAP (POA) Suspected NSTEMI (POA) Concern for KOKO/ATN (POA) Hyperkalemia (POA) Uremia (POA) - Agree with short term NIPPV for volume overload and hypoxic respiratory failure, then transition to HFNC as tolerated - Recommend wean FIO2 for SPO2 > 88% - Completed 3 days of Azithro at OSH; Recommend continuing Rocephin 2gm IV for total of 5 days therapy - Recommend Lasix 160mg IV (given in ED) for goal of NN 1 liter/day - Recommend complete infectious workup - Recommend formal ECHO - Recommend trend Troponin; Patient denies CP; ST wave abnormality on EKG; Consider cardiology consult - Recommend UA - Recommend repeat serum potassium level post lasix; treat per protocol At this time patient does not meet criteria for admission to the MICU. Please feel free to reconsult if patient declines or shows signs of further deterioration. Thank you for the opportunity to participate in the care of this patient. Case discussed with Pulmonary Critical Care Attending, Dr. Jael Chinchilla. Cosigned by Jael Chinchilla MD at 02/03/2023 5:17 PM EST * Hospital Course - Josh Mcmanus MD - 02/03/2023 8:43 AM EST * ED Procedure Note - Robby Hairston DO - 02/03/2023 6:29 AM ESTAssociated Order(s): POC Ultrasound - Bedside Procedure Reason: SOB POC Ultrasound - Bedside Performed by: Robby Hairston DO Authorized by: Don Jeffries MD Procedure specific details: Limited Cardiac Ultrasound A focused ultrasound of the heart was performed to evaluate for pericardial effusion, tamponade, severe hypovolemia, or gross abnormalities of cardiac anatomy or function in this patient. The ultrasound was performed with the following indications, as noted in the H&P: Dyspnea and Hypoxia Identified structures: The pericardial sac, myocardium, and 4 chambers were identified using the following views: Subxiphoid, Parasternal long axis, Parasternal short axis, and Apical 4 chamber Findings Exam of the above structures revealed the following findings: Pericardial Effusion: Absent Pericardial tamponade: absent Visual estimation of LV function: Moderately depressed Visual estimation of RV size: less than 1:1 RV/LV ratio Other: Impression: Diminished LV function The images were Saved in both Qpath - E and PACS. The study was technically adequate. Comments: Global hypokinesis of the left ventricle, decreased squeeze and decreased mitral valve migration Robby Hairston DO Resident 02/03/23 0717 Cosigned by Don Jeffries MD at 02/04/2023 5:19 PM EST Associated attestation - Don Jeffries MD - 02/04/2023 5:19 PM EST I saw and evaluated the patient with the resident/fellow. I discussed the case with the resident/fellow and agree with the findings and plan as documented. I was present during the critical and padilla portions of the procedure and immediately available to furnish services the entire duration. See resident note for details. * ED Provider Notes - Robby Hairston DO - 02/03/2023 6:29 AM EST Images from the original note were not included. - HPI Chief Complaint Patient presents with Shortness of Breath Patient is a 57-year-old male past medical history CHF, COPD, diabetes, hypertension, hyperlipidemia presenting for evaluation of shortness of breath from outside hospital. Patient reportedly had left AMA from the ICU at the outside hospital. Patient was being treated with Rocephin and azithromycinfor suspected pneumonia. Patient was thought to have an NSTEMI due to elevated troponins over 900 at outside hospital. Patient not describing any chest pain on initial examination, patient is GCS 15,in mild respiratory distress on arrival. Patient around 1 BiPAP. Patient's initial blood pressure normotensive, initial heart rate in the 80s to 90s. Patient was taken off of oxygen therapy and desatt ed to 86. Patient was started on high-flow nasal cannula and responded well to this therapy. Patient describes shortness started within the last several days, patient describes he is had fevers and chills at home, cough started 3 days ago. Mariela Coma Scale Score: 15 Patient History [...] OF STENT N/A Cath Stent Placement from [facility] CHOLECYSTECTOMY N/A Cholecystectomy from [facility] Family History Problem Relation Name Age of [...] Review of Systems Review of Systems Constitutional: Positive for chills and fever. HENT: Negative for ear pain and sore throat. Eyes: Negative for pain and visual disturbance. Respiratory: Positive for cough and shortness of breath. Cardiovascular: Positive for leg swelling. Negative for chest pain and palpitations. Gastrointestinal: Negative for abdominal pain and vomiting. Genitourinary: Negative for dysuria and hematuria. Musculoskeletal: Negative for arthralgias and back pain. Skin: Negative for color change and rash. Neurological: Negative for seizures and syncope. All other systems reviewed and are negative. Physical Exam ED Triage Vitals Temp Heart Rate Resp BP 02/03/2341 02/03/2363602/03/2363602/03/23640 36.4 ??C (97.5 ??F) 85 24 (!) 137/97 SpO2 Temp Source Heart Rate Source Patient Position 02/03/2337 02/03/2364002/03/2363602/03/23640 91 % Oral Monitor Sitting BP Location FiO2 (%) 02/03/2341 02/03/23636 Left arm 50 % Physical Exam Vitals and nursing note reviewed. Constitutional: General: He is not in acute distress. Appearance: He is well-developed. HENT: Head: Normocephalic and atraumatic. Mouth/Throat: Mouth: Mucous membranes are moist. Pharynx: Oropharynx is clear. Eyes: Extraocular Movements: Extraocular movements intact. Conjunctiva/sclera: Conjunctivae normal. Pupils: Pupils are equal, round, and reactive to light. Cardiovascular: Rate and Rhythm: Normal rate and regular rhythm. Heart sounds: No murmur heard. Pulmonary: Effort: Pulmonary effort is normal. Tachypnea present. No respiratory distress. Breath sounds: Examination of the right-upper field reveals wheezing and rhonchi. Examination of the left-upper field reveals wheezing and rhonchi. Examination of the right-middle field reveals wheezing and rhonchi. Examination of the left-middle field reveals wheezing and rhonchi. Wheezing and rhonchi present. Abdominal: Palpations: Abdomen is soft. Tenderness: There is no abdominal tenderness. Musculoskeletal: General: No swelling. Normal range of motion. Cervical back: Normal range of motion and neck supple. Skin: General: Skin is warm and dry. Capillary Refill: Capillary refill takes less than 2 seconds. Coloration: Skin is not cyanotic or pale. Neurological: General: No focal deficit present. Mental Status: He is alert and oriented to person, place, and time. Cranial Nerves: No cranial nerve deficit. Motor: No weakness. Psychiatric: Mood and Affect: Mood normal. Behavior: Behavior normal. ED Course & MDM ED Course as of 02/03/23 1224 WedFeb 03, 2023 0728 WBC(!): 17.93 [AT] 0728 CT Angio Pulmonary Embolism Diffuse infiltrate, bilateral pleural effusions [AT] 1202 Troponin T, High Sensitivity, 2 Hour, Plasma(!) Cards to eval [AT] ED Course User Index [AT] Robby Hairston DO Clinical Impressions as of 02/03/23 1224 Shortness of breath - Medical Decision Making Patient was seen and examined with Dr. Jeffries. In summary, this is a 57 y.o. old male presenting to the ED for evaluation of shortness of breath. Patient was hemodynamically stable throughout the entire stay in the emergency department. Based on the history and physical examination differential diagnosis includes but is not limited to COPD exacerbation, heart failure exacerbation, pneumonia, PE, NSTEMI versus STEMI, arrhythmia, pericarditis, pericardial effusion, pneumothorax, pleural effusion. As such it was felt that the patient should undergo CBC, CMP, BNP, EKG, tropes, COVID flu RSV, nasopharyngeal panel, VBG. Labs were significant for elevated white count 18, elevated troponins to 200 significant delta of 20, COVID flu RSV negative, nasopharyngeal panel negative, VBG mildly acidotic. Patient was placed on high-flow nasal cannula was saturating in the 90s. Patient is still having increased tachypnea, was transition to BIPAP with small amount of anxiolysis which the patient tolerated well. Patient was diuresed well 160 mg of IV Lasix. Good response to Lasix. Patient was re-assessed by MICU 2 hours, thought to be for appropriate. Hospital Medicine was consulted and recommended cardiology consultation for elevated troponins and possible NSTEMI. Differential heart failure exacerbation versus COPD exacerbation versus pneumonia versus NSTEMI At this time it was felt that the patient should be evaluated by MICU, Hospital Medicine, Cardiology for possible admission. After consultation and evaluation, Hospital Medicine assumed primary responsibility for patient care and agreed to admit the patient to their service. ED Prescriptions None Disposition Admit Admitting/Attending Physician: CARY RESTREPO [[id number]] Provider Care Team: SABINA SULTANA 4 [[id number]] Are they the primary team?: Yes [1] Sign Off Checklist Clinical Impression: Complete ED Disposition: Complete - Robby Hairston DO Resident 02/03/23 1224 Cosigned by Don Jeffries MD at 02/04/2023 5:11 PM EST Associated attestation - Don Jeffries MD - 02/04/2023 5:11 PM EST I saw and evaluated the patient with the resident/fellow. I discussed the case with the resident/fellow and agree with the findings and plan as documented. * ED Triage Notes - Macrina Plata RN - 02/03/2023 6:29 AM EST Pt arrives to ED via EMS from OSH for SOA. Per report pt was recently admitted at hospital for trouble breathing and left AMA. Pt states it got worse over night, he went back. Upon arrival pt was on bipap, pt put on high flow here O2 sat 91%. GCS 15. Hx of T2DM, COPD, CHF, HTN documented in this encounter Plan of Treatment Upcoming Encounters Date Type Department Care Team (Late st Contact Info) Description 03/07/2024 1:40 PM EST Office Visit [facility] [place] [address], [address] [place] [address] Naeem Blunt MD [address] [place] [phone] Scheduled Referrals Name Type Priority Associated Diagnoses Order Schedule Discharge Ambulatory referral to Nephrology Outpatient Referral Routine Acute respiratory failure with hypoxia (CMS/HCC) 1 Occurrences starting 02/12/2023 until 08/12/2024 Discharge Ambulatory referral to NON Home Health Outpatient Referral Routine Acute respiratory failure with hypoxia (CMS/HCC) Ordered: 02/12/2023 documented as of this encounter Procedures Procedure Name Priority Date/Time Associated Diagnosis Comments POCT GLUCOSE METER UNSOLICITED RESULTS Routine 02/12/2023 8:25 AM EST N-TERMINAL PROBNP, PLASMA Add-On 02/12/2023 4:45 AM EST CBC WITH AUTO DIFFERENTIAL Routine 02/12/2023 4:45 AM EST MAGNESIUM, PLASMA Routine 02/12/2023 4:4 5 AM EST COMPREHENSIVE METABOLIC PANEL, PLASMA Routine 02/12/2023 4:45 AM EST POCT GLUCOSE METER UNSOLICITED RESULTS Routine 02/11/2023 7:28 PM EST POCT GLUCOSE METER UNSOLICITED RESULTS Routine 02/11/2023 3:06 PM EST POCT GLUCOSE METER UNSOLICITED RESULTS Routine 02/11/2023 11:19 AM EST POCT GLUCOSE METER UNSOLICITED RESULTS Routine 02/11/2023 7:26 AM EST CBC WITH AUTO DIFFERENTIAL Routine 02/11/2023 3:39 AM EST MAGNESIUM, PLASMA Routine 02/11/2023 3:3 9 AM EST COMPREHENSIVE METABOLIC PANEL, PLASMA Routine 02/11/2023 3:39 AM EST POCT GLUCOSE METER UNSOLICITED RESULTS Routine 02/10/2023 9:00 PM EST POCT GLUCOSE METER UNSOLICITED RESULTS Routine 02/10/2023 6:05 PM EST POCT GLUCOSE METER UNSOLICITED RESULTS Routine 02/10/2023 5:41 PM EST ECHO, ADULT TRANSESOPHAGEAL COMPLETE W/ 3D Routine 02/10/2023 3:28 PM EST POCT GLUCOSE METER UNSOLICITED RESULTS Routine 02/10/2023 8:51 AM EST CBC W/O DIFFERENTIAL Routine 02/10/2023 5:02 AM EST MAGNESIUM, PLASMA Routine 02/10/2023 5:0 2 AM EST COMPREHENSIVE METABOLIC PANEL, PLASMA Routine 02/10/2023 5:02 AM EST POCT GLUCOSE METER UNSOLICITED RESULTS Routine 02/09/2023 8:17 PM EST POCT GLUCOSE METER UNSOLICITED RESULTS Routine 02/09/2023 5:56 PM EST POCT GLUCOSE METER UNSOLICITED RESULTS Routine 02/09/2023 1:07 PM EST POCT GLUCOSE METER UNSOLICITED RESULTS Routine 02/09/2023 8:58 AM EST CBC WITH AUTO DIFFERENTIAL Routine 02/09/2023 5:18 AM EST MAGNESIUM, PLASMA Routine 02/09/2023 5:1 8 AM EST COMPREHENSIVE METABOLIC PANEL, PLASMA Routine 02/09/2023 5:18 AM EST POCT GLUCOSE METER UNSOLICITED RESULTS Routine 02/08/2023 8:28 PM EST POCT GLUCOSE METER UNSOLICITED RESULTS Routine 02/08/2023 5:50 PM EST VAS US RENAL ARTERY DUPLEX Routine 02/08/2023 4:13 PM EST POCT GLUCOSE METER UNSOLICITED RESULTS Routine 02/08/2023 12:26 PM EST UREA NITROGEN, RANDOM URINE Routine 02/08/2023 11:37 AM EST PROTEIN, URINE, RANDOM WITH CREATININE Routine 02/08/2023 11:37 AM EST POCT GLUCOSE METER UNSOLICITED RESULTS Routine 02/08/2023 9:48 AM EST POCT GLUCOSE METER UNSOLICITED RESULTS Routine 02/08/2023 9:06 AM EST CBC WITH AUTO DIFFERENTIAL Routine 02/08/2023 3:04 AM EST MAGNESIUM, PLASMA Routine 02/08/2023 3:0 4 AM EST COMPREHENSIVE METABOLIC PANEL, PLASMA Routine 02/08/2023 3:04 AM EST POCT GLUCOSE METER UNSOLICITED RESULTS Routine 02/07/2023 8:28 PM EST POCT GLUCOSE METER UNSOLICITED RESULTS Routine 02/07/2023 6:11 PM EST POCT GLUCOSE METER UNSOLICITED RESULTS Routine 02/07/2023 1:42 PM EST POCT GLUCOSE METER UNSOLICITED RESULTS Routine 02/07/2023 9:05 AM EST CBC WITH AUTO DIFFERENTIAL Routine 02/07/2023 2:32 AM EST MAGNESIUM, PLASMA Routine 02/07/2023 2:3 2 AM EST COMPREHENSIVE METABOLIC PANEL, PLASMA Routine 02/07/2023 2:32 AM EST POCT GLUCOSE METER UNSOLICITED RESULTS Routine 02/06/2023 8:21 PM EST POCT GLUCOSE METER UNSOLICITED RESULTS Routine 02/06/2023 6:36 PM EST US RENAL COMPLETE Routine 02/06/2023 4:2 8 PM EST POCT GLUCOSE METER UNSOLICITED RESULTS Routine 02/06/2023 1:44 PM EST POCT GLUCOSE METER UNSOLICITED RESULTS Routine 02/06/2023 9:11 AM EST CBC WITH AUTO DIFFERENTIAL Routine 02/06/2023 5:52 AM EST MAGNESIUM, PLASMA Routine 02/06/2023 5:5 2 AM EST COMPREHENSIVE METABOLIC PANEL, PLASMA Routine 02/06/2023 5:52 AM EST POCT GLUCOSE METER UNSOLICITED RESULTS Routine 02/05/2023 8:41 PM EST POCT GLUCOSE METER UNSOLICITED RESULTS Routine 02/05/2023 5:57 PM EST URINALYSIS MICROSCOPIC FOR UA REFLEX Routine 02/05/2023 11:31 AM EST SODIUM, URINE, RANDOM Routine 02/05/2023 11:31 AM EST PROTEIN, URINE, RANDOM WITH CREATININE Routine 02/05/2023 11:31 AM EST URINALYSIS WITH REFLEX MICROSCOPIC Routine 02/05/2023 11:31 AM EST POCT GLUCOSE METER UNSOLICITED RESULTS Routine 02/05/2023 11:21 AM EST OXYGEN THERAPY Routine 02/05/2023 8:00 AM EST POCT GLUCOSE METER UNSOLICITED RESULTS Routine 02/05/2023 7:33 AM EST ANTI XA LEVEL UNFRACTIONATED HEPARIN STAT 02/05/2023 5:20 AM EST CBC W/O DIFFERENTIAL Routine 02/05/2023 5:20 AM EST PHOSPHORUS, PLASMA Routine 02/05/2023 5: 20 AM EST MAGNESIUM, PLASMA Routine 02/05/2023 5:2 0 AM EST BASIC METABOLIC PANEL, PLASMA Routine 02/05/2023 5:20 AM EST POCT GLUCOSE METER UNSOLICITED RESULTS Routine 02/05/2023 3:31 AM EST POCT GLUCOSE METER UNSOLICITED RESULTS Routine 02/05/2023 3:11 AM EST BLOOD CULTURE (AEROBIC/ANAEROBIC SET) Routine 02/04/2023 9:59 PM EST ANTI XA LEVEL UNFRACTIONATED HEPARIN STAT 02/04/2023 9:59 PM EST BLOOD CULTURE (AEROBIC/ANAEROBIC SET) Routine 02/04/2023 8:06 PM EST OXYGEN THERAPY Routine 02/04/2023 8:00 PM EST ECG ADULT STAT 02/04/2023 7:50 PM EST POCT GLUCOSE METER UNSOLICITED RESULTS Routine 02/04/2023 7:48 PM EST POCT GLUCOSE METER UNSOLICITED RESULTS Routine 02/04/2023 5:58 PM EST POCT GLUCOSE METER UNSOLICITED RESULTS Routine 02/04/2023 3:58 PM EST ANTI XA LEVEL UNFRACTIONATED HEPARIN STAT 02/04/2023 3:46 PM EST POCT GLUCOSE METER UNSOLICITED RESULTS Routine 02/04/2023 1:02 PM EST ECHO, ADULT TRANSTHORACIC COMPLETE W/ CONTRAST STAT 02/04/2023 12:05 PM EST POCT GLUCOSE METER UNSOLICITED RESULTS Routine 02/04/2023 11:26 AM EST ECG ADULT STAT 02/04/2023 9:58 AM EST PROTHROMBIN TIME(PT) / INR STAT 02/04/2023 8:48 AM EST ANTI XA LEVEL UNFRACTIONATED HEPARIN STAT 02/04/2023 8:48 AM EST OXYGEN THERAPY Routine 02/04/2023 8:00 AM EST POCT GLUCOSE METER UNSOLICITED RESULTS Routine 02/04/2023 7:48 AM EST XR CHEST 1 VIEW Routine 02/04/2023 6:29 AM EST CBC W/O DIFFERENTIAL Routine 02/04/2023 2:53 AM EST MAGNESIUM, PLASMA Routine 02/04/2023 2:5 3 AM EST RENAL FUNCTION PANEL, PLASMA Routine 02/04/2023 2:53 AM EST OXYGEN THERAPY Routine 02/04/2023 2:14 AM EST OXYGEN THERAPY Routine 02/04/2023 2:14 AM EST OXYGEN THERAPY Routine 02/04/2023 2:14 AM EST POCT GLUCOSE METER UNSOLICITED RESULTS Routine 02/04/2023 12:16 AM EST EXTRA TUBE LIGHT BLUE TOP Routine 02/03/2023 11:28 PM EST EXTRA TUBES Routine 02/03/2023 11:28 PM EST ANTI XA LEVEL UNFRACTIONATED HEPARIN STAT 02/03/2023 11:28 PM EST BLOOD GAS PANEL, VENOUS STAT 02/04/20 11:28 PM EST ANTI XA LEVEL UNFRACTIONATED HEPARIN STAT 02/03/2023 10:45 PM EST POCT GLUCOSE METER UNSOLICITED RESULTS Routine 02/03/2023 8:27 PM EST BLOOD GAS PANEL, VENOUS STAT 02/04/20 7:53 PM EST MAGNESIUM, PLASMA Routine 02/03/2023 7:5 2 PM EST BASIC METABOLIC PANEL, PLASMA Routine 02/03/2023 7:52 PM EST ECG ADULT Routine 02/03/2023 7:44 PM EST NON-INVASIVE VENTILATION Routine 02/03/2023 6:52 PM EST ECG ADULT Routine 02/03/2023 6:35 PM EST CBC W/O DIFFERENTIAL STAT 02/03/2023 5:46 PM EST POCT GLUCOSE METER UNSOLICITED RESULTS Routine 02/03/2023 5:01 PM EST PROTHROMBIN TIME(PT) / INR STAT 02/03/2023 4:20 PM EST ANTI XA LEVEL UNFRACTIONATED HEPARIN Timed 02/03/2023 4:20 PM EST POTASSIUM, PLASMA Routine 02/03/2023 2:0 3 PM EST POCT GLUCOSE METER UNSOLICITED RESULTS Routine 02/03/2023 1:54 PM EST BLOOD GAS PANEL, VENOUS STAT 02/04/20 11:23 AM EST TROPONIN T, HIGH SENSITIVITY, 2 HOUR, PLASMA Timed 02/03/2023 8:50 AM EST MULTI DRUG RESISTANCE TEST STAT 02/03/2023 8:17 AM EST NON-INVASIVE VENTILATION Routine 02/03/2023 7:51 AM EST NON-INVASIVE VENTILATION Routine 02/03/2023 7:51 AM EST XR CHEST 1 VIEW STAT 02/03/2023 7:[address] ANGIO PULMONARY EMBOLISM STAT 02/03/2023 7:21 AM EST SARS COV-2/COVID-19 BY PCR - RAPID Routine 02/03/2023 6:59 AM EST NASOPHARYNGEAL RESPIRATORY PANEL STAT 02/03/2023 6:59 AM EST POCT GLUCOSE METER UNSOLICITED RESULTS Routine 02/03/2023 6:58 AM EST ED HIV 1/2 ANTIBODY/ANTIGEN SCREEN WITH REFLEX TO HIV I/II DIFFERENTIATION STAT 02/03/2023 6:48 AM EST ED PROTOCOL HIV 1/2 ANTIBODY/ANTIGEN SCREEN W/REFLEX TO HIV 1/2 ANTIBODY DIFFERENTIATION STAT 02/03/2023 6:48 AM EST TROPONIN T, HIGH SENSITIVITY, 0 HOUR, PLASMA, REFLEX TO 2 HOUR STAT 02/03/2023 6:48 AM EST PROCALCITONIN, PLASMA STAT 02/03/2023 6:48 AM EST HEPATITIS C ANTIBODY - ED W/REFLEX TO HCV QUANT PCR STAT 02/03/2023 6:48 AM EST N-TERMINAL PROBNP, PLASMA STAT 02/03/2023 6:48 AM EST CBC WITH AUTO DIFFERENTIAL STAT 02/03/2023 6:48 AM EST PHOSPHORUS, PLASMA STAT 02/03/2023 6: 48 AM EST MAGNESIUM, PLASMA STAT 02/03/2023 6:4 8 AM EST HEMOGLOBIN A1C STAT 02/03/2023 6:48 AM EST BLOOD GAS PANEL, VENOUS STAT 02/04/20 6:48 AM EST COMPREHENSIVE METABOLIC PANEL, PLASMA STAT 02/03/2023 6:48 AM EST OXYGEN THERAPY Routine 02/03/2023 6:45 AM EST OXYGEN THERAPY Routine 02/03/2023 6:45 AM EST ECG ADULT STAT 02/03/2023 6:42 AM EST [facility] ED POCUS PROCDOC Routine 02/03/2023 6:29 AM EST documented in this encounter Results * (ABNORMAL) POCT glucose meter (02/12/2023 8:25 AM EST) POCT Glucose 158(H) 74 - 99 mg/dL 02/12/2023 8:26 AM EST [facility] Comment:Accuracy of [...] to the main labortory for testing. Comment 02/12/2023 8:26 AM EST [facility]Object LAB Glassworker ID Ashley Rodriguez 8:26 AM EST [facility] Device ID [id number] 02/12/2023 8:26 AM EST [facility]Object LAB Specimen Type POC Capillary 02/12/2023 8:26 AM EST [facility]Object LAB Blood Capillary blood specimen / Unknown 02/12/2023 8:25 AM EST 02/12/2023 8:26 AM EST us Harlan Ricketts MD LAB POINT OF CARE TE ST DOCKED DEVICE UNSOLICITED RESULTS Final Result Performing Organization Address City/[facility]/ZIP Co de Phone Number [facility] [address] [place] [address] * (ABNORMAL) N-Terminal Probnp (02/12/2023 4:45 AM EST) Pathologist [facility] N-Terminal, PROBNP, Plasma 30,350(H) 0 - 899 pg/mL 02/12/2023 8:37 AM EST [facility] Blood Venous blood specimen / Unknown Venipuncture / Unknown 02/12/2023 4:45 AM EST 02/12/2023 5:10 AM EST us Harlan Ricketts MD LAB BLOOD ORDERABLES Final Resu lt [facility] [address] [place] [address] * Magnesium, Plasma (02/12/2023 4:45 AM EST) Pathologist [facility] Magnesium, Plasma 2.2 1.9 - 2.4 mg/dL 02/12/2023 5:42 AM EST [facility] Blood Venous blood specimen / Unknown Venipuncture / Unknown 02/12/2023 4:45 AM EST 02/12/2023 5:10 AM EST us Harlan Ricketts MD LAB BLOOD ORDERABLES Final Resu lt [facility] [address] [place] [address] * (ABNORMAL) Comprehensive Metabolic Panel, Plasma (02/12/2023 4:45 AM EST) Glucose, Plasma 99 74 - 99 mg/dL 02/12/2023 5:42 AM EST [facility] BUN, Plasma 59(H) 7 - 21 mg/dL 02/12/2023 5:42 AM EST [facility] Creatinine, Plasma 3.28(H) 0.80 - 1.30 mg/dL 02/12/2023 5:42 AM EST [facility] BUN/Creatinine Ratio 18 02/12/2023 5:42 AM EST [facility] Sodium, Plasma 143 136 - 145 mmol/L 02/12/2023 5:42 AM EST [facility] Potassium, Plasma 4.4 3.7 - 4.8 mmol/L 02/12/2023 5:42 AM EST [facility] Chloride, Plasma 109(H) 97 - 107 mmol/L 02/12/2023 5:42 AM EST [facility] CO2, Plasma 23 22 - 29 mmol/L 02/12/2023 5:42 AM EST [facility] Anion Gap 11 6 - 16 mmol/L 02/12/2023 5:42 AM EST [facility] Total Calcium, Plasma 9.1 8.9 - 10.2 mg/dL 02/12/2023 5:42 AM EST [facility] Total Protein 6.1(L) 6.3 - 7.9 g/dL 02/12/2023 5:42 AM EST [facility] Albumin, Plasma 3.3(L) 3.5 - 5.2 g/dL 02/12/2023 5:42 AM EST [facility] AST, Plasma 41 10 - 50 U/L 02/12/2023 5:42 AM EST [facility] ALT, Plasma 21 10 - 50 U/L 02/12/2023 5:42 AM EST [facility] Alkaline Phosphatase, Plasma 156(H) 40 - 115 U/L 02/12/2023 5:42 AM EST [facility] Total Bilirubin, Plasma 0.8 0.2 - 1.1 mg/dL 02/12/2023 5:42 AM EST [facility] eGFRcr 21.4 mL/min/1.7 3m*2 02/12/2023 5:42 AM EST [facility] Comment:Reported eGFRcr in m L/min/1.73m2 is based the CKD-EPI 2020 equation that does not use a race coefficient. Blood Venous blood specimen / Unknown Venipuncture / Unknown 02/12/2023 4:45 AM EST 02/12/2023 5:10 AM EST us Harlan Ricketts MD LAB BLOOD ORDERABLES Final Resu lt Performing Organization Address City/State/[facility] Co de Phone Number [facility] [address] [place] [address] * (ABNORMAL) CBC and Differential (02/12/2023 4:45 AM EST) WBC Count 5.20 3.70 - 10.30 10*3/uL LAB HEMATOLOGY METHOD 02/12/2023 6:03 AM EST [facility] RBC Count 3.86(L) 4.60 - 6.10 10*6/uL LAB HEMATOLOGY METHOD 02/12/2023 6:03 AM EST [facility] HGB 11.0(L) 13.7 - 17.5 g/dL LAB HEMATOLOGY METHOD 02/12/2023 6:03 AM EST [facility] HCT 34.2(L) 40.0 - 51.0 % LAB HEMATOLOGY METHOD 02/12/2023 6:03 AM EST [facility] Platelet Count 215 155 - 369 10*3/uL LAB HEMATOLOGY METHOD 02/12/2023 6:03 AM EST [facility] MCV 89 79 - 98 fL LAB HEMATOLOGY METHOD 02/12/2023 6:03 AM EST [facility] MCH 28.5 26.0 - 32.0 pg LAB HEMATOLOGY METHOD 02/12/2023 6:03 AM EST [facility] MCHC 32.2 30.7 - 35.5 g/dL LAB HEMATOLOGY METHOD 02/12/2023 6:03 AM EST [facility] RDW 13.6 11.5 - 14.5 % LAB HEMATOLOGY METHOD 02/12/2023 6:03 AM EST [facility] MPV 11.2 8.8 - 12.5 fL LAB HEMATOLOGY METHOD 02/12/2023 6:03 AM EST [facility] nRBC 0.0 <=0.0 per 100 WBCs LAB HEMATOLOGY METHOD 02/12/2023 6:03 AM EST [facility] Differential Type Automated LAB HEMATOLOGY METHOD 02/12/2023 6:03 AM EST [facility] Neutrophils % 55.0 % LAB HEMATOLOGY METHOD 02/12/2023 6:03 AM EST [facility] Lymphocytes % 32.0 % LAB HEMATOLOGY METHOD 02/12/2023 6:03 AM EST [facility] Monocytes % 11.0 % LAB HEMATOLOGY METHOD 02/12/2023 6:03 AM EST [facility] Eosinophils % 1.0 % LAB HEMATOLOGY METHOD 02/12/2023 6:03 AM EST [facility] Basophils % 0.0 % LAB HEMATOLOGY METHOD 02/12/2023 6:03 AM [facility] Immature Granulocytes % 1.0 % LAB HEMATOLOGY METHOD 02/12/2023 6:03 AM EST [facility] Neutrophils Absolute 2.85 1.60 - 6.10 10*3/uL LAB HEMATOLOGY METHOD 02/12/2023 6:03 AM EST [facility] Lymphocytes Absolute 1.68 1.20 - 3.90 10*3/uL LAB HEMATOLOGY METHOD 02/12/2023 6:03 AM EST [facility] Monocytes Absolute 0.55 0.30 - 0.90 10*3/uL LAB HEMATOLOGY METHOD 02/12/2023 6:03 AM EST [facility] Eosinophils Absolute 0.07 0.00 - 0.50 10*3/uL LAB HEMATOLOGY METHOD 02/12/2023 6:03 AM EST [facility] Basophils Absolute 0.02 0.00 - 0.10 10*3/uL LAB HEMATOLOGY METHOD 02/12/2023 6:03 AM [facility] Immature Granulocytes Absolute 0.03 0.00 - 0.06 10*3/uL LAB HEMATOLOGY METHOD 02/12/2023 6:03 AM EST [facility] Blood Venous blood specimen / Unknown Venipuncture / Unknown 02/12/2023 4:45 AM EST 02/12/2023 5:13 AM EST Narrative [facility] - 02/12/2023 6:03 AM EST Therapeutic decision making should be based on absolute values, rather than percentages. us Harlan Ricketts MD LAB BLOOD ORDERABLES Final Resu lt Performing Organization Address [facility] Co de Phone Number [facility] [address] [place] [address] * (ABNORMAL) POCT glucose meter (02/11/2023 7:28 PM EST) POCT Glucose 152(H) 74 - 99 mg/dL 02/11/2023 8:08 PM EST [facility] Comment:Accuracy of a glucos e result obtained from a capillary whole blood specimen relies upon adequate, non-compromised capillary blood flow. If the capillary glucose result is not consistent with the patient's clinical signs and symptoms, glucose testing should be repeated with either an arterial or venous sample on the glucometer or sent to the main labortory for testing. Comment 02/11/2023 8:08 PM EST [facility] Glassworker ID Khari Hong 02/11/2023 8:08 PM EST [facility] Device ID [id number] 02/11/2023 8:08 PM EST [facility] Specimen Type POC Capillary 02/11/2023 8:08 PM EST [facility] Blood Capillary blood specimen / Unknown 02/11/2023 7:28 PM EST 02/11/2023 8:08 PM EST us Harlan Ricketts MD LAB POINT OF CARE TE ST DOCKED DEVICE UNSOLICITED RESULTS Final Result Performing Organization Address [facility] Co de Phone Number [facility] [address] [place] [address] * (ABNORMAL) POCT glucose meter (02/11/2023 3:06 PM EST) POCT Glucose 116(H) 74 - 99 mg/dL 02/11/2023 3:07 PM EST [facility] Comment:Accuracy of [...] to the main labortory for testing. Comment 02/11/2023 3:07 PM EST [facility] Glassworker ID Vikram Ott 02/11/2023 3:07 PM EST [facility] Device ID [id number] 02/11/2023 3:07 PM EST [facility] Specimen Type POC Capillary 02/11/2023 3:07 PM EST [facility] Blood Capillary blood specimen / Unknown 02/11/2023 3:06 PM EST 02/11/2023 3:07 PM EST us Harlan Ricketts MD LAB POINT OF CARE TE ST DOCKED DEVICE UNSOLICITED RESULTS Final Result Performing Organization Address City/[facility] Co de Phone Number [facility] [address] [place] [address] * (ABNORMAL) POCT glucose meter (02/11/2023 11:19 AM EST) [facility] POCT Glucose 111(H) 74 - 99 mg/dL 02/11/2023 11:20 AM EST [facility] Comment:Accuracy of [...] to the main labortory for testing. Comment 02/11/2023 11:20 AM EST [facility] Glassworker ID Vikram Ott 02/11/2023 11:20 AM EST [facility] Device ID [id number] 02/11/2023 11:20 AM EST [facility] Specimen Type POC Capillary 02/11/2023 11:20 AM EST [facility] Blood Capillary blood specimen / Unknown 02/11/2023 11:19 AM EST 02/11/2023 11:20 AM EST us Harlan Ricketts MD LAB POINT OF CARE TE ST DOCKED DEVICE UNSOLICITED RESULTS Final Result Performing Organization Address City/[facility]/ZIP Co de Phone Number [facility] [address] [place] [address] * (ABNORMAL) POCT glucose meter (02/11/2023 7:26 AM EST) [facility] POCT Glucose 127(H) 74 - 99 mg/dL 02/11/2023 7:28 AM EST [facility] Comment:Accuracy of a glucos e result obtained from a capillary whole blood specimen relies upon adequate, non-compromised capillary blood flow. If the capillary glucose result is not consistent with the patient's clinical signs and symptoms, glucose testing should be repeated with either an arterial or venous sample on the glucometer or sent to the main labortory for testing. Comment 02/11/2023 7:28 AM EST [facility] Glassworker ID Vikram Ott 02/11/2023 7:28 AM EST [facility] Device ID [id number] 02/11/2023 7:28 AM EST setObject LAB Specimen Type POC Capillary 02/11/2023 7:28 AM EST [facility] Blood Capillary blood specimen / Unknown 02/11/2023 7:26 AM EST 02/11/2023 7:28 AM EST us Harlan Ricketts MD LAB POINT OF CARE TE ST DOCKED DEVICE UNSOLICITED RESULTS Final Result [facility] [address] [place] [address] * Magnesium, Plasma (02/11/2023 3:39 AM EST) [facility] Magnesium, Plasma 2.3 1.9 - 2.4 mg/dL 02/11/2023 4:20 AM EST [facility] Blood Venous blood specimen / Unknown Venipuncture / Unknown 02/11/2023 3:39 AM EST 02/11/2023 3:49 AM EST us Harlan Ricketts MD LAB BLOOD ORDERABLES Final Resu lt [facility] [address] [place] [address] * (ABNORMAL) CBC and Differential (02/11/2023 3:39 AM EST) [facility] WBC Count 5.96 3.70 - 10.30 10*3/uL LAB HEMATOLOGY METHOD 02/11/2023 3:59 AM EST [facility] RBC Count 4.08(L) 4.60 - 6.10 10*6/uL LAB HEMATOLOGY METHOD 02/11/2023 3:59 AM EST [facility] HGB 11.9(L) 13.7 - 17.5 g/dL LAB HEMATOLOGY METHOD 02/11/2023 3:59 AM EST [facility] HCT 36.3(L) 40.0 - 51.0 % LAB HEMATOLOGY METHOD 02/11/2023 3:59 AM EST [facility] Platelet Count 247 155 - 369 10*3/uL LAB HEMATOLOGY METHOD 02/11/2023 3:59 AM EST [facility] MCV 89 79 - 98 fL LAB HEMATOLOGY METHOD 02/11/2023 3:59 AM EST [facility] MCH 29.2 26.0 - 32.0 pg LAB HEMATOLOGY METHOD 02/11/2023 3:59 AM EST [facility] MCHC 32.8 30.7 - 35.5 g/dL LAB HEMATOLOGY METHOD 02/11/2023 3:59 AM EST [facility] RDW 13.5 11.5 - 14.5 % LAB HEMATOLOGY METHOD 02/11/2023 3:59 AM EST [facility] MPV 11.1 8.8 - 12.5 fL LAB HEMATOLOGY METHOD 02/11/2023 3:59 AM EST [facility] nRBC 0.0 <=0.0 per 100 WBCs LAB HEMATOLOGY METHOD 02/11/2023 3:59 AM EST [facility] Differential Type Automated LAB HEMATOLOGY METHOD 02/11/2023 3:59 AM EST [facility] Neutrophils % 55.0 % LAB HEMATOLOGY METHOD 02/11/2023 3:59 AM EST [facility] Lymphocytes % 31.0 % LAB HEMATOLOGY METHOD 02/11/2023 3:59 AM EST [facility] Monocytes % 11.0 % LAB HEMATOLOGY METHOD 02/11/2023 3:59 AM EST [facility] Eosinophils % 2.0 % LAB HEMATOLOGY METHOD 02/11/2023 3:59 AM EST [facility] Basophils % 0.0 % LAB HEMATOLOGY METHOD 02/11/2023 3:59 AM EST [facility] Immature Granulocytes % 1.0 % LAB HEMATOLOGY METHOD 02/11/2023 3:59 AM EST [facility] Neutrophils Absolute 3.32 1.60 - 6.10 10*3/uL LAB HEMATOLOGY METHOD 02/11/2023 3:59 AM EST [facility] Lymphocytes Absolute 1.85 1.20 - 3.90 10*3/uL LAB HEMATOLOGY METHOD 02/11/2023 3:59 AM EST [facility] Monocytes Absolute 0.65 0.30 - 0.90 10*3/uL LAB HEMATOLOGY METHOD 02/11/2023 3:59 AM EST [facility] Eosinophils Absolute 0.09 0.00 - 0.50 10*3/uL LAB HEMATOLOGY METHOD 02/11/2023 3:59 AM EST [facility] Basophils Absolute 0.02 0.00 - 0.10 10*3/uL LAB HEMATOLOGY METHOD 02/11/2023 3:59 AM EST [facility] Immature Granulocytes Absolute 0.03 0.00 - 0.06 10*3/uL LAB HEMATOLOGY METHOD 02/11/2023 3:59 AM EST [facility] Blood Venous blood specimen / Unknown Venipuncture / Unknown 02/11/2023 3:39 AM EST 02/11/2023 3:51 AM EST Narrative [facility] - 02/11/2023 3:59 AM EST Therapeutic decision making should be based on absolute values, rather than percentages. us Harlan Ricketts MD LAB BLOOD ORDERABLES Final Resu lt [facility] [address] [place] [id number] * (ABNORMAL) Comprehensive Metabolic Panel, Plasma (02/11/2023 3:39 AM EST) Glucose, Plasma 156(H) 74 - 99 mg/dL 02/11/2023 4:20 AM EST [facility] BUN, Plasma 59(H) 7 - 21 mg/dL 02/11/2023 4:20 AM EST [facility] Creatinine, Plasma 3.19(H) 0.80 - 1.30 mg/dL 02/11/2023 4:20 AM EST [facility] BUN/Creatinine Ratio 18 02/11/2023 4:20 AM EST [facility] Sodium, Plasma 142 136 - 145 mmol/L 02/11/2023 4:20 AM EST [facility] Potassium, Plasma 4.5 3.7 - 4.8 mmol/L 02/11/2023 4:20 AM EST [facility] Chloride, Plasma 105 97 - 107 mmol/L 02/11/2023 4:20 AM EST [facility] CO2, Plasma 23 22 - 29 mmol/L 02/11/2023 4:20 AM EST [facility] Anion Gap 14 6 - 16 mmol/L 02/11/2023 4:20 AM EST [facility] Total Calcium, Plasma 9.1 8.9 - 10.2 mg/dL 02/11/2023 4:20 AM EST [facility] Total Protein 6.6 6.3 - 7.9 g/dL 02/11/2023 4:20 AM EST [facility] Albumin, Plasma 3.5 3.5 - 5.2 g/dL 02/11/2023 4:20 AM EST [facility] AST, Plasma 47 10 - 50 U/L 02/11/2023 4:20 AM EST [facility] ALT, Plasma 26 10 - 50 U/L 02/11/2023 4:20 AM EST [facility] Alkaline Phosphatase, Plasma 159(H) 40 - 115 U/L 02/11/2023 4:20 AM EST [facility] Total Bilirubin, Plasma 0.7 0.2 - 1.1 mg/dL 02/11/2023 4:20 AM [facility] eGFRcr 22.1 mL/min/1.7 3m*2 02/11/2023 4:20 AM [facility] Comment:Reported eGFRcr in m L/min/1.73m2 is based the CKD-EPI 2020 equation that does not use a race coefficient. Blood Venous blood specimen / Unknown Venipuncture / Unknown 02/11/2023 3:39 AM EST 02/11/2023 3:49 AM EST us Harlan Ricketts MD LAB BLOOD ORDERABLES Final Resu lt [facility] [address] [place] [address] * (ABNORMAL) POCT glucose meter (02/10/2023 9:00 PM EST) POCT Glucose 183(H) 74 - 99 mg/dL 02/10/2023 9:09 PM EST [facility] Comment:Accuracy of a glucos e result obtained from a capillary whole blood specimen relies upon adequate, non-compromised capillary blood flow. If the capillary glucose result is not consistent with the patient's clinical signs and symptoms, glucose testing should be repeated with either an arterial or venous sample on the glucometer or sent to the main labortory for testing. Comment 02/10/2023 9:09 PM EST [facility] Glassworker ID Khari Hong 02/10/2023 9:09 PM EST [facility] LAB Device ID [id number] 02/10/2023 9:09 PM EST [facility] Specimen Type POC Capillary 02/10/2023 9:09 PM EST [facility] Blood Capillary blood specimen / Unknown 02/10/2023 9:00 PM EST 02/10/2023 9:09 PM EST us Harlan Ricketts MD LAB POINT OF CARE TE ST DOCKED DEVICE UNSOLICITED RESULTS Final Result Performing Organization Address City/State/[facility] de Phone Number [facility] [address] [place] [address] * (ABNORMAL) POCT glucose meter (02/10/2023 6:05 PM EST) [facility] Signature POCT Glucose 151(H) 74 - 99 mg/dL 02/10/2023 6:07 PM EST [facility] LAB Comment:Accuracy of a glucos e result obtained from a capillary whole blood specimen relies upon adequate, non-compromised capillary blood flow. If the capillary glucose result is not consistent with the patient's clinical signs and symptoms, glucose testing should be repeated with either an arterial or venous sample on the glucometer or sent to the main labortory for testing. Comment 02/10/2023 6:07 PM EST [facility] Glassworker ID Vikram Ott 02/10/2023 6:07 PM EST [facility] LAB Device ID [id number] 02/10/2023 6:07 PM EST [facility] Specimen Type POC Capillary 02/10/2023 6:07 PM EST [facility] LAB Blood Capillary blood specimen / Unknown 02/10/2023 6:05 PM EST 02/10/2023 6:07 PM EST us Harlan Ricketts MD LAB POINT OF CARE TE ST DOCKED DEVICE UNSOLICITED RESULTS Final Result Performing Organization Address City/[facility] Co de Phone Number [facility] [address] [place] [address] * (ABNORMAL) POCT glucose meter (02/10/2023 5:41 PM EST) [facility] POCT Glucose 115(H) 74 - 99 mg/dL 02/10/2023 5:42 PM EST [facility] Comment:Accuracy of [...] to the main labortory for testing. Comment 02/10/2023 5:42 PM EST [facility] LAB Glassworker ID Alma Faulkner 023 5:42 PM EST [facility] Device ID [id number] 02/10/2023 5:42 PM EST [facility] LAB Specimen Type POC Capillary 02/10/2023 5:42 PM EST [facility] Blood Capillary blood specimen / Unknown 02/10/2023 5:41 PM EST 02/10/2023 5:42 PM EST Harlan Ricketts MD LAB POINT OF CARE TE ST DOCKED DEVICE UNSOLICITED RESULTS Final Result Performing Organization Address City/[facility] Co de Phone Number [facility] [address] [place] [address] * ECHO, ADULT TRANSESOPHAGEAL COMPLETE W/ 3D (02/10/2023 3:28 PM EST) Pathologist [facility] BSA 2.07 m2 WILLIAM ISCV SBP 115 mmHg WILLIAM ISCV DBP 78 mmHg WILLIAM ISCV Heart Rate 74 WILLIAM ISCV LV V1 VTI 10.8 cm WILLIAM ISCV Ao V2 VTI 35.5 cm [facility]IAM [facility]SC[facility] AV VTI Index 0.30 WILLIAM ISCV TR Max PG 8 mmHG WILLIAM ISCV TR Vmax 143.0 cm/s WILLIAM ISCV LV V1 Vmax 60.9 cm/s WILLIAM [facility]SC[facility] Ao mean PG 10 mmHg WILLIAM ISC[facility] Ao V2 Vmax 216.4 cm/s WILLIAM ISCV Ao max PG 19 mmHg WILLIAM ISCV LV mean PG 0.9 mmHG WILLIAM ISCV LV V1 mean 44.3 cm/sec WILLIAM ISCV LV max PG 1.5 mmHg WILLIAM ISC[facility] Ao V2 mean 149.6 cm/s WILLIAM ISCV Anatomical Region Laterality Modality Echocardiography Narrative 02/10/2023 4:56 PM EST ?Left??Ventricle: The left ventricle is not well visualized, but is grossly normal in size. The left ventricular systolic function is mildly reduced. The LVEF is visually estimated at 40 - 45%. Unable to assess diastolic function. There is global hypokinesis of the left ventricle. ?Left??Atrium: The left atrial size is normal. The left atrial appendage exit velocity is normal at greater than 40 cm/sec. The left atrial appendage was evaluated in multiple views and there is no thrombus seen. Intravenous injection of agitated saline demonstrates no evidence of intracardiac or intrapulmonary shunt. There is no atrial septal defect. Normal flow patterns in the pulmonary veins. ?Mitral??Valve: The mitral valve leaflets are normal in appearance with no evidence of mitral valve prolapse. There is mild mitral regurgitation. There is no mitral stenosis. ?Aortic??Valve: The aortic valve appears to be trileaflet. The left, right and non-coronary cusps are calcified. There is no aortic valve vegetation. There is mild aortic valve regurgitation with a centrally directed jet. There is no hemodynamically significant valvular aortic stenosis. ?Pericardium: No pericardial effusion. ?There is no recent study available for direct [id number] comparison. ?? Left Ventricle The left ventricle is not well visualized, but is grossly normal in size. The left ventricular systolic function is mildly reduced. The LVEF is visually estimated at 40 - 45%. Unable to assess diastolic function. There is global hypokinesis of the left ventricle. Right Ventricle The right ventricle is grossly normal in size. The right ventricular systolic function is grossly normal. Right ventricular systolic pressure is normal (<35mmHg). Left Atrium The left atrial size is normal. The left atrial appendage exit velocity is normal at greater than 40 cm/sec. The left atrial appendage was evaluated in multiple views and there is no thrombus seen. Intravenous injection of agitated saline demonstrates no evidence of intracardiac or intrapulmonary shunt. There is no atrial septal defect. Normal flow patterns in the pulmonary veins. Right Atrium The right atrium is dilated by visual assessment. IVC/SVC The IVC was not well visualized, and an assumed pressure of 8mmHg was used for calculations. Mitral Valve The mitral valve leaflets are normal in appearance with no evidence of mitral valve prolapse. There is mild mitral regurgitation. There is no mitral stenosis. Tricuspid Valve The tricuspid valve is normal in appearance. There is no tricuspid regurgitation. There is no significant tricuspid stenosis. Aortic Valve The aortic valve appears to be trileaflet. The left, right and non-coronary cusps are calcified. There is no aortic valve vegetation. There is mild aortic valve regurgitation with a centrally directed jet. There is no hemodynamically significant valvular aortic stenosis. Pulmonic Valve The pulmonic valve is normal in appearance. There is no pulmonic regurgitation. There is no pulmonic stenosis. Pericardium No pericardial effusion. Great Vessels The aortic root is normal in size. There is atherosclerotic plaque(s) in the descending aorta. The main pulmonary artery is not well visualized. Study Details Informed consent was obtained prior to the procedure. A complete transesophageal echocardiogram using complete 2D imaging was performed. During the study the esophageal, transgastric and descending thoracic view was captured. The probe was inserted by the head cashier. There was no probe insertion difficulty. Moderate sedation was given. Sedation was performed by cardiology.Lidocaine was administered during the study. Heart Rate: 74 bpm. BSA: 2.07 m2. There were no complications during the procedure. Study Recommendation There is no recent study available for direct [id number] comparison. us Darrin Mitchell MD CV ECHO PROCEDURES Final Resul t * POCT glucose meter (02/10/2023 8:51 AM EST) POCT Glucose 91 74 - 99 mg/dL 02/10/2023 8:54 AM EST [facility] Comment:Accuracy of a glucos e result obtained from a capillary whole blood specimen relies upon adequate, non-compromised capillary blood flow. If the capillary glucose result is not consistent with the patient's clinical signs and symptoms, glucose testing should be repeated with either an arterial or venous sample on the glucometer or sent to the main labortory for testing. Comment 02/10/2023 8:54 AM EST [facility] Glassworker ID Geno Cash 02/10/2023 8:54 AM EST [facility] Device ID [id number] 02/10/2023 8:54 AM EST [facility] Specimen Type POC Capillary 02/10/2023 8:54 AM EST [facility] Blood Capillary blood specimen / Unknown 02/10/2023 8:51 AM EST 02/10/2023 8:54 AM EST us Harlan Ricketts MD LAB POINT OF CARE TE ST DOCKED DEVICE UNSOLICITED RESULTS Final Result Performing Organization Address City/[facility] Co de Phone Number [facility] [address] [place] [address] * Magnesium (02/10/2023 5:02 AM EST) Pathologist [facility] Magnesium, Plasma 2.4 1.9 - 2.4 mg/dL 02/10/2023 5:51 AM EST [facility] Blood Venous blood specimen / Unknown Venipuncture / Unknown 02/10/2023 5:02 AM EST 02/10/2023 5:21 AM EST us Darrin Mitchell MD LAB BLOOD ORDERABLES Final Res ult Performing Organization Address City/[facility] Co de Phone Number [facility] [address] [place] [address] * (ABNORMAL) Comprehensive metabolic panel (02/10/2023 5:02 AM EST) Glucose, Plasma 86 74 - 99 mg/dL 02/10/2023 5:51 AM EST [facility] BUN, Plasma 64(H) 7 - 21 mg/dL 02/10/2023 5:51 AM EST [facility] Creatinine, Plasma 3.02(H) 0.80 - 1.30 mg/dL 02/10/2023 5:51 AM EST [facility] BUN/Creatinine Ratio 21 02/10/2023 5:51 AM EST [facility] Sodium, Plasma 142 136 - 145 mmol/L 02/10/2023 5:51 AM EST [facility] Potassium, Plasma 4.4 3.7 - 4.8 mmol/L 02/10/2023 5:51 AM EST [facility] Chloride, Plasma 107 97 - 107 mmol/L 02/10/2023 5:51 AM EST [facility] CO2, Plasma 27 22 - 29 mmol/L 02/10/2023 5:51 AM EST [facility] Anion Gap 8 6 - 16 mmol/L 02/10/2023 5:51 AM EST [facility] Total Calcium, Plasma 8.8(L) 8.9 - 10.2 mg/dL 02/10/2023 5:51 AM EST [facility] Total Protein 5.9(L) 6.3 - 7.9 g/dL 02/10/2023 5:51 AM EST [facility] Albumin, Plasma 3.3(L) 3.5 - 5.2 g/dL 02/10/2023 5:51 AM EST [facility] AST, Plasma 44 10 - 50 U/L 02/10/2023 5:51 AM EST [facility] ALT, Plasma 28 10 - 50 U/L 02/10/2023 5:51 AM EST [facility] Alkaline Phosphatase, Plasma 157(H) 40 - 115 U/L 02/10/2023 5:51 AM EST [facility] Total Bilirubin, Plasma 0.6 0.2 - 1.1 mg/dL 02/10/2023 5:51 AM EST [facility] eGFRcr 23.6 mL/min/1.7 3m*2 02/10/2023 5:51 AM EST [facility] Comment:Reported eGFRcr in m L/min/1.73m2 is based the CKD-EPI 2020 equation that does not use a race coefficient. Blood Venous blood specimen / Unknown Venipuncture / Unknown 02/10/2023 5:02 AM EST 02/10/2023 5:21 AM EST us Darrin Mitchell MD LAB BLOOD ORDERABLES Final Res ult [facility] [address] [place] [address] * (ABNORMAL) CBC W/O Differential (02/10/2023 5:02 AM EST) WBC Count 4.96 3.70 - 10.30 10*3/uL LAB HEMATOLOGY METHOD 02/10/2023 5:34 AM EST [facility] RBC Count 3.81(L) 4.60 - 6.10 10*6/uL LAB HEMATOLOGY METHOD 02/10/2023 5:34 AM EST [facility] HGB 10.9(L) 13.7 - 17.5 g/dL LAB HEMATOLOGY METHOD 02/10/2023 5:34 AM EST [facility] HCT 33.4(L) 40.0 - 51.0 % LAB HEMATOLOGY METHOD 02/10/2023 5:34 AM EST [facility] Platelet Count 203 155 - 369 10*3/uL LAB HEMATOLOGY METHOD 02/10/2023 5:34 AM EST [facility] MCV 88 79 - 98 fL LAB HEMATOLOGY METHOD 02/10/2023 5:34 AM EST [facility] MCH 28.6 26.0 - 32.0 pg LAB HEMATOLOGY METHOD 02/10/2023 5:34 AM EST [facility] MCHC 32.6 30.7 - 35.5 g/dL LAB HEMATOLOGY METHOD 02/10/2023 5:34 AM EST [facility] RDW 13.5 11.5 - 14.5 % LAB HEMATOLOGY METHOD 02/10/2023 5:34 AM EST [facility] MPV 11.4 8.8 - 12.5 fL LAB HEMATOLOGY METHOD 02/10/2023 5:34 AM EST [facility] nRBC 0.0 <=0.0 per 100 WBCs LAB HEMATOLOGY METHOD 02/10/2023 5:34 AM EST [facility] Blood Venous blood specimen / Unknown Venipuncture / Unknown 02/10/2023 5:02 AM EST 02/10/2023 5:24 AM EST us Darrin Mitchell MD LAB BLOOD ORDERABLES Final Res ult [facility] [address] [place] [address] * (ABNORMAL) POCT glucose meter (02/09/2023 8:17 PM EST) [facility] POCT Glucose 213(H) 74 - 99 mg/dL 02/09/2023 8:19 PM EST [facility] Comment:Accuracy of a glucos e result obtained from a capillary whole blood specimen relies upon adequate, non-compromised capillary blood flow. If the capillary glucose result is not consistent with the patient's clinical signs and symptoms, glucose testing should be repeated with either an arterial or venous sample on the glucometer or sent to the main labortory for testing. Comment 02/09/2023 8:19 PM EST [facility] Glassworker ID Lia Nelson 02/09/2023 8:19 PM EST [facility] Device ID [id number] 02/09/2023 8:19 PM EST [facility] Specimen Type POC Capillary 02/09/2023 8:19 PM EST [facility] Blood Capillary blood specimen / Unknown 02/09/2023 8:17 PM EST 02/09/2023 8:19 PM EST us Darrin Mitchell MD LAB POINT OF CARE TE ST DOCKED DEVICE UNSOLICITED RESULTS Final Result Performing Organization Address [facility] de Phone Number [facility] [address] [place] [address] * (ABNORMAL) POCT glucose meter (02/09/2023 5:56 PM EST) [facility] POCT Glucose 118(H) 74 - 99 mg/dL 02/09/2023 5:59 PM EST [facility] Comment:Accuracy of [...] to the main labortory for testing. Comment 02/09/2023 5:59 PM EST [facility] Glassworker ID Uzma Joel 023 5:59 PM EST [facility] Device ID [id number] 02/09/2023 5:59 PM EST [facility] Specimen Type POC Capillary 02/09/2023 5:59 PM EST [facility] Blood Capillary blood specimen / Unknown 02/09/2023 5:56 PM EST 02/09/2023 5:59 PM EST us Darrin Mitchell MD LAB POINT OF CARE TE ST DOCKED DEVICE UNSOLICITED RESULTS Final Result Performing Organization Address City/[facility]/ZIP Co de Phone Number [facility] [address] [place] [address] * (ABNORMAL) POCT glucose meter (02/09/2023 1:07 PM EST) [facility] POCT Glucose 218(H) 74 - 99 mg/dL 02/09/2023 1:34 PM EST [facility] Comment:Accuracy of [...] to the main labortory for testing. Comment 02/09/2023 1:34 PM EST [employer] [facility] Glassworker ID Uzma Joel 023 1:34 PM EST [facility] Device ID [id number] 02/09/2023 1:34 PM EST [facility] Specimen Type POC Capillary 02/09/2023 1:34 PM EST [facility] Blood Capillary blood specimen / Unknown 02/09/2023 1:07 PM EST 02/09/2023 1:34 PM EST Darrin Mitchell MD LAB POINT OF CARE TE ST DOCKED DEVICE UNSOLICITED RESULTS Final Result [facility] [address] [place] [address] * (ABNORMAL) POCT glucose meter (02/09/2023 8:58 AM EST) [facility] POCT Glucose 122(H) 74 - 99 mg/dL 02/09/2023 9:00 AM EST [facility] Comment:Accuracy of a glucos e result obtained from a capillary whole blood specimen relies upon adequate, non-compromised capillary blood flow. If the capillary glucose result is not consistent with the patient's clinical signs and symptoms, glucose testing should be repeated with either an arterial or venous sample on the glucometer or sent to the main labortory for testing. Comment 02/09/2023 9:00 AM EST [facility] Glassworker ID Jake Saunders 9:00 AM EST [facility] Device ID [id number] 02/09/2023 9:00 AM EST [facility] Specimen Type POC Capillary 02/09/2023 9:00 AM EST [facility] Blood Capillary blood specimen / Unknown 02/09/2023 8:58 AM EST 02/09/2023 9:00 AM EST us Darrin Mitchell MD LAB POINT OF CARE TE ST DOCKED DEVICE UNSOLICITED RESULTS Final Result Performing Organization Address [facility] Co de Phone Number [facility] [address] [place] [address] * Magnesium, Plasma (02/09/2023 5:18 AM EST) Magnesium, Plasma 2.1 1.9 - 2.4 mg/dL 02/09/2023 5:58 AM EST [facility] Blood Venous blood specimen / Unknown Venipuncture / Unknown 02/09/2023 5:18 AM EST 02/09/2023 5:30 AM EST us Darrin Mitchell MD LAB BLOOD ORDERABLES Final Res ult Performing Organization Address City/[facility] Co de Phone Number [facility] [address] [place] [address] * (ABNORMAL) Comprehensive Metabolic Panel, Plasma (02/09/2023 5:18 AM EST) Glucose, Plasma 102(H) 74 - 99 mg/dL 02/09/2023 5:58 AM EST [facility] BUN, Plasma 74(H) 7 - 21 mg/dL 02/09/2023 5:58 AM EST [facility] Creatinine, Plasma 3.15(H) 0.80 - 1.30 mg/dL 02/09/2023 5:58 AM EST [facility] BUN/Creatinine Ratio 23 02/09/2023 5:58 AM EST [facility] Sodium, Plasma 141 136 - 145 mmol/L 02/09/2023 5:58 AM EST [facility] Potassium, Plasma 4.3 3.7 - 4.8 mmol/L 02/09/2023 5:58 AM EST [facility] Chloride, Plasma 105 97 - 107 mmol/L 02/09/2023 5:58 AM EST [facility] CO2, Plasma 26 22 - 29 mmol/L 02/09/2023 5:58 AM EST [facility] Anion Gap 10 6 - 16 mmol/L 02/09/2023 5:58 AM EST [facility] Total Calcium, Plasma 8.4(L) 8.9 - 10.2 mg/dL 02/09/2023 5:58 AM EST [facility] Total Protein 5.8(L) 6.3 - 7.9 g/dL 02/09/2023 5:58 AM EST [facility] Albumin, Plasma 3.3(L) 3.5 - 5.2 g/dL 02/09/2023 5:58 AM EST [facility] AST, Plasma 51(H) 10 - 50 U/L 02/09/2023 5:58 AM EST [facility] ALT, Plasma 32 10 - 50 U/L 02/09/2023 5:58 AM EST [facility] Alkaline Phosphatase, Plasma 160(H) 40 - 115 U/L 02/09/2023 5:58 AM EST [facility] Total Bilirubin, Plasma 0.4 0.2 - 1.1 mg/dL 02/09/2023 5:58 AM EST [facility] eGFRcr 22.4 mL/min/1.7 3m*2 02/09/2023 5:58 AM EST [facility] Comment:Reported eGFRcr in m L/min/1.73m2 is based the CKD-EPI 2020 equation that does not use a race coefficient. Blood Venous blood specimen / Unknown Venipuncture / Unknown 02/09/2023 5:18 AM EST 02/09/2023 5:30 AM EST us Darrin Mitchell MD LAB BLOOD ORDERABLES Final Res ult [facility] [address] [place] [address] * (ABNORMAL) CBC and Differential (02/09/2023 5:18 AM EST) WBC Count 5.24 3.70 - 10.30 10*3/uL LAB HEMATOLOGY METHOD 02/09/2023 5:37 AM EST [facility] RBC Count 3.75(L) 4.60 - 6.10 10*6/uL LAB HEMATOLOGY METHOD 02/09/2023 5:37 AM EST [facility] HGB 10.8(L) 13.7 - 17.5 g/dL LAB HEMATOLOGY METHOD 02/09/2023 5:37 AM EST [facility] HCT 33.1(L) 40.0 - 51.0 % LAB HEMATOLOGY METHOD 02/09/2023 5:37 AM EST [facility] Platelet Count 194 155 - 369 10*3/uL LAB HEMATOLOGY METHOD 02/09/2023 5:37 AM EST [facility] MCV 88 79 - 98 fL LAB HEMATOLOGY METHOD 02/09/2023 5:37 AM EST [facility] MCH 28.8 26.0 - 32.0 pg LAB HEMATOLOGY METHOD 02/09/2023 5:37 AM EST [facility] MCHC 32.6 30.7 - 35.5 g/dL LAB HEMATOLOGY METHOD 02/09/2023 5:37 AM EST [facility] RDW 13.5 11.5 - 14.5 % LAB HEMATOLOGY METHOD 02/09/2023 5:37 AM EST [facility] MPV 10.9 8.8 - 12.5 fL LAB HEMATOLOGY METHOD 02/09/2023 5:37 AM EST [facility] nRBC 0.0 <=0.0 per 100 WBCs LAB HEMATOLOGY METHOD 02/09/2023 5:37 AM EST [facility] Differential Type Automated LAB HEMATOLOGY METHOD 02/09/2023 5:37 AM EST [facility] Neutrophils % 50.0 % LAB HEMATOLOGY METHOD 02/09/2023 5:37 AM EST [facility] Lymphocytes % 35.0 % LAB HEMATOLOGY METHOD 02/09/2023 5:37 AM EST [facility] Monocytes % 12.0 % LAB HEMATOLOGY METHOD 02/09/2023 5:37 AM EST [facility] Eosinophils % 3.0 % LAB HEMATOLOGY METHOD 02/09/2023 5:37 AM EST [facility] Basophils % 0.0 % LAB HEMATOLOGY METHOD 02/09/2023 5:37 AM EST [facility] Immature Granulocytes % 0.0 % LAB HEMATOLOGY METHOD 02/09/2023 5:37 AM EST [facility] Neutrophils Absolute 2.59 1.60 - 6.10 10*3/uL LAB HEMATOLOGY METHOD 02/09/2023 5:37 AM EST [facility] Lymphocytes Absolute 1.85 1.20 - 3.90 10*3/uL LAB HEMATOLOGY METHOD 02/09/2023 5:37 AM EST [facility] Monocytes Absolute 0.63 0.30 - 0.90 10*3/uL LAB HEMATOLOGY METHOD 02/09/2023 5:37 AM EST [facility] Eosinophils Absolute 0.13 0.00 - 0.50 10*3/uL LAB HEMATOLOGY METHOD 02/09/2023 5:37 AM EST [facility] Basophils Absolute 0.02 0.00 - 0.10 10*3/uL LAB HEMATOLOGY METHOD 02/09/2023 5:37 AM EST [facility] Immature Granulocytes Absolute 0.02 0.00 - 0.06 10*3/uL LAB HEMATOLOGY METHOD 02/09/2023 5:37 AM EST [facility] Blood Venous blood specimen / Unknown Venipuncture / Unknown 02/09/2023 5:18 AM EST 02/09/2023 5:30 AM EST Narrative [facility] - 02/09/2023 5:37 AM EST Therapeutic decision making should be based on absolute values, rather than percentages. Darrin Mitchell MD LAB BLOOD ORDERABLES Final Res ult [facility] [address] [place] [address] * (ABNORMAL) POCT glucose meter (02/08/2023 8:28 PM EST) POCT Glucose 118(H) 74 - 99 mg/dL 02/08/2023 8:39 PM EST [facility] Comment:Accuracy of a glucos e result obtained from a capillary whole blood specimen relies upon adequate, non-compromised capillary blood flow. If the capillary glucose result is not consistent with the patient's clinical signs and symptoms, glucose testing should be repeated with either an arterial or venous sample on the glucometer or sent to the main labortory for testing. Comment 02/08/2023 8:39 PM EST [facility] Glassworker ID Juliette Ochoa 02/08/2023 8:39 PM EST [facility] Device ID [id number] 02/08/2023 8:39 PM EST [facility] Specimen Type POC Capillary 02/08/2023 8:39 PM EST [facility] Blood Capillary blood specimen / Unknown 02/08/2023 8:28 PM EST 02/08/2023 8:39 PM EST us Darrin Mitchell MD LAB POINT OF CARE TE ST DOCKED DEVICE UNSOLICITED RESULTS Final Result Performing Organization Address [facility] de Phone Number [facility] [address] [place] [address] * (ABNORMAL) POCT glucose meter (02/08/2023 5:50 PM EST) POCT Glucose 105(H) 74 - 99 mg/dL 02/08/2023 5:52 PM EST [facility] Comment:Accuracy of a glucos e result obtained from a capillary whole blood specimen relies upon adequate, non-compromised capillary blood flow. If the capillary glucose result is not consistent with the patient's clinical signs and symptoms, glucose testing should be repeated with either an arterial or venous sample on the glucometer or sent to the main labortory for testing. Comment 02/08/2023 5:52 PM EST [facility] Glassworker ID Fernanda Coto 02/09/20 5:52 PM EST [facility] Device ID [id number] 02/08/2023 5:52 PM EST [facility] Specimen Type POC Capillary 02/08/2023 5:52 PM EST [facility] Blood Capillary blood specimen / Unknown 02/08/2023 5:50 PM EST 02/08/2023 5:52 PM EST us Darrin Mitchell MD LAB POINT OF CARE TE ST DOCKED DEVICE UNSOLICITED RESULTS Final Result Performing Organization Address [facility] de Phone Number [facility] [address] [place] [address] * VAS US Renal Artery Duplex (02/08/2023 4:13 PM EST) Anatomical Region Laterality Modality Vascular, Kidney Ultrasound Impressions 02/08/2023 6:28 PM EST Right: ??No evidence of a hemodynamically significant renal artery stenosis. ??Kidney size is within normal limits. Parenchymal flow is not detected. Left: ??No evidence of a hemodynamically significant renal artery stenosis. ??Kidney size is within normal limits. COMMUNICATION: Per this written report. Preliminary report signed by CAROLE BLANTON on 02/08/2023 4:27 PM By electronically signing this report, I, the attending physician, attest that I have personally reviewed the images/data for the above examination(s) and I agree with the final edited report. Drafted by CAROLE BLANTON on 02/08/2023 4:24 PM Final report signed by Clementina Galeano MD on 02/08/2023 6:28 PM Narrative 02/08/2023 6:28 PM EST CLINICAL INDICATION: Increased Creatinine (>50% baseline). TECHNIQUE: Non-invasive, real time duplex exam of the renal arterial circulation with Doppler ultrasonic waveform and spectral analysis was performed. COMPARISON: None. FINDINGS: Right: The kidney length measures 9.4 cm. ??The peak renal artery velocities are 118 cm/s with a Renal/Aorta ratio of 1.3. ??Blood flow within the parenchyma is not detected. Venous spectral analysis demonstrates a spontaneous flow signal. Left: The kidney length measures 10.2 cm. ??The peak renal artery velocities are 62 cm/s with a Renal/Aorta ratio of 0.70. ??Parenchymal blood flow pattern is normal with a resistive index range of 0.51 - 0.61. ??Venous spectral analysis demonstrates a spontaneous flow signal. Procedure Note Clementina Galeano MD - 02/08/2023 CLINICAL INDICATION: Increased Creatinine (>50% baseline). TECHNIQUE: Non-invasive, real time duplex exam of the renal arterial circulation withDoppler ultrasonic waveform and spectral analysis was performed. COMPARISON: None. FINDINGS: Right: The kidney length measures 9.4 cm. The peak renal arteryvelocities are 118 cm/s with a Renal/Aorta ratio of 1.3. Blood flowwithin the parenchyma is not detected. Venous spectral analysisdemonstrates a spontaneous flow signal. Left: The kidney length measures 10.2 cm. The peak renal arteryvelocities are 62 cm/s with a Renal/Aorta ratio of 0.70. Parenchymalblood flow pattern is normal with a resistive index range of 0.51 - 0.61.Venous spectral analysis demonstrates a spontaneous flow signal. IMPRESSION: Right: No evidence of a hemodynamically significant renal arterystenosis. Kidney size is within normal limits. Parenchymal flow is notdetected. Left: No evidence of a hemodynamically significant renal artery stenosis.Kidney size is within normal limits. COMMUNICATION: Per this written report. Preliminary report signed by CAROLE BLANTON on 02/08/2023 4:27 PM By electronically signing this report, I, the attending physician, [email or web address] I have personally reviewed the images/data for the aboveexamination(s) and I agree with the final edited report. Drafted by CAROLE BLANTON on 02/08/2023 4:24 PM Final report signed by Clementina Galeano MD on 02/08/2023 6:28 PM us Darrin Mitchell MD CV VASCULAR PROCEDURES Final R esult * (ABNORMAL) POCT glucose meter (02/08/2023 12:26 PM EST) [facility] POCT Glucose 159(H) 74 - 99 mg/dL 02/08/2023 12:27 PM EST [facility] Comment:Accuracy of a glucos e result obtained from a capillary whole blood specimen relies upon adequate, non-compromised capillary blood flow. If the capillary glucose result is not consistent with the patient's clinical signs and symptoms, glucose testing should be repeated with either an arterial or venous sample on the glucometer or sent to the main labortory for testing. Comment 02/08/2023 12:27 PM EST [facility] Glassworker ID Fernanda Coto 02/09/20 12:27 PM EST [facility] Device ID [id number] 02/08/2023 12:27 PM EST [facility] Specimen Type POC Capillary 02/08/2023 12:27 PM EST [facility] Blood Capillary blood specimen / Unknown 02/08/2023 12:26 PM EST 02/08/2023 12:27 PM EST us Darrin Mitchell MD LAB POINT OF CARE TE ST DOCKED DEVICE UNSOLICITED RESULTS Final Result [facility] [address] [place] [address] * Protein, Random, Urine with Creatinine (02/08/2023 11:37 AM EST) [facility] Protein, Urine 201 mg/dL 02/08/2023 1:03 PM EST [facility] Creatinine, Urine 59 mg/dL 02/08/2023 1:03 PM EST [facility] Protein/Creati nine Ratio 3.4 mg/mg Creat 02/08/2023 1:03 PM EST [facility] Urine Urine specimen obtained by clean catch procedure / Unknown Non-blood Collection / Unknown 02/08/2023 11:37 AM EST 02/08/2023 12:04 PM EST Darrin Mitchell MD LAB URINE ORDERABLES Final Res ult Performing Organization Address [facility] de Phone Number [facility] [address] [place] [address] * Urea nitrogen, urine (02/08/2023 11:37 AM EST) Urea Nitrogen, Urine 631 mg/dL 02/08/2023 12:52 PM EST [facility] Urine Urine specimen obtained by clean catch procedure / Unknown Non-blood Collection / Unknown 02/08/2023 11:37 AM EST 02/08/2023 12:04 PM EST Darrin Mitchell MD LAB URINE ORDERABLES Final Res ult Performing Organization Address [facility] Phone Number [facility] [address] [place] [address] * POCT glucose meter (02/08/2023 9:48 AM EST) POCT Glucose 81 74 - 99 mg/dL 02/08/2023 9:49 AM EST [facility] Comment:Accuracy of a glucos e result obtained from a capillary whole blood specimen relies upon adequate, non-compromised capillary blood flow. If the capillary glucose result is not consistent with the patient's clinical signs and symptoms, glucose testing should be repeated with either an arterial or venous sample on the glucometer or sent to the main labortory for testing. Comment 02/08/2023 9:49 AM EST [facility] Glassworker ID Fernanda Coto 02/09/20 9:49 AM EST [facility] Device ID [id number] 02/08/2023 9:49 AM EST [facility] Specimen Type POC Capillary 02/08/2023 9:49 AM EST [facility] Blood Capillary blood specimen / Unknown 02/08/2023 9:48 AM EST 02/08/2023 9:49 AM EST Darrin Mitchell MD LAB POINT OF CARE TE ST DOCKED DEVICE UNSOLICITED RESULTS Final Result Performing Organization Address [facility] Co de Phone Number [facility] [address] [place] [address] * (ABNORMAL) POCT glucose meter (02/08/2023 9:06 AM EST) [facility] POCT Glucose 71(L) 74 - 99 mg/dL 02/08/2023 9:07 AM EST [facility] Comment:Accuracy of a glucos e result obtained from a capillary whole blood specimen relies upon adequate, non-compromised capillary blood flow. If the capillary glucose result is not consistent with the patient's clinical signs and symptoms, glucose testing should be repeated with either an arterial or venous sample on the glucometer or sent to the main labortory for testing. Comment 02/08/2023 9:07 AM EST setObject LAB Glassworker ID Tiara Maguire 02/08/2023 9:07 AM EST [facility] Device ID [id number] 02/08/2023 9:07 AM EST setObject LAB Specimen Type POC Capillary 02/08/2023 9:07 AM EST setObject LAB Blood Capillary blood specimen / Unknown 02/08/2023 9:06 AM EST 02/08/2023 9:07 AM EST Darrin Mitchell MD LAB POINT OF CARE TE ST DOCKED DEVICE UNSOLICITED RESULTS Final Result Performing Organization Address City/[facility] Co de Phone Number [facility] [address] [place] [address] * (ABNORMAL) Magnesium (02/08/2023 3:04 AM EST) Pathologist [facility] Magnesium, Plasma 2.5(H) 1.9 - 2.4 mg/dL 02/08/2023 3:43 AM EST [facility] Blood Venous blood specimen / Unknown Venipuncture / Unknown 02/08/2023 3:04 AM EST 02/08/2023 3:08 AM EST us Darrin Mitchell MD LAB BLOOD ORDERABLES Final Res ult [facility] [address] [place] [address] * (ABNORMAL) Comprehensive Metabolic Panel, Plasma (02/08/2023 3:04 AM EST) Glucose, Plasma 65(L) 74 - 99 mg/dL 02/08/2023 3:43 AM EST [facility] BUN, Plasma 90(H) 7 - 21 mg/dL 02/08/2023 3:43 AM EST [facility] Creatinine, Plasma 3.88(H) 0.80 - 1.30 mg/dL 02/08/2023 3:43 AM EST [facility] BUN/Creatinine Ratio 23 02/08/2023 3:43 AM EST [facility] Sodium, Plasma 143 136 - 145 mmol/L 02/08/2023 3:43 AM EST [facility] Potassium, Plasma 4.6 3.7 - 4.8 mmol/L 02/08/2023 3:43 AM EST [facility] Chloride, Plasma 103 97 - 107 mmol/L 02/08/2023 3:43 AM EST [facility] CO2, Plasma 29 22 - 29 mmol/L 02/08/2023 3:43 AM EST [facility] Anion Gap 11 6 - 16 mmol/L 02/08/2023 3:43 AM EST [facility] Total Calcium, Plasma 8.6(L) 8.9 - 10.2 mg/dL 02/08/2023 3:43 AM EST [facility] Total Protein 5.5(L) 6.3 - 7.9 g/dL 02/08/2023 3:43 AM EST [facility] Albumin, Plasma 2.9(L) 3.5 - 5.2 g/dL 02/08/2023 3:43 AM EST [facility] AST, Plasma 52(H) 10 - 50 U/L 02/08/2023 3:43 AM EST [facility] ALT, Plasma 30 10 - 50 U/L 02/08/2023 3:43 AM EST [facility] Alkaline Phosphatase, Plasma 139(H) 40 - 115 U/L 02/08/2023 3:43 AM EST [facility] Total Bilirubin, Plasma 0.3 0.2 - 1.1 mg/dL 02/08/2023 3:43 AM EST [facility] eGFRcr 17.5 mL/min/1.7 3m*2 02/08/2023 3:43 AM EST [facility] Comment:Reported eGFRcr in m L/min/1.73m2 is based the CKD-EPI 2020 equation that does not use a race coefficient. Blood Venous blood specimen / Unknown Venipuncture / Unknown 02/08/2023 3:04 AM EST 02/08/2023 3:08 AM EST us Darrin Mitchell MD LAB BLOOD ORDERABLES Final Res ult [facility] [address] [place] [id number] * (ABNORMAL) CBC and Differential (02/08/2023 3:04 AM EST) WBC Count 6.20 3.70 - 10.30 10*3/uL LAB HEMATOLOGY METHOD 02/08/2023 3:20 AM EST [facility] RBC Count 3.67(L) 4.60 - 6.10 10*6/uL LAB HEMATOLOGY METHOD 02/08/2023 3:20 AM EST [facility] HGB 10.3(L) 13.7 - 17.5 g/dL LAB HEMATOLOGY METHOD 02/08/2023 3:20 AM EST [facility] HCT 32.1(L) 40.0 - 51.0 % LAB HEMATOLOGY METHOD 02/08/2023 3:20 AM EST [facility] Platelet Count 202 155 - 369 10*3/uL LAB HEMATOLOGY METHOD 02/08/2023 3:20 AM EST [facility] MCV 88 79 - 98 fL LAB HEMATOLOGY METHOD 02/08/2023 3:20 AM EST [facility] MCH 28.1 26.0 - 32.0 pg LAB HEMATOLOGY METHOD 02/08/2023 3:20 AM EST [facility] MCHC 32.1 30.7 - 35.5 g/dL LAB HEMATOLOGY METHOD 02/08/2023 3:20 AM EST [facility] RDW 13.5 11.5 - 14.5 % LAB HEMATOLOGY METHOD 02/08/2023 3:20 AM EST [facility] MPV 11.3 8.8 - 12.5 fL LAB HEMATOLOGY METHOD 02/08/2023 3:20 AM EST [facility] nRBC 0.0 <=0.0 per 100 WBCs LAB HEMATOLOGY METHOD 02/08/2023 3:20 AM EST [facility] Differential Type Automated LAB HEMATOLOGY METHOD 02/08/2023 3:20 AM EST [facility] Neutrophils % 58.0 % LAB HEMATOLOGY METHOD 02/08/2023 3:20 AM EST [facility] Lymphocytes % 29.0 % LAB HEMATOLOGY METHOD 02/08/2023 3:20 AM EST [facility] Monocytes % 10.0 % LAB HEMATOLOGY METHOD 02/08/2023 3:20 AM EST [facility] Eosinophils % 3.0 % LAB HEMATOLOGY METHOD 02/08/2023 3:20 AM EST [facility] Basophils % 0.0 % LAB HEMATOLOGY METHOD 02/08/2023 3:20 AM EST [facility] Immature Granulocytes % 0.0 % LAB HEMATOLOGY METHOD 02/08/2023 3:20 AM EST [facility] Neutrophils Absolute 3.62 1.60 - 6.10 10*3/uL LAB HEMATOLOGY METHOD 02/08/2023 3:20 AM EST [facility] Lymphocytes Absolute 1.78 1.20 - 3.90 10*3/uL LAB HEMATOLOGY METHOD 02/08/2023 3:20 AM EST [facility] Monocytes Absolute 0.59 0.30 - 0.90 10*3/uL LAB HEMATOLOGY METHOD 02/08/2023 3:20 AM EST [facility] Eosinophils Absolute 0.18 0.00 - 0.50 10*3/uL LAB HEMATOLOGY METHOD 02/08/2023 3:20 AM EST [facility] Basophils Absolute 0.01 0.00 - 0.10 10*3/uL LAB HEMATOLOGY METHOD 02/08/2023 3:20 AM EST [facility] Immature Granulocytes Absolute 0.02 0.00 - 0.06 10*3/uL LAB HEMATOLOGY METHOD 02/08/2023 3:20 AM EST [facility] Blood Venous blood specimen / Unknown Venipuncture / Unknown 02/08/2023 3:04 AM EST 02/08/2023 3:08 AM EST [facility] - 02/08/2023 3:20 AM EST Therapeutic decision making should be based on absolute values, rather than percentages. us Darrin Mitchell MD LAB BLOOD ORDERABLES Final Res ult Performing Organization Address [facility] Co de Phone Number [facility] [address] [place] [address] * (ABNORMAL) POCT glucose meter (02/07/2023 8:28 PM EST) POCT Glucose 175(H) 74 - 99 mg/dL 02/07/2023 8:31 PM EST [facility] Comment:Accuracy of a glucos e result obtained from a capillary whole blood specimen relies upon adequate, non-compromised capillary blood flow. If the capillary glucose result is not consistent with the patient's clinical signs and symptoms, glucose testing should be repeated with either an arterial or venous sample on the glucometer or sent to the main labortory for testing. Comment 02/07/2023 8:31 PM EST [facility] Glassworker ID Enedelia Sin 02/07/2023 8:31 PM EST [facility] Device ID [id number] 02/07/2023 8:31 PM EST [facility] Specimen Type POC Capillary 02/07/2023 8:31 PM EST [facility] Blood Capillary blood specimen / Unknown 02/07/2023 8:28 PM EST 02/07/2023 8:31 PM EST us Darrin Mitchell MD LAB POINT OF CARE TE ST DOCKED DEVICE UNSOLICITED RESULTS Final Result Performing Organization Address City/[facility] de Phone Number [facility] [address] [place] [address] * (ABNORMAL) POCT glucose meter (02/07/2023 6:11 PM EST) POCT Glucose 224(H) 74 - 99 mg/dL 02/07/2023 6:13 PM EST [facility] Comment:Accuracy of [...] to the main labortory for testing. Comment 02/07/2023 6:13 PM EST [facility] Glassworker ID Everett Man 02/07/2023 6:13 PM EST [facility] Device ID [id number] 02/07/2023 6:13 PM EST [facility] Specimen Type POC Capillary 02/07/2023 6:13 PM EST [facility] Blood Capillary blood specimen / Unknown 02/07/2023 6:11 PM EST 02/07/2023 6:13 PM EST us Darrin Mitchell MD LAB POINT OF CARE TE ST DOCKED DEVICE UNSOLICITED RESULTS Final Result Performing Organization Address City/[facility]/ZIP Co de Phone Number [facility] [address] [place] [address] * (ABNORMAL) POCT glucose meter (02/07/2023 1:42 PM EST) [facility] POCT Glucose 245(H) 74 - 99 mg/dL 02/07/2023 1:43 PM EST [facility] Comment:Accuracy of [...] to the main labortory for testing. Comment 02/07/2023 1:43 PM EST [facility] Glassworker ID Everett Man 02/07/2023 1:43 PM EST [facility] Device ID [id number] 02/07/2023 1:43 PM EST [facility] Specimen Type POC Capillary 02/07/2023 1:43 PM EST [facility] Blood Capillary blood specimen / Unknown 02/07/2023 1:42 PM EST 02/07/2023 1:43 PM EST us Darrin Mitchell MD LAB POINT OF CARE TE ST DOCKED DEVICE UNSOLICITED RESULTS Final Result Performing Organization Address City/[facility]/ZIP Co de Phone Number [facility] [address] [place] [address] * (ABNORMAL) POCT glucose meter (02/07/2023 9:05 AM EST) [facility] POCT Glucose 117(H) 74 - 99 mg/dL 02/07/2023 9:07 AM EST [facility] Comment:Accuracy of a glucos e result obtained from a capillary whole blood specimen relies upon adequate, non-compromised capillary blood flow. If the capillary glucose result is not consistent with the patient's clinical signs and symptoms, glucose testing should be repeated with either an arterial or venous sample on the glucometer or sent to the main labortory for testing. Comment 02/07/2023 9:07 AM EST [facility] Glassworker ID Everett Man 02/07/2023 9:07 AM EST [facility] Device ID [id number] 02/07/2023 9:07 AM EST setObject LAB Specimen Type POC Capillary 02/07/2023 9:07 AM EST setObject LAB Blood Capillary blood specimen / Unknown 02/07/2023 9:05 AM EST 02/07/2023 9:07 AM EST us Darrin Mitchell MD LAB POINT OF CARE TE ST DOCKED DEVICE UNSOLICITED RESULTS Final Result Performing Organization Address City/[facility] Co de Phone Number [facility] [address] [place] [address] * (ABNORMAL) Magnesium, Plasma (02/07/2023 2:32 AM EST) [facility] Magnesium, Plasma 2.6(H) 1.9 - 2.4 mg/dL 02/07/2023 3:24 AM EST [facility]Object LAB Blood Venous blood specimen / Unknown Venipuncture / Unknown 02/07/2023 2:32 AM EST 02/07/2023 2:43 AM EST us Darrin Mitchell MD LAB BLOOD ORDERABLES Final Res ult Performing Organization Address City/[facility]/ZIP Co de Phone Number [facility] LAB [address] [place] [address] * (ABNORMAL) Comprehensive Metabolic Panel, Plasma (02/07/2023 2:32 AM EST) [facility] Glucose, Plasma 132(H) 74 - 99 mg/dL 02/07/2023 3:24 AM EST [facility]Object LAB BUN, Plasma 98(H) 7 - 21 mg/dL 02/07/2023 3:24 AM [facility] Creatinine, Plasma 4.12(H) 0.80 - 1.30 mg/dL 02/07/2023 3:24 AM [facility] BUN/Creatinine Ratio 24 02/07/2023 3:24 AM [facility] Sodium, Plasma 140 136 - 145 mmol/L 02/07/2023 3:24 AM [facility] Potassium, Plasma 4.8 3.7 - 4.8 mmol/L 02/07/2023 3:24 AM [facility] Chloride, Plasma 101 97 - 107 mmol/L 02/07/2023 3:24 AM [facility] CO2, Plasma 28 22 - 29 mmol/L 02/07/2023 3:24 AM [facility] Anion Gap 11 6 - 16 mmol/L 02/07/2023 3:24 AM [facility] Total Calcium, Plasma 8.4(L) 8.9 - 10.2 mg/dL 02/07/2023 3:24 AM [facility] Total Protein 5.3(L) 6.3 - 7.9 g/dL 02/07/2023 3:24 AM [facility] Albumin, Plasma 3.2(L) 3.5 - 5.2 g/dL 02/07/2023 3:24 AM [facility] AST, Plasma 42 10 - 50 U/L 02/07/2023 3:24 AM [facility] ALT, Plasma 26 10 - 50 U/L 02/07/2023 3:24 AM [facility] Alkaline Phosphatase, Plasma 132(H) 40 - 115 U/L 02/07/2023 3:24 AM [facility] Total Bilirubin, Plasma 0.2 0.2 - 1.1 mg/dL 02/07/2023 3:24 AM [facility] eGFRcr 16.3 mL/min/1.7 3m*2 02/07/2023 3:24 AM [facility] Comment:Reported eGFRcr in m L/min/1.73m2 is based the CKD-EPI 2020 equation that does not use a race coefficient. Blood Venous blood specimen / Unknown Venipuncture / Unknown 02/07/2023 2:32 AM EST 02/07/2023 2:43 AM EST us Darrin Mitchell MD LAB BLOOD ORDERABLES Final Res ult [facility] [address] [place] [address] * (ABNORMAL) CBC and Differential (02/07/2023 2:32 AM EST) WBC Count 5.25 3.70 - 10.30 10*3/uL LAB HEMATOLOGY METHOD 02/07/2023 2:54 AM EST [facility] RBC Count 3.74(L) 4.60 - 6.10 10*6/uL LAB HEMATOLOGY METHOD 02/07/2023 2:54 AM EST [facility] HGB 10.6(L) 13.7 - 17.5 g/dL LAB HEMATOLOGY METHOD 02/07/2023 2:54 AM EST [facility] HCT 32.8(L) 40.0 - 51.0 % LAB HEMATOLOGY METHOD 02/07/2023 2:54 AM EST [facility] Platelet Count 188 155 - 369 10*3/uL LAB HEMATOLOGY METHOD 02/07/2023 2:54 AM EST [facility] MCV 88 79 - 98 fL LAB HEMATOLOGY METHOD 02/07/2023 2:54 AM EST [facility] MCH 28.3 26.0 - 32.0 pg LAB HEMATOLOGY METHOD 02/07/2023 2:54 AM EST [facility] MCHC 32.3 30.7 - 35.5 g/dL LAB HEMATOLOGY METHOD 02/07/2023 2:54 AM EST [facility] RDW 13.5 11.5 - 14.5 % LAB HEMATOLOGY METHOD 02/07/2023 2:54 AM EST [facility] MPV 11.5 8.8 - 12.5 fL LAB HEMATOLOGY METHOD 02/07/2023 2:54 AM EST [facility] nRBC 0.0 <=0.0 per 100 WBCs LAB HEMATOLOGY METHOD 02/07/2023 2:54 AM EST [facility] Differential Type Automated LAB HEMATOLOGY METHOD 02/07/2023 2:54 AM EST [facility] Neutrophils % 49.0 % LAB HEMATOLOGY METHOD 02/07/2023 2:54 AM EST [facility] Lymphocytes % 37.0 % LAB HEMATOLOGY METHOD 02/07/2023 2:54 AM EST [facility] Monocytes % 10.0 % LAB HEMATOLOGY METHOD 02/07/2023 2:54 AM EST [facility] Eosinophils % 3.0 % LAB HEMATOLOGY METHOD 02/07/2023 2:54 AM EST [facility] Basophils % 0.0 % LAB HEMATOLOGY METHOD 02/07/2023 2:54 AM EST [facility] Immature Granulocytes % 1.0 % LAB HEMATOLOGY METHOD 02/07/2023 2:54 AM EST [facility] Neutrophils Absolute 2.61 1.60 - 6.10 10*3/uL LAB HEMATOLOGY METHOD 02/07/2023 2:54 AM EST [facility] Lymphocytes Absolute 1.92 1.20 - 3.90 10*3/uL LAB HEMATOLOGY METHOD 02/07/2023 2:54 AM EST [facility] Monocytes Absolute 0.52 0.30 - 0.90 10*3/uL LAB HEMATOLOGY METHOD 02/07/2023 2:54 AM EST [facility] Eosinophils Absolute 0.16 0.00 - 0.50 10*3/uL LAB HEMATOLOGY METHOD 02/07/2023 2:54 AM EST [facility] Basophils Absolute 0.01 0.00 - 0.10 10*3/uL LAB HEMATOLOGY METHOD 02/07/2023 2:54 AM EST [facility] Immature Granulocytes Absolute 0.03 0.00 - 0.06 10*3/uL LAB HEMATOLOGY METHOD 02/07/2023 2:54 AM EST [facility] Blood Venous blood specimen / Unknown Venipuncture / Unknown 02/07/2023 2:32 AM EST 02/07/2023 2:43 AM EST Narrative [facility]CARE LAB - 02/07/2023 2:54 AM EST Therapeutic decision making should be based on absolute values, rather than percentages. us Darrin Mitchell MD LAB BLOOD ORDERABLES Final Res ult [facility] [address] [place] [address] * (ABNORMAL) POCT glucose meter (02/06/2023 8:21 PM EST) [facility] POCT Glucose 162(H) 74 - 99 mg/dL 02/06/2023 8:22 PM EST [facility] Comment:Accuracy of a glucos e result obtained from a capillary whole blood specimen relies upon adequate, non-compromised capillary blood flow. If the capillary glucose result is not consistent with the patient's clinical signs and symptoms, glucose testing should be repeated with either an arterial or venous sample on the glucometer or sent to the main labortory for testing. Comment 02/06/2023 8:22 PM EST [facility] Glassworker ID Enedelia Sin 02/06/2023 8:22 PM EST [facility] LAB Device ID [id number] 02/06/2023 8:22 PM EST [facility] Specimen Type POC Capillary 02/06/2023 8:22 PM EST [facility] Blood Capillary blood specimen / Unknown 02/06/2023 8:21 PM EST 02/06/2023 8:22 PM EST us Darrin Mitchell MD LAB POINT OF CARE TE ST DOCKED DEVICE UNSOLICITED RESULTS Final Result Performing Organization Address City/State/[facility] Co de Phone Number [facility] [address] [place] [address] * (ABNORMAL) POCT glucose meter (02/06/2023 6:36 PM EST) [facility] POCT Glucose 155(H) 74 - 99 mg/dL 02/06/2023 6:38 PM EST [facility] Comment:Accuracy of a glucos e result obtained from a capillary whole blood specimen relies upon adequate, non-compromised capillary blood flow. If the capillary glucose result is not consistent with the patient's clinical signs and symptoms, glucose testing should be repeated with either an arterial or venous sample on the glucometer or sent to the main labortory for testing. Comment 02/06/2023 6:38 PM EST [facility] Glassworker ID Rom Carlisle 02/06/2023 6:38 PM EST [facility] Device ID [id number] 02/06/2023 6:38 PM EST [facility] Specimen Type POC Capillary 02/06/2023 6:38 PM EST [facility] Blood Capillary blood specimen / Unknown 02/06/2023 6:36 PM EST 02/06/2023 6:38 PM EST us Darrin Mitchell MD LAB POINT OF CARE TE ST DOCKED DEVICE UNSOLICITED RESULTS Final Result [facility] [address] [place] [address] * US Renal Complete (02/06/2023 4:28 PM EST) Anatomical Region Laterality Modality Kidney Ultrasound Impressions 02/06/2023 4:33 PM EST No hydronephrosis. CRITICAL RESULT: No. COMMUNICATION: Per this written report. Drafted by Kamila Mackenzie MD on 02/06/2023 4:32 PM Final report signed by Kamila Mackenzie MD on 02/06/2023 4:33 PM Narrative 02/06/2023 4:33 PM EST CLINICAL INDICATION: Kidney injury. TECHNIQUE: Multiplanar mac scale sonographic imaging of the kidneys. COMPARISON: None. FINDINGS: Right Kidney: The right kidney is normal in size and echogenicity measuring 10.0 cm. No hydronephrosis. A subcentimeter cystic structure in the right kidney No obvious calculi. Left Kidney: The left kidney is normal in size and echogenicity measuring 10.7 cm. No hydronephrosis. No contour deforming masses. No obvious calculi. Bladder: Partially decompressed without obvious abnormality. Procedure Note Kamila Mackenzie MD - 02/06/2023 CLINICAL INDICATION: Kidney injury. TECHNIQUE: Multiplanar mac scale sonographic imaging of the kidneys. COMPARISON: None. FINDINGS: Right Kidney: The right kidney is normal in size and echogenicitymeasuring 10.0 cm. No hydronephrosis. A subcentimeter cystic structure inthe right kidney No obvious calculi. Left Kidney: The left kidney is normal in size and echogenicity [id number] cm. No hydronephrosis. No contour deforming masses. No obviouscalculi. Bladder: Partially decompressed without obvious abnormality. IMPRESSION: No hydronephrosis. CRITICAL RESULT: No. COMMUNICATION: Per this written report. Drafted by Kamila Mackenzie MD on 02/06/2023 4:32 PM Final report signed by Kamila Mackenzie MD on 02/06/2023 4:33 PM us Darrin Mitchell MD IMG US PROCEDURES Final Result * (ABNORMAL) POCT glucose meter (02/06/2023 1:44 PM EST) Pathologist [facility] POCT Glucose 227(H) 74 - 99 mg/dL 02/06/2023 1:46 PM EST [facility] Comment:Accuracy of [...] to the main labortory for testing. Comment 02/06/2023 1:46 PM EST [facility] Glassworker ID Uzma Joel Landry 023 1:46 PM EST [facility] Device ID [id number] 02/06/2023 1:46 PM EST [employer] [facility] Specimen Type POC Capillary 02/06/2023 1:46 PM EST [facility] Blood Capillary blood specimen / Unknown 02/06/2023 1:44 PM EST 02/06/2023 1:46 PM EST Darrin Mitchell MD LAB POINT OF CARE TE ST DOCKED DEVICE UNSOLICITED RESULTS Final Result Performing Organization Address City/State/[facility] Co de Phone Number [facility] [address] [place] [address] * (ABNORMAL) POCT glucose meter (02/06/2023 9:11 AM EST) [facility] POCT Glucose 125(H) 74 - 99 mg/dL 02/06/2023 9:13 AM EST [facility] Comment:Accuracy of a glucos e result obtained from a capillary whole blood specimen relies upon adequate, non-compromised capillary blood flow. If the capillary glucose result is not consistent with the patient's clinical signs and symptoms, glucose testing should be repeated with either an arterial or venous sample on the glucometer or sent to the main labortory for testing. Comment 02/06/2023 9:13 AM EST [facility] Glassworker ID Uzma Joel 023 9:13 AM EST [facility] Device ID [id number] 02/06/2023 9:13 AM EST [facility] Specimen Type POC Capillary 02/06/2023 9:13 AM EST [facility] Blood Capillary blood specimen / Unknown 02/06/2023 9:11 AM EST 02/06/2023 9:13 AM EST Darrin Mitchell MD LAB POINT OF CARE TE ST DOCKED DEVICE UNSOLICITED RESULTS Final Result Performing Organization Address [facility] Co de Phone Number [facility] [address] [place] [address] * Magnesium (02/06/2023 5:52 AM EST) Pathologist [facility] Magnesium, Plasma 1.9 1.9 - 2.4 mg/dL 02/06/2023 6:38 AM EST [facility] Blood Venous blood specimen / Unknown Venipuncture / Unknown 02/06/2023 5:52 AM EST 02/06/2023 6:06 AM EST us Darrin Mitchell MD LAB BLOOD ORDERABLES Final Res ult Performing Organization Address City/[facility] Co de Phone Number [facility] [address] [place] [address] * (ABNORMAL) Comprehensive Metabolic Panel, Plasma (02/06/2023 5:52 AM EST) Glucose, Plasma 117(H) 74 - 99 mg/dL 02/06/2023 6:38 AM EST [facility] BUN, Plasma 83(H) 7 - 21 mg/dL 02/06/2023 6:38 AM EST [facility] Creatinine, Plasma 3.49(H) 0.80 - 1.30 mg/dL 02/06/2023 6:38 AM EST [facility] BUN/Creatinine Ratio 24 02/06/2023 6:38 AM EST [facility] Sodium, Plasma 143 136 - 145 mmol/L 02/06/2023 6:38 AM EST [facility] Potassium, Plasma 3.8 3.7 - 4.8 mmol/L 02/06/2023 6:38 AM EST [facility] Chloride, Plasma 109(H) 97 - 107 mmol/L 02/06/2023 6:38 AM EST [facility] CO2, Plasma 24 22 - 29 mmol/L 02/06/2023 6:38 AM EST [facility] Anion Gap 10 6 - 16 mmol/L 02/06/2023 6:38 AM EST [facility] Total Calcium, Plasma 6.9(L) 8.9 - 10.2 mg/dL 02/06/2023 6:38 AM EST [facility] Total Protein 4.3(L) 6.3 - 7.9 g/dL 02/06/2023 6:38 AM EST [facility] Albumin, Plasma 2.5(L) 3.5 - 5.2 g/dL 02/06/2023 6:38 AM EST [facility] AST, Plasma 32 10 - 50 U/L 02/06/2023 6:38 AM EST [facility] ALT, Plasma 21 10 - 50 U/L 02/06/2023 6:38 AM EST [facility] Alkaline Phosphatase, Plasma 92 40 - 115 U/L 02/06/2023 6:38 AM EST [facility] Total Bilirubin, Plasma 0.2 0.2 - 1.1 mg/dL 02/06/2023 6:38 AM EST [facility] eGFRcr 19.8 mL/min/1.7 3m*2 02/06/2023 6:38 AM EST [facility] Comment:Reported eGFRcr in m L/min/1.73m2 is based the CKD-EPI 2020 equation that does not use a race coefficient. Blood Venous blood specimen / Unknown Venipuncture / Unknown 02/06/2023 5:52 AM EST 02/06/2023 6:06 AM EST us Darrin Mitchell MD LAB BLOOD ORDERABLES Final Res ult [facility] [address] [place] [id number] * (ABNORMAL) CBC and Differential (02/06/2023 5:52 AM EST) WBC Count 4.25 3.70 - 10.30 10*3/uL LAB HEMATOLOGY METHOD 02/06/2023 6:15 AM EST [facility] RBC Count 3.33(L) 4.60 - 6.10 10*6/uL LAB HEMATOLOGY METHOD 02/06/2023 6:15 AM EST [facility] HGB 9.4(L) 13.7 - 17.5 g/dL LAB HEMATOLOGY METHOD 02/06/2023 6:15 AM EST [facility] HCT 29.4(L) 40.0 - 51.0 % LAB HEMATOLOGY METHOD 02/06/2023 6:15 AM EST [facility] Platelet Count 156 155 - 369 10*3/uL LAB HEMATOLOGY METHOD 02/06/2023 6:15 AM EST [facility] MCV 88 79 - 98 fL LAB HEMATOLOGY METHOD 02/06/2023 6:15 AM EST [facility] MCH 28.2 26.0 - 32.0 pg LAB HEMATOLOGY METHOD 02/06/2023 6:15 AM EST [facility] MCHC 32.0 30.7 - 35.5 g/dL LAB HEMATOLOGY METHOD 02/06/2023 6:15 AM EST [facility] RDW 13.8 11.5 - 14.5 % LAB HEMATOLOGY METHOD 02/06/2023 6:15 AM EST [facility] MPV 11.4 8.8 - 12.5 fL LAB HEMATOLOGY METHOD 02/06/2023 6:15 AM EST [facility] nRBC 0.0 <=0.0 per 100 WBCs LAB HEMATOLOGY METHOD 02/06/2023 6:15 AM EST [facility] Differential Type Automated LAB HEMATOLOGY METHOD 02/06/2023 6:15 AM EST [facility] Neutrophils % 48.0 % LAB HEMATOLOGY METHOD 02/06/2023 6:15 AM EST [facility] Lymphocytes % 36.0 % LAB HEMATOLOGY METHOD 02/06/2023 6:15 AM EST [facility] Monocytes % 12.0 % LAB HEMATOLOGY METHOD 02/06/2023 6:15 AM EST [facility] Eosinophils % 3.0 % LAB HEMATOLOGY METHOD 02/06/2023 6:15 AM EST [facility] Basophils % 0.0 % LAB HEMATOLOGY METHOD 02/06/2023 6:15 AM EST [facility] Immature Granulocytes % 1.0 % LAB HEMATOLOGY METHOD 02/06/2023 6:15 AM EST [facility] Neutrophils Absolute 2.07 1.60 - 6.10 10*3/uL LAB HEMATOLOGY METHOD 02/06/2023 6:15 AM EST [facility] Lymphocytes Absolute 1.53 1.20 - 3.90 10*3/uL LAB HEMATOLOGY METHOD 02/06/2023 6:15 AM EST [facility] Monocytes Absolute 0.50 0.30 - 0.90 10*3/uL LAB HEMATOLOGY METHOD 02/06/2023 6:15 AM EST [facility] Eosinophils Absolute 0.12 0.00 - 0.50 10*3/uL LAB HEMATOLOGY METHOD 02/06/2023 6:15 AM EST [facility] Basophils Absolute 0.01 0.00 - 0.10 10*3/uL LAB HEMATOLOGY METHOD 02/06/2023 6:15 AM EST [facility] Immature Granulocytes Absolute 0.02 0.00 - 0.06 10*3/uL LAB HEMATOLOGY METHOD 02/06/2023 6:15 AM EST [facility] Blood Venous blood specimen / Unknown Venipuncture / Unknown 02/06/2023 5:52 AM EST 02/06/2023 6:07 AM EST Narrative [facility] - 02/06/2023 6:15 AM EST Therapeutic decision making should be based on absolute values, rather than percentages. Darrin Mitchell MD LAB BLOOD ORDERABLES Final Res ult Performing Organization Address City/State/[facility] Co de Phone Number [facility] [address] [place] [address] * (ABNORMAL) POCT glucose meter (02/05/2023 8:41 PM EST) POCT Glucose 185(H) 74 - 99 mg/dL 02/05/2023 8:43 PM EST [facility] Comment:Accuracy of a glucos e result obtained from a capillary whole blood specimen relies upon adequate, non-compromised capillary blood flow. If the capillary glucose result is not consistent with the patient's clinical signs and symptoms, glucose testing should be repeated with either an arterial or venous sample on the glucometer or sent to the main labortory for testing. Comment 02/05/2023 8:43 PM EST [facility] Glassworker ID Isaura Vargas 02/05/2023 8:43 PM EST [facility] Device ID [id number] 02/05/2023 8:43 PM EST [facility] Specimen Type POC Capillary 02/05/2023 8:43 PM EST [facility] Blood Capillary blood specimen / Unknown 02/05/2023 8:41 PM EST 02/05/2023 8:43 PM EST us Darrin Mitchell MD LAB POINT OF CARE TE ST DOCKED DEVICE UNSOLICITED RESULTS Final Result Performing Organization Address [facility] Co de Phone Number [facility] [address] [place] [address] * (ABNORMAL) POCT glucose meter (02/05/2023 5:57 PM EST) Pathologist [facility] POCT Glucose 240(H) 74 - 99 mg/dL 02/05/2023 5:59 PM EST [facility] Comment:Accuracy of a glucos e result obtained from a capillary whole blood specimen relies upon adequate, non-compromised capillary blood flow. If the capillary glucose result is not consistent with the patient's clinical signs and symptoms, glucose testing should be repeated with either an arterial or venous sample on the glucometer or sent to the main labortory for testing. Comment 02/05/2023 5:59 PM EST [facility] Glassworker ID Everett Man 02/05/2023 5:59 PM EST [facility] Device ID [id number] 02/05/2023 5:59 PM EST [facility] Specimen Type POC Capillary 02/05/2023 5:59 PM EST [facility] Blood Capillary blood specimen / Unknown 02/05/2023 5:57 PM EST 02/05/2023 5:59 PM EST us Darrin Mitchell MD LAB POINT OF CARE TE ST DOCKED DEVICE UNSOLICITED RESULTS Final Result Performing Organization Address [facility] de Phone Number [facility] [address] [place] [address] * Urinalysis Microscopic Examination (02/05/2023 11:31 AM EST) Urine Urine specimen obtained by clean catch procedure / Unknown Non-blood Collection / Unknown 02/05/2023 11:31 AM EST 02/05/2023 11:47 AM EST Cary Restrepo MD LAB URINE ORDERABLES Final Res ult Performing Organization Address City/[facility]/ZIP Co de Phone Number [facility] [address] [place] [address] * Sodium, urine, random (02/05/2023 11:31 AM EST) Sodium, Urine 113 mmol/L 02/05/2023 12:29 PM EST [facility] Urine Urine specimen obtained by clean catch procedure / Unknown Non-blood Collection / Unknown 02/05/2023 11:31 AM EST 02/05/2023 11:56 AM EST us Cary Restrepo MD LAB URINE ORDERABLES Final Res ult Performing Organization Address [facility]/ZIP Co de Phone Number [facility] [address] [place] [address] * Protein, Random, Urine with Creatinine (02/05/2023 11:31 AM EST) Protein, Urine 104 mg/dL 02/05/2023 12:29 PM EST [facility] Creatinine, Urine 38 mg/dL 02/05/2023 12:29 PM EST [facility] Protein/Creati nine Ratio 2.7 mg/mg Creat 02/05/2023 12:29 PM EST [facility] Urine Urine specimen obtained by clean catch procedure / Unknown Non-blood Collection / Unknown 02/05/2023 11:31 AM EST 02/05/2023 11:56 AM EST us Cary Restrepo MD LAB URINE ORDERABLES Final Res ult Performing Organization Address [facility] Phone Number [facility] [address] [place] [address] * (ABNORMAL) Urinalysis with reflex microscopic (02/05/2023 11:31 AM EST) Color, Urine Yellow LAB URINALYSIS - AUTOMATED METHOD 02/05/2023 12:07 PM EST [facility] Clarity, Urine Clear LAB URINALYSIS - AUTOMATED METHOD 02/05/2023 12:07 PM EST [facility] Spec [place], Urine 1.014 <=1.005 to >=1.030 LAB URINALYSIS - AUTOMATED METHOD 02/05/2023 12:07 PM EST [facility] pH, Urine 6.0 4.5 to 8 LAB URINALYSIS - AUTOMATED METHOD 02/05/2023 12:07 PM EST [facility] Protein, Urine 100(A) Negative mg/dL LAB URINALYSIS - AUTOMATED METHOD 02/05/2023 12:07 PM [facility] Glucose, Urine Negative Negative mg/dL LAB URINALYSIS - AUTOMATED METHOD 02/05/2023 12:07 PM EST [facility] Ketones, Urine Negative Negative mg/dL LAB URINALYSIS - AUTOMATED METHOD 02/05/2023 12:07 PM [facility] Blood, Urine Small(A) Negative LAB URINALYSIS - AUTOMATED METHOD 02/05/2023 12:07 PM EST [facility] Bilirubin, Urine Negative Negative LAB URINALYSIS - AUTOMATED METHOD 02/05/2023 12:07 PM [facility] Urobilinogen, Urine 0.2 0.2 to 1.0 mg/dL LAB URINALYSIS - AUTOMATED METHOD 02/05/2023 12:07 PM [facility] Leukocytes, Urine Negative Negative LAB URINALYSIS - AUTOMATED METHOD 02/05/2023 12:07 PM [facility] Nitrite, Urine Negative Negative LAB URINALYSIS - AUTOMATED METHOD 02/05/2023 12:07 PM [facility] RBC, Urine 2 0 to 3 /HPF LAB URINALYSIS - AUTOMATED METHOD 02/05/2023 12:07 PM [facility] Comment:This result was prev iously suppressed from the chart. WBC, Urine 0 - 5 0 to 5 /HPF LAB URINALYSIS - AUTOMATED METHOD 02/05/2023 12:07 PM EST [facility] Comment:This result was prev iously suppressed from the chart. Squamous Epithelial Cells 0 - 2 0 to 5 /HPF LAB URINALYSIS - AUTOMATED METHOD 02/05/2023 12:07 PM EST [facility] Comment:This result was prev iously suppressed from the chart. Hyaline Casts 0 - 2 0 to 5 /LPF LAB URINALYSIS - AUTOMATED METHOD 02/05/2023 12:07 PM [facility] Comment:This result was prev iously suppressed from the chart. Bacteria, Urine Negative Negative LAB URINALYSIS - AUTOMATED METHOD 02/05/2023 12:07 PM [facility] Comment:This result was prev iously suppressed from the chart. Urine Urine specimen obtained by clean catch procedure / Unknown Non-blood Collection / Unknown 02/05/2023 11:31 AM EST 02/05/2023 11:47 AM EST us Cary Restrepo MD LAB URINE ORDERABLES Final Res ult Performing Organization Address City/[facility]/ZIP Co de Phone Number [facility] [address] [place] [address] * POCT glucose meter (02/05/2023 11:21 AM EST) POCT Glucose 78 74 - 99 mg/dL 02/05/2023 11:25 AM EST [facility] Comment:Accuracy of a glucos e result obtained from a capillary whole blood specimen relies upon adequate, non-compromised capillary blood flow. If the capillary glucose result is not consistent with the patient's clinical signs and symptoms, glucose testing should be repeated with either an arterial or venous sample on the glucometer or sent to the main labortory for testing. Comment 02/05/2023 11:25 AM EST [facility] Glassworker ID SanzLeah hayes 02/05/2023 11:25 AM EST [facility] Device ID [id number] 02/05/2023 11:25 AM EST [facility] Specimen Type POC Capillary 02/05/2023 11:25 AM EST [facility] Blood Capillary blood specimen / Unknown 02/05/2023 11:21 AM EST 02/05/2023 11:25 AM EST us Darrin Mitchell MD LAB POINT OF CARE TE ST DOCKED DEVICE UNSOLICITED RESULTS Final Result Performing Organization Address City/[facility] Co de Phone Number [facility] [address] [place] [address] * POCT glucose meter (02/05/2023 7:33 AM EST) Pathologist [facility] POCT Glucose 89 74 - 99 mg/dL 02/05/2023 7:40 AM EST [facility] Comment:Accuracy of a glucos e result obtained from a capillary whole blood specimen relies upon adequate, non-compromised capillary blood flow. If the capillary glucose result is not consistent with the patient's clinical signs and symptoms, glucose testing should be repeated with either an arterial or venous sample on the glucometer or sent to the main labortory for testing. Comment 02/05/2023 7:40 AM EST [facility] Glassworker ID Leah Sanz 02/05/2023 7:40 AM EST [facility] Device ID [id number] 02/05/2023 7:40 AM EST [facility] Specimen Type POC Capillary 02/05/2023 7:40 AM EST [facility] Blood Capillary blood specimen / Unknown 02/05/2023 7:33 AM EST 02/05/2023 7:40 AM EST Cary Restrepo MD LAB POINT OF CARE TE ST DOCKED DEVICE UNSOLICITED RESULTS Final Result Performing Organization Address [facility] de Phone Number [facility] [address] [place] [address] * Anti Xa Level Unfractionated Heparin (02/05/2023 5:20 AM EST) Anti Xa Level Unfractionated Heparin 0.44 IU/mL 02/05/2023 5:49 AM EST [facility] Blood Venous blood specimen / Unknown Venipuncture / Unknown 02/05/2023 5:20 AM EST 02/05/2023 5:28 AM EST Narrative [facility] - 02/05/2023 5:49 AM EST Therapeutic Range: UFH Full Dose and ACS/TX protocols*: 0.30 - 0.70 IU/mL UFH Low Dose protocol*: 0.25 - 0.50 IU/mL UFH prophylaxis: Not established Cary Restrepo MD LAB BLOOD ORDERABLES Final Res ult Performing Organization Address City/[facility] Co de Phone Number [facility] [address] [place] [address] * (ABNORMAL) CBC W/O differential - HIT surveillance (02/05/2023 5:20 AM EST) WBC Count 6.24 3.70 - 10.30 10*3/uL LAB HEMATOLOGY METHOD 02/05/2023 5:32 AM EST [facility] RBC Count 4.02(L) 4.60 - 6.10 10*6/uL LAB HEMATOLOGY METHOD 02/05/2023 5:32 AM EST [facility] HGB 11.3(L) 13.7 - 17.5 g/dL LAB HEMATOLOGY METHOD 02/05/2023 5:32 AM EST [facility] HCT 35.0(L) 40.0 - 51.0 % LAB HEMATOLOGY METHOD 02/05/2023 5:32 AM EST [facility] Platelet Count 190 155 - 369 10*3/uL LAB HEMATOLOGY METHOD 02/05/2023 5:32 AM EST [facility] MCV 87 79 - 98 fL LAB HEMATOLOGY METHOD 02/05/2023 5:32 AM EST [facility] MCH 28.1 26.0 - 32.0 pg LAB HEMATOLOGY METHOD 02/05/2023 5:32 AM EST [facility] MCHC 32.3 30.7 - 35.5 g/dL LAB HEMATOLOGY METHOD 02/05/2023 5:32 AM EST [facility] RDW 13.9 11.5 - 14.5 % LAB HEMATOLOGY METHOD 02/05/2023 5:32 AM EST [facility] MPV 11.3 8.8 - 12.5 fL LAB HEMATOLOGY METHOD 02/05/2023 5:32 AM EST [facility] nRBC 0.0 <=0.0 per 100 WBCs LAB HEMATOLOGY METHOD 02/05/2023 5:32 AM EST [facility] Blood Venous blood specimen / Unknown Venipuncture / Unknown 02/05/2023 5:20 AM EST 02/05/2023 5:29 AM EST us Cary Restrepo MD LAB BLOOD ORDERABLES Final Res ult [facility] [address] [place] [address] * (ABNORMAL) Phosphorus (02/05/2023 5:20 AM EST) Phosphorus, Plasma 4.6(H) 2.5 - 4.5 mg/dL 02/05/2023 6:04 AM EST [facility] Blood Venous blood specimen / Unknown Venipuncture / Unknown 02/05/2023 5:20 AM EST 02/05/2023 5:34 AM EST us Cary Restrepo MD LAB BLOOD ORDERABLES Final Res ult [facility] [address] [place] [address] * Magnesium (02/05/2023 5:20 AM EST) Magnesium, Plasma 2.2 1.9 - 2.4 mg/dL 02/05/2023 6:04 AM EST [facility] Blood Venous blood specimen / Unknown Venipuncture / Unknown 02/05/2023 5:20 AM EST 02/05/2023 5:34 AM EST us Cary Restrepo MD LAB BLOOD ORDERABLES Final Res ult [facility] [address] [place] [address] * (ABNORMAL) Basic metabolic panel (02/05/2023 5:20 AM EST) Glucose, Plasma 103(H) 74 - 99 mg/dL 02/05/2023 6:04 AM EST [facility] BUN, Plasma 92(H) 7 - 21 mg/dL 02/05/2023 6:04 AM EST [facility] Creatinine, Plasma 4.01(H) 0.80 - 1.30 mg/dL 02/05/2023 6:04 AM EST [facility] BUN/Creatinine Ratio 23 02/05/2023 6:04 AM EST [facility] Sodium, Plasma 140 136 - 145 mmol/L 02/05/2023 6:04 AM EST [facility] Potassium, Plasma 4.3 3.7 - 4.8 mmol/L 02/05/2023 6:04 AM EST [facility] Chloride, Plasma 104 97 - 107 mmol/L 02/05/2023 6:04 AM EST [facility] CO2, Plasma 25 22 - 29 mmol/L 02/05/2023 6:04 AM EST [facility] Anion Gap 11 6 - 16 mmol/L 02/05/2023 6:04 AM EST [facility] Total Calcium, Plasma 8.4(L) 8.9 - 10.2 mg/dL 02/05/2023 6:04 AM EST [facility] eGFRcr 16.8 mL/min/1.7 3m*2 02/05/2023 6:04 AM EST [facility] Comment:Reported eGFRcr in m L/min/1.73m2 is based the CKD-EPI 2020 equation that does not use a race coefficient. Blood Venous blood specimen / Unknown Venipuncture / Unknown 02/05/2023 5:20 AM EST 02/05/2023 5:34 AM EST us Cary Restrepo MD LAB BLOOD ORDERABLES Final Res ult Performing Organization Address [facility] de Phone Number [facility] [address] [place] [address] * (ABNORMAL) POCT glucose meter (02/05/2023 3:31 AM EST) POCT Glucose 195(H) 74 - 99 mg/dL 02/05/2023 3:33 AM EST [facility] Comment:Accuracy of a glucos e result obtained from a capillary whole blood specimen relies upon adequate, non-compromised capillary blood flow. If the capillary glucose result is not consistent with the patient's clinical signs and symptoms, glucose testing should be repeated with either an arterial or venous sample on the glucometer or sent to the main labortory for testing. Comment 02/05/2023 3:33 AM EST [facility] Glassworker ID Janina Hutton 023 3:33 AM EST [facility] Device ID [id number] 02/05/2023 3:33 AM EST [facility] Specimen Type POC Capillary 02/05/2023 3:33 AM EST [facility] Blood Capillary blood specimen / Unknown 02/05/2023 3:31 AM EST 02/05/2023 3:33 AM EST us Cary Restrepo MD LAB POINT OF CARE TE ST DOCKED DEVICE UNSOLICITED RESULTS Final Result Performing Organization Address [facility] Co de Phone Number [facility] [address] [place] [address] * POCT glucose meter (02/05/2023 3:11 AM EST) POCT Glucose 76 74 - 99 mg/dL 02/05/2023 3:14 AM EST [facility] Comment:Accuracy of a glucos e result obtained from a capillary whole blood specimen relies upon adequate, non-compromised capillary blood flow. If the capillary glucose result is not consistent with the patient's clinical signs and symptoms, glucose testing should be repeated with either an arterial or venous sample on the glucometer or sent to the main labortory for testing. Comment 02/05/2023 3:14 AM EST [facility] Glassworker ID Janina Hutton 023 3:14 AM EST [facility] Device ID [id number] 02/05/2023 3:14 AM EST [facility] Specimen Type POC Capillary 02/05/2023 3:14 AM EST [facility] Blood Capillary blood specimen / Unknown 02/05/2023 3:11 AM EST 02/05/2023 3:14 AM EST us Cary Restrepo MD LAB POINT OF CARE TE ST DOCKED DEVICE UNSOLICITED RESULTS Final Result Performing Organization Address City/[facility]/ZIP Co de Phone Number [facility] [address] [place] [address] * Blood Culture (Aerobic/Anaerobet Set) (02/04/2023 9:59 PM EST) Culture No growth at day 5 MIKE 02/09/2023 11:01 PM EST [facility] Blood Structure of antecubital vein / Unknown Venipuncture / Unknown 02/04/2023 9:59 PM EST 02/04/2023 10:16 PM EST us Cary Restrepo MD LAB MICROBIOLOGY - GENERAL ORD ERABLES Final Result [facility] [address] [place] [address] * Anti Xa Level Unfractionated Heparin (02/04/2023 9:59 PM EST) Anti Xa Level Unfractionated Heparin 0.40 IU/mL 02/04/2023 10:17 PM EST [facility] Blood Venous blood specimen / Unknown Venipuncture / Unknown 02/04/2023 9:59 PM EST 02/04/2023 10:02 PM EST Narrative [facility] - 02/04/2023 10:17 PM EST Therapeutic Range: UFH Full Dose and ACS/TX protocols*: 0.30 - 0.70 IU/mL UFH Low Dose protocol*: 0.25 - 0.50 IU/mL UFH prophylaxis: Not established us Cary Restrepo MD LAB BLOOD ORDERABLES Final Res ult Performing Organization Address City/[facility]/ZIP Co de Phone Number [facility] [address] [place] [address] * Blood Culture (Aerobic/Anaerobet Set) (02/04/2023 8:06 PM EST) Culture No growth at day 5 MIKE 02/09/2023 9:01 PM EST [facility] Blood Structure of antecubital vein / Unknown Venipuncture / Unknown 02/04/2023 8:06 PM EST 02/04/2023 8:25 PM EST us Cary Restrepo MD LAB MICROBIOLOGY - GENERAL ORD ERABLES Final Result Performing Organization Address [facility] Co de Phone Number [facility] [address] [place] [address] * EKG now - STAT (adult) (02/04/2023 7:50 PM EST) EKG DIAGNOSIS CLASS Abnormal MUSE ECG Ventricular Rate 92 BPM MUSE ECG Atrial Rate 92 BPM MUSE ECG [place] Interval 130 ms MUSE ECG QRSD Interval 94 ms MUSE ECG QT Interval 360 ms MUSE ECG QTC Interval 445 ms MUSE ECG P [place] 48 degrees MUSE ECG R [place] -24 degrees MUSE ECG T Wave [place] 157 degrees MUSE ECG Diagnosis Normal sinus rhythm MUSE ECG Diagnosis Left ventricular hypertrophy MUSE ECG Diagnosis with repolarization abnormality MUSE ECG Diagnosis ( MUSE ECG Diagnosis R in aVL MUSE ECG Diagnosis , MUSE ECG Diagnosis Traver product MUSE ECG Diagnosis ) MUSE ECG Diagnosis Confirmed by Heather Dan ([id number]) on 02/05/2023 10:09:21 AM MUSE ECG 02/04/2023 7:50 PM EST 02/05/2023 10:09 AM EST us Cary Restrepo MD ECG ORDERABLES Final Result Performing Organization Address City/[facility] Co de Phone Number MUSE ECG * (ABNORMAL) POCT glucose meter (02/04/2023 7:48 PM EST) [facility] POCT Glucose 144(H) 74 - 99 mg/dL 02/04/2023 7:49 PM EST [facility] Comment:Accuracy of [...] to the main labortory for testing. Comment 02/04/2023 7:49 PM EST [facility] Glassworker ID Tyler Burks 02/04/2023 7:49 PM EST [facility] Device ID [id number] 02/04/2023 7:49 PM EST [facility] Specimen Type POC Capillary 02/04/2023 7:49 PM EST [facility] Blood Capillary blood specimen / Unknown 02/04/2023 7:48 PM EST 02/04/2023 7:49 PM EST Cary Restrepo MD LAB POINT OF CARE TE ST DOCKED DEVICE UNSOLICITED RESULTS Final Result Performing Organization Address City/State/[facility] Co de Phone Number [facility] [address] [place] [address] * (ABNORMAL) POCT glucose meter (02/04/2023 5:58 PM EST) [facility] POCT Glucose 179(H) 74 - 99 mg/dL 02/04/2023 6:00 PM EST [facility] Comment:Accuracy of [...] to the main labortory for testing. Comment 02/04/2023 6:00 PM EST [facility] Glassworker ID Fatuma Metzger 02/04/2023 6:00 PM EST [facility] Device ID [id number] 02/04/2023 6:00 PM EST [facility] Specimen Type POC Capillary 02/04/2023 6:00 PM EST [facility] Blood Capillary blood specimen / Unknown 02/04/2023 5:58 PM EST 02/04/2023 6:00 PM EST Cary Restrepo MD LAB POINT OF CARE TE ST DOCKED DEVICE UNSOLICITED RESULTS Final Result Performing Organization Address [facility] de Phone Number [facility] [address] [place] [address] * (ABNORMAL) POCT glucose meter (02/04/2023 3:58 PM EST) [facility] POCT Glucose 189(H) 74 - 99 mg/dL 02/04/2023 3:59 PM EST [facility] Comment:Accuracy of [...] to the main labortory for testing. Comment 02/04/2023 3:59 PM EST [facility] Glassworker ID Fatuma Metzger 02/04/2023 3:59 PM EST [facility] Device ID [id number] 02/04/2023 3:59 PM EST [facility] Specimen Type POC Capillary 02/04/2023 3:59 PM EST [facility] Blood Capillary blood specimen / Unknown 02/04/2023 3:58 PM EST 02/04/2023 3:59 PM EST us Cary Restrepo MD LAB POINT OF CARE TE ST DOCKED DEVICE UNSOLICITED RESULTS Final Result Performing Organization Address [facility] Phone Number [facility] [address] [place] [address] * Anti Xa Level Unfractionated Heparin (02/04/2023 3:46 PM EST) [facility] Anti Xa Level Unfractionated Heparin 0.53 IU/mL 02/04/2023 4:30 PM EST [facility] Blood Venous blood specimen / Unknown Venipuncture / Unknown 02/04/2023 3:46 PM EST 02/04/2023 4:07 PM EST Narrative [facility] - 02/04/2023 4:30 PM EST Therapeutic Range: UFH Full Dose and ACS/TX protocols*: 0.30 - 0.70 IU/mL UFH Low Dose protocol*: 0.25 - 0.50 IU/mL UFH prophylaxis: Not established Cary Restrepo MD LAB BLOOD ORDERABLES Final Res ult Performing Organization Address City/[facility] Co de Phone Number [facility] [address] [place] [address] * (ABNORMAL) POCT glucose meter (02/04/2023 1:02 PM EST) POCT Glucose 261(H) 74 - 99 mg/dL 02/04/2023 1:03 PM EST [facility] LAB Comment:Accuracy of a glucos e result obtained from a capillary whole blood specimen relies upon adequate, non-compromised capillary blood flow. If the capillary glucose result is not consistent with the patient's clinical signs and symptoms, glucose testing should be repeated with either an arterial or venous sample on the glucometer or sent to the main labortory for testing. Comment 02/04/2023 1:03 PM EST [facility] LAB Glassworker ID Fatuma Metzger 02/04/2023 1:03 PM EST [facility] Device ID [id number] 02/04/2023 1:03 PM EST [facility] LAB Specimen Type POC Capillary 02/04/2023 1:03 PM EST [facility] Blood Capillary blood specimen / Unknown 02/04/2023 1:02 PM EST 02/04/2023 1:03 PM EST Cary Restrepo MD LAB POINT OF CARE TE ST DOCKED DEVICE UNSOLICITED RESULTS Final Result Performing Organization Address City/[facility] Co de Phone Number [facility] [address] [place] [address] * ECHO, ADULT TRANSTHORACIC COMPLETE W/ CONTRAST (02/04/2023 12:05 PM EST) BSA 2.08 m2 [facility] Height 175.3 [facility] Weight 92.5 [facility] LVIDd 58 mm [facility] LVIDs 46 mm [facility] IVSd 13 mm [facility] LVPWd 12 mm [facility] LV MASS(C)D 314 g [facility] LV RWT 0.43 mm WILLIAM ISC[facility] LV V1 VTI 20.4 cm WILLIAM ISC[facility] MV E Vmax 127.0 cm/s WILLIAM ISCV MV A Vmax 77.1 cm/s WILLIAM ISC[facility] MV E/A 1.6 cm/s [facility]IAM ISC[facility] LA dimension 42 mm WILLIAM ISCV RV s' Yinka 11.2 cm/s WILLIAM ISCV AI Vmax 332.5 cm/s WILLIAM ISCV AI max PG 44 mmHg WILLIAM ISC[facility] AI dec slope 268 cm/s2 WILLIAM ISCV LV V1 Vmax 114.5 cm/s WILLIAM ISCV Ao V2 VTI 38.8 cm WILLIAM ISCV Ao mean PG 12 mmHg WILLIAM ISCV Ao V2 Vmax 233.7 cm/s WILLIAM ISCV Ao max PG 22 mmHg WILLIAM ISCV AV VTI Index 0.53 WILLIAM ISCV MR Vmax 536.0 cm/s WILLIAM ISCV MR max PG 115 mmHG WILLIAM ISCV MV dec time 160 ms WILLIAM ISC[facility] MV P1/2t 46 ms [facility]IAM ISCV MVA(P1/2t) 4.7 cm2 [facility] ISC[facility] Asc Ao Diam 29 mm WILLIAM ISCV LV mean PG 2.5 mmHG WILLIAM ISCV LV V1 mean 75.9 cm/sec WILLIAM ISCV LV max PG 5.3 mmHg WILLIAM ISCV AV-pr VR 0.5 WILLIAM ISCV Ao V2 mean 156.0 cm/s WILLIAM ISC[facility] Baseline Systolic BP 155 WILLIAM ISCV Baseline Diastolic BP 96 WILLIAM ISCV Heart Rate 84 WILLIAM ISCV Ao Root Diam 35 mm WILLIAM ISCV LVOT diam 24 mm WILLIAM ISC[facility] LVOT AREA 4.5 cm2 [facility]SC[facility] SV(LVOT) 92 mL [facility] ISC[facility] MATEO(I,D) 2.4 cm2 [facility]SC[facility] MATEO(VTI)/BSA_ph l 1.1 cm2/m2 [facility]SC[facility] PA acc time 80 msec WILL[facility]SC[facility] mean PAP 43 mmHg WILLIAM [facility]SC[facility] PA KS(ACCEL) 41.0 mmHg WILLIAM ISCV PA acc slope 984.7 cm/s2 WILLIAM ISCV LAV(MOD-4ch) 50 mL WILLIAM ISC[facility] LV Lat e' Velocity 7.4 cm/s WILLIAM ISCV Lat E/e' 17.2 WILLIAM ISCV LV Sept e' Yinka 5.4 cm/s WILLIAM ISCV Sep E/e' 23.5 WILLIAM ISCV Avg E/e' 20.3 WILLIAM ISCV RA MOD 4Ch 33 mL WILLIAM ISCV NAHUN 16 mL/m2 WILLIAM ISCV RV base 40 mm WILLIAM ISCV RV Mid 34 mm WILLIAM ISCV TR Vmax 159.0 cm/s WILLIAM ISCV TR Max PG 10 mmHG WILILAM ISCV TAPSE 19 mm WILLIAM ISCV IVC Max Size 25 mm WILLIAM ISCV RVSP 18 mmHg WILLIAM ISCV RAP systole 8 mmHg WILLIAM ISCV LAV(MOD-bp) Indexed 31 mL/m2 WILLIAM ISCV LAV(MOD-2ch) 79 mL WILLIAM ISCV LV EDV(MOD-4ch) 207 mL WILLIAM ISCV LV ESV(MOD4ch) 142 mL WILLIAM ISCV EF(MOD-sp4) 31 % WILLIAM ISCV LV EDV(MOD-2ch) 247 mL WILLIAM ISCV LV ESV(MOD2ch) 167 mL WILLIAM ISCV EF(MOD-sp2) 32 % WILLIAM ISCV EDV(MOD-bp) 227 mL WILLIAM ISCV ESV(MOD-bp) 155 mL WILLIAM ISCV EF(MOD-bp) 32 % WILLIAM ISCV AI dec time 850 msec WILLIAM ISCV AI P1/2t 247 msec WILLIAM ISCV MR Inflow Vol 88 mL WILLIAM ISCV MV V2 VTI 13.3 cm WILLIAM ISCV MV diam 1 29 mm WILLIAM ISCV Aortic R-R 690 ms WILLIAM ISCV CO(LVOT) 8.0 L/min WILLIAM ISCV MV diam 2 32 mm WILLIAM ISCV CO(LVOT) 385.6 L/min WILLIAM ISCV Anatomical Region Laterality Modality Echocardiography Narrative 02/04/2023 1:04 PM EST ?Left??Ventricle: The left ventricle is dilated. There is concentric hypertrophy. No left ventricular mass or thrombus is seen. The LVEF as measured by biplane volume is 32%. SV index: 44 cc/m2; cardiac index: 3.8 liters/min/m2 using the continuity equation and an LVOT dmension of 24mm. The diastolic function is abnormal. See diagram below for wall motion findings. ?Right??Ventricle: The right ventricle is normal in size. The right ventricular systolic function is normal. ?Aortic??Valve: The aortic valve appears to be trileaflet. The cusp(s) are thickened. ??The cusp(s) are calcified. ??There is aortic annular calcfication present. The noncoronary cusp is partially flail. There is a possible mass or vegetation on the aortic valve. There is moderate aortic valve regurgitation. There is calcific aortic sclerosis without hemodynamically significant aortic stenosis. The peak gradient is 22 mmHg. The mean gradient is 12 mmHg. The estimated aortic valve area by the continuity equation is 2.4 cm2. ?Mitral??Valve: There is moderate to severe mitral regurgitation with a central jet. The estimated mitral valve regurgitant fraction is in the severe (>/=50%) range. ??The mechanism for the mitral regurgitation is likely secondary to LV chamber dilatation. ?There is no recent study available for direct [id number] comparison. Consider further evaluation with a transesophageal echocardiogram if clinically indicated. ?? Left Ventricle The left ventricle is dilated. There is concentric hypertrophy.No left ventricular mass or thrombus is seen. The LVEF as measured by biplane volume is 32%. SV index: 44 cc/m2; cardiac index: 3.8 liters/min/m2 using the continuity equation and an LVOT dmension of 24mm. The diastolic function is abnormal. See diagram below for wall motion findings. Right Ventricle The right ventricle is normal in size. The right ventricular systolic function is normal. Right ventricular systolic pressure is normal (<35mmHg). Left Atrium The left atrial size is normal with an indexed volume of 16-34 mL/m2. The interatrial septum is intact with no evidence for an atrial septal defect. Right Atrium The right atrial volume index is small (<18mL/m2). IVC/SVC Based on the IVC size and respiratory variation, the estimated right atrial pressure is 8mmHg. Mitral Valve The leaflets appear thickened. There is moderate posterior mitral annular calcification. The mitral valve chordae are thickened and/or calcified. There is no mitral valve vegetation. There is moderate to severe mitral regurgitation with a central jet. The estimated mitral valve regurgitant fraction is in the severe (>/=50%) range. There is no mitral stenosis. Tricuspid Valve The tricuspid valve is normal in appearance. There is no tricuspid valve vegetation. There is mild tricuspid regurgitation. There is no tricuspid stenosis. Aortic Valve The aortic valve appears to be trileaflet. The cusp(s) are thickened. The cusp(s) are calcified. There is aortic annular calcfication present. The noncoronary cusp is partially flail. There is a possible mass or vegetation on the aortic valve. There is moderate aortic valve regurgitation. There is calcific aortic sclerosis without hemodynamically significant aortic stenosis. The peak gradient is 22 mmHg. The mean gradient is 12 mmHg. The estimated aortic valve area by the continuity equation is 2.4 cm2. Pulmonic Valve The pulmonic valve is normal in appearance. There is no pulmonic valve vegetation. There is trace pulmonic regurgitation. There is no pulmonic stenosis. Pericardium No pericardial effusion. Great Vessels The aortic root is normal in size. The sinus of Valsalva (aortic root) diameter is 35 mm by leading edge to leading edge method. In the maximally visualized portion, the ascending aorta appears normal in size. The main pulmonary artery is normal in size. Study Details A complete transthoracic echocardiogram using two-dimensional (2D), m-mode, color and spectral flow Doppler imaging was performed. During the study the apical, parasternal, subcostal and suprasternal view was captured. Definity contrast was used during the study. The study was technically difficult due to patient's clinical status and body habitus. BP: 155/96 mmHg. Heart Rate: 84 bpm. Height: 175.3 cm. Weight: 92.5 kg. BSA: 2.08 m2. Patient sitting upright. Study Recommendation There is no recent study available for direct qemy-vf-[id number] comparison. Consider further evaluation with a transesophageal echocardiogram if clinically indicated. Wall Scoring Baseline Score Index: 1.94 The following segments are akinetic: apical anterior, apical septal, apical inferior, apical lateral and apex. The following segments are hypokinetic: mid anterior, mid anteroseptal, mid inferoseptal, mid inferior, mid inferolateral and mid anterolateral. All other segments are normal. us Cary Restrepo MD CV ECHO PROCEDURES Final Resul t * (ABNORMAL) POCT glucose meter (02/04/2023 11:26 AM EST) POCT Glucose 193(H) 74 - 99 mg/dL 02/04/2023 11:27 AM EST [facility] Comment:Accuracy of a glucos e result obtained from a capillary whole blood specimen relies upon adequate, non-compromised capillary blood flow. If the capillary glucose result is not consistent with the patient's clinical signs and symptoms, glucose testing should be repeated with either an arterial or venous sample on the glucometer or sent to the main labortory for testing. Comment 02/04/2023 11:27 AM EST [facility] Glassworker ID [email or web address] parker 02/04/2023 11:27 AM EST [facility] Device ID [id number] 02/04/2023 11:27 AM EST [facility] Specimen Type POC Capillary 02/04/2023 11:27 AM EST [facility] Blood Capillary blood specimen / Unknown 02/04/2023 11:26 AM EST 02/04/2023 11:27 AM EST us Cary Restrepo MD LAB POINT OF CARE TE ST DOCKED DEVICE UNSOLICITED RESULTS Final Result Performing Organization Address City/State/[facility] Co de Phone Number [facility] [address] [place] [address] * EKG now - STAT (adult) (02/04/2023 9:58 AM EST) EKG DIAGNOSIS CLASS Abnormal MUSE ECG Ventricular Rate 77 BPM MUSE ECG Atrial Rate 77 BPM MUSE ECG KS Interval 138 ms MUSE ECG QRSD Interval 98 ms MUSE ECG QT Interval 390 ms MUSE ECG QTC Interval 441 ms MUSE ECG P [place] 29 degrees MUSE ECG R [place] -48 degrees MUSE ECG T Wave [place] 158 degrees MUSE ECG Diagnosis Sinus rhythm MUSE ECG Diagnosis with MUSE ECG Diagnosis blocked MUSE ECG Diagnosis premature atrial complexes MUSE ECG Diagnosis Left anterior fascicular block MUSE ECG Diagnosis Left ventricular hypertrophy MUSE ECG Diagnosis with repolarization abnormality MUSE ECG Diagnosis ( MUSE ECG Diagnosis R in aVL MUSE ECG Diagnosis , MUSE ECG Diagnosis Traver product MUSE ECG Diagnosis ) MUSE ECG Diagnosis Possible MUSE ECG Diagnosis Anterolateral infarct MUSE ECG Diagnosis , age undetermined MUSE ECG Diagnosis T wave abnormality, consider lateral ischemia MUSE ECG Diagnosis Abnormal ECG MUSE ECG Diagnosis Confirmed by Darrin Mitchell ([id number]) on 02/04/2023 5:33:48 PM MUSE ECG 02/04/2023 9:58 AM EST 02/04/2023 5:33 PM EST us Cary Restrepo MD ECG ORDERABLES Final Result MUSE ECG * Anti Xa Level Unfractionated Heparin (02/04/2023 8:48 AM EST) Anti Xa Level Unfractionated Heparin 0.72 IU/mL LAB COAGULATION METHOD 02/04/2023 9:18 AM EST [facility] Blood Venous blood specimen / Unknown Venipuncture / Unknown 02/04/2023 8:48 AM EST 02/04/2023 9:01 AM EST Narrative [facility] - 02/04/2023 9:18 AM EST Therapeutic Range: UFH Full Dose and ACS/TX protocols*: 0.30 - 0.70 IU/mL UFH Low Dose protocol*: 0.25 - 0.50 IU/mL UFH prophylaxis: Not established Cary Restrepo MD LAB BLOOD ORDERABLES Final Res ult Performing Organization Address City/[facility]/ZIP Co de Phone Number [facility] [address] [place] [address] * Protime-INR (02/04/2023 8:48 AM EST) Prothrombin Time 14.2 12.0 - 14.3 sec 02/04/2023 9:07 AM EST [facility] INR 1.1 0.9 - 1.1 02/04/2023 9:07 AM EST [facility] Blood Venous blood specimen / Unknown Venipuncture / Unknown 02/04/2023 8:48 AM EST 02/04/2023 8:54 AM EST Narrative [facility] - 02/04/2023 9:07 AM EST OPTIMAL INR RANGES FOR PATIENT ON ORAL ANTICOAGULANT THERAPY Prevention of venous thromboembolism ?INR 2.0 to 3.0 In patients with heart disease: Atrial fibrillation ?INR 2.0 to 3.0 Valvular heart disease ? INR 2.0 to 3.0 Tissue heart valves ?INR 2.0 to 3.0 Mechanical prosthetic valves ? INR 2.5 to 3.5 Prevention of recurrent TX ? INR 2.5 to 3.5 us Cary Restrepo MD LAB BLOOD ORDERABLES Final Res ult Performing Organization Address [facility] de Phone Number [facility] [address] [place] [address] * POCT glucose meter (02/04/2023 7:48 AM EST) POCT Glucose 97 74 - 99 mg/dL 02/04/2023 7:49 AM EST [facility] Comment:Accuracy of a glucos e result obtained from a capillary whole blood specimen relies upon adequate, non-compromised capillary blood flow. If the capillary glucose result is not consistent with the patient's clinical signs and symptoms, glucose testing should be repeated with either an arterial or venous sample on the glucometer or sent to the main labortory for testing. Comment 02/04/2023 7:49 AM EST [facility] Glassworker ID Fatuma Metzger 02/04/2023 7:49 AM EST [facility] Device ID [id number] 02/04/2023 7:49 AM EST [facility] Specimen Type POC Capillary 02/04/2023 7:49 AM EST [facility] Blood Capillary blood specimen / Unknown 02/04/2023 7:48 AM EST 02/04/2023 7:49 AM EST us Cary Restrepo MD LAB POINT OF CARE TE ST DOCKED DEVICE UNSOLICITED RESULTS Final Result Performing Organization Address [facility] de Phone Number [facility] [address] [place] [address] * XR Chest 1 View (02/04/2023 6:29 AM EST) Anatomical Region Laterality Modality Chest Digital Radiogra phy Impressions 02/04/2023 9:29 AM EST Redemonstrated bilateral airspace opacities, improved on the left. CRITICAL RESULT: ?? No. COMMUNICATION: Per this written report. By electronically signing this report, I, the attending physician, attest that I have personally reviewed the images/data for the above examination(s) and agree with the final edited report. Drafted by Macrina Dao MD on 02/04/2023 8:37 AM Final report signed by Douglas Norman MD on 02/04/2023 9:29 AM Narrative 02/04/2023 9:29 AM EST CLINICAL INDICATION: ahrf TECHNIQUE: XR CHEST 1 VIEW COMPARISON: Chest radiograph February 03, 2023. FINDINGS: The mediastinal contours and cardiac silhouette are stable. Pulmonary vascular congestion. Redemonstrated bilateral airspace opacities, improved on the left. Stable small bilateral pleural effusions. No pneumothorax. Procedure Note Douglas Norman MD - 02/04/2023 CLINICAL INDICATION: ahrf TECHNIQUE: XR CHEST 1 VIEW COMPARISON: Chest radiograph February 03, 2023. FINDINGS: The mediastinal contours and cardiac silhouette are stable. Pulmonaryvascular congestion. Redemonstrated bilateral airspace opacities, improvedon the left. Stable small bilateral pleural effusions. No pneumothorax. IMPRESSION: Redemonstrated bilateral airspace opacities, improved on the left. CRITICAL RESULT: No. COMMUNICATION: Per this written report. By electronically signing this report, I, the attending physician, attestthat I have personally reviewed the images/data for the aboveexamination(s) and agree with the final edited report. Drafted by Macrina Dao MD on 02/04/2023 8:37 AM Final report signed by Douglas Norman MD on 02/04/2023 9:29 AM Cary Restrepo MD IMG XR PROCEDURES Final Result * Magnesium (02/04/2023 2:53 AM EST) Magnesium, Plasma 2.4 1.9 - 2.4 mg/dL 02/04/2023 3:35 AM EST [facility] Blood Venous blood specimen / Unknown Venipuncture / Unknown 02/04/2023 2:53 AM EST 02/04/2023 3:02 AM EST us Cary Restrepo MD LAB BLOOD ORDERABLES Final Res ult [facility] [address] [place] [address] * (ABNORMAL) Renal function panel (02/04/2023 2:53 AM EST) Glucose, Plasma 141(H) 74 - 99 mg/dL 02/04/2023 3:35 AM EST [facility] BUN, Plasma 83(H) 7 - 21 mg/dL 02/04/2023 3:35 AM EST [facility] Creatinine, Plasma 3.93(H) 0.80 - 1.30 mg/dL 02/04/2023 3:35 AM EST [facility] BUN/Creatinine Ratio 21 02/04/2023 3:35 AM EST [facility] Sodium, Plasma 140 136 - 145 mmol/L 02/04/2023 3:35 AM EST [facility] Potassium, Plasma 5.2(H) 3.7 - 4.8 mmol/L 02/04/2023 3:35 AM EST [facility] Chloride, Plasma 102 97 - 107 mmol/L 02/04/2023 3:35 AM EST [facility] CO2, Plasma 23 22 - 29 mmol/L 02/04/2023 3:35 AM EST [facility] Anion Gap 15 6 - 16 mmol/L 02/04/2023 3:35 AM EST [facility] Total Calcium, Plasma 8.4(L) 8.9 - 10.2 mg/dL 02/04/2023 3:35 AM EST [facility] Phosphorus, Plasma 5.1(H) 2.5 - 4.5 mg/dL 02/04/2023 3:35 AM EST [facility] Albumin, Plasma 3.6 3.5 - 5.2 g/dL 02/04/2023 3:35 AM EST [facility] eGFRcr 17.2 mL/min/1.7 3m*2 02/04/2023 3:35 AM EST [facility] Comment:Reported eGFRcr in m L/min/1.73m2 is based the CKD-EPI 2020 equation that does not use a race coefficient. Blood Venous blood specimen / Unknown Venipuncture / Unknown 02/04/2023 2:53 AM EST 02/04/2023 3:02 AM EST Cary Restrepo MD LAB BLOOD ORDERABLES Final Res ult Performing Organization Address City/[facility]/ZIP Co de Phone Number [facility] [address] [place] [address] * (ABNORMAL) CBC W/O Differential (02/04/2023 2:53 AM EST) WBC Count 16.27(H) 3.70 - 10.30 10*3/uL LAB HEMATOLOGY METHOD 02/04/2023 2:59 AM EST [facility] RBC Count 4.35(L) 4.60 - 6.10 10*6/uL LAB HEMATOLOGY METHOD 02/04/2023 2:59 AM EST [facility] HGB 12.4(L) 13.7 - 17.5 g/dL LAB HEMATOLOGY METHOD 02/04/2023 2:59 AM EST [facility] HCT 38.0(L) 40.0 - 51.0 % LAB HEMATOLOGY METHOD 02/04/2023 2:59 AM EST [facility] Platelet Count 270 155 - 369 10*3/uL LAB HEMATOLOGY METHOD 02/04/2023 2:59 AM EST [facility] MCV 87 79 - 98 fL LAB HEMATOLOGY METHOD 02/04/2023 2:59 AM EST [facility] MCH 28.5 26.0 - 32.0 pg LAB HEMATOLOGY METHOD 02/04/2023 2:59 AM EST [facility] MCHC 32.6 30.7 - 35.5 g/dL LAB HEMATOLOGY METHOD 02/04/2023 2:59 AM EST [facility] RDW 14.0 11.5 - 14.5 % LAB HEMATOLOGY METHOD 02/04/2023 2:59 AM EST [facility] MPV 10.9 8.8 - 12.5 fL LAB HEMATOLOGY METHOD 02/04/2023 2:59 AM EST [facility] nRBC 0.0 <=0.0 per 100 WBCs LAB HEMATOLOGY METHOD 02/04/2023 2:59 AM EST [facility] Blood Venous blood specimen / Unknown Venipuncture / Unknown 02/04/2023 2:53 AM EST 02/04/2023 2:56 AM EST Cary Restrepo MD LAB BLOOD ORDERABLES Final Res ult Performing Organization Address City/[facility]/ZIP Co de Phone Number [facility] [address] [place] [address] * (ABNORMAL) POCT glucose meter (02/04/2023 12:16 AM EST) Pathologist [facility] POCT Glucose 207(H) 74 - 99 mg/dL 02/04/2023 12:18 AM EST [facility] Comment:Accuracy of a glucos e result obtained from a capillary whole blood specimen relies upon adequate, non-compromised capillary blood flow. If the capillary glucose result is not consistent with the patient's clinical signs and symptoms, glucose testing should be repeated with either an arterial or venous sample on the glucometer or sent to the main labortory for testing. Comment 02/04/2023 12:18 AM EST [facility] Glassworker ID Gisselle Rene 02/04/2023 12:18 AM EST [facility] Device ID [id number] 02/04/2023 12:18 AM EST [facility] Specimen Type POC Capillary 02/04/2023 12:18 AM EST [facility] Blood Capillary blood specimen / Unknown 02/04/2023 12:16 AM EST 02/04/2023 12:18 AM EST us Cary Restrepo MD LAB POINT OF CARE TE ST DOCKED DEVICE UNSOLICITED RESULTS Final Result [facility] [address] [place] [address] * Light Blue Top (02/03/2023 11:28 PM EST) [facility] Extra Hold for add-ons 02/04/2023 2:01 AM EST [facility] Comment:Auto resulted. Blood Venous blood specimen / Unknown 02/03/2023 11:28 PM EST 02/03/2023 11:33 PM EST us Cary Restrepo MD LAB BLOOD ORDERABLES Final Res ult [facility] [address] [place] [address] * (ABNORMAL) Blood gas, venous (02/03/2023 11:28 PM EST) [facility] pH, Venous 7.32 7.32 - 7.43 LAB HEMATOLOGY METHOD 02/03/2023 11:34 PM EST [facility] pCO2, Venous 44 40 - 55 mmHg LAB HEMATOLOGY METHOD 02/03/2023 11:34 PM EST [facility] pO2, Venous 43(H) 25 - 40 mmHg LAB HEMATOLOGY METHOD 02/03/2023 11:34 PM [facility] SO2, Measured, Venous 70 65 - 80 % LAB HEMATOLOGY METHOD 02/03/2023 11:34 PM EST [facility] Base Excess, Venous -3.5(L) -2.0 - 3.0 mmol/L LAB HEMATOLOGY METHOD 02/03/2023 11:34 PM EST [facility] Bicarbonate, Calculated, Venous 23 22 - 26 mmol/L LAB HEMATOLOGY METHOD 02/03/2023 11:34 PM [facility] Hematocrit, Whole Blood 40.0 40.0 - 51.0 % LAB HEMATOLOGY METHOD 02/03/2023 11:34 PM EST [facility] Sodium, Whole Blood 140 136 - 145 mmol/L LAB HEMATOLOGY METHOD 02/03/2023 11:34 PM [facility] Potassium, Whole Blood 5.4(H) 3.6 - 4.9 mmol/L LAB HEMATOLOGY METHOD 02/03/2023 11:34 PM EST [facility] Chloride, Whole Blood 104 97 - 107 mmol/L LAB HEMATOLOGY METHOD 02/03/2023 11:34 PM [facility] Glucose, Whole Blood 259(H) 74 - 99 mg/dL LAB HEMATOLOGY METHOD 02/03/2023 11:34 PM [facility] Lactate, Venous, Whole Blood 2.6(H) 0.5 - 2.2 mmol/L LAB HEMATOLOGY METHOD 02/03/2023 11:34 PM EST [facility] Ionized Calcium, Whole Blood 4.3(L) 4.6 - 5.1 mg/dL LAB HEMATOLOGY METHOD 02/03/2023 11:34 PM [facility] Blood Venous blood specimen / Unknown Venipuncture / Unknown 02/03/2023 11:28 PM EST 02/03/2023 11:32 PM EST us Cary Restrepo MD LAB BLOOD ORDERABLES Final Res ult [facility] [address] [place] [address] * (ABNORMAL) Anti Xa Level Unfractionated Heparin (02/03/2023 11:28 PM EST) Anti Xa Level Unfractionated Heparin >1.10(HH) IU/mL 02/04/2023 12:08 AM EST [facility] Blood Venous blood specimen / Unknown Venipuncture / Unknown 02/03/2023 11:28 PM EST 02/03/2023 11:30 PM EST Narrative [facility] - 02/04/2023 12:08 AM EST Therapeutic Range: UFH Full Dose and ACS/TX protocols*: 0.30 - 0.70 IU/mL UFH Low Dose protocol*: 0.25 - 0.50 IU/mL UFH prophylaxis: Not established Cary Restrepo MD LAB BLOOD ORDERABLES Final Res ult Performing Organization Address [facility] Co de Phone Number [facility] [address] [place] [address] * (ABNORMAL) Anti Xa Level Unfractionated Heparin (02/03/2023 10:45 PM EST) Anti Xa Level Unfractionated Heparin >1.10(HH) IU/mL 02/03/2023 11:02 PM EST [facility] Blood Venous blood specimen / Unknown Venipuncture / Unknown 02/03/2023 10:45 PM EST 02/03/2023 10:48 PM EST Narrative [facility] - 02/03/2023 11:02 PM EST Therapeutic Range: UFH Full Dose and ACS/TX protocols*: 0.30 - 0.70 IU/mL UFH Low Dose protocol*: 0.25 - 0.50 IU/mL UFH prophylaxis: Not established us Cary Restrepo MD LAB BLOOD ORDERABLES Final Res ult [facility] [address] [place] [address] * (ABNORMAL) POCT glucose meter (02/03/2023 8:27 PM EST) POCT Glucose 356(H) 74 - 99 mg/dL 02/03/2023 8:30 PM EST [facility] Comment:Accuracy of [...] to the main labortory for testing. Comment 02/03/2023 8:30 PM EST [facility] Glassworker ID Gisselle Rene 02/03/2023 8:30 PM EST [facility] Device ID [id number] 02/03/2023 8:30 PM EST [facility] Specimen Type POC Capillary 02/03/2023 8:30 PM EST [facility] Blood Capillary blood specimen / Unknown 02/03/2023 8:27 PM EST 02/03/2023 8:30 PM EST Cary Restrepo MD LAB POINT OF CARE TE ST DOCKED DEVICE UNSOLICITED RESULTS Final Result Performing Organization Address City/State/[facility] Phone Number [facility] [address] [place] [address] * (ABNORMAL) Blood gas, venous (02/03/2023 7:53 PM EST) pH, Venous 7.29(L) 7.32 - 7.43 LAB HEMATOLOGY METHOD 02/03/2023 8:03 PM EST [facility] pCO2, Venous 45 40 - 55 mmHg LAB HEMATOLOGY METHOD 02/03/2023 8:03 PM EST [facility] pO2, Venous 42(H) 25 - 40 mmHg LAB HEMATOLOGY METHOD 02/03/2023 8:03 PM EST [facility] SO2, Measured, Venous 72 65 - 80 % LAB HEMATOLOGY METHOD 02/03/2023 8:03 PM EST [facility] Base Excess, Venous -5.2(L) -2.0 - 3.0 mmol/L LAB HEMATOLOGY METHOD 02/03/2023 8:03 PM EST [facility] Bicarbonate, Calculated, Venous 21(L) 22 - 26 mmol/L LAB HEMATOLOGY METHOD 02/03/2023 8:03 PM EST [facility] Hematocrit, Whole Blood 36.7(L) 40.0 - 51.0 % LAB HEMATOLOGY METHOD 02/03/2023 8:03 PM EST [facility] Sodium, Whole Blood 138 136 - 145 mmol/L LAB HEMATOLOGY METHOD 02/03/2023 8:03 PM EST [facility] Potassium, Whole Blood 5.5(H) 3.6 - 4.9 mmol/L LAB HEMATOLOGY METHOD 02/03/2023 8:03 PM EST [facility] Chloride, Whole Blood 102 97 - 107 mmol/L LAB HEMATOLOGY METHOD 02/03/2023 8:03 PM EST [facility] Glucose, Whole Blood 413(H) 74 - 99 mg/dL LAB HEMATOLOGY METHOD 02/03/2023 8:03 PM EST [facility] Lactate, Venous, Whole Blood 4.0(H) 0.5 - 2.2 mmol/L LAB HEMATOLOGY METHOD 02/03/2023 8:03 PM EST [facility] Ionized Calcium, Whole Blood 4.2(L) 4.6 - 5.1 mg/dL LAB HEMATOLOGY METHOD 02/03/2023 8:03 PM EST [facility] Blood Venous blood specimen / Unknown Venipuncture / Unknown 02/03/2023 7:53 PM EST 02/03/2023 7:59 PM EST Cary Restrepo MD LAB BLOOD ORDERABLES Final Res ult [facility] [address] [place] [address] * Magnesium (02/03/2023 7:52 PM EST) Magnesium, Plasma 2.2 1.9 - 2.4 mg/dL 02/03/2023 8:20 PM EST [facility] Blood Venous blood specimen / Unknown Venipuncture / Unknown 02/03/2023 7:52 PM EST 02/03/2023 7:59 PM EST Cary Restrepo MD LAB BLOOD ORDERABLES Final Res ult [facility] [address] [place] [address] * (ABNORMAL) Basic metabolic panel (02/03/2023 7:52 PM EST) Glucose, Plasma 422(H) 74 - 99 mg/dL 02/03/2023 8:20 PM EST [facility] BUN, Plasma 79(H) 7 - 21 mg/dL 02/03/2023 8:20 PM EST [facility] Creatinine, Plasma 3.77(H) 0.80 - 1.30 mg/dL 02/03/2023 8:20 PM EST [facility] BUN/Creatinine Ratio 21 02/03/2023 8:20 PM EST [facility] Sodium, Plasma 134(L) 136 - 145 mmol/L 02/03/2023 8:20 PM EST [facility] Potassium, Plasma 5.6(H) 3.7 - 4.8 mmol/L 02/03/2023 8:20 PM EST [facility] Chloride, Plasma 101 97 - 107 mmol/L 02/03/2023 8:20 PM EST [facility] CO2, Plasma 19(L) 22 - 29 mmol/L 02/03/2023 8:20 PM EST [facility] Anion Gap 14 6 - 16 mmol/L 02/03/2023 8:20 PM EST [facility] Total Calcium, Plasma 7.9(L) 8.9 - 10.2 mg/dL 02/03/2023 8:20 PM EST [facility] eGFRcr 18.1 mL/min/1.7 3m*2 02/03/2023 8:20 PM EST [facility] Comment:Reported eGFRcr in m L/min/1.73m2 is based the CKD-EPI 2020 equation that does not use a race coefficient. Blood Venous blood specimen / Unknown Venipuncture / Unknown 02/03/2023 7:52 PM EST 02/03/2023 7:59 PM EST us Cary Restrepo MD LAB BLOOD ORDERABLES Final Res ult [facility] [address] [place] [address] * ECG Adult (02/03/2023 7:44 PM EST) EKG DIAGNOSIS CLASS Abnormal MUSE ECG Ventricular Rate 97 BPM MUSE ECG Atrial Rate 97 BPM MUSE ECG [place] Interval 158 ms MUSE ECG QRSD Interval 88 ms MUSE ECG QT Interval 360 ms MUSE ECG QTC Interval 457 ms MUSE ECG P [place] 40 degrees MUSE ECG R [place] -44 degrees MUSE ECG T Wave [place] 145 degrees MUSE ECG Diagnosis Normal sinus rhythm MUSE ECG Diagnosis Left axis deviation MUSE ECG Diagnosis Minimal voltage criteria for LVH, may be normal variant MUSE ECG Diagnosis ( MUSE ECG Diagnosis R in aVL MUSE ECG Diagnosis ) MUSE ECG Diagnosis Anteroseptal infarct MUSE ECG Diagnosis , age undetermined MUSE ECG Diagnosis T wave abnormality, consider lateral ischemia MUSE ECG Diagnosis Abnormal ECG MUSE ECG Diagnosis Confirmed by Darrin Mitchell ([id number]) on 02/04/2023 4:29:45 PM MUSE ECG 02/03/2023 7:44 PM EST 02/04/2023 4:29 PM EST Cary Restrepo MD ECG ORDERABLES Final Result Performing Organization Address [facility] Co de Phone Number MUSE ECG * ECG Adult (02/03/2023 6:35 PM EST) EKG DIAGNOSIS CLASS Abnormal MUSE ECG Ventricular Rate 93 BPM MUSE ECG Atrial Rate 93 BPM MUSE ECG [place] Interval 132 ms MUSE ECG QRSD Interval 80 ms MUSE ECG QT Interval 366 ms MUSE ECG QTC Interval 455 ms MUSE ECG P [place] 38 degrees MUSE ECG R [place] -37 degrees MUSE ECG T Wave [place] 183 degrees MUSE ECG Diagnosis Normal sinus rhythm MUSE ECG Diagnosis Left axis deviation MUSE ECG Diagnosis Minimal voltage criteria for LVH, may be normal variant MUSE ECG Diagnosis ( MUSE ECG Diagnosis R in aVL MUSE ECG Diagnosis ) MUSE ECG Diagnosis Inferior infarct MUSE ECG Diagnosis , age undetermined MUSE ECG Diagnosis Anteroseptal infarct MUSE ECG Diagnosis , age undetermined MUSE ECG Diagnosis ST & MUSE ECG Diagnosis T wave abnormality, consider lateral ischemia MUSE ECG Diagnosis Abnormal ECG MUSE ECG Diagnosis Confirmed by Darrin Mitchell ([id number]) on 02/04/2023 4:18:30 PM MUSE ECG 02/03/2023 6:35 PM EST 02/04/2023 4:18 PM EST Cary Restrepo MD ECG ORDERABLES Final Result Performing Organization Address [facility] Co de Phone Number MUSE ECG * (ABNORMAL) CBC W/O Differential - Baseline (02/03/2023 5:46 PM EST) WBC Count 17.41(H) 3.70 - 10.30 10*3/uL LAB HEMATOLOGY METHOD 02/03/2023 5:50 PM EST [facility] RBC Count 4.32(L) 4.60 - 6.10 10*6/uL LAB HEMATOLOGY METHOD 02/03/2023 5:50 PM EST [facility] HGB 12.2(L) 13.7 - 17.5 g/dL LAB HEMATOLOGY METHOD 02/03/2023 5:50 PM EST [facility] HCT 38.8(L) 40.0 - 51.0 % LAB HEMATOLOGY METHOD 02/03/2023 5:50 PM EST [facility] Platelet Count 302 155 - 369 10*3/uL LAB HEMATOLOGY METHOD 02/03/2023 5:50 PM EST [facility] MCV 90 79 - 98 fL LAB HEMATOLOGY METHOD 02/03/2023 5:50 PM EST [facility] MCH 28.2 26.0 - 32.0 pg LAB HEMATOLOGY METHOD 02/03/2023 5:50 PM EST [facility] MCHC 31.4 30.7 - 35.5 g/dL LAB HEMATOLOGY METHOD 02/03/2023 5:50 PM EST [facility] RDW 14.1 11.5 - 14.5 % LAB HEMATOLOGY METHOD 02/03/2023 5:50 PM EST [facility] MPV 11.5 8.8 - 12.5 fL LAB HEMATOLOGY METHOD 02/03/2023 5:50 PM EST [facility] nRBC 0.0 <=0.0 per 100 WBCs LAB HEMATOLOGY METHOD 02/03/2023 5:50 PM EST [facility] Blood Venous blood specimen / Unknown Venipuncture / Unknown 02/03/2023 5:46 PM EST 02/03/2023 5:49 PM EST us Cary Restrepo MD LAB BLOOD ORDERABLES Final Res ult [facility] [address] [place] [address] * (ABNORMAL) POCT glucose meter (02/03/2023 5:01 PM EST) POCT Glucose 360(H) 74 - 99 mg/dL 02/03/2023 5:03 PM EST [facility] Comment:Accuracy of a glucos e result obtained from a capillary whole blood specimen relies upon adequate, non-compromised capillary blood flow. If the capillary glucose result is not consistent with the patient's clinical signs and symptoms, glucose testing should be repeated with either an arterial or venous sample on the glucometer or sent to the main labortory for testing. Comment 02/03/2023 5:03 PM EST [facility] Glassworker ID Cheryle Chow 5:03 PM EST [facility] Device ID [id number] 02/03/2023 5:03 PM EST [facility] Specimen Type POC Capillary 02/03/2023 5:03 PM EST [facility] Blood Capillary blood specimen / Unknown 02/03/2023 5:01 PM EST 02/03/2023 5:03 PM EST Cary Restrepo MD LAB POINT OF CARE TE ST DOCKED DEVICE UNSOLICITED RESULTS Final Result Performing Organization Address City/State/[facility] Phone Number [facility] [address] [place] [address] * (ABNORMAL) Protime-INR (02/03/2023 4:20 PM EST) [facility] Prothrombin Time 14.4(H) 12.0 - 14.3 sec 02/03/2023 4:36 PM EST [facility] INR 1.2(H) 0.9 - 1.1 02/03/2023 4:36 PM EST [facility] Blood Venous blood specimen / Unknown Venipuncture / Unknown 02/03/2023 4:20 PM EST 02/03/2023 4:23 PM EST Narrative [facility] - 02/03/2023 4:36 PM EST OPTIMAL INR RANGES FOR PATIENT ON ORAL ANTICOAGULANT THERAPY Prevention of venous thromboembolism ?INR 2.0 to 3.0 In patients with heart disease: Atrial fibrillation ?INR 2.0 to 3.0 Valvular heart disease ? INR 2.0 to 3.0 Tissue heart valves ?INR 2.0 to 3.0 Mechanical prosthetic valves ? INR 2.5 to 3.5 Prevention of recurrent [place] ? INR 2.5 to 3.5 Cary Restrepo MD LAB BLOOD ORDERABLES Final Res ult Performing Organization Address [facility] de Phone Number [facility] [address] [place] [address] * Anti Xa Level Unfractionated Heparin - Baseline (02/03/2023 4:20 PM EST) Anti Xa Level Unfractionated Heparin <0.11 IU/mL 02/03/2023 4:37 PM EST [facility] Blood Venous blood specimen / Unknown Venipuncture / Unknown 02/03/2023 4:20 PM EST 02/03/2023 4:23 PM EST Narrative [facility] - 02/03/2023 4:37 PM EST Therapeutic Range: UFH Full Dose and ACS/TX protocols*: 0.30 - 0.70 IU/mL UFH Low Dose protocol*: 0.25 - 0.50 IU/mL UFH prophylaxis: Not established Cary Restrepo MD LAB BLOOD ORDERABLES Final Res ult Performing Organization Address [facility] de Phone Number [facility] [address] [place] [address] * (ABNORMAL) Potassium (02/03/2023 2:03 PM EST) Potassium, Plasma 5.6(H) 3.7 - 4.8 mmol/L 02/03/2023 2:19 PM EST [facility] Blood Venous blood specimen / Unknown Venipuncture / Unknown 02/03/2023 2:03 PM EST 02/03/2023 2:05 PM EST us Cary Restrepo MD LAB BLOOD ORDERABLES Final Res ult Performing Organization Address [facility] de Phone Number [facility] [address] [place] [address] * (ABNORMAL) POCT glucose meter (02/03/2023 1:54 PM EST) [facility] POCT Glucose 312(H) 74 - 99 mg/dL 02/03/2023 1:55 PM EST [facility] Comment:Accuracy of a glucos e result obtained from a capillary whole blood specimen relies upon adequate, non-compromised capillary blood flow. If the capillary glucose result is not consistent with the patient's clinical signs and symptoms, glucose testing should be repeated with either an arterial or venous sample on the glucometer or sent to the main labortory for testing. Comment 02/03/2023 1:55 PM EST [facility] Glassworker ID Pierre Renee 02/03/2023 1:55 PM EST [facility] Device ID [id number] 02/03/2023 1:55 PM EST [facility] Specimen Type POC Capillary 02/03/2023 1:55 PM EST [facility] Blood Capillary blood specimen / Unknown 02/03/2023 1:54 PM EST 02/03/2023 1:55 PM EST Cary Restrepo MD LAB POINT OF CARE TE ST DOCKED DEVICE UNSOLICITED RESULTS Final Result Performing Organization Address City/State/[facility] Co de Phone Number [facility] [address] [place] [address] * (ABNORMAL) Blood gas, venous (02/03/2023 11:23 AM EST) [facility] pH, Venous 7.29(L) 7.32 - 7.43 LAB HEMATOLOGY METHOD 02/03/2023 11:26 AM EST [facility] pCO2, Venous 50 40 - 55 mmHg LAB HEMATOLOGY METHOD 02/03/2023 11:26 AM EST [facility] pO2, Venous 39 25 - 40 mmHg LAB HEMATOLOGY METHOD 02/03/2023 11:26 AM EST [facility] SO2, Measured, Venous 61(L) 65 - 80 % LAB HEMATOLOGY METHOD 02/03/2023 11:26 AM EST [facility] Base Excess, Venous -3.3(L) -2.0 - 3.0 mmol/L LAB HEMATOLOGY METHOD 02/03/2023 11:26 AM EST [facility] Bicarbonate, Calculated, Venous 24 22 - 26 mmol/L LAB HEMATOLOGY METHOD 02/03/2023 11:26 AM EST [facility] Hematocrit, Whole Blood 36.7(L) 40.0 - 51.0 % LAB HEMATOLOGY METHOD 02/03/2023 11:26 AM EST [facility] Sodium, Whole Blood 139 136 - 145 mmol/L LAB HEMATOLOGY METHOD 02/03/2023 11:26 AM EST [facility] Potassium, Whole Blood 4.8 3.6 - 4.9 mmol/L LAB HEMATOLOGY METHOD 02/03/2023 11:26 AM EST [facility] Chloride, Whole Blood 104 97 - 107 mmol/L LAB HEMATOLOGY METHOD 02/03/2023 11:26 AM EST [facility] Glucose, Whole Blood 260(H) 74 - 99 mg/dL LAB HEMATOLOGY METHOD 02/03/2023 11:26 AM EST [facility] Lactate, Venous, Whole Blood 2.1 0.5 - 2.2 mmol/L LAB HEMATOLOGY METHOD 02/03/2023 11:26 AM EST [facility] Ionized Calcium, Whole Blood 4.3(L) 4.6 - 5.1 mg/dL LAB HEMATOLOGY METHOD 02/03/2023 11:26 AM EST [facility] Blood Venous blood specimen / Unknown Venipuncture / Unknown 02/03/2023 11:23 AM EST 02/03/2023 11:24 AM EST Niko Rodriguez MD LAB BLOOD ORDERABLES Final Result [facility] [address] [place] [address] * (ABNORMAL) Troponin T, High Sensitivity, 2 Hour, Plasma (02/03/2023 8:50 AM EST) Troponin T, High Sensitivity, 2 Hour 198(H) <19 ng/L 02/03/2023 9:12 AM EST [facility] Troponin Delta 20(H) <10 ng/L 02/03/2023 9:12 AM EST [facility] Troponin Delta Interpretation Significant 02/03/2023 9:12 AM EST [facility] Comment:Significant change i n Troponin observed [...] specimen / Unknown Venipuncture / Unknown 02/03/2023 8:50 AM EST 02/03/2023 8:54 AM EST us Don Jeffries MD LAB BLOOD ORDERABLES Final R esult Performing Organization Address [facility]/ZIP Co de Phone Number [facility] [address] [place] [address] * (ABNORMAL) Multi Drug Resistance Test (02/03/2023 8:17 AM EST) Culture Methicillin-Resist ant Staphylococcus aureus(AA) 02/04/2023 8:22 AM EST [facility] Swab (Nares and Josefina Rectal) Non-blood Collection / Unknown 02/03/2023 8:17 AM EST 02/03/2023 8:35 AM EST Niko Rodriguez MD LAB MICROBIOLOGY - GENERAL ORDERABLES Final Result Performing Organization Address [facility] de Phone Number [facility] [address] [place] [address] * XR Chest 1 View (02/03/2023 7:28 AM EST) Anatomical Region Laterality Modality Chest Digital Radiogra phy Impressions 02/03/2023 10:39 AM EST Cardiomegaly with pulmonary vascular congestion. Bilateral ill-defined airspace opacities and diffuse interstitial opacification similar to the previous CT scan from February 2019. Most likely there is underlying chronic lung disease. Consider pulmonary edema versus multifocal infection. CRITICAL RESULT: ?? No. COMMUNICATION: Per this written report. By electronically signing this report, I, the attending physician, attest that I have personally reviewed the images/data for the above examination(s) and agree with the final edited report. Drafted by Macrina Dao MD on 02/03/2023 8:08 AM Final report signed by Tess Connelly MD on 02/03/2023 10:39 AM Narrative 02/03/2023 10:39 AM EST CLINICAL INDICATION: soa TECHNIQUE: XR CHEST 1 VIEW COMPARISON: Outside CXR 02/03/2023. FINDINGS: The mediastinal contour and cardiac silhouette are stable. Redemonstrated is pulmonary vascular congestion and bilateral ill-defined airspace opacities. Probable small bilateral pleural effusions. No pneumothorax. Procedure Note Tess Connelly MD - 02/03/2023 CLINICAL INDICATION: soa TECHNIQUE: XR CHEST 1 VIEW COMPARISON: Outside CXR 02/03/2023. FINDINGS: The mediastinal contour and cardiac silhouette are stable. Redemonstratedis pulmonary vascular congestion and bilateral ill-defined airspaceopacities. Probable small bilateral pleural effusions. No pneumothorax. IMPRESSION: Cardiomegaly with pulmonary vascular congestion. Bilateral ill-defined airspace opacities and diffuse interstitialopacification similar to the previous CT scan from February 2019. Mostlikely there is underlying chronic lung disease. Consider pulmonary edemaversus multifocal infection. CRITICAL RESULT: No. COMMUNICATION: Per this written report. By electronically signing this report, I, the attending physician, attestthat I have personally reviewed the images/data for the aboveexamination(s) and agree with the final edited report. Drafted by Macrina Dao MD on 02/03/2023 8:08 AM Final report signed by Tess Connelly MD on 02/03/2023 10:39 AM us Don Jeffries MD IMG XR PROCEDURES Final Resu lt * CT Angio Pulmonary Embolism (02/03/2023 7:21 AM EST) Anatomical Region Laterality Modality Chest Computed Tomogra phy Impressions 02/03/2023 8:59 AM EST No pulmonary embolism. Diffuse pulmonary edema/pneumonia as described above. Small bilateral pleural fluid collections. Several intermediate size lymph nodes in the mediastinum are most likely reactive. Mild cardiomegaly. Calcifications in the coronary arteries. CRITICAL RESULT: ?? No. COMMUNICATION: Per this written report. Drafted by Tess Connelly MD on 02/03/2023 8:49 AM Final report signed by Tess Connelly MD on 02/03/2023 8:59 AM Narrative 02/03/2023 8:59 AM EST CLINICAL INDICATION: pna/hypoxia TECHNIQUE: Imaging of the chest was performed from thoracic inlet through upper abdomen, using spiral technique, following administration of IV contrast, Omnipaque 350, 100 mL per the pulmonary angiogram protocol. In addition, 3D images were created and reviewed. TOTAL DLP (Dose-Length Product): 378.35 mGy.cm. Please note: The reported value represents the total of one or more individual components during the CT acquisition on this date and at this time, and as such, the same value may appear in more than one CT report depending on the interpreting/reporting physicians. COMPARISON: None. FINDINGS: Pulmonary Arteries/Vessels: No pulmonary embolism. Right Heart Strain: No evidence of right heart strain. Pleural/Pericardial space: No pneumothorax. ??There are small bilateral pleural fluid collections ??No pericardial effusion. Lymph Nodes: There are several borderline sized lymph nodes in the mediastinum. In the prevascular space there is a 1 cm lymph node on image 51 of series 4. Similar sized lymph nodes are seen in the right paratracheal space and numerous smaller lymph nodes are seen throughout the mediastinum. These are most likely reactive Lungs: There is diffuse interstitial and groundglass opacification throughout the lungs with focal areas of alveolar opacification that are peripheral. This is seen in the bilateral upper lobes on image 34 of series 5 with a focal area of opacification in the anterior right lung apex and in the posterior aspect of the left upper lobe. Additional areas of focal opacification are seen in the peripheral aspect of the right middle lobe and lingula. There is dense perihilar opacification in the right and left lower lobes, right side greater than left. Mediastinum: Mild cardiomegaly. Chest wall: No chest wall hematoma or contusion. Bones: No acute fracture within the chest. Upper Abdomen: Postcholecystectomy. Procedure Note Tess Connelly MD - 02/03/2023 CLINICAL INDICATION: pna/hypoxia TECHNIQUE: Imaging of the chest was performed from thoracic inlet through upperabdomen, using spiral technique, following administration of IV contrast,Omnipaque 350, 100 mL per the pulmonary angiogram protocol. In addition,3D images were created and reviewed. TOTAL DLP (Dose-Length Product): 378.35 mGy.cm. Please note: The reportedvalue represents the total of one or more individual components during theCT acquisition on this date and at this time, and as such, the same valuemay appear in more than one CT report depending on theinterpreting/reporting physicians. COMPARISON: None. FINDINGS: Pulmonary Arteries/Vessels: No pulmonary embolism. Right Heart Strain: No evidence of right heart strain. Pleural/Pericardial space: No pneumothorax. There are small bilateralpleural fluid collections No pericardial effusion. Lymph Nodes: There are several borderline sized lymph nodes in themediastinum. In the prevascular space there is a 1 cm lymph node on image51 of series 4. Similar sized lymph nodes are seen in the rightparatracheal space and numerous smaller lymph nodes are seen throughoutthe mediastinum. These are most likely reactive Lungs: There is diffuse interstitial and groundglass opacificationthroughout the lungs with focal areas of alveolar opacification that areperipheral. This is seen in the bilateral upper lobes on image 34 ofseries 5 with a focal area of opacification in the anterior right lungapex and in the posterior aspect of the left upper lobe. Additional areasof focal opacification are seen in the peripheral aspect of the rightmiddle lobe and lingula. There is dense perihilar opacification in theright and left lower lobes, right side greater than left. Mediastinum: Mild cardiomegaly. Chest wall: No chest wall hematoma or contusion. Bones: No acute fracture within the chest. Upper Abdomen: Postcholecystectomy. IMPRESSION: No pulmonary embolism. Diffuse pulmonary edema/pneumonia as described above. Small bilateralpleural fluid collections. Several intermediate size lymph nodes in themediastinum are most likely reactive. Mild cardiomegaly. Calcifications in the coronary arteries. CRITICAL RESULT: No. COMMUNICATION: Per this written report. Drafted by Tess Connelly MD on 02/03/2023 8:49 AM Final report signed by Tess Connelly MD on 02/03/2023 8:59 AM us Don Jeffries MD IM CT PROCEDURES Final Resu lt * SARS CoV-2/COVID-19 by PCR - Rapid (02/03/2023 6:59 AM EST) SARS CoV-2/COVID-1 9 RNA PCR Result Not Detected Not Detected 02/04/2023 10:17 AM EST [facility] Swab Nasopharyngeal structure / Unknown Non-blood Collection / Unknown 02/03/2023 6:59 AM EST 02/03/2023 7:11 AM EST Narrative HEALTHCARE LAB - 02/04/2023 10:17 AM EST This assay is for in vitro diagnostic use under FDA emergency use authorization only. Negative results do not preclude infection with the SARS CoV-2 virus and should not be the sole basis of a patient treatment/management or public health decision. Follow up testing should be performed according to the current CDC recommendations. This test was performed on the Xpert Xpress SARS CoV-2 Plus assay test, a PCR- based method. Negative results should be considered presumptive and do not preclude current or future infection obtained through community transmission or other exposures. Negative results must be considered in the context of an individual's recent exposures, history, presence of clinical signs and symptoms consistent with COVID-19. Niko Rodriguez MD LAB MICROBIOLOGY - GENERAL ORDERABLES Final Result Performing Organization Address City/State/[facility] Co de Phone Number HEALTHCARE LAB [address] [place] [address] * Nasopharyngeal Respiratory Panel (02/03/2023 6:59 AM EST) Nasopharyngeal Respiratory PCR Interpretation Not Detected for all analytes Not Detected for all analytes 02/03/2023 8:57 AM EST [facility] Swab Nasopharyngeal structure / Unknown Non-blood Collection / Unknown 02/03/2023 6:59 AM EST 02/03/2023 7:11 AM EST Narrative [facility]ALTH[facility]ARE LAB - 02/03/2023 8:57 AM EST This assay can detect Adenovirus, Coronavirus, Human [...] Respiratory PCR Panel is performed using the Quench instrument. This assay is for in vitro diagnostic use under the FDA Emergency Use Authorization (EUA) only. [facility] Clinical Microbiology [facility] is certified under the Clinical Laboratory Improvement Amendments of 1988 (CLIA-88) as qualified to perform high complexity clinical laboratory testing. Don Jeffries MD LAB MICROBIOLOGY - GENERAL O RDERABLES Final Result Performing Organization Address City/[facility]/ZIP Co de Phone Number [facility] [address] [place] [address] * (ABNORMAL) POCT glucose meter (02/03/2023 6:58 AM EST) POCT Glucose 185(H) 74 - 99 mg/dL 02/03/2023 6:59 AM EST [facility] Comment:Accuracy of a glucos e result obtained from a capillary whole blood specimen relies upon adequate, non-compromised capillary blood flow. If the capillary glucose result is not consistent with the patient's clinical signs and symptoms, glucose testing should be repeated with either an arterial or venous sample on the glucometer or sent to the main labortory for testing. Comment 02/03/2023 6:59 AM EST [facility] Glassworker ID Pierre Renee 02/03/2023 6:59 AM EST [facility] Device ID [id number] 02/03/2023 6:59 AM EST [facility] Specimen Type POC Capillary 02/03/2023 6:59 AM EST [facility] Blood Capillary blood specimen / Unknown 02/03/2023 6:58 AM EST 02/03/2023 6:59 AM EST Don Jeffries MD LAB POINT OF CARE TE ST DOCKED DEVICE UNSOLICITED RESULTS Final Result Performing Organization Address City/[facility]/ZIP Co de Phone Number [facility] [address] [place] [address] * ED HIV 1/2 Antibody/Antigen Screen w/Reflex to HIV 1/2 Differentiation (02/03/2023 6:48 AM EST) Pathologist [facility] HIV 1 & 2 Antibody/Antigen Screen Non Reactive Non Reactive 02/03/2023 7:53 AM EST [facility] Comment:Screening for HIV 1 & 2 antibodies, and P24 antigen is NONREACTIVE. No confirmatory testing is required. Blood Venous blood specimen / Unknown Venipuncture / Unknown 02/03/2023 6:48 AM EST 02/03/2023 7:09 AM EST us Don Jeffries MD LAB BLOOD ORDERABLES Final R esult Performing Organization Address City/[facility] Co de Phone Number [facility]ALTHCARE LAB [address] [place] [address] * Hepatitis C Antibody - ED (02/03/2023 6:48 AM EST) Pathologist [facility] Hepatitis C Antibody Negative Negative 02/03/2023 7:53 AM EST [facility] Blood Venous blood specimen / Unknown Venipuncture / Unknown 02/03/2023 6:48 AM EST 02/03/2023 7:09 AM EST us Don Jeffries MD LAB BLOOD ORDERABLES Final R esult Performing Organization Address [facility] de Phone Number [facility] [address] [place] [address] * (ABNORMAL) BNP (02/03/2023 6:48 AM EST) Pathologist [facility] N-Terminal, PROBNP, Plasma 67,730(H) 0 - 899 pg/mL 02/03/2023 7:49 AM EST [facility] Blood Venous blood specimen / Unknown Venipuncture / Unknown 02/03/2023 6:48 AM EST 02/03/2023 7:02 AM EST us Don Jeffries MD LAB BLOOD ORDERABLES Final R esult Performing Organization Address City/[facility] de Phone Number [facility]ARE [facility] [address] [place] [address] * (ABNORMAL) Procalcitonin (02/03/2023 6:48 AM EST) Pathologist [facility] Procalcitonin, Plasma 0.34(H) <0.09 ng/mL 02/03/2023 7:44 AM EST [facility] Blood Venous blood specimen / Unknown Venipuncture / Unknown 02/03/2023 6:48 AM EST 02/03/2023 7:02 AM EST Narrative [facility] - 02/03/2023 7:44 AM EST Procalcitonin concentrations in healthy individuals are <0.09 ng/mL. Published data support the following interpretive risk assessment: An elevated procalcitonin result does not always indicate sepsis. Various non-infectious conditions are known to increase procalcitonin. Results should be considered in the context of clinical symptoms and other laboratory tests. Procalcitonin >2.0 ng/mL: Concentrations >2.0 ng/mL on the first day of ICU admission are associated with a higher risk of progression to severe sepsis and/or septic shock. The change in PCT over time may help predict 28 day mortality risk. Please consult [email or web address]-[email or web address]-[email or web address] for more information. Test performed at [facility]. Don Jeffries MD LAB BLOOD ORDERABLES [facility] Performing Organization Address City/[facility] Co de Phone Number [facility]ARE [facility] [address] [place] [address] * (ABNORMAL) Troponin now and 120 min (02/03/2023 6:48 AM EST) Troponin T, High Sensitivity, 0 Hour 218(H) <19 ng/L 02/03/2023 7:42 AM EST [facility] Blood Venous blood specimen / Unknown Venipuncture / Unknown 02/03/2023 6:48 AM EST 02/03/2023 7:02 AM EST Don Jeffries MD LAB BLOOD ORDERABLES Final R esult Performing Organization Address City/[facility]/ZIP Co de Phone Number [facility] [address] [place] [address] * (ABNORMAL) Hemoglobin A1c (02/03/2023 6:48 AM EST) Hemoglobin A1c 6.6(H) <5.7 % 02/03/2023 7:24 AM EST [facility] Blood Venous blood specimen / Unknown Venipuncture / Unknown 02/03/2023 6:48 AM EST 02/03/2023 7:09 AM EST Narrative [facility] - 02/03/2023 7:24 AM EST HA1C Interpretive Data: Diagnosis of Diabetes: Diabetic > or = 6.5% Pre-diabetic 5.7 to 6.4% Non-diabetic < or = 5.6% Glycemic Targets for Type I and Type II Diabetics: Non- Adults <7.0% Adults <6.0% Children and Adolescents <7.5% Source: ??[place] [employer]. Standards of medical care in diabetes,2017. Diabetes Care.2017:40 (suppl 1):S1-S135. HbA1c assay performed by an ion-exchange chromatography method that is certified traceable to the DCCT. us Don Jeffries MD LAB BLOOD ORDERABLES Final R esult [facility] [address] [place] [address] * (ABNORMAL) Blood gas panel, venous (02/03/2023 6:48 AM EST) pH, Venous 7.26(L) 7.32 - 7.43 LAB HEMATOLOGY METHOD 02/03/2023 7:05 AM EST [facility] pCO2, Venous 54 40 - 55 mmHg LAB HEMATOLOGY METHOD 02/03/2023 7:05 AM EST [facility] pO2, Venous 29 25 - 40 mmHg LAB HEMATOLOGY METHOD 02/03/2023 7:05 AM EST [facility] SO2, Measured, Venous 39(L) 65 - 80 % LAB HEMATOLOGY METHOD 02/03/2023 7:05 AM EST [facility] Base Excess, Venous -3.3(L) -2.0 - 3.0 mmol/L LAB HEMATOLOGY METHOD 02/03/2023 7:05 AM EST [facility] Bicarbonate, Calculated, Venous 24 22 - 26 mmol/L LAB HEMATOLOGY METHOD 02/03/2023 7:05 AM EST [facility] Hematocrit, Whole Blood 39.9(L) 40.0 - 51.0 % LAB HEMATOLOGY METHOD 02/03/2023 7:05 AM EST [facility] Sodium, Whole Blood 141 136 - 145 mmol/L LAB HEMATOLOGY METHOD 02/03/2023 7:05 AM EST [facility] Potassium, Whole Blood 5.8(H) 3.6 - 4.9 mmol/L LAB HEMATOLOGY METHOD 02/03/2023 7:05 AM EST [facility] Chloride, Whole Blood 104 97 - 107 mmol/L LAB HEMATOLOGY METHOD 02/03/2023 7:05 AM EST [facility] Glucose, Whole Blood 208(H) 74 - 99 mg/dL LAB HEMATOLOGY METHOD 02/03/2023 7:05 AM EST [facility] Lactate, Venous, Whole Blood 2.1 0.5 - 2.2 mmol/L LAB HEMATOLOGY METHOD 02/03/2023 7:05 AM EST [facility] Ionized Calcium, Whole Blood 4.4(L) 4.6 - 5.1 mg/dL LAB HEMATOLOGY METHOD 02/03/2023 7:05 AM EST [facility] Blood Venous blood specimen / Unknown Venipuncture / Unknown 02/03/2023 6:48 AM EST 02/03/2023 7:02 AM EST us Don Jeffries MD LAB BLOOD ORDERABLES Final R esult Performing Organization Address City/[facility]/ZIP Co de Phone Number [facility] [address] [place] [address] * (ABNORMAL) Phosphorus (02/03/2023 6:48 AM EST) Phosphorus, Plasma 5.3(H) 2.5 - 4.5 mg/dL 02/03/2023 7:42 AM EST [facility] Blood Venous blood specimen / Unknown Venipuncture / Unknown 02/03/2023 6:48 AM EST 02/03/2023 7:02 AM EST us Don Jeffries MD LAB BLOOD ORDERABLES Final R esult [facility] [address] [place] [address] * Magnesium (02/03/2023 6:48 AM EST) Magnesium, Plasma 2.3 1.9 - 2.4 mg/dL 02/03/2023 7:42 AM EST [facility] Blood Venous blood specimen / Unknown Venipuncture / Unknown 02/03/2023 6:48 AM EST 02/03/2023 7:02 AM EST us Don Jeffries MD LAB BLOOD ORDERABLES Final R esult [facility] [address] [place] [address] * (ABNORMAL) CMP (02/03/2023 6:48 AM EST) Glucose, Plasma 227(H) 74 - 99 mg/dL 02/03/2023 7:42 AM EST [facility] BUN, Plasma 70(H) 7 - 21 mg/dL 02/03/2023 7:42 AM EST [facility] Creatinine, Plasma 3.61(H) 0.80 - 1.30 mg/dL 02/03/2023 7:42 AM EST [facility] BUN/Creatinine Ratio 19 02/03/2023 7:42 AM EST [facility] Sodium, Plasma 135(L) 136 - 145 mmol/L 02/03/2023 7:42 AM [facility] Potassium, Plasma 6.1(H) 3.7 - 4.8 mmol/L 02/03/2023 7:42 AM EST [facility] Chloride, Plasma 102 97 - 107 mmol/L 02/03/2023 7:42 AM [facility] CO2, Plasma 21(L) 22 - 29 mmol/L 02/03/2023 7:42 AM EST [facility] Anion Gap 12 6 - 16 mmol/L 02/03/2023 7:42 AM EST [facility] Total Calcium, Plasma 8.4(L) 8.9 - 10.2 mg/dL 02/03/2023 7:42 AM EST [facility] Total Protein 7.1 6.3 - 7.9 g/dL 02/03/2023 7:42 AM EST [facility] Albumin, Plasma 3.4(L) 3.5 - 5.2 g/dL 02/03/2023 7:42 AM EST [facility] AST, Plasma 43 10 - 50 U/L 02/03/2023 7:42 AM EST [facility] ALT, Plasma 19 10 - 50 U/L 02/03/2023 7:42 AM EST [facility] Alkaline Phosphatase, Plasma 137(H) 40 - 115 U/L 02/03/2023 7:42 AM [facility] Total Bilirubin, Plasma 0.3 0.2 - 1.1 mg/dL 02/03/2023 7:42 AM EST [facility] eGFRcr 19.0 mL/min/1.7 3m*2 02/03/2023 7:42 AM EST [facility] Comment:Reported eGFRcr in m L/min/1.73m2 is based the CKD-EPI 2020 equation that does not use a race coefficient. Blood Venous blood specimen / Unknown Venipuncture / Unknown 02/03/2023 6:48 AM EST 02/03/2023 7:02 AM EST us Don Jeffries MD LAB BLOOD ORDERABLES Final R esult Performing Organization Address City/State/[facility] Co de Phone Number [facility] [address] [place] [address] * (ABNORMAL) CBC w/diff (02/03/2023 6:48 AM EST) WBC Count 17.93(H) 3.70 - 10.30 10*3/uL LAB HEMATOLOGY METHOD 02/03/2023 7:05 AM EST [facility] RBC Count 4.55(L) 4.60 - 6.10 10*6/uL LAB HEMATOLOGY METHOD 02/03/2023 7:05 AM EST [facility] HGB 12.9(L) 13.7 - 17.5 g/dL LAB HEMATOLOGY METHOD 02/03/2023 7:05 AM EST [facility] HCT 41.0 40.0 - 51.0 % LAB HEMATOLOGY METHOD 02/03/2023 7:05 AM EST [facility] Platelet Count 249 155 - 369 10*3/uL LAB HEMATOLOGY METHOD 02/03/2023 7:05 AM EST [facility] MCV 90 79 - 98 fL LAB HEMATOLOGY METHOD 02/03/2023 7:05 AM EST [facility] MCH 28.4 26.0 - 32.0 pg LAB HEMATOLOGY METHOD 02/03/2023 7:05 AM EST [facility] MCHC 31.5 30.7 - 35.5 g/dL LAB HEMATOLOGY METHOD 02/03/2023 7:05 AM EST [facility] RDW 14.4 11.5 - 14.5 % LAB HEMATOLOGY METHOD 02/03/2023 7:05 AM EST [facility] MPV 11.0 8.8 - 12.5 fL LAB HEMATOLOGY METHOD 02/03/2023 7:05 AM EST [facility] nRBC 0.0 <=0.0 per 100 WBCs LAB HEMATOLOGY METHOD 02/03/2023 7:05 AM EST [facility] Differential Type Automated LAB HEMATOLOGY METHOD 02/03/2023 7:05 AM EST [facility] Neutrophils % 91.0 % LAB HEMATOLOGY METHOD 02/03/2023 7:05 AM EST [facility] Lymphocytes % 5.0 % LAB HEMATOLOGY METHOD 02/03/2023 7:05 AM EST [facility] Monocytes % 3.0 % LAB HEMATOLOGY METHOD 02/03/2023 7:05 AM EST [facility] Eosinophils % 0.0 % LAB HEMATOLOGY METHOD 02/03/2023 7:05 AM EST [facility] Basophils % 0.0 % LAB HEMATOLOGY METHOD 02/03/2023 7:05 AM [facility] Immature Granulocytes % 1.0 % LAB HEMATOLOGY METHOD 02/03/2023 7:05 AM EST [facility] Neutrophils Absolute 16.39(H) 1.60 - 6.10 10*3/uL LAB HEMATOLOGY METHOD 02/03/2023 7:05 AM [facility] Lymphocytes Absolute 0.85(L) 1.20 - 3.90 10*3/uL LAB HEMATOLOGY METHOD 02/03/2023 7:05 AM EST [facility] Monocytes Absolute 0.58 0.30 - 0.90 10*3/uL LAB HEMATOLOGY METHOD 02/03/2023 7:05 AM EST [facility] Eosinophils Absolute 0.00 0.00 - 0.50 10*3/uL LAB HEMATOLOGY METHOD 02/03/2023 7:05 AM EST [facility] Basophils Absolute 0.02 0.00 - 0.10 10*3/uL LAB HEMATOLOGY METHOD 02/03/2023 7:05 AM [facility] Immature Granulocytes Absolute 0.09(H) 0.00 - 0.06 10*3/uL LAB HEMATOLOGY METHOD 02/03/2023 7:05 AM [facility] Blood Venous blood specimen / Unknown Venipuncture / Unknown 02/03/2023 6:48 AM EST 02/03/2023 7:02 AM EST [facility] - 02/03/2023 7:05 AM EST Therapeutic decision making should be based on absolute values, rather than percentages. us Don Jeffries MD LAB BLOOD ORDERABLES Final R esult Performing Organization Address City/[facility] Co de Phone Number [facility] [address] [place] [address] * ECG Adult (02/03/2023 6:42 AM EST) EKG DIAGNOSIS CLASS Abnormal MUSE ECG Ventricular Rate 85 BPM MUSE ECG Atrial Rate 85 BPM MUSE ECG [place] Interval 146 ms MUSE ECG QRSD Interval 100 ms MUSE ECG QT Interval 398 ms MUSE ECG QTC Interval 473 ms MUSE ECG P [place] 50 degrees MUSE ECG R [place] 5 degrees MUSE ECG T Wave [place] 177 degrees MUSE ECG Diagnosis Normal sinus rhythm MUSE ECG Diagnosis ST & MUSE ECG Diagnosis T wave abnormality, consider inferior ischemia MUSE ECG Diagnosis ST & MUSE ECG Diagnosis T wave abnormality, consider anterolateral ischemia MUSE ECG Diagnosis Borderline QT interval MUSE ECG Diagnosis Abnormal ECG MUSE ECG Diagnosis Need clinical information and correlation MUSE ECG Diagnosis Confirmed by Fortunato Fernandez ([id number]) on 02/03/2023 9:07:45 AM MUSE ECG 02/03/2023 6:42 AM EST 02/03/2023 9:07 AM EST us Don Jeffries MD ECG ORDERABLES Final Result Performing Organization Address [facility] de Phone Number MUSE ECG * [facility] POCUS PROCDOC (02/03/2023 6:29 AM EST) Narrative Don Jeffries MD - 02/03/2023 6:29 AM EST Robby Hairston, DO ? 02/03/2023 ??7:17 AM POC Ultrasound - Bedside Performed by: Robby Hairston, DO Authorized by: Don Jeffries MD ?? Procedure specific details: ?? Limited Cardiac Ultrasound A focused ultrasound of the heart was performed to evaluate for pericardial effusion, tamponade, severe hypovolemia, or gross abnormalities of cardiac anatomy or function in this patient. The ultrasound was performed with the following indications, as noted in the H&P: Dyspnea and Hypoxia Identified structures: The pericardial sac, myocardium, and 4 chambers were identified using the following views: Subxiphoid, Parasternal long axis, Parasternal short axis, and Apical 4 chamber Findings Exam of the above structures revealed the following findings: Pericardial Effusion: Absent Pericardial tamponade: absent Visual estimation of LV function: Moderately depressed Visual estimation of RV size: less than 1:1 RV/LV ratio Other: ?? Impression: Diminished LV function The images were Saved in both Qpath - E and PACS. The study was technically adequate. Comments: ??Global hypokinesis of the left ventricle, decreased squeeze and decreased mitral valve migration us Don Jeffries MD IN CLINIC/BEDSIDE ORDERABLES Final Result documented in this encounter Visit Diagnoses Diagnosis Acute respiratory failure with hypoxia (CMS/HCC)- Primary Shortness of breath Acute respiratory failure with hypoxia (CMS/HCC) Shortness of breath documented in this encounter Admitting Diagnoses Diagnosis Acute respiratory failure with hypoxia (CMS/HCC) Shortness of breath documented in this encounter Administered Medications Inactive Administered Medications - up to 3 most recent administrations Medication Order MAR Action Action Date Dose Rate Site acetaminophen (Tylenol) tablet 650 mg 650 mg, Oral, Every 8 hours PRN, Starting on Wed02/03/23 at 1207, Until Wed02/12/23 at 1701, Routine, moderate pain, mild pain, headaches, fever Given 02/09/2023 8:10 PM EST 650 mg Given 02/04/2023 7:54 PM EST 650 mg Given 02/03/2023 5:59 PM EST 650 mg albuterol (2.5 MG/3ML) 0.083% nebulizer solution 2.5 mg 2.5 mg, Nebulization, Every 6 hours PRN, Starting on Wed02/09/23 at 1900, Until Wed02/12/23 at 1701, Routine, shortness of breath Given 02/10/2023 7:54 AM EST 2.5 mg Given 02/09/2023 9:24 PM EST 2.5 mg aspirin chewable tablet 324 mg 324 mg, Oral, Once, 1 dose, On Wed02/03/23 at 1545, Routine Given 02/03/2023 4:06 PM EST 324 mg aspirin chewable tablet 81 mg 81 mg, Oral, Daily, First dose on [place] 02/04/23 at 0900, Until Discontinued, Routine Given 02/12/2023 8:34 AM EST 81 mg Given 02/11/2023 8:01 AM EST 81 mg Given 02/10/2023 8:14 AM EST 81 mg atorvastatin (Lipitor) tablet 40 mg 40 mg, Oral, Daily, First dose on Wed02/03/23 at 1215, Until Discontinued, Routine Given 02/03/2023 1:54 PM EST 40 mg atorvastatin (Lipitor) tablet 80 mg 80 mg, Oral, Daily, First dose (after last modification) on Wed02/04/23 at 0900, Until Discontinued, Routine Given 02/12/2023 8:34 AM EST 80 mg Given 02/11/2023 8:01 AM EST 80 mg Given 02/10/2023 8:14 AM EST 80 mg bumetanide (Bumex) 4 mg in sodium chloride 0.9 % 66 mL IVPB 4 mg, Intravenous, Once, 1 dose, On Wed02/03/23 at 2105, at 264 mL/hr, Routine New Bag 02/03/2023 9:52 PM EST 4 mg 264 mL/hr bumetanide (Bumex) 4 mg in sodium chloride 0.9 % 66 mL IVPB 4 mg, Intravenous, Once, 1 dose, On Wed02/04/23 at 0340, at 264 mL/hr, Routine New Bag 02/04/2023 4:36 AM EST 4 mg 264 mL/hr bumetanide (Bumex) 4 mg in sodium chloride 0.9 % 66 mL IVPB 4 mg, Intravenous, Once, 1 dose, On Wed02/04/23 at 1030, at 264 mL/hr, Routine New Bag 02/04/2023 12:46 PM EST 4 mg 264 mL/hr bumetanide (Bumex) 4 mg in sodium chloride 0.9 % 66 mL IVPB 4 mg, Intravenous, Once, 1 dose, On Wed02/04/23 at 1800, at 264 mL/hr, Routine New Bag 02/04/2023 6:08 PM EST 4 mg 264 mL/hr bumetanide (Bumex) 4 mg in sodium chloride 0.9 % 66 mL IVPB 4 mg, Intravenous, Once, 1 dose, On Wed02/05/23 at 1415, at 264 mL/hr, Routine New Bag 02/05/2023 3:55 PM EST 4 mg 264 mL/hr carvedilol (Coreg) tablet 12.5 mg 12.5 mg, Oral, 2 times daily, First dose (after last modification) on [place] 02/11/23 at 2100, Until Discontinued, Routine Given 02/12/2023 8:35 AM EST 12.5 mg Given 02/11/2023 8:41 PM EST 12.5 mg carvedilol (Coreg) tablet 6.25 mg 6.25 mg, Oral, 2 times daily, First dose on 02/06/23 at 1445, Until Discontinued, Routine Given 02/11/2023 8:01 AM EST 6.25 mg Given 02/10/2023 8:27 PM EST 6.25 mg Given 02/10/2023 8:14 AM EST 6.25 mg cefTRIAXone (Rocephin) 1 g in sodium chloride 0.9% 100 mL IVPB (Mini-Bag Plus) 1 g, Intravenous, Once, 1 dose, On Wed02/03/23 at 0730, STAT New Bag 02/03/2023 8:11 AM EST 1 g 220 m L/hr cefTRIAXone (Rocephin) 2 g in sodium chloride 0.9% 100 mL IVPB (Mini-Bag Plus) 2 g, Intravenous, Every 24 hours, 3 doses, First dose on [place] 02/04/23 at 0900, Last dose on 02/06/23 at 0900, Routine New Bag 02/06/2023 10:04 AM EST 2 g 220 mL/hr New Bag 02/05/2023 8:31 AM EST 2 g 220 mL/hr New Bag 02/04/2023 9:02 AM EST 2 g 220 mL/hr cloNIDine (Catapres) tablet 0.1 mg 0.1 mg, Oral, 2 times daily, 6 doses, First dose on Wed02/05/23 at 1415, Last dose on Wed02/07/23 at 2100, Routine Given 02/07/2023 9:03 PM EST 0.1 mg Given 02/07/2023 9:43 AM EST 0.1 mg Given 02/06/2023 8:53 PM EST 0.1 mg clopidogrel (Plavix) tablet 300 mg 300 mg, Oral, Once, 1 dose, On Wed02/03/23 at 1545, Routine Given 02/03/2023 4:07 PM EST 300 mg clopidogrel (Plavix) tablet 75 mg 75 mg, Oral, Daily, First dose on [place] 02/04/23 at 0900, Until Discontinued, Routine Given 02/12/2023 8:34 AM EST 75 mg Given 02/11/2023 8:01 AM EST 75 mg Given 02/10/2023 8:14 AM EST 75 mg dextrose 10 % (D10W) bolus 125 mL 125 mL (12.5 g), Intravenous, Every 15 min PRN, Starting on Wed02/03/23 at 1211, Until Wed02/12/23 at 1701, Administer over 15 Minutes, Routine, POC BG 51 to 70 mg/dL New Bag 02/05/2023 3:15 AM EST 125 mL 500 mL/hr dextrose 10 % (D10W) bolus 250 mL 250 mL (25 g), Intravenous, Every 15 min PRN, Starting on Wed02/03/23 at 1211, Until Wed02/12/23 at 1701, Administer over 15 Minutes, Routine, POC BG is less than or equal to 50 mg/dL emollient (Thera-Derm, Eucern) moisturizing lotion Topical, 2 times daily, First dose on Wed02/03/23 at 2100, Until Discontinued, Routine Given 02/12/2023 8:35 AM EST Given 02/11/2023 8:41 PM EST Given 02/11/2023 8:02 AM EST entecavir (Baraclude) tablet 0.5 mg 0.5 mg, Oral, Every 48 hours, First dose on [place] 02/11/23 at 0900, Until Discontinued, Routine Given 02/11/2023 8:06 AM EST 0.5 mg entecavir (Baraclude) tablet 0.5 mg 0.5 mg, Oral, Every 72 hours, First dose (after last modification) on 02/14/23 at 0815, Until Discontinued, Routine fentaNYL (Sublimaze) injection Intravenous, As needed, Starting on Wed02/10/23 at 1306, Until Wed02/10/23 at 1306, Routine, Intraprocedure, sedation Given 02/10/2023 1:06 PM EST 25 mcg fentaNYL (Sublimaze) injection Intravenous, As needed, Starting on Wed02/10/23 at 1309, Until Wed02/10/23 at 1309, Routine, Intraprocedure, sedation Given 02/10/2023 1:09 PM EST 25 mcg furosemide (Lasix) 160 mg in sodium chloride 0.9 % 50 mL IVPB 160 mg, Intravenous, Once, 1 dose, On Wed02/03/23 at 1610, at 71 mL/hr, STAT New Bag 02/03/2023 4:29 PM EST 160 mg 71 mL/hr furosemide (Lasix) injection 40 mg 40 mg, Intravenous, Once, 1 dose, On 02/06/23 at 1630, Routine Given 02/06/2023 5:15 PM EST 40 mg furosemide (Lasix) injection 80 mg 80 mg, Intravenous, Once, 1 dose, On Wed02/03/23 at 0800, STAT Given 02/03/2023 8:03 AM EST 80 mg furosemide (Lasix) injection 80 mg 80 mg, Intravenous, Once, 1 dose, On Wed02/03/23 at 0820, STAT Given 02/03/2023 8:21 AM EST 80 mg glucagon (human recombinant) injection 1 mg 1 mg, Intramuscular, Every 15 min PRN, Starting on Wed02/03/23 at 1211, Until Wed02/12/23 at 1701, Routine, If patient NPO, lacks IV access, May Give IM and POC BG less than or equal to 70 mg/dL, glucose (Glutose) 40 % oral gel 15 grams of glucose 15 grams of glucose, Sublingual, Every 15 min PRN, Starting on Wed02/03/23 at 1211, Until Wed02/12/23 at 1701, Routine, low blood sugar, POC BG 71 to 89 mg/dL Given 02/05/2023 11:40 AM EST 15 grams of glucose glucose (Glutose) 40 % oral gel 15 grams of glucose 15 grams of glucose, Sublingual, Every 15 min PRN, Starting on Wed02/03/23 at 1211, Until Wed02/12/23 at 1701, Routine, low blood sugar, BG 51?to 70 mg/dL glucose (Glutose) 40 % oral gel 30 grams of glucose 30 grams of glucose, Sublingual, Every 15 min PRN, Starting on Wed02/03/23 at 1211, Until Wed02/12/23 at 1701, Routine, low blood sugar, POC BG is less than or equal to 50 mg/dL heparin (porcine) injection 5,000 Units 5,000 Units, Subcutaneous, Every 8 hours scheduled, First dose on Wed02/03/23 at 1205, Until Discontinued, Routine Given 02/03/2023 1:54 PM EST 5,000 Units Left Upper Arm (Back) heparin (porcine) injection 5,000 Units 5,000 Units, Subcutaneous, Every 8 hours scheduled, First dose on Wed02/06/23 at 1445, Until Discontinued, Routine Given 02/12/2023 5:26 AM EST 5,000 Units Left Lower Abdomen Given 02/11/2023 10:17 PM EST 5,000 Units Left Lower Abdomen Given 02/11/2023 2:35 PM EST 5,000 Units L eft Lower Abdomen heparin (porcine) injection 7,500 Units 7,500 Units (rounded from 7,408 Units = 80 Units/kg ? 92.6 kg), Intravenous, Once, 1 dose, On Wed02/03/23 at 1635, Routine Given 02/03/2023 4:33 PM EST 7,500 Units heparin 25,000 units/250 mL (100 unit/mL) infusion - Adult Full Dose Protocol 0-35 Units/kg/hr ? 92.6 kg (0-32.41 mL/hr, rounded to 0-32.4 mL/hr), Intravenous, Titrated, Starting on Wed02/03/23 at 1635, Until Wed02/05/23 at 1636, Routine New Bag 02/05/2023 11:35 AM EST 14 Units/kg/hr 13 mL/hr Rate Change - Dual Sign 02/04/2023 10:27 PM EST 14 Units/k g/hr 13 mL/hr Rate/Dose Verify 02/04/2023 3:30 PM EST 14 Units/kg/hr 13 mL/hr hydrALAZINE (Apresoline) tablet 25 mg 25 mg, Oral, 3 times daily (0600, 1200 & 1800), First dose on Wed02/05/23 at 1800, Until Discontinued, Routine Given 02/10/2023 12:02 PM EST 25 mg Given 02/10/2023 5:01 AM EST 25 mg Given 02/09/2023 6:20 PM EST 25 mg hydrALAZINE (Apresoline) tablet 50 mg 50 mg, Oral, 3 times daily (0600, 1200 & 1800), First dose (after last modification) on Wed02/10/23 at 1800, Until Discontinued, Routine Given 02/12/2023 11:59 AM EST 50 mg Given 02/12/2023 5:25 AM EST 50 mg Given 02/11/2023 6:14 PM EST 50 mg hydrOXYzine pamoate (Vistaril) capsule 50 mg 50 mg, Oral, Every 6 hours PRN, Starting on Wed02/07/23 at 1626, Until Wed02/12/23 at 1701, Routine, anxiety Given 02/11/2023 8:01 AM EST 50 mg Given 02/10/2023 4:18 PM EST 50 mg Given 02/10/2023 5:01 AM EST 50 mg insulin glargine-yfgn 100 UNIT/ML injection 13 Units 13 Units, Subcutaneous, Nightly, First dose (after last modification) on Wed02/10/23 at 2100, Until Discontinued, Routine Given 02/11/2023 8:41 PM EST 13 Units Left Lower Abdomen Given 02/10/2023 9:28 PM EST 13 Units Le ft Lower Abdomen insulin glargine-yfgn 100 UNIT/ML injection 16 Units 16 Units, Subcutaneous, Nightly, First dose (after last modification) on Wed02/08/23 at 2100, Until Discontinued, Routine Given 02/09/2023 8:17 PM EST 16 Units Left Upper Arm (Back ) Given 02/08/2023 8:32 PM EST 16 Units Ri ght Lower Abdomen insulin glargine-yfgn 100 UNIT/ML injection 20 Units 20 Units, Subcutaneous, Nightly, First dose on Wed02/03/23 at 2100, Until Discontinued, Routine Given 02/07/2023 9:03 PM EST 20 Units Left Lower Abdomen Given 02/06/2023 8:53 PM EST 20 Units Le ft Lower Abdomen Given 02/05/2023 8:42 PM EST 20 Units Le ft Upper Abdomen insulin lispro (Admelog) 100 units/mL injection - Correction - Standard Dose 0-5 Units, Subcutaneous, 3 times daily with meals, First dose on Wed02/03/23 at 1230, Until Discontinued, Routine Given 02/12/2023 8:35 AM EST 1 Units Left Lower Abdomen Given 02/09/2023 1:41 PM EST 2 Units Le ft Lower Abdomen Given 02/08/2023 1:20 PM EST 1 Units Le ft Lower Abdomen insulin lispro (Admelog) injection - Correction - Nighttime Dose 0-3 Units, Subcutaneous, 2 times nightly (2100 & 0300), First dose on Wed02/03/23 at 2100, Until Discontinued, Routine Given 02/03/2023 9:03 PM EST 3 Units Left Upper Arm (Back ) Insulin Lispro (Admelog, HumaLOG) 100 UNIT/ML injection 5 Units 5 Units, Subcutaneous, 3 times daily with meals, First dose on Wed02/03/23 at 1230, Until Discontinued, Routine Given 02/12/2023 8:35 AM EST 5 Units Left Upper Abdomen Given 02/11/2023 8:01 AM EST 5 Units Le ft Lower Abdomen Given 02/08/2023 6:29 PM EST 5 Units Le ft Upper Arm (Back) iohexol (OMNIPaque) 350 MG/ML injection 100 mL 100 mL, Intravenous, Once in imaging, 1 dose, Starting on Wed02/03/23 at 0650, Until Wed02/03/23 at 0715, Routine, Imaging Protocol Orders Given 02/03/2023 7:15 AM EST 80 mL ipratropium-albuterol (Duo-Neb) 0.5-2.5 mg/3 mL nebulizer solution - Pyxis Override Pull 1 dose, Starting on Wed02/03/23 at 0639, Until Wed02/03/23 at 0637 Given 02/03/2023 6:37 AM EST ipratropium-albuterol (Duo-Neb) 0.5-2.5 mg/3 mL nebulizer solution 3 mL 3 mL, Nebulization, Once, 1 dose, On Wed02/03/23 at 1825, Routine Given 02/03/2023 6:36 PM EST 3 mL ipratropium-albuterol (Duo-Neb) 0.5-2.5 mg/3 mL nebulizer solution 3 mL 3 mL, Nebulization, Every 4 hours PRN, Starting on Wed02/03/23 at 0644, Until Wed02/09/23 at 1900, Routine, wheezing Given 02/03/2023 3:34 PM EST 3 mL isosorbide dinitrate (Isordil) tablet 20 mg 20 mg, Oral, 3 times daily (0600, 1200 & 1800), First dose on Wed02/05/23 at 1800, Until Discontinued, Routine Given 02/08/2023 11:44 AM EST 20 mg Given 02/08/2023 5:32 AM EST 20 mg Given 02/07/2023 6:52 PM EST 20 mg isosorbide dinitrate (Isordil) tablet 40 mg 40 mg, Oral, 3 times daily (0600, 1200 & 1800), First dose (after last modification) on Wed02/08/23 at 1800, Until Discontinued, Routine Given 02/12/2023 11:59 AM EST 40 mg Given 02/12/2023 5:25 AM EST 40 mg Given 02/11/2023 6:14 PM EST 40 mg lidocaine (Xylocaine) 2 % mouth solution Mouth/Throat, As needed, Starting on Wed02/10/23 at 1259, Until Wed02/10/23 at 1259, Routine, Intraprocedure, Procedure Medication Given 02/10/2023 12:59 PM EST 5 mL lidocaine (Xylocaine) 2 % mouth solution Mouth/Throat, As needed, Starting on Wed02/10/23 at 1303, Until Wed02/10/23 at 1303, Routine, Intraprocedure, Procedure Medication Given 02/10/2023 1:03 PM EST 5 mL LORazepam (Ativan) injection 1 mg 1 mg, Intravenous, Once, 1 dose, On Wed02/03/23 at 0755, STAT Given 02/03/2023 7:57 AM EST 1 mg magnesium sulfate IVPB 2 g 2 g, Intravenous, Once, 1 dose, On 02/06/23 at 1445, Routine New Bag 02/06/2023 2:48 PM EST 2 g 2 5 mL/hr metOLazone (Zaroxolyn) tablet 10 mg 10 mg, Oral, Once, 1 dose, On Wed02/03/23 at 2105, Routine Given 02/03/2023 9:52 PM EST 10 mg metOLazone (Zaroxolyn) tablet 10 mg 10 mg, Oral, Once, 1 dose, On Wed02/04/23 at 0955, Routine Given 02/04/2023 12:14 PM EST 10 mg metOLazone (Zaroxolyn) tablet 10 mg 10 mg, Oral, Once, 1 dose, On Wed02/04/23 at 1730, Routine Given 02/04/2023 5:26 PM EST 10 mg midazolam (Versed) injection Intravenous, As needed, Starting on Wed02/10/23 at 1305, Until Wed02/10/23 at 1305, Routine, Intraprocedure Given 02/10/2023 1:05 PM EST 1 mg midazolam (Versed) injection Intravenous, As needed, Starting on Wed02/10/23 at 1309, Until Wed02/10/23 at 1309, Routine, Intraprocedure Given 02/10/2023 1:09 PM EST 1 mg midazolam (Versed) injection Intravenous, As needed, Starting on Wed02/10/23 at 1311, Until Wed02/10/23 at 1311, Routine, Intraprocedure Given 02/10/2023 1:11 PM EST 1 mg midazolam (Versed) injection Intravenous, As needed, Starting on Wed02/10/23 at 1315, Until Wed02/10/23 at 1315, Routine, Intraprocedure Given 02/10/2023 1:15 PM EST 1 mg midazolam (Versed) injection Intravenous, As needed, Starting on Wed02/10/23 at 1339, Until Wed02/10/23 at 1339, Routine, Intraprocedure Given 02/10/2023 1:39 PM EST 0.5 mg nitroglycerin (Nitrostat) SL tablet 0.4 mg 0.4 mg, Sublingual, Every 5 min PRN, Starting on Wed02/03/23 at 1210, Until Wed02/12/23 at 1701, Routine, chest pain Given 02/04/2023 7:54 PM EST 0.4 mg Given 02/03/2023 6:29 PM EST 0.4 mg ocular lubricant (Artificial Tears) ophthalmic solution 1 drop 1 drop, Both Eyes, As needed, Starting on Wed02/08/23 at 1647, Until Wed02/12/23 at 1701, Routine, irritation Given 02/08/2023 8:37 PM EST 1 drop Given 02/08/2023 5:45 PM EST 1 drop perflutren lipid microspheres (Definity) injection 6.0636 mg 6.0636 mg (rounded from 6.0375 mg = 10 mcL/kg ? 92.6 kg), Intravenous, Once in imaging, 1 dose, Starting on Chelita 02/04/23 at 1205, Until Chelita 02/04/23 at 1206, Routine Given 02/04/2023 12:06 PM EST 6.0636 m g potassium chloride CR (Klor-Con) ER tablet 40 mEq 40 mEq, Oral, Once, 1 dose, On 02/06/23 at 1445, Routine Given 02/06/2023 2:46 PM EST 40 mEq Povidone-Iodine 5 % swab solution 1 Swab Nasal, Daily, 5 doses, First dose on Wed02/06/23 at 2030, Last dose on Wed02/10/23 at 0900, Routine Given 02/10/2023 8:14 AM EST 1 Swab Given 02/09/2023 8:11 PM EST 1 Swab Given 02/08/2023 10:05 AM EST 1 Swab sodium chloride 0.9 % flush 10 mL 10 mL, Intravenous, Every 8 hours PRN, Starting on Wed02/03/23 at 1202, Until Wed02/12/23 at 1701, Routine, line care sodium chloride 0.9 % flush 10 mL 10 mL, Intravenous, As needed, Starting on Wed02/03/23 at 1202, Until Wed02/12/23 at 1701, Routine, line care sodium chloride 0.9 % infusion Intravenous, Continuous PRN, Starting on Wed02/10/23 at 1259, Until Wed02/10/23 at 1348, Routine New Bag 02/10/2023 12:59 PM EST 100 mL/hr 100 mL/hr spironolactone (Aldactone) tablet 12.5 mg 12.5 mg, Oral, Every 24 hours, First dose on Wed02/06/23 at 1445, Until Discontinued, Routine Given 02/06/2023 2:47 PM EST 12.5 mg Tiotropium Orma Monohydrate (Spiriva Respimat) 2.5 MCG/ACT inhaler 2 puff 2 puff, Inhalation, Daily, First dose on Wed02/09/23 at 1930, Until Discontinued, Routine Given 02/11/2023 8:02 AM EST 2 puffs Given 02/10/2023 8:00 AM EST 2 puffs Given 02/09/2023 7:59 PM EST 2 puffs vancomycin IVPB 2500 mg in 500 mL NS 2,500 mg (rounded from 2,430 mg = 25 mg/kg ? 97.2 kg), Intravenous, Once, 1 dose, On Wed02/03/23 at 0730, at 230 mL/hr, STAT Given 02/03/2023 8:40 AM EST 2,500 mg 230 mL/hr documented in this encounter Active and Recently Administered Medications Times are shown in EST. Scheduled Medication Order 02/10/2023 02/11/2023 02/12/2023 aspirin chewable tablet 81 mg 81 mg, Oral, Daily, First dose on Chelita 02/04/23 at 0900, Until Discontinued, Routine 0814 (Given - Provider: Guillermina Chamberlain RN) 08 (Given - Provider: Radha Crowley) 0834 (Given - Provider: Ashley Rodriguez RN) atorvastatin (Lipitor) tablet 80 mg 80 mg, Oral, Daily, First dose (after last modification) on Chelita 02/04/23 at 0900, Until Discontinued, Routine 0814 (Given - Provider: Guillermina Chamberlain RN) 08 (Given - Provider: Radha Crowley) 0834 (Given - Provider: Ashley Rodriguez RN) carvedilol (Coreg) tablet 12.5 mg 12.5 mg, Oral, 2 times daily, First dose (after last modification) on Chelita 02/11/23 at 2100, Until Discontinued, Routine 2040 (Given - Provider: Joanie Warren RN) 0835 (Given - Provider: Ashley Rodriguez RN) carvedilol (Coreg) tablet 6.25 mg (CANCELED) 6.25 mg, Oral, 2 times daily, First dose on [facility] 02/06/23 at 1445, Until Discontinued, Routine 0814 (Given - Provider: Guillermina Chamberlain RN)2026 (Given - Provider: Joanie Warren RN) 0801 (Given - Provider: Radha Crowley) clopidogrel (Plavix) tablet 75 mg 75 mg, Oral, Daily, First dose on Chel[place] 02/04/23 at 0900, Until Discontinued, Routine 0814 (Given - Provider: Guillermina Chamberlain RN) 0801 (Given - Provider: Radha Crowley) 0834 (Given - Provider: Ashley Rodriguez RN) emollient (Thera-Derm, Eucern) moisturizing lotion Topical, 2 times daily, First dose on Wed02/03/23 at 2100, Until Discontinued, Routine 0818 (Given - Provider: Guillermina Chamberlain RN) 0016 (Not Given - Provider: Joanie Warren RN - Reason: Medication not available)0802 (Given - Provider: Radha Crowley)2041 (Given - Provider: Joanie Warren RN) 0835 (Given - Provider: Ashley Rodriguez RN) entecavir (Baraclude) tablet 0.5 mg (CANCELED) 0.5 mg, Oral, Every 48 hours, First dose on Chel[place] 02/11/23 at 0900, Until Discontinued, Routine 0806 (Given - Provider: Radha Crowley) entecavir (Baraclude) tablet 0.5 mg 0.5 mg, Oral, Every 72 hours, First dose (after last modification) on Wed02/14/23 at 0815, Until Discontinued, Routine heparin (porcine) injection 5,000 Units 5,000 Units, Subcutaneous, Every 8 hours scheduled, First dose on 02/06/23 at 1445, Until Discontinued, Routine 0501 (Given - Provider: Lia Nelson)1442 (Given - Provider: Guillermina Chamberlain RN)2128 (Given - Provider: Joanie Warren RN) 0608 (Given - Provider: Joanie Warren RN)1435 (Given - Provider: Radha Crowley)2217 (Given - Provider: Joanie Warren RN) 0526 (Given - Provider: Joanie Warren RN)1351 (Not Given - Provider: Ashley Rodriguez RN - Reason: Patient/family refused - Comment: pt will be discharging) hydrALAZINE (Apresoline) tablet 25 mg (CANCELED) 25 mg, Oral, 3 times daily (0600, 1200 & 1800), First dose on Wed02/05/23 at 1800, Until Discontinued, Routine 0501 (Given - Provider: Lia Nelson)1202 (Given - Provider: Guillermina Chamberlain RN) hydrALAZINE (Apresoline) tablet 50 mg 50 mg, Oral, 3 times daily (0600, 1200 & 1800), First dose (after last modification) on Wed02/10/23 at 1800, Until Discontinued, Routine 1751 (Given - Provider: Guillermina Chamberlain RN) 0608 (Given - Provider: Joanie Warren RN)1211 (Given - Provider: Radha Crowley)1814 (Given - Provider: Radha Crowley) 0525 (Given - Provider: Joanie Warren RN)1159 (Given - Provider: Ashley Rodriguez RN) insulin glargine-yfgn 100 UNIT/ML injection 13 Units 13 Units, Subcutaneous, Nightly, First dose (after last modification) on Wed02/10/23 at 2100, Until Discontinued, Routine 212 (Given - Provider: Joanie Warren RN) 204 (Given - Provider: Joanie Warren RN) insulin lispro (Admelog) 100 units/mL injection - Correction - Standard Dose 0-5 Units, Subcutaneous, 3 times daily with meals, First dose on Wed02/03/23 at 1230, Until Discontinued, Routine 0919 (Not Given - Provider: Guillermina Chamberlain RN - Reason: Hold for condition: must add comment )1227 (Not Given - Provider: Guillermina Chamberlain RN - Reason: Patient in procedure)1746 (Not Given - Provider: Guillermina Chamberlain RN - Reason: Hold for condition: must add comment ) 0802 (Not Given - Provider: Radha Crowley - Reason: Order parameters not met)1202 (Not Given - Provider: Radha Crowley - Reason: Order parameters not met)1735 (Not Given - Provider: Radha Crowley - Reason: Order parameters not met) 0835 (Given - Provider: Ashley Rodriguez RN)1200 (Not Given - Provider: Ashley Rodriguez RN - Reason: Order parameters not met - Comment: d/c and wont be eating) insulin lispro (Admelog) injection - Correction - Nighttime Dose 0-3 Units, Subcutaneous, 2 times nightly (2100 & 0300), First dose on Wed02/03/23 at 2100, Until Discontinued, Routine 0225 (Not Given - Provider: Lia Nelson - Reason: Order parameters not met)2132 (Not Given - Provider: Joanie Warren RN - Reason: Order parameters not met) 0415 (Not Given - Provider: Joanie Warren RN - Reason: Order parameters not met)2029 (Not Given - Provider: Joanie Warren RN - Reason: Order parameters not met) 0208 (Not Given - Provider: Joanie Warren RN - Reason: Order parameters not met) Insulin Lispro (Admelog, HumaLOG) 100 UNIT/ML injection 5 Units 5 Units, Subcutaneous, 3 times daily with meals, First dose on Wed02/03/23 at 1230, Until Discontinued, Routine 0747 (Not Given - Provider: Guillermina Chamberlain RN - Reason: NPO)1156 (Not Given - Provider: Guillermina Chamberlain RN - Reason: NPO)1828 (Not Given - Provider: Ted Ramos RN - Reason: Order parameters not met) 0801 (Given - Provider: Radha Crowley)1202 (Not Given - Provider: Radha Crowley - Reason: Order parameters not met - Comment: patient has eaten less than 50% so holding dose)1735 (Not Given - Provider: Radha Crowley - Reason: Order parameters not met) 0835 (Given - Provider: Ashley Rodriguez RN)1200 (Not Given - Provider: Ashley Rodriguez RN - Reason: Order parameters not met - Comment: d/c and will not be eating) isosorbide dinitrate (Isordil) tablet 40 mg 40 mg, Oral, 3 times daily (0600, 1200 & 1800), First dose (after last modification) on Wed02/08/23 at 1800, Until Discontinued, Routine 0501 (Given - Provider: Lia Nelson)1202 (Given - Provider: Guillermina Chamberlain RN)1751 (Given - Provider: Guillermina Chamberlain RN) 0608 (Given - Provider: Joanie Warren RN)1211 (Given - Provider: Radha Crowley)1814 (Given - Provider: Radha Crowley) 0525 (Given - Provider: Joanie Warren RN)1159 (Given - Provider: Ashley Rodriguez RN) Povidone-Iodine 5 % swab solution 1 Swab (COMPLETED) Nasal, Daily, 5 doses, First dose on Wed02/06/23 at 2030, Last dose on Wed02/10/23 at 0900, Routine 0814 (Given - Provider: Guillermina Chamberlain RN) Tiotropium Orma Monohydrate (Spiriva Respimat) 2.5 MCG/ACT inhaler 2 puff 2 puff, Inhalation, Daily, First dose on Wed02/09/23 at 1930, Until Discontinued, Routine 0800 (Given - Provider: Ashley Nguyen) 0802 (Given - Provider: Radha Crowley) 0900 (Canceled Entry - Provider: Automatic Discharge Provider - Comment: Automatically canceled at discontinue of medication order) PRN Medication Order 02/10/2023 02/11/2023 02/12/2023 acetaminophen (Tylenol) tablet 650 mg 650 mg, Oral, Every 8 hours PRN, Starting on Wed02/03/23 at 1207, Until Wed02/12/23 at 1701, Routine, moderate pain, mild pain, headaches, fever albuterol (2.5 MG/3ML) 0.083% nebulizer solution 2.5 mg 2.5 mg, Nebulization, Every 6 hours PRN, Starting on Wed02/09/23 at 1900, Until Wed02/12/23 at 1701, Routine, shortness of breath 0754 (Given - Provider: Ashley Nguyen) dextrose 10 % (D10W) bolus 125 mL(Linked Group 1) 125 mL (12.5 g), Intravenous, Every 15 min PRN, Starting on Wed02/03/23 at 1211, Until Wed02/12/23 at 1701, Administer over 15 Minutes, Routine, POC BG 51 to 70 mg/dL dextrose 10 % (D10W) bolus 250 mL(Linked Group 2) 250 mL (25 g), Intravenous, Every 15 min PRN, Starting on Wed02/03/23 at 1211, Until Wed02/12/23 at 1701, Administer over 15 Minutes, Routine, POC BG is less than or equal to 50 mg/dL fentaNYL (Sublimaze) injection (COMPLETED) Intravenous, As needed, Starting on Wed02/10/23 at 1306, Until Wed02/10/23 at 1306, Routine, Intraprocedure, sedation 1306 (Given - Provider: Gonzalo Jiménez RN) fentaNYL (Sublimaze) injection (COMPLETED) Intravenous, As needed, Starting on Wed02/10/23 at 1309, Until Wed02/10/23 at 1309, Routine, Intraprocedure, sedation 1309 (Given - Provider: Gonzalo Jiménez, JAME) glucagon (human recombinant) injection 1 mg 1 mg, Intramuscular, Every 15 min PRN, Starting on Wed02/03/23 at 1211, Until Wed02/12/23 at 1701, Routine, If patient NPO, lacks IV access, May Give IM and POC BG less than or equal to 70 mg/dL, glucose (Glutose) 40 % oral gel 15 grams of glucose 15 grams of glucose, Sublingual, Every 15 min PRN, Starting on Wed02/03/23 at 1211, Until Wed02/12/23 at 1701, Routine, low blood sugar, POC BG 71 to 89 mg/dL glucose (Glutose) 40 % oral gel 15 grams of glucose(Linked Group 1) 15 grams of glucose, Sublingual, Every 15 min PRN, Starting on Wed02/03/23 at 1211, Until Wed02/12/23 at 1701, Routine, low blood sugar, BG 51?to 70 mg/dL glucose (Glutose) 40 % oral gel 30 grams of glucose(Linked Group 2) 30 grams of glucose, Sublingual, Every 15 min PRN, Starting on Wed02/03/23 at 1211, Until Wed02/12/23 at 1701, Routine, low blood sugar, POC BG is less than or equal to 50 mg/dL hydrOXYzine pamoate (Vistaril) capsule 50 mg 50 mg, Oral, Every 6 hours PRN, Starting on Wed02/07/23 at 1626, Until Wed02/12/23 at 1701, Routine, anxiety 0501 (Given - Provider: Lia Nelson)1618 (Given - Provider: Guillermina Chamberlain RN) 0801 (Given - Provider: Radha Crowley) lidocaine (Xylocaine) 2 % mouth solution (COMPLETED) Mouth/Throat, As needed, Starting on Wed02/10/23 at 1259, Until Wed02/10/23 at 1259, Routine, Intraprocedure, Procedure Medication 1259 (Given - Provider: CHILO Archer) lidocaine (Xylocaine) 2 % mouth solution (COMPLETED) Mouth/Throat, As needed, Starting on Wed02/10/23 at 1303, Until Wed02/10/23 at 1303, Routine, Intraprocedure, Procedure Medication 1303 (Given - Provider: CHILO Archer) midazolam (Versed) injection (COMPLETED) Intravenous, As needed, Starting on Wed02/10/23 at 1305, Until Wed02/10/23 at 1305, Routine, Intraprocedure 1305 (Given - Provider: Gonzalo Jiménez RN) midazolam (Versed) injection (COMPLETED) Intravenous, As needed, Starting on Wed02/10/23 at 1309, Until Wed02/10/23 at 1309, Routine, Intraprocedure 1309 (Given - Provider: Gonzalo Jiménez RN) midazolam (Versed) injection (COMPLETED) Intravenous, As needed, Starting on Wed02/10/23 at 1311, Until Wed02/10/23 at 1311, Routine, Intraprocedure 1311 (Given - Provider: Gonzalo Jiménez RN) midazolam (Versed) injection (COMPLETED) Intravenous, As needed, Starting on Wed02/10/23 at 1315, Until Wed02/10/23 at 1315, Routine, Intraprocedure 1315 (Given - Provider: Gonzalo Jiménez RN) midazolam (Versed) injection (COMPLETED) Intravenous, As needed, Starting on Wed02/10/23 at 1339, Until Wed02/10/23 at 1339, Routine, Intraprocedure 1339 (Given - Provider: Gonzalo Jiménez, RN) nitroglycerin (Nitrostat) SL tablet 0.4 mg 0.4 mg, Sublingual, Every 5 min PRN, Starting on Wed02/03/23 at 1210, Until Wed02/12/23 at 1701, Routine, chest pain ocular lubricant (Artificial Tears) ophthalmic solution 1 drop 1 drop, Both Eyes, As needed, Starting on Wed02/08/23 at 1647, Until Wed02/12/23 at 1701, Routine, irritation sodium chloride 0.9 % flush 10 mL(Linked Group 3) 10 mL, Intravenous, Every 8 hours PRN, Starting on Wed02/03/23 at 1202, Until Wed02/12/23 at 1701, Routine, line care sodium chloride 0.9 % flush 10 mL(Linked Group 3) 10 mL, Intravenous, As needed, Starting on Wed02/03/23 at 1202, Until Wed02/12/23 at 1701, Routine, line care sodium chloride 0.9 % infusion (COMPLETED) Intravenous, Continuous PRN, Starting on Wed02/10/23 at 1259, Until Wed02/10/23 at 1348, Routine 1259 (New Bag - Provider: Gonzalo Jiménez, RN)1348 (Stopped - Provider: Gonzalo Jiménez RN) Linked Groups Order Group 1: glucose (Glutose) 40 % oral gel 15 grams of glucoseJump to med 15 grams of glucose, Sublingual, Every 15 min PRN, Starting on Wed02/03/23 at 1211, Until Wed02/12/23 at 1701, Routine, low blood sugar, BG 51?to 70 mg/dL Or dextrose 10 % (D10W) bolus 125 mLJump to med 125 mL (12.5 g), Intravenous, Every 15 min PRN, Starting on Wed02/03/23 at 1211, Until Wed02/12/23 at 1701, Administer over 15 Minutes, Routine, POC BG 51 to 70 mg/dL Group 2: dextrose 10 % (D10W) bolus 250 mLJump to med 250 mL (25 g), Intravenous, Every 15 min PRN, Starting on Wed02/03/23 at 1211, Until Wed02/12/23 at 1701, Administer over 15 Minutes, Routine, POC BG is less than or equal to 50 mg/dL Or glucose (Glutose) 40 % oral gel 30 grams of glucoseJump to med 30 grams of glucose, Sublingual, Every 15 min PRN, Starting on Wed02/03/23 at 1211, Until Wed02/12/23 at 1701, Routine, low blood sugar, POC BG is less than or equal to 50 mg/dL Group 3: Insert peripheral IV (COMPLETED) Once, On Wed02/03/23 at 1203, For 1 occurrence And Saline lock IV (COMPLETED) Once, On Wed02/03/23 at 1203, For 1 occurrence And sodium chloride 0.9 % flush 10 mLJump to med 10 mL, Intravenous, Every 8 hours PRN, Starting on Wed02/03/23 at 1202, Until Wed02/12/23 at 1701, Routine, line care And sodium chloride 0.9 % flush 10 mLJump to med 10 mL, Intravenous, As needed, Starting on Wed02/03/23 at 1202, Until Wed02/12/23 at 1701, Routine, line care documented in this encounter Additional Health Concerns Infection Onset Date Last Indicated Resolved Time MRSA Comment:Positive blood culture 03/03/2019 01/30/2024 COVID-19 Rule-Out 02/03/2023 02/03/2023 02/03/2023 7:12 AM EST Respiratory Rule-Out 02/03/2023 02/03/2023 023 8:57 AM EST Assessment Noted Time A Body Mass Index follow-up plan has been documented for the patient 02/12/2023 12:32 PM EST documented as of this encounter Care Teams Knowledge Management Advisor Relationship Specialty Start Date End Date Terence Ring [facility] [place] [address] PCP - General 08/09/20 03/23/23 documented as of this encounter
--- OUTSIDE RECORDS SUMMARY | 2024-02-23 18:58 | XMS_ITS | Encounter Summary ---
Author Organization [facility] Address [address] [place] [address] Care Team Providers Care Business And Marketing Teacher Name Role Phone Terence Ring Primary Care Provider Encounter Details Date Type Department Care Team (Late Contact Info) Description 10/07/2022 Telephone [facility] Outpatient Therapy [address] [place] [address] Madelyn Ovalles Social History Tobacco Use Types Packs/Day Years [...] Upcoming Encounters Date Type Department Care Team ([facility] Contact Info) Description 03/07/2024 1:40 PM EST Office Visit [facility] [place] [address] [facility], [address] [place] [address] Naeem Blunt MD [address] [place] [address] documented as of this encounter Visit Diagnoses Not on filedocumented in this encounter Additional Health Concerns Infection Onset Date Last Indicated Resolved Time MRSA Comment:Positive blood culture 03/03/2019 01/30/2024 documented as of this encounter Care Teams Business And Marketing Teacher Relationship Specialty Start Date End Date Terence Ring [facility] [place] [address] PCP - General 08/09/20 03/23/23 documented as of this encounter
--- OUTSIDE RECORDS SUMMARY | 2024-02-23 18:58 | XMS_ITS | Encounter Summary ---
Author Organization [facility] Address [address] [place] [address] Care Team Providers Care Manager Flight Operations Name Role Phone Terence Ring Primary Care Provider [phone] Encounter Details Date Type Department Care Team (Late st Contact Info) Description 02/01/2023 Orders Only External Location [address] [place] [address] Provider, External Social History Tobacco Use Types [...] drink first t erin in the morning (EYE-ELEMENTARY EDUCATOR) to steady your nerves or to get [...] Description 03/07/2024 1:40 PM EST Office Visit [facility] [place] [address] [facility], [address] [place] [address] Naeem Blunt MD [address] [place] [address] documented as of this encounter Procedures Procedure Name Priority Date/Time Associated Diagnosis Comments XR OUTSIDE IMAGES 02/01/2023 7:29 AM EST documented in this encounter Results * XR OUTSIDE IMAGES (02/01/2023 7:29 AM EST) Anatomical Region Laterality Modality Radiographic Adore ging 02/01/2023 7:29 AM EST us External Provider IMG XR PROCEDURES Final Result documented in this encounter Visit Diagnoses Not on filedocumented in this encounter Additional Health Concerns Infection Onset Date Last Indicated Resolved Time MRSA Comment:Positive blood culture 03/03/2019 01/30/2024 COVID-19 Rule-Out 02/03/2023 02/03/2023 02/03/2023 7:12 AM EST Respiratory Rule-Out 02/03/2023 02/03/2023 023 8:57 AM EST documented as of this encounter Care Teams Manager Flight Operations Relationship Specialty Start Date End Date Terence Ring [facility] [place] [address] PCP - General 08/09/20 03/23/23 documented as of this encounter
--- OUTSIDE RECORDS SUMMARY | 2024-02-23 18:58 | XMS_ITS | Encounter Summary ---
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) Impaired mobility Ajay Goddard MD [address] [facility] [address] [place] [address] Phone: tel: fax: [facility] Outpatient Therapy [address] [place] [address] Phone: tel: fax: Referral ID Status Reason Start Date Expiration Date V isits Requested Visits Authorized [id number] Closed Specialty Services Required 03/06/2022 10/30/2022 1 44 Encounter Details Date Type Department Care Team (Latest Contact Info) Description 10/02/2022 9:10 AM EDT - 10/02/2022 11:59 PM EDT Hospital Encounter [facility] Outpatient Therapy [address] [place] [address] Madelyn Ovalles 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 06/12/2020 02/04/2024 documented as of this encounter Miscellaneous Notes * Addendum Note - Madelyn Ovalles - 10/02/2022 9:45 AM EDTEncounter addended by: Madelyn Ovalles on: 10/14/2022 9:57 AM Actions taken: Clinical Note Signed, Episode resolved * Progress Notes - Madelyn Ovalles - 10/02/2022 9:45 AM EDT [facility] Orth[facility] Rehabilitation Daily Note Name: Buzz Chery : 1965 Diagnosis: Left transfemoral amputation Time In: 9:20 Time Out: 10:10 SUBJECTIVE Patient reports that he doesn't feel very well today. He states that he is feeling light headed andtired. I slept well last night. He reports that he didn't take his blood pressure this morning, but his sugar was 220. He states that he took insulin, but did not eat anything but a glass of milk. He did not bring his glucose monitor. Reports that his mouth is also very dry. Patient requested juice and some crackers and juice. Pain (scale of 0-10): 0/10 OBJECTIVE BP: 168/84 mmHg left UE in sitting Patient felt better after juice cup and wanted to progress with therapy. Procedure/Treatment: Gait training: for 40 minutes Today's Treatment: 10/02/22 Prosthetic Gait training without Assistive Device: 55', 75', 70', 80', 85', 105', 90' with close supervision/occasional CGA with increased distractions. 1 LOB initially with Min A to correct due to fatigue and not clearing prosthesis from the floor. Cues given for foot clearance when fatigued and no other LOB's noted. All ambulation was through hallway and gym areas with multiple distractions and crowds. All ambulation performed in center of hallway with increased anxiety without taylor being nearby. Occasional cues needed to relax shoulders andarm swing which improved continuity of steps. Modalities: None Education Performed: Continue with walking at home without assistive device. Educated patient on importance of blood sugar stability and need to carry glucometer to assure proper care. ASSESSMENT Patient needed several rest breaks today, though seemed improved after juice. PLAN Continue to progress with endurance and gait training. DC next visit. ADDENDUM 10/14/22: Patient did not arrive for last appointment and has been discharged from skilled therapy services. 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
--- OUTSIDE RECORDS SUMMARY | 2024-02-23 18:58 | XMS_ITS | Encounter Summary ---
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) Impaired mobility Ajay Goddard MD [address] [facility] [address] [place] [address] Phone: tel: fax: [facility] Outpatient Therapy [address] [place] [address] Phone: tel: fax: Referral ID Status Reason Start Date Expiration Date V isits Requested Visits Authorized [id number] Closed Specialty Services Required 03/06/2022 10/30/2022 1 44 Encounter Details Date Type Department Care Team (Latest Contact Info) Description 09/30/2022 8:33 AM EDT - 09/30/2022 11:59 PM EDT Hospital Encounter [facility] Outpatient Therapy [address] [place] [address] Madelyn Ovalles 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 Pain (scale of 0-10): 0/10 OBJECTIVE Procedure/Treatment: Gait training: for 32 minutes Today's Treatment: 09/30/22 Prosthetic Gait training without Assistive Device: 159, 93', 108', 88', 144', 55', 59' with close supervision/occasional CGA with increased distractions. 165' with 40' ramp ascend/descend and CGA no LOB with ramp today. Multiple turns and no assistive device. All ambulation was through hallway and gym areas with multiple distractions and crowds. All ambulation performed in center of hallway with increased anxiety without taylor being nearby. Occasional cues needed to relax shoulders and arm swing which improved continuity of steps. Modalities: None Education Performed: Continue with walking at home without assistive device. ASSESSMENT Significant improvement in walking tolerance and endurance today. Occasional cues needed for arm swing and scanning for obstacles. Buzz puri much improved step length, dilshad, and step continuitywhen not looking at feet. PLAN Continue to progress with endurance and gait training. Planning for DC 10/07/2022. 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
--- OUTSIDE RECORDS SUMMARY | 2024-02-23 18:58 | XMS_ITS | Encounter Summary ---
Author Organization [facility] Address [address] [place] [address] Care Team Providers Care Intensive Care Medicine Specialist Name Role Phone Jhonathan Terence Covarrubias Primary Care Provider [phone] Encounter Details Date Type Department Care Team (Latest Contact Info) Description 02/06/2023 Travel Social History Tobacco Use Types Packs/Day [...] in a senior care (including now)? No 02/05/2023 CAGE ASSESSMENT Answer [...] drink first t erin in the morning (EYE-INVESTIGATOR CLAIMS) to steady your nerves or to get [...] Description 03/07/2024 1:40 PM EST Office Visit [facility] [place] [address] [facility], [address] [place] [address] Naeem Blunt MD [address] [place] [address] documented as of this encounter Visit Diagnoses Not on filedocumented in this encounter Additional Health Concerns Infection Onset Date Last Indicated Resolved Time MRSA Comment:Positive blood culture 03/03/2019 01/30/2024 Assessment Noted Time A Body Mass Index follow-up plan has been documented for the patient 02/12/2023 12:32 PM EST documented as of this encounter Care Teams Intensive Care Medicine Specialist Relationship Specialty Start Date End Date Terence Ring [address] [place], [place] [id number] PCP - General 08/09/20 03/23/23 documented as of this encounter
--- OUTSIDE RECORDS SUMMARY | 2024-02-23 18:58 | XMS_ITS | Encounter Summary ---
Author Organization [facility] Address [address] [place] [address] Care Team Providers Care Cross Country Coach Name Role Phone Jhonathan Terence Covarrubias Primary Care Provider [phone] Encounter Details Date Type Department Care Team (Latest Contact Info) Description 02/04/2023 Travel Social History Tobacco Use Types Packs/Day [...] slept in a correction (including now)? No 02/05/2023 CAGE ASSESSMENT Answer [...] drink first t erin in the morning (EYE-ELEVATOR ATTENDANT) to steady your nerves or to get [...] Description 03/07/2024 1:40 PM EST Office Visit [facility] [place] [address] [facility], [address] [place] [address] Naeem Blunt MD [address] [place] [address] documented as of this encounter Visit Diagnoses Not on filedocumented in this encounter Additional Health Concerns Infection Onset Date Last Indicated Resolved Time MRSA Comment:Positive blood culture 03/03/2019 01/30/2024 Assessment Noted Time A Body Mass Index follow-up plan has been documented for the patient 02/12/2023 12:32 PM EST documented as of this encounter Care Teams Cross Country Coach Relationship Specialty Start Date End Date Terence Ring [address] [place], [place] [id number] PCP - General 08/09/20 03/23/23 documented as of this encounter
--- OUTSIDE RECORDS SUMMARY | 2024-02-23 18:58 | XMS_ITS | Encounter Summary ---
Author Organization [facility] Address [address] [place] [address] Care Team Providers Care C Consultant Name Role Phone Terence Ring Primary Care Provider [phone] Encounter Details Date Type Department Care Team (Latest Contact Info) Description 02/03/2023 Travel Social History Tobacco Use Types Packs/Day [...] Description 03/07/2024 1:40 PM EST Office Visit [facility] [place] [address] [facility], [address] [place] [address] Naeem Blunt MD [address] [place] [address] documented as of this encounter [...] documented as of this encounter Care Teams C Consultant Relationship Specialty Start Date End Date Terence Ring [address] [place], [place] [id number] PCP - General 08/09/20 03/23/23 documented as of this encounter
--- OUTSIDE RECORDS SUMMARY | 2024-02-23 18:58 | XMS_ITS | Encounter Summary ---
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) Impaired mobility Ajay Goddard MD [address] [facility] [address] [place] [address] Phone: tel: fax: [facility] Outpatient Therapy [address] [place] [address] Phone: tel: fax: Referral ID Status Reason Start Date Expiration Date V isits Requested Visits Authorized [id number] Closed Specialty Services Required 03/06/2022 10/30/2022 1 44 Encounter Details Date Type Department Care Team (Latest Contact Info) Description 09/23/2022 8:46 AM EDT - 09/23/2022 11:59 PM EDT Hospital Encounter [facility] Outpatient Therapy [address] [place] [address] Madelyn Ovalles 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 I was thinking of going to the park this weekend and watching the fireworks. Pain (scale of 0-10): 0/10 OBJECTIVE Procedure/Treatment: Gait training: for 44 minutes Today's Treatment: 09/23/22 Prosthetic Gait training without Assistive Device: 118', 175'x2, with close supervision/occasional CGA with increased distractions. 173' with 40' rampascend/descend and CGA, handrail needed 1x ascending due to LOB due to wide ABHILASH, and 2 LOB's descending due to early knee flexion. Multiple turns and no assistive device. All ambulation was through hallway and gym areas with multiple distractions and crowds. All ambulation performed in center of [facility] with increased anxiety without taylor being nearby. Modalities: None Education Performed: Continue with walking at home without assistive device. ASSESSMENT Significant improvement in walking tolerance and endurance today. Occasional cues needed for arm swing and scanning for obstacles. Buzz puri much improved step length, dilshad, and step continuitywhen not looking at feet. PLAN Continue to progress with endurance and gait training. 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
--- OUTSIDE RECORDS SUMMARY | 2024-02-23 18:58 | XMS_ITS | Encounter Summary ---
Author Organization [facility] Address [address] [place] [address] Care Team Providers Care Business Administration Teacher Name Role Phone Terence Ring Primary Care Provider [phone] Encounter Details Date Type Department Care Team (Latest Contact Info) Description 09/30/2022 Travel Social History Tobacco Use Types Packs/Day [...] Description 03/07/2024 1:40 PM EST Office Visit [facility] [place] [address] [facility], [address] [place] [address] Naeem Blunt MD [address] [place] [address] documented as of this encounter Visit Diagnoses Not on filedocumented in this encounter Additional Health Concerns Infection Onset Date Last Indicated Resolved Time MRSA Comment:Positive blood culture 03/03/2019 01/30/2024 documented as of this encounter Care Teams Business Administration Teacher Relationship Specialty Start Date End Date Terence Ring [facility] [address] [place] [address] PCP - General 08/09/20 03/23/23 documented as of this encounter
--- OUTSIDE RECORDS SUMMARY | 2024-02-23 18:58 | XMS_ITS | Encounter Summary ---
Author Organization [facility] Address [address] [place] [address] Care Team Providers Care Ux Visual Designer Name Role Phone Terence Ring Primary Care Provider [phone] Encounter Details Date Type Department Care Team (Late st Contact Info) Description 02/03/2023 Orders Only External Location [address] [place] [address] Provider, External Social History Tobacco Use Types [...] slept in a fci (including now)? No 02/05/2023 CAGE ASSESSMENT Answer [...] drink first t erin in the morning (EYE-INFORMATION CLERK CASHIER) to steady your nerves or to [...] Description 03/07/2024 1:40 PM EST Office Visit [facility] [place] [address] [facility], [address] [place] [address] Naeem Blunt MD [address] [place] [address] documented as of this encounter Procedures Procedure Name Priority Date/Time Associated Diagnosis Comments POC ULTRASOUND 02/03/2023 documented in this encounter Results * POC Imaging (02/03/2023) Anatomical Region Laterality Modality Pelvis Other 02/03/2023 us External Provider IMG POINT OF CARE [...] documented as of this encounter Care Teams Ux Visual Designer Relationship Specialty Start Date End Date Terence Ring [facility] [place] [address] PCP - General 08/09/20 03/23/23 documented as of this encounter
--- OUTSIDE RECORDS SUMMARY | 2024-02-23 18:58 | XMS_ITS | Encounter Summary ---
Author Organization [facility] Address [address] [place] [address] Care Team Providers Care Rehabilitation Teacher Name Role Phone Terence Ring Primary Care Provider [phone] Encounter Details Date Type Department Care Team (Latest Contact Info) Description 09/18/2022 Travel Social History Tobacco Use Types Packs/Day [...] Description 03/07/2024 1:40 PM EST Office Visit [facility] [place] [address] [facility], [address] [place] [address] Naeem Blunt MD [address] [place] [address] documented as of this encounter Visit Diagnoses Not on filedocumented in this encounter Additional Health Concerns Infection Onset Date Last Indicated Resolved Time MRSA Comment:Positive blood culture 03/03/2019 01/30/2024 documented as of this encounter Care Teams Rehabilitation Teacher Relationship Specialty Start Date End Date Terence Ring [facility] [employer] [place] [address] PCP - General 08/09/20 03/23/23 documented as of this encounter
--- OUTSIDE RECORDS SUMMARY | 2024-02-23 18:58 | XMS_ITS | Encounter Summary ---
Author Organization [facility] Address [address] [place] [address] Care Team Providers Care Adjunct Physics Instructor Name Role Phone Terence Ring Primary Care Provider [phone] Reason for Visit * Reason Onset Date Comments Therapy 10/09/2022 Left voicemail f or patient reminding him he has no appointment scheduled for Wednesday and that if he wants to come in for his last appointment, he is scheduled for 10/14 at 9:45. Encounter Details Date Type Department Care Team (Late st Contact Info) Description 10/09/2022 Telephone External Location [address] [place] [address] Pcp, No [address] [place] [address] Therapy (Left voicemail for patient reminding him he has no appointment scheduled for Wednesday and that if he wants to come in for his last appointment, he is scheduled for 10/14 at 9:45.) Social History Tobacco Use Types Packs/Day Years [...] encounter Miscellaneous Notes * Telephone Encounter - Diane Adams - 10/09/2022 7:14 AM EDT Left voicemail for patient reminding him he has no appointment scheduled for Wednesday and that if he wants to come in for his last appointment, he is scheduled for 10/14 at 9:45. documented in this encounter Plan of Treatment Upcoming Encounters Date Type Department Care Team (Late st Contact Info) Description 03/07/2024 1:40 PM EST Office Visit [facility] [place] [address] [facility], [address] [place] [address] Naeem Blunt MD [address] [place] [address] documented as of this encounter Visit Diagnoses Not on filedocumented in this encounter Additional Health Concerns Infection Onset Date Last Indicated Resolved Time MRSA Comment:Positive blood culture 03/03/2019 01/30/2024 documented as of this encounter Care Teams Adjunct Physics Instructor Relationship Specialty Start Date End Date Terence Ring [address] [place] [address] PCP - General 08/09/20 03/23/23 documented as of this encounter
--- OUTSIDE RECORDS SUMMARY | 2024-02-23 18:58 | XMS_ITS | Encounter Summary ---
Author Organization [facility] Address [address] [place] [address] Care Team Providers Care Senior Controller Name Role Phone Terence Ring Primary Care Provider [phone] Encounter Details Date Type Department Care Team (Latest Contact Info) Description 10/02/2022 Travel Social History Tobacco Use Types Packs/Day [...] Description 03/07/2024 1:40 PM EST Office Visit [facility] [place] [address] [facility], [address] [place] [address] Naeem Blunt MD [address] [place] [address] documented as of this encounter Visit Diagnoses Not on filedocumented in this encounter Additional Health Concerns Infection Onset Date Last Indicated Resolved Time MRSA Comment:Positive blood culture 03/03/2019 01/30/2024 documented as of this encounter Care Teams Senior Controller Relationship Specialty Start Date End Date Terence Ring [facility] [place] [address] PCP - General 08/09/20 03/23/23 documented as of this encounter
--- OUTSIDE RECORDS SUMMARY | 2024-02-23 18:59 | XMS_ITS | Encounter Summary ---
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 [address] [place] [address] Phone: tel: fax: [facility] Outpatient Therapy [address] [place] [address] Phone: tel: fax: Referral ID Status Reason Start Date Expiration Date V isits Requested Visits Authorized [id number] Closed Specialty Services Required 03/06/2022 10/30/2022 1 44 Encounter Details Date Type Department Care Team (Latest Contact Info) Description 07/31/2022 9:07 AM EDT - 07/31/2022 11:59 PM EDT Hospital Encounter [facility]patient Therapy [address] [place] [address] Madelyn Ovalles Acquired absence of [...] on file Sexual Orientation Not on file COVID-19 Exposure Response Date Recorded In the last 10 days, have yo u been in contact with someone who was confirmed or suspected to have Coronavirus/COVID-19? No / Unsure 07/22/2022 8:49 AM EDT documented as of this encounter Medications at Time of Discharge insulin detemir (Levemir) 100 UNIT/ML injection pen Inject 7-8 Units under the skin every night. 06/12/2020 02/04/2024 documented as of this encounter Miscellaneous Notes * Progress Notes - Madelyn Ovalles - 07/31/2022 9:45 AM EDT [facility] Daily Note Name: Buzz Hurley : 1965 Diagnosis: L transfemoral amputation Time In: 9:32 Time Out: 10:20 SUBJECTIVE Patient reports that he's pretty good today. Pain (scale of 0-10): 0/10 OBJECTIVE Procedure/Treatment: Gait training with and without zeroG to improve stance phase on prosthesis and step length for 48 minutes Today's Treatment: 07/31/22 Prosthetic Gait Training with ZeroG: with 10% Body Weight Support and 4 fall control, XL harness with thigh straps. Ambulation without assistive device: cues for weight shift and Right step length 90'x2 10% bodyweight support with good mechanics approximately 95% of time, 90' x2 with cone avoidance (not placed directly in walking path, but offset enough to be distraction) and with 1.5 and 3 foam to step over. Improved maintaining good mechanics. Improved mechanics on second lap and performed approximately 80%. Difficulty clearing foot with stepping over object with 1 LOB 90' x2 with stability ball rolling across walking path. Prosthetic Gait Training: Patient ambulated 30' then 40' then 55' with no assistive device. Good step length approximately 85% of time. Improved step continuity. Patient had 2 LOB's during second ambulation due to fatigue and ambulating further from wall which increased anxiety. Therapeutic Activity with ZeroG: (not performed) with 15% Body Weight Support and 4 fall control. Sit<>Stand with out assistive device followed by stand pivot transfer to perpendicular chair x5 reps each direction. Occasional anterior loss of balance, though no fall assist recovery necessary. Picking up 1.1# ball from floor with SBQC x5 attempts (1 success) Modalities: None Education Performed: ZeroG use and safety Initiating home ambulation with Single Tip Cane. ASSESSMENT Patient tolerated Zero-G gait training with obstacles and carrying things with moderate anxiety. Improved obstacle avoidance. Progressing well with ambulating without assistive device, increasing time and distance. PLAN Mr. Hurley would benefit from continued gait training with and without Zero-G. Continue with obstacle avoidance and distractions. Begin working on outdoor ambulation with single point vs quad cane. Practice functional activities like picking things up from floor, carrying and placing on shelf or table with least restrictive Assistive Device. documented in this encounter Plan of Treatment Upcoming Encounters Date Type Department Care Team (Late st Contact Info) Description 03/07/2024 1:40 PM EST Office Visit [facility] [place] [address] 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
--- OUTSIDE RECORDS SUMMARY | 2024-02-23 18:59 | XMS_ITS | Encounter Summary ---
Author Organization [facility] Address [address] [place] [address] Care Team Providers Care Offset Machine Operator Name Role Phone Terence Ring Primary Care Provider [phone] Encounter Details Date Type Department Care Team (Latest Contact Info) Description 07/22/2022 Travel Social History Tobacco Use Types Packs/Day [...] AM EDT documented as of this encounter Plan of Treatment Upcoming Encounters Date Type Department Care Team (Late st Contact Info) Description 03/07/2024 1:40 PM EST Office Visit [facility] [place] [address] [facility], [address] [place] [address] Naeem Blunt MD [address] [place] [address] documented as of this encounter Visit Diagnoses Not on filedocumented in this encounter Additional Health Concerns Infection Onset Date Last Indicated Resolved Time MRSA Comment:Positive blood culture 03/03/2019 01/30/2024 documented as of this encounter Care Teams Offset Machine Operator Relationship Specialty Start Date End Date Terence Ring [facility] [address] PCP - General 08/09/20 03/23/23 documented as of this encounter
--- OUTSIDE RECORDS SUMMARY | 2024-02-23 18:59 | XMS_ITS | Encounter Summary ---
Author Organization [facility] Address [address] [place] [address] Care Team Providers Care Insurance Instructor Name Role Phone Terence Ring Primary Care Provider [phone] Encounter Details Date Type Department Care Team (Latest Contact Info) Description 07/17/2022 Travel Social History Tobacco Use Types Packs/Day [...] suspected to have Coronavirus/COVID-19? No / Unsure 07/17/2022 9:29 AM EDT documented as of this encounter Plan of Treatment Upcoming Encounters Date Type Department Care Team (Late st Contact Info) Description 03/07/2024 1:40 PM EST Office Visit [facility] [place] [address] [facility], [address] [place] [address] Naeem Blunt MD [address] [place] [address] documented as of this encounter Visit Diagnoses Not on filedocumented in this encounter Additional Health Concerns Infection Onset Date Last Indicated Resolved Time MRSA Comment:Positive blood culture 03/03/2019 01/30/2024 documented as of this encounter Care Teams Insurance Instructor Relationship Specialty Start Date End Date Terence Ring [facility] [place] [address] PCP - General 08/09/20 03/23/23 documented as of this encounter
--- OUTSIDE RECORDS SUMMARY | 2024-02-23 18:59 | XMS_ITS | Encounter Summary ---
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) Impaired mobility Ajay Goddard MD [address] [facility] [address] [place] [address] Phone: tel: fax: [facility] Outpatient Therapy [address] [place] [address] Phone: tel: fax: Referral ID Status Reason Start Date Expiration Date V isits Requested Visits Authorized [id number] Closed Specialty Services Required 03/06/2022 10/30/2022 1 44 Encounter Details Date Type Department Care Team (Latest Contact Info) Description 06/12/2022 8:50 AM EDT - 06/12/2022 11:59 PM EDT Hospital Encounter [facility] Outpatient Therapy [address] [place] [address] Madelyn Ovalles Acquired absence of [...] suspected to have Coronavirus/COVID-19? No / Unsure 06/12/2022 8:50 AM EDT documented as of this encounter Medications at Time of Discharge insulin detemir (Levemir) 100 UNIT/ML injection pen Inject 7-8 Units under the skin every night. 06/12/2020 02/04/2024 documented as of this encounter Miscellaneous Notes * Progress Notes - Madelyn Ovalles - 06/12/2022 9:45 AM EDT [facility] Orth[facility] Rehabilitation Daily Note Name: Buzz Hurley : 1965 Diagnosis: L transfemoral amputation Time In: 9:33 Time Out: 10:17 SUBJECTIVE Patient reports that he's pretty good today. Pain (scale of 0-10): 0/10 OBJECTIVE Procedure/Treatment: Therapeutic Activities: Refer to exercise flowsheet. 14 minutes. Gait training with and without zeroG to improve stance phase on prosthesis and step length for 30 minutes Today's Treatment: 06/12/22 Prosthetic Gait Training with ZeroG: with 15-20% Body Weight Support and 4 fall control, L harnesswith thigh straps. Ambulation without assistive device: cues for weight shift and Right step length. 90'x2 with 5 turns - 20% body weight support with poor mechanics and multiple episodes of balance loss, unable to correct with cues. Ambulation 90'x2 15% bodyweight support, continues to have difficulty with turns. Therapeutic Activity with ZeroG: with 15% Body Weight Support and 4 fall control. Sit<>Stand with out assistive device followed by stand pivot transfer to perpendicular chair x5 reps each direction. Occasional anterior loss of balance, though no fall assist recovery necessary. Picking up 1.1# ball from floor with SBQC x5 attempts (1 success) Prosthetic Gait Training (not performed): Patient ambulated 75' with Single Tip Cane and Contact Guard Assist with wheelchair follow, working on increasing Left weight shift and Right step length, rolling off prosthetic toe to initiate swing phase, and heel strike to initiate prosthetic knee extension. Patient had no LOB's. Modalities: None Education Performed: ZeroG use and safety Increased muscle soreness and fatigue after therapy sessions due to increased postural and gluteal muscle activation with decreased upper extremity support while walking. Safety on therapy days when patient is fatigued. Also noted that patient may not be fatigued, but may have muscular fatigue after therapy session that can put patient at a risk for falling. ASSESSMENT Able to successfully ambulate without assistive device in ZeroG today at 15% body weight support. Continued difficulty with pivot turns, though improved after stand pivot transfers. Patient was very fatigued attempts to sisal picker objects from the floor. Patient needed w/c transport to return to waiting room due to Right knee fatigue. PLAN Mr. Hurley would benefit from continued gait training with ZeroG with focus on consistent Right Steplength, Left stance and swing phases. Continue to work with 10-15% body weight support to improve mechanics without assistive device in straight planes continue to work on turning and slowly decreasebody weight support as tolerated. 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
--- OUTSIDE RECORDS SUMMARY | 2024-02-23 18:59 | XMS_ITS | Encounter Summary ---
Author Organization [facility] Address [address] [place] [address] Care Team Providers Care Multifocal Button Generator Name Role Phone Terence Ring Primary Care Provider [phone] Encounter Details Date Type Department Care Team (Latest Contact Info) Description 09/09/2022 Travel Social History Tobacco Use Types Packs/Day [...] Description 03/07/2024 1:40 PM EST Office Visit [facility] [place] [address] [facility], [address] [place] [address] Naeem Blunt MD [address] [place] [address] documented as of this encounter Visit Diagnoses Not on filedocumented in this encounter Additional Health Concerns Infection Onset Date Last Indicated Resolved Time MRSA Comment:Positive blood culture 03/03/2019 01/30/2024 documented as of this encounter Care Teams Multifocal Button Generator Relationship Specialty Start Date End Date Terence Ring [facility] [address] PCP - General 08/09/20 03/23/23 documented as of this encounter
--- OUTSIDE RECORDS SUMMARY | 2024-02-23 18:59 | XMS_ITS | Encounter Summary ---
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) Impaired mobility Ajay Goddard MD [address] [facility] [address] [place] [address] Phone: tel: fax: [facility] Outpatient Therapy [address] [place] [address] Phone: tel: fax: Referral ID Status Reason Start Date Expiration Date V isits Requested Visits Authorized [id number] Closed Specialty Services Required 03/06/2022 10/30/2022 1 44 Encounter Details Date Type Department Care Team (Latest Contact Info) Description 06/10/2022 9:34 AM EDT - 06/10/2022 11:59 PM EDT Hospital Encounter [facility] Outpatient Therapy [address] [place] [address] Madelyn Ovalles Acquired absence of [...] suspected to have Coronavirus/COVID-19? No / Unsure 06/10/2022 9:33 AM EDT documented as of this encounter Medications at Time of Discharge insulin detemir (Levemir) 100 UNIT/ML injection pen Inject 7-8 Units under the skin every night. 06/12/2020 02/04/2024 documented as of this encounter Miscellaneous Notes * Progress Notes - Madelyn Ovalles - 06/10/2022 9:45 AM EDT [facility] Orthopedic Rehabilitation PT 30 Day Progress Report Time in: 932 Time out: 10:13 Date: 06/10/22 Name: Buzz Hurley : 1965 Past 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: Diagnosis Date Personal history [...] Placement from [employer] CHOLECYSTECTOMY N/A Cholecystectomy from [employer] SUBJECTIVE Patient reports that his blood sugars and blood pressure have been not too bad. Patient reports that he is noticing slow changes with his mobility. Patient reports that he seems to have an easier time with his cane at home. Referring Physician: Ajay Goddard MD/Erik Hurley MD Onset/Surgery Date: 03/08/2019 Pain (scale of 0-10): Location: residual limb Current Pain: 0/10 Highest Pain: 2/10 Lowest Pain: 0/10 Restriction/Precautions: none Patient Goals: To be able to walk without a cane. OBJECTIVE Gait: Community ambulation with Rolling Walker and Home ambulation with LBQC With LBQC: Patient demos decreased Left weight shift and Left stance time with 3 point gait. He continues to have poor toe off due to decreased right step length allowing for poor knee swing and occasional circumduction to clear foot. With RW: Patient demos symmetrical stance time, however pt has significant forward flexion at hips and poor hip extension activation. Cues given to keep walker closer to improved glute recruitment, however patient corrects x2-3 steps then returns to previous hip flexed gait. AROM (In Degrees): Initial Current Left Right Not Assessed Hip Flexion WNL WNL Hip Extension 0 deg WNL Hip Abduction WNL WNL Strength/Motor Control: Left Right Hip Flexion 5/5* 5/5 Hip Extension 3-/5* 4/5 Hip Abduction 5/5* 4+/5 Knee Flexion N/A 4+/5 Knee Extension N/A 5/5 Ankle DF N/A 4/5 Ankle Ev N/A 5/5 Ankle Inv N/A 4+/5 *Left with prosthesis Outcome Measure/Functional Tests: Initial Reassess 04/22/22 05/13/22 06/10/22 AMPRO: 31/47 32/47 30/47 33/47 K1 (15-) K2 (-) K3 (-) K4 (-) TUG: Initial: 45.02 with wide-base quad cane. (>19 seconds indicated high risk of falls) 04/22/22: 37.8 sec with wide based quad cane. 05/13/22: 43.2 sec with wide based quad cane. 06/10/22: 50.2 sec with wide based quad cane. 6MWT with LBQC: Initial: not assessed 04/22/22: 235' with 1 seated rest break (at 161'/4 minutes, lasting 45 seconds) with Rolling Walker 05/13/22: 186' with 1 seated rest break (at 116'/4.5 minutes, lasting 45 seconds) with LBQC 06/10/22: 144' without rest (stopped at 5' to rest and did not resume) with LBQC Procedure/Treatment: PT Assessment Therapeutic Activity: Functional Mobility and Balance Testing x40 minutes. Modalities: None Education Performed: Plan of Care - Progress made and Goals Reviewed ASSESSMENT Buzz Hurley is a 56 y.o. male who presents with a primary complaint of difficulty ambulating without assistive device. 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 Buzz made significant functional mobility improvement with a 3 point increase on AMPRO, though decreased performance with TUG. He demonstrates decreased distance with 6MWT with LBQC, however performed his longest walk(time and distance) without needing a rest break. Patient has had improved medical condition, whichis allowing him to be more active at home and more participatory with therapy. Mr. Hurley is making slow gains and would benefit from continuing skilled therapy services for 4 more weeks to focus on ga it, balance, and functional mobility training. Primary Language: [place] Needs communication device: No Does the patient understand basic information? Yes, able to self manage. Barriers to learning: None Cultural/Scientology beliefs: None that will affect treatment Rehab Potential/Prognosis: Good Personal Factors/Comorbidities Affecting Care: Pre-Injury Condition , Prior history of condition, and Fear avoidance behavior Complexity: Moderate Complexity using Standard PT Assessment (08202) PLAN Patient to be seen 2 times per week for 4 weeks. Treatment/Interventions may include: Patient education, Development of HEP, Therapeutic Exercise, Therapeutic Activity, and Manual Therapy. Gait Training, Prosthetic Training and Neuromuscular Rehab. Short Term Goals (4 weeks): Patient will demonstrate independence with home exercise program for improved strength, ROM, balance and endurance to perform functional activities. - Progressing Patient will report and/or demonstrate independence with bilateral LE skin checks, skin care, sock management, and wearing schedule. - Met Patient will demonstrate >/= 3+ gluteus drew strength for improved prosthetic control with ambulation. Patient will ambulate 125' with LBQC assistive device for independent home ambulation. - Met Patient will be able to stand x 3 minutes with 1 Upper Extremity assist for ADL's. Met Longterm Goals (4 weeks): Patient will demonstrate > 37/47 on the AMPRO to return to ambulation in the park. - Progressing(33/47) Patient will demonstrate TUG in </=19 seconds with LBQC for significantly improved safety with household ambulation. (< 19.0 sec for decreased risk of falls in amputee population) Patient will demonstrate >/= 4+/5 lower extremity strength for improved independence with IADLs. Patient will report walking around home without assistive device and modified independence. documented in this encounter Plan of Treatment Upcoming Encounters Date Type Department Care Team (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
--- OUTSIDE RECORDS SUMMARY | 2024-02-23 18:59 | XMS_ITS | Encounter Summary ---
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) Impaired mobility Ajay Goddard MD [address] [facility] [address] [place] [address] Phone: tel: fax: [facility] Outpatient Therapy [address] [place] [address] Phone: tel: fax: Referral ID Status Reason Start Date Expiration Date V isits Requested Visits Authorized [id number] Closed Specialty Services Required 03/06/2022 10/30/2022 1 44 Encounter Details Date Type Department Care Team (Latest Contact Info) Description 09/09/2022 9:07 AM EDT - 09/09/2022 11:59 PM EDT Hospital Encounter [facility] Outpatient Therapy [address] [place] [address] Madelyn Ovalles Acquired absence of [...] * Progress Notes - Madelyn Ovalles - 09/09/2022 9:45 AM EDT [facility] Orthopedic Rehabilitation Daily Note Name: Buzz Hurley : 1965 Diagnosis: Left transfemoral amputation Time In: 9:45 Time Out: 10:23 SUBJECTIVE Patient reports that he went [employer] shopping and out to eat with his son this past weekend. He reports that he went with his cane. I've folded up the walker and put it away. He is practicing walking at home without cane in hallway. Pain (scale of 0-10): 0/10 OBJECTIVE Procedure/Treatment: Gait training: for 38 minutes Today's Treatment: 09/09/22 Prosthetic Gait training without Assistive Device: 100' with 1 turn and no assistive device x2 reps. 110' with obstacle avoidance and 1 LOB with Min Miah correct. Then performed 75' x2 and 100' x1 with CGA. Ambulated All ambulation was through hallway and gym areas with multiple distractions and crowds. Side Stepping x20' without rest and without assistive device. Intermittent UE assist on wall. Modalities: None Education Performed: Continue with walking in hallway without assistive device. ASSESSMENT Mr. Hurley is gaining consistency and confidence with ambulating without assistive device in open areas. Worked on avoiding obstacles in gym area today as well as stopping/starting activities. Noted that patient demonstrates decreased weight shift and knee swing when surrounded by distractions including people, noises, and obstacles. PLAN Mr. Hurley would benefit from outdoor ambulation with LBQC to work on uneven surfaces and parking lot distractions. Working towards ambulating at home without assistive device independently. Patient needs reassessment next visit. 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
--- OUTSIDE RECORDS SUMMARY | 2024-02-23 18:59 | XMS_ITS | Encounter Summary ---
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) Impaired mobility Ajay Goddard MD [address] [facility] [address] [place] [address] Phone: tel: fax: [facility] Outpatient Therapy [address] [place] [address] Phone: tel: fax: Referral ID Status Reason Start Date Expiration Date V isits Requested Visits Authorized [id number] Closed Specialty Services Required 03/06/2022 10/30/2022 1 44 Encounter Details Date Type Department Care Team (Latest Contact Info) Description 08/19/2022 8:47 AM EDT - 08/19/2022 11:59 PM EDT Hospital Encounter [facility] Outpatient Therapy [address] [place] [address] Madelyn Ovalles Acquired absence of [...] * Progress Notes - Madelyn Ovalles - 08/19/2022 9:45 AM EDT [facility] Orthopedic Rehabilitation Daily Note Name: Buzz Hurley : 1965 Diagnosis: Left transfemoral amputation Time In: 9:23 Time Out: 10:16 SUBJECTIVE I brought my cane today. I was able to get over the gravel; I was just slow and careful. He states that the van dropped him off right at the door, so that helped. He also reports that he walked up/down the steps into the van instead of riding the lift. Pain (scale of 0-10): 0/10 OBJECTIVE Procedure/Treatment: Gait training with and without zeroG to improve stance phase on prosthesis and step length for 53 minutes Today's Treatment: 08/19/22 Prosthetic Gait Training with ZeroG: with 10% Body Weight Support and 4 fall control, XL harness with thigh straps. Ambulation without assistive device: cues for weight shift and Right step length 180'x1 10% bodyweight support with good mechanics approximately 95% of time, 90' x2 10% bodyweight support, head turns, looking up/down. 180' x1 10% bodyweight support with head turns and distractions with people crossing path and carrying on conversation. 90' x2 10% bodyweight support with Trip activation forward and retro at Level 1. Prosthetic Gait Training: Patient ambulated 110' with LBQC with manual perturbations anterior/lateral/posterior at shoulder and hip with patient to self-correct. then 62' with no AD. Good step lengthapproximately 75% of time. Improved step continuity. Patient had 0 LOB's during second ambulation. Modalities: None Education Performed: ZeroG use and safety ASSESSMENT Patient demos great ability to maintain balance with both manual and mechanical perturbations. He with and without LBQC. He did well using LBQC for getting from house to transportation to inside the clinic. He had no LOB's with distractions or perturbations today. PLAN Mr. Hurley would benefit from outdoor ambulation with LBQC to work on uneven surfaces and parking lot distractions. 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
--- OUTSIDE RECORDS SUMMARY | 2024-02-23 18:59 | XMS_ITS | Encounter Summary ---
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 [address] [place] [address] Phone: tel: fax: [facility] Outpatient Therapy [address] [place] [address] Phone: tel: fax: Referral ID Status Reason Start Date Expiration Date V isits Requested Visits Authorized [id number] Closed Specialty Services Required 03/06/2022 10/30/2022 1 44 Encounter Details Date Type Department Care Team (Latest Contact Info) Description 09/04/2022 8:47 AM EDT - 09/04/2022 11:59 PM EDT Hospital Encounter [facility] Outpatient Therapy [address] [place] [address] Madelyn Ovalles Acquired absence of [...] * Progress Notes - Madelyn Ovalles - 09/04/2022 9:45 AM EDT [facility] Orthopedic Rehabilitation Daily Note Name: Buzz Hurley : 1965 Diagnosis: Left transfemoral amputation Time In: 9:31 Time Out: 10:20 SUBJECTIVE Patient reports that he is doing well today. Not too tired. Pain (scale of 0-10): 0/10 OBJECTIVE Procedure/Treatment: Therapeutic Activities: Refer to exercise flowsheet. 5 minutes. Gait training: for 44 minutes Today's Treatment: 09/04/22 Prosthetic Gait training without Assistive Device: 124', 104', 78' 108'. Cues with fatigue to maintain good arm swing and stance phase. I110' with obstacle avoidance. All ambulation was through hallway and gym areas with multiple distractions and crowds. Side Stepping x8'x2 without rest and without assistive device. Intermittent UE assist on wall. Therapeutic Activity: Reaching for Cone on Floor with x5 reps. No loss of balance and no assistive device today. Modalities: None Education Performed: Continue with walking in hallway without assistive device. Discussed POC and possibly continuing with therapy for 5 more weeks, re- assessment next week. ASSESSMENT Mr. Hurley is gaining consistency and confidence with ambulating without assistive device in open areas. Worked on avoiding obstacles in gym area today as well as stopping/starting activities. PLAN Mr. Hurley would benefit from outdoor ambulation with LBQC to work on uneven surfaces and parking lot distractions. Working towards ambulating at home without assistive device independently. Patient needs reassessment next week. 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
--- OUTSIDE RECORDS SUMMARY | 2024-02-23 18:59 | XMS_ITS | Encounter Summary ---
Author Organization [facility] Address [address] [place] [address] Care Team Providers Care Pump Stitcher Name Role Phone Terence Ring Primary Care Provider [phone] Encounter Details Date Type Department Care Team (Latest Contact Info) Description 06/12/2022 Travel Social History Tobacco Use Types Packs/Day [...] Description 03/07/2024 1:40 PM EST Office Visit [facility] [place] [address], [address] [place] [address] Naeem Blunt MD [address] [place] [address] documented as of this encounter Visit Diagnoses Not on filedocumented in this encounter Additional Health Concerns Infection Onset Date Last Indicated Resolved Time MRSA Comment:Positive blood culture 03/03/2019 01/30/2024 documented as of this encounter Care Teams Pump Stitcher Relationship Specialty Start Date End Date Terence Ring [facility] [place] [address] PCP - General 08/09/20 03/23/23 documented as of this encounter
--- OUTSIDE RECORDS SUMMARY | 2024-02-23 18:59 | XMS_ITS | Encounter Summary ---
Author Organization [facility] Address [address] [place] [address] Care Team Providers Care Laborer Bituminous Paving Name Role Phone Terence Ring Primary Care Provider [phone] Encounter Details Date Type Department Care Team (Latest Contact Info) Description 08/21/2022 Travel Social History Tobacco Use Types Packs/Day [...] Description 03/07/2024 1:40 PM EST Office Visit [facility] [place] [address] [facility] [address], [address] [place] [address] Naeem Blunt MD [address] [place] [address] documented as of this encounter Visit Diagnoses Not on filedocumented in this encounter Additional Health Concerns Infection Onset Date Last Indicated Resolved Time MRSA Comment:Positive blood culture 03/03/2019 01/30/2024 documented as of this encounter Care Teams Laborer Bituminous Paving Relationship Specialty Start Date End Date Terence Ring [facility] [place] [address] PCP - General 08/09/20 03/23/23 documented as of this encounter
--- OUTSIDE RECORDS SUMMARY | 2024-02-23 18:59 | XMS_ITS | Encounter Summary ---
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) Impaired mobility Ajay Goddard MD [address] [facility] [address] [place] [address] Phone: tel: fax: [facility] [address] [place] [address] Phone: tel: fax: Referral ID Status Reason Start Date Expiration Date V isits Requested Visits Authorized [id number] Closed Specialty Services Required 03/06/2022 10/30/2022 1 44 Encounter Details Date Type Department Care Team (Latest Contact Info) Description 07/15/2022 9:29 AM EDT - 07/15/2022 11:59 PM EDT Hospital Encounter [facility] [address] [place] [address] Madelyn Ovalles Acquired absence of [...] suspected to have Coronavirus/COVID-19? No / Unsure 07/15/2022 9:28 AM EDT documented as of this encounter Medications at Time of Discharge insulin detemir (Levemir) 100 UNIT/ML injection pen Inject 7-8 Units under the skin every night. 06/12/2020 02/04/2024 documented as of this encounter Miscellaneous Notes * Progress Notes - Madelyn Ovalles - 07/15/2022 9:45 AM EDT [facility] Orthopedic Rehabilitation Daily Note Name: Buzz Hurley : 1965 Diagnosis: L transfemoral amputation Time In: 9:45 Time Out: 10:27 SUBJECTIVE Patient reports that he's pretty good today. Pain (scale of 0-10): 0/10 OBJECTIVE Procedure/Treatment: Gait training with and without zeroG to improve stance phase on prosthesis and step length for 42 minutes Today's Treatment: 07/15/22 Prosthetic Gait Training with ZeroG: with 15% Body Weight Support and 4 fall control, XL harness with thigh straps. Ambulation without assistive device: cues for weight shift and Right step length. 180'x1 - with SC 90'x2 15% bodyweight support with good mechanics, 90'x1 10% bodyweight support. Prosthetic Gait Training: Patient ambulated 75' with no assistive device x7 reps (cane only during turns). Good step length approximately 65% of time. Improves with cues to march left LE for more controlled step length. Therapeutic Activity with ZeroG: (not performed) with [...] ambulation with Single Tip Cane. ASSESSMENT Patient ambulated without assistive device and without zeroG today with approximately 65% successful mechanics. He demos increased extraneous arm movements to maintain balance, but had no episodes ofloss of balance or knee buckling. Needed occasional cues to stop when becoming uncontrolled and regain rhythm and coordination PLAN Mr. Hurley would benefit from continued gait training with and without Zero-G. Initiate obstacle avoidance and distractions as tolerated. 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
--- OUTSIDE RECORDS SUMMARY | 2024-02-23 18:59 | XMS_ITS | Encounter Summary ---
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) Impaired mobility Ajay Goddard MD [address] [facility] [address] [place] [address] Phone: tel: fax: [facility] [address] [place] [address] Phone: tel: fax: Referral ID Status Reason Start Date Expiration Date V isits Requested Visits Authorized [id number] Closed Specialty Services Required 03/06/2022 10/30/2022 1 44 Encounter Details Date Type Department Care Team (Latest Contact Info) Description 08/21/2022 9:00 AM EDT - 08/21/2022 11:59 PM EDT Hospital Encounter [facility] [address] [place] [address] Madelyn Ovalles Acquired absence of [...] * Progress Notes - Madelyn Ovalles - 08/21/2022 9:45 AM EDT [facility] Orthopedic Rehabilitation Daily Note Name: Buzz Hurley : 1965 Diagnosis: Left transfemoral amputation Time In: 9:45 Time Out: 10:31 SUBJECTIVE Patient brought his cane again today. I had to walk farther because they wouldn't pull up to the door. He also reports that he is doing better with the gravel. I'm just slow careful. Patient reports that he's going to [facility] this weekend with a friend. Pain (scale of 0-10): 0/10 OBJECTIVE Procedure/Treatment: Gait training with and without zeroG to improve stance phase on prosthesis and step length for 46 minutes Today's Treatment: 08/21/22 Prosthetic Gait Training with ZeroG: with 10% Body Weight Support and 4 fall control, XL harness with thigh straps. Ambulation without assistive device: cues for weight shift and Right step length 105', 210'x2 including 2 turns 10% bodyweight support with good mechanics approximately 95% of time, with intermittent head turns and looking up. 180' x2 10% bodyweight support with Trip activation forward and retro at Level 1-2. 3 LOB's when fatigued. Modalities: None Education Performed: ZeroG use and safety ASSESSMENT Patient very fatigued after today's treatment session. He is ambulating with cane for community distances including in to therapy and plans to use it to go out to eat with his friend this weekend. PLAN Mr. Hurley would benefit from outdoor ambulation with LBQC to work on uneven surfaces and parking lot distractions. 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
--- OUTSIDE RECORDS SUMMARY | 2024-02-23 18:59 | XMS_ITS | Encounter Summary ---
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) Impaired mobility Ajay Goddard MD [address] [facility] [address] [place] [address] Phone: tel: fax: [facility] [address] [place] [address] Phone: tel: fax: Referral ID Status Reason Start Date Expiration Date V isits Requested Visits Authorized [id number] Closed Specialty Services Required 03/06/2022 10/30/2022 1 44 Encounter Details Date Type Department Care Team (Latest Contact Info) Description 08/14/2022 8:52 AM EDT - 08/14/2022 11:59 PM EDT Hospital Encounter [facility] Therapy [address] [place] [address] Madelyn Ovalles Acquired absence of [...] * Progress Notes - Madelyn Ovalles - 08/14/2022 9:45 AM EDT [facility] Orthopedic Rehabilitation Daily Note Name: Buzz Hurley : 1965 Diagnosis: L transfemoral amputation Time In: 9:55 Time Out: 10:28 SUBJECTIVE I'm starting to think that I'm never going to get away from the cane. Pain (scale of 0-10): 0/10 OBJECTIVE Procedure/Treatment: Therapeutic Activities: Refer to exercise flowsheet. 8 minutes. Gait training with and without zeroG to improve stance phase on prosthesis and step length for 48 minutes Today's Treatment: 08/14/22 Prosthetic Gait Training with ZeroG: with 10% Body Weight Support and 4 fall control, XL harness with thigh straps. Ambulation without assistive device: cues for weight shift and Right step length 90'x3 10% bodyweight support with good mechanics approximately 95% of time, 90' x3 with cone avoidance (not placed directly in walking path, but offset enough to be distraction) and with 4 foam to step over x2. Improved maintaining good mechanics. Improved mechanics on second lap and performed approximately 80%. Difficulty clearing foot with stepping over object with no LOBs. Circumduction to clear foot 8 of 12 times. Not performed: 90' x2 with stability ball rolling across walking path. Prosthetic Gait Training: Patient ambulated 103' then 62' with no AD. Good step length approximately 75% of time. Improved step continuity. Patient had 0 LOB's during second ambulation. Therapeutic Activity with ZeroG: with 10% Body Weight Support and 14 fall control. Reaching to cup on the floor on 2 foam x3 with Single Tip Cane. Attempted x3 without assistive device, but unable to complete. Modalities: None Education Performed: ZeroG use and safety Initiating home ambulation with Single Tip Cane. ASSESSMENT Patient tolerated Zero-G gait training with less anxiety and no LOB. Improved obstacle avoidance. Progressing well with ambulating without assistive device, increasing time and distance. PLAN Mr. Hurley would benefit from beginning to transition working on outdoor ambulation with quad cane. He would also benefit from working on functional ambulation at household distance without assistive device while carrying objects. 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
--- OUTSIDE RECORDS SUMMARY | 2024-02-23 18:59 | XMS_ITS | Encounter Summary ---
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) Impaired mobility Ajay Goddard MD [address] [facility] [address] [place] [address] Phone: tel: fax: [facility] [address] [place] [address] Phone: tel: fax: Referral ID Status Reason Start Date Expiration Date V isits Requested Visits Authorized [id number] Closed Specialty Services Required 03/06/2022 10/30/2022 1 44 Encounter Details Date Type Department Care Team (Latest Contact Info) Description 07/10/2022 8:47 AM EDT - 07/10/2022 11:59 PM EDT Hospital Encounter [facility] [address] [place] [address] Madelyn Ovalles Acquired absence of [...] suspected to have Coronavirus/COVID-19? No / Unsure 07/10/2022 8:47 AM EDT documented as of this encounter Medications at Time of Discharge insulin detemir (Levemir) 100 UNIT/ML injection pen Inject 7-8 Units under the skin every night. 06/12/2020 02/04/2024 documented as of this encounter Miscellaneous Notes * Progress Notes - Madelyn Ovalles - 07/10/2022 9:45 AM EDT [facility] Orthopedic Rehabilitation PT 30 Day Progress Report Time in: 932 Time out: 10:26 Date: 07/10/22 Name: Buzz Saul Xavi : 1965 Past 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: Diagnosis Date [...] OF STENT N/A Cath Stent Placement from [employer] CHOLECYSTECTOMY N/A Cholecystectomy from [employer] SUBJECTIVE Patient reports that his sugar has been good. I've noticed if I eat something it goes way up. So Ijust don't eat anything. He also states that his blood pressure has been 180/80 mmHg, the bottom number is pretty good, but the top number is a little high. Referring Physician: Ajay Goddard MD/Erik Hurley MD Onset/Surgery Date: 03/08/2019 Pain (scale of 0-10): Location: residual limb Current Pain: 0/10 Highest Pain: 0/10 Lowest Pain: 0/10 Restriction/Precautions: none Patient Goals: To be able to walk without a cane. OBJECTIVE Gait: Community ambulation with Rolling Walker and Home ambulation with LBQC With LBQC: Patient khushi improved weight shift and dilshad with 3 point gait. He is improving with step length on right with improved consistency with swing phase on left. With RW: Patient demos symmetrical stance time, however pt has significant forward flexion at hips and poor hip extension activation. Cues given to keep walker closer to improved glute recruitment, however patient corrects x2-3 steps then returns to previous hip flexed gait. AROM (In Degrees): Initial 07/10/22 Left Right Left Right Hip Flexion WNL WNL WNL WNL Hip Extension 0 deg WNL 12 10 Hip Abduction WNL WNL WNL WNL Strength/Motor Control: Left Right Left Right Hip Flexion 5/5* 5/5 5/5 5/5 Hip Extension 3-/5* 4/5 5/5 4+/5 Hip Abduction 5/5* 4+/5 5/5 5/5 Knee Flexion N/A 4+/5 N/A 5/5 Knee Extension N/A 5/5 N/A 5/5 Ankle DF N/A 4/5 N/A 5/5 Ankle Ev N/A 5/5 N/A 5/5 Ankle Inv N/A 4+/5 N/A 5/5 *Left with prosthesis Outcome Measure/Functional Tests: Initial 04/22/22 05/13/22 06/10/22 07/10/22 AMPRO: 31/47 32/47 30/47 33/47 35/47 K1 (-) K2 (-) K3 (-) K4 (-) TUG: Initial: 45.02 with wide-base quad cane. (>19 seconds indicated high risk of falls) 04/22/22: 37.8 sec with wide based quad cane. 05/13/22: 43.2 sec with wide based quad cane. 06/10/22: 50.2 sec with wide based quad cane. 07/10/22: 39.1 sec with Wide based quad cane. 6MWT with LBQC: Initial: not assessed 04/22/22: 235' with 1 seated rest break (at 161'/4 minutes, lasting 45 seconds) with Rolling Walker 05/13/22: 186' with 1 seated rest break (at 116'/4.5 minutes, lasting 45 seconds) with LBQC 06/10/22: 144' without rest (stopped at 5' to rest and did not resume) with LBQC 07/10/22: 240' with no rest break with LBQC Procedure/Treatment: PT Assessment Therapeutic Exercise: ROM and MMT Assessment: 13 Therapeutic Activity: Functional Mobility and Balance Testin minutes. Modalities: None Education Performed: Plan of Care - Progress made and Goals Reviewed ASSESSMENT Buzz Hurley is a 56 y.o. male who presents with a primary complaint of difficulty ambulating without assistive device. 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 Buzz is making significant functional mobility improvement with a 2 point increase on AMPRO and an 11.1 seconds improvement on TUG. He demonstrates improved distance with 6MWT with LBQC and did not need a rest break. Patient is progressing well with Zero-G for improved gait mechanics, balance, and endurance which isallowing him to be more active at home and more participatory with therapy. Mr. Hurley is making slow gains and would benefit from continuing skilled therapy services for 12 more weeks to focus on gait, balance, and functional mobility training. Primary Language: Armenian Needs communication device: No Does the patient understand basic information? Yes, able to self manage. Barriers to learning: None Cultural/Faith beliefs: None that will affect treatment Rehab Potential/Prognosis: Good Personal Factors/Comorbidities Affecting Care: Pre-Injury Condition , Prior history of condition, and Fear avoidance behavior Complexity: Moderate Complexity using Standard PT Assessment (88768) PLAN Patient to be seen 2 times [...] care, sock management, and wearing schedule. - MET Patient will demonstrate >/= 3+ gluteus drew strength for improved prosthetic control with ambulation. -MET Patient will ambulate 125' with LBQC assistive device for independent home ambulation. - MET Patient will be able to stand x 3 minutes with 1 Upper Extremity assist for ADL's. MET Prison Goals (12 weeks): Patient will demonstrate > 37/47 on the AMPRO to return to ambulation in the park. - Progressing(35/47) Patient will demonstrate TUG in </=19 seconds with LBQC for significantly improved safety with household ambulation. (< 19.0 sec for decreased risk of falls in amputee population) - Progressing(39.1 sec with LBQC) Patient will demonstrate >/= 4+/5 lower extremity strength for improved independence with IADLs.-MET Patient will report walking around home without assistive device and modified independence. (NEW GOAL) Patient will ambulate short community distances with LBQC for improved activity participation with family and friends. THE PROVIDER, I AM IN AGREEMENT WITH THE STATED THERAPY PLAN OF CARE. If the patient does not return for 30 days, they will be considered discharged at that time. Patient agrees with/understands the plan of care. Patient advised to call the clinic with any questions or concerns. 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
--- OUTSIDE RECORDS SUMMARY | 2024-02-23 18:59 | XMS_ITS | Encounter Summary ---
Author Organization [facility] Address [address] [place] [address] Care Team Providers Care Welfare Administrator Name Role Phone Terence Ring Primary Care Provider [phone] Encounter Details Date Type Department Care Team ([facility] Contact Info) Description 07/10/2022 Plan of Care Documentation [facility] Therapy [address] [place] [address] Social History Tobacco Use Types Packs/Day Years [...] Encounters Date Type Department Care Team (Late Contact Info) Description 03/07/2024 1:40 PM EST Office Visit [facility] [place] [address] [facility], [address] [place] [address] Naeem Blunt MD [address] [place] [address] documented as of this encounter Visit Diagnoses Not on filedocumented in this encounter Additional Health Concerns Infection Onset Date Last Indicated Resolved Time MRSA Comment:Positive blood culture 03/03/2019 01/30/2024 documented as of this encounter Care Teams Welfare Administrator Relationship Specialty Start Date End Date Terence Ring [facility] [place] [id number] PCP - General 08/09/20 03/23/23 documented as of this encounter
--- OUTSIDE RECORDS SUMMARY | 2024-02-23 18:59 | XMS_ITS | Encounter Summary ---
Author Organization [facility] Address [address] [place] [address] Care Team Providers Care Media Clerk Name Role Phone Terence Ring Primary Care Provider [phone] Encounter Details Date Type Department Care Team (Latest Contact Info) Description 07/15/2022 Travel Social History Tobacco Use Types Packs/Day [...] Description 03/07/2024 1:40 PM EST Office Visit [facility] [place] [address] [facility] [address] [facility], [address] [place] [address] Naeem Blunt MD [address] [place] [address] documented as of this encounter Visit Diagnoses Not on filedocumented in this encounter Additional Health Concerns Infection Onset Date Last Indicated Resolved Time MRSA Comment:Positive blood culture 03/03/2019 01/30/2024 documented as of this encounter Care Teams Media Clerk Relationship Specialty Start Date End Date Terence Ring [facility] [place] [address] PCP - General 08/09/20 03/23/23 documented as of this encounter
--- OUTSIDE RECORDS SUMMARY | 2024-02-23 18:59 | XMS_ITS | Encounter Summary ---
Author Organization [facility] Address [address] [place] [address] Care Team Providers Care Drawing Supervisor Name Role Phone Terence Ring Primary Care Provider [phone] Encounter Details Date Type Department Care Team (Latest Contact Info) Description 06/17/2022 Travel Social History Tobacco Use Types Packs/Day [...] suspected to have Coronavirus/COVID-19? No / Unsure 06/17/2022 8:41 AM EDT documented as of this encounter Plan of Treatment Upcoming Encounters Date Type Department Care Team (Late st Contact Info) Description 03/07/2024 1:40 PM EST Office Visit [facility] [place] [address] [facility], [address] [place] [address] Naeem Blunt MD [address] [place] [address] documented as of this encounter Visit Diagnoses Not on filedocumented in this encounter Additional Health Concerns Infection Onset Date Last Indicated Resolved Time MRSA Comment:Positive blood culture 03/03/2019 01/30/2024 documented as of this encounter Care Teams Drawing Supervisor Relationship Specialty Start Date End Date Terence Ring [facility] [place] [address] PCP - General 08/09/20 03/23/23 documented as of this encounter
--- OUTSIDE RECORDS SUMMARY | 2024-02-23 18:59 | XMS_ITS | Encounter Summary ---
Author Organization [facility] Address [address] [place] [address] Care Team Providers Care Medical Hospital Sales Name Role Phone Terence Ring Primary Care Provider Encounter Details Date Type Department Care Team (Late Contact Info) Description 07/24/2022 Telephone [facility] Outpatient Therapy [address] [place] [address] Silvio Pryor Social History Tobacco Use Types Packs/Day Years [...] AM EDT documented as of this encounter Miscellaneous Notes * Telephone Encounter - Silvio Pryor - 07/24/2022 10:08 AM EDT Patient was no show for therapy this date. Called and left message on voicemail with date/time of next appointment. documented in this encounter Plan of Treatment Upcoming Encounters Date Type Department Care Team (Late Contact Info) Description 03/07/2024 1:40 PM EST Office Visit [facility] [place] [address], [address] [place] [address] Naeem Blunt MD [address] [place] [address] documented as of this encounter Visit Diagnoses Not on filedocumented in this encounter Additional Health Concerns Infection Onset Date Last Indicated Resolved Time MRSA Comment:Positive blood culture 03/03/2019 01/30/2024 documented as of this encounter Care Teams Medical Hospital Sales Relationship Specialty Start Date End Date Terence Ring [address] [place] [address] PCP - General 08/09/20 03/23/23 documented as of this encounter
--- OUTSIDE RECORDS SUMMARY | 2024-02-23 18:59 | XMS_ITS | Encounter Summary ---
Author Organization [facility] Address [address] [place] [address] Care Team Providers Care Hot Roll Laminator Name Role Phone Terence Ring Primary Care Provider [phone] Encounter Details Date Type Department Care Team (Latest Contact Info) Description 08/12/2022 Travel Social History Tobacco Use Types Packs/Day [...] Description 03/07/2024 1:40 PM EST Office Visit [facility] [place] [address], [address] [place] [address] Naeem Blunt MD [address] [place] [address] documented as of this encounter Visit Diagnoses Not on filedocumented in this encounter Additional Health Concerns Infection Onset Date Last Indicated Resolved Time MRSA Comment:Positive blood culture 03/03/2019 01/30/2024 documented as of this encounter Care Teams Hot Roll Laminator Relationship Specialty Start Date End Date Terence Ring [facility] [place] [address] PCP - General 08/09/20 03/23/23 documented as of this encounter
--- OUTSIDE RECORDS SUMMARY | 2024-02-23 18:59 | XMS_ITS | Encounter Summary ---
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) Impaired mobility Ajay Goddard MD [address] [facility] [address] [place] [address] Phone: tel: fax: [facility] Outpatient Therapy [address] [place] [address] Phone: tel: fax: Referral ID Status Reason Start Date Expiration Date V isits Requested Visits Authorized [id number] Closed Specialty Services Required 03/06/2022 10/30/2022 1 44 Encounter Details Date Type Department Care Team (Latest Contact Info) Description 07/17/2022 9:29 AM EDT - 07/17/2022 11:59 PM EDT Hospital Encounter [facility] Outpatient Therapy [address] [place] [address] Madelyn Ovalles Acquired absence of [...] * Progress Notes - Madelyn Ovalles - 07/17/2022 9:45 AM EDT [facility] Orthopedic Rehabilitation Daily Note Name: Buzz Hurley : 1965 Diagnosis: L transfemoral amputation Time In: 9:45 Time Out: 10:30 SUBJECTIVE Patient reports that he's pretty good today. Pain (scale of 0-10): 0/10 OBJECTIVE Procedure/Treatment: Gait training with and without zeroG to improve stance phase on prosthesis and step length for 45 minutes Today's Treatment: 07/17/22 Prosthetic Gait Training with ZeroG: with 10% Body Weight Support and 4 fall control, XL harness with thigh straps. Ambulation without assistive device: cues for weight shift and Right step length 90'x2 10% bodyweight support with good mechanics approximately 60% of time, 90'x2 10% bodyweight support with empty cup in each hand. Good mechanics 75% then 85% of time. 90' x2 with cone avoidance (not placed directly in walking path, but offset enough to be distraction) difficulty maintaining good mechanics, 2 LOBs first lap and 1 LOB second lap with Zero-G assist. Improved mechanics on second lap and performed approximately 30% of time Prosthetic Gait Training: Patient ambulated 30' then 35' with no assistive device. Good step lengthapproximately 65% of time. Improves with cues to may left LE for more controlled step length. [...] training with obstacles and carrying things with significant anxiety.Decreased difficulty of cone obstacles from being directly in front and having to walk around, to being just inside of ambulation path so less avoidance needed. Progressing well with ambulating without assistive device.Recommended that patient get a Single Tip Cane to walk with at home for improvedconfidence with less restrictive assistive device. PLAN Mr. Hurley would benefit from continued gait training with and without Zero-G. Initiate obstacle avoidance and distractions as tolerated. 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
--- OUTSIDE RECORDS SUMMARY | 2024-02-23 18:59 | XMS_ITS | Encounter Summary ---
Author Organization [facility] Address [address] [place] [address] Care Team Providers Care Medical Receptionist Assistant Name Role Phone Terence Ring Primary Care Provider [phone] Encounter Details Date Type Department Care Team (Latest Contact Info) Description 06/05/2022 Travel Social History Tobacco Use Types Packs/Day [...] suspected to have Coronavirus/COVID-19? No / Unsure 06/05/2022 9:09 AM EST documented as of this encounter Plan of Treatment Upcoming Encounters Date Type Department Care Team (Late st Contact Info) Description 03/07/2024 1:40 PM EST Office Visit [facility] [place] [address], [address] [place] [address] Naeem Blunt MD [address] [place] [address] documented as of this encounter Visit Diagnoses Not on filedocumented in this encounter Additional Health Concerns Infection Onset Date Last Indicated Resolved Time MRSA Comment:Positive blood culture 03/03/2019 01/30/2024 documented as of this encounter Care Teams Medical Receptionist Assistant Relationship Specialty Start Date End Date Terence Ring [facility] [place] [address] PCP - General 08/09/20 03/23/23 documented as of this encounter
--- OUTSIDE RECORDS SUMMARY | 2024-02-23 18:59 | XMS_ITS | Encounter Summary ---
Author Organization [facility] Address [address] [place] [address] Care Team Providers Care Cuff Knitter Name Role Phone Terence Ring Primary Care Provider [phone] Encounter Details Date Type Department Care Team (Latest Contact Info) Description 06/24/2022 Travel Social History Tobacco Use Types Packs/Day [...] suspected to have Coronavirus/COVID-19? No / Unsure 06/24/2022 8:48 AM EDT documented as of this encounter Plan of Treatment Upcoming Encounters Date Type Department Care Team (Late st Contact Info) Description 03/07/2024 1:40 PM EST Office Visit [facility] [place] [address], [address] [place] [address] Naeem Blunt MD [address] [place] [address] documented as of this encounter Visit Diagnoses Not on filedocumented in this encounter Additional Health Concerns Infection Onset Date Last Indicated Resolved Time MRSA Comment:Positive blood culture 03/03/2019 01/30/2024 documented as of this encounter Care Teams Cuff Knitter Relationship Specialty Start Date End Date Terence Ring [facility] [place] [address] PCP - General 08/09/20 03/23/23 documented as of this encounter
--- OUTSIDE RECORDS SUMMARY | 2024-02-23 18:59 | XMS_ITS | Encounter Summary ---
Author Organization [facility] Address [address] [place] [address] Care Team Providers Care Ceramic Sprayer Name Role Phone Terence Ring Primary Care Provider [phone] Encounter Details Date Type Department Care Team (Latest Contact Info) Description 07/31/2022 Travel Social History Tobacco Use Types Packs/Day [...] Description 03/07/2024 1:40 PM EST Office Visit [facility] [place] [address] [facility] [facility] [address] [facility], [address] [place] [address] Naeem Blunt MD [address] [place] [address] documented as of this encounter Visit Diagnoses Not on filedocumented in this encounter Additional Health Concerns Infection Onset Date Last Indicated Resolved Time MRSA Comment:Positive blood culture 03/03/2019 01/30/2024 documented as of this encounter Care Teams Ceramic Sprayer Relationship Specialty Start Date End Date Terence Ring [facility] [place] [address] PCP - General 08/09/20 03/23/23 documented as of this encounter
--- OUTSIDE RECORDS SUMMARY | 2024-02-23 18:59 | XMS_ITS | Encounter Summary ---
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) Impaired mobility Ajay Goddard MD [address] [facility] [address] [place] [address] Phone: tel: fax: [facility] Outpatient Therapy [address] [place] [address] Phone: tel: fax: Referral ID Status Reason Start Date Expiration Date V isits Requested Visits Authorized [id number] Closed Specialty Services Required 03/06/2022 10/30/2022 1 44 Encounter Details Date Type Department Care Team (Latest Contact Info) Description 09/11/2022 9:13 AM EDT - 09/11/2022 11:59 PM EDT Hospital Encounter [facility] Outpatient Therapy [address] [place] [address] Madelyn Ovalles Acquired absence of [...] * Progress Notes - Madelyn Ovalles - 09/11/2022 9:45 AM EDT [facility] Orthopedic Rehabilitation Daily Note Name: Buzz Hurley : 1965 Diagnosis: Left transfemoral amputation Patient arrived physical therapy not feeling well. Patient reports that he feels dizzy, lightheaded, and not well at all. He states that his blood sugar was 120 this morning, he took his insulin, but did not eat. He does not have his glucometer with him. BP 110/68 mmHg sitting Left UE. Patient has waxy appearance. No pallor or diaphoresis noted. Patient was given 2 packages of crackers and 2 peanut butter packets and 1 apple juice box, howevercontinues to feel unwell. Patient requested more crackers, peanut butter, and juice. And was brought another serving per above along with 2 glasses of water. Held therapy today. Recommended that patient go to ER via ambulance due to rides transportation andtypically takes 1-2 hours for pick-up. Patient states that he wants to sit and wait and see his primary doctor later today. EMS called and assessed the patient. BP 130/76 mmHg, Blood Glucose 105 after snacks. Patient declined to go to the hospital. States he will wait for his government ride and gohome and rest, then go to his MD this afternoon. His ex- is there and will call 911 or take himto the hospital if he needs it. 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
--- OUTSIDE RECORDS SUMMARY | 2024-02-23 18:59 | XMS_ITS | Encounter Summary ---
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 [address] [place] [address] Phone: tel: fax: [facility] Outpatient Therapy [address] [place] [address] Phone: tel: fax: Referral ID Status Reason Start Date Expiration Date V isits Requested Visits Authorized [id number] Closed Specialty Services Required 03/06/2022 10/30/2022 1 44 Encounter Details Date Type Department Care Team (Latest Contact Info) Description 09/18/2022 8:47 AM EDT - 09/18/2022 11:59 PM EDT Hospital Encounter [facility] Outpatient Therapy [address] [place] [address] Madelyn Ovalles Acquired absence of [...] * Progress Notes - Madelyn Ovalles - 09/18/2022 9:45 AM EDT [facility] Orthopedic Rehabilitation Daily Note Name: Buzz Hurley : 1965 Diagnosis: Left transfemoral amputation Time In: 9:26 Time Out: 10:10 SUBJECTIVE Patient reports that he Is doing well today. His blood pressure and blood sugars were good this morning. Pain (scale of 0-10): 0/10 OBJECTIVE Procedure/Treatment: Gait training: for 44 minutes Today's Treatment: 09/18/22 Prosthetic Gait training without Assistive Device: 71', 86', 96', 127' with close supervision. 3 turns and no assistive device. Ambulated 89' without assistive device and Min A with 2 LOB's due to fatigue and difficulty controlling prosthetic step length and swing phase. All ambulation was through hallway and gym areas with multiple distractions and crowds. All ambulation performed in center of hallway with increased anxiety without taylor being nearby. Side Stepping 2x20' (each direction) without assistive device. Intermittent UE assist on wall. Modalities: None Education Performed: Continue with walking in hallway without assistive device. ASSESSMENT Buzz is progressing well with ambulation tolerance and endurance. He ambulated in hallway away from wall with only 1 self-corrected LOB until last ambulation and very fatigued and had 2 LOBs and needed Min A to correct. PLAN Continue to progress with endurance and gait training. 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
--- OUTSIDE RECORDS SUMMARY | 2024-02-23 18:59 | XMS_ITS | Encounter Summary ---
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) Impaired mobility Ajay Goddard MD [address] [facility] [address] [place] [address] Phone: tel: fax: [facility] Outpatient Therapy [address] [place] [address] Phone: tel: fax: Referral ID Status Reason Start Date Expiration Date V isits Requested Visits Authorized [id number] Closed Specialty Services Required 03/06/2022 10/30/2022 1 44 Encounter Details Date Type Department Care Team (Latest Contact Info) Description 06/05/2022 9:10 AM EST - 06/05/2022 11:59 PM [facility] Hospital Encounter [facility] Outpatient Therapy [address] [place] [address] Madelyn Ovalles Acquired absence of [...] AM EST documented as of this encounter Medications at Time of Discharge insulin detemir (Levemir) 100 UNIT/ML injection pen Inject 7-8 Units under the skin every night. 06/12/2020 02/04/2024 documented as of this encounter Miscellaneous Notes * Progress Notes - Madelyn Ovalles - 06/05/2022 9:45 AM EST [facility] Orthopedic Rehabilitation Daily Note Name: Buzz Hurley : 1965 Diagnosis: L transfemoral amputation Time In: 9:20 Time Out: 10:15 SUBJECTIVE Patient reports that he's pretty good today. I think there's something wrong with the leg, not my leg. Sometimes I walk just fine and sometimes it turns. He states that he tries to tell the doctor's but they don't listen or the don't understand. Pain (scale of 0-10): 0/10 OBJECTIVE Procedure/Treatment: Gait training with and without zeroG to improve stance phase on prosthesis and step length for 55 minutes Today's Treatment: 06/05/22 Prosthetic Gait Training with ZeroG: with 15% Body Weight Support and 4 fall control, L harness with thigh straps. Ambulation without assistive device: cues for weight shift and Right step length. 128'x2 with 5 turns - 15% body weight support with poor mechanics and multiple episodes of balance loss, unable to correct with cues. Ambulation 128'x2 with 5 turns- 20% bodyweight support and 25% support through turns. Improved mechanics, continues with Left trendelenburg though able to perform correction. Cues to decrease gait speed for improved balance. 60'x2 with 15% body weight support, good gait mechanics, no loss of balance. Prosthetic Gait Training (not performed): Patient ambulated 75' with Single Tip Cane and Contact Guard Assist with wheelchair follow, working on increasing Left weight shift and Right step length, rolling off prosthetic toe to initiate swing phase, and heel strike to initiate prosthetic knee extension. Patient had no LOB's. Therapeutic Activity with ZeroG (not performed): with 25% Body Weight Support and 4 fall control. Sit<>Stand with out assistive device followed by stand pivot transfer to perpendicular chair x5 reps each direction. Occasional anterior loss of balance, though no fall assist recovery necessary. Modalities: None Education Performed: ZeroG use and safety Importance of larger step phase on right and increasing left weight shift. Increased muscle soreness and fatigue after therapy [...] ZeroG today at 15% body weight support. Initiated longer walking distance with turns in zero G track and patient had significantly increased difficulty. Cues necessary for taking slow intentional steps during turns, several losses of balanceoccurred due to placing feet too wide or too close together. Increased WB support through turns andpatient demonstrated improved safety with repetition. Significant fatigue after Zero-G training today, held gait training with [facility] in [facility] due to fatigue. PLAN Mr. Hurley would benefit from continued gait training with ZeroG with focus on consistent Right Steplength, Left stance and swing phases. Continue to work with 10-15% body weight support to improve mechanics without assistive device in straight planes and 20-25% body weight support in turns, then slowly decrease body weight support as tolerated. 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
--- OUTSIDE RECORDS SUMMARY | 2024-02-23 18:59 | XMS_ITS | Encounter Summary ---
Author Organization [facility] Address [address] [place] [address] Care Team Providers Care Dinkey Engine Mechanic Name Role Phone Terence Ring Primary Care Provider [phone] Encounter Details Date Type Department Care Team (Latest Contact Info) Description 06/10/2022 Travel Social History Tobacco Use Types Packs/Day [...] Description 03/07/2024 1:40 PM EST Office Visit [facility] [place] [address] [facility], [address] [place] [address] Naeem Blunt MD [address] [place] [address] documented as of this encounter Visit Diagnoses Not on filedocumented in this encounter Additional Health Concerns Infection Onset Date Last Indicated Resolved Time MRSA Comment:Positive blood culture 03/03/2019 01/30/2024 documented as of this encounter Care Teams Dinkey Engine Mechanic Relationship Specialty Start Date End Date Terence Ring [facility][note 3] [place] [address] PCP - General 08/09/20 03/23/23 documented as of this encounter
--- OUTSIDE RECORDS SUMMARY | 2024-02-23 18:59 | XMS_ITS | Encounter Summary ---
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) Impaired mobility Ajay Goddard MD [address] [facility] [address] [place] [address] Phone: tel: fax: [facility] Outpatient Therapy [address] [place] [address] Phone: tel: fax: Referral ID Status Reason Start Date Expiration Date V isits Requested Visits Authorized [id number] Closed Specialty Services Required 03/06/2022 10/30/2022 1 44 Encounter Details Date Type Department Care Team (Latest Contact Info) Description 07/22/2022 8:50 AM EDT - 07/22/2022 11:59 PM EDT Hospital Encounter [facility] Outpatient Therapy [address] [place] [address] Madelyn Ovalles Acquired absence of [...] * Progress Notes - Madelyn Ovalles - 07/22/2022 9:45 AM EDT [facility] Orthopedic Rehabilitation Daily Note Name: Buzz Hurley : 1965 Diagnosis: L transfemoral amputation Time In: 9:40 Time Out: 10:34 SUBJECTIVE Patient reports that he's pretty good today. Pain (scale of 0-10): 0/10 OBJECTIVE Procedure/Treatment: Gait training with and without zeroG to improve stance phase on prosthesis and step length for 54 minutes Today's Treatment: 07/22/22 Prosthetic Gait Training with ZeroG: with 10% Body Weight Support and 4 fall control, XL harness with thigh straps. Ambulation without assistive device: cues for weight shift and Right step length 90'x3 10% bodyweight support with good mechanics approximately 95% of time, 90' x2 with cone avoidance (not placed directly in walking path, but offset enough to be distraction) improved maintaining good mechanics, 0 LOBs. Improved mechanics on second lap and performed approximately 80%. 90' with person crossing walking path, tossing colored ball, and making conversation. Prosthetic Gait Training: Patient ambulated 30' then 40' then 50' with no assistive device. Good step length approximately 85% of time. Improved step continuity. Therapeutic Activity with ZeroG: (not performed) with [...] avoidance. Progressing well with ambulating without assistive device. Patient is working on getting a STC. PLAN Mr. Hurley would benefit from continued gait training with and without Zero-G. Progress obstacle avoidance and distractions as tolerated. 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
--- OUTSIDE RECORDS SUMMARY | 2024-02-23 18:59 | XMS_ITS | Encounter Summary ---
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) Impaired mobility Ajay Goddard MD [address] [facility] [address] [place] [address] Phone: tel: fax: [facility] Outpatient Therapy [address] [place] [address] Phone: tel: fax: Referral ID Status Reason Start Date Expiration Date V isits Requested Visits Authorized [id number] Closed Specialty Services Required 03/06/2022 10/30/2022 1 44 Encounter Details Date Type Department Care Team (Latest Contact Info) Description 08/05/2022 9:18 AM EDT - 08/05/2022 11:59 PM EDT Hospital Encounter [facility] Outpatient Therapy [address] [place] [address] Madelyn Ovalles Acquired absence of [...] * Progress Notes - Madelyn Ovalles - 08/05/2022 9:45 AM EDT [facility] Orthopedic Rehabilitation Daily Note Name: Buzz Hurley : 1965 Diagnosis: L transfemoral amputation Time In: 9:32 Time Out: 10:28 SUBJECTIVE Patient reports that he's pretty good today. Pain (scale of 0-10): 0/10 OBJECTIVE Procedure/Treatment: Therapeutic Activities: Refer to exercise flowsheet. 8 minutes. Gait training with and without zeroG to improve stance phase on prosthesis and step length for 48 minutes Today's Treatment: 08/05/22 Prosthetic Gait Training with ZeroG: with 10% [...] with no LOBs. Circumduction to clear foot 7 of 12 times. Not performed: 90' x2 with stability ball rolling across walking path. Prosthetic Gait Training: Patient ambulated 50', 75', 50' with no AD. Good step length approximately 85% of time. Improved step continuity. Patient had 1 LOB's during second ambulation due to fatigueand ambulating further from wall which increased anxiety. Therapeutic Activity with ZeroG: with 10% Body Weight Support and 12 fall control. Reaching to cone on the floor and tapping with pen. X5 with STC and x5 without Assistive Device. 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
--- OUTSIDE RECORDS SUMMARY | 2024-02-23 18:59 | XMS_ITS | Encounter Summary ---
Author Organization [facility] Address [address] [place] [address] Care Team Providers Care Counter Waiter Name Role Phone Terence Ring Primary Care Provider [phone] Encounter Details Date Type Department Care Team (Latest Contact Info) Description 08/19/2022 Travel Social History Tobacco Use Types Packs/Day [...] Description 03/07/2024 1:40 PM EST Office Visit [facility] [place] [address] [facility], [address] [place] [address] Naeem Blunt MD [address] [place] [address] documented as of this encounter Visit Diagnoses Not on filedocumented in this encounter Additional Health Concerns Infection Onset Date Last Indicated Resolved Time MRSA Comment:Positive blood culture 03/03/2019 01/30/2024 documented as of this encounter Care Teams Counter Waiter Relationship Specialty Start Date End Date Terence Ring [facility] [place] [address] PCP - General 08/09/20 03/23/23 documented as of this encounter
--- OUTSIDE RECORDS SUMMARY | 2024-02-23 18:59 | XMS_ITS | Encounter Summary ---
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) Impaired mobility Ajay Goddard MD [address] [facility] [address] [place] [address] Phone: tel: fax: [facility] Outpatient Therapy [address] [place] [address] Phone: tel: fax: Referral ID Status Reason Start Date Expiration Date V isits Requested Visits Authorized [id number] Closed Specialty Services Required 03/06/2022 10/30/2022 1 44 Encounter Details Date Type Department Care Team (Latest Contact Info) Description 08/26/2022 8:48 AM EDT - 08/26/2022 11:59 PM EDT Hospital Encounter [facility] Outpatient Therapy [address] [place] [address] Madelyn Ovalles Acquired absence of [...] * Progress Notes - Madelyn Ovalles - 08/26/2022 9:45 AM EDT [facility] Orthopedic Rehabilitation Daily Note Name: Buzz Hurley : 1965 Diagnosis: Left transfemoral amputation Time In: 9:40 Time Out: 10:22 SUBJECTIVE Patient states that he went out to eat this weekend and took his cane. He states that he also went driving through town and it went well. Pain (scale of 0-10): 0/10 OBJECTIVE Procedure/Treatment: Gait training with and without zeroG to improve stance phase on prosthesis and step length for 42 minutes Today's Treatment: 08/26/22 Prosthetic Gait Training with ZeroG: with 10% Body Weight Support and 4 fall control, XL harness with thigh straps. Ambulation without assistive device: cues for weight shift and Right step length 105', 210' including 2 turns Ambulation without assistive device 210' including 2 turns at 5% bodyweight support. Increased trendelenburg towards end due to fatigue. 105' x2 10% bodyweight support obstacle course including two 3 and 1 4 step over obstacle, a 3 step up, and walking on 15' of foam. Walking on foam caused significant loss of balance and fall support initiated. Patient needed Min A to regain balance. Second trial, patient demonstrated instability walking on foam, but did not need fall support. Prosthetic Gait trainin' without assistive device then 81'. Cues with fatigue to maintain good arm swing and stance phase. Increased trendelenburg to right when fatigued. Modalities: None Education Performed: To begin walking in hallway at home without assistive device using wall for loss of balance if needed. ASSESSMENT Mr. Hurley is gaining consistency and confidence with ambulating with [facility] in the community. He states that he has folded up his walker and put it in the closet and is not using it anymore. He reportswalking a few steps at home without cane, but does not yet feel confident. PLAN Mr. Hurley would benefit from outdoor ambulation with [facility] to work on uneven surfaces and parking lot distractions. Working towards ambulating at home without assistive device independently and will DC when he is able to perform consistently. 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
--- OUTSIDE RECORDS SUMMARY | 2024-02-23 18:59 | XMS_ITS | Encounter Summary ---
Author Organization [facility] Address [address] [place] [address] Care Team Providers Care Hot Strip Mill Supervisor Name Role Phone Terence Ring Primary Care Provider [phone] Encounter Details Date Type Department Care Team (Latest Contact Info) Description 07/03/2022 Travel Social History Tobacco Use Types Packs/Day [...] suspected to have Coronavirus/COVID-19? No / Unsure 07/03/2022 9:22 AM EDT documented as of this encounter Plan of Treatment Upcoming Encounters Date Type Department Care Team (Late st Contact Info) Description 03/07/2024 1:40 PM EST Office Visit [facility] [place] [address] [facility], [address] [place] [address] Naeem Blunt MD [address] [place] [address] documented as of this encounter Visit Diagnoses Not on filedocumented in this encounter Additional Health Concerns Infection Onset Date Last Indicated Resolved Time MRSA Comment:Positive blood culture 03/03/2019 01/30/2024 documented as of this encounter Care Teams Hot Strip Mill Supervisor Relationship Specialty Start Date End Date Terence Ring [facility] [place] [address] PCP - General 08/09/20 03/23/23 documented as of this encounter
--- OUTSIDE RECORDS SUMMARY | 2024-02-23 18:59 | XMS_ITS | Encounter Summary ---
Author Organization [facility] Address [address] [place] [address] Care Team Providers Care Aquatic Physiotherapist Name Role Phone Terence Ring Primary Care Provider [phone] Encounter Details Date Type Department Care Team (Latest Contact Info) Description 08/05/2022 Travel Social History Tobacco Use Types Packs/Day [...] Description 03/07/2024 1:40 PM EST Office Visit [facility] [place] [address] [facility] [address], [address] [place] [address] Naeem Blunt MD [address] [place] [address] documented as of this encounter Visit Diagnoses Not on filedocumented in this encounter Additional Health Concerns Infection Onset Date Last Indicated Resolved Time MRSA Comment:Positive blood culture 03/03/2019 01/30/2024 documented as of this encounter Care Teams Aquatic Physiotherapist Relationship Specialty Start Date End Date Terence Ring [facility] [place] [address] PCP - General 08/09/20 03/23/23 documented as of this encounter
--- OUTSIDE RECORDS SUMMARY | 2024-02-23 18:59 | XMS_ITS | Encounter Summary ---
Author Organization [facility] Address [address] [place] [address] Care Team Providers Care Customer Service Cashier Name Role Phone Terence Ring Primary Care Provider [phone] Encounter Details Date Type Department Care Team (Latest Contact Info) Description 09/11/2022 Travel Social History Tobacco Use Types Packs/Day [...] Description 03/07/2024 1:40 PM EST Office Visit [facility] [place] [address] [facility], [address] [place] [address] Naeem Blunt MD [address] [place] [address] documented as of this encounter Visit Diagnoses Not on filedocumented in this encounter Additional Health Concerns Infection Onset Date Last Indicated Resolved Time MRSA Comment:Positive blood culture 03/03/2019 01/30/2024 documented as of this encounter Care Teams Customer Service Cashier Relationship Specialty Start Date End Date Terence Ring [facility] [place] [address] PCP - General 08/09/20 03/23/23 documented as of this encounter
--- OUTSIDE RECORDS SUMMARY | 2024-02-23 18:59 | XMS_ITS | Encounter Summary ---
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) Impaired mobility Ajay Goddard MD [address] [facility] [address] [place] [address] Phone: tel: fax: [facility] Outpatient Therapy [address] [place] [address] Phone: tel: fax: Referral ID Status Reason Start Date Expiration Date V isits Requested Visits Authorized [id number] Closed Specialty Services Required 03/06/2022 10/30/2022 1 44 Encounter Details Date Type Department Care Team (Latest Contact Info) Description 06/17/2022 8:42 AM EDT - 06/17/2022 11:59 PM EDT Hospital Encounter [facility] Outpatient Therapy [address] [place] [address] Madelyn Ovalles Acquired absence of [...] * Progress Notes - Madelyn Ovalles - 06/17/2022 9:30 AM EDT [facility] Orthopedic Rehabilitation Daily Note Name: Buzz Hurley : 1965 Diagnosis: L transfemoral amputation Time In: 9:33 Time Out: 10:17 SUBJECTIVE Patient reports that he's pretty good today. Pain (scale of 0-10): 0/10 OBJECTIVE Procedure/Treatment: Gait training with and without zeroG to improve stance phase on prosthesis and step length for 46 minutes Today's Treatment: 06/17/22 Prosthetic Gait Training with ZeroG: with 20% Body Weight Support and 4 fall control, XL harness with thigh straps. Ambulation without assistive device: cues for weight shift and Right step length. 60'x3 - 20% body weight support with poor mechanics and multiple episodes of balance loss. Last lap, patient demos much improved control after taking smaller steps and decreasing dilshad. Added cone obstacle avoidance x30' to increase multi-tasking and patient was unable to complete with multiple falls and inability to control foot placement. Prosthetic Gait Training (not performed): Patient ambulated 125' with Single Tip Cane and Contact Guard Assist with wheelchair follow, working on increasing Left weight shift and Right step length, rolling off prosthetic toe to initiate swing phase, and heel strike to initiate prosthetic knee extension. Patient had 1 LOB, self-corrected. Therapeutic Activity with ZeroG: (not performed) with [...] patient at a risk for falling. ASSESSMENT Buzz had significant difficulty today with ambulation. Of note, there were multiple distractions in the gym today and any change to environment cause decreased balance and successful ambulation. Trialed cone/obstacle avoidance to increase ability to change task, and patient was unable to successfully avoid a single cone. However, patient had best ambulation with single tip cane including best mechanics and longest distance. Hallway was clear of obstacles and distractions at the time. PLAN Mr. Hurley would benefit from continued gait training with ZeroG with focus on consistent Right Steplength, Left stance and swing phases. Continue to work with 10-15% body weight support to improve mechanics without assistive device in straight planes continue to work on turning and slowly decreasebody weight support as tolerated. Continue to add in obstacle avoidance and distractions as tolerated. 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
--- OUTSIDE RECORDS SUMMARY | 2024-02-23 18:59 | XMS_ITS | Encounter Summary ---
Author Organization [facility] Address [address] [place] [address] Care Team Providers Care Community Arts Centre Manager Name Role Phone Terence Ring Primary Care Provider [phone] Encounter Details Date Type Department Care Team ([facility] Contact Info) Description 08/07/2022 Telephone [facility] Outpatient Therapy [address] [place] [address] Madelyn Ovalles Social History Tobacco [...] Upcoming Encounters Date Type Department Care Team ([facility] Contact Info) Description 03/07/2024 1:40 PM EST Office Visit [facility] [place] [address] [facility] [address], [address] [place] [address] Naeem Blunt MD [address] [place] [address] documented as of this encounter Visit Diagnoses Not on filedocumented in this encounter Additional Health Concerns Infection Onset Date Last Indicated Resolved Time MRSA Comment:Positive blood culture 03/03/2019 01/30/2024 documented as of this encounter Care Teams Community Arts Centre Manager Relationship Specialty Start Date End Date Terence Ring [facility] [place] [address] PCP - General 08/09/20 03/23/23 documented as of this encounter
--- OUTSIDE RECORDS SUMMARY | 2024-02-23 18:59 | XMS_ITS | Encounter Summary ---
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) Impaired mobility Ajay Goddard MD [address] [facility] [address] [place] [address] Phone: tel: fax: [facility] Therapy [address] [place] [address] Phone: tel: fax: Referral ID Status Reason Start Date Expiration Date V isits Requested Visits Authorized [id number] Closed Specialty Services Required 03/06/2022 10/30/2022 1 44 Encounter Details Date Type Department Care Team (Latest Contact Info) Description 09/16/2022 9:17 AM EDT - 09/16/2022 11:59 PM EDT Hospital Encounter [facility] Therapy [address] [place] [address] Madelyn Ovalles Acquired absence of [...] * Progress Notes - Madelyn Ovalles - 09/16/2022 9:45 AM EDT [facility] PT 30 Day Progress Report Time in: 09:40 Time out: 10:30 Date: 09/16/22 Name: Buzz Hurley : 1965 Past Medical [...] OF STENT N/A Cath Stent Placement from [facility] CHOLECYSTECTOMY N/A Cholecystectomy from [facility] SUBJECTIVE Patient reports that his blood pressure was 170/83 mmHg and his blood sugar was 132. He states thathis blood sugar was as low as 55 yesterday. He states that he is feeling better today though. He states that he is still practicing without assistive device. When I go out I use the cane all the time. He reports that he isn't going to the [facility] because it is so far of a walk from the parking lot. Referring Physician: Ajay Goddard MD/Erik Hurley MD [...] with step length on right with improved step continuity and swing phase on left. Without assistive device: Patient yolandaos asymmetrical stance time, though demos improved upright posture and step length. es given to keep walker closer with improved glute recruitment. Patient has inconsistent step lengths and decreased step continuity. AROM (In Degrees): Initial 07/10/22 09/16/22 Left Right Left Right Did not assess Hip Flexion WNL WNL WNL WNL Hip [...] Measure/Functional Tests: Initial 04/22/22 05/13/22 06/10/22 07/10/22 08/12/22 09/16/22 AMPRO: 31/47 32/47 30/47 33/47 35/47 36/47 35/47 K1 (-) K2 (-) K3 (-) K4 (-) TUG: Initial: 45.02 with wide-base quad cane. (>19 seconds indicated high risk of falls) 04/22/22: 37.8 sec with wide based quad cane. 05/13/22: 43.2 sec with wide based quad cane. 06/10/22: 50.2 sec with wide based quad cane. 07/10/22: 39.1 sec with Wide based quad cane. 08/12/22: 36.8 sec with wide based quad cane, 46.8 sec without assistive device 09/16/22: 34.8 sec with Wide based quad cane, 40.7 sec without assistive device 6MWT with LBQC: Initial: not assessed 04/22/22: 235' with 1 seated rest break (at 161'/4 minutes, lasting 45 seconds) with Rolling Walker 05/13/22: 186' with 1 seated rest break (at 116'/4.5 minutes, lasting 45 seconds) with LBQC 06/10/22: 144' without rest (stopped at 5' to rest and did not resume) with LBQC 07/10/22: 240' with no rest break with LBQC 08/12/22: 224' with no rest break with LBQC. 09/16/22: 283' with no rest break with LBQC. Procedure/Treatment: PT Assessment Therapeutic Activity: Functional Mobility and Balance Testin minutes. Modalities: None Education Performed: Plan of Care - Progress made and Goals Reviewed ASSESSMENT Buzz Hurley is a 56 y.o. male who presents with a primary complaint of difficulty ambulating without assistive device. Patient is ambulating with LBQC community distances and has ceased using Rolling Walker completely. He continues to have difficulty with walking without assistive device at home. Buzz's AMPRO has no change, however he demos improvement with TUG using and not using assistive device and also demos 39' improvement on 6MWT. Mr. Hurley is making slow gains and would benefit fromcontinuing skilled therapy services for 8 more weeks to focus on gait, balance, and functional mobility training. Primary Language: [place] Islander Needs communication device: No Does the patient understand basic information? Yes, able to self manage. Barriers to learning: None Cultural/Taoist beliefs: None that will affect treatment Rehab Potential/Prognosis: Good Personal Factors/Comorbidities Affecting Care: Pre-Injury Condition , Prior history of condition, and Fear avoidance behavior Complexity: Moderate Complexity using Standard PT Assessment (74317) PLAN Patient to be seen 2 times [...] 1 Upper Extremity assist for ADL's. MET Rf Microwave Engineer Goals (12 weeks): Patient will demonstrate > 37/47 on the AMPRO to return to ambulation in the park. - Progressing(35/47) Patient will demonstrate TUG in </=19 seconds with LBQC for significantly improved safety with household ambulation. (< 19.0 sec for decreased risk of falls in amputee population) - Progressing(34.8 sec with LBQC) Patient will demonstrate >/= 4+/5 lower extremity strength for improved independence with IADLs.-MET Patient will report walking around home without assistive device and modified independence. Progressing (NEW GOAL) Patient will ambulate short community distances with LBQC for improved activity participation with family and friends. MET documented in this encounter Plan of Treatment Upcoming Encounters Date Type Department Care Team (Late st Contact Info) Description 03/07/2024 1:40 PM EST Office Visit [facility] [place] [address] 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
--- OUTSIDE RECORDS SUMMARY | 2024-02-23 18:59 | XMS_ITS | Encounter Summary ---
Author Organization 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) Impaired mobility Ajay Goddard MD [address] [facility] [address] [place] [address] Phone: tel: fax: [facility] [address] [place] [address] Phone: tel: fax: Referral ID Status Reason Start Date Expiration Date V isits Requested Visits Authorized [id number] Closed Specialty Services Required 03/06/2022 10/30/2022 1 44 Encounter Details Date Type Department Care Team (Latest Contact Info) Description 07/03/2022 9:24 AM EDT - 07/03/2022 11:59 PM EDT Hospital Encounter [facility] [address] [place] [address] Madelyn Ovalles Acquired absence of [...] * Progress Notes - Madelyn Ovalles - 07/03/2022 9:45 AM EDT [facility] Daily Note Name: Buzz Hurley : 1965 Diagnosis: L transfemoral amputation Time In: 9:45 Time Out: 10:27 SUBJECTIVE Patient reports that he's pretty good today. Pain (scale of 0-10): 0/10 OBJECTIVE Procedure/Treatment: Gait training with and without zeroG to improve stance phase on prosthesis and step length for 42 minutes Today's Treatment: 07/03/22 Prosthetic Gait Training with ZeroG: with 15% Body Weight Support and 4 fall control, XL harness with thigh straps. Ambulation without assistive device: cues for weight shift and Right step length. 180'x1 - with SC 180'x1, 90'x1 - 15% bodyweight support with good mechanics, until fatigued (last 45' of each ambulation) Side Steps: 15'x2 Prosthetic Gait Training: Patient ambulated 140' with Single Tip Cane and Supervision with wheelchair follow, working on increasing Left weight shift and Right step length, rolling off prosthetic toeto initiate swing phase, and heel strike to initiate prosthetic knee extension. Patient had no LOB. Therapeutic Activity with ZeroG: (not performed) with [...] home ambulation with Single Tip Cane. ASSESSMENT Buzz had much improved ambulation today. He fatigued quickly with sidestepping and needed multiple rest breaks today PLAN Mr. 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
--- OUTSIDE RECORDS SUMMARY | 2024-02-23 18:59 | XMS_ITS | Encounter Summary ---
Author Organization [facility] Address [address] [place] [address] Care Team Providers Care Front End Technician Name Role Phone Terence Ring Primary Care Provider [phone] Encounter Details Date Type Department Care Team (Latest Contact Info) Description 09/04/2022 Travel Social History Tobacco Use Types Packs/Day [...] Description 03/07/2024 1:40 PM EST Office Visit [facility] [place] [address] [facility], [address] [place] [address] Naeem Blunt MD [address] [place] [address] documented as of this encounter Visit Diagnoses Not on filedocumented in this encounter Additional Health Concerns Infection Onset Date Last Indicated Resolved Time MRSA Comment:Positive blood culture 03/03/2019 01/30/2024 documented as of this encounter Care Teams Front End Technician Relationship Specialty Start Date End Date Terence Ring [facility] [place] [address] PCP - General 08/09/20 03/23/23 documented as of this encounter
--- OUTSIDE RECORDS SUMMARY | 2024-02-23 18:59 | XMS_ITS | Encounter Summary ---
Author Organization [facility] Address [address] [place] [address] Care Team Providers Care Bankruptcy Processor Name Role Phone Terence Ring Primary Care Provider [phone] Encounter Details Date Type Department Care Team (Latest Contact Info) Description 08/14/2022 Travel Social History Tobacco Use Types Packs/Day [...] Description 03/07/2024 1:40 PM EST Office Visit [facility] [place] [address] [facility], [address] [place] [address] Naeem Blunt MD [address] [place] [address] documented as of this encounter Visit Diagnoses Not on filedocumented in this encounter Additional Health Concerns Infection Onset Date Last Indicated Resolved Time MRSA Comment:Positive blood culture 03/03/2019 01/30/2024 documented as of this encounter Care Teams Bankruptcy Processor Relationship Specialty Start Date End Date Terence Ring [facility] [place] [address] PCP - General 08/09/20 03/23/23 documented as of this encounter
--- OUTSIDE RECORDS SUMMARY | 2024-02-23 18:59 | XMS_ITS | Encounter Summary ---
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) Impaired mobility Ajay Goddard MD [address] [facility] [address] [place] [address] Phone: tel: fax: [facility] Therapy [address] [place] [address] Phone: tel: fax: Referral ID Status Reason Start Date Expiration Date V isits Requested Visits Authorized [id number] Closed Specialty Services Required 03/06/2022 10/30/2022 1 44 Encounter Details Date Type Department Care Team (Latest Contact Info) Description 06/24/2022 8:48 AM EDT - 06/24/2022 11:59 PM EDT Hospital Encounter [facility] Therapy [address] [place] [address] Madelyn Ovalles Acquired absence of [...] * Progress Notes - Madelyn Ovalles - 06/24/2022 9:45 AM EDT [facility] Daily Note Name: Buzz Hurley : 1965 Diagnosis: L transfemoral amputation Time In: 9:18 Time Out: 10:12 SUBJECTIVE Patient reports that he's pretty good today. Pain (scale of 0-10): 0/10 OBJECTIVE Procedure/Treatment: Gait training with and without zeroG to improve stance phase on prosthesis and step length for 54 minutes Today's Treatment: 06/24/22 Prosthetic Gait Training with ZeroG: with 20% Body Weight Support and 4 fall control, XL harness with thigh straps. Ambulation without assistive device: cues for weight shift and Right step length. 180'x2 - 20% bodyweight support with good mechanics. Last 45', patient demos much improved control after taking smaller steps and decreasing dilshad. 180'x2 - 15% bodyweight support with good mechanics. 180'x1 - 10% bodyweight support with increased instability during left stance phase due to fatigue and decreased support. 180'x2 - 15% bodyweight support with good mechanics. Prosthetic Gait Training: Patient ambulated 110' with Single Tip Cane and Contact Guard Assist/Supervision with wheelchair follow, working on increasing Left [...] a risk for falling. ASSESSMENT Buzz had much improved ambulation today. He continues to demonstrate improved tolerance with increased weight bearing and good step length. Occasionally he takes too large of left swing phase and has difficulty recovering normalized gait sequence. PLAN Mr. 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
--- OUTSIDE RECORDS SUMMARY | 2024-02-23 18:59 | XMS_ITS | Encounter Summary ---
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) Impaired mobility Ajay Goddard MD [address] [facility] [address] [place] [address] Phone: tel: fax: [facility] Out[facility] Therapy [address] [place] [address] Phone: tel: fax: Referral ID Status Reason Start Date Expiration Date V isits Requested Visits Authorized [id number] Closed Specialty Services Required 03/06/2022 10/30/2022 1 44 Encounter Details Date Type Department Care Team (Latest Contact Info) Description 09/02/2022 8:45 AM EDT - 09/02/2022 11:59 PM EDT Hospital Encounter [facility] Therapy [address] [place] [address] Madelyn Ovalles Acquired absence of [...] * Progress Notes - Madelyn Ovalles - 09/02/2022 9:45 AM EDT [facility] Daily Note Name: Buzz Hurley : 1965 Diagnosis: Left transfemoral amputation Time In: 9:35 Time Out: 10:20 SUBJECTIVE Patient states that the prosthesis still kicks itself out too far and it trips him up. He didn't goout this weekend and use his LBQC. He practiced walking without holding on to anything at home though. I can go 3 or 4 steps. He states that his son is coming up this weekend and he's going to try to get him to go to the [employer]. I want to walk through there some with a buggy. 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 Someone I can sit with and may prepare a few small meals. It'll give me something to look forward too. Nothing too strenuous. Pain (scale of 0-10): 0/10 OBJECTIVE Procedure/Treatment: Therapeutic Activities: Refer to exercise flowsheet. 5 minutes. Gait training with and without zeroG to improve stance phase on prosthesis and step length for 40 minutes Today's Treatment: 09/02/22 Prosthetic Gait Training with ZeroG: with 10% Body Weight Support and 4 fall control, XL harness with thigh straps. Ambulation without assistive device: cues for weight shift and Right step length 180', 210' including stop/go/fast/slow and side/stepping. Ambulation without assistive device 2x105' including 2 turns at 5% bodyweight support. Improved weight shift and tolerance with fatigue. 1 set carrying empty cup. Prosthetic Gait training without Assistive Device: 71' then 117'. Cues with fatigue to maintain good arm swing and stance phase. Increased trendelenburg to right when fatigued. 84' on textured surface with multiple turns. Followed by 98' with cues for glute recruitment when fatigued. Therapeutic Activity: Reaching for Cone on Floor with ZeroG at 10% bodyweight support x5 reps. No loss of balance and [...] area today as well as stopping/starting activities. Unable to trial outdoor ambulation today due to poor weather. PLAN Mr. Hurley would benefit from outdoor ambulation with LBQC to work on uneven surfaces and parking lot distractions. Working towards ambulating at home without assistive device independently. Patient needs reassessment next week. 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
--- OUTSIDE RECORDS SUMMARY | 2024-02-23 18:59 | XMS_ITS | Encounter Summary ---
Author Organization [facility] Address [address] [place] [address] Care Team Providers Care Robotics Software Engineer Name Role Phone Terence Ring Primary Care Provider [phone] Encounter Details Date Type Department Care Team (Latest Contact Info) Description 06/03/2022 Travel Social History Tobacco Use Types Packs/Day [...] suspected to have Coronavirus/COVID-19? No / Unsure 06/03/2022 9:22 AM EST documented as of this encounter Plan of Treatment Upcoming Encounters Date Type Department Care Team (Late st Contact Info) Description 03/07/2024 1:40 PM EST Office Visit [facility] [place] [address] [facility], [address] [place] [address] Naeem Blunt MD [address] [place] [address] documented as of this encounter Visit Diagnoses Not on filedocumented in this encounter Additional Health Concerns Infection Onset Date Last Indicated Resolved Time MRSA Comment:Positive blood culture 03/03/2019 01/30/2024 documented as of this encounter Care Teams Robotics Software Engineer Relationship Specialty Start Date End Date Terence Ring [facility] [place] [address] PCP - General 08/09/20 03/23/23 documented as of this encounter
--- OUTSIDE RECORDS SUMMARY | 2024-02-23 18:59 | XMS_ITS | Encounter Summary ---
Author Organization [facility] Address [address] [place] [address] Care Team Providers Care Junior Copywriter Name Role Phone Terence Ring Primary Care Provider [phone] Encounter Details Date Type Department Care Team (Latest Contact Info) Description 07/10/2022 Travel Social History Tobacco Use Types Packs/Day [...] Description 03/07/2024 1:40 PM EST Office Visit [facility] [employer] [place] [address] [facility], [address] [place] [address] Naeem Blunt MD [address] [place] [address] documented as of this encounter Visit Diagnoses Not on filedocumented in this encounter Additional Health Concerns Infection Onset Date Last Indicated Resolved Time MRSA Comment:Positive blood culture 03/03/2019 01/30/2024 documented as of this encounter Care Teams Junior Copywriter Relationship Specialty Start Date End Date Terence Ring [facility] [place] [address] PCP - General 08/09/20 03/23/23 documented as of this encounter
--- OUTSIDE RECORDS SUMMARY | 2024-02-23 18:59 | XMS_ITS | Encounter Summary ---
Author Organization [facility] Address [address] [place] [address] Care Team Providers Care Sales Analytics Manager Name Role Phone Terence Ring Primary Care Provider [phone] Encounter Details Date Type Department Care Team (Latest Contact Info) Description 09/02/2022 Travel Social History Tobacco Use Types Packs/Day [...] Description 03/07/2024 1:40 PM EST Office Visit [facility] [place] [address] [facility], [address] [place] [address] Naeem Blunt MD [address] [place] [address] documented as of this encounter Visit Diagnoses Not on filedocumented in this encounter Additional Health Concerns Infection Onset Date Last Indicated Resolved Time MRSA Comment:Positive blood culture 03/03/2019 01/30/2024 documented as of this encounter Care Teams Sales Analytics Manager Relationship Specialty Start Date End Date Terence Ring [facility] [place] [address] PCP - General 08/09/20 03/23/23 documented as of this encounter
--- OUTSIDE RECORDS SUMMARY | 2024-02-23 18:59 | XMS_ITS | Encounter Summary ---
Author Organization [facility] Address [address] [place] [address] Care Team Providers Care Hospital Tray Service Worker Name Role Phone Terence Ring Primary Care Provider [phone] Encounter Details Date Type Department Care Team (Latest Contact Info) Description 08/26/2022 Travel Social History Tobacco Use Types Packs/Day [...] Description 03/07/2024 1:40 PM EST Office Visit [facility] [place] [address] [facility], [address] [place] [address] Naeem Blunt MD [address] [place] [address] documented as of this encounter Visit Diagnoses Not on filedocumented in this encounter Additional Health Concerns Infection Onset Date Last Indicated Resolved Time MRSA Comment:Positive blood culture 03/03/2019 01/30/2024 documented as of this encounter Care Teams Hospital Tray Service Worker Relationship Specialty Start Date End Date Terence Ring [facility] [place] [address] PCP - General 08/09/20 03/23/23 documented as of this encounter
--- OUTSIDE RECORDS SUMMARY | 2024-02-23 18:59 | XMS_ITS | Encounter Summary ---
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) Impaired mobility Ajay Goddard MD [address] [facility] [address] [place] [address] Phone: tel: fax: [facility] [address] [place] [address] Phone: tel: fax: Referral ID Status Reason Start Date Expiration Date V isits Requested Visits Authorized [id number] Closed Specialty Services Required 03/06/2022 10/30/2022 1 44 Encounter Details Date Type Department Care Team (Latest Contact Info) Description 08/12/2022 9:38 AM EDT - 08/12/2022 11:59 PM EDT Hospital Encounter [facility] [address] [place] [address] Madelyn Ovalles Acquired absence of [...] * Progress Notes - Madelyn Ovalles - 08/12/2022 9:45 AM EDT [facility] PT 30 Day Progress Report Time in: 09:40 Time out: 10:30 Date: 08/12/22 Name: Buzz Hurley : 1965 Past Medical [...] OF STENT N/A Cath Stent Placement from [employer] CHOLECYSTECTOMY N/A Cholecystectomy from [employer] SUBJECTIVE Patient reports that his blood pressure was low this mornin/83 mmHg, blood sugar was 130's. He states that he is feeling good this morning. He continues to use quad cane at home for most ambulation. He has used it outside a few times on the sidewalk to his truck. He states that his drive way is mostly gravel, so he doesn't walk much outside with the cane. Referring Physician: Ajay Goddard MD/Erik Hurley MD Onset/Surgery Date: 03/08/2019 Pain (scale of 0-10): Location: residual limb Current Pain: 0/10 Highest Pain: 0/10 Lowest Pain: 0/10 Restriction/Precautions: none Patient Goals: To be able to walk without a cane. OBJECTIVE Gait: Community ambulation with Rolling Walker and Home ambulation with LBQC With LBQC: Patient khushi improved weight shift and dilshda with 3 point gait. He is improving [...] Tests: Initial 04/22/22 05/13/22 06/10/22 07/10/22 08/12/22 AMPRO: 3147 32/47 30/47 33/47 35/47 36/47 K1 (-) K2 (-) K3 (-) K4 () TUG: Initial: 45.02 with wide-base quad cane. (>19 seconds indicated high risk of falls) 04/22/22: 37.8 sec with wide based quad cane. 05/13/22: 43.2 sec with wide based quad cane. 06/10/22: 50.2 sec with wide based quad cane. 07/10/22: 39.1 sec with Wide based quad cane. 08/12/22: 36.8 sec with wide based quad cane, 46.8 sec without assistive device 6MWT with LBQC: [...] 224' with no rest break with LBQC. Procedure/Treatment: PT Assessment Therapeutic Activity: Functional Mobility and Balance Testin minutes. Gait Training: LBQC on foam mats to mimic uneven surface x8 minutes Modalities: None Education Performed: Plan of Care - Progress made and Goals Reviewed ASSESSMENT Buzz Hurley is a 56 y.o. male who presents with a primary complaint of difficulty ambulating without assistive device. 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 Buzz is making small functional mobility improvement with a 1 point increase on AMPRO and an 2.3 seconds improvement on TUG. He was able to perform TUG today without Assistive Device and is consistently walking 50'-75' Patient is progressing well with Zero-G for improved gait mechanics, balance, and endurance which is allowing him to be more active at home and more participatory with therapy. Mr. Hurley is making slow gains and would benefit from continuing skilled therapy services for 12 more weeks to focus on gait, balance, and functional mobility training. Primary Language: Romanian Needs communication device: No Does the patient understand basic information? Yes, able to self manage. Barriers to learning: None Cultural/Druze beliefs: None that will affect treatment Rehab Potential/Prognosis: Good Personal Factors/Comorbidities Affecting Care: Pre-Injury Condition , Prior history of condition, and Fear avoidance behavior Complexity: Moderate Complexity using Standard PT Assessment (32029) PLAN Patient to be seen 2 times [...] 1 Upper Extremity assist for ADL's. MET [facility] Goals (12 weeks): Patient will demonstrate > 37/47 on the AMPRO to return to ambulation in the park. - Progressing(36/47) Patient will demonstrate TUG in </=19 seconds with LBQC for significantly improved safety with household ambulation. (< 19.0 sec for decreased risk of falls in amputee population) - Progressing(36.8 sec with LBQC) Patient will demonstrate >/= 4+/5 lower extremity strength for improved independence with IADLs.-MET Patient will report walking around home without assistive device and modified independence. Progressing (NEW GOAL) Patient will ambulate short community distances with LBQC for improved activity participation with family and friends. 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
--- OUTSIDE RECORDS SUMMARY | 2024-02-23 18:59 | XMS_ITS | Encounter Summary ---
Author Organization [facility] Address [address] [place] [address] Care Team Providers Care Manager Star Name Role Phone Terence Ring Primary Care Provider [phone] Encounter Details Date Type Department Care Team (Latest Contact Info) Description 09/16/2022 Travel Social History Tobacco Use Types Packs/Day [...] Description 03/07/2024 1:40 PM EST Office Visit [facility] [place] [address] [facility], [address] [place] [address] Naeem Blunt MD [address] [place] [address] documented as of this encounter Visit Diagnoses Not on filedocumented in this encounter Additional Health Concerns Infection Onset Date Last Indicated Resolved Time MRSA Comment:Positive blood culture 03/03/2019 01/30/2024 documented as of this encounter Care Teams Manager Star Relationship Specialty Start Date End Date Terence Ring [facility] [place] [address] PCP - General 08/09/20 03/23/23 documented as of this encounter
--- OUTSIDE RECORDS SUMMARY | 2024-02-23 19:00 | XMS_ITS | Encounter Summary ---
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) Erik Hurley MD [address] [place] [address] Phone: tel: fax: [facility] [address] [place] [address] Phone: tel: fax: Referral ID Status Reason Start Date Expiration Date V isits Requested Visits Authorized [id number] Closed Consult and Treat 05/13/2022 11/12/2023 1 1 Reason for Visit * Consultation (Routine) - Closed Specialty Diagnoses / Procedures Referred By Contac t Referred To Contact Physical Therapy Diagnoses 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) Impaired mobility Ajay Goddard MD [id number] [place] [address] Phone: tel: fax: [facility] [address] [place] [address] Phone: tel: fax: Referral ID Status Reason Start Date Expiration Date V isits Requested Visits Authorized [id number] Closed Specialty Services Required 03/06/2022 10/30/2022 1 44 Encounter Details Date Type Department Care Team (Latest Contact Info) Description 05/13/2022 9:11 AM EST - 05/13/2022 11:59 PM EST Hospital Encounter [facility] [address] [place] [address] Madelyn Ovalles 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 No / Unsure 05/13/2022 9:11 AM EST documented as of this encounter Medications at Time of Discharge insulin detemir (Levemir) 100 UNIT/ML injection pen Inject 7-8 Units under the skin every night. 06/12/2020 02/04/2024 documented as of this encounter Miscellaneous Notes * Addendum Note - Madelyn Ovalles - 05/13/2022 9:30 AM Heri addended by: Madelyn Ovalles on: 05/15/2022 3:44 PM Actions taken: Specialty comments modified * Progress Notes - Madelyn Ovalles - 05/13/2022 9:30 AM EST [facility] Orthopedic Rehabilitation PT 30 Day Progress Report Time in: 932 Time out: 10:13 Date: 05/13/22 Name: Buzz Hurley : 1965 Past Medical [...] OF STENT N/A Cath Stent Placement from [employer] CHOLECYSTECTOMY N/A Cholecystectomy from [employer] SUBJECTIVE Patient reports that he has not been feeling well and that he was admitted in the hospital x1 day due to his blood sugar being in th 50's. He states that he has been checking his blood pressure and it has been staying pretty good. This morning his blood pressure was 163/78 mmHg at home and his blood sugars were 3 something Referring Physician: Ajay Goddard MD/Erik Hurley MD Onset/Surgery Date: 03/08/2019 Pain (scale of 0-10): Location: n/a Current Pain: 0/10 Highest Pain: 0/10 Lowest [...] then returns to previous hip flexed gait. Patient also has prosthetic external rotation at heel strike causing poor knee swing due to decreased toe off. Corrects when patient is closer to walker. AROM (In Degrees): Initial Current Left Right [...] prosthesis Outcome Measure/Functional Tests: Initial Reassess 04/22/22 Current AMPRO: 31/47 32/47 30/47 K1 (15-) K2 (27-) K3 (37-) K4 (43-) TUG: Initial: 45.02 with wide-base quad cane. (>19 seconds indicated high risk of falls) 04/22/22: 37.8 sec with wide based quad cane. Current: 43.2 sec with wide based quad cane 6MWT with LBQC: Initial: not assessed 04/22/22: 235' with 1 seated rest break (at 161'/4 minutes, lasting 45 seconds) Current: 186' with 1 seated rest break (at 116'/4.5 minutes, lasting 45 seconds) Procedure/Treatment: PT Assessment Therapeutic Activity: Functional Mobility and Balance Testing x40 minutes. Modalities: None Education Performed: Plan of Care - Progress made and Goals Reviewed ASSESSMENT Buzz Hurley is a 56 y.o. male who presents with a primary complaint of difficulty ambulating without assistive device. 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 Buzz does has minimally declined with functional mobility with a 2 point decrease on AMPRO and a 5.4 second increase on TUG. He also demos decreased distance with 6MWT. Patient has not been to therapy since last re-assessment due to hospitalization and illness, so some decline is expected. Mr. Hurley would benefit from re-initiating skilled therapy services for 8 more weeks to focus on gait, balance, and functionalmobility training. Prior to illness, patient was making slow, but steady, gains. Primary Language: Tajik Needs communication device: No Does the patient understand basic information? Yes, able to self manage. Barriers to learning: None Cultural/Restoration beliefs: None that will affect treatment Rehab Potential/Prognosis: Good Personal Factors/Comorbidities Affecting Care: Pre-Injury Condition , Prior history of condition, and Fear avoidance behavior Complexity: Moderate Complexity using Standard PT Assessment (50886) PLAN Patient to be seen 2 times per week for 8 weeks. Treatment/Interventions may include: Patient education, Development [...] with 1 Upper Extremity assist for ADL's. Er Nurse Goals (12 weeks): Patient will demonstrate > 37/47 on the AMPRO to return to ambulation in the park. - Progressing Patient will demonstrate TUG in </=19 seconds with LBQC for significantly improved safety with household ambulation. (< 19.0 sec for decreased risk of falls in amputee population) - Progressing Patient will demonstrate >/= 4+/5 lower extremity strength for improved independence with IADLs. Patient will report walking around home without assistive device and modified independence. 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) Once for 1 Occurrences starting 05/13/2022 until 05/13/2022 documented as of this encounter Visit Diagnoses Diagnosis 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
--- OUTSIDE RECORDS SUMMARY | 2024-02-23 19:00 | XMS_ITS | Encounter Summary ---
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 Outpatient Therapy [address] [place] [address] Phone: tel: fax: Referral ID Status Reason Start Date Expiration Date V isits Requested Visits Authorized [id number] Closed Specialty Services Required 03/06/2022 10/30/2022 1 44 Encounter Details Date Type Department Care Team (Latest Contact Info) Description 03/13/2022 8:51 AM EST - 03/13/2022 11:59 PM EST Hospital Encounter [facility] Outpatient Therapy [address] [place] [address] Madelyn Ovalles Above knee amputation [...] suspected to have Coronavirus/COVID-19? No / Unsure 03/13/2022 8:48 AM EST documented as of this encounter Medications at Time of Discharge insulin detemir (Levemir) 100 UNIT/ML injection pen Inject 7-8 Units under the skin every night. 06/12/2020 02/04/2024 documented as of this encounter Miscellaneous Notes * Addendum Note - Madelyn Ovalles - 03/13/2022 9:30 AM ROBERTncounter addended by: Madelyn Ovalles on: 03/13/2022 12:30 PM Actions taken: Clinical Note Signed, Check Out activity completed * Progress Notes - Madelyn Ovalles - 03/13/2022 9:30 AM EST [facility] Orthopedic Rehabilitation Daily Note Name: Buzz Hurley : 1965 Diagnosis: L transfemoral amputation Time In: 9:24 Time Out: 10:19 SUBJECTIVE Buzz reports that he is doing well. He is excited to try the new harness walking. Pain (scale of 0-10): 0/10 OBJECTIVE Procedure/Treatment: Gait training with zeroG to improve stance phase on prosthesis and step length for 54 minutes Today's Treatment: 03/13/22 Prosthetic Gait Training w/ ZeroG: with 15% Body Weight Support and 4 fall control, XL harness with thigh straps. LBQC x4 laps with cues for increased prosthetic stance phase and increased step length on Right. Attempted to progress towards 2 point gait pattern with moving Left foot and quad cane at the same time. Pt is able to perform approximately 25% of time Progressed to ambulation without assistive device. LBQC used for turning. Increased fall control to3 for patient comfort. Patient had difficulty maintaining balance when good step length initiated prosthetic knee swing, causing multiple losses of balance to the left with ZeroG assistance to correct. Performed standing step through pre-gait exercises for initiating prosthetic knee swing and heel strike to gain confidence in Left swing phase of gait. 1x10 reps, followed by performing in sequence x2 laps with decreased episodes of falls. Ended with pt ambulating x 4 laps with LBQC. Pt demos improved knee swing phase and step length. Prosthetic Gait Training: Patient ambulated 150' with rolling walker and improved upright posture. Pt had good Right step length and Left swing phase throughout entire distance. Patient needed 4 seated rest breaks due to lower back fatigue. Time used for education as per below. Modalities: None Education Performed: ZeroG use and safety Importance of gait mechanics for transitioning to no AD Increased muscle soreness after therapy sessions due to increased postural and gluteal muscle activation with decreased upper extremity support while walking. Non-pharmacological pain techniques including postural adjustment, heat, and ice. ASSESSMENT Mr. Xavi puri significantly improved upright posture, glute recruitment, Right step length, and left swing phase with ambulation after prosthetic gait training on ZeroG. Pt reports significant fatigue and low back soreness during treatment session, but reports none after treatment session. PLAN Mr. Hurley would benefit from continued gait training with ZeroG with focus on consistent Right Steplength and Left stance phase. Begin working on increasing gait speed and 2 point gait pattern with LBQC. Pt would benefit on using longer track length for more efficient treatment session. 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
--- OUTSIDE RECORDS SUMMARY | 2024-02-23 19:00 | XMS_ITS | Encounter Summary ---
Author Organization [facility] Address [address] [place] [address] Care Team Providers Care Inventory Worker Name Role Phone Terence Ring Primary Care Provider [phone] Encounter Details Date Type Department Care Team (Latest Contact Info) Description 04/08/2022 Travel Social History Tobacco Use Types Packs/Day [...] suspected to have Coronavirus/COVID-19? No / Unsure 04/08/2022 9:45 AM EST documented as of this encounter Plan of Treatment Upcoming Encounters Date Type Department Care Team (Late st Contact Info) Description 03/07/2024 1:40 PM EST Office Visit [facility] [place] [address] [facility], [address] [place] [address] Naeem Blunt MD [address] [place] [address] documented as of this encounter Visit Diagnoses Not on filedocumented in this encounter Additional Health Concerns Infection Onset Date Last Indicated Resolved Time MRSA Comment:Positive blood culture 03/03/2019 01/30/2024 documented as of this encounter Care Teams Inventory Worker Relationship Specialty Start Date End Date Terence Ring [facility] [place] [address] PCP - General 08/09/20 03/23/23 documented as of this encounter
--- OUTSIDE RECORDS SUMMARY | 2024-02-23 19:00 | XMS_ITS | Encounter Summary ---
Author Organization [facility] Address [address] [place] [address] Care Team Providers Care Tangible Personal Property Appraiser Name Role Phone Terence Ring Primary Care Provider [phone] Encounter Details Date Type Department Care Team (Late st Contact Info) Description 01/28/2021 Telephone [facility] Endocrinology [address], [address] [place] [address] Geraldine Doe, TRIAGE TECHNICIAN [address] [place] [address] Social History Tobacco Use Types Packs/Day Years [...] encounter Miscellaneous Notes * Telephone Encounter - Ruth Ann Gómez, RD - 01/28/2021 1:58 PM EDT Pt reports all BGs above 300 when home testing tid. Reports he is taking 50 units of Levemir HS andNovolog 20 tid. Upon further discussion he said he is using Novolog 16 units plus correction 1:20>140 tid. Advised ot increase Levemir 10% to 55 units HS and Novolog to new base of 18 units plus correction.Will email correction scale to him and request an appointment for him. * Telephone Encounter - Radha Quijano - 01/28/2021 1:37 PM EDT Patient Phone Message Reason for Call: Pt went to his family doctor on Wednesday. Pt's blood sugar was: 464 A1C-14 Pt was told to contact our office to see if anything needs to be adjusted Best contact number and optimal time of day to reach caller: [phone] Note: Please do not reply to this message. Follow-up communication and further actions as a result of this message need to be communicated with the patient directly, if the patient is not active onMyChart. If the patient is active on MyChart, they will receive notification of the communication/outcome via popADhart. documented in this encounter Plan of Treatment Upcoming Encounters Date Type Department Care Team (Late st Contact Info) Description 03/07/2024 1:40 PM EST Office Visit [facility] [place] [address] [facility] [address] [facility], [address] [place] [address] Naeem Blunt MD [address] [place] [address] documented as of this encounter Visit Diagnoses Not on filedocumented in this encounter Additional Health Concerns Infection Onset Date Last Indicated Resolved Time MRSA Comment:Positive blood culture 03/03/2019 01/30/2024 documented as of this encounter Care Teams Tangible Personal Property Appraiser Relationship Specialty Start Date End Date Terence Ring [facility] [place] [address] PCP - General 08/09/20 03/23/23 documented as of this encounter
--- OUTSIDE RECORDS SUMMARY | 2024-02-23 19:00 | XMS_ITS | Encounter Summary ---
Author Organization [facility] Address [address] [place] [address] Care Team Providers Care Projector Booth Operator Name Role Phone Terence Ring Primary Care Provider [phone] Encounter Details Date Type Department Care Team (Latest Contact Info) Description 03/13/2022 Travel Social History Tobacco Use Types Packs/Day [...] Description 03/07/2024 1:40 PM EST Office Visit [facility] [place] [address] [facility] [address], [address] [place] [address] Naeem Blunt MD [address] [place] [address] documented as of this encounter Visit Diagnoses Not on filedocumented in this encounter Additional Health Concerns Infection Onset Date Last Indicated Resolved Time MRSA Comment:Positive blood culture 03/03/2019 01/30/2024 documented as of this encounter Care Teams Projector Booth Operator Relationship Specialty Start Date End Date Terence Ring [facility] [place] [address] PCP - General 08/09/20 03/23/23 documented as of this encounter
--- OUTSIDE RECORDS SUMMARY | 2024-02-23 19:00 | XMS_ITS | Encounter Summary ---
Author Organization [facility] Address [address] [place] [address] Care Team Providers Care Slate Mixer Name Role Phone Terence Ring Primary Care Provider [phone] Judy Minaya HAND BINDER CUTTER Unavailable Unavailable Erik Hurley MD Primary Care Provider [phone] Pcp, No Primary Care Provider UnavailCierra Sanchez HAND BINDER CUTTER Unavailable UnavailErik Nolasco MD Primary Care Provider [phone] Pcp, No Primary Care Provider UnavailCeci Mclean HAND BINDER CUTTER Unavailable Unavailable Encounter Details Date Type Department Care Team (Late Contact Info) Description 08/07/2021 Orders Only External Location [address] [place] [id number] Gonzalo Almonte MD [address] [facility] [address] [place] [address] Social History Tobacco Use Types Packs/Day Years [...] Upcoming Encounters Date Type Department Care Team ([facility] Contact Info) Description 03/07/2024 1:40 PM EST Office Visit [facility] [place] [address] [facility], [address] [place] [address] Naeem Blunt MD [address] [place] [address] documented as of this encounter Procedures Procedure Name Priority Date/Time Associated Diagnosis Comments XR THORACIC OUTSIDE IMAGES 08/07/2021 10:13 AM EDT documented in this encounter Results * XR THORACIC OUTSIDE IMAGES (08/07/2021 10:13 AM EDT) Anatomical Region Laterality Modality Radiographic Adore ging 08/07/2021 10:1 3 AM EDT Gonzalo Almonte MD IMG XR PROCEDURES Final Res ult documented in this encounter Visit Diagnoses Not on filedocumented in this encounter Additional Health Concerns Infection Onset Date Last Indicated Resolved Time MRSA Comment:Positive blood culture 03/03/2019 01/30/2024 COVID-19 Rule-Out 02/03/2023 02/03/2023 02/03/2023 7:12 AM EST Respiratory Rule-Out 02/03/2023 02/03/2023 023 8:57 AM EST Respiratory Rule-Out 06/15/2023 06/16/2023 024 6:08 AM EDT MRSA Escalation Plan Comment:MRSA Escalation Plan is in effect as of 05/10/2023. Patient will require contact precautions for the duration of the hospital admission. 06/16/2023 06/16/2023 12/17/2023 6:08 AM E DT MRSA Escalation Plan Comment:MRSA Escalation Plan is in effect as of 12/30/2023. Patient will require contact precautions for the duration of the hospital admission, regardless of movement to another unit. This infection may be resolved upon discharge from the hospital. 02/01/2024 02/01/20242023 5:23 AM EST documented as of this encounter Care Teams Slate Mixer Relationship Specialty Start Date End Date Terence Ring [address] [place] [address] PCP - General 08/09/20 03/23/23 Erik Hurley MD [address] [place] [address] PCP - General 03/24/23 06/13/23 Pcp, No [address] [place] [address] PCP - General Family Medicine 06/14/23 06/17/23 Erik Hurley MD [address] [place] [address] PCP - General 06/18/23 01/29/24 Pcp, No [address] [place] [address] PCP - General Family Medicine 01/30/24 Judy Minaya, [place] VALUE[employer]BASED TR[employer]FORMATION [place] [address] TCM Nurse 02/16/23 03/18/23 Cierra Evans, [place] VAL[employer]-BASED [employer]FORMATION [place] [address] TCM Nurse 06/18/23 06/18/23 Ceci Greene, HAND BINDER CUTTER VAL[employer]ED TR[employer]FORMATION [place] [address] TCM Nurse 02/07/24 03/08/24 documented as of this encounter
--- OUTSIDE RECORDS SUMMARY | 2024-02-23 19:00 | XMS_ITS | Encounter Summary ---
Author Organization [facility] Address [address] [place] [address] Care Team Providers Care Regulatory Affairs Spec Name Role Phone Terence Ring Primary Care Provider [phone] Encounter Details Date Type Department Care Team (Latest Contact Info) Description 04/01/2022 Travel Social History Tobacco Use Types Packs/Day [...] suspected to have Coronavirus/COVID-19? No / Unsure 04/01/2022 8:56 AM EST documented as of this encounter Plan of Treatment Upcoming Encounters Date Type Department Care Team (Late st Contact Info) Description 03/07/2024 1:40 PM EST Office Visit [facility] [place] [address] [address], [address] [place] [address] Naeem Blunt MD [address] [place] [address] documented as of this encounter Visit Diagnoses Not on filedocumented in this encounter Additional Health Concerns Infection Onset Date Last Indicated Resolved Time MRSA Comment:Positive blood culture 03/03/2019 01/30/2024 documented as of this encounter Care Teams Regulatory Affairs Spec Relationship Specialty Start Date End Date Terence Ring [facility] [place] [address] PCP - General 08/09/20 03/23/23 documented as of this encounter
--- OUTSIDE RECORDS SUMMARY | 2024-02-23 19:00 | XMS_ITS | Encounter Summary ---
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) Impaired mobility Ajay Goddard MD [address] [facility] [address] [place] [address] Phone: tel: fax: [facility] [address] [place] [address] Phone: tel: fax: Referral ID Status Reason Start Date Expiration Date V isits Requested Visits Authorized [id number] Closed Specialty Services Required 03/06/2022 10/30/2022 1 44 Encounter Details Date Type Department Care Team (Latest Contact Info) Description 04/22/2022 8:52 AM EST - 04/22/2022 11:59 PM EST Hospital Encounter [facility] [address] [place] [address] Madelyn Ovalles Above knee amputation [...] suspected to have Coronavirus/COVID-19? No / Unsure 04/22/2022 8:52 AM EST documented as of this encounter Medications at Time of Discharge insulin detemir (Levemir) 100 UNIT/ML injection pen Inject 7-8 Units under the skin every night. 06/12/2020 02/04/2024 documented as of this encounter Miscellaneous Notes * Progress Notes - Madelyn Ovalles - 04/22/2022 9:30 AM EST [facility] Orthopedic Rehabilitation Daily Note Name: Buzz Hurley : 1965 Diagnosis: @DX@ Time in: 0930 Time out: 10:10 Patient came in with complaints of dizziness, funny vision, difficulty formulating words, and general fatigue and pain. Patient reports that he had coffee and juice for breakfast this morning, but has not eaten anything. I took my insulin, you think that would help my blood sugar. Patient reports that he checked his blood sugar this morning but can't remember what it was. My blood pressure was good. 156/78 BP LUE seated: 116/76 mmHg. Unable to assess blood sugar. Patient was given granola bar and juice. Reports that he is feeling better, but that he still feels funny. BP LUE seated: 114/78 mmHg. Patient requested crackers and water. Reports that he continues to feel better. Patient educated on the quick effects of juice for temporary increase in blood sugar, but can causeblood sugars to drop quickly also. That in addition to insulin is likely the cause of current condition. Recommended that patient eat prior to coming to therapy while still taking appropriate insulinas directed by physician. Discussed that food causes blood sugar to be more stable for longer periods of time. These recommendations have been given several times, however patient continues to episodically not eat before therapy causing blood sugar to drop. Educated patient that if he continues to feel poorly, have difficulty with his thinking, vision, and dizziness that he needs to go the emergency room for medical attention. 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
--- OUTSIDE RECORDS SUMMARY | 2024-02-23 19:00 | XMS_ITS | Encounter Summary ---
Author Organization [facility] Address [address] [place] [address] Care Team Providers Care Barrel Assembly Inspector Name Role Phone Terence Ring Primary Care Provider [phone] Encounter Details Date Type Department Care Team (Latest Contact Info) Description 04/17/2022 Travel Social History Tobacco Use Types Packs/Day [...] suspected to have Coronavirus/COVID-19? No / Unsure 04/17/2022 8:39 AM EST documented as of this encounter Plan of Treatment Upcoming Encounters Date Type Department Care Team (Late st Contact Info) Description 03/07/2024 1:40 PM EST Office Visit [facility] [place] [address] [facility], [address] [place] [address] Naeem Blunt MD [address] [place] [address] documented as of this encounter Visit Diagnoses Not on filedocumented in this encounter Additional Health Concerns Infection Onset Date Last Indicated Resolved Time MRSA Comment:Positive blood culture 03/03/2019 01/30/2024 documented as of this encounter Care Teams Barrel Assembly Inspector Relationship Specialty Start Date End Date Terence Ring [facility] [place] [address] PCP - General 08/09/20 03/23/23 documented as of this encounter
--- OUTSIDE RECORDS SUMMARY | 2024-02-23 19:00 | XMS_ITS | Encounter Summary ---
Author Organization [facility] Address [address] [place] [address] Care Team Providers Care Early Intervention School Psychologist Name Role Phone Terence Ring Primary Care Provider [phone] Encounter Details Date Type Department Care Team (Latest Contact Info) Description 05/13/2022 Travel Social History Tobacco Use Types Packs/Day [...] Description 03/07/2024 1:40 PM EST Office Visit [facility] [place] [address] [facility], [address] [place] [address] Naeem Blunt MD [address] [place] [address] documented as of this encounter Visit Diagnoses Not on filedocumented in this encounter Additional Health Concerns Infection Onset Date Last Indicated Resolved Time MRSA Comment:Positive blood culture 03/03/2019 01/30/2024 documented as of this encounter Care Teams Early Intervention School Psychologist Relationship Specialty Start Date End Date Terence Ring [facility] [place] [address] PCP - General 08/09/20 03/23/23 documented as of this encounter
--- OUTSIDE RECORDS SUMMARY | 2024-02-23 19:00 | XMS_ITS | Encounter Summary ---
Author Organization [facility] Address [address] [place] [address] Care Team Providers Care Route Supervisor Name Role Phone Terence Ring Primary Care Provider [phone] Judy Minaya INDUSTRIAL TECHNOLOGY TEACHER Unavailable Unavailable Erik Hurley MD Primary Care Provider [phone] Pcp, No Primary Care Provider UnavailCierra Sanchez INDUSTRIAL TECHNOLOGY TEACHER Unavailable Unavailabl e Erik Hurley MD Primary Care Provider [phone] Pcp, No Primary Care Provider Unavailabl Ceci Baires INDUSTRIAL TECHNOLOGY TEACHER Unavailable Unavailable Reason for Visit * Reason Comments Med Refill Encounter Details Date Type Department Care Team (Late Contact Info) Description 10/29/2021 Refill [facility] [address] [facility] [facility], [address] [place] [address] Geraldine Doe, REPORT CHECKER [address] [facility] [address] [place] [address] Social History Tobacco Use Types [...] Description 03/07/2024 1:40 PM EST Office Visit [facility] [place] [address] [facility] [address], [address] [place] [address] Naeem Blunt MD [address] [place] [address] documented as of this encounter [...] documented as of this encounter Care Teams Route Supervisor Relationship Specialty Start Date End Date Terence Ring [address] [place] [address] PCP - General 08/09/20 03/23/23 Erik Hurley MD [address] [place] [address] PCP - General 03/24/23 06/13/23 Pcp, No [address] [place] [address] PCP - General Family Medicine 06/14/23 06/17/23 Erik Hurley MD [address] [place] [address] PCP - General 06/18/23 01/29/24 Pcp, No [address] [place] [address] PCP - General Family Medicine 01/30/24 Judy Minaya LPN [employer] [place] [address] TCM Nurse 02/16/23 03/18/23 Cierra Evans LPN [employer] [place] [address] TCM Nurse 06/18/23 06/18/23 Ceci Greene LPN [employer] [place] [address] TCM Nurse 02/07/24 03/08/24 documented as of this encounter
--- OUTSIDE RECORDS SUMMARY | 2024-02-23 19:00 | XMS_ITS | Encounter Summary ---
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) Impaired mobility Ajay Goddard MD [address] [address] Phone: tel: fax: [facility] [address] [place] [address] Phone: tel: fax: Referral ID Status Reason Start Date Expiration Date V isits Requested Visits Authorized [id number] Closed Specialty Services Required 03/06/2022 10/30/2022 1 44 Scheduling Instructions [facility] Reason for Visit * Consultation (Routine) - Closed Specialty Diagnoses / Procedures Referred By Neno noel Referred To Contact Physical Therapy Diagnoses 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) Impaired mobility Ajay Goddard MD [address] [address] Phone: tel: fax: [facility] [address] [place] [address] Phone: tel: fax: Referral ID Status Reason Start Date Expiration Date V isits Requested Visits Authorized [id number] Closed Specialty Services Required 03/06/2022 10/30/2022 1 44 Encounter Details Date Type Department Care Team (Latest Contact Info) Description 03/11/2022 9:05 AM EST - 03/11/2022 11:59 PM EST Hospital Encounter [facility] [address] [place] [address] Madelyn Ovalles Above knee amputation of left [...] suspected to have Coronavirus/COVID-19? No / Unsure 03/11/2022 8:54 AM EST documented as of this encounter Medications at Time of Discharge insulin detemir (Levemir) 100 UNIT/ML injection pen Inject 7-8 Units under the skin every night. 06/12/2020 02/04/2024 documented as of this encounter Miscellaneous Notes * Addendum Note - Madelyn Ovalles - 03/11/2022 9:30 AM ESTEncounter addended by: Madelyn Ovalles on: 03/11/2022 1:18 PM Actions taken: Clinical Note Signed * Progress Notes - Madelyn Ovalles - 03/11/2022 9:30 AM EST Images from the original note were not included. [facility] Orthopedic Rehabilitation PT Evaluation Date: 03/11/22 Name: Buzz Hurley : 1965 Past Medical [...] OF STENT N/A Cath Stent Placement from [employer] CHOLECYSTECTOMY N/A Cholecystectomy from [employer] SUBJECTIVE Patient reports that he had appointment with account review specialist last week for foot adjustment. He is wearing his prosthesis all day long. He reports he's noticing a crease on residual limb after removal of prosthesis at end of day that has resolved by next morning. He has spoken with the account review specialist aboutit, but they haven't been able to fix the pressure on the back of his leg. They don't know what they're doing. It still doesn't work right. He is checking skin daily using long handled mirror and reports no skin breakdown on residual limb. It's just dry. I'm dry all over. He states that he getsedema in his right leg and it increases as day progresses but has decreased by next morning. Referring Physician: Ajay Goddard MD History of Present Injury/Status: Mr. Hurley had a non-healing wound in 2019 that resulted in trans-femoral amputation. He has been having acute in-patient rehabilitation and outpatient rehabilitation. He has returned to outpatient therapy to be able to walk without a cane. Diagnosis: Left trans-femoral amputation Onset/Surgery Date: 03/08/2019 Mechanism Of Injury: Non-healing foot ulcer with MRSA Prior Treatment For Diagnosis: wound care, multiple surgeries Diagnostic Testing: I&D, x-ray Social History: Lives with ex-. Home Environment: Single level apartment with one step to enter. Level of Function: Pt is independent with home ambulation with LBQC and short community distances with Rolling Walker. He is Independent with all ADLs. Pain (scale of 0-10): Location: n/a Current Pain: 0/10 Highest Pain: 0/10 Lowest Pain: 0/10 Restriction/Precautions: none Patient Goals: To be able to walk without a cane. OBJECTIVE Objective Lower Extremity Amputee Posture/Observation: anterior pelvic tilt with increased Left hip flexion, decreased lumbar lordosis, thoracic kyphosis, and forward head Prosthesis: Total contact above knee prosthesis with pin-lock suspension system and microprocessor knee. Gait: Community ambulation with Rolling Walker and Home ambulation with LBQC With LBQC: Patient demos decreased stance time on Left and decreased step length on Right. He has difficulty maintaining weight shift enough to cue the microprocessor knee to flex and initiate swing phase. With RW: Patient demos symmetrical stance time, however pt has significant forward flexion at hips and poor hip extension activation. Cues given to keep walker closer to improved glute recruitment, however pt does not correct. AROM (In Degrees): Left Right Hip Flexion WNL WNL Hip Extension 0 deg WNL Hip Abduction WNL WNL Knee Flexion N/A WNL Knee Extension N/A WNL Strength/Motor Control: Left Right Hip Flexion 5/5* 5/5 Hip Extension 3-/5* 4/5 Hip Abduction 5/5* 4+/5 Knee Flexion N/A 4+/5 Knee Extension N/A 5/5 Ankle DF N/A 4/5 Ankle Ev N/A 5/5 Ankle Inv N/A 4+/5 *Left with prosthesis Edema: Right lower edema noted, though controlled to mid-calf with compression socks (see picture) Skin/Wound: right lower leg with moderate erythema and small open areas (see picture) Outcome Measure/Functional Tests: AMPRO: K1 (15-) K2 (27-) K3 (37-42) K4 (43-) TU.02 with wide-base quad cane. (>19 seconds indicated high risk of falls) Procedure/Treatment: PT Evaluation Gait Training 13 mins - Pt ambulated 75'x2 w/ LBQC and 85' x1 RW with cues on increasing stance time on Left prosthesis and increasing right step length further than the left foot. Pt continues to have difficulty weight shifting and maintaining stance time long enough on left to perform full step length on right. With RW cued patient for more upright posture, keeping walker closer to improve glute recruitment. However, pt was unable to correct due to fatigue. Modalities: None Education Performed: Plan of Care, Importance of skin care including lotion, Importance of checking skin at end of day to see how long it takes crease to go away (10-15 mins to prevent skin damage). ASSESSMENT Buzz Hurley is a 56 y.o. male who presents with a primary complaint of difficulty ambulating without assistive device. 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 Patient is demonstrating deficits in range of motion, muscle performance, gait, balance, posture, and aerobic capacity/e ndurance. Skilled therapy is appropriate at this time to address these impairments and to move the patient towards their goal of walking without assistive device. Primary Language: Malaysian Needs communication device: No Does the patient understand basic information? Yes, able to self manage. Barriers to learning: None Cultural/Sabianist beliefs: None that will affect treatment Rehab Potential/Prognosis: Good Personal Factors/Comorbidities Affecting Care: Pre-Injury Condition , Prior history of condition, and Fear avoidance behavior Complexity: Moderate Complexity using Standard PT Assessment (79843) PLAN Patient to be seen 2 times per week for 12 weeks. Treatment/Interventions may include: Patient education, Development of HEP, Therapeutic Exercise, Therapeutic Activity, and Manual Therapy. Gait Training, Prosthetic Training and Neuromuscular Rehab. Short Term Goals (4 weeks): Patient will demonstrate independence with home exercise program for improved strength, ROM, balance and endurance to perform functional activities. Patient will report and/or demonstrate independence with bilateral LE skin checks, skin care, sock management, and wearing schedule. Patient will demonstrate >/= 3+ gluteus drew strength for improved prosthetic control with ambulation. Patient will ambulate 125' with LBQC assistive device for independent home ambulation. Patient will be able to stand x 3 minutes with 1 Upper Extremity assist for ADL's. Retirement Goals (12 weeks): Patient will demonstrate > 37/47 on the AMPRO to return to ambulation in the park. Patient will demonstrate TUG in </=19 seconds with LBQC for significantly improved safety with household ambulation. (< 19.0 sec for decreased risk of falls in amputee population) Patient will demonstrate >/= 4+/5 lower extremity strength for improved independence with IADLs. Patient will report walking around home without assistive device and modified independence. 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
--- OUTSIDE RECORDS SUMMARY | 2024-02-23 19:00 | XMS_ITS | Encounter Summary ---
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) Impaired mobility Ajay Goddard MD [address] [facility] [address] [place] [address] Phone: tel: fax: [facility] Outpatient Therapy [address] [place] [address] Phone: tel: fax: Referral ID Status Reason Start Date Expiration Date V isits Requested Visits Authorized [id number] Closed Specialty Services Required 03/06/2022 10/30/2022 1 44 Encounter Details Date Type Department Care Team (Latest Contact Info) Description 05/29/2022 8:59 AM EST - 05/29/2022 11:59 PM EST Hospital Encounter [facility] Therapy [address] [place] [address] Madelyn Ovalles Acquired absence of [...] suspected to have Coronavirus/COVID-19? No / Unsure 05/29/2022 8:58 AM EST documented as of this encounter Medications at Time of Discharge insulin detemir (Levemir) 100 UNIT/ML injection pen Inject 7-8 Units under the skin every night. 06/12/2020 02/04/2024 documented as of this encounter Miscellaneous Notes * Progress Notes - Madelyn Ovalles - 05/29/2022 9:45 AM EST [facility] Orthopedic Rehabilitation Daily Note Name: Buzz Hurley : 1965 Diagnosis: L transfemoral amputation Time In: 9:33 Time Out: 10:18 SUBJECTIVE Patient reports that he moved to his new apartment this week. There is a slight decline to get out of his apartment that is a bit of a challenge. Pain (scale of 0-10): 0/10 OBJECTIVE Procedure/Treatment: Gait training with and without zeroG to improve stance phase on prosthesis and step length for 44 minutes Today's Treatment: 05/29/22 Prosthetic Gait Training with ZeroG: with 20% Body Weight Support and 4 fall control, L harness with thigh straps. Ambulation without assistive device: cues for weight shift and Right step length. 60'x6 - 6 episodes of balance loss, 3 with fall recovery assist - mostly when pivot turning at end of walkway. Patient fatigues quickly and needs rest breaks between each rep. As patient fatigues, patient demos significant loss of prosthetic control including taking too big of a step, decreased weight shift, poor knee swing initiation. After resting, abnormal gait mechanics improve. 60'x1 with 15% body weight support continued good mechanics. 60'x1 with 10% body weight support, poor mechanics unable to maintain balance, decreased weight shift, and difficulty with swing phase. Prosthetic Gait Training: Patient ambulated 75' with Single Tip Cane and Contact Guard Assist with wheelchair follow, working on increasing Left weight shift and Right step length, rolling off prosthetic toe to initiate swing phase, and heel strike to initiate prosthetic knee extension. Patient hadno LOB's. Therapeutic Activity with ZeroG (not performed): [...] ZeroG today at 15% body weight support. Patient demos improved quality of gait mechanics. Patient khushi improved sit<>stands today without reaching for assist. PLAN Mr. Hurley would benefit from continued gait training with ZeroG with focus on consistent Right Steplength, Left stance and swing phases. Continue to work with 15% body weight support to improve mechanics without assistive device, then slowly decrease body weight support as tolerated. 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
--- OUTSIDE RECORDS SUMMARY | 2024-02-23 19:00 | XMS_ITS | Encounter Summary ---
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 [address] [place] [address] Phone: tel: fax: [facility] Outpatient Therapy [address] [place] [address] Phone: tel: fax: Referral ID Status Reason Start Date Expiration Date V isits Requested Visits Authorized [id number] Closed Specialty Services Required 03/06/2022 10/30/2022 1 44 Encounter Details Date Type Department Care Team (Latest Contact Info) Description 04/17/2022 8:40 AM EST - 04/17/2022 11:59 PM EST Hospital Encounter [facility] Outpatient Therapy [address] [place] [address] Madelyn Ovalles Above knee amputation [...] * Progress Notes - Madelyn Ovalles - 04/17/2022 9:30 AM EST [facility] Orthopedic Rehabilitation PT 30 Day Progress Report Time in: 932 Time out: 10:13 Date: 04/17/22 Name: Buzz Hurley : 1965 Past Medical [...] OF STENT N/A Cath Stent Placement from [facility] CHOLECYSTECTOMY N/A Cholecystectomy from [facility] SUBJECTIVE Patient reports that he feels things are getting better with therapy. He states that he feels like his walking distance is better. There's still fear. Referring Physician: Ajay Goddard MD History of Present Injury/Status: Mr. Hurley had a non-healing wound in 2018 that resulted in trans-femoral amputation. He has been having acute in-patient rehabilitation and outpatient rehabilitation. Diagnosis: Left trans-femoral amputation Onset/Surgery Date: 03/08/2019 [...] ambulation with LBQC With LBQC: Patient demos improved Left stance time Right step length. He demos improve toe off initiation of swing phase, though inconsistent and not always controlled. With RW: Patient yolandaos symmetrical stance time, however pt has significant forward flexion at hips and poor hip extension activation. Cues given to keep walker closer to improved glute recruitment, however pt does not correct. AROM (In Degrees): Initial Left Right Hip Flexion WNL WNL Hip Extension 0 deg WNL Hip Abduction WNL WNL Strength/Motor Control: Left Right Hip Flexion 5/5* 5/5 Hip Extension 3-/5* 4/5 Hip Abduction 5/5* 4+/5 Knee Flexion N/A 4+/5 Knee Extension N/A 5/5 Ankle DF N/A 4/5 Ankle Ev N/A 5/5 Ankle Inv N/A 4+/5 *Left with prosthesis Outcome Measure/Functional Tests: Initial Current: AMPRO: 32 K1 (15-) K2 (-) K3 (-) K4 (-) TUG: Initial: 45.02 with wide-base quad cane. (>19 seconds indicated high risk of falls) Current: 37.8 sec with wide based quad cane. 6MWT with LBQC: Initial: not assessed Current: 235' with 1 seated rest break (at 161'/4 minutes, lasting 45 seconds) Procedure/Treatment: PT Assessment Therapeutic Activity: Functional Mobility and Balance Testing x40 minutes. Modalities: None Education Performed: Plan of Care - Progress made and Goals Reviewed ASSESSMENT Buzz Hurley is a 56 y.o. male who presents with a primary complaint of difficulty ambulating without assistive device. 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 Patient demos improved functional mobility with an 8 second improvement on TUG and 1 point improvement on AMPRO. Patient was able to tolerate 6 minute walk test assessment for the first time. Patient will need ROM and Strength measurements next visits, due to increased amount of time needed for functional mobility assessment. Overall making steady gains. Primary Language: Iranian Needs communication device: No Does the patient understand basic information? Yes, able to self manage. Barriers to learning: None Cultural/Jew beliefs: None that will affect treatment Rehab Potential/Prognosis: Good Personal Factors/Comorbidities Affecting Care: Pre-Injury Condition , Prior history of condition, and Fear avoidance behavior Complexity: Moderate Complexity using Standard PT Assessment (15939) PLAN Patient to be seen 2 times [...] with 1 Upper Extremity assist for ADL's. 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 [address] PCP - General 08/09/20 03/23/23 documented as of this encounter
--- OUTSIDE RECORDS SUMMARY | 2024-02-23 19:00 | XMS_ITS | Encounter Summary ---
Author Organization [facility] Address [address] [place] [address] Care Team Providers Care Refiner Operator Name Role Phone Terence Ring Primary Care Provider [phone] Encounter Details Date Type Department Care Team (Latest Contact Info) Description 03/11/2022 Travel Social History Tobacco Use Types Packs/Day [...] Description 03/07/2024 1:40 PM EST Office Visit [facility] [place] [address] [facility], [address] [place] [address] Naeem Blunt MD [address] [place] [address] documented as of this encounter Visit Diagnoses Not on filedocumented in this encounter Additional Health Concerns Infection Onset Date Last Indicated Resolved Time MRSA Comment:Positive blood culture 03/03/2019 01/30/2024 documented as of this encounter Care Teams Refiner Operator Relationship Specialty Start Date End Date Terence Ring [facility] [place] [address] PCP - General 08/09/20 03/23/23 documented as of this encounter
--- OUTSIDE RECORDS SUMMARY | 2024-02-23 19:00 | XMS_ITS | Encounter Summary ---
Author Organization [facility] Address [address] [place] [address] Care Team Providers Care National Business Director Name Role Phone Terence Ring Primary Care Provider [phone] Reason for Visit * Reason Onset Date Comments HCN - Patient Message 09/22/2021 Encounter Details Date Type Department Care Team (Late st Contact Info) Description 09/22/2021 Telephone PFE SCHEDULING [address] [place] [address] Divya Conrad, DO [address] [facility] [address] [place] [address] HCN - Patient Message Social History Tobacco Use Types Packs/Day Years [...] encounter Miscellaneous Notes * Telephone Encounter - Malini Webb - 09/23/2021 4:49 PM EDT Returned patient call, therapy order sent to [facility] on 09/22/21. No further needs at this time. * Telephone Encounter - Douglas Hendrickson - 09/23/2021 9:55 AM EDT Patient Phone Message Reason for Call: patient returned call, asks to be reached at [phone] Best contact number and optimal time of day to reach caller: [phone] Note: Please do not reply to this message. Follow-up communication and further actions as a result of this message need to be communicated with the patient directly, if the patient is not active onMyChart. If the patient is active on MyChart, they will receive notification of the communication/outcome via MyChart. * Telephone Encounter - Malini Webb - 09/22/2021 4:51 PM EDT Returned patient call, left VM, will await return call. * Telephone Encounter - July Juarez - 09/22/2021 1:12 PM EDT Patient Phone Message Reason for Call: Tre pt is requesting call back to discuss PT/OT at [facility] Best contact number and optimal time of day to reach caller: [phone] Note: Please do not reply to this [...] Description 03/07/2024 1:40 PM EST Office Visit [facility] [place] [address], [address] [place] [address] Naeem Blunt MD [address] [place] [address] documented as of this encounter Visit Diagnoses Not on filedocumented in this encounter Additional Health Concerns Infection Onset Date Last Indicated Resolved Time MRSA Comment:Positive blood culture 03/03/2019 01/30/2024 documented as of this encounter Care Teams National Business Director Relationship Specialty Start Date End Date Terence Ring [address] [place], [place] [address] [id number] PCP - General 08/09/20 03/23/23 documented as of this encounter
--- OUTSIDE RECORDS SUMMARY | 2024-02-23 19:00 | XMS_ITS | Encounter Summary ---
Author Organization [facility] Address [address] [place] [address] Care Team Providers Care Occupational Hygienist Name Role Phone Terence Ring Primary Care Provider Encounter Details Date Type Department Care Team (Latest Contact Info) Description 04/10/2022 Travel Social History Tobacco Use Types Packs/Day [...] suspected to have Coronavirus/COVID-19? No / Unsure 04/10/2022 8:54 AM EST documented as of this encounter Plan of Treatment Upcoming Encounters Date Type Department Care Team (Late st Contact Info) Description 03/07/2024 1:40 PM EST Office Visit [facility] [place] [address], [address] [place] [address] Naeem Blunt MD [address] [place] [address] documented as of this encounter Visit Diagnoses Not on filedocumented in this encounter Additional Health Concerns Infection Onset Date Last Indicated Resolved Time MRSA Comment:Positive blood culture 03/03/2019 01/30/2024 documented as of this encounter Care Teams Occupational Hygienist Relationship Specialty Start Date End Date Terence Ring [facility] [place] [address] PCP - General 08/09/20 03/23/23 documented as of this encounter
--- OUTSIDE RECORDS SUMMARY | 2024-02-23 19:00 | XMS_ITS | Encounter Summary ---
Author Organization Healthcare Address [address] [place] [address] Care Team Providers Care Rn Traveling Name Role Phone Terence Ring Primary Care Provider [phone] Encounter Details Date Type Department Care Team ([facility] Contact Info) Description 03/11/2022 Plan of Care Documentation [facility] Outpatient Therapy [address] [place] [address] Social History Tobacco Use Types [...] Description 03/07/2024 1:40 PM EST Office Visit [facility] [place] [address], [address] [place] [address] Naeem Blunt MD [address] [place] [address] documented as of this encounter Visit Diagnoses Not on filedocumented in this encounter Additional Health Concerns Infection Onset Date Last Indicated Resolved Time MRSA Comment:Positive blood culture 03/03/2019 01/30/2024 documented as of this encounter Care Teams Rn Traveling Relationship Specialty Start Date End Date Terence Ring [facility] [place] [place] [id number] PCP - General 08/09/20 03/23/23 documented as of this encounter
--- OUTSIDE RECORDS SUMMARY | 2024-02-23 19:00 | XMS_ITS | Encounter Summary ---
Author Organization [facility] Address [address] [place] [address] Care Team Providers Care Project Controller Name Role Phone Terence Ring Primary Care Provider [phone] Encounter Details Date Type Department Care Team (Latest Contact Info) Description 04/22/2022 Travel Social History Tobacco Use Types Packs/Day [...] Description 03/07/2024 1:40 PM EST Office Visit [facility] [place] [address] [facility] [address] [facility], [address] [place] [address] Naeem Blunt MD [address] [place] [address] documented as of this encounter Visit Diagnoses Not on filedocumented in this encounter Additional Health Concerns Infection Onset Date Last Indicated Resolved Time MRSA Comment:Positive blood culture 03/03/2019 01/30/2024 documented as of this encounter Care Teams Project Controller Relationship Specialty Start Date End Date Terence Ring [facility] [place] [address] PCP - General 08/09/20 03/23/23 documented as of this encounter
--- OUTSIDE RECORDS SUMMARY | 2024-02-23 19:00 | XMS_ITS | Encounter Summary ---
Author Organization [facility] Address [address] [place] [address] Care Team Providers Care Roads Supervisor Name Role Phone Terence Ring Primary Care Provider [phone] Encounter Details Date Type Department Care Team (Latest Contact Info) Description 05/20/2022 Travel Social History Tobacco Use Types Packs/Day [...] suspected to have Coronavirus/COVID-19? No / Unsure 05/20/2022 9:21 AM EST documented as of this encounter Plan of Treatment Upcoming Encounters Date Type Department Care Team (Late st Contact Info) Description 03/07/2024 1:40 PM EST Office Visit [facility] [place] [address] [facility] [address], [address] [place] [address] Naeem Blunt MD [address] [place] [address] documented as of this encounter Visit Diagnoses Not on filedocumented in this encounter Additional Health Concerns Infection Onset Date Last Indicated Resolved Time MRSA Comment:Positive blood culture 03/03/2019 01/30/2024 documented as of this encounter Care Teams Roads Supervisor Relationship Specialty Start Date End Date Terence Ring [facility] [address] [place] [place] [address] PCP - General 08/09/20 03/23/23 documented as of this encounter
--- OUTSIDE RECORDS SUMMARY | 2024-02-23 19:00 | XMS_ITS | Encounter Summary ---
Author Organization [facility] Address [address] [place] [address] Care Team Providers Care Celery Tier Name Role Phone Terence Ring Primary Care Provider [phone] Encounter Details Date Type Department Care Team (Latest Contact Info) Description 05/29/2022 Travel Social History Tobacco Use Types Packs/Day [...] Description 03/07/2024 1:40 PM EST Office Visit [facility] [place] [address], [address] [place] [address] Naeem Blunt MD [address] [place] [address] documented as of this encounter Visit Diagnoses Not on filedocumented in this encounter Additional Health Concerns Infection Onset Date Last Indicated Resolved Time MRSA Comment:Positive blood culture 03/03/2019 01/30/2024 documented as of this encounter Care Teams Celery Tier Relationship Specialty Start Date End Date Terence Ring [facility] [place] [address] PCP - General 08/09/20 03/23/23 documented as of this encounter
--- OUTSIDE RECORDS SUMMARY | 2024-02-23 19:00 | XMS_ITS | Encounter Summary ---
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) Impaired mobility Ajay Goddard MD [address] [facility] [address] [place] [address] Phone: tel: fax: [facility] Outpatient Therapy [address] [place] [address] Phone: tel: fax: Referral ID Status Reason Start Date Expiration Date V isits Requested Visits Authorized [id number] Closed Specialty Services Required 03/06/2022 10/30/2022 1 44 Encounter Details Date Type Department Care Team (Latest Contact Info) Description 04/10/2022 8:55 AM EST - 04/10/2022 11:59 PM EST Hospital Encounter [facility]patient Therapy [address] [place] [address] Madelyn Ovalles 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 Reports that he didn't sleep well last night. Pain (scale of 0-10): 0/10 OBJECTIVE Procedure/Treatment: Gait training with and without zeroG to improve stance phase on prosthesis and step length for 42 minutes Today's Treatment: 04/10/22 Prosthetic Gait Training with ZeroG: with 8% Body Weight Support and 4 fall control, XL harness with thigh straps. SBQC x3 laps with cues for increased prosthetic stance phase and increased step length on Right. Increasing gait speed with cues for prosthetic swing phase initiation. Patient was able to achieve good swing phase approximately 75% of time. Progressed to ambulation 4 laps with Single Tip Cane to increase weight shift and decrease relianceon assistive device. Patient had intermittent prosthetic control and 1 LOB with self-correct. Able to achieve good consistent step length and swing phase approximately 50%. Prosthetic Gait Training: Patient ambulated 75' with Single Tip Cane and Contact Guard Assist with wheelchair follow, working on increasing Left weight shift and Right step length, rolling off prosthetic toe to initiate swing phase, and heel strike to initiate prosthetic knee extension. Patient hadno LOB's with Min Assist. Modalities: None Education Performed: ZeroG use and safety Importance of gait mechanics and decreasing upper extremity support with single tip cane for transitioning to no assistive device. Increased muscle soreness and fatigue after therapy sessions due to increased postural and gluteal muscle activation with decreased upper extremity support while walking. Safety on therapy days when patient is fatigued. Also noted that patient may not be fatigued, but may have muscular fatigue after therapy session that can put patient at a risk for falling. ASSESSMENT Mr. Xavi puri significantly improved single tip cane after zeroG training. Able to ambulate without zero-G with Single Tip Cane for the first time. Patient demos quality gait mechanics. Discussed that patient is not ready to begin using single tip cane at home, but is working towards transitioning to single tip cane. PLAN Mr. Hurley would benefit from continued gait training with ZeroG with focus on consistent Right Steplength, Left stance and swing phases. Continue to work with single tip cane for less restrictive assistive device and progression towards no assistive device. 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
--- OUTSIDE RECORDS SUMMARY | 2024-02-23 19:00 | XMS_ITS | Encounter Summary ---
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) Impaired mobility Ajay Goddard MD [address] [facility] [address] [place] [address] Phone: tel: fax: [facility] Outpatient Therapy [address] [place] [address] Phone: tel: fax: Referral ID Status Reason Start Date Expiration Date V isits Requested Visits Authorized [id number] Closed Specialty Services Required 03/06/2022 10/30/2022 1 44 Encounter Details Date Type Department Care Team (Latest Contact Info) Description 04/03/2022 9:30 AM EST - 04/03/2022 11:59 PM EST Hospital Encounter [facility] Outpatient Therapy [address] [place] [address] Madelyn Ovalles Above knee amputation [...] suspected to have Coronavirus/COVID-19? No / Unsure 04/03/2022 8:41 AM EST documented as of this encounter Medications at Time of Discharge insulin detemir (Levemir) 100 UNIT/ML injection pen Inject 7-8 Units under the skin every night. 06/12/2020 02/04/2024 documented as of this encounter Miscellaneous Notes * Progress Notes - Madelyn Ovalles - 04/03/2022 9:30 AM EST [facility] Daily Note Name: Buzz Hurley : 1965 Diagnosis: L transfemoral amputation Time In: 9:30 Time Out: 10:17 SUBJECTIVE Patient reports that he is doing well using his LBQC at home. I didn't get home until 2. Pain (scale of 0-10): 0/10 OBJECTIVE Procedure/Treatment: Gait training with zeroG to improve stance phase on prosthesis and step length for 42 minutes Today's Treatment: 04/03/22 Prosthetic Gait Training w/ ZeroG: with 10% Body Weight Support and 4 fall control, XL harness with thigh straps. LBQC [id number] with cues for increased prosthetic stance phase and increased step length on Right. Increasing gait speed with cues for prosthetic swing phase initiation. Patient was able to achieve good swing phase approximately 75% of time. Progressed to ambulation 2 laps with Single Tip Cane and free walk to increase weight shift and decrease reliance on assistive device. Patient had improved prosthetic control and 2 LOBs with self correct, no fall indicated. Performed 1 more lap with cues for smaller step length left and bigger steplength right for improved step continuity and swing phase. Patient had 1 episode of toe drag causing fall with zero-G assist to recover. Prosthetic Gait Training: Patient ambulated 125', 90', and 85' with LBQC and CGA working on increasing Left stance phase and Right step length, rolling off prosthetic toe to initiate swing phase, andheel strike to initiate prosthetic knee extension. Patient had 3 LOB's with Min A to correct as he fatigues. Patient's prosthesis is lose towards end of session and moves into External Rotation at heel strike. Patient does not have any socks available. He tightens prosthesis with dial tightening system, but unable to achieve complete fit. Modalities: None Education Performed: ZeroG use and safety Importance of gait mechanics and decreasing upper extremity support with single tip cane for transitioning to no assistive device. Increased muscle soreness and fatigue after therapy sessions due to increased postural and gluteal muscle activation with decreased upper extremity support while walking. Safety on therapy days when patient is fatigued. Sock management as patient is walking more, he may need to add socks with activitity for improved fit. ASSESSMENT Mr. Xavi guerreroos significantly improved swing phase and initial heel strike with LBQC and single tipcane with prosthetic gait training on ZeroG, achieving good prosthetic swing phase approximately 75% of time with best episode. Pt did not complain of any low back pain or soreness today, however does report fatigue. At end of session, patient ambulated with LBQC with good swing phase and heel strik e approximately 30% of the time. Patient is very fatigued by end of treatment session. PLAN Mr. Hurley would benefit from continued gait training with ZeroG with focus on consistent Right Steplength, Left stance and swing phases. Continue to work with single tip cane for less restrictive assistive device and progression towards no assistive device. ADDENDUM: After treatment session, patient was ambulating in waiting room independently with rolling walker and fell. Patient reports that his prosthesis twisted and caused him to trip. Patient was assisted towting room chair. Denies any injury other than a sore shoulder. I haven't fallen in a long time. Patient was advised to watch his shoulder for swelling or bruising. Patient was advised to seek further medical care if swelling, bruising, and/or decreased ability to move occurs. 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
--- OUTSIDE RECORDS SUMMARY | 2024-02-23 19:00 | XMS_ITS | Encounter Summary ---
Author Organization [facility] Address [address] [place] [address] Care Team Providers Care Cigarette And Filter Chief Inspector Name Role Phone Terence Ring Primary Care Provider Encounter Details Date Type Department Care Team (Late Contact Info) Description 09/22/2021 Orders Only [place] [address] [place] [address] Ajay Goddard MD [address] [facility] [address] [place] [address] Left above-knee amputee (CMS/HCC) (Primary Dx); Impaired mobility Social History Tobacco Use Types Packs/Day Years [...] Description 03/07/2024 1:40 PM EST Office Visit [facility] [place] [address], [address] [place] [address] Naeem Blunt MD [address] [place] [address] documented as of this encounter Visit Diagnoses Diagnosis Left above-knee amputee (CMS/HCC)- Primary Impaired mobility Other ill-defined conditions documented in this encounter Additional Health Concerns Infection Onset Date Last Indicated Resolved Time MRSA Comment:Positive blood culture 03/03/2019 01/30/2024 documented as of this encounter Care Teams Cigarette And Filter Chief Inspector Relationship Specialty Start Date End Date Terence Ring [facility] [employer] [place] [id number] PCP - General 08/09/20 03/23/23 documented as of this encounter
--- OUTSIDE RECORDS SUMMARY | 2024-02-23 19:00 | XMS_ITS | Encounter Summary ---
Author Organization Healthcare Address [address] [place] [address] Care Team Providers Care Shuttler Name Role Phone Terence Ring Primary Care Provider [phone] Encounter Details Date Type Department Care Team ([facility] Contact Info) Description 04/17/2022 Plan of Care Documentation [facility] Outpatient Therapy [address] [place] [address] Social History Tobacco Use Types [...] Description 03/07/2024 1:40 PM EST Office Visit [facility] [place] [address] [facility], [address] [place] [address] Naeem Blunt MD [address] [place] [address] documented as of this encounter Visit Diagnoses Not on filedocumented in this encounter Additional Health Concerns Infection Onset Date Last Indicated Resolved Time MRSA Comment:Positive blood culture 03/03/2019 01/30/2024 documented as of this encounter Care Teams Shuttler Relationship Specialty Start Date End Date Terence Ring [facility] [employer] [place] [id number] PCP - General 08/09/20 03/23/23 documented as of this encounter
--- OUTSIDE RECORDS SUMMARY | 2024-02-23 19:00 | XMS_ITS | Encounter Summary ---
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) Impaired mobility Ajay Goddard MD [address] [facility] [address] [place] [address] Phone: tel: fax: [facility] Outpatient Therapy [address] [place] [address] Phone: tel: fax: Referral ID Status Reason Start Date Expiration Date V isits Requested Visits Authorized [id number] Closed Specialty Services Required 03/06/2022 10/30/2022 1 44 Encounter Details Date Type Department Care Team (Latest Contact Info) Description 05/20/2022 9:22 AM EST - 05/20/2022 11:59 PM EST Hospital Encounter [facility] Outpatient Therapy [address] [place] [address] Madelyn Ovalles Acquired absence of [...] * Progress Notes - Madelyn Ovalles - 05/20/2022 9:45 AM EST [facility] Daily Note Name: Buzz Hurley : 1965 Diagnosis: L transfemoral amputation Time In: 9:30 Time Out: 10:18 SUBJECTIVE Patient reports that he is tired today. Reports that he didn't sleep well last night. Pain (scale of 0-10): 0/10 OBJECTIVE Procedure/Treatment: Therapeutic Activities: Refer to exercise flowsheet. 12 minutes. Gait training with and without zeroG to improve stance phase on prosthesis and step length for 36 minutes Today's Treatment: 05/20/22 Prosthetic Gait Training with ZeroG: with 25% Body Weight Support and 4 fall control, XL harness with thigh straps. Ambulation without assistive device: cues for weight shift and Right step length. 30'x4 - 6 episodes of balance loss, 3 with fall recovery assist - mostly when pivot turning at end of walkway. Side Steps 2x15' each, no AD. 4 LOB's with 1 fall recovery assist Therapeutic Activity with ZeroG: with 25% Body Weight Support and 4 fall control. Sit<>Stand with out assistive device followed by stand pivot transfer to perpendicular chair x5 reps each direction. Occasional anterior loss of balance, though no fall assist recovery necessary.. Prosthetic Gait Training: (not performed) Patient ambulated 75' with Single Tip Cane and Contact Guard Assist with wheelchair follow, working on increasing Left weight shift and Right step length, rolling off prosthetic toe to initiate swing phase, and heel strike to initiate prosthetic knee extension. Patient had no LOB's with Min Assist. Modalities: None Education [...] without assistive device in ZeroG today at 25% body weight support. Patient demos improved quality of gait mechanics, though occasionally needs to stop and regain balance before re-starting appropriate mechanics. Patient had significant difficulty with sit <>stands and turning at end of walkway without assistive device. Practiced sit<>stands and stand pivots with ZeroG at 25% body weight support, trolley in line with feet for gentle anterior assist. PLAN Mr. Hurley would benefit from continued gait training with ZeroG with focus on consistent Right Steplength, Left stance and swing phases. Continue to work with elevated body weight support to improvemechanics without assistive device, then slowly decrease body weight support as tolerated. 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
--- OUTSIDE RECORDS SUMMARY | 2024-02-23 19:00 | XMS_ITS | Encounter Summary ---
Author Organization [facility] Address [address] [place] [address] Care Team Providers Care Public Health Aides Teacher Name Role Phone Terence Ring Primary Care Provider [phone] Encounter Details Date Type Department Care Team (Latest Contact Info) Description 04/03/2022 Travel Social History Tobacco Use Types Packs/Day [...] Description 03/07/2024 1:40 PM EST Office Visit [facility] [place] [address] [facility], [address] [place] [address] Naeem Blunt MD [address] [place] [address] documented as of this encounter Visit Diagnoses Not on filedocumented in this encounter Additional Health Concerns Infection Onset Date Last Indicated Resolved Time MRSA Comment:Positive blood culture 03/03/2019 01/30/2024 documented as of this encounter Care Teams Public Health Aides Teacher Relationship Specialty Start Date End Date Terence Ring [facility] [place] [address] PCP - General 08/09/20 03/23/23 documented as of this encounter
--- OUTSIDE RECORDS SUMMARY | 2024-02-23 19:00 | XMS_ITS | Encounter Summary ---
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) Impaired mobility Ajay Goddard MD [address] [facility] [address] [place] [address] Phone: tel: fax: [facility] [address] [place] [address] Phone: tel: fax: Referral ID Status Reason Start Date Expiration Date V isits Requested Visits Authorized [id number] Closed Specialty Services Required 03/06/2022 10/30/2022 1 44 Encounter Details Date Type Department Care Team (Latest Contact Info) Description 04/01/2022 8:57 AM EST - 04/01/2022 11:59 PM EST Hospital Encounter [facility] [address] [place] [address] Madelyn Ovalles Above knee amputation [...] encounter Miscellaneous Notes * Progress Notes - OvallesMaryMadelyn - 04/01/2022 9:30 AM EST [facility] Orthopedic Rehabilitation Daily Note Name: Buzz Hurley : 1965 Diagnosis: L transfemoral amputation Time In: 9:24 Time Out: 10:17 SUBJECTIVE Patient reports that he has not fallen since his last appointment. He reports that he has ordered Swell no More from [email or web address]. It's a medicine that is guaranteed to take the swelling down. Pain (scale of 0-10): 0/10 OBJECTIVE Procedure/Treatment: Gait training with zeroG to improve stance phase on prosthesis and step length for 54 minutes Today's Treatment: 04/01/22 Prosthetic Gait Training w/ ZeroG: with 10% Body Weight Support and 4 fall control, XL harness with thigh straps. LBQC x4 laps with cues for increased prosthetic stance phase and increased step length on Right. Increasing gait speed with cues for prosthetic swing phase initiation. Patient was able to achieve good swing phase approximately 25% of time. Patient was fatigued on last lap and had 4 falls indicated. LBQC x2 laps with facilitation engaged at Level 2 to assist with gait speed and mechanics. Patient achieved good swing phase approximately 75% of time. Patient was also intiating 2 point gait withoutcues from therapist. Progressed to ambulation 1 lap with Single Tip Cane and free walk to increase weight shift and decrease reliance on assistive device. Patient had improved prosthetic control and 1 fall indicated. Performed standing step taps pre-gait exercises with Single Tip Cane for progressing weight shift and stance time. Performed with limited track of 12 inches for safety. Patient needed 4 seated rest breaks due [...] with decreased upper extremity support while walking. ASSESSMENT Mr. Xavi puri significantly improved swing phase and initial heel strike with single tip cane with prosthetic gait training on ZeroG, achieving good prosthetic swing phase approximately 75% of timewith best episode. Pt did not complain of any low back pain or soreness today, however does report fatigue. Pt khushi improved upright posture and hip extension after treatment session while walking with Rolling Walker. PLAN Mr. 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
--- OUTSIDE RECORDS SUMMARY | 2024-02-23 19:00 | XMS_ITS | Encounter Summary ---
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) Impaired mobility Ajay Goddard MD [address] [facility] [address] [place] [address] Phone: tel: fax: [facility] Outpatient Therapy [address] [place] [address] Phone: tel: fax: Referral ID Status Reason Start Date Expiration Date V isits Requested Visits Authorized [id number] Closed Specialty Services Required 03/06/2022 10/30/2022 1 44 Encounter Details Date Type Department Care Team (Latest Contact Info) Description 04/08/2022 9:30 AM EST - 04/08/2022 11:59 PM EST Hospital Encounter [facility] Outpatient Therapy [address] [place] [address] Madelyn Ovalles Above knee amputation [...] Recorded In the last 10 days, have gracy u been in contact with someone who was confirmed or suspected to have Coronavirus/COVID-19? No / Unsure 04/08/2022 9:45 AM EST documented as of this encounter Medications at Time of Discharge insulin detemir (Levemir) 100 UNIT/ML injection pen Inject 7-8 Units under the skin every night. 06/12/2020 02/04/2024 documented as of this encounter Miscellaneous Notes * Progress Notes - Madelyn Ovalles - 04/08/2022 9:30 AM EST [facility] Orthopedic Rehabilitation Daily Note Name: Buzz Hurley : 1965 Diagnosis: L transfemoral amputation Time In: 9:32 Time Out: 10:17 SUBJECTIVE Patient reports that he is doing well using his LBQC at home. You'd think they'd fix it so that itwould work better. Pain (scale of 0-10): 0/10 OBJECTIVE Procedure/Treatment: Gait training with and without zeroG to improve stance phase on prosthesis and step length for 42 minutes Today's Treatment: 04/08/22 Prosthetic Gait Training with ZeroG: with 8% Body Weight Support and 4 fall control, XL harness with thigh straps. LBQC x4 laps with cues for increased prosthetic stance phase and increased step length on Right. Increasing gait speed with cues for prosthetic swing phase initiation. Patient was able to achieve good swing phase approximately 50% of time. Progressed to ambulation 2 laps with Single Tip Cane to increase weight shift and decrease relianceon assistive device. Patient had intermittent prosthetic control and 3 LOBs; 1 with self correct, and 2 with zero-g fall recovery assist. Prosthetic Gait Training: Patient ambulated 125' and 85' with LBQC and Min Assist working on increasing Left stance phase and Right step length, rolling off prosthetic toe to initiate swing phase, and heel strike to initiate prosthetic knee extension. Patient had 2 LOB's with Min A to correct as he fatigues. Modalities: None Education Performed: ZeroG use and [...] a risk for falling. ASSESSMENT Mr. Xavi guerreroos significantly improved swing phase and initial heel strike with LBQC and single tipcane with prosthetic gait training on ZeroG, achieving good prosthetic swing phase approximately 50% of time with best episode. Pt did not complain of any low back pain or soreness today, however does report fatigue. At end of session, patient ambulated with LBQC with good swing phase and heel strik e approximately 50% of the time. Patient is very fatigued [...] Description 03/07/2024 1:40 PM EST Office Visit [facility] [place] [address] 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
--- OUTSIDE RECORDS SUMMARY | 2024-02-23 19:00 | XMS_ITS | Encounter Summary ---
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) Impaired mobility Ajay Goddard MD [address] [facility] [address] [place] [address] Phone: tel: fax: [facility] Outpatient Therapy [address] [place] [address] Phone: tel: fax: Referral ID Status Reason Start Date Expiration Date V isits Requested Visits Authorized [id number] Closed Specialty Services Required 03/06/2022 10/30/2022 1 44 Encounter Details Date Type Department Care Team (Latest Contact Info) Description 06/03/2022 9:23 AM EST - 06/03/2022 11:59 PM [facility] Hospital Encounter [facility] Outpatient Therapy [address] [place] [address] Madelyn Ovalles Acquired absence of [...] * Progress Notes - Madelyn Ovalles - 06/03/2022 9:45 AM EST [facility] Daily Note Name: Buzz Hurley : 1965 Diagnosis: L transfemoral amputation Time In: 9:30 Time Out: 10:16 SUBJECTIVE Patient reports that he moved to his new apartment this week. There is a slight decline to get out of his apartment that is a bit of a challenge. Pain (scale of 0-10): 0/10 OBJECTIVE Procedure/Treatment: Gait training with and without zeroG to improve stance phase on prosthesis and step length for 46 minutes Today's Treatment: 06/03/22 Prosthetic Gait Training with ZeroG: with 15% Body Weight Support and 4 fall control, L harness with thigh straps. Ambulation without assistive device: cues for weight shift and Right step length. 60'x2 - 3 episodes of balance loss, none with fall recovery assist - mostly when pivot turning at end of walkway. Patient fatigues quickly and needs rest breaks between each rep. As patient fatigues, patient demos significant loss of prosthetic control including taking too big of a step, decreased weight shift, poorknee swing initiation. After resting, abnormal gait mechanics improve. 60'x4 with 10% body weight support, decreased mechanics maintaining balance however decreased weight shift, and difficulty with swing [...] today at 15% body weight support. Patient yolandaos improved quality of gait mechanics. Trialed 10% bodyweight support with difficulty initially, but improved with repetition and cues. PLAN Mr. 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
--- OUTSIDE RECORDS SUMMARY | 2024-02-23 19:01 | XMS_ITS ---
Author Organization [facility] Address [address] [place] [address] Care Team Providers Care Flux Mixer Name Role Phone Pcp, No Primary Care Provider UnavailCeci Mclean LPN Unavailable Unavailable Transitional Care Management Status:Identified (Enrolling) Start date:02/07/2024 Enrollment reason:Identified using hospital discharge data Overview This episode type is for outpatient care managers enrolling patients in the [facility] Transitional Care Management program. Case Team Name Relationship Phone Ceci Greene LPN TCM Nurse(Responsible Staff) Continued Care and Services Coordination
--- OUTSIDE RECORDS SUMMARY | 2024-02-23 19:01 | XMS_ITS | Encounter Summary ---
Author Organization [facility] Address [address] [place] [address] Care Team Providers Care Packaging Clerk Name Role Phone Unavailable Primary Care Provider Unavailabl e Encounter Details Date Type Department Care Team (Latest Contact Info) Description 03/02/2019 1:28 PM EST - 03/10/2019 3:05 PM EST Hospital Encounter PAV A Inpatient [address] [place] [address] Ilan Hickey MD Internal Medicine-Hospita lists [address] [facility], [facility] Sepsis due to methicillin resistant Staphylococcus aureus ([facility]) Social History Tobacco Use Types Packs/Day Years Used Date Smoking Tobacco: Never Assessed Sex and Gender Information Value Date Recorded Sex Assigned at Not on file Legal Sex Male 8:15 PM EDT Gender Identity Not on file Sexual Orientation Not on file documented as of this encounter Miscellaneous Notes * Social Care Assessment Summary - ProviderRobinson MD - 03/10/2019 12:00 AM EST Patient Name: Saul HURLEY Date of : 1965 Discharge Note Discharge Note Who Will Provide Assistance Post-Discharge? Answers: Facility How Many Hours is/are the Caregiver(s) Available? Answers: 24 Hours Discharge Disposition Answers: Acute Rehab [facility] tel> [phone] (RN REPORT) fax> [phone] ( d/c summary faxed) Is Home Health Needed? If Yes, Specify Agency Name and Service Needed. Answers: No Is DME Needed? If Yes, Select Type of Equipment Needed and DME Company. Answers: Wheelchair s/p L AKA patient to d/c via [facility] shuttle and will require w/c for transport. Is Patient Being Discharged with any of the Following? If Yes, Specify Agency and Phone Number. Please Provide Details in Additional Comments Box Below. Answers: PICC placed today for IV ABX vancomycin 1000 milligram(s) intravenous every 12 hours through 03/19/19. I Certify that the Patient has been Provided with a Choice for DME, Home Health, Infusion Services and Facility. Answers: Yes Is This a High-Risk LACE Patient? Answers: No Follow Up Appointments Scheduled? Answers: Yes PAC to schedule [facility] f/u. [facility] to schedule PCP f/u. Does the Patient Have Transportation to Follow up Appointments? Answers: Yes Scholarship? Answers: No WES? Answers: No Medicare Second Notice? Answers: Not applicable Were Services Declined? Answers: No Additional Comments: Notes: poc reviewed with team and patient is medically ready for d/c to [facility]. PT/OT/ PMR rec acute rehab. CM met with patient and he was agreeable to poc. PICC line placement for vancomycin 1000 milligram(s) intravenous every 12 hours through 03/19/19. Patient to d/c to via shuttle at 3:15 pm. No further follow at this time. I certify that the opportunity to review post-acute care facilities/agencies efficiency and quality data was provided to patient/family/legal medical representative. Answers: Yes Electronically signed by: Dara Barraza * Discharge Summary - Ilan Hickey - 03/10/2019 12:00 AM EST HOSPITALIZATION: Admit Date:02-Mar-2019 Discharge Date:10-Mar-2019 Discharge Atttending Ilan Barnes MD Admitting DiagnosisCellulitis DISCHARGE DIAGNOSIS: Diabetes mellitus: Amputation of lower extremity: Diabetic foot infection: MRSA bacteremia: Cellulitis: Reason for Hospitalization 03/02/2019 History of Present Illness: 53yo male with history of uncontrolled IDDM with peripheral neuropathy,CAD, COPD, CHF, ME, s/p PCI x 2 and HTN who presents with LLE cellulitis. Pt reports noticing redness near his left ankle approximately 2 months ago. This has now extended to his knee. He also has severe left leg pain that has prohibited him from bearing weight. He has been taking his home Lyrica without any improvement. After he felt feverish and developed chills last night, he decided to call EMS today. In the ED, routine labs showed a wbc of 26K. Pt slightly tachycardic with HR 107. On exam, he has extensive cellulitis of LLE from ankle to knee with scaling of the skin. Sensation also decreased in LLE. Pulses present, but diminished. Skin warm to touch. Additional imaging ordered (CT LLE, CTA A/Pw runoff, Tib/fib XR and JAILYN's). Vascular and Endocrine consulted. Pt is being admitted to Medicinefor further care. HOSPITAL COURSE: Hospital Course # Diabetic foot Cellulitis with complicated MRSA abscess & Bacteremia with muscle inovolvement. # SP above knee amputation 03/08/19 PLAN: Cont VAncomycin 2 weeks from 03/06/19 PICC line done Use Lyrica for neuropathic pain. Need close FU with innovation manager for right foot care. # Uncontrolled insulin dependent DMII. - A1c 16. - Discharged on 01/05/10 + SSI. - CCD - FU display maker Improved Issues MRSA sepsis & bacteremia on VAncomycin for now cont to moniotr CBC/BMP weekly while on antibitics Chronic issues: - CHF: EF unknown; compensated at this time - COPD: stable; PRN albuterol MDI - Tobacco dependence: NRT, counseled on cessation Full code Diabetic diet Acute rehab FU vascular FU endocirnology FU [employer] FU PCP/PM&R DIAGNOSTIC AND PROCEDURAL EVENTS: - AKA PHYSICAL EXAMINATION: - Subjective Seen & examined at bedside Left leg pain & soreness 05/08 no drainage ROS: Gen: no fever or chills. CV: no CP, no orthopnea Physical Exam VITALS (last 24h) [retrieved for ROBERT HURLEY at 10 Mar 2019 13:11]: Tc: 37.0 Tmax: 37.0 @ Feb 20:00 Tf: 98.6 Tmax: 98.6 @ Feb 20:00 HR: 89 (89 - 89) BP: 116/82 (116/82 - 116/82) FSB (93 - 172) RR: 18 (18 - 18) SpO2: 96% (96% - 96%) GENERAL : emaciated male laying on bed appears comfortable. conversive & cooperative. SKIN : LLE Above knee amputation Extensive scaling & pressure damage right big toe ENMT : intact, mucous membranes moist, no apparent injury. HEAD/NECK : neck supple, no apparent injury. RESPIRATORY/THORAX : airway patent, breath sounds equal and respirations non-labored. CARDIOVASCULAR : regular rate, regular rhythm and normal S1 and S2. GASTROINTESTINAL : bowel sounds normal, soft, non-tender. MUSCULOSKELETAL : no joint swelling. EXTREMITIES : LLE cellulitis as above. Decreased sensation to LLE. NEUROLOGICAL : alert and oriented x 4, interactive and normal tone. Decreased sensation to LLE. PT and DP pulses present in LLE but diminished. PSYCHOLOGICAL : appropriate mood and behavior. Suicide Screening: Discharge Suicide Screen: Has this patient had a low, moderate or high suicide severity documented during their hospital stay? Yes. While you were in the hospital, have you wished you were or wished you could go to sleep and not wake up? No. While you were in the hospital, have you had any actual thoughts of killing yourself? No. Have you been thinking about how you might kill yourself? No. Have you had these thoughts and had some intention of acting on them or do you have some intention of active on them after you leave the hospital? No. Have you started to work out or worked out the details of how to kill yourself either for while youwere here in the hospital or for after you leave the hospital? Do you intend to carry out this plan? No. While you were here in the hospital, have you done anything, started to do anything, or prepared todo anything to end your life? No. [facility] Dis[facility] Conditionstable (signs or symptoms of potential problems absent or manageable) Discharge MedicationsFinal Medication List for Discharge Summary Discharge Medicationsacetaminophen 325 mg oral tablet 2 tab(s) orally every 4 hours, As needed, Pain; use first. Give with NSAIDs if available. aspirin 81 mg oral tablet, chewable 1 tab(s) orally once a day emollients, topical lotion 1 application topically 3 times a day insulin glargine 100 units/mL subcutaneous solution 25 unit(s) subcutaneous once a day insulin lispro 100 units/mL injectable solution 1 unit(s) subcutaneous 3 times a day (after meals),As Needed ; 2 units if FSBS 150 - 199 4 units if FSBS 200 - 249 6 units if FSBS 250 - 299 8 units if FSBS 300 - 349 10 units if FSBS 350 - 399 Call Physician for units if FSBS greater than 400 insulin lispro 100 units/mL injectable solution 10 unit(s) subcutaneous 3 times a day (after meals) oxyCODONE 5 mg oral tablet 1 tab(s) orally every 4 hours, As needed, Pain unresponsive to other medications/interventions. Hold for sedation. polyethylene glycol 3350 oral powder for reconstitution 17 gram(s) orally once a day pregabalin 150 mg oral capsule 1 cap(s) orally 2 times a day sennosides-docusate 8.6 mg-50 mg oral tablet 1 tab(s) orally 2 times a day Therapeutic Multiple Vitamins with Minerals oral tablet 1 tab(s) orally once a day vancomycin 1000 milligram(s) intravenous every 12 hours through 03/19/19. Last vancomycin trough 11micrograms/mL on 03/06/19 and AUC 425. Pending ResultsNo Pending Results DISCHARGE INSTRUCTIONS: Diet: Follow the Healthy Heart Diet (See instructions in your patient education handouts). Work towards or maintain a healthy weight. Lifting: No Restrictions. Activity: move around as you are able. Wound or Incision Care: Reason to call: feels warm or hot to the touch, is red or dark pink, is tight or swollen and looks shiny, becomes more tender or sore to the touch, wound smells bad and wound is draining pus, bleeding or coming open. Instructed patient to call if: Temperature is above 100.4. Medication Instructions: Take Medication exactly as instructed. Do not take any medications that have not been ordered for This means do not take other people's medication, illegal drugs or substances, or even more aspirin than has been ordered. Recommended Follow Up Instructions: Follow Up Instructions: Follow up with: [facility] vascular [facility]. Follow up with: Senior Accounting Specialist/DM. Follow up with: [employer]. Follow up with: PCP. ATTESTATION STATEMENTS: Attending Billing: I spent >30 minutes of patient care and instruction time in preparation for this discharge. Electronic Signatures: Ilan Hickey MD (Attending) (Signed 10-Mar-19 13:12) Authored: HOSPITALIZATION, DISCHARGE DIAGNOSIS, HOSPITAL COURSE, DIAGNOSTIC AND PROCEDURAL EVENTS, PHYSICAL EXAMINATION, Suicide Screening, DISCHARGE INFORMATION, DISCHARGE INSTRUCTIONS, Recommended Follow Up Instructions, ATTESTATION STATEMENTS Last Updated: 10-Mar-19 13:12 by Ilan Hickey MD (Attending) * Procedures - Macie Chandler - 03/10/2019 12:00 AM EST PICC Insertion: PICC Insertion Location: Bedside. This PICC procedure was performed by Macie Chandler APRN on 10-Mar-2019 11:42. Indications for this procedure included residential antibiotics. Risks, benefits and alternatives to the procedure have been discussed and informed consent was obtained from the patient. Hand hygiene performed. The site was prepped with chlorhexidine under sterile conditions. The patient was covered with a full-body, fenestrated drape. The clinicians performing this procedure donned a hat, mask, sterile gown and sterile gloves. Ultrasound with sterile sleeve was used during procedure to identify pertinent landmarks.. Local anesthesia with 1% Lidocaine was used. The procedure was performed in the left basilic vein. A CT compatible single lumen 4 lithuanian BARD-Solo catheter was used. Catheter lot number: [id number]. The catheter was trimmed at 50 cm and was threaded 50 cm without difficulty to place the tip in theSVC. There are 50 cm of catheter indwelling and 0 cm of catheter outside of the patient. Modified Seldinger Technique was used. The catheter draws blood and flushes easily. Each lumen was flushed with 10 ml NS. Sterile access caps were placed on each lumen. Catheter secured with adhesive securementdevice. Antimicrobial disk was placed around catheter at insertion site and covered with transparent, occlusive dressing. Insertion site covered with Tegaderm. The procedure required 1 attempt. Estimated blood loss was 10 ml. The procedure was performed without difficulty. The patient tolerated the procedure well. There were no complications. [employer] to confirm tip placement. Educational materials and specific catheter information were given to the patient. The procedure was performed with an ultrasound machine for identification of relevant anatomic structures, interpretation of the images, and guidance of the procedure.. Moderate Sedation: Vital Signs: Vital SignsPlease reference nursing procedural sedation documentation. Electronic Signatures: Macie Chandler APRN (Nurse Practitioner) (Signed 10-Mar-19 11:43) Authored: Peripherally Inserted Central Catheter, Moderate Sedation Last Updated: 10-Mar-19 11:43 by Macie Chandler APRN (Nurse Practitioner) * Social Care Assessment Summary - Robinson Fields MD - 03/09/2019 12:00 AM EST Patient Name: Saul HURLEY JR Date of : 1965 Progress Note Progress Note Has Discharge Plan Changed? If Yes, Please Describe Change and Provide Details in Additional Comments Box Below. Answers: No Additional Comments Notes: poc reviewed with team and patient is not medically ready for d/c. PT/OT rec acute rehab. PMR consult pending rec. IV Morphine d/c today. PICC line pending for completion of IV ABX w/ stop date 03.19.19. Ambulance to provide transport and will need to be set up. WES to follow home transition. DM education complete. CM to follow. Electronically signed by: Dara Barraza * Consults - Ronald Joel - 03/09/2019 12:00 AM EST Consultation Service: Service/ Team: [facility] - Physical Medicine and Rehab / Rehabilitation Medicine. Requesting Attending Physician: Ilan Hickey MD(Attending): Attending, Medicine - Internal, Medicine Chief Complaint: Requesting ServiceElmalcolm- Reason for ConsultEvaluation for rehabilitation and placement Consult Note: - Physical Medicine and Rehabilitation Patient: ROBERT HURLEY JR : 1965 PCP: Gurinder Valencia Reason for Consultation: Evaluation for rehabilitation potential and placement. Referring Provider: Kimberly History of Present Illness: Patient is a 53 y/o male with a pMHx of uncontrolled IDDM with associated peripheral neuropathy andCAD s/p PCI x2 who presented to [facility] on 03/02 for LLE cellulitis. Extensive chart review of the hospital course and complications revealed the following: The patient reported initial erythema started 2 months ago on his foot that he attempted to treat on his own, however, it continued to extend and at presentation at [facility] extended to his knee. He also reported associated pain which limited his weight bearing and ambulation, but once he became febrile with chills, he elected to go to the ER. Uponadmission, he was found to have a WBC of 26K and met criteria for sepsis. CT of the LLE revealed diffuse myonecrosis involving the posterior lateral muscle compartments below the knee with a CTA showing patent vasculature with a large lobulated abscess around the fibula from the proximal diaphysis extending onto the dorsum of the foot along with blood Cx (+) MRSA. He subsequently went to the OR on 03/05 for I&D of the abscess, but also excisional debridement of left lower leg tissues. The patient would return to the OR on 03/08 for left AKA which the patient tolerated well without immediate post-surgical complications. He has been continued on broad spectrum ABX given his (+) blood Cxs. ENDO is following given the patient *s grossly uncontrolled diabetes. PT/OT consulted along with PM&a mp;R for rehabilitation needs. The patient was seen and evaluated at bedside this morning, seated in bedside recliner. He denies any acute issues at this time. He does report 10/10 residual limb pain with activity and reports phantom sensations, but no phantom pain. On ROS, he reports blurred vision, but adits to having to wear glass which he is currently not wearing. ROS: 14 point review of systems performed and negative unless otherwise noted per HPI PMH: IDDMII with uncontrolled peripheral neuropathy CHF, unknown EF CAD, s/p ME with PCI x 2 approximately 2 years ago HLD HTN COPD PSH: CCY PCI x 2 Allergies: Penicillin->Other Home Medications: [retrieved for ROBERT HURLEY JR at 09 Mar 2019 16:17]: pregabalin 150 mg oral capsule 1 cap(s) orally 2 times a day Active Medications: CONTINUOUS MEDS [retrieved for ROBERT HURLEY JR at 09 Mar 2019 16:17]: Lactated Ringers (no additives) SCHEDULED MEDS [retrieved for ROBERT HURLEY JR at 09 Mar 2019 16:17]: Aspirin 81 MG Oral once a day Docusate 50 mg-Senna 8.6 mg 1 tablet Oral 2 times a day Emollients, topical - lotion 1 application Topical 3 times a day Enoxaparin Inj. (PROPHYLAXIS) 40 MG SubCutaneous once a day Insulin Glargine (LANTUS) Inj. 100 units/mL 25 units SubCutaneous once a day Insulin Lispro (HUMALOG) Inj. 100 units/mL 10 units SubCutaneous 3 times a day (after meals) Multivitamin with minerals Therapeutic Multiple Vitamins with Minerals 1 tablet Oral once a day Phosphate 250 mg/Potassium 45 mg/Sodium 298 mg 250 MG Oral 2 times a day Polyethylene glycol 3350 - powder for reconstitution 17 gram Oral Once a day Pregabalin 150 MG Oral 2 times a day Vancomycin Inj 1000 MG IntraVenous Piggy Back every 12 hours PRN MEDS [retrieved for ROBERT HURLEY JR at 09 Mar 2019 16:17]: Acetaminophen 650 MG Oral every 4 hours Albuterol Inhalation MDI 2 puff Inhalation every 4 hours Dextrose 10% - 25 gm/250 mL (IVPB) 12.5 gram IntraVenous Piggy Back Per Glucose Monitoring Dextrose 10% - 25 gm/250 mL (IVPB) 25 gram IntraVenous Piggy Back Per Glucose Monitoring Glucagon Inj. 1 MG IntraMuscular Per Glucose Monitoring Glucose 40% 1 tube Oral Per Glucose Monitoring Insulin Lispro (HUMALOG) Inj. 100 units/mL (Correction Factor) units SubCutaneous <User Schedule> Insulin Lispro (HUMALOG) Inj. 100 units/mL (Correction Factor) units SubCutaneous 3 times a day (after meals) Ondansetron Disintegrating Tablet 4 MG Oral every 6 hours OxyCODONE 5 MG Oral every 4 hours Family hx: Family history of diabetes, heart disease and HLD. No family history of amputations. Social hx: Marital Status: Children: 3 kids Residence: Lives in [place], [place] in a single level Duplex wit 2 [address]ERSON by himself. 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[employer], but had been working part-time for the past 2-3 months given his LLE issues Education: HS graduate with 1 year of college Hobbies: Fishing, walking DME used prior to rehab: Rollator walker for the ast 2-3 months while being sick Consults: SGR, LUZ, PT/OT Precautions: Fall Procedures: 03/05/19 *I&D of left left abscess, excisional debridement of left lower leg tissue 03/08/19 *Left Above Knee Amputation OBJECTIVE: Data personally reviewed and summarized below: Labs: LABS (last 24h) [retrieved for ROBERT HURLEY JR at 09 Mar 2019 16:17]: 133 99 9 < 275 Ca: 7.5 P: 2.8 M.9 [03/09 @ 04:06] 4.0 27 0.49 WBC: 6.70 / Hb: 8.9 / Hct: 27.7 / Plt: 308 [03/09 @ 04:06] Cultures: Blood Cx (03/06/19): NG, day 3 Abscess Cx (03/05/19): MRSA Blood Cx (03/03/19): (+) MRSA Imaging: JAILYN (03/03/19): IMPRESSION: Right: Normal study. There is no evidence of hemodynamically significant arterial disease at rest. Left: Patient refused segmental pressures. Based on waveform analysis there is no evidence of hemodynamically significant arterial disease at rest. Left Tib/Fib radiographs (03/02/19): IMPRESSION: No acute fracture or dislocation. Questionable minimal periosteal reaction of the lateral distal cortex of the fibula. Edema of the calf, lateral greater than medial. Soft tissue findings can be better evaluated on the already performed CT of the lower extremity. CT LLE (03/02/19): IMPRESSION: Findings most compatible with diffuse myonecrosis involving posterior lateral muscle compartments below the knee, with additional fluid between the fascia. Varicose veins. CTA Abdomen & Pelvis (03/02/19): IMPRESSION: 1. Normal runoff. Lobulated large rim-enhancing abscess around the fibula from the proximal diaphysis extending onto the dorsum of the foot. At the mid calf level the abscess has a maximum dimension of 6.5 cm in the transverse plane. There is associated cellulitis over the lateral aspect of the foreleg. No underlying bone abnormality is appreciated. Venous Duplex LLE (03/02/19): Left: Normal study. No evidence of acute DVT is identified. EKG/rhythm strip: 03/08/19- NSR; QTc: 427ms Current diet: Regular, CC2, Cardiac Diet; thin liquids Functional History: Premorbid: Ambulation: Independent ADL's: Independent Prior Cognitive Status: Independent Prior Physical Level of Activity: Independent Current: Bed Mobility: Decreased ability to use legs for bridging/pushing Transfers: Moderate assistance for bed to chair transfers Ambulation: No tested Basic ADL's: Max A for bathing, Grooming CGA, Eating independently Dressing: Min A for UBD and Mod A LBD CODE STATUS: FULL PHYSICAL EXAM BP 124/89 HR 101 R 15 T 99.0 (37.3) Wt 74.0kg (0.0lbs) General Appearance: NAD, seated in bedside recliner HEENT: NCAT, moist mucous membranes, no scleral icterus Neck: supple, no tracheostomy Cardiovascular: Regular rate, (+) S1/S2, no cyanosis Respiratory: CTAB, normal effort currently on RA Abdomen: soft, non-tender, non-distended, no guarding/rigidity, BS present x 4 quadrants : no becerra/suprapubic catheter Extremities: no cyanosis, no clubbing, no edema. Right residuum wrapped with NARESH. Evidence of intrinsic hand atrophy bilaterally Skin: no breakdown, no pressure ulcers, Significant Xerosis cutis to RLE from the knee extending distally and throughout RUE Neurological: Mental status: alert, oriented to person, place, time; follows commands, good initiation Speech: fluent, no dysarthria, no perseveration Cranial Nerves: PERRLA, EOMI, no facial asymmetry, no tongue deviation Sensory: LT sensation throughout the LLE extending proximally to the knee. Decreased LT sensation of the BUE from the hand extending proximally to the wrist Manual Muscle Testing: Right UE:EF: 5EE: 5WF: 5WE: 5FF: 5FAbd: Left UE:EF: E: WF: 5WE: 5FF: 5FAbd: Right LE:HF: 5KF: 5KE: 5PF: 4 / 5DF: 4 5EHL: 4- / 5 Left LE:HF: 5KF: 4 5 Reflexes: BicepsTricepsBrachioradialisHoffman *s Right UE: / bsent Left UE: / bsent PatellarAnkle Right LE:Trace0 / 4 Left LE:Unable to assess secondary to AK ASSESSMENT/PLAN: 53 y/o male with: Sepsis secondary to LLE cellulitis with myonecrosis and abscess s/p AKA Uncontrolled Type 2 diabetes with associated neuropathy MRSA bacteremia Residuum pain Phantom limb sensations Leukocytosis Hypokalemia Hyponatremia Xerosis cutis COPD Tobacco use disorder CHF Functional decline Impaired ambulation Impaired ADLs Impaired bed mobility/transfers *recommendations not final unless signed by an attending* Recommendations: 1) The patient requires 24-hour availability of a rehabilitation physician to continue the management of acute medical/post-surgical issues, underlying co morbidities, and a rehabilitation plan that necessitates services from physical therapy, occupational therapy and/or speech therapy. The patientwill tolerate > 3 hours of therapy per day, 5 days per week, is expected to make measurable improvement in their functional capacity, and has realistic goals to return to a community based living environment (home, assisted or independent living). The patients post-acute care needs are best met in an Acute Inpatient Rehabilitation Facility (IRF) setting when deemed medically/surgically stable. 2) Recommend Lacy-Hydrin (or equivalent) to RUE and RLE due to significant dry skin 3) Recommend consultation with [facility] to establish connection for future prosthetic care Thank you for allowing us to participate in the care of your patient. Please do not hesitate to call if you have questions [phone]. Keith Pace DO, MS PGY-III, Physical Medicine & Rehabilitation Attending Attestation Statement: I saw and evaluated the patient with the resident/fellow. I discussed the case with the resident/fellow and agree with the findings and plan as documented. Electronic Signatures: Keith Pace DO (Resident) (Signed 09-Mar-19 16:26) Authored: CONSULTATION SERVICE, EVALUATION Ronald Joel DO (Attending) (Signed 10-Mar-19 09:07) Authored: EVALUATION, CRITICAL CARE CHARGING STATEMENT/ATTENDING ATTESTATION Co-Signer: CONSULTATION SERVICE, EVALUATION Last Updated: 10-Mar-19 09:07 by Ronald Joel DO (Attending) * Interim Summary - Robinson Fields MD - 03/08/2019 12:00 AM EST Date: 03/08/19 7:00 am Patient was seen no changes in signs and symptoms, no change in mental status. Patient consented and marked and ready to go to OR for above knee amputation versus below knee amputation for LLE. Electronic Signatures: Xavier Olson (Resident) (Signed on 08-Mar-19 10:33) Authored Last Updated: 08-Mar-19 10:34 by Xavier Oslon (Resident) * Social Care Assessment Summary - Robinson Fields MD - 03/08/2019 12:00 AM EST Pastoral Care Note: Pastoral Care Note: This visit was initiated by the optic fibre drawer in relation to pre-surgery. Additional Comments: Chemical Analyst offered presence and informed patient/family about the 19/10 optic fibre drawer availability. Pastoral Care: Phone [phone], Pager # [phone]. Electronic Signatures: Bud Blood (Chemical Analyst) (Signed 08-Mar-19 08:13) Authored: Pastoral Care Note Last Updated: 08-Mar-19 08:13 by Bud Blood (Chemical Analyst) * Op Note - Robinson Fields MD - 03/08/2019 12:00 AM EST [facility] [place] OPERATIVE REPORT Patient Name: ROBERT HURLEY JR [facility] Number: [id number] Date of : 1965 Date of Admission: 03/02/2019 Date of Procedure: 03/08/2019 Attending Physician: CARSON ORTIZ MD [facility] PRE[facility]ATIVE DIAGNOSIS: Left leg infection. POSTOPERATIVE DIAGNOSIS: Left leg infection. OPERATION PERFORMED: Left above-knee amputation. ATTENDING SURGEON: Carson Ortiz MD ASSISTANTS: 1. Tammy Villalba MD 2. Ryanne Farrell, MS3 ESTIMATED BLOOD LOSS: 50 cc. SPECIMEN: Left leg. ANESTHESIA: Regional block and sedation. FINDINGS: Viable muscle seen at the above-knee level. INDICATIONS: This is a 53-year-old diabetic male who presented to the hospital with cellulitic and fluctuance of the left lower leg. This fluctuance was incised where we encountered a copious amount of purulence and devitalized tissue, muscle and fascia. It was decided to pursue left above-knee amputation to remove the infectious source and to facilitate prosthesis fitting and ambulation in the future. The risks and benefits of the procedure were discussed with the patient. The risks include bleeding, infection, need for further surgery and possible . OPERATION: After informed consent was obtained, the patient was brought into the operating room and put on the table in supine position. In the preoperative holding area, the patient had a regional block on his left leg. Sedation anesthesia was induced and preoperative antibiotic was given. The left leg was prepped and draped in the usual sterile fashion. Timeout was then called to verify the correct patient, correct procedure, correct side of the procedure, as well as for any special equipment that was needed for the procedure. Our attention was first turned to the left lower extremity incision and drainage wound site. Upon gross examination, we noted devitalized muscle, fascia, as well as skin. We also noted a copious amount of purulence still. At this time, we decided to perform left above-knee amputation. A fishmouth skin incision was made approximately 5-10 cm above the left knee. The incision was deepened with electrocautery. The femur was isolated circumferentially. Our attention was then turned to the medial side of the incision where the neurovascular bundle was identified and dissected individually. These structures were transected and suture ligated. Using an oscillating saw, the femur was transected approximately 2 to 3 cm above the skin incision level. The edges of the femur were smoothed out with a rasp, and using an amputation knife, the posterior tissue was transected and the left leg was sent off as a pathology specimen. After obtaining good hemostasis, the whole incision was irrigated copiously. Hemostasis was again checked. Posterior and anterior fascia were reapproximated using 2-0 Vicryl sutures in interrupted fashion. The skin was then closed using skin santos. A light compressive sterile dressing was applied to the left above-knee amputation stump. The patient tolerated the procedure well and was awoken from anesthesia and was transferred to the PACU in stable condition. Electronically Signed By: CARSON ORTIZ MD 03/09/2019 09:26 A CARSON ORTIZ MD Attending Surgeon, VASCULAR SURGERY DHL/wmx Dictated Date/Time: 03/08/2019 10:25 Director Dance Date/Time: 03/08/2019 15:47 Document Number: [id number] Job Number: [id number] REFERRING PHYSICIAN: PRIMARY CARE PHYSICIAN: NIURKA HURLEY MD [address] [place] [address] REFERRING PHYSICIAN: DICTATED CC: Document is Signed NOTE: supplied by interface * Op Note - Carson Ortiz - 03/08/2019 12:00 AM EST Pre-Op Diagnosis: non-healing wound of left lower extremity. Pre-Op Diagnosis: 02. Active Dx: Cellulitis: Post-Op Diagnosis: Same. Procedures: Left above knee amputation. Primary Surgeon: Dr. Carson Ortiz. Plastic Surgery Coordinator(s): Ryanne Cueva, MS3. Anesthesia: Regional Block MAC. Estimasted Blood Loss: 50 ml. Description of Findings: Purulent and suppurative appearing wound along length of left lower extremity below the knee Otherwise normal anatomy above knee Hemostasis and secure closure at conclusion of case. Drains: None. Events: None. Complications: None. Attending Attestation: * I was present for the entire procedure. Electronic Signatures: Deejay DACOSTA, Tammy Rosenberg (Resident) (Signed 08-Mar-19 10:33) Authored: Carson Charles MD (Attending) (Signed 08-Mar-19 14:30) Authored: General Co-Signer: General Last Updated: 08-Mar-19 14:30 by Carson Ortiz MD (Attending) * Pre-Procedure Assessment - Robinson Fields MD - 03/08/2019 12:00 AM EST Time-Out Statements: The procedure being performed was Nerve Block. This procedure was performed by Dr. Eusebio Evans. Time-Out is required for all procedures performed in any location, including the bedside. Site marking is required for all procedures with right/left distinction, multiple structures (as in fingers and toes), or levels (as in spinal procedures). Time-Out was called at 07:51. Additional Comments: left sciatica nerve block. Electronic Signatures: Divya Franco RN (Nurse) (Signed 08-Mar-19 07:51) Authored: Time Out for Procedure Last Updated: 08-Mar-19 07:51 by Divya Franco RN (Nurse) * Procedures - Shakira Ray - 03/08/2019 12:00 AM EST Pain Procedure: The procedure that was performed was a nerve block. This procedure was performed by Dr. Evans and assisted by Dr. Ray 08-Mar-2019 08:51. Indications for this procedure included surgical block/anesthesia. History and Physical reviewed and appropriate. Risks, benefits and alternatives to the procedure have been discussed and informed consent was consent signed. Sedative medication was administered including 2 mg versed and 100 micrograms fentanyl. Nasal cannula was placed on patient and O2 administered. Hand hygiene performed. The left posterolateral thigh and groin regions was prepped with chlorhexidine under sterile conditions. The clinicians performing this procedure donned a hat and mask. 1% lidocaine was injected into the skin, subcutaneous tissue and ligaments by using a 25 gauge needle. Anticoagulation and antiplateletorders reviewed and confirmed. Final Time Out performed immediately prior to procedure. A 4 inch stimuplex was placed into the posterolateral thigh and groin regions. The procedure was performed without difficulty. Negative Paresthesias throughout. Serial aspirations negative throughout the procedure. The patienttolerated the procedure well with no complications Ultrasound used. Upon completion of procedure, the patient's mental status was alert and oriented and vital signs Unremarkable. Additional Comments: 0.5% ropivacaine was used. 35 mL was infiltrated for a proximal sciatic block.10 mL was infiltrated for obturator block. 20 mL was infiltrated for femoral block. 3 mL was infiltrated for lateral femoral cutaneous nerve block. Low injection pressures. Optimal spread of LA visualized via ultrasound. Patient tolerated well. Moderate Sedation: Vital Signs: Vital SignsPlease reference nursing procedural sedation documentation. Attending Note/Attestation: ASSESSMENT: Acceptable candidate for single shot nerve block at Dr. Ortiz's request for postoperativepain management. I was present for the entire procedure. Electronic Signatures: Roc Evans MD (Resident) (Signed 08-Mar-19 09:05) Authored: Pain Procedure, Moderate Sedation, Attending Note/Attestation Shakira Ray MD (Attending) (Signed 10-Mar-19 13:15) Authored: Pain Procedure, Attending Note/Attestation Co-Signer: Pain Procedure, Moderate Sedation, Attending Note/Attestation Last Updated: 10-Mar-19 13:15 by Shakira Ray MD (Attending) * Interim Summary - Divya Ac - 03/07/2019 12:00 AM EST To OR today with vascular surgery. NPO since midnight. Consent obtained and in the chart. Electronic Signatures: Divya Ac DO (Resident) (Signed on 07-Mar-19 01:35) Authored Last Updated: 07-Mar-19 01:35 by Divya Ac DO (Resident) * Social Care Assessment Summary - Robinson Fields MD - 03/06/2019 12:00 AM EST Patient Name: Saul HURLEY JR Date of : 1965 Progress Note Progress Note Has Discharge Plan Changed? If Yes, Please Describe Change and Provide Details in Additional Comments Box Below. Answers: No Additional Comments Notes: Discussed with multidisciplinary team, per attending physician dr. Larson pt is not medically ready to d/c. Pt is scheduled for LLE washout tomorrow with SGR. Pt currently has acute rehab recs- SW visited with the pt and discussed d/c plan. Pt is stating that he is interested in rehab placement and in agreement to be referred to [facility]. Referral to [facility] initiated on this day. Team updated. SW will continue to follow and assist with d/c plan and as needed. Electronically signed by: Santa Edwards * Interim Summary - Jamison Marin - 03/05/2019 12:00 AM EST To OR today for Incision and drainage of left leg abscess. NPO. Consent in chart. Electronic Signatures: Tania ALBERTO MD, Corey A (Resident) (Signed on 05-Mar-19 07:10) Authored Last Updated: 05-Mar-19 07:10 by Tania ALBERTO MD, Corey A (Resident) * Op Note - Robinson Fields MD - 03/05/2019 12:00 AM EST [place] OPERATIVE REPORT Patient Name: ROBERT HURLEY Jr Hospital Number: [id number] Date of : 1965 Date of Admission: 03/02/2019 Date of Procedure: 03/05/2019 Attending Physician: CARSON ORTIZ MD Patient Location: [id number] A PREOPERATIVE DIAGNOSIS: Left leg infection. POSTOPERATIVE DIAGNOSIS: Left leg infection. SURGERY PERFORMED: Incision and drainage of left leg abscess, excisional debridement of left lower leg tissue ATTENDING PHYSICIAN: Carson Ortiz MD. ] MARINE EQUIPMENT PRESERVATION INSPECTOR: Shakira Cohen DO. ESTIMATED BLOOD LOSS: Minimal. ANESTHESIA: General. FINDINGS: Copious amount of purulence from anterior, lateral, as well as posterior compartments of the left leg. INDICATIONS: This is a 53-year-old gentleman with diabetes who presented to the hospital with erythema and fluctuance over left lateral leg below the knee. We decided to offer the patient incision and drainage to control the infectious source. Risks and benefits of the procedure were discussed with the patient. Risks include infection, bleeding, need for further surgery, need for amputation and possible . OPERATION: After informed consent was obtained, the patient was brought into the operating room and put on the table in the supine position. General endotracheal anesthesia was induced and preoperative antibiotics were given. Left leg was prepped and draped in usual sterile fashion. A time-out was then called to verify the correct patient, correct procedure, correct side of the procedure, as well as for and the special equipment that is needed for the procedure. Using #10 blade longitudinal incision was made on the left lateral lower leg where we encountered a copious amount of purulence. The purulence was cultured x2 and sent off to microbiology lab. The incision spanned from just above the left ankle all the way to the tibial tuberosity level. We noted devitalized subcutaneous tissue, muscle, as well as fascia which were excised as much as possible to a somewhat healthy level. The whole incision was pulse lavaged and irrigated copiously. The muscle that was left over from the excision of the devitalized tissue was viable. We decided to pack the incision with wet Kerlix x1 and light compressive dressing was applied on the left lower leg. The size of the wound was approximately 40cm x 15cm. The patient tolerated the procedure well and was extubated and transferred to PACU in stable condition. Electronically Signed By: CARSON ORTIZ MD 03/06/2019 03:53 P CARSON ORTIZ MD Attending Surgeon, VASCULAR SURGERY DHL/pws Dictated Date/Time: 03/05/2019 14:37 Director Dance Date/Time: 03/06/2019 06:09 Document Number: [id number] Job Number: [id number] Document is Signed NOTE: supplied by interface * Op Note - Carson Ortiz - 03/05/2019 12:00 AM EST Pre-Op Diagnosis: LLE abscess, hx of poorly controlled diabetes. Pre-Op Diagnosis: 02. Active Dx: Cellulitis: Post-Op Diagnosis: Same. Procedures: 1. I+D of LLE extremity. Primary Surgeon: Angel. Plastic Surgery Coordinator(s): Vicki. Anesthesia: GA-ET. Estimasted Blood Loss: 10 ml. Description of Findings: Evacuated 500 cc of pus. Intraoperative culture taken. Remaining tissue appears viable. Drains: None. Events: None. Attending Attestation: * I was present for the entire procedure. Electronic Signatures: Shakira Cohen DO (Resident) (Signed 05-Mar-19 14:40) Authored: Carson Charles MD (Attending) (Signed 09-Mar-19 08:43) Authored: Co-Signer: Last Updated: 09-Mar-19 08:43 by Carson Ortiz MD (Attending) * Interim Summary - Richard Green - 03/04/2019 12:00 AM EST Patient was seen and evaluated on morning rounds. His abscess in his left lower leg on exam seems to be tracking more proximal. Due to his elevated white count and what appears to be enlarging abscess. He is to the OR today for I & D of left lower extremtiy. He has been NPO since midnight, he was informed of all the risks and benefits, he was consented, and he agrees with the plan. Electronic Signatures: Richard Green DO (Resident) (Signed on 04-Mar-19 09:01) Authored Last Updated: 04-Mar-19 09: by Richard Green DO (Resident) * Social Care Assessment Summary - Robinson Fields MD - 03/03/2019 12:00 AM EST Patient Name: Saul HURLEY JR Date of : 1965 Progress Note Progress Note Has Discharge Plan Changed? If Yes, Please Describe Change and Provide Details in Additional Comments Box Below. Answers: Yes wes/btc note Is the Patient Aware of the Change in Discharge Plan? Answers: Yes Medicare Second Notice? Answers: Not Applicable Additional Comments Notes: Enrolled to wes/btc under tcm model for 6 week transition period with mahnaz quintero as referral source/payor for services. Wes/btc will assist with support and education at time of discharge. hosp continuous improvement coach will follow during stay. Home continuous improvement coach will visit within 48 hours of discharge and follow with home visits and telephone contact x6 weeks. Visited with patient at bedside--ED obs, hallway bed 228-Instructed patient in wes/btc program, folder with additional info and contact numbers provided--verbalizes understanding and is agreeable to enrollment Electronically signed by: David Hahn * Social Care Assessment Summary - Robinson Fields MD - 03/02/2019 12:00 AM EST Patient Name: Saul HURLEY JR Date of : 1965 Initial Evaluation Note Initial Evaluation Note Information Obtained From: Answers: Patient Current Living Situation Answers: Alone Dwelling Type Answers: House - Single Floor Housing Circumstances - Select All That Apply Answers: None applicable What is Patient's Plan at Discharge Answers: Return to Home Who Will Provide Assistance Post-Discharge? Answers: Self How Many Hours is/are the Caregiver(s) Available? Answers: No Assistance Required Functional Status Prior to Hospitalization Answers: Independent Does Patient Have Home Health? If Yes, Specify Home Health Agency. Answers: No Does the Patient Have Home Infusion or Dialysis? If Yes, Specify Agency. Answers: No Home Infusion, Answers: No Dialysis Does Patient Have Any of the Following Hospital Equipment or DME? If Yes, Specify Type of Equipment/DME. Answers: Cane, Answers: Rollator Does Patient Have Current DME Provider? If Yes, Specify Company. Answers: No Does Patient have a Primary Care Provider? Answers: Yes (if not listed or incorrect, please place Change ADT order in [facility] for registration to update PCP) Transportation Home at Time of Discharge Answers: Family/Friend Transportation to Follow up Appointments Answers: Family or Friend will Provide Does Patient Have Living Will/Advance Directives? If Yes, Instruct Patient/Family to Provide a Copy. Answers: No Does Patient Have a Power of Irrigator? If Yes, Please Specify Who and Instruct Patient/Family to Provide a Copy of Form. Answers: No Medical POA, Answers: No Financial POA Does Patient Have a Guardian? If Yes, Please Specify Who and Request a Copy of Legal Form. Answers: No Additional Comments: Notes: Met with pt ED 228 for initial. Pt lives independently alone in a single floor home and relies on his brother or evangelical member friends for transportation needs and will request the latter for assistance in transport home once d/c'd. Pt has a Rollator and cane that he purchased himself. No HH, LW/AD, or POA. His PCP is Niurka Fairchild with last appointment approx 2 months ago. Pharmacy: [facility] in [place], [place]. Insurance: [employer]. CM will follow. Electronically signed by: Kiran Vargas * ED Notes - Robinson Fields MD - 03/02/2019 12:00 AM EST Registration:: ED Presentation: * ED Arrival Date & Time:02-Mar-2019 09:56 * Reason for Visit:Leg Pain/Diabetic Disposition: : Boarding Evaluation: * Will this patient be boarding in the ED?yes * What location is the patient boarding for?Floor Electronic Signatures: Nohelia Villalobos (Clerical Staff) (Signed 02-Mar-19 09:58) Authored: Registration: Grzegorz Perez RN, Nadiya Gruber (Nurse) (Signed 02-Mar-19 13:31) Authored: Disposition: Last Updated: 02-Mar-19 13:31 by Nadiya Garcia RN (Nurse) * ED Notes - Harlan Lamb Edson Cleary - 03/02/2019 12:00 AM EST Evaluation Time: * Patient seen on:02-Mar-2019 10:00 Evaluation: - CHIEF COMPLAINT: Pain, BLE HISTORY OF PRESENT ILLNESS: ROBERT HURLEY JR is a 53y male with a history of DM, HLD who presentsto the ED for bilateral feet pain for the past several months. The patient complains of bilateral feet pain for the past 3 months and says that his pain is worsening since the initial presentation and would like further medical evaluation at ED today. The patient notes that he put off coming [facility] because [he] thought it would get better but decided that he needed medical attentiontoday. The patient rates his current pain at 10/10. The patient denies N/V/D, fever, chest pain, dyspnea. The patient has no other complaints or concerns at this time. PAST MEDICAL HISTORY: DM, HLD PAST SURGICAL HISTORY: Reviewed FAMILY HISTORY: Reviewed and noncontributory MEDICATIONS: Reviewed ALLERGIES: Reviewed per nursing records. SOCIAL HISTORY: Negative for current tobacco, alcohol, or recreational drug use. REVIEW OF SYSTEMS: A 14 point review of systems was performed and was otherwise negative except as noted in HPI section or below VITALS: Reviewed per nursing records. PHYSICAL EXAM: GENERAL: Well-developed, well-nourished, no acute distress HEENT: Normocephalic, atraumatic. EOMI and pupils equal. Mucous membranes moist NECK: No tracheal deviation HEART: Well-perfused and non-cyanotic LUNGS: Normal effort, good air movement, and equal chest rise ABDOMEN: Non-distended EXTREMITIES: Moving all four extremities with no acute deformity or joint effusions SKIN: Warm, dry, well-perfused, no rashes NEURO: Alert, awake, and oriented to person, place, and time, CN 2-12 grossly intact. No ataxia or dysmetria PSYCH: Normal speech and affect LABS/IMAGING: MEDICAL DECISION MAKING: Pt was seen and examined in triage by Dr. Lamb. And care was followed up by IMPRESSION: DISPOSITION: Attending Attestation: The documentation was recorded by Arsen Watson acting as scribe in my presence at the time of the encounter and accurately reflects the service I personally performed and the decisions made by me. Date/Time: 02 March 2019 Entered by Arsen Watson, acting as scribe for Dr. Lamb Orders: Orders: * Hemogram With Diff, Lab Information: [id number], 02-Mar-2019, Results Received, Standard * Lactic Acid, Venous, Lab Information: [id number], 02-Mar-2019, Results Received, Standard * Comprehensive Metabolic Panel, Lab Information: [id number], 02-Mar-2019, Results Received, Standard * [place] Hepatitis C Antibody, Lab Information: [id number], 02-Mar-2019, Results Received, Standard * Hemoglobin A1c, Lab Information: [id number], 02-Mar-2019, Results Received, Standard * Magnesium Level, Lab Information: [id number], 02-Mar-2019, Results Received, Standard * Phosphorus, Lab Information: [id number], 02-Mar-2019, Results Received, Standard * Extra Tube, Green, Lab Information: [id number], 02-Mar-2019, Results Received, Standard * Sodium, Urine Random, Lab Information: [id number], 02-Mar-2019, Results Received, Standard * Hemoglobin A1c, 03-Mar-2019, Discontinued, Standard * Basic Metabolic Panel, Lab Information: [id number], 03-Mar-2019, Results Received, Standard * Hemogram With Diff, Lab Information: [id number], 03-Mar-2019, Results Received, Standard * Magnesium Level, Lab Information: [id number], 03-Mar-2019, Results Received, Standard * Osmolality, Plasma, Lab Information: [id number], 03-Mar-2019, Results Received, Standard * Phosphorus, Lab Information: [id number], 03-Mar-2019, Results Received, Standard * Blood Culture (Aerobic/Anaerob Set), Blood ([facility]) 03-Mar-2019, Collected, Standard * Basic Metabolic Panel, 04-Mar-2019, Pending, Standard * Hemogram, 04-Mar-2019, Pending, Standard * Prothrombin Time, 04-Mar-2019, Pending, Standard * CT Lower Extremity with IV Contrast Left, Radiology Location: ED Method of Transport: Bed RIS Number: [id number], 02-Mar-2019, Results Received, Standard * CTA Abdomen & Pelvis with Runoff, Radiology Location: ED Method of Transport: Bed RIS Number: [id number], 02-Mar-2019, Results Received, Standard * Tib/Fib Left, Bed RIS Number: [id number], 02-Mar-2019, Results Received, Standard * Venous duplex Lower Extremity Unilateral, RIS Number: [id number], 02-Mar-2019, Completed, Standard * Arterial Lower Ext Seg JAILYN/waveforms, RIS Number: [id number], 02-Mar-2019, Discontinued, Standard * Arterial Lower Ext Seg JAILYN/waveforms, RIS Number: [id number], 03-Mar-2019, Results Received, Standard * Acetaminophen, Tablet [Ordered as TYLENOL oral] Dose = 650 MG Oral every 4 hours PRN Pain; use first. Give with NSAIDs if available., 02-Mar-2019, Active, Standard * Vancomycin Inj, Dose = 1500 MG IntraVenous Piggy Back once Run at: 193.33 mL/hr Infuse over: 1.5 hour Intermediate vesicant, 02-Mar-2019, Completed, Standard * Docusate 50 mg-Senna 8.6 mg, Tablet Dose = 1 tablet Oral 2 times a day PRN Use when no bowel movement in 72 hours, per patient request/preference, or per MD request. Bowel regimen agents may be used alone or in combination., 02-Mar-2019, Active, Standard * Ondansetron Disintegrating Tablet, [Known as ZOFRAN Disintegrating Tab] Dose = 4 MG Oral every 6 hours PRN nausea/vomiting, 02-Mar-2019, Active, Standard * OxyCODONE, Tablet [Known as ROXICODONE] Dose = 5 MG Oral every 4 hours PRN Pain unresponsive to other medications/interventions. Hold for sedation., 02-Mar-2019, Active, Standard * Polyethylene glycol 3350 - powder for reconstitution, Powder for Reconstitution Dose = 17 gram Oral Once a day PRN Use when no bowel movement in 72 hours, per patient request/preference, or per MD request. Bowel regimen agents may be used alone or in combination., 02-Mar-2019, Active, Standard * Dextrose 10% - 25 gm/250 mL (IVPB), Dose = 12.5 gram IntraVenous Piggy Back Per Glucose Monitoring PRN PRN POC BG 51-70, please see special instructions for further details When patient is NPO with IV access: If POC BG 51 to 70 mg/dL give 12.5gm of Dextrose 10% (12.5gm = 125mL). Recheck POC BG 15 minutes after administration and retreat if necessary until POC BG is >100. Run at: 999 mL/hr Infuse over: 7.51 min, 02-Mar-2019, Active, Standard * Dextrose 10% - 25 gm/250 mL (IVPB), Dose = 25 gram IntraVenous Piggy Back Per Glucose Monitoring PRN PRN POC BG 50 or less, please see special instructions for further details For patient with IV access: If POC BG is less than or equal to 50 mg/dL, give 25gm of Dextrose 10% (25gm = 250mL). Recheck POC BG 15 minutes after administration and retreat if necessary until POC BGis > 100. Run at: 999 mL/hr Infuse over: 15.02 min, 02-Mar-2019, Active, Standard * Glucagon Inj., [Known as GLUCAGEN] Dose = 1 MG IntraMuscular Per Glucose Monitoring PRN If patient NPO, lacks IV access, May Give IM and POC BG less than or equal to 70 mg/dL, If patient NPO, and/or lacks IV access, and POC BG is less than or equal to 70 mg/dL, give 1mg glucagon IM. Recheck POC BG 15 minutes after administration and retreat if necessary until POC BG is > 100. Do not give in patient with pheochromocytoma or insulinoma., 02-Mar-2019, Active, Standard * Glucose 40%, Gel Dose = 1 tube Oral Per Glucose Monitoring PRN POC BG 50 to 70 When POC BG is 51 to 70 mg/dL and patient is able to take PO (does not have NPO order), glucose 40%gel = 15gm fast acting carbohydrates and may be used as an alternative to juice, soda or milk. WhenPOC BG is less than or equal to 50mg/dl, two tubes of glucose 40% gel = 30 gm of carbohydrates may be used. Recheck POC BG 15 minutes after administration and retreat if necessary until POC BG is > 100., 02-Mar-2019, Active, Standard * Insulin Lispro (HUMALOG) Inj. 100 units/mL (Correction Factor), 2 units if POC BG 150 - 199 4 units if POC BG 200 - 249 6 units if POC BG 250 - 299 8 units if POC BG 300 - 349 10 units if POC BG 350 - 399 call provider if POC BG greater than 400 SubCutaneous 3 times a day after meals PRN Correction Dose to be given in addition to Mealtime Scheduled Insulin, 02-Mar-2019, Discontinued, Standard * Insulin Lispro (HUMALOG) Inj. 100 units/mL (Correction Factor), 1 units if POC BG 250 - 299 2 units if POC BG 300 - 349 3 units if POC BG 350 - 399 Call Provider if POC BG greater than 400 SubCutaneous <User Schedule> ( every 1 day: 03:00, 21:00 ) PRN Correction Dose to be given for POC BG at Bedtime or 0300am, 02-Mar-2019, Active, Standard * Enoxaparin Inj. (PROPHYLAXIS), Dose = 40 MG SubCutaneous once a day, 02-Mar-2019, Active, Suspend * [facility], 02-Mar-2019, Active, Standard * Insulin Glargine (LANTUS) Inj. 100 units/mL, [Known as LANTUS] Dose = 10 units SubCutaneous once a day please give first dose now Do NOT hold long acting insulin without contacting provider, 02-Mar-2019, Discontinued, Standard * Insulin Lispro (HUMALOG) Inj. 100 units/mL, Dose = 3 units SubCutaneous 3 times a day (after meals) HOLD if patient NPO or if patient eats less than 50% of meal, 02-Mar-2019, Discontinued, Standard * Insulin Lispro (HUMALOG) Inj. 100 units/mL (Correction Factor), 1 units if POC BG 150 - 199 2 units if POC BG 200 - 249 3 units if POC BG 250 - 299 4 units if POC BG 300 - 349 5 units if POC BG 350 - 399 Call Physician for units if POC BG greater than 400 SubCutaneous 3 times a day after meals to be given in addition to Mealtime Scheduled Insulin, 02-Mar-2019, Discontinued, Standard * Emollients, topical - lotion, [Ordered as EUCERIN LOTION] Dose = 1 application Topical BLE 3 times a day, 02-Mar-2019, Active, Standard * Insulin Lispro (HUMALOG) Inj. 100 units/mL (Correction Factor), 1 units if FSBS 150 - 199 2 units if FSBS 200 - 249 3 units if FSBS 250 - 299 4 units if FSBS 300 - 349 5 units if FSBS 350 - 399 Call Physician for units if FSBS greater than 400 SubCutaneous 3 times a day (after meals) PRN Correction Dose to be given in addition to Mealtime Scheduled Insulin, 02-Mar-2019, Discontinued, Standard * Insulin Lispro (HUMALOG) Inj. 100 units/mL (Correction Factor), 1 units if FSBS 150 - 199 2 units if FSBS 200 - 249 3 units if FSBS 250 - 299 4 units if FSBS 300 - 349 5 units if FSBS 350 - 399 Call Physician for units if FSBS greater than 400 SubCutaneous 3 times a day (after meals) to be given in addition to Mealtime Scheduled Insulin, 02-Mar-2019, Active, Standard * Vancomycin Inj. - Pharmacist to Dose, Medication: Vancomycin Indication: cellulitis, 03-Mar-2019, Completed, Standard * Pharmacist to Dose Consult, Medication: Cefepime Indication: cellulitis of LLE, 03-Mar-2019, Completed, Standard * Insulin Lispro (HUMALOG) Inj. 100 units/mL, Dose = 7 units SubCutaneous 3 times a day (after meals) HOLD if patient NPO or if patient eats less than 50% of meal, 03-Mar-2019, Active, Standard * MetroNIDAZOLE, Tablet [Ordered as FLAGYL] Dose = 500 MG Oral every 8 hours, 03-Mar-2019, Active, Standard * Cefepime Inj., Dose = 2 gram IntraVenous Piggy Back every 8 hours Infuse first dose over 30 mins Run at: 33.33 mL/hr Infuse over: 3 hour, 03-Mar-2019, Active, Standard * Vancomycin Inj, Dose = 1000 MG IntraVenous Piggy Back every 12 hours Run at: 200 mL/hr Infuse over: 1 hour Intermediate vesicant, 03-Mar-2019, Active, Standard * Insulin Glargine (LANTUS) Inj. 100 units/mL, [Known as LANTUS] Dose = 10 units SubCutaneous once Do NOT hold long acting insulin without contacting provider, 03-Mar-2019, Completed, Standard * Phosphate 250 mg/Potassium 280 mg/Sodium 160 mg, Powder for Reconstitution [Ordered as PHOS-NAK] Dose = 1 packet Oral once, 03-Mar-2019, Completed, Standard * Insulin Glargine (LANTUS) Inj. 100 units/mL, [Known as LANTUS] Dose = 20 units SubCutaneous once a day please give first dose now Do NOT hold long acting insulin without contacting provider, 04-Mar-2019, Discontinued, Standard * Insulin Glargine (LANTUS) Inj. 100 units/mL, [Known as LANTUS] Dose = 20 units SubCutaneous once a day Do NOT hold long acting insulin without contacting provider, 04-Mar-2019, Active, Standard * NS (no additives), Volume 1000 mL IntraVenous Run at: 100 mL/hr, 02-Mar-2019, Active, Standard * Lactated Ringers (no additives), Volume 1000 mL IntraVenous Run at: 75 mL/hr, 04-Mar-2019, Active, Standard * Albuterol Inhalation MDI, Aerosol with Adapter Dose = 2 puff Inhalation every 4 hours PRN SOA, 02-Mar-2019, Active, Standard * Diet Adult, Regular (REG); Consistent Carbohydrate 2 (CHO2); Cardiac (CARD), 02-Mar-2019, Active,Standard * NPO for Procedure, ; NPO Duration: Until Procedure is Complete; Time to Start: Now; Nothing By Mouth (NPO), 03-Mar-2019, Discontinued, Standard * NPO for Procedure, ; NPO Duration: Until Procedure is Complete; Time to Start: Start after Midnight (0001am); Nothing By Mouth (NPO), 04-Mar-2019, Pending, Standard * Admit, Adult, Inpatient;Floor/Acute Care, Medicine, 02-Mar-2019, Active, Standard * Final Transfer, [facility] ED - OBS 228 - A;[facility], 02-Mar-2019, Completed, Standard * Final Transfer, 9-115;[facility], 03-Mar-2019, Completed, Standard * Final Transfer, please transfer patient to room 9.115 - thank you.;[facility], 03-Mar-2019,Completed, Standard * Fall Prev Protocol, <Continuous>, 02-Mar-2019, Active, Standard * Nursing Hourly Rounding, Instruction text from [facility]_OBJ_DOC_SN_ED_REGIS, 02-Mar-2019, Active, Standard * Peripheral IV Care A, <Continuous> right, Dorsal metacarpal vein (back of hand), 02-Mar-2019, Active, Standard * Smoking Cessation / Education, Once Education Comments: This patient requires Smoking Cessation Education 1. Select the Education Resource Link below and Print Copy for Patient 2. When educatioin is complete you MUST krzysztof the task as performed on the Patient Care Worklist, 02-Mar-2019, Active, Standard * Admission Screenings, 02-Mar-2019, Active, Standard * Advanced Directives, 02-Mar-2019, Active, Standard * Assess Skin Integ, <Continuous>, 02-Mar-2019, Active, Standard * Fall Prev Protocol, <Continuous>, 02-Mar-2019, Active, Standard * LOW RISK for VTE, 02-Mar-2019, Active, Standard * May Receive NRT during stay and at discharge if not , Per Protocol; If patient requests NRT, order only if 18 years or older and not ., 02-Mar-2019, Active, Standard * Patient Profile Complete, 02-Mar-2019, Active, Standard * Reviewed Daily Care Plan, <Continuous>, 02-Mar-2019, Active, Standard * Reviewed Physicians H&P, 02-Mar-2019, Active, Standard * Sequential Compression Device, 02-Mar-2019, Active, Standard * Incentive Spirometry - Nsg, q1h Encourage patient to use incentive spirometer q1 hour while awake, 02-Mar-2019, Active, Standard * Notify Physician For, <Continuous> Open for Detail, 02-Mar-2019, Active, Standard * Notify Physician For, q8h & prn Open for Detail, 02-Mar-2019, Active, Standard * Notify Physician For, q8h & prn Open for Detail, 02-Mar-2019, Active, Standard * O2 prn per Nursing, <Continuous> Maintain O2 sat greater than 92%; Call MD for hypoxia or an increased O2 requirement, 02-Mar-2019, Active, Standard * Vital Signs with O2 Sats, q4h, 02-Mar-2019, Active, Standard * Do Not Hold Scheduled Basal Insulin, <Continuous> If applicable, without physician order., 02-Mar-2019, Active, Standard * Finger Stick Glucose Monitoring, as scheduled Glucose Monitoring: If patient is receiving a PO diet, check POC BG three times daily before meals and bedtime.If patient NPO or receiving c, 02-Mar-2019, Active, Standard * Give Snack, <Continuous> Give Snack if Bedtime or 0300am BG is less than 90 mg/dL, 02-Mar-2019, Active, Standard * Hold Scheduled Meal/Prandial Insulin, <Continuous> If patient NPO or if patient eats less than 50% of meal., 02-Mar-2019, Active, Standard * Notify Physician For, Open for Detail, 02-Mar-2019, Active, Standard * Special Order - Nursing, When POC BG is 51 to 70 mg/dL and patient is able to take PO (does not have NPO order), give 15gm of fast acting carbohydrates. Options include 4 oz of juice (apple juice preferred in renal patients), 4 oz non-diet soda, 8 oz milk, or 1 tube of Glucose 40% gel. Recheck POC BG 15 minutes after administration and retreat if necessary until POC BG is > 100., 02-Mar-2019, Active, Standard * Special Order - Nursing, After patient receives 25gm Dextrose and patient alert and can take PO (does not have NPO order) give 15 gm of fast acting carbohydrates. Recheck POC BG 15 minutes after administration and retreat if necessary until POC BG is > 100., 02-Mar-2019, Active, Standard * Special Order - Nursing, If POC BG is less than or equal to 50mg/DL and able to take PO (does nothave NPO order), give 30gm fast acting carbohydrates. Options include 8 oz of juice (apple juice preferred in renal patients), 8 oz non-diet soda, 16 oz milk, or 2 tubes glucose 40% gel. Recheck POC BG 15 minutes after administration and repeat if necessary until POC BG >100., 02-Mar-2019, Active, Standard * Special Order - Nursing, If patient is on TFs/TPN, HOLD scheduled regular insulin if TFs/TPN are currently held or will be held within the next 6 hours. HOLD if on trophic tube feeding (10-20 ml/hr)., 02-Mar-2019, Active, Standard * Do Not Hold Scheduled Basal Insulin, <Continuous> If applicable, without physician order., 02-Mar-2019, Active, Standard * Finger Stick Glucose Monitoring, as scheduled Glucose Monitoring: If patient is receiving a PO diet, check POC BG three times daily before meals and bedtime.If patient NPO or receiving c, 02-Mar-2019, Active, Standard * Give Snack, <Continuous> Give Snack if Bedtime or 0300am BG is less than 90 mg/dL, 02-Mar-2019, Active, Standard * Hold Scheduled Meal/Prandial Insulin, <Continuous> If patient NPO or if patient eats less than 50% of meal., 02-Mar-2019, Active, Standard * Special Order - Nursing, If patient is on TFs/TPN, HOLD scheduled regular insulin if TFs/TPN are currently held or will be held within the next 6 hours. HOLD if on trophic tube feeding (10-20 ml/hr)., 02-Mar-2019, Active, Standard * Special Order - Nursing, When POC BG is 51 to 70 mg/dL and patient is able to take PO (does not have NPO order), give 15gm of fast acting carbohydrates. Options include 4 oz of juice (apple juice preferred in renal patients), 4 oz non-diet soda, 8 oz milk, or 1 tube of Glucose 40% gel. Recheck POC BG 15 minutes after administration and retreat if necessary until POC BG is > 100., 02-Mar-2019, Active, Standard * Special Order - Nursing, After patient receives 25gm Dextrose and patient alert and can take PO (does not have NPO order) give 15 gm of fast acting carbohydrates. Recheck POC BG 15 minutes after administration and retreat if necessary until POC BG is > 100., 02-Mar-2019, Active, Standard * Special Order - Nursing, If POC BG is less than or equal to 50mg/DL and able to take PO (does nothave NPO order), give 30gm fast acting carbohydrates. Options include 8 oz of juice (apple juice preferred in renal patients), 8 oz non-diet soda, 16 oz milk, or 2 tubes glucose 40% gel. Recheck POC BG 15 minutes after administration and repeat if necessary until POC BG >100., 02-Mar-2019, Active, Standard * Finger Stick Glucose Monitoring, q15 Min Glucose Monitoring: Recheck POC BG 15 minutes after any hypoglycemia treatment. Continue until POC BG is greater than 100 mg/dL., 03-Mar-2019, Active, Standard * Finger Stick Glucose Monitoring, q15 Min Glucose Monitoring: Recheck POC BG 15 minutes after any hypoglycemia treatment. Continue until POC BG is greater than 100 mg/dL., 03-Mar-2019, Active, Standard * Finger Stick Glucose Monitoring, <Continuous>, 03-Mar-2019, Available for Activation, Standard * Finger Stick Glucose Monitoring, <Continuous>, 03-Mar-2019, Available for Activation, Standard * Change ADT Attending/Service, 03-Mar-2019, Active, Standard * Change ADT Attending/Service, 03-Mar-2019, Active, Standard * Change ADT Attending/Service, 03-Mar-2019, Active, Standard * Change ADT Attending/Service, 03-Mar-2019, Active, Standard * Pressure Ulcer CPG, <Continuous> entered by [facility]_OBJ_BRADEN_ORDERS, 03-Mar-2019, Active, Standard * [facility] - Pressure Ulcer Prevention in the Hospital, 03-Mar-2019, Active, Standard * [facility] - Pressure Ulcer Treatment, 03-Mar-2019, Active, Standard * Consult Wound, Ostomy, Continence Nurse, <Continuous> Open draining wound open draining wounds on bilat legs, 03-Mar-2019, Active, Standard Attending Attestation: Main ED: I personally saw and evaluated this patient face to face in the physician intake pod, initiated their workup, and documented their history and physical exam with the scribe listed. I initiated the medical decision making in the intake pod. The patient was transferred to the main ED where asecondary provider completed subsequent treatment and documentation, including the MDM and impression/disposition. Electronic Signatures: Harlan Lamb MD (Attending) (Signed 03-Mar-19 21:37) Authored: Orders, ATTENDING ATTESTATION/ CRITICAL CARE CHARGING Co-Signer: EVALUATION TIME, EVALUATION Arsen Watson (Scribe) (Signed 02-Mar-19 10:05) Authored: EVALUATION TIME, EVALUATION Last Updated: 03-Mar-19 21:37 by Harlan Lamb MD (Attending) * ED Notes - Provider, MD Robinson - 03/02/2019 12:00 AM EST Triage Presentation: * ED Arrival Date & Time:02-Mar-2019 09:56(1) Triage Initial: * Triage Time:02-Mar-2019 10:01 * Chief Complaintpain * [facility] * Transferred From :N/A Chief Complaint Information: * History of Present Illnesspatient c/o pain in lower extremities bilaterally x 3 months Primary Care Physician (PCP): * PCP contacted? No. Home Medications: Vital Sign Assessment: * [id number] mm Hg * Sndmuxfwz99 mm Hg * BP Noninvasive Mean77.33 mm Hg * Temperature F97.9 degrees F * Temperature Hkrfrlt24.61 degrees C * Temperatureoral * Heart Rate 107 bpm * Respiratory Rate18 breaths per minute * Pulse Oximetry SpO2 (%)98 percent hemoglobin [place] Coma Scale: [place] Coma Scale: * GCS - Best Eye Response4= spontaneous * GCS - Best Motor Response6= obeys commands * GCS - Best Verbal Response5= oriented * Mariela Coma Scale15 Triage Height/Weight: * Initial Weight (lbs)163.1 lb * Initial Weight (kg)74 kg * Weight Methodactual (measured) Primary Evaluation: Additional Triage Assessment: * Pain Rating (0-10):10 General Information: * Health Historydiabetes- hyperlipidemia Home Medications: Hepatitis C Testing: If you have blood drawn today, as part of your care, we will also do a Hepatitis C test at no cost to you, unless you say no. If your test is positive, someone will contact you.Continue Pharmacy Opt In/Out Statement: Your drug prescriptions will be sent to *s [facility] pharmacy and will be ready for you at discharge from the Emergency Department. If you wish to decline this service, your prescriptions will be printed for you or sent to a pharmacy of your choice.Opt In Travel Information: * Have you traveled outside the [place] in the past 60 days?no Acuity: * Acuity:3 Triage Completion Time: * Triage Completion [id number] 10:03 Electronic Signatures: Rosalee KILGORE, Macie Hinds (Nurse) (Signed 02-Mar-19 10:08) Authored: Triage Presentation, Primary Evaluation, General Information Last Updated: 02-Mar-19 10:08 by Rosalee KILGORE, Macie Hinds (Nurse) References: 1. Data Referenced From ED Registration/Disposition Note 03/02/2019 9:58 AM * ED Notes - Miguelito Avitia - 03/02/2019 12:00 AM EST Evaluation Time: * Patient seen on:02-Mar-2019 11:22 Evaluation: - 02 March 2019 CHIEF COMPLAINT: Left leg pain HISTORY OF PRESENT ILLNESS: ROBERT HURLEY JR is a 53y y/o male presenting to the ED with left legpain. He has a history of uncontrolled diabetes, CAD status post PCI, CHF, COPD. He states that he has had worsening left lower leg pain that is sharp and tingly in quality. The pain is so severe that he cannot walk or sleep at night. The pain has worsened to the point that he felt he needed emergency Room attention. States that he takes Lyrica at home for neuropathy however this no longer is helping him. He has not had any trauma to the area, fever, or drainage from the leg. He otherwise states that he has been in good health and has been taking his medications as prescribed. He denies chestpain, shortness of breath, abdominal pain, nausea, vomiting. States that his appetite has been well. He denies any other concerns at this time. PAST MEDICAL HISTORY: CAD status post PCI, CHF, COPD, type 2 diabetes complicated by neuropathy PAST SURGICAL HISTORY: Cholecystectomy, PCI TRAVEL HISTORY: No recent international travel OUTPATIENT MEDS: Reviewed per nursing records ALLERGIES: Penicillin->Other SOCIAL HISTORY: Smokes 1/2 pack per day, denies alcohol or illicit drug use. FAMILY MEDICAL HISTORY: reviewed and non-contributory REVIEW OF SYSTEMS: All systems were reviewed with the patient and negative except as noted in the HPI. VITALS: VITALS (last 24h) [retrieved for ROBERT HURLEY JR at 02 Mar 2019 11:22]: Tc: 36.6 Tmax: 36.6 @ Feb 10:00 Tf: 97.9 Tmax: 97.9 @ Feb 10:00 HR: 107 (107 - 107) BP: 104/64 (104/64 - 104/64) RR: 18 (18 - 18) SpO2: 98% (98% - 98%) PHYSICAL EXAM: GENERAL: Thin white male in mild distress HEENT: Normocephalic, atraumatic. extraocular muscles intact. White spots covering tongue NECK: neck supple, no tracheal deviation HEART: Regular rhythm, tachycardic, no murmurs appreciated LUNGS: Clear bilaterally with normal effort and good air movement. No wheezes, rales, or rhonchi ABDOMEN: Soft, nontender, nondistended. Bowel sounds present EXTREMITIES: Bilateral lower extremities with chronic dermatitis; bilateral lower extremity pulses intact throughout, erythema to the left lower extremity with mild edema SKIN: Warm, dry, well-perfused, no jaundice, no cyanosis NEURO: Alert, awake, and oriented to person, place, and time and situation. GCS 15. Grossly nonfocal with intact strength and sensation to bilateral upper and lower extremities PSYCH: Cooperative, Appropriate Mood and Affect LABS/IMAGING: Labs and imaging reviewed and interpreted. Findings and radiology reads as below. LABS (last 24h) [retrieved for ROBERT HURLEY JR at 02 Mar 2019 12:00]: 128 86 23 < 273 Ca: 9.3 P: 3.3 M.9 [03/02 @ 10:35] 4.6 20 0.80 AST: 19 / ALT: 14 / AlkPhos: 166 / Bili: 0.7 / Prot: 8.8 / Alb: 1.4 [03/02 @ 10:35] WBC: 26.63 / Hb: 12.7 / Hct: 38.8 / Plt: 391 [03/02 @ 10:34] -- Diff: N:69% L:16% Mo:9% Eo:0% Baso:0% Left lower extremity Doppler pending. MEDICAL DECISION MAKING: Patient was seen and examined with Dr. Avitia. In summary this is a 53-year-old male with history of uncontrolled diabetes presenting for left lower extremity cellulitis. Patient has significant leukocytosis of 26. Hyponatremia. The patient meets sepsis criteria with leuk ocytosis and tachycardia. Lab workup including CBC, CMP, left lower extremity Doppler were ordered for workup. Patient noted to have anion gap metabolic acidosis as well as anemia with hemoglobin of 12.7. Elevated alkaline phosphatase. IV vancomycin has been started. IMPRESSION: Sepsis secondary to left lower extremity cellulitis, leukocytosis, anion gap metabolic acidosis, anemia, hyperglycemia, hypoalbuminemia, hyponatremia DISPOSITION: Admit to Medicine for IV antibiotics and treatment of left lower extremity cellulitis.Left Lower extremity Doppler Pending At time of admission. Alejandro Colon, PGY-2 Internal Medicine Attending Attestation: I saw and evaluated the patient with the resident/fellow. I discussed the case with the resident/fellow and agree with the findings and plan as documented. Electronic Signatures: Quang Colon DO (Resident) (Signed 02-Mar-19 16:07) Authored: EVALUATION TIME, EVALUATION Miguelito Avitia MD (Attending) (Signed 05-Mar-19 11:01) Authored: ATTENDING ATTESTATION/ CRITICAL CARE CHARGING Co-Signer: EVALUATION TIME, EVALUATION Last Updated: 05-Mar-19 11:01 by Miguelito Avitia MD (Attending) * H&P - Tahsa Mandel - 03/02/2019 12:00 AM EST Document Topic: Service/ Team: M12 - Medicine / Internal Medicine Team 12. History and Physical: - Chief Concern: ROBERT Gee JR is a 53y male who presented on 02 March 2019 with LLE rednesss, pain and swelling. History of Present Illness: 53yo male with history of uncontrolled IDDM with peripheral neuropathy,CAD, COPD, CHF, ME, s/p PCI x 2 and HTN who presents with LLE cellulitis. Pt reports noticing redness near his left ankle approximately 2 months ago. This has now extended to his knee. He also has severe left leg pain that has prohibited him from bearing weight. He has been taking his home Lyrica without any improvement. After he felt feverish and developed chills last night, he decided to call EMS today. In the ED, routine labs showed a wbc of 26K. Pt slightly tachycardic with HR 107. On exam, he has extensive cellulitis of LLE from ankle to knee with scaling of the skin. Sensation also decreased in LLE. Pulses present, but diminished. Skin warm to touch. Additional imaging ordered (CT LLE, CTA A/Pw runoff, Tib/fib XR and JAILYN's). Vascular and Endocrine consulted. Pt is being admitted to Medicinefor further care. Review of system: Review of system is positive for LLE cellulitis and pain. Review of system is negative for fever, eye or ear pain, chest pain, palpitations, shortness of breath, cough, nausea/vomiting/constipation/diarrhea, abdo pain, burning in urination, discharge, loss of consciousness, seizure, bleeding, joint swelling, mood changes. Past 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: IDDMII with uncontrolled peripheral neuropathy CHF, unknown EF CAD, s/p ME with PCI x 2 approximately 2 years ago HLD HTN COPD Past Surgical History: CCY PCI x 2 Allergy: Penicillin-> vomiting Medications: Has not filled meds since 10/2018 per [facility] in [place] Social History: Smokes 1/2 ppd. Denies ETOH or illicit drug use. Family History: Mother is , secondary to CHF. Father is , secondary to CAD and pancreatic cancer. Vitals: VITALS (last 24h) [retrieved for ROBERT HURLEY JR at 02 Mar 2019 13:33]: Tc: 36.6 Tmax: 36.6 @ Feb 10:00 Tf: 97.9 Tmax: 97.9 @ Feb 10:00 HR: 107 (107 - 107) BP: 104/64 (104/64 - 104/64) RR: 18 (18 - 18) SpO2: 98% (98% - 98%) No I&O data recorded in last 24 hours Physical Examination: GENERAL : Disheveled male laying on hallway stretcher in no acute distress. SKIN : LLE cellulitis extending from ankle to knee with scaling of the skin. EYES : conjunctiva clear. ENMT : intact, mucous membranes moist, no apparent injury. HEAD/NECK : neck supple, no apparent injury. RESPIRATORY/THORAX : airway patent, breath sounds equal and respirations non-labored. CARDIOVASCULAR : regular rate, regular rhythm and normal S1 and S2. GASTROINTESTINAL : bowel sounds normal, soft, non-tender. MUSCULOSKELETAL : no joint swelling. EXTREMITIES : LLE cellulitis as above. Decreased sensation to LLE. NEUROLOGICAL : alert and oriented x 4, interactive and normal tone. Decreased sensation to LLE. PT and DP pulses present in LLE but diminished. PSYCHOLOGICAL : appropriate mood and behavior. Medications: SCHEDULED MEDS [retrieved for ROBERT HURLEY JR at 02 Mar 2019 13:33]: (Pharmacy) 2 EACH <see task> GivenOnce PRN MEDS [retrieved for ROBERT HURLEY JR at 02 Mar 2019 13:33]: Acetaminophen 650 MG Oral every 4 hours Dextrose 10% - 25 gm/250 mL (IVPB) 12.5 gram IntraVenous Piggy Back Per Glucose Monitoring Dextrose 10% - 25 gm/250 mL (IVPB) 25 gram IntraVenous Piggy Back Per Glucose Monitoring Docusate 50 mg-Senna 8.6 mg 1 tablet Oral 2 times a day Glucagon Inj. 1 MG IntraMuscular Per Glucose Monitoring Glucose 40% 1 tube Oral Per Glucose Monitoring Insulin Lispro (HUMALOG) Inj. 100 units/mL (Correction Factor) units SubCutaneous 3 times a day after meals Insulin Lispro (HUMALOG) Inj. 100 units/mL (Correction Factor) units SubCutaneous <User Schedule> Ondansetron Disintegrating Tablet 4 MG Oral every 6 hours OxyCODONE 5 MG Oral every 4 hours Polyethylene glycol 3350 - powder for reconstitution 17 gram Oral Once a day Labs: LABS (last 24h) [retrieved for ROBERT HURLEY JR at 02 Mar 2019 13:33]: 128 86 23 < 273 Ca: 9.3 P: 3.3 M.9 [03/02 @ 10:35] 4.6 20 0.80 AST: 19 / ALT: 14 / AlkPhos: 166 / Bili: 0.7 / Prot: 8.8 / Alb: 1.4 [03/02 @ 10:35] WBC: 26.63 / Hb: 12.7 / Hct: 38.8 / Plt: 391 [03/02 @ 10:34] -- Diff: N:69% L:16% Mo:9% Eo:0% Baso:0% Assessment/Plan: 53yo male with history of uncontrolled IDDM with peripheral neuropathy, CAD, COPD, CHF, ME, s/p PCIx 2 and HTN who presents with LLE cellulitis. Imaging pending. Vascular and Endocrine consulted. OnIV Vancomycin. Sepsis secondary to acute LLE cellulitis - meets sepsis criteria given leukocytosis (wbc 26K), tachycardic (HR 107) and LLE cellulitis - Lactate 2.1 - LLE duplex pending - CT LLE, CTA A/P w/runoff, Left tib/fib and JAILYN's ordered - Continue vancomycin - please outline cellulitis with skin marker - PRN pain meds - Vascular Surgery consulted AGMA - CO2 20, AG 22 - hydrate with IVFs DM, type II, uncontrolled with hyperglycemia - Glucose 281 on arrival, A1c pending - Reports taking 160 units U500 TID at home, but no meds filled per [place] medication list since 10/2018 - Endocrine consulted for diabetes management - CC2 diet CHF - unknown EF; appears compensated and euvolemic, possibly even hypovolemic, at this time - monitor volume status and be cautious with any IVFs Hyponatremia - mild, 128, asymptomatic - denies hx of liver disease or alcohol use - looks dry on exam - add IVFs and check urine studies COPD - stable, no evidence of acute exacerbation - PRN albuterol MDI Tobacco dependence - NRT, counseled on cessation FEN - Fluids: NS @ 100ml/hr - Electrolytes: monitor and replace - Nutrition: regular, cardiac, diabetic diet PPX - lovenox Althea Pinedo PA-C [facility] [phone] Home Medications: Electronic Signatures: Khris JOHNSON, Althea Crowder (Physician Plastic Surgery Coordinator) (Signed 02-Mar-19 15:41) Authored: DOCUMENT TOPIC, EVALUATION Tasha Mandel MD (Attending) (Signed 03-Mar-19 17:02) Co-Signer: DOCUMENT TOPIC, EVALUATION Last Updated: 03-Mar-19 17:02 by Tasha Mandel MD (Attending) * Consults - Juan Lee - 03/02/2019 12:00 AM EST Consultation Service: Service/ Team: SGR - Surgery / Surgery Red. Requesting Attending Physician: Tasha Mandel MD(Attending): Attending, Medicine - Internal, Medicine Chief Complaint: Requesting ServiceMedicine Dr. Tasha Garcia Reason for ConsultCellulitis of LLE Consult Note: - Chief Complaint: LLE pain , redness and swelling History of Present Illness: Robert Hurley is a 53 year old gentleman who presented to the ED with complaints of LLE pain, redness, and edema x 1 month. Patient reports that he has had difficulty walking on his LLE for approximately 3 months and has had multiple falls at home. Patient states that for the last week he has barelybeen able to get to the bathroom. He hasn't had any food intake in 7 days because he is unable to stand long enough to make anything. Patient lives alone in [place]. His LLE is erythematous from his knee down to his ankle. His skin is scaly on both lower extremities. LLE is warm to touch and TTP. He has bilateral DP and PT signals. Patient has minimal dorsiflexion of his left ankle. He has some sens ation in his LLE but is significantly decreased in his foot. Patient is being admitted to the medicine service and they have ordered CTA abdomen/pelvis with runoff as well as an JAILYN. PMH: HTN HLD CAD COPD, not on home O2 DM2 Heart failure with unknown EF Peripheral neuropathy PSH: Cholecystectomy PCI ~ 2 years ago Social: Patient lives alone in [place] He has 3 children but none live close to him or are able to provide assistance per patient Smokes 1/2 ppd. Started smoking at age 15. Denies any history of alcohol or illicit drug use. Allergies: Penicillin->Other FMH: Reviewed & Non-Contributory Home Medication: Please see [facility] for full list as patient is uncertain of the names of all of his medications. -Cholesterol medication -Lisinopril -Lyrica -Insulin Referring Provider: Dr. Tasha Garcia Primary Care Provider: Dr. Hurley in [place] Outbound Sales Advisor: Dr. Hernandez Review of Systems: A complete 14 point review of systems reviewed and found to be negative except as noted in HPI Physical Exam: GENERAL: Emaciated 53M who appears older than stated age. Moderate discomfort. HEAD: Atraumatic & normocephalic EYES: PERRLA. No scleral icterus or conjunctivitis. EARS: Normal hearing NOSE: Nares patent. THROAT/MOUTH: Moist mucous membranes NECK: The trachea appears midline. LUNGS/CHEST: Breath sounds clear throughout. Bilateral chest excursion noted. No retractions. CARDIAC: RRR, S1S2. No murmur, rubs, or gallop. VASCULAR: Capillary refill ~3 seconds. Palpable radial pulses noted bilaterally. DP and PT signals noted bilaterally. Extremities: 1+ peripheral edema of LLE noted. LLE erythematous & TTP. GI: Abdomen soft, nontender, nondistended. Bowel sounds noted in all 4 quadrants. SKIN: No rash noted. Skin is extremely dry & cracked. Flaking on both lower extremities with the LLE > RLE. Small scab noted on the anterior portion of his RLE. Right foot also has some areas of erythema. NEURO: Awake and oriented x3. Moves all extremities with purpose although he has limited ROM of LLE PSYCH: Cooperative with care. Mood & affect congruent and appropriate to situation. All laboratory, images tracings and vital sign data are personally reviewed unless otherwise noted. Oxygen requirement: room air BMI: unknown Weight: 74.0kg VITALS (last 24h) [retrieved for ROBERT HURLEY JR at 02 Mar 2019 13:35]: Tc: 36.6 Tmax: 36.6 @ Feb 10:00 Tf: 97.9 Tmax: 97.9 @ Feb 10:00 HR: 107 (107 - 107) BP: 104/64 (104/64 - 104/64) RR: 18 (18 - 18) SpO2: 98% (98% - 98%)BP 104/64 HR 107 R 18 T 97.9 (36.6) Wt 74.0kg (0.0lbs) No I&O data recorded in last 24 hours LABS (last 24h) [retrieved for ROBERT HURLEY JR at 02 Mar 2019 13:35]: 128 86 23 < 273 Ca: 9.3 P: 3.3 M.9 [03/02 @ 10:35] 4.6 20 0.80 AST: 19 / ALT: 14 / AlkPhos: 166 / Bili: 0.7 / Prot: 8.8 / Alb: 1.4 [03/02 @ 10:35] WBC: 26.63 / Hb: 12.7 / Hct: 38.8 / Plt: 391 [03/02 @ 10:34] -- Diff: N:69% L:16% Mo:9% Eo:0% Baso:0% Radiographics / Diagnostics: CTA with runoff pending ABIs pending Assessment & Plan: Cellulitis of LLE DM2 (POA) Peripheral Neuropathy (POA) Hypochloremia Hyponatremia Leukocytosis Heart failure (POA) HTN (POA) HLD (POA) Tobacco Use Disorder Patient was seen & evaluated. Please start on IV antibiotics after blood cultures obtained. CTAwith runoff and ABIs pending. Management of chronic conditions per primary team. Please apply Eucerin cream to skin. We will continue to follow along and will give further recommendations once imaging has been completed. Patient will be discussed with Dr. Lee once he is out of the operating room.Thank you for the consultation. Please call if you have any questions or concerns. Cary Madrigal APRN Vascular Surgery [phone] Attending Attestation Statement: I saw and evaluated the patient with the resident/fellow. I discussed the case with the resident/fellow and agree with the findings and plan as documented. Electronic Signatures: Juan Lee MD (Attending) (Signed 10-Mar-19 14:56) Authored: CRITICAL CARE CHARGING STATEMENT/ATTENDING ATTESTATION Co-Signer: CONSULTATION SERVICE, EVALUATION Works Cary HOLLAND (Nurse Practitioner) (Signed 02-Mar-19 14:36) Authored: CONSULTATION SERVICE, EVALUATION Last Updated: 10-Mar-19 14:56 by Juan Lee MD (Attending) * Consults - Vikas Guillen - 03/02/2019 12:00 AM EST Consultation Service: Service/ Team: EN1 - Medicine / Endocrinology Private. Requesting Attending Physician: Tasha Mandel MD(Attending): Attending, Medicine - Internal, Medicine Chief Complaint: Requesting [id number] Reason for ConsultDiabetes Recommendations Consult Note: - HISTORY OF PRESENTING ILLNESS: 53yo male with history of uncontrolled type 2 diabetes mellitus with peripheral neuropathy, CAD, COPD, CHF, ME, s/p PCI x 2 and HTN who presents to ED today with LLE cellulitis. Pt reports noticing redness near his left ankle approximately 2 months ago and has now extended to his knee. He also has severe left leg pain that has prohibited him from bearing weight for approximately 3 months. He has been taking his home Lyrica without any improvement. He reports he hasn *t eaten past 7 days but taking full dose of U500 of 160 units TID and had no hypoglycemia. After he felt feverish and developed chills last night, he decided to call EMS today. Endocrine / diabetes consulted today 03/02 for di abetes recommendations. DIABETES HISTORY: -Type: 2 diagnosed 23 years ago at age 30 -Diabetes provider: PCP ------previously at [facility] (last seen in May 2017) -Current Home Regimen: Reports U500 at 160 units TID -Medication Adherence: reports he may miss a dose every 2 weeks -Previous DM meds: Metformin and Jardiance -BG Monitoring at home: reports 2x per day, BG always in 300s -Previous A1c in 2018 at 9.6% from >14% -Hypoglycemia: never -Sugary drinks: reports none, water, milk, or diet soda -Complications: Endorses Neuropathy, on Lyrica ----Denies retinopathy and nephropathy PAST MEDICAL HISTORY: CAD PVD HLD HTN T2DM Neuropathy Arthritis Asthma COPD CHF Depression ALEXANDRE PAST SURGICAL HISTORY: PCI x2 CCY 1992 SOCIAL HISTORY: Tobacco Use: >0.5 ppd x40 years, quit January 2016 Alcohol Use: Denies Illicit Drug Use: Denies FAMILY HISTORY: Mother, MGM, 2 sisters, brother * Diabetes Home medications: Pt picked up Basaglar on 11/08/18. Last picked up U500 in May 2018. No other insulin Rx picked up this year per [facility] in [place], [place]. Allergies: Penicillin->Other ROS: 14 point ROS conducted and negative except for HPI. Objective: Vital Signs: BP 104/64 HR 107 R 18 T 97.9 (36.6) Wt 74.0kg (0.0lbs)74.0kg0.0cmunknown Exam: Gen: Emaciated male resting in bed, NAD Eyes: PERRL, EOMI, moist conjunctivae HENT: NCAT, MMM, no apparent injury Neck: Trachea midline, FROM, supple CV: RRR, no murmurs Resp: CTAB, normal respiratory effort Abd: Soft, non-tender, BS positive Skin: Dry, flaky skin to BLE. LLE erythematous, +1 edema. Neuro: Alert, interactive, CN II-XII grossly intact bilaterally Psych: Appropriate affect, mood, and judgment Labs: LABS (last 24h) [retrieved for WANDER ROBERT JR Hughes at 02 Mar 2019 14:03]: 128 86 23 < 273 Ca: 9.3 P: 3.3 M.9 [03/02 @ 10:35] 4.6 20 0.80 AST: 19 / ALT: 14 / AlkPhos: 166 / Bili: 0.7 / Prot: 8.8 / Alb: 1.4 [03/02 @ 10:35] WBC: 26.63 / Hb: 12.7 / Hct: 38.8 / Plt: 391 [03/02 @ 10:34] -- Diff: N:69% L:16% Mo:9% Eo:0% Baso:0% Assessment and plan: 1. Uncontrolled Type 2 DM secondary to hyperglycemia: -A1c pending -Current Home Regimen: none (last dose of insulin picked up on 11/08/18, U500 last picked up in May 2018) -12/5 - 10am BG 81 (no correction insulin given) PLAN (orders entered): -will use insulin naive weight based dosing ~0.3u/kg/day -Lantus 10 units daily -Humalog 3 units TID with meals -Decrease Humalog correction to 1:50>150 -Continue FSBG of Ac/HS and 0300 -Continue CC2, Cardiac diet -Endocrine / Diabetes will continue to follow daily. Discharge planning: -pt would like to follow-up with [facility] and we will help make appointment closer to discharge. Please Voalte Eusebio Torres APRN during M-F, 8a-5p. For after-hour, weekends, or holidays please page the on-call Endocrine Fellow. Attending Attestation Statement: Signature Only. Electronic Signatures: Eusebio Torres APRN (Nurse Practitioner) (Signed 02-Mar-19 15:39) Authored: CONSULTATION SERVICE, EVALUATION Vikas Guillen MD (Attending) (Signed 06-Mar-19 12:29) Authored: CRITICAL CARE CHARGING STATEMENT/ATTENDING ATTESTATION Co-Signer: EVALUATION Last Updated: 06-Mar-19 12:29 by Wilmer DACOSTA, Vikas Rosenberg (Attending) documented in this encounter Plan of Treatment Upcoming Encounters Date Type Department Care Team (Late st Contact Info) Description 03/07/2024 1:40 PM EST Office Visit [facility] [address], [address] [place] [address] Naeem Blunt MD [address] [place] [address] documented as of this encounter Procedures Procedure Name Priority Date/Time Associated Diagnosis Comments GLUCOSE POINT OF CARE DC Routine 03/10/2019 11:46 AM EST GLUCOSE POINT OF CARE DC Routine 03/10/2019 8:09 AM EST GLUCOSE POINT OF CARE DC Routine 03/09/2019 10:12 PM EST GLUCOSE POINT OF CARE DC Routine 03/09/2019 3:34 PM EST GLUCOSE POINT OF CARE DC Routine 03/09/2019 12:13 PM EST GLUCOSE POINT OF CARE DC Routine 03/09/2019 8:20 AM EST WBC DIFFERENTIAL Routine 03/09/2019 4:06 AM EST CBC W/O DIFFERENTIAL Routine 03/09/2019 4:06 AM EST PHOSPHORUS, PLASMA Routine 03/09/2019 4: 06 AM EST MAGNESIUM, PLASMA Routine 03/09/2019 4:0 6 AM EST BASIC METABOLIC PANEL, PLASMA Routine 03/09/2019 4:06 AM EST GLUCOSE POINT OF CARE DC Routine 03/08/2019 8:55 PM EST GLUCOSE POINT OF CARE DC Routine 03/08/2019 3:25 PM EST GLUCOSE POINT OF CARE DC Routine 03/08/2019 11:09 AM EST SURGPATH DATA CONVERSION Routine 03/08/2019 10:23 AM EST GLUCOSE POINT OF CARE DC Routine 03/08/2019 10:22 AM EST GLUCOSE POINT OF CARE DC Routine 03/08/2019 6:24 AM EST WBC DIFFERENTIAL Routine 03/08/2019 4:00 AM EST CBC W/O DIFFERENTIAL Routine 03/08/2019 4:00 AM EST PHOSPHORUS, PLASMA Routine 03/08/2019 4: 00 AM EST MAGNESIUM, PLASMA Routine 03/08/2019 4:0 0 AM EST BASIC METABOLIC PANEL, PLASMA Routine 03/08/2019 4:00 AM EST GLUCOSE POINT OF CARE DC Routine 03/07/2019 8:35 PM EST GLUCOSE POINT OF CARE DC Routine 03/07/2019 3:45 PM EST GLUCOSE POINT OF CARE DC Routine 03/07/2019 2:11 PM EST GLUCOSE POINT OF CARE DC Routine 03/07/2019 11:45 AM EST GLUCOSE POINT OF CARE DC Routine 03/07/2019 7:53 AM EST CBC W/O DIFFERENTIAL Routine 03/07/2019 3:35 AM EST BASIC METABOLIC PANEL, PLASMA Routine 03/07/2019 3:35 AM EST ECG ADULT 03/07/2019 GLUCOSE POINT OF CARE DC Routine 03/06/2019 8:22 PM EST GLUCOSE POINT OF CARE DC Routine 03/06/2019 3:44 PM EST VANCOMYCIN, PEAK, PLASMA Timed 03/06/2019 1:25 PM EST GLUCOSE POINT OF CARE DC Routine 03/06/2019 11:48 AM EST BLOOD CULTURE (AEROBIC/ANAEROBIC SET) Routine 03/06/2019 10:58 AM EST VANCOMYCIN, TROUGH, PLASMA Timed 03/06/2019 10:09 AM EST GLUCOSE POINT OF CARE DC Routine 03/06/2019 8:04 AM EST SODIUM, URINE, RANDOM Routine 03/06/2019 6:05 AM EST OSMOLALITY, URINE Routine 03/06/2019 6:0 5 AM EST OSMOLALITY, URINE Routine 03/06/2019 6:0 5 AM EST CREATININE, RANDOM URINE Routine 03/06/2019 6:05 AM EST BLOOD CULTURE (AEROBIC/ANAEROBIC SET) Routine 03/06/2019 3:08 AM EST CBC W/O DIFFERENTIAL Routine 03/06/2019 3:08 AM EST PHOSPHORUS, PLASMA Routine 03/06/2019 3: 08 AM EST BASIC METABOLIC PANEL, PLASMA Routine 03/06/2019 3:08 AM EST GLUCOSE POINT OF CARE DC Routine 03/05/2019 8:50 PM EST GLUCOSE POINT OF CARE DC Routine 03/05/2019 4:38 PM EST GLUCOSE POINT OF CARE DC Routine 03/05/2019 2:46 PM EST GRAM STAIN, ABSCESS Routine 03/05/2019 2 :20 PM EST GRAM STAIN, ABSCESS Routine 03/05/2019 2 :20 PM EST ZZ02 Routine 03/05/2019 2:20 PM EST SUSCEPTIBILITY EACH Routine 03/05/2019 2 :20 PM EST ANAEROBIC CULTURE Routine 03/05/2019 2:2 0 PM EST ANAEROBIC CULTURE Routine 03/05/2019 2:2 0 PM EST GLUCOSE POINT OF CARE DC Routine 03/05/2019 1:04 PM EST GLUCOSE POINT OF CARE DC Routine 03/05/2019 12:13 PM EST GLUCOSE POINT OF CARE DC Routine 03/05/2019 8:12 AM EST GLUCOSE POINT OF CARE DC Routine 03/04/2019 8:52 PM EST GLUCOSE POINT OF CARE DC Routine 03/04/2019 4:50 PM EST GLUCOSE POINT OF CARE DC Routine 03/04/2019 12:18 PM EST GLUCOSE POINT OF CARE DC Routine 03/04/2019 8:05 AM EST PROTHROMBIN TIME(PT) / INR Routine 03/04/2019 4:17 AM EST CBC W/O DIFFERENTIAL Routine 03/04/2019 4:17 AM EST BASIC METABOLIC PANEL, PLASMA Routine 03/04/2019 4:17 AM EST GLUCOSE POINT OF CARE DC Routine 03/03/2019 8:50 PM EST GLUCOSE POINT OF CARE DC Routine 03/03/2019 4:12 PM EST ARTERIAL LOWER EXT SEG JAILYN/WFS HISTORICAL Routine 03/03/2019 1:36 PM EST GLUCOSE POINT OF CARE DC Routine 03/03/2019 11:53 AM EST GRAM POSITIVE BACTERIAL PANEL BY PCR Routine 03/03/2019 9:15 AM EST ZZ01 Routine 03/03/2019 9:15 AM EST GLUCOSE POINT OF CARE DC Routine 03/03/2019 7:46 AM EST WBC DIFFERENTIAL Routine 03/03/2019 4:19 AM EST CBC W/O DIFFERENTIAL Routine 03/03/2019 4:19 AM EST PHOSPHORUS, PLASMA Routine 03/03/2019 4: 19 AM EST OSMOLALITY, SERUM Routine 03/03/2019 4:1 9 AM EST MAGNESIUM, PLASMA Routine 03/03/2019 4:1 9 AM EST BASIC METABOLIC PANEL, PLASMA Routine 03/03/2019 4:19 AM EST GLUCOSE POINT OF CARE DC Routine 03/03/2019 3:12 AM EST GLUCOSE POINT OF CARE DC Routine 03/02/2019 7:11 PM EST GLUCOSE POINT OF CARE DC Routine 03/02/2019 4:58 PM EST SODIUM, URINE, RANDOM Routine 03/02/2019 4:39 PM EST XR TIBIA FIBULA LEFT 2+ VIEWS Routine 03/02/2019 3:[address] LOWER EXTREMITY LEFT W IV CONTRAST HISTORICAL Routine 03/02/2019 2:[address] ANGIO ABDOMEN PELVIS W RUNOFF Routine 03/02/2019 2:28 PM EST VAS US VENOUS DUPLEX LOWER EXTREMITY UNILATERAL Routine 03/02/2019 12:55 PM EST EXTRA TUBES Routine 03/02/2019 10:41 AM EST HEPATITIS C ANTIBODY - ED W/REFLEX TO HCV QUANT PCR Routine 03/02/2019 10:35 AM EST PHOSPHORUS, PLASMA STAT 03/02/2019 10 :35 AM EST MAGNESIUM, PLASMA STAT 03/02/2019 10: 35 AM EST HEMOGLOBIN A1C STAT 03/02/2019 10:35 AM EST COMPREHENSIVE METABOLIC PANEL, PLASMA STAT 03/02/2019 10:35 AM EST LACTATE, VENOUS STAT 03/02/2019 10:34 AM EST WBC DIFFERENTIAL STAT 03/02/2019 10:3 4 AM EST CBC W/O DIFFERENTIAL STAT 03/02/2019 10:34 AM EST GLUCOSE POINT OF CARE DC Routine 03/02/2019 10:07 AM EST documented in this encounter Results * (ABNORMAL) Glucose Point of Care. (03/10/2019 11:46 AM EST) [facility] POCT Glucose 169(H) 74 - 99 mg/dL SUNQUEST Comment: Accuracy of a glucose result obtained from a capillary whole blood specimen relies upon adequate, non-compromised capillary blood flow.If the capillary glucose result is not consistent with the patient's clinical signs and symptoms, glucose testing should be repeated with either an arterial or venous sample on the glucometer or sent to the main laboratory for testing. SPEC TYPE Capillary SUNQUEST 03/10/2019 11:4 6 AM EST 03/10/2019 11:50 AM EST us Ilan Hickey MD LAB BLOOD ORDERABL ES Final Result Performing Organization Address [facility] Phone Number SUNQUEST * (ABNORMAL) Glucose Point of Care. (03/10/2019 8:09 AM EST) POCT Glucose 124(H) 74 - 99 mg/dL SUNQUEST Comment: Accuracy of a glucose result obtained from a capillary whole blood specimen relies upon adequate, non-compromised capillary blood flow.If the capillary glucose result is not consistent with the patient's clinical signs and symptoms, glucose testing should be repeated with either an arterial or venous sample on the glucometer or sent to the main laboratory for testing. SPEC TYPE Capillary SUNQUEST 03/10/2019 8:09 AM EST 03/10/2019 8:10 AM EST us Ilan Hickey MD LAB BLOOD ORDERABL ES Final Result Performing Organization Address [facility] Phone Number SUNQUEST * Glucose Point of Care. (03/09/2019 10:12 PM EST) [facility] POCT Glucose 93 74 - 99 mg/dL SUNQUEST Comment: Accuracy of a glucose result obtained from a capillary whole blood specimen relies upon adequate, non-compromised capillary blood flow.If the capillary glucose result is not consistent with the patient's clinical signs and symptoms, glucose testing should be repeated with either an arterial or venous sample on the glucometer or sent to the main laboratory for testing. SPEC TYPE Capillary SUNQUEST 03/09/2019 10:1 2 PM EST 03/09/2019 10:20 PM EST us Ilan Hickey MD LAB BLOOD ORDERABL ES Final Result Performing Organization Address [facility] de Phone Number SUNQUEST * (ABNORMAL) Glucose Point of Care. (03/09/2019 3:34 PM EST) POCT Glucose 172(H) 74 - 99 mg/dL SUNQUEST Comment: Accuracy of a glucose result obtained from a capillary whole blood specimen relies upon adequate, non-compromised capillary blood flow.If the capillary glucose result is not consistent with the patient's clinical signs and symptoms, glucose testing should be repeated with either an arterial or venous sample on the glucometer or sent to the main laboratory for testing. SPEC TYPE Capillary SUNQUEST 03/09/2019 3:34 PM EST 03/09/2019 3:40 PM EST Result [facility] Ilan Hickey MD LAB BLOOD ORDERABL ES Final Result Performing Organization Address [facility] Phone Number SUNQUEST * (ABNORMAL) Glucose Point of Care. (03/09/2019 12:13 PM EST) POCT Glucose 207(H) 74 - 99 mg/dL SUNQUEST Comment: Accuracy of a glucose result obtained from a capillary whole blood specimen relies upon adequate, non-compromised capillary blood flow.If the capillary glucose result is not consistent with the patient's clinical signs and symptoms, glucose testing should be repeated with either an arterial or venous sample on the glucometer or sent to the main laboratory for testing. SPEC TYPE Capillary SUNQUEST 03/09/2019 12:1 3 PM EST 03/09/2019 12:15 PM EST Result Counts Include [facility] us Ilan Hickey MD LAB BLOOD ORDERABL ES Final Result Performing Organization Address [facility] Phone Number SUNQUEST * (ABNORMAL) Glucose Point of Care. (03/09/2019 8:20 AM EST) POCT Glucose 221(H) 74 - 99 mg/dL SUNQUEST Comment: Accuracy of a glucose result obtained from a capillary whole blood specimen relies upon adequate, non-compromised capillary blood flow.If the capillary glucose result is not consistent with the patient's clinical signs and symptoms, glucose testing should be repeated with either an arterial or venous sample on the glucometer or sent to the main laboratory for testing. SPEC TYPE Capillary SUNQUEST 03/09/2019 8:20 AM EST 03/09/2019 8:25 AM EST Ilan Hickey MD LAB BLOOD ORDERABL ES Final Result SUNQUEST * Phosphorus, Plasma (03/09/2019 4:06 AM EST) Phosphorus, Plasma 2.8 2.5 - 4.5 mg/dL SUNQUEST 03/09/2019 4:06 AM EST 03/09/2019 4:19 AM EST Ilan Hickey MD LAB BLOOD ORDERABL ES Final Result SUNQUEST * Magnesium, Plasma (03/09/2019 4:06 AM EST) Magnesium, Plasma 1.9 1.9 - 2.4 mg/dL SUNQUEST 03/09/2019 4:06 AM EST 03/09/2019 4:19 AM EST Ilan Hickey MD LAB BLOOD ORDERABL ES Final Result SUNQUEST * (ABNORMAL) Basic Metabolic Panel, Plasma (03/09/2019 4:06 AM EST) Glucose, Plasma 275(H) 74 - 99 mg/dL SUNQUEST BUN, Plasma 9 7 - 21 mg/dL SUNQUEST Creatinine, Plasma 0.49(L) 0.80 - 1.30 mg/dL SUNQUEST BUN/Creatinine Ratio 18 8 - 20 SUNQUEST Sodium, Plasma 133(L) 136 - 145 mmol/L SUNQUEST Potassium, Plasma 4.0 3.7 - 4.8 mmol/L SUNQUEST Chloride, Plasma 99 97 - 107 mmol/L SUNQUEST CO2, Plasma 27 22 - 29 mmol/L SUNQUEST Anion Gap 7 6 - 16 mmol/L SUNQUEST Calcium, Plasma 7.5(L) 8.9 - 10.2 mg/dL SUNQUEST eGFR >60 >60 SEE NOTE SUNQUEST eGFR, if AFR/AM >60 >60 SEE NOTE SUNQUEST Comment: (NOTE) eGFR = estimated GFR; eGFR units = mL/min/1.73 sq meters Chronic Kidney Disease is considered if eGFR <60 mL/min/1.73 sq meters Kidney failure is considered if eGFR is <15 mL/min/1.73 sq meters. eGFR assumes steady state plasma creatinine concentration; not applicable if renal function is rapidly changing or patient is on dialysis. 03/09/2019 4:06 AM EST 03/09/2019 4:19 AM EST us Ilan Hickey MD LAB BLOOD ORDERABL ES Final Result SUNQUEST * (ABNORMAL) CBC W/O Differential (03/09/2019 4:06 AM EST) WBC Count 6.70 3.7 - 10.3 k/uL SUNQUEST RBC Count 3.17(L) 4.6 - 6.1 M/uL SUNQUEST HGB 8.9(L) 13.7 - 17.5 g/dL SUNQUEST HCT 27.7(L) 40 - 51 % SUNQUEST Platelet Count 308 155 - 369 k/uL SUNQUEST MCV 87 79 - 98 fL SUNQUEST MCH 28.1 26 - 32 pg SUNQUEST MCHC 32.1 30.7 - 35.5 g/dL SUNQUEST RDW 13.2 12.4 - 14.9 % SUNQUEST MPV 9.3 8.8 - 12.5 fL SUNQUEST NRBC COUNT 0.3(H) 0 % SUNQUEST 03/09/2019 4:06 AM EST 03/09/2019 4:18 AM EST Ilan iHckey MD LAB BLOOD ORDERABL ES Final Result SUNQUEST * (ABNORMAL) WBC Differential (03/09/2019 4:06 AM EST) Differential Type AUTOMATED SUNQUEST Neutrophils % 58 % SUNQUEST Lymphocytes 30 % SUNQUEST Monocytes 9 % SUNQUEST Eosinophils 0 % SUNQUEST Basophils 0 % SUNQUEST Immature Granulocytes % 3 % SUNQUEST ABS Neutrophil 3.85 1.6 - 6.1 k/uL SUNQUEST ABS Lymphocyte 2.03 1.2 - 3.9 k/uL SUNQUEST ABS Monocyte 0.63 0.3 - 0.9 k/uL SUNQUEST ABS Eosinophil 0.01 0 - 0.5 k/uL SUNQUEST ABS Basophil 0.01 0 - 0.1 k/uL SUNQUEST Immature Granulocyte Absolute 0.17(H) 0 - 0.06 k/uL SUNQUEST 03/09/2019 4:06 AM EST 03/09/2019 4:18 AM EST Narrative SUNQUEST - 03/09/2019 4:26 AM EST Therapeutic decision making should be based on absolute values, rather than percentages. Therapeutic decision making should be based on absolute values, rather than percentages. Therapeutic decision making should be based on absolute values, rather than percentages. Therapeutic decision making should be based on absolute values, rather than percentages. Ilan Hickey MD LAB BLOOD ORDERABL ES Final Result Performing Organization Address [facility] de Phone Number SUNQUEST * (ABNORMAL) Glucose Point of Care. (03/08/2019 8:55 PM EST) Pathologist [facility] POCT Glucose 203(H) 74 - 99 mg/dL SUNQUEST Comment: Accuracy of a glucose result obtained from a capillary whole blood specimen relies upon adequate, non-compromised capillary blood flow.If the capillary glucose result is not consistent with the patient's clinical signs and symptoms, glucose testing should be repeated with either an arterial or venous sample on the glucometer or sent to the main laboratory for testing. SPEC TYPE Capillary SUNQUEST 03/08/2019 8:55 PM EST 03/08/2019 9:00 PM EST Ilan Hickey MD LAB BLOOD ORDERABL ES Final Result Performing Organization Address [facility] de Phone Number SUNQUEST * (ABNORMAL) Glucose Point of Care. (03/08/2019 3:25 PM EST) Pathologist [facility] POCT Glucose 154(H) 74 - 99 mg/dL SUNQUEST Comment: Accuracy of a glucose result obtained from a capillary whole blood specimen relies upon adequate, non-compromised capillary blood flow.If the capillary glucose result is not consistent with the patient's clinical signs and symptoms, glucose testing should be repeated with either an arterial or venous sample on the glucometer or sent to the main laboratory for testing. SPEC TYPE Capillary SUNQUEST 03/08/2019 3:25 PM EST 03/08/2019 3:30 PM EST us Ilan Hickye MD LAB BLOOD ORDERABL ES Final Result Performing Organization Address City/[facility] de Phone Number VLADIMIR * (ABNORMAL) Glucose Point of Care. (03/08/2019 11:09 AM EST) POCT Glucose 102(H) 74 - 99 mg/dL SUNQUEST Comment: Accuracy of a glucose result obtained from a capillary whole blood specimen relies upon adequate, non-compromised capillary blood flow.If the capillary glucose result is not consistent with the patient's clinical signs and symptoms, glucose testing should be repeated with either an arterial or venous sample on the glucometer or sent to the main laboratory for testing. SPEC TYPE Capillary SUNQUEST 03/08/2019 11:0 9 AM EST 03/08/2019 11:10 AM EST us Ilan Hickey MD LAB BLOOD ORDERABL ES Final Result Performing Organization Address [facility] de Phone Number VLADIMIR * Surgical Pathology (03/08/2019 10:23 AM EST) 03/08/2019 10:2 3 AM EST 03/08/2019 10:23 AM EST Narrative SUNQUEST - 03/14/2019 6:15 PM EST [place], [place] [address] MR #: [id number] ROBERT HURLEY 1965 (Age: 53) ??MW Collect Date: 03/08/2019 10:23 Receipt Date: 03/08/2019 10:23 Page 1 DEPARTMENT OF PATHOLOGY AND LABORATORY MEDICINE SURGICAL PATHOLOGY REPORT Fax: ??[phone] ?[phone] Email: [email or web address] ? ATTENDING MD: Denise Ortiz M.D. ? Service: M9 ? [facility] OTHER MD(S): ?Reported: 03/14/2019 18:15 DIAGNOSIS Left leg, above-knee amputation: ? Ischemic and suppurative soft-tissue necrosis; subjacent osteomyelitis ? Electronically Signed Out ? dw/03/09/2019 Misti Fisher M.D. ?? CLINICAL HISTORY Preoperative diagnoses left lower extremity diabetic wound Intraoperative findings same Operative procedure [id number]-knee amputation left lower extremity ??I&D, possible left above knee amputation DESCRIPTION OF SPECIMEN: A: ??Left leg GROSS DESCRIPTION <<<<< Received fresh and labeled with the patient's name and date of and as left leg and consists of (lower portion of thigh and knee joint with the femur exposed and the lower leg and feet with five digits on). The specimen measures extremity 1 cm from superior to inferior by 10 cm from medial to lateral by 26 cm from anterior to posterior. There is a 13 x 6 cm gaping wound along the lateral aspect of the lower leg with fibrinopurulent discharge and possible necrotic dark and soft tissue and muscle underneath with bone exposed partially. The skin and soft tissue at the resection margin grossly viable. The rest of the leg is purple wesley edematous on the dorsal aspect of the foot. The posterior and anterior compartments vasculature were patent on dissection. Washery Boss sections submitted as follows: Cassette summary: A1: Skin and soft tissue margin A2: Vascular margin A3-A4: Washery Boss of the wound with underlying necrotic tissue and muscle A5: Washery Boss of the anterior compartment the vasculature A6: Washery Boss of posterior compartment vasculature A7: Bone marrow margin for decal A8: Bone underlying the wound >>>>> Amadou Olivera MD ( RES ) A resident may have participated in this service. ??A pathologist has performed and is responsible for the reported pathologic evaluation. 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 Type 2 diabetes mellitus with other specified complication SNOMED CODES: A; G33167 [id number] F: A; 00227, S 67070 DECAL Carson Ortiz MD LAB PATHOLOGY ORDERABLES Final Result Performing Organization Address City/[facility] Co de Phone Number SUNQUEST * Glucose Point of Care. (03/08/2019 10:22 AM EST) POCT Glucose 91 74 - 99 mg/dL SUNQUEST Comment: Accuracy of a glucose result obtained from a capillary whole blood specimen relies upon adequate, non-compromised capillary blood flow.If the capillary glucose result is not consistent with the patient's clinical signs and symptoms, glucose testing should be repeated with either an arterial or venous sample on the glucometer or sent to the main laboratory for testing. SPEC TYPE Capillary SUNQUEST 03/08/2019 10:2 2 AM EST 03/08/2019 10:25 AM EST Ilan Hickey MD LAB BLOOD ORDERABL ES Final Result Performing Organization Address [facility] de Phone Number SUNQUEST * (ABNORMAL) Glucose Point of Care. (03/08/2019 6:24 AM EST) POCT Glucose 211(H) 74 - 99 mg/dL SUNQUEST Comment: Accuracy of a glucose result obtained from a capillary whole blood specimen relies upon adequate, non-compromised capillary blood flow.If the capillary glucose result is not consistent with the patient's clinical signs and symptoms, glucose testing should be repeated with either an arterial or venous sample on the glucometer or sent to the main laboratory for testing. SPEC TYPE Capillary SUNQUEST 03/08/2019 6:24 AM EST 03/08/2019 6:30 AM EST Ilan Hickey MD LAB BLOOD ORDERABL ES Final Result Performing Organization Address City/[facility] Co de Phone Number SUNQUEST * Phosphorus, Plasma (03/08/2019 4:00 AM EST) Phosphorus, Plasma 2.7 2.5 - 4.5 mg/dL SUNQUEST 03/08/2019 4:00 AM EST 03/08/2019 4:44 AM EST us Ilan Hickey MD LAB BLOOD ORDERABL ES Final Result Performing Organization Address [facility] de Phone Number SUNQUEST * (ABNORMAL) Magnesium, Plasma (03/08/2019 4:00 AM EST) Magnesium, Plasma 1.6(L) 1.9 - 2.4 mg/dL SUNQUEST 03/08/2019 4:00 AM EST 03/08/2019 4:44 AM EST Ilan Hickey MD LAB BLOOD ORDERABL ES Final Result Performing Organization Address [facility] de Phone Number SUNQUEST * (ABNORMAL) Basic Metabolic Panel, Plasma (03/08/2019 4:00 AM EST) Glucose, Plasma 75 74 - 99 mg/dL SUNQUEST BUN, Plasma 11 7 - 21 mg/dL SUNQUEST Creatinine, Plasma 0.44(L) 0.80 - 1.30 mg/dL SUNQUEST BUN/Creatinine Ratio 25(H) 8 - 20 SUNQUEST Sodium, Plasma 132(L) 136 - 145 mmol/L SUNQUEST Potassium, Plasma 3.8 3.7 - 4.8 mmol/L SUNQUEST Chloride, Plasma 98 97 - 107 mmol/L SUNQUEST CO2, Plasma 28 22 - 29 mmol/L SUNQUEST Anion Gap 6 6 - 16 mmol/L SUNQUEST Calcium, Plasma 7.7(L) 8.9 - 10.2 mg/dL SUNQUEST eGFR >60 >60 SEE NOTE SUNQUEST eGFR, if AFR/AM >60 >60 SEE NOTE SUNQUEST Comment: (NOTE) eGFR = estimated GFR; eGFR units = mL/min/1.73 sq meters Chronic Kidney Disease is considered if eGFR <60 mL/min/1.73 sq meters Kidney failure is considered if eGFR is <15 mL/min/1.73 sq meters. eGFR assumes steady state plasma creatinine concentration; not applicable if renal function is rapidly changing or patient is on dialysis. 03/08/2019 4:00 AM EST 03/08/2019 4:44 AM EST Ilan Hickey MD LAB BLOOD ORDERABL ES Final Result SUNQUEST * (ABNORMAL) CBC W/O Differential (03/08/2019 4:00 AM EST) WBC Count 11.01(H) 3.7 - 10.3 k/uL SUNQUEST RBC Count 3.23(L) 4.6 - 6.1 M/uL SUNQUEST HGB 9.0(L) 13.7 - 17.5 g/dL SUNQUEST HCT 27.4(L) 40 - 51 % SUNQUEST Platelet Count 292 155 - 369 k/uL SUNQUEST MCV 85 79 - 98 fL SUNQUEST MCH 27.9 26 - 32 pg SUNQUEST MCHC 32.8 30.7 - 35.5 g/dL SUNQUEST RDW 13.0 12.4 - 14.9 % SUNQUEST MPV 9.1 8.8 - 12.5 fL SUNQUEST NRBC COUNT 0.2(H) 0 % SUNQUEST 03/08/2019 4:00 AM EST 03/08/2019 4:44 AM EST Ilan Hickey MD LAB BLOOD ORDERABL ES Final Result Performing Organization Address [facility] de Phone Number SUNQUEST * (ABNORMAL) WBC Differential (03/08/2019 4:00 AM EST) Differential Type AUTOMATED SUNQUEST Neutrophils % 68 % SUNQUEST Lymphocytes 22 % SUNQUEST Monocytes 8 % SUNQUEST Eosinophils 0 % SUNQUEST Basophils 0 % SUNQUEST Immature Granulocytes % 2 % SUNQUEST ABS Neutrophil 7.46(H) 1.6 - 6.1 k/uL SUNQUEST ABS Lymphocyte 2.44 1.2 - 3.9 k/uL SUNQUEST ABS Monocyte 0.84 0.3 - 0.9 k/uL SUNQUEST ABS Eosinophil 0.04 0 - 0.5 k/uL SUNQUEST ABS Basophil 0.02 0 - 0.1 k/uL SUNQUEST Immature Granulocyte Absolute 0.21(H) 0 - 0.06 k/uL SUNQUEST 03/08/2019 4:00 AM EST 03/08/2019 4:44 AM EST Narrative SUNQUEST - 03/08/2019 5:07 AM EST Therapeutic decision making should be based on absolute values, rather than percentages. Therapeutic decision making should be based on absolute values, rather than percentages. Therapeutic decision making should be based on absolute values, rather than percentages. Therapeutic decision making should be based on absolute values, rather than percentages. Result [facility] Ilan Hickey MD LAB BLOOD ORDERABL ES Final Result Performing Organization Address [facility] Phone Number SUNQUEST * (ABNORMAL) Glucose Point of Care. (03/07/2019 8:35 PM EST) Pathologist [facility] POCT Glucose 167(H) 74 - 99 mg/dL SUNQUEST Comment: Accuracy of a glucose result obtained from a capillary whole blood specimen relies upon adequate, non-compromised capillary blood flow.If the capillary glucose result is not consistent with the patient's clinical signs and symptoms, glucose testing should be repeated with either an arterial or venous sample on the glucometer or sent to the main laboratory for testing. SPEC TYPE Capillary SUNQUEST 03/07/2019 8:35 PM EST 03/07/2019 8:40 PM EST Result [facility] Ilan Hickey MD LAB BLOOD ORDERABL ES Final Result Performing Organization Address [facility] Phone Number SUNQUEST * (ABNORMAL) Glucose Point of Care. (03/07/2019 3:45 PM EST) POCT Glucose 136(H) 74 - 99 mg/dL SUNQUEST Comment: Accuracy of a glucose result obtained from a capillary whole blood specimen relies upon adequate, non-compromised capillary blood flow.If the capillary glucose result is not consistent with the patient's clinical signs and symptoms, glucose testing should be repeated with either an arterial or venous sample on the glucometer or sent to the main laboratory for testing. SPEC TYPE Capillary SUNQUEST 03/07/2019 3:45 PM EST 03/07/2019 3:50 PM EST Result [facility] Ilan Hickey MD LAB BLOOD ORDERABL ES Final Result Performing Organization Address [facility] de Phone Number SUNQUEST * (ABNORMAL) Glucose Point of Care. (03/07/2019 2:11 PM EST) [facility] POCT Glucose 176(H) 74 - 99 mg/dL SUNQUEST Comment: Accuracy of a glucose result obtained from a capillary whole blood specimen relies upon adequate, non-compromised capillary blood flow.If the capillary glucose result is not consistent with the patient's clinical signs and symptoms, glucose testing should be repeated with either an arterial or venous sample on the glucometer or sent to the main laboratory for testing. SPEC TYPE Capillary SUNQUEST 03/07/2019 2:11 PM EST 03/07/2019 2:15 PM EST Ilan Hickey MD LAB BLOOD ORDERABL ES Final Result Performing Organization Address [facility] Phone Number SUNQUEST * (ABNORMAL) Glucose Point of Care. (03/07/2019 11:45 AM EST) [facility] POCT Glucose 209(H) 74 - 99 mg/dL SUNQUEST Comment: Accuracy of a glucose result obtained from a capillary whole blood specimen relies upon adequate, non-compromised capillary blood flow.If the capillary glucose result is not consistent with the patient's clinical signs and symptoms, glucose testing should be repeated with either an arterial or venous sample on the glucometer or sent to the main laboratory for testing. SPEC TYPE Capillary SUNQUEST 03/07/2019 11:4 5 AM EST 03/07/2019 11:55 AM EST Ilan Hickey MD LAB BLOOD ORDERABL ES Final Result Performing Organization Address [facility] de Phone Number SUNQUEST * (ABNORMAL) Glucose Point of Care. (03/07/2019 7:53 AM EST) [facility] POCT Glucose 197(H) 74 - 99 mg/dL SUNQUEST Comment: Accuracy of a glucose result obtained from a capillary whole blood specimen relies upon adequate, non-compromised capillary blood flow.If the capillary glucose result is not consistent with the patient's clinical signs and symptoms, glucose testing should be repeated with either an arterial or venous sample on the glucometer or sent to the main laboratory for testing. SPEC TYPE Capillary SUNQUEST 03/07/2019 7:53 AM EST 03/07/2019 8:15 AM EST Ilan Hickey MD LAB BLOOD ORDERABL ES Final Result Performing Organization Address City/[facility]/ZIP Co de Phone Number SUNQUEST * (ABNORMAL) Basic Metabolic Panel, Plasma (03/07/2019 3:35 AM EST) Glucose, Plasma 247(H) 74 - 99 mg/dL SUNQUEST BUN, Plasma 11 7 - 21 mg/dL SUNQUEST Creatinine, Plasma 0.49(L) 0.80 - 1.30 mg/dL SUNQUEST BUN/Creatinine Ratio 22(H) 8 - 20 SUNQUEST Sodium, Plasma 130(L) 136 - 145 mmol/L SUNQUEST Potassium, Plasma 3.9 3.7 - 4.8 mmol/L SUNQUEST Chloride, Plasma 98 97 - 107 mmol/L SUNQUEST CO2, Plasma 26 22 - 29 mmol/L SUNQUEST Anion Gap 6 6 - 16 mmol/L SUNQUEST Calcium, Plasma 7.8(L) 8.9 - 10.2 mg/dL SUNQUEST eGFR >60 >60 SEE NOTE SUNQUEST eGFR, if AFR/AM >60 >60 SEE NOTE SUNQUEST Comment: (NOTE) eGFR = estimated GFR; eGFR units = mL/min/1.73 sq meters Chronic Kidney Disease is considered if eGFR <60 mL/min/1.73 sq meters Kidney failure is considered if eGFR is <15 mL/min/1.73 sq meters. eGFR assumes steady state plasma creatinine concentration; not applicable if renal function is rapidly changing or patient is on dialysis. 03/07/2019 3:35 AM EST 03/07/2019 4:22 AM EST Arias Larson MD LAB BLOOD ORDERABLES Final Resul t Performing Organization Address City/[facility]/ZIP Co de Phone Number SUNQUEST * (ABNORMAL) CBC W/O Differential (03/07/2019 3:35 AM EST) WBC Count 12.69(H) 3.7 - 10.3 k/uL SUNQUEST RBC Count 3.07(L) 4.6 - 6.1 M/uL SUNQUEST HGB 8.5(L) 13.7 - 17.5 g/dL SUNQUEST HCT 26.5(L) 40 - 51 % SUNQUEST Platelet Count 251 155 - 369 k/uL SUNQUEST MCV 86 79 - 98 fL SUNQUEST MCH 27.7 26 - 32 pg SUNQUEST MCHC 32.1 30.7 - 35.5 g/dL SUNQUEST RDW 13.1 12.4 - 14.9 % SUNQUEST MPV 9.5 8.8 - 12.5 fL SUNQUEST NRBC COUNT 0.0 0 % SUNQUEST 03/07/2019 3:35 AM EST 03/07/2019 4:12 AM EST Arias Larson MD LAB BLOOD ORDERABLES Final Resul t Performing Organization Address City/[facility] Co de Phone Number SUNQUEST * ECG ADULT (03/07/2019) Narrative 03/07/2019 Ordered by an unspecified provider. Robinson Provider ECG ORDERABLES Final Res ult * (ABNORMAL) Glucose Point of Care. (03/06/2019 8:22 PM EST) Pathologist [facility] POCT Glucose 264(H) 74 - 99 mg/dL SUNQUEST Comment: Accuracy of a glucose result obtained from a capillary whole blood specimen relies upon adequate, non-compromised capillary blood flow.If the capillary glucose result is not consistent with the patient's clinical signs and symptoms, glucose testing should be repeated with either an arterial or venous sample on the glucometer or sent to the main laboratory for testing. SPEC TYPE Capillary SUNQUEST 03/06/2019 8:22 PM EST 03/06/2019 8:25 PM EST Ilan Hickey MD LAB BLOOD ORDERABL ES Final Result Performing Organization Address City/[facility]/ZIP Co de Phone Number SUNQUEST * (ABNORMAL) Glucose Point of Care. (03/06/2019 3:44 PM EST) [facility] POCT Glucose 284(H) 74 - 99 mg/dL SUNQUEST Comment: Accuracy of a glucose result obtained from a capillary whole blood specimen relies upon adequate, non-compromised capillary blood flow.If the capillary glucose result is not consistent with the patient's clinical signs and symptoms, glucose testing should be repeated with either an arterial or venous sample on the glucometer or sent to the main laboratory for testing. SPEC TYPE Capillary SUNQUEST 03/06/2019 3:44 PM EST 03/06/2019 3:50 PM EST Ilan Hickey MD LAB BLOOD ORDERABL ES Final Result Performing Organization Address [facility] Co de Phone Number SUNQUEST * Vancomycin, Peak, Plasma (03/06/2019 1:25 PM EST) [facility] Vancomycin, Peak, Plasma 23.8 20.0 - 40.0 ug/mL SUNQUEST Comment: Therapeutic Peak: ??20 to 40 ug/mL Supratherapeutic Peak: ??>40 ug/mL 03/06/2019 1:25 PM EST 03/06/2019 1:54 PM EST Arias Larson MD LAB BLOOD ORDERABLES Final Resul t Performing Organization Address City/[facility] Co de Phone Number SUNQUEST * (ABNORMAL) Glucose Point of Care. (03/06/2019 11:48 AM EST) [facility] POCT Glucose 305(H) 74 - 99 mg/dL SUNQUEST Comment: Accuracy of a glucose result obtained from a capillary whole blood specimen relies upon adequate, non-compromised capillary blood flow.If the capillary glucose result is not consistent with the patient's clinical signs and symptoms, glucose testing should be repeated with either an arterial or venous sample on the glucometer or sent to the main laboratory for testing. SPEC TYPE Capillary SUNQUEST 03/06/2019 11:4 8 AM EST 03/06/2019 11:50 AM EST lIan Hickey MD LAB BLOOD ORDERABL ES Final Result Performing Organization Address [facility] de Phone Number SUNQUEST * Blood Culture (Aerobic/Anaerobet Set) (03/06/2019 10:58 AM EST) 03/06/2019 10:5 8 AM EST 03/06/2019 11:11 AM EST Narrative SUNQUEST - 05/22/2020 9:19 PM EST SQ ACC. NUMBER ?[id number] SPECIMEN DESCRIPTION: ?PERIPHERAL BLOOD LEFT ARM SPECIAL REQUESTS: ?NONE CULTURE: ? NO GROWTH DAY 5. REPORT STATUS: ? FINAL 03/12/2019 Arias Larson MD LAB MICROBIOLOGY - GENERAL ORDER [place] Final Result Performing Organization Address [facility] de Phone Number SUNQUEST * Vancomycin, Trough, Plasma (03/06/2019 10:09 AM EST) Pathologist [facility] Vancomycin, Trough, Plasma 11.5 10.0 - 20.0 ug/mL SUNQUEST Comment: Therapeutic Trough: ??10 to 20 ug/mL Supratherapeutic Trough: ??>20 ug/mL 03/06/2019 10:0 9 AM EST 03/06/2019 10:40 AM EST Arias Larson MD LAB BLOOD ORDERABLES Final Resul t Performing Organization Address [facility] de Phone Number SUNQUEST * (ABNORMAL) Glucose Point of Care. (03/06/2019 8:04 AM EST) Pathologist [facility] POCT Glucose 237(H) 74 - 99 mg/dL SUNQUEST Comment: Accuracy of a glucose result obtained from a capillary whole blood specimen relies upon adequate, non-compromised capillary blood flow.If the capillary glucose result is not consistent with the patient's clinical signs and symptoms, glucose testing should be repeated with either an arterial or venous sample on the glucometer or sent to the main laboratory for testing. SPEC TYPE Capillary SUNQUEST 03/06/2019 8:04 AM EST 03/06/2019 8:15 AM EST us Ilan Hickey MD LAB BLOOD ORDERABL ES Final Result Performing Organization Address [facility] de Phone Number SUNQUEST * Osmolality, Urine (03/06/2019 6:05 AM EST) Osmolality, Urine Multiple SCM orders. Tests consolidated . 300 - 900 mOsm/kg SUNQUEST 03/06/2019 6:05 AM EST 03/06/2019 6:23 AM EST us Arias Larson MD LAB URINE ORDERABLES Final Resul t Performing Organization Address [facility] Phone Number SUNQUEST * Osmolality, Urine (03/06/2019 6:05 AM EST) Osmolality, Urine 475 300 - 900 mOsm/kg SUNQUEST 03/06/2019 6:05 AM EST 03/06/2019 6:23 AM EST us Arias Larson MD LAB URINE ORDERABLES Final Resul t Performing Organization Address [facility] de Phone Number SUNQUEST * Sodium, Random, Urine (03/06/2019 6:05 AM EST) Sodium, Urine <20 mmol/L SUNQUEST 03/06/2019 6:05 AM EST 03/06/2019 6:23 AM EST us Arias Larson MD LAB URINE ORDERABLES Final Resul t Performing Organization Address City/State/[facility] Co de Phone Number SUNQUEST * Creatinine, Random, Urine (03/06/2019 6:05 AM EST) Creatinine, Random U 56 mg/dL SUNQUEST 03/06/2019 6:05 AM EST 03/06/2019 6:23 AM EST Arias Larson MD LAB URINE ORDERABLES Final Resul t Performing Organization Address City/[facility] Co de Phone Number SUNQUEST * (ABNORMAL) Phosphorus, Plasma (03/06/2019 3:08 AM EST) Phosphorus, Plasma 2.4(L) 2.5 - 4.5 mg/dL SUNQUEST 03/06/2019 3:08 AM EST 03/06/2019 3:40 AM EST Arias Larson MD LAB BLOOD ORDERABLES Final Resul t Performing Organization Address City/[facility] Co de Phone Number SUNQUEST * (ABNORMAL) Basic Metabolic Panel, Plasma (03/06/2019 3:08 AM EST) Glucose, Plasma 250(H) 74 - 99 mg/dL SUNQUEST BUN, Plasma 16 7 - 21 mg/dL SUNQUEST Creatinine, Plasma 0.60(L) 0.80 - 1.30 mg/dL SUNQUEST BUN/Creatinine Ratio 27(H) 8 - 20 SUNQUEST Sodium, Plasma 131(L) 136 - 145 mmol/L SUNQUEST Potassium, Plasma 4.4 3.7 - 4.8 mmol/L SUNQUEST Chloride, Plasma 96(L) 97 - 107 mmol/L SUNQUEST CO2, Plasma 26 22 - 29 mmol/L SUNQUEST Anion Gap 9 6 - 16 mmol/L SUNQUEST Calcium, Plasma 8.3(L) 8.9 - 10.2 mg/dL SUNQUEST eGFR >60 >60 SEE NOTE SUNQUEST eGFR, if AFR/AM >60 >60 SEE NOTE SUNQUEST Comment: (NOTE) eGFR = estimated GFR; eGFR units = mL/min/1.73 sq meters Chronic Kidney Disease is considered if eGFR <60 mL/min/1.73 sq meters Kidney failure is considered if eGFR is <15 mL/min/1.73 sq meters. eGFR assumes steady state plasma creatinine concentration; not applicable if renal function is rapidly changing or patient is on dialysis. 03/06/2019 3:08 AM EST 03/06/2019 3:40 AM EST Arias Larson MD LAB BLOOD ORDERABLES Final Resul t Performing Organization Address [facility] de Phone Number SUNQUEST * (ABNORMAL) CBC W/O Differential (03/06/2019 3:08 AM EST) WBC Count 16.94(H) 3.7 - 10.3 k/uL SUNQUEST RBC Count 3.40(L) 4.6 - 6.1 M/uL SUNQUEST HGB 9.5(L) 13.7 - 17.5 g/dL SUNQUEST HCT 29.5(L) 40 - 51 % SUNQUEST Platelet Count 260 155 - 369 k/uL SUNQUEST MCV 87 79 - 98 fL SUNQUEST MCH 27.9 26 - 32 pg SUNQUEST MCHC 32.2 30.7 - 35.5 g/dL SUNQUEST RDW 13.1 12.4 - 14.9 % SUNQUEST MPV 9.5 8.8 - 12.5 fL SUNQUEST NRBC COUNT 0.0 0 % SUNQUEST 03/06/2019 3:08 AM EST 03/06/2019 3:39 AM EST Arias Larson MD LAB BLOOD ORDERABLES Final Resul t Performing Organization Address [facility] de Phone Number SUNQUEST * Blood Culture (Aerobic/Anaerobet Set) (03/06/2019 3:08 AM EST) 03/06/2019 3:08 AM EST 03/06/2019 6:29 AM EST Narrative SUNQUEST - 05/22/2020 9:19 PM EST SQ ACC. NUMBER ?[id number] SPECIMEN DESCRIPTION: ?PERIPHERAL BLOOD SPECIAL REQUESTS: ?NONE CULTURE: ? NO GROWTH DAY 5. REPORT STATUS: ? FINAL 03/12/2019 Arias Larson MD LAB MICROBIOLOGY - GENERAL ORDER [place] Final Result Performing Organization Address [facility] Phone Number SUNQUEST * (ABNORMAL) Glucose Point of Care. (03/05/2019 8:50 PM EST) [facility] POCT Glucose 170(H) 74 - 99 mg/dL SUNQUEST Comment: Accuracy of a glucose result obtained from a capillary whole blood specimen relies upon adequate, non-compromised capillary blood flow.If the capillary glucose result is not consistent with the patient's clinical signs and symptoms, glucose testing should be repeated with either an arterial or venous sample on the glucometer or sent to the main laboratory for testing. SPEC TYPE Capillary SUNQUEST 03/05/2019 8:50 PM EST 03/05/2019 8:55 PM EST Ilan Hickey MD LAB BLOOD ORDERABL ES Final Result Performing Organization Address [facility] Phone Number SUNQUEST * (ABNORMAL) Glucose Point of Care. (03/05/2019 4:38 PM EST) [facility] POCT Glucose 314(H) 74 - 99 mg/dL SUNQUEST Comment: Accuracy of a glucose result obtained from a capillary whole blood specimen relies upon adequate, non-compromised capillary blood flow.If the capillary glucose result is not consistent with the patient's clinical signs and symptoms, glucose testing should be repeated with either an arterial or venous sample on the glucometer or sent to the main laboratory for testing. SPEC TYPE Capillary SUNQUEST 03/05/2019 4:38 PM EST 03/05/2019 4:55 PM EST Ilan Hickey MD LAB BLOOD ORDERABL ES Final Result Performing Organization Address [facility] de Phone Number SUNQUEST * (ABNORMAL) Glucose Point of Care. (03/05/2019 2:46 PM EST) [facility] POCT Glucose 242(H) 74 - 99 mg/dL SUNQUEST Comment: Accuracy of a glucose result obtained from a capillary whole blood specimen relies upon adequate, non-compromised capillary blood flow.If the capillary glucose result is not consistent with the patient's clinical signs and symptoms, glucose testing should be repeated with either an arterial or venous sample on the glucometer or sent to the main laboratory for testing. SPEC TYPE Capillary SUNQUEST 03/05/2019 2:46 PM EST 03/05/2019 2:50 PM EST Ilan Hickey MD LAB BLOOD ORDERABL ES Final Result Performing Organization Address [facility] de Phone Number SUNQUEST * Anaerobic Culture (03/05/2019 2:20 PM EST) 03/05/2019 2:20 PM EST 03/05/2019 4:52 PM EST Narrative SUNQUEST - 05/22/2020 9:19 PM EST SQ ACC. NUMBER ?[id number] SPECIMEN DESCRIPTION: ?ABSCESS LEFT LEG ??2 SPECIAL REQUESTS: ?NONE CULTURE: ? NO ANAEROBES ISOLATED REPORT STATUS: ? FINAL [id number] us Arias Larson MD LAB MICROBIOLOGY - GENERAL ORDER [place] Final Result Performing Organization Address [facility] de Phone Number SUNQUEST * Abscess Gram Stain (03/05/2019 2:20 PM EST) 03/05/2019 2:20 PM EST 03/05/2019 4:52 PM EST Narrative SUNQUEST - 05/22/2020 9:19 PM EST SQ ACC. NUMBER ?[id number] SPECIMEN DESCRIPTION: ?ABSCESS LEFT LEG ??2 SPECIAL REQUESTS: ?NONE GRAM STAIN ? NUMEROUS POLYMORPHONUCLEAR WHITE BLOOD CELLS ? NUMEROUS GRAM POSITIVE COCCI IN CLUSTERS REPORT STATUS: ? FINAL [id number] us Arias Larson MD LAB MICROBIOLOGY - GENERAL ORDER [place] Final Result SUNQUEST * Suceptibility Each (03/05/2019 2:20 PM EST) 03/05/2019 2:20 PM EST 03/05/2019 4:52 PM EST Narrative SUNQUEST - 05/22/2020 9:19 PM EST SQ ACC. NUMBER ?[id number] SPECIMEN DESCRIPTION: ?ABSCESS LEFT LEG ??2 SPECIAL REQUESTS: ?NONE QUANTITATION: ?HEAVY GROWTH CULTURE: ? STAPHYLOCOCCUS AUREUS , ??REFER TO ACCESSION ?NUMBER [id number] FOR SUSCEPTIBILITY ON ? STAPHYLOCOCCUS AUREUS (MRSA) ? NOTE: ??Patient needs MRSA Protocol REPORT STATUS: ? FINAL [id number] SQ ACC. NUMBER ?[id number] ORGANISM ? STAPHYLOCOCCUS AUREUS , ??REFER TO ACCESSION ?NUMBER [id number] FOR SUSCEPTIBILITY ON ? STAPHYLOCOCCUS AUREUS (MRSA) METHOD ? Billing Info: ??patient charged for serological ?identification of this isolate Arias Larson MD LAB MICROBIOLOGY - GENERAL ORDER [place] Final Result Performing Organization Address [facility] de Phone Number SUNQUEST * Anaerobic Culture (03/05/2019 2:20 PM EST) 03/05/2019 2:20 PM EST 03/05/2019 4:50 PM EST Narrative SUNQUEST - 05/22/2020 9:19 PM EST SQ ACC. NUMBER ?[id number] SPECIMEN DESCRIPTION: ?ABSCESS LEFT LEG ??1 SPECIAL REQUESTS: ?NONE CULTURE: ? NO ANAEROBES ISOLATED REPORT STATUS: ? FINAL [id number] Arias GARCIA MICROBIOLOGY - GENERAL ORDER [place] Final Result Performing Organization Address [facility] de Phone Number SUNQUEST * Abscess Gram Stain (03/05/2019 2:20 PM EST) 03/05/2019 2:20 PM EST 03/05/2019 4:50 PM EST Narrative SUNQUEST - 05/22/2020 9:19 PM EST SQ ACC. NUMBER ?[id number] SPECIMEN DESCRIPTION: ?ABSCESS LEFT LEG ??1 SPECIAL REQUESTS: ?NONE GRAM STAIN ? NUMEROUS GRAM POSITIVE COCCI IN CLUSTERS ? NUMEROUS POLYMORPHONUCLEAR WHITE BLOOD CELLS REPORT STATUS: ? FINAL [id number] us Arias Larson MD LAB MICROBIOLOGY - GENERAL ORDER [place] Final Result SUNQUEST * Suceptibility Each (03/05/2019 2:20 PM EST) 03/05/2019 2:20 PM EST 03/05/2019 4:50 PM EST Narrative SUNQUEST - 05/22/2020 9:19 PM EST SQ ACC. NUMBER ?[id number] SPECIMEN DESCRIPTION: ?ABSCESS LEFT LEG ??1 SPECIAL REQUESTS: ?NONE QUANTITATION: ?HEAVY GROWTH CULTURE: ? STAPHYLOCOCCUS AUREUS (MRSA) ? NOTE: ??Patient needs MRSA Protocol REPORT STATUS: ? FINAL [id number] SQ ACC. NUMBER ?[id number] ORGANISM ? STAPHYLOCOCCUS AUREUS (MRSA) METHOD ? Billing Info: ??patient charged for serological ?identification of this isolate SQ ACC. NUMBER ?[id number] ORGANISM ? STAPHYLOCOCCUS AUREUS (MRSA) METHOD ? MIKE (mcg/mL) AMPICILLIN ? RESISTANT CLINDAMYCIN ?RESISTANT ? This isolate is presumed to be RESISTANT to ?Clindamycin based on the detection of an ?inducible enzyme for Clindamycin resistance. DAPTOMYCIN ? <=1 SUSCEPTIBLE ERYTHROMYCIN ? >4 RESISTANT GENTAMICIN ? <=1 SUSCEPTIBLE LINEZOLID ?2 SUSCEPTIBLE MINOCYCLINE ?<=1 SUSCEPTIBLE OXACILLIN ?>2 RESISTANT PENICILLIN G ? >1 RESISTANT TETRACYCLINE ? <=0.5 SUSCEPTIBLE TRIMETHOPRIM/SULFAMETHOXAZOLE <=0.5/9.5 SUSCEPTIBLE VANCOMYCIN ? 1 SUSCEPTIBLE SQ ACC. NUMBER ?[id number] ORGANISM ? STAPHYLOCOCCUS AUREUS (MRSA) METHOD ? DENA VALLADARES us Arias Larson MD LAB MICROBIOLOGY - GENERAL ORDER [place] Final Result SUNQUEST * (ABNORMAL) Glucose Point of Care. (03/05/2019 1:04 PM EST) POCT Glucose 246(H) 74 - 99 mg/dL SUNQUEST Comment: Accuracy of a glucose result obtained from a capillary whole blood specimen relies upon adequate, non-compromised capillary blood flow.If the capillary glucose result is not consistent with the patient's clinical signs and symptoms, glucose testing should be repeated with either an arterial or venous sample on the glucometer or sent to the main laboratory for testing. SPEC TYPE Capillary SUNQUEST 03/05/2019 1:04 PM EST 03/05/2019 1:10 PM EST us Ilan Hickey MD LAB BLOOD ORDERABL ES Final Result Performing Organization Address [facility] de Phone Number SUNQUEST * (ABNORMAL) Glucose Point of Care. (03/05/2019 12:13 PM EST) Pathologist [facility] POCT Glucose 260(H) 74 - 99 mg/dL SUNQUEST Comment: Accuracy of a glucose result obtained from a capillary whole blood specimen relies upon adequate, non-compromised capillary blood flow.If the capillary glucose result is not consistent with the patient's clinical signs and symptoms, glucose testing should be repeated with either an arterial or venous sample on the glucometer or sent to the main laboratory for testing. SPEC TYPE Capillary SUNQUEST 03/05/2019 12:1 3 PM EST 03/05/2019 12:20 PM EST us Ilan Hickey MD LAB BLOOD ORDERABL ES Final Result Performing Organization Address [facility] de Phone Number SUNQUEST * (ABNORMAL) Glucose Point of Care. (03/05/2019 8:12 AM EST) POCT Glucose 276(H) 74 - 99 mg/dL SUNQUEST Comment: Accuracy of a glucose result obtained from a capillary whole blood specimen relies upon adequate, non-compromised capillary blood flow.If the capillary glucose result is not consistent with the patient's clinical signs and symptoms, glucose testing should be repeated with either an arterial or venous sample on the glucometer or sent to the main laboratory for testing. SPEC TYPE Capillary SUNQUEST 03/05/2019 8:12 AM EST 03/06/2019 6:00 AM EST Ilan Hickey MD LAB BLOOD ORDERABL ES Final Result Performing Organization Address [facility] Phone Number SUNQUEST * (ABNORMAL) Glucose Point of Care. (03/04/2019 8:52 PM EST) POCT Glucose 180(H) 74 - 99 mg/dL SUNQUEST Comment: Accuracy of a glucose result obtained from a capillary whole blood specimen relies upon adequate, non-compromised capillary blood flow.If the capillary glucose result is not consistent with the patient's clinical signs and symptoms, glucose testing should be repeated with either an arterial or venous sample on the glucometer or sent to the main laboratory for testing. SPEC TYPE Capillary SUNQUEST 03/04/2019 8:52 PM EST 03/04/2019 8:55 PM EST Ilan Hickey MD LAB BLOOD ORDERABL ES Final Result Performing Organization Address [facility] Phone Number SUNQUEST * (ABNORMAL) Glucose Point of Care. (03/04/2019 4:50 PM EST) Pathologist [facility] POCT Glucose 224(H) 74 - 99 mg/dL SUNQUEST Comment: Accuracy of a glucose result obtained from a capillary whole blood specimen relies upon adequate, non-compromised capillary blood flow.If the capillary glucose result is not consistent with the patient's clinical signs and symptoms, glucose testing should be repeated with either an arterial or venous sample on the glucometer or sent to the main laboratory for testing. SPEC TYPE Capillary SUNQUEST 03/04/2019 4:50 PM EST 03/04/2019 4:55 PM EST Ilan Hickey MD LAB BLOOD ORDERABL ES Final Result Performing Organization Address [facility] Phone Number SUNQUEST * (ABNORMAL) Glucose Point of Care. (03/04/2019 12:18 PM EST) POCT Glucose 234(H) 74 - 99 mg/dL SUNQUEST Comment: Accuracy of a glucose result obtained from a capillary whole blood specimen relies upon adequate, non-compromised capillary blood flow.If the capillary glucose result is not consistent with the patient's clinical signs and symptoms, glucose testing should be repeated with either an arterial or venous sample on the glucometer or sent to the main laboratory for testing. SPEC TYPE Capillary SUNQUEST 03/04/2019 12:1 8 PM EST 03/04/2019 12:20 PM EST Ilan Hickey MD LAB BLOOD ORDERABL ES Final Result Performing Organization Address [facility] de Phone Number SUNQUEST * (ABNORMAL) Glucose Point of Care. (03/04/2019 8:05 AM EST) Pathologist [facility] POCT Glucose 213(H) 74 - 99 mg/dL SUNQUEST Comment: Accuracy of a glucose result obtained from a capillary whole blood specimen relies upon adequate, non-compromised capillary blood flow.If the capillary glucose result is not consistent with the patient's clinical signs and symptoms, glucose testing should be repeated with either an arterial or venous sample on the glucometer or sent to the main laboratory for testing. SPEC TYPE Capillary SUNQUEST 03/04/2019 8:05 AM EST 03/04/2019 8:10 AM EST Ilan Hickey MD LAB BLOOD ORDERABL ES Final Result Performing Organization Address [facility] de Phone Number SUNQUEST * (ABNORMAL) Prothrombin Time/INR (03/04/2019 4:17 AM EST) Prothrombin Time 16.7(H) 11.9 - 14.4 sec SUNQUEST INR 1.3(H) 0.9 - 1.1 SUNQUEST Comment: (NOTE) OPTIMAL INR RANGES FOR PATIENT ON ORAL ANTICOAGULANT THERAPY Prevention of venous thromboembolism ?INR 2.0 to 3.0 In patients with heart disease: ?Atrial fibrillation ?INR 2.0 to 3.0 ?Valvular heart disease ? INR 2.0 to 3.0 ?Tissue heart valves ?INR 2.0 to 3.0 ?Mechanical prosthetic valves ? INR 2.5 to 3.5 ?Prevention of recurrent ME ? INR 2.5 to 3.5 03/04/2019 4:17 AM EST 03/04/2019 4:27 AM EST us Althea TREVIÑO LAB BLOOD ORDERABLES Final Resul t SUNQUEST * (ABNORMAL) Basic Metabolic Panel, Plasma (03/04/2019 4:17 AM EST) Glucose, Plasma 216(H) 74 - 99 mg/dL SUNQUEST BUN, Plasma 15 7 - 21 mg/dL SUNQUEST Creatinine, Plasma 0.54(L) 0.80 - 1.30 mg/dL SUNQUEST BUN/Creatinine Ratio 28(H) 8 - 20 SUNQUEST Sodium, Plasma 130(L) 136 - 145 mmol/L SUNQUEST Potassium, Plasma 3.6(L) 3.7 - 4.8 mmol/L SUNQUEST Chloride, Plasma 95(L) 97 - 107 mmol/L SUNQUEST CO2, Plasma 25 22 - 29 mmol/L SUNQUEST Anion Gap 10 6 - 16 mmol/L SUNQUEST Calcium, Plasma 8.1(L) 8.9 - 10.2 mg/dL SUNQUEST eGFR >60 >60 SEE NOTE SUNQUEST eGFR, if AFR/AM >60 >60 SEE NOTE SUNQUEST Comment: (NOTE) eGFR = estimated GFR; eGFR units = mL/min/1.73 sq meters Chronic Kidney Disease is considered if eGFR <60 mL/min/1.73 sq meters Kidney failure is considered if eGFR is <15 mL/min/1.73 sq meters. eGFR assumes steady state plasma creatinine concentration; not applicable if renal function is rapidly changing or patient is on dialysis. 03/04/2019 4:17 AM EST 03/04/2019 4:26 AM EST us Althea TREVIÑO LAB BLOOD ORDERABLES Final Resul t Performing Organization Address [facility] de Phone Number SUNQUEST * (ABNORMAL) CBC W/O Differential (03/04/2019 4:17 AM EST) WBC Count 21.69(H) 3.7 - 10.3 k/uL SUNQUEST RBC Count 3.87(L) 4.6 - 6.1 M/uL SUNQUEST HGB 11.0(L) 13.7 - 17.5 g/dL SUNQUEST HCT 32.6(L) 40 - 51 % SUNQUEST Platelet Count 267 155 - 369 k/uL SUNQUEST MCV 84 79 - 98 fL SUNQUEST MCH 28.4 26 - 32 pg SUNQUEST MCHC 33.7 30.7 - 35.5 g/dL SUNQUEST RDW 12.7 12.4 - 14.9 % SUNQUEST MPV 9.7 8.8 - 12.5 fL SUNQUEST NRBC COUNT 0.0 0 % SUNQUEST 03/04/2019 4:17 AM EST 03/04/2019 4:27 AM EST Althea Pinedo [place] LAB BLOOD ORDERABLES Final Resul t Performing Organization Address [facility] Phone Number SUNQUEST * (ABNORMAL) Glucose Point of Care. (03/03/2019 8:50 PM EST) Pathologist [facility] POCT Glucose 186(H) 74 - 99 mg/dL SUNQUEST Comment: Accuracy of a glucose result obtained from a capillary whole blood specimen relies upon adequate, non-compromised capillary blood flow.If the capillary glucose result is not consistent with the patient's clinical signs and symptoms, glucose testing should be repeated with either an arterial or venous sample on the glucometer or sent to the main laboratory for testing. SPEC TYPE Capillary SUNQUEST 03/03/2019 8:50 PM EST 03/03/2019 8:55 PM EST Ilan Hickey MD LAB BLOOD ORDERABL ES Final Result Performing Organization Address [facility] de Phone Number SUNQUEST * (ABNORMAL) Glucose Point of Care. (03/03/2019 4:12 PM EST) POCT Glucose 237(H) 74 - 99 mg/dL SUNQUEST Comment: Accuracy of a glucose result obtained from a capillary whole blood specimen relies upon adequate, non-compromised capillary blood flow.If the capillary glucose result is not consistent with the patient's clinical signs and symptoms, glucose testing should be repeated with either an arterial or venous sample on the glucometer or sent to the main laboratory for testing. SPEC TYPE Capillary SUNQUEST 03/03/2019 4:12 PM EST 03/03/2019 4:15 PM EST us Ilan Hickey MD LAB BLOOD ORDERABL ES Final Result SUNQUEST * ARTERIAL LOWER EXT SEG JAILYN/WFS HISTORICAL (03/03/2019 1:36 PM EST) Anatomical Region Laterality Modality Ultrasound Narrative 03/03/2019 1:41 PM EST REQUESTING PHYSICIAN: TASHA GARCIA REASON FOR EXAMINATION/PROCEDURE: *Crescencio;Jose,;Tasha;S;;([id number]) EXAMINATION / PROCEDURE: ARTERIAL LOWER EXT SEG JAILYN/WFS 2018 - 13:36; CLINICAL INDICATION: Diminished pulses TECHNIQUE: Non-invasive, continuous wave Doppler exam with segmental pressures and spectral analysis of the lower extremity was performed. COMPARISON: None. FINDINGS: Right: Multiphasic waveforms are demonstrated at the PT and DP level. Segmental pressures are within normal limits with a PT JAILYN of 0.97 (100 mm/Hg) and a DP JAILYN of 0.97 (100 mm/Hg). Digit pressures are 67 mm/Hg. Left: Multiphasic waveforms are demonstrated at the PT and DP level. Patient refused segmental pre ssures.Digit pressures are 80 mm/Hg. IMPRESSION: Right: Normal study. There is no evidence of hemodynamically significant arterial disease at rest. Left: Patient refused segmental pressures.Based on waveform analysis there is no evid ence of hemodynamically significant arterial disease at rest. COMMUNICATION: per this written report. By electronically signing this report, I, the attending physician, attest that I have personally reviewed the images/data for the above examination(s) and I agree with the final edited report. Verified by: ALFRED DURHAM M.D. on :40P Transcribed by: DURAN on :36P Dictated by: MARIELOS SULLIVAN R.V.T. on :36P Procedure Note MarvaAlfred woodruff Rui - 10/02/2020 REQUESTING PHYSICIAN: TASHA GARCIA REASON FOR EXAMINATION/PROCEDURE: *Crescencio;Jose,;Tasha;S;;([id number]) EXAMINATION / PROCEDURE: ARTERIAL LOWER EXT SEG JAILYN/WFS 2018 - 13:36; CLINICAL INDICATION: Diminished pulses TECHNIQUE: Non-invasive, continuous wave Doppler exam with segmental pressures and spectral analysis of the lower extremity was performed. COMPARISON: None. FINDINGS: Right: Multiphasic waveforms are demonstrated at the PT and DP level. Segmental pressures are within normal limits with a PT JAILYN of 0.97 (100 mm/Hg) and a DP JAILYN of 0.97 (100 mm/Hg). Digit pressures are 67 mm/Hg. Left: Multiphasic waveforms are demonstrated at the PT and DP level. Patient refused segmental pre ssures.Digit pressures are 80 mm/Hg. IMPRESSION: Right: Normal study. There is no evidence of hemodynamically significant arterial disease at rest. Left: Patient refused segmental pressures.Based on waveform analysis there is no evid ence of hemodynamically significant arterial disease at rest. COMMUNICATION: per this written report. By electronically signing this report, I, the attending physician, attest that I have personally reviewed the images/data for the above examination(s) and I agree with the final edited report. Verified by: ALFRED DURHAM M.D. on :40P Transcribed by: DURAN on :36P Dictated by: MARIELOS SULLIVAN R.V.T. on :36P us Historical Provider CV VASCULAR PROCEDURES Fi nal Result * (ABNORMAL) Glucose Point of Care. (03/03/2019 11:53 AM EST) POCT Glucose 366(H) 74 - 99 mg/dL SUNQUEST Comment: Accuracy of a glucose result obtained from a capillary whole blood specimen relies upon adequate, non-compromised capillary blood flow.If the capillary glucose result is not consistent with the patient's clinical signs and symptoms, glucose testing should be repeated with either an arterial or venous sample on the glucometer or sent to the main laboratory for testing. SPEC TYPE Capillary SUNQUEST 03/03/2019 11:5 3 AM EST 03/03/2019 12:00 PM EST us Ilan Hickey MD LAB BLOOD ORDERABL ES Final Result SUNQUEST * Gram Positive Bacterial Panel by PCR (03/03/2019 9:15 AM EST) 03/03/2019 9:15 AM EST 03/03/2019 9:43 AM EST Narrative SUNQUEST - 05/22/2020 9:19 PM EST SQ ACC. NUMBER ?[id number] SPECIMEN DESCRIPTION: ?BLOOD LEFT ARM SPECIAL REQUESTS: ?NONE GRAM POSITIVE PANEL RESULT ?? POSITIVE FOR STAPHYLOCOCCUS AUREUS POSITIVE FOR ?mecA GENE ? POSITIVE FOR STAPHYLOCOCCUS SPECIES ? PRESUMPTIVE NEGATIVE FOR ALL OTHER ANALYTES. ?CORRELATE WITH CULTURE RESULTS. ? NOTE: ??Patient needs MRSA Protocol ? REFERENCE VALUE: NEGATIVE FOR ALL ANALYTES TESTED. ANALYTES INCLUDE: STAPHYLOCOCCUS SPECIES, STAPHYLOCOCCUS AUREUS, STAPHYLOCOCCUS EPIDERMIDIS, STAPHYLOCOCCUS LUGDUNENSIS, ENTEROCOCCUS FAECIUM, ENTEROCOCCUS FAECALIS, STREPTOCOCCUS SPECIES, STREPTOCOCCUS PNEUMONIAE, STREPTOCOCCUS PYOGENES, STREPTOCOCCUS AGALACTIAE, LISTERIA SPECIES, AND mecA, Dustin, and vanB GENES. NOTIFIED IBETH VIRGEN PHARMD AT 1239 ON 03.04.19 MJ Read Back completed REPORT STATUS: ? FINAL [id number] us Althea TREVIÑO LAB MICROBIOLOGY - GENERAL ORDER [place] Final Result SUNQUEST * Suceptibility Each (03/03/2019 9:15 AM EST) 03/03/2019 9:15 AM EST 03/03/2019 9:43 AM EST Narrative SUNQUEST - 05/22/2020 9:19 PM EST SQ ACC. NUMBER ?[id number] SPECIMEN DESCRIPTION: ?BLOOD LEFT ARM SPECIAL REQUESTS: ?NONE CULTURE: ? STAPHYLOCOCCUS AUREUS (MRSA) ? NOTE: ??Patient needs MRSA Protocol ? Anaerobic Blood Culture Bottle POSITIVE. ?? Subbing to solid media for Identification and Susceptibility testing if indicated. ? Gram Stain of Anaerobic Bottle: GRAM POSITIVE COCCI IN CLUSTERS Date and Time to Detection: 12.7 @ 19 HOURS PHYSICIAN NOTIFIED: DR SCHRADER ??12.7 @0620 . Read Back completed. SW Aerobic Blood Culture Bottle POSITIVE. ?? Subbing to solid media for Identification and Susceptibility testing if indicated. ? Gram Stain of Aerobic Bottle: GRAM POSITIVE COCCI IN CLUSTERS Date and Time to Detection: 12.7 @ 1 DAY 11 HOURS REPORT STATUS: ? FINAL [id number] SQ ACC. NUMBER ?[id number] ORGANISM ? STAPHYLOCOCCUS AUREUS (MRSA) METHOD ? MIKE (mcg/mL) DAPTOMYCIN ? <=1 SUSCEPTIBLE OXACILLIN ?>2 RESISTANT VANCOMYCIN ? 1 SUSCEPTIBLE SQ ACC. NUMBER ?[id number] ORGANISM ? STAPHYLOCOCCUS AUREUS (MRSA) METHOD ? Billing Info: ??patient charged for serological ?identification of this isolate us Althea TREVIÑO LAB MICROBIOLOGY - GENERAL ORDER [place] Final Result Performing Organization Address [facility] Co de Phone Number SUNQUEST * (ABNORMAL) Glucose Point of Care. (03/03/2019 7:46 AM EST) [facility] POCT Glucose 323(H) 74 - 99 mg/dL SUNQUEST Comment: Accuracy of a glucose result obtained from a capillary whole blood specimen relies upon adequate, non-compromised capillary blood flow.If the capillary glucose result is not consistent with the patient's clinical signs and symptoms, glucose testing should be repeated with either an arterial or venous sample on the glucometer or sent to the main laboratory for testing. SPEC TYPE Capillary SUNQUEST 03/03/2019 7:46 AM EST 03/03/2019 7:50 AM EST us Ilan Hickey MD LAB BLOOD ORDERABL ES Final Result Performing Organization Address [facility] de Phone Number SUNQUEST * (ABNORMAL) Phosphorus, Plasma (03/03/2019 4:19 AM EST) Phosphorus, Plasma 2.3(L) 2.5 - 4.5 mg/dL SUNQUEST 03/03/2019 4:19 AM EST 03/03/2019 4:39 AM EST Historical Provider MD LAB BLOOD ORDERABLES Laurie l Result Performing Organization Address [facility] Co de Phone Number SUNQUEST * Magnesium, Plasma (03/03/2019 4:19 AM EST) Magnesium, Plasma 1.9 1.9 - 2.4 mg/dL SUNQUEST 03/03/2019 4:19 AM EST 03/03/2019 4:39 AM EST us Historical Provider MD LAB BLOOD ORDERABLES Laurie l Result Performing Organization Address [facility] de Phone Number SUNQUEST * (ABNORMAL) Basic Metabolic Panel, Plasma (03/03/2019 4:19 AM EST) Glucose, Plasma 304(H) 74 - 99 mg/dL SUNQUEST BUN, Plasma 20 7 - 21 mg/dL SUNQUEST Creatinine, Plasma 0.76(L) 0.80 - 1.30 mg/dL SUNQUEST BUN/Creatinine Ratio 26(H) 8 - 20 SUNQUEST Sodium, Plasma 129(L) 136 - 145 mmol/L SUNQUEST Potassium, Plasma 3.9 3.7 - 4.8 mmol/L SUNQUEST Chloride, Plasma 91(L) 97 - 107 mmol/L SUNQUEST CO2, Plasma 26 22 - 29 mmol/L SUNQUEST Anion Gap 12 6 - 16 mmol/L SUNQUEST Calcium, Plasma 9.0 8.9 - 10.2 mg/dL SUNQUEST eGFR >60 >60 SEE NOTE SUNQUEST eGFR, if AFR/AM >60 >60 SEE NOTE SUNQUEST Comment: (NOTE) eGFR = estimated GFR; eGFR units = mL/min/1.73 sq meters Chronic Kidney Disease is considered if eGFR <60 mL/min/1.73 sq meters Kidney failure is considered if eGFR is <15 mL/min/1.73 sq meters. eGFR assumes steady state plasma creatinine concentration; not applicable if renal function is rapidly changing or patient is on dialysis. 03/03/2019 4:19 AM EST 03/03/2019 4:39 AM EST Historical Provider LAB BLOOD ORDERABLES Laurie l Result Performing Organization Address [facility] Co de Phone Number SUNQUEST * (ABNORMAL) CBC W/O Differential (03/03/2019 4:19 AM EST) WBC Count 21.76(H) 3.7 - 10.3 k/uL SUNQUEST RBC Count 4.32(L) 4.6 - 6.1 M/uL SUNQUEST HGB 12.0(L) 13.7 - 17.5 g/dL SUNQUEST HCT 36.3(L) 40 - 51 % SUNQUEST Platelet Count 326 155 - 369 k/uL SUNQUEST MCV 84 79 - 98 fL SUNQUEST MCH 27.8 26 - 32 pg SUNQUEST MCHC 33.1 30.7 - 35.5 g/dL SUNQUEST RDW 12.7 12.4 - 14.9 % SUNQUEST MPV 9.8 8.8 - 12.5 fL SUNQUEST NRBC COUNT 0.1(H) 0 % SUNQUEST 03/03/2019 4:19 AM EST 03/03/2019 4:37 AM EST Historical Provider LAB BLOOD ORDERABLES Laurie l Result Performing Organization Address [facility] de Phone Number SUNQUEST * (ABNORMAL) WBC Differential (03/03/2019 4:19 AM EST) Differential Type AUTOMATED SUNQUEST Neutrophils % 83 % SUNQUEST Lymphocytes 9 % SUNQUEST Monocytes 4 % SUNQUEST Eosinophils 0 % SUNQUEST Basophils 1 % SUNQUEST Immature Granulocytes % 3 % SUNQUEST ABS Neutrophil 18.08(H) 1.6 - 6.1 k/uL SUNQUEST ABS Lymphocyte 2.00 1.2 - 3.9 k/uL SUNQUEST ABS Monocyte 0.78 0.3 - 0.9 k/uL SUNQUEST ABS Eosinophil 0.02 0 - 0.5 k/uL SUNQUEST ABS Basophil 0.15(H) 0 - 0.1 k/uL SUNQUEST Immature Granulocyte Absolute 0.73(H) 0 - 0.06 k/uL SUNQUEST Rouleaux Present SUNQUEST RBC Morphology Slide reviewed SUNQUEST 03/03/2019 4:19 AM EST 03/03/2019 4:37 AM EST Narrative SUNQUEST - 03/03/2019 5:44 AM EST Therapeutic decision making should be based on absolute values, rather than percentages. Therapeutic decision making should be based on absolute values, rather than percentages. Therapeutic decision making should be based on absolute values, rather than percentages. Therapeutic decision making should be based on absolute values, rather than percentages. Robinson Provider LAB BLOOD ORDERABLES Laurie l Result Performing Organization Address [facility] de Phone Number SUNQUEST * Osmolality, Plasma (03/03/2019 4:19 AM EST) Osmolality, Serum 287 275 - 295 mOsm/kg SUNQUEST 03/03/2019 4:19 AM EST 03/03/2019 4:54 AM EST Althea TREVIÑO LAB BLOOD ORDERABLES Final Resul t Performing Organization Address [facility] de Phone Number SUNQUEST * (ABNORMAL) Glucose Point of Care. (03/03/2019 3:12 AM EST) POCT Glucose 359(H) 74 - 99 mg/dL SUNQUEST Comment: Accuracy of a glucose result obtained from a capillary whole blood specimen relies upon adequate, non-compromised capillary blood flow.If the capillary glucose result is not consistent with the patient's clinical signs and symptoms, glucose testing should be repeated with either an arterial or venous sample on the glucometer or sent to the main laboratory for testing. SPEC TYPE Capillary SUNQUEST 03/03/2019 3:12 AM EST 03/03/2019 3:15 AM EST Ilan Hickey MD LAB BLOOD ORDERABL ES Final Result Performing Organization Address [facility] de Phone Number SUNQUEST * (ABNORMAL) Glucose Point of Care. (03/02/2019 7:11 PM EST) POCT Glucose 335(H) 74 - 99 mg/dL SUNQUEST Comment: Accuracy of a glucose result obtained from a capillary whole blood specimen relies upon adequate, non-compromised capillary blood flow.If the capillary glucose result is not consistent with the patient's clinical signs and symptoms, glucose testing should be repeated with either an arterial or venous sample on the glucometer or sent to the main laboratory for testing. SPEC TYPE Capillary SUNQUEST 03/02/2019 7:11 PM EST 03/02/2019 7:15 PM EST Ilan Hickey MD LAB BLOOD ORDERABL ES Final Result Performing Organization Address [facility] Phone Number SUNQUEST * (ABNORMAL) Glucose Point of Care. (03/02/2019 4:58 PM EST) Pathologist [facility] POCT Glucose 340(H) 74 - 99 mg/dL SUNQUEST Comment: Accuracy of a glucose result obtained from a capillary whole blood specimen relies upon adequate, non-compromised capillary blood flow.If the capillary glucose result is not consistent with the patient's clinical signs and symptoms, glucose testing should be repeated with either an arterial or venous sample on the glucometer or sent to the main laboratory for testing. SPEC TYPE Capillary SUNQUEST 03/02/2019 4:58 PM EST 03/02/2019 5:05 PM EST Ilan Hickey MD LAB BLOOD ORDERABL ES Final Result Performing Organization Address [facility] de Phone Number SUNQUEST * Sodium, Random, Urine (03/02/2019 4:39 PM EST) Pathologist [facility] Sodium, Urine <20 mmol/L SUNQUEST 03/02/2019 4:39 PM EST 03/02/2019 4:58 PM EST Althea TREVIÑO LAB URINE ORDERABLES Final Resul t SUNQUEST * XR Tibia Fibula Left 2+ Views (03/02/2019 3:50 PM EST) Anatomical Region Laterality Modality Lower Extremities, Lower Leg Left Rad iographic Imaging Narrative 03/02/2019 5:49 PM EST REQUESTING PHYSICIAN: TASHA GARCIA REASON FOR EXAMINATION/PROCEDURE: RAD PDP:Y ??* ??cellulitis EXAMINATION / PROCEDURE: TIB/FIB LEFT Dec ??5 2018 - 15:50; ?? CLINICAL INDICATION: Cellulitis. TECHNIQUE: TIB/FIB LEFT COMPARIS ON: CT lower extremity performed 1 hour prior. FINDINGS: No acute fracture or dislocation. Questionable minimal periosteal reaction of the lateral distal cortex of the fibula. Edema of the calf, lateral greater than medial. Soft tissue findin gs can be better evaluated on the already performed CT of the lower extremity. ?? IMPRESSION: No acute fracture or dislocation. Questionable minimal periosteal reaction of the lateral distal cortex of the fibula. Edema of the calf, lateral g reater than medial. Soft tissue findings can be better evaluated on the already performed CT of the lower extremity. CRITICAL RESULT: ?? No. COMMUNICATION: Per this written report. ?? Verified by: MADELYN FREY M.D. on Feb ??2018 ??5: 48P Transcribed by: [facility] on Feb ??5 2019 ??5:48P Dictated by: MADELYN FREY M.D. on Feb ??2018 ??5:47P Procedure Note Madelyn Frey - 07/22/2020 REQUESTING PHYSICIAN: TASHA GARCIA REASON FOR EXAMINATION/PROCEDURE: RAD PDP:Y * cellulitis EXAMINATION / PROCEDURE: TIB/FIB LEFT Mar 02 2019 - 15:50; CLINICAL INDICATION: Cellulitis. TECHNIQUE: TIB/FIB LEFT COMPARIS ON: CT lower extremity performed 1 hour prior. FINDINGS: No acute fracture or dislocation. Questionable minimal periosteal reaction of the lateral distal cortex of the fibula. Edema of the calf, lateral greater than medial. Soft tissue findin gs can be better evaluated on the already performed CT of the lower extremity. IMPRESSION: No acute fracture or dislocation. Questionable minimal periosteal reaction of the lateral distal cortex of the fibula. Edema of the calf, lateral g reater than medial. Soft tissue findings can be better evaluated on the already performed CT of the lower extremity. CRITICAL RESULT: No. COMMUNICATION: Per this written report. Verified by: MADELYN FREY M.D. on Mar 02 2019 5: 48P Transcribed by: [facility] on Mar 02 2019 5:48P Dictated by: MADELYN FREY M.D. on Mar 02 2019 5:47P us Historical Provider MD GALLAGHER XR PROCEDURES Final R esult * CT Lower Extremity Left w IV Contrast (03/02/2019 2:28 PM EST) Anatomical Region Laterality Modality Lower Extremities Left Computed Tomog ronna Narrative 03/02/2019 4:53 PM EST REQUESTING PHYSICIAN: TASHA GARCIA REASON FOR EXAMINATION/PROCEDURE: RAD PDP:Y ??* ??LLE cellulitis EXAMINATION / PROCEDURE: CT Low Ext W IVCON LT Feb ??2018 - 14:28; ?? CLINICAL INDICATION: RAD PDP:Y ??* ??LLE cellulitis TECHNI QUE: Multiple axial CT images were obtained through the left lower extremity following administration of 100 cc of Omnipaque 300 intravenous contrast. The axial CT data set was used to generate high resolution reformatted images in the coronal and sagittal planes to facilitate diagnostic accuracy and treatment planning. ?? Total DLP (Dose-Length Product): 1926.71 mGy.cm. Please note: The reported value represents the total of one or more individual components during the CT acquisit ion on this date and at this time, and as such, the same value may appear in more than one CT report depending on the interpreting/reporting physicians. COMPARISON: None. FINDINGS: Below the knee, there is diffuse myonecrosis involving pos terior and lateral muscle compartments, with additional scattered fluid between the fascia without definite loculations to suggest an obvious abscess formations. Associated skin thickening. Varicose veins are noted. No acute fracture. No abno rmal periosteal reaction. No destructive osseous lesions are appreciated. No subcutaneous air is appreciated. ?? IMPRESSION: Findings most compatible with diffuse myonecrosis involving posterior lateral muscle compartments below the knee, wit h additional fluid between the fascia. Varicose veins. CRITICAL RESULT: ?? No. COMMUNICATION: Per this written report. ?? Verified by: JYOTHI WADDELL M.D. on Feb ??2018 ??4:51P Transcribed by: DURAN on Feb ??2018 ??4:51P Dictat ed by: JYOTHI WADDELL M.D. on Feb ??2018 ??4:38P Procedure Note Jyothi Waddell - 07/22/2020 REQUESTING PHYSICIAN: TASHA GARCIA REASON FOR EXAMINATION/PROCEDURE: RAD PDP:Y * LLE cellulitis EXAMINATION / PROCEDURE: CT Low Ext W IVCON LT Mar 02 2019 - 14:28; CLINICAL INDICATION: RAD PDP:Y * LLE cellulitis TECHNI QUE: Multiple axial CT images were obtained through the left lower extremity following administration of 100 cc of Omnipaque 300 intravenous contrast. The axial CT data set was used to generate high resolution reformatted images in the coronal and sagittal planes to facilitate diagnostic accuracy and treatment planning. Total DLP (Dose-Length Product): 1926.71 mGy.cm. Please note: The reported value represents the total of one or more individual components during the CT acquisit ion on this date and at this time, and as such, the same value may appear in more than one CT report depending on the interpreting/reporting physicians. COMPARISON: None. FINDINGS: Below the knee, there is diffuse myonecrosis involving pos terior and lateral muscle compartments, with additional scattered fluid between the fascia without definite loculations to suggest an obvious abscess formations. Associated skin thickening. Varicose veins are noted. No acute fracture. No abno rmal periosteal reaction. No destructive osseous lesions are appreciated. No subcutaneous air is appreciated. IMPRESSION: Findings most compatible with diffuse myonecrosis involving posterior lateral muscle compartments below the knee, wit h additional fluid between the fascia. Varicose veins. CRITICAL RESULT: No. COMMUNICATION: Per this written report. Verified by: JYOTHI WADDELL M.D. on Mar 02 2019 4:51P Transcribed by: DURAN on Mar 02 2019 4:51P Dictat ed by: JYOTHI WADDELL M.D. on Mar 02 2019 4:38P us Historical Provider MD GALLAGHER CT PROCEDURES Final R esult * CT Angio Abdomen Pelvis w Runoff (03/02/2019 2:28 PM EST) Anatomical Region Laterality Modality Pelvis and lower extremeties Bilateral Com puted Tomography Narrative 03/02/2019 4:03 PM EST REQUESTING PHYSICIAN: TASHA GARCIA REASON FOR EXAMINATION/PROCEDURE: RAD PDP:Y ??* ??LLE cellulitis; PVD EXAMINATION / PROCEDURE: CTA Abdomen & Pelvis W Runoff Feb ??2018 - 14:28; ?? CLINICAL INDICATION: Left lower extremity cell ulitis, peripheral vascular disease TECHNIQUE: Imaging of the abdomen and lower extremities was performed, from lung bases through bilateral lower extremities, using spiral technique, following administration of IV contrast, Omnipaque 350, 10 0 mL according to the CTA with runoff. Reformatted images in the coronal, sagittal, and oblique planes were generated from the axial data set to facilitate diagnostic accuracy. In addition, 3D images were created and reviewed. Total DLP (Dose -Length Product): 1927. Please note: The reported value represents the total of one or more individual components during the CT acquisition on this date and at this time, and as such, the same value may appear in more than one CT report dependin g on the interpreting/reporting physicians. COMPARISON: None. FINDINGS: Abdomen and Pelvis: Vascular: The abdominal aorta and its major branches are patent. Non-vascular: non-contributory. Lower Extremities: Right Lower Extremity : Right Common Iliac Artery: Patent. Right External Iliac Artery: Patent. Right Common Femoral Artery: Patent. Right Deep Femoral Artery: Patent. Right Superficial Femoral Artery: Patent. Right Popliteal Artery: Patent. Right Anteri or Tibial Artery: Patent. Right Tibioperoneal Trunk: Patent. Right Posterior Tibial Artery: Patent. Right Peroneal Artery: Patent. Right foot: Vessels become somewhat attenuated over the plantar aspect of the foot and the dorsum. Righ t Non-Vascular: Non-contributory. Left Lower Extremity: Left Common Iliac Artery: Patent. Left External Iliac Artery: Patent. Left Common Femoral Artery: Patent. Left Deep Femoral Artery: Patent. Left Superficial Femoral Artery: Patent . Left Popliteal Artery: Patent. Left Anterior Tibial Artery: Patent. Left Tibioperoneal Trunk: Patent. Left Posterior Tibial Artery: Patent. Left Peroneal Artery: Patent. Left Non-Vascular: Beginning at the level just below the meta physis of the tibia there is soft tissue fullness along the lateral aspect of the foreleg. There is diffuse low-attenuation consistent with edema and there is evidence of cellulitis. At the mid diaphyseal level there are fluid collections surr ounding the fibula. There is continuity of these collections at the mid calf level. The walled off fluid collection measures approximately 6.5 cm in the transverse dimension by approximately 3.4 cm in the anterior to posterior dimension. This fl uid collection has fingerlike projections along its margins and is tapering to a much smaller dimensions at the level of the ankle joint. Over the anterior aspect of the talus there is a small rim of fluid with enhancing margin. There is a sma ll amount of fluid/cellulitis over the dorsal aspect of the foot ?? IMPRESSION: 1. Normal runoff. Lobulated large rim-enhancing abscess around the fibula from the proximal diaphysis extending onto the dorsum of the foot. At the mid calf lev el the abscess has a maximum dimension of 6.5 cm in the transverse plane. There is associated cellulitis over the lateral aspect of the foreleg. No underlying bone abnormality is appreciated. CRITICAL RESULT: ?? No. COMMUNICATION: Per dhaval s written report. ?? Verified by: CAMILLE HAMILTON M.D. on Feb ??2018 ??4:02P Transcribed by: [facility] on Feb ??2018 ??4:02P Dictated by: CAMILLE HAMILTON M.D. on Feb ??2018 ??3:47P Procedure Note Camille Hamilton - 07/22/2020 REQUESTING PHYSICIAN: TASHA GARCIA REASON FOR EXAMINATION/PROCEDURE: RAD PDP:Y * LLE cellulitis; PVD EXAMINATION / PROCEDURE: CTA Abdomen & Pelvis W Runoff Mar 02 2019 - 14:28; CLINICAL INDICATION: Left lower extremity cell ulitis, peripheral vascular disease TECHNIQUE: Imaging of the abdomen and lower extremities was performed, from lung bases through bilateral lower extremities, using spiral technique, following administration of IV contrast, Omnipaque 350, 10 0 mL according to the CTA with runoff. Reformatted images in the coronal, sagittal, and oblique planes were generated from the axial data set to facilitate diagnostic accuracy. In addition, 3D images were created and reviewed. Total DLP (Dose -Length Product): 1927. Please note: The reported value represents the total of one or more individual components during the CT acquisition on this date and at this time, and as such, the same value may appear in more than one CT report dependin g on the interpreting/reporting physicians. COMPARISON: None. FINDINGS: Abdomen and Pelvis: Vascular: The abdominal aorta and its major branches are patent. Non-vascular: non-contributory. Lower Extremities: Right Lower Extremity : Right Common Iliac Artery: Patent. Right External Iliac Artery: Patent. Right Common Femoral Artery: Patent. Right Deep Femoral Artery: Patent. Right Superficial Femoral Artery: Patent. Right Popliteal Artery: Patent. Right Anteri or Tibial Artery: Patent. Right Tibioperoneal Trunk: Patent. Right Posterior Tibial Artery: Patent. Right Peroneal Artery: Patent. Right foot: Vessels become somewhat attenuated over the plantar aspect of the foot and the dorsum. Righ t Non-Vascular: Non-contributory. Left Lower Extremity: Left Common Iliac Artery: Patent. Left External Iliac Artery: Patent. Left Common Femoral Artery: Patent. Left Deep Femoral Artery: Patent. Left Superficial Femoral Artery: Patent . Left Popliteal Artery: Patent. Left Anterior Tibial Artery: Patent. Left Tibioperoneal Trunk: Patent. Left Posterior Tibial Artery: Patent. Left Peroneal Artery: Patent. Left Non-Vascular: Beginning at the level just below the meta physis of the tibia there is soft tissue fullness along the lateral aspect of the foreleg. There is diffuse low-attenuation consistent with edema and there is evidence of cellulitis. At the mid diaphyseal level there are fluid collections surr ounding the fibula. There is continuity of these collections at the mid calf level. The walled off fluid collection measures approximately 6.5 cm in the transverse dimension by approximately 3.4 cm in the anterior to posterior dimension. This fl uid collection has fingerlike projections along its margins and is tapering to a much smaller dimensions at the level of the ankle joint. Over the anterior aspect of the talus there is a small rim of fluid with enhancing margin. There is a sma ll amount of fluid/cellulitis over the dorsal aspect of the foot IMPRESSION: 1. Normal runoff. Lobulated large rim-enhancing abscess around the fibula from the proximal diaphysis extending onto the dorsum of the foot. At the mid calf lev el the abscess has a maximum dimension of 6.5 cm in the transverse plane. There is associated cellulitis over the lateral aspect of the foreleg. No underlying bone abnormality is appreciated. CRITICAL RESULT: No. COMMUNICATION: Per thi s written report. Verified by: CAMILLE HAMILTON M.D. on Mar 02 2019 4:02P Transcribed by: DURAN on Mar 02 2019 4:02P Dictated by: CAMILLE HAMILTON M.D. on Mar 02 2019 3:47P us Historical Provider IMJennifer CT PROCEDURES Final R esult * VAS US Venous Duplex Lower Extremity Unilateral (03/02/2019 12:55 PM EST) Anatomical Region Laterality Modality Lower Extremities Ultrasound Narrative 03/02/2019 1:59 PM EST REQUESTING PHYSICIAN: MIGUELITO AVITIA REASON FOR EXAMINATION/PROCEDURE: Sadi,;Miguelito;Baljeet;;([id number]) EXAMINATION / PROCEDURE: VENOUS DUPLEX LOWER EXTREMITY UN 2018 - 12:55; CLINICAL INDICATION: Limb pain and swelling TECHNIQUE: Non-invasive, real time duplex exam of the lower extremity venous circulation with Doppler ultrasonic waveform and spectral analysis was performed. COMPARISON: None. FINDINGS: Left: Venous duplex demonstrates compressible c ommon femoral, femoral, popliteal, posterior tibial and peroneal veins. The venous spectral analysis demonstrates a spontaneous, phasic, augmentable and nonpulsatile flow signal. IMPRESSION: Left: Normal study. No evidence of acute DVT i s identified. COMMUNICATION: NONE By electronically signing this report, I, the attending physician, attest that I have personally reviewed the images/data for the above examination(s) and I agree with the final edited report. Verif ied by: ALFRED DURHAM M.D. on :57P Transcribed by: DURAN on :05P Dictated by: MARIELOS SULLIVAN R.V.T. on :05P Procedure Note Alfred Durham - 10/02/2020 REQUESTING PHYSICIAN: MIGUELITO AVITIA REASON FOR EXAMINATION/PROCEDURE: Sadi,;Miguelito;Baljeet;;([id number]) EXAMINATION / PROCEDURE: VENOUS DUPLEX LOWER EXTREMITY UN 2018 - 12:55; CLINICAL INDICATION: Limb pain and swelling TECHNIQUE: Non-invasive, real time duplex exam of the lower extremity venous circulation with Doppler ultrasonic waveform and spectral analysis was performed. COMPARISON: None. FINDINGS: Left: Venous duplex demonstrates compressible c ommon femoral, femoral, popliteal, posterior tibial and peroneal veins. The venous spectral analysis demonstrates a spontaneous, phasic, augmentable and nonpulsatile flow signal. IMPRESSION: Left: Normal study. No evidence of acute DVT i s identified. COMMUNICATION: NONE By electronically signing this report, I, the attending physician, attest that I have personally reviewed the images/data for the above examination(s) and I agree with the final edited report. Verif ied by: ALFRED DURHAM M.D. on :57P Transcribed by: PSCB on :05P Dictated by: MARIELOS SULLIVAN R.V.T. on 20181:05P Miguelito Avitia MD CV VASCULAR PROCEDURES F inal Result * Extra Tubes (03/02/2019 10:41 AM EST) Extra GREEN TOP TUBE. PLASMA REFRIGERATED IN LAB 72 HOURS. SUNQUEST 03/02/2019 10:4 1 AM EST 03/02/2019 10:41 AM EST Carmencita Slaughter MD LAB BLOOD ORDERABLES Final Res ult SUNQUEST * (ABNORMAL) Hemoglobin A1c (03/02/2019 10:35 AM EST) Hemoglobin A1c 16.0(H) 4.7 - 6.0 % SUNQUEST Comment: Glycohemoglobin Reference Range, 0 years and up: ??4.7 to 6.0% . HA1C Interpretive Data: Diagnosis of Diabetes: Diabetic > or = 6.5% Pre-diabetic 5.7 to 6.4% Non-diabetic < or = 5.6% . Glycemic Targets for Type I and Type II Diabetics: Non- Adults <7.0% Adults <6.0% Children and Adolescents <7.5% . Source: ??[place] [employer]. Standards of medical care in diabetes, 2017. Diabetes Care.2017:40 (suppl 1):S1-S135. . HbA1c assay performed by an ion-exchange chromatography method that is certified traceable to the DCCT. 03/02/2019 10:3 5 AM EST 03/02/2019 11:00 AM EST Harlan Lamb MD LAB BLOOD ORDERABLES Final Result Performing Organization Address [facility] Co de Phone Number SUNQUEST * Phosphorus, Plasma (03/02/2019 10:35 AM EST) Phosphorus, Plasma 3.3 2.5 - 4.5 mg/dL SUNQUEST 03/02/2019 10:3 5 AM EST 03/02/2019 10:54 AM EST Harlan Lamb MD LAB BLOOD ORDERABLES Final Result Performing Organization Address [facility] de Phone Number SUNQUEST * Magnesium, Plasma (03/02/2019 10:35 AM EST) Magnesium, Plasma 1.9 1.9 - 2.4 mg/dL SUNQUEST 03/02/2019 10:3 5 AM EST 03/02/2019 10:54 AM EST Harlan Lamb MD LAB BLOOD ORDERABLES Final Result Performing Organization Address [facility] Co de Phone Number SUNQUEST * (ABNORMAL) Comprehensive Metabolic Panel, Plasma (03/02/2019 10:35 AM EST) Glucose, Plasma 273(H) 74 - 99 mg/dL SUNQUEST BUN, Plasma 23(H) 7 - 21 mg/dL SUNQUEST Creatinine, Plasma 0.80 0.80 - 1.30 mg/dL SUNQUEST BUN/Creatinine Ratio 29(H) 8 - 20 SUNQUEST Sodium, Plasma 128(L) 136 - 145 mmol/L SUNQUEST Potassium, Plasma 4.6 3.7 - 4.8 mmol/L SUNQUEST Chloride, Plasma 86(L) 97 - 107 mmol/L SUNQUEST CO2, Plasma 20(L) 22 - 29 mmol/L SUNQUEST Anion Gap 22(H) 6 - 16 mmol/L SUNQUEST Calcium, Plasma 9.3 8.9 - 10.2 mg/dL SUNQUEST AST, Plasma 19 12 - 40 U/L SUNQUEST ALT, Plasma 14 11 - 41 U/L SUNQUEST Alkaline Phosphatase, Plasma 166(H) 40 - 115 U/L SUNQUEST Total Bilirubin, Plasma 0.7 0.2 - 1.1 mg/dL SUNQUEST Total Protein 8.8(H) 6.3 - 7.9 g/dL SUNQUEST Albumin, Plasma 1.4(L) 3.3 - 4.6 g/dL SUNQUEST eGFR >60 >60 SEE NOTE SUNQUEST eGFR, if AFR/AM >60 >60 SEE NOTE SUNQUEST Comment: (NOTE) eGFR = estimated GFR; eGFR units = mL/min/1.73 sq meters Chronic Kidney Disease is considered if eGFR <60 mL/min/1.73 sq meters Kidney failure is considered if eGFR is <15 mL/min/1.73 sq meters. eGFR assumes steady state plasma creatinine concentration; not applicable if renal function is rapidly changing or patient is on dialysis. 03/02/2019 10:3 5 AM EST 03/02/2019 10:54 AM EST Harlan Lamb MD LAB BLOOD ORDERABLES Final Result SUNQUEST * [place] Hepatitis C Antibody (03/02/2019 10:35 AM EST) [place] Hepatitis C Ab NEGATIVE Reference Range: Negative SUNQUEST 03/02/2019 10:3 5 AM EST 03/02/2019 11:03 AM EST Ilan Hickey MD LAB BLOOD ORDERABL ES Final Result SUNQUEST * (ABNORMAL) CBC W/O Differential (03/02/2019 10:34 AM EST) WBC Count 26.63(H) 3.7 - 10.3 k/uL SUNQUEST RBC Count 4.58(L) 4.6 - 6.1 M/uL SUNQUEST HGB 12.7(L) 13.7 - 17.5 g/dL SUNQUEST HCT 38.8(L) 40 - 51 % SUNQUEST Platelet Count 391(H) 155 - 369 k/uL SUNQUEST MCV 85 79 - 98 fL SUNQUEST MCH 27.7 26 - 32 pg SUNQUEST MCHC 32.7 30.7 - 35.5 g/dL SUNQUEST RDW 12.9 12.4 - 14.9 % SUNQUEST MPV 9.6 8.8 - 12.5 fL SUNQUEST NRBC COUNT 0.1(H) 0 % SUNQUEST 03/02/2019 10:3 4 AM EST 03/02/2019 10:40 AM EST Harlan Lamb MD LAB BLOOD ORDERABLES Final Result SUNQUEST * (ABNORMAL) WBC Differential (03/02/2019 10:34 AM EST) Pathologist [facility] Differential Type MANUAL SUNQUEST Blasts % 0 % SUNQUEST Promyelocytes 0 % SUNQUEST Myelocytes 1 % SUNQUEST Metamyelocytes 5 % SUNQUEST Neutrophil 69 % SUNQUEST Lymphocyte 16 % SUNQUEST Monocyte 9 % SUNQUEST Eosinophil 0 % SUNQUEST Basophil 0 % SUNQUEST ABS Blast 0.00 0 k/uL SUNQUEST ABS Promyelocyte 0.00 0 k/uL SUNQUEST ABS Myelocyte 0.27(H) 0 k/uL SUNQUEST ABS Metamyelocyte 1.33(H) 0 k/uL SUNQUEST ABS Neutrophil 18.37(H) 1.6 - 6.1 k/uL SUNQUEST ABS Lymphocyte 4.26(H) 1.2 - 3.9 k/uL SUNQUEST ABS Monocyte 2.40(H) 0.3 - 0.9 k/uL SUNQUEST Eosinophil Absolute 0.00 0 - 0.5 k/uL SUNQUEST ABS Basophil 0.00 0 - 0.1 k/uL SUNQUEST Rouleaux Present SUNQUEST Platelet Estimate Platelet smear estimate consistent with automated count. SUNQUEST Toxic Changes Present SUNQUEST 03/02/2019 10:3 4 AM EST 03/02/2019 10:40 AM EST Narrative SUNQUEST - 03/02/2019 11:27 AM EST Therapeutic decision making should be based on absolute values, rather than percentages. Therapeutic decision making should be based on absolute values, rather than percentages. Therapeutic decision making should be based on absolute values, rather than percentages. Therapeutic decision making should be based on absolute values, rather than percentages. Harlan Lamb MD LAB BLOOD ORDERABLES Final Result Performing Organization Address [facility] de Phone Number SUNQUEST * Lactate, venous (03/02/2019 10:34 AM EST) Lactate, Venous 2.1 0.5 - 2.2 mmol/L SUNQUEST 03/02/2019 10:3 4 AM EST 03/02/2019 10:40 AM EST Harlan Lamb MD LAB BLOOD ORDERABLES Final Result Performing Organization Address [facility] de Phone Number SUNQUEST * (ABNORMAL) Glucose Point of Care. (03/02/2019 10:07 AM EST) POCT Glucose 281(H) 74 - 99 mg/dL SUNQUEST Comment: Accuracy of a glucose result obtained from a capillary whole blood specimen relies upon adequate, non-compromised capillary blood flow.If the capillary glucose result is not consistent with the patient's clinical signs and symptoms, glucose testing should be repeated with either an arterial or venous sample on the glucometer or sent to the main laboratory for testing. SPEC TYPE Capillary SUNQUEST 03/02/2019 10:0 7 AM EST 03/02/2019 10:25 AM EST Ilan Hickey MD LAB BLOOD ORDERABL ES Final Result Performing Organization Address [facility] de Phone Number SUNQUEST documented in this encounter Visit Diagnoses Diagnosis Sepsis due to methicillin resistant Staphylococcus aureus (CMS/HCC) documented in this encounter
--- OUTSIDE RECORDS SUMMARY | 2024-02-23 19:01 | XMS_ITS ---
Author Organization [facility] Address [address] [place] [address] Care Team Providers Care Sack Filler Name Role Phone Pcp, No Primary Care Provider Ceci Pereira LPN Unavailable Unavailable Transitional Care Management Status:Closed (Closed) Start date:02/16/2023 Enrollment date:02/16/2023 Enrollment reason:Identified using hospital discharge data End date:03/18/2023 Close reason:Patient graduated Overview This episode type is for outpatient care managers enrolling patients in the CMS Transitional Care Management program. Continued Care and Services Coordination
--- OUTSIDE RECORDS SUMMARY | 2024-02-23 19:01 | XMS_ITS | Encounter Summary ---
Author Organization [facility] Address [address] [place] [address] Care Team Providers Care Sock Boarder Name Role Phone Unavailable Primary Care Provider Unavailabl e Encounter Details Date Type Department Care Team (Late Contact Info) Description 02/07/2016 [facility] Vitals Encounter [facility] OUTPATIENT CONVERSIONS [address] [place] [address] ProviderRobinson MD [address] [place] [id number] Social History Tobacco Use Types Packs/Day Years [...] Pressure - - Pulse - - Temperature - - Respiratory Rate - - Oxygen Saturation - - Inhaled Oxygen Concentration - - Weight 90.8 kg (200 lb 2.1 oz) 02/07/2016 10:47 AM EST Height 182.9 cm (6') 02/07/2016 10:47 AM EST Body Mass Index 27.14 02/07/2016 10:47 AM EST documented in this encounter Plan of Treatment Upcoming Encounters Date Type Department Care Team (Late Contact Info) Description 03/07/2024 1:40 PM EST Office Visit [facility] [place] [address], [address] [place] [id number] Naeem Blunt MD [address] [place] [id number] documented as of this encounter Visit Diagnoses Not on filedocumented in this encounter
--- OUTSIDE RECORDS SUMMARY | 2024-02-23 19:01 | XMS_ITS ---
Author Organization [facility] Address [address] [place] [address] Care Team Providers Care Vegetable Inspector Name Role Phone Pcp, No Primary Care Provider Ceci Pereira LPN Unavailable Unavailable Transitional Care Management Status:Closed (Closed) Start date:06/18/2023 Enrollment date:06/18/2023 Enrollment reason:Identified using hospital discharge data End date:06/18/2023 Close reason:Patient Declined Overview This episode type is for outpatient care managers enrolling patients in the CMS Transitional Care Management program. Continued Care and Services Coordination
[2024-02-23 19:13] VITALS: BP 126/90; PULSE 51; RESP 18; TEMP 36.6; O2SAT 100; BMI 25.6
--- NOTE | 2024-02-23 19:23 | ECG_ITS ---
APPROVED REPORT Exam: Resting ECG HR:87 bpm ECG Measurements Heart Rate 87 AXES ND 132 P 44 QRSd 127 QRS -40 QT 401 T 141 QTc 445 Conclusion SINUS RHYTHM POSSIBLE LEFT ATRIAL ENLARGEMENT [-0.1mV P-WAVE IN V1/V2] LEFT AXIS DEVIATION [QRS AXIS < -30] MODERATE INTRAVENTRICULAR CONDUCTION DELAY [105+ ms QRS DURATION, 80+ ms Q/S IN V1/V2, NO Q AND 60+ ms R IN I/aVL/V5/V6] ST DEVIATION AND MODERATE T-WAVE ABNORMALITY, CONSIDER LATERAL ISCHEMIA [-0.1+ mV T-WAVE IN I/aVL/V5/V6] ABNORMAL ECG UNCONFIRMED REPORT Electronically signed by : Ajay Ware MD 02/25/2024 14:12:29
--- NOTE | 2024-02-23 19:26 | XR_ITS ---
PROCEDURE INFORMATION: Exam: XR Chest Exam date and time: 02/23/2024 7:38 PM Age: 58 years old Clinical indication: Shortness of breath TECHNIQUE: Imaging protocol: Radiologic exam of the chest. Views: 1 view. COMPARISON: CR XR CHEST PORTABLE 11/04/2023 11:25 FINDINGS: Lungs: Bilateral mid to lower lung pulmonary opacities are indeterminate. Pleural spaces: Possible small pleural effusions. Heart/Mediastinum: Cardiomegaly.Coronary artery calcifications. Bones/joints: Unremarkable. IMPRESSION: 1. Bilateral mid to lower lung pulmonary opacities are indeterminate. Pulmonary venous congestion, aspiration pneumonitis, versus less likely atypical infection are considerations. 2. Possible small pleural effusions.
[2024-02-23 19:48] VITALS: BP 139/98; PULSE 93; RESP 17; TEMP 36.4; O2SAT 100
[2024-02-23 20:00] VITALS: PULSE 110
[2024-02-23 20:00] LABS: POC Glucose,Bedside 175 (70-110)
[2024-02-23 20:06] LABS: Albumin Level 3.7 g/dl (3.5-5.0); Chloride 103 mmol/L (98-107); Potassium 5.1 mmoL/L (3.5-5.1); Sodium 136 mmol/L (136-145)
[2024-02-23 20:09] LABS: Alanine Aminotransferase 28 U/L (12-78); Albumin/Globulin Ratio 1.2 (1.1-1.8); Anion Gap 16.1 mEq/L (5-15); Aspartate Amino Transferase 44 U/L (17-59); Blood Urea Nitrogen 45 mg/dl (9-20); Carbon Dioxide 22 mmol/L (22.0-30.0); Creatinine Clearance Estimated 34 mL/min (50-200); Estimated Glomerular Filt Rate 23 ml/min (>60); GFR (African American) 27 ML/MIN (>60); Total Protein,Serum 6.7 g/dl (6.3-8.2)
[2024-02-23 20:10] LABS: Alkaline Phosphatase 261 U/L (38-126); Bilirubin,Total 1.7 mg/dl (0.2-1.3); Glucose 140 mg/dl (74-100)
--- NOTE | 2024-02-23 20:21 | P.HP_ITS ---
<Statement entered by John Valencia MD - 02/26/24 17:42> I personally evaluated patient and agree with the plan of care as outlined by the MANAGER WELDING. History of Present Illness *Admission Date: 02/23/24 *Reason for visit:: Shortness of breath *History of present illness: Buzz Hurley is a 58-year-old male past medical history significant for HFrEF, ischemic cardiomyopathy, CAD status post stenting, CKD stage III type 2 diabetes poorly controlled, COPD on 2 L nasal cannula at baseline, HTN, PAD who presents emergency room at [facility] with complaints of worsening shortness of breath. Patient was seen at about a week ago for the same symptoms. Then went to [facility] last night and was discharged home. Reports that shortness of breath acutely worsened this afternoon around 2:00 PM. Denies any chest pain associated with this. No diaphoresis or nausea. Reports compliance with his diet, fluid restriction, diuretics. Denies any swelling in his lower extremities or his abdomen. Unable to quantify whether he has gained any weight. Patient is little bit of a poor historian. Patient was admitted for basically the same symptoms to this hospital back in March. Has a LifeVest but does not wear it, reports it is at home. Patient had an LHC done back in March, received 3 stents to the LAD, is supposed to been on DAPT. Patient is unable to tell me whether he has been taking these. Echo at that time showed an EF of 30%. Does not see a electroencephalogram technologist. Has been referred multiple times but has been unable to make the appointment. Does not appear that he has seen cardiology since March earlier this year. Denies any fever, cough, chest pain, abdominal pain. No focal neurodeficits noted. Denies tobacco use, alcohol use, illicit drug use. Lab work from [facility] showed an elevated potassium of 6, elevated creat inine at 3.2, baseline appears to be around 2.4. BNP elevated at 4800. Chest x-ray showed pulmonary edema. He was given 40 of Lasix, 5 units of insulin IV and transferred here. He is admitted to the hospitalist service for an acute exacerbation of CHF. [facility] Disclaimer: The information contained in this section may have been updated after the patient was seen, as this information can be updated by other users. 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 Above knee amputation of left lower extremity Acute blood loss anemia Asthma Atypical angina CAD in [place] artery Congestive heart failure COPD (chronic obstructive pulmonary disease) Diabetes mellitus Diabetes mellitus, type 2 HFrEF (heart failure with reduced ejection fraction) History of left heart catheterization (LHC) Hyperlipidemia Hypertension Ischemic cardiomyopathy LV dysfunction Peripheral arterial disease Stenosis of carotid artery Thoracic aneurysm without mention of rupture Surgical History History of cholecystectomy Status post above-knee amputation of left lower extremity Stented coronary artery Family History Family history of cancer Social History (Updated 02/23/24 @ 19:22 by Juan Adams RN) Smoking Status: Former smoker tobacco type: cigarettes packs per day: 2 alcohol intake: never current occupational status: disabled housing: house current occupational exposures/hazards: No Other 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 Have you received the Flu Vaccine for this season: No Have you received the Pneumonia Vaccine: No Review of Systems Review of Systems Review of systems:: pertinent systems reviewed and negative unless documented below *Cardiovascular Cardiovascular: Reports dyspnea and Reports dyspnea on exertion *Respiratory Respiratory: Reports dyspnea and Reports dyspnea on exertion Meds Home Medications and Allergies Home Medications ?Medication ?Instructions ?Recorded ?Confirmed ?Type gabapentin 600 mg tablet 600 mg PO TID 09/06/17 02/23/24 History albuterol sulfate 90 mcg/actuation 2 puff inhalation DAILY PRN 04/06/23 02/23/24 History aerosol inhaler Shortness Of Breath Or Wheezing entecavir 0.5 mg tablet 0.5 mg PO DIRECTED 04/06/23 02/23/24 History insulin aspart U-100 100 unit/mL 5 unit SQ TIDWMEAL 04/06/23 02/23/24 History (3 mL) subcutaneous pen (Novolog FlexPen U-100 Insulin aspart) insulin detemir U-100 100 unit/mL 13 unit SQ HS 04/06/23 02/23/24 History (3 mL) subcutaneous pen (Levemir FlexPen) isosorbide mononitrate 60 mg 60 mg PO DAILY 04/06/23 02/23/24 History tablet,extended release 24 hr loperamide 2 mg capsule 2 mg PO DAILY PRN Diarrhea 04/06/23 02/23/24 History nitroglycerin 0.4 mg sublingual 0.4 mg sublingual Q5M PRN Chest 04/06/23 02/23/24 History tablet Pain umeclidinium 62.5 mcg/actuation 1 inh inhalation DAILY 04/06/23 02/23/24 History blister powder for inhalation (Incruse Ellipta) atorvastatin 80 mg tablet 80 mg PO DAILY 30 days #30 tabs 04/09/23 02/23/24 Rx carvedilol 12.5 mg tablet 12.5 mg PO BID 30 days #60 tabs 04/09/23 02/23/24 Rx hydralazine 100 mg tablet 100 mg PO TID 30 days #90 tabs 04/12/23 02/23/24 Rx bumetanide 2 mg tablet 2 mg PO DAILY 02/23/24 02/23/24 History isosorbide dinitrate 10 mg tablet 10 mg PO TID 02/23/24 02/23/24 History mometasone-formoterol HFA 100 2 inh inhalation BID 02/23/24 02/23/24 History mcg-5 mcg/actuation aerosol inhaler (Dulera) New Prescriptions to Start Prescriptions: Allergies Allergy/AdvReac Type Severity Reaction Status Date / Time Penicillins Allergy Verified 04/11/23 14:42 Exam Data for Last 24 hours Vital signs and Labs for Last 24 Hours: Temp Pulse Resp BP Pulse Ox O2 Del Method O2 Flow Rate 97.6 F 93 H 17 139/98 H 100 Nasal Cannula 2 02/23/24 19:48 02/23/24 19:48 02/23/24 19:48 02/23/24 19:48 02/23/24 19:48 02/23/24 19:48 02/23/24 19:48 Laboratory Results - last 24 hr 02/23/24 19:49: Sodium 136, Potassium 5.1, Chloride 103, Carbon Dioxide 22, Anion Gap 16.1 H, BUN 45 H, Creatinine 2.90 H, Estimated Creat Clear 34, Estimated GFR 23 L, Est GFR ( Amer) 27 L, Glucose 140 H, Lactate 4.0 H, Calcium 9.0, Total Bilirubin 1.7 H, AST 44, ALT 28, Alkaline Phosphatase 261 H, Total Protein 6.7, Albumin 3.7, Globulin 3.0, Albumin/Globulin Ratio 1.2 02/23/24 19:52: POC Glucose 175 H I & O for Last 24 hours: Intake & Output 02/20/24 02/21/24 02/22/24 02/23/24 23:59 23:59 23:59 23:59 Intake Total 240 / 240 Balance 240 / 240 Weight 85.729 kg Constitutional Constitutional: no acute distress *Routine HEENT Exam Head: Present normocephalic Eye: Present EOMI and PERRL ENT: Present mucous membranes moist *Routine Neck Exam Neck: Present supple; Absent lymphadenopathy *Routine Respiratory Exam Respiratory: Present crackles, normal respiratory effort and able to speak in complete sentences *Routine Cardiovascular Exam Cardiovascular: Present RRR *Routine Abdominal Exam Abdominal: Present soft and normoactive bowel sounds; Absent tenderness *Routine Rectal Exam Rectal:: deferred *Routine Genitalia Exam Genitalia:: deferred *Routine Extremities Exam Comments: L AKA, R LE with chronic changes from PAD, erythema,, see media for pictures *Routine Skin Exam Skin: Present warm; Absent rash *Routine Neurological Exam Neurological: Present alert and oriented X3 Assessment and Plan *Assessment and plan (1) HFrEF (heart failure with reduced ejection fraction): Status: Acute Category: Medical Code(s): I50.20 - Unspecified systolic (congestive) heart failure (2) Ischemic cardiomyopathy: Status: Acute Category: Medical Code(s): I25.5 - Ischemic cardiomyopathy (3) Peripheral arterial disease: Status: Acute Category: Medical Code(s): I73.9 - Peripheral vascular disease, unspecified (4) Hyperlipidemia: Status: Acute Qualifiers: Hyperlipidemia type: mixed hyperlipidemia Qualified Code(s): E78.2 - Mixed hyperlipidemia Category: Medical Code(s): E78.5 - Hyperlipidemia, unspecified (5) Diabetes mellitus: Status: Acute Qualifiers: Diabetes mellitus type: type 2 Diabetes mellitus half-way insulin use: with intermediate manager use Diabetes mellitus complication status: without complication Qualified Code(s): E11.9 - Type 2 diabetes mellitus without complications; Z79.4 - half-way (current) use of insulin Category: Medical Code(s): E11.9 - Type 2 diabetes mellitus without complications (6) COPD (chronic obstructive pulmonary disease): Status: Acute Qualifiers: COPD type: chronic bronchitis Chronic bronchitis type: unspecified Qualified Code(s): J42 - Unspecified chronic bronchitis Category: Medical Code(s): J44.9 - Chronic obstructive pulmonary disease, unspecified (7) Hypertension: Status: Acute Qualifiers: Hypertension type: primary hypertension Qualified Code(s): I10 - Essential (primary) hypertension Category: Medical Code(s): I10 - Essential (primary) hypertension (8) Non-STEMI (non-ST elevated myocardial infarction): Status: Acute Category: Medical Code(s): I21.4 - Non-ST elevation (NSTEMI) myocardial infarction Plan Assessment: This is a 58-year-old male being admitted for acute on chronic CHF exacerbation. On my exam, patient is sitting up in bed in no acute distress. On his baseline 2 L nasal cannula. No complaints at this time. Plan: Admit to inpatient-[facility] Acute exacerbation of systolic heart failure NSTEMI CAD status post 3 stents in March Ischemic cardiomyopathy -Telemetry -Continue with Lasix twice daily, patient was placed on a nitro drip the last admission. He is currently diuresing and states her shortness of breath has improved. -1500 cc fluid restriction -Serial troponins, elevated troponin likely secondary to demand ischemia from CHF exacerbation as well as elevated renal function. Patient denying any sort of chest pain. -Consult cardiology -EKG as needed -Repeat echo in the morning, last echo done in March showed a stable decreased LVEF of 30% -Patient was supposed to be on DAPT, will restart this. Patient unable to tell me whether he has been taking these medications -Continue isosorbide, statin, beta-stacy CKD stage 4 -Creatinine is at baseline -Avoid nephrotoxic medications -Monitor BUN/creatinine -Renal dose medications as appropriate Type 2 diabetes Diabetic neuropathy -Last A1c was 7.5, will repeat this -Continue Lantus at 13 units nightly -SSI for additional glycemic control -Continue gabapentin COPD -Not in acute exacerbation, on baseline oxygen requirements -DuoNebs as needed -Continue Dulera -Maintain SpO2 greater than 90% HTN HLD -Continue statin, beta-stacy, hydralazine DVT prophylaxis: Heparin CODE STATUS: Full code Surrogate decision maker: Saurabh [phone] Skin: Low risk Estimate length of stay: Greater than 2 midnights
[2024-02-23 20:27] VITALS: O2SAT 100
[2024-02-23] MEDS: FUROSEMIDE 40MG/4ML VIAL 40 MG IV (20:27)
[2024-02-23] MEDS: CARVEDILOL 12.5MG TABLET 12.5 MG PO (20:27)
[2024-02-23] MEDS: GABAPENTIN 600MG TABLET 300 MG PO (20:27)
[2024-02-23 20:28] LABS: Troponin I 0.29 ng/ml (0.00-0.034)
[2024-02-23] MEDS: humaLOG 100 UNITS/ML 10ML VIAL (SSI) SUBCUT (20:29)
[2024-02-23] MEDS: HYDRALAZINE 100 MG 100 EACH PO (20:29)
[2024-02-23] MEDS: INSULIN DETEMIR 100 UNIT/ML 3ML FLEXPEN 13 UNIT SUBCUT (20:30)
[2024-02-23] MEDS: IPRATROPIUM/ALBUTEROL 3 ML NEB IH (22:52)
[2024-02-23 22:54] VITALS: PULSE 87; PULSE 90
--- NOTE | 2024-02-23 23:15 | PC.NURSE ---
Patient called out about 2224 stating he is still feeling short of breath. Patients o2 on 2L NC was at 100%. Per patients request, patient was placed on 3L NC at this time. Patient also requested breathing treatment, was administered per MAY. After duone, patient states he is still short of breath and complaining of epigastric pain. EKG obtained and notified hospitalist. No new orders given. Patient now resting in bed comfortably but states he is still feeling short of breath on 3L NC.
--- NOTE | 2024-02-23 23:15 | ECG_ITS ---
APPROVED REPORT Exam: Resting ECG HR:74 bpm ECG Measurements Heart Rate 74 AXES WI 152 P 53 QRSd 124 QRS -15 QT 444 T 207 QTc 471 Conclusion SINUS RHYTHM WITH OCCASIONAL VENTRICULAR PREMATURE COMPLEXES WITH OCCASIONAL SUPRAVENTRICULAR PREMATURE COMPLEXES POSSIBLE ANTERIOR MYOCARDIAL INFARCTION , OF INDETERMINATE AGE [30 ms Q WAVE IN V3/V4, OR R < 0.2 mV IN V4] MODERATE T-WAVE ABNORMALITY, CONSIDER LATERAL ISCHEMIA [-0.1+ mV T-WAVE IN I/aVL/V5/V6] MODERATE T-WAVE ABNORMALITY, CONSIDER INFERIOR ISCHEMIA [-0.1+ mV T-WAVE IN II/aVF] ABNORMAL ECG UNCONFIRMED REPORT Electronically signed by : Ajay Ware MD 02/25/2024 14:12:23
[2024-02-23 23:27] LABS: Lactic Acid 2.7 mmol/L (0.7-2.1)
[2024-02-23 23:30] LABS: Hemoglobin A1C 7.8 % (4.0-6.0)
[2024-02-23 23:56] LABS: NT Pro Brain Natriuretic Pep. 79400 pg/mL (0-125)
[2024-02-24] VITALS (7 sets, daily range): BP systolic 101–118; BP diastolic 55–75; PULSE 50–74; RESP 16–20; TEMP 36.3–36.6; O2SAT 98–100; BMI 25.3
--- NOTE | 2024-02-24 00:36 | PC.NURSE ---
Lab notified they could draw 2230 troponin with 2300 labs. 2230 troponin was not collected and lab was contacted for results at 0009 and lab stated they did not have an order for 2230 troponin. New order entered for 2300. Awaiting results.
[2024-02-24 00:47] LABS: Troponin I 0.26 ng/ml (0.00-0.034)
[2024-02-24 01:20] LABS: Reflex Lactic Add Lactic Reflex
[2024-02-24 02:20] LABS: Troponin I 0.27 ng/ml (0.00-0.034)
--- NOTE | 2024-02-24 02:25 | PC.NURSE ---
Call from lab to report critical Troponin of 0.27. Reported to EVETTE Sims.
[2024-02-24 03:35] LABS: Chloride 106 mmol/L (98-107); Sodium 136 mmol/L (136-145)
[2024-02-24 03:38] LABS: Blood Urea Nitrogen 48 mg/dl (9-20); Calcium 8.7 mg/dl (8.4-10.2); Carbon Dioxide 23 mmol/L (22.0-30.0); Creatinine Clearance Estimated 33 mL/min (50-200); Estimated Glomerular Filt Rate 22 ml/min (>60); GFR (African American) 26 ML/MIN (>60); Glucose 112 mg/dl (74-100); Lactic Acid Follow Up (RFLX 1) 1.4 mmol/L (0.7-2.1); Phosphorous 5.2 mg/dl (2.5-4.5)
[2024-02-24 03:40] LABS: Basophils % 0.2 % (0.1-2.0); Eosinophils % 0.5 % (0.1-12.0); Hematocrit 35.8 % (42.0-52.0); Hemoglobin 11.7 g/dL (14.1-18.0); Lymphocytes # 0.9 K/mm3 (0.7-4.5); Mean Corpuscular HGB Conc 32.8 g/dL (31.8-35.4); Mean Corpuscular Hemoglobin 27.2 pg (27.0-31.2); Mean Corpuscular Volume 83.2 fl (80-94); Mean Platelet Volume 9.6 fl (7.4-10.4); Monocytes # 0.5 K/mm3 (0.1-1.0); Monocytes % 9.2 % (1.7-9.3); Neutrophils # 3.8 K/mm3 (1.8-7.8); Neutrophils % 73.1 % (37.0-80.0); Platelet Count 169 K/mm3 (142-424); Red Blood Count 4.31 M/mm3 (4.60-6.20); Red Cell Distribution Width 18.5 % (11.5-17.5); White Blood Count 5.2 K/mm3 (4.8-10.8)
--- NOTE | 2024-02-24 05:18 | PC.NURSE ---
58 yo male pt is A/O X 3. He repeatedly reported increased SOA earlier in the shift and reported that he wore CPAP at home. He felt like that was the reason he could not breath well. Order for BiPAP obtained. RT followed through with BiPAP and after approx 5 mins, pt did not want to wear and requested nasal cannula. Throughout pts complaints of SOA, 02 sats remain at 100%. 02 on at 3 liters per nc. Email Campaign Specialist instructed pt in use of urinal to monitor output. Pts right LE dressed by previous nurse due to numerous open areas/bleeding. Pts HR has been in the 50s at times while sleeping, otherwise VS unremarkable. NSR with PVCs per tele. FSBS at 9 pm 175m covered with insulin per MAR
[2024-02-24 06:17] LABS: POC Glucose,Bedside 110 (70-110)
[2024-02-24] MEDS: ENOXAPARIN 40MG/0.4ML SYRINGE 40 MG SUBCUT (09:11)
[2024-02-24] MEDS: CARVEDILOL 12.5MG TABLET 12.5 MG PO (09:12)
[2024-02-24] MEDS: FUROSEMIDE 40MG/4ML VIAL 40 MG IV (09:12)
[2024-02-24] MEDS: HYDRALAZINE HCL 25MG TABLET 100 MG PO ×2 (09:13→11:46)
[2024-02-24] MEDS: GABAPENTIN 600MG TABLET 300 MG PO ×2 (09:13→12:00)
[2024-02-24] MEDS: ISOSORBIDE MONO 60MG TAB.ER.24H 60 MG PO (09:13)
[2024-02-24] MEDS: FLUTICASONE/SALMETEROL 250/50MCG DISKUS 1 PUFF IH ×2 (09:23→18:02)
--- NOTE | 2024-02-24 10:21 | ECG_ITS ---
APPROVED REPORT Exam: Resting ECG HR:57 bpm ECG Measurements Heart Rate 57 AXES OH 161 P 54 QRSd 124 QRS -14 QT 499 T 269 QTc 493 Conclusion SINUS BRADYCARDIA POSSIBLE LEFT ATRIAL ENLARGEMENT [-0.1mV P-WAVE IN V1/V2] MODERATE INTRAVENTRICULAR CONDUCTION DELAY [105+ ms QRS DURATION, 80+ ms Q/S IN V1/V2, NO Q AND 60+ ms R IN I/aVL/V5/V6] MODERATE T-WAVE ABNORMALITY, CONSIDER LATERAL ISCHEMIA [-0.1+ mV T-WAVE IN I/aVL/V5/V6] MODERATE T-WAVE ABNORMALITY, CONSIDER INFERIOR ISCHEMIA [-0.1+ mV T-WAVE IN II/aVF] ABNORMAL ECG UNCONFIRMED REPORT Electronically signed by : Ajay Ware MD 02/25/2024 14:12:14
[2024-02-24 10:25] LABS: POC Glucose,Bedside 200 (70-110)
--- NOTE | 2024-02-24 10:37 | PC.NURSE ---
Ekg ordered and dr. Valencia reviewing results.
[2024-02-24] MEDS: FUROSEMIDE 100MG/10ML VIAL 80 MG IV ×2 (10:56→15:53)
[2024-02-24 11:11] LABS: PTT Heparin (inpatient only) 25.8 Seconds (50-75)
[2024-02-24 11:23] LABS: Troponin I 0.17 ng/ml (0.00-0.034)
[2024-02-24 12:13] LABS: NT Pro Brain Natriuretic Pep. 59900 pg/mL (0-125)
--- NOTE | 2024-02-24 13:26 | EXP.PN ---
Subjective *Date: 02/24/24 *Time: 13:26 Interval history: Patient states his breathing is slightly better today, but very fatigued today. Did not sleep well last night. Will schedule trazodone tonight. Exam Data for Last 24 hours Vital signs and Labs for Last 24 Hours: Temp Pulse Resp BP Pulse Ox O2 Del Method O2 Flow Rate 97.5 F L 62 18 118/67 98 Nasal Cannula 3 02/24/24 12:00 02/24/24 12:00 02/24/24 12:00 02/24/24 12:00 02/24/24 12:00 02/24/24 13:00 02/24/24 13:00 Laboratory Results - last 24 hr 02/23/24 19:49: Sodium 136, Potassium 5.1, Chloride 103, Carbon Dioxide 22, Anion Gap 16.1 H, BUN 45 H, Creatinine 2.90 H, Estimated Creat Clear 34, Estimated GFR 23 L, Est GFR ( Amer) 27 L, Glucose 140 H, Lactate 4.0 H, Calcium 9.0, Total Bilirubin 1.7 H, AST 44, ALT 28, Alkaline Phosphatase 261 H, Troponin I 0.29 H, Total Protein 6.7, Albumin 3.7, Globulin 3.0, Albumin/Globulin Ratio 1.2 02/23/24 19:52: POC Glucose 175 H 02/23/24 23:03: Hemoglobin A1c 7.8 H, Lactate 2.7 H, Troponin I 0.26 H, NT-Pro-B Natriuret Pep 55485 H 02/24/24 01:30: Troponin I 0.27 H 02/24/24 03:20: WBC 5.2, RBC 4.31 L, Hgb 11.7 L, Hct 35.8 L, MCV 83.2, MCH 27.2, MCHC 32.8, RDW 18.5 H, Plt Count 169, MPV 9.6, Neut % (Auto) 73.1, Lymph % (Auto) 17.0, [place] % (Auto) 9.2, Eos % (Auto) 0.5, Baso % (Auto) 0.2, Neut # (Auto) 3.8, Lymph # (Auto) 0.9, [place] # (Auto) 0.5, Eos # (Auto) 0.0, Baso # (Auto) 0.0, Sodium 136, Potassium 5.0, Chloride 106, Carbon Dioxide 23, Anion Gap 12.0, BUN 48 H, Creatinine 3.00 H, Estimated Creat Clear 33, Estimated GFR 22 L, Est GFR ( Amer) 26 L, Glucose 112 H, Lactate 1.4, Calcium 8.7, Phosphorus 5.2 H 02/24/24 06:10: POC Glucose 110 02/24/24 10:18: POC Glucose 200 H 02/24/24 10:40: APTT 25.8 L, Troponin I 0.17 H, NT-Pro-B Natriuret Pep 99050 H I & O for Last 24 hours: Intake & Output 02/21/24 02/22/24 02/23/24 02/24/24 23:59 23:59 23:59 23:59 Intake Total 240 / 240 720 / 720 Output Total 175 / 175 600 / 600 Balance 65 / 65 120 / 120 Weight 85.729 kg 84.867 kg Constitutional Constitutional: no acute distress *Routine HEENT Exam Head: Present normocephalic Eye: Present EOMI and PERRL ENT: Present mucous membranes moist *Routine Neck Exam Neck: Present supple; Absent lymphadenopathy *Routine Respiratory Exam Respiratory: Present CTA bilaterally *Routine Cardiovascular Exam Cardiovascular: Present RRR *Routine Abdominal Exam Abdominal: Present soft and normoactive bowel sounds; Absent tenderness *Routine Extremities Exam Extremities: Present edema; Absent cyanosis or clubbing Comments: Right lower extremity pitting edema 2+. Left AKA. *Routine Skin Exam Skin: Present warm; Absent rash *Routine Neurological Exam Neurological: Present alert and oriented X3 Assessment and Plan *Assessment and plan (1) HFrEF (heart failure with reduced ejection fraction): Status: Acute Category: Medical Code(s): I50.20 - Unspecified systolic (congestive) heart failure (2) Ischemic cardiomyopathy: Status: Acute Category: Medical Code(s): I25.5 - Ischemic cardiomyopathy (3) Peripheral arterial disease: Status: Acute Category: Medical Code(s): I73.9 - Peripheral vascular disease, unspecified (4) Hyperlipidemia: Status: Acute Qualifiers: Hyperlipidemia type: mixed hyperlipidemia Qualified Code(s): E78.2 - Mixed hyperlipidemia Category: Medical Code(s): E78.5 - Hyperlipidemia, unspecified (5) Diabetes mellitus: Status: Acute Qualifiers: Diabetes mellitus type: type 2 Diabetes mellitus termite renewal inspector insulin use: with penitentiary use Diabetes mellitus complication status: without complication Qualified Code(s): E11.9 - Type 2 diabetes mellitus without complications; Z79.4 - jail (current) use of insulin Category: Medical Code(s): E11.9 - Type 2 diabetes mellitus without complications (6) COPD (chronic obstructive pulmonary disease): Status: Acute Qualifiers: COPD type: chronic bronchitis Chronic bronchitis type: unspecified Qualified Code(s): J42 - Unspecified chronic bronchitis Category: Medical Code(s): J44.9 - Chronic obstructive pulmonary disease, unspecified (7) Hypertension: Status: Acute Qualifiers: Hypertension type: primary hypertension Qualified Code(s): I10 - Essential (primary) hypertension Category: Medical Code(s): I10 - Essential (primary) hypertension (8) Non-STEMI (non-ST elevated myocardial infarction): Status: Acute Category: Medical Code(s): I21.4 - Non-ST elevation (NSTEMI) myocardial infarction Plan Assessment: This is a 58-year-old male being admitted for acute on chronic CHF exacerbation. On my exam, patient is sitting up in bed in no acute distress. On his baseline 2 L nasal cannula. No complaints at this time. Plan: Admit to inpatient[facility] [place] #Acute on chronic hypoxic respiratory failure HFrEF exacerbation NSTEMI type II ? History of CAD status post 3 stents in March. ? Troponins plateaued around 0.26, down to 0.17 today. Repeat EKG today showed T wave inversions and inferior leads. No chest pain, shortness of breath. ? Discussed with Dr. Mcfadden, at this time this likely represents type II NSTEMI in the setting of HFrEF exacerbation. Will increase diuresis regimen as patient has had minimal output. ? Increased Lasix 80 mg twice daily. 1500 cc fluid restriction - ECHO pending, last echo done in March showed a stable decreased LVEF of 30% - Patient was supposed to be on DAPT, will restart this. - Continue isosorbide, statin, beta-stacy. ? Wean O2 as tolerated, baseline 2 L. CKD stage 4 -Creatinine increased from 2.9-3.0 in the setting of diuresis. Baseline around 2.6. -Avoid nephrotoxic medications -Monitor BUN/creatinine -Renal dose medications as appropriate Type 2 diabetes Diabetic neuropathy -Last A1c was 7.5, will repeat this -Continue Lantus at 13 units nightly -SSI for additional glycemic control -Continue gabapentin, decreased to 300 mg twice daily in the setting of CKD. COPD -Not in acute exacerbation, on baseline oxygen requirements -DuoNebs as needed -Continue Dulera -Maintain SpO2 greater than 90% HTN HLD -Continue statin, beta-stacy, hydralazine DVT prophylaxis: Heparin CODE STATUS: Full code Surrogate decision maker: Saurabh [phone] Skin: Low risk Estimate length of stay: Greater than 2 midnights
[2024-02-24] MEDS: CLOPIDOGREL 75MG TAB 75 MG PO (14:13)
[2024-02-24] MEDS: ASPIRIN EC 81MG TABLET 81 MG PO (14:13)
--- NOTE | 2024-02-24 15:18 | PC.NURSE ---
Aox 4, 02-3L NC, fsbg achs, 20G L FA SL, 1,500 FLUID rest, R foot with swelling L aka, consult cardiology and podiatry, bed alarm active.
--- OUTSIDE RECORDS SUMMARY | 2024-02-24 15:27 | XMS_ITS | Clinical Summary ---
Author Organization [facility] Address [address] [place] [address] Care Team Providers Care Rug Cutter Helper Name Role Phone Provider, No Known Primary [...] e 01/06/2023 Family and Community Support Answer Arf e Recorded Help with Day-to-Day Activities Not [...] Completed 02/03/2023 Insurance MEDICARE A ONLY [place]ICAID [place] Care Teams Rug Cutter Helper Relationship Specialty Start Date End Date Provider, No Known [facility] [place] [address] PCP - General 04/06/23
--- OUTSIDE RECORDS SUMMARY | 2024-02-24 15:27 | XMS_ITS | Encounter Summary ---
Author Organization [facility] Address [address] [place] [address] Care Team Providers Care Drying Room Attendant Name Role Phone Randy Escalante MD Primary Care Provider Reason for Visit * Reason Onset Date Comments TAYO FERRARA APRN-- HOME HEALTH 02/12/2023 Encounter Details Date Type Department Care Team (Late st Contact Info) Description 02/12/2023 Telephone [facility] [address] [place] [phone] Tayo Ferrara APRN [address] [place] [id number] TAYO FERRARA APRN-- HOME HEALTH Social History [...] Rep - 02/12/2023 2:20 PM EST Caller: [facility] Relationship: Other Best call back number: [phone] What is the best time to reach you: ANYTIME Who are you requesting to speak with (clinical staff, provider, specific staff member): CLINICAL What was the call regarding: LEIA WITH [facility] CALLED ASKING FOR TAYO FERRARA APRN TO CALL AND LET THEM KNOW IF TAYO FERRARA APRN WILL BE THE PHYSICAN THAT WILL BE AUTHORIZING AND SIGNING FOR PATIENT TO HAVE HOME HEALTH. PLEASE REACH OUT TO ANABEL WITH [facility]. PATIENT IS DISCHARGING FROM [facility] 02-12-23 Is it okay if the provider responds through MyChart: CALL documented in this encounter Plan of Treatment Not on file documented as of this encounter Visit Diagnoses Not on filedocumented in this encounter Care Teams Drying Room Attendant Relationship Specialty Start Date End Date Randy Escalante MD PCP - General Family Medicine 09/17/17 04/05/23 documented as of this encounter
--- OUTSIDE RECORDS SUMMARY | 2024-02-24 15:27 | XMS_ITS | Encounter Summary ---
Author Organization [facility] Address [address] [place] [address] Care Team Providers Care Psychology Department Chair Name Role Phone Randy Escalante MD Primary Care Provider Reason for Visit * Reason Comments TB Test Encounter Details Date Type Department Care Team (Latest Contact Info) Description 08/04/2018 9:15 AM EDT Clinical Support [facility] [address] [facility] [place] [address] Visit for TB skin test (Primary Dx) [...] 9:02 AM EDT) TB Skin Test Negative [facility] Induration 0 0 - 10 mm [facility] Injection Date & Time 08/04/18 9am [facility] Read Date & Time 08/06/18 9:02 am [facility] Blood 08/06/2018 9:02 AM EDT us Mushtaq Mandie V, CLAIMS ASSISTANT POINT OF CARE TEST ORDERABL ES Final Result [facility]
[address] [place] [address], documented in this encounter Visit Diagnoses Diagnosis Visit for TB skin test- Primary documented in this encounter Care Teams Psychology Department Chair Relationship Specialty Start Date End Date Randy Escalante MD PCP - General Family Medicine 09/17/17 04/05/23 documented as of this encounter
--- OUTSIDE RECORDS SUMMARY | 2024-02-24 15:27 | XMS_ITS | Encounter Summary ---
Author Organization [facility] Address [address] [place] [address] Care Team Providers Care Grinder Tender Name Role Phone Unavailable Primary Care Provider Unavailabl e Reason for Visit * Reason Comments TB Test Encounter Details Date Type Department Care Team (Late st Contact Info) Description 07/24/2016 5:00 PM EDT Office Visit [facility] [address] [place] [address] Visit for TB skin test (Primary Dx) [...]
--- OUTSIDE RECORDS SUMMARY | 2024-02-24 15:27 | XMS_ITS | Clinical Summary ---
Author Organization [employer] Address [address] [place] [address] Care Team Providers Care Assurance Associate Name Role Phone Unavailable Primary Care Provider [...] your living situation today? I have a [facility] place to live 10/29/2023 Think about the [...] Do you speak a language other than [place] at [facility]? No 10/29/2023 Do you want help [...] - 249 mg/dL 10/30/2023 10:14 AM EDT [facility] Cholesterol 195 0 - 199 mg/dL 10/30/2023 10:14 AM EDT [facility] Comment: 200 to 239 mg/dL = ??Moderate (borderline) >239 mg/dL ? = ??High HDL 56 >=40 mg/dL 10/30/2023 10:14 AM EDT [facility] Comment: >=60 mg/dL = Desirable <40 mg/dL ??= Increased Risk All other components are listed individually or are calculations VLDL 24 5 - 40 mg/dL 10/30/2023 10:14 AM EDT [facility] Cholesterol/HDL ratio 3.5(H) 0.0 - 3.2 10/30/2023 10:14 AM EDT [facility] LDl/HDL Ratio 2 0 - 4 10/30/2023 10:14 AM EDT [facility] RISK COMP 3 10/30/2023 10:14 AM EDT [facility] LDL Cholesterol, Calculated 115(H) 0 - 99 mg/dL 10/30/2023 10:14 AM [facility] Blood Venipuncture / Unknown 10/30/2023 4:39 AM EDT 10/30/2023 5:25 AM EDT Everett Reed APRN LAB BLOOD ORDERABLES Final Result [facility] [address] [phone] from Last 3 Months or Most Recently Relevant to Health Maintenance Insurance MEDICAID [place] MEDICARE PART A B Advance Directives For more information, please contact: [phone] * Full Code (Latest Code Status on File) Date Activated Date Inactivated Comments 12/08/2023 8:20 PM * Full Code Date Activated Date Inactivated Comments 10/29/2023 3:09 PM 11/08/2023 4:20 PM
--- OUTSIDE RECORDS SUMMARY | 2024-02-24 15:27 | XMS_ITS | Encounter Summary ---
Author Organization [facility] Address [address] [place] [address] Care Team Providers Care Weaver Tire Cord Name Role Phone Randy Escalante MD Primary Care Provider Reason for Visit * Consultation (Routine) - Closed Specialty Diagnoses / Procedures Referred By Neno noel Referred To Contact Neurosurgery Diagnoses DDD (degenerative disc disease), lumbar Protruded lumbar disc Procedures CONSULT Randy Escalante MD Phone: tel: fax: Jesus Israel MD [address] [place] [address] Phone: tel: fax: Referral ID Status Reason Start Date Expiration Date Visits Re quested Visits Authorized [id number] Closed 08/21/2017 08/21/2018 1 1 Encounter Details Date Type Department Care Team (Late st Contact Info) Description 09/17/2017 11:30 AM EDT Office Visit [facility] [address] [place] [id number] Jesus Israel MD [address] [place] [address] Lumbar radiculopathy (Primary Dx); Bulging lumbar disc; [...] region documented in this encounter Care Teams Weaver Tire Cord Relationship Specialty Start Date End Date Randy Escalante MD PCP - General Family Medicine 09/17/17 04/05/23 documented as of this encounter
--- OUTSIDE RECORDS SUMMARY | 2024-02-24 15:27 | XMS_ITS | Referral Summary ---
Author Organization [employer] Address [address] [place] [address] Care Team Providers Care Manager Float Name Role Phone Unavailable Primary Care Provider [...] your living situation today? I have a [facility] place to live 10/29/2023 Think about [...] Do you speak a language other than Niue[place] at [facility]? No 10/29/2023 Do you want help [...] - 249 mg/dL 10/30/2023 10:14 AM EDT [facility] Cholesterol 195 0 - 199 mg/dL 10/30/2023 10:14 AM EDT [facility] Comment: 200 to 239 mg/dL = ??Moderate (borderline) >239 mg/dL ? = ??High HDL 56 >=40 mg/dL 10/30/2023 10:14 AM EDT [facility] Comment: >=60 mg/dL = Desirable <40 mg/dL ??= Increased Risk All other components are listed individually or are calculations VLDL 24 5 - 40 mg/dL 10/30/2023 10:14 AM EDT [facility] Cholesterol/HDL ratio 3.5(H) 0.0 - 3.2 10/30/2023 10:14 AM EDT [facility] LDl/HDL Ratio 2 0 - 4 10/30/2023 10:14 AM EDT [facility] RISK COMP 3 10/30/2023 10:14 AM EDT [facility] LDL Cholesterol, Calculated 115(H) 0 - 99 mg/dL 10/30/2023 10:14 AM [facility] Blood Venipuncture / Unknown 10/30/2023 4:39 AM EDT 10/30/2023 5:25 AM EDT Everett Reed APRN LAB BLOOD ORDERABLES Final Result [facility] [address] [place] [address], [facility] [phone] from Last 3 Months or Most Recently Relevant to Health Maintenance Insurance MEDICAID [place] MEDICARE PART A B Advance Directives For more information, please contact: [phone] * Full Code (Latest Code Status on File) Date Activated Date Inactivated Comments 12/08/2023 8:20 PM * Full Code Date Activated Date Inactivated Comments 10/29/2023 3:09 PM 11/08/2023 4:20 PM
--- OUTSIDE RECORDS SUMMARY | 2024-02-24 15:27 | XMS_ITS | Encounter Summary ---
Author Organization [facility] Address [address] [place] [address] Care Team Providers Care Medical Device Name Role Phone Unavailable Primary Care Provider Unavailabl e Reason for Visit * Reason Comments TB Test Encounter Details Date Type Department Care Team (Latest Contact Info) Description 07/27/2017 4:00 PM EDT Clinical Support [facility] [address] [place] [address] Visit for TB skin test (Primary Dx) [...] TB Skin Test (07/29/2017 2:45 PM EDT) [facility] Signature TB Skin Test Negative [facility] Induration 0 0 - 10 mm [facility] Blood 07/29/2017 2:45 PM EDT Holly Livingston TRAINING FACILITATOR POINT OF CARE TEST OR DERABLES Final Result [facility]
[address] [place] [address], documented in this encounter Visit Diagnoses Diagnosis Visit for TB skin test- Primary documented in this encounter
--- OUTSIDE RECORDS SUMMARY | 2024-02-24 15:27 | XMS_ITS | Encounter Summary ---
Author Organization [facility] Address [address] [place] [address] Care Team Providers Care Engagement Mgr Name Role Phone Randy Escalante MD Primary Care Provider Encounter Details Date Type Department Care Team (Late st Contact Info) Description 02/05/2023 5:00 AM EST Outside Facility Service [facility] C[facility] [address] [place] [address] Marcie Del Castillo MD [address] [place] [address] Social History Tobacco Use Types [...] on filedocumented in this encounter Care Teams Engagement Mgr Relationship Specialty Start Date End Date Randy Escalante MD PCP - General Family Medicine 09/17/17 04/05/23 documented as of this encounter
--- OUTSIDE RECORDS SUMMARY | 2024-02-24 15:27 | XMS_ITS | Encounter Summary ---
Author Organization [facility] Address [address] [place] [address] Care Team Providers Care Optical Engineer Name Role Phone Provider, No Known Primary Care Provider Unavail able Encounter Details Date Type Department Care Team (Late st Contact Info) Description 04/06/2023 5:00 AM EST Outside Facility Service [facility] [address] [place] [address] Marcie Del Castillo MD [address] [place] [address] Social History Tobacco Use Types [...] on filedocumented in this encounter Care Teams Optical Engineer Relationship Specialty Start Date End Date Provider, [place] [address] PCP - General 04/06/23 documented as of this encounter
--- OUTSIDE RECORDS SUMMARY | 2024-02-24 15:28 | XMS_ITS | Encounter Summary ---
[facility] Organization [facility] Address [address] [place] [address] Care Team Providers Care Grounds Cleaner Name Role Phone Unavailable Primary Care Provider Unavailabl e Reason for Visit * Auth/Cert (Routine) Specialty Diagnoses / Procedures Referred By Conternestine t Referred To Contact Diagnoses Acute on chronic diastolic CHF (congestive heart failure) (HCC) CHF [place] [address] [facility] [address] [place] [phone] Phone: tel: fax: [place] [address] [facility] [address] [place] [phone] Phone: tel: fax: Referral ID Status Reason Start Date Expiration Date Visits Re quested Visits Authorized [id number] 1 1 Encounter Details Date Type Department Care Team (Late st Contact Info) Description 10/29/2023 2:26 PM EDT - 11/08/2023 3:20 PM EDT Hospital Encounter [place] [address] Interventional Care Unit [address] [place] [address] Nohelia Deutsch, DO [address] [address] Bing Sebastian, DO [address] [address] Acute on chronic diastolic CHF (congestive heart [...] your living situation today? I have a [facility] place to live 10/29/2023 Think about [...] Do you speak a language other than Tanzanian at [facility]? No 10/29/2023 Do you want help [...] Bing Sebastian, - 11/08/2023 3:20 PM EDT [facility] Emergency Department physicians discharge summary Patient Name: Robert Hurley [...] has worsening symptoms. He was admitted to [facility] initially for heart failure exacerbation and upon [...] Your Medications These medications were sent to [facility] at [address] [facility] [address], [facility] [address] ?? metoprolol succinate 25 MG 24 hr [...] Respiratory Therapy, Electrophysiology, Electrophysiology - Cardiac 1401 [facility] [address] [facility] [address] Next Steps: Go in 1 month(s) Instructions: EP follow up 12/06/23 @3:00pm [facility] Specialty: Home Health Services, Home Therapy Services, Home Living Aide Services [address] [facility], [address] [facility] [address] Next Steps: Follow up Instructions: Home health agency [facility] [phone] Next Steps: Follow up Instructions: Company supplying oxygen Douglas Hurst MD Specialty: Family Medicine [address] [facility] 100 [facility] [address] Next Steps: Go on 11/11/2023 Instructions: Appt [...] through Care Everywhere. * Heart Failure Diagnosis Arqr-lz-Qxed (Tanzanian) * Heart Failure Action Plan (Tanzanian) * Heart Failure Self-Care Dpkn-uk-Cefg (Tanzanian) documented in this encounter Medications at Time [...] Dailey MD - 11/08/2023 3:20 PM EDT Receiver Bulk System: Chief Complaint: No chief complaint on file. [...] Insulin-dependent *Peripheral vascular disease History of left fkjej-oyv-zffc amputation (uses a prosthesis) *LECHUGA cirrhosis *COPD [...] Dailey MD 11/08/2023 8:27 PM * Tamara Wintesr RN - 11/08/2023 1:51 PM EDT 11/08/23 [...] Home Oxygen Name and Number [facility] [place] [address] Transportation Provider Cleve Date of sports equipment supervisor 11/08/23 Time of sports equipment supervisor 1500 11/08/23 1348 Final Discharge Plan PCP [...] Home Oxygen Name and Number [facility] [phone] Transportation Provider Cleve Date of sports equipment supervisor 11/08/23 Time of sports equipment supervisor 1500 Care Coordination Final Discharge Plan Final [...] Cardiology, Respiratory Therapy, Electrophysiology, Electrophysiology - Cardiac [address] [place] [address] [address] [place] [address] Next Steps: Go in 1 month(s) Instructions: EP follow up 12/06/23 @3:00pm Transporation Provider: (Alvin) Cleve CHRISTY Transporation Contact Name: Transportation Provider Phone: Date of sports equipment supervisor: (P) 11/08/23 Time of sports equipment supervisor: (P) 1500 Patient medically ready for discharge [...] Acute on chronic diastolic CHF (congestiveheart failure) ([facility]) [I50.33]. Past 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: Diagnosis Date ??? CHF (congestive heart failure) ([facility]) ??? CKD (chronic kidney disease) ??? COPD (chronic obstructive pulmonary disease) ([facility]) ??? Hx of AKA (above knee amputation), left ([facility]) No past surgical history on file. General [...] door duing the wheelchair. Message alsosent to human services case manager regarding these potential barriers, as well as [...] - 11/08/2023 - 2:14 PM EDT * Juliette Brandt, PT - 11/08/2023 11:28 AM EDT [...] - 11/08/2023 11:17 AM EDT Patient Name: Robret Hurley Jr. Date of : 1965 Insurance: Primary Coverage (Medicaid) Authorization number: [id number] Subscriber number: [id number] Admission Date: 10/29/2023 Admission Diagnosis: Acute on chronic diastolic CHF (congestive heart failure) (HCC) [I50.33] Hospital Room: [address] [place] [address] Requesting Transport Tamara Winters RN Oxygen Documentation [...] Destination Type: Destination Types: Home Destination Address: [address] [place] [address] Destination Date Transport is Needed: 11/08/23 Phone Number for [facility] Nurses Station: [phone] Can the patient pay for transportation? No * Monika Pennington MD - 11/07/2023 7:06 PM EDT Subjective History of Present Illness: Patient is very poor historian Robert Hurley Jr. is a 58 y.o. male with history of CKD 4 with base creatinine close to ~3, DM,HTN,CHF, left AKA ,difficulty accessing health care resources and keeping follow ups,noncompliance??who presented to [facility] on 10/25 for evaluation of several days of worsening shortness ofbreath and scrotal edema. He was admitted to [facility] for CHF exacerbation as above ,He had echocardiogram done showing EF of 20-25% and was transferred to [facility] for EP evaluation of AICD. ? [...] POC-GLUCOSE 163 (H) 70 - 110 mg/dL Marketing Strategy Manager [id number] Glucose, Nova Meter Status: Abnormal Collection Time: 11/07/23 7:38 AM Result Value Ref Range POC-GLUCOSE 115 (H) 70 - 110 mg/dL Marketing Strategy Manager [id number] Magnesium Status: Normal Collection Time: 11/07/23 8:39 [...] POC-GLUCOSE 180 (H) 70 - 110 mg/dL Marketing Strategy Manager [id number] Glucose, Nova Meter Status: Abnormal Collection Time: 11/07/23 5:39 PM Result Value Ref Range POC-GLUCOSE 165 (H) 70 - 110 mg/dL Marketing Strategy Manager [id number] XR chest AP portable Narrative: PORTABLE CHEST. [...] output -Renally dose medications -No need for RETAIL SALES REPRESENTATIVE at present time. -Thanks for consultation for along with you ?? [facility] [address] [place] [place], [place], [address] Phone #[phone] Fax #[phone] High complex case * Bing Sebastian, - [...] POC-GLUCOSE 156 (H) 70 - 110 mg/dL Marketing Strategy Manager [id number] Glucose, Nova Meter Status: Abnormal Collection Time: 11/06/23 7:51 PM Result Value Ref Range POC-GLUCOSE 163 (H) 70 - 110 mg/dL Marketing Strategy Manager [id number] Glucose, Nova Meter Status: Abnormal Collection Time: 11/07/23 7:38 AM Result Value Ref Range POC-GLUCOSE 115 (H) 70 - 110 mg/dL Marketing Strategy Manager [id number] Magnesium Status: Normal Collection Time: 11/07/23 8:39 [...] POC-GLUCOSE 180 (H) 70 - 110 mg/dL Marketing Strategy Manager [id number] Radiology: XR chest AP portable Final Result [...] days Expected discharge disposition (home, SNF/Rehab, etc): [facility] Additional discharge needs or delays: TBD Signed: [...] resources and keeping follow ups,noncompliance??who presented to [facility] on 10/25 for evaluation of several days of worsening shortness ofbreath and scrotal edema. He was admitted to [facility] for CHF exacerbation as above ,He had echocardiogram done showing EF of 20-25% and was transferred to [facility] for EP evaluation of AICD. ? [...] POC-GLUCOSE 121 (H) 70 - 110 mg/dL Marketing Strategy Manager [id number] Glucose, Nova Meter Status: Abnormal Collection Time: 11/06/23 11:03 AM Result Value Ref Range POC-GLUCOSE 166 (H) 70 - 110 mg/dL Marketing Strategy Manager [id number] Glucose, Nova Meter Status: Abnormal Collection Time: 11/06/23 4:17 PM Result Value Ref Range POC-GLUCOSE 156 (H) 70 - 110 mg/dL Marketing Strategy Manager [id number] Glucose, Nova Meter Status: Abnormal Collection Time: 11/06/23 7:51 PM Result Value Ref Range POC-GLUCOSE 163 (H) 70 - 110 mg/dL Marketing Strategy Manager [id number] XR chest AP portable Narrative: PORTABLE CHEST. [...] output -Renally dose medications -No need for RETAIL SALES REPRESENTATIVE at present time. -Thanks for consultation for along with you ?? [facility] [address] [place] [place], [place], [address] Phone #[phone] Fax #[phone] High complex case * Bing Sebastian, DO [...] POC-GLUCOSE 185 (H) 70 - 110 mg/dL Marketing Strategy Manager [id number] Glucose, Nova Meter Status: None Collection Time: 11/05/23 7:28 PM Result Value Ref Range POC-GLUCOSE 95 70 - 110 mg/dL Marketing Strategy Manager [id number] CBC with automated diff Status: Abnormal Collection [...] POC-GLUCOSE 121 (H) 70 - 110 mg/dL Marketing Strategy Manager [id number] Glucose, Nova Meter Status: Abnormal Collection Time: 11/06/23 11:03 AM Result Value Ref Range POC-GLUCOSE 166 (H) 70 - 110 mg/dL Marketing Strategy Manager [id number] Radiology: XR chest AP portable Final Result [...] days Expected discharge disposition (home, SNF/Rehab, etc): [facility] Additional discharge needs or delays: TBD Signed: DO [facility] * Everardo Trinidad MD - 11/06/2023 11:21 AM EDT Receiver Bulk System: Chief Complaint: No chief complaint on file. [...] Insulin-dependent *Peripheral vascular disease History of left kncsq-bej-ylmb amputation (uses a prosthesis) *LECHUGA cirrhosis *COPD [...] 2:30 PM EDT Discharge Plan Progress Note [facility] unable to accommodate [facility] patient. [facility] will re-evaluate to see if he is good candidate for them. Will need transportation. CM to follow. Tamara Winters RN * Everardo Trinidad MD - 11/05/2023 1:04 PM EDT Receiver Bulk System: Chief Complaint: No chief complaint on file. [...] Insulin-dependent *Peripheral vascular disease History of left zyblr-kol-xtfm amputation (uses a prosthesis) *LECHUGA cirrhosis *COPD [...] POC-GLUCOSE 119 (H) 70 - 110 mg/dL Marketing Strategy Manager [id number] Glucose, Nova Meter Status: Abnormal Collection Time: 11/04/23 8:25 PM Result Value Ref Range POC-GLUCOSE 159 (H) 70 - 110 mg/dL Marketing Strategy Manager [id number] Basic Metabolic Panel Status: Abnormal Collection Time: [...] Range POC-GLUCOSE 98 70 - 110 mg/dL Marketing Strategy Manager [id number] Glucose, Nova Meter Status: Abnormal Collection Time: 11/05/23 11:10 AM Result Value Ref Range POC-GLUCOSE 139 (H) 70 - 110 mg/dL Marketing Strategy Manager [id number] Radiology: XR chest AP portable Final Result [...] days Expected discharge disposition (home, SNF/Rehab, etc): [facility] Additional discharge needs or delays: TBD Signed: Bing Sebastian DO [facility] Emergency Department Physicians Hospitalist * Monika Pennington MD - 11/05/2023 11:57 AM EDT Subjective History of Present Illness: Patient is very poor historian Robert Hurley Jr. is a 58 y.o. male with history of CKD 4 with base creatinine close to ~3, DM,HTN,CHF, left AKA ,difficulty accessing health care resources and keeping follow ups,noncompliance??who presented to [facility] on 10/25 for evaluation of several days of worsening shortness ofbreath and scrotal edema. He was admitted to [facility] for CHF exacerbation as above ,He had echocardiogram done showing EF of 20-25% and was transferred to [facility] for EP evaluation of AICD. ? [...] POC-GLUCOSE 185 (H) 70 - 110 mg/dL Marketing Strategy Manager [id number] Glucose, Nova Meter Status: None Collection Time: 11/05/23 7:28 PM Result Value Ref Range POC-GLUCOSE 95 70 - 110 mg/dL Marketing Strategy Manager [id number] CBC with automated diff Status: Abnormal Collection [...] POC-GLUCOSE 121 (H) 70 - 110 mg/dL Marketing Strategy Manager [id number] Glucose, Nova Meter Status: Abnormal Collection Time: 11/06/23 11:03 AM Result Value Ref Range POC-GLUCOSE 166 (H) 70 - 110 mg/dL Marketing Strategy Manager [id number] XR chest AP portable Narrative: PORTABLE CHEST. [...] output -Renally dose medications -No need for RETAIL SALES REPRESENTATIVE at present time. -Thanks for consultation for along with you ?? [facility] [address] [place] [place], [place], [address] Phone #[phone] Fax #[phone] High complex case * Monika Pennington MD - 11/04/2023 5:48 PM EDT Subjective History of Present Illness: Patient is very poor historian Robert Hurley Jr. is a 58 y.o. male with history of CKD 4 with base creatinine close to ~3, DM,HTN,CHF, left AKA ,difficulty accessing health care resources and keeping follow ups,noncompliance??who presented to [facility] on 10/25 for evaluation of several days of worsening shortness ofbreath and scrotal edema. He was admitted to [facility] for CHF exacerbation as above ,He had echocardiogram done showing EF of 20-25% and was transferred to [facility] for EP evaluation of AICD. ? [...] POC-GLUCOSE 127 (H) 70 - 110 mg/dL Marketing Strategy Manager [id number] Magnesium Status: Normal Collection Time: 11/04/23 4:55 AM Result Value Ref Range Magnesium 2.3 1.5 - 2.4 mg/dL Glucose, Nova Meter Status: Abnormal Collection Time: 11/04/23 8:40 AM Result Value Ref Range POC-GLUCOSE 130 (H) 70 - 110 mg/dL Marketing Strategy Manager [id number] Glucose, Nova Meter Status: Abnormal Collection Time: 11/04/23 10:47 AM Result Value Ref Range POC-GLUCOSE 200 (H) 70 - 110 mg/dL Marketing Strategy Manager [id number] Basic Metabolic Panel Status: Abnormal Collection Time: [...] output -Renally dose medications -No need for RETAIL SALES REPRESENTATIVE at present time. -Thanks for consultation for along with you ?? [facility] [address] [place] [place], [place], [address] Phone #[phone] Fax #[phone] High complex case * Yousef Polat, MD - 11/04/2023 4:49 PM EDT Receiver Bulk System: Chief Complaint: No chief complaint on file. [...] Insulin-dependent *Peripheral vascular disease History of left bjdvr-txo-xkyv amputation (uses a prosthesis) *LECHUGA cirrhosis *COPD [...] Discharge Plan Progress Note Bed accepted at [facility]. Will arrange transportation when insurance approval obtained. CM to follow. Tamara Winters RN * Bing Sebastian DO - 11/04/2023 2:10 PM EDT [facility] Emergency Department Physicians Progress Note Patient: Robert Hurley Jr. [...] the past 24 hours Per case management, [facility] provider has noted that he does [...] POC-GLUCOSE 186 (H) 70 - 110 mg/dL Marketing Strategy Manager [id number] Glucose, Nova Meter Status: Abnormal Collection Time: 11/03/23 8:34 PM Result Value Ref Range POC-GLUCOSE 127 (H) 70 - 110 mg/dL Marketing Strategy Manager [id number] Magnesium Status: Normal Collection Time: 11/04/23 4:55 AM Result Value Ref Range Magnesium 2.3 1.5 - 2.4 mg/dL Glucose, Nova Meter Status: Abnormal Collection Time: 11/04/23 8:40 AM Result Value Ref Range POC-GLUCOSE 130 (H) 70 - 110 mg/dL Marketing Strategy Manager [id number] Glucose, Nova Meter Status: Abnormal Collection Time: 11/04/23 10:47 AM Result Value Ref Range POC-GLUCOSE 200 (H) 70 - 110 mg/dL Marketing Strategy Manager [id number] Radiology: XR chest AP portable Preliminary Result Improving aeration. Images reviewed, interpreted, and dictated by Dr. Frandy Stauffer. Transcribed by Brad eHrnandez PA-C. XR chest AP portable Final Result [...] days Expected discharge disposition (home, SNF/Rehab, etc): [facility] Additional discharge needs or delays: TBD Signed: Bing Sebastian DO [facility] Emergency Department Physicians Hospitalist * HENRIETTA Garcia/Ann - 11/04/2023 [...] Acute on chronic diastolic CHF (congestiveheart failure) ([facility]) [I50.33]. Past 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: Diagnosis Date ??? CHF (congestive heart failure) ([facility]) ??? CKD (chronic kidney disease) ??? COPD (chronic obstructive pulmonary disease) ([facility]) ??? Hx of AKA (above knee amputation), left ([facility]) No past surgical history on file. General [...] Montez MD - 11/04/2023 8:43 AM EDT [facility] -progress note Subjective: He feels [...] medical history of CHF (congestive heart failure) ([facility]), CKD (chronic kidney disease), COPD (chronic obstructive pulmonary disease) ([facility]), and AKA (above knee amputation), left ([facility]). Surgical History: left heart catheterization Tobacco History [...] Dailey MD - 11/03/2023 8:21 PM EDT Receiver Bulk System: Chief Complaint: No chief complaint on file. [...] Insulin-dependent *Peripheral vascular disease History of left ydhsk-jzd-ipvf amputation (uses a prosthesis) *LECHUGA cirrhosis *COPD [...] resources and keeping follow ups,noncompliance??who presented to [facility] on 10/25 for evaluation of several days of worsening shortness ofbreath and scrotal edema. He was admitted to [facility] for CHF exacerbation as above ,He had echocardiogram done showing EF of 20-25% and was transferred to [facility] for EP evaluation of AICD. ? [...] POC-GLUCOSE 127 (H) 70 - 110 mg/dL Marketing Strategy Manager [id number] Magnesium Status: Normal Collection Time: 11/04/23 4:55 AM Result Value Ref Range Magnesium 2.3 1.5 - 2.4 mg/dL Glucose, Nova Meter Status: Abnormal Collection Time: 11/04/23 8:40 AM Result Value Ref Range POC-GLUCOSE 130 (H) 70 - 110 mg/dL Marketing Strategy Manager [id number] Glucose, Nova Meter Status: Abnormal Collection Time: 11/04/23 10:47 AM Result Value Ref Range POC-GLUCOSE 200 (H) 70 - 110 mg/dL Marketing Strategy Manager [id number] Basic Metabolic Panel Status: Abnormal Collection Time: [...] output -Renally dose medications -No need for RETAIL SALES REPRESENTATIVE at present time. -Thanks for consultation for along with you ?? [facility] [address] [place] [place], [place], [address] Phone #[phone] Fax #[phone] High complex case * Bing Sebastian, - [...] Range POC-GLUCOSE 110 70 - 110 mg/dL Marketing Strategy Manager [id number] Glucose, Nova Meter Status: Abnormal Collection Time: 11/03/23 11:23 AM Result Value Ref Range POC-GLUCOSE 153 (H) 70 - 110 mg/dL Marketing Strategy Manager [id number] Glucose, Nova Meter Status: Abnormal Collection Time: 11/03/23 4:53 PM Result Value Ref Range POC-GLUCOSE 186 (H) 70 - 110 mg/dL Marketing Strategy Manager [id number] Radiology: XR chest AP portable Final Result [...] improvement, medically ready today can d/c to [facility] whenever pre-cert and bed ready Expected (tentative) discharge in 2-3 days Expected discharge disposition (home, SNF/Rehab, etc): [facility] Additional discharge needs or delays: TBD Signed: DO [facility] * Tamara Winters RN - 11/03/2023 3:16 PM EDT Discharge Plan Progress Note Patient is agreeable to go to [facility] upon discharge. They will start precert process. [...] Acute on chronic diastolic CHF (congestiveheart failure) ([facility]) [I50.33]. Past 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: Diagnosis Date ??? [...] Montez MD - 11/03/2023 9:01 AM EDT [facility] - Consult Note Subjective: Patient [...] medical history of CHF (congestive heart failure) ([facility]), CKD (chronic kidney disease), COPD (chronic obstructive pulmonary disease) ([facility]), and AKA (above knee amputation), left ([facility]). Surgical History: left heart catheterization Tobacco History [...] on chronic diastolic CHF (congestive heart failure) ([facility]) Impression and Plan: IMPRESSION: * Acute combined [...] resources and keeping follow ups,noncompliance??who presented to [facility] on 10/25 for evaluation of several days of worsening shortness ofbreath and scrotal edema. He was admitted to [facility] for CHF exacerbation as above ,He had echocardiogram done showing EF of 20-25% and was transferred to [facility] for EP evaluation of AICD. ? [...] POC-GLUCOSE 137 (H) 70 - 110 mg/dL Marketing Strategy Manager [id number] Basic Metabolic Panel Status: Abnormal Collection Time: [...] POC-GLUCOSE 143 (H) 70 - 110 mg/dL Marketing Strategy Manager [id number] Glucose, Nova Meter Status: Abnormal Collection Time: 11/02/23 12:14 PM Result Value Ref Range POC-GLUCOSE 155 (H) 70 - 110 mg/dL Marketing Strategy Manager [id number] Glucose, Nova Meter Status: Abnormal Collection Time: 11/02/23 4:40 PM Result Value Ref Range POC-GLUCOSE 181 (H) 70 - 110 mg/dL Marketing Strategy Manager [id number] XR chest AP portable Narrative: PORTABLE CHEST; [...] output -Renally dose medications -No need for RETAIL SALES REPRESENTATIVE at present time,high risk of deterioration and needing RETAIL SALES REPRESENTATIVE -Thanks for consultation for along with you ?? [facility] [address] [place] [place], [place], [address] Phone #[phone] Fax #[phone] High complex case * Antoinette Jaeger OTR/Ann [...] Acute on chronic diastolic CHF (congestiveheart failure) ([facility]) [I50.33]. Past 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: Diagnosis Date ??? CHF (congestive heart failure) ([facility]) ??? CKD (chronic kidney disease) ??? COPD (chronic obstructive pulmonary disease) ([facility]) ??? Hx of AKA (above knee amputation), left ([facility]) No past surgical history on file. General [...] sent within 25 miles of patient's home. [facility] is patient's first choice. Will need transportation [...] Dailey MD - 11/02/2023 1:59 PM EDT Receiver Bulk System: Chief Complaint: No chief complaint on file. [...] Insulin-dependent *Peripheral vascular disease History of left atvjx-abn-wvmq amputation (uses a prosthesis) *LECHUGA cirrhosis *COPD [...] Sebastian DO - 11/02/2023 10:01 AM EDT [facility] Emergency Department Physicians Progress Note Patient: Robert Hurley Jr. [...] POC-GLUCOSE 147 (H) 70 - 110 mg/dL Marketing Strategy Manager [id number] Glucose, Nova Meter Status: Abnormal Collection Time: 11/01/23 3:59 PM Result Value Ref Range POC-GLUCOSE 155 (H) 70 - 110 mg/dL Marketing Strategy Manager [id number] Glucose, Nova Meter Status: Abnormal Collection Time: 11/01/23 7:28 PM Result Value Ref Range POC-GLUCOSE 137 (H) 70 - 110 mg/dL Marketing Strategy Manager [id number] Basic Metabolic Panel Status: Abnormal Collection Time: [...] POC-GLUCOSE 143 (H) 70 - 110 mg/dL Marketing Strategy Manager [id number] Radiology: ECHO COMPLETE (DOPPLER / COLOR) W [...] Montez MD - 11/02/2023 8:50 AM EDT [facility] - Consult Note Subjective: Patient [...] medical history of CHF (congestive heart failure) ([facility]), CKD (chronic kidney disease), COPD (chronic obstructive pulmonary disease) ([facility]), and AKA (above knee amputation), [facility] [facility]). Surgical History: left heart catheterization Tobacco History [...] 1965 Age: 58 year(s) Corporate ID Number: [id number] Gender Male Manager Water Wastewater: LILLIAN Phillip Height: 73 inches Referring Physician: KATHRYN CASTANEDA Weight: 206 pounds Interpreting GILBERT DAILEY MD BMI: 27.18 kg/m^2 Physician: Date of Service: 10/30/2023 Blood Pressure: 147/99 mmHg Room Number: 3158 Type of Study: TTE procedure: ECHO COMPLETE (DOPPLER / COLOR) W OR WO CONTRAST. Patient Status: Routine IP [facility] Adequate visualization History/Tech Notes: Indication: shortness [...] 0.69 m/s E/A ratio: 1.2 m/s Volume smgyofwca359.33 LV length: 10.08 ml cm Volume pasymgci12.45 ml LVOT diameter: 2.19 cm Normal sized [...] on chronic diastolic CHF (congestive heart failure) ([facility]) Impression and Plan: IMPRESSION: * Acute combined [...] Dailey MD - 11/01/2023 3:21 PM EDT Receiver Bulk System: Chief Complaint: No chief complaint on file. [...] Insulin-dependent *Peripheral vascular disease History of left huyox-yeh-svvs amputation (uses a prosthesis) *LECHUGA cirrhosis *COPD [...] RN - 11/01/2023 1:11 PM EDT 11/01/23 5407 Home Environment Type of Residence Private residence [...] (P) Home Mandated Reporting: (P) Not applicable PT/OT/FREIGHT CAR REPAIRER Recommendations PT Recommendations: 1-2 hours physical therapy per day OT Recommendations: FREIGHT CAR REPAIRER Recommendations: CM consulted for DCP and possible [...] rehab is necessary, his first choice is [facility]. Will wait to send referral. May need [...] resources and keeping follow ups,noncompliance??who presented to [facility] on 10/25 for evaluation of several days of worsening shortness ofbreath and scrotal edema. He was admitted to [facility] for CHF exacerbation as above ,He had echocardiogram done showing EF of 20-25% and was transferred to [facility] for EP evaluation of AICD. ? [...] POC-GLUCOSE 147 (H) 70 - 110 mg/dL Marketing Strategy Manager [id number] Glucose, Nova Meter Status: Abnormal Collection Time: 11/01/23 3:59 PM Result Value Ref Range POC-GLUCOSE 155 (H) 70 - 110 mg/dL Marketing Strategy Manager [id number] Glucose, Nova Meter Status: Abnormal Collection Time: 11/01/23 7:28 PM Result Value Ref Range POC-GLUCOSE 137 (H) 70 - 110 mg/dL Marketing Strategy Manager [id number] Basic Metabolic Panel Status: Abnormal Collection Time: [...] POC-GLUCOSE 143 (H) 70 - 110 mg/dL Marketing Strategy Manager [id number] XR chest AP portable Narrative: Name: ROBERT HURLEY JRLeonid : 1965 CHEST SINGLE VIEW [...] 1965 Age: 58 year(s) Corporate ID Number: [id number] Gender Male Manager Water Wastewater: LILLIAN Phillip Height: 73 inches Referring Physician: KATHRYN CASTANEDA Weight: 206 pounds Interpreting GILBERT DAILEY MD BMI: 27.18 kg/m^2 Physician: Date of Service: 10/30/2023 Blood Pressure: 147/99 mmHg Room Number: 3158 Type of Study: TTE procedure: ECHO COMPLETE (DOPPLER / COLOR) W OR WO CONTRAST. Patient Status: Routine IP [facility] History/Tech Notes: Indication: shortness [...] 0.69 m/s E/A ratio: 1.2 m/s Volume lrgrdofvr286.33 LV length: 10.08 ml cm Volume ycplasrf85.45 ml LVOT diameter: 2.19 cm Normal sized [...] output -Renally dose medications -No need for RETAIL SALES REPRESENTATIVE at present time,high risk of deterioration and needing RETAIL SALES REPRESENTATIVE -Thanks for consultation for along with you ?? [facility] [address] [place], [place], [address] Phone #[phone] Fax #[phone] High complex case * Nohelia La Nena, [...] POC-GLUCOSE 207 (H) 70 - 110 mg/dL Marketing Strategy Manager [id number] Glucose, Nova Meter Status: Abnormal Collection Time: 10/31/23 4:37 PM Result Value Ref Range POC-GLUCOSE 176 (H) 70 - 110 mg/dL Marketing Strategy Manager [id number] Glucose, Nova Meter Status: Abnormal Collection Time: 10/31/23 7:47 PM Result Value Ref Range POC-GLUCOSE 149 (H) 70 - 110 mg/dL Marketing Strategy Manager [id number] Magnesium Status: Normal Collection Time: 11/01/23 5:29 [...] POC-GLUCOSE 112 (H) 70 - 110 mg/dL Marketing Strategy Manager [id number] Radiology: Radiology Results (last 3 days) Procedure Component Value Units Date/Time XR chest AP portable [[id number]] Collected: 10/30/23 1454 Order Status: Completed Updated: [...] due to hyperkalemia - he came to [facility] for EP eval for AICD, d/w [...] skin wound and cellulitis, skin culture from [facility] on 10/25 showed klebsiella and enterobacter- sensistive [...] management. Signed: Nohelia Santos Physician Hospitalist Pager [phone] 11/01/2023, 10:23 AM * Kacy Montez MD - 11/01/2023 7:39 AM EDT [facility] - Consult Note Subjective: Feeling [...] medical history of CHF (congestive heart failure) ([facility]), CKD (chronic kidney disease), COPD (chronic obstructive pulmonary disease) ([facility]), and AKA (above knee amputation), left ([facility]). Surgical History: left heart catheterization Tobacco History [...] 1965 Age: 58 year(s) Corporate ID Number: [id number] Gender Male Manager Water Wastewater: LILLIAN Phillip Height: 73 inches Referring Physician: KATHRYN CASTANEDA Weight: 206 pounds Interpreting GILBERT DAILEY MD BMI: 27.18 kg/m^2 Physician: Date of Service: 10/30/2023 Blood Pressure: 147/99 mmHg Room Number: 3158 Type of Study: TTE procedure: ECHO COMPLETE (DOPPLER / COLOR) W OR WO CONTRAST. Patient Status: Routine IP [facility]quate [facility] History/Tech Notes: Indication: [...] 0.69 m/s E/A ratio: 1.2 m/s Volume xwbdzjqso830.33 LV length: 10.08 ml cm Volume imkxibsj46.45 ml LVOT diameter: 2.19 cm Normal sized [...] on chronic diastolic CHF (congestive heart failure) ([facility]) Impression and Plan: IMPRESSION: * Acute combined [...] Dailey MD - 10/31/2023 6:06 PM EDT Receiver Bulk System: Chief Complaint: No chief complaint on file. [...] Insulin-dependent *Peripheral vascular disease History of left lgvrc-isd-piui amputation (uses a prosthesis) *LECHUGA cirrhosis *COPD [...] resources and keeping follow ups,noncompliance??who presented to [facility] on 10/25 for evaluation of several days of worsening shortness ofbreath and scrotal edema. He was admitted to [facility] for CHF exacerbation as above ,He had echocardiogram done showing EF of 20-25% and was transferred to [facility] for EP evaluation of AICD. ? [...] Range POC-GLUCOSE 99 70 - 110 mg/dL Marketing Strategy Manager [id number] Glucose, Nova Meter Status: None Collection Time: 10/30/23 8:43 PM Result Value Ref Range POC-GLUCOSE 73 70 - 110 mg/dL Marketing Strategy Manager [id number] Magnesium Status: Normal Collection Time: 10/31/23 4:36 [...] POC-GLUCOSE 131 (H) 70 - 110 mg/dL Marketing Strategy Manager [id number] Glucose, Nova Meter Status: Abnormal Collection Time: 10/31/23 12:13 PM Result Value Ref Range POC-GLUCOSE 207 (H) 70 - 110 mg/dL Marketing Strategy Manager [id number] XR chest AP portable Narrative: Name: ROBERT [...] JR. Age: 58 year(s) Corporate ID Number: [id number] Gender Male Manager Water Wastewater: LILLIAN Phillip Height: 73 inches Referring Physician: KATHRYN CASTANEDA Weight: 206 pounds Interpreting GILBERT DAILEY MD BMI: 27.18 kg/m^2 Physician: Date of Service: 10/30/2023 Blood Pressure: 147/99 mmHg Room Number: 3158 Type of Study: TTE procedure: ECHO COMPLETE (DOPPLER / COLOR) W OR WO CONTRAST. Patient Status: Routine IP Study Location: [facility] Quality: Adequate visualization History/Tech Notes: Indication: shortness [...] 0.69 m/s E/A ratio: 1.2 m/s Volume iigxsogcw922.33 LV length: 10.08 ml cm Volume ongsxran90.45 ml LVOT diameter: 2.19 cm Normal sized [...] output -Renally dose medications -No need for RETAIL SALES REPRESENTATIVE at present time -Thanks for consultation for along with you ?? [facility] [address] [place], [place], [address] Phone #[phone] Fax #[phone] High complex case * Nohelia José Manuelsuzanne, [...] POC-GLUCOSE 117 (H) 70 - 110 mg/dL Marketing Strategy Manager [id number] Glucose, Nova Meter Status: None Collection Time: 10/30/23 4:33 PM Result Value Ref Range POC-GLUCOSE 99 70 - 110 mg/dL Marketing Strategy Manager [id number] Glucose, Nova Meter Status: None Collection Time: 10/30/23 8:43 PM Result Value Ref Range POC-GLUCOSE 73 70 - 110 mg/dL Marketing Strategy Manager [id number] Magnesium Status: Normal Collection Time: 10/31/23 4:36 [...] POC-GLUCOSE 131 (H) 70 - 110 mg/dL Marketing Strategy Manager [id number] Radiology: Radiology Results (last 3 days) Procedure Component Value Units Date/Time XR chest AP portable [[id number]] Collected: 10/30/23 1454 Order Status: Completed Updated: [...] due to hyperkalemia - he came to [facility] for EP eval for AICD, d/w [...] skin wound and cellulitis, skin culture from [facility] on 10/25 showed klebsiella and enterobacter- sensistive [...] management. Signed: Nohelia Santos Physician Hospitalist Pager [phone] 10/31/2023, 10:12 AM * Ruth Ann Manjarrez, [...] on chronic diastolic CHF (congestive heart failure) ([facility]) [I50.33]. Past 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: Diagnosis Date ??? [...] of Co-treated by: Shakira RANGEL Assisted by: loss control technician, PT student Dennis Precautions Weight-Bearing Status: [...] note serves as the patient's discharge summary. (PT/CARPENTER FORM student assisted with the treatment of this patient under the direct supervision of the Physical Therapist. PT is dropping 5 zero charges for after school counselor supervision of PT/CARPENTER FORM student this date) Electronically signed by Ruth Ann Manjarrez, PT - 10/31/23 - 10:04 AM EDT * Shakira Duran OTR/Ann - 10/31/2023 9:24 AM EDT Images from the original note were not included. Inpatient Occupational Therapy Initial Evaluation Patient Name: Robert Hurley [...] Diagnosis Date ??? CHF (congestive heart failure) ([facility]) ??? CKD (chronic kidney disease) ??? COPD (chronic obstructive pulmonary disease) ([facility]) ??? Hx of AKA (above knee amputation), left ([facility]) No past surgical history on file. General Visit Type: Initial Evaluation Approved By: Nurse Otero Patient Disposition Upon Entry: Supine in bed, Call Light/Pull Cord in reach, All needs met and within reach, Nursing aware/notified, Side rails up Patient Verified By: Name and Date of Co-treated by: PT student Assisted by: loss control technician ?? Precautions Weight-Bearing Status: No Restrictions [...] body dressing:Maximal Assistance Toileting:Total Assistance Outcome Measures [facility] Daily Living Functional Assessment How much help [...] (Minimal/Contact guard/Supervision/Setup) 4=None (Modified independent/Independent) The patient's [facility] raw score is 15. The patient currently [...] Montez MD - 10/31/2023 4:18 AM EDT [facility] - Consult Note Subjective: Shortness [...] medical history of CHF (congestive heart failure) ([facility]), CKD (chronic kidney disease), COPD (chronic obstructive pulmonary disease) ([facility]), and AKA (above knee amputation), left ([facility]). Surgical History: left heart catheterization Tobacco History [...] 1965 Age: 58 year(s) Corporate ID Number: [id number] Gender Male Manager Water Wastewater: LILLIAN Phillip Height: 73 inches Referring Physician: [...] 0.69 m/s E/A ratio: 1.2 m/s Volume wxasobroc312.33 LV length: 10.08 ml cm Volume dsdyhvsu67.45 ml LVOT diameter: 2.19 cm Normal sized [...] on chronic diastolic CHF (congestive heart failure) ([facility]) Impression and Plan: IMPRESSION: * Acute combined [...] Dailey MD - 10/30/2023 8:27 PM EDT Receiver Bulk System: Chief Complaint: No chief complaint on file. [...] Insulin-dependent *Peripheral vascular disease History of left benqr-qzg-rkto amputation (uses a prosthesis) *LECHUGA cirrhosis *COPD [...] Deutsch, DO - 10/30/2023 10:50 AM EDT [facility]PITAL[facility] PROGRESS NOTE Patient: Robert Hurley Jr. [...] POC-GLUCOSE 136 (H) 70 - 110 mg/dL Marketing Strategy Manager [id number] PROBNP Status: Abnormal Collection Time: 10/29/23 5:50 [...] 84 BPM ATRIAL RATE (MCT) 84 BPM ME Interval 150 ms QRS-INTERVAL (MSEC) 120 ms QT Interval 410 ms QTC Interval 484 ms P [place] 55 degrees R AXIS (MCT) -9 degrees T Wave [place] 124 degrees [place] Diagnosis Suspect unspecified pacemaker failure Normal sinus rhythm Cannot rule out Anterior infarct , age undetermined Abnormal ECG No previous ECGs available Glucose, Nova Meter Status: Abnormal Collection Time: 10/29/23 7:23 PM Result Value Ref Range POC-GLUCOSE 158 (H) 70 - 110 mg/dL Marketing Strategy Manager [id number] Glucose, Nova Meter Status: Abnormal Collection Time: 10/29/23 8:37 PM Result Value Ref Range POC-GLUCOSE 165 (H) 70 - 110 mg/dL Marketing Strategy Manager [id number] Comprehensive metabolic panel Status: Abnormal Collection Time: [...] Range POC-GLUCOSE 87 70 - 110 mg/dL Marketing Strategy Manager [id number] Radiology: Radiology Results (last 3 days) Procedure Component Value Units Date/Time XR chest AP portable [[id number]] Resulted: 10/30/23956 Order Status: Sent Updated: 10/30/23957 [...] OSH this am - he came to [facility] for EP eval for AICD, d/w [...] skin wound and cellulitis, skin culture from [facility] on 10/25 showed klebsiella and enterobacter- sensistive [...] management. Signed: Nohelia Santos Physician Hospitalist Pager [phone] 10/30/2023, 10:51 AM documented in this encounter [...] who lives by himself who presented to [facility] on 10/25 for evaluation of 4 days of worsening shortness of breath and scrotal edema. He is a poor historian. 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 He was admitted to [facility] for chf exacerbation, he was given iv lasix and then this was decreased as thought euvolemic. He had echocardiogram done showing EF of 20-25% and was transferred to [facility] for EP evaluation of AICD. 10/28 [...] OSH this am - he came to [facility] for EP eval for AICD, d/w dr dailey, no plans for AICD at this time. Scrotal edema - from above - no open abscess or lesions - does not need urology consult at this time LEFT AKA - s/p LEFT AKA 3 years ago - has prosthesis, consult pt/ot Diabetes mellitus - start ssi and lantus LECHUGA cirrhosis - noted CKD 4 - monitor renal function with diuresis, creatinine 3.3 this am at [facility] Cellulitis right calf - right calf with chronic skin wound and cellulitis, skin culture from [facility] on 10/25 showed klebsiella and enterobacter- sensistive [...] if he is unable. Disposition: admit to [facility] for chf exac, patient to require greater than 2 midnight hospital stay. Signed: Nohelia Santos Hospitalist Physician Pager [phone] 10/29/2023, 2:56 PM documented in this encounter [...] EDTAssociated Order(s): FS_MODEL_IP IP CONSULT TO CARDIOLOGY [facility] - Consult Note Basic Information: [...] of medical noncompliance who presented to [facility] ([place], [place]) via outside facility for evaluation for ICD [...] medical history of CHF (congestive heart failure) ([facility]), CKD (chronic kidney disease), COPD (chronic obstructive pulmonary disease) ([facility]), and AKA (above knee amputation), left ([facility]). Surgical History: left heart catheterization Tobacco History [...] resources and keeping follow ups,noncompliance??who presented to [facility] on 10/25 for evaluation of several days of worsening shortness ofbreath and scrotal edema. He was admitted to [facility] for CHF exacerbation as above ,He had echocardiogram done showing EF of 20-25% and was transferred to [facility] for EP evaluation of AICD. Yesterday Labs at OSH showed wbc 3.5, hgb 10.5, plt 201, sodium 138, potassium 5.0, creatinine 3.3,mag 2.0. Nephrology was consulted for Renal failure and Volume management Past 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: He has a past medical history of CHF (congestive heart failure) ([facility]), CKD (chronic kidney disease), COPD (chronic obstructive pulmonary disease) ([facility]), and AKA (above knee amputation), left ([facility]). Past Surgical History: He has no past [...] POC-GLUCOSE 136 (H) 70 - 110 mg/dL Marketing Strategy Manager [id number] PROBNP Status: Abnormal Collection Time: 10/29/23 5:50 [...] 84 BPM ATRIAL RATE (MCT) 84 BPM ME Interval 150 ms QRS-INTERVAL (MSEC) 120 ms QT Interval 410 ms QTC Interval 484 ms P [place] 55 degrees R AXIS (MCT) -9 degrees T Wave [place] 124 degrees [place] Diagnosis Suspect unspecified pacemaker failure Normal sinus rhythm Cannot rule out Anterior infarct , age undetermined Abnormal ECG No previous ECGs available Glucose, Nova Meter Status: Abnormal Collection Time: 10/29/23 7:23 PM Result Value Ref Range POC-GLUCOSE 158 (H) 70 - 110 mg/dL Marketing Strategy Manager [id number] Glucose, Nova Meter Status: Abnormal Collection Time: 10/29/23 8:37 PM Result Value Ref Range POC-GLUCOSE 165 (H) 70 - 110 mg/dL Marketing Strategy Manager [id number] Comprehensive metabolic panel Status: Abnormal Collection Time: [...] Range POC-GLUCOSE 87 70 - 110 mg/dL Marketing Strategy Manager [id number] Assessment & Plan Principal Problem: Acute on [...] output -Renally dose medications -No need for RETAIL SALES REPRESENTATIVE at present time -Thanks for consultation for along with you [facility] [address] [place], [place], [address] Phone #[phone] Fax #[phone] High complex case Electronically signed by Monika Pennington MD 10/30/2023 at 8:12 AM * Gilbert Dailey MD - 10/29/2023 4:47 PM EDTAssociated Order(s): FS_MODEL_IP IP CONSULT TO ELECTROPHYSIOLOGY EP Consult Note Patient Name: Robert Hurley Jr. Admission Date: 10/29/2023 Primary Care Provider: No primary care provider on file. Primary Receiver Bulk System: Previously seen per [facility] at cardiology Primary Complaint Operator: NONE Chief Complaint/Reason for Consult: Acute on chronic mixed CHF. Patient for possible AICD placement. History of Present Illness: Robert Hurley Jr. is a 58 y.o. male with PMH of ASCVD, history of non-STEMI, history of PCI, VHDwith aortic regurgitation and mitral regurgitation, hypertension, hyperlipidemia, diabetes mellitustype 2, peripheral vascular disease with history of left akgcs-jhh-tzya amputation (uses prosthesis), LECHUGA cirrhosis, CKD stage III-IV, and medical noncompliance. Patient admitted on: 10/29/2023 2:26 PM in transfer from [facility] for further evaluation and management of acute on chronic systolic congestive heart failure with reported LVEF of 20 to 25% per echo at OSH. Electrophysiology consultation been requested for further evaluation and consideration for possible AICD placement. has requested transfer to [facility] from [facility]. Time of this exam patient is awake, alert, and in no acute distress. He is currently hemodynamically stable without need for pressors. No current complaints of chest pain, nausea, vomiting, diaphoresis, or perceivable palpitations. quality assurance monitor chassis is currently showing sinus rhythm with a [...] on chronic diastolic CHF (congestive heart failure) ([facility]) No diagnosis found. Past 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: Past [...] of motion, Normal strength. Integumentary: Warm, Dry, [place]. Neurologic: Alert, Oriented. Psychiatric: Cooperative, Appropriate mood [...] Insulin-dependent *Peripheral vascular disease History of left bjpeu-uuk-jgzf amputation (uses a prosthesis) *LECHUGA cirrhosis *COPD [...] Glucose, Nova Meter (11/08/2023 12:11 PM EDT) [facility] POC-GLUCOSE 142(H) 70 - 110 mg/dL 11/08/2023 12:12 PM EDT [facility] Comment: In the event of poor peripheral blood flow, venous or arterial blood should be used due to the potential of erroneous results. Notified Nurse RBV Marketing Strategy Manager [id number] 11/08/2023 12:12 PM EDT [facility] Blood WHOLE BLOOD / Unknown 11/08/2023 12:11 PM EDT 11/08/2023 12:12 PM EDT Narrative [facility] - 11/08/2023 12:12 PM EDT Marketing Strategy Manager ID is - [id number] us Ismaeel Romulo DO POINT OF CARE TEST ORDERABLES Final Result [facility] [address] [phone] * XR chest AP portable (11/08/2023 8:15 [...] Nova Meter (11/08/2023 7:31 AM EDT) Pathologist [facility] POC-GLUCOSE 98 70 - 110 mg/dL 11/08/2023 7:33 AM EDT [facility] Comment: In the event of poor peripheral blood flow, venous or arterial blood should be used due to the potential of erroneous results. Notified Nurse RBV Marketing Strategy Manager [phone] 11/08/2023 7:33 AM EDT [facility] Blood WHOLE BLOOD / Unknown 11/08/2023 7:31 AM EDT 11/08/2023 7:32 AM EDT Narrative [facility] - 11/08/2023 7:33 AM EDT Marketing Strategy Manager ID is - [id number] us Ismaeel Romulo DO POINT OF CARE TEST ORDERABLES Final Result [facility] [address] [phone] * (ABNORMAL) Basic Metabolic Panel (11/08/2023 5:47 AM EDT) [facility] Sodium 139 136 - 146 meq/L 11/08/2023 7:01 AM EDT [facility] Potassium 4.9 3.5 - 5.1 meq/L 11/08/2023 7:01 AM EDT [facility] Chloride 104 102 - 112 meq/L 11/08/2023 7:01 AM EDT [facility] CO2 31 21 - 32 meq/L 11/08/2023 7:01 AM EDT [facility] Anion Gap 9 9 - 20 11/08/2023 7:01 AM EDT [facility] BUN 66(H) 7 - 22 mg/dL 11/08/2023 7:01 AM EDT [facility] Creatinine 3.16(H) 0.70 - 1.30 mg/dL 11/08/2023 7:01 AM EDT [facility] BUN/Creatinine 21(H) 8 - 20 11/08/2023 7:01 AM EDT [facility] Glucose 108(H) 74 - 106 mg/dL 11/08/2023 7:01 AM EDT [facility] Calcium 9.1 8.4 - 10.1 mg/dL 11/08/2023 7:01 AM EDT [facility] Osmolality Calc 297.1 7:01 AM EDT [facility] eGFR (mL/min/1.73m2) 22(L) >=60 mL/min/1.7 3m2 11/08/2023 7:01 AM EDT [facility] Comment:eGFR of <60 suggests chronic kidney disease if found over a 3 month period of time. eGFR <15 indicates renal failure. Blood Venipuncture / Unknown 11/08/2023 5:47 AM EDT 11/08/2023 6:12 AM EDT us Ismaeel Romulo DO LAB BLOOD ORDERABLES Final Re sult [facility] [address] [place] [address] * (ABNORMAL) CBC with automated diff (11/08/2023 5:47 AM EDT) WBC 4.4 4.2 - 9.1 K/??L 11/08/2023 6:25 AM EDT [facility] RBC 4.09(L) 4.63 - 6.08 M/??L 11/08/2023 6:25 AM EDT [facility] Hemoglobin 10.0(L) 13.7 - 17.5 GM/DL 11/08/2023 6:25 AM EDT [facility] Hematocrit 33.2(L) 40.1 - 51.0 % 11/08/2023 6:25 AM EDT [facility] MCV 81 79 - 92 fL 11/08/2023 6:25 AM EDT [facility] MCH 24.4(L) 25.7 - 32.2 pg 11/08/2023 6:25 AM EDT [facility] MCHC 30.1(L) 32.3 - 36.5 GM/DL 11/08/2023 6:25 AM EDT [facility] RDW 16.7(H) 11.6 - 14.4 % 11/08/2023 6:25 AM EDT [facility] Platelets 198 140 - 375 K/CU MM 11/08/2023 6:25 AM EDT [facility] MPV 11.2 9.4 - 12.4 fL 11/08/2023 6:25 AM EDT [facility] % Neutros 55 34 - 68 % 11/08/2023 6:25 AM EDT [facility] % Lymphs 31 22 - 53 % 11/08/2023 6:25 AM EDT [facility] % Monos 10 5 - 12 % 11/08/2023 6:25 AM EDT [facility] % Eos 3 1 - 7 % 11/08/2023 6:25 AM EDT [facility] % Baso 1 0 - 1 % 11/08/2023 6:25 AM EDT [facility] NRBC Absolute <0.01 0 - 0.012 K/ul 11/08/2023 6:25 AM EDT [facility] # Neutros 2.41 1.78 - 5.38 K/??L 11/08/2023 6:25 AM EDT [facility] # Lymphs 1.34 1.32 - 3.57 K/??L 11/08/2023 6:25 AM EDT [facility] # Monos 0.45 0.30 - 0.82 K/??L 11/08/2023 6:25 AM EDT [facility] # Eos 0.14 0.04 - 0.54 K/??L 11/08/2023 6:25 AM EDT [facility] # Baso 0.03 0.01 - 0.08 K/??L 11/08/2023 6:25 AM EDT [facility] Immature Granulocytes-Re lative 0.20 0.01 - 0.43 % 11/08/2023 6:25 AM EDT [facility] # IG <0.03 0.00 - 0.03 K/uL 11/08/2023 6:25 AM EDT [facility] Blood Venipuncture / Unknown 11/08/2023 5:47 AM EDT 11/08/2023 6:13 AM EDT Narrative [facility] - 11/08/2023 6:25 AM EDT When [...] ORDERABLES Final Re sult Performing Organization Address [facility]/ZIP Co de Phone Number [facility] [address] [phone] * Magnesium (11/08/2023 5:47 AM EDT) Pathologist [facility] Magnesium 2.0 1.5 - 2.4 mg/dL 11/08/2023 7:01 AM EDT [facility] Blood Venipuncture / Unknown 11/08/2023 5:47 AM EDT 11/08/2023 6:12 AM EDT us Ismaeel Romulo DO LAB BLOOD ORDERABLES Final Re sult Performing Organization Address [facility]/State/ZIP Co de Phone Number [facility] [address] [phone] * (ABNORMAL) Glucose, Nova Meter (11/07/2023 9:47 PM EDT) POC-GLUCOSE 191(H) 70 - 110 mg/dL 11/07/2023 9:48 PM EDT [facility] Comment:In the event of poor peripheral blood flow, venous or arterial blood should be used due to the potential of erroneous results. Marketing Strategy Manager [phone] 11/07/2023 9:48 PM EDT [facility] Blood WHOLE BLOOD / Unknown 11/07/2023 9:47 PM EDT 11/07/2023 9:48 PM EDT Narrative [facility] - 11/07/2023 9:48 PM EDT Marketing Strategy Manager ID is - [phone] us Ismaeel Romulo DO POINT OF CARE TEST ORDERABLES Final Result Performing Organization Address [facility] Co de Phone Number [facility] [address] [phone] * (ABNORMAL) Glucose, Nova Meter (11/07/2023 5:39 PM EDT) POC-GLUCOSE 165(H) 70 - 110 mg/dL 11/07/2023 5:41 PM EDT [facility] Comment: In the event of poor peripheral blood flow, venous or arterial blood should be used due to the potential of erroneous results. Notified Nurse RBV Marketing Strategy Manager [id number] 11/07/2023 5:41 PM EDT [facility] Blood WHOLE BLOOD / Unknown 11/07/2023 5:39 PM EDT 11/07/2023 5:41 PM EDT Narrative [facility] - 11/07/2023 5:41 PM EDT Marketing Strategy Manager ID is - [id number] us IsmnSandLinksl Romulo DO POINT OF CARE TEST ORDERABLES Final Result Performing Organization Address [facility] Co de Phone Number [facility] [address] [place] [address], [facility] [phone] * (ABNORMAL) Glucose, Nova Meter (11/07/2023 11:15 AM EDT) POC-GLUCOSE 180(H) 70 - 110 mg/dL 11/07/2023 11:20 AM EDT [facility] Comment: In the event of poor peripheral blood flow, venous or arterial blood should be used due to the potential of erroneous results. Notified Nurse RBV Marketing Strategy Manager [phone] 11/07/2023 11:20 AM EDT [facility] Blood WHOLE BLOOD / Unknown 11/07/2023 11:15 AM EDT 11/07/2023 11:20 AM EDT Narrative [facility] - 11/07/2023 11:20 AM EDT Marketing Strategy Manager ID is - [id number] Ismaeel Romulo DO POINT OF CARE TEST ORDERABLES Final Result [facility] [address] [phone] * (ABNORMAL) Basic Metabolic Panel (11/07/2023 8:39 AM EDT) Sodium 137 136 - 146 meq/L 11/07/2023 9:28 AM EDT [facility] Potassium 4.6 3.5 - 5.1 meq/L 11/07/2023 9:28 AM EDT [facility] Chloride 105 102 - 112 meq/L 11/07/2023 9:28 AM EDT [facility] CO2 29 21 - 32 meq/L 11/07/2023 9:28 AM EDT [facility] Anion Gap 8(L) 9 - 20 11/07/2023 9:28 AM EDT [facility] BUN 61(H) 7 - 22 mg/dL 11/07/2023 9:28 AM EDT [facility] Creatinine 3.00(H) 0.70 - 1.30 mg/dL 11/07/2023 9:28 AM EDT [facility] BUN/Creatinine 20 8 - 20 11/07/2023 9:28 AM EDT [facility] Glucose 118(H) 74 - 106 mg/dL 11/07/2023 9:28 AM EDT [facility] Calcium 8.6 8.4 - 10.1 mg/dL 11/07/2023 9:28 AM EDT [facility] Osmolality Calc 292.2 9:28 AM EDT [facility] eGFR (mL/min/1.73m2) 24(L) >=60 mL/min/1.7 3m2 11/07/2023 9:28 AM EDT [facility] Comment:eGFR of <60 suggests chronic kidney disease if found over a 3 month period of time. eGFR <15 indicates renal failure. Blood Venipuncture / Unknown 11/07/2023 8:39 AM EDT 11/07/2023 8:49 AM EDT us Ismaeel Romulo DO LAB BLOOD ORDERABLES Final Re sult [facility] [address] [phone] * (ABNORMAL) CBC with automated diff (11/07/2023 8:39 AM EDT) WBC 4.3 4.2 - 9.1 K/??L 11/07/2023 8:53 AM EDT [facility] RBC 4.31(L) 4.63 - 6.08 M/??L 11/07/2023 8:53 AM EDT [facility] Hemoglobin 10.5(L) 13.7 - 17.5 GM/DL 11/07/2023 8:53 AM EDT [facility] Hematocrit 34.9(L) 40.1 - 51.0 % 11/07/2023 8:53 AM EDT [facility] MCV 81 79 - 92 fL 11/07/2023 8:53 AM EDT [facility] MCH 24.4(L) 25.7 - 32.2 pg 11/07/2023 8:53 AM EDT [facility] MCHC 30.1(L) 32.3 - 36.5 GM/DL 11/07/2023 8:53 AM EDT [facility] RDW 16.7(H) 11.6 - 14.4 % 11/07/2023 8:53 AM EDT [facility] Platelets 191 140 - 375 K/CU MM 11/07/2023 8:53 AM EDT [facility] MPV 10.6 9.4 - 12.4 fL 11/07/2023 8:53 AM EDT [facility] % Neutros 58 34 - 68 % 11/07/2023 8:53 AM EDT [facility] % Lymphs 30 22 - 53 % 11/07/2023 8:53 AM EDT [facility] % Monos 10 5 - 12 % 11/07/2023 8:53 AM EDT [facility] % Eos 2 1 - 7 % 11/07/2023 8:53 AM EDT [facility] % Baso 1 0 - 1 % 11/07/2023 8:53 AM EDT [facility] NRBC Absolute <0.01 0 - 0.012 K/ul 11/07/2023 8:53 AM EDT [facility] # Neutros 2.48 1.78 - 5.38 K/??L 11/07/2023 8:53 AM EDT [facility] # Lymphs 1.27(L) 1.32 - 3.57 K/??L 11/07/2023 8:53 AM EDT [facility] # Monos 0.43 0.30 - 0.82 K/??L 11/07/2023 8:53 AM EDT [facility] # Eos 0.08 0.04 - 0.54 K/??L 11/07/2023 8:53 AM EDT [facility] # Baso <0.03 0.01 - 0.08 K/??L 11/07/2023 8:53 AM EDT [facility] Immature Granulocytes-Re lative 0.50(H) 0.01 - 0.43 % 11/07/2023 8:53 AM EDT [facility] # IG <0.03 0.00 - 0.03 K/uL 11/07/2023 8:53 AM EDT [facility] Blood Venipuncture / Unknown 11/07/2023 8:39 AM EDT 11/07/2023 8:49 AM EDT [facility] - 11/07/2023 8:53 AM EDT When [...] ORDERABLES Final Re sult Performing Organization Address City/[facility]/ZIP Co de Phone Number [facility] [address] [phone] * Magnesium (11/07/2023 8:39 AM EDT) [facility] Magnesium 2.0 1.5 - 2.4 mg/dL 11/07/2023 9:28 AM EDT [facility] Blood Venipuncture / Unknown 11/07/2023 8:39 AM EDT 11/07/2023 8:49 AM EDT us Ismaeel Romulo DO LAB BLOOD ORDERABLES Final Re sult Performing Organization Address [facility] Co de Phone Number [facility] [address] [phone] * (ABNORMAL) Glucose, Nova Meter (11/07/2023 7:38 AM EDT) [facility] POC-GLUCOSE 115(H) 70 - 110 mg/dL 11/07/2023 7:40 AM EDT [facility] Comment: In the event of poor peripheral blood flow, venous or arterial blood should be used due to the potential of erroneous results. Notified Nurse RBV Marketing Strategy Manager [phone] 11/07/2023 7:40 AM EDT [facility] Blood WHOLE BLOOD / Unknown 11/07/2023 7:38 AM EDT 11/07/2023 7:40 AM EDT Narrative [facility] - 11/07/2023 7:40 AM EDT Marketing Strategy Manager ID is - [id number] us Ismaeel Romulo DO POINT OF CARE TEST ORDERABLES Final Result [facility] [address] [phone] * XR chest AP portable (11/07/2023 7:16 [...] - 110 mg/dL 11/06/2023 7:53 PM EDT [facility] Comment: In the event of poor peripheral blood flow, venous or arterial blood should be used due to the potential of erroneous results. Notified Nurse RBV Marketing Strategy Manager [id number] 11/06/2023 7:53 PM EDT [facility] Blood WHOLE BLOOD / Unknown 11/06/2023 7:51 PM EDT 11/06/2023 7:53 PM EDT Narrative [facility] - 11/06/2023 7:53 PM EDT Marketing Strategy Manager ID is - [id number] us Ismaeel Romulo DO POINT OF CARE TEST ORDERABLES Final Result Performing Organization Address [facility] Co de Phone Number [facility] [address] [phone] * (ABNORMAL) Glucose, Nova Meter (11/06/2023 4:17 PM EDT) POC-GLUCOSE 156(H) 70 - 110 mg/dL 11/06/2023 4:19 PM EDT [facility] Comment: In the event of poor peripheral blood flow, venous or arterial blood should be used due to the potential of erroneous results. Notified Nurse RBV Marketing Strategy Manager [id number] 11/06/2023 4:19 PM EDT [facility] Blood WHOLE BLOOD / Unknown 11/06/2023 4:17 PM EDT 11/06/2023 4:19 PM EDT Narrative [facility] - 11/06/2023 4:19 PM EDT Marketing Strategy Manager ID is - [id number] us Ismaeel Romulo DO POINT OF CARE TEST ORDERABLES Final Result Performing Organization Address [facility] Co de Phone Number [facility] [address] [phone] * (ABNORMAL) Glucose, Nova Meter (11/06/2023 11:03 AM EDT) POC-GLUCOSE 166(H) 70 - 110 mg/dL 11/06/2023 11:05 AM EDT [facility] Comment: In the event of poor peripheral blood flow, venous or arterial blood should be used due to the potential of erroneous results. Notified Nurse RBV Marketing Strategy Manager [id number] 11/06/2023 11:05 AM EDT [facility] Blood WHOLE BLOOD / Unknown 11/06/2023 11:03 AM EDT 11/06/2023 11:05 AM EDT Narrative [facility] - 11/06/2023 11:05 AM EDT Marketing Strategy Manager ID is - [phone] us Ismaeel Romulo DO POINT OF CARE TEST ORDERABLES Final Result [facility] [address] [phone] * XR chest AP portable (11/06/2023 8:05 [...] Glucose, Nova Meter (11/06/2023 7:13 AM EDT) [facility] POC-GLUCOSE 121(H) 70 - 110 mg/dL 11/06/2023 7:14 AM EDT [facility] Comment: In the event of poor peripheral blood flow, venous or arterial blood should be used due to the potential of erroneous results. Notified Nurse RBV Marketing Strategy Manager [phone] 11/06/2023 7:14 AM EDT [facility] Blood WHOLE BLOOD / Unknown 11/06/2023 7:13 AM EDT 11/06/2023 7:14 AM EDT Narrative [facility] - 11/06/2023 7:14 AM EDT Marketing Strategy Manager ID is - [phone] us Ismaeel Romulo DO POINT OF CARE TEST ORDERABLES Final Result Performing Organization Address City/[facility]/ZIP Co de Phone Number [facility] [address] [phone] * Magnesium (11/06/2023 4:58 AM EDT) [facility] Magnesium 2.1 1.5 - 2.4 mg/dL 11/06/2023 6:09 AM EDT [facility] Blood Venipuncture / Unknown 11/06/2023 4:58 AM EDT 11/06/2023 5:38 AM EDT us Ismaeel Romulo DO LAB BLOOD ORDERABLES Final Re sult [facility] [address] [phone] * (ABNORMAL) Basic Metabolic Panel (11/06/2023 4:58 AM EDT) [facility] Sodium 136 136 - 146 meq/L 11/06/2023 6:09 AM EDT [facility] Potassium 4.8 3.5 - 5.1 meq/L 11/06/2023 6:09 AM EDT [facility] Chloride 102 102 - 112 meq/L 11/06/2023 6:09 AM EDT [facility] CO2 31 21 - 32 meq/L 11/06/2023 6:09 AM EDT [facility] Anion Gap 8(L) 9 - 20 11/06/2023 6:09 AM EDT [facility] BUN 61(H) 7 - 22 mg/dL 11/06/2023 6:09 AM EDT [facility] Creatinine 3.43(H) 0.70 - 1.30 mg/dL 11/06/2023 6:09 AM EDT [facility] BUN/Creatinine 18 8 - 20 11/06/2023 6:09 AM EDT [facility] Glucose 135(H) 74 - 106 mg/dL 11/06/2023 6:09 AM EDT [facility] Calcium 8.9 8.4 - 10.1 mg/dL 11/06/2023 6:09 AM EDT [facility] Osmolality Calc 291.2 6:09 AM EDT [facility] eGFR (mL/min/1.73m2) 20(L) >=60 mL/min/1.7 3m2 11/06/2023 6:09 AM EDT [facility] Comment:eGFR of <60 suggests chronic kidney disease if found over a 3 month period of time. eGFR <15 indicates renal failure. Blood Venipuncture / Unknown 11/06/2023 4:58 AM EDT 11/06/2023 5:38 AM EDT us Ismaeel Romulo DO LAB BLOOD ORDERABLES Final Re sult [facility] [address] [phone] * (ABNORMAL) Manual Differential (11/06/2023 4:57 AM EDT) Total Counted 100 11/06/2023 8:52 AM EDT [facility] % Neutros (manual) 62 50 - 65 % 11/06/2023 8:52 AM EDT [facility] % Lymphs (manual) 29 24 - 44 % 11/06/2023 8:52 AM EDT [facility] % Monos (manual) 6(H) 4 - 5 % 11/06/19 8:52 AM EDT [facility] % Eos (manual) 3 0 - 3 % 11/06/2023 8:52 AM EDT [facility] RBC Morphology abnormal(A) Normal 8:52 AM EDT [facility] Platelet Estimate Adequate Adequate 11/06/2023 8:52 AM EDT [facility] Anisocytosis 1+ 11/06/2023 8:52 AM EDT [facility] Ovalocytes 1+ 11/06/2023 8:52 AM EDT [facility] ANC# 2.23 K/??L 11/06/2023 8:52 AM EDT [facility] Blood Venipuncture / Unknown 11/06/2023 4:57 AM EDT 11/06/2023 5:43 AM EDT us Ismaeel Romulo DO LAB BLOOD ORDERABLES Final Re sult [facility] [address] [phone] * (ABNORMAL) CBC with automated diff (11/06/2023 4:57 AM EDT) WBC 3.6(L) 4.2 - 9.1 K/??L 11/06/2023 6:07 AM EDT [facility] RBC 4.29(L) 4.63 - 6.08 M/??L 11/06/2023 6:07 AM EDT [facility] Hemoglobin 10.5(L) 13.7 - 17.5 GM/DL 11/06/2023 6:07 AM EDT [facility] Hematocrit 35.2(L) 40.1 - 51.0 % 11/06/2023 6:07 AM EDT [facility] MCV 82 79 - 92 fL 11/06/2023 6:07 AM EDT [facility] MCH 24.5(L) 25.7 - 32.2 pg 11/06/2023 6:07 AM EDT [facility] MCHC 29.8(L) 32.3 - 36.5 GM/DL 11/06/2023 6:07 AM EDT [facility] RDW 16.7(H) 11.6 - 14.4 % 11/06/2023 6:07 AM EDT [facility] Platelets 199 140 - 375 K/CU MM 11/06/2023 6:07 AM EDT [facility] MPV 11.3 9.4 - 12.4 fL 11/06/2023 6:07 AM EDT [facility] NRBC Absolute <0.01 0 - 0.012 K/ul 11/06/2023 6:07 AM EDT [facility] Blood Venipuncture / Unknown 11/06/2023 4:57 AM EDT 11/06/2023 5:43 AM EDT Narrative [facility] - 11/06/2023 6:07 AM EDT When [...] DO LAB BLOOD ORDERABLES Final Re sult [facility] [address] [phone] * Glucose, Nova Meter (11/05/2023 7:28 PM EDT) POC-GLUCOSE 95 70 - 110 mg/dL 11/05/2023 7:30 PM EDT [facility] Comment: In the event of poor peripheral blood flow, venous or arterial blood should be used due to the potential of erroneous results. Notified Nurse RBV Marketing Strategy Manager [phone] 11/05/2023 7:30 PM EDT [facility] Blood WHOLE BLOOD / Unknown 11/05/2023 7:28 PM EDT 11/05/2023 7:29 PM EDT Narrative [facility] - 11/05/2023 7:30 PM EDT Marketing Strategy Manager ID is - [phone] us Ismaeel Romulo DO POINT OF CARE TEST ORDERABLES Final Result Performing Organization Address [facility]/ZIP Co de Phone Number [facility] [address] [phone] * (ABNORMAL) Glucose, Nova Meter (11/05/2023 5:14 PM EDT) POC-GLUCOSE 185(H) 70 - 110 mg/dL 11/05/2023 5:15 PM EDT [facility] Comment: In the event of poor peripheral blood flow, venous or arterial blood should be used due to the potential of erroneous results. Notified Nurse RBV Marketing Strategy Manager [phone] 11/05/2023 5:15 PM EDT [facility] Blood WHOLE BLOOD / Unknown 11/05/2023 5:14 PM EDT 11/05/2023 5:15 PM EDT Narrative [facility] - 11/05/2023 5:15 PM EDT Marketing Strategy Manager ID is - [phone] us Ismaeel Romulo DO POINT OF CARE TEST ORDERABLES Final Result Performing Organization Address [facility]/ZIP Co de Phone Number [facility] [address] [phone] * (ABNORMAL) Glucose, Nova Meter (11/05/2023 11:10 AM EDT) POC-GLUCOSE 139(H) 70 - 110 mg/dL 11/05/2023 11:11 AM EDT [facility] Comment: In the event of poor peripheral blood flow, venous or arterial blood should be used due to the potential of erroneous results. Notified Nurse RBV Marketing Strategy Manager [phone] 11/05/2023 11:11 AM EDT [facility] Blood WHOLE BLOOD / Unknown 11/05/2023 11:10 AM EDT 11/05/2023 11:11 AM EDT Narrative [facility] - 11/05/2023 11:11 AM EDT Marketing Strategy Manager ID is - [phone] us Ismaeel Romulo DO POINT OF CARE TEST ORDERABLES Final Result [facility] [address] [phone] * XR chest AP portable (11/05/2023 7:45 [...] - 110 mg/dL 11/05/2023 7:32 AM EDT [facility] Comment: In the event of poor peripheral blood flow, venous or arterial blood should be used due to the potential of erroneous results. Notified Nurse RBV Marketing Strategy Manager [phone] 11/05/2023 7:32 AM EDT [facility] Blood WHOLE BLOOD / Unknown 11/05/2023 7:30 AM EDT 11/05/2023 7:32 AM EDT Narrative [facility] - 11/05/2023 7:32 AM EDT Marketing Strategy Manager ID is - [phone] us Ismaeel Romulo DO POINT OF CARE TEST ORDERABLES Final Result [facility] [address] [phone] * (ABNORMAL) Manual Differential (11/05/2023 3:27 AM EDT) Pathologist [facility] Total Counted 100 11/05/2023 6:47 AM EDT [facility] % Neutros (manual) 60 50 - 65 % 11/05/2023 6:47 AM EDT [facility] % Lymphs (manual) 32 24 - 44 % 11/05/2023 6:47 AM EDT [facility] % Monos (manual) 3(L) 4 - 5 % 11/05/2023 6:47 AM EDT [facility] % Eos (manual) 5(H) 0 - 3 % 11/05/2023 6:47 AM EDT [facility] Reactive Lymphocytes Present 11/05/2023 6:47 AM EDT [facility] Comment:Occasional RBC Morphology Normal Normal 11/05/2023 6:47 AM EDT [facility] Platelet Estimate Adequate Adequate 11/05/2023 6:47 AM EDT [facility] Hypochromia 1+ 11/05/2023 6:47 AM EDT [facility] ANC# 2.28 K/??L 11/05/2023 6:47 AM EDT [facility] Blood Venipuncture / Unknown 11/05/2023 3:27 AM EDT 11/05/2023 3:41 AM EDT us Ismaeel Romulo DO LAB BLOOD ORDERABLES Final Re sult Performing Organization Address [facility]/ZIP Co de Phone Number [facility] [address] [phone] * Magnesium (11/05/2023 3:27 AM EDT) Magnesium 2.2 1.5 - 2.4 mg/dL 11/05/2023 4:15 AM EDT [facility] Blood Venipuncture / Unknown 11/05/2023 3:27 AM EDT 11/05/2023 3:42 AM EDT us Ismneel Romulo DO LAB BLOOD ORDERABLES Final Re sult Performing Organization Address [facility] Co de Phone Number [facility] [address] [phone] * (ABNORMAL) CBC with automated diff (11/05/2023 3:27 AM EDT) WBC 3.8(L) 4.2 - 9.1 K/??L 11/05/2023 6:42 AM EDT [facility] RBC 4.28(L) 4.63 - 6.08 M/??L 11/05/2023 6:42 AM EDT [facility] Hemoglobin 10.4(L) 13.7 - 17.5 GM/DL 11/05/2023 6:42 AM EDT [facility] Hematocrit 34.8(L) 40.1 - 51.0 % 11/05/2023 6:42 AM EDT [facility] MCV 81 79 - 92 fL 11/05/2023 6:42 AM EDT [facility] MCH 24.3(L) 25.7 - 32.2 pg 11/05/2023 6:42 AM EDT [facility] MCHC 29.9(L) 32.3 - 36.5 GM/DL 11/05/2023 6:42 AM EDT [facility] RDW 16.7(H) 11.6 - 14.4 % 11/05/2023 6:42 AM EDT [facility] Platelets 194 140 - 375 K/CU MM 11/05/2023 6:42 AM EDT [facility] MPV 11.4 9.4 - 12.4 fL 11/05/2023 6:42 AM EDT [facility] NRBC Absolute <0.01 0 - 0.012 K/ul 11/05/2023 6:42 AM EDT [facility] Blood Venipuncture / Unknown 11/05/2023 3:27 AM EDT 11/05/2023 3:41 AM EDT Narrative [facility] - 11/05/2023 6:42 AM EDT When [...] DO LAB BLOOD ORDERABLES Final Re sult [facility] [address] [phone] * (ABNORMAL) Basic Metabolic Panel (11/05/2023 3:27 AM EDT) Sodium 138 136 - 146 meq/L 11/05/2023 4:15 AM EDT [facility] Potassium 4.3 3.5 - 5.1 meq/L 11/05/2023 4:15 AM EDT [facility] Chloride 102 102 - 112 meq/L 11/05/2023 4:15 AM EDT [facility] CO2 32 21 - 32 meq/L 11/05/2023 4:15 AM EDT [facility] Anion Gap 8(L) 9 - 20 11/05/2023 4:15 AM EDT [facility] BUN 58(H) 7 - 22 mg/dL 11/05/2023 4:15 AM EDT [facility] Creatinine 3.25(H) 0.70 - 1.30 mg/dL 11/05/2023 4:15 AM EDT [facility] BUN/Creatinine 18 8 - 20 11/05/2023 4:15 AM EDT [facility] Glucose 103 74 - 106 mg/dL 11/05/2023 4:15 AM EDT [facility] Calcium 9.0 8.4 - 10.1 mg/dL 11/05/2023 4:15 AM EDT [facility] Osmolality Calc 292.1 4:15 AM EDT [facility] eGFR (mL/min/1.73m2) 21(L) >=60 mL/min/1.7 3m2 11/05/2023 4:15 AM EDT [facility] Comment:eGFR of <60 suggests chronic kidney disease if found over a 3 month period of time. eGFR <15 indicates renal failure. Blood Venipuncture / Unknown 11/05/2023 3:27 AM EDT 11/05/2023 3:42 AM EDT us Ismaeel Romulo DO LAB BLOOD ORDERABLES Final Re sult [facility] [address] [phone] * (ABNORMAL) Glucose, Nova Meter (11/04/2023 8:25 PM EDT) POC-GLUCOSE 159(H) 70 - 110 mg/dL 11/04/2023 8:26 PM EDT [facility] Comment: In the event of poor peripheral blood flow, venous or arterial blood should be used due to the potential of erroneous results. Notified Nurse RBV Marketing Strategy Manager [phone] 11/04/2023 8:26 PM EDT [facility] Blood WHOLE BLOOD / Unknown 11/04/2023 8:25 PM EDT 11/04/2023 8:26 PM EDT Narrative [facility] - 11/04/2023 8:26 PM EDT Marketing Strategy Manager ID is - [phone] us Ismaeel Romulo DO POINT OF CARE TEST ORDERABLES Final Result Performing Organization Address City/[facility]/ZIP Co de Phone Number [facility] [address] [phone] * (ABNORMAL) Glucose, Nova Meter (11/04/2023 4:19 PM EDT) POC-GLUCOSE 119(H) 70 - 110 mg/dL 11/05/2023 8:46 AM EDT [facility] Comment:In the event of poor peripheral blood flow, venous or arterial blood should be used due to the potential of erroneous results. Marketing Strategy Manager [phone] 11/05/2023 8:46 AM EDT [facility] Blood WHOLE BLOOD / Unknown 11/04/2023 4:19 PM EDT 11/05/2023 8:46 AM EDT Narrative [facility] - 11/05/2023 8:46 AM EDT Marketing Strategy Manager ID is - [phone] us Ismaeel Romulo DO POINT OF CARE TEST ORDERABLES Final Result Performing Organization Address City/[facility]/ZIP Co de Phone Number [facility] [address] [phone] * Magnesium (11/04/2023 2:48 PM EDT) Magnesium 2.2 1.5 - 2.4 mg/dL 11/04/2023 3:36 PM EDT [facility] Blood Venipuncture / Unknown 11/04/2023 2:48 PM EDT 11/04/2023 2:56 PM EDT us Ismaeel Romulo DO LAB BLOOD ORDERABLES Final Re sult [facility] 1 [place] [address], [facility] [phone] * (ABNORMAL) CBC with automated diff (11/04/2023 2:48 PM EDT) WBC 4.0(L) 4.2 - 9.1 K/??L 11/04/2023 2:59 PM EDT [facility] RBC 4.26(L) 4.63 - 6.08 M/??L 11/04/2023 2:59 PM EDT [facility] Hemoglobin 10.5(L) 13.7 - 17.5 GM/DL 11/04/2023 2:59 PM EDT [facility] Hematocrit 34.8(L) 40.1 - 51.0 % 11/04/2023 2:59 PM EDT [facility] MCV 82 79 - 92 fL 11/04/2023 2:59 PM EDT [facility] MCH 24.6(L) 25.7 - 32.2 pg 11/04/2023 2:59 PM EDT [facility] MCHC 30.2(L) 32.3 - 36.5 GM/DL 11/04/2023 2:59 PM EDT [facility] RDW 16.6(H) 11.6 - 14.4 % 11/04/2023 2:59 PM EDT [facility] Platelets 196 140 - 375 K/CU MM 11/04/2023 2:59 PM EDT [facility] MPV 10.8 9.4 - 12.4 fL 11/04/2023 2:59 PM EDT [facility] % Neutros 62 34 - 68 % 11/04/2023 2:59 PM EDT [facility] % Lymphs 26 22 - 53 % 11/04/2023 2:59 PM EDT [facility] % Monos 9 5 - 12 % 11/04/2023 2:59 PM EDT [facility] % Eos 3 1 - 7 % 11/04/2023 2:59 PM EDT [facility] % Baso 1 0 - 1 % 11/04/2023 2:59 PM EDT [facility] NRBC Absolute <0.01 0 - 0.012 K/ul 11/04/2023 2:59 PM EDT [facility] # Neutros 2.50 1.78 - 5.38 K/??L 11/04/2023 2:59 PM EDT [facility] # Lymphs 1.03(L) 1.32 - 3.57 K/??L 11/04/2023 2:59 PM EDT [facility] # Monos 0.37 0.30 - 0.82 K/??L 11/04/2023 2:59 PM EDT [facility] # Eos 0.10 0.04 - 0.54 K/??L 11/04/2023 2:59 PM EDT [facility] # Baso <0.03 0.01 - 0.08 K/??L 11/04/2023 2:59 PM EDT [facility] Immature Granulocytes-Re lative 0.20 0.01 - 0.43 % 11/04/2023 2:59 PM EDT [facility] # IG <0.03 0.00 - 0.03 K/uL 11/04/2023 2:59 PM EDT [facility] Blood Venipuncture / Unknown 11/04/2023 2:48 PM EDT 11/04/2023 2:56 PM EDT Narrative [facility] - 11/04/2023 2:59 PM EDT When [...] DO LAB BLOOD ORDERABLES Final Re sult [facility] [address] [phone] * (ABNORMAL) Basic Metabolic Panel (11/04/2023 2:48 PM EDT) Sodium 137 136 - 146 meq/L 11/04/2023 3:36 PM EDT [facility] Potassium 4.8 3.5 - 5.1 meq/L 11/04/2023 3:36 PM EDT [facility] Chloride 100(L) 102 - 112 meq/L 11/04/2023 3:36 PM EDT [facility] CO2 33(H) 21 - 32 meq/L 11/04/2023 3:36 PM EDT [facility] Anion Gap 9 9 - 20 11/04/2023 3:36 PM EDT [facility] BUN 56(H) 7 - 22 mg/dL 11/04/2023 3:36 PM EDT [facility] Creatinine 3.46(H) 0.70 - 1.30 mg/dL 11/04/2023 3:36 PM EDT [facility] BUN/Creatinine 16 8 - 20 11/04/2023 3:36 PM EDT [facility] Glucose 108(H) 74 - 106 mg/dL 11/04/2023 3:36 PM EDT [facility] Calcium 9.1 8.4 - 10.1 mg/dL 11/04/2023 3:36 PM EDT [facility] Osmolality Calc 289.8 3:36 PM EDT [facility] eGFR (mL/min/1.73m2) 20(L) >=60 mL/min/1.7 3m2 11/04/2023 3:36 PM EDT [facility] Comment:eGFR of <60 suggests chronic kidney disease if found over a 3 month period of time. eGFR <15 indicates renal failure. Blood Venipuncture / Unknown 11/04/2023 2:48 PM EDT 11/04/2023 2:56 PM EDT us Ismaeel Romulo DO LAB BLOOD ORDERABLES Final Re sult [facility] [address] [phone] * (ABNORMAL) Glucose, Nova Meter (11/04/2023 10:47 AM EDT) POC-GLUCOSE 200(H) 70 - 110 mg/dL 11/04/2023 11:00 AM EDT [facility] Comment: In the event of poor peripheral blood flow, venous or arterial blood should be used due to the potential of erroneous results. Notified Nurse RBV Marketing Strategy Manager [id number] 11/04/2023 11:00 AM EDT [facility] Blood WHOLE BLOOD / Unknown 11/04/2023 10:47 AM EDT 11/04/2023 11:00 AM EDT Narrative [facility] - 11/04/2023 11:00 AM EDT Marketing Strategy Manager ID is - [id number] us Ismaeel Romulo DO POINT OF CARE TEST ORDERABLES Final Result Performing Organization Address [facility] de Phone Number [facility] [address] [phone] * (ABNORMAL) Glucose, Nova Meter (11/04/2023 8:40 AM EDT) POC-GLUCOSE 130(H) 70 - 110 mg/dL 11/04/2023 8:41 AM EDT [facility] Comment: In the event of poor peripheral blood flow, venous or arterial blood should be used due to the potential of erroneous results. Notified Nurse RBV Marketing Strategy Manager [id number] 11/04/2023 8:41 AM EDT [facility] Blood WHOLE BLOOD / Unknown 11/04/2023 8:40 AM EDT 11/04/2023 8:41 AM EDT Narrative [facility] - 11/04/2023 8:41 AM EDT Marketing Strategy Manager ID is - [phone] us Ismaeel Romulo DO POINT OF CARE TEST ORDERABLES Final Result Performing Organization Address [facility] Co de Phone Number [facility] [address] [phone] * XR chest AP portable (11/04/2023 8:05 [...] Result * Magnesium (11/04/2023 4:55 AM EDT) [facility] Magnesium 2.3 1.5 - 2.4 mg/dL 11/04/2023 6:18 AM EDT [facility] Blood Venipuncture / Unknown 11/04/2023 4:55 AM EDT 11/04/2023 5:45 AM EDT Gurinder Samayoa APRN LAB BLOOD ORDERABLES Final Result [facility] [address] [place] [address], [facility] [phone] * (ABNORMAL) Glucose, Nova Meter (11/03/2023 8:34 PM EDT) [facility] POC-GLUCOSE 127(H) 70 - 110 mg/dL 11/03/2023 8:35 PM EDT [facility] Comment: In the event of poor peripheral blood flow, venous or arterial blood should be used due to the potential of erroneous results. Notified Nurse RBV Marketing Strategy Manager [id number] 11/03/2023 8:35 PM EDT [facility] Blood WHOLE BLOOD / Unknown 11/03/2023 8:34 PM EDT 11/03/2023 8:35 PM EDT Narrative [facility] - 11/03/2023 8:35 PM EDT Marketing Strategy Manager ID is - [id number] Ismaeel Romulo DO POINT OF CARE TEST ORDERABLES Final Result Performing Organization Address [facility] de Phone Number [facility] [address] [phone] * (ABNORMAL) Glucose, Nova Meter (11/03/2023 4:53 PM EDT) POC-GLUCOSE 186(H) 70 - 110 mg/dL 11/03/2023 4:55 PM EDT [facility] Comment: In the event of poor peripheral blood flow, venous or arterial blood should be used due to the potential of erroneous results. Notified Nurse RBV Marketing Strategy Manager [id number] 11/03/2023 4:55 PM EDT [facility] Blood WHOLE BLOOD / Unknown 11/03/2023 4:53 PM EDT 11/03/2023 4:55 PM EDT Narrative [facility] - 11/03/2023 4:55 PM EDT Marketing Strategy Manager ID is - [id number] [facility] Romulo DO POINT OF CARE TEST ORDERABLES Final Result Performing Organization Address City/[facility] Co de Phone Number [facility] [address] [phone] * (ABNORMAL) Glucose, Nova Meter (11/03/2023 11:23 AM EDT) POC-GLUCOSE 153(H) 70 - 110 mg/dL 11/03/2023 11:25 AM EDT [facility] Comment: In the event of poor peripheral blood flow, venous or arterial blood should be used due to the potential of erroneous results. Notified Nurse RBV Marketing Strategy Manager [phone] 11/03/2023 11:25 AM EDT [facility] Blood WHOLE BLOOD / Unknown 11/03/2023 11:23 AM EDT 11/03/2023 11:25 AM EDT Narrative [facility] - 11/03/2023 11:25 AM EDT Marketing Strategy Manager ID is - [id number] us Ismaeel Romulo DO POINT OF CARE TEST ORDERABLES Final Result [facility] [address] [phone] * XR chest AP portable (11/03/2023 9:53 [...] - 110 mg/dL 11/03/2023 8:11 AM EDT [facility] Comment: In the event of poor peripheral blood flow, venous or arterial blood should be used due to the potential of erroneous results. Notified Nurse RBV Marketing Strategy Manager [phone] 11/03/2023 8:11 AM EDT [facility] Blood WHOLE BLOOD / Unknown 11/03/2023 8:10 AM EDT 11/03/2023 8:11 AM EDT Narrative [facility] - 11/03/2023 8:11 AM EDT Marketing Strategy Manager ID is - [id number] us Ismaeel Romulo DO POINT OF CARE TEST ORDERABLES Final Result Performing Organization Address City/State/[facility] Co de Phone Number [facility] [address] [phone] * (ABNORMAL) Basic Metabolic Panel (11/03/2023 5:38 AM EDT) Pathologist [facility] Sodium 137 136 - 146 meq/L 11/03/2023 9:47 AM EDT [facility] Potassium 4.1 3.5 - 5.1 meq/L 11/03/2023 9:47 AM EDT [facility] Chloride 99(L) 102 - 112 meq/L 11/03/2023 9:47 AM EDT [facility] CO2 32 21 - 32 meq/L 11/03/2023 9:47 AM EDT [facility] Anion Gap 10 9 - 20 11/03/2023 9:47 AM EDT [facility] BUN 57(H) 7 - 22 mg/dL 11/03/2023 9:47 AM EDT [facility] Creatinine 3.60(H) 0.70 - 1.30 mg/dL 11/03/2023 9:47 AM EDT [facility] BUN/Creatinine 16 8 - 20 11/03/2023 9:47 AM EDT [facility] Glucose 119(H) 74 - 106 mg/dL 11/03/2023 9:47 AM EDT [facility] Calcium 8.9 8.4 - 10.1 mg/dL 11/03/2023 9:47 AM EDT [facility] Osmolality Calc 290.8 9:47 AM EDT [facility] eGFR (mL/min/1.73m2) 19(L) >=60 mL/min/1.7 3m2 11/03/2023 9:47 AM EDT [facility] Comment:eGFR of <60 suggests chronic kidney disease if found over a 3 month period of time. eGFR <15 indicates renal failure. Blood Venipuncture / Unknown 11/03/2023 5:38 AM EDT 11/03/2023 5:52 AM EDT Bing Sebastian DO LAB BLOOD ORDERABLES Final Re sult [facility] [address] [phone] * Magnesium (11/03/2023 5:38 AM EDT) Pathologist [facility] Magnesium 2.3 1.5 - 2.4 mg/dL 11/03/2023 6:30 AM EDT [facility] Blood Venipuncture / Unknown 11/03/2023 5:38 AM EDT 11/03/2023 5:52 AM EDT us Gurinder Samayoa APRN LAB BLOOD ORDERABLES Final Result [facility] [address] [phone] * (ABNORMAL) Glucose, Nova Meter (11/02/2023 4:40 PM EDT) POC-GLUCOSE 181(H) 70 - 110 mg/dL 11/02/2023 4:41 PM EDT [facility] Comment: In the event of poor peripheral blood flow, venous or arterial blood should be used due to the potential of erroneous results. Notified Nurse RBV Marketing Strategy Manager [id number] 11/02/2023 4:41 PM EDT [facility] Blood WHOLE BLOOD / Unknown 11/02/2023 4:40 PM EDT 11/02/2023 4:41 PM EDT Narrative [facility] - 11/02/2023 4:41 PM EDT Marketing Strategy Manager ID is - [phone] us Ismaeel Romulo DO POINT OF CARE TEST ORDERABLES Final Result [facility] [address] [phone] * (ABNORMAL) Glucose, Nova Meter (11/02/2023 12:14 PM EDT) POC-GLUCOSE 155(H) 70 - 110 mg/dL 11/02/2023 12:15 PM EDT [facility] Comment: In the event of poor peripheral blood flow, venous or arterial blood should be used due to the potential of erroneous results. Notified Nurse RBV Marketing Strategy Manager [id number] 11/02/2023 12:15 PM EDT [facility] Blood WHOLE BLOOD / Unknown 11/02/2023 12:14 PM EDT 11/02/2023 12:15 PM EDT Narrative [facility] - 11/02/2023 12:15 PM EDT Marketing Strategy Manager ID is - [id number] us Ismaeel Romulo DO POINT OF CARE TEST ORDERABLES Final Result [facility] [address] [phone] * XR chest AP portable (11/02/2023 10:42 [...] by Dr. Stephon Cedillo. Transcribed by Lia Hakw PA-C. us Ismaeel Romulo DO IMG DIAGNOSTIC IMAGING ORDERA BLES Final Result * (ABNORMAL) Glucose, Nova Meter (11/02/2023 7:38 AM EDT) POC-GLUCOSE 143(H) 70 - 110 mg/dL 11/02/2023 7:39 AM EDT [facility] Comment: In the event of poor peripheral blood flow, venous or arterial blood should be used due to the potential of erroneous results. Notified Nurse RBV Marketing Strategy Manager [id number] 11/02/2023 7:39 AM EDT [facility] Blood WHOLE BLOOD / Unknown 11/02/2023 7:38 AM EDT 11/02/2023 7:39 AM EDT Narrative [facility] - 11/02/2023 7:39 AM EDT Marketing Strategy Manager ID is - [phone] us Ismaeel Romulo DO POINT OF CARE TEST ORDERABLES Final Result [facility] [address] [phone] * Magnesium (11/02/2023 4:30 AM EDT) Magnesium 2.0 1.5 - 2.4 mg/dL 11/02/2023 5:52 AM EDT [facility] Blood Venipuncture / Unknown 11/02/2023 4:30 AM EDT 11/02/2023 5:29 AM EDT us Gurinder Samayoa ANTIQUER LAB BLOOD ORDERABLES Final Result [facility] [address] [phone] * (ABNORMAL) Basic Metabolic Panel (11/02/2023 4:30 AM EDT) Pathologist [facility] Sodium 136 136 - 146 meq/L 11/02/2023 5:52 AM EDT [facility] Potassium 4.3 3.5 - 5.1 meq/L 11/02/2023 5:52 AM EDT [facility] Chloride 97(L) 102 - 112 meq/L 11/02/2023 5:52 AM EDT [facility] CO2 33(H) 21 - 32 meq/L 11/02/2023 5:52 AM EDT [facility] Anion Gap 10 9 - 20 11/02/2023 5:52 AM EDT [facility] BUN 56(H) 7 - 22 mg/dL 11/02/2023 5:52 AM EDT [facility] Creatinine 3.89(H) 0.70 - 1.30 mg/dL 11/02/2023 5:52 AM EDT [facility] BUN/Creatinine 14 8 - 20 11/02/2023 5:52 AM EDT [facility] Glucose 161(H) 74 - 106 mg/dL 11/02/2023 5:52 AM EDT [facility] Calcium 8.9 8.4 - 10.1 mg/dL 11/02/2023 5:52 AM EDT [facility] Osmolality Calc 290.9 5:52 AM EDT [facility] eGFR (mL/min/1.73m2) 17(L) >=60 mL/min/1.7 3m2 11/02/2023 5:52 AM EDT [facility] Comment:eGFR of <60 suggests chronic kidney disease if found over a 3 month period of time. eGFR <15 indicates renal failure. Blood Venipuncture / Unknown 11/02/2023 4:30 AM EDT 11/02/2023 5:29 AM EDT us Gurinder Samayoa ANTIQUER LAB BLOOD ORDERABLES Final Result [facility] [address] [place] [address], [facility] [phone] * (ABNORMAL) Glucose, Nova Meter (11/01/2023 7:28 PM EDT) POC-GLUCOSE 137(H) 70 - 110 mg/dL 11/01/2023 7:30 PM EDT [facility] Comment: In the event of poor peripheral blood flow, venous or arterial blood should be used due to the potential of erroneous results. Notified Nurse RBV Marketing Strategy Manager [phone] 11/01/2023 7:30 PM EDT [facility] Blood WHOLE BLOOD / Unknown 11/01/2023 7:28 PM EDT 11/01/2023 7:30 PM EDT Narrative [facility] - 11/01/2023 7:30 PM EDT Marketing Strategy Manager ID is - [id number] us Nohelia Deutsch DO POINT OF CARE TEST ORDERABLE S Final Result [facility] [address] [place] [address], [facility] [phone] * (ABNORMAL) Glucose, Nova Meter (11/01/2023 3:59 PM EDT) POC-GLUCOSE 155(H) 70 - 110 mg/dL 11/01/2023 4:00 PM EDT [facility] Comment: In the event of poor peripheral blood flow, venous or arterial blood should be used due to the potential of erroneous results. Notified Nurse RBV Marketing Strategy Manager [phone] 11/01/2023 4:00 PM EDT [facility] Blood WHOLE BLOOD / Unknown 11/01/2023 3:59 PM EDT 11/01/2023 4:00 PM EDT Narrative [facility] - 11/01/2023 4:00 PM EDT Marketing Strategy Manager ID is - [phone] Nohelia PalTalasima DO POINT OF CARE TEST ORDERABLE S Final Result Performing Organization Address City/State/[facility] Co de Phone Number [facility] [address] [phone] * (ABNORMAL) Glucose, Nova Meter (11/01/2023 11:49 AM EDT) POC-GLUCOSE 147(H) 70 - 110 mg/dL 11/01/2023 11:50 AM EDT [facility] Comment: In the event of poor peripheral blood flow, venous or arterial blood should be used due to the potential of erroneous results. Notified Nurse RBV Marketing Strategy Manager [phone] 11/01/2023 11:50 AM EDT [facility] Blood WHOLE BLOOD / Unknown 11/01/2023 11:49 AM EDT 11/01/2023 11:50 AM EDT Narrative [facility] - 11/01/2023 11:50 AM EDT Marketing Strategy Manager ID is - [phone] Nohelia PalTalasima DO POINT OF CARE TEST ORDERABLE S Final Result [facility] [address] [place] [address], [facility] [phone] * (ABNORMAL) Glucose, Nova Meter (11/01/2023 7:44 AM EDT) POC-GLUCOSE 112(H) 70 - 110 mg/dL 11/01/2023 7:46 AM EDT [facility] Comment: In the event of poor peripheral blood flow, venous or arterial blood should be used due to the potential of erroneous results. Notified Nurse RBV Marketing Strategy Manager [phone] 11/01/2023 7:46 AM EDT [facility] Blood WHOLE BLOOD / Unknown 11/01/2023 7:44 AM EDT 11/01/2023 7:46 AM EDT Narrative [facility] - 11/01/2023 7:46 AM EDT Marketing Strategy Manager ID is - [phone] us Nohelia Deutsch DO POINT OF CARE TEST ORDERABLE S Final Result [facility] [address] [phone] * (ABNORMAL) CBC - Hemogram (SJ-BKR) (11/01/2023 5:29 AM EDT) WBC 4.1(L) 4.2 - 9.1 K/??L 11/01/2023 6:02 AM EDT [facility] RBC 4.22(L) 4.63 - 6.08 M/??L 11/01/2023 6:02 AM EDT [facility] Hemoglobin 10.3(L) 13.7 - 17.5 GM/DL 11/01/2023 6:02 AM EDT [facility] Hematocrit 34.0(L) 40.1 - 51.0 % 11/01/2023 6:02 AM EDT [facility] MCV 81 79 - 92 fL 11/01/2023 6:02 AM EDT [facility] MCH 24.4(L) 25.7 - 32.2 pg 11/01/2023 6:02 AM EDT [facility] MCHC 30.3(L) 32.3 - 36.5 GM/DL 11/01/2023 6:02 AM EDT [facility] RDW 16.6(H) 11.6 - 14.4 % 11/01/2023 6:02 AM EDT [facility] Platelets 200 140 - 375 K/CU MM 11/01/2023 6:02 AM EDT [facility] MPV 11.1 9.4 - 12.4 fL 11/01/2023 6:02 AM EDT [facility] Blood Venipuncture / Unknown 11/01/2023 5:29 AM EDT 11/01/2023 5:52 AM EDT Narrative [facility] - 11/01/2023 6:02 AM EDT Note: reference ranges were changed on 04/27/2023. us Nohelia Deutsch DO LAB BLOOD ORDERABLES Final R esult [facility] [address] [phone] * (ABNORMAL) Basic Metabolic Panel (11/01/2023 5:29 AM EDT) Sodium 138 136 - 146 meq/L 11/01/2023 6:12 AM EDT [facility] Potassium 4.4 3.5 - 5.1 meq/L 11/01/2023 6:12 AM EDT [facility] Chloride 100(L) 102 - 112 meq/L 11/01/2023 6:12 AM EDT [facility] CO2 31 21 - 32 meq/L 11/01/2023 6:12 AM EDT [facility] Anion Gap 11 9 - 20 11/01/2023 6:12 AM EDT [facility] BUN 52(H) 7 - 22 mg/dL 11/01/2023 6:12 AM EDT [facility] Creatinine 3.54(H) 0.70 - 1.30 mg/dL 11/01/2023 6:12 AM EDT [facility] BUN/Creatinine 15 8 - 20 11/01/2023 6:12 AM EDT [facility] Glucose 118(H) 74 - 106 mg/dL 11/01/2023 6:12 AM EDT [facility] Calcium 8.8 8.4 - 10.1 mg/dL 11/01/2023 6:12 AM EDT [facility] Osmolality Calc 290.8 6:12 AM EDT [facility] [facility] eGFR (mL/min/1.73m2) 19(L) >=60 mL/min/1.7 3m2 11/01/2023 6:12 AM EDT [facility] Comment:eGFR of <60 suggests chronic kidney disease if found over a 3 month period of time. eGFR <15 indicates renal failure. Blood Venipuncture / Unknown 11/01/2023 5:29 AM EDT 11/01/2023 5:52 AM EDT Gurinder Samayoa APRN LAB BLOOD ORDERABLES Final Result Performing Organization Address [facility]/ZIP Co de Phone Number [facility] [address] [phone] * Magnesium (11/01/2023 5:29 AM EDT) Pathologist [facility] Magnesium 2.2 1.5 - 2.4 mg/dL 11/01/2023 6:12 AM EDT [facility] Blood Venipuncture / Unknown 11/01/2023 5:29 AM EDT 11/01/2023 5:52 AM EDT Gurinder Samayoa APRN LAB BLOOD ORDERABLES Final Result Performing Organization Address [facility] Co de Phone Number [facility] [address] [phone] * (ABNORMAL) Glucose, Nova Meter (10/31/2023 7:47 PM EDT) POC-GLUCOSE 149(H) 70 - 110 mg/dL 10/31/2023 7:48 PM EDT [facility] Comment: In the event of poor peripheral blood flow, venous or arterial blood should be used due to the potential of erroneous results. Protocols Followed Marketing Strategy Manager [phone] 10/31/2023 7:48 PM EDT [facility] Blood WHOLE BLOOD / Unknown 10/31/2023 7:47 PM EDT 10/31/2023 7:48 PM EDT Narrative [facility] - 10/31/2023 7:48 PM EDT Marketing Strategy Manager ID is - [id number] Nohelia Hernandeza DO POINT OF CARE TEST ORDERABLE S Final Result Performing Organization Address [facility] Co de Phone Number [facility] 1 [place] [address], [facility] [phone] * (ABNORMAL) Glucose, Nova Meter (10/31/2023 4:37 PM EDT) POC-GLUCOSE 176(H) 70 - 110 mg/dL 10/31/2023 4:38 PM EDT [facility] Comment: In the event of poor peripheral blood flow, venous or arterial blood should be used due to the potential of erroneous results. Notified Nurse RBV Marketing Strategy Manager [id number] 10/31/2023 4:38 PM EDT [facility] Blood WHOLE BLOOD / Unknown 10/31/2023 4:37 PM EDT 10/31/2023 4:38 PM EDT Narrative [facility] - 10/31/2023 4:38 PM EDT Marketing Strategy Manager ID is - [id number] [facility] DO POINT OF CARE TEST ORDERABLE S Final Result Performing Organization Address [facility] Co de Phone Number [facility] 1 [place] [address], [facility] [phone] * (ABNORMAL) Glucose, Nova Meter (10/31/2023 12:13 PM EDT) POC-GLUCOSE 207(H) 70 - 110 mg/dL 10/31/2023 12:14 PM EDT [facility] Comment: In the event of poor peripheral blood flow, venous or arterial blood should be used due to the potential of erroneous results. Notified Nurse RBV Marketing Strategy Manager [phone] 10/31/2023 12:14 PM EDT [facility] Blood WHOLE BLOOD / Unknown 10/31/2023 12:13 PM EDT 10/31/2023 12:14 PM EDT Narrative [facility] - 10/31/2023 12:14 PM EDT Marketing Strategy Manager ID is - [id number] Nohelia Georgessuzanne DO POINT OF CARE TEST ORDERABLE S Final Result Performing Organization Address [facility] Co de Phone Number [facility] 1 [place] [address], [facility] [phone] * (ABNORMAL) Glucose, Nova Meter (10/31/2023 7:53 AM EDT) POC-GLUCOSE 131(H) 70 - 110 mg/dL 10/31/2023 7:55 AM EDT [facility] Comment: In the event of poor peripheral blood flow, venous or arterial blood should be used due to the potential of erroneous results. Notified Nurse RBV Marketing Strategy Manager [phone] 10/31/2023 7:55 AM EDT [facility] Blood WHOLE BLOOD / Unknown 10/31/2023 7:53 AM EDT 10/31/2023 7:55 AM EDT Narrative [facility] - 10/31/2023 7:55 AM EDT Marketing Strategy Manager ID is - [phone] Nohelia Deutsch DO POINT OF CARE TEST ORDERABLE S Final Result Performing Organization Address [facility] Co de Phone Number [facility] [address] [phone] * (ABNORMAL) CBC - Hemogram (SJ-BKR) (10/31/2023 4:36 AM EDT) WBC 4.6 4.2 - 9.1 K/??L 10/31/2023 5:08 AM EDT [facility] RBC 4.75 4.63 - 6.08 M/??L 10/31/2023 5:08 AM EDT [facility] Hemoglobin 11.5(L) 13.7 - 17.5 GM/DL 10/31/2023 5:08 AM EDT [facility] Hematocrit 38.4(L) 40.1 - 51.0 % 10/31/2023 5:08 AM EDT [facility] MCV 81 79 - 92 fL 10/31/2023 5:08 AM EDT [facility] MCH 24.2(L) 25.7 - 32.2 pg 10/31/2023 5:08 AM EDT [facility] MCHC 29.9(L) 32.3 - 36.5 GM/DL 10/31/2023 5:08 AM EDT [facility] RDW 16.6(H) 11.6 - 14.4 % 10/31/2023 5:08 AM EDT [facility] Platelets 241 140 - 375 K/CU MM 10/31/2023 5:08 AM EDT [facility] MPV 11.2 9.4 - 12.4 fL 10/31/2023 5:08 AM EDT [facility] Blood Venipuncture / Unknown 10/31/2023 4:36 AM EDT 10/31/2023 5:04 AM EDT Narrative [facility] - 10/31/2023 5:08 AM EDT Note: reference ranges were changed on 04/27/2023. us Nohelia Deutsch DO LAB BLOOD ORDERABLES Final R esult [facility] [address] [phone] * (ABNORMAL) Basic Metabolic Panel (10/31/2023 4:36 AM EDT) Sodium 137 136 - 146 meq/L 10/31/2023 5:50 AM EDT [facility] Potassium 4.6 3.5 - 5.1 meq/L 10/31/2023 5:50 AM EDT [facility] Chloride 101(L) 102 - 112 meq/L 10/31/2023 5:50 AM EDT [facility] CO2 31 21 - 32 meq/L 10/31/2023 5:50 AM EDT [facility] Anion Gap 10 9 - 20 10/31/2023 5:50 AM EDT [facility] BUN 47(H) 7 - 22 mg/dL 10/31/2023 5:50 AM EDT [facility] Creatinine 3.38(H) 0.70 - 1.30 mg/dL 10/31/2023 5:50 AM EDT [facility] BUN/Creatinine 14 8 - 20 10/31/2023 5:50 AM EDT [facility] Glucose 132(H) 74 - 106 mg/dL 10/31/2023 5:50 AM EDT [facility] Calcium 9.1 8.4 - 10.1 mg/dL 10/31/2023 5:50 AM EDT [facility] Osmolality Calc 287.9 5:50 AM EDT [facility] eGFR (mL/min/1.73m2) 20(L) >=60 mL/min/1.7 3m2 10/31/2023 5:50 AM EDT [facility] Comment:eGFR of <60 suggests chronic kidney disease if found over a 3 month period of time. eGFR <15 indicates renal failure. Blood Venipuncture / Unknown 10/31/2023 4:36 AM EDT 10/31/2023 5:09 AM EDT us Gurinder Samayoa APRN LAB BLOOD ORDERABLES Final Result Performing Organization Address City/[facility]/ZIP Co de Phone Number [facility] [address] [phone] * Magnesium (10/31/2023 4:36 AM EDT) Magnesium 2.3 1.5 - 2.4 mg/dL 10/31/2023 5:50 AM EDT [facility] Blood Venipuncture / Unknown 10/31/2023 4:36 AM EDT 10/31/2023 5:09 AM EDT us Gurinder Samayoa ANTIQUER LAB BLOOD ORDERABLES Final Result [facility] [address] [phone] * Glucose, Nova Meter (10/30/2023 8:43 PM EDT) POC-GLUCOSE 73 70 - 110 mg/dL 10/30/2023 8:45 PM EDT [facility] Comment: In the event of poor peripheral blood flow, venous or arterial blood should be used due to the potential of erroneous results. Notified Nurse RBV Marketing Strategy Manager [phone] 10/30/2023 8:45 PM EDT [facility] Blood WHOLE BLOOD / Unknown 10/30/2023 8:43 PM EDT 10/30/2023 8:45 PM EDT Narrative [facility] - 10/30/2023 8:45 PM EDT Marketing Strategy Manager ID is - [id number] [facility] DO POINT OF CARE TEST ORDERABLE S Final Result Performing Organization Address [facility]/ZIP Co de Phone Number [facility] [address] [phone] * Glucose, Nova Meter (10/30/2023 4:33 PM EDT) POC-GLUCOSE 99 70 - 110 mg/dL 10/30/2023 4:35 PM EDT [facility] Comment: In the event of poor peripheral blood flow, venous or arterial blood should be used due to the potential of erroneous results. Notified Nurse RBV Marketing Strategy Manager [phone] 10/30/2023 4:35 PM EDT [facility] Blood WHOLE BLOOD / Unknown 10/30/2023 4:33 PM EDT 10/30/2023 4:35 PM EDT Narrative [facility] - 10/30/2023 4:35 PM EDT Marketing Strategy Manager ID is - [id number] [employer] DO POINT OF CARE TEST ORDERABLE S Final Result Performing Organization Address City/[facility]/ZIP Co de Phone Number [facility] [address] [phone] * ECHO COMPLETE (DOPPLER / COLOR) WO CONTRAST (10/30/2023 1:00 PM EDT) Anatomical Region Laterality Modality Heart Vascular Ultraso und 10/30/2023 8:48 AM EDT Narrative 10/30/2023 1:07 PM EDT TRANSTHORACIC ECHOCARDIOGRAPHY REPORT Demographics Patient Name: ?XAVI ROBERT RAY ?: ?1965 ?JR. ?Age: ?58 year(s) Corporate ID Number: ?? [id number] ?Gender ?Male [employer]: ? LILLIAN Phillip ?Height: ? 73 inches [...] ?? E/A ratio: 1.2 m/s ? Volume [id number] ??LV length: 10.08 ml ?cm Volume mxpqqsam37.45 ml LVOT diameter: 2.19 cm Normal sized [...] . Age: 58 year(s) Corporate ID Number: [id number] Gender Male Manager [employer]: LILLIAN Phillip Height: 73 inches Referring Physician: [...] 0.69 m/s E/A ratio: 1.2 m/s Volume [id number] LV length: 10.08 ml cm Volume vxelgpvz05.45 ml LVOT diameter: 2.19 cm Normal sized [...] - 110 mg/dL 10/30/2023 11:17 AM EDT [facility] Comment: In the event of poor peripheral blood flow, venous or arterial blood should be used due to the potential of erroneous results. Notified Nurse RBV Marketing Strategy Manager [phone] 10/30/2023 11:17 AM EDT [facility] Blood WHOLE BLOOD / Unknown 10/30/2023 11:15 AM EDT 10/30/2023 11:17 AM EDT Narrative [facility] - 10/30/2023 11:17 AM EDT Marketing Strategy Manager ID is - [id number] us Nohelia Deutsch DO POINT OF CARE TEST ORDERABLE S Final Result [facility] [address] [phone] * XR chest AP portable (10/30/2023 9:57 [...] Nova Meter (10/30/2023 7:36 AM EDT) Pathologist [facility] POC-GLUCOSE 87 70 - 110 mg/dL 10/30/2023 8:07 AM EDT [facility] Comment:In the event of poor peripheral blood flow, venous or arterial blood should be used due to the potential of erroneous results. Marketing Strategy Manager [id number] 10/30/2023 8:07 AM EDT [facility] Blood WHOLE BLOOD / Unknown 10/30/2023 7:36 AM EDT 10/30/2023 8:07 AM EDT Narrative [facility] - 10/30/2023 8:07 AM EDT Marketing Strategy Manager ID is - [id number] Nohelia Deutsch DO POINT OF CARE TEST ORDERABLE S Final Result [facility] [address] [phone] * (ABNORMAL) Lipid panel (10/30/2023 4:39 AM EDT) Pathologist [facility] Triglycerides 120 0 - 249 mg/dL 10/30/2023 10:14 AM EDT [facility] Cholesterol 195 0 - 199 mg/dL 10/30/2023 10:14 AM EDT [facility] Comment: 200 to 239 mg/dL = ??Moderate (borderline) >239 mg/dL ? = ??High HDL 56 >=40 mg/dL 10/30/2023 10:14 AM EDT [facility] Comment: >=60 mg/dL = Desirable <40 mg/dL ??= Increased Risk All other components are listed individually or are calculations VLDL 24 5 - 40 mg/dL 10/30/2023 10:14 AM EDT [facility] Cholesterol/HDL ratio 3.5(H) 0.0 - 3.2 10/30/2023 10:14 AM EDT [facility] LDl/HDL Ratio 2 0 - 4 10/30/2023 10:14 AM EDT [facility] RISK COMP 3 10/30/2023 10:14 AM EDT [facility] LDL Cholesterol, Calculated 115(H) 0 - 99 mg/dL 10/30/2023 10:14 AM EDT [facility] Blood Venipuncture / Unknown 10/30/2023 4:39 AM EDT 10/30/2023 5:25 AM EDT us Everett Reed ANTIQUER LAB BLOOD ORDERABLES Final Result Performing Organization Address [facility]/ZIP Co de Phone Number [facility] [address] [phone] * Magnesium (10/30/2023 4:39 AM EDT) Magnesium 2.4 1.5 - 2.4 mg/dL 10/30/2023 5:58 AM EDT [facility] Blood Venipuncture / Unknown 10/30/2023 4:39 AM EDT 10/30/2023 5:25 AM EDT us Gurinder Samayoa ANTIQUER LAB BLOOD ORDERABLES Final Result [facility] [address] [phone] * (ABNORMAL) CBC with automated diff (10/30/2023 4:39 AM EDT) WBC 4.5 4.2 - 9.1 K/??L 10/30/2023 5:44 AM EDT [facility] RBC 4.33(L) 4.63 - 6.08 M/??L 10/30/2023 5:44 AM EDT [facility] Hemoglobin 10.5(L) 13.7 - 17.5 GM/DL 10/30/2023 5:44 AM EDT [facility] Hematocrit 35.6(L) 40.1 - 51.0 % 10/30/2023 5:44 AM EDT [facility] MCV 82 79 - 92 fL 10/30/2023 5:44 AM EDT [facility] MCH 24.2(L) 25.7 - 32.2 pg 10/30/2023 5:44 AM EDT [facility] MCHC 29.5(L) 32.3 - 36.5 GM/DL 10/30/2023 5:44 AM EDT [facility] RDW 16.7(H) 11.6 - 14.4 % 10/30/2023 5:44 AM EDT [facility] Platelets 231 140 - 375 K/CU MM 10/30/2023 5:44 AM EDT [facility] MPV 11.0 9.4 - 12.4 fL 10/30/2023 5:44 AM EDT [facility] Nucleated Red Blood Cell 0.0 0 - 0.2 % 10/30/2023 5:44 AM EDT [facility] % Neutros 63 34 - 68 % 10/30/2023 5:44 AM EDT [facility] % Lymphs 25 22 - 53 % 10/30/2023 5:44 AM EDT [facility] % Monos 9 5 - 12 % 10/30/2023 5:44 AM EDT [facility] % Eos 2 1 - 7 % 10/30/2023 5:44 AM EDT [facility] % Baso 1 0 - 1 % 10/30/2023 5:44 AM EDT [facility] NRBC Absolute <0.01 0 - 0.012 K/ul 10/30/2023 5:44 AM EDT [facility] # Neutros 2.87 1.78 - 5.38 K/??L 10/30/2023 5:44 AM EDT [facility] # Lymphs 1.13(L) 1.32 - 3.57 K/??L 10/30/2023 5:44 AM EDT [facility] # Monos 0.42 0.30 - 0.82 K/??L 10/30/2023 5:44 AM EDT [facility] # Eos 0.07 0.04 - 0.54 K/??L 10/30/2023 5:44 AM EDT [facility] # Baso 0.04 0.01 - 0.08 K/??L 10/30/2023 5:44 AM EDT [facility] Immature Granulocytes-Re lative 0.20 0.01 - 0.43 % 10/30/2023 5:44 AM EDT [facility] # IG <0.03 0.00 - 0.03 K/uL 10/30/2023 5:44 AM EDT [facility] Blood Venipuncture / Unknown 10/30/2023 4:39 AM EDT 10/30/2023 5:25 AM EDT Narrative [facility] - 10/30/2023 5:44 AM EDT When [...] DO LAB BLOOD ORDERABLES Final R esult [facility] [address] [phone] * (ABNORMAL) Comprehensive metabolic panel (10/30/2023 4:39 AM EDT) Sodium 138 136 - 146 meq/L 10/30/2023 5:58 AM EDT [facility] Potassium 4.8 3.5 - 5.1 meq/L 10/30/2023 5:58 AM EDT [facility] Chloride 105 102 - 112 meq/L 10/30/2023 5:58 AM EDT [facility] CO2 27 21 - 32 meq/L 10/30/2023 5:58 AM [facility] Calcium 9.1 8.4 - 10.1 mg/dL 10/30/2023 5:58 AM [facility] Glucose 88 74 - 106 mg/dL 10/30/2023 5:58 AM [facility] BUN 43(H) 7 - 22 mg/dL 10/30/2023 5:58 AM [facility] Creatinine 3.35(H) 0.70 - 1.30 mg/dL 10/30/2023 5:58 AM [facility] BUN/Creatinine 13 8 - 20 10/30/2023 5:58 AM [facility] Albumin 2.6(L) 3.4 - 5.0 g/dL 10/30/2023 5:58 AM [facility] Alkaline Phosphatase 171(H) 27 - 136 U/L 10/30/2023 5:58 AM [facility] ALT 15(L) 16 - 61 U/L 10/30/2023 5:58 AM [facility] AST 34 5 - 37 U/L 10/30/2023 5:58 AM [facility] Total Bilirubin 1.1 0.2 - 1.2 mg/dL 10/30/2023 5:58 AM [facility] Protein, Total 6.5 6.4 - 8.2 gm/dL 10/30/2023 5:58 AM [facility] Anion Gap 11 9 - 20 10/30/2023 5:58 AM [facility] A/G Ratio 0.7(L) 1.1 - 2.5 10/30/2023 5:58 AM [facility] Globulin 3.9 1.5 - 4.5 g/dL 10/30/2023 5:58 AM [facility] Osmolality Calc 285.9 5:58 AM [facility] eGFR (mL/min/1.73m2) 21(L) >=60 mL/min/1.7 3m2 10/30/2023 5:58 AM [facility] Comment:ESTIMATED GFR IS NOT ACCURATE CREATININE CLEARANCE IN PREDICTING GLOMERULAR FILTRATION RATE. ESTIMATED GFR IS NOT APPLICABLE FOR DIALYSIS PATIENTS. Blood Venipuncture / Unknown 10/30/2023 4:39 AM EDT 10/30/2023 5:25 AM EDT Nohelia Deutsch DO LAB BLOOD ORDERABLES Final R esult Performing Organization Address City/[facility]/ZIP Co de Phone Number [facility] [address] [phone] * (ABNORMAL) Glucose, Nova Meter (10/29/2023 8:37 PM EDT) POC-GLUCOSE 165(H) 70 - 110 mg/dL 10/29/2023 8:37 PM EDT [facility] Comment: In the event of poor peripheral blood flow, venous or arterial blood should be used due to the potential of erroneous results. Notified Nurse RBV Marketing Strategy Manager [phone] 10/29/2023 8:37 PM EDT [facility] Blood WHOLE BLOOD / Unknown 10/29/2023 8:37 PM EDT 10/29/2023 8:37 PM EDT Narrative [facility] - 10/29/2023 8:37 PM EDT Marketing Strategy Manager ID is - [phone] Nohelia Deutsch DO POINT OF CARE TEST ORDERABLE S Final Result Performing Organization Address City/[facility] Co de Phone Number [facility] [address] [phone] * (ABNORMAL) Glucose, Nova Meter (10/29/2023 7:23 PM EDT) POC-GLUCOSE 158(H) 70 - 110 mg/dL 10/29/2023 7:25 PM EDT [facility] Comment: In the event of poor peripheral blood flow, venous or arterial blood should be used due to the potential of erroneous results. Notified Nurse RBV Marketing Strategy Manager [phone] 10/29/2023 7:25 PM EDT [facility] Blood WHOLE BLOOD / Unknown 10/29/2023 7:23 PM EDT 10/29/2023 7:25 PM EDT Narrative [facility] - 10/29/2023 7:25 PM EDT Marketing Strategy Manager ID is - [phone] Nohelia Hernandezpankaj DO POINT OF CARE TEST ORDERABLE S Final Result [facility] [address] [phone] * ECG 12 lead (10/29/2023 6:24 PM EDT) VENTRICULAR RATE EKG/MIN 84 BPM GE MUSE ATRIAL RATE (MCT) 84 BPM GE MUSE ME Interval 150 ms GE MUSE QRS-INTERVAL (MSEC) 120 ms GE MUSE QT Interval 410 ms GE MUSE QTC Interval 484 ms GE MUSE P [place] 55 degrees GE MUSE R AXIS (MCT) -9 degrees GE MUSE T Wave [place] 124 degrees GE MUSE [place] Diagnosis Normal sinus rhythm Cannot rule out Anterior infarct , age undetermined Abnormal ECG No previous ECGs available Confirmed by Kacy Montez ([id number]) on 11/05/2023 8:13:43 PM GE MUSE 10/29/2023 6:24 PM EDT 11/05/2023 8:13 PM EDT Gurinder Samayoa APRN ECG ORDERABLES Final Resul t Performing Organization Address City/[facility]/ZIP Co de Phone Number GE MUSE * Magnesium (10/29/2023 5:50 PM EDT) Magnesium 2.3 1.5 - 2.4 mg/dL 10/29/2023 6:43 PM EDT [facility] Blood Venipuncture / Unknown 10/29/2023 5:50 PM EDT 10/29/2023 5:53 PM EDT Gurinder Samayoa APRN LAB BLOOD ORDERABLES Final Result [facility] [address] [phone] * TSH with Reflex FT4 (10/29/2023 5:50 PM EDT) [facility] TSH 2.420 0.358 - 3.740 uIU/mL 10/29/2023 6:42 PM EDT [facility] Blood Venipuncture / Unknown 10/29/2023 5:50 PM EDT 10/29/2023 5:53 PM EDT Narrative [facility] - 10/29/2023 6:42 PM EDT Biotin supplements can cause clinically significant incorrect lab results. The FDA has seen an increase in the number of adverse events related to Biotin interference with lab tests. us Gurinder Samayoa APRN LAB BLOOD ORDERABLES Final Result Performing Organization Address [facility] Co de Phone Number [facility] [address] [phone] * (ABNORMAL) PROBNP (10/29/2023 5:50 PM EDT) [facility] ProBNP (pg/mL) 81,260(H) 0 - 125 pg/mL 10/29/2023 6:43 PM EDT [facility] Blood Venipuncture / Unknown 10/29/2023 5:50 PM EDT 10/29/2023 5:53 PM EDT us Nohelia Deutsch DO LAB BLOOD ORDERABLES Final R esult Performing Organization Address [facility]/ZIP Co de Phone Number [facility] [address] [phone] * (ABNORMAL) Glucose, Nova Meter (10/29/2023 4:28 PM EDT) [facility] POC-GLUCOSE 136(H) 70 - 110 mg/dL 10/29/2023 4:29 PM EDT [facility] Comment: In the event of poor peripheral blood flow, venous or arterial blood should be used due to the potential of erroneous results. Notified Nurse RBV Marketing Strategy Manager [phone] 10/29/2023 4:29 PM EDT [facility] Blood WHOLE BLOOD / Unknown 10/29/2023 4:28 PM EDT 10/29/2023 4:29 PM EDT Narrative [facility] - 10/29/2023 4:29 PM EDT Marketing Strategy Manager ID is - [id number] us Nohelia Deutsch DO POINT OF CARE TEST ORDERABLE S Final Result [facility] [address] [phone] * EKG-SCANNED (10/29/2023) Narrative 10/29/2023 Ordered by [...] Blood Sugar is less than 180 beteween 9668-7001, DO NOT give corrective insulin unless otherwise [...] Robin, JAME) 0830 (Given - Provider: Ame Lopez RN) hydrALAZINE (APRESOLINE) tablet 10 mg 10 [...] Blood Sugar is less than 180 beteween 2778-5676, DO NOT give corrective insulin unless otherwise [...] the respiratory therapy Modality? Small volume Nebulization 7294 (Given - Provider: Valentino Vogt, RETAIL SALES REPRESENTATIVE) ondansetron (ZOFRAN-ODT) disintegrating tablet 4 mg([employer] [...]
--- OUTSIDE RECORDS SUMMARY | 2024-02-24 15:28 | XMS_ITS | Encounter Summary ---
Author Organization [facility] Address [address] [place] [address] Care Team Providers Care Deputy Coroner Name Role Phone Unavailable Primary Care Provider Unavailabl e Encounter Details Date Type Department Care Team (Late st Contact Info) Description 07/20/2019 Historic Encounter [address] [address] ProviderKesha Historical Social History Tobacco [...] Associated Diagnosis Comments CBC W/ AUTO DIFF ([facility] DATA CONV) Routine 07/20/2019 2:33 PM EDT AUTOMATED DIFFERENTIAL ([facility] DATA CONV) Routine 07/20/2019 2:33 PM EDT BMP BASIC METABOLIC PANEL ([facility]KR DATA CONV) Routine 07/20/2019 2:33 PM EDT documented in this encounter Results * (ABNORMAL) BMP BASIC METABOLIC PANEL ([facility] BKR DATA CONV) (07/20/2019 2:33 PM EDT) Glucose Level 446(H) 74 - 106 mg/dL 07/21/2019 2:11 AM EDT Comment: [facility] has become aware of sulfasalazine and sulfapyridine [...] 2:33 PM EDT 07/21/2019 1:59 AM EDT [facility] Historical Provider LAB BLOOD ORDERABLES Fi nal Result [facility] [address] [place] [address], [place] [phone] * AUTOMATED DIFFERENTIAL ([facility] BKR DATA CONV) (07/20/2019 2:33 PM EDT) Neut% 55.2 34.0 - 71.0 % 07/21/2019 2:01 AM EDT Lymph% 35.2 19.3 - 53.0 % 07/21/2019 2:01 AM EDT [place]% 6.9 4.7 - 12.5 % 07/21/2019 2 :01 AM EDT Eos% 1.5 1.0 - 7.0 % 07/21/2019 2: 01 AM EDT Baso% 0.8 0.0 - 1.0 % 07/21/2019 2: 01 AM EDT IG% 0 0 - 1 % 07/21/2019 2:0 1 AM EDT Neut# 2.87 1.56 - 6.13 K/uL 07/21/2019 2:01 AM EDT Lymph# 1.83 1.18 - 3.74 K/uL 07/21/2019 2:01 AM EDT [place]# 0.36 0.24 - 0.82 K/uL 07/21/2019 2:01 AM EDT Eos# 0.08 0.04 - 0.54 K/uL 07/21/2019 2:01 AM EDT Baso# 0.04 0.01 - 0.08 K/uL 07/21/2019 2:01 AM EDT IG# 0 0 - 0 x10(3)/uL 07/21/2019 2:01 AM EDT Blood 07/20/2019 2:33 PM EDT 07/21/2019 1:57 AM EDT Narrative [facility] - 07/21/2019 2:07 AM EDT Added by Discern Expert [facility] Historical Provider LAB BLOOD ORDERABLES Fi nal Result [facility] [address] [place] [address], [place] [phone] * (ABNORMAL) CBC W/ AUTO DIFF ([facility] BKR DATA CONV) (07/20/2019 2:33 PM EDT) [...] Provider LAB BLOOD ORDERABLES Fi nal Result [facility] [address] [place] [address], [place] [phone] documented in this encounter Visit Diagnoses Not on filedocumented in this encounter
--- OUTSIDE RECORDS SUMMARY | 2024-02-24 15:28 | XMS_ITS | Encounter Summary ---
Author Organization [facility] [address] [facility] [place] [address] Care Team Providers Care Sign Language Instructor Name Role Phone Unavailable Primary Care Provider [...] living situation today? I have a [facility] place to live 10/29/2023 Think about the [...] Do you speak a language other than [place] at [facility]? No 10/29/2023 Do you want [...]
--- OUTSIDE RECORDS SUMMARY | 2024-02-24 15:29 | XMS_ITS | Encounter Summary ---
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 or to get [...] Hospital Service: Cardiology Discharge Diagnosis: Heart Failure ([facility] 02/08/2024 TCM call # 2 Patient Reached: [...] Upcoming Encounters Date Type Department Care Team ([facility] st Contact Info) Description 03/07/2024 1:40 PM EST Office Visit [facility] [address] [facility], [address] [place] [id number] Naeem Blunt MD [address] [place] [address] documented as of this encounter Visit Diagnoses Not on filedocumented in this encounter Additional Health Concerns Infection Onset Date Last Indicated Resolved Time MRSA Comment:Positive blood culture 03/03/2019 01/30/2024 Assessment Noted Time A Body Mass Index follow-up plan has been documented for the patient 02/05/2024 9:34 AM EST documented as of this encounter Care Teams Air Pollution Control Engineer Relationship Specialty Start Date End Date Pcp, No [address] [place] [address] PCP - General Family Medicine 01/30/24 Ceci Greene LPN [employer] [place] [address] TCM Nurse 02/07/24 03/08/24 documented as of this encounter
--- OUTSIDE RECORDS SUMMARY | 2024-02-24 15:29 | XMS_ITS | Clinical Summary ---
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 100 each 3 02/05/20 Active mometasone-for moterol (Dulera 100) 100-5 MCG/ACT inhaler Inhale 2 puffs 2 (two) times a day. Rinse mouth with water after use to reduce aftertaste and incidence of candidiasis. Do not swallow. 39 g 3 02/05/20 24 025 Active Umeclidinium Staples (Incruse Ellipta) 62.5 MCG/ACT aerosol powder Inhale [...] day. 30 tablet 11 02/13/20 23 Umeclidinium Staples (Incruse Ellipta) 62.5 MCG/ACT aerosol powder Inhale [...] failure 12/17/2023 Coronary artery disease invo [place] coronary artery of creek heart without angina pectoris 09/29/2023 Cardiomyopathy, ischemic [...] AM EST Emergency [facility] Emergency Department [address] [place] [phone] Jakob Phipps MD Anxiety about health (Primary Dx); COPD without exacerbation (CMS/HCC); Uncontrolled type 2 diabetes mellitus with hyperglycemia (CMS/HCC) Discharge Disposition: Home or Self Care 02/20/2024 Travel 02/09/2024 [place] [address] Ceci Greene LPN TCM Call 02/08/2024 [place] [address] Ceci Greene REGULATORY AFFAIRS MANAGER TCM Call 02/07/2024 Patient Outreach POPULATION [address] [phone] Ceci Greene REGULATORY AFFAIRS MANAGER TCM Call 02/01/2024 Travel 01/30/2024 8:34 AM EST - 02/05/2024 10:23 AM EST Hospital Encounter [facility] Inpatient [address] [place] [phone] Carmencita Slaughter MD McClure, Rick R, MD Sorour, Nouran A, MD Acute on chronic systolic congestive heart failure (CMS/HCC) (Primary Dx); Acute decompensated heart failure (CMS/HCC) Discharge Disposition: Home or Self Care 01/30/2024 Travel 12/28/2023 Telephone [facility] A Inpatient [address] [place] [address] Laura Singleton 12/20/2023 Travel 12/17/2023 Travel 12/16/2023 5:50 PM EDT - 12/25/2023 2:06 PM EDT Hospital Encounter P[facility] H Inpatient [address] [place] [phone] Carmencita Slaughter MD Prabhu, MD Srinivasan Apodaca John R, MD Sheets, Jonny Gamboa MD Acute on chronic systolic congestive heart failure (CMS/HCC) (Primary Dx); Acute decompensated heart failure ([facility]/HCC) Discharge Disposition: Home or Self Care 12/16/2023 Orders Only External Location [address] [place] [phone] Provider, External 12/16/2023 Travel from Last 3 [...] place to sleep or slept in a penitentiary (including now)? No 02/01/2024 CAGE ASSESSMENT Answer [...] drink first t erin in the morning ([employer]) to steady your nerves or to get [...] Description 03/07/2024 1:40 PM EST Office Visit [facility] [place] [address] [facility], [address] [place] [address] Naeem Blunt MD [address] [place] [address] Health Maintenance Due Date Last [...] 2 - Risk 2-dose series) 01/06/2019 07/07/2018 [id number] Vaccine (2 - Aston risk series) 09/07/2020 [...] UNSOLICITED RESULTS Routine 12/16/2023 6:00 PM EDT [facility] ED POCUS PROCDOC Routine 12/16/2023 5:49 [...] Hold for add-ons 02/20/2024 7:01 AM EST [facility] Comment:Auto resulted. Blood Venous blood specimen / Unknown 02/20/2024 4:29 AM EST 02/20/2024 4:29 AM EST us Jakob Phipps MD LAB BLOOD ORDERABLES Final Re sult [facility] [address] [place] [address] * (ABNORMAL) CBC w/diff (02/20/2024 4:15 AM EST) Only the most recent of11 resultswithin the time period is included. WBC Count 4.44 3.70 - 10.30 10*3/uL LAB HEMATOLOGY METHOD 02/20/2024 4:30 AM EST [facility] RBC Count 4.85 4.60 - 6.10 10*6/uL LAB HEMATOLOGY METHOD 02/20/2024 4:30 AM EST [facility] HGB 12.8(L) 13.7 - 17.5 g/dL LAB HEMATOLOGY METHOD 02/20/2024 4:30 AM EST [facility] HCT 41.3 40.0 - 51.0 % LAB HEMATOLOGY METHOD 02/20/2024 4:30 AM EST [facility] Platelet Count 193 155 - 369 10*3/uL LAB HEMATOLOGY METHOD 02/20/2024 4:30 AM EST [facility] MCV 85 79 - 98 fL LAB HEMATOLOGY METHOD 02/20/2024 4:30 AM EST [facility] MCH 26.4 26.0 - 32.0 pg LAB HEMATOLOGY METHOD 02/20/2024 4:30 AM EST [facility] MCHC 31.0 30.7 - 35.5 g/dL LAB HEMATOLOGY METHOD 02/20/2024 4:30 AM EST [facility] RDW 18.1(H) 11.5 - 14.5 % LAB HEMATOLOGY METHOD 02/20/2024 4:30 AM EST [facility] MPV 11.0 8.8 - 12.5 fL LAB HEMATOLOGY METHOD 02/20/2024 4:30 AM EST [facility] nRBC 0.0 <=0.0 per 100 WBCs LAB HEMATOLOGY METHOD 02/20/2024 4:30 AM EST [facility] Differential Type Automated LAB HEMATOLOGY METHOD 02/20/2024 4:30 AM EST [facility] Neutrophils % 68 % LAB HEMATOLOGY METHOD 02/20/2024 4:30 AM EST [facility] Lymphocytes % 23 % LAB HEMATOLOGY METHOD 02/20/2024 4:30 AM EST [facility] Monocytes % 7 % LAB HEMATOLOGY METHOD 02/20/2024 4:30 AM EST [facility] Eosinophils % 1 % LAB HEMATOLOGY METHOD 02/20/2024 4:30 AM EST [facility] Basophils % 1 % LAB HEMATOLOGY METHOD 02/20/2024 4:30 AM EST [facility] Immature Granulocytes % 0 % LAB HEMATOLOGY METHOD 02/20/2024 4:30 AM EST [facility] Neutrophils Absolute 3.02 1.60 - 6.10 10*3/uL LAB HEMATOLOGY METHOD 02/20/2024 4:30 AM EST [facility] Lymphocytes Absolute 1.01(L) 1.20 - 3.90 10*3/uL LAB HEMATOLOGY METHOD 02/20/2024 4:30 AM EST [facility] Monocytes Absolute 0.31 0.30 - 0.90 10*3/uL LAB HEMATOLOGY METHOD 02/20/2024 4:30 AM EST [facility] Eosinophils Absolute 0.06 0.00 - 0.50 10*3/uL LAB HEMATOLOGY METHOD 02/20/2024 4:30 AM EST [facility] Basophils Absolute 0.03 0.00 - 0.10 10*3/uL LAB HEMATOLOGY METHOD 02/20/2024 4:30 AM [facility] Immature Granulocytes Absolute 0.01 0.00 - 0.06 10*3/uL LAB HEMATOLOGY METHOD 02/20/2024 4:30 AM EST [facility] Blood Venous blood specimen / Unknown Venipuncture / Unknown 02/20/2024 4:15 AM EST 02/20/2024 4:[address] [facility] 02/20/2024 4:30 AM EST Therapeutic decision making should be based on absolute values, rather than percentages. us Jakob Phipps MD LAB BLOOD ORDERABLES Final Re sult [facility] [address] [place] [address] * (ABNORMAL) Blood gas panel, venous (02/20/2024 4:15 AM EST) Only the most recent of2 resultswithin the time period is included. pH, Venous 7.35 7.32 - 7.43 LAB HEMATOLOGY METHOD 02/20/2024 4:42 AM [facility] pCO2, Venous 50 40 - 55 mmHg LAB HEMATOLOGY METHOD 02/20/2024 4:42 AM [facility] pO2, Venous 17(L) 25 - 40 mmHg LAB HEMATOLOGY METHOD 02/20/2024 4:42 AM [facility] SO2, Measured, Venous 14(L) 65 - 80 % LAB HEMATOLOGY METHOD 02/20/2024 4:42 AM [facility] Base Excess, Venous 1.5 -2.0 - 3.0 mmol/L LAB HEMATOLOGY METHOD 02/20/2024 4:42 AM [facility] Bicarbonate, Calculated, Venous 28(H) 22 - 26 mmol/L LAB HEMATOLOGY METHOD 02/20/2024 4:42 AM [facility] Hematocrit, Whole Blood 39.7(L) 40.0 - 51.0 % LAB HEMATOLOGY METHOD 02/20/2024 4:42 AM [facility] Sodium, Whole Blood 141 136 - 145 mmol/L LAB HEMATOLOGY METHOD 02/20/2024 4:42 AM [facility] Potassium, Whole Blood 5.4(H) 3.6 - 4.9 mmol/L LAB HEMATOLOGY METHOD 02/20/2024 4:42 AM [facility] Chloride, Whole Blood 104 97 - 107 mmol/L LAB HEMATOLOGY METHOD 02/20/2024 4:42 AM [facility] Glucose, Whole Blood 186(H) 74 - 99 mg/dL LAB HEMATOLOGY METHOD 02/20/2024 4:42 AM [facility] Lactate, Venous, Whole Blood 1.2 0.5 - 2.2 mmol/L LAB HEMATOLOGY METHOD 02/20/2024 4:42 AM [facility] Ionized Calcium, Whole Blood 4.7 4.6 - 5.1 mg/dL LAB HEMATOLOGY METHOD 02/20/2024 4:42 AM [facility] Blood Venous blood specimen / Unknown Venipuncture / Unknown 02/20/2024 4:15 AM EST 02/20/2024 4:40 AM EST us Jakob Phipps MD LAB BLOOD ORDERABLES Final Re sult [facility] [address] [place] [address] * (ABNORMAL) BMP (02/20/2024 4:15 AM EST) Only the most recent of20 resultswithin the time period is included. Glucose, Plasma 190(H) 74 - 99 mg/dL 02/20/2024 5:08 AM EST [facility] BUN, Plasma 44(H) 7 - 21 mg/dL 02/20/2024 5:08 AM EST [facility] Creatinine, Plasma 2.93(H) 0.70 - 1.20 mg/dL 02/20/2024 5:08 AM EST [facility] BUN/Creatinine Ratio 15 02/20/2024 5:08 AM EST [facility] Sodium, Plasma 138 136 - 145 mmol/L 02/20/2024 5:08 AM EST [facility] Potassium, Plasma 5.6(H) 3.6 - 4.9 mmol/L 02/20/2024 5:08 AM EST [facility] Chloride, Plasma 102 97 - 107 mmol/L 02/20/2024 5:08 AM EST [facility] CO2, Plasma 25 22 - 29 mmol/L 02/20/2024 5:08 AM EST [facility] Anion Gap 11 6 - 16 mmol/L 02/20/2024 5:08 AM EST [facility] Total Calcium, Plasma 9.2 8.9 - 10.2 mg/dL 02/20/2024 5:08 AM EST [facility] eGFRcr 24.3 mL/min/1.7 3m*2 02/20/2024 5:08 AM EST [facility] Comment:Reported eGFRcr in m L/min/1.73m2 is based the CKD-EPI 2020 equation that does not use a race coefficient. Blood Venous blood specimen / Unknown Venipuncture / Unknown 02/20/2024 4:15 AM EST 02/20/2024 4:39 AM EST Jakob Phipps MD LAB BLOOD ORDERABLES Final Re sult [facility] [address] [place] [address] * ECG Adult (02/20/2024 3:15 AM EST) Only the most recent of5 resultswithin the time period is included. EKG DIAGNOSIS CLASS Abnormal MUSE ECG Ventricular Rate 93 BPM MUSE ECG Atrial Rate 93 BPM MUSE ECG [place] Interval 160 ms MUSE ECG QRSD Interval 116 ms MUSE ECG QT Interval 386 ms MUSE ECG QTC Interval 479 ms MUSE ECG P [place] 48 degrees MUSE ECG R [place] -28 degrees MUSE ECG T Wave [place] 123 degrees MUSE ECG Diagnosis Normal sinus [...] ECG ORDERABLES Final Result Performing Organization Address [facility] Co de Phone Number MUSE ECG * (ABNORMAL) POCT glucose meter (02/05/2024 8:27 AM EST) Only the most recent of63 resultswithin the time period is included. Pathologist [facility] POCT Glucose 152(H) 74 - 99 mg/dL 02/05/2024 8:28 AM EST [facility] Comment:Accuracy of a glucos e result [...] 02/05/2024 8:28 AM EST [facility] Turkey Roll Maker ID Jose J Yumi 8:28 AM EST [facility] Device ID [id number] 02/05/2024 8:28 AM EST HEALTHCARE LAB Specimen Type POC Capillary 02/05/2024 8:28 AM EST [facility] Blood Capillary blood specimen / Unknown 02/05/2024 8:27 AM EST 02/05/2024 8:28 AM EST Dustin Barakat MD LAB POINT OF CARE TE ST DOCKED DEVICE UNSOLICITED RESULTS Final Result [facility] [address] [place] [address] * (ABNORMAL) CBC W/O Differential (02/05/2024 3:55 AM EST) Only the most recent of2 resultswithin the time period is included. WBC Count 4.07 3.70 - 10.30 10*3/uL LAB HEMATOLOGY METHOD 02/05/2024 4:35 AM EST [facility] RBC Count 4.16(L) 4.60 - 6.10 10*6/uL LAB HEMATOLOGY METHOD 02/05/2024 4:35 AM EST [facility] HGB 11.0(L) 13.7 - 17.5 g/dL LAB HEMATOLOGY METHOD 02/05/2024 4:35 AM EST [facility] HCT 34.8(L) 40.0 - 51.0 % LAB HEMATOLOGY METHOD 02/05/2024 4:35 AM EST [facility] Platelet Count 200 155 - 369 10*3/uL LAB HEMATOLOGY METHOD 02/05/2024 4:35 AM EST [facility] MCV 84 79 - 98 fL LAB HEMATOLOGY METHOD 02/05/2024 4:35 AM EST [facility] MCH 26.4 26.0 - 32.0 pg LAB HEMATOLOGY METHOD 02/05/2024 4:35 AM EST [facility] MCHC 31.6 30.7 - 35.5 g/dL LAB HEMATOLOGY METHOD 02/05/2024 4:35 AM EST [facility] RDW 19.7(H) 11.5 - 14.5 % LAB HEMATOLOGY METHOD 02/05/2024 4:35 AM EST [facility] MPV 10.6 8.8 - 12.5 fL LAB HEMATOLOGY METHOD 02/05/2024 4:35 AM EST [facility] nRBC 0.0 <=0.0 per 100 WBCs LAB HEMATOLOGY METHOD 02/05/2024 4:35 AM EST [facility] Blood Venous blood specimen / Unknown Venipuncture / Unknown 02/05/2024 3:55 AM EST 02/05/2024 4:27 AM EST us Dustin Barakat MD LAB BLOOD ORDERABLES Final Re sult [facility] [address] [place] [address] * (ABNORMAL) Magnesium (02/05/2024 3:55 AM EST) Only the most recent of15 resultswithin the time period is included. Magnesium, Plasma 2.5(H) 1.9 - 2.4 mg/dL 02/05/2024 4:52 AM EST [facility] Blood Venous blood specimen / Unknown Venipuncture / Unknown 02/05/2024 3:55 AM EST 02/05/2024 4:23 AM EST us Dustin Barakat MD LAB BLOOD ORDERABLES Final Re sult Performing Organization Address [facility] Co de Phone Number [facility] [address] [place] [address] * Lavender Top (02/04/2024 3:47 AM EST) Only the most recent of3 resultswithin the time period is included. Extra Hold for add-ons 02/04/2024 7:01 AM EST [facility] Comment:Auto resulted. Blood Venous blood specimen / Unknown 02/04/2024 3:47 AM EST 02/04/2024 4:39 AM EST us Dustin Barakat MD LAB BLOOD ORDERABLES Final Re sult Performing Organization Address City/[facility]/ZIP Co de Phone Number [facility] [address] [place] [address] * Aspartate Aminotransferase, Plasma (02/03/2024 2:26 AM EST) AST, Plasma 35 10 - 50 U/L 02/03/2024 9:01 AM EST [facility] Blood Venous blood specimen / Unknown Venipuncture / Unknown 02/03/2024 2:26 AM EST 02/03/2024 2:37 AM EST Dustin Barakat MD LAB BLOOD ORDERABLES Final Re sult [facility] [address] [place] [address] * Alanine Aminotransferase, Plasma (02/03/2024 2:26 AM EST) ALT, Plasma 23 10 - 50 U/L 02/03/2024 9:01 AM EST [facility] Blood Venous blood specimen / Unknown Venipuncture / Unknown 02/03/2024 2:26 AM EST 02/03/2024 2:37 AM EST Dustin Barakat MD LAB BLOOD ORDERABLES Final Re sult Performing Organization Address City/[facility]/[place] [address] * (ABNORMAL) Alkaline Phosphatase (02/03/2024 2:26 AM EST) Alkaline Phosphatase, Plasma 317(H) 40 - 115 U/L 02/03/2024 9:01 AM EST [facility] Blood Venous blood specimen / Unknown Venipuncture / Unknown 02/03/2024 2:26 AM EST 02/03/2024 2:37 AM EST Dustin Barakat MD LAB BLOOD ORDERABLES Final Re sult Performing Organization Address City/[facility]/ZIP Co de Phone Number [address] [address] * Bilirubin, total (02/03/2024 2:26 AM EST) Total Bilirubin, Plasma 0.8 0.2 - 1.1 mg/dL 02/03/2024 9:01 AM EST [facility] Blood Venous blood specimen / Unknown Venipuncture / Unknown 02/03/2024 2:26 AM EST 02/03/2024 2:37 AM EST us Dustin Barakat MD LAB BLOOD ORDERABLES Final Re sult [facility] [address] [place] [address] * VAS US Venous Duplex Lower Extremity [...] 74 - 99 mg/dL 02/01/2024 5:33 AM [facility] BUN, Plasma 53(H) 7 - 21 mg/dL 02/01/2024 5:33 AM EST [facility] Creatinine, Plasma 2.75(H) 0.70 - 1.20 mg/dL 02/01/2024 5:33 AM EST [facility] BUN/Creatinine Ratio 19 02/01/2024 5:33 AM EST [facility] Sodium, Plasma 138 136 - 145 mmol/L 02/01/2024 5:33 AM [facility] Potassium, Plasma 4.3 3.6 - 4.9 mmol/L 02/01/2024 5:33 AM EST [facility] Chloride, Plasma 99 97 - 107 mmol/L 02/01/2024 5:33 AM EST [facility] CO2, Plasma 26 22 - 29 mmol/L 02/01/2024 5:33 AM EST [facility] Anion Gap 13 6 - 16 mmol/L 02/01/2024 5:33 AM [facility] Total Calcium, Plasma 9.1 8.9 - 10.2 mg/dL 02/01/2024 5:33 AM EST [facility] Total Protein 6.4 6.3 - 7.9 g/dL 02/01/2024 5:33 AM EST [facility] Albumin, Plasma 3.3(L) 3.5 - 5.2 g/dL 02/01/2024 5:33 AM EST [facility] AST, Plasma 39 10 - 50 U/L 02/01/2024 5:33 AM EST [facility] ALT, Plasma 26 10 - 50 U/L 02/01/2024 5:33 AM EST [facility] Alkaline Phosphatase, Plasma 331(H) 40 - 115 U/L 02/01/2024 5:33 AM EST [facility] Total Bilirubin, Plasma 1.0 0.2 - 1.1 mg/dL 02/01/2024 5:33 AM EST [facility] eGFRcr 26.2 mL/min/1.7 3m*2 02/01/2024 5:33 AM EST [facility] Comment:Reported eGFRcr in m L/min/1.73m2 is based the CKD-EPI 2020 equation that does not use a race coefficient. Blood Venous blood specimen / Unknown Venipuncture / Unknown 02/01/2024 4:55 AM EST 02/01/2024 5:05 AM EST us Darrin iMtchell MD LAB BLOOD ORDERABLES Final Res ult [facility] [address] [place] [address] * (ABNORMAL) Troponin T, High Sensitivity, 2 Hour, Plasma (01/30/2024 1:20 PM EST) Only the most recent of2 resultswithin the time period is included. Troponin T, High Sensitivity, 2 Hour 65(H) <19 ng/L 01/30/2024 2:24 PM EST [facility] Troponin Delta 6 <10 ng/L 01/30/2024 2:24 PM EST [facility] Troponin Delta Interpretation Not Significant 01/30/2024 2:24 PM EST [facility] Comment:Not Significant. No acute change in troponin observed between the baseline and 2 hour samples. Blood Venous blood specimen / Unknown Venipuncture / Unknown 01/30/2024 1:20 PM EST 01/30/2024 1:32 PM EST us Carmencita Slaughter MD LAB BLOOD ORDERABLES Final Res ult Performing Organization Address [facility] Co de Phone Number [facility] [address] [place] [address] * (ABNORMAL) Multi Drug Resistance Test (01/30/2024 12:32 PM EST) Only the most recent of2 resultswithin the time period is included. Culture Methicillin-Resist ant Staphylococcus aureus(AA) 01/31/2024 12:14 PM EST [facility] Comment:Previously isolated, still present in culture. Swab Both anterior nares / Unknown Non-blood Collection / Unknown 01/30/2024 12:32 PM EST 01/30/2024 12:57 PM EST us Darrin Mitchell MD LAB MICROBIOLOGY - GENERAL ORD ERABLES Final Result Performing Organization Address [facility] Co de Phone Number [facility] [address] [place] [address] * (ABNORMAL) Troponin now and 120 min (01/30/2024 10:32 AM EST) Only the most recent of2 resultswithin the time period is included. Troponin T, High Sensitivity, 0 Hour 71(H) <19 ng/L 01/30/2024 10:59 AM EST [facility] Blood Venous blood specimen / Unknown Venipuncture / Unknown 01/30/2024 10:32 AM EST 01/30/2024 10:34 AM EST Carmencita Slaughter MD LAB BLOOD ORDERABLES Final Res ult Performing Organization Address City/[facility] Co de Phone Number [facility] [address] [place] [address] * (ABNORMAL) Potassium (01/30/2024 10:32 AM EST) Only the most recent of2 resultswithin the time period is included. Potassium, Plasma 5.1(H) 3.6 - 4.9 mmol/L 01/30/2024 10:59 AM EST [facility] Blood Venous blood specimen / Unknown Venipuncture / Unknown 01/30/2024 10:32 AM EST 01/30/2024 10:34 AM EST Carmencita Slaughter MD LAB BLOOD ORDERABLES Final Res ult Performing Organization Address City/[facility]/ZIP Co de Phone Number [facility] [address] [place] [address] * Light Green Top (01/30/2024 9:55 AM EST) Extra Hold for add-ons 01/30/2024 12:01 PM EST [facility] Comment:Auto resulted. Blood Venous blood specimen / Unknown 01/30/2024 9:55 AM EST 01/30/2024 9:58 AM EST Carmencita Slaughter MD LAB BLOOD ORDERABLES Final Res ult Performing Organization Address [facility] de Phone Number [facility] [address] [place] [address] * XR Chest 1 View (01/30/2024 9:20 [...] Detected Not Detected 01/30/2024 10:18 AM EST [facility] Influenza A Virus PCR Result Not Detected Not Detected 01/30/2024 10:18 AM EST [facility] Influenza B Virus PCR Result Not Detected Not Detected 01/30/2024 10:18 AM EST [facility] Respiratory Syncytial Virus (RSV) PCR Result Not Detected Not Detected 01/30/2024 10:18 AM EST [facility] Swab Nasopharyngeal structure / Unknown Non-blood Collection / Unknown 01/30/2024 9:13 AM EST 01/30/2024 9:33 AM EST Narrative [facility] - 01/30/2024 10:18 AM EST This [...] ORD ERABLES Final Result Performing Organization Address City/[facility]/ZIP Co de Phone Number [facility] [address] [place] [address] * (ABNORMAL) BNP (01/30/2024 9:13 AM EST) Only the most recent of4 resultswithin the time period is included. N-Terminal, PROBNP, Plasma >70,000(H) 0 - 899 pg/mL 01/30/2024 9:53 AM EST [facility] Blood Venous blood specimen / Unknown Venipuncture / Unknown 01/30/2024 9:13 AM EST 01/30/2024 9:18 AM EST Carmencita Slaughter MD LAB BLOOD ORDERABLES Final Res ult [facility] [address] [place] [address] * (ABNORMAL) Phosphorus (12/25/2023 3:08 AM EDT) Only the most recent of8 resultswithin the time period is included. Phosphorus, Plasma 4.6(H) 2.5 - 4.5 mg/dL 12/25/2023 4:13 AM EDT [facility] Blood Venous blood specimen / Unknown Venipuncture / Unknown 12/25/2023 3:08 AM EDT 12/25/2023 3:43 AM EDT us John Mattson MD LAB BLOOD ORDERABLES Final Resu lt Performing Organization Address [facility]/ZIP Co de Phone Number [facility] [address] [place] [address] * Morphology (12/24/2023 4:31 AM EDT) Elliptocytes/O valocytes Present LAB HEMATOLOGY METHOD 12/24/2023 6:21 AM EDT [facility] RBC Morphology Slide Reviewed LAB HEMATOLOGY METHOD 12/24/2023 6:21 AM EDT [facility] Platelet Estimate Platelet smear estimate consistent with automated count LAB HEMATOLOGY METHOD 12/24/2023 6:21 AM EDT [facility] Blood Venous blood specimen / Unknown Venipuncture / Unknown 12/24/2023 4:31 AM EDT 12/24/2023 4:38 AM EDT us John Mattson MD LAB BLOOD ORDERABLES Final Resu lt Performing Organization Address City/[facility]/ZIP Co de Phone Number [facility] [address] [place] [address] * (ABNORMAL) Manual Differential (12/24/2023 4:31 AM EDT) Blasts % 0 % LAB HEMATOLOGY METHOD 12/24/2023 6:21 AM EDT [facility] Promyelocytes % 0 % LAB HEMATOLOGY METHOD 12/24/2023 6:21 AM EDT [facility] Myelocytes % 0 % LAB HEMATOLOGY METHOD 12/24/2023 6:21 AM EDT [facility] Metamyelocytes % 0 % LAB HEMATOLOGY METHOD 12/24/2023 6:21 AM EDT [facility] Neutrophils % 72 % LAB HEMATOLOGY METHOD 12/24/2023 6:21 AM EDT [facility] Lymphocytes % 18 % LAB HEMATOLOGY METHOD 12/24/2023 6:21 AM EDT [facility] Reactive Lymphocytes % 3 % LAB HEMATOLOGY METHOD 12/24/2023 6:21 AM EDT [facility] Monocytes % 3 % LAB HEMATOLOGY METHOD 12/24/2023 6:21 AM EDT [facility] Eosinophils % 1 % LAB HEMATOLOGY METHOD 12/24/2023 6:21 AM EDT [facility] Basophils % 3 % LAB HEMATOLOGY METHOD 12/24/2023 6:21 AM EDT [facility] Plasma Cells % LAB HEMATOLOGY METHOD 12/24/2023 6:21 AM EDT [facility] Lymphoma Cells % LAB HEMATOLOGY METHOD 12/24/2023 6:21 AM EDT [facility] Hairy Cell % LAB HEMATOLOGY METHOD 12/24/2023 6:21 AM EDT [facility] Other Cells % LAB HEMATOLOGY METHOD 12/24/2023 6:21 AM EDT [facility] Blasts Absolute 0.00 10*3/UL LAB HEMATOLOGY METHOD 12/24/2023 6:21 AM EDT [facility] Promyelocytes Absolute 0.00 10*3/uL LAB HEMATOLOGY METHOD 12/24/2023 6:21 AM EDT [facility] Myelocytes Absolute 0.00 10*3/uL LAB HEMATOLOGY METHOD 12/24/2023 6:21 AM EDT [facility] Metamyelocytes Absolute 0.00 10*3/uL LAB HEMATOLOGY METHOD 12/24/2023 6:21 AM EDT [facility] Neutrophils Absolute 3.78 1.60 - 6.10 10*3/uL LAB HEMATOLOGY METHOD 12/24/2023 6:21 AM EDT [facility] Lymphocytes Absolute 0.95(L) 1.20 - 3.90 10*3/uL LAB HEMATOLOGY METHOD 12/24/2023 6:21 AM EDT [facility] Reactive Lymphocytes Absolute 0.16 10*3/uL LAB HEMATOLOGY METHOD 12/24/2023 6:21 AM EDT [facility] Monocytes Absolute 0.16(L) 0.30 - 0.90 10*3/uL LAB HEMATOLOGY METHOD 12/24/2023 6:21 AM EDT [facility] Eosinophils Absolute 0.05 0.00 - 0.50 10*3/uL LAB HEMATOLOGY METHOD 12/24/2023 6:21 AM EDT [facility] Basophils Absolute 0.16(H) 0.00 - 0.10 10*3/uL LAB HEMATOLOGY METHOD 12/24/2023 6:21 AM EDT [facility] Plasma Cells Absolute LAB HEMATOLOGY METHOD 12/24/2023 6:21 AM EDT [facility] Lymphoma Cells Absolute LAB HEMATOLOGY METHOD 12/24/2023 6:21 AM EDT [facility] Hairy Cells Absolute LAB HEMATOLOGY METHOD 12/24/2023 6:21 AM EDT [facility] Other Cells Absolute LAB HEMATOLOGY METHOD 12/24/2023 6:21 AM EDT [facility] Blood Venous blood specimen / Unknown Venipuncture / Unknown 12/24/2023 4:31 AM EDT 12/24/2023 4:38 AM EDT us John Mattson MD LAB BLOOD ORDERABLES Final Resu lt [facility] [address] [place] [address] * ECHO, ADULT TRANSTHORACIC COMPLETE (12/20/2023 9:34 [...] mean PAP 43 mmHg WILLIAM ISCV [place](ACCEL) 44.4 mmHg WILLIAM ISCV Heart Rate 89 [...] day 5 MIKE 12/22/2023 10:01 PM EDT [facility] Blood Structure of antecubital vein / Unknown Venipuncture / Unknown 12/17/2023 9:11 PM EDT 12/17/2023 9:47 PM EDT us John Mattson MD LAB MICROBIOLOGY - GENERAL ORDE RABLES Final Result [facility] [address] [place] [address] * Ferritin (12/17/2023 9:51 AM EDT) Ferritin, Serum 131 20 - 400 ng/mL 12/17/2023 10:34 AM EDT [facility] Blood Venous blood specimen / Unknown Venipuncture / Unknown 12/17/2023 9:51 AM EDT 12/17/2023 9:59 AM EDT us John Mattson MD LAB BLOOD ORDERABLES Final Resu lt Performing Organization Address [facility]/ZIP Co de Phone Number [facility] [address] [place] [address] * US Abdomen Doppler Limited (12/17/2023 8:31 [...] the final edited report. Drafted by Kane Alvarenag DO on 12/17/2023 8:37 AM Final report [...] on 12/17/2023 8:42 AM John Mattson MD [facility] US PROCEDURES Final Result * Protein, Random, Urine with Creatinine (12/17/2023 6:18 AM EDT) Protein, Urine 116 mg/dL 12/17/2023 7:46 AM EDT [facility] Creatinine, Urine 37 mg/dL 12/17/2023 7:46 AM EDT [facility] Protein/Creatin ine Ratio 3.1 mg/mg Creat 12/17/2023 7:46 AM EDT [facility] Urine Urine specimen obtained by clean catch procedure / Unknown Non-blood Collection / Unknown 12/17/2023 6:18 AM EDT 12/17/2023 6:22 AM EDT us John Mattson MD LAB URINE ORDERABLES Final Resu lt Performing Organization Address [facility] Co de Phone Number [facility] [address] [place] [address] * Lactate, venous (12/17/2023 5:10 AM EDT) Lactate, Venous, Whole Blood 1.0 0.5 - 2.2 mmol/L LAB HEMATOLOGY METHOD 12/17/2023 5:19 AM EDT [facility] Blood Venous blood specimen / Unknown Venipuncture / Unknown 12/17/2023 5:10 AM EDT 12/17/2023 5:18 AM EDT John Mattson MD LAB BLOOD ORDERABLES Final Resu lt Performing Organization Address [facility] Co de Phone Number [facility] [address] [place] [address] * APTT (12/17/2023 4:00 AM EDT) aPTT 30 25 - 35 sec 12/17/2023 4:16 AM EDT [facility] Blood Venous blood specimen / Unknown Venipuncture / Unknown 12/17/2023 4:00 AM EDT 12/17/2023 4:02 AM EDT Result [facility] us John Mattson MD LAB BLOOD ORDERABLES Final Resu lt Performing Organization Address [facility] Co de Phone Number [facility] [address] [place] [address] * (ABNORMAL) Protime-INR (12/17/2023 4:00 AM EDT) Prothrombin Time 15.3(H) 12.0 - 14.3 sec 12/17/2023 4:16 AM EDT [facility] INR 1.2(H) 0.9 - 1.1 12/17/2023 4:16 AM EDT [facility] Blood Venous blood specimen / Unknown Venipuncture / Unknown 12/17/2023 4:00 AM EDT 12/17/2023 4:02 AM EDT [facility] - 12/17/2023 4:16 AM EDT OPTIMAL INR RANGES FOR PATIENT ON ORAL ANTICOAGULANT THERAPY Prevention of venous thromboembolism ?INR 2.0 to 3.0 In patients with heart disease: Atrial fibrillation ?INR 2.0 to 3.0 Valvular heart disease ? INR 2.0 to 3.0 Tissue heart valves ?INR 2.0 to 3.0 Mechanical prosthetic valves ? INR 2.5 to 3.5 Prevention of recurrent SD ? INR 2.5 to 3.5 us John Mattson MD LAB BLOOD ORDERABLES Final Resu lt [facility] [address] [place] [address] * SARS CoV-2/COVID-19 by PCR (12/17/2023 1:47 AM EDT) SARS CoV-2/COVID-1 9 RNA PCR Result Not Detected Not Detected 12/17/2023 2:54 AM EDT [facility] Swab Nasopharyngeal structure / Unknown Non-blood Collection / Unknown 12/17/2023 1:47 AM EDT 12/17/2023 2:10 AM EDT [facility] - 12/17/2023 2:54 AM EDT [...] Mattson MD LAB MICROBIOLOGY - GENERAL ORDE [facility] Final Result Performing Organization Address [facility] Phone Number [facility] [address] [place] [address] * (ABNORMAL) Iron & Total Iron Binding Capacity, Plasma (Includes Transferrin) (12/17/2023 1:47 AM EDT) Iron, Plasma 23(L) 50 - 170 ug/dL 12/17/2023 10:51 AM EDT [facility] Transferrin, Plasma 202 200 - 360 mg/dL 12/17/2023 10:51 AM EDT [facility] Total Iron Binding Capacity, Plasma 253 240 - 450 ug/mL 12/17/2023 10:51 AM EDT [facility] Transferrin Saturation 9(L) 14 - 50 % 12/17/2023 10:51 AM EDT [facility] Blood Venous blood specimen / Unknown Venipuncture / Unknown 12/17/2023 1:47 AM EDT 12/17/2023 1:57 AM EDT John Mattson MD LAB BLOOD ORDERABLES Final Resu lt Performing Organization Address [facility] de Phone Number [facility] [address] [place] [address] * (ABNORMAL) Urinalysis, manual only (12/17/2023 1:47 AM EDT) Color, Urine Yellow LAB URINALYSIS - AUTOMATED METHOD 12/17/2023 1:53 AM EDT [facility] Clarity, Urine Clear LAB URINALYSIS - AUTOMATED METHOD 12/17/2023 1:53 AM EDT [facility] Spec L[place], Urine 1.020 1.005 - 1.030 LAB URINALYSIS - AUTOMATED METHOD 12/17/2023 1:53 AM EDT [facility] pH, Urine 5.5 4.5 to 8 LAB URINALYSIS - AUTOMATED METHOD 12/17/2023 1:53 AM EDT [facility] Protein, Urine >=300(A) Negative mg/dL LAB URINALYSIS - AUTOMATED METHOD 12/17/2023 1:53 AM EDT [facility] Glucose, Urine 500(A) Negative mg/dL LAB URINALYSIS - AUTOMATED METHOD 12/17/2023 1:53 AM EDT [facility] Ketones, Urine Negative Negative mg/dL LAB URINALYSIS - AUTOMATED METHOD 12/17/2023 1:53 AM EDT [facility] Blood, Urine Small(A) Negative LAB URINALYSIS - AUTOMATED METHOD 12/17/2023 1:53 AM EDT [facility] Bilirubin, Urine Negative Negative LAB URINALYSIS - AUTOMATED METHOD 12/17/2023 1:53 AM EDT [facility] Urobilinogen, Urine 0.2 0.2 to 1.0 mg/dL LAB URINALYSIS - AUTOMATED METHOD 12/17/2023 1:53 AM EDT [facility] Leukocytes, Urine Negative Negative LAB URINALYSIS - AUTOMATED METHOD 12/17/2023 1:53 AM EDT [facility] Nitrite, Urine Negative Negative LAB URINALYSIS - AUTOMATED METHOD 12/17/2023 1:53 AM EDT [facility] Urine Urine specimen obtained by clean catch procedure / Unknown Non-blood Collection / Unknown 12/17/2023 1:47 AM EDT 12/17/2023 1:50 AM EDT us John Mattson MD LAB URINE ORDERABLES Final Resu lt [facility] [address] [place] [address] * (ABNORMAL) Hemoglobin A1c (12/17/2023 1:47 AM EDT) Hemoglobin A1c 8.0(H) <5.7 % 12/17/2023 9:23 AM EDT [facility] Blood Venous blood specimen / Unknown Venipuncture / Unknown 12/17/2023 1:47 AM EDT 12/17/2023 1:50 AM EDT Narrative [facility] - 12/17/2023 9:23 AM EDT HA1C Interpretive Data: Diagnosis of Diabetes: Diabetic > or = 6.5% Pre-diabetic 5.7 to 6.4% Non-diabetic < or = 5.6% Glycemic Targets for Type I and Type II Diabetics: Non- Adults <7.0% Adults <6.0% Children and Adolescents <7.5% Source: ??[place] [employer]. Standards of medical care in diabetes,2017. Diabetes Care.2017:40 (suppl 1):S1-S135. HbA1c assay performed by an ion-exchange chromatography method that is certified traceable to the DCCT. us John Mattson MD LAB BLOOD ORDERABLES Final Resu lt [facility] [address] [place] [address] * Lipid panel (12/17/2023 1:47 AM EDT) Cholesterol, Plasma 136 <200 mg/dL 12/17/2023 1:36 PM EDT [facility] Comment: Cholesterol Reference Range (age >17 years): Desirable ? <200 mg/dL Borderline ? 200 to 239 mg/dL Undesirable ? >239 mg/dL HDL 51 >=40 mg/dL 12/17/2023 1:36 PM EDT [facility] Comment: HDL Cholesterol Reference Ranges (age >17 years): Female, acceptable ?? > or = 50 mg/dL Male, acceptable ? > or = 40 mg/dL Triglycerides, Plasma 112 <150 mg/dL 12/17/2023 1:36 PM EDT [facility] Comment: Triglyceride Reference Range (age >17 years): Desirable: ??<150 mg/dL Borderline high: ??150 to 199 mg/dL High: ??200 to 499 mg/dL Very high: ??>499 mg/dL Increased risk of pancreatitis: ??>1000 mg/dL Cholesterol/HDL Ratio 3 12/17/2023 1:36 PM EDT [facility] LDL, Calculated 65 <100 mg/dL 1:36 PM EDT [facility] Comment: LDL Cholesterol Reference Range (age [...] 12 hours? Unknown 12/17/2023 1:36 PM EDT [facility] Blood Venous blood specimen / Unknown Venipuncture / Unknown 12/17/2023 1:47 AM EDT 12/17/2023 1:57 AM EDT us John Mattson MD LAB BLOOD ORDERABLES Final Resu lt [facility] [address] [place] [address] * (ABNORMAL) Bacterial ID Gram Positive (12/17/2023 1:36 AM EDT) Pathologist [facility] Staphylococcus Result Detected( A) Not Detected 12/17/2023 10:00 PM EDT [facility] Comment:Assess if contaminan t or clinically relevant pathogen. Consider clinical stability and immune status of patient. Staphylococcus epidermidis Result Detected( A) Not Detected 12/17/2023 10:00 PM EDT [facility] Comment:Assess if contaminan t or clinically relevant pathogen. Consider clinical stability and immune status of patient. MECA Result Detected( A) Not Detected 12/17/2023 10:00 PM EDT [facility] Blood Structure of antecubital vein / Unknown Venipuncture / Unknown 12/17/2023 1:36 AM EDT 12/17/2023 2:09 AM EDT Narrative [facility] - 12/17/2023 10:00 PM EDT Analytes [...] OSEAS ALLEN Final Result Performing Organization Address City/[facility]/ZIP Co de Phone Number [facility] [address] [place] [address] * Thyroid Stimulating Hormone, Plasma (12/16/2023 6:42 PM EDT) [facility] Thyroid Stimulating Hormone, Plasma 2.51 0.40 - 4.20 uIU/mL 12/16/2023 7:38 PM EDT [facility] Blood Venous blood specimen / Unknown Venipuncture / Unknown 12/16/2023 6:42 PM EDT 12/16/2023 6:52 PM EDT Carmencita Slaughter MD LAB BLOOD ORDERABLES Final Res ult [facility] [address] [place] [address] * Free T4, Plasma (12/16/2023 6:42 PM EDT) [facility] Free T4, Plasma 1.6 0.8 - 1.7 ng/dL 12/16/2023 8:51 PM EDT [facility] Blood Venous blood specimen / Unknown Venipuncture / Unknown 12/16/2023 6:42 PM EDT 12/16/2023 6:52 PM EDT us Carmencita Slaughter MD LAB BLOOD ORDERABLES Final Res ult [facility] [address] [place] [address] * [facility] ED POCUS PROCDOC (12/16/2023 5:49 PM [...] Final R esult [facility] [address] [place] [address] from Last 3 Months or Most Recently [...] Patient has decision-making capacity? Yes Care Teams Pneumatic Deicer Inspector Relationship Specialty Start Date End Date Pcp, No [address] [place] [address] PCP - General Family Medicine 01/30/24 Ceci Greene LPN [employer] [place] [address] TCM Nurse 02/07/24 03/08/24
--- OUTSIDE RECORDS SUMMARY | 2024-02-24 15:29 | XMS_ITS | Encounter Summary ---
Author Organization Healthcare Address [address] [place] [address] Care Team Providers Care Manager Laboratory Name Role Phone Pcp, No Primary Care Provider Unavailabl e Ceci Greene LPN Unavailable Unavailable Reason for Visit * Reason Comments TCM Call Encounter Details Date Type Department Care Team (Late st Contact Info) Description 02/07/2024 Patient Outreach POPULATION [address] [phone] Ceci Greene LPN [employer] [place] [address] TCM Call Social History Tobacco Use Types [...] slept in a snf (including now)? No 02/01/2024 CAGE ASSESSMENT Answer [...] drink first t erin in the morning (EYE-POLICE DISTRICT SWITCHBOARD OPERATOR) to steady your nerves or to [...] Hospital Service: Cardiology Discharge Diagnosis: Heart Failure ([facility]) 02/07/2024 TCM call # 1 Patient Reached: [...] Upcoming Encounters Date Type Department Care Team ([facility] st Contact Info) Description 03/07/2024 1:40 PM EST Office Visit [facility] [place] [address], [address] [place] [id number] Naeem Blunt MD [address] [place] [address] documented as of this encounter Visit Diagnoses Not on filedocumented in this encounter Additional Health Concerns Infection Onset Date Last Indicated Resolved Time MRSA Comment:Positive blood culture 03/03/2019 01/30/2024 Assessment Noted Time A Body Mass Index follow-up plan has been documented for the patient 02/05/2024 9:34 AM EST documented as of this encounter Care Teams Manager Laboratory Relationship Specialty Start Date End Date Pcp, No [address] [place] [address] PCP - General Family Medicine 01/30/24 Ceci Greene LPN [employer] [place] [address] TCM Nurse 02/07/24 03/08/24 documented as of this encounter
--- OUTSIDE RECORDS SUMMARY | 2024-02-24 15:29 | XMS_ITS | Encounter Summary ---
Author Organization Healthcare Address [address] [place] [address] Care Team Providers Care Oxide Furnace Tender Name Role Phone Pcp, No Primary Care Provider Unavailabl e Ceci Greene LPN Unavailable Unavailable Reason for Visit * Reason Comments TCM Call Encounter Details Date Type Department Care Team (Late st Contact Info) Description 02/09/2024 Patient Outreach POPULATION [address] [phone] Ceci Greene LPN [employer] [place] [address] TCM Call Social History Tobacco Use Types [...] place to sleep or slept in a half-way (including now)? No 02/01/2024 CAGE ASSESSMENT Answer [...] drink first t erin in the morning (EYE-COORDINATOR OF PLACEMENT) to steady your nerves or to get [...] Hospital Service: Cardiology Discharge Diagnosis: Heart Failure ([facility]) 02/09/2024 TCM call # 3 Patient Reached: [...] Description 03/07/2024 1:40 PM EST Office Visit [facility] [place] [address], [address] [place] [phone] Naeem Blunt MD [address] [place] [address] documented as of this encounter Visit Diagnoses Not on filedocumented in this encounter Additional Health Concerns Infection Onset Date Last Indicated Resolved Time MRSA Comment:Positive blood culture 03/03/2019 01/30/2024 Assessment Noted Time A Body Mass Index follow-up plan has been documented for the patient 02/05/2024 9:34 AM EST documented as of this encounter Care Teams Oxide Furnace Tender Relationship Specialty Start Date End Date Pcp, No [address] [place] [address] PCP - General Family Medicine 01/30/24 Ceci Greene LPN [employer] [place] [place] [address] TCM Nurse 02/07/24 03/08/24 documented as of this encounter
--- OUTSIDE RECORDS SUMMARY | 2024-02-24 15:29 | XMS_ITS | Encounter Summary ---
Author Organization Healthcare Address [address] [id number] Care Team Providers Care Editor Managing Newspaper Name Role Phone Pcp, No Primary Care Provider Ceci Pereira LPN Unavailable Unavailable Reason for Visit * Reason Comments Shortness of Breath Encounter Details Date Type Department Care Team ([facility] st Contact Info) Description 02/20/2024 2:58 AM EST - 02/20/2024 6:35 AM EST Emergency PAV A Emergency Department [address] [place] [address] Tawanna Phipps MD [address] [place] [address] Anxiety about health (Primary Dx); COPD without [...] slept in a prison (including now)? No 02/01/2024 CAGE ASSESSMENT Answer [...] drink first t erin in the morning (EYE-INDOOR LANDSCAPE ARCHITECT) to steady your nerves or to get rid of a hangover? 0 02/05/2023 CAGE Questionnaire Score 0 023 Utilities Answer Date Recorded In the past 12 months has th e [employer], gas, oil, or water [employer] threatened to shut off services in your [...] this encounter Discharge Instructions * Discharge Instructions* Mrai Ladd MD - 02/20/2024 5:25 AM EST [...] mL 3 02/05/2024 Insulin Pen Needle (Pen [place]) 32G X 4 MM misc Use up [...] week. 3 mL 11 02/05/2024 5 Umeclidinium [place] (Incruse Ellipta) 62.5 MCG/ACT aerosol powder Inhale [...] daylight. RN placed call to ED social work job titles for ride back to listed address [facility] [place]. SW gave RN make / model of arranged ride home andpatient wheeled to lobby per NCT to meet ride. Nell Anglin RN 02/20/24 0633 * Progress Notes - Madelyn Cheng - 02/20/2024 6:28 AM EST Case Management Note Patient Identification: Buzz Hurley Jr. 58 y.o. male CSN: [id number] Admission: 02/20/2024 2:58 AM Primary Problem: No Principal Problem: There is no principal problem currently on the Problem List.Please update the Problem List and refresh. ED SW responded to a request to assist pt with discharge transportation. Address verified as [address] [address], [place] [address]. Ride requested. Pt picked-up and taken to address. No further needs identified. Madelyn Cheng FINISH MILL OPERATOR, SIDING MECHANIC [facility] Meat Scrubber Senior Case Management Case Management Main Office Mon-Wed * Mari Palacio MD - 02/20/2024 5:24 AM EST Images from the original note were not included. [id number] Anxiety Reaction Anxiety is the feeling we [...] online chat option is also available at [email or web address] [email or web address]. You can also call Lifeline at 752-130-QJIS (915-908-5488). Lifeline is free and available 19/10. When to get medical advice Call your healthcare provider right away if any of the following occur: ?? Symptoms that don't improve or get worse, such as feelings of hopelessness or overwhelming sadness ?? Severe headache not eased by rest and mild pain medicine The National Suicide Prevention Lifeline is available at 696-509-KBGO ([phone]). The Lifeline is available 19/10 and provides free and confidential support. The Lifeline also has an online chat at www.[email or web address] [email or web address]. Last Reviewed Date: 2021 00:00:00 ?? [phone] The [employer]. All rights reserved. This information is not [...] OF STENT N/A Cath Stent Placement from [employer] CHOLECYSTECTOMY N/A Cholecystectomy from [facility] Family History Problem Relation Name Age of [...] gas panel, venous STAT Final result MARI ALDD 02/20/24 0341 CBC w/diff STAT Final result [...] EST Office Visit [facility] [place] [address], [address] [place] [address] Naeem Blunt MD [address] [place] [address] documented as of this encounter [...] Hold for add-ons 02/20/2024 7:01 AM EST [facility] Comment:Auto resulted. Blood Venous blood specimen / Unknown 02/20/2024 4:29 AM EST 02/20/2024 4:29 AM EST us Tawanna Phipps MD LAB BLOOD ORDERABLES Final Re sult [facility] [address] [place] [address] * (ABNORMAL) BMP (02/20/2024 4:15 AM EST) Glucose, Plasma 190(H) 74 - 99 mg/dL 02/20/2024 5:08 AM EST [facility] BUN, Plasma 44(H) 7 - 21 mg/dL 02/20/2024 5:08 AM EST [facility] Creatinine, Plasma 2.93(H) 0.70 - 1.20 mg/dL 02/20/2024 5:08 AM EST [facility] BUN/Creatinine Ratio 15 02/20/2024 5:08 AM EST [facility] Sodium, Plasma 138 136 - 145 mmol/L 02/20/2024 5:08 AM EST [facility] Potassium, Plasma 5.6(H) 3.6 - 4.9 mmol/L 02/20/2024 5:08 AM EST [facility] Chloride, Plasma 102 97 - 107 mmol/L 02/20/2024 5:08 AM EST [facility] CO2, Plasma 25 22 - 29 mmol/L 02/20/2024 5:08 AM EST [facility] Anion Gap 11 6 - 16 mmol/L 02/20/2024 5:08 AM EST [facility] Total Calcium, Plasma 9.2 8.9 - 10.2 mg/dL 02/20/2024 5:08 AM EST [facility] eGFRcr 24.3 mL/min/1.7 3m*2 02/20/2024 5:08 AM EST [facility] Comment:Reported eGFRcr in m L/min/1.73m2 is based the CKD-EPI 2020 equation that does not use a race coefficient. Blood Venous blood specimen / Unknown Venipuncture / Unknown 02/20/2024 4:15 AM EST 02/20/2024 4:39 AM EST us Tawanna Phipps MD LAB BLOOD ORDERABLES Final Re sult [facility] [address] [place] [address] * (ABNORMAL) CBC w/diff (02/20/2024 4:15 AM EST) WBC Count 4.44 3.70 - 10.30 10*3/uL LAB HEMATOLOGY METHOD 02/20/2024 4:30 AM EST [facility] RBC Count 4.85 4.60 - 6.10 10*6/uL LAB HEMATOLOGY METHOD 02/20/2024 4:30 AM EST [facility] HGB 12.8(L) 13.7 - 17.5 g/dL LAB HEMATOLOGY METHOD 02/20/2024 4:30 AM EST [facility] HCT 41.3 40.0 - 51.0 % LAB HEMATOLOGY METHOD 02/20/2024 4:30 AM [facility] Platelet Count 193 155 - 369 10*3/uL LAB HEMATOLOGY METHOD 02/20/2024 4:30 AM EST [facility] MCV 85 79 - 98 fL LAB HEMATOLOGY METHOD 02/20/2024 4:30 AM EST [facility] MCH 26.4 26.0 - 32.0 pg LAB HEMATOLOGY METHOD 02/20/2024 4:30 AM EST [facility] MCHC 31.0 30.7 - 35.5 g/dL LAB HEMATOLOGY METHOD 02/20/2024 4:30 AM [facility] RDW 18.1(H) 11.5 - 14.5 % LAB HEMATOLOGY METHOD 02/20/2024 4:30 AM EST [facility] MPV 11.0 8.8 - 12.5 fL LAB HEMATOLOGY METHOD 02/20/2024 4:30 AM [facility] nRBC 0.0 <=0.0 per 100 WBCs LAB HEMATOLOGY METHOD 02/20/2024 4:30 AM [facility] Differential Type Automated LAB HEMATOLOGY METHOD 02/20/2024 4:30 AM [facility] Neutrophils % 68 % LAB HEMATOLOGY METHOD 02/20/2024 4:30 AM [facility] Lymphocytes % 23 % LAB HEMATOLOGY METHOD 02/20/2024 4:30 AM [facility] Monocytes % 7 % LAB HEMATOLOGY METHOD 02/20/2024 4:30 AM [facility] Eosinophils % 1 % LAB HEMATOLOGY METHOD 02/20/2024 4:30 AM [facility] Basophils % 1 % LAB HEMATOLOGY METHOD 02/20/2024 4:30 AM [facility] Immature Granulocytes % 0 % LAB HEMATOLOGY METHOD 02/20/2024 4:30 AM [facility] Neutrophils Absolute 3.02 1.60 - 6.10 10*3/uL LAB HEMATOLOGY METHOD 02/20/2024 4:30 AM [facility] Lymphocytes Absolute 1.01(L) 1.20 - 3.90 10*3/uL LAB HEMATOLOGY METHOD 02/20/2024 4:30 AM EST [facility] Monocytes Absolute 0.31 0.30 - 0.90 10*3/uL LAB HEMATOLOGY METHOD 02/20/2024 4:30 AM EST [facility] Eosinophils Absolute 0.06 0.00 - 0.50 10*3/uL LAB HEMATOLOGY METHOD 02/20/2024 4:30 AM EST [facility] Basophils Absolute 0.03 0.00 - 0.10 10*3/uL LAB HEMATOLOGY METHOD 02/20/2024 4:30 AM EST [facility] Immature Granulocytes Absolute 0.01 0.00 - 0.06 10*3/uL LAB HEMATOLOGY METHOD 02/20/2024 4:30 AM EST [facility] Blood Venous blood specimen / Unknown Venipuncture / Unknown 02/20/2024 4:15 AM EST 02/20/2024 4:28 AM EST Narrative [facility] - 02/20/2024 4:30 AM EST Therapeutic decision making should be based on absolute values, rather than percentages. us Tawanna Phipps MD LAB BLOOD ORDERABLES Final Re sult [facility] [address] [place] [address] * (ABNORMAL) Blood gas panel, venous (02/20/2024 4:15 AM EST) pH, Venous 7.35 7.32 - 7.43 LAB HEMATOLOGY METHOD 02/20/2024 4:42 AM EST [facility] pCO2, Venous 50 40 - 55 mmHg LAB HEMATOLOGY METHOD 02/20/2024 4:42 AM EST [facility] pO2, Venous 17(L) 25 - 40 mmHg LAB HEMATOLOGY METHOD 02/20/2024 4:42 AM EST [facility] SO2, Measured, Venous 14(L) 65 - 80 % LAB HEMATOLOGY METHOD 02/20/2024 4:42 AM EST [facility] Base Excess, Venous 1.5 -2.0 - 3.0 mmol/L LAB HEMATOLOGY METHOD 02/20/2024 4:42 AM EST [facility] Bicarbonate, Calculated, Venous 28(H) 22 - 26 mmol/L LAB HEMATOLOGY METHOD 02/20/2024 4:42 AM EST [facility] Hematocrit, Whole Blood 39.7(L) 40.0 - 51.0 % LAB HEMATOLOGY METHOD 02/20/2024 4:42 AM EST [facility] Sodium, Whole Blood 141 136 - 145 mmol/L LAB HEMATOLOGY METHOD 02/20/2024 4:42 AM EST [facility] Potassium, Whole Blood 5.4(H) 3.6 - 4.9 mmol/L LAB HEMATOLOGY METHOD 02/20/2024 4:42 AM EST [facility] Chloride, Whole Blood 104 97 - 107 mmol/L LAB HEMATOLOGY METHOD 02/20/2024 4:42 AM EST [facility] Glucose, Whole Blood 186(H) 74 - 99 mg/dL LAB HEMATOLOGY METHOD 02/20/2024 4:42 AM EST [facility] Lactate, Venous, Whole Blood 1.2 0.5 - 2.2 mmol/L LAB HEMATOLOGY METHOD 02/20/2024 4:42 AM EST [facility] Ionized Calcium, Whole Blood 4.7 4.6 - 5.1 mg/dL LAB HEMATOLOGY METHOD 02/20/2024 4:42 AM EST [facility] Blood Venous blood specimen / Unknown Venipuncture / Unknown 02/20/2024 4:15 AM EST 02/20/2024 4:40 AM EST us Tawanna Phipps MD LAB BLOOD ORDERABLES Final Re sult [facility] [address] [place] [address] * ECG Adult (02/20/2024 3:15 AM EST) EKG DIAGNOSIS CLASS Abnormal MUSE ECG Ventricular Rate 93 BPM MUSE ECG Atrial Rate 93 BPM MUSE ECG WA Interval 160 ms MUSE ECG QRSD Interval 116 ms MUSE ECG QT Interval 386 ms MUSE ECG QTC Interval 479 ms MUSE ECG P Raymond 48 degrees MUSE ECG R Raymond -28 degrees MUSE ECG T Wave Raymond 123 degrees MUSE ECG Diagnosis Normal sinus [...] documented as of this encounter Care Teams Editor Managing Newspaper Relationship Specialty Start Date End Date Pcp, Ebony [address] [place] [address] PCP - General Family Medicine 01/30/24 Ceci Greene LPN VALUE-BASED [place] [address] TCM Nurse 02/07/24 03/08/24 documented as of this encounter
--- OUTSIDE RECORDS SUMMARY | 2024-02-24 15:29 | XMS_ITS | Encounter Summary ---
Author Organization [facility] Address [address] [place] [address] Care Team Providers Care Back Tender Pulp Drier Name Role Phone Pcp, No Primary Care [...] drink first t erin in the morning (EYE-PLANT ASSOCIATE) to steady your nerves or to get rid of a hangover? 0 02/05/2023 CAGE Questionnaire Score 0 023 Utilities Answer Date Recorded In the past 12 months has th e [employer], gas, oil, or water company threatened to [...] 03/07/2024 1:40 PM EST Office Visit [facility] [place] [address], [address] [place] [address] Naeem Blunt MD [address] [place] [address] documented as of this encounter Visit Diagnoses Not on filedocumented in this encounter Additional Health Concerns Infection Onset Date Last Indicated Resolved Time MRSA Comment:Positive blood culture 03/03/2019 01/30/2024 Assessment Noted Time A Body Mass Index follow-up plan has been documented for the patient 02/05/2024 9:34 AM EST documented as of this encounter Care Teams Back Tender Pulp Drier Relationship Specialty Start Date End Date Pcp, Ebony [address] [place] [address] PCP - General Family Medicine 01/30/24 Ceci Greene LPN [employer] [place] [address] TCM Nurse 02/07/24 03/08/24 documented as of this encounter
--- OUTSIDE RECORDS SUMMARY | 2024-02-24 15:30 | XMS_ITS | Encounter Summary ---
Author Organization [facility] Address [address] [place] [address] Care Team Providers Care Circuit Court Clerk Name Role Phone Pcp, No Primary Care [...] place to sleep or slept in a usp (including now)? No 02/01/2024 CAGE ASSESSMENT Answer [...] drink first t erin in the morning (EYE-BUTTON ATTACHING MACHINE OPERATOR) to steady your nerves or [...] Upcoming Encounters Date Type Department Care Team ([facility] st Contact Info) Description 03/07/2024 1:40 PM EST Office Visit [facility] [place] [address], [address] [place] [address] Naeem Blunt MD [address] [place] [address] documented as of this encounter Visit Diagnoses [...] documented as of this encounter Care Teams Circuit Court Clerk Relationship Specialty Start Date [place] [address] PCP - General Family Medicine 01/30/24 documented as of this encounter
--- OUTSIDE RECORDS SUMMARY | 2024-02-24 15:30 | XMS_ITS | Encounter Summary ---
Author Organization [facility] Address [address] [place] [address] Care Team Providers Care Icing Mixer Name Role Phone Erik Hurley MD Primary Care Provider [phone] Encounter Details Date Type Department Care Team (Late st Contact Info) Description 12/28/2023 Telephone PAV A Inpatient [address] [place] [address] Laura Singleton CV TELE-PROGRESSIVE Social History Tobacco [...] slept in a jail (including now)? 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) to steady your nerves or to get [...] Upcoming Encounters Date Type Department Care Team ([facility] Contact Info) Description 03/07/2024 1:40 PM EST Office Visit [facility] [place] [address], [address] [place] [address] Naeem Blunt MD [address] [place] [address] documented as of this encounter Visit Diagnoses Not on filedocumented in this encounter Additional Health Concerns Infection Onset Date Last Indicated Resolved Time MRSA Comment:Positive blood culture 03/03/2019 01/30/2024 Assessment Noted Time A Body Mass Index follow-up plan has been documented for the patient 12/25/2023 10:38 AM EDT documented as of this encounter Care Teams Icing Mixer Relationship Specialty Start Date End Date Erik Hurley MD [address] [place] [address] PCP - General 06/18/23 01/29/24 documented as of this encounter
--- OUTSIDE RECORDS SUMMARY | 2024-02-24 15:30 | XMS_ITS | Encounter Summary ---
Author Organization [facility] Address [address] 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) to steady your nerves or to get [...] Upcoming Encounters Date Type Department Care Team ([facility] st Contact Info) Description 03/07/2024 1:40 PM EST Office Visit [facility] [place] [address], [address] [place] [address] Naeem Blunt MD [address] [place] [address] documented as of this encounter Visit Diagnoses Not on filedocumented in this encounter Additional Health Concerns Infection Onset Date Last Indicated Resolved Time MRSA Comment:Positive blood culture 03/03/2019 01/30/2024 Assessment Noted Time A Body Mass Index follow-up plan has been documented for the patient 02/05/2024 9:34 AM EST documented as of this encounter Care Teams Dean For Student Affairs Relationship Specialty Start Date End Date Pcp, [place] [address] PCP - General Family Medicine 01/30/24 documented as of this encounter
--- OUTSIDE RECORDS SUMMARY | 2024-02-24 15:30 | XMS_ITS | Encounter Summary ---
Author Organization [facility] Address [address] [place] [address] Care Team Providers Care Set Rider Name Role Phone Pcp, No Primary Care Provider Unavailabl e Reason for Referral * Consultation (Routine) - Authorized Specialty Diagnoses / Procedures Referred By Contac t Referred To Contact Primary Care Diagnoses Acute on chronic systolic congestive heart failure (CMS/HCC) Dustin Barakat MD [address] [place] [address] Phone: tel: fax: [address] [address] Phone: tel: Referral ID Status Reason Start Date Expiration Date Visits Requested Visits Authorized [id number] Authorized Specialty Services Required 02/04/2024 08/05/2025 1 1 * Home Health (Routine) - Authorized Specialty Diagnoses / Procedures Referred By Contac t Referred To Contact Home Health Services / Cardiology Diagnoses Acute on chronic systolic congestive heart failure (CMS/HCC) Darrin Griffin MD [address] [place] [address] Phone: tel: fax: Referral ID Status Reason Start Date Expiration Date Visits Requested Visits Authorized [id number] Authorized Specialty Services Required 02/03/2024 08/04/2025 999 999 Reason for Visit * Reason Comments Shortness of Breath * Auth/Cert (Routine) Specialty Diagnoses / Procedures Referred By Neno t Referred To Contact Diagnoses Heart failure ([facility]) Darrin Griffin MD [address] [place] [address] Phone: tel: fax: [facility] Inpatient [address] [place] [address] Phone: tel: Referral ID Status Reason Start Date Expiration Date Visits Re quested Visits Authorized [id number] 1 1 Encounter Details Date Type Department Care Team (Latest Contact Info) Description 01/30/2024 8:34 AM EST - 02/05/2024 10:23 AM EST Hospital Encounter [facility] Inpatient [address] [place] [address] Carmencita Slaughter MD [address] [place] [address] Darrin Grfifin MD [address] [place] [address] Dustin Barakat MD [address] [place] [address] Acute on chronic systolic congestive heart failure ([facility]) (Primary Dx); Acute decompensated heart failure ([facility]) Discharge Disposition: Home or Self Care Social [...] place to sleep or slept in a care home (including now)? No 02/01/2024 CAGE ASSESSMENT [...] drink first t erin in the morning (EYE-OCCUPATIONAL THERAPY DEPARTMENT CHAIR) to steady your nerves or to get rid of a hangover? 0 02/05/2023 CAGE Questionnaire Score 0 023 Utilities Answer Date Recorded In the past 12 months has th e electric, gas, oil, or water [employer] threatened to shut off services in your [...] day. 90 tablet 1 12/25/2023 glucose blood (Yeti Datauch Ultra Test) test strip Use up to [...] mL 3 02/05/2024 Insulin Pen Needle (Pen Leslie) 32G X 4 MM misc Use up [...] week. 3 mL 11 02/05/2024 5 Umeclidinium [place] (Incruse Ellipta) 62.5 MCG/ACT aerosol powder Inhale [...] MD PCP name and Address: Pcp, Ebony [address] [place] [address] Referring provider name and address: No referring provider defined for this encounter. Chief Concern, Brief History of Present Illness, and Hospital Course Discharge Hospital Course Patient: Robert Hurley Date of Service: 02/05/2024 Admit Date: 01/30/2024 [facility] Day: 6 [facility] Attending Provider: No att. providers found Primary Care Provider: Pcp, No CODE STATUS: Prior Robert Hurley is a 58 y.o. male with Shortness of Breath admitted with Heart failure ([facility]) Inpatient Medication Changes: -2mg bumex daily with [...] and prior L AKA who presented to [facility] on 01/30/2024 with worsening shortness of breath secondary to heart failure exacerbation. #HFrEF (33%) presumed 2/2 ischemic cardiomyopathy with acute exacerbation #Acute on chronic hypoxic respiratory failure -Recent discharge from [facility] for similar presentation. Was discharged on Bumex 2mg daily with PRN extra dose for increased swelling. Reports taking Bumex every other day since discharge. Has had progressive SOA -Does not meet requirements for home O2 given saturations >88% on RA, but notes he bought a concentrator from [employer] -Echo from 12/19 with LVEF 33% -Consulted [...] Losartan due to hyperkalemia -Follow up with [facility] for repeat BMP, K in 1 week #CAD -NSTEMI 01/2023, on DAPT PLAN: -continuing ASA -START atorvastatin 80mg at bedtime -STOP Plavix as NSTEMI was medically managed #Suspected COPD -long reported history of COPD though has never had PFTs and patient has never seen a photography intern. Takes Dulera and albuterol outpatient. -Continued Dulera, [...] 62.5 MCG/ACT aerosol powder Generic drug: Umeclidinium [place] Inhale 1 Inhalation 1 (one) time each [...] time(s) daily to check blood glucose Pen Leslie 32G X 4 MM misc Use up to 1 time(s) daily to administer insulin with insulin pen. Semaglutide(0.25 or 0.5MG/DOS) 2 MG/3ML solution pen-injector Inject 0.25 mg under the skin 1 (one) time per week for 28 days, THEN 0.5 mg 1 (one) time per week. Start taking on: February 05, 2024 Where to Get Your Medications These medications were sent to [facility] - [place], [place] - [address], [facility] [id number] atorvastatin 80 MG tablet bumetanide 2 MG tablet hydrALAZINE 25 MG tablet Incruse Ellipta 62.5 MCG/ACT aerosol powder insulin glargine 100 UNIT/ML injection pen isosorbide dinitrate 10 MG tablet Lancets misc mometasone-formoterol 100-5 MCG/ACT inhaler ONE TOUCH ULTRA 2 w/Device kit device kit OneTouch Ultra Test test strip Pen Leslie 32G X 4 MM misc Semaglutide(0.25 or 0.5MG/DOS) 2 MG/3ML solution pen-injector Discharge Diagnosis Medical Problems Active and Resolved Hospital Problems Hospital * (Principal) Heart failure ([facility]) Post Discharge Instructions You were admitted with [...] John Phillips MD Internal Medicine, PGY-1 Pager: [phone] Cosigned by Dustin Barakat MD at 02/12/2024 [...] from the original note were not included. [id number] Hyperkalemia ([place]) Hyperkalemia is a condition caused [...] of breath ?? Reduced urination 04/08 ?? [id number] [employer]. All rights reserved. This information is not intended as a substitute for professional medical care. Always follow your healthcare professional's instructions. This information has been modified by your health care provider with permission from the publisher. * Gabbi Starks - Charlotte Cooper RN - 02/05/2024 9:33 AM EST Images from the original note were not included. [id number] Chronic Kidney Disease (CKD) The role of [...] and past viral or bacterial infections. Certain hdpy-tsx-aoarxfa pain medicines can cause renal failure when [...] more information, visit the following links: o www.smokefree.gov/sites/default/files/pdf/prklxpop-mla-nru-accessible.pdf o www.smokefree.gov o www.cancer.org/healthy/stayawayfromtobacco/guidetoquittingsmoking ?? Most people [...] medicines or supplements. Don't use the following bgzv-oiw-hkndrnf medicines. Or consult your healthcare provider before [...] Visit these websites to learn more: ?? [place] [employer] Patients at www.aakp.org ?? National Kidney Foundation at www.kidney.org ?? [place] [employer] Fund at www.kidneyfund.org ?? National Kidney [...] worse Last Reviewed Date: 2021 00:00:00 ?? [id number] [employer]. All rights reserved. This information is not intended as a substitute for professional medical care. Always follow your healthcare professional's instructions. * Gabbi ShoemakerFLO - Charlotte Cooper RN - 02/05/2024 9:33 AM EST Images from the original note were not included. [id number] Atorvastatin Brand Name(s): Atorvaliq??, Lipitor??, Caduet?? (as [...] be awakened, immediately call emergency services at 417. What OTHER INFORMATION should I know? Keep [...] of all of the prescription and nonprescription (oydv-qbh-yxkbpho) medicines you are taking, as well as [...] or pharmacist about specific clinical use. The [place] [employer]. represents that the information provided hereunder was formulated with a reasonable standard of care, and in conformity with professional standards in the field. The [place] [employer] makes no representations or warranties, express or implied, including, but not limited to, any implied warranty of merchantability and/or fitness for a particular purpose, with respect to such information and specifically disclaims all such warranties. Users are advised that decisions regarding drug therapy are complex medical decisions requiring the independent, informed decision of an appropriate health rn patient care, and the information is provided for informational purposes only. The entire monograph for a drug should be reviewed for a thorough understanding of the drug's actions, uses and side effects. The [place] [employer] does not endorse or recommend the use of any drug.The information is not a substitute for medical care. AHFS?? Patient Medication Information?. ?? Copyright, 2023. The [place] [employer]System Pharmacists??, [address], [place], [place]. All Rights Reserved. Duplication for commercial use must be authorized by [facility]. Selected Revisions: October 16, 2023. AHFS?? Patient Medication Information?. ?? Copyright, 2023 * Gabbi Starks - Charlotte Cooper RN - 02/05/2024 9:32 AM EST Images from the original note were not included. [id number] Isosorbide Brand Name(s): Dilatrate??-SR, Imdur??, Ismo??, Ismotic??, [...] and out of their sight and reach. https://www.AdiosondMedaNext.org Unneeded medications should be disposed of in [...] of all of the prescription and nonprescription (vbdg-pxi-hnqrgos) medicines you are taking, as well as [...] or pharmacist about specific clinical use. The [place] [employer] represents that the information provided hereunder was formulated with a reasonable standard of care, and in conformity with professional standards in the field. The [place] [employer] makes no representations or warranties, express or implied, including, but not limited to, any implied warranty of merchantability and/or fitness for a particular purpose, with respect to such information and specifically disclaims all such warranties. Users are advised that decisions regarding drug therapy are complex medical decisions requiring the independent, informed decision of an appropriate health rn patient care, and the information is provided for informational purposes only. The entire monograph for a drug should be reviewed for a thorough understanding of the drug's actions, uses and side effects. The [place] [employer] does not endorse or recommend the use of any drug.The information is not a substitute for medical care. AHFS?? Patient Medication Information?. ?? Copyright, 2023. The [place] [employer]System [employer]ists??, [address], [address], [place], [place]. All Rights Reserved. Duplication for commercial use must be authorized by [facility]. Selected Revisions: December 11, 2018. AHFS?? Patient Medication Information?. ?? Copyright, 2023 * Gabbi Starks - Charlotet Cooper RN - 02/05/2024 9:32 AM EST Images from the original note were not included. [id number] Semaglutide Injection Brand Name(s): Ozempic??, Wegovy?? IMPORTANT [...] doctor or pharmacist will give you the leather whitener's patient information sheet (Medication Guide) when you begin treatment with semaglutide injection and each time you refill your prescription.Read the information carefully and ask your doctor or pharmacist if you have any questions. You canalso visit the Food and Drug Administration (FDA) website (https://www.fda.gov/Drugs/DrugSafety/ucm0 95501.htm) or the leather whitener's website to obtain the Medication Guide. Talk [...] talking to your doctor. Carefully read the leather whitener's instructions for use that comes with the [...] be awakened, immediately call emergency services at 601. What OTHER INFORMATION should I know? Do not let anyone else take your medication. Ask your pharmacist any questions you have about refilling your prescription. It is important for you to keep a written list of all of the prescription and nonprescription (twgi-dde-efysdpg) medicines you are taking, as well as [...] or pharmacist about specific clinical use. The [place] [employer] represents that the information provided hereunder was formulated with a reasonable standard of care, and in conformity with professional standards in the field. The [place] [employer]. makes no representations or warranties, express or implied, including, but not limited to, any implied warranty of merchantability and/or fitness for a particular purpose, with respect to such information and specifically disclaims all such warranties. Users are advised that decisions regarding drug therapy are complex medical decisions requiring the independent, informed decision of an appropriate health rn patient care, and the information is provided for informational purposes only. The entire monograph for a drug should be reviewed for a thorough understanding of the drug's actions, uses and side effects. The [place] [employer] does not endorse or recommend the use of any drug.The information is not a substitute for medical care. AHFS?? Patient Medication Information?. ?? Copyright, 2023. The [place] [employer]System Pharmacists??, [address], [place], [place]. All Rights Reserved. Duplication for commercial use must be authorized by [facility]. Selected Revisions: July 17, 2023. AHFS?? [...] and prior L AKA who presented to [facility] on 01/30/2024 with worsening shortness of breath [...] and prior L AKA who presented to [facility] on 01/30/2024 with worsening shortness of breath secondary to heart failure exacerbation. #HFrEF (33%) presumed 2/2 ischemic cardiomyopathy with acute exacerbation #Acute on chronic hypoxic respiratory failure -recent discharge from [facility] for similar presentation. Was discharged on Bumex [...] PFTs and patient has never seen a photography intern. Takes Dulera and albuterol outpatient. -Continue Dulera, [...] John Phillips MD Internal Medicine, PGY-1 Pager: [phone] Cosigned by Dustin Barakat MD at 02/12/2024 [...] Note Robert Hurley 58 y.o. male CSN: [id number] Admission: 01/30/2024 8:34 AM Primary Problem: Heart failure (CMS/HCC) Primary Editor & Co Founder: Primary Caregiver: Self Assistance Available at Discharge: Availability of Care Givers (#Hours): 1-4 hours Family/Editor & Co Founder(s) Willingness Assessed to care for patient at home: Yes Family/Editor & Co Founder(s) Readiness Assessed to care for patient at [...] Mobility Exam: Supine to Sit Level of [place]: Stand-by assist Physical/Nonphysical Assist: Verbal Cues (HOB flat) Bed Mobility Exam: Sit to Supine Level of [place]: Stand-by assist Physical/Nonphysical Assist: Verbal Cues (HOB flat) Transfers Transfer Exam: Sit to stand Level of [place]: Stand-by assist Physical/Nonphysical Assist: Minimal cues Assistive Device: Walker, rolling Transfer Exam: Stand to Sit Level of [place]: Stand-by assist Physical/Nonphysical Assist: Minimal cues Assistive Device: Walker, rolling Toilet Transfer Level of [place]: Stand-by assist Physical/Nonphysical Assist: Verbal Cues, Nonverbal [...] session. Participants in Care Family/Caregiver Present: No Extrusion Die Coordinator: Not Applicable Presentation Oxygen Therapy: Supplemental oxygen [...] Mobility Exam: Supine to Sit Level of [place]: Stand-by assist Physical/Nonphysical Assist: (HOB flat) Bed Mobility Exam: Sit to Supine Level of [place]: Stand-by assist Physical/Nonphysical Assist: (HOB flat) Transfers Transfer Exam: Sit to stand Level of [place]: Stand-by assist Physical/Nonphysical Assist: Minimal cues Assistive Device: Walker, rolling Transfer Exam: Stand to Sit Level of [place]: Stand-by assist Physical/Nonphysical Assist: Minimal cues Assistive Device: Walker, rolling Toilet Transfer Level of [place]: Stand-by assist Assistive Device: Grab bar Ambulation [...] Note Robert Hurley 58 y.o. male CSN: [id number] Admission: 01/30/2024 8:34 AM Primary Problem: Heart [...] Sheri Alexandre - 02/03/2024 1:09 PM EST [facility] patient enrolled in WES/BT for 6 week transition period. Transitions assist with education and support post hospital stay. Home job coach/job developer will see the patient within 48 hours [...] and prior L AKA who presented to [facility] on 01/30/2024 with worsening shortness of breath [...] and prior L AKA who presented to [facility] on 01/30/2024 with worsening shortness of breath secondary to heart failure exacerbation. HFrEF (33%) presumed 2/2 ischemic cardiomyopathy with acute exacerbation Acute on chronic hypoxic respiratory failure -recent discharge from [facility] for similar presentation. Was discharged on Bumex [...] PFTs and patient has never seen a photography intern. Takes Dulera and albuterol outpatient. -Continue Dulera, [...] today. Participants in Care Family/Caregiver Present: No Extrusion Die Coordinator: Not Applicable Presentation Oxygen: Supplemental oxygen Nasal [...] sequencing. Bed Mobility Exam: Rolling/Turning Level of [place]: Minimum assist (75% patient effort) Physical/Nonphysical Assist: Additional assist utilized for safety, Verbal Cues, Set-up required Assistive Device: Bed rails Bed Mobility Exam: Scooting/Bridging Level of [place]: Contact guard (to scoot to edge of bed) Physical/Nonphysical Assist: Verbal Cues, Set-up required Assistive Device: Bed rails Bed Mobility Exam: Supine to Sit Level of [place]: Minimum assist (75% patient's effort) Physical/Nonphysical Assist: Additional assist utilized for safety, HOB elevated, Verbal Cues, Set-up required Assistive Device: Bed rails Transfers Transfer Intervention: Verbal cues provided for correct bilateral hand and foot placement during sit to stand transfers. Transfer Exam: Sit to stand Level of [place]: Minimum assist (75% patient's effort) Physical/Nonphysical Assist: Additional assist utilized for safety, Verbal Cues, Set-up required Assistive Device: Walker, rolling Transfer Exam: Stand to Sit Level of [place]: Minimum assist (75% patient's effort) Physical/Nonphysical Assist: [...] of gait pattern and safe walker management. APPLIED COMPUTER SCIENCE PROFESSOR discussed with the patient his need for [...] well. Participants in Care Family/Caregiver Present: No Extrusion Die Coordinator: Not Applicable Presentation Oxygen Therapy: Supplemental oxygen [...] Mobility Bed Mobility Exam: Rolling/Turning Level of [place]: Minimum assist (75% patient effort) Physical/Nonphysical Assist: Additional assist utilized for safety, Verbal Cues, Set-up required Assistive Device: Bed rails Bed Mobility Exam: Scooting/Bridging Level of [place]: Contact guard (to scoot to edge of bed) Physical/Nonphysical Assist: Verbal Cues, Set-up required Assistive Device: Bed rails Bed Mobility Exam: Supine to Sit Level of [place]: Minimum assist (75% patient's effort) Physical/Nonphysical Assist: Additional assist utilized for safety, HOB elevated, Verbal Cues, Set-up required Assistive Device: Bed rails Transfers Transfer Exam: Sit to stand Level of [place]: Minimum assist (75% patient's effort) Physical/Nonphysical Assist: Additional assist utilized for safety, Verbal Cues, Set-up required Assistive Device: Walker, rolling Transfer Exam: Stand to Sit Level of [place]: Minimum assist (75% patient's effort) Physical/Nonphysical Assist: Additional assist utilized for safety, Verbal Cues, Set-up required Assistive Device: Walker, rolling Toilet Transfer Level of [place]: Minimum assist (75% patient's effort) (anticipated) Physical/Nonphysical [...] tx; pt verbalizes he will consider requesting Quality Control Director services following education on theirservices. Standardized Assessments [facility] 6-Click Daily Activities Help from Other: Don/Doff Regular Lower Body Clothings: A lot Help From Other: Bathing: A lot Help From Other: Toileting: A lot Help From Other: Don/Doff Upper Body Clothings: Little Help From Other: Grooming: Little Help From Other: Eating Meals: None [facility] 6 Click - Daily Activities Score: 16 [...] Note Robert Hurley 58 y.o. male CSN: [id number] This is a 58 y.o. male patient was admitted to [facility] with the diagnosis of Heart Failure, DM [...] have PCP. States he has went to [facility] in the past but is not in network with his insurance and he can't afford it. Pt prefers PCP in [facility] as he has transportation issues. [...] [facility] Anastasia Parmar made aware of education completion [...] Note Robert Hurley 58 y.o. male CSN: [id number] Admission: 01/30/2024 8:34 AM Primary Problem: Heart failure (CMS/HCC) Anticipated Discharge Date: TBD Additional Comments FRANCISCO JAVIER WHTIMORE spoke with Pt re: subacute rehab recommendations. [...] and prior L AKA who presented to [facility] on 01/30/2024 with worsening shortness of breath [...] and prior L AKA who presented to [facility] on 01/30/2024 with worsening shortness of breath secondary to heart failure exacerbation. HFrEF (33%) presumed 2/2 ischemic cardiomyopathy with acute exacerbation Acute on chronic hypoxic respiratory failure -recent discharge from [facility] for similar presentation. Was discharged on Bumex [...] PFTs and patient has never seen a photography intern. Takes Dulera and albuterol outpatient. -Continue Dulera, [...] and prior L AKA who presented to [facility] on 01/30/2024 with worsening shortness of breath [...] and prior L AKA who presented to [facility] on 01/30/2024 with worsening shortness of breath secondary to heart failure exacerbation. HFrEF (33%) presumed 2/2 ischemic cardiomyopathy with acute exacerbation Acute on chronic hypoxic respiratory failure -recent discharge from [facility] for similar presentation. Was discharged on Bumex [...] PFTs and patient has never seen a photography intern. Takes Dulera and albuterol outpatient. -DuoNebs PRN [...] Full Dispo: CA3, progressive. Charito Luna PGY-5 Waste Picker Cosigned by Dustin Barakat MD at 02/12/2024 [...] gain/ swelling. Mr. Hurley presented back to [facility] on 01/29 for shortness of breath and [...] OF STENT N/A Cath Stent Placement from [facility] CHOLECYSTECTOMY N/A Cholecystectomy from [facility] Family History family history includes Conversions - [...] injection 5,000 Units 5,000 Units Subcutaneous [facility] Anastasia Parmar MD 5,000 Units at 02/01/24 [...] is no recent study available for direct yjdn-nn-jjuw comparison. Echo, Adult Transthoracic Complete Result Date: [...] is no recent study available for direct xswh-ia-ykcp comparison. Consider further evaluation with a transesophageal [...] until signed by attending. Agatha Wilcox MD Waste Picker PGY-4 Pager [phone] or via sCoolTV chat Cosigned by Maritza Hodgson MD at [...] Note Robert Hurley 58 y.o. male CSN: [id number] Admission: 01/30/2024 8:34 AM Primary Problem: Heart failure (CMS/HCC) Post Exchange Manager reviewed chart and spoke with patient to complete this Initial Case Management Assessment. PCP: Pcp, No Emergency Contact: No emergency contact information on file. Insurance: Primary Visit Coverage Payer Plan Sponsor Code Group Number Group Name MEDICARE MEDICARE A & B Primary Visit Coverage Subscriber Subscriber ID Subscriber Name Subscriber SSN Subscriber Address [id number] ROBERT HURLEY [id number] [place] [address] Secondary Visit Coverage Payer Plan Sponsor Code Group Number Group Name MEDICAID-[facility] MEDICAID TRADITIONAL Secondary Visit Coverage Subscriber Subscriber ID Subscriber Name Subscriber SSN Subscriber Address [id number] ROBERT HURLEY [id number] [place] [address] Patient information: Primary Caregiver: Self Daily Living Activities: Functional Status: Independent Living Arrangements: Alone Type of Residence: Private residence, Single Level [address] [address] Current DME: Equipment Currently Used at Home: [...] Appoinments: Medical Transport Living Will/Advance Directive/Power of Roper Operator /Guardian: Unable to assess: No Have you reviewed your Advance Directive and is it valid for this stay?: No Advance Directive: Patient would not like information Information Provided on Healthcare Directives: No Pre-existing DNR/DNI Order: No Patient Requests Assistance: No Additional Comments: Cm spoke to patient at bedside about Cm role in discharge planning. Cm verified Emergency contact and patient address as [address] Patient is independent with ADLs prior to admission. Patient denies use of any HH or dialysis prior to admission, but uses a Left BKA prosthetic, wheelchair, and oxygen. Patient lives alone and has family/ friends that are agreeable and able to provide support if needed. Patient has Medicare A and B/ Medicaid insurance and has prescription coverage. Patient pharmacy is [facility] in [facility]. Medicaid transport will transport home [...] discussed with patient: 01/31/24 Fall Risk Prevention progressive care nurse discussed and understanding verbalized: yes Fall Prevention flyer discussed with patient/family and left at bedside: yes Personalized Fall Risks identified and discussed with patient and marked on progressive care nurse: yes Personalized Fall Interventions identified and discussed with patient and marked on progressive care nurse: yes-Patient agreed to zone 1. Placed on progressive care nurse and bedside RN informed. Fall Risk Prevention progressive care nurse placed on bathroom door and bedside staff [...] and prior L AKA who presented to [facility] on 01/30/2024 with worsening shortness of breath [...] and prior L AKA who presented to [facility] on 01/30/2024 with worsening shortness of breath likely secondary to heart failure exacerbation. HFrEF (33%) presumed 2/2 ischemic cardiomyopathy with acute exacerbation Acute on chronic hypoxic respiratory failure -recent discharge from [facility] for similar presentation. Was discharged on Bumex [...] PFTs and patient has never seen a photography intern. Takes Dulera and albuterol outpatient. -started DuoNebs [...] admitted 01/30/2024 for work-up of Heart failure ([facility]). Hospital Course 1. Acute on chronic systolic congestive heart failure ([facility]) Procedures Past 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 Patient has a [...] Level of Mobility Ambulatory- household only Mobility [place] Independent transfers without device (Uses wheel chair [...] Touch Sensation Intact BED MOBILITY Level of [place] Physical/Non-physical Assist Adaptive Equipment Utilized Comments Patient was received sitting EOB upon therapist arrival. TRANSFERS Level of [place] Physical/Non-physical Assist Adaptive Equipment Utilized Sit to [...] Posture: Stooped posture, Forward head Level of [place] Balance Support Static Sit Standby assist Feet supported, Right upper extremity support, Left upper extremity support Dynamic Sit Standby assisst Feet supported Static Stand Contact guard Right upper extremity support, Left upper extremity support (via RW) Dynamic Stand Minimum assistance Right upper extremity support, Left upper extremity support (via RW) STANDARDIZED ASSESSMENTS [facility] 6-Click Daily Activities Help from Other: Don/Doff Regular Lower Body Clothings: A lot Help From Other: Bathing: A lot Help From Other: Toileting: A lot Help From Other: Don/Doff Upper Body Clothings: Little Help From Other: Grooming: Little Help From Other: Eating Meals: None [facility] 6 Click - Daily Activities Score: 16 [...] needed areas of treatment space. Level of [place] Interventions Grooming Setup, SBA Chair level Patient [...] admitted 01/30/2024 for work-up of Heart failure ([facility]). Problem List Active Hospital Problems Diagnosis Date [...] room. Participants in Care Family/Caregiver Present: No Extrusion Die Coordinator: Not Applicable Presentation Oxygen Therapy: Supplemental oxygen [...] Level of Mobility: Ambulatory- household only Mobility [place]: Independent transfers without device (Uses wheel chair [...] Transfer Exam: Sit to stand Level of [place]: Contact guard Physical/Nonphysical Assist: Verbal Cues, Nonverbal cues (demo/gestures), 1 person + 1 person to manage equipment, Set-up required Assistive Device: Walker, rolling Transfer Exam: Stand to Sit Level of [place]: Contact guard Physical/Nonphysical Assist: Set-up required, Verbal [...] Level of Assistance: Minimum assistance Standardized Assessments [facility] 6-Clicks Mobility Assessment Difficulty patient has turning [...] 3-5 steps with a railing?: A lot [facility] 6-Clicks Mobility Assessment Total : 17 Assessment [...] Shortness of Breath admitted with Heart failure ([facility]) Inpatient Medication Changes: -2mg bumex daily with [...] and prior L AKA who presented to [facility] on 01/30/2024 with worsening shortness of breath secondary to heart failure exacerbation. #HFrEF (33%) presumed 2/2 ischemic cardiomyopathy with acute exacerbation #Acute on chronic hypoxic respiratory failure -Recent discharge from [facility] for similar presentation. Was discharged on Bumex 2mg daily with PRN extra dose for increased swelling. Reports taking Bumex every other day since discharge. Has had progressive SOA -Does not meet requirements for home O2 given saturations >88% on RA, but notes he bought a concentrator from [employer] -Echo from 12/19 with LVEF 33% -Consulted [...] Losartan due to hyperkalemia -Follow up with [facility] for repeat BMP, K in 1 week #CAD -NSTEMI 01/2023, on DAPT PLAN: -continuing ASA -START atorvastatin 80mg at bedtime -STOP Plavix as NSTEMI was medically managed #Suspected COPD -long reported history of COPD though has never had PFTs and patient has never seen a photography intern. Takes Dulera and albuterol outpatient. -Continued Dulera, [...] and prior L AKA who presented to [facility] on 01/30/2024 with worsening shortness of breath. [...] near baseline. He was recently admitted to [facility] from 12/15 to 12/24 for decompensated HFrEF [...] OF STENT N/A Cath Stent Placement from [facility] CHOLECYSTECTOMY N/A Cholecystectomy from [facility] Family History family history includes Conversions - [...] mg, Sublingual, Every 5 min PRN Umeclidinium [place] (Incruse Ellipta) 62.5 MCG/ACT aerosol powder 1 [...] cardiomyopathy, CAD s/p remote PCI, suspected COPD, CMAACHO cirrhosis, T2DM, CKD4, and prior L AKA who presented to [facility] on 01/30/2024 with worsening shortness of breath likely secondary to heart failure exacerbation. HFrEF (33%) presumed 2/2 ischemic cardiomyopathy with acute exacerbation Acute on chronic hypoxic respiratory failure -recent discharge from [facility] for similar presentation. Was discharged on Bumex [...] PFTs and patient has never seen a photography intern. Takes Dulera and albuterol outpatient. -started DuoNebs [...] Placement from [facility] CHOLECYSTECTOMY N/A Cholecystectomy from [facility] [employer] Family History Problem Relation Name Age of [...] 01/30/24 1144 Admit to inpatient Once Completed PARMAR, ANASTASIA E 01/30/24 1144 Mobility Orders Until [...] hyperkalemia. Order ID Start Status Ordering Provider [id number] 01/30/24 1039 Canceled CASH MARADIAGA [id number] 01/30/24 1100 Canceled LILLIAM MARADIAGAR Abigail [id number] 01/30/24 1200 Canceled CASH MARADIAGA Canceled LILLIAM [...] None Disposition Admit Admitting/Attending Physician: DARRIN GRIFFIN [[id number]] Provider Care Team: CAR FLOOR/OBSERVATION [[id number]] Are [...] Description 03/07/2024 1:40 PM EST Office Visit [facility] [place] [address], [address] [place] [address] Naeem Blunt MD [address] [place] [id number] Scheduled Orders Name Type Priority Associated Diagnoses Orde r Schedule Basic metabolic panel Lab Routine Acute on chronic systolic congestive heart failure ([facility]) Expected: 02/12/2024 (Approximate), Expires: 08/04/2025 Scheduled Referrals [...] POCT glucose meter (02/05/2024 8:27 AM EST) [facility] POCT Glucose 152(H) 74 - 99 [...] Comment 02/05/2024 8:28 AM EST [facility] Stockbroking Dealer ID Yumi Lux 8:28 AM EST [facility]ALTH[facility]ARE [facility] Device ID [id number] 02/05/2024 8:28 AM EST [facility] Specimen Type POC Capillary 02/05/2024 8:28 AM EST [facility] Blood Capillary blood specimen / Unknown 02/05/2024 8:27 AM EST 02/05/2024 8:28 AM EST Dustin Barakat MD LAB POINT OF CARE TE ST DOCKED DEVICE UNSOLICITED RESULTS Final Result [facility] [address] [place] [id number] * (ABNORMAL) CBC W/O Differential (02/05/2024 3:55 AM EST) [facility] WBC Count 4.07 3.70 - 10.30 10*3/uL LAB HEMATOLOGY METHOD 02/05/2024 4:35 AM EST [facility] RBC Count 4.16(L) 4.60 - 6.10 10*6/uL LAB HEMATOLOGY METHOD 02/05/2024 4:35 AM EST [facility] HGB 11.0(L) 13.7 - 17.5 g/dL LAB HEMATOLOGY METHOD 02/05/2024 4:35 AM EST [facility] HCT 34.8(L) 40.0 - 51.0 % LAB HEMATOLOGY METHOD 02/05/2024 4:35 AM EST [facility] Platelet Count 200 155 - 369 10*3/uL LAB HEMATOLOGY METHOD 02/05/2024 4:35 AM EST [facility] MCV 84 79 - 98 fL LAB HEMATOLOGY METHOD 02/05/2024 4:35 AM EST [facility] MCH 26.4 26.0 - 32.0 pg LAB HEMATOLOGY METHOD 02/05/2024 4:35 AM EST [facility] MCHC 31.6 30.7 - 35.5 g/dL LAB HEMATOLOGY METHOD 02/05/2024 4:35 AM EST [facility] RDW 19.7(H) 11.5 - 14.5 % LAB HEMATOLOGY METHOD 02/05/2024 4:35 AM EST [facility] MPV 10.6 8.8 - 12.5 fL LAB HEMATOLOGY METHOD 02/05/2024 4:35 AM EST [facility] nRBC 0.0 <=0.0 per 100 WBCs LAB HEMATOLOGY METHOD 02/05/2024 4:35 AM EST [facility] Blood Venous blood specimen / Unknown Venipuncture / Unknown 02/05/2024 3:55 AM EST 02/05/2024 4:27 AM EST Dustin Barakat MD LAB BLOOD ORDERABLES Final Re sult [facility] [address] [place] [address] * (ABNORMAL) Magnesium (02/05/2024 3:55 AM EST) Magnesium, Plasma 2.5(H) 1.9 - 2.4 mg/dL 02/05/2024 4:52 AM EST [facility] Blood Venous blood specimen / Unknown Venipuncture / Unknown 02/05/2024 3:55 AM EST 02/05/2024 4:23 AM EST us Dustin Barakat MD LAB BLOOD ORDERABLES Final Re sult [facility] [address] [place] [address] * (ABNORMAL) Basic metabolic panel (02/05/2024 3:55 AM EST) Glucose, Plasma 187(H) 74 - 99 mg/dL 02/05/2024 4:52 AM EST [facility] BUN, Plasma 80(H) 7 - 21 mg/dL 02/05/2024 4:52 AM EST [facility] Creatinine, Plasma 3.12(H) 0.70 - 1.20 mg/dL 02/05/2024 4:52 AM EST [facility] BUN/Creatinine Ratio 26 02/05/2024 4:52 AM EST [facility] Sodium, Plasma 138 136 - 145 mmol/L 02/05/2024 4:52 AM EST [facility] Potassium, Plasma 4.7 3.6 - 4.9 mmol/L 02/05/2024 4:52 AM EST [facility] Chloride, Plasma 99 97 - 107 mmol/L 02/05/2024 4:52 AM EST [facility] CO2, Plasma 27 22 - 29 mmol/L 02/05/2024 4:52 AM EST [facility] Anion Gap 12 6 - 16 mmol/L 02/05/2024 4:52 AM EST [facility] Total Calcium, Plasma 8.9 8.9 - 10.2 mg/dL 02/05/2024 4:52 AM EST [facility] eGFRcr 22.5 mL/min/1.7 3m*2 02/05/2024 4:52 AM EST [facility] Comment:Reported eGFRcr in m L/min/1.73m2 is based the CKD-EPI 2020 equation that does not use a race coefficient. Blood Venous blood specimen / Unknown Venipuncture / Unknown 02/05/2024 3:55 AM EST 02/05/2024 4:23 AM EST Dustin Barakat MD LAB BLOOD ORDERABLES Final Re sult [facility] [address] [place] [address] * (ABNORMAL) POCT glucose meter (02/04/2024 8:26 PM EST) [facility] POCT Glucose 194(H) 74 - 99 [...] 02/04/2024 8:28 PM EST [facility] Stock[employer] Dealer ID KalaCharito roger 8:28 PM EST [facility] Device ID [id number] 02/04/2024 8:28 PM EST [facility] Specimen Type POC Capillary 02/04/2024 8:28 PM EST [facility] Blood Capillary blood specimen / Unknown 02/04/2024 8:26 PM EST 02/04/2024 8:28 PM EST Dustin Barakat MD LAB POINT OF CARE TE ST DOCKED DEVICE UNSOLICITED RESULTS Final Result Performing Organization Address [facility] Co de Phone Number [facility] [address] [place] [address] * (ABNORMAL) POCT glucose meter (02/04/2024 5:37 PM EST) [facility] POCT Glucose 135(H) 74 - 99 [...] 02/04/2024 5:39 PM EST [facility] Stockbro[employer] Dealer ID Alma Faulkner 5:39 PM EST [facility] Device ID [id number] 02/04/2024 5:39 PM EST [facility] Specimen Type POC Capillary 02/04/2024 5:39 PM EST [facility] Blood Capillary blood specimen / Unknown 02/04/2024 5:37 PM EST 02/04/2024 5:39 PM EST Dustin Barakat MD LAB POINT OF CARE TE ST DOCKED DEVICE UNSOLICITED RESULTS Final Result Performing Organization Address [facility] Co de Phone Number [facility] [address] [place] [address] * (ABNORMAL) POCT glucose meter (02/04/2024 1:07 [...] 02/04/2024 1:08 PM EST [facility] Stockbro[employer] Dealer ID Alma Faulkner 024 1:08 PM EST [facility] Device ID [id number] 02/04/2024 1:08 PM EST [facility] Specimen Type POC Capillary 02/04/2024 1:08 PM EST [facility] Blood Capillary blood specimen / Unknown 02/04/2024 1:07 PM EST 02/04/2024 1:08 PM EST Dustin Barakat MD LAB POINT OF CARE TE ST DOCKED DEVICE UNSOLICITED RESULTS Final Result Performing Organization Address [facility] Co de Phone Number [facility] [address] [place] [address] * (ABNORMAL) POCT glucose meter (02/04/2024 8:58 [...] for testing. Comment 02/04/2024 9:00 AM EST [facility] Stockbro[employer] Dealer ID Alma Faulkner 024 9:00 AM EST HEALTH[facility]ARE LAB Device ID [id number] 02/04/2024 9:00 AM EST [facility] Specimen Type POC Capillary 02/04/2024 9:00 AM EST [facility] Blood Capillary blood specimen / Unknown 02/04/2024 8:58 AM EST 02/04/2024 9:00 AM EST us Dustin Barakat MD LAB POINT OF CARE TE ST DOCKED DEVICE UNSOLICITED RESULTS Final Result Performing Organization Address [facility] Co de Phone Number [facility] [address] [place] [address] * Lavender Top (02/04/2024 3:47 AM EST) Extra Hold for add-ons 02/04/2024 7:01 AM EST [facility] Comment:Auto resulted. Blood Venous blood specimen / Unknown 02/04/2024 3:47 AM EST 02/04/2024 4:39 AM EST us Dustin Barakat MD LAB BLOOD ORDERABLES Final Re sult [facility] [address] [place] [address] * (ABNORMAL) Basic metabolic panel (02/04/2024 3:47 AM EST) Glucose, Plasma 269(H) 74 - 99 mg/dL 02/04/2024 4:37 AM EST [facility] BUN, Plasma 77(H) 7 - 21 mg/dL 02/04/2024 4:37 AM EST [facility] Creatinine, Plasma 3.04(H) 0.70 - 1.20 mg/dL 02/04/2024 4:37 AM EST [facility] BUN/Creatinine Ratio 25 02/04/2024 4:37 AM EST [facility] Sodium, Plasma 136 136 - 145 mmol/L 02/04/2024 4:37 AM EST [facility] Potassium, Plasma 4.3 3.6 - 4.9 mmol/L 02/04/2024 4:37 AM EST [facility] Chloride, Plasma 93(L) 97 - 107 mmol/L 02/04/2024 4:37 AM EST [facility] CO2, Plasma 29 22 - 29 mmol/L 02/04/2024 4:37 AM EST [facility] Anion Gap 14 6 - 16 mmol/L 02/04/2024 4:37 AM EST [facility] Total Calcium, Plasma 8.7(L) 8.9 - 10.2 mg/dL 02/04/2024 4:37 AM EST [facility] eGFRcr 23.3 mL/min/1.7 3m*2 02/04/2024 4:37 AM EST [facility] Comment:Reported eGFRcr in m L/min/1.73m2 is based the CKD-EPI 2020 equation that does not use a race coefficient. Blood Venous blood specimen / Unknown Venipuncture / Unknown 02/04/2024 3:47 AM EST 02/04/2024 4:06 AM EST us Dustin Barakat MD LAB BLOOD ORDERABLES Final Re sult [facility] [address] [place] [address] * (ABNORMAL) POCT glucose meter (02/03/2024 8:58 PM EST) POCT Glucose 135(H) 74 - 99 mg/dL 02/03/2024 9:05 PM [facility] Comment:Accuracy of a glucos e [...] Comment 02/03/2024 9:05 PM EST [facility] Stockbroking Dealer ID Dedrick Wilcox 02/03/2024 9:05 PM EST [facility] Device ID [id number] 02/03/2024 9:05 PM EST [facility] Specimen Type POC Capillary 02/03/2024 9:05 PM EST [facility] Blood Capillary blood specimen / Unknown 02/03/2024 8:58 PM EST 02/03/2024 9:05 PM EST Dustin Barakat MD LAB POINT OF CARE TE ST DOCKED DEVICE UNSOLICITED RESULTS Final Result Performing Organization Address [facility] Co de Phone Number [facility] [address] [place] [address] * (ABNORMAL) POCT glucose meter (02/03/2024 5:59 [...] Comment 02/03/2024 6:00 PM EST [facility] Stockbroking Dealer ID Shakira Trejo 6:00 PM EST [facility] Device ID [id number] 02/03/2024 6:00 PM EST [facility] Specimen Type POC Capillary 02/03/2024 6:00 PM EST [facility] Blood Capillary blood specimen / Unknown 02/03/2024 5:59 PM EST 02/03/2024 6:00 PM EST Dustin Barakat MD LAB POINT OF CARE TE ST DOCKED DEVICE UNSOLICITED RESULTS Final Result Performing Organization Address City/[facility]/ZIP Co de Phone Number [facility] [address] [place] [address] * (ABNORMAL) POCT glucose meter (02/03/2024 12:56 PM EST) [facility] POCT Glucose 241(H) 74 - 99 [...] 02/03/2024 12:58 PM EST [facility] [employer] Dealer ID Shakira Trejo 12:58 PM EST [facility] Device ID [id number] 02/03/2024 12:58 PM EST [facility] Specimen Type POC Capillary 02/03/2024 12:58 PM EST [facility] Blood Capillary blood specimen / Unknown 02/03/2024 12:56 PM EST 02/03/2024 12:58 PM EST Drarin Griffin MD LAB POINT OF CARE TE ST DOCKED DEVICE UNSOLICITED RESULTS Final Result Performing Organization Address City/State/[facility] Co de Phone Number [facility] [address] [place] [address] * (ABNORMAL) POCT glucose meter (02/03/2024 8:55 AM EST) [facility] POCT Glucose 177(H) 74 - 99 [...] 02/03/2024 8:57 AM EST [facility] Stock[employer] Dealer ID Charito Griffin 02/03/2024 8:57 AM EST [facility] Device ID [id number] 02/03/2024 8:57 AM EST [facility] Specimen Type POC Capillary 02/03/2024 8:57 AM EST [facility] Blood Capillary blood specimen / Unknown 02/03/2024 8:55 AM EST 02/03/2024 8:57 AM EST Darrin Griffin MD LAB POINT OF CARE TE ST DOCKED DEVICE UNSOLICITED RESULTS Final Result Performing Organization Address [facility]/ZIP Co de Phone Number [facility] [address] [place] [address] * Bilirubin, total (02/03/2024 2:26 AM EST) Total Bilirubin, Plasma 0.8 0.2 - 1.1 mg/dL 02/03/2024 9:01 AM EST [facility] Blood Venous blood specimen / Unknown Venipuncture / Unknown 02/03/2024 2:26 AM EST 02/03/2024 2:37 AM EST Dustin Barakat MD LAB BLOOD ORDERABLES Final Re sult Performing Organization Address City/[facility] Co de Phone Number [facility] [address] [place] [address] * Alanine Aminotransferase, Plasma (02/03/2024 2:26 AM EST) ALT, Plasma 23 10 - 50 U/L 02/03/2024 9:01 AM EST [facility] Blood Venous blood specimen / Unknown Venipuncture / Unknown 02/03/2024 2:26 AM EST 02/03/2024 2:37 AM EST Dustin Barakat MD LAB BLOOD ORDERABLES Final Re sult Performing Organization Address City/[facility] Co de Phone Number [facility] [address] [place] [address] * (ABNORMAL) Alkaline Phosphatase (02/03/2024 2:26 AM EST) Alkaline Phosphatase, Plasma 317(H) 40 - 115 U/L 02/03/2024 9:01 AM EST [facility] Blood Venous blood specimen / Unknown Venipuncture / Unknown 02/03/2024 2:26 AM EST 02/03/2024 2:37 AM EST us Dustin Barakat MD LAB BLOOD ORDERABLES Final Re sult [facility] [address] [place] [address] * Aspartate Aminotransferase, Plasma (02/03/2024 2:26 AM EST) AST, Plasma 35 10 - 50 U/L 02/03/2024 9:01 AM EST [facility] Blood Venous blood specimen / Unknown Venipuncture / Unknown 02/03/2024 2:26 AM EST 02/03/2024 2:37 AM EST us Dustin Barakat MD LAB BLOOD ORDERABLES Final Re sult Performing Organization Address [facility] Co de Phone Number [facility] [address] [place] [address] * Lavender Top (02/03/2024 2:26 AM EST) Extra Hold for add-ons 02/03/2024 5:01 AM EST [facility] Comment:Auto resulted. Blood Venous blood specimen / Unknown 02/03/2024 2:26 AM EST 02/03/2024 2:35 AM EST us Darrin Griffin MD LAB BLOOD ORDERABLES Final Res ult Performing Organization Address City/[facility]/ZIP Co de Phone Number [facility] [address] [place] [address] * (ABNORMAL) Basic metabolic panel (02/03/2024 2:26 AM EST) Glucose, Plasma 309(H) 74 - 99 mg/dL 02/03/2024 3:04 AM EST [facility] BUN, Plasma 72(H) 7 - 21 mg/dL 02/03/2024 3:04 AM EST [facility] Creatinine, Plasma 3.14(H) 0.70 - 1.20 mg/dL 02/03/2024 3:04 AM EST [facility] BUN/Creatinine Ratio 23 02/03/2024 3:04 AM EST [facility] Sodium, Plasma 137 136 - 145 mmol/L 02/03/2024 3:04 AM EST [facility] Potassium, Plasma 4.5 3.6 - 4.9 mmol/L 02/03/2024 3:04 AM EST [facility] Chloride, Plasma 94(L) 97 - 107 mmol/L 02/03/2024 3:04 AM EST [facility] CO2, Plasma 30(H) 22 - 29 mmol/L 02/03/2024 3:04 AM EST [facility] Anion Gap 13 6 - 16 mmol/L 02/03/2024 3:04 AM EST [facility] Total Calcium, Plasma 8.7(L) 8.9 - 10.2 mg/dL 02/03/2024 3:04 AM EST [facility] eGFRcr 22.4 mL/min/1.7 3m*2 02/03/2024 3:04 AM EST [facility] Comment:Reported eGFRcr in m L/min/1.73m2 is based the CKD-EPI 2020 equation that does not use a race coefficient. Blood Venous blood specimen / Unknown Venipuncture / Unknown 02/03/2024 2:26 AM EST 02/03/2024 2:37 AM EST us Darrin Griffin MD LAB BLOOD ORDERABLES Final Res ult [facility] [address] [place] [address] * (ABNORMAL) POCT glucose meter (02/02/2024 8:35 PM EST) POCT Glucose 152(H) 74 - 99 mg/dL 02/02/2024 8:39 PM EST [facility] Comment:Accuracy of a glucos e result [...] for testing. Comment 02/02/2024 8:39 PM EST [facility] Stockbroking Dealer ID Dedrick Wilcox 02/02/2024 8:39 PM EST [facility] Device ID [id number] 02/02/2024 8:39 PM EST [facility] Specimen Type POC Capillary 02/02/2024 8:39 PM EST [facility] Blood Capillary blood specimen / Unknown 02/02/2024 8:35 PM EST 02/02/2024 8:39 PM EST us Darrin Griffin MD LAB POINT OF CARE TE ST DOCKED DEVICE UNSOLICITED RESULTS Final Result Performing Organization Address [facility] Co de Phone Number [facility] [address] [place] [address] * (ABNORMAL) POCT glucose meter (02/02/2024 5:39 [...] Comment 02/02/2024 5:40 PM EST [facility] Stockbroking Dealer ID Divya Malloy 02/02/2024 5:40 PM EST [facility] Device ID [id number] 02/02/2024 5:40 PM EST [facility] Specimen Type POC Capillary 02/02/2024 5:40 PM EST [facility] Blood Capillary blood specimen / Unknown 02/02/2024 5:39 PM EST 02/02/2024 5:40 PM EST us Darrin Griffin MD LAB POINT OF CARE TE ST DOCKED DEVICE UNSOLICITED RESULTS Final Result Performing Organization Address [facility] Co de Phone Number [facility] [address] [place] [address] * (ABNORMAL) POCT glucose meter (02/02/2024 12:10 PM EST) POCT Glucose 249(H) 74 - 99 mg/dL 02/02/2024 12:12 PM EST [facility] Comment:Accuracy of a glucos e result [...] Comment 02/02/2024 12:12 PM EST [facility] Stockbroking Dealer ID Divya Malloy 02/02/2024 12:12 PM EST [facility] Device ID [id number] 02/02/2024 12:12 PM EST [facility] Specimen Type POC Capillary 02/02/2024 12:12 PM EST [facility] Blood Capillary blood specimen / Unknown 02/02/2024 12:10 PM EST 02/02/2024 12:12 PM EST Darrin Griffin MD LAB POINT OF CARE TE ST DOCKED DEVICE UNSOLICITED RESULTS Final Result Performing Organization Address City/State/[facility] Co de Phone Number [facility] [address] [place] [address] * (ABNORMAL) POCT glucose meter (02/02/2024 8:33 AM EST) [facility] POCT Glucose 153(H) 74 - 99 mg/dL 02/02/2024 8:37 AM EST [facility] Comment:Accuracy of a glucos e result [...] Comment 02/02/2024 8:37 AM EST [facility] Stockbroking Dealer ID Holly Marcial 02/02/20 8:37 AM EST [facility] Device ID [id number] 02/02/2024 8:37 AM EST [facility] Specimen Type POC Capillary 02/02/2024 8:37 AM EST [facility] Blood Capillary blood specimen / Unknown 02/02/2024 8:33 AM EST 02/02/2024 8:37 AM EST us Darrin Griffin MD LAB POINT OF CARE TE ST DOCKED DEVICE UNSOLICITED RESULTS Final Result Performing Organization Address [facility] de Phone Number [facility] [address] [place] [address] * (ABNORMAL) POCT glucose meter (02/02/2024 4:16 AM EST) POCT Glucose 191(H) 74 - 99 mg/dL 02/02/2024 4:19 AM EST [facility] Comment:Accuracy of a glucos e result [...] for testing. Comment 02/02/2024 4:19 AM EST [facility] Stockbroking Dealer ID Neo Curtis 02/02/2024 4:19 AM EST [facility] Device ID [id number] 02/02/2024 4:19 AM EST [facility] Specimen Type POC Capillary 02/02/2024 4:19 AM EST [facility] Blood Capillary blood specimen / Unknown 02/02/2024 4:16 AM EST 02/02/2024 4:19 AM EST us Darrin Griffin MD LAB POINT OF CARE TE ST DOCKED DEVICE UNSOLICITED RESULTS Final Result Performing Organization Address [facility] Phone Number [facility] [address] [place] [address] * Magnesium (02/02/2024 1:21 AM EST) Magnesium, Plasma 1.9 1.9 - 2.4 mg/dL 02/02/2024 3:29 AM EST [facility] Blood Venous blood specimen / Unknown Venipuncture / Unknown 02/02/2024 1:21 AM EST 02/02/2024 1:31 AM EST us Darrin Griffin MD LAB BLOOD ORDERABLES Final Res ult Performing Organization Address City/[facility]/ZIP Co de Phone Number [facility] [address] [place] [address] * (ABNORMAL) Basic metabolic panel (02/02/2024 1:21 AM EST) Glucose, Plasma 281(H) 74 - 99 mg/dL 02/02/2024 2:24 AM EST [facility] BUN, Plasma 61(H) 7 - 21 mg/dL 02/02/2024 2:24 AM EST [facility] Creatinine, Plasma 2.97(H) 0.70 - 1.20 mg/dL 02/02/2024 2:24 AM EST [facility] BUN/Creatinine Ratio 21 02/02/2024 2:24 AM EST [facility] Sodium, Plasma 136 136 - 145 mmol/L 02/02/2024 2:24 AM EST [facility] Potassium, Plasma 4.2 3.6 - 4.9 mmol/L 02/02/2024 2:24 AM EST [facility] Chloride, Plasma 95(L) 97 - 107 mmol/L 02/02/2024 2:24 AM EST [facility] CO2, Plasma 25 22 - 29 mmol/L 02/02/2024 2:24 AM EST [facility] Anion Gap 16 6 - 16 mmol/L 02/02/2024 2:24 AM EST [facility] Total Calcium, Plasma 8.6(L) 8.9 - 10.2 mg/dL 02/02/2024 2:24 AM EST [facility] eGFRcr 23.9 mL/min/1.7 3m*2 02/02/2024 2:24 AM EST [facility] Comment:Reported eGFRcr in m L/min/1.73m2 is based the CKD-EPI 2020 equation that does not use a race coefficient. Blood Venous blood specimen / Unknown Venipuncture / Unknown 02/02/2024 1:21 AM EST 02/02/2024 1:31 AM EST us Darrin Griffin MD LAB BLOOD ORDERABLES Final Res ult [facility] [address] [place] [address] * (ABNORMAL) POCT glucose meter (02/01/2024 8:46 [...] for testing. Comment 02/01/2024 8:48 PM EST [facility] Stockbroking Dealer ID Cammie Hernandez 02/01/2024 8:48 PM EST [facility] Device ID [id number] 02/01/2024 8:48 PM EST [facility] Specimen Type POC Capillary 02/01/2024 8:48 PM EST [facility] Blood Capillary blood specimen / Unknown 02/01/2024 8:46 PM EST 02/01/2024 8:48 PM EST Darrin Griffin MD LAB POINT OF CARE TE ST DOCKED DEVICE UNSOLICITED RESULTS Final Result Performing Organization Address City/State/[facility] Co de Phone Number [facility] [address] [place] [address] * (ABNORMAL) POCT glucose meter (02/01/2024 4:49 PM EST) Pathologist [facility] POCT Glucose 168(H) 74 - 99 mg/dL 02/01/2024 4:59 PM EST [facility] Comment:Accuracy of a glucos e result [...] 02/01/2024 4:59 PM EST [facility] Stockbroking Dealer ID Monserrat Wilcox 02/01/2024 4:59 PM EST [facility] Device ID [id number] 02/01/2024 4:59 PM EST [facility] Specimen Type POC Capillary 02/01/2024 4:59 PM EST [facility] Blood Capillary blood specimen / Unknown 02/01/2024 4:49 PM EST 02/01/2024 4:59 PM EST us Darrin Griffin MD LAB POINT OF CARE TE ST DOCKED DEVICE UNSOLICITED RESULTS Final Result Performing Organization Address [facility]/ZIP Co de Phone Number [facility] [address] [place] [address] * Magnesium (02/01/2024 12:24 PM EST) Magnesium, Plasma 2.1 1.9 - 2.4 mg/dL 02/01/2024 11:36 PM EST [facility] Blood Venous blood specimen / Unknown Venipuncture / Unknown 02/01/2024 12:24 PM EST 02/01/2024 12:45 PM EST us Dustin Barakat MD LAB BLOOD ORDERABLES Final Re sult Performing Organization Address City/[facility]/ZIP Co de Phone Number [facility] [address] [place] [address] * (ABNORMAL) Basic metabolic panel (02/01/2024 12:24 PM EST) Glucose, Plasma 164(H) 74 - 99 mg/dL 02/01/2024 1:16 PM EST [facility] BUN, Plasma 55(H) 7 - 21 mg/dL 02/01/2024 1:16 PM EST [facility] Creatinine, Plasma 2.77(H) 0.70 - 1.20 mg/dL 02/01/2024 1:16 PM EST [facility] BUN/Creatinine Ratio 20 02/01/2024 1:16 PM EST [facility] Sodium, Plasma 138 136 - 145 mmol/L 02/01/2024 1:16 PM EST [facility] Potassium, Plasma 4.1 3.6 - 4.9 mmol/L 02/01/2024 1:16 PM EST [facility] Chloride, Plasma 96(L) 97 - 107 mmol/L 02/01/2024 1:16 PM EST [facility] CO2, Plasma 29 22 - 29 mmol/L 02/01/2024 1:16 PM EST [facility] Anion Gap 13 6 - 16 mmol/L 02/01/2024 1:16 PM EST [facility] Total Calcium, Plasma 9.4 8.9 - 10.2 mg/dL 02/01/2024 1:16 PM EST [facility] eGFRcr 26.0 mL/min/1.7 3m*2 02/01/2024 1:16 PM EST [facility] Comment:Reported eGFRcr in m L/min/1.73m2 is based the CKD-EPI 2020 equation that does not use a race coefficient. Blood Venous blood specimen / Unknown Venipuncture / Unknown 02/01/2024 12:24 PM EST 02/01/2024 12:45 PM EST us Darrin Griffin MD LAB BLOOD ORDERABLES Final Res ult [facility] [address] [place] [address] * (ABNORMAL) POCT glucose meter (02/01/2024 12:18 PM EST) POCT Glucose 149(H) 74 - 99 mg/dL 02/01/2024 12:26 PM EST [facility] Comment:Accuracy of a glucos e result [...] for testing. Comment 02/01/2024 12:26 PM EST [facility] Stockbroking Dealer ID Casi Sharpe 12:26 PM EST [facility] Device ID [id number] 02/01/2024 12:26 PM EST [facility] Specimen Type POC Capillary 02/01/2024 12:26 PM EST [facility] Blood Capillary blood specimen / Unknown 02/01/2024 12:18 PM EST 02/01/2024 12:26 PM EST us Darrin Griffin MD LAB POINT OF CARE TE ST DOCKED DEVICE UNSOLICITED RESULTS Final Result Performing Organization Address City/[facility]/ZIP Co de Phone Number [facility] [address] [place] [address] * (ABNORMAL) POCT glucose meter (02/01/2024 12:03 [...] for testing. Comment 02/01/2024 12:15 PM EST [facility] Stockbroking Dealer ID Monserrat Wilcox 02/01/2024 12:15 PM EST [facility] Device ID [id number] 02/01/2024 12:15 PM EST [facility] Specimen Type POC Capillary 02/01/2024 12:15 PM EST [facility] Blood Capillary blood specimen / Unknown 02/01/2024 12:03 PM EST 02/01/2024 12:15 PM EST us Darrin Griffin MD LAB POINT OF CARE TE ST DOCKED DEVICE UNSOLICITED RESULTS Final Result Performing Organization Address City/[facility] Co de Phone Number [facility] [address] [place] [address] * (ABNORMAL) POCT glucose meter (02/01/2024 8:27 [...] 02/01/2024 8:29 AM EST [facility] Stockbroking Dealer ID Alma Faulkner 024 8:29 AM EST [facility] Device ID [id number] 02/01/2024 8:29 AM EST [facility] Specimen Type POC Capillary 02/01/2024 8:29 AM EST [facility] Blood Capillary blood specimen / Unknown 02/01/2024 8:27 AM EST 02/01/2024 8:29 AM EST us Darrin Griffin MD LAB POINT OF CARE TE ST DOCKED DEVICE UNSOLICITED RESULTS Final Result [facility] [address] [place] [address] * VAS US Venous Duplex Lower Extremity [...] - 99 mg/dL 02/01/2024 5:33 AM EST [facility] BUN, Plasma 53(H) 7 - 21 mg/dL 02/01/2024 5:33 AM EST [facility] Creatinine, Plasma 2.75(H) 0.70 - 1.20 mg/dL 02/01/2024 5:33 AM EST [facility] BUN/Creatinine Ratio 19 02/01/2024 5:33 AM EST [facility] Sodium, Plasma 138 136 - 145 mmol/L 02/01/2024 5:33 AM EST [facility] Potassium, Plasma 4.3 3.6 - 4.9 mmol/L 02/01/2024 5:33 AM [facility] Chloride, Plasma 99 97 - 107 mmol/L 02/01/2024 5:33 AM EST [facility] CO2, Plasma 26 22 - 29 mmol/L 02/01/2024 5:33 AM EST [facility] Anion Gap 13 6 - 16 mmol/L 02/01/2024 5:33 AM [facility] Total Calcium, Plasma 9.1 8.9 - 10.2 mg/dL 02/01/2024 5:33 AM EST [facility] Total Protein 6.4 6.3 - 7.9 g/dL 02/01/2024 5:33 AM EST [facility] Albumin, Plasma 3.3(L) 3.5 - 5.2 g/dL 02/01/2024 5:33 AM EST [facility] AST, Plasma 39 10 - 50 U/L 02/01/2024 5:33 AM EST [facility] ALT, Plasma 26 10 - 50 U/L 02/01/2024 5:33 AM EST [facility] Alkaline Phosphatase, Plasma 331(H) 40 - 115 U/L 02/01/2024 5:33 AM EST [facility] Total Bilirubin, Plasma 1.0 0.2 - 1.1 mg/dL 02/01/2024 5:33 AM EST [facility] eGFRcr 26.2 mL/min/1.7 3m*2 02/01/2024 5:33 AM EST [facility] Comment:Reported eGFRcr in m L/min/1.73m2 is based the CKD-EPI 2020 equation that does not use a race coefficient. Blood Venous blood specimen / Unknown Venipuncture / Unknown 02/01/2024 4:55 AM EST 02/01/2024 5:05 AM EST us Darrin Griffin MD LAB BLOOD ORDERABLES Final Res ult [facility] [address] [place] [address] * (ABNORMAL) POCT glucose meter (01/31/2024 8:31 PM EST) POCT Glucose 124(H) 74 - 99 mg/dL 01/31/2024 8:33 PM EST [facility] Comment:Accuracy of a glucos e [...] 01/31/2024 8:33 PM EST [facility] Stockbroking Dealer ID Neo Curtis 01/31/2024 8:33 PM EST [facility] Device ID [id number] 01/31/2024 8:33 PM EST [facility] Specimen Type POC Capillary 01/31/2024 8:33 PM EST [facility] Blood Capillary blood specimen / Unknown 01/31/2024 8:31 PM EST 01/31/2024 8:33 PM EST us Darrin Griffin MD LAB POINT OF CARE TE ST DOCKED DEVICE UNSOLICITED RESULTS Final Result Performing Organization Address City/[facility] Co de Phone Number [facility] [address] [place] [address] * (ABNORMAL) POCT glucose meter (01/31/2024 5:29 PM EST) POCT Glucose 172(H) 74 - 99 mg/dL 01/31/2024 5:34 PM EST [facility] Comment:Accuracy of a glucos e result [...] 01/31/2024 5:34 PM EST [facility] Stockbroking Dealer ID Monserrat Wilcox 01/31/2024 5:34 PM EST [facility] Device ID [id number] 01/31/2024 5:34 PM EST [facility] Specimen Type POC Capillary 01/31/2024 5:34 PM EST [facility] Blood Capillary blood specimen / Unknown 01/31/2024 5:29 PM EST 01/31/2024 5:34 PM EST us Darrin Griffin MD LAB POINT OF CARE TE ST DOCKED DEVICE UNSOLICITED RESULTS Final Result [facility] [address] [place] [address] * (ABNORMAL) Basic metabolic panel (01/31/2024 4:44 PM EST) Glucose, Plasma 161(H) 74 - 99 mg/dL 01/31/2024 5:22 PM EST [facility] BUN, Plasma 50(H) 7 - 21 mg/dL 01/31/2024 5:22 PM EST [facility] Creatinine, Plasma 2.78(H) 0.70 - 1.20 mg/dL 01/31/2024 5:22 PM EST [facility] BUN/Creatinine Ratio 18 01/31/2024 5:22 PM EST [facility] Sodium, Plasma 136 136 - 145 mmol/L 01/31/2024 5:22 PM EST [facility] Potassium, Plasma 4.3 3.6 - 4.9 mmol/L 01/31/2024 5:22 PM EST [facility] Chloride, Plasma 98 97 - 107 mmol/L 01/31/2024 5:22 PM EST [facility] CO2, Plasma 27 22 - 29 mmol/L 01/31/2024 5:22 PM EST [facility] Anion Gap 11 6 - 16 mmol/L 01/31/2024 5:22 PM EST [facility] Total Calcium, Plasma 8.9 8.9 - 10.2 mg/dL 01/31/2024 5:22 PM EST [facility] eGFRcr 25.9 mL/min/1.7 3m*2 01/31/2024 5:22 PM EST [facility] Comment:Reported eGFRcr in m L/min/1.73m2 is based the CKD-EPI 2020 equation that does not use a race coefficient. Blood Venous blood specimen / Unknown Venipuncture / Unknown 01/31/2024 4:44 PM EST 01/31/2024 4:52 PM EST us Darrin Griffin MD LAB BLOOD ORDERABLES Final Res ult [facility] [address] [place] [address] * (ABNORMAL) POCT glucose meter (01/31/2024 12:19 [...] 01/31/2024 12:27 PM EST [facility] Stockbroking Dealer ID Monserrat Wilcox 01/31/2024 12:27 PM EST [facility] Device ID [id number] 01/31/2024 12:27 PM EST [facility] Specimen Type POC Capillary 01/31/2024 12:27 PM EST [facility] Blood Capillary blood specimen / Unknown 01/31/2024 12:19 PM EST 01/31/2024 12:27 PM EST Darrin Griffin MD LAB POINT OF CARE TE ST DOCKED DEVICE UNSOLICITED RESULTS Final Result Performing Organization Address City/State/[facility] Co de Phone Number [facility] [address] [place] [address] * (ABNORMAL) POCT glucose meter (01/31/2024 8:30 [...] 01/31/2024 8:38 AM EST [facility] Stockbroking Dealer ID Monserrat Wilcox 01/31/2024 8:38 AM EST [facility] Device ID [id number] 01/31/2024 8:38 AM EST [facility] Specimen Type POC Capillary 01/31/2024 8:38 AM EST [facility] Blood Capillary blood specimen / Unknown 01/31/2024 8:30 AM EST 01/31/2024 8:38 AM EST us Darrin Griffin MD LAB POINT OF CARE TE ST DOCKED DEVICE UNSOLICITED RESULTS Final Result [facility] [address] [place] [id number] * (ABNORMAL) Basic metabolic panel (01/31/2024 7:45 AM EST) Glucose, Plasma 248(H) 74 - 99 mg/dL 01/31/2024 8:37 AM EST [facility] BUN, Plasma 46(H) 7 - 21 mg/dL 01/31/2024 8:37 AM EST [facility] Creatinine, Plasma 2.72(H) 0.70 - 1.20 mg/dL 01/31/2024 8:37 AM EST [facility] BUN/Creatinine Ratio 17 01/31/2024 8:37 AM EST [facility] Sodium, Plasma 134(L) 136 - 145 mmol/L 01/31/2024 8:37 AM EST [facility] Potassium, Plasma 5.1(H) 3.6 - 4.9 mmol/L 01/31/2024 8:37 AM EST [facility] Chloride, Plasma 98 97 - 107 mmol/L 01/31/2024 8:37 AM EST [facility] CO2, Plasma 23 22 - 29 mmol/L 01/31/2024 8:37 AM EST [facility] Anion Gap 13 6 - 16 mmol/L 01/31/2024 8:37 AM EST [facility] Total Calcium, Plasma 8.4(L) 8.9 - 10.2 mg/dL 01/31/2024 8:37 AM EST [facility] eGFRcr 26.6 mL/min/1.7 3m*2 01/31/2024 8:37 AM EST [facility] Comment:Reported eGFRcr in m L/min/1.73m2 is based the CKD-EPI 2020 equation that does not use a race coefficient. Blood Venous blood specimen / Unknown Venipuncture / Unknown 01/31/2024 7:45 AM EST 01/31/2024 8:05 AM EST us Darrin Griffin MD LAB BLOOD ORDERABLES Final Res ult Performing Organization Address City/[facility]/ZIP Co de Phone Number [facility] [address] [place] [address] * (ABNORMAL) POCT glucose meter (01/31/2024 3:27 AM EST) POCT Glucose 212(H) 74 - 99 mg/dL 01/31/2024 3:30 AM EST [facility] Comment:Accuracy of a glucos e result [...] for testing. Comment 01/31/2024 3:30 AM EST [facility] Stockbroking Dealer ID Chrissy Hicks 01/31/2024 3:30 AM EST [facility] Device ID [id number] 01/31/2024 3:30 AM EST [facility] Specimen Type POC Capillary 01/31/2024 3:30 AM EST [facility] Blood Capillary blood specimen / Unknown 01/31/2024 3:27 AM EST 01/31/2024 3:30 AM EST us Darrin Griffin MD LAB POINT OF CARE TE ST DOCKED DEVICE UNSOLICITED RESULTS Final Result Performing Organization Address City/[facility]/ZIP Co de Phone Number [facility] [address] [place] [address] * (ABNORMAL) POCT glucose meter (01/30/2024 7:52 [...] 01/30/2024 7:54 PM EST [facility] Stockbroking Dealer ID Neo Curtis 01/30/2024 7:54 PM EST [facility] Device ID [id number] 01/30/2024 7:54 PM EST [facility] Specimen Type POC Capillary 01/30/2024 7:54 PM EST [facility] Blood Capillary blood specimen / Unknown 01/30/2024 7:52 PM EST 01/30/2024 7:54 PM EST Darrin Griffin MD LAB POINT OF CARE TE ST DOCKED DEVICE UNSOLICITED RESULTS Final Result [facility] [address] [place] [address] * (ABNORMAL) Comprehensive metabolic panel (01/30/2024 7:51 PM EST) Glucose, Plasma 348(H) 74 - 99 mg/dL 01/30/2024 8:52 PM EST [facility] BUN, Plasma 39(H) 7 - 21 mg/dL 01/30/2024 8:52 PM EST [facility] Creatinine, Plasma 2.73(H) 0.70 - 1.20 mg/dL 01/30/2024 8:52 PM EST [facility] BUN/Creatinine Ratio 14 01/30/2024 8:52 PM EST [facility] Sodium, Plasma 133(L) 136 - 145 mmol/L 01/30/2024 8:52 PM EST [facility] Potassium, Plasma 5.8(H) 3.6 - 4.9 mmol/L 01/30/2024 8:52 PM EST [facility] Chloride, Plasma 99 97 - 107 mmol/L 01/30/2024 8:52 PM EST [facility] CO2, Plasma 19(L) 22 - 29 mmol/L 01/30/2024 8:52 PM EST [facility] Anion Gap 15 6 - 16 mmol/L 01/30/2024 8:52 PM EST [facility] Total Calcium, Plasma 8.6(L) 8.9 - 10.2 mg/dL 01/30/2024 8:52 PM EST [facility] Total Protein 6.2(L) 6.3 - 7.9 g/dL 01/30/2024 8:52 PM EST [facility] Albumin, Plasma 3.2(L) 3.5 - 5.2 g/dL 01/30/2024 8:52 PM EST [facility] AST, Plasma 47 10 - 50 U/L 01/30/2024 8:52 PM EST [facility] Comment:Hemolyzed, result ma y be falsely increased. ALT, Plasma 36 10 - 50 U/L 01/30/2024 8:52 PM EST [facility] Alkaline Phosphatase, Plasma 357(H) 40 - 115 U/L 01/30/2024 8:52 PM EST [facility] Total Bilirubin, Plasma 1.5(H) 0.2 - 1.1 mg/dL 01/30/2024 8:52 PM EST [facility] eGFRcr 26.5 mL/min/1.7 3m*2 01/30/2024 8:52 PM EST [facility] Comment:Reported eGFRcr in m L/min/1.73m2 is based the CKD-EPI 2020 equation that does not use a race coefficient. Blood Venous blood specimen / Unknown Venipuncture / Unknown 01/30/2024 7:51 PM EST 01/30/2024 7:58 PM EST us Darrin Griffin MD LAB BLOOD ORDERABLES Final Res ult Performing Organization Address City/[facility]/ZIP Co de Phone Number [facility] [address] [place] [address] * Magnesium (01/30/2024 7:51 PM EST) Magnesium, Plasma 2.1 1.9 - 2.4 mg/dL 01/30/2024 8:52 PM EST [facility] Blood Venous blood specimen / Unknown Venipuncture / Unknown 01/30/2024 7:51 PM EST 01/30/2024 7:58 PM EST us Darrin Griffin MD LAB BLOOD ORDERABLES Final Res ult Performing Organization Address City/[facility]/ZIP Co de Phone Number [facility] [address] [place] [address] * (ABNORMAL) POCT glucose meter (01/30/2024 5:42 [...] for testing. Comment 01/30/2024 5:44 PM EST [facility] Stockbroking Dealer ID Dottie Collazo 01/30/2024 5:44 PM EST [facility] Device ID [id number] 01/30/2024 5:44 PM EST [facility] Specimen Type POC Capillary 01/30/2024 5:44 PM EST [facility] Blood Capillary blood specimen / Unknown 01/30/2024 5:42 PM EST 01/30/2024 5:44 PM EST us Darrin Griffin MD LAB POINT OF CARE TE ST DOCKED DEVICE UNSOLICITED RESULTS Final Result Performing Organization Address City/State/[facility] Co de Phone Number [facility] [address] [place] [address] * (ABNORMAL) Troponin T, High Sensitivity, 2 Hour, Plasma (01/30/2024 1:20 PM EST) [facility] Troponin T, High Sensitivity, 2 Hour 65(H) <19 ng/L 01/30/2024 2:24 PM EST [facility] Troponin Delta 6 <10 ng/L 01/30/2024 2:24 PM EST [facility] Troponin Delta Interpretation Not Significant 01/30/2024 2:24 PM EST [facility] Comment:Not Significant. No acute change in troponin observed between the baseline and 2 hour samples. Blood Venous blood specimen / Unknown Venipuncture / Unknown 01/30/2024 1:20 PM EST 01/30/2024 1:32 PM EST us Carmencita Slaughter MD LAB BLOOD ORDERABLES Final Res ult Performing Organization Address City/[facility]/ZIP Co de Phone Number [facility] [address] [place] [address] * (ABNORMAL) POCT glucose meter (01/30/2024 1:14 PM EST) [facility] POCT Glucose 243(H) 74 - 99 [...] Comment 01/30/2024 1:16 PM EST [facility] Stockbroking Dealer ID Jennifer Goddard 01/30/2024 1:16 PM EST [facility] Device ID [id number] 01/30/2024 1:16 PM EST [facility] Specimen Type POC Capillary 01/30/2024 1:16 PM EST [facility] Blood Capillary blood specimen / Unknown 01/30/2024 1:14 PM EST 01/30/2024 1:16 PM EST us Darrin Griffin MD LAB POINT OF CARE TE ST DOCKED DEVICE UNSOLICITED RESULTS Final Result Performing Organization Address [facility] Co de Phone Number [facility] [address] [place] [address] * (ABNORMAL) Multi Drug Resistance Test (01/30/2024 12:32 PM EST) [facility] Culture Methicillin-Resist ant Staphylococcus aureus(AA) 01/31/2024 12:14 PM EST [facility] Comment:Previously isolated, still present in culture. Swab Both anterior nares / Unknown Non-blood Collection / Unknown 01/30/2024 12:32 PM EST 01/30/2024 12:57 PM EST us Darrin Griffin MD LAB MICROBIOLOGY - GENERAL ORD ERABLES Final Result Performing Organization Address City/[facility]/ZIP Co de Phone Number [facility] [address] [place] [address] * (ABNORMAL) Potassium (01/30/2024 10:32 AM EST) Potassium, Plasma 5.1(H) 3.6 - 4.9 mmol/L 01/30/2024 10:59 AM EST [facility] Blood Venous blood specimen / Unknown Venipuncture / Unknown 01/30/2024 10:32 AM EST 01/30/2024 10:34 AM EST Carmencita Slaughter MD LAB BLOOD ORDERABLES Final Res ult [facility] [address] [place] [address] * (ABNORMAL) Troponin now and 120 min (01/30/2024 10:32 AM EST) Pathologist [facility] Troponin T, High Sensitivity, 0 Hour 71(H) <19 ng/L 01/30/2024 10:59 AM EST [facility] Blood Venous blood specimen / Unknown Venipuncture / Unknown 01/30/2024 10:32 AM EST 01/30/2024 10:34 AM EST Carmencita Slaughter MD LAB BLOOD ORDERABLES Final Res ult [facility] [address] [place] [address] * Light Green Top (01/30/2024 9:55 AM EST) Pathologist [facility] Extra Hold for add-ons 01/30/2024 12:01 PM EST [facility] Comment:Auto resulted. Blood Venous blood specimen / Unknown 01/30/2024 9:55 AM EST 01/30/2024 9:58 AM EST us Carmencita Slaughter MD LAB BLOOD ORDERABLES Final Res ult [facility] [address] [place] [address] * (ABNORMAL) Potassium (01/30/2024 9:55 AM EST) Potassium, Plasma 6.3(H) 3.6 - 4.9 mmol/L 01/30/2024 10:19 AM EST [facility] Comment:Hemolyzed, result ma y be falsely increased. Blood Venous blood specimen / Unknown Venipuncture / Unknown 01/30/2024 9:55 AM EST 01/30/2024 9:57 AM EST us Carmencita Slaughter MD LAB BLOOD ORDERABLES Final Res ult [facility] [address] [place] [address] * XR Chest 1 View (01/30/2024 9:20 [...] Detected Not Detected 01/30/2024 10:18 AM EST [facility] Influenza A Virus PCR Result Not Detected Not Detected 01/30/2024 10:18 AM EST [facility] Influenza B Virus PCR Result Not Detected Not Detected 01/30/2024 10:18 AM EST [facility] Respiratory Syncytial Virus (RSV) PCR Result Not Detected Not Detected 01/30/2024 10:18 AM EST [facility] Swab Nasopharyngeal structure / Unknown Non-blood Collection / Unknown 01/30/2024 9:13 AM EST 01/30/2024 9:[address] [facility] - 01/30/2024 10:18 AM EST This [...] MICROBIOLOGY - GENERAL ORD ERABLES Final Result [facility] [address] [place] [address] * (ABNORMAL) BNP (01/30/2024 9:13 AM EST) N-Terminal, PROBNP, Plasma >70,000(H) 0 - 899 pg/mL 01/30/2024 9:53 AM EST [facility] Blood Venous blood specimen / Unknown Venipuncture / Unknown 01/30/2024 9:13 AM EST 01/30/2024 9:18 AM EST us Carmencita Slaughter MD LAB BLOOD ORDERABLES Final Res ult Performing Organization Address City/[facility]/ZIP Co de Phone Number [facility] [address] [place] [address] * (ABNORMAL) CMP (01/30/2024 9:13 AM EST) Glucose, Plasma 165(H) 74 - 99 mg/dL 01/30/2024 9:43 AM EST [facility] BUN, Plasma 35(H) 7 - 21 mg/dL 01/30/2024 9:43 AM EST [facility] Creatinine, Plasma 2.37(H) 0.70 - 1.20 mg/dL 01/30/2024 9:43 AM EST [facility] BUN/Creatinine Ratio 15 01/30/2024 9:43 AM EST [facility] Sodium, Plasma 133(L) 136 - 145 mmol/L 01/30/2024 9:43 AM EST [facility] Potassium, Plasma 8.2(HH) 3.6 - 4.9 mmol/L 01/30/2024 9:43 AM EST [facility] Comment:Hemolyzed, result ma y be falsely increased. Chloride, Plasma 101 97 - 107 mmol/L 01/30/2024 9:43 AM EST [facility] CO2, Plasma 26 22 - 29 mmol/L 01/30/2024 9:43 AM EST [facility] Anion Gap 6 6 - 16 mmol/L 01/30/2024 9:43 AM EST [facility] Total Calcium, Plasma 8.5(L) 8.9 - 10.2 mg/dL 01/30/2024 9:43 AM EST [facility] Total Protein 7.0 6.3 - 7.9 g/dL 01/30/2024 9:43 AM EST [facility] Albumin, Plasma 3.2(L) 3.5 - 5.2 g/dL 01/30/2024 9:43 AM EST [facility] AST, Plasma 93(H) 10 - 50 U/L 01/30/2024 9:43 AM EST [facility] Comment:Hemolyzed, result ma y be falsely increased. ALT, Plasma 40 10 - 50 U/L 01/30/2024 9:43 AM EST [facility] Comment:Hemolyzed, result ma y be falsely increased or decreased. Alkaline Phosphatase, Plasma 368(H) 40 - 115 U/L 01/30/2024 9:43 AM EST [facility] Comment:Hemolyzed, result ma y be falsely decreased. Total Bilirubin, Plasma 1.8(H) 0.2 - 1.1 mg/dL 01/30/2024 9:43 AM EST [facility] eGFRcr 31.4 mL/min/1.7 3m*2 01/30/2024 9:43 AM EST [facility] Comment:Reported eGFRcr in m L/min/1.73m2 is based the CKD-EPI 2020 equation that does not use a race coefficient. Blood Venous blood specimen / Unknown Venipuncture / Unknown 01/30/2024 9:13 AM EST 01/30/2024 9:18 AM EST us Carmencita Slaughter MD LAB BLOOD ORDERABLES Final Res ult [facility] [address] [place] [address] * (ABNORMAL) CBC w/diff (01/30/2024 9:13 AM EST) WBC Count 3.68(L) 3.70 - 10.30 10*3/uL LAB HEMATOLOGY METHOD 01/30/2024 9:22 AM EST [facility] RBC Count 4.48(L) 4.60 - 6.10 10*6/uL LAB HEMATOLOGY METHOD 01/30/2024 9:22 AM EST [facility] HGB 11.6(L) 13.7 - 17.5 g/dL LAB HEMATOLOGY METHOD 01/30/2024 9:22 AM EST [facility] HCT 37.8(L) 40.0 - 51.0 % LAB HEMATOLOGY METHOD 01/30/2024 9:22 AM EST [facility] Platelet Count 245 155 - 369 10*3/uL LAB HEMATOLOGY METHOD 01/30/2024 9:22 AM EST [facility] MCV 84 79 - 98 fL LAB HEMATOLOGY METHOD 01/30/2024 9:22 AM [facility] MCH 25.9(L) 26.0 - 32.0 pg LAB HEMATOLOGY METHOD 01/30/2024 9:22 AM EST [facility] MCHC 30.7 30.7 - 35.5 g/dL LAB HEMATOLOGY METHOD 01/30/2024 9:22 AM [facility] RDW 19.9(H) 11.5 - 14.5 % LAB HEMATOLOGY METHOD 01/30/2024 9:22 AM [facility] MPV 10.7 8.8 - 12.5 fL LAB HEMATOLOGY METHOD 01/30/2024 9:22 AM [facility] nRBC 0.0 <=0.0 per 100 WBCs LAB HEMATOLOGY METHOD 01/30/2024 9:22 AM [facility] Differential Type Automated LAB HEMATOLOGY METHOD 01/30/2024 9:22 AM [facility] Neutrophils % 76 % LAB HEMATOLOGY METHOD 01/30/2024 9:22 AM [facility] Lymphocytes % 17 % LAB HEMATOLOGY METHOD 01/30/2024 9:22 AM [facility] Monocytes % 4 % LAB HEMATOLOGY METHOD 01/30/2024 9:22 AM [facility] Eosinophils % 2 % LAB HEMATOLOGY METHOD 01/30/2024 9:22 AM [facility] Basophils % 1 % LAB HEMATOLOGY METHOD 01/30/2024 9:22 AM [facility] Immature Granulocytes % 0 % LAB HEMATOLOGY METHOD 01/30/2024 9:22 AM EST [facility] Neutrophils Absolute 2.79 1.60 - 6.10 10*3/uL LAB HEMATOLOGY METHOD 01/30/2024 9:22 AM EST [facility] Lymphocytes Absolute 0.61(L) 1.20 - 3.90 10*3/uL LAB HEMATOLOGY METHOD 01/30/2024 9:22 AM EST [facility] Monocytes Absolute 0.15(L) 0.30 - 0.90 10*3/uL LAB HEMATOLOGY METHOD 01/30/2024 9:22 AM EST [facility] Eosinophils Absolute 0.09 0.00 - 0.50 10*3/uL LAB HEMATOLOGY METHOD 01/30/2024 9:22 AM EST [facility] Basophils Absolute 0.03 0.00 - 0.10 10*3/uL LAB HEMATOLOGY METHOD 01/30/2024 9:22 AM EST [facility] Immature Granulocytes Absolute 0.01 0.00 - 0.06 10*3/uL LAB HEMATOLOGY METHOD 01/30/2024 9:22 AM EST [facility] Blood Venous blood specimen / Unknown Venipuncture / Unknown 01/30/2024 9:13 AM EST 01/30/2024 9:18 AM EST Narrative [facility] - 01/30/2024 9:22 AM EST Therapeutic decision making should be based on absolute values, rather than percentages. us Carmencita Slaughter MD LAB BLOOD ORDERABLES Final Res ult Performing Organization Address City/State/[facility] Co de Phone Number [facility] [address] [place] [address] * EKG now - STAT (adult) (01/30/2024 9:05 AM EST) EKG DIAGNOSIS CLASS Abnormal MUSE ECG Ventricular Rate 84 BPM MUSE ECG Atrial Rate 84 BPM MUSE ECG IL Interval 152 ms MUSE ECG QRSD Interval 120 ms MUSE ECG QT Interval 408 ms MUSE ECG QTC Interval 482 ms MUSE ECG P Edson 51 degrees MUSE ECG R Edson -41 degrees MUSE ECG T Wave Edson 123 degrees MUSE ECG Diagnosis Normal sinus rhythm MUSE ECG Diagnosis Possible Left atrial enlargement MUSE ECG Diagnosis Left axis deviation MUSE ECG Diagnosis Left ventricular hypertrophy with QRS widening ( Uzair product ) MUSE ECG Diagnosis T wave abnormality, consider lateral ischemia MUSE ECG Diagnosis MUSE ECG Diagnosis MUSE ECG Diagnosis Confirmed by Heather Dan ([id number]) on 01/30/2024 4:54:24 PM MUSE ECG 01/30/2024 9:05 AM EST 01/30/2024 4:54 PM EST us Carmencita Slaughter MD ECG ORDERABLES Final Result MUSE ECG * (ABNORMAL) POCT glucose meter (01/30/2024 8:43 AM EST) POCT Glucose 164(H) 74 - 99 mg/dL 01/30/2024 8:45 AM EST [facility] Comment:Accuracy of a glucos e result [...] 01/30/2024 8:45 AM EST [facility] Stockbroking Dealer ID Macrina Roman 8:45 AM EST [facility] Device ID [id number] 01/30/2024 8:45 AM EST [facility] Specimen Type POC Capillary 01/30/2024 8:45 AM EST [facility] Blood Capillary blood specimen / Unknown 01/30/2024 8:43 AM EST 01/30/2024 8:45 AM EST us Generic Provider Poct LAB POINT OF CARE TEST DOCKED DEVICE UNSOLICITED RESULTS Final Result [facility] [address] [place] [address] documented in this encounter Visit Diagnoses Diagnosis [...] 01/30/2024 10:44 PM EST 1 drop Tiotropium [place] Monohydrate (Spiriva Respimat) 2.5 MCG/ACT inhaler 2 [...] 1045, STAT 1015 (Given - Provider: Abby Rider, JAME) bumetanide (Bumex) tablet 2 mg (COMPLETED) [...] (Given - Provider: Charlotte Cooper, JAME) Tiotropium [place] Monohydrate (Spiriva Respimat) 2.5 MCG/ACT inhaler 2 [...] documented as of this encounter Care Teams Set Rider Relationship Specialty Start Date End Date Pcp, [place] [address] PCP - General Family Medicine 01/30/24 documented as of this encounter
--- OUTSIDE RECORDS SUMMARY | 2024-02-24 15:31 | XMS_ITS | Encounter Summary ---
Author Organization [facility] Address [address] [place] [address] Care Team Providers Care Photovoltaic Power Systems Engineer Name Role Phone Erik Hurley MD Primary Care Provider [phone] Encounter Details Date Type Department Care Team [...] place to sleep or slept in a longterm (including now)? No 12/17/2023 CAGE ASSESSMENT Answer [...] drink first t erin in the morning (EYE-PARKER) to steady your nerves or to get [...] Description 03/07/2024 1:40 PM EST Office Visit [facility] [place] [address], [address] [place] [address] Naeem Blunt MD [address] [place] [phone] documented as of this encounter Visit Diagnoses [...] documented as of this encounter Care Teams Photovoltaic Power Systems Engineer Relationship Specialty Start Date End Date Erik Hurley MD [address] [place] [address] PCP - General 06/18/23 01/29/24 documented as of this encounter
--- OUTSIDE RECORDS SUMMARY | 2024-02-24 15:31 | XMS_ITS | Encounter Summary ---
Author Organization [facility] Address [address] [place] [address] Care Team Providers Care Insurance Assistant Name Role Phone Erik Hurley MD Primary Care Provider [phone] Encounter Details Date Type Department Care Team [...] drink first t erin in the morning (EYE-PHOTOGRAPHER AERIAL) to steady your nerves or to get [...] Description 03/07/2024 1:40 PM EST Office Visit [facility] [place] [address] [facility], [address] [place] [address] Naeem Blunt MD [address] [place] [phone] documented as of this encounter Visit Diagnoses [...] as of this encounter Care Teams Insurance Assistant Relationship Specialty Start Date End Date Erik Hurley MD [address] [place] [address] PCP - General 06/18/23 01/29/24 documented as of this encounter
--- OUTSIDE RECORDS SUMMARY | 2024-02-24 15:31 | XMS_ITS | Encounter Summary ---
Author Organization [facility] Address [address] [place] [address] Care Team Providers Care Regional Sales Executive Name Role Phone Erik Hurley MD Primary Care Provider [phone] Encounter Details Date Type Department Care Team [...] slept in a half-way (including now)? No 12/17/2023 CAGE ASSESSMENT Answer [...] drink first t erin in the morning (EYE-INTERNATIONAL SPECIALIST) to steady your nerves or to get [...] Description 03/07/2024 1:40 PM EST Office Visit [facility] [place] [address] [facility] [facility], [address] [place] [address] Naeem Blunt MD [address] [place] [phone] documented as of this encounter Visit Diagnoses Not on filedocumented in this encounter Additional Health Concerns Infection Onset Date Last Indicated Resolved Time MRSA Comment:Positive blood culture 03/03/2019 01/30/2024 Assessment Noted Time A Body Mass Index follow-up plan has been documented for the patient 12/25/2023 10:38 AM EDT documented as of this encounter Care Teams Regional Sales Executive Relationship Specialty Start Date End Date Erik Hurley MD [address] [place] [address] PCP - General 06/18/23 01/29/24 documented as of this encounter
--- OUTSIDE RECORDS SUMMARY | 2024-02-24 15:31 | XMS_ITS | Encounter Summary ---
Author Organization Healthcare Address [address] [place] [address] Care Team Providers Care Senior Statistician Name Role Phone Pcp, No Primary Care Provider Unavailabl e Encounter Details Date Type Department Care Team ([facility] st Contact Info) Description 06/15/2023 Telephone [facility] [place] [address] [facility], [address] [place] [address] Jerel Robertson, DO [address] [place] [address] Social History Tobacco Use Types [...] in a care home (including now)? No 06/16/2023 CAGE ASSESSMENT Answer [...] drink first t erin in the morning (EYE-INSPECTION SUPERVISOR) to steady your nerves or to [...] established care in the clinic with a field test engineer. Enedelia RN * Telephone Encounter - Leah Hall - 06/15/2023 8:23 AM EDT Patient Phone Message Reason for Call: Patient calling to request call back from provider, patient is trying to see if he can get help with ordering a oxygen machine for his house Best contact number and optimal time of day to reach caller: [phone] Note: Please do not reply to this message. Follow-up communication and further actions as a result of this message need to be communicated with the patient directly, if the patient is not active onMyChart. If the patient is active on MyChart, they will receive notification of the communication/outcome via [employer]. documented in this encounter Plan of Treatment Upcoming Encounters Date Type Department Care Team (Late st Contact Info) Description 03/07/2024 1:40 PM EST Office Visit [facility] [place] [address] [facility], [address] [place] [address] Naeem Blunt MD [address] [place] [phone] documented as of this encounter Visit Diagnoses Not on filedocumented in this encounter Additional Health Concerns Infection Onset Date Last Indicated Resolved Time MRSA Comment:Positive blood culture 03/03/2019 01/30/2024 Assessment Noted Time A Body Mass Index follow-up plan has been documented for the patient 06/17/2023 2:37 PM EDT documented as of this encounter Care Teams Senior Statistician Relationship Specialty Start Date End Date Pcp, No [address] [place] [address] PCP - General Family Medicine 06/14/23 06/17/23 documented as of this encounter
--- OUTSIDE RECORDS SUMMARY | 2024-02-24 15:31 | XMS_ITS | Encounter Summary ---
Author Organization Healthcare Address [address] [place] [address] Care Team Providers Care Hcc Coders Name Role Phone Cierra Evans LPN [facility] e Erik Hurley MD Primary Care Provider [phone] Reason for Visit * Reason Comments TCM Call Encounter Details Date Type Department Care Team (Late st Contact Info) Description 06/18/2023 Patient Outreach [facility] [address] [place] [address] Cierra Evans LPN [employer] [place] [address] TCM Call Social History Tobacco Use Types [...] slept in a penitentiary (including now)? No 06/16/2023 CAGE ASSESSMENT Answer [...] drink first t erin in the morning (EYE-HOSPITAL HOUSEKEEPER) to steady your nerves or to get rid of a hangover? 0 02/05/2023 CAGE Questionnaire Score 0 023 Utilities Answer Date Recorded In the past 12 months has th e [employer], gas, oil, or water company threatened to shut off services in your home? No 06/16/2023 Sex and Gender Information Value Date Recorded Sex Assigned at Not on file Legal Sex Male 8:15 PM EDT Gender Identity Not on file Sexual Orientation Not on file documented as of this encounter Miscellaneous Notes * Progress Notes - Evans, Cierra S, PRINTING SIGN MACHINE OPERATOR - 06/18/2023 11:56 AM EDT Admission Date: [...] care resources who initially presented to the [facility] on [facility]14 with chief complaint [...] Description 03/07/2024 1:40 PM EST Office Visit [facility] [place] [address] [facility] [facility], [address] [place] [address] Naeem Blunt MD [address] [place] [address] documented as of this encounter [...] documented as of this encounter Care Teams Hcc Coders Relationship Specialty Start Date End Date Erik Hurley MD [address] [place] [address] PCP - General 06/18/23 01/29/24 Cierra Evans LPN [employer] [place] [address] TCM Nurse 06/18/23 06/18/23 documented as of this encounter
--- OUTSIDE RECORDS SUMMARY | 2024-02-24 15:31 | XMS_ITS | Encounter Summary ---
Author Organization [facility] Address [address] [place] [id number] Care Team Providers Care Wood Milling Machine Tender Name Role Phone Pcp, No Primary Care Provider Cierra Rutledge LPN Unavailable Erik Plunkett MD Primary Care Provider [phone] Reason for Visit * Reason Onset Date Comments HCN Clinical Concern/Question 06/14/2023 Encounter Details Date Type Department Care Team ([facility] st Contact Info) Description 06/14/2023 Telephone [facility] [place] [address] [facility], [address] [place] [address] Harlan Ricketts MD [address] [place] [phone] HCN Clinical Concern/Question Social History Tobacco [...] drink first t erin in the morning (EYE-ABORIGINAL EDUCATION TEACHER) to steady your nerves or to get rid of a hangover? 0 02/05/2023 CAGE Questionnaire Score 0 023 Utilities Answer Date Recorded In the past 12 months has th e [employer], gas, oil, or water company threatened to [...] concentrator for home use. Best contact number: [phone] Optimal time of day to reach caller: [...] Description 03/07/2024 1:40 PM EST Office Visit [facility] [place] [address] [facility], [address] [place] [address] Naeem Blunt MD [address] [place] [address] documented as of this encounter [...] documented as of this encounter Care Teams Wood Milling Machine Tender Relationship Specialty Start Date End Date Pcp, No [address] [place] [address] PCP - General Family Medicine 06/14/23 06/17/23 Erik Hurley MD [address] [place] [address] PCP - General 06/18/23 01/29/24 Cierra Evans LPN [employer] [place] [address] TCM Nurse 06/18/23 06/18/23 documented as of this encounter
--- OUTSIDE RECORDS SUMMARY | 2024-02-24 15:31 | XMS_ITS | Encounter Summary ---
Author Organization [facility] Address [address] [place] [address] Care Team Providers Care Casino Supervisor Name Role Phone Pcp, No Primary Care Provider Cierra Rutledge LPN Unavailable Erik Plunkett MD Primary Care Provider [phone] Encounter Details Date Type Department Care Team (Late st Contact Info) Description 06/15/2023 Orders Only External Location [address] [place] [phone] Provider, External Social History Tobacco Use Types [...] place to sleep or slept in a intermediate (including now)? No 06/16/2023 CAGE ASSESSMENT Answer [...] drink first t erin in the morning (EYE-REGISTERED NURSES) to steady your nerves or to get [...] Description 03/07/2024 1:40 PM EST Office Visit [facility] [place] [address] [facility], [address] [place] [phone] Naeem Blunt MD [address] [place] [address] documented as of this encounter [...] documented as of this encounter Care Teams Casino Supervisor Relationship Specialty Start Date End Date Pcp, No [address] [place] [address] PCP - General Family Medicine 06/14/23 06/17/23 Erik Hurley MD [address] [place] [address] PCP - General 06/18/23 01/29/24 Cierra Evans LPN [employer] [place] [address] TCM Nurse 06/18/23 06/18/23 documented as of this encounter
--- OUTSIDE RECORDS SUMMARY | 2024-02-24 15:31 | XMS_ITS | Encounter Summary ---
Author Organization [facility] Address [address] [place] [address] Care Team Providers Care Tire Beader Maker Name Role Phone Pcp, No Primary Care [...] drink first t erin in the morning ([employer] SAL[employer] CONSULTANT) to steady your nerves or to get [...] Upcoming Encounters Date Type Department Care Team ([facility] st Contact Info) Description 03/07/2024 1:40 PM EST Office Visit [facility] [place] [address], [address] [place] [address] Naeem Blunt MD [address] [place] [address] documented as of this encounter Visit Diagnoses Not on filedocumented in this encounter Additional Health Concerns Infection Onset Date Last Indicated Resolved Time MRSA Comment:Positive blood culture 03/03/2019 01/30/2024 Respiratory Rule-Out 06/15/2023 06/16/2023 024 6:08 AM EDT Assessment Noted Time A Body Mass Index follow-up plan has been documented for the patient 06/17/2023 2:37 PM EDT documented as of this encounter Care Teams Tire Beader Maker Relationship Specialty Start Date End Date Pcp, [place] [address] PCP - General Family Medicine 06/14/23 06/17/23 documented as of this encounter
--- OUTSIDE RECORDS SUMMARY | 2024-02-24 15:31 | XMS_ITS | Encounter Summary ---
Author Organization [facility] Address [address] [place] [address] Care Team Providers Care Audit Machine Operator Name Role Phone Erik Hurley MD Primary Care Provider Reason for Referral * Home Health (Routine) - Authorized Specialty Diagnoses / Procedures Referred By Neno noel Referred To Contact Home Health Services Diagnoses Acute decompensated heart failure (CMS/HCC) Jonny Broussard MD [address] [place] [address] Phone: tel: fax: Referral ID Status Reason Start Date Expiration Date Visits Requested Visits Authorized [id number] Authorized Consult and Treat 12/25/2023 06/25/2025 999 999 Reason for Visit * Reason Comments Swelling * Auth/Cert (Routine) Specialty Diagnoses / Procedures Referred By Neno noel Referred To Contact Diagnoses Acute decompensated heart failure (CMS/HCC) Tian Mattson MD [address] [place] [address] Phone: tel: fax: [facility] [address] [place] [address] Phone: tel: Referral ID Status Reason Start Date Expiration Date Visits Re quested Visits Authorized [id number] 1 1 Encounter Details Date Type Department Care Team (Latest Contact Info) Description 12/16/2023 5:50 PM EDT - 12/25/2023 2:06 PM EDT Hospital Encounter [facility] [address] [place] [address] Carmencita Slaughter MD [address] [place] [address] Jakob Phipps MD [address] [place] [address] Tian Mattson MD [address] [place] [address] Jonny Broussard MD [address] [place] [address] Acute on chronic systolic congestive [...] slept in a fdc (including now)? 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 0 02/05/2023 CAGE Questionnaire Score 0 023 Utilities Answer Date Recorded In the past 12 months has th e Probiodrug, gas, oil, or water company threatened to [...] with our Transitions of Care clinic at [facility]. If you do not hear about your appointment by Wednesday, please call the [facility] at [phone] Call your Primary Care Provider/Return to the [...] swallow. 13 g 2 06/17/2023 4 Umeclidinium Sebastian (Incruse Ellipta) 62.5 MCG/ACT aerosol powder Inhale [...] Address: Erik Hurley MD [address] [facility] [address] Referring provider name and address: No referring [...] discharge clinic. More recently, patient presented to [facility] with symptoms of acute heart failure exacerbation. Was transferred to [facility] from the facility. Was admitted at [facility] between 10/28 through 11/07 of this year. As per [facility] notes, admitted to [facility] initially for heart failure exacerbation and upon further evaluation had an EF of 20-25% was transferred to our facility for AICD evaluation . At [facility], pt was noted to have (1) EF [...] 62.5 MCG/ACT aerosol powder Generic drug: Umeclidinium Sebastian Inhale 1 Inhalation 1 (one) time each [...] Your Medications These medications were sent to [facility] - [place], [place] - [address] [facility] [address] bumetanide 2 MG tablet clopidogrel 75 MG [...] with our Transitions of Care clinic at [facility]. If you do not hear about your appointment by Wednesday, please call the [facility] at [phone] Call your Primary Care Provider/Return to the [...] heart failure, most recently in October at [facility]. He was discharged home from that admission [...] from the original note were not included. [id number] Clopidogrel Brand Name(s): Plavix??; also available generically [...] doctor or pharmacist will give you the customer account specialist's patient information sheet (Medication Guide) when you begin treatment with clopidogrel and each time you refill your prescription. Read the information carefully and ask your doctor or pharmacist if you have any questions. You can also visit the Food and Drug Administration (FDA) website (https://www.fda.gov/Drugs/DrugSafety/yhg051092.htm) or the customer account specialist's website to obtain the Medication Guide. Talk [...] of all of the prescription and nonprescription (faiw-vww-iknjgjd) medicines you are taking, as well as [...] or pharmacist about specific clinical use. The [employer] represents that the information provided hereunder was formulated with a reasonable standard of care, and in conformity with professional standards in the field. The [employer] makes no representations or warranties, express or implied, including, but not limited to, any implied warranty of merchantability and/or fitness for a particular purpose, with respect to such information and specifically disclaims all such warranties. Users are advised that decisions regarding drug therapy are complex medical decisions requiring the independent, informed decision of an appropriate health residential care officer, and the information is provided for informational purposes only. The entire monograph for a drug should be reviewed for a thorough understanding of the drug's actions, uses and side effects. The [employer] does not endorse or recommend the use of any drug.The information is not a substitute for medical care. AHFS?? Patient Medication Information?. ?? Copyright, 2023. The [employer]??, [address], [address], [place], [place]. All Rights Reserved. Duplication for commercial use must be authorized by [facility]. Selected Revisions: September 16, 2023. AHFS?? Patient Medication Information?. ?? Copyright, 2023 * Gabbi Starks - Tamara Horne RN - 12/25/2023 10:31 AM EDT Images from the original note were not included. [id number] Dapagliflozin Brand Name(s): Farxiga??, Qtern?? (as a [...] doctor or pharmacist will give you the customer account specialist's patient information sheet (Medication Guide) when you begin treatment with dapagliflozin and each time you refill your prescription. Read the information carefully and ask your doctor or pharmacist if you have any questions. You can also visit the Food and Drug Administration (FDA) website (https://www.fda.gov/Drugs/DrugSafety/kte915394.htm) to obtain the Medication Guide. Are there [...] of all of the prescription and nonprescription (mibh-meg-cjdhnbr) medicines you are taking, as well as [...] or pharmacist about specific clinical use. The [employer] represents that the information provided hereunder was formulated with a reasonable standard of care, and in conformity with professional standards in the field. The [employer] makes no representations or warranties, express or implied, including, but not limited to, any implied warranty of merchantability and/or fitness for a particular purpose, with respect to such information and specifically disclaims all such warranties. Users are advised that decisions regarding drug therapy are complex medical decisions requiring the independent, informed decision of an appropriate health residential care officer, and the information is provided for informational purposes only. The entire monograph for a drug should be reviewed for a thorough understanding of the drug's actions, uses and side effects. The [employer] does not endorse or recommend the use of any drug.The information is not a substitute for medical care. AHFS?? Patient Medication Information?. ?? Copyright, 2023. The [employer]??, [address], [address], [place], [place]. All Rights Reserved. Duplication for commercial use must be authorized by [facility]. Selected Revisions: May 13, 2023. AHFS?? Patient Medication Information?. ?? Copyright, 2023 * Gabbi Starks - Tamara Horne RN - 12/25/2023 10:31 AM EDT Images from the original note were not included. [id number] Bumetanide Brand Name(s): Bumex??; also available generically [...] as amikacin, gentamicin (Garamycin), or tobramycin (Bethkis, Lew); corticosteroids (e.g., prednisone), digoxin (Lanoxin); indomethacin (Indocin, [...] of all of the prescription and nonprescription (hsgj-mrq-izqeifl) medicines you are taking, as well as [...] or pharmacist about specific clinical use. The [employer] represents that the information provided hereunder was formulated with a reasonable standard of care, and in conformity with professional standards in the field. The [employer] makes no representations or warranties, express or implied, including, but not limited to, any implied warranty of merchantability and/or fitness for a particular purpose, with respect to such information and specifically disclaims all such warranties. Users are advised that decisions regarding drug therapy are complex medical decisions requiring the independent, informed decision of an appropriate health residential care officer, and the information is provided for informational purposes only. The entire monograph for a drug should be reviewed for a thorough understanding of the drug's actions, uses and side effects. The [employer] does not endorse or recommend the use of any drug.The information is not a substitute for medical care. AHFS?? Patient Medication Information?. ?? Copyright, 2023. The [employer]??, [address], [address], [place], [place]. All Rights Reserved. Duplication for commercial use must be authorized by [facility]. Selected Revisions: January 10, 2017. AHFS?? Patient Medication Information?. ?? Copyright, 2023 * Gabbi Starks - Tamara Horne RN - 12/25/2023 10:31 AM EDT Images from the original note were not included. [address] Discharge Instructions: Taking Diuretics Your healthcare provider [...] any other medicines, including herbal remedies or ebhs-xia-mjdxrxt medicines. ?? Plan your activities in advance [...] Palpitations Last Reviewed Date: 2021 00:00:00 ?? 2119-7871 [employer]. All rights reserved. This information is not [...] discharge clinic. More recently, patient presented to [facility] with symptoms of acute heart failure exacerbation. Was transferred to [facility] from the facility. Was admitted at [facility] between 10/28 through 11/07 of this year. As per [facility] notes, admitted to [facility] initially for heart failure exacerbation and upon further evaluation had an EF of 20-25% was transferred to our facility for AICD evaluation . At [facility], pt was noted to have (1) EF [...] SOB and scrotal edema. Subsequently admitted to [facility] for ADHF. #Acute on chronic decompensated HF 2/2 ICM #AHRF - NYHA III, Stage D - Recent admission to [facility] with ADHF, TTE at facility with EF 15%, concern for aortic insufficiency- discharged on life vest although he has apparently lost this - On Toprol 75 mg daily, Isordil 10 mg TID, Hydralazine 10 mg daily with Bumex 1mg BID day before discharge from [facility]. Discharged med- rec unclear. Pt states he is taking meds consistently - Reports worsening SOB post discharge, CXR [place] signs [place] [address], Trops flat, increasing O2 req ED- 4l via NC (on 2l outpatient), clinical signs of volume on exam - Was seen by EP at [facility], lost life vest- plan for outpatient AICD [...] on lantus 10units HS and SSI at [facility] - A1C 6.6 in 06/19, now [...] Heparin Code Status: Full Dispo: Admit to [facility]. Robert Nevarez MD, PGY-1 Internal Medicine 12/24/2023 [...] Note Robert Hurley 58 y.o. male CSN: [id number] Room/Bed 674/674B Nutrition evaluation type: follow-up Reason for evaluation: Hospital course: 58 y.o. male with PMH significant for HFrEF, suspected COPD, CAMACHO cirrhosis, DM2, CKD4, prior L AKA, who presented to ED on 12/15 with worsening SOB and scrotal edema. Subsequently admitted to [facility] for ADHF. 12/23: Pt with ongoing scrotal [...] OF STENT N/A Cath Stent Placement from [facility] CHOLECYSTECTOMY N/A Cholecystectomy from [facility] Social history: Smoker Additional comments: Other staff [...] 26.72 Weight Evaluation: Obese-Class 1 (BMI 30-34.9) [place] Body Weight (kg): 72 (adjusted for AKA) Percent [place] Body Weight: 124 Adjusted Body Weight (kg): [...] Kcal Provided: 2520 Kcal Needs Based On: [place] weight (72 kg) Metabolic Cart Study Results: Current Nutrition Intake: Diet Supplements: Boost Glucose Control, Jonathan Packet (BGC ordered TID; Jonathan ordered BID) Diet Order: Adult Diet Diet Texture: Regular Adult Carbohydrate Restriction: Consistent CHO 3 (2871-2495 Krzysztof, 95 g/meal) Adult Sodium Restriction: (-) Fat Restriction: Cardiac Electrolyte Restriction: Low potassium Adult Fluid Restriction / 24 hr: 2000 ml fluid Percent Meals Eaten (%): 85% average of last 12 intakes documented from 12/19-12/23 Diet Experience and Nutrition History: Diet Education Provided: Will monitor Pertinent home medications: Noted Faith needs: None noted Nutrition Focused Physical Exam: [...] Level of Mobility Ambulatory- household only Mobility [place] Independent gait with device History of Falls [...] to return to [place]. Visitors Present No Commercial Portfolio Manager (if applicable) OBJECTIVE PAIN Pt reports sacral [...] most limited by generalized weakness. Level of [place] Adaptive Equipment Utilized Interventions Feeding Grooming SBA [...] Management Community Re-Entry BED MOBILITY Level of [place] Physical/Non- physical Assist Adaptive Equipment Utilized Rolling/ Turning Stand-by assist Verbal Cues Bed rails Scooting/ Bridging Contact guard Supervision, Verbal Cues, Minimal cues Bed rails Supine to Sit Minimum assist (75% patient's effort) Verbal Cues, Set-up required, HOB elevated Bed rails Sit to Supine Contact guard Supervision, Verbal Cues, HOB elevated Bed rails TRANSFERS Level of [place] Physical/Non- physical Assist Adaptive Equipment Utilized Sit [...] Note reviewed and approved by music therapy diversity intern supervisor fleshing. * Progress Notes - Robert Nevarez MD - 12/23/2023 11:34 AM EDT Images from the original note were not included. INPATIENT CARDIOLOGY ([facility]) DAILY PROGRESS NOTE SUBJECTIVE NAEO. Patient states [...] SOB and scrotal edema. Subsequently admitted to [facility] for ADHF. #Acute on chronic decompensated HF 2/2 ICM #AHRF - NYHA III, Stage D - Recent admission to [facility] with ADHF, TTE at facility with EF 15%, concern for aortic insufficiency- discharged on life vest although he has apparently lost this - On Toprol 75 mg daily, Isordil 10 mg TID, Hydralazine 10 mg daily with Bumex 1mg BID day before discharge from [facility]. Discharged med- rec unclear. Pt states he is taking meds consistently - Reports worsening SOB post discharge, CXR with signs [place] [address], Trops flat, increasing O2 req ED- 4l via NC (on 2l outpatient), clinical signs of volume on exam - Was seen by EP at [facility], lost life vest- plan for outpatient AICD [...] on lantus 10units HS and SSI at [facility] - A1C 6.6 in 06/19, now [...] Note reviewed and approved by music therapy diversity intern supervisor fleshing. * Care Plan - Lai Billingsley RN [...] SOB and scrotal edema. Subsequently admitted to [facility] for ADHF. # Acute on chronic decompensated HF 2/2 ICM # AHRF - NYHA III, Stage D - Recent admission to [facility] with ADHF, TTE at facility with EF 15%, concern for aortic insufficiency- discharged on life vest although he has apparently lost this - On Toprol 75 mg daily, Isordil 10 mg TID, Hydralazine 10 mg daily with Bumex 1mg BID day before discharge from [facility]. Discharged med- rec unclear. 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 Right buttocks intact and pink however left [...] SOB and scrotal edema. Subsequently admitted to [facility] for ADHF. # Acute on chronic decompensated [...] signs of volume, [place] [address], Trops flat, increasing O2 req ED- 4l via NC (on 2l outpatient), clinical signs of volume on exam - Was seen by EP at [facility], lost life vest- plan for outpatient AICD [...] on lantus 10units HS and SSI at [facility] - A1C 6.6 in 06/19, now [...] original note were not included. INPATIENT CARDIOLOGY ([facility]) DAILY PROGRESS NOTE SUBJECTIVE NAEO. Patient does [...] SOB and scrotal edema. Subsequently admitted to [facility] for ADHF. # Acute on chronic decompensated HF presumed ICM # HFrEF of unclear etiology # AHRF - NYHA III, Stage D - Recent admission to [facility] with ADHF, TTE at facility with EF 15%, concern for aortic insufficiency- discharged on life vest although he has apparently lost this - On Toprol 75 mg daily, Isordil 10 mg TID, Hydralazine 10 mg daily with Bumex 1mg BID day before discharge from [facility]. Discharged med- rec unclear. Pt states he is taking meds consistently - Reports worsening SOB post discharge, CXR [place] signs [place], [place] [address], Trops flat, increasing O2 req ED- 4l via NC (on 2l outpatient), clinical signs of volume on exam - Was seen by EP at [facility], lost life vest- plan for outpatient AICD [...] on lantus 10units HS and SSI at [facility] - A1C 6.6 in 06/19, now [...] SOB and scrotal edema. Subsequently admitted to [facility] for ADHF. # Acute on chronic decompensated HF presumed ICM # HFrEF of unclear etiology # AHRF - NYHA III, Stage D - Recent admission to [facility] with ADHF, TTE at facility with EF 15%, concern for aortic insufficiency- discharged on life vest although he has apparently lost this - On Toprol 75 mg daily, Isordil 10 mg TID, Hydralazine 10 mg daily with Bumex 1mg BID day before discharge from [facility]. Discharged med- rec unclear. Pt states he is taking meds consistently - Reports worsening SOB post discharge, CXR [place] signs [place], [place] [address], Trops flat, increasing O2 req ED- 4l via NC (on 2l outpatient), clinical signs of volume on exam - Was seen by EP at [facility], lost life vest- plan for outpatient AICD [...] on lantus 10units HS and SSI at [facility] - A1C 6.6 in 06/19, now [...] SOB and scrotal edema. Subsequently admitted to [facility] for ADHF. # Acute on chronic decompensated HF presumed ICM # HFrEF of unclear etiology # AHRF - NYHA III, Stage D - Recent admission to [facility] with ADHF, TTE at facility with EF 15%, concern for aortic insufficiency- discharged on life vest although he has apparently lost this - On Toprol 75 mg daily, Isordil 10 mg TID, Hydralazine 10 mg daily with Bumex 1mg BID day before discharge from [facility]. Discharged med- rec unclear. Pt states he is taking meds consistently - Reports worsening SOB post discharge, CXR [place] signs [place], [place] [address], Trops flat, increasing O2 req ED- 4l via NC (on 2l outpatient), clinical signs of volume on exam - Was seen by EP at [facility], lost life vest- plan for outpatient AICD [...] on lantus 10units HS and SSI at [facility] - A1C 6.6 in 06/19, now [...] Note Robert Hurley 58 y.o. male CSN: [id number] Admission: 12/16/2023 5:50 PM Primary Problem: Acute [...] Note Robert Hurley 58 y.o. male CSN: [id number] Room/Bed 674/674B Nutrition evaluation type: assessment Reason for evaluation: nurse consult - burn/pressure injury/non-healing wound, poor appetite Hospital course: 58 y.o. male with PMH significant for HFrEF, suspected COPD, CAMACHO cirrhosis, DM2, CKD4, prior L AKA, who presented to ED on 12/15 with worsening SOB and scrotal edema. Subsequently admitted to [facility] for ADHF. Past medical/ surgical history: Past [...] OF STENT N/A Cath Stent Placement from [facility] CHOLECYSTECTOMY N/A Cholecystectomy from [facility] Social history: Smoker Additional comments: Other staff [...] 30.91 Weight Evaluation: Obese-Class 1 (BMI 30-34.9) [place] Body Weight (kg): 72 (adjusted for AKA) Percent [place] Body Weight: 143 Adjusted Body Weight (kg): [...] Estimated Needs: Kcal/ K-35 (cirrhosis) Kcal Provided: 2532-4186 Kcal Needs Based On: Adjusted weight (79.8 kg) Metabolic Cart Study Results: Current Nutrition Intake: Diet Supplements: None Diet Order: Adult Diet Diet Texture: Regular Adult Carbohydrate Restriction: Consistent CHO 3 (4860-1100 Krzysztof, 95 g/meal) Adult Sodium Restriction: 2,000 mg Na Fat Restriction: Cardiac Adult Fluid Restriction / 24 hr: 2000 ml fluid Percent Meals Eaten (%): 75% of last 2 intakes documented from 12/16 Diet Experience and Nutrition History: Diet Education Provided: Will monitor Pertinent home medications: Noted Faith needs: None noted Nutrition Focused Physical Exam: [...] Note Robert Hurley 58 y.o. male CSN: [id number] Admission: 12/16/2023 5:50 PM Primary Problem: Acute decompensated heart failure (CMS/HCC) Junior Programmer Analyst reviewed chart and spoke with patient to complete this Initial Case Management Assessment. PCP: Erik Hurley MD Emergency Contact: Extended Emergency Contact Information Primary Emergency Contact: Saurabh Hurley Mobile Relation: Other Preferred language: Kazakh Commercial Portfolio Manager needed? No Insurance: Primary Visit Coverage Payer Plan Sponsor Code Group Number Group Name MEDICARE MEDICARE A & B Primary Visit Coverage Subscriber Subscriber ID Subscriber Name Subscriber [facility] Subscriber Address [id number] ROBERT HURLEY JR [id number] [place], [place] [id number] Secondary Visit Coverage Payer Plan Sponsor Code Group Number Group Name [place]AD[place] Secondary Visit Coverage Subscriber Subscriber ID Subscriber Name Subscriber [facility] Subscriber Address [id number] ROBERT HURLEY [id number] [place] [id number] Patient information: Primary Caregiver: Self Support System: Immediate family, Extended family Daily Living Activities: Functional Status: Independent Living Arrangements: Alone Type of Residence: Private residence, Single Level [address] [address] Current DME: Equipment Currently Used at Home: [...] Other(Comment) (Medicaid transport) Living Will/Advance Directive/Power of Hvac Sheet Metal Installer Helper /Guardian: Advance Directive: Patient would not like information Information Provided on Healthcare Directives: No Pre-existing DNR/DNI Order: No Patient Requests Assistance: No Additional Comments: Cm spoke to patient at bedside about Cm role in discharge planning. Cm verified Emergency contact and patient address as [address] Patient is independent with ADLs prior to admission. Patient denies use of any HH, DME, dialysis but uses home oxygen at night prior to admission.Patient lives alone and has family/ friends that are agreeable and able to provide support if needed . Patient has Medicare A and B/ Medicaid insurance and has prescription coverage. Patient pharmacy is [facility] in [place]. Medicaid transport home will need to be arranged when medically ready for discharge. Cm will follow. No RN CM/SW needs identified. Will continue to follow and assist. Patient was agreeable to answer SDND questions and no help is needed at [...] SOB and scrotal edema. Subsequently admitted to [facility] for ADHF. # Acute on chronic decompensated HF presumed ICM # HFrEF of unclear etiology # AHRF - NYHA III, Stage D - Recent admission to [facility] with ADHF, TTE at facility with EF 15%, concern for aortic insufficiency- discharged on life vest although he has apparently lost this - On Toprol 75 mg daily, Isordil 10 mg TID, Hydralazine 10 mg daily with Bumex 1mg BID day before discharge from [facility]. Discharged med- rec unclear. Pt states he is taking meds consistently - Reports worsening SOB post discharge, CXR [place] [address], [place] flat, increasing O2 req ED- 4l via [place] (on 2l outpatient), clinical signs of volume on exam - Was seen by EP at [facility], lost life vest- plan for outpatient AICD [...] on lantus 10units HS and SSI at [facility] - A1C 6.6 in 06/19 PLAN: [...] Level of Mobility: Ambulatory- household only Mobility [place]: Independent gait with device History of Falls: [...] pain. Reports requiring significant physical assist from chief of staff doctor to turn in bed. Standardized Assessments Standardized Assessments Standardized Assessments: [facility] 6-Clicks Mobility Assessment [facility] 6-Clicks Mobility Assessment Difficulty patient has turning [...] climbing 3-5 steps with a railing?: Unable [facility] 6-Clicks Mobility Assessment Total : 8 Assessment [...] for work-up of Acute decompensated heart failure (CMS/[facility]). Problem List Active Hospital Problems Diagnosis Date [...] Level of Mobility: Ambulatory- household only Mobility [place]: Independent gait with device History of Falls: [...] discharge clinic. -More recently, patient presented to [facility] with symptoms of acute heart failure exacerbation. Was transferred to [facility] from the facility. Was admitted at [facility] between 2 through 11/07 of this year. As per [facility] notes, admitted to [facility] initially for heart failure exacerbation and upon further evaluation had an EF of 2024% was transferred to our facility for AICD evaluation . At [facility], pt was noted to have (1) EF [...] OF STENT N/A Cath Stent Placement from [facility] CHOLECYSTECTOMY N/A Cholecystectomy from [facility] Family History family history includes Conversions - [...] 6 Units, Subcutaneous, 3 times daily Umeclidinium Sebastian (Incruse Ellipta) 62.5 MCG/ACT aerosol powder 1 [...] SOB and scrotal edema. Subsequently admitted to [facility] for ADHF. # Acute on chronic decompensated HF presumed ICM # HFrEF of unclear etiology # AHRF - NYHA III, Stage D - recent admission to [facility] with ADHF, TTE at facility with EF 15%, concern for aortic insufficiency- discharged on life vest - on Toprol 75 mg daily, Isordil 10 mg TID, Hydralazine 10 mg daily with Bumex 1mg BID day before discharge from [facility]. Discharged med- rec unclear. Pt states he is taking meds consistently - reports worsening SOB post discharge, CXR [place] signs [place] [address], [place] flat, increasing O2 req ED- 4l via [place] (on 2l outpatient), clinical signs of volume on exam - was seen by EP at [facility], lost life vest- plan for outpatient AICD [...] on lantus 10units HS and SSI at [facility] - A1C 6.6 in 06/19 P/ [...] edema. The patient was recently admitted to [facility] and found to have an EF of 20-25% he was then transferred to [facility] with a repeated an echo and [...] alert. Psychiatric: Mood and Affect: Mood normal. Ong Coma Scale Score: 15 ED Course & [...] dermatitis present. Differential Diagnosis: Heart failure exacerbation, ACS/TX, pulmonary edema, pleural effusion, pneumonia, spontaneous bacterial peritonitis, others In order to fully explore the differential diagnosis the following treatments and tests were ordered: All Other Orders Ordered Status Ordering Provider 12/17/23 0049 Basic metabolic panel Morning draw Order ID Start Status Ordering Provider [id number] 12/18/23 0400 Acknowledged KALEKA, KULTAJ 12/19/23 0400 [...] draw Order ID Start Status Ordering Provider [id number] 12/18/23 0400 Acknowledged KALEKA, KULTAJ 12/19/23 0400 [...] draw Order ID Start Status Ordering Provider [id number] 12/18/23 0400 Acknowledged KALEKA, KULTAJ 12/19/23 0400 [...] draw Order ID Start Status Ordering Provider [id number] 12/18/23 0400 Canceled KALEKA, KULTAJ 12/19/23 0400 [...] air. Order ID Start Status Ordering Provider [id number] 12/17/23 0050 Completed MARCIO SCRUGGS [id number] 12/17/23 08 Completed CONSUELOEKAMAIRAABaljeet [id number] 12/17/231999 Completed CONSUELOMARCIO TREVINO [id number] 12/18/23 0800 Acknowledged CONSUELOEKALAURALTAJ 12/18/231999 Scheduled KALEKALAURALTAJ [...] beats per minute, borderline left axis, no MI prolongation, narrow QRS, no QTC prolongation. There [...] None Disposition Admit Admitting/Attending Physician: TIAN MATTSON [[id number]] Provider Care Team: CAR FLOOR/OBSERVATION [[id number]] Are [...] Description 03/07/2024 1:40 PM EST Office Visit [facility] [place] [address] [place] [address] Naeem Blunt MD [address] [place] [address] Scheduled Referrals Name Type Priority Associated Diagnoses Orde r Schedule Discharge Ambulatory referral to [facility] Outpatient Referral Routine Acute decompensated heart failure [...] UNSOLICITED RESULTS Routine 12/16/2023 6:00 PM EDT [facility] ED POCUS PROCDOC Routine 12/16/2023 5:49 PM EDT documented in this encounter Results * (ABNORMAL) POCT glucose meter (12/25/2023 9:10 AM EDT) POCT Glucose 135(H) 74 - 99 mg/dL 12/25/2023 9:12 AM EDT [facility] Comment:Accuracy of a glucos e result [...] for testing. Comment 12/25/2023 9:12 AM EDT [facility] Hog Dropper ID Dottie Uriarte 12/25/2023 9:12 AM EDT [facility] Device ID [id number] 12/25/2023 9:12 AM EDT [facility] Specimen Type POC Capillary 12/25/2023 9:12 AM EDT [facility] Blood Capillary blood specimen / Unknown 12/25/2023 9:10 AM EDT 12/25/2023 9:12 AM EDT us Jonny Broussard MD LAB POINT OF CARE TE ST DOCKED DEVICE UNSOLICITED RESULTS Final Result [facility] [address] [place] [address] * (ABNORMAL) CBC and differential (12/25/2023 3:08 AM EDT) WBC Count 5.32 3.70 - 10.30 10*3/uL LAB HEMATOLOGY METHOD 12/25/2023 4:[address] [facility] RBC Count 3.88(L) 4.60 - 6.10 10*6/uL LAB HEMATOLOGY METHOD 12/25/2023 4:[address] [facility] HGB 9.5(L) 13.7 - 17.5 g/dL LAB HEMATOLOGY METHOD 12/25/2023 4:[address] [facility] HCT 31.6(L) 40.0 - 51.0 % LAB HEMATOLOGY METHOD 12/25/2023 4:[address] [facility] Platelet Count 211 155 - 369 10*3/uL LAB HEMATOLOGY METHOD 12/25/2023 4:[address] [facility] MCV 81 79 - 98 fL LAB HEMATOLOGY METHOD 12/25/2023 4:[address] [facility] MCH 24.5(L) 26.0 - 32.0 pg LAB HEMATOLOGY METHOD 12/25/2023 4:[address] [facility] MCHC 30.1(L) 30.7 - 35.5 g/dL LAB HEMATOLOGY METHOD 12/25/2023 4:[address] [facility] RDW 18.6(H) 11.5 - 14.5 % LAB HEMATOLOGY METHOD 12/25/2023 4:[address] [facility] MPV 11.1 8.8 - 12.5 fL LAB HEMATOLOGY METHOD 12/25/2023 4:[address] [facility] nRBC 0.0 <=0.0 per 100 WBCs LAB HEMATOLOGY METHOD 12/25/2023 4:[address] [facility] Differential Type Automated LAB HEMATOLOGY METHOD 12/25/2023 4:[address] [facility] Neutrophils % 63.0 % LAB HEMATOLOGY METHOD 12/25/2023 4:[address] [facility] Lymphocytes % 26.0 % LAB HEMATOLOGY METHOD 12/25/2023 4:[address] [facility] Monocytes % 8.0 % LAB HEMATOLOGY METHOD 12/25/2023 4:[address] [facility] Eosinophils % 1.0 % LAB HEMATOLOGY METHOD 12/25/2023 4:[address] [facility] Basophils % 1.0 % LAB HEMATOLOGY METHOD 12/25/2023 4:[address] [facility] Immature Granulocytes % 1.0 % LAB HEMATOLOGY METHOD 12/25/2023 4:[address] [facility] Neutrophils Absolute 3.41 1.60 - 6.10 10*3/uL LAB HEMATOLOGY METHOD 12/25/2023 4:[address] [facility] Lymphocytes Absolute 1.36 1.20 - 3.90 10*3/uL LAB HEMATOLOGY METHOD 12/25/2023 4:[address] [facility] Monocytes Absolute 0.41 0.30 - 0.90 10*3/uL LAB HEMATOLOGY METHOD 12/25/2023 4:[address] [facility] Eosinophils Absolute 0.07 0.00 - 0.50 10*3/uL LAB HEMATOLOGY METHOD 12/25/2023 4:[address] [facility] Basophils Absolute 0.03 0.00 - 0.10 10*3/uL LAB HEMATOLOGY METHOD 12/25/2023 4:[address] [facility] Immature Granulocytes Absolute 0.04 0.00 - 0.06 10*3/uL LAB HEMATOLOGY METHOD 12/25/2023 4:[address] [facility] Blood Venous blood specimen / Unknown Venipuncture / Unknown 12/25/2023 3:08 AM EDT 12/25/2023 3:[address] [facility] - 12/25/2023 4:51 AM EDT Therapeutic decision making should be based on absolute values, rather than percentages. us Tian Mattson MD LAB BLOOD ORDERABLES Final Resu lt [facility] [address] [place] [address] * (ABNORMAL) Phosphorus (12/25/2023 3:08 AM EDT) Phosphorus, Plasma 4.6(H) 2.5 - 4.5 mg/dL 12/25/2023 4:[address] [facility] Blood Venous blood specimen / Unknown Venipuncture / Unknown 12/25/2023 3:08 AM EDT 12/25/2023 3:43 AM EDT us Tian Mattson MD LAB BLOOD ORDERABLES Final Resu lt Performing Organization Address City/[facility]/ZIP Co de Phone Number [facility] [address] [place] [address] * Magnesium (12/25/2023 3:08 AM EDT) Magnesium, Plasma 2.1 1.9 - 2.4 mg/dL 12/25/2023 4:[address] [facility] Blood Venous blood specimen / Unknown Venipuncture / Unknown 12/25/2023 3:08 AM EDT 12/25/2023 3:43 AM EDT us Tian Mattson MD LAB BLOOD ORDERABLES Final Resu lt Performing Organization Address [facility]/ZIP Co de Phone Number [facility] [address] [place] [address] * (ABNORMAL) Basic metabolic panel (12/25/2023 3:08 AM EDT) Glucose, Plasma 173(H) 74 - 99 mg/dL 12/25/2023 4:[address] [facility] BUN, Plasma 74(H) 7 - 21 mg/dL 12/25/2023 4:[address] [facility] Creatinine, Plasma 3.13(H) 0.70 - 1.20 mg/dL 12/25/2023 4:[address] [facility] BUN/Creatinine Ratio 24 12/25/2023 4:[address] [facility] Sodium, Plasma 141 136 - 145 mmol/L 12/25/2023 4:[address] [facility] Potassium, Plasma 3.9 3.6 - 4.9 mmol/L 12/25/2023 4:[address] [facility] Chloride, Plasma 98 97 - 107 mmol/L 12/25/2023 4:[address] [facility] CO2, Plasma 31(H) 22 - 29 mmol/L 12/25/2023 4:[address] [facility] Anion Gap 12 6 - 16 mmol/L 12/25/2023 4:[address] [facility] Total Calcium, Plasma 8.8(L) 8.9 - 10.2 mg/dL 12/25/2023 4:[address] [facility] eGFRcr 22.5 mL/min/1.7 3m*2 12/25/2023 4:[address] [facility] Comment:Reported eGFRcr in m L/min/1.73m2 is based the CKD-EPI 2020 equation that does not use a race coefficient. Blood Venous blood specimen / Unknown Venipuncture / Unknown 12/25/2023 3:08 AM EDT 12/25/2023 3:43 AM EDT us Tian Mattson MD LAB BLOOD ORDERABLES Final Resu lt Performing Organization Address City/[facility] Co de Phone Number [facility] [address] [place] [address] * (ABNORMAL) POCT glucose meter (12/24/2023 7:22 [...] Comment 12/24/2023 7:23 PM EDT [facility] Hog Dropper ID Michele Carmona II 12/24/2023 7:23 PM EDT [facility] Device ID [id number] 12/24/2023 7:23 PM EDT [facility] Specimen Type POC Capillary 12/24/2023 7:23 PM EDT [facility] Blood Capillary blood specimen / Unknown 12/24/2023 7:22 PM EDT 12/24/2023 7:23 PM EDT us Jonny Broussard MD LAB POINT OF CARE TE ST DOCKED DEVICE UNSOLICITED RESULTS Final Result Performing Organization Address City/[facility]/ZIP Co de Phone Number [facility] [address] [place] [address] * (ABNORMAL) POCT glucose meter (12/24/2023 5:50 PM EDT) [facility] POCT Glucose 105(H) 74 - 99 mg/dL [...] Comment 12/24/2023 5:52 PM EDT [facility] Hog Dropper ID Miranda Bear 12/24/2023 5:52 PM EDT [facility] Device ID [id number] 12/24/2023 5:52 PM EDT [facility] Specimen Type POC Capillary 12/24/2023 5:52 PM EDT [facility] Blood Capillary blood specimen / Unknown 12/24/2023 5:50 PM EDT 12/24/2023 5:52 PM EDT us Jonny Broussard MD LAB POINT OF CARE TE ST DOCKED DEVICE UNSOLICITED RESULTS Final Result [facility] [address] [place] [address] * (ABNORMAL) POCT glucose meter (12/24/2023 12:35 PM EDT) [facility] POCT Glucose 153(H) 74 - 99 mg/dL [...] 12/24/2023 12:37 PM EDT [facility] Hog Dropper ID Dottie Uriarte 12/24/2023 12:37 PM EDT [facility] Device ID [id number] 12/24/2023 12:37 PM EDT [facility] Specimen Type POC Capillary 12/24/2023 12:37 PM EDT [facility] Blood Capillary blood specimen / Unknown 12/24/2023 12:35 PM EDT 12/24/2023 12:37 PM EDT Jonny Broussard MD LAB POINT OF CARE TE ST DOCKED DEVICE UNSOLICITED RESULTS Final Result Performing Organization Address City/[facility]/ZIP Co de Phone Number [facility] [address] [place] [address] * (ABNORMAL) POCT glucose meter (12/24/2023 8:45 [...] Comment 12/24/2023 8:46 AM EDT [facility] Hog Dropper ID Dottie Uriarte 12/24/2023 8:46 AM EDT [facility] Device ID [id number] 12/24/2023 8:46 AM EDT [facility] Specimen Type POC Capillary 12/24/2023 8:46 AM EDT [facility] Blood Capillary blood specimen / Unknown 12/24/2023 8:45 AM EDT 12/24/2023 8:46 AM EDT us Jonny Broussard MD LAB POINT OF CARE TE ST DOCKED DEVICE UNSOLICITED RESULTS Final Result [facility] [address] [place] [address] * Morphology (12/24/2023 4:31 AM EDT) Elliptocytes/O valocytes Present LAB HEMATOLOGY METHOD 12/24/2023 6:[address] [facility] RBC Morphology Slide Reviewed LAB HEMATOLOGY METHOD 12/24/2023 6:[address] [facility] Platelet Estimate Platelet smear estimate consistent with automated count LAB HEMATOLOGY METHOD 12/24/2023 6:[address] [facility] Blood Venous blood specimen / Unknown Venipuncture / Unknown 12/24/2023 4:31 AM EDT 12/24/2023 4:38 AM EDT us Tian Mattson MD LAB BLOOD ORDERABLES Final Resu lt [facility] [address] [place] [address] * (ABNORMAL) Manual Differential (12/24/2023 4:31 AM EDT) Blasts % 0 % LAB HEMATOLOGY METHOD 12/24/2023 6:[address] [facility] Promyelocytes % 0 % LAB HEMATOLOGY METHOD 12/24/2023 6:[address] [facility] Myelocytes % 0 % LAB HEMATOLOGY METHOD 12/24/2023 6:[address] [facility] Metamyelocytes % 0 % LAB HEMATOLOGY METHOD 12/24/2023 6:[address] [facility] Neutrophils % 72 % LAB HEMATOLOGY METHOD 12/24/2023 6:[address] [facility] Lymphocytes % 18 % LAB HEMATOLOGY METHOD 12/24/2023 6:[address] [facility] Reactive Lymphocytes % 3 % LAB HEMATOLOGY METHOD 12/24/2023 6:[address] [facility] Monocytes % 3 % LAB HEMATOLOGY METHOD 12/24/2023 6:[address] [facility] Eosinophils % 1 % LAB HEMATOLOGY METHOD 12/24/2023 6:[address] [facility] Basophils % 3 % LAB HEMATOLOGY METHOD 12/24/2023 6:[address] [facility] Plasma Cells % LAB HEMATOLOGY METHOD 12/24/2023 6:[address] [facility] Lymphoma Cells % LAB HEMATOLOGY METHOD 12/24/2023 6:[address] [facility] Hairy Cell % LAB HEMATOLOGY METHOD 12/24/2023 6:[address] [facility] Other Cells % LAB HEMATOLOGY METHOD 12/24/2023 6:[address] [facility] Blasts Absolute 0.00 10*3/UL LAB HEMATOLOGY METHOD 12/24/2023 6:[address] [facility] Promyelocytes Absolute 0.00 10*3/uL LAB HEMATOLOGY METHOD 12/24/2023 6:[address] [facility] Myelocytes Absolute 0.00 10*3/uL LAB HEMATOLOGY METHOD 12/24/2023 6:[address] [facility] Metamyelocytes Absolute 0.00 10*3/uL LAB HEMATOLOGY METHOD 12/24/2023 6:[address] [facility] Neutrophils Absolute 3.78 1.60 - 6.10 10*3/uL LAB HEMATOLOGY METHOD 12/24/2023 6:[address] [facility] Lymphocytes Absolute 0.95(L) 1.20 - 3.90 10*3/uL LAB HEMATOLOGY METHOD 12/24/2023 6:[address] [facility] Reactive Lymphocytes Absolute 0.16 10*3/uL LAB HEMATOLOGY METHOD 12/24/2023 6:[address] [facility] Monocytes Absolute 0.16(L) 0.30 - 0.90 10*3/uL LAB HEMATOLOGY METHOD 12/24/2023 6:[address] [facility] Eosinophils Absolute 0.05 0.00 - 0.50 10*3/uL LAB HEMATOLOGY METHOD 12/24/2023 6:[address] [facility] Basophils Absolute 0.16(H) 0.00 - 0.10 10*3/uL LAB HEMATOLOGY METHOD 12/24/2023 6:[address] [facility] Plasma Cells Absolute LAB HEMATOLOGY METHOD 12/24/2023 6:[address] [facility] Lymphoma Cells Absolute LAB HEMATOLOGY METHOD 12/24/2023 6:[address] [facility] Hairy Cells Absolute LAB HEMATOLOGY METHOD 12/24/2023 6:[address] [facility] Other Cells Absolute LAB HEMATOLOGY METHOD 12/24/2023 6:[address] [facility] Blood Venous blood specimen / Unknown Venipuncture / Unknown 12/24/2023 4:31 AM EDT 12/24/2023 4:38 AM EDT us Tian Mattson MD LAB BLOOD ORDERABLES Final Resu lt [facility] [address] [place] [address] * (ABNORMAL) CBC and differential (12/24/2023 4:31 AM EDT) WBC Count 5.25 3.70 - 10.30 10*3/uL LAB HEMATOLOGY METHOD 12/24/2023 6:[address] [facility] RBC Count 3.54(L) 4.60 - 6.10 10*6/uL LAB HEMATOLOGY METHOD 12/24/2023 6:[address] [facility] HGB 8.8(L) 13.7 - 17.5 g/dL LAB HEMATOLOGY METHOD 12/24/2023 6:[address] [facility] HCT 28.6(L) 40.0 - 51.0 % LAB HEMATOLOGY METHOD 12/24/2023 6:[address] [facility] Platelet Count 210 155 - 369 10*3/uL LAB HEMATOLOGY METHOD 12/24/2023 6:[address] [facility] MCV 81 79 - 98 fL LAB HEMATOLOGY METHOD 12/24/2023 6:[address] [facility] MCH 24.9(L) 26.0 - 32.0 pg LAB HEMATOLOGY METHOD 12/24/2023 6:[address] [facility] MCHC 30.8 30.7 - 35.5 g/dL LAB HEMATOLOGY METHOD 12/24/2023 6:[address] [facility] RDW 18.1(H) 11.5 - 14.5 % LAB HEMATOLOGY METHOD 12/24/2023 6:[address] [facility] MPV 10.9 8.8 - 12.5 fL LAB HEMATOLOGY METHOD 12/24/2023 6:[address] [facility] nRBC 0.0 <=0.0 per 100 WBCs LAB HEMATOLOGY METHOD 12/24/2023 6:[address] [facility] Differential Type Manual LAB HEMATOLOGY METHOD 12/24/2023 6:[address] [facility] Blood Venous blood specimen / Unknown Venipuncture / Unknown 12/24/2023 4:31 AM EDT 12/24/2023 4:[address] [facility] - 12/24/2023 6:21 AM EDT Therapeutic [...] ORDERABLES Final Resu lt Performing Organization Address City/[facility]/ZIP Co de Phone Number [facility] [address] [place] [address] * Phosphorus (12/24/2023 4:31 AM EDT) Phosphorus, Plasma 4.0 2.5 - 4.5 mg/dL 12/24/2023 5:[address] [facility] Blood Venous blood specimen / Unknown Venipuncture / Unknown 12/24/2023 4:31 AM EDT 12/24/2023 4:38 AM EDT Tian Mattson MD LAB BLOOD ORDERABLES Final Resu lt [facility] [address] [place] [address] * Magnesium (12/24/2023 4:31 AM EDT) Magnesium, Plasma 2.0 1.9 - 2.4 mg/dL 12/24/2023 5:[address] [facility] Blood Venous blood specimen / Unknown Venipuncture / Unknown 12/24/2023 4:31 AM EDT 12/24/2023 4:38 AM EDT us Tian Mattson MD LAB BLOOD ORDERABLES Final Resu lt [facility] [address] [place] [address] * (ABNORMAL) Basic metabolic panel (12/24/2023 4:31 AM EDT) Glucose, Plasma 192(H) 74 - 99 mg/dL 12/24/2023 5:[address] [facility] BUN, Plasma 73(H) 7 - 21 mg/dL 12/24/2023 5:[address] [facility] Creatinine, Plasma 3.26(H) 0.70 - 1.20 mg/dL 12/24/2023 5:[address] [facility] BUN/Creatinine Ratio 22 12/24/2023 5:[address] [facility] Sodium, Plasma 141 136 - 145 mmol/L 12/24/2023 5:[address] [facility] Potassium, Plasma 3.7 3.6 - 4.9 mmol/L 12/24/2023 5:[address] [facility] Chloride, Plasma 100 97 - 107 mmol/L 12/24/2023 5:[address] [facility] CO2, Plasma 29 22 - 29 mmol/L 12/24/2023 5:[address] [facility] Anion Gap 12 6 - 16 mmol/L 12/24/2023 5:[address] [facility] Total Calcium, Plasma 8.1(L) 8.9 - 10.2 mg/dL 12/24/2023 5:[address] [facility] eGFRcr 21.4 mL/min/1.7 3m*2 12/24/2023 5:[address] [facility] Comment:Reported eGFRcr in m L/min/1.73m2 is based the CKD-EPI 2020 equation that does not use a race coefficient. Blood Venous blood specimen / Unknown Venipuncture / Unknown 12/24/2023 4:31 AM EDT 12/24/2023 4:38 AM EDT us Tian Mattson MD LAB BLOOD ORDERABLES Final Resu lt [facility] [address] [place] [address] * (ABNORMAL) POCT glucose meter (12/23/2023 7:28 [...] Comment 12/23/2023 7:29 PM EDT [facility] Hog Dropper ID Michele Carmona II 12/23/2023 7:29 PM EDT [facility] Device ID [id number] 12/23/2023 7:29 PM EDT [facility] Specimen Type POC Capillary 12/23/2023 7:29 PM EDT [facility] Blood Capillary blood specimen / Unknown 12/23/2023 7:28 PM EDT 12/23/2023 7:29 PM EDT us Jonny Broussard MD LAB POINT OF CARE TE ST DOCKED DEVICE UNSOLICITED RESULTS Final Result Performing Organization Address City/[facility]/ZIP Co de Phone Number [facility] [address] [place] [address] * (ABNORMAL) POCT glucose meter (12/23/2023 5:45 PM EDT) Pathologist [facility] POCT Glucose 170(H) 74 - 99 mg/dL [...] 12/23/2023 5:47 PM EDT [facility] Hog Dropper ID Dottie Uriarte 12/23/2023 5:47 PM EDT [facility] Device ID [id number] 12/23/2023 5:47 PM EDT [facility] Specimen Type POC Capillary 12/23/2023 5:47 PM EDT [facility] Blood Capillary blood specimen / Unknown 12/23/2023 5:45 PM EDT 12/23/2023 5:47 PM EDT us Jonny Broussard MD LAB POINT OF CARE TE ST DOCKED DEVICE UNSOLICITED RESULTS Final Result [facility] [address] [place] [address] * (ABNORMAL) POCT glucose meter (12/23/2023 12:50 PM EDT) [facility] POCT Glucose 119(H) 74 - 99 mg/dL [...] Comment 12/23/2023 12:52 PM EDT [facility]ALTH[facility] Hog Dropper ID Dottie Uriarte 12/23/2023 12:52 PM EDT [facility]ALTH[facility] LAB Device ID [id number] 12/23/2023 12:52 PM EDT [facility]ALTH[facility] LAB Specimen Type POC Capillary 12/23/2023 12:52 PM EDT [facility] Blood Capillary blood specimen / Unknown 12/23/2023 12:50 PM EDT 12/23/2023 12:52 PM EDT us Jonny Broussard MD LAB POINT OF CARE TE ST DOCKED DEVICE UNSOLICITED RESULTS Final Result [facility] [address] [place] [address] * (ABNORMAL) POCT glucose meter (12/23/2023 8:48 AM EDT) [facility] POCT Glucose 108(H) 74 - 99 mg/dL [...] Comment 12/23/2023 8:49 AM EDT [facility]ALTHCARE [facility] Hog Dropper ID Miranda Bear 12/23/2023 8:49 AM EDT [facility]ALTHCARE LAB Device ID [id number] 12/23/2023 8:49 AM EDT HEALTHCARE LAB Specimen Type POC Capillary 12/23/2023 8:49 AM EDT [facility] Blood Capillary blood specimen / Unknown 12/23/2023 8:48 AM EDT 12/23/2023 8:49 AM EDT Jonny Broussard MD LAB POINT OF CARE TE ST DOCKED DEVICE UNSOLICITED RESULTS Final Result [facility] [address] [place] [address] * (ABNORMAL) CBC and differential (12/23/2023 4:10 AM EDT) [facility] WBC Count 4.81 3.70 - 10.30 10*3/uL LAB HEMATOLOGY METHOD 12/23/2023 4:[address] [facility] RBC Count 3.43(L) 4.60 - 6.10 10*6/uL LAB HEMATOLOGY METHOD 12/23/2023 4:[address] [facility] HGB 8.4(L) 13.7 - 17.5 g/dL LAB HEMATOLOGY METHOD 12/23/2023 4:[address] [facility] HCT 27.3(L) 40.0 - 51.0 % LAB HEMATOLOGY METHOD 12/23/2023 4:[address] [facility] Platelet Count 192 155 - 369 10*3/uL LAB HEMATOLOGY METHOD 12/23/2023 4:[address] [facility] MCV 80 79 - 98 fL LAB HEMATOLOGY METHOD 12/23/2023 4:[address] [facility] MCH 24.5(L) 26.0 - 32.0 pg LAB HEMATOLOGY METHOD 12/23/2023 4:[address] [facility] MCHC 30.8 30.7 - 35.5 g/dL LAB HEMATOLOGY METHOD 12/23/2023 4:[address] [facility] RDW 18.0(H) 11.5 - 14.5 % LAB HEMATOLOGY METHOD 12/23/2023 4:[address] [facility] MPV 10.2 8.8 - 12.5 fL LAB HEMATOLOGY METHOD 12/23/2023 4:[address] [facility] nRBC 0.0 <=0.0 per 100 WBCs LAB HEMATOLOGY METHOD 12/23/2023 4:[address] [facility] Differential Type Automated LAB HEMATOLOGY METHOD 12/23/2023 4:[address] [facility] Neutrophils % 69.0 % LAB HEMATOLOGY METHOD 12/23/2023 4:[address] [facility] Lymphocytes % 21.0 % LAB HEMATOLOGY METHOD 12/23/2023 4:[address] [facility] Monocytes % 8.0 % LAB HEMATOLOGY METHOD 12/23/2023 4:[address] [facility] Eosinophils % 2.0 % LAB HEMATOLOGY METHOD 12/23/2023 4:[address] [facility] Basophils % 0.0 % LAB HEMATOLOGY METHOD 12/23/2023 4:[address] [facility] Immature Granulocytes % 0.0 % LAB HEMATOLOGY METHOD 12/23/2023 4:[address] [facility] Neutrophils Absolute 3.31 1.60 - 6.10 10*3/uL LAB HEMATOLOGY METHOD 12/23/2023 4:[address] [facility] Lymphocytes Absolute 1.00(L) 1.20 - 3.90 10*3/uL LAB HEMATOLOGY METHOD 12/23/2023 4:[address] [facility] Monocytes Absolute 0.39 0.30 - 0.90 10*3/uL LAB HEMATOLOGY METHOD 12/23/2023 4:[address] [facility] Eosinophils Absolute 0.07 0.00 - 0.50 10*3/uL LAB HEMATOLOGY METHOD 12/23/2023 4:[address] [facility] Basophils Absolute 0.02 0.00 - 0.10 10*3/uL LAB HEMATOLOGY METHOD 12/23/2023 4:[address] [facility] Immature Granulocytes Absolute 0.02 0.00 - 0.06 10*3/uL LAB HEMATOLOGY METHOD 12/23/2023 4:[address] [facility] Blood Venous blood specimen / Unknown Venipuncture / Unknown 12/23/2023 4:10 AM EDT 12/23/2023 4:[address] [facility] - 12/23/2023 4:23 AM EDT Therapeutic decision making should be based on absolute values, rather than percentages. us Tian Mattson MD LAB BLOOD ORDERABLES Final Resu lt [facility] [address] [place] [address] * Phosphorus (12/23/2023 4:10 AM EDT) Phosphorus, Plasma 4.1 2.5 - 4.5 mg/dL 12/23/2023 4:[address] [facility] Blood Venous blood specimen / Unknown Venipuncture / Unknown 12/23/2023 4:10 AM EDT 12/23/2023 4:15 AM EDT us Tian Mattson MD LAB BLOOD ORDERABLES Final Resu lt [facility] [address] [place] [address] * Magnesium (12/23/2023 4:10 AM EDT) Magnesium, Plasma 2.0 1.9 - 2.4 mg/dL 12/23/2023 4:[address] [facility] Blood Venous blood specimen / Unknown Venipuncture / Unknown 12/23/2023 4:10 AM EDT 12/23/2023 4:15 AM EDT us Tian Mattson MD LAB BLOOD ORDERABLES Final Resu lt [facility] [address] [place] [address] * (ABNORMAL) Basic metabolic panel (12/23/2023 4:10 AM EDT) Glucose, Plasma 126(H) 74 - 99 mg/dL 12/23/2023 4:[address] [facility] BUN, Plasma 74(H) 7 - 21 mg/dL 12/23/2023 4:[address] [facility] Creatinine, Plasma 3.28(H) 0.70 - 1.20 mg/dL 12/23/2023 4:[address] [facility] BUN/Creatinine Ratio 23 12/23/2023 4:[address] [facility] Sodium, Plasma 139 136 - 145 mmol/L 12/23/2023 4:[address] [facility] Potassium, Plasma 4.0 3.6 - 4.9 mmol/L 12/23/2023 4:[address] [facility] Chloride, Plasma 99 97 - 107 mmol/L 12/23/2023 4:[address] [facility] CO2, Plasma 29 22 - 29 mmol/L 12/23/2023 4:[address] [facility] Anion Gap 11 6 - 16 mmol/L 12/23/2023 4:[address] [facility] Total Calcium, Plasma 8.1(L) 8.9 - 10.2 mg/dL 12/23/2023 4:[address] [facility] eGFRcr 21.2 mL/min/1.7 3m*2 12/23/2023 4:[address] [facility] Comment:Reported eGFRcr in m L/min/1.73m2 is based the CKD-EPI 2020 equation that does not use a race coefficient. Blood Venous blood specimen / Unknown Venipuncture / Unknown 12/23/2023 4:10 AM EDT 12/23/2023 4:15 AM EDT us Tian Mattson MD LAB BLOOD ORDERABLES Final Resu lt Performing Organization Address [facility] Co de Phone Number [facility] [address] [place] [address] * (ABNORMAL) N-Terminal Probnp (12/23/2023 4:10 AM EDT) Pathologist [facility] N-Terminal, PROBNP, Plasma 55,429(H) 0 - 899 pg/mL 12/23/2023 4:56 AM EDT [facility] Blood Venous blood specimen / Unknown Venipuncture / Unknown 12/23/2023 4:10 AM EDT 12/23/2023 4:15 AM EDT us Jonny Broussard MD LAB BLOOD ORDERABLES Final Resu lt Performing Organization Address [facility] Co de Phone Number [facility] [address] [place] [address] * (ABNORMAL) POCT glucose meter (12/22/2023 7:45 PM EDT) [facility] POCT Glucose 167(H) 74 - 99 mg/dL [...] 12/22/2023 7:47 PM EDT [facility] Hog Dropper ID Mamta Scruggs 12/22/19 7:47 PM EDT [facility] Device ID [id number] 12/22/2023 7:47 PM EDT [facility] Specimen Type POC Capillary 12/22/2023 7:47 PM EDT [facility] Blood Capillary blood specimen / Unknown 12/22/2023 7:45 PM EDT 12/22/2023 7:47 PM EDT Jonny Broussard MD LAB POINT OF CARE TE ST DOCKED DEVICE UNSOLICITED RESULTS Final Result Performing Organization Address [facility] de Phone Number [facility] [address] [place] [address] * (ABNORMAL) POCT glucose meter (12/22/2023 5:41 PM EDT) [facility] POCT Glucose 197(H) 74 - 99 mg/dL [...] Comment 12/22/2023 5:43 PM EDT [facility]ALTH[facility] Hog Dropper ID Dottie Uriarte 12/22/2023 5:43 PM EDT [facility] Device ID [id number] 12/22/2023 5:43 PM EDT [facility] Specimen Type POC Capillary 12/22/2023 5:43 PM EDT [facility] Blood Capillary blood specimen / Unknown 12/22/2023 5:41 PM EDT 12/22/2023 5:43 PM EDT Jonny Broussard MD LAB POINT OF CARE TE ST DOCKED DEVICE UNSOLICITED RESULTS Final Result Performing Organization Address City/[facility] Co de Phone Number [facility] [address] [place] [address] * (ABNORMAL) POCT glucose meter (12/22/2023 12:40 PM EDT) [facility] POCT Glucose 172(H) 74 - 99 mg/dL [...] Comment 12/22/2023 12:42 PM EDT [facility] Hog Dropper ID Miranda Bear 12/22/2023 12:42 PM EDT [facility] Device ID [id number] 12/22/2023 12:42 PM EDT [facility] Specimen Type POC Capillary 12/22/2023 12:42 PM EDT [facility] Blood Capillary blood specimen / Unknown 12/22/2023 12:40 PM EDT 12/22/2023 12:42 PM EDT us Jonny Broussard MD LAB POINT OF CARE TE ST DOCKED DEVICE UNSOLICITED RESULTS Final Result Performing Organization Address City/[facility] Co nm Phone Number [facility] [address] [place] [address] * (ABNORMAL) POCT glucose meter (12/22/2023 8:45 [...] 12/22/2023 8:47 AM EDT [facility] Hog Dropper ID Dottie Uriarte 12/22/2023 8:47 AM EDT [facility] Device ID [id number] 12/22/2023 8:47 AM EDT [facility] Specimen Type POC Capillary 12/22/2023 8:47 AM EDT [facility] Blood Capillary blood specimen / Unknown 12/22/2023 8:45 AM EDT 12/22/2023 8:47 AM EDT us Jonny Broussard MD LAB POINT OF CARE TE ST DOCKED DEVICE UNSOLICITED RESULTS Final Result [facility] [address] [place] [address] * (ABNORMAL) CBC and differential (12/22/2023 3:33 AM EDT) WBC Count 4.56 3.70 - 10.30 10*3/uL LAB HEMATOLOGY METHOD 12/22/2023 4:[address] [facility] RBC Count 3.48(L) 4.60 - 6.10 10*6/uL LAB HEMATOLOGY METHOD 12/22/2023 4:[address] [facility] HGB 8.5(L) 13.7 - 17.5 g/dL LAB HEMATOLOGY METHOD 12/22/2023 4:[address] [facility] HCT 27.6(L) 40.0 - 51.0 % LAB HEMATOLOGY METHOD 12/22/2023 4:[address] [facility] Platelet Count 197 155 - 369 10*3/uL LAB HEMATOLOGY METHOD 12/22/2023 4:[address] [facility] MCV 79 79 - 98 fL LAB HEMATOLOGY METHOD 12/22/2023 4:[address] [facility] MCH 24.4(L) 26.0 - 32.0 pg LAB HEMATOLOGY METHOD 12/22/2023 4:[address] [facility] MCHC 30.8 30.7 - 35.5 g/dL LAB HEMATOLOGY METHOD 12/22/2023 4:[address] [facility] RDW 18.1(H) 11.5 - 14.5 % LAB HEMATOLOGY METHOD 12/22/2023 4:[address] [facility] MPV 10.4 8.8 - 12.5 fL LAB HEMATOLOGY METHOD 12/22/2023 4:[address] [facility] nRBC 0.0 <=0.0 per 100 WBCs LAB HEMATOLOGY METHOD 12/22/2023 4:[address] [facility] Differential Type Automated LAB HEMATOLOGY METHOD 12/22/2023 4:[address] [facility] Neutrophils % 74.0 % LAB HEMATOLOGY METHOD 12/22/2023 4:[address] [facility] Lymphocytes % 16.0 % LAB HEMATOLOGY METHOD 12/22/2023 4:[address] [facility] Monocytes % 9.0 % LAB HEMATOLOGY METHOD 12/22/2023 4:[address] [facility] Eosinophils % 1.0 % LAB HEMATOLOGY METHOD 12/22/2023 4:[address] [facility] Basophils % 0.0 % LAB HEMATOLOGY METHOD 12/22/2023 4:[address] [facility] Immature Granulocytes % 0.0 % LAB HEMATOLOGY METHOD 12/22/2023 4:[address] [facility] Neutrophils Absolute 3.29 1.60 - 6.10 10*3/uL LAB HEMATOLOGY METHOD 12/22/2023 4:[address] [facility] Lymphocytes Absolute 0.75(L) 1.20 - 3.90 10*3/uL LAB HEMATOLOGY METHOD 12/22/2023 4:[address] [facility] Monocytes Absolute 0.43 0.30 - 0.90 10*3/uL LAB HEMATOLOGY METHOD 12/22/2023 4:[address] [facility] Eosinophils Absolute 0.05 0.00 - 0.50 10*3/uL LAB HEMATOLOGY METHOD 12/22/2023 4:[address] [facility] Basophils Absolute 0.02 0.00 - 0.10 10*3/uL LAB HEMATOLOGY METHOD 12/22/2023 4:[address] [facility] Immature Granulocytes Absolute 0.02 0.00 - 0.06 10*3/uL LAB HEMATOLOGY METHOD 12/22/2023 4:[address] [facility] Blood Venous blood specimen / Unknown Venipuncture / Unknown 12/22/2023 3:33 AM EDT 12/22/2023 4:[address] [facility] - 12/22/2023 4:21 AM EDT Therapeutic decision making should be based on absolute values, rather than percentages. us Tian Mattson MD LAB BLOOD ORDERABLES Final Resu lt [facility] [address] [place] [address] * Phosphorus (12/22/2023 3:33 AM EDT) Phosphorus, Plasma 4.3 2.5 - 4.5 mg/dL 12/22/2023 5:[address] [facility] Blood Venous blood specimen / Unknown Venipuncture / Unknown 12/22/2023 3:33 AM EDT 12/22/2023 4:10 AM EDT us Tian Mattson MD LAB BLOOD ORDERABLES Final Resu lt Performing Organization Address City/[facility]/ZIP Co de Phone Number [facility] [address] [place] [address] * Magnesium (12/22/2023 3:33 AM EDT) Magnesium, Plasma 2.0 1.9 - 2.4 mg/dL 12/22/2023 5:[address] [facility] Blood Venous blood specimen / Unknown Venipuncture / Unknown 12/22/2023 3:33 AM EDT 12/22/2023 4:10 AM EDT us Tian Mattson MD LAB BLOOD ORDERABLES Final Resu lt [facility] [address] [place] [address] * (ABNORMAL) Basic metabolic panel (12/22/2023 3:33 AM EDT) Glucose, Plasma 154(H) 74 - 99 mg/dL 12/22/2023 5:[address] [facility] BUN, Plasma 74(H) 7 - 21 mg/dL 12/22/2023 5:[address] [facility] Creatinine, Plasma 3.20(H) 0.70 - 1.20 mg/dL 12/22/2023 5:[address] [facility] BUN/Creatinine Ratio 23 12/22/2023 5:[address] [facility] Sodium, Plasma 139 136 - 145 mmol/L 12/22/2023 5:[address] [facility] Potassium, Plasma 3.5(L) 3.6 - 4.9 mmol/L 12/22/2023 5:[address] [facility] Chloride, Plasma 97 97 - 107 mmol/L 12/22/2023 5:[address] [facility] CO2, Plasma 31(H) 22 - 29 mmol/L 12/22/2023 5:[address] [facility] Anion Gap 11 6 - 16 mmol/L 12/22/2023 5:[address] [facility] Total Calcium, Plasma 8.7(L) 8.9 - 10.2 mg/dL 12/22/2023 5:[address] [facility] eGFRcr 21.9 mL/min/1.7 3m*2 12/22/2023 5:[address] [facility] Comment:Reported eGFRcr in m L/min/1.73m2 is based the CKD-EPI 2020 equation that does not use a race coefficient. Blood Venous blood specimen / Unknown Venipuncture / Unknown 12/22/2023 3:33 AM EDT 12/22/2023 4:10 AM EDT us Tian Mattson MD LAB BLOOD ORDERABLES Final Resu lt [facility] [address] [place] [address] * (ABNORMAL) POCT glucose meter (12/21/2023 8:00 [...] Comment 12/21/2023 8:02 PM EDT [facility] Hog Dropper ID Mamta Scruggs 12/21/19 8:02 PM EDT [facility] Device ID [id number] 12/21/2023 8:02 PM EDT [facility] Specimen Type POC Capillary 12/21/2023 8:02 PM EDT [facility] Blood Capillary blood specimen / Unknown 12/21/2023 8:00 PM EDT 12/21/2023 8:02 PM EDT Jonny Broussard MD LAB POINT OF CARE TE ST DOCKED DEVICE UNSOLICITED RESULTS Final Result Performing Organization Address City/[facility]/ZIP Co de Phone Number [facility] [address] [place] [address] * (ABNORMAL) POCT glucose meter (12/21/2023 5:26 [...] Comment 12/21/2023 5:28 PM EDT [facility] Hog Dropper ID Gurinder García 5:28 PM EDT [facility] Device ID [id number] 12/21/2023 5:28 PM EDT [facility] Specimen Type POC Capillary 12/21/2023 5:28 PM EDT [facility] Blood Capillary blood specimen / Unknown 12/21/2023 5:26 PM EDT 12/21/2023 5:28 PM EDT Jonny Broussard MD LAB POINT OF CARE TE ST DOCKED DEVICE UNSOLICITED RESULTS Final Result [facility] [address] [place] [address] * (ABNORMAL) POCT glucose meter (12/21/2023 12:10 [...] Comment 12/21/2023 12:12 PM EDT [facility] Hog Dropper ID Gurinder García Landry 12:12 PM EDT [facility] Device ID [id number] 12/21/2023 12:12 PM EDT [facility] Specimen Type POC Capillary 12/21/2023 12:12 PM EDT [facility] Blood Capillary blood specimen / Unknown 12/21/2023 12:10 PM EDT 12/21/2023 12:12 PM EDT us Jonny Broussard MD LAB POINT OF CARE TE ST DOCKED DEVICE UNSOLICITED RESULTS Final Result Performing Organization Address City/State/[facility] Co de Phone Number [facility] [address] [place] [address] * (ABNORMAL) POCT glucose meter (12/21/2023 8:11 AM EDT) [facility] POCT Glucose 155(H) 74 - 99 mg/dL [...] Comment 12/21/2023 8:13 AM EDT [facility] Hog Dropper ID Gurinder García Landry 8:13 AM EDT [facility] Device ID [id number] 12/21/2023 8:13 AM EDT [facility] Specimen Type POC Capillary 12/21/2023 8:13 AM EDT [facility] Blood Capillary blood specimen / Unknown 12/21/2023 8:11 AM EDT 12/21/2023 8:13 AM EDT us Jonny Broussard MD LAB POINT OF CARE TE ST DOCKED DEVICE UNSOLICITED RESULTS Final Result [facility] [address] [place] [address] * (ABNORMAL) CBC and differential (12/21/2023 3:46 AM EDT) WBC Count 4.18 3.70 - 10.30 10*3/uL LAB HEMATOLOGY METHOD 12/21/2023 3:[address] [facility] RBC Count 3.62(L) 4.60 - 6.10 10*6/uL LAB HEMATOLOGY METHOD 12/21/2023 3:[address] [facility] HGB 8.8(L) 13.7 - 17.5 g/dL LAB HEMATOLOGY METHOD 12/21/2023 3:[address] [facility] HCT 29.2(L) 40.0 - 51.0 % LAB HEMATOLOGY METHOD 12/21/2023 3:[address] [facility] Platelet Count 215 155 - 369 10*3/uL LAB HEMATOLOGY METHOD 12/21/2023 3:[address] [facility] MCV 81 79 - 98 fL LAB HEMATOLOGY METHOD 12/21/2023 3:[address] [facility] MCH 24.3(L) 26.0 - 32.0 pg LAB HEMATOLOGY METHOD 12/21/2023 3:[address] [facility] MCHC 30.1(L) 30.7 - 35.5 g/dL LAB HEMATOLOGY METHOD 12/21/2023 3:[address] [facility] RDW 17.9(H) 11.5 - 14.5 % LAB HEMATOLOGY METHOD 12/21/2023 3:[address] [facility] MPV 10.6 8.8 - 12.5 fL LAB HEMATOLOGY METHOD 12/21/2023 3:[address] [facility] nRBC 0.0 <=0.0 per 100 WBCs LAB HEMATOLOGY METHOD 12/21/2023 3:[address] [facility] Differential Type Automated LAB HEMATOLOGY METHOD 12/21/2023 3:[address] [facility] Neutrophils % 73.0 % LAB HEMATOLOGY METHOD 12/21/2023 3:[address] [facility] Lymphocytes % 15.0 % LAB HEMATOLOGY METHOD 12/21/2023 3:[address] [facility] Monocytes % 10.0 % LAB HEMATOLOGY METHOD 12/21/2023 3:[address] [facility] Eosinophils % 1.0 % LAB HEMATOLOGY METHOD 12/21/2023 3:[address] [facility] Basophils % 0.0 % LAB HEMATOLOGY METHOD 12/21/2023 3:[address] [facility] Immature Granulocytes % 1.0 % LAB HEMATOLOGY METHOD 12/21/2023 3:[address] [facility] Neutrophils Absolute 3.00 1.60 - 6.10 10*3/uL LAB HEMATOLOGY METHOD 12/21/2023 3:[address] [facility] Lymphocytes Absolute 0.64(L) 1.20 - 3.90 10*3/uL LAB HEMATOLOGY METHOD 12/21/2023 3:[address] [facility] Monocytes Absolute 0.43 0.30 - 0.90 10*3/uL LAB HEMATOLOGY METHOD 12/21/2023 3:[address] [facility] Eosinophils Absolute 0.05 0.00 - 0.50 10*3/uL LAB HEMATOLOGY METHOD 12/21/2023 3:[address] [facility] Basophils Absolute 0.01 0.00 - 0.10 10*3/uL LAB HEMATOLOGY METHOD 12/21/2023 3:[address] [facility] Immature Granulocytes Absolute 0.05 0.00 - 0.06 10*3/uL LAB HEMATOLOGY METHOD 12/21/2023 3:[address] [facility] Blood Venous blood specimen / Unknown Venipuncture / Unknown 12/21/2023 3:46 AM EDT 12/21/2023 3:[address] [facility] - 12/21/2023 3:57 AM EDT Therapeutic decision making should be based on absolute values, rather than percentages. us Tian Mattson MD LAB BLOOD ORDERABLES Final Resu lt [facility] [address] [place] [address] * Phosphorus (12/21/2023 3:46 AM EDT) Phosphorus, Plasma 4.1 2.5 - 4.5 mg/dL 12/21/2023 4:[address] [facility] Blood Venous blood specimen / Unknown Venipuncture / Unknown 12/21/2023 3:46 AM EDT 12/21/2023 3:49 AM EDT Tian Mattson MD LAB BLOOD ORDERABLES Final Resu lt Performing Organization Address [facility] Co de Phone Number [facility] [address] [place] [address] * Magnesium (12/21/2023 3:46 AM EDT) Magnesium, Plasma 2.0 1.9 - 2.4 mg/dL 12/21/2023 4:[address] [facility] Blood Venous blood specimen / Unknown Venipuncture / Unknown 12/21/2023 3:46 AM EDT 12/21/2023 3:49 AM EDT us Tian Mattson MD LAB BLOOD ORDERABLES Final Resu lt Performing Organization Address City/[facility] Co de Phone Number [facility] [address] [place] [address] * (ABNORMAL) Basic metabolic panel (12/21/2023 3:46 AM EDT) Glucose, Plasma 147(H) 74 - 99 mg/dL 12/21/2023 4:[address] [facility] BUN, Plasma 73(H) 7 - 21 mg/dL 12/21/2023 4:[address] [facility] Creatinine, Plasma 3.14(H) 0.70 - 1.20 mg/dL 12/21/2023 4:[address] [facility] BUN/Creatinine Ratio 23 12/21/2023 4:[address] [facility] Sodium, Plasma 140 136 - 145 mmol/L 12/21/2023 4:[address] [facility] Potassium, Plasma 3.9 3.6 - 4.9 mmol/L 12/21/2023 4:[address] [facility] Chloride, Plasma 99 97 - 107 mmol/L 12/21/2023 4:[address] [facility] CO2, Plasma 33(H) 22 - 29 mmol/L 12/21/2023 4:[address] [facility] Anion Gap 8 6 - 16 mmol/L 12/21/2023 4:[address] [facility] Total Calcium, Plasma 8.6(L) 8.9 - 10.2 mg/dL 12/21/2023 4:[address] [facility] eGFRcr 22.4 mL/min/1.7 3m*2 12/21/2023 4:[address] [facility] Comment:Reported eGFRcr in m L/min/1.73m2 is based the CKD-EPI 2020 equation that does not use a race coefficient. Blood Venous blood specimen / Unknown Venipuncture / Unknown 12/21/2023 3:46 AM EDT 12/21/2023 3:49 AM EDT us Tian Mattson MD LAB BLOOD ORDERABLES Final Resu lt [facility] [address] [place] [address] * (ABNORMAL) POCT glucose meter (12/20/2023 8:09 [...] Comment 12/20/2023 8:12 PM EDT [facility] Hog Dropper ID Mamta Scruggs 12/20/19 8:12 PM EDT [facility] Device ID [id number] 12/20/2023 8:12 PM EDT [facility] Specimen Type POC Capillary 12/20/2023 8:12 PM EDT [facility] Blood Capillary blood specimen / Unknown 12/20/2023 8:09 PM EDT 12/20/2023 8:12 PM EDT Jonny Broussard MD LAB POINT OF CARE TE ST DOCKED DEVICE UNSOLICITED RESULTS Final Result Performing Organization Address City/[facility]/ZIP Co de Phone Number [facility] [address] [place] [address] * (ABNORMAL) POCT glucose meter (12/20/2023 5:55 [...] 12/20/2023 5:56 PM EDT [facility] Hog Dropper ID Gurinder García 5:56 PM EDT [facility] Device ID [id number] 12/20/2023 5:56 PM EDT [facility] Specimen Type POC Capillary 12/20/2023 5:56 PM EDT [facility] Blood Capillary blood specimen / Unknown 12/20/2023 5:55 PM EDT 12/20/2023 5:56 PM EDT Jonny Broussard MD LAB POINT OF CARE TE ST DOCKED DEVICE UNSOLICITED RESULTS Final Result [facility] [address] [place] [address] * (ABNORMAL) POCT glucose meter (12/20/2023 12:13 [...] Comment 12/20/2023 12:15 PM EDT [facility] Hog Dropper ID Vikram Messer 12/20/2023 12:15 PM EDT [facility] Device ID [id number] 12/20/2023 12:15 PM EDT [facility] Specimen Type POC Capillary 12/20/2023 12:15 PM EDT [facility] Blood Capillary blood specimen / Unknown 12/20/2023 12:13 PM EDT 12/20/2023 12:15 PM EDT us Jonny Broussard MD LAB POINT OF CARE TE ST DOCKED DEVICE UNSOLICITED RESULTS Final Result Performing Organization Address City/State/[facility] Co de Phone Number [facility] [address] [place] [address] * ECHO, ADULT TRANSTHORACIC COMPLETE (12/20/2023 9:34 AM EDT) BSA 2.13 m2 [facility]SC[facility] Baseline Systolic BP 126 [facility] Baseline Diastolic BP 76 [facility] Height 182.9 [facility] Weight 90.7 [facility] MV E Vmax 133.0 cm/s [facility] MV A Vmax 111.0 cm/s [facility]SC[facility] MV E/A 1.2 cm/s WILLIMA ISCV TR Vmax 295.0 cm/s [facility]IAM ISC[facility] RV s' Yinka 10.1 cm/s WLILIAM ISCV TAPSE 23 mm [facility] TR Max PG 35 mmHG [facility] PA acc time 80 msec [facility] mean PAP 43 mmHg [facility] PA MI(ACCEL) 44.4 mmHg [facility] Heart Rate 89 [...] - 99 mg/dL 12/20/2023 8:21 AM EDT [facility] Comment:Accuracy of a glucos e result [...] Comment 12/20/2023 8:21 AM EDT [facility] Hog Dropper ID Vikram Messer 12/20/2023 8:21 AM EDT [facility] Device ID [id number] 12/20/2023 8:21 AM EDT [facility] Specimen Type POC Capillary 12/20/2023 8:21 AM EDT [facility] Blood Capillary blood specimen / Unknown 12/20/2023 8:19 AM EDT 12/20/2023 8:21 AM EDT us Jonny Broussard MD LAB POINT OF CARE TE ST DOCKED DEVICE UNSOLICITED RESULTS Final Result [facility] [address] [place] [address] * (ABNORMAL) CBC and differential (12/20/2023 3:43 AM EDT) WBC Count 4.20 3.70 - 10.30 10*3/uL LAB HEMATOLOGY METHOD 12/20/2023 4:[address] [facility] RBC Count 3.56(L) 4.60 - 6.10 10*6/uL LAB HEMATOLOGY METHOD 12/20/2023 4:[address] [facility] HGB 8.8(L) 13.7 - 17.5 g/dL LAB HEMATOLOGY METHOD 12/20/2023 4:[address] [facility] HCT 28.1(L) 40.0 - 51.0 % LAB HEMATOLOGY METHOD 12/20/2023 4:[address] [facility] Platelet Count 201 155 - 369 10*3/uL LAB HEMATOLOGY METHOD 12/20/2023 4:[address] [facility] MCV 79 79 - 98 fL LAB HEMATOLOGY METHOD 12/20/2023 4:[address] [facility] MCH 24.7(L) 26.0 - 32.0 pg LAB HEMATOLOGY METHOD 12/20/2023 4:[address] [facility] MCHC 31.3 30.7 - 35.5 g/dL LAB HEMATOLOGY METHOD 12/20/2023 4:[address] [facility] RDW 17.8(H) 11.5 - 14.5 % LAB HEMATOLOGY METHOD 12/20/2023 4:[address] [facility] MPV 10.4 8.8 - 12.5 fL LAB HEMATOLOGY METHOD 12/20/2023 4:[address] [facility] nRBC 0.0 <=0.0 per 100 WBCs LAB HEMATOLOGY METHOD 12/20/2023 4:[address] [facility] Differential Type Automated LAB HEMATOLOGY METHOD 12/20/2023 4:[address] [facility] Neutrophils % 69.0 % LAB HEMATOLOGY METHOD 12/20/2023 4:[address] [facility] Lymphocytes % 16.0 % LAB HEMATOLOGY METHOD 12/20/2023 4:[address] [facility] Monocytes % 13.0 % LAB HEMATOLOGY METHOD 12/20/2023 4:[address] [facility] Eosinophils % 1.0 % LAB HEMATOLOGY METHOD 12/20/2023 4:[address] [facility] Basophils % 0.0 % LAB HEMATOLOGY METHOD 12/20/2023 4:[address] [facility] Immature Granulocytes % 1.0 % LAB HEMATOLOGY METHOD 12/20/2023 4:[address] [facility] Neutrophils Absolute 2.89 1.60 - 6.10 10*3/uL LAB HEMATOLOGY METHOD 12/20/2023 4:[address] [facility] Lymphocytes Absolute 0.68(L) 1.20 - 3.90 10*3/uL LAB HEMATOLOGY METHOD 12/20/2023 4:[address] [facility] Monocytes Absolute 0.53 0.30 - 0.90 10*3/uL LAB HEMATOLOGY METHOD 12/20/2023 4:[address] [facility] Eosinophils Absolute 0.04 0.00 - 0.50 10*3/uL LAB HEMATOLOGY METHOD 12/20/2023 4:[address] [facility] Basophils Absolute 0.01 0.00 - 0.10 10*3/uL LAB HEMATOLOGY METHOD 12/20/2023 4:[address] [facility] Immature Granulocytes Absolute 0.05 0.00 - 0.06 10*3/uL LAB HEMATOLOGY METHOD 12/20/2023 4:[address] [facility] Blood Venous blood specimen / Unknown Venipuncture / Unknown 12/20/2023 3:43 AM EDT 12/20/2023 4:[address] [facility] - 12/20/2023 4:11 AM EDT Therapeutic decision making should be based on absolute values, rather than percentages. us Tian Mattson MD LAB BLOOD ORDERABLES Final Resu lt Performing Organization Address City/[facility]/ZIP Co de Phone Number [facility] [address] [place] [address] * Phosphorus (12/20/2023 3:43 AM EDT) Phosphorus, Plasma 3.8 2.5 - 4.5 mg/dL 12/20/2023 4:28 AM EDT [facility] Blood Venous blood specimen / Unknown Venipuncture / Unknown 12/20/2023 3:43 AM EDT 12/20/2023 4:00 AM EDT Tian Mattson MD LAB BLOOD ORDERABLES Final Resu lt Performing Organization Address [facility]/ZIP Co de Phone Number [facility] [address] [place] [address] * Magnesium (12/20/2023 3:43 AM EDT) Magnesium, Plasma 1.9 1.9 - 2.4 mg/dL 12/20/2023 4:[address] [facility] Blood Venous blood specimen / Unknown Venipuncture / Unknown 12/20/2023 3:43 AM EDT 12/20/2023 4:00 AM EDT Tian Mattson MD LAB BLOOD ORDERABLES Final Resu lt Performing Organization Address City/[facility]/ZIP Co de Phone Number [facility] [address] [place] [address] * (ABNORMAL) Basic metabolic panel (12/20/2023 3:43 AM EDT) Glucose, Plasma 195(H) 74 - 99 mg/dL 12/20/2023 4:[address] [facility] BUN, Plasma 72(H) 7 - 21 mg/dL 12/20/2023 4:[address] [facility] Creatinine, Plasma 3.17(H) 0.70 - 1.20 mg/dL 12/20/2023 4:[address] [facility] BUN/Creatinine Ratio 12/20/2023 4:[address] [facility] Sodium, Plasma 136 136 - 145 mmol/L 12/20/2023 4:[address] [facility] Potassium, Plasma 4.5 3.6 - 4.9 mmol/L 12/20/2023 4:[address] [facility] Chloride, Plasma 97 97 - 107 mmol/L 12/20/2023 4:[address] [facility] CO2, Plasma 30(H) 22 - 29 mmol/L 12/20/2023 4:[address] [facility] Anion Gap 9 6 - 16 mmol/L 12/20/2023 4:[address] [facility] Total Calcium, Plasma 8.5(L) 8.9 - 10.2 mg/dL 12/20/2023 4:[address] [facility] eGFRcr 22.1 mL/min/1.7 3m*2 12/20/2023 4:[address] [facility] Comment:Reported eGFRcr in m L/min/1.73m2 is based the CKD-EPI 2020 equation that does not use a race coefficient. Blood Venous blood specimen / Unknown Venipuncture / Unknown 12/20/2023 3:43 AM EDT 12/20/2023 4:00 AM EDT us Tian Mattson MD LAB BLOOD ORDERABLES Final Resu lt [facility] [address] [place] [address] * (ABNORMAL) POCT glucose meter (12/19/2023 7:21 PM EDT) [facility] POCT Glucose 207(H) 74 - 99 mg/dL [...] 12/19/2023 7:23 PM EDT [facility] Hog Dropper ID Miriam Enamorado 12/19/19 7:23 PM EDT [facility] Device ID [id number] 12/19/2023 7:23 PM EDT [facility] Specimen Type POC Capillary 12/19/2023 7:23 PM EDT [facility] Blood Capillary blood specimen / Unknown 12/19/2023 7:21 PM EDT 12/19/2023 7:23 PM EDT Tian Mattson MD LAB POINT OF CARE TE ST DOCKED DEVICE UNSOLICITED RESULTS Final Result Performing Organization Address City/State/[facility] Co de Phone Number [facility] [address] [place] [address] * (ABNORMAL) POCT glucose meter (12/19/2023 5:04 PM EDT) [facility] POCT Glucose 237(H) 74 - 99 mg/dL [...] 12/19/2023 5:06 PM EDT [facility] Hog Dropper ID Dottie Uriarte 12/19/2023 5:06 PM EDT [facility] Device ID [id number] 12/19/2023 5:06 PM EDT [facility] Specimen Type POC Capillary 12/19/2023 5:06 PM EDT [facility] Blood Capillary blood specimen / Unknown 12/19/2023 5:04 PM EDT 12/19/2023 5:06 PM EDT Tian Mattson MD LAB POINT OF CARE TE ST DOCKED DEVICE UNSOLICITED RESULTS Final Result [facility] [address] [place] [address] * (ABNORMAL) Basic metabolic panel (12/19/2023 1:06 PM EDT) Glucose, Plasma 157(H) 74 - 99 mg/dL 12/19/2023 1:[address] [facility] BUN, Plasma 71(H) 7 - 21 mg/dL 12/19/2023 1:[address] [facility] Creatinine, Plasma 3.10(H) 0.70 - 1.20 mg/dL 12/19/2023 1:[address] [facility] BUN/Creatinine Ratio 23 12/19/2023 1:[address] [facility] Sodium, Plasma 139 136 - 145 mmol/L 12/19/2023 1:[address] [facility] Potassium, Plasma 4.4 3.6 - 4.9 mmol/L 12/19/2023 1:[address] [facility] Chloride, Plasma 99 97 - 107 mmol/L 12/19/2023 1:[address] [facility] CO2, Plasma 28 22 - 29 mmol/L 12/19/2023 1:[address] [facility] Anion Gap 12 6 - 16 mmol/L 12/19/2023 1:[address] [facility] Total Calcium, Plasma 8.8(L) 8.9 - 10.2 mg/dL 12/19/2023 1:[address] [facility] eGFRcr 22.7 mL/min/1.7 3m*2 12/19/2023 1:[address] [facility] Comment:Reported eGFRcr in m L/min/1.73m2 is based the CKD-EPI 2020 equation that does not use a race coefficient. Blood Venous blood specimen / Unknown Venipuncture / Unknown 12/19/2023 1:06 PM EDT 12/19/2023 1:17 PM EDT Tian Mattson MD LAB BLOOD ORDERABLES Final Resu lt [facility] [address] [place] [address] * (ABNORMAL) POCT glucose meter (12/19/2023 12:34 [...] for testing. Comment 12/19/2023 12:36 PM EDT [facility] Hog Dropper ID Dottie Uriarte 12/19/2023 12:36 PM EDT [facility] Device ID [id number] 12/19/2023 12:36 PM EDT [facility] Specimen Type POC Capillary 12/19/2023 12:36 PM EDT [facility] Blood Capillary blood specimen / Unknown 12/19/2023 12:34 PM EDT 12/19/2023 12:36 PM EDT Tian Mattson MD LAB POINT OF CARE TE ST DOCKED DEVICE UNSOLICITED RESULTS Final Result [facility] [address] [place] [address] * (ABNORMAL) POCT glucose meter (12/19/2023 8:49 [...] Comment 12/19/2023 8:50 AM EDT [facility] Hog Dropper ID Dottie Uriarte 12/19/2023 8:50 AM EDT [facility] Device ID [id number] 12/19/2023 8:50 AM EDT [facility] Specimen Type POC Capillary 12/19/2023 8:50 AM EDT [facility] Blood Capillary blood specimen / Unknown 12/19/2023 8:49 AM EDT 12/19/2023 8:50 AM EDT us Tian Mattson MD LAB POINT OF CARE TE ST DOCKED DEVICE UNSOLICITED RESULTS Final Result [facility] [address] [place] [address] * (ABNORMAL) CBC and differential (12/19/2023 4:26 AM EDT) [facility] WBC Count 4.07 3.70 - 10.30 10*3/uL LAB HEMATOLOGY METHOD 12/19/2023 4:[address] [facility] RBC Count 3.67(L) 4.60 - 6.10 10*6/uL LAB HEMATOLOGY METHOD 12/19/2023 4:[address] [facility] HGB 8.9(L) 13.7 - 17.5 g/dL LAB HEMATOLOGY METHOD 12/19/2023 4:[address] [facility] HCT 29.5(L) 40.0 - 51.0 % LAB HEMATOLOGY METHOD 12/19/2023 4:[address] [facility] Platelet Count 211 155 - 369 10*3/uL LAB HEMATOLOGY METHOD 12/19/2023 4:[address] [facility] MCV 80 79 - 98 fL LAB HEMATOLOGY METHOD 12/19/2023 4:[address] [facility] MCH 24.3(L) 26.0 - 32.0 pg LAB HEMATOLOGY METHOD 12/19/2023 4:[address] [facility] MCHC 30.2(L) 30.7 - 35.5 g/dL LAB HEMATOLOGY METHOD 12/19/2023 4:[address] [facility] RDW 17.8(H) 11.5 - 14.5 % LAB HEMATOLOGY METHOD 12/19/2023 4:[address] [facility] MPV 10.9 8.8 - 12.5 fL LAB HEMATOLOGY METHOD 12/19/2023 4:[address] [facility] nRBC 0.0 <=0.0 per 100 WBCs LAB HEMATOLOGY METHOD 12/19/2023 4:[address] [facility] Differential Type Automated LAB HEMATOLOGY METHOD 12/19/2023 4:[address] [facility] Neutrophils % 64.0 % LAB HEMATOLOGY METHOD 12/19/2023 4:[address] [facility] Lymphocytes % 19.0 % LAB HEMATOLOGY METHOD 12/19/2023 4:[address] [facility] Monocytes % 13.0 % LAB HEMATOLOGY METHOD 12/19/2023 4:[address] [facility] Eosinophils % 2.0 % LAB HEMATOLOGY METHOD 12/19/2023 4:[address] [facility] Basophils % 1.0 % LAB HEMATOLOGY METHOD 12/19/2023 4:[address] [facility] Immature Granulocytes % 1.0 % LAB HEMATOLOGY METHOD 12/19/2023 4:[address] [facility] Neutrophils Absolute 2.60 1.60 - 6.10 10*3/uL LAB HEMATOLOGY METHOD 12/19/2023 4:[address] [facility] Lymphocytes Absolute 0.77(L) 1.20 - 3.90 10*3/uL LAB HEMATOLOGY METHOD 12/19/2023 4:[address] [facility] Monocytes Absolute 0.54 0.30 - 0.90 10*3/uL LAB HEMATOLOGY METHOD 12/19/2023 4:[address] [facility] Eosinophils Absolute 0.09 0.00 - 0.50 10*3/uL LAB HEMATOLOGY METHOD 12/19/2023 4:[address] [facility] Basophils Absolute 0.02 0.00 - 0.10 10*3/uL LAB HEMATOLOGY METHOD 12/19/2023 4:[address] [facility] Immature Granulocytes Absolute 0.05 0.00 - 0.06 10*3/uL LAB HEMATOLOGY METHOD 12/19/2023 4:[address] [facility] Blood Venous blood specimen / Unknown Venipuncture / Unknown 12/19/2023 4:26 AM EDT 12/19/2023 4:[address] [facility] - 12/19/2023 4:45 AM EDT Therapeutic decision making should be based on absolute values, rather than percentages. us Tian Mattson MD LAB BLOOD ORDERABLES Final Resu lt Performing Organization Address City/[facility]/ZIP Co de Phone Number [facility] [address] [place] [address] * Phosphorus (12/19/2023 4:26 AM EDT) Phosphorus, Plasma 3.5 2.5 - 4.5 mg/dL 12/19/2023 5:00 AM EDT [facility] Blood Venous blood specimen / Unknown Venipuncture / Unknown 12/19/2023 4:26 AM EDT 12/19/2023 4:32 AM EDT us Tian Mattson MD LAB BLOOD ORDERABLES Final Resu lt Performing Organization Address [facility]/[place] [address] * Magnesium (12/19/2023 4:26 AM EDT) Magnesium, Plasma 2.0 1.9 - 2.4 mg/dL 12/19/2023 5:[address] [facility] Blood Venous blood specimen / Unknown Venipuncture / Unknown 12/19/2023 4:26 AM EDT 12/19/2023 4:32 AM EDT us Tian Mattson MD LAB BLOOD ORDERABLES Final Resu lt Performing Organization Address City/[facility]/ZIP Co de Phone Number [facility] [address] [place] [address] * (ABNORMAL) Basic metabolic panel (12/19/2023 4:26 AM EDT) Glucose, Plasma 148(H) 74 - 99 mg/dL 12/19/2023 5:[address] [facility] BUN, Plasma 69(H) 7 - 21 mg/dL 12/19/2023 5:[address] [facility] Creatinine, Plasma 3.07(H) 0.70 - 1.20 mg/dL 12/19/2023 5:[address] [facility] BUN/Creatinine Ratio 12/19/2023 5:[address] [facility] Sodium, Plasma 139 136 - 145 mmol/L 12/19/2023 5:[address] [facility] Potassium, Plasma 4.6 3.6 - 4.9 mmol/L 12/19/2023 5:[address] [facility] Chloride, Plasma 101 97 - 107 mmol/L 12/19/2023 5:[address] [facility] CO2, Plasma 27 22 - 29 mmol/L 12/19/2023 5:[address] [facility] Anion Gap 11 6 - 16 mmol/L 12/19/2023 5:[address] [facility] Total Calcium, Plasma 8.4(L) 8.9 - 10.2 mg/dL 12/19/2023 5:[address] [facility] eGFRcr 23.0 mL/min/1.7 3m*2 12/19/2023 5:[address] [facility] Comment:Reported eGFRcr in m L/min/1.73m2 is based the CKD-EPI 2020 equation that does not use a race coefficient. Blood Venous blood specimen / Unknown Venipuncture / Unknown 12/19/2023 4:26 AM EDT 12/19/2023 4:32 AM EDT us Tian Mattson MD LAB BLOOD ORDERABLES Final Resu lt [facility] [address] [place] [address] * (ABNORMAL) POCT glucose meter (12/18/2023 8:42 PM EDT) [facility] POCT Glucose 189(H) 74 - 99 mg/dL [...] Comment 12/18/2023 8:44 PM EDT [facility] Hog Dropper ID GianfrancoRuth Ann 024 8:44 PM EDT [facility] Device ID [id number] 12/18/2023 8:44 PM EDT [facility] Specimen Type POC Capillary 12/18/2023 8:44 PM EDT [facility] Blood Capillary blood specimen / Unknown 12/18/2023 8:42 PM EDT 12/18/2023 8:44 PM EDT Tian Mattson MD LAB POINT OF CARE TE ST DOCKED DEVICE UNSOLICITED RESULTS Final Result Performing Organization Address City/State/[facility] Co de Phone Number [facility] [address] [place] [address] * (ABNORMAL) POCT glucose meter (12/18/2023 5:34 PM EDT) [facility] POCT Glucose 209(H) 74 - 99 mg/dL [...] 12/18/2023 5:36 PM EDT [facility] Hog Dropper ID Gurinder García 5:36 PM EDT [facility] Device ID [id number] 12/18/2023 5:36 PM EDT [facility] Specimen Type POC Capillary 12/18/2023 5:36 PM EDT [facility] Blood Capillary blood specimen / Unknown 12/18/2023 5:34 PM EDT 12/18/2023 5:36 PM EDT Tian Mattson MD LAB POINT OF CARE TE ST DOCKED DEVICE UNSOLICITED RESULTS Final Result Performing Organization Address City/[facility]/ZIP Co de Phone Number [facility] [address] [place] [address] * Magnesium (12/18/2023 3:06 PM EDT) Magnesium, Plasma 2.2 1.9 - 2.4 mg/dL 12/18/2023 6:[address] [facility] Blood Venous blood specimen / Unknown Venipuncture / Unknown 12/18/2023 3:06 PM EDT 12/18/2023 3:16 PM EDT Tian Mattson MD LAB BLOOD ORDERABLES Final Resu lt [facility] [address] [place] [address] * (ABNORMAL) Basic metabolic panel (12/18/2023 3:06 PM EDT) Glucose, Plasma 212(H) 74 - 99 mg/dL 12/18/2023 4:[address] [facility] BUN, Plasma 63(H) 7 - 21 mg/dL 12/18/2023 4:[address] [facility] Creatinine, Plasma 2.91(H) 0.70 - 1.20 mg/dL 12/18/2023 4:[address] [facility] BUN/Creatinine Ratio 22 12/18/2023 4:[address] [facility] Sodium, Plasma 137 136 - 145 mmol/L 12/18/2023 4:[address] [facility] Potassium, Plasma 4.3 3.6 - 4.9 mmol/L 12/18/2023 4:[address] [facility] Chloride, Plasma 102 97 - 107 mmol/L 12/18/2023 4:[address] [facility] CO2, Plasma 25 22 - 29 mmol/L 12/18/2023 4:[address] [facility] Anion Gap 10 6 - 16 mmol/L 12/18/2023 4:[address] [facility] Total Calcium, Plasma 7.8(L) 8.9 - 10.2 mg/dL 12/18/2023 4:[address] [facility] eGFRcr 24.5 mL/min/1.7 3m*2 12/18/2023 4:[address] [facility] Comment:Reported eGFRcr in m L/min/1.73m2 is based the CKD-EPI 2020 equation that does not use a race coefficient. Blood Venous blood specimen / Unknown Venipuncture / Unknown 12/18/2023 3:06 PM EDT 12/18/2023 3:16 PM EDT us Tian Mattson MD LAB BLOOD ORDERABLES Final Resu lt [facility] [address] [place] [address] * ECG Adult (12/18/2023 2:08 PM EDT) EKG DIAGNOSIS CLASS Abnormal MUSE ECG Ventricular Rate 92 BPM MUSE ECG Atrial Rate 92 BPM MUSE ECG MI Interval 156 ms MUSE ECG QRSD Interval 120 ms MUSE ECG QT Interval 372 ms MUSE ECG QTC Interval 460 ms MUSE ECG P [place] 60 degrees MUSE ECG R [place] 5 degrees MUSE ECG T Wave [place] 139 degrees MUSE ECG Diagnosis Normal sinus rhythm MUSE ECG Diagnosis Minimal voltage criteria for LVH, may be normal variant MUSE ECG Diagnosis ( MUSE ECG Diagnosis [place] product MUSE ECG Diagnosis ) MUSE ECG Diagnosis Possible MUSE ECG Diagnosis Anterior infarct MUSE ECG Diagnosis , age undetermined MUSE ECG Diagnosis Abnormal ECG MUSE ECG Diagnosis Confirmed by Harlan Ricketts ([id number]) on 12/19/2023 5:59:03 PM MUSE ECG 12/18/2023 2:08 PM EDT 12/19/2023 5:59 PM EDT us Tian Mattson MD ECG ORDERABLES Final Result Performing Organization Address City/[facility]/ZIP Co de Phone Number MUSE ECG * (ABNORMAL) POCT glucose meter (12/18/2023 12:32 PM EDT) [facility] POCT Glucose 198(H) 74 - 99 mg/dL [...] 12/18/2023 12:34 PM EDT [facility] Hog Dropper ID Gurinder García 12:34 PM EDT [facility] Device ID [id number] 12/18/2023 12:34 PM EDT [facility] Specimen Type POC Capillary 12/18/2023 12:34 PM EDT [facility] Blood Capillary blood specimen / Unknown 12/18/2023 12:32 PM EDT 12/18/2023 12:34 PM EDT Tian Mattson MD LAB POINT OF CARE TE ST DOCKED DEVICE UNSOLICITED RESULTS Final Result Performing Organization Address [facility] Co de Phone Number [facility] [address] [place] [address] * (ABNORMAL) POCT glucose meter (12/18/2023 8:45 AM EDT) [facility] POCT Glucose 196(H) 74 - 99 mg/dL [...] 12/18/2023 8:47 AM EDT [facility] Hog Dropper ID Gurinder García 8:47 AM EDT [facility] Device ID [id number] 12/18/2023 8:47 AM EDT [facility] Specimen Type POC Capillary 12/18/2023 8:47 AM EDT [facility] Blood Capillary blood specimen / Unknown 12/18/2023 8:45 AM EDT 12/18/2023 8:47 AM EDT us Tian Mattson MD LAB POINT OF CARE TE ST DOCKED DEVICE UNSOLICITED RESULTS Final Result [facility] [address] [place] [id number] * (ABNORMAL) CBC and differential (12/18/2023 4:43 AM EDT) WBC Count 3.82 3.70 - 10.30 10*3/uL LAB HEMATOLOGY METHOD 12/18/2023 4:[address] [facility] RBC Count 3.54(L) 4.60 - 6.10 10*6/uL LAB HEMATOLOGY METHOD 12/18/2023 4:[address] [facility] HGB 8.7(L) 13.7 - 17.5 g/dL LAB HEMATOLOGY METHOD 12/18/2023 4:[address] [facility] HCT 28.1(L) 40.0 - 51.0 % LAB HEMATOLOGY METHOD 12/18/2023 4:[address] [facility] Platelet Count 201 155 - 369 10*3/uL LAB HEMATOLOGY METHOD 12/18/2023 4:[address] [facility] MCV 79 79 - 98 fL LAB HEMATOLOGY METHOD 12/18/2023 4:[address] [facility] MCH 24.6(L) 26.0 - 32.0 pg LAB HEMATOLOGY METHOD 12/18/2023 4:[address] [facility] MCHC 31.0 30.7 - 35.5 g/dL LAB HEMATOLOGY METHOD 12/18/2023 4:[address] [facility] RDW 17.8(H) 11.5 - 14.5 % LAB HEMATOLOGY METHOD 12/18/2023 4:[address] [facility] MPV 10.7 8.8 - 12.5 fL LAB HEMATOLOGY METHOD 12/18/2023 4:[address] [facility] nRBC 0.0 <=0.0 per 100 WBCs LAB HEMATOLOGY METHOD 12/18/2023 4:[address] [facility] Differential Type Automated LAB HEMATOLOGY METHOD 12/18/2023 4:[address] [facility] Neutrophils % 59.0 % LAB HEMATOLOGY METHOD 12/18/2023 4:[address] [facility] Lymphocytes % 23.0 % LAB HEMATOLOGY METHOD 12/18/2023 4:[address] [facility] Monocytes % 15.0 % LAB HEMATOLOGY METHOD 12/18/2023 4:[address] [facility] Eosinophils % 2.0 % LAB HEMATOLOGY METHOD 12/18/2023 4:[address] [facility] Basophils % 0.0 % LAB HEMATOLOGY METHOD 12/18/2023 4:[address] [facility] Immature Granulocytes % 1.0 % LAB HEMATOLOGY METHOD 12/18/2023 4:[address] [facility] Neutrophils Absolute 2.27 1.60 - 6.10 10*3/uL LAB HEMATOLOGY METHOD 12/18/2023 4:[address] [facility] Lymphocytes Absolute 0.86(L) 1.20 - 3.90 10*3/uL LAB HEMATOLOGY METHOD 12/18/2023 4:[address] [facility] Monocytes Absolute 0.58 0.30 - 0.90 10*3/uL LAB HEMATOLOGY METHOD 12/18/2023 4:[address] [facility] Eosinophils Absolute 0.08 0.00 - 0.50 10*3/uL LAB HEMATOLOGY METHOD 12/18/2023 4:[address] [facility] Basophils Absolute 0.01 0.00 - 0.10 10*3/uL LAB HEMATOLOGY METHOD 12/18/2023 4:[address] [facility] Immature Granulocytes Absolute 0.02 0.00 - 0.06 10*3/uL LAB HEMATOLOGY METHOD 12/18/2023 4:[address] [facility] Blood Venous blood specimen / Unknown Venipuncture / Unknown 12/18/2023 4:43 AM EDT 12/18/2023 4:[address] [facility] - 12/18/2023 4:58 AM EDT Therapeutic decision making should be based on absolute values, rather than percentages. us Tian Mattson MD LAB BLOOD ORDERABLES Final Resu lt Performing Organization Address [facility]/ZIP Co de Phone Number [facility] [address] [place] [address] * Magnesium (12/18/2023 4:42 AM EDT) Magnesium, Plasma 1.9 1.9 - 2.4 mg/dL 12/18/2023 5:[address] [facility] Blood Venous blood specimen / Unknown Venipuncture / Unknown 12/18/2023 4:42 AM EDT 12/18/2023 4:49 AM EDT us Tian Mattson MD LAB BLOOD ORDERABLES Final Resu lt Performing Organization Address [facility] Co de Phone Number [facility] [address] [place] [address] * (ABNORMAL) Basic metabolic panel (12/18/2023 4:42 AM EDT) Glucose, Plasma 157(H) 74 - 99 mg/dL 12/18/2023 5:[address] [facility] BUN, Plasma 68(H) 7 - 21 mg/dL 12/18/2023 5:[address] [facility] Creatinine, Plasma 3.19(H) 0.70 - 1.20 mg/dL 12/18/2023 5:[address] [facility] BUN/Creatinine Ratio 12/18/2023 5:[address] [facility] Sodium, Plasma 139 136 - 145 mmol/L 12/18/2023 5:[address] [facility] Potassium, Plasma 4.8 3.6 - 4.9 mmol/L 12/18/2023 5:[address] [facility] Chloride, Plasma 104 97 - 107 mmol/L 12/18/2023 5:[address] [facility] CO2, Plasma 25 22 - 29 mmol/L 12/18/2023 5:[address] [facility] Anion Gap 10 6 - 16 mmol/L 12/18/2023 5:[address] [facility] Total Calcium, Plasma 8.0(L) 8.9 - 10.2 mg/dL 12/18/2023 5:[address] [facility] eGFRcr 22.0 mL/min/1.7 3m*2 12/18/2023 5:[address] [facility] Comment:Reported eGFRcr in m L/min/1.73m2 is based the CKD-EPI 2020 equation that does not use a race coefficient. Blood Venous blood specimen / Unknown Venipuncture / Unknown 12/18/2023 4:42 AM EDT 12/18/2023 4:49 AM EDT us Tian Mattson MD LAB BLOOD ORDERABLES Final Resu lt Performing Organization Address [facility]/ZIP Co de Phone Number [facility] [address] [place] [address] * Lavender Top (12/17/2023 9:37 PM EDT) Extra Hold for add-ons 12/18/2023 12:[address] [facility] Comment:Auto resulted. Blood Venous blood specimen / Unknown 12/17/2023 9:37 PM EDT 12/17/2023 9:57 PM EDT us Tian Mattson MD LAB BLOOD ORDERABLES Final Resu lt [facility] [address] [place] [address] * Blood Culture (Aerobic/Anaerobet Set) (12/17/2023 9:11 PM EDT) Culture No growth at day 5 MIKE 12/22/2023 10:[address] [facility] Blood Structure of antecubital vein / Unknown Venipuncture / Unknown 12/17/2023 9:11 PM EDT 12/17/2023 9:47 PM EDT us Tian Mattson MD LAB MICROBIOLOGY - GENERAL ORDE MARYURILES Final Result Performing Organization Address [facility]/ZIP Co de Phone Number [facility] [address] [place] [address] * Phosphorus (12/17/2023 9:11 PM EDT) Phosphorus, Plasma 3.5 2.5 - 4.5 mg/dL 12/17/2023 10:[address] [facility] Blood Venous blood specimen / Unknown Venipuncture / Unknown 12/17/2023 9:11 PM EDT 12/17/2023 9:57 PM EDT us Tian Mattson MD LAB BLOOD ORDERABLES Final Resu lt Performing Organization Address [facility] Co de Phone Number [facility] [address] [place] [address] * Magnesium (12/17/2023 9:11 PM EDT) Magnesium, Plasma 1.9 1.9 - 2.4 mg/dL 12/17/2023 10:[address] [facility] Blood Venous blood specimen / Unknown Venipuncture / Unknown 12/17/2023 9:11 PM EDT 12/17/2023 9:57 PM EDT us Tian Mattson MD LAB BLOOD ORDERABLES Final Resu lt Performing Organization Address [facility] Co de Phone Number [facility] [address] [place] [address] * (ABNORMAL) Basic metabolic panel (12/17/2023 9:11 PM EDT) Glucose, Plasma 205(H) 74 - 99 mg/dL 12/17/2023 10:[address] [facility] BUN, Plasma 68(H) 7 - 21 mg/dL 12/17/2023 10:[address] [facility] Creatinine, Plasma 3.04(H) 0.70 - 1.20 mg/dL 12/17/2023 10:[address] [facility] BUN/Creatinine Ratio 22 12/17/2023 10:[address] [facility] Sodium, Plasma 138 136 - 145 mmol/L 12/17/2023 10:[address] [facility] Potassium, Plasma 4.7 3.6 - 4.9 mmol/L 12/17/2023 10:[address] [facility] Chloride, Plasma 103 97 - 107 mmol/L 12/17/2023 10:[address] [facility] CO2, Plasma 25 22 - 29 mmol/L 12/17/2023 10:[address] [facility] Anion Gap 10 6 - 16 mmol/L 12/17/2023 10:[address] [facility] Total Calcium, Plasma 8.3(L) 8.9 - 10.2 mg/dL 12/17/2023 10:[address] [facility] eGFRcr 23.3 mL/min/1.7 3m*2 12/17/2023 10:[address] [facility] Comment:Reported eGFRcr in m L/min/1.73m2 is based the CKD-EPI 2020 equation that does not use a race coefficient. Blood Venous blood specimen / Unknown Venipuncture / Unknown 12/17/2023 9:11 PM EDT 12/17/2023 9:57 PM EDT us Tian Mattson MD LAB BLOOD ORDERABLES Final Resu lt [facility] [address] [place] [address] * (ABNORMAL) POCT glucose meter (12/17/2023 7:32 PM EDT) POCT Glucose 198(H) 74 - 99 mg/dL 12/17/2023 7:34 PM EDT [facility] Comment:Accuracy of a [...] Comment 12/17/2023 7:34 PM EDT [facility] Hog Dropper ID Michele Carmona II 12/17/2023 7:34 PM EDT [facility] Device ID [id number] 12/17/2023 7:34 PM EDT [facility] Specimen Type POC Capillary 12/17/2023 7:34 PM EDT [facility] Blood Capillary blood specimen / Unknown 12/17/2023 7:32 PM EDT 12/17/2023 7:34 PM EDT us Tian Mattson MD LAB POINT OF CARE TE ST DOCKED DEVICE UNSOLICITED RESULTS Final Result Performing Organization Address City/[facility] Co de Phone Number [facility] [address] [place] [address] * (ABNORMAL) POCT glucose meter (12/17/2023 6:01 PM EDT) [facility] Signature POCT Glucose 215(H) 74 - [...] Comment 12/17/2023 6:03 PM EDT [facility] Hog Dropper ID Dottie Uriarte 12/17/2023 6:03 PM EDT [facility] Device ID [id number] 12/17/2023 6:03 PM EDT [facility] Specimen Type POC Capillary 12/17/2023 6:03 PM EDT [facility] Blood Capillary blood specimen / Unknown 12/17/2023 6:01 PM EDT 12/17/2023 6:03 PM EDT us Tian Mattson MD LAB POINT OF CARE TE ST DOCKED DEVICE UNSOLICITED RESULTS Final Result Performing Organization Address City/[facility]/ZIP Co de Phone Number [facility] [address] [place] [address] * (ABNORMAL) Basic metabolic panel (12/17/2023 2:19 PM EDT) Glucose, Plasma 263(H) 74 - 99 mg/dL 12/17/2023 3:[address] [facility] BUN, Plasma 68(H) 7 - 21 mg/dL 12/17/2023 3:[address] [facility] Creatinine, Plasma 2.81(H) 0.70 - 1.20 mg/dL 12/17/2023 3:[address] [facility] BUN/Creatinine Ratio 24 12/17/2023 3:[address] [facility] Sodium, Plasma 135(L) 136 - 145 mmol/L 12/17/2023 3:[address] [facility] Potassium, Plasma 5.5(H) 3.6 - 4.9 mmol/L 12/17/2023 3:[address] [facility] Chloride, Plasma 103 97 - 107 mmol/L 12/17/2023 3:[address] [facility] CO2, Plasma 26 22 - 29 mmol/L 12/17/2023 3:[address] [facility] Anion Gap 6 6 - 16 mmol/L 12/17/2023 3:[address] [facility] Total Calcium, Plasma 8.1(L) 8.9 - 10.2 mg/dL 12/17/2023 3:[address] [facility] eGFRcr 25.6 mL/min/1.7 3m*2 12/17/2023 3:[address] [facility] Comment:Reported eGFRcr in m L/min/1.73m2 is based the CKD-EPI 2020 equation that does not use a race coefficient. Blood Venous blood specimen / Unknown Venipuncture / Unknown 12/17/2023 2:19 PM EDT 12/17/2023 2:58 PM EDT us Tian Mattson MD LAB BLOOD ORDERABLES Final Resu lt [facility] [address] [place] [address] * (ABNORMAL) POCT glucose meter (12/17/2023 12:56 PM EDT) [facility] POCT Glucose 217(H) 74 - 99 mg/dL [...] Comment 12/17/2023 12:58 PM EDT [facility] Hog Dropper ID Dottie Uriarte 12/17/2023 12:58 PM EDT [facility] Device ID [id number] 12/17/2023 12:58 PM EDT [facility] Specimen Type POC Capillary 12/17/2023 12:58 PM EDT [facility] Blood Capillary blood specimen / Unknown 12/17/2023 12:56 PM EDT 12/17/2023 12:58 PM EDT us Tian Mattson MD LAB POINT OF CARE TE ST DOCKED DEVICE UNSOLICITED RESULTS Final Result Performing Organization Address City/[facility]/ZIP Co de Phone Number [facility] [address] [place] [address] * Ferritin (12/17/2023 9:51 AM EDT) [facility] Ferritin, Serum 131 20 - 400 ng/mL 12/17/2023 10:[address] [facility] Blood Venous blood specimen / Unknown Venipuncture / Unknown 12/17/2023 9:51 AM EDT 12/17/2023 9:59 AM EDT us Tian Mattson MD LAB BLOOD ORDERABLES Final Resu lt [facility] [address] [place] [address] * (ABNORMAL) Blood gas panel, venous (12/17/2023 9:51 AM EDT) pH, Venous 7.35 7.32 - 7.43 LAB HEMATOLOGY METHOD 12/17/2023 10:[address] [facility] pCO2, Venous 47 40 - 55 mmHg LAB HEMATOLOGY METHOD 12/17/2023 10:[address] [facility] pO2, Venous 44(H) 25 - 40 mmHg LAB HEMATOLOGY METHOD 12/17/2023 10:[address] [facility] SO2, Measured, Venous 75 65 - 80 % LAB HEMATOLOGY METHOD 12/17/2023 10:[address] [facility] Base Excess, Venous -0.1 -2.0 - 3.0 mmol/L LAB HEMATOLOGY METHOD 12/17/2023 10:[address] [facility] Bicarbonate, Calculated, Venous 26 22 - 26 mmol/L LAB HEMATOLOGY METHOD 12/17/2023 10:[address] [facility] Hematocrit, Whole Blood 28.3(L) 40.0 - 51.0 % LAB HEMATOLOGY METHOD 12/17/2023 10:[address] [facility] Sodium, Whole Blood 138 136 - 145 mmol/L LAB HEMATOLOGY METHOD 12/17/2023 10:[address] [facility] Potassium, Whole Blood 4.6 3.6 - 4.9 mmol/L LAB HEMATOLOGY METHOD 12/17/2023 10:[address] [facility] Chloride, Whole Blood 106 97 - 107 mmol/L LAB HEMATOLOGY METHOD 12/17/2023 10:[address] [facility] Glucose, Whole Blood 196(H) 74 - 99 mg/dL LAB HEMATOLOGY METHOD 12/17/2023 10:[address] [facility] Lactate, Venous, Whole Blood 0.8 0.5 - 2.2 mmol/L LAB HEMATOLOGY METHOD 12/17/2023 10:[address] [facility] Ionized Calcium, Whole Blood 4.5(L) 4.6 - 5.1 mg/dL LAB HEMATOLOGY METHOD 12/17/2023 10:[address] [facility] Blood Venous blood specimen / Unknown Venipuncture / Unknown 12/17/2023 9:51 AM EDT 12/17/2023 10:01 AM EDT Tian Mattson MD LAB BLOOD ORDERABLES Final Resu lt Performing Organization Address [facility] Co de Phone Number [facility] [address] [place] [address] * (ABNORMAL) POCT glucose meter (12/17/2023 8:46 [...] for testing. Comment 12/17/2023 8:48 AM EDT [facility] [facility] Hog Dropper ID Miranda Bear 12/17/2023 8:48 AM EDT [facility] [facility] Device ID [id number] 12/17/2023 8:48 AM EDT [facility] Specimen Type POC Capillary 12/17/2023 8:48 AM EDT [facility] Blood Capillary blood specimen / Unknown 12/17/2023 8:46 AM EDT 12/17/2023 8:48 AM EDT Tian Mattson MD LAB POINT OF CARE TE ST DOCKED DEVICE UNSOLICITED RESULTS Final Result Performing Organization Address [facility] Co de Phone Number [facility] [address] [place] [address] * US Abdomen Doppler Limited (12/17/2023 8:31 [...] Urine 116 mg/dL 12/17/2023 7:[address] [facility] Creatinine, Urine 37 mg/dL 12/17/2023 7:[address] [facility] Protein/Creatin ine Ratio 3.1 mg/mg Creat 12/17/2023 7:[address] [facility] Urine Urine specimen obtained by clean catch procedure / Unknown Non-blood Collection / Unknown 12/17/2023 6:18 AM EDT 12/17/2023 6:22 AM EDT us Tian Mattson MD LAB URINE ORDERABLES Final Resu lt Performing Organization Address City/[facility]/ZIP Co de Phone Number [facility] [address] [place] [address] * Lactate, venous (12/17/2023 5:10 AM EDT) Lactate, Venous, Whole Blood 1.0 0.5 - 2.2 mmol/L LAB HEMATOLOGY METHOD 12/17/2023 5:[address] [facility] Blood Venous blood specimen / Unknown Venipuncture / Unknown 12/17/2023 5:10 AM EDT 12/17/2023 5:18 AM EDT us Tian Mattson MD LAB BLOOD ORDERABLES Final Resu lt [facility] [address] [place] [address] * APTT (12/17/2023 4:00 AM EDT) aPTT 30 25 - 35 sec 12/17/2023 4:[address] [facility] Blood Venous blood specimen / Unknown Venipuncture / Unknown 12/17/2023 4:00 AM EDT 12/17/2023 4:02 AM EDT us Tian Mattson MD LAB BLOOD ORDERABLES Final Resu lt [facility] [address] [place] [address] * (ABNORMAL) Protime-INR (12/17/2023 4:00 AM EDT) Prothrombin Time 15.3(H) 12.0 - 14.3 sec 12/17/2023 4:[address] [facility] INR 1.2(H) 0.9 - 1.1 12/17/2023 4:[address] [facility] Blood Venous blood specimen / Unknown Venipuncture / Unknown 12/17/2023 4:00 AM EDT 12/17/2023 4:[address] [facility] - 12/17/2023 4:16 AM EDT OPTIMAL [...] [place] ? INR 2.5 to 3.5 us Tian Mattson MD LAB BLOOD ORDERABLES Final Resu lt [facility] [address] [place] [address] * Lipid panel (12/17/2023 1:47 AM EDT) Cholesterol, Plasma 136 <200 mg/dL 12/17/2023 1:[address] [facility] Comment: Cholesterol Reference Range (age >17 years): Desirable ? <200 mg/dL Borderline ? 200 to 239 mg/dL Undesirable ? >239 mg/dL HDL 51 >=40 mg/dL 12/17/2023 1:[address] [facility] Comment: HDL Cholesterol Reference Ranges (age >17 years): Female, acceptable ?? > or = 50 mg/dL Male, acceptable ? > or = 40 mg/dL Triglycerides, Plasma 112 <150 mg/dL 12/17/2023 1:[address] [facility] Comment: Triglyceride Reference Range (age >17 years): Desirable: ??<150 mg/dL Borderline high: ??150 to 199 mg/dL High: ??200 to 499 mg/dL Very high: ??>499 mg/dL Increased risk of pancreatitis: ??>1000 mg/dL Cholesterol/HDL Ratio 3 12/17/2023 1:[address] [facility] LDL, Calculated 65 <100 mg/dL 1:[address] [facility] Comment: LDL Cholesterol Reference Range [...] 12 hours? Unknown 12/17/2023 1:[address] [facility] Blood Venous blood specimen / Unknown Venipuncture / Unknown 12/17/2023 1:47 AM EDT 12/17/2023 1:57 AM EDT us Tian Mattson MD LAB BLOOD ORDERABLES Final Resu lt [facility] [address] [place] [address] * (ABNORMAL) Iron & Total Iron Binding Capacity, Plasma (Includes Transferrin) (12/17/2023 1:47 AM EDT) Iron, Plasma 23(L) 50 - 170 ug/dL 12/17/2023 10:[address] [facility] Transferrin, Plasma 202 200 - 360 mg/dL 12/17/2023 10:[address] [facility] Total Iron Binding Capacity, Plasma 253 240 - 450 ug/mL 12/17/2023 10:[address] [facility] Transferrin Saturation 9(L) 14 - 50 % 12/17/2023 10:[address] [facility] Blood Venous blood specimen / Unknown Venipuncture / Unknown 12/17/2023 1:47 AM EDT 12/17/2023 1:57 AM EDT us Tian Mattson MD LAB BLOOD ORDERABLES Final Resu lt [facility] [address] [place] [address] * (ABNORMAL) Hemoglobin A1c (12/17/2023 1:47 AM EDT) Hemoglobin A1c 8.0(H) <5.7 % 12/17/2023 9:[address] [facility] Blood Venous blood specimen / Unknown Venipuncture / Unknown 12/17/2023 1:47 AM EDT 12/17/2023 1:[address] [facility] - 12/17/2023 9:23 AM EDT HA1C Interpretive Data: Diagnosis of Diabetes: Diabetic > or = 6.5% Pre-diabetic 5.7 to 6.4% Non-diabetic < or = 5.6% Glycemic Targets for Type I and Type II Diabetics: Non- Adults <7.0% Adults <6.0% Children and Adolescents <7.5% Source: ??[employer] Diabetes [employer]. Standards of medical care in diabetes,2017. Diabetes Care.2017:40 (suppl 1):S1-S135. HbA1c assay performed by an ion-exchange chromatography method that is certified traceable to the [facility]. Tian Mattson MD LAB BLOOD ORDERABLES Final Resu lt Performing Organization Address [facility] de Phone Number [facility] [address] [place] [address] * SARS CoV-2/COVID-19 by PCR (12/17/2023 1:47 AM EDT) Pathologist [facility] SARS CoV-2/COVID-1 9 RNA PCR Result Not Detected Not Detected 12/17/2023 2:54 AM EDT [facility] Swab Nasopharyngeal structure / Unknown Non-blood Collection / Unknown 12/17/2023 1:47 AM EDT 12/17/2023 2:[address] [facility] - 12/17/2023 2:54 AM EDT This [...] Mattson MD LAB MICROBIOLOGY - GENERAL ORDE [facility] Final Result Performing Organization Address [facility] Co de Phone Number [facility] [address] [place] [address] * Multi Drug Resistance Test (12/17/2023 1:47 AM EDT) [facility] Culture No Multi Drug Resistant Organisms Isolated 12/18/2023 10:[address] [facility] Swab (Nares and Josefina Rectal) Non-blood Collection / Unknown 12/17/2023 1:47 AM EDT 12/17/2023 2:09 AM EDT us Tian Mattson MD LAB MICROBIOLOGY - GENERAL OSEAS ALLEN Final Result [facility] [address] [place] [address] * (ABNORMAL) Urinalysis, manual only (12/17/2023 1:47 AM EDT) Color, Urine Yellow LAB URINALYSIS - AUTOMATED METHOD 12/17/2023 1:[address] [facility] Clarity, Urine Clear LAB URINALYSIS - AUTOMATED METHOD 12/17/2023 1:[address] [facility] Spec Aleppo, Urine 1.020 1.005 - 1.030 LAB URINALYSIS - AUTOMATED METHOD 12/17/2023 1:[address] [facility] pH, Urine 5.5 4.5 to 8 LAB URINALYSIS - AUTOMATED METHOD 12/17/2023 1:[address] [facility] Protein, Urine >=300(A) Negative mg/dL LAB URINALYSIS - AUTOMATED METHOD 12/17/2023 1:[address] [facility] Glucose, Urine 500(A) Negative mg/dL LAB URINALYSIS - AUTOMATED METHOD 12/17/2023 1:[address] [facility] Ketones, Urine Negative Negative mg/dL LAB URINALYSIS - AUTOMATED METHOD 12/17/2023 1:[address] [facility] Blood, Urine Small(A) Negative LAB URINALYSIS - AUTOMATED METHOD 12/17/2023 1:[address] [facility] Bilirubin, Urine Negative Negative LAB URINALYSIS - AUTOMATED METHOD 12/17/2023 1:[address] [facility] Urobilinogen, Urine 0.2 0.2 to 1.0 mg/dL LAB URINALYSIS - AUTOMATED METHOD 12/17/2023 1:[address] [facility] Leukocytes, Urine Negative Negative LAB URINALYSIS - AUTOMATED METHOD 12/17/2023 1:[address] [facility] Nitrite, Urine Negative Negative LAB URINALYSIS - AUTOMATED METHOD 12/17/2023 1:[address] [facility] Urine Urine specimen obtained by clean catch procedure / Unknown Non-blood Collection / Unknown 12/17/2023 1:47 AM EDT 12/17/2023 1:50 AM EDT Tian Mattson MD LAB URINE ORDERABLES Final Resu lt Performing Organization Address City/[facility]/ZIP Co de Phone Number [facility] [address] [place] [address] * (ABNORMAL) N-Terminal Probnp (12/17/2023 1:47 AM EDT) N-Terminal, PROBNP, Plasma 64,759(H) 0 - 899 pg/mL 12/17/2023 2:[address] [facility] Blood Venous blood specimen / Unknown Venipuncture / Unknown 12/17/2023 1:47 AM EDT 12/17/2023 1:57 AM EDT Tian Mattson MD LAB BLOOD ORDERABLES Final Resu lt Performing Organization Address City/[facility]/ZIP Co de Phone Number [facility] [address] [place] [address] * Magnesium (12/17/2023 1:47 AM EDT) Magnesium, Plasma 2.1 1.9 - 2.4 mg/dL 12/17/2023 2:40 AM EDT [facility] Blood Venous blood specimen / Unknown Venipuncture / Unknown 12/17/2023 1:47 AM EDT 12/17/2023 1:57 AM EDT Tian Mattson MD LAB BLOOD ORDERABLES Final Resu lt [facility] [address] [place] [address] * (ABNORMAL) Comprehensive metabolic panel (12/17/2023 1:47 AM EDT) Glucose, Plasma 267(H) 74 - 99 mg/dL 12/17/2023 2:[address] [facility] BUN, Plasma 70(H) 7 - 21 mg/dL 12/17/2023 2:[address] [facility] Creatinine, Plasma 3.18(H) 0.70 - 1.20 mg/dL 12/17/2023 2:[address] [facility] BUN/Creatinine Ratio 22 12/17/2023 2:[address] [facility] Sodium, Plasma 139 136 - 145 mmol/L 12/17/2023 2:[address] [facility] Potassium, Plasma 5.1(H) 3.6 - 4.9 mmol/L 12/17/2023 2:[address] [facility] Chloride, Plasma 108(H) 97 - 107 mmol/L 12/17/2023 2:[address] [facility] CO2, Plasma 22 22 - 29 mmol/L 12/17/2023 2:[address] [facility] Anion Gap 9 6 - 16 mmol/L 12/17/2023 2:[address] [facility] Total Calcium, Plasma 8.1(L) 8.9 - 10.2 mg/dL 12/17/2023 2:[address] [facility] Total Protein 5.6(L) 6.3 - 7.9 g/dL 12/17/2023 2:[address] [facility] Albumin, Plasma 2.9(L) 3.5 - 5.2 g/dL 12/17/2023 2:[address] [facility] AST, Plasma 32 10 - 50 U/L 12/17/2023 2:[address] [facility] ALT, Plasma 11 10 - 50 U/L 12/17/2023 2:[address] [facility] Alkaline Phosphatase, Plasma 154(H) 40 - 115 U/L 12/17/2023 2:[address] [facility] Total Bilirubin, Plasma 0.4 0.2 - 1.1 mg/dL 12/17/2023 2:[address] [facility] eGFRcr 22.0 mL/min/1.7 3m*2 12/17/2023 2:[address] [facility] Comment:Reported eGFRcr in m L/min/1.73m2 is based the CKD-EPI 2020 equation that does not use a race coefficient. Blood Venous blood specimen / Unknown Venipuncture / Unknown 12/17/2023 1:47 AM EDT 12/17/2023 1:57 AM EDT us Tian Mattson MD LAB BLOOD ORDERABLES Final Resu lt [facility] [address] [place] [address] * (ABNORMAL) CBC W/O Differential (12/17/2023 1:47 AM EDT) WBC Count 5.24 3.70 - 10.30 10*3/uL LAB HEMATOLOGY METHOD 12/17/2023 1:[address] [facility] RBC Count 3.99(L) 4.60 - 6.10 10*6/uL LAB HEMATOLOGY METHOD 12/17/2023 1:[address] [facility] HGB 9.8(L) 13.7 - 17.5 g/dL LAB HEMATOLOGY METHOD 12/17/2023 1:[address] [facility] HCT 31.2(L) 40.0 - 51.0 % LAB HEMATOLOGY METHOD 12/17/2023 1:[address] [facility] Platelet Count 210 155 - 369 10*3/uL LAB HEMATOLOGY METHOD 12/17/2023 1:[address] [facility] MCV 78(L) 79 - 98 fL LAB HEMATOLOGY METHOD 12/17/2023 1:[address] [facility] MCH 24.6(L) 26.0 - 32.0 pg LAB HEMATOLOGY METHOD 12/17/2023 1:[address] [facility] MCHC 31.4 30.7 - 35.5 g/dL LAB HEMATOLOGY METHOD 12/17/2023 1:[address] [facility] RDW 17.8(H) 11.5 - 14.5 % LAB HEMATOLOGY METHOD 12/17/2023 1:[address] [facility] MPV 10.8 8.8 - 12.5 fL LAB HEMATOLOGY METHOD 12/17/2023 1:[address] [facility] nRBC 0.0 <=0.0 per 100 WBCs LAB HEMATOLOGY METHOD 12/17/2023 1:[address] [facility] Blood Venous blood specimen / Unknown Venipuncture / Unknown 12/17/2023 1:47 AM EDT 12/17/2023 1:50 AM EDT us Tian Mattson MD LAB BLOOD ORDERABLES Final Resu lt [facility] [address] [place] [address] * (ABNORMAL) Bacterial ID Gram Positive (12/17/2023 1:36 AM EDT) [facility] Staphylococcus Result Detected( A) Not Detected 12/17/2023 10:[address] [facility] Comment:Assess if contaminan t or clinically relevant pathogen. Consider clinical stability and immune status of patient. Staphylococcus epidermidis Result Detected( A) Not Detected 12/17/2023 10:[address] [facility] Comment:Assess if contaminan t or clinically relevant pathogen. Consider clinical stability and immune status of patient. MECA Result Detected( A) Not Detected 12/17/2023 10:[address] [facility] Blood Structure of antecubital vein / Unknown Venipuncture / Unknown 12/17/2023 1:36 AM EDT 12/17/2023 2:[address] [facility] - 12/17/2023 10:00 PM EDT [...] tested. Tian Mattson MD LAB MICROBIOLOGY - [facility] Final Result [facility] [address] [place] [address] * (ABNORMAL) Blood Culture (Aerobic/Anaerobet Set) (12/17/2023 1:36 AM EDT) [facility] Culture Biotype 1 Staphylococcus coagulase negative(AA) 12/24/2023 11:[address] [facility] Comment: Isolated from aerobic culture bottle only. Isolated from one bottle only in a 24-hour period. If workup required, contact bacteriology at [phone]. This organism may be associated with a contaminated culture. The organism value for this result has been updated. These results have been appended to the previously preliminary verified report. Culture Biotype 2 Staphylococcus coagulase negative(AA) 12/24/2023 11:[address] [facility] Comment: Isolated from aerobic culture bottle [...] cocci in clusters(AA) 12/24/2023 11:[address] [facility] Comment: Organism seen in Aerobic Blood Culture Bottle. Positivity Date and Time to Detection: 12/17/2023 at 00 Day(s) and 17 Hour(s). This is an appended report. These results have been appended to a previously preliminary verified report. Blood Structure of antecubital vein / Unknown Venipuncture / Unknown 12/17/2023 1:36 AM EDT 12/17/2023 2:09 AM EDT [facility] 12/24/2023 11:44 AM EDT Low blood volume submitted, results may be compromised us Tian Mattson MD LAB MICROBIOLOGY - GENERAL ORDAnna ALLEN Final Result Performing Organization Address [facility] Co de Phone Number [facility] [address] [place] [address] * (ABNORMAL) POCT glucose meter (12/17/2023 1:22 AM EDT) [facility] POCT Glucose 260(H) 74 - 99 mg/dL [...] 12/17/2023 1:24 AM EDT [facility] Hog Dropper ID Oscar White 12/17/2023 1:24 AM EDT [facility]ALTH[facility] Device ID [id number] 12/17/2023 1:24 AM EDT [facility]ALTH[facility]ARE LAB Specimen Type POC Capillary 12/17/2023 1:24 AM EDT [facility] Blood Capillary blood specimen / Unknown 12/17/2023 1:22 AM EDT 12/17/2023 1:24 AM EDT us Tian Mattson MD LAB POINT OF CARE TE ST DOCKED DEVICE UNSOLICITED RESULTS Final Result Performing Organization Address City/[facility] Co de Phone Number HEALTHCARE [facility] [address] [place] [address] * ECG Adult (12/17/2023 1:08 AM EDT) Pathologist [facility] EKG DIAGNOSIS CLASS Abnormal MUSE ECG Ventricular Rate 87 BPM MUSE ECG Atrial Rate 87 BPM MUSE ECG MI Interval 166 ms MUSE ECG QRSD Interval 114 ms MUSE ECG QT Interval 368 ms MUSE ECG QTC Interval 442 ms MUSE ECG P [place] 77 degrees MUSE ECG R [place] -1 degrees MUSE ECG T Wave [place] 144 degrees MUSE ECG Diagnosis Normal sinus rhythm MUSE ECG Diagnosis Incomplete left bundle branch block MUSE ECG Diagnosis Nonspecific T wave abnormality MUSE ECG Diagnosis Abnormal ECG MUSE ECG Diagnosis Confirmed by Zia Bradford ([id number]) on 12/17/2023 10:51:50 AM MUSE ECG 12/17/2023 1:08 AM EDT 12/17/2023 10:51 AM EDT us Tian Mattson MD ECG ORDERABLES Final Result Performing Organization Address City/[facility]/ZIP Co de Phone Number MUSE ECG * (ABNORMAL) Troponin T, High Sensitivity, 2 Hour, Plasma (12/16/2023 8:54 PM EDT) Troponin T, High Sensitivity, 2 Hour 94(H) <19 ng/L 12/16/2023 9:[address] [facility] Troponin Delta 4 <10 ng/L 12/16/2023 9:[address] [facility] Troponin Delta Interpretation Not Significant 12/16/2023 9:[address] [facility] Comment:Not Significant. No acute change in troponin observed between the baseline and 2 hour samples. Blood Venous blood specimen / Unknown Venipuncture / Unknown 12/16/2023 8:54 PM EDT 12/16/2023 8:57 PM EDT us Carmencita Slaughter MD LAB BLOOD ORDERABLES Final Res ult Performing Organization Address City/[facility]/ZIP Co de Phone Number [facility] [address] [place] [address] * ECG Adult (12/16/2023 8:29 PM EDT) EKG DIAGNOSIS CLASS Abnormal MUSE ECG Ventricular Rate 92 BPM MUSE ECG Atrial Rate 92 BPM MUSE ECG MI Interval 154 ms MUSE ECG QRSD Interval 116 ms MUSE ECG QT Interval 360 ms MUSE ECG QTC Interval 445 ms MUSE ECG P [place] 62 degrees MUSE ECG R [place] -4 degrees MUSE ECG T Wave [place] 111 degrees MUSE ECG Diagnosis Normal sinus rhythm MUSE ECG Diagnosis Anterior infarct MUSE ECG Diagnosis , age undetermined MUSE ECG Diagnosis Abnormal ECG MUSE ECG Diagnosis Confirmed by Darrin Mitchell ([id number]) on 12/17/2023 9:21:17 AM MUSE ECG 12/16/2023 [...] - 1.7 ng/dL 12/16/2023 8:[address] [facility] Blood Venous blood specimen / Unknown Venipuncture / Unknown 12/16/2023 6:42 PM EDT 12/16/2023 6:52 PM EDT us Carmencita Slaughter MD LAB BLOOD ORDERABLES Final Res ult Performing Organization Address City/[facility]/ZIP Co de Phone Number [facility] [address] [place] [address] * Thyroid Stimulating Hormone, Plasma (12/16/2023 6:42 PM EDT) Pathologist [facility] Thyroid Stimulating Hormone, Plasma 2.51 0.40 - 4.20 uIU/mL 12/16/2023 7:[address] [facility] Blood Venous blood specimen / Unknown Venipuncture / Unknown 12/16/2023 6:42 PM EDT 12/16/2023 6:52 PM EDT us Carmencita Slaughter MD LAB BLOOD ORDERABLES Final Res ult Performing Organization Address [facility] [place] [address] * (ABNORMAL) BNP (12/16/2023 6:42 PM EDT) N-Terminal, PROBNP, Plasma 58,349(H) 0 - 899 pg/mL 12/16/2023 8:[address] [facility] Blood Venous blood specimen / Unknown Venipuncture / Unknown 12/16/2023 6:42 PM EDT 12/16/2023 6:52 PM EDT us Carmencita Slaughter MD LAB BLOOD ORDERABLES Final Res ult Performing Organization Address City/[facility]/[place] [address] * (ABNORMAL) Troponin now and 120 min (12/16/2023 6:42 PM EDT) Pathologist [facility] Troponin T, High Sensitivity, 0 Hour 98(H) <19 ng/L 12/16/2023 7:[address] [facility] Blood Venous blood specimen / Unknown Venipuncture / Unknown 12/16/2023 6:42 PM EDT 12/16/2023 6:52 PM EDT us Carmencita Slaughter MD LAB BLOOD ORDERABLES Final Res ult [facility] [address] [place] [address] * (ABNORMAL) CBC w/diff (12/16/2023 6:42 PM EDT) [facility] WBC Count 6.37 3.70 - 10.30 10*3/uL LAB HEMATOLOGY METHOD 12/16/2023 6:[address] [facility] RBC Count 4.14(L) 4.60 - 6.10 10*6/uL LAB HEMATOLOGY METHOD 12/16/2023 6:[address] [facility] HGB 10.1(L) 13.7 - 17.5 g/dL LAB HEMATOLOGY METHOD 12/16/2023 6:[address] [facility] HCT 33.1(L) 40.0 - 51.0 % LAB HEMATOLOGY METHOD 12/16/2023 6:[address] [facility] Platelet Count 202 155 - 369 10*3/uL LAB HEMATOLOGY METHOD 12/16/2023 6:[address] [facility] MCV 80 79 - 98 fL LAB HEMATOLOGY METHOD 12/16/2023 6:[address] [facility] MCH 24.4(L) 26.0 - 32.0 pg LAB HEMATOLOGY METHOD 12/16/2023 6:[address] [facility] MCHC 30.5(L) 30.7 - 35.5 g/dL LAB HEMATOLOGY METHOD 12/16/2023 6:[address] [facility] RDW 17.6(H) 11.5 - 14.5 % LAB HEMATOLOGY METHOD 12/16/2023 6:[address] [facility] MPV 11.1 8.8 - 12.5 fL LAB HEMATOLOGY METHOD 12/16/2023 6:[address] [facility] nRBC 0.0 <=0.0 per 100 WBCs LAB HEMATOLOGY METHOD 12/16/2023 6:[address] [facility] Differential Type Automated LAB HEMATOLOGY METHOD 12/16/2023 6:[address] [facility] Neutrophils % 76.0 % LAB HEMATOLOGY METHOD 12/16/2023 6:[address] [facility] Lymphocytes % 10.0 % LAB HEMATOLOGY METHOD 12/16/2023 6:[address] [facility] Monocytes % 12.0 % LAB HEMATOLOGY METHOD 12/16/2023 6:[address] [facility] Eosinophils % 2.0 % LAB HEMATOLOGY METHOD 12/16/2023 6:[address] [facility] Basophils % 0.0 % LAB HEMATOLOGY METHOD 12/16/2023 6:[address] [facility] Immature Granulocytes % 0.0 % LAB HEMATOLOGY METHOD 12/16/2023 6:[address] [facility] Neutrophils Absolute 4.81 1.60 - 6.10 10*3/uL LAB HEMATOLOGY METHOD 12/16/2023 6:[address] [facility] Lymphocytes Absolute 0.65(L) 1.20 - 3.90 10*3/uL LAB HEMATOLOGY METHOD 12/16/2023 6:[address] [facility] Monocytes Absolute 0.79 0.30 - 0.90 10*3/uL LAB HEMATOLOGY METHOD 12/16/2023 6:[address] [facility] Eosinophils Absolute 0.10 0.00 - 0.50 10*3/uL LAB HEMATOLOGY METHOD 12/16/2023 6:[address] [facility] Basophils Absolute 0.00 0.00 - 0.10 10*3/uL LAB HEMATOLOGY METHOD 12/16/2023 6:[address] [facility] Immature Granulocytes Absolute 0.02 0.00 - 0.06 10*3/uL LAB HEMATOLOGY METHOD 12/16/2023 6:[address] [facility] Blood Venous blood specimen / Unknown Venipuncture / Unknown 12/16/2023 6:42 PM EDT 12/16/2023 6:[address] [facility] - 12/16/2023 6:55 PM EDT Therapeutic decision making should be based on absolute values, rather than percentages. us Carmencita Slaughter MD LAB BLOOD ORDERABLES Final Res ult [facility] [address] [place] [address] * (ABNORMAL) CMP (12/16/2023 6:42 PM EDT) Glucose, Plasma 290(H) 74 - 99 mg/dL 12/16/2023 7:[address] [facility] BUN, Plasma 74(H) 7 - 21 mg/dL 12/16/2023 7:[address] [facility] Creatinine, Plasma 3.32(H) 0.70 - 1.20 mg/dL 12/16/2023 7:[address] [facility] BUN/Creatinine Ratio 22 12/16/2023 7:[address] [facility] Sodium, Plasma 135(L) 136 - 145 mmol/L 12/16/2023 7:[address] [facility] Potassium, Plasma 5.4(H) 3.6 - 4.9 mmol/L 12/16/2023 7:[address] [facility] Chloride, Plasma 104 97 - 107 mmol/L 12/16/2023 7:[address] [facility] CO2, Plasma 20(L) 22 - 29 mmol/L 12/16/2023 7:[address] [facility] Anion Gap 11 6 - 16 mmol/L 12/16/2023 7:[address] [facility] Total Calcium, Plasma 8.0(L) 8.9 - 10.2 mg/dL 12/16/2023 7:[address] [facility] Total Protein 6.0(L) 6.3 - 7.9 g/dL 12/16/2023 7:[address] [facility] Albumin, Plasma 3.0(L) 3.5 - 5.2 g/dL 12/16/2023 7:[address] [facility] AST, Plasma 39 10 - 50 U/L 12/16/2023 7:[address] [facility] Comment:Hemolyzed, result ma y be falsely increased. ALT, Plasma 9(L) 10 - 50 U/L 12/16/2023 7:[address] [facility] Alkaline Phosphatase, Plasma 172(H) 40 - 115 U/L 12/16/2023 7:[address] [facility] Total Bilirubin, Plasma 0.4 0.2 - 1.1 mg/dL 12/16/2023 7:[address] [facility] eGFRcr 20.9 mL/min/1.7 3m*2 12/16/2023 7:[address] [facility] Comment:Reported eGFRcr in m L/min/1.73m2 is based the CKD-EPI 2020 equation that does not use a race coefficient. Blood Venous blood specimen / Unknown Venipuncture / Unknown 12/16/2023 6:42 PM EDT 12/16/2023 6:52 PM EDT us Carmencita Slaughter MD LAB BLOOD ORDERABLES Final Res ult [facility] [address] [place] [address] * (ABNORMAL) POCT glucose meter (12/16/2023 6:00 PM EDT) POCT Glucose 271(H) 74 - 99 mg/dL 12/16/2023 6:03 PM EDT [facility] Comment:Accuracy of a glucos e result [...] for testing. Comment 12/16/2023 6:03 PM EDT [facility] Hog Dropper ID Cierra Jolley 12/16/2023 6:03 PM EDT [facility] Device ID [id number] 12/16/2023 6:03 PM EDT [facility] Specimen Type POC Capillary 12/16/2023 6:03 PM EDT [facility] Blood Capillary blood specimen / Unknown 12/16/2023 6:00 PM EDT 12/16/2023 6:03 PM EDT us Generic Provider Poct LAB POINT OF CARE TEST DOCKED DEVICE UNSOLICITED RESULTS Final Result Performing Organization Address City/State/[facility] Co de Phone Number HEALTHCARE LAB [address] [place] [id number] * [facility] ED POCUS PROCDOC (12/16/2023 5:49 PM EDT) [...] 0842 (Given - Provider: Caterina Bradley RN) 0840 (Given - Provider: Tamara [...] Routine 0508 (Not Given - Provider: Lai Billingsley RN - Reason: Patient/family refused) 0431 (Not [...] Routine 0843 (Given - Provider: Caterina Bradley RN)2031 (Given [...] Caterina Bradley, JAME) 1822 (Given - Provider: Taamra Horne, JAME) PRN Medication Order 12/23/2023 12/24/2023 [...] documented as of this encounter Care Teams Audit Machine Operator Relationship Specialty Start Date End Date Erik Hurley MD [address] [place] [address] PCP - General 06/18/23 01/29/24 documented as of this encounter
--- OUTSIDE RECORDS SUMMARY | 2024-02-24 15:31 | XMS_ITS | Encounter Summary ---
Author Organization Healthcare Address [address] [place] [address] Care Team Providers Care Lead Software Tester Name Role Phone Erik Hurley MD Primary Care Provider [phone] Encounter Details Date Type Department Care Team (Late st Contact Info) Description 03/26/2023 Telephone PAV A Inpatient [address] [place] [address] Laura Singleton CV TELE-PROGRESSIVE Social History Tobacco [...] slept in a prison (including now)? 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) to steady your nerves or to [...] Upcoming Encounters Date Type Department Care Team ([facility] Contact Info) Description 03/07/2024 1:40 PM EST Office Visit [facility] [place] [facility] [address], [address] [place] [address] Naeem Blunt MD [address] [place] [address] documented as of this encounter Visit Diagnoses Not on filedocumented in this encounter Additional Health Concerns Infection Onset Date Last Indicated Resolved Time MRSA Comment:Positive blood culture 03/03/2019 01/30/2024 Assessment Noted Time A Body Mass Index follow-up plan has been documented for the patient 03/25/2023 11:58 AM EST documented as of this encounter Care Teams Lead Software Tester Relationship Specialty Start Date End Date Erik Hurley MD [address] [place] [address] PCP - General 03/24/23 06/13/23 documented as of this encounter
--- OUTSIDE RECORDS SUMMARY | 2024-02-24 15:31 | XMS_ITS | Encounter Summary ---
Author Organization Healthcare Address [address] [place] [address] Care Team Providers Care Research Psychologist Name Role Phone Erik Hurley MD Primary Care Provider [phone] Encounter Details Date Type Department Care Team (Late st Contact Info) Description 12/16/2023 Orders Only External Location [address] [place] [address] Provider, External Social History Tobacco Use Types [...] slept in a fpc (including now)? 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, [address] [place] [address] Naeem Blunt MD [address] [place] [address] documented as of this encounter [...] documented as of this encounter Care Teams Research Psychologist Relationship Specialty Start Date End Date Erik Hurley MD [address] [place] [address] PCP - General 06/18/23 01/29/24 documented as of this encounter
--- OUTSIDE RECORDS SUMMARY | 2024-02-24 15:31 | XMS_ITS | Encounter Summary ---
Author Organization [facility] Address [address] [place] [address] Care Team Providers Care Geomatics Professor Name Role Phone Pcp, No Primary Care Provider Unavailabl e Reason for Referral * Consultation (Routine) - Authorized Specialty Diagnoses / Procedures Referred By Neno t Referred To Contact Nephrology Diagnoses Chronic kidney disease, unspecified CKD stage John Mattson MD [address] [place] [address] Phone: tel: fax: [facility] Nephrology, Bone & Mineral Metabolism [address], [address] [place] [address] Phone: tel: fax: Referral ID Status Reason Start Date Expiration Date Visits Requested Visits Authorized [id number] Authorized Specialty Services Required 06/17/2023 12/16/2024 1 1 Scheduling Instructions CKD * Consultation (Routine) - Authorized Specialty Diagnoses / Procedures Referred By Contac t Referred To Contact Primary Care Diagnoses Acute on chronic congestive heart failure, unspecified heart failure type (CMS/HCC) John Mattson MD [address] [place] [address] Phone: tel: fax: [address] [address] Phone: tel: Referral ID Status Reason Start Date Expiration Date Visits Requested Visits Authorized [id number] Authorized Specialty Services Required 06/17/2023 12/16/2024 1 1 * Home Health (Routine) - Authorized Specialty Diagnoses / Procedures Referred By Neno noel Referred To Contact Home Health Services Diagnoses Shortness of breath John Mattson MD [address] [place] [address] Phone: tel: fax: Referral ID Status Reason Start Date Expiration Date Visits Requested Visits Authorized [id number] Authorized Specialty Services Required 06/17/2023 12/16/2024 999 999 Reason for Visit * Reason Comments Shortness of Breath * Auth/Cert (Routine) Specialty Diagnoses / Procedures Referred By Neno noel Referred To Contact Diagnoses Shortness of breath John Mattson MD [address] [place] [address] Phone: tel: fax: [facility] [address] [place] [phone] Phone: tel: Referral ID Status Reason Start Date Expiration Date Visits Re quested Visits Authorized [id number] 1 1 Encounter Details Date Type Department Care Team (Latest Contact Info) Description 06/15/2023 1:04 PM EDT - 06/17/2023 3:15 PM EDT Hospital Encounter [facility] Inpatient [address] [place] [address] Nell Baxter DO [address] [place] [address] Regina Arrington MD [address] [place] [address] John Mattson MD [address] [place] [address] Shortness of breath (Primary Dx); Acute on chronic congestive heart failure, unspecified heart failure type (CMS/HCC); Chronic kidney disease, unspecified CKD stage Discharge Disposition: Home-Health Care [facility] Social History Tobacco Use Types Packs/Day Years [...] slept in a fdc (including now)? No 06/16/2023 CAGE ASSESSMENT Answer [...] drink first t erin in the morning (EYE-CANE BURNER) to steady your nerves or to get rid of a hangover? 0 02/05/2023 CAGE Questionnaire Score 0 023 Utilities Answer Date Recorded In the past 12 months has e [employer], gas, oil, or water [employer] threatened to shut off services in your [...] through Care Everywhere. * Dapagliflozin Oral Tablet (Hungarian) * Mometasone/Formoterol Metered Dose Inhaler (Hungarian) * Insulin Glargine Injectable Solution (Hungarian) documented in this encounter Medications at Time [...] swallow. 13 g 2 06/17/2023 4 Umeclidinium [place] (Incruse Ellipta) 62.5 MCG/ACT aerosol powder Inhale 1 Inhalation 1 (one) time each day. 7 each 1 02/12/2023 4 documented as of this encounter Miscellaneous Notes * Discharge Summary - Zia Gomez MD - 06/17/2023 2:19 PM EDT Hospitalization Admit Date/Time: 06/15/2023 1:04 PM Admitting Attending: John Mattson Discharge Date: 06/17/2023 Discharge Attending Physician: John Mattson MD PCP name and Address: Pcp, Ebony [address] [place] [address] Referring provider name and address: No referring provider defined for this encounter. Chief Concern, Brief History of Present Illness, and Hospital Course Robert Hurley is a 58 y.o. male w/HFrEF, suspected COPD, CAMACHO cirrhosis, DM2, CKD4, prior L AKA, and suspected difficulty accessing health care resources who initially presented to the [facility] on 06/14 with chief complaint of [...] he had limited ability to come to [place]. His PCP is in [facility], but that office is closed until 06/16, [facility] with office of [...] 62.5 MCG/ACT aerosol powder Generic drug: Umeclidinium [place] Inhale 1 Inhalation 1 (one) time each [...] Your Medications These medications were sent to [facility] [place], [place] - [email or web address] [facility] E A., [facility] [id number] dapagliflozin 10 MG tablet furosemide 40 MG [...] Follow-Up Future Appointments Date Time Provider Department [place] 06/25/2023 10:20 AM Marco Antonio Heath MD [facility] 10/01/2023 11:00 AM Harlan Ricketts MD [...] care resources who initially presented to the [facility] on 06/14 with chief complaint of [...] he had limited ability to come to [place]. His PCP is in [facility], but that office is closed until 06/16, [facility] who will follow-up with office of Erik Hurley MD for follow-up. * Progress Notes - Cameron Cabrera - 06/17/2023 1:10 PM EDT Case Management Discharge Note Robert Hurley 58 y.o. 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: Primary Caregiver: Self Assistance Available at Discharge: Current Outpatient/Agency/Support Group: OT,PT,HIDE WORKER, homecare agency Availability of Care Givers (#Hours): 1-4 hours [facility] [place] ( ) Housing Circumstances-Z Codes: Housing Circumstances [...] in last 30 days Medicare Documentation: Follow-up: [facility] Follow up today PT/OT fci Discharge Transportation: Transportation Anticipated: other (see comments) (medicaid transport) Transportation Home at Discharge: (Medicaid transport) Follow Up Transport: Transportation Needed to Follow up Appoinments: Family/Friend will Provide, Other(Comment) (medicaid transport) Additional Comments: Pt declined subacute rehab. HH PT/OT and SN to be provided by [facility] (his current HH agency) New referral sent Pt to be transported home by Medicaid transport from the Discharge Lounge. Cameron Cabrera * Progress Notes - Cathy Osullivan RN - 06/17/2023 9:02 AM EDT Case Management Adult Progress Note Robert Hurley 58 y.o. male CSN: [id number] Admission: 06/15/2023 1:04 PM Primary Problem: Shortness [...] L AKA who initially presented to the [facility] on 06/14 with chief complaint [...] [06/16/23 1246] O2 Delivery Method: Nasal cannula UT SUP: 8 cm H20 FiO2 (%): 28 % UT SUP: 8 cm H20 MAP (cm H2O): [...] L AKA who initially presented to the [facility] on 06/14 with chief complaint [...] 06/16/2023 10:57 AM Wound Image Wound Assessment Dry;Intact;Osprey;Red (blanchable) Margins Well-defined edges Josefina-Wound Assessment Dry [...] AM EDT Hospital visit made. Went over [facility] program. Patient verbalized understanding and agreed to program. Enrolled patient in [facility] Transitional Care program under Transitional Care Model. Transitions will assist with support and education at time of discharge. Hospital agile coach will follow thr oughout stay. Home agile coach will see patient within 48 hours of discharge and follow with home visits and telephone contact times 6 weeks. Provided [facility] folder with brochure, educational materials, and contact information to patient. * Progress Notes - Cameron Cabrera - 06/16/2023 9:30 AM EDT Case Management Adult Initial Progress Note Robert Hurley 58 y.o. male CSN: [id number] Admission: 06/15/2023 1:04 PM Primary Problem: Shortness of breath Towel Sewer reviewed chart and spoke with patient to complete this Initial Case Management Assessment. PCP: Pcp, No Emergency Contact: Extended Emergency Contact Information Primary Emergency Contact: XaviSaurabh Mobile Relation: Other Preferred language: Hungarian Intensive Care Medicine Specialist needed? No Insurance: Primary Visit Coverage Payer Plan Sponsor Code Group Number Group Name MEDICARE MEDICARE PART A ONLY Primary Visit Coverage Subscriber Subscriber ID Subscriber Name Subscriber SSN Subscriber Address [id number] ROBERT HURLEY JR [id number] [place] [address] Secondary Visit Coverage Payer Plan Sponsor Code Group Number Group Name MEDICAID-[facility] MEDICAID TRADITIONAL Secondary Visit Coverage Subscriber Subscriber ID Subscriber Name Subscriber SSN Subscriber Address [id number] ROBERT HURLEY [id number] [address] Patient information: Primary Caregiver: Self Support System: Immediate family Daily Living Activities: Functional Status: Independent Living Arrangements: Alone Type of Residence: Private residence, Single Level [address] [address] Current DME: Equipment Currently Used at Home: [...] own O2 concentrator at night purchased through [employer]. Was current with [facility] for Nursing and Pt. Will need new referral upon discharge. Living Will/Advance Directive/Power of Proposal Manager Writer /Guardian: None Additional Comments: Confirmed address: [facility] [place], [place]. Lives alone in a ground floor apartment. States prior to admit he was getting nursing and PT via [facility], uses a cane as needed, hasa LLE prosthetic, and uses 2L O2 at night via an O2 concentrator he bought off [employer]. States he has had a sleep study in [place] and CPAP in the past. No POA/LW/AD established. Has Me dicare Part A + Medicaid. States he is able to obtain meds through Medicaid. Meets [employer]. Uses [facility] pharmacy in [facility]. On Disability. States if son cannot transport [...] to admission Level of Mobility: Wheelchair/Scooter Mobility Dauphin: Independent transfers with device History of Falls: [...] Mobility Bed Mobility Exam: Scooting/Bridging Level of Dauphin: Contact guard (to scoot to EOB while seated) Physical/Nonphysical Assist: Verbal Cues, Nonverbal cues (demo/gestures) Bed Mobility Exam: Supine to Sit Level of Dauphin: Contact guard Physical/Nonphysical Assist: Verbal Cues, Nonverbal cues (demo/gestures), HOB elevated Transfers Transfer Exam: Sit to stand Level of Dauphin: Minimum assist (75% patient's effort) Physical/Nonphysical Assist: Verbal Cues, Nonverbal cues (demo/gestures) Assistive Device: Cane, quad Transfer Exam: Stand to Sit Level of Dauphin: Minimum assist (75% patient's effort) Physical/Nonphysical Assist: [...] to admission Level of Mobility: Wheelchair/Scooter Mobility Da[place]hin: Independent transfers with device History of Falls: [...] Mobility Bed Mobility Exam: Scooting/Bridging Level of Dauphin: Contact guard (to scoot to EOB while seated) Physical/Nonphysical Assist: Verbal Cues, Nonverbal cues (demo/gestures) Bed Mobility Exam: Supine to Sit Level of Dauphin: Contact guard Physical/Nonphysical Assist: Verbal Cues, Nonverbal cues (demo/gestures), HOB elevated Assistive Device: Bed rails Transfers Transfer Exam: Sit to stand Level of Dauphin: Minimum assist (75% patient's effort) Physical/Nonphysical Assist: Verbal Cues, Nonverbal cues (demo/gestures) Assistive Device: Cane, quad Transfer Exam: Stand to Sit Level of Dauphin: Minimum assist (75% patient's effort) Physical/Nonphysical Assist: [...] stability. Standardized Assessments Standardized Assessments Standardized Assessments: [facility] 6-Clicks Mobility Assessment [facility] 6-Clicks Mobility Assessment Difficulty patient has [...] 3-5 steps with a railing?: A lot [facility] 6-Clicks Mobility Assessment Total : 17 [...] L AKA who initially presented to the [facility] on 06/14 with chief complaint [...] of evaluation. He has never seen a horse doctor or had formal PFTs. Reports having no [...] OF STENT N/A Cath Stent Placement from [facility] CHOLECYSTECTOMY N/A Cholecystectomy from [facility] Family History Problem Relation Name Age of [...] 6 Units, Subcutaneous, 3 times daily Umeclidinium [place] (Incruse Ellipta) 62.5 MCG/ACT aerosol powder 1 [...] mL [06/15/232231] O2 Delivery Method: Nasal cannula UT SUP: 8 cm H20 FiO2 (%): 28 % UT SUP: 8 cm H20 MAP (cm H2O): [...] is no recent study available for direct wyfn-lu-omgi comparison. Echo, Adult Transthoracic Complete Result Date: [...] is no recent study available for direct czti-oy-tcsn comparison. Consider further evaluation with a transesophageal echocardiogram if clinically indicated. ECG/Telemetry: Encounter Date: 06/15/23 EKG now - STAT (adult) Result Value EKG DIAGNOSIS CLASS Abnormal Ventricular Rate 63 Atrial Rate 63 UT Interval 144 QRSD Interval 112 QT Interval 454 QTC Interval 464 P Pine 58 R Pine -22 T Wave Pine 146 Diagnosis Normal sinus rhythm Diagnosis Minimal [...] sodium chloride, 10 mL, Intravenous, q12h Tiotropium [place] Monohydrate, 2 puff, Inhalation, Daily PRN medications: acetaminophen, ipratropium-albuterol, [COMPLETED] Insert peripheral IV AND [COMPLETED] Saline lock IV AND sodium chloride AND sodium chloride ASSESSMENT/PLAN Robert Hurley is a 58 y.o. male who initially presented to the [facility] on 06/14 withchief complaint of acute dyspnea. 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 I discussed the case with the resident/fellow and agree with the findings and plan as documented. * ED Triage Notes - Raji Lakhani RN - 06/15/2023 1:01 PM EDT Pt arive via [employer] co SOA worsening since 10am this datte. [...] Description 03/07/2024 1:40 PM EST Office Visit [facility] Willard Epworth [address], [address] [place] [address] Naeem Blunt MD [address] [place] [address] Scheduled Orders Name Type Priority [...] Diagnoses Order Schedule Discharge Ambulatory referral to [facility] Outpatient Referral Routine Shortness of breath Expected: [...] POCT glucose meter (06/17/2023 1:18 PM EDT) [facility] POCT Glucose 119(H) 74 - 99 mg/dL [...] 06/17/2023 1:20 PM EDT [facility] Maintenance Repairman ID Holly Parsons 06/17/2023 1:20 PM EDT HEALTHCARE [facility] Device ID [id number] 06/17/2023 1:20 PM EDT [facility] Specimen Type POC Capillary 06/17/2023 1:20 PM EDT [facility] Blood Capillary blood specimen / Unknown 06/17/2023 1:18 PM EDT 06/17/2023 1:20 PM EDT us John Mattson MD LAB POINT OF CARE TE ST DOCKED DEVICE UNSOLICITED RESULTS Final Result [facility] [address] [place] [address] * (ABNORMAL) Multi Drug Resistance Test (06/17/2023 11:48 AM EDT) [facility] Culture Methicillin-Resis tant Staphylococcus aureus(AA) 06/18/2023 12:58 [...] ORDAnna ALLEN Final Result Performing Organization Address City/[facility]/ZIP Co de Phone Number [facility]ALTHCARE LAB [address] [place] [address] * (ABNORMAL) POCT glucose meter (06/17/2023 8:54 AM EDT) [facility] POCT Glucose 247(H) 74 - 99 mg/dL [...] Comment 06/17/2023 8:55 AM EDT [facility]ALTH[facility]ARE [facility] Maintenance Repairman ID Holly Parsons 06/17/2023 8:55 AM EDT HEALTHCARE LAB Device ID [id number] 06/17/2023 8:55 AM EDT [facility]ARE [facility] Specimen Type POC Capillary 06/17/2023 8:55 AM EDT [facility] Blood Capillary blood specimen / Unknown 06/17/2023 8:54 AM EDT 06/17/2023 8:55 AM EDT us John Mattson MD LAB POINT OF CARE TE ST DOCKED DEVICE UNSOLICITED RESULTS Final Result Performing Organization Address City/[facility]/ZIP Co de Phone Number [facility]ALTH[facility]ARE [facility] [address] [place] [address] * (ABNORMAL) CBC W/O Differential (06/17/2023 4:57 AM EDT) WBC Count 6.14 3.70 - 10.30 10*3/uL LAB HEMATOLOGY METHOD 06/17/2023 6:23 AM EDT [facility] RBC Count 3.70(L) 4.60 - 6.10 10*6/uL LAB HEMATOLOGY METHOD 06/17/2023 6:23 AM EDT [facility] HGB 10.1(L) 13.7 - 17.5 g/dL LAB HEMATOLOGY METHOD 06/17/2023 6:23 AM EDT [facility] HCT 31.4(L) 40.0 - 51.0 % LAB HEMATOLOGY METHOD 06/17/2023 6:23 AM EDT [facility] Platelet Count 204 155 - 369 10*3/uL LAB HEMATOLOGY METHOD 06/17/2023 6:23 AM EDT [facility] MCV 85 79 - 98 fL LAB HEMATOLOGY METHOD 06/17/2023 6:23 AM EDT [facility] MCH 27.3 26.0 - 32.0 pg LAB HEMATOLOGY METHOD 06/17/2023 6:23 AM EDT [facility] MCHC 32.2 30.7 - 35.5 g/dL LAB HEMATOLOGY METHOD 06/17/2023 6:23 AM EDT [facility] RDW 13.6 11.5 - 14.5 % LAB HEMATOLOGY METHOD 06/17/2023 6:23 AM EDT [facility] MPV 11.4 8.8 - 12.5 fL LAB HEMATOLOGY METHOD 06/17/2023 6:23 AM EDT [facility] nRBC 0.0 <=0.0 per 100 WBCs LAB HEMATOLOGY METHOD 06/17/2023 6:23 AM EDT [facility] Blood Venous blood specimen / Unknown Venipuncture / Unknown 06/17/2023 4:57 AM EDT 06/17/2023 5:17 AM EDT us John Mattson MD LAB BLOOD ORDERABLES Final Resu lt [facility] [address] [place] [address] * Phosphorus (06/17/2023 4:57 AM EDT) Phosphorus, Plasma 3.8 2.5 - 4.5 mg/dL 06/17/2023 5:42 AM EDT [facility] Blood Venous blood specimen / Unknown Venipuncture / Unknown 06/17/2023 4:57 AM EDT 06/17/2023 5:13 AM EDT John Mattson MD LAB BLOOD ORDERABLES Final Resu lt Performing Organization Address City/[facility]/ZIP Co de Phone Number [facility] [address] [place] [address] * Magnesium (06/17/2023 4:57 AM EDT) Magnesium, Plasma 2.3 1.9 - 2.4 mg/dL 06/17/2023 5:42 AM EDT [facility] Blood Venous blood specimen / Unknown Venipuncture / Unknown 06/17/2023 4:57 AM EDT 06/17/2023 5:13 AM EDT John Mattson MD LAB BLOOD ORDERABLES Final Resu lt Performing Organization Address City/[facility] Co de Phone Number [facility] [address] [phone] * (ABNORMAL) Basic metabolic panel (06/17/2023 4:57 AM EDT) Glucose, Plasma 158(H) 74 - 99 mg/dL 06/17/2023 5:42 AM EDT [facility] BUN, Plasma 46(H) 7 - 21 mg/dL 06/17/2023 5:42 AM EDT [facility] Creatinine, Plasma 2.98(H) 0.80 - 1.30 mg/dL 06/17/2023 5:42 AM EDT [facility] BUN/Creatinine Ratio 15 06/17/2023 5:42 AM EDT [facility] Sodium, Plasma 140 136 - 145 mmol/L 06/17/2023 5:42 AM EDT [facility] Potassium, Plasma 4.0 3.7 - 4.8 mmol/L 06/17/2023 5:42 AM EDT [facility] Chloride, Plasma 100 97 - 107 mmol/L 06/17/2023 5:42 AM EDT [facility] CO2, Plasma 27 22 - [...] BLOOD ORDERABLES Final Resu lt [facility] [address] [place] [address] * (ABNORMAL) POCT glucose meter (06/16/2023 8:22 PM EDT) POCT Glucose 182(H) 74 - 99 mg/dL 06/16/2023 8:25 PM EDT [facility] Comment:Accuracy of a glucos [...] Comment 06/16/2023 8:25 PM EDT [facility] Maintenance Repairman ID Juliette Ochoa 06/16/2023 8:25 PM EDT [facility] Device ID [id number] 06/16/2023 8:25 PM EDT [facility] Specimen Type POC Capillary 06/16/2023 8:25 PM EDT [facility] Blood Capillary blood specimen / Unknown 06/16/2023 8:22 PM EDT 06/16/2023 8:25 PM EDT us John Mattson MD LAB POINT OF CARE TE ST DOCKED DEVICE UNSOLICITED RESULTS Final Result [facility] [address] [place] [address] * (ABNORMAL) POCT glucose meter (06/16/2023 5:51 PM EDT) Pathologist [facility] POCT Glucose 179(H) 74 - 99 mg/dL [...] Comment 06/16/2023 5:57 PM EDT [facility] Maintenance Repairman ID Monserrat Wilcox 06/16/2023 5:57 PM EDT [facility] Device ID [id number] 06/16/2023 5:57 PM EDT [facility] Specimen Type POC Capillary 06/16/2023 5:57 PM EDT [facility] Blood Capillary blood specimen / Unknown 06/16/2023 5:51 PM EDT 06/16/2023 5:57 PM EDT us John Mattson MD LAB POINT OF CARE TE ST DOCKED DEVICE UNSOLICITED RESULTS Final Result [facility] [address] [place] [address] * (ABNORMAL) POCT glucose meter (06/16/2023 1:34 PM EDT) [facility] POCT Glucose 116(H) 74 - 99 mg/dL [...] 06/16/2023 1:37 PM EDT [facility] Maintenance Repairman ID Monserrat Wilcox 06/16/2023 1:37 PM EDT [facility] Device ID [id number] 06/16/2023 1:37 PM EDT [facility] Specimen Type POC Capillary 06/16/2023 1:37 PM EDT [facility] Blood Capillary blood specimen / Unknown 06/16/2023 1:34 PM EDT 06/16/2023 1:37 PM EDT John Mattson MD LAB POINT OF CARE TE ST DOCKED DEVICE UNSOLICITED RESULTS Final Result Performing Organization Address City/[facility] Co de Phone Number [facility] [address] [place] [address] * (ABNORMAL) POCT glucose meter (06/16/2023 9:01 AM EDT) [facility] POCT Glucose 209(H) 74 - 99 mg/dL [...] Comment 06/16/2023 9:03 AM EDT [facility] Maintenance Repairman ID Monserrat Wilcox 06/16/2023 9:03 AM EDT [facility] Device ID [id number] 06/16/2023 9:03 AM EDT [facility] Specimen Type POC Capillary 06/16/2023 9:03 AM EDT [facility] Blood Capillary blood specimen / Unknown 06/16/2023 9:01 AM EDT 06/16/2023 9:03 AM EDT us John Mattson MD LAB POINT OF CARE TE ST DOCKED DEVICE UNSOLICITED RESULTS Final Result Performing Organization Address City/[facility]/ZIP Co de Phone Number [facility] [address] [place] [address] * (ABNORMAL) Lipid panel (06/16/2023 3:58 AM [...] ORDERABLES Final Resu lt Performing Organization Address [facility] de Phone Number [facility]ALTH[facility]ARE [facility] [address] [place] [address] * (ABNORMAL) Hemoglobin A1c (06/16/2023 3:58 AM EDT) Hemoglobin A1c 6.6(H) <5.7 % 06/16/2023 9:18 AM EDT [facility] Blood Venous blood specimen / Unknown [...] Adults <6.0% Children and Adolescents <7.5% Source: ??[place] [employer]. Standards of medical care in diabetes,2017. Diabetes Care.2017:40 (suppl 1):S1-S135. HbA1c assay performed by an ion-exchange chromatography method that is certified traceable to the DCCT. John Mattson MD LAB BLOOD ORDERABLES Final Resu lt Performing Organization Address [facility] de Phone Number [facility] [address] [place] [address] * (ABNORMAL) CBC W/O Differential (06/16/2023 3:58 AM EDT) WBC Count 3.91 3.70 - 10.30 10*3/uL LAB HEMATOLOGY METHOD 06/16/2023 4:25 AM EDT [facility] RBC Count 4.15(L) 4.60 - 6.10 10*6/uL LAB HEMATOLOGY METHOD 06/16/2023 4:25 AM EDT [facility] HGB 11.0(L) 13.7 - 17.5 g/dL LAB HEMATOLOGY METHOD 06/16/2023 4:25 AM EDT [facility] HCT 34.7(L) 40.0 - 51.0 % LAB HEMATOLOGY METHOD 06/16/2023 4:25 AM EDT [facility] Platelet Count 208 155 - 369 10*3/uL LAB HEMATOLOGY METHOD 06/16/2023 4:25 AM EDT [facility] MCV 84 79 - 98 fL LAB HEMATOLOGY METHOD 06/16/2023 4:25 AM EDT [facility] MCH 26.5 26.0 - 32.0 pg LAB HEMATOLOGY METHOD 06/16/2023 4:25 AM EDT [facility] MCHC 31.7 30.7 - 35.5 g/dL LAB HEMATOLOGY METHOD 06/16/2023 4:25 AM EDT [facility] RDW 13.5 11.5 - 14.5 % LAB HEMATOLOGY METHOD 06/16/2023 4:25 AM EDT [facility] MPV 11.3 8.8 - 12.5 fL LAB HEMATOLOGY METHOD 06/16/2023 4:25 AM EDT [facility] nRBC 0.0 <=0.0 per 100 WBCs LAB HEMATOLOGY METHOD 06/16/2023 4:25 AM EDT [facility] Blood Venous blood specimen / Unknown Venipuncture / Unknown 06/16/2023 3:58 AM EDT 06/16/2023 4:08 AM EDT us John Mattson MD LAB BLOOD ORDERABLES Final Resu lt Performing Organization Address City/State/[facility] Co de Phone Number [facility] [address] [place] [phone] * (ABNORMAL) Phosphorus (06/16/2023 3:58 AM EDT) [facility] Phosphorus, Plasma 4.8(H) 2.5 - 4.5 mg/dL 06/16/2023 5:00 AM EDT [facility] Blood Venous blood specimen / Unknown Venipuncture / Unknown 06/16/2023 3:58 AM EDT 06/16/2023 4:10 AM EDT us John Mattson MD LAB BLOOD ORDERABLES Final Resu lt Performing Organization Address City/[facility]/ZIP Co de Phone Number [facility] [address] [place] [address] * Magnesium (06/16/2023 3:58 AM EDT) Pathologist [facility] Magnesium, Plasma 2.2 1.9 - 2.4 mg/dL 06/16/2023 5:00 AM EDT [facility] Blood Venous blood specimen / Unknown Venipuncture / Unknown 06/16/2023 3:58 AM EDT 06/16/2023 4:10 AM EDT John Mattson MD LAB BLOOD ORDERABLES Final Resu lt Performing Organization Address [facility] Co de Phone Number [facility] [address] [place] [address] * (ABNORMAL) Basic metabolic panel (06/16/2023 3:58 AM EDT) Pathologist [facility] Glucose, Plasma 344(H) 74 - 99 mg/dL 06/16/2023 5:00 AM EDT [facility] BUN, Plasma 36(H) 7 - 21 mg/dL 06/16/2023 5:00 AM EDT [facility] Creatinine, Plasma 2.52(H) 0.80 - 1.30 mg/dL 06/16/2023 5:00 AM EDT [facility] BUN/Creatinine Ratio 14 06/16/2023 5:00 AM EDT [facility] Sodium, Plasma 136 136 - 145 mmol/L 06/16/2023 5:00 AM EDT [facility] Potassium, Plasma 4.6 3.7 - 4.8 mmol/L 06/16/2023 5:00 AM EDT [facility] Chloride, Plasma 98 97 - 107 mmol/L 06/16/2023 5:00 AM EDT [facility] CO2, Plasma 21(L) 22 - 29 mmol/L 06/16/2023 5:00 AM EDT [facility] Anion Gap 17(H) 6 - 16 mmol/L 06/16/2023 5:00 AM EDT [facility] Total Calcium, Plasma 9.2 8.9 - 10.2 mg/dL 06/16/2023 5:00 AM EDT [facility] eGFRcr 29.1 mL/min/1.7 3m*2 06/16/2023 5:00 AM EDT [facility] Comment:Reported eGFRcr in m L/min/1.73m2 is based the CKD-EPI 2020 equation that does not use a race coefficient. Blood Venous blood specimen / Unknown Venipuncture / Unknown 06/16/2023 3:58 AM EDT 06/16/2023 4:10 AM EDT John Mattson MD LAB BLOOD ORDERABLES Final Resu lt [facility] [address] [place] [address] * Nasopharyngeal Respiratory Panel (06/16/2023 3:57 AM EDT) Nasopharyngeal Respiratory PCR Interpretation Not Detected for all analytes Not Detected for all analytes 06/16/2023 6:08 AM EDT [facility] Swab Nasopharyngeal structure / Unknown [...] Respiratory PCR Panel is performed using the [employer] instrument. This assay is for in vitro diagnostic use under the FDA Emergency Use Authorization (EUA) only. The [facility] Clinical Microbiology Laboratory is certified under the Clinical Laboratory Improvement Amendments of 1988 (CLIA-88) as qualified to perform high complexity clinical laboratory testing. John Mattson MD LAB MICROBIOLOGY - GENERAL OSEAS ALLEN Final Result Performing Organization Address [facility] Co de Phone Number [facility] [address] [place] [address] * (ABNORMAL) Troponin T, High Sensitivity, 2 Hour, Plasma (06/15/2023 5:22 PM EDT) Troponin T, High Sensitivity, 2 Hour 73(H) <19 ng/L 06/15/2023 6:00 PM EDT [facility] Troponin Delta 21(H) <10 ng/L 06/15/2023 6:00 PM EDT [facility] Troponin Delta Interpretation Significant 06/15/2023 6:00 PM EDT [facility] Comment:Significant change i n Troponin observed [...] Final Re sult Performing Organization Address [facility] Co de Phone Number [facility] [address] [place] [address] * XR Chest 1 View (06/15/2023 1:27 [...] ECG Atrial Rate 63 BPM MUSE ECG UT Interval 144 ms MUSE ECG QRSD Interval 112 ms MUSE ECG QT Interval 454 ms MUSE ECG QTC Interval 464 ms MUSE ECG P Pine 58 degrees MUSE ECG R Pine -22 degrees MUSE ECG T Wave Pine 146 degrees MUSE ECG Diagnosis Normal sinus [...] LAB HEMATOLOGY METHOD 06/15/2023 1:15 PM EDT [facility] pCO2, Venous 48 40 - 55 mmHg LAB HEMATOLOGY METHOD 06/15/2023 1:15 PM EDT [facility] pO2, Venous 22(L) 25 - 40 mmHg LAB HEMATOLOGY METHOD 06/15/2023 1:15 PM EDT [facility] SO2, Measured, Venous 32(L) 65 - 80 % LAB HEMATOLOGY METHOD 06/15/2023 1:15 PM EDT [facility] Base Excess, Venous 3.3(H) -2.0 - 3.0 mmol/L LAB HEMATOLOGY METHOD 06/15/2023 1:15 PM EDT [facility] Bicarbonate, Calculated, Venous 29(H) 22 - 26 mmol/L LAB HEMATOLOGY METHOD 06/15/2023 1:15 PM EDT [facility] Hematocrit, Whole Blood 37.9(L) 40.0 - 51.0 % LAB HEMATOLOGY METHOD 06/15/2023 1:15 PM EDT [facility] Sodium, Whole Blood 143 136 - 145 mmol/L LAB HEMATOLOGY METHOD 06/15/2023 1:15 PM EDT [facility] Potassium, Whole Blood 4.4 3.6 - 4.9 mmol/L LAB HEMATOLOGY METHOD 06/15/2023 1:15 PM EDT [facility] Chloride, Whole Blood 103 97 - 107 mmol/L LAB HEMATOLOGY METHOD 06/15/2023 1:15 PM EDT [facility] Glucose, Whole Blood 175(H) 74 - 99 mg/dL LAB HEMATOLOGY METHOD 06/15/2023 1:15 PM EDT [facility] Lactate, Venous, Whole Blood 1.7 0.5 - 2.2 mmol/L LAB HEMATOLOGY METHOD 06/15/2023 1:15 PM EDT [facility] Ionized Calcium, Whole Blood 4.8 4.6 - 5.1 mg/dL LAB HEMATOLOGY METHOD 06/15/2023 1:15 PM EDT [facility] Blood Venous blood specimen / Unknown Venipuncture / Unknown 06/15/2023 1:11 PM EDT 06/15/2023 1:12 PM EDT us Nell Juarez [employer] DO LAB BLOOD ORDERABLES Final Re sult Performing Organization Address [facility] Co de Phone Number [facility] [address] [place] [address] * (ABNORMAL) BNP (06/15/2023 1:09 PM EDT) N-Terminal, PROBNP, Plasma 58,765(H) 0 - 899 pg/mL 06/15/2023 1:45 PM EDT [facility] Blood Venous blood specimen / Unknown Venipuncture / Unknown 06/15/2023 1:09 PM EDT 06/15/2023 1:13 PM EDT us Nell Juarez [facility] DO LAB BLOOD ORDERABLES Final Re sult Performing Organization Address [facility] Co de Phone Number [facility] [address] [place] [address] * (ABNORMAL) Troponin now and 120 min (06/15/2023 1:09 PM EDT) Troponin T, High Sensitivity, 0 Hour 94(H) <19 ng/L 06/15/2023 1:37 PM EDT [facility] Blood Venous blood specimen / Unknown Venipuncture / Unknown 06/15/2023 1:09 PM EDT 06/15/2023 1:13 PM EDT us Nell Juarez [facility] DO LAB BLOOD ORDERABLES Final Re sult Performing Organization Address City/[facility] Co de Phone Number [facility] [address] [place] [address] * (ABNORMAL) Magnesium (06/15/2023 1:09 PM EDT) Magnesium, Plasma 1.8(L) 1.9 - 2.4 mg/dL 06/15/2023 1:37 PM EDT [facility] Blood Venous blood specimen / Unknown Venipuncture / Unknown 06/15/2023 1:09 PM EDT 06/15/2023 1:13 PM EDT us Nell Baxter DO LAB BLOOD ORDERABLES Final Re sult [facility] [address] [place] [address] * (ABNORMAL) CMP (06/15/2023 1:09 PM EDT) Glucose, Plasma 181(H) 74 - 99 mg/dL 06/15/2023 1:37 PM EDT [facility] BUN, Plasma 27(H) 7 - 21 mg/dL 06/15/2023 1:37 PM EDT [facility] Creatinine, Plasma 2.26(H) 0.80 - 1.30 mg/dL 06/15/2023 1:37 PM EDT [facility] BUN/Creatinine Ratio 12 06/15/2023 1:37 PM EDT [facility] Sodium, Plasma 140 136 - 145 mmol/L 06/15/2023 1:37 PM EDT [facility] Potassium, Plasma 4.6 3.7 - 4.8 mmol/L 06/15/2023 1:37 PM EDT [facility] Chloride, Plasma 101 97 - 107 mmol/L 06/15/2023 1:37 PM EDT [facility] CO2, Plasma 26 22 - 29 mmol/L 06/15/2023 1:37 PM EDT [facility] Anion Gap 13 6 - 16 mmol/L 06/15/2023 1:37 PM EDT [facility] Total Calcium, Plasma 9.5 8.9 - 10.2 mg/dL 06/15/2023 1:37 PM EDT [facility] Total Protein 7.0 6.3 - 7.9 g/dL 06/15/2023 1:37 PM EDT [facility] Albumin, Plasma 3.9 3.5 - 5.2 g/dL 06/15/2023 1:37 PM EDT [facility] AST, Plasma 28 10 - 50 U/L 06/15/2023 1:37 PM EDT [facility] ALT, Plasma 8(L) 10 - 50 U/L 06/15/2023 1:37 PM EDT [facility] Alkaline Phosphatase, Plasma 157(H) 40 - 115 U/L 06/15/2023 1:37 PM EDT [facility] Total Bilirubin, Plasma 1.1 0.2 - 1.1 mg/dL 06/15/2023 1:37 PM EDT [facility] eGFRcr 33.2 mL/min/1.7 3m*2 06/15/2023 1:37 PM EDT [facility] Comment:Reported eGFRcr in m L/min/1.73m2 is based the CKD-EPI 2020 equation that does not use a race coefficient. Blood Venous blood specimen / Unknown Venipuncture / Unknown 06/15/2023 1:09 PM EDT 06/15/2023 1:13 PM EDT us Nell Baxter DO LAB BLOOD ORDERABLES Final Re sult [facility] [address] [place] [address] * PT-INR (06/15/2023 1:09 PM EDT) Prothrombin Time 13.5 12.0 - 14.3 sec 06/15/2023 1:26 PM EDT [facility] INR 1.1 0.9 - 1.1 06/15/2023 1:26 PM EDT [facility] Blood Venous blood specimen / [...] INR 2.5 to 3.5 Prevention of recurrent [place] ? INR 2.5 to 3.5 us Nell L Vee DO LAB BLOOD ORDERABLES Final Re sult [facility] [address] [place] [address] * (ABNORMAL) CBC w/diff (06/15/2023 1:09 PM EDT) WBC Count 5.31 3.70 - 10.30 10*3/uL LAB HEMATOLOGY METHOD 06/15/2023 1:15 PM EDT [facility] RBC Count 4.46(L) 4.60 - 6.10 10*6/uL LAB HEMATOLOGY METHOD 06/15/2023 1:15 PM EDT [facility] HGB 11.9(L) 13.7 - 17.5 g/dL LAB HEMATOLOGY METHOD 06/15/2023 1:15 PM EDT [facility] HCT 37.3(L) 40.0 - 51.0 % LAB HEMATOLOGY METHOD 06/15/2023 1:15 PM EDT [facility] Platelet Count 250 155 - 369 10*3/uL LAB HEMATOLOGY METHOD 06/15/2023 1:15 PM EDT [facility] MCV 84 79 - 98 fL LAB HEMATOLOGY METHOD 06/15/2023 1:15 PM EDT [facility] MCH 26.7 26.0 - 32.0 pg LAB HEMATOLOGY METHOD 06/15/2023 1:15 PM EDT [facility] MCHC 31.9 30.7 - 35.5 g/dL LAB HEMATOLOGY METHOD 06/15/2023 1:15 PM EDT [facility] RDW 13.5 11.5 - 14.5 % LAB HEMATOLOGY METHOD 06/15/2023 1:15 PM EDT [facility] MPV 10.5 8.8 - 12.5 fL LAB HEMATOLOGY METHOD 06/15/2023 1:15 PM EDT [facility] nRBC 0.0 <=0.0 per 100 WBCs LAB HEMATOLOGY METHOD 06/15/2023 1:15 PM EDT [facility] Differential Type Automated LAB HEMATOLOGY METHOD 06/15/2023 1:15 PM EDT [facility] Neutrophils % 62.0 % LAB HEMATOLOGY METHOD 06/15/2023 1:15 PM EDT [facility] Lymphocytes % 29.0 % LAB HEMATOLOGY METHOD 06/15/2023 1:15 PM EDT [facility] Monocytes % 6.0 % LAB HEMATOLOGY METHOD 06/15/2023 1:15 PM EDT [facility] Eosinophils % 2.0 % LAB HEMATOLOGY METHOD 06/15/2023 1:15 PM EDT [facility] Basophils % 1.0 % LAB HEMATOLOGY METHOD 06/15/2023 1:15 PM EDT [facility] Immature Granulocytes % 0.0 % LAB HEMATOLOGY METHOD 06/15/2023 1:15 PM EDT [facility] Neutrophils Absolute 3.31 1.60 - 6.10 10*3/uL LAB HEMATOLOGY METHOD 06/15/2023 1:15 PM EDT [facility] Lymphocytes Absolute 1.55 1.20 - 3.90 10*3/uL LAB HEMATOLOGY METHOD 06/15/2023 1:15 PM EDT [facility] Monocytes Absolute 0.31 0.30 - 0.90 10*3/uL LAB HEMATOLOGY METHOD 06/15/2023 1:15 PM EDT [facility] Eosinophils Absolute 0.08 0.00 - 0.50 10*3/uL LAB HEMATOLOGY METHOD 06/15/2023 1:15 PM EDT [facility] Basophils Absolute 0.05 0.00 - 0.10 10*3/uL LAB HEMATOLOGY METHOD 06/15/2023 1:15 PM EDT [facility] Immature Granulocytes Absolute 0.01 0.00 - 0.06 10*3/uL LAB HEMATOLOGY METHOD 06/15/2023 1:15 PM EDT [facility] Blood Venous blood specimen / Unknown Venipuncture / Unknown 06/15/2023 1:09 PM EDT 06/15/2023 1:13 PM EDT Narrative [facility] - 06/15/2023 1:15 PM EDT Therapeutic decision making should be based on absolute values, rather than percentages. us Nell Baxter DO LAB BLOOD ORDERABLES Final Re sult [facility] [address] [place] [address] documented in this encounter Visit Diagnoses Diagnosis [...] Wed06/17/23 at 1715, Routine, line care Tiotropium [place] Monohydrate (Spiriva Respimat) 2.5 MCG/ACT inhaler 2 [...] (Given - Provider: Lia Lemus RN) Tiotropium [place] Monohydrate (Spiriva Respimat) 2.5 MCG/ACT inhaler 2 [...] documented as of this encounter Care Teams Geomatics Professor Relationship Specialty Start [place] [address] PCP - General Family Medicine 06/14/23 06/17/23 documented as of this encounter
--- OUTSIDE RECORDS SUMMARY | 2024-02-24 15:32 | XMS_ITS | Encounter Summary ---
Author Organization [facility] Address [address] [place] [address] Care Team Providers Care Merchant Mariner Name Role Phone Terence Ring Primary Care Provider [phone] Judy Minaya LPN Unavailable Unavailable Encounter Details Date Type Department Care Team (Late st Contact Info) Description 03/18/2023 Patient Outreach POPULATION [address] [phone] Judy Minaya LPN [employer] [place] [address] Social History Tobacco Use Types Packs/Day Years [...] slept in a retirement (including now)? No 02/05/2023 CAGE ASSESSMENT Answer [...] drink first t erin in the morning (EYE-COMPUTER ANIMATOR) to steady your nerves or to get [...] Upcoming Encounters Date Type Department Care Team ([facility] st Contact Info) Description 03/07/2024 1:40 PM EST Office Visit [facility] [place] [address], [address] [place] [address] Naeem Blunt MD [address] [place] [phone] documented as of this encounter Visit Diagnoses Not on filedocumented in this encounter Additional Health Concerns Infection Onset Date Last Indicated Resolved Time MRSA Comment:Positive blood culture 03/03/2019 01/30/2024 Assessment Noted Time A Body Mass Index follow-up plan has been documented for the patient 02/12/2023 12:32 PM EST documented as of this encounter Care Teams Merchant Mariner Relationship Specialty Start Date End Date Terence Ring [address] [place] [id number] PCP - General 08/09/20 03/23/23 Judy Minaya LPN [employer] [place] [address] TCM Nurse 02/16/23 03/18/23 documented as of this encounter
--- OUTSIDE RECORDS SUMMARY | 2024-02-24 15:32 | XMS_ITS | Encounter Summary ---
Author Organization [facility] Address [address] [place] [address] Care Team Providers Care Straightedge Worker Name Role Phone JhonathanTerence Marci Primary Care Provider [phone] Judy Minaya LPN Unavailable Unavailable Reason for Visit * Reason Comments TCM Call Encounter Details Date Type Department Care Team (Late st Contact Info) Description 02/16/2023 Patient Outreach POPULATION [facility] [address] [place] [address] Judy Minaya LPN [employer] [place] [address] TCM Call Social History Tobacco Use Types [...] [place] [facility] (including now)? No 02/05/2023 CAGE ASSESSMENT Answer [...] drink first t erin in the morning (EYE-DIETETIC INTERN) to steady your nerves or to get rid of a hangover? 0 02/05/2023 CAGE Questionnaire Score 0 023 Utilities Answer Date Recorded In the past 12 months has th e [employer], gas, oil, or water company threatened to shut off services in your home? No 02/05/2023 Sex and Gender Information Value Date Recorded Sex Assigned at Not on file Legal Sex Male 8:15 PM EDT Gender Identity Not on file Sexual Orientation Not on file documented as of this encounter Miscellaneous Notes * Progress Notes - Judy iMnaya LPN - 02/16/2023 2:34 PM EST Admission [...] Description 03/07/2024 1:40 PM EST Office Visit [facility] [place] [address], [address] [place] [id number] Naeem Blunt MD [address] [place] [address] documented as of this encounter Visit Diagnoses Not on filedocumented in this encounter Additional Health Concerns Infection Onset Date Last Indicated Resolved Time MRSA Comment:Positive blood culture 03/03/2019 01/30/2024 Assessment Noted Time A Body Mass Index follow-up plan has been documented for the patient 02/12/2023 12:32 PM EST documented as of this encounter Care Teams Straightedge Worker Relationship Specialty Start Date End Date Terence Ring [facility] [employer] [address] PCP - General 08/09/20 03/23/23 Judy Minaya LPN [employer] [place] [address] TCM Nurse 02/16/23 03/18/23 documented as of this encounter
--- OUTSIDE RECORDS SUMMARY | 2024-02-24 15:32 | XMS_ITS | Encounter Summary ---
Author Organization [facility] Address [address] [place] [address] Care Team Providers Care Grocery Buyer Name Role Phone Terence Ring Primary Care Provider [phone] Erik Hurley MD Primary Care Provider [phone] Reason for Referral * Other Medical (Routine) - Pending Review Specialty Diagnoses / Procedures Referred By Neno noel Referred To Contact Diagnoses ALEXANDRE (obstructive sleep apnea) Procedures Overnight Polysomnography (Sleep Study) - Outside Facility Jerel Robertson DO [address] [place] [address] Phone: tel: fax: Referral ID Status Reason Start Date Expiration Date V isits Requested Visits Authorized [id number] Pending Review 03/25/2023 09/23/2024 1 1 * Home Health (Routine) - Authorized Specialty Diagnoses / Procedures Referred By Neno noel Referred To Contact Home Health Services Diagnoses Acute on chronic congestive heart failure, unspecified heart failure type (CMS/HCC) Jerel Robertson DO [address] [place] [address] Phone: tel: fax: Referral ID Status Reason Start Date Expiration Date Visits Requested Visits Authorized [id number] Authorized Specialty Services Required 09/23/2024 999 999 Reason for Visit * Reason Comments Shortness of Breath * Auth/Cert (Routine) Specialty Diagnoses / Procedures Referred By Contac t Referred To Contact Diagnoses HFrEF (heart failure with reduced ejection fraction) ([facility]) Pulmonary Edema on Bipap 40% Jerel Robertson DO [address] [place] [address] Phone: tel: fax: [facility] Emergency Department [address] [place] [id number] Phone: tel: Referral ID Status Reason Start Date Expiration Date Visits Re quested Visits Authorized [id number] 1 1 Encounter Details Date Type Department Care Team (Latest Contact Info) Description 03/23/2023 9:10 AM EST - 03/25/2023 2:43 PM EST Hospital Encounter [facility] Inpatient [address] [place] [phone] Amrit Marlow MD [address] [place] [address] Jerel Robertson DO [address] [place] [address] Acute on chronic congestive heart [...] slept in a [facility] (including now)? No 03/24/2023 CAGE ASSESSMENT Answer [...] drink first t erin in the morning (EYE-GEAR MILLING MACHINE SET UP OPERATOR) to steady your nerves or to get rid of a hangover? 0 02/05/2023 CAGE Questionnaire Score 0 023 Utilities Answer Date Recorded In the past 12 months has th e Avancen MOD, gas, oil, or water Show de Ingressos threatened to shut off services in your [...] Care Everywhere. * Aspirin Chewable Tablet ([place]) ([place]imbabwean) * Atorvastatin tablets (Zimbabwean) * Carvedilol tablets (Zimbabwean) * Clopidogrel tablets (Zimbabwean) * Dapagliflozin tablets (Zimbabwean) * Entecavir tablets (Zimbabwean) * Furosemide tablets (Zimbabwean) * Gabapentin capsules or tablets (Zimbabwean) * Hydralazine tablets (Zimbabwean) * Umeclidinium inhalation powder (Zimbabwean) * Isosorbide Dinitrate Oral Tablet (Zimbabwean) * Insulin Detemir injection ([place]imbabwean) * Nitroglycerin Sublingual Tablet ([place]) ([place]an) * Insulin Aspart Pen Injector 100 UNT/mL (3 mL) (Zimbabwean) documented in this encounter Medications at Time [...] day. 90 tablet 11 02/12/2023 4 Umeclidinium Burdett (Incruse Ellipta) 62.5 MCG/ACT aerosol powder Inhale [...] the Cardiology clinic during the day at [phone]. If you need to speak to a physician and the clinic is closed please call the paging food production machine operator at [phone] and ask to speak to the Freelance Translator registration scheduling specialist. * Discharge Summary - Josh Mcmanus MD - 03/25/2023 11:23 AM EST Hospitalization Admit Date/Time: 03/23/2023 9:10 AM Admitting Attending: Jerel Robertson Discharge Date: 03/25/23 Discharge Attending Physician: Jerel Robertson DO PCP name and Address: Erik Hurley MD [address] [facility] [address] Referring provider name and address: John Sue MD [address] [place] [address] Chief Concern, Brief History of Present Illness, and Hospital Course Robert Hurley is a 57 y.o. male with significant PMH of CAD s/p PCI, HFmrEF, COPD, DM2, CAMACHO cirrhosis, and left AKA who presented to [facility] on 03/23/2023 with shortness of breath. Pt [...] pt was switched to 20 daily from [facility] on 03/15/23. - Etiology secondary to Lasix [...] 40 PO daily. - To follow-up with [facility] in [place], [place]. Appointment made on Wednesday at 2:00. [...] 62.5 MCG/ACT aerosol powder Generic drug: Umeclidinium Burdett Inhale 1 Inhalation 1 (one) time each [...] HFrEF (heart failure with reduced ejection fraction) ([facility]) Post Discharge Instructions Follow-up with Cardiology on [...] of HFrEF (heart failure with reducedejection fraction) ([facility]). Problem List Active Hospital Problems Diagnosis Date Noted Acute on chronic congestive heart failure ([facility]) 03/25/2023 HFrEF (heart failure with reduced ejection fraction) ([facility]) 03/23/2023 Past 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 Patient has a [...] Level of Mobility: Ambulatory- household only Mobility [place]: Independent gait with device History of Falls: [...] Mobility Exam: Supine to Sit Level of [place]: Modified [place] Physical/Nonphysical Assist: HOB elevated Transfers Transfer Exam: Sit to stand Level of [place]: Stand-by assist Physical/Nonphysical Assist: Supervision Transfer Exam: Stand to Sit Level of [place]: Stand-by assist Physical/Nonphysical Assist: Supervision Balance Postural [...] be independent with UB dressing with a pin puller shirt. Standardized Assessments [facility] 6-Click Daily Activities Help from Other: Don/Doff Regular Lower Body Clothings: Little Help From Other: Bathing: Little Help From Other: Toileting: None Help From Other: Don/Doff Upper Body Clothings: None Help From Other: Grooming: None Help From Other: Eating Meals: None [facility] 6 Click - Daily Activities Score: 22 [...] of HFrEF (heart failure with reducedejection fraction) ([facility]). Problem List Active Hospital Problems Diagnosis Date Noted Acute on chronic congestive heart failure ([facility]) 03/25/2023 HFrEF (heart failure with reduced ejection fraction) ([facility]) 03/23/2023 Procedures Past 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 Patient has [...] Level of Mobility: Ambulatory- household only Mobility [place]: Independent gait with device History of Falls: [...] Mobility Exam: Supine to Sit Level of [place]: Modified [place] Physical/Nonphysical Assist: HOB elevated Transfers Transfer Exam: Sit to stand Level of [place]: Stand-by assist Physical/Nonphysical Assist: Supervision Transfer Exam: Stand to Sit Level of [place]: Stand-by assist Physical/Nonphysical Assist: Supervision Ambulation Device: [...] home. Standardized Assessments Standardized Assessments Standardized Assessments: [facility] 6-Clicks Mobility Assessment [facility] 6-Clicks Mobility Assessment Difficulty patient has turning [...] 3-5 steps with a railing?: A little [facility] 6-Clicks Mobility Assessment Total : 22 Standardized Assessments Standardized Assessments Standardized Assessments: [facility] 6-Clicks Mobility Assessment [facility] 6-Clicks Mobility Assessment Difficulty patient has turning [...] 3-5 steps with a railing?: A little [facility] 6-Clicks Mobility Assessment Total : 22 Assessment [...] Great discussion was made to follow-up with consulting software engineer in [place]- as [place] is too far for pt to go [...] cirrhosis, and left AKA who presented to [facility] on 03/23/2023 with shortness of breath. # Acute on Chronic HFrEF Exacerbation # Acute on Chronic Respiratory Failure - EDD noted on 02/10/23 displayed EF of 40-45% at last admission. Pt was since discharged and was placed on 40 Lasix daily. However, pt was switched to 20 daily from [facility] on 03/15/23. - Etiology secondary to Lasix [...] Dispo: Diurese with possible D/C tomorrow. Josh Mcmauns MD Internal Medicine, PGY-1 Cosigned by Jerel Robertson DO at 03/24/2023 4:30 PM EST [...] Note Robert Hurley 57 y.o. male CSN: [id number] Admission: 03/23/2023 9:10 AM Primary Problem: HFrEF (heart failure with reduced ejection fraction) ([facility]) Coat Fitter reviewed chart and spoke with patient at bedside to complete this Initial Case Management Assessment. PCP: Erik Hurley MD in [facility] Emergency Contact: Extended Emergency Contact Information Primary Emergency Contact: Saurabh Hurley Mobile Relation: Other Preferred language: Zimbabwean Orientor needed? No Insurance: Primary Visit Coverage Payer Plan Sponsor Code Group Number Group Name MEDICARE MEDICARE PART A ONLY Primary Visit Coverage Subscriber Subscriber ID Subscriber Name Subscriber SSN Subscriber Address [id number] ROBERT HURLEY JR R [id number] [place] [address] Secondary Visit Coverage Payer Plan Sponsor Code Group Number Group Name [facility] TRADITIONAL Secondary Visit Coverage Subscriber Subscriber ID Subscriber Name Subscriber SSN Subscriber Address [id number] WANDERROBERT R [id number] [place] [address] Patient information: Primary Caregiver: Self Accompanied by/Relationship: N/A Support System: Immediate family Daily Living Activities: Functional Status: Independent Living Arrangements: Alone Type of Residence: Private residence, Single Level [address] [place] [address] Current DME: Equipment Currently Used at Home: cane, straight, oxygen Current DME Provider: Uses his own O2 concentrator at night purchased through [employer] Income Information: Income Source: Disabled Current Resources [...] own O2 concentrator at night purchased through [employer] Living Will/Advance Directive/Power of Partition Assembler /Guardian: Have you reviewed your Advance Directive [...] bedside for initial eval. Confirmed address: [address] [place], [place]. Lives alone in a ground floor apartment. States prior to admit he was getting home health nursing via [facility], uses a cane as needed, has a LLE prosthetic, and uses 2L O2 at night via an O2 concentrator he bought off [employer] - said he has not been set up properly with an O2 supplier and says he had a CPAP in the past. PCP is Dr Erik Hurley in [place]. No POA/LW/AD established. Has Medicare Part A + [place] Medicaid. Meets 300% [employer]. Uses [facility] in [facility]. States he is on disability. Went to [facility] about 3 years ago after getting his LLE prosthetic. Son to transport and assist as needed at discharge. No current SW/CM needs identified, will continue to follow and assist. ANDREWS Rojo * H&P - Alfred Sandoval MD - 03/23/2023 3:43 PM EST Images from the original note were not included. INPATIENT CARDIOLOGY ([facility]) HISTORY & PHYSICAL History Of Present Illness Robert Hurley is a 57 y.o. male with significant PMH of CAD s/p PCI, HFmrEF, COPD, DM2, CAMACHO cirrhosis, and left AKA who presented to [facility] on 03/23/2023 with shortness of breath. Patient was just recently discharged from [facility] in January where he was treated for HFrEF exacerbation. More recently he presented to [facility] [place] [address] for shortness of breath and was [...] OF STENT N/A Cath Stent Placement from [facility] CHOLECYSTECTOMY N/A Cholecystectomy from [facility] Family History family history includes Conversions - [...] 5 Units, Subcutaneous, 3 times daily Umeclidinium Burdett (Incruse Ellipta) 62.5 MCG/ACT aerosol powder 1 [...] is no recent study available for direct rffx-fe-kofe comparison. ECG/Telemetry: NSR with LVH and repolarization abnormality ASSESSMENT/PLAN Robert Hurley is a 57 y.o. male with significant PMH of CAD s/p PCI, HFmrEF, COPD, DM2, CAMACHO cirrhosis, and left AKA who presented to [facility] on 03/23/2023 with shortness of breath. #Acute [...] SQH Code Status: Full Dispo: Admit to [facility] Alfred Sandoval MD Internal Medicine (PGY-1) Cosigned [...] OF STENT N/A Cath Stent Placement from [facility] CHOLECYSTECTOMY N/A Cholecystectomy from [facility] Family History Problem Relation Name Age of [...] Symptoms and physical consistentwith CHF exacerbation. BNP 79371. Troponin elevated with significant delta. He does [...] Description 03/07/2024 1:40 PM EST Office Visit [facility] [place] [address], [address] [place] [address] Naeem Blunt MD [address] [place] [address] Scheduled Orders Name Type Priority Associated Diagnoses Orde r Schedule Overnight Polysomnography (Sleep Study) - Outside Facility Procedures Routine ALEXANDRE (obstructive sleep apnea) 1 Occurrences starting 03/25/2023 until 03/25/2024 Scheduled Referrals Name Type Priority Associated Diagnoses Orde r Schedule Discharge Ambulatory referral to NON [facility] Health Outpatient Referral Routine Acute on chronic [...] - 99 mg/dL 03/25/2023 12:36 PM EST [facility] Comment:Accuracy of a glucos e result [...] for testing. Comment 03/25/2023 12:36 PM EST [facility] Milking System Installer ID Holly Parsons 03/25/2023 12:36 PM EST [facility] Device ID [id number] 03/25/2023 12:36 PM EST [facility] Specimen Type POC Capillary 03/25/2023 12:36 PM EST [facility] Blood Capillary blood specimen / Unknown 03/25/2023 12:35 PM EST 03/25/2023 12:36 PM EST Jerel Robertson DO LAB POINT OF CARE TE ST DOCKED DEVICE UNSOLICITED RESULTS Final Result Performing Organization Address City/[facility] Co de Phone Number [facility] [address] [place] [address] * (ABNORMAL) POCT glucose meter (03/25/2023 9:02 [...] Comment 03/25/2023 9:04 AM EST [facility] Milking System Installer ID Holly Parsons 03/25/2023 9:04 AM EST [facility] Device ID [id number] 03/25/2023 9:04 AM EST [facility] Specimen Type POC Capillary 03/25/2023 9:04 AM EST [facility] Blood Capillary blood specimen / Unknown 03/25/2023 9:02 AM EST 03/25/2023 9:04 AM EST us Jerel Robertson DO LAB POINT OF CARE TE ST DOCKED DEVICE UNSOLICITED RESULTS Final Result Performing Organization Address City/[facility] Co de Phone Number [facility] [address] [place] [address] * Magnesium (03/25/2023 5:02 AM EST) Magnesium, Plasma 2.3 1.9 - 2.4 mg/dL 03/25/2023 5:47 AM EST [facility] Blood Venous blood specimen / Unknown Venipuncture / Unknown 03/25/2023 5:02 AM EST 03/25/2023 5:15 AM EST us Jerel Robertson DO LAB BLOOD ORDERABLES Final R esult [facility] [address] [place] [address] * (ABNORMAL) CBC (03/25/2023 5:02 AM EST) WBC Count 5.48 3.70 - 10.30 10*3/uL LAB HEMATOLOGY METHOD 03/25/2023 5:[address] [facility] RBC Count 3.30(L) 4.60 - 6.10 10*6/uL LAB HEMATOLOGY METHOD 03/25/2023 5:[address] [facility] HGB 9.2(L) 13.7 - 17.5 g/dL LAB HEMATOLOGY METHOD 03/25/2023 5:[address] [facility] HCT 29.2(L) 40.0 - 51.0 % LAB HEMATOLOGY METHOD 03/25/2023 5:[address] [facility] Platelet Count 179 155 - 369 10*3/uL LAB HEMATOLOGY METHOD 03/25/2023 5:[address] [facility] MCV 89 79 - 98 fL LAB HEMATOLOGY METHOD 03/25/2023 5:[address] [facility] MCH 27.9 26.0 - 32.0 pg LAB HEMATOLOGY METHOD 03/25/2023 5:[address] [facility] MCHC 31.5 30.7 - 35.5 g/dL LAB HEMATOLOGY METHOD 03/25/2023 5:[address] [facility] RDW 13.6 11.5 - 14.5 % LAB HEMATOLOGY METHOD 03/25/2023 5:[address] [facility] MPV 11.7 8.8 - 12.5 fL LAB HEMATOLOGY METHOD 03/25/2023 5:[address] [facility] nRBC 0.0 <=0.0 per 100 WBCs LAB HEMATOLOGY METHOD 03/25/2023 5:[address] [facility] Blood Venous blood specimen / Unknown Venipuncture / Unknown 03/25/2023 5:02 AM EST 03/25/2023 5:45 AM EST us Jerel Robertson DO LAB BLOOD ORDERABLES Final R esult [facility] [address] [place] [address] * (ABNORMAL) Basic metabolic panel (03/25/2023 5:02 AM EST) Glucose, Plasma 194(H) 74 - 99 mg/dL 03/25/2023 5:[address] [facility] BUN, Plasma 77(H) 7 - 21 mg/dL 03/25/2023 5:[address] [facility] Creatinine, Plasma 2.98(H) 0.80 - 1.30 mg/dL 03/25/2023 5:[address] [facility] BUN/Creatinine Ratio 26 03/25/2023 5:[address] [facility] Sodium, Plasma 136 136 - 145 mmol/L 03/25/2023 5:[address] [facility] Potassium, Plasma 4.3 3.7 - 4.8 mmol/L 03/25/2023 5:[address] [facility] Chloride, Plasma 99 97 - 107 mmol/L 03/25/2023 5:[address] [facility] CO2, Plasma 26 22 - 29 mmol/L 03/25/2023 5:[address] [facility] Anion Gap 11 6 - 16 mmol/L 03/25/2023 5:[address] [facility] Total Calcium, Plasma 8.7(L) 8.9 - 10.2 mg/dL 03/25/2023 5:[address] [facility] eGFRcr 24.0 mL/min/1.7 3m*2 03/25/2023 5:[address] [facility] Comment:Reported eGFRcr in m L/min/1.73m2 is based the CKD-EPI 2020 equation that does not use a race coefficient. Blood Venous blood specimen / Unknown Venipuncture / Unknown 03/25/2023 5:02 AM EST 03/25/2023 5:15 AM EST us Jerel Robertson DO LAB BLOOD ORDERABLES Final R esult [facility] [address] [place] [address] * (ABNORMAL) POCT glucose meter (03/24/2023 8:21 PM EST) [facility] POCT Glucose 248(H) 74 - 99 mg/dL [...] 03/24/2023 8:23 PM EST [facility] Milking System Installer ID Macrina Landa 8:23 PM EST [facility] Device ID [id number] 03/24/2023 8:23 PM EST [facility] Specimen Type POC Capillary 03/24/2023 8:23 PM EST [facility] Blood Capillary blood specimen / Unknown 03/24/2023 8:21 PM EST 03/24/2023 8:23 PM EST us Jerel Robertson DO LAB POINT OF CARE TE ST DOCKED DEVICE UNSOLICITED RESULTS Final Result Performing Organization Address City/State/[facility] Co de Phone Number [facility] [address] [place] [address] * (ABNORMAL) POCT glucose meter (03/24/2023 5:17 PM EST) [facility] POCT Glucose 159(H) 74 - 99 mg/dL [...] 03/24/2023 5:18 PM EST [facility] Milking System Installer ID Holly Parsons 03/24/2023 5:18 PM EST [facility] Device ID [id number] 03/24/2023 5:18 PM EST [facility] Specimen Type POC Capillary 03/24/2023 5:18 PM EST [facility] Blood Capillary blood specimen / Unknown 03/24/2023 5:17 PM EST 03/24/2023 5:18 PM EST Jerel Robertson DO LAB POINT OF CARE TE ST DOCKED DEVICE UNSOLICITED RESULTS Final Result Performing Organization Address [facility] de Phone Number [facility] [address] [place] [address] * (ABNORMAL) POCT glucose meter (03/24/2023 12:04 [...] 03/24/2023 12:05 PM EST [facility] Milking System Installer ID Holly Parsons 03/24/2023 12:05 PM EST [facility] Device ID [id number] 03/24/2023 12:05 PM EST [facility] Specimen Type POC Capillary 03/24/2023 12:05 PM EST [facility] Blood Capillary blood specimen / Unknown 03/24/2023 12:04 PM EST 03/24/2023 12:05 PM EST us Jerel Robertson DO LAB POINT OF CARE TE ST DOCKED DEVICE UNSOLICITED RESULTS Final Result Performing Organization Address City/[facility] Co de Phone Number [facility] [address] [place] [address] * Vitamin B12 (03/24/2023 9:26 AM EST) Vitamin B12, Serum 513 210 - 1,033 pg/mL 03/25/2023 8:33 AM EST [facility] Blood Venous blood specimen / Unknown Venipuncture / Unknown 03/24/2023 9:26 AM EST 03/24/2023 9:42 AM EST us Jerel Robertson DO LAB BLOOD ORDERABLES Final R esult Performing Organization Address City/[facility]/ZIP Co de Phone Number [facility] [address] [place] [address] * Ferritin (03/24/2023 9:26 AM EST) Pathologist [facility] Ferritin, Serum 165 20 - 400 ng/mL 03/24/2023 10:21 AM EST [facility] Blood Venous blood specimen / Unknown Venipuncture / Unknown 03/24/2023 9:26 AM EST 03/24/2023 9:42 AM EST us Jerel Robertson DO LAB BLOOD ORDERABLES Final R esult Performing Organization Address [facility] de Phone Number [facility] [address] [place] [address] * (ABNORMAL) POCT glucose meter (03/24/2023 8:25 AM EST) [facility] POCT Glucose 226(H) 74 - 99 mg/dL 03/24/2023 8:26 AM EST [facility] Comment:Accuracy of a glucos e result [...] 03/24/2023 8:26 AM EST [facility] Milking System Installer ID Holly Parsons 03/24/2023 8:26 AM EST [facility] Device ID [id number] 03/24/2023 8:26 AM EST [facility] Specimen Type POC Capillary 03/24/2023 8:26 AM EST [facility] Blood Capillary blood specimen / Unknown 03/24/2023 8:25 AM EST 03/24/2023 8:26 AM EST us Jerel Robertson DO LAB POINT OF CARE TE ST DOCKED DEVICE UNSOLICITED RESULTS Final Result Performing Organization Address City/[facility] Co de Phone Number [facility] [address] [place] [address] * (ABNORMAL) POCT glucose meter (03/24/2023 3:20 [...] for testing. Comment 03/24/2023 3:23 AM EST [facility] Milking System Installer ID Cristina Bailon 3:23 AM EST [facility] Device ID [id number] 03/24/2023 3:[address] [facility] Specimen Type POC Capillary 03/24/2023 3:[address] [facility] Blood Capillary blood specimen / Unknown 03/24/2023 3:20 AM EST 03/24/2023 3:23 AM EST us Jerel Robertson DO LAB POINT OF CARE TE ST DOCKED DEVICE UNSOLICITED RESULTS Final Result Performing Organization Address City/State/[facility] Co de Phone Number [facility] [address] [place] [address] * (ABNORMAL) Iron & Total Iron Binding Capacity, Plasma (Includes Transferrin) (03/24/2023 3:08 AM EST) Iron, Plasma 48(L) 50 - 170 ug/dL 03/24/2023 9:[address] [facility] Transferrin, Plasma 164(L) 200 - 360 mg/dL 03/24/2023 9:[address] [facility] Total Iron Binding Capacity, Plasma 205(L) 240 - 450 ug/mL 03/24/2023 9:[address] [facility] Transferrin Saturation 23 14 - 50 % 03/24/2023 9:[address] [facility] Blood Venous blood specimen / Unknown Venipuncture / Unknown 03/24/2023 3:08 AM EST 03/24/2023 3:12 AM EST us Jerel Robertson DO LAB BLOOD ORDERABLES Final R esult [facility] [address] [place] [address] * Magnesium (03/24/2023 3:08 AM EST) Magnesium, Plasma 2.3 1.9 - 2.4 mg/dL 03/24/2023 3:[address] [facility] Blood Venous blood specimen / Unknown Venipuncture / Unknown 03/24/2023 3:08 AM EST 03/24/2023 3:12 AM EST Jerel Robertson LAB BLOOD ORDERABLES Final R esult Performing Organization Address City/[facility]/ZIP Co de Phone Number [facility] [address] [place] [address] * (ABNORMAL) CBC (03/24/2023 3:08 AM EST) WBC Count 6.91 3.70 - 10.30 10*3/uL LAB HEMATOLOGY METHOD 03/24/2023 3:[address] [facility] RBC Count 3.13(L) 4.60 - 6.10 10*6/uL LAB HEMATOLOGY METHOD 03/24/2023 3:[address] [facility] HGB 8.8(L) 13.7 - 17.5 g/dL LAB HEMATOLOGY METHOD 03/24/2023 3:[address] [facility] HCT 27.4(L) 40.0 - 51.0 % LAB HEMATOLOGY METHOD 03/24/2023 3:[address] [facility] Platelet Count 193 155 - 369 10*3/uL LAB HEMATOLOGY METHOD 03/24/2023 3:[address] [facility] MCV 88 79 - 98 fL LAB HEMATOLOGY METHOD 03/24/2023 3:[address] [facility] MCH 28.1 26.0 - 32.0 pg LAB HEMATOLOGY METHOD 03/24/2023 3:[address] [facility] MCHC 32.1 30.7 - 35.5 g/dL LAB HEMATOLOGY METHOD 03/24/2023 3:[address] [facility] RDW 13.6 11.5 - 14.5 % LAB HEMATOLOGY METHOD 03/24/2023 3:[address] [facility] MPV 11.8 8.8 - 12.5 fL LAB HEMATOLOGY METHOD 03/24/2023 3:[address] [facility] nRBC 0.0 <=0.0 per 100 WBCs LAB HEMATOLOGY METHOD 03/24/2023 3:[address] [facility] Blood Venous blood specimen / Unknown Venipuncture / Unknown 03/24/2023 3:08 AM EST 03/24/2023 3:12 AM EST us Jerel Robertson DO LAB BLOOD ORDERABLES Final R esult [facility] [address] [place] [address] * (ABNORMAL) Basic metabolic panel (03/24/2023 3:08 AM EST) Glucose, Plasma 298(H) 74 - 99 mg/dL 03/24/2023 3:[address] [facility] BUN, Plasma 76(H) 7 - 21 mg/dL 03/24/2023 3:[address] [facility] Creatinine, Plasma 2.99(H) 0.80 - 1.30 mg/dL 03/24/2023 3:[address] [facility] BUN/Creatinine Ratio 25 03/24/2023 3:[address] [facility] Sodium, Plasma 139 136 - 145 mmol/L 03/24/2023 3:[address] [facility] Potassium, Plasma 5.1(H) 3.7 - 4.8 mmol/L 03/24/2023 3:[address] [facility] Chloride, Plasma 101 97 - 107 mmol/L 03/24/2023 3:[address] [facility] CO2, Plasma 26 22 - 29 mmol/L 03/24/2023 3:[address] [facility] Anion Gap 12 6 - 16 mmol/L 03/24/2023 3:[address] [facility] Total Calcium, Plasma 8.5(L) 8.9 - 10.2 mg/dL 03/24/2023 3:[address] [facility] eGFRcr 23.9 mL/min/1.7 3m*2 03/24/2023 3:41 AM EST [facility] Comment:Reported eGFRcr in m L/min/1.73m2 is based the CKD-EPI 2020 equation that does not use a race coefficient. Blood Venous blood specimen / Unknown Venipuncture / Unknown 03/24/2023 3:08 AM EST 03/24/2023 3:12 AM EST Jerel Robertson DO LAB BLOOD ORDERABLES Final R esult Performing Organization Address City/[facility] Co de Phone Number [facility] [address] [place] [address] * (ABNORMAL) POCT glucose meter (03/23/2023 8:47 [...] Comment 03/23/2023 8:50 PM EST [facility] Milking System Installer ID Cammie Hernandez 03/23/2023 8:50 PM EST [facility] Device ID [id number] 03/23/2023 8:50 PM EST [facility] Specimen Type POC Capillary 03/23/2023 8:50 PM EST [facility] Blood Capillary blood specimen / Unknown 03/23/2023 8:47 PM EST 03/23/2023 8:50 PM EST Jerel Robertson DO LAB POINT OF CARE TE ST DOCKED DEVICE UNSOLICITED RESULTS Final Result Performing Organization Address City/[facility] Co de Phone Number [facility] [address] [place] [address] * Multi Drug Resistance Test (03/23/2023 8:13 PM EST) Culture No Multi Drug Resistant Organisms Isolated 03/25/2023 6:45 AM EST [facility] Swab (Nares and Josefina Rectal) Non-blood Collection / Unknown 03/23/2023 8:13 PM EST 03/23/2023 8:30 PM EST us Jerel Robertson DO LAB MICROBIOLOGY - GENERAL O RDERABLES Final Result Performing Organization Address [facility] de Phone Number [facility] [address] [place] [address] * (ABNORMAL) POCT glucose meter (03/23/2023 4:55 PM EST) Pathologist [facility] POCT Glucose 434(H) 74 - 99 mg/dL 03/23/2023 4:56 PM EST [facility] Comment:Accuracy of a glucos e result [...] for testing. Comment 03/23/2023 4:[address] [facility] Milking System Installer ID Bisi Hurley 03/23/2023 4:[address] [facility] Device ID [id number] 03/23/2023 4:[address] [facility] Specimen Type POC Capillary 03/23/2023 4:[address] [facility] Blood Capillary blood specimen / Unknown 03/23/2023 4:55 PM EST 03/23/2023 4:56 PM EST us Jerel Robertson DO LAB POINT OF CARE TE ST DOCKED DEVICE UNSOLICITED RESULTS Final Result Performing Organization Address [facility] de Phone Number [facility] [address] [place] [address] * (ABNORMAL) Troponin T, High Sensitivity, 2 Hour, Plasma (03/23/2023 11:34 AM EST) [facility] Troponin T, High Sensitivity, 2 Hour 185(H) <19 ng/L 03/23/2023 11:58 AM EST [facility] Troponin Delta 21(H) <10 ng/L 03/23/2023 11:58 AM EST [facility] Troponin Delta Interpretation Significant 03/23/2023 11:58 AM EST [facility] Comment:Significant change i n Troponin observed [...] City/[facility]/ZIP Co de Phone Number [facility] [address] [place] [id number] * EKG now - STAT (adult) (03/23/2023 10:46 AM EST) EKG DIAGNOSIS CLASS Abnormal MUSE ECG Ventricular Rate 73 BPM MUSE ECG Atrial Rate 73 BPM MUSE ECG WY Interval 140 ms MUSE ECG QRSD Interval 102 ms MUSE ECG QT Interval 416 ms MUSE ECG QTC Interval 458 ms MUSE ECG P [place] 42 degrees MUSE ECG R [place] -6 degrees MUSE ECG T Wave [place] 190 degrees MUSE ECG Diagnosis Normal sinus rhythm MUSE ECG Diagnosis Left ventricular hypertrophy MUSE ECG Diagnosis with repolarization abnormality MUSE ECG Diagnosis ( MUSE ECG Diagnosis [place] product MUSE ECG Diagnosis ) MUSE ECG [...] ECG Atrial Rate 75 BPM MUSE ECG WY Interval 144 ms MUSE ECG QRSD Interval 100 ms MUSE ECG QT Interval 414 ms MUSE ECG QTC Interval 462 ms MUSE ECG P [place] 49 degrees MUSE ECG R [place] -9 degrees MUSE ECG T Wave [place] 198 degrees MUSE ECG Diagnosis Normal sinus rhythm MUSE ECG Diagnosis Left ventricular hypertrophy MUSE ECG Diagnosis with repolarization abnormality MUSE ECG Diagnosis ( MUSE ECG Diagnosis [place] product MUSE ECG Diagnosis ) MUSE ECG [...] 9:39 AM Final report signed by Gurinder Ortzi MD on 03/23/2023 9:53 AM Narrative 03/23/2023 [...] <0.50 ug/mL FEU 03/23/2023 11:23 AM EST [facility] Blood Venous blood specimen / Unknown Venipuncture / Unknown 03/23/2023 9:29 AM EST 03/23/2023 9:32 AM EST Narrative [facility] - 03/23/2023 11:23 AM EST Test [...] Marlow MD LAB BLOOD ORDERABLES Final Result [facility] [address] [place] [address] * PT-INR (03/23/2023 9:29 AM EST) Pathologist [facility] Prothrombin Time 13.3 12.0 - 14.3 sec 03/23/2023 9:44 AM EST [facility] INR 1.1 0.9 - 1.1 03/23/2023 9:44 AM EST [facility] Blood Venous blood specimen / Unknown [...] INR 2.5 to 3.5 Prevention of recurrent IA ? INR 2.5 to 3.5 Amrit Marlow MD LAB BLOOD ORDERABLES Final Result Performing Organization Address City/State/[facility] Co de Phone Number [facility] [address] [place] [address] * (ABNORMAL) CBC w/diff (03/23/2023 9:29 AM EST) [facility] WBC Count 5.74 3.70 - 10.30 10*3/uL LAB HEMATOLOGY METHOD 03/23/2023 9:[address] [facility] RBC Count 3.95(L) 4.60 - 6.10 10*6/uL LAB HEMATOLOGY METHOD 03/23/2023 9:35 AM EST [facility] HGB 11.1(L) 13.7 - 17.5 g/dL LAB HEMATOLOGY METHOD 03/23/2023 9:[address] [facility] HCT 35.0(L) 40.0 - 51.0 % LAB HEMATOLOGY METHOD 03/23/2023 9:35 AM EST [facility] Platelet Count 234 155 - 369 10*3/uL LAB HEMATOLOGY METHOD 03/23/2023 9:[address] [facility] MCV 89 79 - 98 fL LAB HEMATOLOGY METHOD 03/23/2023 9:[address] [facility] MCH 28.1 26.0 - 32.0 pg LAB HEMATOLOGY METHOD 03/23/2023 9:[address] [facility] MCHC 31.7 30.7 - 35.5 g/dL LAB HEMATOLOGY METHOD 03/23/2023 9:35 AM [facility] RDW 13.8 11.5 - 14.5 % LAB HEMATOLOGY METHOD 03/23/2023 9:[address] [facility] MPV 11.0 8.8 - 12.5 fL LAB HEMATOLOGY METHOD 03/23/2023 9:35 AM [facility] nRBC 0.0 <=0.0 per 100 WBCs LAB HEMATOLOGY METHOD 03/23/2023 9:35 AM [facility] Differential Type Automated LAB HEMATOLOGY METHOD 03/23/2023 9:35 AM [facility] Neutrophils % 84.0 % LAB HEMATOLOGY METHOD 03/23/2023 9:35 AM [facility] Lymphocytes % 13.0 % LAB HEMATOLOGY METHOD 03/23/2023 9:35 AM [facility] Monocytes % 2.0 % LAB HEMATOLOGY METHOD 03/23/2023 9:[address] [facility] Eosinophils % 0.0 % LAB HEMATOLOGY METHOD 03/23/2023 9:35 AM [facility] Basophils % 0.0 % LAB HEMATOLOGY METHOD 03/23/2023 9:35 AM [facility] Immature Granulocytes % 1.0 % LAB HEMATOLOGY METHOD 03/23/2023 9:35 AM [facility] Neutrophils Absolute 4.79 1.60 - 6.10 10*3/uL LAB HEMATOLOGY METHOD 03/23/2023 9:[address] [facility] Lymphocytes Absolute 0.74(L) 1.20 - 3.90 10*3/uL LAB HEMATOLOGY METHOD 03/23/2023 9:[address] [facility] Monocytes Absolute 0.14(L) 0.30 - 0.90 10*3/uL LAB HEMATOLOGY METHOD 03/23/2023 9:[address] [facility] Eosinophils Absolute 0.01 0.00 - 0.50 10*3/uL LAB HEMATOLOGY METHOD 03/23/2023 9:35 AM [facility] Basophils Absolute 0.02 0.00 - 0.10 10*3/uL LAB HEMATOLOGY METHOD 03/23/2023 9:[address] [facility] Immature Granulocytes Absolute 0.04 0.00 - 0.06 10*3/uL LAB HEMATOLOGY METHOD 03/23/2023 9:[address] [facility] Blood Venous blood specimen / Unknown Venipuncture / Unknown 03/23/2023 9:29 AM EST 03/23/2023 9:[address] [facility] - 03/23/2023 9:35 AM EST Therapeutic decision making should be based on absolute values, rather than percentages. us Amrit Marlow MD LAB BLOOD ORDERABLES Final Result [facility] [address] [place] [id number] * (ABNORMAL) Blood gas panel, venous (03/23/2023 9:29 AM EST) pH, Venous 7.35 7.32 - 7.43 LAB HEMATOLOGY METHOD 03/23/2023 9:[address] [facility] pCO2, Venous 55 40 - 55 mmHg LAB HEMATOLOGY METHOD 03/23/2023 9:[address] [facility] pO2, Venous 27 25 - 40 mmHg LAB HEMATOLOGY METHOD 03/23/2023 9:[address] [facility] SO2, Measured, Venous 41(L) 65 - 80 % LAB HEMATOLOGY METHOD 03/23/2023 9:[address] [facility] Base Excess, Venous 3.4(H) -2.0 - 3.0 mmol/L LAB HEMATOLOGY METHOD 03/23/2023 9:[address] [facility] Bicarbonate, Calculated, Venous 30(H) 22 - 26 mmol/L LAB HEMATOLOGY METHOD 03/23/2023 9:[address] [facility] Hematocrit, Whole Blood 34.4(L) 40.0 - 51.0 % LAB HEMATOLOGY METHOD 03/23/2023 9:[address] [facility] Sodium, Whole Blood 141 136 - 145 mmol/L LAB HEMATOLOGY METHOD 03/23/2023 9:[address] [facility] Potassium, Whole Blood 5.1(H) 3.6 - 4.9 mmol/L LAB HEMATOLOGY METHOD 03/23/2023 9:[address] [facility] Chloride, Whole Blood 101 97 - 107 mmol/L LAB HEMATOLOGY METHOD 03/23/2023 9:[address] [facility] Glucose, Whole Blood 267(H) 74 - 99 mg/dL LAB HEMATOLOGY METHOD 03/23/2023 9:[address] [facility] Lactate, Venous, Whole Blood 1.7 0.5 - 2.2 mmol/L LAB HEMATOLOGY METHOD 03/23/2023 9:[address] [facility] Ionized Calcium, Whole Blood 4.6 4.6 - 5.1 mg/dL LAB HEMATOLOGY METHOD 03/23/2023 9:[address] [facility] Blood Venous blood specimen / Unknown Venipuncture / Unknown 03/23/2023 9:29 AM EST 03/23/2023 9:40 AM EST us Amrit Marlow MD LAB BLOOD ORDERABLES Final Result Performing Organization Address City/[facility]/ZIP Co de Phone Number [facility] [address] [place] [address] * (ABNORMAL) Troponin now and 120 min (03/23/2023 9:29 AM EST) Troponin T, High Sensitivity, 0 Hour 206(H) <19 ng/L 03/23/2023 10:[address] [facility] Blood Venous blood specimen / Unknown Venipuncture / Unknown 03/23/2023 9:29 AM EST 03/23/2023 9:32 AM EST us Amrit Marlow MD LAB BLOOD ORDERABLES Final Result [facility] [address] [place] [address] * (ABNORMAL) BNP (03/23/2023 9:29 AM EST) N-Terminal, PROBNP, Plasma 35,083(H) 0 - 899 pg/mL 03/23/2023 10:[address] [facility] Blood Venous blood specimen / Unknown Venipuncture / Unknown 03/23/2023 9:29 AM EST 03/23/2023 9:32 AM EST us Amrit Marlow MD LAB BLOOD ORDERABLES Final Result Performing Organization Address City/[facility] Co de Phone Number [facility] [address] [place] [address] * (ABNORMAL) Phosphorus (03/23/2023 9:29 AM EST) Phosphorus, Plasma 4.8(H) 2.5 - 4.5 mg/dL 03/23/2023 10:00 AM EST [facility] Blood Venous blood specimen / Unknown Venipuncture / Unknown 03/23/2023 9:29 AM EST 03/23/2023 9:32 AM EST us Amrit Marlow MD LAB BLOOD ORDERABLES Final Result Performing Organization Address [facility] Co de Phone Number [facility] [address] [place] [address] * Magnesium (03/23/2023 9:29 AM EST) Magnesium, Plasma 2.1 1.9 - 2.4 mg/dL 03/23/2023 10:00 AM EST [facility] Blood Venous blood specimen / Unknown Venipuncture / Unknown 03/23/2023 9:29 AM EST 03/23/2023 9:32 AM EST us Amrit Marlow MD LAB BLOOD ORDERABLES Final Result Performing Organization Address City/[facility] Phone Number [facility] [address] [place] [address] * (ABNORMAL) CMP (03/23/2023 9:29 AM EST) [...] 136 - 145 mmol/L 03/23/2023 10:00 AM [facility] Potassium, Plasma 5.4(H) 3.7 - 4.8 mmol/L 03/23/2023 10:00 AM [facility] Chloride, Plasma 100 97 - 107 mmol/L 03/23/2023 10:00 AM [facility] CO2, Plasma 28 22 - 29 mmol/L 03/23/2023 10:00 AM [facility] Anion Gap 10 6 - 16 mmol/L 03/23/2023 10:00 AM [facility] Total Calcium, Plasma 9.1 8.9 - 10.2 mg/dL 03/23/2023 10:00 AM [facility] Total Protein 6.8 6.3 - 7.9 g/dL 03/23/2023 10:00 AM [facility] Albumin, Plasma 3.6 3.5 - 5.2 g/dL 03/23/2023 10:00 AM [facility] AST, Plasma 49 10 - 50 U/L 03/23/2023 10:00 AM [facility] Comment:Hemolyzed, result ma y be falsely increased. ALT, Plasma 26 10 - 50 U/L 03/23/2023 10:00 AM [facility] Alkaline Phosphatase, Plasma 188(H) 40 - 115 U/L 03/23/2023 10:00 AM [facility] Total Bilirubin, Plasma 0.7 0.2 - 1.1 mg/dL 03/23/2023 10:00 AM [facility] eGFRcr 25.5 mL/min/1.7 3m*2 03/23/2023 10:00 AM [facility] Comment:Reported eGFRcr in m L/min/1.73m2 is based the CKD-EPI 2020 equation that does not use a race coefficient. Blood Venous blood specimen / Unknown Venipuncture / Unknown 03/23/2023 9:29 AM EST 03/23/2023 9:32 AM EST us Amrit Marlow MD LAB BLOOD ORDERABLES Final Result [facility] [address] [place] [phone] * (ABNORMAL) POCT glucose meter (03/23/2023 9:16 AM EST) POCT Glucose 238(H) 74 - 99 mg/dL 03/23/2023 9:18 AM EST [facility] Comment:Accuracy of a glucos e result [...] for testing. Comment 03/23/2023 9:18 AM EST [facility] Milking System Installer ID Shabana Augustin 03/23/2023 9:18 AM EST [facility] Device ID [id number] 03/23/2023 9:18 AM EST [facility] Specimen Type POC Capillary 03/23/2023 9:18 AM EST [facility] Blood Capillary blood specimen / Unknown 03/23/2023 9:16 AM EST 03/23/2023 9:18 AM EST us Generic Provider Poct LAB POINT OF CARE TEST DOCKED DEVICE UNSOLICITED RESULTS Final Result Performing Organization Address City/State/[facility] Co de Phone Number [facility] [address] [place] [phone] documented in this encounter Visit Diagnoses Diagnosis [...] Wed03/25/23 at 1644, Routine, line care Tiotropium Burd[place] Monohydrate (Spiriva Respimat) 2.5 MCG/ACT inhaler 2 [...] Until Discontinued, Routine 2130 (Given - Provider: Charltote Cooper RN) 0509 (Given - Provider: Charlotte [...] Landa, JAME - Reason: Patient/family refused) Tiotropium [place] Monohydrate (Spiriva Respimat) 2.5 MCG/ACT inhaler 2 [...] needed, Starting on Wed03/23/23 at 1537, Until Chelita 03/25/23 at 1644, Routine, line care Linked [...] needed, Starting on Wed03/23/23 at 1537, Until Chelita 03/25/23 at 1644, Routine, line care documented in this encounter Additional Health Concerns Infection Onset Date Last Indicated Resolved Time MRSA Comment:Positive blood culture 03/03/2019 01/30/2024 Assessment Noted Time A Body Mass Index follow-up plan has been documented for the patient 03/25/2023 11:58 AM EST documented as of this encounter Care Teams Grocery Buyer Relationship Specialty Start Date End Date Terence Ring [address] [place] [id number] PCP - General 08/09/20 03/23/23 Erik Hurley MD [address] [place] [id number] PCP - General 03/24/23 06/13/23 documented as of this encounter
--- OUTSIDE RECORDS SUMMARY | 2024-02-24 15:32 | XMS_ITS | Encounter Summary ---
Author Organization [facility] Address [address] [place] [address] Care Team Providers Care Firer Diesel Locomotive Name Role Phone Jhonathan Terence Covarrubias Primary Care Provider Encounter Details Date Type [...] slept in a intermediate (including now)? No 03/24/2023 CAGE ASSESSMENT Answer [...] drink first t erin in the morning (EYE-TRUCK BENCH MECHANIC) to steady your nerves or to get [...] Description 03/07/2024 1:40 PM EST Office Visit [facility] [place] [facility] [address], [address] [place] [address] Naeem Blunt MD [address] [place] [phone] documented as of this encounter Visit Diagnoses Not on filedocumented in this encounter Additional Health Concerns Infection Onset Date Last Indicated Resolved Time MRSA Comment:Positive blood culture 03/03/2019 01/30/2024 Assessment Noted Time A Body Mass Index follow-up plan has been documented for the patient 03/25/2023 11:58 AM EST documented as of this encounter Care Teams Firer Diesel Locomotive Relationship Specialty Start Date End Date Terence Ring [address] [place] [id number] PCP - General 08/09/20 03/23/23 documented as of this encounter
--- OUTSIDE RECORDS SUMMARY | 2024-02-24 15:32 | XMS_ITS | Encounter Summary ---
Author Organization Healthcare Address [address] [place] [address] Care Team Providers Care Lens Gauger Name Role Phone Jhonathan Terence Covarrubias Primary Care Provider [phone] Judy Minaya LPN Unavailable Unavailable Encounter Details Date Type Department Care Team ([facility] st Contact Info) Description 03/11/2023 Telephone [facility] [address], [address] [place] [address] Tamara Muñoz, SALES PROMOTION COORDINATOR GS - 7 MAIN MEDICAL-SURGICAL Social History [...] slept in a chcf (including now)? No 02/05/2023 CAGE ASSESSMENT Answer [...] drink first t erin in the morning (EYE-PRODUCT DEVELOPMENT ECOLOGIST) to steady your nerves or to get rid of a hangover? 0 02/05/2023 CAGE Questionnaire Score 0 023 Utilities Answer Date Recorded In the past 12 months has th e [employer], gas, oil, or water company threatened to [...] Description 03/07/2024 1:40 PM EST Office Visit [facility] [place] [facility] [address], [address] [place] [address] Naeem Blunt MD [address] [place] [address] documented as of this encounter Visit Diagnoses Not on filedocumented in this encounter Additional Health Concerns Infection Onset Date Last Indicated Resolved Time MRSA Comment:Positive blood culture 03/03/2019 01/30/2024 Assessment Noted Time A Body Mass Index follow-up plan has been documented for the patient 02/12/2023 12:32 PM EST documented as of this encounter Care Teams Lens Gauger Relationship Specialty Start Date End Date Terence Ring [address] [place] [id number] PCP - General 08/09/20 03/23/23 Judy Minaya LPN [employer]UE[employer] [address] TCM Nurse 02/16/23 03/18/23 documented as of this encounter
--- OUTSIDE RECORDS SUMMARY | 2024-02-24 15:33 | XMS_ITS | Encounter Summary ---
Author Organization [facility] Address [address] [place] [address] Care Team Providers Care Jordan Worker Name Role Phone Terence Ring Primary Care Provider [phone] Reason for Referral * Home Health (Routine) - Authorized Specialty Diagnoses / Procedures Referred By Contac t Referred To Contact Home Health Services / Case Management Diagnoses Acute respiratory failure with hypoxia (CMS/HCC) Harlan Ricketts MD [address] [place] [phone] Phone: tel: fax: Referral ID Status Reason Start Date Expiration Date Visits Requested Visits Authorized Authorized Specialty Services Required 3 08/13/2024 999 999 * Consultation (Routine) - Authorized Specialty Diagnoses / Procedures Referred By Contac t Referred To Contact Nephrology Diagnoses Acute respiratory failure with hypoxia (CMS/HCC) Harlan Ricketts MD [address] [place] [phone] Phone: tel: fax: [facility] Nephrology, Bone & Mineral Metabolism [address], [address] [place] [address] Phone: tel: fax: Referral ID Status Reason Start Date Expiration Date Visits Requested Visits Authorized [id number] Authorized Specialty Services Required 3 08/13/2024 1 1 Reason for Visit * Reason Comments Shortness of Breath * Auth/Cert (Routine) Specialty Diagnoses / Procedures Referred By Contac t Referred To Contact Diagnoses Acute respiratory failure with hypoxia (CMS/HCC) n-stemi and COPD exacerbation Cary Restrepo MD [address] [place] [address] Phone: tel: fax: [facility] Emergency Department [address] [place] [address] Phone: tel: Referral ID Status Reason Start Date Expiration Date Visits Re quested Visits Authorized [id number] 1 1 Encounter Details Date Type Department Care Team (Late st Contact Info) Description 02/03/2023 6:36 AM EST - 02/12/2023 3:01 PM EST Hospital Encounter [facility] Inpatient [address] [place] [address] Don Jeffries MD [facility] [place] [address] Niko Rodriguez MD [facility] [place] [phone] Cary Restrepo MD [address] [place] [address] Darrin Mitchell MD [address] [place] [address] Harlan Ricketts MD [address] [place] [address] Shortness of breath (Primary Dx); [...] in a skilled nursing (including now)? No 02/05/2023 CAGE ASSESSMENT Answer [...] drink first t erin in the morning (EYE-JOINT FINISHER) to steady your nerves or to get rid of a hangover? 0 02/05/2023 CAGE Questionnaire Score 0 023 Utilities Answer Date Recorded In the past 12 months has th e [address], gas, oil, or water company threatened to [...] Taking Your Medicines After a Heart Attack (Emirati) * Aspirin Chewable Tablet ([place]) (Emirati) * Clopidogrel Bisulfate Oral Tablet ([place]) (Emirati) * Atorvastatin Calcium Oral Tablet ([place]) (Emirati) * Carvedilol Oral Tablet ([place]) (Emirati) * Nitroglycerin Sublingual Tablet ([place]) (Emirati) * Hydralazine Oral Tablet (Emirati) * Isosorbide Dinitrate Oral Tablet (Emirati) documented in this encounter Medications at Time [...] day. 90 tablet 11 02/12/2023 4 Umeclidinium [place] (Incruse Ellipta) 62.5 MCG/ACT aerosol powder Inhale 1 Inhalation 1 (one) time each day. 7 each 1 02/12/2023 4 documented as of this encounter Miscellaneous Notes * Progress Notes - Sirisha Chong RN - 02/12/2023 1:43 PM EST Case Management Adult Progress Note Robert Hurley 57 y.o. male CSN: [id number] Admission: 02/03/2023 6:36 AM Primary Problem: Acute respiratory failure with hypoxia (CMS/HCC) Anticipated Discharge Date: Today Additional Comments: RN CM sent Home Health PT/OT referrals via [employer]. Acceptance is pending. SW/RN CM will follow and arrange any discharge needs closer to discharge. Sirisha Chong RN * Discharge Summary - Josh Mcmanus MD - 02/12/2023 1:32 PM EST Hospitalization Admit Date/Time: 02/03/2023 6:36 AM Admitting Attending: Cary Restrepo Discharge Date: 02/12/23 Discharge Attending Physician: Harlan Ricketts MD PCP name and Address: Terence Ring [facility] [place] [address] Referring provider name and address: John Odom MD [place], [place] Chief Concern, Brief History of Present [...] 62.5 MCG/ACT aerosol powder Generic drug: Umeclidinium [place] Inhale 1 Inhalation 1 (one) time each [...] Your Medications These medications were sent to [facility] - [place], [place] - [address] [employer] [facility] [employer] [facility] [address] aspirin 81 MG chewable tablet atorvastatin 80 [...] 03/15/2023 3:00 PM MATI DUNCAN FELLOW (2) [facility] PAC Test Results Pending At Discharge [...] failure 2/2 pulm edema on 02/03 to [facility]. He has a PMH of CADs/p PCI, HFmrEF, COPD, DMII, CAMACHO cirrhosis, left AKA. He required BiPAP for resp support and high dose diuretics. Pt Transferred to [facility] on 02/05 due to concern for type [...] will need close follow up with local research environmental engineer and nephrology, with close monitoring of renal [...] Level of Mobility: Ambulatory- household only Mobility [place]: Independent gait with device History of Falls: [...] Transfer Exam: Sit to stand Level of [place]: Contact guard (x2 reps; requiring increased time to achieve 100% upright) Physical/Nonphysical Assist: Verbal Cues Transfer Exam: Stand to Sit Level of [place]: Contact guard Physical/Nonphysical Assist: Verbal Cues Gait [...] improved. Standardized Assessments Standardized Assessments Standardized Assessments: [facility] [...] railing?: A lot [facility] 6-Clicks Mobility Assessment Total : 17 Assessment [...] Note Robert Hurley 57 y.o. male CSN: [id number] Admission: 02/03/2023 6:36 AM Primary Problem: Acute respiratory failure with hypoxia (CMS/HCC) Primary Bindery Worker: Primary Caregiver: Self Assistance Available at Discharge: Availability of Care Givers (#Hours): 5-9 hours Family/Bindery Worker(s) Willingness Assessed to care for patient at [...] last 30 days Follow-up: John Odom MD [facility] Nephrology, Bone & Mineral Metabolism [address], [address] [facility] [address] Discharge Transportation: Transportation Anticipated: [...] Beds. The patient is enrolled in the [facility] Transitional Care program under the Transitional Care Model. Transitions will assist with support and education at the time of discharge. Patient states that his prosthesis offset lithographic press operator is missing currently. Per bedside nurse, the PT team was trying to locate the offset lithographic press operator. RN MYRANDA reached out to the Hearing Screen Coordinator, Lost and Found, Housekeeping, and EVS but all stated they didn't have a offset lithographic press operator matching the description. There are no further discharge needs to be identified. The JAME WHITMORE will continue to monitor the patient's progress and provide assistance with discharge as necessary. Sirisha Chong RN UPDATE: The patient's offset lithographic press operator was found and returned to him. * [...] work-up of Acute respiratory failure with hypoxia ([facility]). Problem List Active Hospital [...] Precautions: Fall precautions Subjective They lost my offset lithographic press operator for my leg when they moved me [...] Level of Mobility: Ambulatory- household only Mobility [place]: Independent gait with device History of Falls: [...] Transfer Exam: Sit to stand Level of [place]: Contact guard Physical/Nonphysical Assist: Verbal Cues Transfer Exam: Stand to Sit Level of [place]: Contact guard Physical/Nonphysical Assist: Verbal Cues Functional Mobility Device: (pt deferred due to prosthesis offset lithographic press operator currently missing and risk of prosthesis losing [...] tasks due to pt with missing prosthesis offset lithographic press operator. Will further assess mobility as appropriate. OT [...] Note Robert Hurley 57 y.o. male CSN: [id number] Admission: 02/03/2023 6:36 AM Primary Problem: Acute [...] HTN, HFrEF, T2DM, HLD, CAD s/p stents, ID, CAMACHO cirrhosis, depression, and left AKA presents [...] in cardiology clinic for further work-up. # KOOK due to ATN on CKD -- secondary [...] failure 2/2 pulm edema on 02/03 to [facility]. He has a PMH of CADs/p [...] HTN, HFrEF, T2DM, HLD, CAD s/p stents, ID, CAMACHO cirrhosis, depression, and left AKA presents [...] Note Robert Hurley 57 y.o. male CSN: [id number] Room/Bed 133/133A Nutrition evaluation type: assessment Reason for evaluation: [facility] course: 57 yoM with PMH COPD, HTN, HFrEF, T2DM, HLD, CAD s/p stents, ID, CAMACHO cirrhosis, depression, and left AKA who [...] OF STENT N/A Cath Stent Placement from [facility] CHOLECYSTECTOMY N/A Cholecystectomy from [facility] Social history: Smoker Additional comments: Visited with [...] isosorbide dinitrate, 40 mg, Oral, TID Tiotropium [place] Monohydrate, 2 puff, Inhalation, Daily PRN medications: [...] (Calculated): 25.26 Weight Evaluation: Overweight (BMI 25-29.9) [place]ctor Body Weight (kg): 72 (adjusted for AKA) Percent [place] Body Weight: 117 Wt Readings from Last [...] oz) Estimated Needs: Kcal/ K-27 Kcal Provided: 7063-2914 Kcal Needs Based On: Current weight (84.5 kg) Metabolic Cart Study Results: Current Nutrition Intake: Diet Supplements: None Diet Order: NPO Percent Meals Eaten (%): ~67% avg of last 12 intakes documented from 02/04-02/09 before going NPO Diet Experience and Nutrition History: Diet Education Provided: Will monitor Pertinent home medications: Noted Taoism needs: None noted Nutrition Focused Physical Exam: [...] HTN, HFrEF, T2DM, HLD, CAD s/p stents, ID, CAMACHO cirrhosis, depression, and left AKA presents [...] Dispo: EDD tomorrow. Brad Matias DO PGY5 Scrap Materials Buyer Cosigned by Harlan Ricketts MD at 02/10/2023 [...] been discussed with the patient and/or their underwriting service representative. All questions answered and they agree [...] HTN, HFrEF, T2DM, HLD, CAD s/p stents, ID, CAMACHO cirrhosis, depression, and left AKA presents [...] at [facility] - Will hold off on clinical laboratory medical director due to renal function. - Pt was loaded with aspirin. Maintenance of Aspirin and Plavix. - Pt is currently on Atorvastatin 80. - Place patient on Heparin Drip- d/c at 48 hours. - Will continue nitroglycerin as needed - Continued Coreg 6.25 home dose; possibly increase tomorrow. - Possibly clinical laboratory medical director next week with review of KOKO. # [...] PM EST Hospital visit made. Went over [facility] program. Patient verbalized understanding and agreed to program. Enrolled patient in [facility] Transitional Care program under Transitional Care Model. Transitions will assist with support and education at time of discharge. Hospital girls tennis coach will follow thr oughout stay. Home girls tennis coach will see patient within 48 hours of discharge and follow with home visits and telephone contact times 6 weeks. Provided [facility] folder with brochure, educational materials, and contact information to patient. * Progress Notes - Sirisha Chong RN - 02/08/2023 10:36 AM EST Case Management Adult Progress Note Robert Hurley 57 y.o. male CSN: [id number] Admission: 02/03/2023 6:36 AM Primary Problem: Acute respiratory failure with hypoxia (CMS/HCC) Anticipated Discharge Date: 02/07/2023 Additional Comments: Chart review completed. The patient transferred to [facility] due to concern for NSTEMI and for [...] HTN, HFrEF, T2DM, HLD, CAD s/p stents, ID, CAMACHO cirrhosis, depression, and left AKA presents [...] at [facility] - Will hold off on clinical laboratory medical director due to renal function. - Pt was loaded with aspirin. Maintenance of Aspirin and Plavix. - Pt is currently on Atorvastatin 80. - Place patient on Heparin Drip- d/c at 48 hours. - Will continue nitroglycerin as needed - Restart Coreg 6.25 home dose; possibly increase tomorrow. - Possibly clinical laboratory medical director next week with review of KOKO. # [...] Heparin Code Status: full Dispo: Admit to [facility] Josh Mcmanus MD Internal Medicine, PGY-1 Cosigned [...] HTN, HFrEF, T2DM, HLD, CAD s/p stents, ID, CAMACHO cirrhosis, depression, and left AKA presents [...] at [facility] - Will hold off on clinical laboratory medical director due to renal function. - Pt was loaded with aspirin. Maintenance of Aspirin and Plavix. - Pt is currently on Atorvastatin 80. - Place patient on Heparin Drip- d/c at 48 hours. - Will continue nitroglycerin as needed - Restart Coreg 6.25 home dose. - Possibly clinical laboratory medical director next week. # KOKO on CKD - [...] HTN, HFrEF, T2DM, HLD, CAD s/p stents, ID, CAMACHO cirrhosis, depression, and left AKA who presented to [facility] on 02/03 for acute hypoxic respiratory [...] medicine team consulted and transferred pt to [facility] due to recent echocardiogram and concernfor Type [...] OF STENT N/A Cath Stent Placement from [facility] CHOLECYSTECTOMY N/A Cholecystectomy from [facility] Family History family history includes Conversions - [...] is no recent study available for direct [id number] comparison. Consider further evaluation with a transesophageal echocardiogram if clinically indicated. ECG/Telemetry: - Sinus rhythm with diffuse T wave inversions. ASSESSMENT/PLAN Robert uHrley is a 57 yoM with PMH COPD, HTN, HFrEF, T2DM, HLD, CAD s/p stents, ID, CAMACHO cirrhosis, depression, and left AKA presents [...] at [facility] - Will hold off on clinical laboratory medical director due to renal function. - Pt was loaded with aspirin. Maintenance of Aspirin and Plavix. - Pt is currently on Atorvastatin 80. - Place patient on Heparin Drip. - Will continue nitroglycerin - Possibly will restart Coreg 6.25 home dose. - Possibly clinical laboratory medical director next week. # KOKO on CKD - [...] Note Robert Hurley 57 y.o. male CSN: [id number] Admission: 02/03/2023 6:36 AM Primary Problem: Acute respiratory failure with hypoxia (CMS/HCC) Radiology Technician reviewed chart and spoke with patient to complete this Initial Case Management Assessment. PCP: Terence Ring Emergency Contact: Extended Emergency Contact Information Primary Emergency Contact: Saurabh Hurley Mobile Relation: Other Preferred language: Emirati Sneller Hand needed? No Insurance: Primary Visit Coverage Payer Plan Sponsor Code Group Number Group Name MEDICARE MEDICARE PART A ONLY Primary Visit Coverage Subscriber Subscriber ID Subscriber Name Subscriber N Subscriber Address [id number] ROBERT HURLEY JR [id number] [place] [address] Secondary Visit Coverage Payer Plan Sponsor Code Group Number Group Name [place] Secondary Visit Coverage Subscriber Subscriber ID Subscriber Name Subscriber SSN Subscriber Address [id number] ROBERT HURLEY [id number] [address] Patient information: Primary Caregiver: Self Support System: Immediate family Daily Living Activities: Functional Status: Independent Living Arrangements: Alone Type of Residence: Private residence [address] [address] Smoker in the Home?: N/A Current DME: [...] Dialysis Services: none Living Will/Advance Directive/Power of Mate Fishing Vessel /Guardian: Additional Comments: Patient states he lives [...] Edited by: Jake Saunders MD at 02/03/2023 3844 Presentation and Hospital Course Robert Hurley is [...] them today. They are giving advice via phone/[place] chat -DAPT (Plavix and ASA-81) and Heparin [...] Cardiology Gonzalo Velazquez MD Internal Medicine-Pediatrics, PGY-1 [facility] Cosigned by Cary Restrepo MD at 02/07/2023 [...] Edited by: Jake Saunders MD at 02/03/2023 1810 Subjective Pt is breathing well, no fevers [...] Making. Gonzalo Velazquez MD Internal Medicine-Pediatrics, PGY-1 [facility] Cosigned by Cary Restrepo MD at 02/04/2023 [...] 02/03/23194902/03/23199902/03/230 Event/Notification Description Event Location -- -- [place] Department and Room Number -- -- 214 [...] -- -- Onset and Notification Specifics Time SIGNAL INTELLIGENCE ANALYST RN Notified -- -- 2129 Time SIGNAL INTELLIGENCE ANALYST RN Arrived -- -- -- Monitoring Data [...] -- -- Onset and Notification Specifics Time SIGNAL INTELLIGENCE ANALYST RN Notified -- -- Time SIGNAL INTELLIGENCE ANALYST RN Arrived 2139 -- Monitoring Data For Monitoring Data, See: Assessment flowsheet;I/O flowsheet -- Rapid Response Outcome Rapid Response Termination Due to Patient remained on floor -- Provider Notification Shift Event Rapid response -- CODE STATUS: Full Code [place] Coma Scale Score: 15 Cardiac Rhythm: Normal sinus rhythm Deterioration Index Score: 38.49 (02/03/232215) Initiation: SIGNAL INTELLIGENCE ANALYST received page r/t concern noted. SIGNAL INTELLIGENCE ANALYST advised of pt with potential for deterioration. RN concern r/t acute respiratory distress, increased work of breathing, and volume overload. SIGNAL INTELLIGENCE ANALYST en route. Assessment: Upon arrival: Pt's baseline and trends reviewed via EMR. Upon review of pt chart, current patient status is consistent with trending baseline. VS are stable . Pt exhibits: on going hypertension, significant tachypnea, and increased WOB. Airway: Airway patent. With no obstruction noted. Pt is awake, alert, oriented, and anxious. Responding to verbal stimuli.. Breathing: Pt oxygen requirements: Upon SIGNAL INTELLIGENCE ANALYST arrival, pt maintaining adequate oxygen saturation on [...] Intervention: 4 mg bumetanide administered (prior to SIGNAL INTELLIGENCE ANALYST arrival). 10 mg metolazone given (prior to SIGNAL INTELLIGENCE ANALYST arrival). Pt educated (by SIGNAL INTELLIGENCE ANALYST) on importance of plan of care compliance (foremost positive pressure NIV). Pt verbalizes understanding significance of bipap and agrees to comply with MD order. SIGNAL INTELLIGENCE ANALYST proposed initiating fluid restriction with strict I&Os. Requested MD to also consider additional medication for pulmonary congestion and BP control r/t extensive cardiac hx . Reassessment: VS are stable. Outcome: No further orders at this time. Anjum Combs - Primary RN, denies any further need of assistance from SIGNAL INTELLIGENCE ANALYST at this time. VS stable upon SIGNAL INTELLIGENCE ANALYST departure. Pt will continue to be closely monitored. Primary RN agrees to notify SIGNAL INTELLIGENCE ANALYST and primaryprovider with any acute changes in status or further concerns. Follow up: No additional interventions warranted at this time. Will relay current pt status & concerns with oncoming SIGNAL INTELLIGENCE ANALYST team. Additional staff involvement: Anjum Combs - Primary RN Anjum Marin MD - Internal Medicine - Machine Heddle Cleaner Provider Hx: Robert Hurley is a 57 [...] , IGE , CEA , CA153 , UV450VS , CA125 , LABCA2 , HSTCAPSTUMID , [...] - 02/03/2023 9:55 PM EST Rapid response pulp mill team leader @ bedside assessing patient, no rapid has been called, SIGNAL INTELLIGENCE ANALYST was notified prior of poor patient condition [...] Combs RN - 02/03/2023 9:07 PM EST call person provider notified of O2 sats in high [...] and HTN who initially presented to the [facility] with a chief complaint of progressive shortness of breath. Cardiology is being consulted for evaluation and recommendations regarding CAD in the setting of elevated troponin. Mr. Hurley was recently evaluated in the [facility] for sudden onset shortness of breath. [...] to return home. He then returned to [facility] as shortness of breath returned. He [...] OF STENT N/A Cath Stent Placement from [facility] CHOLECYSTECTOMY N/A Cholecystectomy from [facility] Family History Reviewed and non-contributory. Social History [...] y.o. male who initially presented to the [facility] for acute hypoxic respiratory failure. Cardiology is [...] physician: Dr. Mitchell. Please page the on-call position clerk with any further questions. I spent 55 minutes performing the following components of the encounter (on the day of the encounter): reviewing History, examining the patient, reviewing imaging and/or labs, Independently interpreting echocardiogram, ECG and/or other imaging results, counseling the patient and family/caregiver, communicating with other health account executive healthcare, care coordination, and entering clinical information in the EHR. Greater than 50% of the time spent on the encounter was face to face providing direct patient care, counseling for the patient/caregiver, and care coordination. Juan Griffith MD Cardiovascular Disease Fellow, PGY-5 Pager: [phone] Cosigned by Darrin Mitchell MD at 02/05/2023 1:59 PM EST Associated attestation - Darrin Mitchell MD - 02/05/2023 1:59 PM EST I saw and evaluated the patient with the resident/fellow. I discussed the case with the resident/fellow and agree with the findings and plan as documented. * H&P - Gonzalo Velazquez MD - 02/03/2023 12:19 PM ESTAssociated Order(s): Consult to [facility] Images from the original note were not included. Consult to [facility] Consult performed by: Rosaline Ovalles Consult ordered by: Niko Rodriguez MD [facility] Medicine History & Physical Subjective 02/03/2023 Chief [...] OF STENT N/A Cath Stent Placement from [facility] CHOLECYSTECTOMY N/A Cholecystectomy from [facility] I have reviewed this patient's past surgical [...] Making. Gonzalo Velazquez MD Internal Medicine-Pediatrics, PGY-1 [facility] Cosigned by Cary Restrepo MD at 02/07/2023 3:37 PM EST Associated attestation - Cary Restrepo MD - 02/07/2023 3:37 PM EST I saw and evaluated the patient with the medical student and resident/fellow. I discussed the case with the medical student and resident/fellow and agree with the findings and plan as documented and participated in the medical decision making. * Consults - Gonzalo Fairchild APRN - 02/03/2023 8:51 AM ESTAssociated Order(s): Consult to MICU Consult to MICU Consult performed by: Gonzalo Fairchild APRN Consult ordered by: Niko Rodriguez MD Reason for consult: acute hypoxic respiratory failure Chief Complaint Chief Complaint Patient presents with Shortness of Breath History Of Present Illness Robert Hurley is a 57 yoM with PMH COPD, HTN, HFrEF, T2DM, HLD, CAD s/p stents, ID, CAMACHO cirrhosis, depression, and left AKA who presented to [facility] this morning for shortness of breath [...] and alert on 40%, 12/6 bipap with [id number]% on pc maintenance technician. HR 90, BP 120's/70. He states he [...] HTN, HFrEF, T2DM, HLD, CAD s/p stents, ID, CAMACHO cirrhosis, depression, and left AKA who presented to [facility] this morning for shortness of breath [...] details. * ED Provider Notes - Robby Hiarston DO - 02/03/2023 6:29 AM EST Images [...] OF STENT N/A Cath Stent Placement from [facility] CHOLECYSTECTOMY N/A Cholecystectomy from [facility] Family History Problem Relation Name Age of [...] Description 03/07/2024 1:40 PM EST Office Visit [facility] [place] [address], [address] [place] [address] Naeem Blunt MD [address] [place] [phone] Scheduled Referrals Name Type Priority Associated [...] ECG ADULT STAT 02/03/2023 6:42 AM EST [facility] ED POCUS PROCDOC Routine 02/03/2023 6:29 [...] for testing. Comment 02/12/2023 8:26 AM EST [facility] Pack Out Operator ID Ashley Rodriguez 8:26 AM EST [facility] Device ID [id number] 02/12/2023 8:26 AM EST [facility] Specimen Type POC Capillary 02/12/2023 8:26 AM EST [facility] Blood Capillary blood specimen / Unknown 02/12/2023 8:25 AM EST 02/12/2023 8:26 AM EST us Harlan Ricketts MD LAB POINT OF CARE TE ST DOCKED DEVICE UNSOLICITED RESULTS Final Result Performing Organization Address City/[facility]/ZIP Co de Phone Number [facility]ARE [facility] [address] [place] [address] * (ABNORMAL) N-Terminal Probnp (02/12/2023 4:45 AM EST) Pathologist [facility] [place] N-Terminal, PROBNP, Plasma 30,350(H) 0 - 899 pg/mL 02/12/2023 8:37 AM EST [facility] Blood Venous blood specimen / Unknown Venipuncture / Unknown 02/12/2023 4:45 AM EST 02/12/2023 5:10 AM EST us Harlan Ricketts MD LAB BLOOD ORDERABLES Final Resu lt [facility] [address] [place] [address] * Magnesium, Plasma (02/12/2023 4:45 AM EST) Pathologist [facility] [place] Magnesium, Plasma 2.2 1.9 - 2.4 mg/dL 02/12/2023 5:42 AM EST [facility] Blood Venous blood specimen / Unknown Venipuncture / Unknown 02/12/2023 4:45 AM EST 02/12/2023 5:10 AM EST us Harlan Ricketts MD LAB BLOOD ORDERABLES Final Resu lt [facility] [address] [place] [address] * (ABNORMAL) Comprehensive Metabolic Panel, Plasma (02/12/2023 4:45 AM EST) Glucose, Plasma 99 74 - 99 mg/dL 02/12/2023 5:42 AM EST [facility] BUN, Plasma 59(H) 7 - 21 mg/dL 02/12/2023 5:42 AM EST [facility] Creatinine, Plasma 3.28(H) 0.80 - 1.30 mg/dL 02/12/2023 5:42 AM EST [facility] BUN/Creatinine Ratio 18 02/12/2023 5:42 AM EST [facility] Sodium, Plasma 143 136 - 145 mmol/L 02/12/2023 5:42 AM EST [facility] Potassium, Plasma 4.4 3.7 - 4.8 mmol/L 02/12/2023 5:42 AM EST [facility] Chloride, Plasma 109(H) 97 - 107 mmol/L 02/12/2023 5:42 AM EST [facility] CO2, Plasma 23 22 - 29 mmol/L 02/12/2023 5:42 AM EST [facility] Anion Gap 11 6 - 16 mmol/L 02/12/2023 5:42 AM EST [facility] Total Calcium, Plasma 9.1 8.9 - 10.2 mg/dL 02/12/2023 5:42 AM EST [facility] Total Protein 6.1(L) 6.3 - 7.9 g/dL 02/12/2023 5:42 AM EST [facility] Albumin, Plasma 3.3(L) 3.5 - 5.2 g/dL 02/12/2023 5:42 AM EST [facility] AST, Plasma 41 10 - 50 U/L 02/12/2023 5:42 AM EST [facility] ALT, Plasma 21 10 - 50 U/L 02/12/2023 5:42 AM EST [facility] Alkaline Phosphatase, Plasma 156(H) 40 - 115 U/L 02/12/2023 5:42 AM EST [facility] Total Bilirubin, Plasma 0.8 0.2 - 1.1 mg/dL 02/12/2023 5:42 AM EST [facility] eGFRcr 21.4 mL/min/1.7 3m*2 02/12/2023 5:42 AM EST [facility] Comment:Reported eGFRcr in m L/min/1.73m2 is based the CKD-EPI 2020 equation that does not use a race coefficient. Blood Venous blood specimen / Unknown Venipuncture / Unknown 02/12/2023 4:45 AM EST 02/12/2023 5:10 AM EST us Harlan Ricketts MD LAB BLOOD ORDERABLES Final Resu lt Performing Organization Address City/State/[facility] Co de Phone Number [facility] [address] [place] [address] * (ABNORMAL) CBC and Differential (02/12/2023 4:45 AM EST) WBC Count 5.20 3.70 - 10.30 10*3/uL LAB HEMATOLOGY METHOD 02/12/2023 6:03 AM EST [facility] RBC Count 3.86(L) 4.60 - 6.10 10*6/uL LAB HEMATOLOGY METHOD 02/12/2023 6:03 AM EST [facility] HGB 11.0(L) 13.7 - 17.5 g/dL LAB HEMATOLOGY METHOD 02/12/2023 6:03 AM EST [facility] HCT 34.2(L) 40.0 - 51.0 % LAB HEMATOLOGY METHOD 02/12/2023 6:03 AM EST [facility] Platelet Count 215 155 - 369 10*3/uL LAB HEMATOLOGY METHOD 02/12/2023 6:03 AM EST [facility] MCV 89 79 - 98 fL LAB HEMATOLOGY METHOD 02/12/2023 6:03 AM EST [facility] MCH 28.5 26.0 - 32.0 pg LAB HEMATOLOGY METHOD 02/12/2023 6:03 AM EST [facility] MCHC 32.2 30.7 - 35.5 g/dL LAB HEMATOLOGY METHOD 02/12/2023 6:03 AM EST [facility] RDW 13.6 11.5 - 14.5 % LAB HEMATOLOGY METHOD 02/12/2023 6:03 AM EST [facility] MPV 11.2 8.8 - 12.5 fL LAB HEMATOLOGY METHOD 02/12/2023 6:03 AM EST [facility] nRBC 0.0 <=0.0 per 100 WBCs LAB HEMATOLOGY METHOD 02/12/2023 6:03 AM EST [facility] Differential Type Automated LAB HEMATOLOGY METHOD 02/12/2023 6:03 AM EST [facility] Neutrophils % 55.0 % LAB HEMATOLOGY METHOD 02/12/2023 6:03 AM EST [facility] Lymphocytes % 32.0 % LAB HEMATOLOGY METHOD 02/12/2023 6:03 AM EST [facility] Monocytes % 11.0 % LAB HEMATOLOGY METHOD 02/12/2023 6:03 AM EST [facility] Eosinophils % 1.0 % LAB HEMATOLOGY METHOD 02/12/2023 6:03 AM EST [facility] Basophils % 0.0 % LAB HEMATOLOGY METHOD 02/12/2023 6:03 AM [facility] Immature Granulocytes % 1.0 % LAB HEMATOLOGY METHOD 02/12/2023 6:03 AM EST [facility] Neutrophils Absolute 2.85 1.60 - 6.10 10*3/uL LAB HEMATOLOGY METHOD 02/12/2023 6:03 AM EST [facility] Lymphocytes Absolute 1.68 1.20 - 3.90 10*3/uL LAB HEMATOLOGY METHOD 02/12/2023 6:03 AM EST [facility] Monocytes Absolute 0.55 0.30 - 0.90 10*3/uL LAB HEMATOLOGY METHOD 02/12/2023 6:03 AM EST [facility] Eosinophils Absolute 0.07 0.00 - 0.50 10*3/uL LAB HEMATOLOGY METHOD 02/12/2023 6:03 AM EST [facility] Basophils Absolute 0.02 0.00 - 0.10 10*3/uL LAB HEMATOLOGY METHOD 02/12/2023 6:03 AM [facility] Immature Granulocytes Absolute 0.03 0.00 - 0.06 10*3/uL LAB HEMATOLOGY METHOD 02/12/2023 6:03 AM EST [facility] Blood Venous blood specimen / Unknown Venipuncture / Unknown 02/12/2023 4:45 AM EST 02/12/2023 5:13 AM EST Narrative [facility] - 02/12/2023 6:03 AM EST Therapeutic decision making should be based on absolute values, rather than percentages. us Harlan Ricketts MD LAB BLOOD ORDERABLES Final Resu lt Performing Organization Address [facility] Co de Phone Number [facility] [address] [place] [address] * (ABNORMAL) POCT glucose meter (02/11/2023 7:28 [...] for testing. Comment 02/11/2023 8:08 PM EST [facility] Pack Out Operator ID Khari Hong 02/11/2023 8:08 PM EST [facility] Device ID [id number] 02/11/2023 8:08 PM EST [facility] Specimen Type POC Capillary 02/11/2023 8:08 PM EST [facility] Blood Capillary blood specimen / Unknown 02/11/2023 7:28 PM EST 02/11/2023 8:08 PM EST us Harlan Ricketts MD LAB POINT OF CARE TE ST DOCKED DEVICE UNSOLICITED RESULTS Final Result Performing Organization Address [facility] Co de Phone Number [facility] [address] [place] [address] * (ABNORMAL) POCT glucose meter (02/11/2023 3:06 [...] 02/11/2023 3:07 PM EST [facility] Pack Out Operator ID Vikram Ott 02/11/2023 3:07 PM EST [facility] Device ID [id number] 02/11/2023 3:07 PM EST [facility] Specimen Type POC Capillary 02/11/2023 3:07 PM EST [facility] Blood Capillary blood specimen / Unknown 02/11/2023 3:06 PM EST 02/11/2023 3:07 PM EST us Harlan Ricketts MD LAB POINT OF CARE TE ST DOCKED DEVICE UNSOLICITED RESULTS Final Result Performing Organization Address City/[facility] Co de Phone Number [facility] [address] [place] [address] * (ABNORMAL) POCT glucose meter (02/11/2023 11:19 AM EST) [facility] POCT Glucose 111(H) 74 - 99 mg/dL [...] 02/11/2023 11:20 AM EST [facility] Pack Out Operator ID Vikram Ott 02/11/2023 11:20 AM EST [facility] Device ID [id number] 02/11/2023 11:20 AM EST [facility] Specimen Type POC Capillary 02/11/2023 11:20 AM EST [facility] Blood Capillary blood specimen / Unknown 02/11/2023 11:19 AM EST 02/11/2023 11:20 AM EST us Harlan Ricketts MD LAB POINT OF CARE TE ST DOCKED DEVICE UNSOLICITED RESULTS Final Result Performing Organization Address City/[facility]/ZIP Co de Phone Number [facility] [address] [place] [address] * (ABNORMAL) POCT glucose meter (02/11/2023 7:26 AM EST) [facility] POCT Glucose 127(H) 74 - 99 mg/dL [...] Comment 02/11/2023 7:28 AM EST [facility]ARE [facility] Pack Out Operator ID Vikram Ott 02/11/2023 7:28 AM EST [facility] Device ID [id number] 02/11/2023 7:28 AM EST [facility] Specimen Type POC Capillary 02/11/2023 7:28 AM EST [facility] Blood Capillary blood specimen / Unknown 02/11/2023 7:26 AM EST 02/11/2023 7:28 AM EST us Harlan Ricketts MD LAB POINT OF CARE TE ST DOCKED DEVICE UNSOLICITED RESULTS Final Result [facility] [address] [place] [address] * Magnesium, Plasma (02/11/2023 3:39 AM EST) [facility] Magnesium, Plasma 2.3 1.9 - 2.4 mg/dL 02/11/2023 4:20 AM EST [facility] Blood Venous blood specimen / Unknown Venipuncture / Unknown 02/11/2023 3:39 AM EST 02/11/2023 3:49 AM EST us Harlan Ricketts MD LAB BLOOD ORDERABLES Final Resu lt [facility] [address] [place] [address] * (ABNORMAL) CBC and Differential (02/11/2023 3:39 AM EST) [facility] WBC Count 5.96 3.70 - 10.30 10*3/uL LAB HEMATOLOGY METHOD 02/11/2023 3:59 AM EST [facility] RBC Count 4.08(L) 4.60 - 6.10 10*6/uL LAB HEMATOLOGY METHOD 02/11/2023 3:59 AM EST [facility] HGB 11.9(L) 13.7 - 17.5 g/dL LAB HEMATOLOGY METHOD 02/11/2023 3:59 AM EST [facility] HCT 36.3(L) 40.0 - 51.0 % LAB HEMATOLOGY METHOD 02/11/2023 3:59 AM EST [facility] Platelet Count 247 155 - 369 10*3/uL LAB HEMATOLOGY METHOD 02/11/2023 3:59 AM EST [facility] MCV 89 79 - 98 fL LAB HEMATOLOGY METHOD 02/11/2023 3:59 AM EST [facility] MCH 29.2 26.0 - 32.0 pg LAB HEMATOLOGY METHOD 02/11/2023 3:59 AM EST [facility] MCHC 32.8 30.7 - 35.5 g/dL LAB HEMATOLOGY METHOD 02/11/2023 3:59 AM EST [facility] RDW 13.5 11.5 - 14.5 % LAB HEMATOLOGY METHOD 02/11/2023 3:59 AM EST [facility] MPV 11.1 8.8 - 12.5 fL LAB HEMATOLOGY METHOD 02/11/2023 3:59 AM EST [facility] nRBC 0.0 <=0.0 per 100 WBCs LAB HEMATOLOGY METHOD 02/11/2023 3:59 AM EST [facility] Differential Type Automated LAB HEMATOLOGY METHOD 02/11/2023 3:59 AM EST [facility] Neutrophils % 55.0 % LAB HEMATOLOGY METHOD 02/11/2023 3:59 AM EST [facility] Lymphocytes % 31.0 % LAB HEMATOLOGY METHOD 02/11/2023 3:59 AM EST [facility] Monocytes % 11.0 % LAB HEMATOLOGY METHOD 02/11/2023 3:59 AM EST [facility] Eosinophils % 2.0 % LAB HEMATOLOGY METHOD 02/11/2023 3:59 AM EST [facility] Basophils % 0.0 % LAB HEMATOLOGY METHOD 02/11/2023 3:59 AM EST [facility] Immature Granulocytes % 1.0 % LAB HEMATOLOGY METHOD 02/11/2023 3:59 AM EST [facility] Neutrophils Absolute 3.32 1.60 - 6.10 10*3/uL LAB HEMATOLOGY METHOD 02/11/2023 3:59 AM EST [facility] Lymphocytes Absolute 1.85 1.20 - [...] LAB HEMATOLOGY METHOD 02/11/2023 3:59 AM EST [facility] Immature Granulocytes Absolute 0.03 0.00 - [...] LAB BLOOD ORDERABLES Final Resu lt [facility] [address] [place] [id number] * (ABNORMAL) Comprehensive Metabolic Panel, Plasma (02/11/2023 3:39 AM EST) Glucose, Plasma 156(H) 74 - 99 mg/dL 02/11/2023 4:20 AM EST [facility] BUN, Plasma 59(H) 7 - 21 mg/dL 02/11/2023 4:20 AM EST [facility] Creatinine, Plasma 3.19(H) 0.80 - 1.30 mg/dL 02/11/2023 4:20 AM EST [facility] BUN/Creatinine Ratio 18 02/11/2023 4:20 AM EST [facility] Sodium, Plasma 142 136 - 145 mmol/L 02/11/2023 4:20 AM EST [facility] Potassium, Plasma 4.5 3.7 - 4.8 mmol/L 02/11/2023 4:20 AM EST [facility] Chloride, Plasma 105 97 - 107 mmol/L 02/11/2023 4:20 AM EST [facility] CO2, Plasma 23 22 - 29 mmol/L 02/11/2023 4:20 AM EST [facility] Anion Gap 14 6 - 16 mmol/L 02/11/2023 4:20 AM EST [facility] Total Calcium, Plasma 9.1 8.9 - 10.2 mg/dL 02/11/2023 4:20 AM EST [facility] Total Protein 6.6 6.3 - 7.9 g/dL 02/11/2023 4:20 AM EST [facility] Albumin, Plasma 3.5 3.5 - 5.2 g/dL 02/11/2023 4:20 AM EST [facility] AST, Plasma 47 10 - 50 U/L 02/11/2023 4:20 AM EST [facility] ALT, Plasma 26 10 - 50 U/L 02/11/2023 4:20 AM EST [facility] Alkaline Phosphatase, Plasma 159(H) 40 - 115 U/L 02/11/2023 4:20 AM EST [facility] Total Bilirubin, Plasma 0.7 0.2 - 1.1 mg/dL 02/11/2023 4:20 AM [facility] eGFRcr 22.1 mL/min/1.7 3m*2 02/11/2023 4:20 AM [facility] Comment:Reported eGFRcr in m L/min/1.73m2 is based the CKD-EPI 2020 equation that does not use a race coefficient. Blood Venous blood specimen / Unknown Venipuncture / Unknown 02/11/2023 3:39 AM EST 02/11/2023 3:49 AM EST us Harlan Ricketts MD LAB BLOOD ORDERABLES Final Resu lt [facility] [address] [place] [address] * (ABNORMAL) POCT glucose meter (02/10/2023 9:00 PM EST) POCT Glucose 183(H) 74 - 99 mg/dL 02/10/2023 9:09 PM EST [facility] Comment:Accuracy of a glucos e [...] Comment 02/10/2023 9:09 PM EST [facility]ALTH[facility] Pack Out Operator ID Khari Hong 02/10/2023 9:09 PM EST [facility] Device ID [id number] 02/10/2023 9:09 PM EST [facility] Specimen Type POC Capillary 02/10/2023 9:09 PM EST [facility] Blood Capillary blood specimen / Unknown 02/10/2023 9:00 PM EST 02/10/2023 9:09 PM EST us Harlan Ricketts MD LAB POINT OF CARE TE ST DOCKED DEVICE UNSOLICITED RESULTS Final Result Performing Organization Address City/State/[facility] de Phone Number [facility] [address] [place] [address] * (ABNORMAL) POCT glucose meter (02/10/2023 6:05 PM EST) [facility] Signature POCT Glucose 151(H) 74 - 99 mg/dL 02/10/2023 6:07 PM EST [facility] Comment:Accuracy of a glucos e result [...] Comment 02/10/2023 6:07 PM EST [facility] Pack Out Operator ID Vikram Ott 02/10/2023 6:07 PM EST [facility] Device ID [id number] 02/10/2023 6:07 PM EST [facility] Specimen Type POC Capillary 02/10/2023 6:07 PM EST [facility] Blood Capillary blood specimen / Unknown 02/10/2023 6:05 PM EST 02/10/2023 6:07 PM EST us Harlan Ricketts MD LAB POINT OF CARE TE ST DOCKED DEVICE UNSOLICITED RESULTS Final Result Performing Organization Address City/[facility] Co de Phone Number [facility] [address] [place] [address] * (ABNORMAL) POCT glucose meter (02/10/2023 5:41 PM EST) [facility] POCT Glucose 115(H) 74 - 99 mg/dL [...] for testing. Comment 02/10/2023 5:42 PM EST [facility] Pack Out Operator ID Alma Faulkner 023 5:42 PM EST [facility] Device ID [id number] 02/10/2023 5:42 PM EST [facility] Specimen Type POC Capillary 02/10/2023 5:42 PM EST [facility] Blood Capillary blood specimen / Unknown 02/10/2023 5:41 PM EST 02/10/2023 5:42 PM EST Harlan Ricketts MD LAB POINT OF CARE TE ST DOCKED DEVICE UNSOLICITED RESULTS Final Result Performing Organization Address City/[facility] Co de Phone Number [facility] [address] [place] [address] * ECHO, ADULT TRANSESOPHAGEAL COMPLETE W/ 3D (02/10/2023 3:28 PM EST) Pathologist [facility] [place] BSA 2.07 m2 WILLIAM ISCV SBP 115 [...] is no recent study available for direct [id number] comparison. ?? Left Ventricle The left ventricle [...] captured. The probe was inserted by the research environmental engineer. There was no probe insertion difficulty. Moderate sedation was given. Sedation was performed by cardiology.Lidocaine was administered during the study. Heart Rate: 74 bpm. BSA: 2.07 m2. There were no complications during the procedure. Study Recommendation There is no recent study available for direct [id number] comparison. us Darrin Mitchell MD CV ECHO PROCEDURES Final Resul t * POCT glucose meter (02/10/2023 8:51 AM EST) POCT Glucose 91 74 - 99 mg/dL 02/10/2023 8:54 AM EST [facility] Comment:Accuracy of a glucos e result [...] 02/10/2023 8:54 AM EST [facility] Pack Out Operator ID Geno Cash 02/10/2023 8:54 AM EST [facility] Device ID [id number] 02/10/2023 8:54 AM EST [facility] Specimen Type POC Capillary 02/10/2023 8:54 AM EST [facility] Blood Capillary blood specimen / Unknown 02/10/2023 8:51 AM EST 02/10/2023 8:54 AM EST us Harlan Ricketts MD LAB POINT OF CARE TE ST DOCKED DEVICE UNSOLICITED RESULTS Final Result Performing Organization Address City/[facility] Co de Phone Number [facility] [address] [place] [address] * Magnesium (02/10/2023 5:02 AM EST) Pathologist [facility] [place] Magnesium, Plasma 2.4 1.9 - 2.4 mg/dL 02/10/2023 5:51 AM EST [facility] Blood Venous blood specimen / Unknown Venipuncture / Unknown 02/10/2023 5:02 AM EST 02/10/2023 5:21 AM EST us Darrin Mitchell MD LAB BLOOD ORDERABLES Final Res ult Performing Organization Address City/[facility] Co de Phone Number [facility] [address] [place] [address] * (ABNORMAL) Comprehensive metabolic panel (02/10/2023 5:02 AM EST) Glucose, Plasma 86 74 - 99 mg/dL 02/10/2023 5:51 AM EST [facility] BUN, Plasma 64(H) 7 - 21 mg/dL 02/10/2023 5:51 AM EST [facility] Creatinine, Plasma 3.02(H) 0.80 - 1.30 mg/dL 02/10/2023 5:51 AM EST [facility] BUN/Creatinine Ratio 21 02/10/2023 5:51 AM EST [facility] Sodium, Plasma 142 136 - 145 mmol/L 02/10/2023 5:51 AM EST [facility] Potassium, Plasma 4.4 3.7 - 4.8 mmol/L 02/10/2023 5:51 AM EST [facility] Chloride, Plasma 107 97 - 107 mmol/L 02/10/2023 5:51 AM EST [facility] CO2, Plasma 27 22 - 29 mmol/L 02/10/2023 5:51 AM EST [facility] Anion Gap 8 6 - 16 mmol/L 02/10/2023 5:51 AM EST [facility] Total Calcium, Plasma 8.8(L) 8.9 - 10.2 mg/dL 02/10/2023 5:51 AM EST [facility] Total Protein 5.9(L) 6.3 - 7.9 g/dL 02/10/2023 5:51 AM EST [facility] Albumin, Plasma 3.3(L) 3.5 - 5.2 g/dL 02/10/2023 5:51 AM EST [facility] AST, Plasma 44 10 - 50 U/L 02/10/2023 5:51 AM EST [facility] ALT, Plasma 28 10 - 50 U/L 02/10/2023 5:51 AM EST [facility] Alkaline Phosphatase, Plasma 157(H) 40 - 115 U/L 02/10/2023 5:51 AM EST [facility] Total Bilirubin, Plasma 0.6 0.2 - 1.1 mg/dL 02/10/2023 5:51 AM EST [facility] eGFRcr 23.6 mL/min/1.7 3m*2 02/10/2023 5:51 AM EST [facility] Comment:Reported eGFRcr in m L/min/1.73m2 is based the CKD-EPI 2020 equation that does not use a race coefficient. Blood Venous blood specimen / Unknown Venipuncture / Unknown 02/10/2023 5:02 AM EST 02/10/2023 5:21 AM EST us Darrin Mitchell MD LAB BLOOD ORDERABLES Final Res ult [facility] [address] [place] [address] * (ABNORMAL) CBC W/O Differential (02/10/2023 5:02 AM EST) WBC Count 4.96 3.70 - 10.30 10*3/uL LAB HEMATOLOGY METHOD 02/10/2023 5:34 AM EST [facility] RBC Count 3.81(L) 4.60 - 6.10 10*6/uL LAB HEMATOLOGY METHOD 02/10/2023 5:34 AM EST [facility] HGB 10.9(L) 13.7 - 17.5 g/dL LAB HEMATOLOGY METHOD 02/10/2023 5:34 AM EST [facility] HCT 33.4(L) 40.0 - 51.0 % LAB HEMATOLOGY METHOD 02/10/2023 5:34 AM EST [facility] Platelet Count 203 155 - 369 10*3/uL LAB HEMATOLOGY METHOD 02/10/2023 5:34 AM EST [facility] MCV 88 79 - 98 fL LAB HEMATOLOGY METHOD 02/10/2023 5:34 AM EST [facility] MCH 28.6 26.0 - 32.0 pg LAB HEMATOLOGY METHOD 02/10/2023 5:34 AM EST [facility] MCHC 32.6 30.7 - 35.5 g/dL LAB HEMATOLOGY METHOD 02/10/2023 5:34 AM EST [facility] RDW 13.5 11.5 - 14.5 % LAB HEMATOLOGY METHOD 02/10/2023 5:34 AM EST [facility] MPV 11.4 8.8 - 12.5 fL LAB HEMATOLOGY METHOD 02/10/2023 5:34 AM EST [facility] nRBC 0.0 <=0.0 per 100 WBCs LAB HEMATOLOGY METHOD 02/10/2023 5:34 AM EST [facility] Blood Venous blood specimen / Unknown Venipuncture / Unknown 02/10/2023 5:02 AM EST 02/10/2023 5:24 AM EST us Darrin Mitchell MD LAB BLOOD ORDERABLES Final Res ult [facility] [address] [place] [address] * (ABNORMAL) POCT glucose meter (02/09/2023 8:17 PM EST) [facility] POCT Glucose 213(H) 74 - 99 mg/dL [...] 02/09/2023 8:19 PM EST [facility] Pack Out Operator ID Lia Nelson 02/09/2023 8:19 PM EST [facility] Device ID [id number] 02/09/2023 8:19 PM EST [facility] Specimen Type POC Capillary 02/09/2023 8:19 PM EST [facility] Blood Capillary blood specimen / Unknown 02/09/2023 8:17 PM EST 02/09/2023 8:19 PM EST us Darrin Mitchell MD LAB POINT OF CARE TE ST DOCKED DEVICE UNSOLICITED RESULTS Final Result Performing Organization Address [facility] de Phone Number [facility] [address] [place] [address] * (ABNORMAL) POCT glucose meter (02/09/2023 5:56 PM EST) [facility] POCT Glucose 118(H) 74 - 99 mg/dL [...] 02/09/2023 5:59 PM EST [facility] Pack Out Operator ID Uzma Joel 023 5:59 PM EST [facility] Device ID [id number] 02/09/2023 5:59 PM EST [facility] Specimen Type POC Capillary 02/09/2023 5:59 PM EST [facility] Blood Capillary blood specimen / Unknown 02/09/2023 5:56 PM EST 02/09/2023 5:59 PM EST us Darrin Mitchell MD LAB POINT OF CARE TE ST DOCKED DEVICE UNSOLICITED RESULTS Final Result Performing Organization Address City/[facility]/ZIP Co de Phone Number [facility] [address] [place] [address] * (ABNORMAL) POCT glucose meter (02/09/2023 1:07 PM EST) [facility] POCT Glucose 218(H) 74 - 99 mg/dL [...] for testing. Comment 02/09/2023 1:34 PM EST [facility] Pack Out Operator ID Uzma Joel 023 1:34 PM EST [facility] Device ID [id number] 02/09/2023 1:34 PM EST [facility] Specimen Type POC Capillary 02/09/2023 1:34 PM EST [facility] Blood Capillary blood specimen / Unknown 02/09/2023 1:07 PM EST 02/09/2023 1:34 PM EST Darrin Mitchell MD LAB POINT OF CARE TE ST DOCKED DEVICE UNSOLICITED RESULTS Final Result [facility] [address] [place] [address] * (ABNORMAL) POCT glucose meter (02/09/2023 8:58 AM EST) [facility] POCT Glucose 122(H) 74 - 99 mg/dL 02/09/2023 9:00 AM EST [facility] Comment:Accuracy of a glucos e result [...] 02/09/2023 9:00 AM EST [facility] Pack Out Operator ID Jake Saunders 9:00 AM EST [facility] Device ID [id number] 02/09/2023 9:00 AM EST [facility] Specimen Type POC Capillary 02/09/2023 9:00 AM EST [facility] Blood Capillary blood specimen / Unknown 02/09/2023 8:58 AM EST 02/09/2023 9:00 AM EST us aDrrin Mitchell MD LAB POINT OF CARE TE ST DOCKED DEVICE UNSOLICITED RESULTS Final Result Performing Organization Address [facility] Co de Phone Number [facility] [address] [place] [address] * Magnesium, Plasma (02/09/2023 5:18 AM EST) Magnesium, Plasma 2.1 1.9 - 2.4 mg/dL 02/09/2023 5:58 AM EST [facility] Blood Venous blood specimen / Unknown Venipuncture / Unknown 02/09/2023 5:18 AM EST 02/09/2023 5:30 AM EST us Darrin Mitchell MD LAB BLOOD ORDERABLES Final Res ult Performing Organization Address [facility] Co de Phone Number [facility] [address] [place] [address] * (ABNORMAL) Comprehensive Metabolic Panel, Plasma (02/09/2023 5:18 AM EST) Glucose, Plasma 102(H) 74 - 99 mg/dL 02/09/2023 5:58 AM EST [facility] BUN, Plasma 74(H) 7 - 21 mg/dL 02/09/2023 5:58 AM EST [facility] Creatinine, Plasma 3.15(H) 0.80 - 1.30 mg/dL 02/09/2023 5:58 AM EST [facility] BUN/Creatinine Ratio 23 02/09/2023 5:58 AM EST [facility] Sodium, Plasma 141 136 - 145 mmol/L 02/09/2023 5:58 AM EST [facility] Potassium, Plasma 4.3 3.7 - 4.8 mmol/L 02/09/2023 5:58 AM EST [facility] Chloride, Plasma 105 97 - 107 mmol/L 02/09/2023 5:58 AM EST [facility] CO2, Plasma 26 22 - 29 mmol/L 02/09/2023 5:58 AM EST [facility] Anion Gap 10 6 - 16 mmol/L 02/09/2023 5:58 AM EST [facility] Total Calcium, Plasma 8.4(L) 8.9 - 10.2 mg/dL 02/09/2023 5:58 AM EST [facility] Total Protein 5.8(L) 6.3 - 7.9 g/dL 02/09/2023 5:58 AM EST [facility] Albumin, Plasma 3.3(L) 3.5 - 5.2 g/dL 02/09/2023 5:58 AM EST [facility] AST, Plasma 51(H) 10 - 50 U/L 02/09/2023 5:58 AM EST [facility] ALT, Plasma 32 10 - 50 U/L 02/09/2023 5:58 AM EST [facility] Alkaline Phosphatase, Plasma 160(H) 40 - 115 U/L 02/09/2023 5:58 AM EST [facility] Total Bilirubin, Plasma 0.4 0.2 - 1.1 mg/dL 02/09/2023 5:58 AM EST [facility] eGFRcr 22.4 mL/min/1.7 3m*2 02/09/2023 5:58 AM EST [facility] Comment:Reported eGFRcr in m L/min/1.73m2 is based the CKD-EPI 2020 equation that does not use a race coefficient. Blood Venous blood specimen / Unknown Venipuncture / Unknown 02/09/2023 5:18 AM EST 02/09/2023 5:30 AM EST us Darrin Mitchell MD LAB BLOOD ORDERABLES Final Res ult [facility] [address] [place] [address] * (ABNORMAL) CBC and Differential (02/09/2023 5:18 AM EST) WBC Count 5.24 3.70 - 10.30 10*3/uL LAB HEMATOLOGY METHOD 02/09/2023 5:37 AM EST [facility] RBC Count 3.75(L) 4.60 - 6.10 10*6/uL LAB HEMATOLOGY METHOD 02/09/2023 5:37 AM EST [facility] HGB 10.8(L) 13.7 - 17.5 g/dL LAB HEMATOLOGY METHOD 02/09/2023 5:37 AM EST [facility] HCT 33.1(L) 40.0 - 51.0 % LAB HEMATOLOGY METHOD 02/09/2023 5:37 AM EST [facility] Platelet Count 194 155 - 369 10*3/uL LAB HEMATOLOGY METHOD 02/09/2023 5:37 AM EST [facility] MCV 88 79 - 98 fL LAB HEMATOLOGY METHOD 02/09/2023 5:37 AM EST [facility] MCH 28.8 26.0 - 32.0 pg LAB HEMATOLOGY METHOD 02/09/2023 5:37 AM EST [facility] MCHC 32.6 30.7 - 35.5 g/dL LAB HEMATOLOGY METHOD 02/09/2023 5:37 AM EST [facility] RDW 13.5 11.5 - 14.5 % LAB HEMATOLOGY METHOD 02/09/2023 5:37 AM EST [facility] MPV 10.9 8.8 - 12.5 fL LAB HEMATOLOGY METHOD 02/09/2023 5:37 AM EST [facility] nRBC 0.0 <=0.0 per 100 WBCs LAB HEMATOLOGY METHOD 02/09/2023 5:37 AM EST [facility] Differential Type Automated LAB HEMATOLOGY METHOD 02/09/2023 5:37 AM EST [facility] Neutrophils % 50.0 % LAB HEMATOLOGY METHOD 02/09/2023 5:37 AM EST [facility] Lymphocytes % 35.0 % LAB HEMATOLOGY METHOD 02/09/2023 5:37 AM EST [facility] Monocytes % 12.0 % LAB HEMATOLOGY METHOD 02/09/2023 5:37 AM EST [facility] Eosinophils % 3.0 % LAB HEMATOLOGY METHOD 02/09/2023 5:37 AM EST [facility] Basophils % 0.0 % LAB HEMATOLOGY METHOD 02/09/2023 5:37 AM EST [facility] Immature Granulocytes % 0.0 % LAB HEMATOLOGY METHOD 02/09/2023 5:37 AM EST [facility] Neutrophils Absolute 2.59 1.60 - 6.10 10*3/uL LAB HEMATOLOGY METHOD 02/09/2023 5:37 AM EST [facility] Lymphocytes Absolute 1.85 1.20 - 3.90 10*3/uL LAB HEMATOLOGY METHOD 02/09/2023 5:37 AM EST [facility] Monocytes Absolute 0.63 0.30 - 0.90 10*3/uL LAB HEMATOLOGY METHOD 02/09/2023 5:37 AM EST [facility] Eosinophils Absolute 0.13 0.00 - 0.50 10*3/uL LAB HEMATOLOGY METHOD 02/09/2023 5:37 AM EST [facility] Basophils Absolute 0.02 0.00 - 0.10 10*3/uL LAB HEMATOLOGY METHOD 02/09/2023 5:37 AM EST [facility] Immature Granulocytes Absolute 0.02 0.00 - 0.06 10*3/uL LAB HEMATOLOGY METHOD 02/09/2023 5:37 AM EST [facility] Blood Venous blood specimen / Unknown Venipuncture / Unknown 02/09/2023 5:18 AM EST 02/09/2023 5:30 AM EST Narrative [facility] - 02/09/2023 5:37 AM EST Therapeutic decision making should be based on absolute values, rather than percentages. Darrin Mitchell MD LAB BLOOD ORDERABLES Final Res ult [facility] [address] [place] [address] * (ABNORMAL) POCT glucose meter (02/08/2023 8:28 [...] 02/08/2023 8:39 PM EST [facility] Pack Out Operator ID Juliette Ochoa 02/08/2023 8:39 PM EST [facility] Device ID [id number] 02/08/2023 8:39 PM EST [facility] Specimen Type POC Capillary 02/08/2023 8:39 PM EST [facility] Blood Capillary blood specimen / Unknown 02/08/2023 8:28 PM EST 02/08/2023 8:39 PM EST us Darrin Mitchell MD LAB POINT OF CARE TE ST DOCKED DEVICE UNSOLICITED RESULTS Final Result Performing Organization Address [facility] de Phone Number [facility] [address] [place] [address] * (ABNORMAL) POCT glucose meter (02/08/2023 5:50 [...] Comment 02/08/2023 5:52 PM EST [facility] Pack Out Operator ID Fernanda Coto 02/09/20 5:52 PM EST [facility] Device ID [id number] 02/08/2023 5:52 PM EST [facility] Specimen Type POC Capillary 02/08/2023 5:52 PM EST [facility] Blood Capillary blood specimen / Unknown 02/08/2023 5:50 PM EST 02/08/2023 5:52 PM EST us Darrin Mitchell MD LAB POINT OF CARE TE ST DOCKED DEVICE UNSOLICITED RESULTS Final Result Performing Organization Address [facility] de Phone Number [facility] [address] [place] [address] * VAS US Renal Artery Duplex (02/08/2023 [...] POCT glucose meter (02/08/2023 12:26 PM EST) [facility] POCT Glucose 159(H) 74 - 99 mg/dL 02/08/2023 12:27 PM EST [facility] Comment:Accuracy of a glucos e result [...] for testing. Comment 02/08/2023 12:27 PM EST [facility] Pack Out Operator ID Fernanda Coto 02/09/20 12:27 PM EST [facility] Device ID [id number] 02/08/2023 12:27 PM EST [facility] Specimen Type POC Capillary 02/08/2023 12:27 PM EST [facility] Blood Capillary blood specimen / Unknown 02/08/2023 12:26 PM EST 02/08/2023 12:27 PM EST us Darrin Mitchell MD LAB POINT OF CARE TE ST DOCKED DEVICE UNSOLICITED RESULTS Final Result [facility] [address] [place] [address] * Protein, Random, Urine with Creatinine (02/08/2023 11:37 AM EST) [facility] Protein, Urine 201 mg/dL 02/08/2023 1:03 PM EST [facility] Creatinine, Urine 59 mg/dL 02/08/2023 1:03 PM EST [facility] Protein/Creati nine Ratio 3.4 mg/mg Creat 02/08/2023 1:03 PM EST [facility] Urine Urine specimen obtained by clean catch procedure / Unknown Non-blood Collection / Unknown 02/08/2023 11:37 AM EST 02/08/2023 12:04 PM EST Darrin Mitchell MD LAB URINE ORDERABLES Final Res ult Performing Organization Address [facility] de Phone Number [facility] [address] [place] [address] * Urea nitrogen, urine (02/08/2023 11:37 AM EST) Urea Nitrogen, Urine 631 mg/dL 02/08/2023 12:52 PM EST [facility] Urine Urine specimen obtained by clean catch procedure / Unknown Non-blood Collection / Unknown 02/08/2023 11:37 AM EST 02/08/2023 12:04 PM EST Darrin Mitchell MD LAB URINE ORDERABLES Final Res ult Performing Organization Address [facility] Phone Number [facility] [address] [place] [address] * POCT glucose meter (02/08/2023 9:48 AM EST) POCT Glucose 81 74 - 99 mg/dL 02/08/2023 9:49 AM EST [facility] Comment:Accuracy of a glucos e result [...] for testing. Comment 02/08/2023 9:49 AM EST [facility] Pack Out Operator ID Fernanda Coto 02/09/20 9:49 AM EST [facility] Device ID [id number] 02/08/2023 9:49 AM EST [facility] Specimen Type POC Capillary 02/08/2023 9:49 AM EST [facility] Blood Capillary blood specimen / Unknown 02/08/2023 9:48 AM EST 02/08/2023 9:49 AM EST Darrin Mitchell MD LAB POINT OF CARE TE ST DOCKED DEVICE UNSOLICITED RESULTS Final Result Performing Organization Address [facility] Co de Phone Number [facility] [address] [place] [address] * (ABNORMAL) POCT glucose meter (02/08/2023 9:06 AM EST) [facility] POCT Glucose 71(L) 74 - 99 mg/dL 02/08/2023 9:07 AM EST [facility] Comment:Accuracy of a glucos e result [...] for testing. Comment 02/08/2023 9:07 AM EST [facility] Pack Out Operator ID Tiara Maguire 02/08/2023 9:07 AM EST [facility] Device ID [id number] 02/08/2023 9:07 AM EST [facility] Specimen Type POC Capillary 02/08/2023 9:07 AM EST [facility] Blood Capillary blood specimen / Unknown 02/08/2023 9:06 AM EST 02/08/2023 9:07 AM EST Darrin Mitchell MD LAB POINT OF CARE TE ST DOCKED DEVICE UNSOLICITED RESULTS Final Result Performing Organization Address [facility] Co de Phone Number [facility] [address] [place] [address] * (ABNORMAL) Magnesium (02/08/2023 3:04 AM EST) Pathologist [facility] Magnesium, Plasma 2.5(H) 1.9 - 2.4 mg/dL 02/08/2023 3:43 AM EST [facility] Blood Venous blood specimen / Unknown Venipuncture / Unknown 02/08/2023 3:04 AM EST 02/08/2023 3:08 AM EST us Darrin Mitchell MD LAB BLOOD ORDERABLES Final Res ult [facility] [address] [place] [address] * (ABNORMAL) Comprehensive Metabolic Panel, Plasma (02/08/2023 3:04 AM EST) Glucose, Plasma 65(L) 74 - 99 mg/dL 02/08/2023 3:43 AM EST [facility] BUN, Plasma 90(H) 7 - 21 mg/dL 02/08/2023 3:43 AM EST [facility] Creatinine, Plasma 3.88(H) 0.80 - 1.30 mg/dL 02/08/2023 3:43 AM EST [facility] BUN/Creatinine Ratio 23 02/08/2023 3:43 AM EST [facility] Sodium, Plasma 143 136 - 145 mmol/L 02/08/2023 3:43 AM EST [facility] Potassium, Plasma 4.6 3.7 - 4.8 mmol/L 02/08/2023 3:43 AM EST [facility] Chloride, Plasma 103 97 - 107 mmol/L 02/08/2023 3:43 AM EST [facility] CO2, Plasma 29 22 - 29 mmol/L 02/08/2023 3:43 AM EST [facility] Anion Gap 11 6 - 16 mmol/L 02/08/2023 3:43 AM EST [facility] Total Calcium, Plasma 8.6(L) 8.9 - 10.2 mg/dL 02/08/2023 3:43 AM EST [facility] Total Protein 5.5(L) 6.3 - 7.9 g/dL 02/08/2023 3:43 AM EST [facility] Albumin, Plasma 2.9(L) 3.5 - 5.2 g/dL 02/08/2023 3:43 AM EST [facility] AST, Plasma 52(H) 10 - 50 U/L 02/08/2023 3:43 AM EST [facility] ALT, Plasma 30 10 - 50 U/L 02/08/2023 3:43 AM EST [facility] Alkaline Phosphatase, Plasma 139(H) 40 - 115 U/L 02/08/2023 3:43 AM EST [facility] Total Bilirubin, Plasma 0.3 0.2 - 1.1 mg/dL 02/08/2023 3:43 AM EST [facility] eGFRcr 17.5 mL/min/1.7 3m*2 02/08/2023 3:43 AM EST [facility] Comment:Reported eGFRcr in m L/min/1.73m2 is based the CKD-EPI 2020 equation that does not use a race coefficient. Blood Venous blood specimen / Unknown Venipuncture / Unknown 02/08/2023 3:04 AM EST 02/08/2023 3:08 AM EST us Darrin Mitchell MD LAB BLOOD ORDERABLES Final Res ult [facility] [address] [place] [id number] * (ABNORMAL) CBC and Differential (02/08/2023 3:04 AM EST) WBC Count 6.20 3.70 - 10.30 10*3/uL LAB HEMATOLOGY METHOD 02/08/2023 3:20 AM EST [facility] RBC Count 3.67(L) 4.60 - 6.10 10*6/uL LAB HEMATOLOGY METHOD 02/08/2023 3:20 AM EST [facility] HGB 10.3(L) 13.7 - 17.5 g/dL LAB HEMATOLOGY METHOD 02/08/2023 3:20 AM EST [facility] HCT 32.1(L) 40.0 - 51.0 % LAB HEMATOLOGY METHOD 02/08/2023 3:20 AM EST [facility] Platelet Count 202 155 - 369 10*3/uL LAB HEMATOLOGY METHOD 02/08/2023 3:20 AM EST [facility] MCV 88 79 - 98 fL LAB HEMATOLOGY METHOD 02/08/2023 3:20 AM EST [facility] MCH 28.1 26.0 - 32.0 pg LAB HEMATOLOGY METHOD 02/08/2023 3:20 AM EST [facility] MCHC 32.1 30.7 - 35.5 g/dL LAB HEMATOLOGY METHOD 02/08/2023 3:20 AM EST [facility] RDW 13.5 11.5 - 14.5 % LAB HEMATOLOGY METHOD 02/08/2023 3:20 AM EST [facility] MPV 11.3 8.8 - 12.5 fL LAB HEMATOLOGY METHOD 02/08/2023 3:20 AM EST [facility] nRBC 0.0 <=0.0 per 100 WBCs LAB HEMATOLOGY METHOD 02/08/2023 3:20 AM EST [facility] Differential Type Automated LAB HEMATOLOGY METHOD 02/08/2023 3:20 AM EST [facility] Neutrophils % 58.0 % LAB HEMATOLOGY METHOD 02/08/2023 3:20 AM EST [facility] Lymphocytes % 29.0 % LAB HEMATOLOGY METHOD 02/08/2023 3:20 AM EST [facility] Monocytes % 10.0 % LAB HEMATOLOGY METHOD 02/08/2023 3:20 AM EST [facility] Eosinophils % 3.0 % LAB HEMATOLOGY METHOD 02/08/2023 3:20 AM EST [facility] Basophils % 0.0 % LAB HEMATOLOGY METHOD 02/08/2023 3:20 AM EST [facility] Immature Granulocytes % 0.0 % LAB HEMATOLOGY METHOD 02/08/2023 3:20 AM EST [facility] Neutrophils Absolute 3.62 1.60 - 6.10 10*3/uL LAB HEMATOLOGY METHOD 02/08/2023 3:20 AM EST [facility] Lymphocytes Absolute 1.78 1.20 - 3.90 10*3/uL LAB HEMATOLOGY METHOD 02/08/2023 3:20 AM EST [facility] Monocytes Absolute 0.59 0.30 - 0.90 10*3/uL LAB HEMATOLOGY METHOD 02/08/2023 3:20 AM EST [facility] Eosinophils Absolute 0.18 0.00 - 0.50 10*3/uL LAB HEMATOLOGY METHOD 02/08/2023 3:20 AM EST [facility] Basophils Absolute 0.01 0.00 - 0.10 10*3/uL LAB HEMATOLOGY METHOD 02/08/2023 3:20 AM EST [facility] Immature Granulocytes Absolute 0.02 0.00 - 0.06 10*3/uL LAB HEMATOLOGY METHOD 02/08/2023 3:20 AM EST [facility] Blood Venous blood specimen / Unknown Venipuncture / Unknown 02/08/2023 3:04 AM EST 02/08/2023 3:08 AM EST [facility] - 02/08/2023 3:20 AM EST Therapeutic decision making should be based on absolute values, rather than percentages. us Darrin Mitchell MD LAB BLOOD ORDERABLES Final Res ult Performing Organization Address [facility] Co de Phone Number [facility] [address] [place] [address] * (ABNORMAL) POCT glucose meter (02/07/2023 8:28 [...] for testing. Comment 02/07/2023 8:31 PM EST [facility] Pack Out Operator ID Enedelia Sin 02/07/2023 8:31 PM EST [facility] Device ID [id number] 02/07/2023 8:31 PM EST [facility] Specimen Type POC Capillary 02/07/2023 8:31 PM EST [facility] Blood Capillary blood specimen / Unknown 02/07/2023 8:28 PM EST 02/07/2023 8:31 PM EST us Darrin Mitchell MD LAB POINT OF CARE TE ST DOCKED DEVICE UNSOLICITED RESULTS Final Result Performing Organization Address [facility] de Phone Number [facility] [address] [place] [address] * (ABNORMAL) POCT glucose meter (02/07/2023 6:11 [...] 02/07/2023 6:13 PM EST [facility] Pack Out Operator ID Everett Man 02/07/2023 6:13 PM EST [facility] Device ID [id number] 02/07/2023 6:13 PM EST [facility] Specimen Type POC Capillary 02/07/2023 6:13 PM EST [facility] Blood Capillary blood specimen / Unknown 02/07/2023 6:11 PM EST 02/07/2023 6:13 PM EST us Darrin Mitchell MD LAB POINT OF CARE TE ST DOCKED DEVICE UNSOLICITED RESULTS Final Result Performing Organization Address City/[facility]/ZIP Co de Phone Number [facility] [address] [place] [address] * (ABNORMAL) POCT glucose meter (02/07/2023 1:42 PM EST) [facility] POCT Glucose 245(H) 74 - 99 mg/dL [...] 02/07/2023 1:43 PM EST [facility] Pack Out Operator ID Everett Man 02/07/2023 1:43 PM EST [facility] Device ID [id number] 02/07/2023 1:43 PM EST [facility] Specimen Type POC Capillary 02/07/2023 1:43 PM EST [facility] Blood Capillary blood specimen / Unknown 02/07/2023 1:42 PM EST 02/07/2023 1:43 PM EST us Darrin Mitchell MD LAB POINT OF CARE TE ST DOCKED DEVICE UNSOLICITED RESULTS Final Result Performing Organization Address City/[facility]/ZIP Co de Phone Number [facility] [address] [place] [address] * (ABNORMAL) POCT glucose meter (02/07/2023 9:05 AM EST) [facility] POCT Glucose 117(H) 74 - 99 mg/dL [...] Comment 02/07/2023 9:07 AM EST [facility] Pack Out Operator ID Everett Man 02/07/2023 9:07 AM EST [facility] Device ID [id number] 02/07/2023 9:07 AM EST [facility] Specimen Type POC Capillary 02/07/2023 9:07 AM EST [facility] Blood Capillary blood specimen / Unknown 02/07/2023 9:05 AM EST 02/07/2023 9:07 AM EST us Darrin Mitchell MD LAB POINT OF CARE TE ST DOCKED DEVICE UNSOLICITED RESULTS Final Result Performing Organization Address [facility] Co de Phone Number [facility] [address] [place] [address] * (ABNORMAL) Magnesium, Plasma (02/07/2023 2:32 AM EST) [facility] Magnesium, Plasma 2.6(H) 1.9 - 2.4 mg/dL 02/07/2023 3:24 AM EST [facility] Blood Venous blood specimen / Unknown Venipuncture / Unknown 02/07/2023 2:32 AM EST 02/07/2023 2:43 AM EST us Darrin Mitchell MD LAB BLOOD ORDERABLES Final Res ult Performing Organization Address City/[facility]/ZIP Co de Phone Number [facility] [address] [place] [address] * (ABNORMAL) Comprehensive Metabolic Panel, Plasma (02/07/2023 2:32 AM EST) [facility] Glucose, Plasma 132(H) 74 - 99 mg/dL 02/07/2023 3:24 AM EST [facility] BUN, Plasma 98(H) 7 - 21 mg/dL 02/07/2023 3:24 AM [facility] Creatinine, Plasma 4.12(H) 0.80 - 1.30 mg/dL 02/07/2023 3:24 AM [facility] BUN/Creatinine Ratio 24 02/07/2023 3:24 AM [facility] Sodium, Plasma 140 136 - 145 mmol/L 02/07/2023 3:24 AM [facility] Potassium, Plasma 4.8 3.7 - 4.8 mmol/L 02/07/2023 3:24 AM [facility] Chloride, Plasma 101 97 - 107 mmol/L 02/07/2023 3:24 AM [facility] CO2, Plasma 28 22 - 29 mmol/L 02/07/2023 3:24 AM [facility] Anion Gap 11 6 - 16 mmol/L 02/07/2023 3:24 AM [facility] Total Calcium, Plasma 8.4(L) 8.9 - 10.2 mg/dL 02/07/2023 3:24 AM [facility] Total Protein 5.3(L) 6.3 - 7.9 g/dL 02/07/2023 3:24 AM [facility] Albumin, Plasma 3.2(L) 3.5 - 5.2 g/dL 02/07/2023 3:24 AM [facility] AST, Plasma 42 10 - 50 U/L 02/07/2023 3:24 AM [facility] ALT, Plasma 26 10 - 50 U/L 02/07/2023 3:24 AM [facility] Alkaline Phosphatase, Plasma 132(H) 40 - 115 U/L 02/07/2023 3:24 AM [facility] Total Bilirubin, Plasma 0.2 0.2 - 1.1 mg/dL 02/07/2023 3:24 AM [facility] eGFRcr 16.3 mL/min/1.7 3m*2 02/07/2023 3:24 AM [facility] Comment:Reported eGFRcr in m L/min/1.73m2 is based the CKD-EPI 2020 equation that does not use a race coefficient. Blood Venous blood specimen / Unknown Venipuncture / Unknown 02/07/2023 2:32 AM EST 02/07/2023 2:43 AM EST us Darrin Mitchell MD LAB BLOOD ORDERABLES Final Res ult [facility] [address] [place] [address] * (ABNORMAL) CBC and Differential (02/07/2023 2:32 AM EST) WBC Count 5.25 3.70 - 10.30 10*3/uL LAB HEMATOLOGY METHOD 02/07/2023 2:54 AM EST [facility] RBC Count 3.74(L) 4.60 - 6.10 10*6/uL LAB HEMATOLOGY METHOD 02/07/2023 2:54 AM EST [facility] HGB 10.6(L) 13.7 - 17.5 g/dL LAB HEMATOLOGY METHOD 02/07/2023 2:54 AM EST [facility] HCT 32.8(L) 40.0 - 51.0 % LAB HEMATOLOGY METHOD 02/07/2023 2:54 AM EST [facility] Platelet Count 188 155 - 369 10*3/uL LAB HEMATOLOGY METHOD 02/07/2023 2:54 AM EST [facility] MCV 88 79 - 98 fL LAB HEMATOLOGY METHOD 02/07/2023 2:54 AM EST [facility] MCH 28.3 26.0 - 32.0 pg LAB HEMATOLOGY METHOD 02/07/2023 2:54 AM EST [facility] MCHC 32.3 30.7 - 35.5 g/dL LAB HEMATOLOGY METHOD 02/07/2023 2:54 AM EST [facility] RDW 13.5 11.5 - 14.5 % LAB HEMATOLOGY METHOD 02/07/2023 2:54 AM EST [facility] MPV 11.5 8.8 - 12.5 fL LAB HEMATOLOGY METHOD 02/07/2023 2:54 AM EST [facility] nRBC 0.0 <=0.0 per 100 WBCs LAB HEMATOLOGY METHOD 02/07/2023 2:54 AM EST [facility] LAB Differential Type Automated LAB HEMATOLOGY METHOD 02/07/2023 2:54 AM EST [facility] Neutrophils % 49.0 % LAB HEMATOLOGY METHOD 02/07/2023 2:54 AM EST [facility] Lymphocytes % 37.0 % LAB HEMATOLOGY METHOD 02/07/2023 2:54 AM EST [facility] Monocytes % 10.0 % LAB HEMATOLOGY METHOD 02/07/2023 2:54 AM EST [facility] Eosinophils % 3.0 % LAB HEMATOLOGY METHOD 02/07/2023 2:54 AM EST [facility] Basophils % 0.0 % LAB HEMATOLOGY METHOD 02/07/2023 2:54 AM EST [facility] Immature Granulocytes % 1.0 % LAB HEMATOLOGY METHOD 02/07/2023 2:54 AM EST [facility] LAB Neutrophils Absolute 2.61 1.60 - 6.10 10*3/uL LAB HEMATOLOGY METHOD 02/07/2023 2:54 AM EST [facility] LAB Lymphocytes Absolute 1.92 1.20 - 3.90 10*3/uL LAB HEMATOLOGY METHOD 02/07/2023 2:54 AM EST [facility] Monocytes Absolute 0.52 0.30 - 0.90 10*3/uL LAB HEMATOLOGY METHOD 02/07/2023 2:54 AM EST [facility] Eosinophils Absolute 0.16 0.00 - 0.50 10*3/uL LAB HEMATOLOGY METHOD 02/07/2023 2:54 AM EST [facility] Basophils Absolute 0.01 0.00 - 0.10 10*3/uL LAB HEMATOLOGY METHOD 02/07/2023 2:54 AM EST [facility] Immature Granulocytes Absolute 0.03 0.00 - 0.06 10*3/uL LAB HEMATOLOGY METHOD 02/07/2023 2:54 AM EST [facility] Blood Venous blood specimen / Unknown Venipuncture / Unknown 02/07/2023 2:32 AM EST 02/07/2023 2:43 AM EST Narrative HEALTHCARE LAB - 02/07/2023 2:54 AM EST Therapeutic decision making should be based on absolute values, rather than percentages. us Darrin Mitchell MD LAB BLOOD ORDERABLES Final Res ult [facility] [address] [place] [address] * (ABNORMAL) POCT glucose meter (02/06/2023 8:21 PM EST) [facility] POCT Glucose 162(H) 74 - 99 mg/dL 02/06/2023 8:22 PM EST [facility] Comment:Accuracy of a glucos e [...] Comment 02/06/2023 8:22 PM EST HEALTHCARE LAB Pack Out Operator ID Enedelia Sin 02/06/2023 8:22 PM EST [facility] Device ID [id number] 02/06/2023 8:22 PM EST HEALTHCARE LAB Specimen Type POC Capillary 02/06/2023 8:22 PM EST [facility] Blood Capillary blood specimen / Unknown 02/06/2023 8:21 PM EST 02/06/2023 8:22 PM EST us Darrin Mitchell MD LAB POINT OF CARE TE ST DOCKED DEVICE UNSOLICITED RESULTS Final Result Performing Organization Address City/State/[facility] Co de Phone Number [facility] [address] [place] [address] * (ABNORMAL) POCT glucose meter (02/06/2023 6:36 PM EST) [facility] POCT Glucose 155(H) 74 - 99 mg/dL 02/06/2023 6:38 PM EST [facility] Comment:Accuracy of a glucos e [...] Comment 02/06/2023 6:38 PM EST HEALTHCARE LAB Pack Out Operator ID Rom Carlisle 02/06/2023 6:38 PM EST [facility] Device ID [id number] 02/06/2023 6:38 PM EST [facility]ARE LAB Specimen Type POC Capillary 02/06/2023 6:38 PM EST [facility] Blood Capillary blood specimen / Unknown 02/06/2023 6:36 PM EST 02/06/2023 6:38 PM EST us Darrin Mitchell MD LAB POINT OF CARE TE ST DOCKED DEVICE UNSOLICITED RESULTS Final Result [facility] [address] [place] [address] * US Renal Complete (02/06/2023 4:28 PM [...] kidney is normal in size and echogenicity [id number] cm. No hydronephrosis. No contour deforming masses. [...] glucose meter (02/06/2023 1:44 PM EST) Pathologist [facility] [place] POCT Glucose 227(H) 74 - 99 mg/dL [...] for testing. Comment 02/06/2023 1:46 PM EST [facility] Pack Out Operator ID Uzma Joel Landry 023 1:46 PM EST [facility] Device ID [id number] 02/06/2023 1:46 PM EST [facility] Specimen Type POC Capillary 02/06/2023 1:46 PM EST [facility] Blood Capillary blood specimen / Unknown 02/06/2023 1:44 PM EST 02/06/2023 1:46 PM EST Darrin Mitchell MD LAB POINT OF CARE TE ST DOCKED DEVICE UNSOLICITED RESULTS Final Result Performing Organization Address City/State/[facility] Co de Phone Number [facility] [address] [place] [address] * (ABNORMAL) POCT glucose meter (02/06/2023 9:11 AM EST) [facility] POCT Glucose 125(H) 74 - 99 mg/dL 02/06/2023 9:13 AM EST [facility] Comment:Accuracy of a glucos e result [...] 02/06/2023 9:13 AM EST [facility] Pack Out Operator ID Uzma Joel 023 9:13 AM EST [facility] Device ID [id number] 02/06/2023 9:13 AM EST [facility] Specimen Type POC Capillary 02/06/2023 9:13 AM EST [facility] Blood Capillary blood specimen / Unknown 02/06/2023 9:11 AM EST 02/06/2023 9:13 AM EST Darrin Mitchell MD LAB POINT OF CARE TE ST DOCKED DEVICE UNSOLICITED RESULTS Final Result Performing Organization Address [facility] Co de Phone Number [facility] [address] [place] [address] * Magnesium (02/06/2023 5:52 AM EST) Pathologist [facility] Magnesium, Plasma 1.9 1.9 - 2.4 mg/dL 02/06/2023 6:38 AM EST [facility] Blood Venous blood specimen / Unknown Venipuncture / Unknown 02/06/2023 5:52 AM EST 02/06/2023 6:06 AM EST us Darrin Mitchell MD LAB BLOOD ORDERABLES Final Res ult Performing Organization Address City/[facility] Co de Phone Number [facility] [address] [place] [address] * (ABNORMAL) Comprehensive Metabolic Panel, Plasma (02/06/2023 5:52 AM EST) Glucose, Plasma 117(H) 74 - 99 mg/dL 02/06/2023 6:38 AM EST [facility]ALTH[facility]ARE [facility] BUN, Plasma 83(H) 7 - 21 mg/dL 02/06/2023 6:38 AM EST [facility] Creatinine, Plasma 3.49(H) 0.80 - 1.30 mg/dL 02/06/2023 6:38 AM EST [facility] BUN/Creatinine Ratio 24 02/06/2023 6:38 AM EST [facility]ALTH[facility]ARE LAB Sodium, Plasma 143 136 - 145 mmol/L 02/06/2023 6:38 AM EST [facility] Potassium, Plasma 3.8 3.7 - 4.8 mmol/L 02/06/2023 6:38 AM EST [facility] Chloride, Plasma 109(H) 97 - 107 mmol/L 02/06/2023 6:38 AM EST [facility] CO2, Plasma 24 22 - 29 mmol/L 02/06/2023 6:38 AM EST [facility] Anion Gap 10 6 - 16 mmol/L 02/06/2023 6:38 AM EST [facility] Total Calcium, Plasma 6.9(L) 8.9 - 10.2 mg/dL 02/06/2023 6:38 AM EST [facility] Total Protein 4.3(L) 6.3 - 7.9 g/dL 02/06/2023 6:38 AM EST [facility] Albumin, Plasma 2.5(L) 3.5 - 5.2 g/dL 02/06/2023 6:38 AM EST [facility] AST, Plasma 32 10 - 50 U/L 02/06/2023 6:38 AM EST [facility] ALT, Plasma 21 10 - 50 U/L 02/06/2023 6:38 AM EST [facility] Alkaline Phosphatase, Plasma 92 40 - 115 U/L 02/06/2023 6:38 AM EST [facility] Total Bilirubin, Plasma 0.2 0.2 - 1.1 mg/dL 02/06/2023 6:38 AM EST [facility] eGFRcr 19.8 mL/min/1.7 3m*2 02/06/2023 6:38 AM EST [facility] Comment:Reported eGFRcr in m L/min/1.73m2 is based the CKD-EPI 2020 equation that does not use a race coefficient. Blood Venous blood specimen / Unknown Venipuncture / Unknown 02/06/2023 5:52 AM EST 02/06/2023 6:06 AM EST us Darrin Mitchell MD LAB BLOOD ORDERABLES Final Res ult [facility] [address] [place] [address] * (ABNORMAL) CBC and Differential (02/06/2023 5:52 AM EST) WBC Count 4.25 3.70 - 10.30 10*3/uL LAB HEMATOLOGY METHOD 02/06/2023 6:15 AM EST [facility] RBC Count 3.33(L) 4.60 - 6.10 10*6/uL LAB HEMATOLOGY METHOD 02/06/2023 6:15 AM EST [facility] HGB 9.4(L) 13.7 - 17.5 g/dL LAB HEMATOLOGY METHOD 02/06/2023 6:15 AM EST [facility] HCT 29.4(L) 40.0 - 51.0 % LAB HEMATOLOGY METHOD 02/06/2023 6:15 AM EST [facility] Platelet Count 156 155 - 369 10*3/uL LAB HEMATOLOGY METHOD 02/06/2023 6:15 AM EST [facility] MCV 88 79 - 98 fL LAB HEMATOLOGY METHOD 02/06/2023 6:15 AM EST [facility] MCH 28.2 26.0 - 32.0 pg LAB HEMATOLOGY METHOD 02/06/2023 6:15 AM EST [facility] MCHC 32.0 30.7 - 35.5 g/dL LAB HEMATOLOGY METHOD 02/06/2023 6:15 AM EST [facility] RDW 13.8 11.5 - 14.5 % LAB HEMATOLOGY METHOD 02/06/2023 6:15 AM EST [facility] MPV 11.4 8.8 - 12.5 fL LAB HEMATOLOGY METHOD 02/06/2023 6:15 AM EST [facility] nRBC 0.0 <=0.0 per 100 WBCs LAB HEMATOLOGY METHOD 02/06/2023 6:15 AM EST [facility] Differential Type Automated LAB HEMATOLOGY METHOD 02/06/2023 6:15 AM EST [facility] Neutrophils % 48.0 % LAB HEMATOLOGY METHOD 02/06/2023 6:15 AM EST [facility] Lymphocytes % 36.0 % LAB HEMATOLOGY METHOD 02/06/2023 6:15 AM EST [facility] Monocytes % 12.0 % LAB HEMATOLOGY METHOD 02/06/2023 6:15 AM EST [facility] Eosinophils % 3.0 % LAB HEMATOLOGY METHOD 02/06/2023 6:15 AM EST [facility] Basophils % 0.0 % LAB HEMATOLOGY METHOD 02/06/2023 6:15 AM EST [facility] Immature Granulocytes % 1.0 % LAB HEMATOLOGY METHOD 02/06/2023 6:15 AM EST [facility] Neutrophils Absolute 2.07 1.60 - 6.10 10*3/uL LAB HEMATOLOGY METHOD 02/06/2023 6:15 AM EST [facility] Lymphocytes Absolute 1.53 1.20 - 3.90 10*3/uL LAB HEMATOLOGY METHOD 02/06/2023 6:15 AM EST [facility] Monocytes Absolute 0.50 0.30 - 0.90 10*3/uL LAB HEMATOLOGY METHOD 02/06/2023 6:15 AM EST [facility] Eosinophils Absolute 0.12 0.00 - 0.50 10*3/uL LAB HEMATOLOGY METHOD 02/06/2023 6:15 AM EST [facility] Basophils Absolute 0.01 0.00 - 0.10 10*3/uL LAB HEMATOLOGY METHOD 02/06/2023 6:15 AM EST [facility] Immature Granulocytes Absolute 0.02 0.00 - 0.06 10*3/uL LAB HEMATOLOGY METHOD 02/06/2023 6:15 AM EST [facility] Blood Venous blood specimen / Unknown Venipuncture / Unknown 02/06/2023 5:52 AM EST 02/06/2023 6:07 AM EST Narrative HEALTHCARE LAB - 02/06/2023 6:15 AM EST Therapeutic decision making should be based on absolute values, rather than percentages. Darrin Mitchell MD LAB BLOOD ORDERABLES Final Res ult Performing Organization Address City/State/[facility] Co de Phone Number [facility] [address] [place] [address] * (ABNORMAL) POCT glucose meter (02/05/2023 8:41 [...] for testing. Comment 02/05/2023 8:43 PM EST [facility] Pack Out Operator ID Isaura Vargas 02/05/2023 8:43 PM EST [facility] Device ID [id number] 02/05/2023 8:43 PM EST [facility]ALTH[facility]ARE [facility] Specimen Type POC Capillary 02/05/2023 8:43 PM EST [facility] Blood Capillary blood specimen / Unknown 02/05/2023 8:41 PM EST 02/05/2023 8:43 PM EST us Darrin Mitchell MD LAB POINT OF CARE TE ST DOCKED DEVICE UNSOLICITED RESULTS Final Result Performing Organization Address [facility] Co de Phone Number [facility] [address] [place] [address] * (ABNORMAL) POCT glucose meter (02/05/2023 5:57 PM EST) Pathologist [facility] [place] POCT Glucose 240(H) 74 - 99 mg/dL [...] Comment 02/05/2023 5:59 PM EST HEALTHCARE LAB Pack Out Operator ID Everett Man 02/05/2023 5:59 PM EST [facility] Device ID [id number] 02/05/2023 5:59 PM EST [facility] Specimen Type POC Capillary 02/05/2023 5:59 PM EST [facility] Blood Capillary blood specimen / Unknown 02/05/2023 5:57 PM EST 02/05/2023 5:59 PM EST us Darrin Mitchell MD LAB POINT OF CARE TE ST DOCKED DEVICE UNSOLICITED RESULTS Final Result Performing Organization Address [facility] de Phone Number [facility] [address] [place] [address] * Urinalysis Microscopic Examination (02/05/2023 11:31 AM EST) Urine Urine specimen obtained by clean catch procedure / Unknown Non-blood Collection / Unknown 02/05/2023 11:31 AM EST 02/05/2023 11:47 AM EST Cary Restrepo MD LAB URINE ORDERABLES Final Res ult Performing Organization Address City/[facility]/ZIP Co de Phone Number [facility] [address] [place] [address] * Sodium, urine, random (02/05/2023 11:31 AM EST) Sodium, Urine 113 mmol/L 02/05/2023 12:29 PM EST [facility] Urine Urine specimen obtained by clean catch procedure / Unknown Non-blood Collection / Unknown 02/05/2023 11:31 AM EST 02/05/2023 11:56 AM EST us Cary Restrepo MD LAB URINE ORDERABLES Final Res ult Performing Organization Address [facility]/ZIP Co de Phone Number [facility] [address] [place] [address] * Protein, Random, Urine with Creatinine (02/05/2023 11:31 AM EST) Protein, Urine 104 mg/dL 02/05/2023 12:29 PM EST [facility] Creatinine, Urine 38 mg/dL 02/05/2023 12:29 PM EST [facility] Protein/Creati nine Ratio 2.7 mg/mg Creat 02/05/2023 12:29 PM EST [facility] Urine Urine specimen obtained by clean catch procedure / Unknown Non-blood Collection / Unknown 02/05/2023 11:31 AM EST 02/05/2023 11:56 AM EST us Cary Restrepo MD LAB URINE ORDERABLES Final Res ult Performing Organization Address [facility] Phone Number [facility] [address] [place] [address] * (ABNORMAL) Urinalysis with reflex microscopic (02/05/2023 11:31 AM EST) Color, Urine Yellow LAB URINALYSIS - AUTOMATED METHOD 02/05/2023 12:07 PM EST [facility] Clarity, Urine Clear LAB URINALYSIS - AUTOMATED METHOD 02/05/2023 12:07 PM EST [facility] Spec [place], Urine 1.014 <=1.005 to >=1.030 LAB URINALYSIS - AUTOMATED METHOD 02/05/2023 12:07 PM EST [facility] pH, Urine 6.0 4.5 to 8 LAB URINALYSIS - AUTOMATED METHOD 02/05/2023 12:07 PM EST [facility] Protein, Urine 100(A) Negative mg/dL LAB URINALYSIS - AUTOMATED METHOD 02/05/2023 12:07 PM [facility] Glucose, Urine Negative Negative mg/dL LAB URINALYSIS - AUTOMATED METHOD 02/05/2023 12:07 PM EST [facility] Ketones, Urine Negative Negative mg/dL LAB URINALYSIS - AUTOMATED METHOD 02/05/2023 12:07 PM [facility] Blood, Urine Small(A) Negative LAB URINALYSIS - AUTOMATED METHOD 02/05/2023 12:07 PM EST [facility] Bilirubin, Urine Negative Negative LAB URINALYSIS - AUTOMATED METHOD 02/05/2023 12:07 PM [facility] Urobilinogen, Urine 0.2 0.2 to 1.0 mg/dL LAB URINALYSIS - AUTOMATED METHOD 02/05/2023 12:07 PM [facility] Leukocytes, Urine Negative Negative LAB URINALYSIS - AUTOMATED METHOD 02/05/2023 12:07 PM [facility] Nitrite, Urine Negative Negative LAB URINALYSIS - AUTOMATED METHOD 02/05/2023 12:07 PM [facility] RBC, Urine 2 0 to 3 /HPF LAB URINALYSIS - AUTOMATED METHOD 02/05/2023 12:07 PM [facility] Comment:This result was prev iously suppressed from the chart. WBC, Urine 0 - 5 0 to 5 /HPF LAB URINALYSIS - AUTOMATED METHOD 02/05/2023 12:07 PM EST [facility] Comment:This result was prev iously suppressed from the chart. Squamous Epithelial Cells 0 - 2 0 to 5 /HPF LAB URINALYSIS - AUTOMATED METHOD 02/05/2023 12:07 PM EST [facility] Comment:This result was prev iously suppressed from the chart. Hyaline Casts 0 - 2 0 to 5 /LPF LAB URINALYSIS - AUTOMATED METHOD 02/05/2023 12:07 PM [facility] Comment:This result was prev iously suppressed from the chart. Bacteria, Urine Negative Negative LAB URINALYSIS - AUTOMATED METHOD 02/05/2023 12:07 PM [facility] Comment:This result was prev iously suppressed from the chart. Urine Urine specimen obtained by clean catch procedure / Unknown Non-blood Collection / Unknown 02/05/2023 11:31 AM EST 02/05/2023 11:47 AM EST us Cary Restrepo MD LAB URINE ORDERABLES Final Res ult Performing Organization Address City/[facility]/ZIP Co de Phone Number [facility] [address] [place] [address] * POCT glucose meter (02/05/2023 11:21 AM EST) POCT Glucose 78 74 - 99 mg/dL 02/05/2023 11:25 AM EST [facility] Comment:Accuracy of a glucos e [...] for testing. Comment 02/05/2023 11:25 AM EST [facility] Pack Out Operator ID SanzLeah hayes 02/05/2023 11:25 AM EST [facility] Device ID [id number] 02/05/2023 11:25 AM EST [facility] Specimen Type POC Capillary 02/05/2023 11:25 AM EST [facility] Blood Capillary blood specimen / Unknown 02/05/2023 11:21 AM EST 02/05/2023 11:25 AM EST us Darrin Mitchell MD LAB POINT OF CARE TE ST DOCKED DEVICE UNSOLICITED RESULTS Final Result Performing Organization Address City/[facility] Co de Phone Number [facility] [address] [place] [address] * POCT glucose meter (02/05/2023 7:33 AM EST) Pathologist [facility] [place] POCT Glucose 89 74 - 99 mg/dL [...] 02/05/2023 7:40 AM EST [facility] Pack Out Operator ID Leah Sanz 02/05/2023 7:40 AM EST [facility] Device ID [id number] 02/05/2023 7:40 AM EST [facility] Specimen Type POC Capillary 02/05/2023 7:40 AM EST [facility] Blood Capillary blood specimen / Unknown 02/05/2023 7:33 AM EST 02/05/2023 7:40 AM EST Cary Restrepo MD LAB POINT OF CARE TE ST DOCKED DEVICE UNSOLICITED RESULTS Final Result Performing Organization Address [facility] de Phone Number [facility] [address] [place] [address] * Anti Xa Level Unfractionated Heparin (02/05/2023 5:20 AM EST) Anti Xa Level Unfractionated Heparin 0.44 IU/mL 02/05/2023 5:49 AM EST [facility] Blood Venous blood specimen / Unknown Venipuncture / Unknown 02/05/2023 5:20 AM EST 02/05/2023 5:28 AM EST Narrative [facility] - 02/05/2023 5:49 AM EST Therapeutic Range: UFH Full Dose and ACS/ID protocols*: 0.30 - 0.70 IU/mL UFH Low Dose protocol*: 0.25 - 0.50 IU/mL UFH prophylaxis: Not established Cary Restrepo MD LAB BLOOD ORDERABLES Final Res ult Performing Organization Address City/[facility] Co de Phone Number [facility] [address] [place] [address] * (ABNORMAL) CBC W/O differential - HIT surveillance (02/05/2023 5:20 AM EST) WBC Count 6.24 3.70 - 10.30 10*3/uL LAB HEMATOLOGY METHOD 02/05/2023 5:32 AM EST [facility] RBC Count 4.02(L) 4.60 - 6.10 10*6/uL LAB HEMATOLOGY METHOD 02/05/2023 5:32 AM EST [facility] HGB 11.3(L) 13.7 - 17.5 g/dL LAB HEMATOLOGY METHOD 02/05/2023 5:32 AM EST [facility] HCT 35.0(L) 40.0 - 51.0 % LAB HEMATOLOGY METHOD 02/05/2023 5:32 AM EST [facility] Platelet Count 190 155 - 369 10*3/uL LAB HEMATOLOGY METHOD 02/05/2023 5:32 AM EST [facility] MCV 87 79 - 98 fL LAB HEMATOLOGY METHOD 02/05/2023 5:32 AM EST [facility] MCH 28.1 26.0 - 32.0 pg LAB HEMATOLOGY METHOD 02/05/2023 5:32 AM EST [facility] MCHC 32.3 30.7 - 35.5 g/dL LAB HEMATOLOGY METHOD 02/05/2023 5:32 AM EST [facility] RDW 13.9 11.5 - 14.5 % LAB HEMATOLOGY METHOD 02/05/2023 5:32 AM EST [facility] MPV 11.3 8.8 - 12.5 fL LAB HEMATOLOGY METHOD 02/05/2023 5:32 AM EST [facility] nRBC 0.0 <=0.0 per 100 WBCs LAB HEMATOLOGY METHOD 02/05/2023 5:32 AM EST [facility] Blood Venous blood specimen / Unknown Venipuncture / Unknown 02/05/2023 5:20 AM EST 02/05/2023 5:29 AM EST us Cary Restrepo MD LAB BLOOD ORDERABLES Final Res ult [facility] [address] [place] [address] * (ABNORMAL) Phosphorus (02/05/2023 5:20 AM EST) Phosphorus, Plasma 4.6(H) 2.5 - 4.5 mg/dL 02/05/2023 6:04 AM EST [facility] Blood Venous blood specimen / Unknown Venipuncture / Unknown 02/05/2023 5:20 AM EST 02/05/2023 5:34 AM EST us Cary Restrepo MD LAB BLOOD ORDERABLES Final Res ult [facility] [address] [place] [address] * Magnesium (02/05/2023 5:20 AM EST) Magnesium, Plasma 2.2 1.9 - 2.4 mg/dL 02/05/2023 6:04 AM EST [facility] Blood Venous blood specimen / Unknown Venipuncture / Unknown 02/05/2023 5:20 AM EST 02/05/2023 5:34 AM EST us Cary Restrepo MD LAB BLOOD ORDERABLES Final Res ult [facility] [address] [place] [address] * (ABNORMAL) Basic metabolic panel (02/05/2023 5:20 AM EST) Glucose, Plasma 103(H) 74 - 99 mg/dL 02/05/2023 6:04 AM EST [facility] BUN, Plasma 92(H) 7 - 21 mg/dL 02/05/2023 6:04 AM EST [facility] Creatinine, Plasma 4.01(H) 0.80 - 1.30 mg/dL 02/05/2023 6:04 AM EST [facility] BUN/Creatinine Ratio 23 02/05/2023 6:04 AM EST [facility] Sodium, Plasma 140 136 - 145 mmol/L 02/05/2023 6:04 AM EST [facility] Potassium, Plasma 4.3 3.7 - 4.8 mmol/L 02/05/2023 6:04 AM EST [facility] Chloride, Plasma 104 97 - 107 mmol/L 02/05/2023 6:04 AM EST [facility] CO2, Plasma 25 22 - 29 mmol/L 02/05/2023 6:04 AM EST [facility] Anion Gap 11 6 - 16 mmol/L 02/05/2023 6:04 AM EST [facility] Total Calcium, Plasma 8.4(L) 8.9 - 10.2 mg/dL 02/05/2023 6:04 AM EST [facility] eGFRcr 16.8 mL/min/1.7 3m*2 02/05/2023 6:04 AM EST [facility] Comment:Reported eGFRcr in m L/min/1.73m2 is based the CKD-EPI 2020 equation that does not use a race coefficient. Blood Venous blood specimen / Unknown Venipuncture / Unknown 02/05/2023 5:20 AM EST 02/05/2023 5:34 AM EST us Cary Restrepo MD LAB BLOOD ORDERABLES Final Res ult Performing Organization Address [facility] de Phone Number [facility] [address] [place] [address] * (ABNORMAL) POCT glucose meter (02/05/2023 3:31 AM EST) POCT Glucose 195(H) 74 - 99 mg/dL 02/05/2023 3:33 AM EST [facility] Comment:Accuracy of a glucos e result [...] for testing. Comment 02/05/2023 3:33 AM EST [facility] Pack Out Operator ID Janina Hutton 023 3:33 AM EST [facility] Device ID [id number] 02/05/2023 3:33 AM EST [facility] Specimen Type POC Capillary 02/05/2023 3:33 AM EST [facility] Blood Capillary blood specimen / Unknown 02/05/2023 3:31 AM EST 02/05/2023 3:33 AM EST us Cary Restrepo MD LAB POINT OF CARE TE ST DOCKED DEVICE UNSOLICITED RESULTS Final Result Performing Organization Address [facility] Co de Phone Number [facility] [address] [place] [address] * POCT glucose meter (02/05/2023 3:11 AM EST) POCT Glucose 76 74 - 99 mg/dL 02/05/2023 3:14 AM EST [facility] Comment:Accuracy of a glucos e result [...] 02/05/2023 3:14 AM EST [facility] Pack Out Operator ID Janina Hutton 023 3:14 AM EST [facility] Device ID [id number] 02/05/2023 3:14 AM EST [facility] Specimen Type POC Capillary 02/05/2023 3:14 AM EST [facility] Blood Capillary blood specimen / Unknown 02/05/2023 3:11 AM EST 02/05/2023 3:14 AM EST us Cary Restrepo MD LAB POINT OF CARE TE ST DOCKED DEVICE UNSOLICITED RESULTS Final Result Performing Organization Address City/[facility]/ZIP Co de Phone Number [facility] [address] [place] [address] * Blood Culture (Aerobic/Anaerobet Set) (02/04/2023 9:59 PM EST) Culture No growth at day 5 MIKE 02/09/2023 11:01 PM EST [facility] Blood Structure of antecubital vein / Unknown Venipuncture / Unknown 02/04/2023 9:59 PM EST 02/04/2023 10:16 PM EST us Cary Restrepo MD LAB MICROBIOLOGY - GENERAL ORD ERABLES Final Result [facility] [address] [place] [address] * Anti Xa Level Unfractionated Heparin (02/04/2023 9:59 PM EST) Anti Xa Level Unfractionated Heparin 0.40 IU/mL 02/04/2023 10:17 PM EST [facility] Blood Venous blood specimen / Unknown Venipuncture / Unknown 02/04/2023 9:59 PM EST 02/04/2023 10:02 PM EST Narrative [facility] - 02/04/2023 10:17 PM EST Therapeutic Range: UFH Full Dose and ACS/ID protocols*: 0.30 - 0.70 IU/mL [facility] Low Dose protocol*: 0.25 - 0.50 IU/mL UFH prophylaxis: Not established us Cary Restrepo MD LAB BLOOD ORDERABLES Final Res ult Performing Organization Address City/[facility]/ZIP Co de Phone Number [facility] [address] [place] [address] * Blood Culture (Aerobic/Anaerobet Set) (02/04/2023 8:06 PM EST) Culture No growth at day 5 MIKE 02/09/2023 9:01 PM EST [facility] Blood Structure of antecubital vein / Unknown Venipuncture / Unknown 02/04/2023 8:06 PM EST 02/04/2023 8:25 PM EST us Cary Restrepo MD LAB MICROBIOLOGY - GENERAL ORD ERABLES Final Result Performing Organization Address [facility] Co de Phone Number [facility] [address] [place] [address] * EKG now - STAT (adult) (02/04/2023 7:50 PM EST) EKG DIAGNOSIS CLASS Abnormal MUSE ECG Ventricular Rate 92 BPM MUSE ECG Atrial Rate 92 BPM MUSE ECG ND Interval 130 ms MUSE ECG QRSD Interval 94 ms MUSE ECG QT Interval 360 ms MUSE ECG QTC Interval 445 ms MUSE ECG P [place] 48 degrees MUSE ECG R [place] -24 degrees MUSE ECG T Wave [place] 157 degrees MUSE ECG Diagnosis Normal sinus rhythm MUSE ECG Diagnosis Left ventricular hypertrophy MUSE ECG Diagnosis with repolarization abnormality MUSE ECG Diagnosis ( MUSE ECG Diagnosis R in aVL MUSE ECG Diagnosis , MUSE ECG Diagnosis [place] product MUSE ECG Diagnosis ) MUSE ECG Diagnosis Confirmed by Heather Dan ([id number]) on 02/05/2023 10:09:21 AM MUSE ECG 02/04/2023 7:50 PM EST 02/05/2023 10:09 AM EST us Cary Restrepo MD ECG ORDERABLES Final Result Performing Organization Address City/[facility] Co de Phone Number MUSE ECG * (ABNORMAL) POCT glucose meter (02/04/2023 7:48 PM EST) [facility] POCT Glucose 144(H) 74 - 99 mg/dL [...] 02/04/2023 7:49 PM EST [facility] Pack Out Operator ID Tyler Burks 02/04/2023 7:49 PM EST [facility] Device ID [id number] 02/04/2023 7:49 PM EST [facility] Specimen Type POC Capillary 02/04/2023 7:49 PM EST [facility] Blood Capillary blood specimen / Unknown 02/04/2023 7:48 PM EST 02/04/2023 7:49 PM EST Cary Restrepo MD LAB POINT OF CARE TE ST DOCKED DEVICE UNSOLICITED RESULTS Final Result Performing Organization Address City/State/[facility] Co de Phone Number [facility] [address] [place] [address] * (ABNORMAL) POCT glucose meter (02/04/2023 5:58 PM EST) [facility] POCT Glucose 179(H) 74 - 99 mg/dL [...] 02/04/2023 6:00 PM EST [facility] Pack Out Operator ID Fatuma Metzger 02/04/2023 6:00 PM EST [facility] Device ID [id number] 02/04/2023 6:00 PM EST [facility] Specimen Type POC Capillary 02/04/2023 6:00 PM EST [facility] Blood Capillary blood specimen / Unknown 02/04/2023 5:58 PM EST 02/04/2023 6:00 PM EST Cary Restrepo MD LAB POINT OF CARE TE ST DOCKED DEVICE UNSOLICITED RESULTS Final Result Performing Organization Address [facility] de Phone Number [facility] [address] [place] [address] * (ABNORMAL) POCT glucose meter (02/04/2023 3:58 PM EST) [facility] POCT Glucose 189(H) 74 - [...] 02/04/2023 3:59 PM EST [facility] Pack Out Operator ID Fatuma Metzger 02/04/2023 3:59 PM EST [facility] Device ID [id number] 02/04/2023 3:59 PM EST [facility] Specimen Type POC Capillary 02/04/2023 3:59 PM EST [facility] Blood Capillary blood specimen / Unknown 02/04/2023 3:58 PM EST 02/04/2023 3:59 PM EST us Cary Restrepo MD LAB POINT OF CARE TE ST DOCKED DEVICE UNSOLICITED RESULTS Final Result Performing Organization Address [facility] Phone Number [facility] [address] [place] [address] * Anti Xa Level Unfractionated Heparin (02/04/2023 3:46 PM EST) [facility] Anti Xa Level Unfractionated Heparin 0.53 IU/mL 02/04/2023 4:30 PM EST [facility] Blood Venous blood specimen / Unknown Venipuncture / Unknown 02/04/2023 3:46 PM EST 02/04/2023 4:07 PM EST Narrative [facility] - 02/04/2023 4:30 PM EST Therapeutic Range: UFH Full Dose and ACS/ID protocols*: 0.30 - 0.70 IU/mL UFH Low Dose protocol*: 0.25 - 0.50 IU/mL UFH prophylaxis: Not established Cary Restrepo MD LAB BLOOD ORDERABLES Final Res ult Performing Organization Address City/[facility] Co de Phone Number [facility] [address] [place] [address] * (ABNORMAL) POCT glucose meter (02/04/2023 1:02 PM EST) POCT Glucose 261(H) 74 - 99 mg/dL 02/04/2023 1:03 PM EST [facility] Comment:Accuracy of a glucos e result [...] for testing. Comment 02/04/2023 1:03 PM EST [facility] Pack Out Operator ID Fatuma Metzger 02/04/2023 1:03 PM EST [facility] Device ID [id number] 02/04/2023 1:03 PM EST [facility] Specimen Type POC Capillary 02/04/2023 1:03 PM EST [facility] Blood Capillary blood specimen / Unknown 02/04/2023 1:02 PM EST 02/04/2023 1:03 PM EST Cary Restrepo MD LAB POINT OF CARE TE ST DOCKED DEVICE UNSOLICITED RESULTS Final Result Performing Organization Address City/[facility] Co de Phone Number [facility] [address] [place] [address] * ECHO, ADULT TRANSTHORACIC COMPLETE W/ CONTRAST [...] mean PAP 43 mmHg WILLIAM ISCV PA ND(ACCEL) 41.0 mmHg WILLIAM ISCV PA acc slope [...] WILLIAM ISCV TR Max PG 10 mmHG WILLIAM ISCV TAPSE 19 mm WILLIAM ISCV IVC [...] is no recent study available for direct amsh-zt-glqa comparison. Consider further evaluation with a transesophageal [...] is no recent study available for direct [id number] comparison. Consider further evaluation with a transesophageal [...] - 99 mg/dL 02/04/2023 11:27 AM EST [facility] Comment:Accuracy of a glucos e result [...] Comment 02/04/2023 11:27 AM EST [facility] Pack Out Operator ID UNohelia parker 02/04/2023 11:27 AM EST [facility] Device ID [id number] 02/04/2023 11:27 AM EST [facility] Specimen Type POC Capillary 02/04/2023 11:27 AM EST [facility] Blood Capillary blood specimen / Unknown 02/04/2023 11:26 AM EST 02/04/2023 11:27 AM EST us Cary Restrepo MD LAB POINT OF CARE TE ST DOCKED DEVICE UNSOLICITED RESULTS Final Result Performing Organization Address City/State/[facility] Co de Phone Number [facility] [address] [place] [address] * EKG now - STAT (adult) (02/04/2023 9:58 AM EST) EKG DIAGNOSIS CLASS Abnormal MUSE ECG Ventricular Rate 77 BPM MUSE ECG Atrial Rate 77 BPM MUSE ECG ND Interval 138 ms MUSE ECG QRSD Interval 98 ms MUSE ECG QT Interval 390 ms MUSE ECG QTC Interval 441 ms MUSE ECG P [place] 29 degrees MUSE ECG R [place] -48 degrees MUSE ECG T Wave [place] 158 degrees MUSE ECG Diagnosis Sinus rhythm MUSE ECG Diagnosis with MUSE ECG Diagnosis blocked MUSE ECG Diagnosis premature atrial complexes MUSE ECG Diagnosis Left anterior fascicular block MUSE ECG Diagnosis Left ventricular hypertrophy MUSE ECG Diagnosis with repolarization abnormality MUSE ECG Diagnosis ( MUSE ECG Diagnosis R in aVL MUSE ECG Diagnosis , MUSE ECG Diagnosis [place] product MUSE ECG Diagnosis ) MUSE ECG Diagnosis Possible MUSE ECG Diagnosis Anterolateral infarct MUSE ECG Diagnosis , age undetermined MUSE ECG Diagnosis T wave abnormality, consider lateral ischemia MUSE ECG Diagnosis Abnormal ECG MUSE ECG Diagnosis Confirmed by Darrin Mitchell ([id number]) on 02/04/2023 5:33:48 PM MUSE ECG 02/04/2023 [...] EST Therapeutic Range: UFH Full Dose and ACS/ID protocols*: 0.30 - 0.70 IU/mL UFH Low Dose protocol*: 0.25 - 0.50 IU/mL UFH prophylaxis: Not established Cary Restrepo MD LAB BLOOD ORDERABLES Final Res ult Performing Organization Address City/[facility]/ZIP Co de Phone Number [facility] [address] [place] [address] * Protime-INR (02/04/2023 8:48 AM EST) Prothrombin [...] INR 2.5 to 3.5 Prevention of recurrent ID ? INR 2.5 to 3.5 us Cary Restrepo MD LAB BLOOD ORDERABLES Final Res ult Performing Organization Address [facility] de Phone Number [facility] [address] [place] [address] * POCT glucose meter (02/04/2023 7:48 AM EST) POCT Glucose 97 74 - 99 mg/dL 02/04/2023 7:49 AM EST [facility] Comment:Accuracy of a glucos e result [...] for testing. Comment 02/04/2023 7:49 AM EST [facility] Pack Out Operator ID Fatuma Metzger 02/04/2023 7:49 AM EST [facility] Device ID [id number] 02/04/2023 7:49 AM EST [facility] Specimen Type POC Capillary 02/04/2023 7:49 AM EST [facility] Blood Capillary blood specimen / Unknown 02/04/2023 7:48 AM EST 02/04/2023 7:49 AM EST us Cary Restrepo MD LAB POINT OF CARE TE ST DOCKED DEVICE UNSOLICITED RESULTS Final Result Performing Organization Address [facility] de Phone Number [facility] [address] [place] [address] * XR Chest 1 View (02/04/2023 6:29 [...] - 2.4 mg/dL 02/04/2023 3:35 AM EST [facility] Blood Venous blood specimen / Unknown Venipuncture / Unknown 02/04/2023 2:53 AM EST 02/04/2023 3:02 AM EST us Cary Restrepo MD LAB BLOOD ORDERABLES Final Res ult [facility] [address] [place] [address] * (ABNORMAL) Renal function panel (02/04/2023 2:53 AM EST) Glucose, Plasma 141(H) 74 - 99 mg/dL 02/04/2023 3:35 AM EST [facility] BUN, Plasma 83(H) 7 - 21 mg/dL 02/04/2023 3:35 AM EST [facility] Creatinine, Plasma 3.93(H) 0.80 - 1.30 mg/dL 02/04/2023 3:35 AM EST [facility] BUN/Creatinine Ratio 21 02/04/2023 3:35 AM EST [facility] Sodium, Plasma 140 136 - 145 mmol/L 02/04/2023 3:35 AM EST [facility] Potassium, Plasma 5.2(H) 3.7 - 4.8 mmol/L 02/04/2023 3:35 AM EST [facility] Chloride, Plasma 102 97 - 107 mmol/L 02/04/2023 3:35 AM EST [facility] CO2, Plasma 23 22 - 29 mmol/L 02/04/2023 3:35 AM EST [facility] Anion Gap 15 6 - 16 mmol/L 02/04/2023 3:35 AM EST [facility] Total Calcium, Plasma 8.4(L) 8.9 - 10.2 mg/dL 02/04/2023 3:35 AM EST [facility] Phosphorus, Plasma 5.1(H) 2.5 - 4.5 mg/dL 02/04/2023 3:35 AM EST [facility] Albumin, Plasma 3.6 3.5 - 5.2 g/dL 02/04/2023 3:35 AM EST [facility] eGFRcr 17.2 mL/min/1.7 3m*2 02/04/2023 3:35 AM EST [facility] Comment:Reported eGFRcr in m L/min/1.73m2 is based the CKD-EPI 2020 equation that does not use a race coefficient. Blood Venous blood specimen / Unknown Venipuncture / Unknown 02/04/2023 2:53 AM EST 02/04/2023 3:02 AM EST Cary Restrepo MD LAB BLOOD ORDERABLES Final Res ult Performing Organization Address City/[facility]/ZIP Co de Phone Number [facility] [address] [place] [address] * (ABNORMAL) CBC W/O Differential (02/04/2023 2:53 AM EST) WBC Count 16.27(H) 3.70 - 10.30 10*3/uL LAB HEMATOLOGY METHOD 02/04/2023 2:59 AM EST [facility] RBC Count 4.35(L) 4.60 - 6.10 10*6/uL LAB HEMATOLOGY METHOD 02/04/2023 2:59 AM EST [facility] HGB 12.4(L) 13.7 - 17.5 g/dL LAB HEMATOLOGY METHOD 02/04/2023 2:59 AM EST [facility] HCT 38.0(L) 40.0 - 51.0 % LAB HEMATOLOGY METHOD 02/04/2023 2:59 AM EST [facility] Platelet Count 270 155 - 369 10*3/uL LAB HEMATOLOGY METHOD 02/04/2023 2:59 AM EST [facility] MCV 87 79 - 98 fL LAB HEMATOLOGY METHOD 02/04/2023 2:59 AM EST [facility] MCH 28.5 26.0 - 32.0 pg LAB HEMATOLOGY METHOD 02/04/2023 2:59 AM EST [facility] MCHC 32.6 30.7 - 35.5 g/dL LAB HEMATOLOGY METHOD 02/04/2023 2:59 AM EST [facility] RDW 14.0 11.5 - 14.5 % LAB HEMATOLOGY METHOD 02/04/2023 2:59 AM EST [facility] MPV 10.9 8.8 - 12.5 fL LAB HEMATOLOGY METHOD 02/04/2023 2:59 AM EST [facility] nRBC 0.0 <=0.0 per 100 WBCs LAB HEMATOLOGY METHOD 02/04/2023 2:59 AM EST [facility] Blood Venous blood specimen / Unknown Venipuncture / Unknown 02/04/2023 2:53 AM EST 02/04/2023 2:56 AM EST Cary Restrepo MD LAB BLOOD ORDERABLES Final Res ult Performing Organization Address City/[facility]/ZIP Co de Phone Number [facility] [address] [place] [address] * (ABNORMAL) POCT glucose meter (02/04/2023 12:16 AM EST) Pathologist [facility] POCT Glucose 207(H) 74 - 99 mg/dL [...] Comment 02/04/2023 12:18 AM EST [facility] Pack Out Operator ID Gisselle Rene 02/04/2023 12:18 AM EST [facility] Device ID [id number] 02/04/2023 12:18 AM EST [facility] Specimen Type POC Capillary 02/04/2023 12:18 AM EST [facility] Blood Capillary blood specimen / Unknown 02/04/2023 12:16 AM EST 02/04/2023 12:18 AM EST us Cary Restrepo MD LAB POINT OF CARE TE ST DOCKED DEVICE UNSOLICITED RESULTS Final Result [facility] [address] [place] [address] * Light Blue Top (02/03/2023 11:28 PM EST) [facility] Extra Hold for add-ons 02/04/2023 2:01 AM EST [facility] Comment:Auto resulted. Blood Venous blood specimen / Unknown 02/03/2023 11:28 PM EST 02/03/2023 11:33 PM EST us Cary Restrepo MD LAB BLOOD ORDERABLES Final Res ult [facility] [address] [place] [address] * (ABNORMAL) Blood gas, venous (02/03/2023 11:28 PM EST) [facility] pH, Venous 7.32 7.32 - 7.43 LAB HEMATOLOGY METHOD 02/03/2023 11:34 PM EST [facility] pCO2, Venous 44 40 - 55 mmHg LAB HEMATOLOGY METHOD 02/03/2023 11:34 PM EST [facility] pO2, Venous 43(H) 25 - 40 mmHg LAB HEMATOLOGY METHOD 02/03/2023 11:34 PM [facility] SO2, Measured, Venous 70 65 - 80 % LAB HEMATOLOGY METHOD 02/03/2023 11:34 PM EST [facility] Base Excess, Venous -3.5(L) -2.0 - 3.0 mmol/L LAB HEMATOLOGY METHOD 02/03/2023 11:34 PM EST [facility] Bicarbonate, Calculated, Venous 23 22 - 26 mmol/L LAB HEMATOLOGY METHOD 02/03/2023 11:34 PM [facility] Hematocrit, Whole Blood 40.0 40.0 - 51.0 % LAB HEMATOLOGY METHOD 02/03/2023 11:34 PM EST [facility] Sodium, Whole Blood 140 136 - 145 mmol/L LAB HEMATOLOGY METHOD 02/03/2023 11:34 PM [facility] Potassium, Whole Blood 5.4(H) 3.6 - 4.9 mmol/L LAB HEMATOLOGY METHOD 02/03/2023 11:34 PM EST [facility] Chloride, Whole Blood 104 97 - 107 mmol/L LAB HEMATOLOGY METHOD 02/03/2023 11:34 PM [facility] Glucose, Whole Blood 259(H) 74 - 99 mg/dL LAB HEMATOLOGY METHOD 02/03/2023 11:34 PM [facility] Lactate, Venous, Whole Blood 2.6(H) 0.5 - 2.2 mmol/L LAB HEMATOLOGY METHOD 02/03/2023 11:34 PM EST [facility] Ionized Calcium, Whole Blood 4.3(L) 4.6 - 5.1 mg/dL LAB HEMATOLOGY METHOD 02/03/2023 11:34 PM [facility] Blood Venous blood specimen / Unknown Venipuncture / Unknown 02/03/2023 11:28 PM EST 02/03/2023 11:32 PM EST us Cary Restrepo MD LAB BLOOD ORDERABLES Final Res ult [facility] [address] [place] [address] * (ABNORMAL) Anti Xa Level Unfractionated Heparin (02/03/2023 11:28 PM EST) Anti Xa Level Unfractionated Heparin >1.10(HH) IU/mL 02/04/2023 12:08 AM EST [facility] Blood Venous blood specimen / Unknown Venipuncture / Unknown 02/03/2023 11:28 PM EST 02/03/2023 11:30 PM EST Narrative [facility] - 02/04/2023 12:08 AM EST Therapeutic Range: UFH Full Dose and ACS/ID protocols*: 0.30 - 0.70 IU/mL UFH Low Dose protocol*: 0.25 - 0.50 IU/mL UFH prophylaxis: Not established Cary Restrepo MD LAB BLOOD ORDERABLES Final Res ult Performing Organization Address [facility] Co de Phone Number [facility] [address] [place] [address] * (ABNORMAL) Anti Xa Level Unfractionated Heparin (02/03/2023 10:45 PM EST) Anti Xa Level Unfractionated Heparin >1.10(HH) IU/mL 02/03/2023 11:02 PM EST [facility] Blood Venous blood specimen / Unknown Venipuncture / Unknown 02/03/2023 10:45 PM EST 02/03/2023 10:48 PM EST Narrative [facility] - 02/03/2023 11:02 PM EST Therapeutic Range: UFH Full Dose and ACS/ID protocols*: 0.30 - 0.70 IU/mL UFH Low Dose protocol*: 0.25 - 0.50 IU/mL UFH prophylaxis: Not established us Cary Restrepo MD LAB BLOOD ORDERABLES Final Res ult [facility] [address] [place] [address] * (ABNORMAL) POCT glucose meter (02/03/2023 8:27 [...] for testing. Comment 02/03/2023 8:30 PM EST [facility] Pack Out Operator ID Gisselle Rene 02/03/2023 8:30 PM EST [facility] Device ID [id number] 02/03/2023 8:30 PM EST [facility] Specimen Type POC Capillary 02/03/2023 8:30 PM EST [facility] Blood Capillary blood specimen / Unknown 02/03/2023 8:27 PM EST 02/03/2023 8:30 PM EST Cary Restrepo MD LAB POINT OF CARE TE ST DOCKED DEVICE UNSOLICITED RESULTS Final Result Performing Organization Address City/State/[facility] Phone Number [facility] [address] [place] [address] * (ABNORMAL) Blood gas, venous (02/03/2023 7:53 PM EST) pH, Venous 7.29(L) 7.32 - 7.43 LAB HEMATOLOGY METHOD 02/03/2023 8:03 PM EST [facility] pCO2, Venous 45 40 - 55 mmHg LAB HEMATOLOGY METHOD 02/03/2023 8:03 PM EST [facility] pO2, Venous 42(H) 25 - 40 mmHg LAB HEMATOLOGY METHOD 02/03/2023 8:03 PM EST [facility] SO2, Measured, Venous 72 65 - 80 % LAB HEMATOLOGY METHOD 02/03/2023 8:03 PM EST [facility] Base Excess, Venous -5.2(L) -2.0 - 3.0 mmol/L LAB HEMATOLOGY METHOD 02/03/2023 8:03 PM EST [facility] Bicarbonate, Calculated, Venous 21(L) 22 - 26 mmol/L LAB HEMATOLOGY METHOD 02/03/2023 8:03 PM EST [facility] Hematocrit, Whole Blood 36.7(L) 40.0 - 51.0 % LAB HEMATOLOGY METHOD 02/03/2023 8:03 PM EST [facility] Sodium, Whole Blood 138 136 - 145 mmol/L LAB HEMATOLOGY METHOD 02/03/2023 8:03 PM EST [facility] Potassium, Whole Blood 5.5(H) 3.6 - 4.9 mmol/L LAB HEMATOLOGY METHOD 02/03/2023 8:03 PM EST [facility] Chloride, Whole Blood 102 97 - 107 mmol/L LAB HEMATOLOGY METHOD 02/03/2023 8:03 PM EST [facility] Glucose, Whole Blood 413(H) 74 - 99 mg/dL LAB HEMATOLOGY METHOD 02/03/2023 8:03 PM EST [facility] Lactate, Venous, Whole Blood 4.0(H) 0.5 - 2.2 mmol/L LAB HEMATOLOGY METHOD 02/03/2023 8:03 PM EST [facility] Ionized Calcium, Whole Blood 4.2(L) 4.6 - 5.1 mg/dL LAB HEMATOLOGY METHOD 02/03/2023 8:03 PM EST [facility] Blood Venous blood specimen / Unknown Venipuncture / Unknown 02/03/2023 7:53 PM EST 02/03/2023 7:59 PM EST Cary Restrepo MD LAB BLOOD ORDERABLES Final Res ult [facility] [address] [place] [address] * Magnesium (02/03/2023 7:52 PM EST) Magnesium, Plasma 2.2 1.9 - 2.4 mg/dL 02/03/2023 8:20 PM EST [facility] Blood Venous blood specimen / Unknown Venipuncture / Unknown 02/03/2023 7:52 PM EST 02/03/2023 7:59 PM EST Cary Restrepo MD LAB BLOOD ORDERABLES Final Res ult [facility] [address] [place] [address] * (ABNORMAL) Basic metabolic panel (02/03/2023 7:52 PM EST) Glucose, Plasma 422(H) 74 - 99 mg/dL 02/03/2023 8:20 PM EST [facility] BUN, Plasma 79(H) 7 - 21 mg/dL 02/03/2023 8:20 PM EST [facility] Creatinine, Plasma 3.77(H) 0.80 - 1.30 mg/dL 02/03/2023 8:20 PM EST [facility] BUN/Creatinine Ratio 21 02/03/2023 8:20 PM EST [facility] Sodium, Plasma 134(L) 136 - 145 mmol/L 02/03/2023 8:20 PM EST [facility] Potassium, Plasma 5.6(H) 3.7 - 4.8 mmol/L 02/03/2023 8:20 PM EST [facility] Chloride, Plasma 101 97 - 107 mmol/L 02/03/2023 8:20 PM EST [facility] CO2, Plasma 19(L) 22 - 29 mmol/L 02/03/2023 8:20 PM EST [facility] Anion Gap 14 6 - 16 mmol/L 02/03/2023 8:20 PM EST [facility] Total Calcium, Plasma 7.9(L) 8.9 - 10.2 mg/dL 02/03/2023 8:20 PM EST [facility] eGFRcr 18.1 mL/min/1.7 3m*2 02/03/2023 8:20 PM EST [facility] Comment:Reported eGFRcr in m L/min/1.73m2 is based the CKD-EPI 2020 equation that does not use a race coefficient. Blood Venous blood specimen / Unknown Venipuncture / Unknown 02/03/2023 7:52 PM EST 02/03/2023 7:59 PM EST us Cary Restrepo MD LAB BLOOD ORDERABLES Final Res ult [facility] [address] [place] [address] * ECG Adult (02/03/2023 7:44 PM EST) EKG DIAGNOSIS CLASS Abnormal MUSE ECG Ventricular Rate 97 BPM MUSE ECG Atrial Rate 97 BPM MUSE ECG ND Interval 158 ms MUSE ECG QRSD Interval 88 ms MUSE ECG QT Interval 360 ms MUSE ECG QTC Interval 457 ms MUSE ECG P [place] 40 degrees MUSE ECG R [place] -44 degrees MUSE ECG T Wave [place] 145 degrees MUSE ECG Diagnosis Normal sinus [...] ECG ORDERABLES Final Result Performing Organization Address [facility] Co de Phone Number MUSE ECG * ECG Adult (02/03/2023 6:35 PM EST) EKG DIAGNOSIS CLASS Abnormal MUSE ECG Ventricular Rate 93 BPM MUSE ECG Atrial Rate 93 BPM MUSE ECG ND Interval 132 ms MUSE ECG QRSD Interval 80 ms MUSE ECG QT Interval 366 ms MUSE ECG QTC Interval 455 ms MUSE ECG P [place] 38 degrees MUSE ECG R [place] -37 degrees MUSE ECG T Wave [place] 183 degrees MUSE ECG Diagnosis Normal sinus [...] ECG ORDERABLES Final Result Performing Organization Address [facility] Co de Phone Number [facility] ECG * (ABNORMAL) CBC W/O Differential - Baseline (02/03/2023 5:46 PM EST) WBC Count 17.41(H) 3.70 - 10.30 10*3/uL LAB HEMATOLOGY METHOD 02/03/2023 5:50 PM EST [facility] RBC Count 4.32(L) 4.60 - 6.10 10*6/uL LAB HEMATOLOGY METHOD 02/03/2023 5:50 PM EST [facility] HGB 12.2(L) 13.7 - 17.5 g/dL LAB HEMATOLOGY METHOD 02/03/2023 5:50 PM EST [facility] HCT 38.8(L) 40.0 - 51.0 % LAB HEMATOLOGY METHOD 02/03/2023 5:50 PM EST [facility] Platelet Count 302 155 - 369 10*3/uL LAB HEMATOLOGY METHOD 02/03/2023 5:50 PM EST [facility] MCV 90 79 - 98 fL LAB HEMATOLOGY METHOD 02/03/2023 5:50 PM EST [facility] MCH 28.2 26.0 - 32.0 pg LAB HEMATOLOGY METHOD 02/03/2023 5:50 PM EST [facility] MCHC 31.4 30.7 - 35.5 g/dL LAB HEMATOLOGY METHOD 02/03/2023 5:50 PM EST [facility] RDW 14.1 11.5 - 14.5 % LAB HEMATOLOGY METHOD 02/03/2023 5:50 PM EST [facility] MPV 11.5 8.8 - 12.5 fL LAB HEMATOLOGY METHOD 02/03/2023 5:50 PM EST [facility] nRBC 0.0 <=0.0 per 100 WBCs LAB HEMATOLOGY METHOD 02/03/2023 5:50 PM EST [facility] Blood Venous blood specimen / Unknown Venipuncture / Unknown 02/03/2023 5:46 PM EST 02/03/2023 5:49 PM EST us Cary Restrepo MD LAB BLOOD ORDERABLES Final Res ult [facility] [address] [place] [address] * (ABNORMAL) POCT glucose meter (02/03/2023 5:01 PM EST) POCT Glucose 360(H) 74 - 99 mg/dL 02/03/2023 5:03 PM EST [facility] Comment:Accuracy of a glucos e [...] for testing. Comment 02/03/2023 5:03 PM EST [facility] Pack Out Operator ID Cheryle Chow 5:03 PM EST [facility] Device ID [id number] 02/03/2023 5:03 PM EST [facility] Specimen Type POC Capillary 02/03/2023 5:03 PM EST [facility] Blood Capillary blood specimen / Unknown 02/03/2023 5:01 PM EST 02/03/2023 5:03 PM EST Cary Restrepo MD LAB POINT OF CARE TE ST DOCKED DEVICE UNSOLICITED RESULTS Final Result Performing Organization Address City/State/[facility] Phone Number [facility] [address] [place] [address] * (ABNORMAL) Protime-INR (02/03/2023 4:20 PM EST) [facility] Prothrombin Time 14.4(H) 12.0 - 14.3 sec 02/03/2023 4:36 PM EST [facility] INR 1.2(H) 0.9 - 1.1 02/03/2023 4:36 PM EST [facility] Blood Venous blood specimen / Unknown Venipuncture / Unknown 02/03/2023 4:20 PM EST 02/03/2023 4:23 PM EST Narrative [facility] - 02/03/2023 4:36 PM EST OPTIMAL INR RANGES FOR PATIENT ON ORAL ANTICOAGULANT THERAPY Prevention of venous thromboembolism ?INR 2.0 to 3.0 In patients with heart disease: Atrial fibrillation ?INR 2.0 to 3.0 Valvular heart disease ? INR 2.0 to 3.0 Tissue heart valves ?INR 2.0 to 3.0 Mechanical prosthetic valves ? INR 2.5 to 3.5 Prevention of recurrent ID ? INR 2.5 to 3.5 Cary Restrepo MD LAB BLOOD ORDERABLES Final Res ult Performing Organization Address [facility] de Phone Number HEALTHCARE LAB [address] [place] [address] * Anti Xa Level Unfractionated Heparin - Baseline (02/03/2023 4:20 PM EST) Anti Xa Level Unfractionated Heparin <0.11 IU/mL 02/03/2023 4:37 PM EST [facility] Blood Venous blood specimen / Unknown Venipuncture / Unknown 02/03/2023 4:20 PM EST 02/03/2023 4:23 PM EST Narrative [facility] - 02/03/2023 4:37 PM EST Therapeutic Range: UFH Full Dose and ACS/ID protocols*: 0.30 - 0.70 IU/mL UFH Low Dose protocol*: 0.25 - 0.50 IU/mL UFH prophylaxis: Not established Cary Rsetrepo MD LAB BLOOD ORDERABLES Final Res ult Performing Organization Address [facility] de Phone Number HEALTHCARE [facility] [address] [place] [address] * (ABNORMAL) Potassium (02/03/2023 2:03 PM EST) Potassium, Plasma 5.6(H) 3.7 - 4.8 mmol/L 02/03/2023 2:19 PM EST [facility] Blood Venous blood specimen / Unknown Venipuncture / Unknown 02/03/2023 2:03 PM EST 02/03/2023 2:05 PM EST us Cary Restrepo MD LAB BLOOD ORDERABLES Final Res ult Performing Organization Address [facility] de Phone Number HEALTHCARE [facility] [address] [place] [address] * (ABNORMAL) POCT glucose meter (02/03/2023 1:54 PM EST) [facility] POCT Glucose 312(H) 74 - 99 mg/dL 02/03/2023 1:55 PM EST [facility] Comment:Accuracy of a glucos e result [...] for testing. Comment 02/03/2023 1:55 PM EST [facility] Pack Out Operator ID Pierre Renee 02/03/2023 1:55 PM EST [facility] Device ID [id number] 02/03/2023 1:55 PM EST [facility] Specimen Type POC Capillary 02/03/2023 1:55 PM EST [facility] Blood Capillary blood specimen / Unknown 02/03/2023 1:54 PM EST 02/03/2023 1:55 PM EST Cary Restrepo MD LAB POINT OF CARE TE ST DOCKED DEVICE UNSOLICITED RESULTS Final Result Performing Organization Address City/State/[facility] Co de Phone Number [facility] [address] [place] [address] * (ABNORMAL) Blood gas, venous (02/03/2023 11:23 AM EST) [facility] pH, Venous 7.29(L) 7.32 - 7.43 LAB HEMATOLOGY METHOD 02/03/2023 11:26 AM EST [facility] pCO2, Venous 50 40 - 55 mmHg LAB HEMATOLOGY METHOD 02/03/2023 11:26 AM EST [facility] pO2, Venous 39 25 - 40 mmHg LAB HEMATOLOGY METHOD 02/03/2023 11:26 AM EST [facility] SO2, Measured, Venous 61(L) 65 - 80 % LAB HEMATOLOGY METHOD 02/03/2023 11:26 AM EST [facility] Base Excess, Venous -3.3(L) -2.0 - 3.0 mmol/L LAB HEMATOLOGY METHOD 02/03/2023 11:26 AM EST [facility] Bicarbonate, Calculated, Venous 24 22 - 26 mmol/L LAB HEMATOLOGY METHOD 02/03/2023 11:26 AM EST [facility] Hematocrit, Whole Blood 36.7(L) 40.0 - 51.0 % LAB HEMATOLOGY METHOD 02/03/2023 11:26 AM EST [facility] Sodium, Whole Blood 139 136 - 145 mmol/L LAB HEMATOLOGY METHOD 02/03/2023 11:26 AM EST [facility] Potassium, Whole Blood 4.8 3.6 - 4.9 mmol/L LAB HEMATOLOGY METHOD 02/03/2023 11:26 AM EST [facility] Chloride, Whole Blood 104 97 - 107 mmol/L LAB HEMATOLOGY METHOD 02/03/2023 11:26 AM EST [facility] Glucose, Whole Blood 260(H) 74 - 99 mg/dL LAB HEMATOLOGY METHOD 02/03/2023 11:26 AM EST [facility] Lactate, Venous, Whole Blood 2.1 0.5 - 2.2 mmol/L LAB HEMATOLOGY METHOD 02/03/2023 11:26 AM EST [facility] Ionized Calcium, Whole Blood 4.3(L) 4.6 - 5.1 mg/dL LAB HEMATOLOGY METHOD 02/03/2023 11:26 AM EST [facility] Blood Venous blood specimen / Unknown Venipuncture / Unknown 02/03/2023 11:23 AM EST 02/03/2023 11:24 AM EST Niko Rodriguez MD LAB BLOOD ORDERABLES Final Result [facility] [address] [place] [address] * (ABNORMAL) Troponin T, High Sensitivity, 2 Hour, Plasma (02/03/2023 8:50 AM EST) Troponin T, High Sensitivity, 2 Hour 198(H) <19 ng/L 02/03/2023 9:12 AM EST [facility] Troponin Delta 20(H) <10 ng/L 02/03/2023 9:12 AM EST [facility] Troponin Delta Interpretation Significant 02/03/2023 9:12 AM EST [facility] Comment:Significant change i n Troponin [...] ORDERABLES Final R esult Performing Organization Address [facility]/ZIP Co de Phone Number HEALTHCARE LAB [address] [place] [address] * (ABNORMAL) Multi Drug Resistance Test (02/03/2023 8:17 AM EST) Culture Methicillin-Resist ant Staphylococcus aureus(AA) 02/04/2023 8:22 AM EST [facility] Swab (Nares and Josefina Rectal) Non-blood Collection / Unknown 02/03/2023 8:17 AM EST 02/03/2023 8:35 AM EST Niko Rodriguez MD LAB MICROBIOLOGY - GENERAL ORDERABLES Final Result Performing Organization Address [facility] de Phone Number [facility] [address] [place] [address] * XR Chest 1 View (02/03/2023 7:28 [...] Detected Not Detected 02/04/2023 10:17 AM EST [facility] Swab Nasopharyngeal structure / Unknown [...] GENERAL ORDERABLES Final Result Performing Organization Address City/State/[facility] Co de Phone Number HEALTHCARE LAB [address] [place] [address] * Nasopharyngeal Respiratory Panel (02/03/2023 6:59 AM [...] Respiratory PCR Panel is performed using the [employer] instrument. This assay is for in vitro diagnostic use under the FDA Emergency Use Authorization (EUA) only. The [facility] Clinical Microbiology Laboratory is certified under the Clinical Laboratory Improvement Amendments of 1988 (CLIA-88) as qualified to perform high complexity clinical laboratory testing. Don Jeffries MD LAB MICROBIOLOGY - GENERAL O RDERABLES Final Result Performing Organization Address City/[facility]/ZIP Co de Phone Number [facility] [address] [place] [address] * (ABNORMAL) POCT glucose meter (02/03/2023 6:58 AM EST) POCT Glucose 185(H) 74 - 99 mg/dL 02/03/2023 6:59 AM EST [facility] Comment:Accuracy of a glucos e result [...] for testing. Comment 02/03/2023 6:59 AM EST [facility] Pack Out Operator ID Pierre Renee 02/03/2023 6:59 AM EST [facility] Device ID [id number] 02/03/2023 6:59 AM EST [facility] Specimen Type POC Capillary 02/03/2023 6:59 AM EST [facility] Blood Capillary blood specimen / Unknown 02/03/2023 6:58 AM EST 02/03/2023 6:59 AM EST Don Jeffries MD LAB POINT OF CARE TE ST DOCKED DEVICE UNSOLICITED RESULTS Final Result Performing Organization Address City/[facility]/ZIP Co de Phone Number [facility] [address] [place] [address] * ED HIV 1/2 Antibody/Antigen Screen w/Reflex to HIV 1/2 Differentiation (02/03/2023 6:48 AM EST) Pathologist [facility] HIV 1 & 2 Antibody/Antigen Screen Non Reactive Non Reactive 02/03/2023 7:53 AM EST [facility] Comment:Screening for HIV 1 & 2 antibodies, and P24 antigen is NONREACTIVE. No confirmatory testing is required. Blood Venous blood specimen / Unknown Venipuncture / Unknown 02/03/2023 6:48 AM EST 02/03/2023 7:09 AM EST us Don Jeffries MD LAB BLOOD ORDERABLES Final R esult Performing Organization Address City/[facility] Co de Phone Number HEALTHCARE LAB [address] [place] [address] * Hepatitis C Antibody - ED (02/03/2023 6:48 AM EST) Pathologist [facility] Hepatitis C Antibody Negative Negative 02/03/2023 7:53 AM EST [facility] Blood Venous blood specimen / Unknown Venipuncture / Unknown 02/03/2023 6:48 AM EST 02/03/2023 7:09 AM EST us Don Jeffries MD LAB BLOOD ORDERABLES Final R esult Performing Organization Address [facility] de Phone Number [facility] [address] [place] [address] * (ABNORMAL) BNP (02/03/2023 6:48 AM EST) Pathologist [facility] N-Terminal, PROBNP, Plasma 67,730(H) 0 - 899 pg/mL 02/03/2023 7:49 AM EST [facility] Blood Venous blood specimen / Unknown Venipuncture / Unknown 02/03/2023 6:48 AM EST 02/03/2023 7:02 AM EST us Don Jeffries MD LAB BLOOD ORDERABLES Final R esult Performing Organization Address City/[facility] de Phone Number [facility]ALTH[facility]ARE [facility] [address] [place] [address] * (ABNORMAL) Procalcitonin (02/03/2023 6:48 AM EST) Pathologist [facility] Procalcitonin, Plasma 0.34(H) <0.09 ng/mL 02/03/2023 7:44 [...] predict 28 day mortality risk. Please consult [email or web address]-inu-mtcannvqni.com for more information. Test performed at [facility]. Don Jeffries MD LAB BLOOD ORDERABLES Final R [facility] Performing Organization Address City/[facility] Co de Phone Number HEALTHCARE [facility] [address] [place] [address] * (ABNORMAL) Troponin now and 120 min (02/03/2023 6:48 AM EST) Troponin T, High Sensitivity, 0 Hour 218(H) <19 ng/L 02/03/2023 7:42 AM EST [facility] Blood Venous blood specimen / Unknown Venipuncture / Unknown 02/03/2023 6:48 AM EST 02/03/2023 7:02 AM EST Don Jeffries MD LAB BLOOD ORDERABLES Final R esult Performing Organization Address City/[facility]/ZIP Co de Phone Number [facility] [address] [place] [address] * (ABNORMAL) Hemoglobin A1c (02/03/2023 6:48 AM EST) Hemoglobin A1c 6.6(H) <5.7 % 02/03/2023 7:24 AM EST [facility] Blood Venous blood specimen / Unknown Venipuncture / Unknown 02/03/2023 6:48 AM EST 02/03/2023 7:09 AM EST Narrative [facility] - 02/03/2023 7:24 AM EST HA1C Interpretive Data: Diagnosis of Diabetes: Diabetic > or = 6.5% Pre-diabetic 5.7 to 6.4% Non-diabetic < or = 5.6% Glycemic Targets for Type I and Type II Diabetics: Non- Adults <7.0% Adults <6.0% Children and Adolescents <7.5% Source: ??[place] [employer]. Standards of medical care in diabetes,2017. Diabetes Care.2017:40 (suppl 1):S1-S135. HbA1c assay performed by an ion-exchange chromatography method that is certified traceable to the DCCT. us Don Jeffries MD LAB BLOOD ORDERABLES Final R esult [facility] [address] [place] [address] * (ABNORMAL) Blood gas panel, venous (02/03/2023 6:48 AM EST) pH, Venous 7.26(L) 7.32 - 7.43 LAB HEMATOLOGY METHOD 02/03/2023 7:05 AM EST [facility] pCO2, Venous 54 40 - 55 mmHg LAB HEMATOLOGY METHOD 02/03/2023 7:05 AM EST [facility] pO2, Venous 29 25 - 40 mmHg LAB HEMATOLOGY METHOD 02/03/2023 7:05 AM EST [facility] SO2, Measured, Venous 39(L) 65 - 80 % LAB HEMATOLOGY METHOD 02/03/2023 7:05 AM EST [facility] Base Excess, Venous -3.3(L) -2.0 - 3.0 mmol/L LAB HEMATOLOGY METHOD 02/03/2023 7:05 AM EST [facility] Bicarbonate, Calculated, Venous 24 22 - 26 mmol/L LAB HEMATOLOGY METHOD 02/03/2023 7:05 AM EST [facility] Hematocrit, Whole Blood 39.9(L) 40.0 - 51.0 % LAB HEMATOLOGY METHOD 02/03/2023 7:05 AM EST [facility] Sodium, Whole Blood 141 136 - 145 mmol/L LAB HEMATOLOGY METHOD 02/03/2023 7:05 AM EST [facility] Potassium, Whole Blood 5.8(H) 3.6 - 4.9 mmol/L LAB HEMATOLOGY METHOD 02/03/2023 7:05 AM EST [facility] Chloride, Whole Blood 104 97 - 107 mmol/L LAB HEMATOLOGY METHOD 02/03/2023 7:05 AM EST [facility] Glucose, Whole Blood 208(H) 74 - 99 mg/dL LAB HEMATOLOGY METHOD 02/03/2023 7:05 AM EST [facility] Lactate, Venous, Whole Blood 2.1 0.5 - 2.2 mmol/L LAB HEMATOLOGY METHOD 02/03/2023 7:05 AM EST [facility] Ionized Calcium, Whole Blood 4.4(L) 4.6 - 5.1 mg/dL LAB HEMATOLOGY METHOD 02/03/2023 7:05 AM EST [facility] Blood Venous blood specimen / Unknown Venipuncture / Unknown 02/03/2023 6:48 AM EST 02/03/2023 7:02 AM EST us Don Jeffries MD LAB BLOOD ORDERABLES Final R esult Performing Organization Address City/[facility]/ZIP Co de Phone Number [facility] [address] [place] [address] * (ABNORMAL) Phosphorus (02/03/2023 6:48 AM EST) Phosphorus, Plasma 5.3(H) 2.5 - 4.5 mg/dL 02/03/2023 7:42 AM EST [facility] Blood Venous blood specimen / Unknown Venipuncture / Unknown 02/03/2023 6:48 AM EST 02/03/2023 7:02 AM EST us Don Jeffries MD LAB BLOOD ORDERABLES Final R esult [facility] [address] [place] [address] * Magnesium (02/03/2023 6:48 AM EST) Magnesium, Plasma 2.3 1.9 - 2.4 mg/dL 02/03/2023 7:42 AM EST [facility] Blood Venous blood specimen / Unknown Venipuncture / Unknown 02/03/2023 6:48 AM EST 02/03/2023 7:02 AM EST us Don Jeffries MD LAB BLOOD ORDERABLES Final R esult [facility] [address] [place] [address] * (ABNORMAL) CMP (02/03/2023 6:48 AM EST) Glucose, Plasma 227(H) 74 - 99 mg/dL 02/03/2023 7:42 AM EST [facility] BUN, Plasma 70(H) 7 - 21 mg/dL 02/03/2023 7:42 AM EST [facility] Creatinine, Plasma 3.61(H) 0.80 - 1.30 mg/dL 02/03/2023 7:42 AM EST [facility] BUN/Creatinine Ratio 19 02/03/2023 7:42 AM EST [facility] Sodium, Plasma 135(L) 136 - 145 mmol/L 02/03/2023 7:42 AM [facility] Potassium, Plasma 6.1(H) 3.7 - 4.8 mmol/L 02/03/2023 7:42 AM EST [facility] Chloride, Plasma 102 97 - 107 mmol/L 02/03/2023 7:42 AM [facility] CO2, Plasma 21(L) 22 - 29 mmol/L 02/03/2023 7:42 AM EST [facility] Anion Gap 12 6 - 16 mmol/L 02/03/2023 7:42 AM EST [facility] Total Calcium, Plasma 8.4(L) 8.9 - 10.2 mg/dL 02/03/2023 7:42 AM EST [facility] Total Protein 7.1 6.3 - 7.9 g/dL 02/03/2023 7:42 AM EST [facility] Albumin, Plasma 3.4(L) 3.5 - 5.2 g/dL 02/03/2023 7:42 AM EST [facility] AST, Plasma 43 10 - 50 U/L 02/03/2023 7:42 AM EST [facility] ALT, Plasma 19 10 - 50 U/L 02/03/2023 7:42 AM EST [facility] Alkaline Phosphatase, Plasma 137(H) 40 - 115 U/L 02/03/2023 7:42 AM [facility] Total Bilirubin, Plasma 0.3 0.2 - 1.1 mg/dL 02/03/2023 7:42 AM EST [facility] eGFRcr 19.0 mL/min/1.7 3m*2 02/03/2023 7:42 AM EST [facility] Comment:Reported eGFRcr in m L/min/1.73m2 is based the CKD-EPI 2020 equation that does not use a race coefficient. Blood Venous blood specimen / Unknown Venipuncture / Unknown 02/03/2023 6:48 AM EST 02/03/2023 7:02 AM EST us Don Jeffries MD LAB BLOOD ORDERABLES Final R esult Performing Organization Address City/State/[facility] Co de Phone Number [facility] [address] [place] [phone] * (ABNORMAL) CBC w/diff (02/03/2023 6:48 AM EST) WBC Count 17.93(H) 3.70 - 10.30 10*3/uL LAB HEMATOLOGY METHOD 02/03/2023 7:05 AM EST [facility] RBC Count 4.55(L) 4.60 - 6.10 10*6/uL LAB HEMATOLOGY METHOD 02/03/2023 7:05 AM EST [facility] HGB 12.9(L) 13.7 - 17.5 g/dL LAB HEMATOLOGY METHOD 02/03/2023 7:05 AM EST [facility] HCT 41.0 40.0 - 51.0 % LAB HEMATOLOGY METHOD 02/03/2023 7:05 AM EST [facility] Platelet Count 249 155 - 369 10*3/uL LAB HEMATOLOGY METHOD 02/03/2023 7:05 AM EST [facility] MCV 90 79 - 98 fL LAB HEMATOLOGY METHOD 02/03/2023 7:05 AM EST [facility] MCH 28.4 26.0 - 32.0 pg LAB HEMATOLOGY METHOD 02/03/2023 7:05 AM EST [facility] MCHC 31.5 30.7 - 35.5 g/dL LAB HEMATOLOGY METHOD 02/03/2023 7:05 AM EST [facility] RDW 14.4 11.5 - 14.5 % LAB HEMATOLOGY METHOD 02/03/2023 7:05 AM EST [facility] MPV 11.0 8.8 - 12.5 fL LAB HEMATOLOGY METHOD 02/03/2023 7:05 AM EST [facility] nRBC 0.0 <=0.0 per 100 WBCs LAB HEMATOLOGY METHOD 02/03/2023 7:05 AM EST [facility] Differential Type Automated LAB HEMATOLOGY METHOD 02/03/2023 7:05 AM EST [facility] Neutrophils % 91.0 % LAB HEMATOLOGY METHOD 02/03/2023 7:05 AM EST [facility] Lymphocytes % 5.0 % LAB HEMATOLOGY METHOD 02/03/2023 7:05 AM EST [facility] Monocytes % 3.0 % LAB HEMATOLOGY METHOD 02/03/2023 7:05 AM EST [facility] Eosinophils % 0.0 % LAB HEMATOLOGY METHOD 02/03/2023 7:05 AM EST [facility] Basophils % 0.0 % LAB HEMATOLOGY METHOD 02/03/2023 7:05 AM [facility] Immature Granulocytes % 1.0 % LAB HEMATOLOGY METHOD 02/03/2023 7:05 AM EST [facility] Neutrophils Absolute 16.39(H) 1.60 - 6.10 10*3/uL LAB HEMATOLOGY METHOD 02/03/2023 7:05 AM [facility] Lymphocytes Absolute 0.85(L) 1.20 - 3.90 10*3/uL LAB HEMATOLOGY METHOD 02/03/2023 7:05 AM EST [facility] Monocytes Absolute 0.58 0.30 - 0.90 10*3/uL LAB HEMATOLOGY METHOD 02/03/2023 7:05 AM EST [facility] Eosinophils Absolute 0.00 0.00 - 0.50 10*3/uL LAB HEMATOLOGY METHOD 02/03/2023 7:05 AM EST [facility] Basophils Absolute 0.02 0.00 - 0.10 10*3/uL LAB HEMATOLOGY METHOD 02/03/2023 7:05 AM [facility] Immature Granulocytes Absolute 0.09(H) 0.00 - 0.06 10*3/uL LAB HEMATOLOGY METHOD 02/03/2023 7:05 AM [facility] Blood Venous blood specimen / Unknown Venipuncture / Unknown 02/03/2023 6:48 AM EST 02/03/2023 7:02 AM EST [facility] - 02/03/2023 7:05 AM EST Therapeutic decision making should be based on absolute values, rather than percentages. us Don Jeffries MD LAB BLOOD ORDERABLES Final R esult Performing Organization Address City/[facility] Co de Phone Number [facility] [address] [place] [address] * ECG Adult (02/03/2023 6:42 AM EST) EKG DIAGNOSIS CLASS Abnormal MUSE ECG Ventricular Rate 85 BPM MUSE ECG Atrial Rate 85 BPM MUSE ECG ND Interval 146 ms MUSE ECG QRSD Interval 100 ms MUSE ECG QT Interval 398 ms MUSE ECG QTC Interval 473 ms MUSE ECG P [place] 50 degrees MUSE ECG R [place] 5 degrees MUSE ECG T Wave [place] 177 degrees MUSE ECG Diagnosis Normal sinus rhythm MUSE ECG Diagnosis ST & MUSE ECG Diagnosis T wave abnormality, consider inferior ischemia MUSE ECG Diagnosis ST & MUSE ECG Diagnosis T wave abnormality, consider anterolateral ischemia MUSE ECG Diagnosis Borderline QT interval MUSE ECG Diagnosis Abnormal ECG MUSE ECG Diagnosis Need clinical information and correlation MUSE ECG Diagnosis Confirmed by Fortunato Fernandez ([id number]) on 02/03/2023 9:07:45 AM MUSE ECG 02/03/2023 6:42 AM EST 02/03/2023 9:07 AM EST us Don Jeffries MD ECG ORDERABLES Final Result Performing Organization Address [facility] de Phone Number MUSE ECG * [facility] ED POCUS PROCDOC (02/03/2023 6:29 AM [...] 02/06/2023 2:47 PM EST 12.5 mg Tiotropium [place] Monohydrate (Spiriva Respimat) 2.5 MCG/ACT inhaler 2 [...] Oral, 2 times daily, First dose on [facility] 02/06/23 at 1445, Until Discontinued, Routine [...] (Given - Provider: Guillermina Chamberlain RN) Tiotropium [place] Monohydrate (Spiriva Respimat) 2.5 MCG/ACT inhaler 2 [...] Provider: Lia Nelson)[id number] (Given - Provider: Guillermina Chambelrain RN) 0801 (Given - Provider: Radha Crowley) [...] documented as of this encounter Care Teams Jordan Worker Relationship Specialty Start Date End Date Terence Ring [facility] [place] [address] PCP - General 08/09/20 03/23/23 documented as of this encounter
--- OUTSIDE RECORDS SUMMARY | 2024-02-24 15:33 | XMS_ITS | Encounter Summary ---
Author Organization [facility] Address [address] [place] [address] Care Team Providers Care Application Support Engineer Name Role Phone Terence Ring Primary Care Provider [phone] Encounter Details Date Type Department Care Team [...] Description 03/07/2024 1:40 PM EST Office Visit [facility] [place] [address], [address] [place] [address] Naeem Blunt MD [address] [place] [address] documented as of this encounter Visit Diagnoses Not on filedocumented in this encounter Additional Health Concerns Infection Onset Date Last Indicated Resolved Time MRSA Comment:Positive blood culture 03/03/2019 01/30/2024 documented as of this encounter Care Teams Application Support Engineer Relationship Specialty Start Date End Date Terence Ring [facility] [employer] [place] [address] PCP - General 08/09/20 03/23/23 documented as of this encounter
--- OUTSIDE RECORDS SUMMARY | 2024-02-24 15:33 | XMS_ITS | Encounter Summary ---
Author Organization [facility] Address [address] [place] [address] Care Team Providers Care Service Technician Copier Name Role Phone Jhonathan Terence Covarrubias Primary Care Provider [phone] Encounter Details Date Type Department Care Team [...] first t erin in the morning (EYE-DIRECTOR POWER) to steady your nerves or to get [...] Description 03/07/2024 1:40 PM EST Office Visit [facility] [place] [address], [address] [place] [address] Naeem Blunt MD [address] [place] [address] documented as of this encounter Visit Diagnoses Not on filedocumented in this encounter Additional Health Concerns Infection Onset Date Last Indicated Resolved Time MRSA Comment:Positive blood culture 03/03/2019 01/30/2024 Assessment Noted Time A Body Mass Index follow-up plan has been documented for the patient 02/12/2023 12:32 PM EST documented as of this encounter Care Teams Service Technician Copier Relationship Specialty Start Date End Date Terence Ring [address] [place], [place] [id number] PCP - General 08/09/20 03/23/23 documented as of this encounter
--- OUTSIDE RECORDS SUMMARY | 2024-02-24 15:33 | XMS_ITS | Encounter Summary ---
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 Outpatient Therapy [address] [place] [address] Phone: tel: fax: Referral ID Status Reason Start Date Expiration Date V isits Requested Visits Authorized [id number] Closed Specialty Services Required 03/06/2022 10/30/2022 1 44 Encounter Details Date Type Department Care Team (Latest Contact Info) Description 10/02/2022 9:10 AM EDT - 10/02/2022 11:59 PM EDT Hospital Encounter 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
--- OUTSIDE RECORDS SUMMARY | 2024-02-24 15:33 | XMS_ITS | Encounter Summary ---
Author Organization [facility] Address [address] [place] [address] Care Team Providers Care Computer Information Systems Professor Name Role Phone Terence Ring Primary Care [...] Description 03/07/2024 1:40 PM EST Office Visit [facility] [place] [address] [facility], [address] [place] [address] Naeem Blunt MD [address] [place] [address] documented as of this encounter Visit Diagnoses Not on filedocumented in this encounter Additional Health Concerns Infection Onset Date Last Indicated Resolved Time MRSA Comment:Positive blood culture 03/03/2019 01/30/2024 documented as of this encounter Care Teams Computer Information Systems Professor Relationship Specialty Start Date End Date Terence Ring [facility] [place] [address] PCP - General 08/09/20 03/23/23 documented as of this encounter
--- OUTSIDE RECORDS SUMMARY | 2024-02-24 15:33 | XMS_ITS | Encounter Summary ---
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) Impaired mobility Ajay Goddard MD [address] [facility] [address] [place] [address] Phone: tel: fax: [facility] Outpatient Therapy [address] [place] [address] Phone: tel: fax: Referral ID Status Reason Start Date Expiration Date V isits Requested Visits Authorized [id number] Closed Specialty Services Required 03/06/2022 10/30/2022 1 44 Encounter Details Date Type Department Care Team (Latest Contact Info) Description 09/23/2022 8:46 AM EDT - 09/23/2022 11:59 PM EDT Hospital Encounter [facility] Outpatient Therapy [address] [place] [address] Madelyn Ovalles Acquired absence of [...] Madelyn Ovalles - 09/23/2022 9:45 AM EDT [facility] Daily Note [...] crowds. All ambulation performed in center of critical access hospital with increased anxiety without taylor being nearby. [...] Upcoming Encounters Date Type Department Care Team ([facility] st Contact Info) Description 03/07/2024 1:40 PM EST Office Visit [facility] [place] [address] 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
--- OUTSIDE RECORDS SUMMARY | 2024-02-24 15:33 | XMS_ITS | Encounter Summary ---
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) Impaired mobility Ajay Goddard MD [address] [facility] [address] [place] [address] Phone: tel: fax: [facility] Outpatient Therapy [address] [place] [address] Phone: tel: fax: Referral ID Status Reason Start Date Expiration Date V isits Requested Visits Authorized [id number] Closed Specialty Services Required 03/06/2022 10/30/2022 1 44 Encounter Details Date Type Department Care Team (Latest Contact Info) Description 09/18/2022 8:47 AM EDT - 09/18/2022 11:59 PM EDT Hospital Encounter [facility] Outpatient Therapy [address] [place] [address] Madelyn Ovalles Acquired absence of [...] Madelyn Ovalles - 09/18/2022 9:45 AM EDT [facility] Orthopedic Rehabilitation Daily Note Name: [...] Upcoming Encounters Date Type Department Care Team ([facility] st Contact Info) Description 03/07/2024 1:40 PM EST Office Visit [facility] [place] [address] [facility], [address] [place] [address] Naeem Blunt MD [address] [place] [address] documented as of this encounter Visit Diagnoses Diagnosis 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
--- OUTSIDE RECORDS SUMMARY | 2024-02-24 15:33 | XMS_ITS | Encounter Summary ---
Author Organization [facility] Address [address] [place] [address] Care Team Providers Care Ranch Rider Name Role Phone Terence Ring Primary Care Provider [phone] Encounter Details Date Type Department Care Team [...] Description 03/07/2024 1:40 PM EST Office Visit [facility] [place] [address] [facility], [address] [place] [address] Naeem Blunt MD [address] [place] [address] documented as of this encounter Visit Diagnoses Not on filedocumented in this encounter Additional Health Concerns Infection Onset Date Last Indicated Resolved Time MRSA Comment:Positive blood culture 03/03/2019 01/30/2024 documented as of this encounter Care Teams Ranch Rider Relationship Specialty Start Date End Date Terence Ring [facility] [place] [address] PCP - General 08/09/20 03/23/23 documented as of this encounter
--- OUTSIDE RECORDS SUMMARY | 2024-02-24 15:33 | XMS_ITS | Encounter Summary ---
Author Organization [facility] Address [address] [place] [address] Care Team Providers Care Integrated Campaign Manager Name Role Phone Terence Ring Primary Care Provider [phone] Encounter Details Date Type Department Care Team (Late st Contact Info) Description 02/03/2023 Orders Only External Location [address] [place] [address] Provider, External Social History Tobacco Use Types [...] first t erin in the morning (EYE-CUTTER AND PASTER PRESS CLIPPINGS) to steady your nerves or to get [...] Description 03/07/2024 1:40 PM EST Office Visit [facility] [place] [address] [facility], [address] [place] [address] Naeem Blunt MD [address] [place] [address] documented as of this [...] documented as of this encounter Care Teams Integrated Campaign Manager Relationship Specialty Start Date End Date Terence Ring [facility] [place] [address] PCP - General 08/09/20 03/23/23 documented as of this encounter
--- OUTSIDE RECORDS SUMMARY | 2024-02-24 15:33 | XMS_ITS | Encounter Summary ---
Author Organization [facility] Address [address] [place] [address] Care Team Providers Care Choral Teacher Name Role Phone Jhonathan Terence Covarrubias Primary Care Provider [phone] Encounter Details Date Type Department Care Team [...] place to sleep or slept in a detention (including now)? No 02/05/2023 CAGE ASSESSMENT Answer [...] Description 03/07/2024 1:40 PM EST Office Visit [facility] [place] [address] [facility], [address] [place] [address] Naeem Blunt MD [address] [place] [address] documented as of this encounter Visit Diagnoses Not on filedocumented in this encounter Additional Health Concerns Infection Onset Date Last Indicated Resolved Time MRSA Comment:Positive blood culture 03/03/2019 01/30/2024 Assessment Noted Time A Body Mass Index follow-up plan has been documented for the patient 02/12/2023 12:32 PM EST documented as of this encounter Care Teams Choral Teacher Relationship Specialty Start Date End Date Terence Ring [address] [place], [place] [id number] PCP - General 08/09/20 03/23/23 documented as of this encounter
--- OUTSIDE RECORDS SUMMARY | 2024-02-24 15:33 | XMS_ITS | Encounter Summary ---
Author Organization [facility] Address [address] [place] [address] Care Team Providers Care Corporation Secretary Name Role Phone Terence Ring Primary Care Provider [phone] Reason for Visit * Reason Onset Date Comments Therapy 10/09/2022 Left voicemail f or patient reminding him he has no appointment scheduled for Wednesday and that if he wants to come in for his last appointment, he is scheduled for 10/14 at 9:45. Encounter Details Date Type Department Care Team (Late st Contact Info) Description 10/09/2022 Telephone External Location [address] [place] [address] Pcp, No [address] [place] [address] Therapy (Left voicemail for patient reminding him [...] Description 03/07/2024 1:40 PM EST Office Visit [facility] [place] [address] [facility], [address] [place] [address] Naeem Blunt MD [address] [place] [address] documented as of this encounter Visit Diagnoses Not on filedocumented in this encounter Additional Health Concerns Infection Onset Date Last Indicated Resolved Time MRSA Comment:Positive blood culture 03/03/2019 01/30/2024 documented as of this encounter Care Teams Corporation Secretary Relationship Specialty Start Date End Date Terence Ring [address] [place] [address] PCP - General 08/09/20 03/23/23 documented as of this encounter
--- OUTSIDE RECORDS SUMMARY | 2024-02-24 15:33 | XMS_ITS | Encounter Summary ---
Author Organization [facility] Address [address] [place] [address] Care Team Providers Care Teacher Adult Education Name Role Phone Terence Ring Primary Care Provider [phone] Encounter Details Date Type Department Care Team (Late st Contact Info) Description 02/01/2023 Orders Only External Location [address] [place] [address] Provider, External Social History Tobacco Use Types [...] slept in a alf (including now)? No 02/05/2023 CAGE ASSESSMENT Answer [...] drink first t erin in the morning (EYE-OPTICAL COATING TECHNICIAN) to steady your nerves or to get [...] Description 03/07/2024 1:40 PM EST Office Visit [facility] [place] [address] [facility], [address] [place] [address] Naeem Blunt MD [address] [place] [address] documented as of this encounter Procedures Procedure Name Priority Date/Time Associated Diagnosis Comments XR OUTSIDE IMAGES 02/01/2023 7:29 AM EST documented in this encounter Results * XR OUTSIDE IMAGES (02/01/2023 7:29 AM EST) Anatomical Region Laterality Modality Radiographic Adroe ging 02/01/2023 7:29 AM EST us External [...] documented as of this encounter Care Teams Teacher Adult Education Relationship Specialty Start Date End Date Terence Ring [facility] [place] [address] PCP - General 08/09/20 03/23/23 documented as of this encounter
--- OUTSIDE RECORDS SUMMARY | 2024-02-24 15:33 | XMS_ITS | Encounter Summary ---
Author Organization [facility] Address [address] [place] [address] Care Team Providers Care Farmhand Name Role Phone Jhonathan Terence Covarrubias Primary Care Provider [phone] Encounter Details Date Type Department Care Team [...] drink first t erin in the morning (EYE-GRADE TAMPER) to steady your nerves or to get [...] Description 03/07/2024 1:40 PM EST Office Visit [facility] [place] [address] [facility], [address] [place] [address] Naeem Blunt MD [address] [place] [address] documented as of this encounter Visit Diagnoses Not on filedocumented in this encounter Additional Health Concerns Infection Onset Date Last Indicated Resolved Time MRSA Comment:Positive blood culture 03/03/2019 01/30/2024 Assessment Noted Time A Body Mass Index follow-up plan has been documented for the patient 02/12/2023 12:32 PM EST documented as of this encounter Care Teams Farmhand Relationship Specialty Start Date End Date Terence Ring [address] [place], [place] [id number] PCP - General 08/09/20 03/23/23 documented as of this encounter
--- OUTSIDE RECORDS SUMMARY | 2024-02-24 15:33 | XMS_ITS | Encounter Summary ---
Author Organization [facility] Address [address] [place] [address] Care Team Providers Care Wire Spiral Binder Name Role Phone Terence Ring Primary Care Provider [phone] Encounter Details Date Type Department Care Team [...] Description 03/07/2024 1:40 PM EST Office Visit [facility] [place] [address] [facility], [address] [place] [address] Naeem Blunt MD [address] [place] [address] documented as of this encounter Visit Diagnoses Not on filedocumented in this encounter Additional Health Concerns Infection Onset Date Last Indicated Resolved Time MRSA Comment:Positive blood culture 03/03/2019 01/30/2024 documented as of this encounter Care Teams Wire Spiral Binder Relationship Specialty Start Date End Date Terence Ring [facility] [place] [address] PCP - General 08/09/20 03/23/23 documented as of this encounter
--- OUTSIDE RECORDS SUMMARY | 2024-02-24 15:33 | XMS_ITS | Encounter Summary ---
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) Impaired mobility Ajay Goddard MD [address] [facility] [address] [place] [address] Phone: tel: fax: [facility] Outpatient Therapy [address] [place] [address] Phone: tel: fax: Referral ID Status Reason Start Date Expiration Date V isits Requested Visits Authorized [id number] Closed Specialty Services Required 03/06/2022 10/30/2022 1 44 Encounter Details Date Type Department Care Team (Latest Contact Info) Description 09/30/2022 8:33 AM EDT - 09/30/2022 11:59 PM EDT Hospital Encounter [facility] Outpatient Therapy [address] [place] [address] Madelyn Ovalles Acquired absence of [...] Madelyn Ovalles - 09/30/2022 9:45 AM EDT [facility] [...] Description 03/07/2024 1:40 PM EST Office Visit [facility] [place] [address] [facility], [address] [place] [address] Naeem Blunt MD [address] [place] [address] documented as of this encounter Visit Diagnoses Diagnosis 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
--- OUTSIDE RECORDS SUMMARY | 2024-02-24 15:33 | XMS_ITS | Encounter Summary ---
Author Organization [facility] Address [address] [place] [address] Care Team Providers Care Consumer Electronic Retail Specialist Name Role Phone Terence Ring Primary Care Provider [phone] Encounter Details Date Type Department Care Team (Late Contact Info) Description 10/07/2022 Telephone [facility] Outpatient Therapy [address] [place] [address] Madelyn Ovalles Social History Tobacco [...] Upcoming Encounters Date Type Department Care Team ([facility] Contact Info) Description 03/07/2024 1:40 PM EST Office Visit [facility] [place] [address] [facility], [address] [place] [address] Naeem Blunt MD [address] [place] [address] documented as of this encounter Visit Diagnoses Not on filedocumented in this encounter Additional Health Concerns Infection Onset Date Last Indicated Resolved Time MRSA Comment:Positive blood culture 03/03/2019 01/30/2024 documented as of this encounter Care Teams Consumer Electronic Retail Specialist Relationship Specialty Start Date End Date Terence Ring [facility] [place] [address] PCP - General 08/09/20 03/23/23 documented as of this encounter
--- OUTSIDE RECORDS SUMMARY | 2024-02-24 15:33 | XMS_ITS | Encounter Summary ---
Author Organization [facility] Address [address] [place] [address] Care Team Providers Care Hot Mill Operator Name Role Phone Terence Ring Primary Care Provider [phone] Encounter Details Date Type Department Care Team [...] Description 03/07/2024 1:40 PM EST Office Visit [facility] [place] [address] [facility], [address] [place] [address] Naeem Blunt MD [address] [place] [address] documented as of this encounter [...] as of this encounter Care Teams Hot Mill Operator Relationship Specialty Start Date End Date Terence Ring [address] [place], [place] [id number] PCP - General 08/09/20 03/23/23 documented as of this encounter
--- OUTSIDE RECORDS SUMMARY | 2024-02-24 15:34 | XMS_ITS | Encounter Summary ---
Author Organization [facility] Address [address] [place] [address] Care Team Providers Care Ornamental Machine Operator Name Role Phone Terence Ring Primary Care Provider [phone] Encounter Details Date Type Department Care Team [...] Description 03/07/2024 1:40 PM EST Office Visit [facility] [place] [address] [facility], [address] [place] [address] Naeem Blunt MD [address] [place] [address] documented as of this encounter Visit Diagnoses Not on filedocumented in this encounter Additional Health Concerns Infection Onset Date Last Indicated Resolved Time MRSA Comment:Positive blood culture 03/03/2019 01/30/2024 documented as of this encounter Care Teams Ornamental Machine Operator Relationship Specialty Start Date End Date Terence Ring [facility] [place] [address] PCP - General 08/09/20 03/23/23 documented as of this encounter
--- OUTSIDE RECORDS SUMMARY | 2024-02-24 15:34 | XMS_ITS | Encounter Summary ---
Author Organization [facility] Address [address] [place] [address] Care Team Providers Care Sane Rn Name Role Phone Terence Ring Primary Care Provider [phone] Encounter Details Date Type Department Care Team [...] Description 03/07/2024 1:40 PM EST Office Visit [facility] [place] [address] [facility], [address] [place] [address] Naeem Blunt MD [address] [place] [address] documented as of this encounter Visit Diagnoses Not on filedocumented in this encounter Additional Health Concerns Infection Onset Date Last Indicated Resolved Time MRSA Comment:Positive blood culture 03/03/2019 01/30/2024 documented as of this encounter Care Teams Sane Rn Relationship Specialty Start Date End Date Terence Ring [facility] [place] [address] PCP - General 08/09/20 03/23/23 documented as of this encounter
--- OUTSIDE RECORDS SUMMARY | 2024-02-24 15:34 | XMS_ITS | Encounter Summary ---
Author Organization [facility] Address [address] [place] [address] Care Team Providers Care Medical Lab Scientist Name Role Phone Terence Ring Primary Care Provider [phone] Encounter Details Date Type Department Care Team [...] Description 03/07/2024 1:40 PM EST Office Visit [facility] [place] [address] [facility], [address] [place] [address] Naeem Blunt MD [address] [place] [address] documented as of this encounter Visit Diagnoses Not on filedocumented in this encounter Additional Health Concerns Infection Onset Date Last Indicated Resolved Time MRSA Comment:Positive blood culture 03/03/2019 01/30/2024 documented as of this encounter Care Teams Medical Lab Scientist Relationship Specialty Start Date End Date Terence Ring [facility] [place] [address] PCP - General 08/09/20 03/23/23 documented as of this encounter
--- OUTSIDE RECORDS SUMMARY | 2024-02-24 15:34 | XMS_ITS | Encounter Summary ---
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 [address] [place] [address] Phone: tel: fax: [facility] Outpatient Therapy [address] [place] [address] Phone: tel: fax: Referral ID Status Reason Start Date Expiration Date V isits Requested Visits Authorized [id number] Closed Specialty Services Required 03/06/2022 10/30/2022 1 44 Encounter Details Date Type Department Care Team (Latest Contact Info) Description 09/11/2022 9:13 AM EDT - 09/11/2022 11:59 PM EDT Hospital Encounter [facility] Outpatient Therapy [address] [place] [address] Madelyn Ovalles Acquired absence of [...] Madelyn Ovalles - 09/11/2022 9:45 AM EDT [facility] [...] Description 03/07/2024 1:40 PM EST Office Visit [facility] [place] [address] [facility], [address] [place] [address] Naeem Blunt MD [address] [place] [address] documented as of this encounter Visit Diagnoses Diagnosis 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
--- OUTSIDE RECORDS SUMMARY | 2024-02-24 15:34 | XMS_ITS | Encounter Summary ---
Author Organization [facility] Address [address] [place] [address] Care Team Providers Care Production Machine Shop Supervisor Name Role Phone Terence Ring Primary Care Provider [phone] Encounter Details Date Type Department Care Team [...] Description 03/07/2024 1:40 PM EST Office Visit [facility] [place] [address] [facility], [address] [place] [address] Naeem Blunt MD [address] [place] [address] documented as of this encounter Visit Diagnoses Not on filedocumented in this encounter Additional Health Concerns Infection Onset Date Last Indicated Resolved Time MRSA Comment:Positive blood culture 03/03/2019 01/30/2024 documented as of this encounter Care Teams Production Machine Shop Supervisor Relationship Specialty Start Date End Date Terence Ring [facility] [place] [address] PCP - General 08/09/20 03/23/23 documented as of this encounter
--- OUTSIDE RECORDS SUMMARY | 2024-02-24 15:34 | XMS_ITS | Encounter Summary ---
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) Impaired mobility Ajya Goddard MD [address] [facility] [address] [place] [address] Phone: tel: fax: [facility] Outpatient Therapy [address] [place] [address] Phone: tel: fax: Referral ID Status Reason Start Date Expiration Date V isits Requested Visits Authorized [id number] Closed Specialty Services Required 03/06/2022 10/30/2022 1 44 Encounter Details Date Type Department Care Team (Latest Contact Info) Description 06/10/2022 9:34 AM EDT - 06/10/2022 11:59 PM EDT Hospital Encounter [facility] Outpatient Therapy [address] [place] [address] Madelyn Ovalles Acquired absence of [...] Madelyn Ovalles - 06/10/2022 9:45 AM EDT [facility] PT 30 Day Progress [...] Placement from [employer] CHOLECYSTECTOMY N/A Cholecystectomy from [employer] SUBJECTIVE Patient reports that his blood sugars [...] balance, and functional mobility training. Primary Language: Nigerian Needs communication device: No Does the patient understand basic information? Yes, able to self manage. Barriers to learning: None Cultural/Sabianism beliefs: None that will affect treatment Rehab Potential/Prognosis: Good Personal Factors/Comorbidities Affecting Care: Pre-Injury Condition , Prior history of condition, and Fear avoidance behavior Complexity: Moderate Complexity using Standard PT Assessment (61710) PLAN Patient to be seen 2 times [...] 1 Upper Extremity assist for ADL's. 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
--- OUTSIDE RECORDS SUMMARY | 2024-02-24 15:34 | XMS_ITS | Encounter Summary ---
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) Impaired mobility Ajay Goddard MD [address] [facility] [address] [place] [address] Phone: tel: fax: [facility] Outpatient Therapy [address] [place] [address] Phone: tel: fax: Referral ID Status Reason Start Date Expiration Date V isits Requested Visits Authorized [id number] Closed Specialty Services Required 03/06/2022 10/30/2022 1 44 Encounter Details Date Type Department Care Team (Latest Contact Info) Description 07/17/2022 9:29 AM EDT - 07/17/2022 11:59 PM EDT Hospital Encounter [facility] Outpatient Therapy [address] [place] [address] Madelyn Ovalles Acquired absence of [...] Madelyn Ovalles - 07/17/2022 9:45 AM EDT [facility] Orthopedic Rehabilitation Daily Note Name: [...] Description 03/07/2024 1:40 PM EST Office Visit [facility] [place] [address] [facility], [address] [place] [address] Naeem Blunt MD [address] [place] [address] documented as of this encounter Visit Diagnoses Diagnosis 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
--- OUTSIDE RECORDS SUMMARY | 2024-02-24 15:34 | XMS_ITS | Encounter Summary ---
Author Organization [facility] Address [address] [place] [address] Care Team Providers Care Ladle Cleaner Name Role Phone Terence Ring Primary [...] Description 03/07/2024 1:40 PM EST Office Visit [facility] [place] [address] [facility], [address] [place] [address] Naeem Blunt MD [address] [place] [address] documented as of this encounter Visit Diagnoses Not on filedocumented in this encounter Additional Health Concerns Infection Onset Date Last Indicated Resolved Time MRSA Comment:Positive blood culture 03/03/2019 01/30/2024 documented as of this encounter Care Teams Ladle Cleaner Relationship Specialty Start Date End Date Terence Ring [facility] [employer] [place] [address] PCP - General 08/09/20 03/23/23 documented as of this encounter
--- OUTSIDE RECORDS SUMMARY | 2024-02-24 15:34 | XMS_ITS | Encounter Summary ---
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) Impaired mobility Ajay Goddard MD [address] [facility] [address] [place] [address] Phone: tel: fax: [facility] Outpatient Therapy [address] [place] [address] Phone: tel: fax: Referral ID Status Reason Start Date Expiration Date V isits Requested Visits Authorized [id number] Closed Specialty Services Required 03/06/2022 10/30/2022 1 44 Encounter Details Date Type Department Care Team (Latest Contact Info) Description 07/15/2022 9:29 AM EDT - 07/15/2022 11:59 PM EDT Hospital Encounter [facility] Outpatient Therapy [address] [place] [address] Madelyn Ovalles Acquired absence of [...] Madelyn Ovalles - 07/15/2022 9:45 AM EDT [facility] [...] Description 03/07/2024 1:40 PM EST Office Visit [facility] [place] [address] [facility], [address] [place] [address] Naeem Blunt MD [address] [place] [address] documented as of this encounter Visit Diagnoses Diagnosis 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
--- OUTSIDE RECORDS SUMMARY | 2024-02-24 15:34 | XMS_ITS | Encounter Summary ---
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) Impaired mobility Ajay Goddard MD [address] [facility] [address] [place] [address] Phone: tel: fax: [facility] Outpatient Therapy [address] [place] [address] Phone: tel: fax: Referral ID Status Reason Start Date Expiration Date V isits Requested Visits Authorized [id number] Closed Specialty Services Required 03/06/2022 10/30/2022 1 44 Encounter Details Date Type Department Care Team (Latest Contact Info) Description 06/05/2022 9:10 AM EST - 06/05/2022 11:59 PM [facility] Hospital Encounter [facility] Outpatient Therapy [address] [place] [address] Madelyn Ovalles Acquired absence of [...] Madelyn Ovalles - 06/05/2022 9:45 AM EST [facility] Rehabilitation Daily Note Name: Buzz Hurley [...] Zero-G training today, held gait training with [facility] in [facility] due to fatigue. PLAN Mr. 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
--- OUTSIDE RECORDS SUMMARY | 2024-02-24 15:34 | XMS_ITS | Encounter Summary ---
Author Organization [facility] Address [address] [place] [address] Care Team Providers Care Unit Leader Name Role Phone Terence Ring Primary Care Provider [phone] Encounter Details Date Type Department Care Team (Late Contact Info) Description 07/24/2022 Telephone [facility] Outpatient Therapy [address] [place] [address] Silvio Pryor Social History Tobacco [...] Description 03/07/2024 1:40 PM EST Office Visit [facility] [place] [address], [address] [place] [address] Naeem Blunt MD [address] [place] [address] documented as of this encounter Visit Diagnoses Not on filedocumented in this encounter Additional Health Concerns Infection Onset Date Last Indicated Resolved Time MRSA Comment:Positive blood culture 03/03/2019 01/30/2024 documented as of this encounter Care Teams Unit Leader Relationship Specialty Start Date End Date Terence Ring [address] [place] [address] PCP - General 08/09/20 03/23/23 documented as of this encounter
--- OUTSIDE RECORDS SUMMARY | 2024-02-24 15:34 | XMS_ITS | Encounter Summary ---
Author Organization [facility] Address [address] [place] [address] Care Team Providers Care Test Car Driver Name Role Phone Terence Ring Primary Care Provider [phone] Encounter Details Date Type Department Care Team ([facility] Contact Info) Description 08/07/2022 Telephone [facility] Outpatient Therapy [address] [place] [address] Madelyn Ovalles Social History Tobacco [...] Upcoming Encounters Date Type Department Care Team ([facility] Contact Info) Description 03/07/2024 1:40 PM EST Office Visit [facility] [place] [address] [facility], [address] [place] [address] Naeem Blunt MD [address] [place] [address] documented as of this encounter Visit Diagnoses Not on filedocumented in this encounter Additional Health Concerns Infection Onset Date Last Indicated Resolved Time MRSA Comment:Positive blood culture 03/03/2019 01/30/2024 documented as of this encounter Care Teams Test Car Driver Relationship Specialty Start Date End Date Terence Ring [facility] [place] [address] PCP - General 08/09/20 03/23/23 documented as of this encounter
--- OUTSIDE RECORDS SUMMARY | 2024-02-24 15:34 | XMS_ITS | Encounter Summary ---
Author Organization [facility] Address [address] [place] [address] Care Team Providers Care Metallurgical Inspector Name Role Phone Terence Ring Primary Care Provider [phone] Encounter Details Date Type Department Care Team [...] Description 03/07/2024 1:40 PM EST Office Visit [facility] [place] [address] [facility], [address] [place] [address] Naeem Blunt MD [address] [place] [address] documented as of this encounter Visit Diagnoses Not on filedocumented in this encounter Additional Health Concerns Infection Onset Date Last Indicated Resolved Time MRSA Comment:Positive blood culture 03/03/2019 01/30/2024 documented as of this encounter Care Teams Metallurgical Inspector Relationship Specialty Start Date End Date Terence Ring [facility] [address] PCP - General 08/09/20 03/23/23 documented as of this encounter
--- OUTSIDE RECORDS SUMMARY | 2024-02-24 15:34 | XMS_ITS | Encounter Summary ---
Author Organization [facility] Address [address] [place] [address] Care Team Providers Care Singeing Torch Operator Name Role Phone Terence Ring Primary Care Provider [phone] Encounter Details Date Type Department Care Team [...] 03/07/2024 1:40 PM EST Office Visit [facility] [place] [address] [facility], [address] [place] [address] Naeem Blunt MD [address] [place] [address] documented as of this encounter Visit Diagnoses Not on filedocumented in this encounter Additional Health Concerns Infection Onset Date Last Indicated Resolved Time MRSA Comment:Positive blood culture 03/03/2019 01/30/2024 documented as of this encounter Care Teams Singeing Torch Operator Relationship Specialty Start Date End Date Terence Ring [facility] [place] [address] PCP - General 08/09/20 03/23/23 documented as of this encounter
--- OUTSIDE RECORDS SUMMARY | 2024-02-24 15:34 | XMS_ITS | Encounter Summary ---
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 [address] [place] [address] Phone: tel: fax: [facility] Outpatient Therapy [address] [place] [address] Phone: tel: fax: Referral ID Status Reason Start Date Expiration Date V isits Requested Visits Authorized [id number] Closed Specialty Services Required 03/06/2022 10/30/2022 1 44 Encounter Details Date Type Department Care Team (Latest Contact Info) Description 08/21/2022 9:00 AM EDT - 08/21/2022 11:59 PM EDT Hospital Encounter [facility] Outpatient Therapy [address] [place] [address] Madelyn Ovalles Acquired absence of [...] Madelyn Ovalles - 08/21/2022 9:45 AM EDT [facility] Daily Note Name: Buzz Hurley : 1965 Diagnosis: Left transfemoral amputation Time In: 9:45 Time Out: 10:31 SUBJECTIVE Patient brought his cane again today. I had to walk farther because they wouldn't pull up to the door. He also reports that he is doing better with the gravel. I'm just slow careful. Patient reports that he's going to [facility] this weekend with a friend. 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
--- OUTSIDE RECORDS SUMMARY | 2024-02-24 15:34 | XMS_ITS | Encounter Summary ---
Author Organization [facility] Address [address] [place] [address] Care Team Providers Care Neurosurgical Nurse Name Role Phone Terence Ring Primary Care Provider [phone] Encounter Details Date Type Department Care Team [...] 03/07/2024 1:40 PM EST Office Visit [facility] [place] [address] [facility], [address] [place] [address] Naeem Blunt MD [address] [place] [address] documented as of this encounter Visit Diagnoses Not on filedocumented in this encounter Additional Health Concerns Infection Onset Date Last Indicated Resolved Time MRSA Comment:Positive blood culture 03/03/2019 01/30/2024 documented as of this encounter Care Teams Neurosurgical Nurse Relationship Specialty Start Date End Date Terence Ring [facility] [place] [address] PCP - General 08/09/20 03/23/23 documented as of this encounter
--- OUTSIDE RECORDS SUMMARY | 2024-02-24 15:34 | XMS_ITS | Encounter Summary ---
Author Organization [facility] Address [address] [place] [address] Care Team Providers Care Oil Rag Washer Name Role Phone Terence Ring Primary Care Provider [phone] Encounter Details Date Type Department Care Team ([facility] Contact Info) Description 07/10/2022 Plan of Care Documentation [facility] Outpatient Therapy [address] [place] [address] Social History Tobacco Use Types [...] Description 03/07/2024 1:40 PM EST Office Visit [facility] [place] [address] [facility], [address] [place] [address] Naeem Blunt MD [address] [place] [address] documented as of this encounter Visit Diagnoses Not on filedocumented in this encounter Additional Health Concerns Infection Onset Date Last Indicated Resolved Time MRSA Comment:Positive blood culture 03/03/2019 01/30/2024 documented as of this encounter Care Teams Oil Rag Washer Relationship Specialty Start Date End Date Terence Ring [facility] [employer] [place] [id number] PCP - General 08/09/20 03/23/23 documented as of this encounter
--- OUTSIDE RECORDS SUMMARY | 2024-02-24 15:34 | XMS_ITS | Encounter Summary ---
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) Impaired mobility Ajay Goddard MD [address] [facility] [address] [place] [address] Phone: tel: fax: [facility] Therapy [address] [place] [address] Phone: tel: fax: Referral ID Status Reason Start Date Expiration Date V isits Requested Visits Authorized [id number] Closed Specialty Services Required 03/06/2022 10/30/2022 1 44 Encounter Details Date Type Department Care Team (Latest Contact Info) Description 06/17/2022 8:42 AM EDT - 06/17/2022 11:59 PM EDT Hospital Encounter [facility]patient Therapy [address] [place] [address] Madelyn Ovalles Acquired absence of [...] Madelyn Ovalles - 06/17/2022 9:30 AM EDT [facility] Orthopedic Rehabilitation [...] Description 03/07/2024 1:40 PM EST Office Visit [facility] [place] [address] [facility], [address] [place] [address] Naeem Blunt MD [address] [place] [address] documented as of this encounter Visit Diagnoses Diagnosis 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
--- OUTSIDE RECORDS SUMMARY | 2024-02-24 15:34 | XMS_ITS | Encounter Summary ---
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) Impaired mobility Ajay Goddard MD [address] [facility] [address] [place] [address] Phone: tel: fax: [facility] Outpatient Therapy [address] [place] [address] Phone: tel: fax: Referral ID Status Reason Start Date Expiration Date V isits Requested Visits Authorized [id number] Closed Specialty Services Required 03/06/2022 10/30/2022 1 44 Encounter Details Date Type Department Care Team (Latest Contact Info) Description 08/14/2022 8:52 AM EDT - 08/14/2022 11:59 PM EDT Hospital Encounter [facility] Outpatient Therapy [address] [place] [address] Madelyn Ovalles Acquired absence of [...] Madelyn Ovalles - 08/14/2022 9:45 AM EDT [facility] Orthopedic [...] Description 03/07/2024 1:40 PM EST Office Visit [facility] [place] [address] [facility], [address] [place] [address] Naeem Blunt MD [address] [place] [address] documented as of this encounter Visit Diagnoses Diagnosis 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
--- OUTSIDE RECORDS SUMMARY | 2024-02-24 15:34 | XMS_ITS | Encounter Summary ---
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 [address] [place] [address] Phone: tel: fax: [facility] Outpatient Therapy [address] [place] [address] Phone: tel: fax: Referral ID Status Reason Start Date Expiration Date V isits Requested Visits Authorized [id number] Closed Specialty Services Required 03/06/2022 10/30/2022 1 44 Encounter Details Date Type Department Care Team (Latest Contact Info) Description 07/31/2022 9:07 AM EDT - 07/31/2022 11:59 PM EDT Hospital Encounter [facility] Outpatient Therapy [address] [place] [address] Madelyn Ovalles Acquired absence of [...] Madelyn Ovalles - 07/31/2022 9:45 AM EDT [facility] [...] Description 03/07/2024 1:40 PM EST Office Visit [facility] [place] [address] [facility], [address] [place] [address] Naeem Blunt MD [address] [place] [address] documented as of this encounter Visit Diagnoses Diagnosis 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 [place] [address] PCP - General 08/09/20 03/23/23 documented as of this encounter
--- OUTSIDE RECORDS SUMMARY | 2024-02-24 15:34 | XMS_ITS | Encounter Summary ---
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) Impaired mobility Ajay Goddard MD [address] [facility] [address] [place] [address] Phone: tel: fax: [facility] Therapy [address] [place] [address] Phone: tel: fax: Referral ID Status Reason Start Date Expiration Date V isits Requested Visits Authorized [id number] Closed Specialty Services Required 03/06/2022 10/30/2022 1 44 Encounter Details Date Type Department Care Team (Latest Contact Info) Description 08/05/2022 9:18 AM EDT - 08/05/2022 11:59 PM EDT Hospital Encounter [facility] Therapy [address] [place] [address] Madelyn Ovalles Acquired absence of [...] Madelyn Ovalles - 08/05/2022 9:45 AM EDT [facility] Orthopedic [...] Description 03/07/2024 1:40 PM EST Office Visit [facility] [place] [address] 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
--- OUTSIDE RECORDS SUMMARY | 2024-02-24 15:34 | XMS_ITS | Encounter Summary ---
Author Organization [facility] Address [address] [place] [address] Care Team Providers Care Roll Slicing Machine Tender Name Role Phone Terence Ring Primary Care Provider [phone] Encounter Details Date Type Department Care Team [...] Description 03/07/2024 1:40 PM EST Office Visit [facility] [place] [address] [facility], [address] [place] [address] Naeem Blunt MD [address] [place] [address] documented as of this encounter Visit Diagnoses Not on filedocumented in this encounter Additional Health Concerns Infection Onset Date Last Indicated Resolved Time MRSA Comment:Positive blood culture 03/03/2019 01/30/2024 documented as of this encounter Care Teams Roll Slicing Machine Tender Relationship Specialty Start Date End Date Terence Ring [facility] [place] [address] PCP - General 08/09/20 03/23/23 documented as of this encounter
--- OUTSIDE RECORDS SUMMARY | 2024-02-24 15:34 | XMS_ITS | Encounter Summary ---
Author Organization [facility] Address [address] [place] [address] Care Team Providers Care Principal Web Developer Name Role Phone Terence Ring Primary Care Provider [phone] Encounter Details Date Type Department Care Team [...] Description 03/07/2024 1:40 PM EST Office Visit [facility] [place] [address] [facility], [address] [place] [address] Naeem Blunt MD [address] [place] [address] documented as of this encounter Visit Diagnoses Not on filedocumented in this encounter Additional Health Concerns Infection Onset Date Last Indicated Resolved Time MRSA Comment:Positive blood culture 03/03/2019 01/30/2024 documented as of this encounter Care Teams Principal Web Developer Relationship Specialty Start Date End Date Terence Ring [facility] [place] [address] PCP - General 08/09/20 03/23/23 documented as of this encounter
--- OUTSIDE RECORDS SUMMARY | 2024-02-24 15:34 | XMS_ITS | Encounter Summary ---
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) Impaired mobility Ajay Goddard MD [address] [facility] [address] [place] [address] Phone: tel: fax: [facility] Outpatient Therapy [address] [place] [address] Phone: tel: fax: Referral ID Status Reason Start Date Expiration Date V isits Requested Visits Authorized [id number] Closed Specialty Services Required 03/06/2022 10/30/2022 1 44 Encounter Details Date Type Department Care Team (Latest Contact Info) Description 08/12/2022 9:38 AM EDT - 08/12/2022 11:59 PM EDT Hospital Encounter [facility] Outpatient Therapy [address] [place] [address] Madelyn Ovalles Acquired absence of [...] Madelyn Ovalles - 08/12/2022 9:45 AM EDT [facility] Orthopedic Rehabilitation PT 30 Day [...] OF STENT N/A Cath Stent Placement from [facility] CHOLECYSTECTOMY N/A Cholecystectomy from [facility] SUBJECTIVE Patient reports that his blood pressure [...] balance, and functional mobility training. Primary Language: Kinyarwanda Needs communication device: No Does the patient understand basic information? Yes, able to self manage. Barriers to learning: None Cultural/Nondenominational beliefs: None that will affect treatment Rehab Potential/Prognosis: Good Personal Factors/Comorbidities Affecting Care: Pre-Injury Condition , Prior history of condition, and Fear avoidance behavior Complexity: Moderate Complexity using Standard PT Assessment (64135) PLAN Patient to be seen 2 times [...] 1 Upper Extremity assist for ADL's. 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
--- OUTSIDE RECORDS SUMMARY | 2024-02-24 15:34 | XMS_ITS | Encounter Summary ---
Author Organization [facility] Address [address] [place] [address] Care Team Providers Care Chief Security Officer Name Role Phone Terence Ring Primary Care Provider [phone] Encounter Details Date Type Department Care Team [...] Description 03/07/2024 1:40 PM EST Office Visit [facility] [place] [address] [facility], [address] [place] [address] Naeem Blunt MD [address] [place] [address] documented as of this encounter Visit Diagnoses Not on filedocumented in this encounter Additional Health Concerns Infection Onset Date Last Indicated Resolved Time MRSA Comment:Positive blood culture 03/03/2019 01/30/2024 documented as of this encounter Care Teams Chief Security Officer Relationship Specialty Start Date End Date Terence Ring [facility] [employer] [place] [address] PCP - General 08/09/20 03/23/23 documented as of this encounter
--- OUTSIDE RECORDS SUMMARY | 2024-02-24 15:34 | XMS_ITS | Encounter Summary ---
Author Organization [facility] Address [address] [place] [address] Care Team Providers Care Aerospace Engineer Officer Armament Name Role Phone Terence Ring Primary Care Provider [phone] Encounter Details Date Type Department Care Team [...] Description 03/07/2024 1:40 PM EST Office Visit [facility] [place] [address] [facility], [address] [place] [address] Naeem Blunt MD [address] [place] [address] documented as of this encounter Visit Diagnoses Not on filedocumented in this encounter Additional Health Concerns Infection Onset Date Last Indicated Resolved Time MRSA Comment:Positive blood culture 03/03/2019 01/30/2024 documented as of this encounter Care Teams Aerospace Engineer Officer Armament Relationship Specialty Start Date End Date Terence Ring [facility] [place] [address] PCP - General 08/09/20 03/23/23 documented as of this encounter
--- OUTSIDE RECORDS SUMMARY | 2024-02-24 15:34 | XMS_ITS | Encounter Summary ---
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) Impaired mobility Ajay Goddard MD [address] [facility] [address] [place] [address] Phone: tel: fax: [facility] Outpatient Therapy [address] [place] [address] Phone: tel: fax: Referral ID Status Reason Start Date Expiration Date V isits Requested Visits Authorized [id number] Closed Specialty Services Required 03/06/2022 10/30/2022 1 44 Encounter Details Date Type Department Care Team (Latest Contact Info) Description 08/26/2022 8:48 AM EDT - 08/26/2022 11:59 PM EDT Hospital Encounter [facility] Outpatient Therapy [address] [place] [address] Madelyn Ovalles Acquired absence of [...] Madelyn Ovalles - 08/26/2022 9:45 AM EDT [facility] [...] Description 03/07/2024 1:40 PM EST Office Visit [facility] [place] [address] [facility], [address] [place] [address] Naeem Blunt MD [address] [place] [address] documented as of this encounter Visit Diagnoses Diagnosis 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
--- OUTSIDE RECORDS SUMMARY | 2024-02-24 15:34 | XMS_ITS | Encounter Summary ---
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) Impaired mobility Ajay Goddard MD [address] [facility] [address] [place] [address] Phone: tel: fax: [facility] Outpatient Therapy [address] [place] [address] Phone: tel: fax: Referral ID Status Reason Start Date Expiration Date V isits Requested Visits Authorized [id number] Closed Specialty Services Required 03/06/2022 10/30/2022 1 44 Encounter Details Date Type Department Care Team (Latest Contact Info) Description 08/19/2022 8:47 AM EDT - 08/19/2022 11:59 PM EDT Hospital Encounter [facility] Outpatient Therapy [address] [place] [address] Madelyn Ovalles Acquired absence of [...] Madelyn Ovalles - 08/19/2022 9:45 AM EDT 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
--- OUTSIDE RECORDS SUMMARY | 2024-02-24 15:34 | XMS_ITS | Encounter Summary ---
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) Impaired mobility Ajay Goddard MD [address] [facility] [address] [place] [address] Phone: tel: fax: [facility] Outpatient Therapy [address] [place] [address] Phone: tel: fax: Referral ID Status Reason Start Date Expiration Date V isits Requested Visits Authorized [id number] Closed Specialty Services Required 03/06/2022 10/30/2022 1 44 Encounter Details Date Type Department Care Team (Latest Contact Info) Description 09/04/2022 8:47 AM EDT - 09/04/2022 11:59 PM EDT Hospital Encounter [facility] Outpatient Therapy [address] [place] [address] Madelyn Ovalles Acquired absence of [...] Madelyn Ovalles - 09/04/2022 9:45 AM EDT [facility] Orthopedic Rehabilitation Daily Note Name: [...] 03/07/2024 1:40 PM EST Office Visit [facility] [place] [address] [facility], [address] [place] [address] Naeem Blunt MD [address] [place] [address] documented as of this encounter Visit Diagnoses Diagnosis 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
--- OUTSIDE RECORDS SUMMARY | 2024-02-24 15:34 | XMS_ITS | Encounter Summary ---
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 [address] [place] [address] Phone: tel: fax: [facility] Outpatient Therapy [address] [place] [address] Phone: tel: fax: Referral ID Status Reason Start Date Expiration Date V isits Requested Visits Authorized [id number] Closed Specialty Services Required 03/06/2022 10/30/2022 1 44 Encounter Details Date Type Department Care Team (Latest Contact Info) Description 07/10/2022 8:47 AM EDT - 07/10/2022 11:59 PM EDT Hospital Encounter [facility] Outpatient Therapy [address] [place] [address] Madelyn Ovalles Acquired absence of [...] Madelyn Ovalles - 07/10/2022 9:45 AM EDT [facility] Orthopedic Rehabilitation PT 30 Day Progress [...] OF STENT N/A Cath Stent Placement from [facility] CHOLECYSTECTOMY N/A Cholecystectomy from [facility] SUBJECTIVE Patient reports that his sugar has [...] balance, and functional mobility training. Primary Language: Bulgarian Needs communication device: No Does the patient understand basic information? Yes, able to self manage. Barriers to learning: None Cultural/Christian beliefs: None that will affect treatment Rehab Potential/Prognosis: Good Personal Factors/Comorbidities Affecting Care: Pre-Injury Condition , Prior history of condition, and Fear avoidance behavior Complexity: Moderate Complexity using Standard PT Assessment (60547) PLAN Patient to be seen 2 times [...] 1 Upper Extremity assist for ADL's. 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
--- OUTSIDE RECORDS SUMMARY | 2024-02-24 15:34 | XMS_ITS | Encounter Summary ---
Author Organization [facility] Address [address] [place] [address] Care Team Providers Care Product Trainer Name Role Phone Terence Ring Primary Care Provider [phone] Encounter Details Date Type Department Care Team [...] Description 03/07/2024 1:40 PM EST Office Visit [facility] [place] [address] [facility], [address] [place] [address] Naeem Blunt MD [address] [place] [address] documented as of this encounter Visit Diagnoses Not on filedocumented in this encounter Additional Health Concerns Infection Onset Date Last Indicated Resolved Time MRSA Comment:Positive blood culture 03/03/2019 01/30/2024 documented as of this encounter Care Teams Product Trainer Relationship Specialty Start Date End Date Terence Ring [facility] [place] [address] PCP - General 08/09/20 03/23/23 documented as of this encounter
--- OUTSIDE RECORDS SUMMARY | 2024-02-24 15:34 | XMS_ITS | Encounter Summary ---
Author Organization [facility] Address [address] [place] [address] Care Team Providers Care Milk Processing Worker Name Role Phone Terence Ring Primary [...] Description 03/07/2024 1:40 PM EST Office Visit [facility] [place] [address] [facility], [address] [place] [address] Naeem Blunt MD [address] [place] [address] documented as of this encounter Visit Diagnoses Not on filedocumented in this encounter Additional Health Concerns Infection Onset Date Last Indicated Resolved Time MRSA Comment:Positive blood culture 03/03/2019 01/30/2024 documented as of this encounter Care Teams Milk Processing Worker Relationship Specialty Start Date End Date Terence Ring [facility] [place] [address] PCP - General 08/09/20 03/23/23 documented as of this encounter
--- OUTSIDE RECORDS SUMMARY | 2024-02-24 15:34 | XMS_ITS | Encounter Summary ---
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) Impaired mobility Ajay Goddard MD [address] [facility] [address] [place] [address] Phone: tel: fax: [facility] Outpatient Therapy [address] [place] [address] Phone: tel: fax: Referral ID Status Reason Start Date Expiration Date V isits Requested Visits Authorized [id number] Closed Specialty Services Required 03/06/2022 10/30/2022 1 44 Encounter Details Date Type Department Care Team (Latest Contact Info) Description 06/12/2022 8:50 AM EDT - 06/12/2022 11:59 PM EDT Hospital Encounter [facility] Outpatient Therapy [address] [place] [address] Madelyn Ovalles Acquired absence of [...] Madelyn Ovalles - 06/12/2022 9:45 AM EDT [facility] Orthopedic Rehabilitation Daily Note Name: Buzz [...] transfers. Patient was very fatigued attempts to tile picker objects from the floor. 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
--- OUTSIDE RECORDS SUMMARY | 2024-02-24 15:34 | XMS_ITS | Encounter Summary ---
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) Impaired mobility Ajay Goddard MD [address] [facility] [address] [place] [address] Phone: tel: fax: [facility] Outpatient Therapy [address] [place] [address] Phone: tel: fax: Referral ID Status Reason Start Date Expiration Date V isits Requested Visits Authorized [id number] Closed Specialty Services Required 03/06/2022 10/30/2022 1 44 Encounter Details Date Type Department Care Team (Latest Contact Info) Description 09/09/2022 9:07 AM EDT - 09/09/2022 11:59 PM EDT Hospital Encounter [facility] Out[facility] Therapy [address] [place] [address] Madelyn Ovalles Acquired absence of [...] Madelyn Ovalles - 09/09/2022 9:45 AM EDT [facility] Orthopedic Rehabilitation Daily Note Name: Buzz Hurley : 1965 Diagnosis: Left transfemoral amputation Time In: 9:45 Time Out: 10:23 SUBJECTIVE Patient reports that he went [employer] shopping and out to eat with his [...] Upcoming Encounters Date Type Department Care Team ([facility] st Contact Info) Description 03/07/2024 1:40 PM EST Office Visit [facility] [place] [address] [facility], [address] [place] [address] Naeem Blunt MD [address] [place] [address] documented as of this encounter Visit Diagnoses Diagnosis 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
--- OUTSIDE RECORDS SUMMARY | 2024-02-24 15:34 | XMS_ITS | Encounter Summary ---
Author Organization [facility] Address [address] [place] [address] Care Team Providers Care Planting Machine Operator Name Role Phone Terence Ring Primary Care Provider [phone] Encounter Details Date Type Department Care Team [...] Description 03/07/2024 1:40 PM EST Office Visit [facility] [place] [address] [facility], [address] [place] [address] Naeem Blunt MD [address] [place] [address] documented as of this encounter Visit Diagnoses Not on filedocumented in this encounter Additional Health Concerns Infection Onset Date Last Indicated Resolved Time MRSA Comment:Positive blood culture 03/03/2019 01/30/2024 documented as of this encounter Care Teams Planting Machine Operator Relationship Specialty Start Date End Date Terence Ring [facility] [employer] [place] [address] PCP - General 08/09/20 03/23/23 documented as of this encounter
--- OUTSIDE RECORDS SUMMARY | 2024-02-24 15:34 | XMS_ITS | Encounter Summary ---
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) Impaired mobility Ajay Goddard MD [address] [facility] [address] [place] [address] Phone: tel: fax: [facility] Outpatient Therapy [address] [place] [address] Phone: tel: fax: Referral ID Status Reason Start Date Expiration Date V isits Requested Visits Authorized [id number] Closed Specialty Services Required 03/06/2022 10/30/2022 1 44 Encounter Details Date Type Department Care Team (Latest Contact Info) Description 06/24/2022 8:48 AM EDT - 06/24/2022 11:59 PM EDT Hospital Encounter [facility] Outpatient Therapy [address] [place] [address] Madelyn Ovalles Acquired absence of [...] Madelyn Ovalles - 06/24/2022 9:45 AM EDT [facility] Orthopedic [...] Upcoming Encounters Date Type Department Care Team ([facility] st Contact Info) Description 03/07/2024 1:40 PM EST Office Visit [facility] [place] [address] [facility], [address] [place] [address] Naeem Blunt MD [address] [place] [address] documented as of this encounter Visit Diagnoses Diagnosis 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
--- OUTSIDE RECORDS SUMMARY | 2024-02-24 15:34 | XMS_ITS | Encounter Summary ---
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) Impaired mobility Ajay Goddard MD [address] [facility] [address] [place] [address] Phone: tel: fax: [facility] Outpatient Therapy [address] [place] [address] Phone: tel: fax: Referral ID Status Reason Start Date Expiration Date V isits Requested Visits Authorized [id number] Closed Specialty Services Required 03/06/2022 10/30/2022 1 44 Encounter Details Date Type Department Care Team (Latest Contact Info) Description 06/03/2022 9:23 AM EST - 06/03/2022 11:59 PM [facility] Hospital Encounter [facility] Outpatient Therapy [address] [place] [address] Madelyn Ovalles Acquired absence of [...] Madelyn Ovalles - 06/03/2022 9:45 AM EST [facility] Orthopedic Rehabilitation Daily Note [...] Description 03/07/2024 1:40 PM EST Office Visit [facility] [place] [address] 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 [place] [address] PCP - General 08/09/20 03/23/23 documented as of this encounter
--- OUTSIDE RECORDS SUMMARY | 2024-02-24 15:34 | XMS_ITS | Encounter Summary ---
Author Organization [facility] Address [address] [place] [address] Care Team Providers Care Linux Architect Name Role Phone Terence Ring Primary Care Provider [phone] Encounter Details Date Type Department Care Team [...] Description 03/07/2024 1:40 PM EST Office Visit [facility] [place] [address] [facility], [address] [place] [address] Naeem Blunt MD [address] [place] [address] documented as of this encounter Visit Diagnoses Not on filedocumented in this encounter Additional Health Concerns Infection Onset Date Last Indicated Resolved Time MRSA Comment:Positive blood culture 03/03/2019 01/30/2024 documented as of this encounter Care Teams Linux Architect Relationship Specialty Start Date End Date Terence Ring [facility] [place] [address] PCP - General 08/09/20 03/23/23 documented as of this encounter
--- OUTSIDE RECORDS SUMMARY | 2024-02-24 15:34 | XMS_ITS | Encounter Summary ---
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) Impaired mobility Ajay Goddard MD [address] [facility] [address] [place] [address] Phone: tel: fax: [facility] Outpatient Therapy [address] [place] [address] Phone: tel: fax: Referral ID Status Reason Start Date Expiration Date V isits Requested Visits Authorized [id number] Closed Specialty Services Required 03/06/2022 10/30/2022 1 44 Encounter Details Date Type Department Care Team (Latest Contact Info) Description 09/16/2022 9:17 AM EDT - 09/16/2022 11:59 PM EDT Hospital Encounter [facility] Outpatient Therapy [address] [place] [address] Madelyn Ovalles Acquired absence of [...] Madelyn Ovalles - 09/16/2022 9:45 AM EDT [facility] Orthopedic Rehabilitation PT 30 Day [...] OF STENT N/A Cath Stent Placement from [facility] CHOLECYSTECTOMY N/A Cholecystectomy from [facility] SUBJECTIVE Patient reports that his blood pressure [...] reports that he isn't going to the [facility] because it is so far of a [...] balance, and functional mobility training. Primary Language: Comoran Needs communication device: No Does the patient understand basic information? Yes, able to self manage. Barriers to learning: None Cultural/Baptist beliefs: None that will affect treatment Rehab Potential/Prognosis: Good Personal Factors/Comorbidities Affecting Care: Pre-Injury Condition , Prior history of condition, and Fear avoidance behavior Complexity: Moderate Complexity using Standard PT Assessment (16948) PLAN Patient to be seen 2 times [...] 1 Upper Extremity assist for ADL's. 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 [place] [address] PCP - General 08/09/20 03/23/23 documented as of this encounter
--- OUTSIDE RECORDS SUMMARY | 2024-02-24 15:34 | XMS_ITS | Encounter Summary ---
Author Organization 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) Impaired mobility Ajay Goddard MD [address] [facility] [address] [place] [address] Phone: tel: fax: [facility] Outpatient Therapy [address] [place] [address] Phone: tel: fax: Referral ID Status Reason Start Date Expiration Date V isits Requested Visits Authorized [id number] Closed Specialty Services Required 03/06/2022 10/30/2022 1 44 Encounter Details Date Type Department Care Team (Latest Contact Info) Description 09/02/2022 8:45 AM EDT - 09/02/2022 11:59 PM EDT Hospital Encounter [facility] Outpatient Therapy [address] [place] [address] Madelyn Ovalles Acquired absence of [...] Madelyn Ovalles - 09/02/2022 9:45 AM EDT [facility] Orthopedic Rehabilitation Daily Note [...] Description 03/07/2024 1:40 PM EST Office Visit [facility] [place] [address] [facility], [address] [place] [address] Naeem Blunt MD [address] [place] [address] documented as of this encounter Visit Diagnoses Diagnosis 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
--- OUTSIDE RECORDS SUMMARY | 2024-02-24 15:34 | XMS_ITS | Encounter Summary ---
Author Organization [facility] Address [address] [place] [address] Care Team Providers Care Supervising Floorperson Name Role Phone Terence Ring Primary Care Provider [phone] Encounter Details Date Type Department Care Team [...] Description 03/07/2024 1:40 PM EST Office Visit [facility] [place] [address] [facility], [address] [place] [address] Naeem Blunt MD [address] [place] [address] documented as of this encounter Visit Diagnoses Not on filedocumented in this encounter Additional Health Concerns Infection Onset Date Last Indicated Resolved Time MRSA Comment:Positive blood culture 03/03/2019 01/30/2024 documented as of this encounter Care Teams Supervising Floorperson Relationship Specialty Start Date End Date Terence Ring [facility] [place] [address] PCP - General 08/09/20 03/23/23 documented as of this encounter
--- OUTSIDE RECORDS SUMMARY | 2024-02-24 15:34 | XMS_ITS | Encounter Summary ---
Author Organization [facility] Address [address] [place] [address] Care Team Providers Care Seat Cover Cutter Name Role Phone Terence Ring Primary Care Provider [phone] Encounter Details Date Type Department Care Team [...] Description 03/07/2024 1:40 PM EST Office Visit [facility] [place] [address] [facility], [address] [place] [address] Naeem Blunt MD [address] [place] [address] documented as of this encounter Visit Diagnoses Not on filedocumented in this encounter Additional Health Concerns Infection Onset Date Last Indicated Resolved Time MRSA Comment:Positive blood culture 03/03/2019 01/30/2024 documented as of this encounter Care Teams Seat Cover Cutter Relationship Specialty Start Date End Date Terence Ring [facility] [place] [address] PCP - General 08/09/20 03/23/23 documented as of this encounter
--- OUTSIDE RECORDS SUMMARY | 2024-02-24 15:34 | XMS_ITS | Encounter Summary ---
Author Organization [facility] Address [address] [place] [address] Care Team Providers Care Awning Assembler Name Role Phone Terence Ring Primary Care Provider [phone] Encounter Details Date Type Department Care Team [...] Description 03/07/2024 1:40 PM EST Office Visit [facility] [place] [address] [facility], [address] [place] [address] Naeem Blunt MD [address] [place] [address] documented as of this encounter Visit Diagnoses Not on filedocumented in this encounter Additional Health Concerns Infection Onset Date Last Indicated Resolved Time MRSA Comment:Positive blood culture 03/03/2019 01/30/2024 documented as of this encounter Care Teams Awning Assembler Relationship Specialty Start Date End Date Terence Ring [facility] [place] [address] PCP - General 08/09/20 03/23/23 documented as of this encounter
--- OUTSIDE RECORDS SUMMARY | 2024-02-24 15:34 | XMS_ITS | Encounter Summary ---
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) Impaired mobility Ajay Goddard MD [address] [facility] [address] [place] [address] Phone: tel: fax: [facility] Outpatient Therapy [address] [place] [address] Phone: tel: fax: Referral ID Status Reason Start Date Expiration Date V isits Requested Visits Authorized [id number] Closed Specialty Services Required 03/06/2022 10/30/2022 1 44 Encounter Details Date Type Department Care Team (Latest Contact Info) Description 07/22/2022 8:50 AM EDT - 07/22/2022 11:59 PM EDT Hospital Encounter [facility] Outpatient Therapy [address] [place] [address] Madelyn Ovalles Acquired absence of [...] Madelyn Ovalles - 07/22/2022 9:45 AM EDT [facility] Orthopedic Rehabilitation Daily Note Name: [...] Description 03/07/2024 1:40 PM EST Office Visit [facility] [place] [address] [facility], [address] [place] [address] Naeem Blunt MD [address] [place] [address] documented as of this encounter Visit Diagnoses Diagnosis 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
--- OUTSIDE RECORDS SUMMARY | 2024-02-24 15:34 | XMS_ITS | Encounter Summary ---
Author Organization [facility] Address [address] [place] [address] Care Team Providers Care Extension Course Counselor Name Role Phone Terence Ring Primary Care Provider [phone] Encounter Details Date Type Department Care Team [...] Description 03/07/2024 1:40 PM EST Office Visit [facility] [place] [address] [facility], [address] [place] [address] Naeem Blunt MD [address] [place] [address] documented as of this encounter Visit Diagnoses Not on filedocumented in this encounter Additional Health Concerns Infection Onset Date Last Indicated Resolved Time MRSA Comment:Positive blood culture 03/03/2019 01/30/2024 documented as of this encounter Care Teams Extension Course Counselor Relationship Specialty Start Date End Date Terence Ring [facility] [place] [address] PCP - General 08/09/20 03/23/23 documented as of this encounter
--- OUTSIDE RECORDS SUMMARY | 2024-02-24 15:34 | XMS_ITS | Encounter Summary ---
Author Organization [facility] Address [address] [place] [address] Care Team Providers Care Reception Interviewer Name Role Phone Terence Ring Primary Care Provider [phone] Encounter Details Date Type Department Care Team [...] Description 03/07/2024 1:40 PM EST Office Visit [facility] [place] [address] [facility], [address] [place] [address] Naeem Blunt MD [address] [place] [address] documented as of this encounter Visit Diagnoses Not on filedocumented in this encounter Additional Health Concerns Infection Onset Date Last Indicated Resolved Time MRSA Comment:Positive blood culture 03/03/2019 01/30/2024 documented as of this encounter Care Teams Reception Interviewer Relationship Specialty Start Date End Date Terence Ring [facility] [place] [address] PCP - General 08/09/20 03/23/23 documented as of this encounter
--- OUTSIDE RECORDS SUMMARY | 2024-02-24 15:34 | XMS_ITS | Encounter Summary ---
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) Impaired mobility Ajay Goddard MD [address] [facility] [address] [place] [address] Phone: tel: fax: [facility] Outpatient Therapy [address] [place] [address] Phone: tel: fax: Referral ID Status Reason Start Date Expiration Date V isits Requested Visits Authorized [id number] Closed Specialty Services Required 03/06/2022 10/30/2022 1 44 Encounter Details Date Type Department Care Team (Latest Contact Info) Description 07/03/2022 9:24 AM EDT - 07/03/2022 11:59 PM EDT Hospital Encounter [facility] Outpatient Therapy [address] [place] [address] Madelyn Ovalles Acquired absence of [...] Madelyn Ovalles - 07/03/2022 9:45 AM EDT [facility] Orthopedic Rehabilitation Daily Note Name: Buzz [...] Description 03/07/2024 1:40 PM EST Office Visit [facility] [place] [address] [facility], [address] [place] [address] Naeem Blunt MD [address] [place] [address] documented as of this encounter Visit Diagnoses Diagnosis 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
--- OUTSIDE RECORDS SUMMARY | 2024-02-24 15:34 | XMS_ITS | Encounter Summary ---
Author Organization [facility] Address [address] [place] [address] Care Team Providers Care Doctor Naturopathic Name Role Phone Terence Ring Primary Care Provider [phone] Encounter Details Date Type Department Care Team [...] Description 03/07/2024 1:40 PM EST Office Visit [facility] [place] [address] [facility], [address] [place] [address] Naeem Blunt MD [address] [place] [address] documented as of this encounter Visit Diagnoses Not on filedocumented in this encounter Additional Health Concerns Infection Onset Date Last Indicated Resolved Time MRSA Comment:Positive blood culture 03/03/2019 01/30/2024 documented as of this encounter Care Teams Doctor Naturopathic Relationship Specialty Start Date End Date Terence Ring [facility] [place] [address] PCP - General 08/09/20 03/23/23 documented as of this encounter
--- OUTSIDE RECORDS SUMMARY | 2024-02-24 15:34 | XMS_ITS | Encounter Summary ---
Author Organization [facility] Address [address] [place] [address] Care Team Providers Care Airborne Sensor Specialist Name Role Phone Terence Ring Primary Care Provider [phone] Encounter Details Date Type Department Care Team [...] Description 03/07/2024 1:40 PM EST Office Visit [facility] [place] [address] [facility], [address] [place] [address] Naeem Blunt MD [address] [place] [address] documented as of this encounter Visit Diagnoses Not on filedocumented in this encounter Additional Health Concerns Infection Onset Date Last Indicated Resolved Time MRSA Comment:Positive blood culture 03/03/2019 01/30/2024 documented as of this encounter Care Teams Airborne Sensor Specialist Relationship Specialty Start Date End Date Terence Ring [facility] [place] [address] PCP - General 08/09/20 03/23/23 documented as of this encounter
--- OUTSIDE RECORDS SUMMARY | 2024-02-24 15:35 | XMS_ITS | Encounter Summary ---
Author Organization [facility] Address [address] [place] [address] Care Team Providers Care Gis Technician Name Role Phone Terence Ring Primary Care Provider [phone] Encounter Details Date Type Department Care Team (Late Contact Info) Description 09/22/2021 Orders Only [place] [address] [place] [address] Ajay Goddard MD [address] [facility] [address] [place] [address] Left above-knee amputee (CMS/HCC) (Primary [...] Description 03/07/2024 1:40 PM EST Office Visit [facility] [place] [address] [facility], [address] [place] [address] Naeem Blunt MD [address] [place] [address] documented as of this encounter Visit Diagnoses Diagnosis Left above-knee amputee (CMS/HCC)- Primary Impaired mobility Other ill-defined conditions documented in this encounter Additional Health Concerns Infection Onset Date Last Indicated Resolved Time MRSA Comment:Positive blood culture 03/03/2019 01/30/2024 documented as of this encounter Care Teams Gis Technician Relationship Specialty Start Date End Date Terence Ring [facility] [employer] [place] [id number] PCP - General 08/09/20 03/23/23 documented as of this encounter
--- OUTSIDE RECORDS SUMMARY | 2024-02-24 15:35 | XMS_ITS | Encounter Summary ---
Author Organization [facility] Address [address] [place] [address] Care Team Providers Care Paramedic Supervisor Name Role Phone Terence Ring Primary Care Provider [phone] Reason for Visit * Consultation (Routine) - Closed Specialty Diagnoses / Procedures Referred By Neno noel Referred To Contact Physical Therapy Diagnoses 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) Impaired mobility Ajay Goddard MD [address] [facility] [address] [place] [address] Phone: tel: fax: [facility] Outpatient Therapy [address] [place] [address] Phone: tel: fax: Referral ID Status Reason Start Date Expiration Date V isits Requested Visits Authorized [id number] Closed Specialty Services Required 03/06/2022 10/30/2022 1 44 Encounter Details Date Type Department Care Team (Latest Contact Info) Description 05/29/2022 8:59 AM EST - 05/29/2022 11:59 PM EST Hospital Encounter [facility] Outpatient Therapy [address] [place] [address] Madelyn Ovalles Acquired absence of [...] Madelyn Ovalles - 05/29/2022 9:45 AM EST [facility] Orthopedic Rehabilitation Daily Note [...] Description 03/07/2024 1:40 PM EST Office Visit [facility] [place] [address] [facility], [address] [place] [address] Naeem Blunt MD [address] [place] [address] documented as of this encounter Visit Diagnoses Diagnosis 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
--- OUTSIDE RECORDS SUMMARY | 2024-02-24 15:35 | XMS_ITS | Encounter Summary ---
Author Organization [facility] Address [address] [place] [address] Care Team Providers Care Body Service Team Member Name Role Phone Terence Ring Primary Care Provider [phone] Encounter Details Date Type Department Care Team [...] Description 03/07/2024 1:40 PM EST Office Visit [facility] [place] [address] [facility], [address] [place] [address] Naeem Blunt MD [address] [place] [address] documented as of this encounter Visit Diagnoses Not on filedocumented in this encounter Additional Health Concerns Infection Onset Date Last Indicated Resolved Time MRSA Comment:Positive blood culture 03/03/2019 01/30/2024 documented as of this encounter Care Teams Body Service Team Member Relationship Specialty Start Date End Date Terence Ring [facility] [place] [address] PCP - General 08/09/20 03/23/23 documented as of this encounter
--- OUTSIDE RECORDS SUMMARY | 2024-02-24 15:35 | XMS_ITS | Encounter Summary ---
Author Organization [facility] Address [address] [place] [address] Care Team Providers Care Account Retention Representative Name Role Phone Terence Ring Primary Care Provider [phone] Reason for Visit * Reason Onset Date Comments HCN - Patient Message 09/22/2021 Encounter Details Date Type Department Care Team (Late st Contact Info) Description 09/22/2021 Telephone [facility] SCHEDULING [address] [place] [address] Divya Conrad, DO [address] [facility] [address] [place] [address] HCN - Patient Message Social History Tobacco [...] returned call, asks to be reached at [phone] Best contact number and optimal time of day to reach caller: [phone] Note: Please do not reply to this [...] requesting call back to discuss PT/OT at [facility] Best contact number and optimal time of day to reach caller: [phone] Note: Please do not reply to this [...] Description 03/07/2024 1:40 PM EST Office Visit [facility] [place] [address] [facility], [address] [place] [address] Naeem Blunt MD [address] [place] [address] documented as of this encounter Visit Diagnoses Not on filedocumented in this encounter Additional Health Concerns Infection Onset Date Last Indicated Resolved Time MRSA Comment:Positive blood culture 03/03/2019 01/30/2024 documented as of this encounter Care Teams Account Retention Representative Relationship Specialty Start Date End Date Terence Ring [address] [place], [place] [address] [place] [id number] PCP - General 08/09/20 03/23/23 documented as of this encounter
--- OUTSIDE RECORDS SUMMARY | 2024-02-24 15:35 | XMS_ITS | Encounter Summary ---
Author Organization [facility] Address [address] [place] [address] Care Team Providers Care Cabinet And Trim Installer Name Role Phone Terence Ring Primary Care Provider [phone] Encounter Details Date Type Department Care Team [...] Description 03/07/2024 1:40 PM EST Office Visit [facility] [place] [address] [facility], [address] [place] [address] Naeem Blunt MD [address] [place] [address] documented as of this encounter Visit Diagnoses Not on filedocumented in this encounter Additional Health Concerns Infection Onset Date Last Indicated Resolved Time MRSA Comment:Positive blood culture 03/03/2019 01/30/2024 documented as of this encounter Care Teams Cabinet And Trim Installer Relationship Specialty Start Date End Date Terence Ring [facility] [place] [address] PCP - General 08/09/20 03/23/23 documented as of this encounter
--- OUTSIDE RECORDS SUMMARY | 2024-02-24 15:35 | XMS_ITS | Encounter Summary ---
Author Organization [facility] Address [address] [place] [address] Care Team Providers Care Supervisor Cutting And Boning Name Role Phone Terence Ring Primary Care Provider [phone] Encounter Details Date Type Department Care Team [...] Description 03/07/2024 1:40 PM EST Office Visit [facility] [place] [address] [facility], [address] [place] [address] Naeem Blunt MD [address] [place] [address] documented as of this encounter Visit Diagnoses Not on filedocumented in this encounter Additional Health Concerns Infection Onset Date Last Indicated Resolved Time MRSA Comment:Positive blood culture 03/03/2019 01/30/2024 documented as of this encounter Care Teams Supervisor Cutting And Boning Relationship Specialty Start Date End Date Terence Ring [facility] [place] [address] PCP - General 08/09/20 03/23/23 documented as of this encounter
--- OUTSIDE RECORDS SUMMARY | 2024-02-24 15:35 | XMS_ITS | Encounter Summary ---
Author Organization [facility] Address [address] [place] [address] Care Team Providers Care Assignment Editor Name Role Phone Terence Ring Primary Care Provider [phone] Reason for Visit * Consultation (Routine) - Closed Specialty Diagnoses / Procedures Referred By Neno noel Referred To Contact Physical Therapy Diagnoses 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) Impaired mobility Ajay Goddard MD [address] [facility] [address] [place] [address] Phone: tel: fax: [facility] Outpatient Therapy [address] [place] [address] Phone: tel: fax: Referral ID Status Reason Start Date Expiration Date V isits Requested Visits Authorized [id number] Closed Specialty Services Required 03/06/2022 10/30/2022 1 44 Encounter Details Date Type Department Care Team (Latest Contact Info) Description 04/22/2022 8:52 AM EST - 04/22/2022 11:59 PM EST Hospital Encounter [facility] Outpatient Therapy [address] [place] [address] Madelyn Ovalles Above knee amputation [...] Madelyn Ovalles - 04/22/2022 9:30 AM EST [facility] Orthopedic Rehabilitation Daily Note Name: [...] Description 03/07/2024 1:40 PM EST Office Visit [facility] [place] [address] [facility], [address] [place] [address] Naeem Blunt MD [address] [place] [address] documented as of this encounter Visit Diagnoses Diagnosis 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
--- OUTSIDE RECORDS SUMMARY | 2024-02-24 15:35 | XMS_ITS | Encounter Summary ---
Author Organization [facility] Address [address] [place] [address] Care Team Providers Care Wheat Inspector Name Role Phone Terence Ring Primary Care Provider [phone] Encounter Details Date Type Department Care Team (Late st Contact Info) Description 01/28/2021 Telephone [facility] Endocrinology [address] [facility], [address] [place] [address] Geraldine Doe, HAULING CONTRACTOR [address] [facility] [address] [place] [address] Social History Tobacco Use Types [...] optimal time of day to reach caller: [phone] Note: Please do not reply to this message. Follow-up communication and further actions as a result of this message need to be communicated with the patient directly, if the patient is not active onMyChart. If the patient is active on MyChart, they will receive notification of the communication/outcome via [employer]. documented in this encounter Plan of Treatment Upcoming Encounters Date Type Department Care Team (Late st Contact Info) Description 03/07/2024 1:40 PM EST Office Visit [facility] [place] [address] [facility], [address] [place] [address] Naeem Blunt MD [address] [place] [address] documented as of this encounter Visit Diagnoses Not on filedocumented in this encounter Additional Health Concerns Infection Onset Date Last Indicated Resolved Time MRSA Comment:Positive blood culture 03/03/2019 01/30/2024 documented as of this encounter Care Teams Wheat Inspector Relationship Specialty Start Date End Date Terence Ring [facility] [place] [address] PCP - General 08/09/20 03/23/23 documented as of this encounter
--- OUTSIDE RECORDS SUMMARY | 2024-02-24 15:35 | XMS_ITS | Encounter Summary ---
Author Organization [facility] Address [address] [place] [address] Care Team Providers Care Commercial Food Instructor Name Role Phone Terence Ring Primary Care Provider [phone] Encounter Details Date Type Department Care Team ([facility] Contact Info) Description 03/11/2022 Plan of Care Documentation [facility] Outpatient Therapy [address] [place] [address] Social History Tobacco Use Types [...] Description 03/07/2024 1:40 PM EST Office Visit [facility] [place] [address] [facility], [address] [place] [address] Naeem Blunt MD [address] [place] [address] documented as of this encounter Visit Diagnoses Not on filedocumented in this encounter Additional Health Concerns Infection Onset Date Last Indicated Resolved Time MRSA Comment:Positive blood culture 03/03/2019 01/30/2024 documented as of this encounter Care Teams Commercial Food Instructor Relationship Specialty Start Date End Date Terence Ring [facility] [employer] [place] [id number] PCP - General 08/09/20 03/23/23 documented as of this encounter
--- OUTSIDE RECORDS SUMMARY | 2024-02-24 15:35 | XMS_ITS | Encounter Summary ---
Author Organization [facility] Address [address] [place] [address] Care Team Providers Care Spring Winder Name Role Phone Terence Ring Primary Care Provider [phone] Judy Minaya EXTRACTION MACHINE OPERATOR Unavailable Unavailable Erik Hurley MD Primary Care Provider [phone] Pcp, No Primary Care Provider UnavailCierra Sanchez EXTRACTION MACHINE OPERATOR Unavailable UnavailErik Nolasco MD Primary Care Provider [phone] Pcp, No Primary Care Provider UnavailCeci Mclean EXTRACTION MACHINE OPERATOR Unavailable Unavailable Encounter Details Date Type Department Care Team (Late Contact Info) Description 08/07/2021 Orders Only External Location [address] [place] [address] Gonzalo Almonte MD [address] [facility] [address] [place] [address] Social History Tobacco Use Types Packs/Day Years [...] Encounters Date Type Department Care Team ([facility] Contact Info) Description 03/07/2024 1:40 PM EST Office Visit [facility] [place] [address] [facility], [address] [place] [address] Naeem Blunt MD [address] [place] [address] documented as of this encounter Procedures Procedure [...] documented as of this encounter Care Teams Spring Winder Relationship Specialty Start Date End Date Terence Ring [address] [place] [address] PCP - General 08/09/20 03/23/23 Erik Hurley MD [address] [place] [address] PCP - General 03/24/23 06/13/23 Pcp, No [address] [place] [address] PCP - General Family Medicine 06/14/23 06/17/23 Erik Hurley MD [address] [place] [address] PCP - General 06/18/23 01/29/24 Pcp, No [address] [place] [address] PCP - General Family Medicine 01/30/24 Jduy Minaya, [employer] [place] [address] TCM Nurse 02/16/23 03/18/23 Cierra Evans, [employer] [place] [address] TCM Nurse 06/18/23 06/18/23 Ceci Greene, EXTRACTION MACHINE OPERATOR [employer] [place] [address] TCM Nurse 02/07/24 03/08/24 documented as of this encounter
--- OUTSIDE RECORDS SUMMARY | 2024-02-24 15:35 | XMS_ITS | Encounter Summary ---
Author Organization [facility] Address [address] [place] [address] Care Team Providers Care Fire Medic Name Role Phone Terence Ring Primary Care Provider [phone] Encounter Details Date Type Department Care Team [...] Description 03/07/2024 1:40 PM EST Office Visit [facility] [place] [address] [facility], [address] [place] [address] Naeem Blunt MD [address] [place] [address] documented as of this encounter Visit Diagnoses Not on filedocumented in this encounter Additional Health Concerns Infection Onset Date Last Indicated Resolved Time MRSA Comment:Positive blood culture 03/03/2019 01/30/2024 documented as of this encounter Care Teams Fire Medic Relationship Specialty Start Date End Date Terence Ring [facility] [place] [address] PCP - General 08/09/20 03/23/23 documented as of this encounter
--- OUTSIDE RECORDS SUMMARY | 2024-02-24 15:35 | XMS_ITS | Encounter Summary ---
Author Organization [facility] Address [address] [place] [address] Care Team Providers Care Brush Head Maker Name Role Phone Terence Ring Primary Care Provider [phone] Encounter Details Date Type Department Care Team [...] Description 03/07/2024 1:40 PM EST Office Visit [facility] [place] [address] [facility], [address] [place] [address] Naeem Blunt MD [address] [place] [address] documented as of this encounter Visit Diagnoses Not on filedocumented in this encounter Additional Health Concerns Infection Onset Date Last Indicated Resolved Time MRSA Comment:Positive blood culture 03/03/2019 01/30/2024 documented as of this encounter Care Teams Brush Head Maker Relationship Specialty Start Date End Date Terence Ring [facility] [place] [address] PCP - General 08/09/20 03/23/23 documented as of this encounter
--- OUTSIDE RECORDS SUMMARY | 2024-02-24 15:35 | XMS_ITS | Encounter Summary ---
Author Organization [facility] Address [address] [place] [address] Care Team Providers Care Voting Machine Repairer Name Role Phone Terence Ring Primary Care Provider [phone] Encounter Details Date Type Department Care Team [...] Description 03/07/2024 1:40 PM EST Office Visit [facility] [place] [address] [facility], [address] [place] [address] Naeem Blunt MD [address] [place] [address] documented as of this encounter Visit Diagnoses Not on filedocumented in this encounter Additional Health Concerns Infection Onset Date Last Indicated Resolved Time MRSA Comment:Positive blood culture 03/03/2019 01/30/2024 documented as of this encounter Care Teams Voting Machine Repairer Relationship Specialty Start Date End Date Terence Ring [facility] [place] [address] PCP - General 08/09/20 03/23/23 documented as of this encounter
--- OUTSIDE RECORDS SUMMARY | 2024-02-24 15:35 | XMS_ITS | Encounter Summary ---
Author Organization 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) Impaired mobility Ajay Goddard MD [address] [facility] [address] [place] [address] Phone: tel: fax: [facility] Outpatient Therapy [address] [place] [address] Phone: tel: fax: Referral ID Status Reason Start Date Expiration Date V isits Requested Visits Authorized [id number] Closed Specialty Services Required 03/06/2022 10/30/2022 1 44 Encounter Details Date Type Department Care Team (Latest Contact Info) Description 04/01/2022 8:57 AM EST - 04/01/2022 11:59 PM EST Hospital Encounter [facility] Outpatient Therapy [address] [place] [address] Madelyn Ovalles Above knee amputation [...] - OvallesMaryMadelyn - 04/01/2022 9:30 AM EST [facility] Orthopedic Rehabilitation Daily Note Name: Buzz Hurley : 1965 Diagnosis: L transfemoral amputation Time In: 9:24 Time Out: 10:17 SUBJECTIVE Patient reports that he has not fallen since his last appointment. He reports that he has ordered Swell no More from [facility] [facility]. It's a medicine that is guaranteed to [...] Description 03/07/2024 1:40 PM EST Office Visit [facility] [place] [address] 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
--- OUTSIDE RECORDS SUMMARY | 2024-02-24 15:35 | XMS_ITS | Encounter Summary ---
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) Impaired mobility Ajay Goddard MD [address] [facility] [address] [place] [address] Phone: tel: fax: [facility] Outpatient Therapy [address] [place] [address] Phone: tel: fax: Referral ID Status Reason Start Date Expiration Date V isits Requested Visits Authorized [id number] Closed Specialty Services Required 03/06/2022 10/30/2022 1 44 Encounter Details Date Type Department Care Team (Latest Contact Info) Description 04/10/2022 8:55 AM EST - 04/10/2022 11:59 PM EST Hospital Encounter [facility] Outpatient Therapy [address] [place] [address] Madelyn Ovalles Above knee amputation [...] Madelyn Ovalles - 04/10/2022 9:30 AM EST [facility] Orthopedic Rehabilitation Daily Note Name: [...] Description 03/07/2024 1:40 PM EST Office Visit [facility] [place] [address] [facility], [address] [place] [address] Naeem Blunt MD [address] [place] [address] documented as of this encounter Visit Diagnoses Diagnosis 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
--- OUTSIDE RECORDS SUMMARY | 2024-02-24 15:35 | XMS_ITS | Encounter Summary ---
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) Impaired mobility Ajay Goddard MD [address] [facility] [address] [place] [address] Phone: tel: fax: [facility] Outpatient Therapy [address] [place] [address] Phone: tel: fax: Referral ID Status Reason Start Date Expiration Date V isits Requested Visits Authorized [id number] Closed Specialty Services Required 03/06/2022 10/30/2022 1 44 Encounter Details Date Type Department Care Team (Latest Contact Info) Description 04/03/2022 9:30 AM EST - 04/03/2022 11:59 PM EST Hospital Encounter [facility] Outpatient Therapy [address] [place] [address] Madelyn Ovalles Above knee amputation [...] Madelyn Ovalles - 04/03/2022 9:30 AM EST [facility] Orthopedic Rehabilitation Daily Note Name: [...] control, XL harness with thigh straps. LBQC [id number] with cues for increased prosthetic stance phase [...] Description 03/07/2024 1:40 PM EST Office Visit [facility] [place] [address] [facility], [address] [place] [address] Naeem Blunt MD [address] [place] [address] documented as of this encounter Visit Diagnoses Diagnosis 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)- Primary Impaired mobility Other ill-defined conditions documented in this encounter Additional Health Concerns Infection Onset Date Last Indicated Resolved Time MRSA Comment:Positive blood culture 03/03/2019 01/30/2024 documented as of this encounter Care Teams Bedspread Cutter Relationship Specialty Start Date End Date Terence Ring [address] [place] [address] PCP - General 08/09/20 03/23/23 documented as of this encounter
--- OUTSIDE RECORDS SUMMARY | 2024-02-24 15:35 | XMS_ITS | Encounter Summary ---
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) Impaired mobility Ajay Goddard MD [address] [address] Phone: tel: fax: [facility] Outpatient Therapy [address] [place] [address] Phone: tel: fax: Referral ID Status Reason Start Date Expiration Date V isits Requested Visits Authorized [id number] Closed Specialty Services Required 03/06/2022 10/30/2022 1 44 Scheduling Instructions [facility] Reason for Visit * Consultation (Routine) - Closed Specialty Diagnoses / Procedures Referred By Neno noel Referred To Contact Physical Therapy Diagnoses 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) Impaired mobility Ajay Goddard MD [address] [address] Phone: tel: fax: [facility] Outpatient Therapy [address] [place] [address] Phone: tel: fax: Referral ID Status Reason Start Date Expiration Date V isits Requested Visits Authorized [id number] Closed Specialty Services Required 03/06/2022 10/30/2022 1 44 Encounter Details Date Type Department Care Team (Latest Contact Info) Description 03/11/2022 9:05 AM EST - 03/11/2022 11:59 PM EST Hospital Encounter [facility] Outpatient Therapy [address] [place] [address] Madelyn Ovalles Above knee amputation of left [...] from the original note were not included. [facility] Orthopedic Rehabilitation PT Evaluation Date: 03/11/22 [...] OF STENT N/A Cath Stent Placement from [employer] CHOLECYSTECTOMY N/A Cholecystectomy from [employer] SUBJECTIVE Patient reports that he had appointment with ed case manager last week for foot adjustment. He is wearing his prosthesis all day long. He reports he's noticing a crease on residual limb after removal of prosthesis at end of day that has resolved by next morning. He has spoken with the ed case manager aboutit, but they haven't been able to [...] to self manage. Barriers to learning: None Cultural/Jainism beliefs: None that will affect treatment Rehab Potential/Prognosis: Good Personal Factors/Comorbidities Affecting Care: Pre-Injury Condition , Prior history of condition, and Fear avoidance behavior Complexity: Moderate Complexity using Standard PT Assessment (35162) PLAN Patient to be seen 2 times [...] with 1 Upper Extremity assist for ADL's. Correction Goals (12 weeks): Patient will demonstrate > [...] Description 03/07/2024 1:40 PM EST Office Visit [facility] [place] [address] [facility], [address] [place] [address] Naeem Blunt MD [address] [place] [address] Scheduled Referrals Name Type Priority [...] documented as of this encounter Care Teams Client Strategist Relationship Specialty Start Date End Date Terence Ring [address] [place] [address] PCP - General 08/09/20 03/23/23 documented as of this encounter
--- OUTSIDE RECORDS SUMMARY | 2024-02-24 15:35 | XMS_ITS | Encounter Summary ---
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) Erik Hurley MD [address] [place] [address] Phone: tel: fax: [facility] Outpatient Therapy [address] [place] [address] Phone: tel: fax: Referral ID Status Reason Start Date Expiration Date V isits Requested Visits Authorized [id number] Closed Consult and Treat 05/13/2022 11/12/2023 1 1 Reason for Visit * Consultation (Routine) - Closed Specialty Diagnoses / Procedures Referred By Contac t Referred To Contact Physical Therapy Diagnoses 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) Impaired mobility Ajay Goddard MD [address] [place] [id number] [place] [address] Phone: tel: fax: [facility] Outpatient Therapy [address] [place] [address] Phone: tel: fax: Referral ID Status Reason Start Date Expiration Date V isits Requested Visits Authorized [id number] Closed Specialty Services Required 03/06/2022 10/30/2022 1 44 Encounter Details Date Type Department Care Team (Latest Contact Info) Description 05/13/2022 9:11 AM EST - 05/13/2022 11:59 PM EST Hospital Encounter [facility] Outpatient Therapy [address] [place] [address] Madelyn Ovalles Above knee amputation of left [...] Madelyn Ovalles - 05/13/2022 9:30 AM EST [facility] Orthopedic Rehabilitation PT 30 Day [...] OF STENT N/A Cath Stent Placement from [employer] CHOLECYSTECTOMY N/A Cholecystectomy from [employer] SUBJECTIVE Patient reports that he has not [...] making slow, but steady, gains. Primary Language: Thai Needs communication device: No Does the patient understand basic information? Yes, able to self manage. Barriers to learning: None Cultural/Baptist beliefs: None that will affect treatment Rehab Potential/Prognosis: Good Personal Factors/Comorbidities Affecting Care: Pre-Injury Condition , Prior history of condition, and Fear avoidance behavior Complexity: Moderate Complexity using Standard PT Assessment (55261) PLAN Patient to be seen 2 times [...] with 1 Upper Extremity assist for ADL's. Registered Pharmacist Goals (12 weeks): Patient will demonstrate > [...] Description 03/07/2024 1:40 PM EST Office Visit [facility] [place] [address] [facility], [address] [place] [address] Naeem Blunt MD [address] [place] [address] Scheduled Referrals Name Type Priority Associated [...] documented as of this encounter Care Teams Customs Port Director Relationship Specialty Start Date End Date Terence Ring [facility] [place] [address] PCP - General 08/09/20 03/23/23 documented as of this encounter
--- OUTSIDE RECORDS SUMMARY | 2024-02-24 15:35 | XMS_ITS | Encounter Summary ---
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) Impaired mobility Ajay Goddard MD [address] [facility] [address] [place] [address] Phone: tel: fax: [facility] Outpatient Therapy [address] [place] [address] Phone: tel: fax: Referral ID Status Reason Start Date Expiration Date V isits Requested Visits Authorized [id number] Closed Specialty Services Required 03/06/2022 10/30/2022 1 44 Encounter Details Date Type Department Care Team (Latest Contact Info) Description 05/20/2022 9:22 AM EST - 05/20/2022 11:59 PM EST Hospital Encounter [facility] Outpatient Therapy [address] [place] [address] Madelyn Ovalles Acquired absence of [...] Madelyn Ovalles - 05/20/2022 9:45 AM EST [facility] Orthopedic Rehabilitation Daily Note [...] Description 03/07/2024 1:40 PM EST Office Visit [facility] [place] [address] [facility], [address] [place] [address] Naeem Blunt MD [address] [place] [address] documented as of this encounter Visit Diagnoses Diagnosis 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
--- OUTSIDE RECORDS SUMMARY | 2024-02-24 15:35 | XMS_ITS | Encounter Summary ---
Author Organization [facility] Address [address] [place] [address] Care Team Providers Care Bass String Winder Name Role Phone Terence Ring Primary Care Provider [phone] Encounter Details Date Type Department Care Team [...] Description 03/07/2024 1:40 PM EST Office Visit [facility] [place] [address] [facility], [address] [place] [address] Naeem Blunt MD [address] [place] [address] documented as of this encounter Visit Diagnoses Not on filedocumented in this encounter Additional Health Concerns Infection Onset Date Last Indicated Resolved Time MRSA Comment:Positive blood culture 03/03/2019 01/30/2024 documented as of this encounter Care Teams Bass String Winder Relationship Specialty Start Date End Date Terence Ring [facility] [place] [address] PCP - General 08/09/20 03/23/23 documented as of this encounter
--- OUTSIDE RECORDS SUMMARY | 2024-02-24 15:35 | XMS_ITS | Encounter Summary ---
Author Organization [facility] Address [address] [place] [address] Care Team Providers Care Title Investigator Name Role Phone Terence Ring Primary Care Provider [phone] Encounter Details Date Type Department Care Team ([facility] Contact Info) Description 04/17/2022 Plan of Care Documentation [facility] Outpatient Therapy [address] [place] [address] Social History Tobacco Use Types [...] Description 03/07/2024 1:40 PM EST Office Visit [facility] [place] [address] [facility], [address] [place] [address] Naeem Blunt MD [address] [place] [address] documented as of this encounter Visit Diagnoses Not on filedocumented in this encounter Additional Health Concerns Infection Onset Date Last Indicated Resolved Time MRSA Comment:Positive blood culture 03/03/2019 01/30/2024 documented as of this encounter Care Teams Title Investigator Relationship Specialty Start Date End Date Terence Ring [facility] [place] [id number] PCP - General 08/09/20 03/23/23 documented as of this encounter
--- OUTSIDE RECORDS SUMMARY | 2024-02-24 15:35 | XMS_ITS | Encounter Summary ---
Author Organization [facility] Address [address] [place] [address] Care Team Providers Care Incident Engineer Name Role Phone Terence Ring Primary [...] Description 03/07/2024 1:40 PM EST Office Visit [facility] [place] [address] [facility], [address] [place] [address] Naeem Blunt MD [address] [place] [address] documented as of this encounter Visit Diagnoses Not on filedocumented in this encounter Additional Health Concerns Infection Onset Date Last Indicated Resolved Time MRSA Comment:Positive blood culture 03/03/2019 01/30/2024 documented as of this encounter Care Teams Incident Engineer Relationship Specialty Start Date End Date Terence Ring [facility] [place] [address] PCP - General 08/09/20 03/23/23 documented as of this encounter
--- OUTSIDE RECORDS SUMMARY | 2024-02-24 15:35 | XMS_ITS | Encounter Summary ---
Author Organization [facility] Address [address] [place] [address] Care Team Providers Care Salvage Cutter Name Role Phone Terence Ring Primary Care Provider [phone] Encounter Details Date Type Department Care Team [...] 03/07/2024 1:40 PM EST Office Visit [facility] [place] [address] [facility], [address] [place] [address] Naeem Blunt MD [address] [place] [address] documented as of this encounter Visit Diagnoses Not on filedocumented in this encounter Additional Health Concerns Infection Onset Date Last Indicated Resolved Time MRSA Comment:Positive blood culture 03/03/2019 01/30/2024 documented as of this encounter Care Teams Salvage Cutter Relationship Specialty Start Date End Date Terence Ring [facility] [place] [address] PCP - General 08/09/20 03/23/23 documented as of this encounter
--- OUTSIDE RECORDS SUMMARY | 2024-02-24 15:35 | XMS_ITS | Encounter Summary ---
Author Organization Address [address] [place] [address] Care Team Providers Care Laundry Machine Operator Name Role Phone Terence Ring Primary Care Provider [phone] Judy Minaya ALTERATION WORKER Unavailable Unavailable Erik Hurley MD Primary Care Provider [phone] Pcp, No Primary Care Provider UnavailCierra Sanchez ALTERATION WORKER Unavailable Unavailabl e Erik Hurley MD Primary Care Provider [phone] Pcp, No Primary Care Provider Unavailabl Ceci Baires ALTERATION WORKER Unavailable Unavailable Reason for Visit * Reason Comments Med Refill Encounter Details Date Type Department Care Team (Late Contact Info) Description 10/29/2021 Refill Edgar [facility] End[facility] [address] [facility], [address] [place] [address] Geraldine Doe, CELLOPHANE BATH MIXER [address] [facility] [address] [place] [address] Social History Tobacco Use Types [...] Description 03/07/2024 1:40 PM EST Office Visit [facility] [place] [address] [facility], [address] [place] [address] Naeem Blunt MD [address] [place] [address] documented as of this encounter [...] documented as of this encounter Care Teams Laundry Machine Operator Relationship Specialty Start Date End Date Terence Ring [address] [place] [address] PCP - General 08/09/20 03/23/23 Erik Hurley MD [address] [place] [address] PCP - General 03/24/23 06/13/23 Pcp, No [address] [place] [address] PCP - General Family Medicine 06/14/23 06/17/23 Erik Hurley MD [address] [place] [address] PCP - General 06/18/23 01/29/24 Pcp, No [address] [place] [address] PCP - General Family Medicine 01/30/24 Judy Minaya LPN [employer] [place] [address] TCM Nurse 02/16/23 03/18/23 Cierra Evans LPN [employer] [place] [address] TCM Nurse 06/18/23 06/18/23 Ceci Greene LPN [employer] [place] [address] TCM Nurse 02/07/24 03/08/24 documented as of this encounter
--- OUTSIDE RECORDS SUMMARY | 2024-02-24 15:35 | XMS_ITS | Encounter Summary ---
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) Impaired mobility Ajay Goddard MD [address] [facility] [address] [place] [address] Phone: tel: fax: [facility] [address] [place] [address] Phone: tel: fax: Referral ID Status Reason Start Date Expiration Date V isits Requested Visits Authorized [id number] Closed Specialty Services Required 03/06/2022 10/30/2022 1 44 Encounter Details Date Type Department Care Team (Latest Contact Info) Description 03/13/2022 8:51 AM EST - 03/13/2022 11:59 PM EST Hospital Encounter [facility] [address] [place] [address] Madelyn Ovalles Above knee amputation [...] Madelyn Ovalles - 03/13/2022 9:30 AM EST [facility] [...] EST Office Visit [facility] [place] [address] [facility], [address] [place] [address] Naeem Blunt MD [address] [place] [address] documented as of this encounter Visit Diagnoses Diagnosis 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
--- OUTSIDE RECORDS SUMMARY | 2024-02-24 15:35 | XMS_ITS | Encounter Summary ---
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) Impaired mobility Ajay Goddard MD [address] [facility] [address] [place] [address] Phone: tel: fax: [facility] [address] [place] [address] Phone: tel: fax: Referral ID Status Reason Start Date Expiration Date V isits Requested Visits Authorized [id number] Closed Specialty Services Required 03/06/2022 10/30/2022 1 44 Encounter Details Date Type Department Care Team (Latest Contact Info) Description 04/17/2022 8:40 AM EST - 04/17/2022 11:59 PM EST Hospital Encounter [facility] [address] [place] [address] Madelyn Ovalles Above knee amputation [...] Madelyn Ovalles - 04/17/2022 9:30 AM EST [facility] Orthopedic [...] OF STENT N/A Cath Stent Placement from [facility] CHOLECYSTECTOMY N/A Cholecystectomy from [facility] SUBJECTIVE Patient reports that he feels things [...] assessment. Overall making steady gains. Primary Language: Hong Konger Needs communication device: No Does the patient understand basic information? Yes, able to self manage. Barriers to learning: None Cultural/Presybeterian beliefs: None that will affect treatment Rehab Potential/Prognosis: Good Personal Factors/Comorbidities Affecting Care: Pre-Injury Condition , Prior history of condition, and Fear avoidance behavior Complexity: Moderate Complexity using Standard PT Assessment (39709) PLAN Patient to be seen 2 times [...] with 1 Upper Extremity assist for ADL's. 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
--- OUTSIDE RECORDS SUMMARY | 2024-02-24 15:35 | XMS_ITS | Encounter Summary ---
Author Organization [facility] Address [address] [place] [address] Care Team Providers Care Renewable Energy Trader Name Role Phone Terence Ring Primary Care Provider [phone] Encounter Details Date Type Department Care Team [...] Description 03/07/2024 1:40 PM EST Office Visit [facility] [place] [address] [facility], [address] [place] [address] Naeem Blunt MD [address] [place] [address] documented as of this encounter Visit Diagnoses Not on filedocumented in this encounter Additional Health Concerns Infection Onset Date Last Indicated Resolved Time MRSA Comment:Positive blood culture 03/03/2019 01/30/2024 documented as of this encounter Care Teams Renewable Energy Trader Relationship Specialty Start Date End Date Terence Ring [facility] [place] [address] PCP - General 08/09/20 03/23/23 documented as of this encounter
--- OUTSIDE RECORDS SUMMARY | 2024-02-24 15:35 | XMS_ITS | Encounter Summary ---
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) Impaired mobility Ajay Goddard MD [address] [facility] [address] [place] [address] Phone: tel: fax: [facility] [address] [place] [address] Phone: tel: fax: Referral ID Status Reason Start Date Expiration Date V isits Requested Visits Authorized [id number] Closed Specialty Services Required 03/06/2022 10/30/2022 1 44 Encounter Details Date Type Department Care Team (Latest Contact Info) Description 04/08/2022 9:30 AM EST - 04/08/2022 11:59 PM EST Hospital Encounter [facility] [address] [place] [address] Madelyn Ovalles Above knee amputation [...] Madelyn Ovalles - 04/08/2022 9:30 AM EST [facility] Daily Note Name: Buzz Hurley [...] Description 03/07/2024 1:40 PM EST Office Visit [facility] [place] [address] [facility] [address], [address] [place] [address] Naeem Blunt MD [address] [place] [address] documented as of this encounter Visit Diagnoses Diagnosis 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
--- OUTSIDE RECORDS SUMMARY | 2024-02-24 15:35 | XMS_ITS | Encounter Summary ---
Author Organization [facility] Address [address] [place] [address] Care Team Providers Care Collator Operator Name Role Phone Terence Ring Primary Care Provider [phone] Encounter Details Date Type Department Care Team [...] Description 03/07/2024 1:40 PM EST Office Visit [facility] [place] [address] [facility], [address] [place] [address] Naeem Blunt MD [address] [place] [address] documented as of this encounter Visit Diagnoses Not on filedocumented in this encounter Additional Health Concerns Infection Onset Date Last Indicated Resolved Time MRSA Comment:Positive blood culture 03/03/2019 01/30/2024 documented as of this encounter Care Teams Collator Operator Relationship Specialty Start Date End Date Terence Ring [facility] [employer] [place] [address] PCP - General 08/09/20 03/23/23 documented as of this encounter
--- OUTSIDE RECORDS SUMMARY | 2024-02-24 15:36 | XMS_ITS ---
Author Organization [facility] Address [address] [place] [address] Care Team Providers Care Animal Eviscerator Name Role Phone Pcp, No Primary Care Provider Ceci Pereira LPN Unavailable Unavailable Transitional Care Management Status:Closed (Closed) Start date:06/18/2023 Enrollment date:06/18/2023 Enrollment reason:Identified using hospital discharge data End date:06/18/2023 Close reason:Patient Declined Overview This episode type is for outpatient care managers enrolling patients in the CMS Transitional Care Management program. Continued Care and Services Coordination
--- OUTSIDE RECORDS SUMMARY | 2024-02-24 15:36 | XMS_ITS | Encounter Summary ---
Author Organization [facility] Address [address] [place] [address] Care Team Providers Care Sports Announcer Name Role Phone Unavailable Primary Care Provider Unavailabl e Encounter Details Date Type Department Care Team (Latest Contact Info) Description 03/02/2019 1:28 PM EST - 03/10/2019 3:05 PM EST Hospital Encounter PAV A Inpatient [address] [place] [address] Ilan Hickey MD Internal Medicine-Hospita lists [address] [facility], [facility] Sepsis due to methicillin resistant Staphylococcus aureus ([facility]) Social History Tobacco Use Types Packs/Day Years [...] 24 Hours Discharge Disposition Answers: Acute Rehab [facility] tel> [phone] (RN REPORT) fax> [phone] ( d/c summary faxed) Is Home Health Needed? If Yes, Specify Agency Name and Service Needed. Answers: No Is DME Needed? If Yes, Select Type of Equipment Needed and DME Company. Answers: Wheelchair s/p L AKA patient to d/c via [facility] shuttle and will require w/c for [...] Answers: Yes PAC to schedule [facility] f/u. [facility] to schedule PCP f/u. Does the Patient Have Transportation to Follow up Appointments? Answers: Yes Scholarship? Answers: No WES? Answers: No Medicare Second Notice? Answers: Not applicable Were Services Declined? Answers: No Additional Comments: Notes: poc reviewed with team and patient is medically ready for d/c to [facility]. PT/OT/ PMR rec acute rehab. CM met with patient and he was agreeable to poc. PICC line placement for vancomycin 1000 milligram(s) intravenous every 12 hours through 03/19/19. Patient to d/c to via shuttle at 3:15 pm. No further follow at this time. I certify that the opportunity to review post-acute care facilities/agencies efficiency and quality data was provided to patient/family/legal manufacturers service representative. Answers: Yes Electronically signed by: Dara [...] uncontrolled IDDM with peripheral neuropathy,CAD, COPD, CHF, VA, s/p PCI x 2 and HTN who [...] for neuropathic pain. Need close FU with passenger relations representative for right foot care. # Uncontrolled insulin dependent DMII. - A1c 16. - Discharged on 01/05/10 + SSI. 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 No. [facility]: [facility] Condition[facility] (signs or symptoms of potential [...] with: [facility] vascular surgery. Follow up with: Glass Belt Sander/DM. Follow up with: Assistant Analyst. Follow up with: PCP. ATTESTATION STATEMENTS: Attending [...] 10-Mar-2019 11:42. Indications for this procedure included [facility] antibiotics. Risks, benefits and alternatives to the [...] vein. A CT compatible single lumen 4 polish BARD-Solo catheter was used. Catheter lot number: [id number]. The catheter was trimmed at 50 cm [...] andCAD s/p PCI x2 who presented to [facility] on 03/02 for LLE cellulitis. Extensive chart review of the hospital course and complications revealed the following: The patient reported initial erythema started 2 months ago on his foot that he attempted to treat on his own, however, it continued to extend and at presentation at [facility] extended to his knee. He also reported [...] peripheral neuropathy CHF, unknown EF CAD, s/p VA with PCI x 2 approximately 2 years [...] Status: Children: 3 kids Residence: Lives in [place], [place] in a single level Duplex wit 2 HERSON by himself. 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 Please do not hesitate to call if you have questions [phone]. Keith Pace DO, MS PGY-III, Physical Medicine [...] Authored Last Updated: 08-Mar-19 10:34 by Xavier Olson (Resident) * Social Care Assessment Summary - Robinson Fields MD - 03/08/2019 12:00 AM EST Pastoral Care Note: Pastoral Care Note: This visit was initiated by the admissions assistant in relation to pre-surgery. Additional Comments: Coating Engineer offered presence and informed patient/family about the 19/10 admissions assistant availability. Pastoral Care: Phone [phone], Pager # [phone]. Electronic Signatures: Bud Blood (Coating Engineer) (Signed 08-Mar-19 08:13) Authored: Pastoral Care Note Last Updated: 08-Mar-19 08:13 by Bud Blood (Coating Engineer) * Op Note - Robinson Fields MD - 03/08/2019 12:00 AM EST [facility] [place] [place] OPER[facility]IVE REPORT Patient Name: ROBERT HURLEY JR [facility] Number: [id number] Date of : 1965 Date of Admission: 03/02/2019 Date of Procedure: 03/08/2019 Attending Physician: CARSON ORTIZ MD [facility] PRE[facility]IVE DIAGNOSIS: Left leg infection. POSTOPERATIVE [...] VASCULAR SURGERY DHL/wmx Dictated Date/Time: 03/08/2019 10:25 Donor Relations Manager Date/Time: 03/08/2019 15:47 Document Number: [id number] Job Number: [id number] REFERRING PHYSICIAN: PRIMARY CARE PHYSICIAN: NIURKA HURLEY MD [address] [place] [address] REFERRING PHYSICIAN: DICTATED CC: Document is Signed NOTE: supplied by interface * Op Note - Carson Ortiz - 03/08/2019 12:00 AM EST Pre-Op Diagnosis: non-healing wound of left lower extremity. Pre-Op Diagnosis: 02. Active Dx: Cellulitis: Post-Op Diagnosis: Same. Procedures: Left above knee amputation. Primary Surgeon: Dr. Carson Ortiz. Office Associate(s): Ryanne Cueva, MS3. Anesthesia: Regional Block MAC. [...] General Last Updated: 08-Mar-19 14:30 by Carson rOtiz MD (Attending) * Pre-Procedure Assessment - Robinson [...] and in agreement to be referred to [facility]. Referral to [facility] initiated on this day. Team updated. [...] Fields MD - 03/05/2019 12:00 AM EST [place], [place] OPERATIVE REPORT Patient Name: ROBERT HURLEY Jr Hospital Number: [id number] Date of : 1965 Date of Admission: 03/02/2019 Date of Procedure: 03/05/2019 Attending Physician: CARSON ORTIZ MD Patient Location: [id number] A PREOPERATIVE DIAGNOSIS: Left leg infection. POSTOPERATIVE DIAGNOSIS: Left leg infection. SURGERY PERFORMED: Incision and drainage of left leg abscess, excisional debridement of left lower leg tissue ATTENDING PHYSICIAN: Carson Ortiz MD. ] SMALL PARTS ASSEMBLER: Shakira Cohen DO. ESTIMATED BLOOD LOSS: Minimal. [...] VASCULAR SURGERY DHL/pws Dictated Date/Time: 03/05/2019 14:37 Donor Relations Manager Date/Time: 03/06/2019 06:09 Document Number: [id number] Job Number: [id number] Document is Signed NOTE: supplied by interface * Op Note - Carson Ortiz - 03/05/2019 12:00 AM EST Pre-Op Diagnosis: LLE abscess, hx of poorly controlled diabetes. Pre-Op Diagnosis: 02. Active Dx: Cellulitis: Post-Op Diagnosis: Same. Procedures: 1. I+D of LLE extremity. Primary Surgeon: Angel. Office Associate(s): Vicki. Anesthesia: GA-ET. Estimasted Blood Loss: 10 [...] and education at time of discharge. hosp health care coach will follow during stay. Home health care coach will visit within 48 hours of [...] incorrect, please place Change ADT order in [facility] for registration to update PCP) Transportation Home at Time of Discharge Answers: Family/Friend Transportation to Follow up Appointments Answers: Family or Friend will Provide Does Patient Have Living Will/Advance Directives? If Yes, Instruct Patient/Family to Provide a Copy. Answers: No Does Patient Have a Power of Medical I D Sales? If Yes, Please Specify Who and Instruct [...] home and relies on his brother or oriental orthodox member friends for transportation needs and will request the latter for assistance in transport home once d/c'd. Pt has a Rollator and cane that he purchased himself. No HH, LW/AD, or POA. His PCP is Niurka Fairchild with last appointment approx 2 months ago. Pharmacy: [facility] in [place], [place]. Insurance: Recommendi. CM will follow. Electronically signed by: Kiran [...] patient notes that he put off coming [facility] because [he] thought it would get [...] Orders: * Hemogram With Diff, Lab Information: [id number], 02-Mar-2019, Results Received, Standard * Lactic Acid, Venous, Lab Information: [id number], 02-Mar-2019, Results Received, Standard * Comprehensive Metabolic Panel, Lab Information: [id number], 02-Mar-2019, Results Received, Standard * [place] Hepatitis C Antibody, Lab Information: [id number], 02-Mar-2019, Results Received, Standard * Hemoglobin A1c, Lab Information: [id number], 02-Mar-2019, Results Received, Standard * Magnesium Level, Lab Information: [id number], 02-Mar-2019, Results Received, Standard * Phosphorus, Lab Information: [id number], 02-Mar-2019, Results Received, Standard * Extra Tube, Green, Lab Information: [id number], 02-Mar-2019, Results Received, Standard * Sodium, Urine Random, Lab Information: [id number], 02-Mar-2019, Results Received, Standard * Hemoglobin A1c, 03-Mar-2019, Discontinued, Standard * Basic Metabolic Panel, Lab Information: [id number], 03-Mar-2019, Results Received, Standard * Hemogram With Diff, Lab Information: [id number], 03-Mar-2019, Results Received, Standard * Magnesium Level, Lab Information: [id number], 03-Mar-2019, Results Received, Standard * Osmolality, Plasma, Lab Information: [id number], 03-Mar-2019, Results Received, Standard * Phosphorus, Lab Information: [id number], 03-Mar-2019, Results Received, Standard * Blood Culture (Aerobic/Anaerob Set), Blood ([facility]) 03-Mar-2019, Collected, Standard * Basic Metabolic Panel, 04-Mar-2019, Pending, Standard * Hemogram, 04-Mar-2019, Pending, Standard * Prothrombin Time, 04-Mar-2019, Pending, Standard * CT Lower Extremity with IV Contrast Left, Radiology Location: ED Method of Transport: Bed RIS Number: [id number], 02-Mar-2019, Results Received, Standard * CTA Abdomen & Pelvis with Runoff, Radiology Location: ED Method of Transport: Bed RIS Number: [id number], 02-Mar-2019, Results Received, Standard * Tib/Fib Left, Bed RIS Number: [id number], 02-Mar-2019, Results Received, Standard * Venous duplex Lower Extremity Unilateral, RIS Number: [id number], 02-Mar-2019, Completed, Standard * Arterial Lower Ext Seg JAILYN/waveforms, RIS Number: [id number], 02-Mar-2019, Discontinued, Standard * Arterial Lower Ext Seg JAILYN/waveforms, RIS Number: [id number], 03-Mar-2019, Results Received, Standard * Acetaminophen, Tablet [...] 02-Mar-2019, Active, Suspend * [facility] 02-[facility], Active, Standard * Insulin Glargine [...] Medicine, 02-Mar-2019, Active, Standard * Final Transfer, [facility] ED - OBS 228 - A;[facility], 02-Mar-2019, Completed, Standard * Final Transfer, 9-115;[facility], 03-Mar-2019, Completed, Standard * Final Transfer, please transfer patient to room 9.115 - thank you.;[facility], 03-Mar-2019,Completed, Standard * Fall Prev Protocol, <Continuous>, 02-Mar-2019, Active, Standard * Nursing Hourly Rounding, Instruction text from [facility]_OBJ_DOC_SN_ED_REGIS, 02-Mar-2019, Active, Standard * Peripheral [...] * Pressure Ulcer CPG, <Continuous> entered by [facility]_OBJ_BRADEN_ORDERS, 03-Mar-2019, Active, Standard * GWN - Pressure [...] * Chief Complaintpain * [facility] [place] [facility] * Transferred From :N/A Chief Complaint Information: * History of Present Illnesspatient c/o pain in lower extremities bilaterally x 3 months Primary Care Physician (PCP): * PCP contacted? No. Home Medications: Vital Sign Assessment: * Riiycjrl029 mm Hg * Huyqxhqbp69 mm Hg * BP Noninvasive Mean77.33 mm Hg * Temperature F97.9 degrees F * Temperature Qrlkrpx56.61 degrees C * Temperatureoral * Heart Rate 107 bpm * Respiratory Rate18 breaths per minute * Pulse Oximetry SpO2 (%)98 percent hemoglobin [place] Coma Scale: [place] Coma Scale: * GCS - [facility] [...] Acuity:3 Triage Completion Time: * Triage Completion [id number] 10:03 Electronic Signatures: Rosalee KILGORE, Macie Hinds [...] Miguelito Avitia MD (Attending) * H&P - Tasha Mandel - 03/02/2019 12:00 AM EST Document Topic: Service/ Team: M12 - Medicine / Internal Medicine Team 12. History and Physical: - Chief Concern: ROBERT Gee JR is a 53y male who presented on 02 March 2019 with LLE rednesss, pain and swelling. History of Present Illness: 53yo male with history of uncontrolled IDDM with peripheral neuropathy,CAD, COPD, CHF, VA, s/p PCI x 2 and HTN who [...] peripheral neuropathy CHF, unknown EF CAD, s/p VA with PCI x 2 approximately 2 years ago HLD HTN COPD Past Surgical History: CCY PCI x 2 Allergy: Penicillin-> vomiting Medications: Has not filled meds since 10/2018 per [facility] in [place] Social History: Smokes 1/2 ppd. Denies ETOH [...] IDDM with peripheral neuropathy, CAD, COPD, CHF, VA, s/p PCIx 2 and HTN who presents [...] at home, but no meds filled per [facility] medication list since 10/2018 - Endocrine consulted [...] diet PPX - lovenox Althea Pinedo PA-C [facility] Medicine [phone] Home Medications: Electronic Signatures: Khris JOHNSON, Althea Crowder (Physician Office Associate) (Signed 02-Mar-19 15:41) Authored: DOCUMENT TOPIC, EVALUATION [...] to make anything. Patient lives alone in [place]. His LLE is erythematous from his knee [...] years ago Social: Patient lives alone in [place] He has 3 children but none live close to him or are able to provide assistance per patient Smokes 1/2 ppd. Started smoking at age 15. Denies any history of alcohol or illicit drug use. Allergies: Penicillin->Other FMH: Reviewed & Non-Contributory Home Medication: Please see [facility] for full list as patient is uncertain of the names of all of his medications. -Cholesterol medication -Lisinopril -Lyrica -Insulin Referring Provider: Dr. Tasha Garcia Primary Care Provider: Dr. Hurley in [place] Bowling Ball Assembler: Dr. Hernandez Review of Systems: A complete [...] or concerns. Cary Madrigal APRN Vascular Surgery [phone] Attending Attestation Statement: I saw and evaluated [...] Medicine - Internal, Medicine Chief Complaint: Requesting [id number] Reason for ConsultDiabetes Recommendations Consult Note: - HISTORY OF PRESENTING ILLNESS: 53yo male with history of uncontrolled type 2 diabetes mellitus with peripheral neuropathy, CAD, COPD, CHF, VA, s/p PCI x 2 and HTN who [...] age 30 -Diabetes provider: PCP ------previously at [facility] (last seen in May 2017) -Current Home [...] picked up this year per [facility] in [place], [place]. Allergies: Penicillin->Other ROS: 14 point ROS [...] planning: -pt would like to follow-up with [facility] and we will help [...] Description 03/07/2024 1:40 PM EST Office Visit [facility] [place] [address], [address] [place] [address] Naeem Blunt MD [address] [place] [address] documented as of this encounter [...] Point of Care. (03/10/2019 11:46 AM EST) [facility] POCT Glucose 169(H) 74 - 99 mg/dL [...] Final Result Performing Organization Address [facility] Phone Number SUNQUEST * (ABNORMAL) Glucose Point [...] ORDERABL ES Final Result Performing Organization Address [facility] Phone Number SUNQUEST * Glucose Point of Care. (03/09/2019 10:12 PM EST) [facility] POCT Glucose 93 74 - 99 mg/dL [...] Final Result Performing Organization Address [facility] de Phone Number SUNQUEST * (ABNORMAL) [...] PM EST 03/09/2019 3:40 PM EST Result [facility] Ilan Hickey MD LAB BLOOD ORDERABL ES Final Result Performing Organization Address [facility] Phone Number SUNQUEST * (ABNORMAL) Glucose Point [...] PM EST 03/09/2019 12:15 PM EST Result [facility] us Ilan Hickey MD LAB BLOOD ORDERABL ES Final Result Performing Organization Address [facility] Phone Number SUNQUEST * (ABNORMAL) Glucose Point [...] AM EST 03/09/2019 4:18 AM EST Ilan Hickey MD LAB BLOOD [...] Final Result Performing Organization Address [facility] de Phone Number SUNQUEST * (ABNORMAL) Glucose Point of Care. (03/08/2019 8:55 PM EST) Pathologist [facility] POCT Glucose 203(H) 74 - 99 mg/dL [...] Final Result Performing Organization Address [facility] de Phone Number SUNQUEST * (ABNORMAL) Glucose Point of Care. (03/08/2019 3:25 PM EST) Pathologist [facility] POCT Glucose 154(H) 74 - 99 mg/dL [...] EST 03/08/2019 3:30 PM EST us Ilan Hickey MD LAB BLOOD ORDERABL ES Final Result Performing Organization Address [facility] de Phone Number VLADIMIR * (ABNORMAL) [...] Final Result Performing Organization Address [facility] de Phone Number VLADIMIR * Surgical Pathology (03/08/2019 10:23 AM EST) 03/08/2019 10:2 3 AM EST 03/08/2019 10:23 AM EST Narrative SUNQUEST - 03/14/2019 6:15 PM EST [place], [place] [address] MR #: [id number] ROBERT HURLEY 1965 (Age: 53) ??MW Collect Date: 03/08/2019 10:23 Receipt Date: 03/08/2019 10:23 Page 1 DEPARTMENT OF PATHOLOGY AND LABORATORY MEDICINE SURGICAL PATHOLOGY REPORT Fax: ??[phone] ?[phone] Email: [email or web address] ? ATTENDING MD: Denise Ortiz M.D. ? Service: M9 ? [facility] OTHER MD(S): ?Reported: 03/14/2019 18:15 DIAGNOSIS Left leg, above-knee amputation: ? Ischemic and suppurative soft-tissue necrosis; subjacent osteomyelitis ? Electronically Signed Out ? dw/03/09/2019 Misti Fisher M.D. ?? CLINICAL HISTORY Preoperative diagnoses left lower extremity diabetic wound Intraoperative findings same Operative procedure cfhjr-mee-fqup/below-knee amputation left lower extremity ??I&D, possible left [...] anterior compartments vasculature were patent on dissection. Women'S Lacrosse Coach sections submitted as follows: Cassette summary: A1: Skin and soft tissue margin A2: Vascular margin A3-A4: Women'S Lacrosse Coach of the wound with underlying necrotic tissue and muscle A5: Women'S Lacrosse Coach of the anterior compartment the vasculature A6: Women'S Lacrosse Coach of posterior compartment vasculature A7: Bone marrow [...] with other specified complication SNOMED CODES: A; [id number] M4040 F: A; 09927, S 85016 DECAL Carson Ortiz MD LAB PATHOLOGY ORDERABLES Final Result Performing Organization Address [facility] Phone Number SUNQUEST * Glucose [...] ORDERABL ES Final Result Performing Organization Address [facility] de Phone Number SUNQUEST * (ABNORMAL) [...] ORDERABL ES Final Result Performing Organization Address [facility] Phone Number SUNQUEST * Phosphorus, Plasma (03/08/2019 4:00 AM EST) Phosphorus, Plasma 2.7 2.5 - 4.5 mg/dL SUNQUEST 03/08/2019 4:00 AM EST 03/08/2019 4:44 AM EST us Ilan Hickey MD LAB BLOOD ORDERABL ES Final Result Performing Organization Address [facility] de Phone Number SUNQUEST * (ABNORMAL) Magnesium, Plasma (03/08/2019 4:00 AM EST) Magnesium, Plasma 1.6(L) 1.9 - 2.4 mg/dL SUNQUEST 03/08/2019 4:00 AM EST 03/08/2019 4:44 AM EST Ilan Hickey MD LAB BLOOD ORDERABL ES Final Result Performing Organization Address [facility] de Phone Number SUNQUEST * (ABNORMAL) [...] Final Result Performing Organization Address [facility] de Phone Number SUNQUEST * (ABNORMAL) [...] on absolute values, rather than percentages. Result [facility] Ilan Hickey MD LAB BLOOD ORDERABL ES Final Result Performing Organization Address [facility] Phone Number SUNQUEST * (ABNORMAL) Glucose Point of Care. (03/07/2019 8:35 PM EST) Pathologist [facility] POCT Glucose 167(H) 74 - 99 mg/dL [...] PM EST 03/07/2019 8:40 PM EST Result [facility] Ilan Hickey MD LAB BLOOD ORDERABL ES Final Result Performing Organization Address [facility] Phone Number SUNQUEST * (ABNORMAL) Glucose Point [...] PM EST 03/07/2019 3:50 PM EST Result [facility] Ilan Hickey MD LAB BLOOD ORDERABL ES Final Result Performing Organization Address [facility] de Phone Number SUNQUEST * (ABNORMAL) Glucose Point of Care. (03/07/2019 2:11 PM EST) [facility] POCT Glucose 176(H) 74 - 99 mg/dL [...] ORDERABL ES Final Result Performing Organization Address [facility] Phone Number SUNQUEST * (ABNORMAL) Glucose Point of Care. (03/07/2019 11:45 AM EST) [facility] POCT Glucose 209(H) 74 - 99 [...] Final Result Performing Organization Address [facility] de Phone Number SUNQUEST * (ABNORMAL) Glucose Point of Care. (03/07/2019 7:53 AM EST) [facility] POCT Glucose 197(H) 74 - 99 mg/dL [...] ORDERABL ES Final Result Performing Organization Address [facility]/ZIP Co de Phone Number SUNQUEST * [...] ORDERABLES Final Resul t Performing Organization Address [place]/[facility]/ZIP Co de Phone Number SUNQUEST * [...] 3:35 AM EST 03/07/2019 4:12 AM EST rAias Larson MD LAB BLOOD ORDERABLES Final Resul t Performing Organization Address [facility] de Phone Number SUNQUEST * ECG ADULT (03/07/2019) Narrative 03/07/2019 Ordered by an unspecified provider. Robinson Provider ECG ORDERABLES Final Res ult * (ABNORMAL) Glucose Point of Care. (03/06/2019 8:22 PM EST) Pathologist [facility] POCT Glucose 264(H) 74 - 99 mg/dL [...] ORDERABL ES Final Result Performing Organization Address [facility]/ZIP Co de Phone Number SUNQUEST * (ABNORMAL) Glucose Point of Care. (03/06/2019 3:44 PM EST) [facility] POCT Glucose 284(H) 74 - 99 mg/dL [...] Final Result Performing Organization Address [facility] de Phone Number SUNQUEST * Vancomycin, Peak, Plasma (03/06/2019 1:25 PM EST) [facility] Vancomycin, Peak, Plasma 23.8 20.0 - 40.0 ug/mL SUNQUEST Comment: Therapeutic Peak: ??20 to 40 ug/mL Supratherapeutic Peak: ??>40 ug/mL 03/06/2019 1:25 PM EST 03/06/2019 1:54 PM EST Arias Larson MD LAB BLOOD ORDERABLES Final Resul t Performing Organization Address City/[facility] de Phone Number SUNQUEST * (ABNORMAL) Glucose Point of Care. (03/06/2019 11:48 AM EST) [facility] POCT Glucose 305(H) 74 - 99 mg/dL [...] 8 AM EST 03/06/2019 11:50 AM EST Ilan Hickey MD LAB BLOOD ORDERABL ES Final Result Performing Organization Address [facility] de Phone Number SUNQUEST * Blood Culture (Aerobic/Anaerobet Set) (03/06/2019 10:58 AM EST) 03/06/2019 10:5 8 AM EST 03/06/2019 11:11 AM EST Narrative SUNQUEST - 05/22/2020 9:19 PM EST SQ ACC. NUMBER ?[id number] SPECIMEN DESCRIPTION: ?PERIPHERAL BLOOD LEFT ARM SPECIAL REQUESTS: ?NONE CULTURE: ? NO GROWTH DAY 5. REPORT STATUS: ? FINAL 03/12/2019 Arias Larson MD LAB MICROBIOLOGY - GENERAL ORDER [place] Final Result Performing Organization Address [facility] de Phone Number SUNQUEST * Vancomycin, Trough, Plasma (03/06/2019 10:09 AM EST) Pathologist [facility] [place] Vancomycin, Trough, Plasma 11.5 10.0 - 20.0 ug/mL SUNQUEST Comment: Therapeutic Trough: ??10 to 20 ug/mL Supratherapeutic Trough: ??>20 ug/mL 03/06/2019 10:0 9 AM EST 03/06/2019 10:40 AM EST Arias Larson MD LAB BLOOD ORDERABLES Final Resul t Performing Organization Address [facility] de Phone Number SUNQUEST * (ABNORMAL) Glucose Point of Care. (03/06/2019 8:04 AM EST) Pathologist [facility] [place] POCT Glucose 237(H) 74 - 99 mg/dL [...] Final Result Performing Organization Address [facility] de Phone Number SUNQUEST * Osmolality, Urine (03/06/2019 6:05 AM EST) Osmolality, Urine Multiple SCM orders. Tests consolidated . 300 - 900 mOsm/kg SUNQUEST 03/06/2019 6:05 AM EST 03/06/2019 6:23 AM EST us Arias Larson MD LAB URINE ORDERABLES Final Resul t Performing Organization Address [facility] Phone Number SUNQUEST * Osmolality, Urine (03/06/2019 6:05 AM EST) Osmolality, Urine 475 300 - 900 mOsm/kg SUNQUEST 03/06/2019 6:05 AM EST 03/06/2019 6:23 AM EST us Arias Larson MD LAB URINE ORDERABLES Final Resul t Performing Organization Address [facility] de Phone Number SUNQUEST * Sodium, Random, Urine (03/06/2019 6:05 AM EST) Sodium, Urine <20 mmol/L SUNQUEST 03/06/2019 6:05 AM EST 03/06/2019 6:23 AM EST us Arias Larson MD LAB URINE ORDERABLES Final Resul t Performing Organization Address City/State/[place] [facility] de Phone Number SUNQUEST * Creatinine, Random, Urine (03/06/2019 6:05 AM EST) Creatinine, Random U 56 mg/dL SUNQUEST 03/06/2019 6:05 AM EST 03/06/2019 6:23 AM EST Arias Larson MD LAB URINE ORDERABLES Final Resul t Performing Organization Address City/[facility]/[place] de Phone Number SUNQUEST * (ABNORMAL) Phosphorus, Plasma (03/06/2019 3:08 AM EST) Phosphorus, Plasma 2.4(L) 2.5 - 4.5 mg/dL SUNQUEST 03/06/2019 3:08 AM EST 03/06/2019 3:40 AM EST Arias Larson MD LAB BLOOD ORDERABLES Final Resul t Performing Organization Address City/[facility]/[place] de Phone Number SUNQUEST * (ABNORMAL) [...] Resul t Performing Organization Address [facility] de Phone Number SUNQUEST * (ABNORMAL) CBC [...] ORDERABLES Final Resul t Performing Organization Address [facility] de Phone Number SUNQUEST * Blood Culture (Aerobic/Anaerobet Set) (03/06/2019 3:08 AM EST) 03/06/2019 3:08 AM EST 03/06/2019 6:29 AM EST Narrative SUNQUEST - 05/22/2020 9:19 PM EST SQ ACC. NUMBER ?[id number] SPECIMEN DESCRIPTION: ?PERIPHERAL BLOOD SPECIAL REQUESTS: ?NONE CULTURE: ? NO GROWTH DAY 5. REPORT STATUS: ? FINAL 03/12/2019 Arias Larson MD LAB MICROBIOLOGY - GENERAL ORDER [place] Final Result Performing Organization Address [facility] Phone Number SUNQUEST * (ABNORMAL) Glucose Point of Care. (03/05/2019 8:50 PM EST) [facility] POCT Glucose 170(H) 74 - 99 [...] ORDERABL ES Final Result Performing Organization Address [facility] Phone Number SUNQUEST * (ABNORMAL) Glucose Point of Care. (03/05/2019 4:38 PM EST) [facility] POCT Glucose 314(H) 74 - 99 mg/dL [...] ORDERABL ES Final Result Performing Organization Address [facility] de Phone Number SUNQUEST * (ABNORMAL) Glucose Point of Care. (03/05/2019 2:46 PM EST) [facility] POCT Glucose 242(H) 74 - 99 mg/dL [...] Final Result Performing Organization Address [facility] de Phone Number SUNQUEST * Anaerobic Culture (03/05/2019 2:20 PM EST) 03/05/2019 2:20 PM EST 03/05/2019 4:52 PM EST Narrative SUNQUEST - 05/22/2020 9:19 PM EST SQ ACC. NUMBER ?[id number] SPECIMEN DESCRIPTION: ?ABSCESS LEFT LEG ??2 SPECIAL REQUESTS: ?NONE CULTURE: ? NO ANAEROBES ISOLATED REPORT STATUS: ? FINAL [id number] us Arias Larson MD LAB MICROBIOLOGY - GENERAL ORDER [place] Final Result Performing Organization Address [facility] de Phone Number SUNQUEST * Abscess Gram Stain (03/05/2019 2:20 PM EST) 03/05/2019 2:20 PM EST 03/05/2019 4:52 PM EST Narrative SUNQUEST - 05/22/2020 9:19 PM EST SQ ACC. NUMBER ?[id number] SPECIMEN DESCRIPTION: ?ABSCESS LEFT LEG ??2 SPECIAL REQUESTS: ?NONE GRAM STAIN ? NUMEROUS POLYMORPHONUCLEAR WHITE BLOOD CELLS ? NUMEROUS GRAM POSITIVE COCCI IN CLUSTERS REPORT STATUS: ? FINAL [id number] us Arias Larson MD LAB MICROBIOLOGY - GENERAL ORDER [place] Final Result SUNQUEST * Suceptibility Each (03/05/2019 2:20 PM EST) 03/05/2019 2:20 PM EST 03/05/2019 4:52 PM EST Narrative SUNQUEST - 05/22/2020 9:19 PM EST SQ ACC. NUMBER ?[id number] SPECIMEN DESCRIPTION: ?ABSCESS LEFT LEG ??2 SPECIAL REQUESTS: ?NONE QUANTITATION: ?HEAVY GROWTH CULTURE: ? STAPHYLOCOCCUS AUREUS , ??REFER TO ACCESSION ?NUMBER [id number] FOR SUSCEPTIBILITY ON ? STAPHYLOCOCCUS AUREUS (MRSA) ? NOTE: ??Patient needs MRSA Protocol REPORT STATUS: ? FINAL [id number] SQ ACC. NUMBER ?[id number] ORGANISM ? STAPHYLOCOCCUS AUREUS , ??REFER TO ACCESSION ?NUMBER [id number] FOR SUSCEPTIBILITY ON ? STAPHYLOCOCCUS AUREUS (MRSA) METHOD ? Billing Info: ??patient charged for serological ?identification of this isolate rAias Larson MD LAB MICROBIOLOGY - GENERAL ORDER [place] Final Result Performing Organization Address [facility] de Phone Number SUNQUEST * Anaerobic Culture (03/05/2019 2:20 PM EST) 03/05/2019 2:20 PM EST 03/05/2019 4:50 PM EST Narrative SUNQUEST - 05/22/2020 9:19 PM EST SQ ACC. NUMBER ?[id number] SPECIMEN DESCRIPTION: ?ABSCESS LEFT LEG ??1 SPECIAL REQUESTS: ?NONE CULTURE: ? NO ANAEROBES ISOLATED REPORT STATUS: ? FINAL [id number] Arias GARCIA MICROBIOLOGY - GENERAL ORDER [place] Final Result Performing Organization Address [facility] de Phone Number SUNQUEST * Abscess Gram Stain (03/05/2019 2:20 PM EST) 03/05/2019 2:20 PM EST 03/05/2019 4:50 PM EST Narrative SUNQUEST - 05/22/2020 9:19 PM EST SQ ACC. NUMBER ?[id number] SPECIMEN DESCRIPTION: ?ABSCESS LEFT LEG ??1 SPECIAL REQUESTS: ?NONE GRAM STAIN ? NUMEROUS GRAM POSITIVE COCCI IN CLUSTERS ? NUMEROUS POLYMORPHONUCLEAR WHITE BLOOD CELLS REPORT STATUS: ? FINAL [id number] us Arias Larson MD LAB MICROBIOLOGY - GENERAL ORDER [place] Final Result SUNQUEST * Suceptibility Each (03/05/2019 2:20 PM EST) 03/05/2019 2:20 PM EST 03/05/2019 4:50 PM EST Narrative SUNQUEST - 05/22/2020 9:19 PM EST SQ ACC. NUMBER ?[id number] SPECIMEN DESCRIPTION: ?ABSCESS LEFT LEG ??1 SPECIAL REQUESTS: ?NONE QUANTITATION: ?HEAVY GROWTH CULTURE: ? STAPHYLOCOCCUS AUREUS (MRSA) ? NOTE: ??Patient needs MRSA Protocol REPORT STATUS: ? FINAL [id number] SQ ACC. NUMBER ?[id number] ORGANISM ? STAPHYLOCOCCUS AUREUS (MRSA) METHOD ? Billing Info: ??patient charged for serological ?identification of this isolate SQ ACC. NUMBER ?[id number] ORGANISM ? STAPHYLOCOCCUS AUREUS (MRSA) METHOD ? [...] VANCOMYCIN ? 1 SUSCEPTIBLE SQ ACC. NUMBER ?[id number] ORGANISM ? STAPHYLOCOCCUS AUREUS (MRSA) METHOD ? [...] PM EST 03/05/2019 1:10 PM EST us Ialn Hickey MD LAB BLOOD ORDERABL ES Final Result Performing Organization Address [facility] de Phone Number SUNQUEST * (ABNORMAL) Glucose Point of Care. (03/05/2019 12:13 PM EST) Pathologist [facility] [place] POCT Glucose 260(H) 74 - 99 mg/dL [...] Final Result Performing Organization Address [facility] de Phone Number SUNQUEST * (ABNORMAL) [...] Final Result Performing Organization Address [facility] Phone Number SUNQUEST * (ABNORMAL) Glucose Point [...] ORDERABL ES Final Result Performing Organization Address [facility] Phone Number SUNQUEST * (ABNORMAL) Glucose Point of Care. (03/04/2019 4:50 PM EST) Pathologist [facility] [place] POCT Glucose 224(H) 74 - 99 mg/dL [...] Final Result Performing Organization Address [facility] Phone Number SUNQUEST * (ABNORMAL) Glucose Point [...] Final Result Performing Organization Address [facility] de Phone Number SUNQUEST * (ABNORMAL) Glucose Point of Care. (03/04/2019 8:05 AM EST) Pathologist [facility] [place] POCT Glucose 213(H) 74 - 99 mg/dL [...] Final Result Performing Organization Address [facility] de Phone Number SUNQUEST * (ABNORMAL) [...] INR 2.5 to 3.5 ?Prevention of recurrent VA ? INR 2.5 to 3.5 03/04/2019 4:17 [...] Resul t Performing Organization Address [facility] de Phone Number SUNQUEST * (ABNORMAL) [...] EST 03/04/2019 4:27 AM EST Althea Pinedo [place] LAB BLOOD ORDERABLES Final Resul t Performing Organization Address [facility] Phone Number SUNQUEST * (ABNORMAL) Glucose Point of Care. (03/03/2019 8:50 PM EST) Pathologist [facility] [place] POCT Glucose 186(H) 74 - 99 mg/dL [...] Final Result Performing Organization Address [facility] de Phone Number SUNQUEST * (ABNORMAL) [...] REQUESTING PHYSICIAN: TASHA GARCIA REASON FOR EXAMINATION/PROCEDURE: *Crescencio;Jose,;Tasha;S;;([id number]) EXAMINATION / PROCEDURE: ARTERIAL LOWER EXT SEG [...] REQUESTING PHYSICIAN: TASHA GARCIA REASON FOR EXAMINATION/PROCEDURE: *Crescencio;Jose,;Tasha;S;;([id number]) EXAMINATION / PROCEDURE: ARTERIAL LOWER EXT SEG [...] 05/22/2020 9:19 PM EST SQ ACC. NUMBER ?[id number] SPECIMEN DESCRIPTION: ?BLOOD LEFT ARM SPECIAL REQUESTS: [...] Read Back completed REPORT STATUS: ? FINAL [id number] us Althea TREVIÑO LAB MICROBIOLOGY - GENERAL ORDER [place] Final Result SUNQUEST * Suceptibility Each (03/03/2019 9:15 AM EST) 03/03/2019 9:15 AM EST 03/03/2019 9:43 AM EST Narrative SUNQUEST - 05/22/2020 9:19 PM EST SQ ACC. NUMBER ?[id number] SPECIMEN DESCRIPTION: ?BLOOD LEFT ARM SPECIAL REQUESTS: [...] DAY 11 HOURS REPORT STATUS: ? FINAL [id number] SQ ACC. NUMBER ?[id number] ORGANISM ? STAPHYLOCOCCUS AUREUS (MRSA) METHOD ? MIKE (mcg/mL) DAPTOMYCIN ? <=1 SUSCEPTIBLE OXACILLIN ?>2 RESISTANT VANCOMYCIN ? 1 SUSCEPTIBLE SQ ACC. NUMBER ?[id number] ORGANISM ? STAPHYLOCOCCUS AUREUS (MRSA) METHOD ? Billing Info: ??patient charged for serological ?identification of this isolate us Althea TREVIÑO LAB MICROBIOLOGY - GENERAL ORDER [place] Final Result Performing Organization Address [facility] de Phone Number SUNQUEST * (ABNORMAL) Glucose Point of Care. (03/03/2019 7:46 AM EST) [facility] POCT Glucose 323(H) 74 - 99 mg/dL [...] Final Result Performing Organization Address [facility] de Phone Number SUNQUEST * (ABNORMAL) Phosphorus, Plasma (03/03/2019 4:19 AM EST) Phosphorus, Plasma 2.3(L) 2.5 - 4.5 mg/dL SUNQUEST 03/03/2019 4:19 AM EST 03/03/2019 4:39 AM EST Historical Provider MD LAB BLOOD ORDERABLES Laurie l Result Performing Organization Address [facility] de Phone Number SUNQUEST * Magnesium, Plasma (03/03/2019 4:19 AM EST) Magnesium, Plasma 1.9 1.9 - 2.4 mg/dL SUNQUEST 03/03/2019 4:19 AM EST 03/03/2019 4:39 AM EST us Historical Provider MD LAB BLOOD ORDERABLES Laurie l Result Performing Organization Address [facility] de Phone Number SUNQUEST * (ABNORMAL) [...] l Result Performing Organization Address [facility] de Phone Number SUNQUEST * (ABNORMAL) [...] ORDERABLES Laurie l Result Performing Organization Address City/[facility] de Phone Number SUNQUEST * (ABNORMAL) [...] l Result Performing Organization Address [facility] de Phone Number SUNQUEST * Osmolality, Plasma (03/03/2019 4:19 AM EST) Osmolality, Serum 287 275 - 295 mOsm/kg SUNQUEST 03/03/2019 4:19 AM EST 03/03/2019 4:54 AM EST Althea TREVIÑO LAB BLOOD ORDERABLES Final Resul t Performing Organization Address [facility] de Phone Number SUNQUEST * (ABNORMAL) [...] ORDERABL ES Final Result Performing Organization Address [facility] de Phone Number SUNQUEST * (ABNORMAL) [...] ORDERABL ES Final Result Performing Organization Address [facility] Phone Number SUNQUEST * (ABNORMAL) Glucose Point of Care. (03/02/2019 4:58 PM EST) Pathologist [facility] [place] POCT Glucose 340(H) 74 - 99 mg/dL [...] ORDERABL ES Final Result Performing Organization Address [facility] de Phone Number SUNQUEST * Sodium, Random, Urine (03/02/2019 4:39 PM EST) Pathologist [facility] [place] Sodium, Urine <20 mmol/L SUNQUEST 03/02/2019 4:39 [...] on Feb ??2018 ??5: 48P Transcribed by: [facility] on Feb ??5 2019 ??5:48P Dictated by: [...] M.D. on Feb ??2018 ??4:02P Transcribed by: [facility] on Feb ??2018 ??4:02P Dictated by: CAMILLE [...] REQUESTING PHYSICIAN: MIGUELITO AVITIA REASON FOR EXAMINATION/PROCEDURE: Sadi,;Miguelito;Baljeet;;([id number]) EXAMINATION / PROCEDURE: VENOUS DUPLEX LOWER EXTREMITY [...] REQUESTING PHYSICIAN: MIGUELITO AVITIA REASON FOR EXAMINATION/PROCEDURE: Sadi,;Miguelito;Baljeet;;([id number]) EXAMINATION / PROCEDURE: VENOUS DUPLEX LOWER EXTREMITY [...] <6.0% Children and Adolescents <7.5% . Source: ??[employer]. Standards of medical care in diabetes, 2017. Diabetes Care.2017:40 (suppl 1):S1-S135. . HbA1c assay performed by an ion-exchange chromatography method that is certified traceable to the DCCT. 03/02/2019 10:3 5 AM EST 03/02/2019 11:00 AM EST Harlan Lamb MD LAB BLOOD ORDERABLES Final Result Performing Organization Address [facility] de Phone Number SUNQUEST * Phosphorus, Plasma (03/02/2019 10:35 AM EST) Phosphorus, Plasma 3.3 2.5 - 4.5 mg/dL SUNQUEST 03/02/2019 10:3 5 AM EST 03/02/2019 10:54 AM EST Harlan Lamb MD LAB BLOOD ORDERABLES Final Result Performing Organization Address [facility] de Phone Number SUNQUEST * Magnesium, Plasma (03/02/2019 10:35 AM EST) Magnesium, Plasma 1.9 1.9 - 2.4 mg/dL SUNQUEST 03/02/2019 10:3 5 AM EST 03/02/2019 10:54 AM EST Harlan Lamb MD LAB BLOOD ORDERABLES Final Result Performing Organization Address [facility] de Phone Number SUNQUEST * (ABNORMAL) [...] LAB BLOOD ORDERABLES Final Result SUNQUEST * [place] Hepatitis C Antibody (03/02/2019 10:35 AM EST) [place] Hepatitis C Ab NEGATIVE Reference Range: Negative [...] WBC Differential (03/02/2019 10:34 AM EST) Pathologist [facility] [place] Differential Type MANUAL SUNQUEST Blasts % 0 [...] Final Result Performing Organization Address [facility] de Phone Number SUNQUEST * Lactate, venous (03/02/2019 10:34 AM EST) Lactate, Venous 2.1 0.5 - 2.2 mmol/L SUNQUEST 03/02/2019 10:3 4 AM EST 03/02/2019 10:40 AM EST Harlan Lamb MD LAB BLOOD ORDERABLES Final Result Performing Organization Address [facility] de Phone Number SUNQUEST * (ABNORMAL) [...] ORDERABL ES Final Result Performing Organization Address City/[facility] de Phone Number SUNQUEST documented in this encounter Visit Diagnoses Diagnosis Sepsis due to methicillin resistant Staphylococcus aureus (CMS/HCC) documented in this encounter
--- OUTSIDE RECORDS SUMMARY | 2024-02-24 15:36 | XMS_ITS ---
Author Organization [facility] Address [address] [place] [address] Care Team Providers Care Putaway Driver Name Role Phone Pcp, No Primary Care Provider UnavailCeci Mclean LPN Unavailable Unavailable Transitional Care Management Status:Identified (Enrolling) Start date:02/07/2024 Enrollment reason:Identified using hospital discharge data Overview This episode type is for outpatient care managers enrolling patients in the [facility] Transitional Care Management program. Case Team Name Relationship Phone Ceci Greene LPN TCM Nurse(Responsible Staff) Continued Care and Services Coordination
--- OUTSIDE RECORDS SUMMARY | 2024-02-24 15:36 | XMS_ITS ---
Author Organization [facility] Address [address] [place] [address] Care Team Providers Care Balloon Dipper Name Role Phone Pcp, No Primary Care Provider Ceci Pereira LPN Unavailable Unavailable Transitional Care Management Status:Closed (Closed) Start date:02/16/2023 Enrollment date:02/16/2023 Enrollment reason:Identified using hospital discharge data End date:03/18/2023 Close reason:Patient graduated Overview This episode type is for outpatient care managers enrolling patients in the CMS Transitional Care Management program. Continued Care and Services Coordination
--- OUTSIDE RECORDS SUMMARY | 2024-02-24 15:36 | XMS_ITS | Encounter Summary ---
Author Organization [facility] Address [address] [place] [address] Care Team Providers Care Extern Name Role Phone Unavailable Primary Care Provider Unavailabl e Encounter Details Date Type Department Care Team (Late Contact Info) Description 02/07/2016 [facility] Vitals Encounter [facility] OUTPATIENT CONVERSIONS [address] [place] [address] ProviderRobinson MD [address] [place] [id number] Social History Tobacco Use Types Packs/Day [...] Description 03/07/2024 1:40 PM EST Office Visit [facility] [place] [address] [facility], [address] [place] [id number] Naeem Blunt MD [address] [place] [id number] documented as of this encounter Visit Diagnoses Not on filedocumented in this encounter
[2024-02-24] MEDS: humaLOG 100 UNITS/ML 10ML VIAL (SSI) SUBCUT ×2 (15:53→21:51)
[2024-02-24 15:59] LABS: POC Glucose,Bedside 265 (70-110)
[2024-02-24 21:48] LABS: POC Glucose,Bedside 153 (70-110)
[2024-02-24] MEDS: HYDRALAZINE HCL 25MG TABLET 25 MG PO (21:49)
[2024-02-24] MEDS: INSULIN GLARGINE 100 UNITS/ML 3ML FLEXPEN 10 UNIT SUBCUT (21:54)
[2024-02-24] MEDS: ATORVASTATIN 40MG TABLET 80 MG PO (22:00)
[2024-02-25] VITALS (9 sets, daily range): BP systolic 107–137; BP diastolic 65–82; PULSE 60–80; RESP 12–18; TEMP 36.6–36.7; O2SAT 98–100; BMI 25.9
--- NOTE | 2024-02-25 06:15 | CA_ITS ---
APPROVED REPORT EXAM: Comprehensive 2D, Doppler, and color-flow Echocardiogram Building Certifier: Shirley Hogan, RCS, RVS Ht: 6 ft 0 in Wt: 189lbs BSA: 2.08 BP: 118/67 mmHg Indications: NSTEMI, CAD, Ischemic CM last echo03/2023=30%EF, COPD, DM 2D Dimensions IVSd 1.14 cm LVEF (Visual) 20.60 % PWd 1.09 cm LA Volume 114.30 mL LVDd 6.93 cm LA Volume Index 54.908298 mL/m2 (M/F) 16-34 LVDs 6.26 cm Left Atrium 4.42 cm M-Mode Dimensions RVDd 2.90 cm (0.9-2.6) LA Diam 4.69 cm (1.9-4.0) LVDd 6.56 cm (3.5-5.7) LVDs 5.80 cm (3.5-5.7) IVSd 1.15 cm (0.6-1.1) PWd 1.15 cm (0.6-1.1) EF (Teich) 16.90% EPSs 1.83 cm FS 7.80% EDV (Teich) 200.50 mL TAPSE 1.41 (<1.7) ESV (Teich) 166.60 mL LV Diastology E Decel Time 137 (160-240 msec) E/A Ratio 2.32 MED A' 2.80 cm/s LAT A' 3.70 cm/s Aortic Valve MATEO Index 0.53 cm2/m2 AoV Peak Yinka. 204.0 (50-130 cm/s) AI PHT 422.00 ms AO Peak GR. 16.60 mmHg AO Mean GR. 8.60 (<5 mmHg) AO VTI 34.8 (18-25 cm) MATEO (VTI) 1.13 (2.5-4.5 cm2) Mitral Valve MV A Velocity 49.0 (40-130 cm/s) E/A Ratio 2.32 Pulmonary Valve PV Peak Velocity 62.0 (50-150 cm/s) AZ End VMAX 162.0 cm/s Tricuspid Valve TR P. Velocity 260.00 cm/s RAP Estimate 10.00 mmHg RVSP 37.10 mmHg Left Ventricle Left ventricle is severely dilated. Left ventricular systolic function is severely decreased. There is increased LV wall thickness. There is severe global hypokinesis present. The inferior LV wall is nearly akinetic. Grade 3 diastolic dysfunction is present. LVEF is 20%. Right Ventricle Right ventricle is severely dilated. Right ventricle is moderately hypokinetic. Atria Left atrium is severely dilated. Right atrium is severely dilated. There is no Doppler evidence of interatrial shunt. Aortic Valve The aortic valve is moderately thickened. The AV is likely bicuspid (anatomic vs. functional) with fusion of the right and the non-coronary cusps. Moderate aortic stenosis. MATEO by 2D planimetry and continuity equation is 1.2 cm2. Peak velocity 2.1 m/s. Mean AV gradient 10 mmHg. Max AV gradient 21 mmHg. The gradients are likely underestimated due to severely reduced LV systolic function. Moderate aortic regurgitation. Mitral Valve The mitral valve is normal in structure. No evidence of mitral valve stenosis. Moderate mitral regurgitation. Tricuspid Valve Tricuspid valve is grossly normal in structure and function. Moderate to severe tricuspid regurgitation. RVSP is 30-35 mmHg. Pulmonic Valve The pulmonary valve is normal in structure. Mild pulmonic regurgitation. Great Vessels The aortic root is normal in size. The ascending aorta is borderline dilated, measuring 3.7 cm in diameter. IVC is normal in size, but collapses < 50% with respirophasic variation. RA pressure is estimated at 8 mmHg. Pericardium There is no pericardial effusion. Other Information Study Quality: Fair Conclusion Severely dilated LV with severely reduced LV systolic function (LVEF 20%). Grade 3 diastolic dysfunction. The inferior LV wall is nearly akinetic. Severely dilated RV with moderate reduction in RV systolic function. Biatrial dilation. Moderately thickened AV leaflets. AV likely bicuspid (anatomic vs. functional) with fusion of the right and the non-coronary cusps. Moderate (MATEO by 2D planimetry and continuity equation is 1.2 cm2. Peak velocity 2.1 m/s. Mean AV gradient 10 mmHg. Max AV gradient 21 mmHg. The gradients are likely underestimated due to severely reduced LV systolic function). Moderate AI. Moderate MR. Moderate to severe TR. RVSP is 30-35 mmHg. The ascending aorta is borderline dilated, measuring 3.7 cm in diameter. Compared to prior TTEs from 04/06/2023 and 04/12/2023, the LV systolic/diastolic functions and valvulopathies are overall worse. Electronically signed by : Yazmin Palm MD 02/25/2024 14:46:42
[2024-02-25] MEDS: humaLOG 100 UNITS/ML 10ML VIAL (SSI) SUBCUT ×3 (06:22→21:17)
[2024-02-25 06:25] LABS: POC Glucose,Bedside 162 (70-110)
[2024-02-25 06:26] LABS: Basophils % 0.5 % (0.1-2.0); Eosinophils # 0.1 K/mm3 (0.0-0.4); Eosinophils % 1.8 % (0.1-12.0); Hematocrit 33.4 % (42.0-52.0); Hemoglobin 10.7 g/dL (14.1-18.0); Lymphocytes # 0.7 K/mm3 (0.7-4.5); Lymphocytes % 18.6 % (10-50); Mean Corpuscular HGB Conc 32.1 g/dL (31.8-35.4); Mean Corpuscular Hemoglobin 27.3 pg (27.0-31.2); Mean Corpuscular Volume 84.9 fl (80-94); Mean Platelet Volume 9.6 fl (7.4-10.4); Monocytes # 0.3 K/mm3 (0.1-1.0); Monocytes % 8.1 % (1.7-9.3); Neutrophils # 2.6 K/mm3 (1.8-7.8); Neutrophils % 71.1 % (37.0-80.0); Platelet Count 158 K/mm3 (142-424); Red Blood Count 3.93 M/mm3 (4.60-6.20); Red Cell Distribution Width 18.8 % (11.5-17.5); White Blood Count 3.6 K/mm3 (4.8-10.8)
[2024-02-25 06:38] LABS: Alanine Aminotransferase 16 U/L (12-78); Albumin Level 2.9 g/dl (3.5-5.0); Albumin/Globulin Ratio 1.2 (1.1-1.8); Alkaline Phosphatase 217 U/L (38-126); Aspartate Amino Transferase 33 U/L (17-59); Blood Urea Nitrogen 59 mg/dl (9-20); Calcium 7.9 mg/dl (8.4-10.2); Carbon Dioxide 24 mmol/L (22.0-30.0); Chloride 105 mmol/L (98-107); Creatinine Clearance Estimated 30 mL/min (50-200); Estimated Glomerular Filt Rate 19 ml/min (>60); GFR (African American) 23 ML/MIN (>60); Globulin 2.5 g/dL (1.3-3.2); Glucose 145 mg/dl (74-100); Potassium 4.5 mmoL/L (3.5-5.1); Total Protein,Serum 5.4 g/dl (6.3-8.2)
[2024-02-25 06:40] LABS: Anion Gap 10.5 mEq/L (5-15); Sodium 135 mmol/L (136-145)
--- NOTE | 2024-02-25 07:34 | PC.NURSE ---
02/25/24 0700 Pt. Alert and orientated x 4. denies chest pains. Pt. on 3 liters NC oxygen, baseline at home is 2 liters. Pt c/o SOB at times. Pt. diabetic blood sugars stable overnight. Vital signs stable. Pt. personal items and call reyes in reach.
[2024-02-25] MEDS: HYDRALAZINE HCL 25MG TABLET 25 MG PO ×2 (08:14→12:06)
[2024-02-25] MEDS: CLOPIDOGREL 75MG TAB 75 MG PO (08:14)
[2024-02-25] MEDS: METOPROLOL SUCCINATE XL 50MG TABLET 50 MG PO (08:14)
[2024-02-25] MEDS: ASPIRIN EC 81MG TABLET 81 MG PO (08:14)
[2024-02-25] MEDS: ISOSORBIDE DINITRATE 10 MG TABLET PO ×2 (08:14→12:06)
[2024-02-25 09:09] LABS: NT Pro Brain Natriuretic Pep. 39400 pg/mL (0-125)
[2024-02-25 10:24] LABS: POC Glucose,Bedside 164 (70-110)
--- NOTE | 2024-02-25 12:17 | HMH.OTEV ---
OT Inpatient Evaluation Rehab OT IP Evaluation Start: 02/25/24 09:01 Freq: ONCE Status: Active Protocol: Document 02/25/24 12:11 GARRETT (Rec: 02/25/24 12:17 GARRETT [id number]) Rehab OT IP Assessment Subjective History Buzz Hurley is a 58-year-old male past medical history significant for HFrEF, ischemic cardiomyopathy, CAD status post stenting, CKD stage III type 2 diabetes poorly controlled, COPD on 2 L nasal cannula at baseline, HTN, PAD who presents emergency room at [facility] with complaints of worsening shortness of breath. Patient was seen at about a week ago for the same symptoms. Then went to [facility] last night and was discharged home. Reports that shortness of breath acutely worsened this afternoon around 2:00 PM. Denies any chest pain associated with this. No diaphoresis or nausea. Reports compliance with his diet, fluid restriction, diuretics. Denies any swelling in his lower extremities or his abdomen. Unable to quantify whether he has gained any weight. Patient is little bit of a poor historian. Patient was admitted for basically the same symptoms to this hospital back in March. Has a LifeVest but does not wear it, reports it is at home. Patient had an LHC done back in March, received 3 stents to the LAD, is supposed to been on DAPT. Patient is unable to tell me whether he has been taking these. Echo at that time showed an EF of 30%. Does not see a nuclear plant operator. Has been referred multiple times but has been unable to make the appointment. Does not appear that he has seen cardiology since March earlier this year. Denies any fever, cough , chest pain, abdominal pain. No focal neurodeficits noted. Denies tobacco use, alcohol use, illicit drug use. Lab work from [facility] showed an elevated potassium of 6, elevated creatinine at 3 .2, baseline appears to be around 2.4. BNP elevated at 4800. Chest x-ray showed pulmonary edema. He was given 40 of Lasix, 5 units of insulin IV and transferred here. He is admitted to the hospitalist service for an acute exacerbation of CHF. Patient lives in 1 story apt alone. Independent with ADLs. Uses a w/c within home and RW outside of home. According to patient, local restorationism provides food to him. Poor historian during initial evaluation. Subjective I can try to get up. Instructed Patient on proper hand and foot placement to complete bed mobility, sit-> stand transfers and pivot transfers with usage of RW. Patient required Mod A for all tasks. Educated Patient re: needing placement in order to improve overall generalized strength and fx'l mobility prior to returning home. Patient denied and requested to return back home. Objective Patient Orientation Person,Age Right Upper Extremity Gross ROM WFL Left Upper Extremity Gross ROM WFL Bed Mobility bed mobility - supine/sit Assist Level Moderate x 1 (50% assist) Transfer Training Sit/Stand Transfer Assist Level Moderate x 1 (50% assist) Rehab OT IP prob,goals,plan Problems Date of Evaluation: 02/25/24 OT IP Problems Bed Mobility,Transfers,Balance ,Self care Rehab Potential Rehab Potential Good Equipment Needs Assistive Devices Rolling / Wheeled Walker Plan OT intervention Plan Bed Mobility,Transfers,Balance ,Self care,Safety,Therapeutic Exercise OT Plan Frequency Daily Duration LOS Discharge Goals Bed Mobility Ability Assistance x1 Sit to Stand Chair Transfer Ability Minimal x 2 (25% assist) Chair Transfer Ability Minimal x 2 (25% assist) Chair Transfer Technique Sit to/from Ambulatory Discharge Plan OT Discharge Plan Educated Patient re: needing placement in order to improve overall generalized strength and fx'l mobility prior to returning home. Patient denied and requested to return back home. Patient will continue to be seen by OT IP services while here at [facility] til medically stable conditions. Eval Complexity Eval Charge Codes 25151 - Low Complexity PHYSICIAN CERTIFICATION: I certify the specified therapy services for Buzz Hurley JR are required, authorized, and reviewed every 30 days.
--- NOTE | 2024-02-25 14:24 | PC.NURSE ---
Pt. is aox 4, on 2-3 L NC, up with assistance times one, fsbg achs, 1,500 fluid restriction, dressing to right lower ext c/d/i, pt and ot following, bed alarm active.
[2024-02-25 16:17] LABS: POC Glucose,Bedside 145 (70-110)
[2024-02-25] MEDS: FLUTICASONE/SALMETEROL 250/50MCG DISKUS 1 PUFF IH (18:19)
[2024-02-25] MEDS: IPRATROPIUM/ALBUTEROL 3 ML NEB IH (19:37)
[2024-02-25] MEDS: HYDRALAZINE HCL 25MG TABLET 50 MG PO (20:45)
[2024-02-25] MEDS: ATORVASTATIN 40MG TABLET 80 MG PO (20:46)
[2024-02-25] MEDS: ISOSORBIDE DINITRATE 10 MG TABLET 20 MG PO (20:46)
[2024-02-25] MEDS: INSULIN GLARGINE 100 UNITS/ML 3ML FLEXPEN 10 UNIT SUBCUT (21:08)
[2024-02-25 21:27] LABS: POC Glucose,Bedside 219 (70-110)
[2024-02-26] VITALS (7 sets, daily range): BP systolic 133–149; BP diastolic 74–91; PULSE 71–80; RESP 17–20; TEMP 36.5–36.8; O2SAT 99–100; BMI 25.9
--- NOTE | 2024-02-26 02:59 | P.PN_ITS ---
Subjective *Date: 02/25/24 *Time: 08:00 Interval history: Patient states he is little bit better today, breathing has improved. Exam Data for Last 24 hours Vital signs and Labs for Last 24 Hours: Temp Pulse Resp BP Pulse Ox O2 Del Method O2 Flow Rate 98.2 F 71 18 133/81 100 Nasal Cannula 2 02/26/24 00:00 02/26/24 00:00 02/26/24 00:00 02/26/24 00:00 02/26/24 00:00 02/26/24 01:00 02/26/24 01:00 Laboratory Results - last 24 hr 02/25/24 05:42: WBC 3.6 L D, RBC 3.93 L, Hgb 10.7 L, Hct 33.4 L, MCV 84.9, MCH 27.3, MCHC 32.1, RDW 18.8 H, Plt Count 158, MPV 9.6, Neut % (Auto) 71.1, Lymph % (Auto) 18.6, [place] % (Auto) 8.1, Eos % (Auto) 1.8, Baso % (Auto) 0.5, Neut # (Auto) 2.6, Lymph # (Auto) 0.7, [place] # (Auto) 0.3, Eos # (Auto) 0.1, Baso # (Auto) 0.0, Sodium 135 L, Potassium 4.5, Chloride 105, Carbon Dioxide 24, Anion Gap 10.5, BUN 59 H, Creatinine 3.40 H, Estimated Creat Clear 30, Estimated GFR 19 L*, Est GFR ( Amer) 23 L, Glucose 145 H, Calcium 7.9 L, Magnesium 2.0, Total Bilirubin 1.0, AST 33, ALT 16 D, Alkaline Phosphatase 217 H, Total Protein 5.4 L, Albumin 2.9 L D, Globulin 2.5, Albumin/Globulin Ratio 1.2 02/25/24 05:43: NT-Pro-B Natriuret Pep 21323 H 02/25/24 06:15: POC Glucose 162 H 02/25/24 10:17: POC Glucose 164 H 02/25/24 16:10: POC Glucose 145 H 02/25/24 20:45: POC Glucose 219 H I & O for Last 24 hours: Intake & Output 02/23/24 02/24/24 02/25/2424 23:59 23:59 23:59 23:59 Intake Total 240 / 240 930 / 930 930 / 930 240 / 240 Output Total 175 / 175 900 / 900 575 / 575 100 / 100 Balance 65 / 65 355 / 355 140 / 140 Weight 85.729 kg 84.867 kg 86.818 kg Constitutional Constitutional: no acute distress *Routine HEENT Exam Head: Present normocephalic Eye: Present EOMI and PERRL ENT: Present mucous membranes moist *Routine Neck Exam Neck: Present supple; Absent lymphadenopathy *Routine Respiratory Exam Respiratory: Present CTA bilaterally *Routine Cardiovascular Exam Cardiovascular: Present RRR *Routine Abdominal Exam Abdominal: Present soft and normoactive bowel sounds; Absent tenderness *Routine Extremities Exam Extremities: Absent cyanosis, clubbing or edema Comments: Right lower extremity pitting edema resolved. Chronic venous stasis changes Left AKA. *Routine Skin Exam Skin: Present warm; Absent rash *Routine Neurological Exam Neurological: Present alert and oriented X3 Assessment and Plan *Assessment and plan (1) HFrEF (heart failure with reduced ejection fraction): Status: Acute Category: Medical Code(s): I50.20 - Unspecified systolic (congestive) heart failure (2) Ischemic cardiomyopathy: Status: Acute Category: Medical Code(s): I25.5 - Ischemic cardiomyopathy (3) Peripheral arterial disease: Status: Acute Category: Medical Code(s): I73.9 - Peripheral vascular disease, unspecified (4) Hyperlipidemia: Status: Acute Qualifiers: Hyperlipidemia type: mixed hyperlipidemia Qualified Code(s): E78.2 - Mixed hyperlipidemia Category: Medical Code(s): E78.5 - Hyperlipidemia, unspecified (5) Diabetes mellitus: Status: Acute Qualifiers: Diabetes mellitus type: type 2 Diabetes mellitus shelter insulin use: with exterminator helper use Diabetes mellitus complication status: without complication Qualified Code(s): E11.9 - Type 2 diabetes mellitus without complications; Z79.4 - halfway (current) use of insulin Category: Medical Code(s): E11.9 - Type 2 diabetes mellitus without complications (6) COPD (chronic obstructive pulmonary disease): Status: Acute Qualifiers: COPD type: chronic bronchitis Chronic bronchitis type: unspecified Qualified Code(s): J42 - Unspecified chronic bronchitis Category: Medical Code(s): J44.9 - Chronic obstructive pulmonary disease, unspecified (7) Hypertension: Status: Acute Qualifiers: Hypertension type: primary hypertension Qualified Code(s): I10 - Essential (primary) hypertension Category: Medical Code(s): I10 - Essential (primary) hypertension (8) Non-STEMI (non-ST elevated myocardial infarction): Status: Acute Category: Medical Code(s): I21.4 - Non-ST elevation (NSTEMI) myocardial infarction Plan Assessment: This is a 58-year-old male being admitted for acute on chronic CHF exacerbation. On my exam, patient is sitting up in bed in no acute distress. On his baseline 2 L nasal cannula. No complaints at this time. Plan: Admit to inpatient-[facility] #Acute on chronic hypoxic respiratory failure HFrEF exacerbation NSTEMI type II CKD stage IV ? History of CAD status post 3 stents in March. ? Troponins plateaued around 0.26, down to 0.17 today. Repeat EKG today showed T wave inversions and inferior leads. No chest pain, shortness of breath. ? Discussed with Dr. Mcfadden, at this time this likely represents type II NSTEMI in the setting of HFrEF exacerbation. ? Patient's volume status has improved today, patient also feels little better. ? Creatinine bumped from 3.0-3.4 today, Lasix held. Plan to start Bumex 2 mg tomorrow after discussing with cardiology. - ECHO shows LVEF 20% with similar inferior akinesis as March this year, had been LVEF 30% earlier this. Patient does not want LifeVest at this time after extensively discussing risks and benefits. -Continue aspirin, Plavix 75 mg. ? Given patient's advanced CKD stage IV, unable to start NARESH/ARB/ARNI, MRA, or SGLT2i. - Uptitrated hydralazine to 50 mg 3 times daily, Isordil to 20 mg 3 times daily after speaking to cardiology. ? Wean O2 as tolerated, baseline 2 L. ? Anticipate discharge in the morning pending improvement in renal function. #Physical deconditioning ? OT evaluated patient, recommended SNF. However, patient declines at this time. Plan to set up home health on discharge. Type 2 diabetes Diabetic neuropathy -Hemoglobin A1c 7.8 -Continue Lantus at 13 units nightly -SSI for additional glycemic control COPD -Not in acute exacerbation, on baseline oxygen requirements -Babs as needed -Continue Dulera -Maintain SpO2 greater than 90% HTN HLD -Continue statin, beta-stacy, hydralazine DVT prophylaxis: Heparin CODE STATUS: Full code Surrogate decision maker: Saurabh [phone]
--- NOTE | 2024-02-26 03:05 | EXP.DC.SUM ---
General Admission date:: 02/23/24 HPI HPI HPI: Buzz Hurley is a 58-year-old male past medical history significant for HFrEF, ischemic cardiomyopathy, CAD status post stenting, CKD stage III type 2 diabetes poorly controlled, COPD on 2 L nasal cannula at baseline, HTN, PAD who presents emergency room at [facility] with complaints of worsening shortness of breath. Patient was seen at about a week ago for the same symptoms. Then went to [facility] last night and was discharged home. Reports that shortness of breath acutely worsened this afternoon around 2:00 PM. Denies any chest pain associated with this. No diaphoresis or nausea. Reports compliance with his diet, fluid restriction, diuretics. Denies any swelling in his lower extremities or his abdomen. Unable to quantify whether he has gained any weight. Patient is little bit of a poor historian. Patient was admitted for basically the same symptoms to this hospital back in March. Has a LifeVest but does not wear it, reports it is at home. Patient had an LHC done back in March, received 3 stents to the LAD, is supposed to been on DAPT. Patient is unable to tell me whether he has been taking these. Echo at that time showed an EF of 30%. 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 Has been referred multiple times but has been unable to make the appointment. Does not appear that he has seen cardiology since March earlier this year. Denies any fever, cough, chest pain, abdominal pain. No focal neurodeficits noted. Denies tobacco use, alcohol use, illicit drug use. Lab work from [facility] showed an elevated potassium of 6, elevated creatinine at 3.2, baseline appears to be around 2.4. BNP elevated at 4800. Chest x-ray showed pulmonary edema. He was given 40 of Lasix, 5 units of insulin IV and transferred here. He is admitted to the hospitalist service for an acute exacerbation of CHF. Exam Data for Last 24 hours Vital signs and Labs for Last 24 Hours: Temp Pulse Resp BP Pulse Ox O2 Del Method O2 Flow Rate 98.2 F 71 18 133/81 100 Nasal Cannula 2 02/26/24 00:00 02/26/24 00:00 02/26/24 00:00 02/26/24 00:00 02/26/24 00:00 02/26/24 01:00 02/26/24 01:00 Laboratory Results - last 24 hr 02/25/24 05:42: WBC 3.6 L D, RBC 3.93 L, Hgb 10.7 L, Hct 33.4 L, MCV 84.9, MCH 27.3, MCHC 32.1, RDW 18.8 H, Plt Count 158, MPV 9.6, Neut % (Auto) 71.1, Lymph % (Auto) 18.6, [place] % (Auto) 8.1, Eos % (Auto) 1.8, Baso % (Auto) 0.5, Neut # (Auto) 2.6, Lymph # (Auto) 0.7, [place] # (Auto) 0.3, Eos # (Auto) 0.1, Baso # (Auto) 0.0, Sodium 135 L, Potassium 4.5, Chloride 105, Carbon Dioxide 24, Anion Gap 10.5, BUN 59 H, Creatinine 3.40 H, Estimated Creat Clear 30, Estimated GFR 19 L*, Est GFR ( Amer) 23 L, Glucose 145 H, Calcium 7.9 L, Magnesium 2.0, Total Bilirubin 1.0, AST 33, ALT 16 D, Alkaline Phosphatase 217 H, Total Protein 5.4 L, Albumin 2.9 L D, Globulin 2.5, Albumin/Globulin Ratio 1.2 02/25/24 05:43: NT-Pro-B Natriuret Pep 40594 H 02/25/24 06:15: POC Glucose 162 H 02/25/24 10:17: POC Glucose 164 H 02/25/24 16:10: POC Glucose 145 H 02/25/24 20:45: POC Glucose 219 H I & O for Last 24 hours: Intake & Output 02/23/24 02/24/24 02/25/24 02/26/24 23:59 23:59 23:59 23:59 Intake Total 240 / 240 930 / 930 930 / 930 240 / 240 Output Total 175 / 175 900 / 900 575 / 575 100 / 100 Balance 65 / 65 355 / 355 140 / 140 Weight 85.729 kg 84.867 kg 86.818 kg Results Data Completed and Pending Labs on day of discharge: Labs from last 24 hours 02/25/24 02/25/24 02/25/24 20:45 16:10 10:17 WBC RBC Hgb Hct MCV MCH MCHC RDW Plt Count MPV Neut % (Auto) Lymph % (Auto) [place] % (Auto) Eos % (Auto) Baso % (Auto) Neut # (Auto) Lymph # (Auto) [place] # (Auto) Eos # (Auto) Baso # (Auto) Sodium Potassium Chloride Carbon Dioxide Anion Gap BUN Creatinine Estimated Creat Clear Estimated GFR Est GFR ( Amer) Glucose POC Glucose 219 H 145 H 164 H Calcium Magnesium Total Bilirubin AST ALT Alkaline Phosphatase NT-Pro-B Natriuret Pep Total Protein Albumin Globulin Albumin/Globulin Ratio 02/25/24 02/25/24 02/25/24 06:15 05:43 05:42 WBC 3.6 L D RBC 3.93 L Hgb 10.7 L Hct 33.4 L MCV 84.9 MCH 27.3 MCHC 32.1 RDW 18.8 H Plt Count 158 MPV 9.6 Neut % (Auto) 71.1 Lymph % (Auto) 18.6 [place] % (Auto) 8.1 Eos % (Auto) 1.8 Baso % (Auto) 0.5 Neut # (Auto) 2.6 Lymph # (Auto) 0.7 [place] # (Auto) 0.3 Eos # (Auto) 0.1 Baso # (Auto) 0.0 Sodium 135 L Potassium 4.5 Chloride 105 Carbon Dioxide 24 Anion Gap 10.5 BUN 59 H Creatinine 3.40 H Estimated Creat Clear 30 Estimated GFR 19 L* Est GFR ( Amer) 23 L Glucose 145 H POC Glucose 162 H Calcium 7.9 L Magnesium 2.0 Total Bilirubin 1.0 AST 33 ALT 16 D Alkaline Phosphatase 217 H NT-Pro-B Natriuret Pep 05129 H Total Protein 5.4 L Albumin 2.9 L D Globulin 2.5 Albumin/Globulin Ratio 1.2 DS: Diagnosis Discharge Diagnosis (1) HFrEF (heart failure with reduced ejection fraction): Status: Acute Code(s): I50.20 - Unspecified systolic (congestive) heart failure (2) Ischemic cardiomyopathy: Status: Acute Code(s): I25.5 - Ischemic cardiomyopathy (3) Peripheral arterial disease: Status: Acute Code(s): I73.9 - Peripheral vascular disease, unspecified (4) Hyperlipidemia: Status: Acute Code(s): E78.5 - Hyperlipidemia, unspecified Qualifiers: Hyperlipidemia type: mixed hyperlipidemia Qualified Code(s): E78.2 - Mixed hyperlipidemia (5) Diabetes mellitus: Status: Acute Code(s): E11.9 - Type 2 diabetes mellitus without complications Qualifiers: Diabetes mellitus type: type 2 Diabetes mellitus extermination supervisor insulin use: with senior living use Diabetes mellitus complication status: without complication Qualified Code(s): E11.9 - Type 2 diabetes mellitus without complications; Z79.4 - group home (current) use of insulin (6) COPD (chronic obstructive pulmonary disease): Status: Acute Code(s): J44.9 - Chronic obstructive pulmonary disease, unspecified Qualifiers: COPD type: chronic bronchitis Chronic bronchitis type: unspecified Qualified Code(s): J42 - Unspecified chronic bronchitis (7) Hypertension: Status: Acute Code(s): I10 - Essential (primary) hypertension Qualifiers: Hypertension type: primary hypertension Qualified Code(s): I10 - Essential (primary) hypertension (8) Non-STEMI (non-ST elevated myocardial infarction): Status: Acute Code(s): I21.4 - Non-ST elevation (NSTEMI) myocardial infarction Meds Home Medications and Allergies Home Medications ?Medication ?Instructions ?Recorded ?Confirmed ?Type umeclidinium 62.5 mcg/actuation 1 inh inhalation DAILY 04/06/23 02/23/24 History blister powder for inhalation (Incruse Ellipta) mometasone-formoterol HFA 100 2 inh inhalation BID 02/23/24 02/23/24 History mcg-5 mcg/actuation aerosol inhaler (Dulera) insulin glargine 100 unit/mL (3 5 unit SQ HS 02/24/24 02/24/24 History mL) subcutaneous pen (Zakaglsam Cope U-100 Insulin) metoprolol succinate 50 mg 50 mg PO DAILY 02/24/24 02/24/24 History tablet,extended release 24 hr semaglutide 0.25 mg or 0.5 mg (2 0.25 mg SQ WEEKLY 02/24/24 02/24/24 History mg/3 mL) subcutaneous pen injector (Ozempic) aspirin 81 mg tablet,delayed 81 mg PO DAILY 30 days #30 tabs 02/26/24 Rx release atorvastatin 80 mg tablet 80 mg PO HS 30 days #30 tabs 02/26/24 Rx bumetanide 2 mg tablet 2 mg PO DAILY 30 days #45 tabs 02/26/24 Rx clopidogrel 75 mg tablet 30 mg (0.4 x 75 mg) PO DAILY 30 02/26/24 Rx days #12 tabs hydralazine 25 mg tablet 50 mg (2 x 25 mg) PO TID 30 days 02/26/24 Rx #180 tabs isosorbide dinitrate 10 mg tablet 20 mg (2 x 10 mg) PO TID 30 days 02/26/24 Rx #180 tabs New Prescriptions to Start Prescriptions: aspirin [place], atorvastatin [place], bumetanide [place], clopidogrel [place], hydralazine Erik, isosorbide dinitrate Alexanderbabatunde, Allergies Allergy/AdvReac Type Severity Reaction Status Date / Time Penicillins Allergy Verified 04/11/23 14:42 Discharge Plan Disposition Patient Disposition: Home, Self-Care Follow up Plan Prescriptions/Medication Reconciliation: Continued Incruse Ellipta 62.5 mcg/actuation blister with device 1 inh INHALATION DAILY Dulera 100-5 mcg/actuation HFA aerosol inhaler 2 inh INHALATION BID Patient Comments: INHALE 2 PUFFS BY MOUTH TWICE DAILY. RINSE MOUTH WITH WATER AFTER USE TO REDUCE AFTERTASTE AND INCIDENCE OF CANDIDASIS. DO NOT SWALLOW insulin glargine [Basaglar KwikPen U-100 Insulin] 100 unit/mL (3 mL) insulin pen 5 unit SQ HS Patient Comments: INJECT 5 UNITS SUBCUTANEOUSLY EVERY NIGHT AT BEDTIME metoprolol succinate 50 mg tablet extended release 24 hr 50 mg PO DAILY Ozempic 0.25 mg or 0.5 mg (2 mg/3 mL) pen injector 0.25 mg SQ WEEKLY Patient Comments: INJECT 0.25 MG SUBCUTANEOUSLY ONCE A WEEK FOR 4 WEEKS, THEN INCREASE TO 0.5 MG WEEKLY atorvastatin 80 mg tablet 80 mg PO HS 30 Days Qty: 30 0RF Patient Comments: TAKE 1 TABLET BY MOUTH AT NIGHT bumetanide 2 mg tablet 2 mg PO DAILY 30 Days Qty: 45 0RF Rx Instructions: Take 2 mg in the morning, 1 mg in the afternoon. aspirin 81 mg Tablet,Delayed Release (Dr/Ec) 81 mg PO DAILY 30 Days Qty: 30 0RF Changed isosorbide dinitrate 10 mg tablet 20 mg PO TID 30 Days Qty: 180 0RF hydralazine 25 mg tablet 50 mg PO TID 30 Days Qty: 180 0RF Patient Comments: TAKE 1 TABLET BY MOUTH THREE TIMES DAILY clopidogrel 75 mg tablet 30 mg PO DAILY 30 Days Qty: 12 0RF Discontinued losartan 25 mg tablet 25 mg PO DAILY Problem Reconciliation Problems Reviewed?: Yes Patient Discharge Instructions Patient Instructions: DI for Heart Failure Print Language: Czech Providers Primary Care Provider: Provider,Referral Admit Provider: John Valencia Attending Provider: John Valencia
--- NOTE | 2024-02-26 05:27 | PC.NURSE ---
Earlier in this shift pt called out and asked for a breathing treatment. RT was called and treatment was given. Pt has had no other complaints. Denies chest pain. Denies SOA unless laying flat. Pt on 2L NC and tolerating well.
[2024-02-26] MEDS: FLUTICASONE/SALMETEROL 250/50MCG DISKUS 1 PUFF IH (06:27)
[2024-02-26 06:32] LABS: POC Glucose,Bedside 128 (70-110)
[2024-02-26 07:51] LABS: Chloride 107 mmol/L (98-107); Potassium 4.9 mmoL/L (3.5-5.1); Sodium 134 mmol/L (136-145)
[2024-02-26 07:54] LABS: Blood Urea Nitrogen 74 mg/dl (9-20); Creatinine Clearance Estimated 28 mL/min (50-200); Estimated Glomerular Filt Rate 18 ml/min (>60); GFR (African American) 21 ML/MIN (>60)
[2024-02-26 07:55] LABS: Anion Gap 11.9 mEq/L (5-15); Carbon Dioxide 20 mmol/L (22.0-30.0); Glucose 132 mg/dl (74-100)
[2024-02-26] MEDS: ASPIRIN EC 81MG TABLET 81 MG PO (08:27)
[2024-02-26] MEDS: CLOPIDOGREL 75MG TAB 75 MG PO (08:28)
[2024-02-26] MEDS: METOPROLOL SUCCINATE XL 50MG TABLET 50 MG PO (08:28)
[2024-02-26] MEDS: ISOSORBIDE DINITRATE 20 MG TABLET PO ×3 (08:38→20:35)
[2024-02-26] MEDS: HYDRALAZINE HCL 25MG TABLET 50 MG PO ×3 (08:38→20:36)
[2024-02-26] MEDS: BUMETANIDE 1MG/4ML VIAL 2 MG IV ×2 (08:38→16:28)
[2024-02-26] MEDS: humaLOG 100 UNITS/ML 10ML VIAL (SSI) SUBCUT ×2 (10:51→16:31)
[2024-02-26 10:59] LABS: POC Glucose,Bedside 219 (70-110)
[2024-02-26 11:55] LABS: Chloride 106 mmol/L (98-107)
[2024-02-26 11:56] LABS: Potassium 4.9 mmoL/L (3.5-5.1); Sodium 134 mmol/L (136-145)
[2024-02-26 11:59] LABS: Anion Gap 10.9 mEq/L (5-15); Blood Urea Nitrogen 74 mg/dl (9-20); Carbon Dioxide 22 mmol/L (22.0-30.0); Creatinine Clearance Estimated 27 mL/min (50-200); Estimated Glomerular Filt Rate 17 ml/min (>60); GFR (African American) 21 ML/MIN (>60); Glucose 216 mg/dl (74-100)
--- NOTE | 2024-02-26 14:18 | HMH.PTEV ---
Physical Therapy Evaluation Rehab PT IP Evaluation Start: 02/25/24 09:01 Freq: ONCE Status: Active Protocol: Document 02/26/24 13:38 [email or web address] (Rec: 02/26/24 13:49 [email or web address] [id number]) Subjective/History History History Pt. is a 58 year old Male who presents to [facility] 2nd Floor Inpatient w/ c/o COPD, dyspnea , and cough. Pt. reports this is not his first time in the hospital from similar symptoms . Pt. reports he lives alone in a 1-story home where he ambulates w/ a FWW, but mostly uses his W/C to perform ADLs including bathing and dressing self. Pt. presents w/ an above the knee amputation of the LLE where he has a prosthetic in place. Pt. vocalizes it's heavy to have to move it around all the time. PMH includes Congestive heart failure, COPD(chronic obstructive pulmonary disease) , Diabetes mellitus, HFrEF ( heart failure with reduced ejection fraction), History of left heart catheterization ( LHC), Hyperlipidemia, Hypertension, Ischemic cardiomyopathy. Subjective Subjective Pt. reports, I've been standing all morning. New diagnosis of cancer in past 12 No months? Rehab PT IP Eval Objective Appearance Patient Behavior Appropriate,Cooperative Patient Orientation Person,Place,Age Difficulty following instructions none Speech Pattern Clear,Appropriate,Delayed Ambulation Patient Able to Ambulate Yes Ambulation Observation IP General Gait Pattern Observation Wide Based Gait,Shuffling Step Ambulation Distance (feet) 3 Ambulation Assistive Device Rolling Walker Ambulation Ability Minimal x 1 (25% assist) Balance Ability to Arise Able, uses arms to help Sitting Balance Steady, safe Standing Balance Steady, wide stance Dynamic Sitting Balance Ability Good Dynamic Standing Balance Ability Good Transfers Bed Transfer Ability Contact Guard/Hand Hold Chair Transfer Ability Contact Guard/Hand Hold Sit to Stand Bed Transfer Ability Contact Guard/Hand Hold Sit to Stand Chair Transfer Ability Contact Guard/Hand Hold ROM RLE PT ROM Status WFL MMT RLE PT MMT WFL Rehab PT IP prob,goals,plan Problems Date of Evaluation: 02/26/24 PT IP Problems Gait,Balance,Self care,Safety Rehab Potential Rehab Potential Good Equipment Needs Assistive Devices Rolling / Wheeled Walker Plan PT Intervention Plan Transfers,Gait,Balance,Self care,Safety,Therapeutic Exercise PT Plan Frequency BID Duration LOS Discharge Goals Bed Transfer Ability Contact Guard/Hand Hold Sit to Stand Chair Transfer Ability Minimal x 1 (25% assist) Ambulation Assistive Device Rolling Walker Ambulation Distance (feet) 8 Discharge Plan PT Discharge Plan Upon discharge from [facility], once medically stable per MD, pt. is most appropriate for an Inpatient facility to improve muscle strength/endurance and gait/balance to further promote current quality of life w/ ADL function. Eval Complexity Eval Charge Codes 99107 - Low Complexity PHYSICIAN CERTIFICATION: I certify the specified therapy services for Buzz Hurley JR are required, authorized, and reviewed every 30 days.
--- NOTE | 2024-02-26 16:47 | PC.NURSE ---
A&OX4. 2LNC APPLIED AT THIS TIME D/T PATIENT'S REQUEST. EXPLAINED TO PATIENT THAT HIS OXYGEN SATURATION DOES NOT REQUIRE SUPPLEMENTAL O2, HOWEVER PATIENT STATES THAT'S WHAT I AM ON AT HOME, AND I FEEL LIKE I CAN'T CATCH MY BREATH. PATIENT HAS BEEN SITTING ON SIDE OF BED MAJORITY OF SHIFT. ENCOURAGED TO ELEVATE RIGHT LEG, BUT STATES HE IS ONLY COMFORTABLE ON THE SIDE. HAS AMBULATED TO THE BATHROOM WITH WALKER, TOLERATED WELL. HAD LARGE BM, AND HAS HAD URINE OUTPUT VIA URINAL. VERY DARK AND STRONG URINE NOTED. RIGHT LEG IS VERY DISCOLORED, DRY, WITH 2 OPEN SORES TOWARDS THE BOTTOM. SORES ARE BLEEDING, DRESSINGS CHANGED. RIGHT FOOT VERY EDEMATOUS, DRY, AND DISCOLORED. PATIENT STATES HE HAS NO FEELING WHEN I TOUCH HIS RLE. NO OTHER NEEDS OR C/O NOTED. PATIENT SEEMS OVERALL DISCOURAGED AND DOWN. VSS.
--- NOTE | 2024-02-26 18:21 | EXP.ACUTE.PN ---
Subjective *Date: 02/26/24 *Time: 18:21 Interval history: Chronically ill-appearing on rounds this morning. On 1 L oxygen. Poor response to diuresis. Fluid neutral since admission. Tolerating p.o. intake. Wanting to go home, explained the high risk of going home given his poor response so far to treatment and continued significant comorbidities. Patient reports he has not seen a primary care doc since April. Has poor follow-up traditionally as an outpatient. Seems to have poor understanding of his medical conditions. Thought things would get better after he had his left leg amputated. Medical Exam Vital signs and Labs for Last 24 Hours: Vital Signs Temp Pulse Pulse Resp BP Pulse Ox O2 Del Method 02/26/24 16:46 Nasal Cannula 02/26/24 16:00 80 02/26/24 16:00 97.8 F 79 17 149/74 H 100 Nasal Cannula 02/26/24 14:44 Nasal Cannula 02/26/24 13:00 Nasal Cannula 02/26/24 12:00 98.2 F 78 18 147/87 H 99 Nasal Cannula 02/26/24 11:00 Nasal Cannula 02/26/24 09:00 Nasal Cannula 02/26/24 08:00 80 02/26/24 08:00 Nasal Cannula 02/26/24 08:00 97.9 F 78 20 147/90 H 100 Nasal Cannula 02/26/24 07:00 Nasal Cannula 02/26/24 06:27 99 Nasal Cannula 02/26/24 05:00 Nasal Cannula 02/26/24 04:00 97.7 F 72 20 137/91 H 100 Nasal Cannula 02/26/24 03:00 Room Air 02/26/24 01:00 Nasal Cannula 02/26/24 00:00 71 02/26/24 00:00 98.2 F 71 18 133/81 100 Room Air 02/25/24 23:00 Nasal Cannula 02/25/24 21:00 Nasal Cannula 02/25/24 20:00 75 02/25/24 20:00 Nasal Cannula 02/25/24 20:00 98.1 F 78 16 137/67 100 Room Air 02/25/24 19:37 75 02/25/24 19:37 73 O2 Flow Rate 02/26/24 16:46 2 02/26/24 16:00 02/26/24 16:00 2 02/26/24 14:44 2 02/26/24 13:00 2 02/26/24 12:00 1 02/26/24 11:00 1 02/26/24 09:00 1 02/26/24 08:00 02/26/24 08:00 1 02/26/24 08:00 1 02/26/24 07:00 1 02/26/24 06:27 2 02/26/24 05:00 2 02/26/24 04:00 2 02/26/24 03:00 02/26/24 01:00 2 02/26/24 00:00 02/26/24 00:00 02/25/24 23:00 2 02/25/24 21:00 2 02/25/24 20:00 02/25/24 20:00 2 02/25/24 20:00 02/25/24 19:37 02/25/24 19:37 Intake and Output 02/26/24 02/26/24 02/26/24 07:59 15:59 23:59 Intake Total 240 / 1440 720 / 1440 480 / 1440 Output Total 225 / 1000 550 / 1000 225 / 1000 Balance 15 / 440 170 / 440 255 / 440 Intake: Intake, Oral Amount 240 / 1440 720 / 1440 480 / 1440 Output: Output, Urine Amount 225 / 1000 550 / 1000 225 / 1000 Other: Number of Unmeasured Voids 0 1 Number of Bowel Movements 1 1 Weight 86.818 kg Patient Weight 02/26/24 23:59 Weight 86.818 kg Laboratory Results - last 24 hr 02/25/24 20:45: POC Glucose 219 H 02/26/24 06:25: POC Glucose 128 H 02/26/24 06:34: Sodium 134 L, Potassium 4.9, Chloride 107, Carbon Dioxide 20 L, Anion Gap 11.9, BUN 74 H D, Creatinine 3.60 H, Estimated Creat Clear 28, Estimated GFR 18 L*, Est GFR ( Amer) 21 L, Glucose 132 H, Calcium 8.0 L 02/26/24 10:48: POC Glucose 219 H 02/26/24 11:44: Sodium 134 L, Potassium 4.9, Chloride 106, Carbon Dioxide 22, Anion Gap 10.9, BUN 74 H, Creatinine 3.70 H, Estimated Creat Clear 27, Estimated GFR 17 L*, Est GFR ( Amer) 21 L, Glucose 216 H D, Calcium 8.0 L I & O for Labs for Last 24 Hours: Intake & Output 02/23/24 02/24/24 02/25/24 02/26/24 23:59 23:59 23:59 23:59 Intake Total 240 / 240 930 / 930 930 / 930 1440 / 1440 Output Total 175 / 175 900 / 900 575 / 575 1000 / 1000 Balance 65 / 65 30 355 / 355 440 / 440 Weight 85.729 kg 84.867 kg 86.818 kg 86.818 kg Constitutional: Present no acute distress and chronically ill appearing Head: Present atraumatic and normocephalic ENT: Present normal exam Neck: Present normal inspection Respiratory: Present prolonged expiratory phase, crackles (Bases bilateral) and diminished air movement; Absent rhonchi or wheezes Cardiac: Present Reg Rate and Rhythm GI: Present soft and normal bowel sounds; Absent distention or tenderness Extremities: Present normal inspection, full ROM and edema (1-2+ right lower extremity to knee) Comment:: Left AKA Skin: Present intact; Absent erythema Neuro: Present Grossly Intact and moves all extremities Assessment and Plan *Assessment and plan (1) HFrEF (heart failure with reduced ejection fraction): Status: Acute Category: Medical Code(s): I50.20 - Unspecified systolic (congestive) heart failure (2) Ischemic cardiomyopathy: Status: Acute Category: Medical Code(s): I25.5 - Ischemic cardiomyopathy (3) Peripheral arterial disease: Status: Acute Category: Medical Code(s): I73.9 - Peripheral vascular disease, unspecified (4) Hyperlipidemia: Status: Acute Qualifiers: Hyperlipidemia type: mixed hyperlipidemia Qualified Code(s): E78.2 - Mixed hyperlipidemia Category: Medical Code(s): E78.5 - Hyperlipidemia, unspecified (5) Diabetes mellitus: Status: Acute Qualifiers: Diabetes mellitus type: type 2 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: with long distance billing operator use Diabetes mellitus complication status: without complication Qualified Code(s): E11.9 - Type 2 diabetes mellitus without complications; Z79.4 - residential (current) use of insulin Category: Medical Code(s): E11.9 - Type 2 diabetes mellitus without complications (6) COPD (chronic obstructive pulmonary disease): Status: Acute Qualifiers: COPD type: chronic bronchitis Chronic bronchitis type: unspecified Qualified Code(s): J42 - Unspecified chronic bronchitis Category: Medical Code(s): J44.9 - Chronic obstructive pulmonary disease, unspecified (7) Hypertension: Status: Acute Qualifiers: Hypertension type: primary hypertension Qualified Code(s): I10 - Essential (primary) hypertension Category: Medical Code(s): I10 - Essential (primary) hypertension (8) Non-STEMI (non-ST elevated myocardial infarction): Status: Acute Category: Medical Code(s): I21.4 - Non-ST elevation (NSTEMI) myocardial infarction (9) CKD stage 4 due to type 2 diabetes mellitus: Status: Acute Category: Medical Code(s): E11.22 - Type 2 diabetes mellitus with diabetic chronic kidney disease; N18.4 - Chronic kidney disease, stage 4 (severe) Plan This is a 58-year-old male being admitted for acute on chronic CHF exacerbation. Condition complicated by his poorly controlled diabetes, peripheral vascular disease, CKD 4. Continues to require oxygen, wearing 1 to 2 L. Very poor response so far to diuresis. Continues to require inpatient management for increased aggressive diuresis. Close monitoring of kidney function and electrolytes. Problems addressed as follows: #Acute on chronic hypoxic respiratory failure HFrEF exacerbation NSTEMI type II CKD stage IV ? History of CAD status post 3 stents in March. ? Troponins plateaued around 0.26, down to 0.17, asymptomatic. likely represents type II NSTEMI in the setting of HFrEF exacerbation. ?Poor response to diuresis. If ins and outs measured are accurate, patient is neutral since admission. Increased diuresis to Bumex 2 mg IV twice daily -Repeat BMP ordered for the afternoon, CMP, CBC, magnesium ordered for the morning. -Creatinine bumped this morning to 3.6, BUN 74. Patient still frankly appears volume overloaded. ? BNP elevated at 79,000 on admission, improved to 39,000 yesterday. - ECHO shows LVEF 20% with similar inferior akinesis as March this year, had been LVEF 30% earlier this. Patient does not want LifeVest at this time after extensively discussing risks and benefits. - Continue aspirin, Plavix 75 mg. ? Given patient's advanced CKD stage IV, unable to start NARESH/ARB/ARNI, MRA, or SGLT2i. - hydralazine 50 mg 3 times daily, Isordil to 20 mg 3 times daily after speaking to cardiology. #Physical deconditioning ? therapy recommended SNF. However, patient declines at this time. Plan to set up home health on discharge. Therapy working with patient daily. Type 2 diabetes Diabetic neuropathy -Hemoglobin A1c 7.8; glucose this morning 132 -Continue Lantus at 13 units nightly -SSI for additional glycemic control COPD -Not in acute exacerbation, on baseline oxygen requirements 1 to 2 L continuous -DuoNebs as needed, Continue Dulera -Maintain SpO2 greater than 90% HTN HLD -Continue statin, beta-stacy, hydralazine DVT prophylaxis: Heparin CODE STATUS: Full code Surrogate decision maker: Saurabh [phone] Lovenox 30 mg subcu daily
[2024-02-26 20:29] LABS: POC Glucose,Bedside 155 (70-110)
[2024-02-26] MEDS: ATORVASTATIN 40MG TABLET 80 MG PO (20:35)
[2024-02-26] MEDS: INSULIN GLARGINE 100 UNITS/ML 3ML FLEXPEN 10 UNIT SUBCUT (20:37)
[2024-02-27] VITALS (7 sets, daily range): BP systolic 123–162; BP diastolic 69–98; PULSE 60–81; RESP 16–20; TEMP 36.5–36.7; O2SAT 96–100; BMI 25.0
[2024-02-27] MEDS: MELATONIN 5MG TABLET 10 MG PO (02:10)
--- NOTE | 2024-02-27 02:12 | EXP.EVENT.NO ---
Patient anxiety : Patient told the nurse that she he wanted to speak with me. Patient had similar problems at bedtime last night said he could not breathe they placed him on BiPAP for about 5 minutes he said he did not want that they took it off and he was then able to sleep for the rest the night.. exam: Find the patient on oxygen not having any real difficulty breathing at this point in time he basically tells me he is just needing something for sleep. We did discuss CPAP if he was having trouble we could try that instead of the BiPAP because he was not able to tolerate BiPAP in the past. At this point in time though will order melatonin 10 mg to see if this will help him sleep. Patient is stable at present time
--- NOTE | 2024-02-27 04:29 | PC.NURSE ---
58 yo male pt is A/O X 3. Pt has not been out of bed this shift but has been sitting on the side of the bed, several times through the night. He began to complain of increased SOA despite 02 sats at 100% on 2 liter/nc. He requested that he speak with provider regarding his SOA. Nurse contacted COOPER HELPER Kg Camilo who came to see pt and ordered Melatonin as pt relayed anxiety to him. Melatonin given, but was not effective. Notified Kg who ordered pt be set up with BiPAP. Call placed to [facility]. Pt set up with BiPAP machine however, nurse/commercial loan underwriter found that pt had removed it and put the NC back on. Pt has also had 2 occasions where pt has had blood spotted tissues, pt reports being from his nose. Dressing intact to RLE, FSBS 155 at 9pm VS WNL for pt. NS on tele
[2024-02-27] MEDS: humaLOG 100 UNITS/ML 10ML VIAL (SSI) SUBCUT ×3 (06:08→20:27)
[2024-02-27 06:29] LABS: POC Glucose,Bedside 181 (70-110)
[2024-02-27] MEDS: FLUTICASONE/SALMETEROL 250/50MCG DISKUS 1 PUFF IH ×3 (06:48→19:44)
[2024-02-27 07:20] LABS: Basophils % 0.4 % (0.1-2.0); Eosinophils # 0.1 K/mm3 (0.0-0.4); Eosinophils % 2.2 % (0.1-12.0); Hematocrit 34.6 % (42.0-52.0); Hemoglobin 11.2 g/dL (14.1-18.0); Lymphocytes % 21.1 % (10-50); Mean Corpuscular HGB Conc 32.3 g/dL (31.8-35.4); Mean Corpuscular Hemoglobin 27.3 pg (27.0-31.2); Mean Corpuscular Volume 84.5 fl (80-94); Mean Platelet Volume 9.5 fl (7.4-10.4); Monocytes # 0.4 K/mm3 (0.1-1.0); Monocytes % 8.3 % (1.7-9.3); Neutrophils # 3.1 K/mm3 (1.8-7.8); Platelet Count 160 K/mm3 (142-424); Red Blood Count 4.09 M/mm3 (4.60-6.20); Red Cell Distribution Width 18.6 % (11.5-17.5); White Blood Count 4.5 K/mm3 (4.8-10.8)
[2024-02-27 07:34] LABS: Albumin Level 3.1 g/dl (3.5-5.0); Chloride 106 mmol/L (98-107)
[2024-02-27 07:35] LABS: Potassium 4.1 mmoL/L (3.5-5.1); Sodium 136 mmol/L (136-145)
[2024-02-27 07:37] LABS: Alanine Aminotransferase 16 U/L (12-78); Albumin/Globulin Ratio 1.1 (1.1-1.8); Anion Gap 15.1 mEq/L (5-15); Aspartate Amino Transferase 36 U/L (17-59); Carbon Dioxide 19 mmol/L (22.0-30.0); Creatinine Clearance Estimated 26 mL/min (50-200); Estimated Glomerular Filt Rate 17 ml/min (>60); GFR (African American) 20 ML/MIN (>60); Globulin 2.7 g/dL (1.3-3.2); Total Protein,Serum 5.8 g/dl (6.3-8.2)
[2024-02-27 07:38] LABS: Alkaline Phosphatase 276 U/L (38-126); Calcium 7.7 mg/dl (8.4-10.2); Glucose 188 mg/dl (74-100); Magnesium 2.2 mg/dl (1.6-2.3)
[2024-02-27 07:42] LABS: Blood Urea Nitrogen 84 mg/dl (9-20)
--- NOTE | 2024-02-27 08:06 | EXP.ACUTE.PN ---
Subjective *Date: 02/27/24 *Time: 19:04 Interval history: Appears chronically ill. Stable on 2 L. No chest pain or shortness of breath. Tolerating p.o. intake. Having response to increased diuretic regimen. Urine light yellow. Alert and oriented x 3. Disappointed he is not going home today, but explained the complexity of his conditions. Patient states understanding Medical Exam Vital signs and Labs for Last 24 Hours: Vital Signs Temp Pulse Pulse Resp BP Pulse Ox O2 Del Method 02/27/24 06:53 Nasal Cannula 02/27/24 06:49 99 Nasal Cannula 02/27/24 05:00 Nasal Cannula 02/27/24 04:00 60 02/27/24 04:00 97.7 F 72 20 123/78 100 Nasal Cannula 02/27/24 03:41 02/27/24 03:00 Nasal Cannula 02/27/24 01:00 Nasal Cannula 02/27/24 00:00 80 02/27/24 00:00 98.1 F 81 18 156/69 H 99 Nasal Cannula 02/26/24 23:00 Nasal Cannula 02/26/24 21:00 Nasal Cannula 02/26/24 20:00 80 02/26/24 20:00 100 Nasal Cannula 02/26/24 20:00 97.9 F 75 18 141/85 H 100 Nasal Cannula 02/26/24 18:56 Nasal Cannula 02/26/24 16:46 Nasal Cannula 02/26/24 16:00 80 02/26/24 16:00 97.8 F 79 17 149/74 H 100 Nasal Cannula 02/26/24 14:44 Nasal Cannula 02/26/24 13:00 Nasal Cannula 02/26/24 12:00 98.2 F 78 18 147/87 H 99 Nasal Cannula 02/26/24 11:00 Nasal Cannula 02/26/24 09:00 Nasal Cannula O2 Flow Rate 02/27/24 06:53 2 02/27/24 06:49 2 02/27/24 05:00 2 02/27/24 04:00 02/27/24 04:00 2 02/27/24 03:41 28 02/27/24 03:00 2 02/27/24 01:00 2 02/27/24 00:00 02/27/24 00:00 2 02/26/24 23:00 2 02/26/24 21:00 2 02/26/24 20:00 02/26/24 20:00 2 02/26/24 20:00 2 02/26/24 18:56 2 02/26/24 16:46 2 02/26/24 16:00 02/26/24 16:00 2 02/26/24 14:44 2 02/26/24 13:00 2 02/26/24 12:00 1 02/26/24 11:00 1 02/26/24 09:00 1 Intake and Output 02/26/24 02/27/24 02/27/24 23:59 07:59 15:59 Intake Total 480 / 1440 Output Total 775 / 1550 575 / 575 Balance -295 / -110 -575 / -575 Intake: Intake, Oral Amount 480 / 1440 Output: Output, Urine Amount 775 / 1550 575 / 575 Other: Number of Unmeasured Voids 0 0 Weight 83.915 kg Patient Weight 02/27/24 23:59 Weight 83.915 kg Laboratory Results - last 24 hr 02/26/24 10:48: POC Glucose 219 H 02/26/24 11:44: Sodium 134 L, Potassium 4.9, Chloride 106, Carbon Dioxide 22, Anion Gap 10.9, BUN 74 H, Creatinine 3.70 H, Estimated Creat Clear 27, Estimated GFR 17 L*, Est GFR ( Amer) 21 L, Glucose 216 H D, Calcium 8.0 L 02/26/24 20:20: POC Glucose 155 H 02/27/24 06:02: POC Glucose 181 H 02/27/24 06:45: WBC 4.5 L, RBC 4.09 L, Hgb 11.2 L, Hct 34.6 L, MCV 84.5, MCH 27.3, MCHC 32.3, RDW 18.6 H, Plt Count 160, MPV 9.5, Neut % (Auto) 68.0, Lymph % (Auto) 21.1, [place] % (Auto) 8.3, Eos % (Auto) 2.2, Baso % (Auto) 0.4, Neut # (Auto) 3.1, Lymph # (Auto) 1.0, [place] # (Auto) 0.4, Eos # (Auto) 0.1, Baso # (Auto) 0.0, Sodium 136, Potassium 4.1, Chloride 106, Carbon Dioxide 19 L, Anion Gap 15.1 H, BUN 84 H, Creatinine 3.80 H, Estimated Creat Clear 26, Estimated GFR 17 L*, Est GFR ( Amer) 20 L, Glucose 188 H, Calcium 7.7 L, Magnesium 2.2, Total Bilirubin 1.0, AST 36, ALT 16, Alkaline Phosphatase 276 H, Total Protein 5.8 L, Albumin 3.1 L, Globulin 2.7, Albumin/Globulin Ratio 1.1 I & O for Labs for Last 24 Hours: Intake & Output 02/24/24 02/25/24 02/26/24 02/27/24 23:59 23:59 23:59 23:59 Intake Total 930 / 930 930 / 930 1440 / 1440 Output Total 900 / 900 575 / 575 1550 / 1550 575 / 575 Balance 355 / 355 -110 / -110 -575 / -575 Weight 84.867 kg 86.818 kg 86.818 kg 83.915 kg Constitutional: Present no acute distress and chronically ill appearing Head: Present atraumatic and normocephalic ENT: Present normal exam Neck: Present normal inspection Respiratory: Present prolonged expiratory phase, crackles (Bases bilateral) and diminished air movement; Absent rhonchi or wheezes Cardiac: Present Reg Rate and Rhythm GI: Present soft and normal bowel sounds; Absent distention or tenderness Extremities: Present normal inspection, full ROM and edema (2+ right lower extremity to knee; weeping stasis wounds in leg) Comment:: Left AKA Skin: Present intact; Absent erythema Neuro: Present Grossly Intact and moves all extremities Assessment and Plan *Assessment and plan (1) HFrEF (heart failure with reduced ejection fraction): Status: Acute Category: Medical Code(s): I50.20 - Unspecified systolic (congestive) heart failure (2) Ischemic cardiomyopathy: Status: Acute Category: Medical Code(s): I25.5 - Ischemic cardiomyopathy (3) Peripheral arterial disease: Status: Acute Category: Medical Code(s): I73.9 - Peripheral vascular disease, unspecified (4) Hyperlipidemia: Status: Acute Qualifiers: Hyperlipidemia type: mixed hyperlipidemia Qualified Code(s): E78.2 - Mixed hyperlipidemia Category: Medical Code(s): E78.5 - Hyperlipidemia, unspecified (5) Diabetes mellitus: Status: Acute Qualifiers: Diabetes mellitus complication status: without complication Diabetes mellitus senior care insulin use: with senior care use Diabetes mellitus type: type 2 Qualified Code(s): E11.9 - Type 2 diabetes mellitus without complications; Z79.4 - rat exterminator (current) use of insulin Category: Medical Code(s): E11.9 - Type 2 diabetes mellitus without complications (6) COPD (chronic obstructive pulmonary disease): Status: Acute Qualifiers: COPD type: chronic bronchitis Chronic bronchitis type: unspecified Qualified Code(s): J42 - Unspecified chronic bronchitis Category: Medical Code(s): J44.9 - Chronic obstructive pulmonary disease, unspecified (7) Hypertension: Status: Acute Qualifiers: Hypertension type: primary hypertension Qualified Code(s): I10 - Essential (primary) hypertension Category: Medical Code(s): I10 - Essential (primary) hypertension (8) Non-STEMI (non-ST elevated myocardial infarction): Status: Acute Category: Medical Code(s): I21.4 - Non-ST elevation (NSTEMI) myocardial infarction (9) CKD stage 4 due to type 2 diabetes mellitus: Status: Acute Category: Medical Code(s): E11.22 - Type 2 diabetes mellitus with diabetic chronic kidney disease; N18.4 - Chronic kidney disease, stage 4 (severe) Plan This is a 58-year-old male being admitted for acute on chronic CHF exacerbation. Condition complicated by his poorly controlled diabetes, peripheral vascular disease, CKD 4. Continues to require oxygen, wearing 1 to 2 L. Very poor response so far to diuresis. Continues to require inpatient management for increased aggressive diuresis. Close monitoring of kidney function and electrolytes. Problems addressed as follows: #Acute on chronic hypoxic respiratory failure HFrEF exacerbation NSTEMI type II CKD stage IV ? History of CAD status post 3 stents in March. ? Continue Bumex 2 mg IV twice daily. Having improved response. Negative at least 1 L in the past 24 hours. Bump in creatinine to 3.8 this morning, BUN 84. Close monitoring of kidney function and electrolytes with BMP this afternoon and CBC, CMP, magnesium ordered for the morning. Replacing electrolytes per protocol. Potassium 4.1, magnesium 2.2. -Anticipate bump in kidney function while we aggressively diuresed, anticipate function will improve with better perfusion and improvement in volume status as he is making good urine. -Metabolic acidosis with bicarb of 19, initiate bicarb replacement with 650 mg p.o. 3 times a day ? BNP elevated at 79,000 on admission, improved to 39,000 02/24, repeat ordered for the morning. - ECHO shows LVEF 20% with similar inferior akinesis as March this year, had been LVEF 30% earlier this. Patient does not want LifeVest at this time after extensively discussing risks and benefits. - Continue aspirin, Plavix 75 mg. ? Given patient's advanced CKD stage IV, unable to start NARESH/ARB/ARNI, MRA, or SGLT2i. - hydralazine 50 mg 3 times daily, Isordil to 20 mg 3 times daily after speaking to cardiology. #Physical deconditioning ? therapy recommended SNF. However, patient declines at this time. Plan to set up home health on discharge. Therapy working with patient daily. Type 2 diabetes Diabetic neuropathy -Hemoglobin A1c 7.8; glucose this morning 132 -Continue Lantus at 13 units nightly -SSI for additional glycemic control COPD -Not in acute exacerbation, on baseline oxygen requirements 1 to 2 L continuous -DuoNebs as needed, Continue Dulera -Maintain SpO2 greater than 90% HTN HLD -Continue statin, beta-stacy, hydralazine DVT prophylaxis: Heparin CODE STATUS: Full code Surrogate decision maker: Saurabh [phone] Lovenox 30 mg subcu daily
[2024-02-27] MEDS: METOPROLOL SUCCINATE XL 50MG TABLET 50 MG PO (09:59)
[2024-02-27] MEDS: ENOXAPARIN 30MG/0.3ML SYRINGE 30 MG SUBCUT (09:59)
[2024-02-27] MEDS: BUMETANIDE 1MG/4ML VIAL 2 MG IV ×2 (09:59→15:40)
[2024-02-27] MEDS: HYDRALAZINE HCL 25MG TABLET 50 MG PO ×3 (09:59→20:16)
[2024-02-27] MEDS: CLOPIDOGREL 75MG TAB 75 MG PO (10:00)
[2024-02-27] MEDS: SODIUM BICARBONATE 650MG TABLET 650 MG PO ×3 (10:00→20:16)
[2024-02-27] MEDS: ASPIRIN EC 81MG TABLET 81 MG PO (10:00)
[2024-02-27] MEDS: ISOSORBIDE DINITRATE 20 MG TABLET PO ×3 (10:00→20:16)
[2024-02-27 10:12] LABS: POC Glucose,Bedside 211 (70-110)
--- NOTE | 2024-02-27 14:50 | PC.NURSE ---
Pt. is aox 3, up with assistance times one with a walker, fsbg achs, 20g L FA SL, 02-2l nc, uses urinal, rle drsg c/d/i, fluid restriction of 1,500, bed alarm active, pt and ot consulted, cardiology and podiatry consulted.
[2024-02-27 16:05] LABS: POC Glucose,Bedside 119 (70-110)
[2024-02-27 17:23] LABS: Chloride 108 mmol/L (98-107); Sodium 138 mmol/L (136-145)
[2024-02-27 17:24] LABS: Potassium 4.3 mmoL/L (3.5-5.1)
[2024-02-27 17:27] LABS: Anion Gap 12.3 mEq/L (5-15); Calcium 7.9 mg/dl (8.4-10.2); Carbon Dioxide 22 mmol/L (22.0-30.0); Creatinine Clearance Estimated 27 mL/min (50-200); Estimated Glomerular Filt Rate 18 ml/min (>60); GFR (African American) 21 ML/MIN (>60); Glucose 123 mg/dl (74-100)
[2024-02-27 17:29] LABS: Blood Urea Nitrogen 86 mg/dl (9-20)
--- NOTE | 2024-02-27 19:39 | XR_ITS ---
PROCEDURE INFORMATION: Exam: XR Right Foot Exam date and time: 02/27/2024 7:39 PM Age: 58 years old Clinical indication: Other: Dfu; Additional info: Dfu, pvd TECHNIQUE: Imaging protocol: Radiologic exam of the right foot. Views: 3 or more views. COMPARISON: No relevant prior studies available. FINDINGS: Bones/joints: No fracture or bone destruction. Soft tissues: Dorsal soft tissue swelling. Vasculature: Retic type vascular calcifications. IMPRESSION: 1. Dorsal soft tissue swelling. 2. No fracture or bone destruction. 3. Retic type vascular calcifications.
[2024-02-27] MEDS: ATORVASTATIN 40MG TABLET 80 MG PO (20:16)
[2024-02-27] MEDS: INSULIN GLARGINE 100 UNITS/ML 3ML FLEXPEN 10 UNIT SUBCUT (20:18)
[2024-02-27 20:29] LABS: POC Glucose,Bedside 194 (70-110)
[2024-02-27] MEDS: MELATONIN 5MG TABLET 5 MG PO (22:09)
[2024-02-27] MEDS: diphenhydrAMINE 25MG CAPSULE 25 MG PO (22:09)
[2024-02-28] VITALS (8 sets, daily range): BP systolic 122–150; BP diastolic 70–95; PULSE 74–90; RESP 16–20; TEMP 36.5–36.8; O2SAT 98–99; BMI 25.0
--- NOTE | 2024-02-28 00:52 | PC.NURSE ---
Patient refused midnight vitals. He states You all come in here every 15 minutes to do vitals and don't tell me differently. I said, you have the right to refuse them he then said, Well I'd like to refuse then. This SRNA let Tawana KILGORE know of refusal.
--- NOTE | 2024-02-28 06:00 | US_ITS ---
FINAL REPORT CLINICAL HISTORY: L AKA, R DFU/PVD, previous smoker, HTN, DM, hyperlipidemia, hx AR, right leg pain, right leg ulcer right great toe. COMPARISON: None FINDINGS: ANKLE-BRACHIAL PRESSURE INDICES Pressure indices are as follows: RIGHT LOWER EXTREMITY: Ankle-brachial pressure index: 1.12 Comments: Normal LEFT LOWER EXTREMITY: ABIs were not performed on the left leg as the patient has had an [id number] amputation of that extremity. CONCLUSION: No evidence of significant obstructive peripheral vascular disease of the right lower extremity. Reviewed, Interpreted and Dictated by Marco Antonio Matt III, MD Transcribed by Tere Cisneros Authenticated and [facility]
--- NOTE | 2024-02-28 06:50 | EXP.POD.CONS ---
Documented by User: Madelyn Juarez Chuyyanique, [employer] 02/28/24 09:42 History of Present Illness *Admission Date: 02/23/24 *Reason for visit:: Diabetic Right foot Edema *History of present illness: 58 yr. old male, presents with HX of acute on Chronic CHF exacerbation. Poorly controlled diabetes, peripheral vascular disease, CKD 4. Type 2 diabetes with diabetic neuropathy, hemoglobin A1c 7.8% podiatry consulted for right lower extremity edema, diabetic foot, L AKA. [facility] Disclaimer: The information contained in this section may have been updated after the patient was seen, as this information can be updated by other users. 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 Above knee amputation of left lower extremity Acute blood loss anemia Asthma Atypical angina CAD in [place] artery Congestive heart failure COPD (chronic obstructive pulmonary disease) Diabetes mellitus Diabetes mellitus, type 2 HFrEF (heart failure with reduced ejection fraction) History of left heart catheterization (LHC) Hyperlipidemia Hypertension Ischemic cardiomyopathy LV dysfunction Peripheral arterial disease Stenosis of carotid artery Thoracic aneurysm without mention of rupture Surgical History History of cholecystectomy Status post above-knee amputation of left lower extremity Stented coronary artery Family History Family history of cancer Social History (Updated 02/23/24 @ 19:22 by Juan Adams RN) Smoking Status: Former smoker tobacco type: cigarettes packs per day: 2 alcohol intake: never current occupational status: disabled housing: house current occupational exposures/hazards: No Meds Home Medications and Allergies Home Medications ?Medication ?Instructions ?Recorded ?Confirmed ?Type umeclidinium 62.5 mcg/actuation 1 inh inhalation DAILY 04/06/23 02/23/24 History blister powder for inhalation (Incruse Ellipta) mometasone-formoterol HFA 100 2 inh inhalation BID 02/23/24 02/23/24 History mcg-5 mcg/actuation aerosol inhaler (Dulera) insulin glargine 100 unit/mL (3 5 unit SQ HS 02/24/24 02/24/24 History mL) subcutaneous pen (Basaglar KwikPen U-100 Insulin) metoprolol succinate 50 mg 50 mg PO DAILY 02/24/24 02/24/24 History tablet,extended release 24 hr semaglutide 0.25 mg or 0.5 mg (2 0.25 mg SQ WEEKLY 02/24/24 02/24/24 History mg/3 mL) subcutaneous pen injector (Ozempic) aspirin 81 mg tablet,delayed 81 mg PO DAILY 30 days #30 tabs 02/26/24 Rx release atorvastatin 80 mg tablet 80 mg PO HS 30 days #30 tabs 02/26/24 Rx bumetanide 2 mg tablet 2 mg PO DAILY 30 days #45 tabs 02/26/24 Rx clopidogrel 75 mg tablet 30 mg (0.4 x 75 mg) PO DAILY 30 02/26/24 Rx days #12 tabs hydralazine 25 mg tablet 50 mg (2 x 25 mg) PO TID 30 days 02/26/24 Rx #180 tabs isosorbide dinitrate 10 mg tablet 20 mg (2 x 10 mg) PO TID 30 days 02/26/24 Rx #180 tabs New Prescriptions to Start Prescriptions: aspirin Erik, atorvastatin Erik, bumetanide Erik, clopidogrel Erik, hydralazine Erik, isosorbide dinitrate Erik, Allergies Allergy/AdvReac Type Severity Reaction Status Date / Time Penicillins Allergy Verified 04/11/23 14:42 Exam (Inpt) Vital signs and Labs for Last 24 Hours: Temp Pulse Resp BP Pulse Ox O2 Del Method O2 Flow Rate 97.9 F 78 16 139/88 99 Nasal Cannula 2 02/28/24 04:00 02/28/24 04:00 02/28/24 04:00 02/28/24 04:00 02/28/24 04:00 02/28/24 04:00 02/28/24 04:00 Laboratory Results - last 24 hr 02/27/24 06:45: WBC 4.5 L, RBC 4.09 L, Hgb 11.2 L, Hct 34.6 L, MCV 84.5, MCH 27.3, MCHC 32.3, RDW 18.6 H, Plt Count 160, MPV 9.5, Neut % (Auto) 68.0, Lymph % (Auto) 21.1, Bay % (Auto) 8.3, Eos % (Auto) 2.2, Baso % (Auto) 0.4, Neut # (Auto) 3.1, Lymph # (Auto) 1.0, Bay # (Auto) 0.4, Eos # (Auto) 0.1, Baso # (Auto) 0.0, Sodium 136, Potassium 4.1, Chloride 106, Carbon Dioxide 19 L, Anion Gap 15.1 H, BUN 84 H, Creatinine 3.80 H, Estimated Creat Clear 26, Estimated GFR 17 L*, Est GFR ( Amer) 20 L, Glucose 188 H, Calcium 7.7 L, Magnesium 2.2, Total Bilirubin 1.0, AST 36, ALT 16, Alkaline Phosphatase 276 H, Total Protein 5.8 L, Albumin 3.1 L, Globulin 2.7, Albumin/Globulin Ratio 1.1 02/27/24 10:05: POC Glucose 211 H 02/27/24 15:58: POC Glucose 119 H 02/27/24 17:10: Sodium 138, Potassium 4.3, Chloride 108 H, Carbon Dioxide 22, Anion Gap 12.3, BUN 86 H, Creatinine 3.60 H, Estimated Creat Clear 27, Estimated GFR 18 L*, Est GFR ( Amer) 21 L, Glucose 123 H D, Calcium 7.9 L 02/27/24 20:13: POC Glucose 194 H I & O for Labs for Last 24 Hours: Intake & Output 02/25/24 02/26/24 02/27/24 02/28/24 23:59 23:59 23:59 23:59 Intake Total 930 / 930 1440 / 1440 780 / 780 Output Total 575 / 575 1550 / 1550 2700 / 2700 1050 / 1050 Balance 355 / 355 -110 / -110 -1920 / -1920 -1050 / -1050 Weight 191 lb 6.4 oz 191 lb 6.415 oz 185 lb 185 lb 0.014 oz Constitutional: Present no acute distress and cooperative Head: Present normocephalic Eye: Present as per HPI Neck: Present trachea midline Respiratory: Present normal respiratory effort and able to speak in complete sentences Comment:: nasal cannula @ 2lpm Cardiac: Present posterior tibial pulses present Comments:: deferred Rectal (male): Present deferred (male): Present deferred Extremities: Present edema Comment:: L AKA, RLE edema Skin: Present dry and warm Neuro: Present oriented x 3 Ankle: right: swelling (RLE ) Feet/Toes: left: amputation (L AKA ) and right: nail abnormalities and right: swelling (RLE ) Inspection: Present nail disorder Pulses: L dorsalis pedis pulse: diminished, R dorsalis pedis pulse: diminished, L posterior tibial pulse: diminished and R posterior tibial pulse: diminished CFT: normal: CFT Monofilament exam: R 1st metatarsals: decreased, R 3rd metatarsals: decreased, R 5th metatarsals: decreased, R great toe: decreased, R 3rd toe: decreased and R 5th toe: decreased Results Labs 02/28/24 05:44 02/28/24 05:44 Labs: Abnormal lab results 02/27/24 02/27/24 02/27/24 Range/Units 06:45 10:05 15:58 WBC 4.5 L (4.8-10.8) K/mm3 RBC 4.09 L (4.60-6.20) M/mm3 Hgb 11.2 L (14.1-18.0) g/dL Hct 34.6 L (42.0-52.0) % RDW 18.6 H (11.5-17.5) % Chloride (98-107) mmol/L Carbon Dioxide 19 L (22.0-30.0) mmol/L Anion Gap 15.1 H (5-15) mEq/L BUN 84 H (9-20) mg/dl Creatinine 3.80 H (0.66-1.25) mg/dl Estimated GFR 17 L* (>60) ml/min Est GFR ( Amer) 20 L (>60) ML/MIN Glucose 188 H (74-100) mg/dl POC Glucose 211 H 119 H (70-110) Calcium 7.7 L (8.4-10.2) mg/dl Alkaline Phosphatase 276 H (38-126) U/L Total Protein 5.8 L (6.3-8.2) g/dl Albumin 3.1 L (3.5-5.0) g/dl 02/27/24 02/27/24 Range/Units 17:10 20:13 WBC (4.8-10.8) K/mm3 RBC (4.60-6.20) M/mm3 Hgb (14.1-18.0) g/dL Hct (42.0-52.0) % RDW (11.5-17.5) % Chloride 108 H (98-107) mmol/L Carbon Dioxide (22.0-30.0) mmol/L Anion Gap (5-15) mEq/L BUN 86 H (9-20) mg/dl Creatinine 3.60 H (0.66-1.25) mg/dl Estimated GFR 18 L* (>60) ml/min Est GFR ( Amer) 21 L (>60) ML/MIN Glucose 123 H D (74-100) mg/dl POC Glucose 194 H (70-110) Calcium 7.9 L (8.4-10.2) mg/dl Alkaline Phosphatase (38-126) U/L Total Protein (6.3-8.2) g/dl Albumin (3.5-5.0) g/dl H & H 02/24/24 02/25/24 02/27/24 Range/Units 03:20 05:42 06:45 Hgb 11.7 L 10.7 L 11.2 L (14.1-18.0) g/dL Hct 35.8 L 33.4 L 34.6 L (42.0-52.0) % All other labs normal. Assessment and Plan *Assessment and plan (1) Total avulsion of nail plate: Status: Acute Category: Medical (2) Onychodystrophy: Status: Acute Category: Medical Code(s): L60.3 - Nail dystrophy (3) Pain due to onychomycosis of nail: Status: Acute Category: Medical Code(s): B35.1 - Tinea unguium; M79.609 - Pain in unspecified limb (4) PVD (peripheral vascular disease) with claudication: Status: Acute Category: Medical Code(s): I73.9 - Peripheral vascular disease, unspecified (5) Lymphedema of right lower extremity: Status: Acute Category: Medical Code(s): I89.0 - Lymphedema, not elsewhere classified (6) Diabetic leg ulcer: Status: Acute Category: Medical Code(s): E11.622 - Type 2 diabetes mellitus with other skin ulcer; L97.909 - Non-pressure chronic ulcer of unspecified part of unspecified lower leg with unspecified severity Plan 02/28/24: 02/27/2024 right foot 3 view foot x-ray FINDINGS: Bones/joints: No fracture or bone destruction. Soft tissues: Dorsal soft tissue swelling. Vasculature: Retic type vascular calcifications. IMPRESSION: 1. Dorsal soft tissue swelling. 2. No fracture or bone destruction. 3. Diabetic type vascular calcifications. Labs: 02/27/24, WBC 4.5 and 86, creatinine 3.60, GFR 18 glucose 123, protein 5.8 02/28/24: Documented by User: Citlali Joel DPM 02/28/24 08:45 PFSH PFSH 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 Above knee amputation of left lower extremity Acute blood loss anemia Asthma Atypical angina CAD in [place] artery Congestive heart failure COPD (chronic obstructive pulmonary disease) Diabetes mellitus Diabetes mellitus, type 2 HFrEF (heart failure with reduced ejection fraction) History of left heart catheterization (LHC) Hyperlipidemia Hypertension Ischemic cardiomyopathy LV dysfunction Peripheral arterial disease Stenosis of carotid artery Thoracic aneurysm without mention of rupture Surgical History History of cholecystectomy Status post above-knee amputation of left lower extremity Stented coronary artery Family History Family history of cancer Social History (Updated 02/23/24 @ 19:22 by Juan Adams RN) Smoking Status: Former smoker tobacco type: cigarettes packs per day: 2 alcohol intake: never current occupational status: disabled housing: house current occupational exposures/hazards: No Meds Home Medications and Allergies Home Medications ?Medication ?Instructions ?Recorded ?Confirmed ?Type umeclidinium 62.5 mcg/actuation 1 inh inhalation DAILY 04/06/23 02/23/24 History blister powder for inhalation (Incruse Ellipta) mometasone-formoterol HFA 100 2 inh inhalation BID 02/23/24 02/23/24 History mcg-5 mcg/actuation aerosol inhaler (Dulera) insulin glargine 100 unit/mL (3 5 unit SQ HS 02/24/24 02/24/24 History mL) subcutaneous pen (Basaglar KwikPen U-100 Insulin) metoprolol succinate 50 mg 50 mg PO DAILY 02/24/24 02/24/24 History tablet,extended release 24 hr semaglutide 0.25 mg or 0.5 mg (2 0.25 mg SQ WEEKLY 02/24/24 02/24/24 History mg/3 mL) subcutaneous pen injector (Ozempic) aspirin 81 mg tablet,delayed 81 mg PO DAILY 30 days #30 tabs 02/26/24 Rx release atorvastatin 80 mg tablet 80 mg PO HS 30 days #30 tabs 02/26/24 Rx bumetanide 2 mg tablet 2 mg PO DAILY 30 days #45 tabs 02/26/24 Rx clopidogrel 75 mg tablet 30 mg (0.4 x 75 mg) PO DAILY 30 02/26/24 Rx days #12 tabs hydralazine 25 mg tablet 50 mg (2 x 25 mg) PO TID 30 days 02/26/24 Rx #180 tabs isosorbide dinitrate 10 mg tablet 20 mg (2 x 10 mg) PO TID 30 days 02/26/24 Rx #180 tabs New Prescriptions to Start Prescriptions: aspirin Erik, atorvastatin [place], bumetanide [place], clopidogrel [place], hydralazine [place], isosorbide dinitrate Erik, Allergies Allergy/AdvReac Type Severity Reaction Status Date / Time Penicillins Allergy Verified 04/11/23 14:42 Exam (Inpt) Constitutional: Present chronically ill appearing and disheveled Cardiac: Present posterior tibial pulses present and pedal pulses present (present but weak to right foot) Extremities: Present edema (RLE 2+ pitting) and other (LLE amputation) Skin: Present erythema (right cuevas) Comment:: Right toenails thickened, elongated with subungual debris. Right hallux is partially avulsed with proximal nail loose at the nailbed. Right hallux TNA performed. Mild bleeding noted controlled with compression. No deep open wound with exposed distal phalanx. Multiple small punched out round arterial lesions/ulcers noted to the right cuevas. WCx taken. Wounds ~2cm round, depth 0.2cm down to subq tissue. Lymphedema noted. Neuro: Present Numbness and Motor Function Intact; Absent Sensory Function Intact Comment:: Decreased light touch sensation with monofilament testing. Results Labs 02/28/24 05:44 02/28/24 05:44 Diagnostic results Ankle/Foot x-ray: report reviewed and image reviewed Assessment and Plan *Assessment and plan (1) Total avulsion of nail plate: Status: Acute Category: Medical (2) Onychodystrophy: Status: Acute Category: Medical Code(s): L60.3 - Nail dystrophy (3) Pain due to onychomycosis of nail: Status: Acute Category: Medical Code(s): B35.1 - Tinea unguium; M79.609 - Pain in unspecified limb (4) PVD (peripheral vascular disease) with claudication: Status: Acute Category: Medical Code(s): I73.9 - Peripheral vascular disease, unspecified (5) Lymphedema of right lower extremity: Status: Acute Category: Medical Code(s): I89.0 - Lymphedema, not elsewhere classified (6) Diabetic leg ulcer: Status: Acute Category: Medical Code(s): E11.622 - Type 2 diabetes mellitus with other skin ulcer; L97.909 - Non-pressure chronic ulcer of unspecified part of unspecified lower leg with unspecified severity Plan 02/27/24, 3v right foot x-ray FINDINGS: Bones/joints: No fracture or bone destruction. Soft tissues: Dorsal soft tissue swelling. Vasculature: Retic type vascular calcifications. IMPRESSION: 1. Dorsal soft tissue swelling. 2. No fracture or bone destruction. 3. Diabetic type vascular calcifications. 02/28/24, ABIs reviewed: low amplitude and TBI 0.74 low normal. ABIs within normal limits. Labs, 02/27/24, WBC 4.5 and 86, creatinine 3.60, GFR 18 glucose 123, protein 5.8 02/28/24, right leg WCx: pending -discussed DM mgmt -elongated thickened toenails x5 - debrided with nail nippers wo complications -discussed DFC, regular outpt follow up -discussed RLE edema, lympedema, PVD, arterial wounds vs venous leg ulcer - WCx taken, application of unna boot -remove unna boot in 5-7 days -rec outpt [facility] lymphedema follow up; will need appt scheduled RIGHT HALLUX TOTAL NAIL AVULSION: I discussed the condition and treatment options with the patient. We discussed removal of the entire nail due to pain and curvature in detail with the patient. Patient would like to go ahead with the procedure. No local anesthetic block or tourniquet utilized. The toe was prepped with Betadine. A hemostat were used to remove the entire right big toemail. There was hypertrophy and damage noted to the tissue under the nail. Some bleeding noted to nail bed. Light compression controlled bleeding. At this time antibiotic ointment, 4x4?s gauze, and vivi wrap was placed around the toe. Patient tolerated the procedure well without complication. We discussed the signs of infection. The patient verbalized understanding. The patient can take otc pain medication as needed and wbat. Podiatry Plan: -no plans for surgery -rec IV dose of Clinda x1 (s/p right hallux TNA). -rec oral Clinda 300mg TID x5-7d for early cellulitis. -remove RLE unna boot in 5-7 days. -remove right hallux toe dressing tomorrow and apply triple abx ointment, band-aide to great toe. -patient is to f/u with Podiatry in 2-3 weeks for right hallux TNA follow up. -will need follow up with [facility] Lymphedema for RLE. -patient should call the office if any questions or concerns arise.
[2024-02-28 07:11] LABS: POC Glucose,Bedside 90 (70-110)
[2024-02-28 07:20] LABS: Basophils % 0.8 % (0.1-2.0); Eosinophils # 0.2 K/mm3 (0.0-0.4); Eosinophils % 3.8 % (0.1-12.0); Hematocrit 34.1 % (42.0-52.0); Hemoglobin 10.9 g/dL (14.1-18.0); Lymphocytes # 0.8 K/mm3 (0.7-4.5); Lymphocytes % 19.8 % (10-50); Mean Corpuscular HGB Conc 31.9 g/dL (31.8-35.4); Mean Corpuscular Hemoglobin 26.8 pg (27.0-31.2); Mean Corpuscular Volume 84.3 fl (80-94); Mean Platelet Volume 9.1 fl (7.4-10.4); Monocytes # 0.4 K/mm3 (0.1-1.0); Neutrophils # 2.8 K/mm3 (1.8-7.8); Neutrophils % 66.5 % (37.0-80.0); Platelet Count 164 K/mm3 (142-424); Red Blood Count 4.05 M/mm3 (4.60-6.20); Red Cell Distribution Width 18.6 % (11.5-17.5); White Blood Count 4.2 K/mm3 (4.8-10.8)
[2024-02-28 07:51] LABS: Chloride 106 mmol/L (98-107)
[2024-02-28 07:52] LABS: Sodium 138 mmol/L (136-145)
[2024-02-28 07:54] LABS: Creatinine Clearance Estimated 28 mL/min (50-200); Estimated Glomerular Filt Rate 18 ml/min (>60); GFR (African American) 22 ML/MIN (>60)
[2024-02-28 07:55] LABS: Alanine Aminotransferase 14 U/L (12-78); Albumin/Globulin Ratio 1.3 (1.1-1.8); Alkaline Phosphatase 270 U/L (38-126); Aspartate Amino Transferase 35 U/L (17-59); Bilirubin,Total 1.1 mg/dl (0.2-1.3); Calcium 8.3 mg/dl (8.4-10.2); Carbon Dioxide 26 mmol/L (22.0-30.0); Globulin 2.4 g/dL (1.3-3.2); Glucose 81 mg/dl (74-100); Total Protein,Serum 5.4 g/dl (6.3-8.2)
[2024-02-28 08:03] LABS: Blood Urea Nitrogen 85 mg/dl (9-20)
[2024-02-28] MEDS: METOPROLOL SUCCINATE XL 50MG TABLET 50 MG PO (08:40)
[2024-02-28] MEDS: SODIUM BICARBONATE 650MG TABLET 650 MG PO ×3 (08:40→20:24)
[2024-02-28] MEDS: ISOSORBIDE DINITRATE 20 MG TABLET PO ×3 (08:40→20:24)
[2024-02-28] MEDS: ASPIRIN EC 81MG TABLET 81 MG PO (08:40)
[2024-02-28 08:41] LABS: NT Pro Brain Natriuretic Pep. 49200 pg/mL (0-125)
[2024-02-28] MEDS: HYDRALAZINE HCL 25MG TABLET 50 MG PO ×3 (08:41→20:25)
[2024-02-28] MEDS: FLUTICASONE/SALMETEROL 250/50MCG DISKUS 1 PUFF IH ×2 (08:41→18:34)
[2024-02-28] MEDS: BUMETANIDE 1MG/4ML VIAL 2 MG IV ×2 (08:41→16:17)
[2024-02-28] MEDS: CLOPIDOGREL 75MG TAB 75 MG PO (08:41)
[2024-02-28 08:53] LABS: Magnesium 2.1 mg/dl (1.6-2.3)
--- NOTE | 2024-02-28 09:13 | SW/DCPLANNER ---
Addendum entered by Louise Medley RN 03/02/24 12:52: [facility] has accepted patient. Addendum entered by Nupur Klein 03/02/24 11:49: I spoke w/ patient's son (Aguilar [phone]) whom stated he will transport patient home today. I will fax patient information/order to [facility]. Addendum entered by Nupur Klein 03/02/24 08:31: I spoke w/ patient this AM regarding discharge plans. Patient is still not interested in SNF level of care at time of discharge. Patient prefers to return home, continue to live by himself and is agreeable to home health services. I will follow up w/ patient again this AM after morning PT session. Discharge date is unknown at this time. Original Note: I spoke w/ this patient regarding plans once medically stable for discharge. PT/OT evaluated patient and recommended SNF level of care. Patient is adamant to return home at time of discharge and is not interested in placement. Patient stated that he has used home health services in the past and would be agreeable to services at time of discharge. Patient does not have a preference of home health agency. I will set up services once medically stable for discharge. Discharge date is unknown at this time. I will continue to follow up.
[2024-02-28 10:08] LABS: POC Glucose,Bedside 152 (70-110)
--- NOTE | 2024-02-28 11:45 | P.PN_ITS ---
Subjective *Date: 02/28/24 *Time: 16:19 Interval history: Appears chronically ill. Stable on 2 L. No chest pain or shortness of breath. Tolerating p.o. intake. Having response to increased diuretic regimen. Urine light yellow. Alert and oriented x 3. Again states he is disappointed is not going home today. Leg feeling a little better however. Edema marginally improved. Having good response to treatment. Cardiology seeing patient today. Medical Exam Vital signs and Labs for Last 24 Hours: Vital Signs Temp Pulse Pulse Resp BP Pulse Ox O2 Del Method 02/28/24 08:00 80 02/28/24 08:00 97.7 F 74 18 141/81 H 99 Room Air 02/28/24 07:00 Nasal Cannula 02/28/24 05:00 Nasal Cannula 02/28/24 04:00 97.9 F 78 16 139/88 99 Nasal Cannula 02/28/24 03:00 Nasal Cannula 02/28/24 00:52 Nasal Cannula 02/28/24 00:00 90 02/27/24 23:00 Nasal Cannula 02/27/24 22:59 Nasal Cannula 02/27/24 21:00 Nasal Cannula 02/27/24 20:00 97.7 F 80 18 152/86 H 100 Nasal Cannula 02/27/24 20:00 Nasal Cannula 02/27/24 20:00 80 02/27/24 16:11 Nasal Cannula 02/27/24 16:00 70 02/27/24 16:00 98 F 74 17 140/78 96 02/27/24 14:06 Nasal Cannula 02/27/24 12:32 Nasal Cannula 02/27/24 12:00 70 02/27/24 12:00 97.7 F 75 18 144/82 H 99 Nasal Cannula O2 Flow Rate 02/28/24 08:00 02/28/24 08:00 02/28/24 07:00 2 02/28/24 05:00 2 02/28/24 04:00 2 02/28/24 03:00 2 02/28/24 00:52 2 02/28/24 00:00 02/27/24 23:00 2 02/27/24 22:59 2 02/27/24 21:00 2 02/27/24 20:00 2 02/27/24 20:00 2 02/27/24 20:00 02/27/24 16:11 2 02/27/24 16:00 02/27/24 16:00 02/27/24 14:06 2 02/27/24 12:32 2 02/27/24 12:00 02/27/24 12:00 2 Intake and Output 02/27/24 02/28/24 02/28/24 23:59 07:59 15:59 Output Total 1225 / 2700 1050 / 1050 Balance -1225 / -1920 -1050 / -1050 Output: Output, Urine Amount 1225 / 2700 1050 / 1050 Other: Number of Unmeasured Voids 0 0 Weight 83.915 kg Patient Weight 02/28/24 23:59 Weight 83.915 kg Laboratory Results - last 24 hr 02/26/24 16:27: POC Glucose 152 H 02/27/24 15:58: POC Glucose 119 H 02/27/24 17:10: Sodium 138, Potassium 4.3, Chloride 108 H, Carbon Dioxide 22, Anion Gap 12.3, BUN 86 H, Creatinine 3.60 H, Estimated Creat Clear 27, Estimated GFR 18 L*, Est GFR ( Amer) 21 L, Glucose 123 H D, Calcium 7.9 L 02/27/24 20:13: POC Glucose 194 H 02/28/24 05:44: WBC 4.2 L, RBC 4.05 L, Hgb 10.9 L, Hct 34.1 L, MCV 84.3, MCH 26.8 L, MCHC 31.9, RDW 18.6 H, Plt Count 164, MPV 9.1, Neut % (Auto) 66.5, Lymph % (Auto) 19.8, [place] % (Auto) 9.0, Eos % (Auto) 3.8, Baso % (Auto) 0.8, Neut # (Auto) 2.8, Lymph # (Auto) 0.8, [place] # (Auto) 0.4, Eos # (Auto) 0.2, Baso # (Auto) 0.0, Sodium 138, Potassium 4.0, Chloride 106, Carbon Dioxide 26, Anion Gap 10.0, BUN 85 H, Creatinine 3.50 H, Estimated Creat Clear 28, Estimated GFR 18 L*, Est GFR ( Amer) 22 L, Glucose 81 D, Calcium 8.3 L, Magnesium 2.1, Total Bilirubin 1.1, AST 35, ALT 14, Alkaline Phosphatase 270 H, NT-Pro-B Natriuret Pep 30447 H, Total Protein 5.4 L, Albumin 3.0 L, Globulin 2.4, Albumin/Globulin Ratio 1.3 02/28/24 06:46: POC Glucose 90 I & O for Labs for Last 24 Hours: Intake & Output 02/25/24 02/26/24 02/27/24 02/28/24 23:59 23:59 23:59 23:59 Intake Total 930 / 930 1440 / 1440 780 / 780 Output Total 575 / 575 1550 / 1550 2700 / 2700 1050 / 1050 Balance 355 / 355 -110 / -110 -1920 / -1920 -1050 / -1050 Weight 86.818 kg 86.818 kg 83.915 kg 83.915 kg Microbiology Reports for the Last 24 Hours: Microbiology 02/28/24 07:49 Leg,Right - Wound Gram Stain - Final Constitutional: Present no acute distress and chronically ill appearing Head: Present atraumatic and normocephalic ENT: Present normal exam Neck: Present normal inspection Respiratory: Present prolonged expiratory phase, crackles (Bases bilateral) and diminished air movement; Absent rhonchi or wheezes Cardiac: Present Reg Rate and Rhythm GI: Present soft and normal bowel sounds; Absent distention or tenderness Extremities: Present normal inspection, full ROM and edema (Marginal improvement, 2+ to right knee. Stasis wounds but no weeping today) Comment:: Left AKA Skin: Present intact; Absent erythema Neuro: Present Grossly Intact and moves all extremities Assessment and Plan *Assessment and plan (1) HFrEF (heart failure with reduced ejection fraction): Status: Acute Category: Medical Code(s): I50.20 - Unspecified systolic (congestive) heart failure (2) Ischemic cardiomyopathy: Status: Acute Category: Medical Code(s): I25.5 - Ischemic cardiomyopathy (3) Peripheral arterial disease: Status: Acute Category: Medical Code(s): I73.9 - Peripheral vascular disease, unspecified (4) Hyperlipidemia: Status: Acute Qualifiers: Hyperlipidemia type: mixed hyperlipidemia Qualified Code(s): E78.2 - Mixed hyperlipidemia Category: Medical Code(s): E78.5 - Hyperlipidemia, unspecified (5) Diabetes mellitus: Status: Acute Qualifiers: Diabetes mellitus complication status: without complication Diabetes mellitus long term care administrator insulin use: with long term care administrator use Diabetes mellitus type: type 2 Qualified Code(s): E11.9 - Type 2 diabetes mellitus without complications; Z79.4 - superintendent terminal (current) use of insulin Category: Medical Code(s): E11.9 - Type 2 diabetes mellitus without complications (6) COPD (chronic obstructive pulmonary disease): Status: Acute Qualifiers: COPD type: chronic bronchitis Chronic bronchitis type: unspecified Qualified Code(s): J42 - Unspecified chronic bronchitis Category: Medical Code(s): J44.9 - Chronic obstructive pulmonary disease, unspecified (7) Hypertension: Status: Acute Qualifiers: Hypertension type: primary hypertension Qualified Code(s): I10 - Essential (primary) hypertension Category: Medical Code(s): I10 - Essential (primary) hypertension (8) Non-STEMI (non-ST elevated myocardial infarction): Status: Acute Category: Medical Code(s): I21.4 - Non-ST elevation (NSTEMI) myocardial infarction (9) CKD stage 4 due to type 2 diabetes mellitus: Status: Acute Category: Medical Code(s): E11.22 - Type 2 diabetes mellitus with diabetic chronic kidney disease; N18.4 - Chronic kidney disease, stage 4 (severe) Plan This is a 58-year-old male being admitted for acute on chronic CHF exacerbation. Condition complicated by his poorly controlled diabetes, peripheral vascular disease, CKD 4. Continues to require oxygen, wearing 1 to 2 L. Very poor response so far to diuresis. Continues to require inpatient management for increased aggressive diuresis. Close monitoring of kidney function and electrolytes. Having good response, -3.5 liters over the past 3 days. Problems addressed as follows: #Acute on chronic hypoxic respiratory failure HFrEF exacerbation NSTEMI type II CKD stage IV ? History of CAD status post 3 stents in March. ? Continue Bumex 2 mg IV twice daily. Having improved response. -1-1/2 L yesterday, 3.5 L in the past 3 days. Creatinine down to 3.5, BUN stable at 85. Repeat BMP ordered for this afternoon and CBC, CMP, magnesium ordered for the morning. Replacing electrolytes per protocol. Potassium 4.0 - Anticipate bump in kidney function while we aggressively diuresed, anticipate function will improve with better perfusion and improvement in volume status as he is making good urine. -Improvement metabolic acidosis, bicarb 26 today. Continue bicarb replacement with 650 mg p.o. 3 times a day ? BNP elevated at 79,000 on admission, improved to 39,000 02/24, repeat today of 49k - ECHO shows LVEF 20% with similar inferior akinesis as March this year, had been LVEF 30% earlier this. Patient does not want LifeVest at this time after extensively discussing risks and benefits. - Continue aspirin, Plavix 75 mg. ? Given patient's advanced CKD stage IV, unable to start NARESH/ARB/ARNI, MRA, or SGLT2i. - hydralazine 50 mg 3 times daily, Isordil to 20 mg 3 times daily after speaking to cardiology. #Physical deconditioning ? therapy recommended SNF. However, patient declines at this time. Plan to set up home health on discharge. Therapy working with patient daily. Type 2 diabetes Diabetic neuropathy -Hemoglobin A1c 7.8; glucose this morning 81 -Continue Lantus at 13 units nightly -SSI for additional glycemic control COPD -Not in acute exacerbation, on baseline oxygen requirements 1 to 2 L continuous -DuoNebs as needed, Continue Dulera -Maintain SpO2 greater than 90% HTN HLD -Continue statin, beta-stacy, hydralazine DVT prophylaxis: Heparin CODE STATUS: Full code Surrogate decision maker: Saurabh [phone] Lovenox 30 mg subcu daily
--- NOTE | 2024-02-28 12:22 | PC.NURSE ---
TECH NOTE; NURSE NOTIFIED OF BLOOD PRESSURE FOR 1200 VITAL SIGNS Marci THOMASON, SRNA
--- NOTE | 2024-02-28 16:05 | EXP.CARD.CON ---
History of Present Illness History of Present Illness Consult date: 02/28/24 Requesting physician: Gurinder Duke Consult reason: congestive heart failure Chief complaint: SOA Additional 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:: 1. CAD A. ANGELA to LAD, 03/2023, remaining large OM disease relegated to medical therapy 2. Ischemic cardiomyopathy A. EF 30%, 03/2023 B. EF 20%, 01/2024 3. Hyperlipidemia 4. Hypertension 5. History of ascending aortic aneurysm on echo 3.7 cm, 01/2024 6. Chronic kidney disease, stage 4 with baseline Cr around 2.9 with GFR 22 A. chronic anemia, Hgb around 10 7. COPD A. Former smoker 8. Diabetes mellitus 9. Status post Left AKA 10. Mixed valve disease, echo, 01/2024 A. Echo, 01/2024, EF 20%, grade 3 DD, moderate AAS/AI/MR with moderate to severe TR. RVSP 30-35 mmHg Echo, 02/25/2024 Severely dilated LV with severely reduced LV systolic function (LVEF 20%). Grade 3 diastolic dysfunction. The inferior LV wall is nearly akinetic. Severely dilated RV with moderate reduction in RV systolic function. Biatrial dilation. Moderately thickened AV leaflets. AV likely bicuspid (anatomic vs. functional) with fusion of the right and the non-coronary cusps. Moderate (MATEO by 2D planimetry and continuity equation is 1.2 cm2. Peak velocity 2.1 m/s. Mean AV gradient 10 mmHg. Max AV gradient 21 mmHg. The gradients are likely underestimated due to severely reduced LV systolic function). Moderate AI. Moderate MR. Moderate to severe TR. RVSP is 30-35 mmHg. The ascending aorta is borderline dilated, measuring 3.7 cm in diameter. Compared to prior TTEs from 04/06/2023 and 04/12/2023, the LV systolic/diastolic functions and valvulopathies are overall worse. History of present illness: 58 yo WM admitted for acute on chronic HFrEF. He has been diuresing on high dose bumex with slight improvement in his CKD. Edema and SOA have improved. Cardiology asked to see and evaluate for any help in treatment. Unable to use spironolactone or NARESH/ARB/Entresto due to CKD severity. Will consider adding Jardiance once patient is euvolemic. He is on metoprolol, isosorbide, aspirin and Plavix. In light of patient's continued ischemic cardiomyopathy with ejection fraction around 20% on tolerated goal-directed medical therapy with QRS duration of 124 ms with suspected cardiorenal syndrome, patient would be a candidate for biventricular ICD implantation which may possibly help his cardiac function and possibly improve his renal function as well. Patient has history of poor follow-up is to be considered prior to this. [facility] Disclaimer: The information contained in this section may have been updated after the patient was seen, as this information can be updated by other users. 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 Above knee amputation of left lower extremity Acute blood loss anemia Asthma Atypical angina CAD in [place] artery Congestive heart failure COPD (chronic obstructive pulmonary disease) Diabetes mellitus Diabetes mellitus, type 2 HFrEF (heart failure with reduced ejection fraction) History of left heart catheterization (LHC) Hyperlipidemia Hypertension Ischemic cardiomyopathy LV dysfunction Peripheral arterial disease Stenosis of carotid artery Thoracic aneurysm without mention of rupture Surgical History History of cholecystectomy Status post above-knee amputation of left lower extremity Stented coronary artery Family History Family history of cancer Social History (Updated 02/23/24 @ 19:22 by Juan Adams RN) Smoking Status: Former smoker tobacco type: cigarettes packs per day: 2 alcohol intake: never current occupational status: disabled Travel in the last 8 weeks: None housing: house current occupational exposures/hazards: No Review of Systems Review of Systems Review of systems:: pertinent systems reviewed and negative unless documented below *Cardiovascular Cardiovascular: Reports chest pain and Reports dyspnea *Respiratory Respiratory: Reports dyspnea Exam Data for Last 24 hours Vital signs and Labs for Last 24 Hours: Temp Pulse Resp BP Pulse Ox O2 Del Method O2 Flow Rate 97.7 F 79 20 146/95 H 99 Room Air 2 02/28/24 08:00 02/28/24 12:00 02/28/24 12:00 02/28/24 12:00 02/28/24 12:00 02/28/24 12:00 02/28/24 07:00 Laboratory Results - last 24 hr 02/26/24 16:27: POC Glucose 152 H 02/27/24 15:58: POC Glucose 119 H 02/27/24 17:10: Sodium 138, Potassium 4.3, Chloride 108 H, Carbon Dioxide 22, Anion Gap 12.3, BUN 86 H, Creatinine 3.60 H, Estimated Creat Clear 27, Estimated GFR 18 L*, Est GFR ( Amer) 21 L, Glucose 123 H D, Calcium 7.9 L 02/27/24 20:13: POC Glucose 194 H 02/28/24 05:44: WBC 4.2 L, RBC 4.05 L, Hgb 10.9 L, Hct 34.1 L, MCV 84.3, MCH 26.8 L, MCHC 31.9, RDW 18.6 H, Plt Count 164, MPV 9.1, Neut % (Auto) 66.5, Lymph % (Auto) 19.8, [place] % (Auto) 9.0, Eos % (Auto) 3.8, Baso % (Auto) 0.8, Neut # (Auto) 2.8, Lymph # (Auto) 0.8, [place] # (Auto) 0.4, Eos # (Auto) 0.2, Baso # (Auto) 0.0, Sodium 138, Potassium 4.0, Chloride 106, Carbon Dioxide 26, Anion Gap 10.0, BUN 85 H, Creatinine 3.50 H, Estimated Creat Clear 28, Estimated GFR 18 L*, Est GFR ( Amer) 22 L, Glucose 81 D, Calcium 8.3 L, Magnesium 2.1, Total Bilirubin 1.1, AST 35, ALT 14, Alkaline Phosphatase 270 H, NT-Pro-B Natriuret Pep 64433 H, Total Protein 5.4 L, Albumin 3.0 L, Globulin 2.4, Albumin/Globulin Ratio 1.3 02/28/24 06:46: POC Glucose 90 I & O for Last 24 hours: Intake & Output 02/26/24 02/27/24 02/28/24 02/29/24 11:59 11:59 11:59 11:59 Intake Total 1290 / 1290 1260 / 1260 450 / 450 Output Total 350 / 350 1900 / 1900 3825 / 4100 275 / 275 Balance 940 / 940 -640 / -640 -3375 / -3650 -275 / -275 Weight 191 lb 6.415 oz 185 lb 185 lb 0.014 oz 184 lb 15.838 oz Microbiology Reports for the Last 24 Hours: Microbiology 02/28/24 07:49 Leg,Right - Wound Gram Stain - Final Constitutional Constitutional: no acute distress *Routine Respiratory Exam Respiratory: Present rales; Absent rhonchi or wheezes *Routine Cardiovascular Exam Cardiovascular: Present RRR and murmur; Absent gallop or rubs *Routine Extremities Exam Extremities: Present edema Comments: Left lower extremity prosthesis. Meds Home Medications and Allergies Home Medications ?Medication ?Instructions ?Recorded ?Confirmed ?Type umeclidinium 62.5 mcg/actuation 1 inh inhalation DAILY 04/06/23 02/23/24 History blister powder for inhalation (Incruse Ellipta) mometasone-formoterol HFA 100 2 inh inhalation BID 02/23/24 02/23/24 History mcg-5 mcg/actuation aerosol inhaler (Dulera) insulin glargine 100 unit/mL (3 5 unit SQ HS 02/24/24 02/24/24 History mL) subcutaneous pen (Basaglar KwjosePen U-100 Insulin) metoprolol succinate 50 mg 50 mg PO DAILY 02/24/24 02/24/24 History tablet,extended release 24 hr semaglutide 0.25 mg or 0.5 mg (2 0.25 mg SQ WEEKLY 02/24/24 02/24/24 History mg/3 mL) subcutaneous pen injector (Ozempic) aspirin 81 mg tablet,delayed 81 mg PO DAILY 30 days #30 tabs 02/26/24 Rx release atorvastatin 80 mg tablet 80 mg PO HS 30 days #30 tabs 02/26/24 Rx bumetanide 2 mg tablet 2 mg PO DAILY 30 days #45 tabs 02/26/24 Rx clopidogrel 75 mg tablet 30 mg (0.4 x 75 mg) PO DAILY 30 02/26/24 Rx days #12 tabs hydralazine 25 mg tablet 50 mg (2 x 25 mg) PO TID 30 days 02/26/24 Rx #180 tabs isosorbide dinitrate 10 mg tablet 20 mg (2 x 10 mg) PO TID 30 days 02/26/24 Rx #180 tabs New Prescriptions to Start Prescriptions: aspirin [place], atorvastatin [place], bumetanide [place], clopidogrel [place], hydralazine [place], isosorbide dinitrate [place], Allergies Allergy/AdvReac Type Severity Reaction Status Date / Time Penicillins Allergy Verified 04/11/23 14:42 Assessment and Plan *Assessment and plan (1) HFrEF (heart failure with reduced ejection fraction): Status: Acute Category: Medical Code(s): I50.20 - Unspecified systolic (congestive) heart failure (2) Ischemic cardiomyopathy: Status: Acute Category: Medical Code(s): I25.5 - Ischemic cardiomyopathy (3) CKD stage 4 due to type 2 diabetes mellitus: Status: Acute Category: Medical Code(s): E11.22 - Type 2 diabetes mellitus with diabetic chronic kidney disease; N18.4 - Chronic kidney disease, stage 4 (severe) (4) COPD (chronic obstructive pulmonary disease): Status: Acute Qualifiers: COPD type: chronic bronchitis Chronic bronchitis type: unspecified Qualified Code(s): J42 - Unspecified chronic bronchitis Category: Medical Code(s): J44.9 - Chronic obstructive pulmonary disease, unspecified (5) Diabetes mellitus: Status: Acute Qualifiers: Diabetes mellitus type: type 2 Diabetes mellitus jail insulin use: with intermediate frame tender use Diabetes mellitus complication status: without complication Qualified Code(s): E11.9 - Type 2 diabetes mellitus without complications; Z79.4 - jail (current) use of insulin Category: Medical Code(s): E11.9 - Type 2 diabetes mellitus without complications (6) Aortic stenosis, moderate: Status: Acute Category: Medical Code(s): I35.0 - Nonrheumatic aortic (valve) stenosis Plan 1. Acute on chronic HFrEF with possible cardiorenal syndrome -BNP is 49,000 -continue IV bumex -consider BiV ICD this admission -Unable to add NARESH/ARB/Entresto or spironolactone due to CKD -Consider Jardiance once euvolemic -echo, 02/25/2024, EF 20% 2. CKD, stage IV -Continue to monitor 3. COPD -RVSP 30-35 mm Hg on echo this admission 4. Diabetes mellitus -on insulin -Hgb A1C is 7.8 last month 5. History of borderline ascending aortic aneurysm, 3.7 cm, on echo this admission -follow up echo in 3-6 months. 6. Chronic mild anemia with hemoglobin around 10-11 7. CAD -elevated troponins (0.29 max) Possibly due to CKD but need to consider repeat cardiac cath -Continue metoprolol and Isordil along with aspirin and Plavix 8. Aortic stenosis, moderate, 01/2024, possibly underestimated due to cardiomyopathy 9. Mitral regurgitation, moderate, 01/2024 echo Continue aggressive diuresis Cardiac cath prior to discharge BiV AICD implantation prior to discharge
[2024-02-28 16:17] LABS: POC Glucose,Bedside 214 (70-110)
[2024-02-28] MEDS: ARTIFICIAL TEARS SOLN 15ML BOTTLE OP ×2 (16:17→20:25)
[2024-02-28] MEDS: humaLOG 100 UNITS/ML 10ML VIAL (SSI) SUBCUT ×2 (16:17→20:51)
--- NOTE | 2024-02-28 18:05 | PC.NURSE ---
Patient continues to tolerate diuresing. Patient has had good uop. Patient has occasions of noncompliance with care but can have the importance explained and will sometimes allow RN to follow through with plan of care.
[2024-02-28] MEDS: ATORVASTATIN 40MG TABLET 80 MG PO (20:24)
[2024-02-28] MEDS: MELATONIN 5MG TABLET 5 MG PO (20:25)
[2024-02-28] MEDS: INSULIN GLARGINE 100 UNITS/ML 3ML FLEXPEN 10 UNIT SUBCUT (20:50)
[2024-02-29] VITALS (10 sets, daily range): BP systolic 132–149; BP diastolic 79–94; PULSE 68–90; RESP 16–20; TEMP 35.9–36.8; O2SAT 96–100; BMI 26.9
[2024-02-29] MEDS: diphenhydrAMINE 25MG CAPSULE 25 MG PO (02:07)
[2024-02-29 03:20] LABS: POC Glucose,Bedside 185 (70-110)
--- NOTE | 2024-02-29 04:10 | PC.NURSE ---
02/29/24 Pt. is alert and orientated x 4. Pt. is miserable this shift. He c/o feeling tired but unable to sleep. Pt was given Scheduled dose of Melatonin (5 mg) PO, than a PRN dose of Melatonin (10 m) still unable to sleep. Kg Camilo APRN was contacted and he ordered Benadryl 25 mg PO. Pt. continues to sit up on side of bed c/o unable to sleep and feels short of breath. Lung sounds clear, O2 1 liter per NC in place O2 sat 100%. Pt O2 bumped up to 2 liters. Pt. weight yesterday was 83.9 kg and today it is 90.12Kg. Pt is wearing his prostatic leg today and previous wieghts he did not have the prothesis in plac.e Pt. refuses to remove leg at this time for a true weight. Pt. is on fluid restrictions 1500 ml /day. vital signs stable . personal items and call reyes in reach.
[2024-02-29 05:58] LABS: Basophils % 0.5 % (0.1-2.0); Eosinophils # 0.2 K/mm3 (0.0-0.4); Eosinophils % 2.8 % (0.1-12.0); Hematocrit 35.7 % (42.0-52.0); Hemoglobin 11.5 g/dL (14.1-18.0); Lymphocytes % 19.1 % (10-50); Mean Corpuscular HGB Conc 32.3 g/dL (31.8-35.4); Mean Corpuscular Hemoglobin 26.7 pg (27.0-31.2); Mean Corpuscular Volume 82.8 fl (80-94); Mean Platelet Volume 9.3 fl (7.4-10.4); Monocytes # 0.5 K/mm3 (0.1-1.0); Monocytes % 8.8 % (1.7-9.3); Neutrophils # 3.6 K/mm3 (1.8-7.8); Neutrophils % 68.8 % (37.0-80.0); Platelet Count 176 K/mm3 (142-424); Red Blood Count 4.31 M/mm3 (4.60-6.20); Red Cell Distribution Width 18.5 % (11.5-17.5); White Blood Count 5.2 K/mm3 (4.8-10.8)
[2024-02-29 06:08] LABS: Albumin Level 3.4 g/dl (3.5-5.0); Chloride 104 mmol/L (98-107); Potassium 3.9 mmoL/L (3.5-5.1); Sodium 139 mmol/L (136-145)
[2024-02-29 06:11] LABS: Alanine Aminotransferase 17 U/L (12-78); Albumin/Globulin Ratio 1.2 (1.1-1.8); Alkaline Phosphatase 295 U/L (38-126); Anion Gap 12.9 mEq/L (5-15); Aspartate Amino Transferase 37 U/L (17-59); Bilirubin,Total 1.4 mg/dl (0.2-1.3); Blood Urea Nitrogen 77 mg/dl (9-20); Calcium 8.4 mg/dl (8.4-10.2); Carbon Dioxide 26 mmol/L (22.0-30.0); Creatinine Clearance Estimated 29 mL/min (50-200); Estimated Glomerular Filt Rate 18 ml/min (>60); GFR (African American) 21 ML/MIN (>60); Globulin 2.8 g/dL (1.3-3.2); Glucose 127 mg/dl (74-100); Total Protein,Serum 6.2 g/dl (6.3-8.2)
[2024-02-29] MEDS: FLUTICASONE/SALMETEROL 250/50MCG DISKUS 1 PUFF IH ×2 (06:15→18:31)
[2024-02-29 06:33] LABS: Magnesium 2.2 mg/dl (1.6-2.3)
[2024-02-29 06:36] LABS: POC Glucose,Bedside 122 (70-110)
[2024-02-29] MEDS: BUMETANIDE 1MG/4ML VIAL 2 MG IV ×2 (11:51→16:56)
[2024-02-29] MEDS: ISOSORBIDE DINITRATE 20 MG TABLET PO ×2 (11:52→20:21)
[2024-02-29] MEDS: HYDRALAZINE HCL 25MG TABLET 50 MG PO ×2 (11:52→20:20)
[2024-02-29] MEDS: METOPROLOL SUCCINATE XL 50MG TABLET 50 MG PO (11:52)
[2024-02-29] MEDS: CLOPIDOGREL 75MG TAB 75 MG PO (11:52)
[2024-02-29] MEDS: ASPIRIN EC 81MG TABLET 81 MG PO (11:52)
--- NOTE | 2024-02-29 11:58 | P.PN_ITS ---
Subjective Subjective Date: 02/29/24 Time: 11:58 Principal diagnosis: CHF Interval history: 58-year-old white male in bed in no acute distress but does relate some shortness of breath. This is not new and is slowly improving during this hos pitalization. I discussed with the patient the recommendation for a biventricular ICD in light of his continued severe left ventricular cardiomyopathy as well as his recurrent heart failure admissions and his wide QRS complex. Patient seems to understand the recommendation and does agree to proceed with BiV ICD implantation tomorrow. Exam Data for Last 24 hours Vital signs and Labs for Last 24 Hours: Temp Pulse Resp BP Pulse Ox O2 Del Method O2 Flow Rate 98 F 72 17 135/87 100 Nasal Cannula 2 02/29/24 11:52 02/29/24 11:52 02/29/24 11:52 02/29/24 11:52 02/29/24 11:52 02/29/24 11:52 02/29/24 06:59 Laboratory Results - last 24 hr 02/28/24 16:08: POC Glucose 214 H 02/28/24 17:53: Sodium 134 L, Potassium 3.6, Chloride 97 L, Carbon Dioxide 32 H, Anion Gap 8.6, BUN 16 D, Creatinine 0.80 D, Estimated Creat Clear 122, Estimated GFR 100, Est GFR ( Amer) 121 D, Glucose 94, Calcium 9.0 02/28/24 20:43: POC Glucose 185 H 02/29/24 05:39: WBC 5.2, RBC 4.31 L, Hgb 11.5 L, Hct 35.7 L, MCV 82.8, MCH 26.7 L, MCHC 32.3, RDW 18.5 H, Plt Count 176, MPV 9.3, Neut % (Auto) 68.8, Lymph % (Auto) 19.1, [place] % (Auto) 8.8, Eos % (Auto) 2.8, Baso % (Auto) 0.5, Neut # (Auto) 3.6, Lymph # (Auto) 1.0, [place] # (Auto) 0.5, Eos # (Auto) 0.2, Baso # (Auto) 0.0, Sodium 139, Potassium 3.9, Chloride 104, Carbon Dioxide 26, Anion Gap 12.9, BUN 77 H D, Creatinine 3.60 H D, Estimated Creat Clear 29, Estimated GFR 18 L*, Est GFR ( Amer) 21 L D, Glucose 127 H D, Calcium 8.4, Magnesium 2.2, Total Bilirubin 1.4 H, AST 37, ALT 17, Alkaline Phosphatase 295 H , Total Protein 6.2 L, Albumin 3.4 L D, Globulin 2.8, Albumin/Globulin Ratio 1.2 02/29/24 06:13: POC Glucose 122 H I & O for Last 24 hours: Intake & Output 02/26/24 02/27/24 02/28/24 02/29/24 11:59 11:59 11:59 11:59 Intake Total 1290 / 1290 1260 / 1260 450 / 450 2422 / 2422 Output Total 350 / 350 1900 / 1900 3825 / 4100 6400 / 6400 Balance 940 / 940 -640 / -640 -3375 / -3650 -3978 / -3978 Weight 191 lb 6.415 oz 185 lb 185 lb 0.014 oz 198 lb 11.2 oz Microbiology Reports for the Last 24 Hours: Microbiology 02/28/24 07:49 Leg,Right - Wound Gram Stain - Final 02/28/24 07:49 Leg,Right - Wound Wound Culture - Preliminary Constitutional Constitutional: mild distress *Routine Respiratory Exam Respiratory: Present rhonchi; Absent wheezes *Routine Cardiovascular Exam Cardiovascular: Present RRR *Routine Extremities Exam Extremities: Absent edema Progress Note: A&P Assessment and plan (1) HFrEF (heart failure with reduced ejection fraction): Status: Acute (2) Ischemic cardiomyopathy: Status: Acute (3) CKD stage 4 due to type 2 diabetes mellitus: Status: Acute (4) COPD (chronic obstructive pulmonary disease): Status: Acute (5) Diabetes mellitus: Status: Acute (6) Aortic stenosis, moderate: Status: Acute Assessment and Plan Assessment and Plan for All Diagnoses:: 1. Acute on chronic HFrEF with possible cardiorenal syndrome -BNP is 49,000 -continue IV bumex -plan for BiV AICD on 03/01/2024 -Unable to add NARESH/ARB/Entresto or spironolactone due to CKD -Consider Jardiance once euvolemic -echo, 02/25/2024, EF 20% 2. CKD, stage IV -Continue to monitor 3. COPD -RVSP 30-35 mm Hg on echo this admission 4. Diabetes mellitus -on insulin -Hgb A1C is 7.8 last month 5. History of borderline ascending aortic aneurysm, 3.7 cm, on echo this admission -follow up echo in 3-6 months. 6. Chronic mild anemia with hemoglobin around 10-11 7. CAD -elevated troponins (0.29 max) without new wall motion abnormalities on echo. Likely due to CKD -Continue metoprolol and Isordil along with aspirin and Plavix 8. Aortic stenosis, moderate, 01/2024, possibly underestimated due to cardiomyopathy 9. Mitral regurgitation, moderate, 01/2024 echo Proceed with BiV AICD on 03/01/2024 due to severe LV dysfunction with wide QRS on EKG and recurrent congestive heart failure despite GDMT (limited due to stage IV CKD). Hold off on cardiac catheterization at this time. Continue diuresis
--- NOTE | 2024-02-29 18:14 | EXP.PN ---
Subjective *Date: 03/01/24 *Time: 18:15 Exam Data for Last 24 hours Vital signs and Labs for Last 24 Hours: Temp Pulse Resp BP Pulse Ox O2 Del Method O2 Flow Rate 98 F 70 17 132/80 96 Nasal Cannula 2 02/29/24 16:00 02/29/24 16:00 02/29/24 16:00 02/29/24 16:00 02/29/24 16:00 02/29/24 16:00 02/29/24 06:59 Laboratory Results - last 24 hr 02/28/24 20:43: POC Glucose 185 H 02/29/24 05:39: WBC 5.2, RBC 4.31 L, Hgb 11.5 L, Hct 35.7 L, MCV 82.8, MCH 26.7 L, MCHC 32.3, RDW 18.5 H, Plt Count 176, MPV 9.3, Neut % (Auto) 68.8, Lymph % (Auto) 19.1, Meriwether % (Auto) 8.8, Eos % (Auto) 2.8, Baso % (Auto) 0.5, Neut # (Auto) 3.6, Lymph # (Auto) 1.0, Meriwether # (Auto) 0.5, Eos # (Auto) 0.2, Baso # (Auto) 0.0, Sodium 139, Potassium 3.9, Chloride 104, Carbon Dioxide 26, Anion Gap 12.9, BUN 77 H D, Creatinine 3.60 H D, Estimated Creat Clear 29, Estimated GFR 18 L*, Est GFR ( Amer) 21 L D, Glucose 127 H D, Calcium 8.4, Magnesium 2.2, Total Bilirubin 1.4 H, AST 37, ALT 17, Alkaline Phosphatase 295 H, Total Protein 6.2 L, Albumin 3.4 L D, Globulin 2.8, Albumin/Globulin Ratio 1.2 02/29/24 06:13: POC Glucose 122 H I & O for Last 24 hours: Intake & Output 02/26/24 02/27/24 02/28/24 02/29/24 23:59 23:59 23:59 23:59 Intake Total 1440 / 1440 780 / 780 1050 / 2512 1942 / 1942 Output Total 1550 / 1550 2700 / 2700 5365 / 7590 5499 / 4575 Balance -110 / -110 -1920 / -1920 -2725 / -5163 -2633 / -2633 Weight 86.818 kg 83.915 kg 83.91 kg 90.129 kg Microbiology Reports for the Last 24 Hours: Microbiology 02/28/24 07:49 Leg,Right - Wound Gram Stain - Final 02/28/24 07:49 Leg,Right - Wound Wound Culture - Preliminary Constitutional Constitutional: no acute distress *Routine HEENT Exam Head: Present normocephalic Eye: Present EOMI and PERRL ENT: Present mucous membranes moist *Routine Neck Exam Neck: Present supple; Absent lymphadenopathy *Routine Respiratory Exam Respiratory: Present CTA bilaterally *Routine Cardiovascular Exam Cardiovascular: Present RRR *Routine Abdominal Exam Abdominal: Present soft and normoactive bowel sounds; Absent tenderness *Routine Extremities Exam Extremities: Absent cyanosis, clubbing or edema Comments: Right lower extremity pitting edema 2+. Chronic venous stasis changes Left AKA. *Routine Skin Exam Skin: Present warm; Absent rash *Routine Neurological Exam Neurological: Present alert and oriented X3 Assessment and Plan *Assessment and plan (1) HFrEF (heart failure with reduced ejection fraction): Status: Acute Category: Medical Code(s): I50.20 - Unspecified systolic (congestive) heart failure (2) Ischemic cardiomyopathy: Status: Acute Category: Medical Code(s): I25.5 - Ischemic cardiomyopathy (3) Peripheral arterial disease: Status: Acute Category: Medical Code(s): I73.9 - Peripheral vascular disease, unspecified (4) Hyperlipidemia: Status: Acute Qualifiers: Hyperlipidemia type: mixed hyperlipidemia Qualified Code(s): E78.2 - Mixed hyperlipidemia Category: Medical Code(s): E78.5 - Hyperlipidemia, unspecified (5) Diabetes mellitus: Status: Acute Qualifiers: Diabetes mellitus complication status: without complication Diabetes mellitus mcc insulin use: with mcc use Diabetes mellitus type: type 2 Qualified Code(s): E11.9 - Type 2 diabetes mellitus without complications; 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 Category: Medical Code(s): E11.9 - Type 2 diabetes mellitus without complications (6) COPD (chronic obstructive pulmonary disease): Status: Acute Qualifiers: COPD type: chronic bronchitis Chronic bronchitis type: unspecified Qualified Code(s): J42 - Unspecified chronic bronchitis Category: Medical Code(s): J44.9 - Chronic obstructive pulmonary disease, unspecified (7) Hypertension: Status: Acute Qualifiers: Hypertension type: primary hypertension Qualified Code(s): I10 - Essential (primary) hypertension Category: Medical Code(s): I10 - Essential (primary) hypertension (8) Non-STEMI (non-ST elevated myocardial infarction): Status: Acute Category: Medical Code(s): I21.4 - Non-ST elevation (NSTEMI) myocardial infarction (9) CKD stage 4 due to type 2 diabetes mellitus: Status: Acute Category: Medical Code(s): E11.22 - Type 2 diabetes mellitus with diabetic chronic kidney disease; N18.4 - Chronic kidney disease, stage 4 (severe) Plan This is a 58-year-old male being admitted for acute on chronic CHF exacerbation. Condition complicated by his poorly controlled diabetes, peripheral vascular disease, CKD 4. Continues to require oxygen, wearing 1 to 2 L. Very poor response so far to diuresis. Continues to require inpatient management for increased aggressive diuresis. Close monitoring of kidney function and electrolytes. Having good response, -3.5 liters over the past 3 days. Problems addressed as follows: #Acute on chronic hypoxic respiratory failure HFrEF exacerbation NSTEMI type II CKD stage IV ? History of CAD status post 3 stents in March. ? Continue Bumex 2 mg IV twice daily. Having improved response. -1-1/2 L yesterday, 3.5 L in the past 3 days. Creatinine down to 3.5, BUN stable at 85. Repeat BMP ordered for this afternoon and CBC, CMP, magnesium ordered for the morning. Replacing electrolytes per protocol. Potassium 4.0 - Anticipate bump in kidney function while we aggressively diuresed, anticipate function will improve with better perfusion and improvement in volume status as he is making good urine. -Improvement metabolic acidosis, bicarb 26 today. Continue bicarb replacement with 650 mg p.o. 3 times a day ? BNP elevated at 79,000 on admission, improved to 39,000 02/24, repeat today of 49k - ECHO shows LVEF 20% with similar inferior akinesis as March this year, had been LVEF 30% earlier this. Patient does not want LifeVest at this time after extensively discussing risks and benefits. - Continue aspirin, Plavix 75 mg. ? Given patient's advanced CKD stage IV, unable to start NARESH/ARB/ARNI, MRA, or SGLT2i. - hydralazine 50 mg 3 times daily, Isordil to 20 mg 3 times daily after speaking to cardiology. ?Cardiology planning to place biventricular ICD tomorrow, n.p.o. at midnight. #Physical deconditioning ? therapy recommended SNF. However, patient declines at this time. Plan to set up home health on discharge. Therapy working with patient daily. Type 2 diabetes Diabetic neuropathy -Hemoglobin A1c 7.8; glucose this morning 81 -Continue Lantus at 13 units nightly -SSI for additional glycemic control COPD -Not in acute exacerbation, on baseline oxygen requirements 1 to 2 L continuous -DuoNebs as needed, Continue Dulera -Maintain SpO2 greater than 90% HTN HLD -Continue statin, beta-stacy, hydralazine DVT prophylaxis: Heparin CODE STATUS: Full code Surrogate decision maker: Saurabh [phone] Lovenox 30 mg subcu daily
--- NOTE | 2024-02-29 20:13 | PC.NURSE ---
Patient has refused his fingerstick blood glucose check at this time (for 21:00). Leslee HOLLAND was paged to inform him of the refusal. He stated to hold off on insulin coverage (glargine and lispro) at this time, and he will come back to the floor soon after admissions.
--- NOTE | 2024-02-29 20:15 | EXP.EVENT.NO ---
20:00 nurse notified me that patient is refusing all fingerstick, has been doing this all day, will hold insulin at the present time.
[2024-02-29] MEDS: ATORVASTATIN 40MG TABLET 80 MG PO (20:20)
[2024-02-29] MEDS: TRAZODONE 50MG TABLET 50 MG PO (20:21)
[2024-02-29] MEDS: SODIUM BICARBONATE 650MG TABLET 650 MG PO (20:21)
--- NOTE | 2024-02-29 21:58 | PC.NURSE ---
At this time, the patient was grimacing and reported having burning, numbness, and sharp pain in his right lower extremity. He requested for a gabapentin order. Patient stated that he takes gabapentin three times a day for his neuropathy at home. A gabapentin order is not in the MAR at this time. Leslee HOLLAND was paged to inform him about the patient's current neuropathic pain and for any new interventions. Leslee HOLLAND stated that he will put in a one time dose for gabapentin 600 mg PO, and he will pass this information along to the oncoming provider in the morning, due to finding out about previous gabapentin order cancelations during this patient's hospitalization.
--- NOTE | 2024-02-29 22:02 | EXP.EVENT.NO ---
2199 patient was complaining about his leg burning. Stated he takes gabapentin at home., I was seen where it was held on 23 February but could not find the note or reason why.. Will give 1 dose tonight, and discussed with daytime provider as to whether it should be continued.,
[2024-02-29] MEDS: GABAPENTIN 600MG TABLET 600 MG PO (22:05)
[2024-03-01] VITALS (19 sets, daily range): BP systolic 118–149; BP diastolic 67–97; PULSE 60–80; RESP 16–18; TEMP 36.3–36.7; O2SAT 93–100; BMI 26.9
--- NOTE | 2024-03-01 | IR_ITS ---
APPROVED REPORT Patient Location: Inpatient Certified Ophthalmic Assistant: SHARRI Prado RT (R) PROCEDURES 1. Pocket formation for biventricular pacemaker generator with cardiac resynchronization/defibrillator therapy. 2. Placement of atrial sensing and pacing lead into the right atrial appendage. 3. Placement of a right ventricular sensing, pacing and shocking lead in the right ventricular apex. 4. Placement of left ventricular sensing pacing lead via the coronary sinus. 5. Permanent cardiac resynchronization therapy with ICD implantation/biventricular pacemaker. INDICATION Systolic Congestive Heart Failure, ejection fraction 20%, Wide QRS >120ms, [place] Heart Assoication Class 3 Congestive Heart Failure Informed consent was obtained prior to the procedure. COMPLICATIONS None Estimated Blood Loss: Less than 10 mls TECHNIQUE 1% Lidocaine with epinephrine used to anesthetized the left anterior aspect of the chest. Scalpel was used to make the initial cutaneous incision while electrocautery was used to dissect down tinto the fascia. The fascia was lifted off the pectoralis muscle and digitally manipulated creating a pocket for the defibrillator. The patient was then placed in Trendelenburg position and the subclavian vein was accessed 3 times via the Selinger technique. A 8 Hebrew sheath was placed under fluoroscopic guidance into the subclavian vein. The dilator was removed from the sheath. Using fluoroscopic guidance, the ventricular lead was placed into the right ventricular apex, screwed and secured into place. Electronic interrogation proved acceptable thresholds and voltage within the lead. Using 3-0 silk, the ventricular lead was then secured into place and sheath peeled away. Following this, a 9.5 Hebrew sheath and dilator was then placed over one of the wires while keeping the other wire in place within the subclavian vein. The dilator was removed from the sheath. Using fluoroscopic guidance, contrast was used to visualize the coronary sinus, the left ventricular lead was placed into the coronary sinus. Electronic interrogation proved acceptable thresholds and voltage within the lead. Using 3-0 silk, the left ventricular lead was then secured into place and sheath peeled away.An additional 6 Hebrew fresh sheath and dilator was placed over the existing wire. Using fluoroscopic guidance, the atrial lead was then placed into the right atrial appendage and screwed and secured in place. Electrical interrogation demonstrated acceptable thresholds and voltage number. The atrial lead was then secured into place using 3-0 silk and sheath peeled away. 1 gram of Ancef was used to flush the pocket. All 3 leads were connected to generator and tested via computer. The defibrillator then secured to the fascia. Monocryl was used to close the subcutaneous layers while santos were used to close the cutaneous layer. A pressure dressing was placed and the patient was transferred to the postop holding area in stable condition for postoperative care. INTERROGATION Generator Model number: [employer] HF [id number] Generator Serial number: [id number] Atrial lead model number: Tendril STS [id number] Atrial lead serial number: [id number] P-wave: 3.0 mV Impedance: 490 Ohms Threshold: 1.0mV @ 0.5 ms Right Ventricular lead model number: [employer] [id number] Right Ventricular lead serial number: [id number] R-wave: 8.5 mV Impedance: 490 Ohms Threshold: 0.375V @ 0.5ms High Voltage Impedance: 29 Ohms Left Ventricular lead model number: Quartet [id number] Left Ventricular lead serial number: [id number] R-wave: Impedance: 730 Ohms Threshold: 0.625V @ 0.5mV Pacing Parameters: Mode: DDDR Base/Max Track: 60 ppm / 130 ppm No diaphragmatic stimulation at 10 volts. IMPRESSION 1. Successful Pocket formation for biventricular pacemaker generator with cardiac resynchronization/defibrillator therapy. 2. Successful placement of right atrial sensing and pacing lead into the right atrial appendage. 3. Successful placement of a right ventricular sensing, pacing and shocking lead in the right ventricular apex. 4. Successful placement of left ventricular sensing pacing lead via the coronary sinus. 5. Successful permanent cardiac resynchronization plus AICD generator device. PLAN 1. Follow up office visit, post op wound care. Electronically signed by : Robert Mcfadden MD 03/02/2024 11:50:37
--- NOTE | 2024-03-01 05:03 | PC.NURSE ---
I entered the patient's room at this time to check on him, and he was found sitting up on the side of the bed. Patient was swaying with eyes closed and respirations were even. I asked the patient if anything was wrong, and he stated that he was not feeling well and reported shortness of breath and sweating. Patient is currently on 2 L of oxygen via nasal cannula. He requested for a breathing treatment; respiratory was paged. Vital signs were taken and documented accordingly for this time (see vital sign assessment).
--- NOTE | 2024-03-01 05:17 | PC.NURSE ---
Patient is alert and oriented x4. Patient was observed to have eyes closed, respirations even and unlabored on 2 L of oxygen via nasal cannula, and no apparent distress throughout the shift. However, the patient did report this morning that he did not have efficient sleep during the night. Patient was found to have occasional myoclonic jerks in his sleep during hourly checks. Patient has been using the urinal at bedside; urine output has been emptied and documented accordingly. Patient has significant pitting edema in his right lower extremity; it remains dressed with NARESH wrap/coban. He was given a one time dose of gabapentin for neuropathic pain this shift (see prior note). He has a left BKA with a prosthetic leg in place. Upon auscultation, patient's lung sounds were clear, S1/S2 heart sounds could be heard, and bowel sounds were active. He has been running normal sinus rhythm on telemetry this shift. Scattered bruising was noticed on the patient's lower abdomen. He was given his scheduled medications, including first dose of trazedone per MAR (excluding glargine insulin). Patient has refused blood glucose fingersticks and insulin coverage this shift. He has been NPO since midnight; prior to current NPO status, patient was on a 1500 mL fluid restriction and a diabetic diet. Patient did not exceed 1500 mL (1284 mL including day/night for 02/29/24) and was given a chicken salad sandwich with a Diet Pepsi for a bedtime snack. Vital signs have been stable this shift. At this time, the patient is sitting up in bed. He does not have any further complaints (however, see prior note). Call light within reach.
[2024-03-01] MEDS: FLUTICASONE/SALMETEROL 250/50MCG DISKUS 1 PUFF IH ×2 (05:44→18:37)
[2024-03-01 08:13] LABS: Albumin Level 3.5 g/dl (3.5-5.0); Chloride 103 mmol/L (98-107); Potassium 3.8 mmoL/L (3.5-5.1); Sodium 139 mmol/L (136-145)
[2024-03-01 08:16] LABS: Alanine Aminotransferase 18 U/L (12-78); Albumin/Globulin Ratio 1.3 (1.1-1.8); Alkaline Phosphatase 307 U/L (38-126); Anion Gap 8.8 mEq/L (5-15); Aspartate Amino Transferase 43 U/L (17-59); Bilirubin,Total 1.3 mg/dl (0.2-1.3); Blood Urea Nitrogen 78 mg/dl (9-20); Calcium 8.5 mg/dl (8.4-10.2); Carbon Dioxide 31 mmol/L (22.0-30.0); Creatinine Clearance Estimated 30 mL/min (50-200); Estimated Glomerular Filt Rate 18 ml/min (>60); GFR (African American) 22 ML/MIN (>60); Globulin 2.7 g/dL (1.3-3.2); Glucose 157 mg/dl (74-100); Total Protein,Serum 6.2 g/dl (6.3-8.2)
[2024-03-01] MEDS: BUMETANIDE 1MG/4ML VIAL 2 MG IV (08:31)
[2024-03-01] MEDS: ISOSORBIDE DINITRATE 20 MG TABLET PO ×3 (08:32→21:00)
[2024-03-01] MEDS: METOPROLOL SUCCINATE XL 50MG TABLET 50 MG PO (08:32)
[2024-03-01] MEDS: SODIUM BICARBONATE 650MG TABLET 650 MG PO ×3 (08:32→21:00)
[2024-03-01] MEDS: HYDRALAZINE HCL 25MG TABLET 50 MG PO ×3 (08:33→21:01)
[2024-03-01 09:22] LABS: NT Pro Brain Natriuretic Pep. 64900 pg/mL (0-125)
--- NOTE | 2024-03-01 10:21 | P.PNANES_ITS ---
[facility] Disclaimer: The information contained in this section may have been updated after the patient was seen, as this information can be updated by other users. 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 Above knee amputation of left lower extremity Acute blood loss anemia Asthma Atypical angina CAD in [place] artery Congestive heart failure COPD (chronic obstructive pulmonary disease) Diabetes mellitus Diabetes mellitus, type 2 HFrEF (heart failure with reduced ejection fraction) History of left heart catheterization (LHC) Hyperlipidemia Hypertension Ischemic cardiomyopathy LV dysfunction Peripheral arterial disease Stenosis of carotid artery Thoracic aneurysm without mention of rupture Surgical History History of cholecystectomy Status post above-knee amputation of left lower extremity Stented coronary artery Family History Family history of cancer Social History (Updated 02/23/24 @ 19:22 by Juan Adams RN) Smoking Status: Former smoker tobacco type: cigarettes packs per day: 2 alcohol intake: never substance use type: denies use current occupational status: disabled Travel in the last 8 weeks: None housing: house current occupational exposures/hazards: No [facility] Anesthesia Checklist Patient Identification Patient Identification: Arm Band Structural Data Admitted From: Home Planned Operative Procedure/s: Biventricular AICD Consent for Planned Operative Procedure(s) Verified: Yes Verified Documents: Surgical Consent and History and Physical NPO Status Verified Time NPO: 00:00 Additional verifications Anesthesia Reactions: No Airway Assessment Mallampati Score:: Class II C-Spine Mobility Assessed: Yes TMJ Mobility Assessed: Yes Dentition: Edentulous Neurological Assessment Level of Consciousness: Awake, Alert and Appropriate Anesthesia Plan Anesthesia Risk discussed: Yes Anesthesia Plan: Verified ASA Class: IV Anesthesia Type: MAC Preoperative Comments Pre-Operative Comments: Discussed at length the risks/benefits related to anesthesia with pt. Pt verbalizes understanding and wishes to proceed.
--- NOTE | 2024-03-01 10:36 | P.PN_ITS ---
Subjective Subjective Date: 03/01/24 Time: 10:36 Principal diagnosis: CHF, LV dysfunction Interval history: 58-year-old white male sitting at bedside in no acute distress. Still with weakness. Discussed recommendation for biventricular AICD (STRIP STAMP STRAIGHTENER-D) today and he agrees to proceed. Exam Data for Last 24 hours Vital signs and Labs for Last 24 Hours: Temp Pulse Resp BP Pulse Ox O2 Del Method O2 Flow Rate 98 F 70 16 132/76 100 Nasal Cannula 2 03/01/24 07:58 03/01/24 08:00 03/01/24 07:58 03/01/24 07:58 03/01/24 07:58 03/01/24 09:00 03/01/24 09:00 Laboratory Results - last 24 hr 02/28/24 17:53: Sodium Cancelled, Potassium Cancelled, Chloride Cancelled, Carb on Dioxide Cancelled, Anion Gap Cancelled, BUN Cancelled, Creatinine Cancelled, Estimated Creat Clear Cancelled, Estimated GFR Cancelled, Est GFR ( Amer) Cancelled, Glucose Cancelled, Calcium Cancelled 02/29/24 05:39: Potassium 3.9, BUN 77 H, Creatinine 3.60 H, Est GFR ( Amer) 21 L, Glucose 127 H D 03/01/24 07:55: Sodium 139, Potassium 3.8, Chloride 103, Carbon Dioxide 31 H, Anion Gap 8.8, BUN 78 H, Creatinine 3.50 H, Estimated Creat Clear 30, Estimated GFR 18 L*, Est GFR ( Amer) 22 L, Glucose 157 H, Calcium 8.5, Total Bilirubin 1.3, AST 43, ALT 18, Alkaline Phosphatase 307 H, NT-Pro-B Natriuret Pep 49827 H, Total Protein 6.2 L, Albumin 3.5, Globulin 2.7, Albumin/Globulin Ratio 1.3 I & O for Last 24 hours: Intake & Output 02/27/24 02/28/24 02/29/24 03/01/24 11:59 11:59 11:59 11:59 Intake Total 1260 / 1260 450 / 450 2422 / 2422 759 / 759 Output Total 1900 / 1900 3825 / 4100 6650 / 6650 2375 / 2375 Balance -640 / -640 -3375 / -3650 -4228 / -4228 -1616 / -1616 Weight 185 lb 185 lb 0.014 oz 198 lb 11.2 oz 198 lb 11.207 oz Microbiology Reports for the Last 24 Hours: Microbiology 02/28/24 07:49 Leg,Right - Wound Gram Stain - Final 02/28/24 07:49 Leg,Right - Wound Wound Culture - Preliminary Gram Positive Cocci Gram Positive Cocci#2 Constitutional Constitutional: mild distress *Routine Respiratory Exam Respiratory: Present CTA bilaterally *Routine Cardiovascular Exam Cardiovascular: Present RRR Progress Note: A&P Assessment and plan (1) HFrEF (heart failure with reduced ejection fraction): Status: Acute (2) Ischemic cardiomyopathy: Status: Acute (3) Peripheral arterial disease: Status: Acute (4) Hyperlipidemia: Status: Acute (5) Diabetes mellitus: Status: Acute (6) COPD (chronic obstructive pulmonary disease): Status: Acute (7) Hypertension: Status: Acute (8) Non-STEMI (non-ST elevated myocardial infarction): Status: Acute (9) CKD stage 4 due to type 2 diabetes mellitus: Status: Acute (10) Aortic stenosis, moderate: Status: Acute Assessment and Plan Assessment and Plan for All Diagnoses:: 1. Acute on chronic HFrEF with possible cardiorenal syndrome -[place] 49[place] [address] -continue IV bumex -plan for BiV AICD on 03/01/2024 -Unable to add NARESH/ARB/Entresto or spironolactone due to CKD -Consider Jardiance once euvolemic -echo, 02/25/2024, EF 20% -Diuresed almost 9 L at this point 2. CKD, stage IV -Continue to monitor -Cr 3.5 and GFR 18 today 3. COPD -RVSP 30-35 mm Hg on echo this admission 4. Diabetes mellitus -on insulin -Hgb A1C is 7.8 last month 5. History of borderline ascending aortic aneurysm, 3.7 cm, on echo this admission -follow up echo in 3-6 months. 6. Chronic mild anemia with hemoglobin around 10-11 7. CAD -elevated troponins (0.29 max) without new wall motion abnormalities on echo. Likely due to CKD -Continue metoprolol and Isordil along with aspirin and Plavix 8. Aortic stenosis, moderate, 01/2024, possibly underestimated due to cardiomyopathy 9. Mitral regurgitation, moderate, 01/2024 echo Proceed with BiV AICD on 03/01/2024 due to severe LV dysfunction with wide QRS on EKG and recurrent congestive heart failure despite GDMT (limited due to stage IV CKD). Hold off on cardiac catheterization at this time. Continue diuresis
[2024-03-01 11:11] LABS: POC Glucose,Bedside 139 (70-110)
--- NOTE | 2024-03-01 11:28 | PC.NURSE ---
late entry for 0830: when administering morning medications pt would pick and choose which medications he was willing to take. educated pt on the importance of medication compliance and the reasoning for taking each medication. pt was adamant that he would not take certain medications, but would not elaborate on why. pt was also offered to lay in bed and elevate feet instead of sitting on the edge and pt refused, stating that he was more comfortable on the edge. pt educated on the need to not get out of bed without assistance due to fall risk. pt agreeable.
[2024-03-01] MEDS: 0.9 % SODIUM CHLORIDE 1000ML 1,000 ML 25 ML IV (14:15)
[2024-03-01] MEDS: CLINDAMYCIN PHOSPHATE/D5W 900 MG/50 ML PIGGYBACK 100 MG IV (14:17)
[2024-03-01] MEDS: LIDOCAINE 1% W/EPI 1:100,000 20ML VIAL 20 ML SQ (14:17)
[2024-03-01] MEDS: CLINDAMYCIN PHOSPHATE 900 MG in 0.9 % SODIUM CHLORIDE 100 ML 100 MG TP (14:17)
--- NOTE | 2024-03-01 15:31 | XR_ITS ---
PROCEDURE INFORMATION: Exam: XR Chest Exam date and time: 03/01/2024 5:30 PM Age: 58 years old Clinical indication: Device placement; Cardiac pacemaker placement or adjustment; Prior surgery; Surgery date: Post-operative (0-2 days); Additional info: Confirm pacemaker/aid placement TECHNIQUE: Imaging protocol: Radiologic exam of the chest. Views: 1 view. COMPARISON: CR XR CHEST PORTABLE 02/23/2024 7:38 PM FINDINGS: Tubes, catheters and devices: Multi lead pacemaker device is identified. Lungs: Imaging through the visualized lung pandey demonstrates mild bibasilar subsegmental atelectasis. Pleural spaces: There is no evidence for pneumothorax. Heart/Mediastinum: Mild enlargement of the cardiac silhouette. Bones/joints: Unremarkable. IMPRESSION: 1. Imaging through the visualized lung pandey demonstrates mild bibasilar subsegmental atelectasis. Pacemaker placement 2. Mild enlargement of the cardiac silhouette. 3. There is no evidence for pneumothorax.
[2024-03-01] MEDS: IOPAMIDOL-370 (76%);100ML BOTTLE 12 ML IV (15:50)
--- NOTE | 2024-03-01 17:17 | PC.NURSE ---
pt received pacemaker today to left chest wall. surgery went well. post ops remain stable. pt has no complaints at this time. educated on restrictions to physical activity post surgery. no questions or concerns at this time. call light within reach, bed in low and locked position and bed alarm on for pt safety.
--- NOTE | 2024-03-01 18:18 | EXP.PN ---
Subjective *Date: 03/01/24 *Time: 18:18 Interval history: Patient continues to be weak, is agreeable to SNF placement after extensive conversations. Tolerated biventricular ICD placement well. Exam Data for Last 24 hours Vital signs and Labs for Last 24 Hours: Temp Pulse Resp BP Pulse Ox O2 Del Method O2 Flow Rate 98 F 74 16 149/85 H 95 Room Air 2 03/01/24 15:40 03/01/24 17:40 03/01/24 17:40 03/01/24 17:40 03/01/24 17:40 03/01/24 17:40 03/01/24 13:00 Laboratory Results - last 24 hr 02/28/24 17:53: Sodium Cancelled, Potassium Cancelled, Chloride Cancelled, Carbon Dioxide Cancelled, Anion Gap Cancelled, BUN Cancelled, Creatinine Cancelled, Estimated Creat Clear Cancelled, Estimated GFR Cancelled, Est GFR ( Amer) Cancelled, Glucose Cancelled, Calcium Cancelled 02/29/24 05:39: Potassium 3.9, BUN 77 H, Creatinine 3.60 H, Est GFR ( Amer) 21 L, Glucose 127 H D 03/01/24 07:55: Sodium 139, Potassium 3.8, Chloride 103, Carbon Dioxide 31 H, Anion Gap 8.8, BUN 78 H, Creatinine 3.50 H, Estimated Creat Clear 30, Estimated GFR 18 L*, Est GFR ( Amer) 22 L, Glucose 157 H, Calcium 8.5, Total Bilirubin 1.3, AST 43, ALT 18, Alkaline Phosphatase 307 H, NT-Pro-B Natriuret Pep 24774 H, Total Protein 6.2 L, Albumin 3.5, Globulin 2.7, Albumin/Globulin Ratio 1.3 03/01/24 11:05: POC Glucose 139 H I & O for Last 24 hours: Intake & Output 02/27/24 02/28/24 02/29/24 03/01/24 23:59 23:59 23:59 23:59 Intake Total 780 / 780 1050 / 2512 2164 / 2341 177 / 177 Output Total 2700 / 2700 3775 / 7675 6300 / 6300 950 / 950 Balance -1920 / -1920 -7035 / -5163 -7236 / -3959 -773 / -773 Weight 83.915 kg 83.91 kg 90.129 kg 90.129 kg Microbiology Reports for the Last 24 Hours: Microbiology 02/28/24 07:49 Leg,Right - Wound Gram Stain - Final 02/28/24 07:49 Leg,Right - Wound Wound Culture - Preliminary Gram Positive Cocci Gram Positive Cocci#2 Constitutional Constitutional: no acute distress *Routine HEENT Exam Head: Present normocephalic Eye: Present EOMI and PERRL ENT: Present mucous membranes moist *Routine Neck Exam Neck: Present supple; Absent lymphadenopathy *Routine Respiratory Exam Respiratory: Present CTA bilaterally *Routine Cardiovascular Exam Cardiovascular: Present RRR *Routine Abdominal Exam Abdominal: Present soft and normoactive bowel sounds; Absent tenderness *Routine Extremities Exam Extremities: Absent cyanosis, clubbing or edema Comments: Right lower extremity pitting edema 2+. Chronic venous stasis changes Left AKA. *Routine Skin Exam Skin: Present warm; Absent rash *Routine Neurological Exam Neurological: Present alert and oriented X3 Assessment and Plan *Assessment and plan (1) HFrEF (heart failure with reduced ejection fraction): Status: Acute Category: Medical Code(s): I50.20 - Unspecified systolic (congestive) heart failure (2) Ischemic cardiomyopathy: Status: Acute Category: Medical Code(s): I25.5 - Ischemic cardiomyopathy (3) Peripheral arterial disease: Status: Acute Category: Medical Code(s): I73.9 - Peripheral vascular disease, unspecified (4) Hyperlipidemia: Status: Acute Qualifiers: Hyperlipidemia type: mixed hyperlipidemia Qualified Code(s): E78.2 - Mixed hyperlipidemia Category: Medical Code(s): E78.5 - Hyperlipidemia, unspecified (5) Diabetes mellitus: Status: Acute Qualifiers: Diabetes mellitus type: type 2 Diabetes mellitus usp insulin use: with usp use Diabetes mellitus complication status: without complication Qualified Code(s): E11.9 - Type 2 diabetes mellitus without complications; Z79.4 - nursing home (current) use of insulin Category: Medical Code(s): E11.9 - Type 2 diabetes mellitus without complications (6) COPD (chronic obstructive pulmonary disease): Status: Acute Qualifiers: COPD type: chronic bronchitis Chronic bronchitis type: unspecified Qualified Code(s): J42 - Unspecified chronic bronchitis Category: Medical Code(s): J44.9 - Chronic obstructive pulmonary disease, unspecified (7) Hypertension: Status: Acute Qualifiers: Hypertension type: primary hypertension Qualified Code(s): I10 - Essential (primary) hypertension Category: Medical Code(s): I10 - Essential (primary) hypertension (8) Non-STEMI (non-ST elevated myocardial infarction): Status: Acute Category: Medical Code(s): I21.4 - Non-ST elevation (NSTEMI) myocardial infarction (9) CKD stage 4 due to type 2 diabetes mellitus: Status: Acute Category: Medical Code(s): E11.22 - Type 2 diabetes mellitus with diabetic chronic kidney disease; N18.4 - Chronic kidney disease, stage 4 (severe) Plan This is a 58-year-old male being admitted for acute on chronic CHF exacerbation. Condition complicated by his poorly controlled diabetes, peripheral vascular disease, CKD 4. Continues to require oxygen, wearing 1 to 2 L. Very poor response so far to diuresis. Continues to require inpatient management for increased aggressive diuresis. Close monitoring of kidney function and electrolytes. Having good response, -3.5 liters over the past 3 days. Problems addressed as follows: #Acute on chronic hypoxic respiratory failure, resolved HFrEF exacerbation NSTEMI type II CKD stage IV ? History of CAD status post 3 stents in March. ? Continue Bumex 2 mg IV twice daily. Having improved response. -1-1/2 L yesterday, 3.5 L in the past 3 days. Creatinine down to 3.5, BUN stable at 85. Repeat BMP ordered for this afternoon and CBC, CMP, magnesium ordered for the morning. Replacing electrolytes per protocol. Potassium 4.0 - Anticipate bump in kidney function while we aggressively diuresed, anticipate function will improve with better perfusion and improvement in volume status as he is making good urine. -Improvement metabolic acidosis, bicarb 26 today. Continue bicarb replacement with 650 mg p.o. 3 times a day ? BNP elevated at 79,000 on admission, improved to 39,000 02/24, repeat today of 49k - ECHO shows LVEF 20% with similar inferior akinesis as March this year, had been LVEF 30% earlier this. Patient does not want LifeVest at this time after extensively discussing risks and benefits. - Continue aspirin, Plavix 75 mg. ? Given patient's advanced CKD stage IV, unable to start NARESH/ARB/ARNI, MRA, or SGLT2i. - hydralazine 50 mg 3 times daily, Isordil to 20 mg 3 times daily after speaking to cardiology. ? S/p biventricular ICD today 03/01/2024. #Physical deconditioning ? PT/OT recommending SNF. Initially patient was reluctant to go to SNF, wanted home health. ? Today, after extensive discussion about his extensive deconditioning and my belief that he would not be safe at home the way that he has patient is agreeable for SNF placement. ? Case management consulted, pending recommendations. Type 2 diabetes Diabetic neuropathy -Hemoglobin A1c 7.8; glucose this morning 81 -Continue Lantus at 13 units nightly -SSI for additional glycemic control ? Started gabapentin 300 mg nightly for neuropathy. COPD -Not in acute exacerbation, on baseline oxygen requirements 1 to 2 L continuous -DuoNebs as needed, Continue Dulera -Maintain SpO2 greater than 90% HTN HLD -Continue statin, beta-stacy, hydralazine DVT prophylaxis: Heparin CODE STATUS: Full code Surrogate decision maker: Saurabh [phone] Lovenox 30 mg subcu daily
[2024-03-01 20:47] LABS: POC Glucose,Bedside 247 (70-110)
[2024-03-01] MEDS: GABAPENTIN 300MG CAPSULE 300 MG PO (21:00)
[2024-03-01] MEDS: ATORVASTATIN 40MG TABLET 80 MG PO (21:00)
[2024-03-01] MEDS: TRAZODONE 50MG TABLET 50 MG PO (21:00)
[2024-03-01] MEDS: humaLOG 100 UNITS/ML 10ML VIAL (SSI) SUBCUT (21:01)
[2024-03-01] MEDS: INSULIN GLARGINE 100 UNITS/ML 3ML FLEXPEN 10 UNIT SUBCUT (21:08)
[2024-03-02] VITALS: BP 119/70; PULSE 77; PULSE 80; RESP 18; TEMP 36.7; O2SAT 98
[2024-03-02 04:00] VITALS: BP 135/78; PULSE 70; PULSE 84; RESP 18; TEMP 36.7; O2SAT 100; BMI 27.4
[2024-03-02] MEDS: OXYCODONE 5MG W/APAP 325MG TABLET 2 EACH PO (04:02)
[2024-03-02] MEDS: FLUTICASONE/SALMETEROL 250/50MCG DISKUS 1 PUFF IH (05:17)
[2024-03-02 05:18] VITALS: O2SAT 99
[2024-03-02] MEDS: humaLOG 100 UNITS/ML 10ML VIAL (SSI) SUBCUT ×2 (05:58→11:30)
[2024-03-02 06:18] LABS: POC Glucose,Bedside 198 (70-110)
[2024-03-02 06:46] LABS: Basophils % 0.5 % (0.1-2.0); Eosinophils # 0.1 K/mm3 (0.0-0.4); Eosinophils % 1.7 % (0.1-12.0); Hematocrit 32.3 % (42.0-52.0); Hemoglobin 10.3 g/dL (14.1-18.0); Lymphocytes # 0.7 K/mm3 (0.7-4.5); Lymphocytes % 13.9 % (10-50); Mean Corpuscular Volume 84.3 fl (80-94); Mean Platelet Volume 9.3 fl (7.4-10.4); Monocytes # 0.6 K/mm3 (0.1-1.0); Monocytes % 10.8 % (1.7-9.3); Neutrophils # 3.7 K/mm3 (1.8-7.8); Neutrophils % 73.1 % (37.0-80.0); Platelet Count 159 K/mm3 (142-424); Red Blood Count 3.84 M/mm3 (4.60-6.20); Red Cell Distribution Width 18.5 % (11.5-17.5); White Blood Count 5.1 K/mm3 (4.8-10.8)
[2024-03-02 06:53] LABS: Chloride 103 mmol/L (98-107)
[2024-03-02 06:54] LABS: Albumin Level 3.1 g/dl (3.5-5.0); Potassium 4.7 mmoL/L (3.5-5.1); Sodium 138 mmol/L (136-145)
[2024-03-02 06:56] LABS: Alanine Aminotransferase 21 U/L (12-78); Anion Gap 10.7 mEq/L (5-15); Aspartate Amino Transferase 46 U/L (17-59); Carbon Dioxide 29 mmol/L (22.0-30.0); Creatinine Clearance Estimated 32 mL/min (50-200); Estimated Glomerular Filt Rate 19 ml/min (>60); GFR (African American) 23 ML/MIN (>60)
[2024-03-02 06:57] LABS: Albumin/Globulin Ratio 1.1 (1.1-1.8); Alkaline Phosphatase 291 U/L (38-126); Bilirubin,Total 1.1 mg/dl (0.2-1.3); Calcium 8.1 mg/dl (8.4-10.2); Globulin 2.7 g/dL (1.3-3.2); Glucose 193 mg/dl (74-100); Total Protein,Serum 5.8 g/dl (6.3-8.2)
[2024-03-02 07:07] LABS: Blood Urea Nitrogen 81 mg/dl (9-20)
--- NOTE | 2024-03-02 07:59 | PC.NURSE ---
Pt. is alert and orientated x 4. Pt. was agreeable with treatments and medications overnight. Pt. slpt off and on. Pt. medicated with oxycodone 2 tabs PO for right leg/foot pain. VSS. Personal items and call reyes in reach. Pt. remains on fluid restriction 1500 ml /day.
[2024-03-02 08:00] VITALS: BP 136/88; PULSE 73; PULSE 80; RESP 21; TEMP 36.9; O2SAT 99
--- NOTE | 2024-03-02 08:49 | EXP.CARD.PN ---
Subjective Subjective Date: 03/02/24 Time: 08:56 Principal diagnosis: CHF, LV dysfunction Interval history: 58-year-old white male sitting at bedside in no acute distress. Still with complaint of fatigue and weakness even though shortness of breath has improved. He has diuresed 9 L of fluid during his stay. BiV ICD was implanted yesterday without complications. Discussed with patient recommendation to go to rehab to help build up his strength in order to go home safely. Exam Data for Last 24 hours Vital signs and Labs for Last 24 Hours: Temp Pulse Resp BP Pulse Ox O2 Del Method O2 Flow Rate 98.5 F 73 21 136/88 99 Nasal Cannula 2 03/02/24 08:00 03/02/24 08:00 03/02/24 08:00 03/02/24 08:00 03/02/24 08:00 03/02/24 08:00 03/02/24 08:00 Laboratory Results - last 24 hr 02/28/24 17:53: Sodium Cancelled, Potassium Cancelled, Chloride Cancelled, Carbon Dioxide Cancelled, Anion Gap Cancelled, BUN Cancelled, Creatinine Cancelled, Estimated Creat Clear Cancelled, Estimated GFR Cancelled, Est GFR ( Amer) Cancelled, Glucose Cancelled, Calcium Cancelled 02/29/24 05:39: Potassium 3.9, BUN 77 H, Creatinine 3.60 H, Est GFR ( Amer) 21 L, Glucose 127 H D 03/01/24 07:55: NT-Pro-B Natriuret Pep 68282 H 03/01/24 11:05: POC Glucose 139 H 03/01/24 20:37: POC Glucose 247 H 03/02/24 05:45: POC Glucose 198 H 03/02/24 05:46: WBC 5.1, RBC 3.84 L, Hgb 10.3 L, Hct 32.3 L, MCV 84.3, MCH 27.0, MCHC 32.0, RDW 18.5 H, Plt Count 159, MPV 9.3, Neut % (Auto) 73.1, Lymph % (Auto) 13.9, [place] % (Auto) 10.8 H, Eos % (Auto) 1.7, Baso % (Auto) 0.5, Neut # (Auto) 3.7, Lymph # (Auto) 0.7, [place] # (Auto) 0.6, Eos # (Auto) 0.1, Baso # (Auto) 0.0, Sodium 138, Potassium 4.7 D, Chloride 103, Carbon Dioxide 29, Anion Gap 10.7, BUN 81 H, Creatinine 3.40 H, Estimated Creat Clear 32, Estimated GFR 19 L*, Est GFR ( Amer) 23 L, Glucose 193 H D, Calcium 8.1 L, Total Bilirubin 1.1, AST 46, ALT 21, Alkaline Phosphatase 291 H, Total Protein 5.8 L, Albumin 3.1 L D, Globulin 2.7, Albumin/Globulin Ratio 1.1 I & O for Last 24 hours: Intake & Output 02/28/24 02/29/24 03/01/24 03/02/24 11:59 11:59 11:59 11:59 Intake Total 450 / 450 2422 / 2422 759 / 759 840 / 840 Output Total 3825 / 4100 6650 / 6650 2675 / 2675 425 / 425 Balance -3375 / -3650 -4228 / -4228 -1916 / -1916 415 / 415 Weight 185 lb 0.014 oz 198 lb 11.2 oz 198 lb 11.207 oz 202 lb 9.6 oz Microbiology Reports for the Last 24 Hours: Microbiology 02/28/24 07:49 Leg,Right - Wound Gram Stain - Final 02/28/24 07:49 Leg,Right - Wound Wound Culture - Preliminary Gram Positive Cocci Gram Positive Cocci#2 Constitutional Constitutional: no acute distress *Routine Respiratory Exam Respiratory: Present CTA bilaterally *Routine Cardiovascular Exam Cardiovascular: Present RRR Progress Note: A&P Assessment and plan (1) HFrEF (heart failure with reduced ejection fraction): Status: Acute (2) Ischemic cardiomyopathy: Status: Acute (3) Peripheral arterial disease: Status: Acute (4) Hyperlipidemia: Status: Acute (5) Diabetes mellitus: Status: Acute (6) COPD (chronic obstructive pulmonary disease): Status: Acute (7) Hypertension: Status: Acute (8) Non-STEMI (non-ST elevated myocardial infarction): Status: Acute (9) CKD stage 4 due to type 2 diabetes mellitus: Status: Acute (10) Aortic stenosis, moderate: Status: Acute (11) Biventricular automatic implantable cardioverter defibrillator in situ: Status: Acute Assessment and Plan Assessment and Plan for All Diagnoses:: 1. Acute on chronic HFrEF with possible cardiorenal syndrome [place] [address] -continues on IV bumex -BiV AICD placed on 03/01/2024 -Unable to add NARESH/ARB/Entresto or spironolactone due to CKD -Consider Jardiance once euvolemic -echo, 02/25/2024, EF 20% -Diuresed over 9 L at this point 2. CKD, stage IV -Continue to monitor -Cr 3.4 and GFR 19 today 3. COPD -RVSP 30-35 mm Hg on echo this admission 4. Diabetes mellitus -on insulin -Hgb A1C is 7.8 last month 5. History of borderline ascending aortic aneurysm, 3.7 cm, on echo this admission -follow up echo in 3-6 months. 6. Chronic mild anemia with hemoglobin around 10-11 7. CAD -elevated troponins (0.29 max) without new wall motion abnormalities on echo. Likely due to CKD -Continue metoprolol and Isordil along with aspirin and Plavix 8. Aortic stenosis, moderate, 01/2024, possibly underestimated due to cardiomyopathy 9. Mitral regurgitation, moderate, 01/2024 echo Continue diuresis Recommend rehab for cardiac conditioning, cardiac volume monitoring and help with ADL's post ICD implantation. Stable from cardiac standpoint for discharge per Dr. Valencia Med recommendations: Aspirin 81 mg daily Plavix 75 mg daily Lipitor 80 mg daily Metoprolol succinate 50 mg daily Hydralazine 50 mg 3 times daily Bumex 2 mg twice daily Isordil 20 mg 3 times daily Follow-up BMP next week Follow-up in our office in 1 week to assess ICD implantation site and remove santos.
[2024-03-02 08:57] LABS: Thyroid Stimulating Hormone 2.01 uIU/mL (0.465-4.68)
[2024-03-02] MEDS: BUMETANIDE 1MG/4ML VIAL 2 MG IV (09:00)
[2024-03-02] MEDS: ISOSORBIDE DINITRATE 20 MG TABLET PO ×2 (09:00→12:25)
[2024-03-02] MEDS: HYDRALAZINE HCL 25MG TABLET 50 MG PO ×2 (09:00→12:25)
[2024-03-02] MEDS: METOPROLOL SUCCINATE XL 50MG TABLET 50 MG PO (09:01)
[2024-03-02] MEDS: SODIUM BICARBONATE 650MG TABLET 650 MG PO ×2 (09:01→12:25)
[2024-03-02 09:33] LABS: Vitamin B12 625 pg/mL (239-931)
[2024-03-02 09:50] LABS: Folate 8.27 ng/mL
[2024-03-02 10:42] LABS: Free T4 (Free Thyroxine) 1.37 ng/dl (0.78-2.19)
[2024-03-02 11:32] LABS: POC Glucose,Bedside 213 (70-110)
[2024-03-02 12:00] VITALS: BP 130/84; PULSE 71; RESP 17; TEMP 36.4; O2SAT 98
[2024-03-02 12:19] VITALS: O2SAT 98
--- NOTE | 2024-03-02 12:19 | PC.NURSE ---
pt RA sat 98%
--- NOTE | 2024-03-02 12:39 | P.DS_ITS ---
General Admission date:: 02/23/24 HPI HPI HPI: 58 yr. old male, presents with HX of acute on Chronic CHF exacerbation. Poorly controlled diabetes, peripheral vascular disease, CKD 4. Type 2 diabetes with diabetic neuropathy, hemoglobin A1c 7.8% podiatry consulted for right lower extremity edema, diabetic foot, L AKA. Hospital Course Hospital Course Hospital Course: This is a 58-year-old male being admitted for acute on chronic HFrEF exacerbation. Condition complicated by his poorly controlled diabetes, peripheral vascular disease, CKD 4. #Acute on chronic hypoxic respiratory failure #HFrEF exacerbation #NSTEMI type II #CKD stage IV ? History of CAD status post 3 stents in March. - ECHO shows LVEF 20% with similar inferior akinesis as March this year, had been LVEF 30% earlier this. Patient does not want LifeVest at this time after extensively discussing risks and benefits. ? BNP elevated at 79,000 on admission, improved to 39,000 02/24 ? Responded well to IV Bumex diuresis. Had a total of nearly 9 L net urine output. ? 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 S/p biventricular ICD 03/01/2024. - Continue aspirin 81mg, Plavix 75 mg. ? Given patient's advanced CKD stage IV, unable to start NARESH/ARB/ARNI, MRA, or SGLT2i. - Per cardiology recommendations, uptitrated hydralazine 50 mg 3 times daily, Isordil to 20 mg 3 times daily. ? 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 ? Weaned to room air with appropriate saturations. ? Discharged with Bumex 2 mg twice daily, metoprolol succinate 50 mg, aspirin 81 mg, Plavix 75 mg, hydralazine 50 mg TID, Isordil 20 mg TID, sodium bicarb 3 650 mg daily. #Physical deconditioning ? PT/OT recommending SNF. After extensive conversations, patient elected to not pursue SNF and wanted home health instead. Discharged with home health with PT/ OT/SN. Type 2 diabetes Diabetic neuropathy - Hemoglobin A1c 7.8 - Continue Lantus at 13 units nightly. Unable to continue metformin, SGLTi due to stage IV CKD. ? Continue home Ozempic. ? Started gabapentin 300 mg nightly for neuropathy. COPD -Not in acute exacerbation, on baseline oxygen requirements 1 to 2 L continuous -DuoNebs as needed, Continue Dulera HTN HLD -Continue statin, beta-stacy, hydralazine Exam Data for Last 24 hours Vital signs and Labs for Last 24 Hours: Temp Pulse Resp BP Pulse Ox O2 Del Method O2 Flow Rate 97.6 F 71 17 130/84 98 Room Air 2 03/02/24 12:00 03/02/24 12:00 03/02/24 12:00 03/02/24 12:00 03/02/24 12:19 03/02/24 12:19 03/02/24 11:00 Laboratory Results - last 24 hr 03/01/24 20:37: POC Glucose 247 H 03/02/24 05:45: POC Glucose 198 H 03/02/24 05:46: WBC 5.1, RBC 3.84 L, Hgb 10.3 L, Hct 32.3 L, MCV 84.3, MCH 27.0, MCHC 32.0, RDW 18.5 H, Plt Count 159, MPV 9.3, Neut % (Auto) 73.1, Lymph % (Auto) 13.9, Schley % (Auto) 10.8 H, Eos % (Auto) 1.7, Baso % (Auto) 0.5, Neut # (Auto) 3.7, Lymph # (Auto) 0.7, Schley # (Auto) 0.6, Eos # (Auto) 0.1, Baso # (Auto) 0.0, Sodium 138, Potassium 4.7 D, Chloride 103, Carbon Dioxide 29, Anion Gap 10.7, BUN 81 H, Creatinine 3.40 H, Estimated Creat Clear 32, Estimated GFR 19 L*, Est GFR ( Amer) 23 L, Glucose 193 H D, Calcium 8.1 L, Total Bilirubin 1.1, AST 46, ALT 21, Alkaline Phosphatase 291 H, Total Protein 5.8 L, Albumin 3.1 L D, Globulin 2.7, Albumin/Globulin Ratio 1.1, Vitamin B12 625, Folate 8.27, TSH 2.01, Free T4 1.37 03/02/24 11:25: POC Glucose 213 H I & O for Last 24 hours: Intake & Output 02/28/24 02/29/24 03/01/24 03/02/24 23:59 23:59 23:59 23:59 Intake Total 1050 / 2512 2164 / 2341 477 / 477 540 / 540 Output Total 3775 / 7675 6300 / 6300 1225 / 1225 150 / 150 Balance -2725 / -5163 -4136 / -3959 -748 / -748 390 / 390 Weight 83.91 kg 90.129 kg 90.129 kg 91.898 kg Microbiology Reports for the Last 24 Hours: Microbiology 02/28/24 07:49 Leg,Right - Wound Gram Stain - Final 02/28/24 07:49 Leg,Right - Wound Wound Culture - Preliminary Gram Positive Cocci Gram Positive Cocci#2 Constitutional Constitutional: no acute distress *Routine HEENT Exam Head: Present normocephalic Eye: Present EOMI and PERRL ENT: Present mucous membranes moist *Routine Neck Exam Neck: Present supple; Absent lymphadenopathy *Routine Respiratory Exam Respiratory: Present CTA bilaterally *Routine Cardiovascular Exam Cardiovascular: Present RRR *Routine Abdominal Exam Abdominal: Present soft and normoactive bowel sounds; Absent tenderness *Routine Extremities Exam Extremities: Absent cyanosis, clubbing or edema Comments: Right lower extremity pitting edema 2+. Chronic venous stasis changes Left AKA. *Routine Skin Exam Skin: Present warm; Absent rash *Routine Neurological Exam Neurological: Present alert and oriented X3 Results Data Completed and Pending Labs on day of discharge: Labs from last 24 hours 03/02/24 03/02/24 03/02/24 11:25 05:46 05:45 WBC 5.1 RBC 3.84 L Hgb 10.3 L Hct 32.3 L MCV 84.3 MCH 27.0 MCHC 32.0 RDW 18.5 H Plt Count 159 MPV 9.3 Neut % (Auto) 73.1 Lymph % (Auto) 13.9 Schley % (Auto) 10.8 H Eos % (Auto) 1.7 Baso % (Auto) 0.5 Neut # (Auto) 3.7 Lymph # (Auto) 0.7 Schley # (Auto) 0.6 Eos # (Auto) 0.1 Baso # (Auto) 0.0 Sodium 138 Potassium 4.7 D Chloride 103 Carbon Dioxide 29 Anion Gap 10.7 BUN 81 H Creatinine 3.40 H Estimated Creat Clear 32 Estimated GFR 19 L* Est GFR ( Amer) 23 L Glucose 193 H D POC Glucose 213 H 198 H Calcium 8.1 L Total Bilirubin 1.1 AST 46 ALT 21 Alkaline Phosphatase 291 H Total Protein 5.8 L Albumin 3.1 L D Globulin 2.7 Albumin/Globulin Ratio 1.1 Vitamin B12 625 Folate 8.27 TSH 2.01 Free T4 1.37 03/01/24 20:37 WBC RBC Hgb Hct MCV MCH MCHC RDW Plt Count MPV Neut % (Auto) Lymph % (Auto) Schley % (Auto) Eos % (Auto) Baso % (Auto) Neut # (Auto) Lymph # (Auto) Schley # (Auto) Eos # (Auto) Baso # (Auto) Sodium Potassium Chloride Carbon Dioxide Anion Gap BUN Creatinine Estimated Creat Clear Estimated GFR Est GFR ( Amer) Glucose POC Glucose 247 H Calcium Total Bilirubin AST ALT Alkaline Phosphatase Total Protein Albumin Globulin Albumin/Globulin Ratio Vitamin B12 Folate TSH Free T4 Preliminary micro results at discharge 02/28/24 07:49 Wound Culture - Preliminary Leg,Right - Wound Gram Positive Cocci Gram Positive Cocci#2 DS: Diagnosis Discharge Diagnosis (1) HFrEF (heart failure with reduced ejection fraction): Status: Acute Code(s): I50.20 - Unspecified systolic (congestive) heart failure (2) Ischemic cardiomyopathy: Status: Acute Code(s): I25.5 - Ischemic cardiomyopathy (3) Peripheral arterial disease: Status: Acute Code(s): I73.9 - Peripheral vascular disease, unspecified (4) Hyperlipidemia: Status: Acute Code(s): E78.5 - Hyperlipidemia, unspecified Qualifiers: Hyperlipidemia type: mixed hyperlipidemia Qualified Code(s): E78.2 - Mixed hyperlipidemia (5) Diabetes mellitus: Status: Acute Code(s): E11.9 - Type 2 diabetes mellitus without complications Qualifiers: Diabetes mellitus type: type 2 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 Diabetes mellitus complication status: without complication Qualified Code(s): E11.9 - Type 2 diabetes mellitus without complications; Z79.4 - oysterman (current) use of insulin (6) COPD (chronic obstructive pulmonary disease): Status: Acute Code(s): J44.9 - Chronic obstructive pulmonary disease, unspecified Qualifiers: COPD type: chronic bronchitis Chronic bronchitis type: unspecified Qualified Code(s): J42 - Unspecified chronic bronchitis (7) Hypertension: Status: Acute Code(s): I10 - Essential (primary) hypertension Qualifiers: Hypertension type: primary hypertension Qualified Code(s): I10 - Essential (primary) hypertension (8) Non-STEMI (non-ST elevated myocardial infarction): Status: Acute Code(s): I21.4 - Non-ST elevation (NSTEMI) myocardial infarction (9) CKD stage 4 due to type 2 diabetes mellitus: Status: Acute Code(s): E11.22 - Type 2 diabetes mellitus with diabetic chronic kidney disease; N18.4 - Chronic kidney disease, stage 4 (severe) (10) Aortic stenosis, moderate: Status: Acute Code(s): I35.0 - Nonrheumatic aortic (valve) stenosis (11) Biventricular automatic implantable cardioverter defibrillator in situ: Status: Acute Code(s): Z95.810 - Presence of automatic (implantable) cardiac defibrillator Meds Home Medications and Allergies Home Medications ?Medication ?Instructions ?Recorded ?Confirmed ?Type umeclidinium 62.5 mcg/actuation 1 inh inhalation DAILY 04/06/23 02/23/24 History blister powder for inhalation (Incruse Ellipta) mometasone-formoterol HFA 100 2 inh inhalation BID 02/23/24 02/23/24 History mcg-5 mcg/actuation aerosol inhaler (Dulera) metoprolol succinate 50 mg 50 mg PO DAILY 02/24/24 02/24/24 History tablet,extended release 24 hr semaglutide 0.25 mg or 0.5 mg (2 0.25 mg SQ WEEKLY 02/24/24 02/24/24 History mg/3 mL) subcutaneous pen injector (Ozempic) aspirin 81 mg tablet,delayed 81 mg PO DAILY 30 days #30 tabs 02/26/24 Rx release atorvastatin 80 mg tablet 80 mg PO HS 30 days #30 tabs 02/26/24 Rx clopidogrel 75 mg tablet 30 mg (0.4 x 75 mg) PO DAILY 30 02/26/24 Rx days #12 tabs hydralazine 25 mg tablet 50 mg (2 x 25 mg) PO TID 30 days 02/26/24 Rx #180 tabs isosorbide dinitrate 10 mg tablet 20 mg (2 x 10 mg) PO TID 30 days 02/26/24 Rx #180 tabs bumetanide 2 mg tablet 2 mg PO BID #60 tabs 03/02/24 Rx gabapentin 300 mg capsule 300 mg PO HS 30 days #30 caps 03/02/24 Rx insulin glargine 100 unit/mL (3 20 unit (0.2 mL) SQ HS 30 days #6 03/02/24 Rx mL) subcutaneous pen (Basaglar mL KwikPen U-100 Insulin) sodium bicarbonate 650 mg tablet 650 mg PO DAILY 30 days #30 tabs 03/02/24 Rx New Prescriptions to Start Prescriptions: aspirin Erik, atorvastatin Erik, bumetanide Erik, clopidogrel Erik, gabapentin Erik, hydralazine Erik, insulin glargine [Basaglar KwikPen U-100 Insulin] Erik, isosorbide dinitrate Erik, sodium bicarbonate Erik, Allergies Allergy/AdvReac Type Severity Reaction Status Date / Time Penicillins Allergy Verified 04/11/23 14:42 Discharge Plan Disposition Patient Disposition: Home Health Service Condition: Fair Discharge Order Discharge Orders: Discharge Order (Routine); Ordered 03/02/24 Ordered By: John Valencia Follow up Plan Prescriptions/Medication Reconciliation: New sodium bicarbonate 650 mg Tablet 650 mg PO DAILY 30 Days Qty: 30 0RF gabapentin 300 mg Capsule 300 mg PO HS 30 Days Qty: 30 0RF bumetanide 2 mg tablet 2 mg PO BID Qty: 60 0RF Continued Incruse Ellipta 62.5 mcg/actuation blister with device 1 inh INHALATION DAILY Dulera 100-5 mcg/actuation HFA aerosol inhaler 2 inh INHALATION BID Patient Comments: INHALE 2 PUFFS BY MOUTH TWICE DAILY. RINSE MOUTH WITH WATER AFTER USE TO REDUCE AFTERTASTE AND INCIDENCE OF CANDIDASIS. DO NOT SWALLOW metoprolol succinate 50 mg tablet extended release 24 hr 50 mg PO DAILY Ozempic 0.25 mg or 0.5 mg (2 mg/3 mL) pen injector 0.25 mg SQ WEEKLY Patient Comments: INJECT 0.25 MG SUBCUTANEOUSLY ONCE A WEEK FOR 4 WEEKS, THEN INCREASE TO 0.5 MG WEEKLY atorvastatin 80 mg tablet 80 mg PO HS 30 Days Qty: 30 0RF Patient Comments: TAKE 1 TABLET BY MOUTH AT NIGHT aspirin 81 mg Tablet,Delayed Release (Dr/Ec) 81 mg PO DAILY 30 Days Qty: 30 0RF Changed isosorbide dinitrate 10 mg tablet 20 mg PO TID 30 Days Qty: 180 0RF hydralazine 25 mg tablet 50 mg PO TID 30 Days Qty: 180 0RF Patient Comments: TAKE 1 TABLET BY MOUTH THREE TIMES DAILY clopidogrel 75 mg tablet 30 mg PO DAILY 30 Days Qty: 12 0RF insulin glargine [Basaglar KwikPen U-100 Insulin] 100 unit/mL (3 mL) insulin pen 20 unit SQ HS 30 Days Qty: 6 0RF Patient Comments: INJECT 5 UNITS SUBCUTANEOUSLY EVERY NIGHT AT BEDTIME Discontinued losartan 25 mg tablet 25 mg PO DAILY Problem Reconciliation Problems Reviewed?: Yes Patient Discharge Instructions Patient Instructions: DI for Heart Failure, DI for Automatic Cardioverter/Defibrillator Implantation, DI for Diabetic Foot Ulcer, DI for Surgical Site Infection Print Language: Serbian Providers Primary Care Provider: Provider,Referral Admit Provider: John Valencia Attending Provider: John Valencia
== END 2024-03-02 13:50 | disposition home health service (06) | DRG 276 ==
PROVIDERS: Internal Medicine; Internal Medicine Adolescent Medicine; Nurse Practitioner Acute Care; Admitting Provider Student in an Organized Health Care Education/Training Program; Visit Provider Student in an Organized Health Care Education/Training Program
PROC: 0JH608Z Insertion of Defibrillator Generator into Chest Subcutaneous Tissue and Fascia, Open Approach (ICD-10-PCS; CPT 33249; principal; 2024-03-01 11:30)
DX: I13.0 Hypertensive heart and chronic kidney disease with heart failure and stage 1 through stage 4 chronic kidney disease, or unspecified chronic kidney disease (principal); I21.A1 Myocardial infarction type 2; I50.23 Acute on chronic systolic (congestive) heart failure; N18.4 Chronic kidney disease, stage 4 (severe); I25.5 Ischemic cardiomyopathy; I73.9 Peripheral vascular disease, unspecified; E78.2 Mixed hyperlipidemia; E11.22 Type 2 diabetes mellitus with diabetic chronic kidney disease; Z79.4 Long term (current) use of insulin; I25.10 Atherosclerotic heart disease of native coronary artery without angina pectoris; E11.621 Type 2 diabetes mellitus with foot ulcer; Z99.81 Dependence on supplemental oxygen; Z95.5 Presence of coronary angioplasty implant and graft; Z79.899 Other long term (current) drug therapy
CPT/HCPCS: 33225; 33249; 36415; 71045; 73630; 80048; 80053; 82607; 82746; 82962; 83036; 83605; 83735; 83880; 84100; 84439; 84443; 84484; 85025; 85730; 87070; 87077; 87186; 87205; 93005; 93306; 93923; 94640; 94660; 94760; 94761; 97110; 97161; 97165; C1769; C1882; C1895; C1898; C1900; J0736; J1650; J1939; J1940; J2704; J7030; J7620; Q9967

== ENCOUNTER 2024-03-24 15:45 | Inpatient (IN) | payer MEDICARE, MEDICAID, SELFPAY ==
[2024-03-24 15:45] VITALS: BP 146/109; PULSE 104; RESP 20; TEMP 36.9; O2SAT 100; BMI 38.0
--- NOTE | 2024-03-24 15:49 | XR_ITS ---
PROCEDURE INFORMATION: Exam: XR Chest Exam date and time: 03/24/2024 4:24 PM Age: 58 years old Clinical indication: Shortness of breath; Additional info: SOA TECHNIQUE: Imaging protocol: Radiologic exam of the chest. Views: 1 view. COMPARISON: CR XR CHEST PORTABLE 03/01/2024 5:30 PM FINDINGS: Tubes, catheters and devices: Stable positioning of the multi lead pacer device. No evident pneumothorax. Lungs: Interval development of a faint opacity in the right lung base. Lungs otherwise clear. Pleural spaces: See Tubes, catheters and devices finding. Heart/Mediastinum: Cardiomegaly redemonstrated. Bones/joints: Unremarkable. IMPRESSION: 1. Interval development of right basilar opacity may be atelectasis versus infiltrate. Advise follow-up to ensure resolution. 2. Otherwise stable portable chest with cardiomegaly.
--- NOTE | 2024-03-24 15:51 | ECG_ITS ---
APPROVED REPORT Exam: Resting ECG HR:103 bpm ECG Measurements Heart Rate 103 AXES CO 151 P 47 QRSd 117 QRS 24 QT 354 T 85 QTc 413 Conclusion ELECTRONIC VENTRICULAR PACEMAKER ABNORMAL RHYTHM ECG No acute STEMI Electronically signed by : LAURA ARENAS, 03/25/2024 00:09:09
--- NOTE | 2024-03-24 15:53 | ED_ITS ---
Discharge Plan Disposition Patient Disposition: Admitted Clinical Impressions Clinical Impression: Acute CHF (congestive heart failure), Chronic respiratory failure, Pleural effusion, Cirrhosis Discharge ED Provider: Zoey Norman HPI <Adelaida Valdovinos ([facility]), INFORMATICS SPEC - Last Filed: 03/24/24 19:08> General Chief Complaint: Shortness of Breath/Dyspnea Stated Complaint: SOB Time Seen by Provider: 03/24/24 15:47 Mode of Arrival: EMS Source of Information: Patient Limitations: No Limitations Description of Symptoms (Recalled from ER Triage Doc. by RN): pt presents to ED with c/o shortness of air. pt wears 2L NC baseline. EMS reports pt was 100% on 1L NC at pts house. pt reports chest pain as well. unknown length of symptoms. History of Present Illness HPI narrative: [id number] male presents to the ER with complaints of shortness of air and chest pain. Patient states his chest pain started right before calling the ambulance. Patient wears O2 at home just cannot catch his breath. Patient states he had a pacemaker placed 2 weeks ago. Patient states he has not seen a primary care doctor for over 8 months due to edema to his left AKA and he is unable to get his prosthesis on so he could drive a car. Patient states he has no family to help care for him, lives alone. Related Data Home Medications ?Medication ?Instructions ?Recorded ?Confirmed umeclidinium 62.5 mcg/actuation 1 inh inhalation DAILY 04/06/23 02/23/24 blister powder for inhalation (Incruse Ellipta) mometasone-formoterol HFA 100 2 inh inhalation BID 02/23/24 02/23/24 mcg-5 mcg/actuation aerosol inhaler (Dulera) metoprolol succinate 50 mg 50 mg PO DAILY 02/24/24 02/24/24 tablet,extended release 24 hr semaglutide 0.25 mg or 0.5 mg (2 0.25 mg SQ WEEKLY 02/24/24 02/24/24 mg/3 mL) subcutaneous pen injector (Ozempic) Previous Rx's ?Medication ?Instructions ?Recorded aspirin 81 mg tablet,delayed 81 mg PO DAILY 30 days #30 tabs 02/26/24 release atorvastatin 80 mg tablet 80 mg PO HS 30 days #30 tabs 02/26/24 clopidogrel 75 mg tablet 30 mg (0.4 x 75 mg) PO DAILY 30 02/26/24 days #12 tabs hydralazine 25 mg tablet 50 mg (2 x 25 mg) PO TID 30 days 02/26/24 #180 tabs isosorbide dinitrate 10 mg tablet 20 mg (2 x 10 mg) PO TID 30 days 02/26/24 #180 tabs bumetanide 2 mg tablet 2 mg PO BID #60 tabs 03/02/24 gabapentin 300 mg capsule 300 mg PO HS 30 days #30 caps 03/02/24 insulin glargine 100 unit/mL (3 20 unit (0.2 mL) SQ HS 30 days #6 03/02/24 mL) subcutaneous pen (Basaglar mL KwikPen U-100 Insulin) sodium bicarbonate 650 mg tablet 650 mg PO DAILY 30 days #30 tabs 03/02/24 sulfamethoxazole 800 1 tab PO BID infection 10 days #20 03/07/24 mg-trimethoprim 160 mg tablet tabs (Bactrim DS) Allergies Allergy/AdvReac Type Severity Reaction Status Date / Time Penicillins Allergy Verified 04/11/23 14:42 [facility] <Adelaida Valdovinos ([facility]), INFORMATICS SPEC - Last Filed: 03/24/24 19:08> [facility] Disclaimer: The information contained in this section may have been updated after the patient was seen, as this information can be updated by other users. 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 , INFORMATICS SPEC) Lymphedema of right lower extremity Onychodystrophy Thoracic aneurysm without mention of rupture LV dysfunction Ischemic cardiomyopathy Acute blood loss anemia HFrEF (heart failure with reduced ejection fraction) Peripheral arterial disease Stenosis of carotid artery Atypical angina Hyperlipidemia CAD in [place] artery Asthma Diabetes mellitus, type 2 Congestive heart failure Above knee amputation of left lower extremity History of left heart catheterization (LHC) Diabetes mellitus Hypertension COPD (chronic obstructive pulmonary disease) Surgical History , INFORMATICS SPEC) Stented coronary artery Status post above-knee amputation of left lower extremity History of cholecystectomy Family History , INFORMATICS SPEC) Family history of cancer Social History , INFORMATICS SPEC) Smoking Status: Current every day smoker tobacco type: cigarettes packs per day: 2 alcohol intake: never substance use type: denies use current occupational status: disabled Travel in the last 8 weeks: None housing: house current occupational exposures/hazards: No Have you lived/traveled outside [place] in past 30 days?: No Contact w/someone who lives/traveled outside US past 30 days?: No Exposure to someone with infectious disease in past 14 days?: No Do you have a fever (greater than 100.4 F or 38 C)?: No Have you tested positive for COVID-19: No Exposed to someone with COVID-19 in past 14 days?: No Do you have a sore throat?: No Do you have a cough?: No Do you have any weakness?: No Do you have any diarrhea?: No Are you experiencing any unusual bleeding?: No Do you have any muscle aches/pain?: No Do you have any abdominal pain?: No Are you experiencing loss of taste or smell?: No Other 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 Have you received the Flu Vaccine for this season: No Have you received the Pneumonia Vaccine: No <Adelaida Valdovinos ([facility]), INFORMATICS SPEC - Last Filed: 03/24/24 19:08> ROS Obtained: Yes Systems reviewed as appropriate & no additional complaints except as documented Physical Exam <[facility] INFORMATICS SPEC - Last Filed: 03/24/24 19:08> General General appearance: alert ENT ENT exam: Present normal exam Respiratory Respiratory exam: Present wheezes Expanded Respiratory Exam Location: Left: wheezes, rales and decreased breath sounds, Right: wheezes, rales and decreased breath sounds and Lower: rales Cardiovascular Cardiovascular exam: Present regular rate and normal rhythm Abdominal Exam Abdominal exam: Present soft and normal bowel sounds Extremities Exam Extremities exam: Present edema Expanded Lower Extremity Exam Left: Upper leg exam: Present other (AKA) Right: Lower leg exam: Present swelling and other (Stasis ulcers, [place], 3+ edema) Neurological Exam Neurological exam: Present alert and oriented X3 Skin Skin exam: Present warm HEART Score <[facility] INFORMATICS SPEC - Last Filed: 03/24/24 19:08> HEART Score HEART Score assessment performed?: Yes History (anamnesis): Moderately suspicious ECG: Normal Age: 45-65 years Risk factors: Atherosclerosis history Troponin: 1-3x normal limit HEART Score: 5 <Zoey Norman, DO - Last Filed: 03/24/24 23:55> HEART Score HEART Score: 5 Critical Care <Adelaida Valdovinos ([facility]), INFORMATICS SPEC - Last Filed: 03/24/24 19:08> Critical Care Time Critical Care Time: Yes Attestation: On 03/24/24, the high probability of a clinically significant, sudden or life threatening deterioration of the following system(s) required my full and direct attention, intervention and personal management. The time I documented below is in addition to time spent performing reported procedures but includes the following listed in this critical care notation. Total Time Total Critical Care Time: 35 Medical Decision Making <Adelaida Valdovinos ([facility]), INFORMATICS SPEC - Last Filed: 03/24/24 19:08> Medical Records Medical records reviewed: Yes I reviewed the patient's medical records. Pedrito Inquiry Pt receiving controlled substance: No Vital Signs Vital Signs: 03/24/24 15:45 03/24/24 16:30 03/24/24 22:11 Temperature 98.5 F Temperature Source Oral Pulse Rate 100 H 106 H Pulse Rate [Left Radial] 104 H Respiratory Rate 20 Blood Pressure 149/117 H Blood Pressure [Right Arm] 146/109 H Blood Pressure Mean 127 Blood Pressure Mean [Right Arm] 121 02 Sat by Pulse Oximetry 100 100 Oxygen Delivery Method Nasal Cannula Nasal Cannula Oxygen Flow Rate (LPM) 2 3 03/24/24 22:11 Temperature Temperature Source Pulse Rate 107 H Pulse Rate [Left Radial] Respiratory Rate Blood Pressure Blood Pressure [Right Arm] Blood Pressure Mean Blood Pressure Mean [Right Arm] 02 Sat by Pulse Oximetry Oxygen Delivery Method Oxygen Flow Rate (LPM) Lab Data Lab results reviewed: Yes I reviewed the patient's lab results. Labs: Lab Results 03/24/24 16:00: WBC 5.0, RBC 4.24 L, Hgb 11.2 L, Hct 36.7 L, MCV 86.6, MCH 26.4 L, MCHC 30.5 L, RDW 17.7 H, Plt Count 217, MPV 11.0 H, Neut % (Auto) 70.1, Lymph % (Auto) 19.0, [place] % (Auto) 8.5, Eos % (Auto) 1.4, Baso % (Auto) 0.8, Neut # (Auto) 3.5, Lymph # (Auto) 0.9, [place] # (Auto) 0.4, Eos # (Auto) 0.1, Baso # (Auto) 0.0, D-Dimer 2.39 H, Sodium 140, Potassium 5.0, Chloride 105, Carbon Dioxide 28, Anion Gap 12.0, BUN 55 H, Creatinine 2.80 H, Estimated Creat Clear 47, Estimated GFR 24 L, Est GFR ( Amer) 29 L, Glucose 198 H, Calcium 8.9, Total Bilirubin 2.5 H, AST 48, ALT 18, Alkaline Phosphatase 353 H, Troponin I 0.06 H, NT-Pro-B Natriuret Pep 98935 H, Total Protein 6.1 L, Albumin 3.3 L, Globulin 2.8, Albumin/Globulin Ratio 1.2, Procalcitonin 0.163, HIV Ag/Ab Combo Qual Negative 03/24/24 16:06: VBG pH 7.32, VBG pCO2 47.7, VBG pO2 35.3, VBG HCO3 24.0, VBG Total CO2 25.4, VBG O2 Saturation 60.5, VBG Base Excess -2.1, VBG Lactic Acid 2.0 03/24/24 16:00 03/24/24 16:00 Response Orders (Tests/Meds): ED MEDICATIONS Generic Name Dose Route Start Last Admin Trade Name Freq PRN Reason Stop Dose Admin Albuterol Sulfate 2.5 mg 03/24/24 22:03 03/24/24 22:11 Albuterol 0.083% 2.5 Mg/3 Ml Neb IH 03/24/24 22:04 2.5 mg ONCE ONE Administration Lactated Ringer's 500 mls @ 250 mls/hr 03/24/24 20:29 03/24/24 21:32 Lactated Ringer's 500ml IV 03/24/24 22:28 250 mls/hr .Q2H ONE Administration Iopamidol 120 ml 03/24/24 20:58 03/24/24 21:04 Iopamidol-370 (76%);100ml Bottle IV 03/24/24 20:59 120 ml ONCE ONE Administration Lorazepam 0.25 mg 03/24/24 23:02 03/24/24 23:07 Lorazepam 2mg/Ml Vial IV 03/24/24 23:03 0.25 mg ONCE ONE Administration Sodium Chloride 10 ml 03/24/24 17:45 03/24/24 17:47 Sodium Chloride 0.9% 10ml Syr (Rad Only) IV 04/23/24 17:44 10 ml NEEDED PRN Administration Maintain IV Site Sodium Chloride 50 ml 03/24/24 20:58 03/24/24 21:04 0.9 % Sodium Chloride 50 Ml Vial IV 03/24/24 20:59 50 ml ONCE ONE Administration Sodium Chloride 10 ml 03/24/24 20:58 Sodium Chloride 0.9% 10ml Syr (Rad Only) IV 04/23/24 20:57 NEEDED PRN Maintain IV Site Sodium Chloride 10 ml 03/24/24 23:02 Sodium Chloride 0.9% 10ml Vial IV 04/23/24 23:01 NEEDED PRN to Dilute Lorazepam inj Discontinued Medications Generic Name Dose Route Start Last Admin Trade Name Garciaq PRN Reason Stop Dose Admin Albuterol/Ipratropium 9 ml 03/24/24 16:11 03/24/24 16:17 Ipratropium/Albuterol 3 Ml Neb IH 03/24/24 16:12 9 ml ONCE ONE Administration Bumetanide 2 mg 03/24/24 18:32 03/24/24 19:26 Bumetanide 1mg/4ml Vial IV 03/24/24 18:33 2 mg ONCE ONE Administration Magnesium Sulfate 2 gm in 50 mls @ 50 mls/hr 03/24/24 17:29 03/24/24 18:11 Magnesium Sulfate 2gm/50ml Premix IV 03/24/24 18:28 50 mls/hr ONCE ONE Administration Iopamidol 70 ml 03/24/24 17:45 03/24/24 17:47 Iopamidol-370 (76%);100ml Bottle IV 03/24/24 17:46 70 ml ONCE ONE Administration Methylprednisolone Sodium Succinate 125 mg 03/24/24 16:11 03/24/24 16:17 Methylprednisolone Sod Succ 125mg Vial IV 03/24/24 16:12 125 mg ONCE ONE Administration Sodium Chloride 50 ml 03/24/24 17:45 03/24/24 17:47 0.9 % Sodium Chloride 50 Ml Vial IV 03/24/24 17:46 50 ml ONCE ONE Administration ORDERS Category Date Time Status CT angio chest PE protocol Stat Cat Scan 03/24/24 17:12 Completed Chest XR -- portable [XR chest portable] Stat Exams 03/24/24 15:49 Completed BNP [NT Pro Brain Natriuretic Pep.] Stat Lab 03/24/24 16:00 Completed CBC w/Auto Diff [Complete Blood Count Auto Diff] Stat Lab 03/24/24 16:00 Completed CMP [Comprehensive Metabolic Panel] Stat Lab 03/24/24 16:00 Completed D-Dimer Stat Lab 03/24/24 16:00 Completed HIV Combo Stat Lab 03/24/24 16:00 Completed Hep C Ab with Reflex to RNA Stat Lab 03/24/24 16:00 Received Procalcitonin Stat Lab 03/24/24 16:00 Completed Troponin I Q3H Lab 03/24/24 22:00 Completed Troponin I Stat Lab 03/24/24 16:00 Completed Blood Culture Stat Micro 03/24/24 18:10 Received Venous Blood Gas Stat RT 03/24/24 16:06 Completed Physician Consults Physician Consulted: Leilani Time: 06:42 Reason -: Admission MDM Narrative Medical Decision Narrative: In summary patient is a 58-year-old male who presents to the emergency department for evaluation of shortness of breath and chest pain. Patient is hemodynamically stable upon arrival, afebrile. Edema noted to right lower extremity, Rales and wheezing noted. Differential diagnosis includes CHF, PE, COPD, pneumonia. Initial workup will be conducted with labs, CT. Initial inventions include IV Bumex, CT chest to rule out PE, labs, breathing treatments. Initial workup reviewed by me elevated creatinine, CT chest shows bilateral pleural effusion and pericardial effusion. Upon repeat evaluation patient continues to complain of shortness of breath and is unable to care for self at home at this time. Given this patient was appropriate for admission for CHF and social media strategist consult. I informally interpreted patient's CT and is remarkable bilateral pleural effusions and pericardial effusion Documented with disposal worker shows normal sinus rhythm Social determinants of health: Given that patient is stating he cannot take care of himself at home or drive himself to the doctor to obtain care will place social service consult <Zoey Norman DO - Last Filed: 03/24/24 23:55> Vital Signs Vital Signs: 03/24/24 15:45 03/24/24 16:30 03/24/24 22:11 Temperature 98.5 F Temperature Source Oral Pulse Rate 100 H 106 H Pulse Rate [Left Radial] 104 H Respiratory Rate 20 Blood Pressure 149/117 H Blood Pressure [Right Arm] 146/109 H Blood Pressure Mean 127 Blood Pressure Mean [Right Arm] 121 02 Sat by Pulse Oximetry 100 100 Oxygen Delivery Method Nasal Cannula Nasal Cannula Oxygen Flow Rate (LPM) 2 3 03/24/24 22:11 Temperature Temperature Source Pulse Rate 107 H Pulse Rate [Left Radial] Respiratory Rate Blood Pressure Blood Pressure [Right Arm] Blood Pressure Mean Blood Pressure Mean [Right Arm] 02 Sat by Pulse Oximetry Oxygen Delivery Method Oxygen Flow Rate (LPM) Lab Data Labs: Lab Results 03/24/24 16:00: WBC 5.0, RBC 4.24 L, Hgb 11.2 L, Hct 36.7 L, MCV 86.6, MCH 26.4 L, MCHC 30.5 L, RDW 17.7 H, Plt Count 217, MPV 11.0 H, Neut % (Auto) 70.1, Lymph % (Auto) 19.0, [place] % (Auto) 8.5, Eos % (Auto) 1.4, Baso % (Auto) 0.8, Neut # (Auto) 3.5, Lymph # (Auto) 0.9, [place] # (Auto) 0.4, Eos # (Auto) 0.1, Baso # (Auto) 0.0, D-Dimer 2.39 H, Sodium 140, Potassium 5.0, Chloride 105, Carbon Dioxide 28, Anion Gap 12.0, BUN 55 H, Creatinine 2.80 H, Estimated Creat Clear 47, Estimated GFR 24 L, Est GFR ( Amer) 29 L, Glucose 198 H, Calcium 8.9, Total Bilirubin 2.5 H, AST 48, ALT 18, Alkaline Phosphatase 353 H, Troponin I 0.06 H, NT-Pro-B Natriuret Pep 54136 H, Total Protein 6.1 L, Albumin 3.3 L, Globulin 2.8, Albumin/Globulin Ratio 1.2, Procalcitonin 0.163, HIV Ag/Ab Combo Qual Negative 03/24/24 16:06: VBG pH 7.32, VBG pCO2 47.7, VBG pO2 35.3, VBG HCO3 24.0, VBG Total CO2 25.4, VBG O2 Saturation 60.5, VBG Base Excess -2.1, VBG Lactic Acid 2.0 Response Orders (Tests/Meds): ED MEDICATIONS Generic Name Dose Route Start Last Admin Trade Name Freq PRN Reason Stop Dose Admin Albuterol Sulfate 2.5 mg 03/24/24 22:03 03/24/24 22:11 Albuterol 0.083% 2.5 Mg/3 Ml Neb IH 03/24/24 22:04 2.5 mg ONCE ONE Administration Lactated Ringer's 500 mls @ 250 mls/hr 03/24/24 20:29 03/24/24 21:32 Lactated Ringer's 500ml IV 03/24/24 22:28 250 mls/hr .Q2H ONE Administration Iopamidol 120 ml 03/24/24 20:58 03/24/24 21:04 Iopamidol-370 (76%);100ml Bottle IV 03/24/24 20:59 120 ml ONCE ONE Administration Lorazepam 0.25 mg 03/24/24 23:02 03/24/24 23:07 Lorazepam 2mg/Ml Vial IV 03/24/24 23:03 0.25 mg ONCE ONE Administration Sodium Chloride 10 ml 03/24/24 17:45 03/24/24 17:47 Sodium Chloride 0.9% 10ml Syr (Rad Only) IV 04/23/24 17:44 10 ml NEEDED PRN Administration Maintain IV Site Sodium Chloride 50 ml 03/24/24 20:58 03/24/24 21:04 0.9 % Sodium Chloride 50 Ml Vial IV 03/24/24 20:59 50 ml ONCE ONE Administration Sodium Chloride 10 ml 03/24/24 20:58 Sodium Chloride 0.9% 10ml Syr (Rad Only) IV 04/23/24 20:57 NEEDED PRN Maintain IV Site Sodium Chloride 10 ml 03/24/24 23:02 Sodium Chloride 0.9% 10ml Vial IV 04/23/24 23:01 NEEDED PRN to Dilute Lorazepam inj Discontinued Medications Generic Name Dose Route Start Last Admin Trade Name Freq PRN Reason Stop Dose Admin Albuterol/Ipratropium 9 ml 03/24/24 16:11 03/24/24 16:17 Ipratropium/Albuterol 3 Ml Neb IH 03/24/24 16:12 9 ml ONCE ONE Administration Bumetanide 2 mg 03/24/24 18:32 03/24/24 19:26 Bumetanide 1mg/4ml Vial IV 03/24/24 18:33 2 mg ONCE ONE Administration Magnesium Sulfate 2 gm in 50 mls @ 50 mls/hr 03/24/24 17:29 03/24/24 18:11 Magnesium Sulfate 2gm/50ml Premix IV 03/24/24 18:28 50 mls/hr ONCE ONE Administration Iopamidol 70 ml 03/24/24 17:45 03/24/24 17:47 Iopamidol-370 (76%);100ml Bottle IV 03/24/24 17:46 70 ml ONCE ONE Administration Methylprednisolone Sodium Succinate 125 mg 03/24/24 16:11 03/24/24 16:17 Methylprednisolone Sod Succ 125mg Vial IV 03/24/24 16:12 125 mg ONCE ONE Administration Sodium Chloride 50 ml 03/24/24 17:45 03/24/24 17:47 0.9 % Sodium Chloride 50 Ml Vial IV 03/24/24 17:46 50 ml ONCE ONE Administration ORDERS Category Date Time Status CT angio chest PE protocol Stat Cat Scan 03/24/24 17:12 Completed Chest XR -- portable [XR chest portable] Stat Exams 03/24/24 15:49 Completed BNP [NT Pro Brain Natriuretic Pep.] Stat Lab 03/24/24 16:00 Completed CBC w/Auto Diff [Complete Blood Count Auto Diff] Stat Lab 03/24/24 16:00 Completed CMP [Comprehensive Metabolic Panel] Stat Lab 03/24/24 16:00 Completed D-Dimer Stat Lab 03/24/24 16:00 Completed HIV Combo Stat Lab 03/24/24 16:00 Completed Hep C Ab with Reflex to RNA Stat Lab 03/24/24 16:00 Received Procalcitonin Stat Lab 03/24/24 16:00 Completed Troponin I Q3H Lab 03/24/24 22:00 Completed Troponin I Stat Lab 03/24/24 16:00 Completed Blood Culture Stat Micro 03/24/24 18:10 Received Venous Blood Gas Stat RT 03/24/24 16:06 Completed MDM Narrative Medical Decision Narrative: In summary patient is a 58-year-old male who presents to the emergency department for evaluation of shortness of breath and chest pain. Patient is hemodynamically stable upon arrival, afebrile. Edema noted to right lower extremity, Rales and wheezing noted. Differential diagnosis includes CHF, PE, COPD, pneumonia. Initial workup will be conducted with labs, CT. Initial inventions include IV Bumex, CT chest to rule out PE, labs, breathing treatments. Initial workup reviewed by me elevated creatinine, CT chest shows bilateral pleural effusion and pericardial effusion. Upon repeat evaluation patient continues to complain of shortness of breath and is unable to care for self at home at this time. Given this patient was appropriate for admission for CHF and social media strategist consult. I informally interpreted patient's CT and is remarkable bilateral pleural effusions and pericardial effusion Documented with disposal worker shows normal sinus rhythm Social determinants of health: Given that patient is stating he cannot take care of himself at home or drive himself to the doctor to obtain care will place social service consult DO Emerson: I was consulted by the MARILUZ, and we discussed the complexity of the problems being addressed. I approved the treatment and management plan for this patient's care in the emergency department, thus performing a substantive portion of the medical decision making. Patient arrives critically ill with anasarca and concerns for possible limb ischemia with a cold right lower extremity, though this is chronic. He states is not significantly changed. CT angiograms concerning for anasarca, cirrhosis, three-vessel flow to the right lower extremity. Concern for respiratory failure in setting of mixed COPD/CHF exacerbation. He is a poorly compliant patient. Overall, I feel he requires admission because he is critically ill. We did initiate diuresis down here with Bumex. We also gave the patient methylprednisolone, magnesium, nebs, for significant increased work of breathing in the setting of COPD. This did improve his symptoms and respiratory status. Overall, we had an interactive discussion with the hospitalist who admitted the patient in stable condition. Zoey Norman DO
[2024-03-24 16:11] LABS: VBG Base Excess -2.1 mmol/L (-2.4-2.3); VBG Oxygen Saturation 60.5 % (50-70); VBG PCO2 47.7 mmol/L (35-51); VBG PH 7.32 mmol/L (7.31-7.41); VBG PO2 35.3 mmol/L (28-40); VBG Total CO2 25.4 mmol/L (23-27)
[2024-03-24 16:13] LABS: Basophils % 0.8 % (0.1-2.0); Eosinophils # 0.1 K/mm3 (0.0-0.4); Eosinophils % 1.4 % (0.1-12.0); Hematocrit 36.7 % (42.0-52.0); Hemoglobin 11.2 g/dL (14.1-18.0); Lymphocytes # 0.9 K/mm3 (0.7-4.5); Mean Corpuscular HGB Conc 30.5 g/dL (31.8-35.4); Mean Corpuscular Hemoglobin 26.4 pg (27.0-31.2); Mean Corpuscular Volume 86.6 fl (80-94); Monocytes # 0.4 K/mm3 (0.1-1.0); Monocytes % 8.5 % (1.7-9.3); Neutrophils # 3.5 K/mm3 (1.8-7.8); Neutrophils % 70.1 % (37.0-80.0); Platelet Count 217 K/mm3 (142-424); Red Blood Count 4.24 M/mm3 (4.60-6.20); Red Cell Distribution Width 17.7 % (11.5-17.5)
[2024-03-24] MEDS: METHYLPREDNISOLONE SOD SUCC 125MG VIAL 125 MG IV (16:17)
[2024-03-24] MEDS: IPRATROPIUM/ALBUTEROL 3 ML NEB 9 ML IH (16:17)
[2024-03-24 16:19] LABS: Alanine Aminotransferase 18 U/L (12-78); Albumin Level 3.3 g/dl (3.5-5.0); Blood Urea Nitrogen 55 mg/dl (9-20); Chloride 105 mmol/L (98-107)
[2024-03-24 16:23] LABS: D-Dimer 2.39 ug/mL (0.0-0.5)
[2024-03-24 16:30] VITALS: BP 149/117; PULSE 100; O2SAT 100
[2024-03-24 16:47] LABS: Albumin/Globulin Ratio 1.2 (1.1-1.8); Alkaline Phosphatase 353 U/L (38-126); Aspartate Amino Transferase 48 U/L (17-59); Bilirubin,Total 2.5 mg/dl (0.2-1.3); Calcium 8.9 mg/dl (8.4-10.2); Carbon Dioxide 28 mmol/L (22.0-30.0); Creatinine Clearance Estimated 47 mL/min (50-200); Estimated Glomerular Filt Rate 24 ml/min (>60); GFR (African American) 29 ML/MIN (>60); Globulin 2.8 g/dL (1.3-3.2); Glucose 198 mg/dl (74-100); Sodium 140 mmol/L (136-145); Total Protein,Serum 6.1 g/dl (6.3-8.2)
[2024-03-24 17:01] LABS: Troponin I 0.06 ng/ml (0.00-0.034)
--- NOTE | 2024-03-24 17:12 | CT_ITS ---
PROCEDURE INFORMATION: Exam: CTA Chest With Contrast Exam date and time: 03/24/2024 5:41 PM Age: 58 years old Clinical indication: Shortness of breath; Additional info: SOA TECHNIQUE: Imaging protocol: Computed tomographic angiography of the chest with contrast. Exam focused on the arteries. 3D rendering (Not supervised by radiologist): MIP and/or 3D reconstructed images were created by the technologist. Radiation optimization: All CT scans at this facility use at least one of these dose optimization techniques: automated exposure control; mA and/or kV adjustment per patient size (includes targeted exams where dose is matched to clinical indication); or iterative reconstruction. Contrast material: ISO 370; Contrast volume: 70 ml; Contrast route: INTRAVENOUS (IV); COMPARISON: CR XR CHEST PORTABLE 03/24/2024 4:24 PM FINDINGS: Tubes, catheters and devices: Multi lead pacer device which appears satisfactory in position. Pulmonary arteries: Evaluation of the segmental pulmonary artery branches is limited by excessive motion artifact and cannot be evaluated for subtle acute emboli. Central pulmonary arteries are free of emboli. Aorta: Aorta not well opacified as study was protocoled to assess the pulmonary arteries. No evidence of aneurysm. I can not assess for dissection. Atherosclerotic changes noted. Lungs: Bilateral interlobular septal thickening compatible with interstitial edema. Mild bilateral atelectatic changes. No evidence of consolidation. Pleural spaces: Moderate right-sided posterior layering effusion and small left posterior layering effusion noted. Heart: Cardiomegaly. Small pericardial effusion noted laterally on the right measuring 11 mm. Coronary arteries: Extensive coronary artery calcifications suggesting coronary artery disease. Lymph nodes: Unremarkable. No enlarged lymph nodes. Liver: Mild nodular contour of the liver suggesting the possibility of cirrhosis. Intraperitoneal space: Moderate amounts of ascites noted in the upper abdomen around the liver and spleen. Bones/joints: Unremarkable. No acute fracture. Soft tissues: Diffuse body wall edema compatible with anasarca. IMPRESSION: 1. No evident PE with above limitation. 2. Bilateral pleural effusions [id number]. Associated interstitial edema. 3. Cardiomegaly. Small right-sided pericardial effusion. 4. Nodular liver suggesting cirrhosis. 5. Moderate upper abdomen free fluid. Anasarca changes. 6. Extensive coronary artery calcifications suggesting coronary artery disease.
--- NOTE | 2024-03-24 17:42 | HMH.ITSTN ---
GFR completion/results were overrode for the use of contrast media by the Physician on a risk vs. benefit situation with this patient.
--- NOTE | 2024-03-24 17:46 | PC.NURSE ---
PT RETURNED FROM RADIOLOGY
[2024-03-24] MEDS: SODIUM CHLORIDE 0.9% 10ML SYR (RAD ONLY) 10 ML IV (17:47)
[2024-03-24] MEDS: 0.9 % SODIUM CHLORIDE 50 ML VIAL IV ×2 (17:47→21:04)
[2024-03-24] MEDS: IOPAMIDOL-370 (76%);100ML BOTTLE 70 ML IV (17:47)
[2024-03-24] MEDS: MAGNESIUM SULFATE IN WATER 2 GM/50 ML PIGGYBACK IV (18:11)
[2024-03-24 18:44] LABS: Procalcitonin 0.163 ng/mL (0.0-2.0)
--- NOTE | 2024-03-24 18:54 | PC.NURSE ---
HOUSE AWARE OF ADMISSION
[2024-03-24] MEDS: BUMETANIDE 1MG/4ML VIAL 2 MG IV (19:26)
--- NOTE | 2024-03-24 19:44 | CT_ITS ---
PROCEDURE INFORMATION: Exam: CTA Abdominal Aorta and Bilateral Lower Extremities (Run-off) With Contrast Exam date and time: 03/24/2024 8:44 PM Age: 58 years old Clinical indication: Other: Discolored rle TECHNIQUE: Imaging protocol: Computed tomographic angiography of the of the abdominal aorta, pelvis and bilateral lower extremities with contrast. 3D rendering (Not supervised by radiologist): MIP and/or 3D reconstructed images were created by the technologist. Radiation optimization: All CT scans at this facility use at least one of these dose optimization techniques: automated exposure control; mA and/or kV adjustment per patient size (includes targeted exams where dose is matched to clinical indication); or iterative reconstruction. Contrast material: ISO 370; Contrast volume: 120 ml; Contrast route: INTRAVENOUS (IV); COMPARISON: 1. US ARTERIAL LOWER EXT REST 02/28/2024 7:[address] ANGIO CHEST PE PROTOCOL 03/24/2024 5:41 PM FINDINGS: Pulmonary arteries: VASCULAR FINDINGS: Aorta: Ryeozrpd-gz-itwara atherosclerotic changes of the aorta. No significant stenosis. No aneurysm. Celiac trunk and mesenteric arteries: Moderate atherosclerotic narrowing of the origins of the celiac artery and SMA. Renal arteries: Severe right and qufzvohs-em-qtabyk left atherosclerotic narrowing of the origins of the renal arteries. Right iliac arteries: Qwwb-rt-rneyyxax multifocal atherosclerotic narrowing of the right common iliac artery and moderate narrowing of the proximal right internal iliac artery. No significant narrowing of the external iliac artery. Right femoral/popliteal arteries: Moderate focal narrowing of the distal superficial femoral artery in the distal thigh at the level of the adductor canal with emax-cm-auysmxsd multifocal more proximal narrowing. Jpexeoyz-ls-rjkaem narrowing of portions of the right internal femoral artery a few cm beyond the origin without occlusion. Qwpuuwfs-qu-xntcjv narrowing of the mid to distal popliteal artery. Right infrapopliteal arteries: Peroneal artery is occluded in the mid calf level but appears to reconstitute distally above the ankle with runoff into the foot. Multifocal ssom-tx-sbxxlclu moderate narrowing of the anterior tibial and posterior tibial arteries without occlusion with runoff into the feet with patent dorsal pedal and plantar arch. Left iliac arteries: Cwimizhw-ys-xbvibo narrowing of the distal left common iliac artery and the proximal left internal iliac artery. Cmoi-gu-uoklcwxn multifocal narrowing of the external iliac artery. Left femoral/popliteal arteries: Moderate narrowing of the left common femoral artery and kovsjafv-ib-eftbww narrowing of the proximal few cm of the left internal iliac artery. Severe narrowing of the proximal left superficial femoral artery with occlusion noted 8 cm beyond the origin of the superficial femoral artery. This artery does not clearly reconstitute by the level of the amputated stump. Blood flow below the occlusion levels presumably supplied by numerous collaterals arising off of the internal iliac artery. Left infrapopliteal arteries: Not assessed due to above the knee amputation. Pleural spaces: Moderate right and small left pleural effusions and associated bibasilar interstitial edema and cardiomegaly again noted. Reflux of contrast into the hepatic veins compatible with elevated right heart pressures. Liver: Mild nodular contour of the liver suggesting possible cirrhosis redemonstrated. Gallbladder and biliary ducts: Status post cholecystectomy. No evident bile duct dilatation allowing for prior cholecystectomy. Pancreas: Unremarkable. No mass. No ductal dilation. Spleen: Normal. No splenomegaly. Adrenal glands: Normal. No mass. Kidneys and ureters: Normal. No mass. Stomach and bowel: Mild wall thickening of the proximal colon from the cecum through the mid transverse colon that may reflect hepatic colopathy and might also be accentuated by incomplete distension. GI tract structures otherwise unremarkable with no evident wall thickening allowing for incomplete distention. Appendix: No evidence of appendicitis. Urinary bladder: Unremarkable. No mass. Reproductive: Unremarkable as visualized. Intraperitoneal space: No free air or pneumatosis. Lymph nodes: Mildly enlarged right common femoral nodes largest measuring 12 mm in short axis. Additional mildly enlarged right inguinal nodes. Bones/joints: Diffuse severe edema throughout the right lower extremity extending to the foot and throughout the left lower extremity extending to the amputation stump in the mid to distal femur level that is also presumably related to anasarca changes. Soft tissues: Diffuse severe body wall edema and edema of the intra-abdominal fat tissues compatible with anasarca. IMPRESSION: 1. Extensive atherosclerotic changes as detailed above under vascular findings. Multifocal narrowing of the intra-abdominal vessels most pronounced involving the renal arteries. 2. Multifocal narrowing of the right lower extremity most pronounced in the popliteal region in the peroneal artery with occlusion of the peroneal artery with reconstitution distally. Evidence for three-vessel runoff into the right foot. 3. Multifocal narrowing of the left lower extremity most pronounced involving the left internal iliac artery and superficial femoral artery which is occluded. 4. Severe anasarca changes as above. 5. Bilateral pleural effusions twmzf-tfkxovc-kxsv-left. Associated interstitial edema in the lung bases. Cardiomegaly. Reflux of contrast into the hepatic veins compatible with elevated right heart pressures. 6. Colonic wall thickening may be accentuated by nondistention but might also reflect hepatic colopathy. Colitis not entirely excluded in the proper clinical setting. 7. Nonspecific mild right common femoral and inguinal lymphadenopathy. 8. Cirrhosis changes.
[2024-03-24 20:19] LABS: HIV Combo NEGATIVE (Negative)
--- NOTE | 2024-03-24 20:23 | EXP.EVENT.NO ---
Received a phone call to come down to evaluate admitting the patient., He is well-known to me as I took care of him last time he was in the hospital.. Patient lives in apartment by himself. He said he did have home health after his last discharge. But by note has continued to gain weight.. Patient has had left leg amputated due to peripheral vascular disease/diabetes mellitus. Came down to see the patient to see about admitting him. The patient was sitting up with his legs down noting that the lower leg from just below the knee is extremely red and swollen the top of the foot bottom of the foot has 3+ edema. Noting some clear drainage from around the nailbed of the great toe. And that most of the toe and half of the foot was purple. The foot does improve slightly if the patient will elevate it to the bed not having to hang down as far as the color. The patient is not reliable not to let the leg hanging down as with his respiratory condition he likes to sit up to breathe. Brought these evaluations to Dr. Duke conferred with the ER doctor checked with this. Due to the fact we do not have the right personnel here over holidays until Wednesday or if there is no vascular flow. The ER provider has ordered the proper scan to evaluate blood flow into the distal foot and ankle.. Patient was unsure about this he just wanted to be admitted but explained that if that he had no blood flow to the foot if it was not opened up that he would probably lose his other leg. He has agreed to have the scan done to evaluate whether or not vascularization is required before we would admit him here. If it is required he would need to be transferred. Have consulted with both of the providers in the ER about this. They will let me know the results of the scan and if no revascularization is immediately needed we will admit the patient to the floor if it is needed he will need to be transferred Thank you very much Kg JIMENEZ
[2024-03-24 20:36] LABS: NT Pro Brain Natriuretic Pep. 63700 pg/mL (0-125)
[2024-03-24 20:40] LABS: Creatine Kinase 179 U/L (55-170)
[2024-03-24 20:50] LABS: Lactic Acid 2.3 mmol/L (0.7-2.1)
[2024-03-24] MEDS: IOPAMIDOL-370 (76%);100ML BOTTLE 120 ML IV (21:04)
[2024-03-24] MEDS: RINGERS SOLUTION,LACTATED 500 ML 250 ML IV (21:32)
[2024-03-24 22:11] VITALS: PULSE 106; PULSE 107
[2024-03-24] MEDS: ALBUTEROL 0.083% 2.5 MG/3 ML NEB IH (22:11)
[2024-03-24 22:26] LABS: Troponin I 0.06 ng/ml (0.00-0.034)
[2024-03-24] MEDS: LORazepam 2MG/ML VIAL 0.25 MG IV (23:07)
--- NOTE | 2024-03-24 23:52 | PC.NURSE ---
Report called to JAME Trevizo
[2024-03-25] VITALS (9 sets, daily range): BP systolic 136–159; BP diastolic 64–102; PULSE 76–107; RESP 16–20; TEMP 36.4–37.6; O2SAT 94–100; BMI 29.0
[2024-03-25 00:17] LABS: Reflex Lactic Add Lactic Reflex
[2024-03-25 01:14] LABS: Lactic Acid Follow Up (RFLX 1) 3.3 mmol/L (0.7-2.1)
[2024-03-25] MEDS: GABAPENTIN 300MG CAPSULE 300 MG PO ×2 (01:56→20:41)
--- NOTE | 2024-03-25 02:27 | P.HP_ITS ---
History of Present Illness *Admission Date: 03/24/24 *Reason for visit:: Shortness of breath required oxygen dependency swelling in lower leg *History of present illness: This patient that is known to me as I took care of him last month., He lives alone severe diabetes O2 dependent.. Notable for left leg amputation above the knee. New since last time I seen him he states he had a pacer placed approximately 2 weeks ago.. Other problems noting that he is gaining several kilograms of weight around 20. That his right leg extremely edematous especially but not all of the knee.. When I came in to examine him he had the leg hanging down and actually the distal part of the foot and the toes were blue. Also clear drainage from around the nailbed of the great toe. Rest showing significant peripheral or vascular disease versus early cellulitis of the lower extremity. Was concerned about blood flow the foot as did not have providers here to be able to see him before Wednesday or of next week. I do feel there is a real possibility that this lower right extremity may require amputation in the near future, CT scan with blood flow shows that he does have flow to the foot there was some blockage but showing peripheral vascular development allowing backflow to certain areas, for this reason feeling that we would not lose the limb immediately decided was time to go ahead and admit the patient., Was given Bumex in the ER 1 dose. Of 2 mg this will be repeated once he gets to the floor and eventually set up on a possible drip. Also will get case management and licensed clinical social worker involved. The patient is not able to get to his primary care provider due to swelling of his left extremity above-knee amputation cannot put his prosthesis on and thus cannot get to the car to drive to his primary care to be cared for .., Patient is totally adamant against not going to long-term care/rehab as he will afraid that he would be unable to pay his rent and utilities and not have a place to live. He did note he had home health after he went home from the hospital. Presently patient is stable., ,Noting need to be able to get some of the fluid off from abdomen lungs and especially the right leg noting that Bumex 2 mg in the, ER had some good results wanting to start drip but unsure at this point in time how much diuresis he can tolerate., So we will just repeat Bumex to IV at this time and monitor.. This is also due to his chronic kidney injury BUN up in the high 50s creatinine 2.8 also increased lactate troponin as stable at 0.06. [facility] Disclaimer: The information contained in this section may have been updated after the patient was seen, as this information can be updated by other users. 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 (Reviewed 03/24/24 @ 18:58 by Adelaida Valdovinos ([facility]), LOCOMOTIVE ELECTRICIAN) Lymphedema of right lower extremity Onychodystrophy Thoracic aneurysm without mention of rupture LV dysfunction Ischemic cardiomyopathy Acute blood loss anemia HFrEF (heart failure with reduced ejection fraction) Peripheral arterial disease Stenosis of carotid artery Atypical angina Hyperlipidemia CAD in [place] artery Asthma Diabetes mellitus, type 2 Congestive heart failure Above knee amputation of left lower extremity History of left heart catheterization ([facility]) Diabetes mellitus Hypertension COPD (chronic obstructive pulmonary disease) Surgical History (Reviewed 03/24/24 @ 18:58 by Adelaida Valdovinos ([facility]), LOCOMOTIVE ELECTRICIAN) Stented coronary artery Status post above-knee amputation of left lower extremity History of cholecystectomy Family History (Reviewed 03/24/24 @ 18:58 by Adelaida Valdovinos ([facility]), LOCOMOTIVE ELECTRICIAN) Family history of cancer Social History (Updated 03/25/24 @ 01:05 by Sirisha Jacques RN) Smoking Status: Former smoker tobacco type: cigarettes packs per day: 2 alcohol intake: never substance use type: denies use current occupational status: disabled Travel in the last 8 weeks: None housing: house current occupational exposures/hazards: No Have you lived/traveled outside [place] in past 30 days?: No Contact w/someone who lives/traveled outside [place] past 30 days?: No Exposure to someone with infectious disease in past 14 days?: No Do you have a fever (greater than 100.4 F or 38 C)?: No Have you tested positive for COVID-19: No Exposed to someone with COVID-19 in past 14 days?: No Do you have a sore throat?: No Do you have a cough?: No Do you have any weakness?: No Are you experiencing any nausea/vomitting?: No Do you have any diarrhea?: No Are you experiencing any unusual bleeding?: No Do you have any muscle aches/pain?: No Do you have any abdominal pain?: No Are you experiencing loss of taste or smell?: No Other 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 Have you received the Flu Vaccine for this season: Yes Have you received the Pneumonia Vaccine: Yes Review of Systems Review of Systems Review of systems:: pertinent systems reviewed and negative unless documented below Review of systems (narrative): Patient able to sit on the side of the bed have good conversations showing no sign of distress in the emergency room, but noting definite increase in respiratory rate while he is talking, also oxygen dependent Constitutional Constitutional: Reports as per HPI and Reports weight gain Eyes Eyes: Reports as per HPI ENT Ears, Nose, Mouth, and Throat: Reports as per HPI and Reports disequilibrium *Cardiovascular Cardiovascular: Reports as per HPI, Reports chest pain at rest, Reports dyspnea and Reports dyspnea on exertion Comments: Patient with new pacemaker placed approximately 2 weeks ago *Respiratory Respiratory: Reports dyspnea and Reports dyspnea on exertion *Gastrointestinal Gastrointestinal: Reports as per HPI and Reports abdominal pain *Genitourinary Genitourinary: Reports as per HPI *Musculoskeletal Musculoskeletal: Reports abnormal gait (Left leg amputated above the knee) Integumentary/Breasts Skin/Breast: Reports as per HPI *Neurologic Neurologic: Reports abnormal gait (Left leg amputated above the knee) and Reports disequilibrium Psychiatric Psychiatric: Reports as per HPI Endocrine Endocrine: Reports as per HPI Hematologic/Lymphatic Hematologic/Lymphatic: Reports as per HPI Allergic/Immunologic Allergic/Immunologic: Reports as per HPI Meds Home Medications and Allergies Home Medications ?Medication ?Instructions ?Recorded ?Confirmed ?Type umeclidinium 62.5 mcg/actuation 1 inh inhalation DAILY 04/06/23 03/25/24 History blister powder for inhalation (Incruse Ellipta) mometasone-formoterol HFA 100 2 inh inhalation BID 02/23/24 03/25/24 History mcg-5 mcg/actuation aerosol inhaler (Dulera) metoprolol succinate 50 mg 50 mg PO DAILY 02/24/24 03/25/24 History tablet,extended release 24 hr semaglutide 0.25 mg or 0.5 mg (2 0.25 mg SQ WEEKLY 02/24/24 03/25/24 History mg/3 mL) subcutaneous pen injector (Ozempic) aspirin 81 mg tablet,delayed 81 mg PO DAILY 30 days #30 tabs 02/26/24 03/25/24 Rx release atorvastatin 80 mg tablet 80 mg PO HS 30 days #30 tabs 02/26/24 03/25/24 Rx hydralazine 25 mg tablet 50 mg (2 x 25 mg) PO TID 30 days 02/26/24 03/25/24 Rx #180 tabs isosorbide dinitrate 10 mg tablet 20 mg (2 x 10 mg) PO TID 30 days 02/26/24 03/25/24 Rx #180 tabs bumetanide 2 mg tablet 2 mg PO BID #60 tabs 03/02/24 03/25/24 Rx gabapentin 300 mg capsule 300 mg PO HS 30 days #30 caps 03/02/24 03/25/24 Rx insulin glargine 100 unit/mL (3 20 unit (0.2 mL) SQ HS 30 days #6 03/02/24 03/25/24 Rx mL) subcutaneous pen (Basaglar mL KwikPen U-100 Insulin) sodium bicarbonate 650 mg tablet 650 mg PO DAILY 30 days #30 tabs 03/02/24 03/25/24 Rx clopidogrel 75 mg tablet 75 mg PO DAILY 03/25/24 03/25/24 History New Prescriptions to Start Prescriptions: Allergies Allergy/AdvReac Type Severity Reaction Status Date / Time Penicillins Allergy Severe Anaphylaxis Verified 03/25/24 00:40 Exam Data for Last 24 hours Vital signs and Labs for Last 24 Hours: Temp Pulse Resp BP Pulse Ox O2 Del Method O2 Flow Rate 98.9 F 107 H 20 159/98 H 100 Nasal Cannula 3 03/25/24 00:40 03/25/24 00:40 03/25/24 00:40 03/25/24 00:40 03/25/24 00:40 03/25/24 00:40 03/25/24 00:40 Laboratory Results - last 24 hr 03/24/24 16:00: WBC 5.0, RBC 4.24 L, Hgb 11.2 L, Hct 36.7 L, MCV 86.6, MCH 26.4 L, MCHC 30.5 L, RDW 17.7 H, Plt Count 217, MPV 11.0 H, Neut % (Auto) 70.1, Lymph % (Auto) 19.0, [place] % (Auto) 8.5, Eos % (Auto) 1.4, Baso % (Auto) 0.8, Neut # (Auto) 3.5, Lymph # (Auto) 0.9, [place] # (Auto) 0.4, Eos # (Auto) 0.1, Baso # (Auto) 0.0, D-Dimer 2.39 H, Sodium 140, Potassium 5.0, Chloride 105, Carbon Dioxide 28, Anion Gap 12.0, BUN 55 H, Creatinine 2.80 H, Estimated Creat Clear 47, Estimated GFR 24 L, Est GFR ( Amer) 29 L, Glucose 198 H, Calcium 8.9, Total Bilirubin 2.5 H, AST 48, ALT 18, Alkaline Phosphatase 353 H, Troponin I 0.06 H, NT-Pro-B Natriuret Pep 83530 H, Total Protein 6.1 L, Albumin 3.3 L, Globulin 2.8, Albumin/Globulin Ratio 1.2, Procalcitonin 0.163, HIV Ag/Ab Combo Qual Negative 03/24/24 16:06: VBG pH 7.32, VBG pCO2 47.7, VBG pO2 35.3, VBG HCO3 24.0, VBG Total CO2 25.4, VBG O2 Saturation 60.5, VBG Base Excess -2.1, VBG Lactic Acid 2.0 03/24/24 20:10: Lactate 2.3 H, Total Creatine Kinase 179 H 03/24/24 22:00: Troponin I 0.06 H 03/25/24 00:35: Lactate 3.3 H I & O for Last 24 hours: Intake & Output 03/22/24 03/23/24 03/24/24 03/25/24 05:59 05:59 05:59 05:59 Output Total 120 / 120 Balance -120 / -120 Weight 214 lb 2 oz Radiology Reports for the Last 24 Hours: Reviewed CT scans with ER physician., Being able to see positive circulation to the foot post posterior tibial and tibial arteries feel that we can the patient as there is no immediate need for surgery Patient shows ascites with anasarca of the abdominal wall thickened moderate to severe vessel narrowing on abdominal CT. Chest CT showing cardiomegaly and bilateral atelectasis a moderate right side effusion with a smaller left-sided effusion significant coronary artery disease calcification with ascites in the upper abdominal area also with the body wall edema noted is anasarca Constitutional Constitutional: mild distress, obese, chronically ill appearing and cooperative Comments: At present patient states he is not having any chest pain sitting well and fairly comfortable in the ER while I do his interview and assessment *Routine HEENT Exam Head: Present normocephalic and atraumatic Eye: Present EOMI, PERRL and normal accommodation ENT: Present mucous membranes moist and nares patent Comments: Patient denies any issues with hearing or vision, states he is able to swallow well without any difficulty *Routine Neck Exam Neck: Present supple and full ROM Routine Chest/Breast/Axilla Exam Comments: There was no chest wall tenderness or injury found no signs of skin lesion, able to take a deep breath without any discomfort *Routine Respiratory Exam Respiratory: Present accessory muscle use, decreased breath sounds, prolonged expiratory phase, diminished air movement, normal respiratory effort and able to speak in complete sentences Comments: Patient's respiratory rate is close to 30. Shallow he uses his abdomen to breathe mostly but is in no signs of distress and is able to talk to me during the exam without having to pause *Routine Cardiovascular Exam Cardiovascular: Present RRR Comments: Pacemaker is noted *Routine Abdominal Exam Abdominal: Present soft, distended and obese Comments: He has a very rounded abdomen, but no significant sign of hernia and our discomfort upon palpation only did moderate palpation nothing deep. *Routine Rectal Exam Rectal:: deferred *Routine Genitalia Exam Genitalia:: deferred *Routine Extremities Exam Extremities: Present cyanosis Comments: Left leg amputated above the knee. Skin color relatively normal. Does burke well, right leg to the knee is darkened in skin color but there is no sign of breakdown does appear to have good blanching that there are blood flow to the knee. But 1 inch below the knee the calf begins to swell there is significant redness of either significant venous stasis versus early cellulitis all the way down to the foot. If the patient hangs his foot down for any length of time actually about 3 inches before his toes become quite blue. Noting a clear drai nage from the right great toenail area. Generalized redness with some scabbing but no significant open ulcer is Asians noted on the foot. But looks at any time because of the significant amount of edema that the skin could actually just break open. Routine Back/Spine/Pelvis Exam Back/Spine: Present full ROM Comments: Patient is able to sit up and move roll does not appear to have any back pain at this time. No skin breakdown. Due to his position on the ER stretcher and clothing and the fact that he denied he had any skin breakdown to scrotum or buttocks area. I did not disrobe him in the ER, *Routine Skin Exam Skin: Present cyanosis, erythema, warm and cracked Comments: As noted patient has generalized edema some found in the abdomen and the abdominal tissue. Buttocks and upper thighs relatively normal but right lower extremity going from 2+ to 4+ edema., Also noting clear drainage from great toe with no obvious sign of ulcer, just general leaking. *Routine Neurological Exam Neurological: Present alert, oriented X3, CN II-XII intact, sensory deficit (Right lower extremity has very little sensation), normal tone, vision grossly intact, hearing grossly intact and normal speech Routine Psychiatric Exam Psychiatric: Present normal affect, normal thought process, cooperative, good insight and good judgment Comments: Patient is aware of his situation, noting he is a stance that he does not want to leave his apartment though.. H&P: Result Impressions 1. COPD D exacerbation with dyspnea 2, chest pain with significant vascular disease throughout entire body. 3. Right lower leg edema with early cellulitis versus peripheral vascular disease poor circulation. CT scan showing there is blood flow, but 4+ edema keeps a person from being able to evaluate whether there is a pulse. Noting that foot is blue if he lets it hang down 1 putting it up the color does improve 4. Self-care deficit related to edema not being able to get his artificial limb on does not been able to see his primary care provider he lives alone and is reaching a time he is not able to care for himself even with home health.. But he does not want anything to do with leaving his apartment and losing it and not being able to take care of the rent are the utility payments Imaging and Cardiology CT scan - chest: Status: image reviewed by me Additional comments: Cardiomegaly, with pleural effusion right greater than left., Anasarca noted in the tissue of the upper abdomen with ascites. Question early cirrhosis CT scan - abdomen: Status: image reviewed by me Additional comments: As noted significant vascular disease with calcification throughout most of the body anywhere from moderate to severe in the right lower extremity but showing that there is blood flow in the posterior and tibial arteries to the foot., Noting significant edema to the lower extremity. Assessment and Plan *Assessment and plan (1) Chronic respiratory failure: Status: Acute Category: Medical Code(s): J96.10 - Chronic respiratory failure, unspecified whether with hypoxia or hypercapnia (2) Acute CHF (congestive heart failure): Status: Acute Category: Medical Code(s): I50.9 - Heart failure, unspecified (3) PVD (peripheral vascular disease) with claudication: Status: Acute Category: Medical Code(s): I73.9 - Peripheral vascular disease, unspecified (4) CKD stage 4 due to type 2 diabetes mellitus: Status: Acute Category: Medical Code(s): E11.22 - Type 2 diabetes mellitus with diabetic chronic kidney disease; N18.4 - Chronic kidney disease, stage 4 (severe) (5) Pleural effusion: Status: Acute Category: Medical Code(s): J90 - Pleural effusion, not elsewhere classified (6) Self-care deficit: Status: Acute Category: Medical Code(s): Z78.9 - Other specified health status (7) Aortic stenosis, moderate: Status: Acute Category: Medical Code(s): I35.0 - Nonrheumatic aortic (valve) stenosis (8) LV dysfunction: Status: Acute Category: Medical Code(s): I51.9 - Heart disease, unspecified (9) Ischemic cardiomyopathy: Status: Acute Category: Medical Code(s): I25.5 - Ischemic cardiomyopathy Plan 1. For pleural effusion and increased oxygen needs for respiratory status., Patient was given Bumex in the emergency room IV, I will also repeat that on the floor this morning to see how it works and then potentially starting a Bumex drip. , Moving cautiously at this time as far as diuresis even though the patient really needs it to protect the lungs and the leg. Unsure cardiovascular nevarez with his moderate to severe arterial facets and cardiomegaly that this may cause this problem so moving slowly. 2. O2 deficit. Patient will be kept on breathing treatments also being given supplemental oxygen to keep oxygen saturations above 93%, BiPAP or CPAP not needed at this point in time. Patient also received antibiotics at this time potential pneumonia versus other infection question cellulitis lower extremity. Noted increased lactate on labs. Physical therapy order in for wound evaluation of lower extremity as the potential for skin breakdown and decubitus is quite evident. 3. Chest pain. Slightly elevated troponins. Will consult cardiology also consult pulmonology. , . 4, self-care deficit related to the amputation not being able to get out of the house to be able to get the primary care to monitor and treat/plan how to care for this patient at home,. Will do case management, this will be to set for discharge planning since the patient will probably refuse to go to rehab or long-term care.. I have talked to him about the benefit of even short-term rehab but he is afraid that he will lose the place he lives and or have utilities shut off if he is not there to get them paid for. Rounded on patient after nurse practitioner. Personally examined and interviewed patient. Agree with exam findings and care plan as documented. Patient presented with worsening decompensation of heart failure, severe exacerbation. Initiated on diuretics, monitoring for toxicity given CKD 4. Labs reviewed with BNP elevated at 63,000, kidney function abnormal with BUN 55, creatinine 2.8. Glucose elevated 198. Detectable troponin at 0.06, secondary to strain of heart from volume overload. Reviewed CT with runoff of abdomen and lower extremity showing patent arteries, anasarca, ascites, cirrhosis per my review.
[2024-03-25 02:57] LABS: Reflex Lactic (2 hrs) Add Lactic Reflex
--- NOTE | 2024-03-25 03:32 | PC.NURSE ---
0315: Pt. refused repeat lab draw of Lactate level.
[2024-03-25] MEDS: BUMETANIDE 1MG/4ML VIAL 2 MG IV ×2 (03:38→18:35)
--- NOTE | 2024-03-25 05:45 | PC.NURSE ---
0545: Pt. was admitted overnight with CHF, KOKO, fluid overload. Pt. has generalized body edema with pitting edema to right leg. Left leg AKA. Pt. states he was unable to get prosthesis on left leg due to swelling of the stump. Pt. c/o SOB and feelike he can't get air in his lungs. Pt. on O2 3 liters per nasal cannula. Pt. refused lab draw around 0300 for Lactate recheck. Pt. recieved Bumex 2 mg this shift. Pt. c/o unable to sleep. slept in intervals. Pt. states he can't lay flat. Pt. is anxious at thimes. Pt. also wants water, milk, soda or anything to drink. VSS. Personal items and call reyes in reach.
[2024-03-25 07:08] LABS: HCV Ab Non Reactive (Non Reactive)
[2024-03-25 08:23] LABS: Basophils % 0.2 % (0.1-2.0); Hematocrit 35.5 % (42.0-52.0); Hemoglobin 11.2 g/dL (14.1-18.0); Lymphocytes # 0.4 K/mm3 (0.7-4.5); Lymphocytes % 9.5 % (10-50); Mean Corpuscular HGB Conc 31.5 g/dL (31.8-35.4); Mean Corpuscular Hemoglobin 26.8 pg (27.0-31.2); Mean Corpuscular Volume 84.9 fl (80-94); Mean Platelet Volume 11.5 fl (7.4-10.4); Monocytes # 0.1 K/mm3 (0.1-1.0); Neutrophils # 3.5 K/mm3 (1.8-7.8); Neutrophils % 86.8 % (37.0-80.0); Platelet Count 186 K/mm3 (142-424); Red Blood Count 4.18 M/mm3 (4.60-6.20); Red Cell Distribution Width 17.8 % (11.5-17.5)
[2024-03-25 08:29] LABS: MANUAL DIFFERENTIAL MANUAL DIFFERENTIAL (MANUAL DIFF)
[2024-03-25 08:32] LABS: Albumin Level 3.3 g/dl (3.5-5.0); Chloride 98 mmol/L (98-107); Potassium 5.8 mmoL/L (3.5-5.1); Sodium 128 mmol/L (136-145)
[2024-03-25 08:35] LABS: Alanine Aminotransferase 29 U/L (12-78); Albumin/Globulin Ratio 1.2 (1.1-1.8); Alkaline Phosphatase 323 U/L (38-126); Anion Gap 16.8 mEq/L (5-15); Aspartate Amino Transferase 56 U/L (17-59); Bilirubin,Total 2.2 mg/dl (0.2-1.3); Blood Urea Nitrogen 58 mg/dl (9-20); Calcium 8.5 mg/dl (8.4-10.2); Carbon Dioxide 19 mmol/L (22.0-30.0); Creatinine Clearance Estimated 39 mL/min (50-200); Estimated Glomerular Filt Rate 23 ml/min (>60); GFR (African American) 27 ML/MIN (>60); Globulin 2.7 g/dL (1.3-3.2); Glucose 357 mg/dl (74-100); Magnesium 2.1 mg/dl (1.6-2.3)
[2024-03-25 08:36] LABS: Lactic Acid 2.8 mmol/L (0.7-2.1)
[2024-03-25] MEDS: CLOPIDOGREL 75MG TAB 30 MG PO (09:45)
[2024-03-25] MEDS: ASPIRIN EC 81MG TABLET 81 MG PO (09:45)
[2024-03-25] MEDS: BUMETANIDE 10 MG in 0.9 % SODIUM CHLORIDE 60 ML 5 MG IV (09:45)
[2024-03-25] MEDS: METOPROLOL SUCCINATE XL 50MG TABLET 50 MG PO (09:47)
[2024-03-25] MEDS: HYDRALAZINE HCL 25MG TABLET 50 MG PO ×3 (09:47→20:41)
[2024-03-25] MEDS: ISOSORBIDE DINITRATE 20 MG TABLET PO ×3 (09:47→22:23)
[2024-03-25 09:58] LABS: Hypochromasia 1+; Lymphocytes % 7 % (10-50); Monocytes % 1 % (2-9); Neutrophils % 92 % (42-76); Ovalocytes 1+; Platelet Estimate Normal; Total Cells Counted 100
[2024-03-25 11:12] LABS: POC Glucose,Bedside 419 (70-110)
[2024-03-25] MEDS: humaLOG 100 UNITS/ML 10ML VIAL (SSI) SUBCUT ×3 (11:12→20:23)
[2024-03-25 12:20] LABS: Reflex Lactic Add Lactic Reflex
[2024-03-25 15:46] LABS: POC Glucose,Bedside 385 (70-110)
[2024-03-25 16:17] LABS: Chloride 97 mmol/L (98-107); Potassium 5.4 mmoL/L (3.5-5.1); Sodium 129 mmol/L (136-145)
[2024-03-25 16:20] LABS: Anion Gap 16.4 mEq/L (5-15); Blood Urea Nitrogen 62 mg/dl (9-20); Carbon Dioxide 21 mmol/L (22.0-30.0); Creatinine Clearance Estimated 34 mL/min (50-200); Estimated Glomerular Filt Rate 19 ml/min (>60); GFR (African American) 24 ML/MIN (>60)
[2024-03-25 16:21] LABS: Calcium 8.3 mg/dl (8.4-10.2); Glucose 351 mg/dl (74-100)
[2024-03-25 16:23] LABS: Lactic Acid Follow Up (RFLX 1) 3.6 mmol/L (0.7-2.1)
--- NOTE | 2024-03-25 16:58 | PC.NURSE ---
Aox 4, up with assistance times 2, 02-2L nc, 20g L AC bumex gtt increased to 10 ml/ hr per dr. Duke, PT and OT, CM, and Cardiology consulted, pt. uses a urinal.
[2024-03-25 18:05] LABS: Reflex Lactic (2 hrs) Add Lactic Reflex
--- NOTE | 2024-03-25 18:22 | PC.NURSE ---
Pt was told he may need a f/c and he refused MD. aware.
--- NOTE | 2024-03-25 18:37 | PC.NURSE ---
Respiratory called to give patient a breathing treatment.
[2024-03-25 18:55] LABS: Lactic Acid Follow up (RFLX 2) 3.3 mmol/L (0.7-2.1)
[2024-03-25] MEDS: ALBUTEROL 0.083% 2.5 MG/3 ML NEB IH (18:55)
[2024-03-25] MEDS: BUMETANIDE 10 MG in 0.9 % SODIUM CHLORIDE 60 ML IV (19:41)
[2024-03-25 20:18] LABS: POC Glucose,Bedside 320 (70-110)
[2024-03-25] MEDS: INSULIN GLARGINE 100 UNITS/ML 3ML FLEXPEN 30 UNIT SUBCUT (20:24)
--- NOTE | 2024-03-25 20:24 | EXP.ACUTE.PN ---
Subjective *Date: 03/25/24 *Time: 20:24 Interval history: Continues to complain of feeling short of breath. On 3 L today. Denies shraddha chest pain. Anasarca present on exam. Significantly volume overloaded. Having significant response to IV diuretics on rounds, initiated on drip. Concern for difficulty urinating. Discussed Mckenna, patient hesitant. Would benefit to monitor strict output. Medical Exam Vital signs and Labs for Last 24 Hours: Vital Signs Temp Pulse Pulse Resp BP BP Pulse Ox 03/25/24 18:55 87 03/25/24 18:55 85 03/25/24 17:41 03/25/24 16:18 03/25/24 16:00 98 F 76 16 136/64 94 L 03/25/24 13:58 03/25/24 13:00 03/25/24 12:00 98.1 F 77 16 138/80 98 03/25/24 10:23 03/25/24 09:00 03/25/24 08:54 91 H 03/25/24 08:54 91 H 03/25/24 08:54 99 03/25/24 08:00 03/25/24 08:00 97.8 F 94 H 17 149/98 H 94 L 03/25/24 06:48 03/25/24 05:00 03/25/24 03:47 97.6 F 100 H 18 149/99 H 100 03/25/24 03:00 03/25/24 01:00 03/25/24 00:45 03/25/24 00:40 98.9 F 107 H 20 159/98 H 100 03/25/24 00:17 97.8 F 105 H 16 157/102 H 03/24/24 23:55 03/24/24 22:11 107 H 03/24/24 22:11 106 H O2 Del Method O2 Flow Rate 03/25/24 18:55 03/25/24 18:55 03/25/24 17:41 Nasal Cannula 2 03/25/24 16:18 Nasal Cannula 2 03/25/24 16:00 03/25/24 13:58 Nasal Cannula 2 03/25/24 13:00 Nasal Cannula 2 03/25/24 12:00 03/25/24 10:23 Nasal Cannula 2 03/25/24 09:00 Nasal Cannula 2 03/25/24 08:54 03/25/24 08:54 03/25/24 08:54 Nasal Cannula 3 03/25/24 08:00 Nasal Cannula 2 03/25/24 08:00 Room Air 03/25/24 06:48 Nasal Cannula 3 03/25/24 05:00 Nasal Cannula 3 03/25/24 03:47 Nasal Cannula 3 03/25/24 03:00 Nasal Cannula 3 03/25/24 01:00 Nasal Cannula 3 03/25/24 00:45 Nasal Cannula 3 03/25/24 00:40 Nasal Cannula 3 03/25/24 00:17 Nasal Cannula 3 03/24/24 23:55 Nasal Cannula 2 03/24/24 22:11 03/24/24 22:11 Intake and Output 03/25/24 03/25/24 03/25/24 07:59 15:59 23:59 Intake Total 600 / 714.667 114.667 / 714.667 Output Total 340 / 390 50 / 390 Balance -340 / 324.667 600 / 324.667 64.667 / 324.667 Intake: Intake, Oral Amount 600 / 600 Intake, Total IV Amount 114.667 / 114.667 Bumetanide 10 mg In 0.9 % 65 / 65 Sodium Chloride 60 ml @ 10 mls/ hr IV .Q10H [facility] Rx#:[id number] Output: Output, Urine Amount 340 / 390 50 / 390 Other: Number of Unmeasured Voids 0 Number of Bowel Movements 1 Weight 97.125 kg Patient Weight 03/25/24 23:59 Weight 97.125 kg Laboratory Results - last 24 hr 03/24/24 16:00: NT-Pro-B Natriuret Pep 93341 H, Hepatitis C Antibody Non reactive 03/24/24 20:10: Lactate 2.3 H, Total Creatine Kinase 179 H 03/24/24 22:00: Troponin I 0.06 H 03/25/24 00:35: Lactate 3.3 H 03/25/24 08:13: WBC 4.0 L, RBC 4.18 L, Hgb 11.2 L, Hct 35.5 L, MCV 84.9, MCH 26.8 L, MCHC 31.5 L, RDW 17.8 H, Plt Count 186, MPV 11.5 H, Neut % (Auto) 86.8 H, Lymph % (Auto) 9.5 L, [place] % (Auto) 3.0, Eos % (Auto) 0.0 L, Baso % (Auto) 0.2, Neut # (Auto) 3.5, Lymph # (Auto) 0.4 L, [place] # (Auto) 0.1, Eos # (Auto) 0.0, Baso # (Auto) 0.0, Total Counted 100, Neutrophils % (Manual) 92 H, Lymphocytes % (Manual) 7 L, Monocytes % (Manual) 1 L, Platelet Estimate Normal, RBC Morphology Not Reportable, Hypochromasia 1+, Ovalocytes 1+, Sodium 128 L, Potassium 5.8 H, Chloride 98, Carbon Dioxide 19 L, Anion Gap 16.8 H, BUN 58 H, Creatinine 2.90 H, Estimated Creat Clear 39, Estimated GFR 23 L, Est GFR ( Amer) 27 L, Glucose 357 H D, Lactate 2.8 H, Calcium 8.5, Magnesium 2.1, Total Bilirubin 2.2 H, AST 56, ALT 29 D, Alkaline Phosphatase 323 H, Total Protein 6.0 L, Albumin 3.3 L, Globulin 2.7, Albumin/Globulin Ratio 1.2 03/25/24 11:06: POC Glucose 419 H* 03/25/24 15:39: POC Glucose 385 H* 03/25/24 15:50: Sodium 129 L, Potassium 5.4 H, Chloride 97 L, Carbon Dioxide 21 L, Anion Gap 16.4 H, BUN 62 H, Creatinine 3.30 H, Estimated Creat Clear 34, Estimated GFR 19 L*, Est GFR ( Amer) 24 L, Glucose 351 H, Lactate 3.6 H, Calcium 8.3 L 03/25/24 18:25: Lactate 3.3 H 03/25/24 20:05: POC Glucose 320 H* I & O for Labs for Last 24 Hours: Intake & Output 03/22/24 03/23/24 03/24/24 03/25/24 23:59 23:59 23:59 23:59 Intake Total 714.667 / 714.667 Output Total 390 / 390 Balance 324.667 / 324.667 Weight 113.398 kg 97.125 kg Microbiology Reports for the Last 24 Hours: Microbiology 03/24/24 17:35 Blood Blood Culture - Preliminary NO GROWTH AFTER 24 HOURS 03/24/24 18:10 Blood Blood Culture - Preliminary NO GROWTH AFTER 24 HOURS Constitutional: Present moderate distress, chronically ill appearing and cooperative Head: Present atraumatic and normocephalic ENT: Present normal exam Neck: Present normal inspection Respiratory: Present prolonged expiratory phase, crackles (Bases bilateral) and diminished air movement; Absent rhonchi or wheezes Cardiac: Present Reg Rate and Rhythm GI: Present soft, distention and normal bowel sounds; Absent tenderness Extremities: Present normal inspection, full ROM and edema (4+ edema to abdomen, weeping from right leg) Comment:: Left AKA Skin: Present intact; Absent erythema Neuro: Present Grossly Intact, alert, awake and moves all extremities Assessment and Plan *Assessment and plan (1) HFrEF (heart failure with reduced ejection fraction): Status: Acute Category: Medical Code(s): I50.20 - Unspecified systolic (congestive) heart failure (2) Ischemic cardiomyopathy: Status: Acute Category: Medical Code(s): I25.5 - Ischemic cardiomyopathy (3) Peripheral arterial disease: Status: Acute Category: Medical Code(s): I73.9 - Peripheral vascular disease, unspecified (4) Hyperlipidemia: Status: Acute Qualifiers: Hyperlipidemia type: mixed hyperlipidemia Qualified Code(s): E78.2 - Mixed hyperlipidemia Category: Medical Code(s): E78.5 - Hyperlipidemia, unspecified (5) Diabetes mellitus: Status: Acute Qualifiers: Diabetes mellitus type: type 2 Diabetes mellitus halfway insulin use: with halfway use Diabetes mellitus complication status: without complication Qualified Code(s): E11.9 - Type 2 diabetes mellitus without complications; Z79.4 - correction (current) use of insulin Category: Medical Code(s): E11.9 - Type 2 diabetes mellitus without complications (6) COPD (chronic obstructive pulmonary disease): Status: Acute Qualifiers: COPD type: chronic bronchitis Chronic bronchitis type: unspecified Qualified Code(s): J42 - Unspecified chronic bronchitis Category: Medical Code(s): J44.9 - Chronic obstructive pulmonary disease, unspecified (7) Hypertension: Status: Acute Qualifiers: Hypertension type: primary hypertension Qualified Code(s): I10 - Essential (primary) hypertension Category: Medical Code(s): I10 - Essential (primary) hypertension (8) Non-STEMI (non-ST elevated myocardial infarction): Status: Resolved Category: Medical Code(s): I21.4 - Non-ST elevation (NSTEMI) myocardial infarction (9) CKD stage 4 due to type 2 diabetes mellitus: Status: Acute Category: Medical Code(s): E11.22 - Type 2 diabetes mellitus with diabetic chronic kidney disease; N18.4 - Chronic kidney disease, stage 4 (severe) (10) Chronic respiratory failure: Status: Acute Category: Medical Code(s): J96.10 - Chronic respiratory failure, unspecified whether with hypoxia or hypercapnia (11) PVD (peripheral vascular disease) with claudication: Status: Acute Category: Medical Code(s): I73.9 - Peripheral vascular disease, unspecified (12) Pleural effusion: Status: Acute Category: Medical Code(s): J90 - Pleural effusion, not elsewhere classified (13) Self-care deficit: Status: Acute Category: Medical Code(s): Z78.9 - Other specified health status (14) Aortic stenosis, moderate: Status: Acute Category: Medical Code(s): I35.0 - Nonrheumatic aortic (valve) stenosis (15) Anasarca: Status: Acute Category: Medical Code(s): R60.1 - Generalized edema (16) Cirrhosis: Status: Acute Category: Medical Code(s): K74.60 - Unspecified cirrhosis of liver Plan This is a 58-year-old male being admitted for acute on chronic CHF exacerbation, severe volume overload with anasarca. Condition complicated by his poorly controlled diabetes, peripheral vascular disease, CKD 4. Continues to require oxygen, wearing 2-3 L. Very poor response so far to diuresis. Continues to require inpatient management for increased aggressive diuresis. Close monitoring of kidney function and electrolytes. Initiated on Bumex drip. Left cardiology evaluate patient on Wednesday. Necessitating inpatient care. Problems addressed as follows: #Acute on chronic hypoxic respiratory failure HFrEF exacerbation NSTEMI type II CKD stage IV ? History of CAD status post 3 stents in March. ? Continue Bumex 1 mg/h drip. Given additional 2 mg IV. Responded well to Bumex earlier this month. Suspect threshold has just not been hit to improve diuresis. Severe volume overload noted. Patient's weight up at least 10 kg. Globally overloaded with swelling in leg, ascites in abdomen, effusions bilaterally. -Repeat BMP ordered for this afternoon, repeat CBC, CMP, magnesium ordered for the morning. Close monitoring of electrolytes with diuresis, monitoring for toxicity. -Potassium 5.8, magnesium 2.1, sodium 128, likely from hypervolemia. Initiate Lokelma daily for hyperkalemia. - Anticipate bump in kidney function while we aggressively diuresed, anticipate function will improve with better perfusion and improvement in volume status as he is making good urine. ? BNP elevated at 63k on admission - ECHO earlier this month shows LVEF 20% with similar inferior akinesis as March this year, had been LVEF 30% earlier this. Patient does not want LifeVest at this time after extensively discussing risks and benefits. - Continue aspirin, Plavix 75 mg. ? Given patient's advanced CKD stage IV, unable to start NARESH/ARB/ARNI, MRA, or SGLT2i. -Continue hydralazine 50 mg 3 times a day, isosorbide dinitrate 20 mg 3 times a day, metoprolol succinate 50 mg daily #Physical deconditioning ? Have therapy evaluate patient prior to discharge. Previously recommended SNF placement, patient declined to go. Strong concern about his ability to care for himself at home. Type 2 diabetes Diabetic neuropathy -Hemoglobin A1c 7.8 1 month ago; glucose this morning 357 -Increase Lantus to 30 units nightly, continue sliding scale insulin and fingersticks ACHS -SSI for additional glycemic control COPD -Not in acute exacerbation, baseline oxygen 1 to 2 L. Increased oxygen requirement due to volume overload. -DuoNebs as needed, Continue Dulera -Maintain SpO2 greater than 90% -White count normal at 4, hemoglobin 11. HTN HLD -Continue statin, beta-stacy, hydralazine as above CODE STATUS: Full code Surrogate decision maker: Saurabh [phone] Lovenox 30 mg subcu daily
[2024-03-25] MEDS: PANTOPRAZOLE 40MG TABLET 40 MG PO (20:41)
[2024-03-25] MEDS: ATORVASTATIN 40MG TABLET 80 MG PO (20:42)
[2024-03-25] MEDS: LOKELMA 5GM PACKET 10 GM PO (22:23)
[2024-03-26] VITALS (10 sets, daily range): BP systolic 125–253; BP diastolic 74–94; PULSE 76–91; RESP 16–28; TEMP 36.4–36.7; O2SAT 96–100; BMI 30.4
[2024-03-26] MEDS: BUMETANIDE 10 MG in 0.9 % SODIUM CHLORIDE 60 ML IV ×3 (03:20→13:54)
--- NOTE | 2024-03-26 05:39 | PC.NURSE ---
0530: Pt. is alert and orientated x 4. Pt. has been complaining of falling asleep and than being awakened for vital signs or meds, ect. Pt. is on a Bumex drip but has had minimal urine output. Pt. using a urinal. Refused becerra cath earlier yesterday. Pt. continues to have whole body edema. . VSS. Personal items and call reyes in reach.
[2024-03-26 07:03] LABS: POC Glucose,Bedside 111 (70-110)
--- NOTE | 2024-03-26 07:31 | PC.NURSE ---
0655: Patient refused AM labs. He agreed to POC blood glucose. No AM labs obtained.
[2024-03-26] MEDS: CLOPIDOGREL 75MG TAB 75 MG PO (08:42)
[2024-03-26] MEDS: ASPIRIN EC 81MG TABLET 81 MG PO (08:42)
[2024-03-26] MEDS: HYDRALAZINE HCL 25MG TABLET 50 MG PO ×3 (08:42→20:19)
[2024-03-26] MEDS: ISOSORBIDE DINITRATE 20 MG TABLET PO ×2 (08:42→12:08)
[2024-03-26] MEDS: METOPROLOL SUCCINATE XL 50MG TABLET 50 MG PO (08:42)
[2024-03-26] MEDS: LOKELMA 5GM PACKET 10 GM PO (08:43)
[2024-03-26 10:50] LABS: POC Glucose,Bedside 100 (70-110)
[2024-03-26 11:11] LABS: Basophils % 0.2 % (0.1-2.0); Eosinophils # 0.1 K/mm3 (0.0-0.4); Eosinophils % 0.7 % (0.1-12.0); Hematocrit 33.1 % (42.0-52.0); Hemoglobin 10.5 g/dL (14.1-18.0); Lymphocytes # 0.9 K/mm3 (0.7-4.5); Lymphocytes % 10.4 % (10-50); Mean Corpuscular HGB Conc 31.7 g/dL (31.8-35.4); Mean Corpuscular Hemoglobin 26.4 pg (27.0-31.2); Mean Corpuscular Volume 83.2 fl (80-94); Mean Platelet Volume 10.2 fl (7.4-10.4); Monocytes # 0.7 K/mm3 (0.1-1.0); Monocytes % 7.4 % (1.7-9.3); Neutrophils # 7.3 K/mm3 (1.8-7.8); Neutrophils % 81.1 % (37.0-80.0); Platelet Count 199 K/mm3 (142-424); Red Blood Count 3.98 M/mm3 (4.60-6.20); Red Cell Distribution Width 17.9 % (11.5-17.5)
[2024-03-26 11:18] LABS: Albumin Level 3.2 g/dl (3.5-5.0); Chloride 100 mmol/L (98-107); Sodium 130 mmol/L (136-145)
[2024-03-26 11:19] LABS: Potassium 5.3 mmoL/L (3.5-5.1)
[2024-03-26 11:21] LABS: Alanine Aminotransferase 19 U/L (12-78); Anion Gap 11.3 mEq/L (5-15); Aspartate Amino Transferase 43 U/L (17-59); Blood Urea Nitrogen 73 mg/dl (9-20); Carbon Dioxide 24 mmol/L (22.0-30.0); Creatinine Clearance Estimated 31 mL/min (50-200); Estimated Glomerular Filt Rate 17 ml/min (>60); GFR (African American) 20 ML/MIN (>60)
[2024-03-26 11:22] LABS: Albumin/Globulin Ratio 1.3 (1.1-1.8); Alkaline Phosphatase 265 U/L (38-126); Bilirubin,Total 1.6 mg/dl (0.2-1.3); Calcium 8.3 mg/dl (8.4-10.2); Globulin 2.5 g/dL (1.3-3.2); Glucose 81 mg/dl (74-100); Magnesium 2.2 mg/dl (1.6-2.3); Total Protein,Serum 5.7 g/dl (6.3-8.2)
[2024-03-26] MEDS: ALBUTEROL 0.083% 2.5 MG/3 ML NEB IH (12:05)
[2024-03-26] MEDS: SPIRONOLACTONE 25MG TABLET 50 MG PO (13:55)
[2024-03-26] MEDS: BUMETANIDE 1MG/4ML VIAL 2 MG IV (13:55)
--- NOTE | 2024-03-26 14:00 | ECG_ITS ---
APPROVED REPORT Exam: Resting ECG HR:86 bpm ECG Measurements Heart Rate 86 AXES MN 151 P 42 QRSd 120 QRS 43 QT 391 T 244 QTc 435 Conclusion ELECTRONIC VENTRICULAR PACEMAKER ABNORMAL RHYTHM ECG UNCONFIRMED REPORT Electronically signed by : Ajay Ware MD 03/27/2024 08:04:17
--- NOTE | 2024-03-26 14:03 | PC.NURSE ---
. aware patient states he is having some chest discomfort. . placed new orders.
[2024-03-26] MEDS: LORazepam 2MG/ML VIAL 0.5 MG IV ×2 (15:54→20:15)
--- NOTE | 2024-03-26 17:15 | EXP.ACUTE.PN ---
Subjective *Date: 03/26/24 *Time: 17:27 Interval history: Patient reports slight improvement in shortness of breath this morning. States he almost filled the jug with urine however he is only had about 300 cc of output documented overnight. Still requiring 2 to 3 L oxygen for his shortness of breath and hypoxia. Discussed again placing a Mckenna on rounds, patient states he is not having difficulty voiding. Continuing Bumex 1 mg/h drip. Medical Exam Vital signs and Labs for Last 24 Hours: Vital Signs Temp Pulse Pulse Resp BP Pulse Ox O2 Del Method 03/26/24 16:07 Nasal Cannula 03/26/24 16:00 97.9 F 76 16 126/74 96 Nasal Cannula 03/26/24 14:33 Nasal Cannula 03/26/24 12:06 84 03/26/24 12:06 85 03/26/24 12:06 99 Nasal Cannula 03/26/24 12:01 Nasal Cannula 03/26/24 12:00 98.1 F 85 17 125/76 100 Nasal Cannula 03/26/24 09:59 Nasal Cannula 03/26/24 08:06 Nasal Cannula 03/26/24 08:00 97.9 F 88 16 129/90 98 03/26/24 07:58 Nasal Cannula 03/26/24 07:00 Nasal Cannula 03/26/24 05:00 Nasal Cannula 03/26/24 04:00 98.1 F 87 16 134/93 H 100 Nasal Cannula 03/26/24 03:00 Nasal Cannula 03/26/24 01:00 Nasal Cannula 03/26/24 00:00 97.5 F L 86 18 132/77 99 Nasal Cannula 03/25/24 23:00 Nasal Cannula 03/25/24 21:00 Nasal Cannula 03/25/24 20:00 Nasal Cannula 03/25/24 20:00 99.7 F H 89 18 141/84 H 98 Nasal Cannula 03/25/24 18:55 87 03/25/24 18:55 85 03/25/24 17:41 Nasal Cannula O2 Flow Rate FiO2 03/26/24 16:07 2 03/26/24 16:00 03/26/24 14:33 2 03/26/24 12:06 03/26/24 12:06 03/26/24 12:06 2 03/26/24 12:01 2 03/26/24 12:00 03/26/24 09:59 2 03/26/24 08:06 3 03/26/24 08:00 03/26/24 07:58 3 03/26/24 07:00 3 03/26/24 05:00 3 03/26/24 04:00 3 03/26/24 03:00 3 03/26/24 01:00 3 03/26/24 00:00 2 03/25/24 23:00 3 03/25/24 21:00 3 03/25/24 20:00 3 03/25/24 20:00 2 03/25/24 18:55 03/25/24 18:55 03/25/24 17:41 2 Intake and Output 03/26/24 03/26/24 03/26/24 07:59 15:59 23:59 Intake Total 0.167 / 540.167 540 / 540.167 Output Total 200 / 425 225 / 425 Balance -199.833 / 115.167 315 / 115.167 Intake: Intake, Oral Amount 360 / 360 Intake, Total IV Amount 0.167 / 180.167 180 / 180.167 Bumetanide 10 mg In 0.9 % 80 / 80 Sodium Chloride 60 ml @ 10 mls/ hr IV .Q10H [facility] Rx#:[id number] Output: Output, Urine Amount 200 / 425 225 / 425 Other: Number of Unmeasured Voids 0 Weight 102.149 kg Patient Weight 03/26/24 23:59 Weight 102.149 kg Laboratory Results - last 24 hr 03/25/24 18:25: Lactate 3.3 H 03/25/24 20:05: POC Glucose 320 H* 03/26/24 06:53: POC Glucose 111 H 03/26/24 10:43: POC Glucose 100 03/26/24 11:00: WBC 9.0 D, RBC 3.98 L, Hgb 10.5 L, Hct 33.1 L, MCV 83.2, MCH 26.4 L, MCHC 31.7 L, RDW 17.9 H, Plt Count 199, MPV 10.2, Neut % (Auto) 81.1 H, Lymph % (Auto) 10.4, [place] % (Auto) 7.4, Eos % (Auto) 0.7, Baso % (Auto) 0.2, Neut # (Auto) 7.3, Lymph # (Auto) 0.9, [place] # (Auto) 0.7, Eos # (Auto) 0.1, Baso # (Auto) 0.0, Sodium 130 L, Potassium 5.3 H, Chloride 100, Carbon Dioxide 24, Anion Gap 11.3, BUN 73 H, Creatinine 3.80 H, Estimated Creat Clear 31, Estimated GFR 17 L*, Est GFR ( Amer) 20 L, Glucose 81 D, Calcium 8.3 L, Magnesium 2.2, Total Bilirubin 1.6 H, AST 43, ALT 19 D, Alkaline Phosphatase 265 H, Total Protein 5.7 L, Albumin 3.2 L, Globulin 2.5, Albumin/Globulin Ratio 1.3 I & O for Labs for Last 24 Hours: Intake & Output 03/23/24 03/24/24 03/25/24 03/26/24 23:59 23:59 23:59 23:59 Intake Total 743.500 / 743.500 540.167 / 540.167 Output Total 490 / 490 425 / 425 Balance 253.500 / 253.500 115.167 / 115.167 Weight 113.398 kg 97.125 kg 102.149 kg Microbiology Reports for the Last 24 Hours: Microbiology 03/24/24 17:35 Blood Blood Culture - Preliminary NO GROWTH AFTER 24 HOURS 03/24/24 18:10 Blood Blood Culture - Preliminary NO GROWTH AFTER 24 HOURS Constitutional: Present mild distress, chronically ill appearing and cooperative Head: Present atraumatic and normocephalic ENT: Present normal exam Neck: Present normal inspection Respiratory: Present prolonged expiratory phase, crackles (Bases bilateral) and diminished air movement; Absent rhonchi or wheezes Cardiac: Present Reg Rate and Rhythm GI: Present soft, distention and normal bowel sounds; Absent tenderness Extremities: Present normal inspection, full ROM and edema (4+ edema to abdomen, weeping from right leg) Comment:: Left AKA Skin: Present intact; Absent erythema Neuro: Present Grossly Intact, alert, awake and moves all extremities Assessment and Plan *Assessment and plan (1) HFrEF (heart failure with reduced ejection fraction): Status: Acute Category: Medical Code(s): I50.20 - Unspecified systolic (congestive) heart failure (2) Ischemic cardiomyopathy: Status: Acute Category: Medical Code(s): I25.5 - Ischemic cardiomyopathy (3) Peripheral arterial disease: Status: Acute Category: Medical Code(s): I73.9 - Peripheral vascular disease, unspecified (4) Oliguria: Status: Acute Category: Medical Code(s): R34 - Anuria and oliguria (5) CKD stage 4 due to type 2 diabetes mellitus: Status: Acute Category: Medical Code(s): E11.22 - Type 2 diabetes mellitus with diabetic chronic kidney disease; N18.4 - Chronic kidney disease, stage 4 (severe) (6) Hyperlipidemia: Status: Acute Qualifiers: Hyperlipidemia type: mixed hyperlipidemia Qualified Code(s): E78.2 - Mixed hyperlipidemia Category: Medical Code(s): E78.5 - Hyperlipidemia, unspecified (7) Diabetes mellitus: Status: Acute Qualifiers: Diabetes mellitus complication status: without complication Diabetes mellitus usp insulin 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 Diabetes mellitus type: type 2 Qualified Code(s): E11.9 - Type 2 diabetes mellitus without complications; Z79.4 - moth exterminator (current) use of insulin Category: Medical Code(s): E11.9 - Type 2 diabetes mellitus without complications (8) COPD (chronic obstructive pulmonary disease): Status: Acute Qualifiers: COPD type: chronic bronchitis Chronic bronchitis type: unspecified Qualified Code(s): J42 - Unspecified chronic bronchitis Category: Medical Code(s): J44.9 - Chronic obstructive pulmonary disease, unspecified (9) Hypertension: Status: Acute Qualifiers: Hypertension type: primary hypertension Qualified Code(s): I10 - Essential (primary) hypertension Category: Medical Code(s): I10 - Essential (primary) hypertension (10) Non-STEMI (non-ST elevated myocardial infarction): Status: Resolved Category: Medical Code(s): I21.4 - Non-ST elevation (NSTEMI) myocardial infarction (11) Chronic respiratory failure: Status: Acute Category: Medical Code(s): J96.10 - Chronic respiratory failure, unspecified whether with hypoxia or hypercapnia (12) PVD (peripheral vascular disease) with claudication: Status: Acute Category: Medical Code(s): I73.9 - Peripheral vascular disease, unspecified (13) Pleural effusion: Status: Acute Category: Medical Code(s): J90 - Pleural effusion, not elsewhere classified (14) Self-care deficit: Status: Acute Category: Medical Code(s): Z78.9 - Other specified health status (15) Aortic stenosis, moderate: Status: Acute Category: Medical Code(s): I35.0 - Nonrheumatic aortic (valve) stenosis (16) Anasarca: Status: Acute Category: Medical Code(s): R60.1 - Generalized edema (17) Cirrhosis: Status: Acute Category: Medical Code(s): K74.60 - Unspecified cirrhosis of liver Plan This is a 58-year-old male being admitted for acute on chronic CHF exacerbation, severe volume overload with anasarca. Condition complicated by his poorly controlled diabetes, peripheral vascular disease, CKD 4. Continues to require oxygen, wearing 2-3 L. Very poor response so far to diuresis. Continues to require inpatient management for increased aggressive diuresis. Close monitoring of kidney function and electrolytes. Continuing Bumex drip. Cardiology to evaluate in the morning. If kidney function not improving in the next 24 to 48 hours, may necessitate transfer to higher level of care with availability of nephrology to assist with care. Problems addressed as follows: #Acute on chronic hypoxic respiratory failure HFrEF exacerbation NSTEMI type II CKD stage IV Oliguria, severe exacerbation of kidney failure ? History of CAD status post 3 stents in March. ? Continue Bumex drip, increase to 2 mg/h. Responded well to Bumex earlier this month. Suspect component of ATN given prolonged heart failure, worsening edema, contrast load on admission, cirrhosis. Severe volume overload noted. Patient's weight up at least 10 kg. Globally overloaded with swelling in leg, ascites in abdomen, effusions bilaterally. -Repeat BMP ordered for this afternoon, repeat CBC, CMP, magnesium ordered for the morning. Close monitoring of electrolytes with diuresis, monitoring for toxicity. - Chemistry this morning with sodium 130, potassium 5.3, BUN 73 and creatinine 3.8. Having poor urine output with only 300 cc overnight. -Continue Lokelma daily for hyperkalemia - Anticipate bump in kidney function while we aggressively diuresed, anticipate function will improve with better perfusion and improvement in volume status as he is making good urine. ? BNP elevated at 63k on admission - ECHO earlier this month shows LVEF 20% with similar inferior akinesis as March this year, had been LVEF 30% earlier this. Patient does not want LifeVest at this time after extensively discussing risks and benefits. - Continue aspirin, Plavix 75 mg. ? Given patient's advanced CKD stage IV, unable to start NARESH/ARB/ARNI, MRA, or SGLT2i. -Discontinue isosorbide and metoprolol in the setting of his cirrhosis and concern for impaired renal perfusion. Allow for permissive hypertension. Continue hydralazine 50 mg 3 times a day #Physical deconditioning ? Have therapy evaluate patient prior to discharge. Previously recommended SNF placement, patient declined to go. Strong concern about his ability to care for himself at home. Type 2 diabetes Diabetic neuropathy -Hemoglobin A1c 7.8 1 month ago; glucose this morning 357 -Continue Lantus to 30 units nightly, continue sliding scale insulin and fingersticks ACHS -SSI for additional glycemic control COPD -Not in acute exacerbation, baseline oxygen 1 to 2 L. Increased oxygen requirement due to volume overload. -DuoNebs as needed, Continue Dulera -Maintain SpO2 greater than 90% -WBC 9, hemoglobin 10.5 HTN HLD -Continue statin, hydralazine as above CODE STATUS: Full code Surrogate decision maker: Saurabh [phone] Lovenox 30 mg subcu daily
[2024-03-26 18:08] LABS: Chloride 100 mmol/L (98-107); Sodium 129 mmol/L (136-145)
[2024-03-26 18:11] LABS: Blood Urea Nitrogen 78 mg/dl (9-20); Carbon Dioxide 22 mmol/L (22.0-30.0); Creatinine Clearance Estimated 30 mL/min (50-200); Estimated Glomerular Filt Rate 16 ml/min (>60); GFR (African American) 19 ML/MIN (>60)
[2024-03-26 18:12] LABS: Calcium 8.2 mg/dl (8.4-10.2); Glucose 187 mg/dl (74-100)
[2024-03-26 18:23] LABS: Troponin I 0.09 ng/ml (0.00-0.034)
[2024-03-26 18:24] LABS: Anion Gap 12.4 mEq/L (5-15); Potassium 5.4 mmoL/L (3.5-5.1)
[2024-03-26] MEDS: MILRINONE LACTATE 20 MG in 0.9 % SODIUM CHLORIDE 80 ML 3.83 MG IV (20:01)
[2024-03-26] MEDS: PANTOPRAZOLE 40MG TABLET 40 MG PO (20:19)
[2024-03-26] MEDS: TAMSULOSIN 0.4MG CAPSULE 0.4 MG PO (20:19)
[2024-03-26] MEDS: GABAPENTIN 300MG CAPSULE 300 MG PO (20:19)
[2024-03-26] MEDS: ATORVASTATIN 40MG TABLET 80 MG PO (20:19)
[2024-03-26] MEDS: humaLOG 100 UNITS/ML 10ML VIAL (SSI) SUBCUT (20:36)
[2024-03-26] MEDS: INSULIN GLARGINE 100 UNITS/ML 3ML FLEXPEN 30 UNIT SUBCUT (20:37)
[2024-03-26 20:47] LABS: POC Glucose,Bedside 212 (70-110)
[2024-03-26] MEDS: BUMETANIDE 10 MG in 0.9 % SODIUM CHLORIDE 60 ML 20 MG IV (22:24)
[2024-03-27] VITALS (49 sets, daily range): BP systolic 118–194; BP diastolic 52–104; PULSE 41–100; RESP 8–26; TEMP 36.3–36.6; O2SAT 82–100; BMI 30.9
[2024-03-27] MEDS: LORazepam 2MG/ML VIAL 0.5 MG IV (02:21)
[2024-03-27] MEDS: SODIUM CHLORIDE 0.9% 10ML VIAL 10 ML IV (02:22)
[2024-03-27] MEDS: BUMETANIDE 10 MG in 0.9 % SODIUM CHLORIDE 60 ML 20 MG IV ×4 (02:52→20:05)
--- NOTE | 2024-03-27 03:53 | EXP.EVENT.NO ---
On talking with the patient earlier had some anxiety. Ativan does pretty well at put that to a as needed basis every 6 hours if he needs it. Noted last night he was having leg pain stated he used to be on gabapentin as much is 800 mg., He gave him 300 mg it seems to work well and he did well but now he is requesting to have the gabapentin again been more than 24 hours., Since this helped him so well with his leg pain and seem to last quite a while going to start gabapentin 300 mg 3 times daily. This is for the neurologic pain to the leg. And per his past history this was all he is ever taken for the leg pain. 05:00, nursing called stating that the patient's pain in his leg was very severe he continues to hang, and it turns blue. But when dopplered he still has a pulse. Gabapentin may not have had time to work. But the patient is quite uncomfortable will give morphine four milligrams IV, kidney function restriction using Toradol. ,
[2024-03-27] MEDS: GABAPENTIN 300MG CAPSULE 300 MG PO ×4 (03:55→20:10)
--- NOTE | 2024-03-27 04:39 | PC.NURSE ---
Addendum entered by Susan Wall RN 03/27/24 05:52: 150 ML'S UOP. PT MEDICATED WITH ONE TIME DOSE OF MORPHINE 4 MG FOR RLE PAIN. Original Note: PT IS RESTING IN BED. ALERT AND ORIENTED X4. O2 SATURATION HAS MAINTAINED 96-98% ON 2 L NC. MEDICATED PER MAR FOR ANXIETY THIS SHIFT. MEDICATED FOR PAIN IN THE RLE WITH GABAPENTIN. 2-3+ PITTING EDEMA WITH SCATTERED ABRASIONS NOTED TO RLE. DOPPLER PEDAL PULSE. DRESSING TO PACEMAKER SITE CHANGED THIS SHIFT. WITH ENCOURAGEMENT STAFF WAS ABLE TO ASSIST PT WITH BATH AND LINEN CHANGE HOWEVER PT REFUSED TO HAVE BUTTOCKS AND MARIBEL AREA CLEANED AND STATED HE WAS NOT GOING TO REMOVE HIS SHORTS . LUNG SOUNDS DIMINISHED. ABDOMEN LARGE/FIRM WITH HYPOACTIVE BOWEL SOUNDS. NEW IV ACCESS NOTED TO RFA. PT HAS ONLY HAD 400 ML'S UOP THIS SHIFT. NSR ON TELEMETRY. WILL CONTINUE TO MONITOR.
[2024-03-27] MEDS: MORPHINE 4MG/ML SYRINGE 4 MG IV ×2 (05:08→16:30)
[2024-03-27 05:28] LABS: POC Glucose,Bedside 115 (70-110)
[2024-03-27 07:15] LABS: Albumin Level 3.2 g/dl (3.5-5.0); Chloride 101 mmol/L (98-107); Potassium 5.3 mmoL/L (3.5-5.1); Sodium 136 mmol/L (136-145)
[2024-03-27 07:17] LABS: Creatinine Clearance Estimated 29 mL/min (50-200); Estimated Glomerular Filt Rate 15 ml/min (>60); GFR (African American) 18 ML/MIN (>60)
[2024-03-27 07:18] LABS: Alanine Aminotransferase 19 U/L (12-78); Albumin/Globulin Ratio 1.2 (1.1-1.8); Alkaline Phosphatase 283 U/L (38-126); Anion Gap 18.3 mEq/L (5-15); Aspartate Amino Transferase 44 U/L (17-59); Bilirubin,Total 1.4 mg/dl (0.2-1.3); Calcium 8.1 mg/dl (8.4-10.2); Carbon Dioxide 22 mmol/L (22.0-30.0); Globulin 2.7 g/dL (1.3-3.2); Glucose 87 mg/dl (74-100); Total Protein,Serum 5.9 g/dl (6.3-8.2)
[2024-03-27 07:26] LABS: Basophils % 0.3 % (0.1-2.0); Eosinophils # 0.2 K/mm3 (0.0-0.4); Eosinophils % 2.2 % (0.1-12.0); Hematocrit 31.2 % (42.0-52.0); Hemoglobin 10.1 g/dL (14.1-18.0); Lymphocytes # 0.7 K/mm3 (0.7-4.5); Lymphocytes % 9.9 % (10-50); Mean Corpuscular HGB Conc 32.4 g/dL (31.8-35.4); Mean Corpuscular Hemoglobin 27.2 pg (27.0-31.2); Mean Corpuscular Volume 83.9 fl (80-94); Mean Platelet Volume 10.3 fl (7.4-10.4); Monocytes # 0.6 K/mm3 (0.1-1.0); Monocytes % 8.6 % (1.7-9.3); Neutrophils # 5.7 K/mm3 (1.8-7.8); Neutrophils % 78.6 % (37.0-80.0); Platelet Count 217 K/mm3 (142-424); Red Blood Count 3.72 M/mm3 (4.60-6.20); White Blood Count 7.3 K/mm3 (4.8-10.8)
[2024-03-27 07:32] LABS: Blood Urea Nitrogen 84 mg/dl (9-20)
--- NOTE | 2024-03-27 07:56 | EXP.ACUTE.PN ---
Subjective *Date: 03/27/24 *Time: 11:34 Interval history: Patient states breathing a little bit better today. Able to lay back in bed, not having to sit up as much. Leg sore, trying to keep it elevated because of his dependent edema. On 2 L nasal cannula. Has diuresed at least 500 cc since midnight. Significant improvement from yesterday, this is equal to his total output yesterday. Appears to be responding to milrinone drip and Bumex drip. States he feels anxious and is just concerned about his condition. Denies shraddha chest pain, nausea, vomiting. Having bowel movements. Medical Exam Vital signs and Labs for Last 24 Hours: Vital Signs Temp Pulse Pulse Pulse Resp BP Pulse Ox 03/27/24 06:24 03/27/24 06:00 86 20 132/92 H 97 03/27/24 05:00 85 22 143/101 H 98 03/27/24 04:37 03/27/24 04:00 100 H 03/27/24 04:00 70 03/27/24 04:00 97.4 F L 03/27/24 04:00 93 H 20 159/103 H 97 03/27/24 03:58 03/27/24 03:00 03/27/24 03:00 94 H 22 125/77 97 03/27/24 02:00 98 H 24 145/85 H 97 03/27/24 01:00 90 24 134/90 99 03/27/24 00:59 03/27/24 00:00 90 03/27/24 00:00 60 03/27/24 00:00 90 26 H 150/103 H 97 03/26/24 23:55 03/26/24 23:00 91 H 28 H 253/94 H 97 03/26/24 23:00 03/26/24 22:00 90 135/90 97 03/26/24 21:00 03/26/24 21:00 90 129/94 H 99 03/26/24 20:00 99 03/26/24 20:00 90 03/26/24 20:00 97.7 F 03/26/24 17:41 03/26/24 16:07 03/26/24 16:00 97.9 F 76 16 126/74 96 03/26/24 14:33 03/26/24 12:06 84 03/26/24 12:06 85 03/26/24 12:06 99 03/26/24 12:01 03/26/24 12:00 98.1 F 85 17 125/76 100 03/26/24 09:59 03/26/24 08:06 03/26/24 08:00 97.9 F 88 16 129/90 98 03/26/24 07:58 O2 Del Method O2 Flow Rate FiO2 03/27/24 06:24 Nasal Cannula 2 03/27/24 06:00 Nasal Cannula 2 03/27/24 05:00 Nasal Cannula 2 03/27/24 04:37 Nasal Cannula 2 03/27/24 04:00 03/27/24 04:00 03/27/24 04:00 03/27/24 04:00 Nasal Cannula 2 03/27/24 03:58 Nasal Cannula 2 03/27/24 03:00 Nasal Cannula 2 03/27/24 03:00 Nasal Cannula 2 03/27/24 02:00 Nasal Cannula 2 03/27/24 01:00 Nasal Cannula 2 03/27/24 00:59 Nasal Cannula 2 03/27/24 00:00 03/27/24 00:00 03/27/24 00:00 Nasal Cannula 2 03/26/24 23:55 Nasal Cannula 03/26/24 23:00 Nasal Cannula 03/26/24 23:00 Nasal Cannula 03/26/24 22:00 Nasal Cannula 2 03/26/24 21:00 Nasal Cannula 2 03/26/24 21:00 Nasal Cannula 2 03/26/24 20:00 Nasal Cannula 2 03/26/24 20:00 03/26/24 20:00 03/26/24 17:41 Nasal Cannula 2 03/26/24 16:07 Nasal Cannula 2 03/26/24 16:00 Nasal Cannula 03/26/24 14:33 Nasal Cannula 2 03/26/24 12:06 03/26/24 12:06 03/26/24 12:06 Nasal Cannula 2 03/26/24 12:01 Nasal Cannula 2 03/26/24 12:00 Nasal Cannula 03/26/24 09:59 Nasal Cannula 2 03/26/24 08:06 Nasal Cannula 3 03/26/24 08:00 03/26/24 07:58 Nasal Cannula 3 Intake and Output 03/26/24 03/26/24 03/27/24 15:59 23:59 07:59 Intake Total 900 / 1750.167 445 / 1750.167 624.333 / 624.333 Output Total 225 / 825 550 / 550 Balance 675 / 925.167 445 / 925.167 74.333 / 74.333 Intake: Intake, Oral Amount 720 / 1080 360 / 1080 Intake, Total IV Amount 180 / 670.167 85 / 670.167 624.333 / 624.333 Bumetanide 10 mg In 0.9 % 80 / 478 507 / 507 Sodium Chloride 60 ml @ 20 mls/ hr IV .Q5H ARIEL Rx#:[id number] Milrinone Lactate 20 mg In 0.9 28 / 28 % Sodium Chloride 80 ml @ 0.125 MCG/KG/MIN 3.831 mls/hr IV . Q24H [facility] Rx#:[id number] Output: Output, Urine Amount 225 / 825 550 / 550 Other: Number of Unmeasured Voids 0 Weight 102.149 kg 103.6 kg Patient Weight 03/27/24 23:59 Weight 103.6 kg Laboratory Results - last 24 hr 03/26/24 10:43: POC Glucose 100 03/26/24 11:00: WBC 9.0 D, RBC 3.98 L, Hgb 10.5 L, Hct 33.1 L, MCV 83.2, MCH 26.4 L, MCHC 31.7 L, RDW 17.9 H, Plt Count 199, MPV 10.2, Neut % (Auto) 81.1 H, Lymph % (Auto) 10.4, [place] % (Auto) 7.4, Eos % (Auto) 0.7, Baso % (Auto) 0.2, Neut # (Auto) 7.3, Lymph # (Auto) 0.9, [place] # (Auto) 0.7, Eos # (Auto) 0.1, Baso # (Auto) 0.0, Sodium 130 L, Potassium 5.3 H, Chloride 100, Carbon Dioxide 24, Anion Gap 11.3, BUN 73 H, Creatinine 3.80 H, Estimated Creat Clear 31, Estimated GFR 17 L*, Est GFR ( Amer) 20 L, Glucose 81 D, Calcium 8.3 L, Magnesium 2.2, Total Bilirubin 1.6 H, AST 43, ALT 19 D, Alkaline Phosphatase 265 H, Total Protein 5.7 L, Albumin 3.2 L, Globulin 2.5, Albumin/Globulin Ratio 1.3 03/26/24 17:55: Sodium 129 L, Potassium 5.4 H, Chloride 100, Carbon Dioxide 22, Anion Gap 12.4, BUN 78 H, Creatinine 4.00 H, Estimated Creat Clear 30, Estimated GFR 16 L*, Est GFR ( Amer) 19 L*, Glucose 187 H D, Calcium 8.2 L, Troponin I 0.09 H 03/26/24 20:33: POC Glucose 212 H 03/27/24 05:14: POC Glucose 115 H 03/27/24 06:05: WBC 7.3, RBC 3.72 L, Hgb 10.1 L, Hct 31.2 L, MCV 83.9, MCH 27.2, MCHC 32.4, RDW 18.0 H, Plt Count 217, MPV 10.3, Neut % (Auto) 78.6, Lymph % (Auto) 9.9 L, [place] % (Auto) 8.6, Eos % (Auto) 2.2, Baso % (Auto) 0.3, Neut # (Auto) 5.7, Lymph # (Auto) 0.7, [place] # (Auto) 0.6, Eos # (Auto) 0.2, Baso # (Auto) 0.0, Sodium 136, Potassium 5.3 H, Chloride 101, Carbon Dioxide 22, Anion Gap 18.3 H, BUN 84 H, Creatinine 4.20 H, Estimated Creat Clear 29, Estimated GFR 15 L*, Est GFR ( Amer) 18 L*, Glucose 87 D, Calcium 8.1 L, Total Bilirubin 1.4 H, AST 44, ALT 19, Alkaline Phosphatase 283 H, Total Protein 5.9 L, Albumin 3.2 L, Globulin 2.7, Albumin/Globulin Ratio 1.2 I & O for Labs for Last 24 Hours: Intake & Output 03/24/24 03/25/24 03/26/24 03/27/24 23:59 23:59 23:59 23:59 Intake Total 743.500 / 879.117 5836.167 / 1750.167 624.333 / 624.333 Output Total 490 / 490 425 / 825 550 / 550 Balance 253.500 / 253.500 920.167 / 925.167 74.333 / 74.333 Weight 113.398 kg 97.125 kg 102.149 kg 103.6 kg Microbiology Reports for the Last 24 Hours: Microbiology 03/24/24 18:10 Blood Blood Culture - Preliminary NO GROWTH AFTER 48 HOURS 03/24/24 17:35 Blood Blood Culture - Preliminary NO GROWTH AFTER 48 HOURS Constitutional: Present mild distress, chronically ill appearing and cooperative Head: Present atraumatic and normocephalic ENT: Present normal exam Neck: Present normal inspection Respiratory: Present prolonged expiratory phase, crackles (Bases bilateral) and diminished air movement; Absent rhonchi or wheezes Cardiac: Present Reg Rate and Rhythm and Systolic Murmur GI: Present soft, distention and normal bowel sounds; Absent tenderness Extremities: Present normal inspection, full ROM and edema (4+ edema to abdomen; weeping from right leg improving) Comment:: Left AKA Skin: Present intact; Absent erythema Neuro: Present Grossly Intact, alert, awake and moves all extremities Assessment and Plan *Assessment and plan (1) HFrEF (heart failure with reduced ejection fraction): Status: Acute Category: Medical Code(s): I50.20 - Unspecified systolic (congestive) heart failure (2) Ischemic cardiomyopathy: Status: Acute Category: Medical Code(s): I25.5 - Ischemic cardiomyopathy (3) Peripheral arterial disease: Status: Acute Category: Medical Code(s): I73.9 - Peripheral vascular disease, unspecified (4) Oliguria: Status: Acute Category: Medical Code(s): R34 - Anuria and oliguria (5) CKD stage 4 due to type 2 diabetes mellitus: Status: Acute Category: Medical Code(s): E11.22 - Type 2 diabetes mellitus with diabetic chronic kidney disease; N18.4 - Chronic kidney disease, stage 4 (severe) (6) Hyperlipidemia: Status: Acute Qualifiers: Hyperlipidemia type: mixed hyperlipidemia Qualified Code(s): E78.2 - Mixed hyperlipidemia Category: Medical Code(s): E78.5 - Hyperlipidemia, unspecified (7) Diabetes mellitus: Status: Acute Qualifiers: Diabetes mellitus type: type 2 Diabetes mellitus custodial insulin use: with long line teamster use Diabetes mellitus complication status: without complication Qualified Code(s): E11.9 - Type 2 diabetes mellitus without complications; Z79.4 - senior living (current) use of insulin Category: Medical Code(s): E11.9 - Type 2 diabetes mellitus without complications (8) COPD (chronic obstructive pulmonary disease): Status: Acute Qualifiers: COPD type: chronic bronchitis Chronic bronchitis type: unspecified Qualified Code(s): J42 - Unspecified chronic bronchitis Category: Medical Code(s): J44.9 - Chronic obstructive pulmonary disease, unspecified (9) Hypertension: Status: Acute Qualifiers: Hypertension type: primary hypertension Qualified Code(s): I10 - Essential (primary) hypertension Category: Medical Code(s): I10 - Essential (primary) hypertension (10) Non-STEMI (non-ST elevated myocardial infarction): Status: Resolved Category: Medical Code(s): I21.4 - Non-ST elevation (NSTEMI) myocardial infarction (11) Chronic respiratory failure: Status: Acute Category: Medical Code(s): J96.10 - Chronic respiratory failure, unspecified whether with hypoxia or hypercapnia (12) PVD (peripheral vascular disease) with claudication: Status: Acute Category: Medical Code(s): I73.9 - Peripheral vascular disease, unspecified (13) Pleural effusion: Status: Acute Category: Medical Code(s): J90 - Pleural effusion, not elsewhere classified (14) Self-care deficit: Status: Acute Category: Medical Code(s): Z78.9 - Other specified health status (15) Aortic stenosis, moderate: Status: Acute Category: Medical Code(s): I35.0 - Nonrheumatic aortic (valve) stenosis (16) Anasarca: Status: Acute Category: Medical Code(s): R60.1 - Generalized edema (17) Cirrhosis: Status: Acute Category: Medical Code(s): K74.60 - Unspecified cirrhosis of liver Plan This is a 58-year-old male being admitted for acute on chronic CHF exacerbation, severe volume overload with anasarca. Condition complicated by his poorly controlled diabetes, peripheral vascular disease, CKD 4. Continues to require oxygen, wearing 2-3 L. Very poor response so far to diuresis. Continues to require inpatient management for increased aggressive diuresis. Close monitoring of kidney function and electrolytes. Continuing Bumex drip. Initiated on milrinone drip overnight. Showing some response. Patient's condition serious, prognosis guarded. Monitoring kidney function closely as he may necessitate transfer to higher level of care if kidney function worsens and urine output decreases. Cardiology assisting with care. Problems addressed as follows: #Acute on chronic hypoxic respiratory failure HFrEF exacerbation NSTEMI type II CKD stage IV Oliguria, severe exacerbation of kidney failure ? History of CAD status post 3 stents in March. ? Continue Bumex drip at 2 mg/h. Initiated on milrinone last night due to worsening kidney function and poor urine output with oliguria. Continue milrinone at 0.125 mcg. -Improving urine output. Over 500 cc in 8 hours since midnight. - Suspect component of ATN given prolonged heart failure, worsening edema, contrast load on admission, cirrhosis. Severe volume overload noted. Patient's weight up at least 10 kg. Globally overloaded with swelling in leg, ascites in abdomen, effusions bilaterally. -Repeat BMP ordered for this afternoon, repeat CBC, CMP, magnesium ordered for the morning. Close monitoring of electrolytes with diuresis, monitoring for toxicity. -Sodium 136, chloride 101, potassium 5.3, BUN 84, creatinine 4.2. -Continue Lokelma daily for hyperkalemia - Anticipate bump in kidney function while we aggressively diuresed, anticipate function will improve with better perfusion and improvement in volume status as he is making good urine. ? BNP elevated at 63k on admission; repeat ordered and pending - ECHO earlier this month shows LVEF 20% with similar inferior akinesis as March this year, had been LVEF 30% earlier this. Patient does not want LifeVest at this time after extensively discussing risks and benefits. - Continue aspirin, Plavix 75 mg. ? Given patient's advanced CKD stage IV, unable to start NARESH/ARB/ARNI, MRA, or SGLT2i. -Continue to hold isosorbide and metoprolol in the setting of his cirrhosis and concern for impaired renal perfusion. Allow for permissive hypertension. Continue hydralazine 50 mg 3 times a day #Physical deconditioning ? Previously recommended SNF placement, patient declined to go. Strong concern about his ability to care for himself at home. Therapy working with him at this time. Continues to need SNF therapy, patient states he will go home with a wheelchair. Has no desire to go to rehab. Type 2 diabetes Diabetic neuropathy -Hemoglobin A1c 7.8 1 month ago; glucose this morning 87 -Continue Lantus to 30 units nightly, continue sliding scale insulin and fingersticks ACHS -SSI for additional glycemic control COPD -Not in acute exacerbation, baseline oxygen 1 to 2 L. Increased oxygen requirement due to volume overload. Tolerating 2 L at this time -DuoNebs as needed, Continue Dulera -Maintain SpO2 greater than 90% -WBC 7.3, hemoglobin 10. HTN HLD -Continue statin, hydralazine as above CODE STATUS: Full code Surrogate decision maker: Saurabh [phone] Lovenox 30 mg subcu daily ICU/Critical care attestation This patient is critically ill with 35 minutes devoted solely to this patient managing life/organ supporting interventions that required physician assessment. This includes time spent making adjustments in ventilator settings, IV fluid administration, titration of pressors, adjustments of medications, discussion of patient with consultants and other care providers as well as updating patient and/or family (if patient by virtue of his/her condition is unable to participate in decision making). This does not include time spent performing separately billed procedures. Time is not concurrent with that of other providers.
[2024-03-27 08:56] LABS: Magnesium 2.1 mg/dl (1.6-2.3)
[2024-03-27] MEDS: ASPIRIN EC 81MG TABLET 81 MG PO (09:10)
[2024-03-27] MEDS: HYDRALAZINE HCL 25MG TABLET 50 MG PO ×3 (09:10→20:10)
--- NOTE | 2024-03-27 09:49 | HMH.OTEV ---
OT Inpatient Evaluation Rehab OT IP Evaluation Start: 03/26/24 17:30 Freq: ONCE Status: Active Protocol: Document 03/27/24 09:44 DOLORES (Rec: 03/27/24 09:49 [email or web address] [id number]) Rehab OT IP Assessment Subjective History Pt oriented x 3 on arrival. Pt agreeable to engage in therapy evaluation after MAX verbal prompts and encouragement for participation. Pt was admitted on 03/24/24 due to CHF. History and physical: This patient that is known to me as I took care of him last month., He lives alone severe diabetes O2 dependent.. Notable for left leg amputation above the knee. New since last time I seen him he states he had a pacer placed approximately 2 weeks ago.. Other problems noting that he is gaining several kilograms of weight around 20. That his right leg extremely edematous especially but not all of the knee.. When I came in to examine him he had the leg hanging down and actually the distal part of the foot and the toes were blue. Also clear drainage from around the nailbed of the great toe. Rest showing significant peripheral or vascular disease versus early cellulitis of the lower extremity. Was concerned about blood flow the foot as did not have providers here to be able to see him before Wednesday or of next week. I do feel there is a real possibility that this lower right extremity may require amputation in the near future, CT scan with blood flow shows that he does have flow to the foot there was some blockage but showing peripheral vascular development allowing backflow to certain areas, for this reason feeling that we would not lose the limb immediately decided was time to go ahead and admit the patient., Was given Bumex in the ER 1 dose. Of 2 mg this will be repeated once he gets to the floor and eventually set up on a possible drip. Also will get case management and high school social studies tutor involved. The patient is not able to get to his primary care provider due to swelling of his left extremity above-knee amputation cannot put his prosthesis on and thus cannot get to the car to drive to his primary care to be cared for .., Patient is totally adamant against not going to long-term care/rehab as he will afraid that he would be unable to pay his rent and utilities and not have a place to live. He did note he had home health after he went home from the hospital. Presently patient is stable., ,Noting need to be able to get some of the fluid off from abdomen lungs and especially the right leg noting that Bumex 2 mg in the, ER had some good results wanting to start drip but unsure at this point in time how much diuresis he can tolerate., So we will just repeat Bumex to IV at this time and monitor.. This is also due to his chronic kidney injury BUN up in the high 50s creatinine 2.8 also increased lactate troponin as stable at 0.06. Subjective I can't do it right now. Prior to being in the hospital , pt lived at home alone. Pt claims normally he is independent with all ADLs and IADLs. Pt is normally able to transfer himself utilizing prosthesis and walker. Pt does use a wheelchair for functional transfers as well. Objective Patient Orientation Person,Place,Birthday Right Upper Extremity Gross ROM WFL Left Upper Extremity Gross ROM WFL Bed Mobility bed mobility-scooting,bed mobility - supine/sit Assist Level Moderate x 2 (50% assist) Rehab OT IP prob,goals,plan Problems Date of Evaluation: 03/27/24 OT IP Problems Bed Mobility,Transfers,Balance ,Self care,Safety Rehab Potential Rehab Potential Good Equipment Needs Assistive Devices Rolling / Wheeled Walker, Wheelchair Plan OT intervention Plan Bed Mobility,Transfers,Balance ,Self care,Safety,Therapeutic Exercise OT Plan Frequency Daily Duration LOS Discharge Goals Bed Mobility Ability Assistance x1 Sit to Stand Chair Transfer Ability Moderate x 1 (50% assist) Chair Transfer Ability Moderate x 1 (50% assist) Chair Transfer Technique Stand Pivot Chair Transfer Assistive Devices Rolling Walker Feeding Ability Assist with Tray Set Up Lower Body Dressing Ability Moderate Assistance Upper Body Dressing Ability Minimal Assistance Bathing Ability Moderate Assistance Performing Toilet Hygiene Ability Moderate Assistance Overall Commode/Toilet Transfer Ability Minimal Assistance,Moderate Assistance Commode/Toilet Transfer Technique Stand Pivot Commode/Toilet Transfer Assistive Grab Bars Devices Oral Care Assist Minimal Assistance Decrease in Endurance Yes Discharge Plan OT Discharge Plan Pt will continue to be seen for OT services while at [facility]. Pt would benefit most from short term rehab at [facility] following hospital stay. Continued skilled therapy is important in order for patient to improve strength, safety, endurance, ADL independence, and functional transfers to reach OF. Eval Complexity Eval Charge Codes 62784 - Moderate Complexity PHYSICIAN CERTIFICATION: I certify the specified therapy services for Buzz Hurley JR are required, authorized, and reviewed every 30 days.
--- NOTE | 2024-03-27 09:54 | HMH.PTEV ---
Physical Therapy Evaluation Rehab PT IP Evaluation Start: 03/26/24 17:30 Freq: ONCE Status: Active Protocol: Document 03/27/24 09:49 ILENE (Rec: 03/27/24 09:54 ILENE [id number]) Subjective/History History History H&P: This patient that is known to me as I took care of him last month., He lives alone severe diabetes O2 dependent.. Notable for left leg amputation above the knee. New since last time I seen him he states he had a pacer placed approximately 2 weeks ago.. Other problems noting that he is gaining several kilograms of weight around 20. That his right leg extremely edematous especially but not all of the knee.. When I came in to examine him he had the leg hanging down and actually the distal part of the foot and the toes were blue. Also clear drainage from around the nailbed of the great toe. Subjective Subjective I can't do it right now. Prior to being in the hospital , pt lived at home alone. Pt claims normally he is independent with all mobility, ADLs, and IADLs. Pt is normally able to transfer himself utilizing prosthesis, RW, and w/c. Pt reports he ambulates short distances and uses a wheelchair for functional transfers. New diagnosis of cancer in past 12 No months? Rehab PT IP Eval Objective Appearance Patient Behavior Appropriate Patient Orientation Person,Situation Difficulty following instructions none Speech Pattern Mumbled Ambulation Patient Able to Ambulate No Balance Ability to Arise Unable Sitting Balance Leans or slides in chair Transfers Bed Transfer Ability Moderate x 2 (50% assist) Rehab PT IP prob,goals,plan Problems Date of Evaluation: 03/27/24 PT IP Problems Bed Mobility,Transfers,Balance ,Self care,Safety Rehab Potential Rehab Potential Good Plan PT Intervention Plan Bed Mobility,Transfers,Gait, Balance,Self care,Safety, Therapeutic Exercise Other Intervention Plan 1-2 times PT Plan Frequency Daily Duration LOS Discharge Goals Bed Transfer Ability Moderate x 1 (50% assist) Sit to Stand Chair Transfer Ability Moderate x 1 (50% assist) Ambulation Assistive Device None Discharge Plan PT Discharge Plan Initial physical therapy evaluation performed. Patient presents below baseline at this time in functional mobility, transfers, and strength. Pt not safe to return home at this time d/t current level of functional mobility. PT recommending short-term rehabilitation stay upon d/c from [facility]. Pt would benefit from skilled PT while at [facility] to prevent further functional decline and maximize safety with mobility. Eval Complexity Eval Charge Codes 67870 - Moderate Complexity PHYSICIAN CERTIFICATION: I certify the specified therapy services for Buzz Hurley JR are required, authorized, and reviewed every 30 days.
--- NOTE | 2024-03-27 10:05 | HMH.PTWOUND ---
Rehab Inpt Wound Evaluation Rehab IP Wound Evaluation Start: 03/25/24 03:02 Freq: ONCE Status: Active Protocol: Document 03/27/24 09:58 LITA (Rec: 03/27/24 10:05 PHOGAYATHRI [id number]) Rehab PT Wound Assessment Subjective Subjective 58 yowm adm to [facility] with increased SOA and CHF. He has baseline L AKA and presents with significant edema and erythema to the R LE with serous drainage noted from the L lower leg. Currently he presents with 3+ pitting edema throughout the L lower leg with severe Blanchable erythema, but no longer any weeping drainage from the L LE . He has PMH as follows: Lymphedema of right lower extremity Onychodystrophy Thoracic aneurysm without mention of rupture LV dysfunction Ischemic cardiomyopathy Acute blood loss anemia HFrEF (heart failure with reduced ejection fraction) Peripheral arterial disease Stenosis of carotid artery Atypical angina Hyperlipidemia CAD in [place] artery Asthma Diabetes mellitus, type 2 Congestive heart failure Above knee amputation of left lower extremity History of left heart catheterization (LHC) Diabetes mellitus Hypertension COPD (chronic obstructive pulmonary disease) Plan/Recommendation Comment Several small scabbed over areas of the R lower leg, but no drainage currently. Pt c/o pain with elevation of the R LE and R foot pulses are very difficult to palpate due to significant pitting edema. Currently there is no need for debridement of any wounds on the R lower leg and any significant compression of the R lower leg would likely increase pt discomfort without significant improvement of his current condition. Will follow for possible need for later wound care, but at this time no current needs for inpatient wound treatment. I agree that this is likely a combination of CHF and CVI with possible cellulitis as underlying diagnoses. Eval Complexity Eval Charge Codes 02433 - High Complexity PHYSICIAN CERTIFICATION: I certify the specified therapy services for Buzz Hurley JR are required, authorized, and reviewed every 30 days.
--- NOTE | 2024-03-27 10:23 | SW/DCPLANNER ---
Addendum entered by Miranda Scruggs 04/06/24 14:57: Sent Patients info to [facility] and they can take patient. Franny Miramontes Addendum entered by Nupur Klein 04/05/24 10:47: Patient continues to refuse SNF level of care at time of discharge. Patient is agreeable to home health services and does not have an agency preference. I will set up home health services at time of discharge. Original Note: I spoke w/ this patient regarding plans once medically stable for discharge. PT/OT evaluated patient and recommended SNF level of care stating patient is not able to ambulate at this time. I did speak w/ patient this AM regarding the need for placement at time of discharge. Patient stated that he is not interested in placement and prefers to return home w/ home health services. I did explain the importance of placement due to not being able to ambulate. Patient stated that he uses a wheel chair to get around at home and is able to complete ADL's. I will continue to follow up w/ this patient until medically stable for discharge. Discharge date is unknown at this time.
[2024-03-27 10:28] LABS: NT Pro Brain Natriuretic Pep. > 30000 pg/mL (0-125)
[2024-03-27 12:12] LABS: POC Glucose,Bedside 131 (70-110)
--- NOTE | 2024-03-27 12:25 | PC.NURSE ---
santos removed from left chest at pacemaker site per v/o from Dr Duke and Baljeet TREVIÑO. steri strips applied after staple removal. pt tolerated well 3550
--- NOTE | 2024-03-27 13:46 | P.CONCA_ITS ---
History of Present Illness History of Present Illness Consult date: 03/27/24 Requesting physician: Gurinder Duke Consult reason: congestive heart failure Chief complaint: SOA, Edema Additional 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:: 1. CAD A. ANGELA to LAD, 03/2023, remaining large OM disease relegated to medical therapy 2. Ischemic cardiomyopathy/HFrEF A. EF 30%, 03/2023 B. 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 CHF admission, 03/24/2024 3. Hyperlipidemia 4. Hypertension 5. History of ascending aortic aneurysm on echo 3.7 cm, 01/2024 6. CKD, stage 4 with baseline Cr around 2.9 with GFR 22 A. chronic anemia, Hgb around 10 7. COPD A. Former smoker 8. Diabetes mellitus 9. Status post Left AKA 10. Mixed valve disease, echo, 01/2024 A. Echo, 01/2024, EF 20%, grade 3 DD, moderate AAS/AI/MR with moderate to severe TR. RVSP 30-35 mmHg 11. Bilateral DIEGO noted on Abd CTA, 03/24/2024 Echo, 02/25/2024 Severely dilated LV with severely reduced LV systolic function (LVEF 20%). Grade 3 diastolic dysfunction. The inferior LV wall is nearly akinetic. Severely dilated RV with moderate reduction in RV systolic function. Biatrial dilation. Moderately thickened AV leaflets. AV likely bicuspid (anatomic vs. functional) with fusion of the right and the non-coronary cusps. Moderate (MATEO by 2D planimetry and continuity equation is 1.2 cm2. Peak velocity 2.1 m/s. Mean AV gradient 10 mmHg. Max AV gradient 21 mmHg. The gradients are likely underestimated due to severely reduced LV systolic function). Moderate AI. Moderate MR. Moderate to severe TR. RVSP is 30-35 mmHg. The ascending aorta is borderline dilated, measuring 3.7 cm in diameter. History of present illness: This patient that is known to me as I took care of him last month., He lives alone severe diabetes O2 dependent.. Notable for left leg amputation above the knee. New since last time I seen him he states he had a pacer placed approximately 2 weeks ago.. Other problems noting that he is gaining several kilograms of weight around 20. That his right leg extremely edematous especially but not all of the knee.. When I came in to examine him he had the leg hanging down and actually the distal part of the foot and the toes were blue. Also clear drainage from around the nailbed of the great toe. Rest showing significant peripheral or vascular disease versus early cellulitis of the lower extremity. Was concerned about blood flow the foot as did not have providers here to be able to see him before Wednesday or of next week. I do feel there is a real possibility that this lower right extremity may require amputation in the near future, CT scan with blood flow shows that he does have flow to the foot there was some blockage but showing peripheral vascular development allowing backflow to certain areas, for this reason feeling that we would not lose the limb immediately decided was time to go ahead and admit the patient., Was given Bumex in the ER 1 dose. Of 2 mg this will be repeated once he gets to the floor and eventually set up on a possible drip. Also will get case management and social sciences research scientist involved. The patient is not able to get to his primary care provider due to swelling of his left extremity above-knee amputation cannot put his prosthesis on and thus cannot get to the car to drive to his primary care to be cared for .., Patient is totally adamant against not going to long-term care/rehab as he will afraid that he would be unable to pay his rent and utilities and not have a place to live. He did note he had home health after he went home from the hospital. Presently patient is stable., ,Noting need to be able to get some of the fluid off from abdomen lungs and especially the right leg noting that Bumex 2 mg in the, ER had some good results wanting to start drip but unsure at this point in time how much diuresis he can tolerate., So we will just repeat Bumex to IV at this time and monitor.. This is also due to his chronic kidney injury BUN up in the high 50s creatinine 2.8 also increased lactate troponin as stable at 0.06. The above per Dr. Duke's H&P Cardiology consulted due to elevated troponins and recurrent HFrEF with poor response to Bumex necessitating initiation of milrinone therapy in the setting of CKD stage IV. Patient did start having better diuresis of this morning after being started on milrinone overnight. He still has significant diffuse edema and anasarca. [facility] Disclaimer: The information contained in this section may have been updated after the patient was seen, as this information can be updated by other users. 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 , DESIGN ASSISTANT) Lymphedema of right lower extremity Onychodystrophy Thoracic aneurysm without mention of rupture LV dysfunction Ischemic cardiomyopathy Acute blood loss anemia HFrEF (heart failure with reduced ejection fraction) Peripheral arterial disease Stenosis of carotid artery Atypical angina Hyperlipidemia CAD in [place] artery Asthma Diabetes mellitus, type 2 Congestive heart failure Above knee amputation of left lower extremity History of left heart catheterization (LHC) Diabetes mellitus Hypertension COPD (chronic obstructive pulmonary disease) Surgical History , DESIGN ASSISTANT) Stented coronary artery Status post above-knee amputation of left lower extremity History of cholecystectomy Family History , DESIGN ASSISTANT) Family history of cancer Social History (Updated 03/25/24 @ 01:05 by Sirisha Jacques RN) Smoking Status: Former smoker tobacco type: cigarettes packs per day: 2 alcohol intake: never substance use type: denies use current occupational status: disabled Travel in the last 8 weeks: None housing: house current occupational exposures/hazards: No Have you lived/traveled outside [place] in past 30 days?: No Contact w/someone who lives/traveled outside US past 30 days?: No Exposure to someone with infectious disease in past 14 days?: No Do you have a fever (greater than 100.4 F or 38 C)?: No Have you tested positive for COVID-19: No Exposed to someone with COVID-19 in past 14 days?: No Do you have a sore throat?: No Do you have a cough?: No Do you have any weakness?: No Are you experiencing any nausea/vomitting?: No Do you have any diarrhea?: No Are you experiencing any unusual bleeding?: No Do you have any muscle aches/pain?: No Do you have any abdominal pain?: No Are you experiencing loss of taste or smell?: No Review of Systems Review of Systems Review of systems:: pertinent systems reviewed and negative unless documented below ENT Ears, Nose, Mouth, and Throat: Reports disequilibrium *Cardiovascular Cardiovascular: Reports chest pain and Reports dyspnea *Respiratory Respiratory: Reports dyspnea *Musculoskeletal Musculoskeletal: Reports abnormal gait (Left leg amputated above the knee) *Neurologic Neurologic: Reports abnormal gait (Left leg amputated above the knee) and Reports disequilibrium Exam Data for Last 24 hours Vital signs and Labs for Last 24 Hours: Temp Pulse Resp BP Pulse Ox O2 Del Method O2 Flow Rate 97.5 F L 94 H 20 150/52 H 98 Nasal Cannula 2 03/27/24 12:00 03/27/24 12:00 03/27/24 12:00 03/27/24 12:00 03/27/24 12:00 03/27/24 12:00 03/27/24 12:00 FiO2 3 03/26/24 07:58 Laboratory Results - last 24 hr 03/26/24 17:55: Sodium 129 L, Potassium 5.4 H, Chloride 100, Carbon Dioxide 22, Anion Gap 12.4, BUN 78 H, Creatinine 4.00 H, Estimated Creat Clear 30, Estimated GFR 16 L*, Est GFR ( Amer) 19 L*, Glucose 187 H D, Calcium 8.2 L, Troponin I 0.09 H 03/26/24 20:33: POC Glucose 212 H 03/27/24 05:14: POC Glucose 115 H 03/27/24 06:05: WBC 7.3, RBC 3.72 L, Hgb 10.1 L, Hct 31.2 L, MCV 83.9, MCH 27.2, MCHC 32.4, RDW 18.0 H, Plt Count 217, MPV 10.3, Neut % (Auto) 78.6, Lymph % (Auto) 9.9 L, [place] % (Auto) 8.6, Eos % (Auto) 2.2, Baso % (Auto) 0.3, Neut # (Auto) 5.7, Lymph # (Auto) 0.7, [place] # (Auto) 0.6, Eos # (Auto) 0.2, Baso # (Auto) 0.0, Sodium 136, Potassium 5.3 H, Chloride 101, Carbon Dioxide 22, Anion Gap 18.3 H, BUN 84 H, Creatinine 4.20 H, Estimated Creat Clear 29, Estimated GFR 15 L*, Est GFR ( Amer) 18 L*, Glucose 87 D, Calcium 8.1 L, Magnesium 2.1, Total Bilirubin 1.4 H, AST 44, ALT 19, Alkaline Phosphatase 283 H, NT-Pro-B Natriuret Pep > 14333 H, Total Protein 5.9 L, Albumin 3.2 L, Globulin 2.7, Albumin/Globulin Ratio 1.2 03/27/24 11:42: POC Glucose 131 H I & O for Last 24 hours: Intake & Output 03/25/24 03/26/24 03/27/24 03/28/24 11:59 11:59 11:59 11:59 Intake Total 480 / 480 623.667 / 229.835 1945.060 / 1989.060 Output Total 340 / 340 350 / 350 950 / 950 Balance 140 / 140 273.667 / 218.874 0347.060 / 1040.060 Weight 214 lb 1.983 oz 225 lb 3.2 oz 228 lb 6.4 oz Microbiology Reports for the Last 24 Hours: Microbiology 03/24/24 18:10 Blood Blood Culture - Preliminary NO GROWTH AFTER 48 HOURS 03/24/24 17:35 Blood Blood Culture - Preliminary NO GROWTH AFTER 48 HOURS Constitutional Constitutional: mild distress *Routine Respiratory Exam Respiratory: Present decreased breath sounds *Routine Cardiovascular Exam Cardiovascular: Present RRR and murmur; Absent gallop or rubs *Routine Extremities Exam Extremities: Present edema *Routine Neurological Exam Neurological: Present alert, oriented X3 and CN II-XII intact Meds Home Medications and Allergies Home Medications ?Medication ?Instructions ?Recorded ?Confirmed ?Type umeclidinium 62.5 mcg/actuation 1 inh inhalation DAILY 04/06/23 03/25/24 History blister powder for inhalation (Incruse Ellipta) mometasone-formoterol HFA 100 2 inh inhalation BID 02/23/24 03/25/24 History mcg-5 mcg/actuation aerosol inhaler (Dulera) metoprolol succinate 50 mg 50 mg PO DAILY 02/24/24 03/25/24 History tablet,extended release 24 hr semaglutide 0.25 mg or 0.5 mg (2 0.25 mg SQ WEEKLY 02/24/24 03/25/24 History mg/3 mL) subcutaneous pen injector (Ozempic) aspirin 81 mg tablet,delayed 81 mg PO DAILY 30 days #30 tabs 02/26/24 03/25/24 Rx release atorvastatin 80 mg tablet 80 mg PO HS 30 days #30 tabs 02/26/24 03/25/24 Rx hydralazine 25 mg tablet 50 mg (2 x 25 mg) PO TID 30 days 02/26/24 03/25/24 Rx #180 tabs isosorbide dinitrate 10 mg tablet 20 mg (2 x 10 mg) PO TID 30 days 02/26/24 03/25/24 Rx #180 tabs bumetanide 2 mg tablet 2 mg PO BID #60 tabs 03/02/24 03/25/24 Rx gabapentin 300 mg capsule 300 mg PO HS 30 days #30 caps 03/02/24 03/25/24 Rx insulin glargine 100 unit/mL (3 20 unit (0.2 mL) SQ HS 30 days #6 03/02/24 03/25/24 Rx mL) subcutaneous pen (Basaglar mL KwikPen U-100 Insulin) sodium bicarbonate 650 mg tablet 650 mg PO DAILY 30 days #30 tabs 03/02/24 03/25/24 Rx clopidogrel 75 mg tablet 75 mg PO DAILY 03/25/24 03/25/24 History New Prescriptions to Start Prescriptions: Allergies Allergy/AdvReac Type Severity Reaction Status Date / Time Penicillins Allergy Severe Anaphylaxis Verified 03/25/24 00:40 Assessment and Plan *Assessment and plan (1) HFrEF (heart failure with reduced ejection fraction): Status: Acute Category: Medical Code(s): I50.20 - Unspecified systolic (congestive) heart failure (2) COPD (chronic obstructive pulmonary disease): Status: Acute Qualifiers: COPD type: chronic bronchitis Chronic bronchitis type: unspecified Qualified Code(s): J42 - Unspecified chronic bronchitis Category: Medical Code(s): J44.9 - Chronic obstructive pulmonary disease, unspecified (3) Hypertension: Status: Acute Qualifiers: Hypertension type: primary hypertension Qualified Code(s): I10 - Essential (primary) hypertension Category: Medical Code(s): I10 - Essential (primary) hypertension (4) Diabetes mellitus: Status: Acute Qualifiers: Diabetes mellitus type: type 2 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 [employer] insulin use: with superintendent marine oil [employer] use Diabetes mellitus complication status: without complication Qualified Code(s): E11.9 - Type 2 diabetes mellitus without complications; Z79.4 - [facility] (current) use of insulin Category: Medical Code(s): E11.9 - Type 2 diabetes mellitus without complications (5) Hyperlipidemia: Status: Acute Qualifiers: Hyperlipidemia type: mixed hyperlipidemia Qualified Code(s): E78.2 - Mixed hyperlipidemia Category: Medical Code(s): E78.5 - Hyperlipidemia, unspecified (6) Peripheral arterial disease: Status: Acute Category: Medical Code(s): I73.9 - Peripheral vascular disease, unspecified (7) Anemia: Status: Acute Qualifiers: Anemia type: due to chronic kidney disease Chronic kidney disease stage: stage 4 (GFR 15-29) Qualified Code(s): N18.4 - Chronic kidney disease, stage 4 (severe); D63.1 - Anemia in chronic kidney disease Category: Medical Code(s): D64.9 - Anemia, unspecified (8) CKD stage 4 due to type 2 diabetes mellitus: Status: Acute Category: Medical Code(s): E11.22 - Type 2 diabetes mellitus with diabetic chronic kidney disease; N18.4 - Chronic kidney disease, stage 4 (severe) (9) Aortic stenosis, moderate: Status: Acute Category: Medical Code(s): I35.0 - Nonrheumatic aortic (valve) stenosis (10) Anasarca: Status: Acute Category: Medical Code(s): R60.1 - Generalized edema (11) Oliguria: Status: Acute Category: Medical Code(s): R34 - Anuria and oliguria (12) Elevated troponin level not due to acute coronary syndrome: Status: Acute Category: Medical Code(s): R79.89 - Other specified abnormal findings of blood chemistry Plan 1. HFrEF -continue IV bumex -Continue IV milrinone at 0.125 mcg/kg/min -Added one-time dose of IV Diuril 500 mg -In light of severe renal artery stenosis, will try adding IV nitroprusside and considering renal artery stenting 2. Oliguria -Possible ATN from contrast studies -Slowly improving 3. CKD, stage IV -Cr 4.2 with GFR 15 -possible component of ATN due to high contrast load from CT scans -bilateral DIEGO noted on Abd CTA 4. Aortic stenosis, moderate -Echo, 01/2024, 1.2 cm2 5. History of hypertension -Echo, 01/2024, EF 20% with grade 3 diastolic dysfunction 6. Peripheral arterial disease -s/p Left AKA -bilateral severe renal artery stenosis on abdominal CTA this admission -RLE with narrowing at popliteal but 3 vessel runoff into right foot 7. Anasarca on abdominal CTA -Cirrhosis of liver noted 8. Hyperlipidemia 9. CAD with elevated troponin this admission felt secondary to demand ischemia/strain from HFrEF -[facility], 04/08/2023, 3 ANGELA to LAD which jailed diagonal artery. Chronic RCA occlusion. Mod OM disease, med therapy. Discussed with Dr. Arce and Dr. Mcfadden Continue IV Bumex and IV milrinone Start IV Nipride to see if renal arteries will dilate and help with diuresis One time dose of diuril Labs in AM Consider renal arteriogram if nipride helps with diuresis
[2024-03-27] MEDS: MILRINONE LACTATE 20 MG in 0.9 % SODIUM CHLORIDE 80 ML 3.83 MG IV (14:09)
[2024-03-27] MEDS: NITROPRUSSIDE SODIUM 50 MG in DEXTROSE 5 % IN WATER 250 ML IV (15:06)
[2024-03-27] MEDS: SODIUM CHLORIDE 0.9% IV (16:30)
[2024-03-27] MEDS: CHLOROTHIAZIDE SODIUM IV (16:30)
[2024-03-27 16:44] LABS: POC Glucose,Bedside 123 (70-110)
[2024-03-27 17:11] LABS: Anion Gap 15.3 mEq/L (5-15); Calcium 8.1 mg/dl (8.4-10.2); Carbon Dioxide 21 mmol/L (22.0-30.0); Chloride 101 mmol/L (98-107); Creatinine Clearance Estimated 28 mL/min (50-200); Estimated Glomerular Filt Rate 14 ml/min (>60); GFR (African American) 17 ML/MIN (>60); Glucose 106 mg/dl (74-100); Potassium 5.3 mmoL/L (3.5-5.1); Sodium 132 mmol/L (136-145)
[2024-03-27 17:26] LABS: Blood Urea Nitrogen 87 mg/dl (9-20)
[2024-03-27] MEDS: TAMSULOSIN 0.4MG CAPSULE 0.4 MG PO (20:10)
[2024-03-27] MEDS: ATORVASTATIN 40MG TABLET 80 MG PO (20:10)
[2024-03-27] MEDS: PANTOPRAZOLE 40MG TABLET 40 MG PO (20:10)
[2024-03-27 20:25] LABS: POC Glucose,Bedside 126 (70-110)
[2024-03-27] MEDS: INSULIN GLARGINE 100 UNITS/ML 3ML FLEXPEN 30 UNIT SUBCUT (20:25)
[2024-03-28] VITALS (69 sets, daily range): BP systolic 119–158; BP diastolic 63–96; PULSE 85–109; RESP 7–19; TEMP 36.6–36.7; O2SAT 91–100; BMI 31.5
[2024-03-28] MEDS: BUMETANIDE 10 MG in 0.9 % SODIUM CHLORIDE 60 ML 20 MG IV ×5 (00:40→21:35)
[2024-03-28] MEDS: MORPHINE 4MG/ML SYRINGE 4 MG IV ×2 (04:09→09:05)
[2024-03-28 05:41] LABS: POC Glucose,Bedside 94 (70-110)
[2024-03-28 05:44] LABS: Basophils % 0.4 % (0.1-2.0); Eosinophils # 0.1 K/mm3 (0.0-0.4); Eosinophils % 3.1 % (0.1-12.0); Hematocrit 29.6 % (42.0-52.0); Hemoglobin 9.4 g/dL (14.1-18.0); Lymphocytes # 0.6 K/mm3 (0.7-4.5); Lymphocytes % 12.7 % (10-50); Mean Corpuscular HGB Conc 31.8 g/dL (31.8-35.4); Mean Corpuscular Hemoglobin 26.9 pg (27.0-31.2); Mean Corpuscular Volume 84.6 fl (80-94); Mean Platelet Volume 10.5 fl (7.4-10.4); Monocytes # 0.5 K/mm3 (0.1-1.0); Monocytes % 10.3 % (1.7-9.3); Neutrophils # 3.4 K/mm3 (1.8-7.8); Neutrophils % 73.3 % (37.0-80.0); Platelet Count 178 K/mm3 (142-424); Red Cell Distribution Width 18.2 % (11.5-17.5); White Blood Count 4.6 K/mm3 (4.8-10.8)
[2024-03-28 05:53] LABS: Lactic Acid 0.8 mmol/L (0.7-2.1)
[2024-03-28 05:56] LABS: Sodium 132 mmol/L (136-145)
[2024-03-28 05:57] LABS: Alanine Aminotransferase 19 U/L (12-78); Albumin Level 3.5 g/dl (3.5-5.0); Albumin/Globulin Ratio 1.3 (1.1-1.8); Alkaline Phosphatase 257 U/L (38-126); Aspartate Amino Transferase 45 U/L (17-59); Bilirubin,Total 1.5 mg/dl (0.2-1.3); Calcium 8.4 mg/dl (8.4-10.2); Carbon Dioxide 23 mmol/L (22.0-30.0); Chloride 99 mmol/L (98-107); Creatinine Clearance Estimated 27 mL/min (50-200); Estimated Glomerular Filt Rate 14 ml/min (>60); GFR (African American) 16 ML/MIN (>60); Globulin 2.6 g/dL (1.3-3.2); Glucose 82 mg/dl (74-100); Magnesium 2.1 mg/dl (1.6-2.3); Total Protein,Serum 6.1 g/dl (6.3-8.2)
[2024-03-28 06:07] LABS: Blood Urea Nitrogen 88 mg/dl (9-20)
[2024-03-28 06:22] LABS: Anion Gap 15.2 mEq/L (5-15); Potassium 5.2 mmoL/L (3.5-5.1)
[2024-03-28] MEDS: HYDRALAZINE HCL 25MG TABLET 50 MG PO ×3 (08:19→20:39)
[2024-03-28] MEDS: GABAPENTIN 300MG CAPSULE 300 MG PO ×3 (08:19→20:39)
[2024-03-28] MEDS: ASPIRIN EC 81MG TABLET 81 MG PO (08:19)
--- NOTE | 2024-03-28 09:05 | P.PN_ITS ---
Subjective Subjective Date: 03/28/24 Time: 09:05 Principal diagnosis: HFrEF, CKD Interval history: 58-year-old white male in bed in no acute distress. States he feels his breathing may be slightly better and his edema in his right leg may be slightly improved. Output increased to a liter and a half overnight Telemetry is sinus at 100 bpm Continues on IV milrinone and IV nipride Exam Data for Last 24 hours Vital signs and Labs for Last 24 Hours: Temp Pulse Resp BP Pulse Ox O2 Del Method O2 Flow Rate 97.8 F 99 H 9 L 145/87 H 99 Nasal Cannula 2 03/28/24 00:00 03/28/24 09:00 03/28/24 09:00 03/28/24 09:00 03/28/24 09:00 03/28/24 07:00 03/28/24 07:00 FiO2 3 03/26/24 07:58 Laboratory Results - last 24 hr 03/27/24 06:05: Magnesium 2.1, NT-Pro-B Natriuret Pep > 94188 H 03/27/24 11:42: POC Glucose 131 H 03/27/24 16:14: Sodium 132 L, Potassium 5.3 H, Chloride 101, Carbon Dioxide 21 L , Anion Gap 15.3 H, BUN 87 H, Creatinine 4.30 H, Estimated Creat Clear 28, Estimated GFR 14 L*, Est GFR ( Amer) 17 L*, Glucose 106 H D, Calcium 8.1 L 03/27/24 16:34: POC Glucose 123 H 03/27/24 20:14: POC Glucose 126 H 03/28/24 05:23: WBC 4.6 L D, RBC 3.50 L, Hgb 9.4 L, Hct 29.6 L, MCV 84.6, MCH 26.9 L, MCHC 31.8, RDW 18.2 H, Plt Count 178, MPV 10.5 H, Neut % (Auto) 73.3, Lymph % (Auto) 12.7, [place] % (Auto) 10.3 H, Eos % (Auto) 3.1, Baso % (Auto) 0.4, Neut # (Auto) 3.4, Lymph # (Auto) 0.6 L, [place] # (Auto) 0.5, Eos # (Auto) 0.1, Baso # (Auto) 0.0, Sodium 132 L, Potassium 5.2 H, Chloride 99, Carbon Dioxide 23, Anion Gap 15.2 H, BUN 88 H, Creatinine 4.50 H, Estimated Creat Clear 27, Estimated GFR 14 L*, Est GFR ( Amer) 16 L*, Glucose 82 D, Lactate 0.8, Calcium 8.4, Magnesium 2.1, Total Bilirubin 1.5 H, AST 45, ALT 19, Alkaline Phosphatase 257 H, Total Protein 6.1 L, Albumin 3.5, Globulin 2.6, Albumin/Globulin Ratio 1.3 03/28/24 05:35: POC Glucose 94 I & O for Last 24 hours: Intake & Output 03/25/24 03/26/24 03/27/24 03/28/24 11:59 11:59 11:59 11:59 Intake Total 480 / 480 623.667 / 506.802 4452.060 / 8553.720 5591.556 / 1238.556 Output Total 340 / 340 350 / 350 950 / 950 2074 / 2074 Balance 140 / 140 273.667 / 873.395 3855.060 / 1040.060 -836.444 / -836.444 Weight 214 lb 1.983 oz 225 lb 3.2 oz 228 lb 6.4 oz 233 lb 0.458 oz Constitutional Constitutional: no acute distress *Routine Respiratory Exam Respiratory: Present decreased breath sounds; Absent rhonchi or wheezes *Routine Cardiovascular Exam Cardiovascular: Present RRR and murmur; Absent gallop or rubs *Routine Extremities Exam Extremities: Present edema Progress Note: A&P Assessment and plan (1) HFrEF (heart failure with reduced ejection fraction): Status: Acute (2) COPD (chronic obstructive pulmonary disease): Status: Acute (3) Hypertension: Status: Acute (4) Diabetes mellitus: Status: Acute (5) Hyperlipidemia: Status: Acute (6) Peripheral arterial disease: Status: Acute (7) Anemia: Status: Acute (8) CKD stage 4 due to type 2 diabetes mellitus: Status: Acute (9) Aortic stenosis, moderate: Status: Acute (10) Anasarca: Status: Acute (11) Oliguria: Status: Acute (12) Elevated troponin level not due to acute coronary syndrome: Status: Acute Assessment and Plan Assessment and Plan for All Diagnoses:: 1. HFrEF -continue IV bumex -Continue IV milrinone at 0.125 mcg/kg/min -continue IV nitroprusside 2. Oliguria -Possible ATN from contrast studies -Slowly improving 3. CKD, stage IV -Cr 4.5 with GFR 14 -possible component of ATN due to high contrast load from CT scans -bilateral DIEGO noted on Abd CTA 4. Aortic stenosis, moderate -Echo, 01/2024, 1.2 cm2 5. History of hypertension -Echo, 01/2024, EF 20% with grade 3 diastolic dysfunction 6. Peripheral arterial disease -s/p Left AKA -bilateral severe renal artery stenosis on abdominal CTA this admission -RLE with narrowing at popliteal but 3 vessel runoff into right foot 7. Anasarca on abdominal CTA -Cirrhosis of liver noted 8. Hyperlipidemia 9. CAD with elevated troponin this admission felt secondary to demand ischemia/strain from HFrEF -[facility], 04/08/2023, 3 ANGELA to LAD which jailed diagonal artery. Chronic RCA occlusion. Mod OM disease, med therapy. Continue current meds. Monitor renal functions and output. Once renal functions trend down then will plan renal angiogram accordingly.
--- NOTE | 2024-03-28 15:39 | PC.NURSE ---
Patient able to diurese 1000 ml out during shift. VS stable and patient remained on 2LNC. Lung sounds diminished. Milrinone, bumex, and nipride drips continuing at current rates.
[2024-03-28] MEDS: MILRINONE LACTATE 20 MG in 0.9 % SODIUM CHLORIDE 80 ML 3.83 MG IV (16:19)
[2024-03-28 18:57] LABS: Chloride 98 mmol/L (98-107); Sodium 133 mmol/L (136-145)
[2024-03-28 18:59] LABS: Creatinine Clearance Estimated 27 mL/min (50-200); Estimated Glomerular Filt Rate 14 ml/min (>60); GFR (African American) 16 ML/MIN (>60)
[2024-03-28 19:00] LABS: Anion Gap 18.1 mEq/L (5-15); Calcium 8.5 mg/dl (8.4-10.2); Carbon Dioxide 23 mmol/L (22.0-30.0); Glucose 133 mg/dl (74-100)
[2024-03-28 19:06] LABS: Blood Urea Nitrogen 87 mg/dl (9-20)
[2024-03-28 19:10] LABS: Potassium 6.1 mmoL/L (3.5-5.1)
--- NOTE | 2024-03-28 19:24 | EXP.ACUTE.PN ---
Subjective *Date: 03/28/24 *Time: 22:40 Interval history: States he is breathing more comfortable today. Still complaining of pain in his right leg. Large afebrile. Having improved urine output. Patient fluid neutral yesterday, negative since midnight. Appears to be having a response to diuresis. Denies chest pain. States she is having bowel movements. Medical Exam Vital signs and Labs for Last 24 Hours: Vital Signs Temp Pulse Pulse Resp BP Pulse Ox O2 Del Method 03/28/24 19:00 18 158/91 H 99 Nasal Cannula 03/28/24 18:59 Nasal Cannula 03/28/24 18:31 Nasal Cannula 03/28/24 18:00 96 H 9 L 99 03/28/24 18:00 140/88 03/28/24 17:45 96 H 11 L 99 03/28/24 17:30 149/83 H 03/28/24 17:00 102 H 11 L 99 03/28/24 17:00 150/91 H 03/28/24 16:48 Nasal Cannula 03/28/24 16:30 96 H 9 L 99 03/28/24 16:00 97 H 03/28/24 16:00 Nasal Cannula 03/28/24 16:00 137/92 H 03/28/24 15:59 98 H 10 L 98 03/28/24 15:02 Nasal Cannula 03/28/24 15:00 98 H 18 149/92 H 99 Nasal Cannula 03/28/24 14:15 97 H 10 L 99 03/28/24 14:00 98 H 16 143/84 H 99 Room Air 03/28/24 13:00 98 H 14 99 03/28/24 13:00 136/81 03/28/24 13:00 Nasal Cannula 03/28/24 12:45 100 H 13 99 03/28/24 12:31 109 H 16 99 03/28/24 12:00 92 H 03/28/24 12:00 Nasal Cannula 03/28/24 12:00 103 H 14 149/84 H 98 Nasal Cannula 03/28/24 11:00 90 9 L 98 03/28/24 11:00 130/82 03/28/24 11:00 Nasal Cannula 03/28/24 10:15 99 H 12 99 03/28/24 10:00 148/75 H 03/28/24 10:00 100 H 19 148/75 H 99 03/28/24 09:45 95 H 13 99 03/28/24 09:00 Nasal Cannula 03/28/24 09:00 99 H 9 L 99 03/28/24 09:00 145/87 H 03/28/24 08:45 101 H 19 99 03/28/24 08:15 98 H 13 98 03/28/24 08:00 100 H 03/28/24 08:00 Nasal Cannula 03/28/24 08:00 101 H 14 143/80 H 98 03/28/24 07:00 Nasal Cannula 03/28/24 07:00 92 H 12 146/92 H 91 L Nasal Cannula 03/28/24 06:00 94 H 10 L 137/88 98 Nasal Cannula 03/28/24 06:00 137/88 03/28/24 05:45 95 H 14 98 03/28/24 05:31 98 H 9 L 97 03/28/24 05:31 148/81 H 03/28/24 05:30 96 H 11 L 97 03/28/24 05:15 90 12 97 03/28/24 05:00 85 7 L 98 03/28/24 05:00 89 16 119/63 98 03/28/24 05:00 Nasal Cannula 03/28/24 04:00 91 H 98 Nasal Cannula 03/28/24 04:00 139/87 03/28/24 04:00 102 H 15 139/87 99 Nasal Cannula 03/28/24 04:00 100 H 03/28/24 03:45 97 H 13 98 03/28/24 03:30 96 H 10 L 98 03/28/24 03:15 94 H 12 99 03/28/24 03:00 Nasal Cannula 03/28/24 03:00 92 H 15 120/87 98 Nasal Cannula 03/28/24 03:00 120/87 03/28/24 02:45 92 H 15 98 03/28/24 02:30 93 H 11 L 98 03/28/24 02:30 139/87 03/28/24 02:15 94 H 11 L 98 03/28/24 02:00 98 H 16 127/75 97 Nasal Cannula 03/28/24 02:00 127/75 03/28/24 01:45 93 H 11 L 98 03/28/24 01:31 121/64 03/28/24 01:31 98 H 14 96 03/28/24 01:30 98 H 11 L 98 03/28/24 01:15 91 H 10 L 98 03/28/24 01:00 Nasal Cannula 03/28/24 01:00 94 H 10 L 143/89 H 99 Nasal Cannula 03/28/24 01:00 143/89 H 03/28/24 00:45 13 03/28/24 00:30 13 03/28/24 00:30 129/78 03/28/24 00:15 91 H 15 98 03/28/24 00:00 90 03/28/24 00:00 90 98 Nasal Cannula 03/28/24 00:00 97.8 F 93 H 11 L 144/95 H 99 Nasal Cannula 03/28/24 00:00 144/95 H 03/27/24 23:55 Nasal Cannula 03/27/24 23:45 94 H 15 99 03/27/24 23:31 144/84 H 03/27/24 23:31 43 L 10 L 86 L 03/27/24 23:30 41 L 15 82 L 03/27/24 23:30 151/87 H 03/27/24 23:15 92 H 14 97 03/27/24 23:00 86 8 L 97 03/27/24 23:00 Nasal Cannula 03/27/24 23:00 88 12 118/88 97 Nasal Cannula 03/27/24 22:59 88 9 L 97 03/27/24 22:45 86 8 L 98 03/27/24 22:30 88 9 L 98 03/27/24 22:30 134/89 03/27/24 22:15 89 9 L 98 03/27/24 22:00 89 9 L 141/85 H 97 03/27/24 22:00 141/85 H 03/27/24 21:45 88 8 L 97 03/27/24 21:32 93 H 15 99 03/27/24 21:32 137/81 03/27/24 21:30 94 H 15 96 03/27/24 21:15 94 H 14 98 03/27/24 21:00 90 9 L 97 03/27/24 21:00 147/84 H 03/27/24 21:00 90 20 147/84 H 99 BiPAP 03/27/24 20:45 90 11 L 98 03/27/24 20:33 Nasal Cannula 03/27/24 20:30 91 H 11 L 97 03/27/24 20:30 136/78 03/27/24 20:15 96 H 17 97 03/27/24 20:00 90 03/27/24 20:00 93 H 97 Nasal Cannula 03/27/24 20:00 89 10 L 96 03/27/24 20:00 97.8 F 91 H 18 134/84 97 Nasal Cannula 03/27/24 19:45 91 H 17 98 03/27/24 19:30 89 11 L 97 03/27/24 19:30 139/79 O2 Flow Rate FiO2 03/28/24 19:00 2 03/28/24 18:59 2 28 03/28/24 18:31 2 03/28/24 18:00 03/28/24 18:00 03/28/24 17:45 03/28/24 17:30 03/28/24 17:00 03/28/24 17:00 03/28/24 16:48 2 03/28/24 16:30 03/28/24 16:00 03/28/24 16:00 2 03/28/24 16:00 03/28/24 15:59 03/28/24 15:02 2 03/28/24 15:00 2 03/28/24 14:15 03/28/24 14:00 03/28/24 13:00 03/28/24 13:00 03/28/24 13:00 2 03/28/24 12:45 03/28/24 12:31 03/28/24 12:00 03/28/24 12:00 2 03/28/24 12:00 2 03/28/24 11:00 03/28/24 11:00 03/28/24 11:00 2 03/28/24 10:15 03/28/24 10:00 03/28/24 10:00 03/28/24 09:45 03/28/24 09:00 2 03/28/24 09:00 03/28/24 09:00 03/28/24 08:45 03/28/24 08:15 03/28/24 08:00 03/28/24 08:00 2 03/28/24 08:00 03/28/24 07:00 2 03/28/24 07:00 2 03/28/24 06:00 2 03/28/24 06:00 03/28/24 05:45 03/28/24 05:31 03/28/24 05:31 03/28/24 05:30 03/28/24 05:15 03/28/24 05:00 03/28/24 05:00 03/28/24 05:00 2 03/28/24 04:00 2 03/28/24 04:00 03/28/24 04:00 2 03/28/24 04:00 03/28/24 03:45 03/28/24 03:30 03/28/24 03:15 03/28/24 03:00 2 03/28/24 03:00 2 03/28/24 03:00 03/28/24 02:45 03/28/24 02:30 03/28/24 02:30 03/28/24 02:15 03/28/24 02:00 2 03/28/24 02:00 03/28/24 01:45 03/28/24 01:31 03/28/24 01:31 03/28/24 01:30 03/28/24 01:15 03/28/24 01:00 2 03/28/24 01:00 2 03/28/24 01:00 03/28/24 00:45 03/28/24 00:30 03/28/24 00:30 03/28/24 00:15 03/28/24 00:00 03/28/24 00:00 2 03/28/24 00:00 2 03/28/24 00:00 03/27/24 23:55 2 03/27/24 23:45 03/27/24 23:31 03/27/24 23:31 03/27/24 23:30 03/27/24 23:30 03/27/24 23:15 03/27/24 23:00 03/27/24 23:00 2 03/27/24 23:00 2 03/27/24 22:59 03/27/24 22:45 03/27/24 22:30 03/27/24 22:30 03/27/24 22:15 03/27/24 22:00 03/27/24 22:00 03/27/24 21:45 03/27/24 21:32 03/27/24 21:32 03/27/24 21:30 03/27/24 21:15 03/27/24 21:00 03/27/24 21:00 03/27/24 21:00 03/27/24 20:45 03/27/24 20:33 2 03/27/24 20:30 03/27/24 20:30 03/27/24 20:15 03/27/24 20:00 03/27/24 20:00 2 03/27/24 20:00 03/27/24 20:00 2 03/27/24 19:45 03/27/24 19:30 03/27/24 19:30 Intake and Output 03/28/24 03/28/24 03/28/24 07:59 15:59 23:59 Intake Total 663.334 / 1776.245 661.244 / 1776.245 451.667 / 1776.245 Output Total 1400 / 2400 1000 / 2400 Balance -736.666 / -623.755 -338.756 / -623.755 451.667 / -623.755 Intake: Intake, Oral Amount 480 / 1320 480 / 1320 360 / 1320 Intake, Total IV Amount 183.334 / 456.245 181.244 / 456.245 91.667 / 456.245 Output: Output, Urine Amount 1400 / 2400 1000 / 2400 Other: Number of Unmeasured Voids 0 Weight 105.7 kg Patient Weight 03/28/24 23:59 Weight 105.7 kg Laboratory Results - last 24 hr 03/27/24 20:14: POC Glucose 126 H 03/28/24 05:23: WBC 4.6 L D, RBC 3.50 L, Hgb 9.4 L, Hct 29.6 L, MCV 84.6, MCH 26.9 L, MCHC 31.8, RDW 18.2 H, Plt Count 178, MPV 10.5 H, Neut % (Auto) 73.3, Lymph % (Auto) 12.7, [place] % (Auto) 10.3 H, Eos % (Auto) 3.1, Baso % (Auto) 0.4, Neut # (Auto) 3.4, Lymph # (Auto) 0.6 L, [place] # (Auto) 0.5, Eos # (Auto) 0.1, Baso # (Auto) 0.0, Sodium 132 L, Potassium 5.2 H, Chloride 99, Carbon Dioxide 23, Anion Gap 15.2 H, BUN 88 H, Creatinine 4.50 H, Estimated Creat Clear 27, Estimated GFR 14 L*, Est GFR ( Amer) 16 L*, Glucose 82 D, Lactate 0.8, Calcium 8.4, Magnesium 2.1, Total Bilirubin 1.5 H, AST 45, ALT 19, Alkaline Phosphatase 257 H, Total Protein 6.1 L, Albumin 3.5, Globulin 2.6, Albumin/Globulin Ratio 1.3 03/28/24 05:35: POC Glucose 94 03/28/24 18:19: Sodium 133 L, Potassium 6.1 H*, Chloride 98, Carbon Dioxide 23, Anion Gap 18.1 H, BUN 87 H, Creatinine 4.50 H, Estimated Creat Clear 27, Estimated GFR 14 L*, Est GFR ( Amer) 16 L*, Glucose 133 H D, Calcium 8.5 I & O for Labs for Last 24 Hours: Intake & Output 03/25/24 03/26/24 03/27/24 03/28/24 23:59 23:59 23:59 23:59 Intake Total 743.500 / 082.844 7804.167 / 5180.227 6557.282 / 8406.873 8909.245 / 1776.245 Output Total 490 / 490 425 / 825 1400 / 1400 2400 / 2400 Balance 253.500 / 253.500 920.167 / 925.167 180.282 / 180.282 -623.755 / -623.755 Weight 97.125 kg 102.149 kg 103.6 kg 105.7 kg Microbiology Reports for the Last 24 Hours: Microbiology 03/24/24 18:10 Blood Blood Culture - Preliminary NO GROWTH AFTER 4 DAYS 03/24/24 17:35 Blood Blood Culture - Preliminary NO GROWTH AFTER 4 DAYS Constitutional: Present mild distress, obese, chronically ill appearing and cooperative Head: Present atraumatic and normocephalic ENT: Present normal exam Neck: Present normal inspection Respiratory: Present prolonged expiratory phase, crackles (Bases bilateral) and diminished air movement; Absent rhonchi or wheezes Cardiac: Present Reg Rate and Rhythm and Systolic Murmur GI: Present soft, distention and normal bowel sounds; Absent tenderness Extremities: Present normal inspection, full ROM and edema (4+ edema to abdomen; weeping from right leg improving) Comment:: Left AKA Skin: Present intact and erythema (Right lower extremity, secondary to edema.) Neuro: Present Grossly Intact, alert, awake, oriented x 3 and moves all extremities Assessment and Plan *Assessment and plan (1) HFrEF (heart failure with reduced ejection fraction): Status: Acute Category: Medical Code(s): I50.20 - Unspecified systolic (congestive) heart failure (2) Ischemic cardiomyopathy: Status: Acute Category: Medical Code(s): I25.5 - Ischemic cardiomyopathy (3) Peripheral arterial disease: Status: Acute Category: Medical Code(s): I73.9 - Peripheral vascular disease, unspecified (4) Hyperkalemia: Status: Acute Category: Medical Code(s): E87.5 - Hyperkalemia (5) Oliguria: Status: Acute Category: Medical Code(s): R34 - Anuria and oliguria (6) CKD stage 4 due to type 2 diabetes mellitus: Status: Acute Category: Medical Code(s): E11.22 - Type 2 diabetes mellitus with diabetic chronic kidney disease; N18.4 - Chronic kidney disease, stage 4 (severe) (7) Hyperlipidemia: Status: Acute Qualifiers: Hyperlipidemia type: mixed hyperlipidemia Qualified Code(s): E78.2 - Mixed hyperlipidemia Category: Medical Code(s): E78.5 - Hyperlipidemia, unspecified (8) Diabetes mellitus: Status: Acute Qualifiers: Diabetes mellitus complication status: without complication 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: with penitentiary use Diabetes mellitus type: type 2 Qualified Code(s): E11.9 - Type 2 diabetes mellitus without complications; Z79.4 - salvage determiner (current) use of insulin Category: Medical Code(s): E11.9 - Type 2 diabetes mellitus without complications (9) COPD (chronic obstructive pulmonary disease): Status: Acute Qualifiers: COPD type: chronic bronchitis Chronic bronchitis type: unspecified Qualified Code(s): J42 - Unspecified chronic bronchitis Category: Medical Code(s): J44.9 - Chronic obstructive pulmonary disease, unspecified (10) Hypertension: Status: Acute Qualifiers: Hypertension type: primary hypertension Qualified Code(s): I10 - Essential (primary) hypertension Category: Medical Code(s): I10 - Essential (primary) hypertension (11) Non-STEMI (non-ST elevated myocardial infarction): Status: Resolved Category: Medical Code(s): I21.4 - Non-ST elevation (NSTEMI) myocardial infarction (12) Chronic respiratory failure: Status: Acute Category: Medical Code(s): J96.10 - Chronic respiratory failure, unspecified whether with hypoxia or hypercapnia (13) PVD (peripheral vascular disease) with claudication: Status: Acute Category: Medical Code(s): I73.9 - Peripheral vascular disease, unspecified (14) Pleural effusion: Status: Acute Category: Medical Code(s): J90 - Pleural effusion, not elsewhere classified (15) Self-care deficit: Status: Acute Category: Medical Code(s): Z78.9 - Other specified health status (16) Aortic stenosis, moderate: Status: Acute Category: Medical Code(s): I35.0 - Nonrheumatic aortic (valve) stenosis (17) Anasarca: Status: Acute Category: Medical Code(s): R60.1 - Generalized edema (18) Cirrhosis: Status: Acute Category: Medical Code(s): K74.60 - Unspecified cirrhosis of liver Plan This is a 58-year-old male being admitted for acute on chronic CHF exacerbation, severe volume overload with anasarca. Condition complicated by his poorly controlled diabetes, peripheral vascular disease, CKD 4. Continues to require oxygen, though improved to 2 L. Being able to respond to diuresis and milrinone/nitroprusside drip. Negative this morning. Urine light yellow. Breathing over more comfortably. Continue current regimen. Cardiology assisting with care. Monitoring kidney function closely. Patient's condition serious, prognosis guarded. Monitoring kidney function closely as he may necessitate transfer to higher level of care if kidney function worsens and urine output decreases. Problems addressed as follows: #Acute on chronic hypoxic respiratory failure HFrEF exacerbation NSTEMI type II CKD stage IV Oliguria, severe exacerbation of kidney failure ? History of CAD status post 3 stents in March. ? Continue Bumex drip at 2 mg/h. Continue milrinone and nitroprusside. Having response. - Suspect component of ATN given prolonged heart failure, worsening edema, contrast load on admission, cirrhosis. Severe volume overload noted. Globally overloaded with swelling in leg, ascites in abdomen, effusions bilaterally. -Repeat BMP ordered for this afternoon, repeat CBC, CMP, magnesium ordered for the morning. Close monitoring of electrolytes with diuresis, monitoring for toxicity. -Sodium 132, chloride 99. Potassium 5.2, magnesium 2.1. BUN 88, creatinine 4.5. -Increase Lokelma to 3 times a day for hyperkalemia. - Anticipate bump in kidney function while we aggressively diuresed, anticipate function will improve with better perfusion and improvement in volume status as he is making good urine. ? BNP elevated at 63k on admission; repeat ordered and pending - ECHO earlier this month shows LVEF 20% with similar inferior akinesis as March this year, had been LVEF 30% earlier this. Patient does not want LifeVest at this time after extensively discussing risks and benefits. - Continue aspirin, Plavix 75 mg. ? Given patient's advanced CKD stage IV, unable to start NARESH/ARB/ARNI, MRA, or SGLT2i. -Continue to hold isosorbide and metoprolol in the setting of his cirrhosis and concern for impaired renal perfusion. Allow for permissive hypertension. Continue hydralazine 50 mg 3 times a day #Physical deconditioning ? Previously recommended SNF placement, patient declined to go. Strong concern about his ability to care for himself at home. Therapy working with him at this time. Continues to need SNF therapy, patient states he will go home with a wheelchair. Has no desire to go to rehab. Type 2 diabetes Diabetic neuropathy -Hemoglobin A1c 7.8 1 month ago; glucose this morning 82 -Continue Lantus to 30 units nightly, continue sliding scale insulin and fingersticks ACHS -SSI for additional glycemic control COPD -Not in acute exacerbation, baseline oxygen 1 to 2 L. Increased oxygen requirement due to volume overload. Tolerating 2 L at this time -DuoNebs as needed, Continue Dulera -Maintain SpO2 greater than 90% -WBC 7.3, hemoglobin 10. HTN HLD -Continue statin, hydralazine as above CODE STATUS: Full code Surrogate decision maker: Saurabh [phone] Lovenox 30 mg subcu daily ICU/Critical care attestation This patient is critically ill with 35 minutes devoted solely to this patient managing life/organ supporting interventions that required physician assessment. This includes time spent making adjustments in ventilator settings, IV fluid administration, titration of pressors, adjustments of medications, discussion of patient with consultants and other care providers as well as updating patient and/or family (if patient by virtue of his/her condition is unable to participate in decision making). This does not include time spent performing separately billed procedures. Time is not concurrent with that of other providers.
[2024-03-28] MEDS: ATORVASTATIN 40MG TABLET 80 MG PO (20:39)
[2024-03-28] MEDS: PANTOPRAZOLE 40MG TABLET 40 MG PO (20:39)
[2024-03-28] MEDS: TAMSULOSIN 0.4MG CAPSULE 0.4 MG PO (20:39)
[2024-03-28] MEDS: LOKELMA 5GM PACKET 10 GM PO (20:40)
[2024-03-28] MEDS: INSULIN GLARGINE 100 UNITS/ML 3ML FLEXPEN 30 UNIT SUBCUT (21:01)
[2024-03-28 23:19] LABS: Potassium 5.6 mmoL/L (3.5-5.1)
[2024-03-29] VITALS (39 sets, daily range): BP systolic 130–161; BP diastolic 74–97; PULSE 91–106; RESP 8–22; TEMP 36.6–37.2; O2SAT 93–100; BMI 30.7
[2024-03-29] MEDS: BUMETANIDE 10 MG in 0.9 % SODIUM CHLORIDE 60 ML 20 MG IV ×5 (02:22→21:12)
--- NOTE | 2024-03-29 03:50 | EXP.EVENT.NO ---
Nursing in ICU reported to me that patient had coughed up a fairly good sized bright red blood clot., Per the patient he had done this before in the past. Patient H&H has slowly decreased since coming to the hospital. But has also received multiple lab draws. Exam: Patient is resting well at this time showing no signs of distress at all signs are good oxygen saturation remaining stable. Patient has been able to sleep deeply. Plan : Continuing to monitor BUN and creatinine kidney function. The patient has labs ordered for the morning will once again check for H&H and platelet count. Have added PT/INR to check for coagulation factor. I have been taking care of the patient for several night shifts and this is the first time I have heard that he has coughed up bright red blood. As noted it was a one-time event and there is no sign of any distress at this time
--- NOTE | 2024-03-29 04:27 | PC.NURSE ---
PT COUGHED UP QUARTER SIZED BRIGHT RED BLOOD CLOT AFTER COUGHING AGGRESSIVELY. VOUCHER CLERK MADE AWARE. NNO AT THIS TIME.
--- NOTE | 2024-03-29 05:19 | PC.NURSE ---
Pt a/o x4. Pt has tolerated home o2 well with o2 sat in upper 90s. Pt has not produced any more blood clots while coughing. Lung sounds diminished. Pt complains of pain in RLE while moving it and being turned but states it does not hurt him at rest. RLE very red and swollen, skin tight. Leg with 2+ edema, foot with 3+ edema. Pulse can be heard easily with doppler but unable to palpate. Pt has remained V paced w/ NSR/ST and inverted T waves on telemetry. Pure wick in place draining clear yellow urine. 2049cc measured urine output and 1 unmeasured void due to purewick malfunction. Bed bath provided. Call light within reach.
[2024-03-29 06:39] LABS: Basophils % 0.5 % (0.1-2.0); Eosinophils # 0.1 K/mm3 (0.0-0.4); Eosinophils % 1.7 % (0.1-12.0); Hemoglobin 9.2 g/dL (14.1-18.0); Lymphocytes # 0.5 K/mm3 (0.7-4.5); Lymphocytes % 11.9 % (10-50); Mean Corpuscular HGB Conc 31.7 g/dL (31.8-35.4); Mean Corpuscular Hemoglobin 26.4 pg (27.0-31.2); Mean Corpuscular Volume 83.3 fl (80-94); Mean Platelet Volume 10.8 fl (7.4-10.4); Monocytes # 0.4 K/mm3 (0.1-1.0); Monocytes % 9.7 % (1.7-9.3); Neutrophils # 3.1 K/mm3 (1.8-7.8); Platelet Count 174 K/mm3 (142-424); Red Blood Count 3.48 M/mm3 (4.60-6.20); Red Cell Distribution Width 17.8 % (11.5-17.5); White Blood Count 4.1 K/mm3 (4.8-10.8)
[2024-03-29 06:49] LABS: Alanine Aminotransferase 18 U/L (12-78); Albumin Level 3.6 g/dl (3.5-5.0); Albumin/Globulin Ratio 1.3 (1.1-1.8); Alkaline Phosphatase 253 U/L (38-126); Anion Gap 15.3 mEq/L (5-15); Aspartate Amino Transferase 46 U/L (17-59); Bilirubin,Total 1.4 mg/dl (0.2-1.3); Calcium 8.7 mg/dl (8.4-10.2); Carbon Dioxide 25 mmol/L (22.0-30.0); Chloride 98 mmol/L (98-107); Creatinine Clearance Estimated 26 mL/min (50-200); Estimated Glomerular Filt Rate 13 ml/min (>60); GFR (African American) 16 ML/MIN (>60); Globulin 2.7 g/dL (1.3-3.2); Glucose 64 mg/dl (74-100); INR 1.13 (0.9-1.1); Magnesium 2.1 mg/dl (1.6-2.3); Phosphorous 7.8 mg/dl (2.5-4.5); Potassium 5.3 mmoL/L (3.5-5.1); Prothrombin Time 12.5 seconds (10.1-12.5); Sodium 133 mmol/L (136-145); Total Protein,Serum 6.3 g/dl (6.3-8.2)
[2024-03-29 08:19] LABS: Blood Urea Nitrogen 92 mg/dl (9-20)
--- NOTE | 2024-03-29 09:23 | P.PN_ITS ---
Subjective Subjective Date: 03/29/24 Time: 09:24 Principal diagnosis: HFrEF, CKD Interval history: 58-year-old white male in bed in no acute distress. Appears to have less facial edema today. He feels like the swelling in his leg is slowly improving. Exam Data for Last 24 hours Vital signs and Labs for Last 24 Hours: Temp Pulse Resp BP Pulse Ox O2 Del Method O2 Flow Rate 99 F 102 H 12 149/97 H 98 Nasal Cannula 2 03/29/24 08:00 03/29/24 09:18 03/29/24 09:18 03/29/24 09:19 03/29/24 09:18 03/29/24 09:00 03/29/24 09:00 FiO2 28 03/28/24 18:59 Laboratory Results - last 24 hr 03/28/24 18:19: Sodium 133 L, Potassium 6.1 H*, Chloride 98, Carbon Dioxide 23, Anion Gap 18.1 H, BUN 87 H, Creatinine 4.50 H, Estimated Creat Clear 27, Estimated GFR 14 L*, Est GFR ( Amer) 16 L*, Glucose 133 H D, Calcium 8.5 03/28/24 23:03: Potassium 5.6 H 03/29/24 06:11: WBC 4.1 L, RBC 3.48 L, Hgb 9.2 L, Hct 29.0 L, MCV 83.3, MCH 26.4 L, MCHC 31.7 L, RDW 17.8 H, Plt Count 174, MPV 10.8 H, Neut % (Auto) 76.0, Lymph % (Auto) 11.9, [place] % (Auto) 9.7 H, Eos % (Auto) 1.7, Baso % (Auto) 0.5, Neut # (Auto) 3.1, Lymph # (Auto) 0.5 L, [place] # (Auto) 0.4, Eos # (Auto) 0.1, Baso # (Auto) 0.0, PT 12.5, INR 1.13 H, Sodium 133 L, Potassium 5.3 H, Chloride 98, Carbon Dioxide 25, Anion Gap 15.3 H, BUN 92 H, Creatinine 4.60 H, Estimated Creat Clear 26, Estimated GFR 13 L*, Est GFR ( Amer) 16 L*, Glucose 64 L D, Calcium 8.7, Phosphorus 7.8 H, Magnesium 2.1, Total Bilirubin 1.4 H, AST 46, ALT 18, Alkaline Phosphatase 253 H, Total Protein 6.3, Albumin 3.6, Globulin 2.7, Albumin/Globulin Ratio 1.3 I & O for Last 24 hours: Intake & Output 03/26/24 03/27/24 03/28/24 03/29/24 11:59 11:59 11:59 11:59 Intake Total 623.667 / 978.128 3866.060 / 0740.939 7262.556 / 9438.482 4764.653 / 2512.653 Output Total 350 / 350 950 / 950 2075 / 2075 3700 / 3700 Balance 273.667 / 420.326 4194.060 / 1040.060 -736.444 / -736.444 -1187.347 / - 1187.347 Weight 225 lb 3.2 oz 228 lb 6.4 oz 233 lb 0.458 oz 226 lb 6.4 oz Microbiology Reports for the Last 24 Hours: Microbiology 03/24/24 18:10 Blood Blood Culture - Preliminary NO GROWTH AFTER 4 DAYS 03/24/24 17:35 Blood Blood Culture - Preliminary NO GROWTH AFTER 4 DAYS Constitutional Constitutional: no acute distress *Routine Respiratory Exam Respiratory: Present CTA bilaterally *Routine Cardiovascular Exam Cardiovascular: Present RRR and murmur; Absent gallop or rubs *Routine Extremities Exam Extremities: Present edema Progress Note: A&P Assessment and plan (1) HFrEF (heart failure with reduced ejection fraction): Status: Acute (2) Ischemic cardiomyopathy: Status: Acute (3) Peripheral arterial disease: Status: Acute (4) Hyperkalemia: Status: Acute (5) Oliguria: Status: Acute (6) CKD stage 4 due to type 2 diabetes mellitus: Status: Acute (7) Hyperlipidemia: Status: Acute (8) Diabetes mellitus: Status: Acute (9) COPD (chronic obstructive pulmonary disease): Status: Acute (10) Hypertension: Status: Acute (11) Non-STEMI (non-ST elevated myocardial infarction): Status: Resolved (12) Chronic respiratory failure: Status: Acute (13) PVD (peripheral vascular disease) with claudication: Status: Acute (14) Pleural effusion: Status: Acute (15) Self-care deficit: Status: Acute (16) Aortic stenosis, moderate: Status: Acute (17) Anasarca: Status: Acute (18) Cirrhosis: Status: Acute Assessment and Plan Assessment and Plan for All Diagnoses:: 1. HFrEF -continue IV bumex -Continue IV milrinone at 0.125 mcg/kg/min -continue IV nitroprusside 2. Oliguria -Possible ATN from contrast studies -Slowly improving 3. CKD, stage IV -Cr 4.6 with GFR 13 -possible component of ATN due to high contrast load from CT scans -bilateral DIEGO noted on Abd CTA 4. Aortic stenosis, moderate -Echo, 01/2024, 1.2 cm2 5. History of hypertension -Echo, 01/2024, EF 20% with grade 3 diastolic dysfunction 6. Peripheral arterial disease -s/p Left AKA -bilateral severe renal artery stenosis on abdominal CTA this admission -RLE with narrowing at popliteal but 3 vessel runoff into right foot 7. Anasarca on abdominal CTA -Cirrhosis of liver noted 8. Hyperlipidemia 9. CAD with elevated troponin this admission felt secondary to demand ischemia/strain from HFrEF -[facility], 04/08/2023, 3 ANGELA to LAD which jailed diagonal artery. Chronic RCA occlusion. Mod OM disease, med therapy. Continue diuresis continue milrinone (will stop tonight) continue nitroprusside Pt wt now decreasing and urine output increasing
[2024-03-29] MEDS: HYDRALAZINE HCL 25MG TABLET 50 MG PO ×3 (09:57→20:14)
[2024-03-29] MEDS: GABAPENTIN 300MG CAPSULE 300 MG PO ×3 (09:57→20:13)
[2024-03-29] MEDS: ASPIRIN EC 81MG TABLET 81 MG PO (09:58)
[2024-03-29] MEDS: LOKELMA 5GM PACKET 10 GM PO ×2 (09:58→13:19)
[2024-03-29 10:02] LABS: POC Glucose,Bedside 116 (70-110)
[2024-03-29 10:02] LABS: POC Glucose,Bedside 138 (70-110)
[2024-03-29 10:02] LABS: POC Glucose,Bedside 134 (70-110)
[2024-03-29 10:02] LABS: POC Glucose,Bedside 81 (70-110)
--- NOTE | 2024-03-29 11:16 | DIET.NUTRFU ---
Patient reported fair appetite, declined education, he reports he does his best. LBM 03/25
[2024-03-29 11:49] LABS: POC Glucose,Bedside 103 (70-110)
[2024-03-29 12:48] LABS: Iron 33 ug/dL (49-181)
[2024-03-29 12:57] LABS: Total Iron Binding Capacity 336 ug/dL (261-462)
[2024-03-29 13:24] LABS: Ferritin 125 ng/ml (17.9-464)
[2024-03-29] MEDS: IRON SUCROSE COMPLEX 200 MG in 0.9 % SODIUM CHLORIDE 100 ML 220 MG IV (13:58)
[2024-03-29] MEDS: NITROPRUSSIDE SODIUM 50 MG in DEXTROSE 5 % IN WATER 250 ML IV (16:25)
[2024-03-29 17:53] LABS: POC Glucose,Bedside 165 (70-110)
[2024-03-29] MEDS: MILRINONE LACTATE 20 MG in 0.9 % SODIUM CHLORIDE 80 ML 3.83 MG IV (19:29)
[2024-03-29] MEDS: ATORVASTATIN 40MG TABLET 80 MG PO (20:14)
[2024-03-29] MEDS: INSULIN GLARGINE 100 UNITS/ML 3ML FLEXPEN 30 UNIT SUBCUT (20:16)
[2024-03-29 20:18] LABS: POC Glucose,Bedside 162 (70-110)
[2024-03-29] MEDS: TAMSULOSIN 0.4MG CAPSULE 0.4 MG PO (20:18)
[2024-03-29] MEDS: PANTOPRAZOLE 40MG TABLET 40 MG PO (20:18)
[2024-03-29] MEDS: humaLOG 100 UNITS/ML 10ML VIAL (SSI) SUBCUT (20:21)
--- NOTE | 2024-03-29 21:22 | EXP.PN ---
Subjective *Date: 03/29/24 *Time: 21:22 Interval history: Diuresing well, no chest pain or SOB. Exam Data for Last 24 hours Vital signs and Labs for Last 24 Hours: Temp Pulse Resp BP Pulse Ox O2 Del Method O2 Flow Rate 97.8 F 94 H 10 L 142/84 H 96 Nasal Cannula 1 03/29/24 20:00 03/29/24 21:04 03/29/24 21:04 03/29/24 21:00 03/29/24 21:04 03/29/24 21:00 03/29/24 21:00 FiO2 28 03/28/24 18:59 Laboratory Results - last 24 hr 03/28/24 11:02: POC Glucose 138 H 03/28/24 16:23: POC Glucose 134 H 03/28/24 20:48: POC Glucose 116 H 03/28/24 23:03: Potassium 5.6 H 03/29/24 05:03: POC Glucose 81 03/29/24 06:11: WBC 4.1 L, RBC 3.48 L, Hgb 9.2 L, Hct 29.0 L, MCV 83.3, MCH 26.4 L, MCHC 31.7 L, RDW 17.8 H, Plt Count 174, MPV 10.8 H, Neut % (Auto) 76.0, Lymph % (Auto) 11.9, [place] % (Auto) 9.7 H, Eos % (Auto) 1.7, Baso % (Auto) 0.5, Neut # (Auto) 3.1, Lymph # (Auto) 0.5 L, [place] # (Auto) 0.4, Eos # (Auto) 0.1, Baso # (Auto) 0.0, PT 12.5, INR 1.13 H, Sodium 133 L, Potassium 5.3 H, Chloride 98, Carbon Dioxide 25, Anion Gap 15.3 H, BUN 92 H, Creatinine 4.60 H, Estimated Creat Clear 26, Estimated GFR 13 L*, Est GFR ( Amer) 16 L*, Glucose 64 L D, Calcium 8.7, Phosphorus 7.8 H, Magnesium 2.1, Total Bilirubin 1.4 H, AST 46, ALT 18, Alkaline Phosphatase 253 H, Total Protein 6.3, Albumin 3.6, Globulin 2.7, Albumin/Globulin Ratio 1.3 03/29/24 06:30: Iron 33 L, TIBC 336, Iron Saturation 9.66747 L, Ferritin 125 03/29/24 11:42: POC Glucose 103 03/29/24 16:14: POC Glucose 165 H 03/29/24 20:11: POC Glucose 162 H I & O for Last 24 hours: Intake & Output 03/26/24 03/27/24 03/28/24 03/29/24 23:59 23:59 23:59 23:59 Intake Total 1345.167 / 5043.517 1377.282 / 8413.543 1140.245 / 0526.297 3931.626 / 2393.626 Output Total 425 / 825 1400 / 1400 3225 / 3625 5375 / 5375 Balance 920.167 / 925.167 180.282 / 180.282 -1348.755 / -1748.755 -2981.374 / -2981.374 Weight 102.149 kg 103.6 kg 105.7 kg 102.693 kg Microbiology Reports for the Last 24 Hours: Microbiology 03/24/24 17:35 Blood Blood Culture - Final NO GROWTH AFTER 5 DAYS 03/24/24 18:10 Blood Blood Culture - Final NO GROWTH AFTER 5 DAYS Constitutional Constitutional: no acute distress Comments: Generalized anasarca *Routine HEENT Exam Head: Present normocephalic Eye: Present EOMI and PERRL ENT: Present mucous membranes moist *Routine Neck Exam Neck: Present supple; Absent lymphadenopathy *Routine Respiratory Exam Respiratory: Present CTA bilaterally *Routine Cardiovascular Exam Cardiovascular: Present RRR *Routine Abdominal Exam Abdominal: Present soft and normoactive bowel sounds; Absent tenderness *Routine Extremities Exam Extremities: Absent cyanosis, clubbing or edema Comments: Right lower extremity pitting edema 2+. Chronic venous stasis changes Left AKA. *Routine Skin Exam Skin: Present warm; Absent rash *Routine Neurological Exam Neurological: Present alert and oriented X3 Assessment and Plan *Assessment and plan (1) HFrEF (heart failure with reduced ejection fraction): Status: Acute Category: Medical Code(s): I50.20 - Unspecified systolic (congestive) heart failure (2) Ischemic cardiomyopathy: Status: Acute Category: Medical Code(s): I25.5 - Ischemic cardiomyopathy (3) Peripheral arterial disease: Status: Acute Category: Medical Code(s): I73.9 - Peripheral vascular disease, unspecified (4) Hyperkalemia: Status: Acute Category: Medical Code(s): E87.5 - Hyperkalemia (5) Oliguria: Status: Acute Category: Medical Code(s): R34 - Anuria and oliguria (6) CKD stage 4 due to type 2 diabetes mellitus: Status: Acute Category: Medical Code(s): E11.22 - Type 2 diabetes mellitus with diabetic chronic kidney disease; N18.4 - Chronic kidney disease, stage 4 (severe) (7) Hyperlipidemia: Status: Acute Qualifiers: Hyperlipidemia type: mixed hyperlipidemia Qualified Code(s): E78.2 - Mixed hyperlipidemia Category: Medical Code(s): E78.5 - Hyperlipidemia, unspecified (8) Diabetes mellitus: Status: Acute Qualifiers: Diabetes mellitus type: type 2 Diabetes mellitus machine [employer] goods helper insulin use: with [facility] use Diabetes mellitus complication status: without complication Qualified Code(s): E11.9 - Type 2 diabetes mellitus without complications; Z79.4 - alf (current) use of insulin Category: Medical Code(s): E11.9 - Type 2 diabetes mellitus without complications (9) COPD (chronic obstructive pulmonary disease): Status: Acute Qualifiers: COPD type: chronic bronchitis Chronic bronchitis type: unspecified Qualified Code(s): J42 - Unspecified chronic bronchitis Category: Medical Code(s): J44.9 - Chronic obstructive pulmonary disease, unspecified (10) Hypertension: Status: Acute Qualifiers: Hypertension type: primary hypertension Qualified Code(s): I10 - Essential (primary) hypertension Category: Medical Code(s): I10 - Essential (primary) hypertension (11) Non-STEMI (non-ST elevated myocardial infarction): Status: Resolved Category: Medical Code(s): I21.4 - Non-ST elevation (NSTEMI) myocardial infarction (12) Chronic respiratory failure: Status: Acute Category: Medical Code(s): J96.10 - Chronic respiratory failure, unspecified whether with hypoxia or hypercapnia (13) PVD (peripheral vascular disease) with claudication: Status: Acute Category: Medical Code(s): I73.9 - Peripheral vascular disease, unspecified (14) Pleural effusion: Status: Acute Category: Medical Code(s): J90 - Pleural effusion, not elsewhere classified (15) Self-care deficit: Status: Acute Category: Medical Code(s): Z78.9 - Other specified health status (16) Aortic stenosis, moderate: Status: Acute Category: Medical Code(s): I35.0 - Nonrheumatic aortic (valve) stenosis (17) Anasarca: Status: Acute Category: Medical Code(s): R60.1 - Generalized edema (18) Cirrhosis: Status: Acute Category: Medical Code(s): K74.60 - Unspecified cirrhosis of liver Plan This is a 58-year-old male being admitted for acute on chronic CHF exacerbation, severe volume overload with anasarca. Condition complicated by his poorly controlled diabetes, peripheral vascular disease, CKD 4. Continues to require oxygen, though improved to 2 L. Being able to respond to diuresis and milrinone/nitroprusside drip. Negative this morning. Urine light yellow. Breathing over more comfortably. Continue current regimen. Cardiology assisting with care. Monitoring kidney function closely. Patient's condition serious, prognosis guarded. Monitoring kidney function closely as he may necessitate transfer to higher level of care if kidney function worsens and urine output decreases. Problems addressed as follows: #Acute on chronic hypoxic respiratory failure HFrEF exacerbation NSTEMI type II CKD stage IV Oliguria, severe exacerbation of kidney failure ? History of CAD status post 3 stents in March. ? Continue Bumex drip at 2 mg/h. Continue milrinone and nitroprusside. Having response. - Suspect component of ATN given prolonged heart failure, worsening edema, contrast load on admission, cirrhosis. Severe volume overload noted. Globally overloaded with swelling in leg, ascites in abdomen, effusions bilaterally. -Increase Lokelma to 3 times a day for hyperkalemia. - Anticipate bump in kidney function while we aggressively diuresed, anticipate function will improve with better perfusion and improvement in volume status as he is making good urine. ? BNP elevated at 63k on admission; repeat > 23802 still - ECHO earlier this month shows LVEF 20% with similar inferior akinesis as March this year, had been LVEF 30% earlier this. Patient does not want LifeVest at this time after extensively discussing risks and benefits. - Continue aspirin, Plavix 75 mg. ? Given patient's advanced CKD stage IV, unable to start NARESH/ARB/ARNI, MRA, or SGLT2i. - Continue to hold isosorbide and metoprolol in the setting of his cirrhosis and concern for impaired renal perfusion. Allow for permissive hypertension. Continue hydralazine 50 mg 3 times a day. - Diuresing well, net -2.9L so far. Kidneu function stable, Cr 4.6 #Iron deficiency anemia - Given IV venofer. - Start ferrous sulfate tomorrow with Miralax. #Physical deconditioning ? Previously recommended SNF placement, patient declined to go. Strong concern about his ability to care for himself at home. Therapy working with him at this time. Continues to need SNF therapy, patient states he will go home with a wheelchair. Has no desire to go to rehab. Type 2 diabetes Diabetic neuropathy -Hemoglobin A1c 7.8 1 month ago; glucose this morning 82 -Continue Lantus to 30 units nightly, continue sliding scale insulin and fingersticks ACHS -SSI for additional glycemic control COPD -Not in acute exacerbation, baseline oxygen 1 to 2 L. Increased oxygen requirement due to volume overload. Tolerating 2 L at this time -DuoNebs as needed, Continue Dulera -Maintain SpO2 greater than 90% -WBC 7.3, hemoglobin 10. HTN HLD -Continue statin, hydralazine as above CODE STATUS: Full code Surrogate decision maker: Saurabh [phone] Lovenox 30 mg subcu daily ICU/Critical care attestation This patient is critically ill with 35 minutes devoted solely to this patient managing life/organ supporting interventions that required physician assessment. This includes time spent making adjustments in ventilator settings, IV fluid administration, titration of pressors, adjustments of medications, discussion of patient with consultants and other care providers as well as updating patient and/or family (if patient by virtue of his/her condition is unable to participate in decision making). This does not include time spent performing separately billed procedures. Time is not concurrent with that of other providers.
[2024-03-30] VITALS (42 sets, daily range): BP systolic 134–162; BP diastolic 75–107; PULSE 79–107; RESP 7–21; TEMP 36.5–37.7; O2SAT 94–99; BMI 29.9; BMI 29.8
[2024-03-30] MEDS: BUMETANIDE 10 MG in 0.9 % SODIUM CHLORIDE 60 ML 20 MG IV ×5 (01:23→22:31)
[2024-03-30] MEDS: ACETAMINOPHEN 325MG TAB 650 MG PO (02:13)
[2024-03-30 05:49] LABS: Basophils % 0.3 % (0.1-2.0); Eosinophils # 0.1 K/mm3 (0.0-0.4); Eosinophils % 2.2 % (0.1-12.0); Hemoglobin 8.7 g/dL (14.1-18.0); Lymphocytes # 0.4 K/mm3 (0.7-4.5); Lymphocytes % 10.8 % (10-50); Mean Corpuscular HGB Conc 32.2 g/dL (31.8-35.4); Mean Corpuscular Hemoglobin 26.9 pg (27.0-31.2); Mean Corpuscular Volume 83.3 fl (80-94); Mean Platelet Volume 10.6 fl (7.4-10.4); Monocytes # 0.4 K/mm3 (0.1-1.0); Neutrophils # 2.8 K/mm3 (1.8-7.8); Neutrophils % 76.4 % (37.0-80.0); Platelet Count 155 K/mm3 (142-424); Red Blood Count 3.24 M/mm3 (4.60-6.20); Red Cell Distribution Width 17.7 % (11.5-17.5); White Blood Count 3.7 K/mm3 (4.8-10.8)
[2024-03-30 06:36] LABS: POC Glucose,Bedside 141 (70-110)
[2024-03-30 06:56] LABS: Alanine Aminotransferase 15 U/L (12-78); Albumin Level 3.2 g/dl (3.5-5.0); Albumin/Globulin Ratio 1.2 (1.1-1.8); Alkaline Phosphatase 243 U/L (38-126); Anion Gap 11.2 mEq/L (5-15); Aspartate Amino Transferase 44 U/L (17-59); Bilirubin,Total 1.4 mg/dl (0.2-1.3); Calcium 8.3 mg/dl (8.4-10.2); Carbon Dioxide 26 mmol/L (22.0-30.0); Chloride 99 mmol/L (98-107); Creatinine Clearance Estimated 27 mL/min (50-200); Estimated Glomerular Filt Rate 14 ml/min (>60); GFR (African American) 17 ML/MIN (>60); Globulin 2.6 g/dL (1.3-3.2); Glucose 117 mg/dl (74-100); Potassium 4.2 mmoL/L (3.5-5.1); Sodium 132 mmol/L (136-145); Total Protein,Serum 5.8 g/dl (6.3-8.2)
[2024-03-30 07:05] LABS: Vitamin B12 773 pg/mL (239-931)
[2024-03-30 07:20] LABS: Blood Urea Nitrogen 94 mg/dl (9-20)
[2024-03-30] MEDS: ASPIRIN EC 81MG TABLET 81 MG PO (08:11)
[2024-03-30] MEDS: FERROUS SULFATE 325MG TABLET 325 MG PO ×2 (08:12→20:21)
[2024-03-30] MEDS: HYDRALAZINE HCL 25MG TABLET 50 MG PO ×3 (08:12→20:22)
[2024-03-30] MEDS: GABAPENTIN 300MG CAPSULE 300 MG PO ×3 (08:12→20:21)
[2024-03-30 08:51] LABS: Folate 6.57 ng/mL
[2024-03-30] MEDS: MORPHINE 4MG/ML SYRINGE 4 MG IV (09:22)
--- NOTE | 2024-03-30 09:36 | P.PN_ITS ---
Subjective Subjective Date: 03/30/24 Time: 09:36 Principal diagnosis: HFrEF, CKD Interval history: 58-year-old white male in bed in no acute distress. Milrinone discontinued early this morning Greater than 3 L urine output noted overnight Creatinine down to 4.4 He continues on IV nitroprusside and IV Bumex Exam Data for Last 24 hours Vital signs and Labs for Last 24 Hours: Temp Pulse Resp BP Pulse Ox O2 Del Method O2 Flow Rate 98.5 F 95 H 12 146/84 H 98 Nasal Cannula 2 03/30/24 08:00 03/30/24 09:29 03/30/24 09:29 03/30/24 09:00 03/30/24 09:29 03/30/24 06:00 03/30/24 09:00 FiO2 28 03/28/24 18:59 Laboratory Results - last 24 hr 03/28/24 11:02: POC Glucose 138 H 03/28/24 16:23: POC Glucose 134 H 03/28/24 20:48: POC Glucose 116 H 03/29/24 05:03: POC Glucose 81 03/29/24 06:30: Iron 33 L, TIBC 336, Iron Saturation 9.20833 L, Ferritin 125 03/29/24 11:42: POC Glucose 103 03/29/24 16:14: POC Glucose 165 H 03/29/24 20:11: POC Glucose 162 H 03/30/24 05:18: WBC 3.7 L, RBC 3.24 L, Hgb 8.7 L, Hct 27.0 L, MCV 83.3, MCH 26.9 L, MCHC 32.2, RDW 17.7 H, Plt Count 155, MPV 10.6 H, Neut % (Auto) 76.4, Lymph % (Auto) 10.8, [place] % (Auto) 10.0 H, Eos % (Auto) 2.2, Baso % (Auto) 0.3, Neut # (Auto) 2.8, Lymph # (Auto) 0.4 L, [place] # (Auto) 0.4, Eos # (Auto) 0.1, Baso # (Auto) 0.0, Sodium 132 L, Potassium 4.2 D, Chloride 99, Carbon Dioxide 26, Anion Gap 11.2, BUN 94 H, Creatinine 4.40 H, Estimated Creat Clear 27, Estimated GFR 14 L*, Est GFR ( Amer) 17 L*, Glucose 117 H D, Calcium 8.3 L, Magnesium 2.0, Total Bilirubin 1.4 H, AST 44, ALT 15, Alkaline Phosphatase 243 H , Total Protein 5.8 L, Albumin 3.2 L D, Globulin 2.6, Albumin/Globulin Ratio 1.2, Vitamin B12 773, Folate 6.57 03/30/24 06:28: POC Glucose 141 H I & O for Last 24 hours: Intake & Output 03/27/24 03/28/24 03/29/24 03/30/24 11:59 11:59 11:59 11:59 Intake Total 1989.060 / 0175.583 7621.556 / 4958.348 5824.653 / 2512.653 1905.851 / 1905.851 Output Total 950 / 950 2075 / 2075 4700 / 4700 4150 / 4150 Balance 1040.060 / 1040.060 -736.444 / -736.444 -2187.347 / -2187.347 -2244.149 / -2244.149 Weight 228 lb 6.4 oz 233 lb 0.458 oz 226 lb 6.4 oz 220 lb 12.8 oz Microbiology Reports for the Last 24 Hours: Microbiology 03/24/24 17:35 Blood Blood Culture - Final NO GROWTH AFTER 5 DAYS 03/24/24 18:10 Blood Blood Culture - Final NO GROWTH AFTER 5 DAYS Constitutional Constitutional: no acute distress *Routine Respiratory Exam Respiratory: Present decreased breath sounds *Routine Cardiovascular Exam Cardiovascular: Present RRR and murmur; Absent gallop or rubs *Routine Extremities Exam Extremities: Present edema *Routine Neurological Exam Neurological: Present alert, oriented X3 and CN II-XII intact Progress Note: A&P Assessment and plan (1) HFrEF (heart failure with reduced ejection fraction): Status: Acute (2) Ischemic cardiomyopathy: Status: Acute (3) Peripheral arterial disease: Status: Acute (4) Hyperkalemia: Status: Acute (5) Oliguria: Status: Acute (6) CKD stage 4 due to type 2 diabetes mellitus: Status: Acute (7) Hyperlipidemia: Status: Acute (8) Diabetes mellitus: Status: Acute (9) COPD (chronic obstructive pulmonary disease): Status: Acute (10) Hypertension: Status: Acute (11) Non-STEMI (non-ST elevated myocardial infarction): Status: Resolved (12) Chronic respiratory failure: Status: Acute (13) PVD (peripheral vascular disease) with claudication: Status: Acute (14) Pleural effusion: Status: Acute (15) Self-care deficit: Status: Acute (16) Aortic stenosis, moderate: Status: Acute (17) Anasarca: Status: Acute (18) Cirrhosis: Status: Acute Assessment and Plan Assessment and Plan for All Diagnoses:: 1. HFrEF -continue IV bumex -continue IV nitroprusside -Milrinone stopped this a.m. 2. Oliguria -Possible ATN from contrast studies -Slowly improving 3. CKD, stage IV -Cr 4.4 with GFR 14 -possible component of ATN due to high contrast load from CT scans -bilateral DIEGO noted on Abd CTA 4. Aortic stenosis, moderate -Echo, 01/2024, 1.2 cm2 5. History of hypertension -Echo, 01/2024, EF 20% with grade 3 diastolic dysfunction 6. Peripheral arterial disease -s/p Left AKA -bilateral severe renal artery stenosis on abdominal CTA this admission -RLE with narrowing at popliteal but 3 vessel runoff into right foot 7. Anasarca on abdominal CTA -Cirrhosis of liver noted 8. Hyperlipidemia 9. CAD with elevated troponin this admission felt secondary to demand ischemia/strain from HFrEF -[facility], 04/08/2023, 3 ANGELA to LAD which jailed diagonal artery. Chronic RCA occlusion. Mod OM disease, med therapy. Continue diuresis with IV bumex continue nitroprusside but start oral isordil 20 mg TID and try to discontinue nitroprusside. Pt wt decreasing and urine output increasing Anticipate renal angiogram early next week if renal function continues to improve.
--- NOTE | 2024-03-30 10:15 | P.CONS_ITS ---
History of Present Illness History of present illness: Mr. Hurley is a 58-year-old male with reported history of heart failure with reduced ejection fraction, CKD, COPD, presented to the ER with worsening respiratory distress and pulmonary was called for further evaluation and management. Patient on this admission has been managed for heart failure exacerbation. Cardiology following. Patient admits significant improvement in his respiratory distress since admission. He admits baseline history of COPD. Denies any significant smoking history. Using oxygen supplementation 2 L for the last 12 months. [facility] Disclaimer: The information contained in this section may have been updated after the patient was seen, as this information can be updated by other users. 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) Lymphedema of right lower extremity Onychodystrophy Thoracic aneurysm without mention of rupture LV dysfunction Ischemic cardiomyopathy Acute blood loss anemia HFrEF (heart failure with reduced ejection fraction) Peripheral arterial disease Stenosis of carotid artery Atypical angina Hyperlipidemia CAD in council artery Asthma Diabetes mellitus, type 2 Congestive heart failure Above knee amputation of left lower extremity History of left heart catheterization (LHC) Diabetes mellitus Hypertension COPD (chronic obstructive pulmonary disease) Surgical History , 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 AND 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 SCIENTIST) Stented coronary artery Status post above-knee amputation of left lower extremity History of cholecystectomy Family History , RESEARCH AND DEVELOPMENT SCIENTIST) Family history of cancer Social History (Updated 03/25/24 @ 01:05 by Sirisha Jacques RN) Smoking Status: Former smoker tobacco type: cigarettes packs per day: 2 alcohol intake: never substance use type: denies use current occupational status: disabled Travel in the last 8 weeks: None housing: house current occupational exposures/hazards: No Have you lived/traveled outside [place] in past 30 days?: No Contact w/someone who lives/traveled outside [place] past 30 days?: No Exposure to someone with infectious disease in past 14 days?: No Do you have a fever (greater than 100.4 F or 38 C)?: No Have you tested positive for COVID-19: No Exposed to someone with COVID-19 in past 14 days?: No Do you have a sore throat?: No Do you have a cough?: No Do you have any weakness?: No Are you experiencing any nausea/vomitting?: No Do you have any diarrhea?: No Are you experiencing any unusual bleeding?: No Do you have any muscle aches/pain?: No Do you have any abdominal pain?: No Are you experiencing loss of taste or smell?: No Review of Systems Constitutional Constitutional: Denies anorexia, Reports body ache(s) and Reports fatigue Eyes Eyes: Denies eye discharge, Denies dry eyes, Denies irritation and Denies itchy eyes ENT Ears, Nose, Mouth, and Throat: Reports disequilibrium, Denies lip swelling and Denies throat swelling *Cardiovascular Cardiovascular: Reports dyspnea, Reports dyspnea on exertion and Reports leg edema *Respiratory Respiratory: Reports chest congestion, Reports cough, Reports dyspnea, Reports dyspnea on exertion, Denies excessive phlegm production, Denies hemoptysis, Denies pain on inspiration, Denies pain with cough and Denies wheezing *Gastrointestinal Gastrointestinal: Denies abdominal pain, Denies belching and Denies cramping Comments: Abdominal distention *Musculoskeletal Musculoskeletal: Reports abnormal gait (Left leg amputated above the knee) *Neurologic Neurologic: Reports abnormal gait (Left leg amputated above the knee) and Reports disequilibrium Psychiatric Psychiatric: Denies homicidal ideation and Denies suicidal ideation Endocrine Endocrine: Reports fatigue and Denies heat intolerance Hematologic/Lymphatic Hematologic/Lymphatic: Denies easy bleeding and Denies lymphadenopathy Allergic/Immunologic Allergic/Immunologic: Denies itchy eyes, Denies lip swelling, Denies throat swelling and Denies wheezing Pulmonology Exam Inpatient Vital signs and Labs for Last 24 Hours: Temp Pulse Resp BP Pulse Ox O2 Del Method O2 Flow Rate 98.5 F 95 H 12 146/84 H 98 Nasal Cannula 2 03/30/24 08:00 03/30/24 09:29 03/30/24 09:29 03/30/24 09:00 03/30/24 09:29 03/30/24 06:00 03/30/24 09:00 FiO2 28 03/28/24 18:59 Laboratory Results - last 24 hr 03/29/24 06:30: Iron 33 L, TIBC 336, Iron Saturation 9.84822 L, Ferritin 125 03/29/24 11:42: POC Glucose 103 03/29/24 16:14: POC Glucose 165 H 03/29/24 20:11: POC Glucose 162 H 03/30/24 05:18: WBC 3.7 L, RBC 3.24 L, Hgb 8.7 L, Hct 27.0 L, MCV 83.3, MCH 26.9 L, MCHC 32.2, RDW 17.7 H, Plt Count 155, MPV 10.6 H, Neut % (Auto) 76.4, Lymph % (Auto) 10.8, [place] % (Auto) 10.0 H, Eos % (Auto) 2.2, Baso % (Auto) 0.3, Neut # (Auto) 2.8, Lymph # (Auto) 0.4 L, [place] # (Auto) 0.4, Eos # (Auto) 0.1, Baso # (Auto) 0.0, Sodium 132 L, Potassium 4.2 D, Chloride 99, Carbon Dioxide 26, Anion Gap 11.2, BUN 94 H, Creatinine 4.40 H, Estimated Creat Clear 27, Estimated GFR 14 L*, Est GFR ( Amer) 17 L*, Glucose 117 H D, Calcium 8.3 L, Magnesium 2.0, Total Bilirubin 1.4 H, AST 44, ALT 15, Alkaline Phosphatase 243 H , Total Protein 5.8 L, Albumin 3.2 L D, Globulin 2.6, Albumin/Globulin Ratio 1.2, Vitamin B12 773, Folate 6.57 03/30/24 06:28: POC Glucose 141 H I & O for Labs for Last 24 Hours: Intake & Output 03/27/24 03/28/24 03/29/24 03/30/24 23:59 23:59 23:59 23:59 Intake Total 1580.282 / 2944.972 1240.245 / 0629.038 7624.626 / 2633.626 911.967 / 911.967 Output Total 1400 / 1400 3225 / 3625 5875 / 6375 1150 / 1150 Balance 180.282 / 180.282 -1348.755 / -1748.755 -3481.374 / -3741.374 -238.033 / -238.033 Weight 228 lb 6.4 oz 233 lb 0.458 oz 226 lb 6.4 oz 220 lb 12.8 oz Microbiology Reports for the Last 24 Hours: Microbiology 03/24/24 17:35 Blood Blood Culture - Final NO GROWTH AFTER 5 DAYS 12/27/24 18:10 Blood Blood Culture - Final NO GROWTH AFTER 5 DAYS Constitutional: Present mild distress Head: Present normocephalic and atraumatic ENT: Present normal exam, normal oropharynx and mucous membranes moist Neck: Present normal inspection and full ROM Respiratory: Present normal respiratory effort and able to speak in complete sentences; Absent prolonged expiratory phase, respiratory distress or wheezes Cardiac: Present S1/S2, Tachycardia and radial pulses present GI: Present soft and distention; Absent tenderness or guarding Skin: Present intact; Absent cyanosis or jaundice Neuro: Present alert, awake and oriented x 3 Extremities: Present normal inspection; Absent clubbing or cyanosis Psychiatric: Present normal affect and cooperative Meds Home Medications and Allergies Home Medications ?Medication ?Instructions ?Recorded ?Confirmed ?Type umeclidinium 62.5 mcg/actuation 1 inh inhalation DAILY 04/06/23 03/25/24 History blister powder for inhalation (Incruse Ellipta) mometasone-formoterol HFA 100 2 inh inhalation BID 02/23/24 03/25/24 History mcg-5 mcg/actuation aerosol inhaler (Dulera) metoprolol succinate 50 mg 50 mg PO DAILY 02/24/24 03/25/24 History tablet,extended release 24 hr semaglutide 0.25 mg or 0.5 mg (2 0.25 mg SQ WEEKLY 02/24/24 03/25/24 History mg/3 mL) subcutaneous pen injector (Ozempic) aspirin 81 mg tablet,delayed 81 mg PO DAILY 30 days #30 tabs 02/26/24 03/25/24 Rx release atorvastatin 80 mg tablet 80 mg PO HS 30 days #30 tabs 02/26/24 03/25/24 Rx hydralazine 25 mg tablet 50 mg (2 x 25 mg) PO TID 30 days 02/26/24 03/25/24 Rx #180 tabs isosorbide dinitrate 10 mg tablet 20 mg (2 x 10 mg) PO TID 30 days 02/26/24 03/25/24 Rx #180 tabs bumetanide 2 mg tablet 2 mg PO BID #60 tabs 03/02/24 03/25/24 Rx gabapentin 300 mg capsule 300 mg PO HS 30 days #30 caps 03/02/24 03/25/24 Rx insulin glargine 100 unit/mL (3 20 unit (0.2 mL) SQ HS 30 days #6 03/02/24 03/25/24 Rx mL) subcutaneous pen (Basaglar mL KwikPen U-100 Insulin) sodium bicarbonate 650 mg tablet 650 mg PO DAILY 30 days #30 tabs 03/02/24 03/25/24 Rx clopidogrel 75 mg tablet 75 mg PO DAILY 03/25/24 03/25/24 History New Prescriptions to Start Prescriptions: Allergies Allergy/AdvReac Type Severity Reaction Status Date / Time Penicillins Allergy Severe Anaphylaxis Verified 03/25/24 00:40 Results Laboratory Findings 03/30/24 05:18 03/30/24 05:18 PT/INR, D-dimer PT 12.5 seconds (10.1-12.5) 03/29/24 06:11 INR 1.13 (0.9-1.1) H 03/29/24 06:11 D-Dimer 2.39 ug/mL (0.0-0.5) H 03/24/24 16:00 Abnormal lab findings: Abnormal Labs 03/24/24 03/24/24 03/24/24 16:00 20:10 22:00 WBC RBC 4.24 L Hgb 11.2 L Hct 36.7 L MCH 26.4 L MCHC 30.5 L RDW 17.7 H MPV 11.0 H Neut % (Auto) Lymph % (Auto) [place] % (Auto) Eos % (Auto) Lymph # (Auto) Neutrophils % (Manual) Lymphocytes % (Manual) Monocytes % (Manual) INR D-Dimer 2.39 H Sodium Potassium Chloride Carbon Dioxide Anion Gap BUN 55 H Creatinine 2.80 H Estimated GFR 24 L Est GFR ( Amer) 29 L Glucose 198 H POC Glucose Lactate 2.3 H Calcium Phosphorus Iron Iron Saturation Total Bilirubin 2.5 H Alkaline Phosphatase 353 H Total Creatine Kinase 179 H Troponin I 0.06 H 0.06 H NT-Pro-B Natriuret Pep 68049 H Total Protein 6.1 L Albumin 3.3 L 03/25/24 03/25/24 03/25/24 00:35 08:13 11:06 WBC 4.0 L RBC 4.18 L Hgb 11.2 L Hct 35.5 L MCH 26.8 L MCHC 31.5 L RDW 17.8 H MPV 11.5 H Neut % (Auto) 86.8 H Lymph % (Auto) 9.5 L [place] % (Auto) Eos % (Auto) 0.0 L Lymph # (Auto) 0.4 L Neutrophils % (Manual) 92 H Lymphocytes % (Manual) 7 L Monocytes % (Manual) 1 L INR D-Dimer Sodium 128 L Potassium 5.8 H Chloride Carbon Dioxide 19 L Anion Gap 16.8 H BUN 58 H Creatinine 2.90 H Estimated GFR 23 L Est GFR ( Amer) 27 L Glucose 357 H D POC Glucose 419 H* Lactate 3.3 H 2.8 H Calcium Phosphorus Iron Iron Saturation Total Bilirubin 2.2 H Alkaline Phosphatase 323 H Total Creatine Kinase Troponin I NT-Pro-B Natriuret Pep Total Protein 6.0 L Albumin 3.3 L 03/25/24 03/25/24 03/25/24 15:39 15:50 18:25 WBC RBC Hgb Hct MCH MCHC RDW MPV Neut % (Auto) Lymph % (Auto) [place] % (Auto) Eos % (Auto) Lymph # (Auto) Neutrophils % (Manual) Lymphocytes % (Manual) Monocytes % (Manual) INR D-Dimer Sodium 129 L Potassium 5.4 H Chloride 97 L Carbon Dioxide 21 L Anion Gap 16.4 H BUN 62 H Creatinine 3.30 H Estimated GFR 19 L* Est GFR ( Amer) 24 L Glucose 351 H POC Glucose 385 H* Lactate 3.6 H 3.3 H Calcium 8.3 L Phosphorus Iron Iron Saturation Total Bilirubin Alkaline Phosphatase Total Creatine Kinase Troponin I NT-Pro-B Natriuret Pep Total Protein Albumin 03/25/24 03/26/24 03/26/24 20:05 06:53 11:00 WBC RBC 3.98 L Hgb 10.5 L Hct 33.1 L MCH 26.4 L MCHC 31.7 L RDW 17.9 H MPV Neut % (Auto) 81.1 H Lymph % (Auto) [place] % (Auto) Eos % (Auto) Lymph # (Auto) Neutrophils % (Manual) Lymphocytes % (Manual) Monocytes % (Manual) INR D-Dimer Sodium 130 L Potassium 5.3 H Chloride Carbon Dioxide Anion Gap BUN 73 H Creatinine 3.80 H Estimated GFR 17 L* Est GFR ( Amer) 20 L Glucose POC Glucose 320 H* 111 H Lactate Calcium 8.3 L Phosphorus Iron Iron Saturation Total Bilirubin 1.6 H Alkaline Phosphatase 265 H Total Creatine Kinase Troponin I NT-Pro-B Natriuret Pep Total Protein 5.7 L Albumin 3.2 L 03/26/24 03/26/24 03/27/24 17:55 20:33 05:14 WBC RBC Hgb Hct MCH MCHC RDW MPV Neut % (Auto) Lymph % (Auto) [place] % (Auto) Eos % (Auto) Lymph # (Auto) Neutrophils % (Manual) Lymphocytes % (Manual) Monocytes % (Manual) INR D-Dimer Sodium 129 L Potassium 5.4 H Chloride Carbon Dioxide Anion Gap BUN 78 H Creatinine 4.00 H Estimated GFR 16 L* Est GFR ( Amer) 19 L* Glucose 187 H D POC Glucose 212 H 115 H Lactate Calcium 8.2 L Phosphorus Iron Iron Saturation Total Bilirubin Alkaline Phosphatase Total Creatine Kinase Troponin I 0.09 H NT-Pro-B Natriuret Pep Total Protein Albumin 03/27/24 03/27/24 03/27/24 06:05 11:42 16:14 WBC RBC 3.72 L Hgb 10.1 L Hct 31.2 L MCH MCHC RDW 18.0 H MPV Neut % (Auto) Lymph % (Auto) 9.9 L [place] % (Auto) Eos % (Auto) Lymph # (Auto) Neutrophils % (Manual) Lymphocytes % (Manual) Monocytes % (Manual) INR D-Dimer Sodium 132 L Potassium 5.3 H 5.3 H Chloride Carbon Dioxide 21 L Anion Gap 18.3 H 15.3 H BUN 84 H 87 H Creatinine 4.20 H 4.30 H Estimated GFR 15 L* 14 L* Est GFR ( Amer) 18 L* 17 L* Glucose 106 H D POC Glucose 131 H Lactate Calcium 8.1 L 8.1 L Phosphorus Iron Iron Saturation Total Bilirubin 1.4 H Alkaline Phosphatase 283 H Total Creatine Kinase Troponin I NT-Pro-B Natriuret Pep > 94242 H Total Protein 5.9 L Albumin 3.2 L 03/27/24 03/27/24 03/28/24 16:34 20:14 05:23 WBC 4.6 L D RBC 3.50 L Hgb 9.4 L Hct 29.6 L MCH 26.9 L MCHC RDW 18.2 H MPV 10.5 H Neut % (Auto) Lymph % (Auto) [place] % (Auto) 10.3 H Eos % (Auto) Lymph # (Auto) 0.6 L Neutrophils % (Manual) Lymphocytes % (Manual) Monocytes % (Manual) INR D-Dimer Sodium 132 L Potassium 5.2 H Chloride Carbon Dioxide Anion Gap 15.2 H BUN 88 H Creatinine 4.50 H Estimated GFR 14 L* Est GFR ( Amer) 16 L* Glucose POC Glucose 123 H 126 H Lactate Calcium Phosphorus Iron Iron Saturation Total Bilirubin 1.5 H Alkaline Phosphatase 257 H Total Creatine Kinase Troponin I NT-Pro-B Natriuret Pep Total Protein 6.1 L Albumin 03/28/24 03/28/24 03/28/24 11:02 16:23 18:19 WBC RBC Hgb Hct MCH MCHC RDW MPV Neut % (Auto) Lymph % (Auto) [place] % (Auto) Eos % (Auto) Lymph # (Auto) Neutrophils % (Manual) Lymphocytes % (Manual) Monocytes % (Manual) INR D-Dimer Sodium 133 L Potassium 6.1 H* Chloride Carbon Dioxide Anion Gap 18.1 H BUN 87 H Creatinine 4.50 H Estimated GFR 14 L* Est GFR ( Amer) 16 L* Glucose 133 H D POC Glucose 138 H 134 H Lactate Calcium Phosphorus Iron Iron Saturation Total Bilirubin Alkaline Phosphatase Total Creatine Kinase Troponin I NT-Pro-B Natriuret Pep Total Protein Albumin 03/28/24 03/28/24 03/29/24 20:48 23:03 06:11 WBC 4.1 L RBC 3.48 L Hgb 9.2 L Hct 29.0 L MCH 26.4 L MCHC 31.7 L RDW 17.8 H MPV 10.8 H Neut % (Auto) Lymph % (Auto) [place] % (Auto) 9.7 H Eos % (Auto) Lymph # (Auto) 0.5 L Neutrophils % (Manual) Lymphocytes % (Manual) Monocytes % (Manual) INR 1.13 H D-Dimer Sodium 133 L Potassium 5.6 H 5.3 H Chloride Carbon Dioxide Anion Gap 15.3 H BUN 92 H Creatinine 4.60 H Estimated GFR 13 L* Est GFR ( Amer) 16 L* Glucose 64 L D POC Glucose 116 H Lactate Calcium Phosphorus 7.8 H Iron Iron Saturation Total Bilirubin 1.4 H Alkaline Phosphatase 253 H Total Creatine Kinase Troponin I NT-Pro-B Natriuret Pep Total Protein Albumin 03/29/24 03/29/24 03/29/24 06:30 16:14 20:11 WBC RBC Hgb Hct MCH MCHC RDW MPV Neut % (Auto) Lymph % (Auto) [place] % (Auto) Eos % (Auto) Lymph # (Auto) Neutrophils % (Manual) Lymphocytes % (Manual) Monocytes % (Manual) INR D-Dimer Sodium Potassium Chloride Carbon Dioxide Anion Gap BUN Creatinine Estimated GFR Est GFR ( Amer) Glucose POC Glucose 165 H 162 H Lactate Calcium Phosphorus Iron 33 L Iron Saturation 9.23766 L Total Bilirubin Alkaline Phosphatase Total Creatine Kinase Troponin I NT-Pro-B Natriuret Pep Total Protein Albumin 03/30/24 03/30/24 05:18 06:28 WBC 3.7 L RBC 3.24 L Hgb 8.7 L Hct 27.0 L MCH 26.9 L MCHC RDW 17.7 H MPV 10.6 H Neut % (Auto) Lymph % (Auto) [place] % (Auto) 10.0 H Eos % (Auto) Lymph # (Auto) 0.4 L Neutrophils % (Manual) Lymphocytes % (Manual) Monocytes % (Manual) INR D-Dimer Sodium 132 L Potassium Chloride Carbon Dioxide Anion Gap BUN 94 H Creatinine 4.40 H Estimated GFR 14 L* Est GFR ( Amer) 17 L* Glucose 117 H D POC Glucose 141 H Lactate Calcium 8.3 L Phosphorus Iron Iron Saturation Total Bilirubin 1.4 H Alkaline Phosphatase 243 H Total Creatine Kinase Troponin I NT-Pro-B Natriuret Pep Total Protein 5.8 L Albumin 3.2 L D Assessment and Plan *Assessment and plan (1) Pleural effusion: Status: Acute Category: Medical Code(s): J90 - Pleural effusion, not elsewhere classified (2) Chronic respiratory failure: Status: Acute Category: Medical Code(s): J96.10 - Chronic respiratory failure, unspecified whether with hypoxia or hypercapnia Plan Mr. Hurley is a 58-year-old male with reported history of heart failure with reduced ejection fraction, CKD, COPD, presented to the ER with worsening respiratory distress and pulmonary was called for further evaluation and management. Patient on this admission has been managed for heart failure exacerbation. Cardiology following. Patient admits significant improvement in his respiratory distress since admission. He admits baseline history of COPD. Denies any significant smoking history. Using oxygen supplementation 2 L for the last 12 months. CTA PE protocol upon admission, no evidence of pulmonary embolism, suboptimal study. Evidence of volume overload on bilateral pleural effusions right greater than left, small. Concerning for cirrhosis. CTA abdomen also concerning for significant vascular disease. On examination patient does not appear to be in any severe respiratory distress. On 4 L saturating 99%. No significant wheezing noted on auscultation. Currently receiving albuterol 4 times daily as needed Plan: Wean oxygen supplementation to maintain O2 saturation goal of 90 to 95%. Weaned to 2 L this morning. Continue to wean as tolerated. Albuterol 4 times daily as needed Follow with a chest x-ray PA lateral. Evaluation management of possible cirrhosis given nodular contour of the liver on CT imaging as per primary team.
--- NOTE | 2024-03-30 10:18 | XR_ITS ---
FINAL REPORT CLINICAL HISTORY: Hypoxia COMPARISON: 03/24/2024 FINDINGS: A portable view of the chest was obtained. A left AICD is unchanged. Cardiomegaly is stable. There has been interval improvement in bilateral opacities. There is no significant pleural effusion or pneumothorax. IMPRESSION: Interval improvement in bilateral opacities. Reviewed, Interpreted and Dictated by Cathryn Leone MD Transcribed by Sena Pina Authenticated and [facility]
[2024-03-30] MEDS: humaLOG 100 UNITS/ML 10ML VIAL (SSI) SUBCUT ×3 (11:44→20:27)
[2024-03-30] MEDS: ISOSORBIDE DINITRATE 20 MG TABLET PO ×2 (12:51→20:20)
--- NOTE | 2024-03-30 15:11 | P.PN_ITS ---
Subjective *Date: 03/30/24 *Time: 15:11 Interval history: Patient feeling a little bit better today. Continues to make great urine output. Milrinone discontinued today. Exam Data for Last 24 hours Vital signs and Labs for Last 24 Hours: Temp Pulse Resp BP Pulse Ox O2 Del Method O2 Flow Rate 99.9 F H 89 8 L 154/89 H 96 Nasal Cannula 2 03/30/24 12:00 03/30/24 15:00 03/30/24 15:00 03/30/24 15:00 03/30/24 15:00 03/30/24 15:00 03/30/24 15:00 FiO2 28 03/28/24 18:59 Laboratory Results - last 24 hr 03/29/24 16:14: POC Glucose 165 H 03/29/24 20:11: POC Glucose 162 H 03/30/24 05:18: WBC 3.7 L, RBC 3.24 L, Hgb 8.7 L, Hct 27.0 L, MCV 83.3, MCH 26.9 L, MCHC 32.2, RDW 17.7 H, Plt Count 155, MPV 10.6 H, Neut % (Auto) 76.4, Lymph % (Auto) 10.8, [place] % (Auto) 10.0 H, Eos % (Auto) 2.2, Baso % (Auto) 0.3, Neut # (Auto) 2.8, Lymph # (Auto) 0.4 L, [place] # (Auto) 0.4, Eos # (Auto) 0.1, Baso # (Auto) 0.0, Sodium 132 L, Potassium 4.2 D, Chloride 99, Carbon Dioxide 26, Anion Gap 11.2, BUN 94 H, Creatinine 4.40 H, Estimated Creat Clear 27, Estimated GFR 14 L*, Est GFR ( Amer) 17 L*, Glucose 117 H D, Calcium 8.3 L, Magnesium 2.0, Total Bilirubin 1.4 H, AST 44, ALT 15, Alkaline Phosphatase 243 H , Total Protein 5.8 L, Albumin 3.2 L D, Globulin 2.6, Albumin/Globulin Ratio 1.2, Vitamin B12 773, Folate 6.57 03/30/24 06:28: POC Glucose 141 H I & O for Last 24 hours: Intake & Output 03/27/24 03/28/24 03/29/24/02/25 23:59 23:59 23:59 23:59 Intake Total 1580.282 / 3241.925 0827.245 / 1059.792 1878.626 / 2633.626 1139.836 / 1139.836 Output Total 1400 / 1400 3225 / 3625 5875 / 6375 2950 / 2950 Balance 180.282 / 180.282 -1348.755 / -1748.755 -3481.374 / -3741.374 -1810.164 / -1810.164 Weight 103.6 kg 105.7 kg 102.693 kg 99.989 kg Microbiology Reports for the Last 24 Hours: Microbiology 03/24/24 17:35 Blood Blood Culture - Final NO GROWTH AFTER 5 DAYS 03/24/24 18:10 Blood Blood Culture - Final NO GROWTH AFTER 5 DAYS Constitutional Constitutional: no acute distress Comments: Generalized anasarca *Routine HEENT Exam Head: Present normocephalic Eye: Present EOMI and PERRL ENT: Present mucous membranes moist *Routine Neck Exam Neck: Present supple; Absent lymphadenopathy *Routine Respiratory Exam Respiratory: Present decreased breath sounds *Routine Cardiovascular Exam Cardiovascular: Present RRR and murmur; Absent gallop or rubs *Routine Abdominal Exam Abdominal: Present soft and normoactive bowel sounds; Absent tenderness *Routine Extremities Exam Extremities: Present edema Comments: Right lower extremity pitting edema 2+. Chronic venous stasis changes Left AKA. *Routine Skin Exam Skin: Present warm; Absent rash *Routine Neurological Exam Neurological: Present alert, oriented X3 and CN II-XII intact Assessment and Plan *Assessment and plan (1) HFrEF (heart failure with reduced ejection fraction): Status: Acute Category: Medical Code(s): I50.20 - Unspecified systolic (congestive) heart failure (2) Ischemic cardiomyopathy: Status: Acute Category: Medical Code(s): I25.5 - Ischemic cardiomyopathy (3) Peripheral arterial disease: Status: Acute Category: Medical Code(s): I73.9 - Peripheral vascular disease, unspecified (4) Hyperkalemia: Status: Acute Category: Medical Code(s): E87.5 - Hyperkalemia (5) Oliguria: Status: Acute Category: Medical Code(s): R34 - Anuria and oliguria (6) CKD stage 4 due to type 2 diabetes mellitus: Status: Acute Category: Medical Code(s): E11.22 - Type 2 diabetes mellitus with diabetic chronic kidney disease; N18.4 - Chronic kidney disease, stage 4 (severe) (7) Hyperlipidemia: Status: Acute Qualifiers: Hyperlipidemia type: mixed hyperlipidemia Qualified Code(s): E78.2 - Mixed hyperlipidemia Category: Medical Code(s): E78.5 - Hyperlipidemia, unspecified (8) Diabetes mellitus: Status: Acute Qualifiers: Diabetes mellitus type: type 2 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: with [facility] use Diabetes mellitus complication status: without complication Qualified Code(s): E11.9 - Type 2 diabetes mellitus without complications; Z79.4 - [facility] (current) use of insulin Category: Medical Code(s): E11.9 - Type 2 diabetes mellitus without complications (9) COPD (chronic obstructive pulmonary disease): Status: Acute Qualifiers: COPD type: chronic bronchitis Chronic bronchitis type: unspecified Qualified Code(s): J42 - Unspecified chronic bronchitis Category: Medical Code(s): J44.9 - Chronic obstructive pulmonary disease, unspecified (10) Hypertension: Status: Acute Qualifiers: Hypertension type: primary hypertension Qualified Code(s): I10 - Essential (primary) hypertension Category: Medical Code(s): I10 - Essential (primary) hypertension (11) Non-STEMI (non-ST elevated myocardial infarction): Status: Resolved Category: Medical Code(s): I21.4 - Non-ST elevation (NSTEMI) myocardial infarction (12) Chronic respiratory failure: Status: Acute Category: Medical Code(s): J96.10 - Chronic respiratory failure, unspecified whether with hypoxia or hypercapnia (13) PVD (peripheral vascular disease) with claudication: Status: Acute Category: Medical Code(s): I73.9 - Peripheral vascular disease, unspecified (14) Pleural effusion: Status: Acute Category: Medical Code(s): J90 - Pleural effusion, not elsewhere classified (15) Self-care deficit: Status: Acute Category: Medical Code(s): Z78.9 - Other specified health status (16) Aortic stenosis, moderate: Status: Acute Category: Medical Code(s): I35.0 - Nonrheumatic aortic (valve) stenosis (17) Anasarca: Status: Acute Category: Medical Code(s): R60.1 - Generalized edema (18) Cirrhosis: Status: Acute Category: Medical Code(s): K74.60 - Unspecified cirrhosis of liver Plan This is a 58-year-old male being admitted for acute on chronic CHF exacerbation, severe volume overload with anasarca. Condition complicated by his poorly controlled diabetes, peripheral vascular disease, CKD 4. Continues to require oxygen, though improved to 2 L. Being able to respond to diuresis and milrinone/nitroprusside drip. Negative this morning. Urine light yellow. Breathing over more comfortably. Continue current regimen. Cardiology assisting with care. Monitoring kidney function closely. Patient's condition serious, prognosis guarded. Monitoring kidney function closely as he may necessitate transfer to higher level of care if kidney function worsens and urine output decreases. Problems addressed as follows: #Acute on chronic hypoxic respiratory failure HFrEF exacerbation NSTEMI type II CKD stage IV Oliguria, severe exacerbation of kidney failure ? History of CAD status post 3 stents in March. ? Continue Bumex drip at 2 mg/h. Continue nitroprusside. Milrinone discontinued by cardiology today. Having response. - Suspect component of ATN given prolonged heart failure, worsening edema, contrast load on admission, cirrhosis. Severe volume overload noted. Globally overloaded with swelling in leg, ascites in abdomen, effusions bilaterally. - Increase Lokelma to 3 times a day for hyperkalemia, though patient is refusing due to taste. Potassium stable at this time. - Anticipate bump in kidney function while we aggressively diuresed, anticipate function will improve with better perfusion and improvement in volume status as he is making good urine. ? BNP elevated at 63k on admission; repeat > 96046 still - ECHO earlier this month shows LVEF 20% with similar inferior akinesis as March this year, had been LVEF 30% earlier this. Patient does not want LifeVest at this time after extensively discussing risks and benefits. - Continue aspirin, Plavix 75 mg. ? Given patient's advanced CKD stage IV, unable to start NARESH/ARB/ARNI, MRA, or SGLT2i. - Continue to hold isosorbide and metoprolol in the setting of his cirrhosis and concern for impaired renal perfusion. Allow for permissive hypertension. Continue hydralazine 50 mg 3 times a day. - Diuresing well, net -5.2L so far. Kidney function improving, creatinine 4.4, potassium 4.2. #Suspected cirrhosis ? Nodular contour of liver on CT abdomen suggesting cirrhosis. ? No signs of grossly decompensated cirrhosis, volume overload is low suggestive of HFrEF exacerbation though possible cirrhosis is likely contributing. ? PT/INR, platelets, are relatively unremarkable at this time. Albumin 3.2. ? Will need further evaluation by GI outpatient. #Iron deficiency anemia - Given IV venofer. -Continue ferrous sulfate tomorrow with Miralax. #Physical deconditioning ? Previously recommended SNF placement, patient declined to go. Strong concern about his ability to care for himself at home. Therapy working with him at this time. Continues to need SNF therapy, patient states he will go home with a wheelchair. Has no desire to go to rehab. Type 2 diabetes Diabetic neuropathy -Hemoglobin A1c 7.8 1 month ago; glucose this morning 82 -Continue Lantus to 30 units nightly, continue sliding scale insulin and fingersticks ACHS -SSI for additional glycemic control COPD -Not in acute exacerbation, baseline oxygen 1 to 2 L. Increased oxygen requirement due to volume overload. Tolerating 2 L at this time -DuoNebs as needed, Continue Dulera -Maintain SpO2 greater than 90% -WBC 7.3, hemoglobin 10. HTN HLD -Continue statin, hydralazine as above CODE STATUS: Full code Surrogate decision maker: Saurabh [phone] Lovenox 30 mg subcu daily ICU/Critical care attestation This patient is critically ill with 35 minutes devoted solely to this patient managing life/organ supporting interventions that required physician assessment. This includes time spent making adjustments in ventilator settings, IV fluid administration, titration of pressors, adjustments of medications, discussion of patient with consultants and other care providers as well as updating patient and/or family (if patient by virtue of his/her condition is unable to participate in decision making). This does not include time spent performing separately billed procedures. Time is not concurrent with that of other providers.
--- NOTE | 2024-03-30 15:36 | PC.NURSE ---
VS stable and patient remained on home o2 2LNC. Pitting edema 4+ noted on right foot, 3+ on right leg. Diuresing well, 1800 ml out at this time. Nipride drip on standby as new bp medications added. Patent alert and oriented times 4. Patient refusing q2 turns despite education about developing bed sores and risks of infection. [address] fluid restriction in place.
[2024-03-30] MEDS: ATORVASTATIN 40MG TABLET 80 MG PO (20:20)
[2024-03-30] MEDS: TAMSULOSIN 0.4MG CAPSULE 0.4 MG PO (20:21)
[2024-03-30] MEDS: PANTOPRAZOLE 40MG TABLET 40 MG PO (20:23)
[2024-03-30] MEDS: INSULIN GLARGINE 100 UNITS/ML 3ML FLEXPEN 30 UNIT SUBCUT (20:26)
[2024-03-31] VITALS (18 sets, daily range): BP systolic 133–157; BP diastolic 75–122; PULSE 84–101; RESP 10–22; TEMP 36.6–37.1; O2SAT 97–100; BMI 29.1
[2024-03-31] MEDS: BUMETANIDE 10 MG in 0.9 % SODIUM CHLORIDE 60 ML 20 MG IV ×5 (03:58→23:40)
[2024-03-31 05:44] LABS: Basophils % 0.2 % (0.1-2.0); Eosinophils # 0.1 K/mm3 (0.0-0.4); Eosinophils % 2.3 % (0.1-12.0); Hemoglobin 9.7 g/dL (14.1-18.0); Lymphocytes # 0.4 K/mm3 (0.7-4.5); Lymphocytes % 10.2 % (10-50); Mean Corpuscular HGB Conc 31.3 g/dL (31.8-35.4); Mean Corpuscular Hemoglobin 25.8 pg (27.0-31.2); Mean Corpuscular Volume 82.4 fl (80-94); Mean Platelet Volume 10.7 fl (7.4-10.4); Monocytes # 0.5 K/mm3 (0.1-1.0); Monocytes % 10.4 % (1.7-9.3); Neutrophils # 3.3 K/mm3 (1.8-7.8); Neutrophils % 76.2 % (37.0-80.0); Platelet Count 183 K/mm3 (142-424); Red Blood Count 3.76 M/mm3 (4.60-6.20); Red Cell Distribution Width 17.3 % (11.5-17.5); White Blood Count 4.3 K/mm3 (4.8-10.8)
[2024-03-31 05:54] LABS: Albumin Level 3.6 g/dl (3.5-5.0); Chloride 97 mmol/L (98-107); Sodium 136 mmol/L (136-145)
[2024-03-31 05:57] LABS: Alanine Aminotransferase 18 U/L (12-78); Albumin/Globulin Ratio 1.2 (1.1-1.8); Alkaline Phosphatase 253 U/L (38-126); Aspartate Amino Transferase 49 U/L (17-59); Bilirubin,Total 1.4 mg/dl (0.2-1.3); Carbon Dioxide 28 mmol/L (22.0-30.0); Creatinine Clearance Estimated 28 mL/min (50-200); Estimated Glomerular Filt Rate 15 ml/min (>60); GFR (African American) 18 ML/MIN (>60); Total Protein,Serum 6.6 g/dl (6.3-8.2)
[2024-03-31 05:58] LABS: Calcium 8.4 mg/dl (8.4-10.2); Glucose 67 mg/dl (74-100)
[2024-03-31 06:01] LABS: Blood Urea Nitrogen 84 mg/dl (9-20)
--- NOTE | 2024-03-31 06:14 | PC.NURSE ---
Critical lab received from Kourtney in lab. Patient BUN 84, and Creat 4.1. Provider aware.
[2024-03-31 06:47] LABS: Magnesium 1.8 mg/dl (1.6-2.3)
[2024-03-31] MEDS: HYDRALAZINE HCL 25MG TABLET 50 MG PO ×3 (08:57→20:46)
[2024-03-31] MEDS: ISOSORBIDE DINITRATE 20 MG TABLET PO (08:57)
[2024-03-31] MEDS: ASPIRIN EC 81MG TABLET 81 MG PO (09:00)
[2024-03-31] MEDS: FERROUS SULFATE 325MG TABLET 325 MG PO ×2 (09:00→20:45)
[2024-03-31] MEDS: GABAPENTIN 300MG CAPSULE 300 MG PO ×3 (09:00→20:45)
--- NOTE | 2024-03-31 09:21 | CA_ITS ---
FINAL REPORT TECHNIQUE: Multiple transverse and longitudinal images were performed of the right femoral-popliteal deep venous system with augmentation and compression maneuvers. CLINICAL HISTORY: Left AKA, PVD, DM, HLD, COPD, HTN, recent pacemaker insertion, ex smoker. Edema and redness RLE x 2-3 weeks. Denies trauma. Pitting edema noted in right thigh and calf. RLE tender to touch. FINDINGS: Right lower extremity duplex ultrasound demonstrates normal flow in the deep venous system. There is no abnormal echogenicity to suggest thrombus. There is normal compression and augmentation. IMPRESSION: No evidence of right DVT. Reviewed, Interpreted and Dictated by Cathryn Leone MD Transcribed by Amanda Mcwilliams Authenticated and [facility]
--- NOTE | 2024-03-31 09:51 | P.PN_ITS ---
Subjective *Date: 03/31/24 *Time: 10:52 Interval history: Patient denies any new respiratory complaints. With no significant improvement in his respiratory status. Pulmonology Exam Inpatient Vital signs and Labs for Last 24 Hours: Temp Pulse Resp BP Pulse Ox O2 Del Method O2 Flow Rate 98.3 F 96 H 15 152/87 H 99 Nasal Cannula 2 03/31/24 08:00 03/31/24 08:00 03/31/24 04:00 03/31/24 08:00 03/31/24 08:00 03/31/24 07:00 03/31/24 07:00 FiO2 28 03/28/24 18:59 Laboratory Results - last 24 hr 03/31/24 05:22: WBC 4.3 L, RBC 3.76 L, Hgb 9.7 L, Hct 31.0 L, MCV 82.4, MCH 25.8 L, MCHC 31.3 L, RDW 17.3, Plt Count 183, MPV 10.7 H, Neut % (Auto) 76.2, Lymph % (Auto) 10.2, [place] % (Auto) 10.4 H, Eos % (Auto) 2.3, Baso % (Auto) 0.2, Neut # (Auto) 3.3, Lymph # (Auto) 0.4 L, [place] # (Auto) 0.5, Eos # (Auto) 0.1, Baso # (Auto) 0.0, Sodium 136, Potassium 4.0, Chloride 97 L, Carbon Dioxide 28, Anion Gap 15.0, BUN 84 H, Creatinine 4.10 H, Estimated Creat Clear 28, Estimated GFR 15 L*, Est GFR ( Amer) 18 L*, Glucose 67 L, Calcium 8.4, Magnesium 1.8, Total Bilirubin 1.4 H, AST 49, ALT 18, Alkaline Phosphatase 253 H, Total Protein 6.6, Albumin 3.6 D, Globulin 3.0, Albumin/Globulin Ratio 1.2 Temp Pulse Resp BP Pulse Ox O2 Del Method O2 Flow Rate 98.5 F 95 H 12 146/84 H 98 Nasal Cannula 2 03/30/24 08:00 03/30/24 09:29 03/30/24 09:29 03/30/24 09:00 03/30/24 09:29 03/30/24 06:00 03/30/24 09:00 FiO2 28 12/31/24 18:59 Laboratory Results - last 24 hr 03/29/24 06:30: Iron 33 L, TIBC 336, Iron Saturation 9.65347 L, Ferritin 125 03/29/24 11:42: POC Glucose 103 03/29/24 16:14: POC Glucose 165 H 03/29/24 20:11: POC Glucose 162 H 03/30/24 05:18: WBC 3.7 L, RBC 3.24 L, Hgb 8.7 L, Hct 27.0 L, MCV 83.3, MCH 26.9 L, MCHC 32.2, RDW 17.7 H, Plt Count 155, MPV 10.6 H, Neut % (Auto) 76.4, Lymph % (Auto) 10.8, [place] % (Auto) 10.0 H, Eos % (Auto) 2.2, Baso % (Auto) 0.3, Neut # (Auto) 2.8, Lymph # (Auto) 0.4 L, [place] # (Auto) 0.4, Eos # (Auto) 0.1, Baso # (Auto) 0.0, Sodium 132 L, Potassium 4.2 D, Chloride 99, Carbon Dioxide 26, Anion Gap 11.2, BUN 94 H, Creatinine 4.40 H, Estimated Creat Clear 27, Estimated GFR 14 L*, Est GFR ( Amer) 17 L*, Glucose 117 H D, Calcium 8.3 L, Magnesium 2.0, Total Bilirubin 1.4 H, AST 44, ALT 15, Alkaline Phosphatase 243 H , Total Protein 5.8 L, Albumin 3.2 L D, Globulin 2.6, Albumin/Globulin Ratio 1.2, Vitamin B12 773, Folate 6.57 03/30/24 06:28: POC Glucose 141 H I & O for Labs for Last 24 Hours: Intake & Output 03/28/24 03/29/24 03/30/24 03/31/24 23:59 23:59 23:59 23:59 Intake Total 1876.245 / 3550.603 2696.626 / 2633.626 1723.169 / 2078.169 1598 / 1598 Output Total 3225 / 3625 5875 / 6375 4850 / 4850 750 / 750 Balance -1348.755 / -1748.755 -3481.374 / -3741.374 -3126.831 / -2771.831 848 / 848 Weight 233 lb 0.458 oz 226 lb 6.4 oz 220 lb 7 oz 215 lb 1.6 oz Intake & Output 03/27/24 03/28/24 03/29/24 03/30/24 23:59 23:59 23:59 23:59 Intake Total 1580.282 / 1865.581 1534.245 / 0927.241 5192.626 / 2633.626 911.967 / 911.967 Output Total 1400 / 1400 3225 / 3625 5875 / 6375 1150 / 1150 Balance 180.282 / 180.282 -1348.755 / -1748.755 -3481.374 / -3741.374 -238.033 / -238.033 Weight 228 lb 6.4 oz 233 lb 0.458 oz 226 lb 6.4 oz 220 lb 12.8 oz Microbiology Reports for the Last 24 Hours: Microbiology 03/24/24 17:35 Blood Blood Culture - Final NO GROWTH AFTER 5 DAYS 03/24/24 18:10 Blood Blood Culture - Final NO GROWTH AFTER 5 DAYS Constitutional: Present mild distress Head: Present normocephalic and atraumatic ENT: Present normal exam, normal oropharynx and mucous membranes moist Neck: Present normal inspection and full ROM Respiratory: Present normal respiratory effort and able to speak in complete sentences; Absent prolonged expiratory phase, respiratory distress, rhonchi or wheezes Cardiac: Present S1/S2, Tachycardia and radial pulses present GI: Present soft and distention; Absent tenderness or guarding Skin: Present intact; Absent cyanosis or jaundice Neuro: Present alert, awake and oriented x 3 Extremities: Present normal inspection; Absent clubbing or cyanosis Psychiatric: Present normal affect and cooperative Assessment and Plan *Assessment and plan (1) Pleural effusion: Status: Acute Category: Medical Code(s): J90 - Pleural effusion, not elsewhere classified (2) Chronic respiratory failure: Status: Acute Category: Medical Code(s): J96.10 - Chronic respiratory failure, unspecified whether with hypoxia or hypercapnia Plan Mr. Hurley is a 58-year-old male with reported history of heart failure with reduced ejection fraction, CKD, COPD, presented to the ER with worsening respiratory distress and pulmonary was called for further evaluation and management. Patient on this admission has been managed for heart failure exacerbation. Cardiology following. Patient admits significant improvement in his respiratory distress since a dmission. He admits baseline history of COPD. Denies any significant smoking history. Using oxygen supplementation 2 L for the last 12 months. CTA PE protocol upon admission, no evidence of pulmonary embolism, suboptimal study. Evidence of volume overload on bilateral pleural effusions right greater than left, small. Concerning for cirrhosis. CTA abdomen also concerning for significant vascular disease. On initial examination patient does not appear to be in any severe respiratory distress. On 4 L saturating 99%. No significant wheezing noted on auscultation. Currently receiving albuterol 4 times daily as needed Interval update: No acute respiratory vents overnight. On 2 L saturating 97% this morning. Continue to wean as tolerated. Chest x-ray from yesterday no consolidative changes. Improving effusions. Plan: Oxygen supplementation as needed to maintain O2 saturation above 90% and above Albuterol 4 times daily as needed Evaluation management of possible cirrhosis given nodular contour of the liver on CT imaging as per primary team. Thank you for involving pulmonary in this patient care. Will follow the patient in pulmonary clinic in 4 to 6 weeks with a PFT walk testing prior to clinic visit
[2024-03-31 10:03] LABS: POC Glucose,Bedside 254 (70-110)
[2024-03-31 10:03] LABS: POC Glucose,Bedside 200 (70-110)
[2024-03-31 10:03] LABS: POC Glucose,Bedside 360 (70-110)
[2024-03-31 10:03] LABS: POC Glucose,Bedside 89 (70-110)
--- NOTE | 2024-03-31 10:45 | P.PN_ITS ---
Subjective Subjective Date: 03/31/24 Time: 10:45 Principal diagnosis: HFrEF, CKD Interval history: 58-year-old white male in bed in no acute distress. Continues to diurese on IV Bumex. Swelling continues to improve but is still present. Exam Data for Last 24 hours Vital signs and Labs for Last 24 Hours: Temp Pulse Resp BP Pulse Ox O2 Del Method O2 Flow Rate 98.3 F 99 H 18 142/82 H 98 Nasal Cannula 2 03/31/24 08:00 03/31/24 10:14 03/31/24 10:14 03/31/24 10:14 03/31/24 10:14 03/31/24 10:14 03/31/24 10:14 FiO2 28 03/28/24 18:59 Laboratory Results - last 24 hr 03/30/24 11:41: POC Glucose 254 H 03/30/24 16:26: POC Glucose 200 H 03/30/24 20:25: POC Glucose 360 H* 03/31/24 05:22: WBC 4.3 L, RBC 3.76 L, Hgb 9.7 L, Hct 31.0 L, MCV 82.4, MCH 25.8 L, MCHC 31.3 L, RDW 17.3, Plt Count 183, MPV 10.7 H, Neut % (Auto) 76.2, Lymph % (Auto) 10.2, [place] % (Auto) 10.4 H, Eos % (Auto) 2.3, Baso % (Auto) 0.2, Neut # (Auto) 3.3, Lymph # (Auto) 0.4 L, [place] # (Auto) 0.5, Eos # (Auto) 0.1, Baso # (Auto) 0.0, Sodium 136, Potassium 4.0, Chloride 97 L, Carbon Dioxide 28, Anion Gap 15.0, BUN 84 H, Creatinine 4.10 H, Estimated Creat Clear 28, Estimated GFR 15 L*, Est GFR ( Amer) 18 L*, Glucose 67 L, Calcium 8.4, Magnesium 1.8, Total Bilirubin 1.4 H, AST 49, ALT 18, Alkaline Phosphatase 253 H, Total Protein 6.6, Albumin 3.6 D, Globulin 3.0, Albumin/Globulin Ratio 1.2 03/31/24 06:07: POC Glucose 89 I & O for Last 24 hours: Intake & Output 03/28/24 03/29/24 03/30/24 03/31/24 11:59 11:59 11:59 11:59 Intake Total 1338.556 / 5976.572 2909.653 / 2512.653 1905.851 / 3991.649 5952.202 / 2435.202 Output Total 2074 / 2074 4700 / 4700 4850 / 4850 4200 / 4200 Balance -736.444 / -736.444 -2187.347 / -2187.347 -2944.149 / -2944.149 - 1764.798 / -1764.798 Weight 233 lb 0.458 oz 226 lb 6.4 oz 220 lb 12.8 oz 215 lb 1.6 oz Constitutional Constitutional: no acute distress *Routine Respiratory Exam Respiratory: Present decreased breath sounds; Absent rhonchi or wheezes *Routine Cardiovascular Exam Cardiovascular: Present RRR and murmur; Absent gallop or rubs *Routine Extremities Exam Extremities: Present edema Progress Note: A&P Assessment and plan (1) Pleural effusion: Status: Acute (2) Chronic respiratory failure: Status: Acute (3) HFrEF (heart failure with reduced ejection fraction): Status: Acute (4) Ischemic cardiomyopathy: Status: Acute (5) Peripheral arterial disease: Status: Acute (6) Hyperkalemia: Status: Acute (7) Oliguria: Status: Acute (8) CKD stage 4 due to type 2 diabetes mellitus: Status: Acute (9) Hyperlipidemia: Status: Acute (10) Diabetes mellitus: Status: Acute (11) COPD (chronic obstructive pulmonary disease): Status: Acute (12) Hypertension: Status: Acute (13) Non-STEMI (non-ST elevated myocardial infarction): Status: Resolved (14) PVD (peripheral vascular disease) with claudication: Status: Acute (15) Self-care deficit: Status: Acute (16) Aortic stenosis, moderate: Status: Acute (17) Anasarca: Status: Acute (18) Cirrhosis: Status: Acute Assessment and Plan Assessment and Plan for All Diagnoses:: 1. HFrEF -continue IV bumex -Off Nipride and back on oral isosorbide -Milrinone stopped this a.m. 2. Oliguria -Possible ATN from contrast studies -Slowly improving 3. CKD, stage IV -Cr 4.1 with GFR 15 -possible component of ATN due to high contrast load from CT scans -bilateral DIEGO noted on Abd CTA 4. Aortic stenosis, moderate -Echo, 01/2024, 1.2 cm2 5. History of hypertension -Echo, 01/2024, EF 20% with grade 3 diastolic dysfunction 6. Peripheral arterial disease -s/p Left AKA -bilateral severe renal artery stenosis on abdominal CTA this admission -RLE with narrowing at popliteal but 3 vessel runoff into right foot 7. Anasarca on abdominal CTA -Cirrhosis of liver noted 8. Hyperlipidemia -on statin 9. CAD with elevated troponin this admission felt secondary to demand ischemia/strain from HFrEF -[facility], 04/08/2023, 3 ANGELA to LAD which jailed diagonal artery. Chronic RCA occlusion. Mod OM disease, med therapy. Continue diuresis with IV bumex Increase isordil to 30 mg TID due to BP Hold beta stacy for now Pt wt decreasing and urine output increasing Anticipate renal angiogram early next week if renal function continues to improve.
[2024-03-31 11:14] LABS: POC Glucose,Bedside 137 (70-110)
[2024-03-31] MEDS: ISOSORBIDE DINITRATE 10 MG TABLET 30 MG PO ×2 (13:27→21:02)
--- NOTE | 2024-03-31 16:44 | PC.NURSE ---
pt left unit for ms at 1638
[2024-03-31] MEDS: humaLOG 100 UNITS/ML 10ML VIAL (SSI) SUBCUT (17:25)
[2024-03-31 18:54] LABS: POC Glucose,Bedside 160 (70-110)
[2024-03-31 20:27] LABS: POC Glucose,Bedside 141 (70-110)
[2024-03-31] MEDS: ATORVASTATIN 40MG TABLET 80 MG PO (20:45)
[2024-03-31] MEDS: TAMSULOSIN 0.4MG CAPSULE 0.4 MG PO (20:46)
[2024-03-31] MEDS: PANTOPRAZOLE 40MG TABLET 40 MG PO (20:46)
[2024-03-31] MEDS: INSULIN GLARGINE 100 UNITS/ML 3ML FLEXPEN 20 UNIT SUBCUT (20:46)
--- NOTE | 2024-03-31 22:00 | P.PN_ITS ---
Subjective *Date: 04/02/24 *Time: 21:40 Interval history: Feeling better, diuresing well. Exam Data for Last 24 hours Vital signs and Labs for Last 24 Hours: Temp Pulse Resp BP Pulse Ox O2 Del Method O2 Flow Rate 98.1 F 88 16 152/95 H 100 Nasal Cannula 2 03/31/24 20:00 03/31/24 20:00 03/31/24 20:00 03/31/24 20:00 03/31/24 20:00 03/31/24 20:00 03/31/24 20:00 FiO2 28 03/28/24 18:59 Laboratory Results - last 24 hr 03/30/24 11:41: POC Glucose 254 H 03/30/24 16:26: POC Glucose 200 H 03/30/24 20:25: POC Glucose 360 H* 03/31/24 05:22: WBC 4.3 L, RBC 3.76 L, Hgb 9.7 L, Hct 31.0 L, MCV 82.4, MCH 25.8 L, MCHC 31.3 L, RDW 17.3, Plt Count 183, MPV 10.7 H, Neut % (Auto) 76.2, Lymph % (Auto) 10.2, [place] % (Auto) 10.4 H, Eos % (Auto) 2.3, Baso % (Auto) 0.2, Neut # (Auto) 3.3, Lymph # (Auto) 0.4 L, [place] # (Auto) 0.5, Eos # (Auto) 0.1, Baso # (Auto) 0.0, Sodium 136, Potassium 4.0, Chloride 97 L, Carbon Dioxide 28, Anion Gap 15.0, BUN 84 H, Creatinine 4.10 H, Estimated Creat Clear 28, Estimated GFR 15 L*, Est GFR ( Amer) 18 L*, Glucose 67 L, Calcium 8.4, Magnesium 1.8, Total Bilirubin 1.4 H, AST 49, ALT 18, Alkaline Phosphatase 253 H, Total Protein 6.6, Albumin 3.6 D, Globulin 3.0, Albumin/Globulin Ratio 1.2 03/31/24 06:07: POC Glucose 89 03/31/24 11:04: POC Glucose 137 H 03/31/24 16:52: POC Glucose 160 H 03/31/24 20:19: POC Glucose 141 H I & O for Last 24 hours: Intake & Output 03/28/24 03/29/24 03/30/24 03/31/24 23:59 23:59 23:59 23:59 Intake Total 1876.245 / 8627.759 3358.626 / 2633.626 1723.169 / 2078.169 2545.333 / 2545.333 Output Total 3225 / 3625 5875 / 6375 4850 / 4850 2950 / 2950 Balance -1348.755 / -1748.755 -3481.374 / -3741.374 -3126.831 / -2771.831 - 404.667 / -404.667 Weight 105.7 kg 102.693 kg 99.989 kg 97.568 kg Constitutional Constitutional: no acute distress Comments: Generalized anasarca *Routine HEENT Exam Head: Present normocephalic Eye: Present EOMI and PERRL ENT: Present mucous membranes moist *Routine Neck Exam Neck: Present supple; Absent lymphadenopathy *Routine Respiratory Exam Respiratory: Present decreased breath sounds *Routine Cardiovascular Exam Cardiovascular: Present RRR and murmur; Absent gallop or rubs *Routine Abdominal Exam Abdominal: Present soft and normoactive bowel sounds; Absent tenderness *Routine Extremities Exam Extremities: Present edema Comments: Right lower extremity pitting edema 2+. Chronic venous stasis changes Left AKA. *Routine Skin Exam Skin: Present warm; Absent rash *Routine Neurological Exam Neurological: Present alert, oriented X3 and CN II-XII intact Assessment and Plan *Assessment and plan (1) HFrEF (heart failure with reduced ejection fraction): Status: Acute Category: Medical Code(s): I50.20 - Unspecified systolic (congestive) heart failure (2) Ischemic cardiomyopathy: Status: Acute Category: Medical Code(s): I25.5 - Ischemic cardiomyopathy (3) Peripheral arterial disease: Status: Acute Category: Medical Code(s): I73.9 - Peripheral vascular disease, unspecified (4) Hyperkalemia: Status: Acute Category: Medical Code(s): E87.5 - Hyperkalemia (5) Oliguria: Status: Acute Category: Medical Code(s): R34 - Anuria and oliguria (6) CKD stage 4 due to type 2 diabetes mellitus: Status: Acute Category: Medical Code(s): E11.22 - Type 2 diabetes mellitus with diabetic chronic kidney disease; N18.4 - Chronic kidney disease, stage 4 (severe) (7) Hyperlipidemia: Status: Acute Qualifiers: Hyperlipidemia type: mixed hyperlipidemia Qualified Code(s): E78.2 - Mixed hyperlipidemia Category: Medical Code(s): E78.5 - Hyperlipidemia, unspecified (8) Diabetes mellitus: Status: Acute Qualifiers: Diabetes mellitus complication status: without complication 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: with intermodal truck driver use Diabetes mellitus type: type 2 Qualified Code(s): E11.9 - Type 2 diabetes mellitus without complications; Z79.4 - termite treater helper (current) use of insulin Category: Medical Code(s): E11.9 - Type 2 diabetes mellitus without complications (9) COPD (chronic obstructive pulmonary disease): Status: Acute Qualifiers: COPD type: chronic bronchitis Chronic bronchitis type: unspecified Qualified Code(s): J42 - Unspecified chronic bronchitis Category: Medical Code(s): J44.9 - Chronic obstructive pulmonary disease, unspecified (10) Hypertension: Status: Acute Qualifiers: Hypertension type: primary hypertension Qualified Code(s): I10 - Essential (primary) hypertension Category: Medical Code(s): I10 - Essential (primary) hypertension (11) Non-STEMI (non-ST elevated myocardial infarction): Status: Resolved Category: Medical Code(s): I21.4 - Non-ST elevation (NSTEMI) myocardial infarction (12) Chronic respiratory failure: Status: Acute Category: Medical Code(s): J96.10 - Chronic respiratory failure, unspecified whether with hypoxia or hypercapnia (13) PVD (peripheral vascular disease) with claudication: Status: Acute Category: Medical Code(s): I73.9 - Peripheral vascular disease, unspecified (14) Pleural effusion: Status: Acute Category: Medical Code(s): J90 - Pleural effusion, not elsewhere classified (15) Self-care deficit: Status: Acute Category: Medical Code(s): Z78.9 - Other specified health status (16) Aortic stenosis, moderate: Status: Acute Category: Medical Code(s): I35.0 - Nonrheumatic aortic (valve) stenosis (17) Anasarca: Status: Acute Category: Medical Code(s): R60.1 - Generalized edema (18) Cirrhosis: Status: Acute Category: Medical Code(s): K74.60 - Unspecified cirrhosis of liver Plan This is a 58-year-old male being admitted for acute on chronic CHF exacerbation, severe volume overload with anasarca. Condition complicated by his poorly controlled diabetes, peripheral vascular disease, CKD 4. Continues to require oxygen, though improved to 2 L. Being able to respond to diuresis and milrinone/nitroprusside drip. Negative this morning. Urine light yellow. Breathing over more comfortably. Continue current regimen. Cardiology assisting with care. Monitoring kidney function closely. Patient's condition serious, prognosis guarded. Monitoring kidney function closely as he may necessitate transfer to higher level of care if kidney function worsens and urine output decreases. Problems addressed as follows: #Acute on chronic hypoxic respiratory failure HFrEF exacerbation NSTEMI type II CKD stage IV Oliguria, severe exacerbation of kidney failure ? History of CAD status post 3 stents in March. ? Continue Bumex drip at 2 mg/h. Continue nitroprusside. Milrinone discontinued by cardiology today. Having response. - Suspect component of ATN given prolonged heart failure, worsening edema, contrast load on admission, cirrhosis. Severe volume overload noted. Globally overloaded with swelling in leg, ascites in abdomen, effusions bilaterally. - Increase Lokelma to 3 times a day for hyperkalemia, though patient is refusing due to taste. Potassium stable at this time. - Anticipate bump in kidney function while we aggressively diuresed, anticipate function will improve with better perfusion and improvement in volume status as he is making good urine. ? BNP elevated at 63k on admission; repeat > 37681. - ECHO earlier this month shows LVEF 20% with similar inferior akinesis as Nicole this year, had been LVEF 30% earlier this. Patient does not want LifeVest at this time after extensively discussing risks and benefits. - Continue aspirin, Plavix 75 mg. ? Given patient's advanced CKD stage IV, unable to start NARESH/ARB/ARNI, MRA, or SGLT2i. - Continue to hold isosorbide and metoprolol in the setting of his cirrhosis and concern for impaired renal perfusion. Allow for permissive hypertension. Continue hydralazine 50 mg 3 times a day. - Diuresing well, net -6.3L so far. Kidney function improving, creatinine 4.4, potassium 4.2. #Suspected cirrhosis ? Nodular contour of liver on CT abdomen suggesting cirrhosis. ? No signs of grossly decompensated cirrhosis, volume overload is low suggestive of HFrEF exacerbation though possible cirrhosis is likely contributing. ? PT/INR, platelets, are relatively unremarkable at this time. Albumin 3.2. ? Will need further evaluation by GI outpatient. #Iron deficiency anemia - Given IV venofer. -Continue ferrous sulfate tomorrow with Miralax. #Physical deconditioning ? Previously recommended SNF placement, patient declined to go. Strong concern about his ability to care for himself at home. Therapy working with him at this time. Continues to need SNF therapy, patient states he will go home with a wheelchair. Has no desire to go to rehab. Type 2 diabetes Diabetic neuropathy -Hemoglobin A1c 7.8 1 month ago; glucose this morning 82 -Continue Lantus to 30 units nightly, continue sliding scale insulin and fingersticks ACHS -SSI for additional glycemic control COPD -Not in acute exacerbation, baseline oxygen 1 to 2 L. Increased oxygen requirement due to volume overload. Tolerating 2 L at this time -DuoNebs as needed, Continue Dulera -Maintain SpO2 greater than 90% HTN HLD -Continue statin, hydralazine as above CODE STATUS: Full code Surrogate decision maker: Saurbah [phone] Lovenox 30 mg subcu daily ICU/Critical care attestation This patient is critically ill with 35 minutes devoted solely to this patient managing life/organ supporting interventions that required physician assessment. This includes time spent making adjustments in ventilator settings, IV fluid administration, titration of pressors, adjustments of medications, discussion of patient with consultants and other care providers as well as updating patient and/or family (if patient by virtue of his/her condition is unable to participate in decision making). This does not include time spent performing separately billed procedures. Time is not concurrent with that of other providers.
[2024-03-31] MEDS: [UNRECOGNIZED DRUG - OTHER] 1 EACH PERFUSION (23:40)
[2024-04-01] VITALS: BP 142/95; PULSE 92; RESP 18; TEMP 36.4; O2SAT 98
[2024-04-01 04:00] VITALS: BP 139/81; PULSE 101; RESP 18; TEMP 36.6; BMI 28.9
[2024-04-01] MEDS: BUMETANIDE 10 MG in 0.9 % SODIUM CHLORIDE 60 ML 20 MG IV ×4 (04:32→19:18)
--- NOTE | 2024-04-01 05:54 | PC.NURSE ---
Pt A&OX4. He has tolerated 3L nasal cannula throughout the night. Purewick has remained in place draining well. Pt did complain of pain and discomfort while attempting a BM. After assessing pt appeared impacted. An order for a soap suds enema was put in. After administering pt had a larger BM. 3+ edema noted to right lower extremity. Bumex gtt has been running at 2mg/hr. No complaints at this time, call light within reach.
[2024-04-01 06:15] LABS: POC Glucose,Bedside 115 (70-110)
[2024-04-01 07:50] LABS: Basophils % 0.3 % (0.1-2.0); Eosinophils # 0.1 K/mm3 (0.0-0.4); Eosinophils % 2.8 % (0.1-12.0); Hematocrit 30.3 % (42.0-52.0); Hemoglobin 9.6 g/dL (14.1-18.0); Lymphocytes # 0.5 K/mm3 (0.7-4.5); Lymphocytes % 11.6 % (10-50); Mean Corpuscular HGB Conc 31.7 g/dL (31.8-35.4); Mean Corpuscular Hemoglobin 26.2 pg (27.0-31.2); Mean Corpuscular Volume 82.6 fl (80-94); Mean Platelet Volume 10.6 fl (7.4-10.4); Monocytes # 0.5 K/mm3 (0.1-1.0); Monocytes % 13.7 % (1.7-9.3); Neutrophils # 2.8 K/mm3 (1.8-7.8); Neutrophils % 71.3 % (37.0-80.0); Platelet Count 187 K/mm3 (142-424); Red Blood Count 3.67 M/mm3 (4.60-6.20); Red Cell Distribution Width 17.2 % (11.5-17.5); White Blood Count 3.9 K/mm3 (4.8-10.8)
[2024-04-01 08:00] VITALS: BP 147/89; PULSE 96; RESP 22; TEMP 36.8; O2SAT 100
[2024-04-01 08:10] LABS: Alanine Aminotransferase 17 U/L (12-78); Albumin Level 3.3 g/dl (3.5-5.0); Albumin/Globulin Ratio 1.3 (1.1-1.8); Alkaline Phosphatase 254 U/L (38-126); Anion Gap 10.3 mEq/L (5-15); Aspartate Amino Transferase 51 U/L (17-59); Bilirubin,Total 1.6 mg/dl (0.2-1.3); Calcium 8.1 mg/dl (8.4-10.2); Carbon Dioxide 33 mmol/L (22.0-30.0); Chloride 97 mmol/L (98-107); Creatinine Clearance Estimated 31 mL/min (50-200); Estimated Glomerular Filt Rate 18 ml/min (>60); GFR (African American) 21 ML/MIN (>60); Globulin 2.6 g/dL (1.3-3.2); Glucose 62 mg/dl (74-100); Magnesium 1.8 mg/dl (1.6-2.3); Potassium 3.3 mmoL/L (3.5-5.1); Sodium 137 mmol/L (136-145); Total Protein,Serum 5.9 g/dl (6.3-8.2)
[2024-04-01 08:30] LABS: Blood Urea Nitrogen 88 mg/dl (9-20)
[2024-04-01] MEDS: GABAPENTIN 300MG CAPSULE 300 MG PO ×3 (09:04→20:05)
[2024-04-01] MEDS: ISOSORBIDE DINITRATE 10 MG TABLET 30 MG PO ×3 (09:04→20:05)
[2024-04-01] MEDS: HYDRALAZINE HCL 25MG TABLET 50 MG PO ×3 (09:04→20:05)
[2024-04-01] MEDS: FERROUS SULFATE 325MG TABLET 325 MG PO ×2 (09:05→20:05)
[2024-04-01] MEDS: ASPIRIN EC 81MG TABLET 81 MG PO (09:05)
[2024-04-01] MEDS: DOCUSATE SODIUM 10 ML/UDC UDC PO (09:05)
[2024-04-01] MEDS: ACETAMINOPHEN 325MG TAB 650 MG PO (10:08)
[2024-04-01 11:27] VITALS: BP 150/94; PULSE 92; RESP 20; TEMP 36.5; O2SAT 100
[2024-04-01 12:39] LABS: POC Glucose,Bedside 155 (70-110)
[2024-04-01 15:52] VITALS: BP 146/78; PULSE 85; RESP 18; TEMP 36.4; O2SAT 100
[2024-04-01 17:07] LABS: POC Glucose,Bedside 199 (70-110)
--- NOTE | 2024-04-01 18:33 | PC.NURSE ---
PT IS RESTING IN BED. ALERT AND ORIENTED X4. EATING AND DRINKING WELL. PT IS VERY AGGRAVATED ABOUT HAVING TO FOLLOW A FLUID RESTRICTION. 3-4+ PITTING EDEMA NOTED TO RLE. REDNESS/ABRASIONS NOTED. SWELLING NOTED TO SCROTUM. PURWICK IN PLACE. LUNG SOUNDS DIMINISHED. ABDOMEN SOFT/NON TENDER WITH ACTIVE BOWEL SOUNDS. O2 SATURATION HAS MAINTAINED 95-100% ON 3 L NC. LAKA NOTED. PT REFUSED TO GET OOB TO CHAIR THIS SHIFT. WILL CONTINUE TO MONITOR.
[2024-04-01 20:00] VITALS: BP 143/80; PULSE 83; RESP 18; TEMP 36.6; O2SAT 100
[2024-04-01 20:04] LABS: POC Glucose,Bedside 249 (70-110)
[2024-04-01] MEDS: TAMSULOSIN 0.4MG CAPSULE 0.4 MG PO (20:05)
[2024-04-01] MEDS: ATORVASTATIN 40MG TABLET 80 MG PO (20:05)
[2024-04-01] MEDS: PANTOPRAZOLE 40MG TABLET 40 MG PO (20:05)
[2024-04-01] MEDS: INSULIN GLARGINE 100 UNITS/ML 3ML FLEXPEN 20 UNIT SUBCUT (20:05)
[2024-04-01] MEDS: MORPHINE 4MG/ML SYRINGE 4 MG IV (20:12)
--- NOTE | 2024-04-01 23:02 | EXP.PN ---
Subjective *Date: 04/02/24 *Time: 21:41 Exam Data for Last 24 hours Vital signs and Labs for Last 24 Hours: Temp Pulse Resp BP Pulse Ox O2 Del Method O2 Flow Rate 97.8 F 83 18 143/80 H 100 Nasal Cannula 3 04/01/24 20:00 04/01/24 20:00 04/01/24 20:00 04/01/24 20:00 04/01/24 20:00 04/01/24 21:00 04/01/24 21:00 FiO2 28 03/28/24 18:59 Laboratory Results - last 24 hr 04/01/24 06:08: POC Glucose 115 H 04/01/24 06:52: WBC 3.9 L, RBC 3.67 L, Hgb 9.6 L, Hct 30.3 L, MCV 82.6, MCH 26.2 L, MCHC 31.7 L, RDW 17.2, Plt Count 187, MPV 10.6 H, Neut % (Auto) 71.3, Lymph % (Auto) 11.6, [place] % (Auto) 13.7 H, Eos % (Auto) 2.8, Baso % (Auto) 0.3, Neut # (Auto) 2.8, Lymph # (Auto) 0.5 L, [place] # (Auto) 0.5, Eos # (Auto) 0.1, Baso # (Auto) 0.0, Sodium 137, Potassium 3.3 L, Chloride 97 L, Carbon Dioxide 33 H, Anion Gap 10.3, BUN 88 H, Creatinine 3.60 H, Estimated Creat Clear 31, Estimated GFR 18 L*, Est GFR ( Amer) 21 L, Glucose 62 L, Calcium 8.1 L, Magnesium 1.8, Total Bilirubin 1.6 H, AST 51, ALT 17, Alkaline Phosphatase 254 H, Total Protein 5.9 L, Albumin 3.3 L, Globulin 2.6, Albumin/Globulin Ratio 1.3 04/01/24 12:32: POC Glucose 155 H 04/01/24 16:54: POC Glucose 199 H 04/01/24 19:55: POC Glucose 249 H I & O for Last 24 hours: Intake & Output 03/29/24 03/30/24 03/31/24 04/01/24 23:59 23:59 23:59 23:59 Intake Total 2393.626 / 2633.626 1723.169 / 2078.169 2628.000 / 3128.000 2778.333 / 2778.333 Output Total 5875 / 6375 4850 / 4850 3750 / 4350 4125 / 4125 Balance -3481.374 / -3741.374 -3126.831 / -2771.831 -1122.000 / -1222.000 -1346.667 / -1346.667 Weight 102.693 kg 99.989 kg 97.568 kg 96.8 kg Assessment and Plan *Assessment and plan (1) HFrEF (heart failure with reduced ejection fraction): Status: Acute Category: Medical Code(s): I50.20 - Unspecified systolic (congestive) heart failure (2) Ischemic cardiomyopathy: Status: Acute Category: Medical Code(s): I25.5 - Ischemic cardiomyopathy (3) Peripheral arterial disease: Status: Acute Category: Medical Code(s): I73.9 - Peripheral vascular disease, unspecified (4) Hyperkalemia: Status: Acute Category: Medical Code(s): E87.5 - Hyperkalemia (5) Oliguria: Status: Acute Category: Medical Code(s): R34 - Anuria and oliguria (6) CKD stage 4 due to type 2 diabetes mellitus: Status: Acute Category: Medical Code(s): E11.22 - Type 2 diabetes mellitus with diabetic chronic kidney disease; N18.4 - Chronic kidney disease, stage 4 (severe) (7) Hyperlipidemia: Status: Acute Qualifiers: Hyperlipidemia type: mixed hyperlipidemia Qualified Code(s): E78.2 - Mixed hyperlipidemia Category: Medical Code(s): E78.5 - Hyperlipidemia, unspecified (8) Diabetes mellitus: Status: Acute Qualifiers: Diabetes mellitus complication status: without complication Diabetes mellitus residential insulin use: with residential use Diabetes mellitus type: type 2 Qualified Code(s): E11.9 - Type 2 diabetes mellitus without complications; Z79.4 - care home (current) use of insulin Category: Medical Code(s): E11.9 - Type 2 diabetes mellitus without complications (9) COPD (chronic obstructive pulmonary disease): Status: Acute Qualifiers: COPD type: chronic bronchitis Chronic bronchitis type: unspecified Qualified Code(s): J42 - Unspecified chronic bronchitis Category: Medical Code(s): J44.9 - Chronic obstructive pulmonary disease, unspecified (10) Hypertension: Status: Acute Qualifiers: Hypertension type: primary hypertension Qualified Code(s): I10 - Essential (primary) hypertension Category: Medical Code(s): I10 - Essential (primary) hypertension (11) Non-STEMI (non-ST elevated myocardial infarction): Status: Resolved Category: Medical Code(s): I21.4 - Non-ST elevation (NSTEMI) myocardial infarction (12) Chronic respiratory failure: Status: Acute Category: Medical Code(s): J96.10 - Chronic respiratory failure, unspecified whether with hypoxia or hypercapnia (13) PVD (peripheral vascular disease) with claudication: Status: Acute Category: Medical Code(s): I73.9 - Peripheral vascular disease, unspecified (14) Pleural effusion: Status: Acute Category: Medical Code(s): J90 - Pleural effusion, not elsewhere classified (15) Self-care deficit: Status: Acute Category: Medical Code(s): Z78.9 - Other specified health status (16) Aortic stenosis, moderate: Status: Acute Category: Medical Code(s): I35.0 - Nonrheumatic aortic (valve) stenosis (17) Anasarca: Status: Acute Category: Medical Code(s): R60.1 - Generalized edema (18) Cirrhosis: Status: Acute Category: Medical Code(s): K74.60 - Unspecified cirrhosis of liver Plan This is a 58-year-old male being admitted for acute on chronic CHF exacerbation, severe volume overload with anasarca. Condition complicated by his poorly controlled diabetes, peripheral vascular disease, CKD 4. Continues to require oxygen, though improved to 2 L. Being able to respond to diuresis and milrinone/nitroprusside drip. Negative this morning. Urine light yellow. Breathing over more comfortably. Continue current regimen. Cardiology assisting with care. Monitoring kidney function closely. Patient's condition serious, prognosis guarded. Monitoring kidney function closely as he may necessitate transfer to higher level of care if kidney function worsens and urine output decreases. Problems addressed as follows: #Acute on chronic hypoxic respiratory failure HFrEF exacerbation NSTEMI type II CKD stage IV Oliguria, severe exacerbation of kidney failure ? History of CAD status post 3 stents in March. ? Continue Bumex drip at 2 mg/h. Continue nitroprusside. Milrinone discontinued by cardiology today. Having response. - Suspect component of ATN given prolonged heart failure, worsening edema, contrast load on admission, cirrhosis. Severe volume overload noted. Globally overloaded with swelling in leg, ascites in abdomen, effusions bilaterally. - Increase Lokelma to 3 times a day for hyperkalemia, though patient is refusing due to taste. Potassium stable at this time. - Anticipate bump in kidney function while we aggressively diuresed, anticipate function will improve with better perfusion and improvement in volume status as he is making good urine. ? BNP elevated at 63k on admission; repeat > 23449. - ECHO earlier this month shows LVEF 20% with similar inferior akinesis as March this year, had been LVEF 30% earlier this. Patient does not want LifeVest at this time after extensively discussing risks and benefits. - Continue aspirin, Plavix 75 mg. ? Given patient's advanced CKD stage IV, unable to start NARESH/ARB/ARNI, MRA, or SGLT2i. - Continue to hold isosorbide and metoprolol in the setting of his cirrhosis and concern for impaired renal perfusion. Allow for permissive hypertension. Continue hydralazine 50 mg 3 times a day. - Diuresing well, net -8L so far. Kidney function improving, creatinine 4.4, potassium 4.2. #Suspected cirrhosis ? Nodular contour of liver on CT abdomen suggesting cirrhosis. ? No signs of grossly decompensated cirrhosis, volume overload is low suggestive of HFrEF exacerbation though possible cirrhosis is likely contributing. ? PT/INR, platelets, are relatively unremarkable at this time. Albumin 3.2. ? Will need further evaluation by GI outpatient. #Iron deficiency anemia - Given IV venofer. -Continue ferrous sulfate tomorrow with Miralax. #Physical deconditioning ? Previously recommended SNF placement, patient declined to go. Strong concern about his ability to care for himself at home. Therapy working with him at this time. Continues to need SNF therapy, patient states he will go home with a wheelchair. Has no desire to go to rehab. Type 2 diabetes Diabetic neuropathy -Hemoglobin A1c 7.8 1 month ago; glucose this morning 82 -Continue Lantus to 30 units nightly, continue sliding scale insulin and fingersticks ACHS -SSI for additional glycemic control COPD -Not in acute exacerbation, baseline oxygen 1 to 2 L. Increased oxygen requirement due to volume overload. Tolerating 2 L at this time -DuoNebs as needed, Continue Dulera -Maintain SpO2 greater than 90% HTN HLD -Continue statin, hydralazine as above CODE STATUS: Full code Surrogate decision maker: Saurabh [phone] Lovenox 30 mg subcu daily ICU/Critical care attestation This patient is critically ill with 35 minutes devoted solely to this patient managing life/organ supporting interventions that required physician assessment. This includes time spent making adjustments in ventilator settings, IV fluid administration, titration of pressors, adjustments of medications, discussion of patient with consultants and other care providers as well as updating patient and/or family (if patient by virtue of his/her condition is unable to participate in decision making). This does not include time spent performing separately billed procedures. Time is not concurrent with that of other providers.
[2024-04-02] VITALS: BP 143/82; PULSE 104; RESP 16; TEMP 36.3; O2SAT 99
[2024-04-02] MEDS: BUMETANIDE 10 MG in 0.9 % SODIUM CHLORIDE 60 ML 20 MG IV ×5 (01:36→20:39)
[2024-04-02 04:00] VITALS: BP 136/84; PULSE 104; RESP 18; TEMP 36.9; O2SAT 100; BMI 29.5
[2024-04-02 06:09] LABS: POC Glucose,Bedside 118 (70-110)
[2024-04-02 08:00] VITALS: BP 145/98; PULSE 90; RESP 20; TEMP 36.9; O2SAT 100
[2024-04-02] MEDS: FERROUS SULFATE 325MG TABLET 325 MG PO ×2 (08:43→20:40)
[2024-04-02] MEDS: HYDRALAZINE HCL 25MG TABLET 50 MG PO ×3 (08:43→20:40)
[2024-04-02] MEDS: ISOSORBIDE DINITRATE 10 MG TABLET 30 MG PO ×3 (08:43→20:42)
[2024-04-02] MEDS: GABAPENTIN 300MG CAPSULE 300 MG PO ×3 (08:43→20:40)
[2024-04-02] MEDS: ASPIRIN EC 81MG TABLET 81 MG PO (08:43)
[2024-04-02 12:00] LABS: POC Glucose,Bedside 108 (70-110)
[2024-04-02 16:00] VITALS: BP 148/91; PULSE 90; RESP 20; TEMP 36.4; O2SAT 100
[2024-04-02 16:14] LABS: POC Glucose,Bedside 92 (70-110)
--- NOTE | 2024-04-02 17:51 | PC.NURSE ---
pt resting supine in bed, a&ox4. bumex infusing @ 20mg/hr. tolerating 2L NC with sats >90%. pt has been resistive to care at times, refusing lab draws. pt has asked to be left alone and does not like to be disturbed. cluster care carried out. fsbs has not required coverage. incentive spirometer provided to pt. no needs at this time. call light within reach.
[2024-04-02 20:00] VITALS: BP 138/78; PULSE 99; RESP 18; TEMP 36.8; O2SAT 99
[2024-04-02] MEDS: INSULIN GLARGINE 100 UNITS/ML 3ML FLEXPEN 20 UNIT SUBCUT (20:40)
[2024-04-02] MEDS: ATORVASTATIN 40MG TABLET 80 MG PO (20:40)
[2024-04-02] MEDS: TAMSULOSIN 0.4MG CAPSULE 0.4 MG PO (20:41)
[2024-04-02] MEDS: PANTOPRAZOLE 40MG TABLET 40 MG PO (20:41)
[2024-04-02] MEDS: humaLOG 100 UNITS/ML 10ML VIAL (SSI) SUBCUT (20:42)
--- NOTE | 2024-04-02 21:43 | P.PN_ITS ---
Subjective *Date: 04/02/24 *Time: 21:43 Interval history: Feeling sleepy this morning, wanted to be left alone. No acute concerns. Exam Data for Last 24 hours Vital signs and Labs for Last 24 Hours: Temp Pulse Resp BP Pulse Ox O2 Del Method O2 Flow Rate 98.2 F 99 H 18 138/78 99 Nasal Cannula 2 04/02/24 20:00 04/02/24 20:00 04/02/24 20:00 04/02/24 20:00 04/02/24 20:00 04/02/24 21:26 04/02/24 21:26 FiO2 28 03/28/24 18:59 Laboratory Results - last 24 hr 04/02/24 06:02: POC Glucose 118 H 04/02/24 11:52: POC Glucose 108 04/02/24 16:01: POC Glucose 92 I & O for Last 24 hours: Intake & Output 03/30/24 03/31/24 04/01/24 04/02/24 23:59 23:59 23:59 23:59 Intake Total 1723.169 / 2078.169 2628.000 / 3128.000 2778.333 / 2778.333 1717.667 / 1717.667 Output Total 4850 / 4850 3750 / 4350 4125 / 4425 2275 / 2275 Balance -3126.831 / -2771.831 -1122.000 / -1222.000 -1346.667 / -1646.667 - 557.333 / -557.333 Weight 99.989 kg 97.568 kg 96.8 kg 98.747 kg Constitutional Constitutional: no acute distress Comments: Generalized anasarca *Routine HEENT Exam Head: Present normocephalic Eye: Present EOMI and PERRL ENT: Present mucous membranes moist *Routine Neck Exam Neck: Present supple; Absent lymphadenopathy *Routine Respiratory Exam Respiratory: Present decreased breath sounds *Routine Cardiovascular Exam Cardiovascular: Present RRR and murmur; Absent gallop or rubs *Routine Abdominal Exam Abdominal: Present soft and normoactive bowel sounds; Absent tenderness *Routine Extremities Exam Extremities: Present edema Comments: Right lower extremity pitting edema 2+. Chronic venous stasis changes Left AKA. *Routine Skin Exam Skin: Present warm; Absent rash *Routine Neurological Exam Neurological: Present alert, oriented X3 and CN II-XII intact Assessment and Plan *Assessment and plan (1) HFrEF (heart failure with reduced ejection fraction): Status: Acute Category: Medical Code(s): I50.20 - Unspecified systolic (congestive) heart failure (2) Ischemic cardiomyopathy: Status: Acute Category: Medical Code(s): I25.5 - Ischemic cardiomyopathy (3) Peripheral arterial disease: Status: Acute Category: Medical Code(s): I73.9 - Peripheral vascular disease, unspecified (4) Hyperkalemia: Status: Acute Category: Medical Code(s): E87.5 - Hyperkalemia (5) Oliguria: Status: Acute Category: Medical Code(s): R34 - Anuria and oliguria (6) CKD stage 4 due to type 2 diabetes mellitus: Status: Acute Category: Medical Code(s): E11.22 - Type 2 diabetes mellitus with diabetic chronic kidney disease; N18.4 - Chronic kidney disease, stage 4 (severe) (7) Hyperlipidemia: Status: Acute Qualifiers: Hyperlipidemia type: mixed hyperlipidemia Qualified Code(s): E78.2 - Mixed hyperlipidemia Category: Medical Code(s): E78.5 - Hyperlipidemia, unspecified (8) Diabetes mellitus: Status: Acute Qualifiers: Diabetes mellitus type: type 2 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: with group home use Diabetes mellitus complication status: without complication Qualified Code(s): E11.9 - Type 2 diabetes mellitus without complications; Z79.4 - FPC (current) use of insulin Category: Medical Code(s): E11.9 - Type 2 diabetes mellitus without complications (9) COPD (chronic obstructive pulmonary disease): Status: Acute Qualifiers: COPD type: chronic bronchitis Chronic bronchitis type: unspecified Qualified Code(s): J42 - Unspecified chronic bronchitis Category: Medical Code(s): J44.9 - Chronic obstructive pulmonary disease, unspecified (10) Hypertension: Status: Acute Qualifiers: Hypertension type: primary hypertension Qualified Code(s): I10 - Essential (primary) hypertension Category: Medical Code(s): I10 - Essential (primary) hypertension (11) Non-STEMI (non-ST elevated myocardial infarction): Status: Resolved Category: Medical Code(s): I21.4 - Non-ST elevation (NSTEMI) myocardial infarction (12) Chronic respiratory failure: Status: Acute Category: Medical Code(s): J96.10 - Chronic respiratory failure, unspecified whether with hypoxia or hypercapnia (13) PVD (peripheral vascular disease) with claudication: Status: Acute Category: Medical Code(s): I73.9 - Peripheral vascular disease, unspecified (14) Pleural effusion: Status: Acute Category: Medical Code(s): J90 - Pleural effusion, not elsewhere classified (15) Self-care deficit: Status: Acute Category: Medical Code(s): Z78.9 - Other specified health status (16) Aortic stenosis, moderate: Status: Acute Category: Medical Code(s): I35.0 - Nonrheumatic aortic (valve) stenosis (17) Anasarca: Status: Acute Category: Medical Code(s): R60.1 - Generalized edema (18) Cirrhosis: Status: Acute Category: Medical Code(s): K74.60 - Unspecified cirrhosis of liver Plan This is a 58-year-old male being admitted for acute on chronic CHF exacerbation, severe volume overload with anasarca. Condition complicated by his poorly controlled diabetes, peripheral vascular disease, CKD 4. Continues to require oxygen, though improved to 2 L. Being able to respond to diuresis and milrinone/nitroprusside drip. Negative this morning. Urine light yellow. Breathing over more comfortably. Continue current regimen. Cardiology assisting with care. Monitoring kidney function closely. Patient's condition serious, prognosis guarded. Monitoring kidney function closely as he may nec essitate transfer to higher level of care if kidney function worsens and urine output decreases. Problems addressed as follows: #Acute on chronic hypoxic respiratory failure HFrEF exacerbation NSTEMI type II CKD stage IV Oliguria, severe exacerbation of kidney failure ? History of CAD status post 3 stents in March. ? Continue Bumex drip at 2 mg/h. Continue nitroprusside. Milrinone discontinued by cardiology today. Having response. - Suspect component of ATN given prolonged heart failure, worsening edema, contrast load on admission, cirrhosis. Severe volume overload noted. Globally overloaded with swelling in leg, ascites in abdomen, effusions bilaterally. - Increase Lokelma to 3 times a day for hyperkalemia, though patient is refusing due to taste. Potassium stable at this time. - Anticipate bump in kidney function while we aggressively diuresed, anticipate function will improve with better perfusion and improvement in volume status as he is making good urine. ? BNP elevated at 63k on admission; repeat > 81675. - ECHO earlier this month shows LVEF 20% with similar inferior akinesis as March this year, had been LVEF 30% earlier this. Patient does not want LifeVest at this time after extensively discussing risks and benefits. - Continue aspirin, Plavix 75 mg. ? Given patient's advanced CKD stage IV, unable to start NARESH/ARB/ARNI, MRA, or SGLT2i. - Continue to hold isosorbide and metoprolol in the setting of his cirrhosis and concern for impaired renal perfusion. Allow for permissive hypertension. Continue hydralazine 50 mg 3 times a day. - Diuresing well, net -9.6L so far. Kidney function improving, creatinine 4.4, potassium 4.2. ? Follow-up repeat BMP tomorrow. #Suspected cirrhosis ? Nodular contour of liver on CT abdomen suggesting cirrhosis. ? No signs of grossly decompensated cirrhosis, volume overload is low suggestive of HFrEF exacerbation though possible cirrhosis is likely contributing. ? PT/INR, platelets, are relatively unremarkable at this time. Albumin 3.2. ? Will need further evaluation by GI outpatient. #Iron deficiency anemia - Given IV venofer. -Continue ferrous sulfate tomorrow with Miralax. #Physical deconditioning ? Previously recommended SNF placement, patient declined to go. Strong concern about his ability to care for himself at home. Therapy working with him at this time. Continues to need SNF therapy, patient states he will go home with a wheelchair. Has no desire to go to rehab. Type 2 diabetes Diabetic neuropathy -Hemoglobin A1c 7.8 1 month ago; glucose this morning 82 -Continue Lantus to 30 units nightly, continue sliding scale insulin and fingersticks ACHS -SSI for additional glycemic control COPD -Not in acute exacerbation, baseline oxygen 1 to 2 L. Increased oxygen requirement due to volume overload. Tolerating 2 L at this time -DuoNebs as needed, Continue Dulera -Maintain SpO2 greater than 90% HTN HLD -Continue statin, hydralazine as above CODE STATUS: Full code Surrogate decision maker: Saurabh [phone] Lovenox 30 mg subcu daily ICU/Critical care attestation This patient is critically ill with 35 minutes devoted solely to this patient managing life/organ supporting interventions that required physician assessment. This includes time spent making adjustments in ventilator settings, IV fluid administration, titration of pressors, adjustments of medications, discussion of patient with consultants and other care providers as well as updating patient and/or family (if patient by virtue of his/her condition is unable to participate in decision making). This does not include time spent performing separately billed procedures. Time is not concurrent with that of other providers.
[2024-04-03] VITALS: BP 143/91; PULSE 91; RESP 17; TEMP 36.6; O2SAT 100
[2024-04-03] MEDS: BUMETANIDE 10 MG in 0.9 % SODIUM CHLORIDE 60 ML 20 MG IV ×3 (01:18→10:51)
[2024-04-03 04:00] VITALS: BP 144/91; PULSE 89; RESP 16; TEMP 36.7; O2SAT 98; BMI 27.9
[2024-04-03 05:34] LABS: POC Glucose,Bedside 173 (70-110)
[2024-04-03 08:00] VITALS: BP 140/85; PULSE 92; RESP 18; TEMP 37.1; O2SAT 99
[2024-04-03] MEDS: ISOSORBIDE DINITRATE 10 MG TABLET 30 MG PO ×3 (09:18→21:22)
[2024-04-03] MEDS: ASPIRIN EC 81MG TABLET 81 MG PO (09:18)
[2024-04-03] MEDS: HYDRALAZINE HCL 25MG TABLET 50 MG PO ×3 (09:19→21:22)
[2024-04-03] MEDS: GABAPENTIN 300MG CAPSULE 300 MG PO ×3 (09:19→21:22)
[2024-04-03] MEDS: FERROUS SULFATE 325MG TABLET 325 MG PO ×2 (09:19→21:23)
[2024-04-03 11:36] LABS: Basophils % 0.5 % (0.1-2.0); Eosinophils # 0.1 K/mm3 (0.0-0.4); Eosinophils % 2.2 % (0.1-12.0); Hematocrit 31.7 % (42.0-52.0); Lymphocytes # 0.6 K/mm3 (0.7-4.5); Lymphocytes % 13.6 % (10-50); Mean Corpuscular HGB Conc 31.5 g/dL (31.8-35.4); Mean Corpuscular Hemoglobin 26.5 pg (27.0-31.2); Mean Corpuscular Volume 83.9 fl (80-94); Mean Platelet Volume 10.4 fl (7.4-10.4); Monocytes # 0.5 K/mm3 (0.1-1.0); Monocytes % 12.1 % (1.7-9.3); Neutrophils # 2.9 K/mm3 (1.8-7.8); Neutrophils % 71.4 % (37.0-80.0); Platelet Count 189 K/mm3 (142-424); Red Blood Count 3.78 M/mm3 (4.60-6.20); Red Cell Distribution Width 17.2 % (11.5-17.5)
[2024-04-03 11:41] LABS: Chloride 93 mmol/L (98-107)
[2024-04-03 11:42] LABS: Albumin Level 3.5 g/dl (3.5-5.0); Potassium 3.5 mmoL/L (3.5-5.1); Sodium 136 mmol/L (136-145)
[2024-04-03 11:44] LABS: Alanine Aminotransferase 19 U/L (12-78); Aspartate Amino Transferase 50 U/L (17-59); Blood Urea Nitrogen 79 mg/dl (9-20); Creatinine Clearance Estimated 38 mL/min (50-200); Estimated Glomerular Filt Rate 23 ml/min (>60); GFR (African American) 27 ML/MIN (>60)
[2024-04-03 11:45] LABS: Albumin/Globulin Ratio 1.3 (1.1-1.8); Alkaline Phosphatase 296 U/L (38-126); Anion Gap 12.5 mEq/L (5-15); Bilirubin,Total 1.8 mg/dl (0.2-1.3); Calcium 8.1 mg/dl (8.4-10.2); Carbon Dioxide 34 mmol/L (22.0-30.0); Globulin 2.7 g/dL (1.3-3.2); Glucose 150 mg/dl (74-100); Magnesium 1.5 mg/dl (1.6-2.3); Total Protein,Serum 6.2 g/dl (6.3-8.2)
[2024-04-03 12:26] LABS: NT Pro Brain Natriuretic Pep. 83100 pg/mL (0-125)
[2024-04-03 15:57] LABS: POC Glucose,Bedside 116 (70-110)
[2024-04-03 16:00] VITALS: BP 133/84; PULSE 90; RESP 18; TEMP 36.6; O2SAT 100
[2024-04-03] MEDS: BUMETANIDE 1MG/4ML VIAL 2 MG IV (16:19)
[2024-04-03 20:00] VITALS: BP 134/74; PULSE 64; RESP 18; TEMP 36.7; O2SAT 96
--- NOTE | 2024-04-03 20:00 | PC.NURSE ---
Pt refused to take humalog but did take lantus this evening (FSBS 185). Pt also refused his docusate and stated he did not need it.
[2024-04-03 20:48] LABS: POC Glucose,Bedside 185 (70-110)
[2024-04-03] MEDS: ATORVASTATIN 40MG TABLET 80 MG PO (21:22)
[2024-04-03] MEDS: TAMSULOSIN 0.4MG CAPSULE 0.4 MG PO (21:22)
[2024-04-03] MEDS: PANTOPRAZOLE 40MG TABLET 40 MG PO (21:22)
[2024-04-03] MEDS: INSULIN GLARGINE 100 UNITS/ML 3ML FLEXPEN 20 UNIT SUBCUT (21:23)
[2024-04-04] VITALS (15 sets, daily range): BP systolic 120–154; BP diastolic 62–91; PULSE 80–93; RESP 16–20; TEMP 36.4–36.8; O2SAT 92–100; BMI 27.5
--- NOTE | 2024-04-04 | IR_ITS ---
APPROVED REPORT Patient Location: Inpatient Employment Manager: SHARRI Trejo RT (R) PROCEDURES Bilateral selective renal angiography INDICATION Acute on chronic renal failure, Malignant hypertension, Renal artery stenosis Informed consent was obtained prior to the procedure. COMPLICATIONS None Estimated Blood Loss: Less than 10 mls TECHNIQUE 1% lidocaine used to anesthetize the right femoral groin. The right femoral artery was accessed via the Seldinger technique. A 4 [place] sheath was placed in the right femoral artery. The JR4 catheter was used to selectively intubate each renal artery. At the end of the diagnostic angiogram the patient was transferred to the postop holding area in stable condition for sheath removal. ANGIOGRAPHIC RESULTS Right renal artery singular and is widely patent in its proximal and mid segment. Distally there is scant parenchymal flow consistent with small vessel vasculopathy Left renal artery is singular and has an ostial proximal eccentric 50% stenosis followed by mid vessel 50% stenosis. Distally there is scant parenchymal flow consistent with small vessel vasculopathy IMPRESSION Renal artery stenosis as described above which is clinically insignificant Distal small vessel vasculopathy most consistent with hypertensive vasculopathy PLAN 1. Medical management Electronically signed by : Robert Mcfadden MD 04/04/2024 10:55:13
--- NOTE | 2024-04-04 00:41 | EXP.PN ---
Subjective *Date: 04/03/24 *Time: 00:42 Interval history: Doing and diuresing well. No acute complaints. Exam Data for Last 24 hours Vital signs and Labs for Last 24 Hours: Temp Pulse Resp BP Pulse Ox O2 Del Method O2 Flow Rate 98.1 F 64 18 134/74 96 Nasal Cannula 2 04/03/24 20:00 04/03/24 20:00 04/03/24 20:00 04/03/24 20:00 04/03/24 20:00 04/03/24 23:00 04/03/24 23:00 FiO2 28 03/28/24 18:59 Laboratory Results - last 24 hr 04/02/24 20:39: POC Glucose 173 H 04/03/24 06:00: POC Glucose 116 H 04/03/24 11:27: WBC 4.0 L, RBC 3.78 L, Hgb 10.0 L, Hct 31.7 L, MCV 83.9, MCH 26.5 L, MCHC 31.5 L, RDW 17.2, Plt Count 189, MPV 10.4, Neut % (Auto) 71.4, Lymph % (Auto) 13.6, [place] % (Auto) 12.1 H, Eos % (Auto) 2.2, Baso % (Auto) 0.5, Neut # (Auto) 2.9, Lymph # (Auto) 0.6 L, [place] # (Auto) 0.5, Eos # (Auto) 0.1, Baso # (Auto) 0.0, Sodium 136, Potassium 3.5, Chloride 93 L, Carbon Dioxide 34 H, Anion Gap 12.5, BUN 79 H, Creatinine 2.90 H, Estimated Creat Clear 38, Estimated GFR 23 L, Est GFR ( Amer) 27 L D, Glucose 150 H, Calcium 8.1 L, Magnesium 1.5 L D, Total Bilirubin 1.8 H, AST 50, ALT 19, Alkaline Phosphatase 296 H, NT-Pro-B Natriuret Pep 01314 H, Total Protein 6.2 L, Albumin 3.5, Globulin 2.7, Albumin/Globulin Ratio 1.3 04/03/24 20:41: POC Glucose 185 H I & O for Last 24 hours: Intake & Output 01/04/25 01/05/25 01/06/25 01/07/25 23:59 23:59 23:59 23:59 Intake Total 2778.333 / 2778.333 1717.667 / 2067.667 1953 / 1953 Output Total 4125 / 4425 2275 / 2825 1675 / 1675 Balance -1346.667 / -1646.667 -557.333 / -757.333 279 / 279 Weight 96.8 kg 98.747 kg 93.667 kg Constitutional Constitutional: no acute distress Comments: Generalized anasarca *Routine HEENT Exam Head: Present normocephalic Eye: Present EOMI and PERRL ENT: Present mucous membranes moist *Routine Neck Exam Neck: Present supple; Absent lymphadenopathy *Routine Respiratory Exam Respiratory: Present decreased breath sounds *Routine Cardiovascular Exam Cardiovascular: Present RRR and murmur; Absent gallop or rubs *Routine Abdominal Exam Abdominal: Present soft and normoactive bowel sounds; Absent tenderness *Routine Extremities Exam Extremities: Present edema Comments: Right lower extremity pitting edema 2+. Chronic venous stasis changes Left AKA. *Routine Skin Exam Skin: Present warm; Absent rash *Routine Neurological Exam Neurological: Present alert, oriented X3 and CN II-XII intact Assessment and Plan *Assessment and plan (1) HFrEF (heart failure with reduced ejection fraction): Status: Acute Category: Medical Code(s): I50.20 - Unspecified systolic (congestive) heart failure (2) Ischemic cardiomyopathy: Status: Acute Category: Medical Code(s): I25.5 - Ischemic cardiomyopathy (3) Peripheral arterial disease: Status: Acute Category: Medical Code(s): I73.9 - Peripheral vascular disease, unspecified (4) Hyperkalemia: Status: Acute Category: Medical Code(s): E87.5 - Hyperkalemia (5) Oliguria: Status: Acute Category: Medical Code(s): R34 - Anuria and oliguria (6) CKD stage 4 due to type 2 diabetes mellitus: Status: Acute Category: Medical Code(s): E11.22 - Type 2 diabetes mellitus with diabetic chronic kidney disease; N18.4 - Chronic kidney disease, stage 4 (severe) (7) Hyperlipidemia: Status: Acute Qualifiers: Hyperlipidemia type: mixed hyperlipidemia Qualified Code(s): E78.2 - Mixed hyperlipidemia Category: Medical Code(s): E78.5 - Hyperlipidemia, unspecified (8) Diabetes mellitus: Status: Acute Qualifiers: Diabetes mellitus type: type 2 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: with long haul truck driver use Diabetes mellitus complication status: without complication Qualified Code(s): E11.9 - Type 2 diabetes mellitus without complications; Z79.4 - FDC (current) use of insulin Category: Medical Code(s): E11.9 - Type 2 diabetes mellitus without complications (9) COPD (chronic obstructive pulmonary disease): Status: Acute Qualifiers: COPD type: chronic bronchitis Chronic bronchitis type: unspecified Qualified Code(s): J42 - Unspecified chronic bronchitis Category: Medical Code(s): J44.9 - Chronic obstructive pulmonary disease, unspecified (10) Hypertension: Status: Acute Qualifiers: Hypertension type: primary hypertension Qualified Code(s): I10 - Essential (primary) hypertension Category: Medical Code(s): I10 - Essential (primary) hypertension (11) Non-STEMI (non-ST elevated myocardial infarction): Status: Resolved Category: Medical Code(s): I21.4 - Non-ST elevation (NSTEMI) myocardial infarction (12) Chronic respiratory failure: Status: Acute Category: Medical Code(s): J96.10 - Chronic respiratory failure, unspecified whether with hypoxia or hypercapnia (13) PVD (peripheral vascular disease) with claudication: Status: Acute Category: Medical Code(s): I73.9 - Peripheral vascular disease, unspecified (14) Pleural effusion: Status: Acute Category: Medical Code(s): J90 - Pleural effusion, not elsewhere classified (15) Self-care deficit: Status: Acute Category: Medical Code(s): Z78.9 - Other specified health status (16) Aortic stenosis, moderate: Status: Acute Category: Medical Code(s): I35.0 - Nonrheumatic aortic (valve) stenosis (17) Anasarca: Status: Acute Category: Medical Code(s): R60.1 - Generalized edema (18) Cirrhosis: Status: Acute Category: Medical Code(s): K74.60 - Unspecified cirrhosis of liver Plan This is a 58-year-old male being admitted for acute on chronic CHF exacerbation, severe volume overload with anasarca. Condition complicated by his poorly controlled diabetes, peripheral vascular disease, CKD 4. Continues to require oxygen, though improved to 2 L. Being able to respond to diuresis and milrinone/nitroprusside drip. Negative this morning. Urine light yellow. Breathing over more comfortably. Continue current regimen. Cardiology assisting with care. Monitoring kidney function closely. Patient's condition serious, prognosis guarded. Monitoring kidney function closely as he may necessitate transfer to higher level of care if kidney function worsens and urine output decreases. Problems addressed as follows: #Acute on chronic hypoxic respiratory failure HFrEF exacerbation NSTEMI type II CKD stage IV Oliguria, severe exacerbation of kidney failure ? History of CAD status post 3 stents in March. ? BNP elevated at 63k on admission; repeat > 60499. - ECHO earlier this month shows LVEF 20% with similar inferior akinesis as March this year, had been LVEF 30% earlier this. Patient does not want LifeVest at this time after extensively discussing risks and benefits. ? IV Bumex 2 mg twice daily. Bumex drip discontinued at 4 PM today, can be restarted if IV Bumex is not sufficient. Has gone through 53 bags of Bumex thus far. ? Creatinine improving 2.9, peaked at 4.5. Electrolytes stable - Continue aspirin, Plavix 75 mg. ? Given patient's advanced CKD stage IV, unable to start NARESH/ARB/ARNI, MRA, or SGLT2i. - Continue to hold isosorbide and metoprolol in the setting of his cirrhosis and concern for impaired renal perfusion. Allow for permissive hypertension. Continue hydralazine 50 mg 3 times a day. - Diuresing well, net -9.6L so far. Kidney function improving, creatinine 4.4, potassium 4.2. ? Follow-up repeat BMP tomorrow. #Suspected cirrhosis ? Nodular contour of liver on CT abdomen suggesting cirrhosis. ? No signs of grossly decompensated cirrhosis, volume overload is low suggestive of HFrEF exacerbation though possible cirrhosis is likely contributing. ? PT/INR, platelets, are relatively unremarkable at this time. Albumin 3.2. ? Will need further evaluation by GI outpatient. #Iron deficiency anemia - Given IV venofer. -Continue ferrous sulfate tomorrow with Miralax. #Physical deconditioning ? Previously recommended SNF placement, patient declined to go. Strong concern about his ability to care for himself at home. Therapy working with him at this time. Continues to need SNF therapy, patient states he will go home with a wheelchair. Has no desire to go to rehab. Type 2 diabetes Diabetic neuropathy -Hemoglobin A1c 7.8 1 month ago; glucose this morning 82 -Continue Lantus to 30 units nightly, continue sliding scale insulin and fingersticks ACHS -SSI for additional glycemic control COPD -Not in acute exacerbation, baseline oxygen 1 to 2 L. Increased oxygen requirement due to volume overload. Tolerating 2 L at this time -DuoNebs as needed, Continue Dulera -Maintain SpO2 greater than 90% HTN HLD -Continue statin, hydralazine as above CODE STATUS: Full code Surrogate decision maker: Saurabh [phone] Lovenox 30 mg subcu daily ICU/Critical care attestation This patient is critically ill with 35 minutes devoted solely to this patient managing life/organ supporting interventions that required physician assessment. This includes time spent making adjustments in ventilator settings, IV fluid administration, titration of pressors, adjustments of medications, discussion of patient with consultants and other care providers as well as updating patient and/or family (if patient by virtue of his/her condition is unable to participate in decision making). This does not include time spent performing separately billed procedures. Time is not concurrent with that of other providers.
--- NOTE | 2024-04-04 00:58 | PC.NURSE ---
Pt rude and cursing at tech when tech attempted to get pt vital signs. Pt stated that he wanted to be left alone.
[2024-04-04] MEDS: BUMETANIDE 1MG/4ML VIAL 2 MG IV ×3 (02:39→20:16)
--- NOTE | 2024-04-04 05:16 | PC.NURSE ---
Pt refused vitals signs, and later refused FSBS and insulin, stated that he just wanted to sleep
[2024-04-04 06:03] LABS: POC Glucose,Bedside 170 (70-110)
--- NOTE | 2024-04-04 06:03 | PC.NURSE ---
Pt allowed this nurse to get a FSBS (170), however he did refuse insulin again
[2024-04-04] MEDS: GABAPENTIN 300MG CAPSULE 300 MG PO ×2 (08:35→20:18)
[2024-04-04] MEDS: HYDRALAZINE HCL 25MG TABLET 50 MG PO ×2 (08:35→20:17)
[2024-04-04] MEDS: ISOSORBIDE DINITRATE 10 MG TABLET 30 MG PO ×2 (08:36→20:17)
--- NOTE | 2024-04-04 08:48 | PC.NURSE ---
therapy in room with pt.
--- NOTE | 2024-04-04 10:07 | P.PN_ITS ---
Subjective Subjective Date: 04/04/24 Time: 10:08 Principal diagnosis: HFrEF, CKD Interval history: 58-year-old white male in bed in no acute distress. Still with lower extremity edema but continues to improve. Net negative urine output has approached 10 L this admission Creatinine yesterday down to 2.9 (baseline for this patient) Discussed recommendation of proceeding with renal angiogram and pt agrees to proceed. Exam Data for Last 24 hours Vital signs and Labs for Last 24 Hours: Temp Pulse Resp BP Pulse Ox O2 Del Method O2 Flow Rate 97.8 F 84 20 138/87 100 Nasal Cannula 2 04/04/24 08:00 04/04/24 08:00 04/04/24 08:00 04/04/24 08:00 04/04/24 08:00 04/04/24 08:42 04/04/24 08:42 FiO2 28 03/28/24 18:59 Laboratory Results - last 24 hr 04/03/24 06:00: POC Glucose 116 H 04/03/24 11:27: WBC 4.0 L, RBC 3.78 L, Hgb 10.0 L, Hct 31.7 L, MCV 83.9, MCH 26.5 L, MCHC 31.5 L, RDW 17.2, Plt Count 189, MPV 10.4, Neut % (Auto) 71.4, Lymph % (Auto) 13.6, [place] % (Auto) 12.1 H, Eos % (Auto) 2.2, Baso % (Auto) 0.5, Neut # (Auto) 2.9, Lymph # (Auto) 0.6 L, [place] # (Auto) 0.5, Eos # (Auto) 0.1, Baso # (Auto) 0.0, Sodium 136, Potassium 3.5, Chloride 93 L, Carbon Dioxide 34 H , Anion Gap 12.5, BUN 79 H, Creatinine 2.90 H, Estimated Creat Clear 38, Estimated GFR 23 L, Est GFR ( Amer) 27 L D, Glucose 150 H, Calcium 8.1 L, Magnesium 1.5 L D, Total Bilirubin 1.8 H, AST 50, ALT 19, Alkaline Phosphatase 296 H, NT-Pro-B Natriuret Pep 57797 H, Total Protein 6.2 L, Albumin 3.5, Globulin 2.7, Albumin/Globulin Ratio 1.3 04/03/24 20:41: POC Glucose 185 H 04/04/24 05:53: POC Glucose 170 H I & O for Last 24 hours: Intake & Output 04/01/24 04/02/24 04/03/24 04/04/24 11:59 11:59 11:59 11:59 Intake Total 2504.000 / 2504.000 2284.333 / 2284.333 1705.667 / 1705.667 960 / 960 Output Total 5525 / 5525 2100 / 2600 2650 / 2650 1450 / 1450 Balance -3021.000 / -3021.000 184.333 / -315.667 -944.333 / -944.333 -490 / -490 Weight 213 lb 6.519 oz 217 lb 11.2 oz 206 lb 8 oz 203 lb 0.732 oz Constitutional Constitutional: no acute distress *Routine Respiratory Exam Respiratory: Present CTA bilaterally *Routine Cardiovascular Exam Cardiovascular: Present RRR *Routine Extremities Exam Extremities: Present edema Progress Note: A&P Assessment and plan (1) HFrEF (heart failure with reduced ejection fraction): Status: Acute (2) Ischemic cardiomyopathy: Status: Acute (3) Peripheral arterial disease: Status: Acute (4) Hyperkalemia: Status: Acute (5) Oliguria: Status: Acute (6) CKD stage 4 due to type 2 diabetes mellitus: Status: Acute (7) Hyperlipidemia: Status: Acute (8) Diabetes mellitus: Status: Acute (9) COPD (chronic obstructive pulmonary disease): Status: Acute (10) Hypertension: Status: Acute (11) Non-STEMI (non-ST elevated myocardial infarction): Status: Resolved (12) Chronic respiratory failure: Status: Acute (13) PVD (peripheral vascular disease) with claudication: Status: Acute (14) Pleural effusion: Status: Acute (15) Self-care deficit: Status: Acute (16) Aortic stenosis, moderate: Status: Acute (17) Anasarca: Status: Acute (18) Cirrhosis: Status: Acute Assessment and Plan Assessment and Plan for All Diagnoses:: 1. HFrEF -continue IV bumex -Off Nipride and back on oral isosorbide -[employer]UL[employer] DRIER-D implanted 03/01/2024 -unable to add NARESH/ARB/ARNi, spironolactone due to CKD, stage 4 -resume low dose metoprolol succinate 2. Oliguria -Possible ATN from contrast studies -resolved 3. CKD, stage IV -Cr 2.9 (back to baseline) -possible component of ATN due to high contrast load from CT scans -bilateral DIEGO noted on Abd CTA 4. Aortic stenosis, moderate -Echo, 01/2024, 1.2 cm2 5. History of hypertension -Echo, 01/2024, EF 20% with grade 3 diastolic dysfunction 6. Peripheral arterial disease -s/p Left AKA -bilateral severe renal artery stenosis on abdominal CTA this admission -RLE with narrowing at popliteal but 3 vessel runoff into right foot 7. Anasarca on abdominal CTA -Cirrhosis of liver noted 8. Hyperlipidemia -on statin 9. CAD with elevated troponin this admission felt secondary to demand ischemia/strain from HFrEF -[facility], 04/08/2023, 3 ANGELA to LAD which jailed diagonal artery. Chronic RCA occlusion. Mod OM disease, med therapy. Continue diuresis with IV bumex Continue isordil 30 mg TID restart low dose metoprolol succinate Pt wt decreasing and urine output increasing renal angiogram today. Renal angiogram results: Renal artery stenosis as described above which is clinically insignificant Distal small vessel vasculopathy most consistent with hypertensive vasculopathy PLAN 1. Medical management Electronically signed by : Robert Mcfadden MD 04/04/2024 10:55:13
--- NOTE | 2024-04-04 10:11 | P.PN_ITS ---
Subjective *Date: 04/04/24 *Time: 10:11 Pulmonology Exam Inpatient Vital signs and Labs for Last 24 Hours: Temp Pulse Resp BP Pulse Ox O2 Del Method O2 Flow Rate 97.8 F 84 20 138/87 100 Nasal Cannula 2 04/04/24 08:00 04/04/24 08:00 04/04/24 08:00 04/04/24 08:00 04/04/24 08:00 04/04/24 08:42 04/04/24 08:42 FiO2 28 03/28/24 18:59 Laboratory Results - last 24 hr 04/03/24 06:00: POC Glucose 116 H 04/03/24 11:27: WBC 4.0 L, RBC 3.78 L, Hgb 10.0 L, Hct 31.7 L, MCV 83.9, MCH 26.5 L, MCHC 31.5 L, RDW 17.2, Plt Count 189, MPV 10.4, Neut % (Auto) 71.4, Lymph % (Auto) 13.6, [place] % (Auto) 12.1 H, Eos % (Auto) 2.2, Baso % (Auto) 0.5, Neut # (Auto) 2.9, Lymph # (Auto) 0.6 L, [place] # (Auto) 0.5, Eos # (Auto) 0.1, Baso # (Auto) 0.0, Sodium 136, Potassium 3.5, Chloride 93 L, Carbon Dioxide 34 H , Anion Gap 12.5, BUN 79 H, Creatinine 2.90 H, Estimated Creat Clear 38, Estimated GFR 23 L, Est GFR ( Amer) 27 L D, Glucose 150 H, Calcium 8.1 L, Magnesium 1.5 L D, Total Bilirubin 1.8 H, AST 50, ALT 19, Alkaline Phosphatase 296 H, NT-Pro-B Natriuret Pep 06964 H, Total Protein 6.2 L, Albumin 3.5, Globulin 2.7, Albumin/Globulin Ratio 1.3 04/03/24 20:41: POC Glucose 185 H 04/04/24 05:53: POC Glucose 170 H I & O for Labs for Last 24 Hours: Intake & Output 04/01/24 04/02/24 04/03/24 04/04/24 23:59 23:59 23:59 23:59 Intake Total 2778.333 / 2778.333 1717.667 / 2067.667 1953 / 1953 Output Total 4125 / 4425 2275 / 2825 1675 / 2275 1100 / 1100 Balance -1346.667 / -1646.667 -557.333 / -757.333 279 / -321 -1100 / -1100 Weight 213 lb 6.519 oz 217 lb 11.2 oz 206 lb 8 oz 203 lb 0.732 oz Assessment and Plan *Assessment and plan (1) Pleural effusion: Status: Acute Category: Medical Code(s): J90 - Pleural effusion, not elsewhere classified (2) Chronic respiratory failure: Status: Acute Category: Medical Code(s): J96.10 - Chronic respiratory failure, unspecified whether with hypoxia or hypercapnia Plan Mr. Hurley is a 58-year-old male with reported history of heart failure with reduced ejection fraction, CKD, COPD, presented to the ER with worsening respiratory distress and pulmonary was called for further evaluation and management. Patient on this admission has been managed for heart failure exacerbation. Cardiology following. Patient admits significant improvement in his respiratory distress since admission. He admits baseline history of COPD. Denies any significant smoking history. Using oxygen supplementation 2 L for the last 12 months. CTA PE protocol upon admission, no evidence of pulmonary embolism, suboptimal study. Evidence of volume overload on bilateral pleural effusions right greater than left, small. Concerning for cirrhosis. CTA abdomen also concerning for significant vascular disease. On initial examination patient does not appear to be in any severe respiratory distress. On 4 L saturating 99%. No significant wheezing noted on auscultation. Currently receiving albuterol 4 times daily as needed. Chest x-ray from 03/30/2024 no consolidative changes. Improving effusions. Interval update: Plan: Oxygen supplementation as needed to maintain O2 saturation above 90% and above Albuterol 4 times daily as needed Evaluation management of possible cirrhosis given nodular contour of the liver on CT imaging as per primary team. Thank you for involving pulmonary in this patient care. Will follow the patient in pulmonary clinic in 4 to 6 weeks with a PFT walk testing prior to clinic visit
--- NOTE | 2024-04-04 10:22 | PC.NURSE ---
photo lab technician nurses @ bedside
[2024-04-04] MEDS: LIDOCAINE 1% 10ML MDV 20 ML IJ (10:52)
[2024-04-04] MEDS: FENTANYL 100MCG/2ML VIAL 25 MCG IV (10:53)
[2024-04-04] MEDS: MIDAZOLAM HCL 1MG/ML 5ML VIAL 1 MG IV (10:53)
[2024-04-04] MEDS: HEPARIN 1,000 UNITS/500ML NS (CATH LAB) 3000 UNIT IV (10:54)
[2024-04-04] MEDS: 0.9 % SODIUM CHLORIDE 500 ML 25 ML IV (10:54)
[2024-04-04] MEDS: IOPAMIDOL-370 (76%);100ML BOTTLE 10 ML IV (11:28)
--- NOTE | 2024-04-04 14:52 | PC.NURSE ---
attempted to give pt medications. He states he just wants to sleep and he will take the next dose.
--- NOTE | 2024-04-04 17:11 | EXP.ACUTE.PN ---
Subjective *Date: 04/04/24 *Time: 22:12 Interval history: Patient doing exercises in bed with therapy. Stable on 2 L. Tolerating p.o. IV diuretics. Tolerating p.o. intake. Afebrile. Denies any chest pain. Extensive discussion about dispo plan with patient. Adamant that he will go home and has a neighbor that will help him. Refuses attempts at placement. States he has but he needs at home. Plans to get around via wheelchair. I expressed my concern about his safety going home. He again reiterates that he is not going to rehab. When asked about his understanding of his medical conditions, patient states he does not fully understand them. Explained again this admission about his weak heart, his bed kidneys, his poor circulation in his right leg similar to his left leg prior to amputation. Medical Exam Vital signs and Labs for Last 24 Hours: Vital Signs Temp Pulse Resp BP Pulse Ox O2 Del Method O2 Flow Rate 04/04/24 16:15 84 18 147/86 H 99 Nasal Cannula 2 04/04/24 15:15 98.2 F 87 18 142/62 H 100 Nasal Cannula 2 04/04/24 14:15 93 H 18 145/87 H 99 Nasal Cannula 2 04/04/24 13:45 90 18 142/91 H 98 Nasal Cannula 2 04/04/24 13:15 80 18 137/83 98 Nasal Cannula 04/04/24 13:00 Nasal Cannula 2 04/04/24 12:45 87 18 143/86 H 99 Nasal Cannula 2 04/04/24 12:15 81 18 122/83 99 Nasal Cannula 2 04/04/24 12:00 87 16 127/79 92 L Room Air 04/04/24 11:45 82 16 120/78 92 L Room Air 04/04/24 11:30 97.9 F 82 16 129/80 94 L Room Air 04/04/24 09:00 Nasal Cannula 2 04/04/24 08:42 Nasal Cannula 2 04/04/24 08:00 97.8 F 84 20 138/87 100 Nasal Cannula 2 04/04/24 07:00 Nasal Cannula 2 04/04/24 04:54 Nasal Cannula 2 04/04/24 03:00 Nasal Cannula 2 04/04/24 00:55 Nasal Cannula 2 04/04/24 00:00 98.1 F 84 18 136/85 100 Nasal Cannula 3 04/03/24 23:00 Nasal Cannula 2 04/03/24 21:00 Nasal Cannula 2 04/03/24 20:00 98.1 F 64 18 134/74 96 Nasal Cannula 3 04/03/24 20:00 Nasal Cannula 2 04/03/24 19:00 Nasal Cannula 2 Intake and Output 04/04/24 04/04/24 04/04/24 07:59 15:59 23:59 Intake Total 650 / 650 Output Total 600 / 1100 500 / 1100 Balance -600 / -450 150 / -450 Intake: Intake, Oral Amount 650 / 650 Output: Output, Urine Amount 600 / 1100 500 / 1100 Other: Weight 92.1 kg Patient Weight 04/04/24 23:59 Weight 92.1 kg Laboratory Results - last 24 hr 04/03/24 20:41: POC Glucose 185 H 04/04/24 05:53: POC Glucose 170 H I & O for Labs for Last 24 Hours: Intake & Output 04/01/24 04/02/24 04/03/24 04/04/24 23:59 23:59 23:59 23:59 Intake Total 2778.333 / 2778.333 1717.667 / 2067.667 1954 / 1954 650 / 650 Output Total 4125 / 4425 2275 / 2825 1675 / 2275 1100 / 1100 Balance -1346.667 / -1646.667 -557.333 / -757.333 279 / -321 -450 / -450 Weight 96.8 kg 98.747 kg 93.667 kg 92.1 kg Constitutional: Present no acute distress, obese, chronically ill appearing and cooperative Head: Present atraumatic and normocephalic ENT: Present normal exam Neck: Present normal inspection Respiratory: Present prolonged expiratory phase, crackles (Bases bilateral) and diminished air movement; Absent rhonchi or wheezes Cardiac: Present Reg Rate and Rhythm and Systolic Murmur GI: Present soft, distention and normal bowel sounds; Absent tenderness Extremities: Present normal inspection, full ROM and edema (2+ edema to abdomen; weeping from right leg resolved) Comment:: Left AKA Skin: Present intact and erythema (Right lower extremity, secondary to edema.) Neuro: Present Grossly Intact, alert, awake, oriented x 3 and moves all extremities Comment:: Poor medical insight Assessment and Plan *Assessment and plan (1) HFrEF (heart failure with reduced ejection fraction): Status: Acute Category: Medical Code(s): I50.20 - Unspecified systolic (congestive) heart failure (2) Ischemic cardiomyopathy: Status: Acute Category: Medical Code(s): I25.5 - Ischemic cardiomyopathy (3) Peripheral arterial disease: Status: Acute Category: Medical Code(s): I73.9 - Peripheral vascular disease, unspecified (4) Hyperkalemia: Status: Acute Category: Medical Code(s): E87.5 - Hyperkalemia (5) CKD stage 4 due to type 2 diabetes mellitus: Status: Acute Category: Medical Code(s): E11.22 - Type 2 diabetes mellitus with diabetic chronic kidney disease; N18.4 - Chronic kidney disease, stage 4 (severe) (6) Hyperlipidemia: Status: Acute Qualifiers: Hyperlipidemia type: mixed hyperlipidemia Qualified Code(s): E78.2 - Mixed hyperlipidemia Category: Medical Code(s): E78.5 - Hyperlipidemia, unspecified (7) Diabetes mellitus: Status: Acute Qualifiers: Diabetes mellitus complication status: without complication Diabetes mellitus adjunct faculty for medical terminology insulin use: with adjunct faculty for medical terminology use Diabetes mellitus type: type 2 Qualified Code(s): E11.9 - Type 2 diabetes mellitus without complications; Z79.4 - intermediate (current) use of insulin Category: Medical Code(s): E11.9 - Type 2 diabetes mellitus without complications (8) COPD (chronic obstructive pulmonary disease): Status: Acute Qualifiers: COPD type: chronic bronchitis Chronic bronchitis type: unspecified Qualified Code(s): J42 - Unspecified chronic bronchitis Category: Medical Code(s): J44.9 - Chronic obstructive pulmonary disease, unspecified (9) Hypertension: Status: Acute Qualifiers: Hypertension type: primary hypertension Qualified Code(s): I10 - Essential (primary) hypertension Category: Medical Code(s): I10 - Essential (primary) hypertension (10) Non-STEMI (non-ST elevated myocardial infarction): Status: Resolved Category: Medical Code(s): I21.4 - Non-ST elevation (NSTEMI) myocardial infarction (11) Chronic respiratory failure: Status: Acute Category: Medical Code(s): J96.10 - Chronic respiratory failure, unspecified whether with hypoxia or hypercapnia (12) PVD (peripheral vascular disease) with claudication: Status: Acute Category: Medical Code(s): I73.9 - Peripheral vascular disease, unspecified (13) Pleural effusion: Status: Acute Category: Medical Code(s): J90 - Pleural effusion, not elsewhere classified (14) Self-care deficit: Status: Acute Category: Medical Code(s): Z78.9 - Other specified health status (15) Aortic stenosis, moderate: Status: Acute Category: Medical Code(s): I35.0 - Nonrheumatic aortic (valve) stenosis (16) Anasarca: Status: Acute Category: Medical Code(s): R60.1 - Generalized edema (17) Cirrhosis: Status: Acute Category: Medical Code(s): K74.60 - Unspecified cirrhosis of liver Plan This is a 58-year-old male being admitted for acute on chronic CHF exacerbation, severe volume overload with anasarca. Condition complicated by his poorly controlled diabetes, peripheral vascular disease, CKD 4. Continues to require oxygen, though improved to 2 L. Being able to respond to diuresis and milrinone/nitroprusside drip. Negative this morning. Urine light yellow. Breathing over more comfortably. Continue current regimen. Cardiology assisting with care. Monitoring kidney function closely. Seeing improvement in kidney function. Responding to current therapy. Anticipate discharge in the coming days. On baseline oxygen. Problems addressed as follows: #Acute on chronic hypoxic respiratory failure HFrEF exacerbation NSTEMI type II CKD stage IV Oliguria, severe exacerbation of kidney failure ? History of CAD status post 3 stents in March. ? BNP elevated at 63k on admission; repeat 83K yesterday. - ECHO earlier this month shows LVEF 20% with similar inferior akinesis as March this year, had been LVEF 30% earlier this. Patient does not want LifeVest at this time after extensively discussing risks and benefits. ? IV Bumex 2 mg times a day. Kidney function showing improvement yesterday. Refused labs today. - Continue aspirin, Plavix 75 mg. ? Given patient's advanced CKD stage IV, unable to start NARESH/ARB/ARNI, MRA, or SGLT2i. - Continue to hold isosorbide and metoprolol in the setting of his cirrhosis and concern for impaired renal perfusion. Allow for permissive hypertension. Continue hydralazine 50 mg 3 times a day. - Diuresing well, net -10L -Repeat CBC, CMP, magnesium and BNP ordered for the morning. #Suspected cirrhosis ? Nodular contour of liver on CT abdomen suggesting cirrhosis. ? No signs of grossly decompensated cirrhosis, volume overload is low suggestive of HFrEF exacerbation though possible cirrhosis is likely contributing. ? PT/INR, platelets, are relatively unremarkable at this time. Albumin 3.2. ? Will need further evaluation by GI outpatient. #Iron deficiency anemia - Given IV venofer. Continue ferrous sulfate with Miralax. #Physical deconditioning ? Previously recommended SNF placement, patient declined to go. Strong concern about his ability to care for himself at home. Therapy working with him at this time. Continues to need SNF therapy, patient states he will go home with a wheelchair. Has no desire to go to rehab. Type 2 diabetes Diabetic neuropathy -Hemoglobin A1c 7.8 1 month ago; glucose this morning 82 -Continue Lantus to 30 units nightly, continue sliding scale insulin and fingersticks ACHS -SSI for additional glycemic control COPD -Not in acute exacerbation, baseline oxygen 1 to 2 L. Increased oxygen requirement due to volume overload. Tolerating 2 L at this time -DuoNebs as needed, Continue Dulera -Maintain SpO2 greater than 90% HTN HLD -Continue statin, hydralazine as above CODE STATUS: Full code Surrogate decision maker: Saurabh [phone] Lovenox 30 mg subcu daily
--- NOTE | 2024-04-04 18:32 | PC.NURSE ---
pts cath site looks well. dressing is intact. pt denies any pain.
[2024-04-04] MEDS: ATORVASTATIN 40MG TABLET 80 MG PO (20:16)
[2024-04-04] MEDS: humaLOG 100 UNITS/ML 10ML VIAL (SSI) SUBCUT (20:17)
[2024-04-04] MEDS: INSULIN GLARGINE 100 UNITS/ML 3ML FLEXPEN 20 UNIT SUBCUT (20:17)
[2024-04-04] MEDS: TAMSULOSIN 0.4MG CAPSULE 0.4 MG PO (20:18)
[2024-04-05] VITALS: BP 133/84; PULSE 89; RESP 16; TEMP 36.6; O2SAT 99
--- NOTE | 2024-04-05 01:28 | PC.NURSE ---
Pt refused labs and some nighttime meds
[2024-04-05 04:00] VITALS: BP 142/86; PULSE 83; RESP 16; TEMP 36.6; O2SAT 100; BMI 28.6
[2024-04-05 08:00] VITALS: BP 130/95; PULSE 89; RESP 16; TEMP 36.9; O2SAT 98
[2024-04-05] MEDS: ASPIRIN EC 81MG TABLET 81 MG PO (08:20)
[2024-04-05] MEDS: ISOSORBIDE DINITRATE 10 MG TABLET 30 MG PO ×3 (08:20→20:32)
[2024-04-05] MEDS: HYDRALAZINE HCL 25MG TABLET 50 MG PO ×3 (08:20→20:32)
[2024-04-05] MEDS: GABAPENTIN 300MG CAPSULE 300 MG PO ×3 (08:20→20:32)
[2024-04-05] MEDS: BUMETANIDE 1MG/4ML VIAL 2 MG IV ×2 (08:21→12:04)
[2024-04-05] MEDS: FERROUS SULFATE 325MG TABLET 325 MG PO ×2 (08:21→20:32)
[2024-04-05] MEDS: METOPROLOL SUCCINATE XL 25MG TABLET 12.5 MG PO (08:23)
[2024-04-05 09:55] LABS: Basophils % 0.5 % (0.1-2.0); Eosinophils # 0.1 K/mm3 (0.0-0.4); Hematocrit 30.4 % (42.0-52.0); Hemoglobin 9.4 g/dL (14.1-18.0); Lymphocytes # 0.7 K/mm3 (0.7-4.5); Lymphocytes % 14.9 % (10-50); Mean Corpuscular HGB Conc 30.9 g/dL (31.8-35.4); Mean Corpuscular Hemoglobin 25.7 pg (27.0-31.2); Mean Corpuscular Volume 83.1 fl (80-94); Mean Platelet Volume 10.3 fl (7.4-10.4); Monocytes # 0.4 K/mm3 (0.1-1.0); Neutrophils # 3.2 K/mm3 (1.8-7.8); Neutrophils % 72.4 % (37.0-80.0); Platelet Count 193 K/mm3 (142-424); Red Blood Count 3.66 M/mm3 (4.60-6.20); Red Cell Distribution Width 16.8 % (11.5-17.5); White Blood Count 4.4 K/mm3 (4.8-10.8)
[2024-04-05 10:00] LABS: Chloride 93 mmol/L (98-107)
[2024-04-05 10:01] LABS: Albumin Level 3.2 g/dl (3.5-5.0); Potassium 3.6 mmoL/L (3.5-5.1); Sodium 134 mmol/L (136-145)
[2024-04-05 10:04] LABS: Alanine Aminotransferase 19 U/L (12-78); Albumin/Globulin Ratio 1.2 (1.1-1.8); Alkaline Phosphatase 299 U/L (38-126); Anion Gap 12.6 mEq/L (5-15); Aspartate Amino Transferase 50 U/L (17-59); Bilirubin,Total 1.7 mg/dl (0.2-1.3); Calcium 8.4 mg/dl (8.4-10.2); Carbon Dioxide 32 mmol/L (22.0-30.0); Creatinine Clearance Estimated 34 mL/min (50-200); Estimated Glomerular Filt Rate 19 ml/min (>60); GFR (African American) 24 ML/MIN (>60); Globulin 2.7 g/dL (1.3-3.2); Glucose 159 mg/dl (74-100); Magnesium 1.5 mg/dl (1.6-2.3); Total Protein,Serum 5.9 g/dl (6.3-8.2)
[2024-04-05 10:06] LABS: Blood Urea Nitrogen 82 mg/dl (9-20)
[2024-04-05 10:29] LABS: Chol/HDL Ratio 2.3 (1-3.5); Cholesterol 123 mg/dl (140-200); HDL Cholesterol 54 mg/dl (40-60); Triglycerides 66 mg/dl (30-150); VLDL Cholesterol 13 mg/dL (0-40)
[2024-04-05 10:40] LABS: Direct LDL Cholesterol 41.61 mg/dL (100-129)
[2024-04-05 11:08] LABS: NT Pro Brain Natriuretic Pep. 77300 pg/mL (0-125)
[2024-04-05 11:25] LABS: POC Glucose,Bedside 173 (70-110)
--- NOTE | 2024-04-05 11:40 | EXP.CARD.PN ---
Subjective Subjective Date: 04/05/24 Time: 09:30 Principal diagnosis: HFrEF, CKD Interval history: This is a 58-year-old gentleman who was admitted to the hospital with HFrEF, anasarca and stage IV chronic kidney disease. The patient underwent renal angiogram yesterday which showed clinically and significant renal artery stenosis. He does have small vessel vasculopathy consistent with hypertensive vasculopathy. This morning he denies any chest pain or pressure. He denies any shortness of breath. He denies any fever, chills, nausea, vomiting, diarrhea, PND or orthopnea. Exam Data for Last 24 hours Vital signs and Labs for Last 24 Hours: Temp Pulse Resp BP Pulse Ox O2 Del Method O2 Flow Rate 98.4 F 89 16 130/95 H 98 Nasal Cannula 2 04/05/24 08:00 04/05/24 08:00 04/05/24 08:00 04/05/24 08:00 04/05/24 08:00 04/05/24 11:00 04/05/24 11:00 FiO2 28 03/28/24 18:59 Laboratory Results - last 24 hr 04/05/24 09:45: WBC 4.4 L, RBC 3.66 L, Hgb 9.4 L, Hct 30.4 L, MCV 83.1, MCH 25.7 L, MCHC 30.9 L, RDW 16.8, Plt Count 193, MPV 10.3, Neut % (Auto) 72.4, Lymph % (Auto) 14.9, [place] % (Auto) 10.0 H, Eos % (Auto) 2.0, Baso % (Auto) 0.5, Neut # (Auto) 3.2, Lymph # (Auto) 0.7, [place] # (Auto) 0.4, Eos # (Auto) 0.1, Baso # (Auto) 0.0, Sodium 134 L, Potassium 3.6, Chloride 93 L, Carbon Dioxide 32 H, Anion Gap 12.6, BUN 82 H, Creatinine 3.30 H, Estimated Creat Clear 34, Estimated GFR 19 L*, Est GFR ( Amer) 24 L, Glucose 159 H, Calcium 8.4, Magnesium 1.5 L, Total Bilirubin 1.7 H, AST 50, ALT 19, Alkaline Phosphatase 299 H, NT-Pro-B Natriuret Pep 34515 H, Total Protein 5.9 L, Albumin 3.2 L, Globulin 2.7, Albumin/Globulin Ratio 1.2, Triglycerides 66, Cholesterol 123 L, LDL Cholesterol Direct 41.61 L, VLDL Cholesterol 13, HDL Cholesterol 54, Cholesterol/HDL Ratio 2.3 04/05/24 11:19: POC Glucose 173 H I & O for Last 24 hours: Intake & Output 04/02/24 04/03/24 04/04/24 04/05/24 23:59 23:59 23:59 23:59 Intake Total 1717.667 / 2067.667 1953 / 1953 650 / 900 750 / 750 Output Total 2275 / 2825 1675 / 2275 1100 / 1100 725 / 725 Balance -557.333 / -757.333 279 / -321 -450 / -200 Weight 217 lb 11.2 oz 206 lb 8 oz 203 lb 0.732 oz 211 lb 11.2 oz Constitutional Constitutional: no acute distress and average body habitus *Routine HEENT Exam Head: Present normocephalic *Routine Neck Exam Neck: Present supple and full ROM *Routine Respiratory Exam Respiratory: Present CTA bilaterally, able to speak in complete sentences and symmetric chest movement *Routine Cardiovascular Exam Cardiovascular: Present RRR, Normal S1 and Normal S2; Absent murmur *Routine Abdominal Exam Abdominal: Present soft and normoactive bowel sounds *Routine Extremities Exam Extremities: Present edema *Routine Neurological Exam Neurological: Present alert and oriented X3 Routine Psychiatric Exam Psychiatric: Present normal affect Progress Note: A&P Assessment and plan (1) HFrEF (heart failure with reduced ejection fraction): Status: Acute (2) Ischemic cardiomyopathy: Status: Acute (3) Peripheral arterial disease: Status: Acute (4) Hypertension: Status: Acute (5) Hyperlipidemia: Status: Acute (6) CKD stage 4 due to type 2 diabetes mellitus: Status: Acute (7) Diabetes mellitus: Status: Acute (8) COPD (chronic obstructive pulmonary disease): Status: Acute (9) Non-STEMI (non-ST elevated myocardial infarction): Status: Resolved (10) Chronic respiratory failure: Status: Acute (11) Pleural effusion: Status: Acute (12) Self-care deficit: Status: Acute (13) Aortic stenosis, moderate: Status: Acute (14) Anasarca: Status: Acute (15) Cirrhosis: Status: Acute Assessment and Plan Assessment and Plan for All Diagnoses:: Plan: 1. Patient was admitted to the hospital with HFrEF and ischemic cardiomyopathy. The patient has remained on IV Bumex. He has diuresed significantly. Will switch him over to Bumex 2 mg p.o. twice daily. 2. The patient will also continue Isordil. 3. No NARESH/ARB/Arni due to his chronic kidney disease. 4. Coronary artery disease is likely stable. His elevated troponin was most likely a type II [place]. 5. His blood pressure is well-controlled. 6. His LDL goal is less than 55. His LDL is 41. Continue statin. 7. The patient's creatinine is 3.3 today and stable. 8. Peripheral arterial disease is present. He is status post left AKA. This is currently stable. 9. Renal artery stenosis is present but clinically insignificant. Continue aspirin. 10. No further recommendations at this time from a cardiac standpoint. The patient can be discharged home today from a cardiac standpoint follow-up in cardiology clinic in 1 to 2 weeks on an outpatient basis. Thank you for the opportunity to help dissipate in the care of this patient. All recommendations and orders are per Dr. Palm.
[2024-04-05 12:00] VITALS: BP 166/95; PULSE 87; RESP 16; TEMP 36.6; O2SAT 100
--- NOTE | 2024-04-05 12:42 | P.PN_ITS ---
Subjective *Date: 04/05/24 *Time: 12:42 Interval history: Patient's sitting comfortably on room air on evaluation. O2 sats 98-100 on 2 L. Afebrile. Denies chest pain or shortness of breath. Still concerned about swelling in his groin. Able to urinate independently however. No nausea or vomiting Medical Exam Vital signs and Labs for Last 24 Hours: Vital Signs Temp Pulse Resp BP Pulse Ox O2 Del Method O2 Flow Rate 04/05/24 12:00 98 F 87 16 166/95 H 100 Nasal Cannula 04/05/24 11:00 Nasal Cannula 2 04/05/24 08:00 Nasal Cannula 04/05/24 08:00 98.4 F 89 16 130/95 H 98 Nasal Cannula 04/05/24 07:33 Nasal Cannula 04/05/24 06:55 Nasal Cannula 2 04/05/24 05:00 Nasal Cannula 2 04/05/24 04:00 97.8 F 83 16 142/86 H 100 Nasal Cannula 2 04/05/24 03:00 Nasal Cannula 2 04/05/24 01:00 Nasal Cannula 2 04/05/24 00:00 97.9 F 89 16 133/84 99 Nasal Cannula 2 04/04/24 23:00 Nasal Cannula 2 04/04/24 21:00 Nasal Cannula 2 04/04/24 20:00 Nasal Cannula 2 04/04/24 20:00 97.6 F 92 H 18 140/89 100 Nasal Cannula 2 04/04/24 19:00 Nasal Cannula 2 04/04/24 18:36 Nasal Cannula 2 04/04/24 18:10 88 18 154/90 H 99 Nasal Cannula 04/04/24 17:15 89 18 150/89 H 99 Nasal Cannula 2 04/04/24 17:00 Nasal Cannula 2 04/04/24 16:15 84 18 147/86 H 99 Nasal Cannula 2 04/04/24 15:15 98.2 F 87 18 142/62 H 100 Nasal Cannula 2 04/04/24 14:15 93 H 18 145/87 H 99 Nasal Cannula 2 04/04/24 13:45 90 18 142/91 H 98 Nasal Cannula 2 04/04/24 13:15 80 18 137/83 98 Nasal Cannula 04/04/24 13:00 Nasal Cannula 2 04/04/24 12:45 87 18 143/86 H 99 Nasal Cannula 2 Intake and Output 04/04/24 04/05/24 04/05/24 23:59 07:59 15:59 Intake Total 250 / 750 500 / 750 Output Total 725 / 725 Balance - Intake: Intake, Oral Amount 250 / 750 500 / 750 Output: Output, Urine Amount 725 / 725 Other: Number of Unmeasured Voids 0 Number of Bowel Movements 1 Weight 96.026 kg Patient Weight 04/05/24 23:59 Weight 96.026 kg Laboratory Results - last 24 hr 04/05/24 09:45: WBC 4.4 L, RBC 3.66 L, Hgb 9.4 L, Hct 30.4 L, MCV 83.1, MCH 25.7 L, MCHC 30.9 L, RDW 16.8, Plt Count 193, MPV 10.3, Neut % (Auto) 72.4, Lymph % (Auto) 14.9, Mineral % (Auto) 10.0 H, Eos % (Auto) 2.0, Baso % (Auto) 0.5, Neut # (Auto) 3.2, Lymph # (Auto) 0.7, Mineral # (Auto) 0.4, Eos # (Auto) 0.1, Baso # (Auto) 0.0, Sodium 134 L, Potassium 3.6, Chloride 93 L, Carbon Dioxide 32 H, Anion Gap 12.6, BUN 82 H, Creatinine 3.30 H, Estimated Creat Clear 34, Estimated GFR 19 L*, Est GFR ( Amer) 24 L, Glucose 159 H, Calcium 8.4, Magnesium 1.5 L, Total Bilirubin 1.7 H, AST 50, ALT 19, Alkaline Phosphatase 299 H, NT-Pro-B Natriuret Pep 89666 H, Total Protein 5.9 L, Albumin 3.2 L, Globulin 2.7, Albumin/Globulin Ratio 1.2, Triglycerides 66, Cholesterol 123 L, LDL Cholesterol Direct 41.61 L, VLDL Cholesterol 13, HDL Cholesterol 54, Cholesterol/HDL Ratio 2.3 04/05/24 11:19: POC Glucose 173 H I & O for Labs for Last 24 Hours: Intake & Output 04/02/24 04/03/24 04/04/24 04/05/24 23:59 23:59 23:59 23:59 Intake Total 1717.667 / 2067.667 1954 / 1954 650 / 900 750 / 750 Output Total 2275 / 2825 1675 / 2275 1100 / 1100 725 / 725 Balance -557.333 / -757.333 279 / -321 -450 / -200 25 / Weight 98.747 kg 93.667 kg 92.1 kg 96.026 kg Constitutional: Present no acute distress, obese, chronically ill appearing and cooperative Head: Present atraumatic and normocephalic ENT: Present normal exam Neck: Present normal inspection Respiratory: Present prolonged expiratory phase, crackles (Bases bilateral) and diminished air movement; Absent rhonchi or wheezes Cardiac: Present Reg Rate and Rhythm and Systolic Murmur GI: Present soft, distention and normal bowel sounds; Absent tenderness Extremities: Present normal inspection, full ROM and edema (2+ edema to abdomen) Comment:: Left AKA Skin: Present intact and erythema (Right lower extremity, secondary to edema.) Neuro: Present Grossly Intact, alert, awake, oriented x 3 and moves all extremities Comment:: Poor medical insight Assessment and Plan *Assessment and plan (1) HFrEF (heart failure with reduced ejection fraction): Status: Acute Category: Medical Code(s): I50.20 - Unspecified systolic (congestive) heart failure (2) Ischemic cardiomyopathy: Status: Acute Category: Medical Code(s): I25.5 - Ischemic cardiomyopathy (3) Peripheral arterial disease: Status: Acute Category: Medical Code(s): I73.9 - Peripheral vascular disease, unspecified (4) Hyperkalemia: Status: Acute Category: Medical Code(s): E87.5 - Hyperkalemia (5) CKD stage 4 due to type 2 diabetes mellitus: Status: Acute Category: Medical Code(s): E11.22 - Type 2 diabetes mellitus with diabetic chronic kidney disease; N18.4 - Chronic kidney disease, stage 4 (severe) (6) Hyperlipidemia: Status: Acute Qualifiers: Hyperlipidemia type: mixed hyperlipidemia Qualified Code(s): E78.2 - Mixed hyperlipidemia Category: Medical Code(s): E78.5 - Hyperlipidemia, unspecified (7) Diabetes mellitus: Status: Acute Qualifiers: Diabetes mellitus type: type 2 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 Diabetes mellitus complication status: without complication Qualified Code(s): E11.9 - Type 2 diabetes mellitus without complications; Z79.4 - terminal computer operator (current) use of insulin Category: Medical Code(s): E11.9 - Type 2 diabetes mellitus without complications (8) COPD (chronic obstructive pulmonary disease): Status: Acute Qualifiers: COPD type: chronic bronchitis Chronic bronchitis type: unspecified Qualified Code(s): J42 - Unspecified chronic bronchitis Category: Medical Code(s): J44.9 - Chronic obstructive pulmonary disease, unspecified (9) Hypertension: Status: Acute Qualifiers: Hypertension type: primary hypertension Qualified Code(s): I10 - Essential (primary) hypertension Category: Medical Code(s): I10 - Essential (primary) hypertension (10) Non-STEMI (non-ST elevated myocardial infarction): Status: Resolved Category: Medical Code(s): I21.4 - Non-ST elevation (NSTEMI) myocardial infarction (11) Chronic respiratory failure: Status: Acute Category: Medical Code(s): J96.10 - Chronic respiratory failure, unspecified whether with hypoxia or hypercapnia (12) PVD (peripheral vascular disease) with claudication: Status: Acute Category: Medical Code(s): I73.9 - Peripheral vascular disease, unspecified (13) Pleural effusion: Status: Acute Category: Medical Code(s): J90 - Pleural effusion, not elsewhere classified (14) Self-care deficit: Status: Acute Category: Medical Code(s): Z78.9 - Other specified health status (15) Aortic stenosis, moderate: Status: Acute Category: Medical Code(s): I35.0 - Nonrheumatic aortic (valve) stenosis (16) Anasarca: Status: Acute Category: Medical Code(s): R60.1 - Generalized edema (17) Cirrhosis: Status: Acute Category: Medical Code(s): K74.60 - Unspecified cirrhosis of liver Plan This is a 58-year-old male being admitted for acute on chronic CHF exacerbation, severe volume overload with anasarca. Condition complicated by his poorly controlled diabetes, peripheral vascular disease, CKD 4. Continues to require oxygen, though improved to 2 L. Being able to respond to diuresis and mi lrinone/nitroprusside drip. Negative this morning. Urine light yellow. Breathing over more comfortably. Continue current regimen. Cardiology assisting with care. Monitoring kidney function closely. Slight bump in creatinine to. Still making urine. Responding to diuretics. Will monitor kidney function 1 more day, if stable tomorrow, discharge home. On baseline oxygen. Problems addressed as follows: #Acute on chronic hypoxic respiratory failure HFrEF exacerbation NSTEMI type II CKD stage IV Oliguria, severe exacerbation of kidney failure ? History of CAD status post 3 stents in March. ? BNP elevated at 63k on admission; repeat 83K 04/03/2024, elevated at 77,000 today - ECHO earlier this month shows LVEF 20% with similar inferior akinesis as March this year, had been LVEF 30% earlier this. Patient does not want LifeVest at this time after extensively discussing risks and benefits. ? Discontinue IV Bumex in anticipation of going home. Transition to 3 mg p.o. twice daily. - Neg. 10 L since admission. Kidney function with slight bump from 48 hours ago, BUN 82, creatinine 3.3. Potassium 3.6, magnesium 1.5. Replacing per protocol. CBC, CMP, magnesium ordered for the morning - Continue aspirin, Plavix 75 mg. ? Given patient's advanced CKD stage IV, unable to start NARESH/ARB/ARNI, MRA, or SGLT2i. - Resumed on isosorbide dinitrate 30 mg 3 times a day and metoprolol succinate 12.5 mg daily. Continue hydralazine 50 mg 3 times a day. #Suspected cirrhosis ? Nodular contour of liver on CT abdomen suggesting cirrhosis. ? No signs of grossly decompensated cirrhosis, volume overload is low suggestive of HFrEF exacerbation though possible cirrhosis is likely contributing. ? PT/INR, platelets, are relatively unremarkable at this time. Albumin 3.2. ? Will need further evaluation by GI outpatient. #Iron deficiency anemia: Given IV venofer x 1. Hemoglobin 9.4, stable. Continue ferrous sulfate with Miralax. #Physical deconditioning ? Previously recommended SNF placement, patient declined to go. Strong concern about his ability to care for himself at home. Therapy working with him at this time. Continues to need SNF therapy, patient states he will go home with a wheelchair. Has no desire to go to rehab. Type 2 diabetes Diabetic neuropathy -Hemoglobin A1c 7.8 1 month ago; glucose this morning 159 -Continue Lantus to 30 units nightly, continue sliding scale insulin and fingersticks ACHS -SSI for additional glycemic control COPD -Not in acute exacerbation, baseline oxygen 1 to 2 L. Increased oxygen requirement due to volume overload. Tolerating 2 L at this time -DuoNebs as needed, Continue Dulera -Maintain SpO2 greater than 90% HTN HLD -Continue statin, hydralazine as above CODE STATUS: Full code Surrogate decision maker: Saurabh [phone] Lovenox 30 mg subcu daily
[2024-04-05] MEDS: humaLOG 100 UNITS/ML 10ML VIAL (SSI) SUBCUT ×2 (15:32→20:33)
[2024-04-05] MEDS: BUMETANIDE 1 MG TABLET 3 MG PO (15:37)
[2024-04-05 15:48] LABS: POC Glucose,Bedside 191 (70-110)
--- NOTE | 2024-04-05 15:58 | PC.NURSE ---
PT IS RESTING IN BED. ALERT AND ORIENTED X4. EATING AND DRINKING WELL. PT WILL OCCASIONALLY BE UNCOOPERATIVE WITH CARE. PT HAS BEEN ENCOURAGED TO GET OOB TO CHAIR, TURNING AND REPOSITIONING IN BED AND TO ALLOW STAFF TO ASSIST WITH PERSONAL HYGIENE. PT STATED HIS BOTTOM WAS STARTING TO GET SORE TODAY AND WOULD ALLOW STAFF TO WASH BUTTOCKS AND APPLY BARRIER CREAM. LUNG SOUNDS DIMINISHED WITH BILATERAL CRACKLES. ABDOMEN SWOLLEN/NON TENDER WITH ACTIVE BOWEL SOUNDS. PT REFUSED MIRALAX AND LOVENOX THIS MORNING. 2-3+ PITTING EDEMA WITH SCATTERED ABRASIONS NOTED TO RLE. REDNESS/SWELLING NOTED TO SCROTUM. REDNESS NOTED TO BUTTOCKS. O2 SATURATION HAS MAINTAINED 95-100% ON 2 L NC. PT HAS REQUESTED ADDITIONAL MEDICATION FOR RLE PAIN AND REFUSES TYLENOL. PROVIDER NOTIFIED. REFUSED AFTERNOON VSS. WILL CONTINUE TO MONITOR.
[2024-04-05 19:47] VITALS: BP 139/78; PULSE 84; RESP 20; TEMP 36.5; O2SAT 100
[2024-04-05] MEDS: ATORVASTATIN 40MG TABLET 80 MG PO (20:32)
[2024-04-05] MEDS: TAMSULOSIN 0.4MG CAPSULE 0.4 MG PO (20:32)
[2024-04-05] MEDS: PANTOPRAZOLE 40MG TABLET 40 MG PO (20:32)
[2024-04-05] MEDS: INSULIN GLARGINE 100 UNITS/ML 3ML FLEXPEN 20 UNIT SUBCUT (20:33)
[2024-04-05 20:44] LABS: POC Glucose,Bedside 190 (70-110)
[2024-04-06] VITALS: BP 138/88; PULSE 83; RESP 20; TEMP 36.6; O2SAT 100
[2024-04-06 04:00] VITALS: BP 132/80; PULSE 75; RESP 19; TEMP 36.6; O2SAT 99; BMI 29.0
[2024-04-06 06:09] LABS: POC Glucose,Bedside 78 (70-110)
[2024-04-06 08:00] VITALS: BP 125/81; PULSE 88; RESP 20; TEMP 36.6; O2SAT 94
[2024-04-06] MEDS: GABAPENTIN 300MG CAPSULE 300 MG PO ×2 (08:35→12:06)
[2024-04-06] MEDS: HYDRALAZINE HCL 25MG TABLET 50 MG PO ×2 (08:35→12:06)
[2024-04-06] MEDS: BUMETANIDE 1 MG TABLET 3 MG PO (08:35)
[2024-04-06] MEDS: ASPIRIN EC 81MG TABLET 81 MG PO (08:36)
[2024-04-06] MEDS: METOPROLOL SUCCINATE XL 25MG TABLET 12.5 MG PO (08:36)
[2024-04-06] MEDS: FERROUS SULFATE 325MG TABLET 325 MG PO (08:37)
[2024-04-06] MEDS: ISOSORBIDE DINITRATE 10 MG TABLET 30 MG PO ×2 (08:37→12:06)
[2024-04-06 09:00] LABS: Basophils % 0.7 % (0.1-2.0); Eosinophils # 0.1 K/mm3 (0.0-0.4); Eosinophils % 2.6 % (0.1-12.0); Hematocrit 30.1 % (42.0-52.0); Hemoglobin 9.5 g/dL (14.1-18.0); Lymphocytes # 0.6 K/mm3 (0.7-4.5); Lymphocytes % 13.4 % (10-50); Mean Corpuscular HGB Conc 31.6 g/dL (31.8-35.4); Mean Corpuscular Hemoglobin 26.3 pg (27.0-31.2); Mean Corpuscular Volume 83.4 fl (80-94); Mean Platelet Volume 10.4 fl (7.4-10.4); Monocytes # 0.4 K/mm3 (0.1-1.0); Monocytes % 8.2 % (1.7-9.3); Neutrophils # 3.4 K/mm3 (1.8-7.8); Neutrophils % 74.7 % (37.0-80.0); Platelet Count 196 K/mm3 (142-424); Red Blood Count 3.61 M/mm3 (4.60-6.20); Red Cell Distribution Width 16.9 % (11.5-17.5); White Blood Count 4.6 K/mm3 (4.8-10.8)
[2024-04-06 09:14] LABS: Albumin Level 3.3 g/dl (3.5-5.0); Chloride 94 mmol/L (98-107); Potassium 3.6 mmoL/L (3.5-5.1); Sodium 134 mmol/L (136-145)
[2024-04-06 09:16] LABS: Creatinine Clearance Estimated 32 mL/min (50-200); Estimated Glomerular Filt Rate 18 ml/min (>60); GFR (African American) 22 ML/MIN (>60)
[2024-04-06 09:17] LABS: Alanine Aminotransferase 17 U/L (12-78); Albumin/Globulin Ratio 1.2 (1.1-1.8); Alkaline Phosphatase 388 U/L (38-126); Anion Gap 12.6 mEq/L (5-15); Aspartate Amino Transferase 55 U/L (17-59); Bilirubin,Total 1.7 mg/dl (0.2-1.3); Calcium 8.4 mg/dl (8.4-10.2); Carbon Dioxide 31 mmol/L (22.0-30.0); Globulin 2.7 g/dL (1.3-3.2); Glucose 155 mg/dl (74-100); Magnesium 1.6 mg/dl (1.6-2.3)
[2024-04-06 09:28] LABS: Blood Urea Nitrogen 91 mg/dl (9-20)
[2024-04-06] MEDS: MAGNESIUM SULFATE IN WATER 2 GM/50 ML PIGGYBACK IV ×2 (12:49→13:51)
--- NOTE | 2024-04-06 14:10 | EXP.DC.SUM ---
General Admission date:: 03/25/24 Discharge date: 04/06/24 HPI HPI HPI: This patient that is known to me as I took care of him last month., He lives alone severe diabetes O2 dependent.. Notable for left leg amputation above the knee. New since last time I seen him he states he had a pacer placed approximately 2 weeks ago.. Other problems noting that he is gaining several kilograms of weight around 20. That his right leg extremely edematous especially but not all of the knee.. When I came in to examine him he had the leg hanging down and actually the distal part of the foot and the toes were blue. Also clear drainage from around the nailbed of the great toe. Rest showing significant peripheral or vascular disease versus early cellulitis of the lower extremity. Was concerned about blood flow the foot as did not have providers here to be able to see him before Wednesday or of next week. I do feel there is a real possibility that this lower right extremity may require amputation in the near future, CT scan with blood flow shows that he does have flow to the foot there was some blockage but showing peripheral vascular development allowing backflow to certain areas, for this reason feeling that we would not lose the limb immediately decided was time to go ahead and admit the patient., Was given Bumex in the ER 1 dose. Of 2 mg this will be repeated once he gets to the floor and eventually set up on a possible drip. Also will get case management and rn social work involved. The patient is not able to get to his primary care provider due to swelling of his left extremity above-knee amputation cannot put his prosthesis on and thus cannot get to the car to drive to his primary care to be cared for .., Patient is totally adamant against not going to long-term care/rehab as he will afraid that he would be unable to pay his rent and utilities and not have a place to live. He did note he had home health after he went home from the hospital. Presently patient is stable., ,Noting need to be able to get some of the fluid off from abdomen lungs and especially the right leg noting that Bumex 2 mg in the, ER had some good results wanting to start drip but unsure at this point in time how much diuresis he can tolerate., So we will just repeat Bumex to IV at this time and monitor.. This is also due to his chronic kidney injury BUN up in the high 50s creatinine 2.8 also increased lactate troponin as stable at 0.06. Hospital Course Hospital Course Hospital Course: This is a 58-year-old male being admitted for acute on chronic CHF exacerbation, severe volume overload with anasarca. Condition complicated by his poorly controlled diabetes, peripheral vascular disease, CKD 4. Aggressive diuresis was initiated on admission. Necessitated escalation to Bumex drip and milrinone/nitroprusside drip before meaningful response was seen. Oxygen requirement weaned to 2 L which is patient's baseline. Gradually had significant output over the course of his hospitalization. Breathing became more comfortable. Occasionally at rest could be off of oxygen temporarily. Pulmonology and cardiology were consulted due to patient's complex cardiac history, respiratory symptoms, and need for medical optimization. Kidney function monitored closely. Showed slight fluctuation but no significant change in his function or urine output. Able to wean to oral diuretics to maintain good output and stable kidney function. Therapy working with patient. Multiple times recommended SNF placement. Patient is adamant he will not go to rehab. In light of his improvement, refusal for rehab, and no further inpatient needs, will discharge home with home health. Strong concern for potential for readmission. On baseline oxygen. Problems addressed as follows: #Acute on chronic hypoxic respiratory failure HFrEF exacerbation NSTEMI type II CKD stage IV Oliguria, severe exacerbation of kidney failure ? History of CAD status post 3 stents in March. BNP elevated at 63k on admission; repeat 83K 04/03/2024, fluctuated during admission but did not significantly improve. ECHO earlier this month shows LVEF 20% with similar inferior akinesis as March this year, had been LVEF 30% earlier this. AICD in place that was placed early in February. Initiated on Bumex drip along with nitroprusside and milrinone to improve diuresis. Cardiology was consulted to assist with care. On Bumex drip for almost a week, significant negative volume status over 10 L during admission. Showed improvement in edema, abdominal distention, breathing. Kidney function fluctuated and peaked at approximately 4.6. Decreased back down to around his baseline of approximately 3. Electrolytes remained stable. Patient was initiated on sodium bicarbonate 650 mg daily due to metabolic acidosis from significant kidney disease. Continue aspirin and Plavix. Weaned off of Bumex drip to regimen of 2 mg p.o. twice daily. Can need to have neutral or negative volume status daily on this regimen. ? Given patient's advanced CKD stage IV, unable to start NARESH/ARB/ARNI, MRA, or SGLT2i. - Resumed on isosorbide dinitrate 30 mg 3 times a day and metoprolol succinate 12.5 mg daily. Continue hydralazine 50 mg 3 times a day. -Would benefit from repeat labs in 1 to 2 weeks and follow-up with specialist. #Suspected cirrhosis ? Nodular contour of liver on CT abdomen suggesting cirrhosis. No signs of grossly decompensated cirrhosis, volume overload is low suggestive of HFrEF exacerbation though possible cirrhosis is likely contributing. PT/INR, platelets, are relatively unremarkable at this time. Albumin 3.2. Recommend consideration for outpatient GI follow-up. Concerned about patient's follow-up with specialists in light of limited follow-up with cards and pulmonology. Patient wants to think about referral at this time. #Iron deficiency anemia: Given IV venofer x 1. Hemoglobin 9.4, stable. Continue ferrous sulfate with Miralax. #Physical deconditioning ? Previously recommended SNF placement, patient declined to go. Strong concern about his ability to care for himself at home. Therapy working with daily. Patient states he gets around at home in a wheelchair. Has no desire to go to rehab. Feels he has what he needs at home. Case management and social work assisted with care during hospitalization. Type 2 diabetes Diabetic neuropathy -Hemoglobin A1c 7.8 1 month prior to admission. Glucose remained stable throughout admission. Continue Lantus nightly, resume remainder of home regimen at discharge consisting of Ozempic. COPD -Not in acute exacerbation, baseline oxygen 1 to 2 L. Increased oxygen requirement due to volume overload at admission. Improved to 1 to 2 L for several days prior to discharge. Continue breathing treatments at discharge. HTN HLD -Continue statin, hydralazine as above Total time spent on discharge 36 minutes in counseling, documentation, chart review, and direct care with patient. Exam Data for Last 24 hours Vital signs and Labs for Last 24 Hours: Temp Pulse Resp BP Pulse Ox O2 Del Method O2 Flow Rate 97.8 F 83 16 142/86 H 100 Nasal Cannula 2 04/05/24 04:00 04/05/24 04:00 04/05/24 04:00 04/05/24 04:00 04/05/24 04:00 04/05/24 07:33 04/05/24 06:55 FiO2 28 03/28/24 18:59 I & O for Last 24 hours: Intake & Output 04/02/24 04/03/24 04/04/24 04/05/24 23:59 23:59 23:59 23:59 Intake Total 1717.667 / 2067.667 1953 / 4 650 / 900 250 / 250 Output Total 2275 / 2825 1675 / 2275 1100 / 1100 725 / 725 Balance -557.333 / -757.333 279 / -321 -450 / -200 -475 / -475 Weight 98.747 kg 93.667 kg 92.1 kg 96.026 kg Constitutional Constitutional: no acute distress, average body habitus, chronically ill appearing, disheveled and cooperative *Routine HEENT Exam Head: Present normocephalic Eye: Present EOMI and PERRL ENT: Present mucous membranes moist *Routine Neck Exam Neck: Present supple; Absent lymphadenopathy Routine Chest/Breast/Axilla Exam Chest wall: Present pacemaker *Routine Respiratory Exam Respiratory: Present prolonged expiratory phase and crackles (bases); Absent rhonchi or wheezes *Routine Cardiovascular Exam Cardiovascular: Present RRR *Routine Abdominal Exam Abdominal: Present soft, normoactive bowel sounds and distended; Absent tenderness *Routine Rectal Exam Patient deferred: visual exam *Routine Exam Patient deferred: penile exam *Routine Extremities Exam Extremities: Present edema (2+ in right lower extremity; significant improvement since admission); Absent cyanosis or clubbing Comments: Left AKA; thenar wasting bilaterally *Routine Skin Exam Skin: Present warm and wounds; Absent rash Comments: wounds on RLE, stasis ulcers with scab *Routine Neurological Exam Neurological: Present alert, oriented X3 and moving all extremities; Absent altered mental status Routine Psychiatric Exam Psychiatric: Present depressed DS: Diagnosis Discharge Diagnosis (1) HFrEF (heart failure with reduced ejection fraction): Status: Acute Code(s): I50.20 - Unspecified systolic (congestive) heart failure (2) Ischemic cardiomyopathy: Status: Acute Code(s): I25.5 - Ischemic cardiomyopathy (3) Peripheral arterial disease: Status: Acute Code(s): I73.9 - Peripheral vascular disease, unspecified (4) Hyperkalemia: Status: Resolved Code(s): E87.5 - Hyperkalemia (5) CKD stage 4 due to type 2 diabetes mellitus: Status: Acute Code(s): E11.22 - Type 2 diabetes mellitus with diabetic chronic kidney disease; N18.4 - Chronic kidney disease, stage 4 (severe) (6) Hyperlipidemia: Status: Acute Code(s): E78.5 - Hyperlipidemia, unspecified Qualifiers: Hyperlipidemia type: mixed hyperlipidemia Qualified Code(s): E78.2 - Mixed hyperlipidemia (7) Diabetes mellitus: Status: Acute Code(s): E11.9 - Type 2 diabetes mellitus without complications Qualifiers: Diabetes mellitus complication status: without complication Diabetes mellitus senior living insulin use: with terminal gauger supervisor use Diabetes mellitus type: type 2 Qualified Code(s): E11.9 - Type 2 diabetes mellitus without complications; Z79.4 - correction (current) use of insulin (8) COPD (chronic obstructive pulmonary disease): Status: Acute Code(s): J44.9 - Chronic obstructive pulmonary disease, unspecified Qualifiers: COPD type: chronic bronchitis Chronic bronchitis type: unspecified Qualified Code(s): J42 - Unspecified chronic bronchitis (9) Hypertension: Status: Acute Code(s): I10 - Essential (primary) hypertension Qualifiers: Hypertension type: primary hypertension Qualified Code(s): I10 - Essential (primary) hypertension (10) Non-STEMI (non-ST elevated myocardial infarction): Status: Resolved Code(s): I21.4 - Non-ST elevation (NSTEMI) myocardial infarction (11) Chronic respiratory failure: Status: Acute Code(s): J96.10 - Chronic respiratory failure, unspecified whether with hypoxia or hypercapnia (12) PVD (peripheral vascular disease) with claudication: Status: Acute Code(s): I73.9 - Peripheral vascular disease, unspecified (13) Pleural effusion: Status: Acute Code(s): J90 - Pleural effusion, not elsewhere classified (14) Self-care deficit: Status: Acute Code(s): Z78.9 - Other specified health status (15) Aortic stenosis, moderate: Status: Acute Code(s): I35.0 - Nonrheumatic aortic (valve) stenosis (16) Anasarca: Status: Acute Code(s): R60.1 - Generalized edema (17) Cirrhosis: Status: Acute Code(s): K74.60 - Unspecified cirrhosis of liver Meds Home Medications and Allergies Home Medications ?Medication ?Instructions ?Recorded ?Confirmed ?Type umeclidinium 62.5 mcg/actuation 1 inh inhalation DAILY 04/06/23 03/25/24 History blister powder for inhalation (Incruse Ellipta) mometasone-formoterol HFA 100 2 inh inhalation BID 02/23/24 03/25/24 History mcg-5 mcg/actuation aerosol inhaler (Dulera) semaglutide 0.25 mg or 0.5 mg (2 0.25 mg SQ WEEKLY 02/24/24 03/25/24 History mg/3 mL) subcutaneous pen injector (Ozempic) aspirin 81 mg tablet,delayed 81 mg PO DAILY 30 days #30 tabs 02/26/24 03/25/24 Rx release atorvastatin 80 mg tablet 80 mg PO HS 30 days #30 tabs 02/26/24 03/25/24 Rx hydralazine 25 mg tablet 50 mg (2 x 25 mg) PO TID 30 days 02/26/24 03/25/24 Rx #180 tabs insulin glargine 100 unit/mL (3 20 unit (0.2 mL) SQ HS 30 days #6 03/02/24 03/25/24 Rx mL) subcutaneous pen (Basaglar mL KwikPen U-100 Insulin) sodium bicarbonate 650 mg tablet 650 mg PO DAILY 30 days #30 tabs 03/02/24 03/25/24 Rx clopidogrel 75 mg tablet 75 mg PO DAILY 03/25/24 03/25/24 History tamsulosin 0.4 mg capsule 0.4 mg PO HS 30 days #30 caps 04/05/24 Rx bumetanide 2 mg tablet 2 mg PO BID #60 tabs 04/06/24 Rx gabapentin 300 mg capsule 300 mg PO HS #30 caps 04/06/24 Rx isosorbide dinitrate 10 mg tablet 30 mg (3 x 10 mg) PO TID 30 days 04/06/24 03/25/24 Rx #180 tabs metoprolol succinate 25 mg 12.5 mg (1/2 x 25 mg) PO DAILY 30 04/06/24 Rx tablet,extended release 24 hr days #15 tabs New Prescriptions to Start Prescriptions: bumetanide Gurinder Duke gabapentin Gurinder Duke metoprolol succinate Gurinder Duke tamsulosin Gurinder Duke Allergies Allergy/AdvReac Type Severity Reaction Status Date / Time Penicillins Allergy Severe Anaphylaxis Verified 03/25/24 00:40 Discharge Plan Disposition Patient Disposition: Home Health Service Condition: Undetermined Discharge Order Discharge Orders: Discharge Order (Routine); Ordered 04/06/24 Ordered By: Gurinder Duke Follow up Plan Follow up with: Wilberto Vaca MD [Physician] - 04/26/24 1:00 pm Armen Palm MD [Staff Physician] - 04/12/24 1:30 pm Prescriptions/Medication Reconciliation: New tamsulosin 0.4 mg Capsule 0.4 mg PO HS 30 Days Qty: 30 0RF metoprolol succinate 25 mg Tablet Extended Release 24 Hr 12.5 mg PO DAILY 30 Days Qty: 15 0RF gabapentin 300 mg capsule 300 mg PO HS Qty: 30 0RF Continued Incruse Ellipta 62.5 mcg/actuation blister with device 1 inh INHALATION DAILY Dulera 100-5 mcg/actuation HFA aerosol inhaler 2 inh INHALATION BID Patient Comments: INHALE 2 PUFFS BY MOUTH TWICE DAILY. RINSE MOUTH WITH WATER AFTER USE TO REDUCE AFTERTASTE AND INCIDENCE OF CANDIDASIS. DO NOT SWALLOW Ozempic 0.25 mg or 0.5 mg (2 mg/3 mL) pen injector 0.25 mg SQ WEEKLY Patient Comments: INJECT 0.25 MG SUBCUTANEOUSLY ONCE A WEEK FOR 4 WEEKS, THEN INCREASE TO 0.5 MG WEEKLY atorvastatin 80 mg tablet 80 mg PO HS 30 Days Qty: 30 0RF Patient Comments: TAKE 1 TABLET BY MOUTH AT NIGHT hydralazine 25 mg tablet 50 mg PO TID 30 Days Qty: 180 0RF Patient Comments: TAKE 1 TABLET BY MOUTH THREE TIMES DAILY aspirin 81 mg Tablet,Delayed Release (Dr/Ec) 81 mg PO DAILY 30 Days Qty: 30 0RF sodium bicarbonate 650 mg Tablet 650 mg PO DAILY 30 Days Qty: 30 0RF insulin glargine [Basaglar KwikPen U-100 Insulin] 100 unit/mL (3 mL) insulin pen 20 unit SQ HS 30 Days Qty: 6 0RF Patient Comments: INJECT 5 UNITS SUBCUTANEOUSLY EVERY NIGHT AT BEDTIME clopidogrel 75 mg tablet 75 mg PO DAILY bumetanide 2 mg tablet 2 mg PO BID Qty: 60 0RF Changed isosorbide dinitrate 10 mg tablet 30 mg PO TID 30 Days Qty: 180 0RF Discontinued metoprolol succinate 50 mg tablet extended release 24 hr 50 mg PO DAILY gabapentin 300 mg Capsule 300 mg PO HS 30 Days Qty: 30 0RF Problem Reconciliation Problems Reviewed?: Yes Patient Discharge Instructions ACTIVITY: Continue current activity DIET: continue same diet Patient Instructions: Carbohydrate-Counting Diet, DI for Heart Failure Print Language: Kosovan Providers Primary Care Provider: Provider,Referral Admit Provider: Gurinder Duke Attending Provider: Gurinder Duke
--- NOTE | 2024-04-06 14:25 | HMH.PHAINT1 ---
Pharmacy Intervention Comments: COUNSELED PATIENT ON NEW MEDICATIONS PRIOR TO DISCHARGE. PATIENT VERBALIZED UNDERSTANDING.
--- NOTE | 2024-04-06 14:44 | PC.NURSE ---
o2 saturation 98% on room air
== END 2024-04-06 15:30 | disposition home health service (06) | DRG 280 ==
LOC: ER 17:50 → 2ND 19:07 → ICU 03-27 12:52 → 2ND 03-31 16:31
PROVIDERS: Emergency Medicine; Internal Medicine; Nurse Practitioner Family; Physician Assistant; Student in an Organized Health Care Education/Training Program; Admitting Provider Internal Medicine Adolescent Medicine; Emergency Provider Emergency Medicine; Visit Provider Internal Medicine Adolescent Medicine
PROC: B4181ZZ Fluoroscopy of Bilateral Renal Arteries using Low Osmolar Contrast (ICD-10-PCS; principal; 2024-04-04 11:00)
DX: I13.0 Hypertensive heart and chronic kidney disease with heart failure and stage 1 through stage 4 chronic kidney disease, or unspecified chronic kidney disease (principal); I50.23 Acute on chronic systolic (congestive) heart failure; I21.A1 Myocardial infarction type 2; J96.21 Acute and chronic respiratory failure with hypoxia; N18.4 Chronic kidney disease, stage 4 (severe); I25.5 Ischemic cardiomyopathy; I70.1 Atherosclerosis of renal artery; Z99.81 Dependence on supplemental oxygen; E11.65 Type 2 diabetes mellitus with hyperglycemia; Z95.0 Presence of cardiac pacemaker; E11.22 Type 2 diabetes mellitus with diabetic chronic kidney disease; Z79.4 Long term (current) use of insulin; Z79.85 Long-term (current) use of injectable non-insulin antidiabetic drugs; I89.0 Lymphedema, not elsewhere classified; I35.0 Nonrheumatic aortic (valve) stenosis; Z74.1 Need for assistance with personal care; R34 Anuria and oliguria; I25.10 Atherosclerotic heart disease of native coronary artery without angina pectoris; Z95.5 Presence of coronary angioplasty implant and graft; E11.42 Type 2 diabetes mellitus with diabetic polyneuropathy
CPT/HCPCS: 36252; 36415; 71045; 71275; 75635; 80048; 80053; 80061; 82550; 82607; 82728; 82746; 82803; 82962; 83540; 83550; 83605; 83735; 83880; 84100; 84132; 84145; 84484; 85007; 85025; 85378; 85610; 86803; 87040; 87389; 93005; 93971; 94640; 94761; 97110; 97162; 97166; 97530; 97535; 99152; 99291; C1725; C1769; J1205; J1644; J1650; J1756; J1939; J2060; J2250; J2260; J2270; J2919; J3010; J3475; J7060; J7120; J7613; J7620; Q9967

== ENCOUNTER 2024-05-18 05:16 | Emergency (ER) | payer MEDICARE, MEDICAID, SELFPAY ==
[2024-05-18] VITALS (9 sets, daily range): BP systolic 108–137; BP diastolic 77–95; PULSE 95–102; RESP 16–23; TEMP 36.6–36.9; O2SAT 98–100; BMI 23.0
--- NOTE | 2024-05-18 05:16 | XR_ITS ---
PROCEDURE INFORMATION: Exam: XR Chest Exam date and time: 05/18/2024 5:30 AM Age: 58 years old Clinical indication: Shortness of breath; Additional info: SOA, hf, cirrhosis, copd TECHNIQUE: Imaging protocol: Radiologic exam of the chest. Views: 1 view. COMPARISON: CR XR CHEST PORTABLE 03/30/2024 10:55 AM FINDINGS: Lungs: Left lower lobe atelectasis. Probable left-sided effusion. Pleural spaces: Unremarkable. No pleural effusion. No pneumothorax. Heart/Mediastinum: Cardiomegaly. Bones/joints: Unremarkable. IMPRESSION: Cardiomegaly. Left lower lobe atelectasis. Probable left-sided effusion.
[2024-05-18 05:25] LABS: Basophils % 0.3 % (0.1-2.0); Hematocrit 45.9 % (42.0-52.0); Hemoglobin 14.1 g/dL (14.1-18.0); Lymphocytes # 0.3 K/mm3 (0.7-4.5); Lymphocytes % 8.3 % (10-50); Mean Corpuscular HGB Conc 30.7 g/dL (31.8-35.4); Mean Corpuscular Hemoglobin 25.2 pg (27.0-31.2); Mean Corpuscular Volume 82.1 fl (80-94); Mean Platelet Volume 10.8 fl (7.4-10.4); Monocytes # 0.4 K/mm3 (0.1-1.0); Monocytes % 10.5 % (1.7-9.3); Neutrophils # 3.2 K/mm3 (1.8-7.8); Neutrophils % 80.4 % (37.0-80.0); Platelet Count 188 K/mm3 (142-424); Red Blood Count 5.59 M/mm3 (4.60-6.20); Red Cell Distribution Width 19.2 % (11.5-17.5)
[2024-05-18 05:26] LABS: VBG Base Excess -5.1 mmol/L (-2.4-2.3); VBG HCO3 20.6 mmol/L (23-30); VBG Oxygen Saturation 52.4 % (50-70); VBG PCO2 38.8 mmol/L (35-51); VBG PH 7.34 mmol/L (7.31-7.41); VBG PO2 34.2 mmol/L (28-40); VBG Total CO2 21.8 mmol/L (23-27)
[2024-05-18 05:28] LABS: Lactate Venous 4.7 mmol/L (0.4-2.0)
--- NOTE | 2024-05-18 05:29 | ECG_ITS ---
APPROVED REPORT Exam: Resting ECG HR:101 bpm ECG Measurements Heart Rate 101 AXES VT 170 P 49 QRSd 127 QRS 138 QT 387 T 5 QTc 445 Conclusion ELECTRONIC VENTRICULAR PACEMAKER ABNORMAL RHYTHM ECG UNCONFIRMED REPORT Electronically signed by : MED TREJO, 05/18/2024 23:55:09
[2024-05-18 05:30] LABS: Coronavirus 19, PCR Not Detected (NotDetected); Influenza B, PCR Not Detected (NotDetected)
[2024-05-18] MEDS: BUMETANIDE 1MG/4ML VIAL 3 MG IV (05:31)
--- NOTE | 2024-05-18 05:31 | HMH.EDGENADL ---
Discharge Plan Disposition Patient Disposition: Xfer Other Chief Complaint: Shortness of Breath/Dyspnea Prescriptions Prescriptions: No Action Incruse Ellipta 62.5 mcg/actuation blister with device 1 inh INHALATION DAILY Dulera 100-5 mcg/actuation HFA aerosol inhaler 2 inh INHALATION BID Patient Comments: INHALE 2 PUFFS BY MOUTH TWICE DAILY. RINSE MOUTH WITH WATER AFTER USE TO REDUCE AFTERTASTE AND INCIDENCE OF CANDIDASIS. DO NOT SWALLOW atorvastatin 80 mg tablet 80 mg PO HS 30 Days Qty: 30 0RF Patient Comments: TAKE 1 TABLET BY MOUTH AT NIGHT hydralazine 25 mg tablet 50 mg PO TID 30 Days Qty: 180 0RF Patient Comments: TAKE 1 TABLET BY MOUTH THREE TIMES DAILY aspirin 81 mg Tablet,Delayed Release (Dr/Ec) 81 mg PO DAILY 30 Days Qty: 30 0RF insulin glargine [Basaglar KwikPen U-100 Insulin] 100 unit/mL (3 mL) insulin pen 20 unit SQ HS 30 Days Qty: 6 0RF Patient Comments: INJECT 5 UNITS SUBCUTANEOUSLY EVERY NIGHT AT BEDTIME clopidogrel 75 mg tablet 75 mg PO DAILY metoprolol succinate 25 mg Tablet Extended Release 24 Hr 12.5 mg PO DAILY 30 Days Qty: 15 0RF isosorbide dinitrate 10 mg tablet 30 mg PO TID 30 Days Qty: 180 0RF bumetanide 2 mg tablet 2 mg PO BID Qty: 60 0RF gabapentin 300 mg capsule 300 mg PO HS Qty: 30 0RF Referrals Follow up/Referrals: Provider,Referral, MD [Primary Care Provider] - See instructions Clinical Impressions Clinical Impression: Heart failure, Acute liver failure, Influenza A Stand Alone Forms Stand Alone Forms: Transfer Record - ED Print Language Print Language: Belarusian Discharge ED Provider: Chintan Awad General Adult HPI General Chief complaint: Shortness of Breath/Dyspnea Stated complaint: Abdominal Pain Time Seen by Provider: 05/18/24 05:18 Mode of Arrival: EMS Source of Information: Patient and Parent(s) Limitations: No Limitations Description of Symptoms (Recalled from ER Triage Doc. by RN): pt reports with complains of abdominal pain, pt has a mass in his right lower quadrant, as well as shortness of breath. pt reports that he needs the fluid drained again . History of Present Illness HPI narrative: 58-year-old male with history of severe biventricular heart failure, likely cirrhosis, chronic respiratory failure on 2 L nasal cannula, peripheral vascular disease with left lower leg amputation, chronic kidney disease, COPD presents for worsening shortness of breath and swelling. He reports has been worsening for the last several days. He denies fever at home. He was admitted to our hospital for 3 days for heart failure in March. Related Data Home Medications ?Medication ?Instructions ?Recorded ?Confirmed umeclidinium 62.5 mcg/actuation 1 inh inhalation DAILY 04/06/23 05/18/24 blister powder for inhalation (Incruse Ellipta) mometasone-formoterol HFA 100 2 inh inhalation BID 02/23/24 05/18/24 mcg-5 mcg/actuation aerosol inhaler (Dulera) clopidogrel 75 mg tablet 75 mg PO DAILY 03/25/24 05/18/24 Previous Rx's ?Medication ?Instructions ?Recorded aspirin 81 mg tablet,delayed 81 mg PO DAILY 30 days #30 tabs 02/26/24 release atorvastatin 80 mg tablet 80 mg PO HS 30 days #30 tabs 02/26/24 hydralazine 25 mg tablet 50 mg (2 x 25 mg) PO TID 30 days 02/26/24 #180 tabs insulin glargine 100 unit/mL (3 20 unit (0.2 mL) SQ HS 30 days #6 03/02/24 mL) subcutaneous pen (Basaglar mL KwikPen U-100 Insulin) bumetanide 2 mg tablet 2 mg PO BID #60 tabs 04/06/24 gabapentin 300 mg capsule 300 mg PO HS #30 caps 04/06/24 isosorbide dinitrate 10 mg tablet 30 mg (3 x 10 mg) PO TID 30 days 04/06/24 #180 tabs metoprolol succinate 25 mg 12.5 mg (1/2 x 25 mg) PO DAILY 30 04/06/24 tablet,extended release 24 hr days #15 tabs Allergies Allergy/AdvReac Type Severity Reaction Status Date / Time Penicillins Allergy Severe Anaphylaxis Verified 03/25/24 00:40 [facility] Disclaimer: The information contained in this section may have been updated after the patient was seen, as this information can be updated by other users. 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 , BLANKET FOLDER) Lymphedema of right lower extremity Onychodystrophy Thoracic aneurysm without mention of rupture LV dysfunction Ischemic cardiomyopathy Acute blood loss anemia HFrEF (heart failure with reduced ejection fraction) Peripheral arterial disease Stenosis of carotid artery Atypical angina Hyperlipidemia CAD in knik artery Asthma Diabetes mellitus, type 2 Congestive heart failure Above knee amputation of left lower extremity History of left heart catheterization (LHC) Diabetes mellitus Hypertension COPD (chronic obstructive pulmonary disease) Surgical History , BLANKET FOLDER) Stented coronary artery Status post above-knee amputation of left lower extremity History of cholecystectomy Family History , BLANKET FOLDER) Family history of cancer Social History (Updated 03/25/24 @ 01:05 by Sirisha Jacques RN) Smoking Status: Never smoker alcohol intake: never substance use type: denies use current occupational status: disabled Travel in the last 8 weeks: None housing: house current occupational exposures/hazards: No Have you lived/traveled outside [place] in past 30 days?: No Contact w/someone who lives/traveled outside US past 30 days?: No Exposure to someone with infectious disease in past 14 days?: No Do you have a fever (greater than 100.4 F or 38 C)?: No Have you tested positive for COVID-19: No Exposed to someone with COVID-19 in past 14 days?: No Do you have a sore throat?: No Do you have a cough?: No Do you have any weakness?: No Do you have any diarrhea?: No Are you experiencing any unusual bleeding?: No Do you have any muscle aches/pain?: No Do you have any abdominal pain?: No Are you experiencing loss of taste or smell?: No Other 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 Have you received the Flu Vaccine for this season: No Have you received the Pneumonia Vaccine: No ROS Obtained: Yes All systems reviewed & no additional complaints except as documented Physical Exam General General appearance: alert Head Head exam: atraumatic and normocephalic Eye Eye exam: Present normal appearance, PERRL and EOMI ENT ENT exam: Present normal oropharynx and normal external ear exam Neck Neck exam: Present normal inspection and full ROM Chest Chest inspection: Present normal inspection and symmetric chest wall rise; Absent tenderness Respiratory Respiratory exam: Absent normal lung sounds bilaterally (Diminished breath sounds bilaterally, no wheezing) or respiratory distress Cardiovascular Cardiovascular exam: Present regular rate and normal rhythm Abdominal Exam Abdominal exam: Present soft and distention (Abdomen markedly distended, firm, nontender); Absent guarding Extremities Exam Extremities exam: Present other (Left AKA, right lower extremity has findings consistent with severe peripheral vascular disease, though patient does have sensation and movement in the foot. Significant lower extremity swelling to the thigh.) Back Exam Back exam: Present normal inspection; Absent tenderness Neurological Exam Neurological exam: Present alert and oriented X3; Absent motor sensory deficit Psychiatric Psychiatric exam: Present normal affect and normal mood Skin Skin exam: Present warm, dry and normal color Lymphatic Lymphatic Findings: no adenopathy Medical Decision Making Medical Records Medical records reviewed: Yes I reviewed the patient's medical records. Screening: Per USPSTF and CDC recommendations, given the prevalence of disease in our region, it is our hospital?s policy to screen for HIV and viral Hepatitis for all patients aged 18 and over and those with ongoing risk factors. Pedrito Inquiry Pt receiving controlled substance: No Pedrito was queried for this patient: No Vital Signs: 05/18/24 05:16 05/18/24 06:01 05/18/24 07:00 Temperature 97.9 F Temperature Source Oral Pulse Rate 102 H 97 H Pulse Rate [Right] 100 H Respiratory Rate 22 Blood Pressure 123/82 123/89 Blood Pressure [Right Arm] 129/92 H Blood Pressure Mean 94 98 Blood Pressure Mean [Right Arm] 104 02 Sat by Pulse Oximetry 98 100 99 Oxygen Delivery Method Nasal Cannula Nasal Cannula Oxygen Flow Rate (LPM) 2 2 Lab Data Lab results reviewed: Yes I reviewed the patient's lab results. Lab Results 05/18/24 05:15: WBC 4.0 L, RBC 5.59, Hgb 14.1, Hct 45.9, MCV 82.1, MCH 25.2 L, MCHC 30.7 L, RDW 19.2 H, Plt Count 188, MPV 10.8 H, Neut % (Auto) 80.4 H, Lymph % (Auto) 8.3 L, [place] % (Auto) 10.5 H, Eos % (Auto) 0.0 L, Baso % (Auto) 0.3, Neut # (Auto) 3.2, Lymph # (Auto) 0.3 L, [place] # (Auto) 0.4, Eos # (Auto) 0.0, Baso # (Auto) 0.0, PT 19.0 H, INR 1.84 H, APTT 28.5, Sodium 134 L, Potassium 5.1, Chloride 93 L, Carbon Dioxide 25, Anion Gap 21.1 H, BUN 73 H, Creatinine 3.60 H, Estimated Creat Clear 25, Estimated GFR 18 L*, Est GFR ( Amer) 21 L, Glucose 76, Calcium 9.1, Phosphorus 6.4 H, Magnesium 2.4 H, Total Bilirubin 7.3 H, AST 472 H*, ALT 154 H, Alkaline Phosphatase 348 H, Troponin I 0.13 H, Total Protein 6.7, Albumin 3.7, Globulin 3.0, Albumin/Globulin Ratio 1.2, Lipase 58, TSH 11.40 H, Thyroxine (T4) 7.4 05/18/24 05:20: VBG pH 7.34, VBG pCO2 38.8, VBG pO2 34.2, VBG HCO3 20.6 L, VBG Total CO2 21.8 L, VBG O2 Saturation 52.4, VBG Base Excess -5.1 L, VBG Lactic Acid 4.7 H, SARS-CoV-2 (PCR) Not detected, Influenza A Untype (PCR) Detected A, Influenza Type B (PCR) Not detected 05/18/24 06:00: Fluid Source Peritoneal fluid, Fluid Volume 24, Fluid Appearance Normal, Fluid RBC (Auto) 0, Fld Tot Nucleated Cell 244 05/18/24 06:10: Urine Color Zoey, Urine Appearance Cloudy, Urine pH 5.0, Ur Specific [place] >= 1.030, Urine Protein 3+ A, Urine Glucose (UA) Negative, Urine Ketones Negative, Urine Blood Negative, Urine Nitrate Positive A, Urine Bilirubin 3+ A, Urine Urobilinogen 4.0, Ur Leukocyte Esterase Negative, Urine RBC 3-5, Urine WBC Occasional, Ur Squamous Epith Cells 5-10, Amorphous Sediment Trace, Urine Bacteria 4+ 05/18/24 05:15 05/18/24 05:15 Orders (Tests/Meds): ED MEDICATIONS Discontinued Medications Generic Name Dose Route Start Last Admin Trade Name Freq PRN Reason Stop Dose Admin Bumetanide 3 mg 05/18/24 05:20 05/18/24 05:31 Bumetanide 1mg/4ml Vial IV 05/18/24 05:21 3 mg ONCE ONE Administration Oseltamivir Phosphate 75 mg 05/18/24 06:42 Oseltamivir 75mg Capsule PO 05/18/24 06:43 ONCE ONE ORDERS Category Date Time Status CXR --portable [XR chest portable] Stat Exams 05/18/24 05:16 Completed POCUS Point of Care (ER Only) Stat Exams 05/18/24 05:23 Ordered BNP [NT Pro Brain Natriuretic Pep.] Stat Lab 05/18/24 05:15 Results Body Fluid: Cell Count w/ Diff Stat Lab 05/18/24 06:00 Results CBC w/Auto Diff [Complete Blood Count Auto Diff] Stat Lab 05/18/24 05:15 Completed CMP [Comprehensive Metabolic Panel] Stat Lab 05/18/24 05:15 Completed INR [Prothrombin Time INR] Stat Lab 05/18/24 05:15 Completed Lactate Venous Stat Lab 05/18/24 05:22 Ordered Lipase Stat Lab 05/18/24 05:15 Completed Magnesium Stat Lab 05/18/24 05:15 Results PTT [Activated Partial Thrombo Time] Stat Lab 05/18/24 05:15 Completed Phosphorous Stat Lab 05/18/24 05:15 Results Rapid PCR Covid and Flu A/B Stat Lab 05/18/24 05:20 Completed T4 (Thyroxine) Stat Lab 05/18/24 05:15 Completed TSH [Thyroid Stimulating Hormone] Stat Lab 05/18/24 05:15 Completed Troponin I Q3H Lab 05/18/24 05:15 Completed Troponin I Q3H Lab 05/18/24 08:30 Ordered UA [Urinalysis and Microscopic] Stat Lab 05/18/24 06:10 Completed Body Fluid Cult & Gram Stain Stat Micro 05/18/24 06:00 Received Urine Culture Stat Micro 05/18/24 06:10 Received VBG [Venous Blood Gas] Stat RT 05/18/24 05:20 Completed Medical Decision Narrative: 58-year-old male with history of severe biventricular heart failure, likely cirrhosis, COPD, chronic respiratory failure 2 L nasal cannula, diabetes, peripheral vascular disease presents for worsening lower extremity swelling, abdominal distention and shortness of breath. History was obtained via interactive discussion with patient, EMS, chart review. On arrival, patient is [afebrile, hemodynamically stable, satting appropriately, alert, oriented x4, GCS 15], moving all extremities spontaneously. Full physical exam performed and significant for left lower extremity AKA, right lower extremity severe peripheral vascular changes as well as swelling up to the thigh. Abdomen is distended but nontender. Bedside ultrasound performed and significant for large volume ascites, bilateral pleural effusion, severe biventricular dilation with poor EF. Differential includes but is not limited to liver failure, renal failure, heart failure, COVID flu SBP UTI. Patient was given 3 mg of Bumex IV, for symptomatic management and correction of underlying abnormalities. Workup initiated including CBC CMP INR mag Phos VBG troponin BNP EKG chest x-ray paracentesis fluid culture cell count and differential. Paracentesis was performed with 4 L of ascitic fluid removed. On re-evaluation, patient [remains afebrile, HD stable.] Patient has had some urine output but not a significant amount despite Bumex. Laboratory workup independently interpreted by me and significant for flu positive. Significant liver dysfunction with INR 1.84, bilirubin 7.3, AST 479. These are all significantly elevated from patient's prior. Ascitic fluid shows nucleated cell count of 244. Patient has no significant abdominal pain, no fever or leukocytosis. Patient is positive for the flu. Given this, I did not initiate empiric antibiotic therapy for SBP at this time. Other labs significant for elevated troponin, elevated BNP, mild electrolyte derangements Imaging independently interpreted by me and significant for enlarged cardiac silhouette, bilateral pleural effusions. See radiology read for full review of final results. EKG independently interpreted by me and significant for regular rate, ventricular paced rhythm, no obvious ischemic changes. Given patient history, exam and workup, patient's presentation most likely represents acute decompensated liver failure, likely secondary to heart failure Patient also has the flu which may be precipitating factor. He was initiated on Tamiflu. Given liver dysfunction, patient is not appropriate to stay at our facility. Interactive discussion was had with Dr. Messina at [facility] who accepted patient in transfer to [facility]. Procedures Risk/Benefits of Procedure(s) Were Explained: Yes Paracentesis Time Out Performed: Yes Indication: Ascites Procedure: diagnostic paracentesis (and therapeutic) Location: RLQ Local Anesthetic: lidocaine 1% Amount of anesthesia used (mL): 5 Bedside Ultrasound Used: yes, Ascites confirmed and location marked Preparation: sterile prep and drape Amount of fluid obtained (mL): 4,000 Fluid: clear (yellow) Post Procedure Exam: awake, alert Patient Tolerated Procedure: well and no complications Complications: none Limited Ultrasound Indication:: Limited lung ultrasound A focused ultrasound exam of the pleural spaces was performed to evaluate for pneumothorax, pulmonary edema, pleural effusion and/or consolidation. The ultrasound was performed with the following indications, as noted in the H&P: Shortness of breath Identified structures: Bilateral thoracic cavities were examined. Findings: Lung sliding: -Present bilaterally B-lines: -Absent bilaterally Pleural effusion: -Present bilaterally Consolidation: Absent bilateral Impression: Bilateral pleural effusions Images were saved to permanent archive The study was technically adequate [facility] [id number] This study was performed by co, and I personally interpreted all images/videos. Views:: Abdominal ultrasound Indication: Abdominal distention Focused exam of the abdomen was performed using a transabdominal probe. Significant ascitic fluid noted in all quadrants. The study was performed by me and I personally interpreted all images and videos. Images were saved to the patient's permanent archive. This technically accurate. Critical Care Critical Care Time Critical Care Time: Yes Attestation: On 05/18/24, the high probability of a clinically significant, sudden or life threatening deterioration of the following system(s) required my full and direct attention, intervention and personal management. The time I documented below is in addition to time spent performing reported procedures but includes the following listed in this critical care notation. Total Time Total Critical Care Time: 45
[2024-05-18 05:33] LABS: Albumin Level 3.7 g/dl (3.5-5.0); Chloride 93 mmol/L (98-107); Sodium 134 mmol/L (136-145)
[2024-05-18 05:34] LABS: Potassium 5.1 mmoL/L (3.5-5.1)
[2024-05-18 05:36] LABS: Alanine Aminotransferase 154 U/L (12-78); Albumin/Globulin Ratio 1.2 (1.1-1.8); Alkaline Phosphatase 348 U/L (38-126); Anion Gap 21.1 mEq/L (5-15); Aspartate Amino Transferase 472 U/L (17-59); Bilirubin,Total 7.3 mg/dl (0.2-1.3); Blood Urea Nitrogen 73 mg/dl (9-20); Carbon Dioxide 25 mmol/L (22.0-30.0); Creatinine Clearance Estimated 25 mL/min (50-200); Estimated Glomerular Filt Rate 18 ml/min (>60); GFR (African American) 21 ML/MIN (>60); Total Protein,Serum 6.7 g/dl (6.3-8.2)
[2024-05-18 05:37] LABS: Calcium 9.1 mg/dl (8.4-10.2); Glucose 76 mg/dl (74-100)
[2024-05-18 05:41] LABS: Activated Partial Thrombo Time 28.5 seconds (22.5-28.5); INR 1.84 (0.9-1.1)
[2024-05-18 05:46] LABS: Lipase 58 U/L (23-300); Phosphorous 6.4 mg/dl (2.5-4.5)
[2024-05-18 05:47] LABS: Magnesium 2.4 mg/dl (1.6-2.3)
--- NOTE | 2024-05-18 05:59 | PC.NURSE ---
This RN at bedside with MD for paracentiesis. consent signed with MD at bedside. Procedure completed without complications
[2024-05-18 06:02] LABS: Troponin I 0.13 ng/ml (0.00-0.034)
[2024-05-18 06:07] LABS: T4 (Thyroxine) 7.4 ug/dl (5.53-11.0)
[2024-05-18 06:18] LABS: Microscopic, Urine URINE MICROSCOPIC (MICROSCOPIC)
[2024-05-18 06:22] LABS: Appearance,Urine CLOUDY (Clear); Blood, Urine Negative (Negative); Color,Urine AMBER (Yellow); Glucose,Urine (UA) Negative (Negative); Ketones,Urine Negative (Negative); Leukocyte Esterase,Urine Negative (Negative); Nitrate,Urine POSITIVE (Negative); Protein,Urine 3+ (Negative); Specific Gravity, Urine >= 1.030 (1.005-1.030)
--- NOTE | 2024-05-18 06:25 | PC.NURSE ---
This RN at bedside, becerra placed without difficulty. PT cleaned up and breif placed under pt
[2024-05-18 06:37] LABS: Influenza A, PCR Detected (NotDetected)
--- NOTE | 2024-05-18 06:56 | PC.NURSE ---
Called [facility] for xfer. Waiting telephone operators supervisor back. spoke with pt regarding possible transfer.
[2024-05-18 07:02] LABS: Volume,Body Fld. 24 mL
[2024-05-18 07:03] LABS: Appearance,Body Fld. Normal; RBC,Body Fluid 0 cells/uL (< 10 X 10^3); Source, Body Fld. Peritoneal Fluid
[2024-05-18 07:04] LABS: Amorphous Sediment,Urine Trace /lpf; Bilirubin,Urine 3+ (Negative); WBC,Urine Occasional #/hpf (0-3)
[2024-05-18 07:05] LABS: Bacteria,Urine 4+ /lpf
[2024-05-18 07:05] LABS: TNC,Body Fluid 244 cells/uL (< 1000)
--- NOTE | 2024-05-18 07:18 | PC.NURSE ---
1500ml emptied from paracentesis. This RN at bedside will MD removed paracentesis tube.
--- NOTE | 2024-05-18 07:23 | PC.NURSE ---
report called to JAME Cabrera
--- NOTE | 2024-05-18 07:39 | PC.NURSE ---
i explained in detail about tamiflu to pt. also explained. He refused
--- NOTE | 2024-05-18 08:02 | PC.NURSE ---
notified ems of transfer to [facility] and that the run will be als
--- NOTE | 2024-05-18 08:30 | PC.NURSE ---
pt resting in bed no needs at this time call light in reach
--- NOTE | 2024-05-18 08:39 | PC.NURSE ---
second trop sent to lab at this time. lab staff called and notified. no needs per pt at this time.
--- NOTE | 2024-05-18 08:47 | PC.NURSE ---
pt rang his call reyes. I helped reposition him in the bed. no other needs voiced. no new complaints. call reyes in reach.
[2024-05-18 09:27] LABS: Reflex Lactic Add Lactic Reflex
[2024-05-18 09:27] LABS: Troponin I 0.15 ng/ml (0.00-0.034)
--- NOTE | 2024-05-18 09:31 | PC.NURSE ---
discussed repeat lactic order with , no repeat needed at this time
[2024-05-18 11:02] LABS: Mononuclear WBCs,Body Fluid 90 %; Polynuclear WBC,Body Fluid 10 %
[2024-05-18 12:25] LABS: NT Pro Brain Natriuretic Pep. 134000 pg/mL (0-125)
== END 2024-05-18 10:00 | disposition other institution (70) ==
PROVIDERS: Emergency Provider Emergency Medicine
DX: J10.1 Influenza due to other identified influenza virus with other respiratory manifestations (principal); K72.00 Acute and subacute hepatic failure without coma; I50.9 Heart failure, unspecified; R06.02 Shortness of breath; R10.31 Right lower quadrant pain; R18.8 Other ascites
CPT/HCPCS: 49084; 51702; 71045; 80053; 81001; 82803; 83690; 83735; 83880; 84100; 84436; 84443; 84484; 85025; 85610; 85730; 87070; 87086; 87205; 87636; 89051; 93005; 96374; 99291; J1939